=== PATIENT | female | born 1955 | race Caucasian/White ===

== ENCOUNTER → 2025-07-13 05:00 | Outpatient (REF) | payer MEDICARE, SELFPAY ==
--- OUTSIDE RECORDS SUMMARY | 2025-07-13 04:02 | XMS RPT_ITS | CCD ---
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 Primary Care Provider Christy Leach MD Primary Care Provider Christy Mendez Jr. Primary Care Provider Christy Leach MD Primary Care Provider PROVIDER, UNKNOWN Primary Care Unavailable PROVIDER, UNKNOWN Referring Unavailable Antonis, Ino Attending Unavailable PROVIDER, UNKNOWN Referring Unavailable PROVIDER, UNKNOWN Primary Care Unavailable AntonisIno Attending Unavailable Jerome Perdomo Attending Unavailable PROVIDER, UNKNOWN Referring Unavailable PROVIDER, UNKNOWN Primary Care Unavailable Christy Leach MD Primary Care Provider Renuka 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, Jaqueline Unavailable [phone] Christy Leach MD Primary Care Provider Renuka 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, Jaqueline Unavailable Vanessa Carbajal MD, Christy Gill Primary Care Prov ider Renuka 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, Jaqueline Unavailable Frandy 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, Anjana Unavailable Enoc ANAYA, Cuauhtemoc Be Unavailable [phone] Vanessa Carbajal MD, Christy Gill Primary Care Prov ider KIT JACKSON Attending Unavailable MANUEL, KIT Referring Unavailable Irvin LEACH Primary Care Unavailable KIT JACKSON Attending Unavailable MANUEL, KIT Referring Unavailable Irvin LEACH Primary Care Unavailable MANUEL, KIT Attending Unavailable KARNANI, KIT Referring Unavailable DOM DERA, R BRIDGET Primary Care Unavailable KARNANI, KIT Attending Unavailable KARNANI, KIT Referring Unavailable CASE GORDONA, R BRIDGET Primary Care Unavailable KARNANI, KIT Attending Unavailable KARNANI, KIT Referring Unavailable DOM DERA, R BRIDGET Primary Care Unavailable KARNANI, KIT Referring Unavailable KARNANI, KIT Attending Unavailable CASE GORDONA R BRIDGET Primary Care Unavailable KARNANI, KIT Referring Unavailable KARNANI, KIT Attending Unavailable CASE GORDONA, R BRIDGET Primary Care Unavailable KARNANI, KIT Referring Unavailable KARNANI, KIT Attending Unavailable CASE DERA, R BRIDGET Primary Care Unavailable KARNANI, KIT Referring Unavailable KARNANI, KIT Attending Unavailable CASE GORDONA, R BRIDGET Primary Care Unavailable KARNANI, KIT Referring Unavailable KARNANI, KIT Attending Unavailable CASE GORDONA R BRIDGET Primary Care Unavailable CASE GORDONA, R BRIDGET Primary Care Unavailable CASE GORDONA, R BRIDGET Referring Unavailable KARNANI, KIT Attending Unavailable Irvin LEACH Primary Care Unavailable CASE GORDONA, Irvin GILL Referring Unavailable KARNANI, KIT Attending Unavailable CASE GORDONA, R BRIDGET Primary Care Unavailable CASE DERA, R BRIDGET Referring Unavailable KARNANI, KIT Attending Unavailable KARNANI, KIT Attending Unavailable KARNANI, KIT Referring Unavailable CASE GORDONA, R BRIDGET Primary Care Unavailable KARNANI, KIT Attending Unavailable KARNANI, KIT Referring Unavailable CASE GORDONA, R BRIDGET Primary Care Unavailable MOSES ACEVEDO Attending Unavailable CHRISTY MENDEZ JR Primary Care UnaMASON Cintron Attending Unavailable CHRISTY MENDEZ JR Primary Care UnaMOSES Cortez Attending Unavailable CHRISTY MENDEZ JR Primary Care UnavaCUAUHTEMOC Winston Referring Unavailable CUAUHTEMOC STUBBS Attending Unavailable CHRISTY LEACH Primary Care Unavailable CHRISTY LEACH Referring Unavailable CUAUHTEMOC STUBBS Attending Unavailable CHRISTY LEACH Primary Care Unavailable CHRISTY LEACH Referring Unavailable CHRISTY LEACH Attending Unavailable CHRISTY LEACH Primary Care Unavailable CHRISTY LEACH Referring Unavailable CHRISTY LEACH Attending Unavailable CHRISTY LEACH Primary Care Unavailable CUAUHTEMOC STUBBS Referring Unavailable CUAUHTEMOC STUBBS Attending Unavailable CHRISTY LEACH Primary Care Unavailable WILNER KINGSTON Admitting Unavailable LEANNA CORREIA Attending Unavailable CHRISTY LEACH Primary Care Unavailable CUAUHTEMOC MACHADO Attending Unavailable JENNIFER TAYLOR Admitting Unavailable CHRISTY LEACH Primary Care Unavailable Case Rizzo MD, Christy Gill Primary Care Provider Renuka 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, Jaqueline Unavailable Frandy 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, Anjana Unavailable Cuauhtemoc Stubbs MD Unavailable Allergies Allergy Classification Reported Allergen(s) Allergy Type Date of Onset Reaction(s) Facility bimatoprost (2 sources) bimatoprost Drug Allergy 8 Other [facility] Doxycycline (20 sources) Doxycycline Drug Allergy 7 Rash, Hives [facility] Macrolides (antibiotic) (20 sources) Erythromycin Drug Allergy 5 Hives [facility] Mold Extract (20 sources) Mold Extract Drug Allergy 5 Itching [facility] Nitrofurantoin (20 sources) Nitrofurantoin Drug Allergy 5 Itching, Hives [facility] Penicillins (antibiotic) (20 sources) Penicillins Drug Allergy 5 Rash, Hives [facility] Quinolones (antibiotic) (20 sources) levoFLOXacin Drug Allergy 5 Sw[facility], [facility] Doxycycline; Translations: [DOXYCYCLINE] Drug Allergy 7 Rash, Hives [place] (20 sources) Erythromycin; Translations: [ERYTHROMYCIN] Drug Allergy 3 Hives [place] (20 sources) levoFLOXacin Drug Allergy 5 Swelling [place] (20 sources) Mold Extract Drug Allergy 5 Itching [place] (20 sources) Nitrofurantoin; Translations: [NITROFURANTOIN MONOHYD MACRO] Drug Allergy 5 Itching [place] (20 sources) Penicillins; Translations: [PENICILLINS] Propensity to adverse reactions to drug 4 Rash [place] (20 sources) Quinolones (Antibiotic) Propensity to adverse reactions to drug 5 Swelling [place] (20 sources) Macrolides And Ketolides Propensity to adverse reactions to drug 5 [place], [place] (20 sources) Other; Translations: [OTHER] Propensity to adverse reactions 3 Itching [place] (16 sources) bimatoprost; Translations: [BIMATOPROST] Drug Allergy [address] [facility] Work Phone: (16 sources) Doxycycline; Translations: [DOXYCYCLINE HYCLATE] Drug Allergy 7 [facility], [facility] ([facility] sources) levoFLOXacin; Translations: [LEVOFLOXACIN] Drug Allergy 3 Other: See Comments, Angioedema, [facility] (20 sources) Macrolides (Antibiotic); Translations: [MACROLIDE ANTIBIOTICS] Drug Allergy 4 [facility] (16 sources) NITROFURANTOIN, MACROCRYSTALS / Nitrofurantoin, Monohydrate; Translations: [NITROFURANTOIN MONOHYD/M-CRYST] Drug Allergy [address] [facility] (10 sources) Penicillins Propensity to adverse reactions [address] [facility] Work Phone: (16 sources) Mold Spores; Translations: [MOLD SPORES] [facility] Mac[facility] Allergy 4 [facility] (5 sources) Penicillins Propensity to adverse reactions 4 [facility] Work Phone: (20 sources) bimatoprost Drug Allergy 8 Other [facility] (20 sources) Nitrofurantoin Drug Allergy 2 [facility] (20 sources) Penicillins Propensity to adverse reactions to drug 2 [facility] Medications Current Medications Medication Drug Class(es) Dates Sig (Normalized) Sig (Original) acetaminophen 325 mg oral tablet (20 sources) Start: 05-19-2025 End: 05-29-2025 take 650 mg by mouth every six hours as needed for pain and fever Start: 05-11-2025 End: 05-11-2025 Start: 11-04-2024 End: 11-05-2024 take 1 tablet by mouth every six hours as needed for pain 650 mg, Oral, Every 6 hours PRN, mild pain (1-3), Starting on Sun11/04/24 at 1631, Maximum dose of acetaminophen is 4000 mg from all sources in 24 hours. Start: 10-01-2020 take 2 tablets by mo ut every six hours as needed for pain acetaminophen (APAP EXTRA STRENGTH) 500 MG tablet Take 2 tablets by mouth every 6 hours as needed for Pain 120 tablet 0 10/01/2020 Active Start: 09-30-2020 take 650 mg by mouth every four hours as needed for pain, then take 4000 mg by mouth every twenty-four hours as needed for pain 650 mg, Oral, EVERY 4 HOURS PRN, Pain Mild (1-3), Fever, Fever >100.5 F (38 C), Starting Sabina 09/30/20 at 1547 Maximum dose of acetaminophen is 4000 mg from all sources in 24 hours. Post-op Start: 09-30-2020 acetaminophen (TYLENOL) tablet 1,000 mg benoxinate hydrochloride 4 mg/ml / fluorescein sodium 3 mg/ml ophthalmic solution (10 sources) Diagnostic Dye Start: 05-02-2024 End: 05-03-2024 fluorescein-benoxinate 0.3-0.4 % 1 Drop (FLURESS) Start: 05-02-2024 End: 05-03-2024 1 Drop, BOTH EYES, DIRECT ED, Starting on 05/02/24 at 1500, Until 05/03/24 at 0259, Administer for applanation tonometry. In the event of a Fluress shortage, administer 1 drop of Flushing-Fluor into both eyes as directed for applanation tonometry., OPHT CLINIC MED ORDERS Start: 10-26-2023 End: 10-27-2023 fluorescein-benoxinate 0.3-0 .4 % 1 Drop (FLURESS) Start: 04-10-2023 End: 04-11-2023 fluorescein-benoxinate 0.25- 0.4 % 1 Drop (FLURESS) Start: 04-06-2022 End: 04-07-2022 fluorescein-benoxinate 0.25- 0.4 % 1 Drop (FLURESS) Start: 01-06-2022 End: 01-07-2022 fluorescein-benoxinate 0.25- 0.4 % 1 Drop (FLURESS) Start: 12-13-2021 End: 12-13-2021 fluorescein-benoxinate 0.25- 0.4 % 1 Drop (FLURESS) Start: 12-07-2021 End: 12-07-2021 fluorescein-benoxinate 0.25- 0.4 % 1 Drop (FLURESS) Start: 11-30-2021 End: 11-30-2021 fluorescein-benoxinate 0.25- 0.4 % 1 Drop (FLURESS) Start: 11-23-2021 End: 11-23-2021 fluorescein-benoxinate 0.25- 0.4 % 1 Drop (FLURESS) bisacodyl 5 mg delayed release oral tablet (1 source) Stimulant Laxative Start: 09-30-2020 take 5 mg by mouth once daily 5 mg, Oral, DAILY, First dose on Sabina 09/30/20 at 1615 Do not crush or break. Post-op Calcium Citrate / Vitamin D (20 sources) Start: 09-03-2018 take 500 mg by mouth three times daily Calcium Citrate-Vitamin D (CALCIUM CITRATE +D PO) Indications: supplement Take 500 mg by mouth 3 times daily 0 09/03/2018 Active carvedilol 12.5 mg oral tablet (20 sources) alpha-Adrenergic Catrachita, beta-Adrenergic Catrachita Start: 09-30-2020 carvedilol (COREG) tablet 6.25 mg Start: 06-28-2018 carvedilol (CO REG) 6.25 mg tablet Take by mouth q 12 HR. 06/28/2018 Active Start: 06-28-2018 End: 11-01-2023 take 2 tablets by mouth every twelve hours carvedilol (Coreg) 6.25 MG tablet Take 12.5 mg by mouth in the morning and 12.5 mg in the evening. 0 06/28/2018 11/01/2023 Discontinued (Dose adjustment) Start: 06-28-2018 take 1 tablet by cindy th twice daily carvedilol (COREG) 6.25 MG tablet Take 1 tablet by mouth 2 times daily 30 tablet 5 06/28/2018 Active End: 11-05-2024 take 1 tablet by mouth twice daily at mealtime carvedilol (Coreg) 12.5 MG tablet Take 12.5 mg by mouth 2 times daily (with meals). 11/05/2024 Discontinued (Stop taking at discharge) Comment on above: Take by mouth q 12 H R. Continuous Glucose Sensor (FreeStyle Satya 3 Sensor) misc (20 sources) Start: 11-06-2023 Continuous Glucose Sensor (FreeStyle Satya 3 Sensor) misc 1 Device every 14 (fourteen) days. 7 each 3 11/06/2023 Active Start: 11-06-2023 End: 11-06-2023 Continuous Glucose Sensor (F reeStyle Satya 3 Sensor) misc 1 Device every 14 (fourteen) days. 7 each 3 11/06/2023 11/06/2023 Discontinued (Reorder) CPAP (15 sources) CPAP daily at be dtime. Active CPAP daily at be dtime. 0 Active Comment on above: daily at bedtime. CPAP Machine MISC (20 sources) CPAP Machine MIS C Indications: Settings: 10cm H2O RADHA by Does not apply route 0 Active [id number] 0.3 ml EPINEPHrine 1 mg/ml auto-injector (15 sources) alpha-Adrenergic Agonist, beta-Adrenergic Agonist, Catecholamine Start: 05-03-2017 EPINEPHrine (EPIPEN) 0.3 mg/0.3 mL auto-injector Inject 0.3 mg intramuscularly as needed. 05/03/2017 Active Comment on above: Inject 0.3 mg intram uscularly as needed. EPINEPHrine HCl, Anaphylaxis, (EPIPEN IM) (20 sources) EPINEPHrine HCl, Anaphylaxis, (EPIPEN IM) Inject into the muscle as needed 0 Active EPINEPHRINE HCL, ANAPHYLAXIS, IM (20 sources) EPINEPHRINE HCL, ANAPHYLAXIS, IM Inject into the shoulder, thigh, or buttocks. Active EPINEPHRINE HCL, ANAPHYLAXIS, IM Inject into the shoulder, thigh, or buttocks. 0 Active glucose monitoring kit (FREESTYLE) monitoring kit (20 sources) Start: 10-01-2020 glucose monito ring kit (FREESTYLE) monitoring kit USE TO TEST BLOOD GLUCOSE 3 TIMES DAILY 1 kit 0 10/01/2020 Active Start: 10-01-2020 End: 10-01-2020 glucose monitoring kit (FREE STYLE) monitoring kit 1 kit by Does not apply route daily 1 kit 0 10/01/2020 10/01/2020 Discontinued (REORDER) 1 ml hydrALAZINE hydrochloride 20 mg/ml injection (1 source) Arteriolar Vasodilator Start: 09-30-2020 hydrALAZINE (APRESOLINE) injection 10 mg hydroCHLOROthiazide 25 mg oral tablet (20 sources) Thiazide Diuretic Start: 06-22-2017 take 1 tablet by mouth once daily hydroCHLOROthiazide (HYDRODIURIL, ESIDRIX) 25 mg tablet Take 25 mg by mouth once daily. 06/22/2017 Active Comment on above: Take 25 mg by mouth once daily. ibuprofen 600 mg oral tablet (20 sources) Nonsteroidal Anti-inflammator y Drug Start: 10-01-2020 take 1 tablet by mouth four times daily as needed for pain ibuprofen (ADVIL;MOTRIN) 600 MG tablet Take 1 tablet by mouth 4 times daily as needed for Pain 60 tablet 0 10/01/2020 Active Start: 09-30-2020 take 600 mg by mouth every six hours 600 mg, Oral, EVERY 6 HOURS, First dose on Sabina 09/30/20 at 1615 Do not crush or chew. insulin regular human (CONCENTRATED 500 UNIT/ML) (15 sources) inject 7 [IU] by subcutaneous injection once daily insulin regular human (CONCENTRATED 500 UNIT/ML) Inject 7 Units subcutaneously once daily. Active inject 7 [IU] by sub cutaneous injection once daily insulin regular human (CONCENTRATED 500 UNIT/ML) Inject 7 Units subcutaneously once daily. 0 Active inject 20 [IU] by beaulieu bcutaneous injection twice daily insulin regular human (CONCENTRATED 500 UNIT/ML) Inject 20 Units subcutaneously twice daily. 0 Active Comment on above: Inject 20 Units subc utaneously twice daily. Inject 7 Units subcu taneously once daily. loperamide hydrochloride 2 m g oral capsule (20 sources) Opioid Agonist Start: 05-13-2025 End: 05-29-2025 End: 11-05-2024 loperamide (Imodium) 2 MG ca psule Take 2 mg by mouth as needed for diarrhea. 11/05/2024 Discontinued (Stop taking at discharge) losartan potassium 50 mg ora l tablet (20 sources) Angiotensin 2 Receptor Catrachita Start: 05-14-2025 End: 05-20-2026 End: 06-28-2018 take 1 tablet by mouth once daily losartan (COZAAR) 100 MG tablet Indications: Blood Pressure Take 100 mg by mouth daily 0 06/28/2018 Discontinued (REORDER) Multiple Vitamin (multivitamin) tablet (20 sources) take 1 tablet by cindy th once daily Multiple Vitamin (multivitamin) tablet Take 1 tablet by mouth daily. Active MULTIVITAMIN ORAL (15 sources) take 2 tablets by mouth once daily MULTIVITAMIN ORAL Take 2 tablets by mouth once daily. Flintstones-not gummies Active take 2 tablets by mouth once neo ly MULTIVITAMIN ORAL Take 2 tablets by mouth once daily. Flintstones-not gummies 0 Active MULTIVITAMIN ORA L Take by mouth. Flintstones-not gummies 0 Active Comment on above: Take by mouth. [place] stones-not gummies Take 2 tablets by mo uth once daily. Flintstones-not gummies mupirocin 0.02 mg/mg topical ointment (5 sources) RNA Synthetase Inhibitor Antibacterial Start: 04-09-20 End: 04-19-20 mupirocin (Bactroban) 2 % ointment Apply topically 3 times daily for 10 days. 22 g 0 04/09/2023 04/19/2023 Active omeprazole 20 mg delayed release oral capsule (2 sources) Proton Pump Inhibitor Start: 03-20-20 17 take 1 capsule by mouth once daily omeprazole (PRILOSEC) 20 MG delayed release capsule Take 1 capsule by mouth daily 30 capsule 3 03/20/2017 Active oxyCODONE hydrochloride 5 mg oral tablet (2 sources) Opioid Agonist Start: 10-02-19 21 End: 10-06-19 21 take 1 tablet by mouth every six hours as needed for pain oxyCODONE (ROXICODONE) 5 MG immediate release tablet Indications: Post-operative state Take 1 tablet by mouth every 6 hours as needed for Pain for up to 12 doses. Intended supply: 3 days. Take lowest dose possible to manage pain 12 tablet 0 10/01/2020 10/05/2020 Active Start: 09-30-2020 oxyCODONE (MICHEL ICODONE) immediate release tablet 5 mg Pedi Multivit No.7-Folic Aci d 100 mcg chew (5 sources) Pedi Multivit No .7-Folic Acid 100 mcg chew Take 1 tablet by mouth. Active Pedi Multivit No .7-Folic Acid 100 mcg chew Take 1 tablet by mouth. 0 Active Comment on above: Take 1 tablet by cindy th. Pediatric Multivitamins-Iron (CHILDRENS MULTIVITAMIN/IRON PO) (20 sources) Start: 02-08-20 take 2 tablets by mouth once daily Pediatric Multivitamins-Iron (CHILDRENS MULTIVITAMIN/IRON PO) Indications: Supplement Take 2 tablets by mouth daily 0 02/07/2018 Active phenylephrine hydrochloride 25 mg/ml ophthalmic solution (5 sources) alpha-1 Adrenergic Agonist Start: 05-02-20 End: 05-03-20 PHENYLephrine 2.5 % 1 Drop (AK-DILATE, ROSLYN-SYNEPHRINE) Start: 05-02-2024 End: 05-03-2024 1 Drop, BOTH EYES, DIRECT ED, Starting on Sun05/02/24 at 1500, Until 05/03/24 at 0259, Administer for dilation PROTECT FROM LIGHT, OPHT CLINIC MED ORDERS Start: 11-13-2023 End: 11-14-2023 PHENYLephrine 2.5 % 1 Drop ( AK-DILATE, ROSLYN-SYNEPHRINE) Start: 04-10-2023 End: 04-11-2023 PHENYLephrine 2.5 % 1 Drop ( AK-DILATE, ROSLYN-SYNEPHRINE) Start: 04-06-2022 End: 04-07-2022 PHENYLephrine 2.5 % 1 Drop ( AK-DILATE, ROSLYN-SYNEPHRINE) Polyethyl Glycol-Propyl Glycol (SYSTANE OP) (20 sources) Polyethyl Glycol -Propyl Glycol (SYSTANE OP) Apply to eye as needed 0 Active Promethazine (1 source) Phenothiazine Start: 09-30-2020 promethazine (PHENERGAN) tablet 12.5 mg proparacaine hydrochloride 5 mg/ml ophthalmic solution (4 sources) Local Anesthetic Start: 05-02-2024 End: 05-03-2024 proparacaine 0.5 % 1 Drop (ALCAINE) Start: 11-13-2023 End: 11-14-2023 proparacaine 0.5 % 1 Drop (A LCAINE) Start: 04-10-2023 End: 04-11-2023 proparacaine 0.5 % 1 Drop (A LCAINE) Start: 04-06-2022 End: 04-07-2022 proparacaine 0.5 % 1 Drop (A LCAINE) sulfamethoxazole 800 mg / trimethoprim 160 mg oral tablet (20 sources) Dihydrofolate Reductase Inhibitor Antibacterial, Sulfonamide Antimicrobial Start: 04-09-2023 End: 04-16-2023 take 1 tablet by mouth twice daily sulfamethoxazole-trimethoprim (Bactrim DS) 800-160 MG tablet Take 1 tablet by mouth 2 times daily for 7 days. 14 tablet 0 04/09/2023 04/16/2023 Active End: 11-05-2024 take 1 tablet by mouth every twelve hours sulfamethoxazole-trimethoprim (Bactrim D S) 800-160 MG tablet Take 1 tablet by mouth in the morning and 1 tablet in the evening. 11/05/2024 Discontinued (Stop taking at discharge) End: 12-19-2016 take 1 tablet by mouth twice daily sulfamethoxazole-trimethoprim (BACTRIM;SEPTRA) 400-80 MG per tablet Take 1 tablet by mouth 2 times daily 0 12/19/2016 Discontinued (Therapy completed) triamcinolone acetonide 1 mg/ml topical cream (20 sources) Corticosteroid Start: 03-12-2024 triamcinolone acetonide (KENALOG) 0.1 % cream APPLY TOPICALLY TO THE AFFECTED AREA 1 TO 2 TIMES DAILY NEEDED. AVOID FACE AND GROIN 03/12/2024 Active Start: 11-07-2023 End: 05-01-2024 triamcinolone (Kenalog) 0.1 % cream Apply to affected area 1-2 times daily as needed. Avoid face and groin. 30 g 2 2024 05/01/2024 Active Start: 01-17-2023 End: 09-20-2023 triamcinolone (Kenalog) 0.1 % cream Apply to affected area 1-2 times daily as needed. Avoid face and groin. 30 g 2 05/23/2023 09/20/2023 Active Start: 08-02-2022 End: 09-01-2022 triamcinolone (Kenalog) 0.1 % cream Apply topically 2 times daily. 80 g 2 08/02/2022 09/01/2022 Active Start: 07-05-2022 End: 11-05-2024 triamcinolone (Kenalog) 0.1 % cream tropicamide 10 mg/ml ophthalmic solution (5 sources) Anticholinergic Start: 05-02-2024 End: 05-03-2024 tropicamide 1 % 1 Drop (MYDRIACYL) Start: 05-02-2024 End: 05-03-2024 1 Drop, BOTH EYES, DIRECT ED, Starting on Sun05/02/24 at 1500, Until 05/03/24 at 0259, Administer for dilation, OPHT CLINIC MED ORDERS Start: 11-13-2023 End: 11-14-2023 tropicamide 1 % 1 Drop (MYDR IACYL) Start: 04-10-2023 End: 04-11-2023 tropicamide 1 % 1 Drop (MYDR IACYL) Start: 04-06-2022 End: 04-07-2022 tropicamide 1 % 1 Drop (MYDR IACYL) vitamin b12 1 mg sublingual tablet (20 sources) Vitamin B12 Start: 02-07-2018 Cyanocobalamin (VITAMIN B-12) 1000 MCG SUBL Indications: Supplement Place 1,000 mcg under the tongue once a week 0 02/07/2018 Active End: 11-06-2024 take 1 tablet by mouth every week cyanocobalamin (Vitamin B-12) 1000 MCG tablet Take 1,000 mcg by mouth 1 (one) time per week. 11/06/2024 Discontinued (Therapy completed) Comment on above: Take 1,000 mcg by mo uth one time a week. VITAMIN D, CHOLECALCIFEROL, PO (20 sources) Start: 09-03-2018 VITAMIN D, CHOLECALCIFEROL, PO Indications: supplement Take 8,000 Int'l Units by mouth daily Indications: supplement 0 09/03/2018 Active Start: 09-03-2018 VITAMIN D, CHO LECALCIFEROL, PO Indications: supplement Take 4,000 Int'l Units by mouth daily 0 09/03/2018 Active Zinc (20 sources) Start: 06-21-2018 take 1 tablet by cindy once daily Zinc 50 MG TABS Indications: Zinc Deficiency Take 50 mg by mouth daily 0 06/21/2018 Active (2 sources) Start: 01-19-2023 (2 sources) Start: 11-06-2023 (2 sources) Start: 11-06-2023 (2 sources) (6 sources) Start: 05-19-2025 Start: 05-13-2025 End: 05-19-2025 Start: 05-13-2025 End: 05-19-2025 Completed/Discontinued Medications Medication Drug Class(es) Dates Sig (Normalized) Sig (Original) [id number] 200 actuat albuterol 0.09 mg/actuat metered dose inhaler (20 sources) beta2-Adrenergic Agonist Start: 11-16-2015 End: 05-19-2025 Start: 11-16-2015 take 2 puff(s) by in halation every six hours as needed albuterol 108 (90 Base) MCG/ACT inhaler Inhale 2 puffs every 6 hours as needed. 11/16/2015 Active Start: 11-16-2015 albuterol 108 (90 Base) MCG/ACT inhaler Inhale 2 puffs. 0 11/16/2015 Active Start: 04-07-2004 take 2 puff(s) by in halation every six hours as needed ALBUTEROL 90MCG INHALER inhale 2 puffs q6h prn 0 04/07/2004 Active take 2 puff(s) by in halation twice daily as needed for wheezing albuterol (PROVENTIL HFA;VENTOLIN HFA) 108 (90 BASE) MCG/ACT inhaler Indications: asthma Inhale 2 puffs into the lungs 2 times daily as needed for Wheezing 0 Active take 2 puff(s) by in halation twice daily as needed for wheezing albuterol (PROVENTIL HFA;VENTOLIN HFA) 108 (90 BASE) MCG/ACT inhaler Indications: asthma Inhale 2 puffs into the lungs 2 times daily as needed for Wheezing 0 Active Comment on above: inhale 2 puffs q6h p rn ALPRAZolam 0.25 mg disintegrating oral tablet (1 source) Benzodiazepine Start: 10-01-19 End: 10-01-19 21 ALPRAZolam (NIRAVAM) dissolvable tablet 0.25 mg apixaban 5 mg oral tablet (20 sources) Factor Xa Inhibitor Start: 11-03-19 25 End: 05-19-20 atorvastatin 40 mg oral tablet (20 sources) HMG-CoA Reductase Inhibitor Start: 11-03-19 18 take 1 tablet by mouth once daily atorvastatin (LIPITOR) 80 MG tablet Take 1 tablet by mouth daily 90 tablet 3 11/02/2017 Active Start: 03-10-2013 End: 05-19-2025 Comment on above: Take 40 mg by mouth once daily. augmented betamethasone 0.5 mg/ml topical cream (20 sources) Corticosteroid End: 01-12-20 17 augmented betamethasone dipropionate (DIPROLENE AF) 0.05 % cream Apply topically 2 times daily Apply topically 2 times daily. 0 01/11/2017 Discontinued onabotulinumtoxina 100 unt injection (20 sources) Acetylcholine Release Inhibitor Start: 05-13-20 End: 10-02-19 21 onabotulinumtoxin A (BOTOX) injection 200 Units brimonidine tartrate 2 mg/ml ophthalmic solution (20 sources) alpha-Adrenergic Agonist Start: 05-11-20 End: 05-19-20 Start: 11-02-2024 End: 11-05-2024 1 drop, Both Eyes, 3 times d aily, First dose on 11/02/24 at 0900, Substituted for brimonidine (Alphagan P) 0.1% or 0.15%. Start: 10-26-2023 Start: 10-26-2023 brimonidine (A lphaGAN P) 0.1 % ophthalmic solution Administer 1 drop into both eyes in the morning and 1 drop at noon and 1 drop in the evening. 10/26/2023 Active Start: 10-05-2022 End: 10-26-2023 take 0.1 drop(s) into the eye(s) three times daily brimonidine (ALPHAGAN P) 0.1 % drop Indications: Primary open angle glaucoma of both eyes, mild stage , Cortical cataract of both eyes Use 1 Drop in both eyes three times a day. 90 day supply 30 mL 3 10/26/2023 Active Start: 10-05-2022 End: 11-01-2023 brimonidine (Alphagan P) 0.1 % ophthalmic solution 1 drop in the morning and 1 drop at noon and 1 drop in the evening. 0 10/05/2022 11/01/2023 Discontinued (Dose adjustment) Start: 08-02-2021 End: 01-05-2023 brimonidine (Alphagan P) 0.1 % ophthalmic solution every 8 hours. 0 08/02/2021 01/05/2023 Discontinued (Duplicate order) Start: 08-02-2021 take 0.1 drop(s) int o the eye(s) three times daily brimonidine (ALPHAGAN P) 0.1 % drop Indications: Primary open angle glaucoma of both eyes, mild stage , Cortical cataract of both eyes Use 1 Drop in both eyes three times daily. 30 mL 3 08/02/2021 Active take 1 drop(s) into the eye(s) three times daily brimonidine (ALPHAGAN P) 0.1 % SOLN Indications: Glaucoma 1 drop 3 times daily 1 drop into each eye 0 Active Comment on above: Use 1 Drop in both e yes three times daily. Use 1 Drop in both e yes three times daily. 90 day supply Use 1 Drop in both e yes three times a day. 90 day supply calcium chloride 0.0014 meq/ml / potassium chloride 0.004 meq/ml / sodium chloride 0.103 meq/ml / sodium lactate 0.028 meq/ml injectable solution (1 source) Start: 09-30-2020 End: 09-30-2020 lactated ringers infusion calcium citrate 950 mg oral tablet (5 sources) End: 10-01-2020 take 1 tablet by mouth once daily calcium citrate (CALCITRATE) 950 MG tablet Take 1 tablet by mouth daily 0 10/01/2020 Discontinued (Stop Taking at Discharge) CALCIUM CITRATE-VITAMIN D PO (20 sources) End: 12-19-2016 take 600 mg by mouth once CALCIUM CITRATE-VITAMIN D PO Take 600 mg by mouth 0 12/19/2016 Discontinued (DISCONTINUED BY ANOTHER CLINICIAN) ceFAZolin (ANCEF) 3,000 mg in dextrose 5 % 100 mL IVPB (1 source) Start: 09-30-2020 End: 09-30-2020 ceFAZolin (ANCEF) 3,000 mg in dextrose 5 % 100 mL IVPB cefTRIAXone (Rocephin) 1,000 mg in sodium chloride 0.9 % 50 mL IVPB Mini-Bag Plus (4 sources) Start: 11-02-2024 End: 11-04-2024 1,000 mg, IntraVENous, at 100 mL/hr, Administer over 30 Minutes, Every 24 hours, First dose on 11/02/24 at 2100, Mini-Bag Plus bag, Suspected Indication (Select all that apply): Urinary Tract Infection Start: 11-01-2024 End: 11-01-2024 1,000 mg, IntraVENous, at 10 0 mL/hr, Administer over 30 Minutes, Once, On 4/12/25 at 1940, For 1 dose, Mini-Bag Plus bag, Suspected Indication (Select all that apply): Urinary Tract Infection cephalexin 500 mg oral capsule (6 sources) Cephalosporin Antibacterial Start: 11-04-2024 End: 11-06-2024 take 1 capsule by mouth twice daily cephalexin (Keflex) 500 MG capsule Take 1 capsule (500 mg) by mouth 2 times daily for 1 dose. 1 capsule 11/05/2024 11/06/2024 Discontinued (Therapy completed) cholecalciferol 0.05 mg oral tablet (20 sources) Vitamin D Start: 05-12-2025 End: 05-19-2025 End: 11-06-2024 take 1 tablet by mouth once daily cholecalciferol (Vitamin D-3) 50 MCG (2000 UT) tablet Take 2,000 Units by mouth daily. 11/06/2024 Discontinued (Therapy completed) take 1 tablet by cindy th in the morning cholecalciferol (Vitamin D-3) 50 MCG (2000 UT) tablet Take 2,000 Units by mouth in the morning. Active Comment on above: Take 2,000 Units by mouth once daily. Take 4 tablets daily cholecalciferol 9.52 unt/ml / glucose 357 mg/ml oral gel (4 sources) Vitamin D Start: 05-11-2025 End: 05-19-2025 Start: 11-01-2024 End: 11-05-2024 15 g, Oral, As needed, low b lood sugar, Starting on 11/01/24 at 2330, If blood glucose less than 50 mg/dL and patient ALERT and NOT NPO, give 2 tubes glucose gel. If blood glucose less than 70 mg/dL and patient ALERT and NOT NPO, give 1 tube glucose gel. Repeat blood glucose in 15 minutes. If blood glucose is less than 70 mg/dL, repeat treatment and recheck blood glucose in 15 minutes x2 and notify provider. citalopram 20 mg oral tablet (20 sources) Serotonin Reuptake Inhibitor Start: 10-01-2020 End: 05-19-2025 citalopram (Marjorie XA) 20 MG tablet Take by mouth Every 24 hours. Active End: 06-22-2017 citalopram (CELEXA) 40 MG ta blet Indications: depression Take 20 mg by mouth daily Indications: depression 0 06/22/2017 Discontinued (DOSE ADJUSTMENT) Comment on above: Take 20 mg by mouth. Take 20 mg by mouth once daily. Continuous Blood Gluc Sensor (FreeStyle Satya 2 Sensor) misc (20 sources) Start: 07-07-2022 End: 11-06-2023 Continuous Blood Gluc Sensor (FreeStyle Satya 2 Sensor) misc 1 Device every 14 (fourteen) days. 9 each 3 07/07/2022 11/06/2023 Discontinued (Med list cleanup) Start: 07-07-2022 Continuous Blo od Gluc Sensor (FreeStyle Satya 2 Sensor) misc 1 Device every 14 (fourteen) days. 9 each 3 07/07/2022 Active Drug or medicament (substanc e) (6 sources) Start: 05-12-2025 End: 05-19-2025 Start: 05-12-2025 End: 05-19-2025 End: 05-19-2025 0.5 ml dulaglutide 1.5 mg/ml auto-injector (15 sources) GLP-1 Receptor Agonist Start: 07-19-2022 End: 07-19-2023 inject 0.75 mg by subcutaneous injection every week dulaglutide (Trulicity) 0.75 MG/0.5ML solution pen-injector Inject 0.75 mg under the skin 1 (one) time per week. 12 each 3 07/19/2022 10/06/2022 Discontinued (Med list cleanup) Start: 04-08-2021 Dulaglutide (T RULICITY) 0.75 MG/0.5ML SOPN Inject 0.75 mg into the skin once a week 12 pen 3 04/08/2021 Active F18 FDG radio-isotope injection 11.682 millicurie (2 sources) Start: 2025 End: 2025 11.682 millicurie, IntraVENous, Once, On Sun01/02/25 at 1100, For 1 dose famotidine 20 mg oral tablet (1 source) Histamine-2 Receptor Antagonist Start: 09-30-2020 End: 09-30-2020 famotidine (PEPCID) tablet 20 mg 2 ml fentaNYL 0.05 mg/ml injection (3 sources) Opioid Agonist Start: 12-22-2024 End: 12-22-2024 IntraVENous, As needed, Starting on Sun12/22/24 at 1018, Intraprocedure Start: 09-30-2020 End: 09-30-2020 fentaNYL (SUBLIMAZE) injecti on 25 mcg fluconazole 150 mg oral tablet (20 sources) Azole Antifungal Start: 09-21-2022 End: 11-02-2023 take 1 tablet by mouth once fluconazole (Diflucan) 150 MG tablet TAKE 1 TABLET BY MOUTH 1 TIME FOR 1 DAY 0 09/21/2022 11/02/2023 Discontinued (Therapy completed) Start: 05-17-2022 End: 11-05-2024 take 1 tablet by mouth once daily as needed fluconazole (Diflucan) 200 MG tablet Take 1 tablet by mouth daily. PRN yeast infections 05/17/2022 11/05/2024 Discontinued (Stop taking at discharge) Start: 08-03-2020 fluconazole (D IFLUCAN) 200 mg tablet Take 150 mg by mouth once daily. As needed 08/03/2020 Active Start: 08-03-2020 take 1 tablet by cindy th once daily as needed fluconazole (DIFLUCAN) 200 mg tablet Take 200 mg by mouth once daily. As needed 0 08/03/2020 Active Comment on above: Take 200 mg by mouth once daily. As needed Take 150 mg by mouth once daily. As needed fluticasone propionate 0.05 mg/actuat metered dose nasal spray (5 sources) Corticosteroid Start: 04-12-20 End: 10-02-19 fluticasone (FLONASE) 50 MCG/ACT nasal spray 1 spray by Nasal route daily 1 Bottle 3 04/12/2017 10/01/2020 Discontinued (Stop Taking at Discharge) furosemide 40 mg oral tablet (20 sources) Loop Diuretic End: 01-23-20 take 1 tablet by mouth once daily furosemide (LASIX) 40 MG tablet Indications: HTN, edema, pt states she does not take due to incontinence Take 40 mg by mouth daily 0 01/22/2018 Discontinued (Patient Choice) gabapentin 100 mg oral capsule (1 source) Anti-epileptic Agent Start: 10-01-19 End: 10-01-19 gabapentin (NEURONTIN) capsule 100 mg glucagon (rdna) 1 mg injection (5 sources) Antihypoglycemic Agent Start: 05-11-20 End: 05-19-20 Start: 11-01-2024 End: 11-05-2024 1 mg, IntraMUSCular, PRN, lo w blood sugar, Blood glucose less than 70 mg/dL and patient NOT ALERT or NPO and does not have IV access., Starting on 11/01/24 at 2330, After administration, attempt intravenous access and start D5W at 100 mL/hr. Repeat blood glucose in 15 minutes x2 and notify provider. Start: 09-30-2020 glucagon (rDNA ) injection 1 mg 50 ml glucose 50 mg/ml injec tion (20 sources) Start: 05-11-2025 End: 05-19-2025 Start: 05-11-2025 End: 05-19-2025 Start: 11-02-2024 End: 11-05-2024 Start: 11-01-2024 End: 11-05-2024 100 mL/hr, IntraVENous, PRN, Blood sugar less than 70mg/dL, Starting on 11/01/24 at 2330, Start infusion following administration of dextrose 50% or glucagon. Start: 11-01-2024 End: 11-05-2024 12.5 g, IntraVENous, PRN, lo w blood sugar, Blood glucose less than 70 mg/dL and patient NOT ALERT or NPO., Starting on 11/01/24 at 2330, If patient does not respond within 5 minutes, repeat dose x1. Start D5W at 100 mL/hour until ordering provider can be reached. Repeat blood glucose in 15 minutes. If blood glucose is less than 70 mg/dL, repeat treatment and recheck blood glucose in 15 minutes x2. If using Glucostabilizer, dose as instructed per system. Start: 09-30-2020 dextrose 5 % s olution Start: 09-30-2020 glucose (GLUTO SE) 40 % oral gel 15 g Start: 09-30-2020 dextrose 50 % IV solution glucose 4 g chew able tablet Chew 16 g if needed for low blood sugar. Active glucose 4 g chew able tablet Chew 16 g if needed for low blood sugar. 0 Active 250 ml glucose 50 mg/ml / sodium chloride 4.5 mg/ml injection (2 sources) Start: 11-01-2024 End: 11-05-2024 take 250 mg intravenously every hour as needed 250 mL/hr, IntraVENous, Continuous PRN, blood glucose LESS than or EQUAL to 250 mg/dL, Starting on 11/01/24 at 1908, When blood glucose equals 250 mg/dL or below, DISCONTINUE saline IV Fluid using Per Protocol order mode and start using this dextrose containing IV fluid order. DO NOT restart saline infusion if subsequent blood glucose returns above 250 mg/dL. 250 ml heparin sodium, porcine 100 unt/ml injection (4 sources) Unfractionated Heparin, Anti-coagulant Start: 11-02-2024 End: 11-02-2024 4,000 Units, IntraVENous, Once, On 11/02/24 at 0250, For 1 dose, Initial one time bolus Start: 11-02-2024 End: 11-02-2024 5-30 Units/kg/hr 107 kg (5.3 5-32.1 mL/hr, rounded to 5.4-32.1 mL/hr), IntraVENous, Continuous, Starting on 11/02/24 at 0250, LOW Dose Heparin Weight Based Dosing (CAD/STEMI/NSTEMI/AFIB/ECMO) >>>>Initial dose: 9 units/kg/hr 95.9 Hold heparin for 60 min Decrease infusion by 2 units/kg/hr - notify prescriber; Check aPTT: 6 hours after initiation and 6 hours after every dose change - every 12 hrs x 1 day after 2 consecutive therapeutic aPTT - daily after every 12 hrs x 1 day is complete. Contact provider for further directions if: a) The patient has reached maximum dose and has not achieved the goal of therapy or b) If this medication is held outside of ordered parameters hydrocortisone valerate 2 mg/ml topical cream (20 sources) Corticosteroid End: 11-05-2024 hydrocortisone (West-Dmitri) 0.2 % cream Apply topically every 12 hours. 11/05/2024 Discontinued (Stop taking at discharge) hydrocortisone v alerate (WESTCORT) 0.2 % cream Apply to affected area twice daily. Active hydrocortisone 0 .5 % cream Indications: Skin Rash Apply topically 2 times daily as needed Apply topically 2 times daily. 0 Active Comment on above: Apply to affected ar ea twice daily. 1 ml HYDROmorphone hydrochloride 1 mg/ml cartridge (1 source) Opioid Agonist Start: 09-30-2020 End: 09-30-2020 HYDROmorphone (DILAUDID) injection 0.5 mg insulin glargine 100 unt/ml injectable solution (20 sources) Insulin Analog Start: 05-11-2025 End: 05-19-2025 Start: 11-02-2024 End: 05-19-2026 Start: 11-12-2023 LANTUS SOLOSTA R U-100 INSULIN 100 unit/mL (3 mL) 11/12/2023 Active Start: 05-09-2023 End: 11-05-2024 insulin glargine (Lantus SoloStar) 100 UNIT/ML pen Inject 16 Units under the skin Nightly. 15 mL 3 11/06/2023 11/05/2024 Discontinued (Stop taking at discharge) Start: 07-07-2022 End: 10-06-2023 inject 25 [IU] by subcutaneous injection once daily insulin glargine (Lantus) 100 UNIT/ML injection Inject 25 Units under the skin Nightly. 30 mL 3 10/06/2022 10/06/2023 Active Start: 03-07-2022 End: 10-06-2022 Lantus SoloStar 100 UNIT/ML pen Inject 25 Units under the skin Nightly. 0 03/07/2022 10/06/2022 Discontinued Start: 04-18-2021 insulin glargi ne (BASAGLAR KWIKPEN) 100 UNIT/ML injection pen Inject 25 Units into the skin nightly 8 pen 3 04/18/2021 Active insulin lispro 100 unt/ml in jectable solution (20 sources) Insulin Analog Start: 11-02-2024 End: 11-05-2025 Start: 05-09-2023 End: 11-05-2024 inject 16 [IU] by subcutaneous injection once daily insulin lispro (HumaLOG) 100 UNIT/ML pen injection Inject 16 Units under the skin daily with supper. 14.4 mL 3 11/06/2023 11/05/2024 Discontinued (Stop taking at discharge) Start: 09-30-2020 insulin lispro (HUMALOG) injection vial 0-18 Units Insulin Lispro (Humalog) injection 0-18 Units (2 sources) Start: 11-02-2024 End: 11-05-2024 Insulin Lispro (Humalog) injection 0-18 Units insulin isophane, human 100 unt/ml injectable suspension (3 sources) Start: 11-01-2024 End: 11-02-2024 inject 1 dose by subcutaneous injection every twelve hours 16 Units (rounded from 16.05 Units = 0.15 Units/kg 107 kg), SubCUTAneous, Every 12 hours, First dose on 11/01/24 at 1930, Give at onset and every 12 hours. If BGT is Start: 09-30-2020 End: 09-30-2020 insulin NPH (HUMULIN N;NOVOL IN N) injection vial 25 Units iopamidol (Isovue-370) 76 % injection 75 mL (4 sources) Start: 11-11-2024 End: 11-11-2024 take 75 mL intravenously once as needed 75 mL, IntraVENous, IMG once PRN, contrast, Starting on Sun11/11/24 at 0913, For 1 dose Start: 12-04-2023 End: 12-04-2023 iopamidol (Isovue-370) 76 % injection 75 mL ketorolac tromethamine 5 mg/ml ophthalmic solution (20 sources) Nonsteroidal Anti-inflammatory Drug, Cyclooxygenase Inhibitor Start: 08-05-2021 End: 11-13-2023 keTORolac (ACULAR) 0.5 % ophthalmic solution Use 1 Drop in the left eye four times daily. Start 2 days before surgery, then continue afterwards. 5 mL 2 08/05/2021 11/13/2023 Discontinued (Course of therapy completed) Start: 08-05-2021 keTORolac (ACU LAR) 0.5 % ophthalmic solution Use 1 Drop in the left eye four times daily. Start 2 days before surgery, then continue afterwards. 5 mL 2 08/05/2021 Active Comment on above: Use 1 Drop in the le ft eye four times daily. Start 2 days before surgery, then continue afterwards. Use 1 Drop in the ri ght eye four times daily. Start 2 days before surgery, then continue afterwards. levothyroxine (20 sources) l-Thyroxine Start: 05-12-2025 End: 05-19-2025 Start: 11-02-2024 End: 11-05-2024 take 175 ug by mouth once daily before breakfast 175 mcg, Oral, Daily before breakfast, First dose on 11/02/24 at 0600, Tube feeding (TF) interaction, obtain physician order to manage, recommend holding TF for 30 minutes before and after dose. Start: 10-01-2020 take 175 ug by mouth once dre y 175 mcg, Oral, DAILY, First dose on Sun10/01/20 at 0700 Tube feeding (TF) interaction, obtain physician order to manage, recommend holding TF for 30 minutes before and after dose. Start: 06-06-2016 End: 11-06-2023 levothyroxine (S ynthroid, Levoxyl) 137 MCG tablet Take 175 mcg by mouth in the morning. 0 Active Comment on above: Take 175 mcg by mout h once daily. 10 ml lidocaine hydrochloride 10 mg/ml injection (2 sources) Antiarrhythmic, Amide Local Anesthetic Start: 12-23-19 End: 12-23-19 As needed, Starting on Sun12/22/24 at 1020, Intraprocedure 50 ml magnesium sulfate 40 mg/ml injection (2 sources) Start: 05-11-20 End: 05-12-20 melatonin 5 mg oral tablet (16 sources) End: 05-19-20 metFORMIN hydrochloride 500 mg oral tablet (20 sources) Biguanide Start: 10-07-19 End: 01-20-20 take 1 tablet by mouth in the morning metFORMIN (Glucophage) 500 MG tablet Take 1 tablet (500 mg) by mouth in the morning and 1 tablet (500 mg) in the evening. Take with meals. 360 tablet 3 10/06/2022 01/19/2023 Discontinued (Therapy completed) Start: 04-08-2021 take 1 tablet by cindy th twice daily at mealtime metFORMIN (GLUCOPHAGE-XR) 500 MG extended release tablet Take 1 tablet by mouth 2 times daily (with meals) 180 tablet 0 04/08/2021 Active Start: 10-01-2020 take 1 tablet by cindy th twice daily at mealtime metFORMIN (GLUCOPHAGE-XR) 500 MG extended release tablet Take 1 tablet by mouth 2 times daily (with meals) 180 tablet 0 10/01/2020 Active End: 05-19-2025 take 1 tablet by cindy th in the morning metFORMIN (Glucophage) 500 MG tablet Take 500 mg by mouth in the morning and 500 mg in the evening. 0 Active Comment on above: Take 500 mg by mouth twice daily. 5 ml metoprolol tartrate 1 m g/ml injection (20 sources) beta-Adrenergic Catrachita Start: 05-13-2025 End: 05-19-2025 Start: 05-11-2025 End: 05-19-2026 Start: 11-03-2024 End: 11-05-2025 Start: 11-03-2024 take 25 mg by mouth once 25 mg , Oral, Once, On 11/03/24 at 1215, For 1 dose Start: 11-02-2024 End: 11-03-2024 take 25 mg by mouth twice daily 25 mg, Oral, 2 times d aily, First dose on 11/02/24 at 0250 miconazole nitrate 0.02 mg/mg topical powder (6 sources) Azole Antifungal Start: 05-12-2025 End: 05-19-2025 2 ml midazolam 1 mg/ml injection (2 sources) Benzodiazepine Start: 12-22-2024 End: 12-22-2024 IntraVENous, As needed, Starting on Sun12/22/24 at 1018, Intraprocedure 24 hr mirabegron 50 mg extended release oral tablet (20 sources) beta3-Adrenergic Agonist End: 11-05-2024 mirabegron ER (Myrbetriq) 50 MG 24 hr tablet Every 24 hours. PRN 11/05/2024 Discontinued (Stop taking at discharge) take 50 mg by mouth once daily M IRABEGRON ORAL Take 50 mg by mouth once daily. Active Comment on above: Take 50 mg by mouth. Take 50 mg by mouth once daily. Multiple Vitamin (MULTIVITAMINS PO) (20 sources) End: 03-07-2018 take 1 mg by mouth once daily Multiple Vitamin (MULTIVITAMINS PO) Indications: supplement Take 1 mg by mouth daily Indications: supplement 0 03/07/2018 Discontinued (ERROR) multivitamin, Pediatric, (Flintstones Gummies) chewable tablet (20 sources) End: 11-06-2024 multivitamin, Pediatric, (Flintstones Gummies) chewable tablet Chew 2 tablets. With iron 11/06/2024 Discontinued (Therapy completed) multivitamin, Pe diatric, (Flintstones Gummies) chewable tablet Chew 2 tablets. With iron Active multivitamin, Pe diatric, (Flintstones Gummies) chewable tablet Chew 2 tablets. With iron 0 Active multivitamin, Pe diatric, (Flintstones Gummies) chewable tablet Chew 1 tablet. 0 Active 1 ml naloxone hydrochloride 0.4 mg/ml injection (2 sources) Opioid Antagonist Start: 05-11-2025 End: 05-19-2025 nitroglycerin 0.4 mg sublingual tablet (2 sources) Nitrate Vasodilator Start: 11-02-2024 End: 11-05-2024 0.4 mg, SubLINGual, Every 5 min PRN, chest pain, Starting on 11/02/24 at 0131, May administer up to 3 doses per episode. olmesartan medoxomil 40 mg oral tablet (20 sources) Angiotensin 2 Receptor Catrachita Start: 12-02-2018 End: 11-05-2024 take 1 tablet by mouth once daily olmesartan (BENIcar) 40 MG tablet Indications: Primary hypertension Take 1 tablet (40 mg) by mouth daily. 90 tablet 3 05/09/2023 11/05/2024 Discontinued (Stop taking at discharge) Comment on above: 1 tab(s) once daily. 2 ml ondansetron 2 mg/ml injection (1 source) Serotonin-3 Receptor Antagonist Start: 09-30-2020 End: 09-30-2020 ondansetron (ZOFRAN) injection 4 mg Pedi Multivit No.7-Folic Acid (FLINTSTONES MULTI-VIT GUMMIES) 100 mcg chew (10 sources) Pedi Multivit No.7-Folic Acid (FLINTSTONES MULTI-VIT GUMMIES) 100 mcg chew Take 1 tablet by mouth. 0 Active Comment on above: Take 1 tablet by cindy th. perflutren protein A microsphere (Optison) 3 mL in sodium chloride (PF) 0.9 % 10 mL IV (2 sources) Start: 11-02-2024 End: 11-05-2024 0-10 mL, IntraVENous, IMG once PRN, other, Suboptimal echo image, Starting on 11/02/24 at 1306, For 1 dose, CV Procedural Medications, Administer via slow IVP for suboptimal echocardiogram enhancement. May administer as divided doses to reach optimal image enhancement polyethylene glycol 3350 [id number] mg powder for oral solution (4 sources) Osmotic Laxative Start: 05-11-2025 End: 05-19-2025 take 17 g by mouth every twenty-four hours as needed for constipation Start: 11-02-2024 End: 11-05-2024 take 17 g by mouth every twenty-four gt rs as needed for constipation potassium chloride 20 meq po wder for oral solution (20 sources) Start: 05-14-2025 End: 05-14-2025 Start: 03-01-2015 End: 01-22-2018 potassium chloride (MICRO-K) 10 MEQ CR capsule Indications: doesn't take Take 10 mEq by mouth daily 0 03/01/2015 01/22/2018 Discontinued (Patient Choice) prednisoLONE acetate 10 mg/ml ophthalmic suspension (20 sources) Corticosteroid Start: 08-05-2021 End: 11-13-2023 prednisoLONE acetate (PRED FORTE, ECONOPRED PLUS) 1 % ophthalmic suspension Use 1 Drop in the left eye four times daily. Start day of surgery. 15 mL 2 08/05/2021 11/13/2023 Discontinued (Course of therapy completed) Start: 08-05-2021 prednisoLONE a cetate (PRED FORTE, ECONOPRED PLUS) 1 % ophthalmic suspension Use 1 Drop in the left eye four times daily. Start day of surgery. 15 mL 2 08/05/2021 Active Comment on above: Use 1 Drop in the le ft eye four times daily. Start day of surgery. Use 1 Drop in the ri ght eye four times daily. Start the day of surgery Probiotic Product (ACIDOPHILUS PROBIOTIC BLEND PO) (20 sources) End: 06-21-2018 Probiotic Product (ACIDOPHILUS PROBIOTIC BLEND PO) Indications: Supplement Take 2 capsules by mouth as needed 0 06/21/2018 Discontinued (ERROR) Proteins (20 sources) End: 11-05-2024 PROTEIN PO Take by mouth. 11/05/2024 Discontinued (Stop taking at discharge) PROTEIN PO Take by mouth. Active PROTEIN PO Take by mouth. 0 Active PROTEIN PO Take by mouth daily 0 Active insulin, regular, human 100 unt/ml injectable solution (20 sources) Insulin Start: 05-11-2025 End: 05-11-2025 Start: 11-01-2024 End: 11-02-2024 1-50 Units/hr (1-50 mL/hr), IntraVENous, Continuous, Starting on 11/01/24 at 1915, As guided by calculator flowsheet Low target: 150 High target: 200 *Do NOT stop, pause, or decrease insulin drip outside of calculator without an order from ATTENDING physician ONLY *If anion gap (AG) is not able to be calculated due to CO2 250 mg/dL: If BGT increases increase infusion by 2 units/hr. If BGT decreases look at anion gap - For anion gap LESS than or EQUAL to 12 do not change insulin. - For anion gap GREATER than 12 increase insulin drip by 2 units/hr. Administer maintenance IV fluid per order For BGT 201-250 mg/dL: If BGT increases increase infusion by 2 units/hr. If BGT decreases look at anion gap - For anion gap LESS than or EQUAL to 12 do not change insulin. - For anion gap GREATER than 12 increase insulin drip by 2 units/hr. Discontinue saline IV fluid per protocol and start D5/.45NS @ 250ml/hr (w/ or w/o KCL, depending on order) For BGT 151-200 mg/dL: For first BGT result between 151 and 200: - For anion gap LESS than or EQUAL to 12 decrease insulin drip by 25% and start/continue D5/.45NS @ 250ml/hr (w/ or w/o KCL, depending on order) - For anion gap GREATER than 12 do not change insulin and notify provider For subsequent BGT results between 151 and 200: Do not change insulin drip rate or D5/.45NS fluid rate. Call provider if BGT rebounds to > 200. For BGT 101-150 mg/dL: For first BGT result between 101 and 150: - For anion gap LESS than or EQUAL to 12 decrease insulin drip by 25% and discontinue D5/.45NS and start D10 at 200ml/hr. - For anion gap GREATER than 12 do not change insulin and notify provider For subsequent BGT results between 101 and 150: Do not change insulin drip rate or D10 rate. For BGT 70-100 mg/dL: For first BGT between 70 and 100: - For anion gap LESS than or EQUAL to 12 decrease insulin drip by 50% and start/continue D10 at 200ml/hr. Call provider. - For anion gap GREATER than 12 do not change insulin and notify provider Repeat BGT every 30 minutes until BGT is >= 100 or until 2 consecutive BGTs remain >= 70. For subsequent BGTs between 70 and 100: Do not change insulin drip rate. For ALL BGT = 70. BUD: 30 days at room temperature Start: 01-19-2023 End: 05-09-2023 HumuLIN R 500 UNIT/ML CONCEN TRATED injection 8 units with breakfast 5 units with dinner per orange tip insulin syringe 60 mL 3 01/19/2023 05/09/2023 Discontinued Start: 10-19-2022 End: 01-19-2023 HumuLIN R 500 UNIT/ML CONCEN TRATED injection 8 units with breakfast 5 units with dinner 0 10/19/2022 01/19/2023 Discontinued (Reorder) Start: 10-01-2020 insulin regula r human (humuLIN R U-500 KWIKPEN) 500 UNIT/ML concentrated injection pen 50 Units Start: 09-30-2020 insulin regula r (HUMULIN R;NOVOLIN R) injection 10 Units Start: 01-25-2018 insulin regula r human (HUMULIN R) 500 UNIT/ML concentrated injection vial Indications: AM and after dinner, pt is currently taking less due to Opti fast Draw up to 22 units before breakfast and dinner 1 vial 8 01/25/2018 Active Start: 12-01-2015 End: 03-27-2017 insulin regular human (HUMUL IN R) 500 UNIT/ML injection 18 units in am and 20 units pm 4 vial 3 12/01/2015 03/27/2017 Discontinued (REORDER) End: 11-06-2023 inject 7 [IU] by subcutaneous injection at mealtime insulin regular (HumuLIN R) 500 UNIT/ML CONCENTRATED injection Inject 7 Units under the skin. When she eats first meals 0 11/06/2023 Discontinued (Med list cleanup) End: 10-06-2022 inject 7 [IU] by subcutaneous injection once daily insulin regular (HumuLIN R) 500 UNIT/ML CONCENTRATED injection Inject 7 Units under the skin daily. 0 10/06/2022 Discontinued (Therapy completed) End: 10-01-2020 insulin regular human (HUMUL IN R U-500) 500 UNIT/ML concentrated injection vial Inject 10 Units into the skin once Daily with breakfast 0 10/01/2020 Discontinued (Stop Taking at Discharge) insulin regular human (HUMULIN R U-500) 500 UNIT/ML concentrated injection vial Inject 10 Units into the skin 2 times daily (with meals) 0 Active Semaglutide,0.25 or 0.5MG/DO S, 2 MG/3ML solution pen-injector (20 sources) Start: 10-06-2022 End: 01-19-2023 Semaglutide,0.25 or 0.5MG/DO S, 2 MG/3ML solution pen-injector Inject 0.25-0.5 mg under the skin 1 (one) time per week. 0.25 mg weeklyx 4 weeks then 0.5 mg weekly 9 mL 3 10/06/2022 01/19/2023 Discontinued (Therapy completed) Start: 10-06-2022 Semaglutide,0. 25 or 0.5MG/DOS, 2 MG/3ML solution pen-injector Inject 0.25-0.5 mg under the skin 1 (one) time per week. 0.25 mg weeklyx 4 weeks then 0.5 mg weekly 9 mL 3 10/06/2022 Active 50 ml sodium chloride 9 mg/m l injection (20 sources) Start: 05-11-2025 End: 05-19-2025 Start: 05-11-2025 End: 05-19-2025 Start: 12-22-2024 End: 12-23-2024 take 50 mL intravenously every hour 50 mL/hr, IntraVENous, Continuous, Starting on 12/22/24 at 0815, Preprocedure Start: 11-02-2024 End: 11-03-2024 take 75 mL intravenously every hour 75 mL/hr, IntraVENous, Continuous, Starting on 11/02/24 at 0245 Start: 11-01-2024 End: 11-01-2024 take 250 mg intravenously every hour 250 mL/hr, IntraVENous, Continuous, Starting on 11/01/24 at 1915, When blood glucose equals 250 mg/dL or below, DISCONTINUE saline IV fluid using Per Protocol order mode and start using the dextrose containing IV fluid order previously placed as CONTINUOUS PRN. DO NOT restart saline infusion if subsequent blood glucose returns above 250 mg/dL. Start: 11-01-2024 End: 11-01-2024 1,000 mL, IntraVENous, at 1, 000 mL/hr, Administer over 1 Hours, Once, On 11/01/24 at 1735, For 1 dose Start: 09-30-2020 10 mL, Intrave nous, EVERY 12 HOURS SCHEDULED (2 times per day), First dose on Sabina 09/30/20 at 2100, Post-op Start: 09-30-2020 take 10 mL intravenous route o nce 10 mL, Intravenous, PRN, Line Care, Starting Sabina 09/30/20 at 1547 After every IV line use Post-op therapeutic multivitamin-minerals (Theragran-M) tablet (2 sources) Start: 05-12-2025 End: 05-19-2025 12 hr timolol 5 mg/ml ophthalmic solution (20 sources) beta-Adrenerg ic Catrachita Start: 10-26-2023 take 1 drop(s) into the eye(s) in the morning timolol (Timoptic) 0.5 % ophthalmic solution Administer 1 drop into both eyes in the morning and 1 drop in the evening. 10/26/2023 Active Start: 10-05-2022 End: 05-19-2025 Start: 10-05-2022 End: 11-01-2023 take 1 drop(s) into the eye(s) in the morning timolol (Timoptic) 0.5 % ophthalmic solution 1 drop in the morning and 1 drop in the evening. 0 10/05/2022 11/01/2023 Discontinued (Dose adjustment) Start: 08-02-2021 timolol maleat e (TIMOPTIC) 0.5 % ophthalmic solution Use 1 Drop in both eyes twice daily. 15 mL 3 08/02/2021 Active Comment on above: Use 1 Drop in both e yes twice daily. Use 1 Drop in both e yes twice daily. 90 day supply Use 1 Drop in both e yes two times a day. 90 day supply tobramycin 3 mg/ml ophthalmic solution (20 sources) Aminoglycoside Antibacterial Start: End: take 1 drop(s) into the eye(s) four times daily tobramycin (TOBREX) 0.3 % ophthalmic solution Use 1 Drop in the right eye four times daily. Start 2 days before surgery. 5 mL 2 08/05/2021 11/13/2023 Discontinued (Course of therapy completed) Start: 08-05-2021 take 1 drop(s) into the eye(s) four times daily tobramycin (TOBREX) 0.3 % ophthalmic solution Use 1 Drop in the right eye four times daily. Start 2 days before surgery. 5 mL 2 08/05/2021 Active Comment on above: Use 1 Drop in the ri ght eye four times daily. Start 2 days before surgery. Use 1 Drop in the le ft eye four times daily. Start 2 days before surgery. UNABLE TO FIND (1 source) End: 10-06-2022 UNABLE TO FIND valsartan 320 mg oral tablet (20 sources) Angiotensin 2 Receptor Catrachita Start: 11-08-2021 End: 01-19-2023 valsartan (Diovan) 320 MG tablet Comment on above: Take 320 mg by mouth once daily. (2 sources) End: 05-19-2025 (2 sources) Start: 11-06-2023 End: 05-19-2025 (4 sources) Start: 05-12-2025 End: 05-12-2025 Start: 05-11-2025 End: 05-12-2025 (14 sources) Start: 05-12-2025 End: 05-13-2025 take 2000 mg intravenously every eight hours Start: 05-12-2025 End: 05-19-2025 [Order 1 Start] Name: Insuli n Lispro (Humalog) injection 0-12 Units Signed Summary: 0-12 Units, SubCUTAneous, 3 times daily with meals, First dose on Sun05/12/25 at 0800, Medium Dose Correction Algorithm Glucose: Dose: LESS than 150 No Insulin 150-199 2 Units 200-249 4 Units 250-299 6 Units 300-349 8 Units 350-400 10 Units Above 400 12 Units [Order 1 End] [Order 2 Start] Name: Insulin Lispro (Humalog) injection 0-12 Units Signed Summary: 0-12 Units, SubCUTAneous, Nightly, First dose on Sun05/11/25 at 2245, If eating or bolus tube feeding: Medium Dose Correction Algorithm Glucose: Dose: LESS than 150 No Insulin 150-199 2 Units 200-249 4 Units 250-299 6 Units 300-349 8 Units 350-400 10 Units Above 400 12 Units [Order 2 End] Start: 05-12-2025 End: 05-12-2025 Start: 05-11-2025 End: 05-19-2025 take 2.5 mg by mouth every four hours as needed for pain [Order 1 Start] Name: oxyCODONE (Roxicodone) immediate release tablet 2.5 mg Signed Summary: 2.5 mg, Oral, Every 4 hours PRN, moderate pain (4-6), Starting on Sun05/11/25 at 2248 [Order 1 End] [Order 2 Start] Name: oxyCODONE (Roxicodone) immediate release tablet 5 mg Signed Summary: 5 mg, Oral, Every 4 hours PRN, severe pain (7-10), Starting on Sun05/11/25 at 2248 [Order 2 End] Start: 05-11-2025 End: 05-19-2025 take 10 mg by mouth every six hours as needed for nausea and vomiting [Order 1 Start] Name: prochlorperazine (Compazine) tablet 10 mg Signed Summary: 10 mg, Oral, Every 6 hours PRN, nausea, vomiting, Starting on Sun05/11/25 at 2248, 1st Line. If inadequate response within 60 minutes, proceed to next-line agent or contact provider if no further options ordered. [Order 1 End] [Order 2 Start] Name: prochlorperazine (Compazine) injection 10 mg Signed Summary: 10 mg, IntraVENous, Every 6 hours PRN, nausea, vomiting, Starting on Sun05/11/25 at 2248, 1st Line. Give IV if patient is unable to take orally. Give IM if patient is unable to take orally and does not have IV access. If inadequate response within 60 minutes, proceed to next-line agent or contact provider if no further options ordered. [Order 2 End] [Order 3 Start] Name: prochlorperazine (Compazine) suppository 25 mg Signed Summary: 25 mg, Rectal, Every 12 hours PRN, nausea, vomiting, Starting on Sun05/11/25 at 2248, 1st Line. Give OR if patient is unable to take orally or receive by injection. If inadequate response within 60 minutes, proceed to next-line agent or contact provider if no further options ordered. [Order 3 End] Start: 05-11-2025 End: 05-19-2025 take 650 mg by mouth every six hours as needed for pain and fever [Order 1 Start] Name: acetaminophen (Tylenol) tablet 650 mg Signed Summary: 650 mg, Oral, Every 6 hours PRN, mild pain (1-3), fever, For temp greater than 100.4 F (38 C), Starting on 05/11/25 at 2246, Maximum dose of acetaminophen is 4000 mg from all sources in 24 hours. [Order 1 End] [Order 2 Start] Name: acetaminophen (Tylenol) suppository 650 mg Signed Summary: 650 mg, Rectal, Every 6 hours PRN, fever, For temp greater than 100.4 F (38 C), Starting on 05/11/25 at 2246, Administer if oral route cannot be used. Maximum dose of acetaminophen is 4000 mg from all sources in 24 hours. [Order 2 End] Start: 05-11-2025 End: 05-11-2025 (2 sources) Start: 05-12-2025 End: 05-12-2025 Problems Active Problems Problem Classification Problem Date Documented Date Episodic/Chronic Asthma (20 sources) Asthma without status asthmaticus; Translations: [Unspecified asthma, uncomplicated] Onset: 07-05-2022 Resolved: 11-06-2024 07-05-2022 Chronic Cancer of uterus (20 sources) Malignant neoplasm of endometrium of corpus uteri ; Translations: [Malignant neoplasm of endometrium] Onset: 09-30-2020 09-30-2020 Chronic Cardiac dysrhythmias (20 sources) Persistent atrial fibrillation; Translations: [Other persistent atrial fibrillation] Onset: 11-06-2024 11-02-2024 Chronic Cataract (20 sources) Cortical cataract; Translations: [Unspecified cataract] Onset: 05-05-2015 Resolved: 12-06-2021 08-05-2018 Chronic Chronic ulcer of skin (20 sources) Non-pressure chronic ulcer of unspecified part of left lower leg limited to breakdown of skin; Translations: [Ulcer of lower limb, unspecified] Onset: 04-09-2023 Resolved: 11-08-2024 04-09-2023 Chronic Congestive heart failure; nonhypertensive (20 sources) Diastolic heart failure; Translations: [Unspecified diastolic (congestive) heart failure] Onset: 11-01-2023 Resolved: 11-08-2024 11-01-2023 Chronic Diabetes mellitus with complications (20 sources) Type II diabetes mellitus uncontrolled; Translations: [Mixed hyperlipidemia due to type 2 diabetes mellitus] Onset: 05-05-2015 Resolved: 11-10-2024 01-31-2018 Chronic Disorders of lipid metabolism (20 sources) Mixed hyperlipidemia; Translations: [Mixed hyperlipidemia] Onset: 04-20-2015 Resolved: 11-06-2024 01-29-2018 Chronic Esophageal disorders (20 sources) Gastroesophageal reflux disease without esophagitis; Translations: [Gastro-esophageal reflux disease without esophagitis] Onset: 04-07-2004 03-20-2017 Chronic Essential hypertension (20 sources) Benign essential hypertension; Translations: [Essential (primary) hypertension] Onset: 04-20-2015 Resolved: 11-06-2024 01-29-2018 Chronic Genitourinary symptoms and ill-defined conditions (20 sources) Urinary incontinence; Translations: [Unspecified urinary incontinence] Onset: 11-01-2023 11-01-2023 Chronic Glaucoma (20 sources) Primary open angle glaucoma; Translations: [Primary open-angle glaucoma, bilateral, mild stage] Onset: 05-05-2015 Resolved: 11-06-2024 11-13-2016 Chronic Heart valve disorders (20 sources) Nonrheumatic aortic (valve) stenosis; Translations: [Aortic valve disorders] Onset: 11-06-2024 11-06-2024 Chronic Heart valve disorders (4 sources) Heart murmur; Translations: [Cardiac murmur, unspecified] 03-14-2024 Episodic Menopausal disorders (20 sources) Postmenopausal bleeding; Translations: [Postmenopausal bleeding] Onset: 09-03-2020 09-03-2020 Chronic Mood disorders (20 sources) Recurrent major depressive episodes, moderate ; Translations: [Major depressive disorder, recurrent, moderate] Onset: 07-05-2022 07-05-2022 Chronic Nutritional deficiencies (20 sources) Vitamin D deficiency; Translations: [Vitamin D deficiency, unspecified] Onset: 05-10-2017 12-27-2017 Chronic Other circulatory disease (2 sources) Arterial insufficiency; Translations: [Stricture of artery] Chronic Other congenital anomalies (20 sources) Thyroglossal duct cyst; 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] Onset: 07-05-2022 07-05-2022 Chronic Other diseases of bladder and urethra (8 sources) Bladder muscle dysfunction - overactive; Translations: [OAB (overactive bladder)] Onset: 03-24-2015 03-24-2015 Chronic Other diseases of bladder and urethra (20 sources) Overactive bladder; Translations: [Overactive bladder] Onset: 03-24-2015 03-24-2015 Chronic Other diseases of veins and lymphatics (20 sources) Lymphedema of bilateral lower limbs; Translations: [Lymphedema, not elsewhere classified] Onset: 11-01-2023 11-01-2023 Chronic Other endocrine disorders (20 sources) Polycystic ovary syndrome; Translations: [Polycystic ovarian syndrome] Onset: 11-01-2023 11-01-2023 Chronic Other eye disorders (2 sources) Excess skin of eyelid; Translations: [Dermatochalasis of right upper eyelid] 04-10-2023 Episodic Other female genital disorders (1 source) Vaginal discharge; Translations: [Other specified noninflammatory disorders of vagina] 03-04-2024 Episodic Other liver diseases (20 sources) Steatosis of liver; Translations: [Fatty (change of) liver, not elsewhere classified] Onset: 01-29-2018 01-29-2018 Chronic Other lower respiratory disease (18 sources) Multiple nodules of lung; Translations: [Other nonspecific abnormal finding of lung field] 12-08-2024 Episodic Other nutritional; endocrine; and metabolic disorders (20 sources) Morbid obesity; Translations: [Morbid (severe) obesity due to excess calories] Onset: 01-31-2018 01-31-2018 Chronic Other nutritional; endocrine; and metabolic disorders (15 sources) Body mass index 40+ - severely obese; Translations: [Morbid (severe) obesity due to excess calories] Onset: 09-03-2020 09-03-2020 Chronic Other nutritional; endocrine; and metabolic disorders (3 sources) Severe obesity; Translations: [Morbid (severe) obesity due to excess calories] 01-19-2023 Chronic Other nutritional; endocrine; and metabolic disorders (3 sources) Insulin resistance; Translations: [Metabolic syndrome] 01-19-2023 Chronic Other nutritional; endocrine; and metabolic disorders (2 sources) Weight decreased; Translations: [Abnormal weight loss] 11-03-2024 Episodic Other upper respiratory disease (20 sources) Chronic rhinitis; Translations: [Chronic rhinitis] Onset: 11-01-2023 11-01-2023 Chronic Other upper respiratory infections (20 sources) Chronic sinusitis; Translations: [Chronic sinusitis, unspecified] Onset: 03-12-2013 07-05-2022 Chronic Residual codes; unclassified (20 sources) Obstructive sleep apnea syndrome; Translations: [Obstructive sleep apnea (adult) (pediatric)] Onset: 12-26-2016 Resolved: 11-06-2024 12-26-2016 Chronic Residual codes; unclassified (2 sources) Obstructive sleep apnea (adult) (pediatric); Translations: [Obstructive sleep apnea (adult) (pediatric)] Onset: 11-01-2023 Chronic Residual codes; unclassified (7 sources) Edema, generalized; Translations: [Generalized edema] Episodic Residual codes; unclassified (15 sources) Amnesia; Translations: [Other amnesia] 11-05-2024 Episodic Residual codes; unclassified (2 sources) Delirium; Translations: [Disorientation, unspecified] 11-03-2024 Episodic Residual codes; unclassified (2 sources) Other general symptoms and signs; Translations: [Other general symptoms] 01-01-2025 Episodic Retinal detachments; defects; vascular occlusion; and retinopathy (1 source) Hypertensive retinopathy; Translations: [Hypertensive retinopathy, bilateral] 11-13-2023 Chronic Thyroid disorders (20 sources) Hypothyroidism; Translations: [Hypothyroidism, unspecified] Onset: 04-20-2015 04-22-2015 Chronic Unclassified (3 sources) OAB (overactive bladder) Onset: 03-24-2015 03-24-2015 Unclassified (1 source) Non-pressure chronic ulcer of abdomen limited to breakdown of skin; Translations: [Non-pressure chronic ulcer of abdomen limited to breakdown of skin] Onset: 05-11-2025 Unclassified (2 sources) Other persistent atrial fibrillation; Translations: [Other persistent atrial fibrillation (HCC)] Onset: 11-01-2024 Past or Other Problems Problem Classification Problem Date Documented Da te Episodic/Chronic Biliary tract disease (20 sources) Calculus of gallbladder with cholecystitis; Translations: [Chronic cholecystitis with calculus] Onset: 8 01-29-2018 Episodic Blindness and vision defects (20 sources) Disorder of refraction; Translations: [Unspecified disorder of refraction] Onset: 5 Resolved: 5 05-05-2015 Episodic Diabetes mellitus without complication (3 sources) Type 2 diabetes mellitus; Translations: [Insulin treated type 2 diabetes mellitus] Onset: 7 Resolved: 9 05-12-2019 Chronic Diabetes mellitus without complication (20 sources) Hyperglycemia; Translations: [Hyperglycemia, unspecified] Onset: 5 Resolved: 5 11-02-2024 Episodic Gastritis and duodenitis (20 sources) Gastritis; Translations: [Gastritis, unspecified, without bleeding] Onset: 7 Resolved: 5 03-20-2017 Episodic Malaise and fatigue (20 sources) Fatigue; Translations: [Other fatigue] Onset: 8 06-20-2018 Episodic Mycoses (20 sources) Candidal vulvovaginitis; Translations: [Candidal vulvovaginitis] Onset: 2 Resolved: 5 07-05-2022 Episodic Nutritional deficiencies (20 sources) Zinc deficiency; Translations: [Vitamin deficiency] Onset: 8 Resolved: 5 06-21-2018 Episodic Other aftercare (1 source) [facility] (current) use of insulin; Translations: [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 macular edema, with long-term current use of insulin (HCC)] Onset: 4 Episodic Other and ill-defined heart disease (20 sources) Cardiomegaly; Translations: [Cardiomegaly] Onset: 2 Resolved: 5 07-05-2022 Chronic Other and ill-defined heart disease (20 sources) Diastolic dysfunction; Translations: [Other ill-defined heart diseases] Onset: 2 Resolved: 5 07-05-2022 Chronic Other diseases of veins and lymphatics (20 sources) Lymphedema; Translations: [Lymphedema, not elsewhere classified] Onset: 8 Resolved: 5 12-27-2017 Chronic Other endocrine disorders (20 sources) Polycystic ovary; Translations: [Polycystic ovarian syndrome] Onset: 2 Resolved: 5 07-05-2022 Chronic Other eye disorders (20 sources) Disorder of lacrimal gland; Translations: [Dry eye syndrome of bilateral lacrimal glands] Onset: 9 11-04-2018 Episodic Other eye disorders (20 sources) Epithelial basement membrane dystrophy; 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] Onset: 3 Episodic Other gastrointestinal disorders (20 sources) Intestinal malabsorption; Translations: [Intestinal malabsorption, unspecified] Onset: 8 Resolved: 5 02-06-2018 Chronic Other gastrointestinal disorders (15 sources) History of bypass of stomach; Translations: [Bariatric surgery status] Onset: 1 09-03-2020 Episodic Other lower respiratory disease (20 sources) Dyspnea on exertion; Translations: [Shortness of breath] Onset: 7 Resolved: 5 12-26-2016 Episodic Other lower respiratory disease (2 sources) Other nonspecific abnormal finding of lung field; Translations: [Other nonspecific abnormal finding of lung field] Onset: 5 Episodic Other nervous system disorders (20 sources) Impaired cognition; Translations: [Other symptoms and signs involving cognitive functions and awareness] Onset: 5 11-06-2024 Episodic Other nutritional; endocrine; and metabolic disorders (20 sources) Body mass index 30+ - obesity; Translations: [Obesity, unspecified] Onset: 1 Resolved: 5 10-01-2020 Chronic Other nutritional; endocrine; and metabolic disorders (12 sources) Abnormal weight loss; Translations: [Abnormal weight loss] Onset: 5 11-11-2024 Episodic Other nutritional; endocrine; and metabolic disorders (19 sources) Weight increased; Translations: [Abnormal weight gain] Onset: 5 11-21-2024 Episodic Other nutritional; endocrine; and metabolic disorders (1 source) Abnormal weight loss; Translations: [Abnormal weight loss] Onset: 5 Episodic Other upper respiratory infections (20 sources) Posterior rhinorrhea; Translations: [Postnasal drip] Onset: 7 Resolved: 5 04-12-2017 Episodic Residual codes; unclassified (20 sources) Postoperative state; Translations: [Other specified postprocedural states] Onset: 1 Resolved: 1 10-30-2020 Episodic Residual codes; unclassified (20 sources) Inadequate sleep hygiene; Translations: [Inadequate sleep hygiene] Onset: 5 11-10-2024 Episodic Residual codes; unclassified (2 sources) Other amnesia; Translations: [Other amnesia] Onset: 5 Episodic Residual codes; unclassified (2 sources) Disorientation, unspecified; Translations: [Disorientation, unspecified] Onset: 5 Episodic Residual codes; unclassified (5 sources) Postoperative state; Translations: [Post-operative state] Onset: 1 Resolved: 1 09-30-2020 Skin and subcutaneous tissue infections (19 sources) Cellulitis of lower limb; Translations: [Cellulitis of unspecified part of limb] Onset: 5 11-21-2024 Episodic Unclassified (1 source) Non-pressure chronic ulcer of abdomen limited to breakdown of skin; Translations: [Non-pressure chronic ulcer of abdomen limited to breakdown of skin] Onset: 5 Urinary tract infections (4 sources) Acute cystitis; Translations: [Acute cystitis with hematuria] Onset: 5 11-02-2024 Episodic Results Test Name Value Interpretation Reference Range [facility] [id number] 05-20-2025 [id number] Patient Choice Patient Name: DAMEON POTTER Date of : 1955 [facility] [id number] 05-19-2025 [id number] [facility] [id number] [address] Patient/Family Choice [facility] [id number] [facility] [id number] [facility] [id number] [facility]. [facility] BASIC METABOLIC PANELon - Anion gap [Moles/Vol] 7 mmol/L Normal - [facility] Comment on above: Performed By: #### L [id number] ####Numerical Control Drill Press Operator: NIEVES RUIZ ([id number])[facility] ([address] Calcium [Mass/Vol] 8.2 mg/dL Low 8.8-10.0 [facility] Comment on above: Performed By: #### L [id number] ####Numerical Control Drill Press Operator: NIEVES RUIZ ([id number])[facility])[address] [place] [address] Chloride [Moles/Vol] 107 mmol/L Normal 98-107 [facility] Comment on above: Performed By: #### L AB15 ####Numerical Control Drill Press Operator: NIEVES RUIZ ([id number])[facility] ([facility])[address] [place] [address] CO2 [Moles/Vol] 22 mmol/L Low 23-31 [facility] Comment on above: Performed By: #### L AB15 ####Numerical Control Drill Press Operator: NIEVES RUIZ ([id number])[facility])[address] [place] [address] Creatinine [Mass/Vol] 0.59 mg/dL Normal 0.58-1.12 [facility] Comment on above: Performed By: #### L [id number] ####Numerical Control Drill Press Operator: NIEVES RUIZ ([id number])[facility] ([facility])[address] [place] [address] GLOMERULAR FILTRATION RATE ML/MIN/1.73 SQ M.PREDICTED >90.0 Normal >60.0 [facility] Comment on above: Result Comment: Calc ulation based on the Chronic Kidney Disease Epidemiology Collaboration (CKD-EPI) equation refit without adjustment for race Performed By: #### L AB15 ####Numerical Control Drill Press Operator: NIEVES RUIZ ([id number])[facility] ([facility])[address] [place] [address] Glucose [Mass/Vol] 116 mg/dL High 82-115 [facility] Comment on above: Performed By: #### L AB15 ####Numerical Control Drill Press Operator: NIEVES RUIZ ([id number])[facility])[address] [place] [address] Potassium [Moles/Vol] 4.3 mmol/L Normal 3.5-5.1 [facility] Comment on above: Result Comment: Plas ma potassium values may be up to 0.5 mmol/L lower than serum values. Performed By: #### L AB15 ####Numerical Control Drill Press Operator: NIEVES RUIZ ([id number])[facility])[address] [place] [address] Sodium [Moles/Vol] 136 mmol/L Normal 136-145 [facility] Comment on above: Performed By: #### L AB15 ####Numerical Control Drill Press Operator: NIEVES RUIZ ([id number])[facility] ([facility])[address] [place] [address] Urea nitrogen [Mass/Vol] 18 mg/dL Normal 9-23 [facility] Comment on above: Performed By: #### L AB15 ####Numerical Control Drill Press Operator: NIEVES RUIZ ([id number])[facility])[address] [place] [address] Basic metabolic 1998 panelon 05-19-2025 Anion gap [Moles/Vol] 7 mmol/L 3 - 13 mmol/L [facility] Calcium [Mass/Vol] 8.2 mg/dL Low 8.8 - 10. 0 mg/dL [facility] Chloride [Moles/Vol] 107 mmol/L 98 - 10 7 mmol/L [facility] CO2 [Moles/Vol] 22 mmol/L Low 23 - 31 mmol/L [facility] Creatinine [Mass/Vol] 0.59 mg/dL 0.58 - 1.12 mg/dL [facility] GFR/1.73 sq M.predicted (S/P/Bld) [Vol rate/Area] - PINF [facility] Glucose [Mass/Vol] 116 mg/dL High 82 - 115 mg/dL [facility] Interpretation and review of laboratory results Abnormal [facility] Potassium [Moles/Vol] 4.3 mmol/L 3.5 - 5.1 mmol/L [facility] Sodium [Moles/Vol] 136 mmol/L 136 - 145 mmol/L [facility] Urea nitrogen [Mass/Vol] 18 mg/dL 9 - 23 mg/dL [facility] CBC W Auto Differential pane l (Bld)on 05-19-2025 Basophils (Bld) [#/Vol] 0.1 10*3/uL 0.0 - 0.2 10*3/uL [facility] Basophils/100 WBC (Bld) 0.9 % 0.0 - 2.0 % [facility] Eosinophils (Bld) [#/Vol] 0.2 10*3/uL 0. 0 - 0.5 10*3/uL [facility] Eosinophils/100 WBC (Bld) 2.1 % 0.0 - 6.0 % [facility] Erythrocyte distribution width (RBC) [Ratio] 13.3 % 11.5 - 15.0 % [facility] Hematocrit (Bld) [Volume fraction] 31.3 % Low 35.0 - 47.0 % [facility] Hemoglobin (Bld) [Mass/Vol] 10 g/dL Low 11.7 - 16.0 g/dL [facility] Immature granulocytes (Bld) [#/Vol] 0.1 10*3/uL High NINF - 0.1 10*3/uL [facility] Immature granulocytes/100 WBC (Bld) 1.6 % 0.0 - 2.0 % [facility] Interpretation and review of laboratory results Abnormal [facility] th Lymphocytes (Bld) [#/Vol] 0.8 10*3/uL Low 1. 0 - 4.3 10*3/uL [facility] Lymphocytes/100 WBC (Bld) 10.8 % Low 15 .0 - 45.0 % [facility] MCH (RBC) [Entitic mass] 29.7 pg 26. 0 - 34.0 pg [facility] MCHC (RBC) [Mass/Vol] 31.9 % 30.5 - 36.0 % [facility] MCV (RBC) [Entitic vol] 92.9 fL 77.0 - 99.0 fL [facility] Monocytes (Bld) [#/Vol] 0.7 10*3/uL 0.0 - 0.9 10*3/uL [facility] Monocytes/100 WBC (Bld) 8.6 % 5.0 - 13.0 % [facility] Neutrophils (Bld) [#/Vol] 5.8 10*3/uL 1. 8 - 7.5 10*3/uL [facility] Neutrophils/100 WBC (Bld) 76 % 38 .0 - 82.0 % [facility] Nucleated RBC/100 WBC (Bld) [Ratio] 0 % [facility] Platelet mean volume (Bld) [Entitic vol] 11.3 fL 9.0 - 12.7 fL [facility] Platelets (Bld) [#/Vol] 291 10*3/uL 140 - 440 10*3/uL [facility] RBC (Bld) [#/Vol] 3.37 10*6/uL Low 3.80 - 5.2 0 10*6/uL [facility] WBC (Bld) [#/Vol] 7.6 10*3/uL 3.6 - 10.7 10*3/uL [facility] CBC WITH AUTO DIFFERENTIALon 05-19-2025 Basophils (Bld) [#/Vol] 0.1 10*3/uL Normal 0.0-0.2 [facility] Comment on above: Performed By: #### L [id number] ####[employer] Operator: NIEVES RUIZ ([phone])[facility] ([facility])[address] [place] [address] Basophils/100 WBC (Bld) 0.9 % Normal 0.0-2.0 [facility] Comment on above: Performed By: #### L [id number] ####[employer] Operator: NIEVES RUIZ ([id number])[facility] ([facility])[address] [place] [address] Eosinophils (Bld) [#/Vol] 0.2 10*3/uL Normal 0.0-0.5 [facility] Comment on above: Performed By: #### L [id number] ####[employer] Operator: NIEVES RUIZ ([phone])[facility] ([facility])[address] [place] [address] Eosinophils/100 WBC (Bld) 2.1 % Normal 0.0-6.0 [facility] Comment on above: Performed By: #### L [id number] ####[employer] Operator: NIEVES RUIZ ([phone])[facility])[address] [place] [address] Erythrocyte distribution width (RBC) [Ratio] 13.3 % Normal 11.5-15.0 [facility] Comment on above: Performed By: #### L [id number] ####[employer] Operator: NIEVES RUIZ ([phone])[facility])[address] [place] [address] Hematocrit (Bld) [Volume fraction] 31.3 % Low 35.0-47.0 [facility] Comment on above: Performed By: #### L [id number] ####[employer] Operator: NIEVES RUIZ ([phone])[facility])[address] [place] [address] Hemoglobin (Bld) [Mass/Vol] 10.0 g/dL Low 11.7-16.0 [facility] Comment on above: Performed By: #### L [id number] ####[employer] Operator: NIEVES RUIZ ([phone])[facility])[address] [place] [address] IMMATURE GRANS % 1.6 % Normal 0.0-2.0 [facility] Comment on above: Performed By: #### L [id number] ####[employer] Operator: NIEVES RUIZ ([phone])[facility])[address] [place] [address] IMMATURE GRANS ABSOLUTE 0.1 10*3/uL High <0.1 [facility] Comment on above: Performed By: #### L [id number] ####[employer] Operator: NIEVES RUIZ ([phone])[facility])[address] [place] [address] Lymphocytes (Bld) [#/Vol] 0.8 10*3/uL Low 1.0-4.3 [facility] Comment on above: Performed By: #### L [id number] ####[employer] Operator: NIEVES RUIZ ([phone])[facility])[address] [place] [address] [place] Lymphocytes/100 WBC (Bld) 10.8 % Low 15.0-45.0 [facility] Comment on above: Performed By: #### L [id number] ####[employer] Operator: NIEVES RUIZ ([phone])[facility])[address] [place] [address] MCH (RBC) [Entitic mass] 29.7 pg Normal 26.0-34.0 [facility] Comment on above: Performed By: #### L [id number] ####[employer] Operator: NIEVES RUIZ ([phone])[facility])[address] [place] [address] MCHC 31.9 % Normal 30.5-36.0 [facility] Comment on above: Performed By: #### L [id number] ####[employer] Operator: NIEVES RUIZ ([phone])[facility] ([facility])[address] [place] [address] MCV (RBC) [Entitic vol] 92.9 fL Normal 77.0-99.0 [facility] Comment on above: Performed By: #### L [id number] ####[employer] Operator: NIEVES RUIZ ([id number])[facility] ([facility])[address] [place] [address] Monocytes (Bld) [#/Vol] 0.7 10*3/uL Normal 0.0-0.9 [facility] Comment on above: Performed By: #### L [id number] ####[employer] Operator: NIEVES RUIZ ([phone])[facility])[address] [place] [address] Monocytes/100 WBC (Bld) 8.6 % Normal 5.0-13.0 [facility] Comment on above: Performed By: #### L [id number] ####[employer] Operator: NIEVES RUIZ ([phone])[facility])[address] [place] [address] NEUTROPHILS ABSOLUTE 5.8 10*3/uL Normal 1.8-7.5 [facility] Comment on above: Performed By: #### L [id number] ####[employer] Operator: NIEVES RUIZ ([phone])[facility])[address] [place] [address] Neutrophils/100 WBC (Bld) 76.0 % Normal 38.0-82.0 [facility] Comment on above: Performed By: #### L [id number] ####[employer] Operator: NIEVES RUIZ ([id number])[facility] ([facility])[address] [place] [address] NRBC 0.0 /100 WBCs Normal 0.0-2.0 [facility] Comment on above: Performed By: #### L [id number] ####[employer] Operator: NIEVES RUIZ ([phone])[facility] ([facility])[address] [place] [address] Platelet mean volume (Bld) [Entitic vol] 11.3 fL Normal 9.0-12.7 [facility] Comment on above: Performed By: #### L [id number] ####[employer] Operator: NIEVES RUIZ ([phone])[facility] ([facility])[address] [place] [address] Platelets (Bld) [#/Vol] 291 10*3/uL Normal 140-440 [facility] Comment on above: Performed By: #### L [id number] ####[employer] Operator: NIEVES RUIZ ([phone])[facility] ([facility])[address] [place] [address] RBC (Bld) [#/Vol] 3.37 10*6/uL Low 3.80-5.20 [facility] Comment on above: Performed By: #### L [id number] ####[employer] Operator: NIEVES RUIZ ([id number])[facility] ([facility])[address] [place] [address] WBC (Bld) [#/Vol] 7.6 10*3/uL Normal 3.6-10.7 [facility] Comment on above: Performed By: #### L [id number] ####[employer] Operator: NIEVES RUIZ ([phone])[facility])[address] [place] [address] Laboratory - Chemistry and C hemistry - challengeon 05-19-2025 Glucose [Mass/Vol] 256 mg/dL High 70 - 100 mg/dL [facility] Glucose [Mass/Vol] 152 mg/dL High 70 - 100 mg/dL [facility] Glucose [Mass/Vol] 151 mg/dL High 70 - 100 mg/dL [facility] No Panel Informationon 05-19 Interpretation and review of laboratory results Abnormal [facility] Interpretation and review of laboratory results Abnormal [facility] Interpretation and review of laboratory results Abnormal [facility] Nursing Noteon 05-19-2025 Nursing Note Normal [facility] Progress Noteon 05-19-2025 Progress Note Physician Response Please review the following and provide your response below. Please clarify which of the following accurately describes the patient's condition: Sepsis 2/2 UTI This documentation will become part of the patient's medical record. Normal [facility] Progress Note Normal [facility] Progress Note Normal [facility] Progress Note Normal [facility] [id number] 05-18-2025 [id number] Normal [facility] [id number] Normal [facility] BASIC METABOLIC PANELon 04-23 Anion gap [Moles/Vol] 6 mmol/L Normal 3-13 [facility] Comment on above: Performed By: #### L [id number] ####[employer] Operator: NIEVES RUIZ ([phone])[facility])[address] [place] [address] Calcium [Mass/Vol] 8.3 mg/dL Low 8.8-10.0 [facility] Comment on above: Performed By: #### L [id number] ####[employer] Operator: NIEVES RUIZ ([id number])[facility] ([facility])[address] [place] [address] [place] Chloride [Moles/Vol] 108 mmol/L High 98-107 [facility] Comment on above: Performed By: #### L [id number] ####[employer] Operator: NIEVES RUIZ ([id number])[facility] ([facility])[address] [place] [address] [place] CO2 [Moles/Vol] 21 mmol/L Low 23-31 [facility] Comment on above: Performed By: #### L [id number] ####[employer] Operator: NIEVES RUIZ ([phone])[facility] ([facility])[address] [place] [address] Creatinine [Mass/Vol] 0.65 mg/dL Normal 0.58-1.12 [facility] Comment on above: Performed By: #### L [id number] ####[employer] Operator: NIEVES RUIZ ([phone])[facility])[address] [place] [address] GLOMERULAR FILTRATION RATE ML/MIN/1.73 SQ M.PREDICTED >90.0 Normal >60.0 [facility] Comment on above: Result Comment: Calc ulation based on the Chronic Kidney Disease Epidemiology Collaboration (CKD-EPI) equation refit without adjustment for race Performed By: #### L [id number] ####[employer] Operator: NIEVES RUIZ ([phone])[facility] ([facility])[address] [place] [address] [place] Glucose [Mass/Vol] 136 mg/dL High 82-115 [facility] Comment on above: Performed By: #### L [id number] ####[employer] Operator: NIEVES RUIZ ([phone])[facility])[address] [place] [address] Potassium [Moles/Vol] 4.3 mmol/L Normal 3.5-5.1 [facility] Comment on above: Result Comment: [facility] potassium values may be up to 0.5 mmol/L lower than serum values. Performed By: #### L [id number] ####[employer] Operator: NIEVES RUIZ ([phone])[facility] ([facility])[address] [place] [address] [place] Sodium [Moles/Vol] 135 mmol/L Low 136-145 [facility] Comment on above: Performed By: #### L [id number] ####[employer] Operator: NIEVES RUIZ ([id number])[facility] ([facility])[address] [place] [address] Urea nitrogen [Mass/Vol] 20 mg/dL Normal 9-23 [facility] Comment on above: Performed By: #### L [id number] ####[employer] Operator: NIEVES RUIZ ([phone])[facility] ([address] Basic metabolic 1998 panelon 05-18-2025 Anion gap [Moles/Vol] 6 mmol/L 3 - 13 mmol/L [facility] Calcium [Mass/Vol] 8.3 mg/dL Low 8.8 - 10. 0 mg/dL [facility] Chloride [Moles/Vol] 108 mmol/L High 98 - 10 7 mmol/L [facility] CO2 [Moles/Vol] 21 mmol/L Low 23 - 31 mmol/L [facility] Creatinine [Mass/Vol] 0.65 mg/dL 0.58 - 1.12 mg/dL [facility] GFR/1.73 sq M.predicted (S/P/Bld) [Vol rate/Area] - PINF [facility] Glucose [Mass/Vol] 136 mg/dL High 82 - 115 mg/dL [facility] Interpretation and review of laboratory results Abnormal [facility] Potassium [Moles/Vol] 4.3 mmol/L 3.5 - 5.1 mmol/L [facility] Sodium [Moles/Vol] 135 mmol/L Low 136 - 145 mmol/L [facility] Urea nitrogen [Mass/Vol] 20 mg/dL 9 - 23 mg/dL [facility] CBC W Auto Differential pane l (Bld)on 05-18-2025 Basophils (Bld) [#/Vol] 0.1 10*3/uL 0.0 - 0.2 10*3/uL [facility] Basophils/100 WBC (Bld) 0.8 % 0.0 - 2.0 % [facility] Eosinophils (Bld) [#/Vol] 0.2 10*3/uL 0. 0 - 0.5 10*3/uL [facility] Eosinophils/100 WBC (Bld) 2.1 % 0.0 - 6.0 % [facility] Erythrocyte distribution width (RBC) [Ratio] 13.3 % 11.5 - 15.0 % [facility] Hematocrit (Bld) [Volume fraction] 32.8 % Low 35.0 - 47.0 % [facility] Hemoglobin (Bld) [Mass/Vol] 10.4 g/dL Low 11.7 - 16.0 g/dL [facility] Immature granulocytes (Bld) [#/Vol] 0.1 10*3/uL High NINF - 0.1 10*3/uL [facility] Immature granulocytes/100 WBC (Bld) 1.5 % 0.0 - 2.0 % [facility] Interpretation and review of laboratory results Abnormal [facility] th Lymphocytes (Bld) [#/Vol] 0.7 10*3/uL Low 1. 0 - 4.3 10*3/uL [facility] Lymphocytes/100 WBC (Bld) 8.6 % Low 15 .0 - 45.0 % [facility] MCH (RBC) [Entitic mass] 29.6 pg 26. 0 - 34.0 pg [facility] MCHC (RBC) [Mass/Vol] 31.7 % 30.5 - 36.0 % [facility] MCV (RBC) [Entitic vol] 93.4 fL 77.0 - 99.0 fL [facility] Monocytes (Bld) [#/Vol] 0.5 10*3/uL 0.0 - 0.9 10*3/uL [facility] Monocytes/100 WBC (Bld) 6.9 % 5.0 - 13.0 % [facility] Neutrophils (Bld) [#/Vol] 6.2 10*3/uL 1. 8 - 7.5 10*3/uL [facility] Neutrophils/100 WBC (Bld) 80.1 % 38 .0 - 82.0 % [facility] Nucleated RBC/100 WBC (Bld) [Ratio] 0 % [facility] Platelet mean volume (Bld) [Entitic vol] 11.5 fL 9.0 - 12.7 fL [facility] Platelets (Bld) [#/Vol] 282 10*3/uL 140 - 440 10*3/uL [facility] RBC (Bld) [#/Vol] 3.51 10*6/uL Low 3.80 - 5.2 0 10*6/uL [facility] WBC (Bld) [#/Vol] 7.8 10*3/uL 3.6 - 10.7 10*3/uL [facility] CBC WITH AUTO DIFFERENTIALon 05-18-2025 Basophils (Bld) [#/Vol] 0.1 10*3/uL Normal 0.0-0.2 [facility] Comment on above: Performed By: #### L [id number] ####[employer] Operator: NIEVES RUIZ ([phone])[facility])[address] [place] [address] Basophils/100 WBC (Bld) 0.8 % Normal 0.0-2.0 S [facility] Comment on above: Performed By: #### L [id number] ####[employer] Operator: NIEVES RUIZ ([phone])[facility])[address] [place] [address] Eosinophils (Bld) [#/Vol] 0.2 10*3/uL Normal 0.0-0.5 [facility] Comment on above: Performed By: #### L [id number] ####[employer] Operator: NIEVES RUIZ ([phone])[facility])[address] [place] [address] Eosinophils/100 WBC (Bld) 2.1 % Normal 0.0-6.0 [facility] Comment on above: Performed By: #### L [id number] ####[employer] Operator: NIEVES RUIZ ([phone])[facility])[address] [place] [address] Erythrocyte distribution width (RBC) [Ratio] 13.3 % Normal 11.5-15.0 [facility] Comment on above: Performed By: #### L [id number] ####[employer] Operator: NIEVES RUIZ ([phone])[facility])[address] [place] [address] Hematocrit (Bld) [Volume fraction] 32.8 % Low 35.0-47.0 [facility] Comment on above: Performed By: #### L [id number] ####[employer] Operator: NIEVES RUIZ ([phone])[facility])[address] [place] [address] Hemoglobin (Bld) [Mass/Vol] 10.4 g/dL Low 11.7-16.0 [facility] Comment on above: Performed By: #### L [id number] ####[employer] Operator: NIEVES RUIZ ([phone])[facility] ([facility])[address] [place] [address] IMMATURE GRANS % 1.5 % Normal 0.0-2.0 [facility] Comment on above: Performed By: #### L [id number] ####[employer] Operator: NIEVES RUIZ ([phone])[facility])[address] [place] [address] IMMATURE GRANS ABSOLUTE 0.1 10*3/uL High <0.1 [facility] Comment on above: Performed By: #### L [id number] ####[employer] Operator: NIEVES RUIZ ([phone])[facility])[address] [place] [address] Lymphocytes (Bld) [#/Vol] 0.7 10*3/uL Low 1.0-4.3 [facility] Comment on above: Performed By: #### L [id number] ####[employer] Operator: NIEVES RUIZ ([phone])[facility])[address] [place] [address] Lymphocytes/100 WBC (Bld) 8.6 % Low 15.0-45.0 [facility] Comment on above: Performed By: #### L [id number] ####[employer] Operator: NIEVES RUIZ ([phone])[facility])[address] [place] [address] MCH (RBC) [Entitic mass] 29.6 pg Normal 26.0-34.0 [facility] Comment on above: Performed By: #### L [id number] ####[employer] Operator: NIEVES RUIZ ([phone])[facility])[address] [place] [address] MCHC 31.7 % Normal 30.5-36.0 [facility] Comment on above: Performed By: #### L [id number] ####[employer] Operator: NIEVES RUIZ ([phone])[facility])[address] [place] [address] MCV (RBC) [Entitic vol] 93.4 fL Normal 77.0-99.0 [facility] Comment on above: Performed By: #### L [id number] ####[employer] Operator: NIEVES RUIZ ([phone])[facility] ([facility])[address] [place] [address] Monocytes (Bld) [#/Vol] 0.5 10*3/uL Normal 0.0-0.9 [facility] Comment on above: Performed By: #### L [id number] ####[employer] Operator: NIEVES RUIZ ([phone])[facility] ([facility])[address] [place] [address] Monocytes/100 WBC (Bld) 6.9 % Normal 5.0-13.0 [facility] Comment on above: Performed By: #### L [id number] ####[employer] Operator: NIEVES RUIZ ([phone])[facility] ([facility])[address] [place] [address] NEUTROPHILS ABSOLUTE 6.2 10*3/uL Normal 1.8-7.5 [facility] Comment on above: Performed By: #### L [id number] ####[employer] Operator: NIEVES RUIZ ([phone])[facility] ([facility])[address] [place] [address] Neutrophils/100 WBC (Bld) 80.1 % Normal 38.0-82.0 [facility] Comment on above: Performed By: #### L [id number] ####[employer] Operator: NIEVES RUIZ ([phone])[facility] ([facility])[address] [place] [address] NRBC 0.0 /100 WBCs Normal 0.0-2.0 [facility] Comment on above: Performed By: #### L [id number] ####[employer] Operator: NIEVES RUIZ ([id number])[facility] ([facility])[address] [place] [address] Platelet mean volume (Bld) [Entitic vol] 11.5 fL Normal 9.0-12.7 [facility] Comment on above: Performed By: #### L [id number] ####[employer] Operator: NIEVES RUIZ ([phone])[facility] ([facility])[address] [place] [address] Platelets (Bld) [#/Vol] 282 10*3/uL Normal 140-440 [facility] Comment on above: Performed By: #### L [id number] ####[employer] Operator: NIEVES RUIZ ([phone])[facility] ([facility])[address] [place] [address] RBC (Bld) [#/Vol] 3.51 10*6/uL Low 3.80-5.20 [facility] Comment on above: Performed By: #### L [id number] ####[employer] Operator: NIEVES RUIZ ([phone])[facility] ([facility])[address] [place] [address] WBC (Bld) [#/Vol] 7.8 10*3/uL Normal 3.6-10.7 [facility] Comment on above: Performed By: #### L [id number] ####[employer] Operator: NIEVES RUIZ ([phone])[facility] ([facility])[address] [place] [address] Laboratory - Chemistry and C hemistry - challengeon 05-18-2025 Glucose [Mass/Vol] 213 mg/dL High 70 - 100 mg/dL [facility] Glucose [Mass/Vol] 122 mg/dL High 70 - 100 mg/dL [facility] Glucose [Mass/Vol] 155 mg/dL High 70 - 100 mg/dL [facility] Glucose [Mass/Vol] 157 mg/dL High 70 - 100 mg/dL [facility] No Panel Informationon 05-18 Interpretation and review of laboratory results Abnormal [facility] Interpretation and review of laboratory results Abnormal [facility] Interpretation and review of laboratory results Abnormal [facility] Interpretation and review of laboratory results Abnormal [facility] Progress Noteon 05-18-2025 Progress Note Normal [facility] BASIC METABOLIC PANELon 10-2 Anion gap [Moles/Vol] 6 mmol/L Normal 3-13 [facility] Comment on above: Performed By: #### L [id number] ####[employer] Operator: NIEVES RUIZ ([phone])[facility] ([facility])[address] [place] [address] Calcium [Mass/Vol] 7.9 mg/dL Low 8.8-10.0 [facility] Comment on above: Performed By: #### L [id number] ####[employer] Operator: NIEVES RUIZ ([phone])[facility] ([facility])[address] [place] [address] Chloride [Moles/Vol] 109 mmol/L High 98-107 [facility] Comment on above: Performed By: #### L [id number] ####[employer] Operator: NIEVES RUIZ ([phone])[facility] ([facility]IC[facility])[address] [place] [address] CO2 [Moles/Vol] 20 mmol/L Low 23-31 [facility] Comment on above: Performed By: #### L [id number] ####Numerical Control Drill Press Operator: NIEVES RUIZ ([phone])[facility] ([facility])[address] [place] [address] Creatinine [Mass/Vol] 0.64 mg/dL Normal 0.58-1.12 [facility] Comment on above: Performed By: #### L [id number] ####Numerical Control Drill Press Operator: NIEVES RUIZ ([phone])[facility] ([facility])[address] [place] [address] GLOMERULAR FILTRATION RATE ML/MIN/1.73 SQ M.PREDICTED >90.0 Normal >60.0 [facility] Comment on above: Result Comment: Calc ulation based on the Chronic Kidney Disease Epidemiology Collaboration (CKD-EPI) equation refit without adjustment for race Performed By: #### L [id number] ####Numerical Control Drill Press Operator: NIEVES RUIZ ([phone])[facility] ([facility])[address] [place] [address] [place] Glucose [Mass/Vol] 127 mg/dL High 82-115 [facility] Comment on above: Performed By: #### L [id number] ####Numerical Control Drill Press Operator: NIEVES RUIZ ([phone])[facility])[address] [place] [address] Potassium [Moles/Vol] 4.3 mmol/L Normal 3.5-5.1 [facility] Comment on above: Result Comment: [facility] potassium values may be up to 0.5 mmol/L lower than serum values. Performed By: #### L [id number] ####Numerical Control Drill Press Operator: NIEVES RUIZ ([phone])[facility] ([facility])[address] [place] [address] Sodium [Moles/Vol] 135 mmol/L Low 136-145 [facility] Comment on above: Performed By: #### L [id number] ####Numerical Control Drill Press Operator: NIEVES RUIZ ([phone])[facility] ([facility])[address] [place] [address] Urea nitrogen [Mass/Vol] 21 mg/dL Normal 9-23 [facility] Comment on above: Performed By: #### L [id number] ####Numerical Control Drill Press Operator: NIEVES RUIZ ([phone])[facility])[address] [place] [address] Basic metabolic 1998 panelon 05-17-2025 Anion gap [Moles/Vol] 6 mmol/L 3 - 13 mmol/L [facility] Calcium [Mass/Vol] 7.9 mg/dL Low 8.8 - 10. 0 mg/dL [facility] Chloride [Moles/Vol] 109 mmol/L High 98 - 10 7 mmol/L [facility] CO2 [Moles/Vol] 20 mmol/L Low 23 - 31 mmol/L [facility] Creatinine [Mass/Vol] 0.64 mg/dL 0.58 - 1.12 mg/dL [facility] GFR/1.73 sq M.predicted (S/P/Bld) [Vol rate/Area] - PINF [facility] Glucose [Mass/Vol] 127 mg/dL High 82 - 115 mg/dL [facility] Interpretation and review of laboratory results Abnormal [facility] Potassium [Moles/Vol] 4.3 mmol/L 3.5 - 5.1 mmol/L [facility] Sodium [Moles/Vol] 135 mmol/L Low 136 - 145 mmol/L [facility] Urea nitrogen [Mass/Vol] 21 mg/dL 9 - 23 mg/dL [facility] CBC W Auto Differential pane l (Bld)on 05-17-2025 Basophils (Bld) [#/Vol] 0 10*3/uL 0.0 - 0.2 10*3/uL [facility] Basophils/100 WBC (Bld) 0.5 % 0.0 - 2.0 % [facility] Eosinophils (Bld) [#/Vol] 0.2 10*3/uL 0. 0 - 0.5 10*3/uL [facility] Eosinophils/100 WBC (Bld) 2.2 % 0.0 - 6.0 % [facility] Erythrocyte distribution width (RBC) [Ratio] 13.3 % 11.5 - 15.0 % [facility] Hematocrit (Bld) [Volume fraction] 31.7 % Low 35.0 - 47.0 % [facility] Hemoglobin (Bld) [Mass/Vol] 10.3 g/dL Low 11.7 - 16.0 g/dL [facility] Immature granulocytes (Bld) [#/Vol] 0.1 10*3/uL High NINF - 0.1 10*3/uL [facility] Immature granulocytes/100 WBC (Bld) 1.2 % 0.0 - 2.0 % [facility] Interpretation and review of laboratory results Abnormal [facility] th Lymphocytes (Bld) [#/Vol] 0.9 10*3/uL Low 1. 0 - 4.3 10*3/uL [facility] Lymphocytes/100 WBC (Bld) 10.9 % Low 15 .0 - 45.0 % [facility] MCH (RBC) [Entitic mass] 30 pg 26. 0 - 34.0 pg [facility] MCHC (RBC) [Mass/Vol] 32.5 % 30.5 - 36.0 % [facility] MCV (RBC) [Entitic vol] 92.4 fL 77.0 - 99.0 fL [facility] Monocytes (Bld) [#/Vol] 0.7 10*3/uL 0.0 - 0.9 10*3/uL [facility] Monocytes/100 WBC (Bld) 8.1 % 5.0 - 13.0 % [facility] Neutrophils (Bld) [#/Vol] 6.4 10*3/uL 1. 8 - 7.5 10*3/uL [facility] Neutrophils/100 WBC (Bld) 77.1 % 38 .0 - 82.0 % [facility] Nucleated RBC/100 WBC (Bld) [Ratio] 0 % [facility] Platelet mean volume (Bld) [Entitic vol] 11.1 fL 9.0 - 12.7 fL [facility] Platelets (Bld) [#/Vol] 293 10*3/uL 140 - 440 10*3/uL [facility] RBC (Bld) [#/Vol] 3.43 10*6/uL Low 3.80 - 5.2 0 10*6/uL [facility] WBC (Bld) [#/Vol] 8.3 10*3/uL 3.6 - 10.7 10*3/uL [facility] CBC WITH AUTO DIFFERENTIALon 05-17-2025 Basophils (Bld) [#/Vol] 0.0 10*3/uL Normal 0.0-0.2 [facility] Comment on above: Performed By: #### L [id number] ####Numerical Control Drill Press Operator: NIEVES RUIZ ([phone])[facility])[address] [place] [address] Basophils/100 WBC (Bld) 0.5 % Normal 0.0-2.0 [facility] Comment on above: Performed By: #### L [id number] ####Numerical Control Drill Press Operator: NIEVES RUIZ ([phone])[facility] ([facility])[address] [place] [address] [place] Eosinophils (Bld) [#/Vol] 0.2 10*3/uL Normal 0.0-0.5 [facility] Comment on above: Performed By: #### L [id number] ####Numerical Control [employer] Press Operator: NIEVES RUIZ ([phone])[facility])[address] [place] [address] [place] Eosinophils/100 WBC (Bld) 2.2 % Normal 0.0-6.0 [facility] Comment on above: Performed By: #### L [id number] ####Numer[employer] Control [employer] Operator: NIEVES RUIZ ([phone])[address] Erythrocyte distribution width (RBC) [Ratio] 13.3 % Normal 11.5-15.0 [facility] Comment on above: Performed By: #### L [id number] ####Numer[employer] Control [employer] Press Operator: NIEVES RUIZ ([phone])[address] Hematocrit (Bld) [Volume fraction] 31.7 % Low 35.0-47.0 [facility] Comment on above: Performed By: #### L [id number] ####[employer] Operator: NIEVES RUIZ ([phone])[address] Hemoglobin (Bld) [Mass/Vol] 10.3 g/dL Low 11.7-16.0 [facility] Comment on above: Performed By: #### L [id number] ####Numer[employer] Control [employer] Operator: NIEVES RUIZ ([phone])[address] IMMATURE GRANS % 1.2 % Normal 0.0-2.0 [facility] Comment on above: Performed By: #### L [id number] ####Numerical Control Drill Press Operator: NIEVES RUIZ ([phone])[address] IMMATURE GRANS ABSOLUTE 0.1 10*3/uL High <0.1 [facility] Comment on above: Performed By: #### L [id number] ####Numer[employer] Control [employer] Operator: NIEVES RUIZ ([phone])[address] Lymphocytes (Bld) [#/Vol] 0.9 10*3/uL Low 1.0-4.3 [facility] Comment on above: Performed By: #### L [id number] ####Numerical Control Drill Press Operator: NIEVES RUIZ ([phone])[facility])[address] [place] [address] Lymphocytes/100 WBC (Bld) 10.9 % Low 15.0-45.0 [facility] Comment on above: Performed By: #### L [id number] ####Numerical Control [employer] Press Operator: NIEVES RUIZ ([phone])[facility])[address] [place] [address] MCH (RBC) [Entitic mass] 30.0 pg Normal 26.0-34.0 [facility] Comment on above: Performed By: #### L [id number] ####Numerical Control Drill Press Operator: NIEVES RUIZ ([phone])[facility])[address] [place] [address] MCHC 32.5 % Normal 30.5-36.0 [facility] Comment on above: Performed By: #### L [id number] ####Numerical Control Dr[employer] Press Operator: NIEVES RUIZ ([phone])[facility] ([facility])[address] [place] [address] MCV (RBC) [Entitic vol] 92.4 fL Normal 77.0-99.0 [facility] Comment on above: Performed By: #### L [id number] ####Numerical Control Drill Press Operator: NIEVES RUIZ ([phone])[facility])[address] [place] [address] Monocytes (Bld) [#/Vol] 0.7 10*3/uL Normal 0.0-0.9 [facility] Comment on above: Performed By: #### L [id number] ####Numerical Control Drill Press Operator: NIEVES RUIZ ([phone])[facility])[address] [place] [address] Monocytes/100 WBC (Bld) 8.1 % Normal 5.0-13.0 [facility] Comment on above: Performed By: #### L [id number] ####Numerical Control Drill Press Operator: NIEVES RUIZ ([phone])[facility])[address] [place] [address] NEUTROPHILS ABSOLUTE 6.4 10*3/uL Normal 1.8-7.5 [facility] Comment on above: Performed By: #### L [id number] ####Numerical Control Drill Press Operator: NIEVES RUIZ ([phone])[facility] ([facility])[address] [place] [address] Neutrophils/100 WBC (Bld) 77.1 % Normal 38.0-82.0 [facility] Comment on above: Performed By: #### L [id number] ####Numerical Control Drill Press Operator: NIEVES RUIZ ([phone])[facility] ([facility])[address] [place] [address] NRBC 0.0 /100 WBCs Normal 0.0-2.0 [facility] Comment on above: Performed By: #### L [id number] ####Numerical Control Drill Press Operator: NIEVES RUIZ ([phone])[facility] ([facility])[address] [place] [address] Platelet mean volume (Bld) [Entitic vol] 11.1 fL Normal 9.0-12.7 [facility] Comment on above: Performed By: #### L [id number] ####Numerical Control Dr[employer] Press Operator: NIEVES RUIZ ([phone])[facility] ([facility])[address] [place] [address] Platelets (Bld) [#/Vol] 293 10*3/uL Normal 140-440 [facility] Comment on above: Performed By: #### L [id number] ####Numerical Control Drill Press Operator: NIEVES RUIZ ([phone])[facility] ([facility])[address] [place] [address] [place] RBC (Bld) [#/Vol] 3.43 10*6/uL Low 3.80-5.20 [facility] Comment on above: Performed By: #### L [id number] ####Numerical Control [employer] Press Operator: NIEVES RUIZ ([phone])[facility] ([facility])[address] [place] [address] [place] WBC (Bld) [#/Vol] 8.3 10*3/uL Normal 3.6-10.7 [facility] Comment on above: Performed By: #### L [id number] ####Numerical Control Drill Press Operator: NIEVES RUIZ ([phone])[facility])[address] [place] [address] Laboratory - Chemistry and C hemistry - challengeon 05-17-2025 Glucose [Mass/Vol] 184 mg/dL High 70 - 100 mg/dL [facility] Glucose [Mass/Vol] 203 mg/dL High 70 - 100 mg/dL [facility] Glucose [Mass/Vol] 169 mg/dL High 70 - 100 mg/dL [facility] Glucose [Mass/Vol] 126 mg/dL High 70 - 100 mg/dL [facility] No Panel Informationon 05-17 Interpretation and review of laboratory results Abnormal [facility] Interpretation and review of laboratory results Abnormal [facility] Interpretation and review of laboratory results Abnormal [facility] Interpretation and review of laboratory results Abnormal [facility] Progress Noteon 05-17-2025 Progress Note Normal [facility] Progress Note Normal [facility] Progress Note Normal [facility] BASIC METABOLIC PANELon 04-23 Anion gap [Moles/Vol] 6 mmol/L Normal 3-13 [facility] Comment on above: Performed By: #### L [id number] ####Numerical Control Drill Press Operator: NIEVES RUIZ ([phone])[facility] ([facility])[address] [place] [address] Calcium [Mass/Vol] 8.2 mg/dL Low 8.8-10.0 [facility] Comment on above: Performed By: #### L [id number] ####Numerical Control Drill Press Operator: NIEVES RUIZ ([phone])[facility])[address] [place] [address] Chloride [Moles/Vol] 110 mmol/L High 98-107 [facility] Comment on above: Performed By: #### L [id number] ####Numerical Control Drill Press Operator: NIEVES RUIZ ([phone])[facility])[address] [place] [address] CO2 [Moles/Vol] 21 mmol/L Low 23-31 [facility] Comment on above: Performed By: #### L [id number] ####Numerical Control Drill Press Operator: NIEVES RUIZ ([phone])[facility] ([facility])[address] [place] [address] Creatinine [Mass/Vol] 0.70 mg/dL Normal 0.58-1.12 [facility] Comment on above: Performed By: #### L [id number] ####Numerical Control Dr[employer] Press Operator: NIEVES RUIZ ([phone])[facility] ([facility])[address] [place] [address] GLOMERULAR FILTRATION RATE ML/MIN/1.73 SQ M.PREDICTED >90.0 Normal >60.0 [facility] Comment on above: Result Comment: Calc ulation based on the Chronic Kidney Disease Epidemiology Collaboration (CKD-EPI) equation refit without adjustment for race Performed By: #### L [id number] ####Numerical Control Drill Press Operator: NIEVES RUIZ ([phone])[facility] ([facility])[address] [place] [address] Glucose [Mass/Vol] 98 mg/dL Normal 82-115 [facility] Comment on above: Performed By: #### L [id number] ####Numerical Control Dr[employer] Press Operator: NIEVES RUIZ ([phone])[facility] ([facility])[address] [place] [address] Potassium [Moles/Vol] 3.8 mmol/L Normal 3.5-5.1 [facility] Comment on above: Result Comment: [facility] potassium values may be up to 0.5 mmol/L lower than serum values. Performed By: #### L [id number] ####Numerical Control Drill Press Operator: NIEVES RUIZ ([phone])[facility] ([facility])[address] [place] [address] [place] Sodium [Moles/Vol] 137 mmol/L Normal 136-145 [facility] Comment on above: Performed By: #### L [id number] ####Numerical Control Drill Press Operator: NIEVES RUIZ ([phone])[facility] ([facility])[address] Urea nitrogen [Mass/Vol] 17 mg/dL Normal - [facility] [employer] [facility] Comment on above: Performed By: #### L [id number] ####Numerical Control Drill Press Operator: NIEVES RUIZ ([phone])[facility] ([facility])[address] [place] [address] Bacteria identified Cx Nom ( Bld)on 05-16-2025 Interpretation and review of laboratory results Normal [facility] Basic metabolic 1998 panelon 05-16-2025 Anion gap [Moles/Vol] 6 mmol/L 3 - 13 mmol/L [facility] Calcium [Mass/Vol] 8.2 mg/dL Low 8.8 - 10. 0 mg/dL [facility] Chloride [Moles/Vol] 110 mmol/L High 98 - 10 7 mmol/L [facility] CO2 [Moles/Vol] 21 mmol/L Low 23 - 31 mmol/L [facility] Creatinine [Mass/Vol] 0.7 mg/dL 0.58 - 1.12 mg/dL [facility] GFR/1.73 sq M.predicted (S/P/Bld) [Vol rate/Area] - PINF [facility] Glucose [Mass/Vol] 98 mg/dL 82 - 115 mg/dL [facility] Interpretation and review of laboratory results Abnormal [facility] Potassium [Moles/Vol] 3.8 mmol/L 3.5 - 5.1 mmol/L [facility] Sodium [Moles/Vol] 137 mmol/L 136 - 145 mmol/L [facility] Urea nitrogen [Mass/Vol] 17 mg/dL 9 - 23 mg/dL [facility] CBC W Auto Differential pane l (Bld)on 05-16-2025 Basophils (Bld) [#/Vol] 0.1 10*3/uL 0.0 - 0.2 10*3/uL [facility] Basophils/100 WBC (Bld) 0.6 % 0.0 - 2.0 % [facility] Eosinophils (Bld) [#/Vol] 0.2 10*3/uL 0. 0 - 0.5 10*3/uL [facility] Eosinophils/100 WBC (Bld) 2.5 % 0.0 - 6.0 % [facility] Erythrocyte distribution width (RBC) [Ratio] 13.2 % 11.5 - 15.0 % [facility] Hematocrit (Bld) [Volume fraction] 33.5 % Low 35.0 - 47.0 % [facility] Hemoglobin (Bld) [Mass/Vol] 10.6 g/dL Low 11.7 - 16.0 g/dL [facility] Immature granulocytes (Bld) [#/Vol] 0.1 10*3/uL High NINF - 0.1 10*3/uL [facility] Immature granulocytes/100 WBC (Bld) 1.6 % 0.0 - 2.0 % [facility] Interpretation and review of laboratory results Abnormal [facility] th Lymphocytes (Bld) [#/Vol] 0.9 10*3/uL Low 1. 0 - 4.3 10*3/uL [facility] Lymphocytes/100 WBC (Bld) 10.6 % Low 15 .0 - 45.0 % [facility] MCH (RBC) [Entitic mass] 29.5 pg 26. 0 - 34.0 pg [facility] MCHC (RBC) [Mass/Vol] 31.6 % 30.5 - 36.0 % [facility] MCV (RBC) [Entitic vol] 93.3 fL 77.0 - 99.0 fL [facility] Monocytes (Bld) [#/Vol] 0.5 10*3/uL 0.0 - 0.9 10*3/uL [facility] Monocytes/100 WBC (Bld) 6 % 5.0 - 13.0 % [facility] Neutrophils (Bld) [#/Vol] 6.6 10*3/uL 1. 8 - 7.5 10*3/uL [facility] Neutrophils/100 WBC (Bld) 78.7 % 38 .0 - 82.0 % [facility] Nucleated RBC/100 WBC (Bld) [Ratio] 0 % [facility] Platelet mean volume (Bld) [Entitic vol] 11.1 fL 9.0 - 12.7 fL [facility] Platelets (Bld) [#/Vol] 305 10*3/uL 140 - 440 10*3/uL [facility] RBC (Bld) [#/Vol] 3.59 10*6/uL Low 3.80 - 5.2 0 10*6/uL [facility] WBC (Bld) [#/Vol] 8.4 10*3/uL 3.6 - 10.7 10*3/uL [facility] CBC WITH AUTO DIFFERENTIALon 05-16-2025 Basophils (Bld) [#/Vol] 0.1 10*3/uL Normal 0.0-0.2 [facility] Comment on above: Performed By: #### L [id number] ####Numer[employer] Operator: NIEVES RUIZ ([phone])[facility])[address] [place] [address] Basophils/100 WBC (Bld) 0.6 % Normal 0.0-2.0 [facility] Comment on above: Performed By: #### L [id number] ####Numer[employer] Operator: NIEVES RUIZ ([phone])[facility])[address] [place] [address] Eosinophils (Bld) [#/Vol] 0.2 10*3/uL Normal 0.0-0.5 [facility] Comment on above: Performed By: #### L [id number] ####[employer] Operator: NIEVES RUIZ ([phone])[facility])[address] [place] [address] Eosinophils/100 WBC (Bld) 2.5 % Normal 0.0-6.0 [facility] Comment on above: Performed By: #### L [id number] ####[employer] Operator: NIEVES RUIZ ([phone])[facility])[address] [place] [address] Erythrocyte distribution width (RBC) [Ratio] 13.2 % Normal 11.5-15.0 [facility] Comment on above: Performed By: #### L [id number] ####[employer] Operator: NIEVES RUIZ ([phone])[facility])[address] [place] [address] Hematocrit (Bld) [Volume fraction] 33.5 % Low 35.0-47.0 [facility] Comment on above: Performed By: #### L [id number] ####[employer] Operator: NIEVES [phone])[facility])[address] [place] [address] Hemoglobin (Bld) [Mass/Vol] 10.6 g/dL Low 11.7-16.0 [facility] Comment on above: Performed By: #### L [id number] ####[employer] Operator: NIEVES RUIZ ([phone])[facility])[address] [place] [address] IMMATURE GRANS % 1.6 % Normal 0.0-2.0 [facility] Comment on above: Performed By: #### L [id number] ####[employer] Operator: NIEVES RUIZ ([phone])[facility])[address] [place] [address] IMMATURE GRANS ABSOLUTE 0.1 10*3/uL High <0.1 [facility] Comment on above: Performed By: #### L [id number] ####[employer] Operator: NIEVES RUIZ ([phone])[facility])[address] [place] [address] Lymphocytes (Bld) [#/Vol] 0.9 10*3/uL Low 1.0-4.3 [facility] Comment on above: Performed By: #### L [id number] ####[employer] Operator: NIEVES RUIZ ([phone])[facility])[address] [place] [address] Lymphocytes/100 WBC (Bld) 10.6 % Low 15.0-45.0 [facility] Comment on above: Performed By: #### L [id number] ####[employer] Operator: NIEVES RUIZ ([phone])[facility])[address] [place] [address] MCH (RBC) [Entitic mass] 29.5 pg Normal 26.0-34.0 [facility] Comment on above: Performed By: #### L [id number] ####[employer] Operator: NIEVES RUIZ ([phone])[facility])[address] [place] [address] MCHC 31.6 % Normal 30.5-36.0 [facility] Comment on above: Performed By: #### L [id number] ####[employer] Operator: NIEVES RUIZ ([phone])[facility])[address] [place] [address] MCV (RBC) [Entitic vol] 93.3 fL Normal 77.0-99.0 [facility] Comment on above: Performed By: #### L [id number] ####Numer[employer] Control [employer] Operator: NIEVES RUIZ ([phone])[facility] ([facility])[address] [place] [address] Monocytes (Bld) [#/Vol] 0.5 10*3/uL Normal 0.0-0.9 [facility] Comment on above: Performed By: #### L [id number] ####[employer] Operator: NIEVES RUIZ ([phone])[facility])[address] [place] [address] Monocytes/100 WBC (Bld) 6.0 % Normal 5.0-13.0 [facility] Comment on above: Performed By: #### L [id number] ####[employer] Operator: NIEVES RUIZ ([phone])[facility])[address] [place] [address] NEUTROPHILS ABSOLUTE 6.6 10*3/uL Normal 1.8-7.5 [facility] Comment on above: Performed By: #### L [id number] ####[employer] Operator: NIEVES RUIZ ([phone])[facility])[address] [place] [address] Neutrophils/100 WBC (Bld) 78.7 % Normal 38.0-82.0 [facility] Comment on above: Performed By: #### L [id number] ####[employer] Operator: NIEVES RUIZ ([phone])[facility])[address] [place] [address] NRBC 0.0 /100 WBCs Normal 0.0-2.0 [facility] Comment on above: Performed By: #### L [id number] ####Numerical Control Drill Press Operator: NIEVES RUIZ ([phone])[facility] ([facility])[address] [place] [address] Platelet mean volume (Bld) [Entitic vol] 11.1 fL Normal 9.0-12.7 [facility] Comment on above: Performed By: #### L [id number] ####Numerical Control Drill Press Operator: NIEVES RUIZ ([phone])[facility] ([facility])[address] [place] [address] Platelets (Bld) [#/Vol] 305 10*3/uL Normal 140-440 [facility] Comment on above: Performed By: #### L [id number] ####Numerical Control [employer] Operator: NIEVES RUIZ ([phone])[facility] ([facility])[address] [place] [address] RBC (Bld) [#/Vol] 3.59 10*6/uL Low 3.80-5.20 [facility] Comment on above: Performed By: #### L [id number] ####Numerical Control [employer] Operator: NIEVES RUIZ ([id number])[facility] ([facility])[address] [place] [address] WBC (Bld) [#/Vol] 8.4 10*3/uL Normal 3.6-10.7 [facility] Comment on above: Performed By: #### L [id number] ####Numerical Control Drill Press Operator: NIEVES RUIZ ([phone])[facility] ([facility])[address] [place] [address] Consulton 05-16-2025 Consult Normal [facility] - Chemistry and C hemistry - challengeon 05-16-2025 Glucose [Mass/Vol] 190 mg/dL High 70 - 100 mg/dL [facility] Glucose [Mass/Vol] 209 mg/dL High 70 - 100 mg/dL [facility] Glucose [Mass/Vol] 173 mg/dL High 70 - 100 mg/dL [facility] Glucose [Mass/Vol] 123 mg/dL High 70 - 100 mg/dL [facility] - Microbiology an d Antimicrobial susceptibilityon 05-16-2025 Bacteria identified Cx Nom (Bld) No growth at 5 days [facility] No Panel Informationon 05-16 Interpretation and review of laboratory results Abnormal [facility] Interpretation and review of laboratory results Abnormal [facility] Interpretation and review of laboratory results Abnormal [facility] Interpretation and review of laboratory results Abnormal [facility] Progress Noteon 05-16-2025 Progress Note Normal [facility] [id number] 05-15-2025 [id number] Normal [facility] BASIC METABOLIC PANELon 04-23 Anion gap [Moles/Vol] 4 mmol/L Normal 3-13 [facility] Comment on above: Performed By: #### L [id number] ####Numerical [employer] Press Operator: NIEVES RUIZ ([phone])[facility] ([facility])[address] [place] [address] Calcium [Mass/Vol] 8.3 mg/dL Low 8.8-10.0 [facility] Comment on above: Performed By: #### L AB15 ####[employer] Operator: NIEVES RUIZ ([phone])[facility] ([facility])[address] [place] [address] Chloride [Moles/Vol] 111 mmol/L High 98-107 [facility] Comment on above: Performed By: #### L AB15 ####[employer] Operator: NIEVES RUIZ ([phone])[facility] ([facility])[address] [place] [address] [place] CO2 [Moles/Vol] 22 mmol/L Low 23-31 [facility] Comment on above: Performed By: #### L AB15 ####Numer[employer] Operator: NIEVES RUIZ ([phone])[facility] ([facility])[address] [place] [address] Creatinine [Mass/Vol] 0.66 mg/dL Normal 0.58-1.12 [facility] Comment on above: Performed By: #### L AB15 ####[employer] Press Operator: NIEVES [phone])[facility])[address] [place] [address] GLOMERULAR FILTRATION RATE ML/MIN/1.73 SQ M.PREDICTED >90.0 Normal >60.0 [facility] Comment on above: Result Comment: Calc ulation based on the Chronic Kidney Disease Epidemiology Collaboration (CKD-EPI) equation refit without adjustment for race Performed By: #### L AB15 ####Numer[employer] Control Dr[employer] Press Operator: NIEVES RUIZ ([phone])[facility])[address] [place] [address] Glucose [Mass/Vol] 74 mg/dL Low 82-115 [facility] Comment on above: Performed By: #### L AB15 ####[employer] Operator: NIEVES RUIZ ([phone])[address] Potassium [Moles/Vol] 3.6 mmol/L Normal 3.5-5.1 [facility] Comment on above: Result Comment: [facility] potassium values may be up to 0.5 mmol/L lower than serum values. Performed By: #### L AB15 ####Numer[employer] Control [employer] Press Operator: NIEVES RUIZ ([phone])[facility])[address] [place] [address] Sodium [Moles/Vol] 137 mmol/L Normal 136-145 [facility] Comment on above: Performed By: #### L AB15 ####[employer] Press Operator: NIEVES RUIZ ([phone])[address] Urea nitrogen [Mass/Vol] 19 mg/dL Normal 9-23 [facility] Comment on above: Performed By: #### L AB15 ####[employer] Operator: NIEVES RUIZ ([phone])[address] Basic metabolic 1998 panelon 05-15-2025 Anion gap [Moles/Vol] 4 mmol/L 3 - 13 mmol/L [facility] Calcium [Mass/Vol] 8.3 mg/dL Low 8.8 - 10. 0 mg/dL [facility] Chloride [Moles/Vol] 111 mmol/L High 98 - 10 7 mmol/L [facility] CO2 [Moles/Vol] 22 mmol/L Low 23 - 31 mmol/L [facility] Creatinine [Mass/Vol] 0.66 mg/dL 0.58 - 1.12 mg/dL [facility] GFR/1.73 sq M.predicted (S/P/Bld) [Vol rate/Area] - PINF [facility] Glucose [Mass/Vol] 74 mg/dL Low 82 - 115 mg/dL [facility] Interpretation and review of laboratory results Abnormal [facility] Potassium [Moles/Vol] 3.6 mmol/L 3.5 - 5.1 mmol/L [facility] Sodium [Moles/Vol] 137 mmol/L 136 - 145 mmol/L [facility] Urea nitrogen [Mass/Vol] 19 mg/dL 9 - 23 mg/dL [facility] CBC W Auto Differential pane l (Bld)on 05-15-2025 Basophils (Bld) [#/Vol] 0 10*3/uL 0.0 - 0.2 10*3/uL [facility] Basophils/100 WBC (Bld) 0.5 % 0.0 - 2.0 % [facility] Eosinophils (Bld) [#/Vol] 0.2 10*3/uL 0. 0 - 0.5 10*3/uL [facility] Eosinophils/100 WBC (Bld) 2.4 % 0.0 - 6.0 % [facility] Erythrocyte distribution width (RBC) [Ratio] 13.1 % 11.5 - 15.0 % [facility] Hematocrit (Bld) [Volume fraction] 33.2 % Low 35.0 - 47.0 % [facility] Hemoglobin (Bld) [Mass/Vol] 10.6 g/dL Low 11.7 - 16.0 g/dL [facility] Immature granulocytes (Bld) [#/Vol] 0.1 10*3/uL High NINF - 0.1 10*3/uL [facility] Immature granulocytes/100 WBC (Bld) 1 % 0.0 - 2.0 % [facility] Interpretation and review of laboratory results Abnormal [facility] th Lymphocytes (Bld) [#/Vol] 0.8 10*3/uL Low 1. 0 - 4.3 10*3/uL [facility] Lymphocytes/100 WBC (Bld) 9.3 % Low 15 .0 - 45.0 % [facility] MCH (RBC) [Entitic mass] 29.8 pg 26. 0 - 34.0 pg [facility] MCHC (RBC) [Mass/Vol] 31.9 % 30.5 - 36.0 % [facility] MCV (RBC) [Entitic vol] 93.3 fL 77.0 - 99.0 fL [facility] Monocytes (Bld) [#/Vol] 0.5 10*3/uL 0.0 - 0.9 10*3/uL [facility] Monocytes/100 WBC (Bld) 6 % 5.0 - 13.0 % [facility] Neutrophils (Bld) [#/Vol] 6.6 10*3/uL 1. 8 - 7.5 10*3/uL [facility] Neutrophils/100 WBC (Bld) 80.8 % 38 .0 - 82.0 % [facility] Nucleated RBC/100 WBC (Bld) [Ratio] 0 % [facility] Platelet mean volume (Bld) [Entitic vol] 11.6 fL 9.0 - 12.7 fL [facility] Platelets (Bld) [#/Vol] 323 10*3/uL 140 - 440 10*3/uL [facility] RBC (Bld) [#/Vol] 3.56 10*6/uL Low 3.80 - 5.2 0 10*6/uL [facility] WBC (Bld) [#/Vol] 8.2 10*3/uL 3.6 - 10.7 10*3/uL [facility] CBC WITH AUTO DIFFERENTIALon 05-15-2025 Basophils (Bld) [#/Vol] 0.0 10*3/uL Normal 0.0-0.2 [facility] Comment on above: Performed By: #### L [id number] ####[employer] Operator: NIEVES RUIZ ([phone])[facility] ([address] Basophils/100 WBC (Bld) 0.5 % Normal 0.0-2.0 [facility] Comment on above: Performed By: #### L [id number] ####Numer[employer] Operator: NIEVES RUIZ ([phone])[facility])[address] [place] [address] Eosinophils (Bld) [#/Vol] 0.2 10*3/uL Normal 0.0-0.5 [facility] Comment on above: Performed By: #### L [id number] ####[employer] Operator: NIEVES RUIZ ([phone])[facility])[address] [place] [address] Eosinophils/100 WBC (Bld) 2.4 % Normal 0.0-6.0 [facility] Comment on above: Performed By: #### L [id number] ####[employer] Operator: NIEVES RUIZ ([phone])[address] Erythrocyte distribution width (RBC) [Ratio] 13.1 % Normal 11.5-15.0 [facility] Comment on above: Performed By: #### L [id number] ####[employer] Operator: NIEVES RUIZ ([phone])[facility])[address] [place] [address] Hematocrit (Bld) [Volume fraction] 33.2 % Low 35.0-47.0 [facility] Comment on above: Performed By: #### L [id number] ####[employer] Operator: NIEVES RUIZ ([phone])[address] Hemoglobin (Bld) [Mass/Vol] 10.6 g/dL Low 11.7-16.0 [facility] Comment on above: Performed By: #### L [id number] ####[employer] Operator: NIEVES RUIZ ([phone])[facility])[address] [place] [address] IMMATURE GRANS % 1.0 % Normal 0.0-2.0 [facility] Comment on above: Performed By: #### L [id number] ####[employer] Operator: NIEVES RUIZ ([phone])[address] IMMATURE GRANS ABSOLUTE 0.1 10*3/uL High <0.1 [facility] Comment on above: Performed By: #### L [id number] ####[employer] Operator: NIEVES RUIZ ([phone])[facility])[address] [place] [address] Lymphocytes (Bld) [#/Vol] 0.8 10*3/uL Low 1.0-4.3 [facility] Comment on above: Performed By: #### L [id number] ####[employer] Operator: NIEVES RUIZ ([phone])[facility])[address] [place] [address] Lymphocytes/100 WBC (Bld) 9.3 % Low 15.0-45.0 [facility] Comment on above: Performed By: #### L [id number] ####[employer] Operator: NIEVES RUIZ ([phone])[facility])[address] [place] [address] MCH (RBC) [Entitic mass] 29.8 pg Normal 26.0-34.0 [facility] Comment on above: Performed By: #### L [id number] ####[employer] Operator: NIEVES RUIZ ([phone])[facility])[address] [place] [address] MCHC 31.9 % Normal 30.5-36.0 [facility] Comment on above: Performed By: #### L [id number] ####Numer[employer] Operator: NIEVES RUIZ ([phone])[facility])[address] [place] [address] MCV (RBC) [Entitic vol] 93.3 fL Normal 77.0-99.0 [facility] Comment on above: Performed By: #### L [id number] ####Numer[employer] Operator: NIEVES RUIZ ([phone])[facility])[address] [place] [address] Monocytes (Bld) [#/Vol] 0.5 10*3/uL Normal 0.0-0.9 [facility] Comment on above: Performed By: #### L [id number] ####[employer] Operator: NIEVES RUIZ ([phone])[facility] ([facility])[address] [place] [address] Monocytes/100 WBC (Bld) 6.0 % Normal 5.0-13.0 [facility] Comment on above: Performed By: #### L [id number] ####[employer] Operator: NIEVES RUIZ ([phone])[facility] ([facility])[address] [place] [address] NEUTROPHILS ABSOLUTE 6.6 10*3/uL Normal 1.8-7.5 [facility] Comment on above: Performed By: #### L [id number] ####Numer[employer] Operator: NIEVES RUIZ ([phone])[facility] ([facility])[address] [place] [address] Neutrophils/100 WBC (Bld) 80.8 % Normal 38.0-82.0 [facility] Comment on above: Performed By: #### L [id number] ####[employer] Operator: NIEVES RUIZ ([phone])[facility] ([facility])[address] [place] [address] NRBC 0.0 /100 WBCs Normal 0.0-2.0 [facility] Comment on above: Performed By: #### L [id number] ####Numer[employer] Operator: NIEVES RUIZ ([phone])[facility] ([facility])[address] [place] [address] Platelet mean volume (Bld) [Entitic vol] 11.6 fL Normal 9.0-12.7 [facility] Comment on above: Performed By: #### L [id number] ####[employer] Operator: NIEVES RUIZ ([phone])[facility] ([facility])[address] [place] [address] [place] Platelets (Bld) [#/Vol] 323 10*3/uL Normal 140-440 [facility] Comment on above: Performed By: #### L [id number] ####Numer[employer] Operator: NIEVES RUIZ ([phone])[facility] ([facility])[address] [place] [address] RBC (Bld) [#/Vol] 3.56 10*6/uL Low 3.80-5.20 [facility] Comment on above: Performed By: #### L [id number] ####[employer] Operator: NIEVES RUIZ ([phone])[facility])[address] [place] [address] WBC (Bld) [#/Vol] 8.2 10*3/uL Normal 3.6-10.7 [facility] Comment on above: Performed By: #### L [id number] ####[employer] Operator: NIEVES RUIZ ([phone])[facility])[address] [place] [address] Laboratory - Chemistry and C hemistry - challengeon 05-15-2025 Glucose [Mass/Vol] 155 mg/dL High 70 - 100 mg/dL [facility] Glucose [Mass/Vol] 178 mg/dL High 70 - 100 mg/dL [facility] Glucose [Mass/Vol] 192 mg/dL High 70 - 100 mg/dL [facility] Glucose [Mass/Vol] 77 mg/dL 70 - 100 mg/dL [facility] No Panel Informationon 05-15 Interpretation and review of laboratory results Abnormal [facility] Interpretation and review of laboratory results Abnormal [facility] Interpretation and review of laboratory results Abnormal [facility] Interpretation and review of laboratory results Normal [facility] Progress Noteon 05-15-2025 Progress Note Normal [facility] Progress Note Normal [facility] Progress Note Normal [facility] Progress Note Normal [facility] BASIC METABOLIC PANELon 04-23 Anion gap [Moles/Vol] 7 mmol/L Normal 3-13 [facility] Comment on above: Performed By: #### L [id number], LAB15, [id number] ####[employer] Operator: NIEVES RUIZ ([phone])[facility] ([facility])[address] [place] [address] Calcium [Mass/Vol] 8.0 mg/dL Low 8.8-10.0 [facility] Comment on above: Performed By: #### Wayne HERNANDEZ21, LAB15, [id number] ####[employer] Operator: NIEVES RUIZ ([phone])[facility] ([facility])[address] [place] [address] Chloride [Moles/Vol] 113 mmol/L High 98-107 [facility] Comment on above: Performed By: #### Wayne HERNANDEZ21, LAB15, [id number] ####[employer] Operator: NIEVES RUIZ ([phone])[facility] ([facility])[address] [place] [address] CO2 [Moles/Vol] 20 mmol/L Low 23-31 [facility] Comment on above: Performed By: #### Wayne CAICEDO, LAB15, [id number] ####[employer] Operator: NIEVES RUIZ ([phone])[facility] ([facility])[address] [place] [address] Creatinine [Mass/Vol] 0.70 mg/dL Normal 0.58-1.12 [facility] Comment on above: Performed By: #### Wayne CAICEDO, LAB15, [id number] ####[employer] Operator: NIEVES RUIZ ([phone])[facility] ([facility])[address] [place] [address] GLOMERULAR FILTRATION RATE ML/MIN/1.73 SQ M.PREDICTED >90.0 Normal >60.0 [facility] Comment on above: Result Comment: Calc ulation based on the Chronic Kidney Disease Epidemiology Collaboration (CKD-EPI) equation refit without adjustment for race Performed By: #### Wayne HERNANDEZ21, LAB15, [id number] ####[employer] Operator: NIEVES RUIZ ([phone])[facility])[address] [place] [address] Glucose [Mass/Vol] 115 mg/dL Normal 82-115 [facility] Comment on above: Performed By: #### Wayne CAICEDO, LAB15, [id number] ####[employer] Operator: NIEVES [id number])[facility] ([facility])[address] [place] [address] Potassium [Moles/Vol] 3.4 mmol/L Low 3.5-5.1 [facility] Comment on above: Result Comment: [facility] potassium values may be up to 0.5 mmol/L lower than serum values. Performed By: #### L [id number], LAB15, [id number] ####Numer[employer] Control [employer] Operator: NIEVES RUIZ ([phone])[facility] ([facility])[address] [place] [address] Sodium [Moles/Vol] 140 mmol/L Normal 136-145 [facility] Comment on above: Performed By: #### L [id number], LAB15, [id number] ####Numer[employer] Operator: NIEVES RUIZ ([phone])[facility] ([facility])[address] [place] [address] Urea nitrogen [Mass/Vol] 16 mg/dL Normal 9-23 [facility] Comment on above: Performed By: #### L [id number], LAB15, [id number] ####[employer] Operator: NIEVES RUIZ ([phone])[facility] ([facility])[address] [place] [address] Basic metabolic 1998 panelon 05-14-2025 Anion gap [Moles/Vol] 7 mmol/L 3 - 13 mmol/L [facility] Calcium [Mass/Vol] 8 mg/dL Low 8.8 - 10. 0 mg/dL [facility] Chloride [Moles/Vol] 113 mmol/L High 98 - 10 7 mmol/L [facility] CO2 [Moles/Vol] 20 mmol/L Low 23 - 31 mmol/L [facility] Creatinine [Mass/Vol] 0.7 mg/dL 0.58 - 1.12 mg/dL [facility] GFR/1.73 sq M.predicted (S/P/Bld) [Vol rate/Area] - PINF [facility] Glucose [Mass/Vol] 115 mg/dL 82 - 115 mg/dL [facility] Interpretation and review of laboratory results Abnormal [facility] Potassium [Moles/Vol] 3.4 mmol/L Low 3.5 - 5.1 mmol/L [facility] Sodium [Moles/Vol] 140 mmol/L 136 - 145 mmol/L [facility] Urea nitrogen [Mass/Vol] 16 mg/dL 9 - 23 mg/dL [facility] CBC W Auto Differential pane l (Bld)on 05-14-2025 Basophils (Bld) [#/Vol] 0 10*3/uL 0.0 - 0.2 10*3/uL [facility] Basophils/100 WBC (Bld) 0.5 % 0.0 - 2.0 % [facility] Eosinophils (Bld) [#/Vol] 0.2 10*3/uL 0. 0 - 0.5 10*3/uL [facility] Eosinophils/100 WBC (Bld) 2.2 % 0.0 - 6.0 % [facility] Erythrocyte distribution width (RBC) [Ratio] 13.2 % 11.5 - 15.0 % [facility] Hematocrit (Bld) [Volume fraction] 30 % Low 35.0 - 47.0 % [facility] Hemoglobin (Bld) [Mass/Vol] 9.6 g/dL Low 11.7 - 16.0 g/dL [facility] Immature granulocytes (Bld) [#/Vol] 0.1 10*3/uL High NINF - 0.1 10*3/uL [facility] Immature granulocytes/100 WBC (Bld) 0.7 % 0.0 - 2.0 % [facility] Interpretation and review of laboratory results Abnormal [facility] th Lymphocytes (Bld) [#/Vol] 0.7 10*3/uL Low 1. 0 - 4.3 10*3/uL [facility] Lymphocytes/100 WBC (Bld) 8.4 % Low 15 .0 - 45.0 % [facility] MCH (RBC) [Entitic mass] 29.9 pg 26. 0 - 34.0 pg [facility] MCHC (RBC) [Mass/Vol] 32 % 30.5 - 36.0 % [facility] MCV (RBC) [Entitic vol] 93.5 fL 77.0 - 99.0 fL [facility] Monocytes (Bld) [#/Vol] 0.5 10*3/uL 0.0 - 0.9 10*3/uL [facility] Monocytes/100 WBC (Bld) 5.7 % 5.0 - 13.0 % [facility] Neutrophils (Bld) [#/Vol] 7.2 10*3/uL 1. 8 - 7.5 10*3/uL [facility] Neutrophils/100 WBC (Bld) 82.5 % High 38 .0 - 82.0 % [facility] Nucleated RBC/100 WBC (Bld) [Ratio] 0 % [facility] Platelet mean volume (Bld) [Entitic vol] 10.9 fL 9.0 - 12.7 fL [facility] Platelets (Bld) [#/Vol] 264 10*3/uL 140 - 440 10*3/uL [facility] RBC (Bld) [#/Vol] 3.21 10*6/uL Low 3.80 - 5.2 0 10*6/uL [facility] WBC (Bld) [#/Vol] 8.7 10*3/uL 3.6 - 10.7 10*3/uL [facility] CBC WITH AUTO DIFFERENTIALon 05-14-2025 Basophils (Bld) [#/Vol] 0.0 10*3/uL Normal 0.0-0.2 [facility] Comment on above: Performed By: #### L [id number] ####[employer] Operator: NIEVES RUIZ ([phone])[facility])[address] [place] [address] Basophils/100 WBC (Bld) 0.5 % Normal 0.0-2.0 [facility] Comment on above: Performed By: #### L [id number] ####[employer] Operator: NIEVES RUIZ ([phone])[facility])[address] [place] [address] Eosinophils (Bld) [#/Vol] 0.2 10*3/uL Normal 0.0-0.5 [facility] Comment on above: Performed By: #### L [id number] ####[employer] Operator: NIEVES RUIZ ([phone])[facility])[address] [place] [address] [place] Eosinophils/100 WBC (Bld) 2.2 % Normal 0.0-6.0 [facility] Comment on above: Performed By: #### L [id number] ####[employer] Operator: NIEVES RUIZ ([phone])[facility] ([facility])[address] [place] [address] Erythrocyte distribution width (RBC) [Ratio] 13.2 % Normal 11.5-15.0 [facility] Comment on above: Performed By: #### L [id number] ####[employer] Operator: NIEVES RUIZ ([phone])[facility])[address] [place] [address] Hematocrit (Bld) [Volume fraction] 30.0 % Low 35.0-47.0 [facility] Comment on above: Performed By: #### L [id number] ####[employer] Operator: NIEVES RUIZ ([phone])[facility])[address] [place] [address] Hemoglobin (Bld) [Mass/Vol] 9.6 g/dL Low 11.7-16.0 [facility] Comment on above: Performed By: #### L [id number] ####[employer] Operator: NIEVES RUIZ ([phone])[facility] ([facility])[address] [place] [address] IMMATURE GRANS % 0.7 % Normal 0.0-2.0 [facility] Comment on above: Performed By: #### L [id number] ####[employer] Operator: NIEVES RUIZ ([phone])[facility])[address] [place] [address] IMMATURE GRANS ABSOLUTE 0.1 10*3/uL High <0.1 [facility] Comment on above: Performed By: #### L [id number] ####[employer] Operator: NIEVES RUIZ ([phone])[facility])[address] [place] [address] Lymphocytes (Bld) [#/Vol] 0.7 10*3/uL Low 1.0-4.3 [facility] Comment on above: Performed By: #### L [id number] ####[employer] Operator: NIEVES RUIZ ([phone])[facility])[address] [place] [address] Lymphocytes/100 WBC (Bld) 8.4 % Low 15.0-45.0 [facility] Comment on above: Performed By: #### L [id number] ####[employer] Operator: NIEVES RUIZ ([phone])[facility])[address] [place] [address] MCH (RBC) [Entitic mass] 29.9 pg Normal 26.0-34.0 [facility] Comment on above: Performed By: #### L [id number] ####[employer] Operator: NIEVES RUIZ ([phone])[facility])[address] [place] [address] MCHC 32.0 % Normal 30.5-36.0 [facility] Comment on above: Performed By: #### L [id number] ####[employer] Operator: NIEVES RUIZ ([phone])[facility])[address] [place] [address] MCV (RBC) [Entitic vol] 93.5 fL Normal 77.0-99.0 [facility] Comment on above: Performed By: #### L [id number] ####[employer] Operator: NIEVES RUIZ ([phone])[facility])[address] [place] [address] Monocytes (Bld) [#/Vol] 0.5 10*3/uL Normal 0.0-0.9 [facility] Comment on above: Performed By: #### L [id number] ####[employer] Operator: NIEVES RUIZ ([id number])[facility])[address] [place] [address] Monocytes/100 WBC (Bld) 5.7 % Normal 5.0-13.0 [facility] Comment on above: Performed By: #### L [id number] ####[employer] Operator: NIEVES RUIZ ([id number])[facility])[address] [place] [address] NEUTROPHILS ABSOLUTE 7.2 10*3/uL Normal 1.8-7.5 [facility] Comment on above: Performed By: #### L [id number] ####[employer] Operator: NIEVES RUIZ ([phone])[facility] ([facility])[address] [place] [address] Neutrophils/100 WBC (Bld) 82.5 % High 38.0-82.0 [facility] Comment on above: Performed By: #### L [id number] ####[employer] Operator: NIEVES RUIZ ([phone])[facility] ([facility])[address] [place] [address] NRBC 0.0 /100 WBCs Normal 0.0-2.0 [facility] Comment on above: Performed By: #### L [id number] ####Numerical Control Drill Press Operator: NIEVES RUIZ ([phone])[facility] ([facility])[address] [place] [address] Platelet mean volume (Bld) [Entitic vol] 10.9 fL Normal 9.0-12.7 [facility] Comment on above: Performed By: #### L [id number] ####Numerical Control Drill Press Operator: NIEVES RUIZ ([phone])[facility] ([facility])[address] [place] [address] Platelets (Bld) [#/Vol] 264 10*3/uL Normal 140-440 [facility] Comment on above: Performed By: #### L [id number] ####Numerical Control Drill Press Operator: NIEVES RUIZ ([phone])[facility] ([facility])[address] [place] [address] RBC (Bld) [#/Vol] 3.21 10*6/uL Low 3.80-5.20 [facility] Comment on above: Performed By: #### L [id number] ####Numerical Control Drill Press Operator: NIEVES RUIZ ([phone])[facility] ([facility])[address] [place] [address] WBC (Bld) [#/Vol] 8.7 10*3/uL Normal 3.6-10.7 [facility] Comment on above: Performed By: #### L [id number] ####Numerical Control Drill Press Operator: NIEVES RUIZ ([phone])[facility] ([facility])[address] [place] [address] Laboratory - Chemistry and C hemistry - challengeon 05-14-2025 Glucose [Mass/Vol] 165 mg/dL High 70 - 100 mg/dL [facility] Glucose [Mass/Vol] 141 mg/dL High 70 - 100 mg/dL [facility] Glucose [Mass/Vol] 141 mg/dL High 70 - 100 mg/dL [facility] Glucose [Mass/Vol] 130 mg/dL High 70 - 100 mg/dL [facility] Procalcitonin [Mass/Vol] 0.25 ng/mL High ISAEL F - 0.07 ng/mL [facility] Magnesium [Mass/Vol] 1.8 mg/dL 1.6 - 2 .6 mg/dL [facility] MAGNESIUMon 05-14-2025 Magnesium [Mass/Vol] 1.8 mg/dL Normal 1.6-2.6 [facility] Comment on above: Result Comment: SUNG R COMMENTS:Higher values can be expected in females during menses. Performed By: #### L [id number], [id number], [id number] ####Numerical Control Drill Press Operator: NIEVES RUIZ ([phone])[facility])[address] [place] [address] Magnesium [Mass/Vol]on 05-14 Interpretation and review of laboratory results Normal [facility] No Panel Informationon 05-14 Interpretation and review of laboratory results Abnormal [facility] Interpretation and review of laboratory results Abnormal [facility] Interpretation and review of laboratory results Abnormal [facility] Interpretation and review of laboratory results Abnormal [facility] PROCALCITONIN TESTon 025 PROCALCITONIN 0.25 ng/mL High <0.07 [facility] [employer] Comment on above: Result Comment: ORDE R COMMENTS:PCT <0.50 = Low risk of severe sepsis and/or septic shock.PCT >2.00 = High risk of severe sepsis and/or septic shock. Performed By: #### L [id number], [id number], [id number] ####Numerical Control Drill Press Operator: NIEVES RUIZ ([id number])[facility] ([facility])[address] [place] [address] Procalcitonin [Mass/Vol]on Interpretation and review of laboratory results Abnormal [facility] Progress Noteon 05-14-2025 Progress Note Normal [facility] Progress Note Normal [facility] Progress Note Normal [facility] Bacteria identified Cx Nom ( U)Ordered By: Berta Dorman on 05-13-2025 Interpretation and review of laboratory results Normal [facility] C. DIFFICILE BY PCR WITH REF RONAN TO EIAon 05-13-2025 C. DIFFICILE BY PCR WITH REFLEX TO EIA C. DIFFICILE TOXIN PCR Reference Not Detected Not Detected ORDER COMMENTS: C. difficile infection is unlikely to be present. Methodology: Real-time PCR Normal [facility] Comment on above: Performed By: #### L [id number] ####Numerical Control Drill Press Operator: NIEVES RUIZ ([id number])[facility] ([facility])[address] [place] [address] C. difficile toxin genes JEANNIE +probe Ql (Stl)on 05-13-2025 C. difficile toxin B tcdB gene JEANNIE+probe Ql (Stl) Not detected Not Detected [facility] Interpretation and review of laboratory results Normal [facility] CBC W Auto Differential pane l (Bld)on 05-13-2025 Basophils (Bld) [#/Vol] 0.1 10*3/uL 0.0 - 0.2 10*3/uL [facility] Basophils/100 WBC (Bld) 0.6 % 0.0 - 2.0 % [facility] Eosinophils (Bld) [#/Vol] 0.2 10*3/uL 0. 0 - 0.5 10*3/uL [facility] Eosinophils/100 WBC (Bld) 1.9 % 0.0 - 6.0 % [facility] Erythrocyte distribution width (RBC) [Ratio] 13.3 % 11.5 - 15.0 % [facility] Hematocrit (Bld) [Volume fraction] 32.9 % Low 35.0 - 47.0 % [facility] Hemoglobin (Bld) [Mass/Vol] 10.4 g/dL Low 11.7 - 16.0 g/dL [facility] Immature granulocytes (Bld) [#/Vol] 0.1 10*3/uL High NINF - 0.1 10*3/uL [facility] Immature granulocytes/100 WBC (Bld) 0.7 % 0.0 - 2.0 % [facility] Interpretation and review of laboratory results Abnormal [facility] th Lymphocytes (Bld) [#/Vol] 0.8 10*3/uL Low 1. 0 - 4.3 10*3/uL [facility] Lymphocytes/100 WBC (Bld) 7.7 % Low 15 .0 - 45.0 % [facility] MCH (RBC) [Entitic mass] 29.8 pg 26. 0 - 34.0 pg [facility] MCHC (RBC) [Mass/Vol] 31.6 % 30.5 - 36.0 % [facility] MCV (RBC) [Entitic vol] 94.3 fL 77.0 - 99.0 fL [facility] Monocytes (Bld) [#/Vol] 0.6 10*3/uL 0.0 - 0.9 10*3/uL [facility] Monocytes/100 WBC (Bld) 5.3 % 5.0 - 13.0 % [facility] Neutrophils (Bld) [#/Vol] 8.7 10*3/uL High 1. 8 - 7.5 10*3/uL [facility] Neutrophils/100 WBC (Bld) 83.8 % High 38 .0 - 82.0 % [facility] Nucleated RBC/100 WBC (Bld) [Ratio] 0 % [facility] Platelet mean volume (Bld) [Entitic vol] 11 fL 9.0 - 12.7 fL [facility] Platelets (Bld) [#/Vol] 303 10*3/uL 140 - 440 10*3/uL [facility] RBC (Bld) [#/Vol] 3.49 10*6/uL Low 3.80 - 5.2 0 10*6/uL [facility] WBC (Bld) [#/Vol] 10.4 10*3/uL 3.6 - 10.7 10*3/uL [facility] CBC WITH AUTO DIFFERENTIALon 05-13-2025 Basophils (Bld) [#/Vol] 0.1 10*3/uL Normal 0.0-0.2 [facility] Comment on above: Performed By: #### L [id number] ####Numerical Control Drill Press Operator: NIEVES RUIZ ([phone])[facility])[address] [place] [address] Basophils/100 WBC (Bld) 0.6 % Normal 0.0-2.0 [facility] Comment on above: Performed By: #### L [id number] ####Numerical Control Drill Press Operator: NIEVES RUIZ ([id number])[facility])[address] [place] [address] Eosinophils (Bld) [#/Vol] 0.2 10*3/uL Normal 0.0-0.5 [facility] Comment on above: Performed By: #### L [id number] ####Numerical Control Drill Press Operator: NIEVES RUIZ ([phone])[facility])[address] [place] [address] Eosinophils/100 WBC (Bld) 1.9 % Normal 0.0-6.0 [facility] Comment on above: Performed By: #### L [id number] ####Numerical Control Drill Press Operator: NIEVES RUIZ ([phone])[facility])[address] [place] [address] Erythrocyte distribution width (RBC) [Ratio] 13.3 % Normal 11.5-15.0 [facility] Comment on above: Performed By: #### L [id number] ####Numerical Control Drill Press Operator: NIEVES RUIZ ([id number])[facility])[address] [place] [address] Hematocrit (Bld) [Volume fraction] 32.9 % Low 35.0-47.0 [facility] Comment on above: Performed By: #### L [id number] ####Numerical Control Drill Press Operator: NIEVES RUIZ ([phone])[facility])[address] [place] [address] Hemoglobin (Bld) [Mass/Vol] 10.4 g/dL Low 11.7-16.0 [facility] Comment on above: Performed By: #### L [id number] ####Numerical Control Drill Press Operator: NIEVES RUIZ ([phone])[facility])[address] [place] [address] IMMATURE GRANS % 0.7 % Normal 0.0-2.0 [facility] Comment on above: Performed By: #### L [id number] ####Numerical Control Drill Press Operator: NIEVES RUIZ ([phone])[facility])[address] [place] [address] IMMATURE GRANS ABSOLUTE 0.1 10*3/uL High <0.1 [facility] Comment on above: Performed By: #### L [id number] ####Numerical Control Drill Press Operator: NIEVES RUIZ ([id number])[address] Lymphocytes (Bld) [#/Vol] 0.8 10*3/uL Low 1.0-4.3 [facility] Comment on above: Performed By: #### L [id number] ####Numerical Control Drill Press Operator: NIEVES RUIZ ([id number])[address] Lymphocytes/100 WBC (Bld) 7.7 % Low 15.0-45.0 [facility] Comment on above: Performed By: #### L [id number] ####Numerical Control Drill Press Operator: NIEVES RUIZ ([id number])[address] MCH (RBC) [Entitic mass] 29.8 pg Normal 26.0-34.0 [facility] Comment on above: Performed By: #### L [id number] ####Numerical Control Drill Press Operator: NIEVES RUIZ ([phone])[address] MCHC 31.6 % Normal 30.5-36.0 [facility] Comment on above: Performed By: #### L [id number] ####Numerical Control Drill Press Operator: NIEVES RUIZ ([phone])[facility] ([facility])[address] [place] [address] MCV (RBC) [Entitic vol] 94.3 fL Normal 77.0-99.0 S [facility] Comment on above: Performed By: #### L [id number] ####Numerical Control Drill Press Operator: NIEVES RUIZ ([phone])[facility] ([facility])[address] [place] [address] Monocytes (Bld) [#/Vol] 0.6 10*3/uL Normal 0.0-0.9 [facility] Comment on above: Performed By: #### L [id number] ####Numerical Control [employer]ill Press Operator: NIEVES RUIZ ([phone])[facility] ([facility])[address] [place] [address] Monocytes/100 WBC (Bld) 5.3 % Normal 5.0-13.0 [facility] Comment on above: Performed By: #### L [id number] ####Numerical Control Drill Press Operator: NIEVES RUIZ ([id number])[facility] ([facility])[address] [place] [address] NEUTROPHILS ABSOLUTE 8.7 10*3/uL High 1.8-7.5 [facility] Comment on above: Performed By: #### L [id number] ####Numerical Control Drill Press Operator: NIEVES RUIZ ([id number])[facility] ([facility])[address] [place] [address] Neutrophils/100 WBC (Bld) 83.8 % High 38.0-82.0 [facility] Comment on above: Performed By: #### L [id number] ####Numerical Control Drill Press Operator: NIEVES RUIZ ([id number])[facility] ([facility])[address] [place] [address] NRBC 0.0 /100 WBCs Normal 0.0-2.0 [facility] Comment on above: Performed By: #### L [id number] ####Numerical Control Drill Press Operator: NIEVES RUIZ ([id number])[facility] ([facility])[address] [place] [address] Platelet mean volume (Bld) [Entitic vol] 11.0 fL Normal 9.0-12.7 [facility] Comment on above: Performed By: #### L [id number] ####Numerical Control Drill Press Operator: NIEVES RUIZ ([phone])[facility] ([facility])[address] [place] [address] Platelets (Bld) [#/Vol] 303 10*3/uL Normal 140-440 [facility] Comment on above: Performed By: #### L [id number] ####Numerical Control Drill Press Operator: NIEVES RUIZ ([phone])[facility] ([facility])[address] [place] [address] RBC (Bld) [#/Vol] 3.49 10*6/uL Low 3.80-5.20 [facility] Comment on above: Performed By: #### L [id number] ####Numerical Control Drill Press Operator: NIEVES RUIZ ([phone])[facility] ([facility])[address] [place] [address] WBC (Bld) [#/Vol] 10.4 10*3/uL Normal 3.6-10.7 [facility] Comment on above: Performed By: #### L [id number] ####Numerical Control Drill Press Operator: NIEVES RUIZ ([id number])[facility] ([facility])[address] [place] [address] ECG 12-LEADon 05-13-2025 ECG 12-LEAD IMPRESSION: Sinus bradycardia Left ventricular hypertrophy Left anterior fascicular block Electronically Signed On 05-13-2025 17:55:20 EDT by Elva Gamboa Normal [facility] Laboratory - Chemistry and C hemistry - challengeon 05-13-2025 Glucose [Mass/Vol] 178 mg/dL High 70 - 100 mg/dL [facility] Glucose [Mass/Vol] 117 mg/dL High 70 - 100 mg/dL [facility] Glucose [Mass/Vol] 149 mg/dL High 70 - 100 mg/dL [facility] Glucose [Mass/Vol] 130 mg/dL High 70 - 100 mg/dL [facility] Laboratory - Microbiology an d Antimicrobial susceptibilityOrdered By: Berta Dorman on 05-13-2025 Bacteria identified Cx Nom (U) Multiple species present; probable contamination; repeat suggested [facility] No Panel Informationon 05-13 Interpretation and review of laboratory results Abnormal [facility] CV EPIPHANY [facility] Interpretation and review of laboratory results Abnormal [facility] Interpretation and review of laboratory results Abnormal [facility] Interpretation and review of laboratory results Abnormal [facility] No Panel InformationOrdered By: Elva Gamboa on 05-13-2025 P [place] 0 degrees [facility] Work Phone: OR Interval 70 ms [facility] Work Phone: QRS [place] -33 degrees [facility] Work Phone: QRSD Interval 110 ms [facility] Work Phone: QT Interval 460 ms [facility] Work Phone: QTC Interval 432 ms [facility] [employer] Work Phone: T Wave [place] -67 degrees [facility] Work Phone: [employer] Work Phone: Progress Noteon 05-13-2025 Progress Note Normal [facility] [place] [facility] [employer] Progress Note Normal [facility] [employer] Vital signsOrdered By: Elva Gamboa on 05-13-2025 Heart rate 53 /min bpm [facility] Work Phone: [phone] 05-12-2025 [id number] Normal [facility] CBC W Auto Differential pane l (Bld)Ordered By: Toshia Rowland on 05-12-2025 Basophils (Bld) [#/Vol] 0 10*3/uL 0.0 - 0.2 10*3/uL [facility] Basophils/100 WBC (Bld) 0.2 % 0.0 - 2.0 % [facility] Eosinophils (Bld) [#/Vol] 0 10*3/uL 0. 0 - 0.5 10*3/uL [facility] Eosinophils/100 WBC (Bld) 0.3 % 0.0 - 6.0 % [facility] Erythrocyte distribution width (RBC) [Ratio] 13 % 11.5 - 15.0 % [facility] Hematocrit (Bld) [Volume fraction] 33.1 % Low 35.0 - 47.0 % [facility] Hemoglobin (Bld) [Mass/Vol] 11.1 g/dL Low 11.7 - 16.0 g/dL [facility] Immature granulocytes (Bld) [#/Vol] 0.1 10*3/uL High NINF - 0.1 10*3/uL [facility] Immature granulocytes/100 WBC (Bld) 0.7 % 0.0 - 2.0 % [facility] Interpretation and review of laboratory results Abnormal [facility] th Lymphocytes (Bld) [#/Vol] 0.7 10*3/uL Low 1. 0 - 4.3 10*3/uL [facility] Lymphocytes/100 WBC (Bld) 5.8 % Low 15 .0 - 45.0 % [facility] MCH (RBC) [Entitic mass] 30.5 pg 26. 0 - 34.0 pg [facility] MCHC (RBC) [Mass/Vol] 33.5 % 30.5 - 36.0 % [facility] MCV (RBC) [Entitic vol] 90.9 fL 77.0 - 99.0 fL [facility] Monocytes (Bld) [#/Vol] 0.8 10*3/uL 0.0 - 0.9 10*3/uL [facility] Monocytes/100 WBC (Bld) 6.3 % 5.0 - 13.0 % [facility] Neutrophils (Bld) [#/Vol] 11 10*3/uL High 1. 8 - 7.5 10*3/uL [facility] Neutrophils/100 WBC (Bld) 86.7 % High 38 .0 - 82.0 % [facility] Nucleated RBC/100 WBC (Bld) [Ratio] 0 % [facility] Platelet mean volume (Bld) [Entitic vol] 11.3 fL 9.0 - 12.7 fL [facility] Platelets (Bld) [#/Vol] 325 10*3/uL 140 - 440 10*3/uL [facility] RBC (Bld) [#/Vol] 3.64 10*6/uL Low 3.80 - 5.2 0 10*6/uL [facility] WBC (Bld) [#/Vol] 12.7 10*3/uL High 3.6 - 10.7 10*3/uL [facility] Comprehensive metabolic 1998 panelon 05-12-2025 Albumin [Mass/Vol] 2.1 g/dL Low 3.4 - 4.8 g/dL [facility] ALP [Catalytic activity/Vol] 68 U/L 40 - 150 U/L [facility] ALT [Catalytic activity/Vol] U/L NINF - 30 U/L [facility] Anion gap [Moles/Vol] 9 mmol/L 3 - 13 mmol/L [facility] AST [Catalytic activity/Vol] 15 U/L NINF - 34 U/L [facility] Bilirubin [Mass/Vol] 1 mg/dL NINF - 1.2 mg/dL [facility] Calcium [Mass/Vol] 8.6 mg/dL Low 8.8 - 10. 0 mg/dL [facility] Chloride [Moles/Vol] 108 mmol/L High 98 - 10 7 mmol/L [facility] CO2 [Moles/Vol] 21 mmol/L Low 23 - 31 mmol/L [facility] Creatinine [Mass/Vol] 0.92 mg/dL 0.57 - 1.11 mg/dL [facility] GFR/1.73 sq M.predicted (S/P/Bld) [Vol rate/Area] 67.1 mL/min - PINF [facility] Glucose [Mass/Vol] 176 mg/dL High 82 - 115 mg/dL [facility] Interpretation and review of laboratory results Abnormal [facility] th Potassium [Moles/Vol] 3 mmol/L Low 3.5 - 5.1 mmol/L [facility] Protein [Mass/Vol] 6.5 g/dL 6.4 - 8.3 g/dL [facility] Sodium [Moles/Vol] 138 mmol/L 136 - 145 mmol/L [facility] Urea nitrogen [Mass/Vol] 20 mg/dL 9 - 23 mg/dL [facility] Consulton 05-12-2025 Consult Normal [facility] Consult Normal [facility] LACTIC ACID WITH REFLEXon Lactate [Moles/Vol] 1.1 mmol/L Normal 0.5-2.2 [facility] Comment on above: Performed By: #### L [id number] ####[employer] Operator: NIEVES RUIZ ([phone])[facility] ([facility])[address] [place] [address] Laboratory - Chemistry and C hemistry - challengeon 05-12-2025 Glucose [Mass/Vol] 207 mg/dL High 70 - 100 mg/dL [facility] Glucose [Mass/Vol] 243 mg/dL High 70 - 100 mg/dL [facility] Glucose [Mass/Vol] 133 mg/dL High 70 - 100 mg/dL [facility] Glucose [Mass/Vol] 146 mg/dL High 70 - 100 mg/dL [facility] Lactate [Moles/Vol] 1.1 mmol/L 0.5 - 2. 2 mmol/L [facility] Average glucose Estimated from glycated hemoglobin (Bld) [Mass/Vol] 163 mg/dL [facility] Procalcitonin [Mass/Vol] 0.49 ng/mL High ISAEL F - 0.07 ng/mL [facility] Magnesium [Mass/Vol] 2 mg/dL 1.6 - 2 .6 mg/dL [facility] Lactate [Moles/Vol] 2.1 mmol/L 0.5 - 2. 2 mmol/L [facility] Laboratory - Hematology and Cell countson 05-12-2025 HbA1c (Bld) [Mass fraction] 7.3 % High [facility] Magnesium [Mass/Vol]on 05-12 Interpretation and review of laboratory results Normal [facility] No Panel Informationon 05-12 Interpretation and review of laboratory results Abnormal [facility] Interpretation and review of laboratory results Abnormal [facility] Interpretation and review of laboratory results Abnormal [facility] Interpretation and review of laboratory results Abnormal [facility] Interpretation and review of laboratory results Normal [facility] Interpretation and review of laboratory results Abnormal [facility] Interpretation and review of laboratory results Normal [facility] Nursing Noteon 05-12-2025 Nursing Note Normal [facility] Procalcitonin [Mass/Vol]on 1 Interpretation and review of laboratory results Abnormal [facility] Progress Noteon 05-12-2025 Progress Note Vancomycin therapy has been discontinued by Dr. Gil on 05/12/25. Thank you for the consult. Pharmacy signing off for vancomycin dosing. Emili Lara PharmD Date: 05/12/25 Time: 1:50 PM Normal [facility] Progress Note Normal [facility] BETA HYDROXYBUTYRATEon 05-11 BETA HYDROXYBUTYRATE 9.6 mg/dL High <=2.8 [facility] Comment on above: Performed By: #### L [id number], LAB62, [id number], [id number], LAB17 ####[employer] Operator: NIEVES RUIZ ([phone])[address] BLOOD CULTUREon 05-11-2025 Bacteria identified Cx Nom (Bld) Normal [facility] Comment on above: Performed By: #### L [id number] ####[employer] Operator: NIEVES RUIZ ([phone])[facility])[address] [place] [address] Bacteria identified Cx Nom (Bld) Normal [facility] Comment on above: Performed By: #### L [id number] ####[employer] Operator: NIEVES RUIZ ([phone])[address] BLOOD GAS, VENOUSon 05-11-20 AMOUNT OF OXYGEN Normal [facility] Comment on above: Result Comment: SUNG Bryan COMMENTS:Assessment of oxygenation is best done with an arterial blood gas determination. Reference ranges for pO2, bicarbonate, and base excess are for mixed venous blood. Specimens drawn from a peripheral vein will often have higher values. Performed By: #### L [id number] ####[employer] Operator: NIEVES RUIZ ([id number])[address] Base excess Calc (BldV) [Moles/Vol] -0.9000 mmol/L Normal -3.0-3.0 [facility] Comment on above: Performed By: #### L [id number] ####[employer] Operator: NIEVES [id number])[facility] [place] [address] [place] CO2 [Moles/Vol] 23.0 mmol/L Low 24.0-28.0 [facility] Comment on above: Performed By: #### L [id number] ####[employer] Operator: NIEVES RUIZ ([phone])[facility] ([facility])[address] [place] [address] HCO3 (Bld) [Moles/Vol] 22.0 mmol/L Low 23.0-27.0 S [facility] Comment on above: Performed By: #### L [id number] ####[employer] Operator: NIEVES RUIZ ([phone])[facility])[address] [place] [address] Hemoglobin (Bld) [Mass/Vol] 11.5 g/dL Normal Screen only [facility] Comment on above: Performed By: #### L [id number] ####[employer] Operator: NIEVES RUIZ ([phone])[facility] ([facility])[address] [place] [address] OXYGEN (MM HG) IN VENOUS BLOOD 47.3 mm Hg Normal [facility] Comment on above: Performed By: #### L AB79 ####[employer] Operator: NIEVES RUIZ ([phone])[facility])[address] [place] [address] OXYGEN SATURATION (%) IN VENOUS BLOOD 83.1 % Normal [facility] Comment on above: Performed By: #### L AB79 ####[employer] Operator: NIEVES RUIZ ([phone])[facility])[address] [place] [address] [place] PCO2, WAQAR 31.0 mm Hg Low 40.0-55.0 [facility] Comment on above: Performed By: #### L AB79 ####[employer] Operator: NIEVES RUIZ ([phone])[facility] ([facility])[address] [place] [address] [place] PH VENOUS 7.469 High 7.330-7.430 [facility] Comment on above: Performed By: #### L AB79 ####[employer] Operator: NIEVES RUIZ ([phone])[facility] ([facility])[address] [place] [address] SOURCE OF OXYGEN None (Room Air) [facility] Comment on above: Performed By: #### L AB79 ####[employer] Operator: NIEVES RUIZ ([id number])[facility] ([facility])[address] [place] [address] CBC W Auto Differential pane l (Bld)Ordered By: Sharon Bustos on 05-11-2025 Basophils (Bld) [#/Vol] 0 10*3/uL 0.0 - 0.2 10*3/uL [facility] Basophils/100 WBC (Bld) 0.2 % 0.0 - 2.0 % [facility] Eosinophils (Bld) [#/Vol] 0 10*3/uL 0. 0 - 0.5 10*3/uL [facility] Eosinophils/100 WBC (Bld) 0 % 0.0 - 6.0 % [facility] Erythrocyte distribution width (RBC) [Ratio] 13.2 % 11.5 - 15.0 % [facility] Hematocrit (Bld) [Volume fraction] 35.2 % 35.0 - 47.0 % [facility] Hemoglobin (Bld) [Mass/Vol] 11.6 g/dL Low 11.7 - 16.0 g/dL [facility] Immature granulocytes (Bld) [#/Vol] 0.1 10*3/uL High NINF - 0.1 10*3/uL [facility] Immature granulocytes/100 WBC (Bld) 0.5 % 0.0 - 2.0 % [facility] Interpretation and review of laboratory results Abnormal [facility] Lymphocytes (Bld) [#/Vol] 0.4 10*3/uL Low 1. 0 - 4.3 10*3/uL [facility] Lymphocytes/100 WBC (Bld) 2.2 % Low 15 .0 - 45.0 % [facility] MCH (RBC) [Entitic mass] 30 pg 26. 0 - 34.0 pg [facility] MCHC (RBC) [Mass/Vol] 33 % 30.5 - 36.0 % [facility] MCV (RBC) [Entitic vol] 91 fL 77.0 - 99.0 fL [facility] Monocytes (Bld) [#/Vol] 0.7 10*3/uL 0.0 - 0.9 10*3/uL [facility] Monocytes/100 WBC (Bld) 4.4 % Low 5.0 - 13.0 % [facility] Neutrophils (Bld) [#/Vol] 15.7 10*3/uL High 1. 8 - 7.5 10*3/uL [facility] Neutrophils/100 WBC (Bld) 92.7 % High 38 .0 - 82.0 % [facility] Nucleated RBC/100 WBC (Bld) [Ratio] 0 % [facility] Platelet mean volume (Bld) [Entitic vol] 10.8 fL 9.0 - 12.7 fL [facility] Platelets (Bld) [#/Vol] 336 10*3/uL 140 - 440 10*3/uL [facility] RBC (Bld) [#/Vol] 3.87 10*6/uL 3.80 - 5.2 0 10*6/uL [facility] WBC (Bld) [#/Vol] 16.9 10*3/uL High 3.6 - 10.7 10*3/uL [facility] CBC WITH AUTO DIFFERENTIALon 05-11-2025 Basophils (Bld) [#/Vol] 0.0 10*3/uL Normal 0.0-0.2 [facility] Comment on above: Performed By: #### L [id number] ####[employer] Operator: NIEVES [id number])[facility] ([facility])[address] [place] [address] Basophils/100 WBC (Bld) 0.2 % Normal 0.0-2.0 S [facility] Comment on above: Performed By: #### L [id number] ####[employer] Operator: NIEVES [id number])[facility] ([facility])[address] [place] [address] Eosinophils (Bld) [#/Vol] 0.0 10*3/uL Normal 0.0-0.5 [facility] Comment on above: Performed By: #### L [id number] ####[employer] Operator: NIEVES [id number])[facility])[address] [place] [address] Eosinophils/100 WBC (Bld) 0.3 % Normal 0.0-6.0 [facility] Comment on above: Performed By: #### L [id number] ####[employer] Operator: NIEVES RUIZ ([phone])[facility])[address] [place] [address] Erythrocyte distribution width (RBC) [Ratio] 13.0 % Normal 11.5-15.0 [facility] Comment on above: Performed By: #### L [id number] ####[employer] Operator: NIEVES RUIZ ([phone])[facility])[address] [place] [address] Hematocrit (Bld) [Volume fraction] 33.1 % Low 35.0-47.0 [facility] Comment on above: Performed By: #### L [id number] ####[employer] Operator: NIEVES RUIZ ([phone])[facility])[address] [place] [address] Hemoglobin (Bld) [Mass/Vol] 11.1 g/dL Low 11.7-16.0 [facility] Comment on above: Performed By: #### L [id number] ####[employer] Operator: NIEVES RUIZ ([phone])[facility])[address] [place] [address] IMMATURE GRANS % 0.7 % Normal 0.0-2.0 [facility] Comment on above: Performed By: #### L [id number] ####[employer] Operator: NIEVES RUIZ ([phone])[facility])[address] [place] [address] IMMATURE GRANS ABSOLUTE 0.1 10*3/uL High <0.1 [facility] Comment on above: Performed By: #### L [id number] ####[employer] Operator: NIEVES RUIZ ([phone])[facility])[address] [place] [address] Lymphocytes (Bld) [#/Vol] 0.7 10*3/uL Low 1.0-4.3 [facility] Comment on above: Performed By: #### L [id number] ####[employer] Operator: NIEVES RUIZ ([phone])[facility])[address] [place] [address] Lymphocytes/100 WBC (Bld) 5.8 % Low 15.0-45.0 [facility] Comment on above: Performed By: #### L [id number] ####[employer] Operator: NIEVES RUIZ ([phone])[facility])[address] [place] [address] MCH (RBC) [Entitic mass] 30.5 pg Normal 26.0-34.0 [facility] Comment on above: Performed By: #### L [id number] ####[employer] Operator: NIEVES RUIZ ([phone])[facility])[address] [place] [address] MCHC 33.5 % Normal 30.5-36.0 [facility] Comment on above: Performed By: #### L [id number] ####[employer] Operator: NIEVES RUIZ ([phone])[facility])[address] [place] [address] MCV (RBC) [Entitic vol] 90.9 fL Normal 77.0-99.0 [facility] Comment on above: Performed By: #### L [id number] ####[employer] Operator: NIEVES RUIZ ([phone])[facility])[address] [place] [address] Monocytes (Bld) [#/Vol] 0.8 10*3/uL Normal 0.0-0.9 [facility] Comment on above: Performed By: #### L [id number] ####[employer] Operator: NIEVES RUIZ ([phone])[facility])[address] [place] [address] Monocytes/100 WBC (Bld) 6.3 % Normal 5.0-13.0 [facility] Comment on above: Performed By: #### L [id number] ####[employer] Operator: NIEVES RUIZ ([phone])[facility] ([facility])[address] [place] [address] NEUTROPHILS ABSOLUTE 11.0 10*3/uL High 1.8-7.5 [facility] Comment on above: Performed By: #### L [id number] ####[employer] Operator: NIEVES RUIZ ([phone])[facility])[address] [place] [address] Neutrophils/100 WBC (Bld) 86.7 % High 38.0-82.0 [facility] Comment on above: Performed By: #### L [id number] ####[employer] Operator: NIEVES RUIZ ([phone])[facility])[address] [place] [address] NRBC 0.0 /100 WBCs Normal 0.0-2.0 [facility] Comment on above: Performed By: #### L [id number] ####[employer] Operator: NIEVES RUZI ([phone])[facility] ([facility])[address] [place] [address] Platelet mean volume (Bld) [Entitic vol] 11.3 fL Normal 9.0-12.7 [facility] Comment on above: Performed By: #### L [id number] ####[employer] Operator: NIEVES RUIZ ([phone])[facility])[address] [place] [address] [place] Platelets (Bld) [#/Vol] 325 10*3/uL Normal 140-440 [facility] Comment on above: Performed By: #### L [id number] ####[employer] Operator: NIEVES RUIZ ([phone])[facility])[address] [place] [address] RBC (Bld) [#/Vol] 3.64 10*6/uL Low 3.80-5.20 [facility] Comment on above: Performed By: #### L [id number] ####[employer] Operator: NIEVES RUIZ ([phone])[facility])[address] [place] [address] WBC (Bld) [#/Vol] 12.7 10*3/uL High 3.6-10.7 [facility] Comment on above: Performed By: #### L [id number] ####[employer] Operator: NIEVES RUIZ ([phone])[facility])[address] [place] [address] Basophils (Bld) [#/Vol] 0.0 10*3/uL Normal 0.0-0.2 [facility] Comment on above: Performed By: #### L [id number] ####[employer] Operator: NIEVES RUIZ ([phone])[facility])[address] [place] [address] Basophils/100 WBC (Bld) 0.2 % Normal 0.0-2.0 [facility] Comment on above: Performed By: #### L [id number] ####[employer] Operator: NIEVES RUIZ ([phone])[facility] ([facility])[address] [place] [address] Eosinophils (Bld) [#/Vol] 0.0 10*3/uL Normal 0.0-0.5 [facility] Comment on above: Performed By: #### L [id number] ####[employer] Operator: NIEVES RUIZ ([phone])[facility])[address] [place] [address] Eosinophils/100 WBC (Bld) 0.0 % Normal 0.0-6.0 [facility] Comment on above: Performed By: #### L [id number] ####[employer] Operator: NIEVES RUIZ ([phone])[facility])[address] [place] [address] Erythrocyte distribution width (RBC) [Ratio] 13.2 % Normal 11.5-15.0 [facility] Comment on above: Performed By: #### L [id number] ####[employer] Operator: NIEVES RUIZ ([phone])[facility] [address] Hematocrit (Bld) [Volume fraction] 35.2 % Normal 35.0-47.0 [facility] Comment on above: Performed By: #### L [id number] ####[employer] Operator: NIEVES RUIZ ([phone])[facility])[address] [place] [address] Hemoglobin (Bld) [Mass/Vol] 11.6 g/dL Low 11.7-16.0 [facility] Comment on above: Performed By: #### L [id number] ####[employer] Operator: NIEVES RUIZ ([phone])[facility])[address] [place] [address] IMMATURE GRANS % 0.5 % Normal 0.0-2.0 [facility] Comment on above: Performed By: #### L [id number] ####[employer] Operator: NIEVES RUIZ ([phone])[facility])[address] [place] [address] IMMATURE GRANS ABSOLUTE 0.1 10*3/uL High <0.1 [facility] Comment on above: Performed By: #### L [id number] ####[employer] Operator: NIEVES RUIZ ([phone])[facility])[address] [place] [address] Lymphocytes (Bld) [#/Vol] 0.4 10*3/uL Low 1.0-4.3 [facility] Comment on above: Performed By: #### L [id number] ####[employer] Operator: NIEVES RUIZ ([phone])[facility])[address] [place] [address] Lymphocytes/100 WBC (Bld) 2.2 % Low 15.0-45.0 [facility] Comment on above: Performed By: #### L [id number] ####[employer] Operator: NIEVES RUIZ ([phone])[facility])[address] [place] [address] MCH (RBC) [Entitic mass] 30.0 pg Normal 26.0-34.0 [facility] Comment on above: Performed By: #### L [id number] ####[employer] Operator: NIEVES RUIZ ([phone])[facility])[address] [place] [address] MCHC 33.0 % Normal 30.5-36.0 [facility] Comment on above: Performed By: #### L [id number] ####[employer] Operator: NIEVES RUIZ ([phone])[facility])[address] [place] [address] MCV (RBC) [Entitic vol] 91.0 fL Normal 77.0-99.0 [facility] Comment on above: Performed By: #### L [id number] ####[employer] Operator: NIEVES RUIZ ([phone])[facility])[address] [place] [address] Monocytes (Bld) [#/Vol] 0.7 10*3/uL Normal 0.0-0.9 [facility] Comment on above: Performed By: #### L [id number] ####[employer] Operator: NIEVES RUIZ ([phone])[facility])[address] [place] [address] Monocytes/100 WBC (Bld) 4.4 % Low 5.0-13.0 [facility] Comment on above: Performed By: #### L [id number] ####[employer] Operator: NIEVES RUIZ ([phone])[facility])[address] [place] [address] NEUTROPHILS ABSOLUTE 15.7 10*3/uL High 1.8-7.5 [facility] Comment on above: Performed By: #### L [id number] ####[employer] Operator: NIEVES RUIZ ([phone])[facility])[address] [place] [address] Neutrophils/100 WBC (Bld) 92.7 % High 38.0-82.0 [facility] Comment on above: Performed By: #### L [id number] ####[employer] Operator: NIEVES [id number])[facility] ([facility])[address] [place] [address] NRBC 0.0 /100 WBCs Normal 0.0-2.0 [facility] Comment on above: Performed By: #### L [id number] ####Numer[employer] Control [employer] Operator: NIEVES RUIZ ([phone])[facility] ([facility])[address] [place] [address] Platelet mean volume (Bld) [Entitic vol] 10.8 fL Normal 9.0-12.7 [facility] Comment on above: Performed By: #### L [id number] ####[employer] Operator: NIEVES RUIZ ([phone])[facility] ([facility])[address] [place] [address] Platelets (Bld) [#/Vol] 336 10*3/uL Normal 140-440 [facility] Comment on above: Performed By: #### L [id number] ####[employer] Operator: NIEVES RUIZ ([phone])[facility] ([facility])[address] [place] [address] RBC (Bld) [#/Vol] 3.87 10*6/uL Normal 3.80-5.20 [facility] Comment on above: Performed By: #### L [id number] ####[employer] Operator: NIEVES RUIZ ([phone])[facility])[address] [place] [address] WBC (Bld) [#/Vol] 16.9 10*3/uL High 3.6-10.7 [facility] Comment on above: Performed By: #### L [id number] ####[employer] Operator: NIEVES RUIZ ([phone])[facility])[address] [place] [address] CKon 05-11-2025 CK [Catalytic activity/Vol] 47 U/L Normal 30-185 [facility] Comment on above: Performed By: #### L [id number], LAB62, [id number], [id number], LAB17 ####[employer] Operator: NIEVES RUIZ ([phone])[facility] ([facility])[address] [place] [address] CK [Catalytic activity/Vol]o n 05-11-2025 Interpretation and review of laboratory results Normal [facility] COMPLETE URINALYSIS WITH REF RONAN TO CULTUREon 05-11-2025 BACTERIA (#/HPF) IN URINE Many Abnormal Negative [facility] Comment on above: Performed By: #### L [id number] ####[employer] Operator: NIEVES RUIZ ([phone])[facility] ([facility])[address] [place] [address] BILIRUBIN, TOTAL PRESENCE IN URINE Negative Normal Negative [facility] Comment on above: Performed By: #### L [id number] ####[employer] Operator: NIEVES RUIZ ([phone])[facility] ([facility])[address] [place] [address] Clarity (U) Extra Turbid Abnormal [facility] Comment on above: Performed By: #### L [id number] ####[employer] Operator: NIEVES RUIZ ([phone])[facility] ([facility])[address] [place] [address] Color (U) Yellow Normal Lt. Yellow [facility] Comment on above: Performed By: #### L [id number] ####[employer] Operator: NIEVES RUIZ ([phone])[facility] ([facility])[address] [place] [address] Glucose (U) [Mass/Vol] 500 mg/dL Abnormal Nallely l (<70) [facility] Comment on above: Performed By: #### L [id number] ####[employer] Operator: NIEVES RUIZ ([phone])[facility] ([facility])[address] [place] [address] HEMOGLOBIN PRESENCE IN URINE Negative Normal Negative [facility] Comment on above: Performed By: #### L [id number] ####[employer] Operator: NIEVES RUIZ ([phone])[facility] ([facility])[address] [place] [address] [place] HYALINE CASTS (#/LPF) IN URINE SEDIMENT BY MICROSCOPY Negative Normal Negative [facility] Comment on above: Performed By: #### L [id number] ####[employer] Operator: NIEVES RUIZ ([phone])[facility])[address] [place] [address] Ketones Ql (U) 10 mg/dL Abnormal Negative [facility] Comment on above: Performed By: #### L [id number] ####[employer] Operator: NIEVES RUIZ ([phone])[facility] ([facility])[address] [place] [address] LEUKOCYTE ESTERASE PRESENCE IN URINE BY TEST STRIP 500 Rad/uL Abnormal Negative [facility] Comment on above: Performed By: #### L [id number] ####[employer] Operator: NIEVES RUIZ ([phone])[facility] ([facility])[address] [place] [address] [place] MUCUS (#/LPF) IN URINE SEDIMENT Few Normal Negative [facility] Comment on above: Performed By: #### L [id number] ####[employer] Operator: NIEVES RUIZ ([phone])[facility] ([facility])[address] [place] [address] NITRITE PRESENCE IN URINE Negative Normal Negative [facility] Comment on above: Performed By: #### L [id number] ####[employer] Operator: NIEVES RUIZ ([phone])[facility] ([facility])[address] [place] [address] pH (U) 8.0 [pH] Normal 5.0-8.0 [facility] Comment on above: Performed By: #### L [id number] ####[employer] Operator: NIEVES RUIZ ([phone])[facility] ([facility])[address] [place] [address] [place] Protein (U) [Mass/Vol] 300 mg/dL Abnormal Negative [facility] Comment on above: Performed By: #### L [id number] ####[employer] Operator: NIEVES RUIZ ([phone])[facility])[address] RBC (#/HPF) IN URINE SEDIMENT 26-50 Abnormal 0-2 [facility] Comment on above: Performed By: #### L [id number] ####[employer] Operator: NIEVES RUIZ ([phone])[facility])[address] [place] [address] Specific gravity (U) [Rel density] 1.020 Normal 1.005-1.030 [facility] Comment on above: Result Comment: SUNG Bryan COMMENTS:This specimen has been reflexed to urine culture. Performed By: #### L [id number] ####[employer] Operator: NIEVES RUIZ ([phone])[facility])[address] [place] [address] SQUAMOUS EPITHELIAL CELLS (#/HPF) IN URINE SEDIMENT 0-2 Normal 3-5 [facility] Comment on above: Performed By: #### L [id number] ####[employer] Operator: NIEVES RUIZ ([phone])[facility])[address] [place] [address] UROBILINOGEN (MG/DL) IN URINE 3 mg/dL Abnormal Normal (0-1) [facility] Comment on above: Performed By: #### L [id number] ####[employer] Operator: NIEVES RUIZ ([phone])[facility])[address] [place] [address] WBC (LEUKOCYTE) (#/HPF) IN URINE SEDIMENT >100 Abnormal 0-5 [facility] Comment on above: Performed By: #### L [id number] ####[employer] Operator: NIEVES RUIZ ([phone])[facility])[address] [place] [address] COMPREHENSIVE METABOLIC PANE Derek 05-11-2025 Albumin [Mass/Vol] 2.1 g/dL Low 3.4-4.8 [facility] Comment on above: Performed By: #### L [id number], LAB17, [id number] ####[employer] Operator: NIEVES RUIZ ([id number])[facility])[address] [place] [address] ALP [Catalytic activity/Vol] 68 U/L Normal 40-150 [facility] Comment on above: Performed By: #### Wayne CAICEDO, LAB17, [id number] ####[employer] Operator: NIEVES RUIZ ([phone])[facility] ([facility])[address] [place] [address] ALT [Catalytic activity/Vol] U/L Normal <30 [facility] Comment on above: Performed By: #### Wayne CAICEDO, LAB17, [id number] ####[employer] Operator: NIEVES RUIZ ([phone])[facility] ([facility])[address] [place] [address] Anion gap [Moles/Vol] 9 mmol/L Normal 3-13 [facility] Comment on above: Performed By: #### Wayne CAICEDO, LAB17, [id number] ####[employer] Operator: NIEVES RUIZ ([phone])[facility] ([facility])[address] [place] [address] AST [Catalytic activity/Vol] 15 U/L Normal <34 [facility] Comment on above: Performed By: #### Wayne CAICEDO, LAB17, [id number] ####[employer] Operator: NIEVES RUIZ ([phone])[facility] ([facility])[address] [place] [address] Bilirubin [Mass/Vol] 1.0 mg/dL Normal <1.2 [facility] Comment on above: Performed By: #### Wayne CAICEDO, LAB17, [id number] ####[employer] Operator: NIEVES RUIZ ([id number])[facility] ([facility])[address] [place] [address] Calcium [Mass/Vol] 8.6 mg/dL Low 8.8-10.0 [facility] Comment on above: Performed By: #### Wayne HERNANDEZ21, LAB17, [id number] ####[employer] Operator: NIEVES RUIZ ([phone])[facility] ([facility])[address] [place] [address] Chloride [Moles/Vol] 108 mmol/L High 98-107 [facility] Comment on above: Performed By: #### L [id number], LAB17, [id number] ####Numerical Control [employer] Press Operator: NIEVES RUIZ ([phone])[facility])[address] [place] [address] CO2 [Moles/Vol] 21 mmol/L Low 23-31 [facility] Comment on above: Performed By: #### L [id number], LAB17, [id number] ####Numer[employer] Operator: NIEVES RUIZ ([phone])[facility])[address] [place] [address] Creatinine [Mass/Vol] 0.92 mg/dL Normal 0.57-1.11 [facility] Comment on above: Performed By: #### Wayne HERNANDEZ21, LAB17, [id number] ####Numer[employer] Operator: NIEVES RUIZ ([phone])[facility])[address] [place] [address] GLOMERULAR FILTRATION RATE ML/MIN/1.73 SQ M.PREDICTED 67.1 mL/min/1.73m*2 Normal >60.0 [facility] Comment on above: Result Comment: Calc ulation based on the Chronic Kidney Disease Epidemiology Collaboration (CKD-EPI) equation refit without adjustment for race Performed By: #### L [id number], LAB17, [id number] ####Numer[employer] Operator: NIEVES RUIZ ([phone])[facility])[address] [place] [address] Glucose [Mass/Vol] 176 mg/dL High 82-115 [facility] Comment on above: Performed By: #### L [id number], LAB17, [id number] ####Numerical Control [employer] Operator: NIEVES RUIZ ([phone])[facility])[address] [place] [address] Potassium [Moles/Vol] 3.0 mmol/L Low 3.5-5.1 [facility] Comment on above: Result Comment: [facility] potassium values may be up to 0.5 mmol/L lower than serum values. Performed By: #### L [id number], LAB17, [id number] ####Numerical Control Drill Press Operator: NIEVSE RUIZ ([phone])[facility] ([facility])[address] [place] [address] Protein [Mass/Vol] 6.5 g/dL Normal 6.4-8.3 [facility] Comment on above: Performed By: #### L [id number], LAB17, [id number] ####[employer] Operator: NIEVES RUIZ ([phone])[facility] ([facility])[address] [place] [address] Sodium [Moles/Vol] 138 mmol/L Normal 136-145 [facility] Comment on above: Performed By: #### L [id number], LAB17, [id number] ####Numer[employer] Control Drill Press Operator: NIEVES RUIZ ([phone])[facility])[address] [place] [address] Urea nitrogen [Mass/Vol] 20 mg/dL Normal 9-23 [facility] Comment on above: Performed By: #### L [id number], LAB17, CID150 ####Numer[employer] Operator: NIEVES RUIZ ([phone])[facility] ([facility])[address] [place] [address] Albumin [Mass/Vol] 2.2 g/dL Low 3.4-4.8 [facility] Comment on above: Performed By: #### L [id number], LAB62, IJJ619, GVH912, LAB17 ####[employer] Operator: NIEVES RUIZ ([phone])[facility] ([facility])[address] [place] [address] ALP [Catalytic activity/Vol] 77 U/L Normal 40-150 [facility] Comment on above: Performed By: #### L [id number], LAB62, MAO495, BIJ369, LAB17 ####[employer] Operator: NIEVES RUIZ ([phone])[facility])[address] [place] [address] ALT [Catalytic activity/Vol] U/L Normal <30 [facility] Comment on above: Performed By: #### L [id number], LAB62, ZRG598, SWW058, LAB17 ####Numer[employer] Control [employer] Operator: NIEVES RUIZ ([phone])[facility] ([facility])[address] [place] [address] Anion gap [Moles/Vol] 14 mmol/L High 3-13 [facility] Comment on above: Performed By: #### L [id number], LAB62, GXR336, OEV566, LAB17 ####Numerical [employer] Operator: NIEVES RUIZ ([phone])[facility] ([facility])[address] [place] [address] AST [Catalytic activity/Vol] 16 U/L Normal <34 [facility] Comment on above: Performed By: #### L [id number], LAB62, GVD779, YCY745, LAB17 ####Numer[employer] Operator: NIEVES RUIZ ([phone])[facility] ([facility])[address] [place] [address] Bilirubin [Mass/Vol] 1.3 mg/dL High <1.2 [facility] Comment on above: Performed By: #### L [id number], LAB62, TDO016, XBQ012, LAB17 ####Numer[employer] Control [employer] Operator: NIEVES RUIZ ([phone])[facility] ([facility])[address] [place] [address] Calcium [Mass/Vol] 8.5 mg/dL Low 8.8-10.0 [facility] Comment on above: Performed By: #### L [id number], LAB62, GJC889, AWB339, LAB17 ####Numer[employer] Operator: NIEVES RUIZ ([phone])[facility] ([facility])[address] [place] [address] [place] Chloride [Moles/Vol] 103 mmol/L Normal 98-107 [facility] Comment on above: Performed By: #### L [id number], LAB62, EBS037, IZY093, LAB17 ####Numer[employer] Operator: NIEVES RUIZ ([phone])[facility] ([facility])[address] [place] [address] [place] CO2 [Moles/Vol] 18 mmol/L Low 23-31 [facility] Comment on above: Performed By: #### L [id number], LAB62, HAK953, QDI245, LAB17 ####Numer[employer] Control [employer] Operator: NIEVES RUIZ ([phone])[facility])[address] [place] [address] Creatinine [Mass/Vol] 1.16 mg/dL High 0.57-1.11 [facility] Comment on above: Performed By: #### L [id number], LAB62, NBF642, YLR796, LAB17 ####Numer[employer] Operator: NIEVES RUIZ ([phone])[facility])[address] [place] [address] GLOMERULAR FILTRATION RATE ML/MIN/1.73 SQ M.PREDICTED 50.8 mL/min/1.73m*2 Low >60.0 [facility] Comment on above: Result Comment: Calc ulation based on the Chronic Kidney Disease Epidemiology Collaboration (CKD-EPI) equation refit without adjustment for race Performed By: #### L [id number], LAB62, NCG958, NSJ406, LAB17 ####Numer[employer] Control Drill Press Operator: NIEVES RUIZ ([phone])[facility])[address] [place] [address] Glucose [Mass/Vol] 399 mg/dL High 82-115 [facility] Comment on above: Performed By: #### L [id number], LAB62, TLB839, EWE419, LAB17 ####Numer[employer] Operator: NIEVES RUIZ ([phone])[facility])[address] [place] [address] Potassium [Moles/Vol] 3.4 mmol/L Low 3.5-5.1 [facility] Comment on above: Result Comment: [facility] potassium values may be up to 0.5 mmol/L lower than serum values. Performed By: #### L [id number], LAB62, PGM821, ZLL475, LAB17 ####Numerical Control [employer] Operator: NIEVES RUIZ ([phone])[facility])[address] [place] [address] Protein [Mass/Vol] 6.8 g/dL Normal 6.4-8.3 [facility] Comment on above: Performed By: #### L [id number], LAB62, JYL255, PQN788, LAB17 ####Numer[employer] Operator: NIEVES RUIZ ([phone])[facility] ([facility])[address] [place] [address] Sodium [Moles/Vol] 135 mmol/L Low 136-145 [facility] Comment on above: Performed By: #### L [id number], LAB62, SOR411, DOX626, LAB17 ####Numer[employer] Operator: NIEVES RUIZ ([phone])[facility] ([facility])[address] [place] [address] Urea nitrogen [Mass/Vol] 21 mg/dL Normal 9-23 [facility] Comment on above: Performed By: #### L [id number], LAB62, CPE372, IDN143, LAB17 ####Numer[employer] Operator: NIEVES RUIZ ([phone])[facility] ([facility])[address] [place] [address] Comprehensive metabolic 1998 panelon 05-11-2025 Albumin [Mass/Vol] 2.2 g/dL Low 3.4 - 4.8 g/dL [facility] ALP [Catalytic activity/Vol] 77 U/L 40 - 150 U/L [facility] ALT [Catalytic activity/Vol] U/L NINF - 30 U/L [facility] Anion gap [Moles/Vol] 14 mmol/L High 3 - 13 mmol/L [facility] AST [Catalytic activity/Vol] 16 U/L NINF - 34 U/L [facility] Bilirubin [Mass/Vol] 1.3 mg/dL High NINF - 1.2 mg/dL [facility] Calcium [Mass/Vol] 8.5 mg/dL Low 8.8 - 10. 0 mg/dL [facility] Chloride [Moles/Vol] 103 mmol/L 98 - 10 7 mmol/L [facility] CO2 [Moles/Vol] 18 mmol/L Low 23 - 31 mmol/L [facility] Creatinine [Mass/Vol] 1.16 mg/dL High 0.57 - 1.11 mg/dL [facility] GFR/1.73 sq M.predicted (S/P/Bld) [Vol rate/Area] 50.8 mL/min Low - PINF [facility] Glucose [Mass/Vol] 399 mg/dL High 82 - 115 mg/dL [facility] Interpretation and review of laboratory results Abnormal [facility] Potassium [Moles/Vol] 3.4 mmol/L Low 3.5 - 5.1 mmol/L [facility] Protein [Mass/Vol] 6.8 g/dL 6.4 - 8.3 g/dL [facility] Sodium [Moles/Vol] 135 mmol/L Low 136 - 145 mmol/L [facility] Urea nitrogen [Mass/Vol] 21 mg/dL 9 - 23 mg/dL [facility] ED Provider Noteon ED Provider Note Normal [facility] HEMOGLOBIN A1Con 05-11-2025 Glucose [Mass/Vol] 163 mg/dL Normal [facility] Comment on above: Result Comment: SUNG Bryan COMMENTS:If not done within the last 3 oflOdA4o values of 5.7-6.4 percent indicate an increased risk for developing diabetes mellitus. HbA1c values greater than or equal to 6.5 percent are diagnostic of diabetes mellitus. For diagnosis of diabetes in individuals without unequivocal hyperglycemia, results should be confirmed by repeat testing. Performed By: #### L AB90 ####[employer] Operator: NIEVES RUIZ ([phone])[address] HEMOGLOBIN A1C 7.3 %HbA1C High <5.7 [facility] Comment on above: Result Comment: Norm al less than 5.7%Prediabetes 5.7% to 6.4%Diabetes 6.5% or higher--HgbA1C levels may not be accurate in patients who have renal disease, received recent blood transfusions, are anemic, or who have dyshemoglobinemia. Performed By: #### L AB90 ####Numer[employer] Operator: NIEVES RUIZ ([phone])[facility])[address] [place] [address] LACTIC ACID WITH REFLEXon Lactate [Moles/Vol] 2.1 mmol/L Normal 0.5-2.2 [facility] Comment on above: Performed By: #### L [id number] ####Numer[employer] Operator: NIEVES RUIZ ([phone])[facility] ([facility])[address] [place] [address] Lactate [Moles/Vol] 3.1 mmol/L High 0.5-2.2 [facility] [employer] Comment on above: Performed By: #### L [id number] ####Numer[employer] Operator: NIEVES RUIZ ([phone])[facility] ([facility])[address] [place] [address] Laboratory - Chemistry and C hemistry - challengeon 05-11-2025 Glucose [Mass/Vol] 176 mg/dL High 70 - 100 mg/dL [facility] CK [Catalytic activity/Vol] 47 U/L 30 - 185 U/L [facility] Glucose [Mass/Vol] 273 mg/dL High 70 - 100 mg/dL [facility] Magnesium [Mass/Vol] 1.4 mg/dL Low 1.6 - 2 .6 mg/dL [facility] Beta hydroxybutyrate [Mass/Vol] 9.6 mg/dL High NINF - 2.8 mg/dL [facility] Lactate [Moles/Vol] 3.1 mmol/L High 0.5 - 2. 2 mmol/L [facility] Laboratory - Chemistry and C hemistry - challengeOrdered By: Ebony Thompson on 05-11-2025 Base excess Calc (BldV) [Moles/Vol] -0.9000 mmol/L -3.0 - 3.0 mmol/L [facility] CO2 (BldV) [Partial pressure] 31 mm[Hg] Low [facility] CO2 [Moles/Vol] 23 mmol/L Low 24.0 - 28.0 mmol/L [facility] HCO3 (Bld) [Moles/Vol] 22 mmol/L Low 23.0 - 27.0 mmol/L [facility] Oxygen (BldV) [Partial pressure] 47.3 mm[Hg] mm Hg [facility] pH (BldV) 7.469 [pH] High 7.330 - 7.430 [facility] Laboratory - Hematology and Cell countsOrdered By: Ebony Thompson on 05-11-2025 Hemoglobin (Bld) [Mass/Vol] 11.5 g/dL 7.0 g/dl [facility] MAGNESIUMon 05-11-2025 Magnesium [Mass/Vol] 2.0 mg/dL Normal 1.6-2.6 [facility] Comment on above: Result Comment: SUNG R COMMENTS:Higher values can be expected in females during menses. Performed By: #### L [id number], LAB17, PNN114 ####Numer[employer] Control [employer] Operator: NIEVES RUIZ ([phone])[facility])[address] [place] [address] Magnesium [Mass/Vol] 1.4 mg/dL Low 1.6-2.6 [facility] Comment on above: Result Comment: ESEE R COMMENTS:Higher values can be expected in females during menses. Performed By: #### L [id number], LAB62, BVL454, HZD545, LAB17 ####Numer[employer] Operator: NIEVES RUIZ ([phone])[facility])[address] [place] [address] Magnesium [Mass/Vol]on 05-11 Interpretation and review of laboratory results Abnormal [facility] No Panel Informationon 05-11 Interpretation and review of laboratory results Abnormal [facility] Extra Tube Hold for add-ons. [facility] Interpretation and review of laboratory results Abnormal [facility] Interpretation and review of laboratory results Abnormal [facility] Interpretation and review of laboratory results Abnormal [facility] No Panel InformationOrdered By: Ebony Thompson on 05-11-[address] [facility] Interpretation and review of laboratory results Abnormal [facility] Source Of Oxygen None (Room Air) [facility] PHOSPHORUSon 05-11-2025 Phosphate [Mass/Vol] 2.1 mg/dL Low 2.3-4.7 [facility] Comment on above: Performed By: #### L [id number], LAB62, UIF805, ZIV673, LAB17 ####Numer[employer] Operator: NIEVES RUIZ ([phone])[facility])[address] [place] [address] PROCALCITONIN TESTon 025 PROCALCITONIN 0.49 ng/mL High <0.07 [facility] [employer] Comment on above: Result Comment: SUNG R COMMENTS:PCT <0.50 = Low risk of severe sepsis and/or septic shock.PCT >2.00 = High risk of severe sepsis and/or septic shock. Performed By: #### L [id number], LAB17, FOC199 ####Numer[employer] Control [employer] Operator: NIEVES RUIZ ([phone])[facility])[address] [place] [address] Phosphate [Moles/Vol]on 04-23 Interpretation and review of laboratory results Abnormal [facility] Phosphate [Mass/Vol] 2.1 mg/dL Low 2.3 - 4 .7 mg/dL [facility] URINE CULTUREon 05-11-2025 Bacteria identified Cx Nom (U) Normal [facility] Comment on above: Performed By: #### L [id number] ####Numerical Control Drill Press Operator: NIEVES RUIZ ([phone])[facility] ([facility])[address] [place] [address] Urinalysis complete panel (U )Ordered By: Carol Ann Gore on 05-11-2025 Bacteria LM.HPF (Urine sed) [#/Area] Many Abnormal Negative /HPF [facility] Bilirubin Ql (U) Negative Negative mg/dL [facility] Clarity (U) Extra Turbid Abnormal Clear [facility] Color (U) Yellow Lt. Yellow [facility] Epithelial cells.squamous LM.HPF (Urine sed) [#/Area] 0-2 [facility] Glucose Ql (U) 500 mg/dL Abnormal Normal (<70) [facility] Hemoglobin Ql (U) Negative Negative mg/dL [facility] Hyaline casts Auto (Urine sed) [#/Area] Negative Negative /LPF [facility] Interpretation and review of laboratory results Abnormal [facility] Ketones (U) [Mass/Vol] 10 mg/dL Abnormal [facility] Leukocyte esterase Test strip Ql (U) 500 Abnormal Negative Rad/uL [facility] Mucus LM.HPF (Urine sed) [#/Area] Few Negative /LPF [facility] Nitrite Ql (U) Negative Negative [facility] pH (U) 8.0 [pH] 5.0 - 8.0 pH [facility] Protein (U) [Mass/Vol] 300 mg/dL Abnormal [facility] RBC LM.HPF (Urine sed) [#/Area] 26-50 Abnormal [facility] Specific gravity (U) [Rel density] 1.02 1.005 - 1.030 [facility] Urobilinogen (U) [Mass/Vol] 3 mg/dL Abnormal Normal (0-1) [facility] WBC LM.HPF (Urine sed) [#/Area] /[HPF] Abnormal [facility] Vital signsOrdered By: Ebony Thompson on 05-11-2025 Oxygen saturation in Venous blood 83.1 % [address] 01-20-2025 36 Faxed to PCP office. Normal [facility] 36on 01-19-2025 36 Cancelled appointments. Normal [facility] [address] 01-14-2025 36 Request for refill received from pharmacy Last appointment: 11/25/2024 Next appointment: 01/26/2025 Pharmacy confirmed: [x] Yes [] No Normal [place] [address]on 01-03-2025 36 Patient called with negative PET scan. With this and negative biopsy unlikely recurrent endometrial cancer. Will send to her primary care physician, possible pulmonary consult. Normal [facility] PET+CT Bone from skull base to mid-thigh W 18F-NaF Brittany 2025 No convincing FDG avid malignancy. Comment: Please note this report has been produced using speech recognition software and may contain errors related to that system including errors in grammar, punctuation, and spelling as well as words and phrases that may be inappropriate. If there are any questions or concerns please feel free to contact the dictating provider for clarification Report Dictated on Electronically Signed By: Jorge Alberto Mathews MD Electronically Signed Date/Time: 2025 4:43 PM [facility] [employer] Patient Name: DAMEON POTTER : 1955 Exam Date/Time: 2025 10:38 Procedure: PET/CT SKULL BASE TO MID THIGH Ordering Provider: STUBBS STEPHEN Reason For Exam: Uterine/cervical cancer, monitor; abnormal CT scan, lung nodules and jazmin disease History: Endometrial cancer monitoring. Abnormal CT. Following the intravenous administration of 11.7 mCi of FDGtracer a PET scan of the [place] was acquired per protocol. Contemporaneously, noncontrast axial CT images were obtained using low dose technique. The images were reconstructed in three orthogonal planes and digitally coregistered. 3-D imaging created and reviewed on independent 3-D workstation. The CT data was used for attenuation correction as well. Dose reduction was employed with automated exposure control. Comparisons available: CT 11/11/2024 Quality: There is some limitation related to motion. Brain: Poorly evaluated limited sections with this technique. NECK AND CHEST: No convincing significant hypermetabolic lung nodules or lymph nodes. Note made of coronary calcifications, cardiac enlargement. ABDOMEN AND PELVIS: No convincing significant hypermetabolic lymph nodes or masses. No convincing significant increased activity associated with retroperitoneal mass which was recently biopsied. Suspected peristalsis related bowel activity. MUSCULOSKELETAL: No convincing malignant appearing increased activity within bone. [facility] Jorge Alberto Mathews MD - 2025 Patient Name: DAMEON POTTER : 1955 Exam Date/Time: 2025 10:38 Procedure: PET/CT SKULL BASE TO MID THIGH Ordering Provider: STUBBS STEPHEN Reason For Exam: Uterine/cervical cancer, monitor; abnormal CT scan, lung nodules and jazmin disease History: Endometrial cancer monitoring. Abnormal CT. Following the intravenous administration of 11.7 mCi of FDGtracer a PET scan of the [place] was acquired per protocol. Contemporaneously, noncontrast axial CT images were obtained using low dose technique. The images were reconstructed in three orthogonal planes and digitally coregistered. 3-D imaging created and reviewed on independent 3-D workstation. The CT data was used for attenuation correction as well. Dose reduction was employed with automated exposure control. Comparisons available: CT 11/11/2024 Quality: There is some limitation related to motion. Brain: Poorly evaluated limited sections with this technique. NECK AND CHEST: No convincing significant hypermetabolic lung nodules or lymph nodes. Note made of coronary calcifications, cardiac enlargement. ABDOMEN AND PELVIS: No convincing significant hypermetabolic lymph nodes or masses. No convincing significant increased activity associated with retroperitoneal mass which was recently biopsied. Suspected peristalsis related bowel activity. MUSCULOSKELETAL: No convincing malignant appearing increased activity within bone. IMPRESSION: No convincing FDG avid malignancy. Comment: Please note this report has been produced using speech recognition software and may contain errors related to that system including errors in grammar, punctuation, and spelling as well as words and phrases that may be inappropriate. If there are any questions or concerns please feel free to contact the dictating provider for clarification Report Dictated on Electronically Signed By: Jorge Alberto Mathews MD Electronically Signed Date/Time: 2025 4:43 PM EDT [facility] Radiology Study observation (narrative) [facility] PET+CT Bone from skull base to mid-thigh W 18F-NaF IVOrdered By: Jorge Alberto Mathews on 2025 [facility] [employer] Work Phone: 36on 01-01-2025 36 Normal [facility] 36on 12-23-2024 36 Normal [facility] [address] bx[address] will scheudle PET Normal [facility] CBC (HEMOGRAM)on 12-22-2024 Erythrocyte distribution width (RBC) [Ratio] 15.1 % High 11.5-15.0 [facility] Comment on above: Performed By: #### L [id number] ####[employer] Operator: NIEVES RUIZ ([phone])[address] Hematocrit (Bld) [Volume fraction] 33.4 % Low 35.0-47.0 [facility] Comment on above: Performed By: #### L AB294 ####[employer] Operator: NIEVES [id number])[address] Hemoglobin (Bld) [Mass/Vol] 11.1 g/dL Low 11.7-16.0 [facility] Comment on above: Performed By: #### L AB294 ####[employer] Operator: NIEVES [id number])[facility] ([facility])[address] [place] [address] MCH (RBC) [Entitic mass] 29.4 pg Normal 26.0-34.0 [facility] Comment on above: Performed By: #### L AB294 ####[employer] Operator: NEIVES RUIZ ([phone])[facility] ([facility])[address] [place] [address] MCHC 33.2 % Normal 30.5-36.0 [facility] Comment on above: Performed By: #### L AB294 ####[employer] Operator: NIEVES RUIZ ([phone])[facility] ([facility])[address] [place] [address] MCV (RBC) [Entitic vol] 88.6 fL Normal 77.0-99.0 S [facility] Comment on above: Performed By: #### L AB294 ####Numer[employer] Operator: NIEVES RUIZ ([phone])[facility] ([facility])[address] [place] [address] Platelet mean volume (Bld) [Entitic vol] 12.2 fL Normal 9.0-12.7 [facility] Comment on above: Performed By: #### L AB294 ####[employer] Operator: NIEVES RUIZ ([phone])[facility] ([facility])[address] [place] [address] Platelets (Bld) [#/Vol] 219 10*3/uL Normal 140-440 [facility] Comment on above: Performed By: #### L AB294 ####[employer] Operator: NIEVES RUIZ ([phone])[facility] ([facility])[address] [place] [address] RBC (Bld) [#/Vol] 3.77 10*6/uL Low 3.80-5.20 [facility] Comment on above: Performed By: #### L AB294 ####[employer] Operator: NIEVES RUIZ ([phone])[facility] ([facility])[address] [place] [address] WBC (Bld) [#/Vol] 6.0 10*3/uL Normal 3.6-10.7 [facility] Comment on above: Performed By: #### L AB294 ####[employer] Operator: NIEVES RUIZ ([phone])[facility] ([facility] CBC panel Auto (Bld)on 12-22 Erythrocyte distribution width (RBC) [Ratio] 15.1 % High 11.5 - 15.0 % [facility] Hematocrit (Bld) [Volume fraction] 33.4 % Low 35.0 - 47.0 % [facility] Hemoglobin (Bld) [Mass/Vol] 11.1 g/dL Low 11.7 - 16.0 g/dL [facility] Interpretation and review of laboratory results Abnormal [facility] MCH (RBC) [Entitic mass] 29.4 pg 26. 0 - 34.0 pg [facility] MCHC (RBC) [Mass/Vol] 33.2 % 30.5 - 36.0 % [facility] MCV (RBC) [Entitic vol] 88.6 fL 77.0 - 99.0 fL [facility] Platelet mean volume (Bld) [Entitic vol] 12.2 fL 9.0 - 12.7 fL [facility] Platelets (Bld) [#/Vol] 219 10*3/uL 140 - 440 10*3/uL [facility] RBC (Bld) [#/Vol] 3.77 10*6/uL Low 3.80 - 5.2 0 10*6/uL [facility] WBC (Bld) [#/Vol] 6 10*3/uL 3.6 - 10.7 10*3/uL [facility] CT GUIDED BIOPSY ABDOMEN OR RETROPERITONEUMon 12-22-2024 CT GUIDED BIOPSY ABDOMEN OR RETROPERITONEUM Normal [facility] CT Guidance for biopsy of Re troperitoneumon 12-22-[address] guided biopsy of enlarged lower right retroperitoneal lymph node as discussed. Report Dictated on Electronically Signed By: Tha Hamm MD Electronically Signed Date/Time: 12/22/2024 11:15 AM [facility] Patient Name: DAMEON POTTER : 1955 Exam Date/Time: 12/22/2024 09:54 Procedure: CT GUIDED BIOPSY ABDOMEN OR RETROPERITONEUM Ordering Provider: STUBBS STEPHEN Reason For Exam: right para-aortic jazmin mass, hx uterine cancer Reasons for examination: Enlarged right-sided lymph node (anterior to psoas lateral to iliac vessels). After review of prior studies, patient interview and examination, the risks, benefits, and alternatives of the biopsy procedure and conscious sedation were discussed, and informed consent was obtained. Procedure was performed under local anesthesia and mild i.v. conscious sedation. An independent trained observer (nurse) monitored the patient during the procedure. The interservice time was [address] scans were obtained. Dose reduction was employed with automatic exposure control. The lymph node mass was localized. Following sterile preparation, draping, and local anesthetic administration, a guide needle was placed, through which biopsy was performed with 8 passes using an 18-gauge biopsy gun needle. Specimens were reviewed by cytology --- despite multiple passes, the tissue yielded scant. Post procedure CT scan demonstrated no evidence of significant intraperitoneal or subcapsular hemorrhage. The patient tolerated the procedure and there were no immediate complications. [facility] Tha Hamm MD - 12/22/2024 Patient Name: DAMEON POTTER : 1955 Exam Date/Time: 12/22/2024 09:54 Procedure: CT GUIDED BIOPSY ABDOMEN OR RETROPERITONEUM Ordering Provider: STUBBS STEPHEN Reason For Exam: right para-aortic jazmin mass, hx uterine cancer Reasons for examination: Enlarged right-sided lymph node (anterior to psoas lateral to iliac vessels). After review of prior studies, patient interview and examination, the risks, benefits, and alternatives of the biopsy procedure and conscious sedation were discussed, and informed consent was obtained. Procedure was performed under local anesthesia and mild i.v. conscious sedation. An independent trained observer (nurse) monitored the patient during the procedure. The interservice time was [address] scans were obtained. Dose reduction was employed with automatic exposure control. The lymph node mass was localized. Following sterile preparation, draping, and local anesthetic administration, a guide needle was placed, through which biopsy was performed with 8 passes using an 18-gauge biopsy gun needle. Specimens were reviewed by cytology --- despite multiple passes, the tissue yielded scant. Post procedure CT scan demonstrated no evidence of significant intraperitoneal or subcapsular hemorrhage. The patient tolerated the procedure and there were no immediate complications. IMPRESSION: 1. CT guided biopsy of enlarged lower right retroperitoneal lymph node as discussed. Report Dictated on Electronically Signed By: Tha Hamm MD Electronically Signed Date/Time: 12/22/2024 11:15 AM EDT [facility] Radiology Study observation (narrative) [facility] CT Guidance for biopsy of Re troperitoneumOrdered By: Tha Hamm on 12-22-2024 [facility] Work Phone: Laboratory - Coagulationon 0 12-22-2024 PT Coag (Bld) [Time] 10.9 s 9.0 - 1 2.0 s [facility] Nursing Noteon 12-22-2024 Nursing Note Discharge instructions given patient verbalizes understanding. IV discontinued, Bx. Site intact no complications. Patient wheeled out via wheelchair Normal [facility] Nursing Note Pt c/o nausea. Ginge r rick and crackers provided. Normal [facility] PROTHROMBIN TIMEon INR Coag (PPP) [Relative time] 1.0 {INR} Normal 0.9-1.1 [facility] Comment on above: Result Comment: Regan mmended Anticoagulant Therapy: SEE BELOW----- INR of 2.0 - 3.0 : - Prophylaxis of Venous Thrombosis (high-risk surgery) - Treatment of Venous Thrombosis - Treatment of Pulmonary Embolism (Includes tissue heart valves, Acute Myocardial Infarction to prevent systemic embolism, Valvular Heart Disease, and Atrial Fibrillation)----- INR of 2.5 - 3.5 : - Mechanical Prosthetic Valves (high risk) - If oral anticoagulant therapy is used to prevent Myocardial Infarction Performed By: #### L [id number] ####Numerical Control Drill Press Operator: NIEVES RUIZ ([phone])[facility] ([address] PT Coag (PPP) [Time] 10.9 s Normal 9.0-12.0 [facility] Comment on above: Performed By: #### L AB320 ####Numerical Control Drill Press Operator: NIEVES RUIZ ([phone])[facility] ([address] PT Coag (Bld) [Time]on 12-22 INR Coag (PPP) [Relative time] 1 {INR} 0.9 - 1.1 [facility] Comment on above: Recommended Anticoag ulant Therapy: SEE BELOW ----- INR of 2.0 - 3.0 : - Prophylaxis of Venous Thrombosis (high-risk surgery) - Treatment of Venous Thrombosis - Treatment of Pulmonary Embolism (Includes tissue heart valves, Acute Myocardial Infarction to prevent systemic embolism, Valvular Heart Disease, and Atrial Fibrillation) ----- INR of 2.5 - 3.5 : - Mechanical Prosthetic Valves (high risk) - If oral anticoagulant therapy is used to prevent Myocardial Infarction Interpretation and review of laboratory results [facility] [id number] 12-11-2024 [id number] [facility] 36on 12-11-2024 36 [facility] Progress Noteon 12-08-2024 Progress Note Normal [facility] Progress Note Child Caregiver Private Home was hong mims to the patient for exam. Patient accepted, medical driver in room during exam [facility] 36on 12-04-2024 36 [facility] Progress Noteon 11-25-2024 Progress Note Normal [facility] Progress Note Normal [facility] Progress Note Normal [facility] Progress Noteon 11-21-2024 Progress Note -Continue atorvastatin Normal [facility] Progress Note - stable - continue Celexa 20 units daily [facility] Progress Note -Continue brimonidine, timolol Normal [facility] Progress Note -11/02 TSH 3.03 -Continue levothyroxine Normal [facility] Progress Note -BGTs have improved, average 150 -11/02 A1C 12.9 -Continue Lispro to 15U with meals -Continue Lantus 28 units, and metformin ER 500mg daily -Accuchecks monitor trends -Hypoglycemia protocol in place [facility] Progress Note -11/10 Vitamin D: 26, patient likely not taking supplementation regularly -Continue daily supplement for now- 2000 units daily Normal [facility] Progress Note -BLE wrapped at time of exam -Unna boot treatments applied 11/17 -10 lbs weight gained since admission likely 2/2 lymphedema and improved oral intake -In-house wound care following patient while admitted Normal [facility] Progress Note - lost to follow up with gyne - will need follow up - reviewed with patient today Normal [facility] Progress Note Normal [facility] Progress Note -Overall controlled currently -Prior to admission on olmesartan, and carvedilol discontinued for now -Continue metoprolol -Has follow-up with [facility] Cardiology on 12/02 as above Normal [facility] Progress Note Normal [facility] Progress Note - has PRN albuterol - hasn't used it since admission Normal [facility] Progress Note -continue melatonin 5mg nightly Normal [facility] Progress Note Normal [facility] Progress Note -BIMS 05/06 - continuing to make improvements with Speech Therapy in area of cognition - Recommend outpatient follow up at the [facility] ([place] [facility]) for formal congitive testing Normal [facility] Progress Note Normal [facility] Progress Note - wound team started Bactrim 11/17-11/24 for bilateral LE cellulitis - both legs were very swollen and weeping per report Normal [facility] Progress Note Normal [facility] 36on 11-19-2024 36 Letter mailed to patient Normal [facility] Progress Noteon 11-18-2024 Progress Note Normal [facility] Progress Note Normal [facility] Progress Note Normal [facility] 36on 11-13-2024 36 Second attempt to reach patient no answer/unable to leave voicemail. Normal [facility] 36on 11-12-2024 36 Attempted to reach patient no answer/unable to leave voicemail. Normal [facility] CT Abdomen and Pelvis WO and W contrast Brittany 11-12-2024 There are multiple new irregular nodules within the lungs bilaterally measuring up to 13 mm in diameter within the left upper lobe. These are highly suspicious for pulmonary metastatic disease. PET/CT may be helpful for additional characterization. No lymphadenopathy seen within the chest. ABDOMEN AND PELVIS: The liver, gallbladder, spleen, pancreas, and adrenal glands appear within normal limits. There are a couple of tiny subcentimeter bilateral renal cysts. The abdominal aorta is normal in caliber. Scattered vascular calcification is noted. There is an enlarged lower retroperitoneal lymph node to the right of the aortic bifurcation measuring 2.3 cm in short axis, new when compared to the CT of the abdomen and pelvis from 12/04/2023. The urinary bladder appears grossly normal. The uterus has been removed. Postoperative changes consistent with gastric bypass are noted. No abnormal bowel wall thickening or dilatation is seen. There is no free air or free fluid within the abdomen or the pelvis. No lytic or blastic lesions are seen on the bone windows. IMPRESSION: There is an enlarged right lower retroperitoneal lymph node measuring 2.3 cm in short axis, new when compared to the study from 12/04/2023. The appearance is highly suspicious for recurrent malignancy given the patient's history of endometrial cancer. This node would probably be amenable to percutaneous biopsy under CT guidance if clinically desired. PET/CT may also be helpful for additional evaluation. Report Dictated on Electronically Signed By: Melo Luis MD Electronically Signed Date/Time: 11/12/2024 5:47 PM [facility] Patient Name: DAMEON POTTER : 1955 [id number] Exam Date/Time: 11/11/2024 08:29 Procedure: CT CHEST ABDOMEN PELVIS W CONTRAST Ordering Provider: LEACH RICHARD Reason For Exam: weight loss CT CHEST, ABDOMEN, AND PELVIS WITH CONTRAST CLINICAL INDICATION: Weight loss, history of endometrial cancer Serial, axial CT images were obtained through the chest, abdomen, and pelvis after intravenous contrast. Dose reduction was employed with automated exposure control. 75 milliliters of Isovue 370 contrast was given intravenously. Oral contrast was not given for this examination. Coronal and sagittal reformatted images were also made available for interpretation. COMPARISON: CT chest abdomen and pelvis dated 10/27/2020, CT abdomen and pelvis dated 12/04/2023 CHEST: No focal consolidation is seen within the lungs. There is no pleural effusion or pneumothorax. There are several somewhat irregular noncalcified nodules within the lungs bilaterally, the largest of which measures 13 mm in diameter within the anterior left upper lobe on image 126 of 376. These are new when compared to the study from 10/27/2020. There is no hilar, mediastinal, or axillary lymphadenopathy. The heart size is within normal limits. There is no pericardial effusion. The thoracic aorta appears normal in caliber. No lytic or blastic lesions are seen on the bone windows. [facility] Melo Luis MD - 11/12/2024 Patient Name: DAMEON POTTER : 1955 Exam Date/Time: 11/11/2024 08:29 Procedure: CT CHEST ABDOMEN PELVIS W CONTRAST Ordering Provider: LEACH RICHARD Reason For Exam: weight loss CT CHEST, ABDOMEN, AND PELVIS WITH CONTRAST CLINICAL INDICATION: Weight loss, history of endometrial cancer Serial, axial CT images were obtained through the chest, abdomen, and pelvis after intravenous contrast. Dose reduction was employed with automated exposure control. 75 milliliters of Isovue 370 contrast was given intravenously. Oral contrast was not given for this examination. Coronal and sagittal reformatted images were also made available for interpretation. COMPARISON: CT chest abdomen and pelvis dated 10/27/2020, CT abdomen and pelvis dated 12/04/2023 CHEST: No focal consolidation is seen within the lungs. There is no pleural effusion or pneumothorax. There are several somewhat irregular noncalcified nodules within the lungs bilaterally, the largest of which measures 13 mm in diameter within the anterior left upper lobe on image 126 of 376. These are new when compared to the study from 10/27/2020. There is no hilar, mediastinal, or axillary lymphadenopathy. The heart size is within normal limits. There is no pericardial effusion. The thoracic aorta appears normal in caliber. No lytic or blastic lesions are seen on the bone windows. IMPRESSION: There are multiple new irregular nodules within the lungs bilaterally measuring up to 13 mm in diameter within the left upper lobe. These are highly suspicious for pulmonary metastatic disease. PET/CT may be helpful for additional characterization. No lymphadenopathy seen within the chest. ABDOMEN AND PELVIS: The liver, gallbladder, spleen, pancreas, and adrenal glands appear within normal limits. There are a couple of tiny subcentimeter bilateral renal cysts. The abdominal aorta is normal in caliber. Scattered vascular calcification is noted. There is an enlarged lower retroperitoneal lymph node to the right of the aortic bifurcation measuring 2.3 cm in short axis, new when compared to the CT of the abdomen and pelvis from 12/04/2023. The urinary bladder appears grossly normal. The uterus has been removed. Postoperative changes consistent with gastric bypass are noted. No abnormal bowel wall thickening or dilatation is seen. There is no free air or free fluid within the abdomen or the pelvis. No lytic or blastic lesions are seen on the bone windows. IMPRESSION: There is an enlarged right lower retroperitoneal lymph node measuring 2.3 cm in short axis, new when compared to the study from 12/04/2023. The appearance is highly suspicious for recurrent malignancy given the patient's history of endometrial cancer. This node would probably be amenable to percutaneous biopsy under CT guidance if clinically desired. PET/CT may also be helpful for additional evaluation. Report Dictated on Electronically Signed By: Melo Luis MD Electronically Signed Date/Time: 11/12/2024 5:47 PM EDT [facility] CT Abdomen and Pelvis WO and W contrast IVOrdered By: Melo Luis on 11-12-[address] [facility] [address] CHEST ABDOMEN PELVIS W CO NTRASTon 11-12-2024 CT CHEST ABDOMEN PELVIS W CONTRAST Normal [facility] CT HEAD W AND WO IV CONTRAST on 11-12-2024 CT HEAD W AND WO IV CONTRAST Normal [facility] CT Head WO and W contrast IV on 11-12-2024 No acute intracrania l abnormality. No enhancing lesions. Report Dictated on Electronically Signed By: Curt Monsalve MD Electronically Signed Date/Time: 11/12/2024 3:42 PM EDT [facility] Patient Name: DAMEON POTTER : 1955 Exam Date/Time: 11/11/2024 08:31 Procedure: CT HEAD W AND WO IV CONTRAST Ordering Provider: LEACH RICHARD Reason For Exam: weight loss EXAMINATION: CT HEAD W AND WO IV CONTRAST CLINICAL HISTORY: Weight loss. Malignant neoplasm. Concern for metastatic disease. COMPARISON: None TECHNIQUE: Thin axial imaging of the head was performed with and without intravenous contrast. Dose reduction was employed with automated exposure control. FINDINGS: No mass or acute hemorrhage. No evidence of acute infarct. No abnormal parenchymal or leptomeningeal enhancement. Mild generalized brain parenchymal volume loss with normal caliber ventricles. Scattered patchy foci of white matter hypoattenuation, most likely mild chronic microvascular angiopathy. The skull, included paranasal sinuses and orbits are within normal limits. [facility] Curt Monsalve M D - 11/12/2024 Patient Name: DAMEON POTTER : 1955 Exam Date/Time: 11/11/2024 08:31 Procedure: CT HEAD W AND WO IV CONTRAST Ordering Provider: LEACH RICHARD Reason For Exam: weight loss EXAMINATION: CT HEAD W AND WO IV CONTRAST CLINICAL HISTORY: Weight loss. Malignant neoplasm. Concern for metastatic disease. COMPARISON: None TECHNIQUE: Thin axial imaging of the head was performed with and without intravenous contrast. Dose reduction was employed with automated exposure control. FINDINGS: No mass or acute hemorrhage. No evidence of acute infarct. No abnormal parenchymal or leptomeningeal enhancement. Mild generalized brain parenchymal volume loss with normal caliber ventricles. Scattered patchy foci of white matter hypoattenuation, most likely mild chronic microvascular angiopathy. The skull, included paranasal sinuses and orbits are within normal limits. IMPRESSION: No acute intracranial abnormality. No enhancing lesions. Report Dictated on Electronically Signed By: Curt Monsalve MD Electronically Signed Date/Time: 11/12/2024 3:42 PM EDT [facility] CT Head WO and W contrast IV Ordered By: Curt Monsalve on 11-12-2024 [facility] Work Phone: Progress Noteon 11-12-2024 Progress Note Normal [facility] Progress Note -Swelling noticeable today on exam, especially to LLE. Seen today by wound care AVIONICS SYSTEMS ENGINEER, awaiting orders from wound MARKETING ENGINEER per documentation -BLE follows with wound care center per patient -In-house wound care following patient while admitted Normal [facility] Progress Note Normal [facility] CT Abdomen and Pelvis WO and W contrast Brittany 11-11-2024 Radiology Study observation (narrative) Nikole Polanco alth CT Head WO and W contrast IV on 11-11-2024 Radiology Study observation (narrative) Nikole Polanco alth [id number] 11-10-2024 [id number] Patient Choice Patient Name: DAMEON POTTER Date of : 1955 Normal [facility] Progress Noteon 11-10-2024 Progress Note -Schedule melatonin 5mg nightly Normal [facility] Progress Note Normal [facility] Progress Note -BGTs remain elevate d -11/02 A1C 12.9 -Increase Lispro to 10U with meals -Continue Lantus 28 units -Could consider addition of metformin as could help with insulin resistance 2/2 to PCOS -Accuchecks monitor trends -Hypoglycemia protocol in place Normal [facility] Progress Note Normal [facility] Progress Noteon 11-08-2024 Progress Note Normal [facility] Progress Note - Continue Physical Therapy/ Occupational Therapy with goal to improve function Normal [facility] Progress Note -Continue atorvastatin Normal [facility] Progress Note - patient very upset about being in intermediate - will continue to work with her and family to determine best discharge - continue Celexa 20 units daily Normal [facility] Progress Note -11/02 TSH 3.03 -Continue levothyroxine Normal [facility] Progress Note -BGTs elevated since arrival to [facility] -11/02 A1C 12.9 -Continue Lispro 8U with meals, and increase Lantus from 24 to 28 units -Accuchecks monitor trends -Hypoglycemia protocol in place Normal [facility] Progress Note -Check Vitamin D level 11/10 -Continue daily supplement for now Normal [facility] Progress Note - long standing per chart Normal [facility] Progress Note - lost to follow up with gyne - disposition from [facility] not clear yet - will need follow up Normal [facility] Progress Note -Continue brimonidine, timolol Normal [facility] Progress Note Normal [facility] Progress Note -Overall controlled currently -Prior to admission on olmesartan, and carvedilol discontinued for now -Continue metoprolol -Has follow-up with [facility] Cardiology on 12/02 as above [facility] Progress Note Normal [facility] 36on 11-07-2024 36 Normal [facility] Progress Noteon 11-07-2024 Progress Note Normal [facility] Progress Noteon 11-06-2024 Progress Note -BGTs elevated since arrival to [facility] -11/02 A1C 12.9 -Will add low dose SSI today, likely will need increase in prandial insulin next week -Continue Lispro 8U with meals, and 24U Lantus -Accuchecks monitor trends -Hypoglycemia protocol in place Normal [facility] Progress Note -Check Vitamin D level 11/07 -Continue daily supplement for now Normal [facility] Progress Note -11/02 TSH 3.03 -Continue levothyroxine Normal [facility] Progress Note -Continue brimonidine, timolol Normal [facility] Progress Note -Continue atorvastatin Normal [facility] Progress Note -Overall controlled currently -Prior to admission on olmesartan, and carvedilol discontinued for now -Continue metoprolol -Has follow-up with [facility] Cardiology on 12/02 as above [facility] Progress Note Normal [facility] Progress Note Normal [facility] Progress Note Normal [facility] Progress Note -Current status: assist x1 -Contributing factors: hospitalization, acute illness, new onset afib -Continue PT/OT during SNF stay -SW to follow for discharge planning Normal [facility] Progress Note Normal [facility] 30on 11-05-2024 30 Normal [facility] 30 Normal [facility] [id number] 11-05-2024 [id number] Normal [facility] [id number] [facility] [id number] Discharge med list transmitted to [facility] [employer] [facility] request. [id number] completed in [facility] per [facility] request. Facility notified via [employer]. [facility] [phone] [facility] tasked to send discharge order, MAR and 7000 to [employer]. Normal [facility] [id number] VM discontinued yesterday at 1pm. [employer] updated an asked if they would have a bed. Geriatrics/ cards following. Normal [facility] 36on 11-05-2024 36 Admitted to [facility]. Orders reviewed. Will see on Sunday. Normal [facility] BASIC METABOLIC PANELon 10-21 Anion gap [Moles/Vol] 11 mmol/L Normal 3-13 [facility] Comment on above: Performed By: #### L AB15 ####Numerical Control Drill Press Operator: NIEVES RUIZ ([phone])[facility] ([facility])[address] [place] [address] Calcium [Mass/Vol] 8.0 mg/dL Low 8.8-10.0 [facility] Comment on above: Performed By: #### L AB15 ####Numerical Control Drill Press Operator: NIEVES RUIZ ([phone])[facility] ([facility])[address] [place] [address] [place] Chloride [Moles/Vol] 107 mmol/L Normal 98-107 [facility] Comment on above: Performed By: #### L AB15 ####Numerical Control Drill Press Operator: NIEVES RUIZ ([phone])[facility] ([facility])[address] [place] [address] [place] CO2 [Moles/Vol] 19 mmol/L Low 23-31 [facility] Comment on above: Performed By: #### L AB15 ####Numerical Control Drill Press Operator: NIEVES RUIZ ([phone])[facility] ([facility])[address] [place] [address] Creatinine [Mass/Vol] 0.85 mg/dL Normal 0.57-1.11 [facility] Comment on above: Performed By: #### L AB15 ####[employer] Operator: NIEVES RUIZ ([phone])[facility] ([facility])[address] [place] [address] [place] GLOMERULAR FILTRATION RATE ML/MIN/1.73 SQ M.PREDICTED 74.3 mL/min/1.73m*2 Normal >60.0 [facility] Comment on above: Result Comment: Calc ulation based on the Chronic Kidney Disease Epidemiology Collaboration (CKD-EPI) equation refit without adjustment for race Performed By: #### L AB15 ####[employer] Operator: NIEVES RUIZ ([phone])[facility])[address] [place] [address] Glucose [Mass/Vol] 138 mg/dL High 82-115 [facility] Comment on above: Performed By: #### L AB15 ####[employer] Operator: NIEVES RUIZ ([phone])[facility])[address] [place] [address] Potassium [Moles/Vol] 3.5 mmol/L Normal 3.5-5.1 [facility] Comment on above: Result Comment: [facility] potassium values may be up to 0.5 mmol/L lower than serum values. Performed By: #### L AB15 ####[employer] Operator: NIEVES RUIZ ([phone])[facility])[address] [place] [address] Sodium [Moles/Vol] 137 mmol/L Normal 136-145 [facility] Comment on above: Performed By: #### L AB15 ####[employer] Operator: NIEVES RUIZ ([phone])[address] Urea nitrogen [Mass/Vol] 27 mg/dL High 9-23 [facility] Comment on above: Performed By: #### L AB15 ####[employer] Operator: NIEVES RUIZ ([phone])[address] Basic metabolic 1998 panelon 11-05-2024 Anion gap [Moles/Vol] 11 mmol/L 3 - 13 mmol/L [facility] Calcium [Mass/Vol] 8 mg/dL Low 8.8 - 10. 0 mg/dL [facility] Chloride [Moles/Vol] 107 mmol/L 98 - 10 7 mmol/L [facility] CO2 [Moles/Vol] 19 mmol/L Low 23 - 31 mmol/L [facility] Creatinine [Mass/Vol] 0.85 mg/dL 0.57 - 1.11 mg/dL [facility] GFR/1.73 sq M.predicted (S/P/Bld) [Vol rate/Area] 74.3 mL/min - PINF [facility] Comment on above: Calculation based on the Chronic Kidney Disease Epidemiology Collaboration (CKD-EPI) equation refit without adjustment for race Glucose [Mass/Vol] 138 mg/dL High 82 - 115 mg/dL [facility] Interpretation and review of laboratory results Abnormal [facility] Potassium [Moles/Vol] 3.5 mmol/L 3.5 - 5.1 mmol/L [facility] Comment on above: Plasma potassium syed ues may be up to 0.5 mmol/L lower than serum values. Sodium [Moles/Vol] 137 mmol/L 136 - 145 mmol/L [facility] Urea nitrogen [Mass/Vol] 27 mg/dL High 9 - 23 mg/dL [facility] Laboratory - Chemistry and C hemistry - challengeon 11-05-2024 Glucose [Mass/Vol] 192 mg/dL High 70 - 100 mg/dL [facility] No Panel Informationon 11-05 Interpretation and review of laboratory results Abnormal [facility] Performed by: [facility], [address] [place] [address] CLIA ID: [id number] [facility] Nursing Noteon 11-05-2024 Nursing Note Gave report to [employer] [facility] [employer]. Normal [facility] Progress Noteon 11-05-2024 Progress Note Normal [facility] Progress Note Normal [facility] [id number] 11-04-2024 [id number] [employer] able to accept pt. Ramila cao talked with pt. She will need to be 24hr free of VM. Provider and nurse notified. Normal [facility] [id number] Normal [facility] [id number] Normal [facility] Bacteria identified Cx Nom ( U)Ordered By: Alida Carrington on 11-04-2024 Interpretation and review of laboratory results Abnormal [facility] CBC (HEMOGRAM)on 11-04-2024 Erythrocyte distribution width (RBC) [Ratio] 13.6 % Normal 11.5-15.0 [facility] Comment on above: Performed By: #### L AB294 ####[employer] Operator: NIEVES RUIZ ([phone])[facility])[address] [place] [address] Hematocrit (Bld) [Volume fraction] 35.5 % Normal 35.0-47.0 [facility] Comment on above: Performed By: #### L AB294 ####[employer] Operator: NIEVES RUIZ ([phone])[facility])[address] [place] [address] Hemoglobin (Bld) [Mass/Vol] 11.8 g/dL Normal 11.7-16.0 [facility] Comment on above: Performed By: #### L AB294 ####[employer] Operator: NIEVES RUIZ ([phone])[facility])[address] [place] [address] [place] IPF 8 Normal [facility] Comment on above: Performed By: #### L AB294 ####[employer] Operator: NIEVES RUIZ ([phone])[facility])[address] [place] [address] MCH (RBC) [Entitic mass] 29.0 pg Normal 26.0-34.0 [facility] Comment on above: Performed By: #### L AB294 ####[employer] Operator: NIEVES RUIZ ([phone])[facility])[address] [place] [address] MCHC 33.2 % Normal 30.5-36.0 [facility] Comment on above: Performed By: #### L AB294 ####[employer] Operator: NIEVES RUIZ ([phone])[facility])[address] [place] [address] MCV (RBC) [Entitic vol] 87.2 fL Normal 77.0-99.0 S [facility] Comment on above: Performed By: #### L AB294 ####[employer] Operator: NIEVES RUIZ ([id number])[facility] ([facility])[address] [place] [address] Platelet mean volume (Bld) [Entitic vol] 13.1 fL High 9.0-12.7 [facility] Comment on above: Performed By: #### L AB294 ####[employer] Operator: NIEVES RUIZ ([phone])[facility] ([facility])[address] [place] [address] Platelets (Bld) [#/Vol] 103 10*3/uL Low 140-440 [facility] Comment on above: Performed By: #### L AB294 ####[employer] Operator: NIEVES RUIZ ([id number])[facility] ([facility])[address] [place] [address] RBC (Bld) [#/Vol] 4.07 10*6/uL Normal 3.80-5.20 [facility] Comment on above: Performed By: #### L AB294 ####[employer] Operator: NIEVES RUIZ ([phone])[facility] ([facility])[address] [place] [address] WBC (Bld) [#/Vol] 8.1 10*3/uL Normal 3.6-10.7 [facility] Comment on above: Performed By: #### L AB294 ####[employer] Operator: NIEVES RUIZ ([id number])[facility] ([facility])[address] [place] [address] CBC panel Auto (Bld)Ordered By: Cornelio Mathew on 11-04-2024 Erythrocyte distribution width (RBC) [Ratio] 13.6 % 11.5 - 15.0 % [facility] Hematocrit (Bld) [Volume fraction] 35.5 % 35.0 - 47.0 % [facility] Hemoglobin (Bld) [Mass/Vol] 11.8 g/dL 11.7 - 16.0 g/dL [facility] Interpretation and review of laboratory results Abnormal [facility] th IPF 8 [facility] MCH (RBC) [Entitic mass] 29 pg 26. 0 - 34.0 pg [facility] MCHC (RBC) [Mass/Vol] 33.2 % 30.5 - 36.0 % [facility] MCV (RBC) [Entitic vol] 87.2 fL 77.0 - 99.0 fL [facility] Platelet mean volume (Bld) [Entitic vol] 13.1 fL High 9.0 - 12.7 fL [facility] Platelets (Bld) [#/Vol] 103 10*3/uL Low 140 - 440 10*3/uL [facility] RBC (Bld) [#/Vol] 4.07 10*6/uL 3.80 - 5.2 0 10*6/uL [facility] WBC (Bld) [#/Vol] 8.1 10*3/uL 3.6 - 10.7 10*3/uL [facility] Consulton 11-04-2024 Consult Normal [facility] Laboratory - Chemistry and C hemistry - challengeon 11-04-2024 Glucose [Mass/Vol] 230 mg/dL High 70 - 100 mg/dL [facility] Glucose [Mass/Vol] 220 mg/dL High 70 - 100 mg/dL [facility] Glucose [Mass/Vol] 186 mg/dL High 70 - 100 mg/dL [facility] Glucose [Mass/Vol] 195 mg/dL High 70 - 100 mg/dL [facility] Laboratory - Microbiology an d Antimicrobial susceptibilityOrdered By: Alida Carrington on 11-04-2024 Bacteria identified Cx Nom (U) Normal urogenital miah present [facility] Bacteria identified Cx Nom (U) >100,000 CFU/mL Escherichia coli Abnormal [facility] No Panel Informationon 11-04 Interpretation and review of laboratory results Abnormal [facility] th [facility]: [facility], [address] [place] [address] CLIA ID: [id number] [facility] Interpretation and review of laboratory results Abnormal [facility] th Performed by: [facility], [address] [place] [address] CLIA ID: [id number] [facility] Interpretation and review of laboratory results Abnormal [facility] Performed by: [facility], [address] [place] [address] CLIA ID: [id number] [facility] Interpretation and review of laboratory results Abnormal [facility] th Performed by: [facility], [address] [place] [address] CLIA ID: [id number] [facility] Nursing Noteon 11-04-2024 Nursing Note Visual monitor removed from room. Pt has been free of any events today that would require a monitor Normal [facility] Progress Noteon 11-04-2024 Progress Note [facility] [id number] 11-03-2024 [id number] Normal [facility] APTTon 11-03-2024 aPTT Coag (Bld) [Time] 26.5 s Normal 20.0-30.5 [facility] Comment on above: Result Comment: SUNG Bryan COMMENTS:NOTE: The therapeutic time for Heparin anticoagulation, based on Xa activity inhibition, is an APTT of 46-80 seconds. Performed By: #### L AB325 ####[employer] Operator: NIEVES RUIZ ([phone])[facility] ([facility])[address] [place] [address] BASIC METABOLIC PANELon 10-21 Anion gap [Moles/Vol] 13 mmol/L Normal 3-13 [facility] Comment on above: Performed By: #### L AB15, LAB67 ####[employer] Operator: NIEVES RUIZ ([phone])[facility] ([facility])[address] [place] [address] Calcium [Mass/Vol] 8.8 mg/dL Normal 8.8-10.0 [facility] Comment on above: Performed By: #### L AB15, LAB67 ####[employer] Operator: NIEVES RUIZ ([phone])[facility] ([facility])[address] [place] [address] Chloride [Moles/Vol] 105 mmol/L Normal 98-107 [facility] Comment on above: Performed By: #### L AB15, LAB67 ####[employer] Operator: NIEVES RUIZ ([id number])[facility] ([facility])[address] [place] [address] CO2 [Moles/Vol] 19 mmol/L Low 23-31 [facility] Comment on above: Performed By: #### L AB15, LAB67 ####[employer] Operator: NIEVES RUIZ ([phone])[facility])[address] [place] [address] Creatinine [Mass/Vol] 1.03 mg/dL Normal 0.57-1.11 [facility] Comment on above: Performed By: #### L AB15, LAB67 ####[employer] Operator: NIEVES RUIZ ([phone])[facility])[address] [place] [address] GLOMERULAR FILTRATION RATE ML/MIN/1.73 SQ M.PREDICTED 59.0 mL/min/1.73m*2 Low >60.0 [facility] Comment on above: Result Comment: Calc ulation based on the Chronic Kidney Disease Epidemiology Collaboration (CKD-EPI) equation refit without adjustment for race Performed By: #### L AB15, LAB67 ####[employer] Operator: NIEVES RUIZ ([phone])[facility])[address] [place] [address] Glucose [Mass/Vol] 238 mg/dL High 82-115 [facility] Comment on above: Performed By: #### L AB15, LAB67 ####[employer] Operator: NIEVES RUIZ ([phone])[facility])[address] [place] [address] Potassium [Moles/Vol] 3.6 mmol/L Normal 3.5-5.1 [facility] Comment on above: Result Comment: [facility] potassium values may be up to 0.5 mmol/L lower than serum values. Performed By: #### L AB15, LAB67 ####[employer] Operator: NIEVES RUIZ ([phone])[facility])[address] [place] [address] [place] Sodium [Moles/Vol] 137 mmol/L Normal 136-145 [facility] Comment on above: Performed By: #### L AB15, LAB67 ####[employer] Operator: NIEVES RUIZ ([phone])[facility])[address] [place] [address] Urea nitrogen [Mass/Vol] 31 mg/dL High 9-23 [facility] Comment on above: Performed By: #### L AB15, LAB67 ####[employer] Operator: NIEVES RUIZ ([phone])[facility] ([facility])[address] [place] [address] Basic metabolic 1998 panelon 11-03-2024 Anion gap [Moles/Vol] 13 mmol/L 3 - 13 mmol/L [facility] Calcium [Mass/Vol] 8.8 mg/dL 8.8 - 10. 0 mg/dL [facility] Chloride [Moles/Vol] 105 mmol/L 98 - 10 7 mmol/L [facility] CO2 [Moles/Vol] 19 mmol/L Low 23 - 31 mmol/L [facility] Creatinine [Mass/Vol] 1.03 mg/dL 0.57 - 1.11 mg/dL [facility] GFR/1.73 sq M.predicted (S/P/Bld) [Vol rate/Area] 59 mL/min Low - PINF [facility] Comment on above: Calculation based on the Chronic Kidney Disease Epidemiology Collaboration (CKD-EPI) equation refit without adjustment for race Glucose [Mass/Vol] 238 mg/dL High 82 - 115 mg/dL [facility] Interpretation and review of laboratory results Abnormal [facility] th Potassium [Moles/Vol] 3.6 mmol/L 3.5 - 5.1 mmol/L [facility] Comment on above: Plasma potassium syed ues may be up to 0.5 mmol/L lower than serum values. Sodium [Moles/Vol] 137 mmol/L 136 - 145 mmol/L [facility] Urea nitrogen [Mass/Vol] 31 mg/dL High 9 - 23 mg/dL [facility] CBC (HEMOGRAM)on 11-03-2024 Erythrocyte distribution width (RBC) [Ratio] 13.6 % Normal 11.5-15.0 [facility] Comment on above: Performed By: #### L AB294 ####[employer] Operator: NIEVES RUIZ ([phone])[facility])[address] [place] [address] Hematocrit (Bld) [Volume fraction] 37.8 % Normal 35.0-47.0 [facility] Comment on above: Performed By: #### L AB294 ####[employer] Operator: NIEVES RUIZ ([phone])[facility])[address] [place] [address] Hemoglobin (Bld) [Mass/Vol] 12.8 g/dL Normal 11.7-16.0 [facility] Comment on above: Performed By: #### L AB294 ####[employer] Operator: NIEVES RUIZ ([phone])[facility])[address] [place] [address] MCH (RBC) [Entitic mass] 28.9 pg Normal 26.0-34.0 [facility] Comment on above: Performed By: #### L AB294 ####[employer] Operator: NIEVES RUIZ ([phone])[facility] ([facility])[address] [place] [address] MCHC 33.9 % Normal 30.5-36.0 [facility] Comment on above: Performed By: #### L AB294 ####[employer] Operator: NIEVES RUIZ ([phone])[facility])[address] [place] [address] MCV (RBC) [Entitic vol] 85.3 fL Normal 77.0-99.0 S [facility] Comment on above: Performed By: #### L AB294 ####[employer] Operator: NIEVES RUIZ ([phone])[facility])[address] [place] [address] Platelet mean volume (Bld) [Entitic vol] 13.0 fL High 9.0-12.7 [facility] Comment on above: Performed By: #### L AB294 ####[employer] Operator: NIEVES RUIZ ([phone])[facility] [place] [address] Platelets (Bld) [#/Vol] 200 10*3/uL Normal 140-440 [facility] Comment on above: Performed By: #### L AB294 ####[employer] Operator: NIEVES RUIZ ([id number])[address] RBC (Bld) [#/Vol] 4.43 10*6/uL Normal 3.80-5.20 [facility] Comment on above: Performed By: #### L AB294 ####[employer] Operator: NIEVES RUIZ ([id number])[address] WBC (Bld) [#/Vol] 8.8 10*3/uL Normal 3.6-10.7 [facility] Comment on above: Performed By: #### L AB294 ####[employer] Operator: NIEVES RUIZ ([phone])[address] CBC panel Auto (Bld)on 11-03 Erythrocyte distribution width (RBC) [Ratio] 13.6 % 11.5 - 15.0 % [facility] Hematocrit (Bld) [Volume fraction] 37.8 % 35.0 - 47.0 % [facility] Hemoglobin (Bld) [Mass/Vol] 12.8 g/dL 11.7 - 16.0 g/dL [facility] Interpretation and review of laboratory results Abnormal [facility] MCH (RBC) [Entitic mass] 28.9 pg 26. 0 - 34.0 pg [facility] MCHC (RBC) [Mass/Vol] 33.9 % 30.5 - 36.0 % [facility] MCV (RBC) [Entitic vol] 85.3 fL 77.0 - 99.0 fL [facility] Platelet mean volume (Bld) [Entitic vol] 13 fL High 9.0 - 12.7 fL [facility] Platelets (Bld) [#/Vol] 200 10*3/uL 140 - 440 10*3/uL [facility] RBC (Bld) [#/Vol] 4.43 10*6/uL 3.80 - 5.2 0 10*6/uL [facility] WBC (Bld) [#/Vol] 8.8 10*3/uL 3.6 - 10.7 10*3/uL [facility] Cobalamin (Vitamin B12) [Mas s/Vol]on 11-03-2024 Interpretation and review of laboratory results Abnormal [facility] Consulton 11-03-2024 Consult Normal [facility] Consult Normal [facility] Laboratory - Chemistry and C hemistry - challengeon 11-03-2024 Glucose [Mass/Vol] 246 mg/dL High 70 - 100 mg/dL [facility] Glucose [Mass/Vol] 227 mg/dL High 70 - 100 mg/dL [facility] Cobalamin (Vitamin B12) [Mass/Vol] 1369 pg/mL High 213 - 816 pg/mL [facility] Comment on above: TC Significant interference from hemolysis. Result integrity compromised. Interpret with caution. Glucose [Mass/Vol] 264 mg/dL High 70 - 100 mg/dL [facility] Glucose [Mass/Vol] 257 mg/dL High 70 - 100 mg/dL [facility] No Panel Informationon 11-03 Interpretation and review of laboratory results Abnormal [facility] Performed by: [facility], [address] [place] [address] CLIA ID: [id number] [facility] Interpretation and review of laboratory results Abnormal [facility] Performed by: [facility], [address] [place] [address] CLIA ID: [id number] [facility] Interpretation and review of laboratory results Abnormal [facility] Performed by: [facility], [address] [place] [address] CLIA ID: [id number] [facility] Interpretation and review of laboratory results Abnormal [facility] Performed by: [facility], [address] [place] [address] CLIA ID: [id number] [facility] Progress Noteon 11-03-2024 Progress Note Normal [facility] Progress [facility] Normal [facility] Progress Note Normal [facility] Progress Note Normal [facility] Progress Note OCCUPATIONAL THERAPY [facility] Name/MRN: Dameon Potter ([id number]) Date: 11/03/2024 OT eval and treat order received. Patient chart reviewed. Patient currently starting bedside ECHO. Will continue to follow. Laura Combs, OT Normal [facility] US Heart TransthoracicOrdere d By: Jorden Greenberg on 11-03-2024 Ao Root Index 1.8 cm/m2 [facility] Work Phone: Aortic Root 3.7 cm [facility] Work Phone: Aortic Sinus Valsalva 3.7 cm [facility] Work Phone: Aortic Sinus Valsalva Index 1.8 cm/m2 [facility] Work Phone: Aortic valve Mean systole pressure gradient by US.doppler derived full Bernoulli 18 mmHg [facility] Work Phone: Aortic valve Orifice area by US 2.8 cm2 [facility] Work Phone: Aortic valve Peak systolic flow by US.doppler 2 m/s [facility] Work Phone: [facility]ending [facility]: Ascending Aorta Index 1.65 cm/m2 [facility] Work Phone: AV Area by Peak Velocity 1.2 cm2 [facility] Work Phone: AV Area by VTI 1.3 cm2 [facility] Work Phone: AV AT 74.22 ms [facility] Work Phone: AV Peak Gradient 28 mmHg [facility] Work Phone: AV Peak Velocity 2.7 m/s [facility] Work Phone: AV Velocity Ratio 0.41 [facility] Work Phone: AV VTI 40.4 cm [facility] Work Phone: PEÑA/BSA Peak Velocity 0.6 cm2/m2 [facility] Work Phone: PEÑA/BSA VTI 0.6 cm2/m2 [facility] Work Phone: Est. RA Pressure 15 mmHg [facility] Work Phone: Interpretation and review of laboratory results Abnormal [facility] Work Phone: IVC Diameter 2.3 cm [facility] Work Phone: LA Volume 2C 61 mL Abnormal 22 - 52 mL [facility] Work Phone: LA Volume 4C 66 mL Abnormal 22 - 52 mL [facility] Work Phone: LA Volume A/L 66 mL [facility] Work Phone: LA Volume BP 63 mL Abnormal 22 - 52 mL [facility] Work Phone: LA Volume Index 2C 30 mL/m2 16 - 34 mL/m2 [facility] Work Phone: [phone] LA Volume Index 4C 32 mL/m2 16 - 34 mL/m2 [facility] Work Phone: LA Volume Index A/L 32 mL/m2 16 - 34 mL/m2 [facility] Work Phone: [phone] LA Volume Index BP 31 ml/m2 16 - 34 ml/m2 [facility] Work Phone: Left ventricular Ejection fraction by US.2D+Calculated by biplane method of disks 61 % 55 - 100 % [facility] Work Phone: LV EDV A2C 75 mL [facility] Work Phone: LV EDV A4C 70 mL [facility] Work Phone: LV EDV BP 74 mL 56 - 104 mL [facility] Work Phone: LV EDV Index A2C 36 mL/m2 [facility] Work Phone: LV EDV Index A4C 34 mL/m2 [facility] Work Phone: LV EDV Index BP 36 mL/m2 [facility] Work Phone: LV Ejection Fraction A2C 58 % [facility] Work Phone: LV Ejection Fraction A4C 66 % [facility] Work Phone: LV ESV A2C 32 mL [facility] Work Phone: [phone] LV ESV A4C 24 mL [facility] Work Phone: LV ESV BP 29 mL 19 - 49 mL [facility] Work Phone: LV ESV Index A2C 16 mL/m2 [facility] Work Phone: [phone] LV ESV Index A4C 12 mL/m2 [facility] Work Phone: LV ESV Index BP 14 mL/m2 [facility] Work Phone: LVOT Cardiac Output 7.3 liter/mi nut e [facility] Work Phone: LVOT Diameter 1.9 cm [facility] Work Phone: LVOT Mean Gradient 3 mmHg [facility] Work Phone: [phone] LVOT Peak Gradient 5 mmHg [facility] Work Phone: [phone] LVOT Peak Velocity 1.1 m/s [facility] Work Phone: [phone] LVOT Stroke Volume Index 25.3 mL/m2 [facility] Work Phone: LVOT SV 52.1 ml [facility] Work Phone: LVOT VTI 18.4 cm [facility] Work Phone: LVOT:AV VTI Index 0.46 [facility] Work Phone: [phone] RA Area 4C 39.1 mL [facility] Work Phone: [phone] RA Area 4C 38.4 mL [facility] Work Phone: [phone] RV Basal Dimension 3.9 cm [facility] Work Phone: [phone] RV Free Wall Peak S' 15 cm/s [facility] Work Phone: [phone] RV Longitudinal Dimension 6.6 cm [facility] Work Phone: [phone] RV Mid Dimension 3 cm [facility] Work Phone: Sinotubular Junction 2.8 cm [facility] Work Phone: TAPSE 2.1 cm 1.7 cm [facility] Work Phone: [facility] Work Phone: [facility] Transthoracicon Left Ventricle: Left ventricle is smaller than normal. Increased wall thickness. Hyperdynamic left ventricular systolic function. The EF by visual approximation is >75%. Normal wall motion. Right Ventricle: Right ventricle size is normal. Normal systolic function. Aortic Valve: Moderate stenosis of the aortic valve. AV mean gradient is 18 mmHg. AV area by continuity VTI is 1.3 cm2. AV Peak Velocity is 2.7 m/s. In comparison to the echo from 02/2024, the patient is in atrial fibrillation in the current study and was previously in a normal rhythm. The measured aortic valve peak velocity and mean gradient are decreased in the current study compared with the prior; this may be due to decreased stroke volume secondary to atrial fibrillatoin. Left Ventricle Left ventricle is smaller than normal. Increased wall thickness. Hyperdynamic left ventricular systolic function. The EF by visual approximation is >75%. Normal wall motion. Indeterminate diastolic function due to atrial fibrillation. Right Ventricle Right ventricle size is normal. Normal systolic function. Left Atrium Left atrium size is normal. Right Atrium Right atrium size is normal. IVC/SVC IVC diameter is dilated and decreases greater than 50% during inspiration; therefore the estimated right atrial pressure is intermediate (~8 mmHg). Mitral Valve Annular calcification. Trace regurgitation. No stenosis noted. Tricuspid Valve Valve structure is normal. Trace regurgitation. Unable to assess RVSP. Aortic Valve Not well visualized. Thickened cusps. Calcified cusps. No regurgitation. Moderate stenosis of the aortic valve. AV mean gradient is 18 mmHg. AV area by continuity VTI is 1.3 cm2. AV Peak Velocity is 2.7 m/s. Pulmonic Valve Valve structure is normal. Trace regurgitation. Ascending Aorta Normal sized sinuses of Valsalva and ascending aorta. Pericardium Not well visualized. Evidence of prominent epicardial fat. No pericardial effusion. Septum No interatrial shunt visualized on color Doppler. Pulmonary Artery Pulmonary artery was not assessed due to poor image quality. Study Details Image quality: fair. Blood pressure: 141/93 mmHg. The underlying ECG rhythm was atrial fibrillation. No contrast was given. Comparison Study There is a prior study available for comparison. Prior study date: 03/14/2024. CV CPACS VITAMIN B12on 11-03-2024 Cobalamin (Vitamin B12) [Mass/Vol] 1369 pg/mL High 213-816 [facility] Comment on above: Result Comment: TCSi gnificant interference from hemolysis. Result integrity compromised. Interpret with caution. Performed By: #### L AB15, LAB67 ####Numerical Control Drill Press Operator: NIEVES RUIZ ([phone])[facility])[address] [place] [address] aPTT Coag (Bld) [Time]on aPTT Coag (PPP) [Time] 26.5 s 20.0 - 30.5 s [facility] Interpretation and review of laboratory results Normal [facility] NOTE: The therapeuti c time for Heparin anticoagulation, based on Xa activity inhibition, is an APTT of 46-80 seconds. [facility] 30on 11-02-2024 30 Normal [facility] AMMONIAon 11-02-2024 Ammonia (P) [Moles/Vol] 31 umol/L Normal 18-72 [facility] Comment on above: Result Comment: TCHe molyzed samples should not be used. Performed By: #### L AB47 ####Numer[employer] Press Operator: NIEVES RUIZ ([phone])[address] APTTon 11-02-2024 aPTT Coag (Bld) [Time] 21.1 s Normal 20.0-30.5 [place] Comment on above: Result Comment: ORDE R COMMENTS:NOTE: The therapeutic time for Heparin anticoagulation, based on Xa activity inhibition, is an APTT of 46-80 seconds. Performed By: #### L AB325 ####Numer[employer] Control [employer] Press Operator: NIEVES RUIZ ([phone])[facility])[address] [place] [address] BASIC METABOLIC PANELon - Anion gap [Moles/Vol] 12 mmol/L Normal -13 [facility] Comment on above: Performed By: #### L AB15 ####Numerical Control [employer] Press Operator: NIEVES RUIZ ([id number])[facility] ([facility])[address] [place] [address] Calcium [Mass/Vol] 8.9 mg/dL Normal 8.8-10.0 [facility] Comment on above: Performed By: #### L AB15 ####Numerical Control [employer] Press Operator: NIEVES RUIZ ([id number])[facility] ([facility])[address] [place] [address] [place] Chloride [Moles/Vol] 102 mmol/L Normal 98-107 [facility] Comment on above: Performed By: #### L AB15 ####Numer[employer] Control [employer] Press Operator: NIEVES RUIZ ([id number])[facility] ([facility])[address] [place] [address] CO2 [Moles/Vol] 19 mmol/L Low 23-31 [facility] Comment on above: Performed By: #### L AB15 ####Numerical Control Dr[employer] Press Operator: NIEVES RUIZ ([phone])[facility] ([facility])[address] [place] [address] Creatinine [Mass/Vol] 1.26 mg/dL High 0.57-1.11 [facility] Comment on above: Performed By: #### L AB15 ####Numer[employer] Control [employer] Press Operator: NIEVES RUIZ ([phone])[facility] ([facility])[address] [place] [address] [place] GLOMERULAR FILTRATION RATE ML/MIN/1.73 SQ M.PREDICTED 46.3 mL/min/1.73m*2 Low >60.0 [facility] Comment on above: Result Comment: Calc ulation based on the Chronic Kidney Disease Epidemiology Collaboration (CKD-EPI) equation refit without adjustment for race Performed By: #### L AB15 ####Numerical Control [employer] Press Operator: NIEVES RUIZ ([phone])[facility] ([facility])[address] [place] [address] [place] Glucose [Mass/Vol] 278 mg/dL High 82-115 [facility] Comment on above: Performed By: #### L AB15 ####Numerical Control [employer] Press Operator: NIEVES RUIZ ([phone])[facility] ([facility])[address] [place] [address] Potassium [Moles/Vol] 4.5 mmol/L Normal 3.5-5.1 [facility] Comment on above: Result Comment: TCPo tential interference from hemolysis Performed By: #### L AB15 ####Numerical Control [employer] Press Operator: NIEVES RUIZ ([phone])[facility] ([facility])[address] [place] [address] Sodium [Moles/Vol] 133 mmol/L Low 136-145 [facility] Comment on above: Performed By: #### L AB15 ####Numerical Control [employer] Press Operator: NIEVES RUIZ ([phone])[facility])[address] [place] [address] Urea nitrogen [Mass/Vol] 31 mg/dL High 9-23 [facility] Comment on above: Performed By: #### L AB15 ####Numer[employer] Control [employer] Press Operator: NIEVES RUIZ ([phone])[facility] ([facility])[address] [place] [address] Anion gap [Moles/Vol] 13 mmol/L Normal 3-13 [facility] Comment on above: Performed By: #### L [id number], [id number], HOH785, LAB15, HPT039 ####Numer[employer] Control [employer] Operator: NIEVES RUIZ ([phone])[facility] ([facility])[address] [place] [address] Calcium [Mass/Vol] 8.9 mg/dL Normal 8.8-10.0 [facility] Comment on above: Performed By: #### L [id number], UZY258, LZX852, LAB15, WNF130 ####Numerical Control [employer] Operator: NIEVES RUIZ ([phone])[facility] ([facility])[address] [place] [address] [place] Chloride [Moles/Vol] 100 mmol/L Normal 98-107 [facility] Comment on above: Performed By: #### L [id number], YAB073, TKK394, LAB15, IXY673 ####Numer[employer] Press Operator: NIEVES RUIZ ([phone])[facility])[address] [place] [address] CO2 [Moles/Vol] 20 mmol/L Low 23-31 [facility] Comment on above: Performed By: #### L GP6700, WMI462, RTP906, LAB15, GHU757 ####Numerical Control [employer] Press Operator: NIEVES RUIZ ([phone])[facility])[address] [place] [address] Creatinine [Mass/Vol] 1.38 mg/dL High 0.57-1.11 [facility] Comment on above: Performed By: #### L GL1603, HFC895, PGQ238, LAB15, LCO652 ####Numerical Control [employer] Operator: NIEVES RUIZ ([phone])[facility])[address] [place] [address] GLOMERULAR FILTRATION RATE ML/MIN/1.73 SQ M.PREDICTED 41.5 mL/min/1.73m*2 Low >60.0 [facility] Comment on above: Result Comment: Calc ulation based on the Chronic Kidney Disease Epidemiology Collaboration (CKD-EPI) equation refit without adjustment for race Performed By: #### L UP8886, ZSS858, JQC933, LAB15, TWT144 ####Numer[employer] Operator: NIEVES RUIZ ([id number])[facility])[address] [place] [address] Glucose [Mass/Vol] 255 mg/dL High 82-115 [facility] Comment on above: Performed By: #### L AE9551, IHL424, CWW254, LAB15, PQZ843 ####Numerical Control [employer] Operator: NIEVES RUIZ ([id number])[facility])[address] [place] [address] Potassium [Moles/Vol] 4.1 mmol/L Normal 3.5-5.1 [facility] Comment on above: Result Comment: TCPo tential interference from hemolysis Performed By: #### L AE7966, FZJ878, ZVP634, LAB15, KPC871 ####Numerical Control [employer] Press Operator: NIEVES RUIZ ([phone])[facility])[address] [place] [address] Sodium [Moles/Vol] 133 mmol/L Low 136-145 [facility] Comment on above: Performed By: #### L OS3141, BKX959, YUS353, LAB15, ICR521 ####Numer[employer] Control [employer] Operator: NIEVES RUIZ ([phone])[facility] ([facility])[address] [place] [address] Urea nitrogen [Mass/Vol] 31 mg/dL High 9-23 [facility] Comment on above: Performed By: #### L XB8269, VIO296, RHO438, LAB15, JXQ502 ####Numer[employer] Control [employer] Operator: NIEVES RUIZ ([phone])[facility] ([facility])[address] [place] [address] BETA HYDROXYBUTYRATEon 11-02 BETA HYDROXYBUTYRATE 24.9 mg/dL High <=2.8 [facility] Comment on above: Performed By: #### L UO3306, VGG003, YPY400, LAB15, FGH746 ####Numerical Control [employer] Press Operator: NIEVES RUIZ ([id number])[facility] ([facility])[address] [place] [address] Basic metabolic 1998 panelon 11-02-2024 Anion gap [Moles/Vol] 12 mmol/L 3 - 13 mmol/L [facility] Calcium [Mass/Vol] 8.9 mg/dL 8.8 - 10. 0 mg/dL [facility] Chloride [Moles/Vol] 102 mmol/L 98 - 10 7 mmol/L [facility] CO2 [Moles/Vol] 19 mmol/L Low 23 - 31 mmol/L [facility] Creatinine [Mass/Vol] 1.26 mg/dL High 0.57 - 1.11 mg/dL [facility] GFR/1.73 sq M.predicted (S/P/Bld) [Vol rate/Area] 46.3 mL/min Low - PINF [facility] Comment on above: Calculation based on the Chronic Kidney Disease Epidemiology Collaboration (CKD-EPI) equation refit without adjustment for race Glucose [Mass/Vol] 278 mg/dL High 82 - 115 mg/dL [facility] Interpretation and review of laboratory results Abnormal [facility] Potassium [Moles/Vol] 4.5 mmol/L 3.5 - 5.1 mmol/L [facility] Comment on above: TC Potential interference from hemolysis Sodium [Moles/Vol] 133 mmol/L Low 136 - 145 mmol/L [facility] Urea nitrogen [Mass/Vol] 31 mg/dL High 9 - 23 mg/dL [facility] Anion gap [Moles/Vol] 13 mmol/L 3 - 13 mmol/L [facility] Calcium [Mass/Vol] 8.9 mg/dL 8.8 - 10. 0 mg/dL [facility] Chloride [Moles/Vol] 100 mmol/L 98 - 10 7 mmol/L [facility] CO2 [Moles/Vol] 20 mmol/L Low 23 - 31 mmol/L [facility] Creatinine [Mass/Vol] 1.38 mg/dL High 0.57 - 1.11 mg/dL [facility] GFR/1.73 sq M.predicted (S/P/Bld) [Vol rate/Area] 41.5 mL/min Low - PINF [facility] Comment on above: Calculation based on the Chronic Kidney Disease Epidemiology Collaboration (CKD-EPI) equation refit without adjustment for race Glucose [Mass/Vol] 255 mg/dL High 82 - 115 mg/dL [facility] Potassium [Moles/Vol] 4.1 mmol/L 3.5 - 5.1 mmol/L [facility] Comment on above: TC Potential interference from hemolysis Sodium [Moles/Vol] 133 mmol/L Low 136 - 145 mmol/L [facility] Urea nitrogen [Mass/Vol] 31 mg/dL High 9 - 23 mg/dL [facility] CBC W Auto Differential pane l (Bld)Ordered By: Susanna Veronica on 11-02-2024 Erythrocyte distribution width (RBC) [Ratio] 13.4 % 11.5 - 15.0 % [facility] Hematocrit (Bld) [Volume fraction] 36.2 % 35.0 - 47.0 % [facility] Hemoglobin (Bld) [Mass/Vol] 12.5 g/dL 11.7 - 16.0 g/dL [facility] Interpretation and review of laboratory results Normal [facility] MCH (RBC) [Entitic mass] 28.9 pg 26. 0 - 34.0 pg [facility] MCHC (RBC) [Mass/Vol] 34.5 % 30.5 - 36.0 % [facility] MCV (RBC) [Entitic vol] 83.6 fL 77.0 - 99.0 fL [facility] Platelet mean volume (Bld) [Entitic vol] 12.4 fL 9.0 - 12.7 fL [facility] Platelets (Bld) [#/Vol] 169 10*3/uL 140 - 440 10*3/uL [facility] RBC (Bld) [#/Vol] 4.33 10*6/uL 3.80 - 5.2 0 10*6/uL [facility] WBC (Bld) [#/Vol] 9.5 10*3/uL 3.6 - 10.7 10*3/uL [facility] CBC WITH AUTO DIFFERENTIALon 11-02-2024 Erythrocyte distribution width (RBC) [Ratio] 13.4 % Normal 11.5-15.0 [facility] Comment on above: Performed By: #### L [id number], [id number] ####[employer] Operator: NIEVES RUIZ ([id number])[address] Hematocrit (Bld) [Volume fraction] 36.2 % Normal 35.0-47.0 [facility] Comment on above: Performed By: #### L IK7646, [id number] ####Numer[employer] Control [employer] Press Operator: NIEVES [id number])[address] Hemoglobin (Bld) [Mass/Vol] 12.5 g/dL Normal 11.7-16.0 [facility] Comment on above: Performed By: #### L [id number], [id number] ####Numerical Control [employer] Press Operator: NIEVES RUIZ ([id number])[facility])[address] [place] [address] MCH (RBC) [Entitic mass] 28.9 pg Normal 26.0-34.0 [facility] Comment on above: Performed By: #### L [id number], [id number] ####Numer[employer] Control [employer] Operator: NIEVES [id number])[address] MCHC 34.5 % Normal 30.5-36.0 [facility] Comment on above: Performed By: #### L YK4379, [id number] ####Numerical Control [employer] Press Operator: NIEVES RUIZ ([id number])[facility] ([facility])[address] [place] [address] MCV (RBC) [Entitic vol] 83.6 fL Normal 77.0-99.0 [facility] Comment on above: Performed By: #### L [id number], [id number] ####Numerical Control [employer] Operator: NIEVES RUIZ ([id number])[facility] ([facility])[address] [place] [address] Platelet mean volume (Bld) [Entitic vol] 12.4 fL Normal 9.0-12.7 [facility] Comment on above: Performed By: #### L [id number], [id number] ####Numerical Control [employer] Operator: NIEVES RUIZ ([id number])[facility] ([facility])[address] [place] [address] Platelets (Bld) [#/Vol] 169 10*3/uL Normal 140-440 [facility] Comment on above: Performed By: #### L [id number], [id number] ####Numer[employer] Control [employer] Operator: NIEVES RUIZ ([id number])[facility] ([facility])[address] [place] [address] RBC (Bld) [#/Vol] 4.33 10*6/uL Normal 3.80-5.20 [facility] Comment on above: Performed By: #### L [id number], [id number] ####Numerical Control [employer] Operator: NIEVES RUIZ ([id number])[facility])[address] [place] [address] WBC (Bld) [#/Vol] 9.5 10*3/uL Normal 3.6-10.7 [facility] Comment on above: Performed By: #### L [id number], [id number] ####Numerical Control Drill Press Operator: NIEVES RUIZ ([phone])[facility])[address] [place] [address] Consulton 11-02-2024 Consult Normal [facility] ECG 12-LEADon 11-02-2024 ECG 12-LEAD IMPRESSION: Atrial fibrillation Left anterior fascicular block LVH with secondary repolarization abnormality Anterior Q waves, possibly due to LVH Electronically Signed On 11-02-2024 08:32:22 EDT by Jose Martin Faustin [facility] ECG 12-LEAD IMPRESSION: Atrial fibrillation Left anterior fascicular block LVH with secondary repolarization abnormality Anterior Q waves, possibly due to LVH Electronically Signed On 11-02-2024 08:29:48 EDT by Jose Martin Faustin [facility] ECG 12-LEAD IMPRESSION: Atrial fibrillation Left anterior fascicular block LVH with secondary repolarization abnormality Anterior Q waves, possibly due to LVH Electronically Signed On 11-02-2024 07:24:05 EDT by Cameron Rodriguez Normal [facility] ED Nursing Noteon 11-02-2024 ED Nursing Note Patient awake and alert, IV site intact in the right arm infusing heparin at 9.6units/kg/hr and NS at 75ml/hr. Patient's IV in the LAC removed no longer flushing. Normal [facility] ED Nursing Note Pt to ultrasound Normal [facility] ED Nursing Note Next APTT to be draw n at 1013am. Normal [facility] ED Nursing Note All meds still being verified by pharmacy Normal [facility] ED Nursing Note Dr. Darby has been notified of pt's HR of 130s then will drop to >100 after few seconds via secure chat [facility] HEMOGLOBIN A1Con 11-02-2024 Glucose [Mass/Vol] 324 mg/dL Normal [facility] Comment on above: Result Comment: ORDE R COMMENTS:HbA1c values of 5.7-6.4 percent indicate an increased risk for developing diabetes mellitus. HbA1c values greater than or equal to 6.5 percent are diagnostic of diabetes mellitus. For diagnosis of diabetes in individuals without unequivocal hyperglycemia, results should be confirmed by repeat testing. Performed By: #### L AB90 ####Numerical Control Drill Press Operator: NIEVES RUIZ ([phone])[facility] ([facility])[address] HEMOGLOBIN A1C 12.9 %HbA1C High <5.7 [facility] Comment on above: Result Comment: Norm al less than 5.7%Prediabetes 5.7% to 6.4%Diabetes 6.5% or higher--HgbA1C levels may not be accurate in patients who have renal disease, received recent blood transfusions, are anemic, or who have dyshemoglobinemia. Performed By: #### L AB90 ####Numerical Control [employer]ill Press Operator: NIEVES RUIZ ([id number])[facility] ([facility])[address] Laboratory - Chemistry and C hemistry - challengeon 11-02-2024 Glucose [Mass/Vol] 231 mg/dL High 70 - 100 mg/dL [facility] Glucose [Mass/Vol] 239 mg/dL High 70 - 100 mg/dL [facility] Glucose [Mass/Vol] 298 mg/dL High 70 - 100 mg/dL [facility] Glucose [Mass/Vol] 212 mg/dL High 70 - 100 mg/dL [facility] Average glucose Estimated from glycated hemoglobin (Bld) [Mass/Vol] 324 mg/dL [facility] Glucose [Mass/Vol] 319 mg/dL High 70 - 100 mg/dL [facility] Ammonia (P) [Moles/Vol] 31 umol/L 18 - 72 umol/L [facility] Comment on above: TC Hemolyzed samples should not be used. TSH Qn 3.03 m[IU]/L [facility] Beta hydroxybutyrate [Mass/Vol] 24.9 mg/dL High NINF - 2.8 mg/dL [facility] Magnesium [Mass/Vol] 1.8 mg/dL 1.6 - 2 .6 mg/dL [facility] Laboratory - Drug toxicology on 11-02-2024 Amphetamines Screen method >1000 ng/mL Ql (U) Negative [facility] Barbiturates Screen method >200 ng/mL Ql (U) Negative [facility] Benzodiazepines Ql (U) Negative [facility] Methadone Screen Ql (U) Negative [facility] Opiates Screen Ql (U) Negative [facility] oxyCODONE Ql (U) Negative [facility] Phencyclidine Ql (U) Negative [facility] Laboratory - Hematology and Cell countson 11-02-2024 HbA1c (Bld) [Mass fraction] 12.9 % High [facility] Comment on above: Normal less than 5.7 % Prediabetes 5.7% to 6.4% Diabetes 6.5% or higher --HgbA1C levels may not be accurate in patients who have renal disease, received recent blood transfusions, are anemic, or who have dyshemoglobinemia. Band form neutrophils (Bld) [#/Vol] 0.7 10*3/uL High NINF - 0.0 10*3/uL [facility] Band form neutrophils/100 WBC (Bld) 7 % High NINF - 0 % [facility] Eosinophils (Bld) [#/Vol] 0.1 10*3/uL 0. 0 - 0.5 10*3/uL [facility] Eosinophils/100 WBC (Bld) 1 % 0 - 6 % [facility] Lymphocytes (Bld) [#/Vol] 0.8 10*3/uL Low 1. 0 - 4.3 10*3/uL [facility] Lymphocytes/100 WBC (Bld) 8 % Low 15 - 45 % [facility] Metamyelocytes (Bld) [#/Vol] 0.1 10*3/uL High NINF - 0.0 10*3/uL [facility] Metamyelocytes/100 WBC (Bld) 1 % High [facility] - 0 % [facility] Monocytes (Bld) [#/Vol] 0.4 10*3/uL 0.0 - 0.9 10*3/uL [facility] Monocytes/100 WBC (Bld) 4 % Low 5 - 13 % [facility] Neutrophils (Bld) [#/Vol] 8.2 10*3/uL High 1. 8 - 7.5 10*3/uL [facility] Polychromasia LM Ql (Bld) Slight Abnormal (none) [facility] RBC morphology finding Nom (Bld) abnormal [facility] Segmented neutrophils/100 WBC (Bld) 79 % 38 - 82 % [facility] MAGNESIUMon 11-02-2024 Magnesium [Mass/Vol] 1.8 mg/dL Normal 1.6-2.6 [facility] Comment on above: Result Comment: SUNG Bryan COMMENTS:Higher values can be expected in females during menses. Performed By: #### L [id number], DAB515, JIO152, LAB15, [id number] ####[employer] Press Operator: NIEVES RUIZ ([phone])[facility] ([facility])[address] [place] [address] MANUAL DIFFERENTIAL (CELLAVI AILYN)on 11-02-2024 BAND NEUTROPHILS TOTAL PER COUNTED LEUKOCYTES BY MANUAL COUNT 7 Normal [facility] Comment on above: Performed By: #### L [id number], [id number] ####[employer] Operator: NIEVES RUIZ ([phone])[facility] ([facility])[address] [place] [address] BANDS (10*3/UL) IN BLOOD-CELLAVISION 0.7 10*3/uL High <=0.0 [facility] Comment on above: Performed By: #### L [id number], [id number] ####[employer] Operator: NIEVES RUIZ ([phone])[facility] ([facility])[address] [place] [address] [place] BASOPHILS TOTAL PER COUNTED LEUKOCYTES BY MANUAL COUNT Normal [facility] Comment on above: Performed By: #### L [id number], [id number] ####[employer] Operator: NIEVES RUIZ ([id number])[facility])[address] [place] [address] BLASTS TOTAL PER COUNTED LEUKOCYTES BY MANUAL COUNT Normal [facility] Comment on above: Performed By: #### L [id number], [id number] ####[employer] Operator: NIEVES RUIZ ([phone])[facility])[address] [place] [address] EOSINOPHILS (10*3/UL) IN BLOOD-CELLAVISION 0.1 10*3/uL Normal 0.0-0.5 [facility] Comment on above: Performed By: #### L [id number], [id number] ####Numerical Control Drill Press Operator: NIEVES RUIZ ([phone])[facility])[address] [place] [address] [place] EOSINOPHILS TOTAL PER COUNTED LEUKOCYTES BY MANUAL COUNT 1 Normal 0-1 [facility] Comment on above: Performed By: #### L [id number], [id number] ####Numerical Control Drill Press Operator: NIEVES RUIZ ([phone])[facility] ([facility])[address] [place] [address] [place] EOSINOPHILS/100 LEUKOCYTES IN BLOOD-CELLAVISION 1 % Normal 0-6 [facility] Comment on above: Performed By: #### L [id number], [id number] ####Numerical Control Drill Press Operator: NIEVES RUIZ ([phone])[facility] ([facility])[address] [place] [address] [place] LYMPHOCYTES (10*3/UL) IN BLOOD-CELLAVISION 0.8 10*3/uL Low 1.0-4.3 [facility] Comment on above: Performed By: #### L [id number], [id number] ####Numerical Control Drill Press Operator: NIEVES RUIZ ([phone])[facility] ([facility])[address] [place] [address] [place] LYMPHOCYTES TOTAL PER COUNTED LEUKOCYTES BY MANUAL COUNT 8 Normal [facility] Comment on above: Performed By: #### L [id number], [id number] ####Numerical Control Drill Press Operator: NIEVES RUIZ ([phone])[facility] ([facility])[address] [place] [address] [place] LYMPHOCYTES/100 LEUKOCYTES IN BLOOD-CELLAVISION 8 % Low 15-45 [facility] Comment on above: Performed By: #### L [id number], [id number] ####Numerical Control Drill Press Operator: NIEVES RUIZ ([phone])[facility] ([facility])[address] [place] [address] [place] METAMYELOCYTES (10*3/UL) IN BLOOD-CELLAVISION 0.1 10*3/uL High <=0.0 [facility] Comment on above: Performed By: #### L [id number], [id number] ####Numerical Control Drill Press Operator: NIEVES RUIZ ([phone])[facility] ([facility])[address] [place] [address] [place] METAMYELOCYTES TOTAL PER COUNTED LEUKOCYTES BY MANUAL COUNT 1 Normal [facility] Comment on above: Performed By: #### L [id number], [id number] ####Numerical Control Drill Press Operator: NIEVES RUIZ ([phone])[facility])[address] [place] [address] [place] METAMYELOCYTES/100 LEUKOCYTES IN BLOOD-CELLAVISION 1 % High <=0 [facility] Comment on above: Performed By: #### L [id number], [id number] ####Numerical Control Drill Press Operator: NIEVES RUIZ ([phone])[facility])[address] [place] [address] MONOCYTES (10*3/UL) IN BLOOD-CELLAVISION 0.4 10*3/uL Normal 0.0-0.9 [facility] Comment on above: Performed By: #### L [id number], [id number] ####Numerical Control Drill Press Operator: NIEVES RUIZ ([phone])[facility])[address] [place] [address] MONOCYTES TOTAL PER COUNTED LEUKOCYTES BY MANUAL COUNT 4 Normal [facility] Comment on above: Performed By: #### L [id number], [id number] ####Numerical Control Drill Press Operator: NIEVES RUIZ ([phone])[facility])[address] [place] [address] [place] MONOCYTES/100 LEUKOCYTES IN BLOOD-DANY 4 % Low 5-13 [facility] Comment on above: Performed By: #### L [id number], [id number] ####Numerical Control Drill Press Operator: NIEVES RUIZ ([phone])[facility])[address] [place] [address] MYELOCYTES COUNTED BY MANUAL COUNT Normal [facility] Comment on above: Performed By: #### L [id number], [id number] ####Numerical Control Drill Press Operator: NIEVES RUIZ ([phone])[facility])[address] [place] [address] NEUTROPHILS BAND FORM/100 LEUKOCYTES IN BLOOD-CELLAVISI 7 % High <=0 [facility] Comment on above: Performed By: #### L [id number], [id number] ####Numerical Control Drill Press Operator: NIEVES [id number])[facility] ([facility])[address] [place] [address] [place] NEUTROPHILS TOTAL PER COUNTED LEUKOCYTES BY MANUAL COUNT 80 Normal [facility] Comment on above: Performed By: #### L [id number], [id number] ####Numerical Control Drill Press Operator: NIEVES RUIZ ([phone])[facility] ([facility])[address] [place] [address] POLYCHROMASIA IN BLOOD BY LIGHT MICROSCOPY Slight Abnormal (none) [facility] Comment on above: Performed By: #### L [id number], [id number] ####Numerical Control Drill Press Operator: NIEVES RUIZ ([phone])[facility] ([facility])[address] [place] [address] [place] PROMYELOCYTES TOTAL PER COUNTED LEUKOCYTES BY MANUAL COUNT Normal [facility] Comment on above: Performed By: #### L [id number], [id number] ####Numerical Control Drill Press Operator: NIEVES RUIZ ([phone])[facility] ([facility])[address] [place] [address] RBC MORPHOLOGY IN BLOOD abnormal Normal S [facility] Comment on above: Performed By: #### L [id number], [id number] ####Numerical Control Drill Press Operator: NIEVES RUIZ ([phone])[facility] ([facility])[address] [place] [address] [place] SEGMENTED NEUTROPHILS (10*3/UL) IN BLOOD-CELLAVISION 8.2 10*3/uL High 1.8-7.5 [facility] Comment on above: Performed By: #### L [id number], [id number] ####Numerical Control Drill Press Operator: NIEVES RUIZ ([phone])[facility] ([facility])[address] [place] [address] [place] SEGMENTED NEUTROPHILS/100 LEUKOCYTES-CE 79 % Normal 38-82 [facility] Comment on above: Performed By: #### L [id number], [id number] ####Numerical Control Drill Press Operator: NIEVES RUIZ ([id number])[facility] ([facility])[address] [place] [address] [place] UNCLASSIFIED CELLS TOTAL PER COUNTED LEUKOCYTES BY MANUAL COUNT [facility] Comment on above: Performed By: #### L [id number], [id number] ####Numerical Control Drill Press Operator: NIEVES RUIZ ([phone])[facility] ([facility])[address] [place] [address] VARIANT LYMPHOCYTES TOTAL PER COUNTED LEUKOCYTES BY MANUAL COUNT Normal [facility] Comment on above: Performed By: #### L [id number], [id number] ####Numerical Control Drill Press Operator: NIEVES RUIZ ([phone])[facility] ([facility])[address] [place] [address] Magnesium [Mass/Vol]on 11-02 Higher values can be expected in females during menses. [facility] No Panel Informationon 11-02 Interpretation and review of laboratory results Abnormal [facility] Performed by: [facility], [address] [place] [address] CLIA ID: [id number] [facility] Interpretation and review of laboratory results Abnormal [facility] Performed by: [facility], [address] [place] [address] CLIA ID: [id number] [facility] Interpretation and review of laboratory results Abnormal [facility] Performed by: [facility], [address] [place] [address] CLIA ID: [id number] [facility] Interpretation and review of laboratory results Abnormal [facility] Performed by: [facility], [address] [place] [address] CLIA ID: [id number] [facility] Interpretation and review of laboratory results Abnormal [facility] HbA1c values of 5.7-6.4 percent indicate an increased risk for developing diabetes mellitus. HbA1c values greater than or equal to 6.5 percent are diagnostic of diabetes mellitus. For diagnosis of diabetes in individuals without unequivocal hyperglycemia, results should be confirmed by repeat testing. [facility] P [place] 0 degrees [facility] OR Interval 0 ms [facility] QRS [place] -49 degrees [facility] QRSD Interval 110 ms [facility] QT Interval 365 ms [facility] QTC Interval 463 ms [facility] T Wave [place] 98 degrees [facility] Atrial fibrillation Left anterior fascicular block LVH with secondary repolarization abnormality Anterior Q waves, possibly due to LVH Electronically Signed On 11-02-2024 08:32:22 EDT by Jose Martin Faustin Jose Martin Perez MD - 11/02/2024 IMPRESSION: Atrial fibrillation Left anterior fascicular block LVH with secondary repolarization abnormality Anterior Q waves, possibly due to LVH Electronically Signed On 11-02-2024 08:32:22 EDT by Jose Martin Faustin [facility] Atrial fibrillation Left anterior fascicular block LVH with secondary repolarization abnormality Anterior Q waves, possibly due to LVH Electronically Signed On 11-02-2024 08:29:48 EDT by Jose Martin Faustin Jose Martin Perez MD - 11/02/2024 IMPRESSION: Atrial fibrillation Left anterior fascicular block LVH with secondary repolarization abnormality Anterior Q waves, possibly due to LVH Electronically Signed On 11-02-2024 08:29:48 EDT by Jose Martin Francoisowell [facility] Interpretation and review of laboratory results Abnormal [facility] Performed by: [facility], [address] [place] [address] CLIA ID: [id number] [facility] Atrial fibrillation Left anterior fascicular block LVH with secondary repolarization abnormality Anterior Q waves, possibly due to LVH Electronically Signed On 11-02-2024 07:24:05 EDT by Cameron Rey MD - 11/02/2024 IMPRESSION: Atrial fibrillation Left anterior fascicular block LVH with secondary repolarization abnormality Anterior Q waves, possibly due to LVH Electronically Signed On 11-02-2024 07:24:05 EDT by Cameron Doradohta [facility] Interpretation and review of laboratory results Normal [facility] Atypical Lymphocytes Manual [facility] Health Bands Manual 7 [facility] Health Basophils Manual [facility] Blasts Manual [facility] Eosinophils Manual 1 0 - 1 [facility] Interpretation and review of laboratory results Abnormal [facility] th Lymphocytes Manual 8 [facility] Metamyelocytes Manual 1 [facility] Monocytes Manual 4 [facility] He alth Myelocytes Manual [facility] ealth Neutrophils Manual 80 [facility] Promyelocytes Manual [facility] Unclassified Cells, Manual [facility] COCAINE METAB. SCREEN Negative Sum [facility] FENTANYL SCREEN, UR QUAL Negative [facility] The expected value for all of the drugs listed above is Negative. The following drugs or drug groups have been screened for by Immunoassay at the following thresholds: Amphetamine class (1000 ng/mL) Barbiturates (200 ng/mL) Benzodiazepines (200 ng/mL) Cocaine (300 ng/mL) Methadone (300 ng/mL) Opiates (300 ng/mL) Oxycodone (100 ng/mL) PCP (25 ng/mL) Fentanyl (1.0 ng/ml) NOTE: These results are for medical treatment only. Analysis performed using non-forensic procedures. POSITIVE results are NOT confirmed by a more specific alternative method unless requested. If confirmation is needed, request confirmation under separate order. [facility] Interpretation and review of laboratory results Normal [facility] Interpretation and review of laboratory results Abnormal [facility] 4h Troponin HS (Serial 3rd Troponin) 128 ng/L High NINF - 14 ng/L [facility] Comment on above: Rising or falling tr oponin delta below 2 ng/L as compared to 2h troponin value suggests that acute cardiac injury is unlikely. Interpretation and review of laboratory results Abnormal [facility] No Panel InformationOrdered By: Jose Martin Faustin on 11-02-2024 P [place] 0 degrees [facility] [employer] Work Phone: OR Interval 0 ms [facility] [employer] Work Phone: QRS [place] -49 degrees [facility] [employer] Work Phone: QRSD Interval [address] [facility] h Work Phone: QT Interval 331 ms [facility] [employer] Work Phone: QTC Interval 460 ms [facility] [employer] Work Phone: T Wave [place] 113 degrees [facility] [employer] Work Phone: [facility] [employer] Work Phone: No Panel InformationOrdered By: Cameron Rodriguez on 11-02-2024 P [place] 0 degrees [facility] [employer] Work Phone: OR Interval 0 ms [facility] Work Phone: QRS [place] -50 degrees [facility] [employer] Work Phone: QRSD Interval 94 ms [facility] Work Phone: QT Interval 297 ms [facility] Work Phone: QTC Interval 453 ms [facility] Work Phone: T Wave [place] 88 degrees [facility] [employer] Work Phone: [facility] [employer] Work Phone: Nursing Noteon 11-02-2024 Nursing Note Normal [facility] PHOSPHORUSon 11-02-2024 Phosphate [Mass/Vol] 2.8 mg/dL Normal 2.3-4.7 [facility] Comment on above: Performed By: #### L [id number], [id number], [id number], LAB15, [id number] ####Numerical Control Drill Press Operator: NIEVES RUIZ ([phone])[facility] ([facility])[address] [place] [address] [place] Phosphate [Moles/Vol]on 10-21 Phosphate [Mass/Vol] 2.8 mg/dL 2.3 - 4 .7 mg/dL [facility] Progress Noteon 11-02-2024 Progress Note Normal [facility] Progress Note Normal [facility] THYROID STIMULATING HORMONEo n 11-02-2024 THYROID STIMULATING HORMONE 3.03 uIU/mL Normal 0.35-4.94 [facility] Comment on above: Performed By: #### L [id number], [id number], [id number], LAB15, [id number] ####Numerical Control Drill Press Operator: NIEVES RUIZ ([phone])[facility] ([facility])[address] [place] [address] [place] TSH Qnon 11-02-2024 Interpretation and review of laboratory results Normal [facility] US Kidneyon 11-02-2024 Impression: 1. Mildly increased bilateral renal echotexture; correlate with chronic medical renal disease. 2. Tiny, nonspecific amount of bilateral perinephric free fluid. Report Dictated on Electronically Signed By: Ricky Barfield MD Electronically Signed Date/Time: 11/02/2024 7:57 AM EDT [facility] Patient Name: DAMEON POTTER : 1955 Exam Date/Time: 11/02/2024 07:26 Procedure: US RENAL COMPLETE Ordering Provider: KINGSTON OSAMA Reason For Exam: ACUTE KIDNEY INJURY Examination: Renal ultrasound Clinical Indication: Acute Kidney Injury Comparison: Correlation with CT December 04, 2023 and ultrasound June 20, 2017 Findings: Multiplanar grayscale sonographic images were obtained through the kidneys and bladder. The right kidney measures 12.0 x 5.3 x 5.4 cm. Multiple renal cysts are present measuring, including a 1.4 cm superior pole cyst. No solid renal parenchymal lesion, hydronephrosis, or shadowing renal calculus. Mildly increased renal echotexture. The left kidney measures 11.9 x 5.6 x 6.3 cm. No renal cysts. No solid renal parenchymal lesion, hydronephrosis, or shadowing renal calculus. Mildly increased renal echotexture. Tiny, nonspecific amount of perinephric free fluid. Ultrasound images through the bladder demonstrate no gross evidence of bladder wall thickening. [facility] Ricky Barfield MD - 11/02/2024 Patient Name: DAMEON POTTER : 1955 Exam Date/Time: 11/02/2024 07:26 Procedure: US RENAL COMPLETE Ordering Provider: KINGSTON OSAMA Reason For Exam: ACUTE KIDNEY INJURY Examination: Renal ultrasound Clinical Indication: Acute Kidney Injury Comparison: Correlation with CT December 04, 2023 and ultrasound June 20, 2017 Findings: Multiplanar grayscale sonographic images were obtained through the kidneys and bladder. The right kidney measures 12.0 x 5.3 x 5.4 cm. Multiple renal cysts are present measuring, including a 1.4 cm superior pole cyst. No solid renal parenchymal lesion, hydronephrosis, or shadowing renal calculus. Mildly increased renal echotexture. The left kidney measures 11.9 x 5.6 x 6.3 cm. No renal cysts. No solid renal parenchymal lesion, hydronephrosis, or shadowing renal calculus. Mildly increased renal echotexture. Tiny, nonspecific amount of perinephric free fluid. Ultrasound images through the bladder demonstrate no gross evidence of bladder wall thickening. IMPRESSION: Impression: 1. Mildly increased bilateral renal echotexture; correlate with chronic medical renal disease. 2. Tiny, nonspecific amount of bilateral perinephric free fluid. Report Dictated on Electronically Signed By: Ricky Barfield MD Electronically Signed Date/Time: 11/02/2024 7:57 AM EDT [facility] [employer] Radiology Study observation (narrative) [facility] US KidneyOrdered By: Ricky perry on 11-02-2024 [employer] Work Phone: US RENAL COMPLETEon 11-03-19 25 US RENAL COMPLETE Normal [facility] [employer] [facility] Vital signson 11-02-2024 Heart rate 97 /min bpm [facility] [employer] Vital signsOrdered By: Jose Martin Faustin on 11-02-2024 Heart rate 116 /min bpm [employer] Phone: Vital signsOrdered By: Concepcion Rodriguez on 11-02-2024 Heart rate 139 /min bpm [employer] Phone: aPTT Coag (Bld) [Time]on aPTT Coag (PPP) [Time] 21.1 s 20.0 - 30.5 s [facility] Interpretation and review of laboratory results Normal [facility] NOTE: The therapeuti c time for Heparin anticoagulation, based on Xa activity inhibition, is an APTT of 46-80 seconds. [facility] 36on 11-01-2024 36 Normal [facility] BASIC METABOLIC PANELon 10-21 Anion gap [Moles/Vol] 15 mmol/L High 3-13 [facility] Comment on above: Performed By: #### L [id number], [id number], LAB15 ####Numerical Control Drill Press Operator: NIEVES RUIZ ([phone])[facility] ([address] Calcium [Mass/Vol] 8.9 mg/dL Normal 8.8-10.0 [facility] Comment on above: Result Comment: TCPo tential interference from lipemia Performed By: #### L [id number], [id number], LAB15 ####Numerical Control Drill Press Operator: NIEVES RUIZ ([phone])[facility] ([facility])[address] [place] [address] [place] Chloride [Moles/Vol] 102 mmol/L Normal 98-107 [facility] Comment on above: Performed By: #### L [id number], [id number], LAB15 ####Numerical Control Drill Press Operator: NIEVES RUIZ ([phone])[facility] ([facility])[address] [place] [address] CO2 [Moles/Vol] 17 mmol/L Low 23-31 [facility] Comment on above: Performed By: #### Wayne RAY6, [id number], LAB15 ####Numerical Control Dr[employer] Press Operator: NIEVES RUIZ ([phone])[facility] ([facility])[address] [place] [address] Creatinine [Mass/Vol] 1.43 mg/dL High 0.57-1.11 [facility] Comment on above: Result Comment: TCPo tential interference from lipemia Performed By: #### Wayne RAY6, [id number], LAB15 ####Numerical Control Dr[employer] Press Operator: NIEVES RUIZ ([phone])[facility] ([facility])[address] [place] [address] [place] GLOMERULAR FILTRATION RATE ML/MIN/1.73 SQ M.PREDICTED 39.8 mL/min/1.73m*2 Low >60.0 [facility] Comment on above: Result Comment: Calc ulation based on the Chronic Kidney Disease Epidemiology Collaboration (CKD-EPI) equation refit without adjustment for race Performed By: #### L [id number], [id number], LAB15 ####Numerical Control Dr[employer] Press Operator: NIEVES RUIZ ([phone])[facility] ([facility])[address] [place] [address] [place] Glucose [Mass/Vol] 276 mg/dL High 82-115 [facility] Comment on above: Performed By: #### L [id number], [id number], LAB15 ####Numerical Control Drill Press Operator: NIEVES RUIZ ([phone])[facility])[address] [place] [address] Potassium [Moles/Vol] 3.7 mmol/L Normal 3.5-5.1 [facility] Comment on above: Performed By: #### L [id number], [id number], LAB15 ####Numerical Control Drill Press Operator: NIEVES RUIZ ([phone])[facility] ([facility])[address] [place] [address] Sodium [Moles/Vol] 134 mmol/L Low 136-145 [facility] Comment on above: Performed By: #### L [id number], [id number], LAB15 ####Numerical Control Dr[employer] Press Operator: NIEVES RUIZ ([phone])[facility])[address] [place] [address] Urea nitrogen [Mass/Vol] 31 mg/dL High 9-23 [facility] Comment on above: Performed By: #### L [id number], [id number], LAB15 ####Numerical Control Dr[employer] Press Operator: NIEVES RUIZ ([phone])[facility])[address] [place] [address] BETA HYDROXYBUTYRATEon 11-01 BETA HYDROXYBUTYRATE 21.0 mg/dL High <=2.8 [facility] Comment on above: Performed By: #### L [id number], [id number], LAB15 ####Numerical Control Drill Press Operator: NIEVES RUIZ ([phone])[facility])[address] [place] [address] BETA HYDROXYBUTYRATE 50.7 mg/dL High <=2.8 [facility] Comment on above: Performed By: #### L AB113, [id number], LAB99, [id number], FNF809, [id number], LAB17, [id number] ####Numer[employer] Operator: NIEVES RUIZ ([phone])[facility])[address] [place] [address] BLOOD GAS, VENOUSon 11-02-19 25 AMOUNT OF OXYGEN Normal [facility] Comment on above: Result Comment: SUNG Bryan COMMENTS:Assessment of oxygenation is best done with an arterial blood gas determination. Reference ranges for pO2, bicarbonate, and base excess are for mixed venous blood. Specimens drawn from a peripheral vein will often have higher values. Performed By: #### L AB79 ####[employer] Operator: NIEVES RUIZ ([phone])[facility])[address] [place] [address] Base excess Calc (BldV) [Moles/Vol] -6.1000 mmol/L Low -3.0-3.0 [facility] Comment on above: Performed By: #### L AB79 ####Numer[employer] Control [employer] Press Operator: NIEVES RUIZ ([phone])[facility])[address] [place] [address] CO2 [Moles/Vol] 18.0 mmol/L Low 24.0-28.0 [facility] Comment on above: Performed By: #### L AB79 ####Numerical Control Drill Press Operator: NIEVES RUIZ ([phone])[facility])[address] [place] [address] HCO3 (Bld) [Moles/Vol] 17.2 mmol/L Low 23.0-27.0 [facility] Comment on above: Performed By: #### L AB79 ####Numerical Control [employer] Press Operator: NIEVES RUIZ ([phone])[facility])[address] [place] [address] Hemoglobin (Bld) [Mass/Vol] 14.2 g/dL Normal Screen only [facility] Comment on above: Performed By: #### L AB79 ####[employer] Operator: NIEVES RUIZ ([phone])[facility])[address] [place] [address] OXYGEN (MM HG) IN VENOUS BLOOD 42.3 mm Hg Normal [facility] Comment on above: Performed By: #### L AB79 ####Numer[employer] Operator: NIEVES RUIZ ([phone])[facility])[address] [place] [address] OXYGEN SATURATION (%) IN VENOUS BLOOD 75.8 % Normal [facility] Comment on above: Performed By: #### L AB79 ####[employer] Press Operator: NIEVES RUIZ ([phone])[facility] ([facility])[address] [place] [address] PCO2, WAQAR 28.2 mm Hg Low 40.0-55.0 [facility] Comment on above: Performed By: #### L AB79 ####[employer] Operator: NIEVES RUIZ ([phone])[facility] ([facility])[address] [place] [address] PH VENOUS 7.402 Normal 7.330-7.430 [facility] Comment on above: Performed By: #### L AB79 ####[employer] Operator: NIEVES RUIZ ([phone])[facility] ([facility])[address] [place] [address] SOURCE OF OXYGEN None (Room Air) Normal [facility] Comment on above: Performed By: #### L AB79 ####[employer] Operator: NIEVES RUIZ ([phone])[facility] ([facility])[address] [place] [address] Basic metabolic 1998 panelOr dered By: Shi Fowler on 11-01-2024 Anion gap [Moles/Vol] 15 mmol/L High 3 - 13 mmol/L [facility] Calcium [Mass/Vol] 8.9 mg/dL 8.8 - 10. 0 mg/dL [facility] Comment on above: TC Potential interference from lipemia Chloride [Moles/Vol] 102 mmol/L 98 - 10 7 mmol/L [facility] CO2 [Moles/Vol] 17 mmol/L Low 23 - 31 mmol/L [facility] Creatinine [Mass/Vol] 1.43 mg/dL High 0.57 - 1.11 mg/dL [facility] Comment on above: TC Potential interference from lipemia GFR/1.73 sq M.predicted (S/P/Bld) [Vol rate/Area] 39.8 mL/min Low - PINF [facility] Comment on above: Calculation based on the Chronic Kidney Disease Epidemiology Collaboration (CKD-EPI) equation refit without adjustment for race Glucose [Mass/Vol] 276 mg/dL High 82 - 115 mg/dL [facility] Interpretation and review of laboratory results Abnormal [facility] Potassium [Moles/Vol] 3.7 mmol/L 3.5 - 5.1 mmol/L [facility] Sodium [Moles/Vol] 134 mmol/L Low 136 - 145 mmol/L [facility] Urea nitrogen [Mass/Vol] 31 mg/dL High 9 - 23 mg/dL [facility] CBC W Auto Differential pane l (Bld)Ordered By: Ebony Thompson on 11-01-2024 Basophils (Bld) [#/Vol] 0 10*3/uL 0.0 - 0.2 10*3/uL [facility] Basophils/100 WBC (Bld) 0.3 % 0.0 - 2.0 % [facility] Eosinophils (Bld) [#/Vol] 0 10*3/uL 0. 0 - 0.5 10*3/uL [facility] Eosinophils/100 WBC (Bld) 0.1 % 0.0 - 6.0 % [facility] Erythrocyte distribution width (RBC) [Ratio] 13.4 % 11.5 - 15.0 % [facility] Hematocrit (Bld) [Volume fraction] 39.5 % 35.0 - 47.0 % [facility] Hemoglobin (Bld) [Mass/Vol] 13.6 g/dL 11.7 - 16.0 g/dL [facility] Immature granulocytes (Bld) [#/Vol] 0.1 10*3/uL High NINF - 0.1 10*3/uL [facility] Immature granulocytes/100 WBC (Bld) 0.5 % 0.0 - 2.0 % [facility] Interpretation and review of laboratory results Abnormal [facility] Lymphocytes (Bld) [#/Vol] 0.4 10*3/uL Low 1. 0 - 4.3 10*3/uL [facility] Lymphocytes/100 WBC (Bld) 4.1 % Low 15 .0 - 45.0 % [facility] MCH (RBC) [Entitic mass] 29 pg 26. 0 - 34.0 pg [facility] MCHC (RBC) [Mass/Vol] 34.4 % 30.5 - 36.0 % [facility] MCV (RBC) [Entitic vol] 84.2 fL 77.0 - 99.0 fL [facility] Monocytes (Bld) [#/Vol] 0.7 10*3/uL 0.0 - 0.9 10*3/uL [facility] Monocytes/100 WBC (Bld) 6.7 % 5.0 - 13.0 % [facility] Neutrophils (Bld) [#/Vol] 8.9 10*3/uL High 1. 8 - 7.5 10*3/uL [facility] Neutrophils/100 WBC (Bld) 88.3 % High 38 .0 - 82.0 % [facility] Nucleated RBC/100 WBC (Bld) [Ratio] 0 % [facility] Platelet mean volume (Bld) [Entitic vol] 12.6 fL 9.0 - 12.7 fL [facility] Platelets (Bld) [#/Vol] 191 10*3/uL 140 - 440 10*3/uL [facility] RBC (Bld) [#/Vol] 4.69 10*6/uL 3.80 - 5.2 0 10*6/uL [facility] WBC (Bld) [#/Vol] 10.1 10*3/uL 3.6 - 10.7 10*3/uL [facility] CBC WITH AUTO DIFFERENTIALon 11-01-2024 Basophils (Bld) [#/Vol] 0.0 10*3/uL Normal 0.0-0.2 [facility] Comment on above: Performed By: #### L [id number] ####[employer] Operator: NIEVES [phone])[facility])[address] [place] [address] Basophils/100 WBC (Bld) 0.3 % Normal 0.0-2.0 [facility] Comment on above: Performed By: #### L [id number] ####[employer] Operator: NIEVES [id number])[facility] ([facility])[address] [place] [address] Eosinophils (Bld) [#/Vol] 0.0 10*3/uL Normal 0.0-0.5 [facility] Comment on above: Performed By: #### L [id number] ####[employer] Operator: NIEVES [phone])[facility])[address] [place] [address] Eosinophils/100 WBC (Bld) 0.1 % Normal 0.0-6.0 [facility] Comment on above: Performed By: #### L [id number] ####[employer] Operator: NIEVES RUIZ ([phone])[facility])[address] [place] [address] Erythrocyte distribution width (RBC) [Ratio] 13.4 % Normal 11.5-15.0 [facility] Comment on above: Performed By: #### L [id number] ####[employer] Operator: NIEVES RUIZ ([phone])[facility])[address] [place] [address] Hematocrit (Bld) [Volume fraction] 39.5 % Normal 35.0-47.0 [facility] Comment on above: Performed By: #### L [id number] ####[employer] Operator: NIEVES RUIZ ([phone])[facility])[address] [place] [address] Hemoglobin (Bld) [Mass/Vol] 13.6 g/dL Normal 11.7-16.0 [facility] Comment on above: Performed By: #### L [id number] ####[employer] Operator: NIEVES RUIZ ([phone])[facility])[address] [place] [address] IMMATURE GRANS % 0.5 % Normal 0.0-2.0 [facility] Comment on above: Performed By: #### L [id number] ####[employer] Operator: NIEVES RUIZ ([phone])[facility])[address] [place] [address] IMMATURE GRANS ABSOLUTE 0.1 10*3/uL High <0.1 [facility] Comment on above: Performed By: #### L [id number] ####[employer] Operator: NIEVES RUIZ ([phone])[facility])[address] [place] [address] Lymphocytes (Bld) [#/Vol] 0.4 10*3/uL Low 1.0-4.3 [facility] Comment on above: Performed By: #### L [id number] ####[employer] Operator: NIEVES RUIZ ([phone])[facility])[address] [place] [address] Lymphocytes/100 WBC (Bld) 4.1 % Low 15.0-45.0 [facility] Comment on above: Performed By: #### L [id number] ####[employer] Operator: NIEVES RUIZ ([phone])[facility])[address] [place] [address] MCH (RBC) [Entitic mass] 29.0 pg Normal 26.0-34.0 [facility] Comment on above: Performed By: #### L [id number] ####[employer] Operator: NIEVES RUIZ ([phone])[facility])[address] [place] [address] MCHC 34.4 % Normal 30.5-36.0 [facility] Comment on above: Performed By: #### L [id number] ####[employer] Operator: NIEVES RUIZ ([phone])[facility])[address] [place] [address] MCV (RBC) [Entitic vol] 84.2 fL Normal 77.0-99.0 [facility] Comment on above: Performed By: #### L [id number] ####[employer] Operator: NIEVES RUIZ ([phone])[facility])[address] [place] [address] Monocytes (Bld) [#/Vol] 0.7 10*3/uL Normal 0.0-0.9 [facility] Comment on above: Performed By: #### L [id number] ####[employer] Operator: NIEVES RUIZ ([phone])[facility])[address] [place] [address] Monocytes/100 WBC (Bld) 6.7 % Normal 5.0-13.0 [facility] Comment on above: Performed By: #### L [id number] ####[employer] Operator: NIEVES RUIZ ([phone])[facility] ([facility])[address] [place] [address] NEUTROPHILS ABSOLUTE 8.9 10*3/uL High 1.8-7.5 [facility] Comment on above: Performed By: #### L [id number] ####[employer] Operator: NIEVES RUIZ ([phone])[facility] ([facility])[address] [place] [address] Neutrophils/100 WBC (Bld) 88.3 % High 38.0-82.0 [facility] Comment on above: Performed By: #### L [id number] ####[employer] Operator: NIEVES RUIZ ([phone])[facility] ([facility])[address] [place] [address] NRBC 0.0 /100 WBCs Normal 0.0-2.0 [facility] Comment on above: Performed By: #### L [id number] ####[employer] Operator: NIEVES RUIZ ([phone])[facility] ([facility])[address] [place] [address] Platelet mean volume (Bld) [Entitic vol] 12.6 fL Normal 9.0-12.7 [facility] Comment on above: Performed By: #### L [id number] ####[employer] Operator: NIEVES RUIZ ([phone])[facility] ([facility])[address] [place] [address] [place] Platelets (Bld) [#/Vol] 191 10*3/uL Normal 140-440 [facility] Comment on above: Performed By: #### L [id number] ####[employer] Operator: NIEVES RUIZ ([phone])[facility] ([facility])[address] [place] [address] RBC (Bld) [#/Vol] 4.69 10*6/uL Normal 3.80-5.20 [facility] Comment on above: Performed By: #### L [id number] ####[employer] Operator: NIEVES RUIZ ([phone])[facility])[address] [place] [address] WBC (Bld) [#/Vol] 10.1 10*3/uL Normal 3.6-10.7 [facility] Comment on above: Performed By: #### L [id number] ####[employer] Operator: NIEVES RUIZ ([phone])[facility])[address] [place] [address] COMPLETE URINALYSISon 2024 BACTERIA (#/HPF) IN URINE Moderate Abnormal Negative [facility] Comment on above: Performed By: #### L [id number], [id number] ####[employer] Operator: NIEVES RUIZ ([phone])[facility])[address] [place] [address] BILIRUBIN, TOTAL PRESENCE IN URINE Negative Normal Negative [facility] Comment on above: Performed By: #### L AB347, [id number] ####[employer] Operator: NIEVES RUIZ ([phone])[facility] ([facility])[address] [place] [address] Clarity (U) Turbid Abnormal Clear [facility] Comment on above: Performed By: #### L AB347, RGP235 ####[employer] Operator: NIEVES RUIZ ([phone])[facility])[address] [place] [address] Color (U) Yellow Normal Lt. Yellow [facility] Comment on above: Performed By: #### L AB347, [id number] ####[employer] Operator: NIEVES RUIZ ([phone])[facility] ([facility])[address] [place] [address] GLUCOSE (MG/DL) IN URINE >1,000 Abnormal Nor mal (<70) [facility] Comment on above: Performed By: #### L AB347, [id number] ####[employer] Operator: NIEVES RUIZ ([phone])[facility] ([facility])[address] [place] [address] HEMOGLOBIN PRESENCE IN URINE 0.2 mg/dL Abnormal Negative [facility] Comment on above: Performed By: #### L AB347, IHV042 ####[employer] Operator: NIEVES RUIZ ([phone])[facility] ([facility])[address] [place] [address] [place] HYALINE CASTS (#/LPF) IN URINE SEDIMENT BY MICROSCOPY 3-5 Abnormal Negative [facility] Comment on above: Performed By: #### L AB347, [id number] ####[employer] Operator: NIEVES RUIZ ([phone])[facility] ([facility])[address] [place] [address] Ketones Ql (U) 20 mg/dL Abnormal Negative [facility] Comment on above: Performed By: #### L AB347, [id number] ####[employer] Operator: NIEVES RUIZ ([phone])[facility] ([facility])[address] [place] [address] LEUKOCYTE ESTERASE PRESENCE IN URINE BY TEST STRIP 500 Rad/uL Abnormal Negative [facility] Comment on above: Performed By: #### L AB347, [id number] ####[employer] Operator: NIEVES RUIZ ([phone])[facility] ([facility])[address] [place] [address] [place] MUCUS (#/LPF) IN URINE SEDIMENT Few Normal Negative [facility] Comment on above: Performed By: #### L AB347, [id number] ####[employer] Operator: NIEVES RUIZ ([phone])[facility] ([facility])[address] [place] [address] NITRITE PRESENCE IN URINE Negative Normal Negative [facility] Comment on above: Performed By: #### L AB347, [id number] ####[employer] Operator: NIEVES RUIZ ([phone])[facility] ([facility])[address] [place] [address] pH (U) 5.5 [pH] Normal 5.0-8.0 [facility] Comment on above: Performed By: #### L AB347, WCL794 ####[employer] Operator: NIEVES RIUZ ([phone])[facility] ([facility])[address] [place] [address] [place] Protein (U) [Mass/Vol] 100 mg/dL Abnormal Negative [facility] Comment on above: Performed By: #### L AB347, [id number] ####[employer] Operator: NIEVES RUIZ ([phone])[facility] ([facility])[address] [place] [address] [place] RBC (#/HPF) IN URINE SEDIMENT 6-10 Abnormal 0-2 [facility] Comment on above: Performed By: #### L AB347, PSL102 ####[employer] Operator: NIEVES RUIZ ([phone])[facility] ([facility])[address] [place] [address] Specific gravity (U) [Rel density] 1.023 Normal 1.005-1.030 [facility] Comment on above: Performed By: #### L AB347, UHH121 ####[employer] Operator: NIEVES RUIZ ([phone])[facility] ([facility])[address] [place] [address] [place] SQUAMOUS EPITHELIAL CELLS (#/HPF) IN URINE SEDIMENT 3-5 Normal 3-5 [facility] Comment on above: Performed By: #### L AB347, KUX350 ####[employer] Operator: NIEVES RUIZ ([phone])[facility] ([facility])[address] [place] [address] [place] UROBILINOGEN (MG/DL) IN URINE Normal Normal Normal (0-1) [facility] Comment on above: Performed By: #### L AB347, [id number] ####[employer] Operator: NIEVES RUIZ ([phone])[facility] ([facility])[address] [place] [address] [place] WBC (LEUKOCYTE) (#/HPF) IN URINE SEDIMENT >100 Abnormal 0-5 [facility] Comment on above: Performed By: #### L AB347, ESU244 ####[employer] Operator: NIEVES RUIZ ([phone])[facility] ([facility])[address] [place] [address] [place] WBC (LEUKOCYTE) CLUMPS (#/HPF) IN URINE SEDIMENT Rare Abnormal Negative [facility] Comment on above: Performed By: #### L AB347, [id number] ####[employer] Operator: NIEVES RUIZ ([phone])[facility] ([facility])[address] [place] [address] YEAST (#/HPF) IN URINE Few Abnormal Negative [facility] Comment on above: Performed By: #### L AB347, OCK355 ####[employer] Operator: NIEVES RUIZ ([phone])[facility])[address] [place] [address] COMPREHENSIVE METABOLIC PANE Derek 11-01-2024 Albumin [Mass/Vol] 2.5 g/dL Low 3.4-4.8 [facility] Comment on above: Performed By: #### L AB113, [id number], LAB99, YKN179, TYJ634, UYL842, LAB17, [id number] ####[employer] Operator: NIEVES RUIZ ([phone])[facility] ([facility])[address] [place] [address] ALP [Catalytic activity/Vol] 99 U/L Normal 40-150 [facility] Comment on above: Performed By: #### L AB113, [id number], LAB99, PFX238, RJR562, YGN869, LAB17, [id number] ####[employer] Operator: NIEVES RUIZ ([phone])[facility] ([facility])[address] [place] [address] ALT [Catalytic activity/Vol] 9 U/L Normal <30 [facility] Comment on above: Performed By: #### L AB113, [id number], LAB99, LDN067, VFL523, YKW869, LAB17, [id number] ####[employer] Operator: NIEVES RUIZ ([phone])[facility])[address] [place] [address] Anion gap [Moles/Vol] 22 mmol/L High 3-13 [facility] Comment on above: Performed By: #### L AB113, [id number], LAB99, VZV157, WBY459, ZGW765, LAB17, [id number] ####[employer] Operator: NIEVES RUIZ ([phone])[facility] ([facility])[address] [place] [address] AST [Catalytic activity/Vol] 20 U/L Normal <34 [facility] Comment on above: Performed By: #### L AB113, [id number], LAB99, HDC081, LIY834, MWK186, LAB17, [id number] ####[employer] Operator: NIEVES RUIZ ([phone])[facility] ([facility])[address] [place] [address] Bilirubin [Mass/Vol] 1.3 mg/dL High <1.2 [facility] Comment on above: Performed By: #### L AB113, WUH5163, LAB99, TIZ425, GIV638, DOU567, LAB17, [id number] ####[employer] Operator: NIEVES RUIZ ([phone])[facility])[address] [place] [address] Calcium [Mass/Vol] 9.5 mg/dL Normal 8.8-10.0 [facility] Comment on above: Performed By: #### L AB113, [id number], LAB99, OYK324, OGH141, KUS550, LAB17, [id number] ####[employer] Operator: NIEVES RUIZ ([phone])[facility] ([facility])[address] [place] [address] Chloride [Moles/Vol] 95 mmol/L Low 98-107 [facility] Comment on above: Performed By: #### L AB113, FPH0113, LAB99, AQB964, THJ216, XXF061, LAB17, [id number] ####[employer] Operator: NIEVES RUIZ ([phone])[facility] ([facility])[address] [place] [address] [place] CO2 [Moles/Vol] 11 mmol/L Low 23-31 [facility] Comment on above: Performed By: #### L AB113, [id number], LAB99, GCM502, FUE228, VXY849, LAB17, [id number] ####[employer] Operator: NIEVES RUIZ ([phone])[facility] ([address] Creatinine [Mass/Vol] 1.62 mg/dL High 0.57-1.11 [facility] Comment on above: Performed By: #### L AB113, DAL7466, LAB99, KZR411, FAO083, RIM649, LAB17, [id number] ####[employer] Operator: NIEVES RUIZ ([phone])[facility])[address] [place] [address] GLOMERULAR FILTRATION RATE ML/MIN/1.73 SQ M.PREDICTED 34.3 mL/min/1.73m*2 Low >60.0 [facility] Comment on above: Result Comment: Calc ulation based on the Chronic Kidney Disease Epidemiology Collaboration (CKD-EPI) equation refit without adjustment for race Performed By: #### L AB113, [id number], LAB99, GAY932, DLL773, KEH238, LAB17, [id number] ####[employer] Operator: NIEVES RUIZ ([phone])[facility])[address] [place] [address] Glucose [Mass/Vol] 617 mg/dL Critically high 82-115 [facility] Comment on above: Performed By: #### L AB113, [id number], LAB99, YQM703, KKL615, BPO113, LAB17, [id number] ####[employer] Operator: NIEVES RUIZ ([phone])[facility] ([facility])[address] [place] [address] Potassium [Moles/Vol] 4.8 mmol/L Normal 3.5-5.1 [facility] Comment on above: Result Comment: [facility] potassium values may be up to 0.5 mmol/L lower than serum values. Performed By: #### L AB113, [id number], LAB99, VDU095, YHR754, KNP171, LAB17, [id number] ####[employer] Operator: NIEVES RUIZ ([phone])[facility] ([facility])[address] [place] [address] Protein [Mass/Vol] 7.3 g/dL Normal 6.4-8.3 [facility] Comment on above: Performed By: #### L AB113, ONU1850, LAB99, AZH247, ZIT047, DRV562, LAB17, [id number] ####[employer] Operator: NIEVES RUIZ ([phone])[facility])[address] [place] [address] Sodium [Moles/Vol] 128 mmol/L Low 136-145 [facility] Comment on above: Performed By: #### L AB113, XOK1946, LAB99, DKF281, NWY217, UHJ891, LAB17, [id number] ####[employer] Operator: NIEVES RUIZ ([phone])[address] Urea nitrogen [Mass/Vol] 30 mg/dL High 9-23 [facility] Comment on above: Performed By: #### L AB113, CVG4631, LAB99, IUB226, SCM677, SRX050, LAB17, [id number] ####[employer] Operator: NIEVES RUIZ ([phone])[facility])[address] [place] [address] CT HEAD WO IV CONTRASTon CT HEAD WO IV CONTRAST Normal [facility] CT Head WO contraston 2024 No acute intracrania l abnormality. Diffuse cortical volume loss and chronic small vessel ischemic changes. Report Dictated on Electronically Signed By: Anastasia Spencer MD Electronically Signed Date/Time: 11/01/2024 7:51 PM [facility] Patient Name: [facility]TER : 1955 [id number] Exam Date/Time: 11/01/2024 19:32 Procedure: CT HEAD WO IV CONTRAST Ordering Provider: VU DAKOTA Reason For Exam: Mental status change, unknown cause EXAM: CT Head Without Intravenous Contrast CLINICAL INDICATION: Mental status change, unknown cause TECHNIQUE: Axial computed tomography images of the head/brain without intravenous contrast. This CT exam was performed using one or more of the following dose reduction techniques: automated exposure control, adjustment of the mA and/or kV according to patient size, and/or use of iterative reconstruction technique. COMPARISON: No relevant prior studies available. FINDINGS: BRAIN AND EXTRA-AXIAL SPACES: Moderate diffuse cortical volume loss. Chronic small vessel ischemic changes in the bilateral periventricular white matter. No acute intracranial hemorrhage. No midline shift. BONES/JOINTS: Unremarkable. No acute fracture. SOFT TISSUES: Unremarkable. SINUSES: Unremarkable as visualized. No acute sinusitis. MASTOID AIR CELLS: Unremarkable as visualized. No mastoid effusion. [facility] Anastasia Spencer M D - 11/01/2024 Patient Name: DAMEON POTTER : 1955 Exam Date/Time: 11/01/2024 19:32 Procedure: CT HEAD WO IV CONTRAST Ordering Provider: VU DAKOTA Reason For Exam: Mental status change, unknown cause EXAM: CT Head Without Intravenous Contrast CLINICAL INDICATION: Mental status change, unknown cause TECHNIQUE: Axial computed tomography images of the head/brain without intravenous contrast. This CT exam was performed using one or more of the following dose reduction techniques: automated exposure control, adjustment of the mA and/or kV according to patient size, and/or use of iterative reconstruction technique. COMPARISON: No relevant prior studies available. FINDINGS: BRAIN AND EXTRA-AXIAL SPACES: Moderate diffuse cortical volume loss. Chronic small vessel ischemic changes in the bilateral periventricular white matter. No acute intracranial hemorrhage. No midline shift. BONES/JOINTS: Unremarkable. No acute fracture. SOFT TISSUES: Unremarkable. SINUSES: Unremarkable as visualized. No acute sinusitis. MASTOID AIR CELLS: Unremarkable as visualized. No mastoid effusion. IMPRESSION: No acute intracranial abnormality. Diffuse cortical volume loss and chronic small vessel ischemic changes. Report Dictated on Electronically Signed By: Anastasia Spencer MD Electronically Signed Date/Time: 11/01/2024 7:51 PM EDT [facility] Radiology Study observation (narrative) [facility] alth CT Head WO contrastOrdered B y: Anastasia Spencer on 11-01-2024 [facility] [employer] Work Phone: Comprehensive metabolic 1998 panelOrdered By: Noemi Mcqueen on 11-01-2024 Albumin [Mass/Vol] 2.5 g/dL Low 3.4 - 4.8 g/dL [facility] ALP [Catalytic activity/Vol] 99 U/L 40 - 150 U/L [facility] ALT [Catalytic activity/Vol] 9 U/L NINF - 30 U/L [facility] Anion gap [Moles/Vol] 22 mmol/L High 3 - 13 mmol/L [facility] AST [Catalytic activity/Vol] 20 U/L NINF - 34 U/L [facility] Bilirubin [Mass/Vol] 1.3 mg/dL High NINF - 1.2 mg/dL [facility] Calcium [Mass/Vol] 9.5 mg/dL 8.8 - 10. 0 mg/dL [facility] Chloride [Moles/Vol] 95 mmol/L Low 98 - 10 7 mmol/L [facility] CO2 [Moles/Vol] 11 mmol/L Low 23 - 31 mmol/L [facility] Creatinine [Mass/Vol] 1.62 mg/dL High 0.57 - 1.11 mg/dL [facility] GFR/1.73 sq M.predicted (S/P/Bld) [Vol rate/Area] 34.3 mL/min Low - PINF [facility] Comment on above: Calculation based on the Chronic Kidney Disease Epidemiology Collaboration (CKD-EPI) equation refit without adjustment for race Glucose [Mass/Vol] 617 mg/dL Critically high 82 - 1 15 mg/dL [facility] Interpretation and review of laboratory results Abnormal [facility] Potassium [Moles/Vol] 4.8 mmol/L 3.5 - 5.1 mmol/L [facility] Comment on above: Plasma potassium syed ues may be up to 0.5 mmol/L lower than serum values. Protein [Mass/Vol] 7.3 g/dL 6.4 - 8.3 g/dL [facility] Sodium [Moles/Vol] 128 mmol/L Low 136 - 145 mmol/L [facility] Urea nitrogen [Mass/Vol] 30 mg/dL High 9 - 23 mg/dL [facility] DRUGS OF ABUSEon 11-01-2024 AMPHETAMINE SCREEN Negative Normal [facility] Comment on above: Performed By: #### L [id number] ####Numerical Control Drill Press Operator: NIEVES RUIZ ([id number])[facility] ([facility])[address] BARBITURATES SCREEN Negative Normal [facility] Comment on above: Performed By: #### L [id number] ####Numerical Control Drill Press Operator: NIEVES RUIZ ([id number])[facility] ([facility])[address] [place] [address] BENZODIAZEPINE SCREEN Negative Normal [facility] Comment on above: Performed By: #### L [id number] ####Numerical Control Drill Press Operator: NIEVES RUIZ ([phone])[facility] ([facility])[address] [place] [address] COCAINE METAB. SCREEN Negative Normal [facility] Comment on above: Performed By: #### L [id number] ####Numerical Control Drill Press Operator: NIEVES RUIZ ([phone])[facility] ([facility])[address] [place] [address] FENTANYL SCREEN, UR QUAL Negative Normal [facility] Comment on above: Result Comment: SUNG Bryan COMMENTS:The expected value for all of the drugs listed above is Negative.The following drugs or drug groups have been screened for by Immunoassay at the following thresholds:Amphetamine class (1000 ng/mL)Barbiturates (200 ng/mL)Benzodiazepines (200 ng/mL)Cocaine (300 ng/mL)Methadone (300 ng/mL)Opiates (300 ng/mL)Oxycodone (100 ng/mL)PCP (25 ng/mL)Fentanyl (1.0 ng/ml)NOTE: These results are for medical treatment only. Analysis performed using non-forensic procedures. POSITIVE results are NOT confirmed by a more specificalternative method unless requested. If confirmation is needed, request confirmation under separate order. Performed By: #### L [id number] ####Numerical Control Drill Press Operator: NIEVES RUIZ ([phone])[facility] ([facility])[address] [place] [address] METHADONE SCREEN Negative Normal [facility] Comment on above: Performed By: #### L [id number] ####Numerical Control Drill Press Operator: NIEVES RUIZ ([phone])[facility] ([facility])[address] [place] [address] OPIATES SCREEN Negative Normal [facility] Comment on above: Performed By: #### L [id number] ####Numerical Control Drill Press Operator: NIEVES RUIZ ([id number])[facility] ([facility])[address] [place] [address] OXYCODONE SCREEN Negative Normal [facility] Comment on above: Performed By: #### L [id number] ####Numerical Control Drill Press Operator: NIEVES RUIZ ([phone])[facility] ([facility])[address] [place] [address] PHENCYCLIDINE SCREEN Negative Normal [facility] Comment on above: Performed By: #### L [id number] ####Numerical Control Drill Press Operator: NIEVES RUIZ ([id number])[facility] ([facility])[address] [place] [address] ED Nursing Noteon 11-01-2024 ED Nursing Note Insulin drip and 0.45% sodium chloride infusions stopped per verbal order from . Awaiting BMP results for further orders from . Normal [facility] ED Nursing Note Provider notified that blood sugar dropped over 100, per order. Awaiting orders to continue protocol or not. Normal [facility] ED Nursing Note POCT blood sugar 503 Normal [facility] ED Nursing Note Pt assisted to toile t with wheelchair, stood well on own. Urine sample obtained. RN noted 2 small pressure injuries to buttock with redness surrounded. Pt states she is incontinent and wears briefs at home. Normal [facility] ED Nursing Note Lab called with sarah mims glucose 617, same reported to Dr. Vu and Dr. Dove via secure chat Normal [facility] ED Nursing Note Pt arrived for hyperglycemia, confusion and lightheadedness for past couple of days. Normal [facility] ED Provider Noteon ED Provider Note Normal [facility] HIGH SENSITIVITY TROPONIN, S ERIAL BASELINEon 11-01-2024 TROPONIN HS SERIAL BASELINE 122 ng/L High <=14 [facility] Comment on above: Result Comment: In i ndividuals presenting with symptoms > 2h, a baseline troponin <= 5 ng/L suggests acutecardiac injury is unlikely and further serial testing is generally not indicated. Performed By: #### L [id number], [id number], LAB99, [id number], [id number], [id number], LAB17, [id number] ####Numerical Control Drill Press Operator: NIEVES RUIZ ([phone])[facility])[address] [place] [address] HIGH SENSITIVITY TROPONIN, S ERIAL, SECOND TESTon 11-01-2024 2H TROPONIN HS (SERIAL 2ND TROPONIN) 127 ng/L High <=14 [facility] Comment on above: Result Comment: Risi ng or falling troponin delta between 2 ??? 15 ng/L as compared to baseline value requires a 3rd serial troponin Performed By: #### L [id number] ####Numerical Control Drill Press Operator: NIEVES RUIZ ([id number])[facility])[address] [place] [address] HIGH SENSITIVITY TROPONIN, S ERIAL, THIRD TESTon 11-01-2024 4H TROPONIN HS (SERIAL 3RD TROPONIN) 128 ng/L High <=14 [facility] Comment on above: Result Comment: Risi ng or falling troponin delta below 2 ng/L as compared to 2h troponin value suggeststhat acute cardiac injury is unlikely. Performed By: #### L [id number], [id number], [id number] ####Numerical Control Drill Press Operator: NIEVES RUIZ ([phone])[facility])[address] [place] [address] LACTIC ACID WITH REFLEXon Lactate [Moles/Vol] 1.6 mmol/L Normal 0.5-2.2 [facility] Comment on above: Performed By: #### L [id number] ####Numerical Control Drill Press Operator: NIEVES RUIZ ([phone])[facility])[address] [place] [address] LIPASEon 11-01-2024 Lipase [Catalytic activity/Vol] 9 U/L Normal <55 [facility] Comment on above: Performed By: #### L [id number], [id number], LAB99, [id number], [id number], [id number], LAB17, [id number] ####Numerical Control Drill Press Operator: NIEVES RUIZ ([phone])[facility])[address] [place] [address] Laboratory - Chemistry and C hemistry - challengeon 11-01-2024 Beta hydroxybutyrate [Mass/Vol] 21 mg/dL High NINF - 2.8 mg/dL [facility] Glucose [Mass/Vol] 274 mg/dL High 70 - 100 mg/dL [facility] Glucose [Mass/Vol] 408 mg/dL High 70 - 100 mg/dL [facility] Glucose [Mass/Vol] mg/dL High 70 - 100 mg/dL [facility] Comment on above: Result Not Confirmed ; Magnesium [Mass/Vol] 1.8 mg/dL 1.6 - 2 .6 mg/dL [facility] TSH Qn 4.5 m[IU]/L [facility] Beta hydroxybutyrate [Mass/Vol] 50.7 mg/dL High NINF - 2.8 mg/dL [facility] Lipase [Catalytic activity/Vol] 9 U/L NINF - 55 U/L [facility] Lactate [Moles/Vol] 1.6 mmol/L 0.5 - 2. 2 mmol/L [facility] Base excess Calc (BldV) [Moles/Vol] -6.1000 mmol/L Low -3.0 - 3.0 mmol/L [facility] CO2 (BldV) [Partial pressure] 28.2 mm[Hg] Low [facility] CO2 [Moles/Vol] 18 mmol/L Low 24.0 - 28.0 mmol/L [facility] HCO3 (Bld) [Moles/Vol] 17.2 mmol/L Low 23.0 - 27.0 mmol/L [facility] Oxygen (BldV) [Partial pressure] 42.3 mm[Hg] mm Hg [facility] pH (BldV) 7.402 [pH] 7.330 - 7.430 [facility] Glucose [Mass/Vol] mg/dL High 70 - 100 mg/dL [facility] Comment on above: Confirmation Drawn; Laboratory - Hematology and Cell countson 11-01-2024 Hemoglobin (Bld) [Mass/Vol] 14.2 g/dL Screen only [facility] Lipase [Catalytic activity/V ol]on 11-01-2024 Interpretation and review of laboratory results Normal [facility] th MAGNESIUMon 11-01-2024 Magnesium [Mass/Vol] 1.8 mg/dL Normal 1.6-2.6 [facility] Comment on above: Result Comment: ORDE R COMMENTS:Higher values can be expected in females during menses. Performed By: #### L [id number], [id number], LAB99, NNS095, [id number], [id number], LAB17, [id number] ####Numerical Control Drill Press Operator: NIEVES RUIZ ([id number])[facility] ([facility])[address] [place] [address] Magnesium [Mass/Vol]on 11-01 Interpretation and review of laboratory results Normal [facility] Higher values can be expected in females during menses. [facility] NT PRO BNPon 11-01-2024 Natriuretic peptide B (Bld) [Mass/Vol] 6801 pg/mL High <125 [facility] Comment on above: Performed By: #### L AB113, [id number], LAB99, [id number], [id number], MIY688, LAB17, [id number] ####Numerical Control Drill Press Operator: NIEVES RUIZ ([id number])[facility] ([facility])[address] [place] [address] Natriuretic peptide B [Mass/ Vol]on 11-01-2024 Interpretation and review of laboratory results Abnormal [facility] Natriuretic peptide B (Bld) [Mass/Vol] 6801 pg/mL High NINF - 125 pg/mL [facility] No Panel Informationon 11-01 Interpretation and review of laboratory results Abnormal [facility] Interpretation and review of laboratory results Abnormal [facility] Performed by: [facility], [address] [place] [id number] CLIA ID: [id number] [facility] Interpretation and review of laboratory results Abnormal [facility] Performed by: [facility], [address] [place] [id number] CLIA ID: [id number] [facility] 2h Troponin HS (Serial 2nd Troponin) 127 ng/L High NINF - 14 ng/L [facility] Comment on above: Rising or falling tr oponin delta between 2 15 ng/L as compared to baseline value requires a 3rd serial troponin Interpretation and review of laboratory results Abnormal [facility] Interpretation and review of laboratory results Abnormal [facility] Performed by: [facility], [address] [place] [id number] CLIA ID: [id number] [facility] Interpretation and review of laboratory results Abnormal [facility] Troponin HS Serial Baseline 122 ng/L High NINF - 14 ng/L [facility] Comment on above: In individuals prese nting with symptoms > 2h, a baseline troponin <= 5 ng/L suggests acute cardiac injury is unlikely and further serial testing is generally not indicated. [facility] Interpretation and review of laboratory results Abnormal [facility] Interpretation and review of laboratory results Normal [facility] Amount Of Oxygen [facility] Interpretation and review of laboratory results Abnormal [facility] Source Of Oxygen None (Room Air) [facility] Assessment of oxygenation is best done with an arterial blood gas determination. Reference ranges for pO2, bicarbonate, and base excess are for mixed venous blood. Specimens drawn from a peripheral vein will often have higher values. [facility] Interpretation and review of laboratory results Abnormal [facility] Performed by: [facility], [address] [place] [id number] CLIA ID: [id number] [facility] PHOSPHORUSon 11-01-2024 Phosphate [Mass/Vol] 3.5 mg/dL Normal 2.3-4.7 [facility] Comment on above: Performed By: #### L [id number], [id number], LAB99, [id number], [id number], [id number], LAB17, [id number] ####Numerical Control Drill Press Operator: NIEVES RUIZ ([id number])[facility] ([facility])[address] [place] [address] Phosphate [Moles/Vol]on 10-21 Interpretation and review of laboratory results Normal [facility] Phosphate [Mass/Vol] 3.5 mg/dL 2.3 - 4 .7 mg/dL [facility] THYROID STIMULATING HORMONEo n 11-01-2024 THYROID STIMULATING HORMONE 4.50 uIU/mL Normal 0.35-4.94 [facility] Comment on above: Performed By: #### L AB113, [id number], LAB99, [id number], RCP536, GOG069, LAB17, [id number] ####Numerical Control Drill Press Operator: NIEVES RUIZ ([phone])[facility] ([facility])[address] [place] [address] [place] TSH Qnon 11-01-2024 Interpretation and review of laboratory results Normal [facility] URINE CULTUREon 11-01-2024 Bacteria identified Cx Nom (U) Normal [facility] Comment on above: Performed By: #### L [id number], [id number] ####Numerical Control Drill Press Operator: NIEVES RUIZ ([phone])[facility] ([facility])[address] [place] [address] Urinalysis complete panel (U )on 11-01-2024 Bacteria LM.HPF (Urine sed) [#/Area] Moderate Abnormal Negative /HPF [facility] Bilirubin Ql (U) Negative Negative mg/dL [facility] Clarity (U) Turbid Abnormal Clear [facility] Color (U) Yellow Lt. Yellow [facility] Epithelial cells.squamous LM.HPF (Urine sed) [#/Area] 3-5 [facility] Glucose Ql (U) >1,000 Abnormal Normal (<70) mg/dL [facility] Hemoglobin Ql (U) 0.2 mg/dL Abnormal Negative [facility] Hyaline casts Auto (Urine sed) [#/Area] 3-5 Abnormal Negative /LPF [facility] Interpretation and review of laboratory results Abnormal [facility] Ketones (U) [Mass/Vol] 20 mg/dL Abnormal [facility] Leukocyte clumps LM.HPF (Urine sed) [#/Area] Rare Abnormal Negative /HPF [facility] Leukocyte esterase Test strip Ql (U) 500 Abnormal Negative Rad/uL [facility] Mucus LM.HPF (Urine sed) [#/Area] Few Negative /LPF [facility] Nitrite Ql (U) Negative Negative [facility] pH (U) 5.5 [pH] 5.0 - 8.0 pH [facility] Protein (U) [Mass/Vol] 100 mg/dL Abnormal Negative [facility] RBC LM.HPF (Urine sed) [#/Area] 6-10 Abnormal [facility] Specific gravity (U) [Rel density] 1.023 1.005 - 1.030 [facility] Urobilinogen (U) [Mass/Vol] Normal Normal (0-1) mg/dL [facility] WBC LM.HPF (Urine sed) [#/Area] /[HPF] Abnormal [facility] Yeast.budding LM.HPF (Urine sed) [#/Area] Few Abnormal Negative /HPF [facility] Vital signson 11-01-2024 Oxygen saturation in Venous blood 75.8 % [facility] XR Chest Single viewon 11-01 No radiographic acute cardiopulmonary process. Report Dictated on Electronically Signed By: Claudette Nunez MD Electronically Signed Date/Time: 11/01/2024 6:25 PM EDT [facility] Patient Name: DAMEON POTTER : 1955 Exam Date/Time: 11/01/2024 18:17 Procedure: XR CHEST 1 VIEW Ordering Provider: VARGAS BLAKE Reason For Exam: weakness, tachy, rule out pneumonia INDICATION: Weakness. History of cervical cancer with vaginal brachytherapy (2020). VIEWS: Chest AP-one image COMPARISON: 12/27/2017 FINDINGS: The trachea is midline. The heart is not enlarged. The costophrenic angles are sharp. There is no confluent consolidation. [facility] Claudette Nunez MD - 11/01/2024 Patient Name: DAMEON POTTER : 1955 Exam Date/Time: 11/01/2024 18:17 Procedure: XR CHEST 1 VIEW Ordering Provider: VARGAS BLAKE Reason For Exam: weakness, tachy, rule out pneumonia INDICATION: Weakness. History of cervical cancer with vaginal brachytherapy (2020). VIEWS: Chest AP-one image COMPARISON: 12/27/2017 FINDINGS: The trachea is midline. The heart is not enlarged. The costophrenic angles are sharp. There is no confluent consolidation. IMPRESSION: No radiographic acute cardiopulmonary process. Report Dictated on Electronically Signed By: Claudette Nunez MD Electronically Signed Date/Time: 11/01/2024 6:25 PM EDT [facility] Radiology Study observation (narrative) [facility] X[facility] Chest Single viewOrdered By: Claudette Nunez on 11-01-2024 [facility] [employer] Work Phone: CNCOon 09-23-2024 CNCO Letter Text Normal [facility] CNCOon 09-11-2024 CNCO Letter Text Normal [facility] 36on 08-18-2024 36 Noted, thank you! Normal [facility] 36 Name of Caller: Dameon Contact Reason for Appointment: Pt states she injured her foot and cannoot walk. She will call back to reschedule Office Name: Endocrinology Normal [facility] 36on 05-23-2024 36 Spoke with patient t o make follow up appointment. Patient states she is unsure when she will be able to make it in and will call wound center when she has a better idea of her schedule. Normal [facility] OCT MACULA CIRRUS OU (BOTH E YES)on 05-02-2024 [facility] Radiology [facility]ative[facility] OCT OPTIC NERVE CIRRUS OU (B OTH EYES)on 05-02-2024 [facility] Radiology Study [facility] (narrative) [facility] US Heart TransthoracicOrdere d By: Jose Martin Garcia on 03-14-2024 Ao Root Index 1.53 cm/m2 [facility] h Work Phone: Aortic Root 3.4 cm [facility] [employer] Work Phone: Aortic Sinus Valsalva 3.4 cm [facility] [employer] Work Phone: Aortic Sinus Valsalva Index 1.53 cm/m2 [facility] Work Phone: Ascending Aorta 3.7 [facility] Work Phone: Ascending Aorta Index 1.67 cm/m2 [facility] Work Phone: AV Area by Peak Velocity 1.1 cm2 [facility] Work Phone: AV Area by VTI 1.0 cm2 [facility] Work Phone: AV Area by VTI 1 cm2 [facility] Work Phone: AV AT 133.21 ms [facility] Work Phone: AV Mean Gradient 25 mmHg [facility] Work Phone: AV Mean Velocity 2.4 m/s [facility] Work Phone: AV Peak Gradient 56 mmHg [facility] Work Phone: AV Peak Velocity 3.7 m/s [facility] Work Phone: AV Velocity Ratio 0.38 [facility] Work Phone: AV VTI 93.1 cm [facility] Work Phone: PEÑA/BSA Peak Velocity 0.5 cm2/m2 [facility] Work Phone: PEÑA/BSA VTI 0.5 cm2/m2 [facility] Work Phone: E/E' Lateral 21.50 [facility] Work Phone: E/E' Lateral 21.5 [facility] Work Phone: E/E' Ratio (Averaged) 19.35 [facility] Work Phone: E/E' Septal 17.20 [facility] Work Phone: E/E' Septal 17.2 [facility] Work Phone: EF BP 68 % 55 - 100 % [facility] Work Phone: Est. RA Pressure 3 mmHg [facility] Work Phone: Global Longitudinal Strain -17.1 % [facility] Work Phone: Interpretation and review of laboratory results Abnormal [facility] Work Phone: IVC Diameter 1.8 cm [facility] Work Phone: LA Diameter 4.3 cm [facility] Work Phone: [phone] LA Size Index 1.94 cm/m2 [facility] Work Phone: [phone] LA Volume 2C 76 mL Abnormal 22 - 52 mL [facility] Work Phone: [phone] LA Volume 4C 64 mL Abnormal 22 - 52 mL [facility] Work Phone: LA Volume A/L 73 mL [facility] Work Phone: LA Volume BP 70 mL Abnormal 22 - 52 mL [facility] Work Phone: LA Volume Index 2C 34 mL/m2 16 - 34 mL/m2 [facility] Work Phone: LA Volume Index 4C 29 mL/m2 16 - 34 mL/m2 [facility] Work Phone: LA Volume Index A/L 33 mL/m2 16 - 34 mL/m2 [facility] Work Phone: LA Volume Index BP 32 ml/m2 16 - 34 ml/m2 [facility] Work Phone: LA/AO Root Ratio 1.26 [facility] Work Phone: LV E' Lateral Velocity 4 cm/s [facility] Work Phone: LV E' Septal Velocity 5 cm/s [facility] Work Phone: LV EDV A2C 79 mL [facility] Work Phone: LV EDV A4C 96 mL [facility] Work Phone: LV EDV BP 88 mL 56 - 104 mL [facility] Work Phone: LV EDV Index A2C 36 mL/m2 [facility] Work Phone: LV EDV Index A4C 43 mL/m2 [facility] Work Phone: LV EDV Index BP 40 mL/m2 [facility] Work Phone: LV Ejection Fraction A2C 65 % [facility] Work Phone: LV Ejection Fraction A4C 71 % [facility] Work Phone: LV ESV A2C 28 mL [facility] Work Phone: LV ESV A4C 28 mL [facility] Work Phone: LV ESV BP 29 mL 19 - 49 mL [facility] Work Phone: LV ESV Index A2C 13 mL/m2 [facility] Work Phone: LV ESV Index A4C 13 mL/m2 [facility] Work Phone: [phone] LV ESV Index BP 13 mL/m2 [facility] lt Work Phone: LVOT Area 3.1 cm2 [facility] Work Phone: LVOT Cardiac Output 5.6 liter/mi nut e [facility] Work Phone: LVOT Diameter 2.0 cm [facility] Work Phone: LVOT Diameter 2 cm [facility] Work Phone: LVOT Mean Gradient 4 mmHg [facility] Work Phone: LVOT Peak Gradient 7 mmHg [facility] [employer] Work Phone: [phone] LVOT Peak Velocity 1.4 m/s [facility] [employer] Work Phone: LVOT Stroke Volume Index 43.6 mL/m2 [facility] [employer] Work Phone: LVOT SV 96.7 ml [facility] [employer] Work Phone: LVOT VTI 30.8 cm [facility] [employer] Work Phone: LVOT:AV VTI Index 0.33 [facility] Work Phone: MV A Velocity 1.07 m/s [facility]: MV E Velocity 0.86 m/s [facility] Work Phone: MV E Wave Deceleration Time 434.6 ms [facility] Work Phone: MV E/A 0.80 [facility] Work Phone: MV E/A 0.8 [facility] Work Phone: RA Area 4C 47.4 mL [facility] Work Phone: RA Area 4C 46.4 mL [facility] Work Phone: RV Basal Dimension 3.3 cm [facility] Work Phone: RV Free Wall Peak S' 14 cm/s [facility] a Health Work Phone: RV Longitudinal Dimension 5.4 cm [facility] Health Work Phone: [phone] RV Mid Dimension 1.7 cm [facility] alth Work Phone: Sinotubular Junction 2.9 cm [facility] a Health Work Phone: [phone] TAPSE 2.2 cm 1.7 cm [facility] Health Work Phone: [phone] [facility] Work Phone: [phone] Heart Transthoracicon Left Ventricle: Left ventricle is smaller than normal. Moderately increased wall thickness. Normal left ventricular systolic function. EF by 2D Simpsons Biplane is 68%. Global longitudinal strain is -17.1%. Normal wall motion. Right Ventricle: Right ventricle size is normal. Normal systolic function. Aortic Valve: Not well visualized. Trileaflet. Moderately thickened cusps. Moderately calcified cusps. Moderate stenosis of the aortic valve. AV mean gradient is 25 mmHg. AV peak gradient is 56 mmHg. LVOT:AV VTI Index is 0.33. AV area by continuity VTI is 1.0 cm2. Aorta: Normal sized sinuses of Valsalva. Mildly dilated ascending aorta. Ao ascending diameter is 3.7 cm. Left Ventricle Left ventricle is smaller than normal. Moderately increased wall thickness. Normal left ventricular systolic function. EF by 2D Simpsons Biplane is 68%. Global longitudinal strain is -17.1%. Normal wall motion. Right Ventricle Right ventricle size is normal. Normal systolic function. Left Atrium Left atrium is mildly dilated. Right Atrium Right atrium size is normal. IVC/SVC IVC size is normal. IVC diameter is normal and decreases greater than 50% during inspiration; therefore the estimated right atrial pressure is normal (~3 mmHg). Mitral Valve Valve structure is normal. Calcified leaflets. Annular calcification. Mild (1+) regurgitation. No stenosis noted. Tricuspid Valve Valve structure is normal. Trace regurgitation. Aortic Valve Not well visualized. Trileaflet. Moderately thickened cusps. Moderately calcified cusps. Trace regurgitation. Moderate stenosis of the aortic valve. AV mean gradient is 25 mmHg. AV peak gradient is 56 mmHg. LVOT:AV VTI Index is 0.33. AV area by continuity VTI is 1.0 cm2. Pulmonic Valve The pulmonic valve was not well visualized. Valve structure is normal. Trace regurgitation. Ascending Aorta Normal sized sinuses of Valsalva. Mildly dilated ascending aorta. Ao ascending diameter is 3.7 cm. Pericardium The pericardium is normal. No pericardial effusion. Septum No interatrial shunt visualized on color Doppler. Study Details Image quality: fair. Additional technique includes myocardial strain. Blood pressure: 171/96 mmHg. Technical qualifiers: Technically difficult study due to patient's body habitus. No contrast was given. CV [facility] CT Abdomen and Pelvis W cont rast Brittany 12-04-2023 1. No evidence of abdominal or pelvic mass lesion or adenopathy or other significant abnormality with chronic changes as detailed above. Report Dictated on Electronically Signed By: Tha Hamm MD Electronically Signed Date/Time: 12/04/2023 12:33 PM [facility] Patient Name: DAMEON POTTER : 1955 Exam Date/Time: 12/04/2023 10:43 Procedure: CT ABDOMEN PELVIS W CONTRAST Ordering Provider: MEADOWS JAIMEE Reason For Exam: history of endometrial cancer, right lower quadrant lump. CT scan of the abdomen and pelvis with contrast. Reasons for examination: History of endometrial cancer, right lower quadrant lump. CT scans of the abdomen and pelvis were performed following oral and intravenous contrast administration, with images from the lung bases through the pubic symphysis. Dose reduction was employed with automated exposure control. Comparison study 2020. The lung bases are clear. There are no pericardial or pleural effusions. Subcutaneous edema is present in both flanks. The liver is normal in size, shape, and fatty in attenuation. There are no focal liver masses. There has been a prior cholecystectomy. The intrahepatic and extrahepatic biliary tree are normal for the post-cholecystectomy state. The pancreas and spleen are normal. The stomach, duodenum are unremarkable with prior gastric bypass procedure. There is no evidence of bowel obstruction, and the small bowel, large bowel, and mesentery are unremarkable. Protuberant abdomen with anterior abdominal wall fat-containing ventral hernias. There is no free air. The kidneys and adrenal glands are normal. There are no mass lesions nor evidence of obstruction. No calculi are seen. Scans through the pelvis demonstrate the sigmoid colon and rectum to be unremarkable. The bladder is unremarkable. There are no masses nor adenopathy. There is no free fluid. The remainder of the pelvic contents are unremarkable with prior hysterectomy. Degenerative disc and facet changes are seen in the lower lumbar spine. [facility] Tha Hamm MD - 12/04/2023 Patient Name: DAMEON POTTER : 1955 [id number] Exam Date/Time: 12/04/2023 10:43 Procedure: CT ABDOMEN PELVIS W CONTRAST Ordering Provider: MEADOWS JAIMEE Reason For Exam: history of endometrial cancer, right lower quadrant lump. CT scan of the abdomen and pelvis with contrast. Reasons for examination: History of endometrial cancer, right lower quadrant lump. CT scans of the abdomen and pelvis were performed following oral and intravenous contrast administration, with images from the lung bases through the pubic symphysis. Dose reduction was employed with automated exposure control. Comparison study 2020. The lung bases are clear. There are no pericardial or pleural effusions. Subcutaneous edema is present in both flanks. The liver is normal in size, shape, and fatty in attenuation. There are no focal liver masses. There has been a prior cholecystectomy. The intrahepatic and extrahepatic biliary tree are normal for the post-cholecystectomy state. The pancreas and spleen are normal. The stomach, duodenum are unremarkable with prior gastric bypass procedure. There is no evidence of bowel obstruction, and the small bowel, large bowel, and mesentery are unremarkable. Protuberant abdomen with anterior abdominal wall fat-containing ventral hernias. There is no free air. The kidneys and adrenal glands are normal. There are no mass lesions nor evidence of obstruction. No calculi are seen. Scans through the pelvis demonstrate the sigmoid colon and rectum to be unremarkable. The bladder is unremarkable. There are no masses nor adenopathy. There is no free fluid. The remainder of the pelvic contents are unremarkable with prior hysterectomy. Degenerative disc and facet changes are seen in the lower lumbar spine. IMPRESSION: 1. No evidence of abdominal or pelvic mass lesion or adenopathy or other significant abnormality with chronic changes as detailed above. Report Dictated on Electronically Signed By: Tha Hamm MD Electronically Signed Date/Time: 12/04/2023 12:33 PM EDT [facility] Radiology Study observation (narrative) Nikole Polanco alth CT Abdomen and Pelvis W cont rast IVOrdered By: Tha Hamm on 12-04-2023 [facility] Work Phone: FUNDUS PHOTOS OU (BOTH EYES) on 11-13-2023 [facility] Radiology Study observation (narrative) [facility] OCT MACULA CIRRUS OU (BOTH E YES)on 11-13-2023 [facility] Radiology Study observation (narrative) [facility] AMB POC HEMOGLOBIN A1Con HbA1c (Bld) [Mass fraction] 10.8 % Abnormal - 5.7 % [facility] HbA1c (Bld) [Mass fraction]o n 11-02-2023 Interpretation and review of laboratory results Abnormal [facility] Radiology Study observation (narrative) Nikole Polanco alth AMB POC HEMOGLOBIN A1Con HbA1c (Bld) [Mass fraction] 10.2 % Abnormal - 5.7 % [facility] HbA1c (Bld) [Mass fraction]o n 05-09-2023 Interpretation and review of laboratory results Abnormal [facility] AMB POC HEMOGLOBIN A1Con HbA1c (Bld) [Mass fraction] 10.2 % Abnormal - 5.6 % [facility] HbA1c (Bld) [Mass fraction]o n 01-19-2023 Interpretation and review of laboratory results Abnormal [facility] Radiation Onc F/U Noteon Radiation Onc F/U Note [facility] Radiation Oncology RADIATION ONCOLOGY FOLLOW UP PATIENT: Dameon Potter DATE OF SERVICE: 03/01/2022 [facility] : 1955 AGE: 67 PRIMARY SITE: Uterus, 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 MMR proteins intact. STAGE: pT2 NX M0, II HISTORY OF PRESENT ILLNESS: Ms. Potter is a 67-year-old female who presented to her screening representative with postmenopausal bleeding. A D T C was performed on 09/03/2020 which identified grade 2 endometrial cancer, p53 wild-type. She was seen by Dr. Stubbs and on 09/30/2020 underwent a robotic hysterectomy with BSO. Per operative note, due to body habitus, sentinel node removal could not be performed. Pathology was noted to show involvement of the ectocervical/vaginal cuff margin. Patient was referred for radiation therapy. INTERVAL SINCE RADIATION: 1 year 11/29/20 - 01/03/21: 45.00/45.00 Gy to the Pelvis in 25 fractions of 1.80 Gy using the VMAT/Daily IGRT technique with 10 MV over 35 days. 01/14/21 - 01/28/21: 30.00/30.00 Gy to the Vaginal Brachy in 5 fractions of 6.00 Gy using the Brachytherapy technique with HDR: Ir192 over 14 days. INTERVAL HISTORY: Patient presents for follow-up today. She notes that she continues to have periodic yeast infections. She continues to have the intermittent diarrhea with incontinence and uses Imodium as needed. Bladder issues. Both of these are as prior to the diagnosis. Appetite and energy level are fair. She continues to follow with the nurse practitioner at the [facility] office. She was last seen in October and is scheduled to be seen again in April. She continues to follow with her other physicians. She notes she recently had cataract surgery bilaterally. No respiratory or cardiac complaints. PAST MEDICAL HISTORY: Anxiety, depression. Asthma. Dry eye syndrome. Gastritis. GE reflux disease. Glaucoma. Hyperlipidemia. Hypertension. Hypothyroidism. Urinary incontinence with overactive bladder. Intestinal malabsorption. Chronic lower extremity lymphedema with venous hypertension. This started following a skin infection of the lower extremities around 2013. Morbid obesity. Obstructive sleep apnea for which a CPAP is utilized. Polycystic ovarian syndrome. Psoriasis. Diabetes. Vitamin D deficiency. Zinc deficiency. Ms. Potter follows at the [facility] for the lower extremity issue. Primary open angle glaucoma. Cataracts. PAST SURGICAL HISTORY: Robotic hysterectomy with BSO 09/30/2020. D T C 09/03/2020. Gastric bypass surgery with laparoscopic gallbladder removal and umbilical hernia repair 01/29/2018. Gum surgery for wisdom teeth in . Thyroglossal duct excision 2000. Partial thyroidectomy for a cyst. Upper endoscopy 03/20/2017. [place] teeth extraction 2012. Bilateral cataract surgery ALLERGIES: erythromycin (bulk); levofloxacin; nitrofurantoin ([id number]%); macrolides T ketolides; molds T smuts; Quinolones; doxycycline hyclate; Penicillin MEDICATIONS: 1. Alphagan P - 1 Drops Ophthalmic Three times a day 2. atorvastatin - 1 Tablet Oral Daily 3. Benicar - 1 Tablet Oral Daily 4. Calcium With Vitamin D3 - 1 Capsule Oral Three times a day 5. Celexa - 1 Tablet Oral Daily 6. Coreg - 1 Tablet Oral Twice a Day 7. EpiPen - As needed 8. fluconazole - 1 Tablet Oral Daily 9. HumuLIN R Regular U-100 Insuln - Injection Twice a Day 10. hydrochlorothiazide - 1 Tablet Oral Daily 11. hydrocortisone - Topical Twice a Day 12. ibuprofen - 1 Tablet Oral Q6H 13. metformin - 1 Tablet Oral Twice a Day 14. Multiple Vitamin - 1 Tablet Oral Daily 15. Myrbetriq - 1 Tablet Oral Daily 16. Proventil (Refill) - 2 Puff(s) Inhalation As needed 17. Synthroid - 1 Tablet Oral Daily 18. Systane Gel - Ophthalmic As needed 19. Timoptic - 1 Drops Ophthalmic Twice a Day 20. Tylenol Extra Strength - 2 Tablet Oral Q6H 21. Vitamin B 12 - weekly 22. zinc - 1 Capsule Oral Daily Medications Last Reconciled by Shirley Zarco RN on 03/01/2022 SUMMARY OF SIGNIFICIANT X-RAY/LABORATORY FINDINGS: CT for radiation planning on 01/10/2021 identified diverticular disease in the sigmoid without diverticulitis. Post-surgery changes noted. REVIEW OF SYSTEMS: Pain: 0. - No pain As above. KPS: 70 - Cares for self; unable to carry on normal activity or to do active work PHYSICAL EXAMINATION: VITALS: Temperature 97.5 F (03/01/22), Pulse 76 (03/01/22), Respirations 20 (03/01/22), Blood Pressure 181/85 (03/01/22) Weight 281 pounds 03/01/22 Nurses present for full visit. GENERAL: Awake, alert, oriented x3, no anxiety, dressed appropriately, appears of stated age. Ambulates with wheeled walker. Speech pattern fluent. LUNGS: Clear to auscultation. No rales or rhonchi. HEART: Regular rate and rhythm, S1-S2 noted no murmur. NECK: Symmetric. NODES: No neck, supraclavicular, infraclavicular adenopathy. ABDOMEN: Soft, nonte (more content not included)... [facility] ANES POSTPROC EVALon 022 ANES POSTPROC EVAL HNO ID: [id number] Author: Aman Dai MD Service: Anesthesiology Author Type: Anesthesiologist Type: Anesthesia Postprocedure Evaluation Filed: 12/06/2021 8:12 AM Note Text: POST ANESTHESIA EVALUATION NOTE : 1955 Procedure Summary Date: 12/06/21 Room / Location: [place] [address] / [facility] Anesthesia Start: 737 Anesthesia Stop: 808 Procedures: PHACOEMULSIFICATION CATARACT IMPLANT INTRAOCULAR LENS W/O ENDOSCOPIC CYCLOPHOTOCOAGULATION (Right Eye) OPHTHALMIC BIOMETRY BY PARTIAL COHERENCE INTERFEROMETRY W/INTRAOCULAR LENS POWER CALCULATION (Right Eye) Diagnosis: Combined forms of age-related cataract of right eye (Combined forms of age-related cataract of right eye [H25.811]) Surgeons: Moses Acevedo MD Responsible Provider: Aman Dai MD Anesthesia Type: MAC ASA Status: 3 Anesthesia Type: MAC Last Vitals Vitals Value Taken Time BP 157/77 12/06/21 0811 Temp 36.7 12/06/21 0811 Pulse 64 12/06/21 0811 Resp 18 12/06/21 0811 SpO2 98 12/06/21 0811 Post Anesthesia Patient Status Patient Evaluation: bedside. Anticipated Disposition: phase 2 then home. Neurological Status: aware and responsive. Pulmonary Status: breathing comfortably on room air Airway Control: returned to baseline unsupported. Cardiovascular Status: stable. Pain Management: clinically adequate Postoperative Hydration: acceptable. Intraoperative Events: no significant anesthesia events Post Operative Nausea/Vomiting Status: no significant post operative nausea or vomiting Anesthetic Observations: Recommendation: continue current plan of care. Anesthesia Observations No Documentation SIGNATURE: Aman Dai MD PATIENT NAME: Dameon Potter DATE: December 06, 2021 TIME: 8:11 AM CSN: [id number] [facility] ANES PRE-OPon 12-06-2021 ANES PRE-OP HNO ID: [id number] Author: Aman Dai MD Service: Anesthesiology Author Type: Anesthesiologist Type: Anesthesia Preprocedure Evaluation Filed: 12/06/2021 7:34 AM Note Text: ANESTHESIOLOGY DAY OF SURGERY NOTE : 1955 Procedure Information Date/Time: 12/06/21799 Procedures: PHACOEMULSIFICATION CATARACT IMPLANT INTRAOCULAR LENS W/O ENDOSCOPIC CYCLOPHOTOCOAGULATION (Right Eye) OPHTHALMIC BIOMETRY BY PARTIAL COHERENCE INTERFEROMETRY W/INTRAOCULAR LENS POWER CALCULATION (Right Eye) Location: [facility] / [facility] Surgeons: Moses Acevedo MD Estimated body mass index is 45.87 kg/m? as calculated from the following: Height as of this encounter: 167.6 cm (5' 6). Weight as of this encounter: 128.9 kg (284 lb 3.2 oz). Most recent hematocrit and potassium results: Hematocrit 40.2 09/01/2020 Potassium 4.4 09/01/2020 Relevant Problems ENDO (+) Type 2 diabetes mellitus with mild nonproliferative diabetic retinopathy without macular edema (HCC) GI (+) Esophageal reflux I - PHYSICAL EVALUATION AIRWAY Patient intubated: No. Tracheostomy tube not present Mallampati: I. TM distance: >3 FB. Neck ROM: full ROM without neurological symptoms. Mouth opening: adequate. Short neck: no. Thick neck: no DENTAL Dental findings: teeth intact, poor dentition and missing tooth/teeth. Additional exam findings: no II - ANESTHESIA PLAN ASA Score: 3 Anesthetic Plan: MAC The patient is not a current smoker. NPO Status: adequate Monitoring plan: standard ASA. Postoperative analgesic plan: parenteral or oral opioids and multimodal analgesia. Patient / Surrogate agrees to blood products: blood products not planned DNR status not reviewed with patient and/or family prior to surgery. Significant changes in the patient condition since the History and Physical, not otherwise documented in primary service progress note: no. Potential Anesthesia issues that may suggest increased risk of complications or contraindication to planned procedure: none. Vitals Value Taken Time BP 169/81 12/06/21 0712 Pulse 75 12/06/21 0707 Resp 24 12/06/21 0707 Temp 36.4 ?C (97.6 ?F) 12/06/21 0707 SpO2 98 % 12/06/21 07 Facility-Administered Medications as of 12/06/2021 Medication Dose Route Frequency - sodium chloride 0.9 % (flush) 2-10 mL (BD POSIFLUSH) 2-10 mL INTRAVENOUS q 12 H - [COMPLETED] cyclopentolate 1%-tropicamide 1%-PHENYLephrine 2.5% ophthalmic drops 1 Drop RIGHT EYE q 3 min - [COMPLETED] cyclopentolate 1%-tropicamide 1%-PHENYLephrine 2.5% ophthalmic drops 1 Drop LEFT EYE q 3 min - [COMPLETED] PHENYLephrine syringe 1.5% (15 mg/mL) (ROSLYN-SYNEPHRINE) 2 mL LEFT EYE ONCE Outpatient Medications as of 12/06/2021 Medication Sig - valsartan (DIOVAN) 320 mg tablet Take 320 mg by mouth once daily. - cholecalciferol (VITAMIN D-3) 50 mcg (2,000 unit) tablet Take 2,000 Units by mouth once daily. Take 4 tablets daily - cyanocobalamin (VITAMIN B-12) 1,000 mcg tab Take 1,000 mcg by mouth one time a week. - metFORMIN (GLUCOPHAGE) 500 mg tablet Take 500 mg by mouth twice daily. - timolol maleate (TIMOPTIC) 0.5 % ophthalmic solution Use 1 Drop in both eyes twice daily. - brimonidine (ALPHAGAN P) 0.1 % drop Use 1 Drop in both eyes three times daily. - MULTIVITAMIN ORAL Take 2 tablets by mouth once daily. Flintstones-not gummies - insulin regular human (CONCENTRATED 500 UNIT/ML) Inject 7 Units subcutaneously once daily. - carvedilol (COREG) 6.25 mg tablet Take by mouth q 12 HR. - Pedi Multivit No.7-Folic Acid (FLINTSTONES MULTI-VIT GUMMIES) 100 mcg chew Take 1 tablet by mouth. - atorvastatin (LIPITOR) 40 mg tablet Take 40 mg by mouth once daily. - hydroCHLOROthiazide (HYDRODIURIL, ESIDRIX) 25 mg tablet Take 25 mg by mouth once daily. - levothyroxine (SYNTHROID) 175 mcg tablet Take 175 mcg by mouth once daily. - MIRABEGRON ORAL Take 50 mg by mouth once daily. - CITALOPRAM HYDROBROMIDE (CITALOPRAM ORAL) Take 20 mg by mouth once daily. - fluconazole (DIFLUCAN) 200 mg tablet Take 150 mg by mouth once daily. As needed - hydrocortisone valerate (WESTCORT) 0.2 % cream Apply to affected area twice daily. - olmesartan (BENICAR) 40 mg tablet once daily. - CPAP daily at bedtime. - EPINEPHrine (EPIPEN) 0.3 mg/0.3 mL auto-injector Inject 0.3 mg intramuscularly as needed. - ALBUTEROL 90MCG INHALER inhale 2 puffs q6h prn I have interviewed and examined the patient. I have reviewed the medical record and/or the pre-anesthesia evaluation, pertinent labs, and test results. This contains updated information obtained within 48 hours of Surgery/Procedure. SIGNATURE: Aman Dai MD PATIENT NAME: Dameon Potter DATE: December 06, 2021 TIME: 7:33 AM CSN: [id number] [facility] HISTORY PHYSICALon HISTORY PHYSICAL HNO ID: [id number] Author: Moses Acevedo MD Service: Abstract Author Type: Physician Type: HANDP Filed: 12/06/2021 7:48 AM Note Text: UPDATED HISTORY AND PHYSICAL EXAMINATION SERVICE DATE: 12/06/2021 SERVICE TIME: 7:46 AM PHYSICAL EXAM MUST BE COMPLETED ON ADMISSION The History and Physical (completed in the past 30 days) has been reviewed and the patient has been examined. The contents accurately reflect the patient's condition with the following additions or revisions since the HANDP was completed. Examination indicates no changes. This HANDP can be found in the paper record dated 11/08/2021. SIGNATURE: Moses Acevedo MD PATIENT NAME: Dameon Potter DATE: December 06, 2021 TIME: 7:46 AM [facility] OPERATIVE NOon 12-06-2021 OPERATIVE NO HNO ID: [id number] Author: Moses Acevedo MD Service: Abstract Author Type: Physician Type: Operative Report Filed: 12/06/2021 8:09 AM Note Text: OPERATIVE/PROCEDURE REPORT Patient Name: Dameon Potter LOG ID: [id number] Surgery/Procedure Date: 12/06/2021 Incision/Procedure Start Time: 7:53 AM Incision Close/Procedure End Time: 8:07 AM Surgeon(s)/Procedural ist(s) and Carpenter Mold(s): Surgeon(s) and Role: * Moses Acevedo MD - Primary Procedure(s): Phacoemulsification with posterior chamber intraocular implant right eye. Preoperative Diagnosis: Senile Combined Cataract right eye Postoperative Diagnosis: Senile Combined Cataract right eye Operative Indications: Patient has a history of decreased visual acuity due to cataract. The patient complained of gradual decreased vision in the right eye. Slit lamp exam revealed a mature cataract of the right eye. Ophthalmoscopy showed no macular disease. The risks and benefits were discussed with the patient and the patient was found to be in stable condition by their PCP to undergo cataract surgery. Treatment and exams are expected in the post-operative period. Anesthesia: Monitored Anesthesia Care Procedure Details: The correct eye was identified and marked by me in the preop area. The patient was taken back to the operating room and prepped and draped in the usual sterile fashion for a right eye procedure. Topical tetracaine was applied to the right eye and a lid speculum was placed in the operative eye. The operating microscope was brought into proper position. A paracentesis was placed with a 15 degree blade at the 11 o'clock position and preservative free lidocaine on a 3cc syringe was instilled on a cannula into the anterior chamber. The anterior chamber was then filled with viscoelastic. A clear corneal incision was then placed from the 9 o'clock position. A continuous capsulorrhexis was then created using a cystotome and utrata forceps. [place]-dissection and hydro-delineation were then performed. Phacoemulsification was then undertaken successfully with removal of the entire lens. Any remaining cortex was then aspirated from the eye. The capsular bag was filled with viscoelastic and the lens implant was successfully introduced to the posterior chamber capsule. Any remaining viscoelastic was removed utilizing irrigation and aspiration. BSS on a cannula was used to hydrate the wounds, which was found to be self-sealing. The lid speculum was removed and the anterior chamber remained formed. Vigamox and Prednisolone Acetate drops were instilled into the operative eye and a clear eye shield was placed over the eye for protection.The patient was taken back to the post-operative area in good condition. The post-operative instructions were reviewed with the patient and an instruction sheet was sent home. The patient is to follow up the next day as directed. The patient should call before then if they have any increase in pain or any other concerns. No qualified resident/fellow was available. Estimated Blood Loss: minimal Specimens: * No specimens in log * Implantable Devices: Implant Name Type Inv. Item Serial No. Sewer Pipe Sorter Lot No. LRB Model Num No. Used LENS ACRYSOF ULTRASERT +16.5 DIOPTER ACRYLIC IOL 1 PIECE FOLDABLE UV BLUE - [id number] Intraocular Lens LENS ACRYSOF ULTRASERT +16.5 DIOPTER ACRYLIC IOL 1 PIECE FOLDABLE UV BLUE [id number] [facility] Right [id number] 1 Drains: None Complications: None Moses Acevedo MD December 06, 2021 8:09 AM [facility] ANES POSTPROC EVALon 022 ANES POSTPROC EVAL HNO ID: [id number] Author: Aman Dai MD Service: Anesthesiology Author Type: Anesthesiologist Type: Anesthesia Postprocedure Evaluation Filed: 11/22/2021 8:17 AM Note Text: POST ANESTHESIA EVALUATION NOTE : 1955 Procedure Summary Date: 11/22/21 Room / Location: [place] [address] / [facility] [place] Anesthesia Start: 734 Anesthesia Stop: 808 Procedures: PHACOEMULSIFICATION CATARACT IMPLANT INTRAOCULAR LENS W/O ENDOSCOPIC CYCLOPHOTOCOAGULATION (Left Eye) OPHTHALMIC BIOMETRY BY PARTIAL COHERENCE INTERFEROMETRY W/INTRAOCULAR LENS POWER CALCULATION (Left Eye) Diagnosis: Combined forms of age-related cataract of left eye (Combined forms of age-related cataract of left eye [H25.812]) Surgeons: Moses Acevedo MD Responsible Provider: Aman Dai MD Anesthesia Type: MAC ASA Status: 3 Anesthesia Type: MAC Last Vitals Vitals Value Taken Time BP 165/71 11/22/21 0811 Temp 36.9 ?C (98.4 ?F) 11/22/21 0811 Pulse 61 11/22/21 0811 Resp 18 11/22/21 0816 SpO2 95 % 11/22/21 0811 Post Anesthesia Patient Status Patient Evaluation: bedside. Anticipated Disposition: phase 2 then home. Neurological Status: aware and responsive. Pulmonary Status: breathing comfortably on room air Airway Control: returned to baseline unsupported. Cardiovascular Status: stable. Pain Management: clinically adequate Postoperative Hydration: acceptable. Intraoperative Events: no significant anesthesia events Post Operative Nausea/Vomiting Status: no significant post operative nausea or vomiting Anesthetic Observations: Recommendation: continue current plan of care. Anesthesia Observations No Documentation SIGNATURE: Aman Dai MD PATIENT NAME: Dameon Potter DATE: November 22, 2021 TIME: 8:16 AM CSN: [id number] [facility] ANES PRE-OPon 11-22-2021 ANES PRE-OP HNO ID: [id number] Author: Aman Dai MD Service: Anesthesiology Author Type: Anesthesiologist Type: Anesthesia Preprocedure Evaluation Filed: 11/22/2021 7:16 AM Note Text: ANESTHESIOLOGY DAY OF SURGERY NOTE : 1955 Procedure Information Date/Time: 11/22/21729 Procedures: PHACOEMULSIFICATION CATARACT IMPLANT INTRAOCULAR LENS W/O ENDOSCOPIC CYCLOPHOTOCOAGULATION (Left Eye) OPHTHALMIC BIOMETRY BY PARTIAL COHERENCE INTERFEROMETRY W/INTRAOCULAR LENS POWER CALCULATION (Left Eye) Location: [facility] OR / [facility] Surgeons: Moses Acevedo MD Estimated body mass index is 45.84 kg/m? as calculated from the following: Height as of this encounter: 167.6 cm (5' 6). Weight as of this encounter: 128.8 kg (284 lb). Most recent hematocrit and potassium results: Hematocrit 40.2 09/01/2020 Potassium 4.4 09/01/2020 Relevant Problems ENDO (+) Type 2 diabetes mellitus with mild nonproliferative diabetic retinopathy without macular edema (HCC) GI (+) Esophageal reflux I - PHYSICAL EVALUATION AIRWAY Patient intubated: No. Tracheostomy tube not present Mallampati: I. TM distance: >3 FB. Neck ROM: full ROM without neurological symptoms. Mouth opening: adequate. Short neck: no. Thick neck: no DENTAL Dental findings: missing tooth/teeth, chipped, poor dentition and broken tooth. Additional exam findings: no II - ANESTHESIA PLAN ASA Score: 3 Anesthetic Plan: MAC The patient is not a current smoker. NPO Status: adequate Monitoring plan: standard ASA. Anesthetic plan additional comments: : no echo, pt denies CP, SOB, SERRA, dizziness, syncope. Postoperative analgesic plan: parenteral or oral opioids and multimodal analgesia. Patient / Surrogate agrees to blood products: blood products not planned DNR status not reviewed with patient and/or family prior to surgery. Significant changes in the patient condition since the History and Physical, not otherwise documented in primary service progress note: no. Potential Anesthesia issues that may suggest increased risk of complications or contraindication to planned procedure: none. Vitals Value Taken Time BP 178/64 11/22/21 0706 Pulse 68 11/22/21 0706 Resp 18 11/22/21 0706 Temp 36.3 ?C (97.3 ?F) 11/22/21 0706 SpO2 98 % 11/22/21 0711 Facility-Administered Medications as of 11/22/2021 Medication Dose Route Frequency - sodium chloride 0.9 % (flush) 2-10 mL (BD POSIFLUSH) 2-10 mL INTRAVENOUS q 12 H - [COMPLETED] cyclopentolate 1%-tropicamide 1%-PHENYLephrine 2.5% ophthalmic drops 1 Drop LEFT EYE q 3 min - PHENYLephrine syringe 1.5% (15 mg/mL) (ROSLYN-SYNEPHRINE) 2 mL LEFT EYE ONCE Outpatient Medications as of 11/22/2021 Medication Sig - cholecalciferol (VITAMIN D-3) 50 mcg (2,000 unit) tablet Take 2,000 Units by mouth once daily. Take 4 tablets daily - cyanocobalamin (VITAMIN B-12) 1,000 mcg tab Take 1,000 mcg by mouth one time a week. - metFORMIN (GLUCOPHAGE) 500 mg tablet Take 500 mg by mouth twice daily. - timolol maleate (TIMOPTIC) 0.5 % ophthalmic solution Use 1 Drop in both eyes twice daily. - brimonidine (ALPHAGAN P) 0.1 % drop Use 1 Drop in both eyes three times daily. - MULTIVITAMIN ORAL Take 2 tablets by mouth once daily. Flintstones-not gummies - olmesartan (BENICAR) 40 mg tablet once daily. - carvedilol (COREG) 6.25 mg tablet Take by mouth q 12 HR. - Pedi Multivit No.7-Folic Acid (FLINTSTONES MULTI-VIT GUMMIES) 100 mcg chew Take 1 tablet by mouth. - atorvastatin (LIPITOR) 40 mg tablet Take 40 mg by mouth once daily. - hydroCHLOROthiazide (HYDRODIURIL, ESIDRIX) 25 mg tablet Take 25 mg by mouth once daily. - levothyroxine (SYNTHROID) 175 mcg tablet Take 175 mcg by mouth once daily. - MIRABEGRON ORAL Take 50 mg by mouth once daily. - CITALOPRAM HYDROBROMIDE (CITALOPRAM ORAL) Take 20 mg by mouth once daily. - fluconazole (DIFLUCAN) 200 mg tablet Take 150 mg by mouth once daily. As needed - insulin regular human (CONCENTRATED 500 UNIT/ML) Inject 7 Units subcutaneously once daily. - hydrocortisone valerate (WESTCORT) 0.2 % cream Apply to affected area twice daily. - CPAP daily at bedtime. - EPINEPHrine (EPIPEN) 0.3 mg/0.3 mL auto-injector Inject 0.3 mg intramuscularly as needed. - ALBUTEROL 90MCG INHALER inhale 2 puffs q6h prn I have interviewed and examined the patient. I have reviewed the medical record and/or the pre-anesthesia evaluation, pertinent labs, and test results. This contains updated information obtained within 48 hours of Surgery/Procedure. SIGNATURE: Aman Dai MD PATIENT NAME: Dameon Potter DATE: November 22, 2021 TIME: 7:14 AM CSN: [id number] [facility] HISTORY PHYSICALon HISTORY PHYSICAL HNO ID: [id number] Author: Moses Acevedo MD Service: Abstract Author Type: Physician Type: HANDP Filed: 11/22/2021 7:41 AM Note Text: UPDATED HISTORY AND PHYSICAL EXAMINATION SERVICE DATE: 11/22/2021 SERVICE TIME: 7:41 AM PHYSICAL EXAM MUST BE COMPLETED ON ADMISSION The History and Physical (completed in the past 30 days) has been reviewed and the patient has been examined. The contents accurately reflect the patient's condition with the following additions or revisions since the HANDP was completed. Examination indicates no changes. This HANDP can be found in the paper record dated 11/08/2021. SIGNATURE: Moses cAevedo MD PATIENT NAME: Dameon Potter DATE: November 22, 2021 TIME: 7:41 AM [facility] OPERATIVE NOon 11-22-2021 OPERATIVE NO HNO ID: [id number] Author: Moses Acevedo MD Service: Abstract Author Type: Physician Type: Operative Report Filed: 11/22/2021 8:09 AM Note Text: OPERATIVE/PROCEDURE REPORT Patient Name: Dameon Potter LOG ID: [id number] Surgery/Procedure Date: 11/22/2021 Incision/Procedure Start Time: 7:52 AM Incision Close/Procedure End Time: 8:07 AM Surgeon(s)/Procedural ist(s) and Carpenter Mold(s): Surgeon(s) and Role: * Moses Acevedo MD - Primary Procedure(s): Phacoemulsification with posterior chamber intraocular implant left eye. Preoperative Diagnosis: Senile Combined Cataract left eye Postoperative Diagnosis: Senile Combined Cataract left eye Operative Indications: Patient has a history of decreased visual acuity due to cataract. The patient complained of gradual decreased vision in the left eye. Slit lamp exam revealed a mature cataract of the left eye. Ophthalmoscopy showed no macular disease. The risks and benefits were discussed with the patient and the patient was found to be in stable condition by their PCP to undergo cataract surgery. Treatment and exams are expected in the post-operative period. Anesthesia: Monitored Anesthesia Care Procedure Details: The correct eye was identified and marked by me in the preop area. The patient was taken back to the operating room and prepped and draped in the usual sterile fashion for a left eye procedure. Topical tetracaine was applied to the left eye and a lid speculum was placed in the operative eye. The operating microscope was brought into proper position. A paracentesis was placed with a 15 degree blade at the 4 o'clock position and preservative free lidocaine on a 3cc syringe was instilled on a cannula into the anterior chamber. The anterior chamber was then filled with viscoelastic. A clear corneal incision was then placed from the 2 o'clock position. A continuous capsulorrhexis was then created using a cystotome and utrata forceps. [place]-dissection and hydro-delineation were then performed. Phacoemulsification was then undertaken successfully with removal of the entire lens. Any remaining cortex was then aspirated from the eye. The capsular bag was filled with viscoelastic and the lens implant was successfully introduced to the posterior chamber capsule. Any remaining viscoelastic was removed utilizing irrigation and aspiration. BSS on a cannula was used to hydrate the wounds, which was found to be self-sealing. The lid speculum was removed and the anterior chamber remained formed. Vigamox and Prednisolone Acetate drops were instilled into the operative eye and a clear eye shield was placed over the eye for protection. The patient was taken back to the post-operative area in good condition. The post-operative instructions were reviewed with the patient and an instruction sheet was sent home. The patient is to follow up the next day as directed. The patient should call before then if they have any increase in pain or any other concerns. No qualified resident/fellow was available. Estimated Blood Loss: minimal Specimens: * No specimens in log * Implantable Devices: Implant Name Type Inv. Item Serial No. Sewer Pipe Sorter Lot No. LRB Model Num No. Used LENS ACRYSOF ULTRASERT +15.5 DIOPTER ACRYLIC IOL 1 PIECE FOLDABLE UV BLUE - [id number] Intraocular Lens LENS ACRYSOF ULTRASERT +15.5 DIOPTER ACRYLIC IOL 1 PIECE FOLDABLE UV BLUE [id number] [facility] Left ACU0T0.155 1 Drains: None Complications: None Moses Acevedo MD November 22, 2021 8:09 AM [facility] Radiation Onc F/U Noteon Radiation Onc F/U Note [facility] Radiation Oncology RADIATION ONCOLOGY FOLLOW UP PATIENT: Dameon Potter DATE OF SERVICE: 09/01/2021 [facility] : 1955 AGE: 66 PRIMARY SITE: Uterus, 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 MMR proteins intact. STAGE: pT2 NX M0, II HISTORY OF PRESENT ILLNESS: Ms. Potter is a 66-year-old female who presented to her screening representative with postmenopausal bleeding. A D T C was performed on 09/03/2020 which identified grade 2 endometrial cancer, p53 wild-type. She was seen by Dr. Stubbs and on 09/30/2020 underwent a robotic hysterectomy with BSO. Per operative note, due to body habitus, sentinel node removal could not be performed. Pathology was noted to show involvement of the ectocervical/vaginal cuff margin. Patient was referred for radiation therapy. INTERVAL SINCE RADIATION: 7 months 11/29/20 - 01/03/21: 45.00/45.00 Gy to the Pelvis in 25 fractions of 1.80 Gy using the VMAT/Daily IGRT technique with 10 MV over 35 days. 01/14/21 - 01/28/21: 30.00/30.00 Gy to the Vaginal Brachy in 5 fractions of 6.00 Gy using the Brachytherapy technique with HDR: [id number] over 14 days. INTERVAL HISTORY: Patient presents for follow-up. She is scheduled to see her family doctor in the next week or so. There have been no new health issues from that standpoint. She continues to have the intermittent diarrhea with incontinence. She will use her Imodium as needed. She continues to have the bladder issues. Both of these occurred prior to the cancer diagnosis. At this point she feels she has a vaginal yeast infection. She takes Diflucan for this and is asking for a prescription. She notes that this occurs couple times a year. She tries to keep the skin is clean as possible in the pelvic region. She continues to use the wheeled walker. Appetite stable. Energy level stable. She is scheduled to see [facility] in October. She is following with endocrine for diabetes. PAST MEDICAL HISTORY: Anxiety, depression. Asthma. Dry eye syndrome. Gastritis. GE reflux disease. Glaucoma. Hyperlipidemia. Hypertension. Hypothyroidism. Urinary incontinence with overactive bladder. Intestinal malabsorption. Chronic lower extremity lymphedema with venous hypertension. This started following a skin infection of the lower extremities around 2013. Morbid obesity. Obstructive sleep apnea for which a CPAP is utilized. Polycystic ovarian syndrome. Psoriasis. Diabetes. Vitamin D deficiency. Zinc deficiency. Ms. Potter follows at the [facility] for the lower extremity issue. Primary open angle glaucoma. Cataracts. PAST SURGICAL HISTORY: Robotic hysterectomy with BSO 09/30/2020. D T C 09/03/2020. Gastric bypass surgery with laparoscopic gallbladder removal with LRYGB and umbilical hernia repair 01/29/2018. Gum surgery for wisdom teeth in . Thyroglossal duct excision 2000. Partial thyroidectomy for a cyst. Upper endoscopy 03/20/2017. [place] teeth extraction 2012. ALLERGIES: erythromycin (bulk); levofloxacin; nitrofurantoin ([id number]%); macrolides T ketolides; molds T smuts; Quinolones; doxycycline hyclate; Penicillin MEDICATIONS: 1. Alphagan P - 1 Drops Ophthalmic Three times a day 2. atorvastatin - 1 Tablet Oral Daily 3. Benicar - 1 Tablet Oral Daily 4. Calcium With Vitamin D3 - 1 Capsule Oral Three times a day 5. Celexa - 1 Tablet Oral Daily 6. Coreg - 1 Tablet Oral Twice a Day 7. EpiPen - As needed 8. HumuLIN R Regular U-100 Insuln - Injection Twice a Day 9. hydrochlorothiazide - 1 Tablet Oral Daily 10. hydrocortisone - Topical Twice a Day 11. ibuprofen - 1 Tablet Oral Q6H 12. metformin - 1 Tablet Oral Twice a Day 13. Multiple Vitamin - 1 Tablet Oral Daily 14. Myrbetriq - 1 Tablet Oral Daily 15. Proventil (Refill) - 2 Puff(s) Inhalation As needed 16. Synthroid - 1 Tablet Oral Daily 17. Systane Gel - Ophthalmic As needed 18. Timoptic - 1 Drops Ophthalmic Twice a Day 19. Tylenol Extra Strength - 2 Tablet Oral Q6H 20. Vitamin B 12 - weekly 21. zinc - 1 Capsule Oral Daily Medications Last Reconciled by Claudette Salvador MD on 09/01/2021 SUMMARY OF SIGNIFICIANT X-RAY/LABORATORY FINDINGS: CT for radiation planning on 01/10/2021 identified diverticular disease in the sigmoid without diverticulitis. Post-surgery changes noted. REVIEW OF SYSTEMS: Pain: 2. - Mild pain As above. KPS: 70 - Cares for self; unable to carry on normal activity or to do active work PHYSICAL EXAMINATION: VITALS: Temperature 96.6 F (09/01/21), Pulse 63 (09/01/21), Respirations 20 (09/01/21), Blood Pressure 163/86 (09/01/21) Weight 281.4 pounds 09/01/21 Nurse present for full visit. GENERAL: Awake, alert, oriented x3, no anxiety, dressed appropriately, appears of stated age. Ambulates with wheeled walker. Speech pattern fluent. LUNGS: Clear to auscultation. No rales or rhonchi. HEART: Regular rate and (more content not included)... Normal [facility] CT Guidance Radiology Therap yOrdered By: Ino He on 01-11-2021 [id number] Computed Tomography ACCESSION EXAM DATE/TIME PROCEDURE ORDERING PROVIDER [id number] 01/10/2021 10:[address] Nonbill Guide Sandeep HE M.D., INO E Therapy Reason For Exam (CT Nonbill Guide Rad Therapy) TPCT - VAGINAL CYLINDER BRACHYTHERAPY Report CLINICAL INFORMATION: Cervical cancer. Radiation-therapy planning CT. 3 mm axial cuts are obtained through the pelvis without IV or oral contrast. The examination is compared to a previous study dated 11/11/2020. FINDINGS: The vaginal probe is in place. No pelvic masses are identified. Small inguinal nodes are noted bilaterally. There is no evidence of significant pelvic lymphadenopathy. The bladder wall is normal. Numerous sigmoid diverticula are apparent. There are no inflammatory changes in the surrounding mesenteric fat to suggest active diverticulitis. The osseous structures are unremarkable. IMPRESSION: 1. Radiation-therapy planning CT (cervical cancer). 2. Sigmoid diverticular disease without evidence of diverticulitis. Report Dictated on Workstation: [id number] --- Final --- Dictated: 01/11/2021 8:25 am Dictating Physician: MD SIMENTAL JEFFREY Signed Date and Time: 01/11/2021 8:27 am Signed by: MD SIMENTAL JEFFREY Transcribed Date and Time: 01/11/2021 8:25 [facility] Work Phone: [facility], [facility] Incoming Radiology Results From [facility] - 01/11/2021 8:28 AM EDT Patient Name: DAMEON POTTER Computed Tomography ACCESSION EXAM DATE/TIME PROCEDURE ORDERING PROVIDER [id number] 01/10/2021 10:[address] Nonbill Guide Sandeep HE M.D., INO E Therapy Reason For Exam (CT Nonbill Guide Rad Therapy) TPCT - VAGINAL CYLINDER BRACHYTHERAPY Report CLINICAL INFORMATION: Cervical cancer. Radiation-therapy planning CT. 3 mm axial cuts are obtained through the pelvis without IV or oral contrast. The examination is compared to a previous study dated 11/11/2020. FINDINGS: The vaginal probe is in place. No pelvic masses are identified. Small inguinal nodes are noted bilaterally. There is no evidence of significant pelvic lymphadenopathy. The bladder wall is normal. Numerous sigmoid diverticula are apparent. There are no inflammatory changes in the surrounding mesenteric fat to suggest active diverticulitis. The osseous structures are unremarkable. IMPRESSION: 1. Radiation-therapy planning CT (cervical cancer). 2. Sigmoid diverticular disease without evidence of diverticulitis. Report Dictated on Workstation: [id number] --- Final --- Dictated: 01/11/2021 8:25 am Dictating Physician: MD SIMENTAL JEFFREY Signed Date and Time: 01/11/2021 8:27 am Signed by: MD SIMENTAL JEFFREY Transcribed Date and Time: 01/11/2021 8:25 [facility] Work Phone: [facility] Work Phone: CT Nonbill Guide Rad Therapy on 01-10-2021 CT Nonbill Guide Rad Therapy Patient Name: DAMEON POTTER Computed Tomography ACCESSION EXAM DATE/TIME PROCEDURE ORDERING PROVIDER [id number] 01/10/2021 10:[address] Nonbill Guide Sandeep HE M.D., [facility] E Therapy Reason For Exam (CT Nonbill Guide Rad Therapy) TPCT - VAGINAL CYLINDER BRACHYTHERAPY Report CLINICAL INFORMATION: Cervical cancer. Radiation-therapy planning CT. 3 mm axial cuts are obtained through the pelvis without IV or oral contrast. The examination is compared to a previous study dated 11/11/2020. FINDINGS: The vaginal probe is in place. No pelvic masses are identified. Small inguinal nodes are noted bilaterally. There is no evidence of significant pelvic lymphadenopathy. The bladder wall is normal. Numerous sigmoid diverticula are apparent. There are no inflammatory changes in the surrounding mesenteric fat to suggest active diverticulitis. The osseous structures are unremarkable. IMPRESSION: 1. Radiation-therapy planning CT (cervical cancer). 2. Sigmoid diverticular disease without evidence of diverticulitis. Report Dictated on Workstation: [email or web address] Final Dictated: 01/11/2021 8:25 am Dictating Physician: MD SIMENTAL JEFFREY Signed Date and Time: 01/11/2021 8:27 am Signed by: MD SIMENTAL JEFFREY Transcribed Date and Time: 01/11/2021 8:25 Normal [facility] Hemogramon 12-27-2020 Erythrocyte distribution width (RBC) [Ratio] 14.2 % Normal 11.5-14.5 [facility] Comment on above: Performed By: #### H [facility] #### [address] Hematocrit (Bld) [Volume fraction] 38.4 % Normal 35.0-47.0 [facility] Comment on above: Performed By: #### H EMOG #### [facility] [address] [place], [place] Hemoglobin (Bld) [Mass/Vol] 12.7 g/dL Normal 11.7-16.0 [facility] Comment on above: Performed By: #### H EMOG #### [facility] [address] [place], [place] MCH (RBC) [Entitic mass] 29.5 pg Normal 26.0-34.0 [facility] Comment on above: Performed By: #### H EMOG #### [place] [address] [address] [place], [place] MCHC 33.1 % Normal 32.0-36.0 [facility] Comment on above: Performed By: #### H EMOG #### [place] [address] [address] [place], [place] MCV (RBC) [Entitic vol] 89.1 fL Normal 79.0-98.0 S [facility] Comment on above: Performed By: #### H EMOG #### [place] [address] [address], [place] Platelet mean volume (Bld) [Entitic vol] 11.3 fL High 7.4-10.4 [facility] Comment on above: Performed By: #### H EMOG #### [place] [address] [address] [place], [place] Platelets (Bld) [#/Vol] 147 10*3/uL Normal 140-440 [facility] Comment on above: Performed By: #### H EMOG #### [place] [address] [address] [place], [place] RBC (Bld) [#/Vol] 4.31 10*6/uL Normal 3.80-5.20 [facility] Comment on above: Performed By: #### H EMOG #### [place] [address] [address] [place], [place] WBC (Bld) [#/Vol] 5.6 10*3/uL Normal 3.6-10.7 [facility] Comment on above: Performed By: #### H [facility] #### [facility] [address] [place] [address] Laboratory - Chemistry and C hemistry - challengeOrdered By: Ino He on 12-27-2020 Hemoglobin.gastrointestin al spec 1 Ql (Stl) 12.7 g/dL 11.7 - 16.0 g/dL [facility] Work Phone: [phone] Laboratory - Hematology and Cell countsOrdered By: Ino He on 12-27-2020 Hematocrit (Bld) [Volume fraction] 38.4 % 35.0 - 47.0 % [facility] Work Phone: MCH (RBC) [Entitic mass] 29.5 pg 26. 0 - 34.0 pg [facility] Work Phone: MCHC (RBC) [Mass/Vol] 33.1 % 32.0 - 36.0 % [facility] Phone: MCV (RBC) [Entitic vol] 89.1 fL 79.0 - 98.0 fL [facility] Work Phone: [phone] Platelet distribution width (Bld) [Ratio] 14.2 % 11.5 - 14.5 % [employer] Phone: Platelet mean volume (Bld) [Entitic vol] 11.3 fL High 7.4 - 10.4 fL [employer] Phone: Platelets (Bld) [#/Vol] 147 10*3/uL 140 - 440 10*3/uL [facility] Work Phone: RBC (Bld) [#/Vol] 4.31 10*6/uL 3.80 - 5.2 0 10*6/uL [facility] Work Phone: WBC (Bld) [#/Vol] 5.6 10*3/uL 3.6 - 10.7 10*3/uL [facility] Work Phone: No Panel InformationOrdered By: Ino He on 12-27-2020 Interpretation and review of laboratory results Abnormal [facility] Work Phone: [phone] Test Performed by [facility], [address] [place] [id number] [facility] Work Phone: [facility] Work Phone: Hemogramon 12-13-2020 Erythrocyte distribution width (RBC) [Ratio] 13.7 % Normal 11.5-14.5 [facility] Comment on above: Performed By: #### B [facility] #### [address] Hematocrit (Bld) [Volume fraction] 38.2 % Normal 35.0-47.0 [facility] Comment on above: Performed By: #### B [facility] #### [address] Hemoglobin (Bld) [Mass/Vol] 12.6 g/dL Normal 11.7-16.0 [facility] Comment on above: Performed By: #### B [facility] #### [address] MCH (RBC) [Entitic mass] 29.3 pg Normal 26.0-34.0 [facility] Comment on above: Performed By: #### B [facility] #### [address] MCHC 32.9 % Normal 32.0-36.0 [facility] [facility] Comment on above: Performed By: #### B GLU #### [address] MCV (RBC) [Entitic vol] 89.1 fL Normal 79.0-98.0 S [facility] Comment on above: Performed By: #### B GLU #### [address] Platelet mean volume (Bld) [Entitic vol] 11.0 fL High 7.4-10.4 [facility] Comment on above: Performed By: #### B GLU #### [address] Platelets (Bld) [#/Vol] 125 10*3/uL Low 140-440 [facility] [employer] Comment on above: Performed By: #### B GLU #### [facility] [employer] [address] [place], [place] RBC (Bld) [#/Vol] 4.29 10*6/uL Normal 3.80-5.20 [facility] [employer] Comment on above: Performed By: #### B GLU #### [facility] [employer] [facility] [address] [place], [place] WBC (Bld) [#/Vol] 4.3 10*3/uL Normal 3.6-10.7 [facility] [employer] Comment on above: Performed By: #### B GLU #### [facility] [employer] [facility] [address] [place], [place] Laboratory - Chemistry and C hemistry - challengeOrdered By: Ino He on 12-13-2020 Hemoglobin.gastrointestin al spec 1 Ql (Stl) 12.6 g/dL 11.7 - 16.0 g/dL [employer] Work Phone: [phone] Laboratory - Hematology and Cell countsOrdered By: Ino He on 12-13-2020 Hematocrit (Bld) [Volume fraction] 38.2 % 35.0 - 47.0 % [employer] Work Phone: [phone] MCH (RBC) [Entitic mass] 29.3 pg 26. 0 - 34.0 pg [employer] Work Phone: [phone] MCHC (RBC) [Mass/Vol] 32.9 % 32.0 - 36.0 % [employer] Work Phone: [phone] MCV (RBC) [Entitic vol] 89.1 fL 79.0 - 98.0 fL [employer] Work Phone: [phone] Platelet distribution width (Bld) [Ratio] 13.7 % 11.5 - 14.5 % [employer] Work Phone: [phone] Platelet mean volume (Bld) [Entitic vol] 11.0 fL High 7.4 - 10.4 fL [employer] Work Phone: [phone] Platelets (Bld) [#/Vol] 125 10*3/uL Low 140 - 440 10*3/uL [employer] Work Phone: [phone] RBC (Bld) [#/Vol] 4.29 10*6/uL 3.80 - 5.2 0 10*6/uL [employer] Work Phone: [phone] WBC (Bld) [#/Vol] 4.3 10*3/uL 3.6 - 10.7 10*3/uL [employer] Work Phone: [phone] Panel InformationOrdered By: Ino He on 12-13-2020 Interpretation and review of laboratory results Abnormal [employer] Work Phone: [phone] Test Performed by [facility] [address] [employer] Work Phone: [phone] [employer] Work Phone: [phone] CT [facility] Therap yOrdered By: Ino He on 11-11-2020 Patient Name: DAMEON POTTER Computed Tomography ACCESSION EXAM DATE/TIME PROCEDURE ORDERING PROVIDER [id number] 11/11/2020 09:[address] Nonbill Guide Sandeep HE M.D., INO Darnell Therapy Reason For Exam (CT Nonbill Guide Rad Therapy) TPCT for Endometrial ca Report CLINICAL INFORMATION: Endometrial cancer. Radiation-therapy planning CT. 3 mm axial cuts are obtained through the pelvis without IV or oral contrast. The examination is compared to a previous study dated 10/27/2020. FINDINGS: Air and stool are noted in nondistended loops of colon to the level of the rectum. The small bowel is not dilated. There is no hydronephrosis or hydroureter. Postsurgical changes are noted consistent with prior hysterectomy. No free fluid is seen within the pelvis. A small amount of air is noted in the nondependent bladder. The visualized osseous structures are grossly normal. IMPRESSION: 1. Radiation-therapy planning CT. 2. Postoperative changes (hysterectomy). 3. Small amount of air is noted in the bladder lumen. This is most consistent with recent instrumentation. Report Dictated on --- Final --- Dictated: 11/11/2020 4:16 pm Dictating Physician: MD SIMENTAL JEFFREY Signed Date and Time: 11/11/2020 4:17 pm Signed by: MD SIMENTAL JEFFREY Transcribed Date and Time: 11/11/2020 4:16 [facility] Work Phone: [facility], [facility] Incoming Radiology Results From [facility] - 11/11/2020 4:19 PM EDT Patient Name: DAMEON POTTER Computed Tomography ACCESSION EXAM DATE/TIME PROCEDURE ORDERING PROVIDER [id number] 11/11/2020 09:[address] Nonbill Guide Sandeep HE M.D., INO E Therapy Reason For Exam (CT Nonbill Guide Rad Therapy) TPCT for Endometrial ca Report CLINICAL INFORMATION: Endometrial cancer. Radiation-therapy planning CT. 3 mm axial cuts are obtained through the pelvis without IV or oral contrast. The examination is compared to a previous study dated 10/27/2020. FINDINGS: Air and stool are noted in nondistended loops of colon to the level of the rectum. The small bowel is not dilated. There is no hydronephrosis or hydroureter. Postsurgical changes are noted consistent with prior hysterectomy. No free fluid is seen within the pelvis. A small amount of air is noted in the nondependent bladder. The visualized osseous structures are grossly normal. IMPRESSION: 1. Radiation-therapy planning CT. 2. Postoperative changes (hysterectomy). 3. Small amount of air is noted in the bladder lumen. This is most consistent with recent instrumentation. Report Dictated on --- Final --- Dictated: 11/11/2020 4:16 pm Dictating Physician: MD SIMENTAL JEFFREY Signed Date and Time: 11/11/2020 4:17 pm Signed by: MD SIMENTAL JEFFREY Transcribed Date and Time: 11/11/2020 4:16 [facility] Work Phone: [facility] Work Phone: CT Nonbill Guide Rad Therapy on 11-11-2020 CT Nonbill Guide Rad Therapy Patient Name: DAMEON POTTER Computed Tomography ACCESSION EXAM DATE/TIME PROCEDURE ORDERING PROVIDER [id number] 11/11/2020 09:[address] Nonbill Guide Sandeep HE M.D., INO E Therapy Reason For Exam (CT Nonbill Guide Rad Therapy) TPCT for Endometrial ca Report CLINICAL INFORMATION: Endometrial cancer. Radiation-therapy planning CT. 3 mm axial cuts are obtained through the pelvis without IV or oral contrast. The examination is compared to a previous study dated 10/27/2020. FINDINGS: Air and stool are noted in nondistended loops of colon to the level of the rectum. The small bowel is not dilated. There is no hydronephrosis or hydroureter. Postsurgical changes are noted consistent with prior hysterectomy. No free fluid is seen within the pelvis. A small amount of air is noted in the nondependent bladder. The visualized osseous structures are grossly normal. IMPRESSION: 1. Radiation-therapy planning CT. 2. Postoperative changes (hysterectomy). 3. Small amount of air is noted in the bladder lumen. This is most consistent with recent instrumentation. Report Dictated on Final Dictated: 11/11/2020 4:16 pm Dictating Physician: MD ISMENTAL JEFFREY Signed Date and Time: 11/11/2020 4:17 pm Signed by: MD SIMENTAL JEFFREY Transcribed Date and Time: 11/11/2020 4:16 Normal [facility] CT Chest/Abdomen/Pelvis (PO, IV)on 10-27-2020 CT Chest/Abdomen/Pelvis (PO,IV) Patient Name: DAMEON POTTER Computed Tomography ACCESSION EXAM DATE/TIME PROCEDURE ORDERING PROVIDER [id number] 10/27/2020 14:[address] Chest/Abdomen/Pelvis Lamine HE, INO E (PO,IV) CPT code 15565 10367 [id number] Reason For Exam (CT Chest/Abdomen/Pelvis (PO,IV)) staging s/p hysterectomy, BSO Report CT CHEST, ABDOMEN, AND PELVIS WITH CONTRAST CLINICAL INDICATION: Endometrial cancer follow-up. Status post hysterectomy. Serial, axial CT images were obtained through the chest, abdomen, and pelvis after intravenous contrast. 75 milliliters of Isovue 370 contrast was given intravenously. Oral contrast was given for this examination. Coronal and sagittal reformatted images were also made available for interpretation. COMPARISON: Abdominal ultrasound dated 06/20/2017 CHEST: No focal consolidation is seen within the lungs. There is no pleural effusion or pneumothorax. No pulmonary nodules are identified. There is no hilar, mediastinal, or axillary lymphadenopathy. The heart size is within normal limits. There is no pericardial effusion. The thoracic aorta appears normal in caliber. No lytic or blastic lesions are seen on the bone windows. IMPRESSION: No suspicious pulmonary nodules are identified. No lymphadenopathy or mass is identified within the chest. ABDOMEN AND PELVIS: The gallbladder has been removed. There is a small cyst arising from the lateral cortex of the left kidney measuring approximately 1 cm. The liver, spleen, pancreas, adrenal glands and right kidney appear within normal limits. The abdominal aorta is normal in caliber. There is no retroperitoneal, pelvic, or inguinal lymphadenopathy. The urinary bladder is empty, limiting evaluation. The uterus has been removed. Computed Tomography Report Diverticulosis of the distal colon is noted. Postoperative changes consistent with gastric bypass are noted. The large and small bowel otherwise appears within normal limits without evidence of wall thickening or dilatation. There is no free fluid within the abdomen or pelvis. There is no free air under the diaphragm. No lytic or blastic lesions are seen on the bone windows. IMPRESSION: No lymphadenopathy or suspicious mass is identified within the abdomen or pelvis. Status post hysterectomy. Postoperative changes consistent with gastric bypass are also noted. Small left renal cyst. Report Dictated on Final Dictated: 10/28/2020 8:06 am Dictating Physician: MD LUIS JONATHAN R Signed Date and Time: 10/28/2020 8:57 am Signed by: MD LUIS JONATHAN R Transcribed Date and Time: 10/28/2020 8:06 Normal [facility] Glucose,Bedsideon 10-01-2020 Glucose [Mass/Vol] 263 mg/dL High 70-100 [facility] Comment on above: Result Comment: Test performed by glucose meter. Results may be 10%-15% lower than serum/plasma values. (CLIA ID [id number]) Performed By: #### B GLU #### [facility] [employer] [facility] [address] [place] [address] Glucose [Mass/Vol] 321 mg/dL High 70-100 [facility] Comment on above: Result Comment: Test performed by glucose meter. Results may be 10%-15% lower than serum/plasma values. (CLIA ID [id number]) Performed By: #### B GLU #### [facility] [address] [place] [address] Glucose [Mass/Vol] 341 mg/dL High 70-100 [facility] Comment on above: Result Comment: Test performed by glucose meter. Results may be 10%-15% lower than serum/plasma values. (CLIA ID [id number]) Performed By: #### B GLU #### [facility] [address] [place] [address] POCT Glucoseon 10-01-2020 Glucose [Mass/Vol] 263 mg/dL High 70 - 100 mg/dL [facility] Work Phone: Comment on above: Test performed by gl ucose meter. Results may be 10%-15% lower than serum/plasma values. (CLIA ID [id number]) Interpretation and review of laboratory results Abnormal [facility] Work Phone: Test Performed by [facility], [address] [place] [id number] [facility] Work Phone: Glucose [Mass/Vol] 321 mg/dL High 70 - 100 mg/dL [facility] Work Phone: Comment on above: Test performed by gl ucose meter. Results may be 10%-15% lower than serum/plasma values. (CLIA ID [id number]) Interpretation and review of laboratory results Abnormal [employer] Work Phone: Test Performed by [facility], [address] [place] [address] [facility] Work Phone: Glucose [Mass/Vol] 341 mg/dL High 70 - 100 mg/dL [facility] Work Phone: Comment on above: Test performed by gl ucose meter. Results may be 10%-15% lower than serum/plasma values. (CLIA ID [id number]) Interpretation and review of laboratory results Abnormal [facility] Work Phone: Test Performed by [facility], [address] [place] [address] [facility] Work Phone: Surgical Pathologyon 021 Sodium [Moles/Vol] SEE BELOW [facility] Work Phone: [phone] [facility] 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, NOS Histologic Type Comments: Partial microcystic, elongated, and fragmented (MELF) growth pattern Histologic Grade: FIGO grade 1 Myometrial Invasion: Present Depth of Myometrial Invasion (Millimeters): 13 mm Myometrial Thickness (Millimeters): 23 mm Percentage of Myometrial Invasion: 55% Adenomyosis: Present, involved by carcinoma Uterine Serosa Involvement: Not identified Cervical Stromal Involvement: Present Other Tissue / Organ Involvement: Not identified Lymphovascular Invasion: Present MARGINS: Ectocervical / Vaginal Cuff Margin: Involved by carcinoma LYMPH NODES Regional Lymph Nodes: No lymph nodes submitted or found PATHOLOGIC STAGE CLASSIFICATION (pTNM, AJCC 8th Edition) Note: Reporting of pT, pN, and (when applicable) pM categories is based on information available to the pathologist at the time the report is issued. As per the AJCC (Chapter 1, 8th Ed.) it is the managing physician's responsibility to establish the final pathologic stage based upon all pertinent information, including but potentially not limited to this pathology report. Primary Tumor (pT): pT2 Regional Lymph Nodes (pN): pNX FIGO STAGE FIGO Stage: II Comment(s): Pending MMR IHC SKEET OPERATOR TUMOR BLOCK(S): A5 JAW/JAW Intradepartmental Consultation: HERNAN BARR M.D.; (select slides) Signature> MANISH NOBLES M.D. CLINICAL INFORMATION: Grade 1 endometrial cancer SPECIMEN: UTERUS (RFN), WITH/WITHOUT TUBES AND OVARIES GROSS DESCRIPTION: Received in formalin labeled uterus, cervix, bilateral fallopian tubes and ovaries is a previously opened uterus with bilateral fallopian tubes and ovaries. The uterus measures 6 x 8 x 5 cm and weighs 126 g. The left fallopian tube measures 5 cm in length with an average diameter of 0.6 cm. The right fallopian tube measures 6 cm in length with an average diameter of 0.5 cm. Both fallopian tubes have fimbriated ends. The left ovary measures 2.5 x 1.5 x 1 cm. The right ovary measures 2.5 x 2 x 1 cm. The serosal surface of the uterus is pink-carrasco, glistening and unremarkable. The cervix is approximately 3 cm in diameter and has a cervical os measuring 0.8 cm in diameter. The endocervical canal measures 3 cm in length and the endometrial cavity measures 3.5 x 4.5 cm. There is a surgical cut in the posterior endometrium in an area where there is a lesion measuring 3 x 3 cm. Sectioning through the endomyometrium reveals this lesion reaches a depth of approximately 1 cm and is involving the myometrium to approximately 20% of the myometrium. The left and right fallopian tubes have unremarkable pinpoint lumens and the left and right ovaries have unremarkable ahn yellow cut surfaces consistent with ovarian tissue. No cysts or lesions are identified in the ovaries. Data Mining Analyst sections of the specimen are submitted as follows: Cassette Summary: A1) Anterior cervix. A2-A4) Anterior endomyometrium. A5) Posterior cervix. A6-A10) Data Mining Analyst sections of tumor with areas of greatest depth of involvement. A11) Left ovary. A12) Left fallopian tube and fimbriae. A13) Right fallopian tube and fimbriae. A14) Right ovary. YRS/KMS1 Disclaimer: The following statement applies to all immunohistochemistry, in situ hybridization, molecular studies, and immunofluorescence testing. The use of one or more reagents in the above tests is regulated as an analyte specific reagent (ASR). These tests were developed and their performance characteristics determined by the clinical laboratories of [facility]. They have not been cleared by the US Food and Drug Administration (FDA). The FDA has determined that such clearance or approval is not necessary. All the above immunostains were performed on paraffin embedded tissue. Appropriate positive and negative controls (where applicable) were run in parallel with the patient's specimen; these controls showed expected staining pattern, with acceptable intensity of staining. Immunohistochemical assays have not been validated on decalcified tissues. Results should be interpreted with caution given the raised possibility of false negativity on decalcified specimens. Professional Performing Location: [address] [address]. DEPARTMENT OF PATHOLOGY AND LABORATORY MEDICINE [place], [place] [address] [facility] Work Phone: TSH without Reflexon 021 TSH Qn 1.005 u[IU]/mL 0.465 - 4.680 u[IU]/mL [facility] Work Phone: Test Performed by [facility], [facility] [place], [place] [address] [place] [address] Work Phone: Thyroid Stim. Hormoneon 09-20 Thyroid Stim. Hormone 1.005 u[IU]/mL Normal 0.465-4.68 0 [facility] Comment on above: Performed By: #### B GLU #### [facility] [address] [place] [address] Glucose,Bedsideon 09-30-2020 Glucose [Mass/Vol] 355 mg/dL High 70-100 [facility] Comment on above: Result Comment: Test performed by glucose meter. Results may be 10%-15% lower than serum/plasma values. (CLIA ID [id number]) Performed By: #### B GLU #### [facility] [place] [address] Glucose [Mass/Vol] 388 mg/dL High 70-100 [facility] Comment on above: Result Comment: Test performed by glucose meter. Results may be 10%-15% lower than serum/plasma values. (CLIA ID [id number]) Performed By: #### B GLU #### [facility] [place] [address] Glucose [Mass/Vol] 366 mg/dL High 70-100 [facility] Comment on above: Result Comment: Test performed by glucose meter. Results may be 10%-15% lower than serum/plasma values. (CLIA ID [id number]) Performed By: #### B GLU #### [facility] [address] [place] [address] Glucose [Mass/Vol] 288 mg/dL High 70-100 [facility] Comment on above: Result Comment: Test performed by glucose meter. Results may be 10%-15% lower than serum/plasma values. (CLIA ID [id number]) Performed By: #### B GLU #### [facility] [address] [place] [address] Glucose [Mass/Vol] 308 mg/dL High 70-100 [facility] Comment on above: Result Comment: Test performed by glucose meter. Results may be 10%-15% lower than serum/plasma values. (CLIA ID [id number]) Performed By: #### B GLU #### [facility] [address] [place] [address] Glucose [Mass/Vol] 379 mg/dL High 70-100 [facility] Comment on above: Result Comment: Test performed by glucose meter. Results may be 10%-15% lower than serum/plasma values. (CLIA ID [id number]) Performed By: #### B GLU #### [facility] [address] [place] [address] Glucose [Mass/Vol] 317 mg/dL High 70-100 [facility] Comment on above: Result Comment: Test performed by glucose meter. Results may be 10%-15% lower than serum/plasma values. (CLIA ID [id number]) Performed By: #### B GLU #### [facility] [employer] [facility] [address] [place] [address] Glucose [Mass/Vol] 343 mg/dL High 70-100 [facility] Comment on above: Result Comment: Test performed by glucose meter. Results may be 10%-15% lower than serum/plasma values. (CLIA ID [id number]) Performed By: #### B GLU #### [facility] [address] [place] [address] Glucose [Mass/Vol] 330 mg/dL High 70-100 [facility] Comment on above: Result Comment: Test performed by glucose meter. Results may be 10%-15% lower than serum/plasma values. (CLIA ID [id number]) Performed By: #### B GLU #### [facility] [address] [place] [address] POCT Glucoseon 09-30-2020 Glucose [Mass/Vol] 355 mg/dL High 70 - 100 mg/dL [facility] Work Phone: Comment on above: Test performed by gl ucose meter. Results may be 10%-15% lower than serum/plasma values. (CLIA ID [id number]) Interpretation and review of laboratory results Abnormal [facility] Work Phone: 1 Test Performed by [facility], [place] [address] [facility] Work Phone: 1 Glucose [Mass/Vol] 388 mg/dL High 70 - 100 mg/dL [facility] Work Phone: 1 Comment on above: Test performed by gl ucose meter. Results may be 10%-15% lower than serum/plasma values. (CLIA ID [id number]) Interpretation and review of laboratory results Abnormal [facility] Work Phone: 1 Test Performed by [facility], [place] [address] [facility] Work Phone: 1 Glucose [Mass/Vol] 366 mg/dL High 70 - 100 mg/dL [facility] Work Phone: 1 Comment on above: Test performed by gl ucose meter. Results may be 10%-15% lower than serum/plasma values. (CLIA ID [id number]) Interpretation and review of laboratory results Abnormal [facility] Work Phone: 1 Test Performed by [facility], [place] [address] [employer] Work Phone: 1 Glucose [Mass/Vol] 288 mg/dL High 70 - 100 mg/dL [facility] Work Phone: 1 Comment on above: Test performed by gl ucose meter. Results may be 10%-15% lower than serum/plasma values. (CLIA ID [id number]) Interpretation and review of laboratory results Abnormal [facility] Work Phone: 1 22 Test Performed by [facility], [place] [address] [employer] Work Phone: 1 Glucose [Mass/Vol] 308 mg/dL High 70 - 100 mg/dL [facility] Work Phone: 1 Comment on above: Test performed by gl ucose meter. Results may be 10%-15% lower than serum/plasma values. (CLIA ID [id number]) Interpretation and review of laboratory results Abnormal [facility] Work Phone: 1 22 Test Performed by [facility], [place] [address] [employer] Work Phone: 1 22 Glucose [Mass/Vol] 379 mg/dL High 70 - 100 mg/dL [employer] Work Phone: 1 Comment on above: Test performed by gl ucose meter. Results may be 10%-15% lower than serum/plasma values. (CLIA ID [id number]) Interpretation and review of laboratory results Abnormal [facility] Work Phone: 1 22 Test Performed by [facility], [facility] [place] [address] [employer] Work Phone: 1 22 Glucose [Mass/Vol] 317 mg/dL High 70 - 100 mg/dL [employer] Work Phone: 1 Comment on above: Test performed by gl ucose meter. Results may be 10%-15% lower than serum/plasma values. (CLIA ID [id number]) Interpretation and review of laboratory results Abnormal [facility] Work Phone: 1 22 Test Performed by [facility], [facility] [place] [address] [employer] Work Phone: 1 22 Glucose [Mass/Vol] 343 mg/dL High 70 - 100 mg/dL [facility] Work Phone: 1 Comment on above: Test performed by gl ucose meter. Results may be 10%-15% lower than serum/plasma values. (CLIA ID [id number]) Interpretation and review of laboratory results Abnormal [facility] Work Phone: 1 22 Test Performed by [facility], [place] [address] [employer] Work Phone: 1 22 Glucose [Mass/Vol] 330 mg/dL High 70 - 100 mg/dL [facility] Work Phone: 1 Comment on above: Test performed by gl ucose meter. Results may be 10%-15% lower than serum/plasma values. (CLIA ID [id number]) Interpretation and review of laboratory results Abnormal [facility] Work Phone: Test Performed by [facility], [address] [place] [address] [facility] Work Phone: Surgical Pathologyon 021 Surgical Pathology [id number] [facility] 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 Type: Endometrioid carcinoma, NOS Histologic Type Comments: Partial microcystic, elongated, and fragmented (MELF) growth pattern Histologic Grade: FIGO grade 1 Myometrial Invasion: Present Depth of Myometrial Invasion (Millimeters): 13 mm Myometrial Thickness (Millimeters): 23 mm Percentage of Myometrial Invasion: 55% Adenomyosis: Present, involved by carcinoma Uterine Serosa Involvement: Not identified Cervical Stromal Involvement: Present Other Tissue / Organ Involvement: Not identified Lymphovascular Invasion: Present MARGINS: Ectocervical / Vaginal Cuff Margin: Involved by carcinoma LYMPH NODES Regional Lymph Nodes: No lymph nodes submitted or found PATHOLOGIC STAGE CLASSIFICATION (pTNM, AJCC 8th Edition) Note: Reporting of pT, pN, and (when applicable) pM categories is based on information available to the pathologist at the time the report is issued. As per the AJCC (Chapter 1, 8th Ed.) it is the managing physician's responsibility to establish the final pathologic stage based upon all pertinent information, including but potentially not limited to this pathology report. Primary Tumor (pT): pT2 Regional Lymph Nodes (pN): pNX FIGO STAGE FIGO Stage: II Comment(s): Pending MMR IHC SKEET OPERATOR TUMOR BLOCK(S): A5 JAW/JAW Intradepartmental Consultation: HERNAN BARR M.D.; (select slides) Signature> MANISH NOBLES M.D. CLINICAL INFORMATION: Grade 1 endometrial cancer SPECIMEN: UTERUS (RFN), WITH/WITHOUT TUBES AND OVARIES GROSS DESCRIPTION: Received in formalin labeled uterus, cervix, bilateral fallopian tubes and ovaries is a previously opened uterus with bilateral fallopian tubes and ovaries. The uterus measures 6 x 8 x 5 cm and weighs 126 g. The left fallopian tube measures 5 cm in length with an average diameter of 0.6 cm. The right fallopian tube measures 6 cm in length with an average diameter of 0.5 cm. Both fallopian tubes have fimbriated ends. The left ovary measures 2.5 x 1.5 x 1 cm. The right ovary measures 2.5 x 2 x 1 cm. The serosal surface of the uterus is pink-carrasco, glistening and unremarkable. The cervix is approximately 3 cm in diameter and has a cervical os measuring 0.8 cm in diameter. The endocervical canal measures 3 cm in length and the endometrial cavity measures 3.5 x 4.5 cm. There is a surgical cut in the posterior endometrium in an area where there is a lesion measuring 3 x 3 cm. Sectioning through the endomyometrium reveals this lesion reaches a depth of approximately 1 cm and is involving the myometrium to approximately 20% of the myometrium. The left and right fallopian tubes have unremarkable pinpoint lumens and the left and right ovaries have unremarkable ahn yellow cut surfaces consistent with ovarian tissue. No cysts or lesions are identified in the ovaries. Data Mining Analyst sections of the specimen are submitted as follows: Cassette Summary: A1) Anterior cervix. A2-A4) Anterior endomyometrium. A5) Posterior cervix. A6-A10) Data Mining Analyst sections of tumor with areas of greatest depth of involvement. A11) Left ovary. A12) Left fallopian tube and fimbriae. A13) Right fallopian tube and fimbriae. A14) Right ovary. YRS/KMS1 Disclaimer: The following statement applies to all immunohistochemistry, in situ hybridization, molecular studies, and immunofluorescence testing. The use of one or more reagents in the above tests is regulated as an analyte specific reagent (ASR). These tests were developed and their performance characteristics determined by the clinical laboratories of [facility]. They have not been cleared by the US Food and Drug Administration (FDA). The FDA has determined that such clearance or approval is not necessary. All the above immunostains were performed on paraffin embedded tissue. Appropriate positive and negative controls (where applicable) were run in parall (more content not included)... Normal [facility] Basic Metabolic Panelon 03-0 Anion gap [Moles/Vol] 8 mmol/L Normal 3-13 [facility] Comment on above: Performed By: #### B GLU #### [facility] [address] [place] [address] Calcium [Mass/Vol] 8.8 mg/dL Normal 8.4-10.4 [facility] Comment on above: Performed By: #### B GLU #### [facility] [address] [place] [address] CO2 [Moles/Vol] 24 mmol/L Normal 22-30 [facility] Comment on above: Performed By: #### B GLU #### [facility] [address] [place], [place] Creatinine [Mass/Vol] 0.56 mg/dL Normal 0.52-1.25 [facility] Comment on above: Performed By: #### B GLU #### [facility] [address] [place], [place] eGFR OTHER > 90.0 Normal >60 [facility] Comment on above: Result Comment: KDIG O guidelines provide the following GFR categories: Stage GFR(ml/min/1.73 m2) Terms G1 >=90 Normal or high G2 60-89 Mildly decreased* G3a 45-59 Mildly to moderately decreased G3b 30-44 Moderately to severely decreased G4 15-29 Severely decreased G5 <15 Kidney failure *Relative to young adult level. In the absence of evidence of kidney damage, neither GFR category G1 nor G2 fulfill the criteria for CKD. The CKD-EPI equation is validated in individuals 18 years of age and older. Currently the best equation for estimating glomerular filtration rate (GFR) from serum creatinine in children is the Bedside Jin equation. It is less accurate in patients with extremes of muscle mass, restriction of dietary protein, ingestion of creatine, extra-renal metabolism of creatinine, or treatment with medications that affect renal tubular creatinine secretion. Performed By: #### B GLU #### [address] [address] [place], [place] GFR/1.73 sq M.predicted among blacks MDRD (S/P/Bld) [Vol rate/Area] mL/min/{1.73_m2} Normal >60 [facility] Comment on above: Performed By: #### B GLU #### [address] [address] [address] [place], [place] Glucose [Mass/Vol] 334 mg/dL High 70-100 [facility] Comment on above: Performed By: #### B GLU #### [address] Urea nitrogen [Mass/Vol] 14 mg/dL Normal 7-20 [facility] Comment on above: Performed By: #### B GLU #### [address] [address] [place], [place] Chloride [Moles/Vol] 105 mmol/L Normal 98-107 [facility] Comment on above: Performed By: #### B GLU #### [facility] [address] [place], [place] Potassium [Moles/Vol] 4.3 mmol/L Normal 3.5-5.1 [facility] Comment on above: Performed By: #### B GLU #### [facility] [address] [place], [place] Sodium [Moles/Vol] 136 mmol/L Normal 135-145 [facility] Comment on above: Performed By: #### B GLU #### [facility] [address] [place], [place] Anion gap [Moles/Vol] 8 mmol/L 3 - 13 mmol/L [facility] Work Phone: Calcium [Mass/Vol] 8.8 mg/dL 8.4 - 10. 4 mg/dL [facility] Work Phone: Chloride [Moles/Vol] 105 mmol/L 98 - 10 7 mmol/L [facility] Work Phone: CO2 [Moles/Vol] 24 mmol/L 22 - 30 mmol/L [facility] Work Phone: Creatinine [Mass/Vol] 0.56 mg/dL 0.52 - 1.25 mg/dL [facility] Work Phone: EGFR IF NonAfrican Serbian >90.0 >60 mL/min [facility] Work Phone: Comment on above: KDIGO guidelines pro vide the following GFR categories: Stage GFR(ml/min/1.73 m2) Terms G1 >=90 Normal or high G2 60-89 Mildly decreased* G3a 45-59 Mildly to moderately decreased G3b 30-44 Moderately to severely decreased G4 15-29 Severely decreased G5 <15 Kidney failure *Relative to young adult level. In the absence of evidence of kidney damage, neither GFR category G1 nor G2 fulfill the criteria for CKD. The CKD-EPI equation is validated in individuals 18 years of age and older. Currently the best equation for estimating glomerular filtration rate (GFR) from serum creatinine in children is the Bedside Jin equation. It is less accurate in patients with extremes of muscle mass, restriction of dietary protein, ingestion of creatine, extra-renal metabolism of creatinine, or treatment with medications that affect renal tubular creatinine secretion. GFR/1.73 sq M predicted among blacks MDRD (S/P/Bld) [Vol rate/Area] mL/min/{1.73_m2} >60 mL/min [employer] Work Phone: 1 Glucose [Mass/Vol] 334 mg/dL High 70 - 100 mg/dL [facility] Work Phone: Interpretation and review of laboratory results Abnormal [facility] Work Phone: Potassium [Moles/Vol] 4.3 mmol/L 3.5 - 5.1 mmol/L [facility] Work Phone: Sodium [Moles/Vol] 136 mmol/L 135 - 145 mmol/L [facility] Work Phone: Urea nitrogen [Mass/Vol] 14 mg/dL 7 - 20 mg/dL [facility] Work Phone: Test Performed by [facility], [address] [place] [id number] [place], [place] [address] Work Phone: [phone] Hemoglobin AND Hematocriton 09-23-2020 Hematocrit (Bld) [Volume fraction] 38.0 % Normal 35.0-47.0 [facility] [employer] [facility] Comment on above: Performed By: #### B GLU #### [facility] [address] [place] [phone] Hemoglobin (Bld) [Mass/Vol] 12.7 g/dL Normal 11.7-16.0 [facility] [employer] Comment on above: Performed By: #### B GLU #### [facility] [address] [place] [phone] Hemoglobin and Hematocrit, B loodon 09-23-2020 Hematocrit (Bld) [Volume fraction] 38.0 % 35 - 47 % [facility] Work Phone: [phone] Hemoglobin (Bld) [Mass/Vol] 12.7 g/dL 11.7 - 16 g/dL [employer] Work Phone: [phone] Test Performed by [facility], [address] [place] [address] [employer] Work Phone: TS GELon 09-23-2020 TS GEL ABO Group: A Rh, Gel: POS Antibody Screen Gel: NEG Normal [facility] Comment on above: Performed By: #### B GLU #### [facility] [address] [place] [phone] TYPE AND SCREENon 09-23-2020 Sodium [Moles/Vol] A [employer] Work Phone: Sodium [Moles/Vol] Negative [facility] Work Phone: Sodium [Moles/Vol] Positive [employer] Work Phone: Test Performed by [facility], [address] [place] [address] [employer] Work Phone: ANES POSTPROC EVALon 021 ANES POSTPROC EVAL HNO ID: [id number] Author: Toshia Castillo Service: Anesthesiology Author Type: Physician Type: Anesthesia Postprocedure Evaluation Filed: 09/03/2020 9:43 AM Note Text: POST ANESTHESIA EVALUATION NOTE : 1955 Procedure Summary Date: 09/03/20 Room / Location: [address] Anesthesia Start: 8 Anesthesia Stop: 844 Procedure: HYSTEROSCOPY, DANDC WITH TRUCLEAR (N/A ) Diagnosis: Post-menopausal bleeding Atypical squamous cell changes cervix of undetermined significance favor dysplasia (Post-menopausal bleeding [N95.0]) (Atypical squamous cell changes cervix of undetermined significance favor dysplasia [R87.610]) Surgeons: Eric Butt Responsible Provider: Toshia Castillo Anesthesia Type: general ASA Status: 3 Anesthesia Type: general Last vitals Vitals Value Taken Time BP 157/72 09/03/20 0913 Temp 37 ?C (98.6 ?F) 09/03/20 0843 Pulse 65 09/03/20 0913 Resp 16 09/03/20 0913 SpO2 93 % 09/03/20912 Vitals shown include unvalidated device data. Post Anesthesia Patient Status Patient Evaluation: PACU. Anticipated Disposition: phase 2 then home. Neurological Status: aware and responsive. Pulmonary Status: breathing comfortably on room air Airway Control: returned to baseline unsupported. Cardiovascular Status: stable. Pain Management: clinically adequate Postoperative Hydration: acceptable. Intraoperative Events: no significant anesthesia events Post Operative Nausea/Vomiting Status: no significant post operative nausea or vomiting Anesthetic Observations: Recommendation: continue current plan of care. SIGNATURE: Toshia Castillo MD PATIENT NAME: Dameon Potter DATE: September 03, 2020 TIME: 9:43 AM CSN: [id number] [facility] ANES PRE-OPon 09-03-2020 ANES PRE-OP HNO ID: [id number] Author: Toshia Castillo Service: Anesthesiology Author Type: Physician Type: Anesthesia Preprocedure Evaluation Filed: 09/03/2020 7:55 AM Note Text: ANESTHESIOLOGY DAY OF SURGERY NOTE : 1955 Procedure(s) (LRB): HYSTEROSCOPY, DANDC WITH TRUCLEAR (N/A) Surgeon(s): Eric Butt Estimated body mass index is 45.19 kg/m? as calculated from the following: Height as of this encounter: 167.6 cm (5' 6). Weight as of this encounter: 127 kg (280 lb). 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 Mallampati: II. TM distance: >3 FB. Neck ROM: full ROM without neurological symptoms. Mouth opening: adequate. DENTAL Dental findings: missing tooth/teeth, poor dentition, broken tooth and chipped. II - ANESTHESIA PLAN ASA Score: 3 Anesthetic Plan: general Airway type: ETT The patient is not a current smoker. NPO Status: adequate Monitoring plan: standard ASA. Postoperative analgesic plan: parenteral or oral opioids. Anesthetic Risks, Benefits, Alternatives, Personnel Discussed. Consent obtained from: guardian / power of document review attorney.Patient / Surrogate agrees to blood products: blood products not planned Significant changes in the patient condition since the History and Physical, not otherwise documented in primary service progress note: no. Potential Anesthesia issues that may suggest increased risk of complications or contraindication to planned procedure: none. Vitals Value Taken Time BP 155/68 09/03/20731 Pulse 63 09/03/20731 Resp 20 09/03/20731 Temp 37.1 ?C (98.8 ?F) 09/03/20731 SpO2 97 % 09/03/20731 Facility-Administered Medications as of 09/03/2020 Medication Dose Route Frequency - lidocaine 10 mg/mL (1 %) 1-2 mg injection (XYLOCAINE) 0.1-0.2 mL INTRADERMAL PRN - lactated ringers infusion 5-30 mL/hr INTRAVENOUS CONTINUOUS Outpatient Medications as of 09/03/2020 Medication Sig - olmesartan (BENICAR) 40 mg tablet 1 tab(s) - carvedilol (COREG) 6.25 mg tablet Take by mouth q 12 HR. - brimonidine (ALPHAGAN P) 0.1 % drop Use 1 Drop in both eyes three times daily. - timolol maleate (TIMOPTIC) 0.5 % ophthalmic solution Use 1 Drop in both eyes twice daily. - Pedi Multivit No.7-Folic Acid (FLINTSTONES MULTI-VIT GUMMIES) 100 mcg chew Take 1 tablet by mouth. - atorvastatin (LIPITOR) 40 mg tablet Take 40 mg by mouth once daily. - CPAP daily at bedtime. - hydroCHLOROthiazide (HYDRODIURIL, ESIDRIX) 25 mg tablet Take 25 mg by mouth once daily. - levothyroxine (SYNTHROID) 175 mcg tablet Take 175 mcg by mouth once daily. - MIRABEGRON ORAL Take 50 mg by mouth. - CITALOPRAM HYDROBROMIDE (CITALOPRAM ORAL) Take 20 mg by mouth. - ALBUTEROL 90MCG INHALER inhale 2 puffs q6h prn - EPINEPHrine (EPIPEN) 0.3 mg/0.3 mL auto-injector Inject 0.3 mg intramuscularly as needed. - potassium chloride SR (MICRO-K) 10 mEq CR capsule I have interviewed and examined the patient. I have reviewed the medical record and/or the pre-anesthesia evaluation, pertinent labs, and test results. This contains updated information obtained within 48 hours of Surgery/Procedure. SIGNATURE: Toshia Castillo MD PATIENT NAME: Dameon Potter DATE: September 03, 2020 TIME: 7:14 AM CSN: [id number] [facility] NURSING PROGon 09-03-2020 NURSING PROG HNO ID: [id number] Author: Radha (Rn) VALENTÍN Brownlee Service: ? Author Type: Registered Nurse Type: Nursing Progress Note Filed: 09/03/2020 11:10 AM Note Text: RIDE ARRIVED. VOIDED IN BR. SMALL AMOUNT VAG BLOOD NOTED PATIENT DISCHARGED TO HOME IN CARE OF FAMILY IN STABLE CONDITION Patient Vitals for the past 24 hrs: BP Temp Temp src Pulse Resp SpO2 Height Weight 09/03/20 0910 157/72 ? ? 67 18 94 % ? ? 09/03/20 0900 162/61 ? ? 68 17 93 % ? ? 09/03/20 0850 163/85 ? ? 66 19 98 % ? ? 09/03/20 0843 ? 37 ?C (98.6 ?F) ? 68 19 97 % ? ? 09/03/20 0842 ? ? ? 69 17 97 % ? ? 09/03/20 0841 164/80 37 ?C (98.6 ?F) ? ? 18 ? ? ? 09/03/20 0732 155/68 37.1 ?C (98.8 ?F) Temporal 63 20 97 % 167.6 cm (5' 6) 127 kg (280 lb) Normal [facility] OPERATIVE NOon 09-03-2020 OPERATIVE NO HNO ID: [id number] Author: Eric Butt Service: Gynecology Author Type: Physician Type: Operative Report Filed: 09/03/2020 8:54 AM Note Text: KNITTER HAND OPERATIVE/PROCEDURE REPORT LOG ID: [id number] Surgery/Procedure Date: 09/03/2020 Incision/Procedure Start Time: 0813 Incision Close/Procedure End Time: 0838 Surgeon(s)/Procedural ist(s) and Carpenter Mold(s): Surgeon(s) and Role: * Eric Butt - Primary Informed Consent: Informed Consent obtained and on the chart Procedure: Hysteroscopy with DANDC Pre-Op/Pre-Procedure Diagnosis: Postmenopausal bleeding, Thickened endometrial stripe and Morbid obesity Post-Op/Post-Procedur e Diagnosis: Same as pre-op diagnosis Antibiotic: None Procedure Details: Patient was taken to the operating room where the sign-in and time out were completed. General anesthesia was induced and found to be adequate. She was placed in dorsal lithotomy position with her feet in Yellowfin stirrups with careful attention not to hyperflex or hyperextend the knees or hips. SCDs were placed and turned on for DVT prophylaxis. Examination under anesthesia was performed to ascertain the position of the uterus which noted to be midposition. Patient was prepped and draped in the usual fashion. An open-sided speculum was placed in the patient's vagina with clear visualization of the cervix. The anterior lip of the cervix was grasped with a single tooth tenaculum. Cervix was injected with marcaine. Cervix was dilated to 8 mm with Hegar dilator. A Truclear hysteroscope was introduced under direct visualization, and the uterus was distended with normal saline. The hysteroscope was then used for initial survey revealing below findings. The uterine cavity was well visualized. The fallopian tube ostia were visualized bilaterally. Findings: Endometrium: Normal endometrium and Thickened endometrium Endometrial cavity: Abnormal: posterior wall mass Polyps: No polyps Fibroids: No fibroids Other: None Additional techniques Include: TRUCLEAR MORCELLATOR: The Truclear morcellator was then placed into the uterine cavity and under direct visualization, the posterior wall mass was morcellated and sent to Pathology. The cavity was noted to be empty and good hemostasis was noted. DANDC: A curette was introduced into the uterus without difficulty. A sharp curettage was performed gently. The endometrium curettings were collected on a telfa dressing. All instruments were removed from vagina and uterine cavity. Sign-out was completed. Distention Media: Normal saline IV Fluids: 600 mL Urine Output: 100 mL Estimated Blood Loss: < 10 mL Specimens: Endometrial curettings and uterine mass Implantable Devices: None Drains: None Complications: None A digital sweep of the vaginal canal was performed by Eric Butt MD and it was ascertained that no instruments or other foreign bodies are retained within the cavity. Sponge, lap, and needle counts were correct times two and the patient was taken to the recovery room with stable vital signs after tolerating the procedure well. No qualified resident/fellow was available. SIGNATURE: Eric Butt MD PATIENT NAME: Dameon Potter DATE: September 03, 2020 TIME: 8:50 AM PAGER/CONTACT #: [facility] SURGICAL PATHOLOGYon 021 CASE REPORT Normal [facility] Comment on above: Order Comment: Speci men Type: TISSUE SPECIMEN Result Comment: Surg ical Pathology Report Case: [id number] Authorizing Provider: Eric Butt Collected: 09/03/2020 08:30 AM Ordering Location: [facility] Received: 09/06/2020 09:29 AM Pathologist: Rose Urena MD Specimen: ENDOMETRIUM CURETTINGS, UTERINE MASS AND EMC Performed By: #### S #### [facility] CLIA [id number] [address] [place] [address] CLINICAL HISTORY POST-MENOPAUSAL BLEEDING. ATYPICAL SQUAMOUS CELL CHANGES CERVIX OF UNDETERMINED SIGNIFICANCE FAVOR DYSPLASIA. Normal [facility] Comment on above: Order Comment: Speci men Type: TISSUE SPECIMEN Performed By: #### S #### [facility] CLIA [id number] [address] [place] [address] DIAGNOSIS COMMENT Normal [facility] Comment on above: Order Comment: Speci men Type: TISSUE SPECIMEN Result Comment: A p5 3 immunostain shows wild-type staining. MSI testing will be performed and separately reported. This case was reviewed at the [facility] Gynecologic Pathology Consensus Conference on 09/09/2020 and the above diagnosis reflects the consensus opinion of those present. Laboratory Developed Test (LDT) Disclaimer: Performance characteristics of immunohistochemical, immunofluorescent and chromogenic in-situ hybridization tests have been determined by the performing laboratory within [facility]???s [facility] ([facility], [facility], or [facility]) in a manner consistent with CLIA requirements. One or more of these tests have not been cleared or approved by the FDA. [facility] is regulated under CLIA as qualified to perform high-complexity testing. These tests are used for clinical purposes. They should not be regarded as investigational or for research. Positive and negative controls stain appropriately. Performed By: #### S #### [facility] CLIA [id number] [address] [place] [address] FINAL DIAGNOSIS Normal [facility] Comment on above: Order Comment: Speci men Type: TISSUE SPECIMEN Result Comment: A. E ndometrium, curettage Endometrial adenocarcinoma, endometrioid type FIGO grade 2. -The tumor, in part, involves an adenomyoma. See comment. Performed By: #### S #### [facility] CLIA [id number] [address] [place] [address] FINAL PERFORMING LAB Normal [facility] Comment on above: Order Comment: Speci men Type: TISSUE SPECIMEN Result Comment: Diag nostic interpretation performed at [facility], [address] [place] [address] CLIA# [id number] Engineering Lab Technician: Stanford Peña M.D. Performed By: #### S #### [facility] CLIA [id number] [address] [place] [address] GROSS DESCRIPTION Normal [facility] Comment on above: Order Comment: Speci men Type: TISSUE SPECIMEN Result Comment: A. E NDOMETRIUM CURETTINGS. Received in formalin labeled uterine mass and EMC are multiple white fragments of tissue admixed with red-brown hemorrhagic material aggregating to 5.1 x 4.1 x 1.2 cm. The specimens are totally submitted in formalin in five cassettes. KVB/kls Gross examination performed at [facility], [address] [place] [address] CLIA# [id number] Performed By: #### S #### [facility] CLIA [id number] [address] [place] [address] PROGRESSon 09-02-2020 PROGRESS HNO ID: [id number] Author: Laura Brown) Anh Service: Anesthesiology Author Type: Nurse Practitioner Type: Progress Notes Filed: 09/02/2020 10:16 AM Note Text: Spoke with Dr. Salas about the patient. Mild , echo from care everywhere 2017 EF 70%, poorly controlled DM. He reviewed the chart. Patient did have bariatric surgery with general anesthesia 2 years ago and did well. Ok to proceed with planned procedure on 09/03/20. Normal [facility] Bas Metab 2000 Pnl SerPlon 0 09-01-2020 Anion gap [Moles/Vol] 9 mmol/L Normal 9-18 [facility] Comment on above: Order Comment: Speci men Type: BLOOD SPECIMEN Performed By: #### 2 4321-2 ####[facility] [id number] [place] [address] Calcium [Mass/Vol] 9.0 mg/dL Normal 8.5-10.2 [facility] Comment on above: Order Comment: Speci men Type: BLOOD SPECIMEN Performed By: #### 2 4321-2 ####[facility] LABORATORYCLIA [id number] [place] [address] Chloride [Moles/Vol] 106 mmol/L High 97-105 [facility] Comment on above: Order Comment: Speci men Type: BLOOD SPECIMEN Performed By: #### 2 4321-2 ####[facility] LABORATORYCLIA [id number] [place] [address] CO2 [Moles/Vol] 23 mmol/L Normal 22-30 [facility] Comment on above: Order Comment: Speci men Type: BLOOD SPECIMEN Performed By: #### 2 4321-2 ####[facility] LABORATORYCLIA [id number] [place] [address] Creatinine [Mass/Vol] 0.70 mg/dL Normal 0.58-0.96 [facility] Comment on above: Order Comment: Speci men Type: BLOOD SPECIMEN Performed By: #### 2 4321-2 ####[facility] LABORATORYCLIA [id number] [place] [address] GFR/1.73 sq M.predicted MDRD (S/P/Bld) [Vol rate/Area] mL/min/{1.73_m2} Normal [facility] Comment on above: Order Comment: Speci men Type: BLOOD SPECIMEN Result Comment: >60 eGFR (Estimated GFR) Units of measure: mL/min/1.73 meters squared eGFR is derived from the reexpressed MDRD Study equation using the following parameters: serum creatinine, age, gender and race. The creatinine assay has been calibrated to be traceable to IDMS. An eGFR <60 mL/min/1.73m2 for >3 months is consistent with chronic kidney disease. Refer to KDOQI guidelines for clinical interpretation. In patients with unstable renal function, e.g. those with acute kidney injury, the eGFR may not accurately reflect actual GFR. Performed By: #### 2 4321-2 ####[facility] LABORATORYCLIA [id number] [place] [address] Glucose [Mass/Vol] 328 mg/dL High 74-99 [facility] Comment on above: Order Comment: Speci men Type: BLOOD SPECIMEN Result Comment: The [place] Diabetes Association (ADA) provides guidance for cutoff values for fasting glucose and random glucose. The ADA defines fasting as no caloric intake for at least 8 hours. Fasting plasma glucose results between 100 to 125 mg/dL indicate increased risk for diabetes (prediabetes). Fasting plasma glucose results greater than or equal to 126 mg/dL meet the criteria for diagnosis of diabetes. In the absence of unequivocal hyperglycemia, results should be confirmed by repeat testing. In a patient with classic symptoms of hyperglycemia or hyperglycemic crisis, random plasma glucose results greater than or equal to 200 mg/dL meet the criteria for diagnosis of diabetes. Reference: Standards of Medical Care in Diabetes 2016, [place] Diabetes Association. Diabetes Care. 2016.39(Suppl 1). Performed By: #### 2 4321-2 ####[facility] LABORATORYCLIA [id number] [place] [address] Potassium [Moles/Vol] 4.4 mmol/L Normal 3.7-5.1 [facility] Comment on above: Order Comment: Speci men Type: BLOOD SPECIMEN Performed By: #### 2 4321-2 ####[facility] LABORATORYCLIA [id number] [place] [address] Sodium [Moles/Vol] 138 mmol/L Normal 136-144 [facility] Comment on above: Order Comment: Speci men Type: BLOOD SPECIMEN Performed By: #### 2 4321-2 ####[facility] LABORATORYCLIA [id number] [place] [address] Urea nitrogen [Mass/Vol] 13 mg/dL Normal 7-21 [facility] Comment on above: Order Comment: Speci men Type: BLOOD SPECIMEN Performed By: #### 2 4321-2 ####[facility] LABORATORYCLIA [id number] [place] [address] CBC Pnl Bld Autoon Erythrocyte distribution width (RBC) [Ratio] 12.8 % Normal 11.5-15.0 [facility] Comment on above: Order Comment: Speci men Type: BLOOD SPECIMEN Performed By: #### 5 8410-2 ####[facility] LABORATORYCLIA [id number] [place] [address] Hematocrit (Bld) [Volume fraction] 40.2 % Normal 36.0-46.0 [facility] Comment on above: Order Comment: Speci men Type: BLOOD SPECIMEN Performed By: #### 5 8410-2 ####[facility] LABORATORYCLIA [id number] [place] [address] Hemoglobin (Bld) [Mass/Vol] 13.2 g/dL Normal 11.5-15.5 [facility] Comment on above: Order Comment: Speci men Type: BLOOD SPECIMEN Performed By: #### 5 8410-2 ####[facility] LABORATORYCLIA [id number] [place] [address] MCH (RBC) [Entitic mass] 29.7 pg Normal 26.0-34.0 [facility] Comment on above: Order Comment: Speci men Type: BLOOD SPECIMEN Performed By: #### 5 8410-2 ####[facility] LABORATORYCLIA [id number] [place] [address] MCHC (RBC) [Mass/Vol] 32.8 g/dL Normal 30.5-36.0 [facility] Comment on above: Order Comment: Speci men Type: BLOOD SPECIMEN Performed By: #### 5 8410-2 ####[facility] LABORATORYCLIA [id number] [place] [address] MCV (RBC) [Entitic vol] 90.3 fL Normal 80.0-100.0 [facility] Comment on above: Order Comment: Speci men Type: BLOOD SPECIMEN Performed By: #### 5 8410-2 ####[facility] LABORATORYCLIA [id number] [place] [address] Nucleated RBC (Bld) [#/Vol] 10*3/uL Normal <0.01 [facility] Comment on above: Order Comment: Speci men Type: BLOOD SPECIMEN Performed By: #### 5 8410-2 ####[facility] LABORATORYCLIA [id number] [place] [address] Platelet mean volume (Bld) [Entitic vol] 13.3 fL High 9.0-12.7 [facility] Comment on above: Order Comment: Speci men Type: BLOOD SPECIMEN Performed By: #### 5 8410-2 ####[facility] LABORATORYCLIA [id number] [place] [address] Platelets (Bld) [#/Vol] 194 10*3/uL Normal 150-400 [facility] Comment on above: Order Comment: Speci men Type: BLOOD SPECIMEN Performed By: #### 5 8410-2 ####[facility] LABORATORYCLIA [id number] [place] [address] RBC (Bld) [#/Vol] 4.45 10*6/uL Normal 3.90-5.20 [facility] Comment on above: Order Comment: Speci men Type: BLOOD SPECIMEN Performed By: #### 5 8410-2 ####[facility] LABORATORYCLIA [id number] [place] [address] WBC (Bld) [#/Vol] 8.33 10*3/uL Normal 3.70-11.00 [facility] Comment on above: Order Comment: Speci men Type: BLOOD SPECIMEN Performed By: #### 5 8410-2 ####[facility] LABORATORYCLIA [id number] [place] [address] HGB A1Con 09-01-2020 Average glucose Estimated from glycated hemoglobin mass conc (Bld) 246 mg/dL Normal [facility] Comment on above: Order Comment: Speci men Type: BLOOD SPECIMEN Result Comment: eAG: (Estimated average glucose) is a calculated value from HgbA1c and is contracts representative of the average blood glucose level in the last 2-3 month period. Performed By: #### H BA1C #### [facility] CLIA [id number] [address] [place] [address] HbA1c (Bld) [Mass fraction] 10.2 % High 4.3-5.6 [facility] Comment on above: Order Comment: Speci men Type: BLOOD SPECIMEN Result Comment: [place] Diabetes Association guidelines indicate that patients with HgbA1c in the range 5.7-6.4% are at increased risk for development of diabetes, and intervention by lifestyle modification may be beneficial. HgbA1c greater or equal to 6.5% is considered diagnostic of diabetes. Performed By: #### H BA1C #### [facility] CLIA [id number] [address] [place] [id number] HISTORY PHYSICALon 1 HISTORY PHYSICAL HNO ID: [id number] Author: Laura Kamara Service: ? Author Type: Nurse Practitioner Type: HANDP Filed: 09/01/2020 2:29 PM Note Text: HISTORY AND PHYSICAL EXAMINATION SERVICE DATE: 09/01/2020 SERVICE TIME: 8:58 AM PRIMARY CARE PHYSICIAN: Irvin Rizzo MD REASON FOR VISIT: Dameon Potter is a 65 year old female who is scheduled for Procedure(s): HYSTEROSCOPY, DANDC WITH TRUCLEAR (N/A) at the request of Dr. 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 States just after [place] in 2019 she had a week of vaginal bleeding- states it was like a period. She went through menopause at age 51. She does have some vaginal burning. She recently completed antibiotic for a UTI and 2 weeks of diflucan for possible yeast infection. She continues to have the burning and has used OTC monistat. 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 She had a pelvic US and was told there is still bleeding and was recommended to have a hysteroscopy. After discussion with the surgeon, the patient agrees to surgical intervention. REVIEW OF SYSTEMS: General: No weight loss, malaise or fevers. Neurological: No history of TIA's, stroke, SITE RELIABILITY ENGINEER tumor, impaired sensorium, hemiplegia, paraplegia or quadraplegia. No neurological symptoms or problems. Respiratory: +sleep apnea, uses CPAP Positive for: asthma. Cardiovascular: Positive for: hypertension and murmur/valvular heart disease Negative for: AICD/PPM, atrial fibrillation, CAD, CHF and DVT/PE GI: +intermittent diarrhea Positive for: GERD Negative for: nausea, pancreatitis and vomiting : Positive for: urinary incontinence Endocrine: Positive for: diabetes mellitus and hypothyroidism Hematology: No history of bleeding or clotting disorder. Pt is not taking anti-coagulation or platelet medications. No history of hematological symptoms or problems. Oncology: No history of CA metastasis, chemo within 30 days, or radiotherapy within 90 days. No history of oncological symptoms or problems. Psych: No history of psychiatric symptoms or problems. Musculoskeletal: Chronic lower extremity lymphedema Negative for: back pain Skin: Negative for lesions, rash and itching. PAST MEDICAL HISTORY Diagnosis Date - Asthma - Cataract - Diabetes (HCC) - GERD (gastroesophageal reflux disease) - High blood pressure - Hypothyroidism - Lymphedema - POAG (primary open-angle glaucoma) - Sleep apnea PAST SURGICAL HISTORY Procedure Laterality Date - GASTRIC BYPASS HX 01/29/2018 - PAST SURGICAL HISTORY OF 2000 Throidglossal duct cyst removed FAMILY HISTORY Problem Relation Age of Onset - Diabetes Father - Hypertension Father - Cataract Mother - Glaucoma Mother - Diabetes Mother - Hypertension Mother Social History Tobacco Use - Smoking status: Never Smoker - Smokeless tobacco: Never Used Substance Use Topics - Alcohol use: No - Drug use: No Prior to Admission medications as of 09/01/20 0849 Medication Sig Last Dose Taking insulin regular human (CONCENTRATED 500 UNIT/ML) Inject 20 Units subcutaneously twice daily. Taking Yes hydrocortisone valerate (WESTCORT) 0.2 % cream Apply to affected area twice daily. Taking Yes olmesartan (BENICAR) 40 mg tablet 1 tab(s) Taking Yes carvedilol (COREG) 6.25 mg tablet Take by mouth q 12 HR. Taking Yes brimonidine (ALPHAGAN P) 0.1 % drop Use 1 Drop in both eyes three times daily. Taking Yes timolol maleate (TIMOPTIC) 0.5 % ophthalmic solution Use 1 Drop in both eyes twice daily. Taking Yes Pedi Multivit No.7-Folic Acid (FLINTSTONES MULTI-VIT GUMMIES) 100 mcg chew Take 1 tablet by mouth. Taking Yes calcium carbonate (TUMS) 500 mg chew Take by mouth. Taking Yes atorvastatin (LIPITOR) 40 mg tablet Take 40 mg by mouth once daily. Taking Yes CPAP daily at bedtime. Taking Yes EPINEPHrine (EPIPEN) 0.3 mg/0.3 mL auto-injector Inject 0.3 mg intramuscularly as needed. Taking Yes hydroCHLOROthiazide (HYDRODIURIL, ESIDRIX) 25 mg tablet Take 25 mg by mouth once daily. Taking Yes levothyroxine (SYNTHROID) 175 mcg tablet Take 175 mcg by mouth once daily. Taking Yes MIRABEGRON ORAL Take 50 mg by mouth. Taking Yes CITALOPRAM HYDROBROMIDE (CITALOPRAM ORAL) Take 20 mg by mouth. Taking Yes ALBUTEROL 90MCG INHALER inhale 2 puffs q6h prn Taking Yes Lactobacillus acidophilus (PROBIOTIC ACIDOPHILUS ORAL) Take 1 capsule by mouth as needed. potassium chloride SR (MICRO-K) 10 mEq CR capsule Medication Comments documented by Linda MtzCoaVíctor Linn on 02/16/2020 at 1528. 02/16/20 The medications are managed by this patient by: PATIENT CARO WONG [employer]ERGIES Allergen Reactions - Lumigan [Bimatopros* Intolerance Blurred vision - Doxycycline Hyclate Rash, Hives, Itching - Erthromycin [Erythr* Hives - Levaquin [Levofloxa* Other: See Comments - Macrobid [Nitrofura* Itching - Macrolide Antibioti* Hives 1980 - Mold Spores Itching Mold allergy - Penicillins Rash childhood Objective PHYSICAL EXAM: General: alert and oriented and obese. Pertinent negatives noted - not distressed. Skin: normal color, no rash or lesions. HEENT: EOM intact and pupils equal round. Cardiovascular: Positive for murmur. Findings of a 4/6 grade systolic heart murmur, with a quality, and a location of: LRSB. Respiratory: normal breath sounds, no wheezes or crackles. Abdomen: bowel sounds present and soft. Pertinent negatives noted - not tender. Extremities: Positive for edema (chronic lymphedema). Neurological: normal cognition and motor skills. Gait normal. No weakness or sensory deficit. PAIN ASSESSMENT: VITALS: BP 180/92 Pulse 64 Temp 98.2 Resp 18 Ht 5' 6 (1.68m) Wt 280 lb (127.0kg) SpO2 96% BMI 45.21 kg/(m2). Diagnostic tests reviewed for today's visit: Lab Value Units Date High Low HB No results within date range. HCT No results within date range. WBC No results within date range. PLT No results within date range. NA No results within date range. K No results within date range. GLUC No results within date range. BUN No results within date range. CREAT No results within date range. PTSEC No results within date range. INR No results within date range. APTT No results within date range. ALT No results within date range. AST No results within date range. TBILI No results within date range. TSH No results within date range. Lab Value Units Date High Low HCGQT No results within date range. UHCG No results within date range. HCG, BODY* No results within date range. Lab Value Units Date High Low ABORHD No results within date range. ABSCREEN No results within date range. No results found for: HBA1C No results found for this or any previous visit (from the past 4464 hour(s)).No results found for this or any previous visit (from the past 4464 hour(s)). Assessment No problem-specific Assessment AND Plan notes found for this encounter. METS: Walk a block or two on level ground (2.75 METs) DASI Score: 2.75 Patient denies any chest pain or undue shortness of breath with the above physical activity uses walker or cane ASA Class: ANESTHESIA FINDINGS: Intubation History: No history of difficult intubation Significant Anesthesia Considerations: none Airway History: No history of difficult airway I - PHYSICAL EVALUATION AIRWAY Patient intubated: No. DENTAL Dental findings: broken tooth. Additional comments: crowns. II - ANESTHESIA PLAN Anesthetic Plan: general Prepared for Surgery: . No consults pending CONSULTS: Patient does not require consults for optimization at this time The Following Tests/Procedures Have Been Initiated: Orders Placed This Encounter CBC Standing Status: Future Number of Occurrences: 1 Standing Expiration Date: 09/01/2021 BASIC METABOLIC PNL Standing Status: Future Number of Occurrences: 1 Standing Expiration Date: 09/01/2021 HGB A1C Standing Status: Future Number of Occurrences: 1 Standing Expiration Date: 09/01/2021 insulin regular human (CONCENTRATED 500 UNIT/ML) Sig: Inject 20 Units subcutaneously twice daily. hydrocortisone valerate (WESTCORT) 0.2 % cream Sig: Apply to affected area twice daily. ECG COMPLETE W INTERPRETATION Standing Status: Future Number of Occurrences: 1 Standing Expiration Date: 09/01/2021 Planned Anesthetic: general Implantable Devices: None Patient has the following medical conditions which may affect susan-operative course Asthma - Medication(s) reviewed and discussed the importance of compliance. Advised to continue same medication. Diabetes - Uncontrolled. States she sees endocrinology. She is on regular insulin twice daily but states her glucose fluctuates from 100-400. States her recent hgbA1C was 10 by her PCP. HTN - states it always reads high at the doctor's office Heart murmur- found on exam, patient states this was noted a few years ago and she had testing done at [facility]- she states she had an Echo 2 years ago and was found to have aortic stenosis. Denies CP or SOB RED DOT: Patient becomes short of breath with activity- mets 2.75, history of aortic stenosis (I do not see echo in epic), says she saw cardiology with [facility] about 2 years ago, uncontrolled DM with hgbA1C 10.2. May want to review with anesthesia Assessment/Plan PLAN Planned Procedure: Procedure(s): HYSTEROSCOPY, DANDC WITH TRUCLEAR (N/A) The Following Tests/Procedures Have Been Initiated: CBC, BMP, HgbA1C ordered by EMPLOYMENT SPECIALIST Instructions Given to Patient: Instructions located in the after visit summary. Patient given verbal and written preop instructions and voices comprehension and compliance. SIGNATURE: Laura Kamara, MOTORCYCLE REPAIRER.SAMUEL PATIENT NAME: Dameon Potter DATE: September 01, 2020 TIME: 8:20 AM PAGER/CONTACT #: Joe [facility] PROGRESSon 09-01-2020 PROGRESS HNO ID: [id number] Author: Laura Kamara Service: Anesthesiology Author Type: Nurse Practitioner Type: Progress Notes Filed: 09/01/2020 2:26 PM Note Text: RED DOT: Patient becomes short of breath with activity- mets 2.75, history of aortic stenosis (I do not see echo in epic), says she saw cardiology with [facility] about 2 years ago, uncontrolled DM with hgbA1C 10.2. 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 Butt I have ordered a pre op covid test for your patient. Please review results and discuss with patient. Thank you, Beverly Hernandez APRN.CNP Allergies As of Date: 08/27/2020 Noted Allergy Reaction LUMIGAN (BIMATOPROST) 05/06/2018 5 - Intolerance Comments: Blurred vision DOXYCYCLINE HYCLATE 11/13/2016 2 - Rash 4 - Hives 9 - Itching ERTHROMYCIN (ERYTHROMYCIN) 05/05/2015 4 - Hives LEVAQUIN (LEVOFLOXACIN) 05/05/2015 14 - Other: See Comments MACROBID (NITROFURANTOIN MONOHYD/*05/05/2015 9 - Itching MACROLIDE ANTIBIOTICS 02/27/2004 4 - Hives Comments: 1980 MOLD SPORES 03/24/2015 9 - Itching Comments: Mold allergy PENICILLINS 02/27/2004 2 - Rash Comments: childhood Date Reviewed: 02/16/2020 Reviewed by: Bridget Lizarraga Jr. - Fully Assessed Reason for Visit: pre op covid [Other] Primary Visit Diagnosis:Post-menopa usal bleeding [N95.0] Order(s):PRE-PROCEDUR E AND PRE-OPERATIVE COVID [SQPOCOVD] Order #: [id number] FUTURE Prescriptions as of 08/27/2020 Sig: OLMESARTAN 40 MG TABLET 1 tab(s) CARVEDILOL 6.25 MG TABLET Take by mouth q 12 HR. BRIMONIDINE 0.1 % EYE DROPS Use 1 Drop in both eyes three* TIMOLOL MALEATE 0.5 % EYE JORDI* Use 1 Drop in both eyes twice* PEDIATRIC MULTIVITAMIN NO.7-F* Take 1 tablet by mouth. CALCIUM CARBONATE 200 MG CALC* Take by mouth. ATORVASTATIN 40 MG TABLET Take 40 mg by mouth once dre* CPAP daily at bedtime. EPINEPHRINE 0.3 MG/0.3 ML INJ* Inject 0.3 mg intramuscularly* FLUTICASONE PROPIONATE 50 MCG* Use 1 Ovando in the nose as ne* HYDROCHLOROTHIAZIDE 25 MG TAB* Take 25 mg by mouth once dre* OMEPRAZOLE 20 MG CAPSULE,JAX* Take 20 mg by mouth once dre* PROBIOTIC ACIDOPHILUS ORAL Take 1 capsule by mouth as ne* LEVOTHYROXINE 175 MCG TABLET Take 175 mcg by mouth once da* HYDROCORTISONE 1 % TOPICAL GEL Apply to affected area. POTASSIUM CHLORIDE ER 10 MEQ * COZAAR ORAL Take by mouth. FUROSEMIDE ORAL Take by mouth. HUMULIN R INJECTION by INJECTION(UNSPECIFIED PARE* MIRABEGRON ORAL Take by mouth. CITALOPRAM ORAL Take by mouth. ALBUTEROL 90 MCG/ACTUATION AE* inhale 2 puffs q6h prn Problem List As Of Date 08/27/2020 Noted Resolved ESOPHAGEAL REFLUX [K21.9] 04/07/2004 Open-angle glaucoma, moderate stage [H40.10X2] 05/05/2015 05/12/2019 Type 2 diabetes mellitus with mild nonprolifera*05/05/20 15 NS (nuclear sclerosis) [H25.10] 05/05/2015 05/24/2017 Cortical cataract of both eyes [H26.9] 05/05/2015 PSC (posterior subcapsular cataract), bilateral*05/05/2015 05/22/2017 Refractive error [H52.7] 05/05/2015 Primary open angle glaucoma of both eyes, mild *11/13/2016 Diabetes mellitus type 2, insulin dependent (HC*11/13/2016 05/12/2019 NS (nuclear sclerosis), unspecified laterality *05/21/2017 11/05/2018 Posterior subcapsular age-related cataract of l*05/22/2017 Nuclear sclerotic cataract, bilateral [H25.13] 05/24/2017 Dry eye syndrome of bilateral lacrimal glands [*11/04/2018 Encounter Status:Closed by BEVERLY HERNANDEZ CNP on 08/27/20 [facility] HOSPon 08-27-2020 HOSP Patient:Dameon Potter MRN: Height:5' 6(1.676 m) Weight:280 lb (127.007 kg) Outpatient Medications as of 09/03/20: insulin regular human (CONCENTRATED 500 UNIT/ML) hydrocortisone valerate (WESTCORT) 0.2 % cream olmesartan (BENICAR) 40 mg tablet carvedilol (COREG) 6.25 mg tablet brimonidine (ALPHAGAN P) 0.1 % drop timolol maleate (TIMOPTIC) 0.5 % ophthalmic solution Pedi Multivit No.7-Folic Acid (FLINTSTONES MULTI-VIT GUMMIES) 100 mcg chew atorvastatin (LIPITOR) 40 mg tablet CPAP EPINEPHrine (EPIPEN) 0.3 mg/0.3 mL auto-injector hydroCHLOROthiazide (HYDRODIURIL, ESIDRIX) 25 mg tablet levothyroxine (SYNTHROID) 175 mcg tablet potassium chloride SR (MICRO-K) 10 mEq CR capsule MIRABEGRON ORAL CITALOPRAM HYDROBROMIDE (CITALOPRAM ORAL) ALBUTEROL 90MCG INHALER Admission/Clinic Administered Medications as of 09/03/20: lidocaine 10 mg/mL (1 %) 1-2 mg injection (XYLOCAINE) lactated ringers infusion Problem List: Esophageal reflux [K21.9] Type 2 diabetes mellitus with mild nonproliferative diabetic retinopathy without macular edema (HCC) [E11.3299] Cortical cataract of both eyes [H26.9] Refractive error [H52.7] Primary open angle glaucoma of both eyes, mild stage [H40.1131] Posterior subcapsular age-related cataract of left eye [H25.042] Nuclear sclerotic cataract, bilateral [H25.13] Dry eye syndrome of bilateral lacrimal glands [H04.123] H/O gastric bypass [Z98.84] Obesity, Class III, BMI >= 40 [E66.01] PMB (postmenopausal bleeding) [N95.0] Allergies: Lumigan [Bimatoprost] Doxycycline Hyclate Erthromycin [Erythromycin] Levaquin [Levofloxacin] Macrobid [Nitrofurantoin Monohyd/M-Cryst] Macrolide Antibiotics Mold Spores Penicillins Date Verified: 09/03/20 Lab Values Lab Value Units Date High Low POTA* 4.4 mmol/L 09/01/2020 5.1 3.7 ROWAN* 40.2 % 09/01/2020 46.0 36.0 Progress Notes (AK PROVIDER ADULT): Beverly Hernandez APRN.CNP 08/27/2020 2:[address] Butt I have ordered a pre op covid test for your patient. Please review results and discuss with patient. Thank you, Beverly Hernandez APRN.CNP Progress Notes (): Laura Kamara APRN.CNP 09/01/2020 2:29 PM Signed HISTORY AND PHYSICAL EXAMINATION SERVICE DATE: 09/01/2020 SERVICE TIME: 8:58 AM PRIMARY CARE PHYSICIAN: Irvin Rizzo MD REASON FOR VISIT: Dameon Potter is a 65 year old female who is scheduled for Procedure(s): HYSTEROSCOPY, DANDC WITH TRUCLEAR (N/A) at the request of Dr. 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 States just after [place] in 2019 she had a week of vaginal bleeding- states it was like a period. She went through menopause at age 51. She does have some vaginal burning. She recently completed antibiotic for a UTI and 2 weeks of diflucan for possible yeast infection. She continues to have the burning and has used OTC monistat. 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 She had a pelvic US and was told there is still bleeding and was recommended to have a hysteroscopy. After discussion with the surgeon, the patient agrees to surgical intervention. REVIEW OF SYSTEMS: General: No weight loss, malaise or fevers. Neurological: No history of TIA's, stroke, SITE RELIABILITY ENGINEER tumor, impaired sensorium, hemiplegia, paraplegia or quadraplegia. No neurological symptoms or problems. Respiratory: +sleep apnea, uses CPAP Positive for: asthma. Cardiovascular: Positive for: hypertension and murmur/valvular heart disease Negative for: AICD/PPM, atrial fibrillation, CAD, CHF and DVT/PE GI: +intermittent diarrhea Positive for: GERD Negative for: nausea, pancreatitis and vomiting : Positive for: urinary incontinence Endocrine: Positive for: diabetes mellitus and hypothyroidism Hematology: No history of bleeding or clotting disorder. Pt is not taking anti-coagulation or platelet medications. No history of hematological symptoms or problems. Oncology: No history of CA metastasis, chemo within 30 days, or radiotherapy within 90 days. No history of oncological symptoms or problems. Psych: No history of psychiatric symptoms or problems. Musculoskeletal: Chronic lower extremity lymphedema Negative for: back pain Skin: Negative for lesions, rash and itching. PAST MEDICAL HISTORY Diagnosis Date - Asthma - Cataract - Diabetes (HCC) - GERD (gastroesophageal reflux disease) - High blood pressure - Hypothyroidism - Lymphedema - POAG (primary open-angle glaucoma) - Sleep apnea PAST SURGICAL HISTORY Procedure Laterality Date - GASTRIC BYPASS HX 01/29/2018 - PAST SURGICAL HISTORY OF 2000 Throidglossal duct cyst removed FAMILY HISTORY Problem Relation Age of Onset - Diabetes Father - Hypertension Father - Cataract Mother - Glaucoma Mother - Diabetes Mother - Hypertension Mother Social History Tobacco Use - Smoking status: Never Smoker - Smokeless tobacco: Never Used Substance Use Topics - Alcohol use: No - Drug use: No Prior to Admission medications as of 09/01/20 0849 Medication Sig Last Dose Taking insulin regular human (CONCENTRATED 500 UNIT/ML) Inject 20 Units subcutaneously twice daily. Taking Yes hydrocortisone valerate (WESTCORT) 0.2 % cream Apply to affected area twice daily. Taking Yes olmesartan (BENICAR) 40 mg tablet 1 tab(s) Taking Yes carvedilol (COREG) 6.25 mg tablet Take by mouth q 12 HR. Taking Yes brimonidine (ALPHAGAN P) 0.1 % drop Use 1 Drop in both eyes three times daily. Taking Yes timolol maleate (TIMOPTIC) 0.5 % ophthalmic solution Use 1 Drop in both eyes twice daily. Taking Yes Pedi Multivit No.7-Folic Acid (FLINTSTONES MULTI-VIT GUMMIES) 100 mcg chew Take 1 tablet by mouth. Taking Yes calcium carbonate (TUMS) 500 mg chew Take by mouth. Taking Yes atorvastatin (LIPITOR) 40 mg tablet Take 40 mg by mouth once daily. Taking Yes CPAP daily at bedtime. Taking Yes EPINEPHrine (EPIPEN) 0.3 mg/0.3 mL auto-injector Inject 0.3 mg intramuscularly as needed. Taking Yes hydroCHLOROthiazide (HYDRODIURIL, ESIDRIX) 25 mg tablet Take 25 mg by mouth once daily. Taking Yes levothyroxine (SYNTHROID) 175 mcg tablet Take 175 mcg by mouth once daily. Taking Yes MIRABEGRON ORAL Take 50 mg by mouth. Taking Yes CITALOPRAM HYDROBROMIDE (CITALOPRAM ORAL) Take 20 mg by mouth. Taking Yes ALBUTEROL 90MCG INHALER inhale 2 puffs q6h prn Taking Yes Lactobacillus acidophilus (PROBIOTIC ACIDOPHILUS ORAL) Take 1 capsule by mouth as needed. potassium chloride SR (MICRO-K) 10 mEq CR capsule Medication Comments documented by Linda MtzCoaVíctor Linn on 02/16/2020 at 1528. 02/16/20 The medications are managed by this patient by: PATIENT CARO WONG ALLERGIES Allergen Reactions - Lumigan [Bimatopros* Intolerance Blurred vision - Doxycycline Hyclate Rash, Hives, Itching - Erthromycin [Erythr* Hives - Levaquin [Levofloxa* Other: See Comments - Macrobid [Nitrofura* Itching - Macrolide Antibioti* Hives 1980 - Mold Spores Itching Mold allergy - Penicillins Rash childhood Objective PHYSICAL EXAM: General: alert and oriented and obese. Pertinent negatives noted - not distressed. Skin: normal color, no rash or lesions. HEENT: EOM intact and pupils equal round. Cardiovascular: Positive for murmur. Findings of a 4/6 grade systolic heart murmur, with a quality, and a location of: LRSB. Respiratory: normal breath sounds, no wheezes or crackles. Abdomen: bowel sounds present and soft. Pertinent negatives noted - not tender. Extremities: Positive for edema (chronic lymphedema). Neurological: normal cognition and motor skills. Gait normal. No weakness or sensory deficit. PAIN ASSESSMENT: VITALS: BP 180/92 Pulse 64 Temp 98.2 Resp 18 Ht 5' 6 (1.68m) Wt 280 lb (127.0kg) SpO2 96% BMI 45.21 kg/(m2). Diagnostic tests reviewed for today's visit: Lab Value Units Date High Low HB No results within date range. HCT No results within date range. WBC No results within date range. PLT No results within date range. NA No results within date range. K No results within date range. GLUC No results within date range. BUN No results within date range. CREAT No results within date range. PTSEC No results within date range. INR No results within date range. APTT No results within date range. ALT No results within date range. AST No results within date range. TBILI No results within date range. TSH No results within date range. Lab Value Units Date High Low HCGQT No results within date range. UHCG No results within date range. HCG, BODY* No results within date range. Lab Value Units Date High Low ABORHD No results within date range. ABSCREEN No results within date range. No results found for: HBA1C No results found for this or any previous visit (from the past 4464 hour(s)).No results found for this or any previous visit (from the past 4464 hour(s)). Assessment No problem-specific Assessment AND Plan notes found for this encounter. METS: Walk a block or two on level ground (2.75 METs) DASI Score: 2.75 Patient denies any chest pain or undue shortness of breath with the above physical activity uses walker or cane ASA Class: ANESTHESIA FINDINGS: Intubation History: No history of difficult intubation Significant Anesthesia Considerations: none Airway History: No history of difficult airway I - PHYSICAL EVALUATION AIRWAY Patient intubated: No. DENTAL Dental findings: broken tooth. Additional comments: crowns. II - ANESTHESIA PLAN Anesthetic Plan: general Prepared for Surgery: . No consults pending CONSULTS: Patient does not require consults for optimization at this time The Following Tests/Procedures Have Been Initiated: Orders Placed This Encounter CBC Standing Status: Future Number of Occurrences: 1 Standing Expiration Date: 09/01/2021 BASIC METABOLIC PNL Standing Status: Future Number of Occurrences: 1 Standing Expiration Date: 09/01/2021 HGB A1C Standing Status: Future Number of Occurrences: 1 Standing Expiration Date: 09/01/2021 insulin regular human (CONCENTRATED 500 UNIT/ML) Sig: Inject 20 Units subcutaneously twice daily. hydrocortisone valerate (WESTCORT) 0.2 % cream Sig: Apply to affected area twice daily. ECG COMPLETE W INTERPRETATION Standing Status: Future Number of Occurrences: 1 Standing Expiration Date: 09/01/2021 Planned Anesthetic: general Implantable Devices: None Patient has the following medical conditions which may affect susan-operative course Asthma - Medication(s) reviewed and discussed the importance of compliance. Advised to continue same medication. Diabetes - Uncontrolled. States she sees endocrinology. She is on regular insulin twice daily but states her glucose fluctuates from 100-400. States her recent hgbA1C was 10 by her PCP. HTN - states it always reads high at the doctor's office Heart murmur- found on exam, patient states this was noted a few years ago and she had testing done at [facility]- she states she had an Echo 2 years ago and was found to have aortic stenosis. Denies CP or SOB RED DOT: Patient becomes short of breath with activity- mets 2.75, history of aortic stenosis (I do not see echo in [facility]), says she saw cardiology with [facility] about 2 years ago, uncontrolled DM with hgbA1C 10.2. May want to review with anesthesia Assessment/Plan PLAN Planned Procedure: Procedure(s): HYSTEROSCOPY, DANDC WITH TRUCLEAR (N/A) The Following Tests/Procedures Have Been Initiated: CBC, BMP, HgbA1C ordered by EMPLOYMENT SPECIALIST Instructions Given to Patient: Instructions located in the after visit summary. Patient given verbal and written preop instructions and voices comprehension and compliance. SIGNATURE: Laura Kamara APRN.CNP PATIENT NAME: Dameon Potter DATE: September 01, 2020 TIME: 8:20 AM PAGER/CONTACT #: Laura Kamara APRN.CNP 09/01/2020 2:26 PM Signed RED DOT: Patient becomes short of breath with activity- mets 2.75, history of aortic stenosis (I do not see echo in [facility]), says she saw cardiology with [facility] about 2 years ago, uncontrolled DM with hgbA1C 10.2. May want to review with anesthesia Laura Kamara APRN.CNP 09/02/2020 10:16 AM Signed Spoke with Dr. Salas about the patient. Mild , [facility] 2017 EF 70%, poorly controlled DM. He reviewed the chart. Patient did have bariatric surgery with general anesthesia 2 years ago and did well. Ok to proceed with planned procedure on 09/03/20. Eric Butt MD 09/03/2020 7:56 AM Signed Reviewed differential diagnosis, us findings, pap. Reviewed surgery, risks, recovery. Questions answered. Consent from office. Eric Butt MD September 03, 2020 7:56 AM Normal [facility] EKG 12 [place] 12-28-2017 [place], [facility] Incoming Cardiology Results From [facility] - 12/28/2017 2:19 PM EDT [facility] Test Date: 2017-12-27 Pat Name: Dameon Potter Department: 04 Room: Gender: F Nitroglycerin Separator Operator: DAYAMIKristen WHITEB: 1955 Requested By: PAKO POOLE Order Number: [id number] Reading MD: Michael Martinez Measurements Intervals [place] Rate: 74 P: 19 OR: 168 QRS: -27 QRSD: 102 T: 71 QT: 392 QTc: 435 Interpretive Statements SINUS RHYTHM Probable LEFT VENTRICULAR HYPERTROPHY Electronically Signed On 12-28-2017 14:18:17 EDT by Michael Martinez [employer] Work Phone: EKG 12 LeadOrdered By: Bridget Golden on 12-28-2017 [place], [facility]coming [facility] 12/28/2017 2:19 PM EDT [facility] Test Date: 2017-12-27 Pat Name: Dameon Potter Department: 04 Room: Gender: F Nitroglycerin Separator Operator: SARAH : 1955 Requested By: PAKO POOLE Order Number: [id number] Reading MD: Michael Martinez Measurements Intervals [place] Rate: 74 P: 19 OR: 168 QRS: -27 QRSD: 102 T: 71 QT: 392 QTc: 435 Interpretive Statements SINUS RHYTHM Probable LEFT VENTRICULAR HYPERTROPHY Electronically Signed On 12-28-2017 14:18:17 EDT by Michael XAVIER Work Phone: [facility] Results From [facility] - 12/28/2017 2:19 PM EDT [facility] Test Date: 2017-12-27 Pat Name: Dameon Potter Department: 04 Room: Gender: F Nitroglycerin Separator Operator: SARAH WHITEB: 1955 Requested By: PAKO POOLE Order Number: [id number] Reading MD: Michael Martinez Measurements Intervals [place] Rate: 74 P: 19 OR: 168 QRS: -27 QRSD: 102 T: 71 QT: 392 QTc: 435 Interpretive Statements SINUS RHYTHM Probable LEFT VENTRICULAR HYPERTROPHY Electronically Signed On 12-28-2017 14:18:17 EDT by Michael Martinez [employer] Work Phone: No Panel InformationOrdered By: Bridget Golden on 12-28-2017 [facility] Test Date: 2017-12-27 Pat Name: Dameon Potter Department: 04 Room: Gender: F Nitroglycerin Separator Operator: SARAH WHITEB: 1955 Requested By: PAKO POOLE Order Number: [id number] Reading MD: Michael Martinez Measurements Intervals [place] Rate: 74 P: 19 OR: 168 QRS: -27 QRSD: 102 T: 71 QT: 392 QTc: 435 Interpretive Statements SINUS RHYTHM Probable LEFT VENTRICULAR HYPERTROPHY Electronically Signed On 12-28-2017 14:18:17 EDT by Michael Martinez [employer] Work Phone: [employer] Phone: No Panel Informationon 12-28 Result, Unknown Provider - 12/28/2017 [facility] Test Date: 2017-12-27 Pat Name: Dameon Potter Department: 04 Room: Gender: F Nitroglycerin Separator Operator: SARAH WHITEB: 1955 Requested By: PAKO POOLE Order Number: [id number] Reading MD: Michael Martinez Measurements Intervals [place] Rate: 74 P: 19 OR: 168 QRS: -27 QRSD: 102 T: 71 QT: 392 QTc: 435 Interpretive Statements SINUS RHYTHM Probable LEFT VENTRICULAR HYPERTROPHY Electronically Signed On 12-28-2017 14:18:17 EDT by Michael Martinez [employer] Work Phone: Otheron 12-28-2017 [facility] Test Date: 2017-12-27 Pat Name: Dameon Potter Department: 04 Room: Gender: F Nitroglycerin Separator Operator: SARAH WHITEB: 1955 Requested By: PAKO POOLE Order Number: [id number] Reading MD: Michael Martinez Measurements Intervals [place] Rate: 74 P: 19 OR: 168 QRS: -27 QRSD: 102 T: 71 QT: 392 QTc: 435 Interpretive Statements SINUS RHYTHM Probable LEFT VENTRICULAR HYPERTROPHY Electronically Signed On 12-28-2017 14:18:17 EDT by [facility] Incoming Cardiology Results From [facility] - 12/28/2017 2:19 PM EDT [facility] Test Date: 2017-12-27 Pat Name: Dameon Potter Department: 04 Room: Gender: F Nitroglycerin Separator Operator: SARAH WHITEB: 1955 Requested By: PAKO POOLE Order Number: [id number] Reading MD: Michael Martinez Measurements Intervals [place] Rate: 74 P: 19 OR: 168 QRS: -27 QRSD: 102 T: 71 QT: 392 QTc: 435 Interpretive Statements SINUS RHYTHM Probable LEFT VENTRICULAR HYPERTROPHY Electronically Signed On 12-28-2017 14:18:17 EDT by [facility] Test Date: 2017-12-27 Pat Name: Dameon Potter Department: 04 Room: Gender: F Nitroglycerin Separator Operator: SARAH WHITEB: 1955 Requested By: PAKO POOLE Order Number: [id number] Reading MD: Michael Martinez Measurements Intervals [place] Rate: 74 P: 19 OR: 168 QRS: -27 QRSD: 102 T: 71 QT: 392 QTc: 435 Interpretive Statements SINUS RHYTHM Probable LEFT VENTRICULAR HYPERTROPHY Electronically Signed On 12-28-2017 14:18:17 EDT by [facility] No Panel Information [facility] Vital Signs Date Time Vital Sign Value Performing Clinician Facility 05-19-2025 [id number] Body temperature 98.1 [degF] Nettie Rhodes DO Work Phone: [facility] 05-19-2025 08:31-0400 Diastolic blood pressure 84 mm[Hg] Nettie Meagan DO Work Phone: [facility] 05-19-2025 08:31-0400 Heart rate 63 /min Nettie Meagan DO Work Phone: [facility] 05-19-2025 08:31-0400 Respiratory rate 16 /min Nettie Meagan DO Work Phone: [facility] 05-19-2025 08:31-0400 SaO2% (BldA) [Mass fraction] 97 % Nettiejose david Rhodes DO Work Phone: [facility] 05-19-2025 08:31-0400 Systolic blood pressure 161 mm[Hg] Nettie Meagan DO Work Phone: [facility] 05-14-2025 01:20-0400 Body mass index (BMI) [Ratio] 33.27 kg/m2 Nettie Meagan DO Work Phone: [facility] 05-14-2025 01:20-0400 Body weight 93.5 kg Nettie Meagan DO Work Phone: [facility] 05-13-2025 13:19-0400 Body height 167.6 cm Nettie Meagan DO Work Phone: [facility] 12-22-2024 12:30-0400 Diastolic blood pressure 109 mm[Hg] Cuauhtemoc Stubbs MD Work Phone: [facility] 12-22-2024 12:30-0400 Heart rate 53 /min Cuauhtemoc Stubbs MD Work Phone: [facility] 12-22-2024 12:30-0400 SaO2% (BldA) [Mass fraction] 98 % Cuauhtemoc Stubbs MD Work Phone: [facility] 12-22-2024 12:30-0400 Systolic blood pressure 146 mm[Hg] Cuauhtemoc Stubbs MD Work Phone: [facility] 12-22-2024 11:45-0400 Respiratory rate 16 /min Cuauhtemoc Stubbs MD Work Phone: [facility] 12-22-2024 08:19-0400 Body height 167.6 cm Cuauhtemoc Stubbs MD Work Phone: [facility] 12-22-2024 08:19-0400 Body mass index (BMI) [Ratio] 34.86 kg/m2 Cuauhtemoc Stubbs MD Work Phone: [facility] 12-22-2024 08:19-0400 Body temperature 98.01 [degF] Cuauhtemoc Stubbs MD Work Phone: [facility] 12-22-2024 08:19-0400 Body weight 97.98 kg Cuauhtemoc Stubbs MD Work Phone: [facility] 12-08-2024 13:30-0400 Diastolic blood pressure 96 mm[Hg] Cuauhtemoc Stubbs MD Work Phone: [facility] 12-08-2024 13:30-0400 Systolic blood pressure 172 mm[Hg] Cuauhtemoc Stubbs MD Work Phone: [facility] 12-08-2024 12:50-0400 Body height 167.6 cm Cuauhtemoc Stubbs MD Work Phone: [facility] 12-08-2024 12:50-0400 Body mass index (BMI) [Ratio] 35.69 kg/m2 Cuauhtemoc Stubbs MD Work Phone: [facility] 12-08-2024 12:50-0400 Body weight 100.25 kg Cuauhtemoc Stubbs MD Work Phone: [facility] 12-08-2024 12:50-0400 Heart rate 72 /min Cuauhtemoc Stubbs MD Work Phone: [facility] 12-08-2024 12:50-0400 SaO2% (BldA) [Mass fraction] 98 % Cuauhtemoc Stubbs MD Work Phone: [facility] 11-25-2024 10:44-0400 Body mass index (BMI) [Ratio] 35.83 kg/m2 Araseli Butts CNP Work Phone: [facility] 11-25-2024 10:44-0400 Body temperature 97.81 [degF] Araseli Can 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 Work Phone: [facility] 11-25-2024 10:44-0400 Body weight 100.7 kg Araseli Can 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 Work Phone: [facility] 11-25-2024 10:44-0400 Diastolic blood pressure 73 mm[Hg] Araseli Can 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 Work Phone: [facility] 11-25-2024 10:44-0400 Heart rate 49 /min Araseli Can 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 Work Phone: [facility] 11-25-2024 10:44-0400 Respiratory rate 16 /min Araseli Can 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 Work Phone: [facility] 11-25-2024 10:44-0400 SaO2% (BldA) [Mass fraction] 98 % Araseli Can 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 Work Phone: [facility] 11-25-2024 10:44-0400 Systolic blood pressure 144 mm[Hg] Araseli Cna 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 Work Phone: [facility] 11-18-2024 09:37-0400 Body mass index (BMI) [Ratio] 35.35 kg/m2 Araseli Can 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 Work Phone: [facility] 11-18-2024 09:37-0400 Body temperature 97.2 [degF] Araseli Can 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 Work Phone: [facility] 11-18-2024 09:37-0400 Body weight 99.34 kg Araseli Can 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 Work Phone: [facility] 11-18-2024 09:37-0400 Diastolic blood pressure 68 mm[Hg] Araseli Can 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 Work Phone: [facility] 11-18-2024 09:37-0400 Heart rate 72 /min Araseli Can 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 Work Phone: [facility] 11-18-2024 09:37-0400 Respiratory rate 18 /min Araseli Can 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 Work Phone: [facility] 11-18-2024 09:37-0400 SaO2% (BldA) [Mass fraction] 96 % Araseli Can 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 Work Phone: [facility] 11-18-2024 09:37-0400 Systolic blood pressure 130 mm[Hg] Araseli Can 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 Work Phone: [facility] 11-12-2024 08:48-0400 Body mass index (BMI) [Ratio] 33.93 kg/m2 Araseli Can 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 Work Phone: [facility] 11-12-2024 08:48-0400 Body temperature 98.01 [degF] Araseli Can 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 Work Phone: [facility] 11-12-2024 08:48-0400 Body weight 95.35 kg Araseli Can 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 Work Phone: [facility] 11-12-2024 08:48-0400 Diastolic blood pressure 64 mm[Hg] Araseli Can 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 Work Phone: [facility] 11-12-2024 08:48-0400 Heart rate 64 /min Araseli Can 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 Work Phone: [facility] 11-12-2024 08:48-0400 Respiratory rate 16 /min Araseli Can 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 Work Phone: [facility] 11-12-2024 08:48-0400 SaO2% (BldA) [Mass fraction] 97 % Araseli Can 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 Work Phone: [facility] 11-12-2024 08:48-0400 Systolic blood pressure 128 mm[Hg] Araseli Can 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 Work Phone: [facility] 11-10-2024 13:00-0400 Body mass index (BMI) [Ratio] 33.93 kg/m2 Araseli Can 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 Work Phone: [facility] 11-10-2024 13:00-0400 Body temperature 98.4 [degF] Araseli Can 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 Work Phone: [facility] 11-10-2024 13:00-0400 Body weight 95.35 kg Araseli Can 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 Work Phone: [facility] 11-10-2024 13:00-0400 Diastolic blood pressure 72 mm[Hg] Araseli Can 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 Work Phone: [facility] 11-10-2024 13:00-0400 Heart rate 61 /min Araseli Can 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 Work Phone: [facility] 11-10-2024 13:00-0400 Respiratory rate 15 /min Araseli Can 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 Work Phone: [facility] 11-10-2024 13:00-0400 SaO2% (BldA) [Mass fraction] 99 % Araseli Can 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 Work Phone: [facility] 11-10-2024 13:00-0400 Systolic blood pressure 134 mm[Hg] Araseli Can 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 Work Phone: [facility] 11-06-2024 10:10-0400 Body mass index (BMI) [Ratio] 34.38 kg/m2 Araseli Can 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 Work Phone: [facility] 11-06-2024 10:10-0400 Body temperature 98.2 [degF] Araseli Can 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 Work Phone: [facility] 11-06-2024 10:10-0400 Body weight 96.62 kg Araseli Can 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 Work Phone: [facility] 11-06-2024 10:10-0400 Diastolic blood pressure 92 mm[Hg] Araseli Can 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 Work Phone: [facility] 11-06-2024 10:10-0400 Heart rate 93 /min Araseli Can 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 Work Phone: [facility] 11-06-2024 10:10-0400 Respiratory rate 15 /min Araseli Can 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 Work Phone: [facility] 11-06-2024 10:10-0400 SaO2% (BldA) [Mass fraction] 99 % Araseli Can 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 Work Phone: [facility] 11-06-2024 10:10-0400 Systolic blood pressure 131 mm[Hg] Araseli Can 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 Work Phone: [facility] 11-05-2024 11:31-0400 Body temperature 97.5 [degF] Damon Vu MD Work Phone: [facility] 11-05-2024 11:31-0400 Diastolic blood pressure 71 mm[Hg] Damon Vu MD Work Phone: [facility] 11-05-2024 11:31-0400 Heart rate 82 /min Damon Vu MD Work Phone: [facility] 11-05-2024 11:31-0400 Respiratory rate 16 /min Damon Vu MD Work Phone: [facility] 11-05-2024 11:31-0400 SaO2% (BldA) [Mass fraction] 100 % Damon Vu MD Work Phone: [facility] [facility] 11-05-2024 11:31-0400 Systolic blood pressure 111 mm[Hg] Damon Vu MD Work Phone: [facility] 11-05-2024 05:39-0400 Body mass index (BMI) [Ratio] 35.19 kg/m2 Damon Vu MD Work Phone: [facility] 11-05-2024 05:39-0400 Body weight 98.88 kg Damon Vu MD Work Phone: [facility] 11-03-2024 10:33-0400 Body height 167.6 cm Damon Vu MD Work Phone: [facility] 05-07-2024 13:41-0400 Body temperature 97.9 [degF] Jerome Perdomo MD Work Phone: [facility] 05-07-2024 13:41-0400 Diastolic blood pressure 111 mm[Hg] Jerome Perdomo MD Work Phone: [facility] 05-07-2024 13:41-0400 Heart rate 73 /min Jerome Perdomo MD Work Phone: [facility] 05-07-2024 13:41-0400 Respiratory rate 16 /min Jerome Perdomo MD Work Phone: [facility] 05-07-2024 13:41-0400 Systolic blood pressure 183 mm[Hg] Jerome Perdomo MD Work Phone: [facility] 04-23-2024 11:30-0400 Body temperature 98.4 [degF] Jerome Perdomo MD Work Phone: [facility] 04-23-2024 11:30-0400 Diastolic blood pressure 77 mm[Hg] Jerome Perdomo MD Work Phone: [facility] 04-23-2024 11:30-0400 Heart rate 64 /min Jerome Perdomo MD Work Phone: [facility] 04-23-2024 11:30-0400 Respiratory rate 18 /min Jerome Perdomo MD Work Phone: [employer] 04-23-2024 11:30-0400 Systolic blood pressure 181 mm[Hg] Jerome Perdomo MD Work Phone: [facility] 04-09-2024 13:49-0400 Body temperature 97.9 [degF] Jerome Perdomo MD Work Phone: [employer] 04-09-2024 13:49-0400 Diastolic blood pressure 90 mm[Hg] Jerome Perdomo MD Work Phone: [facility] 04-09-2024 13:49-0400 Heart rate 69 /min Jerome Perdomo MD Work Phone: [facility] 04-09-2024 13:49-0400 Respiratory rate 18 /min Jerome Perdomo MD Work Phone: [facility] 04-09-2024 13:49-0400 Systolic blood pressure 168 mm[Hg] Jerome Perdomo MD Work Phone: [facility] 03-26-2024 15:03-0400 Body height 167.6 cm Lyric Cruz 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 Work Phone: [facility] 03-26-2024 15:03-0400 Body mass index (BMI) [Ratio] 41.21 kg/m2 Lyric Cruz 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 Work Phone: [facility] 03-26-2024 15:03-0400 Body weight 115.8 kg Lyric Cruz 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 Work Phone: [facility] 03-26-2024 15:03-0400 Diastolic blood pressure 84 mm[Hg] Lyric Cruz 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 Work Phone: [facility] 03-26-2024 15:03-0400 Heart rate 66 /min Lyric Cruz 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 Work Phone: [facility] 03-26-2024 15:03-0400 Systolic blood pressure 132 mm[Hg] Lyric Cruz 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 Work Phone: [facility] 03-26-2024 11:10-0400 Body temperature 98.01 [degF] Jerome Perdomo MD Work Phone: [facility] 03-26-2024 11:10-0400 Diastolic blood pressure 87 mm[Hg] Jerome Perdomo MD Work Phone: [facility] 03-26-2024 11:10-0400 Heart rate 61 /min Jerome Perdomo MD Work Phone: [facility] 03-26-2024 11:10-0400 Respiratory rate 16 /min Jerome Perdomo MD Work Phone: [facility] 03-26-2024 11:10-0400 Systolic blood pressure 164 mm[Hg] Jerome Perdomo MD Work Phone: [facility] 03-14-2024 15:05-0400 Body height 167.6 cm Christy Rizzo MD Work Phone: [facility] 03-14-2024 15:05-0400 Body mass index (BMI) [Ratio] 41.16 kg/m2 Christy Rizzo MD Work Phone: [facility] 03-14-2024 15:05-0400 Body weight 115.67 kg Christy Rizzo MD Work Phone: [facility] 03-12-2024 14:10-0400 Body temperature 97.81 [degF] Jerome Perdomo MD Work Phone: [facility] 03-12-2024 14:10-0400 Diastolic blood pressure 76 mm[Hg] Jerome Perdomo MD Work Phone: [facility] 03-12-2024 14:10-0400 Heart rate 80 /min Jerome Perdomo MD Work Phone: [facility] 03-12-2024 14:10-0400 Systolic blood pressure 135 mm[Hg] Jerome Perdomo MD Work Phone: [facility] 03-04-2024 15:15-0400 Body height 167.6 cm Anjana Meadows 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 Work Phone: [facility] 03-04-2024 15:15-0400 Body mass index (BMI) [Ratio] 41.19 kg/m2 Anjana Frandy 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 Work Phone: [facility] 03-04-2024 15:15-0400 Body weight 115.76 kg Anjana Frandy 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 Work Phone: [facility] 03-04-2024 15:15-0400 Diastolic blood pressure 96 mm[Hg] Anjana Meadows 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 Work Phone: [facility] 03-04-2024 15:15-0400 Heart rate 73 /min Anjana Meadows 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 Work Phone: [facility] 03-04-2024 15:15-0400 Systolic blood pressure 200 mm[Hg] Anjana Meadows 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 Work Phone: [facility] 02-27-2024 11:44-0400 Body temperature 97.5 [degF] Jerome Perdomo MD Work Phone: [facility] 02-27-2024 11:44-0400 Diastolic blood pressure 95 mm[Hg] Jerome Perdomo MD Work Phone: [facility] 02-27-2024 11:44-0400 Heart rate 80 /min Jreome Perdomo MD Work Phone: [facility] 02-27-2024 11:44-0400 Respiratory rate 18 /min Jerome Perdomo MD Work Phone: [facility] 02-27-2024 11:44-0400 Systolic blood pressure 202 mm[Hg] Jerome Perdomo MD Work Phone: [facility] 02-13-2024 13:43-0400 Body temperature 97.81 [degF] Jerome Perdomo MD Work Phone: [facility] 02-13-2024 13:43-0400 Diastolic blood pressure 96 mm[Hg] Jerome Perdomo MD Work Phone: [facility] 02-13-2024 13:43-0400 Heart rate 70 /min Jerome Perdomo MD Work Phone: [facility] 02-13-2024 13:43-0400 Respiratory rate 16 /min Jerome Perdomo MD Work Phone: [facility] 02-13-2024 13:43-0400 Systolic blood pressure 185 mm[Hg] Jerome Perdomo MD Work Phone: [facility] 01-30-2024 11:45-0400 Body temperature 98.4 [degF] Jerome Perdomo MD Work Phone: [facility] 01-30-2024 11:45-0400 Diastolic blood pressure 97 mm[Hg] Jerome Perdomo MD Work Phone: [facility] 01-30-2024 11:45-0400 Heart rate 74 /min Jerome Perdomo MD Work Phone: [facility] 01-30-2024 11:45-0400 Respiratory rate 18 /min Jerome Perdomo MD Work Phone: [facility] 01-30-2024 11:45-0400 Systolic blood pressure 180 mm[Hg] Jerome Perdomo MD Work Phone: [facility] 01-16-2024 15:47-0400 Body temperature 97.9 [degF] Jerome Perdomo MD Work Phone: [facility] 01-16-2024 15:47-0400 Diastolic blood pressure 82 mm[Hg] Jerome Perdomo MD Work Phone: [facility] 01-16-2024 15:47-0400 Heart rate 70 /min Jerome Perdomo MD Work Phone: [facility] 01-16-2024 15:47-0400 Respiratory rate 20 /min Jerome Perdomo MD Work Phone: [facility] 01-16-2024 15:47-0400 Systolic blood pressure 162 mm[Hg] Jerome Perdomo MD Work Phone: [facility] 2024 11:52-0400 Body temperature 97.59 [degF] Jerome Perdomo MD Work Phone: [facility] 2024 11:52-0400 Diastolic blood pressure 74 mm[Hg] Jerome Perdomo MD Work Phone: [facility] 2024 11:52-0400 Heart rate 74 /min Jerome Perdomo MD Work Phone: [facility] 2024 11:52-0400 Respiratory rate 18 /min Jerome Perdomo MD Work Phone: [facility] 2024 11:52-0400 Systolic blood pressure 155 mm[Hg] Jerome Perdomo MD Work Phone: [facility] 12-20-2023 16:27-0400 Body temperature 97.59 [degF] Jerome Perdomo MD Work Phone: [facility] 12-20-2023 16:27-0400 Diastolic blood pressure 84 mm[Hg] Jerome Perdomo MD Work Phone: [facility] 12-20-2023 16:27-0400 Heart rate 74 /min Jerome Perdomo MD Work Phone: [facility] 12-20-2023 16:27-0400 Respiratory rate 18 /min Jerome Perdomo MD Work Phone: [facility] 12-20-2023 16:27-0400 Systolic blood pressure 142 mm[Hg] Jerome Perdomo MD Work Phone: [facility] 12-05-2023 11:27-0400 Diastolic blood pressure 74 mm[Hg] Jerome Perdomo MD Work Phone: [facility] 12-05-2023 11:27-0400 Heart rate 64 /min Jerome Perdomo MD Work Phone: [facility] 12-05-2023 11:27-0400 Respiratory rate 18 /min Jerome Perdomo MD Work Phone: [facility] 12-05-2023 11:27-0400 Systolic blood pressure 175 mm[Hg] Jerome Perdomo MD Work Phone: [facility] 11-07-2023 11:48-0400 Body temperature 98.1 [degF] Jerome Perdomo MD Work Phone: [facility] 11-07-2023 11:48-0400 Respiratory rate 18 /min Jerome Perdomo MD Work Phone: [facility] 11-02-2023 15:29-0400 Body height 167.6 cm Lyric Cruz 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 Work Phone: [facility] 11-02-2023 15:29-0400 Body mass index (BMI) [Ratio] 43.48 kg/m2 Lyric Cruz 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 Work Phone: [facility] 11-02-2023 15:29-0400 Body weight 122.2 kg Lyric Cruz 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 Work Phone: [facility] 11-02-2023 15:29-0400 Diastolic blood pressure 80 mm[Hg] Lyric Cruz 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 Work Phone: [facility] 11-02-2023 15:29-0400 Heart rate 74 /min Lyric Cruz 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 Work Phone: [facility] 11-02-2023 15:29-0400 Systolic blood pressure 110 mm[Hg] Lyric Cruz 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 Work Phone: [facility] 11-01-2023 15:26-0400 Body mass index (BMI) [Ratio] 43.26 kg/m2 Anjana Kingod 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 Work Phone: [facility] 11-01-2023 15:26-0400 Body weight 121.56 kg Anjana Kingod 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 Work Phone: [facility] 11-01-2023 15:26-0400 Diastolic blood pressure 89 mm[Hg] Anjana Frandy 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 Work Phone: [facility] 11-01-2023 15:26-0400 Heart rate 80 /min Anjana Frandy 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 Work Phone: [facility] 11-01-2023 15:26-0400 Systolic blood pressure 138 mm[Hg] Anjana Frandy 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 Work Phone: [facility] 10-24-2023 11:40-0400 Body temperature 98.1 [degF] Jerome Perdomo MD Work Phone: [facility] 10-24-2023 11:40-0400 Diastolic blood pressure 73 mm[Hg] Jerome Perdomo MD Work Phone: [facility] 10-24-2023 11:40-0400 Heart rate 59 /min Jerome Perdomo MD Work Phone: [facility] 10-24-2023 11:40-0400 Respiratory rate 20 /min Jerome Perdomo MD Work Phone: [facility] 10-24-2023 11:40-0400 Systolic blood pressure 170 mm[Hg] Jerome Perdomo MD Work Phone: [facility] 10-10-2023 13:34-0400 Body temperature 97.59 [degF] Jerome Perdomo MD Work Phone: [facility] 10-10-2023 13:34-0400 Diastolic blood pressure 85 mm[Hg] Jerome Perdomo MD Work Phone: [facility] 10-10-2023 13:34-0400 Heart rate 65 /min Jerome Perdomo MD Work Phone: [facility] 10-10-2023 13:34-0400 Respiratory rate 16 /min Jerome Perdomo MD Work Phone: [facility] 10-10-2023 13:34-0400 Systolic blood pressure 162 mm[Hg] Jerome Perdomo MD Work Phone: [facility] 09-26-2023 11:22-0500 Body temperature 98.1 [degF] Jerome Perdomo MD Work Phone: [facility] 09-26-2023 11:22-0500 Diastolic blood pressure 92 mm[Hg] Jerome Perdomo MD Work Phone: [facility] 09-26-2023 11:22-0500 Heart rate 66 /min Jerome Perdomo MD Work Phone: [employer] 09-26-2023 11:22-0500 Respiratory rate 20 /min Jerome Perdomo MD Work Phone: [facility] 09-26-2023 11:22-0500 Systolic blood pressure 158 mm[Hg] Jerome Perdomo MD Work Phone: [facility] 09-13-2023 15:34-0500 Body temperature 98.1 [degF] Jerome Perdomo MD Work Phone: [employer] 09-13-2023 15:34-0500 Diastolic blood pressure 92 mm[Hg] Jerome Perdomo MD Work Phone: [employer] [facility] Comment on above: Seeing family doctor on Sunday09-13-2023 15:34-0500 Heart rate 66 /min Jerome Perdomo MD Work Phone: [facility] 09-13-2023 15:34-0500 Respiratory rate 20 /min Jerome Perdomo MD Work Phone: [employer] [facility] 09-13-2023 15:34-0500 Systolic blood pressure 158 mm[Hg] Jerome Perdomo MD Work Phone: [employer] Comment on above: Seeing family doctor on Sunday09-11-2023 14:34-0500 Body height 167.6 cm Ino He MD Work Phone: [facility] 09-11-2023 14:34-0500 Body mass index (BMI) [Ratio] 42.09 kg/m2 Ino He MD Work Phone: [facility] 09-11-2023 14:34-0500 Body temperature 98.2 [degF] Ino He MD Work Phone: [facility] 09-11-2023 14:34-0500 Body weight 118.3 kg Ino He MD Work Phone: [facility] 09-11-2023 14:34-0500 Diastolic blood pressure 86 mm[Hg] Ino He MD Work Phone: [facility] 09-11-2023 14:34-0500 Heart rate 79 /min Ino He MD Work Phone: [facility] 09-11-2023 14:34-0500 Respiratory rate 18 /min Ino He MD Work Phone: [facility] 09-11-2023 14:34-0500 SaO2% (BldA) [Mass fraction] 97 % Ino He MD Work Phone: [facility] 09-11-2023 14:34-0500 Systolic blood pressure 180 mm[Hg] Ino He MD Work Phone: [facility] 08-29-2023 11:22-0500 Body temperature 98.1 [degF] Jerome Perdomo MD Work Phone: [facility] 08-29-2023 11:22-0500 Diastolic blood pressure 76 mm[Hg] Jerome Perdomo MD Work Phone: [facility] 08-29-2023 11:22-0500 Heart rate 61 /min Jerome Perdomo MD Work Phone: [facility] 08-29-2023 11:22-0500 Respiratory rate 20 /min Jerome Perdomo MD Work Phone: [facility] 08-29-2023 11:22-0500 Systolic blood pressure 175 mm[Hg] Jerome Perdomo MD Work Phone: [facility] 08-15-2023 15:59-0500 Body temperature 98.71 [degF] Jerome Perdomo MD Work Phone: [facility] 08-15-2023 15:59-0500 Diastolic blood pressure 96 mm[Hg] Jerome Perdomo MD Work Phone: [facility] 08-15-2023 15:59-0500 Heart rate 60 /min Jerome Perdomo MD Work Phone: [facility] 08-15-2023 15:59-0500 Respiratory rate 16 /min Jerome Perdomo MD Work Phone: [facility] 08-15-2023 15:59-0500 Systolic blood pressure 184 mm[Hg] Jerome Perdomo MD Work Phone: [facility] 08-01-2023 11:44-0500 Body temperature 97.7 [degF] Jerome Perdomo MD Work Phone: [facility] 08-01-2023 11:44-0500 Diastolic blood pressure 84 mm[Hg] Jerome Perdomo MD Work Phone: [facility] 08-01-2023 11:44-0500 Heart rate 74 /min Jerome Perdomo MD Work Phone: [facility] 08-01-2023 11:44-0500 Respiratory rate 18 /min Jerome Perdomo MD Work Phone: [facility] 08-01-2023 11:44-0500 Systolic blood pressure 196 mm[Hg] Jerome Perdomo MD Work Phone: [facility] 07-18-2023 11:39-0500 Body temperature 98.2 [degF] Jerome Perdomo MD Work Phone: [facility] 07-18-2023 11:39-0500 Diastolic blood pressure 72 mm[Hg] Jerome Perdomo MD Work Phone: [facility] 07-18-2023 11:39-0500 Heart rate 83 /min Jerome Perdomo MD Work Phone: [facility] 07-18-2023 11:39-0500 Respiratory rate 16 /min Jerome Perdomo MD Work Phone: [facility] 07-18-2023 11:39-0500 Systolic blood pressure 197 mm[Hg] Jerome Perdomo MD Work Phone: [facility] 07-04-2023 16:04-0500 Body temperature 98.1 [degF] Jerome Perdomo MD Work Phone: [facility] 07-04-2023 16:04-0500 Diastolic blood pressure 84 mm[Hg] Jerome Perdomo MD Work Phone: [facility] 07-04-2023 16:04-0500 Heart rate 74 /min Jerome Perdomo MD Work Phone: [facility] 07-04-2023 16:04-0500 Respiratory rate 18 /min Jerome Perdomo MD Work Phone: [facility] 07-04-2023 16:04-0500 Systolic blood pressure 145 mm[Hg] Jerome Perdomo MD Work Phone: [facility] 06-06-2023 16:08-0500 Body temperature 97.59 [degF] Jerome Perdomo MD Work Phone: [facility] 06-06-2023 16:08-0500 Diastolic blood pressure 74 mm[Hg] Jerome Perdomo MD Work Phone: [facility] 06-06-2023 16:08-0500 Heart rate 76 /min Jerome Perdomo MD Work Phone: [facility] 06-06-2023 16:08-0500 Respiratory rate 18 /min Jerome Perdomo MD Work Phone: [facility] 06-06-2023 16:08-0500 Systolic blood pressure 146 mm[Hg] Jerome Perdomo MD Work Phone: [facility] 05-23-2023 12:12-0400 Body temperature 98.91 [degF] Jerome Perdomo MD Work Phone: [facility] 05-23-2023 12:12-0400 Diastolic blood pressure 82 mm[Hg] Jerome Perdomo MD Work Phone: [facility] 05-23-2023 12:12-0400 Heart rate 69 /min Jerome Perdomo MD Work Phone: [facility] 05-23-2023 12:12-0400 Respiratory rate 18 /min Jerome Perdomo MD Work Phone: [facility] 05-23-2023 12:12-0400 Systolic blood pressure 160 mm[Hg] Jerome Perdomo MD Work Phone: [facility] 05-09-2023 15:30-0400 Body height 167.6 cm Bridget Alcantara MD Work Phone: [facility] 05-09-2023 15:30-0400 Body mass index (BMI) [Ratio] 44.22 kg/m2 Bridget Alcantara MD Work Phone: [facility] 05-09-2023 15:30-0400 Body weight 124.29 kg Bridget Alcantara MD Work Phone: [facility] 05-09-2023 15:30-0400 Diastolic blood pressure 80 mm[Hg] Bridget Alcantara MD Work Phone: [facility] 05-09-2023 15:30-0400 Systolic blood pressure 158 mm[Hg] Bridget Alcantara MD Work Phone: [facility] 05-08-2023 11:52-0400 Body temperature 97.81 [degF] Jerome Perdomo MD Work Phone: [facility] 05-08-2023 11:52-0400 Diastolic blood pressure 77 mm[Hg] Jerome Perdomo MD Work Phone: [facility] 05-08-2023 11:52-0400 Heart rate 93 /min Jerome Perdomo MD Work Phone: [facility] 05-08-2023 11:52-0400 Respiratory rate 18 /min Jerome Perdomo MD Work Phone: [facility] 05-08-2023 11:52-0400 Systolic blood pressure 181 mm[Hg] Jerome Perdomo MD Work Phone: [facility] 04-25-2023 12:11-0400 Body temperature 96.8 [degF] Jerome Perdomo MD Work Phone: [facility] 04-25-2023 12:11-0400 Diastolic blood pressure 81 mm[Hg] Jerome Perdomo MD Work Phone: [facility] 04-25-2023 12:11-0400 Heart rate 64 /min Jerome Perdomo MD Work Phone: [facility] 04-25-2023 12:11-0400 Respiratory rate 20 /min Jerome Perdomo MD Work Phone: [facility] 04-25-2023 12:11-0400 Systolic blood pressure 144 mm[Hg] Jerome Perdomo MD Work Phone: [facility] 04-17-2023 11:37-0400 Body temperature 98.4 [degF] Jerome Perdomo MD Work Phone: [facility] 04-17-2023 11:37-0400 Diastolic blood pressure 84 mm[Hg] Jerome Perdomo MD Work Phone: [facility] 04-17-2023 11:37-0400 Heart rate 58 /min Jerome Perdomo MD Work Phone: [facility] 04-17-2023 11:37-0400 Respiratory rate 20 /min Jerome Perdomo MD Work Phone: [facility] 04-17-2023 11:37-0400 Systolic blood pressure 194 mm[Hg] Jerome Perdomo MD Work Phone: [facility] 04-11-2023 11:24-0400 Body temperature 97.9 [degF] Jerome Perdomo MD Work Phone: [facility] 04-11-2023 11:24-0400 Diastolic blood pressure 79 mm[Hg] Jerome Perdomo MD Work Phone: [facility] 04-11-2023 11:24-0400 Heart rate 68 /min Jerome Perdomo MD Work Phone: [facility] 04-11-2023 11:24-0400 Respiratory rate 16 /min Jerome Perdomo MD Work Phone: [facility] 04-11-2023 11:24-0400 Systolic blood pressure 190 mm[Hg] Jerome Perdomo MD Work Phone: [facility] 04-09-2023 13:08-0400 Body temperature 98.4 [degF] Jerome Perdomo MD Work Phone: [facility] 04-09-2023 13:08-0400 Diastolic blood pressure 73 mm[Hg] Jerome Perdomo MD Work Phone: [facility] 04-09-2023 13:08-0400 Heart rate 69 /min Jerome Perdomo MD Work Phone: [facility] 04-09-2023 13:08-0400 Respiratory rate 16 /min Jerome Perdomo MD Work Phone: [facility] 04-09-2023 13:08-0400 Systolic blood pressure 184 mm[Hg] Jerome Perdomo MD Work Phone: [facility] 03-28-2023 11:50-0400 Diastolic blood pressure 83 mm[Hg] Jerome Perdomo MD Work Phone: [facility] 03-28-2023 11:50-0400 Heart rate 61 /min Jerome Perdomo MD Work Phone: [facility] 03-28-2023 11:50-0400 Respiratory rate 20 /min Jerome Perdomo MD Work Phone: [facility] 03-28-2023 11:50-0400 Systolic blood pressure 147 mm[Hg] Jerome Perdomo MD Work Phone: [facility] 03-14-2023 11:49-0400 Body temperature 97.5 [degF] Jerome Perdomo MD Work Phone: [facility] 03-14-2023 11:49-0400 Diastolic blood pressure 88 mm[Hg] Jerome Perdomo MD Work Phone: [facility] 03-14-2023 11:49-0400 Heart rate 63 /min Jerome Perdomo MD Work Phone: [facility] 03-14-2023 11:49-0400 Respiratory rate 20 /min Jerome Perdomo MD Work Phone: [facility] 03-14-2023 11:49-0400 Systolic blood pressure 191 mm[Hg] Jerome Perdomo MD Work Phone: [facility] 03-02-2023 14:07-0400 Body height 167.6 cm Ino He MD Work Phone: [facility] 03-02-2023 14:07-0400 Body mass index (BMI) [Ratio] 45.35 kg/m2 Ino He MD Work Phone: [facility] 03-02-2023 14:07-0400 Body temperature 96.91 [degF] Ino He MD Work Phone: [facility] 03-02-2023 14:07-0400 Body weight 127.46 kg Ino He MD Work Phone: [facility] 03-02-2023 14:07-0400 Diastolic blood pressure 79 mm[Hg] Ino He MD Work Phone: [facility] 03-02-2023 14:07-0400 Respiratory rate 18 /min Ino He MD Work Phone: [facility] 03-02-2023 14:07-0400 SaO2% (BldA) [Mass fraction] 97 % Ino He MD Work Phone: [facility] 03-02-2023 14:07-0400 Systolic blood pressure 193 mm[Hg] Ino He MD Work Phone: [facility] 02-14-2023 11:35-0400 Body temperature 98.1 [degF] Jerome Perdomo MD Work Phone: [facility] 02-14-2023 11:35-0400 Diastolic blood pressure 86 mm[Hg] Jerome Perdomo MD Work Phone: [facility] 02-14-2023 11:35-0400 Heart rate 66 /min Jerome Perdomo MD Work Phone: [employer] 02-14-2023 11:35-0400 Respiratory rate 20 /min Jerome Perdomo MD Work Phone: [facility] 02-14-2023 11:35-0400 Systolic blood pressure 181 mm[Hg] Jerome Perdomo MD Work Phone: [facility] 01-31-2023 11:42-0400 Body temperature 98.2 [degF] Jerome Perdomo MD Work Phone: [facility] 01-31-2023 11:42-0400 Diastolic blood pressure 83 mm[Hg] Jerome Perdomo MD Work Phone: [facility] 01-31-2023 11:42-0400 Heart rate 61 /min Jerome Perdomo MD Work Phone: [facility] 01-31-2023 11:42-0400 Respiratory rate 20 /min Jerome Perdomo MD Work Phone: [facility] 01-31-2023 11:42-0400 Systolic blood pressure 191 mm[Hg] Jerome Perdomo MD Work Phone: [facility] 01-19-2023 15:30-0400 Body height 167.6 cm Lyric Cruz 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 Work Phone: [facility] 01-19-2023 15:30-0400 Body mass index (BMI) [Ratio] 45.89 kg/m2 Lyric Cruz 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 Work Phone: [facility] 01-19-2023 15:30-0400 Body weight 128.96 kg Lyric Cruz 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 Work Phone: [facility] 01-19-2023 15:30-0400 Diastolic blood pressure 88 mm[Hg] Lyric Cruz 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 Work Phone: [facility] 01-19-2023 15:30-0400 Heart rate 64 /min Lyric Cruz 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 Work Phone: [facility] 01-19-2023 15:30-0400 Systolic blood pressure 128 mm[Hg] Lyric Cruz APRN - 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 Work Phone: [facility] 01-17-2023 11:37-0400 Body temperature 97 [degF] Jerome Perdomo MD Work Phone: [facility] 01-17-2023 11:37-0400 Diastolic blood pressure 76 mm[Hg] Jerome Perdomo MD Work Phone: [facility] 01-17-2023 11:37-0400 Heart rate 76 /min Jerome Perdomo MD Work Phone: [facility] 01-17-2023 11:37-0400 Systolic blood pressure 152 mm[Hg] Jerome Perdomo MD Work Phone: [facility] 01-03-2023 16:13-0400 Body temperature 97.39 [degF] Jerome Perdomo MD Work Phone: [facility] 01-03-2023 16:13-0400 Diastolic blood pressure 90 mm[Hg] Jerome Perdomo MD Work Phone: [facility] 01-03-2023 16:13-0400 Heart rate 90 /min Jerome Perdomo MD Work Phone: [facility] 01-03-2023 16:13-0400 Respiratory rate 20 /min Jerome Perdomo MD Work Phone: [facility] 01-03-2023 16:13-0400 Systolic blood pressure 187 mm[Hg] Jerome Perdomo MD Work Phone: [facility] 01-03-2023 11:55-0400 Body temperature 97.39 [degF] Jerome Perdomo MD Work Phone: [facility] 01-03-2023 11:55-0400 Diastolic blood pressure 90 mm[Hg] Jerome Perdomo MD Work Phone: [facility] 01-03-2023 11:55-0400 Respiratory rate 20 /min Jerome Perdomo MD Work Phone: [facility] 01-03-2023 11:55-0400 Systolic blood pressure 187 mm[Hg] Jerome Perdomo MD Work Phone: [facility] 12-20-2022 12:58-0400 Body temperature 97.9 [degF] Jerome Perdomo MD Work Phone: [facility] 12-20-2022 12:58-0400 Diastolic blood pressure 91 mm[Hg] Jerome Perdomo MD Work Phone: [facility] 12-20-2022 12:58-0400 Heart rate 90 /min Jerome Perdomo MD Work Phone: [facility] 12-20-2022 12:58-0400 Respiratory rate 20 /min Jerome Perdomo MD Work Phone: [facility] 12-20-2022 12:58-0400 Systolic blood pressure 178 mm[Hg] Jerome Perdomo MD Work Phone: [facility] 11-24-2022 16:16-0400 Body temperature 97.11 [degF] Jerome Perdomo MD Work Phone: [facility] 11-24-2022 16:16-0400 Diastolic blood pressure 78 mm[Hg] Jerome Perdomo MD Work Phone: [facility] 11-24-2022 16:16-0400 Heart rate 68 /min Jerome Perdomo MD Work Phone: [facility] 11-24-2022 16:16-0400 Respiratory rate 18 /min Jerome Perdomo MD Work Phone: [facility] 11-24-2022 16:16-0400 Systolic blood pressure 155 mm[Hg] Jerome Perdomo MD Work Phone: [employer] [facility] 11-22-2022 11:36-0400 Body temperature 98.6 [degF] Jerome Perdomo MD Work Phone: [facility] 11-22-2022 11:36-0400 Diastolic blood pressure 90 mm[Hg] Jerome Perdomo MD Work Phone: [facility] 11-22-2022 11:36-0400 Heart rate 64 /min Jerome Perdomo MD Work Phone: [facility] 11-22-2022 11:36-0400 Respiratory rate 20 /min Jerome Perdomo MD Work Phone: [facility] 11-22-2022 11:36-0400 Systolic blood pressure 166 mm[Hg] Jerome Perdomo MD Work Phone: [facility] 11-08-2022 11:08-0400 Body temperature 98.49 [degF] Jerome Perdomo MD Work Phone: [facility] 11-08-2022 11:08-0400 Diastolic blood pressure 93 mm[Hg] Jerome Perdomo MD Work Phone: [facility] 11-08-2022 11:08-0400 Heart rate 69 /min Jerome Perdomo MD Work Phone: [facility] 11-08-2022 11:08-0400 Respiratory rate 20 /min Jerome Perdomo MD Work Phone: [facility] 11-08-2022 11:08-0400 Systolic blood pressure 163 mm[Hg] Jerome Perdomo MD Work Phone: [facility] 11-03-2022 13:37-0400 Body height 167.6 cm Jaqueline Renuka 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 Work Phone: [facility] 11-03-2022 13:37-0400 Body mass index (BMI) [Ratio] 45.68 kg/m2 Jaqueline Renuka 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 Work Phone: [facility] 11-03-2022 13:37-0400 Body weight 128.37 kg Jaqueline Renuka 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 Work Phone: [facility] 11-03-2022 13:37-0400 Diastolic blood pressure 91 mm[Hg] Jaqueline Renuka 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 Work Phone: [facility] 11-03-2022 13:37-0400 Heart rate 73 /min Jaqueline Renuka 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 Work Phone: [facility] 11-03-2022 13:37-0400 Systolic blood pressure 188 mm[Hg] Jaqueline Grayson AMAURY Butts 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 Work Phone: [facility] 10-25-2022 11:40-0400 Body temperature 97.81 [degF] Jerome Perdomo MD Work Phone: [facility] 10-25-2022 11:40-0400 Diastolic blood pressure 82 mm[Hg] Jerome Perdomo MD Work Phone: [facility] 10-25-2022 11:40-0400 Heart rate 60 /min Jerome Perdomo MD Work Phone: [facility] 10-25-2022 11:40-0400 Respiratory rate 16 /min Jerome Perdomo MD Work Phone: [facility] 10-25-2022 11:40-0400 Systolic blood pressure 169 mm[Hg] Jerome Perdomo MD Work Phone: [facility] 10-11-2022 13:13-0400 Body temperature 98.2 [degF] Jerome Perdomo MD Work Phone: [facility] 10-11-2022 13:13-0400 Diastolic blood pressure 80 mm[Hg] Jerome Perdomo MD Work Phone: [facility] 10-11-2022 13:13-0400 Heart rate 77 /min Jerome Perdomo MD Work Phone: [facility] 10-11-2022 13:13-0400 Respiratory rate 18 /min Jerome Perdomo MD Work Phone: [facility] 10-11-2022 13:13-0400 Systolic blood pressure 165 mm[Hg] Jerome Perdomo MD Work Phone: [facility] 09-27-2022 11:31-0500 Body temperature 98.29 [degF] Jerome Perdomo MD Work Phone: [facility] 09-27-2022 11:31-0500 Diastolic blood pressure 77 mm[Hg] Jerome Perdomo MD Work Phone: [facility] 09-27-2022 11:31-0500 Heart rate 65 /min Jerome Perdomo MD Work Phone: [facility] 09-27-2022 11:31-0500 Respiratory rate 20 /min Jerome Perdomo MD Work Phone: [facility] 09-27-2022 11:31-0500 Systolic blood pressure 185 mm[Hg] Jerome Perdoom MD Work Phone: [facility] 09-13-2022 15:28-0500 Body height 167.6 cm Ino He MD Work Phone: [facility] 09-13-2022 15:28-0500 Body mass index (BMI) [Ratio] 45.35 kg/m2 Ino He MD Work Phone: [facility] 09-13-2022 15:28-0500 Body temperature 97.81 [degF] Ino He MD Work Phone: [facility] 09-13-2022 15:28-0500 Body weight 127.46 kg Ino He MD Work Phone: [facility] 09-13-2022 15:28-0500 Diastolic blood pressure 73 mm[Hg] Ino He MD Work Phone: [facility] 09-13-2022 15:28-0500 Heart rate 74 /min Ino He MD Work Phone: [facility] 09-13-2022 15:28-0500 Respiratory rate 18 /min Ino He MD Work Phone: [facility] 09-13-2022 15:28-0500 Systolic blood pressure 148 mm[Hg] Ino He MD Work Phone: [facility] 09-13-2022 12:07-0500 Body temperature 98.1 [degF] Jerome Perdomo MD Work Phone: [facility] 09-13-2022 12:07-0500 Diastolic blood pressure 86 mm[Hg] Jerome Perdomo MD Work Phone: [facility] 09-13-2022 12:07-0500 Heart rate 82 /min Jerome Perdomo MD Work Phone: [facility] 09-13-2022 12:07-0500 Respiratory rate 18 /min Jerome Perdomo MD Work Phone: [facility] 09-13-2022 12:07-0500 Systolic blood pressure 156 mm[Hg] Jerome Perdomo MD Work Phone: [facility] 10-01-2020 13:21-0500 Body Temperature 98.1 [degF] [employer] [employer] Work Phone: 10-01-2020 13:21-0500 BP Diastolic 61 mm[Hg] [employer] Work Phone: 10-01-2020 13:21-0500 BP Systolic 129 mm[Hg] [employer] [employer] Work Phone: 10-01-2020 13:21-0500 Pulse (Heart Rate) 75 /min [employer] Work Phone: 10-01-2020 13:21-0500 Pulse Oximetry 100 % [employer] [employer] Work Phone: 10-01-2020 13:21-0500 Respiratory Rate 18 /min [employer] Work Phone: 09-30-2020 05:48-0500 BMI (Body Mass Index) 46.97 kg/m2 [employer] [employer] Work Phone: 09-30-2020 05:48-0500 Body weight 132 kg [employer] [employer] Work Phone: 09-30-2020 05:48-0500 Height 167.6 cm [employer]oc [employer] Work Phone: 09-23-2020 16:49-0500 BP Diastolic 84 mm[Hg] [employer] Work Phone: 09-23-2020 16:49-0500 BP Systolic 158 mm[Hg] [employer] Work Phone: 09-23-2020 16:49-0500 Pulse (Heart Rate) 73 /min [employer] Work Phone: 09-23-2020 16:26-0500 BMI (Body Mass Index) 46.97 kg/m2 [employer] Work Phone: 09-23-2020 16:26-0500 Body Temperature 97.7 [degF] [employer] Work Phone: 09-23-2020 16:26-0500 Body weight 132 kg [employer] Work Phone: 09-23-2020 16:26-0500 Height 167.6 cm [employer] Work Phone: 09-23-2020 16:26-0500 Pulse Oximetry 97 % [employer] Work Phone: 09-23-2020 16:26-0500 Respiratory Rate 20 /min [employer] Work Phone: Encounters Encounter Date Encounter Type Care Provider Facility Start: 05-11-2025 End: 05-19-2025 Evaluation and management of inpatient CUAUHTEMOC MACHADO [facility] Start: 01-03-2025 End: 01-03-2025 Follow-up encounter Cuauhtemoc Stubbs MD Work Phone: [facility] [place] Comment on above: PET/CT skull base to mid thigh Start: 2025 End: 2025 Subsequent hospital visit by physician Cuauhtemoc Stubbs MD Work Phone: [facility] PET Comment on above: Multiple lung nodule s; Endometrial cancer (CMS/HCC) (HCC) Start: 2025 End: 2025 ambulatory [place] ENOC [facility] Start: 01-01-2025 End: 01-01-2025 Telephone encounter Christy Rizzo MD Work Phone: [facility] Clinical Communication Start: 12-23-2024 End: 12-23-2024 ambulatory Scotty Hernandez RN [facility] Communication Start: 12-23-2024 End: 12-23-2024 Follow-up encounter Cuauhtemoc Stubbs MD Work Phone: [facility] Comment on above: Tissue exam Start: 12-23-2024 End: 12-23-2024 Patient encounter procedure Scotty Hernandez RN [facility] Communication Start: 12-22-2024 End: 12-22-2024 Subsequent hospital visit by physician Cuauhtemoc Stubbs MD Work Phone: [facility] Imaging Comment on above: Endometrial cancer ( CMS/HCC) (HCC); Multiple lung nodules Start: 12-22-2024 End: 12-22-2024 ambulatory CUAUHTEMOC STUBBS [facility] Start: 12-10-2024 End: 12-10-2024 Orders Only Cuauhtemoc Stubbs MD Work Phone: [facility] Comment on above: Endometrial cancer ( CMS/HCC) (HCC) (Primary Dx); Multiple lung nodules Start: 12-08-2024 End: 12-08-2024 Office outpatient visit 15 minutes Cuauhtemoc Stubbs MD Work Phone: [facility] Comment on above: Endometrial cancer ( CMS/HCC) (HCC) (Primary Dx); Multiple lung nodules Start: 12-08-2024 End: 12-08-2024 ambulatory CHRISTY RIZZO [facility] Start: 12-04-2024 End: 12-04-2024 ambulatory Seble Mckinley RN [facility] Communication Start: 12-04-2024 End: 12-04-2024 Patient encounter procedure Seble Mckinley RN [facility] Communication Start: 11-25-2024 End: 11-25-2024 ambulatory Araseli Can 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 Work Phone: [facility] Comment on above: Persistent atrial fi brillation (HCC) (Primary Dx); Type 2 diabetes mellitus with hyperglycemia, with long-term current use of insulin (HCC) Start: 11-21-2024 End: 11-21-2024 ambulatory Marianne Tang MD Work Phone: [facility] Comment on above: Debility (Primary Dx ); Essential hypertension, benign; Persistent atrial fibrillation (HCC); Type 2 diabetes mellitus with hyperglycemia, with long-term current use of insulin (HCC); Cognitive decline; Cellulitis of lower extremity, unspecified laterality; Weight gain; Poor sleep hygiene; Mild intermittent asthma without complication; Moderate aortic stenosis; Endometrial cancer (CMS/HCC) (HCC); Lymphedema of both lower extremities; Vitamin D deficiency; Acquired hypothyroidism; Primary open angle glaucoma of both eyes, mild stage; Moderate recurrent major depression (HCC); Mixed hyperlipidemia Start: 11-18-2024 End: 11-18-2024 ambulatory Araseli Can 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 Work Phone: [facility] Comment on above: Type 2 diabetes devon itus with hyperglycemia, with long-term current use of insulin (HCC) (Primary Dx); Lymphedema of both lower extremities Start: 11-12-2024 End: 11-12-2024 ambulatory Araseli Can 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 Work Phone: [facility] Comment on above: Lymphedema of both l ower extremities (Primary Dx); Type 2 diabetes mellitus with hyperglycemia, with long-term current use of insulin (HCC); Vitamin D deficiency Start: 11-11-2024 End: 11-11-2024 ambulatory CHRISTY RIZZO [facility] Start: 11-11-2024 End: 11-11-2024 Subsequent hospital visit by physician Christy Rizzo MD Work Phone: [facility] Comment on above: Abnormal weight loss ; Other malaise; Malignant neoplasm of endometrium (HCC); Other amnesia Start: 11-10-2024 End: 11-10-2024 ambulatory Araseli Can 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 Work Phone: [facility] Comment on above: Type 2 diabetes devon itus with hyperglycemia, with long-term current use of insulin (HCC) (Primary Dx); Debility; Poor sleep hygiene Start: 11-07-2024 End: 11-08-2024 ambulatory Marianne Tang MD Work Phone: [facility] Comment on above: Debility (Primary Dx ); Type 2 diabetes mellitus with hyperglycemia, with long-term current use of insulin (HCC); Cognitive decline; Vitamin D deficiency; Moderate aortic stenosis; Essential hypertension, benign; Persistent atrial fibrillation (HCC); Primary open angle glaucoma of both eyes, mild stage; Endometrial cancer (CMS/HCC) (HCC); Lymphedema of both lower extremities; Morbid obesity (HCC); Acquired hypothyroidism; Moderate recurrent major depression (HCC); Mixed hyperlipidemia Start: 11-06-2024 End: 11-06-2024 ambulatory Araseli Butts 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 Work Phone: [facility] Comment on above: Persistent atrial fi brillation (HCC) (Primary Dx); Type 2 diabetes mellitus with hyperglycemia, with long-term current use of insulin (HCC); Cognitive decline; Debility; Essential hypertension, benign; Moderate aortic stenosis; Mixed hyperlipidemia; Primary open angle glaucoma of both eyes, mild stage; Acquired hypothyroidism; Vitamin D deficiency Start: 11-05-2024 End: 11-06-2024 Telephone encounter Marianne Tang MD Work Phone: [facility] Start: 11-01-2024 End: 11-05-2024 Evaluation and management of inpatient Damon Vu MD Work Phone: [facility] Cardiac Post Inter[facility] Progressive [facility] PCU 4W Comment on above: Persistent atrial fi brillation (HCC) (Primary Dx); Hyperglycemia; Acute cystitis with hematuria; RADHA (obstructive sleep apnea); Acute on chronic diastolic heart failure (HCC); Delirium; Debility; Memory loss; Declining functional status; Weight loss Start: 11-01-2024 End: 01-30-2025 ambulatory Tsering Tian RN [facility] Clinical Communication Start: 11-01-2024 End: 01-30-2025 Patient encounter procedure Tsering Tian RN [facility] Communication Start: 10-27-2024 End: 01-26-2025 Transcribe Orders Christy Rizzo MD Work Phone: [facility] Scheduling Comment on above: Abnormal weight loss (Primary Dx); Other malaise; Malignant neoplasm of endometrium (HCC); Other amnesia; Heart failure, unspecified (HCC); Nonrheumatic aortic (valve) stenosis; Other general symptoms and signs Start: 05-07-2024 End: 05-07-2024 ambulatory [place] Start: 05-07-2024 End: 05-07-2024 Subsequent hospital visit by physician Jerome Perdomo MD Work Phone: [facility] [place] Comment on above: Lymphedema Start: 05-02-2024 End: 05-02-2024 ambulatory MOSES ACEVEDO Facility:[facility] Start: 05-02-2024 End: 05-02-2024 Patient encounter procedure Moses Acevedo MD Work Phone: [facility] Comment on above: Primary open angle g laucoma of both eyes, mild stage (Primary Dx); 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 macular edema, with long-term current use of insulin ([facility]); 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; Dry eye syndrome of bilateral lacrimal glands; Refractive error; Dermatochalasis of upper and lower eyelids of both eyes Start: 04-23-2024 ambulatory Irvin BRIDGET ARREDONDO [facility] Start: 04-23-2024 End: 04-23-2024 Office outpatient visit 15 minutes Jerome Perdomo MD Work Phone: [facility] [place] Comment on above: Lymphedema (Primary Dx) Start: 04-09-2024 End: 04-09-2024 ambulatory BRIDGET ARREDONDO [facility] Start: 04-09-2024 End: 04-09-2024 Subsequent hospital visit by physician Jerome Perdomo MD Work Phone: [facility] [place] Comment on above: Lymphedema of both l ower extremities Start: 03-26-2024 End: 03-26-2024 Office outpatient visit 25 minutes Lyric Cruz 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 Work Phone: [facility] End[facility]ology Comment on above: Type 2 diabetes devon itus with hyperglycemia, with long-term current use of insulin (HCC) (Primary Dx); Primary hypertension; Hyperlipidemia associated with type 2 diabetes mellitus (HCC) (HCC); Class 3 severe obesity due to excess calories with serious comorbidity and body mass index (BMI) of 40.0 to 44.9 in adult (HCC); Acquired hypothyroidism; Insulin resistance Start: 03-26-2024 End: 03-26-2024 Office outpatient visit 15 minutes Jerome Perdomo MD Work Phone: [facility] Comment on above: Lymphedema of both l ower extremities (Primary Dx) Start: 03-17-2024 End: 03-18-2024 Telephone encounter Lyric Cruz MOTORCYCLE REPAIRER - [employer] Work Phone: [facility] Comment on above: Appointment Request Start: 03-14-2024 End: 03-14-2024 Subsequent hospital visit by physician Christy Rizzo MD Work Phone: [facility] [place] [facility] Comment on above: Essential (primary) hypertension; Cardiac murmur, unspecified Start: 03-12-2024 ambulatory [facility] Start: 03-12-2024 End: 03-12-2024 Subsequent hospital visit by physician Jerome Perdomo MD Work Phone: [facility] Comment on above: Lymphedema Start: 03-04-2024 End: 03-04-2024 Office outpatient visit 15 minutes Anjana Meadows MOTORCYCLE REPAIRER [employer] Work Phone: [facility] Comment on above: Vaginal discharge (P rimary Dx); Endometrial cancer (CMS/HCC) (HCC); Obesity with body mass index greater than 30; Lymphedema; Malignant neoplasm of body of uterus, unspecified site (HCC) Start: 02-28-2024 End: 05-29-2024 Transcribe Orders Christy Rizzo MD Work Phone: [facility] Comment on above: Essential (primary) hypertension (Primary Dx); Cardiac murmur, unspecified Start: 02-27-2024 End: 02-27-2024 Office outpatient visit 15 minutes Jerome Perdomo MD Work Phone: [facility] Comment on above: Lymphedema (Primary Dx) Start: 02-13-2024 ambulatory [facility] Start: 02-13-2024 End: 02-13-2024 Subsequent hospital visit by physician Jerome Perdomo MD Work Phone: [facility] Comment on above: Lymphedema of both l ower extremities Start: 01-30-2024 End: 01-30-2024 Office outpatient visit 15 minutes Jerome Perdomo MD Work Phone: [facility] Comment on above: Lymphedema of both l ower extremities (Primary Dx) Start: 01-17-2024 End: 01-17-2024 Telephone encounter Christy Rizzo MD Work Phone: [facility] Clinical Communication Start: 01-16-2024 End: 01-16-2024 Subsequent hospital visit by physician Jerome Perdomo MD Work Phone: [facility] Comment on above: Lymphedema Start: 01-16-2024 ambulatory [facility] Start: 2024 End: 2024 Office outpatient visit 15 minutes Jerome Perdomo MD Work Phone: [facility] Comment on above: Lymphedema (Primary Dx) Start: 12-31-2023 Telephone encounter Anjana Butts CNP Work Phone: [facility] Start: 12-20-2023 End: 12-20-2023 Subsequent hospital visit by physician Jerome Perdomo MD Work Phone: [facility] Comment on above: Lymphedema Start: 12-19-2023 Telephone encounter Jaqueline Velasquez ashu 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 Work Phone: [facility] Start: 12-19-2023 ambulatory [facility] Start: 12-05-2023 End: 12-05-2023 Office outpatient visit 15 minutes Jerome Perdomo MD Work Phone: [facility] Comment on above: Lymphedema (Primary Dx) Start: 12-04-2023 End: 12-04-2023 Subsequent hospital visit by physician Anjana Meadows 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 Work Phone: [facility] Comment on above: Endometrial cancer ( CMS/HCC) (HCC) Start: 11-21-2023 End: 11-21-2023 Subsequent hospital visit by physician Jerome Perdomo MD Work Phone: [facility] Comment on above: Lymphedema of both l ower extremities Start: 11-21-2023 ambulatory [facility] Start: 11-15-2023 Telephone encounter Cuauhtemoc Stubbs MD Work Phone: [facility] Start: 11-13-2023 End: 11-13-2023 ambulatory MASON FAULKNER Facility:[facility] Start: 11-13-2023 End: 11-13-2023 Patient encounter procedure Mason Faulkner MD Work Phone: [facility] Comment on above: Hypertensive retinop athy, bilateral (Primary Dx); 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 macular edema, with long-term current use of insulin ([facility]) Start: 11-07-2023 End: 11-07-2023 Office outpatient visit 15 minutes Jerome Perdomo MD Work Phone: [facility] Comment on above: Lymphedema (Primary Dx) Start: 11-05-2023 Telephone encounter Cuauhtemoc Stubbs MD Work Phone: [facility] Start: 11-02-2023 End: 11-02-2023 Office outpatient visit 25 minutes Lyric Wayne Cruz 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 Work Phone: [facility] Comment on above: Type 2 diabetes devon itus with hyperglycemia, with long-term current use of insulin (HCC) (Primary Dx); Primary hypertension; Hyperlipidemia associated with type 2 diabetes mellitus (HCC) (HCC); Class 3 severe obesity due to excess calories with serious comorbidity and body mass index (BMI) of 45.0 to 49.9 in adult (HCC); Acquired hypothyroidism; Insulin resistance; 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 and macular edema, with long-term current use of insulin (HCC) Start: 11-01-2023 End: 11-01-2023 Office outpatient visit 15 minutes Anjana Meadows 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 Work Phone: [facility] Comment on above: Endometrial cancer ( CMS/HCC) (HCC) (Primary Dx); Malignant neoplasm of body of uterus, unspecified site (HCC) Start: 10-26-2023 End: 10-26-2023 ambulatory MOSES ACEVEDO Facility:[facility] Start: 10-26-2023 End: 10-26-2023 Patient encounter procedure Moses Acevedo MD Work Phone: [facility] Comment on above: Primary open angle g laucoma of both eyes, mild stage (Primary Dx); 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; Dry eye syndrome of bilateral lacrimal glands; Cortical cataract of both eyes Start: 10-24-2023 ambulatory KIT [facility] Start: 10-24-2023 End: 10-24-2023 Subsequent hospital visit by physician Jerome Perdomo MD Work Phone: [facility] Comment on above: Arrived Start: 10-10-2023 End: 10-10-2023 Subsequent hospital visit by physician Jerome Perdomo MD Work Phone: [facility] Comment on above: Lymphedema (Primary Dx); Generalized edema Start: 09-30-2023 Refill Bridget Alcantara MD Work Phone: [facility] Start: 09-26-2023 ambulatory [facility] Start: 09-26-2023 End: 09-26-2023 Office outpatient visit 15 minutes Jerome Perdomo MD Work Phone: [facility] Comment on above: Lymphedema (Primary Dx) Start: 09-13-2023 End: 09-13-2023 Subsequent hospital visit by physician Jerome Perdomo MD Work Phone: [facility] Comment on above: Lymphedema Start: 09-12-2023 ambulatory [facility] Start: 09-11-2023 End: 09-11-2023 Office outpatient visit 15 minutes Ino He MD Work Phone: [facility] Comment on above: Endometrial cancer ( CMS/HCC) (HCC) (Primary Dx) Start: 08-29-2023 ambulatory [facility] Start: 08-29-2023 End: 08-29-2023 Office outpatient visit 15 minutes Jerome Perdomo MD Work Phone: [facility] Comment on above: Lymphedema (Primary Dx) Start: 08-27-2023 Telephone encounter Germania Smith 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 Work Phone: [facility] Start: 08-15-2023 End: 08-15-2023 Subsequent hospital visit by physician Jerome Perdomo MD Work Phone: [facility] Comment on above: Lymphedema Start: 08-01-2023 ambulatory [facility] Start: 08-01-2023 End: 08-01-2023 Office outpatient visit 15 minutes Jerome Perdomo MD Work Phone: [facility] Comment on above: Lymphedema (Primary Dx) Start: 07-18-2023 End: 07-18-2023 Subsequent hospital visit by physician Jerome Perdomo MD Work Phone: [facility] Comment on above: Lymphedema Start: 07-04-2023 End: 07-04-2023 Subsequent hospital visit by physician Jerome Perdomo MD Work Phone: [facility] Comment on above: Lymphedema Start: 07-04-2023 ambulatory [facility] Start: 06-20-2023 End: 06-20-2023 Office outpatient visit 15 minutes Jerome Perdomo MD Work Phone: [facility] Comment on above: Lymphedema (Primary Dx) Start: 06-06-2023 End: 06-06-2023 Subsequent hospital visit by physician Jerome Perdomo MD Work Phone: [facility] Comment on above: Lymphedema Start: 06-04-2023 ambulatory [facility] Start: 05-23-2023 End: 05-23-2023 Office outpatient visit 15 minutes Jerome Perdomo MD Work Phone: [facility] Comment on above: Lymphedema (Primary Dx) Start: 05-09-2023 End: 05-09-2023 Office outpatient visit 25 minutes Bridget Alcantara MD Work Phone: [facility] Comment on above: 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); Type 2 diabetes mellitus with hyperglycemia, with long-term current use of insulin (HCC); Mixed hyperlipidemia; Primary hypertension Start: 05-09-2023 Telephone encounter Bridget rangel MD Work Phone: [facility] Comment on above: OTHER Start: 05-08-2023 End: 05-08-2023 Subsequent hospital visit by physician Jerome Perdomo MD Work Phone: [facility] Comment on above: Lymphedema (Primary Dx) Start: 04-25-2023 End: 04-25-2023 Office outpatient visit 15 minutes Jerome Perdomo MD Work Phone: [facility] Comment on above: Lymphedema (Primary Dx) Start: 04-17-2023 End: 04-17-2023 Subsequent hospital visit by physician Jerome Perdomo MD Work Phone: [facility] Comment on above: Lymphedema Start: 04-11-2023 End: 04-11-2023 Office outpatient visit 15 minutes Jerome Perdomo MD Work Phone: [facility] Comment on above: Non-pressure chronic ulcer left lower leg, 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) (Primary Dx) Start: 04-10-2023 End: 04-10-2023 Patient encounter procedure Moses Acevedo MD Work Phone: [facility] Comment on above: Primary open angle g laucoma of both eyes, mild stage (Primary Dx); 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 and macular edema, without long-term current use of insulin (HCC); 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; Dry eye syndrome of bilateral lacrimal glands; Refractive error; Dermatochalasis of upper and lower eyelids of both eyes Start: 04-09-2023 End: 04-09-2023 Subsequent hospital visit by physician Jerome Perdomo MD Work Phone: [facility] Comment on above: Non-pressure chronic ulcer left lower leg, 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) (Primary Dx) Non-pressure chronic ulcer left lower leg, 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) (Primary Dx); Lymphedema Start: 03-28-2023 End: 03-28-2023 Subsequent hospital visit by physician Jerome Perdomo MD Work Phone: [facility] Comment on above: Lymphedema Start: 03-23-2023 End: 03-23-2023 Clinical Support [facility] Endo Patient Accounts Specialist [facility]ocr[facility] Comment on above: Uncontrolled type 2 diabetes mellitus with hyperglycemia, with long-term current use of insulin (HCC) Start: 03-14-2023 End: 03-14-2023 Office outpatient visit 15 minutes Jerome Perdomo MD Work Phone: [facility] Comment on above: Lymphedema (Primary Dx) Start: 03-02-2023 End: 03-02-2023 Office outpatient visit 15 minutes Ino He MD Work Phone: [facility] Comment on above: Endometrial cancer ( CMS/HCC) (HCC) (Primary Dx) Start: 02-28-2023 End: 02-28-2023 Subsequent hospital visit by physician Jerome Perdomo MD Work Phone: [facility] Comment on above: Arrived Start: 02-14-2023 End: 02-14-2023 Office outpatient visit 15 minutes Jerome Perdomo MD Work Phone: [facility] Comment on above: Lymphedema (Primary Dx) Start: 01-31-2023 End: 01-31-2023 Subsequent hospital visit by physician Jerome Perdomo MD Work Phone: [facility] Comment on above: Lymphedema; Generalized edema Start: 01-19-2023 End: 01-19-2023 Office outpatient visit 25 minutes Lyric Cruz APRN - [facility] Work Phone: [facility] Comment on above: Type 2 diabetes devon itus with hyperglycemia, with long-term current use of insulin (CMS/HCC) (HCC) (Primary Dx); 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 without macular edema, with long-term current use of insulin (HCC); Primary hypertension; Hyperlipidemia associated with type 2 diabetes mellitus (HCC); Class 3 severe obesity due to excess calories with serious comorbidity and body mass index (BMI) of 45.0 to 49.9 in adult ([facility]); Acquired hypothyroidism; Insulin resistance Start: 01-17-2023 End: 01-17-2023 Office outpatient visit 15 minutes Jerome Perdomo MD Work Phone: [facility] Comment on above: Lymphedema (Primary Dx) Start: 01-03-2023 End: 01-03-2023 Subsequent hospital visit by physician Jerome Perdomo MD Work Phone: [facility] Comment on above: Lymphedema Start: 01-03-2023 End: 01-03-2023 Subsequent hospital visit by physician Jerome Perdomo MD Work Phone: [facility] Comment on above: Lymphedema Start: 12-20-2022 End: 12-20-2022 Office outpatient visit 15 minutes Jerome Perdomo MD Work Phone: [facility] Comment on above: Lymphedema (Primary Dx) Start: 11-24-2022 End: 11-24-2022 Subsequent hospital visit by physician Jerome Perdomo MD Work Phone: [facility] Comment on above: Lymphedema Start: 11-22-2022 End: 11-22-2022 Office outpatient visit 25 minutes Jerome Perdomo MD Work Phone: [facility] Comment on above: Lymphedema (Primary Dx); Generalized edema Start: 11-08-2022 End: 11-08-2022 Subsequent hospital visit by physician Jerome Perdomo MD Work Phone: [facility] Comment on above: Lymphedema Start: 11-03-2022 End: 11-03-2022 Office outpatient visit 15 minutes Jaqueline Butts CNP Work Phone: [facility] Comment on above: Endometrial cancer ( CMS/HCC) (HCC) (Primary Dx); Malignant neoplasm of body of uterus, unspecified site (HCC) Start: 10-25-2022 End: 10-25-2022 Office outpatient visit 15 minutes Jerome Perdomo MD Work Phone: [facility] Comment on above: Lymphedema (Primary Dx) Start: 10-11-2022 End: 10-11-2022 Subsequent hospital visit by physician Jerome Perdomo MD Work Phone: [facility] Comment on above: 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) Start: 10-06-2022 Telephone encounter Lyric Martinez 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 Work Phone: [facility] Comment on above: Results (Recent lab results from pcp) Start: 09-27-2022 End: 09-27-2022 Office outpatient visit 15 minutes Jerome Perdoom MD Work Phone: [facility] Comment on above: Lymphedema (Primary Dx) Start: 09-13-2022 End: 09-13-2022 Office outpatient visit 15 minutes Ino He MD Work Phone: [facility] Comment on above: Endometrial cancer ( CMS/HCC) (HCC) (Primary Dx) Start: 09-13-2022 End: 09-13-2022 Subsequent hospital visit by physician Jerome Perdomo MD Work Phone: [facility] Comment on above: Lymphedema [I89.0 (I [id number]-CM)] Start: 08-30-2022 End: 08-30-2022 Office outpatient visit 15 minutes Jerome Perdomo MD Work Phone: [facility] Comment on above: Lymphedema (Primary Dx) Start: 08-02-2022 End: 08-02-2022 Subsequent hospital visit by physician Jerome Perdomo MD Work Phone: [facility] Comment on above: Lymphedema (Primary Dx) Start: 07-31-2022 Telephone encounter Lyric Martinez 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 Work Phone: [facility] [place] Comment on above: Forms/questionnaires Start: 05-10-2022 ambulatory Jeromeniurka Perdomo [facility] Start: 05-10-2022 End: 05-10-2022 Subsequent hospital visit by physician Haile Golden MD Work Phone: [facility] Start: 04-26-2022 End: 04-26-2022 Subsequent hospital visit by physician [facility] Start: 04-12-2022 End: 04-12-2022 Subsequent hospital visit by physician Haile Golden MD [facility] Start: 04-06-2022 End: 04-06-2022 Patient encounter procedure Moses Acevedo MD Work Phone: [facility] Comment on above: Type 2 diabetes devon itus with both eyes affected by mild nonproliferative retinopathy without macular edema, with long-term current use of insulin (HCC) (Primary Dx); Primary open angle glaucoma of both eyes, mild stage; 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 Start: 03-01-2022 ambulatory UNKNOWN PROVIDER [facility] Start: 03-01-2022 End: 03-01-2022 Subsequent hospital visit by physician Ino He MD Work Phone: [facility] Start: 03-01-2022 End: 03-01-2022 Subsequent hospital visit by physician Haile Golden Work Phone: [facility] Start: 02-22-2022 End: 02-22-2022 Subsequent hospital visit by physician Haile Golden Work Phone: [facility] Start: 02-08-2022 End: 02-08-2022 Subsequent hospital visit by physician Haile Golden Work Phone: [facility] Start: 01-25-2022 End: 01-25-2022 Subsequent hospital visit by physician Haile Golden Work Phone: [facility] Start: 01-11-2022 End: 01-11-2022 Subsequent hospital visit by physician Haile Golden Work Phone: 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 Start: 12-14-2021 End: 12-14-2021 Subsequent hospital visit by physician Haile Golden Work Phone: 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 Start: 12-02-2021 Telephone encounter Moses Acevedo MD Work Phone: [facility] Comment on above: Appointment (sx) Preparations For Lisa kareem (iol od) Start: 11-30-2021 End: 11-30-2021 Patient encounter procedure Moses Acevedo MD Work Phone: [facility] Comment on above: Pseudophakia of left eye (Primary Dx); Combined forms of age-related cataract of both eyes Start: 11-28-2021 End: 11-28-2021 Subsequent hospital visit by physician Haile Golden Work Phone: 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 Start: 10-26-2021 End: 10-26-2021 Subsequent hospital visit by physician Haile Golden Work Phone: [facility] Start: 10-21-2021 Telephone encounter Moses Acevedo MD Work Phone: [facility] Comment on above: Appointment (a-scan reminder call) Start: 10-12-2021 End: 10-12-2021 Subsequent hospital visit by physician Haile Golden Work Phone: [facility] Start: 09-28-2021 End: 09-28-2021 Subsequent hospital visit by physician Haile Golden Work Phone: [facility] [place] [facility] Start: 09-01-2021 ambulatory UNKNOWN PROVIDER [facility] Start: 08-31-2021 End: 08-31-2021 Subsequent hospital visit by physician Haile Golden Work Phone: [facility] [place] [facility] Start: 06-29-2021 End: 06-29-2021 Subsequent hospital visit by physician Haile Golden Work Phone: [facility] [place] [facility] Start: 06-22-2021 End: 06-22-2021 Subsequent hospital visit by physician Haile Godlen Work Phone: [facility] [place] [facility] Start: 06-15-2021 End: 06-15-2021 Subsequent hospital visit by physician Haile Golden Work Phone: [facility] [place] [facility] Start: 06-08-2021 End: 06-08-2021 Subsequent hospital visit by physician Haile Golden Work Phone: [facility] [place] [facility] Start: 06-01-2021 End: 06-01-2021 Subsequent hospital visit by physician Haile Golden Work Phone: [facility] [place] [facility] Start: 05-25-2021 End: 05-25-2021 Subsequent hospital visit by physician Haile Golden Work Phone: [facility] [place] [facility] Start: 05-18-2021 End: 05-18-2021 Subsequent hospital visit by physician Haile Golden Work Phone: [facility] [place] [facility] Start: 05-04-2021 End: 05-04-2021 Subsequent hospital visit by physician Haile Golden Work Phone: [facility] [place] [facility] Start: 04-27-2021 End: 04-27-2021 Subsequent hospital visit by physician Haile Golden Work Phone: [facility] [place] [facility] Start: 04-13-2021 End: 04-13-2021 Subsequent hospital visit [facility] Start: 03-30-2021 End: 03-30-2021 Subsequent hospital visit by physician Haile Golden Work Phone: [facility] Start: 03-23-2021 End: 03-23-2021 Subsequent hospital visit by physician Haile Golden Work Phone: [facility] Start: 03-09-2021 End: 03-09-2021 Subsequent hospital visit by physician Haile Golden Work Phone: [facility] Start: 03-02-2021 End: 03-02-2021 Subsequent hospital visit by physician Haile Golden Work Phone: [facility] Start: 02-23-2021 End: 02-23-2021 Subsequent hospital visit by physician Haile Golden [facility] Start: 02-16-2021 End: 02-16-2021 Subsequent hospital visit by physician Haile Golden Work Phone: [facility] Start: 02-02-2021 End: 02-02-2021 Subsequent hospital visit by physician Haile Golden Work Phone: [facility] Start: 01-28-2021 End: 01-28-2021 Subsequent hospital visit by physician Ino He MD Work Phone: [facility] Start: 01-26-2021 End: 01-26-2021 Subsequent hospital visit by physician Haile Golden Work Phone: [facility] Start: 01-25-2021 End: 01-25-2021 Subsequent hospital visit by physician Ino He MD Work Phone: [facility] Start: 01-21-2021 End: 01-21-2021 Subsequent hospital visit by physician Ino He MD Work Phone: [facility] Start: 01-19-2021 End: 01-19-2021 Subsequent hospital visit by physician Haile Golden Work Phone: [facility] Start: 01-18-2021 End: 01-18-2021 Subsequent hospital visit by physician Ino He MD Work Phone: [facility] Start: 01-10-2021 End: 01-10-2021 Subsequent hospital visit by physician Ino He MD Work Phone: [facility] Start: 01-05-2021 End: 01-05-2021 Subsequent hospital visit by physician Haile Golden Work Phone: [facility] Start: 12-31-2020 End: 12-31-2020 Subsequent hospital visit by physician Ino He MD Work Phone: [facility] Start: 12-30-2020 End: 12-31-2020 Subsequent hospital visit by physician Ino He MD Work Phone: [facility] Start: 12-29-2020 End: 12-29-2020 Subsequent hospital visit by physician Ino He MD Work Phone: [facility] Start: 12-29-2020 End: 12-29-2020 Subsequent hospital visit by physician Haile Golden Work Phone: [facility] Start: 12-27-2020 End: 12-27-2020 Subsequent hospital visit by physician Ino He MD Work Phone: [facility] Start: 12-24-2020 End: 12-24-2020 Subsequent hospital visit by physician Ino He MD Work Phone: [facility] Start: 12-23-2020 End: 12-23-2020 Subsequent hospital visit by physician Ino He MD Work Phone: [facility] Start: 12-22-2020 End: 12-22-2020 Subsequent hospital visit by physician Ino He MD Work Phone: [facility] Start: 12-22-2020 End: 12-22-2020 Subsequent hospital visit by physician Haile Golden Work Phone: [facility] Start: 12-15-2020 End: 12-15-2020 Subsequent hospital visit by physician Haile Golden Work Phone: [facility] Start: 12-14-2020 End: 12-14-2020 Subsequent hospital visit by physician Ino He MD Work Phone: [facility] Start: 12-10-2020 End: 12-10-2020 Subsequent hospital visit by physician Ino He MD Work Phone: [facility] Start: 12-09-2020 End: 12-09-2020 Subsequent hospital visit by physician Ino He MD Work Phone: [facility] Start: 12-08-2020 End: 12-08-2020 Subsequent hospital visit by physician Haile Golden Work Phone: [facility] Start: 12-03-2020 End: 12-03-2020 Subsequent hospital visit by physician Ino He MD Work Phone: [facility] Start: 12-02-2020 End: 12-03-2020 Subsequent hospital visit by physician Ino He MD Work Phone: [facility] Start: 12-01-2020 End: 12-01-2020 Subsequent hospital visit by physician Haile Golden Work Phone: [facility] Start: 11-30-2020 End: 11-30-2020 Subsequent hospital visit by physician Ino He MD Work Phone: [facility] Start: 11-29-2020 End: 11-29-2020 Subsequent hospital visit by physician Ino He MD Work Phone: [facility] Start: 11-24-2020 End: 11-24-2020 Subsequent hospital visit by physician Haile Golden [facility] Start: 11-23-2020 End: 11-23-2020 Subsequent hospital visit by physician Ino He MD Work Phone: [facility] Start: 11-17-2020 End: 11-17-2020 Subsequent hospital visit by physician Haile Golden Work Phone: [facility] Start: 11-10-2020 End: 11-10-2020 Subsequent hospital visit by physician Haile Golden Work Phone: [facility] Start: 11-03-2020 End: 11-03-2020 Subsequent hospital visit by physician Haile Golden Work Phone: [facility] Start: 10-27-2020 End: 10-27-2020 Subsequent hospital visit by physician Ino He Work Phone: [address] Comment on above: Malignant neoplasm o f endometrium (HCC) Start: 10-22-2020 End: 10-22-2020 Subsequent hospital visit by physician Ino He Work Phone: [facility] Start: 09-30-2020 End: 10-01-2020 Subsequent hospital visit by physician Cuauhtemoc Stubbs Work Phone: [facility] Comment on above: Post-operative state (Primary Dx); Type 2 diabetes mellitus with hyperosmolarity without coma, 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); 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) Start: 09-23-2020 End: 09-23-2020 Subsequent hospital visit by physician Cuauhtemoc Stubbs Work Phone: [facility] Pre-Admit Testing Comment on above: Arrived Start: 09-22-2020 End: 09-22-2020 Subsequent hospital visit by physician Haile Golden Work Phone: [facility] Start: 09-15-2020 End: 09-15-2020 Subsequent hospital visit by physician Haile Golden Work Phone: [facility] Start: 09-08-2020 End: 09-08-2020 Subsequent hospital visit by physician Haile Golden Work Phone: [facility] Start: 09-01-2020 End: 09-01-2020 Subsequent hospital visit by physician Haile Golden Work Phone: [facility] Start: 08-25-2020 End: 08-25-2020 Subsequent hospital visit by physician Haile Golden Work Phone: [facility] Start: 08-04-2020 End: 08-04-2020 Subsequent hospital visit by physician Haile Golden Work Phone: [facility] Start: 07-21-2020 End: 07-21-2020 Subsequent hospital visit by physician Haile Golden Work Phone: [facility] Start: 07-14-2020 End: 07-14-2020 Subsequent hospital visit by physician Haile Golden Work Phone: [facility] Start: 07-07-2020 End: 07-07-2020 Subsequent hospital visit by physician Haile Golden Work Phone: [facility] Start: 06-30-2020 End: 06-30-2020 Subsequent hospital visit by physician Haile Golden Work Phone: [facility] Start: 06-23-2020 End: 06-23-2020 Subsequent hospital visit by physician Haile Golden Work Phone: [facility] Start: 06-16-2020 End: 06-16-2020 Subsequent hospital visit by physician Haile Golden Work Phone: [facility] Start: 06-09-2020 End: 06-09-2020 Subsequent hospital visit by physician Haiel Golden Work Phone: [facility] Start: 06-02-2020 End: 06-02-2020 Subsequent hospital visit by physician Haile Golden Work Phone: [facility] Start: 05-31-2020 End: 05-31-2020 Subsequent hospital visit by physician Haile Golden Work Phone: [facility] Start: 05-26-2020 End: 05-26-2020 Subsequent hospital visit by physician Haile Golden Work Phone: [facility] Start: 05-19-2020 End: 05-19-2020 Subsequent hospital visit by physician Haile Golden Work Phone: [facility] Start: 05-12-2020 End: 05-12-2020 Subsequent hospital visit by physician Haile Golden Work Phone: [facility] Start: 05-05-2020 End: 05-05-2020 Subsequent hospital visit by physician Haile Golden Work Phone: [facility] Start: 04-28-2020 End: 04-28-2020 Subsequent hospital visit by physician Haile Golden Work Phone: [facility] Start: 04-21-2020 End: 04-21-2020 Subsequent hospital visit by physician Haile Golden Work Phone: [facility] Start: 04-14-2020 End: 04-14-2020 Subsequent hospital visit by physician Haile Golden Work Phone: [facility] Start: 04-07-2020 End: 04-07-2020 Subsequent hospital visit by physician Haile Golden Work Phone: [facility] Start: 04-01-2020 End: 04-01-2020 Subsequent hospital visit by physician Clare Bui Work Phone: [facility] Start: 03-24-2020 End: 03-24-2020 Subsequent hospital visit by physician Haile Golden Work Phone: [facility] Start: 03-17-2020 End: 03-17-2020 Subsequent hospital visit by physician Haile Golden Work Phone: [facility] Start: 03-10-2020 End: 03-10-2020 Subsequent hospital visit by physician Haile Golden Work Phone: [facility] Start: 03-03-2020 End: 03-03-2020 Subsequent hospital visit by physician Haile Golden Work Phone: [facility] Start: 02-25-2020 End: 02-25-2020 Subsequent hospital visit by physician Haile Golden Work Phone: [facility] Start: 02-18-2020 End: 02-18-2020 Subsequent hospital visit by physician Haile Golden Work Phone: [facility] Start: 02-11-2020 End: 02-11-2020 Subsequent hospital visit by physician Haile Golden Work Phone: [facility] Start: 02-04-2020 End: 02-04-2020 Subsequent hospital visit by physician Haile Golden Work Phone: [facility] Start: 01-28-2020 End: 01-28-2020 Subsequent hospital visit by physician Haile Golden Work Phone: [facility] Start: 01-21-2020 End: 01-21-2020 Subsequent hospital visit by physician Haile Golden Work Phone: [facility] Start: 01-07-2020 End: 01-07-2020 Subsequent hospital visit by physician Haile Golden Work Phone: [facility] Start: 12-30-2019 End: 12-30-2019 Subsequent hospital visit by physician Haile Golden Work Phone: [facility] Start: 12-24-2019 End: 12-24-2019 Subsequent hospital visit by physician Haile Golden Work Phone: [facility] Start: 12-10-2019 End: 12-10-2019 Subsequent hospital visit by physician Haile Golden Work Phone: [facility] Start: 12-03-2019 End: 12-03-2019 Subsequent hospital visit by physician Haile Golden Work Phone: [facility] Start: 11-26-2019 End: 11-26-2019 Subsequent hospital visit by physician Haile Golden Work Phone: [facility] Start: 11-12-2019 End: 11-12-2019 Subsequent hospital visit by physician Haile Golden Work Phone: [facility] Start: 11-05-2019 End: 11-05-2019 Subsequent hospital visit by physician Haile Golden Work Phone: [facility] Start: 10-29-2019 End: 10-29-2019 Subsequent hospital visit by physician Haile Golden Work Phone: [facility] Start: 10-22-2019 End: 10-22-2019 Subsequent hospital visit by physician Haile Golden Work Phone: [facility] Start: 10-08-2019 End: 10-08-2019 Subsequent hospital visit by physician Haile Golden Work Phone: [facility] Start: 10-01-2019 End: 10-01-2019 Subsequent hospital visit by physician Haile Golden Work Phone: [facility] Start: 09-24-2019 End: 09-24-2019 Subsequent hospital visit by physician Haile Golden Work Phone: [facility] Start: 09-19-2019 End: 09-19-2019 Subsequent hospital visit by physician Haile Golden Work Phone: [facility] Start: 09-10-2019 End: 09-10-2019 Subsequent hospital visit by physician Haiel Golden Work Phone: [facility] Start: 09-09-2019 End: 09-09-2019 Subsequent hospital visit by physician Clare Bui Work Phone: [facility] Start: 09-03-2019 End: 09-03-2019 Subsequent hospital visit by physician Haile Golden Work Phone: [facility] Start: 08-27-2019 End: 08-27-2019 Subsequent hospital visit by physician Haile Golden Work Phone: [facility] Start: 08-13-2019 End: 08-13-2019 Subsequent hospital visit by physician Haile Golden Work Phone: [facility] Start: 08-06-2019 End: 08-06-2019 Subsequent hospital visit by physician Haile Golden Work Phone: [facility] Start: 07-30-2019 End: 07-30-2019 Subsequent hospital visit by physician Haile Golden Work Phone: [facility] Start: 07-21-2019 End: 07-21-2019 Subsequent hospital visit by physician Haile Golden Work Phone: [facility] Start: 07-14-2019 End: 07-14-2019 Subsequent hospital visit by physician Haile Golden Work Phone: [facility] Start: 06-25-2019 End: 06-25-2019 Subsequent hospital visit by physician Haile Golden Work Phone: [facility] Start: 06-18-2019 End: 06-18-2019 Subsequent hospital visit by physician Haile Golden Work Phone: [facility] Start: 06-04-2019 End: 06-04-2019 Subsequent hospital visit by physician Haile Golden Work Phone: [facility] Start: 05-28-2019 End: 05-28-2019 Subsequent hospital visit by physician Haile Golden Work Phone: [facility] Start: 05-16-2019 End: 05-16-2019 Subsequent hospital visit by physician Haile Golden Work Phone: [facility] Start: 05-09-2019 End: 05-09-2019 Subsequent hospital visit by physician Haile Golden Work Phone: [facility] Start: 05-02-2019 End: 05-02-2019 Subsequent hospital visit by physician Haile Golden Work Phone: [facility] Start: 04-25-2019 End: 04-25-2019 Subsequent hospital visit by physician Haile Golden Work Phone: [facility] Start: 04-11-2019 End: 04-11-2019 Subsequent hospital visit by physician Haile Golden Work Phone: [facility] Start: 04-04-2019 End: 04-04-2019 Subsequent hospital visit by physician Haile Golden Work Phone: [facility] Start: 04-03-2019 End: 04-03-2019 Subsequent hospital visit by physician Jorge Alberto Palumbo Work Phone: [facility] Start: 03-28-2019 End: 03-28-2019 Subsequent hospital visit by physician Haile Golden Work Phone: [facility] Start: 03-14-2019 End: 03-14-2019 Subsequent hospital visit by physician Haile Golden Work Phone: [facility] Start: 03-07-2019 End: 03-07-2019 Subsequent hospital visit by physician Haile Golden Work Phone: [facility] Start: 02-28-2019 End: 02-28-2019 Subsequent hospital visit by physician Haile Golden Work Phone: [facility] Procedures Date Procedure Procedure Detail Performing Clinician Start: 05-19-2025 Glucose quantitative blood xcpt reagent strip Cuauhtemoc C Sylvester DO Work Phone: Start: 05-19-2025 Glucose quantitative blood xcpt reagent strip Cuauhtemoc C Sylvester DO Work Phone: Start: 05-19-2025 Glucose quantitative blood xcpt reagent strip Cuauhtemoc C Sylvester DO Work Phone: Start: 05-19-2025 Basic metabolic pane l calcium total Alber Jeffery DO Work Phone: Start: 05-18-2025 Glucose quantitative blood xcpt reagent strip Alber Jeffery DO Work Phone: Start: 05-18-2025 Glucose quantitative blood xcpt reagent strip Alber Jeffery DO Work Phone: Start: 05-18-2025 Glucose quantitative blood xcpt reagent strip Alber Jeffery DO Work Phone: Start: 05-18-2025 Glucose quantitative blood xcpt reagent strip Alber Jeffery DO Work Phone: Start: 05-18-2025 Basic metabolic pane l calcium total Alber Jeffery DO Work Phone: Start: 05-17-2025 Glucose quantitative blood xcpt reagent strip Alber Jeffery DO Work Phone: Start: 05-17-2025 Glucose quantitative blood xcpt reagent strip Alber Jeffery DO Work Phone: Start: 05-17-2025 Glucose quantitative blood xcpt reagent strip Alber Jeffery DO Work Phone: Start: 05-17-2025 Glucose quantitative blood xcpt reagent strip Alber Jeffery DO Work Phone: Start: 05-17-2025 Blood count complete auto&auto difrntl wbc Alber Jeffery DO Work Phone: Start: 05-17-2025 Basic metabolic pane l calcium total Alber Jeffery DO Work Phone: Start: 05-16-2025 Glucose quantitative blood xcpt reagent strip Alber Jeffery DO Work Phone: Start: 05-16-2025 Glucose quantitative blood xcpt reagent strip Alber Jeffery DO Work Phone: Start: 05-16-2025 Glucose quantitative blood xcpt reagent strip Alber Jeffery DO Work Phone: Start: 05-16-2025 Glucose quantitative blood xcpt reagent strip Alber Jeffery DO Work Phone: Start: 05-16-2025 Basic metabolic pane l calcium total Alber Jeffery DO Work Phone: Start: 05-15-2025 Glucose quantitative blood xcpt reagent strip Alber Jeffery DO Work Phone: Start: 05-15-2025 Glucose quantitative blood xcpt reagent strip Alber Jeffery DO Work Phone: Start: 05-15-2025 Glucose quantitative blood xcpt reagent strip Alber Jeffery DO Work Phone: Start: 05-15-2025 Glucose quantitative blood xcpt reagent strip Alber Jeffery DO Work Phone: Start: 05-15-2025 Basic metabolic pane l calcium total Alber Jeffery DO Work Phone: Start: 05-14-2025 Glucose quantitative blood xcpt reagent strip Laber Jeffery DO Work Phone: Start: 05-14-2025 Glucose quantitative blood xcpt reagent strip Alber Jeffery DO Work Phone: Start: 05-14-2025 Glucose quantitative blood xcpt reagent strip Alber Jeffery DO Work Phone: Start: 05-14-2025 Glucose quantitative blood xcpt reagent strip Alber Jeffery DO Work Phone: Start: 05-14-2025 Basic metabolic pane l calcium total Alber Jeffery DO Work Phone: Start: 05-13-2025 Glucose quantitative blood xcpt reagent strip Alber Jeffery DO Work Phone: Start: 05-13-2025 Glucose quantitative blood xcpt reagent strip Alber Jeffery DO Work Phone: Start: 05-13-2025 Ecg routine ecg w/le ast 12 lds trcg only w/o i&r Alber Jeffery DO Work Phone: Start: 05-13-2025 Blood count complete auto&auto difrntl wbc Alber Jeffery DO Work Phone: Start: 05-13-2025 Glucose quantitative blood xcpt reagent strip Alber Jeffery DO Work Phone: Start: 05-13-2025 Glucose quantitative blood xcpt reagent strip Alber Jeffery DO Work Phone: Start: 05-13-2025 Inf agent det nuclei c acid clostridium amp probe Grant Meza MD Work Phone: Start: 05-12-2025 Glucose quantitative blood xcpt reagent strip Alber Jeffery DO Work Phone: Start: 05-12-2025 Glucose quantitative blood xcpt reagent strip Alber Jeffery DO Work Phone: Start: 05-12-2025 Glucose quantitative blood xcpt reagent strip Alber Jeffery DO Work Phone: Start: 05-12-2025 Glucose quantitative blood xcpt reagent strip Alber Jeffery DO Work Phone: Start: 05-12-2025 Assay of lactate Jennifer Taylor DO Work Phone: Start: 05-11-2025 End: 05-11-2025 Comprehensive metabolic panel Jennifer Taylor DO Work Phone: Start: 05-11-2025 Culture bacterial quanttative colony count urine Nettie Meagan DO Work Phone: Start: 05-11-2025 URINE HOLD CUP Nettie Dayne Flores DO Work Phone: Start: 05-11-2025 Glucose quantitative blood xcpt reagent strip Nettie Rhodes DO Work Phone: Start: 05-11-2025 Blood gases any comb ination ph pco2 po2 co2 hco3 Manish Light MD Work Phone: Start: 05-11-2025 End: 05-11-2025 Bacteria identified in Blood by Culture Nettie Rhodes DO Work Phone: Start: 05-11-2025 Comprehensive metabo lic panel Nettie Rhodes DO Work Phone: Start: [address] atten uation skull base mid-thigh Cuauhtemoc Stubbs MD Work Phone: Start: 12-22-2024 Ct guidance needle placement Cuauhtemoc Stubbs MD Work Phone: Start: 12-22-2024 Blood count complete automated Tha Hamm MD Other Phone: Start: 12-08-2024 Follow-up visit CUAUHTEMOC STUBBS Start: 11-05-2024 Glucose quantitative blood xcpt reagent strip Leanna Correia MD Work Phone: Start: 11-05-2024 Basic metabolic pane l calcium total Leanna Correia MD Work Phone: Start: 11-04-2024 Glucose quantitative blood xcpt reagent strip Leanna Correia MD Work Phone: Start: 11-04-2024 Glucose quantitative blood xcpt reagent strip Leanna Correia MD Work Phone: Start: 11-04-2024 Glucose quantitative blood xcpt reagent strip Leanna Correia MD Work Phone: Start: 11-04-2024 Glucose quantitative blood xcpt reagent strip Leanna Correia MD Work Phone: Start: 11-04-2024 Blood count complete automated Jeremiah Coffman NP Work Phone: Start: 11-03-2024 Glucose quantitative blood xcpt reagent strip Rock Guzmán MD Work Phone: Start: 11-03-2024 Glucose quantitative blood xcpt reagent strip Rock Guzmán MD Work Phone: Start: 11-03-2024 Glucose quantitative blood xcpt reagent strip Rock Guzmán MD Work Phone: Start: 11-03-2024 Echo tthrc r-t 2d w/ wom-mode compl spec&colr d Dominga Martinez MD Work Phone: Start: 11-03-2024 Glucose quantitative blood xcpt reagent strip Rock Guzmán MD Work Phone: Start: 11-03-2024 Basic metabolic pane l calcium total Rock Guzmán MD Work Phone: Start: 11-02-2024 Glucose quantitative blood xcpt reagent strip Rock Guzmán MD Work Phone: Start: 11-02-2024 Glucose quantitative blood xcpt reagent strip Rock Guzmán MD Work Phone: Start: 11-02-2024 Glucose quantitative blood xcpt reagent strip Wilner Kingston MD Work Phone: Start: 11-02-2024 Glucose quantitative blood xcpt reagent strip Wilner Kingston MD Work Phone: Start: 11-02-2024 Ecg routine ecg w/le ast 12 lds trcg only w/o i&r Jeremiah Coffman MARKETING ENGINEER Work Phone: Start: 11-02-2024 Glucose quantitative blood xcpt reagent strip Damon Vu MD Work Phone: Start: 11-02-2024 Us retroperitoneal r eal time w/image complete Wilner Kingston MD Work Phone: Start: 11-02-2024 Assay of ammonia Wilner Kingston MD Work Phone: Start: 11-02-2024 Basic metabolic pane l calcium total Jeremiah Coffman MARKETING ENGINEER Work Phone: Start: 11-02-2024 Manual Differential panel - Blood Jeremiah Coffman MARKETING ENGINEER Work Phone: Start: 11-02-2024 Thyrotropin [Units/v olume] in Serum or Plasma Damno Vu MD Work Phone: Start: 11-02-2024 Ecg routine ecg w/le ast 12 lds trcg only w/o i&r Jeremiah Coffman MARKETING ENGINEER Work Phone: Start: 11-02-2024 Basic metabolic pane l calcium total Damon Vu MD Work Phone: Start: 11-01-2024 End: 11-01-2024 Basic metabolic panel calcium total Damon Vu MD Work Phone: Start: 11-01-2024 End: 11-01-2024 Assay of troponin quantitative Oscar Lucio PA-C Work Phone: Start: 11-01-2024 POCT GLUCOSE METER UNSOLICITED RESULTS Damon Vu MD Work Phone: Start: 11-01-2024 Ct head/brain w/o co ntrast material Jarrett Dove MD Work Phone: Start: 11-01-2024 Culture bacterial quanttative colony count urine Oscar Lucio PA-C Work Phone: Start: 11-01-2024 Drug tst prsmv instr mnt chem analyzers pr date Wilner Kingston MD Work Phone: Start: 11-01-2024 Urinalysis complete panel - Urine Oscar Lucio PA-C Work Phone: Start: 11-01-2024 Radiologic exam ches t single view Oscar Lucio PA-C Work Phone: Start: 11-01-2024 Blood gases any comb ination ph pco2 po2 co2 hco3 Oscar Lucio PA-C Work Phone: Start: 11-01-2024 Comprehensive metabo lic panel Oscar Lucio PA-C Work Phone: Start: 11-01-2024 Ecg routine ecg w/le ast 12 lds trcg only w/o i&r Oscar Vargas PA-C Work Phone: Start: 11-01-2024 POCT GLUCOSE METER UNSOLICITED RESULTS Damon Vu MD Work Phone: Start: 05-02-2024 End: 05-02-2024 Computerized ophthalmic imaging retina Moses Acevedo MD Work Phone: Start: 04-29-2024 Lipid 1996 panel - S akilah or Plasma Christy Rizzo MD Work Phone: Start: 04-29-2024 Thyrotropin [Units/v olume] in Serum or Plasma Christy Rizzo MD Work Phone: Start: 03-14-2024 Echo tthrc r-t 2d w/ wom-mode compl spec&colr d Christy Rizzo MD Work Phone: Start: 02-18-2024 Lipid 1996 panel - S akilah or Plasma Jerome Perdomo MD Work Phone: Start: 02-18-2024 Thyrotropin [Units/v olume] in Serum or Plasma Jerome Perdomo MD Work Phone: Start: 12-04-2023 Ct abdomen & pelvis w/contrast material Anjana Meadows 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 Work Phone: Start: 11-13-2023 End: 11-13-2023 Computerized ophthalmic imaging retina Mason Faulkner MD Work Phone: Start: 11-02-2023 Hemoglobin glycosylated a1c Lyric Cruz 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 Work Phone: Start: 10-26-2023 Visual field xm uni/ bi w/interp extended exam Moses Acevedo MD Work Phone: Start: 05-09-2023 Hemoglobin glycosylated a1c Bridget Alcantara MD Work Phone: Start: 04-10-2023 Computerized ophthal cheli imaging optic nerve Moses Acevedo MD Work Phone: Start: 01-19-2023 Hemoglobin glycosylated a1c Lyric Walkerney 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 Work Phone: Start: 10-06-2022 Lipid 1996 panel - S akilah or Plasma Jerome Perdomo MD Work Phone: Start: 10-06-2022 Thyrotropin [Units/v olume] in Serum or Plasma Jerome Perdomo MD Work Phone: Start: 05-15-2022 Thyrotropin [Units/v olume] in Serum or Plasma Lyric Anthony 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 Work Phone: Start: 04-06-2022 Computerized ophthal cheli imaging optic nerve Moses Acevedo MD Work Phone: Start: 02-13-2022 Thyrotropin [Units/v olume] in Serum or Plasma Jerome Perdomo MD Work Phone: Start: 06-22-2021 Lipid 1996 panel - S akilah or Plasma Jerome Perdomo MD Work Phone: Start: 01-10-2021 CT GUIDANCE RADIOLOG Y THERAPY Ino He MD Work Phone: Start: 12-27-2020 Blood count complete automated Ino He MD Work Phone: Start: 12-13-2020 Blood count complete automated Ino He MD Work Phone: Start: 11-11-2020 CT GUIDANCE RADIOLOG Y THERAPY Ino He MD Work Phone: Start: 10-01-2020 Assay of thyroid sti mulating hormone tsh Jael Vasil Work Phone: Start: 10-01-2020 Gluc bld gluc mntr d ev cleared fda spec home use Cuauhtemoc Be Stubbs Work Phone: Start: 10-01-2020 Gluc bld gluc mntr d ev cleared fda spec home use Cuauhtemoc Stubbs Work Phone: Start: 10-01-2020 Gluc bld gluc mntr d ev cleared fda spec home use Cuauhtemoc Be Stubbs Work Phone: Start: 09-30-2020 Gluc bld gluc mntr d ev cleared fda spec home use Cuauhtemoc Stubbs Work Phone: Start: 09-30-2020 Gluc bld gluc mntr d ev cleared fda spec home use Cuauhtemoc Stubbs Work Phone: Start: 09-30-2020 Gluc bld gluc mntr d ev cleared fda spec home use Cuauhtemoc Stubbs Work Phone: Start: 09-30-2020 OPERATIVE REPORT 3m Sca nning Start: 09-30-2020 Gluc bld gluc mntr d ev cleared fda spec home use Cuauhtemoc Stubbs Work Phone: Start: 09-30-2020 Gluc bld gluc mntr d ev cleared fda spec home use Cuauhtemoc Stubbs Work Phone: Start: 09-30-2020 Level iv surg pathol ogy gross&microscopic exam Cuauhtemoc Stubbs Work Phone: Start: 09-30-2020 End: 09-30-2020 Gluc bld gluc mntr dev cleared fda spec home use Cuauhtemoc Stubbs Work Phone: Start: 09-30-2020 End: 09-30-2020 Gluc bld gluc mntr dev cleared fda spec home use Cuauhtemoc Stubbs Work Phone: Start: 09-23-2020 Ecg routine ecg w/le ast 12 lds w/i&r Jailene Spear Work Phone: Start: 09-23-2020 Basic metabolic pane l calcium total Jailene Spear Work Phone: Start: 09-23-2020 Blood count hemoglobin Jailene Spear Work Phone: Start: 09-23-2020 Blood typing serologic abo Jailene Spear Work Phone: Start: 12-27-2017 Ecg routine ecg w/le ast 12 lds w/i&r Haile Golden Work Phone: Plan of Treatment Date Care Activity Detail Author Start: 06-28-2033 DTaP/Tdap/Td Vaccines (2 - Td or Tdap) DTaP/Tdap/Td Vaccines (2 - Td or Tdap) [facility] Start: 06-28-2033 Urine microalbumin profile DTaP,Tdap,Td Vaccine (2 - Td or Tdap) [facility] Start: 06-28-2033 [facility] Start: 05-19-2026 Creatinine measurement [facility] Start: 05-19-2026 Potassium measurement [facility] Start: 05-11-2026 Hemoglobin A1c measurement [facility] Start: 11-05-2025 Creatinine measurement Creatinine Level [facility] Start: 11-05-2025 Diabetes: Estimated Glomerular Filtration Rate for [facility]ney Health Diabetes: Estimated Glomerular Filtration Rate for Kid[facility] Health [facility] Start: 11-05-2025 Potassium measurement Potassium Level [facility] Start: 11-03-2025 Echocardiography Echocardiogram [facility] Start: 11-03-2025 [facility] Start: 11-02-2025 Hemoglobin A1c measurement Diabetes: Hemoglobin A1C [facility] Start: 11-02-2025 Thyroid stimulating hormone measurement [facility] Start: 07-22-2025 Glaucoma screening [facility] Start: 05-02-2025 Glaucoma screening Dilated Retinal Exam [facility] Start: 04-29-2025 Glaucoma screening Diabetes: Retinopathy Screening [facility] Start: 04-29-2025 Hemoglobin A1c measurement Diabetes: Hemoglobin A1C [facility] Start: 04-29-2025 Lipid panel [facility] Start: 04-29-2025 Thyroid stimulating hormone measurement TSH Level [facility] Start: 03-23-2025 Influenza vaccination Influenza Vaccine (#1) [facility] [facility] Start: 03-23-2025 [facility] Start: 03-19-2025 Medicare Annual Wellness (AWV) Medicare Annual Wellness (AWV) [facility] Start: 03-19-2025 [facility] Start: 02-23-2025 End: 02-23-2025 Patient encounter procedure 02/23/2025 3:00 PM EDT Office Visit [facility] [place] [address] [facility] [address] [address] Seema Hernandez, 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 [address] [facility] [address] [address] [facility] Start: 02-17-2025 Hemoglobin A1c measurement Diabetes: Hemoglobin A1C [facility] Start: 02-17-2025 Lipid panel Lipid Panel [facility] Start: 02-17-2025 Thyroid stimulating hormone measurement TSH Level [facility] Start: 01-26-2025 End: 01-26-2025 Patient encounter procedure 01/26/2025 2:00 PM EDT Office Visit [facility] [address] [place] [phone] Seema Hernandez 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 [address] [place] [place] [address] [facility] Start: 2025 End: 2025 Patient encounter procedure 2025 11:00 AM EDT Appointment [facility] [address] [place] [phone] Cuauhtemoc Stubsb MD [address] [facility] [address] [place] [address] [facility] Start: 12-23-2024 End: 12-23-2025 PET+CT Bone from skull base to mid-thigh W 18F-NaF IV PET/CT skull base to mid thigh Imaging Routine Multiple lung nodules Endometrial cancer (CMS/HCC) (HCC) Expected: 12/23/2024, Expires: 12/23/2025 [facility] Work Phone: Comment on above: Expected: 12/23/2024, Expires: Start: 12-22-2024 End: 12-22-2024 Patient encounter procedure [facility] Start: 12-12-2024 End: 12-12-2024 Patient encounter procedure 12/12/2024 3:30 PM EDT Office Visit [facility] [place] [address] [place] [phone] Carli Aldrich 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 [address] [place] [address] [facility] [place] Start: 12-10-2024 End: 12-10-2025 CT Guidance for biopsy of Retroperitoneum CT guided biopsy abdomen or retroperitoneum Imaging Routine Endometrial cancer (CMS/HCC) (HCC) Multiple lung nodules Expected: 12/10/2024, Expires: 12/10/2025 [facility] Work Phone: Comment on above: Expected: 12/10/2024, Expires: Start: 12-08-2024 End: 12-08-2025 CT Guidance for biopsy of Lung CT guided percutaneous lung Imaging Routine Endometrial cancer (CMS/HCC) (HCC) Multiple lung nodules Expected: 12/08/2024, Expires: 12/08/2025 [facility] Work Phone: Comment on above: Expected: 12/08/2024, Expires: Start: 12-03-2024 End: 12-03-2024 Patient encounter procedure 12/03/2024 9:15 AM EDT Appointment [facility] [place] [address] [place] [phone] Jerome Perdomo MD [address] [place] [address] [facility] [place] Start: 12-02-2024 End: 12-02-2024 Patient encounter procedure 12/02/2024 10:00 AM EDT Office Visit [facility] [place] [address] [place] [phone] Carli Aldrich, 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 [address] [place] [address] [facility] [place] Start: 11-27-2024 End: 05-06-2025 Camera fundoscopy FUNDUS PHOTOS OU (BOTH EYES) [facility] Imaging Routine 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 macular edema, with long-term current use of insulin (HCC) Expected: 11/27/2024, Expires: 05/06/2025 [facility] Comment on above: Expected: 11/27/2024, Expires: Start: 11-27-2024 End: 05-06-2025 OCT MACULA CIRRUS OU (BOTH EYES) OCT MACULA CIRRUS OU (BOTH EYES) [facility] Imaging Routine 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 macular edema, with long-term current use of insulin (HCC) Expected: 11/27/2024, Expires: 05/06/2025 [facility] Work Phone: Comment on above: Expected: 11/27/2024, Expires: Start: 11-12-2024 Glaucoma screening Dilated Retinal Exam [facility] Start: 11-11-2024 Subsequent hospital visit by physician 11/11/2024 8:30 AM EDT Hospital Encounter [facility] [address] [place] [phone] Christy Leach MD [address] [address] [facility] 1 [facility] Start: 11-11-2024 End: 11-11-2024 Patient encounter procedure [facility] 1 [facility] Start: 11-01-2024 Hemoglobin A1c measurement Diabetes: Hemoglobin A1C [facility] Start: 10-31-2024 End: 10-31-2024 Patient encounter procedure 10/31/2024 3:00 PM EDT Office Visit [facility] St[facility] [address] [place] [address] Moses Acevedo MD [address] [place] [address] Return in about 6 months (around 10/31/2024) for IOP check and HVF 24-2 OU . Stu Lee Comment on above: Return in about 6 months (around 11/01/19 25) for IOP check and HVF 24-2 OU . Start: 10-27-2024 End: 10-27-2026 Heart Transthoracic Transthoracic echocardiogram (TTE) complete with contrast, bubble, strain, and 3D PRN CV Echocardiography Routine Heart failure, unspecified (HCC) Nonrheumatic aortic (valve) stenosis Other general symptoms and signs Expected: 10/27/2024 (Approximate), Expires: 10/27/2026 [facility] Work Phone: Comment on above: Expected: 10/27/2024 (Approximate), Expi res: 10/27/2026 Start: 09-17-2024 Diabetes: Urine Albumin-Creatinine Ratio for [facility] Diabetes: Urine Albumin-Creatinine Ratio for [facility] Start: 09-12-2024 End: 09-12-2024 Patient encounter procedure [facility] Start: 09-01-2024 End: 09-01-2024 Patient encounter procedure 09/01/2024 3:00 PM EST Office Visit [facility] [place] [address] [place] [address] Azra Buck APRN - 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 [address] [place] [address] [facility] [place] Start: 08-19-2024 End: 08-19-2024 Patient encounter procedure [facility] Start: 06-24-2024 End: 06-24-2024 Patient encounter procedure 06/24/2024 10:30 AM EST Office Visit [facility] Stu Lee [address] [place] [address] Mason Faulkner MD [address] [place], [place] [phone] Return in about 6 months (around 05/14/2024). pt requested later appt [facility] Comment on above: Return in about 6 months (around 024). pt requested later appt Start: 05-21-2024 End: 05-21-2024 Patient encounter procedure [facility] [place] Start: 05-20-2024 Hemoglobin A1c measurement HbA1C [facility] Start: 05-15-2024 Glaucoma screening Dilated Retinal Exam [facility] Start: 05-13-2024 End: 05-13-2024 Patient encounter procedure 05/13/2024 2:30 PM EDT Office Visit [facility] Stu Lee [address] [place] [address] Mason Faulkner MD [address] [place], [place] [phone] Return in about 6 months (around 05/14/2024). Stu [facility] Comment on above: Return in about 6 months (around 024). Start: 05-09-2024 Hemoglobin A1c measurement Diabetes: Hemoglobin A1C [facility] Start: 05-07-2024 End: 05-07-2024 Patient encounter procedure 05/07/2024 1:00 PM EDT Appointment [facility] [place] [address] [place] [address] Jerome Perdomo MD [address] [place] [phone] [facility] [place] Start: 05-02-2024 End: 05-02-2024 Patient encounter procedure 05/02/2024 3:00 PM EDT Office Visit [facility] Stu Lee 1 [place] [address] Moses Acevedo MD [address] [place], [place] [phone] Return in about 6 months (around 04/26/2024) for Complete eye exam with OCT nerve OU . Stu Lee Comment on above: Return in about 6 months (around 04/26/20 24) for Complete eye exam with OCT nerve OU . Start: 04-23-2024 End: 04-23-2024 Patient encounter procedure [facility] Start: 04-10-2024 Hepatitis C antibody, confirmatory test Dilated Retinal Exam [facility] Start: 04-09-2024 End: 04-09-2024 Patient encounter procedure 04/09/2024 1:00 PM EDT Appointment [facility] [address] [place] [address] Jerome Perdomo MD [address] [facility] [place] [phone] [facility] Start: 03-26-2024 End: 03-26-2024 Patient encounter procedure [facility] Start: 03-23-2024 COVID-19 Vaccine ( season) COVID-19 Vaccine () [facility] Start: 03-23-2024 COVID-19 Vaccine ( season) COVID-19 Vaccine ( season) [facility] Start: 03-23-2024 Covid-19 Vaccine () Covid-19 Vaccine () [facility] Start: 03-23-2024 Influenza vaccination [facility] Start: 03-19-2024 End: 03-19-2024 Patient encounter procedure 03/19/2024 3:30 PM EDT Office Visit [facility] [address] [facility] [address] [place] [phone] Lyric Cruz, 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 [address] [place], [place] [address] [facility] Start: 03-14-2024 End: 03-14-2024 Patient encounter procedure 03/14/2024 3:00 PM EDT Appointment [facility] 1 [facility] Stress [address] [facility] [address] [place] [phone] Christy Leach MD [address] [facility] [address] [place] [phone] [facility] 1 [facility] Start: 03-12-2024 End: 03-12-2024 Patient encounter procedure 03/12/2024 1:00 PM EDT Appointment [facility] [address] [place] [address] Jerome Perdomo MD [address] [place] [address] [facility] Start: 03-04-2024 End: 03-04-2024 Patient encounter procedure 03/04/2024 3:30 PM EDT Office Visit [facility] Oncology [address] [facility] 295 [place] [phone] Anjana Meadows APRN [facility] [address] [facility] [address] [place], [place] [phone] [facility] Start: 02-27-2024 End: 02-27-2024 Patient encounter procedure 02/27/2024 10:45 AM EDT Appointment [facility] [address] [place] [address] Jerome Perdomo MD [address] [place] [address] [facility] Start: 02-14-2024 Glaucoma screening Diabetes: Retinopathy Screening [facility] Start: 02-13-2024 End: 02-13-2024 Patient encounter procedure 02/13/2024 1:00 PM EDT Appointment [facility] [address] [place] [address] Jerome Perdomo MD [address] [place] [address] [facility] Start: 02-01-2024 Hemoglobin A1c measurement HbA1C [facility] Start: 01-30-2024 End: 01-30-2024 Patient encounter procedure 01/30/2024 11:00 AM EDT Appointment [facility] [address] [place] [address] Jerome Perdomo MD [address] [place] [address] [facility] Start: 01-20-2024 Hemoglobin A1c measurement Diabetes: Hemoglobin A1C [facility] Start: 01-16-2024 End: 01-16-2024 Patient encounter procedure 01/16/2024 3:15 PM EDT Appointment [facility] [address] [place] [address] Jerome Perdomo MD [address] [place] [address] [facility] Start: 2024 End: 2024 Patient encounter procedure 2024 11:00 AM EDT Appointment [facility] [address] [place] [address] Jerome Perdomo MD [address] [place] [address] [facility] Start: 12-20-2023 End: 12-20-2023 Patient encounter procedure 12/20/2023 3:15 PM EDT Appointment [facility] [address] [place] [address] Jerome Perdomo MD [address] [place] [address] [facility] Start: 12-05-2023 End: 12-05-2023 Patient encounter procedure 12/05/2023 11:00 AM EDT Appointment [facility] [address] [place] [address] Jerome Perdomo MD [address] [place] [phone] [facility] Start: 12-04-2023 End: 12-04-2023 Patient encounter procedure 12/04/2023 10:30 AM EDT Appointment [facility] 1 [facility] 1 [place] [phone] [facility] 1 [facility] Start: 11-21-2023 End: 11-21-2023 Patient encounter procedure 11/21/2023 3:15 PM EDT Appointment [facility] [address] [place] [address] Jerome Perdomo MD [address] [place] [address] [facility] Start: 11-07-2023 End: 11-07-2023 Patient encounter procedure 11/07/2023 11:15 AM EDT Appointment [facility] [address] [place] [address] Jerome Perdomo MD [address] [place] [address] [facility] Start: 11-02-2023 End: 11-02-2023 Patient encounter procedure 11/02/2023 3:30 PM EDT Office Visit [facility] Endocrinology [address] [facility] [address] [place] [phone] Lyric Cruz, 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 [address] [place] [address] [facility] Start: 11-01-2023 End: 11-01-2023 Patient encounter procedure 11/01/2023 3:30 PM EDT Office Visit [facility] Gynecologic Oncology [address] [facility] [address] [place] [phone] Jaqueline Grayson, 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 [address] [place] [address] [facility] Start: 11-01-2023 End: 10-31-2024 Creatinine [Mass/volume] in Serum or Plasma Creatinine, Serum Lab Routine Endometrial cancer (CMS/HCC) (HCC) Expected: 11/01/2023 (Approximate), Expires: 10/31/2024 [facility] Comment on above: Expected: 11/01/2023 (Approximate), Expi res: 10/31/2024 Start: 11-01-2023 End: 10-31-2024 CT Abdomen and Pelvis W contrast IV CT abdomen pelvis w contrast Imaging Routine Endometrial cancer (CMS/HCC) (HCC) Expected: 11/01/2023, Expires: 10/31/2024 [facility] Work Phone: Comment on above: Expected: 11/01/2023, Expires: Start: 10-24-2023 End: 10-24-2023 Patient encounter procedure [facility] Start: 10-10-2023 End: 10-10-2023 Patient encounter procedure [facility] Start: 10-07-2023 Diabetes: Estimated Glomerular Filtration Rate for Kidney Health Diabetes: Estimated Glomerular Filtration Rate for [facility]ney Health [facility] Start: 10-07-2023 Diabetes: Urine Albumin-Creatinine Ratio for [facility] Health Diabetes: Urine Albumin-Creatinine Ratio for [facility] Health [facility] Start: 10-07-2023 Hepatitis B screening Urine Albumin:Creatinine Ratio [facility] Start: 10-07-2023 Hepatitis B surface antibody level LDL Cholesterol [facility] Start: 10-07-2023 Lipid panel Lipid Panel [facility] Start: 10-07-2023 Thyroid stimulating hormone measurement TSH Level [facility] Start: 10-07-2023 Urine screening for protein Diabetes: Urine Protein Screening [facility] Start: 09-26-2023 Glaucoma screening Diabetes: Retinopathy Screening [facility] Start: 09-26-2023 End: 09-26-2023 Patient encounter procedure 09/26/2023 11:00 AM EST Appointment [facility] [address] [place] [address] Jerome Perdomo MD [address] [place] [address] [facility] Start: 09-13-2023 End: 09-13-2023 Patient encounter procedure 09/13/2023 3:15 PM EST Appointment [facility] [address] [place] [address] Jerome Perdomo MD [address] [place] [address] [facility] Start: 09-12-2023 End: 09-12-2023 Patient encounter procedure 09/12/2023 3:30 PM EST Office Visit [facility] Endocrinology [address] [facility] [address] [place] [address] Lyric Cruz, 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 [address] [place] [address] [facility] Start: 09-11-2023 End: 09-11-2023 Patient encounter procedure 09/11/2023 2:30 PM EST Appointment [facility] [address] [place] [address] Ino He MD [address] [phone] [facility] Start: 08-29-2023 End: 08-29-2023 Patient encounter procedure 08/29/2023 11:00 AM EST Appointment [facility] [address] [place] [address] Jerome Perdomo MD [address] [place] [address] [facility] Start: 08-15-2023 End: 08-15-2023 Patient encounter procedure 08/15/2023 3:15 PM EST Appointment [facility] [address] [place] [address] Jerome Perdomo MD [address] [place] [address], [address] [place], [place] [phone] [facility] Start: 08-09-2023 End: 05-09-2024 Comprehensive metabolic 1998 panel - Serum or Plasma Comprehensive metabolic panel Lab Routine Type 2 diabetes mellitus with hyperglycemia, with long-term current use of insulin (CMS/HCC) (HCC) Expected: 08/09/2023 (Approximate), Expires: 05/09/2024 [facility] Work Phone: Comment on above: Expected: 08/09/2023 (Approximate), Expi res: 05/09/2024 Start: 08-09-2023 End: 05-09-2024 Hemoglobin A1c measurement [facility] Comment on above: Expected: 08/09/2023 (Approximate), Expi res: 05/09/2024 Start: 08-09-2023 End: 05-09-2024 Lipid 1996 panel - Serum or Plasma Lipid panel Lab Routine Mixed hyperlipidemia Expected: 08/09/2023 (Approximate), Expires: 05/09/2024 [facility] Comment on above: Expected: 08/09/2023 (Approximate), Expi res: 05/09/2024 Start: 08-09-2023 End: 05-09-2024 Thyrotropin [Units/volume] in Serum or Plasma TSH Lab Routine 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 Expected: 08/09/2023 (Approximate), Expires: 05/09/2024 [facility] Comment on above: Expected: 08/09/2023 (Approximate), Expi res: 05/09/2024 Start: 08-09-2023 End: 05-09-2024 Thyroxine (T4) free [Mass/volume] in Serum or Plasma T4, free Lab Routine 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 Start: 07-23-2023 Behavioral Health Screening Behavioral Health Screening [facility] Start: 07-18-2023 End: 07-18-2023 Patient encounter procedure 07/18/2023 11:00 AM EST Appointment [facility] [address] [place] [address] Jerome Perdomo MD [address] [place], [place] [phone] [facility] Start: 07-04-2023 End: 07-04-2023 Patient encounter procedure 07/04/2023 3:15 PM EST Appointment [facility] [address] [place] [phone] Jerome Perdomo MD [address] [place], [place] [phone] [facility] Start: 06-20-2023 End: 06-20-2023 Patient encounter procedure 06/20/2023 11:00 AM EST Appointment [facility] [address] [place] [phone] Jerome Perdomo MD [address] [place] [address] [facility] Start: 06-06-2023 End: 06-06-2023 Patient encounter procedure 06/06/2023 3:15 PM EST Appointment [facility] [address] [place] [address] Jerome Perdomo MD [address] [place] [address] [facility] Start: 05-23-2023 End: 05-23-2023 Patient encounter procedure 05/23/2023 11:00 AM EDT Appointment [facility] [address] [place] [address] Jerome Perdomo MD [address] [place] [address] [facility] Start: 05-15-2023 Thyroid stimulating hormone measurement TSH Level [facility] Start: 05-11-2023 End: 05-11-2023 Clinical Support 05/11/2023 11:00 AM EDT Clinical Support [facility] [address] [place] [phone] [facility] Start: 05-09-2023 End: 05-09-2023 Patient encounter procedure [facility] Start: 05-08-2023 End: 05-08-2023 Patient encounter procedure 05/08/2023 11:00 AM EDT Appointment [facility] [address] [place] [address] Jerome Perdomo MD [address] [place] [address] [facility] Start: 04-30-2023 End: 04-30-2023 Patient encounter procedure [facility] Start: 04-25-2023 End: 04-25-2023 Patient encounter procedure 04/25/2023 11:00 AM EDT Appointment [facility] [address] [place] [address] Jerome Perdomo MD [address] [place], [place] [phone] [facility] Start: 04-21-2023 Hemoglobin A1c/Hemoglobin.total in Blood HbA1C [facility] Start: 04-17-2023 End: 04-17-2023 Patient encounter procedure 04/17/2023 11:00 AM EDT Appointment [facility] [address] [place] [address] Jerome Perdomo MD [address] [place] [address], [address] [place] [address] [facility] Start: 04-11-2023 End: 04-11-2023 Patient encounter procedure 04/11/2023 11:00 AM EDT Appointment [facility] [address] [place] [address] Jerome Perdomo MD [address] [place] [address], [address] [place] [address] [facility] Start: 04-06-2023 Diabetic retinal exam Diabetic retinal exam [facility] Start: 04-06-2023 Hepatitis C antibody, confirmatory test DILATED RETINAL EXAM [facility] Start: 03-28-2023 End: 03-28-2023 Patient encounter procedure 03/28/2023 11:00 AM EDT Appointment [facility] [address] [place] [address] Jerome Perdomo MD [address] [place] [address], [address] [place] [address] [facility] Start: 03-23-2023 COVID-19 Vaccine ( season) COVID-19 Vaccine ( season) [facility] Start: 03-23-2023 Influenza vaccination Influenza Vaccine (#1) [facility] Start: 03-23-2023 End: 03-23-2023 Clinical Support 03/23/2023 10:00 AM EDT Clinical Support [facility] End[facility]ology [address] [place] [phone] [facility] Start: 03-15-2023 Medicare Annual Wellness (AWV) Medicare Annual Wellness (AWV) [facility] Start: 03-14-2023 End: 03-14-2023 Patient encounter procedure 03/14/2023 11:00 AM EDT Appointment [facility] [address] [place] [address] Jerome Perdomo MD [address] [place] [address] [facility] Start: 03-02-2023 End: 03-02-2023 Patient encounter procedure 03/02/2023 2:00 PM EDT Appointment [facility] [address] [place] [phone] Ino He MD [address] [id number] [facility] Start: 02-28-2023 End: 02-28-2023 Patient encounter procedure 02/28/2023 11:00 AM EDT Appointment [facility] [address] [place] [address] Jerome Perdomo MD [address] [place] [address] [facility] Start: 02-17-2023 Urine screening for protein Diabetes: Urine Protein Screening [facility] Start: 02-14-2023 End: 02-14-2023 Patient encounter procedure 02/14/2023 11:00 AM EDT Appointment [facility] [address] [place] [address] Jerome Perdomo MD [address] [facility] [address] [facility] Start: 02-13-2023 Diabetic retinal exam Diabetic retinal exam [facility] Start: 02-13-2023 Glaucoma screening Diabetes: Retinopathy Screening [facility] Start: 02-13-2023 Lipid panel Lipids [facility] Start: 02-13-2023 Thyroid stimulating hormone measurement TSH Level [facility] Start: 01-31-2023 End: 01-31-2023 Patient encounter procedure 01/31/2023 11:00 AM EDT Appointment [facility] [address] [place] [address] Jerome Perdomo MD [address] [place], [place] [phone] [facility] Start: 01-19-2023 End: 01-19-2023 Patient encounter procedure [facility] Start: 01-17-2023 End: 01-17-2023 Patient encounter procedure [facility] Start: 01-06-2023 Hemoglobin A1c measurement Diabetes: Hemoglobin A1C [facility] Start: 01-03-2023 End: 01-03-2023 Patient encounter procedure 01/03/2023 Appointment Wound Care [facility] Start: 12-20-2022 End: 12-20-2022 Patient encounter procedure 12/20/2022 Appointment Wound Care Jerome Perdomo MD [address] [place], [place] [phone] [facility] Start: 12-06-2022 End: 12-06-2022 Patient encounter procedure 12/06/2022 Appointment Wound Care [facility] Start: 11-22-2022 End: 11-22-2022 Patient encounter procedure 11/22/2022 Appointment Wound Care Jerome Perdomo MD [address] [place], [place] [id number] [facility] Start: 11-08-2022 End: 11-08-2022 Patient encounter procedure 11/08/2022 Appointment Wound Care [facility] Start: 11-03-2022 End: 11-03-2022 Patient encounter procedure 11/03/2022 Office Visit Gynecologic Oncology Jaqueline Grayson, 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 [address] [address] [facility] Gynecologic Oncology Start: 10-25-2022 End: 10-25-2022 Patient encounter procedure 10/25/2022 Appointment Wound Care Jerome Perdomo MD [address] [place], [place] [id number] [facility] Start: 10-11-2022 End: 10-11-2022 Patient encounter procedure 10/11/2022 Appointment Wound Care [facility] Start: 10-06-2022 End: 10-06-2022 Patient encounter procedure 10/06/2022 Office Visit Endocrinology Lyric Cruz, 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 [address] [place] [address] Endocr[facility]ology [place] Start: 10-05-2022 Hemoglobin A1c measurement Diabetes: Hemoglobin A1C [facility] Start: 09-27-2022 End: 09-27-2022 Patient encounter procedure 09/27/2022 Appointment Wound Care Jerome Perdomo MD [address] [place], [place] [id number] [facility] Start: 09-15-2022 End: 09-15-2022 Patient encounter procedure 09/15/2022 Appointment Radiation Oncology Ino He MD [address] [facility] [address] [place] [address] [facility] Start: 09-13-2022 Pneumococcal 65+ years Vaccine (2 - PCV) Pneumococcal 65+ years Vaccine (2 - PCV) [facility] Start: 09-13-2022 End: 09-13-2022 Patient encounter procedure [facility] Start: 08-30-2022 End: 08-30-2022 Patient encounter procedure 08/30/2022 Appointment Wound Care Jerome Perdomo MD [address] [place], [place] [id number] [facility] Start: 08-17-2022 COVID-19 Vaccine (5 - Pfizer series) COVID-19 Vaccine (5 - Pfizer series) [facility] Start: 08-16-2022 End: 08-16-2022 Patient encounter procedure 08/16/2022 Appointment Wound Care [facility] Start: 08-05-2022 Hepatitis C antibody, confirmatory test DILATED RETINAL EXAM [facility] Start: 07-23-2022 Advance Directive Discussion Advance Directive Discussion [facility] Start: 07-23-2022 [address] Depression Assessment [facility] Start: 07-07-2022 End: 07-07-2022 Patient encounter procedure 07/07/2022 Office Visit Endocrinology Lyric Cruz, 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 [address] [place] [address] Endocrinology [place] Start: 06-22-2022 Lipid panel Lipid Panel [facility] Start: 06-13-2022 [facility]id panel [facility] Start: 06-03-2022 Hemoglobin A1c measurement A1C test (Diabetic or Prediabetic) [facility] Start: 05-05-2022 End: 05-05-2022 Patient encounter procedure [facility] [place] [facility] Start: 04-12-2022 Diabetic retinal exam Diabetic retinal exam [facility] Start: 04-06-2022 Creatinine measurement [facility] Start: 04-06-2022 Diabetic microalbuminuria test Diabetic microalbuminuria test [facility] Start: 04-06-2022 Hemoglobin A1c measurement A1C test (Diabetic or Prediabetic) [facility] Start: 04-06-2022 Hepatitis B screening URINE ALBUMIN:CREATININE RATIO [facility] Start: 04-06-2022 Lipid panel Lipid screen [facility] Start: 04-06-2022 Potassium [Moles/volume] in Serum or Plasma Potassium [facility] Start: 04-06-2022 Potassium monitoring Potassium monitoring [facility] Start: 04-06-2022 Thyroid stimulating hormone measurement [facility] Start: 04-06-2022 Urine screening for protein Diabetic microalbuminuria test [facility] Start: 03-23-2022 Influenza vaccination [facility] Start: 03-17-2022 COVID-19 Vaccine (5 - Booster for Pfizer series) COVID-19 Vaccine (5 - Booster for Pfizer series) [facility] Start: 03-03-2022 End: 03-03-2022 Patient encounter procedure 03/03/2022 Office Visit Endocrinology Claudette Baker 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 [address] [place] [address] Endocrinology [place] Start: 02-20-2022 Influenza vaccination Flu vaccine (#1) [facility] Start: 01-08-2022 COLOGUARD (FIT-DNA) COLOGUARD (FIT-DNA) [facility] Start: 01-08-2022 COLORECTAL CANCER SCREENING COLORECTAL CANCER SCREENING [facility] Start: 01-08-2022 Screening for malignant neoplasm of colon [facility] Start: 11-11-2021 End: 11-11-2021 Patient encounter procedure 11/11/2021 Office Visit Endocrinology Lester Hanks DO [address] [place] [address] [phone] [facility] [place] Start: 11-04-2021 End: 11-04-2021 Patient encounter procedure 11/04/2021 Office Visit Gynecologic Oncology Anjana Meadows APRN - 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 [address] [facility] [place] [address] [facility] Start: 10-21-2021 End: 10-21-2021 [facility] Start: 10-14-2021 COVID-19 Vaccine (4 - Booster for Pfizer series) COVID-19 Vaccine (4 - Booster for Pfizer series) [facility] Start: 10-01-2021 Thyroid stimulating hormone measurement TSH testing [facility] Work Phone: Start: 10-01-2021 TSH Qn TSH testing [facility] Work Phone: Start: 09-23-2021 Creatinine measurement Creatinine monitoring [facility] Work Phone: Start: 09-23-2021 Potassium monitoring Potassium monitoring [facility] Work Phone: Start: 09-16-2021 COVID-19 VACCINE (4 - Booster for Pfizer series) COVID-19 VACCINE (4 - Booster for Pfizer series) [facility] Start: 08-16-2021 COVID-19 Vaccine (4 - Booster for Pfizer series) COVID-19 Vaccine (4 - Booster for Pfizer series) [facility] Start: 08-12-2021 End: 08-12-2021 Patient encounter procedure 08/12/2021 Office Visit Endocrinology Lyric Cruz 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 [address] [place] [address] [phone] [facility] [place] Start: 08-08-2021 COVID-19 Vaccine (4 - Booster for Pfizer series) COVID-19 Vaccine (4 - Booster for Pfizer series) [facility] Start: 07-23-2021 ADVANCE DIRECTIVE DISCUSSION ADVANCE DIRECTIVE DISCUSSION [facility] Start: 07-06-2021 Hemoglobin A1c/Hemoglobin.total in Blood HBA1C [facility] Start: 04-21-2021 End: 04-21-2021 Office Visit [facility] [place] [facility] Start: 04-06-2021 End: 04-06-2021 Patient encounter procedure 04/06/2021 Office Visit Endocrinology Lyric Cruz 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 [address] [place] [address] [phone] [facility] [place] Start: 03-23-2021 Influenza vaccination Flu vaccine (#1) [facility] Start: 03-04-2021 Creatinine measurement Creatinine monitoring [facility] [place] Start: 03-04-2021 Lipid panel Lipid screen [facility], [place] Start: 03-04-2021 Potassium monitoring Potassium monitoring [facility] [place] Start: 12-09-2020 COVID-19 Vaccine (3 - Pfizer risk 3-dose series) COVID-19 Vaccine (3 - Pfizer risk 3-dose series) [facility] Work Phone: Start: 12-09-2020 COVID-19 Vaccine (3 - Pfizer risk 4-dose series) COVID-19 Vaccine (3 - Pfizer risk 4-dose series) [facility] Start: 10-27-2020 End: 10-27-2020 Appointment 10/27/2020 Appointment Radiology Ino He MD [address] [facility] [address] [place] [address] [phone] [facility] Start: 10-18-2020 End: 10-18-2020 Office Visit 10/18/2020 Office Visit Gynecologic Oncology Cuauhtemoc Stubbs MD [address] [place] [address] [phone] [facility] [place] [facility] Start: 09-30-2020 End: 09-30-2020 Appointment 09/30/2020 Appointment General Surgery Cuauhtemoc Stubbs MD [address], [address] [place] [address] [phone] [facility] Start: 09-23-2020 End: 09-23-2020 Appointment 09/23/2020 Appointment Pre-Admission Testing Cuauhtemoc Stubbs MD [address], [address] [place] [address] [phone] [facility]-Admit Testing Start: 09-17-2020 Annual Wellness Visit (AWV) Annual Wellness Visit (AWV) [facility] Start: 09-17-2020 End: 09-17-2020 Office Visit 09/17/2020 Office Visit Gynecologic Oncology Cuauhtemoc Stubbs MD [address] [place] [address] [phone] Endometrial cancer (HCC) (Primary Dx) [facility] Comment on above: Endometrial cancer (HCC) (Primary Dx) Start: 09-03-2020 End: 09-03-2020 Office Visit 09/03/2020 Office Visit Weight Management Clare Bui MD [address] [place] [address] [phone] [facility] Start: 07-31-2020 Creatinine measurement [facility] [place] Start: 07-31-2020 Creatinine monitoring Creatinine monitoring [facility] Work Phone: Start: 07-31-2020 Lipid panel Lipid screen [facility] [place] Start: 07-31-2020 Lipid screen Lipid screen [facility] Work Phone: Start: 07-31-2020 Potassium monitoring Potassium monitoring [facility] Work Phone: Start: 07-30-2020 End: 07-30-2020 Office Visit [facility] Start: 06-24-2020 HbA1c (Bld) [Mass fraction] A1C test (Diabetic or Prediabetic) [place], [place] Start: 06-24-2020 Hemoglobin A1c measurement A1C test (Diabetic or Prediabetic) [facility] Work Phone: Start: 06-24-2020 Lipid screen Lipid screen [facility] Work Phone: Start: 05-06-2020 End: 05-06-2020 Office Visit 05/06/2020 Office Visit Bariatrics Clare Bui MD [address] [place] [address] [phone] [facility] Start: 04-01-2020 End: 04-01-2020 Office Visit 04/01/2020 Office Visit Clare Goodson MD [address] [place] [address] [phone] [facility] Start: 03-27-2020 Creatinine monitoring Creatinine monitoring [facility] [place] Start: 03-27-2020 [facility] screen [facility] Start: 03-27-2020 Potassium monitoring Potassium monitoring [facility] Start: 03-23-2020 Influenza vaccination [facility] Start: 03-08-2020 End: 03-08-2020 Office Visit 03/08/2020 Office Visit Bariatrics Clare Bui MD [address] [facility] [place] [address] [phone] [facility] Start: 01-03-[address] [facility] Start: 01-03-2020 Bone Density Screening Bone Density Screening [facility] Start: 01-03-2020 Pneumococcal 65+ years Vaccine (1 of 1 - PPSV23) Pneumococcal 65+ years Vaccine (1 of 1 - PPSV23) [facility] Start: 01-03-2020 Pneumococcal 65+ years Vaccine (2 of 2 - PPSV23) Pneumococcal 65+ years Vaccine (2 of 2 - PPSV23) [facility] Work Phone: Start: 01-03-2020 PNEUMOVAX AGE 65 AND OVER WITH 5YR LOOKBACK (#1) PNEUMOVAX AGE 65 AND OVER WITH 5YR LOOKBACK (#1) [facility] Start: 01-03-2020 Screening for osteoporosis Bone Density Screening [facility] Start: 09-23-2019 A1C test (Diabetic or Prediabetic) A1C test (Diabetic or Prediabetic) [facility] Work Phone: Start: 09-23-2019 HbA1c (Bld) [Mass fraction] A1C test (Diabetic or Prediabetic) [facility] [place] Start: 08-27-2019 Creatinine monitoring Creatinine monitoring [facility] [place] Start: 08-27-2019 Lipid screen Lipid screen [facility] [place] Start: 08-27-2019 Potassium monitoring Potassium monitoring [facility] [place] Start: 04-03-2019 End: 04-03-2019 Office Visit 04/03/2019 Office Visit Bariatrics Jorge Alberto Palumbo MD [address] [facility], [address] [place] [address] [phone] [facility] Start: 03-23-2019 Influenza vaccination Flu vaccine (#1) [facility] [place] Start: 03-12-2019 A1C test (Diabetic or Prediabetic) A1C test (Diabetic or Prediabetic) [facility] [place] Start: 03-12-2019 TSH Qn TSH testing [place] Start: 03-12-2019 TSH testing T[place] testing [place] Start: 02-22-2019 [object Object] Diabetic foot exam [place] Start: 02-22-2019 Diabetic foot examination Diabetic foot exam [facility] Start: 06-12-2018 A1C test (Diabetic or Prediabetic) A1C test (Diabetic or Prediabetic) [place] Start: 05-21-2018 Diabetic retinal exam Diabetic retinal exam [facility] Start: 06-28-2015 Shingles vaccine (1 of 2) Shingles vaccine (1 of 2) [facility] Start: 06-28-2015 Shingles Vaccine (2 of 3) Shingles Vaccine (2 of 3) [facility] Start: 06-28-2015 SHINGRIX VACCINE (2 of 3) SHINGRIX VACCINE (2 of 3) [facility] Start: 06-28-2015 Zoster Vaccines (2 of 3) Zoster Vaccines (2 of 3) [facility] Start: 06-28-2015 [facility] Start: 2015 Hepatitis B Vaccine (1 of 3 - Risk 3-dose series) Hepatitis B Vaccine (1 of 3 - Risk 3-dose series) [facility] Start: 2015 Hepatitis B Vaccines (1 of 3 - Risk 3-dose series) Hepatitis B Vaccines (1 of 3 - Risk 3-dose series) [facility] Start: 2015 RSV Immunization aged 60 or older (1 - 1-dose 60+ series) RSV Immunization aged 60 or older (1 - 1-dose 60+ series) [facility] Start: 2015 RSV Immunization for Adults (1 - Risk 60-74 years 1-dose series) RSV Immunization for Adults (1 - Risk 60-74 years 1-dose series) [facility] Start: 2015 [facility] Start: 03-28-2010 Screening for malignant neoplasm of colon [facility] Start: 2010 Screening for osteoporosis DEXA (modify frequency per FRAX score) [facility] Start: 03-28-2008 Screening for malignant neoplasm of colon FIT/FOBT: Average risk [facility] Start: 2005 Breast cancer screen Breast cancer screen [place], [place] Start: 2005 Colon cancer screen colonoscopy Colon cancer screen colonoscopy [place] Start: 2005 Screening for malignant neoplasm of breast Breast cancer screen [facility] Start: 2005 Screening for malignant neoplasm of colon Colon cancer screen colonoscopy [place], [place] Start: 2005 Shingles Vaccine (1 of 2) Shingles Vaccine (1 of 2) [place] Start: 01-03-[address] [facility] Start: 01-03-[address] [facility] Start: 01-03-2000 FECAL OCCULT BLOOD FECAL OCCULT BLOOD [facility] Start: 01-03-2000 Screening for malignant neoplasm of colon [facility] Start: 01-03-[address] [facility] Start: [address] [facility] Start: 1995 Screening for malignant neoplasm of breast [facility] Start: 01-03-1976 Cervical cancer screen Cervical cancer screen [place] Start: 01-03-1976 Screening for malignant neoplasm of cervix Cervical cancer screen [place] Start: 1974 DTaP/Tdap/Td vaccine (1 - Tdap) DTaP/Tdap/Td vaccine (1 - Tdap) [facility] Start: 1974 DTaP/Tdap/Td Vaccines (1 - Tdap) DTaP/Tdap/Td Vaccines (1 - Tdap) [facility] Start: 1974 Hepatitis A Vaccines (1 of 2 - Risk 2-dose series) Hepatitis A Vaccines (1 of 2 - Risk 2-dose series) [facility] Start: 1974 Hepatitis B vaccine (1 of 3 - Risk 3-dose series) Hepatitis B vaccine (1 of 3 - Risk 3-dose series) [facility] Work Phone: Start: [address] [facility] Start: 1973 ANNUAL PCP TEAM CHRONIC DISEASE VISIT ANNUAL PCP TEAM CHRONIC DISEASE VISIT [facility] Start: 1973 Anxiety Screening Anxiety Screening [facility] Start: 1973 Depression Screening Depression Screening [facility] Start: 1973 Diabetic microalbuminuria test Diabetic microalbuminuria test [place] Start: 1973 Hepatitis B surface antibody level LDL CHOLESTEROL [facility] Start: 1973 HEPATITIS C SCREENING HEPATITIS C SCREENING [facility] Start: 1973 Hepatitis C screening [facility] Start: 1971 COVID-19 Vaccine (1 of 2) COVID-19 Vaccine (1 of 2) [facility] Work Phone: Start: 1971 COVID-19 Vaccine (1) COVID-19 Vaccine (1) [facility] Work Phone: Start: 1970 HIV screen HIV screen [place], [place] Start: 1970 HIV screening HIV screen [place] Start: 1967 Adult depression screening assessment DEPRESSION SCREENING [facility] Start: 1967 COVID-19 Vaccine (1) COVID-19 Vaccine (1) [facility] Work Phone: Start: 1967 Depression Monitoring Depression Monitoring [facility] Start: 1967 Depression Screen Depression Screen [facility] Start: 1967 Depresssion Monitoring Depresssion Monitoring [facility] Start: 1967 [facility] Start: 1966 DTaP/Tdap/Td vaccine (1 - Tdap) DTaP/Tdap/Td vaccine (1 - Tdap) [place] Start: 1965 3 comp foot exam completed DIABETIC FOOT EXAM [facility] Start: 1965 Diabetic foot examination [facility] Start: 1965 Preventive dental service [facility] Start: 1961 Pneumococcal 0-64 years Vaccine (1 of 1 - PPSV23) Pneumococcal 0-64 years Vaccine (1 of 1 - PPSV23) [place] Start: 1961 Pneumococcal Vaccine: 65+ (1 - PCV) Pneumococcal Vaccine: 65+ (1 - PCV) [facility] Start: 1961 PNEUMOCOCCAL: 65+ (1 - PCV) PNEUMOCOCCAL: 65+ (1 - PCV) [facility] Start: 01-03-1956 Hepatitis A Vaccines (1 of 2 - Risk 2-dose series) Hepatitis A Vaccines (1 of 2 - Risk 2-dose series) [facility] Start: 1955 Annual Wellness Visit (AWV) Annual Wellness Visit (AWV) [facility] Start: 1955 Hepatitis C screen Hepatitis C screen [place] Start: 1955 Hepatitis C screening Hepatitis C screen [facility] Start: 1955 Medicare Annual Wellness (AWV) Medicare Annual Wellness (AWV) [facility] Start: 1955 Screening for malignant neoplasm of colon [facility] Start: 1955 Screening for osteoporosis [facility] Start: 1955 Statin Therapy Statin Therapy [place], [place] End: 11-02-2024 Bacteria identified in Urine by Culture [facility] Work Phone: Comment on above: Once (Lab) for 1 Occurrences starting until 11/02/2024 Once for 1 Occurrenc es starting 11/02/2024 until 11/02/2024 End: 11-11-2024 CT Abdomen and Pelvis WO and W contrast IV [facility] Work Phone: Comment on above: Once for 1 Occurrences starting 11/12/19 until 11/11/2024 End: 10-27-2020 CT CHEST/ABDOMEN/PELVIS (PO,IV) CT CHEST/ABDOMEN/PELVIS (PO,IV) Imaging Routine Malignant neoplasm of endometrium (HCC) 1 Occurrences starting 10/27/2020 until 10/27/2020 [facility] Work Phone: Comment on above: 1 Occurrences starting 10/27/2020 until 10/27/2020 CT CHEST/ABDOMEN/PEL VIS (PO,IV) CT CHEST/ABDOMEN/PELVIS (PO,IV) Imaging Routine Malignant neoplasm of endometrium (HCC) 10/27/2020 2:36 PM EDT [facility] Work Phone: End: 01-10-2021 CT [facility] Imaging Routine Once for 1 Occurrences starting 01/10/2021 until 01/10/2021 [facility] Work Phone: Comment on above: Once for 1 Occurrences starting 01/11/20 until 01/10/2021 CT [facility] Imaging Routine 01/10/2021 10:53 AM EDT [facility] Work Phone: End: 11-11-2024 CT Head WO and W contrast IV [facility] Work Phone: Comment on above: Once for 1 Occurrences starting 11/12/19 until 11/11/2024 Dressing Order: (Triamcinolone); Weekly; Unna boot, Multilayer compression wrap 4 layers, Single layer tubigrip Dressing Order: (Triamcinolone); Weekly; Unna boot, Multilayer compression wrap 4 layers, Single layer tubigrip Wound Ostomy Routine Ordered: 08/02/2022 [facility] Work Phone: Comment on above: Ordered: 08/02/2022 Dressing Order: Keep dressing dry & clean; Weekly; ABDs; Kerlex, Silk tape; Unna boot, Multilayer compression wrap 4 layers; Trimacinolone Dressing Order: Keep dressing dry & clean; Weekly; ABDs; Kerlex, Silk tape; Unna boot, Multilayer compression wrap 4 layers; Trimacinolone Wound Ostomy Routine Ordered: 03/26/2024 [facility] Work Phone: Comment on above: Ordered: 03/26/2024 Dressing Order: Keep dressing dry & clean; Weekly; ABDs; Kerlex, Silk tape; Unna boot, Multilayer compression wrap 4 layers; Trimacinolone Dressing Order: Keep dressing dry & clean; Weekly; ABDs; Kerlex, Silk tape; Unna boot, Multilayer compression wrap 4 layers; Trimacinolone Wound Ostomy Routine Ordered: 04/23/2024 [facility] Work Phone: Comment on above: Ordered: 04/23/2024 Dressing Order: Unna boot, Multilayer compression wrap 4 layers; Trimacinolone Dressing Order: Unna boot, Multilayer compression wrap 4 layers; Trimacinolone Wound Ostomy Routine Ordered: 08/01/2023 [facility] Work Phone: Comment on above: Ordered: 08/01/2023 Dressing Order: Week ly; ABDs (as needed); Unna boot, Multilayer compression wrap 4 layers Dressing Order: Weekly; ABDs (as needed); Unna boot, Multilayer compression wrap 4 layers Wound Ostomy Routine Ordered: 08/30/2022 [facility] Work Phone: Comment on above: Ordered: 08/30/2022 Dressing Order: Week ly; ABDs; Kerlex, Silk tape; Unna boot, Multilayer compression wrap 4 layers Dressing Order: Weekly; ABDs; Kerlex, Silk tape; Unna boot, Multilayer compression wrap 4 layers Wound Ostomy Routine Ordered: 09/27/2022 [facility] Work Phone: Comment on above: Ordered: 09/27/2022 Dressing Order: Week ly; ABDs; Kerlex, Silk tape; Unna boot, Multilayer compression wrap 4 layers; Trimacinolone Dressing Order: Weekly; ABDs; Kerlex, Silk tape; Unna boot, Multilayer compression wrap 4 layers; Trimacinolone Wound Ostomy Routine Ordered: 01/30/2024 [facility] Work Phone: Comment on above: Ordered: 01/30/2024 Dressing Order: Week ly; Kerlex, Silk tape; Unna boot, Multilayer compression wrap 4 layers Dressing Order: Weekly; Kerlex, Silk tape; Unna boot, Multilayer compression wrap 4 layers Wound Ostomy Routine [facility]: [facility]22[facility]2022 [facility] Work Phone: Comment on above: Ordered: 11/22/2022 Dressing Order: Week ly; Multilayer compression wrap 4 layers, Unna boot Dressing Order: Weekly; Multilayer compression wrap 4 layers, Unna boot Wound Ostomy Routine Ordered: 10/25/2022 [facility] Work Phone: Comment on above: Ordered: 10/25/2022 Dressing Order: Week ly; Unna boot, Multilayer compression wrap 4 layers, Single layer tubigrip Dressing Order: Weekly; Unna boot, Multilayer compression wrap 4 layers, Single layer tubigrip Wound Ostomy Routine Ordered: 02/14/2023 [facility] Work Phone: Comment on above: Ordered: 02/14/2023 Dressing Order: Xeroform; ABDs; Kerlex, Silk tape; Multilayer compression wrap 4 layers, Unna boot; Antibiotic ointment Dressing Order: Xeroform; ABDs; Kerlex, Silk tape; Multilayer compression wrap 4 layers, Unna boot; Antibiotic ointment Wound Ostomy Routine Ordered: 04/09/2023 [facility] Work Phone: Comment on above: Ordered: 04/09/2023 Dressing Order: Xeroform; ABDs; Kerlex, Silk tape; Unna boot, Multilayer compression wrap 4 layers, Single layer tubigrip; Trimacinolone Dressing Order: Xeroform; ABDs; Kerlex, Silk tape; Unna boot, Multilayer compression wrap 4 layers, Single layer tubigrip; Trimacinolone Wound Ostomy Routine Ordered: 12/05/2023 [facility] Work Phone: Comment on above: Ordered: 12/05/2023 Dressing Order: Xeroform; ABDs; Kerlex, Silk tape; Unna boot, Multilayer compression wrap 4 layers; Trimacinolone Dressing Order: Xeroform; ABDs; Kerlex, Silk tape; Unna boot, Multilayer compression wrap 4 layers; Trimacinolone Wound Ostomy Routine Ordered: 09/26/2023 [facility] Work Phone: Comment on above: Ordered: 09/26/2023 Dressing Order: Xeroform; ABDs; Kerlex, Silk tape; Unna boot, Multilayer compression wrap 4 layers; Trimacinolone Dressing Order: Xeroform; ABDs; Kerlex, Silk tape; Unna boot, Multilayer compression wrap 4 layers; Trimacinolone Wound Ostomy Routine Ordered: 11/07/2023 [facility] Work Phone: Comment on above: Ordered: 11/07/2023 Dressing Order: Xeroform; Weekly; 4x4 gauze; Kerlex, Silk tape; Multilayer compression wrap 4 layers, Unna boot; Trimacinolone Dressing Order: Xeroform; Weekly; 4x4 gauze; Kerlex, Silk tape; Multilayer compression wrap 4 layers, Unna boot; Trimacinolone Wound Ostomy Routine Ordered: 01/17/2023 [employer] Work Phone: Comment on above: Ordered: 01/17/2023 Dressing Order: Xeroform; Weekly; ABDs; Kerlex, Silk tape; Unna boot, Multilayer compression wrap 4 layers; Trimacinolone Dressing Order: Xeroform; Weekly; ABDs; Kerlex, Silk tape; Unna boot, Multilayer compression wrap 4 layers; Trimacinolone Wound Ostomy Routine Ordered: 02/27/2024 [employer] Work Phone: Comment on above: Ordered: 02/27/2024 Dressing Order: Xeroform; Weekly; Kerlex, Silk tape; Unna boot, Multilayer compression wrap 4 layers; Trimacinolone Dressing Order: Xeroform; Weekly; Kerlex, Silk tape; Unna boot, Multilayer compression wrap 4 layers; Trimacinolone Wound Ostomy Routine Ordered: 05/23/2023 [employer] Work Phone: Comment on above: Ordered: 05/23/2023 EKG 12 Lead EKG 12 Lead ECG Routine 09/23/2020 5:36 PM EST [employer] Work Phone: Home BIPAP or CPAP Home BIPAP or CPAP Respiratory Care Routine Daily until discontinued starting 09/30/2020 [employer] Phone: Comment on above: Daily until discontinued starting 2020 End: 05-11-2025 Lactic acid with reflex [employer] Work Phone: Oxygen therapy [[facility] Data Set] Initiate Oxygen Therapy Protocol Respiratory Care Routine Daily until discontinued starting 09/30/2020 [employer] Work Phone: Comment on above: Daily until discontinued starting 2020 POCT Glucose [employer] Work Phone: Comment on above: As Needed until discontinued starting 4X Daily (AC & HS) u ntil discontinued starting 10/01/2020 Spirometry panel Incentive leon metry Respiratory Care Routine Every 2hr while awake until discontinued starting 09/30/2020 [employer] Phone: Comment on above: Every 2hr while awake until discontinued starting 09/30/2020 SureSwab(R) Adv Bacterial Vaginosis (BV), TMA ([facility]) SureSwab(R) Adv Bacterial Vaginosis (BV), TMA ([facility]) Microbiology Routine Vaginal discharge Ordered: 03/04/2024 [facility] Comment on above: Ordered: 03/04/2024 SURESWAB(R) ADV CAND ROSALINE VAGINITIS (CV), TMA ([facility]) Sureswab(R) Adv Migdalia Vaginitis (CV), TMA ([facility]) Lab Routine Vaginal discharge Ordered: 03/04/2024 [facility] System Work Phone: Comment on above: Ordered: 03/04/2024 Tissue exam [facility] Sy stem Work Phone: Comment on above: Release Upon Ordering for 1 Occurrences starting 12/22/2024 End: 11-02-2024 Urine Hold Cup Urine Hold Cup Lab Timed Once for 1 Occurrences starting 11/02/2024 until 11/02/2024 [facility] Comment on above: Once for 1 Occurrences starting 11/03/19 until 11/02/2024 [facility] Immunizations Immunization Date Immunization Notes [facility] Provider [facility]2024 influenza virus vacc ine, unspecified formulation Christy Rizzo MD Work Phone: [facility] 04-17-2022 Covid-19, Pfizer Bivalent Booster, (Age 12y+), Im, 30 Mcg/0e Jerome Perdomo MD Work Phone: [facility] 04-17-2022 Influenza, High-dose Seasonal, Quadrivalent, Preservative Free Jerome Perdomo MD Work Phone: [facility] 04-17-2022 influenza virus vacc ine, unspecified formulation Jerome Perdomo MD Work Phone: [facility] 11-15-2021 Covid-19, Pfizer Gra y Top, Do Not Dilute, (Age 12 Y+), Im, L Jerome Perdomo MD Work Phone: [facility] 09-13-2021 pneumococcal polysaccharide vaccine, 23 valent Jerome Perdomo MD Work Phone: [facility] 05-16-2021 Pfizer SARS-CoV-2 Vaccination Jerome Perdomo MD Work Phone: [facility] 04-22-2021 influenza, injectabl e, quadrivalent, contains preservative Jerome Perdomo MD Work Phone: [facility] 11-11-2020 COVID-19 vaccine, ag e 12+ yr (PFIZER-BIONTECH - PURPLE TOP) Moses Acevedo MD Work Phone: [facility] Work Phone: 10-19-2020 COVID-19 vaccine, ag e 12+ yr (PFIZER-BIONTECH - PURPLE TOP) Moses Acevedo MD Work Phone: [facility] Work Phone: 04-27-2020 influenza, seasonal, injectable Jerome Perdomo MD Work Phone: [facility] 04-22-2020 influenza, injectabl e, quadrivalent, contains preservative Moses Acevedo MD Work Phone: [facility] Work Phone: 01-05-2020 pneumococcal conjuga te vaccine, 13 valent Jerome Perdomo MD Work Phone: [facility] 04-16-2019 influenza, seasonal, injectable Jerome Perdomo MD Work Phone: [facility] 04-05-2018 influenza, seasonal, injectable Jerome Perdomo MD Work Phone: [facility] 04-12-2017 influenza, seasonal, injectable Jerome Perdomo MD Work Phone: [facility] 04-28-2016 influenza, seasonal, injectable Jerome Perdomo MD Work Phone: [facility] 05-03-2015 zoster vaccine, live Neri Acevedo MD Work Phone: [facility] Work Phone: 03-30-2015 influenza, seasonal, injectable Jerome Perdomo MD Work Phone: [facility] 05-01-2014 influenza, seasonal, injectable Jerome Perdomo MD Work Phone: [facility] 05-03-2013 influenza, seasonal, injectable Jerome Perdomo MD Work Phone: [facility] 04-02-2012 influenza, seasonal, injectable Jerome Perdomo MD Work Phone: [facility] 05-02-2011 influenza, seasonal, injectable Jerome Perdomo MD Work Phone: [facility] 06-07-2010 influenza, seasonal, injectable, preservative free Jerome Perdomo MD Work Phone: [facility] 06-07-2010 pneumococcal polysaccharide vaccine, 23 valent Jerome Perdomo MD Work Phone: [facility] 06-07-2010 Nettiesole mejia DO Work Phone: [facility] 06-10-2009 novel influenza-H1N1 -09, preservative-free, injectable Moses Acevedo MD Work Phone: [facility] Work Phone: 05-26-2009 influenza, seasonal, injectable, preservative free Jerome Perdomo MD Work Phone: [facility] 05-26-2009 Nettie mejia DO Work Phone: [facility] 05-06-2007 influenza, seasonal, injectable Jerome Perdomo MD Work Phone: [facility] 07-02-2001 influenza, seasonal, injectable Moses Acevedo MD Work Phone: [facility] Work Phone: 05-12-1999 influenza, seasonal, injectable Moses Acevedo MD Work Phone: [facility] Work Phone: 05-06-1998 influenza, seasonal, injectable Moses Acevedo MD Work Phone: [facility] Work Phone: Payers Date Payer Category Payer Medicare supplementa l policy (as second payer) [id number] 2021 Unknown 2020 Private Health Insurance [facility] AARP SUPPLEMENT [id number] 2020-Present [phone] [address] [place] [address] Indemnity [id number] 2020 Private Health Insurance [facility] AARP SUPPLEMENT [id number] 2020-Present [phone] [address] [place] [address] Indemnity [id number] 2020 Private Health Insurance [facility] [id number] 2019 Medicare MEDICARE MEDICAR E A AND B [id number] 2019-Present [phone] [place] [address] Medicare [id number] 2019 Medicare [id number] 2019 Private Health Insurance [employer]NA [id number] 2019-Present [phone] [address] [place] [address] [id number] 2019 Medicare [id number] 2015 Unknown MEDICAL M[employer]UAL M EDICAL MUTUAL [address] xxxxxxx 2015-Present [phone] [address] [place] [address] xxxxxxx [id number] [id number] 1955 Unknown [id number] 2.16.840.1.996823.3.579. 2.66 1955 Unknown [id number] 2.16.840.1.465721.3.579. 266 1955 Unknown [id number] 2.16.840.1.240256.3.579. 2 1955 Unknown [id number] 2.16.840.1.411736.3.579. 247 1955 Unknown [id number] 2.16.840.1.092021.3.579. 2 1955 Unknown [id number] 2.16.840.1.980935.3.579. 2 1955 Unknown [id number] 2.16.840.1.804031.3.579. 2 1955 Unknown [id number] 2.16.840.1.168566.3.579. 2 1955 Unknown [id number] 2.16.840.1.459103.3.579. 2 1955 Unknown [id number] 2.16.840.1.916565.3.579. 247 1955 Unknown [id number] 2.16.840.1.589885.3.579. 2 1955 Unknown [id number] 2.16.840.1.647301.3.579. 247 1955 Unknown [id number] 2.16.840.1.484561.3.579. 2.479 1955 Unknown [id number] 2.16.840.1.417507.3.579. 2.479 1955 Unknown [id number] 2.16.840.1.557914.3.579. 2.479 1955 Unknown [id number] 2.16.840.1.649804.3.579. 2.479 1955 Unknown [id number] 2.16.840.1.277651.3.579. 2.479 1955 Unknown [id number] 2.16.840.1.155252.3.579. 2.479 Social History Date Type Detail Facility Start: 09-03-2018 End: 04-06-2022 Tobacco smoking status MNIS Never smoker [facility] Start: 09-03-2018 End: 05-17-2025 Alcohol intake No [facility] Start: 1955 Sex Assigned At Not on file M [place], [place] Start: 04-03-2019 End: 12-22-2024 Alcohol intake Current non-drinker of alcohol (finding) [place], [place] Start: 04-03-2019 End: 04-06-2022 Tobacco use and exposure Never used [place], [place] Start: 08-31-2020 End: 04-11-2023 Exposure to SARS-CoV-2 (event) Not sure [facility] Work Phone: Start: 12-20-2022 End: 05-17-2025 History of Social function [facility] National Score (1-10 0), lower number is lower risk 20 [facility] Start: 02-20-2022 Sex Female (finding) [facility] Within the last year , have you been afraid of your partner or ex-partner? No [facility] How often to you hav e a drink containing alcohol? Never [facility] Start: 1955 Sex assigned at Female S [facility] Start: 11-01-2024 Gender identity Identifies as female gender (finding) [facility] (I/We) worried wheth er (my/our) food would run out before (I/we) got money to buy more. Never true [facility] In the past 12 month s, was there a time when you were not able to pay the mortgage or rent on time? Yes [employer] Medical Equipment Procedure Code Equipment Code Equipment Origin al Text Equipment Identifier Dates 1 each by In Vit ro route 2 times daily As needed. [id number] Start: 12-01-2015 End: 03-27-2017 1 each by Does n ot apply route daily [id number] Start: 12-01-2015 End: 03-27-2017 1 each by In Vit ro route 2 times daily As needed. [id number] Start: 02-22-2018 End: 10-01-2020 1 each by Does n ot apply route daily [id number] Start: 03-27-2017 TEST 3 TIMES DAILY [id number] Start: 10-01-2020 USE TO TEST BLOO D GLUCOSE 3 TIMES DAILY [id number] Start: 10-01-2020 Test 2-3 times a day & as needed for symptoms of irregular blood glucose. Dispense sufficient amount for indicated testing frequency plus additional to accommodate PRN testing needs. [id number] Start: 10-01-2020 End: 10-01-2020 1 each by Does n ot apply route 3 times daily [id number] Start: 10-01-2020 End: 10-01-2020 Lens Acrysof Ultrasert +15.5 Diopter Acrylic Iol 1 Piece Foldable Uv Blue - [id number] Start: 11-22-2021 Lens Acrysof Ultrasert +16.5 Diopter Acrylic Iol 1 Piece Foldable Uv Blue - [id number] Start: 12-06-2021 TEST 4 TIMES NEO LY and prn [id number] Start: 04-29-2021 USE TO TEST BLOO D GLUCOSE 3 TIMES DAILY [id number] Start: 04-08-2021 BD Insulin Syrin ge U/F 30G X 1/2 0.5 ML misc [id number] Start: 03-08-2022 End: 01-19-2023 USE DIRECTED FOUR TIMES DAILY [id number] Start: 06-22-2022 End: 11-06-2023 Use as instructed [id number] Start: 07-07-2022 End: 07-07-2023 2 times daily wi th insulin [id number] Start: 01-19-2023 Use as instructe d 2 times daily [id number] Start: 05-09-2023 End: 11-06-2023 1 each by Other route 4 times daily. As directed [id number] Start: 11-06-2023 Use as instructe d 2 times daily [id number] Start: 11-06-2023 Functional Status Date Assessment Result Facility [facility] Clinical Notes 05-21-2017 to 05-19-2025 Cuauhtemoc Machado DO - 05/19/2025 3:06 PM EDTDischarge InstructionsDischarge Instr - [facility] Coord[facility] - Acacia Ocampo RN - 05/19/2025 1:[address] - 05/19/2025 1:45 PM EDT Note Date & Type Note Facility 05-19-2025 Note [facility] Hospital course Narrative Hospitalist Discharge Summary Dameon Potter : 1955 Admit date: 05/11/2025 Discharge date: 05/19/2025 Admitting Physician: Jennifer Taylor DO Primary Care Physician: Christy Rizzo MD Visit Status: Inpatient Code Status: DNR-CCA BRIEF HOSPITAL COURSE: 70-yo F, PMHx for stage II grade 1 endometrial cancer who was treated with robotic hysterectomy, lymph node sampling and adjunctive radiotherapy, atrial fibrillation with RVR, difficult to control diabetes, moderate aortic stenosis, hypertension, dyslipidemia, hypothyroidism, chronic lymphedema, she also has a tendency for malabsorption due to history of gastric bypass RADHA, GERD, asthma, & diastolic heart failure admitted on 05/11/2025 after multiple falls and functional decline. Workup revealed no infectious source; C. difficile and blood/urine cultures were negative, and antibiotics (vancomycin, Zosyn) were discontinued. Cardiology evaluated for A-fib and rheumatic murmur--no acute intervention needed; patient to continue metoprolol and Eliquis with outpatient echocardiographic follow-up. Patient clinically improved and was discharged to [facility] with close outpatient follow-up. Acute, acute on chronic, unstable/uncontrolled chronic problems/discharge diagnoses: # Sepsis secondary to urinary tract infection/cellulitis: Cx still with no growth; will deescalate Abx as appropriate - d'art Vancomycin 05/12 and Cefepime 05/13 - Off ABX # Gluteal and Groin wounds - Goel present and to maintain to avoid wound contamination - Should attempt voiding trial while at [facility] # Hypokalemia: Resolved # Mild DKA: Resolving, LA normal at 1.1 # SAÚL: Resolved # Hypomagnesemia: Resolved # Hypoalbuminemia Stable chronic problems affecting care, new non-acute discharge diagnoses: stage II grade 1 endometrial cancer Monitor for recurrence atrial fibrillation with RVR Metoprolol/Eliquis for rate control and anticoagulation moderate aortic stenosis Recommend outpatient echocardiogram Hypertension Cont Losartan 50 mg daily, started 05/14 Dyslipidemia Cont statin Hypothyroidism Levothyroxine ordered chronic lymphedema Wound care following, apprec recs elevate legs Medical History[1] Procedures: NA Hospital Course: See discharge diagnoses list above and medication adjustments below in med rec.The patient is discharged in improved and stable condition. Consults: INPATIENT CONSULT TO WOUND CARE PROVIDERS IP CONSULT TO WOUND PREVENTION IP CONSULT TO CARDIOLOGY Discharge Instructions: Diet: Dietary Orders (From admission, onward) Start Ordered 05/13/25 1408 Adult diet Regular; 4 carb choices (60 gm/meal) Diet effective now Question Answer Comment Diet type Regular Carbohydrate restriction: 4 carb choices (60 gm/meal) 05/13/25 1407 05/13/25 1408 Supplement:HS Snack; Ensure Max Protein Until discontinued Question Answer Comment Frequency HS Snack Select supplement: Ensure Max Protein 05/13/25 1407 Activity: as tolerated Recommended Outpatient Tests: Disposition: Patient discharged in stable condition to acute rehab. Greater than 31 minutes spent discharging the patient and coming up with patient discharge plan. Vitals: BP (!) 161/84 Pulse 63 Temp 36.7 C (98.1 F) (Temporal) Resp 16 Ht 5' 6 (1.676 m) Wt 206 lb 2.1 oz (93.5 kg) SpO2 97% BMI 33.27 kg/m Pulse Ox: SpO2 Av % Min: 97 % Max: 97 % Supplemental O2: Physical Exam GENERAL: Elderly white female appearing chronically sick and older than stated age HEENT: normocephalic, non-traumatic NECK: trachea midline HEART: RRR, normal S1 and S2 LUNGS: non labored, no wheeze ABD: non distended, soft, non tender MSK: Mild edema in lower extremity SKIN: warm, dry, no rash NEURO: appropriate affect / AXO3 LABS: Recent Labs 05/17/25 0348 05/18/25 0559 05/19/25 003 NA 135* 135* 136 K 4.3 4.3 4.3 CL 109* 108* 107 CO2 20* 21* 22* BUN 21 20 18 CREATININE 0.64 0.65 0.59 GLUCOSE 127* 136* 116* CALCIUM 7.9* 8.3* 8.2* Recent Labs 05/17/25 0557 05/18/25 0559 05/19/2536 WBC 8.3 7.8 7.6 RBC 3.43* 3.51* 3.37* HGB 10.3* 10.4* 10.0* HCT 31.7* 32.8* 31.3* MCV 92.4 93.4 92.9 MCH 30.0 29.6 29.7 MCHC 32.5 31.7 31.9 RDW 13.3 13.3 13.3 PLT 293 282 291 MPV 11.1 11.5 11.3 Discharge Medications: Medication List START taking these medications acetaminophen 325 MG tablet Commonly known as: Tylenol Take 2 tablets (650 mg) by mouth every 6 hours as needed for mild pain (1-3) or fever (For temp greater than 100.4 F (38 C)) for up to 10 days. chlorhexidine 4 % external solution Commonly known as: Hibiclens Apply topically 2 times daily. loperamide 2 MG capsule Commonly known as: Imodium Take 1 capsule (2 mg) by mouth 4 times daily as needed for diarrhea for up to 10 days. losartan 50 MG tablet Commonly known as: Cozaar Take 1 tablet (50 mg) by mouth daily. Start taking on: May 20, 2025 miconazole 2 % powder Commonly known as: Micotin Apply topically 2 times daily. CHANGE how you take these medications insulin glargine 100 UNIT/ML injection Commonly known as: Lantus Inject 16 Units under the skin Nightly. What changed: how much to take metoprolol tartrate 25 MG tablet Commonly known as: Lopressor Take 1 tablet (25 mg) by mouth 2 times daily. What changed: medication strength how much to take CONTINUE taking these medications apixaban 5 MG tablet Commonly known as: Eliquis Take 1 tablet (5 mg) by mouth 2 times daily. atorvastatin 40 MG tablet Commonly known as: Lipitor BD Insulin Syringe U/F 30G X 1/2 0.5 ML misc Generic drug: insulin syringe-needle U-100 2 times daily with insulin brimonidine 0.1 % ophthalmic solution Commonly known as: AlphaGAN P cholecalciferol 25 MCG (1000 UT) capsule Commonly known as: Vitamin D-3 citalopram 20 MG tablet Commonly known as: CeleXA FreeStyle Satya 3 Sensor misc 1 Device every 14 (fourteen) days. Insulin Lispro 100 UNIT/ML solution injection Commonly known as: Humalog Inject 8 Units under the skin 3 times daily (with meals). insulin pen needle 32G X 4 MM misc Use as instructed 2 times daily levothyroxine 175 MCG tablet Commonly known as: Synthroid, Levoxyl Take 1 tablet (175 mcg) by mouth every morning (before breakfast). multivitamin tablet timolol 0.5 % ophthalmic solution Commonly known as: Timoptic STOP taking these medications albuterol 108 (90 Base) MCG/ACT inhaler EPINEPHRINE HCL (ANAPHYLAXIS) IM FREESTYLE LITE test strip Generic drug: glucose blood glucose 4 g chewable tablet melatonin 5 MG tablet metFORMIN (OSM) 500 MG 24 hr tablet Commonly known as: Fortamet Where to Get Your Medications Information about where to get these medications is not yet available Ask your nurse or doctor about these medications acetaminophen 325 MG tablet chlorhexidine 4 % external solution insulin glargine 100 UNIT/ML injection loperamide 2 MG capsule losartan 50 MG tablet metoprolol tartrate 25 MG tablet miconazole 2 % powder Recommended Follow-up: No follow-up provider specified. Complexity of Follow up: [] Moderate Complexity: follow up within 7-14 calendar days (22391) [x] Severe Complexity: follow up within 7 calendar days (86392) Follow up Testing, Pending results or Referrals at Transitional Care Visit: [x] yes [] no Instructions to MA: Please call patient on day after discharge (must document patient contacted within 2 business days of discharge). Follow up questions for MA: 1. Did you get medications filled and taking them as instructed from discharge? 2. Are you following your discharge instructions from your hospital stay? 3. Please confirm patient is scheduled for a follow up appointment within the above time frame. Signed: Cuauhtemoc Machado DO Division of Hospitalist Medicine [facility] 05/19/2025, 3:06 PM [1] Past Medical History: Diagnosis Date Anxiety Asthma (HHS/HCC) Atrial fibrillation (HCC) Deficiency of nutrient elements Depression Dry eye Endometrial cancer (HCC) 09/30/2020 Fatigue Gastritis GERD (gastroesophageal reflux disease) Glaucoma Hyperlipidemia Hypertension Hypothyroidism Incontinence Intestinal malabsorption (HHS/HCC) Lymph edema Morbid obesity (CMS/HCC) Obstructive sleep apnea PMB (postmenopausal bleeding) Polycystic ovarian syndrome Psoriasis SOB (shortness of breath) on exertion Thyroglossal duct cyst Type 2 diabetes mellitus without complication (HCC) Urinary tract infection Uterine cancer (HCC) Vitamin D deficiency 05/10/2017 Zinc deficiency 06/21/2018 documented in this encounter [facility] 05-19-2025 Hospital Discharge instructions Cuauhtemoc Machado DO - 05/19/2025 2:11 PM EDT Please obtain an ECHO as outpatient. Kat Jiménez RN - 05/19/2025 11:53 AM EDT Images from the original note were not included. Continuity of Care Form Patient Name: Dameon Potter : 1955 Admit date: 05/11/2025 Discharge date: 05/19/2025 Code Status Order: DNR-CCA Advance Directives: Y Admitting Physician: Jennifer Taylor DO PCP: Christy Rizzo MD Discharging Nurse: Kat LAURA Discharging Hospital Unit/Room#: N4-458/N4-458 A Discharging Unit Phone Number: [phone] Emergency Contact: Extended Emergency Contact Information Primary Emergency Contact: Roe Melendrez Mobile Relation: Niece Secondary Emergency Contact: Jose Potter Mobile Relation: Sibling Past Surgical History: Past Surgical History: Procedure Laterality Date CATARACT EXTRACTION Bilateral CHOLECYSTECTOMY 01/29/2018 w/ LRYGB and Umbilical Hernia repair - [facility] DILATION AND CURETTAGE OF UTERUS 09/03/2020 with hysteroscopy GASTRIC BYPASS 01/29/2018 LRYGB w/ Lap Aggie and Umbilical Hernia repair, [facility] GASTRIC BYPASS HYSTERECTOMY 09/30/2020 [facility]; Dr. Cuauhtemoc Stubbs MOUTH SURGERY gum removal to expose wisdom teeth THYROGLOSSAL DUCT EXCISION 2000 [facility]- Dr. Vin Keating THYROIDECTOMY thyroid cyst UMBILICAL HERNIA REPAIR 01/29/2018 w/ LRYGB and Lap Aggie - [facility] UPPER GASTROINTESTINAL ENDOSCOPY 03/20/2017 pre op, [facility] WISDOM TOOTH EXTRACTION 2013 [facility] Immunization History: Immunization History Administered Date(s) Administered Covid-19, Pfizer Bivalent Booster, (Age 12y+), Im, 30 Mcg/0e 04/17/2022 Covid-19, Pfizer Mo Top, Do Not Dilute, (Age 12 Y+), Im, L 11/15/2021 Influenza, High-dose Seasonal, Quadrivalent, Preservative Free 04/17/2022 Influenza, injectable, quadrivalent 04/22/2020, 04/22/2021 Influenza, seasonal, injectable 05/06/1998, 05/12/1999, 07/02/2001, 05/06/2007, 05/02/2011, 04/02/2012, 05/03/2013, 05/01/2014, 03/30/2015, 04/28/2016, 04/12/2017, 04/05/2018, 04/16/2019, 04/27/2020 Influenza, seasonal, injectable, preservative free 05/26/2009, 06/07/2010 Novel [id number], preservative-free 06/10/2009 Pfizer SARS-CoV-2 Vaccination 10/19/2020, 11/11/2020, 05/16/2021 Pneumococcal Conjugate PCV 13 01/05/2020 Pneumococcal Polysaccharide PPSV23 06/07/2010, 09/13/2021 Zoster, live 05/03/2015 Active Problems: Medical Problems Problem List * (Principal) Pressure injury of right buttock, stage 2 (CMS/HCC) Cortical cataract of both eyes Diabetic retinopathy associated with type 2 diabetes mellitus (HCC) Dry eye syndrome of bilateral lacrimal glands Malignant neoplasm of uterus (HCC) Malnutrition of mild degree (Bianchi: 75% to less than 90% of standard weight) (HCC) Moderate recurrent major depression (CMS/HCC) Nuclear sclerotic cataract, bilateral Posterior subcapsular age-related cataract of left eye Postmenopausal bleeding Primary open angle glaucoma of both eyes, mild stage Chronic sinusitis Overview Signed 07/05/2022 7:23 AM by Carly Yates MA This term is a replacement for an inactive term Thyroglossal duct cyst Type 2 diabetes mellitus with hyperglycemia (HCC) Corneal epithelial basement membrane dystrophy Lymphedema of both lower extremities MDD (major depressive disorder) Urinary incontinence Asthma (HHS/HCC) Chronic rhinitis RADHA (obstructive sleep apnea) Polycystic ovarian syndrome Severe malnutrition (CMS/HCC) (HCC) (Chronic) Cognitive decline Atrial fibrillation (HCC) Moderate aortic stenosis Poor sleep hygiene Cellulitis of lower extremity Weight gain Endometrial cancer (HCC) OAB (overactive bladder) Overview Signed 05/04/2022 11:13 PM by Interface, Incoming Problems- [facility] Conversion Plan repeat injection mid-april with 150 units of Botox. Hepatic steatosis Calculus of gallbladder with chronic cholecystitis without obstruction Vitamin D deficiency Morbid obesity (CMS/HCC) Hypothyroidism Essential hypertension, benign Mixed hyperlipidemia Debility Gastroesophageal reflux disease without esophagitis Isolation/Infection: No active isolations No active infections Nurse Assessment: Last Vital Signs: BP (!) 161/84 Pulse 63 Temp 36.7 C (98.1 F) (Temporal) Resp 16 Ht 1.676 m (5' 6) Wt 93.5 kg (206 lb 2.1 oz) SpO2 97% BMI 33.27 kg/m Last documented pain score (0-10 scale): Last Weight: Wt Readings from Last 1 Encounters: 05/14/25 93.5 kg (206 lb 2.1 oz) Mental Status: CHARLEY Patient Mental Status: oriented and alert IV Access: CHARLEY IV Access: None Nursing Mobility/ADLs: Walking Total assistance Transfer Total assistance Bathing Minimal assistance Dressing Minimal assistance Toileting Minimal assistance Feeding Minimal assistance Clinical Cytogeneticist Minimal assistance Med Delivery no Wound Care Documentation and Therapy: Wound/Incision 11/02/24 Calf Anterior;Right (Active) Number of days: 197 Wound/Incision 05/12/25 Pressure Injury Sacrum (Active) Site Assessment Dry;Fragile;Bleeding 05/19/25 0800 Susan-Wound Assessment Bleeding;Dry;Excoriated 05/19/25 0800 Drainage Description Serosanguineous 05/15/25 0408 Odor None 05/16/25 2100 Drainage Amount Scant 05/19/25 0800 Treatments Cleansed;Site care;Pharmaceutical agent 05/19/25 08 Primary Dressing Open to air 05/19/25 0800 Number of days: 7 Elimination: Continence: Bowel: no Bladder: yes Urinary Catheter: Insertion date: 05/12/2025 Colostomy/Ileostomy/Ileal Conduit: None Date of Last BM: 05/18/2025 Intake/Output Summary (Last 24 hours) at 05/19/2025 1152 Last data filed at 05/18/2025 2130 Gross per 24 hour Intake -- Output 2950 ml Net -2950 ml I/O last 3 completed shifts: In: - (0 mL/kg) Out: 2950 (31.6 mL/kg) [Urine:2950 (0.9 mL/kg/hr)] Weight: 93.5 kg Safety Concerns: at risk for falls Impairments/Disabilities: none Nutrition Therapy: Current Nutrition Therapy: Oral diet: carb control 4 carbs/meal (1800kcals/day) Routes of Feeding: oral Liquids: no restrictions Daily Fluid Restriction: no Last Modified Barium Swallow with Video (Video Swallowing Test): not done Treatments at the Time of Hospital Discharge: Respiratory Treatments: none Oxygen Therapy: is not on home oxygen therapy. Ventilator: No ventilator support Rehab Therapies: physical therapy and occupational therapy Weight Bearing Status/Restrictions: no restriction Other Medical Equipment (for information only, NOT a DME order): walker Other Treatments: none Patient's personal belongings (please select all that are sent with patient): glasses RN SIGNATURE: MANAGEMENT/SOCIAL WORK SECTION Inpatient Status Date: 05/11/2025 Discharging to Facility/ Agency [facility] [address] [place] [address] Domestic Laundry Worker/Domestic Violence Advocate signature: ICIAN SECTION Name: Dameon Potter Prognosis: good Condition at Discharge: stable Rehab Potential (if transferring to Rehab): good Recommended Labs or Other Treatments After Discharge: Please obtain CBC/CMP in 3-5 days The individual is being admitted to a nursing facility directly from an [facility] or a unit of a [facility] that is not operated by or licensed by [facility] under section 5119.14 or 5160-3-15.1 5 The individual requires the level of services provided by a nursing facility for the condition for which he or she was treated in the hospital and, Physician Certification: I certify the above information and transfer of Dameon Potter is necessary for the continuing treatment of the diagnosis listed and that she requires acute rehab for less than 30 days. Update Admission H&P: No change in H&P PHYSICIAN SIGNATURE: documented in this encounter [facility] 05-19-2025 Miscellaneous Notes Care Management Progress Note Short Medical why still here: Pt accepted to [facility]. Bed availability today. Patient, medical team updated. [facility] clinical science liaison updated. Patient and team updated. Tasked INTERNET PROJECT MANAGER to send updated med rec and MAR. Updated pt's JENNIFER Nieves. Planned Discharge Disposition: Inpatient Rehab Facility [facility] Barriers/Today we still Wait: Physician discharge work flow. Length of Stay (Days): 8 GMLOS: No GMLOS Documented TCC to follow for discharge needs. Patient Choice Patient Name: DAMEON POTTER Date of : 1955 All Providers Sent Referral Name: [facility] Phone: [phone] Address: [address] [id number] Name: [facility] Address: [address] [place] [address] Confirmed pickup time of 6:00pm on 05/19/25 by [employer] at phone number [phone]. Location of facility drop off is [facility]. [facility], TCC notified on secure chat. Discharge med list transmitted to [facility] via [facility] per TCC request. Referral placed to [facility] per TCC request. Await review and response regarding ability to accept. TCC notified. [facility] unable to accept. Referral placed to [facility]. Referral placed to [facility] via [facility] per TCC request. Await review and response regarding ability to accept. TCC notified. Care Management Progress Note Short Medical why still here: placement Planned Discharge Disposition: (SNF vs IPR if appropriate) Met with pt to discuss disch plan. PT rec SNF, pt has Medicare and meets admission criteria for acute rehab per [facility] business liaison officer. Pt prefers [facility] as it is closer to family. If they are unable to accept she is agreeable to [facility]. Referral created to [facility]. Barriers/Today we still Wait: Patient/caregiver facility choice Length of Stay (Days): 7 GMLOS: No GMLOS Documented SDOH received for housing. Sw spoke with pt who reports she lives alone and it is hard for her to drive due to a lymphedema. Pt is interested in moving to a facility. She is not sure if [place] is appropriate and not exactly sure of what she is looking for. She is open to going to snf and if she needs to transition to ECF would be willing. SW explained that this information can be provided to the snf she dc to, that way she can be assessed after receiving therapy. Pt does have support in friends who assist in going to the store and completing task around the home and going to the store. Message sent to commercial development manager to provide update and request for snf list in [place]. Pt agreeable to referral in case she would be able to return home after snf stay. Referral made. Met with patient at bedside, patient is agreeable to SNF placement. [facility]ained Medicare [facility]. All questions answered. Patient had poor experience at [facility] in the past, would not like to return here. Patient asked to review the list over the weekend. CM to follow up for choices on Sunday. Confirmed with patient at the bedside that she lives alone, is able to drive, however recently she has been having a Friend drive her, has a wheelchair, walker and rollator and that her Niece is POA and her PCP is Dr. Case Rizzo. Discharge plan home. documented in this encounter [facility] 05-19-2025 History of Present illness Narrative Nutrition Assessment Type and Reason for Visit: Reassess Nutrition Recommendations/Plan: Continue Adult diet Regular; 4 carb choices (60 gm/meal) Supplement(s): continue chocolate ensure max protein HS snack (provides 150 kcals, 30 grams protein, 11 oz per serving) Will continue to monitor labs, meds, oral and/or alternate route of nutrition tolerance, skin integrity, fluid status, wt trends, and overall nutrition status - RD to follow weekly. Malnutrition Assessment: Malnutrition Status: Insufficient data Context: Acute Illness Nutrition Assessment: LOS# 8. 70F w/ PMHx: Afib w/ RVR, difficult to control diabetes (she admits that she does not take her Lantus as prescribed as she feels that it is too much normally), moderate , HTN, dyslipidemia, hypothyroidism, chronic lymphedema, RADHA, GERD, asthma, diastolic heart failure, stage II grade 1 endometrial cancer s/p robotic hysterectomy, lymph node sampling and adjunctive radiotherapy, more recently she was found to have some lung nodules; She also has a tendency for malabsorption due to history of gastric bypass who presented to the hospital on 05/11 d/t multiple falls and inability to care for self, perform ADLs. Lives alone and has been trying to have friends help care for her wounds but this has become more difficult. Endorses intermittent stool incontinence at night (2-3 episodes) as well as increased urinary frequency. She was admitted for sepsis 2/2 UTI/cellulitis and wounds. Mild DKA, SAÚL and hypomagnesemia resolved. Wounds are hard to keep clean d/t incontinence and location of wounds - Goel ordered and placed 05/12. Po intakes or regular diet 76-100%. CBW 201# - some wt loss is noted, however not clinically significant at this time. A1c improved since October 12.9% -> 7.3%. Pt unavailable for RD discussion x 2 attempts on admission eval. Workup revealed no infectious source (C. difficile and blood/urine cultures were negative - ATB stopped). Cardiology eval for A-fib and rheumatic murmur--no acute intervention needed. Continue metoprolol and Eliquis with OP ECHO follow-up. Remains HDS. Mild stools managed conservatively. Awaiting placement. Continues CHO controlled diet w/ HS snack ensure max for wounds. RD attempted to see pt at bedside this afternoon, however she was working with PT. She is observed on envella bed. Now with D/C orders for IP rehab facility and signed D/C summary. Nutrition Related Findings: Wound Type: Multiple (per wound care: 1.) Abdominal Fold/Groin: Fungal Dermatitis; 2.) Bilateral medial thighs: Fungal Dermatitis; 3.) Sacrum extending to bilateral buttocks: Unstageable pressure injury with MASD (bodily fluids)/fungal dermatitis); Can Scale Score: 14 Isolation Status: No active isolations Food Allergies: NKFA Teeth: Missing teeth Swallow: Able to swallow solids and liquids without difficulty Feeding: Independent Room Service: Selective Edema: Generalized Edema: Mild pitting, slight indentation, BLE Edema: Mild pitting, slight indentation Abdomen Inspection: Soft, Rounded Last BM Date: 05/18/25 Lives with: Alone Level of Consciousness: Alert; Orientation Level: Oriented X4 Code Status, Vital Signs, Oxygen Needs, I/Os: Code Status: DNR-CCA Vital Signs: Temp: 36.7 C (98.1 F); Heart Rate: 63; Resp: 16; BP: (!) 161/84; Temp: 36.7 C (98.1 F); MAP (mmHg): 110 Oxygen Therapy: None (Room air); SpO2: 97 % Net IO Since Admission: -4,251.75 mL [05/19/25 1509] Intake/Output Summary (Last 24 hours) at 05/19/2025 1509 Last data filed at 05/19/2025 1418 Gross per 24 hour Intake -- Output 3350 ml Net -3350 ml Labs/Meds Reviewed: Scheduled Meds[1] Continuous Meds[2] BMP: Recent Labs 05/17/25 0348 05/18/25 0559 05/19/25 0037 NA 135* 135* 136 K 4.3 4.3 4.3 CL 109* 108* 107 CO2 20* 21* 22* BUN 21 20 18 CREATININE 0.64 0.65 0.59 GLUCOSE 127* 136* 116* CALCIUM 7.9* 8.3* 8.2* CBC: Recent Labs 05/17/25 0557 05/18/25 0559 05/19/25 0037 WBC 8.3 7.8 7.6 HGB 10.3* 10.4* 10.0* HCT 31.7* 32.8* 31.3* MCV 92.4 93.4 92.9 PLT 293 282 291 Lab Results Component Value Date HGBA1C 7.3 (H) 05/11/2025 HGBA1C 12.9 (H) 11/02/2024 HGBA1C 12.4 04/29/2024 Recent Labs 05/17/25 1659 05/17/25 1940 05/18/25 0746 05/18/25 1154 05/18/25 1703 05/18/25 1943 05/19/25 0823 05/19/25 1132 POCGLU 203* 184* 157* 155* 122* 213* 151* 152* Current Nutrition Therapies: Adult diet Regular; 4 carb choices (60 gm/meal) Current Oral Intake Average Meal Intake: 76-100% (limited documentation) Average Supplements Intake: Unable to assess Anthropometric Measures: Height: 167.6 cm (5' 6) Current Body Weight: 93.4 kg (206 lb) Baring Body Weight (lbs) (Calculated): 130 lbs Baring Body Weight (Kg) (Calculated): 59 kg % Baring Body Weight (Calculated): 154.6 % BMI (kg/m2) (Calculated): 33.3 Weight Adjustment For: No Adjustment BMI (Calculated): 33.29 Weight: 93.5 kg (206 lb 2.1 oz) Weight Method: Bed scale Weight History: Wt Readings from Last 10 Encounters: 05/14/25 93.5 kg (206 lb 2.1 oz) 12/22/24 98 kg (216 lb) 12/08/24 100 kg (221 lb) 11/25/24 101 kg (222 lb) 11/18/24 99.3 kg (219 lb) 11/12/24 95.3 kg (210 lb 3.2 oz) 11/10/24 95.3 kg (210 lb 3.2 oz) 11/06/24 96.6 kg (213 lb) 11/05/24 98.9 kg (218 lb) 03/26/24 116 kg (255 lb 4.8 oz) Nutrition Interventions: Food and/or Nutrient Delivery: Continue Current Diet and Continue Oral Nutrition Supplement Nutrition Education/Counseling: No recommendation at this time Coordination of Nutrition Care: Continue to monitor while inpatient Goals: Previous Goal Met: Progressing toward Goal(s) Goals: Meet at least 75% of estimated needs Nutrition Monitoring and Evaluation: Behavioral-Environmental Outcomes: None Identified Food/Nutrient Intake Outcomes: Food and Nutrient Intake, Supplement Intake Physical Signs/Symptoms Outcomes: Biochemical Data, Weight, Skin Discharge Planning: Continue current diet, Continue Oral Nutrition Supplement Sharon Aceves MS, RD, LD Contact: or [employer] Chat (dial *[phone] from hospital phone) [1] apixaban, 5 mg, Oral, BID atorvastatin, 40 mg, Oral, Daily brimonidine, 1 drop, Both Eyes, BID chlorhexidine, , Topical, BID cholecalciferol, 50 mcg, Oral, Daily citalopram, 20 mg, Oral, Daily insulin glargine, 16 Units, SubCUTAneous, Nightly insulin lispro, 0-12 Units, SubCUTAneous, TID WC And insulin lispro, 0-12 Units, SubCUTAneous, Nightly Insulin Lispro, 4 Units, SubCUTAneous, TID WC levothyroxine, 175 mcg, Oral, qAM AC losartan, 50 mg, Oral, Daily metoprolol tartrate, 25 mg, Oral, BID miconazole, , Topical, BID sodium chloride 0.9%, 10 mL, IntraVENous, 2 times per day stomahesive in petrolatum, , Topical, BID therapeutic multivitamin-minerals, 1 tablet, Oral, Daily timolol, 1 drop, Both Eyes, BID [2] Images from the original note were not included. PHYSICAL THERAPY [facility] Treatment Note Name/MRN: Dameon Potter ([id number]) Date of : 1955 Age: 70 y.o. Room/Bed: N4-458/N4-458 A Discharge Recommendation: Half-Way Facility Prior Level of Function Prior Level of ADL Function: Required Assist Prior Level of Mobility: Independent; Device: Front wheeled walker Prior Level of Transfers: Independent Assessment Pt requires mod assist for bed mobility, min assist to CGA for sitting balance. No PT goals met this session. Recommend SNF at discharge. Subjective Pt is supine in the bed, agrees to PT. Pain: Pt denies any current pain. Medical Precautions: No active isolations Proper PPE donned/doffed in accordance with facility standards. Fall Risk: Mcleod Fall Risk Score: 50 (Low Risk) Mcleod Fall Risk Score: 50 (High Risk) Precautions/Restrictions: Fall Precautions Overall Cognitive Status: WFL Overall Orientation Status: Oriented to Place and Oriented to Person Family/Caregiver Present: none Objective Bed Mobility Supine to sit: Mod Assist Sit to supine: Mod Assist Rolling to right: Mod Assist Rolling to left: Mod Assist Scooting: Max Assist, x2 Person Assist Balance During Session: Pt sat at EOB with min assist to CGA Exercises Exercises Quad Sets: x 10 Heelslides: x 8 Gluteal Sets: x 10 Hip Abduction: x 10 Knee Long Arc Quad: x 5 Ankle Pumps: x 10 Plan Continue acute PT per plan of care. Safety/Education Safety Safety Devices in place: All fall risk precautions in place, call light within reach, left in bed, patient at risk for falls, and no alarms engaged upon entry Restraints: No Education Education Given To: patient Education Provided: PT Role, PT Goals, Plan of Care, and Discharge Recommendations Education Method: Verbal Barriers to Learning: None Education Outcome: Continued Education Needed Outcome Measures AM-[facility] Scale: Sat at edge of bed Goals Patient Stated Goal: to get better overall Encounter Problems Encounter Problems (Active) Mobility Patient will ambulate 75 feet with modified independence and least restrictive device in order to improve safety and independence with mobility. (Not Addressed) Start: 05/14/25 Expected End: 05/29/25 Transfers Patient will perform bed mobility with independence in order to improve independence and prepare for out of bed mobility. (Progressing) Start: 05/14/25 Expected End: 05/29/25 Patient will complete functional transfer with least restrictive device with modified independence in order to prepare for ambulation. (Not Addressed) Start: 05/14/25 Expected End: 05/29/25 Therapy Time Individual Co-treatment Time In 1108 Time Out 1134 Minutes 26 Timed Code Treatment Minutes: (FA, TP) Margie Espinosa PTA Cosigned by Jarrett Alcantara PT at 05/19/2025 2:11 PM EDT Hospitalist Progress Note 05/18/2025 Subjective: Admit Date: 05/11/2025 PCP: Christy Rizzo MD Room#: N4-458/N4-458 A BRIEF HOSPITAL COURSE: 70-yo F, PMHx for stage II grade 1 endometrial cancer who was treated with robotic hysterectomy, lymph node sampling and adjunctive radiotherapy, more recently she was found to have some lung nodules. Her other medical history includes atrial fibrillation with RVR, difficult to control diabetes (she admits that she does not take her Lantus as prescribed as she feels that it is too much normally), moderate aortic stenosis, hypertension, dyslipidemia, hypothyroidism, chronic lymphedema, she also has a tendency for malabsorption due to history of gastric bypass RADHA, GERD, asthma, & diastolic heart failure. Admitted to the hospital on 05/11/2025 due to multiple falls and inability to care for herself/bathe/perform ADLs, endorsed intermittent stool incontinence at night (2-3 episodes) as well as increased urinary frequency, C. difficile negative on admission, initially on Vanco and Zosyn but discontinued following negative blood and urine cultures. Cardiology followed for history of A-fib with RVR, rheumatic heart fever history with murmur with and recommended no intervention at this time but will follow-up outpatient for further recommendations. Patient has been stable and is awaiting placement. Blood Cxs prelim results with no growth, final results pending.Urine negative Interval History: 05/17 ON: No acute overnight events This AM: Patient laying in bed in no obvious distress, no CP, SOB, or Dizziness. -Cardiology recommendations appreciated: cont metoprolol and Eliquis, will get serial ECHO as an OP for further recommendations. 05/17 ON: No acute events This AM: Laying in bed in no obvious distress, denies any CP, SOB, Dizziness or lightheadedness h/v endorsed some loose stool -Paged earlier on by her RN for increased BM X3 in the last 24 hrs, initial stool culture -ve for C diff. Ok to give imodium and monitor as ordered on 05/13 -Awaiting placement Case and plan discussed with patient and bedside nurse. All questions answered. Adult diet Regular; 4 carb choices (60 gm/meal) 24HR INTAKE/OUTPUT: No intake or output data in the 24 hours ending 05/18/25 0551 Past Medical History: Medical History[1] LABS: CBC: Recent Labs 05/16/25 0503 05/17/25 0557 WBC 8.4 8.3 RBC 3.59* 3.43* HGB 10.6* 10.3* HCT 33.5* 31.7* MCV 93.3 92.4 RDW 13.2 13.3 PLT 305 293 BMP: Recent Labs 05/16/25 0503 05/17/25 0348 NA 137 135* K 3.8 4.3 CL 110* 109* CO2 21* 20* BUN 17 21 CREATININE 0.70 0.64 GLUCOSE 98 127* CALCIUM 8.2* 7.9* ANIONGAP 6 6 LIVER PROFILE: No results for input(s): AST, ALT, BILITOT, ALKPHOS, PROT in the last 72 hours. No lab exists for component: LABALBU PT/INR: No results for input(s): PROTIME, INR in the last 72 hours. CARDIAC ENZYMES: No results for input(s): TROPONINI in the last 72 hours. Procalcitonin: No results found for: PROCAL COVID-19 PCR: No results for input(s): COVID19 in the last 72 hours. Objective: Vitals: BP 128/95 (BP Location: Right arm, Patient Position: Sitting) Pulse 62 Temp 36.5 C (97.7 F) (Temporal) Resp 16 Ht 5' 6 (1.676 m) Wt 206 lb 2.1 oz (93.5 kg) SpO2 96% BMI 33.27 kg/m Pulse Ox: SpO2 Av % Min: 96 % Max: 96 % Supplemental O2: Physical Exam Vitals and nursing note reviewed. Constitutional: Appearance: Normal appearance. HENT: Head: Normocephalic and atraumatic. Right Ear: External ear normal. Left Ear: External ear normal. Mouth/Throat: Mouth: Mucous membranes are moist. Eyes: Conjunctiva/sclera: Conjunctivae normal. Cardiovascular: Rate and Rhythm: Normal rate. Pulmonary: Effort: Pulmonary effort is normal. No respiratory distress. Abdominal: Tenderness: There is no abdominal tenderness. Musculoskeletal: Cervical back: Neck supple. Comments: See media for wound pictures Neurological: Mental Status: She is alert and oriented to person, place, and time. Psychiatric: Behavior: Behavior normal. Medications: Scheduled PRN Scheduled Meds[2] PRN Meds[3] Continuous Continuous Meds[4] Assessment Acute, acute on chronic, unstable/uncontrolled chronic problems/diagnoses: Sepsis secondary to urinary tract infection/cellulitis: Cx still with no growth; will deescalate Abx as appropriate -d'art Vancomycin 05/12 and Cefepime 05/13 Gluteal and Groin wounds -goel drinage to avoid wound contamination. Hypokalemia: Resolved Mild DKA: Resolving, LA normal at 1.1 SAÚL: Resolved Hypomagnesemia: Resolved Hypoalbuminemia Stable chronic problems affecting care, new non-acute diagnoses: stage II grade 1 endometrial cancer Monitor for recurrence atrial fibrillation with RVR Metoprolol/Eliquis for rate control and anticoagulation moderate aortic stenosis Recommend outpatient echocardiogram Hypertension Cont Losartan 50 mg daily, started 05/14 Dyslipidemia Cont statin Hypothyroidism Levothyroxine ordered chronic lymphedema Wound care following, apprec recs elevate legs Plan As a result of the above findings & factors, the following mgmt was pursued: - Restart Home meds as appropriate - am labs, replace lytes prn - PT/OT/CM/SW - delirium precautions: increase activity and limit nighttime disturbances - DVT prophylaxis: encourage ambulation and already anticoagulated Advance Directive: DNR-CCA Anticipated Discharge - Date - TBD - Location - Home - Pending the following - Clinical improvement Total time spent (which include face to face and non face to face encounters) : 45 minutes Toxic drug monitoring/narrow therapeutic index drug monitoring : # Drug name : none # Route administered :na # Method of monitoring : na Extended Emergency Contact Information Primary Emergency Contact: Roe Melendrez Mobile Relation: Niece Secondary Emergency Contact: Jose Potter Mobile Relation: Sibling Alber Gil DO [facility] [1] Past Medical History: Diagnosis Date Anxiety Asthma (HHS/HCC) Atrial fibrillation (HCC) Deficiency of nutrient elements Depression Dry eye Endometrial cancer (HCC) 09/30/2020 Fatigue Gastritis GERD (gastroesophageal reflux disease) Glaucoma Hyperlipidemia Hypertension Hypothyroidism Incontinence Intestinal malabsorption (HHS/HCC) Lymph edema Morbid obesity (CMS/HCC) Obstructive sleep apnea PMB (postmenopausal bleeding) Polycystic ovarian syndrome Psoriasis SOB (shortness of breath) on exertion Thyroglossal duct cyst Type 2 diabetes mellitus without complication (HCC) Urinary tract infection Uterine cancer (HCC) Vitamin D deficiency 05/10/2017 Zinc deficiency 06/21/2018 [2] apixaban, 5 mg, Oral, BID atorvastatin, 40 mg, Oral, Daily brimonidine, 1 drop, Both Eyes, BID chlorhexidine, , Topical, BID cholecalciferol, 50 mcg, Oral, Daily citalopram, 20 mg, Oral, Daily insulin glargine, 16 Units, SubCUTAneous, Nightly insulin lispro, 0-12 Units, SubCUTAneous, TID WC And insulin lispro, 0-12 Units, SubCUTAneous, Nightly Insulin Lispro, 4 Units, SubCUTAneous, TID WC levothyroxine, 175 mcg, Oral, qAM AC losartan, 50 mg, Oral, Daily metoprolol tartrate, 25 mg, Oral, BID miconazole, , Topical, BID sodium chloride 0.9%, 10 mL, IntraVENous, 2 times per day stomahesive in petrolatum, , Topical, BID therapeutic multivitamin-minerals, 1 tablet, Oral, Daily timolol, 1 drop, Both Eyes, BID [3] PRN medications: acetaminophen OR acetaminophen, chlorhexidine, dextrose, dextrose, glucagon (rDNA), glucose, loperamide, metoprolol, miconazole, naloxone, oxyCODONE OR oxyCODONE, polyethylene glycol (PEG) 3350, prochlorperazine OR prochlorperazine OR prochlorperazine, sodium chloride, sodium chloride 0.9%, stomahesive in petrolatum [4] Images from the original note were not included. PHYSICAL THERAPY [facility] Treatment Note Name/MRN: Dameon Potter ([id number]) Date of : 1955 Age: 70 y.o. Room/Bed: N4-458/N4-458 A Discharge Recommendation: Half-Way Facility Prior Level of Function Prior Level of ADL Function: Required Assist Prior Level of Mobility: Independent; Device: Front wheeled walker Prior Level of Transfers: Independent Assessment No progress made towards goals. Difficult bed mobility this session secondary to sacral wound pain. Unable to fully scoot to edge of bed enough to attempt transfer due to pain with scooting. Sat with legs dangling off edge of bed for sitting balance work to prepare for standing balance necessary for higher level weightbearing activities. Though we did not achieve a successful transfer this session, patient verbalizes having been to and from the recliner today and that the nurse had to hold her like a baby to get her back in bed. Recommend care home facility upon discharge. Subjective Patient in bed and agreeable to therapy. Pain: Pain in sacrum with movement Medical Precautions: No active isolations Proper PPE donned/doffed in accordance with facility standards. Fall Risk: Mcleod Fall Risk Score: 50 (Low Risk) Mcleod Fall Risk Score: 50 (High Risk) Precautions/Restrictions: Fall Precautions Overall Cognitive Status: WNL Overall Orientation Status: Oriented x4 Family/Caregiver Present: none Objective Bed Mobility Supine to sit: Mod Assist Sit to supine: Mod Assist Rolling to right: Mod Assist Scooting: Max Assist HOB Elevated Use of bed rail(s) Balance During Session: Posture: fair Sitting - Static: SBA Sitting - Dynamic: Contact Guard Plan Continue acute PT per plan of care. Safety/Education Safety Safety Devices in place: call light within reach, left in bed, patient at risk for falls, and no alarms engaged upon entry Restraints: No Education Education Given To: patient Education Provided: Discharge Recommendations Education Method: Verbal Outcome Measures AM-PAC AM-PAC Inpatient Mobility Raw Score (No Stairs) : 10 JH-HLM JH-HLM Scale: Sat at edge of bed Goals Patient Stated Goal: to get better overall and go to a facility to get stronger Encounter Problems Encounter Problems (Active) Mobility Patient will ambulate 75 feet with modified independence and least restrictive device in order to improve safety and independence with mobility. (Not Addressed) Start: 05/14/25 Expected End: 05/29/25 Transfers Patient will perform bed mobility with independence in order to improve independence and prepare for out of bed mobility. (Progressing) Start: 05/14/25 Expected End: 05/29/25 Patient will complete functional transfer with least restrictive device with modified independence in order to prepare for ambulation. (Not Addressed) Start: 05/14/25 Expected End: 05/29/25 Therapy Time Individual Co-treatment Time In 1437 Time Out 1454 Minutes 17 Timed Code Treatment Minutes: 17 Minutes (FA) Sharon Sifuentes PTA Cosigned by Lizette Pineda PT at 05/17/2025 4:31 PM EDT Images from the original note were not included. OCCUPATIONAL THERAPY [facility] Treatment Note Name/MRN: Dameon Potter ([id number]) Date of : 1955 Age: 70 y.o. Room/Bed: N4-458/N4-458 A Discharge Recommendation: Half-Way Facility Prior Level of Function Prior Level of ADL Function: Required Assist Prior Level of Mobility: Independent; Device: Front wheeled walker Prior Level of Transfers: Independent Assessment Pt currently needs assist for bed mobility, ADL. Suggest SNF level therapies to promote highest level of function. Subjective Pt in bed, agrees to OT. Pain: Pt denies any current pain. Medical Precautions: No active isolations Proper PPE donned/doffed in accordance with facility standards. Fall Risk: Mcleod Fall Risk Score: 50 (Low Risk) Mcleod Fall Risk Score: 50 (High Risk) Precautions/Restrictions: Fall Precautions Family/Caregiver Present: none Objective ADLs LE Dressing: Max Assist, don socks while seated EOB Grooming: Supervision, seated EOB Bed Mobility Supine to sit: Mod Assist Sit to supine: Mod Assist Scooting: Max Assist, x2 Person Assist, scoot to HOB in supine Transfers/Mobility Sitting balance: initially min assist due to bed surface, progresses to supv after brief period. Exercise Comment: Encouraged BLE exer as precursor to ADL, mobility, transfers, Pt provides return demo. BUE ROM, 2 set x 5 reps x 4 exer. Suggest completion of same 2-3x/day. Pt appears with good understanding of all. Plan Continue acute OT per plan of care. Safety/Education Safety Safety Devices in place: call light within reach, left in bed, and no alarms engaged upon entry Restraints: No Education Exer, balance Will need ongoing education. AM-PAC AM-PAC Inpatient Daily Activity Raw Score: 17 ADL Inpatient CMS G-Code Modifier: CK Goals Patient Stated Goal: get stronger Encounter Problems Encounter Problems (Active) Balance Patient will maintain static standing balance for 3 minutes with supervision in order to demonstrate decreased risk of falling. (Not Addressed) Start: 05/15/25 Expected End: 06/12/25 Dressings Lower Extremities Patient will dress lower body with supervision (Progressing) Start: 05/15/25 Expected End: 06/12/25 Toileting Patient will complete toileting tasks at bedside commode with supervision. (Not Addressed) Start: 05/15/25 Expected End: 06/12/25 Transfers Patient will perform bed mobility with supervision in order to improve independence and prepare for out of bed mobility. (Progressing) Start: 05/15/25 Expected End: 06/12/25 Therapy Time Individual Co-treatment Time In 0751 Time Out 0802 Minutes 11 Timed Code Treatment Minutes: (Funct--1) CORRIE Soto Cosigned by Laura Taylor OT at 05/17/2025 10:49 AM EDT Hospitalist Progress Note 05/17/2025 Subjective: Admit Date: 05/11/2025 PCP: Christy Rizzo MD Room#: N4-458/N4-458 A BRIEF HOSPITAL COURSE: 70-yo F, PMHx for stage II grade 1 endometrial cancer who was treated with robotic hysterectomy, lymph node sampling and adjunctive radiotherapy, more recently she was found to have some lung nodules. Her other medical history includes atrial fibrillation with RVR, difficult to control diabetes (she admits that she does not take her Lantus as prescribed as she feels that it is too much normally), moderate aortic stenosis, hypertension, dyslipidemia, hypothyroidism, chronic lymphedema, she also has a tendency for malabsorption due to history of gastric bypass RADHA, GERD, asthma, diastolic heart failure, who presented to the hospital on 05/11/2025 due to multiple falls and inability to care for herself/bathe/perform ADLs. She has been trying to have her friends help her with her wounds but has been becoming more difficult. She endorses intermittent stool incontinence at night (2-3 episodes) as well as increased urinary frequency. In the emergency department, patient's blood pressure was elevated and she was tachycardic. Venous blood gas showed pH of 7.46, CO2 of 31, HCO3 of 22. BMP showed low sodium 135, hypokalemia 3.4, CO2 of 18, anion gap of 14, creatinine of 1.16, glucose of 399, magnesium 1.4, albumin 2.2 and a bilirubin of 1.3. Lactic acid was elevated at 3.1. CBC showed a leukocytosis 16.9 with left shift. Beta hydroxybutyrate was elevated at 9.6. UA showed 500 leukocyte esterase, greater than 100 WBC, many bacteria. Blood Cxs prelim results with no growth, final results pending.Urine negative Interval History: 05/16 ON: No acute events This AM: Patient sitting up in her room chair in no obvious distress having breakfast, denies any CP,SOB or Dizziness. -Still has Cardiac Murmur s/p Rh Fever: Cardiology consulted 05/17 ON: No acute overnight events This AM: Patient laying in bed in no obvious distress, no CP, SOB, or Dizziness. -Cardiology recommendations appreciated: cont metoprolol and Eliquis, will get serial ECHO as an OP for further recommendations. -Awaiting placement Case and plan discussed with patient and bedside nurse. All questions answered. Adult diet Regular; 4 carb choices (60 gm/meal) 24HR INTAKE/OUTPUT: Intake/Output Summary (Last 24 hours) at 05/17/2025 0602 Last data filed at 05/17/2025 0300 Gross per 24 hour Intake -- Output 2658 ml Net -2658 ml Past Medical History: Medical History[1] LABS: CBC: Recent Labs 05/15/25 0515 05/16/25 0503 WBC 8.2 8.4 RBC 3.56* 3.59* HGB 10.6* 10.6* HCT 33.2* 33.5* MCV 93.3 93.3 RDW 13.1 13.2 PLT 323 305 BMP: Recent Labs 05/15/25 0515 05/16/25 0503 05/17/25 0348 NA 137 137 135* K 3.6 3.8 4.3 CL 111* 110* 109* CO2 22* 21* 20* BUN 19 17 21 CREATININE 0.66 0.70 0.64 GLUCOSE 74* 98 127* CALCIUM 8.3* 8.2* 7.9* ANIONGAP 4 6 6 LIVER PROFILE: No results for input(s): AST, ALT, BILITOT, ALKPHOS, PROT in the last 72 hours. No lab exists for component: LABALBU PT/INR: No results for input(s): PROTIME, INR in the last 72 hours. CARDIAC ENZYMES: No results for input(s): TROPONINI in the last 72 hours. Procalcitonin: No results found for: PROCAL COVID-19 PCR: No results for input(s): COVID19 in the last 72 hours. Objective: Vitals: BP 139/68 (BP Location: Right arm, Patient Position: Sitting) Pulse 58 Temp 36.8 C (98.3 F) (Temporal) Resp 16 Ht 5' 6 (1.676 m) Wt 206 lb 2.1 oz (93.5 kg) SpO2 98% BMI 33.27 kg/m Pulse Ox: SpO2 Av % Min: 98 % Max: 98 % Supplemental O2: Physical Exam Vitals and nursing note reviewed. Constitutional: Appearance: Normal appearance. HENT: Head: Normocephalic and atraumatic. Right Ear: External ear normal. Left Ear: External ear normal. Mouth/Throat: Mouth: Mucous membranes are moist. Eyes: Conjunctiva/sclera: Conjunctivae normal. Cardiovascular: Rate and Rhythm: Normal rate. Pulmonary: Effort: Pulmonary effort is normal. No respiratory distress. Abdominal: Tenderness: There is no abdominal tenderness. Musculoskeletal: Cervical back: Neck supple. Comments: See media for wound pictures Neurological: Mental Status: She is alert and oriented to person, place, and time. Psychiatric: Behavior: Behavior normal. Medications: Scheduled PRN Scheduled Meds[2] PRN Meds[3] Continuous Continuous Meds[4] Assessment Acute, acute on chronic, unstable/uncontrolled chronic problems/diagnoses: Sepsis secondary to urinary tract infection/cellulitis: Cx still with no growth; will deescalate Abx as appropriate -d'art Vancomycin 05/12 and Cefepime 05/13 Gluteal and Groin wounds -cont Cefepime -goel drinage to avoid wound contamination. Hypokalemia: Resolved Mild DKA: Resolving, LA normal at 1.1 SAÚL: Resolved Hypomagnesemia: Resolved Hypoalbuminemia Stable chronic problems affecting care, new non-acute diagnoses: stage II grade 1 endometrial cancer Monitor for recurrence atrial fibrillation with RVR Metoprolol/Eliquis for rate control and anticoagulation moderate aortic stenosis Recommend outpatient echocardiogram Hypertension Cont Losartan 50 mg daily, started 05/14 Dyslipidemia Cont statin Hypothyroidism Levothyroxine ordered chronic lymphedema Wound care following, apprec recs elevate legs Plan As a result of the above findings & factors, the following mgmt was pursued: - Restart Home meds as appropriate - am labs, replace lytes prn - PT/OT/CM/SW - delirium precautions: increase activity and limit nighttime disturbances - DVT prophylaxis: encourage ambulation and already anticoagulated Advance Directive: DNR-CCA Anticipated Discharge - Date - TBD - Location - Home - Pending the following - Clinical improvement Total time spent (which include face to face and non face to face encounters) : 45 minutes Toxic drug monitoring/narrow therapeutic index drug monitoring : # Drug name : none # Route administered :na # Method of monitoring : na Extended Emergency Contact Information Primary Emergency Contact: Roe Melendrez Mobile Relation: Niece Secondary Emergency Contact: Jose Potter Mobile Relation: Huma Campo DO [place] Division of Hospitalist Medicine [facility] [1] Past Medical History: Diagnosis Date Anxiety Asthma (HHS/HCC) Atrial fibrillation (HCC) Deficiency of nutrient elements Depression Dry eye Endometrial cancer (HCC) 09/30/2020 Fatigue Gastritis GERD (gastroesophageal reflux disease) Glaucoma Hyperlipidemia Hypertension Hypothyroidism Incontinence Intestinal malabsorption (HHS/HCC) Lymph edema Morbid obesity (CMS/HCC) Obstructive sleep apnea PMB (postmenopausal bleeding) Polycystic ovarian syndrome Psoriasis SOB (shortness of breath) on exertion Thyroglossal duct cyst Type 2 diabetes mellitus without complication (HCC) Urinary tract infection Uterine cancer (HCC) Vitamin D deficiency 05/10/2017 Zinc deficiency 06/21/2018 [2] apixaban, 5 mg, Oral, BID atorvastatin, 40 mg, Oral, Daily brimonidine, 1 drop, Both Eyes, BID chlorhexidine, , Topical, BID cholecalciferol, 50 mcg, Oral, Daily citalopram, 20 mg, Oral, Daily insulin glargine, 16 Units, SubCUTAneous, Nightly insulin lispro, 0-12 Units, SubCUTAneous, TID WC And insulin lispro, 0-12 Units, SubCUTAneous, Nightly Insulin Lispro, 4 Units, SubCUTAneous, TID WC levothyroxine, 175 mcg, Oral, qAM AC losartan, 50 mg, Oral, Daily metoprolol tartrate, 25 mg, Oral, BID miconazole, , Topical, BID sodium chloride 0.9%, 10 mL, IntraVENous, 2 times per day stomahesive in petrolatum, , Topical, BID therapeutic multivitamin-minerals, 1 tablet, Oral, Daily timolol, 1 drop, Both Eyes, BID [3] PRN medications: acetaminophen OR acetaminophen, chlorhexidine, dextrose, dextrose, glucagon (rDNA), glucose, loperamide, metoprolol, miconazole, naloxone, oxyCODONE OR oxyCODONE, polyethylene glycol (PEG) 3350, prochlorperazine OR prochlorperazine OR prochlorperazine, sodium chloride, sodium chloride 0.9%, stomahesive in petrolatum [4] Hospitalist Progress Note 05/16/2025 Subjective: Admit Date: 05/11/2025 PCP: Christy Rizzo MD Room#: N4-458/N4-458 A BRIEF HOSPITAL COURSE: 70-yo F, PMHx for stage II grade 1 endometrial cancer who was treated with robotic hysterectomy, lymph node sampling and adjunctive radiotherapy, more recently she was found to have some lung nodules. Her other medical history includes atrial fibrillation with RVR, difficult to control diabetes (she admits that she does not take her Lantus as prescribed as she feels that it is too much normally), moderate aortic stenosis, hypertension, dyslipidemia, hypothyroidism, chronic lymphedema, she also has a tendency for malabsorption due to history of gastric bypass RADHA, GERD, asthma, diastolic heart failure, who presented to the hospital on 05/11/2025 due to multiple falls and inability to care for herself/bathe/perform ADLs. She has been trying to have her friends help her with her wounds but has been becoming more difficult. She endorses intermittent stool incontinence at night (2-3 episodes) as well as increased urinary frequency. In the emergency department, patient's blood pressure was elevated and she was tachycardic. Venous blood gas showed pH of 7.46, CO2 of 31, HCO3 of 22. BMP showed low sodium 135, hypokalemia 3.4, CO2 of 18, anion gap of 14, creatinine of 1.16, glucose of 399, magnesium 1.4, albumin 2.2 and a bilirubin of 1.3. Lactic acid was elevated at 3.1. CBC showed a leukocytosis 16.9 with left shift. Beta hydroxybutyrate was elevated at 9.6. UA showed 500 leukocyte esterase, greater than 100 WBC, many bacteria. Blood Cxs prelim results with no growth, final results pending.Urine negative Interval History: 05/15 ON: No acute overnight events This AM: Met patient sitting in her room chair endorsing feeling much better from her generalized fatigue and weakness standpoint, diarrhea is reducing and she is feels less pain from her buttocks and perineal wound. Called and updated family(Tariq Snow,Nieves-Jennifer) on 05/14 including discussion of imaging findings/PET scan of 01/14 that showed no evidence of hypermetabolic nodes or masses suggestive of malignancy. -K: Normalized at 3.6 05/16 ON: No acute events This AM: Patient sitting up in her room chair in no obvious distress having breakfast, denies any CP,SOB or Dizziness. -Still has Cardiac Murmur s/p Rh Fever: Cardiology consulted -Awaiting placement Case and plan discussed with patient and bedside nurse. All questions answered. Adult diet Regular; 4 carb choices (60 gm/meal) 24HR INTAKE/OUTPUT: Intake/Output Summary (Last 24 hours) at 05/16/2025 0701 Last data filed at 05/15/2025 1110 Gross per 24 hour Intake -- Output 375 ml Net -375 ml Past Medical History: Medical History[1] LABS: CBC: Recent Labs 05/14/25 0108 05/15/25 0515 05/16/25 0503 WBC 8.7 8.2 8.4 RBC 3.21* 3.56* 3.59* HGB 9.6* 10.6* 10.6* HCT 30.0* 33.2* 33.5* MCV 93.5 93.3 93.3 RDW 13.2 13.1 13.2 PLT 264 323 305 BMP: Recent Labs 05/14/25 0108 05/15/25 0515 05/16/25 0503 NA 140 137 137 K 3.4* 3.6 3.8 CL 113* 111* 110* CO2 20* 22* 21* BUN 16 19 17 CREATININE 0.70 0.66 0.70 GLUCOSE 115 74* 98 CALCIUM 8.0* 8.3* 8.2* ANIONGAP 7 4 6 LIVER PROFILE: No results for input(s): AST, ALT, BILITOT, ALKPHOS, PROT in the last 72 hours. No lab exists for component: LABALBU PT/INR: No results for input(s): PROTIME, INR in the last 72 hours. CARDIAC ENZYMES: No results for input(s): TROPONINI in the last 72 hours. Procalcitonin: Lab Results Component Value Date PROCAL 0.25 (H) 05/14/2025 COVID-19 PCR: No results for input(s): COVID19 in the last 72 hours. Objective: Vitals: BP 150/77 Pulse 60 Temp 36.9 C (98.5 F) (Temporal) Resp 16 Ht 5' 6 (1.676 m) Wt 206 lb 2.1 oz (93.5 kg) SpO2 99% BMI 33.27 kg/m Pulse Ox: SpO2 Av.5 % Min: 98 % Max: 99 % Supplemental O2: Physical Exam Vitals and nursing note reviewed. Constitutional: Appearance: Normal appearance. HENT: Head: Normocephalic and atraumatic. Right Ear: External ear normal. Left Ear: External ear normal. Mouth/Throat: Mouth: Mucous membranes are moist. Eyes: Conjunctiva/sclera: Conjunctivae normal. Cardiovascular: Rate and Rhythm: Normal rate. Pulmonary: Effort: Pulmonary effort is normal. No respiratory distress. Musculoskeletal: Cervical back: Neck supple. Comments: See media for wound pictures Neurological: Mental Status: She is alert and oriented to person, place, and time. Psychiatric: Behavior: Behavior normal. Medications: Scheduled PRN Scheduled Meds[2] PRN Meds[3] Continuous Continuous Meds[4] Assessment Acute, acute on chronic, unstable/uncontrolled chronic problems/diagnoses: Sepsis secondary to urinary tract infection/cellulitis: Cx still with no growth; will deescalate Abx as appropriate -d'art Vancomycin 05/12 and Cefepime 05/13 Gluteal and Groin wounds -cont Cefepime -goel drinage to avoid wound contamination. Hypokalemia: Resolved Mild DKA: Resolving, LA normal at 1.1 SAÚL: Resolved Hypomagnesemia: Resolved Hypoalbuminemia Stable chronic problems affecting care, new non-acute diagnoses: stage II grade 1 endometrial cancer Monitor for recurrence atrial fibrillation with RVR Metoprolol/Eliquis for rate control and anticoagulation moderate aortic stenosis Recommend outpatient echocardiogram Hypertension Cont Losartan 50 mg daily, started 05/14 Dyslipidemia Cont statin Hypothyroidism Levothyroxine ordered chronic lymphedema Wound care following, apprec recs elevate legs Plan As a result of the above findings & factors, the following mgmt was pursued: - Restart Home meds as appropriate - am labs, replace lytes prn - PT/OT/CM/SW - delirium precautions: increase activity and limit nighttime disturbances - DVT prophylaxis: encourage ambulation and already anticoagulated Advance Directive: DNR-CCA Anticipated Discharge - Date - TBD - Location - Home - Pending the following - Clinical improvement Total time spent (which include face to face and non face to face encounters) : 45 minutes Toxic drug monitoring/narrow therapeutic index drug monitoring : # Drug name : none # Route administered :na # Method of monitoring : na Extended Emergency Contact Information Primary Emergency Contact: Rossbi KamaramanRoe Mobile Relation: Niece Secondary Emergency Contact: Jose Potter Mobile Relation: Sibling Alber Gil DO Division of Hospitalist Medicine [facility] [1] Past Medical History: Diagnosis Date Anxiety Asthma (HHS/HCC) Atrial fibrillation (HCC) Deficiency of nutrient elements Depression Dry eye Endometrial cancer (HCC) 09/30/2020 Fatigue Gastritis GERD (gastroesophageal reflux disease) Glaucoma Hyperlipidemia Hypertension Hypothyroidism Incontinence Intestinal malabsorption (HHS/HCC) Lymph edema Morbid obesity (CMS/HCC) Obstructive sleep apnea PMB (postmenopausal bleeding) Polycystic ovarian syndrome Psoriasis SOB (shortness of breath) on exertion Thyroglossal duct cyst Type 2 diabetes mellitus without complication (HCC) Urinary tract infection Uterine cancer (HCC) Vitamin D deficiency 05/10/2017 Zinc deficiency 06/21/2018 [2] apixaban, 5 mg, Oral, BID atorvastatin, 40 mg, Oral, Daily brimonidine, 1 drop, Both Eyes, BID chlorhexidine, , Topical, BID cholecalciferol, 50 mcg, Oral, Daily citalopram, 20 mg, Oral, Daily insulin glargine, 16 Units, SubCUTAneous, Nightly insulin lispro, 0-12 Units, SubCUTAneous, TID WC And insulin lispro, 0-12 Units, SubCUTAneous, Nightly Insulin Lispro, 4 Units, SubCUTAneous, TID WC levothyroxine, 175 mcg, Oral, qAM AC losartan, 50 mg, Oral, Daily metoprolol tartrate, 25 mg, Oral, BID miconazole, , Topical, BID sodium chloride 0.9%, 10 mL, IntraVENous, 2 times per day stomahesive in petrolatum, , Topical, BID therapeutic multivitamin-minerals, 1 tablet, Oral, Daily timolol, 1 drop, Both Eyes, BID [3] PRN medications: acetaminophen OR acetaminophen, chlorhexidine, dextrose, dextrose, glucagon (rDNA), glucose, loperamide, metoprolol, miconazole, naloxone, oxyCODONE OR oxyCODONE, polyethylene glycol (PEG) 3350, prochlorperazine OR prochlorperazine OR prochlorperazine, sodium chloride, sodium chloride 0.9%, stomahesive in petrolatum [4] Images from the original note were not included. OCCUPATIONAL THERAPY [facility] Initial Evaluation Name/MRN: Dameon Potter ([id number]) Evaluation Date: 05/15/2025 Date of : 1955 Admission Date: 05/11/2025 5:34 PM Age: 70 y.o. Room/Bed: N4458/N4458 A Discharge Recommendation: Half-Way Facility Assessment IMPRESSION: Pt presented with sacral wound and FTT. Pt reports she was struggling to mobilize and complete ADLs. Pt currently requires mod assist for ADLs and mod assist for transfers. OT recommending SNF. Admitting Diagnosis: see above Performance Deficits /Impairments: Increased Pain, Decreased Functional Mobility, Decreased ADL status, Decreased Strength, Decreased Safety Awareness, Decreased Endurance, Decreased Balance, Decreased ROM, and Decreased High Level IADLs Prognosis: Fair Decision Making: Low Complexity Subjective Pt seated in recliner, agreeable to OT eval. Pain: [place] Pain Ratin = Hurts even more Pain Location: bottom Past Medical History: Medical History[1] Past Surgical History: Surgical History[2] Admission Diagnosis: Patient Active Problem List Diagnosis Date Noted Pressure injury of right buttock, stage 2 (CMS/HCC) 05/11/2025 Cellulitis of lower extremity 11/21/2024 Weight gain 11/21/2024 Poor sleep hygiene 11/10/2024 Cognitive decline 11/06/2024 Atrial fibrillation (HCC) 11/06/2024 Moderate aortic stenosis 11/06/2024 Severe malnutrition (CMS/HCC) (HCC) 11/03/2024 Lymphedema of both lower extremities 11/01/2023 MDD (major depressive disorder) 11/01/2023 Urinary incontinence 11/01/2023 Asthma (HHS/HCC) 11/01/2023 Chronic rhinitis 11/01/2023 RADHA (obstructive sleep apnea) 11/01/2023 Polycystic ovarian syndrome 11/01/2023 Corneal epithelial basement membrane dystrophy 10/03/2022 Diabetic retinopathy associated with type 2 diabetes mellitus (HCC) 07/05/2022 Malignant neoplasm of uterus (HCC) 07/05/2022 Malnutrition of mild degree (Bianchi: 75% to less than 90% of standard weight) (HCC) 07/05/2022 Moderate recurrent major depression (CMS/HCC) 07/05/2022 Thyroglossal duct cyst 07/05/2022 Type 2 diabetes mellitus with hyperglycemia ([facility]) 07/05/2022 Postmenopausal bleeding 09/03/2020 Dry eye syndrome of bilateral lacrimal glands 11/04/2018 Nuclear sclerotic cataract, bilateral 05/24/2017 Posterior subcapsular age-related cataract of left eye 05/22/2017 Primary open angle glaucoma of both eyes, mild stage 11/13/2016 Cortical cataract of both eyes 05/05/2015 Chronic sinusitis 03/12/2013 Endometrial cancer ([facility]) 09/30/2020 Debility 06/20/2018 Morbid obesity ([facility]) 01/31/2018 Hepatic steatosis 01/29/2018 Calculus of gallbladder with chronic cholecystitis without obstruction 01/29/2018 Essential hypertension, benign 01/29/2018 Mixed hyperlipidemia 01/29/2018 Vitamin D deficiency 12/27/2017 Gastroesophageal reflux disease without esophagitis 03/20/2017 Hypothyroidism 04/22/2015 OAB (overactive bladder) 03/24/2015 Medical Precautions: No active isolations Proper PPE donned/doffed in accordance with facility standards. Fall Risk: Mcleod Fall Risk Score: 85 (Low Risk) Mcleod Fall Risk Score: 85 (High Risk) Precautions/Restrictions: Fall Precautions Family/Caregiver Present: none Overall Cognitive Status: WFL Overall Orientation Status: Oriented x4 Social/Functional History Patient admitted from home. Lives With: Alone Type of Home: single family home Home Layout: Split Level Home Home Access: Bathroom Shower/Tub: Washes at sink/bed Toilet: Standard Home Equipment: front wheeled walker Homemaking Responsibilities: Needs Assist Receives Help From: Friend(s) Active Degreasing Solution Reclaimer: Prior Level of Function Prior Level of ADL Function: Required Assist Prior Level of Mobility: Independent; Device: Front wheeled walker Prior Level of Transfers: Independent Objective ADLs LE Dressing: able to reach B socks but required assist to actually adjust B socks Upper Extremity Assessment AROM: WFL PROM: Not assessed this session Strength: Exceptions: generalized weakness Transfers/Mobility Sit to stand: Mod Assist Stand to sit: Mod Assist Mod assist to elevate, stood for ~ 30 seconds then returned to sitting. Device(s) used: held onto therapist AM-PAC AM-PAC Inpatient Daily Activity Raw Score: 17 ADL Inpatient CMS G-Code Modifier: CK Plan Pt would benefit from skilled acute OT services to address Strengthening, ROM, Gait Training, Balance Training, Self-Care/ADL Training, Functional Mobility Training, Endurance Training, Safety Education and Training, Pain Management, Home Management Training, and Patient/Caregiver Training. Frequency: 3x/weekfor 4 weeks Barriers: Pain, Impaired balance, Lower extremity weakness, Limited safety awareness, Decreased endurance, Upper extremity weakness, and Limited family support Safety/Education Safety Safety Devices in place: All fall risk precautions in place, call light within reach, left in chair, and no alarms engaged upon entry Restraints: No Education Education Given To: patient Education Provided: OT Role, Plan of Care, and Discharge Recommendations Education Method: Verbal Barriers to Learning: Education Outcome: Goals Patient Stated Goal: rehab Encounter Problems Encounter Problems (Active) Balance Patient will maintain static standing balance for 3 minutes with supervision in order to demonstrate decreased risk of falling. Start: 05/15/25 Expected End: 06/12/25 Dressings Lower Extremities Patient will dress lower body with supervision Start: 05/15/25 Expected End: 06/12/25 Toileting Patient will complete toileting tasks at bedside commode with supervision. Start: 05/15/25 Expected End: 06/12/25 Transfers Patient will perform bed mobility with supervision in order to improve independence and prepare for out of bed mobility. Start: 05/15/25 Expected End: 06/12/25 Therapy Time Individual Co-Treatment Co-Evaluation Time In 1338 Time Out 1348 Minutes 10 Maritza Hebert OT Patient's Occupational Therapy Plan of Care supervision is transferred to a [facility] Therapy Services Occupational Therapist. Goals and/or treatment plan was established in collaboration with patient/family/other representatives. [1] Past Medical History: Diagnosis Date Anxiety Asthma (HHS/HCC) Atrial fibrillation (HCC) Deficiency of nutrient elements Depression Dry eye Endometrial cancer (HCC) 09/30/2020 Fatigue Gastritis GERD (gastroesophageal reflux disease) Glaucoma Hyperlipidemia Hypertension Hypothyroidism Incontinence Intestinal malabsorption (HHS/HCC) Lymph edema Morbid obesity (CMS/HCC) Obstructive sleep apnea PMB (postmenopausal bleeding) Polycystic ovarian syndrome Psoriasis SOB (shortness of breath) on exertion Thyroglossal duct cyst Type 2 diabetes mellitus without complication (HCC) Urinary tract infection Uterine cancer (HCC) Vitamin D deficiency 05/10/2017 Zinc deficiency 06/21/2018 [2] Past Surgical History: Procedure Laterality Date CATARACT EXTRACTION Bilateral CHOLECYSTECTOMY 01/29/2018 w/ LRYGB and Umbilical Hernia repair - [facility] DILATION AND CURETTAGE OF UTERUS 09/03/2020 with hysteroscopy GASTRIC BYPASS 01/29/2018 LRYGB w/ Lap Aggie and Umbilical Hernia repair, [facility] GASTRIC BYPASS HYSTERECTOMY 09/30/2020 [facility]/BSO; Dr. Cuauhtemoc Stubbs MOUTH SURGERY 1979' gum removal to expose wisdom teeth THYROGLOSSAL DUCT EXCISION 2000 [facility]- Dr. Vin Keating THYROIDECTOMY thyroid cyst UMBILICAL HERNIA REPAIR 01/29/2018 w/ LRYGB and Lap Aggie - [facility] UPPER GASTROINTESTINAL ENDOSCOPY 03/20/2017 pre op, [facility] WISDOM TOOTH EXTRACTION 2013 [facility] Images from the original note were not included. PHYSICAL THERAPY [facility] Treatment Note Name/MRN: Dameon Potter ([id number]) Date of : 1955 Age: 70 y.o. Room/Bed: N4-458/N4-458 A Discharge Recommendation: Half-Way Facility Prior Level of Function Prior Level of ADL Function: Required Assist Prior Level of Mobility: Independent; Device: Front wheeled walker Prior Level of Transfers: Independent Assessment Pt is making progress on bed mobility goal and ambulation goal. Pt still requires mod assist x1 for transfers. Pt shown HEP to improve strength. Pt is not safe to go home. Recommend SNF. Subjective Pt agreeable for therapy. Pt reports no pain today. Pt in good spirits and happy to see therapist Medical Precautions: No active isolations Proper PPE donned/doffed in accordance with facility standards. Fall Risk: Mcleod Fall Risk Score: 85 (Low Risk) Mcleod Fall Risk Score: 85 (High Risk) Precautions/Restrictions: N/A Overall Cognitive Status: WFL Overall Orientation Status: Oriented x4 Family/Caregiver Present: none Objective Bed Mobility Supine to sit: Mod Assist Pt cued on scooting forward. Encouraged push off with BUE to help alleviate pressure from gluteal region. Transfers/Mobility Sit to stand: Mod Assist Stand to sit: Mod Assist Performed 3 sit to stand and stand to sit transfers 1x with stand from envella bed. Pt required BUE support. 2x from bedside chair. Cued on pushing up with BUE. Excessive forward lean to achieve push off Device(s) used: Front wheeled walker Ambulation Ambulation 1 Assistive device(s) used: Front wheeled walker Assist level: Min Assist Distance (ft): 6 feet x1 Quality of gait: uneven step length, wide ASHLEY Ambulation 2 Assistive device(s) used: Front wheeled walker Assist level: Min Assist Distance (ft): 18 feet x1 Quality of gait: uneven step length, wide ASHLEY, Cued on steering FWW Exercises 2 sets of 10 reps of gluteal set, LAQ, ankle pumps 1 set of 10 reps of heel slides, SLR, SAQ, hip flexion seated Plan Continue acute PT per plan of care. Safety/Education Safety Safety Devices in place: All fall risk precautions in place, call light within reach, left in chair, gait belt, patient at risk for falls, no alarms engaged upon entry, and pt instructed on asking for help to get up. Restraints: N/A Education Educated on gait training, transfer training, reducing pressure sores on BLE. Outcome Measures AM-PAC AM-PAC Inpatient Mobility Raw Score (No Stairs) : 12 JH-HLM JH-HLM Scale: Walked 10 steps or more (i.e. walked to restroom) Goals Patient Stated Goal: to get better overall Encounter Problems Encounter Problems (Active) Mobility Patient will ambulate 75 feet with modified independence and least restrictive device in order to improve safety and independence with mobility. (Progressing) Start: 05/14/25 Expected End: 05/29/25 Transfers Patient will perform bed mobility with independence in order to improve independence and prepare for out of bed mobility. (Progressing) Start: 05/14/25 Expected End: 05/29/25 Patient will complete functional transfer with least restrictive device with modified independence in order to prepare for ambulation. (Not Progressing) Start: 05/14/25 Expected End: 05/29/25 Therapy Time Individual Co-treatment Time In 1002 Time Out 1041 Minutes 39 Timed Code Treatment Minutes: 39 Minutes (1 unit of GT, 1 unit of TP, 1 unit of FA) Williams Savage PT Images from the original note were not included. [facility] Wound Care Progress Note Dameon Potter AGE: 70 y.o. GENDER: female : 1955 Subjective: HISTORY of PRESENT ILLNESS HPI Dameon Potter is a 70 y.o. female who presents for a wound care follow up. HPI: Per chart review, 70-year-old female with past medical history of stage II grade 1 endometrial cancer who was treated with robotic hysterectomy, lymph node sampling and adjunctive radiotherapy, more recently she was found to have some lung nodules. Her other medical history includes atrial fibrillation with RVR, difficult to control diabetes (she admits that she does not take her Lantus as prescribed as she feels that it is too much normally), moderate aortic stenosis, hypertension, dyslipidemia, hypothyroidism, chronic lymphedema, she also has a tendency for malabsorption due to history of gastric bypass RADHA, GERD, asthma, diastolic heart failure, who presented to the hospital on 05/11/2025 due to multiple falls and inability to care for herself/bathe/perform ADLs. She has been trying to have her friends help her with her wounds but has been becoming more difficult. She endorses intermittent stool incontinence at night (2-3 episodes) as well as increased urinary frequency. Wound Care consulted for Pressure Injury; Sacrum. Patient resting in envella bed. Treatment noted at bedside. PAST MEDICAL HISTORY Medical History[1] PAST SURGICAL HISTORY Surgical History[2] FAMILY HISTORY Family History[3] SOCIAL HISTORY Social History[4] ALLERGIES Allergies[5] MEDICATIONS Medications Ordered Prior to Encounter[6] REVIEW OF SYSTEMS Pertinent items are noted in HPI. Objective: BP 149/68 (BP Location: Right arm, Patient Position: Lying) Pulse 54 Temp 36.6 C (97.8 F) (Temporal) Resp 18 Ht 1.676 m (5' 6) Wt 93.5 kg (206 lb 2.1 oz) SpO2 98% BMI 33.27 kg/m PHYSICAL EXAM General appearance: in no apparent distress, well developed and well nourished, non-toxic, in no respiratory distress and acyanotic, and alert Skin: warm and dry Pulmonary: Normal effort, no respiratory distress, no cyanosis Abdominal fold/Groin: Scattered superficial wounds noted. [place]/red tissue. Moisture/excoriation noted. Erythema present. 05/12/25 Bilateral medial thighs: Erythema present. Excoriation noted. Tenderness on palpation. Edema noted. 05/12/25 Sacrum extending to Bilateral Buttock: Full thickness wounds noted to be scattered with intact skin bridges. Purple non-blanchable tissue, slough, and pink tissue to wound bed. Areas of scabbing noted. Small amount of serosang drainage present. Susan-wound intact and fragile. Odor noted on exam. 05/12/25 LABS CBC: Lab Results Component Value Date WBC 8.2 05/15/2025 HGB 10.6 (L) 05/15/2025 HCT 33.2 (L) 05/15/2025 MCV 93.3 05/15/2025 PLT 323 05/15/2025 BMP: Lab Results Component Value Date NA 137 05/15/2025 K 3.6 05/15/2025 CL 111 (H) 05/15/2025 CO2 22 (L) 05/15/2025 BUN 19 05/15/2025 CREATININE 0.66 05/15/2025 PT/INR: No results found for: PROTIME, INR Prealbumin: No results found for: PREALBUMIN Albumin:No components found for: LABALBU Sed Rate:No results found for: SEDRATE Micro: No components found for: BC Assessment/Plan: Nursing staff to perform dressing change: Abdominal Fold/Groin: Fungal Dermatitis -Cleanse with Hibiclens soap and water. Apply miconazole powder. Leave JAVA DEVELOPMENT MANAGER. Apply BID and PRN Bilateral medial thighs: Fungal Dermatitis -Cleanse with Hibiclens soap and water. Apply miconazole powder. Leave JAVA DEVELOPMENT MANAGER. 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 Apply miconazole powder to wound bed, followed by ET mix. Leave GEREMIAS. Apply BID and PRN -waffle chair cushion -Q2hr/PRN turns -glide sheets for T&R -continence checks Q1-2 Hrs/PRN -Envella bed with pillow offloading - Currently resting on Nutritional support Wound Care to follow Recommend to follow up at [facility] Outpatient wound care center after hospital discharge. Any questions or concerns please secure chat [facility] wound/ostomy. Thank you for the consult! I personally obtained the barragan and critical portions of the history and physical exam. I reviewed the labs, imaging studies, and electronic medical record. I reviewed the chart documentation and discussed the patient with treatment team members. I have edited the note to reflect my clinical findings and my assessment and plan. Please note, the time of this note does not reflect the time I saw this patient today, but the time of this documentaton. Portions of this note including HPI, ROS, impression/plan, and examination may have been copied forward from admission to today as to provide important historical information essential in contributing to medical decision making. Documentation has been reviewed and edited as necessary to support clinical decision making for today's visit and to reflect my own independent evaluation of this patient. Decision making for today's visit and to reflect my own independent evaluation of this patient. [1] Past Medical History: Diagnosis Date Anxiety Asthma (HHS/HCC) Atrial fibrillation (HCC) Deficiency of nutrient elements Depression Dry eye Endometrial cancer (HCC) 09/30/2020 Fatigue Gastritis GERD (gastroesophageal reflux disease) Glaucoma Hyperlipidemia Hypertension Hypothyroidism Incontinence Intestinal malabsorption (HHS/HCC) Lymph edema Morbid obesity (CMS/HCC) Obstructive sleep apnea PMB (postmenopausal bleeding) Polycystic ovarian syndrome Psoriasis SOB (shortness of breath) on exertion Thyroglossal duct cyst Type 2 diabetes mellitus without complication (HCC) Urinary tract infection Uterine cancer (HCC) Vitamin D deficiency 05/10/2017 Zinc deficiency 06/21/2018 [2] Past Surgical History: Procedure Laterality Date CATARACT EXTRACTION Bilateral CHOLECYSTECTOMY 01/29/2018 w/ LRYGB and Umbilical Hernia repair - [facility] DILATION AND CURETTAGE OF UTERUS 09/03/2020 with hysteroscopy GASTRIC BYPASS 01/29/2018 LRYGB w/ Lap Aggie and Umbilical Hernia repair, [facility] GASTRIC BYPASS HYSTERECTOMY 09/30/2020 [facility]/BSO; Dr. Cuauhtemoc Stubbs MOUTH SURGERY gum removal to expose wisdom teeth THYROGLOSSAL DUCT EXCISION 2000 [facility]- Dr. Vni Keating THYROIDECTOMY thyroid cyst UMBILICAL HERNIA REPAIR 01/29/2018 w/ LRYGB and Lap Aggie - [facility] UPPER GASTROINTESTINAL ENDOSCOPY 03/20/2017 pre op, [facility] WISDOM TOOTH EXTRACTION 2012 [facility] [3] Family History Problem Relation Name Age of Onset Obesity Mother dementia Diabetes Mother dementia High Blood Pressure Mother dementia Heart disease Mother dementia Stroke Father High Blood Pressure Father Diabetes Father Bladder Cancer Father Obesity Father High Blood Pressure Brother Heart attack Paternal Grandmother Stroke Paternal Grandfather Diabetes Paternal Grandfather Colon cancer Neg Hx [4] Social History Tobacco Use Smoking status: Never Smokeless tobacco: Never Substance Use Topics Alcohol use: No Drug use: No [5] Allergies Allergen Reactions Bimatoprost Other Blurred vision Doxycycline Hives Erythromycin Hives Levaquin [Levofloxacin] Hives Macrobid [Nitrofurantoin] Hives Penicillins Hives Levofloxacin In D5w Swelling oral Macrolides And Ketolides Hives 1980 Molds & Smuts Itching Mold allergy Nitrofurantoin Monohyd Macro Itching Other Itching [6] No current facility-administered medications on file prior to encounter. Current Outpatient Medications on File Prior to Encounter Medication Sig Dispense Refill albuterol 108 (90 Base) MCG/ACT inhaler Inhale 2 puffs every 6 hours as needed. (Patient not taking: Reported on 12/22/2024) apixaban (Eliquis) 5 MG tablet Take 1 tablet (5 mg) by mouth 2 times daily. 60 tablet 0 atorvastatin (Lipitor) 40 MG tablet Take by mouth daily. BD Insulin Syringe U/F 30G X 1/2 0.5 ML misc 2 times daily with insulin 200 each 3 brimonidine (AlphaGAN P) 0.1 % ophthalmic solution Administer 1 drop into both eyes 3 times a day. cholecalciferol (Vitamin D-3) 25 MCG (1000 UT) capsule Take 50 mcg by mouth daily. citalopram (CeleXA) 20 MG tablet Take 20 mg by mouth daily. Continuous Glucose Sensor (FreeStyle Satya 3 Sensor) misc 1 Device every 14 (fourteen) days. 7 each 3 EPINEPHRINE HCL, ANAPHYLAXIS, IM Inject into the shoulder, thigh, or buttocks. (Patient not taking: Reported on 12/22/2024) FREESTYLE LITE test strip 1 each by Other route 4 times daily. As directed (Patient not taking: Reported on 12/22/2024) 400 each 3 glucose 4 g chewable tablet Chew 16 g if needed for low blood sugar. (Patient not taking: Reported on 12/22/2024) insulin glargine (Lantus) 100 UNIT/ML injection Inject 24 Units under the skin Nightly. (Patient not taking: Reported on 12/22/2024) 10 mL 12 Insulin Lispro (Humalog) 100 UNIT/ML solution injection Inject 8 Units under the skin 3 times daily (with meals). 10 mL 12 insulin pen needle 32G x 4 mm misc Use as instructed 2 times daily 200 each 3 levothyroxine (Synthroid, Levoxyl) 175 MCG tablet Take 1 tablet (175 mcg) by mouth every morning (before breakfast). 90 tablet 3 melatonin 5 MG tablet Take 5 mg by mouth Nightly. (Patient not taking: Reported on 12/22/2024) metFORMIN, OSM, (Fortamet) 500 MG 24 hr tablet Take 500 mg by mouth daily. Do not crush, chew, or split. (Patient not taking: Reported on 12/22/2024) metoprolol tartrate (Lopressor) 50 MG tablet Take 1 tablet (50 mg) by mouth 2 times daily. (Patient taking differently: Take 25 mg by mouth 2 times daily.) 60 tablet 11 Multiple Vitamin (multivitamin) tablet Take 1 tablet by mouth daily. timolol (Timoptic) 0.5 % ophthalmic solution Administer 1 drop into both eyes in the morning and 1 drop in the evening. Hospitalist Progress Note 05/15/2025 Subjective: Admit Date: 05/11/2025 PCP: Christy Rizzo MD Room#: N4-458/N4-458 A BRIEF HOSPITAL COURSE: 70-yo F, PMHx for stage II grade 1 endometrial cancer who was treated with robotic hysterectomy, lymph node sampling and adjunctive radiotherapy, more recently she was found to have some lung nodules. Her other medical history includes atrial fibrillation with RVR, difficult to control diabetes (she admits that she does not take her Lantus as prescribed as she feels that it is too much normally), moderate aortic stenosis, hypertension, dyslipidemia, hypothyroidism, chronic lymphedema, she also has a tendency for malabsorption due to history of gastric bypass RADHA, GERD, asthma, diastolic heart failure, who presented to the hospital on 05/11/2025 due to multiple falls and inability to care for herself/bathe/perform ADLs. She has been trying to have her friends help her with her wounds but has been becoming more difficult. She endorses intermittent stool incontinence at night (2-3 episodes) as well as increased urinary frequency. In the emergency department, patient's blood pressure was elevated and she was tachycardic. Venous blood gas showed pH of 7.46, CO2 of 31, HCO3 of 22. BMP showed low sodium 135, hypokalemia 3.4, CO2 of 18, anion gap of 14, creatinine of 1.16, glucose of 399, magnesium 1.4, albumin 2.2 and a bilirubin of 1.3. Lactic acid was elevated at 3.1. CBC showed a leukocytosis 16.9 with left shift. Beta hydroxybutyrate was elevated at 9.6. UA showed 500 leukocyte esterase, greater than 100 WBC, many bacteria. Blood Cxs prelim results with no growth, final results pending.Urine negative Interval History: 05/14 ON: No acute events This AM: Patient heart rate noted to be in the 50s, metoprolol held, patient not having any symptoms - Patient endorsing some improvement in terms of her diarrhea/loose bowel movements. K: 3.4, will replace 05/15 ON: No acute overnight events This AM: Met patient sitting in her room chair endorsing feeling much better from her generalized fatigue and weakness standpoint, diarrhea is reducing and she is feels less pain from her buttocks and perineal wound. Called and updated family(Roe Melendrez) on 05/14 including discussion of imaging findings/PET scan of 01/14 that showed no evidence of hypermetabolic nodes or masses suggestive of malignancy. -K: Normalized at 3.6 Case and plan discussed with patient and bedside nurse. All questions answered. Adult diet Regular; 4 carb choices (60 gm/meal) 24HR INTAKE/OUTPUT: Intake/Output Summary (Last 24 hours) at 05/15/2025 0811 Last data filed at 05/15/2025 0300 Gross per 24 hour Intake 720 ml Output 1525 ml Net -805 ml Past Medical History: Medical History[1] LABS: CBC: Recent Labs 05/13/25 1350 05/14/25 0108 05/15/25 0515 WBC 10.4 8.7 8.2 RBC 3.49* 3.21* 3.56* HGB 10.4* 9.6* 10.6* HCT 32.9* 30.0* 33.2* MCV 94.3 93.5 93.3 RDW 13.3 13.2 13.1 PLT 303 264 323 BMP: Recent Labs 05/14/25 0108 05/15/25 0515 NA 140 137 K 3.4* 3.6 CL 113* 111* CO2 20* 22* BUN 16 19 CREATININE 0.70 0.66 GLUCOSE 115 74* CALCIUM 8.0* 8.3* ANIONGAP 7 4 LIVER PROFILE: No results for input(s): AST, ALT, BILITOT, ALKPHOS, PROT in the last 72 hours. No lab exists for component: LABALBU PT/INR: No results for input(s): PROTIME, INR in the last 72 hours. CARDIAC ENZYMES: No results for input(s): TROPONINI in the last 72 hours. Procalcitonin: Lab Results Component Value Date PROCAL 0.25 (H) 05/14/2025 COVID-19 PCR: No results for input(s): COVID19 in the last 72 hours. Objective: Vitals: BP 146/71 (BP Location: Left arm, Patient Position: Sitting) Pulse 57 Temp 36 C (96.8 F) (Temporal) Resp 18 Ht 5' 6 (1.676 m) Wt 206 lb 2.1 oz (93.5 kg) SpO2 97% BMI 33.27 kg/m Pulse Ox: SpO2 Av.5 % Min: 96 % Max: 97 % Supplemental O2: Physical Exam Vitals and nursing note reviewed. Constitutional: Appearance: Normal appearance. HENT: Head: Normocephalic and atraumatic. Right Ear: External ear normal. Left Ear: External ear normal. Mouth/Throat: Mouth: Mucous membranes are moist. Eyes: Conjunctiva/sclera: Conjunctivae normal. Cardiovascular: Rate and Rhythm: Normal rate. Pulmonary: Effort: Pulmonary effort is normal. No respiratory distress. Musculoskeletal: Cervical back: Neck supple. Comments: See media for wound pictures Neurological: Mental Status: She is alert and oriented to person, place, and time. Psychiatric: Behavior: Behavior normal. Medications: Scheduled PRN Scheduled Meds[2] PRN Meds[3] Continuous Continuous Meds[4] Assessment Acute, acute on chronic, unstable/uncontrolled chronic problems/diagnoses: Sepsis secondary to urinary tract infection/cellulitis: Cx still with no growth; will deescalate Abx as appropriate -d'art Vancomycin 05/12 and Cefepime 05/13 Gluteal and Groin wounds -cont Cefepime -goel drinage to avoid wound contamination. Hypokalemia: Resolved Mild DKA: Resolving, LA normal at 1.1 SAÚL: Resolved Hypomagnesemia: Resolved Hypoalbuminemia Stable chronic problems affecting care, new non-acute diagnoses: stage II grade 1 endometrial cancer Monitor for recurrence atrial fibrillation with RVR Metoprolol/Eliquis for rate control and anticoagulation moderate aortic stenosis Recommend outpatient echocardiogram Hypertension Cont Losartan 50 mg daily, started 05/14 Dyslipidemia Cont statin Hypothyroidism Levothyroxine ordered chronic lymphedema Wound care following, apprec recs elevate legs Plan As a result of the above findings & factors, the following mgmt was pursued: - Restart Home meds as appropriate - am labs, replace lytes prn - PT/OT/CM/SW - delirium precautions: increase activity and limit nighttime disturbances - DVT prophylaxis: encourage ambulation and already anticoagulated Advance Directive: DNR-CCA Anticipated Discharge - Date - TBD - Location - Home - Pending the following - Clinical improvement Total time spent (which include face to face and non face to face encounters) : 45 minutes Toxic drug monitoring/narrow therapeutic index drug monitoring : # Drug name : none # Route administered :na # Method of monitoring : na Extended Emergency Contact Information Primary Emergency Contact: Roe Melendrez Mobile Relation: Niece Secondary Emergency Contact: Jose Potter Mobile Relation: Sibling Alber Gil DO Division of Hospitalist Medicine [facility] [1] Past Medical History: Diagnosis Date Anxiety Asthma (HHS/HCC) Atrial fibrillation (HCC) Deficiency of nutrient elements Depression Dry eye Endometrial cancer (HCC) 09/30/2020 Fatigue Gastritis GERD (gastroesophageal reflux disease) Glaucoma Hyperlipidemia Hypertension Hypothyroidism Incontinence Intestinal malabsorption (HHS/HCC) Lymph edema Morbid obesity (CMS/HCC) Obstructive sleep apnea PMB (postmenopausal bleeding) Polycystic ovarian syndrome Psoriasis SOB (shortness of breath) on exertion Thyroglossal duct cyst Type 2 diabetes mellitus without complication (HCC) Urinary tract infection Uterine cancer (HCC) Vitamin D deficiency 05/10/2017 Zinc deficiency 06/21/2018 [2] apixaban, 5 mg, Oral, BID atorvastatin, 40 mg, Oral, Daily brimonidine, 1 drop, Both Eyes, BID chlorhexidine, , Topical, BID cholecalciferol, 50 mcg, Oral, Daily citalopram, 20 mg, Oral, Daily insulin glargine, 16 Units, SubCUTAneous, Nightly insulin lispro, 0-12 Units, SubCUTAneous, TID WC And insulin lispro, 0-12 Units, SubCUTAneous, Nightly Insulin Lispro, 4 Units, SubCUTAneous, TID WC levothyroxine, 175 mcg, Oral, qAM AC losartan, 50 mg, Oral, Daily metoprolol tartrate, 25 mg, Oral, BID miconazole, , Topical, BID sodium chloride 0.9%, 10 mL, IntraVENous, 2 times per day stomahesive in petrolatum, , Topical, BID therapeutic multivitamin-minerals, 1 tablet, Oral, Daily timolol, 1 drop, Both Eyes, BID [3] PRN medications: acetaminophen OR acetaminophen, chlorhexidine, dextrose, dextrose, glucagon (rDNA), glucose, loperamide, metoprolol, miconazole, naloxone, oxyCODONE OR oxyCODONE, polyethylene glycol (PEG) 3350, prochlorperazine OR prochlorperazine OR prochlorperazine, sodium chloride, sodium chloride 0.9%, stomahesive in petrolatum [4] Images from the original note were not included. PHYSICAL THERAPY [facility] Initial Evaluation Name/MRN: Dameon Potter ([id number]) Evaluation Date: 05/14/2025 Date of : 1955 Admission Date: 05/11/2025 5:34 PM Age: 70 y.o. Room/Bed: N4-458/N4-458 A Discharge Recommendation: Half-Way Facility Assessment IMPRESSION: Pt admitted for below. 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 Pt requires mod assist x1 to stand up this date on 3 attempts. Pt struggles secondary to weakness. Pt is noted to have wounds on buttock region with standing. Pt is unsteady throughout session and limited by fatigue. Pt needs skilled PT to improve balance, endurance and to improve strength to avoid further pressure injuries. Pt would benefit from SNF. Admitting Diagnosis: Hyperglycemia [R73.9] Ulcer of abdomen wall, limited to breakdown of skin [L98.431] Diabetic ketoacidosis without coma associated with diabetes mellitus due to underlying condition (HCC) [E08.10] Pressure injury of right buttock, stage 2 (CMS/HCC) [L89.312] Pressure injury of sacral region, stage 1 [L89.151] Prognosis: good Performance Deficits /Impairments: Increased Pain, Decreased Functional Mobility, Decreased ADL status, Decreased Strength, Decreased Safety Awareness, Decreased Endurance, and Decreased Balance Decision Making: Medium Complexity Subjective Pt agreeable for therapy. Pt is pleasant and cooperative. Pt reports no pain today but states her lymphedema on her legs always makes her weak. Pt reports struggling at home and realizes she is not safe to be there. Past Medical History: Medical History[1] Past Surgical History: Surgical History[2] Admission Diagnosis: Patient Active Problem List Diagnosis Date Noted Pressure injury of right buttock, stage 2 (CMS/HCC) 05/11/2025 Cellulitis of lower extremity 11/21/2024 Weight gain 11/21/2024 Poor sleep hygiene 11/10/2024 Cognitive decline 11/06/2024 Atrial fibrillation (HCC) 11/06/2024 Moderate aortic stenosis 11/06/2024 Severe malnutrition (CMS/HCC) (HCC) 11/03/2024 Lymphedema of both lower extremities 11/01/2023 MDD (major depressive disorder) 11/01/2023 Urinary incontinence 11/01/2023 Asthma (HHS/HCC) 11/01/2023 Chronic rhinitis 11/01/2023 RADHA (obstructive sleep apnea) 11/01/2023 Polycystic ovarian syndrome 11/01/2023 Corneal epithelial basement membrane dystrophy 10/03/2022 Diabetic retinopathy associated with type 2 diabetes mellitus (HCC) 07/05/2022 Malignant neoplasm of uterus (HCC) 07/05/2022 Malnutrition of mild degree (Bianchi: 75% to less than 90% of standard weight) (HCC) 07/05/2022 Moderate recurrent major depression (CMS/HCC) 07/05/2022 Thyroglossal duct cyst 07/05/2022 Type 2 diabetes mellitus with hyperglycemia (HCC) 07/05/2022 Postmenopausal bleeding 09/03/2020 Dry eye syndrome of bilateral lacrimal glands 11/04/2018 Nuclear sclerotic cataract, bilateral 05/24/2017 Posterior subcapsular age-related cataract of left eye 05/22/2017 Primary open angle glaucoma of both eyes, mild stage 11/13/2016 Cortical cataract of both eyes 05/05/2015 Chronic sinusitis 03/12/2013 Endometrial cancer ([facility]) 09/30/2020 Debility 06/20/2018 Morbid obesity (CMS/HCC) 01/31/2018 Hepatic steatosis 01/29/2018 Calculus of gallbladder with chronic cholecystitis without obstruction 01/29/2018 Essential hypertension, benign 01/29/2018 Mixed hyperlipidemia 01/29/2018 Vitamin D deficiency 12/27/2017 Gastroesophageal reflux disease without esophagitis 03/20/2017 Hypothyroidism 04/22/2015 OAB (overactive bladder) 03/24/2015 Medical Precautions: No active isolations Proper PPE donned/doffed in accordance with facility standards. Fall Risk: Mcleod Fall Risk Score: 85 (Low Risk) Mcleod Fall Risk Score: 85 (High Risk) Precautions/Restrictions: N/A Family/Caregiver Present: none Overall Cognitive Status: WFL Overall Orientation Status: Oriented x4 Vision: wears glasses at all times and and are being used during the eval Hearing: normal Social/Functional History Pt lives alone, split level home, sponge baths with friends help, unable to perform stairs and has been sleeping on recliner. Has bedside commode. Prior Level of Function Prior Level of ADL Function: Required Assist Prior Level of Mobility: Independent; Device: Front wheeled walker Prior Level of Transfers: Independent Objective Lower Extremity Assessment AROM: Exceptions: right hip flexion from seated position is grossly 10 degrees, LAQ is WFL; ankle is WFL; LLE is WFL Strength: Exceptions: right hip flexion is 3-/5; left hip flexion is 3+/5; LAQ is 4-/5 bilaterally; ankle pumps is 4-/5. Sensation: WFL Observation: edema on BLE; buttock wounds Balance: Balance During Session: Posture: fair Sitting - Static: SBA Sitting - Dynamic: SBA Standing - Static: Mod Assist Standing - Dynamic: Mod Assist Pt requires mod assist x1 with FWW. Cued on standing balance. Pt able to stand for ~3 minutes with FWW with mod assist x1. Bed Mobility: Pt up in chair upon arrival Transfers Sit to stand: Mod Assist Stand to sit: Mod Assist Patient mod assist x1 on 3 attempts. Difficulty with rocking forward. Inability to push up. Ambulation Ambulation 1 Assistive device(s) used: Front wheeled walker Assist level: Mod Assist Distance (ft): 12 feet x1, 4 feet x1 Quality of gait: uneven step length, heavy reliance on FWW Exercises 1) gluteal set, LAQ, hip flexion, hip march, and ankle pump for 10 reps. Encouraged 2-3x per day Wrote exercises down for patient When sitting back in chair, pt had waffle cushion and dry pad underneath Outcome Measures AM-PAC How much HELP from another person do you currently need Turning from your back to your side while in a flat bed without using bedrails?: A Lot Moving from lying on your back to sitting on the side of a flat bed without using bedrails?: A Lot Moving to and from a bed to a chair (including a wheelchair)?: A Lot Standing up from a chair using your arms (wheelchair or bedside chair)?: A Little Walking in a hospital room?: A Little Stair climbing assessed?: No AM-PAC Inpatient Mobility Raw Score (No Stairs) : 12 JH-HLM JH-HLM Scale: Walked 10 steps or more (i.e. walked to restroom) Plan Pt would benefit from skilled acute PT services to address Strengthening, ROM, Gait Training, Balance Training, Functional Mobility Training, Endurance Training, Safety Education and Training, Stair Training, Pain Management, Equipment Evaluation/Education, Neuromuscular Re-Education Training, and Positioning. Frequency: 3x/weekfor 2 weeks Barriers: Impaired balance, Lower extremity weakness, and Decreased endurance Safety/Education Safety Safety Devices in place: All fall risk precautions in place, call light within reach, left in chair, chair alarm in place, gait belt, patient at risk for falls, and no alarms engaged upon entry Restraints: N/A Education Education Given To: patient Education Provided: PT Role, PT Goals, Plan of Care, Transfer Training, Discharge Recommendations, and Benefits of Increasing Activity Education Method: Verbal and Demonstration Barriers to Learning: None Education Outcome: Verbalized Understanding Goals Patient Stated Goal: to get better overall Encounter Problems Encounter Problems (Active) Mobility Patient will ambulate 75 feet with modified independence and least restrictive device in order to improve safety and independence with mobility. Start: 05/14/25 Expected End: 05/29/25 Transfers Patient will perform bed mobility with independence in order to improve independence and prepare for out of bed mobility. Start: 05/14/25 Expected End: 05/29/25 Patient will complete functional transfer with least restrictive device with modified independence in order to prepare for ambulation. Start: 05/14/25 Expected End: 05/29/25 Therapy Time Individual Co-Treatment Co-Evaluation Time In 1413 Time Out 1440 Minutes 27 Timed Code Treatment Minutes: 11 Minutes (1 unit of TP) Williams Savage, PT Patient's Physical Therapy Plan of Care supervision is transferred to a [facility] Therapy Services Physical Therapist. Goals and/or treatment plan was established in collaboration with patient/family/other representatives. [1] Past Medical History: Diagnosis Date Anxiety Asthma (HHS/HCC) Atrial fibrillation (HCC) Deficiency of nutrient elements Depression Dry eye Endometrial cancer (HCC) 09/30/2020 Fatigue Gastritis GERD (gastroesophageal reflux disease) Glaucoma Hyperlipidemia Hypertension Hypothyroidism Incontinence Intestinal malabsorption (HHS/HCC) Lymph edema Morbid obesity (CMS/HCC) Obstructive sleep apnea PMB (postmenopausal bleeding) Polycystic ovarian syndrome Psoriasis SOB (shortness of breath) on exertion Thyroglossal duct cyst Type 2 diabetes mellitus without complication (HCC) Urinary tract infection Uterine cancer (HCC) Vitamin D deficiency 05/10/2017 Zinc deficiency 06/21/2018 [2] Past Surgical History: Procedure Laterality Date CATARACT EXTRACTION Bilateral CHOLECYSTECTOMY 01/29/2018 w/ LRYGB and Umbilical Hernia repair - [facility] DILATION AND CURETTAGE OF UTERUS 09/03/2020 with hysteroscopy GASTRIC BYPASS 01/29/2018 LRYGB w/ Lap Aggie and Umbilical Hernia repair, [facility] GASTRIC BYPASS HYSTERECTOMY 09/30/2020 [facility]; Dr. Cuauhtemoc Stubbs MOUTH SURGERY 1979' gum removal to expose wisdom teeth THYROGLOSSAL DUCT EXCISION 2000 [facility]- Dr. Vin Keating THYROIDECTOMY thyroid cyst UMBILICAL HERNIA REPAIR 01/29/2018 w/ LRYGB and Lap Aggie - [facility] UPPER GASTROINTESTINAL ENDOSCOPY 03/20/2017 pre op, [facility] WISDOM TOOTH EXTRACTION 2012 [facility] Images from the original note were not included. [facility] Wound Care Progress Note Dameon Potter AGE: 70 y.o. GENDER: female : 1955 Subjective: HISTORY of PRESENT ILLNESS HPI Dameon Potter is a 70 y.o. female who presents for a wound care follow up. HPI: Per chart review, 70-year-old female with past medical history of stage II grade 1 endometrial cancer who was treated with robotic hysterectomy, lymph node sampling and adjunctive radiotherapy, more recently she was found to have some lung nodules. Her other medical history includes atrial fibrillation with RVR, difficult to control diabetes (she admits that she does not take her Lantus as prescribed as she feels that it is too much normally), moderate aortic stenosis, hypertension, dyslipidemia, hypothyroidism, chronic lymphedema, she also has a tendency for malabsorption due to history of gastric bypass RADHA, GERD, asthma, diastolic heart failure, who presented to the hospital on 05/11/2025 due to multiple falls and inability to care for herself/bathe/perform ADLs. She has been trying to have her friends help her with her wounds but has been becoming more difficult. She endorses intermittent stool incontinence at night (2-3 episodes) as well as increased urinary frequency. Wound Care consulted for Pressure Injury; Sacrum. Patient resting in envella bed. Treatment noted at bedside. PAST MEDICAL HISTORY Medical History[1] PAST SURGICAL HISTORY Surgical History[2] FAMILY HISTORY Family History[3] SOCIAL HISTORY Social History[4] ALLERGIES Allergies[5] MEDICATIONS Medications Ordered Prior to Encounter[6] REVIEW OF SYSTEMS Pertinent items are noted in HPI. Objective: BP (!) 176/80 (BP Location: Left arm, Patient Position: Lying) Pulse 53 Temp 36.4 C (97.5 F) (Temporal) Resp 12 Ht 5' 6 (1.676 m) Wt 206 lb 2.1 oz (93.5 kg) SpO2 96% BMI 33.27 kg/m PHYSICAL EXAM General appearance: in no apparent distress, well developed and well nourished, non-toxic, in no respiratory distress and acyanotic, and alert Skin: warm and dry Pulmonary: Normal effort, no respiratory distress, no cyanosis Abdominal fold/Groin: Scattered superficial wounds noted. [place]/red tissue. Moisture/excoriation noted. Erythema present. 05/12/25 Bilateral medial thighs: Erythema present. Excoriation noted. Tenderness on palpation. Edema noted. 05/12/25 Sacrum extending to Bilateral Buttock: Full thickness wounds noted to be scattered with intact skin bridges. Purple non-blanchable tissue, slough, and pink tissue to wound bed. Areas of scabbing noted. Small amount of serosang drainage present. Susan-wound intact and fragile. Odor noted on exam. 05/12/25 LABS CBC: Lab Results Component Value Date WBC 8.7 05/14/2025 HGB 9.6 (L) 05/14/2025 HGB 11.5 05/11/2025 HCT 30.0 (L) 05/14/2025 MCV 93.5 05/14/2025 PLT 264 05/14/2025 BMP: Lab Results Component Value Date NA 140 05/14/2025 K 3.4 (L) 05/14/2025 CL 113 (H) 05/14/2025 CO2 20 (L) 05/14/2025 PHOS 2.1 (L) 05/11/2025 BUN 16 05/14/2025 CREATININE 0.70 05/14/2025 PT/INR: No results found for: PROTIME, INR Prealbumin: No results found for: PREALBUMIN Albumin:No components found for: LABALBU Sed Rate:No results found for: SEDRATE Micro: No components found for: BC Assessment/Plan: Nursing staff to perform dressing change: Abdominal Fold/Groin: Fungal Dermatitis -Cleanse with Hibiclens soap and water. Apply miconazole powder. Leave GEREMIAS. Apply BID and PRN Bilateral medial thighs: Fungal Dermatitis -Cleanse with Hibiclens soap and water. Apply miconazole powder. Leave GEREMIAS. 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 Apply miconazole powder to wound bed, followed by ET mix. Leave [employer]GER. Apply BID and PRN -waffle chair cushion -Q2hr/PRN turns -glide sheets for T&R -continence checks Q1-2 Hrs/PRN - Envella bed with pillow offloading - Currently resting on Nutritional support Wound Care to follow Recommend to follow up at [facility] Outpatient wound care center after hospital discharge. Any questions or concerns please secure chat [facility] wound/ostomy. Thank you for the consult! I personally obtained the barragan and critical portions of the history and physical exam. I reviewed the labs, imaging studies, and electronic medical record. I reviewed the chart documentation and discussed the patient with treatment team members. I have edited the note to reflect my clinical findings and my assessment and plan. Please note, the time of this note does not reflect the time I saw this patient today, but the time of this documentaton. Portions of this note including HPI, ROS, impression/plan, and examination may have been copied forward from admission to today as to provide important historical information essential in contributing to medical decision making. Documentation has been reviewed and edited as necessary to support clinical decision making for today's visit and to reflect my own independent evaluation of this patient. Decision making for today's visit and to reflect my own independent evaluation of this patient. [1] Past Medical History: Diagnosis Date Anxiety Asthma (HHS/HCC) Atrial fibrillation (HCC) Deficiency of nutrient elements Depression Dry eye Endometrial cancer (HCC) 09/30/2020 Fatigue Gastritis GERD (gastroesophageal reflux disease) Glaucoma Hyperlipidemia Hypertension Hypothyroidism Incontinence Intestinal malabsorption (HHS/HCC) Lymph edema Morbid obesity (CMS/HCC) Obstructive sleep apnea PMB (postmenopausal bleeding) Polycystic ovarian syndrome Psoriasis SOB (shortness of breath) on exertion Thyroglossal duct cyst Type 2 diabetes mellitus without complication (HCC) Urinary tract infection Uterine cancer (HCC) Vitamin D deficiency 05/10/2017 Zinc deficiency 06/21/2018 [2] Past Surgical History: Procedure Laterality Date CATARACT EXTRACTION Bilateral CHOLECYSTECTOMY 01/29/2018 w/ LRYGB and Umbilical Hernia repair - [facility] DILATION AND CURETTAGE OF UTERUS 09/03/2020 with hysteroscopy GASTRIC BYPASS 01/29/2018 LRYGB w/ Lap Aggie and Umbilical Hernia repair, [facility] GASTRIC BYPASS HYSTERECTOMY 09/30/2020 [facility]; Dr. Cuauhtemoc Stubbs MOUTH SURGERY gum removal to expose wisdom teeth THYROGLOSSAL DUCT EXCISION 2000 [facility]- Dr. Vin Keating THYROIDECTOMY thyroid cyst UMBILICAL HERNIA REPAIR 01/29/2018 w/ LRYGB and Lap Aggie - [facility] UPPER GASTROINTESTINAL ENDOSCOPY 03/20/2017 pre op, [facility] WISDOM TOOTH EXTRACTION 2012 [facility] [3] Family History Problem Relation Name Age of Onset Obesity Mother dementia Diabetes Mother dementia High Blood Pressure Mother dementia Heart disease Mother dementia Stroke Father High Blood Pressure Father Diabetes Father Bladder Cancer Father Obesity Father High Blood Pressure Brother Heart attack Paternal Grandmother Stroke Paternal Grandfather Diabetes Paternal Grandfather Colon cancer Neg Hx [4] Social History Tobacco Use Smoking status: Never Smokeless tobacco: Never Substance Use Topics Alcohol use: No Drug use: No [5] Allergies Allergen Reactions Bimatoprost Other Blurred vision Doxycycline Hives Erythromycin Hives Levaquin [Levofloxacin] Hives Macrobid [Nitrofurantoin] Hives Penicillins Hives Levofloxacin In D5w Swelling oral Macrolides And Ketolides Hives 1980 Molds & Smuts Itching Mold allergy Nitrofurantoin Monohyd Macro Itching Other Itching [6] No current facility-administered medications on file prior to encounter. Current Outpatient Medications on File Prior to Encounter Medication Sig Dispense Refill albuterol 108 (90 Base) MCG/ACT inhaler Inhale 2 puffs every 6 hours as needed. (Patient not taking: Reported on 12/22/2024) apixaban (Eliquis) 5 MG tablet Take 1 tablet (5 mg) by mouth 2 times daily. 60 tablet 0 atorvastatin (Lipitor) 40 MG tablet Take by mouth daily. BD Insulin Syringe U/F 30G X 1/2 0.5 ML misc 2 times daily with insulin 200 each 3 brimonidine (AlphaGAN P) 0.1 % ophthalmic solution Administer 1 drop into both eyes 3 times a day. cholecalciferol (Vitamin D-3) 25 MCG (1000 UT) capsule Take 50 mcg by mouth daily. citalopram (CeleXA) 20 MG tablet Take 20 mg by mouth daily. Continuous Glucose Sensor (FreeStyle Satya 3 Sensor) misc 1 Device every 14 (fourteen) days. 7 each 3 EPINEPHRINE HCL, ANAPHYLAXIS, IM Inject into the shoulder, thigh, or buttocks. (Patient not taking: Reported on 12/22/2024) FREESTYLE LITE test strip 1 each by Other route 4 times daily. As directed (Patient not taking: Reported on 12/22/2024) 400 each 3 glucose 4 g chewable tablet Chew 16 g if needed for low blood sugar. (Patient not taking: Reported on 12/22/2024) insulin glargine (Lantus) 100 UNIT/ML injection Inject 24 Units under the skin Nightly. (Patient not taking: Reported on 12/22/2024) 10 mL 12 Insulin Lispro (Humalog) 100 UNIT/ML solution injection Inject 8 Units under the skin 3 times daily (with meals). 10 mL 12 insulin pen needle 32G x 4 mm misc Use as instructed 2 times daily 200 each 3 levothyroxine (Synthroid, Levoxyl) 175 MCG tablet Take 1 tablet (175 mcg) by mouth every morning (before breakfast). 90 tablet 3 melatonin 5 MG tablet Take 5 mg by mouth Nightly. (Patient not taking: Reported on 12/22/2024) metFORMIN, OSM, (Fortamet) 500 MG 24 hr tablet Take 500 mg by mouth daily. Do not crush, chew, or split. (Patient not taking: Reported on 12/22/2024) metoprolol tartrate (Lopressor) 50 MG tablet Take 1 tablet (50 mg) by mouth 2 times daily. (Patient taking differently: Take 25 mg by mouth 2 times daily.) 60 tablet 11 Multiple Vitamin (multivitamin) tablet Take 1 tablet by mouth daily. timolol (Timoptic) 0.5 % ophthalmic solution Administer 1 drop into both eyes in the morning and 1 drop in the evening. Cosigned by Carlitos Montano DO at 05/18/2025 12:55 PM EDT Hospitalist Progress Note 05/14/2025 Subjective: Admit Date: 05/11/2025 PCP: Christy Rizzo MD Room#: N4-458/N4-458 A BRIEF HOSPITAL COURSE: 70-yo F, PMHx for stage II grade 1 endometrial cancer who was treated with robotic hysterectomy, lymph node sampling and adjunctive radiotherapy, more recently she was found to have some lung nodules. Her other medical history includes atrial fibrillation with RVR, difficult to control diabetes (she admits that she does not take her Lantus as prescribed as she feels that it is too much normally), moderate aortic stenosis, hypertension, dyslipidemia, hypothyroidism, chronic lymphedema, she also has a tendency for malabsorption due to history of gastric bypass RADHA, GERD, asthma, diastolic heart failure, who presented to the hospital on 05/11/2025 due to multiple falls and inability to care for herself/bathe/perform ADLs. She has been trying to have her friends help her with her wounds but has been becoming more difficult. She endorses intermittent stool incontinence at night (2-3 episodes) as well as increased urinary frequency. In the emergency department, patient's blood pressure was elevated and she was tachycardic. Venous blood gas showed pH of 7.46, CO2 of 31, HCO3 of 22. BMP showed low sodium 135, hypokalemia 3.4, CO2 of 18, anion gap of 14, creatinine of 1.16, glucose of 399, magnesium 1.4, albumin 2.2 and a bilirubin of 1.3. Lactic acid was elevated at 3.1. CBC showed a leukocytosis 16.9 with left shift. Beta hydroxybutyrate was elevated at 9.6. UA showed 500 leukocyte esterase, greater than 100 WBC, many bacteria. Blood Cxs prelim results with no growth, final results pending.Urine negative Interval History: 05/12 ON: No overnight issues. This AM: Bob in bed in no obvious distress, endorsing feeling better from the generalized weakness standpoint though still not able to ambulate freely 05/13 ON: No acute events This AM: Laying in bed in no obvious distress and endorsing feeling better from her generalized weakness and pain at her groin and buttocks. Denies any CP, SOB or Dizziness -Cx with no growth: will d'c antibiotics and monitor 05/14 ON: No acute events This AM: Patient heart rate noted to be in the 50s, metoprolol held, patient not having any symptoms - Patient endorsing some improvement in terms of her diarrhea/loose bowel movements. K: 3.4, will replace Case and plan discussed with patient and bedside nurse. All questions answered. Adult diet Regular; 4 carb choices (60 gm/meal) 24HR INTAKE/OUTPUT: Intake/Output Summary (Last 24 hours) at 05/14/2025 0715 Last data filed at 05/13/2025 2244 Gross per 24 hour Intake 350 ml Output 700 ml Net -350 ml Past Medical History: Medical History[1] LABS: CBC: Recent Labs 05/11/25235205/13/25 1350 05/14/25 0108 WBC 12.7* 10.4 8.7 RBC 3.64* 3.49* 3.21* HGB 11.1* 10.4* 9.6* HCT 33.1* 32.9* 30.0* MCV 90.9 94.3 93.5 RDW 13.0 13.3 13.2 PLT 325 303 264 BMP: Recent Labs 05/11/25181005/11/25 2353 05/14/25 0108 NA 135* 138 140 K 3.4* 3.0* 3.4* CL 103 108* 113* CO2 18* 21* 20* BUN 21 20 16 CREATININE 1.16* 0.92 0.70 GLUCOSE 399* 176* 115 CALCIUM 8.5* 8.6* 8.0* ANIONGAP 14* 9 7 LIVER PROFILE: Recent Labs 05/11/25181005/11/252352 AST 16 15 ALT <6 <6 BILITOT 1.3* 1.0 ALKPHOS 77 68 PROT 6.8 6.5 PT/INR: No results for input(s): PROTIME, INR in the last 72 hours. CARDIAC ENZYMES: No results for input(s): TROPONINI in the last 72 hours. Procalcitonin: Lab Results Component Value Date PROCAL 0.25 (H) 05/14/2025 COVID-19 PCR: No results for input(s): COVID19 in the last 72 hours. Objective: Vitals: BP 122/65 (BP Location: Left arm, Patient Position: Lying) Pulse 52 Temp 36.3 C (97.3 F) (Temporal) Resp 16 Ht 5' 6 (1.676 m) Wt 206 lb 2.1 oz (93.5 kg) SpO2 99% BMI 33.27 kg/m Pulse Ox: SpO2 Av.3 % Min: 97 % Max: 99 % Supplemental O2: Physical Exam Vitals and nursing note reviewed. Constitutional: Appearance: Normal appearance. HENT: Head: Normocephalic and atraumatic. Right Ear: External ear normal. Left Ear: External ear normal. Mouth/Throat: Mouth: Mucous membranes are moist. Eyes: Conjunctiva/sclera: Conjunctivae normal. Cardiovascular: Rate and Rhythm: Normal rate. Pulmonary: Effort: Pulmonary effort is normal. No respiratory distress. Musculoskeletal: Cervical back: Neck supple. Comments: See media for wound pictures Neurological: Mental Status: She is alert and oriented to person, place, and time. Psychiatric: Behavior: Behavior normal. Medications: Scheduled PRN Scheduled Meds[2] PRN Meds[3] Continuous Continuous Meds[4] Assessment Acute, acute on chronic, unstable/uncontrolled chronic problems/diagnoses: Sepsis secondary to urinary tract infection/cellulitis: Cx still with no growth; will deescalate Abx as appropriate -d'art Vancomycin 05/12 and Cefepime 05/13 Gluteal and Groin wounds -cont Cefepime -goel drinage to avoid wound contamination. Hypokalemia: will trend and replace as needed Mild DKA: Resolving, LA normal at 1.1 SAÚL: Resolved Hypomagnesemia: Resolved Hypoalbuminemia Stable chronic problems affecting care, new non-acute diagnoses: stage II grade 1 endometrial cancer Monitor for recurrence atrial fibrillation with RVR Metoprolol/Eliquis for rate control and anticoagulation moderate aortic stenosis Recommend outpatient echocardiogram Hypertension Cont Losartan 50 mg daily, started 05/14 Dyslipidemia Cont statin Hypothyroidism Levothyroxine ordered chronic lymphedema Wound care following, apprec recs elevate legs Plan As a result of the above findings & factors, the following mgmt was pursued: - Restart Home meds as appropriate - am labs, replace lytes prn - PT/OT/CM/SW - delirium precautions: increase activity and limit nighttime disturbances - DVT prophylaxis: encourage ambulation and already anticoagulated Advance Directive: DNR-CCA Anticipated Discharge - Date - TBD - Location - Home - Pending the following - Clinical improvement Total time spent (which include face to face and non face to face encounters) : 45 minutes Toxic drug monitoring/narrow therapeutic index drug monitoring : # Drug name : none # Route administered :na # Method of monitoring : na Extended Emergency Contact Information Primary Emergency Contact: Tariq SnowNievesBenedictalberto Mobile Relation: Niece Secondary Emergency Contact: Jose Potter Mobile Relation: Huma Campo Mba, Division of Hospitalist Medicine [facility] [1] Past Medical History: Diagnosis Date Anxiety Asthma (HHS/HCC) Atrial fibrillation (HCC) Deficiency of nutrient elements Depression Dry eye Endometrial cancer (HCC) 09/30/2020 Fatigue Gastritis GERD (gastroesophageal reflux disease) Glaucoma Hyperlipidemia Hypertension Hypothyroidism Incontinence Intestinal malabsorption (HHS/HCC) Lymph edema Morbid obesity (CMS/HCC) Obstructive sleep apnea PMB (postmenopausal bleeding) Polycystic ovarian syndrome Psoriasis SOB (shortness of breath) on exertion Thyroglossal duct cyst Type 2 diabetes mellitus without complication (HCC) Urinary tract infection Uterine cancer (HCC) Vitamin D deficiency 05/10/2017 Zinc deficiency 06/21/2018 [2] apixaban, 5 mg, Oral, BID atorvastatin, 40 mg, Oral, Daily brimonidine, 1 drop, Both Eyes, BID chlorhexidine, , Topical, BID cholecalciferol, 50 mcg, Oral, Daily citalopram, 20 mg, Oral, Daily insulin glargine, 16 Units, SubCUTAneous, Nightly insulin lispro, 0-12 Units, SubCUTAneous, TID WC And insulin lispro, 0-12 Units, SubCUTAneous, Nightly Insulin Lispro, 4 Units, SubCUTAneous, TID WC levothyroxine, 175 mcg, Oral, qAM AC metoprolol tartrate, 25 mg, Oral, BID miconazole, , Topical, BID sodium chloride 0.9%, 10 mL, IntraVENous, 2 times per day stomahesive in petrolatum, , Topical, BID therapeutic multivitamin-minerals, 1 tablet, Oral, Daily timolol, 1 drop, Both Eyes, BID [3] PRN medications: acetaminophen OR acetaminophen, chlorhexidine, dextrose, dextrose, glucagon (rDNA), glucose, loperamide, metoprolol, miconazole, naloxone, oxyCODONE OR oxyCODONE, polyethylene glycol (PEG) 3350, prochlorperazine OR prochlorperazine OR prochlorperazine, sodium chloride, sodium chloride 0.9%, stomahesive in petrolatum [4] Nutrition Assessment Type and Reason for Visit: Positive Nutrition Screen, Initial, Wound Nutrition Recommendations/Plan: Per MNT protocol will modify Adult diet Regular to include 60 g CHO controlled diet Supplement(s): added chocolate ensure max protein HS snack (provides 150 kcals, 30 grams protein, 11 oz per serving) per MNT protocol Will continue to monitor labs, meds, po intakes and/or enteral nutrition tolerance, skin integrity, wt trends, and overall nutrition status - RD to follow weekly Malnutrition Assessment: Malnutrition Status: Insufficient data Context: Acute Illness Chief Complaint Patient presents with Weakness, Gen Pt arrives from home by ems stating she has felt weak for multiple days and thinks she might have a UTI. Past Medical and Surgical History: Medical History[1] Surgical History[2] Interval History: 05/12 ON: No overnight issues. This AM: Bob in bed in no obvious distress, endorsing feeling better from the generalized weakness standpoint though still not able to ambulate freely, Nutrition Assessment: LOS# 2. 70F w/ PMHx: Afib w/ RVR, difficult to control diabetes (she admits that she does not take her Lantus as prescribed as she feels that it is too much normally), moderate , HTN, dyslipidemia, hypothyroidism, chronic lymphedema, RADHA, GERD, asthma, diastolic heart failure, stage II grade 1 endometrial cancer s/p robotic hysterectomy, lymph node sampling and adjunctive radiotherapy, more recently she was found to have some lung nodules; She also has a tendency for malabsorption due to history of gastric bypass who presented to the hospital on 05/11 d.t multiple falls and inability to care for self, perform ADLs. Lives alone and has been trying to have friends help care for her wounds but this has become more difficult. Endorses intermittent stool incontinence at night (2-3 episodes) as well as increased urinary frequency. She was admitted for sepsis 2/2 UTI/cellulitis and wounds. Mild DKA resolving, SAÚL and hypomagnesemia resolved. Wounds are hard to keep clean d/t incontinence and location of wounds - Goel ordered and placed 05/12. Po intakes or regular diet 99272% this morning. CBW 201# - some wt loss is noted, however not clinically significant at this time. A1c improved since October 12.9% -> 7.3%. Pt unavailable for RD discussion x 2 attempts. Estimated Daily Nutrient Needs: Energy Requirements Based On: Kcal/kg Weight Used for Energy Requirements: Baring Weight for Energy Calculation (kg): 59 kg Total Energy Requirements (kcals/day): 4547-9825 (25-30 kcals/kg) Weight Used for Protein Requirements: Baring Weight in Kg Used for Protein Requirements: 59 kg Estimated Total Protein (g/day): 71-89 (1.2-1.5 g/kg) Estimated Daily Total Fluid (ml/day): 1 ml/kcal or per MD Nutrition Related Findings: Wound Type: Multiple (per wound care: 1.) Abdominal Fold/Groin: Fungal Dermatitis; 2.) Bilateral medial thighs: Fungal Dermatitis; 3.) Sacrum extending to bilateral buttocks: Unstageable pressure injury with MASD (bodily fluids)/fungal dermatitis); Can Scale Score: 13 Isolation Status: No active isolations Food Allergies: NKFA Teeth: Missing teeth Swallow: Able to swallow solids and liquids without difficulty Feeding: Independent Room Service: Selective Edema: BLE Edema: Non-pitting Gastrointestinal (WDL): Within Defined Limits Last BM Date: 05/13/25 Lives with: Alone Level of Consciousness: Alert; Orientation Level: Oriented X4 Code Status, Vital Signs, Oxygen Needs, I/Os: Code Status: DNR-CCA Vital Signs: Temp: 36.2 C (97.2 F); Heart Rate: 56; Resp: 16; BP: (!) 165/81; Temp: 36.2 C (97.2 F); MAP (mmHg): 109 Oxygen Therapy: None (Room air); SpO2: 97 % Net IO Since Admission: 3,536.25 mL [05/13/25 1407] Intake/Output Summary (Last 24 hours) at 05/13/2025 140 Last data filed at 05/13/2025 0952 Gross per 24 hour Intake 1547.5 ml Output 310 ml Net 1237.5 ml Labs/Meds Reviewed: Scheduled Meds[3] Continuous Meds[4] BMP: Recent Labs 05/11/25181005/11/252352 NA 135* 138 K 3.4* 3.0* CL 103 108* CO2 18* 21* BUN 21 20 CREATININE 1.16* 0.92 GLUCOSE 399* 176* CALCIUM 8.5* 8.6* MG 1.4* 2.0 PHOS 2.1* -- HEPATIC: Recent Labs 05/11/25181005/11/25 2353 AST 16 15 ALT <6 <6 BILITOT 1.3* 1.0 ALKPHOS 77 68 CBC: Recent Labs 05/11/25181005/11/25 1937 05/11/253 05/13/25 1350 WBC 16.9* -- 12.7* 10.4 HGB 11.6* 11.5 11.1* 10.4* HCT 35.2 -- 33.1* 32.9* MCV 91.0 -- 90.9 94.3 PLT 336 -- 325 303 Lab Results Component Value Date EFBP 61 11/03/2024 Lab Results Component Value Date LDLCALC 71 04/29/2024 HDL 44 04/29/2024 CHOL 142 04/29/2024 TRIG 137 04/29/2024 Lab Results Component Value Date TSH 3.03 11/02/2024 VITD25 22 (L) 04/06/2021 [id number] 1,369 (H) 11/03/2024 FOLATE 16.6 03/04/2020 ZINC 74.5 03/04/2020 FERRITIN 77 03/04/2020 Lab Results Component Value Date HGBA1C 7.3 (H) 05/11/2025 HGBA1C 12.9 (H) 11/02/2024 HGBA1C 12.4 04/29/2024 Recent Labs 05/11/25202205/11/25 2326 05/12/25 0741 05/12/25 1115 05/12/25 1638 05/12/25 1935 05/13/25 0810 05/13/25 1222 POCGLU 273* 176* 146* 133* 243* 207* 130* 149* Current Nutrition Therapies: Adult diet Regular Current Oral Intake Average Meal Intake: 76-100% Average Supplements Intake: None Ordered Anthropometric Measures: Height: 167.6 cm (5' 6) Current Body Weight: 91.2 kg (201 lb) Baring Body Weight (lbs) (Calculated): 130 lbs Baring Body Weight (Kg) (Calculated): 59 kg % Baring Body Weight (Calculated): 154.6 % BMI (kg/m2) (Calculated): 32.5 Weight Adjustment For: No Adjustment BMI (Calculated): 32.5 Weight: 91.3 kg (201 lb 4.5 oz) Weight Method: Bed scale Weight History: Wt Readings from Last 10 Encounters: 05/13/25 91.3 kg (201 lb 4.5 oz) 12/22/24 98 kg (216 lb) 12/08/24 100 kg (221 lb) 11/25/24 101 kg (222 lb) 11/18/24 99.3 kg (219 lb) 11/12/24 95.3 kg (210 lb 3.2 oz) 11/10/24 95.3 kg (210 lb 3.2 oz) 11/06/24 96.6 kg (213 lb) 11/05/24 98.9 kg (218 lb) 03/26/24 116 kg (255 lb 4.8 oz) Nutrition Diagnosis: Increased nutrient needs related to increase demand for energy/nutrients as evidenced by wounds Nutrition Interventions: Food and/or Nutrient Delivery: Modify Current Diet and Start Oral Nutrition Supplement Nutrition Education/Counseling: No recommendation at this time Coordination of Nutrition Care: Continue to monitor while inpatient Goals: Goals: Meet at least 75% of estimated needs Nutrition Monitoring and Evaluation: Behavioral-Environmental Outcomes: None Identified Food/Nutrient Intake Outcomes: Food and Nutrient Intake, Supplement Intake Physical Signs/Symptoms Outcomes: Biochemical Data, Weight, Skin Discharge Planning: Too soon to determine Sharon Aceves MS, RD, LD Contact: or [employer] Chat (dial *[phone] from hospital phone) [1] Past Medical History: Diagnosis Date Anxiety Asthma (HHS/HCC) Atrial fibrillation (HCC) Deficiency of nutrient elements Depression Dry eye Endometrial cancer (HCC) 09/30/2020 Fatigue Gastritis GERD (gastroesophageal reflux disease) Glaucoma Hyperlipidemia Hypertension Hypothyroidism Incontinence Intestinal malabsorption (HHS/HCC) Lymph edema Morbid obesity (CMS/HCC) Obstructive sleep apnea PMB (postmenopausal bleeding) Polycystic ovarian syndrome Psoriasis SOB (shortness of breath) on exertion Thyroglossal duct cyst Type 2 diabetes mellitus without complication (HCC) Urinary tract infection Uterine cancer (HCC) Vitamin D deficiency 05/10/2017 Zinc deficiency 06/21/2018 [2] Past Surgical History: Procedure Laterality Date CATARACT EXTRACTION Bilateral CHOLECYSTECTOMY 01/29/2018 w/ LRYGB and Umbilical Hernia repair - [facility] DILATION AND CURETTAGE OF UTERUS 09/03/2020 with hysteroscopy GASTRIC BYPASS 01/29/2018 LRYGB w/ Lap Aggie and Umbilical Hernia repair, [facility] GASTRIC BYPASS HYSTERECTOMY 09/30/2020 [facility]/BSO; Dr. Cuauhtemoc Stubbs MOUTH SURGERY 1979' gum removal to expose wisdom teeth THYROGLOSSAL DUCT EXCISION [facility]- Dr. Vin Keating THYROIDECTOMY thyroid cyst UMBILICAL HERNIA REPAIR 01/29/2018 w/ LRYGB and Lap Aggie - [facility] UPPER GASTROINTESTINAL ENDOSCOPY 03/20/2017 pre op, [facility] WISDOM TOOTH EXTRACTION 2012 [facility] [3] apixaban, 5 mg, Oral, BID atorvastatin, 40 mg, Oral, Daily brimonidine, 1 drop, Both Eyes, BID chlorhexidine, , Topical, BID cholecalciferol, 50 mcg, Oral, Daily citalopram, 20 mg, Oral, Daily insulin glargine, 16 Units, SubCUTAneous, Nightly insulin lispro, 0-12 Units, SubCUTAneous, TID WC And insulin lispro, 0-12 Units, SubCUTAneous, Nightly Insulin Lispro, 4 Units, SubCUTAneous, TID WC levothyroxine, 175 mcg, Oral, qAM AC metoprolol tartrate, 25 mg, Oral, BID miconazole, , Topical, BID sodium chloride 0.9%, 10 mL, IntraVENous, 2 times per day stomahesive in petrolatum, , Topical, BID therapeutic multivitamin-minerals, 1 tablet, Oral, Daily timolol, 1 drop, Both Eyes, BID [4] Hospitalist Progress Note 05/13/2025 Subjective: Admit Date: 05/11/2025 PCP: Christy Rizzo MD Room#: [id number] A BRIEF HOSPITAL COURSE: 70-yo F, PMHx for stage II grade 1 endometrial cancer who was treated with robotic hysterectomy, lymph node sampling and adjunctive radiotherapy, more recently she was found to have some lung nodules. Her other medical history includes atrial fibrillation with RVR, difficult to control diabetes (she admits that she does not take her Lantus as prescribed as she feels that it is too much normally), moderate aortic stenosis, hypertension, dyslipidemia, hypothyroidism, chronic lymphedema, she also has a tendency for malabsorption due to history of gastric bypass RADHA, GERD, asthma, diastolic heart failure, who presented to the hospital on 05/11/2025 due to multiple falls and inability to care for herself/bathe/perform ADLs. She has been trying to have her friends help her with her wounds but has been becoming more difficult. She endorses intermittent stool incontinence at night (2-3 episodes) as well as increased urinary frequency. In the emergency department, patient's blood pressure was elevated and she was tachycardic. Venous blood gas showed pH of 7.46, CO2 of 31, HCO3 of 22. BMP showed low sodium 135, hypokalemia 3.4, CO2 of 18, anion gap of 14, creatinine of 1.16, glucose of 399, magnesium 1.4, albumin 2.2 and a bilirubin of 1.3. Lactic acid was elevated at 3.1. CBC showed a leukocytosis 16.9 with left shift. Beta hydroxybutyrate was elevated at 9.6. UA showed 500 leukocyte esterase, greater than 100 WBC, many bacteria. Urine and Blood Cxs prelim results with no growth, final results pending. Interval History: 05/12 ON: No overnight issues. This AM: Bob in bed in no obvious distress, endorsing feeling better from the generalized weakness standpoint though still not able to ambulate freely 05/13 ON: No acute events This AM: Laying in bed in no obvious distress and endorsing feeling better from her generalized weakness and pain at her groin and buttocks. Denies any CP, SOB or Dizziness -Cx with no growth: will d'c antibiotics and monitor Case and plan discussed with patient and bedside nurse. All questions answered. Adult diet Regular 24HR INTAKE/OUTPUT: Intake/Output Summary (Last 24 hours) at 05/13/2025 1145 Last data filed at 05/13/2025 0952 Gross per 24 hour Intake 1547.5 ml Output 310 ml Net 1237.5 ml Past Medical History: Medical History[1] LABS: CBC: Recent Labs 05/11/25181005/11/25193605/11/253 WBC 16.9* -- 12.7* RBC 3.87 -- 3.64* HGB 11.6* 11.5 11.1* HCT 35.2 -- 33.1* MCV 91.0 -- 90.9 RDW 13.2 -- 13.0 PLT 336 -- 325 BMP: Recent Labs 05/11/25181005/11/25 2353 NA 135* 138 K 3.4* 3.0* CL 103 108* CO2 18* 21* BUN 21 20 CREATININE 1.16* 0.92 GLUCOSE 399* 176* CALCIUM 8.5* 8.6* ANIONGAP 14* 9 LIVER PROFILE: Recent Labs 05/11/25181005/11/25 2353 AST 16 15 ALT <6 <6 BILITOT 1.3* 1.0 ALKPHOS 77 68 PROT 6.8 6.5 PT/INR: No results for input(s): PROTIME, INR in the last 72 hours. CARDIAC ENZYMES: No results for input(s): TROPONINI in the last 72 hours. Procalcitonin: Lab Results Component Value Date PROCAL 0.49 (H) 05/11/2025 COVID-19 PCR: No results for input(s): COVID19 in the last 72 hours. Objective: Vitals: BP (!) 165/81 (BP Location: Right arm, Patient Position: Lying) Pulse 56 Temp 36.2 C (97.2 F) (Temporal) Resp 16 Ht 5' 6 (1.676 m) Wt 201 lb 4.5 oz (91.3 kg) SpO2 97% BMI 32.49 kg/m Pulse Ox: SpO2 Av.5 % Min: 97 % Max: 98 % Supplemental O2: Physical Exam Vitals and nursing note reviewed. Constitutional: Appearance: Normal appearance. HENT: Head: Normocephalic and atraumatic. Right Ear: External ear normal. Left Ear: External ear normal. Mouth/Throat: Mouth: Mucous membranes are moist. Eyes: Conjunctiva/sclera: Conjunctivae normal. Cardiovascular: Rate and Rhythm: Normal rate. Pulmonary: Effort: Pulmonary effort is normal. No respiratory distress. Musculoskeletal: Cervical back: Neck supple. Comments: See media for wound pictures Neurological: Mental Status: She is alert and oriented to person, place, and time. Psychiatric: Behavior: Behavior normal. Medications: Scheduled PRN Scheduled Meds[2] PRN Meds[3] Continuous Continuous Meds[4] Assessment Acute, acute on chronic, unstable/uncontrolled chronic problems/diagnoses: Sepsis secondary to urinary tract infection/cellulitis: Cx still with no growth; will deescalate Abx as appropriate -d'art Vancomycin 05/12 and Cefepime 05/13 Gluteal and Groin wounds -cont Cefepime -goel drinage to avoid wound contamination. Hypokalemia: will trend and replace as needed Mild DKA: Resolving, LA normal at 1.1 SAÚL: Resolved Hypomagnesemia: Resolved Hypoalbuminemia Stable chronic problems affecting care, new non-acute diagnoses: stage II grade 1 endometrial cancer Monitor for recurrence atrial fibrillation with RVR Metoprolol/Eliquis for rate control and anticoagulation moderate aortic stenosis Recommend outpatient echocardiogram Hypertension Continue metoprolol Dyslipidemia Can consider statin once patient's renal function improves Hypothyroidism Levothyroxine ordered chronic lymphedema Wound care following, apprec recs elevate legs Plan As a result of the above findings & factors, the following mgmt was pursued: - Restart Home meds as appropriate - am labs, replace lytes prn - PT/OT/CM/SW - delirium precautions: increase activity and limit nighttime disturbances - DVT prophylaxis: encourage ambulation and already anticoagulated Advance Directive: DNR-CCA Anticipated Discharge - Date - TBD - Location - Home - Pending the following - Clinical improvement Total time spent (which include face to face and non face to face encounters) : 45 minutes Toxic drug monitoring/narrow therapeutic index drug monitoring : # Drug name : none # Route administered :na # Method of monitoring : na Extended Emergency Contact Information Primary Emergency Contact: Roe Melendrez Mobile Relation: Niece Secondary Emergency Contact: Jose Potter Mobile Relation: Sibling Alber Gil DO Division of Hospitalist Medicine [facility] [1] Past Medical History: Diagnosis Date Anxiety Asthma (HHS/HCC) Atrial fibrillation (HCC) Deficiency of nutrient elements Depression Dry eye Endometrial cancer (HCC) 09/30/2020 Fatigue Gastritis GERD (gastroesophageal reflux disease) Glaucoma Hyperlipidemia Hypertension Hypothyroidism Incontinence Intestinal malabsorption (HHS/HCC) Lymph edema Morbid obesity (CMS/HCC) Obstructive sleep apnea PMB (postmenopausal bleeding) Polycystic ovarian syndrome Psoriasis SOB (shortness of breath) on exertion Thyroglossal duct cyst Type 2 diabetes mellitus without complication (HCC) Urinary tract infection Uterine cancer (HCC) Vitamin D deficiency 05/10/2017 Zinc deficiency 06/21/2018 [2] apixaban, 5 mg, Oral, BID atorvastatin, 40 mg, Oral, Daily brimonidine, 1 drop, Both Eyes, BID chlorhexidine, , Topical, BID cholecalciferol, 50 mcg, Oral, Daily citalopram, 20 mg, Oral, Daily insulin glargine, 16 Units, SubCUTAneous, Nightly insulin lispro, 0-12 Units, SubCUTAneous, TID WC And insulin lispro, 0-12 Units, SubCUTAneous, Nightly Insulin Lispro, 4 Units, SubCUTAneous, TID WC levothyroxine, 175 mcg, Oral, qAM AC metoprolol tartrate, 25 mg, Oral, BID miconazole, , Topical, BID sodium chloride 0.9%, 10 mL, IntraVENous, 2 times per day stomahesive in petrolatum, , Topical, BID therapeutic multivitamin-minerals, 1 tablet, Oral, Daily timolol, 1 drop, Both Eyes, BID [3] PRN medications: acetaminophen OR acetaminophen, chlorhexidine, dextrose, dextrose, glucagon (rDNA), glucose, loperamide, miconazole, naloxone, oxyCODONE OR oxyCODONE, polyethylene glycol (PEG) 3350, prochlorperazine OR prochlorperazine OR prochlorperazine, sodium chloride, sodium chloride 0.9%, stomahesive in petrolatum [4] Vancomycin therapy has been discontinued by Dr. Gil on 05/12/25. Thank you for the consult. Pharmacy signing off for vancomycin dosing. Emili Lara PharmD Date: 05/12/25 Time: 1:50 PM Hospitalist Progress Note 05/12/2025 Subjective: Admit Date: 05/11/2025 PCP: Christy Rizzo MD Room#: N41[facility] A BRIEF HOSPITAL COURSE: 70-yo F, PMHx for stage II grade 1 endometrial cancer who was treated with robotic hysterectomy, lymph node sampling and adjunctive radiotherapy, more recently she was found to have some lung nodules. Her other medical history includes atrial fibrillation with RVR, difficult to control diabetes (she admits that she does not take her Lantus as prescribed as she feels that it is too much normally), moderate aortic stenosis, hypertension, dyslipidemia, hypothyroidism, chronic lymphedema, she also has a tendency for malabsorption due to history of gastric bypass RADHA, GERD, asthma, diastolic heart failure, who presented to the hospital on 05/11/2025 due to multiple falls and inability to care for herself/bathe/perform ADLs. She has been trying to have her friends help her with her wounds but has been becoming more difficult. She endorses intermittent stool incontinence at night (2-3 episodes) as well as increased urinary frequency. In the emergency department, patient's blood pressure was elevated and she was tachycardic. Venous blood gas showed pH of 7.46, CO2 of 31, HCO3 of 22. BMP showed low sodium 135, hypokalemia 3.4, CO2 of 18, anion gap of 14, creatinine of 1.16, glucose of 399, magnesium 1.4, albumin 2.2 and a bilirubin of 1.3. Lactic acid was elevated at 3.1. CBC showed a leukocytosis 16.9 with left shift. Beta hydroxybutyrate was elevated at 9.6. UA showed 500 leukocyte esterase, greater than 100 WBC, many bacteria. Urine and Blood Cxs prelim results with no growth, final results pending. Interval History: 05/12 ON: No overnight issues. This AM: Bob in bed in no obvious distress, endorsing feeling better from the generalized weakness standpoint though still not able to ambulate freely, Case and plan discussed with patient and bedside nurse. All questions answered. Adult diet Regular 24HR INTAKE/OUTPUT: Intake/Output Summary (Last 24 hours) at 05/12/2025 0728 Last data filed at 05/12/2025 0647 Gross per 24 hour Intake 2298.75 ml Output -- Net 2298.75 ml Past Medical History: Medical History[1] LABS: CBC: Recent Labs 05/11/25181005/11/25 1937 05/11/25 2353 WBC 16.9* -- 12.7* RBC 3.87 -- 3.64* HGB 11.6* 11.5 11.1* HCT 35.2 -- 33.1* MCV 91.0 -- 90.9 RDW 13.2 -- 13.0 PLT 336 -- 325 BMP: Recent Labs 05/11/25181005/11/25 2353 NA 135* 138 K 3.4* 3.0* CL 103 108* CO2 18* 21* BUN 21 20 CREATININE 1.16* 0.92 GLUCOSE 399* 176* CALCIUM 8.5* 8.6* ANIONGAP 14* 9 LIVER PROFILE: Recent Labs 05/11/25181005/11/25 2353 AST 16 15 ALT <6 <6 BILITOT 1.3* 1.0 ALKPHOS 77 68 PROT 6.8 6.5 PT/INR: No results for input(s): PROTIME, INR in the last 72 hours. CARDIAC ENZYMES: No results for input(s): TROPONINI in the last 72 hours. Procalcitonin: Lab Results Component Value Date PROCAL 0.49 (H) 05/11/2025 COVID-19 PCR: No results for input(s): COVID19 in the last 72 hours. Objective: Vitals: BP 145/76 (BP Location: Left arm, Patient Position: Lying) Pulse 71 Temp 36.2 C (97.2 F) (Temporal) Resp 16 Ht 5' 6 (1.676 m) Wt 216 lb (98 kg) SpO2 99% BMI 34.86 kg/m Pulse Ox: SpO2 Av % Min: 98 % Max: 100 % Supplemental O2: Physical Exam Vitals and nursing note reviewed. Constitutional: Appearance: Normal appearance. HENT: Head: Normocephalic and atraumatic. Right Ear: External ear normal. Left Ear: External ear normal. Mouth/Throat: Mouth: Mucous membranes are moist. Eyes: Conjunctiva/sclera: Conjunctivae normal. Cardiovascular: Rate and Rhythm: Normal rate. Pulmonary: Effort: Pulmonary effort is normal. No respiratory distress. Musculoskeletal: Cervical back: Neck supple. Comments: See media for wound pictures Neurological: Mental Status: She is alert and oriented to person, place, and time. Psychiatric: Behavior: Behavior normal. Medications: Scheduled PRN Scheduled Meds[2] PRN Meds[3] Continuous Continuous Meds[4] Assessment Acute, acute on chronic, unstable/uncontrolled chronic problems/diagnoses: Sepsis secondary to urinary tract infection/cellulitis: Cx still with no growth; will deescalate Abx as appropriate -d'art Vancomycin 05/12 Gluteal and Groin wounds -cont Cefepime -goel drinage to avoid wound contamination. Hypokalemia: will trend and replace as needed Mild DKA: Resolving, LA normal at 1.1 SAÚL: Resolved Hypomagnesemia: Resolved Hypoalbuminemia Stable chronic problems affecting care, new non-acute diagnoses: stage II grade 1 endometrial cancer Monitor for recurrence atrial fibrillation with RVR Metoprolol/Eliquis for rate control and anticoagulation moderate aortic stenosis Recommend outpatient echocardiogram Hypertension Continue metoprolol Dyslipidemia Can consider statin once patient's renal function improves Hypothyroidism Levothyroxine ordered chronic lymphedema Wound care consulted, elevate legs Plan As a result of the above findings & factors, the following mgmt was pursued: - Restart Home meds as appropriate - am labs, replace lytes prn - PT/OT/CM/SW - delirium precautions: increase activity and limit nighttime disturbances - DVT prophylaxis: encourage ambulation and already anticoagulated Advance Directive: DNR-CCA Anticipated Discharge - Date - TBD - Location - Home - Pending the following - Clinical improvement Total time spent (which include face to face and non face to face encounters) : 45 minutes Toxic drug monitoring/narrow therapeutic index drug monitoring : # Drug name : Vanco/Cefepime # Route administered : IV # Method of monitoring : CBC, BMP Extended Emergency Contact Information Primary Emergency Contact: Roe Melendrez Mobile Relation: Niece Secondary Emergency Contact: Jose Potter Mobile Relation: Sibling Alber DO [facility] Division of Hospitalist Medicine [facility] [1] Past Medical History: Diagnosis Date Anxiety Asthma (HHS/HCC) Atrial fibrillation (HCC) Deficiency of nutrient elements Depression Dry eye Endometrial cancer (HCC) 09/30/2020 Fatigue Gastritis GERD (gastroesophageal reflux disease) Glaucoma Hyperlipidemia Hypertension Hypothyroidism Incontinence Intestinal malabsorption (HHS/HCC) Lymph edema Morbid obesity (CMS/HCC) Obstructive sleep apnea PMB (postmenopausal bleeding) Polycystic ovarian syndrome Psoriasis SOB (shortness of breath) on exertion Thyroglossal duct cyst Type 2 diabetes mellitus without complication (HCC) Urinary tract infection Uterine cancer (HCC) Vitamin D deficiency 05/10/2017 Zinc deficiency 06/21/2018 [2] apixaban, 5 mg, Oral, BID atorvastatin, 40 mg, Oral, Daily brimonidine, 1 drop, Both Eyes, BID cefepime, 2,000 mg, IntraVENous, q8h cholecalciferol, 50 mcg, Oral, Daily citalopram, 20 mg, Oral, Daily insulin glargine, 16 Units, SubCUTAneous, Nightly insulin lispro, 0-12 Units, SubCUTAneous, TID WC And insulin lispro, 0-12 Units, SubCUTAneous, Nightly Insulin Lispro, 8 Units, SubCUTAneous, TID WC levothyroxine, 175 mcg, Oral, qAM AC metoprolol tartrate, 25 mg, Oral, BID potassium chloride, 40 mEq, IntraVENous, Once sodium chloride 0.9%, 10 mL, IntraVENous, 2 times per day therapeutic multivitamin-minerals, 1 tablet, Oral, Daily timolol, 1 drop, Both Eyes, BID vancomycin, 1,500 mg, IntraVENous, q24h [3] PRN medications: acetaminophen OR acetaminophen, dextrose, dextrose, dextrose, dextrose, glucagon (rDNA), glucagon (rDNA), glucose, glucose, naloxone, oxyCODONE OR oxyCODONE, polyethylene glycol (PEG) 3350, prochlorperazine OR prochlorperazine OR prochlorperazine, sodium chloride, sodium chloride 0.9%, stomahesive in petrolatum [4] dextrose 5 % and sodium chloride 0.45 %, 75 mL/hr sodium chloride, 75 mL/hr, Last Rate: 75 mL/hr (05/12/25 0637) documented in this encounter [facility] 05-19-2025 Nurse Note Wound Care consulted for Pressure Injury Prevention. Pt's Can score= 14 on 05/18 Pt in bed for assessment, turned for posterior assessment with minimal assistance. Pt able to BUE and LLE off bed independently. RLE weak. Pt's pressure points assessed: Pt's Heels, Back, Elbows, Occiput, and Ears are all blanching and intact. Pt denies pain to areas indicated above. Pt with Goel Catheter in place and securement device to left thigh. For Abdominal fold/Groin, Bilateral medial thighs, Sacrum extending to Bilateral Buttock wound assessments and treatment plan, please see Wound/Ostomy MARKETING ENGINEER progress notes and treatment plans. Prevention Measures in place, including: Envella Bed, Orting sheet with pillows/wedges, (pt turned to right side with wedge pillow), Bilateral foam heel protectors (pt declined at this time but agreeable to leave at bedside for future use), Heels elevated off bed on pillows, Bilateral Elbows (off loaded on pillow), Sacral foam ( please follow Wound Ostomy/MARKETING ENGINEER treatment plan), ET mix and Zinc/Moisture Barrier ointment, Moisture absorbant pad, Waffle chair cushion to be obtained if pt is out of bed and in the chair, Bed Alarm On. Instructed pt on pressure injury prevention and importance of turning/postioning every 2 hrs while in bed and every 15 min while sitting in chair. Pt verbalized understanding, however recommend reinforcement and assistance from nursing staff. Skin Care precaution order set in place. Dietitian consult in place. PT/OT consult in place. D/W nursing staff skin assessment, preventions, and interventions implemented. Will continue to follow pt. Please Voicera for any questions or concerns. JAVIER Humphries, RN Pt having discomfort/pain in her perineum area and buttocks from her excoriated wounds. She is incontinent of bowel and bladder with very limited mobility. Her wounds are hard to keep clean due to her incontinence and location of wounds. Dr. Gil notified and Goel order placed. documented in this encounter [facility] 05-18-2025 Note [facility] via [facility] per TCC request. Await review and response regarding ability to accept. TCC notified. [facility] 05-18-2025 Note Madan Lopes unable to accept. Referral placed to [facility]. [facility] 05-18-2025 Note Ref[facility] Madan Lopes via [facility] per TCC request. Await review and response regarding ability to accept. TCC notified. [facility] 05-16-2025 Consult note Associated Order (s): IP CONSULT TO CARDIOLOGY [facility] Electrophysiology Consult Note Reason for Consult/Chief Complaint: Heart murmur History of Present Illness: Dameon Potter is a 70 y.o. female presents to the hospital with issues of wound care and activities of daily living. She has a past history of atrial fibrillation now in sinus rhythm. The arrhythmia was thought to be new onset in October of this year she was started on apixaban and metoprolol. Reviewing those notes and asking her today she really was not aware of the atrial fibrillation in terms of palpitation lightheadedness presyncope or syncope. She presents in sinus rhythm to the hospital for this admission. Echocardiography reviewed from last admission in October demonstrated normal LV function with moderate aortic stenosis. Past Medical History: Medical History[1] Past Surgical History: Surgical History[2] Family History: Family History[3] Social History: Social History[4] Medications: Scheduled Meds[5] Allergies: Bimatoprost, Doxycycline, Erythromycin, Levaquin [levofloxacin], Macrobid [nitrofurantoin], Penicillins, Levofloxacin in d5w, Macrolides and ketolides, Molds & smuts, Nitrofurantoin monohyd macro, and Other Reviewed Review of Systems: Review of Systems Physical Examination: Vitals: Blood pressure 154/73, pulse 55, temperature 36.8 C (98.3 F), temperature source Temporal, resp. rate 16, height 5' 6 (1.676 m), weight 206 lb 2.1 oz (93.5 kg), SpO2 98%. @[email or web address]@ @[id number]@ Physical Exam Vitals reviewed. Constitutional: Appearance: Normal appearance. HENT: Head: Normocephalic. Right Ear: External ear normal. Left Ear: External ear normal. Nose: Nose normal. Mouth/Throat: Mouth: Mucous membranes are moist. Eyes: Pupils: Pupils are equal, round, and reactive to light. Cardiovascular: Rate and Rhythm: Normal rate. Heart sounds: Murmur heard. Pulmonary: Effort: No respiratory distress. Musculoskeletal: Right lower leg: Edema present. Left lower leg: Edema present. Skin: General: Skin is warm and dry. Coloration: Skin is not jaundiced. Neurological: General: No focal deficit present. Mental Status: She is alert. Motor: No weakness. Psychiatric: Mood and Affect: Mood normal. Behavior: Behavior normal. Thought Content: Thought content normal. Judgment: Judgment normal. Laboratory Tests: @[id number](WBC:5,HGB:5,HCT:5,M CV:5,PLT:5)@ Lab Results Component Value Date GLUCOSE 98 05/16/2025 CALCIUM 8.2 (L) 05/16/2025 NA 137 05/16/2025 K 3.8 05/16/2025 CO2 21 (L) 05/16/2025 CL 110 (H) 05/16/2025 BUN 17 05/16/2025 CREATININE 0.70 05/16/2025 Lab Results Component Value Date HGBA1C 7.3 (H) 05/11/2025 Lab Results Component Value Date TSH 3.03 11/02/2024 Lab Results Component Value Date CHOL 142 04/29/2024 CHOL 151 02/18/2024 CHOL 149 04/06/2021 Lab Results Component Value Date HDL 44 04/29/2024 HDL 49 02/18/2024 HDL 50 06/22/2021 HDL 50 06/22/2021 Lab Results Component Value Date LDLCALC 71 04/29/2024 LDLCALC 76 02/18/2024 LDLCALC 77 06/22/2021 Lab Results Component Value Date TRIG 137 04/29/2024 TRIG 129 02/18/2024 TRIG 414 06/22/2021 No results found for: CHOLHDL No components found for: NTPROBNP Lab Results Component Value Date CKTOTAL 47 05/11/2025 No components found for: LVEF, LVEFMODE Radiology: CXR: personally reviewed: Cardiac Tests: Sinus bradycardia seen on telemetry. ECG demonstrates sinus bradycardia as well Assessment/Plan Atrial fibrillation: Spontaneously back to sinus rhythm and sinus bradycardia. Would maintain metoprolol tartrate 25 mg twice daily and apixaban 5 mg twice daily. Would not recommend antiarrhythmic drug. Hypertension: Maintains losartan 50 mg daily. Aortic stenosis: Moderate, normal LV function, asymptomatic with this, will need serial echocardiography over the years as an outpatient. Ricky Jaimes MD DATE of SERVICE: 05/16/2025 [1] Past Medical History: Diagnosis Date Anxiety Asthma (HHS/HCC) Atrial fibrillation (HCC) Deficiency of nutrient elements Depression Dry eye Endometrial cancer (HCC) 09/30/2020 Fatigue Gastritis GERD (gastroesophageal reflux disease) Glaucoma Hyperlipidemia Hypertension Hypothyroidism Incontinence Intestinal malabsorption (HHS/HCC) Lymph edema Morbid obesity (CMS/HCC) Obstructive sleep apnea PMB (postmenopausal bleeding) Polycystic ovarian syndrome Psoriasis SOB (shortness of breath) on exertion Thyroglossal duct cyst Type 2 diabetes mellitus without complication (HCC) Urinary tract infection Uterine cancer (HCC) Vitamin D deficiency 05/10/2017 Zinc deficiency 06/21/2018 [2] Past Surgical History: Procedure Laterality Date CATARACT EXTRACTION Bilateral CHOLECYSTECTOMY 01/29/2018 w/ LRYGB and Umbilical Hernia repair - [facility] DILATION AND CURETTAGE OF UTERUS 09/03/2020 with hysteroscopy GASTRIC BYPASS 01/29/2018 LRYGB w/ Lap Aggie and Umbilical Hernia repair, [facility]akis GASTRIC BYPASS HYSTERECTOMY 09/30/2020 [facility]/BSO; Dr. Cuauhtemoc Stubbs MOUTH SURGERY gum removal to expose wisdom teeth THYROGLOSSAL DUCT EXCISION 2000 [facility]- Dr. Vin Keating THYROIDECTOMY thyroid cyst UMBILICAL HERNIA REPAIR 01/29/2018 w/ LRYGB and Lap Aggie - [facility]ografakis UPPER GASTROINTESTINAL ENDOSCOPY 03/20/2017 pre op, [facility] WISDOM TOOTH EXTRACTION 2012 [facility] [3] Family History Problem Relation Name Age of Onset Obesity Mother dementia Diabetes Mother dementia High Blood Pressure Mother dementia Heart disease Mother dementia Stroke Father High Blood Pressure Father Diabetes Father Bladder Cancer Father Obesity Father High Blood Pressure Brother Heart attack Paternal Grandmother Stroke Paternal Grandfather Diabetes Paternal Grandfather Colon cancer Neg Hx [4] Social History Tobacco Use Smoking status: Never Smokeless tobacco: Never Substance Use Topics Alcohol use: No Drug use: No [5] apixaban, 5 mg, Oral, BID atorvastatin, 40 mg, Oral, Daily brimonidine, 1 drop, Both Eyes, BID chlorhexidine, , Topical, BID cholecalciferol, 50 mcg, Oral, Daily citalopram, 20 mg, Oral, Daily insulin glargine, 16 Units, SubCUTAneous, Nightly insulin lispro, 0-12 Units, SubCUTAneous, TID WC And insulin lispro, 0-12 Units, SubCUTAneous, Nightly Insulin Lispro, 4 Units, SubCUTAneous, TID WC levothyroxine, 175 mcg, Oral, qAM AC losartan, 50 mg, Oral, Daily metoprolol tartrate, 25 mg, Oral, BID miconazole, , Topical, BID sodium chloride 0.9%, 10 mL, IntraVENous, 2 times per day stomahesive in petrolatum, , Topical, BID therapeutic multivitamin-minerals, 1 tablet, Oral, Daily timolol, 1 drop, Both Eyes, BID Associated Order(s): INPATIENT CONSULT TO WOUND CARE PROVIDERS Images from the original note were not included. [facility] CONSULT Note Dameon Potter AGE: 70 y.o. GENDER: female : 1955 Subjective: HISTORY of PRESENT ILLNESS HPI Dameon Potter is a 70 y.o. female who presents for a wound consult. HPI: Per chart review, 70-year-old female with past medical history of stage II grade 1 endometrial cancer who was treated with robotic hysterectomy, lymph node sampling and adjunctive radiotherapy, more recently she was found to have some lung nodules. Her other medical history includes atrial fibrillation with RVR, difficult to control diabetes (she admits that she does not take her Lantus as prescribed as she feels that it is too much normally), moderate aortic stenosis, hypertension, dyslipidemia, hypothyroidism, chronic lymphedema, she also has a tendency for malabsorption due to history of gastric bypass RADHA, GERD, asthma, diastolic heart failure, who presented to the hospital on 05/11/2025 due to multiple falls and inability to care for herself/bathe/perform ADLs. She has been trying to have her friends help her with her wounds but has been becoming more difficult. She endorses intermittent stool incontinence at night (2-3 episodes) as well as increased urinary frequency. Wound Care consulted for Pressure Injury; Sacrum. Patient resting in bed at time of visit. Patient updated on plan of care. Patient denies needs. Patient incontinent of stool and urine. PAST MEDICAL HISTORY Medical History[1] PAST SURGICAL HISTORY Surgical History[2] FAMILY HISTORY Family History[3] SOCIAL HISTORY Social History[4] ALLERGIES Allergies[5] MEDICATIONS Medications Ordered Prior to Encounter[6] REVIEW OF SYSTEMS Pertinent items are noted in HPI. Objective: BP 145/71 (BP Location: Left arm, Patient Position: Lying) Pulse 61 Temp 36.4 C (97.5 F) (Temporal) Resp 16 Ht 5' 6 (1.676 m) Wt 216 lb (98 kg) SpO2 98% BMI 34.86 kg/m PHYSICAL EXAM General appearance: in no apparent distress, well developed and well nourished, non-toxic, in no respiratory distress and acyanotic, and alert Skin: warm and dry Pulmonary: Normal effort, no respiratory distress, no cyanosis Abdominal fold/Groin: Scattered superficial wounds noted. [place]/red tissue. Moisture/excoriation noted. Erythema present. 05/12/25 Bilateral medial thighs: Erythema present. Excoriation noted. Tenderness on palpation. Edema noted. 05/12/25 Sacrum extending to Bilateral Buttock: Full thickness wounds noted to be scattered with intact skin bridges. Purple non-blanchable tissue, slough, and pink tissue to wound bed. Areas of scabbing noted. Small amount of serosang drainage present. Susan-wound intact and fragile. Odor noted on exam. 05/12/25 LABS CBC: Lab Results Component Value Date WBC 12.7 (H) 05/11/2025 HGB 11.1 (L) 05/11/2025 HGB 11.5 05/11/2025 HCT 33.1 (L) 05/11/2025 MCV 90.9 05/11/2025 PLT 325 05/11/2025 BMP: Lab Results Component Value Date NA 138 05/11/2025 K 3.0 (L) 05/11/2025 CL 108 (H) 05/11/2025 CO2 21 (L) 05/11/2025 PHOS 2.1 (L) 05/11/2025 BUN 20 05/11/2025 CREATININE 0.92 05/11/2025 PT/INR: No results found for: PROTIME, INR Prealbumin: No results found for: PREALBUMIN Albumin:No components found for: LABALBU Sed Rate:No results found for: SEDRATE Micro: No components found for: BC Assessment/Plan: Nursing staff to perform dressing change: Abdominal Fold/Groin: Fungal Dermatitis -Cleanse with Hibiclens soap and water. Apply miconazole powder. Leave JAVA DEVELOPMENT MANAGER. Apply BID and PRN Bilateral medial thighs: Fungal Dermatitis -Cleanse with Hibiclens soap and water. Apply miconazole powder. Leave JAVA DEVELOPMENT MANAGER. 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 Apply miconazole powder to wound bed, followed by ET mix. Leave JAVA DEVELOPMENT MANAGER. Apply BID and PRN -waffle chair cushion -Q2hr/PRN turns -glide sheets for T&R -continence checks Q1-2 Hrs/PRN - Envella bed with pillow offloading Nutritional support Wound Care to follow Recommend to follow up at [facility] after hospital discharge. Any questions or concerns please secure chat [facility] wound/ostomy. Thank you for the consult! I personally obtained the barragan and critical portions of the history and physical exam. I reviewed the labs, imaging studies, and electronic medical record. I reviewed the chart documentation and discussed the patient with treatment team members. I have edited the note to reflect my clinical findings and my assessment and plan. Please note, the time of this note does not reflect the time I saw this patient today, but the time of this documentaton. Portions of this note including HPI, ROS, impression/plan, and examination may have been copied forward from admission to today as to provide important historical information essential in contributing to medical decision making. Documentation has been reviewed and edited as necessary to support clinical decision making for today's visit and to reflect my own independent evaluation of this patient. Decision making for today's visit and to reflect my own independent evaluation of this patient. [1] Past Medical History: Diagnosis Date Anxiety Asthma (HHS/HCC) Atrial fibrillation (HCC) Deficiency of nutrient elements Depression Dry eye Endometrial cancer (HCC) 09/30/2020 Fatigue Gastritis GERD (gastroesophageal reflux disease) Glaucoma Hyperlipidemia Hypertension Hypothyroidism Incontinence Intestinal malabsorption (HHS/HCC) Lymph edema Morbid obesity (CMS/HCC) Obstructive sleep apnea PMB (postmenopausal bleeding) Polycystic ovarian syndrome Psoriasis SOB (shortness of breath) on exertion Thyroglossal duct cyst Type 2 diabetes mellitus without complication (HCC) Urinary tract infection Uterine cancer (HCC) Vitamin D deficiency 05/10/2017 Zinc deficiency 06/21/2018 [2] Past Surgical History: Procedure Laterality Date CATARACT EXTRACTION Bilateral CHOLECYSTECTOMY 01/29/2018 w/ LRYGB and Umbilical Hernia repair - [facility] DILATION AND CURETTAGE OF UTERUS 09/03/2020 with hysteroscopy GASTRIC BYPASS 01/29/2018 LRYGB w/ Lap Aggie and Umbilical Hernia repair, [facility] GASTRIC BYPASS HYSTERECTOMY 09/30/2020 [facility]/BSO; Dr. Cuauhtemoc Stubbs MOUTH SURGERY 1979' gum removal to expose wisdom teeth THYROGLOSSAL DUCT EXCISION 2000 [facility]- Dr. Vin Keating THYROIDECTOMY thyroid cyst UMBILICAL HERNIA REPAIR 01/29/2018 w/ LRYGB and Lap Aggie - [facility] UPPER GASTROINTESTINAL ENDOSCOPY 03/20/2017 pre op, [facility] WISDOM TOOTH EXTRACTION 2013 [facility] [3] Family History Problem Relation Name Age of Onset Obesity Mother dementia Diabetes Mother dementia High Blood Pressure Mother dementia Heart disease Mother dementia Stroke Father High Blood Pressure Father Diabetes Father Bladder Cancer Father Obesity Father High Blood Pressure Brother Heart attack Paternal Grandmother Stroke Paternal Grandfather Diabetes Paternal Grandfather Colon cancer Neg Hx [4] Social History Tobacco Use Smoking status: Never Smokeless tobacco: Never Substance Use Topics Alcohol use: No Drug use: No [5] Allergies Allergen Reactions Bimatoprost Other Blurred vision Doxycycline Hives Erythromycin Hives Levaquin [Levofloxacin] Hives Macrobid [Nitrofurantoin] Hives Penicillins Hives Levofloxacin In D5w Swelling oral Macrolides And Ketolides Hives 1980 Molds & Smuts Itching Mold allergy Nitrofurantoin Monohyd Macro Itching Other Itching [6] No current facility-administered medications on file prior to encounter. Current Outpatient Medications on File Prior to Encounter Medication Sig Dispense Refill albuterol 108 (90 Base) MCG/ACT inhaler Inhale 2 puffs every 6 hours as needed. (Patient not taking: Reported on 12/22/2024) apixaban (Eliquis) 5 MG tablet Take 1 tablet (5 mg) by mouth 2 times daily. 60 tablet 0 atorvastatin (Lipitor) 40 MG tablet Take by mouth daily. BD Insulin Syringe U/F 30G X 1/2 0.5 ML misc 2 times daily with insulin 200 each 3 brimonidine (AlphaGAN P) 0.1 % ophthalmic solution Administer 1 drop into both eyes 3 times a day. cholecalciferol (Vitamin D-3) 25 MCG (1000 UT) capsule Take 50 mcg by mouth daily. citalopram (CeleXA) 20 MG tablet Take 20 mg by mouth daily. Continuous Glucose Sensor (FreeStyle Satya 3 Sensor) misc 1 Device every 14 (fourteen) days. 7 each 3 EPINEPHRINE HCL, ANAPHYLAXIS, IM Inject into the shoulder, thigh, or buttocks. (Patient not taking: Reported on 12/22/2024) FREESTYLE LITE test strip 1 each by Other route 4 times daily. As directed (Patient not taking: Reported on 12/22/2024) 400 each 3 glucose 4 g chewable tablet Chew 16 g if needed for low blood sugar. (Patient not taking: Reported on 12/22/2024) insulin glargine (Lantus) 100 UNIT/ML injection Inject 24 Units under the skin Nightly. (Patient not taking: Reported on 12/22/2024) 10 mL 12 Insulin Lispro (Humalog) 100 UNIT/ML solution injection Inject 8 Units under the skin 3 times daily (with meals). 10 mL 12 insulin pen needle 32G x 4 mm misc Use as instructed 2 times daily 200 each 3 levothyroxine (Synthroid, Levoxyl) 175 MCG tablet Take 1 tablet (175 mcg) by mouth every morning (before breakfast). 90 tablet 3 melatonin 5 MG tablet Take 5 mg by mouth Nightly. (Patient not taking: Reported on 12/22/2024) metFORMIN, OSM, (Fortamet) 500 MG 24 hr tablet Take 500 mg by mouth daily. Do not crush, chew, or split. (Patient not taking: Reported on 12/22/2024) metoprolol tartrate (Lopressor) 50 MG tablet Take 1 tablet (50 mg) by mouth 2 times daily. (Patient taking differently: Take 25 mg by mouth 2 times daily.) 60 tablet 11 Multiple Vitamin (multivitamin) tablet Take 1 tablet by mouth daily. timolol (Timoptic) 0.5 % ophthalmic solution Administer 1 drop into both eyes in the morning and 1 drop in the evening. Cosigned by Carlitos Montano DO at 05/18/2025 12:55 PM EDT Images from the original note were not included. Pharmacy Managed Vancomycin Dosing Service Consult Note Consult Date: 05/12/25 Patient Name: Dameon Potter Allergies: Bimatoprost, Doxycycline, Erythromycin, Levaquin [levofloxacin], Macrobid [nitrofurantoin], Penicillins, Levofloxacin in d5w, Macrolides and ketolides, Molds & smuts, Nitrofurantoin monohyd macro, and Other Age: 70 y.o. Sex: female Estimated body mass index is 34.86 kg/m as calculated from the following: Height as of this encounter: 1.676 m (5' 6). Weight as of this encounter: 98 kg (216 lb). DW: 98 kg Lab Results Component Value Date CREATININE 1.16 (H) 05/11/2025 CREATININE 0.85 11/05/2024 BUN 21 05/11/2025 BUN 27 (H) 11/05/2024 WBC 16.9 (H) 05/11/2025 WBC 6.0 12/22/2024 Calculated CrCl: 69 mL/min (Cockcroft-Gault) Consulted By: Jennifer Taylor Infectious Diagnosis: SSTI / UTI (AUC Goal 400-600 mg/L*hr) Random Vancomycin Level Due: 05/13/25 Antimicrobials: Patient recently received an antibiotic (last 12 hours) Date/Time Action Medication Dose Rate 05/11/251936 New Bag cefTRIAXone (Rocephin) 1,000 mg in sodium chloride 0.9 % 50 mL IVPB Mini-Bag Plus 1,000 mg 100 mL/hr Assessment/Plan: Doses, serum creatinine, and vancomycin levels interfaced automatically to [employer] and data has been analyzed and interpreted. Start Vancomycin 1,500 mg every 24 hours based on patient age, weight, renal function, and infectious diagnosis (15.3 mg/kg). Predicted AUC = 565 mg/L*hr (goal 400-600 mg/L*hr) PAUC = 87% (probability that AUC is >400 mg/L*hr) Pconc = 14% (probability that Ctrough is above 20 mcg/mL (toxicity)) Will assess random level on 05/13/25 and adjust as appropriate. Trend serum creatinine. Orders placed. Thank you for this consult. Please secure text or call with questions. DATE: 05/12/25 TIME: 12:10 AM Nakul Anglin RPh Clinical Pharmacist Available via Secure Chat documented in this encounter [facility] 05-11-2025 Note [facility] 05-11-2025 History and physical note Images from the original note were not included. Attending History and Physical Admit Date: 05/11/2025 PCP: Christy Rizzo MD CHIEF COMPLAINT: Failure to thrive Reason for Admission: Sepsis History Obtained From: patient HISTORY OF PRESENT ILLNESS: Patient is a 70-year-old female with past medical history of stage II grade 1 endometrial cancer who was treated with robotic hysterectomy, lymph node sampling and adjunctive radiotherapy, more recently she was found to have some lung nodules. Her other medical history includes atrial fibrillation with RVR, difficult to control diabetes (she admits that she does not take her Lantus as prescribed as she feels that it is too much normally), moderate aortic stenosis, hypertension, dyslipidemia, hypothyroidism, chronic lymphedema, she also has a tendency for malabsorption due to history of gastric bypass RADHA, GERD, asthma, diastolic heart failure, who presented to the hospital on 05/11/2025 due to multiple falls and inability to care for herself/bathe/perform ADLs. She has been trying to have her friends help her with her wounds but has been becoming more difficult. She endorses intermittent stool incontinence at night (2-3 episodes) as well as increased urinary frequency. In the emergency department, patient's blood pressure was elevated and she was tachycardic. Venous blood gas showed pH of 7.46, CO2 of 31, HCO3 of 22. BMP showed low sodium 135, hypokalemia 3.4, CO2 of 18, anion gap of 14, creatinine of 1.16, glucose of 399, magnesium 1.4, albumin 2.2 and a bilirubin of 1.3. Lactic acid was elevated at 3.1. CBC showed a leukocytosis 16.9 with left shift. Beta hydroxybutyrate was elevated at 9.6. UA showed 500 leukocyte esterase, greater than 100 WBC, many bacteria. Patient will be admitted for mild DKA, sepsis (tachycardia, leukocytosis, source) secondary to urinary tract infection and cellulitis. SEP-1 CORE MEASURE DATA SIRS Criteria Sepsis Criteria Severe Sepsis Criteria Septic Shock Criteria Must meet 2: [] Temperature > 100.4 F (38 C) or < 96.8 F (36 C) [x] HR > 90 [] RR > 20 [x] WBC > 12 or < 4 or 10% bands Must be confirmed or suspected to move forward with diagnosis of sepsis. Must select at least one: [x] Bacterial Infection Confirmed or Suspected. [] Viral Infection Confirmed or Suspected. [] Fungal Infection Confirmed or Suspected. [] No infection present. Patient does not meet criteria for Sepsis. Must meet 1: [x] Lactate > 2 or [] Signs of Organ Dysfunction: - SBP < 90 or MAP < 65 - Altered mental status - Creatinine > 2 or increased from baseline - Urine Output < 0.5 ml/kg/hr - Bilirubin > 2 - INR > 1.5 - Platelets < 100,000 - Acute Respiratory Failure as evidenced by new need for NIPPV or mechanical ventilation [] No criteria met for Severe Sepsis. Must meet 1: [] Lactate = or > 4 or [] SBP < 90 or MAP < 65 for at least two readings in the first hour after fluid bolus administration [x] No criteria met for Septic Shock. No data found. Recent Labs 05/11/25 1811 WBC 16.9* LACTATE 3.1* CREATININE 1.16* BILITOT 1.3* PLT 336 Sepsis Identified at 1811 hours. Fluid Resuscitation Rational: Due to heart failure, ordered less than 30cc/kg actual body weight. Actual fluid amount given: 1000 mL Infection Source: Urinary System + skin and soft tissue Reassessment Exam: Not applicable. Patient does not have Septic Shock. Jennifer Taylor, Past Medical History: Medical History[1] Past Surgical History: Surgical History[2] Social History: Social History Socioeconomic History Marital status: Single Spouse name: Not on file Number of children: Not on file Years of education: Not on file Highest education level: Not on file Occupational History Not on file Tobacco Use Smoking status: Never Smokeless tobacco: Never Substance and Sexual Activity Alcohol use: No Drug use: No Sexual activity: Not on file Other Topics Concern Not on file Social History Narrative Not on file Social Drivers of Health Financial Resource Strain: Not on file Food Insecurity: Not on file Transportation Needs: Unmet Transportation Needs (11/02/2024) PRAPARE - Transportation Lack of Transportation (Medical): Yes Lack of Transportation (Non-Medical): Yes Physical Activity: Not on file Stress: Not on file Social Connections: Not on file Intimate Partner Violence: Not At Risk (11/02/2024) Humiliation, Afraid, Rape, and Kick questionnaire Fear of Current or Ex-Partner: No Emotionally Abused: No Physically Abused: No Sexually Abused: No Housing Stability: Low Risk (11/05/2024) Housing Stability Vital Sign Unable to Pay for Housing in the Last Year: No Number of Times Moved in the Last Year: 0 Homeless in the Last Year: No Recent Concern: Housing Stability - High Risk (11/02/2024) Housing Stability Vital Sign Unable to Pay for Housing in the Last Year: Yes Number of Times Moved in the Last Year: Not on file Homeless in the Last Year: Yes Family History: Family History[3] Medications Prior to Admission: Current Medications[4] Medications Reconciliation: Medications were reviewed in chart but unable to verify accurate with patient Allergies: Allergies[5] REVIEW OF SYSTEMS: 10 point ROS obtained, as per HPI, otherwise NEG Vitals: BP (!) 143/74 (BP Location: Left arm, Patient Position: Lying) Pulse 74 Temp 36.5 C (97.7 F) (Temporal) Resp 17 Ht 5' 6 (1.676 m) Wt 216 lb (98 kg) SpO2 98% BMI 34.86 kg/m BMI Classification: Obese (BMI 30.0-39.9) Pulse Ox: SpO2 Av % Min: 98 % Max: 100 % Supplemental O2: PHYSICAL EXAM: Physical Exam Constitutional: Appearance: She is obese. HENT: Head: Normocephalic and atraumatic. Eyes: Extraocular Movements: Extraocular movements intact. Pupils: Pupils are equal, round, and reactive to light. Cardiovascular: Rate and Rhythm: Normal rate and regular rhythm. Heart sounds: Murmur heard. Pulmonary: Effort: Pulmonary effort is normal. No respiratory distress. Breath sounds: Normal breath sounds. No wheezing. Abdominal: General: Bowel sounds are normal. There is distension. Tenderness: There is no abdominal tenderness. Comments: Hernia present, reducible Musculoskeletal: General: Swelling present. No deformity. Skin: Comments: See images Neurological: General: No focal deficit present. Mental Status: She is alert and oriented to person, place, and time. Psychiatric: Behavior: Behavior normal. DATA: CBC: Recent Labs 05/11/25181005/11/251936 WBC 16.9* -- RBC 3.87 -- HGB 11.6* 11.5 HCT 35.2 -- MCV 91.0 -- RDW 13.2 -- PLT 336 -- BMP: Recent Labs 10/20/25 1811 NA 135* K 3.4* CL 103 CO2 18* BUN 21 CREATININE 1.16* GLUCOSE 399* CALCIUM 8.5* ANIONGAP 14* LIVER PROFILE: Recent Labs 05/11/25 1811 AST 16 ALT <6 BILITOT 1.3* ALKPHOS 77 PROT 6.8 PT/INR: No results for input(s): PROTIME, INR in the last 72 hours. CARDIAC ENZYMES: No results for input(s): TROPONINI in the last 72 hours. Procalcitonin: No results found for: PROCAL Urine Culture: Results for orders placed or performed during the hospital encounter of 11/01/24 Urine culture Collection Time: 11/01/24 6:59 PM Specimen: Urine, Clean Catch Result Value Ref Range Urine Culture Normal urogenital miah present Urine Culture >100,000 CFU/mL Escherichia coli (A) Susceptibility Escherichia coli - BROTH MICRODILUTION Amoxicillin / Clavulanate <=2 Susceptible ug/ml Ampicillin <=2 Susceptible ug/ml Ampicillin / Sulbactam <=2 Susceptible ug/ml Aztreonam <=1 Susceptible ug/ml Cefazolin <=1 Susceptible ug/ml Cefepime <=0.12 Susceptible ug/ml Ceftriaxone <=0.25 Susceptible ug/ml Ciprofloxacin <=0.06 Susceptible ug/ml Ertapenem <=0.12 Susceptible ug/ml Gentamicin <=1 Susceptible ug/ml Levofloxacin <=0.12 Susceptible ug/ml Meropenem <=0.25 Susceptible ug/ml Nitrofurantoin <=16 Susceptible ug/ml Piperacillin / Tazobactam <=4 Susceptible ug/ml Trimethoprim / Sulfamethoxazole <=20 Susceptible ug/ml COVID-19 PCR: No results for input(s): COVID19 in the last 72 hours. I reviewed: [x] laboratory results [x] radiographic results At the time of today's encounter. Pt was advised of the results. Data: (CAT1) Reviewed 3 or more notes from different specialty or health system (each=1). (CAT1) Reviewed 3 or more labs/studies ordered by another provider not previously counted (each=1, panels count as 1). (CAT1) Ordered 3 or more new labs and/or studies (each=1, panels count as 1). (CAT3) Discussed with ED provider, Dr. Manish Light, regarding patient's eval & mgmt thus far, and agree with the plan for hospitalization. (LOW: 2x CAT1 or independent historian MOD: 3x CAT1 or 1x CAT3 EXTENSIVE: 3x CAT1 and 1x CAT3) Assessment Discussed management with the ED provider and agree with hospitalization. Acute, acute on chronic, unstable/uncontrolled chronic problems/diagnoses: Sepsis secondary to urinary tract infection/cellulitis Hypokalemia Mild DKA SAÚL Hypomagnesemia Hypoalbuminemia Stable chronic problems affecting care, new non-acute diagnoses: stage II grade 1 endometrial cancer Monitor for recurrence atrial fibrillation with RVR Metoprolol/Eliquis for rate control and anticoagulation moderate aortic stenosis Recommend outpatient echocardiogram Hypertension Continue metoprolol Dyslipidemia Can consider statin once patient's renal function improves Hypothyroidism Levothyroxine ordered chronic lymphedema Wound care consulted, elevate legs Plan As a result of the above findings & factors, the following mgmt was pursued: - Gentle fluids. Was given 10 units of insulin in the emergency department. Given extra 16 units of Lantus as well as mealtime insulin plus sliding scale. Continue insulin regardless of glucose levels. If glucose levels drop, transition to dextrose containing fluids to prevent worsening of DKA. Continue to monitor replace electrolytes closely. Broad-spectrum antibiotics with cefepime/vancomycin. Monitor culture results. Wound team consulted. - am labs, replace lytes prn - PT/OT/CM/SW - delirium precautions: increase activity and limit nighttime disturbances - DVT prophylaxis: encourage ambulation and already anticoagulated Complexity: Acute illness or injury posing a threat to life or body function (HIGH). Risk: Admission to hospital-level care was considered or occurred (HIGH). Advance Directive: Full Code Anticipated Discharge - Date -05/15/2025 - Location - Skilled Facility - Pending the following -see above Total time spent (which include face to face and non face to face encounters) : 82 minutes. Toxic drug monitoring/narrow therapeutic index drug monitoring : # Drug name : Vanco/cefepime # Route administered : IV # Method of monitoring : Monitor CBC and BMP for renal injury/cytopenia Extended Emergency Contact Information Primary Emergency Contact: Roe Melendrez Mobile Relation: Niece Secondary Emergency Contact: Jose Potter Mobile Relation: Sibling [employer] Dameon Potter : 1955 Primary Care Physician: Christy Rizzo MD The patient and/or family/surrogate voluntarily agreed to participate in ACP services. Patient s cognitive capacity: Alert and oriented Code Status: [_] [FULL CODE - Continue all advanced life support: CPR,intubation,invasive procedures] [X] [DNR-CCA - DO NOT do CPR, intubation] [_] [DNR-FREEZER UNLOADER - Comfort care only] [_] DNR form [was/was not] signed Summary of discussion: The patient health care POA/ surrogate is the following: Mela Pickett. The patient reports that if her heart stops, she does not want resuscitated. She feels she has a better chance of her illnesses secondary to lung problems only. Therefore she is okay with intubation. Patient is a DNR okay to intubate. I answered all the patient/family questions that I could within the range and scope of the current medical situation. We discussed the medical conditions, risks, benefits, outcomes, and goals of care at this time for the patient's medical issues at hand in the face of the patient's chronic issues and current presentation. Total time spent: 4 minutes were spent discussing the patient's resuscitation status, advance care planning, and end of life care, with patient and/or family/surrogate. Jennifer aTylor DO Division of Hospitalist Medicine [facility] [1] Past Medical History: Diagnosis Date Anxiety Asthma (HHS/HCC) Atrial fibrillation (HCC) Deficiency of nutrient elements Depression Dry eye Endometrial cancer (HCC) 09/30/2020 Fatigue Gastritis GERD (gastroesophageal reflux disease) Glaucoma Hyperlipidemia Hypertension Hypothyroidism Incontinence Intestinal malabsorption (HHS/HCC) Lymph edema Morbid obesity (CMS/HCC) Obstructive sleep apnea PMB (postmenopausal bleeding) Polycystic ovarian syndrome Psoriasis SOB (shortness of breath) on exertion Thyroglossal duct cyst Type 2 diabetes mellitus without complication (HCC) Urinary tract infection Uterine cancer (HCC) Vitamin D deficiency 05/10/2017 Zinc deficiency 06/21/2018 [2] Past Surgical History: Procedure Laterality Date CATARACT EXTRACTION Bilateral CHOLECYSTECTOMY 01/29/2018 w/ LRYGB and Umbilical Hernia repair - [facility] DILATION AND CURETTAGE OF UTERUS 09/03/2020 with hysteroscopy GASTRIC BYPASS 01/29/2018 LRYGB w/ Lap Aggie and Umbilical Hernia repair, [facility] GASTRIC BYPASS HYSTERECTOMY 09/30/2020 [facility]; Dr. Cuauhtemoc Stubbs MOUTH SURGERY gum removal to expose wisdom teeth THYROGLOSSAL DUCT EXCISION [facility]- Dr. Vin Keating THYROIDECTOMY thyroid cyst UMBILICAL HERNIA REPAIR 01/29/2018 w/ LRYGB and Lap Aggie - [facility] UPPER GASTROINTESTINAL ENDOSCOPY 03/20/2017 pre op, [facility] WISDOM TOOTH EXTRACTION 2012 [facility] [3] Family History Problem Relation Name Age of Onset Obesity Mother dementia Diabetes Mother dementia High Blood Pressure Mother dementia Heart disease Mother dementia Stroke Father High Blood Pressure Father Diabetes Father Bladder Cancer Father Obesity Father High Blood Pressure Brother Heart attack Paternal Grandmother Stroke Paternal Grandfather Diabetes Paternal Grandfather Colon cancer Neg Hx [4] Current Facility-Administered Medications: dextrose 5 % infusion, 100 mL/hr, IntraVENous, PRN, Manish Light MD dextrose 50 % solution 12.5 g, 12.5 g, IntraVENous, PRN, Manish Light MD glucagon (human recombinant) injection 1 mg, 1 mg, IntraMUSCular, PRN, Manish Light MD glucose oral gel 15 g, 15 g, Oral, PRN, Manish Light MD magnesium sulfate IVPB premix 2,000 mg, 2,000 mg, IntraVENous, Once, Manish Light MD, Last Rate: 25 mL/hr at 05/11/252029, 2,000 mg at 05/11/252029 potassium chloride 40 mEq in NS 500 mL IVPB (premix), 40 mEq, IntraVENous, Once, Manish Light MD Current Outpatient Medications: albuterol 108 (90 Base) MCG/ACT inhaler, Inhale 2 puffs every 6 hours as needed. (Patient not taking: Reported on 12/22/2024), Disp: , Rfl: apixaban (Eliquis) 5 MG tablet, Take 1 tablet (5 mg) by mouth 2 times daily., Disp: 60 tablet, Rfl: 0 atorvastatin (Lipitor) 40 MG tablet, Take by mouth daily., Disp: , Rfl: BD Insulin Syringe U/F 30G X 1/2 0.5 ML misc, 2 times daily with insulin, Disp: 200 each, Rfl: 3 brimonidine (AlphaGAN P) 0.1 % ophthalmic solution, Administer 1 drop into both eyes 3 times a day., Disp: , Rfl: cholecalciferol (Vitamin D-3) 25 MCG (1000 UT) capsule, Take 50 mcg by mouth daily., Disp: , Rfl: citalopram (CeleXA) 20 MG tablet, Take 20 mg by mouth daily., Disp: , Rfl: Continuous Glucose Sensor (FreeStyle Satya 3 Sensor) [facility], 1 Device every 14 (fourteen) days., Disp: 7 each, Rfl: 3 EPINEPHRINE HCL, ANAPHYLAXIS, IM, Inject into the shoulder, thigh, or buttocks. (Patient not taking: Reported on 12/22/2024), Disp: , Rfl: FREESTYLE LITE test strip, 1 each by Other route 4 times daily. As directed (Patient not taking: Reported on 12/22/2024), Disp: 400 each, Rfl: 3 glucose 4 g chewable tablet, Chew 16 g if needed for low blood sugar. (Patient not taking: Reported on 12/22/2024), Disp: , Rfl: insulin glargine (Lantus) 100 UNIT/ML injection, Inject 24 Units under the skin Nightly. (Patient not taking: Reported on 12/22/2024), Disp: 10 mL, Rfl: 12 Insulin Lispro (Humalog) 100 UNIT/ML solution injection, Inject 8 Units under the skin 3 times daily (with meals)., Disp: 10 mL, Rfl: 12 insulin pen needle 32G x 4 mm misc, Use as instructed 2 times daily, Disp: 200 each, Rfl: 3 levothyroxine (Synthroid, Levoxyl) 175 MCG tablet, Take 1 tablet (175 mcg) by mouth every morning (before breakfast)., Disp: 90 tablet, Rfl: 3 melatonin 5 MG tablet, Take 5 mg by mouth Nightly. (Patient not taking: Reported on 12/22/2024), Disp: , Rfl: metFORMIN, OSM, (Fortamet) 500 MG 24 hr tablet, Take 500 mg by mouth daily. Do not crush, chew, or split. (Patient not taking: Reported on 12/22/2024), Disp: , Rfl: metoprolol tartrate (Lopressor) 50 MG tablet, Take 1 tablet (50 mg) by mouth 2 times daily. (Patient taking differently: Take 25 mg by mouth 2 times daily.), Disp: 60 tablet, Rfl: 11 Multiple Vitamin (multivitamin) tablet, Take 1 tablet by mouth daily., Disp: , Rfl: timolol (Timoptic) 0.5 % ophthalmic solution, Administer 1 drop into both eyes in the morning and 1 drop in the evening., Disp: , Rfl: [5] Allergies Allergen Reactions Bimatoprost Other Blurred vision Doxycycline Hives Erythromycin Hives Levaquin [Levofloxacin] Hives Macrobid [Nitrofurantoin] Hives Penicillins Hives Levofloxacin In D5w Swelling oral Macrolides And Ketolides Hives 1980 Molds & Smuts Itching Mold allergy Nitrofurantoin Monohyd Macro Itching Other Itching documented in this encounter [facility] 05-11-2025 Emergency department Note Emergency Department Encounter [facility] EMERGENCY DEPT Patient: Dameon Potter : 1955 Date of Evaluation: 05/11/2025 ED Supervising Physician: Nettie Rhodes DO I personally evaluated Dameon Potter and made/approved the management plan and take responsibility for the patient management. This will serve as my Supervisory note and shared attestation. I did perform a substantive portion of the visit including all aspects of the Medical Decision Making. I wore appropriate PPE for the entirety of this encounter. ED Course as of 05/11/25 6098 Mon May 11, 2025 [id number] 70-year-old presents emergency department today with generalized weakness. She has been experiencing urinary frequency for the last week and is concerned she may have a UTI. Had a fall about a week ago but was not evaluated at the time. Denies any pain currently from the fall. On exam heart irregularly irregular and tachycardic, lungs good auscultation does have stage II sacral ulcer. Bilateral lymphedema lower extremities with legs wrapped. Will check CBC, CMP, urinalysis, urine culture, lactic acid. Will consult wound care for sacral wound. Patient will require admission for placement. [BM] 5 CBC auto differential(!) Significant for elevated white count and normocytic anemia. [JM] 185 Lactic acid with reflex(!) Significant for hyperlactatemia likely secondary to infectious etiology. [JM] 185 Comprehensive metabolic panel(!) Significant for mild hypokalemia, decreased bicarbonate and elevated anion gap, consistent with hyperlipidemia due to infectious etiology. It was also noted the patient was hyperglycemic and her creatinine was mildly elevated but at baseline. Bilirubin was also mildly elevated. [JM] 1906 Given patient presents with a decreased bicarbonate, elevated anion gap and is hyperglycemic, will order a beta hydroxybutyrate and VBG for DKA workup. [JM] 1920 BETA HYDROXYBUTYRATE(!): 9.6 [BM] ED Course User Index [BM] Nettie Rhodes DO [JM] Manish Light MD Diagnoses as of 05/11/252253 Pressure injury of right buttock, stage 2 (CMS/HCC) Pressure injury of sacral region, stage 1 Ulcer of abdomen wall, limited to breakdown of skin Hyperglycemia Diabetic ketoacidosis without coma associated with diabetes mellitus due to underlying condition (HCC) VBG not found to be elevated low concern for DKA. Was given IV potassium replacement as well as magnesium replacement and subcutaneous insulin for hyperglycemia. Diagnostics interpreted by me: none All diagnostic, treatment, and disposition decisions were made by myself in conjunction with the Resident. I also supervised barragan portions of any procedures performed by the Resident. For all further details of the patient's emergency department visit, please see their documentation. (Comment: Please note this report has been produced using speech recognition software and may contain errors related to that system including errors in grammar, punctuation, and spelling, as well as words and phrases that may be inappropriate. If there are any questions or concerns please feel free to contact the dictating provider for clarification.) Nettie Rhodes DO [employer] Nettie Rhodes DO 05/11/252255 Images from the original note were not included. EMERGENCY DEPARTMENT ENCOUNTER Pt Name: Dameon Potter Birthdate 1955 Date of evaluation: 05/11/2025 ED Provider: Manish Light MD CHIEF COMPLAINT No chief complaint on file. HISTORY OF PRESENT ILLNESS (Location/Symptom, Timing/Onset, Context/Setting, Quality, Duration, Modifying Factors, Severity) Note limiting factors. I wore appropriate PPE for the entirety of this encounter. HPI Dameon Potter is a 70 y.o. female who presents to the emergency department with concerns of weakness. Patient reported that she has been having problems taking care of herself, to the point in which she has had multiple falls the last 1 being 2 weeks ago. She stated that her weakness has made her unable to bathe by herself or cook for herself. She also expressed to have had lymphedema which a friend of hers is helping her with her wounds. Patient also expressed to have increased urinary frequency but when she tries to void she is unable to. She denies fevers, chills, chest pain, palpitations, shortness of breath, abdominal pain, nausea, vomiting, although she did express to have diarrhea which she attributed to her gastric bypass surgery. No other concerns were expressed by the patient at the time of her encounter. Nursing Notes were reviewed. Limitations to history: None Outside historians: None REVIEW OF SYSTEMS Review of Systems as above PAST MEDICAL HISTORY Medical History[1] SURGICAL HISTORY Surgical History[2] CURRENT MEDICATIONS Previous Medications ALBUTEROL 108 (90 BASE) MCG/ACT INHALER Inhale 2 puffs every 6 hours as needed. APIXABAN (ELIQUIS) 5 MG TABLET Take 1 tablet (5 mg) by mouth 2 times daily. ATORVASTATIN (LIPITOR) 40 MG TABLET Take by mouth daily. BD INSULIN SYRINGE U/F 30G X 1/2 0.5 ML MISC 2 times daily with insulin BRIMONIDINE (ALPHAGAN P) 0.1 % OPHTHALMIC SOLUTION Administer 1 drop into both eyes 3 times a day. CHOLECALCIFEROL (VITAMIN D-3) 25 MCG (1000 UT) CAPSULE Take 50 mcg by mouth daily. CITALOPRAM (CELEXA) 20 MG TABLET Take 20 mg by mouth daily. CONTINUOUS GLUCOSE SENSOR (FREESTYLE SATYA 3 SENSOR) MISC 1 Device every 14 (fourteen) days. EPINEPHRINE HCL, ANAPHYLAXIS, IM Inject into the shoulder, thigh, or buttocks. FREESTYLE LITE TEST STRIP 1 each by Other route 4 times daily. As directed GLUCOSE 4 G CHEWABLE TABLET Chew 16 g if needed for low blood sugar. INSULIN GLARGINE (LANTUS) 100 UNIT/ML INJECTION Inject 24 Units under the skin Nightly. INSULIN LISPRO (HUMALOG) 100 UNIT/ML SOLUTION INJECTION Inject 8 Units under the skin 3 times daily (with meals). INSULIN PEN NEEDLE 32G X 4 MM MISC Use as instructed 2 times daily LEVOTHYROXINE (SYNTHROID, LEVOXYL) 175 MCG TABLET Take 1 tablet (175 mcg) by mouth every morning (before breakfast). MELATONIN 5 MG TABLET Take 5 mg by mouth Nightly. METFORMIN, OSM, (FORTAMET) 500 MG 24 HR TABLET Take 500 mg by mouth daily. Do not crush, chew, or split. METOPROLOL TARTRATE (LOPRESSOR) 50 MG TABLET Take 1 tablet (50 mg) by mouth 2 times daily. MULTIPLE VITAMIN (MULTIVITAMIN) TABLET Take 1 tablet by mouth daily. TIMOLOL (TIMOPTIC) 0.5 % OPHTHALMIC SOLUTION Administer 1 drop into both eyes in the morning and 1 drop in the evening. ALLERGIES Bimatoprost, Doxycycline, Erythromycin, Levaquin [levofloxacin], Macrobid [nitrofurantoin], Penicillins, Levofloxacin in d5w, Macrolides and ketolides, Molds & smuts, Nitrofurantoin monohyd macro, and Other FAMILY HISTORY Family History[3] SOCIAL HISTORY Social History[4] SCREENINGS PHYSICAL EXAM ED Triage Vitals Temp Pulse Resp BP -- -- -- -- SpO2 Temp src Heart Rate Source Patient Position -- -- -- -- BP Location FiO2 (%) -- -- Physical Exam Constitutional: General: She is not in acute distress. Appearance: Normal appearance. She is not ill-appearing, toxic-appearing or diaphoretic. HENT: Head: Normocephalic and atraumatic. Eyes: General: No scleral icterus. Right eye: No discharge. Left eye: No discharge. Conjunctiva/sclera: Conjunctivae normal. Cardiovascular: Rate and Rhythm: Normal rate and regular rhythm. Pulses: Normal pulses. Heart sounds: Murmur (Systolic murmur heard in the second intercostal space on the R side, with radiation to the carotids.) heard. No friction rub. No gallop. Pulmonary: Effort: Pulmonary effort is normal. No respiratory distress. Breath sounds: Normal breath sounds. No stridor. No wheezing, rhonchi or rales. Abdominal: General: Abdomen is flat. Bowel sounds are normal. There is no distension. Palpations: Abdomen is soft. There is no mass. Tenderness: There is no abdominal tenderness. There is no guarding or rebound. Hernia: No hernia is present. Musculoskeletal: General: Normal range of motion. Right lower leg: Edema present. Left lower leg: Edema present. Skin: General: Skin is warm. Findings: Erythema (Erythema of the medial thighs bilaterally.) and wound (There is a stage 1 sacral decubitus wound.) present. No abrasion, abscess, acne, bruising, burn, ecchymosis, signs of injury or rash. Comments: Stage II ulcer located by the right buttocks medially. There is also presence of a stage II ulcer at the mons pubis as well as stage I wounds in the lower abdomen. Neurological: General: No focal deficit present. Mental Status: She is alert and oriented to person, place, and time. Cranial Nerves: No cranial nerve deficit. Sensory: No sensory deficit. Motor: Weakness present. Psychiatric: Mood and Affect: Mood normal. Behavior: Behavior normal. DIAGNOSTIC RESULTS RADIOLOGY (Per Emergency Physician): Interpretation per the Radiologist below, if available at the time of this note: No orders to display LABS: Labs Reviewed CBC WITH AUTO DIFFERENTIAL - Abnormal Result Value Auto WBC 16.9 (*) RBC 3.87 Hemoglobin 11.6 (*) Hematocrit 35.2 MCV 91.0 MCH 30.0 MCHC 33.0 RDW 13.2 Platelets 336 MPV 10.8 nRBC 0.0 Neutrophils Relative 92.7 (*) Lymphocytes Relative 2.2 (*) Monocytes Relative 4.4 (*) Eosinophils Relative 0.0 Basophils Relative 0.2 Immature Grans % 0.5 Neutrophils Absolute 15.7 (*) Lymphocytes Absolute 0.4 (*) Monocytes Absolute 0.7 Eosinophils Absolute 0.0 Basophils Absolute 0.0 Immature Grans Absolute 0.1 (*) COMPREHENSIVE METABOLIC PANEL - Abnormal SODIUM 135 (*) POTASSIUM 3.4 (*) CHLORIDE 103 CARBON DIOXIDE 18 (*) ANION GAP 14 (*) UREA NITROGEN 21 CREATININE 1.16 (*) GLUCOSE 399 (*) CALCIUM 8.5 (*) AST (SGOT) 16 ALT <6 ALKALINE PHOSPHATASE 77 ALBUMIN 2.2 (*) BILIRUBIN, TOTAL 1.3 (*) TOTAL PROTEIN 6.8 eGFR 50.8 (*) LACTIC ACID WITH REFLEX - Abnormal LACTIC ACID 3.1 (*) BETA HYDROXYBUTYRATE - Abnormal BETA HYDROXYBUTYRATE 9.6 (*) BLOOD GAS, VENOUS - Abnormal pH, Venous 7.469 (*) pCO2, Venous 31.0 (*) pO2, Venous 47.3 HCO3, Venous 22.0 (*) O2 Sat, Venous 83.1 Base Excess, Venous -0.9 Hgb, blood gas 11.5 TCO2, Venous 23.0 (*) Source Of Oxygen None (Room Air) Amount Of Oxygen na Narrative: Assessment of oxygenation is best done with an arterial blood gas determination. Reference ranges for pO2, bicarbonate, and base excess are for mixed venous blood. Specimens drawn from a peripheral vein will often have higher values. MAGNESIUM - Abnormal MAGNESIUM 1.4 (*) Narrative: Higher values can be expected in females during menses. POCT GLUCOSE METER UNSOLICITED RESULTS - Abnormal Glucose 273 (*) Narrative: Performed by: [facility], [address] [place] [address] CLIA ID: [id number] BLOOD CULTURE - Normal Blood Culture Blood culture incubation started Narrative: Blood Collection Site: Right Wrist BLOOD CULTURE - Normal Blood Culture Blood culture incubation started Narrative: Blood Collection Site: Left Arm URINE CULTURE, ORDERABLE Narrative: The following orders were created for panel order Urine culture. Procedure Abnormality Status --------- ------ Urine culture[[id number]] Urine Hold Cup[[id number]] Please view results for these tests on the individual orders. URINE CULTURE COMPLETE URINALYSIS WITH REFLEX TO CULTURE URINE HOLD CUP LACTIC ACID WITH REFLEX All other labs were within normal range or not returned as of this dictation. EMERGENCY DEPARTMENT COURSE and DIFFERENTIAL DIAGNOSIS/MDM: Vitals: Vitals: 05/11/25 1737 05/11/252022 BP: (!) 141/57 (!) 166/106 BP Location: Left arm Patient Position: Lying Pulse: (!) 116 77 Resp: 17 12 SpO2: 99% 100% Weight: 98 kg (216 lb) Height: 1.676 m (5' 6) The patient presented with a chief complaint of generalized weakness. The differential diagnosis associated with this patient's presentation includes UTI, sepsis, deconditioning. Our workup consisted of ordering/reviewing CBC, CMP, lactic acid, urinalysis, urine culture, blood cultures Patient presented to the ED with concerns of generalized weakness. Upon assessment, patient appeared to be hypertensive and tachycardic. Upon inspection of her lower back it was noticed that the patient has a stage I sacral decubitus ulcer. Lab work so far is consistent with infectious etiology, showing elevated white count and elevated lactic acid. Ceftriaxone 1 g IV x 1 started. Patient was reassessed with along with nursing staff. Upon further inspection of the Botox it was found that she has a stage II ulcer involving her right buttock measuring about 2 cm, as well as a stage II ulcer located in her mons pubis measuring about a centimeter. Inspection of the lower abdomen showed a stage I wound. Beta-hydroxybutyrate was elevated for which patient was started on 10 units of insulin, potassium chloride 40 mEq IV x 1. Case was discussed with Dr. Taylor for admission due to severe sepsis and DKA. Patient was accepted to the general medical floor. ED Course as of 05/11/252027 Mon May 11, 2025 175 70-year-old presents emergency department today with generalized weakness. She has been experiencing urinary frequency for the last week and is concerned she may have a UTI. Had a fall about a week ago but was not evaluated at the time. Denies any pain currently from the fall. On exam heart irregularly irregular and tachycardic, lungs good auscultation does have stage II sacral ulcer. Bilateral lymphedema lower extremities with legs wrapped. Will check CBC, CMP, urinalysis, urine culture, lactic acid. Will consult wound care for sacral wound. Patient will require admission for placement. [BM] 1855 CBC auto differential(!) Significant for elevated white count and normocytic anemia. [JM] 1856 Lactic acid with reflex(!) Significant for hyperlactatemia likely secondary to infectious etiology. [JM] 1857 Comprehensive metabolic panel(!) Significant for mild hypokalemia, decreased bicarbonate and elevated anion gap, consistent with hyperlipidemia due to infectious etiology. It was also noted the patient was hyperglycemic and her creatinine was mildly elevated but at baseline. Bilirubin was also mildly elevated. [JM] 1906 Given patient presents with a decreased bicarbonate, elevated anion gap and is hyperglycemic, will order a beta hydroxybutyrate and VBG for DKA workup. [JM] 1919 BETA HYDROXYBUTYRATE(!): 9.6 [BM] ED Course User Index [BM] Nettie Rhodes DO [JM] Manish Light MD Diagnoses as of 05/11/252027 Pressure injury of right buttock, stage 2 (CMS/HCC) Pressure injury of sacral region, stage 1 Ulcer of abdomen wall, limited to breakdown of skin Hyperglycemia Diabetic ketoacidosis without coma associated with diabetes mellitus due to underlying condition (HCC) ED Medications managed: Medications sodium chloride 0.9 % bolus 1,000 mL (1,000 mL IntraVENous New Bag 05/11/251941) acetaminophen (Tylenol) tablet 650 mg (has no administration in time range) insulin regular (HumuLIN R,NovoLIN R) injection 10 Units (has no administration in time range) potassium chloride 40 mEq in NS 500 mL IVPB (premix) (has no administration in time range) magnesium sulfate IVPB premix 2,000 mg (has no administration in time range) glucose oral gel 15 g (has no administration in time range) dextrose 50 % solution 12.5 g (has no administration in time range) glucagon (human recombinant) injection 1 mg (has no administration in time range) dextrose 5 % infusion (has no administration in time range) cefTRIAXone (Rocephin) 1,000 mg in sodium chloride 0.9 % 50 mL IVPB Mini-Bag Plus (0 mg IntraVENous Stopped 05/11/252006) PROCEDURES: Unless otherwise noted below, none FINAL IMPRESSION 1. Pressure injury of right buttock, stage 2 (CMS/HCC) 2. Pressure injury of sacral region, stage 1 3. Ulcer of abdomen wall, limited to breakdown of skin 4. Hyperglycemia 5. Diabetic ketoacidosis without coma associated with diabetes mellitus due to underlying condition (HCC) DISPOSITION Admit 05/11/2025 08:20:33 PM PATIENT REFERRED TO: No follow-up provider specified. DISCHARGE MEDICATIONS: New Prescriptions No medications on file (Comment: Please note this report has been produced using speech recognition software and may contain errors related to that system including errors in grammar, punctuation, and spelling, as well as words and phrases that may be inappropriate. If there are any questions or concerns please feel free to contact the dictating provider for clarification.) Modify plan per attending, Dr. Min Light MD (electronically signed) Emergency Medicine Provider [1] Past Medical History: Diagnosis Date Anxiety Asthma (HHS/HCC) Atrial fibrillation (HCC) Deficiency of nutrient elements Depression Dry eye Endometrial cancer (HCC) 09/30/2020 Fatigue Gastritis GERD (gastroesophageal reflux disease) Glaucoma Hyperlipidemia Hypertension Hypothyroidism Incontinence Intestinal malabsorption (HHS/HCC) Lymph edema Morbid obesity (CMS/HCC) Obstructive sleep apnea PMB (postmenopausal bleeding) Polycystic ovarian syndrome Psoriasis SOB (shortness of breath) on exertion Thyroglossal duct cyst Type 2 diabetes mellitus without complication (HCC) Urinary tract infection Uterine cancer (HCC) Vitamin D deficiency 05/10/2017 Zinc deficiency 06/21/2018 [2] Past Surgical History: Procedure Laterality Date CATARACT EXTRACTION Bilateral CHOLECYSTECTOMY 01/29/2018 w/ LRYGB and Umbilical Hernia repair - [facility] DILATION AND CURETTAGE OF UTERUS 09/03/2020 with hysteroscopy GASTRIC BYPASS 01/29/2018 LRYGB w/ Lap Aggie and Umbilical Hernia repair, [facility] GASTRIC BYPASS HYSTERECTOMY 09/30/2020 [facility]O; Dr. Cuauhtemoc Stubbs MOUTH SURGERY 1979' gum removal to expose wisdom teeth THYROGLOSSAL DUCT EXCISION [facility]- Dr. Vin Keating THYROIDECTOMY thyroid cyst UMBILICAL HERNIA REPAIR 01/29/2018 w/ LRYGB and Lap Aggie - [facility] UPPER GASTROINTESTINAL ENDOSCOPY 03/20/2017 pre op, [facility] WISDOM TOOTH EXTRACTION 2012 [facility] [3] Family History Problem Relation Name Age of Onset Obesity Mother dementia Diabetes Mother dementia High Blood Pressure Mother dementia Heart disease Mother dementia Stroke Father High Blood Pressure Father Diabetes Father Bladder Cancer Father Obesity Father High Blood Pressure Brother Heart attack Paternal Grandmother Stroke Paternal Grandfather Diabetes Paternal Grandfather Colon cancer Neg Hx [4] Social History Socioeconomic History Marital status: Single Tobacco Use Smoking status: Never Smokeless tobacco: Never Substance and Sexual Activity Alcohol use: No Drug use: No Social Drivers of Health Transportation Needs: Unmet Transportation Needs (11/02/2024) PRAPARE - Transportation Lack of Transportation (Medical): Yes Lack of Transportation (Non-Medical): Yes Intimate Partner Violence: Not At Risk (11/02/2024) Humiliation, Afraid, Rape, and Kick questionnaire Fear of Current or Ex-Partner: No Emotionally Abused: No Physically Abused: No Sexually Abused: No Housing Stability: Low Risk (11/05/2024) Housing Stability Vital Sign Unable to Pay for Housing in the Last Year: No Number of Times Moved in the Last Year: 0 Homeless in the Last Year: No Recent Concern: Housing Stability - High Risk (11/02/2024) Housing Stability Vital Sign Unable to Pay for Housing in the Last Year: Yes Homeless in the Last Year: Yes Manish Light MD Resident 05/11/252027 Cosigned by Nettie Rhodes DO at 05/11/2025 11:42 PM EDT documented in this encounter [facility] 01-03-2025 Telephone encounter Note Patient called with negative PET scan. With this and negative biopsy unlikely recurrent endometrial cancer. Will send to her primary care physician, possible pulmonary consult. [facility] 01-03-2025 Miscellaneous Notes Patient called with negative PET scan. With this and negative biopsy unlikely recurrent endometrial cancer. Will send to her primary care physician, possible pulmonary consult. documented in this encounter [facility] 01-01-2025 Telephone encounter Note We have been unable to reach your patient to schedule their testing. Test Name: Transthoracic echocardiogram (TTE) complete with contrast, bubble, strain, and 3D PRN 1st Attempt: per chart this was completed and resulted 11/03/24. TE to office. 01/01/25 LR [facility] 01-01-2025 Miscellaneous Notes We have been unable to reach your patient to schedule their testing. Test Name: Transthoracic echocardiogram (TTE) complete with contrast, bubble, strain, and 3D PRN 1st Attempt: per chart this was completed and resulted 11/03/24. TE to office. 01/01/25 LR documented in this encounter [facility] 12-23-2024 Telephone encounter Note S: Patient and her home care nurse[facility]aqueline with [facility] with [facility] nurse regarding high blood pressure B: Onset of symptoms/concern today A: Nurse called to report patient's blood pressure today was 184/92 after taking her prescribed medications. She has mild bilateral lower extremity edema but has CHRISTY boots on so unable to determine extent of edema. Does not weigh herself daily. Denies headache, dizziness, blurry vision, shortness of breath. R: Attempted to schedule patient for an office visit but she does not have transportation at this time. Care advice provided. Patient understands care advice. No further needs at this time. Patient instructed to call back with new or worsening symptoms. Reason for Disposition Systolic BP >= 180 OR Diastolic >= 110 Protocols used: Blood Pressure - [facility] 12-23-2024 Miscellaneous Notes S: Patient and her home care nurseJaqueline with [facility] spoke with [facility] nurse regarding high blood pressure B: Onset of symptoms/concern today A: Nurse called to report patient's blood pressure today was 184/92 after taking her prescribed medications. She has mild bilateral lower extremity edema but has CHRISTY boots on so unable to determine extent of edema. Does not weigh herself daily. Denies headache, dizziness, blurry vision, shortness of breath. R: Attempted to schedule patient for an office visit but she does not have transportation at this time. Care advice provided. Patient understands care advice. No further needs at this time. Patient instructed to call back with new or worsening symptoms. Reason for Disposition Systolic BP >= 180 OR Diastolic >= 110 Protocols used: Blood Pressure - [facility] documented in this encounter [facility] 12-23-2024 Telephone encounter Note Called with Ct bx., will scheudle PET [facility] 12-23-2024 Miscellaneous Notes Called with Ct bx., will scheudle PET documented in this encounter [facility] 12-22-2024 Nurse Note Discharge instructions given patient verbalizes understanding. IV discontinued, Bx. Site intact no complications. Patient wheeled out via wheelchair [facility] 12-22-2024 Miscellaneous Notes Discharge instructions given patient verbalizes understanding. IV discontinued, Bx. Site intact no complications. Patient wheeled out via wheelchair Pt c/o nausea. Leelee rick and crackers provided. Pt received from CT biopsy to IR post procedure #5. Pt A/O X 3. Pt denies pain . Bandaid right low back dry and intact. Pt repositioned for comfort. Pt declined food and drink at present. B/P elevated, will continue to assess. documented in this encounter [facility] 12-22-2024 Nurse Note Pt c/o nausea. Leelee rick and crackers provided. [facility] 12-22-2024 Note Pt received from CT biopsy to IR post procedure #5. Pt A/O X 3. Pt denies pain . Bandaid right low back dry and intact. Pt repositioned for comfort. Pt declined food and drink at present. B/P elevated, will continue to assess. [facility] 12-22-2024 Nurse Note Pt received from CT biopsy to IR post procedure #5. Pt A/O X 3. Pt denies pain . Bandaid right low back dry and intact. Pt repositioned for comfort. Pt declined food and drink at present. B/P elevated, will continue to assess. [facility] 12-22-2024 Hospital Discharge instructions Yue Patton RN - 12/22/2024 9:49 AM EDT Biopsy Discharge Instructions Your Recovery A biopsy is a procedure that is performed to obtain a small piece of tissue from an organ, bone, growth, or tumor. This tissue is sent to the lab where a pathologist can examine it to look for cancer or to diagnose other health problems. The area where the biopsy was taken may be sore for a couple days following the procedure. You may develop a bruise. This care sheet gives you a general idea about how long it will take for you to recover. However, each person recovers at a different pace. How can you care for yourself at home? Activity - Avoid heavy lifting or strenuous activities for 24-48 hours following your procedure Diet - You may resume your normal diet. If your stomach is upset, try bland, low-fat food like plain rice, broiled chicken, toast and yogurt. - Drink plenty of fluids. Medications - You may resume your home medications the day after the procedure unless otherwise instructed by your doctor. Care of Biopsy Site - Keep a bandage over the biopsy site for 24 hours. It is important to keep the site clean and dry during this time. - After 24 hours you may remove the bandage and clean the area with a mild soap. - You may apply heat or ice to the procedure site to help with any soreness. Alternate 20 minutes with heat or ice, and 20 minutes without. Be sure to use a barrier such as a towel between the ice or heat and your skin. - Monitor the site for signs of infection including redness, discharge or swelling. If you are concerned with the site, please contact us. When should you call for help? - For emergent concerns following your procedure please call 911 or go to the nearest emergency room. - For any non-emergent post-procedure questions or concerns, please give us a call between 8am and 5pm. - [facility] - [phone] - [facility] - [phone] - For questions after hours, please call [phone] and ask for the on-call Angiography Radiologist. When can I expect to get my test results? - It typically takes 1-2 weeks to get your biopsy results. - All biopsy results will be sent to your doctor that ordered the procedure. For any questions regarding test results, please contact your doctor s office. This handout is intended to provide general educational material to assist you in making informed decisions regarding your medical care. Specific questions about your unique medical conditions should be referred to your primary care physician. The following attachments cannot be sent through Care Everywhere.Moderate Sedation in Adults Discharge Instructions (Senegalese)documented in this encounter [facility] 12-22-2024 Note [facility] 12-08-2024 History of Present illness Narrative HPI: Dameon Potter is a pleasant 69 y.o. female who presents in consultation from Dr. Case Rizzo for further evaluation and management of abnormal imaging studies. She initiallypresented with history of a stage II grade 1 endometrial cancer, intact MMR diagnosed in September 2020. Patient initially referred by Dr. Butt patient was treated with robotic hysterectomy BSO lymph node sampling followed by adjuvant radiotherapy. 11/29/20 - 01/03/21: 45.00/45.00 Gy to the Pelvis in 25 fractions of 1.80 Gy using the VMAT/Daily IGRT technique with 10 MV over 35 days. 01/14/21 - 01/28/21: 30.00/30.00 Gy to the Vaginal Brachy in 5 fractions of 6.00 Gy using the Brachytherapy technique with HDR: Ir192 over 14 days. Last seen in office 04/2022 Was seen by her doctor and was noted to have weight loss. Patient feels she is lost maybe 40 pounds over the last couple of months. This is due to lack of appetite not due to pain. Patient recently underwent imaging studies. CT of the chest shows new pulmonary nodules, CT of the abdomen shows a right retroperitoneal node. There are multiple new irregular nodules within the lungs bilaterally measuring up to 13 mm in diameter within the left upper lobe. These are highly suspicious for pulmonary metastatic disease. PET/CT may be helpful for additional characterization. No lymphadenopathy seen within the chest. ABDOMEN AND PELVIS: The liver, gallbladder, spleen, pancreas, and adrenal glands appear within normal limits. There are a couple of tiny subcentimeter bilateral renal cysts. The abdominal aorta is normal in caliber. Scattered vascular calcification is noted. There is an enlarged lower retroperitoneal lymph node to the right of the aortic bifurcation measuring 2.3 cm in short axis, new when compared to the CT of the abdomen and pelvis from 12/04/2023. Patient denies any vaginal bleeding, abdominal pain or discomfort. Denies any other nodularity. Currently lives by herself but does not drive. Has a lot of issue with chronic cellulitis of her lower extremities, and poorly controlled diabetes. She recently got out of a rehab hospital. Is unable to drive on her own. Denies any history of PE DVT or breast cancer. Medical History[1] Surgical History[2] Family History[3] Social History[4] Current Medications[5] Allergies as of 12/08/2024 - Reviewed 12/05/2024 Allergen Reaction Noted Bimatoprost Other 05/06/2018 Doxycycline Hives 05/24/2022 Erythromycin Hives 05/24/2022 Levaquin [levofloxacin] Hives 05/24/2022 Macrobid [nitrofurantoin] Hives 05/24/2022 Penicillins Hives 05/24/2022 Levofloxacin in d5w Swelling 03/01/2015 Macrolides and ketolides Hives 02/27/2004 Molds & smuts Itching 03/24/2015 Nitrofurantoin monohyd macro Itching 12/22/2014 Other Itching 02/11/2013 Review of Systems: Review of Systems Constitutional: Positive for appetite change and unexpected weight change. Gastrointestinal: Negative for abdominal distention and abdominal pain. Genitourinary: Negative for pelvic pain and vaginal bleeding. Hematological: Negative for adenopathy. BP (!) 162/94 Pulse 72 Ht 1.676 m (5' 5.98) Wt 100 kg (221 lb) SpO2 98% BMI 35.69 kg/m Physical Exam: Physical Exam Vitals and nursing note reviewed. Exam conducted with a sql dba present. Constitutional: Appearance: She is obese. She is ill-appearing. Abdominal: General: Abdomen is flat. There is no distension. Palpations: Abdomen is soft. There is no mass. Comments: Well-healed robotic incisions without nodularity Genitourinary: General: Normal vulva. Comments: Uterus/tubes/ovaries are absent Vagina: well healed cuff. No masses BME: no masses Bladder: no masses Urethra: midline and mobile Lymphadenopathy: Upper Body: Right upper body: No supraclavicular adenopathy. Left upper body: No supraclavicular adenopathy. Lower Body: No right inguinal adenopathy. No left inguinal adenopathy. Neurological: Mental Status: She is alert. Psychiatric: Mood and Affect: Mood normal. Labs: No components found for: CBC No components found for: CMP Pathology: : Radiology review; CT scan of the abdomen pelvis and chest have been reviewed. It does show new pulmonary nodules as well as an enlarged right periaortic lymph nodes suspicious for metastatic disease. ASSESSMENT/PLAN: Diagnosis Plan 1. Endometrial cancer (CMS/HCC) (HCC) Ambulatory referral to Interventional Radiology 2. Multiple lung nodules Ambulatory referral to Interventional Radiology Recommend CT-guided biopsy of one of the lung nodules. Order has been placed. Will send for estrogen as well as progesterone receptors. Discussed that if positive for recurrent endometrial cancer options would include hormonal therapy based upon progesterone receptor versus cytotoxic chemotherapy. All the patient's questions were answered to the best my ability and total time spent in review of EMR review of radiology imaging discussion of plan with patient as well as coordination of CT-guided biopsy ordering was 35 minutes [1] Past Medical History: Diagnosis Date Anxiety Asthma Atrial fibrillation (HCC) Deficiency of nutrient elements Depression Dry eye Endometrial cancer (CMS/HCC) (HCC) 09/30/2020 Fatigue Gastritis GERD (gastroesophageal reflux disease) Glaucoma Hyperlipidemia Hypertension Hypothyroidism Incontinence Intestinal malabsorption Lymph edema Morbid obesity (HCC) Obstructive sleep apnea PMB (postmenopausal bleeding) Polycystic ovarian syndrome Psoriasis SOB (shortness of breath) on exertion Thyroglossal duct cyst Type 2 diabetes mellitus without complication (HCC) Urinary tract infection Uterine cancer (CMS/HCC) (HCC) Vitamin D deficiency 05/10/2017 Zinc deficiency 06/21/2018 [2] Past Surgical History: Procedure Laterality Date CATARACT EXTRACTION Bilateral CHOLECYSTECTOMY 01/29/2018 w/ LRYGB and Umbilical Hernia repair - [facility] DILATION AND CURETTAGE OF UTERUS 09/03/2020 with hysteroscopy GASTRIC BYPASS 01/29/2018 LRYGB w/ Lap Aggie and Umbilical Hernia repair, [facility] GASTRIC BYPASS HYSTERECTOMY 09/30/2020 [facility]; Dr. Cuauhtemoc Stubbs MOUTH SURGERY gum removal to expose wisdom teeth THYROGLOSSAL DUCT EXCISION [facility]- Dr. Vin Keating THYROIDECTOMY thyroid cyst UMBILICAL HERNIA REPAIR 01/29/2018 w/ LRYGB and Lap Aggie - [facility] UPPER GASTROINTESTINAL ENDOSCOPY 03/20/2017 pre op, [facility] WISDOM TOOTH EXTRACTION 2012 [facility] [3] Family History Problem Relation Name Age of Onset Obesity Mother dementia Diabetes Mother dementia High Blood Pressure Mother dementia Heart disease Mother dementia Stroke Father High Blood Pressure Father Diabetes Father Bladder Cancer Father Obesity Father High Blood Pressure Brother Heart attack Paternal Grandmother Stroke Paternal Grandfather Diabetes Paternal Grandfather Colon cancer Neg Hx [4] Social History Socioeconomic History Marital status: Single Tobacco Use Smoking status: Never Smokeless tobacco: Never Substance and Sexual Activity Alcohol use: No Drug use: No Social Drivers of Health Transportation Needs: Unmet Transportation Needs (11/02/2024) PRAPARE - Transportation Lack of Transportation (Medical): Yes Lack of Transportation (Non-Medical): Yes Intimate Partner Violence: Not At Risk (11/02/2024) Humiliation, Afraid, Rape, and Kick questionnaire Fear of Current or Ex-Partner: No Emotionally Abused: No Physically Abused: No Sexually Abused: No Housing Stability: Low Risk (11/05/2024) Housing Stability Vital Sign Unable to Pay for Housing in the Last Year: No Number of Times Moved in the Last Year: 0 Homeless in the Last Year: No Recent Concern: Housing Stability - High Risk (11/02/2024) Housing Stability Vital Sign Unable to Pay for Housing in the Last Year: Yes Homeless in the Last Year: Yes [5] Current Outpatient Medications Medication Sig Dispense Refill albuterol 108 (90 Base) MCG/ACT inhaler Inhale 2 puffs every 6 hours as needed. apixaban (Eliquis) 5 MG tablet Take 1 tablet (5 mg) by mouth 2 times daily. 60 tablet 0 atorvastatin (Lipitor) 40 MG tablet Take by mouth daily. brimonidine (AlphaGAN P) 0.1 % ophthalmic solution Administer 1 drop into both eyes 3 times a day. citalopram (CeleXA) 20 MG tablet Take 20 mg by mouth daily. insulin glargine (Lantus) 100 UNIT/ML injection Inject 24 Units under the skin Nightly. 10 mL 12 Insulin Lispro (Humalog) 100 UNIT/ML solution injection Inject 8 Units under the skin 3 times daily (with meals). 10 mL 12 levothyroxine (Synthroid, Levoxyl) 175 MCG tablet Take 1 tablet (175 mcg) by mouth every morning (before breakfast). 90 tablet 3 metFORMIN, OSM, (Fortamet) 500 MG 24 hr tablet Take 500 mg by mouth daily. Do not crush, chew, or split. metoprolol tartrate (Lopressor) 50 MG tablet Take 1 tablet (50 mg) by mouth 2 times daily. (Patient taking differently: Take 25 mg by mouth 2 times daily.) 60 tablet 11 timolol (Timoptic) 0.5 % ophthalmic solution Administer 1 drop into both eyes in the morning and 1 drop in the evening. BD Insulin Syringe U/F 30G X 1/2 0.5 ML misc 2 times daily with insulin 200 each 3 cholecalciferol (Vitamin D-3) 25 MCG (1000 UT) capsule Take 50 mcg by mouth daily. Continuous Glucose Sensor (FreeStyle Satya 3 Sensor) misc 1 Device every 14 (fourteen) days. 7 each 3 EPINEPHRINE HCL, ANAPHYLAXIS, IM Inject into the shoulder, thigh, or buttocks. FREESTYLE LITE test strip 1 each by Other route 4 times daily. As directed 400 each 3 glucose 4 g chewable tablet Chew 16 g if needed for low blood sugar. insulin pen needle 32G x 4 mm misc Use as instructed 2 times daily 200 each 3 melatonin 5 MG tablet Take 5 mg by mouth Nightly. Multiple Vitamin (multivitamin) tablet Take 1 tablet by mouth daily. No current facility-administered medications for this visit. [facility] Careg[facility] was offered to the patient for exam. Patient accepted, medical driver in room during exam documented in this encounter [facility] 12-04-2024 Telephone encounter Note S: DMITRIY Parsons with [facility] at Home spoke with [facility] nurse regarding high Bp. B: Onset of symptoms/concern today. A: Current Bp 178/90. She reports that patient said that this is not high Bp for her. She states that patient is asymptomatic. She reports that patient states that she did not begin her new Bp medication that she picked up over the weekend. Jaqueline states that medications are in a tote, tub and barrel. She states that patient told her that she does not have anyone that can help her with her medications. There are concerns for hoarding. States that patient has to walk crooked to get through walkways d/t hoarding. Reports a strong smell of urine in the home also. R: Jaqueline states that she will send an email to her liaison to reach out to certified social workers in health care regarding patient's situation. CAC Rn advised Jaqueline that a message would be sent to the office, she verbalized understanding. No further needs at this time. Reason for Disposition Systolic BP >= 160 OR Diastolic >= 100 Protocols used: Blood Pressure - [id number] [facility] 12-04-2024 Miscellaneous Notes S: [facility] spoke with [facility] nurse regarding high Bp. B: Onset of symptoms/concern today. A: Current Bp 178/90. She reports that patient said that this is not high Bp for her. She states that patient is asymptomatic. She reports that patient states that she did not begin her new Bp medication that she picked up over the weekend. Jaqueline states that medications are in a tote, tub and barrel. She states that patient told her that she does not have anyone that can help her with her medications. There are concerns for hoarding. States that patient has to walk crooked to get through walkways d/t hoarding. Reports a strong smell of urine in the home also. R: Jaqueline states that she will send an email to her liaison to reach out to certified social workers in health care regarding patient's situation. CAC Rn advised Jaqueline that a message would be sent to the office, she verbalized understanding. No further needs at this time. Reason for Disposition Systolic BP >= 160 OR Diastolic >= 100 Protocols used: Blood Pressure - [id number] documented in this encounter [facility] 11-25-2024 Evaluation + Plan note Associated Problem(s): Type 2 diabetes mellitus with hyperglycemia (HCC) -BGTs have improved, has had a few readings on the lower side frequently in sander portable machine, concern for hypoglycemia home-going -11/02 A1C 12.9 -Decrease Lispro to 12U with meals, and Lantus 25 units -Continue metformin ER 500mg daily, patient tolerating well, could consider up- titration in the future -Accuchecks monitor trends -Hypoglycemia protocol in place -Patient to follow-up with Endocrinology [facility] 11-25-2024 Miscellaneous Notes Associated Problem(s): Type 2 diabetes mellitus with hyperglycemia (HCC) -BGTs have improved, has had a few readings on the lower side frequently in sander portable machine, concern for hypoglycemia home-going -11/02 A1C 12.9 -Decrease Lispro to 12U with meals, and Lantus 25 units -Continue metformin ER 500mg daily, patient tolerating well, could consider up- titration in the future -Accuchecks monitor trends -Hypoglycemia protocol in place -Patient to follow-up with Endocrinology Associated Problem(s): Atrial fibrillation (HCC) -Newly diagnosed while inpatient -Hrs have been high 50s, low 60s over the last few days, today with VS HR 49 -4/16 TTE shows hyperdynamic LVEF >75% with increased LV wall thickness. -Will decrease metoprolol to 25mg BID, discussed with patient -Continue apixaban 5mg BID -Has hospital follow-up scheduled with [facility] Cardiology on 12/02/2024 with Carli CELAYA at 1000AM, informed of recent medication change. [facility] to follow until cardiology follow-up documented in this encounter [facility] 11-25-2024 Evaluation + Plan note Associated Problem(s): Atrial fibrillation (HCC) -Newly diagnosed while inpatient -Hrs have been high 50s, low 60s over the last few days, today with VS HR 49 -4/16 TTE shows hyperdynamic LVEF >75% with increased LV wall thickness. -Will decrease metoprolol to 25mg BID, discussed with patient -Continue apixaban 5mg BID -Has hospital follow-up scheduled with [facility] Cardiology on 12/02/2024 with Carli CELAYA at 1000AM, informed of recent medication change. [facility] to follow until cardiology follow-up [facility] 11-25-2024 History of Present illness Narrative Images from the original note were not included. [facility] Follow-up Visit [facility] Dameon Potter : 1955 Visit Date: 11/25/2024 Facility: [facility] CC: Follow-up Note for bradycardia, DMII Assessment and Plan: 1. Persistent atrial fibrillation (HCC) Assessment & Plan: -Newly diagnosed while inpatient -Hrs have been high 50s, low 60s over the last few days, today with VS HR 49 -4/16 TTE shows hyperdynamic LVEF >75% with increased LV wall thickness. -Will decrease metoprolol to 25mg BID, discussed with patient -Continue apixaban 5mg BID -Has hospital follow-up scheduled with [facility] Cardiology on 12/02/2024 with Carli Aldrich APRN-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 at 1000AM, informed of recent medication change. [facility] to follow until cardiology follow-up 2. Type 2 diabetes mellitus with hyperglycemia, with long-term current use of insulin ([facility]) Assessment & Plan: -BGTs have improved, has had a few readings on the lower side frequently in sander portable machine, concern for hypoglycemia home-going -11/02 A1C 12.9 -Decrease Lispro to 12U with meals, and Lantus 25 units -Continue metformin ER 500mg daily, patient tolerating well, could consider up- titration in the future -Accuchecks monitor trends -Hypoglycemia protocol in place -Patient to follow-up with Endocrinology Follow up: with PCP HPI: The patient is known to me. Admitted to [facility] on 11/05 following hospitalization for hyperglycemia On exam the patient is seen sitting upright in recliner watching television in no acute distress. She tells me that she has had a few episodes of near hypoglycemia, over the last few days where she felt shaky and tells me that the nurses had to give her goldfish and a Coke. I discussed decreasing her fast acting mealtime insulin and the longer acting bedtime insulin. She is agreeable to this. I also discussed with patient that her heart rate has been trending on the lower side, and I have concerns for bradycardia while she is at home. She denies feelings of dizziness or lightheadedness when getting up and walking around, however she has noticed the lower number when nursing staff takes her vital signs. She is agreeable to the lower dose of metoprolol. I educated her the importance of rate control with new diagnosis of atrial fibrillation, and she voiced understanding. I assured her that I would make her occupational health coordinator and special forces senior sergeant aware of the changes being made today. She is thankful for the information and care throughout her stay at SNF. Spoke with bedside AVIONICS SYSTEMS ENGINEER regarding medication changes. She states she has not yet called in patient's medications to the pharmacy, but will make sure she will call in the updated dosages. Will send progress note as FYI of medication changes to PCP, cardiology, and endocrinology. I called and spoke to [facility] Home liaison regarding medication changes as well to ensure nursing will have updated list and can provide teaching when they open services tomorrow. HistoryReviewed: Past Medical History: Diagnosis Date Anxiety Asthma Atrial fibrillation ([facility]) Deficiency of nutrient elements Depression Dry eye Endometrial cancer ([facility]) ([facility]) 09/30/2020 Fatigue Gastritis GERD (gastroesophageal reflux disease) Glaucoma Glaucoma Hyperlipidemia Hypertension Hypothyroid Hypothyroidism Incontinence Intestinal malabsorption Lymph edema Morbid obesity ([facility]) Obstructive sleep apnea PMB (postmenopausal bleeding) Polycystic ovarian syndrome Psoriasis SOB (shortness of breath) on exertion Thyroglossal duct cyst Type 2 diabetes mellitus without complication ([facility]) Urinary tract infection Uterine cancer ([facility]) ([facility]) Vitamin D deficiency 05/10/2017 Zinc deficiency 06/21/2018 Allergies: Allergies Allergen Reactions Bimatoprost Other Blurred vision Doxycycline Hives Erythromycin Hives Levaquin [Levofloxacin] Hives Macrobid [Nitrofurantoin] Hives Penicillins Hives Levofloxacin In D5w Swelling oral Macrolides And Ketolides Hives 1980 Molds & Smuts Itching Mold allergy Nitrofurantoin Monohyd Macro Itching Other Itching Current Outpatient Medications Medication Sig Dispense Refill albuterol 108 (90 Base) MCG/ACT inhaler Inhale 2 puffs every 6 hours as needed. apixaban (Eliquis) 5 MG tablet Take 1 tablet (5 mg) by mouth 2 times daily. 60 tablet 0 atorvastatin (Lipitor) 40 MG tablet Take by mouth daily. BD Insulin Syringe U/F 30G X 1/2 0.5 ML misc 2 times daily with insulin 200 each 3 brimonidine (AlphaGAN P) 0.1 % ophthalmic solution Administer 1 drop into both eyes 3 times a day. cholecalciferol (Vitamin D-3) 25 MCG (1000 UT) capsule Take 50 mcg by mouth daily. citalopram (CeleXA) 20 MG tablet Take 20 mg by mouth daily. Continuous Glucose Sensor (FreeStyle Satya 3 Sensor) misc 1 Device every 14 (fourteen) days. 7 each 3 EPINEPHRINE HCL, ANAPHYLAXIS, IM Inject into the shoulder, thigh, or buttocks. FREESTYLE LITE test strip 1 each by Other route 4 times daily. As directed 400 each 3 glucose 4 g chewable tablet Chew 16 g if needed for low blood sugar. insulin glargine (Lantus) 100 UNIT/ML injection Inject 24 Units under the skin Nightly. (Patient taking differently: Inject 28 Units under the skin Nightly.) 10 mL 12 Insulin Lispro (Humalog) 100 UNIT/ML solution injection Inject 8 Units under the skin 3 times daily (with meals). (Patient taking differently: Inject 12 Units under the skin 3 times daily (with meals).) 10 mL 12 insulin pen needle 32G x 4 mm misc Use as instructed 2 times daily 200 each 3 levothyroxine (Synthroid, Levoxyl) 175 MCG tablet Take 1 tablet (175 mcg) by mouth every morning (before breakfast). 90 tablet 3 melatonin 5 MG tablet Take 5 mg by mouth Nightly. metFORMIN, OSM, (Fortamet) 500 MG 24 hr tablet Take 500 mg by mouth daily. Do not crush, chew, or split. metoprolol tartrate (Lopressor) 50 MG tablet Take 1 tablet (50 mg) by mouth 2 times daily. (Patient taking differently: Take 0.5 tablets by mouth 2 times daily.) 60 tablet 11 Multiple Vitamin (multivitamin) tablet Take 1 tablet by mouth daily. timolol (Timoptic) 0.5 % ophthalmic solution Administer 1 drop into both eyes in the morning and 1 drop in the evening. No current facility-administered medications for this visit. Review of Systems Constitutional: Negative for chills, fatigue and fever. HENT: Negative for congestion. Respiratory: Positive for shortness of breath. Negative for cough. Cardiovascular: Positive for leg swelling. Negative for chest pain and palpitations. Gastrointestinal: Negative for abdominal distention, constipation, diarrhea, nausea and vomiting. Genitourinary: Negative for dysuria, frequency, hematuria and vaginal pain. Musculoskeletal: Negative for arthralgias. Neurological: Positive for weakness (generalized). Psychiatric/Behavioral: Negative for confusion. Vitals: BP (!) 144/73 Pulse (!) 49 Temp 36.6 C (97.8 F) Resp 16 Wt 222 lb (101 kg) SpO2 98% BMI 35.83 kg/m Physical Exam HENT: Head: Normocephalic and atraumatic. Mouth/Throat: Mouth: Mucous membranes are moist. Pharynx: Oropharynx is clear. Eyes: Comments: Wears glasses Cardiovascular: Rate and Rhythm: Normal rate. Heart sounds: Murmur heard. Pulmonary: Effort: Pulmonary effort is normal. Breath sounds: Normal breath sounds. Comments: On RA Abdominal: General: Abdomen is flat. Bowel sounds are normal. There is no distension. Palpations: Abdomen is soft. Tenderness: There is no abdominal tenderness. There is no guarding. Comments: LBM 5 Musculoskeletal: Right lower leg: Edema present. Left lower leg: Edema present. Skin: General: Skin is warm and dry. Comments: Unna boots applied Neurological: Mental Status: She is alert and oriented to person, place, and time. Psychiatric: Mood and Affect: Mood normal. Behavior: Behavior normal. Thought Content: Thought content normal. Judgment: Judgment normal. Recent Labs: 11/10 CMP: Glucose 172, BUN 30, GFR 55, Ca 8.2, albumin 2.8 11/10 CBC: RBC 3.77, Hgb 11.4, Hct 33.2 11/10 Vitamin D: 26 I spent total time of 48 minutes face to face with the patient and/or family discussing the diagnosis and importance of compliance with the treatment plan as well as documenting on the day of the visit. In addition, that total time includes the following: -Reviewing previous notes, -Obtaining and/or reviewing separately obtained history, -Ordering prescription medications, tests and procedures, -Communicating results to the patient/family/caregiver, -Counseling/educating the patient/family/caregiver, -Documenting clinical information in the patients electronic record, -Coordination of care for the patient, and -Performing a medically appropriate exam and/or evaluation (Please note: Portions of this note were completed with a voice recognition program. Efforts were made to edit the dictations but occasionally words and phrases are mis-transcribed.) documented in this encounter [facility] 11-21-2024 Evaluation + Plan note Associated Problem(s): Mixed hyperlipidemia -Continue atorvastatin [facility] 11-21-2024 Miscellaneous Notes Associated Problem(s): Mixed hyperlipidemia -Continue atorvastatin Associated Problem(s): Moderate recurrent major depression (HCC) - stable - continue Celexa 20 units daily Associated Problem(s): Primary open angle glaucoma of both eyes, mild stage -Continue brimonidine, timolol Associated Problem(s): Hypothyroidism -11/02 TSH 3.03 -Continue levothyroxine Associated Problem(s): Type 2 diabetes mellitus with hyperglycemia (HCC) -BGTs have improved, average 150 -11/02 A1C 12.9 -Continue Lispro to 15U with meals -Continue Lantus 28 units, and metformin ER 500mg daily -Accuchecks monitor trends -Hypoglycemia protocol in place Associated Problem(s): Vitamin D deficiency -11/10 Vitamin D: 26, patient likely not taking supplementation regularly -Continue daily supplement for now- 2000 units daily Associated Problem(s): Lymphedema of both lower extremities -BLE wrapped at time of exam -Unna boot treatments applied 11/17 -10 lbs weight gained since admission likely 2/2 lymphedema and improved oral intake -In-house wound care following patient while admitted Associated Problem(s): Endometrial cancer (CMS/HCC) (HCC) - lost to follow up with gyne - will need follow up - reviewed with patient today Associated Problem(s): Atrial fibrillation (HCC) -Newly diagnosed while inpatient -Currently rate controlled -11/05 TTE shows hyperdynamic LVEF >75% with increased LV wall thickness. -Started on metoprolol 50mg BID, and apixaban 5mg BID -Has hospital follow-up scheduled with [facility] Cardiology on 12/02/2024 with Carli Aldrich APRN-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 at 1000AM Associated Problem(s): Essential hypertension, benign -Overall controlled currently -Prior to admission on olmesartan, and carvedilol discontinued for now -Continue metoprolol -Has follow-up with [facility] Cardiology on 12/02 as above Associated Problem(s): Moderate aortic stenosis -Volume status difficult to assess with body habitus but denies any shortness of breath and patient reports her edema is at baseline. Murmur present on exam -11/05 TTE shows moderate aortic stenosis. Measured aortic valve peak velocity and mean gradient are decreased in the current study compared with prior study, likely from decreased stroke volume secondary to atrial fibrillation. IVC is dilated with RAP ~8 mmhg. -11/01 NT pro BNP 6800. -Monitor volume status closely - follow up with cardiology 12/02/24 Associated Problem(s): Asthma - has PRN albuterol - hasn't used it since admission Associated Problem(s): Poor sleep hygiene -continue melatonin 5mg nightly Associated Problem(s): Debility -Current status: Gait training 120 ft intervals, fww, and CGA to SBA for safety. Pt given cues for upright posture, continuous stepping, and increase step height to improve foot clearance and quality of gait for decreased fall risk with recommended fww use. -Contributing factors: hospitalization, acute illness, new onset afib -Continue PT/OT during SNF stay -Plan for discharge home alone on 11/25/24 Associated Problem(s): Cognitive decline -BIMS 05/06 - continuing to make improvements with Speech Therapy in area of cognition - Recommend outpatient follow up at the [facility] ([facility]) for formal congitive testing Associated Problem(s): Weight gain - patient has gained 10 lbs since admission - prior to admission PCP notes say she had been losing weight- they were concerned about her high blood sugars and memory loss as contributors - suspect weight gain due to improved PO intake here and lymphedema - will need close follow up at [facility] for memory loss since she's returning home alone and meal prep will continue to be a concern Associated Problem(s): Cellulitis of lower extremity - wound team started Bactrim 11/17-11/24 for bilateral LE cellulitis - both legs were very swollen and weeping per report documented in this encounter [facility] 11-21-2024 Evaluation + Plan note Associated Problem(s): Moderate recurrent major depression (HCC) - stable - continue Celexa 20 units daily [facility] 11-21-2024 Evaluation + Plan note Associated Problem(s): Primary open angle glaucoma of both eyes, mild stage -Continue brimonidine, timolol [facility] 11-21-2024 Evaluation + Plan note Associated Problem(s): Hypothyroidism -11/02 TSH 3.03 -Continue levothyroxine T [facility] 11-21-2024 Evaluation + Plan note Associated Problem(s): Type 2 diabetes mellitus with hyperglycemia (HCC) -BGTs have improved, average 150 -11/02 A1C 12.9 -Continue Lispro to 15U with meals -Continue Lantus 28 units, and metformin ER 500mg daily -Accuchecks monitor trends -Hypoglycemia protocol in place T [facility] 11-21-2024 Evaluation + Plan note Associated Problem(s): Vitamin D deficiency -11/10 Vitamin D: 26, patient likely not taking supplementation regularly -Continue daily supplement for now- 2000 units daily T [facility] 11-21-2024 Evaluation + Plan note Associated Problem(s): Lymphedema of both lower extremities -BLE wrapped at time of exam -Unna boot treatments applied 11/17 -10 lbs weight gained since admission likely 2/2 lymphedema and improved oral intake -In-house wound care following patient while admitted [facility] 11-21-2024 Evaluation + Plan note Associated Problem(s): Endometrial cancer (CMS/HCC) (HCC) - lost to follow up with gyne - will need follow up - reviewed with patient today [facility] 11-21-2024 Evaluation + Plan note Associated Problem(s): Atrial fibrillation (HCC) -Newly diagnosed while inpatient -Currently rate controlled -11/05 TTE shows hyperdynamic LVEF >75% with increased LV wall thickness. -Started on metoprolol 50mg BID, and apixaban 5mg BID -Has hospital follow-up scheduled with [facility] Cardiology on 12/02/2024 with Carli Aldrich APRN-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 at 1000AM [facility] 11-21-2024 Evaluation + Plan note Associated Problem(s): Essential hypertension, benign -Overall controlled currently -Prior to admission on olmesartan, and carvedilol discontinued for now -Continue metoprolol -Has follow-up with [facility] Cardiology on 12/02 as above T [facility] 11-21-2024 Evaluation + Plan note Associated Problem(s): Moderate aortic stenosis -Volume status difficult to assess with body habitus but denies any shortness of breath and patient reports her edema is at baseline. Murmur present on exam -11/05 TTE shows moderate aortic stenosis. Measured aortic valve peak velocity and mean gradient are decreased in the current study compared with prior study, likely from decreased stroke volume secondary to atrial fibrillation. IVC is dilated with RAP ~8 mmhg. -11/01 NT pro BNP 6800. -Monitor volume status closely - follow up with cardiology 12/02/24 [facility] 11-21-2024 Evaluation + Plan note Associated Problem(s): Asthma - has PRN albuterol - hasn't used it since admission [facility] 11-21-2024 Evaluation + Plan note Associated Problem(s): Poor sleep hygiene -continue melatonin 5mg nightly [facility] 11-21-2024 Evaluation + Plan note Associated Problem(s): Debility -Current status: Gait training 120 ft intervals, fww, and CGA to SBA for safety. Pt given cues for upright posture, continuous stepping, and increase step height to improve foot clearance and quality of gait for decreased fall risk with recommended fww use. -Contributing factors: hospitalization, acute illness, new onset afib -Continue PT/OT during SNF stay -Plan for discharge home alone on 11/25/24 [facility] 11-21-2024 Evaluation + Plan note Associated Problem(s): Cognitive decline -BIMS 05/06 - continuing to make improvements with Speech Therapy in area of cognition - Recommend outpatient follow up at the [facility] [facility]) for formal congitive testing [facility] 11-21-2024 Evaluation + Plan note Associated Problem(s): Weight gain - patient has gained 10 lbs since admission - prior to admission PCP notes say she had been losing weight- they were concerned about her high blood sugars and memory loss as contributors - suspect weight gain due to improved PO intake here and lymphedema - will need close follow up at [facility] for memory loss since she's returning home alone and meal prep will continue to be a concern [facility] 11-21-2024 Evaluation + Plan note Associated Problem(s): Cellulitis of lower extremity - wound team started Bactrim 11/17-11/24 for bilateral LE cellulitis - both legs were very swollen and weeping per report [facility] 11-21-2024 History of Present illness Narrative Images from the original note were not included. [facility] ([facility]) Discharge Summary [facility] Dameon Potter : 1955 PCP: Christy Rizzo MD Rehab Physician: Marianne Tang M.D. Rehab MARKETING ENGINEER: Araseli Can CNP Visit Date: 11/21/2024 Facility: [facility] CODE STATUS: Full Code CC: Skilled Rehabilitation Discharge Summary S/P Hospitalization for hyperglycemia, new onset afib, UTI Medication Reconciliation Follow up for hyperglycemia, cellulitis Assessment and Plan: 1. Debility Assessment & Plan: -Current status: Gait training 120 ft intervals, fww, and CGA to SBA for safety. Pt given cues for upright posture, continuous stepping, and increase step height to improve foot clearance and quality of gait for decreased fall risk with recommended fww use. -Contributing factors: hospitalization, acute illness, new onset afib -Continue PT/OT during SNF stay -Plan for discharge home alone on 11/25/24 2. Essential hypertension, benign Assessment & Plan: -Overall controlled currently -Prior to admission on olmesartan, and carvedilol discontinued for now -Continue metoprolol -Has follow-up with [facility] Cardiology on 12/02 as above 3. Persistent atrial fibrillation (HCC) Assessment & Plan: -Newly diagnosed while inpatient -Currently rate controlled -11/05 TTE shows hyperdynamic LVEF >75% with increased LV wall thickness. -Started on metoprolol 50mg BID, and apixaban 5mg BID -Has hospital follow-up scheduled with [facility] Cardiology on 12/02/2024 with Carli Aldrich APRN-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 at 1000AM 4. Type 2 diabetes mellitus with hyperglycemia, with long-term current use of insulin ([facility]) Assessment & Plan: -BGTs have improved, average 150 -11/02 A1C 12.9 -Continue Lispro to 15U with meals -Continue Lantus 28 units, and metformin ER 500mg daily -Accuchecks monitor trends -Hypoglycemia protocol in place 5. Cognitive decline Assessment & Plan: -BIMS 05/06 - continuing to make improvements with Speech Therapy in area of cognition - Recommend outpatient follow up at the [facility] ([facility] for formal congitive testing 6. Cellulitis of lower extremity, unspecified laterality Assessment & Plan: - wound team started Bactrim 11/17-11/24 for bilateral LE cellulitis - both legs were very swollen and weeping per report 7. Weight gain Assessment & Plan: - patient has gained 10 lbs since admission - prior to admission PCP notes say she had been losing weight- they were concerned about her high blood sugars and memory loss as contributors - suspect weight gain due to improved PO intake here and lymphedema - will need close follow up at [facility] for memory loss since she's returning home alone and meal prep will continue to be a concern 8. Poor sleep hygiene Assessment & Plan: -continue melatonin 5mg nightly 9. Mild intermittent asthma without complication Assessment & Plan: - has PRN albuterol - hasn't used it since admission 10. Moderate aortic stenosis Assessment & Plan: -Volume status difficult to assess with body habitus but denies any shortness of breath and patient reports her edema is at baseline. Murmur present on exam -11/05 TTE shows moderate aortic stenosis. Measured aortic valve peak velocity and mean gradient are decreased in the current study compared with prior study, likely from decreased stroke volume secondary to atrial fibrillation. IVC is dilated with RAP ~8 mmhg. -11/01 NT pro BNP 6800. -Monitor volume status closely - follow up with cardiology 12/02/24 11. Endometrial cancer (CMS/HCC) ([facility]) Assessment & Plan: - lost to follow up with gyne - will need follow up - reviewed with patient today 12. Lymphedema of both lower extremities Assessment & Plan: -BLE wrapped at time of exam -Unna boot treatments applied 11/17 -10 lbs weight gained since admission likely 2/2 lymphedema and improved oral intake -In-house wound care following patient while admitted 13. Vitamin D deficiency Assessment & Plan: -11/10 Vitamin D: 26, patient likely not taking supplementation regularly -Continue daily supplement for now- 2000 units daily 14. Acquired hypothyroidism Assessment & Plan: -11/02 TSH 3.03 -Continue levothyroxine 15. Primary open angle glaucoma of both eyes, mild stage Assessment & Plan: -Continue brimonidine, timolol 16. Moderate recurrent major depression (HCC) Assessment & Plan: - stable - continue Celexa 20 units daily 17. Mixed hyperlipidemia Assessment & Plan: -Continue atorvastatin Discontinued Medications No medications on file F/u PCP in 1-2 weeks HPI: Hospital Course: Dameon Potter is a 69 y.o. female admitted for hyperglycemia and new onset A-fib. PMHx of DMII, HTN, hypothyroidism, HLD, depression admitted to [facility] on 11/01/2024 for hyperglycemia. Patient also found to have new onset atrial fibrillation, metoprolol and apixaban started inpatient. Her urine culture was positive for E.coli was treated with IV ceftriaxone, switched to PO keflex on discharge for 1 more administration to finish a 5 day course. PT/OT recommended SNF on discharge. The patient was then transferred to [facility] for skilled rehab on 11/05/2024. Rehabilitation Course: Dameon Potter will be discharged from skilled care on 11/25/24. There have been no hospital admissions or ED visits during the skilled stay. Dameon Potter was treated for diabetes mellitus type 2, cognitive decline, debility, insomnia, lymphedema, BLE cellulitis during the skilled rehab stay. The patient will be discharged to their home with the following services [facility] Therapy/Occupational Therapy/Speech Therapy/ Home Health Aide/Domestic Violence Advocate and [facility]- Direction Home referral made. Patient and family have been educated by facility staff on home going medications and discharge instructions. Nursing has called in 4 week supply of medications to patient's pharmacy with refills to be completed by PCP. Patient to follow up with PCP in 1-2 weeks.> 30 minutes spent on discharge planning. Interval History: diabetes mellitus type 2- blood sugars in range of 80-201, average= 150, no episodes of hypoglycemia. Compliant with diet. Having some diarrhea since start of metformin. Cellulitis- legs feel ok. Tolerating antibiotic. Lymphedema-- legs have been wrapped since 11/17. No problems Past Medical History: Diagnosis Date Anxiety Asthma Atrial fibrillation ([facility]) Deficiency of nutrient elements Depression Dry eye Endometrial cancer ([facility]) ([facility]) 09/30/2020 Fatigue Gastritis GERD (gastroesophageal reflux disease) Glaucoma Glaucoma Hyperlipidemia Hypertension Hypothyroid Hypothyroidism Incontinence Intestinal malabsorption Lymph edema Morbid obesity ([facility]) Obstructive sleep apnea PMB (postmenopausal bleeding) Polycystic ovarian syndrome Psoriasis SOB (shortness of breath) on exertion Thyroglossal duct cyst Type 2 diabetes mellitus without complication ([facility]) Urinary tract infection Uterine cancer ([facility]) ([facility]) Vitamin D deficiency 05/10/2017 Zinc deficiency 06/21/2018 Allergies: Allergies Allergen Reactions Bimatoprost Other Blurred vision Doxycycline Hives Erythromycin Hives Levaquin [Levofloxacin] Hives Macrobid [Nitrofurantoin] Hives Penicillins Hives Levofloxacin In D5w Swelling oral Macrolides And Ketolides Hives 1980 Molds & Smuts Itching Mold allergy Nitrofurantoin Monohyd Macro Itching Other Itching Current Outpatient Medications Medication Sig Dispense Refill albuterol 108 (90 Base) MCG/ACT inhaler Inhale 2 puffs every 6 hours as needed. apixaban (Eliquis) 5 MG tablet Take 1 tablet (5 mg) by mouth 2 times daily. 60 tablet 0 atorvastatin (Lipitor) 40 MG tablet Take by mouth daily. brimonidine (AlphaGAN P) 0.1 % ophthalmic solution Administer 1 drop into both eyes 3 times a day. cholecalciferol (Vitamin D-3) 25 MCG (1000 UT) capsule Take 50 mcg by mouth daily. citalopram (CeleXA) 20 MG tablet Take 20 mg by mouth daily. insulin glargine (Lantus) 100 UNIT/ML injection Inject 24 Units under the skin Nightly. (Patient taking differently: Inject 28 Units under the skin Nightly.) 10 mL 12 Insulin Lispro (Humalog) 100 UNIT/ML solution injection Inject 8 Units under the skin 3 times daily (with meals). (Patient taking differently: Inject 15 Units under the skin 3 times daily (with meals).) 10 mL 12 levothyroxine (Synthroid, Levoxyl) 175 MCG tablet Take 1 tablet (175 mcg) by mouth every morning (before breakfast). 90 tablet 3 melatonin 5 MG tablet Take 5 mg by mouth Nightly. metFORMIN, OSM, (Fortamet) 500 MG 24 hr tablet Take 500 mg by mouth daily. Do not crush, chew, or split. metoprolol tartrate (Lopressor) 50 MG tablet Take 1 tablet (50 mg) by mouth 2 times daily. 60 tablet 11 Multiple Vitamin (multivitamin) tablet Take 1 tablet by mouth daily. timolol (Timoptic) 0.5 % ophthalmic solution Administer 1 drop into both eyes in the morning and 1 drop in the evening. BD Insulin Syringe U/F 30G X 1/2 0.5 ML misc 2 times daily with insulin 200 each 3 Continuous Glucose Sensor (FreeStyle Satya 3 Sensor) misc 1 Device every 14 (fourteen) days. 7 each 3 EPINEPHRINE HCL, ANAPHYLAXIS, IM Inject into the shoulder, thigh, or buttocks. FREESTYLE LITE test strip 1 each by Other route 4 times daily. As directed 400 each 3 glucose 4 g chewable tablet Chew 16 g if needed for low blood sugar. insulin pen needle 32G x 4 mm misc Use as instructed 2 times daily 200 each 3 No current facility-administered medications for this visit. Past Surgical History: Procedure Laterality Date CATARACT EXTRACTION Bilateral CHOLECYSTECTOMY 01/29/2018 w/ LRYGB and Umbilical Hernia repair - [facility] DILATION AND CURETTAGE OF UTERUS 09/03/2020 with hysteroscopy GASTRIC BYPASS 01/29/2018 LRYGB w/ Lap Aggie and Umbilical Hernia repair, [facility] GASTRIC BYPASS HYSTERECTOMY 09/30/2020 [facility]; Dr. Cuauhtemoc Stubbs MOUTH SURGERY gum removal to expose wisdom teeth THYROGLOSSAL DUCT EXCISION [facility]- Dr. Vin Keating THYROIDECTOMY UMBILICAL HERNIA REPAIR 01/29/2018 w/ LRYGB and Lap Aggie - [facility] UPPER GASTROINTESTINAL ENDOSCOPY 03/20/2017 pre op, [facility] WISDOM TOOTH EXTRACTION 2013 [facility] Social History Socioeconomic History Marital status: Single Tobacco Use Smoking status: Never Smokeless tobacco: Never Substance and Sexual Activity Alcohol use: No Drug use: No Social Drivers of Health Transportation Needs: Unmet Transportation Needs (11/02/2024) PRAPARE - Transportation Lack of Transportation (Medical): Yes Lack of Transportation (Non-Medical): Yes Intimate Partner Violence: Not At Risk (11/02/2024) Humiliation, Afraid, Rape, and Kick questionnaire Fear of Current or Ex-Partner: No Emotionally Abused: No Physically Abused: No Sexually Abused: No Housing Stability: Low Risk (11/05/2024) Housing Stability Vital Sign Unable to Pay for Housing in the Last Year: No Number of Times Moved in the Last Year: 0 Homeless in the Last Year: No Recent Concern: Housing Stability - High Risk (11/02/2024) Housing Stability Vital Sign Unable to Pay for Housing in the Last Year: Yes Homeless in the Last Year: Yes Family History Problem Relation Name Age of Onset Stroke Father Obesity Mother dementia Diabetes Mother dementia High Blood Pressure Mother dementia Heart disease Mother dementia Stroke Paternal Grandfather High Blood Pressure Father Diabetes Father Diabetes Paternal Grandfather Heart attack Paternal Grandmother Colon cancer Neg Hx High Blood Pressure Brother Cancer Father bladder Obesity Father Family Status Relation Name Status Father (Not Specified) Mother dementia Alive PGF (Not Specified) PGM Neg Hx (Not Specified) Brother (Not Specified) No partnership data on file Review of Systems Constitutional: Negative for activity change and appetite change. Respiratory: Negative for shortness of breath. Cardiovascular: Negative for leg swelling. Gastrointestinal: Positive for diarrhea. Negative for constipation. Genitourinary: Negative for difficulty urinating. Musculoskeletal: Negative for arthralgias, gait problem and myalgias. Neurological: Negative for weakness. Psychiatric/Behavioral: Negative for confusion and sleep disturbance. The patient is not nervous/anxious. Vitals: 145/78, 61, 98.1 degrees, 15, 98%, 221.8 pounds Wt Readings from Last 3 Encounters: 11/18/24 219 lb (99.3 kg) 11/12/24 210 lb 3.2 oz (95.3 kg) 11/10/24 210 lb 3.2 oz (95.3 kg) BIMS: 05/06 PHQ-9: 09/18 Physical Exam Constitutional: Appearance: She is obese. She is not ill-appearing. HENT: Mouth/Throat: Mouth: Mucous membranes are moist. Pharynx: Oropharynx is clear. Eyes: Extraocular Movements: Extraocular movements intact. Pupils: Pupils are equal, round, and reactive to light. Comments: Wears glasses Cardiovascular: Rate and Rhythm: Normal rate. Rhythm irregular. Heart sounds: Murmur heard. Pulmonary: Effort: Pulmonary effort is normal. Breath sounds: Normal breath sounds. Comments: On RA Abdominal: General: Abdomen is flat. Palpations: Abdomen is soft. Hernia: A hernia is present. Comments: LBM 5/2 Musculoskeletal: Right lower leg: Edema present. Left lower leg: Edema present. Skin: Comments: Unna boots in place Neurological: Mental Status: She is alert. Psychiatric: Mood and Affect: Mood normal. Affect is flat. Behavior: Behavior normal. Cognition and Memory: Memory is impaired. Recent labs: 11/10 CMP: Glucose 172, BUN 30, GFR 55, Ca 8.2, albumin 2.8 11/10 CBC: RBC 3.77, Hgb 11.4, Hct 33.2 11/10 Vitamin D: 26 Home Care Certification Documentation [id number] CERTIFICATION OF HOMEBOUND STATUS: Ms. Potter is homebound due to the following reasons: Require significant assistance of another person to leave home due to weakness caused by debilitation for that reason, any absence from the home requires of her considerable and taxing effort. Primary reason patient needs Home Care: Debility Home Care Services: she needs following home services: [facility], PT, OT, Home Health Aide, Gallery Director, and Speech Therapy Reason for Referral to Home Health by Service: -Vital signs monitoring. Notify provider if SBP more than 160 or less than 90, heart rate more than 100 or less than 50, Temp at least 100.3F and above, O2 sat less than 92%, RR more than 20, -Consult physical therapy for evaluation and treatment, -Consult Occupational Therapy for evaluation and treatment, -Consult speech-language pathology forcognitive impairment, -Consult medical csr fortransportation needs, -Consult home health aide for assistance with ADLs, -Wound care as follows:1. Left Lower Leg: Cleanse with soap and water, pat dry, apply unna boot, wrap with kerlix, and wrap with coban weekly and PRN DO NOT REMOVE; WOUND- Right Lower Leg Front: Cleanse with hibiclens, pat dry, apply unna boot, wrap with kerlix, and wrap with coban weekly and PRN. DO NOT REMOVE; WOUND- Right Buttock Upper/Lower: Cleanse with NS, pat dry, and apply Triad every shift and PRN, and -Disease process education Clinical findings that led to the referral for home health: cannot walk further than 125 feet, Debility Encounter Date when physician or allowed non physician practitioner saw patient: 11/21/24 Marianne Tang MD 11/21/24 2:22 PM (Please note: Portions of this note were completed with a voice recognition program. Efforts were made to edit the dictations but occasionally words and phrases are mis-transcribed.) ____ COMPLEXITY OF FOLLOW UP: Severe complexity: Follow-up within 7 calendar days (26625) FOLLOW UP TESTING, PENDING RESULTS OR REFERRALS AT TRANSITIONAL CARE VISIT: Yes, describe: Needs follow-up appointments with [facility], endocrinology and Gyne-Onc Follow up with Christy Rizzo MD To be scheduled by patient Notification (telephone encounter) to PCP initiated: No INSTRUCTIONS TO MA/SW: Please call patient on day after discharge (must document patient contacted within 2 business days of discharge). FOLLOW UP QUESTIONS FOR MA/SW: 1. Did you get medications filled and taking them as instructed from discharge? 2. Are you following your discharge instructions from your hospital stay? 3. Please confirm patient is scheduled for a follow upappointment within the above time frame. documented in this encounter [facility] 11-19-2024 Telephone encounter Note Letter mailed to patient [facility] 11-19-2024 Miscellaneous Notes Letter mailed to patient Second attempt to reach patient no answer/unable to leave voicemail. Attempted to reach patient no answer/unable to leave voicemail. At this time it is better for the skilled team to care for her glucose levels She will need a follow apt for an extended visit as soon as she can be scheduled - I know it will be months so we should make apt now She can send in logs with what medications she is taking once discharged from [facility] S: pt calling [facility] with BG problem B: today A: pt has not been seen in office since 03/26/24. Fell in April and has not been taking insulin or checking BG since then, does not remember when the last time was. Pt states she feels out of it and not much energy. Does live alone but has a friend to come check on her. Pt states she is on palliative care, they come to see her once per month. Does not know their name. Call back to pt at 1340 after pt was going to get a home glucometer with friend. BG check was 475 and 563, just a few minutes ago. Does have Lantus at home, does not believe she has Humalog. Does feel slightly weak, slightly confused. Denies vomiting/diarrhea. Denies recent illness/fever. R: RN spoke with Dr. Robison who advised for pt to be evaluated in ER. RN relayed this information to pt and states their friend that is with them with take them to [facility] ER. Reason for Disposition Blood glucose > 500 mg/dL (27.8 mmol/L) Protocols used: Diabetes - High Blood [id number] documented in this encounter [facility] 11-18-2024 Evaluation + Plan note Associated Problem(s): Lymphedema of both lower extremities -BLE wrapped at time of exam -Unna boot treatments applied yesterday, to remain in place x1 week -6lbs weight gained since admission likely 2/2 lymphedema, will follow trends -Bactrim 800-160 BID x7 day for cellulitis -In-house wound care following patient while admitted [facility] 11-18-2024 Miscellaneous Notes Associated Problem(s): Lymphedema of both lower extremities -BLE wrapped at time of exam -Unna boot treatments applied yesterday, to remain in place x1 week -6lbs weight gained since admission likely 2/2 lymphedema, will follow trends -Bactrim 800-160 BID x7 day for cellulitis -In-house wound care following patient while admitted Associated Problem(s): Type 2 diabetes mellitus with hyperglycemia (HCC) -BGTs have improved, but still elevated. -11/02 A1C 12.9 -Increase Lispro to 15U with meals -Continue Lantus 28 units, and metformin ER 500mg daily -Accuchecks monitor trends -Hypoglycemia protocol in place -Could consider increase in Lantus if BGT remain elevated documented in this encounter [facility] 11-18-2024 Evaluation + Plan note Associated Problem(s): Type 2 diabetes mellitus with hyperglycemia (HCC) -BGTs have improved, but still elevated. -11/02 A1C 12.9 -Increase Lispro to 15U with meals -Continue Lantus 28 units, and metformin ER 500mg daily -Accuchecks monitor trends -Hypoglycemia protocol in place -Could consider increase in Lantus if BGT remain elevated [facility] 11-18-2024 History of Present illness Narrative Images from the original note were not included. [facility] ([facility]) Follow-up Visit [facility] Dameon Xavier Rossbi : 1955 Visit Date: 11/18/2024 Facility: [facility] CC: Follow-up Note for lymphedema, weight gain, DM2 Assessment and Plan: 1. Type 2 diabetes mellitus with hyperglycemia, with long-term current use of insulin (HCC) Assessment & Plan: -BGTs have improved, but still elevated. -11/02 A1C 12.9 -Increase Lispro to 15U with meals -Continue Lantus 28 units, and metformin ER 500mg daily -Accuchecks monitor trends -Hypoglycemia protocol in place 2. Lymphedema of both lower extremities Assessment & Plan: -BLE wrapped at time of exam -Unna boot treatments applied yesterday, to remain in place x1 week -6lbs weight gained since admission likely 2/2 lymphedema, will follow trends -Bactrim 800-160 BID x7 day for cellulitis -In-house wound care following patient while admitted Follow up: 3-7 days, sooner if problem arises HPI: The patient is known to me. Admitted to [facility] on 11/05 following hospitalization for hyperglycemia On exam patient is seen sitting upright in wheelchair watching television upon entry to the room. Bilateral lower extremities dressed with Unna boots date of application is 11/17. Patient states that her legs feel so much better since application yesterday. She also reports that she is being treated for cellulitis. I explained to patient that her blood sugars still remain elevated and I have increased her mealtime insulin to 15 units. I educated patient that blood sugar control is important in setting of infection, patient voices understanding. She tells me that her therapy is going well, and feels she is making progress. She denies other questions or concerns on this date. HistoryReviewed: Past Medical History: Diagnosis Date Anxiety Asthma Atrial fibrillation ([facility]) Deficiency of nutrient elements Depression Dry eye Endometrial cancer (CMS/HCC) ([facility]) 09/30/2020 Fatigue Gastritis GERD (gastroesophageal reflux disease) Glaucoma Glaucoma Hyperlipidemia Hypertension Hypothyroid Hypothyroidism Incontinence Intestinal malabsorption Lymph edema Morbid obesity ([facility]) Obstructive sleep apnea PMB (postmenopausal bleeding) Polycystic ovarian syndrome Psoriasis SOB (shortness of breath) on exertion Thyroglossal duct cyst Type 2 diabetes mellitus without complication ([facility]) Urinary tract infection Uterine cancer ([facility]) ([facility]) Vitamin D deficiency 05/10/2017 Zinc deficiency 06/21/2018 Allergies: Allergies Allergen Reactions Bimatoprost Other Blurred vision Doxycycline Hives Erythromycin Hives Levaquin [Levofloxacin] Hives Macrobid [Nitrofurantoin] Hives Penicillins Hives Levofloxacin In D5w Swelling oral Macrolides And Ketolides Hives 1980 Molds & Smuts Itching Mold allergy Nitrofurantoin Monohyd Macro Itching Other Itching Current Outpatient Medications Medication Sig Dispense Refill albuterol 108 (90 Base) MCG/ACT inhaler Inhale 2 puffs every 6 hours as needed. apixaban (Eliquis) 5 MG tablet Take 1 tablet (5 mg) by mouth 2 times daily. 60 tablet 0 atorvastatin (Lipitor) 40 MG tablet Take by mouth daily. BD Insulin Syringe U/F 30G X 1/2 0.5 ML misc 2 times daily with insulin 200 each 3 brimonidine (AlphaGAN P) 0.1 % ophthalmic solution Administer 1 drop into both eyes 3 times a day. cholecalciferol (Vitamin D-3) 25 MCG (1000 UT) capsule Take 50 mcg by mouth daily. citalopram (CeleXA) 20 MG tablet Take 20 mg by mouth daily. Continuous Glucose Sensor (FreeStyle Satya 3 Sensor) misc 1 Device every 14 (fourteen) days. 7 each 3 EPINEPHRINE HCL, ANAPHYLAXIS, IM Inject into the shoulder, thigh, or buttocks. FREESTYLE LITE test strip 1 each by Other route 4 times daily. As directed 400 each 3 glucose 4 g chewable tablet Chew 16 g if needed for low blood sugar. insulin glargine (Lantus) 100 UNIT/ML injection Inject 24 Units under the skin Nightly. 10 mL 12 Insulin Lispro (Humalog) 100 UNIT/ML solution injection Inject 8 Units under the skin 3 times daily (with meals). 10 mL 12 insulin pen needle 32G x 4 mm misc Use as instructed 2 times daily 200 each 3 levothyroxine (Synthroid, Levoxyl) 175 MCG tablet Take 1 tablet (175 mcg) by mouth every morning (before breakfast). 90 tablet 3 metoprolol tartrate (Lopressor) 50 MG tablet Take 1 tablet (50 mg) by mouth 2 times daily. 60 tablet 11 Multiple Vitamin (multivitamin) tablet Take 1 tablet by mouth daily. timolol (Timoptic) 0.5 % ophthalmic solution Administer 1 drop into both eyes in the morning and 1 drop in the evening. No current facility-administered medications for this visit. Review of Systems Constitutional: Positive for fatigue. Negative for chills and fever. HENT: Negative for congestion and rhinorrhea. Respiratory: Negative for cough and shortness of breath. Cardiovascular: Positive for leg swelling. Negative for chest pain and palpitations. Gastrointestinal: Positive for diarrhea. Negative for abdominal distention, constipation, nausea and vomiting. Genitourinary: Negative for dysuria and urgency. Musculoskeletal: Negative for arthralgias and back pain. Neurological: Positive for weakness (generalized, improving). Psychiatric/Behavioral: Positive for confusion. Negative for agitation. Vitals: BP 130/68 Pulse 72 Temp 36.2 C (97.2 F) Resp 18 Wt 219 lb (99.3 kg) SpO2 96% BMI 35.35 kg/m Physical Exam Constitutional: Appearance: She is obese. She is ill-appearing. HENT: Mouth/Throat: Mouth: Mucous membranes are moist. Pharynx: Oropharynx is clear. Eyes: Extraocular Movements: Extraocular movements intact. Pupils: Pupils are equal, round, and reactive to light. Comments: Wears glasses Cardiovascular: Rate and Rhythm: Normal rate. Rhythm irregular. Heart sounds: Murmur heard. Pulmonary: Effort: Pulmonary effort is normal. Breath sounds: Normal breath sounds. Comments: On RA Abdominal: General: Abdomen is flat. Palpations: Abdomen is soft. Hernia: A hernia is present. Comments: LBM 11/18 Musculoskeletal: Right lower leg: Edema present. Left lower leg: Edema present. Skin: Comments: Unna boots in place Neurological: Mental Status: She is alert. Psychiatric: Mood and Affect: Affect is flat. Cognition and Memory: Memory is impaired. Recent Labs: 11/10 CMP: Glucose 172, BUN 30, GFR 55, Ca 8.2, albumin 2.8 11/10 CBC: RBC 3.77, Hgb 11.4, Hct 33.2 11/10 Vitamin D: 26 I spent total time of 35 minutes face to face with the patient and/or family discussing the diagnosis and importance of compliance with the treatment plan as well as documenting on the day of the visit. In addition, that total time includes the following: -Reviewing previous notes, -Reviewing labs, -Obtaining and/or reviewing separately obtained history, -Ordering prescription medications, tests and procedures, -Communicating results to the patient/family/caregiver, -Counseling/educating the patient/family/caregiver, -Documenting clinical information in the patients electronic record, -Coordination of care for the patient, and -Performing a medically appropriate exam and/or evaluation (Please note: Portions of this note were completed with a voice recognition program. Efforts were made to edit the dictations but occasionally words and phrases are mis-transcribed.) documented in this encounter [facility] 11-13-2024 Telephone encounter Note Second attempt to reach patient no answer/unable to leave voicemail. [facility] 11-12-2024 Evaluation + Plan note Associated Problem(s): Vitamin D deficiency -11/10 Vitamin D: 26, patient likely not taking supplementation regularly -Continue daily supplement for now -Will need extensive education on medications prior to discharge [facility] 11-12-2024 Note -11/10 Vitamin D: 26, patient likely not taking supplementation regularly -Continue daily supplement for now -Will need extensive education on medications prior to discharge [facility] 11-12-2024 Miscellaneous Notes Associated Problem(s): Vitamin D deficiency -11/10 Vitamin D: 26, patient likely not taking supplementation regularly -Continue daily supplement for now -Will need extensive education on medications prior to discharge Associated Problem(s): Type 2 diabetes mellitus with hyperglycemia (HCC) -BGTs remain elevated despite increase to prandial insulin -11/02 A1C 12.9 -Will add metformin ER 500mg daily, if patient tolerates could increase to 1000mg daily -Increase Lispro to 12U with meals -Continue Lantus 28 units -Accuchecks monitor trends -Hypoglycemia protocol in place Associated Problem(s): Lymphedema of both lower extremities -Swelling noticeable today on exam, especially to LLE. Seen today by wound care AVIONICS SYSTEMS ENGINEER, awaiting orders from wound MARKETING ENGINEER per documentation -BLE follows with wound care center per patient -In-house wound care following patient while admitted documented in this encounter [facility] 11-12-2024 Evaluation + Plan note Associated Problem(s): Type 2 diabetes mellitus with hyperglycemia (HCC) -BGTs remain elevated despite increase to prandial insulin -11/02 A1C 12.9 -Will add metformin ER 500mg daily, if patient tolerates could increase to 1000mg daily -Increase Lispro to 12U with meals -Continue Lantus 28 units -Accuchecks monitor trends -Hypoglycemia protocol in place [facility] 11-12-2024 Evaluation + Plan note Associated Problem(s): Lymphedema of both lower extremities -Swelling noticeable today on exam, especially to LLE. Seen today by wound care AVIONICS SYSTEMS ENGINEER, awaiting orders from wound MARKETING ENGINEER per documentation -BLE follows with wound care center per patient -In-house wound care following patient while admitted [facility] 11-12-2024 History of Present illness Narrative Images from the original note were not included. [facility] ([facility]) Follow-up Visit [facility] Dameon Potter : 1955 Visit Date: 11/12/2024 Facility: [employer] CC: Follow-up Note for DM2, lymphedema Assessment and Plan: 1. Lymphedema of both lower extremities Assessment & Plan: -Swelling noticeable today on exam, especially to LLE. Seen today by wound care AVIONICS SYSTEMS ENGINEER, awaiting orders from wound MARKETING ENGINEER per documentation -BLE follows with wound care center per patient -In-house wound care following patient while admitted 2. Type 2 diabetes mellitus with hyperglycemia, with long-term current use of insulin (HCC) Assessment & Plan: -BGTs remain elevated despite increase to prandial insulin -11/02 A1C 12.9 -Will add metformin ER 500mg daily, if patient tolerates could increase to 1000mg daily -Increase Lispro to 12U with meals -Continue Lantus 28 units -Accuchecks monitor trends -Hypoglycemia protocol in place 3. Vitamin D deficiency Assessment & Plan: -11/10 Vitamin D: 26, patient likely not taking supplementation regularly -Continue daily supplement for now -Will need extensive education on medications prior to discharge Follow up: 3-7 days, sooner if problem arises HPI: The patient is known to me. Admitted to [facility] on 11/05 following hospitalization for hyperglycemia Informed by nursing that mela Pickett, called into facility stating the patient had voiced concerns to her regarding her lymphedema, elevated BGTs and pressure wound to coccyx. On exam patient is sitting in recliner, watching television in no acute distress. She recently finished working with [employer]. Discussed with patient that I have been monitoring BGTs closely and plan to increase her meal time insulin to 12U. She states, I am not sure that insulin will even do anything, I may as well not take it. Educated patient that she was not administering insulin as prescribed at home which led to hospitalization, her BGT was 617 on admission. She was surprised to hear this. Discussed further recommendation to begin metformin as this can assist with BGT control due to her history of DM2 and PCOS . She is agreeable to this. Advised case management to discuss concerns regarding wound care with wound care AVIONICS SYSTEMS ENGINEER as in-house wound team is managing her wounds. Per facility EMR wound care AVIONICS SYSTEMS ENGINEER is awaiting orders from MARKETING ENGINEER. Call placed to mela Pickett, introduced self and role, provided medical update. All questions answered at time of call. Call duration 15 min. HistoryReviewed: Past Medical History: Diagnosis Date Anxiety Asthma Atrial fibrillation ([facility]) Deficiency of nutrient elements Depression Dry eye Endometrial cancer ([facility]) ([facility]) 09/30/2020 Fatigue Gastritis GERD (gastroesophageal reflux disease) Glaucoma Glaucoma Hyperlipidemia Hypertension Hypothyroid Hypothyroidism Incontinence Intestinal malabsorption Lymph edema Morbid obesity ([facility]) Obstructive sleep apnea PMB (postmenopausal bleeding) Polycystic ovarian syndrome Psoriasis SOB (shortness of breath) on exertion Thyroglossal duct cyst Type 2 diabetes mellitus without complication ([facility]) Urinary tract infection Uterine cancer ([facility]) ([facility]) Vitamin D deficiency 05/10/2017 Zinc deficiency 06/21/2018 Allergies: Allergies Allergen Reactions Bimatoprost Other Blurred vision Doxycycline Hives Erythromycin Hives Levaquin [Levofloxacin] Hives Macrobid [Nitrofurantoin] Hives Penicillins Hives Levofloxacin In D5w Swelling oral Macrolides And Ketolides Hives 1980 Molds & Smuts Itching Mold allergy Nitrofurantoin Monohyd Macro Itching Other Itching Current Outpatient Medications Medication Sig Dispense Refill albuterol 108 (90 Base) MCG/ACT inhaler Inhale 2 puffs every 6 hours as needed. apixaban (Eliquis) 5 MG tablet Take 1 tablet (5 mg) by mouth 2 times daily. 60 tablet 0 atorvastatin (Lipitor) 40 MG tablet Take by mouth daily. BD Insulin Syringe U/F 30G X 1/2 0.5 ML misc 2 times daily with insulin 200 each 3 brimonidine (AlphaGAN P) 0.1 % ophthalmic solution Administer 1 drop into both eyes 3 times a day. cholecalciferol (Vitamin D-3) 25 MCG (1000 UT) capsule Take 50 mcg by mouth daily. citalopram (CeleXA) 20 MG tablet Take 20 mg by mouth daily. Continuous Glucose Sensor (FreeStyle Satya 3 Sensor) misc 1 Device every 14 (fourteen) days. 7 each 3 EPINEPHRINE HCL, ANAPHYLAXIS, IM Inject into the shoulder, thigh, or buttocks. FREESTYLE LITE test strip 1 each by Other route 4 times daily. As directed 400 each 3 glucose 4 g chewable tablet Chew 16 g if needed for low blood sugar. insulin glargine (Lantus) 100 UNIT/ML injection Inject 24 Units under the skin Nightly. 10 mL 12 Insulin Lispro (Humalog) 100 UNIT/ML solution injection Inject 8 Units under the skin 3 times daily (with meals). 10 mL 12 insulin pen needle 32G x 4 mm misc Use as instructed 2 times daily 200 each 3 levothyroxine (Synthroid, Levoxyl) 175 MCG tablet Take 1 tablet (175 mcg) by mouth every morning (before breakfast). 90 tablet 3 metoprolol tartrate (Lopressor) 50 MG tablet Take 1 tablet (50 mg) by mouth 2 times daily. 60 tablet 11 Multiple Vitamin (multivitamin) tablet Take 1 tablet by mouth daily. timolol (Timoptic) 0.5 % ophthalmic solution Administer 1 drop into both eyes in the morning and 1 drop in the evening. No current facility-administered medications for this visit. Review of Systems Constitutional: Negative for chills, fatigue and fever. HENT: Negative for congestion and rhinorrhea. Respiratory: Negative for cough and shortness of breath. Cardiovascular: Positive for leg swelling. Negative for chest pain and palpitations. Gastrointestinal: Negative for constipation, diarrhea, nausea and vomiting. Genitourinary: Negative for dysuria, hematuria and urgency. Musculoskeletal: Negative for arthralgias. Skin: Positive for wound (pressure wound to buttocks). Neurological: Positive for weakness (generalized, improving). Psychiatric/Behavioral: Positive for confusion. Negative for agitation. Vitals: BP 128/64 Pulse 64 Temp 36.7 C (98 F) Resp 16 Wt 210 lb 3.2 oz (95.3 kg) SpO2 97% BMI 33.93 kg/m Physical Exam Constitutional: Appearance: She is obese. She is ill-appearing. Eyes: Comments: Wears glasses Cardiovascular: Rate and Rhythm: Normal rate. Rhythm irregular. Heart sounds: Murmur heard. Abdominal: General: Bowel sounds are normal. Hernia: A hernia is present. Neurological: Mental Status: She is alert. Recent Labs: 11/10 CMP: Glucose 172, BUN 30, GFR 55, Ca 8.2, albumin 2.8 11/10 CBC: RBC 3.77, Hgb 11.4, Hct 33.2 11/10 Vitamin D: 26 I spent total time of 50 minutes face to face with the patient and/or family discussing the diagnosis and importance of compliance with the treatment plan as well as documenting on the day of the visit. In addition, that total time includes the following: -Reviewing previous notes, -Reviewing labs, -Obtaining and/or reviewing separately obtained history, -Ordering prescription medications, tests and procedures, -Communicating results to the patient/family/caregiver, -Counseling/educating the patient/family/caregiver, -Documenting clinical information in the patients electronic record, and -Coordination of care for the patient (Please note: Portions of this note were completed with a voice recognition program. Efforts were made to edit the dictations but occasionally words and phrases are mis-transcribed.) documented in this encounter [facility] 11-12-2024 Telephone encounter Note Attempted to reach patient no answer/unable to leave voicemail. [facility] 11-10-2024 Evaluation + Plan note Associated Problem(s): Poor sleep hygiene -Schedule melatonin 5mg nightly [facility] 11-10-2024 Evaluation + Plan note Associated Problem(s): Debility -Current status: Gait training 125 ft intervals, fww, and cga for safety. FWW recommended at this time secondary to improved distance and tolerance to task. Pt given cues for reciprocal pattenr for continuous stepping with pt able to demo carryover after initially starting with step to step pattern. Stairs: pt completing 3 steps B rial and cga for safety -Contributing factors: hospitalization, acute illness, new onset afib -Continue PT/OT during SNF stay -SW to follow for discharge planning [facility] 11-10-2024 Miscellaneous Notes Associated Problem(s): Poor sleep hygiene -Schedule melatonin 5mg nightly Associated Problem(s): Debility -Current status: Gait training 125 ft intervals, fww, and cga for safety. FWW recommended at this time secondary to improved distance and tolerance to task. Pt given cues for reciprocal pattenr for continuous stepping with pt able to demo carryover after initially starting with step to step pattern. Stairs: pt completing 3 steps B rial and cga for safety -Contributing factors: hospitalization, acute illness, new onset afib -Continue PT/OT during SNF stay -SW to follow for discharge planning Associated Problem(s): Type 2 diabetes mellitus with hyperglycemia (HCC) -BGTs remain elevated -11/02 A1C 12.9 -Increase Lispro to 10U with meals -Continue Lantus 28 units -Could consider addition of metformin as could help with insulin resistance 2/2 to PCOS -Accuchecks monitor trends -Hypoglycemia protocol in place documented in this encounter [facility] 11-10-2024 Evaluation + Plan note Associated Problem(s): Type 2 diabetes mellitus with hyperglycemia (HCC) -BGTs remain elevated -11/02 A1C 12.9 -Increase Lispro to 10U with meals -Continue Lantus 28 units -Could consider addition of metformin as could help with insulin resistance 2/2 to PCOS -Accuchecks monitor trends -Hypoglycemia protocol in place [facility] 11-10-2024 History of Present illness Narrative Images from the original note were not included. [facility] (SNF) Follow-up Visit [facility] Dameon Potter : 1955 Visit Date: 11/10/2024 Facility: [facility] CC: Follow-up Note for DMII Assessment and Plan: 1. Type 2 diabetes mellitus with hyperglycemia, with long-term current use of insulin (HCC) Assessment & Plan: -BGTs remain elevated -11/02 A1C 12.9 -Increase Lispro to 10U with meals -Continue Lantus 28 units -Could consider addition of metformin as could help with insulin resistance 2/2 to PCOS -Accuchecks monitor trends -Hypoglycemia protocol in place 2. Debility Assessment & Plan: -Current status: Gait training 125 ft intervals, fww, and cga for safety. FWW recommended at this time secondary to improved distance and tolerance to task. Pt given cues for reciprocal pattenr for continuous stepping with pt able to demo carryover after initially starting with step to step pattern. Stairs: pt completing 3 steps B rial and cga for safety -Contributing factors: hospitalization, acute illness, new onset afib -Continue PT/OT during SNF stay -SW to follow for discharge planning 3. Poor sleep hygiene Assessment & Plan: -Schedule melatonin 5mg nightly Follow up: 3-7 days, sooner if problem arises HPI: The patient is known to me. Admitted to [facility] on 11/05 following hospitalization for hyperglycemia On exam patient is seen sitting eating lunch, in no acute distress. She reports that she is feel well today, and thought that her therapy session went okay. Encouragement given to continue with therapy, and even 1% improvement is better than no improvement. She tells me she is worried about falling, especially because of her new medications. She was unable to recall Eliquis. Did educate that Eliquis does put her at risk for bleeding, and safety awareness is important but to not allow fear to get in the way of her progress. I also informed the patient that despite increase to insulin regimen BGT remains elevated and mealtime insulin will be increased today. She voiced understanding. She endorses difficulty sleeping as well. HistoryReviewed: Past Medical History: Diagnosis Date Anxiety Asthma Atrial fibrillation ([facility]) Deficiency of nutrient elements Depression Dry eye Endometrial cancer ([facility]) ([facility]) 09/30/2020 Fatigue Gastritis GERD (gastroesophageal reflux disease) Glaucoma Glaucoma Hyperlipidemia Hypertension Hypothyroid Hypothyroidism Incontinence Intestinal malabsorption Lymph edema Morbid obesity ([facility]) Obstructive sleep apnea PMB (postmenopausal bleeding) Polycystic ovarian syndrome Psoriasis SOB (shortness of breath) on exertion Thyroglossal duct cyst Type 2 diabetes mellitus without complication ([facility]) Urinary tract infection Uterine cancer ([facility]) ([facility]) Vitamin D deficiency 05/10/2017 Zinc deficiency 06/21/2018 Allergies: Allergies Allergen Reactions Bimatoprost Other Blurred vision Doxycycline Hives Erythromycin Hives Levaquin [Levofloxacin] Hives Macrobid [Nitrofurantoin] Hives Penicillins Hives Levofloxacin In D5w Swelling oral Macrolides And Ketolides Hives 1980 Molds & Smuts Itching Mold allergy Nitrofurantoin Monohyd Macro Itching Other Itching Current Outpatient Medications Medication Sig Dispense Refill albuterol 108 (90 Base) MCG/ACT inhaler Inhale 2 puffs every 6 hours as needed. apixaban (Eliquis) 5 MG tablet Take 1 tablet (5 mg) by mouth 2 times daily. 60 tablet 0 atorvastatin (Lipitor) 40 MG tablet Take by mouth daily. BD Insulin Syringe U/F 30G X 1/2 0.5 ML misc 2 times daily with insulin 200 each 3 brimonidine (AlphaGAN P) 0.1 % ophthalmic solution Administer 1 drop into both eyes 3 times a day. cholecalciferol (Vitamin D-3) 25 MCG (1000 UT) capsule Take 50 mcg by mouth daily. citalopram (CeleXA) 20 MG tablet Take 20 mg by mouth daily. Continuous Glucose Sensor (FreeStyle Satya 3 Sensor) misc 1 Device every 14 (fourteen) days. 7 each 3 EPINEPHRINE HCL, ANAPHYLAXIS, IM Inject into the shoulder, thigh, or buttocks. FREESTYLE LITE test strip 1 each by Other route 4 times daily. As directed 400 each 3 glucose 4 g chewable tablet Chew 16 g if needed for low blood sugar. insulin glargine (Lantus) 100 UNIT/ML injection Inject 24 Units under the skin Nightly. 10 mL 12 Insulin Lispro (Humalog) 100 UNIT/ML solution injection Inject 8 Units under the skin 3 times daily (with meals). 10 mL 12 insulin pen needle 32G x 4 mm misc Use as instructed 2 times daily 200 each 3 levothyroxine (Synthroid, Levoxyl) 175 MCG tablet Take 1 tablet (175 mcg) by mouth every morning (before breakfast). 90 tablet 3 metoprolol tartrate (Lopressor) 50 MG tablet Take 1 tablet (50 mg) by mouth 2 times daily. 60 tablet 11 Multiple Vitamin (multivitamin) tablet Take 1 tablet by mouth daily. timolol (Timoptic) 0.5 % ophthalmic solution Administer 1 drop into both eyes in the morning and 1 drop in the evening. No current facility-administered medications for this visit. Review of Systems Constitutional: Positive for fatigue. Negative for chills and fever. HENT: Negative for congestion and rhinorrhea. Respiratory: Negative for cough and shortness of breath. Cardiovascular: Positive for leg swelling. Negative for chest pain and palpitations. Gastrointestinal: Negative for constipation, diarrhea, nausea and vomiting. Genitourinary: Negative for dysuria and hematuria. Neurological: Positive for weakness (generalized). Psychiatric/Behavioral: Positive for confusion. Negative for agitation. Vitals: BP 134/72 Pulse 61 Temp 36.9 C (98.4 F) Resp 15 Wt 210 lb 3.2 oz (95.3 kg) SpO2 99% BMI 33.93 kg/m Physical Exam Eyes: Pupils: Pupils are equal, round, and reactive to light. Comments: Wears glasses Cardiovascular: Rate and Rhythm: Normal rate and regular rhythm. Heart sounds: Murmur heard. Pulmonary: Effort: Pulmonary effort is normal. Breath sounds: Normal breath sounds. Comments: On RA Abdominal: General: Abdomen is flat. Palpations: Abdomen is soft. Musculoskeletal: Right lower leg: Edema (lymphedema) present. Left lower leg: Edema (lymphedema) present. Skin: General: Skin is warm and dry. Psychiatric: Attention and Perception: She is inattentive. Mood and Affect: Affect is flat. Cognition and Memory: Memory is impaired. Recent Labs: 11/10 CMP: Glucose 172, BUN 30, GFR 55, Ca 8.2, albumin 2.8 11/10 CBC: RBC 3.77, Hgb 11.4, Hct 33.2 11/10 Vitamin D: pending I spent total time of 39 minutes face to face with the patient and/or family discussing the diagnosis and importance of compliance with the treatment plan as well as documenting on the day of the visit. In addition, that total time includes the following: -Reviewing previous notes, -Reviewing labs, -Obtaining and/or reviewing separately obtained history, -Ordering prescription medications, tests and procedures, -Communicating results to the patient/family/caregiver, -Counseling/educating the patient/family/caregiver, -Documenting clinical information in the patients electronic record, -Coordination of care for the patient, and -Performing a medically appropriate exam and/or evaluation (Please note: Portions of this note were completed with a voice recognition program. Efforts were made to edit the dictations but occasionally words and phrases are mis-transcribed.) documented in this encounter [facility] 11-08-2024 Evaluation + Plan note Associated Problem(s): Cognitive decline -Patient is tangential throughout the interview and at times has difficulty with finding the correct words. -Has expressed concern about her memory to her niece. Appears to demonstrate confusion around her home medication regimen- likely needs increased oversight with this moving forward -Cognitive decline likely acute on chronic with acute component being secondary to her hyperglycemia and urinary tract infection. - Recommend outpatient follow up at the [facility] ([place] [facility]) for formal congitive testing when in typical state of health [facility] 11-08-2024 Evaluation + Plan note Associated Problem(s): Debility - Continue Physical Therapy/ Occupational Therapy with goal to improve function [facility] 11-08-2024 Miscellaneous Notes Associated Problem(s): Cognitive decline -Patient is tangential throughout the interview and at times has difficulty with finding the correct words. -Has expressed concern about her memory to her niece. Appears to demonstrate confusion around her home medication regimen- likely needs increased oversight with this moving forward -Cognitive decline likely acute on chronic with acute component being secondary to her hyperglycemia and urinary tract infection. - Recommend outpatient follow up at the [facility] ([place] [facility]) for formal congitive testing when in typical state of health Associated Problem(s): Debility - Continue Physical Therapy/ Occupational Therapy with goal to improve function Associated Problem(s): Mixed hyperlipidemia -Continue atorvastatin Associated Problem(s): Moderate recurrent major depression (HCC) - patient very upset about being in intermediate - will continue to work with her and family to determine best discharge - continue Celexa 20 units daily Associated Problem(s): Hypothyroidism -11/02 TSH 3.03 -Continue levothyroxine Associated Problem(s): Type 2 diabetes mellitus with hyperglycemia (HCC) -BGTs elevated since arrival to [facility] -11/02 A1C 12.9 -Continue Lispro 8U with meals, and increase Lantus from 24 to 28 units -Accuchecks monitor trends -Hypoglycemia protocol in place Associated Problem(s): Vitamin D deficiency -Check Vitamin D level 11/10 -Continue daily supplement for now Associated Problem(s): Lymphedema of both lower extremities - long standing per chart Associated Problem(s): Endometrial cancer (CMS/HCC) (HCC) - lost to follow up with gyne - disposition from [facility] not clear yet - will need follow up Associated Problem(s): Primary open angle glaucoma of both eyes, mild stage -Continue brimonidine, timolol Associated Problem(s): Atrial fibrillation (HCC) -Newly diagnosed while inpatient -Currently rate controlled -11/05 TTE shows hyperdynamic LVEF >75% with increased LV wall thickness. -Started on metoprolol 50mg BID, and apixaban 5mg BID -Has hospital follow-up scheduled with [facility] on 12/02/2024 with Carli Aldrich APRN-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 at 1000AM Associated Problem(s): Essential hypertension, benign -Overall controlled currently -Prior to admission on olmesartan, and carvedilol discontinued for now -Continue metoprolol -Has follow-up with [facility] on 12/02 as above Associated Problem(s): Moderate aortic stenosis -Volume status difficult to assess with body habitus but denies any shortness of breath and patient reports her edema is at baseline. Murmur present on exam -11/05 TTE shows moderate aortic stenosis. Measured aortic valve peak velocity and mean gradient are decreased in the current study compared with prior study, likely from decreased stroke volume secondary to atrial fibrillation. IVC is dilated with RAP ~8 mmhg. -11/01 NT pro BNP 6800. -Monitor volume status closely - follow up with cardiology 12/02/24 documented in this encounter [facility] 11-08-2024 Evaluation + Plan note Associated Problem(s): Mixed hyperlipidemia -Continue atorvastatin T [facility] 11-08-2024 Evaluation + Plan note Associated Problem(s): Moderate recurrent major depression (HCC) - patient very upset about being in intermediate - will continue to work with her and family to determine best discharge - continue Celexa 20 units daily T [facility] 11-08-2024 Evaluation + Plan note Associated Problem(s): Hypothyroidism -11/02 TSH 3.03 -Continue levothyroxine T [facility] 11-08-2024 Evaluation + Plan note Associated Problem(s): Type 2 diabetes mellitus with hyperglycemia (HCC) -BGTs elevated since arrival to [facility] -11/02 A1C 12.9 -Continue Lispro 8U with meals, and increase Lantus from 24 to 28 units -Accuchecks monitor trends -Hypoglycemia protocol in place [facility] 11-08-2024 Evaluation + Plan note Associated Problem(s): Vitamin D deficiency -Check Vitamin D level 11/10 -Continue daily supplement for now [facility] 11-08-2024 Evaluation + Plan note Associated Problem(s): Lymphedema of both lower extremities - long standing per chart T [facility] 11-08-2024 Evaluation + Plan note Associated Problem(s): Endometrial cancer (CMS/HCC) (HCC) - lost to follow up with gyne - disposition from [facility] not clear yet - will need follow up T [facility] 11-08-2024 Evaluation + Plan note Associated Problem(s): Primary open angle glaucoma of both eyes, mild stage -Continue brimonidine, timolol T [facility] 11-08-2024 Evaluation + Plan note Associated Problem(s): Atrial fibrillation (HCC) -Newly diagnosed while inpatient -Currently rate controlled -11/05 TTE shows hyperdynamic LVEF >75% with increased LV wall thickness. -Started on metoprolol 50mg BID, and apixaban 5mg BID -Has hospital follow-up scheduled with [facility] Cardiology on 12/02/2024 with Carli Aldrich APRN-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 at 1000AM T [facility] 11-08-2024 Evaluation + Plan note Associated Problem(s): Essential hypertension, benign -Overall controlled currently -Prior to admission on olmesartan, and carvedilol discontinued for now -Continue metoprolol -Has follow-up with [facility] Cardiology on 12/02 as above [facility] 11-08-2024 Evaluation + Plan note Associated Problem(s): Moderate aortic stenosis -Volume status difficult to assess with body habitus but denies any shortness of breath and patient reports her edema is at baseline. Murmur present on exam -11/05 TTE shows moderate aortic stenosis. Measured aortic valve peak velocity and mean gradient are decreased in the current study compared with prior study, likely from decreased stroke volume secondary to atrial fibrillation. IVC is dilated with RAP ~8 mmhg. -11/01 NT pro BNP 6800. -Monitor volume status closely - follow up with cardiology 12/02/24 [facility] 11-07-2024 Telephone encounter Note At this time it is better for the skilled team to care for her glucose levels She will need a follow apt for an extended visit as soon as she can be scheduled - I know it will be months so we should make apt now She can send in logs with what medications she is taking once discharged from [facility] 11-07-2024 History of Present illness Narrative Images from the original note were not included. [facility] ([facility]) Admission History and Physical [facility] - Geriatric Medicine Dameon Potter : 1955 Visit Date: 11/07/24 Facility: [facility] CC: Admission History and Physical for afib, hyperglycemia Assessment and Plan: 1. Debility Assessment & Plan: - Continue Physical Therapy/ Occupational Therapy with goal to improve function 2. Type 2 diabetes mellitus with hyperglycemia, with long-term current use of insulin (HCC) Assessment & Plan: -BGTs elevated since arrival to SNF -11/02 A1C 12.9 -Continue Lispro 8U with meals, and increase Lantus from 24 to 28 units -Accuchecks monitor trends -Hypoglycemia protocol in place 3. Cognitive decline Assessment & Plan: -Patient is tangential throughout the interview and at times has difficulty with finding the correct words. -Has expressed concern about her memory to her niece. Appears to demonstrate confusion around her home medication regimen- likely needs increased oversight with this moving forward -Cognitive decline likely acute on chronic with acute component being secondary to her hyperglycemia and urinary tract infection. - Recommend outpatient follow up at the [facility] ([place] [facility]) for formal congitive testing when in typical state of health 4. Vitamin D deficiency Assessment & Plan: -Check Vitamin D level 11/10 -Continue daily supplement for now 5. Moderate aortic stenosis Assessment & Plan: -Volume status difficult to assess with body habitus but denies any shortness of breath and patient reports her edema is at baseline. Murmur present on exam -11/05 TTE shows moderate aortic stenosis. Measured aortic valve peak velocity and mean gradient are decreased in the current study compared with prior study, likely from decreased stroke volume secondary to atrial fibrillation. IVC is dilated with RAP ~8 mmhg. -11/01 NT pro BNP 6800. -Monitor volume status closely - follow up with cardiology 12/02/24 6. Essential hypertension, benign Assessment & Plan: -Overall controlled currently -Prior to admission on olmesartan, and carvedilol discontinued for now -Continue metoprolol -Has follow-up with [facility] Cardiology on 12/02 as above 7. Persistent atrial fibrillation (HCC) Assessment & Plan: -Newly diagnosed while inpatient -Currently rate controlled -11/05 TTE shows hyperdynamic LVEF >75% with increased LV wall thickness. -Started on metoprolol 50mg BID, and apixaban 5mg BID -Has hospital follow-up scheduled with [facility] Cardiology on 12/02/2024 with Carli Aldrich APRN-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 at 1000AM 8. Primary open angle glaucoma of both eyes, mild stage Assessment & Plan: -Continue brimonidine, timolol 9. Endometrial cancer (CMS/HCC) (HCC) Assessment & Plan: - lost to follow up with gyne - disposition from SNF not clear yet - will need follow up 10. Lymphedema of both lower extremities Assessment & Plan: - long standing per chart 11. Morbid obesity (HCC) 12. Acquired hypothyroidism Assessment & Plan: -11/02 TSH 3.03 -Continue levothyroxine 13. Moderate recurrent major depression (HCC) Assessment & Plan: - patient very upset about being in intermediate - will continue to work with her and family to determine best discharge - continue Celexa 20 units daily 14. Mixed hyperlipidemia Assessment & Plan: -Continue atorvastatin Follow up: 3-7 days, sooner if problem arises HPI: The patient is new to me but seen by SNF team. Hospital Course: Transferring Hospital: [facility] Admit Date: 11/01/2024 Discharge Date: 11/05/2024 Dameon Potter is a 69 y.o. female admitted for hyperglycemia and new onset A-fib. PMHx of DMII, HTN, hypothyroidism, HLD, depression admitted to [facility] on 11/01/2024 for hyperglycemia. Patient also found to have new onset atrial fibrillation, metoprolol and apixaban started inpatient. Her urine culture was positive for E.coli was treated with IV ceftriaxone, switched to PO keflex on discharge for 1 more administration to finish a 5 day course. PT/OT recommended SNF on discharge. The patient was then transferred to [facility] for skilled rehab on 11/05/2024. Interval History: Dameon was very upset when I saw her. Feels like she has been kidnapped and trafficked. Does not understand how she could get admitted here. She is not sure where she is but knows it is in intermediate. Says she had to drag that out of them. Very tangential. She knew it was Sunday and the week of the . Says she resents being kidnapped. 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 Says she has started therapy and feels she is able to move on her own. Longstanding history of lymphedema. Used to go to [facility] for leg wraps. Started to receive palliative care in the home. Says that she has some long-term care insurance. Is upset with her niece in [place] who decided to send her here. Hospital Labs: Lab Results Component Value Date WBC 8.1 11/04/2024 HGB 11.8 11/04/2024 HCT 35.5 11/04/2024 MCV 87.2 11/04/2024 PLT 103 (L) 11/04/2024 LYMPHOPCT 8 (L) 11/02/2024 RBC 4.07 11/04/2024 MCH 29.0 11/04/2024 MCHC 33.2 11/04/2024 RDW 13.6 11/04/2024 Lab Results Component Value Date NA 137 11/05/2024 K 3.5 11/05/2024 CL 107 11/05/2024 CO2 19 (L) 11/05/2024 BUN 27 (H) 11/05/2024 CREATININE 0.85 11/05/2024 GLUCOSE 138 (H) 11/05/2024 CALCIUM 8.0 (L) 11/05/2024 PROT 7.3 11/01/2024 BILITOT 1.3 (H) 11/01/2024 ALKPHOS 99 11/01/2024 AST 20 11/01/2024 ALT 9 11/01/2024 Lab Results Component Value Date VITD25 22 (L) 04/06/2021 TSH 3.03 11/02/2024 Lab Results Component Value Date XXLRAVNT18 1,369 (H) 11/03/2024 Lab Results Component Value Date HGBA1C 12.9 (H) 11/02/2024 No results found for: INR, PROTIME Imagin11/02/2024 US renal: Mildly increased bilateral renal echotexture; correlate with chronic medical renal disease. Tiny, nonspecific amount of bilateral perinephric free fluid. 11/01/2024 CT head: No acute intracranial abnormality. Diffuse cortical volume loss and chronic small vessel ischemic changes. 11/01/2024 CXR: No radiographic acute cardiopulmonary process. Past Medical History: Diagnosis Date Anxiety Asthma Atrial fibrillation (HCC) Deficiency of nutrient elements Depression Dry eye Endometrial cancer (CMS/HCC) (HCC) 09/30/2020 Fatigue Gastritis GERD (gastroesophageal reflux disease) Glaucoma Glaucoma Hyperlipidemia Hypertension Hypothyroid Hypothyroidism Incontinence Intestinal malabsorption Lymph edema Morbid obesity (HCC) Obstructive sleep apnea PMB (postmenopausal bleeding) Polycystic ovarian syndrome Psoriasis SOB (shortness of breath) on exertion Thyroglossal duct cyst Type 2 diabetes mellitus without complication (HCC) Urinary tract infection Uterine cancer (CMS/HCC) (HCC) Vitamin D deficiency 05/10/2017 Zinc deficiency 06/21/2018 Allergies: Bimatoprost, Doxycycline, Erythromycin, Levaquin [levofloxacin], Macrobid [nitrofurantoin], Penicillins, Levofloxacin in d5w, Macrolides and ketolides, Molds & smuts, Nitrofurantoin monohyd macro, and Other Current Outpatient Medications Medication Sig Dispense Refill albuterol 108 (90 Base) MCG/ACT inhaler Inhale 2 puffs every 6 hours as needed. apixaban (Eliquis) 5 MG tablet Take 1 tablet (5 mg) by mouth 2 times daily. 60 tablet 0 atorvastatin (Lipitor) 40 MG tablet Take by mouth daily. BD Insulin Syringe U/F 30G X 1/2 0.5 ML misc 2 times daily with insulin 200 each 3 brimonidine (AlphaGAN P) 0.1 % ophthalmic solution Administer 1 drop into both eyes 3 times a day. cholecalciferol (Vitamin D-3) 25 MCG (1000 UT) capsule Take 50 mcg by mouth daily. citalopram (CeleXA) 20 MG tablet Take 20 mg by mouth daily. Continuous Glucose Sensor (FreeStyle Satya 3 Sensor) misc 1 Device every 14 (fourteen) days. 7 each 3 EPINEPHRINE HCL, ANAPHYLAXIS, IM Inject into the shoulder, thigh, or buttocks. FREESTYLE LITE test strip 1 each by Other route 4 times daily. As directed 400 each 3 glucose 4 g chewable tablet Chew 16 g if needed for low blood sugar. insulin glargine (Lantus) 100 UNIT/ML injection Inject 24 Units under the skin Nightly. 10 mL 12 Insulin Lispro (Humalog) 100 UNIT/ML solution injection Inject 8 Units under the skin 3 times daily (with meals). 10 mL 12 insulin pen needle 32G x 4 mm misc Use as instructed 2 times daily 200 each 3 levothyroxine (Synthroid, Levoxyl) 175 MCG tablet Take 1 tablet (175 mcg) by mouth every morning (before breakfast). 90 tablet 3 metoprolol tartrate (Lopressor) 50 MG tablet Take 1 tablet (50 mg) by mouth 2 times daily. 60 tablet 11 Multiple Vitamin (multivitamin) tablet Take 1 tablet by mouth daily. timolol (Timoptic) 0.5 % ophthalmic solution Administer 1 drop into both eyes in the morning and 1 drop in the evening. No current facility-administered medications for this visit. Past Surgical History: Procedure Laterality Date CATARACT EXTRACTION Bilateral CHOLECYSTECTOMY 01/29/2018 w/ LRYGB and Umbilical Hernia repair - [facility] DILATION AND CURETTAGE OF UTERUS 09/03/2020 with hysteroscopy GASTRIC BYPASS 01/29/2018 LRYGB w/ Lap Aggie and Umbilical Hernia repair, [facility] GASTRIC BYPASS HYSTERECTOMY 09/30/2020 [facility]; Dr. Cuauhtemoc Stubbs MOUTH SURGERY gum removal to expose wisdom teeth THYROGLOSSAL DUCT EXCISION 2000 [facility]- Dr. Vin Keating THYROIDECTOMY UMBILICAL HERNIA REPAIR 01/29/2018 w/ LRYGB and Lap Aggie - [facility] UPPER GASTROINTESTINAL ENDOSCOPY 03/20/2017 pre op, [facility] WISDOM TOOTH EXTRACTION 2013 [facility] Social History Socioeconomic History Marital status: Single Tobacco Use Smoking status: Never Smokeless tobacco: Never Substance and Sexual Activity Alcohol use: No Drug use: No Social Drivers of Health Transportation Needs: Unmet Transportation Needs (11/02/2024) PRAPARE - Transportation Lack of Transportation (Medical): Yes Lack of Transportation (Non-Medical): Yes Intimate Partner Violence: Not At Risk (11/02/2024) Humiliation, Afraid, Rape, and Kick questionnaire Fear of Current or Ex-Partner: No Emotionally Abused: No Physically Abused: No Sexually Abused: No Housing Stability: Low Risk (11/05/2024) Housing Stability Vital Sign Unable to Pay for Housing in the Last Year: No Number of Times Moved in the Last Year: 0 Homeless in the Last Year: No Recent Concern: Housing Stability - High Risk (11/02/2024) Housing Stability Vital Sign Unable to Pay for Housing in the Last Year: Yes Homeless in the Last Year: Yes Family History Problem Relation Name Age of Onset Stroke Father Obesity Mother dementia Diabetes Mother dementia High Blood Pressure Mother dementia Heart disease Mother dementia Stroke Paternal Grandfather High Blood Pressure Father Diabetes Father Diabetes Paternal Grandfather Heart attack Paternal Grandmother Colon cancer Neg Hx High Blood Pressure Brother Cancer Father bladder Obesity Father Family Status Relation Name Status Father (Not Specified) Mother dementia Alive PGF (Not Specified) PGM Neg Hx (Not Specified) Brother (Not Specified) No partnership data on file Review of Systems Constitutional: Negative for activity change, appetite change and fever. HENT: Negative for dental problem and hearing loss. Eyes: Negative for visual disturbance. Respiratory: Negative for cough and shortness of breath. Cardiovascular: Negative for leg swelling. Gastrointestinal: Negative for constipation and diarrhea. Genitourinary: Negative for difficulty urinating and dysuria. Musculoskeletal: Positive for gait problem. Negative for arthralgias. Skin: Negative for wound. Neurological: Negative for weakness. Psychiatric/Behavioral: Positive for dysphoric mood and sleep disturbance. Negative for confusion. The patient is not nervous/anxious. Vitals: 128/79, 81, 97.9, 18, 97%, 210.2 pounds Physical Exam Constitutional: Appearance: She is obese. She is not ill-appearing. Eyes: Extraocular Movements: Extraocular movements intact. Conjunctiva/sclera: Conjunctivae normal. Pupils: Pupils are equal, round, and reactive to light. Comments: Wears glasses Cardiovascular: Rate and Rhythm: Normal rate. Rhythm irregular. Heart sounds: Murmur heard. Pulmonary: Effort: Pulmonary effort is normal. Breath sounds: Normal breath sounds. Comments: On room air Abdominal: General: Bowel sounds are normal. Palpations: Abdomen is soft. Hernia: A hernia is present. Musculoskeletal: Right lower leg: Edema present. Left lower leg: Edema present. Skin: General: Skin is dry. Neurological: Mental Status: She is alert. Psychiatric: Attention and Perception: She is inattentive. Mood and Affect: Mood normal. Speech: Speech is tangential. Cognition and Memory: Cognition is impaired. Memory is impaired. I spent total time of 70 minutes face to face with the patient and/or family discussing the diagnosis and importance of compliance with the treatment plan as well as documenting on the day of the visit. In addition, that total time includes the following: -Reviewing previous notes, -Reviewing labs, -Ordering prescription medications, tests and procedures, -Counseling/educating the patient/family/caregiver, -Documenting clinical information in the patients electronic record, and -Performing a medically appropriate exam and/or evaluation (Please note: Portions of this note were completed with a voice recognition program. Efforts were made to edit the dictations but occasionally words and phrases are mis-transcribed.) documented in this encounter [facility] 11-06-2024 Evaluation + Plan note Associated Problem(s): Type 2 diabetes mellitus with hyperglycemia (HCC) -BGTs elevated since arrival to [facility] -11/02 A1C 12.9 -Will add low dose SSI today, likely will need increase in prandial insulin next week -Continue Lispro 8U with meals, and 24U Lantus -Accuchecks monitor trends -Hypoglycemia protocol in place [facility] 11-06-2024 Miscellaneous Notes Associated Problem(s): Type 2 diabetes mellitus with hyperglycemia (HCC) -BGTs elevated since arrival to [facility] -11/02 A1C 12.9 -Will add low dose SSI today, likely will need increase in prandial insulin next week -Continue Lispro 8U with meals, and 24U Lantus -Accuchecks monitor trends -Hypoglycemia protocol in place Associated Problem(s): Vitamin D deficiency -Check Vitamin D level 11/07 -Continue daily supplement for now Associated Problem(s): Hypothyroidism -11/02 TSH 3.03 -Continue levothyroxine Associated Problem(s): Primary open angle glaucoma of both eyes, mild stage -Continue brimonidine, timolol Associated Problem(s): Mixed hyperlipidemia -Continue atorvastatin Associated Problem(s): Essential hypertension, benign -Overall controlled currently -Prior to admission on mesartan, and carvedilol discontinued for now -Continue metoprolol -Has follow-up with [facility]iology on 12/02 as above Associated Problem(s): Moderate aortic stenosis -Volume status difficult to assess with body habitus but denies any shortness of breath and patient reports her edema is at baseline. Murmur present on exam -11/05 TTE shows moderate aortic stenosis. Measured aortic valve peak velocity and mean gradient are decreased in the current study compared with prior study, likely from decreased stroke volume secondary to atrial fibrillation. IVC is dilated with RAP ~8 mmhg. -11/01 NT pro BNP 6800. -Monitor volume status closely Associated Problem(s): Atrial fibrillation (HCC) -Newly diagnosed while inpatient -Currently rate controlled high end of normal, HR remains irregular, patient denies shortness of breath or palpitations -11/05 TTE shows hyperdynamic LVEF >75% with increased LV wall thickness. -Started on metoprolol 50mg BID, and apixaban 5mg BID -Has hospital follow-up scheduled with [facility] Cardiology on 12/02/2024 with Carli CELAYA at 1000AM Associated Problem(s): Cognitive decline -Patient is tangential throughout the interview and at times has difficulty with finding the correct words. -Has expressed concern about her memory to her niece. Appears to demonstrate confusion around her home medication regimen- likely needs increased oversight with this moving forward -Cognitive decline likely acute on chronic with acute component being secondary to her hyperglycemia and urinary tract infection. - Recommend outpatient follow up at the [facility] ([place] [facility]) for formal congitive testing when in typical state of health Associated Problem(s): Debility -Current status: assist x1 -Contributing factors: hospitalization, acute illness, new onset afib -Continue PT/OT during SNF stay -SW to follow for discharge planning documented in this encounter [facility] 11-06-2024 Evaluation + Plan note Associated Problem(s): Vitamin D deficiency -Check Vitamin D level 11/07 -Continue daily supplement for now [facility] 11-06-2024 Evaluation + Plan note Associated Problem(s): Hypothyroidism -4 TSH 3.03 -Continue levothyroxine [facility] 11-06-2024 Evaluation + Plan note Associated Problem(s): Primary open angle glaucoma of both eyes, mild stage -Continue brimonidine, timolol [facility] 11-06-2024 Evaluation + Plan note Associated Problem(s): Mixed hyperlipidemia -Continue atorvastatin [facility] 11-06-2024 Evaluation + Plan note Associated Problem(s): Essential hypertension, benign -Overall controlled currently -Prior to admission on olmesartan, and carvedilol discontinued for now -Continue metoprolol -Has follow-up with [facility] Cardiology on 12/02 as above [facility] 11-06-2024 Evaluation + Plan note Associated Problem(s): Moderate aortic stenosis -Volume status difficult to assess with body habitus but denies any shortness of breath and patient reports her edema is at baseline. Murmur present on exam -11/05 TTE shows moderate aortic stenosis. Measured aortic valve peak velocity and mean gradient are decreased in the current study compared with prior study, likely from decreased stroke volume secondary to atrial fibrillation. IVC is dilated with RAP ~8 mmhg. -11/01 NT pro BNP 6800. -Monitor volume status closely [facility] 11-06-2024 Evaluation + Plan note Associated Problem(s): Atrial fibrillation (HCC) -Newly diagnosed while inpatient -Currently rate controlled high end of normal, HR remains irregular, patient denies shortness of breath or palpitations -11/05 TTE shows hyperdynamic LVEF >75% with increased LV wall thickness. -Started on metoprolol 50mg BID, and apixaban 5mg BID -Has hospital follow-up scheduled with [facility] Cardiology on 12/02/2024 with Carli CELAYA at 1000AM [facility] 11-06-2024 Evaluation + Plan note Associated Problem(s): Cognitive decline -Patient is tangential throughout the interview and at times has difficulty with finding the correct words. -Has expressed concern about her memory to her niece. Appears to demonstrate confusion around her home medication regimen- likely needs increased oversight with this moving forward -Cognitive decline likely acute on chronic with acute component being secondary to her hyperglycemia and urinary tract infection. - Recommend outpatient follow up at the [facility] ([place] [facility]) for formal congitive testing when in typical state of health [facility] 11-06-2024 Evaluation + Plan note Associated Problem(s): Debility -Current status: assist x1 -Contributing factors: hospitalization, acute illness, new onset afib -Continue PT/OT during SNF stay -SW to follow for discharge planning [facility] 11-06-2024 History of Present illness Narrative Images from the original note were not included. [facility]) Initial MARKETING ENGINEER visit [facility] - Geriatric Medicine Dameon Potter : 1955 Visit Date: 11/06/2024 Facility: [facility] CC: Initial [facility]U MARKETING ENGINEER visit S/P Hospitalization for Hyperglycemia Medication Reconciliation Nursing request MARKETING ENGINEER to see patient for debility, hyperglycemia Assessment and Plan: 1. Persistent atrial fibrillation (HCC) Assessment & Plan: -Newly diagnosed while inpatient -Currently rate controlled high end of normal, HR remains irregular, patient denies shortness of breath or palpitations -11/05 TTE shows hyperdynamic LVEF >75% with increased LV wall thickness. -Started on metoprolol 50mg BID, and apixaban 5mg BID -Has hospital follow-up scheduled with [facility] Cardiology on 12/02/2024 with Carli CELAYA at 1000AM 2. Type 2 diabetes mellitus with hyperglycemia, with long-term current use of insulin (HCC) Assessment & Plan: -BGTs elevated since arrival to SNF -11/02 A1C 12.9 -Will add low dose SSI today, likely will need increase in prandial insulin next week -Continue Lispro 8U with meals, and 24U Lantus -Accuchecks monitor trends -Hypoglycemia protocol in place 3. Cognitive decline Assessment & Plan: -Patient is tangential throughout the interview and at times has difficulty with finding the correct words. -Has expressed concern about her memory to her niece. Appears to demonstrate confusion around her home medication regimen- likely needs increased oversight with this moving forward -Cognitive decline likely acute on chronic with acute component being secondary to her hyperglycemia and urinary tract infection. - Recommend outpatient follow up at the [facility] ([place] [facility]) for formal congitive testing when in typical state of health 4. Debility Assessment & Plan: -Current status: assist x1 -Contributing factors: hospitalization, acute illness, new onset afib -Continue PT/OT during SNF stay -SW to follow for discharge planning 5. Essential hypertension, benign Assessment & Plan: -Overall controlled currently -Prior to admission on olmesartan, and carvedilol discontinued for now -Continue metoprolol -Has follow-up with [facility] Cardiology on 12/02 as above 6. Moderate aortic stenosis Assessment & Plan: -Volume status difficult to assess with body habitus but denies any shortness of breath and patient reports her edema is at baseline. Murmur present on exam -11/05 TTE shows moderate aortic stenosis. Measured aortic valve peak velocity and mean gradient are decreased in the current study compared with prior study, likely from decreased stroke volume secondary to atrial fibrillation. IVC is dilated with RAP ~8 mmhg. -11/01 NT pro BNP 6800. -Monitor volume status closely 7. Mixed hyperlipidemia Assessment & Plan: -Continue atorvastatin 8. Primary open angle glaucoma of both eyes, mild stage Assessment & Plan: -Continue brimonidine, timolol 9. Acquired hypothyroidism Assessment & Plan: -11/02 TSH 3.03 -Continue levothyroxine 10. Vitamin D deficiency Assessment & Plan: -Check Vitamin D level 11/07 -Continue daily supplement for now Follow up: 3-7 days, sooner if problem arises HPI: The patient is new to me but seen by the Geriatric Inpatient Consult team. Hospital Course: Per hospital record review, Dameon Potter is 69 y.o. female with PMHx of DMII, HTN, hypothyroidism, HLD, depression admitted to [facility] on 11/01/2024 for hyperglycemia. Patient also found to have new onset atrial fibrillation, metoprolol and apixaban started inpatient. Her urine culture was positive for E.coli was treated with IV ceftriaxone, switched to PO keflex on discharge for 1 more administration to finish a 5 day course. PT/OT recommended SNF on discharge. The patient was then transferred to [facility] for skilled rehab on 11/05. Interval History: On exam patient is seen sitting on the edge of the bed watching television, in no acute distress. She she tells me that she is feeling well however she is fatigued. She denies orthopnea, shortness of breath, and palpitations. She states everyone asks me that and my answer is always now. I explained to patient's that because of her recent diagnosis of atrial fibrillation is important for us to assess these things. She voices understanding. I further discussed with patient the importance of adhering to her new medication regimen including metoprolol and apixaban 2 times a day. She tells me that she currently receives her medications delivered in bottles from a mail order pharmacy. She is interested in setting up delivery medications with with all of her daily medications in 1 pocket that she can pop out and dispense in the morning and at night. When discussing her medication regimen she shares that she has many financial stressors which make it difficult for her to afford her medications. I assured the patient that I would talk with the certified social workers in health care to assist her with this during her stay at [facility]. Hospital Labs: Lab Results Component Value Date WBC 8.1 11/04/2024 HGB 11.8 11/04/2024 HCT 35.5 11/04/2024 MCV 87.2 11/04/2024 PLT 103 (L) 11/04/2024 LYMPHOPCT 8 (L) 11/02/2024 RBC 4.07 11/04/2024 MCH 29.0 11/04/2024 MCHC 33.2 11/04/2024 RDW 13.6 11/04/2024 Lab Results Component Value Date NA 137 11/05/2024 K 3.5 11/05/2024 CL 107 11/05/2024 CO2 19 (L) 11/05/2024 BUN 27 (H) 11/05/2024 CREATININE 0.85 11/05/2024 GLUCOSE 138 (H) 11/05/2024 CALCIUM 8.0 (L) 11/05/2024 PROT 7.3 11/01/2024 BILITOT 1.3 (H) 11/01/2024 ALKPHOS 99 11/01/2024 AST 20 11/01/2024 ALT 9 11/01/2024 Lab Results Component Value Date VITD25 22 (L) 04/06/2021 TSH 3.03 11/02/2024 Lab Results Component Value Date HGBA1C 12.9 (H) 11/02/2024 No results found for: INR, PROTIME Imagin11/02/2024 US renal: Mildly increased bilateral renal echotexture; correlate with chronic medical renal disease. Tiny, nonspecific amount of bilateral perinephric free fluid. 11/01/2024 CT head: No acute intracranial abnormality. Diffuse cortical volume loss and chronic small vessel ischemic changes. 11/01/2024 CXR: No radiographic acute cardiopulmonary process. Past Medical History: Diagnosis Date Anxiety Asthma Atrial fibrillation (HCC) Deficiency of nutrient elements Depression Dry eye Fatigue Gastritis GERD (gastroesophageal reflux disease) Glaucoma Glaucoma Hyperlipidemia Hypertension Hypothyroid Hypothyroidism Incontinence Intestinal malabsorption Lymph edema Morbid obesity (HCC) Obstructive sleep apnea PMB (postmenopausal bleeding) Polycystic ovarian syndrome Psoriasis SOB (shortness of breath) on exertion Thyroglossal duct cyst Type 2 diabetes mellitus without complication (HCC) Urinary tract infection Uterine cancer (CMS/HCC) (HCC) Vitamin D deficiency 05/10/2017 Zinc deficiency 06/21/2018 Allergies: Bimatoprost, Doxycycline, Erythromycin, Levaquin [levofloxacin], Macrobid [nitrofurantoin], Penicillins, Levofloxacin in d5w, Macrolides and ketolides, Molds & smuts, Nitrofurantoin monohyd macro, and Other Current Outpatient Medications Medication Sig Dispense Refill albuterol 108 (90 Base) MCG/ACT inhaler Inhale 2 puffs every 6 hours as needed. apixaban (Eliquis) 5 MG tablet Take 1 tablet (5 mg) by mouth 2 times daily. 60 tablet 0 atorvastatin (Lipitor) 40 MG tablet Take by mouth daily. BD Insulin Syringe U/F 30G X 1/2 0.5 ML misc 2 times daily with insulin 200 each 3 brimonidine (AlphaGAN P) 0.1 % ophthalmic solution Administer 1 drop into both eyes 3 times a day. cholecalciferol (Vitamin D-3) 25 MCG (1000 UT) capsule Take 50 mcg by mouth daily. citalopram (CeleXA) 20 MG tablet Take 20 mg by mouth daily. Continuous Glucose Sensor (FreeStyle Satya 3 Sensor) misc 1 Device every 14 (fourteen) days. 7 each 3 EPINEPHRINE HCL, ANAPHYLAXIS, IM Inject into the shoulder, thigh, or buttocks. FREESTYLE LITE test strip 1 each by Other route 4 times daily. As directed 400 each 3 glucose 4 g chewable tablet Chew 16 g if needed for low blood sugar. insulin glargine (Lantus) 100 UNIT/ML injection Inject 24 Units under the skin Nightly. 10 mL 12 Insulin Lispro (Humalog) 100 UNIT/ML solution injection Inject 8 Units under the skin 3 times daily (with meals). 10 mL 12 insulin pen needle 32G x 4 mm misc Use as instructed 2 times daily 200 each 3 levothyroxine (Synthroid, Levoxyl) 175 MCG tablet Take 1 tablet (175 mcg) by mouth every morning (before breakfast). 90 tablet 3 metoprolol tartrate (Lopressor) 50 MG tablet Take 1 tablet (50 mg) by mouth 2 times daily. 60 tablet 11 Multiple Vitamin (multivitamin) tablet Take 1 tablet by mouth daily. timolol (Timoptic) 0.5 % ophthalmic solution Administer 1 drop into both eyes in the morning and 1 drop in the evening. No current facility-administered medications for this visit. Past Surgical History: Procedure Laterality Date CATARACT EXTRACTION Bilateral CHOLECYSTECTOMY 01/29/2018 w/ LRYGB and Umbilical Hernia repair - [facility] DILATION AND CURETTAGE OF UTERUS 09/03/2020 with hysteroscopy GASTRIC BYPASS 01/29/2018 LRYGB w/ Lap Aggie and Umbilical Hernia repair, [facility] GASTRIC BYPASS HYSTERECTOMY 09/30/2020 [facility]/BSO; Dr. Cuauhtemoc Stubbs MOUTH SURGERY 1979' gum removal to expose wisdom teeth THYROGLOSSAL DUCT EXCISION 2000 [facility]- Dr. Vin Keating THYROIDECTOMY UMBILICAL HERNIA REPAIR 01/29/2018 w/ LRYGB and Lap Aggie - [facility] UPPER GASTROINTESTINAL ENDOSCOPY 03/20/2017 pre op, [facility] WISDOM TOOTH EXTRACTION 2013 [facility] Family History Problem Relation Name Age of Onset Stroke Father Obesity Mother dementia Diabetes Mother dementia High Blood Pressure Mother dementia Heart disease Mother dementia Stroke Paternal Grandfather High Blood Pressure Father Diabetes Father Diabetes Paternal Grandfather Heart attack Paternal Grandmother Colon cancer Neg Hx High Blood Pressure Brother Cancer Father bladder Obesity Father Family Status Relation Name Status Father (Not Specified) Mother dementia Alive PGF (Not Specified) PGM Neg Hx (Not Specified) Brother (Not Specified) No partnership data on file Social History Socioeconomic History Marital status: Single Tobacco Use Smoking status: Never Smokeless tobacco: Never Substance and Sexual Activity Alcohol use: No Drug use: No Social Drivers of Health Transportation Needs: Unmet Transportation Needs (11/02/2024) PRAPARE - Transportation Lack of Transportation (Medical): Yes Lack of Transportation (Non-Medical): Yes Intimate Partner Violence: Not At Risk (11/02/2024) Humiliation, Afraid, Rape, and Kick questionnaire Fear of Current or Ex-Partner: No Emotionally Abused: No Physically Abused: No Sexually Abused: No Housing Stability: Low Risk (11/05/2024) Housing Stability Vital Sign Unable to Pay for Housing in the Last Year: No Number of Times Moved in the Last Year: 0 Homeless in the Last Year: No Recent Concern: Housing Stability - High Risk (11/02/2024) Housing Stability Vital Sign Unable to Pay for Housing in the Last Year: Yes Homeless in the Last Year: Yes Review of Systems Constitutional: Positive for fatigue. Negative for chills and fever. HENT: Positive for rhinorrhea. Negative for congestion. Respiratory: Negative for cough and shortness of breath. Cardiovascular: Positive for leg swelling (baseline 2/2 lymphedema). Negative for chest pain and palpitations. Gastrointestinal: Negative for constipation, diarrhea, nausea and vomiting. Genitourinary: Negative for dysuria and urgency. Musculoskeletal: Negative for arthralgias and back pain. Neurological: Positive for weakness (generalized). Psychiatric/Behavioral: Positive for confusion. Vitals: BP (!) 131/92 Pulse 93 Temp 36.8 C (98.2 F) Resp 15 Wt 213 lb (96.6 kg) SpO2 99% BMI 34.38 kg/m Physical Exam Constitutional: Appearance: She is ill-appearing. Eyes: Comments: Wears glasses Cardiovascular: Rate and Rhythm: Normal rate. Rhythm irregular. Heart sounds: Murmur heard. Pulmonary: Effort: Pulmonary effort is normal. Breath sounds: Normal breath sounds. Comments: On room air Abdominal: General: Bowel sounds are normal. Palpations: Abdomen is soft. Hernia: A hernia is present. Musculoskeletal: Right lower leg: Edema present. Left lower leg: Edema present. Skin: General: Skin is dry. Psychiatric: Attention and Perception: She is inattentive. Mood and Affect: Mood normal. Speech: Speech is tangential. Cognition and Memory: Cognition is impaired. Memory is impaired. I spent total time of 100 minutes face to face with the patient and/or family discussing the diagnosis and importance of compliance with the treatment plan as well as documenting on the day of the visit. In addition, that total time includes the following: -Reviewing previous notes, -Reviewing labs, -Obtaining and/or reviewing separately obtained history, -Ordering prescription medications, tests and procedures, -Communicating results to the patient/family/caregiver, -Counseling/educating the patient/family/caregiver, -Documenting clinical information in the patients electronic record, and -Coordination of care for the patient (Please note: Portions of this note were completed with a voice recognition program. Efforts were made to edit the dictations but occasionally words and phrases are mis-transcribed.) documented in this encounter [facility] 11-05-2024 Telephone encounter Note Admitted to [facility]. Orders reviewed. Will see on Sunday. [facility] 11-05-2024 Miscellaneous Notes Admitted to [facility]. Orders reviewed. Will see on Sunday. documented in this encounter [facility] 11-05-2024 Note [facility] 11-05-2024 Nurse Note Gave report to Day at [facility]. [facility] 11-05-2024 Nurse Note Gave report to Day at [facility]. Visual monitor removed from room. Pt has been free of any events today that would require a monitor Jennifer Pickett updated on patients current condition and current clinical status. Nieves made aware patient exhibits signs of confusion but is clinically stable with no current signs of any life threatening of critical symptoms to appreciate at this time. Direct advancement paper work were discussed and patient is a DNI. Patients brother also updated and he made nursing staff aware that he feels that she's not safe to live home alone. Patient exhibits poor hygiene and stated My leg wraps haven't been changed in months so that means I haven't showered in months because I can't get them wet. Physician made aware of all pertinent clinical information. documented in this encounter [facility] 11-05-2024 Plan of care note Problem: Knowledge Deficit Goal: Patient/family/caregiver demonstrates understanding of disease process, treatment plan, medications, and discharge instructions Outcome: Adequate for Discharge Problem: Potential for Compromised Skin Integrity Goal: Skin Integrity is Maintained or Improved Outcome: Adequate for Discharge Goal: Nutritional status is improving Outcome: Adequate for Discharge Problem: Urinary Incontinence Goal: Perineal skin integrity is maintained or improved Outcome: Adequate for Discharge Problem: Potential for Falls Goal: I will remain free of falls Outcome: Adequate for Discharge Problem: Discharge Barriers Goal: My discharge needs are met Outcome: Adequate for Discharge Problem: Problem Interventions Goal: Assess Nutritional Intake Outcome: Adequate for Discharge [facility] 11-05-2024 Miscellaneous Notes Problem: Knowledge Deficit Goal: Patient/family/caregiver demonstrates understanding of disease process, treatment plan, medications, and discharge instructions Outcome: Adequate for Discharge Problem: Potential for Compromised Skin Integrity Goal: Skin Integrity is Maintained or Improved Outcome: Adequate for Discharge Goal: Nutritional status is improving Outcome: Adequate for Discharge Problem: Urinary Incontinence Goal: Perineal skin integrity is maintained or improved Outcome: Adequate for Discharge Problem: Potential for Falls Goal: I will remain free of falls Outcome: Adequate for Discharge Problem: Discharge Barriers Goal: My discharge needs are met Outcome: Adequate for Discharge Problem: Problem Interventions Goal: Assess Nutritional Intake Outcome: Adequate for Discharge Patient Choice Patient Name: DAMEON POTTER Date of : 1955 All Providers Sent Referral Name: [facility] [place] [facility] Phone: [phone] Address: [address] [place] [address] Name: [facility] Phone: [phone] Address: [address] [place] [address] Name: [facility] Phone: [phone] Address: [address] [place] [address] Name: [facility] Phone: [phone] Address: [address] [place] [address] Social work follow up on SDOH: housing and transport. Social work met with the patient on this day. Patient denies any issues with housing- her house is paid off. Patient does confirm issues with transport for appts- she reports she doesn't feel safe now to drive. Social work review of metro [facility] with the patient- she is interested in registering. Patient does not have an insurance that pays for transport for appts. Social work also reviewed direction home and making [facility]SPORT or aging in place referral if patient does not qualify for medicaid. Patient interested in referral. Social work inquired if I could follow up with her niece to give her this information so she can assist the patient in both programs. Patient states yes. Social work placed call to Nieves- mela. Reviewed barbara mcgarry- she took phone number and will assist the patient in registering. Social work review of direction home referral- Nieves feels patient would benefit from this program- referral made and Nieves made the interpersonal communications professor. [employer] updated on referral being made. Patient is set to discharge to [facility]. Transport arranged in roundtrip via [facility] for 3 pm pickers material handlers with Jose Maria Lainez. Social work did update patient on transport time and possible copay/expense for transport. Social work updated patients niece Nieves via phone on discharge/transport time. Social work also [facility], [facility] bedside RN and unit. Discharge med list transmitted to SNF - [facility] per [facility] request. 7000 completed in [facility] per [facility] request. Facility notified via [facility]. INTERNET PROJECT MANAGER tasked to send discharge order, MAR and 7000 to [facility]. VM discontinued yesterday at 1pm. [facility] updated an asked if they would have a bed. Geriatrics/ cards following. Problem: Knowledge Deficit Goal: Patient/family/caregiver demonstrates understanding of disease process, treatment plan, medications, and discharge instructions Outcome: Progressing Problem: Potential for Compromised Skin Integrity Goal: Skin Integrity is Maintained or Improved Outcome: Progressing Goal: Nutritional status is improving Outcome: Progressing Problem: Urinary Incontinence Goal: Perineal skin integrity is maintained or improved Outcome: Progressing Problem: Potential for Falls Goal: I will remain free of falls Outcome: Progressing Problem: Discharge Barriers Goal: My discharge needs are met Outcome: Progressing Problem: Problem Interventions Goal: Assess Nutritional Intake Outcome: Progressing [facility] able to accept pt. Ramila kiley talked with pt. She will need to be 24hr free of VM. Provider and nurse notified. Referral placed to SNF 1. [facility] 2. [facility] 3. [facility] 4. [facility] per [facility] request. Await review and response regarding ability to accept. TCC notified. IV rocephin continued for UTI. BC pending. VM in room. Stefanie/ cards following. Spoke with pt and asked if she was able to look over the list of facilities. Pt states she does not know where the list went. Pt states she does not care what facility. I told her I would send referrals to the places closest in this area and let her know who would be able to accept. Pt agreeable. INTERNET PROJECT MANAGER tasked to send referrals to [facility], [facility], [facility] and [facility]. Problem: Potential for Compromised Skin Integrity Goal: Nutritional status is improving Outcome: Progressing Problem: Urinary Incontinence Goal: Perineal skin integrity is maintained or improved Outcome: Progressing Pt adm for tx/ eval of hyperglycemia. Echo/ renal US/ CT head/ XR chest completed. IV rocephin started- UTI. BC pending. On arrival needed to be placed on insulin gtt- has been discontinued. Stefanie/ cards following. Therapy recommending snf. Spoke with nikong Pickett, introduced self and roll, discussed discharge plan. She thinks the pt should go to a facility short term prior to going home d/t increased weakness. Spoke with pt, introduced self and roll. Discussed conversation with Nieves and she was agreeable. Gave her a list of facilities and told her I would be back to get choices. Problem: Knowledge Deficit Goal: Patient/family/caregiver demonstrates understanding of disease process, treatment plan, medications, and discharge instructions Outcome: Progressing Problem: Potential for Compromised Skin Integrity Goal: Skin Integrity is Maintained or Improved Outcome: Progressing Goal: Nutritional status is improving Outcome: Progressing Problem: Urinary Incontinence Goal: Perineal skin integrity is maintained or improved Outcome: Progressing Problem: Potential for Falls Goal: I will remain free of falls Outcome: Progressing Problem: Potential for Falls Goal: I will remain free of falls Outcome: Progressing Problem: Discharge Barriers Goal: My discharge needs are met Outcome: Progressing documented in this encounter [facility] 11-05-2024 History of Present illness Narrative Images from the original note were not included. [facility] Geriatric Medicine Inpatient Consult Service Admission Date: 11/01/2024 Assessment Principal Problem: Hyperglycemia Active Problems: Severe malnutrition (CMS/HCC) (HCC) Plan Acute metabolic encephalopathy - improving - likely secondary to hyperglycemia, infection - continue to treat underlying infectious processes - Delirium protocol - If agitated, assess for and consider treating for pain - Monitor for constipation/urinary retention - last BM documented on 11/04 - Encourage PO intake, time up in chair, family visits, supervised ambulation, and sleep hygiene Debility Declining functional status -Acute on chronic- likely worsened in setting of acute illness/hospitalization - Even preceding her acute illness she had been looking into additional services to help at home - it appears that she was starting to need more help with things like ADLs. - Continue PT/OT as able- PT currently recommending SNF- patient is agreeable, plan for discharge later today Memory loss - Has expressed concern about her memory to her niece. - Cognitive decline likely acute on chronic with acute component being secondary to her hyperglycemia and urinary tract infection. - Also, appears to demonstrate confusion around her home medication regimen- likely needs increased oversight with this moving forward - Recommend outpatient follow up at the [facility] [facility] added to discharge follow up instructions Follow up: Plan for discharge later today, geriatrics will sign off at this time, please page for questions Subjective: Chief complaint: AMS, hyperglycemia Geriatrics consulted for Failure to thrive, confusion HPI- patient is known to me 69 y.o. year-old female presented from home for hyperglycemia and altered mental status. Per review of history and physical she reported feeling poorly over the last few days. She endorsed increased weakness and increased urinary frequency. She independently took herself off of insulin in June because she felt that she could control her diabetes with diet and exercise. On arrival to the hospital her blood sugar was elevated to 617. She was started on an insulin drip and transition to subcutaneous insulin. Albumin was 2.5. BNP was 6801. High-sensitivity troponin was elevated. Urine culture grew E. coli. Hemoglobin A1c was 12.9. TSH was 3.03. Renal ultrasound showed mildly increased bilateral renal echotexture. Cardiology consulted for new onset atrial fibrillation. Interval history: remains on 4W No documented overnight events Patient reports she is doing OK today, she reports she feels like she is still having some confusion that is lingering, isn't sure what she is supposed to do but she is aware that the plan is for rehab at this time and remains agreeable to this plan. Therapy recommendations: Seen by PT today- Min assist with FWW, 20ft, 45ft- recommending SNF Review of Systems Constitutional: Negative for decreased appetite and malaise/fatigue. Cardiovascular: Negative for chest pain. Respiratory: Negative for cough and shortness of breath. Musculoskeletal: Positive for arthritis. Gastrointestinal: Negative for nausea and vomiting. Neurological: Negative for dizziness. Psychiatric/Behavioral: Positive for altered mental status (improving). The patient does not have insomnia. Objective: BP 111/71 (BP Location: Left arm, Patient Position: Sitting) Pulse 82 Temp 36.4 C (97.5 F) (Temporal) Resp 16 Ht 5' 6 (1.676 m) Wt 218 lb (98.9 kg) SpO2 100% BMI 35.19 kg/m Current Facility-Administered Medications: acetaminophen (Tylenol) tablet 650 mg, 650 mg, Oral, q6h PRN, Leanna Correia MD albuterol 108 (90 Base) MCG/ACT inhaler 2 puff, 2 puff, Inhalation, q6h PRN, Jeremiah Coffman NP apixaban (Eliquis) tablet 5 mg, 5 mg, Oral, BID, Dominga Martinez MD, 5 mg at 11/05/24 09 atorvastatin (Lipitor) tablet 40 mg, 40 mg, Oral, Daily, Jeremiah Coffman NP, 40 mg at 11/05/24 09 brimonidine (AlphaGAN) 0.2 % ophthalmic solution 1 drop, 1 drop, Both Eyes, TID, Jeremiah Coffman NP, 1 drop at 11/05/24922 cephalexin (Keflex) capsule 500 mg, 500 mg, Oral, BID, Leanna Correia MD, 500 mg at 11/05/24 0923 dextrose 10 % infusion, 200 mL/hr, IntraVENous, Continuous PRN, Jeremiah Coffman NP dextrose 5 % and sodium chloride 0.45 % infusion, 250 mL/hr, IntraVENous, Continuous PRN, Jeremiah Coffman NP dextrose 5 % infusion, 100 mL/hr, IntraVENous, PRN, Jeremiah Coffman NP dextrose 50 % solution 12.5 g, 12.5 g, IntraVENous, PRN, Jeremiah Coffman NP glucagon (human recombinant) injection 1 mg, 1 mg, IntraMUSCular, PRN, Jeremiah Coffman NP glucose oral gel 15 g, 15 g, Oral, PRN, Jeremiah Coffman NP insulin glargine (Lantus) injection 24 Units, 24 Units, SubCUTAneous, Nightly, Rock Esqueda MD, 24 Units at 11/04/242155 Insulin Lispro (Humalog) injection 0-18 Units, 0-18 Units, SubCUTAneous, TID WC, 3 Units at 11/05/24 09 AND Insulin Lispro (Humalog) injection 0-18 Units, 0-18 Units, SubCUTAneous, Nightly, Jeremiah Coffman NP, 6 Units at 11/04/242156 Insulin Lispro (Humalog) injection 8 Units, 8 Units, SubCUTAneous, TID WC, Rock Esqueda MD, 8 Units at 11/05/24 09 levothyroxine (Synthroid, Levoxyl) tablet 175 mcg, 175 mcg, Oral, qAM AC, Jeremiah Coffman NP, 175 mcg at 11/05/24 0538 metoprolol tartrate (Lopressor) tablet 50 mg, 50 mg, Oral, BID, Carli Aldrich, 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, 50 mg at 11/05/24 0923 nitroglycerin (Nitrostat) SL tablet 0.4 mg, 0.4 mg, SubLINGual, q5 min PRN, Jeremiah Coffman NP perflutren protein A microsphere (Optison) 3 mL in sodium chloride (PF) 0.9 % 10 mL IV, 0-10 mL, IntraVENous, Once PRN, Dominga Martinez MD polyethylene glycol (PEG) 3350 (Miralax) packet 17 g, 17 g, Oral, Daily PRN, Jeremiah Coffman NP timolol (Timoptic) 0.5 % ophthalmic solution 1 drop, 1 drop, Both Eyes, BID, Jeremiah Coffman NP, 1 drop at 11/05/24 0923 Physical Exam Constitutional: General: She is not in acute distress. Comments: Sitting up in bedside chair, alert and cooperative with exam HENT: Right Ear: External ear normal. Left Ear: External ear normal. Mouth/Throat: Mouth: Mucous membranes are moist. Pharynx: Oropharynx is clear. Eyes: General: Right eye: No discharge. Left eye: No discharge. Conjunctiva/sclera: Conjunctivae normal. Comments: glasses Cardiovascular: Rate and Rhythm: Normal rate. Heart sounds: Murmur heard. Pulmonary: Effort: Pulmonary effort is normal. No respiratory distress. Breath sounds: No wheezing or rales. Musculoskeletal: Right lower leg: No edema. Left lower leg: No edema. Neurological: Mental Status: She is alert and oriented to person, place, and time. She is confused. Comments: Follows commands Psychiatric: Attention and Perception: Attention normal. Mood and Affect: Mood normal. Behavior: Behavior normal. Behavior is not agitated. Behavior is cooperative. Cognition and Memory: Cognition is impaired. Labs and Imaging: Lab Results Component Value Date WBC 8.1 11/04/2024 HGB 11.8 11/04/2024 HCT 35.5 11/04/2024 MCV 87.2 11/04/2024 PLT 103 (L) 11/04/2024 Lab Results Component Value Date NA 137 11/05/2024 K 3.5 11/05/2024 CL 107 11/05/2024 CO2 19 (L) 11/05/2024 BUN 27 (H) 11/05/2024 CREATININE 0.85 11/05/2024 GLUCOSE 138 (H) 11/05/2024 CALCIUM 8.0 (L) 11/05/2024 PROT 7.3 11/01/2024 BILITOT 1.3 (H) 11/01/2024 ALKPHOS 99 11/01/2024 AST 20 11/01/2024 ALT 9 11/01/2024 Lab Results Component Value Date VITD25 22 (L) 04/06/2021 TSH 3.03 11/02/2024 UA: No results found for: APPEARANCE, COLORU, LABSPEC, LABPH, URINE, GLUCOSEU, UROBILINOGEN, BILIRUBINUR, OCBU === 11/01/24 === CT HEAD WO IV CONTRAST - Impression - No acute intracranial abnormality. Diffuse cortical volume loss and chronic small vessel ischemic changes. Report Dictated on Electronically Signed By: Anastasia Spencer MD Electronically Signed Date/Time: 11/01/2024 7:51 PM EDT No results found for this or any previous visit from the past 365 days. === 11/01/24 === XR CHEST 1 VIEW - Impression - No radiographic acute cardiopulmonary process. Report Dictated on Electronically Signed By: Claudette Nunez MD Electronically Signed Date/Time: 11/01/2024 6:25 PM EDT Reviewed: current medication list, allergies, recent labs, several last encounter notes Images from the original note were not included. PHYSICAL THERAPY [facility] Treatment Note Name/MRN: Dameon Potter ([id number]) Date of : 1955 Age: 69 y.o. Room[facility]Bed: [facility] A Discharge Recommendation: Half-Way Facility Equipment Needed: No Prior Level of Function Prior Level of ADL Function: Independent Prior Level of Mobility: Independent; Device: Front wheeled walker and Quad cane Prior Level of Transfers: Independent Assessment Patient progressing well towards goals. Able to perform bed mobility and transfers with min assist. Trailed quad cane vs. FWW with gait, patient demo's improved stability and balance with FWW. General instability noted with decreased carry over of cues. Patient remains below baseline and at risk for falls, recommend SNF level therapies at discharge. Subjective Supine upon arrival, pleasant and agreeable to PT. Pain: Pt denies any current pain. Medical Precautions: No active isolations Proper PPE donned/doffed in accordance with facility standards. Fall Risk: Mcleod Fall Risk Score: 45 (High Risk) Precautions/Restrictions: Lines/Drains/Airways: PIV Overall Cognitive Status: WFL Overall Orientation Status: Oriented to Person Family/Caregiver Present: none Objective Bed Mobility Supine to sit: Min Assist Rolling to left: Min Assist Scooting: Min Assist HOB elevated, use of bed rail, assistance for trunk elevation Transfers/Mobility Sit to stand: Min Assist Stand to sit: Min Assist Cues for UE placement and for anterior weight shifting Device(s) used: Front wheeled walker and Quad cane Ambulation Ambulation 1 Assistive device(s) used: Quad cane Assist level: Min Assist Distance (ft): 20ft Quality of gait: shuffling, uneven step length, wide ASHLEY, slow david, postural sway, instability through all phases. Patient requires frequent cues for proper use of device, some carry over noted. General instability and decreased balance noted. Ambulation 2 Assistive device(s) used: Front wheeled walker Assist level: Min Assist Distance (ft): 20ft, 45ft Quality of gait: reciprocal stepping, shuffling, slow david. Cues for proximity to device. Overall improved stability than with quad cane. Balance During Session: Posture: fair Sitting - Static: SBA Sitting - Dynamic: Contact Guard Standing - Static: Contact Guard Standing - Dynamic: Min Assist Exercises Exercises Knee Long Arc Quad: x10 reps seated Ankle Pumps: x10 reps seated Heart Failure on Admission Dyspnea: No Heart failure diagnosis: Yes Plan Continue acute PT per plan of care. Safety/Education Safety Safety Devices in place: All fall risk precautions in place, call light within reach, left in chair, chair alarm in place, gait belt, and nurse notified Restraints: No Education Transfers, gait, exercises, balance Outcome Measures AM-PAC AM-PAC Inpatient Mobility Raw Score (No Stairs) : 15 JH-HLM -HLM Score: Walked 25 ft or more (i.e. walked outside of room) Goals Patient Stated Goal: Get stronger. Go home. Encounter Problems Encounter Problems (Active) Mobility Patient will ambulate 60 x 2 feet with modified independence and rolling walker or quad cane in order to improve safety and independence with mobility. (Progressing) Start: 11/03/24 Expected End: 12/01/24 Transfers Patient will perform bed mobility with modified independence in order to improve independence and prepare for out of bed mobility. (Progressing) Start: 11/03/24 Expected End: 12/01/24 Patient will complete functional transfer with rolling walker or quad cane with modified independence in order to prepare for ambulation. (Progressing) Start: 11/03/24 Expected End: 12/01/24 Therapy Time Individual Co-treatment Time In 848 Time Out 0916 Minutes 27 Timed Code Treatment Minutes: 27 Minutes (Gait, FA) Mona Petty PTA Cosigned by Ashly Peraza PT at 11/05/2024 11:04 AM EDT Hospitalist Progress Note 11/04/2024 Subjective: Admit Date: 11/01/2024 PCP: Christy Rizzo MD [facility] Interval History: Patient is 69-year-old with history of diabetes mellitus, hypertension, dyslipidemia, hypothyroidism comes in the hospital not feeling well for the past few days. Patient was seen in the ER and noted to have hyperglycemia with blood sugar greater than 600. Initially placed on insulin drip. Also noted to have new onset A-fib and admitted to hospital for further evaluation. UA was abnormal. Consultation placed to cardiology. Started on Eliquis and metoprolol dose increased. 11/03: Patient alert, chart reviewed, overnight became confused but mental status improved today. Ambulating with physical therapy. Recommending SNF upon discharge. Blood sugars better controlled today. 11/04- pt denies any complaints except mild dysiuria, improved from before. no acute issues overnt. Objective: Vitals: BP 136/89 Pulse 87 Temp 36.2 C (97.1 F) (Temporal) Resp 15 Ht 5' 6 (1.676 m) Wt 218 lb 0.6 oz (98.9 kg) SpO2 97% BMI 35.19 kg/m Pulse Ox: SpO2 Av.4 % Min: 95 % Max: 97 % Supplemental O2: Pertinent physical exam: Physical Exam Cardiovascular: Rate and Rhythm: Tachycardia present. Rhythm irregular. Pulmonary: Effort: Pulmonary effort is normal. Breath sounds: Normal breath sounds. Abdominal: Palpations: Abdomen is soft. Neurological: General: No focal deficit present. Mental Status: She is oriented to person, place, and time. Assessment Acute, acute on chronic, unstable/uncontrolled chronic problems: New onset A-fib with intermittent RVR Diabetes mellitus with hyperglycemia SAÚL UTI Moderate aortic stenosis AMS Stable chronic problems affecting care, new non-acute diagnoses: Lymphedema Hypothyroidism Hypertension Hyperlipidemia Depression MDM/Plan Continue metoprolol, Eliquis, echocardiogram reviewed, follow-up with cardiology Continue with current dose of Lantus and preprandial insulin, continue sliding scale coverage Renal function slowly improved, discontinue IV fluids Will switch to keflex for uti, UC pos for E.coli Follow-up with geriatrics, monitor mental status closely Continue PT and OT - DVT prophylaxis: encourage ambulation and already anticoagulated Total time spent (which include face to face and non face to face encounters) : minutes Toxic drug monitoring/narrow therapeutic index drug monitoring : # Drug name : # Route administered : # Method of monitoring : Advance Directive: Full Code Anticipated Discharge - Date -TBD - Pending the following -placement - Location -[facility] Adult diet Regular; No Added Salt (3-4 gm); 3 carb choices (45 gm/meal) 24HR INTAKE/OUTPUT: Intake/Output Summary (Last 24 hours) at 11/04/2024 2240 Last data filed at 11/04/2024 2203 Gross per 24 hour Intake 120 ml Output 1550 ml Net -1430 ml LABS: CBC: Recent Labs 11/02/24 0406 11/03/24 0556 11/04/24 0427 WBC 9.5 8.8 8.1 RBC 4.33 4.43 4.07 HGB 12.5 12.8 11.8 HCT 36.2 37.8 35.5 MCV 83.6 85.3 87.2 RDW 13.4 13.6 13.6 PLT 169 200 103* BMP: Recent Labs 11/02/24 0045 11/02/24 0406 11/03/24 0556 NA 133* 133* 137 K 4.1 4.5 3.6 CL 100 102 105 CO2 20* 19* 19* BUN 31* 31* 31* CREATININE 1.38* 1.26* 1.03 GLUCOSE 255* 278* 238* CALCIUM 8.9 8.9 8.8 ANIONGAP 13 12 13 LIVER PROFILE: No results for input(s): AST, ALT, BILITOT, ALKPHOS, PROT in the last 72 hours. No lab exists for component: LABALBU PT/INR: No results for input(s): PROTIME, INR in the last 72 hours. CARDIAC ENZYMES: No results for input(s): TROPONINI in the last 72 hours. Procalcitonin: No results found for: PROCAL Medications: Scheduled apixaban, 5 mg, Oral, BID atorvastatin, 40 mg, Oral, Daily brimonidine, 1 drop, Both Eyes, TID cephalexin, 500 mg, Oral, BID insulin glargine, 24 Units, SubCUTAneous, Nightly insulin lispro, 0-18 Units, SubCUTAneous, TID WC And insulin lispro, 0-18 Units, SubCUTAneous, Nightly insulin lispro, 8 Units, SubCUTAneous, TID WC levothyroxine, 175 mcg, Oral, qAM AC metoprolol tartrate, 50 mg, Oral, BID timolol, 1 drop, Both Eyes, BID PRN PRN medications: acetaminophen, albuterol, dextrose, dextrose 5 % and sodium chloride 0.45 %, dextrose, dextrose, glucagon (rDNA), glucose, nitroglycerin, perflutren protein A microsphere (Optison) 3 mL in sodium chloride (PF) 0.9 % 10 mL IV, polyethylene glycol (PEG) 3350 Extended Emergency Contact Information Primary Emergency Contact: Roe Melendrez Mobile Relation: Niece Secondary Emergency Contact: Jose Potter Mobile Relation: Sibling Leanna Correia MD Division of Hospitalist Medicine [facility] Images from the original note were not included. [facility] Geriatric Medicine Inpatient Consult Service Admission Date: 11/01/2024 Assessment Principal Problem: Hyperglycemia Active Problems: Severe malnutrition (CMS/HCC) (HCC) Plan Acute metabolic encephalopathy - mentation improving - likely secondary to hyperglycemia, infection - continue to treat underlying infectious processes - Delirium protocol - If agitated, assess for and consider treating for pain - QTc= 463 - Monitor for constipation/urinary retention - last BM documented on 11/03 - Encourage PO intake, time up in chair, family visits, supervised ambulation, and sleep hygiene Debility Declining functional status -Acute on chronic- likely worsened in setting of acute illness/hospitalization - Even preceding her acute illness she had been looking into additional services to help at home - it appears that she was starting to need more help with things like ADLs. - Continue PT/OT as able- PT currently recommending SNF - Agree that she will benefit from skilled rehab at discharge Memory loss - Has expressed concern about her memory to her niece. - Cognitive decline likely acute on chronic with acute component being secondary to her hyperglycemia and urinary tract infection. - Also, appears to demonstrate confusion around her home medication regimen- likely needs increased oversight with this moving forward - Recommend outpatient follow up at the [facility] ([place] [facility]) Follow up: 1-2 days as needed Subjective: Chief complaint: AMS, hyperglycemia Geriatrics consulted for Failure to thrive, confusion HPI- patient is new to me, previously seen by inpatient geriatric consult service 69 y.o. year-old female presented from home for hyperglycemia and altered mental status on 11/01/2024 . Per review of history and physical she reported feeling poorly over the last few days. She endorsed increased weakness and increased urinary frequency. She independently took herself off of insulin in June because she felt that she could control her diabetes with diet and exercise. On arrival to the hospital her blood sugar was elevated to 617. She was started on an insulin drip and transition to subcutaneous insulin. Albumin was 2.5. BNP was 6801. High-sensitivity troponin was elevated. Urine culture grew E. coli. Hemoglobin A1c was 12.9. TSH was 3.03. Renal ultrasound showed mildly increased bilateral renal echotexture. Cardiology consulted for new onset atrial fibrillation. Interval history: remains on 4W VM currently in place Labs reviewed: sodium WNL at 137, Creat improved at 1.03 No documented overnight events- per cardiology note today- continue metoprolol tartrate to 50 mg BID, Patient reports that she is doing better today, she reports that she feels like her confusion has improved, she knows she is currently in the hospital for issues with her blood sugars- admits that she took herself off of insulin, reports some confusion about which medications she is supposed to take at home. Therapy recommendations: Pt recommending SNF Review of Systems Constitutional: Negative for decreased appetite and malaise/fatigue. Cardiovascular: Negative for chest pain. Respiratory: Negative for cough and shortness of breath. Musculoskeletal: Positive for arthritis. Gastrointestinal: Negative for nausea and vomiting. Neurological: Negative for dizziness. Psychiatric/Behavioral: Positive for altered mental status (improving). The patient does not have insomnia. Objective: BP 146/97 (BP Location: Right arm, Patient Position: Lying) Pulse 100 Temp 36.3 C (97.3 F) (Temporal) Resp 16 Ht 5' 6 (1.676 m) Wt 218 lb 0.6 oz (98.9 kg) SpO2 97% BMI 35.19 kg/m Current Facility-Administered Medications: albuterol 108 (90 Base) MCG/ACT inhaler 2 puff, 2 puff, Inhalation, q6h PRN, Jeremiah Coffman NP apixaban (Eliquis) tablet 5 mg, 5 mg, Oral, BID, Dominga Martinez MD, 5 mg at 11/04/24814 atorvastatin (Lipitor) tablet 40 mg, 40 mg, Oral, Daily, Jeremiah Coffman NP, 40 mg at 11/04/24814 brimonidine (AlphaGAN) 0.2 % ophthalmic solution 1 drop, 1 drop, Both Eyes, TID, Jeremiah Coffman NP, 1 drop at 11/04/24815 cephalexin (Keflex) capsule 500 mg, 500 mg, Oral, BID, Leanna Correia MD dextrose 10 % infusion, 200 mL/hr, IntraVENous, Continuous PRN, Jeremiah Coffman NP dextrose 5 % and sodium chloride 0.45 % infusion, 250 mL/hr, IntraVENous, Continuous PRN, Jeremiah Coffman NP dextrose 5 % infusion, 100 mL/hr, IntraVENous, PRN, Jeremiah Coffman NP dextrose 50 % solution 12.5 g, 12.5 g, IntraVENous, PRN, Jeremiah Coffman NP glucagon (human recombinant) injection 1 mg, 1 mg, IntraMUSCular, PRN, Jeremiah Coffman NP glucose oral gel 15 g, 15 g, Oral, PRN, Jeremiah Coffman NP insulin glargine (Lantus) injection 24 Units, 24 Units, SubCUTAneous, Nightly, Rock Esqueda MD, 24 Units at 11/03/242141 Insulin Lispro (Humalog) injection 0-18 Units, 0-18 Units, SubCUTAneous, TID WC, 3 Units at 11/04/24 1228 AND Insulin Lispro (Humalog) injection 0-18 Units, 0-18 Units, SubCUTAneous, Nightly, Jeremiah Coffman NP, 6 Units at 11/03/242141 Insulin Lispro (Humalog) injection 8 Units, 8 Units, SubCUTAneous, TID WC, Rock Esqueda MD, 8 Units at 11/04/24 1228 levothyroxine (Synthroid, Levoxyl) tablet 175 mcg, 175 mcg, Oral, qAM AC, Jeremiah Coffman NP, 175 mcg at 11/04/24 0557 metoprolol tartrate (Lopressor) tablet 50 mg, 50 mg, Oral, BID, Carli Aldrich APRN - 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, 50 mg at 11/04/24 0815 nitroglycerin (Nitrostat) SL tablet 0.4 mg, 0.4 mg, SubLINGual, q5 min PRN, Jeremiah Coffman NP perflutren protein A microsphere (Optison) 3 mL in sodium chloride (PF) 0.9 % 10 mL IV, 0-10 mL, IntraVENous, Once PRN, Dominga Martinez MD polyethylene glycol (PEG) 3350 (Miralax) packet 17 g, 17 g, Oral, Daily PRN, Jeremiah Coffman NP timolol (Timoptic) 0.5 % ophthalmic solution 1 drop, 1 drop, Both Eyes, BID, Jeremiah Coffman NP, 1 drop at 11/04/24 0817 Physical Exam Constitutional: Comments: Lying in bed, alert and cooperative with exam Eyes: Comments: glasses Cardiovascular: Rate and Rhythm: Normal rate. Heart sounds: Murmur heard. Pulmonary: Effort: Pulmonary effort is normal. No respiratory distress. Abdominal: General: Bowel sounds are normal. Palpations: Abdomen is soft. Tenderness: There is no abdominal tenderness. Musculoskeletal: Right lower leg: No edema. Left lower leg: No edema. Neurological: Mental Status: She is alert. She is confused. Comments: Alert and oriented to self, place- looks to white board for date Follows commands Psychiatric: Attention and Perception: Attention normal. Behavior: Behavior is not agitated. Behavior is cooperative. Cognition and Memory: Cognition is impaired. Labs and Imaging: Lab Results Component Value Date WBC 8.1 11/04/2024 HGB 11.8 11/04/2024 HCT 35.5 11/04/2024 MCV 87.2 11/04/2024 PLT 103 (L) 11/04/2024 Lab Results Component Value Date NA 137 11/03/2024 K 3.6 11/03/2024 CL 105 11/03/2024 CO2 19 (L) 11/03/2024 BUN 31 (H) 11/03/2024 CREATININE 1.03 11/03/2024 GLUCOSE 238 (H) 11/03/2024 CALCIUM 8.8 11/03/2024 PROT 7.3 11/01/2024 BILITOT 1.3 (H) 11/01/2024 ALKPHOS 99 11/01/2024 AST 20 11/01/2024 ALT 9 11/01/2024 Lab Results Component Value Date VITD25 22 (L) 04/06/2021 TSH 3.03 11/02/2024 UA: Lab Results Component Value Date COLORU Yellow 11/01/2024 GLUCOSEU >1,000 (A) 11/01/2024 UROBILINOGEN Normal 11/01/2024 === 11/01/24 === CT HEAD WO IV CONTRAST - Impression - No acute intracranial abnormality. Diffuse cortical volume loss and chronic small vessel ischemic changes. Report Dictated on Electronically Signed By: Anastasia Spencer MD Electronically Signed Date/Time: 11/01/2024 7:51 PM EDT No results found for this or any previous visit from the past 365 days. === 11/01/24 === XR CHEST 1 VIEW - Impression - No radiographic acute cardiopulmonary process. Report Dictated on Electronically Signed By: Claudette Nunez MD Electronically Signed Date/Time: 11/01/2024 6:25 PM EDT Reviewed: current medication list, allergies, recent labs, several last encounter notes [facility] Cardiology /Electrophysiology Progress Note Primary occupational health coordinator: N/A HPI / Interval History: Dameon Potter is a 69 y.o. female with history of aortic stenosis, asthma, GERD, HLD, HTN, hypothyroidism, RADHA, morbid obesity s/p LRYGB in 2018, and uncontrolled DMII. Echo 02/2024-LVEF 68% with moderate LVH and moderate aortic stenosis with mean gradient 25 mmhg. She was admitted to [facility] 11/02 with 3-4 week history of not feeling well with reports with fatigue and generalized weakness. Initial MBS 614. She reported not taking insulin as prescribed. EKG revealed newly diagnosed atrial fibrillation with RVR (VR 139 bpm). Telemetry showed improved VR 70-90 bpm. She was evaluated by cardiology yesterday for AFib management and was continued on metoprolol tartrate and started on Eliquis. She stated an echo was ordered at recent PCP visit due to murmur but she missed that appt last week. Today, she is resting in bed. She is unaware of her AFib. She has generalized weakness and fatigue. She is somewhat debilitated. Appetite is good. Glucose slowly improving.She denies CP, SOB, PND, orthopnea, bloating, lightheadedness, or palpitations. She has chronic severe BLLE lymphedema which is at baseline. Assessment/Plan New persistent atrial fibrillation -Weakness/fatigue may be symptoms of her atrial fibrillation though she has multiple other medical issues which may be contributing, including uncontrolled DM. -Continue eliquis 5 mg BID for cardioembolic protection. -Pursing rate control for now in setting of UTI. VR mostly 80s and controlled. BP stable. -Continue metoprolol tartrate to 50 mg BID. -TTE today shows hyperdynamic LVEF >75% with increased LV wall thickness. -TSH normal. Electrolytes stable yesterday, await [facility] today. Hx of moderate aortic stenosis by echo 03/14/24 -TTE shows moderate aortic stenosis. Measured aortic valve peak velocity and mean gradient are decreased in the current study compared with prior study, likely from decreased stroke volume secondary to atrial fibrillation. -NT pro BNP 6800. CXR clear. IVC is dilated with RAP ~8 mmhg. IV fluids stopped 11/03. -Monitor volume status closely and give IV lasix PRN volume retention. Volume status difficult to assess with body habitus but denies any SOB and her edema is at baseline. HTN -Overall improved and controlled. -Continue metoprolol as ordered -HOLD olmesartan with adjusting metoprolol as above. -No coreg at discharge. E.coli UTI -On cephalexin. Uncontrolled DMII -HA1c 12.9% -On insulin -Mgt per primary. Chronic BLLE lymphedema (severe) -At baseline per pt report. No pitting edema. Social issues -Lives alone. Unable to care for self. Received [facility]. Plans [place] Goals of care -Pt follows with palliative care OP for unclear reasons. Her mobility is limited. -Remains full code. Updated Dr. Garcia. Continue above plan. She may be best served with visiting physician services at the house once released from SNF if mobility remains an issue. Cardiology Discharge/Sign-off Recommendations Cardiology medications to continue: [x] All cardiac medications as ordered currently [] Admission cardiac medications [] Please start the following medications on discharge: [] Please stop the following medications on discharge: Followup testing recommended as an outpatient: [] To be arranged by Inpatient provider/PCP [] Will be arranged by Cardiology Cardiology followup: [] Not needed [] Recommend primary service arrange f/u with patient's outpatient occupational health coordinator 1-2 wks. [] Recommended; unable to arrange at this time, will arrange post-discharge [x] Arranged as follows: Carli Aldrich, 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 12/02/24 at 10 AM If there are any questions/concerns, please contact the covering provider. If no answer by Secure Chat, please call the cardiology office to obtain appropriate covering EMPLOYMENT SPECIALIST/physician. Current Medications: apixaban, 5 mg, Oral, BID atorvastatin, 40 mg, Oral, Daily brimonidine, 1 drop, Both Eyes, TID cephalexin, 500 mg, Oral, BID insulin glargine, 24 Units, SubCUTAneous, Nightly insulin lispro, 0-18 Units, SubCUTAneous, TID WC And insulin lispro, 0-18 Units, SubCUTAneous, Nightly insulin lispro, 8 Units, SubCUTAneous, TID WC levothyroxine, 175 mcg, Oral, qAM AC metoprolol tartrate, 50 mg, Oral, BID timolol, 1 drop, Both Eyes, BID Current Infusion Medications: dextrose, 200 mL/hr dextrose 5 % and sodium chloride 0.45 %, 250 mL/hr Home medications: Current Outpatient Medications Medication Instructions albuterol 108 (90 Base) MCG/ACT inhaler 2 puffs, Inhalation, Every 6 hours PRN atorvastatin (Lipitor) 40 MG tablet Daily BD Insulin Syringe U/F 30G X 1/2 0.5 ML misc 2 times daily with insulin brimonidine (AlphaGAN P) 0.1 % ophthalmic solution 1 drop, Both Eyes, 3 times daily carvedilol (COREG) 12.5 mg, Oral, 2 times daily with meals cholecalciferol (VITAMIN D-3) 2,000 Units, Oral, Daily citalopram (CeleXA) 20 MG tablet Oral, Every 24 hours Continuous Glucose Sensor (FreeStyle Satya 3 Sensor) misc 1 Device, Does not apply, Every 14 days cyanocobalamin (VITAMIN B-12) 1,000 mcg, Oral, Weekly EPINEPHRINE HCL, ANAPHYLAXIS, IM IntraMUSCular fluconazole (Diflucan) 200 MG tablet 1 tablet, Oral, Daily, PRN yeast infections FREESTYLE LITE test strip 1 each, Other, 4 times daily, As directed glucose 16 g, Oral, As needed hydrocortisone (West-Dmitri) 0.2 % cream Topical, Every 12 hours insulin lispro (HUMALOG) 16 Units, SubCUTAneous, Daily With Dinner insulin pen needle 32G x 4 mm mis Use as instructed 2 times daily Lantus SoloStar 16 Units, SubCUTAneous, Nightly levothyroxine (SYNTHROID, LEVOXYL) 175 mcg, Oral, Daily before breakfast loperamide (IMODIUM) 2 mg, Oral, PRN mirabegron ER (Myrbetriq) 50 MG 24 hr tablet Every 24 hours, PRN multivitamin, Pediatric, (Flintstones Gummies) chewable tablet 2 tablets, Oral, With iron olmesartan (BENICAR) 40 mg, Oral, Daily PROTEIN PO Oral sulfamethoxazole-trimethoprim (Bactrim DS) 800-160 MG tablet 1 tablet, Oral, Every 12 hours timolol (Timoptic) 0.5 % ophthalmic solution 1 drop, Both Eyes, 2 times daily Physical Examination: Vitals: 11/03/24 2315 11/04/24 0330 11/04/24 0555 11/04/24 0807 BP: 131/86 142/87 137/85 BP Location: Patient Position: Pulse: 78 100 93 Resp: 17 17 15 Temp: 36.3 C (97.3 F) 36.5 C (97.7 F) 36.9 C (98.5 F) TempSrc: Temporal Temporal Temporal SpO2: 97% 96% 95% Weight: 218 lb 0.6 oz (98.9 kg) Height: Intake/Output Summary (Last 24 hours) at 11/04/2024 1055 Last data filed at 11/04/2024 0555 Gross per 24 hour Intake 120 ml Output 750 ml Net -630 ml Wt Readings from Last 3 Encounters: 11/04/24 218 lb 0.6 oz (98.9 kg) 03/26/24 255 lb 4.8 oz (116 kg) 03/14/24 255 lb (116 kg) Physical Exam Vitals and nursing note reviewed. Constitutional: General: She is not in acute distress. Appearance: Normal appearance. She is not ill-appearing, toxic-appearing or diaphoretic. HENT: Head: Normocephalic and atraumatic. Nose: Nose normal. Neck: Vascular: No JVD. Cardiovascular: Rate and Rhythm: Normal rate. Rhythm irregular. Pulses: Carotid pulses are 2+ on the right side and 2+ on the left side. Radial pulses are 2+ on the right side and 2+ on the left side. Popliteal pulses are 2+ on the right side and 2+ on the left side. Dorsalis pedis pulses are 2+ on the right side and 2+ on the left side. Heart sounds: Murmur (right 2nd ICS) heard. No friction rub. No gallop. Pulmonary: Effort: Pulmonary effort is normal. No respiratory distress. Breath sounds: Normal breath sounds. No wheezing, rhonchi or rales. Chest: Chest wall: No tenderness. Abdominal: General: Bowel sounds are normal. There is no distension. Palpations: Abdomen is soft. There is no mass. Tenderness: There is no abdominal tenderness. Musculoskeletal: General: No swelling or deformity. Cervical back: Normal range of motion and neck supple. Right lower leg: Edema present. Left lower leg: Edema present. Comments: Lymphedema to BLLE noted. Thighs are more swollen. Area of indentation noted below the knee. Pt states she was wearing compression stockings for a while. Skin on legs dry/flaky. Skin: General: Skin is warm and dry. Capillary Refill: Capillary refill takes less than 2 seconds. Findings: No rash. Neurological: General: No focal deficit present. Mental Status: She is alert and oriented to person, place, and time. Mental status is at baseline. Motor: No weakness. Gait: Gait normal. Psychiatric: Mood and Affect: Mood normal. Behavior: Behavior normal. Thought Content: Thought content normal. Judgment: Judgment normal. Laboratory Tests: TROPONIN I, CONVENTIONAL SENSITIVITY No results found for: CKTOTAL, CKMB, CKMBINDEX, TROPONINI TROPONIN I, HIGH SENSITIVITY Troponin HS Serial Baseline Date Value Ref Range Status 11/01/2024 122 (H) <=14 ng/L Final Comment: In individuals presenting with symptoms > 2h, a baseline troponin <= 5 ng/L suggests acute cardiac injury is unlikely and further serial testing is generally not indicated. 2h Troponin HS (Serial 2nd Troponin) Date Value Ref Range Status 11/01/2024 127 (H) <=14 ng/L Final Comment: Rising or falling troponin delta between 2 - 15 ng/L as compared to baseline value requires a 3rd serial troponin No results found for: TROPDELTBASE 4h Troponin HS (Serial 3rd Troponin) Date Value Ref Range Status 11/01/2024 128 (H) <=14 ng/L Final Comment: Rising or falling troponin delta below 2 ng/L as compared to 2h troponin value suggests that acute cardiac injury is unlikely. No results found for: TROPDELTSEC Recent Labs 11/01/24 1809 11/01/24 2208 11/02/24 0045 11/02/24 0406 11/03/24 0556 NA 128* 134* 133* 133* 137 K 4.8 3.7 4.1 4.5 3.6 CL 95* 102 100 102 105 CO2 11* 17* 20* 19* 19* BUN 30* 31* 31* 31* 31* CREATININE 1.62* 1.43* 1.38* 1.26* 1.03 Recent Labs 11/01/24 1809 11/02/24 0406 11/03/24 0556 11/04/24 0427 WBC 10.1 9.5 8.8 8.1 HGB 14.2 13.6 12.5 12.8 11.8 HCT 39.5 36.2 37.8 35.5 MCV 84.2 83.6 85.3 87.2 PLT 191 169 200 103* Recent Labs 11/01/241808 BNP 6,801* No results for input(s): TRIG, HDL, LDLCALC, CHOL in the last 72 hours. Lab Results Component Value Date LDLCHOLESTER 72 10/06/2022 Lab Results Component Value Date TSH 3.03 11/02/2024 EF BP Date Value Ref Range Status 11/03/2024 61 55 - 100 % Final 11/01/24 TRANSTHORACIC ECHOCARDIOGRAM (TTE) COMPLETE (CONTRAST/BUBBLE/3D PRN) 11/03/2024 12:48 PM (Final) Interpretation Summary Left Ventricle: Left ventricle is smaller than normal. Increased wall thickness. Hyperdynamic left ventricular systolic function. The EF by visual approximation is >75%. Normal wall motion. Right Ventricle: Right ventricle size is normal. Normal systolic function. Aortic Valve: Moderate stenosis of the aortic valve. AV mean gradient is 18 mmHg. AV area by continuity VTI is 1.3 cm2. AV Peak Velocity is 2.7 m/s. In comparison to the echo from 02/2024, the patient is in atrial fibrillation in the current study and was previously in a normal rhythm. The measured aortic valve peak velocity and mean gradient are decreased in the current study compared with the prior; this may be due to decreased stroke volume secondary to atrial fibrillatoin. Signed by: Jorden Greenberg MD on 11/03/2024 12:48 PM Cardiac Tests: Last EC11/02/24 Atrial fibrillation Left anterior fascicular block LVH with secondary repolarization abnormality Anterior Q waves, possibly due to LVH Last echocardiogram: 11/01/24 TRANSTHORACIC ECHOCARDIOGRAM (TTE) COMPLETE (CONTRAST/BUBBLE/3D PRN) 11/03/2024 12:48 PM (Final) Interpretation Summary Left Ventricle: Left ventricle is smaller than normal. Increased wall thickness. Hyperdynamic left ventricular systolic function. The EF by visual approximation is >75%. Normal wall motion. Right Ventricle: Right ventricle size is normal. Normal systolic function. Aortic Valve: Moderate stenosis of the aortic valve. AV mean gradient is 18 mmHg. AV area by continuity VTI is 1.3 cm2. AV Peak Velocity is 2.7 m/s. In comparison to the echo from 02/2024, the patient is in atrial fibrillation in the current study and was previously in a normal rhythm. The measured aortic valve peak velocity and mean gradient are decreased in the current study compared with the prior; this may be due to decreased stroke volume secondary to atrial fibrillatoin. Signed by: Jorden Greenberg MD on 11/03/2024 12:48 PM Telemetry findings reviewed: atrial fibrillation, VR 80s AMAURY Polk CNP Date Of Service 11/04/2024 Hospitalist Progress Note 11/03/2024 Subjective: Admit Date: 11/01/2024 PCP: Christy Rizzo MD [id number] Interval History: Patient is 69-year-old with history of diabetes mellitus, hypertension, dyslipidemia, hypothyroidism comes in the hospital not feeling well for the past few days. Patient was seen in the ER and noted to have hyperglycemia with blood sugar greater than 600. Initially placed on insulin drip. Also noted to have new onset A-fib and admitted to hospital for further evaluation. UA was abnormal. Consultation placed to cardiology. Started on Eliquis and metoprolol dose increased. 11/03: Patient alert, chart reviewed, overnight became confused but mental status improved today. Ambulating with physical therapy. Recommending SNF upon discharge. Blood sugars better controlled today. Objective: Vitals: BP 119/71 (BP Location: Left arm, Patient Position: Sitting) Pulse 78 Temp 36 C (96.8 F) (Temporal) Resp 20 Ht 5' 6 (1.676 m) Wt 214 lb 15.2 oz (97.5 kg) SpO2 99% BMI 34.69 kg/m Pulse Ox: SpO2 Av % Min: 92 % Max: 99 % Supplemental O2: Pertinent physical exam: Physical Exam Cardiovascular: Rate and Rhythm: Tachycardia present. Rhythm irregular. Pulmonary: Effort: Pulmonary effort is normal. Breath sounds: Normal breath sounds. Abdominal: Palpations: Abdomen is soft. Neurological: General: No focal deficit present. Mental Status: She is oriented to person, place, and time. Assessment Acute, acute on chronic, unstable/uncontrolled chronic problems: New onset A-fib with intermittent RVR Diabetes mellitus with hyperglycemia SAÚL Questionable UTI Moderate aortic stenosis AMS Stable chronic problems affecting care, new non-acute diagnoses: Lymphedema Hypothyroidism Hypertension Hyperlipidemia Depression MDM/Plan Continue metoprolol, Eliquis, echocardiogram reviewed, follow-up with cardiology Continue with current dose of Lantus and preprandial insulin, continue sliding scale coverage Renal function slowly improved, discontinue IV fluids Continue empiric antibiotics for now, follow cultures. Follow-up with geriatrics, monitor mental status closely Continue PT and OT - DVT prophylaxis: encourage ambulation and already anticoagulated Total time spent (which include face to face and non face to face encounters) : minutes Toxic drug monitoring/narrow therapeutic index drug monitoring : # Drug name : # Route administered : # Method of monitoring : Advance Directive: Full Code Anticipated Discharge - Date -TBD - Pending the following -clinical progress - Location -[facility] Adult diet Regular; No Added Salt (3-4 gm); 3 carb choices (45 gm/meal) 24HR INTAKE/OUTPUT: Intake/Output Summary (Last 24 hours) at 11/03/2024 1336 Last data filed at 11/03/2024 0600 Gross per 24 hour Intake 1126.25 ml Output -- Net 1126.25 ml LABS: CBC: Recent Labs 11/01/24 1809 11/02/24 0406 11/03/24 0556 WBC 10.1 9.5 8.8 RBC 4.69 4.33 4.43 HGB 14.2 13.6 12.5 12.8 HCT 39.5 36.2 37.8 MCV 84.2 83.6 85.3 RDW 13.4 13.4 13.6 PLT 191 169 200 BMP: Recent Labs 11/02/24 0045 11/02/24 0406 11/03/24 0556 NA 133* 133* 137 K 4.1 4.5 3.6 CL 100 102 105 CO2 20* 19* 19* BUN 31* 31* 31* CREATININE 1.38* 1.26* 1.03 GLUCOSE 255* 278* 238* CALCIUM 8.9 8.9 8.8 ANIONGAP 13 12 13 LIVER PROFILE: Recent Labs 11/01/24 1809 AST 20 ALT 9 BILITOT 1.3* ALKPHOS 99 PROT 7.3 PT/INR: No results for input(s): PROTIME, INR in the last 72 hours. CARDIAC ENZYMES: No results for input(s): TROPONINI in the last 72 hours. Procalcitonin: No results found for: PROCAL Medications: Scheduled apixaban, 5 mg, Oral, BID atorvastatin, 40 mg, Oral, Daily brimonidine, 1 drop, Both Eyes, TID cefTRIAXone, 1,000 mg, IntraVENous, q24h insulin glargine, 24 Units, SubCUTAneous, Nightly insulin lispro, 0-18 Units, SubCUTAneous, TID WC And insulin lispro, 0-18 Units, SubCUTAneous, Nightly insulin lispro, 8 Units, SubCUTAneous, TID WC levothyroxine, 175 mcg, Oral, qAM AC metoprolol tartrate, 50 mg, Oral, BID timolol, 1 drop, Both Eyes, BID PRN PRN medications: albuterol, dextrose, dextrose, dextrose 5 % and sodium chloride 0.45 %, dextrose, dextrose, dextrose, glucagon (rDNA), glucose, nitroglycerin, perflutren protein A microsphere (Optison) 3 mL in sodium chloride (PF) 0.9 % 10 mL IV, polyethylene glycol (PEG) 3350 Extended Emergency Contact Information Primary Emergency Contact: Tariq SnowRoe Mobile Relation: Niece Secondary Emergency Contact: Jose Potter Mobile Relation: [place] Guzmán MD Division of Hospitalist Medicine [facility] Images from the original note were not included. PHYSICAL THERAPY [facility] Initial Evaluation Name/MRN: Dameon Potter ([id number]) Evaluation Date: 11/03/2024 Date of : 1955 Admission Date: 11/01/2024 4:42 PM Age: 69 y.o. Room[facility]Bed: [facility] A Discharge Recommendation: Half-Way Facility Equipment Needed: No Assessment IMPRESSION: Patient with weakness limiting mobility. Pt reports independent mobility with use of a quad cane or wheeled walker prior to admit. Currently requiring min assist for transfers and ambulation with a wheeled walker. Recommend SNF at discharge. Admitting Diagnosis: hyperglycemia, acute cystitis Prognosis: good Performance Deficits /Impairments: Decreased Functional Mobility, Decreased Strength, and Decreased Balance Decision Making: Low Complexity Subjective Patient in chair. Agreeable to PT. Pain: Pt denies any current pain. Past Medical History: Past Medical History: Diagnosis Date Anxiety Asthma Deficiency of nutrient elements Depression Dry eye Fatigue Gastritis GERD (gastroesophageal reflux disease) Glaucoma Glaucoma Hyperlipidemia Hypertension Hypothyroid Hypothyroidism Incontinence Intestinal malabsorption Lymph edema Morbid obesity (HCC) Obstructive sleep apnea PMB (postmenopausal bleeding) Polycystic ovarian syndrome Psoriasis SOB (shortness of breath) on exertion Thyroglossal duct cyst Type 2 diabetes mellitus without complication (HCC) Urinary tract infection Uterine cancer (CMS/HCC) (HCC) Vitamin D deficiency 05/10/2017 Zinc deficiency 06/21/2018 Past Surgical History: Past Surgical History: Procedure Laterality Date CATARACT EXTRACTION Bilateral CHOLECYSTECTOMY 01/29/2018 w/ LRYGB and Umbilical Hernia repair - [facility] DILATION AND CURETTAGE OF UTERUS 09/03/2020 with hysteroscopy GASTRIC BYPASS 01/29/2018 LRYGB w/ Lap Aggie and Umbilical Hernia repair, [facility]akis GASTRIC BYPASS HYSTERECTOMY 09/30/2020 [facility]/BSO; Dr. Cuauhtemoc Stubbs MOUTH SURGERY gum removal to expose wisdom teeth THYROGLOSSAL DUCT EXCISION 2000 [facility]- Dr. Vin Keating THYROIDECTOMY UMBILICAL HERNIA REPAIR 01/29/2018 w/ LRYGB and Lap Aggie - [facility]akis UPPER GASTROINTESTINAL ENDOSCOPY 03/20/2017 pre op, [facility]ografakis WISDOM TOOTH EXTRACTION 2013 [facility] Admission Diagnosis: Patient Active Problem List Diagnosis Date Noted Hyperglycemia 11/02/2024 Hypertension 11/01/2023 Lymphedema of both lower extremities 11/01/2023 MDD (major depressive disorder) 11/01/2023 Urinary incontinence 11/01/2023 Asthma 11/01/2023 Vaginal candidiasis 11/01/2023 Chronic rhinitis 11/01/2023 DM retinopathy (HCC) 11/01/2023 Diastolic heart failure (HCC) 11/01/2023 HLD (hyperlipidemia) 11/01/2023 RADHA (obstructive sleep apnea) 11/01/2023 Polycystic ovarian syndrome 11/01/2023 Open-angle glaucoma 11/01/2023 Non-pressure chronic ulcer left lower leg, 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) 04/09/2023 Corneal epithelial basement membrane dystrophy 10/03/2022 Asthma without status asthmaticus 07/05/2022 Candidal vulvovaginitis 07/05/2022 Cardiomegaly 07/05/2022 Diabetic retinopathy associated with type 2 diabetes mellitus (HCC) 07/05/2022 Diastolic dysfunction 07/05/2022 Malignant neoplasm of uterus (HCC) 07/05/2022 Malnutrition of mild degree (Bianchi: 75% to less than 90% of standard weight) ([facility]) 07/05/2022 Moderate recurrent major depression ([facility]) 07/05/2022 Polycystic ovaries 07/05/2022 Thyroglossal duct cyst 07/05/2022 Type 2 diabetes mellitus with hyperglycemia ([facility]) 07/05/2022 Postmenopausal bleeding 09/03/2020 Dry eye syndrome of bilateral lacrimal glands 11/04/2018 Nuclear sclerotic cataract, bilateral 05/24/2017 Posterior subcapsular age-related cataract of left eye 05/22/2017 Primary open angle glaucoma of both eyes, mild stage 11/13/2016 Cortical cataract of both eyes 05/05/2015 Refractive error 05/05/2015 Uncontrolled type 2 diabetes mellitus 05/05/2015 Chronic sinusitis 03/12/2013 Obesity with body mass index greater than 30 10/01/2020 Endometrial cancer ([facility]) ([facility]) 09/30/2020 Zinc deficiency 06/21/2018 Fatigue 06/20/2018 Deficiency of nutrient elements 02/06/2018 Intestinal malabsorption 02/06/2018 Uncontrolled type 2 diabetes mellitus with hyperglycemia, with long-term current use of insulin ([facility]) 01/31/2018 Morbid obesity ([facility]) 01/31/2018 Hepatic steatosis 01/29/2018 Calculus of gallbladder with chronic cholecystitis without obstruction 01/29/2018 Essential hypertension, benign 01/29/2018 Mixed hyperlipidemia 01/29/2018 Lymphedema 12/27/2017 Vitamin D deficiency 12/27/2017 PND (post-nasal drip) 04/12/2017 Gastritis without bleeding 03/20/2017 Gastroesophageal reflux disease without esophagitis 03/20/2017 Obstructive sleep apnea 12/26/2016 SOB (shortness of breath) on exertion 12/26/2016 Hypothyroidism 04/22/2015 OAB (overactive bladder) 03/24/2015 Medical Precautions: No active isolations Proper PPE donned/doffed in accordance with facility standards. Fall Risk: [facility] Risk Score: 85 (High Risk) Precautions/Restrictions: Lines/Drains/Airways: PIV Family/Caregiver Present: none Overall Cognitive Status: WFL Overall Orientation Status: Oriented x4 Vision: Not Assessed Hearing: normal Social/Functional History Prior Level of Function Prior Level of ADL Function: Independent Prior Level of Mobility: Independent; Device: Front wheeled walker and Quad cane Prior Level of Transfers: Independent Objective Lower Extremity Assessment AROM: WFL with respect to soft tissue restrictions PROM: Not assessed this session Strength: Exceptions: Grossly 4- to 4/5 Sensation: WFL Balance: Balance During Session: Posture: poor Sitting - Static: Modified Independent Sitting - Dynamic: Supervision Standing - Static: Contact Guard Standing - Dynamic: Min Assist Bed Mobility: Pt up in chair upon arrival Transfers Sit to stand: Min Assist Stand to sit: Contact Guard Ambulation Ambulation 1 Assistive device(s) used: Front wheeled walker Assist level: Min Assist Distance (ft): 40 Quality of gait: slow david, instability through all phases, flexed posture - cues to correct; cueing to stay in base of support of walker Exercises QS GS Seated hip flexion LAQ Ankle pumps All ex completed x 10 reps, bilateral LE. Heart Failure on Admission Dyspnea: No Heart failure diagnosis: Yes Outcome Measures AM-PAC How much HELP from another person do you currently need Turning from your back to your side while in a flat bed without using bedrails?: A Little Moving from lying on your back to sitting on the side of a flat bed without using bedrails?: A Little Moving to and from a bed to a chair (including a wheelchair)?: A Little Standing up from a chair using your arms (wheelchair or bedside chair)?: A Little Walking in a hospital room?: A Little Stair climbing assessed?: No AM-PAC Inpatient Mobility Raw Score (No Stairs) : 15 [facility] Score: Walked 25 ft or more (i.e. walked outside of room) Plan Pt would benefit from skilled acute PT services to address Strengthening, ROM, Gait Training, Balance Training, Functional Mobility Training, Safety Education and Training, Equipment Evaluation/Education, and Patient/Caregiver Training. Frequency: 2x/week for 4 weeks Barriers: None Safety/Education Safety Safety Devices in place: call light within reach, left in chair, chair alarm in place, gait belt, and video monitor Restraints: No Education Education Given To: patient Education Provided: Plan of Care and Discharge Recommendations Education Method: Verbal Barriers to Learning: None Education Outcome: Verbalized Understanding Goals Patient Stated Goal: Get stronger. Go home. Encounter Problems Encounter Problems (Active) Mobility Patient will ambulate 60 x 2 feet with modified independence and rolling walker or quad cane in order to improve safety and independence with mobility. Start: 11/03/24 Expected End: 12/01/24 Transfers Patient will perform bed mobility with modified independence in order to improve independence and prepare for out of bed mobility. Start: 11/03/24 Expected End: 12/01/24 Patient will complete functional transfer with rolling walker or quad cane with modified independence in order to prepare for ambulation. Start: 11/03/24 Expected End: 12/01/24 Therapy Time Individual Co-Treatment Co-Evaluation Time In 1038 Time Out 1104 Minutes 26 Timed Code Treatment Minutes: 9 Minutes (TP) Mahsa Epstein PT Patient's Physical Therapy Plan of Care supervision is transferred to a [facility] Therapy Services Physical Therapist. Goals and/or treatment plan was established in collaboration with patient/family/other representatives. [facility] Cardiology /Electrophysiology Progress Note HPI / Interval History: Dameon Potter is a 69 y.o. female with history of aortic stenosis, asthma, GERD, HLD, HTN, hypothyroidism, RADHA, morbid obesity s/p LRYGB in 2018, and uncontrolled DMII. Echo 02/2024-LVEF 68% with moderate LVH and moderate aortic stenosis with mean gradient 25 mmhg. She was admitted to [facility] 11/02 with 3-4 week history of not feeling well with reports with fatigue and generalized weakness. Initial MBS 614. She reported not taking insulin as prescribed. EKG revealed newly diagnosed atrial fibrillation with RVR (VR 139 bpm). Telemetry showed improved VR 70-90 bpm. She was evaluated by cardiology yesterday for AFib management and was continued on metoprolol tartrate and started on Eliquis. She stated an echo was ordered at recent PCP visit due to murmur but she missed that appt last week. Today, pt is sitting in the chair. Reports some mild fatigue and generalized weakness. She denies CP, SOB, PND, orthopnea, bloating, lightheadedness, or palpitations. She has chronic severe BLLE lymphedema which is at baseline. Assessment/Plan New persistent atrial fibrillation -Weakness/fatigue may be symptoms of her atrial fibrillation though she has multiple other medical issues which may be contributing, including uncontrolled DM. -Continue eliquis 5 mg BID for cardioembolic protection. -Pursing rate control for now in setting of UTI. HR uncontrolled (100-110s with multiple RVR events 130-150s). Increase metoprolol tartrate to 50 mg BID. -TTE today shows hyperdynamic LVEF >75% with increased LV wall thickness. -TSH normal. Electrolytes stable. Hx of moderate aortic stenosis by echo 03/14/24 -TTE shows moderate aortic stenosis. Measured aortic valve peak velocity and mean gradient are decreased in the current study compared with prior study, likely from decreased stroke volume secondary to atrial fibrillation. -NT pro BNP 6800. CXR clear. IVC is dilated with RAP ~8 mmhg. Recommend stopping IV fluids. -Monitor volume status closely and give IV lasix PRN volume retention. Volume status difficult to assess with body habitus. HTN -BP labile with some soft and high readings. -Continue metoprolol as ordered -HOLD olmesartan with adjusting metoprolol as above. -DC home coreg with metoprolol use. E.coli UTI -on ceftriaxone Uncontrolled DMII -HA1c 12.9% -On insulin -Mgt per primary. Chronic BLLE lymphedema (severe) -At baseline per pt report. No pitting edema. Social issues -Lives alone. Unable to care for self. Advise PT/OT eval. May need placement or assisted living. Will d/w Dr. Garcia Current Medications: apixaban, 5 mg, Oral, BID atorvastatin, 40 mg, Oral, Daily brimonidine, 1 drop, Both Eyes, TID cefTRIAXone, 1,000 mg, IntraVENous, q24h insulin glargine, 24 Units, SubCUTAneous, Nightly insulin lispro, 0-18 Units, SubCUTAneous, TID And insulin lispro, 0-18 Units, SubCUTAneous, Nightly insulin lispro, 8 Units, SubCUTAneous, TID WC levothyroxine, 175 mcg, Oral, qAM AC metoprolol tartrate, 25 mg, Oral, BID timolol, 1 drop, Both Eyes, BID Current Infusion Medications: dextrose, 200 mL/hr dextrose, 200 mL/hr dextrose 5 % and sodium chloride 0.45 %, 250 mL/hr sodium chloride, 75 mL/hr, Last Rate: 75 mL/hr (11/02/242028) Home medications: Current Outpatient Medications Medication Instructions albuterol 108 (90 Base) MCG/ACT inhaler 2 puffs, Inhalation, Every 6 hours PRN atorvastatin (Lipitor) 40 MG tablet Daily BD Insulin Syringe U/F 30G X 1/2 0.5 ML misc 2 times daily with insulin brimonidine (AlphaGAN P) 0.1 % ophthalmic solution 1 drop, Both Eyes, 3 times daily carvedilol (COREG) 12.5 mg, Oral, 2 times daily with meals cholecalciferol (VITAMIN D-3) 2,000 Units, Oral, Daily citalopram (CeleXA) 20 MG tablet Oral, Every 24 hours Continuous Glucose Sensor (FreeStyle Satya 3 Sensor) misc 1 Device, Does not apply, Every 14 days cyanocobalamin (VITAMIN B-12) 1,000 mcg, Oral, Weekly EPINEPHRINE HCL, ANAPHYLAXIS, IM IntraMUSCular fluconazole (Diflucan) 200 MG tablet 1 tablet, Oral, Daily, PRN yeast infections FREESTYLE LITE test strip 1 each, Other, 4 times daily, As directed glucose 16 g, Oral, As needed hydrocortisone (West-Dmitri) 0.2 % cream Topical, Every 12 hours insulin lispro (HUMALOG) 16 Units, SubCUTAneous, Daily With Dinner insulin pen needle 32G x 4 mm misc Use as instructed 2 times daily Lantus SoloStar 16 Units, SubCUTAneous, Nightly levothyroxine (SYNTHROID, LEVOXYL) 175 mcg, Oral, Daily before breakfast loperamide (IMODIUM) 2 mg, Oral, PRN mirabegron ER (Myrbetriq) 50 MG 24 hr tablet Every 24 hours, PRN multivitamin, Pediatric, (Flintstones Gummies) chewable tablet 2 tablets, Oral, With iron olmesartan (BENICAR) 40 mg, Oral, Daily PROTEIN PO Oral sulfamethoxazole-trimethoprim (Bactrim DS) 800-160 MG tablet 1 tablet, Oral, Every 12 hours timolol (Timoptic) 0.5 % ophthalmic solution 1 drop, Both Eyes, 2 times daily Physical Examination: Vitals: 11/03/24 0521 11/03/24 0600 11/03/24 0608 11/03/24 0802 BP: (!) 179/98 151/90 141/93 BP Location: Left arm Patient Position: Lying Pulse: 101 90 81 Resp: 16 16 Temp: 36.5 C (97.7 F) 36.7 C (98 F) TempSrc: Temporal Temporal SpO2: 97% 92% 95% Weight: 214 lb 15.2 oz (97.5 kg) Height: Intake/Output Summary (Last 24 hours) at 11/03/2024 1002 Last data filed at 11/03/2024 0600 Gross per 24 hour Intake 1126.25 ml Output -- Net 1126.25 ml Wt Readings from Last 3 Encounters: 11/03/24 214 lb 15.2 oz (97.5 kg) 03/26/24 255 lb 4.8 oz (116 kg) 03/14/24 255 lb (116 kg) Physical Exam Vitals and nursing note reviewed. Constitutional: General: She is not in acute distress. Appearance: Normal appearance. She is not ill-appearing, toxic-appearing or diaphoretic. HENT: Head: Normocephalic and atraumatic. Nose: Nose normal. Neck: Vascular: No JVD. Cardiovascular: Rate and Rhythm: Tachycardia present. Rhythm irregular. Pulses: Carotid pulses are 2+ on the right side and 2+ on the left side. Radial pulses are 2+ on the right side and 2+ on the left side. Popliteal pulses are 2+ on the right side and 2+ on the left side. Dorsalis pedis pulses are 2+ on the right side and 2+ on the left side. Heart sounds: Murmur (best heard at right 2nd ICS) heard. Systolic murmur is present with a grade of 2/6. No friction rub. No gallop. Pulmonary: Effort: Pulmonary effort is normal. No respiratory distress. Breath sounds: Normal breath sounds. No wheezing, rhonchi or rales. Chest: Chest wall: No tenderness. Abdominal: General: Bowel sounds are normal. There is no distension. Palpations: Abdomen is soft. There is no mass. Tenderness: There is no abdominal tenderness. Musculoskeletal: General: No swelling or deformity. Cervical back: Normal range of motion and neck supple. Right lower leg: Edema present. Left lower leg: Edema present. Comments: Lymphedema to BLLE noted. Thighs are more swollen. Area of indentation noted below the knee. Pt states she was wearing compression stockings for a while. Skin: General: Skin is warm and dry. Capillary Refill: Capillary refill takes less than 2 seconds. Findings: No rash. Neurological: General: No focal deficit present. Mental Status: She is alert and oriented to person, place, and time. Mental status is at baseline. Motor: No weakness. Gait: Gait normal. Psychiatric: Mood and Affect: Mood normal. Behavior: Behavior normal. Thought Content: Thought content normal. Judgment: Judgment normal. Laboratory Tests: TROPONIN I, CONVENTIONAL SENSITIVITY No results found for: CKTOTAL, CKMB, CKMBINDEX, TROPONINI TROPONIN I, HIGH SENSITIVITY Troponin HS Serial Baseline Date Value Ref Range Status 11/01/2024 122 (H) <=14 ng/L Final Comment: In individuals presenting with symptoms > 2h, a baseline troponin <= 5 ng/L suggests acute cardiac injury is unlikely and further serial testing is generally not indicated. 2h Troponin HS (Serial 2nd Troponin) Date Value Ref Range Status 11/01/2024 127 (H) <=14 ng/L Final Comment: Rising or falling troponin delta between 2 - 15 ng/L as compared to baseline value requires a 3rd serial troponin No results found for: TROPDELTBASE 4h Troponin HS (Serial 3rd Troponin) Date Value Ref Range Status 11/01/2024 128 (H) <=14 ng/L Final Comment: Rising or falling troponin delta below 2 ng/L as compared to 2h troponin value suggests that acute cardiac injury is unlikely. No results found for: TROPDELTSEC Recent Labs 11/01/24 1809 11/01/248 11/02/24 0045 11/02/24 0406 11/03/24 0556 NA 128* 134* 133* 133* 137 K 4.8 3.7 4.1 4.5 3.6 CL 95* 102 100 102 105 CO2 11* 17* 20* 19* 19* BUN 30* 31* 31* 31* 31* CREATININE 1.62* 1.43* 1.38* 1.26* 1.03 Recent Labs 11/01/24 1809 11/02/24 0406 11/03/24 0556 WBC 10.1 9.5 8.8 HGB 14.2 13.6 12.5 12.8 HCT 39.5 36.2 37.8 MCV 84.2 83.6 85.3 PLT 191 169 200 Recent Labs 11/01/24 180 BNP 6,801* No results for input(s): TRIG, HDL, LDLCALC, CHOL in the last 72 hours. Lab Results Component Value Date LDLCHOLESTER 72 10/06/2022 Lab Results Component Value Date TSH 3.03 11/02/2024 EF BP Date Value Ref Range Status 03/14/2024 68 55 - 100 % Final 03/14/24 TRANSTHORACIC ECHOCARDIOGRAM (TTE) COMPLETE (CONTRAST/BUBBLE/3D PRN) 03/14/2024 4:26 PM (Final) Interpretation Summary Left Ventricle: Left ventricle is smaller than normal. Moderately increased wall thickness. Normal left ventricular systolic function. EF by 2D Simpsons Biplane is 68%. Global longitudinal strain is -17.1%. Normal wall motion. Right Ventricle: Right ventricle size is normal. Normal systolic function. Aortic Valve: Not well visualized. Trileaflet. Moderately thickened cusps. Moderately calcified cusps. Moderate stenosis of the aortic valve. AV mean gradient is 25 mmHg. AV peak gradient is 56 mmHg. LVOT:AV VTI Index is 0.33. AV area by continuity VTI is 1.0 cm2. Aorta: Normal sized sinuses of Valsalva. Mildly dilated ascending aorta. Ao ascending diameter is 3.7 cm. Signed by: Jose Martin Garcia MD on 03/14/2024 4:26 PM Cardiac Tests: Last EC11/02/24 Atrial fibrillation Left anterior fascicular block LVH with secondary repolarization abnormality Anterior Q waves, possibly due to LVH Last echocardiogram: 03/14/24 TRANSTHORACIC ECHOCARDIOGRAM (TTE) COMPLETE (CONTRAST/BUBBLE/3D PRN) 03/14/2024 4:26 PM (Final) Interpretation Summary Left Ventricle: Left ventricle is smaller than normal. Moderately increased wall thickness. Normal left ventricular systolic function. EF by 2D Simpsons Biplane is 68%. Global longitudinal strain is -17.1%. Normal wall motion. Right Ventricle: Right ventricle size is normal. Normal systolic function. Aortic Valve: Not well visualized. Trileaflet. Moderately thickened cusps. Moderately calcified cusps. Moderate stenosis of the aortic valve. AV mean gradient is 25 mmHg. AV peak gradient is 56 mmHg. LVOT:AV VTI Index is 0.33. AV area by continuity VTI is 1.0 cm2. Aorta: Normal sized sinuses of Valsalva. Mildly dilated ascending aorta. Ao ascending diameter is 3.7 cm. Signed by: Jose Martin Garcia MD on 03/14/2024 4:26 PM Telemetry findings reviewed: AFib, HR 100-110s with multiple RVR events 130-150s AMAURY Polk CNP Date Of Service 11/03/2024 Images from the original note were not included. OCCUPATIONAL THERAPY [facility] Initial Evaluation Name/MRN: Dameon Potter ([id number]) Evaluation Date: 11/03/2024 Date of : 1955 Admission Date: 11/01/2024 4:42 PM Age: 69 y.o. Room[facility]Bed: [facility] A Discharge Recommendation: Half-Way Facility Other: continue to assess Assessment IMPRESSION: Patient is a 69-year-old female hospitalized s/p confusion, lightheadedness, and hyperglycemia with new onset a-fib. Patient is functionally independent with self-care tasks and functional mobility at baseline. Patient is limited by the deficits listed below. Patient is Contact Guard for UB ADLs, Min Assist, Max Assist LB ADLs and Min Assist toileting. Patient is Contact Guard bed mobility and Min Assist for transfers/functional mobility. Recommending SNF upon discharge. Admitting Diagnosis: hyperglycemia Performance Deficits /Impairments: Increased Pain, Decreased Functional Mobility, Decreased ADL status, Decreased Strength, Decreased Safety Awareness, Decreased Endurance, and Decreased Balance Prognosis: Fair Decision Making: Medium Complexity Subjective Patient is supine in bed; patient agreeable to therapy evaluation. Pain: Pt denies any current pain. Past Medical History: Past Medical History: Diagnosis Date Anxiety Asthma Deficiency of nutrient elements Depression Dry eye Fatigue Gastritis GERD (gastroesophageal reflux disease) Glaucoma Glaucoma Hyperlipidemia Hypertension Hypothyroid Hypothyroidism Incontinence Intestinal malabsorption Lymph edema Morbid obesity (HCC) Obstructive sleep apnea PMB (postmenopausal bleeding) Polycystic ovarian syndrome Psoriasis SOB (shortness of breath) on exertion Thyroglossal duct cyst Type 2 diabetes mellitus without complication (HCC) Urinary tract infection Uterine cancer (CMS/HCC) (HCC) Vitamin D deficiency 05/10/2017 Zinc deficiency 06/21/2018 Past Surgical History: Past Surgical History: Procedure Laterality Date CATARACT EXTRACTION Bilateral CHOLECYSTECTOMY 01/29/2018 w/ LRYGB and Umbilical Hernia repair - [facility] DILATION AND CURETTAGE OF UTERUS 09/03/2020 with hysteroscopy GASTRIC BYPASS 01/29/2018 LRYGB w/ Lap Aggie and Umbilical Hernia repair, [facility]ografakis GASTRIC BYPASS HYSTERECTOMY 09/30/2020 [facility]/BSO; Dr. Cuauhtemoc Stubbs MOUTH SURGERY gum removal to expose wisdom teeth THYROGLOSSAL DUCT EXCISION 2000 [facility]- Dr. Vin Keating THYROIDECTOMY UMBILICAL HERNIA REPAIR 01/29/2018 w/ LRYGB and Lap Aggie - Zografakis UPPER GASTROINTESTINAL ENDOSCOPY 03/20/2017 pre op, [facility]ografakis WISDOM TOOTH EXTRACTION [facility] Admission Diagnosis: Patient Active Problem List Diagnosis Date Noted Hyperglycemia 11/02/2024 Hypertension 11/01/2023 Lymphedema of both lower extremities 11/01/2023 MDD (major depressive disorder) 11/01/2023 Urinary incontinence 11/01/2023 Asthma 11/01/2023 Vaginal candidiasis 11/01/2023 Chronic rhinitis 11/01/2023 DM retinopathy (HCC) 11/01/2023 Diastolic heart failure (HCC) 11/01/2023 HLD (hyperlipidemia) 11/01/2023 RADHA (obstructive sleep apnea) 11/01/2023 Polycystic ovarian syndrome 11/01/2023 Open-angle glaucoma 11/01/2023 Non-pressure chronic ulcer left lower leg, 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) 04/09/2023 Corneal epithelial basement membrane dystrophy 10/03/2022 Asthma without status asthmaticus 07/05/2022 Candidal vulvovaginitis 07/05/2022 Cardiomegaly 07/05/2022 Diabetic retinopathy associated with type 2 diabetes mellitus (HCC) 07/05/2022 Diastolic dysfunction 07/05/2022 Malignant neoplasm of uterus (HCC) 07/05/2022 Malnutrition of mild degree (Bianchi: 75% to less than 90% of standard weight) (HCC) 07/05/2022 Moderate recurrent major depression (HCC) 07/05/2022 Polycystic ovaries 07/05/2022 Thyroglossal duct cyst 07/05/2022 Type 2 diabetes mellitus with hyperglycemia (HCC) 07/05/2022 Postmenopausal bleeding 09/03/2020 Dry eye syndrome of bilateral lacrimal glands 11/04/2018 Nuclear sclerotic cataract, bilateral 05/24/2017 Posterior subcapsular age-related cataract of left eye 05/22/2017 Primary open angle glaucoma of both eyes, mild stage 11/13/2016 Cortical cataract of both eyes 05/05/2015 Refractive error 05/05/2015 Uncontrolled type 2 diabetes mellitus 05/05/2015 Chronic sinusitis 03/12/2013 Obesity with body mass index greater than 30 10/01/2020 Endometrial cancer (CMS/HCC) (HCC) 09/30/2020 Zinc deficiency 06/21/2018 Fatigue 06/20/2018 Deficiency of nutrient elements 02/06/2018 Intestinal malabsorption 02/06/2018 Uncontrolled type 2 diabetes mellitus with hyperglycemia, with long-term current use of insulin (HCC) 01/31/2018 Morbid obesity (HCC) 01/31/2018 Hepatic steatosis 01/29/2018 Calculus of gallbladder with chronic cholecystitis without obstruction 01/29/2018 Essential hypertension, benign 01/29/2018 Mixed hyperlipidemia 01/29/2018 Lymphedema 12/27/2017 Vitamin D deficiency 12/27/2017 PND (post-nasal drip) 04/12/2017 Gastritis without bleeding 03/20/2017 Gastroesophageal reflux disease without esophagitis 03/20/2017 Obstructive sleep apnea 12/26/2016 SOB (shortness of breath) on exertion 12/26/2016 Hypothyroidism 04/22/2015 OAB (overactive bladder) 03/24/2015 Medical Precautions: No active isolations Proper PPE donned/doffed in accordance with facility standards. Fall Risk: Mcleod Fall Risk Score: 85 (High Risk) Precautions/Restrictions: Lines/Drains/Airways: PIV Fall Precautions Family/Caregiver Present: none Overall Cognitive Status: WNL Overall Orientation Status: Oriented x4 Social/Functional History Patient admitted from home. Lives With: Alone Type of Home: single family home Home Layout: Split Level Home- 4 steps down to bathroom; patient sleeps in recliner in living with a BSC Home Access: Stairs to Enter with Rails (# of stairs: 1) Bathroom Shower/Tub: Shower Chair with Back and Walk in Shower- does not really shower due to lymphedema and needing legs wrapped. Patient uses wet wipes to clean up. Toilet: Bedside Commode Home Equipment: front wheeled walker and quad cane Homemaking Responsibilities: Needs Assist Receives Help From: Friend(s) Active Degreasing Solution Reclaimer: No Prior Level of Function Prior Level of ADL Function: Independent Prior Level of Mobility: Independent; Device: Quad cane Prior Level of Transfers: Independent Objective ADLs LE Dressing: Min Assist, Max Assist- Patient is max A for donning socks. Patient CGA for threading BLE into brief and min A for donning over hips. Upper Extremity Assessment AROM: WFL PROM: Not assessed this session Strength: Exceptions: BUE strength: 3/5 Bed Mobility Supine to sit: Contact Guard Scooting: Contact Guard HOB elevated; use of bed rail. Patient with FAIR sitting balance. Patient requiring increased time for task completion. Transfers/Mobility Sit to stand: Min Assist Stand to sit: Min Assist Standing balance: Min Assist Functional mobility: Min Assist Patient min A to stand from EOB. Patient educated to push up from EOB and not pull from walker but patient continues to pull up from walker. Patient CGA/min A for steps over to recliner; patient states that she feels weak. Patient min A for standing from recliner. Patient requiring min A for maintaining standing balance during LOB dressing. Device(s) used: Front wheeled walker Heart Failure on Admission Dyspnea: No Heart failure diagnosis: Yes AM-PAC AM-PAC Inpatient Daily Activity Raw Score: 17 ADL Inpatient [facility] G-Code Modifier: CK Plan Pt would benefit from skilled acute OT services to address Strengthening, ROM, Gait Training, Balance Training, Self-Care/ADL Training, Functional Mobility Training, Endurance Training, Safety Education and Training, Pain Management, Neuromuscular Re-Education Training, and Patient/Caregiver Training. Frequency: 3x/week for 4 weeks Barriers: Pain, Impaired balance, Lower extremity weakness, Decreased endurance, and Limited safety awareness Safety/Education Safety Safety Devices in place: All fall risk precautions in place, call light within reach, left in chair, chair alarm in place, gait belt, nurse notified, and video monitor Restraints: No Education Education Given To: patient Education Provided: OT Role, Plan of Care, Precautions, and Discharge Recommendations Education Method: Verbal Barriers to Learning: None Education Outcome: Continued Education Needed Goals Patient Stated Goal: to get better Encounter Problems Encounter Problems (Active) Balance Patient will maintain dynamic standing balance for 3-5 minutes with modified independence in order to demonstrate decreased risk of falling. Start: 11/03/24 Expected End: 12/01/24 Bathing Patient will utilize adaptive techniques to bathe body NM. Start: 11/03/24 Expected End: 12/01/24 Dressing Upper Extremities Patient will complete upper body dressing NM. Start: 11/03/24 Expected End: 12/01/24 Dressings Lower Extremities Patient will dress lower body NM. Start: 11/03/24 Expected End: 12/01/24 Toileting Patient will complete toileting tasks at standard toilet with modified independence. Start: 11/03/24 Expected End: 12/01/24 Therapy Time Individual Co-Treatment Co-Evaluation Time In 0946 Time Out 1012 Minutes 26 Timed Code Treatment Minutes: 10 Minutes (self care- 1) Laura Combs OT Patient's Occupational Therapy Plan of Care supervision is transferred to a [facility] Services Occupational Therapist. Goals and/or treatment plan was established in collaboration with patient/family/other representatives. Images from the original note were not included. OCCUPATIONAL THERAPY [facility] Name/MRN: Dameon Potter ([id number]) Date: 11/03/2024 OT eval and treat order received. Patient chart reviewed. Patient currently starting bedside ECHO. Will continue to follow. Laura Combs OT Images from the original note were not included. [facility] Geriatric Medicine Inpatient Consult Service Admission Date: 11/01/2024 Consult Date: 11/02/24 Consult reason: failure to thrive, confusion Geriatric consult acknowledged. Please contact covering physician via Secure Chat with urgent questions or concerns. Consult will be completed on next business day. Jarrett Gresham MD 11/02/2024 5:23 PM Hospitalist Progress Note 11/02/2024 Subjective: Admit Date: 11/01/2024 PCP: Christy Rizzo MD Room#: Interval History: Patient is 69-year-old with history of diabetes mellitus, hypertension, dyslipidemia, hypothyroidism comes in the hospital not feeling well for the past few days. Patient was seen in the ER and noted to have hyperglycemia with blood sugar greater than 600. Initially placed on insulin drip. Also noted to have new onset A-fib and admitted to hospital for further evaluation. UA was abnormal. Consultation placed to cardiology. 11/02: Patient alert, chart reviewed, denies any headache or dizziness today. Afebrile patient by cardiology and plan is for echocardiogram. Started on Eliquis. Blood sugars remain elevated. Objective: Vitals: BP 129/84 Pulse 95 Temp 36.1 C (97 F) (Temporal) Resp 14 Ht 5' 6 (1.676 m) Wt 236 lb (107 kg) SpO2 100% BMI 38.09 kg/m Pulse Ox: SpO2 Av.6 % Min: 96 % Max: 100 % Supplemental O2: Pertinent physical exam: Physical Exam Cardiovascular: Rate and Rhythm: Tachycardia present. Rhythm irregular. Pulmonary: Effort: Pulmonary effort is normal. Breath sounds: Normal breath sounds. Abdominal: Palpations: Abdomen is soft. Neurological: General: No focal deficit present. Mental Status: She is oriented to person, place, and time. Assessment Acute, acute on chronic, unstable/uncontrolled chronic problems: New onset A-fib with intermittent RVR Diabetes mellitus with hyperglycemia SAÚL Questionable UTI Stable chronic problems affecting care, new non-acute diagnoses: Lymphedema Hypothyroidism Hypertension Hyperlipidemia Depression MDM/Plan Continue metoprolol, Eliquis, echocardiogram ordered, follow-up with cardiology Will increase dose of Lantus to 25 units nightly and also add Humalog before meals, monitor blood sugars closely Renal function slowly improving, monitor Continue empiric antibiotics for now, follow cultures. Check labs in a.m. - DVT prophylaxis: encourage ambulation and already anticoagulated Total time spent (which include face to face and non face to face encounters) : minutes Toxic drug monitoring/narrow therapeutic index drug monitoring : # Drug name : # Route administered : # Method of monitoring : Advance Directive: Full Code Anticipated Discharge - Date - hopefully by 11/04 - Pending the following -clinical progress - Location - Home Adult diet Regular; 3 carb choices (45 gm/meal) 24HR INTAKE/OUTPUT: Intake/Output Summary (Last 24 hours) at 11/02/2024 1209 Last data filed at 11/01/2024 2117 Gross per 24 hour Intake 50 ml Output -- Net 50 ml LABS: CBC: Recent Labs 11/01/24 1809 11/02/24 0406 WBC 10.1 9.5 RBC 4.69 4.33 HGB 14.2 13.6 12.5 HCT 39.5 36.2 MCV 84.2 83.6 RDW 13.4 13.4 PLT 191 169 BMP: Recent Labs 11/01/24 2208 11/02/24 0045 11/02/24 0406 NA 134* 133* 133* K 3.7 4.1 4.5 CL 102 100 102 CO2 17* 20* 19* BUN 31* 31* 31* CREATININE 1.43* 1.38* 1.26* GLUCOSE 276* 255* 278* CALCIUM 8.9 8.9 8.9 ANIONGAP 15* 13 12 LIVER PROFILE: Recent Labs 11/01/24 180 AST 20 ALT 9 BILITOT 1.3* ALKPHOS 99 PROT 7.3 PT/INR: No results for input(s): PROTIME, INR in the last 72 hours. CARDIAC ENZYMES: No results for input(s): TROPONINI in the last 72 hours. Procalcitonin: No results found for: PROCAL Medications: Scheduled apixaban, 5 mg, Oral, BID atorvastatin, 40 mg, Oral, Daily brimonidine, 1 drop, Both Eyes, TID cefTRIAXone, 1,000 mg, IntraVENous, q24h insulin glargine, 24 Units, SubCUTAneous, Nightly insulin lispro, 0-18 Units, SubCUTAneous, TID WC And insulin lispro, 0-18 Units, SubCUTAneous, Nightly insulin lispro, 8 Units, SubCUTAneous, TID WC levothyroxine, 175 mcg, Oral, qAM AC metoprolol tartrate, 25 mg, Oral, BID timolol, 1 drop, Both Eyes, BID triamcinolone, , Topical, Once PRN PRN medications: albuterol, dextrose, dextrose, dextrose 5 % and sodium chloride 0.45 %, dextrose, dextrose, dextrose, glucagon (rDNA), glucose, nitroglycerin, polyethylene glycol (PEG) 3350 Extended Emergency Contact Information Primary Emergency Contact: Roe Melendrez Mobile Relation: Niece Secondary Emergency Contact: Jose Potter Mobile Relation: [place]ib[place] Guzmán MD Division of Hospitalist Medicine [facility] documented in this encounter [facility] 11-05-2024 Note Formatting of this n ote might be different from the original. Patient Choice Patient Name: DAMEON POTTER Date of : 1955 All Providers Sent Referral Name: [facility] Phone: [phone] Address: [address] [place] [address] Name: [facility] Phone: [phone] Address: [address] [place] [address] Name: [facility] Phone: [phone] Address: [address] [place] [address] Name: [facility] Phone: [phone] Address: [address] [place] [address] [facility] 11-05-2024 Note Formatting of this n ote might be different from the original. Patient Choice Patient Name: DAMEON POTTER Date of : 1955 All Providers Sent Referral Name: [facility] Phone: [phone] Address: [address] [place] [address] Name: [facility] Phone: [phone] Address: [address] [place] [address] Name: [facility] Phone: [phone] Address: [address] [place] [address] Name: [facility] Phone: [phone] Address: [address] [place] [address] [facility] 11-05-2024 Note Formatting of this n ote might be different from the original. Social work follow up on SDOH: housing and transport. Social work met with the patient on this day. Patient denies any issues with housing- her house is paid off. Patient does confirm issues with transport for appts- she reports she doesn't feel safe now to drive. Social work review of metro scat with the patient- she is interested in registering. Patient does not have an insurance that pays for transport for appts. Social work also reviewed direction home and making PASSPORT or aging in place referral if patient does not qualify for medicaid. Patient interested in referral. Social work inquired if I could follow up with her niece to give her this information so she can assist the patient in both programs. Patient states yes. Social work placed call to Nieves- niece. Reviewed metro scat- she took phone number and will assist the patient in registering. Social work review of direction home referral- Nieves feels patient would benefit from this program- referral made and Nieves made the interpersonal communications professor. [employer] updated on referral being made. Patient is set to discharge to [employer]. Transport arranged in roundtrip via COT for 3 pm pickers material handlers with Jose Maria Lainez. Social work did update patient on transport time and possible copay/expense for transport. Social work updated patients niece Nieves via phone on discharge/transport time. Social work also updated [facility], patients bedside RN and unit. [facility] 11-05-2024 Note Formatting of this n ote might be different from the original. Social work follow up on SDOH: housing and transport. Social work met with the patient on this day. Patient denies any issues with housing- her house is paid off. Patient does confirm issues with transport for appts- she reports she doesn't feel safe now to drive. Social work review of metro scat with the patient- she is interested in registering. Patient does not have an insurance that pays for transport for appts. Social work also reviewed direction home and making PASSPORT or aging in place referral if patient does not qualify for medicaid. Patient interested in referral. Social work inquired if I could follow up with her niece to give her this information so she can assist the patient in both programs. Patient states yes. Social work placed call to Nieves- niece. Reviewed metro scat- she took phone number and will assist the patient in registering. Social work review of direction home referral- Nieves feels patient would benefit from this program- referral made and Nieves made the interpersonal communications professor. [employer] updated on referral being made. Patient is set to discharge to [facility]. Transport arranged in roundtrip via COT for 3 pm pickers material handlers with Jose Maria Lainez. Social work did update patient on transport time and possible copay/expense for transport. Social work updated patients niece Nieves via phone on discharge/transport time. Social work also updated [facility], patients bedside RN and unit. [facility] 11-05-2024 Note Formatting of this n ote might be different from the original. Discharge med [facility] 7000 completed in [facility] per TCC request. Facility notified via [employer]. [facility] 11-05-2024 Note Formatting of this n ote might be different from the original. Discharge med list [facility]. 7000 completed in [facility] per TCC request. Facility notified via [employer]. T [facility] 11-05-2024 Note Formatting of this n ote might be different from the original. [facility] tasked to send discharge order, MAR and 7000 to [employer]. [facility] 11-05-2024 Note Formatting of this n ote might be different from the original. [facility] tasked to send discharge order, MAR and 7000 to [employer]. [facility] 11-05-2024 Hospital Discharge instructions Rayne Kerr RN - 11/05/2024 10:45 AM EDT Images from the original note were not included. Continuity of Care Form Patient Name: Dameon Potter : 1955 Admit date: 11/01/2024 Discharge date: 11/05/2024 Code Status Order: Full Code Advance Directives: N Admitting Physician: Wilner Kingston MD PCP: Christy Rizzo MD Discharging Nurse: Rayne LAURA Discharging Hospital Unit/Room#: W4-423/[id number] A Discharging Unit Emergency Contact: Extended Emergency Contact Information Primary Emergency Contact: Roe Melendrez Mobile Relation: Niece Secondary Emergency Contact: RossJose pat [place] Mobile Relation: Sibling Past Surgical History: Past Surgical History: Procedure Laterality Date CATARACT EXTRACTION Bilateral CHOLECYSTECTOMY 01/29/2018 w/ LRYGB and Umbilical Hernia repair - [facility] DILATION AND CURETTAGE OF UTERUS 09/03/2020 with hysteroscopy GASTRIC BYPASS 01/29/2018 LRYGB w/ Lap Aggie and Umbilical Hernia repair, [facility] GASTRIC BYPASS HYSTERECTOMY 09/30/2020 [facility]/BSO; Dr. Cuauhtemoc Stubbs MOUTH SURGERY 1979' gum removal to expose wisdom teeth [facility] Ke[facility] THYROIDECTOMY UMBILICAL HERNIA REPAIR 01/29/2018 w/ LRYGB and Lap Aggie - Deepali UPPER GASTROINTESTINAL ENDOSCOPY 03/20/2017 pre op, Deepali WISDOM TOOTH EXTRACTION 2012 [facility] Immunization History: Immunization History Administered Date(s) Administered Covid-19, Pfizer Bivalent Booster, (Age 12y+), Im, 30 Mcg/0e 04/17/2022 Covid-19, Pfizer Mo Top, Do Not Dilute, (Age 12 Y+), Im, L 11/15/2021 Influenza, High-dose Seasonal, Quadrivalent, Preservative Free 04/17/2022 Influenza, injectable, quadrivalent 04/22/2020, 04/22/2021 Influenza, seasonal, injectable 05/06/1998, 05/12/1999, 07/02/2001, 05/06/2007, 05/02/2011, 04/02/2012, 05/03/2013, 05/01/2014, 03/30/2015, 04/28/2016, 04/12/2017, 04/05/2018, 04/16/2019, 04/27/2020 Influenza, seasonal, injectable, preservative free 05/26/2009, 06/07/2010 Novel [id number], preservative-free 06/10/2009 Pfizer SARS-CoV-2 Vaccination 10/19/2020, 11/11/2020, 05/16/2021 Pneumococcal Conjugate PCV 13 01/05/2020 Pneumococcal Polysaccharide PPSV23 06/07/2010, 09/13/2021 Zoster, live 05/03/2015 Active Problems: Medical Problems Problem List * (Principal) Hyperglycemia Asthma without status asthmaticus Candidal vulvovaginitis Cardiomegaly Cortical cataract of both eyes Diabetic retinopathy associated with type 2 diabetes mellitus (HCC) Diastolic dysfunction Dry eye syndrome of bilateral lacrimal glands Malignant neoplasm of uterus (HCC) Malnutrition of mild degree (Bianchi: 75% to less than 90% of standard weight) (HCC) Moderate recurrent major depression (HCC) Nuclear sclerotic cataract, bilateral Polycystic ovaries Posterior subcapsular age-related cataract of left eye Postmenopausal bleeding Primary open angle glaucoma of both eyes, mild stage Refractive error Chronic sinusitis Overview Signed 07/05/2022 7:23 AM by Carly Yates MA This term is a replacement for an inactive term Thyroglossal duct cyst Type 2 diabetes mellitus with hyperglycemia (HCC) Corneal epithelial basement membrane dystrophy Uncontrolled type 2 diabetes mellitus Non-pressure chronic ulcer left lower leg, 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) Hypertension Lymphedema of both lower extremities MDD (major depressive disorder) Urinary incontinence Asthma Vaginal candidiasis Chronic rhinitis DM retinopathy (HCC) Diastolic heart failure (HCC) HLD (hyperlipidemia) RADHA (obstructive sleep apnea) Polycystic ovarian syndrome Open-angle glaucoma Severe malnutrition (CMS/HCC) (HCC) (Chronic) Endometrial cancer (CMS/HCC) (HCC) Obesity with body mass index greater than 30 OAB (overactive bladder) Overview Signed 05/04/2022 11:13 PM by Interface, Incoming Problems- [employer] Conversion Plan repeat injection mid-april with 150 units of Botox. Uncontrolled type 2 diabetes mellitus with hyperglycemia, with long-term current use of insulin (HCC) Deficiency of nutrient elements Zinc deficiency Lymphedema Overview Signed 05/04/2022 11:13 PM by Interface, Incoming Problems- [facility] Conversion [facility] Hepatic steatosis Calculus of gallbladder with chronic cholecystitis without obstruction Vitamin D deficiency Intestinal malabsorption Morbid obesity (HCC) Hypothyroidism Essential hypertension, benign Mixed hyperlipidemia Fatigue Obstructive sleep apnea SOB (shortness of breath) on exertion Gastritis without bleeding PND (post-nasal drip) Gastroesophageal reflux disease without esophagitis Isolation/Infection: No active isolations No active infections Nurse Assessment: Last Vital Signs: BP 121/89 Pulse 82 Temp 36.9 C (98.5 F) (Temporal) Resp 14 Ht 5' 6 (1.676 m) Wt 218 lb (98.9 kg) SpO2 99% BMI 35.19 kg/m Last documented pain score (0-10 scale): Last Weight: Wt Readings from Last 1 Encounters: 11/05/24 218 lb (98.9 kg) Mental Status: CHARLEY Patient Mental Status: oriented and alert IV Access: CHARELY IV Access: None Nursing Mobility/ADLs: Walking Minimal assistance Transfer Minimal assistance Bathing Minimal assistance Dressing Minimal assistance Toileting Minimal assistance Feeding Minimal assistance Clinical Cytogeneticist Total assistance Med Delivery no Wound Care Documentation and Therapy: Wound/Incision 11/02/24 Calf Anterior;Right (Active) Number of days: 2 Wound/Incision 11/02/24 Pressure Injury Buttock Left;Upper (Active) Site Assessment Red;Yellow;Maceration 11/04/24 0440 Susan-Wound Assessment Blanchable erythema 11/04/24 0440 Odor None 11/05/24 0249 Treatments Site care 11/04/24 0440 Primary Dressing Open to air 11/05/24 0249 Number of days: 2 Wound/Incision 11/02/24 Pressure Injury Buttock Right;Upper (Active) Site Assessment Red;Yellow;Maceration 11/04/24 0440 Susan-Wound Assessment Blanchable erythema 11/04/24 0440 Odor None 11/05/24 0249 Treatments Site care 11/04/24 044 Primary Dressing Open to air 11/05/24 0249 Number of days: 2 Wound/Incision 11/02/24 Pressure Injury Buttock Right (Active) Site Assessment Red;Yellow;Maceration 11/04/24 0440 Susan-Wound Assessment Blanchable erythema 11/04/24 0440 Odor None 11/05/24 0249 Treatments Site care 11/04/24 0440 Primary Dressing Open to air 11/05/24 0249 Number of days: 2 Elimination: Continence: Bowel: no Bladder: no Urinary Catheter: None Colostomy/Ileostomy/Ileal Conduit: None Date of Last BM: 11/04/2024 Intake/Output Summary (Last 24 hours) at 11/05/2024 1045 Last data filed at 11/04/2024 2203 Gross per 24 hour Intake -- Output 800 ml Net -800 ml I/O last 3 completed shifts: In: 120 (1.2 mL/kg) [P.O.:120] Out: 1550 (15.7 mL/kg) [Urine:1550 (0.4 mL/kg/hr)] Weight: 98.9 kg Safety Concerns: history of falls (last 30 days) and at risk for falls Impairments/Disabilities: none Nutrition Therapy: Current Nutrition Therapy: Oral diet: carb control 3 carbs/meal (1500kcals/day) and low sodium (3-4gm) Routes of Feeding: oral Liquids: thin liquids Daily Fluid Restriction: no Last Modified Barium Swallow with Video (Video Swallowing Test): not done Treatments at the Time of Hospital Discharge: Respiratory Treatments: n/a Oxygen Therapy: is not on home oxygen therapy. Ventilator: No ventilator support Rehab Therapies: physical therapy, occupational therapy, nursing, and aide Weight Bearing Status/Restrictions: no restriction Other Medical Equipment (for information only, NOT a DME order): bedside commode and wheeled walker Other Treatments: Patient's personal belongings (please select all that are sent with patient): none RN SIGNATURE: MANAGEMENT/SOCIAL WORK SECTION Inpatient Status Date: 11/02/24 Discharging to Facility/ Agency [facility] [address], [place] [address] Domestic Laundry Worker/Domestic Violence Advocate signature: ICIAN SECTION Name: Dameon Potter Prognosis: fair Condition at Discharge: stable Rehab Potential (if transferring to Rehab): fair Recommended Labs or Other Treatments After Discharge: follow up with senior health living at discharge, cbc and bmp in 3 days, follow up with cardiology as scheduled The individual is being admitted to a nursing facility directly from an [facility] or a unit of a [facility] that is not operated by or licensed by [facility] under section 5119.14 or 5160-3-15.1 5 The individual requires the level of services provided by a nursing facility for the condition for which he or she was treated in the hospital and, Physician Certification: I certify the above information and transfer of Dameon Potter is necessary for the continuing treatment of the diagnosis listed and that she requires care home facility for less than 30 days. Update Admission H&P: No change in H&P PHYSICIAN SIGNATURE: The following attachments cannot be sent through Care Everywhere.Carb Counting for Adults With Diabetes (Sen[place]e)Diabetes and Diet ([place]e)documented in this encounter [facility] 11-05-2024 Note Formatting of this n ote might be different from the original. VM discontinued yesterday at 1pm. [facility] updated an asked if they would have a bed. Geriatrics/ cards following. T [facility] 11-05-2024 Note Formatting of this n ote might be different from the original. VM discontinued yesterday at 1pm. [facility] updated an asked if they would have a bed. Geriatrics/ cards following. [facility] 11-05-2024 Plan of care note Problem: Knowledge Deficit Goal: Patient/family/caregiver demonstrates understanding of disease process, treatment plan, medications, and discharge instructions Outcome: Progressing Problem: Potential for Compromised Skin Integrity Goal: Skin Integrity is Maintained or Improved Outcome: Progressing Goal: Nutritional status is improving Outcome: Progressing Problem: Urinary Incontinence Goal: Perineal skin integrity is maintained or improved Outcome: Progressing Problem: Potential for Falls Goal: I will remain free of falls Outcome: Progressing Problem: Discharge Barriers Goal: My discharge needs are met Outcome: Progressing Problem: Problem Interventions Goal: Assess Nutritional Intake Outcome: Progressing T [facility] 11-04-2024 Nurse Note Visual monitor removed from room. Pt has been free of any events today that would require a monitor [facility] 11-04-2024 Note Formatting of this n ote might be different from the original. [facility] able to accept pt. Ramila cao talked with pt. She will need to be 24hr free of VM. Provider and nurse notified. [facility] 11-04-2024 Note Formatting of this n ote might be different from the original. [facility] able to accept pt. Ramila kiley talked with pt. She will need to be 24hr free of VM. Provider and nurse notified. [facility] 11-04-2024 Note Formatting of this n ote might be different from the original. Referral placed to SNF 1. [facility] 2. [facility] 3. [facility] 4. [facility] per [facility] request. Await review and response regarding ability to accept. [facility] notified. [facility] 11-04-2024 Note Formatting of this n ote might be different from the original. Referral placed to SNF 1. [facility] 2. [facility] 3. [facility] 4. [facility] per [facility] request. Await review and response regarding ability to accept. [facility]CC notified. [facility] 11-04-2024 Note Formatting of this n ote might be different from the original. IV rocephin continued for UTI. BC pending. VM in room. Stefanie/ cards following. Spoke with pt and asked if she was able to look over the list of facilities. Pt states she does not know where the list went. Pt states she does not care what facility. I told her I would send referrals to the places closest in this area and let her know who would be able to accept. Pt agreeable. INTERNET PROJECT MANAGER tasked to send referrals to [facility], [facility] and [facility]. [facility] 11-04-2024 Note Formatting of this n ote might be different from the original. IV rocephin continued for UTI. BC pending. VM in room. Stefanie/ cards following. Spoke with pt and asked if she was able to look over the list of facilities. Pt states she does not know where the list went. Pt states she does not care what facility. I told her I would send referrals to the places closest in this area and let her know who would be able to accept. Pt agreeable. INTERNET PROJECT MANAGER tasked to send referrals to [facility], [facility], [employer] and [facility]. [facility] 11-03-2024 Note Problem: Potential f or Compromised Skin Integrity Goal: Nutritional status is improving Outcome: Progressing Problem: Urinary Incontinence Goal: Perineal skin integrity is maintained or improved Outcome: Progressing [facility] 11-03-2024 Plan of care note Problem: Potential for Compromised Skin Integrity Goal: Nutritional status is improving Outcome: Progressing Problem: Urinary Incontinence Goal: Perineal skin integrity is maintained or improved Outcome: Progressing [facility] 11-03-2024 Note Formatting of this n ote might be different from the original. Pt adm for tx/ eval of hyperglycemia. Echo/ renal US/ CT head/ XR chest completed. IV rocephin started- UTI. BC pending. On arrival needed to be placed on insulin gtt- has been discontinued. Stefanie/ cards following. Therapy recommending snf. Spoke with mela Pickett, introduced self and roll, discussed discharge plan. She thinks the pt should go to a facility short term prior to going home d/t increased weakness. Spoke with pt, introduced self and roll. Discussed conversation with Nieves and she was agreeable. Gave her a list of facilities and told her I would be back to get choices. [facility] 11-03-2024 Note Formatting of this n ote might be different from the original. Pt adm for tx/ eval of hyperglycemia. Echo/ renal US/ CT head/ XR chest completed. IV rocephin started- UTI. BC pending. On arrival needed to be placed on insulin gtt- has been discontinued. Stefanie/ cards following. Therapy recommending snf. Spoke with niece Nieves, introduced self and roll, discussed discharge plan. She thinks the pt should go to a facility short term prior to going home d/t increased weakness. Spoke with pt, introduced self and roll. Discussed conversation with Nieves and she was agreeable. Gave her a list of facilities and told her I would be back to get choices. T [facility] 11-03-2024 Consult note Associated Order (s): IP CONSULT TO DIETITIAN Nutrition Assessment Type and Reason for Visit: Initial, Consult (Can subscore) Nutrition Recommendations/Plan: 45 gm CHO Control diet ordered which is appropriate to aide in BG control while meeting pt's estimated nutrition needs, per MNT protocol will also add No Added Salt restriction, may be appropriate to further restrict to 2gm Sodium, so far pt has tolerated PO here, already seems to be eating more than she would at home, RD does suspect that part of reason pt not eating enough at home (multifactorial, likely partly because pt wants to avoid use of insulin, experiences diarrhea at times , references being gone from home at appointments and early satiety) may partially be d/t living alone and may not have ability/capability to prepare meals for herself. RD did not offer pt this however per MNT protocol will also trial Ensure Max once daily (^ protein to promote BG control and wound healing/skin integrity). RD to monitor weight, labs, fluid, diet education needs (attached CHO Counting/DM Diet handouts to discharge paperwork) and follow-up weekly. Malnutrition Assessment: Malnutrition Status: Severe malnutrition (malnutrition overall suspected to be multifactorial, would like to confirm pt's CBW, will trial ONS to promote wound healing and monitor acute PO intakes) Context: Chronic Illness (given lack of insulin use since June; ? environmental impact also) Findings of the 6 clinical characteristics of malnutrition: Energy Intake: 75% or less estimated energy requirements for 1 month or longer (based on diet recall, will take prepared foods meal from [employer] and it will last for 3 meals, doesn't really cook, misses meals certain days, also may be avoiding eating to then warrant avoiding insulin?) Weight Loss: Greater than 10% over 6 months (? weights here, 214# vs 208#, if most recent weight is most accurate (214#) and pt weighed 255# in Sept w/ same lymphedema then pt has possibly had loss of 16% in 7 months, likely at least in part d/t inadequate intake and uncontrolled BS) Body Fat Loss: Unable to assess Muscle Mass Loss: Unable to assess Fluid Accumulation: Mild Extremities (hx severe lymphedema) Electrical Tech Strength: Not Performed Nutrition Assessment: Pt with PMH including HTN, HLD, DM, Uterine cancer and Gastric bypass in 2017 presented with feeling 'crummy' for a few days, feeling like she has been weaker than normal and has increased frequency of urination; of note, pt has T2DM and had taken herself off of insulin in June because she felt like she could treat it with diet and exercise. Upon arrival to the ED pt's blood glucose was elevated to 617, pt was breifly placed on an insulin drip with an improvement in blood sugar to 274 on insulin drip, this was then stopped and pt transitioned to subcutaneous insulin; also noted pt's BUN elevated at 30 and 31, Creatinine elevated to 1.62 and 1.43, troponins have been elevated at 122, 127, and 128, proBNP elevated at 6801, urine showing moderate bacteria and 500 leukocyte esterase; Cardiology was consulted for new dx atrial fibrillation, noting a few weeks ago when pt saw her PCP that afib was not noted at that time, ECHO was ordered because of a murmur that was heard, this appt was scheduled for last week however pt missed it, pt denied SOB, orthopnea, CP, noted to have chronic severe bilateral LE lympedema which she does not feel has changed from baseline, EKG s howeed afib with a VR of 139 bpm, prior ECHO in 2023 showed LVEEF 68% and moderate LVH, moderate aortic stenosis noted, pt started on eliquis, metoprolol being continued, repeat ECHO ordered and to be completed this admission, hemoglobin a1c 12.9%; Geriatrics service also consulted, per chart pt's brother noting that he feels pt is not safe to live home alone, noting pt exhibits poor hygiene (not showering often). 45 gm CHO Control diet ordered. RD visited pt's room this morning, VM was in room, breakfast tray was 100% consumed (oatmeal, egg, tang, fruit, milk and coffee), pt states at home she was not really eating well, mostly attributes to schedule and being gone from her home in the morning (at appointments) and not getting home until ~3-4PM, this happens a few times a week, pt does not eat before leaving the house so on those days may only eat once/day, RD asked on average how many meals/day she has been eating recently and she stated twice/day, states she does not cook and mostly lives on prepared meals from [employer] (meals that have meat, veggie, etc and just require to be heated), states she only eats ~1/3 of those meals at a time, for beverages pt used to drink Vitamin Water but states the brand had changed at [employer] to something that she tried to drink but 'it tasted like draino' and she swore to only drink water but feels she is drinking so much that she is 'water logged'; pt confirms not taking insulin since June, referenced time in April when she fell and if she had eaten she would have (d/t not being able to take insulin and laying on the floor for 2 days), states [employer] frequently check on her/call her home?; RD spent time reviewing hospital menu as well as CHO allotment, walked pt through what she could order for lunch ([employer] also came in and obtained future meal orders), pt states 'I'm shocked how much food and what types I can get', RD encouraged pt to eat at least 3 meals/day here and after discharge, noting importance of relationship between CHO intake and insulin administration and discouraged pt skipping meals/eating only once or even twice/day, attached handouts to discharge paperwork as pt states this would be helpful for her, states 'I've been a bad puppy' and laughs, but states she seriously intends to change behaviors and knows she 'messed up'; does confirm getting full quickly s/p gastric bypass, when asked CBW pt estimates ~236# however she is generally a poor historian with weight/time frame, stating weight prior to bypass was '100-something' but then corrects herself, states 'they wanted me to lose 100#' and stated she gained weight?, RD suspects since June w/ uncontrolled DM pt likely lost weight for this reason; lunch meal arrived, call light pressed to obtain blood sugar. Estimated Daily Nutrient Needs: Energy Requirements Based On: Kcal/kg Weight Used for Energy Requirements: Baring Weight for Energy Calculation (kg): 59 kg Total Energy Requirements (kcals/day): 4866-2713 kcal/day (25-30 kcal/kg) Weight Used for Protein Requirements: Baring Weight in Kg Used for Protein Requirements: 59 kg Estimated Total Protein (g/day): 71-77 gm protein/day (1.2-1.3 gm protein/kg) Estimated Daily Total Fluid (ml/day): per MD Nutrition Related Findings: Abd WDL, last BM 11/01; mild BUE, +1 BLE edema; medications reviewed; labs: BG on arrival (617), Hemoglobin a1c (12.9%), BNP ^ Wound Type: Multiple, Pressure Injury, Stage III, Wound Consult Pending (R & L buttock PI, R calf wound, severe lymphedema, she stated to RD that swelling is essentially at baseline, reported having 'wounds' on backside; Can 16) Current Nutrition Therapies: Adult diet Regular; 3 carb choices (45 gm/meal) Current Oral Intake Average Meal Intake: 76-100% Average Supplements Intake: None Ordered Anthropometric Measures: Height: 167.6 cm (5' 6) Current Body Weight: 97.5 kg (214 lb 15.2 oz) (11/03 weight per chart; pt in chair at time of RD visit) Admission Body Weight: (varying weights documented so far, initially 236# stated, then 94# (suspect was meant to be kg), then 208#) Usual Body Weight: (last year weights were 255-269#, in Mar 255# was documented) Baring Body Weight (lbs) (Calculated): 130 lbs Baring Body Weight (Kg) (Calculated): 59 kg % Baring Body Weight (Calculated): 165.3 % BMI (kg/m2) (Calculated): 34.7 Weight Adjustment For: No Adjustment BMI Categories: Obese Class 1 (BMI 30.0-34.9) (using most recent weight) Nutrition Diagnosis: Severe malnutrition, In context of chronic illness related to inadequate protein-energy intake, endocrine dysfuntion (lack of insulin use) as evidenced by lab values, poor intake prior to admission, weight loss greater than or equal to 10% in 6 months Nutrition Interventions: Nutrition Education/Counseling: Education initiated (Needs reinforcement, attached handouts to d/c paperwork) Coordination of Nutrition Care: Continue to monitor while inpatient Plan of Care discussed with: pt Goals: Goals: PO intake 75% or greater, by next RD assessment, other (specify) Specify Other Goals: labs controlled Nutrition Monitoring and Evaluation: Behavioral-Environmental Outcomes: None Identified Food/Nutrient Intake Outcomes: Food and Nutrient Intake, Supplement Intake Physical Signs/Symptoms Outcomes: Biochemical Data, Fluid Status or Edema, Meal Time Behavior, Nutrition Focused Physical Findings, Skin, Weight Discharge Planning: Too soon to determine Wanda Beckman RD Contact: Secure chat or *[phone] [facility] 11-03-2024 Consult note Associated Order (s): IP CONSULT TO DIETITIAN Nutrition Assessment Type and Reason for Visit: Initial, Consult (Can subscore) Nutrition Recommendations/Plan: 45 gm CHO Control diet ordered which is appropriate to aide in BG control while meeting pt's estimated nutrition needs, per MNT protocol will also add No Added Salt restriction, may be appropriate to further restrict to 2gm Sodium, so far pt has tolerated PO here, already seems to be eating more than she would at home, RD does suspect that part of reason pt not eating enough at home (multifactorial, likely partly because pt wants to avoid use of insulin, experiences diarrhea at times <but not always associated w/ eating>, references being gone from home at appointments and early satiety) may partially be d/t living alone and may not have ability/capability to prepare meals for herself. RD did not offer pt this however per MNT protocol will also trial Ensure Max once daily (^ protein to promote BG control and wound healing/skin integrity). RD to monitor weight, labs, fluid, diet education needs (attached CHO Counting/DM Diet handouts to discharge paperwork) and follow-up weekly. Malnutrition Assessment: Malnutrition Status: Severe malnutrition (malnutrition overall suspected to be multifactorial, would like to confirm pt's CBW, will trial ONS to promote wound healing and monitor acute PO intakes) Context: Chronic Illness (given lack of insulin use since June; ? environmental impact also) Findings of the 6 clinical characteristics of malnutrition: Energy Intake: 75% or less estimated energy requirements for 1 month or longer (based on diet recall, will take prepared foods meal from [employer] and it will last for 3 meals, doesn't really cook, misses meals certain days, also may be avoiding eating to then warrant avoiding insulin?) Weight Loss: Greater than 10% over 6 months (? weights here, 214# vs 208#, if most recent weight is most accurate (214#) and pt weighed 255# in Sept w/ same lymphedema then pt has possibly had loss of 16% in 7 months, likely at least in part d/t inadequate intake and uncontrolled BS) Body Fat Loss: Unable to assess Muscle Mass Loss: Unable to assess Fluid Accumulation: Mild Extremities (hx severe lymphedema) Electrical Tech Strength: Not Performed Nutrition Assessment: Pt with PMH including HTN, HLD, DM, Uterine cancer and Gastric bypass in 2018 presented with feeling 'crummy' for a few days, feeling like she has been weaker than normal and has increased frequency of urination; of note, pt has T2DM and had taken herself off of insulin in June because she felt like she could treat it with diet and exercise. Upon arrival to the ED pt's blood glucose was elevated to 617, pt was breifly placed on an insulin drip with an improvement in blood sugar to 274 on insulin drip, this was then stopped and pt transitioned to subcutaneous insulin; also noted pt's BUN elevated at 30 and 31, Creatinine elevated to 1.62 and 1.43, troponins have been elevated at 122, 127, and 128, proBNP elevated at 6801, urine showing moderate bacteria and 500 leukocyte esterase; Cardiology was consulted for new dx atrial fibrillation, noting a few weeks ago when pt saw her PCP that afib was not noted at that time, ECHO was ordered because of a murmur that was heard, this appt was scheduled for last week however pt missed it, pt denied SOB, orthopnea, CP, noted to have chronic severe bilateral LE lympedema which she does not feel has changed from baseline, EKG s howeed afib with a VR of 139 bpm, prior ECHO in 2023 showed LVEEF 68% and moderate LVH, moderate aortic stenosis noted, pt started on eliquis, metoprolol being continued, repeat ECHO ordered and to be completed this admission, hemoglobin a1c 12.9%; Geriatrics service also consulted, per chart pt's brother noting that he feels pt is not safe to live home alone, noting pt exhibits poor hygiene (not showering often). 45 gm CHO Control diet ordered. RD visited pt's room this morning, VM was in room, breakfast tray was 100% consumed (oatmeal, egg, tang, fruit, milk and coffee), pt states at home she was not really eating well, mostly attributes to schedule and being gone from her home in the morning (at appointments) and not getting home until ~3-4PM, this happens a few times a week, pt does not eat before leaving the house so on those days may only eat once/day, RD asked on average how many meals/day she has been eating recently and she stated twice/day, states she does not cook and mostly lives on prepared meals from [employer] (meals that have meat, veggie, etc and just require to be heated), states she only eats ~1/3 of those meals at a time, for beverages pt used to drink Vitamin Water but states the brand had changed at [employer] to something that she tried to drink but 'it tasted like draino' and she swore to only drink water but feels she is drinking so much that she is 'water logged'; pt confirms not taking insulin since June, referenced time in April when she fell and if she had eaten she would have (d/t not being able to take insulin and laying on the floor for 2 days), states [employer] frequently check on her/call her home?; RD spent time reviewing hospital menu as well as CHO allotment, walked pt through what she could order for lunch ([employer] also came in and obtained future meal orders), pt states 'I'm shocked how much food and what types I can get', RD encouraged pt to eat at least 3 meals/day here and after discharge, noting importance of relationship between CHO intake and insulin administration and discouraged pt skipping meals/eating only once or even twice/day, attached handouts to discharge paperwork as pt states this would be helpful for her, states 'I've been a bad puppy' and laughs, but states she seriously intends to change behaviors and knows she 'messed up'; does confirm getting full quickly s/p gastric bypass, when asked CBW pt estimates ~236# however she is generally a poor historian with weight/time frame, stating weight prior to bypass was '100-something' but then corrects herself, states 'they wanted me to lose 100#' and stated she gained weight?, RD suspects since June w/ uncontrolled DM pt likely lost weight for this reason; lunch meal arrived, call light pressed to obtain blood sugar. Estimated Daily Nutrient Needs: Energy Requirements Based On: Kcal/kg Weight Used for Energy Requirements: Baring Weight for Energy Calculation (kg): 59 kg Total Energy Requirements (kcals/day): 8961-7276 kcal/day (25-30 kcal/kg) Weight Used for Protein Requirements: Baring Weight in Kg Used for Protein Requirements: 59 kg Estimated Total Protein (g/day): 71-77 gm protein/day (1.2-1.3 gm protein/kg) Estimated Daily Total Fluid (ml/day): per MD Nutrition Related Findings: Abd WDL, last BM 11/01; mild BUE, +1 BLE edema; medications reviewed; labs: BG on arrival (617), Hemoglobin a1c (12.9%), BNP ^ Wound Type: Multiple, Pressure Injury, Stage III, Wound Consult Pending (R & L buttock PI, R calf wound, severe lymphedema, she stated to RD that swelling is essentially at baseline, reported having 'wounds' on backside; Can 16) Current Nutrition Therapies: Adult diet Regular; 3 carb choices (45 gm/meal) Current Oral Intake Average Meal Intake: 76-100% Average Supplements Intake: None Ordered Anthropometric Measures: Height: 167.6 cm (5' 6) Current Body Weight: 97.5 kg (214 lb 15.2 oz) (11/03 weight per chart; pt in chair at time of RD visit) Admission Body Weight: (varying weights documented so far, initially 236# stated, then 94# (suspect was meant to be kg), then 208#) Usual Body Weight: (last year weights were 255-269#, in Mar 255# was documented) Baring Body Weight (lbs) (Calculated): 130 lbs Baring Body Weight (Kg) (Calculated): 59 kg % Baring Body Weight (Calculated): 165.3 % BMI (kg/m2) (Calculated): 34.7 Weight Adjustment For: No Adjustment BMI Categories: Obese Class 1 (BMI 30.0-34.9) (using most recent weight) Nutrition Diagnosis: Severe malnutrition, In context of chronic illness related to inadequate protein-energy intake, endocrine dysfuntion (lack of insulin use) as evidenced by lab values, poor intake prior to admission, weight loss greater than or equal to 10% in 6 months Nutrition Interventions: Nutrition Education/Counseling: Education initiated (Needs reinforcement, attached handouts to d/c paperwork) Coordination of Nutrition Care: Continue to monitor while inpatient Plan of Care discussed with: pt Goals: Goals: PO intake 75% or greater, by next RD assessment, other (specify) Specify Other Goals: labs controlled Nutrition Monitoring and Evaluation: Behavioral-Environmental Outcomes: None Identified Food/Nutrient Intake Outcomes: Food and Nutrient Intake, Supplement Intake Physical Signs/Symptoms Outcomes: Biochemical Data, Fluid Status or Edema, Meal Time Behavior, Nutrition Focused Physical Findings, Skin, Weight Discharge Planning: Too soon to determine Wanda Beckman RD Contact: Secure chat or *[phone] Associated Order(s): IP CONSULT TO GERIATRICS Images from the original note were not included. [facility] Geriatric Medicine Inpatient Consult Service Admission Date: 11/01/2024 Admission Status: INPATIENT Reason for Appointment Chief Complaint Patient presents with Altered Mental Status Hyperglycemia Pt arrived for hyperglycemia, confusion and lightheadedness for past couple of days. Geriatrics consulted for Failure to thrive, confusion Assessment Principal Problem: Hyperglycemia Plan During this encounter, I spent 75 minutes -Reviewing previous notes, -Reviewing labs, -Obtaining and/or reviewing separately obtained history, -Ordering prescription medications, tests and procedures, -Documenting clinical information in the patients electronic record, -Coordination of care for the patient, and -Performing a medically appropriate exam and/or evaluation. Delirium -Nursing Delirium Screen (Nu-Desc): Nursing Delirium Symptom Checklist Total Score: 1 Predisposing factors for this patient include: Precipitating factors for this patient include:infection, hyperglycemia -Delirium protocol - Continue evidence-based nonpharmacologic interventions for prevention and treatment of delirium: - redirect/reorient/reassure frequently - avoid restraints and instead utilize sitter as needed for safety - early mobilization as medically appropriate, OOB for meals as able - have patient use glasses and hearing aides - use familiar objects (family photos and items from home) - sleep hygiene, limit nighttime care to promote sleep/wake cycle - hydrate and encourage PO intake when medically appropriate - minimize/camouflage lines and tethers as able - minimize narcotics as long as pain is adequately controlled - avoid benzos and anticholinergic medications -Avoid antipsychotics unless patient is a danger to themselves or others. -Encourage PO intake, time up in chair, family visits, supervised ambulation, and sleep hygiene -If agitated, assess for and consider treating for pain -QTc= 463 -Monitor for constipation/urinary retention - last BM unknown Debility Declining functional status -Acute on chronic. -Agree with PT/OT referral. - Even preceding her acute illness she had been looking into additional services to help at home as, per conversation with her niece, it appears that she was starting to need more help with things like ADLs. -Agree that she will benefit from skilled rehab at discharge. Memory loss -Family history of Alzheimer's dementia in her mother. - Has expressed concern about her memory to her niece. - Cognitive decline likely acute on chronic with acute component being secondary to her hyperglycemia and urinary tract infection. - No cognitive testing performed inpatient as she is encephalopathic and any cognitive testing performed in this condition would not be an accurate reflection of her true cognitive baseline. - She should follow-up with [facility] as an outpatient. -Appointment information for [facility] included in discharge paperwork. Weight loss -History of gastric bypass in 2018. -Told her niece that she has been losing a lot of weight recently. Her brother confirms this when he last saw her. Her niece is unsure how much weight she lost specifically over what period of time. -She told her niece that she had not been taking her insulin because she was afraid that she would bottom out given her weight loss. - She has a history of endometrial cancer for which she had a hysterectomy and radiation treatment per her niece's recollection. - She shared her weight loss concerns with her PCP who did order an outpatient CT chest, abdomen, and pelvis with contrast. - Weight loss could be due to uncontrolled diabetes, given her cancer history, it is reasonable to rule out malignancy. Subjective: HPI 69 y.o. year-old female presented from home for hyperglycemia and altered mental status on 11/01/2024 . Per review of history and physical she reported feeling poorly over the last few days. She endorsed increased weakness and increased urinary frequency. She independently took herself off of insulin in June because she felt that she could control her diabetes with diet and exercise. On arrival to the hospital her blood sugar was elevated to 617. She was started on an insulin drip and transition to subcutaneous insulin. Albumin was 2.5. BNP was 6801. High-sensitivity troponin was elevated. Lactic acid was within normal limits. White blood cell count was within normal limits. Urinalysis showed 3-5 squamous epithelials and pyuria. Talk screen negative. Urine culture ordered. Urine culture grew E. coli. CT head showed no acute intracranial abnormality and diffuse cortical volume loss and chronic small vessel ischemic changes. X-ray chest showed no acute process. Creatinine on admission was 1.62. This is trended down to 1.26. Hemoglobin A1c was 12.9. TSH was 3.03. Renal ultrasound showed mildly increased bilateral renal echotexture. She is currently on ceftriaxone. Cardiology consulted for new onset atrial fibrillation. Per cardiology some of her new onset weakness could be related to a hip heart. Echo ordered. Family expressed concern about her ability to live alone safely. She endorsed that her leg wraps had not been changed in months so she had not showered in months because she cannot get them wet. OT recommending SNF at discharge. PT recommending SNF at discharge. Per case management note, Mrs. Potter is agreeable to going to SNF for rehab at discharge. Collateral history obtained from Niece . Mrs Potter is unable to tell me why she is in the hospital. Her speech is rambling and vague. Seems frustrated about something that has happened in the hospital but can only tell me that she has no idea what is going on and she did not know who was in charge of managing whatever. She substitutes many words with what ever [place] makes it very difficult to understand what she is referencing as she is talking. She also perseverates on some frustration that seems to be centered around her brother but again she uses the word whatever for any specific words that might lend context and it is impossible to tell what she is referencing. She is more clear when asked direct questions. When I ask her if she is in the hospital she responds in the affirmative. She is able to confirm that she is having some dysuria. Confirms that she lives alone. States that she stopped driving about a week ago when I asked her if she was still driving. Unable to tell me who her primary care doctor is but when I ask her if it is Dr. Beatty she again responds in the affirmative. She also was able to tell me that her power of document review attorney is her niece, Nieves. States that she has a friend who comes to check on her several times a week. Nieves-30 min She has been very confused since coming into the hospital. Nieves has talked to her a few times. Initially knew why she was going to the ED. Her friends checks on her a few times and week and noticed that she was off. In the ED, she was pleasantly confused but off. Yesterday she said the boss is here.Nieves states that she knew something was off even before she went into the hospital. Told Nieves that she was losing weight. Admitted to Nieves that she was not taking her insulin like she should because she didn't want to bottom out as she was losing weight. Also didn't feel comfortable driving and mentioned it to Nieves. She was planning to reach out to Dr. Case Rizzo'ly to get more services at home. Had plan for outpatient echo, CT head and CT hip. Her mother had Alzheimer's dementia. She was worried about her memory due to her family history. Three years ago she was diagnosed with uterine cancer and had a complete hysterectomy. She had radiation for 6 months. At the point where she knows that she needs more help with ADLs but doesn't want her rights taken away from her and is scared to go to a facility. Was looking into [facility] for transportation. Has been using whatever when she can't find the word that she wants to say. Nieves has noticed some mild memory changes over the past year. She always writes things down so she doesn't forget. She has done this for a long time. She has had some cognitive decline over the past few weeks and admitted that she was forgetting things. [place] that she was losing a lot of weight. Geriatric Risk Tool The following questions were answered by:: Patient Do you (or your loved one) have problems with your memory that affect your (their) day to day activities or that you or your family notice most days?: No Do you (or loved one) live alone AND/OR Do you (they) need more help at home then you (they) have now or currently available?: No Have you (or loved one) been in the hospital in the last 3 months?: No Do you (or loved one) have trouble with your walking or balance? Or Have you (they) fallen recently?: Yes Do you (or loved one) take more than 5 medications or vitamins every day?: Yes When compared to others your (their) own age, are you (or loved one) in worse health?: No Total Score: 2 Physician Notified?: No Quick Cognitive Screen (QCS): Nursing Delirium Screen (Nu-Desc): Nursing Delirium Symptom Checklist Total Score: 1 Known to the [facility]? No Allergies Allergen Reactions Bimatoprost Other Blurred vision Doxycycline Hives Erythromycin Hives Levaquin [Levofloxacin] Hives Macrobid [Nitrofurantoin] Hives Penicillins Hives Levofloxacin In D5w Swelling oral Macrolides And Ketolides Hives 1980 Molds & Smuts Itching Mold allergy Nitrofurantoin Monohyd Macro Itching Other Itching Medications reviewed in hospital records. Past Medical History: Diagnosis Date Anxiety Asthma Deficiency of nutrient elements Depression Dry eye Fatigue Gastritis GERD (gastroesophageal reflux disease) Glaucoma Glaucoma Hyperlipidemia Hypertension Hypothyroid Hypothyroidism Incontinence Intestinal malabsorption Lymph edema Morbid obesity (HCC) Obstructive sleep apnea PMB (postmenopausal bleeding) Polycystic ovarian syndrome Psoriasis SOB (shortness of breath) on exertion Thyroglossal duct cyst Type 2 diabetes mellitus without complication (HCC) Urinary tract infection Uterine cancer (CMS/HCC) (HCC) Vitamin D deficiency 05/10/2017 Zinc deficiency 06/21/2018 Past Surgical History: Procedure Laterality Date CATARACT EXTRACTION Bilateral CHOLECYSTECTOMY 01/29/2018 w/ LRYGB and Umbilical Hernia repair - [facility] DILATION AND CURETTAGE OF UTERUS 09/03/2020 with hysteroscopy GASTRIC BYPASS 01/29/2018 LRYGB w/ Lap Aggie and Umbilical Hernia repair, [facility] GASTRIC BYPASS HYSTERECTOMY 09/30/2020 [facility]/BSO; Dr. Cuauhtemoc Stubbs MOUTH SURGERY gum removal to expose wisdom teeth THYROGLOSSAL DUCT EXCISION [address] [facility]- [address] Vin Keating THYROIDECTOMY UMBILICAL HERNIA REPAIR 01/29/2018 w/ LRYGB and Lap Aggie - [facility] UPPER GASTROINTESTINAL ENDOSCOPY 03/20/2017 pre op, [facility] WISDOM TOOTH EXTRACTION 2013 [facility] Social History Tobacco Use Smoking status: Never Smokeless tobacco: Never Substance Use Topics Alcohol use: No Present at visit: patient Marital status: single Children: no children Living arrangement: Alone in her parents old home. Household safety problems: Weakness, confusion Driving safety concerns: had cut back on driving. Elder abuse: Community resources: .looking some additional services. Healthcare Power of Hairspring I Inspector: Yes. Nieves has copies but the originals are in her house. 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 Living Will: Yes. Originals are in her house. Code Status: Full Code Family History Family History Problem Relation Name Age of Onset Stroke Father Obesity Mother dementia Diabetes Mother dementia High Blood Pressure Mother dementia Heart disease Mother dementia Stroke Paternal Grandfather High Blood Pressure Father Diabetes Father Diabetes Paternal Grandfather Heart attack Paternal Grandmother Colon cancer Neg Hx High Blood Pressure Brother Cancer Father bladder Obesity Father Family Status Relation Name Status Father (Not Specified) Mother dementia Alive PGF (Not Specified) PGM Neg Hx (Not Specified) Brother (Not Specified) No partnership data on file Review of Systems Unable to perform ROS: Mental status change Respiratory: Negative for shortness of breath. Genitourinary: Positive for dysuria. Neurological: Negative for dizziness. Functional Status Prior to Admission (I: Independent, A: Assisted, D: Dependent) ADLs I A D Notes Bathing [x] [] [] Dressing [x] [] [] Toileting [x] [] [] Transfers [x] [] [] Feeding [x] [] [] Ambulation [] [] [] Assistive devices: quad cane IADLs I A D Telephone [x] [] [] Transportation [x] [] [] Shopping [x] [] [] Meal prep [x] [] [] Housework [x] [] [] Medications [x] [] [] Finances [x] [] [] Objective: BP 141/93 Pulse 81 Temp 36.7 C (98 F) (Temporal) Resp 16 Ht 5' 6 (1.676 m) Wt 214 lb 15.2 oz (97.5 kg) SpO2 95% BMI 34.69 kg/m Physical Exam HENT: Mouth/Throat: Dentition: Abnormal dentition (missing some bottom teeth.). Cardiovascular: Rate and Rhythm: Rhythm irregular. Heart sounds: Murmur heard. Pulmonary: Effort: Pulmonary effort is normal. No respiratory distress. Abdominal: General: Bowel sounds are normal. Palpations: Abdomen is soft. Tenderness: There is no abdominal tenderness. Musculoskeletal: Right lower leg: Edema present. Left lower leg: Edema present. Skin: General: Skin is warm and dry. Neurological: Mental Status: She is alert. She is disoriented and confused. Psychiatric: Behavior: Behavior is not agitated. Behavior is cooperative. Thought Content: Thought content is paranoid. Cognition and Memory: Cognition is impaired. Comments: Speech is rambling but uninformative. 3 item recall/short term memory: Not assessed as she is still confused. Clock Drawing Test: Not assessed as she is still confused. Labs and Imaging: Lab Results Component Value Date WBC 8.8 11/03/2024 HGB 12.8 11/03/2024 HCT 37.8 11/03/2024 MCV 85.3 11/03/2024 PLT 200 11/03/2024 Lab Results Component Value Date NA 137 11/03/2024 K 3.6 11/03/2024 CL 105 11/03/2024 CO2 19 (L) 11/03/2024 BUN 31 (H) 11/03/2024 CREATININE 1.03 11/03/2024 GLUCOSE 238 (H) 11/03/2024 CALCIUM 8.8 11/03/2024 PROT 7.3 11/01/2024 BILITOT 1.3 (H) 11/01/2024 ALKPHOS 99 11/01/2024 AST 20 11/01/2024 ALT 9 11/01/2024 Lab Results Component Value Date VITD25 22 (L) 04/06/2021 TSH 3.03 11/02/2024 UA: Lab Results Component Value Date COLORU Yellow 11/01/2024 GLUCOSEU >1,000 (A) 11/01/2024 UROBILINOGEN Normal 11/01/2024 No results found for the last 90 days. Pain Management Panel 11/01/2024 Pain Management Panel AMPHETAMINE SCREEN Negative COCAINE METAB. SCREEN Negative METHADONE SCREEN Negative Details === 11/01/24 === CT HEAD WO IV CONTRAST - Impression - No acute intracranial abnormality. Diffuse cortical volume loss and chronic small vessel ischemic changes. Report Dictated on Electronically Signed By: Anastasia Spencer MD Electronically Signed Date/Time: 11/01/2024 7:51 PM EDT No results found for this or any previous visit from the past 365 days. === 11/01/24 === XR CHEST 1 VIEW - Impression - No radiographic acute cardiopulmonary process. Report Dictated on Electronically Signed By: Claudette Nunez MD Electronically Signed Date/Time: 11/01/2024 6:25 PM EDT Comment: Please note that portions of this report were produced using speech recognition software and may contain errors related to that system including errors in grammar, punctuation, and spelling, as well as words and phrases that may be inappropriate. If there are any questions or concerns please feel free to contact the dictating provider for clarification. Associated Order(s): IP CONSULT TO CARDIOLOGY [facility] Cardiology/Electrophysiology New Patient Consult Note Reason for Consult/Chief Complaint: New onset atrial fibrillation Consulting MD: Dr. Kingston History of Present Illness: Dameon Potter is a 69 y.o. female admitted to [facility] after presenting to the ED with 3 to 4 weeks of not feeling well. In the ED she was found to have a blood sugar of 614 and to be in newly diagnosed atrial fibrillation. She reports that she has not been taking her insulin as prescribed. She saw her PCP a couple weeks ago. She was not told she was in A-fib at that point, though she does not recall getting an EKG. An echo was ordered because a murmur was heard (she has aortic stenosis by an echo in Feb 2024). She missed that appointment last week. She denies shortness of breath, PND, orthopnea, palpitation, or chest pain. She has chronic severe bilateral lower extremity lymphedema, and she does not feel this has changed from the past. Showed EKG showed atrial fibrillation with a VR of 139 bpm. Telemetry has shown atrial fibrillation with a controlled ventricular response now mostly in the 70 to 90 bpm range. An echo from Feb 2024 showed an LVEF of 68% and moderate LVH. She has moderate aortic stenosis with a mean gradient of 25 mmHg Assessment and Plan: 1. New persistent atrial fibrillation: It is possible that some of her weakness/fatigue is related to her atrial fibrillation, though she has multiple other medical reasons for paul including uncontrolled diabetes. Her hemoglobin A1c is 12.9. DC heparin. Start Eliquis 5 mg twice daily. Continue metoprolol 25 mg twice daily for now. She may need a higher dose. She was supposed to be on Coreg at home but I am not sure that she was taking it. Her BNP is 6800. Hopefully this is only related to her A-fib and diastolic dysfunction. I will repeat an echo. 2. Hypertension: This appears fairly well-controlled. We will adjust the medications as needed 3. Uncontrolled diabetes: Management per primary team. 4. Lymphedema: Severe, but by her account at baseline. She does have some cellulitic changes. Past Medical History: Past Medical History: Diagnosis Date Anxiety Asthma Deficiency of nutrient elements Depression Dry eye Fatigue Gastritis GERD (gastroesophageal reflux disease) Glaucoma Glaucoma Hyperlipidemia Hypertension Hypothyroid Hypothyroidism Incontinence Intestinal malabsorption Lymph edema Morbid obesity (HCC) Obstructive sleep apnea PMB (postmenopausal bleeding) Polycystic ovarian syndrome Psoriasis SOB (shortness of breath) on exertion Thyroglossal duct cyst Type 2 diabetes mellitus without complication (HCC) Urinary tract infection Uterine cancer (CMS/HCC) (HCC) Vitamin D deficiency 05/10/2017 Zinc deficiency 06/21/2018 Past Surgical History Past Surgical History: Procedure Laterality Date CATARACT EXTRACTION Bilateral CHOLECYSTECTOMY 01/29/2018 w/ LRYGB and Umbilical Hernia repair - [facility] DILATION AND CURETTAGE OF UTERUS 09/03/2020 with hysteroscopy GASTRIC BYPASS 01/29/2018 LRYGB w/ Lap Aggie and Umbilical Hernia repair, [facility] GASTRIC BYPASS HYSTERECTOMY 09/30/2020 [facility]/BSO; Dr. Cuauhtemoc Stubbs MOUTH SURGERY gum removal to expose wisdom teeth THYROGLOSSAL DUCT EXCISION 2000 [facility]- Dr. Vin Keating THYROIDECTOMY UMBILICAL HERNIA REPAIR 01/29/2018 w/ LRYGB and Lap Aggie - [facility] UPPER GASTROINTESTINAL ENDOSCOPY 03/20/2017 pre op, [facility] WISDOM TOOTH EXTRACTION [facility] Family History Family History Problem Relation Name Age of Onset Stroke Father Obesity Mother dementia Diabetes Mother dementia High Blood Pressure Mother dementia Heart disease Mother dementia Stroke Paternal Grandfather High Blood Pressure Father Diabetes Father Diabetes Paternal Grandfather Heart attack Paternal Grandmother Colon cancer Neg Hx High Blood Pressure Brother Cancer Father bladder Obesity Father Social History Social History Tobacco Use Smoking status: Never Smokeless tobacco: Never Substance Use Topics Alcohol use: No Drug use: No Medications: apixaban, 5 mg, Oral, BID atorvastatin, 40 mg, Oral, Daily brimonidine, 1 drop, Both Eyes, TID cefTRIAXone, 1,000 mg, IntraVENous, q24h insulin glargine, 24 Units, SubCUTAneous, Nightly insulin lispro, 0-18 Units, SubCUTAneous, TID WC And insulin lispro, 0-18 Units, SubCUTAneous, Nightly insulin lispro, 8 Units, SubCUTAneous, TID WC levothyroxine, 175 mcg, Oral, qAM AC metoprolol tartrate, 25 mg, Oral, BID timolol, 1 drop, Both Eyes, BID triamcinolone, , Topical, Once Infusion Medications: dextrose, 200 mL/hr dextrose, 200 mL/hr dextrose 5 % and sodium chloride 0.45 %, 250 mL/hr sodium chloride, 75 mL/hr, Last Rate: 75 mL/hr (11/02/24 0648) Allergies: Reviewed Physical Examination: Vitals: 11/02/24 0525 11/02/24 0751 11/02/24 0800 11/02/24 0849 BP: 129/80 (!) 134/92 (!) 139/100 101/75 BP Location: Left arm Patient Position: Sitting Pulse: 97 99 108 93 Resp: 16 14 14 Temp: TempSrc: SpO2: 99% 98% 98% Weight: Height: Intake/Output Summary (Last 24 hours) at 11/02/2024 1014 Last data filed at 11/01/2024 2117 Gross per 24 hour Intake 50 ml Output -- Net 50 ml Wt Readings from Last 3 Encounters: 11/01/24 236 lb (107 kg) 03/26/24 255 lb 4.8 oz (116 kg) 03/14/24 255 lb (116 kg) Constitutional: Appears poorly kept/disheveled and looks stated age; in NAD Psychiatric: A &O x3 Mood is pleasant; Affect is appropriate Musculoskeletal: Normocephalic; no joint swelling; gait not tested; 5/5 muscle strength bilaterally in upper and lower extremities; no clubbing or cyanosis HEENT: Pupils are equal and round; Conjunctiva are not injected; Sclera are non-icteric; Airway and Nares are patent; Ears without external abnormalities. Mucosa is pink; Dentition is poor Neck: Supple; No JVD or Bruits; No thyromegaly; No lymphadenopathy Respiratory: Lungs are clear with no rales or wheezes. Respiratory effort is normal and symmetrical bilaterally; Good air movement bilaterally Heart: IRRR; Nl S1 and diminished S2 2/6 aortic stenosis murmur. No crg Abdomen: NABS soft, non-tender, non-distended; no organomegaly; no obvious masses Extremities/Skin: 2-3+ LE edema; Skin warm to touch and well perfused; skin discoloration is present Neuro: sensation and motor function are grossly normal. Cranial Nerves are grossly intact Laboratory Tests: Recent Labs 11/01/24 1809 11/01/24 2208 11/02/24 0045 11/02/24 0406 NA 128* 134* 133* 133* K 4.8 3.7 4.1 4.5 CL 95* 102 100 102 CO2 11* 17* 20* 19* BUN 30* 31* 31* 31* CREATININE 1.62* 1.43* 1.38* 1.26* EGFR 34.3* 39.8* 41.5* 46.3* No results for input(s): CKTOTAL, CKMB, CKMBINDEX, TROPONINI in the last 72 hours. Recent Labs 11/01/24 1809 BNP 6,801* Recent Labs 11/01/24 1809 11/02/24 0406 WBC 10.1 9.5 HGB 14.2 13.6 12.5 HCT 39.5 36.2 MCV 84.2 83.6 PLT 191 169 Lab Results Component Value Date HGBA1C 12.9 (H) 11/02/2024 Lab Results Component Value Date TSH 3.03 11/02/2024 Lab Results Component Value Date CHOL 142 04/29/2024 CHOL 151 02/18/2024 CHOL 149 04/06/2021 Lab Results Component Value Date HDL 44 04/29/2024 HDL 49 02/18/2024 HDL 50 06/22/2021 HDL 50 06/22/2021 Lab Results Component Value Date LDLCALC 71 04/29/2024 LDLCALC 76 02/18/2024 LDLCALC 77 06/22/2021 Lab Results Component Value Date TRIG 137 04/29/2024 TRIG 129 02/18/2024 TRIG 414 06/22/2021 Lab Results Component Value Date FERRITIN 77 03/04/2020 Reports reviewed: Last Echo 03/14/24 TRANSTHORACIC ECHOCARDIOGRAM (TTE) COMPLETE (CONTRAST/BUBBLE/3D PRN) 03/14/2024 4:26 PM (Final) Interpretation Summary Left Ventricle: Left ventricle is smaller than normal. Moderately increased wall thickness. Normal left ventricular systolic function. EF by 2D Simpsons Biplane is 68%. Global longitudinal strain is -17.1%. Normal wall motion. Right Ventricle: Right ventricle size is normal. Normal systolic function. Aortic Valve: Not well visualized. Trileaflet. Moderately thickened cusps. Moderately calcified cusps. Moderate stenosis of the aortic valve. AV mean gradient is 25 mmHg. AV peak gradient is 56 mmHg. LVOT:AV VTI Index is 0.33. AV area by continuity VTI is 1.0 cm2. Aorta: Normal sized sinuses of Valsalva. Mildly dilated ascending aorta. Ao ascending diameter is 3.7 cm. Signed by: Jose Martin Garcia MD on 03/14/2024 4:26 PM Dominga Martinez MD DATE of SERVICE: 11/02/2024 documented in this encounter [facility] 11-03-2024 Consult note Associated Order (s): IP CONSULT TO GERIATRICS Images from the original note were not included. [facility] Geriatric Medicine Inpatient Consult Service Admission Date: 11/01/2024 Admission Status: INPATIENT Reason for Appointment Chief Complaint Patient presents with Altered Mental Status Hyperglycemia Pt arrived for hyperglycemia, confusion and lightheadedness for past couple of days. Geriatrics consulted for Failure to thrive, confusion Assessment Principal Problem: Hyperglycemia Plan During this encounter, I spent 75 minutes -Reviewing previous notes, -Reviewing labs, -Obtaining and/or reviewing separately obtained history, -Ordering prescription medications, tests and procedures, -Documenting clinical information in the patients electronic record, -Coordination of care for the patient, and -Performing a medically appropriate exam and/or evaluation. Delirium -Nursing Delirium Screen (Nu-Desc): Nursing Delirium Symptom Checklist Total Score: 1 Predisposing factors for this patient include: Precipitating factors for this patient include:infection, hyperglycemia -Delirium protocol - Continue evidence-based nonpharmacologic interventions for prevention and treatment of delirium: - redirect/reorient/reassure frequently - avoid restraints and instead utilize sitter as needed for safety - early mobilization as medically appropriate, OOB for meals as able - have patient use glasses and hearing aides - use familiar objects (family photos and items from home) - sleep hygiene, limit nighttime care to promote sleep/wake cycle - hydrate and encourage PO intake when medically appropriate - minimize/camouflage lines and tethers as able - minimize narcotics as long as pain is adequately controlled - avoid benzos and anticholinergic medications -Avoid antipsychotics unless patient is a danger to themselves or others. -Encourage PO intake, time up in chair, family visits, supervised ambulation, and sleep hygiene -If agitated, assess for and consider treating for pain -QTc= 463 -Monitor for constipation/urinary retention - last BM unknown Debility Declining functional status -Acute on chronic. -Agree with PT/OT referral. - Even preceding her acute illness she had been looking into additional services to help at home as, per conversation with her niece, it appears that she was starting to need more help with things like ADLs. -Agree that she will benefit from skilled rehab at discharge. Memory loss -Family history of Alzheimer's dementia in her mother. - Has expressed concern about her memory to her niece. - Cognitive decline likely acute on chronic with acute component being secondary to her hyperglycemia and urinary tract infection. - No cognitive testing performed inpatient as she is encephalopathic and any cognitive testing performed in this condition would not be an accurate reflection of her true cognitive baseline. - She should follow-up with [facility] as an outpatient. -Appointment information for [facility] included in discharge paperwork. Weight loss -History of gastric bypass in 2018. -Told her niece that she has been losing a lot of weight recently. Her brother confirms this when he last saw her. Her niece is unsure how much weight she lost specifically over what period of time. -She told her niece that she had not been taking her insulin because she was afraid that she would bottom out given her weight loss. - She has a history of endometrial cancer for which she had a hysterectomy and radiation treatment per her niece's recollection. - She shared her weight loss concerns with her PCP who did order an outpatient CT chest, abdomen, and pelvis with contrast. - Weight loss could be due to uncontrolled diabetes, given her cancer history, it is reasonable to rule out malignancy. Subjective: HPI 69 y.o. year-old female presented from home for hyperglycemia and altered mental status on 11/01/2024 . Per review of history and physical she reported feeling poorly over the last few days. She endorsed increased weakness and increased urinary frequency. She independently took herself off of insulin in June because she felt that she could control her diabetes with diet and exercise. On arrival to the hospital her blood sugar was elevated to 617. She was started on an insulin drip and transition to subcutaneous insulin. Albumin was 2.5. BNP was 6801. High-sensitivity troponin was elevated. Lactic acid was within normal limits. White blood cell count was within normal limits. Urinalysis showed 3-5 squamous epithelials and pyuria. Talk screen negative. Urine culture ordered. Urine culture grew E. coli. CT head showed no acute intracranial abnormality and diffuse cortical volume loss and chronic small vessel ischemic changes. X-ray chest showed no acute process. Creatinine on admission was 1.62. This is trended down to 1.26. Hemoglobin A1c was 12.9. TSH was 3.03. Renal ultrasound showed mildly increased bilateral renal echotexture. She is currently on ceftriaxone. Cardiology consulted for new onset atrial fibrillation. Per cardiology some of her new onset weakness could be related to a hip heart. Echo ordered. Family expressed concern about her ability to live alone safely. She endorsed that her leg wraps had not been changed in months so she had not showered in months because she cannot get them wet. OT recommending SNF at discharge. PT recommending SNF at discharge. Per case management note, Mrs. Potter is agreeable to going to SNF for rehab at discharge. Collateral history obtained from Niece . Mrs Potter is unable to tell me why she is in the hospital. Her speech is rambling and vague. Seems frustrated about something that has happened in the hospital but can only tell me that she has no idea what is going on and she did not know who was in charge of managing whatever. She substitutes many words with what ever [place] makes it very difficult to understand what she is referencing as she is talking. She also perseverates on some frustration that seems to be centered around her brother but again she uses the word whatever for any specific words that might lend context and it is impossible to tell what she is referencing. She is more clear when asked direct questions. When I ask her if she is in the hospital she responds in the affirmative. She is able to confirm that she is having some dysuria. Confirms that she lives alone. States that she stopped driving about a week ago when I asked her if she was still driving. Unable to tell me who her primary care doctor is but when I ask her if it is Dr. Beatty she again responds in the affirmative. She also was able to tell me that her power of document review attorney is her niece, Nieves. States that she has a friend who comes to check on her several times a week. Nieves-30 min She has been very confused since coming into the hospital. Nieves has talked to her a few times. Initially knew why she was going to the ED. Her friends checks on her a few times and week and noticed that she was off. In the ED, she was pleasantly confused but off. Yesterday she said the boss is here.Nieves states that she knew something was off even before she went into the hospital. Told Nieves that she was losing weight. Admitted to Nieves that she was not taking her insulin like she should because she didn't want to bottom out as she was losing weight. Also didn't feel comfortable driving and mentioned it to Nieves. She was planning to reach out to Dr. Case Rizzo'ly to get more services at home. Had plan for outpatient echo, CT head and CT hip. Her mother had Alzheimer's dementia. She was worried about her memory due to her family history. Three years ago she was diagnosed with uterine cancer and had a complete hysterectomy. She had radiation for 6 months. At the point where she knows that she needs more help with ADLs but doesn't want her rights taken away from her and is scared to go to a facility. Was looking into [employer] for transportation. Has been using whatever when she can't find the word that she wants to say. Nieves has noticed some mild memory changes over the past year. She always writes things down so she doesn't forget. She has done this for a long time. She has had some cognitive decline over the past few weeks and admitted that she was forgetting things. [place] that she was losing a lot of weight. Geriatric Risk Tool The following questions were answered by:: Patient Do you (or your loved one) have problems with your memory that affect your (their) day to day activities or that you or your family notice most days?: No Do you (or loved one) live alone AND/OR Do you (they) need more help at home then you (they) have now or currently available?: No Have you (or loved one) been in the hospital in the last 3 months?: No Do you (or loved one) have trouble with your walking or balance? Or Have you (they) fallen recently?: Yes Do you (or loved one) take more than 5 medications or vitamins every day?: Yes When compared to others your (their) own age, are you (or loved one) in worse health?: No Total Score: 2 Physician Notified?: No Quick Cognitive Screen (QCS): Nursing Delirium Screen (Nu-Desc): Nursing Delirium Symptom Checklist Total Score: 1 Known to the [facility]? No Allergies Allergen Reactions Bimatoprost Other Blurred vision Doxycycline Hives Erythromycin Hives Levaquin [Levofloxacin] Hives Macrobid [Nitrofurantoin] Hives Penicillins Hives Levofloxacin In D5w Swelling oral Macrolides And Ketolides Hives 1980 Molds & Smuts Itching Mold allergy Nitrofurantoin Monohyd Macro Itching Other Itching Medications reviewed in hospital records. Past Medical History: Diagnosis Date Anxiety Asthma Deficiency of nutrient elements Depression Dry eye Fatigue Gastritis GERD (gastroesophageal reflux disease) Glaucoma Glaucoma Hyperlipidemia Hypertension Hypothyroid Hypothyroidism Incontinence Intestinal malabsorption Lymph edema Morbid obesity (HCC) Obstructive sleep apnea PMB (postmenopausal bleeding) Polycystic ovarian syndrome Psoriasis SOB (shortness of breath) on exertion Thyroglossal duct cyst Type 2 diabetes mellitus without complication (HCC) Urinary tract infection Uterine cancer (CMS/HCC) (HCC) Vitamin D deficiency 05/10/2017 Zinc deficiency 06/21/2018 Past Surgical History: Procedure Laterality Date CATARACT EXTRACTION Bilateral CHOLECYSTECTOMY 01/29/2018 w/ LRYGB and Umbilical Hernia repair - [facility] DILATION AND CURETTAGE OF UTERUS 09/03/2020 with hysteroscopy GASTRIC BYPASS 01/29/2018 LRYGB w/ Lap Aggie and Umbilical Hernia repair, [facility] GASTRIC BYPASS HYSTERECTOMY 09/30/2020 [facility]/BSO; Dr. Cuauhtemoc Stubbs MOUTH SURGERY gum removal to expose wisdom teeth THYROGLOSSAL DUCT EXCISION 2000 [facility]- Dr. Vin Keating THYROIDECTOMY UMBILICAL HERNIA REPAIR 01/29/2018 w/ LRYGB and Lap Aggie - [facility] UPPER GASTROINTESTINAL ENDOSCOPY 03/20/2017 pre op, [facility] WISDOM TOOTH EXTRACTION 2013 [facility] Social History Tobacco Use Smoking status: Never Smokeless tobacco: Never Substance Use Topics Alcohol use: No Present at visit: patient Marital status: single Children: no children Living arrangement: Alone in her parents old home. Household safety problems: Weakness, confusion Driving safety concerns: had cut back on driving. Elder abuse: Community resources: .looking some additional services. Healthcare Power of Hairspring I Inspector: Yes. Nieves has copies but the originals are in her house. 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 Living Will: Yes. Originals are in her house. Code Status: Full Code Family History Family History Problem Relation Name Age of Onset Stroke Father Obesity Mother dementia Diabetes Mother dementia High Blood Pressure Mother dementia Heart disease Mother dementia Stroke Paternal Grandfather High Blood Pressure Father Diabetes Father Diabetes Paternal Grandfather Heart attack Paternal Grandmother Colon cancer Neg Hx High Blood Pressure Brother Cancer Father bladder Obesity Father Family Status Relation Name Status Father (Not Specified) Mother dementia Alive PGF (Not Specified) PGM Neg Hx (Not Specified) Brother (Not Specified) No partnership data on file Review of Systems Unable to perform ROS: Mental status change Respiratory: Negative for shortness of breath. Genitourinary: Positive for dysuria. Neurological: Negative for dizziness. Functional Status Prior to Admission (I: Independent, A: Assisted, D: Dependent) ADLs I A D Notes Bathing [x] [] [] Dressing [x] [] [] Toileting [x] [] [] Transfers [x] [] [] Feeding [x] [] [] Ambulation [] [] [] Assistive devices: quad cane IADLs I A D Telephone [x] [] [] Transportation [x] [] [] Shopping [x] [] [] Meal prep [x] [] [] Housework [x] [] [] Medications [x] [] [] Finances [x] [] [] Objective: BP 141/93 Pulse 81 Temp 36.7 C (98 F) (Temporal) Resp 16 Ht 5' 6 (1.676 m) Wt 214 lb 15.2 oz (97.5 kg) SpO2 95% BMI 34.69 kg/m Physical Exam HENT: Mouth/Throat: Dentition: Abnormal dentition (missing some bottom teeth.). Cardiovascular: Rate and Rhythm: Rhythm irregular. Heart sounds: Murmur heard. Pulmonary: Effort: Pulmonary effort is normal. No respiratory distress. Abdominal: General: Bowel sounds are normal. Palpations: Abdomen is soft. Tenderness: There is no abdominal tenderness. Musculoskeletal: Right lower leg: Edema present. Left lower leg: Edema present. Skin: General: Skin is warm and dry. Neurological: Mental Status: She is alert. She is disoriented and confused. Psychiatric: Behavior: Behavior is not agitated. Behavior is cooperative. Thought Content: Thought content is paranoid. Cognition and Memory: Cognition is impaired. Comments: Speech is rambling but uninformative. 3 item recall/short term memory: Not assessed as she is still confused. Clock Drawing Test: Not assessed as she is still confused. Labs and Imaging: Lab Results Component Value Date WBC 8.8 11/03/2024 HGB 12.8 11/03/2024 HCT 37.8 11/03/2024 MCV 85.3 11/03/2024 PLT 200 11/03/2024 Lab Results Component Value Date NA 137 11/03/2024 K 3.6 11/03/2024 CL 105 11/03/2024 CO2 19 (L) 11/03/2024 BUN 31 (H) 11/03/2024 CREATININE 1.03 11/03/2024 GLUCOSE 238 (H) 11/03/2024 CALCIUM 8.8 11/03/2024 PROT 7.3 11/01/2024 BILITOT 1.3 (H) 11/01/2024 ALKPHOS 99 11/01/2024 AST 20 11/01/2024 ALT 9 11/01/2024 Lab Results Component Value Date VITD25 22 (L) 04/06/2021 TSH 3.03 11/02/2024 UA: Lab Results Component Value Date COLORU Yellow 11/01/2024 GLUCOSEU >1,000 (A) 11/01/2024 UROBILINOGEN Normal 11/01/2024 No results found for the last 90 days. Pain Management Panel 11/01/2024 Pain Management Panel AMPHETAMINE SCREEN Negative COCAINE METAB. SCREEN Negative METHADONE SCREEN Negative Details === 11/01/24 === CT HEAD WO IV CONTRAST - Impression - No acute intracranial abnormality. Diffuse cortical volume loss and chronic small vessel ischemic changes. Report Dictated on Electronically Signed By: Anastasia Spencer MD Electronically Signed Date/Time: 11/01/2024 7:51 PM EDT No results found for this or any previous visit from the past 365 days. === 11/01/24 === XR CHEST 1 VIEW - Impression - No radiographic acute cardiopulmonary process. Report Dictated on Electronically Signed By: Claudette Nunez MD Electronically Signed Date/Time: 11/01/2024 6:25 PM EDT Comment: Please note that portions of this report were produced using speech recognition software and may contain errors related to that system including errors in grammar, punctuation, and spelling, as well as words and phrases that may be inappropriate. If there are any questions or concerns please feel free to contact the dictating provider for clarification. [facility] 11-02-2024 Nurse Note Jennifer Pickett updated on patients current condition and current clinical status. Nieves made aware patient exhibits signs of confusion but is clinically stable with no current signs of any life threatening of critical symptoms to appreciate at this time. Direct advancement paper work were discussed and patient is a DNI. Patients brother also updated and he made nursing staff aware that he feels that she's not safe to live home alone. Patient exhibits poor hygiene and stated My leg wraps haven't been changed in months so that means I haven't showered in months because I can't get them wet. Physician made aware of all pertinent clinical information. [facility] 11-02-2024 Plan of care note Problem: Knowledge Deficit Goal: Patient/family/caregiver demonstrates understanding of disease process, treatment plan, medications, and discharge instructions Outcome: Progressing Problem: Potential for Compromised Skin Integrity Goal: Skin Integrity is Maintained or Improved Outcome: Progressing Goal: Nutritional status is improving Outcome: Progressing Problem: Urinary Incontinence Goal: Perineal skin integrity is maintained or improved Outcome: Progressing Problem: Potential for Falls Goal: I will remain free of falls Outcome: Progressing Problem: Potential for Falls Goal: I will remain free of falls Outcome: Progressing Problem: Discharge Barriers Goal: My discharge needs are met Outcome: Progressing [facility] 11-02-2024 Consult note Associated Order (s): IP CONSULT TO CARDIOLOGY [facility] Cardiology/Electrophysiology New Patient Consult Note Reason for Consult/Chief Complaint: New onset atrial fibrillation Consulting MD: Dr. Kingston History of Present Illness: Dameon Potter is a 69 y.o. female admitted to [facility] after presenting to the ED with 3 to 4 weeks of not feeling well. In the ED she was found to have a blood sugar of 614 and to be in newly diagnosed atrial fibrillation. She reports that she has not been taking her insulin as prescribed. She saw her PCP a couple weeks ago. She was not told she was in A-fib at that point, though she does not recall getting an EKG. An echo was ordered because a murmur was heard (she has aortic stenosis by an echo in Feb 2024). She missed that appointment last week. She denies shortness of breath, PND, orthopnea, palpitation, or chest pain. She has chronic severe bilateral lower extremity lymphedema, and she does not feel this has changed from the past. Showed EKG showed atrial fibrillation with a VR of 139 bpm. Telemetry has shown atrial fibrillation with a controlled ventricular response now mostly in the 70 to 90 bpm range. An echo from Feb 2024 showed an LVEF of 68% and moderate LVH. She has moderate aortic stenosis with a mean gradient of 25 mmHg Assessment and Plan: 1. New persistent atrial fibrillation: It is possible that some of her weakness/fatigue is related to her atrial fibrillation, though she has multiple other medical reasons for paul including uncontrolled diabetes. Her hemoglobin A1c is 12.9. DC heparin. Start Eliquis 5 mg twice daily. Continue metoprolol 25 mg twice daily for now. She may need a higher dose. She was supposed to be on Coreg at home but I am not sure that she was taking it. Her BNP is 6800. Hopefully this is only related to her A-fib and diastolic dysfunction. I will repeat an echo. 2. Hypertension: This appears fairly well-controlled. We will adjust the medications as needed 3. Uncontrolled diabetes: Management per primary team. 4. Lymphedema: Severe, but by her account at baseline. She does have some cellulitic changes. Past Medical History: Past Medical History: Diagnosis Date Anxiety Asthma Deficiency of nutrient elements Depression Dry eye Fatigue Gastritis GERD (gastroesophageal reflux disease) Glaucoma Glaucoma Hyperlipidemia Hypertension Hypothyroid Hypothyroidism Incontinence Intestinal malabsorption Lymph edema Morbid obesity (HCC) Obstructive sleep apnea PMB (postmenopausal bleeding) Polycystic ovarian syndrome Psoriasis SOB (shortness of breath) on exertion Thyroglossal duct cyst Type 2 diabetes mellitus without complication (HCC) Urinary tract infection Uterine cancer (CMS/HCC) (HCC) Vitamin D deficiency 05/10/2017 Zinc deficiency 06/21/2018 Past Surgical History Past Surgical History: Procedure Laterality Date CATARACT EXTRACTION Bilateral CHOLECYSTECTOMY 01/29/2018 w/ LRYGB and Umbilical Hernia repair - [facility] DILATION AND CURETTAGE OF UTERUS 09/03/2020 with hysteroscopy GASTRIC BYPASS 01/29/2018 LRYGB w/ Lap Aggie and Umbilical Hernia repair, [facility] GASTRIC BYPASS HYSTERECTOMY 09/30/2020 [facility]/BSO; Dr. Cuauhtemoc Stubbs MOUTH SURGERY gum removal to expose wisdom teeth THYROGLOSSAL DUCT EXCISION [facility]- Dr. Vin Keating THYROIDECTOMY UMBILICAL HERNIA REPAIR 01/29/2018 w/ LRYGB and Lap Aggie - [facility] UPPER GASTROINTESTINAL ENDOSCOPY 03/20/2017 pre op, [facility] WISDOM TOOTH EXTRACTION [facility] Family History Family History Problem Relation Name Age of Onset Stroke Father Obesity Mother dementia Diabetes Mother dementia High Blood Pressure Mother dementia Heart disease Mother dementia Stroke Paternal Grandfather High Blood Pressure Father Diabetes Father Diabetes Paternal Grandfather Heart attack Paternal Grandmother Colon cancer Neg Hx High Blood Pressure Brother Cancer Father bladder Obesity Father Social History Social History Tobacco Use Smoking status: Never Smokeless tobacco: Never Substance Use Topics Alcohol use: No Drug use: No Medications: apixaban, 5 mg, Oral, BID atorvastatin, 40 mg, Oral, Daily brimonidine, 1 drop, Both Eyes, TID cefTRIAXone, 1,000 mg, IntraVENous, q24h insulin glargine, 24 Units, SubCUTAneous, Nightly insulin lispro, 0-18 Units, SubCUTAneous, TID WC And insulin lispro, 0-18 Units, SubCUTAneous, Nightly insulin lispro, 8 Units, SubCUTAneous, TID WC levothyroxine, 175 mcg, Oral, qAM AC metoprolol tartrate, 25 mg, Oral, BID timolol, 1 drop, Both Eyes, BID triamcinolone, , Topical, Once Infusion Medications: dextrose, 200 mL/hr dextrose, 200 mL/hr dextrose 5 % and sodium chloride 0.45 %, 250 mL/hr sodium chloride, 75 mL/hr, Last Rate: 75 mL/hr (11/02/24 0648) Allergies: Reviewed Physical Examination: Vitals: 11/02/24 0525 11/02/24 0751 11/02/24 0800 11/02/24 0849 BP: 129/80 (!) 134/92 (!) 139/100 101/75 BP Location: Left arm Patient Position: Sitting Pulse: 97 99 108 93 Resp: 16 14 14 Temp: TempSrc: SpO2: 99% 98% 98% Weight: Height: Intake/Output Summary (Last 24 hours) at 11/02/2024 1014 Last data filed at 11/01/20247 Gross per 24 hour Intake 50 ml Output -- Net 50 ml Wt Readings from Last 3 Encounters: 11/01/24 236 lb (107 kg) 03/26/24 255 lb 4.8 oz (116 kg) 03/14/24 255 lb (116 kg) Constitutional: Appears poorly kept/disheveled and looks stated age; in NAD Psychiatric: A &O x3 Mood is pleasant; Affect is appropriate Musculoskeletal: Normocephalic; no joint swelling; gait not tested; 5/5 muscle strength bilaterally in upper and lower extremities; no clubbing or cyanosis HEENT: Pupils are equal and round; Conjunctiva are not injected; Sclera are non-icteric; Airway and Nares are patent; Ears without external abnormalities. Mucosa is pink; Dentition is poor Neck: Supple; No JVD or Bruits; No thyromegaly; No lymphadenopathy Respiratory: Lungs are clear with no rales or wheezes. Respiratory effort is normal and symmetrical bilaterally; Good air movement bilaterally Heart: IRRR; Nl S1 and diminished S2 2/6 aortic stenosis murmur. No crg Abdomen: NABS soft, non-tender, non-distended; no organomegaly; no obvious masses Extremities/Skin: 2-3+ LE edema; Skin warm to touch and well perfused; skin discoloration is present Neuro: sensation and motor function are grossly normal. Cranial Nerves are grossly intact Laboratory Tests: Recent Labs 11/01/24180811/01/248 11/02/24 0045 11/02/24 0406 NA 128* 134* 133* 133* K 4.8 3.7 4.1 4.5 CL 95* 102 100 102 CO2 11* 17* 20* 19* BUN 30* 31* 31* 31* CREATININE 1.62* 1.43* 1.38* 1.26* EGFR 34.3* 39.8* 41.5* 46.3* No results for input(s): CKTOTAL, CKMB, CKMBINDEX, TROPONINI in the last 72 hours. Recent Labs 11/01/241808 BNP 6,801* Recent Labs 11/01/24 18011/02/24 0406 WBC 10.1 9.5 HGB 14.2 13.6 12.5 HCT 39.5 36.2 MCV 84.2 83.6 PLT 191 169 Lab Results Component Value Date HGBA1C 12.9 (H) 11/02/2024 Lab Results Component Value Date TSH 3.03 11/02/2024 Lab Results Component Value Date CHOL 142 04/29/2024 CHOL 151 02/18/2024 CHOL 149 04/06/2021 Lab Results Component Value Date HDL 44 04/29/2024 HDL 49 02/18/2024 HDL 50 06/22/2021 HDL 50 06/22/2021 Lab Results Component Value Date LDLCALC 71 04/29/2024 LDLCALC 76 02/18/2024 LDLCALC 77 06/22/2021 Lab Results Component Value Date TRIG 137 04/29/2024 TRIG 129 02/18/2024 TRIG 414 06/22/2021 Lab Results Component Value Date FERRITIN 77 03/04/2020 Reports reviewed: Last Echo 03/14/24 TRANSTHORACIC ECHOCARDIOGRAM (TTE) COMPLETE (CONTRAST/BUBBLE/3D PRN) 03/14/2024 4:26 PM (Final) Interpretation Summary Left Ventricle: Left ventricle is smaller than normal. Moderately increased wall thickness. Normal left ventricular systolic function. EF by 2D Simpsons Biplane is 68%. Global longitudinal strain is -17.1%. Normal wall motion. Right Ventricle: Right ventricle size is normal. Normal systolic function. Aortic Valve: Not well visualized. Trileaflet. Moderately thickened cusps. Moderately calcified cusps. Moderate stenosis of the aortic valve. AV mean gradient is 25 mmHg. AV peak gradient is 56 mmHg. LVOT:AV VTI Index is 0.33. AV area by continuity VTI is 1.0 cm2. Aorta: Normal sized sinuses of Valsalva. Mildly dilated ascending aorta. Ao ascending diameter is 3.7 cm. Signed by: Jose Martin Garcia MD on 03/14/2024 4:26 PM Dominga Martinez MD DATE of SERVICE: 11/02/2024 T [facility] 11-02-2024 Emergency department Note Patient awake and alert, IV site intact in the right arm infusing heparin at 9.6units/kg/hr and NS at 75ml/hr. Patient's IV in the LAC removed no longer flushing. [facility] 11-02-2024 Emergency department Note Patient awake and alert, IV site intact in the right arm infusing heparin at 9.6units/kg/hr and NS at 75ml/hr. Patient's IV in the LAC removed no longer flushing. Pt to ultrasound Next APTT to be drawn at 1013am. All meds still being verified by pharmacy Dr. Darby has been notified of pt's HR of 130s then will drop to >100 after few seconds via secure chat Insulin drip and 0.45% sodium chloride infusions stopped per verbal order from MD. Awaiting BMP results for further orders from . Provider notified that blood sugar dropped over 100, per order. Awaiting orders to continue protocol or not. POCT blood sugar 503 Pt assisted to toilet with wheelchair, stood well on own. Urine sample obtained. RN noted 2 small pressure injuries to buttock with redness surrounded. Pt states she is incontinent and wears briefs at home. Lab called with blood glucose 617, same reported to Dr. Vu and Dr. Dove via secure chat Emergency Department Encounter [facility] EMERGENCY DEPT Patient: Dameon Potter : 1955 Date of Evaluation: 11/01/2024 ED Provider: Oscar Vargas PA-C I saw the patient as the Clinician in Triage and performed a brief history and physical exam, established acuity, and ordered appropriate tests to develop basic plan of care. I wore appropriate PPE for the entirety of this encounter. Brief HPI: In brief, Dameon Potter is a 69 y.o. with a history of type 2 diabetes, lymphedema, hypothyroidism, hypertension, that presents for multiple complaints. According the patient, she has not taken her insulin since June and when questioned why, she states she felt she can modify her diet and did not need it. She has had some progressive weakness over the last several weeks to month or so and worsening leg swelling bilaterally but primarily to the right leg. She says she has a history of lymphedema and has been more weak in the right leg because of the heaviness and has been difficult for her to get around because of it and she will have to lift her right leg up with her hand to take a step. She states she is going the bathroom more frequently but no dysuria. No headache, neck pain or stiffness, cough or congestion. She is not having any chest pain or shortness of breath. Focused Physical exam: General: Patient does have a large body habitus and is sitting comfortably in chair no acute distress. Cardiac: Tachycardic with no murmurs gallops or rubs. Patient does have very large lower extremities bilaterally. Respiratory: Does have some crackles to the lower lobe bases but no sign respiratory distress Abdomen: Soft and nondistended. No tenderness Plan/MDM: Patient is nontoxic appearing on my exam she is awake alert and oriented and not confused. No will obtain infectious workup along with DKA as oimym-sy-jaae glucose was over 450. Please see subsequent provider note for further details and disposition (Comment: Please note this report has been produced using speech recognition software and may contain errors related to that system including errors in grammar, punctuation, and spelling as well as words and phrases that may be inappropriate. If there are any questions or concerns please feel free to contact the dictating provider for clarification) Oscar Vargas PA-C Acute Care [facility] Oscar Vargas PA-C 11/01/24 1736 Pt arrived for hyperglycemia, confusion and lightheadedness for past couple of days. documented in this encounter [facility] 11-02-2024 Emergency department Note Pt to ultrasound [facility] 11-02-2024 Emergency department Note Next APTT to be drawn at 1013am. [facility] 11-02-2024 Emergency department Note All meds still being verified by pharmacy [facility] 11-02-[address] Darby has been notified of pt's HR of 130s then will drop to >100 after few seconds via secure chat [facility] 11-02-2024 History and physical note Attending History and Physical Admit Date: 11/01/2024 PCP: Christy Rizzo MD CHIEF COMPLAINT: weakness Reason for Admission: SAÚL, Hyperglycemia, UTI History Obtained From: patient HISTORY OF PRESENT ILLNESS: Dameon is a 69 y.o. female with past medical history below who presents with chief complaint listed above. Patient states that over the last few days she has been feeling crummy Patient states she feels like she has been weaker than normal the past few days and has increased frequency of urination. Patient is a type 2 diabetic and took herself off her insulin in June of 2024 because she felt she could treat it with diet and exercise. Upon arrival to the ED patient's blood glucose was elevated to 617. Patient was breifly placed on an insulin drip with an improvement in blood sugar to 274 on insulin drip. Insulin drip was then stopped and patient transitioned to subcutaneous insulin. Also of note patient's BUN elevated at 30 and 31, Creatinine elevated to 1.62 and 1.43. Troponins have been elevated at 122, 127, and 128. Probnp elevated at 6801. Urine shows moderate bacteria and 500 leukocyte esterase. Patient currently denies any chest tightness, nausea, abdominal pain, vomiting, diarrhea, lightheadedness, or confusion. Patient's current complaints consist of weakness, increased frequency of urination, leg edema, and elevated stress. Will admit for further evaluation and management. Past Medical History: Past Medical History: Diagnosis Date Anxiety Asthma Deficiency of nutrient elements Depression Dry eye Fatigue Gastritis GERD (gastroesophageal reflux disease) Glaucoma Glaucoma Hyperlipidemia Hypertension Hypothyroid Hypothyroidism Incontinence Intestinal malabsorption Lymph edema Morbid obesity (HCC) Obstructive sleep apnea PMB (postmenopausal bleeding) Polycystic ovarian syndrome Psoriasis SOB (shortness of breath) on exertion Thyroglossal duct cyst Type 2 diabetes mellitus without complication (CMS/HCC) (HCC) Urinary tract infection Uterine cancer (CMS/HCC) ([facility]) Vitamin D deficiency 05/10/2017 Zinc deficiency 06/21/2018 Past Surgical History: Past Surgical History: Procedure Laterality Date CATARACT EXTRACTION Bilateral CHOLECYSTECTOMY 01/29/2018 w/ LRYGB and Umbilical Hernia repair - [facility] DILATION AND CURETTAGE OF UTERUS 09/03/2020 with hysteroscopy GASTRIC BYPASS 01/29/2018 LRYGB w/ Lap Aggie and Umbilical Hernia repair, [facility]akis GASTRIC BYPASS HYSTERECTOMY 09/30/2020 [facility]/BSO; Dr. Cuauhtemoc Stubbs MOUTH SURGERY gum removal to expose wisdom teeth THYROGLOSSAL DUCT EXCISION 2000 [facility]- Dr. Vin Keating THYROIDECTOMY UMBILICAL HERNIA REPAIR 01/29/2018 w/ LRYGB and Lap Aggie - [facility]akis UPPER GASTROINTESTINAL ENDOSCOPY 03/20/2017 pre op, Deepali WISDOM TOOTH EXTRACTION 2013 [facility] Social History: Social History Socioeconomic History Marital status: Single Spouse name: Not on file Number of children: Not on file Years of education: Not on file Highest education level: Not on file Occupational History Not on file Tobacco Use Smoking status: Never Smokeless tobacco: Never Substance and Sexual Activity Alcohol use: No Drug use: No Sexual activity: Not on file Other Topics Concern Not on file Social History Narrative Not on file Social Drivers of Health Financial Resource Strain: Not on file Food Insecurity: Not on file Transportation Needs: Not on file Physical Activity: Not on file Stress: Not on file Social Connections: Not on file Intimate Partner Violence: Not on file Housing Stability: Not on file Family History: Family History Problem Relation Name Age of Onset Stroke Father Obesity Mother dementia Diabetes Mother dementia High Blood Pressure Mother dementia Heart disease Mother dementia Stroke Paternal Grandfather High Blood Pressure Father Diabetes Father Diabetes Paternal Grandfather Heart attack Paternal Grandmother Colon cancer Neg Hx High Blood Pressure Brother Cancer Father bladder Obesity Father Medications Prior to Admission: Current Facility-Administered Medications: dextrose 10 % infusion, 200 mL/hr, IntraVENous, Continuous PRN, Jarrett Dove MD dextrose 5 % and sodium chloride 0.45 % infusion, 250 mL/hr, IntraVENous, Continuous PRN, Jarrett Dove MD lactated Ringer's infusion, 500 mL/hr, IntraVENous, Continuous, Last Rate: 500 mL/hr at 11/02/24 0145, 500 mL/hr at 11/02/24 0145 AND dextrose 5 % and sodium chloride 0.45 % infusion, 150 mL/hr, IntraVENous, Continuous PRN AND dextrose 5 % and sodium chloride 0.45 % infusion, 250 mL/hr, IntraVENous, Continuous PRN, Jarrett Dove MD dextrose 5 % infusion, 100 mL/hr, IntraVENous, PRN, Jarrett Dove MD dextrose 50 % solution 12.5 g, 12.5 g, IntraVENous, PRN, Jarrett Dove MD dextrose 50 % solution 12.5 g, 12.5 g, IntraVENous, PRN, Jarrett Dove MD glucagon (human recombinant) injection 1 mg, 1 mg, IntraMUSCular, PRN, Jarrett Dove MD glucose oral gel 15 g, 15 g, Oral, PRN, Jarrett Dove MD insulin NPH (Isophane) (HumuLIN N,NovoLIN N) injection 16 Units, 0.15 Units/kg, SubCUTAneous, q12h, Jarrett Dove MD, 16 Units at 11/01/242005 insulin regular 100 units in 100 mL NS (Myxredlin) infusion (premix), 1-50 Units/hr, IntraVENous, Continuous, Jarrett Dove MD, Stopped at 11/01/242222 nitroglycerin (Nitrostat) SL tablet 0.4 mg, 0.4 mg, SubLINGual, q5 min PRN, Jeremiah Coffman NP triamcinolone (Kenalog) 0.1 % cream, , Topical, Once, Jerome Perdomo MD Current Outpatient Medications: albuterol 108 (90 Base) MCG/ACT inhaler, Inhale 2 puffs every 6 hours as needed., Disp: , Rfl: atorvastatin (Lipitor) 40 MG tablet, Take by mouth daily., Disp: , Rfl: BD Insulin Syringe U/F 30G X 1/2 0.5 ML misc, 2 times daily with insulin, Disp: 200 each, Rfl: 3 brimonidine (AlphaGAN P) 0.1 % ophthalmic solution, Administer 1 drop into both eyes in the morning and 1 drop at noon and 1 drop in the evening., Disp: , Rfl: carvedilol (Coreg) 12.5 MG tablet, Take 12.5 mg by mouth in the morning and 12.5 mg in the evening. Take with meals., Disp: , Rfl: cholecalciferol (Vitamin D-3) 50 MCG (2000 UT) tablet, Take 2,000 Units by mouth in the morning., Disp: , Rfl: citalopram (CeleXA) 20 MG tablet, Take by mouth Every 24 hours., Disp: , Rfl: Continuous Glucose Sensor (FreeStyle Satya 3 Sensor) [facility], 1 Device every 14 (fourteen) days. (Patient not taking: Reported on 03/26/2024), Disp: 7 each, Rfl: 3 cyanocobalamin (Vitamin B-12) 1000 MCG tablet, Take 1,000 mcg by mouth 1 (one) time per week., Disp: , Rfl: EPINEPHRINE HCL, ANAPHYLAXIS, IM, Inject into the shoulder, thigh, or buttocks., Disp: , Rfl: fluconazole (Diflucan) 200 MG tablet, Take 1 tablet by mouth daily. PRN yeast infections, Disp: , Rfl: FREESTYLE LITE test strip, 1 each by Other route 4 times daily. As directed, Disp: 400 each, Rfl: 3 glucose 4 g chewable tablet, Chew 16 g if needed for low blood sugar., Disp: , Rfl: hydrocortisone (West-Dmitri) 0.2 % cream, Apply topically every 12 hours., Disp: , Rfl: insulin glargine (Lantus SoloStar) 100 UNIT/ML pen, Inject 16 Units under the skin Nightly., Disp: 15 mL, Rfl: 3 insulin lispro (HumaLOG) 100 UNIT/ML pen injection, Inject 16 Units under the skin daily with supper., Disp: 14.4 mL, Rfl: 3 insulin pen needle 32G x 4 mm misc, Use as instructed 2 times daily, Disp: 200 each, Rfl: 3 levothyroxine (Synthroid, Levoxyl) 175 MCG tablet, Take 1 tablet (175 mcg) by mouth every morning (before breakfast)., Disp: 90 tablet, Rfl: 3 loperamide (Imodium) 2 MG capsule, Take 2 mg by mouth as needed for diarrhea., Disp: , Rfl: mirabegron ER (Myrbetriq) 50 MG 24 hr tablet, Every 24 hours. PRN, Disp: , Rfl: multivitamin, Pediatric, (Flintstones Gummies) chewable tablet, Chew 2 tablets. With iron, Disp: , Rfl: olmesartan (BENIcar) 40 MG tablet, Take 1 tablet (40 mg) by mouth daily., Disp: 90 tablet, Rfl: 3 PROTEIN PO, Take by mouth., Disp: , Rfl: sulfamethoxazole-trimethoprim (Bactrim DS) 800-160 MG tablet, Take 1 tablet by mouth in the morning and 1 tablet in the evening., Disp: , Rfl: timolol (Timoptic) 0.5 % ophthalmic solution, Administer 1 drop into both eyes in the morning and 1 drop in the evening., Disp: , Rfl: Allergies: Allergies Allergen Reactions Bimatoprost Other Blurred vision Doxycycline Hives Erythromycin Hives Levaquin [Levofloxacin] Hives Macrobid [Nitrofurantoin] Hives Penicillins Hives Levofloxacin In D5w Swelling oral Macrolides And Ketolides Hives 1980 Molds & Smuts Itching Mold allergy Nitrofurantoin Monohyd Macro Itching Other Itching REVIEW OF SYSTEMS: A focused review of systems was performed and is negative except as stated in above HPI. Vitals: BP 116/81 (BP Location: Left arm, Patient Position: Sitting) Pulse (!) 120 Temp 36.1 C (97 F) (Temporal) Resp 23 Ht 5' 6 (1.676 m) Wt 236 lb (107 kg) SpO2 99% BMI 38.09 kg/m BMI Classification: Obese (BMI 30.0-39.9) Pulse Ox: SpO2 Av.6 % Min: 96 % Max: 100 % Supplemental O2: PHYSICAL EXAM: Physical Exam Constitutional: General: She is not in acute distress. Appearance: She is obese. She is not ill-appearing, toxic-appearing or diaphoretic. HENT: Head: Normocephalic and atraumatic. Nose: Nose normal. No congestion or rhinorrhea. Mouth/Throat: Pharynx: No oropharyngeal exudate or posterior oropharyngeal erythema. Eyes: General: Right eye: No discharge. Left eye: No discharge. Cardiovascular: Rate and Rhythm: Tachycardia present. Rhythm irregular. Heart sounds: No friction rub. Pulmonary: Effort: Pulmonary effort is normal. Breath sounds: Normal breath sounds. Abdominal: General: Abdomen is flat. Bowel sounds are normal. Palpations: Abdomen is soft. Musculoskeletal: General: Swelling present. Normal range of motion. Cervical back: Normal range of motion. No rigidity or tenderness. Right lower leg: Edema present. Left lower leg: Edema present. Skin: General: Skin is warm and dry. Neurological: General: No focal deficit present. Mental Status: She is alert and oriented to person, place, and time. Mental status is at baseline. Psychiatric: Mood and Affect: Mood normal. Behavior: Behavior normal. Thought Content: Thought content normal. Judgment: Judgment normal. DATA: CBC: Recent Labs 11/01/24 1809 WBC 10.1 RBC 4.69 HGB 14.2 13.6 HCT 39.5 MCV 84.2 RDW 13.4 PLT 191 BMP: Recent Labs 11/01/24 1809 11/01/24 2208 11/02/24 0045 NA 128* 134* 133* K 4.8 3.7 4.1 CL 95* 102 100 CO2 11* 17* 20* BUN 30* 31* 31* CREATININE 1.62* 1.43* 1.38* GLUCOSE 617* 276* 255* CALCIUM 9.5 8.9 8.9 ANIONGAP 22* 15* 13 LIVER PROFILE: Recent Labs 11/01/24 1809 AST 20 ALT 9 BILITOT 1.3* ALKPHOS 99 PROT 7.3 PT/INR: No results for input(s): PROTIME, INR in the last 72 hours. CARDIAC ENZYMES: No results for input(s): TROPONINI in the last 72 hours. Procalcitonin: No results found for: PROCAL Urine Culture: Results for orders placed or performed in visit on 10/21/21 Urine culture Collection Time: 10/21/21 2:42 PM Specimen: Urine Result Value Ref Range Urine Culture Enterobacter cloacae complex (A) Urine Culture 50,000-90,000 CFU/ml For serious infections outside of the urinary tract, third generation cephalosporins may not be effective, even if test results indicate the organism is sensitive. Susceptibility testing performed only upon request for cultures with multiple types of microorganisms below 100,000 cfu/ml. Urine Culture Escherichia coli (A) Urine Culture 50,000-90,000 CFU/ml Susceptibility testing performed only upon request for cultures with multiple types of microorganisms below 100,000 cfu/ml. COVID-19 PCR: No results for input(s): COVID19 in the last 72 hours. I reviewed: [x] laboratory results [x] radiographic results At the time of today's encounter. Pt was advised of the results. Data: (CAT1) Reviewed 3 or more notes from different specialty or health system (each=1). (CAT1) Reviewed 3 or more labs/studies ordered by another provider not previously counted (each=1, panels count as 1). (CAT1) Ordered 3 or more new labs and/or studies (each=1, panels count as 1). (LOW: 2x CAT1 or independent historian MOD: 3x CAT1 or 1x CAT3 EXTENSIVE: 3x CAT1 and 1x CAT3) Assessment Discussed management with the ED provider and agree with hospitalization. Acute, acute on chronic, unstable/uncontrolled chronic problems/diagnoses: Hyperglycemia SAÚL UTI New onset atrial fibrillation Stable chronic problems affecting care, new non-acute diagnoses: Lymphedema Type 2 diabetes Hypothyroidism Hypertension Hyperlipidemia Depression Plan As a result of the above findings & factors, the following mgmt was pursued: - High dose correction sliding scale - Hypoglycemic protocol PRN - Blood glucose checks AC, HS, and PRN - IV rocephin for UTI - IV fluids for SAÚL - Cardiology consult - IV heparin for new onset atrial fibrillation - Repeat EKG in AM - am labs, replace lytes prn - PT/OT/CM/SW - delirium precautions: increase activity - DVT prophylaxis: enoxaparin and encourage ambulation Complexity: Chronic illness with severe exacerbation, progression, or side effect of tx (HIGH). Risk: Admission to hospital-level care was considered or occurred (HIGH). Advance Directive: No Order Anticipated Discharge - Date - 11/05/24 - Location - Home - Pending the following - pending response to treatment Total time spent (which include face to face and non face to face encounters) : 75 minutes. Extended Emergency Contact Information Primary Emergency Contact: Roe Melendrez Mobile Relation: Mela Secondary Emergency Contact: TariqJose [place] Mobile Relation: Sibling [employer] Dameon Potter : 1955 Primary Care Physician: Christy Rizzo MD The patient and/or family/surrogate voluntarily agreed to participate in ACP services. Patient s cognitive capacity: Alert and Oriented x 3 Code Status: [X] [FULL CODE - Continue all advanced life support: CPR,intubation,invasive procedures] [_] [DNR-CCA - DO NOT do CPR, intubation] [_] [DNR-FREEZER UNLOADER - Comfort care only] [_] DNR form [was/was not] signed Summary of discussion: The patient HCPOA is the following: Nieves Snow. The patient DPOA is the following: Nieves Snow. [Condition that instigated the ACP on this DOS, relevant PMH, functional status, goals of care, and whom this was discussed with including names and relationship to the patient, and any relevant advance care documentation discussion] I answered all the patient/family questions that I could within the range and scope of the current medical situation. We discussed the medical conditions, risks, benefits, outcomes, and goals of care at this time for the patient's medical issues at hand in the face of the patient's chronic issues and current presentation. Total time spent: 5 minutes were spent discussing the patient's resuscitation status, advance care planning, and end of life care, with patient and/or family/surrogate. Jeremiah Coffman NP Division of Hospitalist Medicine Cosigned by Wilner Kingston MD at 11/02/2024 3:37 AM EDT Associated attestation - Wilner Kingston MD - 11/02/2024 3:37 AM EDT I personally saw the patient and made/approved the management plan and take responsibility for the patient management. History: A 69 o F with Pmhx of HTN, DM, Obesity, hypothyroidism, RADHA who got admitted for further eval of Afib, SAÚL, UTI, and Hyperglycemia. Exam: Heart: irregular, no added sounds, VSS, in NAD. MDM: - TELE - CBC, BMP, Mg, Phos, Troponin, BNP, TSH, INR. - Utox - Serial ECGs and troponins to rule out ACS - Start heparin drip if plan on cardioversion - Metoprolol 25mg BID - NPO for CORNEL with cardioversion - Cards Consult - Ceftriaxone - Ucx - Bladder scan - Consider Nephro consult if the sCr did not improve - Insulin SS - Lantus 16units (home dose that the pt wasn't taking), will be adjusted while admitted as needed I independently interpreted the following studies: Labs CTH CXR EKG The documentation below has been reviewed and edited as needed to reflect the findings of my evaluation. A full chart review was performed. Wilner Kingston MD [facility] [employer] Work Phone: 11-02-2024 Note [facility] 11-02-2024 History and physical note Attending History and Physical Admit Date: 11/01/2024 PCP: Christy Rizzo MD CHIEF COMPLAINT: weakness Reason for Admission: SAÚL, Hyperglycemia, UTI History Obtained From: patient HISTORY OF PRESENT ILLNESS: Dameon is a 69 y.o. female with past medical history below who presents with chief complaint listed above. Patient states that over the last few days she has been feeling crummy Patient states she feels like she has been weaker than normal the past few days and has increased frequency of urination. Patient is a type 2 diabetic and took herself off her insulin in June of 2024 because she felt she could treat it with diet and exercise. Upon arrival to the ED patient's blood glucose was elevated to 617. Patient was breifly placed on an insulin drip with an improvement in blood sugar to 274 on insulin drip. Insulin drip was then stopped and patient transitioned to subcutaneous insulin. Also of note patient's BUN elevated at 30 and 31, Creatinine elevated to 1.62 and 1.43. Troponins have been elevated at 122, 127, and 128. Probnp elevated at 6801. Urine shows moderate bacteria and 500 leukocyte esterase. Patient currently denies any chest tightness, nausea, abdominal pain, vomiting, diarrhea, lightheadedness, or confusion. Patient's current complaints consist of weakness, increased frequency of urination, leg edema, and elevated stress. Will admit for further evaluation and management. Past Medical History: Past Medical History: Diagnosis Date Anxiety Asthma Deficiency of nutrient elements Depression Dry eye Fatigue Gastritis GERD (gastroesophageal reflux disease) Glaucoma Glaucoma Hyperlipidemia Hypertension Hypothyroid Hypothyroidism Incontinence Intestinal malabsorption Lymph edema Morbid obesity (HCC) Obstructive sleep apnea PMB (postmenopausal bleeding) Polycystic ovarian syndrome Psoriasis SOB (shortness of breath) on exertion Thyroglossal duct cyst Type 2 diabetes mellitus without complication (CMS/HCC) (HCC) Urinary tract infection Uterine cancer (CMS/HCC) ([facility]) Vitamin D deficiency 05/10/2017 Zinc deficiency 06/21/2018 Past Surgical History: Past Surgical History: Procedure Laterality Date CATARACT EXTRACTION Bilateral CHOLECYSTECTOMY 01/29/2018 w/ LRYGB and Umbilical Hernia repair - [facility] DILATION AND CURETTAGE OF UTERUS 09/03/2020 with hysteroscopy GASTRIC BYPASS 01/29/2018 LRYGB w/ Lap Aggie and Umbilical Hernia repair, [facility]akis GASTRIC BYPASS HYSTERECTOMY 09/30/2020 [facility]/BSO; Dr. Cuauhtemoc Stubbs MOUTH SURGERY gum removal to expose wisdom teeth THYROGL[facility]AL DU[facility]ISION [facility] Dr[facility] Vin Keating THYROIDECTOMY UMBILICAL HERNIA REPAIR 01/29/2018 w/ LRYGB and Lap Aggie - [facility]akis UPPER GASTROINTESTINAL ENDOSCOPY 03/20/2017 pre op, [facility] WISDOM TOOTH EXTRACTION 2013 [facility] Social History: Social History Socioeconomic History Marital status: Single Spouse name: Not on file Number of children: Not on file Years of education: Not on file Highest education level: Not on file Occupational History Not on file Tobacco Use Smoking status: Never Smokeless tobacco: Never Substance and Sexual Activity Alcohol use: No Drug use: No Sexual activity: Not on file Other Topics Concern Not on file Social History Narrative Not on file Social Drivers of Health Financial Resource Strain: Not on file Food Insecurity: Not on file Transportation Needs: Not on file Physical Activity: Not on file Stress: Not on file Social Connections: Not on file Intimate Partner Violence: Not on file Housing Stability: Not on file Family History: Family History Problem Relation Name Age of Onset Stroke Father Obesity Mother dementia Diabetes Mother dementia High Blood Pressure Mother dementia Heart disease Mother dementia Stroke Paternal Grandfather High Blood Pressure Father Diabetes Father Diabetes Paternal Grandfather Heart attack Paternal Grandmother Colon cancer Neg Hx High Blood Pressure Brother Cancer Father bladder Obesity Father Medications Prior to Admission: Current Facility-Administered Medications: dextrose 10 % infusion, 200 mL/hr, IntraVENous, Continuous PRN, Jarrett Dove MD dextrose 5 % and sodium chloride 0.45 % infusion, 250 mL/hr, IntraVENous, Continuous PRN, Jarrett Dove MD lactated Ringer's infusion, 500 mL/hr, IntraVENous, Continuous, Last Rate: 500 mL/hr at 11/02/24 0145, 500 mL/hr at 11/02/24 0145 AND dextrose 5 % and sodium chloride 0.45 % infusion, 150 mL/hr, IntraVENous, Continuous PRN AND dextrose 5 % and sodium chloride 0.45 % infusion, 250 mL/hr, IntraVENous, Continuous PRN, Jarrett Dove MD dextrose 5 % infusion, 100 mL/hr, IntraVENous, PRN, Jarrett Dove MD dextrose 50 % solution 12.5 g, 12.5 g, IntraVENous, PRN, Jarrett Dove MD dextrose 50 % solution 12.5 g, 12.5 g, IntraVENous, PRN, Jarrett Dove MD glucagon (human recombinant) injection 1 mg, 1 mg, IntraMUSCular, PRN, Jarrett Dove MD glucose oral gel 15 g, 15 g, Oral, PRN, Jarrett Dove MD insulin NPH (Isophane) (HumuLIN N,NovoLIN N) injection 16 Units, 0.15 Units/kg, SubCUTAneous, q12h, Jarrett Dove MD, 16 Units at 11/01/242005 insulin regular 100 units in 100 mL NS (Myxredlin) infusion (premix), 1-50 Units/hr, IntraVENous, Continuous, Jarrett Dove MD, Stopped at 11/01/242222 nitroglycerin (Nitrostat) SL tablet 0.4 mg, 0.4 mg, SubLINGual, q5 min PRN, Jeremiah Coffman, KEITH triamcinolone (Kenalog) 0.1 % cream, , Topical, Once, Jerome Perdomo MD Current Outpatient Medications: albuterol 108 (90 Base) MCG/ACT inhaler, Inhale 2 puffs every 6 hours as needed., Disp: , Rfl: atorvastatin (Lipitor) 40 MG tablet, Take by mouth daily., Disp: , Rfl: BD Insulin Syringe U/F 30G X 1/2 0.5 ML misc, 2 times daily with insulin, Disp: 200 each, Rfl: 3 brimonidine (AlphaGAN P) 0.1 % ophthalmic solution, Administer 1 drop into both eyes in the morning and 1 drop at noon and 1 drop in the evening., Disp: , Rfl: carvedilol (Coreg) 12.5 MG tablet, Take 12.5 mg by mouth in the morning and 12.5 mg in the evening. Take with meals., Disp: , Rfl: cholecalciferol (Vitamin D-3) 50 MCG (1999 UT) tablet, Take 2,000 Units by mouth in the morning., Disp: , Rfl: citalopram (CeleXA) 20 MG tablet, Take by mouth Every 24 hours., Disp: , Rfl: Continuous Glucose Sensor (FreeStyle Satya 3 Sensor) [facility], 1 Device every 14 (fourteen) days. (Patient not taking: Reported on 03/26/2024), Disp: 7 each, Rfl: 3 cyanocobalamin (Vitamin B-12) 1000 MCG tablet, Take 1,000 mcg by mouth 1 (one) time per week., Disp: , Rfl: EPINEPHRINE HCL, ANAPHYLAXIS, IM, Inject into the shoulder, thigh, or buttocks., Disp: , Rfl: fluconazole (Diflucan) 200 MG tablet, Take 1 tablet by mouth daily. PRN yeast infections, Disp: , Rfl: FREESTYLE LITE test strip, 1 each by Other route 4 times daily. As directed, Disp: 400 each, Rfl: 3 glucose 4 g chewable tablet, Chew 16 g if needed for low blood sugar., Disp: , Rfl: hydrocortisone (West-Dmitri) 0.2 % cream, Apply topically every 12 hours., Disp: , Rfl: insulin glargine (Lantus SoloStar) 100 UNIT/ML pen, Inject 16 Units under the skin Nightly., Disp: 15 mL, Rfl: 3 insulin lispro (HumaLOG) 100 UNIT/ML pen injection, Inject 16 Units under the skin daily with supper., Disp: 14.4 mL, Rfl: 3 insulin pen needle 32G x 4 mm [facility], Use as instructed 2 times daily, Disp: 200 each, Rfl: 3 levothyroxine (Synthroid, Levoxyl) 175 MCG tablet, Take 1 tablet (175 mcg) by mouth every morning (before breakfast)., Disp: 90 tablet, Rfl: 3 loperamide (Imodium) 2 MG capsule, Take 2 mg by mouth as needed for diarrhea., Disp: , Rfl: mirabegron ER (Myrbetriq) 50 MG 24 hr tablet, Every 24 hours. PRN, Disp: , Rfl: multivitamin, Pediatric, (Flintstones Gummies) chewable tablet, Chew 2 tablets. With iron, Disp: , Rfl: olmesartan (BENIcar) 40 MG tablet, Take 1 tablet (40 mg) by mouth daily., Disp: 90 tablet, Rfl: 3 PROTEIN PO, Take by mouth., Disp: , Rfl: sulfamethoxazole-trimethoprim (Bactrim DS) 800-160 MG tablet, Take 1 tablet by mouth in the morning and 1 tablet in the evening., Disp: , Rfl: timolol (Timoptic) 0.5 % ophthalmic solution, Administer 1 drop into both eyes in the morning and 1 drop in the evening., Disp: , Rfl: Allergies: Allergies Allergen Reactions Bimatoprost Other Blurred vision Doxycycline Hives Erythromycin Hives Levaquin [Levofloxacin] Hives Macrobid [Nitrofurantoin] Hives Penicillins Hives Levofloxacin In D5w Swelling oral Macrolides And Ketolides Hives 1980 Molds & Smuts Itching Mold allergy Nitrofurantoin Monohyd Macro Itching Other Itching REVIEW OF SYSTEMS: A focused review of systems was performed and is negative except as stated in above HPI. Vitals: BP 116/81 (BP Location: Left arm, Patient Position: Sitting) Pulse (!) 120 Temp 36.1 C (97 F) (Temporal) Resp 23 Ht 5' 6 (1.676 m) Wt 236 lb (107 kg) SpO2 99% BMI 38.09 kg/m BMI Classification: Obese (BMI 30.0-39.9) Pulse Ox: SpO2 Av.6 % Min: 96 % Max: 100 % Supplemental O2: PHYSICAL EXAM: Physical Exam Constitutional: General: She is not in acute distress. Appearance: She is obese. She is not ill-appearing, toxic-appearing or diaphoretic. HENT: Head: Normocephalic and atraumatic. Nose: Nose normal. No congestion or rhinorrhea. Mouth/Throat: Pharynx: No oropharyngeal exudate or posterior oropharyngeal erythema. Eyes: General: Right eye: No discharge. Left eye: No discharge. Cardiovascular: Rate and Rhythm: Tachycardia present. Rhythm irregular. Heart sounds: No friction rub. Pulmonary: Effort: Pulmonary effort is normal. Breath sounds: Normal breath sounds. Abdominal: General: Abdomen is flat. Bowel sounds are normal. Palpations: Abdomen is soft. Musculoskeletal: General: Swelling present. Normal range of motion. Cervical back: Normal range of motion. No rigidity or tenderness. Right lower leg: Edema present. Left lower leg: Edema present. Skin: General: Skin is warm and dry. Neurological: General: No focal deficit present. Mental Status: She is alert and oriented to person, place, and time. Mental status is at baseline. Psychiatric: Mood and Affect: Mood normal. Behavior: Behavior normal. Thought Content: Thought content normal. Judgment: Judgment normal. DATA: CBC: Recent Labs 11/01/241808 WBC 10.1 RBC 4.69 HGB 14.2 13.6 HCT 39.5 MCV 84.2 RDW 13.4 PLT 191 BMP: Recent Labs 11/01/24 1809 11/01/24 2208 11/02/24 0045 NA 128* 134* 133* K 4.8 3.7 4.1 CL 95* 102 100 CO2 11* 17* 20* BUN 30* 31* 31* CREATININE 1.62* 1.43* 1.38* GLUCOSE 617* 276* 255* CALCIUM 9.5 8.9 8.9 ANIONGAP 22* 15* 13 LIVER PROFILE: Recent Labs 11/01/241808 AST 20 ALT 9 BILITOT 1.3* ALKPHOS 99 PROT 7.3 PT/INR: No results for input(s): PROTIME, INR in the last 72 hours. CARDIAC ENZYMES: No results for input(s): TROPONINI in the last 72 hours. Procalcitonin: No results found for: PROCAL Urine Culture: Results for orders placed or performed in visit on 10/21/21 Urine culture Collection Time: 10/21/21 2:42 PM Specimen: Urine Result Value Ref Range Urine Culture Enterobacter cloacae complex (A) Urine Culture 50,000-90,000 CFU/ml For serious infections outside of the urinary tract, third generation cephalosporins may not be effective, even if test results indicate the organism is sensitive. Susceptibility testing performed only upon request for cultures with multiple types of microorganisms below 100,000 cfu/ml. Urine Culture Escherichia coli (A) Urine Culture 50,000-90,000 CFU/ml Susceptibility testing performed only upon request for cultures with multiple types of microorganisms below 100,000 cfu/ml. COVID-19 PCR: No results for input(s): COVID19 in the last 72 hours. I reviewed: [x] laboratory results [x] radiographic results At the time of today's encounter. Pt was advised of the results. Data: (CAT1) Reviewed 3 or more notes from different specialty or health system (each=1). (CAT1) Reviewed 3 or more labs/studies ordered by another provider not previously counted (each=1, panels count as 1). (CAT1) Ordered 3 or more new labs and/or studies (each=1, panels count as 1). (LOW: 2x CAT1 or independent historian MOD: 3x CAT1 or 1x CAT3 EXTENSIVE: 3x CAT1 and 1x CAT3) Assessment Discussed management with the ED provider and agree with hospitalization. Acute, acute on chronic, unstable/uncontrolled chronic problems/diagnoses: Hyperglycemia SAÚL UTI New onset atrial fibrillation Stable chronic problems affecting care, new non-acute diagnoses: Lymphedema Type 2 diabetes Hypothyroidism Hypertension Hyperlipidemia Depression Plan As a result of the above findings & factors, the following mgmt was pursued: - High dose correction sliding scale - Hypoglycemic protocol PRN - Blood glucose checks AC, HS, and PRN - IV rocephin for UTI - IV fluids for SAÚL - Cardiology consult - IV heparin for new onset atrial fibrillation - Repeat EKG in AM - am labs, replace lytes prn - PT/OT/CM/SW - delirium precautions: increase activity - DVT prophylaxis: enoxaparin and encourage ambulation Complexity: Chronic illness with severe exacerbation, progression, or side effect of tx (HIGH). Risk: Admission to hospital-level care was considered or occurred (HIGH). Advance Directive: No Order Anticipated Discharge - Date - 11/05/24 - Location - Home - Pending the following - pending response to treatment Total time spent (which include face to face and non face to face encounters) : 75 minutes. Extended Emergency Contact Information Primary Emergency Contact: Roe Melendrez Mobile Relation: Mela Secondary Emergency Contact: Jose Potter [place] Mobile Relation: Sibling [employer] Dameon Potter : 1955 Primary Care Physician: Christy Rizzo MD The patient and/or family/surrogate voluntarily agreed to participate in ACP services. Patient s cognitive capacity: Alert and Oriented x 3 Code Status: [X] [FULL CODE - Continue all advanced life support: CPR,intubation,invasive procedures] [_] [DNR-CCA - DO NOT do CPR, intubation] [_] [DNR-FREEZER UNLOADER - Comfort care only] [_] DNR form [was/was not] signed Summary of discussion: The patient HCPOA is the following: Nieves Snow. The patient DPOA is the following: Nieves Snow. [Condition that instigated the ACP on this DOS, relevant PMH, functional status, goals of care, and whom this was discussed with including names and relationship to the patient, and any relevant advance care documentation discussion] I answered all the patient/family questions that I could within the range and scope of the current medical situation. We discussed the medical conditions, risks, benefits, outcomes, and goals of care at this time for the patient's medical issues at hand in the face of the patient's chronic issues and current presentation. Total time spent: 5 minutes were spent discussing the patient's resuscitation status, advance care planning, and end of life care, with patient and/or family/surrogate. Jeremiah Coffman NP Division of Hospitalist Medicine Cosigned by Wilner Kingston MD at 11/02/2024 3:37 AM EDT Associated attestation - Wilner Kingston MD - 11/02/2024 3:37 AM EDT I personally saw the patient and made/approved the management plan and take responsibility for the patient management. History: A 69 o F with Pmhx of HTN, DM, Obesity, hypothyroidism, RADHA who got admitted for further eval of Afib, SAÚL, UTI, and Hyperglycemia. Exam: Heart: irregular, no added sounds, VSS, in NAD. MDM: - TELE - CBC, BMP, Mg, Phos, Troponin, BNP, TSH, INR. - Utox - Serial ECGs and troponins to rule out ACS - Start heparin drip if plan on cardioversion - Metoprolol 25mg BID - NPO for CORNEL with cardioversion - Cards Consult - Ceftriaxone - Ucx - Bladder scan - Consider Nephro consult if the sCr did not improve - Insulin SS - Lantus 16units (home dose that the pt wasn't taking), will be adjusted while admitted as needed I independently interpreted the following studies: Labs CTH CXR EKG The documentation below has been reviewed and edited as needed to reflect the findings of my evaluation. A full chart review was performed. Wilner Kingston MD documented in this encounter [facility] 11-01-2024 Emergency department Note Insulin drip and 0.45% sodium chloride infusions stopped per verbal order from . Awaiting BMP results for further orders from . [facility] 11-01-2024 Emergency department Note Provider notified that blood sugar dropped over 100, per order. Awaiting orders to continue protocol or not. [facility] 11-01-2024 Emergency department Note POCT blood sugar 503 [facility] 11-01-2024 Emergency department Note Pt assisted to toilet with wheelchair, stood well on own. Urine sample obtained. RN noted 2 small pressure injuries to buttock with redness surrounded. Pt states she is incontinent and wears briefs at home. [facility] 11-01-2024 Emergency department Note Lab called with blood glucose 617, same reported to Dr. Vu and Dr. Dove via secure chat [facility] 11-01-2024 Emergency department Triage note Pt arrived for hyperglycemia, confusion and lightheadedness for past couple of days. [facility] 11-01-2024 Physician Emergency department Note Emergency Department Encounter [facility] EMERGENCY DEPT Patient: Dameon Potter : 1955 Date of Evaluation: 11/01/2024 ED Provider: Oscar Vargas PA-C I saw the patient as the Clinician in Triage and performed a brief history and physical exam, established acuity, and ordered appropriate tests to develop basic plan of care. I wore appropriate PPE for the entirety of this encounter. Brief HPI: In brief, Dameon Potter is a 69 y.o. with a history of type 2 diabetes, lymphedema, hypothyroidism, hypertension, that presents for multiple complaints. According the patient, she has not taken her insulin since June and when questioned why, she states she felt she can modify her diet and did not need it. She has had some progressive weakness over the last several weeks to month or so and worsening leg swelling bilaterally but primarily to the right leg. She says she has a history of lymphedema and has been more weak in the right leg because of the heaviness and has been difficult for her to get around because of it and she will have to lift her right leg up with her hand to take a step. She states she is going the bathroom more frequently but no dysuria. No headache, neck pain or stiffness, cough or congestion. She is not having any chest pain or shortness of breath. Focused Physical exam: General: Patient does have a large body habitus and is sitting comfortably in chair no acute distress. Cardiac: Tachycardic with no murmurs gallops or rubs. Patient does have very large lower extremities bilaterally. Respiratory: Does have some crackles to the lower lobe bases but no sign respiratory distress Abdomen: Soft and nondistended. No tenderness Plan/MDM: Patient is nontoxic appearing on my exam she is awake alert and oriented and not confused. No will obtain infectious workup along with DKA as rleso-la-[id number] glucose was over 450. Please see subsequent provider note for further details and disposition (Comment: Please note this report has been produced using speech recognition software and may contain errors related to that system including errors in grammar, punctuation, and spelling as well as words and phrases that may be inappropriate. If there are any questions or concerns please feel free to contact the dictating provider for clarification) Oscar Vargas PA-C [employer] Oscar Vargas PA-C 11/01/24 1736 [place] Work Phone: 11-01-2024 Telephone encounter Note S: pt calling [facility] with BG problem B: today A: pt has not been seen in office since 03/26/24. Fell in April and has not been taking insulin or checking BG since then, does not remember when the last time was. Pt states she feels out of it and not much energy. Does live alone but has a friend to come check on her. Pt states she is on palliative care, they come to see her once per month. Does not know their name. Call back to pt at 1340 after pt was going to get a home glucometer with friend. BG check was 475 and 563, just a few minutes ago. Does have Lantus at home, does not believe she has Humalog. Does feel slightly weak, slightly confused. Denies vomiting/diarrhea. Denies recent illness/fever. R: RN spoke with Dr. Robison who advised for pt to be evaluated in ER. RN relayed this information to pt and states their friend that is with them with take them to [facility] ER. Reason for Disposition Blood glucose > 500 mg/dL (27.8 mmol/L) Protocols used: Diabetes - High Blood [facility]wsre-ACYUL[facility] 05-07-2024 History of Present illness Narrative [facility] Nurse Visit Note Dameon Potter AGE: 69 y.o. GENDER: female : 1955 EPISODE DATE: 05/07/24 Arrival Information: Patient Arrived: Walker Transfer Assistance: None Accompanied by: self Any changes in medical history since last visit: No Added or removed any Medications: No Any new allergies: No Any falls since last visit: No Any hospitalizations or surgeries since last visit: No Assessment: Vitals: 05/07/24 1341 BP: (!) 183/111 Pulse: 73 Resp: 16 Temp: 36.6 C (97.9 F) Treatment: Wound: no open wounds, lymphedema Patient was seen for a nurse visit to have Profores changed. Dressing was removed. Wound was cleansed with soap and water, lotion was applied periwound, no dressing were applied to wound, unna boots with 4 layer compression wrap was applied per provider's orders. To be completed if only a dressing was applied: Discharge Information: Patient was discharged in stable condition. Ambulatory Status: Walker Discharge Destination: home Transportation: Private Auto Accompanied by: patient Schedule Follow up Appointment: no No orders of the defined types were placed in this encounter. documented in this encounter [facility] 05-02-2024 Note Date of Procedure 05/02/2024. Nitroglycerin Separator Operator Information Imaging Center Manager: preston. Start time: 3:51 PM. Stop time: 3:51 PM. Quality Right Eye Borderline. Left Eye Borderline. NFL Interpretation Right Eye Superior loss, Inferior loss. Left Eye Normal. Ganglion Cell Layer Thickness Right Eye Normal. Left Eye Temporal loss. Interval Change Right Eye Stable. Left Eye Stable. [facility] 05-02-2024 Note Date of Procedure 05/02/2024. Nitroglycerin Separator Operator Information Imaging Center Manager: preston. Start time: 3:43 PM. Stop time: 3:51 PM. Interpretation Right Eye Abnormal foveal contour. Findings include Intraretinal fluid. Left Eye Abnormal foveal contour. Findings include Intraretinal fluid. Interval Change Right Eye Worse. Left Eye Stable. [facility] 05-02-2024 Note HNO ID: [id number] Author: MOSES ACEVEDO MD Service: ? Author Type: Physician Type: Progress Notes Filed: 05/02/2024 16:40 Note Text: Primary care physician visit 03/14/2024 reviewed. (H40.7817) Primary open angle glaucoma of both eyes, mild stage (primary encounter diagnosis) Comment: Discussed stable intraocular pressure both eyes. Plan: OCT nerve both eyes done today and reviewed in office. Reviewed changes both eyes = K vs. Retina. Continue Timolol 0.5% both eyes twice a day Continue Brimonidine 0.1% both eyes three times a day. Renewed @ last visit. Last visit: Pena visual field (HVF) 24-2 both eyes done today and reviewed in office. (E11.0073) 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 and macular edema, without long-term current use of insulin (HCC) Comment: Discussed retinopathy both eyes with diabetic macular edema both eyes Plan: Continue blood sugar control and monitor with primary care physician. Per Dr. Faulkner 11/13/2023: #. Severe NPDR, both eyes - extrafoveal Diabetic macular edema both eyes, stable OU #. Pseudophakia, both eyes - stable both eyes #. Primary open angle glaucoma (POAG) both eyes - 18 both eyes on drops #. 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 Plan: Recommend frequent lubrication both eyes. Limitations discussed. (H04.123) Dry eye syndrome of bilateral lacrimal glands Comment: Discussed findings on exam. Plan: Recommend continue Artificial tears both eyes four times a day and as needed. Consider preservative free Artificial tears. (H52.7) Refractive error Comment: Discussed change in Manifest refraction. Plan: Manifest refraction updated and dispensed. 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 Plan: Monitor Follow up with Dr. Faulkner as planned; 6 mos IOP check and Pena visual field (HVF) 24-2 both eyes. I have confirmed and edited as necessary the relevant ophthalmic history, ROS, and the neuro exam findings as obtained by others. I have seen and examined this patient. I have discussed the case and the management of this patient's care with the Resident/Fellow, if applicable. I also have reviewed and agree with the assessment and plan as stated above and agree with all of its relevant components. Moses Acevedo MD May 02, 2024 4:26 PM [facility] 05-02-2024 History of Present illness Narrative Primary care physician visit 03/14/2024 reviewed. (H40.4311) Primary open angle glaucoma of both eyes, mild stage (primary encounter diagnosis) Comment: Discussed stable intraocular pressure both eyes. Plan: OCT nerve both eyes done today and reviewed in office. Reviewed changes both eyes = K vs. Retina. Continue Timolol 0.5% both eyes twice a day Continue Brimonidine 0.1% both eyes three times a day. Renewed @ last visit. Last visit: Pena visual field (HVF) 24-2 both eyes done today and reviewed in office. (E11.3213) 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 and macular edema, without long-term current use of insulin (HCC) Comment: Discussed retinopathy both eyes with diabetic macular edema both eyes Plan: Continue blood sugar control and monitor with primary care physician. Per Dr. Faulkner 11/13/2023: #. Severe NPDR, both eyes - extrafoveal Diabetic macular edema both eyes, stable OU #. Pseudophakia, both eyes - stable both eyes #. Primary open angle glaucoma (POAG) both eyes - 18 both eyes on drops #. 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 Plan: Recommend frequent lubrication both eyes. Limitations discussed. (H04.123) Dry eye syndrome of bilateral lacrimal glands Comment: Discussed findings on exam. Plan: Recommend continue Artificial tears both eyes four times a day and as needed. Consider preservative free Artificial tears. (H52.7) Refractive error Comment: Discussed change in Manifest refraction. Plan: Manifest refraction updated and dispensed. 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 Plan: Monitor Follow up with Dr. Faulkner as planned; 6 mos IOP check and Pena visual field (HVF) 24-2 both eyes. I have confirmed and edited as necessary the relevant ophthalmic history, ROS, and the neuro exam findings as obtained by others. I have seen and examined this patient. I have discussed the case and the management of this patient's care with the Resident/Fellow, if applicable. I also have reviewed and agree with the assessment and plan as stated above and agree with all of its relevant components. Moses Acevedo MD May 02, 2024 4:26 PM documented in this encounter [facility] 04-23-2024 History of Present illness Narrative INITIAL VISIT - WOUND CARE Dameon Potter AGE: 69 y.o. GENDER: female : 1955 TODAY'S DATE: 04/23/2024 HISTORY OF PRESENT ILLNESS: Dameon Potter is a 69 y.o. female who presents today in F/U. Stable. Lymphedema controlled with wraps. No open areas. No new C/O's. Continuing present plan. Wound Location : left, right, and leg The patients pain is Problem list: Patient Active Problem List: Endometrial cancer (CMS/HCC) (HCC) Obesity with body mass index greater than 30 OAB (overactive bladder) Uncontrolled type 2 diabetes mellitus with hyperglycemia, with long-term current use of insulin (HCC) Deficiency of nutrient elements Zinc deficiency Lymphedema Hepatic steatosis Calculus of gallbladder with chronic cholecystitis without obstruction Vitamin D deficiency Intestinal malabsorption Morbid obesity (HCC) Hypothyroidism Essential hypertension, benign Mixed hyperlipidemia Fatigue Obstructive sleep apnea SOB (shortness of breath) on exertion Gastritis without bleeding PND (post-nasal drip) Gastroesophageal reflux disease without esophagitis Asthma without status asthmaticus Candidal vulvovaginitis Cardiomegaly Cortical cataract of both eyes Diabetic retinopathy associated with type 2 diabetes mellitus (HCC) Diastolic dysfunction Dry eye syndrome of bilateral lacrimal glands Malignant neoplasm of uterus (HCC) Malnutrition of mild degree (Bianchi: 75% to less than 90% of standard weight) (HCC) Moderate recurrent major depression (HCC) Nuclear sclerotic cataract, bilateral Polycystic ovaries Posterior subcapsular age-related cataract of left eye Postmenopausal bleeding Primary open angle glaucoma of both eyes, mild stage Refractive error Chronic sinusitis Thyroglossal duct cyst Type 2 diabetes mellitus with hyperglycemia (HCC) Corneal epithelial basement membrane dystrophy Uncontrolled type 2 diabetes mellitus Non-pressure chronic ulcer left lower leg, 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) Hypertension Lymphedema of both lower extremities MDD (major depressive disorder) Urinary incontinence Asthma Vaginal candidiasis Chronic rhinitis DM retinopathy (HCC) Diastolic heart failure (HCC) HLD (hyperlipidemia) RADHA (obstructive sleep apnea) Polycystic ovarian syndrome Open-angle glaucoma Review of Systems: General: Fever: Negative Night Sweats: Negative Eye: Blurry Vision:Negative Double Vision: Negative Ent: Headaches: Negative Sore throat: Negative Ear pain or drainage: Negative Allergy/Immunology: Hives: Negative Hematology/Lymphatic: Bleeding Problems: Negative Blood Clots: Negative Swollen Lymph Nodes: Negative Lungs: Cough: Negative SOB: Negative Cardiovascular: Chest Pain: Negative Palpitations:Negative GI: Nausea/Vomiting: Negative Abdominal Pain: Negative Change in Bowels: Negative : Dysuria: Negative Increase Urinary Frequency/Urgency: Negative Neuro: Seizures: Negative Confusion: Negative PAST MEDICAL HISTORY: Review of patient's family history indicates: Problem: Stroke Relation: Father Name: Age of Onset: (Not Specified) Problem: Obesity Relation: Mother Name: dementia Age of Onset: (Not Specified) Problem: Diabetes Relation: Mother Name: dementia Age of Onset: (Not Specified) Problem: High Blood Pressure Relation: Mother Name: dementia Age of Onset: (Not Specified) Problem: Heart disease Relation: Mother Name: dementia Age of Onset: (Not Specified) Problem: Stroke Relation: Paternal Grandfather Name: Age of Onset: (Not Specified) Problem: High Blood Pressure Relation: Father Name: Age of Onset: (Not Specified) Problem: Diabetes Relation: Father Name: Age of Onset: (Not Specified) Problem: Diabetes Relation: Paternal Grandfather Name: Age of Onset: (Not Specified) Problem: Heart attack Relation: Paternal Grandmother Name: Age of Onset: (Not Specified) Problem: Colon cancer Relation: Neg Hx Name: Age of Onset: (Not Specified) Problem: High Blood Pressure Relation: Brother Name: Age of Onset: (Not Specified) Problem: Cancer Relation: Father Name: Age of Onset: (Not Specified) Comment: bladder Problem: Obesity Relation: Father Name: Age of Onset: (Not Specified) Social History Socioeconomic History Marital status: Single Spouse name: Not on file Number of children: Not on file Years of education: Not on file Highest education level: Not on file Occupational History Not on file Tobacco Use Smoking status: Never Smokeless tobacco: Never Substance and Sexual Activity Alcohol use: No Drug use: No Sexual activity: Not on file Other Topics Concerns: Not on file Social History Narrative Not on file Social Determinants of Health Financial Resource Strain: Not on file Food Insecurity: Not on file Transportation Needs: Not on file Physical Activity: Not on file Stress: Not on file Social Connections: Not on file Intimate Partner Violence: Not on file Housing Stability: Not on file Past Surgical History: No date: CATARACT EXTRACTION; Bilateral 01/29/2018: CHOLECYSTECTOMY Comment: w/ LRYGB and Umbilical Hernia repair - [facility] 09/03/2020: DILATION AND CURETTAGE OF UTERUS Comment: with hysteroscopy 01/29/2018: GASTRIC BYPASS Comment: LRYGB w/ Lap Aggie and Umbilical Hernia repair, [facility]ografakis No date: GASTRIC BYPASS 09/30/2020: HYSTERECTOMY Comment: TLH/BSO; Dr. Cuauhtemoc Stubbs : MOUTH SURGERY Comment: gum removal to expose wisdom teeth 2000: THYROGLOSSAL DUCT EXCISION Comment: [facility]- Dr. Vin Keating No date: THYROIDECTOMY 01/29/2018: UMBILICAL HERNIA REPAIR Comment: w/ LRYGB and Lap Aggie - [facility]ografakis 03/20/2017: UPPER GASTROINTESTINAL ENDOSCOPY Comment: pre op, Deepali 2012: WISDOM TOOTH EXTRACTION Comment: [facility] Past Medical History: No date: Anxiety No date: Asthma No date: Deficiency of nutrient elements No date: Depression No date: Dry eye No date: Fatigue No date: Gastritis No date: GERD (gastroesophageal reflux disease) No date: Glaucoma No date: Glaucoma No date: Hyperlipidemia No date: Hypertension No date: Hypothyroid No date: Hypothyroidism No date: Incontinence No date: Intestinal malabsorption No date: Lymph edema No date: Morbid obesity (HCC) No date: Obstructive sleep apnea No date: PMB (postmenopausal bleeding) No date: Polycystic ovarian syndrome No date: Psoriasis No date: SOB (shortness of breath) on exertion No date: Thyroglossal duct cyst No date: Type 2 diabetes mellitus without complication ([facility]) ([facility]) No date: Urinary tract infection No date: Uterine cancer ([facility]) ([facility]) 05/10/2017: Vitamin D deficiency 06/21/2018: Zinc deficiency Current Outpatient Medications on File Prior to Encounter: albuterol 108 (90 Base) MCG/ACT inhaler, Inhale 2 puffs every 6 hours as needed., Disp: , Rfl: atorvastatin (Lipitor) 40 MG tablet, Take by mouth daily., Disp: , Rfl: BD Insulin Syringe U/F 30G X 1/2 0.5 ML misc, 2 times daily with insulin, Disp: 200 each, Rfl: 3 brimonidine (AlphaGAN P) 0.1 % ophthalmic solution, Administer 1 drop into both eyes in the morning and 1 drop at noon and 1 drop in the evening., Disp: , Rfl: carvedilol (Coreg) 12.5 MG tablet, Take 12.5 mg by mouth in the morning and 12.5 mg in the evening. Take with meals., Disp: , Rfl: cholecalciferol (Vitamin D-3) 50 MCG (2000 UT) tablet, Take 2,000 Units by mouth in the morning., Disp: , Rfl: citalopram (CeleXA) 20 MG tablet, Take by mouth Every 24 hours., Disp: , Rfl: Continuous Glucose Sensor (FreeStyle Satay 3 Sensor) [facility], 1 Device every 14 (fourteen) days. (Patient not taking: Reported on 03/26/2024), Disp: 7 each, Rfl: 3 cyanocobalamin (Vitamin B-12) 1000 MCG tablet, Take 1,000 mcg by mouth 1 (one) time per week., Disp: , Rfl: EPINEPHRINE HCL, ANAPHYLAXIS, IM, Inject into the shoulder, thigh, or buttocks., Disp: , Rfl: fluconazole (Diflucan) 200 MG tablet, Take 1 tablet by mouth daily. PRN yeast infections, Disp: , Rfl: FREESTYLE LITE test strip, 1 each by Other route 4 times daily. As directed, Disp: 400 each, Rfl: 3 glucose 4 g chewable tablet, Chew 16 g if needed for low blood sugar., Disp: , Rfl: hydrocortisone (West-Dmitri) 0.2 % cream, Apply topically every 12 hours., Disp: , Rfl: insulin glargine (Lantus SoloStar) 100 UNIT/ML pen, Inject 16 Units under the skin Nightly., Disp: 15 mL, Rfl: 3 insulin lispro (HumaLOG) 100 UNIT/ML pen injection, Inject 16 Units under the skin daily with supper., Disp: 14.4 mL, Rfl: 3 insulin pen needle 32G x 4 mm misc, Use as instructed 2 times daily, Disp: 200 each, Rfl: 3 levothyroxine (Synthroid, Levoxyl) 175 MCG tablet, Take 1 tablet (175 mcg) by mouth every morning (before breakfast)., Disp: 90 tablet, Rfl: 3 loperamide (Imodium) 2 MG capsule, Take 2 mg by mouth as needed for diarrhea., Disp: , Rfl: mirabegron ER (Myrbetriq) 50 MG 24 hr tablet, Every 24 hours. PRN, Disp: , Rfl: multivitamin, Pediatric, (Flintstones Gummies) chewable tablet, Chew 2 tablets. With iron, Disp: , Rfl: olmesartan (BENIcar) 40 MG tablet, Take 1 tablet (40 mg) by mouth daily., Disp: 90 tablet, Rfl: 3 PROTEIN PO, Take by mouth., Disp: , Rfl: sulfamethoxazole-trimethoprim (Bactrim DS) 800-160 MG tablet, Take 1 tablet by mouth in the morning and 1 tablet in the evening., Disp: , Rfl: timolol (Timoptic) 0.5 % ophthalmic solution, Administer 1 drop into both eyes in the morning and 1 drop in the evening., Disp: , Rfl: triamcinolone (Kenalog) 0.1 % cream, Apply to affected area 1-2 times daily as needed. Avoid face and groin., Disp: 30 g, Rfl: 2 Current Facility-Administered Medications on File Prior to Encounter: triamcinolone (Kenalog) 0.1 % cream, , Topical, Once, Jeromeniurka Perdomo MD Allergies as of 04/23/2024 - Reviewed 04/23/2024 -- Bimatoprost -- Other -- noted 05/06/2018 -- Doxycycline -- Hives -- noted 05/24/2022 -- Erythromycin -- Hives -- noted 05/24/2022 -- Levaquin [levofloxacin] -- Hives -- noted 05/24/2022 -- Macrobid [nitrofurantoin] -- Hives -- noted 05/24/2022 -- Penicillins -- Hives -- noted 05/24/2022 -- Levofloxacin in d5w -- Swelling -- noted 03/01/2015 -- Macrolides and ketolides -- Hives -- noted 02/27/2004 -- Molds & smuts -- Itching -- noted 03/24/2015 -- Nitrofurantoin monohyd macro -- Itching -- noted 12/22/2014 -- Other -- Itching -- noted 02/11/2013 PHYSICAL EXAM: Blood pressure (!) 181/77, pulse 64, temperature 36.9 C (98.4 F), temperature source Infrared, resp. rate 18. Gen: A and O x 3, NAD, well nourished Eyes: Sclera non icterus, PERRL Head: Normocephalic, non-tender Neck: Supple, no adenopathy, thyroid non tender and no masses,no carotid bruits Lungs: CTA, symmetrical Chest: RRR, no murmurs Abd: Soft, NT, ND, no HSM, no hernias, no bruits Ext: No edema, no cyanosis Psych: reveals appropriate mood, memory and judgment, Neuro: Reveals no gross motor or sensory deficits, Msk: 5/5 strength all 4 extremities, no joint tenderness Vascular: Pulses Fem + Pop DP/PT + Assessment: BP (!) 181/77 Pulse 64 Temp 36.9 C (98.4 F) (Infrared) Resp 18 Wound Reference Date is when first assessed. Measurements shown are from today's visit. Wound BP (!) 181/77 Pulse 64 Temp 36.9 C (98.4 F) (Infrared) Resp 18 Wound : see CAHUILLA IMPRESSION:Lymphedema (primary encounter diagnosis) Plan: Plan for wound - Treatment: see orders Discussed appropriate home care of this wound. Wound redressed. Patient instructions were given. Follow up: as per protocol documented in this encounter [facility] 04-23-2024 Hospital Discharge instructions Zayda Bradford RN - 04/23/2024 11:00 AM EDT Nurse visit in [address] Perdomo in 4 weeks Triamcinolone to areas right lateral foot ABD pads to upper legs Elevate legs to the level of the heart or above for 30 minutes daily and/or when sitting, a frequency of: as much as possible Unna Boot: Do not remove Unna Boot. Keep dry. If pain or swelling or discoloration of toes noted, elevate legs above level of heart for 1 hour. If no relief, call the center. If unable to reach center, remove boot and keep leg elevated until contact with center can be made. Multilayer Compression Therapy - 4 layers: Do not get legs with compression wrap wet. If wraps seem too tight, elevate legs above level of heart for one hour. If no relief, call the wound center. documented in this encounter [facility] 04-09-2024 History of Present illness Narrative [facility] Nurse Visit Note Dameon Potter AGE: 69 y.o. GENDER: female : 1955 EPISODE DATE: 04/09/24 Arrival Information: Patient Arrived: Walker Transfer Assistance: None Accompanied by: self Any changes in medical history since last visit: No Added or removed any Medications: No Any new allergies: No Any falls since last visit: No Any hospitalizations or surgeries since last visit: No Assessment: Vitals: 04/09/24 1349 BP: (!) 168/90 Pulse: 69 Resp: 18 Temp: 36.6 C (97.9 F) Treatment: Wound: BLE Patient was seen for a nurse visit to have BLE changed. Dressing was removed. Wound was cleansed with soap and water, triamcinolone was applied to periwound, xeroform, ABDs dressing was applied to wound, unnaboot 4-layer compression wrap was applied per provider's orders. To be completed if only a dressing was applied: Discharge Information: Patient was discharged in stable condition. Ambulatory Status: Walker Discharge Destination: home Transportation: Private Auto Accompanied by: patient Schedule Follow up Appointment: yes No orders of the defined types were placed in this encounter. documented in this encounter [facility] 03-26-2024 History of Present illness Narrative Images from the original note were not included. [facility] [address] [place] [id number] Dept: [phone] Dept Loc: [phone] Visit type: Established patient Reason for Visit: Diabetes Mellitus, Hyperglycemia, and Follow-up Assessment and Plan 1. Type 2 diabetes mellitus with hyperglycemia, with long-term current use of insulin ([facility]) 2. Primary hypertension 3. Hyperlipidemia associated with type 2 diabetes mellitus (HCC) ([facility]) 4. Class 3 severe obesity due to excess calories with serious comorbidity and body mass index (BMI) of 40.0 to 44.9 in adult ([facility]) 5. Acquired hypothyroidism 6. Insulin resistance A1C is Lab Results Component Value Date HGBA1C 11.8 02/18/2024 Type 2 diabetes mellitus with hyperglycemia, with long-term current use of insulin - not controlled Diabetes is not stable Goal A1C = 6.5-7.0. Glucose goal range: 100-150 Insulin is necessary for ongoing mgmt. PATIENT IS TO NOT TAKE U500 INSULIN Patient will make the following changes to their antihyperglycemic regimen: Cotinue lantus 16 units daily Continue humalog units with dinner Encourage to send in download in 2 weeks for cahges as may be needed aftwer her U500 is stopped Continue satya 3 through DME (total) scripts printed and sent- needs to have DME for satya teaching and assistance with set up No sglt-2- has frequent UTI and incontinence from uterine cancer and radiation No GLP-1- frequent diarrhea- as above Recommend FSBS to occur 4 times daily, be recorded, and send to office in 2 weeks for review. 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 daily Class 3 severe obesity due to excess calories with serious comorbidity and body mass index (BMI) of 45.0 to 49.9 in adult - -Pt was counseled that diet and exercise are the foundation of DM treatment. If these 2 areas are not optimized then the pt will likely require more medications or higher doses to achieve control. Pt was asked to limit CHO consumption at each meal. Pt was advised to perform regular regimented brisk aerobic activity (ie walking, biking, swimming, etc) 30 min/d, 5d/wk (total of 150min weekly). Acquired hypothyroidism Reviewed labs from 02/18/2024- TSH 2.7 TSH goal is normal range Continue levothyroxine per PCP Discussed A1C and BG goals Encouraged lifestyle modifications of diet and exercise Encouraged optimal foot care- follow with podiatry if needed Encouraged following with ophthalmology Patient counseled on the importance of taking medication as prescribed Patient counseled on the effects of uncontrolled DM on other organ systems Patient counseled on risk factors assoicated with diabetes Patient counseled on detection and treatment of hypoglycemia Patient instructed to call office if BG >250 or <70 consistently Pt counseled about these recommendations. Pt voiced understanding. These recommendations made based on interpretation of available data (which may include FSBS, A1C, venous sampling, or data from pt recall). I reviewed: laboratory results reviewed: Yes radiographic reports reviewed: No I reviewed the radiographic images personally at the time of today's visit: No Pt was advised of the results. Records from outside facility/PCP office to be requested: No Scripts sent to pharmacy of pt choice: Yes No follow-ups on file. 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 Initial [facility] office visit: 04/06/2021 Last office visit: 11/02/2023 Gastric bypass 2018 DM Onset: 2000 Type of DM: 2 Complications: Cardiovascular -- Yes htn, hlp Statin Use -- Yes LastDEE/Retina Eval: 10/26/2023 Dr Acevedo, q 6 months Retinopathy -- Yes Nephropathy -- Yes EDMAR/ARB Use -- Yes Polyneuropathy -- Yes Foot Exam: WOUND CENTER q2 WEEKS- for wraps- as long as wrapped they stay healed Obesity -- Yes Other -- No Personal history of pancreatitis-- No History of alcohol consumption--No Family history of thyroid cancer-- No Personal history of Urinary tract infections -- No Today's complaints include: Still going to wound center for wraps to her legs q2 weeks Is done with radiation Since last office visit denies new health problems, denies hospitalizations, and denies surgeries. Pt feels their blood sugars are unchanged since RAUL. Pt c/o sxs at today's visit: no Pt c/o sxs of hyperglycemia at today's visit: no Pt c/o SEs from Medications at today's visit: no Pt voices concerns about cost of medications at today's visit: no Hyperglycemia present: Yes Hypoglycemia present: No Blood sugar monitoring device used: glucometer Frequency of BGL checks 1-2 times daily Checking in the morning, see 180s If checking the 2nd time it is right after her 2nd meal it is higher Meter present:No Log present: No Reviewed w/ pt: No Scanned into Media: No Current DM Medications: Humalog 4-5 units daily Lantus 13 units daily 9 she thinks) Taking Medications w/o Missed Doses: No Following Diet for DM: No 2 meals per day - Lunch and dinner Misses breakfast Graze throughout the day Diet drinks or water viatmix Following Exercise Regimen: No WALKS WITH WALKER Previously Used DM Meds: Yes Basaglar - Never started Did not qualify for patient assistance Metformin 500 mg 1 tablet BID (Not taking GI Side effects) Trulicity - Never started Did not qualify for patient assistance U500 Review of Systems All other systems reviewed and are negative. An entire ROS was performed at the time of this encounter. Unless noted above in the HPI, the ROS is negative. Allergies Allergen Reactions Bimatoprost Other Blurred vision Doxycycline Hives Erythromycin Hives Levaquin [Levofloxacin] Hives Macrobid [Nitrofurantoin] Hives Penicillins Hives Levofloxacin In D5w Swelling oral Macrolides And Ketolides Hives 1980 Molds & Smuts Itching Mold allergy Nitrofurantoin Monohyd Macro Itching Other Itching Outpatient Medications Prior to Visit Medication Sig Dispense Refill albuterol 108 (90 Base) MCG/ACT inhaler Inhale 2 puffs every 6 hours as needed. atorvastatin (Lipitor) 40 MG tablet Take by mouth daily. BD Insulin Syringe U/F 30G X 1/2 0.5 ML misc 2 times daily with insulin 200 each 3 brimonidine (AlphaGAN P) 0.1 % ophthalmic solution Administer 1 drop into both eyes in the morning and 1 drop at noon and 1 drop in the evening. carvedilol (Coreg) 12.5 MG tablet Take 12.5 mg by mouth in the morning and 12.5 mg in the evening. Take with meals. cholecalciferol (Vitamin D-3) 50 MCG (2000 UT) tablet Take 2,000 Units by mouth in the morning. citalopram (CeleXA) 20 MG tablet Take by mouth Every 24 hours. cyanocobalamin (Vitamin B-12) 1000 MCG tablet Take 1,000 mcg by mouth 1 (one) time per week. EPINEPHRINE HCL, ANAPHYLAXIS, IM Inject into the shoulder, thigh, or buttocks. fluconazole (Diflucan) 200 MG tablet Take 1 tablet by mouth daily. PRN yeast infections FREESTYLE LITE test strip 1 each by Other route 4 times daily. As directed 400 each 3 glucose 4 g chewable tablet Chew 16 g if needed for low blood sugar. hydrocortisone (West-Dmitri) 0.2 % cream Apply topically every 12 hours. insulin glargine (Lantus SoloStar) 100 UNIT/ML pen Inject 16 Units under the skin Nightly. 15 mL 3 insulin lispro (HumaLOG) 100 UNIT/ML pen injection Inject 16 Units under the skin daily with supper. 14.4 mL 3 insulin pen needle 32G x [facility] Use as instructed 2 times daily 200 each 3 levothyroxine (Synthroid, Levoxyl) 175 MCG tablet Take 1 tablet (175 mcg) by mouth every morning (before breakfast). 90 tablet 3 loperamide (Imodium) 2 MG capsule Take 2 mg by mouth as needed for diarrhea. mirabegron ER (Myrbetriq) 50 MG 24 hr tablet Every 24 hours. PRN multivitamin, Pediatric, (Flintstones Gummies) chewable tablet Chew 2 tablets. With iron olmesartan (BENIcar) 40 MG tablet Take 1 tablet (40 mg) by mouth daily. 90 tablet 3 PROTEIN PO Take by mouth. sulfamethoxazole-trimethoprim (Bactrim DS) 800-160 MG tablet Take 1 tablet by mouth in the morning and 1 tablet in the evening. timolol (Timoptic) 0.5 % ophthalmic solution Administer 1 drop into both eyes in the morning and 1 drop in the evening. triamcinolone (Kenalog) 0.1 % cream Apply to affected area 1-2 times daily as needed. Avoid face and groin. 30 g 2 Continuous Glucose Sensor (FreeStyle Satya 3 Sensor) misc 1 Device every 14 (fourteen) days. (Patient not taking: Reported on 03/26/2024) 7 each 3 Facility-Administered Medications Prior to Visit Medication Dose Route Frequency Provider Last Rate Last Admin triamcinolone (Kenalog) 0.1 % cream Topical Once Jerome Perdomo MD Past Medical History: Diagnosis Date Anxiety Asthma Deficiency of nutrient elements Depression Dry eye Fatigue Gastritis GERD (gastroesophageal reflux disease) Glaucoma Glaucoma Hyperlipidemia Hypertension Hypothyroid Hypothyroidism Incontinence Intestinal malabsorption Lymph edema Morbid obesity (HCC) Obstructive sleep apnea PMB (postmenopausal bleeding) Polycystic ovarian syndrome Psoriasis SOB (shortness of breath) on exertion Thyroglossal duct cyst Type 2 diabetes mellitus without complication (CMS/HCC) (HCC) Urinary tract infection Uterine cancer (CMS/HCC) (HCC) Vitamin D deficiency 05/10/2017 Zinc deficiency 06/21/2018 Social History Tobacco Use Smoking status: Never Smokeless tobacco: Never Substance Use Topics Alcohol use: No Past Surgical History: Procedure Laterality Date CATARACT EXTRACTION Bilateral CHOLECYSTECTOMY 01/29/2018 w/ LRYGB and Umbilical Hernia repair - [facility]ografakis DILATION AND CURETTAGE OF UTERUS 09/03/2020 with hysteroscopy GASTRIC BYPASS 01/29/2018 LRYGB w/ Lap Aggie and Umbilical Hernia repair, Zografakis GASTRIC BYPASS HYSTERECTOMY 09/30/2020 TLH/BSO; Dr. Cuauhtemoc Stubbs MOUTH SURGERY 1979' gum removal to expose wisdom teeth THYROGLOSSAL DUCT EXCISION [facility] Dr. Vin Keating THYROIDECTOMY UMBILICAL HERNIA REPAIR 01/29/2018 w/ LRYGB and Lap Aggie - Zografakis UPPER GASTROINTESTINAL ENDOSCOPY 03/20/2017 pre op, Zografakis WISDOM TOOTH EXTRACTION 2013 [facility] Family History Problem Relation Name Age of Onset Stroke Father Obesity Mother dementia Diabetes Mother dementia High Blood Pressure Mother dementia Heart disease Mother dementia Stroke Paternal Grandfather High Blood Pressure Father Diabetes Father Diabetes Paternal Grandfather Heart attack Paternal Grandmother Colon cancer Neg Hx High Blood Pressure Brother Cancer Father bladder Obesity Father Objective BP 132/84 Pulse 66 Ht 5' 6 (1.676 m) Wt 255 lb 4.8 oz (116 kg) BMI 41.21 kg/m Physical Exam Constitutional: General: She is not in acute distress. Appearance: Normal appearance. She is obese. She is not ill-appearing, toxic-appearing or diaphoretic. HENT: Head: Normocephalic and atraumatic. Right Ear: External ear normal. Left Ear: External ear normal. Nose: Nose normal. Mouth/Throat: Mouth: Mucous membranes are moist. Eyes: Conjunctiva/sclera: Conjunctivae normal. Pulmonary: Effort: Pulmonary effort is normal. No respiratory distress. Musculoskeletal: General: No swelling. Normal range of motion. Skin: General: Skin is warm and dry. Neurological: General: No focal deficit present. Mental Status: She is alert. Psychiatric: Mood and Affect: Mood normal. Behavior: Behavior normal. Data Reviewed and Summarized Labs: No components found for: LABA1C No components found for: EAG Lab Results Component Value Date NA 135 04/06/2021 K 4.5 04/06/2021 CL 103 04/06/2021 CO2 23 10/06/2022 BUN 17 10/06/2022 CREATININE 0.78 10/06/2022 GLUCOSE 306 (H) 10/06/2022 CALCIUM 8.9 10/06/2022 Lab Results Component Value Date CHLPL 151 06/22/2021 CHLPL 151 06/22/2021 CHLPL 126 07/03/2019 CHOL 151 02/18/2024 CHOL 149 04/06/2021 CHOL 126 03/04/2020 Lab Results Component Value Date TRIG 129 02/18/2024 TRIG 414 06/22/2021 TRIG 167 (A) 04/06/2021 Lab Results Component Value Date HDL 49 02/18/2024 HDL 50 06/22/2021 HDL 50 06/22/2021 Lab Results Component Value Date LDLCALC 76 02/18/2024 LDLCALC 77 06/22/2021 LDLCALC 68 07/03/2019 Lab Results Component Value Date VLDL 26 02/18/2024 Lab Results Component Value Date CHOLHDLRATIO 3 02/18/2024 CHOLHDLRATIO 3.0 06/22/2021 CHOLHDLRATIO 4 04/06/2021 No results found for: [id number] Imaging/Testing: AMAURY Higgins CNP Portions of the information within this encounter were entered using an electronic dictation system. Best attempts were made to edit/proofread the information prior to note completion. Despite the review of information, some errors may remain. If there are questions related to the information contained within the note please contact the signing physician directly. documented in this encounter [facility] 03-26-2024 History of Present illness Narrative INITIAL VISIT - WOUND CARE Dameon Potter AGE: 69 y.o. GENDER: female : 1955 TODAY'S DATE: 03/26/24 HISTORY OF PRESENT ILLNESS: Dameon Potter is a 69 y.o. female who presents today for routine lymphedema check. Edema well-controlled with wraps. Additionally, pt. Had 2 markedly overgrown great toenails that were already from nail bed and irritating adjacent toes - these were trimmed/debrided. 03/26/24 here for follow up-seen in coverage. No open wounds noted to BLE. Continues MLCD for edema control. Wound Location : left, right, and leg The patients pain is Problem list: Patient Active Problem List: Endometrial cancer (CMS/HCC) (HCC) Obesity with body mass index greater than 30 OAB (overactive bladder) Uncontrolled type 2 diabetes mellitus with hyperglycemia, with long-term current use of insulin (HCC) Deficiency of nutrient elements Zinc deficiency Lymphedema Hepatic steatosis Calculus of gallbladder with chronic cholecystitis without obstruction Vitamin D deficiency Intestinal malabsorption Morbid obesity (HCC) Hypothyroidism Essential hypertension, benign Mixed hyperlipidemia Fatigue Obstructive sleep apnea SOB (shortness of breath) on exertion Gastritis without bleeding PND (post-nasal drip) Gastroesophageal reflux disease without esophagitis Asthma without status asthmaticus Candidal vulvovaginitis Cardiomegaly Cortical cataract of both eyes Diabetic retinopathy associated with type 2 diabetes mellitus (HCC) Diastolic dysfunction Dry eye syndrome of bilateral lacrimal glands Malignant neoplasm of uterus (HCC) Malnutrition of mild degree (Bianchi: 75% to less than 90% of standard weight) (HCC) Moderate recurrent major depression (HCC) Nuclear sclerotic cataract, bilateral Polycystic ovaries Posterior subcapsular age-related cataract of left eye Postmenopausal bleeding Primary open angle glaucoma of both eyes, mild stage Refractive error Chronic sinusitis Thyroglossal duct cyst Type 2 diabetes mellitus with hyperglycemia (HCC) Corneal epithelial basement membrane dystrophy Uncontrolled type 2 diabetes mellitus Non-pressure chronic ulcer left lower leg, 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) Hypertension Lymphedema of both lower extremities MDD (major depressive disorder) Urinary incontinence Asthma Vaginal candidiasis Chronic rhinitis DM retinopathy (HCC) Diastolic heart failure (HCC) HLD (hyperlipidemia) RADHA (obstructive sleep apnea) Polycystic ovarian syndrome Open-angle glaucoma Review of Systems: General: Fever: Negative Night Sweats: Negative Lungs: Cough: Negative SOB: Negative Cardiovascular: Chest Pain: Negative Palpitations:Negative Nausea/Vomiting: Negative Abdominal Pain: Negative Change in Bowels: Negative : Dysuria: Negative Increase Urinary Frequency/Urgency: Negative Neuro: Seizures: Negative Confusion: Negative PAST MEDICAL HISTORY: Review of patient's family history indicates: Problem: Stroke Relation: Father Name: Age of Onset: (Not Specified) Problem: Obesity Relation: Mother Name: dementia Age of Onset: (Not Specified) Problem: Diabetes Relation: Mother Name: dementia Age of Onset: (Not Specified) Problem: High Blood Pressure Relation: Mother Name: dementia Age of Onset: (Not Specified) Problem: Heart disease Relation: Mother Name: dementia Age of Onset: (Not Specified) Problem: Stroke Relation: Paternal Grandfather Name: Age of Onset: (Not Specified) Problem: High Blood Pressure Relation: Father Name: Age of Onset: (Not Specified) Problem: Diabetes Relation: Father Name: Age of Onset: (Not Specified) Problem: Diabetes Relation: Paternal Grandfather Name: Age of Onset: (Not Specified) Problem: Heart attack Relation: Paternal Grandmother Name: Age of Onset: (Not Specified) Problem: Colon cancer Relation: Neg Hx Name: Age of Onset: (Not Specified) Problem: High Blood Pressure Relation: Brother Name: Age of Onset: (Not Specified) Problem: Cancer Relation: Father Name: Age of Onset: (Not Specified) Comment: bladder Problem: Obesity Relation: Father Name: Age of Onset: (Not Specified) Social History Socioeconomic History Marital status: Single Spouse name: Not on file Number of children: Not on file Years of education: Not on file Highest education level: Not on file Occupational History Not on file Tobacco Use Smoking status: Never Smokeless tobacco: Never Substance and Sexual Activity Alcohol use: No Drug use: No Sexual activity: Not on file Other Topics Concerns: Not on file Social History Narrative Not on file Social Determinants of Health Financial Resource Strain: Not on file Food Insecurity: Not on file Transportation Needs: Not on file Physical Activity: Not on file Stress: Not on file Social Connections: Not on file Intimate Partner Violence: Not on file Housing Stability: Not on file Past Surgical History: No date: CATARACT EXTRACTION; Bilateral 01/29/2018: CHOLECYSTECTOMY Comment: w/ LRYGB and Umbilical Hernia repair - Zografakis 09/03/2020: DILATION AND CURETTAGE OF UTERUS Comment: with hysteroscopy 01/29/2018: GASTRIC BYPASS Comment: LRYGB w/ Lap Aggie and Umbilical Hernia repair, Zografakis No date: GASTRIC BYPASS 09/30/2020: HYSTERECTOMY Comment: TLH/BSO; Dr. Cuauhtemoc Stubbs : MOUTH SURGERY Comment: gum removal to expose wisdom teeth 2000: THYROGLOSSAL DUCT EXCISION Comment: [facility]- Dr. Vin Keating No date: THYROIDECTOMY 01/29/2018: UMBILICAL HERNIA REPAIR Comment: w/ LRYGB and Lap Aggie - Zografakis 03/20/2017: UPPER GASTROINTESTINAL ENDOSCOPY Comment: pre op, Deepali 2012: WISDOM TOOTH EXTRACTION Comment: [facility] Past Medical History: No date: Anxiety No date: Asthma No date: Deficiency of nutrient elements No date: Depression No date: Dry eye No date: Fatigue No date: Gastritis No date: GERD (gastroesophageal reflux disease) No date: Glaucoma No date: Glaucoma No date: Hyperlipidemia No date: Hypertension No date: Hypothyroid No date: Hypothyroidism No date: Incontinence No date: Intestinal malabsorption No date: Lymph edema No date: Morbid obesity (HCC) No date: Obstructive sleep apnea No date: PMB (postmenopausal bleeding) No date: Polycystic ovarian syndrome No date: Psoriasis No date: SOB (shortness of breath) on exertion No date: Thyroglossal duct cyst No date: Type 2 diabetes mellitus without complication ([facility]) ([facility]) No date: Urinary tract infection No date: Uterine cancer ([facility]) ([facility]) 05/10/2017: Vitamin D deficiency 06/21/2018: Zinc deficiency Current Outpatient Medications on File Prior to Encounter: albuterol 108 (90 Base) MCG/ACT inhaler, Inhale 2 puffs every 6 hours as needed., Disp: , Rfl: atorvastatin (Lipitor) 40 MG tablet, Take by mouth daily., Disp: , Rfl: BD Insulin Syringe U/F 30G X 1/2 0.5 ML misc, 2 times daily with insulin, Disp: 200 each, Rfl: 3 brimonidine (AlphaGAN P) 0.1 % ophthalmic solution, Administer 1 drop into both eyes in the morning and 1 drop at noon and 1 drop in the evening., Disp: , Rfl: carvedilol (Coreg) 12.5 MG tablet, Take 12.5 mg by mouth in the morning and 12.5 mg in the evening. Take with meals., Disp: , Rfl: cholecalciferol (Vitamin D-3) 50 MCG (2000 UT) tablet, Take 2,000 Units by mouth in the morning., Disp: , Rfl: citalopram (CeleXA) 20 MG tablet, Take by mouth Every 24 hours., Disp: , Rfl: Continuous Glucose Sensor (FreeStyle Satya 3 Sensor) [facility], 1 Device every 14 (fourteen) days., Disp: 7 each, Rfl: 3 cyanocobalamin (Vitamin B-12) 1000 MCG tablet, Take 1,000 mcg by mouth 1 (one) time per week., Disp: , Rfl: EPINEPHRINE HCL, ANAPHYLAXIS, IM, Inject into the shoulder, thigh, or buttocks., Disp: , Rfl: fluconazole (Diflucan) 200 MG tablet, Take 1 tablet by mouth daily. PRN yeast infections, Disp: , Rfl: FREESTYLE LITE test strip, 1 each by Other route 4 times daily. As directed, Disp: 400 each, Rfl: 3 glucose 4 g chewable tablet, Chew 16 g if needed for low blood sugar., Disp: , Rfl: hydrocortisone (West-Dmitri) 0.2 % cream, Apply topically every 12 hours., Disp: , Rfl: insulin glargine (Lantus SoloStar) 100 UNIT/ML pen, Inject 16 Units under the skin Nightly., Disp: 15 mL, Rfl: 3 insulin lispro (HumaLOG) 100 UNIT/ML pen injection, Inject 16 Units under the skin daily with supper., Disp: 14.4 mL, Rfl: 3 insulin pen needle 32G x 4 mm [facility], Use as instructed 2 times daily, Disp: 200 each, Rfl: 3 levothyroxine (Synthroid, Levoxyl) 175 MCG tablet, Take 1 tablet (175 mcg) by mouth every morning (before breakfast)., Disp: 90 tablet, Rfl: 3 loperamide (Imodium) 2 MG capsule, Take 2 mg by mouth as needed for diarrhea., Disp: , Rfl: mirabegron ER (Myrbetriq) 50 MG 24 hr tablet, Every 24 hours. PRN, Disp: , Rfl: multivitamin, Pediatric, (Flintstones Gummies) chewable tablet, Chew 2 tablets. With iron, Disp: , Rfl: olmesartan (BENIcar) 40 MG tablet, Take 1 tablet (40 mg) by mouth daily., Disp: 90 tablet, Rfl: 3 PROTEIN PO, Take by mouth., Disp: , Rfl: sulfamethoxazole-trimethoprim (Bactrim DS) 800-160 MG tablet, Take 1 tablet by mouth in the morning and 1 tablet in the evening., Disp: , Rfl: timolol (Timoptic) 0.5 % ophthalmic solution, Administer 1 drop into both eyes in the morning and 1 drop in the evening., Disp: , Rfl: triamcinolone (Kenalog) 0.1 % cream, Apply to affected area 1-2 times daily as needed. Avoid face and groin., Disp: 30 g, Rfl: 2 Current Facility-Administered Medications on File Prior to Encounter: triamcinolone (Kenalog) 0.1 % cream, , Topical, Once, Jerome Perdomo MD Allergies as of 02/27/2024 - Reviewed 02/27/2024 -- Bimatoprost -- Other -- noted 05/06/2018 -- Doxycycline -- Hives -- noted 05/24/2022 -- Erythromycin -- Hives -- noted 05/24/2022 -- Levaquin [levofloxacin] -- Hives -- noted 05/24/2022 -- Macrobid [nitrofurantoin] -- Hives -- noted 05/24/2022 -- Penicillins -- Hives -- noted 05/24/2022 -- Levofloxacin in d5w -- Swelling -- noted 03/01/2015 -- Macrolides and ketolides -- Hives -- noted 02/27/2004 -- Molds & smuts -- Itching -- noted 03/24/2015 -- Nitrofurantoin monohyd macro -- Itching -- noted 12/22/2014 -- Other -- Itching -- noted 02/11/2013 PHYSICAL EXAM: Blood pressure (!) 202/95, pulse 80, temperature 36.4 C (97.5 F), temperature source Infrared, resp. rate 18. Gen: A and O x 3, NAD, well nourished Head: Normocephalic, non-tender Ext: No edema, no cyanosis Psych: reveals appropriate mood, memory and judgment, Neuro: Reveals no gross motor or sensory deficits, Msk: 5/5 strength all 4 extremities, no joint tenderness Vascular: Pulses Fem + Pop DP/PT + Assessment: 03/26/2024 11:10 AM BP 164/87 Pulse 61 Resp 16 Temp 36.7 C (98 F) Temp src Infrared Pain Score 0-No pain Wound: no open wound IMPRESSION:Lymphedema (primary encounter diagnosis) Plan: Plan for wound - Treatment: see orders-MLCD as ordered -f/up 1 week (nurse visits as directed) Discussed appropriate home care of this wound. Wound redressed. Patient instructions were given. Follow up: as per protocol Electronically signed by AMAURY Bowling CNP 12:02 PM documented in this encounter [facility] 03-26-2024 Hospital Discharge instructions Zayda Bradford RN - 03/26/2024 11:00 AM EDT Nurse visit in [address] Perdomo in 4 weeks Triamcinolone to areas on legs along with Xeroform if needed ABD pads to upper legs Elevate legs to the level of the heart or above for 30 minutes daily and/or when sitting, a frequency of: as much as possible Unna Boot: Do not remove Unna Boot. Keep dry. If pain or swelling or discoloration of toes noted, elevate legs above level of heart for 1 hour. If no relief, call the center. If unable to reach center, remove boot and keep leg elevated until contact with center can be made. Multilayer Compression Therapy - 4 layers: Do not get legs with compression wrap wet. If wraps seem too tight, elevate legs above level of heart for one hour. If no relief, call the wound center. documented in this encounter [facility] 03-18-2024 Telephone encounter Note Scheduled on 03/26 at 3pm [facility] 03-18-2024 Miscellaneous Notes Scheduled on 03/26 at 3pm - [place] Name of caller: Dameon Contact phone number: [phone] Relationship to Patient: patient Provider: SAMUEL Cruz Practice: [facility] Endocrinology Chief Complaint/Reason for Call: Pt states she needs to reschedule her appointment that she had to cancel for 03/19. Pt states she prefers late afternoon appointments. Please review. Best time of day caller can be reached: any Patient advised that office/PCP has 24-48 business hours to return their call: Yes documented in this encounter [facility] 03-17-2024 Telephone encounter Note Name of caller: Dameon Contact phone number: [phone] Relationship to Patient: patient Provider: SAMUEL Cruz Practice: [facility] Endocrinology Chief Complaint/Reason for Call: Pt states she needs to reschedule her appointment that she had to cancel for 03/19. Pt states she prefers late afternoon appointments. Please review. Best time of day caller can be reached: any Patient advised that office/PCP has 24-48 business hours to return their call: Yes [facility] 03-12-2024 History of Present illness Narrative [facility] Nurse Visit Note Dameon Potter AGE: 69 y.o. GENDER: female : 1955 EPISODE DATE: 03/12/24 Arrival Information: Patient Arrived: Walker Transfer Assistance: None Accompanied by: self Any changes in medical history since last visit: No Added or removed any Medications: No Any new allergies: No Any falls since last visit: No Any hospitalizations or surgeries since last visit: No Assessment: Vitals: 03/12/24 1410 BP: 135/76 Pulse: 80 Temp: 36.6 C (97.8 F) Treatment: Wound: BLE Patient was seen for a nurse visit to have profores changed. Dressing was removed. Wound was cleansed with soap and water, triamcinolone was applied to periwound, xeroform, DSD, dressing was applied to wound, UB and profore compression wrap was applied per provider's orders. To be completed if only a dressing was applied: Discharge Information: Patient was discharged in stable condition. Ambulatory Statusathome Transportation: Private Auto Accompanied by: patient Schedule Follow up Appointment: yes No orders of the defined types were placed in this encounter. documented in this encounter [facility] 03-04-2024 History of Present illness Narrative @[email or web address] Chief Complaint Patient presents with Other HISTORY OF THE PRESENT ILLNESS: Dameon Potter is a 69 y.o. with a history of Stage II grade 1 endometrial adenocarcinoma who presents today for routine surveillance of disease. She was initially diagnosed in 09/30/2020 and managed with robotic hysterectomy bilateral salpingo-oophorectomy followed by radiation therapy. INTERVAL SINCE RADIATION: 5 weeks 11/29/20 - 01/03/21: 45.00/45.00 Gy to the Pelvis in 25 fractions of 1.80 Gy using the VMAT/Daily IGRT technique with 10 MV over 35 days. 01/14/21 - 01/28/21: 30.00/30.00 Gy to the Vaginal Brachy in 5 fractions of 6.00 Gy using the Brachytherapy technique with HDR: Ir192 over [address] of A/P done 12/04/23 shows IMPRESSION: 1. No evidence of abdominal or pelvic mass lesion or adenopathy or other significant abnormality with chronic changes as detailed above. Interval History: Since the patient's last visit, she has been doing well and is without complaints. She denies abdominal pain, abdominal distension, pelvic pain, bloating, constipation, nausea, vomiting, increased abdominal girth, early satiety, weight loss, weight gain, vaginal bleeding and vaginal discharge, SOB. Reports her abd hernia has not changed. Pt has occasional UTIs, had last UTI a month ago, she also has frequent yeast infections which her PCP is helping to manage- staying the same. 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 Currently, denies hematuria, fever, chills, dysuria. Has chronic urinary incontinence. 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 Has ongoing issues with diarrhea since radiation. Using imodium as needed. Had gastric bypass surgery in 2018 and this also makes diarrhea worse for her. Wears depends and a susan pad. Also has urinary incontinence, was following with Dr. Ngo. Not interested in a referral at this time. Patient has cellulitis on bilateral legs and follows with wound care prn. Enjoyed Easter with her family-lots of nieces and nephews. One niece is due in 2 weeks with baby, due around 10/2022, little girl. Past Medical History: Diagnosis Date Anxiety Asthma Deficiency of nutrient elements Depression Dry eye Fatigue Gastritis GERD (gastroesophageal reflux disease) Glaucoma Glaucoma Hyperlipidemia Hypertension Hypothyroid Hypothyroidism Incontinence Intestinal malabsorption Lymph edema Morbid obesity (HCC) Obstructive sleep apnea PMB (postmenopausal bleeding) Polycystic ovarian syndrome Psoriasis SOB (shortness of breath) on exertion Thyroglossal duct cyst Type 2 diabetes mellitus without complication (CMS/HCC) (HCC) Urinary tract infection Uterine cancer (CMS/HCC) ([facility]) Vitamin D deficiency 05/10/2017 Zinc deficiency 06/21/2018 Past Surgical History: Procedure Laterality Date CATARACT EXTRACTION Bilateral CHOLECYSTECTOMY 01/29/2018 w/ LRYGB and Umbilical Hernia repair - Zografakis DILATION AND CURETTAGE OF UTERUS 09/03/2020 with hysteroscopy GASTRIC BYPASS 01/29/2018 LRYGB w/ Lap Aggie and Umbilical Hernia repair, Zografakis GASTRIC BYPASS HYSTERECTOMY 09/30/2020 [facility]/BSO; Dr. Cuauhtemoc Stubbs MOUTH SURGERY 1979' gum removal to expose wisdom teeth THYROGLOSSAL DUCT EXCISION 2000 [facility]- Dr. Vin Keating THYROIDECTOMY UMBILICAL HERNIA REPAIR 01/29/2018 w/ LRYGB and Lap Aggie - Zografakis UPPER GASTROINTESTINAL ENDOSCOPY 03/20/2017 pre op, [facility]ografakis WISDOM TOOTH EXTRACTION 2013 [facility] [email or web address] Allergies as of 03/04/2024 - Reviewed 03/04/2024 Allergen Reaction Noted Bimatoprost Other 05/06/2018 Doxycycline Hives 05/24/2022 Erythromycin Hives 05/24/2022 Levaquin [levofloxacin] Hives 05/24/2022 Macrobid [nitrofurantoin] Hives 05/24/2022 Penicillins Hives 05/24/2022 Levofloxacin in d5w Swelling 03/01/2015 Macrolides and ketolides Hives 02/27/2004 Molds & smuts Itching 03/24/2015 Nitrofurantoin monohyd macro Itching 12/22/2014 Other Itching 02/11/2013 REVIEW OF SYSTEMS: As per the HPI, otherwisenegative. Vitals: 03/04/24 1515 BP: (!) 200/96 Pulse: 73 Body mass index is 41.19 kg/m . Physical Exam Constitutional: Appearance: Normal appearance. HENT: Head: Normocephalic. Pulmonary: Effort: Pulmonary effort is normal. Abdominal: Palpations: Abdomen is soft. Hernia: A hernia is present. Comments: Well-healed laparoscopic incisions, large abdominal hernia Genitourinary: Comments: .Uterus, cervix, bilateral adnexa surgically absent. No lesions or nodularity of the vaginal cuff, posterior cul-de-sac or rectovaginal vault. Radiation changes seen through the vaginal canal. No bleeding or discharge noted. Thick cottage cheese like discharge. Musculoskeletal: Right lower leg: Edema present. Left lower leg: Edema present. Skin: General: Skin is warm and dry. Neurological: Mental Status: She is alert and oriented to person, place, and time. Psychiatric: Mood and Affect: Mood normal. Behavior: Behavior normal. ASSESSMENT/PLAN: 69 y.o. with Stage II grade 1 endometrial adenocarcinoma, currently without evidence of recurrence of disease. Continue routine surveillance of disease with visit every 6 months. Follow-up in 6 months Sureab vaginal cytology done will call with results and follow-up accordingly Continue with follow ups with PCP regarding occasional UTIs and yeast infections, HTN. The patient had an opportunity to ask questions, all of which were answered to the best of my ability. She is in agreement with the above noted plan. documented in this encounter [facility] 02-27-2024 History of Present illness Narrative INITIAL VISIT - WOUND CARE Dameon Potter AGE: 69 y.o. GENDER: female : 1955 TODAY'S DATE: 02/27/2024 HISTORY OF PRESENT ILLNESS: Dameon Potter is a 69 y.o. female who presents today for routine lymphedema check. Edema well-controlled with wraps. Additionally, pt. Had 2 markedly overgrown great toenails that were already from nail bed and irritating adjacent toes - these were trimmed/debrided. Wound Location : left, right, and leg The patients pain is Problem list: Patient Active Problem List: Endometrial cancer (CMS/HCC) (HCC) Obesity with body mass index greater than 30 OAB (overactive bladder) Uncontrolled type 2 diabetes mellitus with hyperglycemia, with long-term current use of insulin (HCC) Deficiency of nutrient elements Zinc deficiency Lymphedema Hepatic steatosis Calculus of gallbladder with chronic cholecystitis without obstruction Vitamin D deficiency Intestinal malabsorption Morbid obesity (HCC) Hypothyroidism Essential hypertension, benign Mixed hyperlipidemia Fatigue Obstructive sleep apnea SOB (shortness of breath) on exertion Gastritis without bleeding PND (post-nasal drip) Gastroesophageal reflux disease without esophagitis Asthma without status asthmaticus Candidal vulvovaginitis Cardiomegaly Cortical cataract of both eyes Diabetic retinopathy associated with type 2 diabetes mellitus (HCC) Diastolic dysfunction Dry eye syndrome of bilateral lacrimal glands Malignant neoplasm of uterus (HCC) Malnutrition of mild degree (Bianchi: 75% to less than 90% of standard weight) (HCC) Moderate recurrent major depression (HCC) Nuclear sclerotic cataract, bilateral Polycystic ovaries Posterior subcapsular age-related cataract of left eye Postmenopausal bleeding Primary open angle glaucoma of both eyes, mild stage Refractive error Chronic sinusitis Thyroglossal duct cyst Type 2 diabetes mellitus with hyperglycemia (HCC) Corneal epithelial basement membrane dystrophy Uncontrolled type 2 diabetes mellitus Non-pressure chronic ulcer left lower leg, 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) Hypertension Lymphedema of both lower extremities MDD (major depressive disorder) Urinary incontinence Asthma Vaginal candidiasis Chronic rhinitis DM retinopathy (HCC) Diastolic heart failure (HCC) HLD (hyperlipidemia) RADHA (obstructive sleep apnea) Polycystic ovarian syndrome Open-angle glaucoma Review of Systems: General: Fever: Negative Night Sweats: Negative Eye: Blurry Vision:Negative Double Vision: Negative Ent: Headaches: Negative Sore throat: Negative Ear pain or drainage: Negative Allergy/Immunology: Hives: Negative Hematology/Lymphatic: Bleeding Problems: Negative Blood Clots: Negative Swollen Lymph Nodes: Negative Lungs: Cough: Negative SOB: Negative Cardiovascular: Chest Pain: Negative Palpitations:Negative GI: Nausea/Vomiting: Negative Abdominal Pain: Negative Change in Bowels: Negative : Dysuria: Negative Increase Urinary Frequency/Urgency: Negative Neuro: Seizures: Negative Confusion: Negative PAST MEDICAL HISTORY: Review of patient's family history indicates: Problem: Stroke Relation: Father Name: Age of Onset: (Not Specified) Problem: Obesity Relation: Mother Name: dementia Age of Onset: (Not Specified) Problem: Diabetes Relation: Mother Name: dementia Age of Onset: (Not Specified) Problem: High Blood Pressure Relation: Mother Name: dementia Age of Onset: (Not Specified) Problem: Heart disease Relation: Mother Name: dementia Age of Onset: (Not Specified) Problem: Stroke Relation: Paternal Grandfather Name: Age of Onset: (Not Specified) Problem: High Blood Pressure Relation: Father Name: Age of Onset: (Not Specified) Problem: Diabetes Relation: Father Name: Age of Onset: (Not Specified) Problem: Diabetes Relation: Paternal Grandfather Name: Age of Onset: (Not Specified) Problem: Heart attack Relation: Paternal Grandmother Name: Age of Onset: (Not Specified) Problem: Colon cancer Relation: Neg Hx Name: Age of Onset: (Not Specified) Problem: High Blood Pressure Relation: Brother Name: Age of Onset: (Not Specified) Problem: Cancer Relation: Father Name: Age of Onset: (Not Specified) Comment: bladder Problem: Obesity Relation: Father Name: Age of Onset: (Not Specified) Social History Socioeconomic History Marital status: Single Spouse name: Not on file Number of children: Not on file Years of education: Not on file Highest education level: Not on file Occupational History Not on file Tobacco Use Smoking status: Never Smokeless tobacco: Never Substance and Sexual Activity Alcohol use: No Drug use: No Sexual activity: Not on file Other Topics Concerns: Not on file Social History Narrative Not on file Social Determinants of Health Financial Resource Strain: Not on file Food Insecurity: Not on file Transportation Needs: Not on file Physical Activity: Not on file Stress: Not on file Social Connections: Not on file Intimate Partner Violence: Not on file Housing Stability: Not on file Past Surgical History: No date: CATARACT EXTRACTION; Bilateral 01/29/2018: CHOLECYSTECTOMY Comment: w/ LRYGB and Umbilical Hernia repair - Deepali 09/03/2020: DILATION AND CURETTAGE OF UTERUS Comment: with hysteroscopy 01/29/2018: GASTRIC BYPASS Comment: LRYGB w/ Lap Aggie and Umbilical Hernia repair, Zografakis No date: GASTRIC BYPASS 09/30/2020: HYSTERECTOMY Comment: TLH/BSO; Dr. Cuauhtemoc Stubbs 1979': MOUTH SURGERY Comment: gum removal to expose wisdom teeth 2000: THYROGLOSSAL DUCT EXCISION Comment: [facility]- Dr. Vin Keating No date: THYROIDECTOMY 01/29/2018: UMBILICAL HERNIA REPAIR Comment: w/ LRYGB and Lap Aggie - Zografakis 03/20/2017: UPPER GASTROINTESTINAL ENDOSCOPY Comment: pre op, Deepali 2012: WISDOM TOOTH EXTRACTION Comment: [facility] Past Medical History: No date: Anxiety No date: Asthma No date: Deficiency of nutrient elements No date: Depression No date: Dry eye No date: Fatigue No date: Gastritis No date: GERD (gastroesophageal reflux disease) No date: Glaucoma No date: Glaucoma No date: Hyperlipidemia No date: Hypertension No date: Hypothyroid No date: Hypothyroidism No date: Incontinence No date: Intestinal malabsorption No date: Lymph edema No date: Morbid obesity (HCC) No date: Obstructive sleep apnea No date: PMB (postmenopausal bleeding) No date: Polycystic ovarian syndrome No date: Psoriasis No date: SOB (shortness of breath) on exertion No date: Thyroglossal duct cyst No date: Type 2 diabetes mellitus without complication ([facility] ([facility]) No date: Urinary tract infection No date: Uterine cancer ([facility]) ([facility]) 05/10/2017: Vitamin D deficiency 06/21/2018: Zinc deficiency Current Outpatient Medications on File Prior to Encounter: albuterol 108 (90 Base) MCG/ACT inhaler, Inhale 2 puffs every 6 hours as needed., Disp: , Rfl: atorvastatin (Lipitor) 40 MG tablet, Take by mouth daily., Disp: , Rfl: BD Insulin Syringe U/F 30G X 1/2 0.5 ML misc, 2 times daily with insulin, Disp: 200 each, Rfl: 3 brimonidine (AlphaGAN P) 0.1 % ophthalmic solution, Administer 1 drop into both eyes in the morning and 1 drop at noon and 1 drop in the evening., Disp: , Rfl: carvedilol (Coreg) 12.5 MG tablet, Take 12.5 mg by mouth in the morning and 12.5 mg in the evening. Take with meals., Disp: , Rfl: cholecalciferol (Vitamin D-3) 50 MCG (2000 UT) tablet, Take 2,000 Units by mouth in the morning., Disp: , Rfl: citalopram (CeleXA) 20 MG tablet, Take by mouth Every 24 hours., Disp: , Rfl: Continuous Glucose Sensor (FreeStyle Satya 3 Sensor) [facility], 1 Device every 14 (fourteen) days., Disp: 7 each, Rfl: 3 cyanocobalamin (Vitamin B-12) 1000 MCG tablet, Take 1,000 mcg by mouth 1 (one) time per week., Disp: , Rfl: EPINEPHRINE HCL, ANAPHYLAXIS, IM, Inject into the shoulder, thigh, or buttocks., Disp: , Rfl: fluconazole (Diflucan) 200 MG tablet, Take 1 tablet by mouth daily. PRN yeast infections, Disp: , Rfl: FREESTYLE LITE test strip, 1 each by Other route 4 times daily. As directed, Disp: 400 each, Rfl: 3 glucose 4 g chewable tablet, Chew 16 g if needed for low blood sugar., Disp: , Rfl: hydrocortisone (West-Dmitri) 0.2 % cream, Apply topically every 12 hours., Disp: , Rfl: insulin glargine (Lantus SoloStar) 100 UNIT/ML pen, Inject 16 Units under the skin Nightly., Disp: 15 mL, Rfl: 3 insulin lispro (HumaLOG) 100 UNIT/ML pen injection, Inject 16 Units under the skin daily with supper., Disp: 14.4 mL, Rfl: 3 insulin pen needle 32G x 4 mm [facility], Use as instructed 2 times daily, Disp: 200 each, Rfl: 3 levothyroxine (Synthroid, Levoxyl) 175 MCG tablet, Take 1 tablet (175 mcg) by mouth every morning (before breakfast)., Disp: 90 tablet, Rfl: 3 loperamide (Imodium) 2 MG capsule, Take 2 mg by mouth as needed for diarrhea., Disp: , Rfl: mirabegron ER (Myrbetriq) 50 MG 24 hr tablet, Every 24 hours. PRN, Disp: , Rfl: multivitamin, Pediatric, (Flintstones Gummies) chewable tablet, Chew 2 tablets. With iron, Disp: , Rfl: olmesartan (BENIcar) 40 MG tablet, Take 1 tablet (40 mg) by mouth daily., Disp: 90 tablet, Rfl: 3 PROTEIN PO, Take by mouth., Disp: , Rfl: sulfamethoxazole-trimethoprim (Bactrim DS) 800-160 MG tablet, Take 1 tablet by mouth in the morning and 1 tablet in the evening., Disp: , Rfl: timolol (Timoptic) 0.5 % ophthalmic solution, Administer 1 drop into both eyes in the morning and 1 drop in the evening., Disp: , Rfl: triamcinolone (Kenalog) 0.1 % cream, Apply to affected area 1-2 times daily as needed. Avoid face and groin., Disp: 30 g, Rfl: 2 Current Facility-Administered Medications on File Prior to Encounter: triamcinolone (Kenalog) 0.1 % cream, , Topical, Once, Jerome Perdomo MD Allergies as of 02/27/2024 - Reviewed 02/27/2024 -- Bimatoprost -- Other -- noted 05/06/2018 -- Doxycycline -- Hives -- noted 05/24/2022 -- Erythromycin -- Hives -- noted 05/24/2022 -- Levaquin [levofloxacin] -- Hives -- noted 05/24/2022 -- Macrobid [nitrofurantoin] -- Hives -- noted 05/24/2022 -- Penicillins -- Hives -- noted 05/24/2022 -- Levofloxacin in d5w -- Swelling -- noted 03/01/2015 -- Macrolides and ketolides -- Hives -- noted 02/27/2004 -- Molds & smuts -- Itching -- noted 03/24/2015 -- Nitrofurantoin monohyd macro -- Itching -- noted 12/22/2014 -- Other -- Itching -- noted 02/11/2013 PHYSICAL EXAM: Blood pressure (!) 202/95, pulse 80, temperature 36.4 C (97.5 F), temperature source Infrared, resp. rate 18. Gen: A and O x 3, NAD, well nourished Eyes: Sclera non icterus, PERRL Head: Normocephalic, non-tender Neck: Supple, no adenopathy, thyroid non tender and no masses,no carotid bruits Lungs: CTA, symmetrical Chest: RRR, no murmurs Abd: Soft, NT, ND, no HSM, no hernias, no bruits Ext: No edema, no cyanosis Psych: reveals appropriate mood, memory and judgment, Neuro: Reveals no gross motor or sensory deficits, Msk: 5/5 strength all 4 extremities, no joint tenderness Vascular: Pulses Fem + Pop DP/PT + Assessment: BP (!) 202/95 (BP Location: Left arm, Patient Position: Sitting, BP Cuff Size: Adult) Pulse 80 Temp 36.4 C (97.5 F) (Infrared) Resp 18 Wound Reference Date is when first assessed. Measurements shown are from today's visit. Wound BP (!) 202/95 (BP Location: Left arm, Patient Position: Sitting, BP Cuff Size: Adult) Pulse 80 Temp 36.4 C (97.5 F) (Infrared) Resp 18 Wound : see CAHUILLA IMPRESSION:Lymphedema (primary encounter diagnosis) Plan: Plan for wound - Treatment: see orders Discussed appropriate home care of this wound. Wound redressed. Patient instructions were given. Follow up: as per protocol documented in this encounter [facility] 02-27-2024 Hospital Discharge instructions Zayda Bradford RN - 02/27/2024 10:45 AM EDT Nurse visit in [address] Perdomo in 2 weeks Triamcinolone to areas on legs along with Xeroform if needed ABD pads to upper legs Elevate legs to the level of the heart or above for 30 minutes daily and/or when sitting, a frequency of: as much as possible Unna Boot: Do not remove Unna Boot. Keep dry. If pain or swelling or discoloration of toes noted, elevate legs above level of heart for 1 hour. If no relief, call the center. If unable to reach center, remove boot and keep leg elevated until contact with center can be made. Multilayer Compression Therapy - 4 layers: Do not get legs with compression wrap wet. If wraps seem too tight, elevate legs above level of heart for one hour. If no relief, call the wound center. documented in this encounter [facility] 02-27-2024 Miscellaneous Notes Encounter addended by: Piter Valdez MA on: 02/27/2024 2:30 PM Actions taken: Follow-up modified documented in this encounter [facility] 02-27-2024 Note Encounter addended b y: Piter Valdez MA on: 02/27/2024 2:30 PM Actions taken: Follow-up modified [facility] 02-27-2024 Note Encounter addended b y: Piter Valdez MA on: 02/27/2024 2:30 PM Actions taken: Follow-up modified [facility] 02-27-2024 Note Encounter addended b y: Piter Valdez MA on: 02/27/2024 2:30 PM Actions taken: Follow-up modified [facility] 02-13-2024 History of Present illness Narrative [facility] Nurse Visit Note Dameon Potter AGE: 69 y.o. GENDER: female : 1955 EPISODE DATE: 02/13/24 Arrival Information: Patient Arrived: Walker Transfer Assistance: None Accompanied by: self Any changes in medical history since last visit: No Added or removed any Medications: No Any new allergies: No Any falls since last visit: No Any hospitalizations or surgeries since last visit: No Assessment: Vitals: 02/13/24 1343 BP: (!) 185/96 Pulse: 70 Resp: 16 Temp: 36.6 C (97.8 F) Treatment: Wound: no open wounds Patient was seen for a nurse visit to have profores changed. Dressing was removed. Legs were cleansed with soap and water, triamcinolone was applied to periwound, unna boots with 4 layer compression wrap was applied per provider's orders. To be completed if only a dressing was applied: Discharge Information: Patient was discharged in stable condition. Ambulatory Status: Walker Discharge Destination: home Transportation: Private Auto Accompanied by: patient Schedule Follow up Appointment: no No orders of the defined types were placed in this encounter. documented in this encounter [facility] 01-30-2024 History of Present illness Narrative INITIAL VISIT - WOUND CARE Dameon Potter AGE: 69 y.o. GENDER: female : 1955 TODAY'S DATE: 01/30/2024 HISTORY OF PRESENT ILLNESS: Dameon Potter is a 69 y.o. female who presents today for check up. No new issues. Mild stasis dermatitis of thigh right. Lymphedema controlled with wraps. Wound Location : left, right, and leg The patients pain is Problem list: Patient Active Problem List: Endometrial cancer (CMS/HCC) (HCC) Obesity with body mass index greater than 30 OAB (overactive bladder) Uncontrolled type 2 diabetes mellitus with hyperglycemia, with long-term current use of insulin (HCC) Deficiency of nutrient elements Zinc deficiency Lymphedema Hepatic steatosis Calculus of gallbladder with chronic cholecystitis without obstruction Vitamin D deficiency Intestinal malabsorption Morbid obesity (HCC) Hypothyroidism Essential hypertension, benign Mixed hyperlipidemia Fatigue Obstructive sleep apnea SOB (shortness of breath) on exertion Gastritis without bleeding PND (post-nasal drip) Gastroesophageal reflux disease without esophagitis Asthma without status asthmaticus Candidal vulvovaginitis Cardiomegaly Cortical cataract of both eyes Diabetic retinopathy associated with type 2 diabetes mellitus (HCC) Diastolic dysfunction Dry eye syndrome of bilateral lacrimal glands Malignant neoplasm of uterus (HCC) Malnutrition of mild degree (Bianchi: 75% to less than 90% of standard weight) (HCC) Moderate recurrent major depression (HCC) Nuclear sclerotic cataract, bilateral Polycystic ovaries Posterior subcapsular age-related cataract of left eye Postmenopausal bleeding Primary open angle glaucoma of both eyes, mild stage Refractive error Chronic sinusitis Thyroglossal duct cyst Type 2 diabetes mellitus with hyperglycemia (HCC) Corneal epithelial basement membrane dystrophy Uncontrolled type 2 diabetes mellitus Non-pressure chronic ulcer left lower leg, 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) Hypertension Lymphedema of both lower extremities MDD (major depressive disorder) Urinary incontinence Asthma Vaginal candidiasis Chronic rhinitis DM retinopathy (HCC) Diastolic heart failure (HCC) HLD (hyperlipidemia) RADHA (obstructive sleep apnea) Polycystic ovarian syndrome Open-angle glaucoma Review of Systems: General: Fever: Negative Night Sweats: Negative Eye: Blurry Vision:Negative Double Vision: Negative Ent: Headaches: Negative Sore throat: Negative Ear pain or drainage: Negative Allergy/Immunology: Hives: Negative Hematology/Lymphatic: Bleeding Problems: Negative Blood Clots: Negative Swollen Lymph Nodes: Negative Lungs: Cough: Negative SOB: Negative Cardiovascular: Chest Pain: Negative Palpitations:Negative GI: Nausea/Vomiting: Negative Abdominal Pain: Negative Change in Bowels: Negative : Dysuria: Negative Increase Urinary Frequency/Urgency: Negative Neuro: Seizures: Negative Confusion: Negative PAST MEDICAL HISTORY: Review of patient's family history indicates: Problem: Stroke Relation: Father Name: Age of Onset: (Not Specified) Problem: Obesity Relation: Mother Name: dementia Age of Onset: (Not Specified) Problem: Diabetes Relation: Mother Name: dementia Age of Onset: (Not Specified) Problem: High Blood Pressure Relation: Mother Name: dementia Age of Onset: (Not Specified) Problem: Heart disease Relation: Mother Name: dementia Age of Onset: (Not Specified) Problem: Stroke Relation: Paternal Grandfather Name: Age of Onset: (Not Specified) Problem: High Blood Pressure Relation: Father Name: Age of Onset: (Not Specified) Problem: Diabetes Relation: Father Name: Age of Onset: (Not Specified) Problem: Diabetes Relation: Paternal Grandfather Name: Age of Onset: (Not Specified) Problem: Heart attack Relation: Paternal Grandmother Name: Age of Onset: (Not Specified) Problem: Colon cancer Relation: Neg Hx Name: Age of Onset: (Not Specified) Problem: High Blood Pressure Relation: Brother Name: Age of Onset: (Not Specified) Problem: Cancer Relation: Father Name: Age of Onset: (Not Specified) Comment: bladder Problem: Obesity Relation: Father Name: Age of Onset: (Not Specified) Social History Socioeconomic History Marital status: Single Spouse name: Not on file Number of children: Not on file Years of education: Not on file Highest education level: Not on file Occupational History Not on file Tobacco Use Smoking status: Never Smokeless tobacco: Never Substance and Sexual Activity Alcohol use: No Drug use: No Sexual activity: Not on file Other Topics Concerns: Not on file Social History Narrative Not on file Social Determinants of Health Financial Resource Strain: Not on file Food Insecurity: Not on file Transportation Needs: Not on file Physical Activity: Not on file Stress: Not on file Social Connections: Not on file Intimate Partner Violence: Not on file Housing Stability: Not on file Past Surgical History: No date: CATARACT EXTRACTION; Bilateral 01/29/2018: CHOLECYSTECTOMY Comment: w/ LRYGB and Umbilical Hernia repair - Zografakis 09/03/2020: DILATION AND CURETTAGE OF UTERUS Comment: with hysteroscopy 01/29/2018: GASTRIC BYPASS Comment: LRYGB w/ Lap Aggie and Umbilical Hernia repair, Zografakis No date: GASTRIC BYPASS 09/30/2020: HYSTERECTOMY Comment: TLH/BSO; Dr. Cuauhtemoc Stubbs 1979's: MOUTH SURGERY Comment: gum removal to expose wisdom teeth 2000: THYROGLOSSAL DUCT EXCISION Comment: [facility]- Dr. Vin Keating No date: THYROIDECTOMY 01/29/2018: UMBILICAL HERNIA REPAIR Comment: w/ LRYGB and Lap Aggie - Zografakis 03/20/2017: UPPER GASTROINTESTINAL ENDOSCOPY Comment: pre opDeepali 2012: WISDOM TOOTH EXTRACTION Comment: [facility] Past Medical History: No date: Anxiety No date: Asthma No date: Deficiency of nutrient elements No date: Depression No date: Dry eye No date: Fatigue No date: Gastritis No date: GERD (gastroesophageal reflux disease) No date: Glaucoma No date: Glaucoma No date: Hyperlipidemia No date: Hypertension No date: Hypothyroid No date: Hypothyroidism No date: Incontinence No date: Intestinal malabsorption No date: Lymph edema No date: Morbid obesity (HCC) No date: Obstructive sleep apnea No date: PMB (postmenopausal bleeding) No date: Polycystic ovarian syndrome No date: Psoriasis No date: SOB (shortness of breath) on exertion No date: Thyroglossal duct cyst No date: Type 2 diabetes mellitus without complication ([facility] ([facility]) No date: Urinary tract infection No date: Uterine cancer ([facility] ([facility]) 05/10/2017: Vitamin D deficiency 06/21/2018: Zinc deficiency Current Outpatient Medications on File Prior to Encounter: albuterol 108 (90 Base) MCG/ACT inhaler, Inhale 2 puffs every 6 hours as needed., Disp: , Rfl: atorvastatin (Lipitor) 40 MG tablet, Take by mouth daily., Disp: , Rfl: BD Insulin Syringe U/F 30G X 1/2 0.5 ML misc, 2 times daily with insulin, Disp: 200 each, Rfl: 3 brimonidine (AlphaGAN P) 0.1 % ophthalmic solution, Administer 1 drop into both eyes in the morning and 1 drop at noon and 1 drop in the evening., Disp: , Rfl: carvedilol (Coreg) 12.5 MG tablet, Take 12.5 mg by mouth in the morning and 12.5 mg in the evening. Take with meals., Disp: , Rfl: cholecalciferol (Vitamin D-3) 50 MCG (2000 UT) tablet, Take 2,000 Units by mouth in the morning., Disp: , Rfl: citalopram (CeleXA) 20 MG tablet, Take by mouth Every 24 hours., Disp: , Rfl: Continuous Glucose Sensor (FreeStyle Satya 3 Sensor) [facility], 1 Device every 14 (fourteen) days., Disp: 7 each, Rfl: 3 cyanocobalamin (Vitamin B-12) 1000 MCG tablet, Take 1,000 mcg by mouth 1 (one) time per week., Disp: , Rfl: EPINEPHRINE HCL, ANAPHYLAXIS, IM, Inject into the shoulder, thigh, or buttocks., Disp: , Rfl: fluconazole (Diflucan) 200 MG tablet, Take 1 tablet by mouth daily. PRN yeast infections, Disp: , Rfl: FREESTYLE LITE test strip, 1 each by Other route 4 times daily. As directed, Disp: 400 each, Rfl: 3 glucose 4 g chewable tablet, Chew 16 g if needed for low blood sugar., Disp: , Rfl: hydrocortisone (West-Dmitri) 0.2 % cream, Apply topically every 12 hours., Disp: , Rfl: insulin glargine (Lantus SoloStar) 100 UNIT/ML pen, Inject 16 Units under the skin Nightly., Disp: 15 mL, Rfl: 3 insulin lispro (HumaLOG) 100 UNIT/ML pen injection, Inject 16 Units under the skin daily with supper., Disp: 14.4 mL, Rfl: 3 insulin pen needle 32G x 4 mm misc, Use as instructed 2 times daily, Disp: 200 each, Rfl: 3 levothyroxine (Synthroid, Levoxyl) 175 MCG tablet, Take 1 tablet (175 mcg) by mouth every morning (before breakfast)., Disp: 90 tablet, Rfl: 3 loperamide (Imodium) 2 MG capsule, Take 2 mg by mouth as needed for diarrhea., Disp: , Rfl: mirabegron ER (Myrbetriq) 50 MG 24 hr tablet, Every 24 hours. PRN, Disp: , Rfl: multivitamin, Pediatric, (Flintstones Gummies) chewable tablet, Chew 2 tablets. With iron, Disp: , Rfl: olmesartan (BENIcar) 40 MG tablet, Take 1 tablet (40 mg) by mouth daily., Disp: 90 tablet, Rfl: 3 PROTEIN PO, Take by mouth., Disp: , Rfl: sulfamethoxazole-trimethoprim (Bactrim DS) 800-160 MG tablet, Take 1 tablet by mouth in the morning and 1 tablet in the evening., Disp: , Rfl: timolol (Timoptic) 0.5 % ophthalmic solution, Administer 1 drop into both eyes in the morning and 1 drop in the evening., Disp: , Rfl: triamcinolone (Kenalog) 0.1 % cream, Apply to affected area 1-2 times daily as needed. Avoid face and groin., Disp: 30 g, Rfl: 2 Current Facility-Administered Medications on File Prior to Encounter: triamcinolone (Kenalog) 0.1 % cream, , Topical, Once, Jerome Perdomo MD Allergies as of 01/30/2024 - Reviewed 01/30/2024 -- Bimatoprost -- Other -- noted 05/06/2018 -- Doxycycline -- Hives -- noted 05/24/2022 -- Erythromycin -- Hives -- noted 05/24/2022 -- Levaquin [levofloxacin] -- Hives -- noted 05/24/2022 -- Macrobid [nitrofurantoin] -- Hives -- noted 05/24/2022 -- Penicillins -- Hives -- noted 05/24/2022 -- Levofloxacin in d5w -- Swelling -- noted 03/01/2015 -- Macrolides and ketolides -- Hives -- noted 02/27/2004 -- Molds & smuts -- Itching -- noted 03/24/2015 -- Nitrofurantoin monohyd macro -- Itching -- noted 12/22/2014 -- Other -- Itching -- noted 02/11/2013 PHYSICAL EXAM: Blood pressure (!) 180/97, pulse 74, temperature 36.9 C (98.4 F), resp. rate 18. Gen: A and O x 3, NAD, well nourished Eyes: Sclera non icterus, PERRL Head: Normocephalic, non-tender Neck: Supple, no adenopathy, thyroid non tender and no masses,no carotid bruits Lungs: CTA, symmetrical Chest: RRR, no murmurs Abd: Soft, NT, ND, no HSM, no hernias, no bruits Ext: No edema, no cyanosis Psych: reveals appropriate mood, memory and judgment, Neuro: Reveals no gross motor or sensory deficits, Msk: 5/5 strength all 4 extremities, no joint tenderness Vascular: Pulses Fem + Pop DP/PT Assessment: BP (!) 180/97 Pulse 74 Temp 36.9 C (98.4 F) Resp 18 Wound Reference Date is when first assessed. Measurements shown are from today's visit. Wound BP (!) 180/97 Pulse 74 Temp 36.9 C (98.4 F) Resp 18 Wound See CAHUILLA IMPRESSION:Lymphedema of both lower extremities (primary encounter diagnosis) Plan: Plan for wound - Treatment: see orders Discussed appropriate home care of this wound. Wound redressed. Patient instructions were given. Follow up: per protocol documented in this encounter [facility] 01-30-2024 Hospital Discharge instructions Zayda Bradford RN - 01/30/2024 11:00 AM EDT Nurse visit in [address] Perdomo in 2 weeks Triamcinolone to areas on legs along with Xeroform if needed ABD pads to upper legs Elevate legs to the level of the heart or above for 30 minutes daily and/or when sitting, a frequency of: as much as possible Unna Boot: Do not remove Unna Boot. Keep dry. If pain or swelling or discoloration of toes noted, elevate legs above level of heart for 1 hour. If no relief, call the center. If unable to reach center, remove boot and keep leg elevated until contact with center can be made. Multilayer Compression Therapy - 4 layers: Do not get legs with compression wrap wet. If wraps seem too tight, elevate legs above level of heart for one hour. If no relief, call the wound center. documented in this encounter [facility] 01-17-2024 Telephone encounter Note Pt home nurse called. She states patient needs an urgent referral for behavioral health or counseling. The patient is under a lot of stress with recent thoughts of self harm/suicide. She was fine today, she is not concerned at the moment. The patient is open to a referral. Jasvir spoke with the patient about medication management for depression or anxiety and the patient refused at this time. She currently has no active plans of suicide or self harm, but has has in the last few weeks. Patient nurse advised she will be faxing over a report by end of day. If you have any questions or concerns she can be reached [phone]. [facility] 01-17-2024 Miscellaneous Notes Pt home nurse called. She states patient needs an urgent referral for behavioral health or counseling. The patient is under a lot of stress with recent thoughts of self harm/suicide. She was fine today, she is not concerned at the moment. The patient is open to a referral. Jasvir spoke with the patient about medication management for depression or anxiety and the patient refused at this time. She currently has no active plans of suicide or self harm, but has has in the last few weeks. Patient nurse advised she will be faxing over a report by end of day. If you have any questions or concerns she can be reached [phone]. documented in this encounter [facility] 01-16-2024 History of Present illness Narrative [facility] W[facility] Nurse Visit Note Dameon Potter AGE: 69 y.o. GENDER: female : 1955 EPISODE DATE: 01/16/24 Arrival Information: Patient Arrived: Walker Transfer Assistance: None Accompanied by: self Any changes in medical history since last visit: No Added or removed any Medications: No Any new allergies: No Any falls since last visit: No Any hospitalizations or surgeries since last visit: No Assessment: Vitals: 01/16/24 1547 BP: (!) 162/82 Pulse: 70 Resp: 20 Temp: 36.6 C (97.9 F) Treatment: Wound: BLE Patient was seen for a nurse visit to have BLE compression changed. Dressing was removed. Wound was cleansed with soap and water, triamcinolone was applied to periwound, xeroform, kerlex dressing was applied to wound, unna boot 4-layer compression wrap was applied per provider's orders. Discharge Information: Patient was discharged in stable condition. Ambulatory Status: Walker Discharge Destination: home Transportation: Private Auto Accompanied by: patient Schedule Follow up Appointment: yes No orders of the defined types were placed in this encounter. documented in this encounter [facility] 01-16-2024 History of Present illness Narrative [facility] Nurse Visit Note Dameon Potter AGE: 69 y.o. GENDER: female : 1955 EPISODE DATE: 01/16/24 Arrival Information: Patient Arrived: Walker Transfer Assistance: None Accompanied by: self Any changes in medical history since last visit: No Added or removed any Medications: No Any new allergies: No Any falls since last visit: No Any hospitalizations or surgeries since last visit: No Assessment: Vitals: 01/16/24 1547 BP: (!) 162/82 Pulse: 70 Resp: 20 Temp: 36.6 C (97.9 F) Treatment: Wound: BLE Patient was seen for a nurse visit to have BLE compression changed. Dressing was removed. Wound was cleansed with soap and water, triamcinolone was applied to periwound, xeroform, kerlex dressing was applied to wound, unna boot 4-layer compression wrap was applied per provider's orders. Discharge Information: Patient was discharged in stable condition. Ambulatory Status: Walker Discharge Destination: home Transportation: Private Auto Accompanied by: patient Schedule Follow up Appointment: yes No orders of the defined types were placed in this encounter. documented in this encounter [facility] 01-16-2024 Miscellaneous Notes Encounter addended by: Mackenzie Avitia RN on: 01/18/2024 2:53 PM Actions taken: Episode edited, Charge Capture section accepted documented in this encounter [facility] 01-16-2024 Note Encounter addended b y: Mackenzie Avitia RN on: 01/18/2024 2:53 PM Actions taken: Episode edited, Charge Capture section accepted [facility] 2024 History of Present illness Narrative INITIAL VISIT - WOUND CARE Dameon Potter AGE: 68 y.o. GENDER: female : 1955 TODAY'S DATE: 2024 HISTORY OF PRESENT ILLNESS: Dameon Potter is a 68 y.o. female who presents today for checkup. Lymphedema controlled. Has mild dermatitis, likely heat related. Will treat. No other major c/o's or open area. Wound Location : left, right, and leg The patients pain is Problem list: Patient Active Problem List: Endometrial cancer (CMS/HCC) (HCC) Obesity with body mass index greater than 30 OAB (overactive bladder) Uncontrolled type 2 diabetes mellitus with hyperglycemia, with long-term current use of insulin (HCC) Deficiency of nutrient elements Zinc deficiency Lymphedema Hepatic steatosis Calculus of gallbladder with chronic cholecystitis without obstruction Vitamin D deficiency Intestinal malabsorption Morbid obesity (HCC) Hypothyroidism Essential hypertension, benign Mixed hyperlipidemia Fatigue Obstructive sleep apnea SOB (shortness of breath) on exertion Gastritis without bleeding PND (post-nasal drip) Gastroesophageal reflux disease without esophagitis Asthma without status asthmaticus Candidal vulvovaginitis Cardiomegaly Cortical cataract of both eyes Diabetic retinopathy associated with type 2 diabetes mellitus (HCC) Diastolic dysfunction Dry eye syndrome of bilateral lacrimal glands Malignant neoplasm of uterus (HCC) Malnutrition of mild degree (Bianchi: 75% to less than 90% of standard weight) (HCC) Moderate recurrent major depression (HCC) Nuclear sclerotic cataract, bilateral Polycystic ovaries Posterior subcapsular age-related cataract of left eye Postmenopausal bleeding Primary open angle glaucoma of both eyes, mild stage Refractive error Chronic sinusitis Thyroglossal duct cyst Type 2 diabetes mellitus with hyperglycemia (HCC) Corneal epithelial basement membrane dystrophy Uncontrolled type 2 diabetes mellitus Non-pressure chronic ulcer left lower leg, 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) Hypertension Lymphedema of both lower extremities MDD (major depressive disorder) Urinary incontinence Asthma Vaginal candidiasis Chronic rhinitis DM retinopathy (HCC) Diastolic heart failure (HCC) HLD (hyperlipidemia) RADHA (obstructive sleep apnea) Polycystic ovarian syndrome Open-angle glaucoma Review of Systems: General: Fever: Negative Night Sweats: Negative Eye: Blurry Vision:Negative Double Vision: Negative Ent: Headaches: Negative Sore throat: Negative Ear pain or drainage: Negative Allergy/Immunology: Hives: Negative Hematology/Lymphatic: Bleeding Problems: Negative Blood Clots: Negative Swollen Lymph Nodes: Negative Lungs: Cough: Negative SOB: Negative Cardiovascular: Chest Pain: Negative Palpitations:Negative GI: Nausea/Vomiting: Negative Abdominal Pain: Negative Change in Bowels: Negative : Dysuria: Negative Increase Urinary Frequency/Urgency: Negative Neuro: Seizures: Negative Confusion: Negative PAST MEDICAL HISTORY: Review of patient's family history indicates: Problem: Stroke Relation: Father Name: Age of Onset: (Not Specified) Problem: Obesity Relation: Mother Name: dementia Age of Onset: (Not Specified) Problem: Diabetes Relation: Mother Name: dementia Age of Onset: (Not Specified) Problem: High Blood Pressure Relation: Mother Name: dementia Age of Onset: (Not Specified) Problem: Heart disease Relation: Mother Name: dementia Age of Onset: (Not Specified) Problem: Stroke Relation: Paternal Grandfather Name: Age of Onset: (Not Specified) Problem: High Blood Pressure Relation: Father Name: Age of Onset: (Not Specified) Problem: Diabetes Relation: Father Name: Age of Onset: (Not Specified) Problem: Diabetes Relation: Paternal Grandfather Name: Age of Onset: (Not Specified) Problem: Heart attack Relation: Paternal Grandmother Name: Age of Onset: (Not Specified) Problem: Colon cancer Relation: Neg Hx Name: Age of Onset: (Not Specified) Problem: High Blood Pressure Relation: Brother Name: Age of Onset: (Not Specified) Problem: Cancer Relation: Father Name: Age of Onset: (Not Specified) Comment: bladder Problem: Obesity Relation: Father Name: Age of Onset: (Not Specified) Social History Socioeconomic History Marital status: Single Spouse name: Not on file Number of children: Not on file Years of education: Not on file Highest education level: Not on file Occupational History Not on file Tobacco Use Smoking status: Never Smokeless tobacco: Never Substance and Sexual Activity Alcohol use: No Drug use: No Sexual activity: Not on file Other Topics Concerns: Not on file Social History Narrative Not on file Social Determinants of Health Financial Resource Strain: Not on file Food Insecurity: Not on file Transportation Needs: Not on file Physical Activity: Not on file Stress: Not on file Social Connections: Not on file Intimate Partner Violence: Not on file Housing Stability: Not on file Past Surgical History: No date: CATARACT EXTRACTION; Bilateral 01/29/2018: CHOLECYSTECTOMY Comment: w/ LRYGB and Umbilical Hernia repair - [facility] 09/03/2020: DILATION AND CURETTAGE OF UTERUS Comment: with hysteroscopy 01/29/2018: GASTRIC BYPASS Comment: LRYGB w/ Lap Aggie and [facility] No date: GASTRIC BYPASS 09/30/2020: HYSTERECTOMY Comment: TLH/BSO; Dr. Cuauhtemoc Stubbs : MOUTH SURGERY Comment: gum removal to expose wisdom teeth 2000: THYROGLOSSAL DUCT EXCISION Comment: [facility]- Dr. Vin Keating No date: THYROIDECTOMY 01/29/2018: UMBILICAL HERNIA REPAIR Comment: w/ LRYGB and Lap Aggie - [facility] 03/20/2017: UPPER GASTROINTESTINAL ENDOSCOPY Comment: pre op, Deepali 2012: WISDOM TOOTH EXTRACTION Comment: [facility] Past Medical History: No date: Anxiety No date: Asthma No date: Deficiency of nutrient elements No date: Depression No date: Dry eye No date: Fatigue No date: Gastritis No date: GERD (gastroesophageal reflux disease) No date: Glaucoma No date: Glaucoma No date: Hyperlipidemia No date: Hypertension No date: Hypothyroid No date: Hypothyroidism No date: Incontinence No date: Intestinal malabsorption No date: Lymph edema No date: Morbid obesity (HCC) No date: Obstructive sleep apnea No date: PMB (postmenopausal bleeding) No date: Polycystic ovarian syndrome No date: Psoriasis No date: SOB (shortness of breath) on exertion No date: Thyroglossal duct cyst No date: Type 2 diabetes mellitus without complication ([facility]) ([facility]) No date: Urinary tract infection No date: Uterine cancer ([facility]) ([facility]) 05/10/2017: Vitamin D deficiency 06/21/2018: Zinc deficiency Current Outpatient Medications on File Prior to Encounter: albuterol 108 (90 Base) MCG/ACT inhaler, Inhale 2 puffs every 6 hours as needed., Disp: , Rfl: atorvastatin (Lipitor) 40 MG tablet, Take by mouth daily., Disp: , Rfl: BD Insulin Syringe U/F 30G X 1/2 0.5 ML misc, 2 times daily with insulin, Disp: 200 each, Rfl: 3 brimonidine (AlphaGAN P) 0.1 % ophthalmic solution, Administer 1 drop into both eyes in the morning and 1 drop at noon and 1 drop in the evening., Disp: , Rfl: carvedilol (Coreg) 12.5 MG tablet, Take 12.5 mg by mouth in the morning and 12.5 mg in the evening. Take with meals., Disp: , Rfl: cholecalciferol (Vitamin D-3) 50 MCG (1999 UT) tablet, Take 2,000 Units by mouth in the morning., Disp: , Rfl: citalopram (CeleXA) 20 MG tablet, Take by mouth Every 24 hours., Disp: , Rfl: Continuous Glucose Sensor (FreeStyle Satya 3 Sensor) [facility], 1 Device every 14 (fourteen) days., Disp: 7 each, Rfl: 3 cyanocobalamin (Vitamin B-12) 1000 MCG tablet, Take 1,000 mcg by mouth 1 (one) time per week., Disp: , Rfl: EPINEPHRINE HCL, ANAPHYLAXIS, IM, Inject into the shoulder, thigh, or buttocks., Disp: , Rfl: fluconazole (Diflucan) 200 MG tablet, Take 1 tablet by mouth daily. PRN yeast infections, Disp: , Rfl: FREESTYLE LITE test strip, 1 each by Other route 4 times daily. As directed, Disp: 400 each, Rfl: 3 glucose 4 g chewable tablet, Chew 16 g if needed for low blood sugar., Disp: , Rfl: hydrocortisone (West-Dmitri) 0.2 % cream, Apply topically every 12 hours., Disp: , Rfl: insulin glargine (Lantus SoloStar) 100 UNIT/ML pen, Inject 16 Units under the skin Nightly., Disp: 15 mL, Rfl: 3 insulin lispro (HumaLOG) 100 UNIT/ML pen injection, Inject 16 Units under the skin daily with supper., Disp: 14.4 mL, Rfl: 3 insulin pen needle 32G x 4 mm [facility], Use as instructed 2 times daily, Disp: 200 each, Rfl: 3 levothyroxine (Synthroid, Levoxyl) 175 MCG tablet, Take 1 tablet (175 mcg) by mouth every morning (before breakfast)., Disp: 90 tablet, Rfl: 3 loperamide (Imodium) 2 MG capsule, Take 2 mg by mouth as needed for diarrhea., Disp: , Rfl: mirabegron ER (Myrbetriq) 50 MG 24 hr tablet, Every 24 hours. PRN, Disp: , Rfl: multivitamin, Pediatric, (Flintstones Gummies) chewable tablet, Chew 2 tablets. With iron, Disp: , Rfl: olmesartan (BENIcar) 40 MG tablet, Take 1 tablet (40 mg) by mouth daily., Disp: 90 tablet, Rfl: 3 PROTEIN PO, Take by mouth., Disp: , Rfl: sulfamethoxazole-trimethoprim (Bactrim DS) 800-160 MG tablet, Take 1 tablet by mouth in the morning and 1 tablet in the evening., Disp: , Rfl: timolol (Timoptic) 0.5 % ophthalmic solution, Administer 1 drop into both eyes in the morning and 1 drop in the evening., Disp: , Rfl: [DISCONTINUED] triamcinolone (Kenalog) 0.1 % cream, Apply to affected area 1-2 times daily as needed. Avoid face and groin., Disp: 30 g, Rfl: 2 Current Facility-Administered Medications on File Prior to Encounter: triamcinolone (Kenalog) 0.1 % cream, , Topical, Once, Jeromeniurka Perdomo MD Allergies as of 2024 - Reviewed 2024 -- Bimatoprost -- Other -- noted 05/06/2018 -- Doxycycline -- Hives -- noted 05/24/2022 -- Erythromycin -- Hives -- noted 05/24/2022 -- Levaquin [levofloxacin] -- Hives -- noted 05/24/2022 -- Macrobid [nitrofurantoin] -- Hives -- noted 05/24/2022 -- Penicillins -- Hives -- noted 05/24/2022 -- Levofloxacin in d5w -- Swelling -- noted 03/01/2015 -- Macrolides and ketolides -- Hives -- noted 02/27/2004 -- Molds & smuts -- Itching -- noted 03/24/2015 -- Nitrofurantoin monohyd macro -- Itching -- noted 12/22/2014 -- Other -- Itching -- noted 02/11/2013 PHYSICAL EXAM: Blood pressure (!) 155/74, pulse 74, temperature 36.4 C (97.6 F), temperature source Infrared, resp. rate 18. Gen: A and O x 3, NAD, well nourished Eyes: Sclera non icterus, PERRL Head: Normocephalic, non-tender Neck: Supple, no adenopathy, thyroid non tender and no masses,no carotid bruits Lungs: CTA, symmetrical Chest: RRR, no murmurs Abd: Soft, NT, ND, no HSM, no hernias, no bruits Ext: No edema, no cyanosis Psych: reveals appropriate mood, memory and judgment, Neuro: Reveals no gross motor or sensory deficits, Msk: 5/5 strength all 4 extremities, no joint tenderness Vascular: Pulses Fem + Pop DP/PT + Assessment: BP (!) 155/74 (BP Location: Right arm, Patient Position: Sitting, BP Cuff Size: Adult long) Pulse 74 Temp 36.4 C (97.6 F) (Infrared) Resp 18 Wound Reference Date is when first assessed. Measurements shown are from today's visit. Wound BP (!) 155/74 (BP Location: Right arm, Patient Position: Sitting, BP Cuff Size: Adult long) Pulse 74 Temp 36.4 C (97.6 F) (Infrared) Resp 18 Wound : see CAHUILLA IMPRESSION:Lymphedema (primary encounter diagnosis) Plan: Plan for wound - Treatment: see orders Discussed appropriate home care of this wound. Wound redressed. Patient instructions were given. Follow up: per protocol documented in this encounter [facility] 2024 Hospital Discharge instructions Zayda Bradford RN - 2024 11:00 AM EDT Nurse visit in [address] Perdomo in 2 weeks Triamcinolone to areas on legs along with Xeroform if needed ABD pads to upper legs Elevate legs to the level of the heart or above for 30 minutes daily and/or when sitting, a frequency of: as much as possible Unna Boot: Do not remove Unna Boot. Keep dry. If pain or swelling or discoloration of toes noted, elevate legs above level of heart for 1 hour. If no relief, call the center. If unable to reach center, remove boot and keep leg elevated until contact with center can be made. Multilayer Compression Therapy - 4 layers: Do not get legs with compression wrap wet. If wraps seem too tight, elevate legs above level of heart for one hour. If no relief, call the wound center. [facility] Tele[facility] encounter Note Called patient niece due to being unable to get a hold of the patient. Patient's niece is her power of document review attorney. I did explain that her CT scan looks good radiology informed me that no further biopsy or treatment needs done. Verbalizes understanding. Encouraged to call back with any questions or concerns [facility] 12-31-2023 Miscellaneous Notes Called patient niece due to being unable to get a hold of the patient. Patient's niece is her power of document review attorney. I did explain that her CT scan looks good radiology informed me that no further biopsy or treatment needs done. Verbalizes understanding. Encouraged to call back with any questions or concerns documented in this encounter [facility] 12-31-2023 Telephone encounter Note Called patient and attempted to leave a message but her memory box was full. I did speak with radiologist and he did not recommend doing a biopsy on the and inguinal node. I will try and call back. [facility] 12-31-2023 Miscellaneous Notes Called patient and attempted to leave a message but her memory box was full. I did speak with radiologist and he did not recommend doing a biopsy on the and inguinal node. I will try and call back. documented in this encounter [facility] 12-20-2023 History of Present illness Narrative [facility] Nurse Visit Note Dameon Potter AGE: 68 y.o. GENDER: female : 1955 EPISODE DATE: 12/20/23 Arrival Information: Patient Arrived: Walker Transfer Assistance: None Accompanied by: self Any changes in medical history since last visit: No Added or removed any Medications: No Any new allergies: No Any falls since last visit: No Any hospitalizations or surgeries since last visit: No Assessment: Vitals: 12/20/23 1627 BP: (!) 142/84 Pulse: 74 Resp: 18 Temp: 36.4 C (97.6 F) Treatment: Wound: N/A Patient was seen for a nurse visit to have dressings changed. Dressing was removed. Wound was cleansed with soap and water, moisterizer was applied to periwound, N/A dressing was applied to wound, unnaboot and profore compression wraps were applied per provider's orders. Discharge Information: Patient was discharged in stable condition. Ambulatory Status: Walker Discharge Destination: home Transportation: Private Auto Accompanied by: patient Schedule Follow up Appointment: no No orders of the defined types were placed in this encounter. documented in this encounter [facility] 12-19-2023 Telephone encounter Note Pt aware of CT results, aware we are waiting on radiologist to compare both sides of inguinal region to see if she may need US to further assess. Pt verbalized understanding, no further questions. [facility] 12-19-2023 Telephone encounter Note ----- Message from AMAURY Cheng CNP sent at 12/13/2023 3:51 PM EDT ----- Tanvir Hamm, Dr. Franks wanted to know if you think the scattered adenopathy in the R inguinal area warrants US or biopsy. She thinks it looks similar to L side and less likely disease but she wanted to see what you thought. Thank you, Jaqueline Grayson APRN [facility] 12-19-2023 Miscellaneous Notes Pt aware of CT results, aware we are waiting on radiologist to compare both sides of inguinal region to see if she may need US to further assess. Pt verbalized understanding, no further questions. ----- Message from AMAURY Cheng CNP sent at 12/13/2023 3:51 PM EDT ----- Tanvir Hamm, Dr. Franks wanted to know if you think the scattered adenopathy in the R inguinal area warrants US or biopsy. She thinks it looks similar to L side and less likely disease but she wanted to see what you thought. Thank you, Jaqueline Grayson APRN documented in this encounter [facility] 12-05-2023 History of Present illness Narrative INITIAL VISIT - WOUND CARE Dameon Potter AGE: 68 y.o. GENDER: female : 1955 TODAY'S DATE: 12/05/2023 HISTORY OF PRESENT ILLNESS: Dameon Potter is a 68 y.o. female who presents today for checkup. No open areas. Lymphedema controlled with wraps. Has some erythematous streaks from irritation from dressings - will address. No open areas, no sx infection. Wound Location : left, right, and leg The patients pain is Problem list: Patient Active Problem List: Endometrial cancer (CMS/HCC) (HCC) Obesity with body mass index greater than 30 OAB (overactive bladder) Uncontrolled type 2 diabetes mellitus with hyperglycemia, with long-term current use of insulin (HCC) Deficiency of nutrient elements Zinc deficiency Lymphedema Hepatic steatosis Calculus of gallbladder with chronic cholecystitis without obstruction Vitamin D deficiency Intestinal malabsorption Morbid obesity (HCC) Hypothyroidism Essential hypertension, benign Mixed hyperlipidemia Fatigue Obstructive sleep apnea SOB (shortness of breath) on exertion Gastritis without bleeding PND (post-nasal drip) Gastroesophageal reflux disease without esophagitis Asthma without status asthmaticus Candidal vulvovaginitis Cardiomegaly Cortical cataract of both eyes Diabetic retinopathy associated with type 2 diabetes mellitus (HCC) Diastolic dysfunction Dry eye syndrome of bilateral lacrimal glands Malignant neoplasm of uterus (HCC) Malnutrition of mild degree (Bianchi: 75% to less than 90% of standard weight) (HCC) Moderate recurrent major depression (HCC) Nuclear sclerotic cataract, bilateral Polycystic ovaries Posterior subcapsular age-related cataract of left eye Postmenopausal bleeding Primary open angle glaucoma of both eyes, mild stage Refractive error Chronic sinusitis Thyroglossal duct cyst Type 2 diabetes mellitus with hyperglycemia (HCC) Corneal epithelial basement membrane dystrophy Uncontrolled type 2 diabetes mellitus Non-pressure chronic ulcer left lower leg, 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) Hypertension Lymphedema of both lower extremities MDD (major depressive disorder) Urinary incontinence Asthma Vaginal candidiasis Chronic rhinitis DM retinopathy (HCC) Diastolic heart failure (HCC) HLD (hyperlipidemia) RADHA (obstructive sleep apnea) Polycystic ovarian syndrome Open-angle glaucoma Review of Systems: General: Fever: Negative Night Sweats: Negative Eye: Blurry Vision:Negative Double Vision: Negative Ent: Headaches: Negative Sore throat: Negative Ear pain or drainage: Negative Allergy/Immunology: Hives: Negative Hematology/Lymphatic: Bleeding Problems: Negative Blood Clots: Negative Swollen Lymph Nodes: Negative Lungs: Cough: Negative SOB: Negative Cardiovascular: Chest Pain: Negative Palpitations:Negative GI: Nausea/Vomiting: Negative Abdominal Pain: Negative Change in Bowels: Negative : Dysuria: Negative Increase Urinary Frequency/Urgency: Negative Neuro: Seizures: Negative Confusion: Negative PAST MEDICAL HISTORY: Review of patient's family history indicates: Problem: Stroke Relation: Father Name: Age of Onset: (Not Specified) Problem: Obesity Relation: Mother Name: dementia Age of Onset: (Not Specified) Problem: Diabetes Relation: Mother Name: dementia Age of Onset: (Not Specified) Problem: High Blood Pressure Relation: Mother Name: dementia Age of Onset: (Not Specified) Problem: Heart disease Relation: Mother Name: dementia Age of Onset: (Not Specified) Problem: Stroke Relation: Paternal Grandfather Name: Age of Onset: (Not Specified) Problem: High Blood Pressure Relation: Father Name: Age of Onset: (Not Specified) Problem: Diabetes Relation: Father Name: Age of Onset: (Not Specified) Problem: Diabetes Relation: Paternal Grandfather Name: Age of Onset: (Not Specified) Problem: Heart attack Relation: Paternal Grandmother Name: Age of Onset: (Not Specified) Problem: Colon cancer Relation: Neg Hx Name: Age of Onset: (Not Specified) Problem: High Blood Pressure Relation: Brother Name: Age of Onset: (Not Specified) Problem: Cancer Relation: Father Name: Age of Onset: (Not Specified) Comment: bladder Problem: Obesity Relation: Father Name: Age of Onset: (Not Specified) Social History Socioeconomic History Marital status: Single Spouse name: Not on file Number of children: Not on file Years of education: Not on file Highest education level: Not on file Occupational History Not on file Tobacco Use Smoking status: Never Smokeless tobacco: Never Substance and Sexual Activity Alcohol use: No Drug use: No Sexual activity: Not on file Other Topics Concerns: Not on file Social History Narrative Not on file Social Determinants of Health Financial Resource Strain: Not on file Food Insecurity: Not on file Transportation Needs: Not on file Physical Activity: Not on file Stress: Not on file Social Connections: Not on file Intimate Partner Violence: Not on file Housing Stability: Not on file Past Surgical History: No date: CATARACT EXTRACTION; Bilateral 01/29/2018: CHOLECYSTECTOMY Comment: w/ LRYGB and Umbilical Hernia repair - [facility] 09/03/2020: DILATION AND CURETTAGE OF UTERUS Comment: with hysteroscopy 01/29/2018: GASTRIC BYPASS Comment: LRYGB w/ Lap Aggie and Umbilical Hernia repair, [facility] No date: GASTRIC BYPASS 09/30/2020: HYSTERECTOMY Comment: TLH/BSO; Dr. Cuauhtemoc Stubbs : MOUTH SURGERY Comment: gum removal to expose wisdom teeth 2000: THYROGLOSSAL DUCT EXCISION Comment: [facility]- Dr. Vin Keating No date: THYROIDECTOMY 01/29/2018: UMBILICAL HERNIA REPAIR Comment: w/ LRYGB and Lap Aggie - [facility] 03/20/2017: UPPER GASTROINTESTINAL ENDOSCOPY Comment: pre opDeepali 2012: WISDOM TOOTH EXTRACTION Comment: [facility] Past Medical History: No date: Anxiety No date: Asthma No date: Deficiency of nutrient elements No date: Depression No date: Dry eye No date: Fatigue No date: Gastritis No date: GERD (gastroesophageal reflux disease) No date: Glaucoma No date: Glaucoma No date: Hyperlipidemia No date: Hypertension No date: Hypothyroid No date: Hypothyroidism No date: Incontinence No date: Intestinal malabsorption No date: Lymph edema No date: Morbid obesity (HCC) No date: Obstructive sleep apnea No date: PMB (postmenopausal bleeding) No date: Polycystic ovarian syndrome No date: Psoriasis No date: SOB (shortness of breath) on exertion No date: Thyroglossal duct cyst No date: Type 2 diabetes mellitus without complication ([facility]) ([facility]) No date: Urinary tract infection No date: Uterine cancer ([facility]) ([facility]) 05/10/2017: Vitamin D deficiency 06/21/2018: Zinc deficiency Current Outpatient Medications on File Prior to Encounter: albuterol 108 (90 Base) MCG/ACT inhaler, Inhale 2 puffs every 6 hours as needed., Disp: , Rfl: atorvastatin (Lipitor) 40 MG tablet, Take by mouth daily., Disp: , Rfl: BD Insulin Syringe U/F 30G X 1/2 0.5 ML misc, 2 times daily with insulin, Disp: 200 each, Rfl: 3 brimonidine (AlphaGAN P) 0.1 % ophthalmic solution, Administer 1 drop into both eyes in the morning and 1 drop at noon and 1 drop in the evening., Disp: , Rfl: carvedilol (Coreg) 12.5 MG tablet, Take 12.5 mg by mouth in the morning and 12.5 mg in the evening. Take with meals., Disp: , Rfl: cholecalciferol (Vitamin D-3) 50 MCG (2000 UT) tablet, Take 2,000 Units by mouth in the morning., Disp: , Rfl: citalopram (CeleXA) 20 MG tablet, Take by mouth Every 24 hours., Disp: , Rfl: Continuous Glucose Sensor (FreeStyle Satya 3 Sensor) mis, 1 Device every 14 (fourteen) days., Disp: 7 each, Rfl: 3 cyanocobalamin (Vitamin B-12) 1000 MCG tablet, Take 1,000 mcg by mouth 1 (one) time per week., Disp: , Rfl: EPINEPHRINE HCL, ANAPHYLAXIS, IM, Inject into the shoulder, thigh, or buttocks., Disp: , Rfl: fluconazole (Diflucan) 200 MG tablet, Take 1 tablet by mouth daily. PRN yeast infections, Disp: , Rfl: FREESTYLE LITE test strip, 1 each by Other route 4 times daily. As directed, Disp: 400 each, Rfl: 3 glucose 4 g chewable tablet, Chew 16 g if needed for low blood sugar., Disp: , Rfl: hydrocortisone (West-Dmitri) 0.2 % cream, Apply topically every 12 hours., Disp: , Rfl: insulin glargine (Lantus SoloStar) 100 UNIT/ML pen, Inject 16 Units under the skin Nightly., Disp: 15 mL, Rfl: 3 insulin lispro (HumaLOG) 100 UNIT/ML pen injection, Inject 16 Units under the skin daily with supper., Disp: 14.4 mL, Rfl: 3 insulin pen needle 32G x 4 mm misc, Use as instructed 2 times daily, Disp: 200 each, Rfl: 3 levothyroxine (Synthroid, Levoxyl) 175 MCG tablet, Take 1 tablet (175 mcg) by mouth every morning (before breakfast)., Disp: 90 tablet, Rfl: 3 loperamide (Imodium) 2 MG capsule, Take 2 mg by mouth as needed for diarrhea., Disp: , Rfl: mirabegron ER (Myrbetriq) 50 MG 24 hr tablet, Every 24 hours. PRN, Disp: , Rfl: multivitamin, Pediatric, (Flintstones Gummies) chewable tablet, Chew 2 tablets. With iron, Disp: , Rfl: olmesartan (BENIcar) 40 MG tablet, Take 1 tablet (40 mg) by mouth daily., Disp: 90 tablet, Rfl: 3 PROTEIN PO, Take by mouth., Disp: , Rfl: sulfamethoxazole-trimethoprim (Bactrim DS) 800-160 MG tablet, Take 1 tablet by mouth in the morning and 1 tablet in the evening., Disp: , Rfl: timolol (Timoptic) 0.5 % ophthalmic solution, Administer 1 drop into both eyes in the morning and 1 drop in the evening., Disp: , Rfl: triamcinolone (Kenalog) 0.1 % cream, Apply to affected area 1-2 times daily as needed. Avoid face and groin., Disp: 30 g, Rfl: 2 Current Facility-Administered Medications on File Prior to Encounter: triamcinolone (Kenalog) 0.1 % cream, , Topical, Once, Jerome Perdomo MD Allergies as of 12/05/2023 - Reviewed 12/05/2023 -- Bimatoprost -- Other -- noted 05/06/2018 -- Doxycycline -- Hives -- noted 05/24/2022 -- Erythromycin -- Hives -- noted 05/24/2022 -- Levaquin [levofloxacin] -- Hives -- noted 05/24/2022 -- Macrobid [nitrofurantoin] -- Hives -- noted 05/24/2022 -- Penicillins -- Hives -- noted 05/24/2022 -- Levofloxacin in d5w -- Swelling -- noted 03/01/2015 -- Macrolides and ketolides -- Hives -- noted 02/27/2004 -- Molds & smuts -- Itching -- noted 03/24/2015 -- Nitrofurantoin monohyd macro -- Itching -- noted 12/22/2014 -- Other -- Itching -- noted 02/11/2013 PHYSICAL EXAM: Blood pressure (!) 175/74, pulse 64, resp. rate 18. Gen: A and O x 3, NAD, well nourished Eyes: Sclera non icterus, PERRL Head: Normocephalic, non-tender Neck: Supple, no adenopathy, thyroid non tender and no masses,no carotid bruits Lungs: CTA, symmetrical Chest: RRR, no murmurs Abd: Soft, NT, ND, no HSM, no hernias, no bruits Ext: No edema, no cyanosis Psych: reveals appropriate mood, memory and judgment, Neuro: Reveals no gross motor or sensory deficits, Msk: 5/5 strength all 4 extremities, no joint tenderness Vascular: Pulses Fem + Pop DP/PT + Assessment: BP (!) 175/74 Pulse 64 Resp 18 Wound Reference Date is when first assessed. Measurements shown are from today's visit. Wound BP (!) 175/74 Pulse 64 Resp 18 Wound See CAHUILLA IMPRESSION:Lymphedema (primary encounter diagnosis) Plan: Plan for wound - Treatment: see orders Discussed appropriate home care of this wound. Wound redressed. Patient instructions were given. Follow up: as per protocol documented in this encounter [facility] 12-05-2023 Hospital Discharge instructions Zayda Bradford RN - 12/05/2023 11:00 AM EDT Nurse visit in [address] Perdomo in 2 weeks Triamcinolone to areas on legs along with Xeroform if needed ABD pads to upper legs Elevate legs to the level of the heart or above for 30 minutes daily and/or when sitting, a frequency of: as much as possible Unna Boot: Do not remove Unna Boot. Keep dry. If pain or swelling or discoloration of toes noted, elevate legs above level of heart for 1 hour. If no relief, call the center. If unable to reach center, remove boot and keep leg elevated until contact with center can be made. Multilayer Compression Therapy - 4 layers: Do not get legs with compression wrap wet. If wraps seem too tight, elevate legs above level of heart for one hour. If no relief, call the wound center. documented in this encounter [facility] 11-21-2023 History of Present illness Narrative [facility] Nurse Visit Note Dameon Potter AGE: 68 y.o. GENDER: female : 1955 EPISODE DATE: 11/21/23 Arrival Information: Patient Arrived: Walker Transfer Assistance: None Accompanied by: self Any changes in medical history since last visit: No Added or removed any Medications: No Any new allergies: No Any falls since last visit: No Any hospitalizations or surgeries since last visit: No Assessment: There were no vitals filed for this visit. Treatment: Wound: none Patient was seen for a nurse visit to have profores changed. Dressing was removed. Wound was cleansed with soap and water, Triamcinalone cream was applied to periwound, Xeroform dressing was applied to wound, Unna Boot, Profore compression wrap was applied per provider's orders. Discharge Information: Patient was discharged in stable condition. Ambulatory Status: Ambulatory Discharge Destination: home Transportation: Private Auto Accompanied by: patient Schedule Follow up Appointment: yes No orders of the defined types were placed in this encounter. documented in this encounter [facility] 11-21-2023 Hospital Discharge instructions Mosesjoya Oliviera - 11/21/2023 3:15 PM EDT Nurse visit in [address] Perdomo in 2 weeks Triamcinolone to areas on legs along with Xeroform if needed ABD pads to upper legs Elevate legs to the level of the heart or above for 30 minutes daily and/or when sitting, a frequency of: as much as possible Unna Boot: Do not remove Unna Boot. Keep dry. If pain or swelling or discoloration of toes noted, elevate legs above level of heart for 1 hour. If no relief, call the center. If unable to reach center, remove boot and keep leg elevated until contact with center can be made. Multilayer Compression Therapy - 4 layers: Do not get legs with compression wrap wet. If wraps seem too tight, elevate legs above level of heart for one hour. If no relief, call the wound center. documented in this encounter [facility] 11-15-2023 Telephone encounter Note Tried to call patient to let her know about imaging appointment. Unable to leave message, Mailbox is full. [facility] 11-15-2023 Miscellaneous Notes Tried to call patient to let her know about imaging appointment. Unable to leave message, Mailbox is full. documented in this encounter [facility] 11-13-2023 Note Date of Procedure 11/13/2023. Nitroglycerin Separator Operator Information Imaging Center Manager: Clementine. Start time: 1:43 PM. Stop time: 1:43 PM. Notes Obtained for future comparison [facility] 11-13-2023 Note Date of Procedure 11/13/2023. Nitroglycerin Separator Operator Information Imaging Center Manager: KAM. Start time: 1:12 PM. Stop time: 1:16 PM. Interpretation Right Eye Findings include Intraretinal fluid; Comments: (Extrafoveal IRF). Left Eye Findings include Intraretinal fluid; Comments: (Extrafoveal IRF). Interval Change Right Eye Stable. Left Eye Stable. [facility] 11-13-2023 Note HNO ID: [id number] Author: MASON FAULKNER MD Service: ? Author Type: Physician Type: Progress Notes Filed: 11/13/2023 14:19 Note Text: HPI: At last visit in Apr 2023 Discussed blood pressure and blood pressure control Observation recommended Vision stable OU Impression: 68 year old female PAST MEDICAL HISTORY Diagnosis Date Asthma Cataract Cervical cancer (HCC) Diabetes (HCC) GERD (gastroesophageal reflux disease) High blood pressure Hypothyroidism Lymphedema Nonrheumatic aortic valve stenosis POAG (primary open-angle glaucoma) Pseudophakia, left eye 11/22/2021 Pseudophakia, right eye 12/06/2021 Sleep apnea #. Severe NPDR, both eyes - extrafoveal Diabetic macular edema both eyes, stable OU #. Pseudophakia, both eyes - stable both eyes #. Primary open angle glaucoma (POAG) both eyes - 18 both eyes on drops #. Hypertensive retinopathy both eyes - stable OU PLAN: Discussed the above findings with the patient Observation recommended Discussed blood glucose and blood pressure control Return to clinic ~ 6 months NEXT: DILATE both eyes, OCT both eyes, FUNDUS PHOTOS OU I have confirmed and edited as necessary the relevant ophthalmic history, ROS, and the neuro exam findings as obtained by others. I have seen and examined this patient. I have discussed the case and the management of this patient's care with the Resident and/or fellow if applicable. I also have reviewed and agree with the assessment and plan as stated above and agree with all of its relevant components. Mason Faulkner MD, PhD Vitreoretinal Surgery AND Ocular Inflammatory Diseases [facility] 11-13-2023 History of Present illness Narrative HPI: At last visit in Apr 2023 Discussed blood pressure and blood pressure control Observation recommended Vision stable OU Impression: 68 year old female PAST MEDICAL HISTORY Diagnosis Date Asthma Cataract Cervical cancer (HCC) Diabetes (HCC) GERD (gastroesophageal reflux disease) High blood pressure Hypothyroidism Lymphedema Nonrheumatic aortic valve stenosis POAG (primary open-angle glaucoma) Pseudophakia, left eye 11/22/2021 Pseudophakia, right eye 12/06/2021 Sleep apnea #. Severe NPDR, both eyes - extrafoveal Diabetic macular edema both eyes, stable OU #. Pseudophakia, both eyes - stable both eyes #. Primary open angle glaucoma (POAG) both eyes - 18 both eyes on drops #. Hypertensive retinopathy both eyes - stable OU PLAN: Discussed the above findings with the patient Observation recommended Discussed blood glucose and blood pressure control Return to clinic ~ 6 months NEXT: DILATE both eyes, OCT both eyes, FUNDUS PHOTOS OU I have confirmed and edited as necessary the relevant ophthalmic history, ROS, and the neuro exam findings as obtained by others. I have seen and examined this patient. I have discussed the case and the management of this patient's care with the Resident and/or fellow if applicable. I also have reviewed and agree with the assessment and plan as stated above and agree with all of its relevant components. Mason Faulkner MD, PhD Vitreoretinal Surgery & Ocular Inflammatory Diseases [facility] documented in this encounter [facility] 11-07-2023 History of Present illness Narrative INITIAL VISIT - WOUND CARE Dameon Potter AGE: 68 y.o. GENDER: female : 1955 TODAY'S DATE: 11/07/2023 HISTORY OF PRESENT ILLNESS: Dameon Potter is a 68 y.o. female who presents today in F/U for lymphedema. No open areas. Minimal irritation from wraps. Lymphedema controlled with compression. Wound Location : left, right, and leg The patients pain is Problem list: Patient Active Problem List: Endometrial cancer (CMS/HCC) (HCC) Obesity with body mass index greater than 30 OAB (overactive bladder) Uncontrolled type 2 diabetes mellitus with hyperglycemia, with long-term current use of insulin (HCC) Deficiency of nutrient elements Zinc deficiency Lymphedema Hepatic steatosis Calculus of gallbladder with chronic cholecystitis without obstruction Vitamin D deficiency Intestinal malabsorption Morbid obesity (HCC) Hypothyroidism Essential hypertension, benign Mixed hyperlipidemia Fatigue Obstructive sleep apnea SOB (shortness of breath) on exertion Gastritis without bleeding PND (post-nasal drip) Gastroesophageal reflux disease without esophagitis Asthma without status asthmaticus Candidal vulvovaginitis Cardiomegaly Cortical cataract of both eyes Diabetic retinopathy associated with type 2 diabetes mellitus (HCC) Diastolic dysfunction Dry eye syndrome of bilateral lacrimal glands Malignant neoplasm of uterus (HCC) Malnutrition of mild degree (Bianchi: 75% to less than 90% of standard weight) (HCC) Moderate recurrent major depression ([facility]) Nuclear sclerotic cataract, bilateral Polycystic ovaries Posterior subcapsular age-related cataract of left eye Postmenopausal bleeding Primary open angle glaucoma of both eyes, mild stage Refractive error Chronic sinusitis Thyroglossal duct cyst Type 2 diabetes mellitus with hyperglycemia (HCC) Corneal epithelial basement membrane dystrophy Uncontrolled type 2 diabetes mellitus Non-pressure chronic ulcer left lower leg, 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) Hypertension Lymphedema of both lower extremities MDD (major depressive disorder) Urinary incontinence Asthma Vaginal candidiasis Chronic rhinitis DM retinopathy (HCC) Diastolic heart failure (HCC) HLD (hyperlipidemia) RADHA (obstructive sleep apnea) Polycystic ovarian syndrome Open-angle glaucoma Review of Systems: General: Fever: Negative Night Sweats: Negative Eye: Blurry Vision:Negative Double Vision: Negative Ent: Headaches: Negative Sore throat: Negative Ear pain or drainage: Negative Allergy/Immunology: Hives: Negative Hematology/Lymphatic: Bleeding Problems: Negative Blood Clots: Negative Swollen Lymph Nodes: Negative Lungs: Cough: Negative SOB: Negative Cardiovascular: Chest Pain: Negative Palpitations:Negative GI: Nausea/Vomiting: Negative Abdominal Pain: Negative Change in Bowels: Negative : Dysuria: Negative Increase Urinary Frequency/Urgency: Negative Neuro: Seizures: Negative Confusion: Negative PAST MEDICAL HISTORY: Review of patient's family history indicates: Problem: Stroke Relation: Father Name: Age of Onset: (Not Specified) Problem: Obesity Relation: Mother Name: dementia Age of Onset: (Not Specified) Problem: Diabetes Relation: Mother Name: dementia Age of Onset: (Not Specified) Problem: High Blood Pressure Relation: Mother Name: dementia Age of Onset: (Not Specified) Problem: Heart disease Relation: Mother Name: dementia Age of Onset: (Not Specified) Problem: Stroke Relation: Paternal Grandfather Name: Age of Onset: (Not Specified) Problem: High Blood Pressure Relation: Father Name: Age of Onset: (Not Specified) Problem: Diabetes Relation: Father Name: Age of Onset: (Not Specified) Problem: Diabetes Relation: Paternal Grandfather Name: Age of Onset: (Not Specified) Problem: Heart attack Relation: Paternal Grandmother Name: Age of Onset: (Not Specified) Problem: Colon cancer Relation: Neg Hx Name: Age of Onset: (Not Specified) Problem: High Blood Pressure Relation: Brother Name: Age of Onset: (Not Specified) Problem: Cancer Relation: Father Name: Age of Onset: (Not Specified) Comment: bladder Problem: Obesity Relation: Father Name: Age of Onset: (Not Specified) Social History Socioeconomic History Marital status: Single Spouse name: Not on file Number of children: Not on file Years of education: Not on file Highest education level: Not on file Occupational History Not on file Tobacco Use Smoking status: Never Smokeless tobacco: Never Substance and Sexual Activity Alcohol use: No Drug use: No Sexual activity: Not on file Other Topics Concerns: Not on file Social History Narrative Not on file Social Determinants of Health Financial Resource Strain: Not on file Food Insecurity: Not on file Transportation Needs: Not on file Physical Activity: Not on file Stress: Not on file Social Connections: Not on file Intimate Partner Violence: Not on file Housing Stability: Not on file Past Surgical History: No date: CATARACT EXTRACTION; Bilateral 01/29/2018: CHOLECYSTECTOMY Comment: w/ LRYGB and Umbilical Hernia repair - [facility] 09/03/2020: DILATION AND CURETTAGE OF UTERUS Comment: with hysteroscopy 01/29/2018: GASTRIC BYPASS Comment: LRYGB w/ Lap Aggie and Umbilical Hernia repair, [facility] No date: GASTRIC BYPASS 09/30/2020: HYSTERECTOMY Comment: TLH/BSO; Dr. Cuauhtemoc Stubbs : MOUTH SURGERY Comment: gum removal to expose wisdom teeth 2000: THYROGLOSSAL DUCT EXCISION Comment: [facility]- Dr. Vin Keating No date: THYROIDECTOMY 01/29/2018: UMBILICAL HERNIA REPAIR Comment: w/ LRYGB and Lap Aggie - [facility] 03/20/2017: UPPER GASTROINTESTINAL ENDOSCOPY Comment: pre opDeepali 2012: WISDOM TOOTH EXTRACTION Comment: [facility] Past Medical History: No date: Anxiety No date: Asthma No date: Deficiency of nutrient elements No date: Depression No date: Dry eye No date: Fatigue No date: Gastritis No date: GERD (gastroesophageal reflux disease) No date: Glaucoma No date: Glaucoma No date: Hyperlipidemia No date: Hypertension No date: Hypothyroid No date: Hypothyroidism No date: Incontinence No date: Intestinal malabsorption No date: Lymph edema No date: Morbid obesity (HCC) No date: Obstructive sleep apnea No date: PMB (postmenopausal bleeding) No date: Polycystic ovarian syndrome No date: Psoriasis No date: SOB (shortness of breath) on exertion No date: Thyroglossal duct cyst No date: Type 2 diabetes mellitus without complication ([facility]) ([facility]) No date: Urinary tract infection No date: Uterine cancer ([facility]) ([facility]) 05/10/2017: Vitamin D deficiency 06/21/2018: Zinc deficiency Current Outpatient Medications on File Prior to Encounter: albuterol 108 (90 Base) MCG/ACT inhaler, Inhale 2 puffs every 6 hours as needed., Disp: , Rfl: atorvastatin (Lipitor) 40 MG tablet, Take by mouth daily., Disp: , Rfl: BD Insulin Syringe U/F 30G X 1/2 0.5 ML misc, 2 times daily with insulin, Disp: 200 each, Rfl: 3 brimonidine (AlphaGAN P) 0.1 % ophthalmic solution, Administer 1 drop into both eyes in the morning and 1 drop at noon and 1 drop in the evening., Disp: , Rfl: carvedilol (Coreg) 12.5 MG tablet, Take 12.5 mg by mouth in the morning and 12.5 mg in the evening. Take with meals., Disp: , Rfl: cholecalciferol (Vitamin D-3) 50 MCG (2000 UT) tablet, Take 2,000 Units by mouth in the morning., Disp: , Rfl: citalopram (CeleXA) 20 MG tablet, Take by mouth Every 24 hours., Disp: , Rfl: Continuous Glucose Sensor (FreeStyle Satya 3 Sensor) [facility], 1 Device every 14 (fourteen) days., Disp: 7 each, Rfl: 3 cyanocobalamin (Vitamin B-12) 1000 MCG tablet, Take 1,000 mcg by mouth 1 (one) time per week., Disp: , Rfl: EPINEPHRINE HCL, ANAPHYLAXIS, IM, Inject into the shoulder, thigh, or buttocks., Disp: , Rfl: fluconazole (Diflucan) 200 MG tablet, Take 1 tablet by mouth daily. PRN yeast infections, Disp: , Rfl: FREESTYLE LITE test strip, 1 each by Other route 4 times daily. As directed, Disp: 400 each, Rfl: 3 glucose 4 g chewable tablet, Chew 16 g if needed for low blood sugar., Disp: , Rfl: hydrocortisone (West-Dmitri) 0.2 % cream, Apply topically every 12 hours., Disp: , Rfl: insulin glargine (Lantus SoloStar) 100 UNIT/ML pen, Inject 16 Units under the skin Nightly., Disp: 15 mL, Rfl: 3 insulin lispro (HumaLOG) 100 UNIT/ML pen injection, Inject 16 Units under the skin daily with supper., Disp: 14.4 mL, Rfl: 3 insulin pen needle 32G x 4 mm misc, Use as instructed 2 times daily, Disp: 200 each, Rfl: 3 levothyroxine (Synthroid, Levoxyl) 175 MCG tablet, Take 1 tablet (175 mcg) by mouth every morning (before breakfast)., Disp: 90 tablet, Rfl: 3 loperamide (Imodium) 2 MG capsule, Take 2 mg by mouth as needed for diarrhea., Disp: , Rfl: mirabegron ER (Myrbetriq) 50 MG 24 hr tablet, Every 24 hours. PRN, Disp: , Rfl: multivitamin, Pediatric, (Flintstones Gummies) chewable tablet, Chew 2 tablets. With iron, Disp: , Rfl: olmesartan (BENIcar) 40 MG tablet, Take 1 tablet (40 mg) by mouth daily., Disp: 90 tablet, Rfl: 3 PROTEIN PO, Take by mouth., Disp: , Rfl: sulfamethoxazole-trimethoprim (Bactrim DS) 800-160 MG tablet, Take 1 tablet by mouth in the morning and 1 tablet in the evening., Disp: , Rfl: timolol (Timoptic) 0.5 % ophthalmic solution, Administer 1 drop into both eyes in the morning and 1 drop in the evening., Disp: , Rfl: [DISCONTINUED] brimonidine (Alphagan P) 0.1 % ophthalmic solution, 1 drop in the morning and 1 drop at noon and 1 drop in the evening., Disp: , Rfl: [DISCONTINUED] carvedilol (Coreg) 6.25 MG tablet, Take 12.5 mg by mouth in the morning and 12.5 mg in the evening., Disp: , Rfl: [DISCONTINUED] Continuous Blood Gluc Sensor (FreeStyle Satya 2 Sensor) misc, 1 Device every 14 (fourteen) days., Disp: 9 each, Rfl: 3 [DISCONTINUED] Continuous Glucose Sensor (FreeStyle Satya 3 Sensor) misc, 1 Device every 14 (fourteen) days., Disp: 7 each, Rfl: 3 [DISCONTINUED] fluconazole (Diflucan) 150 MG tablet, TAKE 1 TABLET BY MOUTH 1 TIME FOR 1 DAY, Disp: , Rfl: [DISCONTINUED] FREESTYLE LITE test strip, USE DIRECTED FOUR TIMES DAILY, Disp: , Rfl: [DISCONTINUED] insulin lispro (HumaLOG) 100 UNIT/ML pen injection, Inject 16 Units under the skin daily with supper., Disp: 14.4 mL, Rfl: 3 [DISCONTINUED] insulin pen needle 32G x 4 mm misc, Use as instructed 2 times daily, Disp: 200 each, Rfl: 3 [DISCONTINUED] insulin regular (HumuLIN R) 500 UNIT/ML CONCENTRATED injection, Inject 7 Units under the skin. When she eats first meals, Disp: , Rfl: [DISCONTINUED] Lantus SoloStar 100 UNIT/ML pen, INJECT 16 UNITS SUBCUTANEOUSLY EVERY MORNING (Patient not taking: Reported on 11/02/2023), Disp: 15 mL, Rfl: 3 [DISCONTINUED] levothyroxine (Synthroid, Levoxyl) 175 MCG tablet, Take 1 tablet (175 mcg) by mouth every morning (before breakfast)., Disp: 90 tablet, Rfl: 3 [DISCONTINUED] timolol (Timoptic) 0.5 % ophthalmic solution, 1 drop in the morning and 1 drop in the evening., Disp: , Rfl: Current Facility-Administered Medications on File Prior to Encounter: triamcinolone (Kenalog) 0.1 % cream, , Topical, Once, Jerome Perdomo MD Allergies as of 11/07/2023 - Reviewed 11/07/2023 -- Bimatoprost -- Other -- noted 05/06/2018 -- Doxycycline -- Hives -- noted 05/24/2022 -- Erythromycin -- Hives -- noted 05/24/2022 -- Levaquin [levofloxacin] -- Hives -- noted 05/24/2022 -- Macrobid [nitrofurantoin] -- Hives -- noted 05/24/2022 -- Penicillins -- Hives -- noted 05/24/2022 -- Levofloxacin in d5w -- Swelling -- noted 03/01/2015 -- Macrolides and ketolides -- Hives -- noted 02/27/2004 -- Molds & smuts -- Itching -- noted 03/24/2015 -- Nitrofurantoin monohyd macro -- Itching -- noted 12/22/2014 -- Other -- Itching -- noted 02/11/2013 PHYSICAL EXAM: Temperature 36.7 C (98.1 F), temperature source Infrared, resp. rate 18. Gen: A and O x 3, NAD, well nourished Eyes: Sclera non icterus, PERRL Head: Normocephalic, non-tender Neck: Supple, no adenopathy, thyroid non tender and no masses,no carotid bruits Lungs: CTA, symmetrical Chest: RRR, no murmurs Abd: Soft, NT, ND, no HSM, no hernias, no bruits Ext: No edema, no cyanosis Psych: reveals appropriate mood, memory and judgment, Neuro: Reveals no gross motor or sensory deficits, Msk: 5/5 strength all 4 extremities, no joint tenderness Vascular: Pulses Fem + Pop DP/PT + Assessment: Temp 36.7 C (98.1 F) (Infrared) Resp 18 Wound Reference Date is when first assessed. Measurements shown are from today's visit. Wound Temp 36.7 C (98.1 F) (Infrared) Resp 18 Wound : see CAHUILLA IMPRESSION:Lymphedema (primary encounter diagnosis) Plan: Plan for wound - Treatment: see orders Discussed appropriate home care of this wound. Wound redressed. Patient instructions were given. Follow up: as per protocol. documented in this encounter [facility] 11-07-2023 Hospital Discharge instructions Zayda Bradford RN - 11/07/2023 11:15 AM EDT Nurse visit in [address] Perdomo in 2 weeks Triamcinolone to areas on legs along with Xeroform if needed ABD pads to upper legs Elevate legs to the level of the heart or above for 30 minutes daily and/or when sitting, a frequency of: as much as possible Unna Boot: Do not remove Unna Boot. Keep dry. If pain or swelling or discoloration of toes noted, elevate legs above level of heart for 1 hour. If no relief, call the center. If unable to reach center, remove boot and keep leg elevated until contact with center can be made. Multilayer Compression Therapy - 4 layers: Do not get legs with compression wrap wet. If wraps seem too tight, elevate legs above level of heart for one hour. If no relief, call the wound center. documented in this encounter [facility] 11-05-2023 Telephone encounter Note Tried to call patient to inform her of ct appointment (12/04/23 @ 1030) at location. Unable to leave message. Mailbox is full. [facility] 11-05-2023 Miscellaneous Notes Tried to call patient to inform her of ct appointment (12/04/23 @ 1030) at [facility] location. Unable to leave message. Mailbox is full. documented in this encounter [facility] 11-02-2023 History of Present illness Narrative Images from the original note were not included. [facility] [address] [place] [id number] Dept: [phone] Dept Loc: [phone] Visit type: Established patient Reason for Visit: Diabetes Mellitus, Hyperglycemia, and Follow-up Assessment and Plan 1. Type 2 diabetes mellitus with hyperglycemia, with long-term current use of insulin ([facility]) - AMB POC HEMOGLOBIN A1C 2. Primary hypertension 3. Hyperlipidemia associated with type 2 diabetes mellitus (HCC) ([facility]) 4. Class 3 severe obesity due to excess calories with serious comorbidity and body mass index (BMI) of 45.0 to 49.9 in adult ([facility]) 5. Acquired hypothyroidism 6. Insulin resistance 7. 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 and macular edema, with long-term current use of insulin (HCC) A1C is Lab Results Component Value Date HGBA1C 10.8 (A) 11/02/2023 PATIENT IS TO NOT TAKE U500 INSULIN Patient will make the following changes to their antihyperglycemic regimen: Discontinue U500 insulin Cotinue lantus 16 units daily Continue humalog 16 units with dinner Encourage to send in download in 2 weeks for cahges as may be needed aftwer her U500 is stopped Continue satya 3 through DME (total) scripts printed and sent- needs to have DME for satya teaching and assistance with set up No sglt-2- has frequent UTI and incontinence from uterine cancer and radiation No GLP-1- frequent diarrhea- as above Type 2 diabetes mellitus with hyperglycemia, with long-term current use of insulin - not controlled Diabetes is not stable Goal A1C = 6.5-7.0. Glucose goal range: 100-150 Insulin is necessary for ongoing mgmt. Recommend FSBS to occur 4 times daily, be recorded, and send to office in 2 weeks for review. 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 daily Class 3 severe obesity due to excess calories with serious comorbidity and body mass index (BMI) of 45.0 to 49.9 in adult - -Pt was counseled that diet and exercise are the foundation of DM treatment. If these 2 areas are not optimized then the pt will likely require more medications or higher doses to achieve control. Pt was asked to limit CHO consumption at each meal. Pt was advised to perform regular regimented brisk aerobic activity (ie walking, biking, swimming, etc) 30 min/d, 5d/wk (total of 150min weekly). Acquired hypothyroidism TSH T4, free AMB POC HEMOGLOBIN A1C TSH within normal limits as of 03/2021. Continue LT4 175 mcg daily and recheck labs today as she did not obtain as ordered Insulin resistance- continue U500 Discussed A1C and BG goals Encouraged lifestyle modifications of diet and exercise Encouraged optimal foot care- follow with podiatry if needed Encouraged following with ophthalmology Patient counseled on the importance of taking medication as prescribed Patient counseled on the effects of uncontrolled DM on other organ systems Patient counseled on risk factors assoicated with diabetes Patient counseled on detection and treatment of hypoglycemia Patient instructed to call office if BG >250 or <70 consistently Pt counseled about these recommendations. Pt voiced understanding. These recommendations made based on interpretation of available data (which may include FSBS, A1C, venous sampling, or data from pt recall). I reviewed: laboratory results reviewed: Yes radiographic reports reviewed: No I reviewed the radiographic images personally at the time of today's visit: No Pt was advised of the results. Records from outside facility/PCP office to be requested: No Scripts sent to pharmacy of pt choice: Yes No follow-ups on file. 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 Alcantara Initial [facility] office visit: 04/06/2021 Last office visit: 07/07/2022 Gastric bypass 2018 DM Onset: 2000 Type of DM: 2 Complications: Cardiovascular -- Yes htn, hlp Statin Use -- Yes LastDEE/Retina Eval: 10/26/2023 Dr Acveedo, q 6 months Retinopathy -- Yes Nephropathy -- Yes EDMAR/ARB Use -- Yes Polyneuropathy -- Yes Foot Exam: [facility] q2 WEEKS- for wraps- as long as wrapped they stay healed Obesity -- Yes Other -- No Personal history of pancreatitis-- No History of alcohol consumption--No Family history of thyroid cancer-- No Personal history of Urinary tract infections -- No Today's complaints include: Humulin U-500 - she is still taking from what she has had on hand trying to use the medication up- Has not started the lantus and/or the humalog She does not eat until late in the day she has many doctors appointment s during the day and has diarrhea from uterine cancer radiation when she eats - does not eat or take insulin until she klnows that she is at home for the day Radiation to lower abdomen and Vaginal Brachy in 2020 Has frequent UTI s with bladder incontinence at times Since last office visit denies new health problems, denies hospitalizations, and denies surgeries. Pt feels their blood sugars are unchanged since RAUL. Pt c/o sxs at today's visit: no Pt c/o sxs of hyperglycemia at today's visit: no Pt c/o SEs from Medications at today's visit: no Pt voices concerns about cost of medications at today's visit: no Hyperglycemia present: Yes Hypoglycemia present: No Blood sugar monitoring device used: glucometer Frequency of BGL checks 1-2 times daily Checking in the morning, see 180s If checking the 2nd time it is right after her 2nd meal it is higher Meter present:No Log present: No Reviewed w/ pt: No Scanned into Media: No Current DM Medications: Humulin u-500 - 7 units daily Taking Medications w/o Missed Doses: No Following Diet for DM: No 2 meals per day - Lunch and dinner Misses breakfast Graze throughout the day Diet drinks or water Following Exercise Regimen: No WALKS WITH WALKER Previously Used DM Meds: Yes Basaglar - Never started Did not qualify for patient assistance Metformin 500 mg 1 tablet BID (Not taking GI Side effects) Trulicity - Never started Did not qualify for patient assistance Review of Systems All other systems reviewed and are negative. An entire ROS was performed at the time of this encounter. Unless noted above in the HPI, the ROS is negative. Allergies Allergen Reactions Bimatoprost Other Blurred vision Doxycycline Hives Erythromycin Hives Levaquin [Levofloxacin] Hives Macrobid [Nitrofurantoin] Hives Penicillins Hives Levofloxacin In D5w Swelling oral Macrolides And Ketolides Hives 1980 Molds & Smuts Itching Mold allergy Nitrofurantoin Monohyd Macro Itching Other Itching Outpatient Medications Prior to Visit Medication Sig Dispense Refill albuterol 108 (90 Base) MCG/ACT inhaler Inhale 2 puffs every 6 hours as needed. atorvastatin (Lipitor) 40 MG tablet Take by mouth daily. BD Insulin Syringe U/F 30G X 1/2 0.5 ML misc 2 times daily with insulin 200 each 3 brimonidine (AlphaGAN P) 0.1 % ophthalmic solution Administer 1 drop into both eyes in the morning and 1 drop at noon and 1 drop in the evening. carvedilol (Coreg) 12.5 MG tablet Take 12.5 mg by mouth in the morning and 12.5 mg in the evening. Take with meals. cholecalciferol (Vitamin D-3) 50 MCG (2000 UT) tablet Take 2,000 Units by mouth in the morning. citalopram (CeleXA) 20 MG tablet Take by mouth Every 24 hours. Continuous Blood Gluc Sensor (FreeStyle Satya 2 Sensor) mis 1 Device every 14 (fourteen) days. 9 each 3 cyanocobalamin (Vitamin B-12) 1000 MCG tablet Take 1,000 mcg by mouth 1 (one) time per week. EPINEPHRINE HCL, ANAPHYLAXIS, IM Inject into the shoulder, thigh, or buttocks. fluconazole (Diflucan) 200 MG tablet Take 1 tablet by mouth daily. PRN yeast infections FREESTYLE LITE test strip USE DIRECTED FOUR TIMES DAILY glucose 4 g chewable tablet Chew 16 g if needed for low blood sugar. hydrocortisone (West-Dmitri) 0.2 % cream Apply topically every 12 hours. insulin pen needle 32G x 4 mm [facility] Use as instructed 2 times daily 200 each 3 insulin regular (HumuLIN R) 500 UNIT/ML CONCENTRATED injection Inject 7 Units under the skin. When she eats first meals levothyroxine (Synthroid, Levoxyl) 175 MCG tablet Take 1 tablet (175 mcg) by mouth every morning (before breakfast). 90 tablet 3 loperamide (Imodium) 2 MG capsule Take 2 mg by mouth as needed for diarrhea. mirabegron ER (Myrbetriq) 50 MG 24 hr tablet Every 24 hours. PRN multivitamin, Pediatric, (Flintstones Gummies) chewable tablet Chew 2 tablets. With iron olmesartan (BENIcar) 40 MG tablet Take 1 tablet (40 mg) by mouth daily. 90 tablet 3 PROTEIN PO Take by mouth. sulfamethoxazole-trimethoprim (Bactrim DS) 800-160 MG tablet Take 1 tablet by mouth in the morning and 1 tablet in the evening. timolol (Timoptic) 0.5 % ophthalmic solution Administer 1 drop into both eyes in the morning and 1 drop in the evening. insulin lispro (HumaLOG) 100 UNIT/ML pen injection Inject 16 Units under the skin daily with supper. 14.4 mL 3 Lantus SoloStar 100 UNIT/ML pen INJECT 16 UNITS SUBCUTANEOUSLY EVERY MORNING (Patient not taking: Reported on 11/02/2023) 15 mL 3 brimonidine (Alphagan P) 0.1 % ophthalmic solution 1 drop in the morning and 1 drop at noon and 1 drop in the evening. carvedilol (Coreg) 6.25 MG tablet Take 12.5 mg by mouth in the morning and 12.5 mg in the evening. fluconazole (Diflucan) 150 MG tablet TAKE 1 TABLET BY MOUTH 1 TIME FOR 1 DAY timolol (Timoptic) 0.5 % ophthalmic solution 1 drop in the morning and 1 drop in the evening. Facility-Administered Medications Prior to Visit Medication Dose Route Frequency Provider Last Rate Last Admin triamcinolone (Kenalog) 0.1 % cream Topical Once Jerome Perdomo MD Past Medical History: Diagnosis Date Anxiety Asthma Deficiency of nutrient elements Depression Dry eye Fatigue Gastritis GERD (gastroesophageal reflux disease) Glaucoma Glaucoma Hyperlipidemia Hypertension Hypothyroid Hypothyroidism Incontinence Intestinal malabsorption Lymph edema Morbid obesity (HCC) Obstructive sleep apnea PMB (postmenopausal bleeding) Polycystic ovarian syndrome Psoriasis SOB (shortness of breath) on exertion Thyroglossal duct cyst Type 2 diabetes mellitus without complication (CMS/HCC) (HCC) Urinary tract infection Uterine cancer (CMS/HCC) (HCC) Vitamin D deficiency 05/10/2017 Zinc deficiency 06/21/2018 Social History Tobacco Use Smoking status: Never Smokeless tobacco: Never Substance Use Topics Alcohol use: No Past Surgical History: Procedure Laterality Date CATARACT EXTRACTION Bilateral CHOLECYSTECTOMY 01/29/2018 w/ LRYGB and Umbilical Hernia repair - [facility] DILATION AND CURETTAGE OF UTERUS 09/03/2020 with hysteroscopy GASTRIC BYPASS 01/29/2018 LRYGB w/ Lap Aggie and Umbilical Hernia repair, [facility] GASTRIC BYPASS HYSTERECTOMY 09/30/2020 [facility]/BSO; Dr. Cuauhtemoc Stubbs MOUTH SURGERY gum removal to expose wisdom teeth THYROGLOSSAL DUCT EXCISION 2000 [facility]- Dr. Vin Keating THYROIDECTOMY UMBILICAL HERNIA REPAIR 01/29/2018 w/ LRYGB and Lap Aggie - [facility] UPPER GASTROINTESTINAL ENDOSCOPY 03/20/2017 pre op, [facility] WISDOM TOOTH EXTRACTION 2013 [facility] Family History Problem Relation Name Age of Onset Stroke Father Obesity Mother dementia Diabetes Mother dementia High Blood Pressure Mother dementia Heart disease Mother dementia Stroke Paternal Grandfather High Blood Pressure Father Diabetes Father Diabetes Paternal Grandfather Heart attack Paternal Grandmother Colon cancer Neg Hx High Blood Pressure Brother Cancer Father bladder Obesity Father Objective BP 110/80 (BP Location: Left arm, Patient Position: Sitting, BP Cuff Size: Adult) Pulse 74 Ht 5' 6 (1.676 m) Wt 269 lb 6.4 oz (122 kg) BMI 43.48 kg/m Physical Exam Constitutional: General: She is not in acute distress. Appearance: Normal appearance. She is obese. She is not ill-appearing, toxic-appearing or diaphoretic. HENT: Head: Normocephalic and atraumatic. Right Ear: External ear normal. Left Ear: External ear normal. Nose: Nose normal. Mouth/Throat: Mouth: Mucous membranes are moist. Eyes: Conjunctiva/sclera: Conjunctivae normal. Pulmonary: Effort: Pulmonary effort is normal. No respiratory distress. Musculoskeletal: General: No swelling. Normal range of motion. Skin: General: Skin is warm and dry. Neurological: General: No focal deficit present. Mental Status: She is alert. Psychiatric: Mood and Affect: Mood normal. Behavior: Behavior normal. Data Reviewed and Summarized Labs: No components found for: LABA1C No components found for: EAG Lab Results Component Value Date NA 135 04/06/2021 K 4.5 04/06/2021 CL 103 04/06/2021 CO2 23 10/06/2022 BUN 17 10/06/2022 CREATININE 0.78 10/06/2022 GLUCOSE 306 (H) 10/06/2022 CALCIUM 8.9 10/06/2022 Lab Results Component Value Date CHLPL 151 06/22/2021 CHLPL 151 06/22/2021 CHLPL 126 07/03/2019 CHOL 149 04/06/2021 CHOL 126 03/04/2020 CHOL 143 07/31/2019 Lab Results Component Value Date TRIG 414 06/22/2021 TRIG 167 (A) 04/06/2021 TRIG 111 03/04/2020 Lab Results Component Value Date HDL 50 06/22/2021 HDL 50 06/22/2021 HDL 42 04/06/2021 Lab Results Component Value Date LDLCALC 77 06/22/2021 LDLCALC 68 07/03/2019 No results found for: VLDL Lab Results Component Value Date CHOLHDLRATIO 3.0 06/22/2021 CHOLHDLRATIO 4 04/06/2021 CHOLHDLRATIO 3 03/04/2020 No results found for: [id number] Imaging/Testing: Lyric L Cruz, 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 Portions of the information within this encounter were entered using an electronic dictation system. Best attempts were made to edit/proofread the information prior to note completion. Despite the review of information, some errors may remain. If there are questions related to the information contained within the note please contact the signing physician directly. 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 @LOGOIMAGE@ No chief complaint on file. HISTORY OF THE PRESENT ILLNESS: Dameon Potter is a 68 y.o. with a history of Stage II grade 1 endometrial adenocarcinoma who presents today for routine surveillance of disease. She was initially diagnosed in 09/30/2020 and managed with robotic hysterectomy bilateral salpingo-oophorectomy followed by radiation therapy. INTERVAL SINCE RADIATION: 5 weeks 11/29/20 - 01/03/21: 45.00/45.00 Gy to the Pelvis in 25 fractions of 1.80 Gy using the VMAT/Daily IGRT technique with 10 MV over 35 days. 01/14/21 - 01/28/21: 30.00/30.00 Gy to the Vaginal Brachy in 5 fractions of 6.00 Gy using the Brachytherapy technique with HDR: Ir192 over 14 days. Interval History: Since the patient's last visit, she has been doing well and is without complaints. She denies abdominal pain, abdominal distension, pelvic pain, bloating, constipation, nausea, vomiting, increased abdominal girth, early satiety, weight loss, weight gain, vaginal bleeding and vaginal discharge, SOB. Reports her abd hernia has not changed. Pt has occasional UTIs and yeast infections which her PCP is helping to manage- staying the same. 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 Currently, denies hematuria, fever, chills, dysuria. Has chronic urinary incontinence. 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 Has ongoing issues with diarrhea since radiation. Using imodium as needed. Had gastric bypass surgery in 2018 and this also makes diarrhea worse for her. Wears depends and a susan pad. Also has urinary incontinence, was following with Dr. Ngo. Not interested in a referral at this time. Patient has cellulitis on bilateral legs and follows with wound care prn. Enjoyed Easter with her family-lots of nieces and nephews. One niece is due in 2 weeks with baby, due around 10/2022, little girl. Past Medical History: Diagnosis Date Anxiety Asthma Deficiency of nutrient elements Depression Dry eye Fatigue Gastritis GERD (gastroesophageal reflux disease) Glaucoma Glaucoma Hyperlipidemia Hypertension Hypothyroid Hypothyroidism Incontinence Intestinal malabsorption Lymph edema Morbid obesity (HCC) Obstructive sleep apnea PMB (postmenopausal bleeding) Polycystic ovarian syndrome Psoriasis SOB (shortness of breath) on exertion Thyroglossal duct cyst Type 2 diabetes mellitus without complication (CMS/HCC) (HCC) Urinary tract infection Uterine cancer (CMS/HCC) (HCC) Vitamin D deficiency 05/10/2017 Zinc deficiency 06/21/2018 Past Surgical History: Procedure Laterality Date CATARACT EXTRACTION Bilateral CHOLECYSTECTOMY 01/29/2018 w/ LRYGB and Umbilical Hernia repair - [facility] DILATION AND CURETTAGE OF UTERUS 09/03/2020 with hysteroscopy GASTRIC BYPASS 01/29/2018 LRYGB w/ Lap Aggie and Umbilical Hernia repair, [facility] GASTRIC BYPASS HYSTERECTOMY 09/30/2020 [facility]/BSO; Dr. Cuauhtemoc Stubbs MOUTH SURGERY 1979' gum removal to expose wisdom teeth THYROGLOSSAL DUCT EXCISION 2000 [facility]- Dr. Vin Keating THYROIDECTOMY UMBILICAL HERNIA REPAIR 01/29/2018 w/ LRYGB and Lap Aggie - [facility] UPPER GASTROINTESTINAL ENDOSCOPY 03/20/2017 pre op, [facility] WISDOM TOOTH EXTRACTION 2013 [facility] [email or web address]@ Allergies as of 11/01/2023 - Reviewed 10/24/2023 Allergen Reaction Noted Bimatoprost Other 05/06/2018 Doxycycline Hives 05/24/2022 Erythromycin Hives 05/24/2022 Levaquin [levofloxacin] Hives 05/24/2022 Macrobid [nitrofurantoin] Hives 05/24/2022 Penicillins Hives 05/24/2022 Levofloxacin in d5w Swelling 03/01/2015 Macrolides and ketolides Hives 02/27/2004 Molds & smuts Itching 03/24/2015 Nitrofurantoin monohyd macro Itching 12/22/2014 Other Itching 02/11/2013 REVIEW OF SYSTEMS: As per the HPI, otherwisenegative. There were no vitals filed for this visit. There is no height or weight on file to calculate BMI. Physical Exam Constitutional: Appearance: Normal appearance. HENT: Head: Normocephalic. Pulmonary: Effort: Pulmonary effort is normal. Abdominal: Palpations: Abdomen is soft. Hernia: A hernia is present. Comments: Well-healed laparoscopic incisions, large abdominal hernia Patient has a approximately 1 cm x 1 cm hardened lump on right lower quadrant under panus. Genitourinary: Comments: .Uterus, cervix, bilateral adnexa surgically absent. No lesions or nodularity of the vaginal cuff, posterior cul-de-sac or rectovaginal vault. Radiation changes seen through the vaginal canal. No bleeding or discharge noted. Musculoskeletal: Right lower leg: Edema present. Left lower leg: Edema present. Skin: General: Skin is warm and dry. Neurological: Mental Status: She is alert and oriented to person, place, and time. Psychiatric: Mood and Affect: Mood normal. Behavior: Behavior normal. ASSESSMENT/PLAN: 68 y.o. with Stage II grade 1 endometrial adenocarcinoma, currently without evidence of recurrence of disease. Continue routine surveillance of disease with visit every 6 months. Follow-up in [address] scan of abdomen and pelvis ordered for lump in right lower quadrant. Will call with results and follow-up accordingly. Continue with follow ups with PCP regarding occasional UTIs and yeast infections, HTN. The patient had an opportunity to ask questions, all of which were answered to the best of my ability. She is in agreement with the above noted plan. documented in this encounter [facility] 10-26-2023 Note HNO ID: [id number] Author: MOSES ACEVEDO MD Service: ? Author Type: Physician Type: Progress Notes Filed: 10/26/2023 15:12 Note Text: (V76.3064) Primary open angle glaucoma of both eyes, mild stage (primary encounter diagnosis) Comment: Discussed stable intraocular pressure both eyes. Plan: Pena visual field (HVF) 24-2 both eyes done today and reviewed in office. Reviewed changes both eyes = K vs. Retina. Continue Timolol 0.5% both eyes twice a day Continue Brimonidine 0.1% both eyes three times a day. Renewed today. Last visit: OCT nerve both eyes done today and reviewed in office. 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 Plan: Recommend frequent lubrication both eyes. Limitations discussed. (H04.123) Dry eye syndrome of bilateral lacrimal glands Comment: Discussed findings on exam. Plan: Recommend continue Artificial tears both eyes four times a day and as needed. Consider preservative free Artificial tears. Previous History: (E11.7655) 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 and macular edema, without long-term current use of insulin (HCC) Comment: Discussed retinopathy both eyes with diabetic macular edema both eyes, not clinically significant left eye. Plan: Continue blood sugar control and monitor with primary care physician. Recommend baseline Retina consult. Per Dr. Faulkner 05/15/2023: #. Severe NPDR, both eyes - extrafoveal Diabetic macular edema both eyes, stable OU #. Pseudophakia, both eyes - stable both eyes #. Primary open angle glaucoma (POAG) both eyes - 18 both eyes on drops (H52.7) Refractive error Comment: Discussed change in Manifest refraction. Plan: Manifest refraction updated and dispensed. 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 Plan: Monitor Follow up for 6 mos complete eye exam and OCT nerve both eyes. I have confirmed and edited as necessary the relevant ophthalmic history, ROS, and the neuro exam findings as obtained by others. I have seen and examined this patient. I have discussed the case and the management of this patient's care with the Resident/Fellow, if applicable. I also have reviewed and agree with the assessment and plan as stated above and agree with all of its relevant components. Moses Acevedo MD October 26, 2023 3:03 PM [facility] 10-26-2023 History of Present illness Narrative (H40.0351) Primary open angle glaucoma of both eyes, mild stage (primary encounter diagnosis) Comment: Discussed stable intraocular pressure both eyes. Plan: Pena visual field (HVF) 24-2 both eyes done today and reviewed in office. Reviewed changes both eyes = K vs. Retina. Continue Timolol 0.5% both eyes twice a day Continue Brimonidine 0.1% both eyes three times a day. Renewed today. Last visit: OCT nerve both eyes done today and reviewed in office. 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 Plan: Recommend frequent lubrication both eyes. Limitations discussed. (H04.123) Dry eye syndrome of bilateral lacrimal glands Comment: Discussed findings on exam. Plan: Recommend continue Artificial tears both eyes four times a day and as needed. Consider preservative free Artificial tears. Previous History: (E11.4903) 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 and macular edema, without long-term current use of insulin (HCC) Comment: Discussed retinopathy both eyes with diabetic macular edema both eyes, not clinically significant left eye. Plan: Continue blood sugar control and monitor with primary care physician. Recommend baseline Retina consult. Per Dr. Faulkner 05/15/2023: #. Severe NPDR, both eyes - extrafoveal Diabetic macular edema both eyes, stable OU #. Pseudophakia, both eyes - stable both eyes #. Primary open angle glaucoma (POAG) both eyes - 18 both eyes on drops (H52.7) Refractive error Comment: Discussed change in Manifest refraction. Plan: Manifest refraction updated and dispensed. 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 Plan: Monitor Follow up for 6 mos complete eye exam and OCT nerve both eyes. I have confirmed and edited as necessary the relevant ophthalmic history, ROS, and the neuro exam findings as obtained by others. I have seen and examined this patient. I have discussed the case and the management of this patient's care with the Resident/Fellow, if applicable. I also have reviewed and agree with the assessment and plan as stated above and agree with all of its relevant components. Moses Acevedo MD October 26, 2023 3:03 PM documented in this encounter [facility] 10-24-2023 Hospital Discharge instructions Moses Oliveira - 10/24/2023 11:00 AM EDT Nurse visit in [address] Perdomo in 2 weeks Triamcinolone to areas on legs along with Xeroform if needed ABD pads to upper legs Elevate legs to the level of the heart or above for 30 minutes daily and/or when sitting, a frequency of: as much as possible Unna Boot: Do not remove Unna Boot. Keep dry. If pain or swelling or discoloration of toes noted, elevate legs above level of heart for 1 hour. If no relief, call the center. If unable to reach center, remove boot and keep leg elevated until contact with center can be made. Multilayer Compression Therapy - 4 layers: Do not get legs with compression wrap wet. If wraps seem too tight, elevate legs above level of heart for one hour. If no relief, call the wound center. documented in this encounter [facility] 10-10-2023 History of Present illness Narrative [facility] Nurse Visit Note Dameon Potter AGE: 68 y.o. GENDER: female : 1955 EPISODE DATE: 10/10/23 Arrival Information: Patient Arrived: Walker Transfer Assistance: None Accompanied by: Self Any changes in medical history since last visit: No Added or removed any Medications: No Any new allergies: No Any falls since last visit: No Any hospitalizations or surgeries since last visit: No Assessment: Vitals: 10/10/23 1334 BP: (!) 162/85 Pulse: 65 Resp: 16 Temp: 36.4 C (97.6 F) Treatment: Wound: Bilateral lower leg Profore with Unna Boot Patient was seen for a nurse visit to have bilateral lower leg Profore with Unna Boot changed. Dressing was removed. Legs were cleansed with warm water and soap. Lotion was applied to lower legs. Xeroform, ABD pads, Profore with Unna boot compression wraps were applied bilaterally per provider's orders. Discharge Information: Patient was discharged in stable condition. Ambulatory Status: Walker Discharge Destination: home Transportation: Private Auto Accompanied by: patient Schedule Follow up Appointment: yes No orders of the defined types were placed in this encounter. documented in this encounter [facility] 10-01-2023 Telephone encounter Note RX REFILL REQUEST NAME OF MEDICATION AND DOSE ON MED LIST: Requested Prescriptions Pending Prescriptions Disp Refills Lantus SoloStar 100 UNIT/ML pen [Pharmacy Med Name: Lantus SoloStar 100 UNIT/ML Subcutaneous Solution Pen-injector] 15 mL 3 Sig: INJECT 16 UNITS SUBCUTANEOUSLY EVERY MORNING LAST OFFICE VISIT DATE:05/09/23-- NEXT OFFICE VISIT DATE: 11/02/23--Luz LAST LABS DONE: 05/19/23--A1C DATE OF LAST REFILL: 05/09/23 PHARMACY REQUESTED: [facility] 10-01-2023 Miscellaneous Notes RX REFILL REQUEST NAME OF MEDICATION AND DOSE ON MED LIST: Requested Prescriptions Pending Prescriptions Disp Refills Lantus SoloStar 100 UNIT/ML pen [Pharmacy Med Name: Lantus SoloStar 100 UNIT/ML Subcutaneous Solution Pen-injector] 15 mL 3 Sig: INJECT 16 UNITS SUBCUTANEOUSLY EVERY MORNING LAST OFFICE VISIT DATE:05/09/23-- NEXT OFFICE VISIT DATE: 11/02/23--Luz LAST LABS DONE: 05/19/23--A1C DATE OF LAST REFILL: 05/09/23 PHARMACY REQUESTED: [facility] documented in this encounter [facility] 09-26-2023 History of Present illness Narrative INITIAL VISIT - WOUND CARE Dameon Potter AGE: 68 y.o. GENDER: female : 1955 TODAY'S DATE: 09/26/2023 HISTORY OF PRESENT ILLNESS: Dameon Potter is a 68 y.o. female who presents today in F/U. No c/o's. No open areas. Lymphedema controlled with wraps. Wound Location : left, right, and leg The patients pain is Problem list: Patient Active Problem List: Endometrial cancer (CMS/HCC) (HCC) Obesity with body mass index greater than 30 OAB (overactive bladder) Uncontrolled type 2 diabetes mellitus with hyperglycemia, with long-term current use of insulin (HCC) Deficiency of nutrient elements Zinc deficiency Lymphedema Hepatic steatosis Calculus of gallbladder with chronic cholecystitis without obstruction Vitamin D deficiency Intestinal malabsorption Morbid obesity (HCC) Hypothyroidism Essential hypertension, benign Mixed hyperlipidemia Fatigue Obstructive sleep apnea SOB (shortness of breath) on exertion Gastritis without bleeding PND (post-nasal drip) Gastroesophageal reflux disease without esophagitis Asthma without status asthmaticus Candidal vulvovaginitis Cardiomegaly Cortical cataract of both eyes Diabetic retinopathy associated with type 2 diabetes mellitus (HCC) Diastolic dysfunction Dry eye syndrome of bilateral lacrimal glands Malignant neoplasm of uterus (HCC) Malnutrition of mild degree (Bianchi: 75% to less than 90% of standard weight) (HCC) Moderate recurrent major depression (HCC) Nuclear sclerotic cataract, bilateral Polycystic ovaries Posterior subcapsular age-related cataract of left eye Postmenopausal bleeding Primary open angle glaucoma of both eyes, mild stage Refractive error Chronic sinusitis Thyroglossal duct cyst Type 2 diabetes mellitus with hyperglycemia (HCC) Corneal epithelial basement membrane dystrophy Uncontrolled type 2 diabetes mellitus Non-pressure chronic ulcer left lower leg, 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) Review of Systems: General: Fever: Negative Night Sweats: Negative Eye: Blurry Vision:Negative Double Vision: Negative Ent: Headaches: Negative Sore throat: Negative Ear pain or drainage: Negative Allergy/Immunology: Hives: Negative Hematology/Lymphatic: Bleeding Problems: Negative Blood Clots: Negative Swollen Lymph Nodes: Negative Lungs: Cough: Negative SOB: Negative Cardiovascular: Chest Pain: Negative Palpitations:Negative GI: Nausea/Vomiting: Negative Abdominal Pain: Negative Change in Bowels: Negative : Dysuria: Negative Increase Urinary Frequency/Urgency: Negative Neuro: Seizures: Negative Confusion: Negative PAST MEDICAL HISTORY: Review of patient's family history indicates: Problem: Stroke Relation: Father Name: Age of Onset: (Not Specified) Problem: Obesity Relation: Mother Name: dementia Age of Onset: (Not Specified) Problem: Diabetes Relation: Mother Name: dementia Age of Onset: (Not Specified) Problem: High Blood Pressure Relation: Mother Name: dementia Age of Onset: (Not Specified) Problem: Heart disease Relation: Mother Name: dementia Age of Onset: (Not Specified) Problem: Stroke Relation: Paternal Grandfather Name: Age of Onset: (Not Specified) Problem: High Blood Pressure Relation: Father Name: Age of Onset: (Not Specified) Problem: Diabetes Relation: Father Name: Age of Onset: (Not Specified) Problem: Diabetes Relation: Paternal Grandfather Name: Age of Onset: (Not Specified) Problem: Heart attack Relation: Paternal Grandmother Name: Age of Onset: (Not Specified) Problem: Colon cancer Relation: Neg Hx Name: Age of Onset: (Not Specified) Problem: High Blood Pressure Relation: Brother Name: Age of Onset: (Not Specified) Problem: Cancer Relation: Father Name: Age of Onset: (Not Specified) Comment: bladder Problem: Obesity Relation: Father Name: Age of Onset: (Not Specified) Social History Socioeconomic History Marital status: Single Spouse name: Not on file Number of children: Not on file Years of education: Not on file Highest education level: Not on file Occupational History Not on file Tobacco Use Smoking status: Never Smokeless tobacco: Never Substance and Sexual Activity Alcohol use: No Drug use: No Sexual activity: Not on file Other Topics Concerns: Not on file Social History Narrative Not on file Social Determinants of Health Financial Resource Strain: Not on file Food Insecurity: Not on file Transportation Needs: Not on file Physical Activity: Not on file Stress: Not on file Social Connections: Not on file Intimate Partner Violence: Not on file Housing Stability: Not on file Past Surgical History: No date: CATARACT EXTRACTION; Bilateral 01/29/2018: CHOLECYSTECTOMY Comment: w/ LRYGB and Umbilical Hernia repair - [facility] 09/03/2020: DILATION AND CURETTAGE OF UTERUS Comment: with hysteroscopy 01/29/2018: GASTRIC BYPASS Comment: LRYGB w/ Lap Aggie and Umbilical Hernia repair, [facility] No date: GASTRIC BYPASS 09/30/2020: HYSTERECTOMY Comment: TLH/BSO; Dr. Cuauhtemoc Stubbs : MOUTH SURGERY Comment: gum removal to expose wisdom teeth 2000: THYROGLOSSAL DUCT EXCISION Comment: Nikole- Dr. Vin Keating No date: THYROIDECTOMY 01/29/2018: UMBILICAL HERNIA REPAIR Comment: w/ LRYGB and Lap Aggie - Zografakis 03/20/2017: UPPER GASTROINTESTINAL ENDOSCOPY Comment: pre op, Deepali 2012: WISDOM TOOTH EXTRACTION Comment: [facility] Past Medical History: No date: Anxiety No date: Asthma No date: Deficiency of nutrient elements No date: Depression No date: Dry eye No date: Fatigue No date: Gastritis No date: GERD (gastroesophageal reflux disease) No date: Glaucoma No date: Glaucoma No date: Hyperlipidemia No date: Hypertension No date: Hypothyroid No date: Hypothyroidism No date: Incontinence No date: Intestinal malabsorption No date: Lymph edema No date: Morbid obesity (HCC) No date: Obstructive sleep apnea No date: PMB (postmenopausal bleeding) No date: Polycystic ovarian syndrome No date: Psoriasis No date: SOB (shortness of breath) on exertion No date: Thyroglossal duct cyst No date: Type 2 diabetes mellitus without complication ([facility]) ([facility]) No date: Urinary tract infection No date: Uterine cancer ([facility]) ([facility]) 05/10/2017: Vitamin D deficiency 06/21/2018: Zinc deficiency Current Outpatient Medications on File Prior to Encounter: albuterol 108 (90 Base) MCG/ACT inhaler, Inhale 2 puffs every 6 hours as needed., Disp: , Rfl: atorvastatin (Lipitor) 40 MG tablet, Take by mouth daily., Disp: , Rfl: BD Insulin Syringe U/F 30G X 1/2 0.5 ML misc, 2 times daily with insulin, Disp: 200 each, Rfl: 3 brimonidine (Alphagan P) 0.1 % ophthalmic solution, 1 drop in the morning and 1 drop at noon and 1 drop in the evening., Disp: , Rfl: carvedilol (Coreg) 6.25 MG tablet, Take 12.5 mg by mouth in the morning and 12.5 mg in the evening., Disp: , Rfl: cholecalciferol (Vitamin D-3) 50 MCG (2000 UT) tablet, Take 2,000 Units by mouth in the morning., Disp: , Rfl: citalopram (CeleXA) 20 MG tablet, Take by mouth Every 24 hours., Disp: , Rfl: Continuous Blood Gluc Sensor (FreeStyle Satya 2 Sensor) [facility], 1 Device every 14 (fourteen) days., Disp: 9 each, Rfl: 3 cyanocobalamin (Vitamin B-12) 1000 MCG tablet, Take 1,000 mcg by mouth 1 (one) time per week., Disp: , Rfl: EPINEPHRINE HCL, ANAPHYLAXIS, IM, Inject into the shoulder, thigh, or buttocks., Disp: , Rfl: fluconazole (Diflucan) 150 MG tablet, TAKE 1 TABLET BY MOUTH 1 TIME FOR 1 DAY, Disp: , Rfl: fluconazole (Diflucan) 200 MG tablet, Take 1 tablet by mouth daily. PRN yeast infections, Disp: , Rfl: FREESTYLE LITE test strip, USE DIRECTED FOUR TIMES DAILY, Disp: , Rfl: glucose 4 g chewable tablet, Chew 16 g if needed for low blood sugar., Disp: , Rfl: hydrocortisone (West-Dmitri) 0.2 % cream, Apply topically every 12 hours., Disp: , Rfl: insulin glargine (Lantus) 100 UNIT/ML pen, Inject 16 Units under the skin every morning., Disp: 3 mL, Rfl: 12 insulin lispro (HumaLOG) 100 UNIT/ML pen injection, Inject 16 Units under the skin daily with supper., Disp: 14.4 mL, Rfl: 3 insulin pen needle 32G x 4 mm [facility], Use as instructed 2 times daily, Disp: 200 each, Rfl: 3 levothyroxine (Synthroid, Levoxyl) 175 MCG tablet, Take 1 tablet (175 mcg) by mouth every morning (before breakfast)., Disp: 90 tablet, Rfl: 3 loperamide (Imodium) 2 MG capsule, Take 2 mg by mouth as needed for diarrhea., Disp: , Rfl: mirabegron ER (Myrbetriq) 50 MG 24 hr tablet, Every 24 hours. PRN, Disp: , Rfl: multivitamin, Pediatric, (Flintstones Gummies) chewable tablet, Chew 2 tablets. With iron, Disp: , Rfl: olmesartan (BENIcar) 40 MG tablet, Take 1 tablet (40 mg) by mouth daily., Disp: 90 tablet, Rfl: 3 PROTEIN PO, Take by mouth., Disp: , Rfl: timolol (Timoptic) 0.5 % ophthalmic solution, 1 drop in the morning and 1 drop in the evening., Disp: , Rfl: [] triamcinolone (Kenalog) 0.1 % cream, Apply to affected area 1-2 times daily as needed. Avoid face and groin., Disp: 30 g, Rfl: 2 Current Facility-Administered Medications on File Prior to Encounter: triamcinolone (Kenalog) 0.1 % cream, , Topical, Once, Jeromeniurka Perdomo MD Allergies as of 09/26/2023 - Reviewed 09/26/2023 -- Bimatoprost -- Other -- noted 05/06/2018 -- Doxycycline -- Hives -- noted 05/24/2022 -- Erythromycin -- Hives -- noted 05/24/2022 -- Levaquin [levofloxacin] -- Hives -- noted 05/24/2022 -- Macrobid [nitrofurantoin] -- Hives -- noted 05/24/2022 -- Penicillins -- Hives -- noted 05/24/2022 -- Levofloxacin in d5w -- Swelling -- noted 03/01/2015 -- Macrolides and ketolides -- Hives -- noted 02/27/2004 -- Molds & smuts -- Itching -- noted 03/24/2015 -- Nitrofurantoin monohyd macro -- Itching -- noted 12/22/2014 -- Other -- Itching -- noted 02/11/2013 PHYSICAL EXAM: Blood pressure (!) 158/92, pulse 66, temperature 36.7 C (98.1 F), temperature source Infrared, resp. rate 20. Gen: A and O x 3, NAD, well nourished Eyes: Sclera non icterus, PERRL Head: Normocephalic, non-tender Neck: Supple, no adenopathy, thyroid non tender and no masses,no carotid bruits Lungs: CTA, symmetrical Chest: RRR, no murmurs Abd: Soft, NT, ND, no HSM, no hernias, no bruits Ext: No edema, no cyanosis Psych: reveals appropriate mood, memory and judgment, Neuro: Reveals no gross motor or sensory deficits, Msk: 5/5 strength all 4 extremities, no joint tenderness Vascular: Pulses Fem + Pop DP/PT + Assessment: BP (!) 158/92 (BP Location: Right arm, Patient Position: Sitting) Pulse 66 Temp 36.7 C (98.1 F) (Infrared) Resp 20 Wound Reference Date is when first assessed. Measurements shown are from today's visit. Wound BP (!) 158/92 (BP Location: Right arm, Patient Position: Sitting) Pulse 66 Temp 36.7 C (98.1 F) (Infrared) Resp 20 Wound : lymphedema controlled with wraps. Minimal chronic stasis dermatitis of thigh and leg right IMPRESSION:Lymphedema (primary encounter diagnosis) Plan: Plan for wound - Treatment: see orders Discussed appropriate home care of this wound. Wound redressed. Patient instructions were given. Follow up: as per protocol documented in this encounter [facility] 09-26-2023 Hospital Discharge instructions Zayda Bradford RN - 09/26/2023 11:00 AM EST Nurse visit in [address] Perdomo in 4 weeks Triamcinolone to areas on legs along with Xeroform if needed ABD pads to upper legs Elevate legs to the level of the heart or above for 30 minutes daily and/or when sitting, a frequency of: as much as possible Unna Boot: Do not remove Unna Boot. Keep dry. If pain or swelling or discoloration of toes noted, elevate legs above level of heart for 1 hour. If no relief, call the center. If unable to reach center, remove boot and keep leg elevated until contact with center can be made. Multilayer Compression Therapy - 4 layers: Do not get legs with compression wrap wet. If wraps seem too tight, elevate legs above level of heart for one hour. If no relief, call the wound center. documented in this encounter [facility] 09-13-2023 History of Present illness Narrative [facility] Nurse Visit Note Dameon Potter AGE: 68 y.o. GENDER: female : 1955 EPISODE DATE: 09/13/23 Arrival Information: Patient Arrived: Walker Transfer Assistance: None Accompanied by: self Any changes in medical history since last visit: No Added or removed any Medications: No Any new allergies: No Any falls since last visit: No Any hospitalizations or surgeries since last visit: No Assessment: Vitals: 09/13/23 1534 BP: (!) 158/92 Pulse: 66 Resp: 20 Temp: 36.7 C (98.1 F) Treatment: Wound: no open wounds Patient was seen for a nurse visit to have profores changed. Dressing was removed. 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 Ambulatory Status: Walker Discharge Destination: home Transportation: Private Auto Accompanied by: patient Schedule Follow up Appointment: no No orders of the defined types were placed in this encounter. documented in this encounter [facility] 09-11-2023 History of Present illness Narrative RADIATION ONCOLOGY FOLLOW UP PATIENT: Dameon Potter DATE OF SERVICE: 09/11/2023 : 1955 AGE: 68 y.o. 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 MMR proteins intact. STAGE: pT2 NX M0, II HISTORY OF PRESENT ILLNESS: Ms. Potter is a 68-year-old female who presented to her screening representative with postmenopausal bleeding. A D&C was performed on 09/03/2020 which identified grade 2 endometrial cancer, p53 wild-type. She was seen by Dr. Stubbs and on 09/30/2020 underwent a robotic hysterectomy with BSO. Per operative note, due to body habitus, sentinel node removal could not be performed. Pathology was noted to show involvement of the ectocervical/vaginal cuff margin. Patient was referred for radiation therapy. INTERVAL SINCE RADIATION: 2 years 7 months 11/29/20 - 01/03/21: 45.00/45.00 Gy to the Pelvis in 25 fractions of 1.80 Gy using the VMAT/Daily IGRT technique with 10 MV over 35 days. 01/14/21 - 01/28/21: 30.00/30.00 Gy to the Vaginal Brachy in 5 fractions of 6.00 Gy using the Brachytherapy technique with HDR: Ir192 over 14 days. INTERVAL HISTORY: The patient returns for follow-up today. She is doing well. Appetite and energy level are stable. She continues to follow with her multiple physicians. She continues to note the occasional diarrhea that she has had since her bypass surgery. She takes Imodium as required. She continues to have a urinary incontinence with the frequency and urgency. No vaginal discharge or bleeding. She continues to follow with wound care for the lymphedema management. No respiratory or cardiac complaints. She continues to follow with [facility] every 6 months. PAST MEDICAL HISTORY: Past Medical History: Diagnosis Date Anxiety Asthma Deficiency of nutrient elements Depression Dry eye Fatigue Gastritis GERD (gastroesophageal reflux disease) Glaucoma Glaucoma Hyperlipidemia Hypertension Hypothyroid Hypothyroidism Incontinence Intestinal malabsorption Lymph edema Morbid obesity (HCC) Obstructive sleep apnea PMB (postmenopausal bleeding) Polycystic ovarian syndrome Psoriasis SOB (shortness of breath) on exertion Thyroglossal duct cyst Type 2 diabetes mellitus without complication (CMS/HCC) (HCC) Urinary tract infection Uterine cancer (CMS/HCC) (HCC) Vitamin D deficiency 05/10/2017 Zinc deficiency 06/21/2018 PAST SURGICAL HISTORY: Past Surgical History: Procedure Laterality Date CATARACT EXTRACTION Bilateral CHOLECYSTECTOMY 01/29/2018 w/ LRYGB and Umbilical Hernia repair - [facility] DILATION AND CURETTAGE OF UTERUS 09/03/2020 with hysteroscopy GASTRIC BYPASS 01/29/2018 LRYGB w/ Lap Aggie and Umbilical Hernia repair, [facility] GASTRIC BYPASS HYSTERECTOMY 09/30/2020 TLH/BSO; Dr. Cuauhtemoc Stubbs MOUTH SURGERY 1979' gum removal to expose wisdom teeth THYROGLOSSAL DUCT EXCISION 2000 [facility]- Dr. Vin Keating THYROIDECTOMY UMBILICAL HERNIA REPAIR 01/29/2018 w/ LRYGB and Lap Aggie - [facility] UPPER GASTROINTESTINAL ENDOSCOPY 03/20/2017 pre op, Deepali WISDOM TOOTH EXTRACTION 2013 [facility] ALLERGIES: Allergies as of 09/11/2023 - Reviewed 09/11/2023 Allergen Reaction Noted Bimatoprost Other 05/06/2018 Doxycycline Hives 05/24/2022 Erythromycin Hives 05/24/2022 Levaquin [levofloxacin] Hives 05/24/2022 Macrobid [nitrofurantoin] Hives 05/24/2022 Penicillins Hives 05/24/2022 Levofloxacin in d5w Swelling 03/01/2015 Macrolides and ketolides Hives 02/27/2004 Molds & smuts Itching 03/24/2015 Nitrofurantoin monohyd macro Itching 12/22/2014 Other Itching 02/11/2013 MEDICATIONS: Current Outpatient Medications Medication Sig Dispense Refill albuterol 108 (90 Base) MCG/ACT inhaler Inhale 2 puffs every 6 hours as needed. atorvastatin (Lipitor) 40 MG tablet Take by mouth daily. BD Insulin Syringe U/F 30G X 1/2 0.5 ML misc 2 times daily with insulin 200 each 3 brimonidine (Alphagan P) 0.1 % ophthalmic solution 1 drop in the morning and 1 drop at noon and 1 drop in the evening. carvedilol (Coreg) 6.25 MG tablet Take 12.5 mg by mouth in the morning and 12.5 mg in the evening. cholecalciferol (Vitamin D-3) 50 MCG (2000 UT) tablet Take 2,000 Units by mouth in the morning. citalopram (CeleXA) 20 MG tablet Take by mouth Every 24 hours. Continuous Blood Gluc Sensor (FreeStyle Satya 2 Sensor) misc 1 Device every 14 (fourteen) days. 9 each 3 cyanocobalamin (Vitamin B-12) 1000 MCG tablet Take 1,000 mcg by mouth 1 (one) time per week. EPINEPHRINE HCL, ANAPHYLAXIS, IM Inject into the shoulder, thigh, or buttocks. fluconazole (Diflucan) 150 MG tablet TAKE 1 TABLET BY MOUTH 1 TIME FOR 1 DAY fluconazole (Diflucan) 200 MG tablet Take 1 tablet by mouth daily. PRN yeast infections FREESTYLE LITE test strip USE DIRECTED FOUR TIMES DAILY glucose 4 g chewable tablet Chew 16 g if needed for low blood sugar. hydrocortisone (West-Dmitri) 0.2 % cream Apply topically every 12 hours. insulin glargine (Lantus) 100 UNIT/ML pen Inject 16 Units under the skin every morning. 3 mL 12 insulin lispro (HumaLOG) 100 UNIT/ML pen injection Inject 16 Units under the skin daily with supper. 14.4 mL 3 insulin pen needle 32G x 4 mm misc Use as instructed 2 times daily 200 each 3 levothyroxine (Synthroid, Levoxyl) 175 MCG tablet Take 1 tablet (175 mcg) by mouth every morning (before breakfast). 90 tablet 3 loperamide (Imodium) 2 MG capsule Take 2 mg by mouth as needed for diarrhea. mirabegron ER (Myrbetriq) 50 MG 24 hr tablet Every 24 hours. PRN multivitamin, Pediatric, (Flintstones Gummies) chewable tablet Chew 2 tablets. With iron olmesartan (BENIcar) 40 MG tablet Take 1 tablet (40 mg) by mouth daily. 90 tablet 3 PROTEIN PO Take by mouth. timolol (Timoptic) 0.5 % ophthalmic solution 1 drop in the morning and 1 drop in the evening. triamcinolone (Kenalog) 0.1 % cream Apply to affected area 1-2 times daily as needed. Avoid face and groin. 30 g 2 Current Facility-Administered Medications Medication Dose Route Frequency Provider Last Rate Last Admin triamcinolone (Kenalog) 0.1 % cream Topical Once Jerome Perdomo MD REVIEW OF SYSTEMS: As above. Has dropped approximately 20 pounds since last visit. Pain score 0. KPS: 70-80 SUMMARY OF SIGNIFICIANT X-RAY/LABORATORY FINDINGS: CT for radiation planning on 01/10/2021 identified diverticular disease in the sigmoid without diverticulitis. Post-surgery changes noted. Hemoglobin A1c level of 10.2% on 05/09/2023. PHYSICAL EXAM: Nurse present for full visit. BP (!) 180/86 Pulse 79 Temp 98.2 F (36.8 C) Resp 18 Ht 5' 6 (1.676 m) Wt 260 lb 12.8 oz (118 kg) SpO2 97% BMI 42.09 kg/m /Pain Score: 0 - No pain /Fatigue Assessment: Able to perform daily activities GENERAL: Awake, alert, oriented x3, no anxiety, dressed appropriately, appears of stated age. Ambulates with wheeled walker. Speech pattern fluent. LUNGS: Clear to auscultation. No rales or rhonchi. HEART: Regular rate and rhythm, S1-S2 noted no murmur. NECK: Symmetric. NODES: No neck, supraclavicular, infraclavicular adenopathy. ABDOMEN: Soft, nontender, nondistended. No hepatosplenomegaly, no suspicious mass. KNITTER HAND: Normal external genitalia. Vaginal vault without mass or ulcerations. Mild erythema noted apically as prior with scattered telangiectasias. Mild erythema of the perineal region secondary to the urinary incontinence as prior. MUSCULOSKELETAL: Chronic lower extremity lymphedema identified. Legs are wrapped. SKIN: Under pannus and and groins is intact. IMPRESSION: Dameon Potter is a 68 y.o. female with history of uterine cancer. Clinically there is no sign of recurrence. She continues to follow with her other physicians. PLAN: Return to office in 1 year. Ino He MD [facility] Department of Radiation Oncology is an Accredited Facility of the [employer] ([employer]). Total time: 25 minutes in chart review, lab/radiology evaluation/interpretation, patient exam, patient counseling and care coordination. This document was completed utilizing speech recognition software. Grammatical errors, random word insertions, pronoun errors, and incomplete sentences are an occasional consequence of this system due to software limitations, ambient noise, and hardware issues. Any formal questions or concerns about the content, text or information contained within the body of this dictation should be directly addressed to the provider for clarification. documented in this encounter [facility] 09-11-2023 Nurse Note Pt here alone today for follow up with Dr. He. Pt denies any pain at this time. Appetite and energy are good. Pt states BP is always high at the doctor's offices. Pt reports occasional diarrhea- takes Imodium PRN. Pt reports frequency and urgency with urination. Pt states she is incontinent of urine. Pt denies any dysuria or hematuria. Pt also denies any vaginal bleeding or discharge. Pt states she is not utilizing vaginal dilators. 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 Medications and allergies reviewed. Pt set up for pelvic exam. [facility] 09-11-[address] He with pelvic exam. Pt tolerated well. [facility] 09-11-2023 Nurse Note Pt here alone today for follow up with Dr. He. Pt denies any pain at this time. Appetite and energy are good. Pt states BP is always high at the doctor's offices. Pt reports occasional diarrhea- takes Imodium PRN. Pt reports frequency and urgency with urination. Pt states she is incontinent of urine. Pt denies any dysuria or hematuria. Pt also denies any vaginal bleeding or discharge. Pt states she is not utilizing vaginal dilators. 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 Medications and allergies reviewed. Pt set up for pelvic exam. Assisted Dr. He with pelvic exam. Pt tolerated well. documented in this encounter [facility] 08-29-2023 History of Present illness Narrative INITIAL VISIT - WOUND CARE Dameon Potter AGE: 68 y.o. GENDER: female : 1955 TODAY'S DATE: 08/29/2023 HISTORY OF PRESENT ILLNESS: Dameon Potter is a 68 y.o. female who presents today in F/U. Lymphedema well-controlled. Has mild stasis dermatitis right thigh - will Rx. Wound Location : left, right, and leg The patients pain is Problem list: Patient Active Problem List: Endometrial cancer (CMS/HCC) (HCC) Obesity with body mass index greater than 30 OAB (overactive bladder) Uncontrolled type 2 diabetes mellitus with hyperglycemia, with long-term current use of insulin (HCC) Deficiency of nutrient elements Zinc deficiency Lymphedema Hepatic steatosis Calculus of gallbladder with chronic cholecystitis without obstruction Vitamin D deficiency Intestinal malabsorption Morbid obesity (HCC) Hypothyroidism Essential hypertension, benign Mixed hyperlipidemia Fatigue Obstructive sleep apnea SOB (shortness of breath) on exertion Gastritis without bleeding PND (post-nasal drip) Gastroesophageal reflux disease without esophagitis Asthma without status asthmaticus Candidal vulvovaginitis Cardiomegaly Cortical cataract of both eyes Diabetic retinopathy associated with type 2 diabetes mellitus ([facility]) Diastolic dysfunction Dry eye syndrome of bilateral lacrimal glands Malignant neoplasm of uterus ([facility]) Malnutrition of mild degree (Bianchi: 75% to less than 90% of standard weight) ([facility]) Moderate recurrent major depression ([facility]) Nuclear sclerotic cataract, bilateral Polycystic ovaries Posterior subcapsular age-related cataract of left eye Postmenopausal bleeding Primary open angle glaucoma of both eyes, mild stage Refractive error Chronic sinusitis Thyroglossal duct cyst Type 2 diabetes mellitus with hyperglycemia ([facility]) Corneal epithelial basement membrane dystrophy Uncontrolled type 2 diabetes mellitus Non-pressure chronic ulcer left lower leg, limited to breakdown skin ([facility]) Review of Systems: General: Fever: Negative Night Sweats: Negative Eye: Blurry Vision:Negative Double Vision: Negative Ent: Headaches: Negative Sore throat: Negative Ear pain or drainage: Negative Allergy/Immunology: Hives: Negative Hematology/Lymphatic: Bleeding Problems: Negative Blood Clots: Negative Swollen Lymph Nodes: Negative Lungs: Cough: Negative SOB: Negative Cardiovascular: Chest Pain: Negative Palpitations:Negative GI: Nausea/Vomiting: Negative Abdominal Pain: Negative Change in Bowels: Negative : Dysuria: Negative Increase Urinary Frequency/Urgency: Negative Neuro: Seizures: Negative Confusion: Negative PAST MEDICAL HISTORY: Review of patient's family history indicates: Problem: Stroke Relation: Father Name: Age of Onset: (Not Specified) Problem: Obesity Relation: Mother Name: dementia Age of Onset: (Not Specified) Problem: Diabetes Relation: Mother Name: dementia Age of Onset: (Not Specified) Problem: High Blood Pressure Relation: Mother Name: dementia Age of Onset: (Not Specified) Problem: Heart disease Relation: Mother Name: dementia Age of Onset: (Not Specified) Problem: Stroke Relation: Paternal Grandfather Name: Age of Onset: (Not Specified) Problem: High Blood Pressure Relation: Father Name: Age of Onset: (Not Specified) Problem: Diabetes Relation: Father Name: Age of Onset: (Not Specified) Problem: Diabetes Relation: Paternal Grandfather Name: Age of Onset: (Not Specified) Problem: Heart attack Relation: Paternal Grandmother Name: Age of Onset: (Not Specified) Problem: Colon cancer Relation: Neg Hx Name: Age of Onset: (Not Specified) Problem: High Blood Pressure Relation: Brother Name: Age of Onset: (Not Specified) Problem: Cancer Relation: Father Name: Age of Onset: (Not Specified) Comment: bladder Problem: Obesity Relation: Father Name: Age of Onset: (Not Specified) Social History Socioeconomic History Marital status: Single Spouse name: Not on file Number of children: Not on file Years of education: Not on file Highest education level: Not on file Occupational History Not on file Tobacco Use Smoking status: Never Smokeless tobacco: Never Substance and Sexual Activity Alcohol use: No Drug use: No Sexual activity: Not on file Other Topics Concerns: Not on file Social History Narrative Not on file Social Determinants of Health Financial Resource Strain: Not on file Food Insecurity: Not on file Transportation Needs: Not on file Physical Activity: Not on file Stress: Not on file Social Connections: Not on file Intimate Partner Violence: Not on file Housing Stability: Not on file Past Surgical History: No date: CATARACT EXTRACTION; Bilateral 01/29/2018: CHOLECYSTECTOMY Comment: w/ LRYGB and Umbilical Hernia repair - [facility] 09/03/2020: DILATION AND CURETTAGE OF UTERUS Comment: with hysteroscopy 01/29/2018: GASTRIC BYPASS Comment: LRYGB w/ Lap Aggie and Umbilical Hernia repair, Deepali No date: GASTRIC BYPASS 09/30/2020: HYSTERECTOMY Comment: TLH/BSO; Dr. Cuauhtemoc Stubbs : MOUTH SURGERY Comment: gum removal to expose wisdom teeth 2000: THYROGLOSSAL DUCT EXCISION Comment: [facility]- Dr. Vin Keating No date: THYROIDECTOMY 01/29/2018: UMBILICAL HERNIA REPAIR Comment: w/ LRYGB and Lap Aggie - [facility] 03/20/2017: UPPER GASTROINTESTINAL ENDOSCOPY Comment: pre opDeepali 2012: WISDOM TOOTH EXTRACTION Comment: [facility] Past Medical History: No date: Anxiety No date: Asthma No date: Deficiency of nutrient elements No date: Depression No date: Dry eye No date: Fatigue No date: Gastritis No date: GERD (gastroesophageal reflux disease) No date: Glaucoma No date: Glaucoma No date: Hyperlipidemia No date: Hypertension No date: Hypothyroid No date: Hypothyroidism No date: Incontinence No date: Intestinal malabsorption No date: Lymph edema No date: Morbid obesity (HCC) No date: Obstructive sleep apnea No date: PMB (postmenopausal bleeding) No date: Polycystic ovarian syndrome No date: Psoriasis No date: SOB (shortness of breath) on exertion No date: Thyroglossal duct cyst No date: Type 2 diabetes mellitus without complication ([facility]) ([facility]) No date: Urinary tract infection No date: Uterine cancer ([facility]) ([facility]) 05/10/2017: Vitamin D deficiency 06/21/2018: Zinc deficiency Current Outpatient Medications on File Prior to Encounter: albuterol 108 (90 Base) MCG/ACT inhaler, Inhale 2 puffs every 6 hours as needed., Disp: , Rfl: atorvastatin (Lipitor) 40 MG tablet, Take by mouth daily., Disp: , Rfl: BD Insulin Syringe U/F 30G X 1/2 0.5 ML misc, 2 times daily with insulin, Disp: 200 each, Rfl: 3 brimonidine (Alphagan P) 0.1 % ophthalmic solution, 1 drop in the morning and 1 drop at noon and 1 drop in the evening., Disp: , Rfl: carvedilol (Coreg) 6.25 MG tablet, Take 12.5 mg by mouth in the morning and 12.5 mg in the evening., Disp: , Rfl: cholecalciferol (Vitamin D-3) 50 MCG (2000 UT) tablet, Take 2,000 Units by mouth in the morning., Disp: , Rfl: citalopram (CeleXA) 20 MG tablet, Take by mouth Every 24 hours., Disp: , Rfl: Continuous Blood Gluc Sensor (FreeStyle Satya 2 Sensor) [facility], 1 Device every 14 (fourteen) days., Disp: 9 each, Rfl: 3 cyanocobalamin (Vitamin B-12) 1000 MCG tablet, Take 1,000 mcg by mouth 1 (one) time per week., Disp: , Rfl: EPINEPHRINE HCL, ANAPHYLAXIS, IM, Inject into the shoulder, thigh, or buttocks., Disp: , Rfl: fluconazole (Diflucan) 150 MG tablet, TAKE 1 TABLET BY MOUTH 1 TIME FOR 1 DAY, Disp: , Rfl: fluconazole (Diflucan) 200 MG tablet, Take 1 tablet by mouth daily. PRN yeast infections, Disp: , Rfl: FREESTYLE LITE test strip, USE DIRECTED FOUR TIMES DAILY, Disp: , Rfl: glucose 4 g chewable tablet, Chew 16 g if needed for low blood sugar., Disp: , Rfl: hydrocortisone (West-Dmitri) 0.2 % cream, Apply topically every 12 hours., Disp: , Rfl: insulin glargine (Lantus) 100 UNIT/ML pen, Inject 16 Units under the skin every morning., Disp: 3 mL, Rfl: 12 insulin lispro (HumaLOG) 100 UNIT/ML pen injection, Inject 16 Units under the skin daily with supper., Disp: 14.4 mL, Rfl: 3 insulin pen needle 32G x 4 mm misc, Use as instructed 2 times daily, Disp: 200 each, Rfl: 3 levothyroxine (Synthroid, Levoxyl) 175 MCG tablet, Take 1 tablet (175 mcg) by mouth every morning (before breakfast)., Disp: 90 tablet, Rfl: 3 mirabegron ER (Myrbetriq) 50 MG 24 hr tablet, Every 24 hours. PRN, Disp: , Rfl: multivitamin, Pediatric, (Flintstones Gummies) chewable tablet, Chew 2 tablets. With iron, Disp: , Rfl: olmesartan (BENIcar) 40 MG tablet, Take 1 tablet (40 mg) by mouth daily., Disp: 90 tablet, Rfl: 3 PROTEIN PO, Take by mouth., Disp: , Rfl: timolol (Timoptic) 0.5 % ophthalmic solution, 1 drop in the morning and 1 drop in the evening., Disp: , Rfl: triamcinolone (Kenalog) 0.1 % cream, Apply to affected area 1-2 times daily as needed. Avoid face and groin., Disp: 30 g, Rfl: 2 Current Facility-Administered Medications on File Prior to Encounter: triamcinolone (Kenalog) 0.1 % cream, , Topical, Once, Jerome Perdomo MD Allergies as of 08/29/2023 - Reviewed 08/29/2023 -- Bimatoprost -- Other -- noted 05/06/2018 -- Doxycycline -- Hives -- noted 05/24/2022 -- Erythromycin -- Hives -- noted 05/24/2022 -- Levaquin [levofloxacin] -- Hives -- noted 05/24/2022 -- Macrobid [nitrofurantoin] -- Hives -- noted 05/24/2022 -- Penicillins -- Hives -- noted 05/24/2022 -- Levofloxacin in d5w -- Swelling -- noted 03/01/2015 -- Macrolides and ketolides -- Hives -- noted 02/27/2004 -- Molds & smuts -- Itching -- noted 03/24/2015 -- Nitrofurantoin monohyd macro -- Itching -- noted 12/22/2014 -- Other -- Itching -- noted 02/11/2013 PHYSICAL EXAM: Blood pressure (!) 175/76, pulse 61, temperature 36.7 C (98.1 F), temperature source Infrared, resp. rate 20. Gen: A and O x 3, NAD, well nourished Eyes: Sclera non icterus, PERRL Head: Normocephalic, non-tender Neck: Supple, no adenopathy, thyroid non tender and no masses,no carotid bruits Lungs: CTA, symmetrical Chest: RRR, no murmurs Abd: Soft, NT, ND, no HSM, no hernias, no bruits Ext: No edema, no cyanosis Psych: reveals appropriate mood, memory and judgment, Neuro: Reveals no gross motor or sensory deficits, Msk: 5/5 strength all 4 extremities, no joint tenderness Vascular: Pulses Fem + Pop DP/PT + Assessment: BP (!) 175/76 (BP Location: Right arm, Patient Position: Sitting) Pulse 61 Temp 36.7 C (98.1 F) (Infrared) Resp 20 Wound Reference Date is when first assessed. Measurements shown are from today's visit. Wound BP (!) 175/76 (BP Location: Right arm, Patient Position: Sitting) Pulse 61 Temp 36.7 C (98.1 F) (Infrared) Resp 20 Wound : see CAHUILLA IMPRESSION:Lymphedema (primary encounter diagnosis) Plan: Plan for wound - Treatment: see orders Discussed appropriate home care of this wound. Wound redressed. Patient instructions were given. Follow up: as per protocol documented in this encounter [facility] 08-29-2023 Hospital Discharge instructions Zayda Bradford RN - 08/29/2023 11:00 AM EST Nurse visit in [address] Perdomo in 4 weeks Triamcinolone to areas on thighs along with Xeroform if needed Elevate legs to the level of the heart or above for 30 minutes daily and/or when sitting, a frequency of: as much as possible Unna Boot: Do not remove Unna Boot. Keep dry. If pain or swelling or discoloration of toes noted, elevate legs above level of heart for 1 hour. If no relief, call the center. If unable to reach center, remove boot and keep leg elevated until contact with center can be made. Multilayer Compression Therapy - 4 layers: Do not get legs with compression wrap wet. If wraps seem too tight, elevate legs above level of heart for one hour. If no relief, call the wound center. documented in this encounter [facility] 08-27-2023 Telephone encounter Note Scotty Paez. This patient is part of my research study. 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 Thanks AMARUY Aguilera CNP [facility] 08-27-2023 Miscellaneous Notes Scotty Paez. This patient is part of my research study. 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 Thanks AMAURY Aguilera CNP documented in this encounter [facility] 08-15-2023 History of Present illness Narrative [facility] Nurse Visit Note Dameon Potter AGE: 68 y.o. GENDER: female : 1955 EPISODE DATE: 08/15/23 Arrival Information: Patient Arrived: Walker Transfer Assistance: Manual Accompanied by: self Any changes in medical history since last visit: No Added or removed any Medications: No Any new allergies: No Any falls since last visit: No Any hospitalizations or surgeries since last visit: No Assessment: Vitals: 08/15/23 1559 BP: (!) 184/96 Pulse: 60 Resp: 16 Temp: 37.1 C (98.7 F) Treatment: Wound: bilateral lower leg lymphedema Patient was seen for a nurse visit to have bilateral profores changed. Dressing was removed. Wound was cleansed with soap and water, triamcinolone was applied to periwound, unna boot and profore compression wrap was applied per provider's orders. Discharge Information: Patient was discharged in stable condition. Ambulatory Status: Walker Discharge Destination: home Transportation: Private Auto Accompanied by: patient Schedule Follow up Appointment: yes No orders of the defined types were placed in this encounter. documented in this encounter [facility] 08-01-2023 History of Present illness Narrative INITIAL VISIT - WOUND CARE Dameon Potter AGE: 68 y.o. GENDER: female : 1955 TODAY'S DATE: 08/01/2023 HISTORY OF PRESENT ILLNESS: Dameon Potter is a 68 y.o. female who presents today for wound check. No open areas. Has chronic lymphedema, mild stasis dermatitis of right inner thigh. Lymphedema otherwise controlled with wraps. Wound Location : left, right, and leg The patients pain is Problem list: Patient Active Problem List: Endometrial cancer (CMS/HCC) (HCC) Obesity with body mass index greater than 30 OAB (overactive bladder) Uncontrolled type 2 diabetes mellitus with hyperglycemia, with long-term current use of insulin (HCC) Deficiency of nutrient elements Zinc deficiency Lymphedema Hepatic steatosis Calculus of gallbladder with chronic cholecystitis without obstruction Vitamin D deficiency Intestinal malabsorption Morbid obesity (HCC) Hypothyroidism Essential hypertension, benign Mixed hyperlipidemia Fatigue Obstructive sleep apnea SOB (shortness of breath) on exertion Gastritis without bleeding PND (post-nasal drip) Gastroesophageal reflux disease without esophagitis Asthma without status asthmaticus Candidal vulvovaginitis Cardiomegaly Cortical cataract of both eyes Diabetic retinopathy associated with type 2 diabetes mellitus ([facility]) Diastolic dysfunction Dry eye syndrome of bilateral lacrimal glands Malignant neoplasm of uterus ([facility]) Malnutrition of mild degree (Bianchi: 75% to less than 90% of standard weight) ([facility]) Moderate recurrent major depression ([facility]) Nuclear sclerotic cataract, bilateral Polycystic ovaries Posterior subcapsular age-related cataract of left eye Postmenopausal bleeding Primary open angle glaucoma of both eyes, mild stage Refractive error Chronic sinusitis Thyroglossal duct cyst Type 2 diabetes mellitus with hyperglycemia ([facility]) Corneal epithelial basement membrane dystrophy Uncontrolled type 2 diabetes mellitus Non-pressure chronic ulcer left lower leg, limited to breakdown skin ([facility]) Review of Systems: General: Fever: Negative Night Sweats: Negative Eye: Blurry Vision:Negative Double Vision: Negative Ent: Headaches: Negative Sore throat: Negative Ear pain or drainage: Negative Allergy/Immunology: Hives: Negative Hematology/Lymphatic: Bleeding Problems: Negative Blood Clots: Negative Swollen Lymph Nodes: Negative Lungs: Cough: Negative SOB: Negative Cardiovascular: Chest Pain: Negative Palpitations:Negative GI: Nausea/Vomiting: Negative Abdominal Pain: Negative Change in Bowels: Negative : Dysuria: Negative Increase Urinary Frequency/Urgency: Negative Neuro: Seizures: Negative Confusion: Negative PAST MEDICAL HISTORY: Review of patient's family history indicates: Problem: Stroke Relation: Father Name: Age of Onset: (Not Specified) Problem: Obesity Relation: Mother Name: dementia Age of Onset: (Not Specified) Problem: Diabetes Relation: Mother Name: dementia Age of Onset: (Not Specified) Problem: High Blood Pressure Relation: Mother Name: dementia Age of Onset: (Not Specified) Problem: Heart disease Relation: Mother Name: dementia Age of Onset: (Not Specified) Problem: Stroke Relation: Paternal Grandfather Name: Age of Onset: (Not Specified) Problem: High Blood Pressure Relation: Father Name: Age of Onset: (Not Specified) Problem: Diabetes Relation: Father Name: Age of Onset: (Not Specified) Problem: Diabetes Relation: Paternal Grandfather Name: Age of Onset: (Not Specified) Problem: Heart attack Relation: Paternal Grandmother Name: Age of Onset: (Not Specified) Problem: Colon cancer Relation: Neg Hx Name: Age of Onset: (Not Specified) Problem: High Blood Pressure Relation: Brother Name: Age of Onset: (Not Specified) Problem: Cancer Relation: Father Name: Age of Onset: (Not Specified) Comment: bladder Problem: Obesity Relation: Father Name: Age of Onset: (Not Specified) Social History Socioeconomic History Marital status: Single Spouse name: Not on file Number of children: Not on file Years of education: Not on file Highest education level: Not on file Occupational History Not on file Tobacco Use Smoking status: Never Smokeless tobacco: Never Substance and Sexual Activity Alcohol use: No Drug use: No Sexual activity: Not on file Other Topics Concerns: Not on file Social History Narrative Not on file Social Determinants of Health Financial Resource Strain: Not on file Food Insecurity: Not on file Transportation Needs: Not on file Physical Activity: Not on file Stress: Not on file Social Connections: Not on file Intimate Partner Violence: Not on file Housing Stability: Not on file Past Surgical History: No date: CATARACT EXTRACTION; Bilateral 01/29/2018: CHOLECYSTECTOMY Comment: w/ LRYGB and Umbilical Hernia repair - Zografakis 09/03/2020: DILATION AND CURETTAGE OF UTERUS Comment: with hysteroscopy 01/29/2018: GASTRIC BYPASS Comment: LRYGB w/ Lap Aggie and Umbilical Hernia repair, Deepali No date: GASTRIC BYPASS 09/30/2020: HYSTERECTOMY Comment: TLH/BSO; Dr. Cuauhtemoc Stubbs s: MOUTH SURGERY Comment: gum removal to expose wisdom teeth 2000: THYROGLOSSAL DUCT EXCISION Comment: Nikole- Dr. Vin Keating No date: THYROIDECTOMY 01/29/2018: UMBILICAL HERNIA REPAIR Comment: w/ LRYGB and Lap Aggie - Zografakis 03/20/2017: UPPER GASTROINTESTINAL ENDOSCOPY Comment: pre opDeepali 2012: WISDOM TOOTH EXTRACTION Comment: [facility] Past Medical History: No date: Anxiety No date: Asthma No date: Deficiency of nutrient elements No date: Depression No date: Dry eye No date: Fatigue No date: Gastritis No date: GERD (gastroesophageal reflux disease) No date: Glaucoma No date: Glaucoma No date: Hyperlipidemia No date: Hypertension No date: Hypothyroid No date: Hypothyroidism No date: Incontinence No date: Intestinal malabsorption No date: Lymph edema No date: Morbid obesity (HCC) No date: Obstructive sleep apnea No date: PMB (postmenopausal bleeding) No date: Polycystic ovarian syndrome No date: Psoriasis No date: SOB (shortness of breath) on exertion No date: Thyroglossal duct cyst No date: Type 2 diabetes mellitus without complication ([facility]) ([facility]) No date: Urinary tract infection No date: Uterine cancer ([facility]) ([facility]) 05/10/2017: Vitamin D deficiency 06/21/2018: Zinc deficiency Current Outpatient Medications on File Prior to Encounter: albuterol 108 (90 Base) MCG/ACT inhaler, Inhale 2 puffs every 6 hours as needed., Disp: , Rfl: atorvastatin (Lipitor) 40 MG tablet, Take by mouth daily., Disp: , Rfl: BD Insulin Syringe U/F 30G X 1/2 0.5 ML misc, 2 times daily with insulin, Disp: 200 each, Rfl: 3 brimonidine (Alphagan P) 0.1 % ophthalmic solution, 1 drop in the morning and 1 drop at noon and 1 drop in the evening., Disp: , Rfl: carvedilol (Coreg) 6.25 MG tablet, Take 12.5 mg by mouth in the morning and 12.5 mg in the evening., Disp: , Rfl: cholecalciferol (Vitamin D-3) 50 MCG (2000 UT) tablet, Take 2,000 Units by mouth in the morning., Disp: , Rfl: citalopram (CeleXA) 20 MG tablet, Take by mouth Every 24 hours., Disp: , Rfl: Continuous Blood Gluc Sensor (FreeStyle Satya 2 Sensor) [facility], 1 Device every 14 (fourteen) days., Disp: 9 each, Rfl: 3 cyanocobalamin (Vitamin B-12) 1000 MCG tablet, Take 1,000 mcg by mouth 1 (one) time per week., Disp: , Rfl: EPINEPHRINE HCL, ANAPHYLAXIS, IM, Inject into the shoulder, thigh, or buttocks., Disp: , Rfl: fluconazole (Diflucan) 150 MG tablet, TAKE 1 TABLET BY MOUTH 1 TIME FOR 1 DAY, Disp: , Rfl: fluconazole (Diflucan) 200 MG tablet, Take 1 tablet by mouth daily. PRN yeast infections, Disp: , Rfl: FREESTYLE LITE test strip, USE DIRECTED FOUR TIMES DAILY, Disp: , Rfl: glucose 4 g chewable tablet, Chew 16 g if needed for low blood sugar., Disp: , Rfl: hydrocortisone (West-Dmitri) 0.2 % cream, Apply topically every 12 hours., Disp: , Rfl: insulin glargine (Lantus) 100 UNIT/ML pen, Inject 16 Units under the skin every morning., Disp: 3 mL, Rfl: 12 insulin lispro (HumaLOG) 100 UNIT/ML pen injection, Inject 16 Units under the skin daily with supper., Disp: 14.4 mL, Rfl: 3 insulin pen needle 32G x 4 mm misc, Use as instructed 2 times daily, Disp: 200 each, Rfl: 3 levothyroxine (Synthroid, Levoxyl) 175 MCG tablet, Take 1 tablet (175 mcg) by mouth every morning (before breakfast)., Disp: 90 tablet, Rfl: 3 mirabegron ER (Myrbetriq) 50 MG 24 hr tablet, Every 24 hours. PRN, Disp: , Rfl: multivitamin, Pediatric, (Flintstones Gummies) chewable tablet, Chew 2 tablets. With iron, Disp: , Rfl: olmesartan (BENIcar) 40 MG tablet, Take 1 tablet (40 mg) by mouth daily., Disp: 90 tablet, Rfl: 3 PROTEIN PO, Take by mouth., Disp: , Rfl: timolol (Timoptic) 0.5 % ophthalmic solution, 1 drop in the morning and 1 drop in the evening., Disp: , Rfl: triamcinolone (Kenalog) 0.1 % cream, Apply to affected area 1-2 times daily as needed. Avoid face and groin., Disp: 30 g, Rfl: 2 Current Facility-Administered Medications on File Prior to Encounter: triamcinolone (Kenalog) 0.1 % cream, , Topical, Once, Jerome Perdomo MD Allergies as of 08/01/2023 - Reviewed 08/01/2023 -- Bimatoprost -- Other -- noted 05/06/2018 -- Doxycycline -- Hives -- noted 05/24/2022 -- Erythromycin -- Hives -- noted 05/24/2022 -- Levaquin [levofloxacin] -- Hives -- noted 05/24/2022 -- Macrobid [nitrofurantoin] -- Hives -- noted 05/24/2022 -- Penicillins -- Hives -- noted 05/24/2022 -- Levofloxacin in d5w -- Swelling -- noted 03/01/2015 -- Macrolides and ketolides -- Hives -- noted 02/27/2004 -- Molds & smuts -- Itching -- noted 03/24/2015 -- Nitrofurantoin monohyd macro -- Itching -- noted 12/22/2014 -- Other -- Itching -- noted 02/11/2013 PHYSICAL EXAM: Blood pressure (!) 196/84, pulse 74, temperature 36.5 C (97.7 F), temperature source Infrared, resp. rate 18. Gen: A and O x 3, NAD, well nourished Eyes: Sclera non icterus, PERRL Head: Normocephalic, non-tender Neck: Supple, no adenopathy, thyroid non tender and no masses,no carotid bruits Lungs: CTA, symmetrical Chest: RRR, no murmurs Abd: Soft, NT, ND, no HSM, no hernias, no bruits Ext: No edema, no cyanosis Psych: reveals appropriate mood, memory and judgment, Neuro: Reveals no gross motor or sensory deficits, Msk: 5/5 strength all 4 extremities, no joint tenderness Vascular: Pulses Fem + Pop + DP/PT + Assessment: BP (!) 196/84 (BP Location: Left arm, Patient Position: Sitting, BP Cuff Size: Adult) Pulse 74 Temp 36.5 C (97.7 F) (Infrared) Resp 18 Wound Reference Date is when first assessed. Measurements shown are from today's visit. Wound BP (!) 196/84 (BP Location: Left arm, Patient Position: Sitting, BP Cuff Size: Adult) Pulse 74 Temp 36.5 C (97.7 F) (Infrared) Resp 18 Wound : see CAHUILLA IMPRESSION:Lymphedema (primary encounter diagnosis) Plan: Plan for wound - Treatment: see orders. Discussed appropriate home care of this wound. Wound redressed. Patient instructions were given. Follow up: as per plan documented in this encounter [facility] 08-01-2023 Hospital Discharge instructions Zayda Bradford RN - 08/01/2023 11:00 AM EST Nurse visit in [address] Perdomo in 4 weeks Triamcinolone to red areas on both legs Elevate legs to the level of the heart or above for 30 minutes daily and/or when sitting, a frequency of: as much as possible Unna Boot: Do not remove Unna Boot. Keep dry. If pain or swelling or discoloration of toes noted, elevate legs above level of heart for 1 hour. If no relief, call the center. If unable to reach center, remove boot and keep leg elevated until contact with center can be made. Multilayer Compression Therapy - 4 layers: Do not get legs with compression wrap wet. If wraps seem too tight, elevate legs above level of heart for one hour. If no relief, call the wound center. documented in this encounter [facility] 07-18-2023 History of Present illness Narrative [facility] Nurse Visit Note Dameon Potter AGE: 68 y.o. GENDER: female : 1955 EPISODE DATE: 07/18/23 Arrival Information: Patient Arrived: Walker Transfer Assistance: Manual Accompanied by: self Any changes in medical history since last visit: No Added or removed any Medications: No Any new allergies: No Any falls since last visit: No Any hospitalizations or surgeries since last visit: No Assessment: There were no vitals filed for this visit. Treatment: Wound: bilateral lower leg Patient was seen for a nurse visit to have unaboot and profores changed. Dressing was removed. Wound was cleansed with soap and water, moisturizing lotion was applied to periwound, heel cup ABD applied to heels, bilateral unaboot and profore compression wrap was applied per provider's orders. Discharge Information: Patient was discharged in stable condition. Ambulatory Status: Walker Discharge Destination: home Transportation: Private Auto Accompanied by: patient Schedule Follow up Appointment: yes No orders of the defined types were placed in this encounter. documented in this encounter [facility] 07-04-2023 History of Present illness Narrative [facility] Nurse Visit Note Dameon Potter AGE: 68 y.o. GENDER: female : 1955 EPISODE DATE: 07/04/23 Arrival Information: Patient Arrived: Walker Transfer Assistance: None Accompanied by: self Any changes in medical history since last visit: No Added or removed any Medications: No Any new allergies: No Any falls since last visit: No Any hospitalizations or surgeries since last visit: No Assessment: Vitals: 07/04/23 1604 BP: (!) 145/84 Pulse: 74 Resp: 18 Temp: 36.7 C (98.1 F) Treatment: Wound: No open wounds Patient was seen for a nurse visit to have bilat. profores changed. Dressing was removed. Wound was cleansed with N/A. Moisterizer was applied to bilat legs. Bilat. Unnaboot and profores compression wraps were applied per provider's orders. Discharge Information: Patient was discharged in stable condition. Ambulatory Status: Walker Discharge Destination: home Transportation: Private Auto Accompanied by: patient Schedule Follow up Appointment: yes No orders of the defined types were placed in this encounter. documented in this encounter [facility] 06-20-2023 History of Present illness Narrative INITIAL VISIT - WOUND CARE Dameon Potter AGE: 68 y.o. GENDER: female : 1955 TODAY'S DATE: 06/20/2023 HISTORY OF PRESENT ILLNESS: Dameon Potter is a 68 y.o. female who presents today inF/U. No open areas or irritation. Lymphedema controlled with wraps. Wound Location : left, right, and leg The patients pain is Problem list: Patient Active Problem List: Endometrial cancer (CMS/HCC) (HCC) Obesity with body mass index greater than 30 OAB (overactive bladder) Uncontrolled type 2 diabetes mellitus with hyperglycemia, with long-term current use of insulin (HCC) Deficiency of nutrient elements Zinc deficiency Lymphedema Hepatic steatosis Calculus of gallbladder with chronic cholecystitis without obstruction Vitamin D deficiency Intestinal malabsorption Morbid obesity (HCC) Hypothyroidism Essential hypertension, benign Mixed hyperlipidemia Fatigue Obstructive sleep apnea SOB (shortness of breath) on exertion Gastritis without bleeding PND (post-nasal drip) Gastroesophageal reflux disease without esophagitis Asthma without status asthmaticus Candidal vulvovaginitis Cardiomegaly Cortical cataract of both eyes Diabetic retinopathy associated with type 2 diabetes mellitus (HCC) Diastolic dysfunction Dry eye syndrome of bilateral lacrimal glands Malignant neoplasm of uterus ([facility]) Malnutrition of mild degree (Bianchi: 75% to less than 90% of standard weight) ([facility]) Moderate recurrent major depression ([facility]) Nuclear sclerotic cataract, bilateral Polycystic ovaries Posterior subcapsular age-related cataract of left eye Postmenopausal bleeding Primary open angle glaucoma of both eyes, mild stage Refractive error Chronic sinusitis Thyroglossal duct cyst Type 2 diabetes mellitus with hyperglycemia ([facility]) Corneal epithelial basement membrane dystrophy Uncontrolled type 2 diabetes mellitus Non-pressure chronic ulcer left lower leg, limited to breakdown skin ([facility]) Review of Systems: General: Fever: Negative Night Sweats: Negative Eye: Blurry Vision:Negative Double Vision: Negative Ent: Headaches: Negative Sore throat: Negative Ear pain or drainage: Negative Allergy/Immunology: Hives: Negative Hematology/Lymphatic: Bleeding Problems: Negative Blood Clots: Negative Swollen Lymph Nodes: Negative Lungs: Cough: Negative SOB: Negative Cardiovascular: Chest Pain: Negative Palpitations:Negative GI: Nausea/Vomiting: Negative Abdominal Pain: Negative Change in Bowels: Negative : Dysuria: Negative Increase Urinary Frequency/Urgency: Negative Neuro: Seizures: Negative Confusion: Negative PAST MEDICAL HISTORY: Review of patient's family history indicates: Problem: Stroke Relation: Father Name: Age of Onset: (Not Specified) Problem: Obesity Relation: Mother Name: dementia Age of Onset: (Not Specified) Problem: Diabetes Relation: Mother Name: dementia Age of Onset: (Not Specified) Problem: High Blood Pressure Relation: Mother Name: dementia Age of Onset: (Not Specified) Problem: Heart disease Relation: Mother Name: dementia Age of Onset: (Not Specified) Problem: Stroke Relation: Paternal Grandfather Name: Age of Onset: (Not Specified) Problem: High Blood Pressure Relation: Father Name: Age of Onset: (Not Specified) Problem: Diabetes Relation: Father Name: Age of Onset: (Not Specified) Problem: Diabetes Relation: Paternal Grandfather Name: Age of Onset: (Not Specified) Problem: Heart attack Relation: Paternal Grandmother Name: Age of Onset: (Not Specified) Problem: Colon cancer Relation: Neg Hx Name: Age of Onset: (Not Specified) Problem: High Blood Pressure Relation: Brother Name: Age of Onset: (Not Specified) Problem: Cancer Relation: Father Name: Age of Onset: (Not Specified) Comment: bladder Problem: Obesity Relation: Father Name: Age of Onset: (Not Specified) Social History Socioeconomic History Marital status: Single Spouse name: Not on file Number of children: Not on file Years of education: Not on file Highest education level: Not on file Occupational History Not on file Tobacco Use Smoking status: Never Smokeless tobacco: Never Substance and Sexual Activity Alcohol use: No Drug use: No Sexual activity: Not on file Other Topics Concerns: Not on file Social History Narrative Not on file Social Determinants of Health Financial Resource Strain: Not on file Food Insecurity: Not on file Transportation Needs: Not on file Physical Activity: Not on file Stress: Not on file Social Connections: Not on file Intimate Partner Violence: Not on file Housing Stability: Not on file Past Surgical History: No date: CATARACT EXTRACTION; Bilateral 01/29/2018: CHOLECYSTECTOMY Comment: w/ LRYGB and Umbilical Hernia repair - Tiffanygrafakis 09/03/2020: DILATION AND CURETTAGE OF UTERUS Comment: with hysteroscopy 01/29/2018: GASTRIC BYPASS Comment: LRYGB w/ Lap Aggie [facility] No date: GASTRIC BYPASS 09/30/2020: HYSTERECTOMY Comment: TLH/BSO; Dr. Cuauhtemoc Stubbs 1979': MOUTH SURGERY Comment: gum removal to expose wisdom teeth 2000: THYROGLOSSAL DUCT EXCISION Comment: [place]- Dr. Vin Keating No date: THYROIDECTOMY 01/29/2018: UMBILICAL HERNIA REPAIR Comment: w/ LRYGB and Lap Aggie - Zografakis 03/20/2017: UPPER GASTROINTESTINAL ENDOSCOPY Comment: pre opDeepali 2012: WISDOM TOOTH EXTRACTION Comment: Dental Works Past Medical History: No date: Anxiety No date: Asthma No date: Deficiency of nutrient elements No date: Depression No date: Dry eye No date: Fatigue No date: Gastritis No date: GERD (gastroesophageal reflux disease) No date: Glaucoma No date: Glaucoma No date: Hyperlipidemia No date: Hypertension No date: Hypothyroid No date: Hypothyroidism No date: Incontinence No date: Intestinal malabsorption No date: Lymph edema No date: Morbid obesity ([facility]) No date: Obstructive sleep apnea No date: PMB (postmenopausal bleeding) No date: Polycystic ovarian syndrome No date: Psoriasis No date: SOB (shortness of breath) on exertion No date: Thyroglossal duct cyst No date: Type 2 diabetes mellitus without complication ([facility]) ([facility]) No date: Urinary tract infection No date: Uterine cancer ([facility]) ([facility]) 05/10/2017: Vitamin D deficiency 06/21/2018: Zinc deficiency Current Outpatient Medications on File Prior to Encounter: albuterol 108 (90 Base) MCG/ACT inhaler, Inhale 2 puffs every 6 hours as needed., Disp: , Rfl: atorvastatin (Lipitor) 40 MG tablet, Take by mouth daily., Disp: , Rfl: BD Insulin Syringe U/F 30G X 1/2 0.5 ML misc, 2 times daily with insulin, Disp: 200 each, Rfl: 3 brimonidine (Alphagan P) 0.1 % ophthalmic solution, 1 drop in the morning and 1 drop at noon and 1 drop in the evening., Disp: , Rfl: carvedilol (Coreg) 6.25 MG tablet, Take 12.5 mg by mouth in the morning and 12.5 mg in the evening., Disp: , Rfl: cholecalciferol (Vitamin D-3) 50 MCG (2000 UT) tablet, Take 2,000 Units by mouth in the morning., Disp: , Rfl: citalopram (CeleXA) 20 MG tablet, Take by mouth Every 24 hours., Disp: , Rfl: Continuous Blood Gluc Sensor (FreeStyle Satya 2 Sensor) misc, 1 Device every 14 (fourteen) days., Disp: 9 each, Rfl: 3 cyanocobalamin (Vitamin B-12) 1000 MCG tablet, Take 1,000 mcg by mouth 1 (one) time per week., Disp: , Rfl: EPINEPHRINE HCL, ANAPHYLAXIS, IM, Inject into the shoulder, thigh, or buttocks., Disp: , Rfl: fluconazole (Diflucan) 150 MG tablet, TAKE 1 TABLET BY MOUTH 1 TIME FOR 1 DAY, Disp: , Rfl: fluconazole (Diflucan) 200 MG tablet, Take 1 tablet by mouth daily. PRN yeast infections, Disp: , Rfl: FREESTYLE LITE test strip, USE DIRECTED FOUR TIMES DAILY, Disp: , Rfl: glucose 4 g chewable tablet, Chew 16 g if needed for low blood sugar., Disp: , Rfl: hydrocortisone (West-Dmitri) 0.2 % cream, Apply topically every 12 hours., Disp: , Rfl: insulin glargine (Lantus) 100 UNIT/ML pen, Inject 16 Units under the skin every morning., Disp: 3 mL, Rfl: 12 insulin lispro (HumaLOG) 100 UNIT/ML pen injection, Inject 16 Units under the skin daily with supper., Disp: 14.4 mL, Rfl: 3 insulin pen needle 32G x 4 mm misc, Use as instructed 2 times daily, Disp: 200 each, Rfl: 3 levothyroxine (Synthroid, Levoxyl) 175 MCG tablet, Take 1 tablet (175 mcg) by mouth every morning (before breakfast)., Disp: 90 tablet, Rfl: 3 mirabegron ER (Myrbetriq) 50 MG 24 hr tablet, Every 24 hours. PRN, Disp: , Rfl: multivitamin, Pediatric, (Flintstones Gummies) chewable tablet, Chew 2 tablets. With iron, Disp: , Rfl: olmesartan (BENIcar) 40 MG tablet, Take 1 tablet (40 mg) by mouth daily., Disp: 90 tablet, Rfl: 3 PROTEIN PO, Take by mouth., Disp: , Rfl: timolol (Timoptic) 0.5 % ophthalmic solution, 1 drop in the morning and 1 drop in the evening., Disp: , Rfl: triamcinolone (Kenalog) 0.1 % cream, Apply to affected area 1-2 times daily as needed. Avoid face and groin., Disp: 30 g, Rfl: 2 Current Facility-Administered Medications on File Prior to Encounter: triamcinolone (Kenalog) 0.1 % cream, , Topical, Once, Jerome Perdomo MD Allergies as of 06/20/2023 - Reviewed 06/20/2023 -- Bimatoprost -- Other -- noted 05/06/2018 -- Doxycycline -- Hives -- noted 05/24/2022 -- Erythromycin -- Hives -- noted 05/24/2022 -- Levaquin [levofloxacin] -- Hives -- noted 05/24/2022 -- Macrobid [nitrofurantoin] -- Hives -- noted 05/24/2022 -- Penicillins -- Hives -- noted 05/24/2022 -- Levofloxacin in d5w -- Swelling -- noted 03/01/2015 -- Macrolides and ketolides -- Hives -- noted 02/27/2004 -- Molds & smuts -- Itching -- noted 03/24/2015 -- Nitrofurantoin monohyd macro -- Itching -- noted 12/22/2014 -- Other -- Itching -- noted 02/11/2013 PHYSICAL EXAM: There were no vitals taken for this visit. Gen: A and O x 3, NAD, well nourished Eyes: Sclera non icterus, PERRL Head: Normocephalic, non-tender Neck: Supple, no adenopathy, thyroid non tender and no masses,no carotid bruits Lungs: CTA, symmetrical Chest: RRR, no murmurs Abd: Soft, NT, ND, no HSM, no hernias, no bruits Ext: No edema, no cyanosis Psych: reveals appropriate mood, memory and judgment, Neuro: Reveals no gross motor or sensory deficits, Msk: 5/5 strength all 4 extremities, no joint tenderness Vascular: Pulses Fem + Pop DP/PT Assessment: There were no vitals taken for this visit. Wound Reference Date is when first assessed. Measurements shown are from today's visit. Wound There were no vitals taken for this visit. Wound : see above IMPRESSION:Lymphedema (primary encounter diagnosis) Plan: Plan for wound - Treatment: see orders Discussed appropriate home care of this wound. Wound redressed. Patient instructions were given. Follow up: as per protocol documented in this encounter [facility] 06-20-2023 Hospital Discharge instructions Zayda Bradford RN - 06/20/2023 11:00 AM EST Nurse visit in [address] Perdomo in 4 weeks Triamcinolone to red areas on both legs Elevate legs to the level of the heart or above for 30 minutes daily and/or when sitting, a frequency of: as much as possible Unna Boot: Do not remove Unna Boot. Keep dry. If pain or swelling or discoloration of toes noted, elevate legs above level of heart for 1 hour. If no relief, call the center. If unable to reach center, remove boot and keep leg elevated until contact with center can be made. Multilayer Compression Therapy - 4 layers: Do not get legs with compression wrap wet. If wraps seem too tight, elevate legs above level of heart for one hour. If no relief, call the wound center. documented in this encounter [facility] 06-06-2023 History of Present illness Narrative Images from the original note were not included. [facility] Nurse Visit Note Dameon Potter AGE: 68 y.o. GENDER: female : 1955 EPISODE DATE: 06/06/23 Arrival Information: Patient Arrived: Walker Transfer Assistance: None Accompanied by: self Any changes in medical history since last visit: No Added or removed any Medications: No Any new allergies: No Any falls since last visit: No Any hospitalizations or surgeries since last visit: No Assessment: Vitals: 06/06/23 1608 BP: (!) 146/74 Pulse: 76 Resp: 18 Temp: 36.4 C (97.6 F) Wound/Incision 04/09/23 Lymphedema Knee Anterior;Left (Active) Wound Image 04/17/23 1149 Site Assessment Eschar 04/17/23 1149 Susan-Wound Assessment Dry;Intact 04/17/23 1149 Wound Length (cm) 6.5 cm 04/17/23 1149 Wound Width (cm) 12.5 cm 04/17/23 1149 Wound Surface Area (cm^2) 81.25 cm^2 04/17/23 1149 Wound Depth (cm) 0.1 cm 04/17/23 1149 Wound Volume (cm^3) 8.125 cm^3 04/17/23 1149 Wound Healing % 27 04/17/23 1149 Drainage Description Carrasco 04/17/23 1149 Odor None 04/17/23 1149 Drainage Amount Scant 04/17/23 1149 Treatments Cleansed;Moisturizing cream 04/17/23 1149 Primary Dressing Xeroform 04/11/23 1129 Secondary Dressing 4x4 gauze 04/11/23 1129 Secured with Kerlex;Silk tape 04/11/23 1129 Compression Multilayer compression wrap - 4 layers;Unna boot 04/09/23 1322 Topical Antibiotic ointment 04/11/23 1129 Dressing Status New dressing applied 04/25/23 1319 Treatment: Wound: No open wounds Patient was seen for a nurse visit to have Bilat unnaboots and profores changed. Dressing was removed. Legs were cleansed with soap and water, Moisteriser was applied to bilat. Legs, Unnaboots and profores. were applied per provider's orders. Discharge Information: Patient was discharged in stable condition. Ambulatory Status: Ambulatory Discharge Destination: home Transportation: Private Auto Accompanied by: patient Schedule Follow up Appointment: yes No orders of the defined types were placed in this encounter. documented in this encounter [facility] 05-23-2023 History of Present illness Narrative INITIAL VISIT - WOUND CARE Dameon Potter AGE: 68 y.o. GENDER: female : 1955 TODAY'S DATE: 05/23/2023 HISTORY OF PRESENT ILLNESS: Dameon Potter is a 68 y.o. female who presents today for lymphedema check. Well-controlled with wraps. Minimal dermatitis righ t lower calf, likely from chafing. Wound Location : left, right, and leg The patients pain is Problem list: Patient Active Problem List: Endometrial cancer (CMS/HCC) (HCC) Obesity with body mass index greater than 30 OAB (overactive bladder) Uncontrolled type 2 diabetes mellitus with hyperglycemia, with long-term current use of insulin (HCC) Deficiency of nutrient elements Zinc deficiency Lymphedema Hepatic steatosis Calculus of gallbladder with chronic cholecystitis without obstruction Vitamin D deficiency Intestinal malabsorption Morbid obesity (HCC) Hypothyroidism Essential hypertension, benign Mixed hyperlipidemia Fatigue Obstructive sleep apnea SOB (shortness of breath) on exertion Gastritis without bleeding PND (post-nasal drip) Gastroesophageal reflux disease without esophagitis Asthma without status asthmaticus Candidal vulvovaginitis Cardiomegaly Cortical cataract of both eyes Diabetic retinopathy associated with type 2 diabetes mellitus ([facility]) Diastolic dysfunction Dry eye syndrome of bilateral lacrimal glands Malignant neoplasm of uterus (HCC) Malnutrition of mild degree (Bianchi: 75% to less than 90% of standard weight) ([facility]) Moderate recurrent major depression ([facility]) Nuclear sclerotic cataract, bilateral Polycystic ovaries Posterior subcapsular age-related cataract of left eye Postmenopausal bleeding Primary open angle glaucoma of both eyes, mild stage Refractive error Chronic sinusitis Thyroglossal duct cyst Type 2 diabetes mellitus with hyperglycemia ([facility]) Corneal epithelial basement membrane dystrophy Uncontrolled type 2 diabetes mellitus Non-pressure chronic ulcer left lower leg, limited to breakdown skin ([facility]) Review of Systems: General: Fever: Negative Night Sweats: Negative Eye: Blurry Vision:Negative Double Vision: Negative Ent: Headaches: Negative Sore throat: Negative Ear pain or drainage: Negative Allergy/Immunology: Hives: Negative Hematology/Lymphatic: Bleeding Problems: Negative Blood Clots: Negative Swollen Lymph Nodes: Negative Lungs: Cough: Negative SOB: Negative Cardiovascular: Chest Pain: Negative Palpitations:Negative GI: Nausea/Vomiting: Negative Abdominal Pain: Negative Change in Bowels: Negative : Dysuria: Negative Increase Urinary Frequency/Urgency: Negative Neuro: Seizures: Negative Confusion: Negative PAST MEDICAL HISTORY: Review of patient's family history indicates: Problem: Stroke Relation: Father Name: Age of Onset: (Not Specified) Problem: Obesity Relation: Mother Name: dementia Age of Onset: (Not Specified) Problem: Diabetes Relation: Mother Name: dementia Age of Onset: (Not Specified) Problem: High Blood Pressure Relation: Mother Name: dementia Age of Onset: (Not Specified) Problem: Heart disease Relation: Mother Name: dementia Age of Onset: (Not Specified) Problem: Stroke Relation: Paternal Grandfather Name: Age of Onset: (Not Specified) Problem: High Blood Pressure Relation: Father Name: Age of Onset: (Not Specified) Problem: Diabetes Relation: Father Name: Age of Onset: (Not Specified) Problem: Diabetes Relation: Paternal Grandfather Name: Age of Onset: (Not Specified) Problem: Heart attack Relation: Paternal Grandmother Name: Age of Onset: (Not Specified) Problem: Colon cancer Relation: Neg Hx Name: Age of Onset: (Not Specified) Problem: High Blood Pressure Relation: Brother Name: Age of Onset: (Not Specified) Problem: Cancer Relation: Father Name: Age of Onset: (Not Specified) Comment: bladder Problem: Obesity Relation: Father Name: Age of Onset: (Not Specified) Social History Socioeconomic History Marital status: Single Spouse name: Not on file Number of children: Not on file Years of education: Not on file Highest education level: Not on file Occupational History Not on file Tobacco Use Smoking status: Never Smokeless tobacco: Never Substance and Sexual Activity Alcohol use: No Drug use: No Sexual activity: Not on file Other Topics Concerns: Not on file Social History Narrative Not on file Social Determinants of Health Financial Resource Strain: Not on file Food Insecurity: Not on file Transportation Needs: Not on file Physical Activity: Not on file Stress: Not on file Social Connections: Not on file Intimate Partner Violence: Not on file Housing Stability: Not on file Past Surgical History: No date: CATARACT EXTRACTION; Bilateral 01/29/2018: CHOLECYSTECTOMY Comment: w/ LRYGB and Umbilical Hernia repair - Tiffanygrafakis 09/03/2020: DILATION AND CURETTAGE OF UTERUS Comment: with hysteroscopy 01/29/2018: GASTRIC BYPASS Comment: LRYGB w/ Lap Aggie and Umbilical Hernia repairDeepali No date: GASTRIC BYPASS 09/30/2020: HYSTERECTOMY Comment: TLH/BSO; Dr. Cuauhtemoc Stubbs 1979': MOUTH SURGERY Comment: gum removal to expose wisdom teeth 2000: THYROGLOSSAL DUCT EXCISION Comment: [facility]- Dr. Vin Keating No date: THYROIDECTOMY 01/29/2018: UMBILICAL HERNIA REPAIR Comment: w/ LRYGB and Lap Aggie - Zografakis 03/20/2017: UPPER GASTROINTESTINAL ENDOSCOPY Comment: pre opDeepali 2012: WISDOM TOOTH EXTRACTION Comment: [facility] Past Medical History: No date: Anxiety No date: Asthma No date: Deficiency of nutrient elements No date: Depression No date: Dry eye No date: Fatigue No date: Gastritis No date: GERD (gastroesophageal reflux disease) No date: Glaucoma No date: Glaucoma No date: Hyperlipidemia No date: Hypertension No date: Hypothyroid No date: Hypothyroidism No date: Incontinence No date: Intestinal malabsorption No date: Lymph edema No date: Morbid obesity ([facility]) No date: Obstructive sleep apnea No date: PMB (postmenopausal bleeding) No date: Polycystic ovarian syndrome No date: Psoriasis No date: SOB (shortness of breath) on exertion No date: Thyroglossal duct cyst No date: Type 2 diabetes mellitus without complication ([facility]) ([facility]) No date: Urinary tract infection No date: Uterine cancer ([facility]) ([facility]) 05/10/2017: Vitamin D deficiency 06/21/2018: Zinc deficiency Current Outpatient Medications on File Prior to Encounter: albuterol 108 (90 Base) MCG/ACT inhaler, Inhale 2 puffs every 6 hours as needed., Disp: , Rfl: atorvastatin (Lipitor) 40 MG tablet, Take by mouth daily., Disp: , Rfl: BD Insulin Syringe U/F 30G X 1/2 0.5 ML misc, 2 times daily with insulin, Disp: 200 each, Rfl: 3 brimonidine (Alphagan P) 0.1 % ophthalmic solution, 1 drop in the morning and 1 drop at noon and 1 drop in the evening., Disp: , Rfl: carvedilol (Coreg) 6.25 MG tablet, Take 12.5 mg by mouth in the morning and 12.5 mg in the evening., Disp: , Rfl: cholecalciferol (Vitamin D-3) 50 MCG (2000 UT) tablet, Take 2,000 Units by mouth in the morning., Disp: , Rfl: citalopram (CeleXA) 20 MG tablet, Take by mouth Every 24 hours., Disp: , Rfl: Continuous Blood Gluc Sensor (FreeStyle Satya 2 Sensor) misc, 1 Device every 14 (fourteen) days., Disp: 9 each, Rfl: 3 cyanocobalamin (Vitamin B-12) 1000 MCG tablet, Take 1,000 mcg by mouth 1 (one) time per week., Disp: , Rfl: EPINEPHRINE HCL, ANAPHYLAXIS, IM, Inject into the shoulder, thigh, or buttocks., Disp: , Rfl: fluconazole (Diflucan) 150 MG tablet, TAKE 1 TABLET BY MOUTH 1 TIME FOR 1 DAY, Disp: , Rfl: fluconazole (Diflucan) 200 MG tablet, Take 1 tablet by mouth daily. PRN yeast infections, Disp: , Rfl: FREESTYLE LITE test strip, USE DIRECTED FOUR TIMES DAILY, Disp: , Rfl: glucose 4 g chewable tablet, Chew 16 g if needed for low blood sugar., Disp: , Rfl: hydrocortisone (West-Dmitri) 0.2 % cream, Apply topically every 12 hours., Disp: , Rfl: insulin glargine (Lantus) 100 UNIT/ML pen, Inject 16 Units under the skin every morning., Disp: 3 mL, Rfl: 12 insulin lispro (HumaLOG) 100 UNIT/ML pen injection, Inject 16 Units under the skin daily with supper., Disp: 14.4 mL, Rfl: 3 insulin pen needle 32G x 4 mm misc, Use as instructed 2 times daily, Disp: 200 each, Rfl: 3 levothyroxine (Synthroid, Levoxyl) 175 MCG tablet, Take 1 tablet (175 mcg) by mouth every morning (before breakfast)., Disp: 90 tablet, Rfl: 3 mirabegron ER (Myrbetriq) 50 MG 24 hr tablet, Every 24 hours. PRN, Disp: , Rfl: multivitamin, Pediatric, (Flintstones Gummies) chewable tablet, Chew 2 tablets. With iron, Disp: , Rfl: olmesartan (BENIcar) 40 MG tablet, Take 1 tablet (40 mg) by mouth daily., Disp: 90 tablet, Rfl: 3 PROTEIN PO, Take by mouth., Disp: , Rfl: timolol (Timoptic) 0.5 % ophthalmic solution, 1 drop in the morning and 1 drop in the evening., Disp: , Rfl: triamcinolone (Kenalog) 0.1 % cream, Apply to affected area 1-2 times daily as needed. Avoid face and groin., Disp: 30 g, Rfl: 2 Current Facility-Administered Medications on File Prior to Encounter: triamcinolone (Kenalog) 0.1 % cream, , Topical, Once, Jerome Perdomo MD Allergies as of 05/23/2023 - Reviewed 05/09/2023 -- Bimatoprost -- Other -- noted 05/06/2018 -- Doxycycline -- Hives -- noted 05/24/2022 -- Erythromycin -- Hives -- noted 05/24/2022 -- Levaquin [levofloxacin] -- Hives -- noted 05/24/2022 -- Macrobid [nitrofurantoin] -- Hives -- noted 05/24/2022 -- Penicillins -- Hives -- noted 05/24/2022 -- Levofloxacin in d5w -- Swelling -- noted 03/01/2015 -- Macrolides and ketolides -- Hives -- noted 02/27/2004 -- Molds & smuts -- Itching -- noted 03/24/2015 -- Nitrofurantoin monohyd macro -- Itching -- noted 12/22/2014 -- Other -- Itching -- noted 02/11/2013 PHYSICAL EXAM: Blood pressure (!) 160/82, pulse 69, temperature 37.2 C (98.9 F), resp. rate 18. Gen: A and O x 3, NAD, well nourished Eyes: Sclera non icterus, PERRL Head: Normocephalic, non-tender Neck: Supple, no adenopathy, thyroid non tender and no masses,no carotid bruits Lungs: CTA, symmetrical Chest: RRR, no murmurs Abd: Soft, NT, ND, no HSM, no hernias, no bruits Ext: No edema, no cyanosis Psych: reveals appropriate mood, memory and judgment, Neuro: Reveals no gross motor or sensory deficits, Msk: 5/5 strength all 4 extremities, no joint tenderness; chronic arthritic changes Vascular: Pulses Fem + Pop DP/PT + Assessment: BP (!) 160/82 Pulse 69 Temp 37.2 C (98.9 F) Resp 18 Wound Reference Date is when first assessed. Measurements shown are from today's visit. Wound BP (!) 160/82 Pulse 69 Temp 37.2 C (98.9 F) Resp 18 Wound : see CAHUILLA IMPRESSION:Lymphedema (primary encounter diagnosis) Plan: Plan for wound - Treatment: see orders Discussed appropriate home care of this wound. Wound redressed. Patient instructions were given. Follow up: as per protocol documented in this encounter [facility] 05-23-2023 Hospital Discharge instructions Zayda Bradford RN - 05/23/2023 11:00 AM EDT Nurse visit in [address] Perdomo in 4 weeks Triamcinolone and Xeroform to red areas on both legs Elevate legs to the level of the heart or above for 30 minutes daily and/or when sitting, a frequency of: as much as possible Unna Boot: Do not remove Unna Boot. Keep dry. If pain or swelling or discoloration of toes noted, elevate legs above level of heart for 1 hour. If no relief, call the center. If unable to reach center, remove boot and keep leg elevated until contact with center can be made. Multilayer Compression Therapy - 4 layers: Do not get legs with compression wrap wet. If wraps seem too tight, elevate legs above level of heart for one hour. If no relief, call the wound center. documented in this encounter [facility] 05-11-2023 Telephone encounter Note I'll forward to gordon from [employer] to see if we can get an order placed for satya 2 reader/sensors. Thank you! Once she receives these items, we can assist with getting her scheduled for a nurse visit. [facility] 05-11-2023 Miscellaneous Notes I'll forward to gordon from [employer] to see if we can get an order placed for satya 2 reader/sensors. Thank you! Once she receives these items, we can assist with getting her scheduled for a nurse visit. Had cgm prescribed before but did not learn to use and then was told from [facility] that it may be defective -please see if can get it re-prescribed, covered and taught documented in this encounter [facility] 05-09-2023 Telephone encounter Note Had cgm prescribed before but did not learn to use and then was told from sg that it may be defective -please see if can get it re-prescribed, covered and taught [facility] 05-09-2023 Miscellaneous Notes Had cgm prescribed before but did not learn to use and then was told from sg that it may be defective -please see if can get it re-prescribed, covered and taught documented in this encounter [facility] 05-09-2023 History of Present illness Narrative . ENDOCRINOLOGY [address] [place] [id number] Dept: [phone] Dept Visit type: Established patient Reason for Visit: Follow-up (DM2) Assessment and Plan 1. 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 Type 2 diabetes mellitus with hyperglycemia, with long-term current use of insulin (HCC) - AMB POC HEMOGLOBIN A1C - Comprehensive metabolic panel - Hemoglobin A1c 3. Mixed hyperlipidemia - Lipid panel 4. Primary hypertension - olmesartan (BENIcar) 40 MG tablet; Take 1 tablet (40 mg) by mouth daily., Starting 05/09/2023, Normal No follow-ups on file. Discussed with patient Diabetes is unstable Regimen is not physiologic- would stop u500 insulin and add lantus insulin Had cgm prescribed before but did not learn to use and then was told from rai that it may be defective -will see if can get re-prescribed, covered and taught Start lantus 16 units once daily, and hlog 16 units dinner With severe gi issues would hold ozempic at this point Discussed with patient detection, monitoring, management, and prevention of hypoglycemia Discussed with patient diabetes foot care Subjective HPI Follow-up appointment for dm/thyroid Diet usually 1 meal daily, has to limit intake to avoid severe diarrhea post radiation for endometrial cancer, s/p gastric bypass surgery Exercise adls Hgm checks after meal 15 minutes in 100 range, uses to try to help with diet and dosinglin Hypoglycemia rare Meds for dm u500 from vial takes 7 with meal, was prescribed ozempic but not taking it, states could not get it Eye care caught up in the last 12 mos A1c goal 7 Onset dm 2000 Hlp taking lipitor 40 daily stable tolerates well Htn takes carvediol and benicar tolerates well stable Hypothyroidism Lt4 taking 175 mcg daily Hx thyroglossal duct cyst but hypothyroidism cw hashimotos Am fasting no calcium, iron or soy or biotin Review of Systems Constitutional: Negative for activity change and fatigue. HENT: Negative for hearing loss, trouble swallowing and voice change. Respiratory: Negative for cough, shortness of breath and wheezing. Cardiovascular: Negative for palpitations. Gastrointestinal: Negative for nausea and vomiting. Endocrine: Negative for cold intolerance and heat intolerance. Genitourinary: Negative for dysuria and hematuria. Skin: Negative for rash. Neurological: Negative for tremors and headaches. Psychiatric/Behavioral: Negative for sleep disturbance. Allergies Allergen Reactions Bimatoprost Other Blurred vision Doxycycline Hives Erythromycin Hives Levaquin [Levofloxacin] Hives Macrobid [Nitrofurantoin] Hives Penicillins Hives Levofloxacin In D5w Swelling oral Macrolides And Ketolides Hives 1980 Molds & Smuts Itching Mold allergy Nitrofurantoin Monohyd Macro Itching Other Itching Outpatient Medications Prior to Visit Medication Sig Dispense Refill albuterol 108 (90 Base) MCG/ACT inhaler Inhale 2 puffs every 6 hours as needed. atorvastatin (Lipitor) 40 MG tablet Take by mouth daily. BD Insulin Syringe U/F 30G X 1/2 0.5 ML misc 2 times daily with insulin 200 each 3 brimonidine (Alphagan P) 0.1 % ophthalmic solution 1 drop in the morning and 1 drop at noon and 1 drop in the evening. carvedilol (Coreg) 6.25 MG tablet Take 12.5 mg by mouth in the morning and 12.5 mg in the evening. cholecalciferol (Vitamin D-3) 50 MCG (2000 UT) tablet Take 2,000 Units by mouth in the morning. citalopram (CeleXA) 20 MG tablet Take by mouth Every 24 hours. Continuous Blood Gluc Sensor (FreeStyle Satya 2 Sensor) misc 1 Device every 14 (fourteen) days. 9 each 3 cyanocobalamin (Vitamin B-12) 1000 MCG tablet Take 1,000 mcg by mouth 1 (one) time per week. EPINEPHRINE HCL, ANAPHYLAXIS, IM Inject into the shoulder, thigh, or buttocks. fluconazole (Diflucan) 150 MG tablet TAKE 1 TABLET BY MOUTH 1 TIME FOR 1 DAY fluconazole (Diflucan) 200 MG tablet Take 1 tablet by mouth daily. PRN yeast infections FREESTYLE LITE test strip USE DIRECTED FOUR TIMES DAILY glucose 4 g chewable tablet Chew 16 g if needed for low blood sugar. hydrocortisone (West-Dmitri) 0.2 % cream Apply topically every 12 hours. levothyroxine (Synthroid, Levoxyl) 175 MCG tablet Take 1 tablet (175 mcg) by mouth every morning (before breakfast). 90 tablet 3 mirabegron ER (Myrbetriq) 50 MG 24 hr tablet Every 24 hours. PRN multivitamin, Pediatric, (Flintstones Gummies) chewable tablet Chew 2 tablets. With iron PROTEIN PO Take by mouth. timolol (Timoptic) 0.5 % ophthalmic solution 1 drop in the morning and 1 drop in the evening. triamcinolone (Kenalog) 0.1 % cream Apply to affected area 1-2 times daily as needed. Avoid face and groin. 30 g 2 HumuLIN R 500 UNIT/ML CONCENTRATED injection 8 units with breakfast 5 units with dinner per orange tip insulin syringe 60 mL 3 olmesartan (BENIcar) 40 MG tablet Take 40 mg by mouth. Facility-Administered Medications Prior to Visit Medication Dose Route Frequency Provider Last Rate Last Admin triamcinolone (Kenalog) 0.1 % cream Topical Once Jerome Perdomo MD Past Medical History: Diagnosis Date Anxiety Asthma Deficiency of nutrient elements Depression Dry eye Fatigue Gastritis GERD (gastroesophageal reflux disease) Glaucoma Glaucoma Hyperlipidemia Hypertension Hypothyroid Hypothyroidism Incontinence Intestinal malabsorption Lymph edema Morbid obesity (HCC) Obstructive sleep apnea PMB (postmenopausal bleeding) Polycystic ovarian syndrome Psoriasis SOB (shortness of breath) on exertion Thyroglossal duct cyst Type 2 diabetes mellitus without complication (CMS/HCC) (HCC) Urinary tract infection Uterine cancer (CMS/HCC) (HCC) Vitamin D deficiency 05/10/2017 Zinc deficiency 06/21/2018 Social History Tobacco Use Smoking status: Never Smokeless tobacco: Never Substance Use Topics Alcohol use: No Past Surgical History: Procedure Laterality Date CATARACT EXTRACTION Bilateral CHOLECYSTECTOMY 01/29/2018 w/ LRYGB and Umbilical Hernia repair - Zografakis DILATION AND CURETTAGE OF UTERUS 09/03/2020 with hysteroscopy GASTRIC BYPASS 01/29/2018 LRYGB w/ Lap Aggie and Umbilical Hernia repair, Zografakis GASTRIC BYPASS HYSTERECTOMY 09/30/2020 TLH/BSO; Dr. Cuauhtemoc Stubbs MOUTH SURGERY gum removal to expose wisdom teeth [facility] Vin Ke[facility] THYROIDECTOMY UMBILICAL HERNIA REPAIR 01/29/2018 w/ LRYGB and Lap Aggie - Zografakis UPPER GASTROINTESTINAL ENDOSCOPY 03/20/2017 pre op, Zografakis WISDOM TOOTH EXTRACTION 2013 [facility] Family History Problem Relation Name Age of Onset Stroke Father Obesity Mother dementia Diabetes Mother dementia High Blood Pressure Mother dementia Heart disease Mother dementia Stroke Paternal Grandfather High Blood Pressure Father Diabetes Father Diabetes Paternal Grandfather Heart attack Paternal Grandmother Colon cancer Neg Hx High Blood Pressure Brother Cancer Father bladder Obesity Father Objective BP (!) 158/80 (BP Location: Right arm, Patient Position: Sitting, BP Cuff Size: Large adult) Ht 5' 6 (1.676 m) Wt 274 lb (124 kg) BMI 44.22 kg/m Physical Exam Vitals reviewed. Constitutional: General: She is not in acute distress. Appearance: Normal appearance. She is not ill-appearing. Eyes: General: No scleral icterus. Right eye: No discharge. Left eye: No discharge. Cardiovascular: Rate and Rhythm: Normal rate and regular rhythm. Pulses: Normal pulses. Heart sounds: Normal heart sounds. No murmur heard. No friction rub. Pulmonary: Effort: Pulmonary effort is normal. No respiratory distress. Breath sounds: Normal breath sounds. No stridor. No wheezing or rhonchi. Musculoskeletal: Cervical back: Normal range of motion and neck supple. No rigidity or tenderness. Skin: General: Skin is warm and dry. Coloration: Skin is not jaundiced or pale. Comments: Feet 4/4 no lesions Neurological: General: No focal deficit present. Mental Status: She is alert and oriented to person, place, and time. Cranial Nerves: No cranial nerve deficit. Sensory: No sensory deficit. Psychiatric: Mood and Affect: Mood normal. Behavior: Behavior normal. Data Reviewed and Summarized Labs: THYROID STIMULATING HORMONE Date Value Ref Range Status 10/06/2022 2.14 0.40 - 4.50 mIU/L Final Auto WBC Date Value Ref Range Status 12/27/2020 5.6 3.6 - 10.7 10*3/uL Final Hemoglobin Date Value Ref Range Status 12/27/2020 12.7 11.7 - 16.0 g/dL Final 12/13/2020 12.6 11.7 - 16.0 g/dL Final 09/23/2020 12.7 11.7 - 16.0 g/dL Final 03/04/2020 13.2 11.7 - 16.0 g/dL Final 07/31/2019 13.9 11.7 - 16.0 g/dL Final [facility] CORPUSCULAR VOLUME Date Value Ref Range Status 12/27/2020 89.1 79.0 - 98.0 fL Final SODIUM Date Value Ref Range Status 04/06/2021 135 135 - 145 mmol/L Final POTASSIUM Date Value Ref Range Status 04/06/2021 4.5 3.5 - 5.1 mmol/L Final CHLORIDE Date Value Ref Range Status 04/06/2021 103 98 - 107 mmol/L Final Carbon Dioxide (CO2) Date Value Ref Range Status 10/06/2022 23 20 - 32 mmol/L Final Urea Nitrogen (BUN) Date Value Ref Range Status 10/06/2022 17 7 - 25 mg/dL Final Creatinine Date Value Ref Range Status 10/06/2022 0.78 0.50 - 1.05 mg/dL Final CREATININE Date Value Ref Range Status 04/06/2021 0.63 0.52 - 1.25 mg/dL Final 09/23/2020 0.56 0.52 - 1.25 mg/dL Final 03/04/2020 0.48 (L) 0.52 - 1.25 mg/dL Final 07/31/2019 0.60 0.52 - 1.25 mg/dL Final GLUCOSE Date Value Ref Range Status 10/06/2022 306 (H) 65 - 99 mg/dL Final Comment: Fasting reference interval For someone without known diabetes, a glucose value >125 mg/dL indicates that they may have diabetes and this should be confirmed with a follow-up test. CALCIUM Date Value Ref Range Status 10/06/2022 8.9 8.6 - 10.4 mg/dL Final MAGNESIUM Date Value Ref Range Status 03/04/2020 1.7 1.6 - 2.3 mg/dL Final AST - [facility] Date Value Ref Range Status 10/06/2022 24 10 - 35 U/L Final ALT - [facility] Date Value Ref Range Status 10/06/2022 23 6 - 29 U/L Final PROTEIN, TOTAL - [facility] Date Value Ref Range Status 10/06/2022 6.8 6.1 - 8.1 g/dL Final BILIRUBIN, TOTAL - [facility] Date Value Ref Range Status 10/06/2022 1.1 0.2 - 1.2 mg/dL Final ALKALINE PHOSPHATASE Date Value Ref Range Status 10/06/2022 93 37 - 153 U/L Final CHOLESTEROL Date Value Ref Range Status 04/06/2021 149 <200 mg/dL Final TRIGLYCERIDE Date Value Ref Range Status 06/22/2021 414 mg/dL Final HDL CHOLESTEROL Date Value Ref Range Status 06/22/2021 50 35 - 70 mg/dL Final 06/22/2021 50 35 - 70 mg/dL Final [facility] VITAMIN D 25-HYDROXY Date Value Ref Range Status 04/06/2021 22 (L) 30 - 100 ng/mL Final Comment: Therapy is based on measurement of Total 25-OHD with the following classification levels: Less than 20 ng/mL: Indicative of Vit D deficiency 20-30 ng/mL: Suggests Vit D insufficiency Optimal: Greater than or equal to 30 ng/mL Test performed by [employer] Competitive Immunoassay, measuring Total Vitamin D, not individual fractions. HEMOGLOBIN A1C Date Value Ref Range Status 03/03/2022 11.2 % Final Hemoglobin A1C Date Value Ref Range Status 05/09/2023 10.2 (A) 5.7 % Final Imaging/Testing: Bridget Alcantara MD documented in this encounter [facility] 05-08-2023 History of Present illness Narrative Images from the original note were not included. [facility] Nurse Visit Note Dameon Potter AGE: 68 y.o. GENDER: female : 1955 EPISODE DATE: 05/08/23 Arrival Information: Patient Arrived: Walker Transfer Assistance: None Accompanied by: Self Any changes in medical history since last visit: No Added or removed any Medications: No Any new allergies: No Any falls since last visit: No Any hospitalizations or surgeries since last visit: No Assessment: Vitals: 05/08/23 1152 BP: (!) 181/77 Pulse: 93 Resp: 18 Temp: 36.6 C (97.8 F) Wound/Incision 04/09/23 Lymphedema Knee Anterior;Left (Active) Wound Image 04/17/23 1149 Site Assessment Eschar 04/17/23 1149 Susan-Wound Assessment Dry;Intact 04/17/23 1149 Wound Length (cm) 6.5 cm 04/17/23 1149 Wound Width (cm) 12.5 cm 04/17/23 1149 Wound Surface Area (cm^2) 81.25 cm^2 04/17/23 1149 Wound Depth (cm) 0.1 cm 04/17/23 1149 Wound Volume (cm^3) 8.125 cm^3 04/17/23 1149 Wound Healing % 27 04/17/23 1149 Drainage Description Carrasco 04/17/23 1149 Odor None 04/17/23 1149 Drainage Amount Scant 04/17/23 1149 Treatments Cleansed;Moisturizing cream 04/17/23 1149 Primary Dressing Xeroform 04/11/23 1129 Secondary Dressing 4x4 gauze 04/11/23 1129 Secured with Kerlex;Silk tape 04/11/23 1129 Compression Multilayer compression wrap - 4 layers;Unna boot 04/09/23 1322 Topical Antibiotic ointment 04/11/23 1129 Dressing Status New dressing applied 04/25/23 1319 Treatment: Wound: Bilateral Lower Leg Unna Boot with Profore Patient was seen for a nurse visit to have bilateral lower leg wraps changed. Dressing was removed. Legs were cleansed with warm water and soap. Unna boots with Profore compression wrap applied bilaterally per provider's orders. Discharge Information: Patient was discharged in stable condition. Ambulatory Status: Walker Discharge Destination: home Transportation: Private Auto Accompanied by: patient Schedule Follow up Appointment: yes No orders of the defined types were placed in this encounter. documented in this encounter [facility] 04-25-2023 History of Present illness Narrative INITIAL VISIT - WOUND CARE Dameon Potter AGE: 68 y.o. GENDER: female : 1955 TODAY'S DATE: 04/25/2023 HISTORY OF PRESENT ILLNESS: Dameon Potter is a 68 y.o. female who presents today in F/U. Area od ulceration has healed. Lymphedema controlled with wraps. Wound Location : left, right, and leg The patients pain is Problem list: Patient Active Problem List: Endometrial cancer (CMS/HCC) (HCC) Obesity with body mass index greater than 30 OAB (overactive bladder) Uncontrolled type 2 diabetes mellitus with hyperglycemia, with long-term current use of insulin (HCC) Deficiency of nutrient elements Zinc deficiency Lymphedema Hepatic steatosis Calculus of gallbladder with chronic cholecystitis without obstruction Vitamin D deficiency Intestinal malabsorption Morbid obesity (HCC) Hypothyroidism Essential hypertension, benign Mixed hyperlipidemia Fatigue Obstructive sleep apnea SOB (shortness of breath) on exertion Gastritis without bleeding PND (post-nasal drip) Gastroesophageal reflux disease without esophagitis Asthma without status asthmaticus Candidal vulvovaginitis Cardiomegaly Cortical cataract of both eyes Diabetic retinopathy associated with type 2 diabetes mellitus (HCC) Diastolic dysfunction Dry eye syndrome of bilateral lacrimal glands Malignant neoplasm of uterus (HCC) Malnutrition of mild degree (Bianchi: 75% to less than 90% of standard weight) (HCC) Moderate recurrent major depression (HCC) Nuclear sclerotic cataract, bilateral Polycystic ovaries Posterior subcapsular age-related cataract of left eye Postmenopausal bleeding Primary open angle glaucoma of both eyes, mild stage Refractive error Chronic sinusitis Thyroglossal duct cyst Type 2 diabetes mellitus with hyperglycemia (HCC) Corneal epithelial basement membrane dystrophy Uncontrolled type 2 diabetes mellitus Non-pressure chronic ulcer left lower leg, 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) Review of Systems: General: Fever: Negative Night Sweats: Negative Eye: Blurry Vision:Negative Double Vision: Negative Ent: Headaches: Negative Sore throat: Negative Ear pain or drainage: Negative Allergy/Immunology: Hives: Negative Hematology/Lymphatic: Bleeding Problems: Negative Blood Clots: Negative Swollen Lymph Nodes: Negative Lungs: Cough: Negative SOB: Negative Cardiovascular: Chest Pain: Negative Palpitations:Negative GI: Nausea/Vomiting: Negative Abdominal Pain: Negative Change in Bowels: Negative : Dysuria: Negative Increase Urinary Frequency/Urgency: Negative Neuro: Seizures: Negative Confusion: Negative PAST MEDICAL HISTORY: Review of patient's family history indicates: Problem: Stroke Relation: Father Name: Age of Onset: (Not Specified) Problem: Obesity Relation: Mother Name: dementia Age of Onset: (Not Specified) Problem: Diabetes Relation: Mother Name: dementia Age of Onset: (Not Specified) Problem: High Blood Pressure Relation: Mother Name: dementia Age of Onset: (Not Specified) Problem: Heart disease Relation: Mother Name: dementia Age of Onset: (Not Specified) Problem: Stroke Relation: Paternal Grandfather Name: Age of Onset: (Not Specified) Problem: High Blood Pressure Relation: Father Name: Age of Onset: (Not Specified) Problem: Diabetes Relation: Father Name: Age of Onset: (Not Specified) Problem: Diabetes Relation: Paternal Grandfather Name: Age of Onset: (Not Specified) Problem: Heart attack Relation: Paternal Grandmother Name: Age of Onset: (Not Specified) Problem: Colon cancer Relation: Neg Hx Name: Age of Onset: (Not Specified) Problem: High Blood Pressure Relation: Brother Name: Age of Onset: (Not Specified) Problem: Cancer Relation: Father Name: Age of Onset: (Not Specified) Comment: bladder Problem: Obesity Relation: Father Name: Age of Onset: (Not Specified) Social History Socioeconomic History Marital status: Single Spouse name: Not on file Number of children: Not on file Years of education: Not on file Highest education level: Not on file Occupational History Not on file Tobacco Use Smoking status: Never Smokeless tobacco: Never Substance and Sexual Activity Alcohol use: No Drug use: No Sexual activity: Not on file Other Topics Concerns: Not on file Social History Narrative Not on file Social Determinants of Health Financial Resource Strain: Not on file Food Insecurity: Not on file Transportation Needs: Not on file Physical Activity: Not on file Stress: Not on file Social Connections: Not on file Intimate Partner Violence: Not on file Housing Stability: Not on file Past Surgical History: No date: CATARACT EXTRACTION; Bilateral 01/29/2018: CHOLECYSTECTOMY Comment: w/ LRYGB and Umbilical Hernia repair - Deepali 09/03/2020: DILATION AND CURETTAGE OF UTERUS Comment: with hysteroscopy 01/29/2018: GASTRIC BYPASS Comment: LRYGB w/ Lap Aggie and Umbilical Hernia repair, Deepali No date: GASTRIC BYPASS 09/30/2020: HYSTERECTOMY Comment: TLH/BSO; Dr. Cuauhtemoc Stubbs : MOUTH SURGERY Comment: gum removal to expose wisdom teeth 2000: THYROGLOSSAL DUCT EXCISION Comment: Nikole- Dr. Vin Keating No date: THYROIDECTOMY 01/29/2018: UMBILICAL HERNIA REPAIR Comment: w/ LRYGB and Lap Aggie - Zografakis 03/20/2017: UPPER GASTROINTESTINAL ENDOSCOPY Comment: pre op, Deepali 2012: WISDOM TOOTH EXTRACTION Comment: [facility] Past Medical History: No date: Anxiety No date: Asthma No date: Deficiency of nutrient elements No date: Depression No date: Dry eye No date: Fatigue No date: Gastritis No date: GERD (gastroesophageal reflux disease) No date: Glaucoma No date: Glaucoma No date: Hyperlipidemia No date: Hypertension No date: Hypothyroid No date: Hypothyroidism No date: Incontinence No date: Intestinal malabsorption No date: Lymph edema No date: Morbid obesity ([facility]) No date: Obstructive sleep apnea No date: PMB (postmenopausal bleeding) No date: Polycystic ovarian syndrome No date: Psoriasis No date: SOB (shortness of breath) on exertion No date: Thyroglossal duct cyst No date: Type 2 diabetes mellitus without complication ([facility]) ([facility]) No date: Urinary tract infection No date: Uterine cancer ([facility]) ([facility]) 05/10/2017: Vitamin D deficiency 06/21/2018: Zinc deficiency Current Outpatient Medications on File Prior to Encounter: albuterol 108 (90 Base) MCG/ACT inhaler, Inhale 2 puffs every 6 hours as needed., Disp: , Rfl: atorvastatin (Lipitor) 40 MG tablet, Take by mouth daily., Disp: , Rfl: BD Insulin Syringe U/F 30G X 1/2 0.5 ML misc, 2 times daily with insulin, Disp: 200 each, Rfl: 3 brimonidine (Alphagan P) 0.1 % ophthalmic solution, 1 drop in the morning and 1 drop at noon and 1 drop in the evening., Disp: , Rfl: carvedilol (Coreg) 6.25 MG tablet, Take 12.5 mg by mouth in the morning and 12.5 mg in the evening., Disp: , Rfl: cholecalciferol (Vitamin D-3) 50 MCG (2000 UT) tablet, Take 2,000 Units by mouth in the morning., Disp: , Rfl: citalopram (CeleXA) 20 MG tablet, Take by mouth Every 24 hours., Disp: , Rfl: Continuous Blood Gluc Sensor (FreeStyle Satya 2 Sensor) [facility], 1 Device every 14 (fourteen) days., Disp: 9 each, Rfl: 3 EPINEPHRINE HCL, ANAPHYLAXIS, IM, Inject into the shoulder, thigh, or buttocks., Disp: , Rfl: fluconazole (Diflucan) 150 MG tablet, TAKE 1 TABLET BY MOUTH 1 TIME FOR 1 DAY, Disp: , Rfl: fluconazole (Diflucan) 200 MG tablet, Take 1 tablet by mouth daily. PRN yeast infections, Disp: , Rfl: FREESTYLE LITE test strip, USE DIRECTED FOUR TIMES DAILY, Disp: , Rfl: glucose 4 g chewable tablet, Chew 16 g if needed for low blood sugar., Disp: , Rfl: HumuLIN R 500 UNIT/ML CONCENTRATED injection, 8 units with breakfast 5 units with dinner per orange tip insulin syringe, Disp: 60 mL, Rfl: 3 hydrocortisone (West-Dmitri) 0.2 % cream, Apply topically every 12 hours., Disp: , Rfl: levothyroxine (Synthroid, Levoxyl) 175 MCG tablet, Take 1 tablet (175 mcg) by mouth every morning (before breakfast)., Disp: 90 tablet, Rfl: 3 mirabegron ER (Myrbetriq) 50 MG 24 hr tablet, Every 24 hours. PRN, Disp: , Rfl: multivitamin, Pediatric, (Flintstones Gummies) chewable tablet, Chew 1 tablet., Disp: , Rfl: [] mupirocin (Bactroban) 2 % ointment, Apply topically 3 times daily for 10 days., Disp: 22 g, Rfl: 0 olmesartan (BENIcar) 40 MG tablet, Take 40 mg by mouth., Disp: , Rfl: PROTEIN PO, Take by mouth., Disp: , Rfl: timolol (Timoptic) 0.5 % ophthalmic solution, 1 drop in the morning and 1 drop in the evening., Disp: , Rfl: triamcinolone (Kenalog) 0.1 % cream, Apply to affected area 1-2 times daily as needed. Avoid face and groin., Disp: 30 g, Rfl: 2 Current Facility-Administered Medications on File Prior to Encounter: triamcinolone (Kenalog) 0.1 % cream, , Topical, Once, Jeromeniurka Perdomo MD Allergies as of 04/25/2023 - Reviewed 04/25/2023 -- Bimatoprost -- Other -- noted 05/06/2018 -- Doxycycline -- Hives -- noted 05/24/2022 -- Erythromycin -- Hives -- noted 05/24/2022 -- Levaquin [levofloxacin] -- Hives -- noted 05/24/2022 -- Macrobid [nitrofurantoin] -- Hives -- noted 05/24/2022 -- Penicillins -- Hives -- noted 05/24/2022 -- Levofloxacin in d5w -- Swelling -- noted 03/01/2015 -- Macrolides and ketolides -- Hives -- noted 02/27/2004 -- Molds & smuts -- Itching -- noted 03/24/2015 -- Nitrofurantoin monohyd macro -- Itching -- noted 12/22/2014 -- Other -- Itching -- noted 02/11/2013 PHYSICAL EXAM: Blood pressure (!) 144/81, pulse 64, temperature 36 C (96.8 F), resp. rate 20. Gen: A and O x 3, NAD, well nourished Eyes: Sclera non icterus, PERRL Head: Normocephalic, non-tender Neck: Supple, no adenopathy, thyroid non tender and no masses,no carotid bruits Lungs: CTA, symmetrical Chest: RRR, no murmurs Abd: Soft, NT, ND, no HSM, no hernias, no bruits Ext: No edema, no cyanosis Psych: reveals appropriate mood, memory and judgment, Neuro: Reveals no gross motor or sensory deficits, Msk: 5/5 strength all 4 extremities, no joint tenderness Vascular: Pulses Fem + Pop DP/PT + Assessment: BP (!) 144/81 (BP Location: Left arm) Pulse 64 Temp 36 C (96.8 F) Resp 20 Wound Reference Date is when first assessed. Measurements shown are from today's visit. Wound BP (!) 144/81 (BP Location: Left arm) Pulse 64 Temp 36 C (96.8 F) Resp 20 Wound : see CAHUILLA IMPRESSION:Lymphedema (primary encounter diagnosis) Plan: Plan for wound - Treatment: see orders Discussed appropriate home care of this wound. Wound redressed. Patient instructions were given. Follow up: as per protocol documented in this encounter [facility] 04-25-2023 Hospital Discharge instructions Zayda Bradford RN - 04/25/2023 11:00 AM EDT Nurse visit in [address] Perdomo in 4 weeks Elevate legs to the level of the heart or above for 30 minutes daily and/or when sitting, a frequency of: as much as possible Unna Boot: Do not remove Unna Boot. Keep dry. If pain or swelling or discoloration of toes noted, elevate legs above level of heart for 1 hour. If no relief, call the center. If unable to reach center, remove boot and keep leg elevated until contact with center can be made. Multilayer Compression Therapy - 4 layers: Do not get legs with compression wrap wet. If wraps seem too tight, elevate legs above level of heart for one hour. If no relief, call the wound center. documented in this encounter [facility] 04-17-2023 History of Present illness Narrative Images from the original note were not included. [facility] Nurse Visit Note Dameon Potter AGE: 68 y.o. GENDER: female : 1955 EPISODE DATE: 04/17/23 Arrival Information: Patient Arrived: Walker Transfer Assistance: None Accompanied by: self Any changes in medical history since last visit: No Added or removed any Medications: No Any new allergies: No Any falls since last visit: No Any hospitalizations or surgeries since last visit: No Assessment: Vitals: 04/17/23 1137 BP: (!) 194/84 Pulse: 58 Resp: 20 Temp: 36.9 C (98.4 F) Wound/Incision 04/09/23 Lymphedema Knee Anterior;Left (Active) Wound Image 04/17/23 1149 Site Assessment Eschar 04/17/23 1149 Susan-Wound Assessment Dry;Intact 04/17/23 1149 Wound Length (cm) 6.5 cm 04/17/23 1149 Wound Width (cm) 12.5 cm 04/17/23 1149 Wound Surface Area (cm^2) 81.25 cm^2 04/17/23 1149 Wound Depth (cm) 0.1 cm 04/17/23 1149 Wound Volume (cm^3) 8.125 cm^3 04/17/23 1149 Wound Healing % 27 04/17/23 1149 Drainage Description Carrasco 04/17/23 1149 Odor None 04/17/23 1149 Drainage Amount Scant 04/17/23 1149 Treatments Cleansed;Moisturizing cream 04/17/23 1149 Primary Dressing Xeroform 04/11/23 1129 Secondary Dressing 4x4 gauze 04/11/23 1129 Secured with Kerlex;Silk tape 04/11/23 1129 Compression Multilayer compression wrap - 4 layers;Unna boot 04/09/23 1322 Topical Antibiotic ointment 04/11/23 1129 Treatment: Wound: Left knee area Patient was seen for a nurse visit to have profore changed. Dressing was removed. Wound was cleansed with soap and water, lotion was applied to periwound, xerform and bactroban dressing was applied to wound, unna boot and 4 layer compression wrap was applied per provider's orders with SLTG over the top Discharge Information: Patient was discharged in stable condition. Ambulatory Status: Walker Discharge Destination: home Transportation: Private Auto Accompanied by: patient Schedule Follow up Appointment: no No orders of the defined types were placed in this encounter. documented in this encounter [facility] 04-11-2023 History of Present illness Narrative INITIAL VISIT - WOUND CARE Dameon Potter AGE: 68 y.o. GENDER: female : 1955 TODAY'S DATE: 04/11/2023 HISTORY OF PRESENT ILLNESS: Dameon Potter is a 68 y.o. female who presents today in F/U. Area is better with less erythema and edema. New scarring from healing ulcers. Continuing present Rx. Wound Location : left and leg The patients pain is Problem list: Patient Active Problem List: Endometrial cancer (CMS/HCC) (HCC) Obesity with body mass index greater than 30 OAB (overactive bladder) Uncontrolled type 2 diabetes mellitus with hyperglycemia, with long-term current use of insulin (HCC) Deficiency of nutrient elements Zinc deficiency Lymphedema Hepatic steatosis Calculus of gallbladder with chronic cholecystitis without obstruction Vitamin D deficiency Intestinal malabsorption Morbid obesity (HCC) Hypothyroidism Essential hypertension, benign Mixed hyperlipidemia Fatigue Obstructive sleep apnea SOB (shortness of breath) on exertion Gastritis without bleeding PND (post-nasal drip) Gastroesophageal reflux disease without esophagitis Asthma without status asthmaticus Candidal vulvovaginitis Cardiomegaly Cortical cataract of both eyes Diabetic retinopathy associated with type 2 diabetes mellitus ([facility]) Diastolic dysfunction Dry eye syndrome of bilateral lacrimal glands Malignant neoplasm of uterus (HCC) Malnutrition of mild degree (Bianchi: 75% to less than 90% of standard weight) ([facility]) Moderate recurrent major depression ([facility]) Nuclear sclerotic cataract, bilateral Polycystic ovaries Posterior subcapsular age-related cataract of left eye Postmenopausal bleeding Primary open angle glaucoma of both eyes, mild stage Refractive error Chronic sinusitis Thyroglossal duct cyst Type 2 diabetes mellitus with hyperglycemia (CMS/HCC) ([facility]) Corneal epithelial basement membrane dystrophy Uncontrolled type 2 diabetes mellitus Non-pressure chronic ulcer left lower leg, limited to breakdown skin ([facility]) Review of Systems: General: Fever: Negative Night Sweats: Negative Eye: Blurry Vision:Negative Double Vision: Negative Ent: Headaches: Negative Sore throat: Negative Ear pain or drainage: Negative Allergy/Immunology: Hives: Negative Hematology/Lymphatic: Bleeding Problems: Negative Blood Clots: Negative Swollen Lymph Nodes: Negative Lungs: Cough: Negative SOB: Negative Cardiovascular: Chest Pain: Negative Palpitations:Negative GI: Nausea/Vomiting: Negative Abdominal Pain: Negative Change in Bowels: Negative : Dysuria: Negative Increase Urinary Frequency/Urgency: Negative Neuro: Seizures: Negative Confusion: Negative PAST MEDICAL HISTORY: Review of patient's family history indicates: Problem: Stroke Relation: Father Name: Age of Onset: (Not Specified) Problem: Obesity Relation: Mother Name: dementia Age of Onset: (Not Specified) Problem: Diabetes Relation: Mother Name: dementia Age of Onset: (Not Specified) Problem: High Blood Pressure Relation: Mother Name: dementia Age of Onset: (Not Specified) Problem: Heart disease Relation: Mother Name: dementia Age of Onset: (Not Specified) Problem: Stroke Relation: Paternal Grandfather Name: Age of Onset: (Not Specified) Problem: High Blood Pressure Relation: Father Name: Age of Onset: (Not Specified) Problem: Diabetes Relation: Father Name: Age of Onset: (Not Specified) Problem: Diabetes Relation: Paternal Grandfather Name: Age of Onset: (Not Specified) Problem: Heart attack Relation: Paternal Grandmother Name: Age of Onset: (Not Specified) Problem: Colon cancer Relation: Neg Hx Name: Age of Onset: (Not Specified) Problem: High Blood Pressure Relation: Brother Name: Age of Onset: (Not Specified) Problem: Cancer Relation: Father Name: Age of Onset: (Not Specified) Comment: bladder Problem: Obesity Relation: Father Name: Age of Onset: (Not Specified) Social History Socioeconomic History Marital status: Single Spouse name: Not on file Number of children: Not on file Years of education: Not on file Highest education level: Not on file Occupational History Not on file Tobacco Use Smoking status: Never Smokeless tobacco: Never Substance and Sexual Activity Alcohol use: No Drug use: No Sexual activity: Not on file Other Topics Concerns: Not on file Social History Narrative Not on file Social Determinants of Health Financial Resource Strain: Not on file Food Insecurity: Not on file Transportation Needs: Not on file Physical Activity: Not on file Stress: Not on file Social Connections: Not on file Intimate Partner Violence: Not on file Housing Stability: Not on file Past Surgical History: No date: CATARACT EXTRACTION; Bilateral 01/29/2018: CHOLECYSTECTOMY Comment: w/ LRYGB and Umbilical Hernia repair - Zografakis 09/03/2020: DILATION AND CURETTAGE OF UTERUS Comment: with hysteroscopy 01/29/2018: GASTRIC BYPASS Comment: LRYGB w/ Lap Aggie and Umbilical Hernia repair, Tiffanygrafrony No date: GASTRIC BYPASS 09/30/2020: HYSTERECTOMY Comment: TLH/BSO; Dr. Cuauhtemoc Stubbs 1980': MOUTH SURGERY Comment: gum removal to expose wisdom teeth 2000: THYROGLOSSAL DUCT EXCISION Comment: Nikole- Dr. Vin Keating No date: THYROIDECTOMY 01/29/2018: UMBILICAL HERNIA REPAIR Comment: w/ LRYGB and Lap Aggie - Zografakis 03/20/2017: UPPER GASTROINTESTINAL ENDOSCOPY Comment: pre op, Deepali 2012: WISDOM TOOTH EXTRACTION Comment: Dental Works Past Medical History: No date: Anxiety No date: Asthma No date: Deficiency of nutrient elements No date: Depression No date: Dry eye No date: Fatigue No date: Gastritis No date: GERD (gastroesophageal reflux disease) No date: Glaucoma No date: Glaucoma No date: Hyperlipidemia No date: Hypertension No date: Hypothyroid No date: Hypothyroidism No date: Incontinence No date: Intestinal malabsorption No date: Lymph edema No date: Morbid obesity ([facility]) No date: Obstructive sleep apnea No date: PMB (postmenopausal bleeding) No date: Polycystic ovarian syndrome No date: Psoriasis No date: SOB (shortness of breath) on exertion No date: Thyroglossal duct cyst No date: Type 2 diabetes mellitus without complication ([facility]) ([facility]) No date: Urinary tract infection No date: Uterine cancer ([facility]) ([facility]) 05/10/2017: Vitamin D deficiency 06/21/2018: Zinc deficiency Current Outpatient Medications on File Prior to Encounter: albuterol 108 (90 Base) MCG/ACT inhaler, Inhale 2 puffs every 6 hours as needed., Disp: , Rfl: atorvastatin (Lipitor) 40 MG tablet, Take by mouth daily., Disp: , Rfl: BD Insulin Syringe U/F 30G X 1/2 0.5 ML misc, 2 times daily with insulin, Disp: 200 each, Rfl: 3 brimonidine (Alphagan P) 0.1 % ophthalmic solution, 1 drop in the morning and 1 drop at noon and 1 drop in the evening., Disp: , Rfl: carvedilol (Coreg) 6.25 MG tablet, Take 12.5 mg by mouth in the morning and 12.5 mg in the evening., Disp: , Rfl: cholecalciferol (Vitamin D-3) 50 MCG (2000 UT) tablet, Take 2,000 Units by mouth in the morning., Disp: , Rfl: citalopram (CeleXA) 20 MG tablet, Take by mouth Every 24 hours., Disp: , Rfl: Continuous Blood Gluc Sensor (FreeStyle Satya 2 Sensor) [facility], 1 Device every 14 (fourteen) days., Disp: 9 each, Rfl: 3 EPINEPHRINE HCL, ANAPHYLAXIS, IM, Inject into the shoulder, thigh, or buttocks., Disp: , Rfl: fluconazole (Diflucan) 150 MG tablet, TAKE 1 TABLET BY MOUTH 1 TIME FOR 1 DAY, Disp: , Rfl: fluconazole (Diflucan) 200 MG tablet, Take 1 tablet by mouth daily. PRN yeast infections, Disp: , Rfl: FREESTYLE LITE test strip, USE DIRECTED FOUR TIMES DAILY, Disp: , Rfl: glucose 4 g chewable tablet, Chew 16 g if needed for low blood sugar., Disp: , Rfl: HumuLIN R 500 UNIT/ML CONCENTRATED injection, 8 units with breakfast 5 units with dinner per orange tip insulin syringe, Disp: 60 mL, Rfl: 3 hydrocortisone (West-Dmitri) 0.2 % cream, Apply topically every 12 hours., Disp: , Rfl: levothyroxine (Synthroid, Levoxyl) 175 MCG tablet, Take 1 tablet (175 mcg) by mouth every morning (before breakfast)., Disp: 90 tablet, Rfl: 3 mirabegron ER (Myrbetriq) 50 MG 24 hr tablet, Every 24 hours. PRN, Disp: , Rfl: multivitamin, Pediatric, (Flintstones Gummies) chewable tablet, Chew 1 tablet., Disp: , Rfl: mupirocin (Bactroban) 2 % ointment, Apply topically 3 times daily for 10 days., Disp: 22 g, Rfl: 0 olmesartan (BENIcar) 40 MG tablet, Take 40 mg by mouth., Disp: , Rfl: PROTEIN PO, Take by mouth., Disp: , Rfl: sulfamethoxazole-trimethoprim (Bactrim DS) 800-160 MG tablet, Take 1 tablet by mouth 2 times daily for 7 days., Disp: 14 tablet, Rfl: 0 timolol (Timoptic) 0.5 % ophthalmic solution, 1 drop in the morning and 1 drop in the evening., Disp: , Rfl: triamcinolone (Kenalog) 0.1 % cream, Apply to affected area 1-2 times daily as needed. Avoid face and groin., Disp: 30 g, Rfl: 2 Current Facility-Administered Medications on File Prior to Encounter: triamcinolone (Kenalog) 0.1 % cream, , Topical, Once, Jeorme Haile Perdomo MD Allergies as of 04/11/2023 - Reviewed 04/11/2023 -- Bimatoprost -- Other -- noted 05/06/2018 -- Doxycycline -- Hives -- noted 05/24/2022 -- Erythromycin -- Hives -- noted 05/24/2022 -- Levaquin [levofloxacin] -- Hives -- noted 05/24/2022 -- Macrobid [nitrofurantoin] -- Hives -- noted 05/24/2022 -- Penicillins -- Hives -- noted 05/24/2022 -- Levofloxacin in d5w -- Swelling -- noted 03/01/2015 -- Macrolides and ketolides -- Hives -- noted 02/27/2004 -- Molds & smuts -- Itching -- noted 03/24/2015 -- Nitrofurantoin monohyd macro -- Itching -- noted 12/22/2014 -- Other -- Itching -- noted 02/11/2013 PHYSICAL EXAM: Blood pressure (!) 190/79, pulse 68, temperature 36.6 C (97.9 F), temperature source Temporal, resp. rate 16. Gen: A and O x 3, NAD, well nourished Eyes: Sclera non icterus, PERRL Head: Normocephalic, non-tender Neck: Supple, no adenopathy, thyroid non tender and no masses,no carotid bruits Lungs: CTA, symmetrical Chest: RRR, no murmurs Abd: Soft, NT, ND, no HSM, no hernias, no bruits Ext: No edema, no cyanosis Psych: reveals appropriate mood, memory and judgment, Neuro: Reveals no gross motor or sensory deficits, Msk: 5/5 strength all 4 extremities, no joint tenderness + lymphedema bilat. Vascular: Pulses Fem + Pop + DP/PT + Assessment: BP (!) 190/79 (BP Location: Left arm, Patient Position: Sitting, BP Cuff Size: Adult) Pulse 68 Temp 36.6 C (97.9 F) (Temporal) Resp 16 Wound Reference Date is when first assessed. Measurements shown are from today's visit. Wound BP (!) 190/79 (BP Location: Left arm, Patient Position: Sitting, BP Cuff Size: Adult) Pulse 68 Temp 36.6 C (97.9 F) (Temporal) Resp 16 Wound : see CAHUILLA IMPRESSION:Non-pressure chronic ulcer left lower leg, 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) (primary encounter diagnosis) Plan: Plan for wound - Treatment: see orders Discussed appropriate home care of this wound. Wound redressed. Patient instructions were given. Follow up: 1 wk documented in this encounter [facility] 04-11-2023 Hospital Discharge instructions Zayda Bradford RN - 04/11/2023 11:00 AM EDT Follow up on Sunday Take antibiotics as ordered Cleanse area with antibacterial soap Apply Mupuricin to open area on left leg wound. Cover with Xeroform and gauze. Change dressing daily Bilateral Unna boots and profores for compression Elevate legs as much as possible Okay to use ABD pads at the top of the profore for padding. documented in this encounter [facility] 04-10-2023 History of Present illness Narrative (H40.7511) Primary open angle glaucoma of both eyes, mild stage (primary encounter diagnosis) Comment: Discussed stable intraocular pressure both eyes. Plan: OCT nerve both eyes done today and reviewed in office. Reviewed stable both eyes. Continue Timolol 0.5% both eyes twice a day Continue Brimonidine 0.1% both eyes three times a day. Last visit: Pena visual field (HVF) 24-2 both eyes done today and reviewed in office. Rx for both sent for 90 day supply with 3 Refills. Previous visit: OCT nerve both eyes done today and reviewed. (E11.6528) 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 and macular edema, without long-term current use of insulin (HCC) Comment: Discussed retinopathy both eyes with diabetic macular edema both eyes, not clinically significant left eye. Plan: Continue blood sugar control and monitor with primary care physician. Recommend baseline Retina consult. 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 Plan: Recommend frequent lubrication both eyes. Limitations discussed. (H04.123) Dry eye syndrome of bilateral lacrimal glands Comment: Discussed findings on exam. Plan: Recommend Artificial tears both eyes four times a day and as needed. Consider preservative free Artificial tears. (H52.7) Refractive error Comment: Discussed change in Manifest refraction. Plan: Manifest refraction updated and dispensed. 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 Plan: Monitor Follow up for I Retina consult 1-2 mos. IOP check and visual field 24-2 both eyes in 6 mos. I have confirmed and edited as necessary the relevant ophthalmic history, ROS, and the neuro exam findings as obtained by others. I have seen and examined this patient. I have discussed the case and the management of this patient's care with the Resident/Fellow, if applicable. I also have reviewed and agree with the assessment and plan as stated above and agree with all of its relevant components. Moses Acevedo MD April 10, 2023 4:48 PM documented in this encounter [facility] 04-09-2023 History of Present illness Narrative Pt. Has suffered skin vesicles/blebs, weeping serous fluid with partial thickness breakdown and small areas of full thickness. No streaking. ? Due to heat/sheer. Will Rx with topical care and ATB's. Debridement:Excisional Debridement Using scissors and forceps the wound(s)/ulcer(s) was/were sharply debrided down through and including the removal of epidermis, dermis, and subcutaneous tissue. Devitalized Tissue Debrided: fibrin, necrotic/eschar, and exudate Pre Debridement Measurements: Are located in the Wound/Ulcer Documentation Flow Sheet Diagnosis: 1. Non-pressure chronic ulcer left lower leg, 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) Post Debridement Measurements: Wound/Ulcer Descriptions are listed under Physical Exam above. Wound/Ulcer Descriptions are Pre Debridement except measurements Percent of Wound/Ulcer Debrided: 50% Total Surface Area Debrided: 40 sq cm Bleeding: None Hemostasis Achieved: not needed Procedural Pain: 0 / 10 Post Procedural Pain: 0 / 10 Response to treatment: tolerated well documented in this encounter [facility] 04-09-2023 History of Present illness Narrative Pt. Has suffered skin vesicles/blebs, weeping serous fluid with partial thickness breakdown and small areas of full thickness. No streaking. ? Due to heat/sheer. Will Rx with topical care and ATB's. Debridement:Excisional Debridement Using scissors and forceps the wound(s)/ulcer(s) was/were sharply debrided down through and including the removal of epidermis, dermis, and subcutaneous tissue. Devitalized Tissue Debrided: fibrin, necrotic/eschar, and exudate Pre Debridement Measurements: Are located in the Wound/Ulcer Documentation Flow Sheet Diagnosis: 1. Non-pressure chronic ulcer left lower leg, 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) Post Debridement Measurements: Wound/Ulcer Descriptions are listed under Physical Exam above. Wound/Ulcer Descriptions are Pre Debridement except measurements Percent of Wound/Ulcer Debrided: 50% Total Surface Area Debrided: 40 sq cm Bleeding: None Hemostasis Achieved: not needed Procedural Pain: 0 / 10 Post Procedural Pain: 0 / 10 Response to treatment: tolerated well documented in this encounter [facility] 04-09-2023 Hospital Discharge instructions Zayda Bradford RN - 04/09/2023 1:00 PM EDT Follow up on Sunday Take antibiotics as ordered Cleanse area with antibacterial soap Apply Neosporin to open area on left leg wound. Cover with Xeroform and gauze. Change dressing daily Bilateral Unna boots and profores for compression Elevate legs as much as possible Okay to use ABD pads at the top of the profore for padding. documented in this encounter [facility] 04-09-2023 Hospital Discharge instructions Zayda Bradford RN - 04/09/2023 1:00 PM EDT Follow up on Sunday Take antibiotics as ordered Cleanse area with antibacterial soap Apply Neosporin to open area on left leg wound. Cover with Xeroform and gauze. Change dressing daily Bilateral Unna boots and profores for compression Elevate legs as much as possible Okay to use ABD pads at the top of the profore for padding. documented in this encounter [facility] 04-09-2023 Miscellaneous Notes Encounter addended by: Mackenzie Avitia RN on: 04/12/2023 10:07 AM Actions taken: Visit diagnoses modified documented in this encounter [facility] 04-09-2023 Note Encounter addended b y: Mackenzie Avitia RN on: 04/12/2023 10:07 AM Actions taken: Visit diagnoses modified [facility] 03-28-2023 History of Present illness Narrative [facility] Nurse Visit Note Dameon Potter AGE: 68 y.o. GENDER: female : 1955 EPISODE DATE: 03/28/23 Arrival Information: Patient Arrived: Walker Transfer Assistance: None Accompanied by: self Any changes in medical history since last visit: No Added or removed any Medications: No Any new allergies: No Any falls since last visit: No Any hospitalizations or surgeries since last visit: No Assessment: Vitals: 03/28/23 1150 BP: (!) 147/83 Pulse: 61 Resp: 20 Treatment: Wound: none Patient was seen for a nurse visit to have profores changed. Dressing was removed. Wound was cleansed with soap and water, lotion was applied to periwound, ABD pads to heel dressing was applied to wound, Unna boot, profore wraps with single layer tubigrip compression wrap was applied per provider's orders. Discharge Information: Patient was discharged in stable condition. Ambulatory Status: Walker Discharge Destination: home Transportation: Private Auto Accompanied by: patient Schedule Follow up Appointment: yes No orders of the defined types were placed in this encounter. documented in this encounter [facility] 03-28-2023 Hospital Discharge instructions Moses Oliveira - 03/28/2023 11:00 AM EDT Nurse visit in [address] Perdomo in 4 weeks Elevate legs to the level of the heart or above for 30 minutes daily and/or when sitting, a frequency of: as much as possible Unna Boot: Do not remove Unna Boot. Keep dry. If pain or swelling or discoloration of toes noted, elevate legs above level of heart for 1 hour. If no relief, call the center. If unable to reach center, remove boot and keep leg elevated until contact with center can be made. Multilayer Compression Therapy - 4 layers: Do not get legs with compression wrap wet. If wraps seem too tight, elevate legs above level of heart for one hour. If no relief, call the wound center. documented in this encounter [facility] 03-23-2023 History of Present illness Narrative [facility] [address] [place] [address] Dept: [phone] Dept Visit Date: 03/23/2023 Individual DSME Appointment Dameon Potter,1955, 68 y.o., Patient here for diabetes education. Diabetes Education Assessment SUBJECTIVE Member desires education about diabetes mellitus OBJECTIVE No clinical evaluation done in session ASSESSMENT Deficient knowledge for self-management of diabetes. PLAN The purpose of this session is to provide fundamental education to patients with diabetes mellitus . Diabetes education provided today: Diabetes basic anatomy and physiology. Checking BG, frequency, Result interpretation, Glycemic goals, identifying trends, availability of phone applications, CGM (Continuous Glucose Monitoring) and in the need to communicate results to physician (ordering), regularly The most recent recorded HgbA1C result 10.2; its interpretation, ADA/ AACE goal and the inter-relationship between physical activity, food intake and oral med(s), insulin(s) and stress. Managing high and low glucose readings, Recommended to have source of glucose on person at all times to treat hypoglycemia. Insulin type, method of action, method of administration Rotation of sites for subcutaneous medication injection Nutrition as a mainstream of diabetes therapy. Carbs: importance of carb counting, incorporation of protein with each meal to reduce Glycemic index, importance of portions Fats: Saturated, Polyunsaturated, Monounsaturated, meal planning and supplements. Physical activity: Its role in increasing insulin sensitivity. Continuous Glucose monitor. How it works and checks blood glucose, frequently. Potential and prevention of complications Educational Materials given to patient: Hypoglycemia Hyperglycemia Sick Day Management Living with Diabetes PLAN: --Patient to come back with reader (had sensors) for placement --Patient to begin reading labels and counting carbs --Patient to eat with consistent carbohydrate and protein --continue current medication regimen Lifestyle/Healthy Coping Do you work? [x] No [] Yes, Type of work and work hours: Language: english___ List cultural or caodaism beliefs that may impact your care: __none __ Last grade completed? Can you read/write Senegalese? [x] Yes [] No Learning Barriers: [] Visual [] Auditory [] Literacy [] Language [] Other: How do you learn best? [x] Written materials [x] Verbal Discussion [x] Video [] Other Diabetes and Support How would you rate your overall health? [] Excellent [] Good [x] Fair [] Poor List anything about Diabetes that causes you Stress or Distress? How do you deal with this stress/distress? Primary Support Person: Being Active/Physical Activity What physical activity do you do regularly? How often: Do you have any barriers to physical activity? Clinical History [x]See EMR for complete data Educator Completes This Section Yes Diabetes Pathophysiology and Treatment [] Eye Problems: Diabetes type: Year diagnosed? [] Nerve Problems: [] Kidney Problems: [] Stomach or Bowel Problems: [] Foot: If previous diabetes education when/where: [] Impotence: [] Frequent Infections: What are your goals for the education session? [] Heart Problems: [] Lung Breathing Problems: Monitoring Glucose and Health Literacy* [] High/Low Blood Pressure: Blood Glucose Checks? [] Stroke: [] Arthritis: CGM type: Chronic Complications: Preventing Detecting Treatment [] Last PCP visit date? What are bg targets? [] Did MD exam feet? If using CGM, what is your TIR target? [] Do you exam your feet daily? What is your A1C target? [] Do you see a [employer]? Last visit date: Taking Medications and Health Literacy [] Do you see a dentist? Last visit date: DM oral medications/can it cause low bgs? [] Do you see an eye doctor? Last visit date: [] Did you get the flu vaccine? Last date: Insulin/DM Injectables: Type/when/dose/sliding scale/sites/storage/can it cause low bgs? [] Did you get the shingles vaccines? [] Did you get the COVID 19 vaccine? [] Are you ? If so, when are you due? [] Are you planning to get ? Healthy Eating and Health Literacy List any complications: Diet: Knows which foods raise bg? Do you read food labels? [] Yes [] No Food allergies/ GI Issues Who shops/cooks: [] Beverages [] Fast Food restaurants Acute Complications: Preventing Detecting Treatment [] Recent high blood glucose (350 or more)? How often: Symptoms: How do you treat High Blood Glucose (Hyperglycemia)? Meals eaten: [] Have you ever had DKA?___ When?____ [] Breakfast [] Do you ever test for ketones? [] Lunch What would you do if you have ketones? [] Dinner [] Do you have low blood glucose? (Less than 70) How often? Treatment? [] Snacks Food [] Can you tell when you have hypoglycemia? [] Needs referral to RD for MNT How do you manage your diabetes when you are sick? _ Educators Signature/Date Other Medications: List or attach Educator completes this section: [x] Completion of assessment deferred to future visit encounters, due to lack of time and/or patient request How are you prepared with diabetes medications and supplies in case you had to leave your home with little notice and uncertainty of how long? Time spent with patient 60 minutes for diabetes education. I have reviewed previous records and previous workup. documented in this encounter [facility] 03-14-2023 History of Present illness Narrative INITIAL VISIT - WOUND CARE Dameon Potter AGE: 68 y.o. GENDER: female : 1955 TODAY'S DATE: 03/14/2023 HISTORY OF PRESENT ILLNESS: Dameon Potter is a 68 y.o. female who presents today in F/U. No open areas. Lymphedema well-controlled in LE's. Some mild lymphatic stasis right thigh. Wound Location : left, right, and leg The patients pain is Problem list: Patient Active Problem List: Endometrial cancer (CMS/HCC) (HCC) Obesity with body mass index greater than 30 OAB (overactive bladder) Uncontrolled type 2 diabetes mellitus with hyperglycemia, with long-term current use of insulin (HCC) Deficiency of nutrient elements Zinc deficiency Lymphedema Hepatic steatosis Calculus of gallbladder with chronic cholecystitis without obstruction Vitamin D deficiency Intestinal malabsorption Morbid obesity (HCC) Hypothyroidism Essential hypertension, benign Mixed hyperlipidemia Fatigue Obstructive sleep apnea SOB (shortness of breath) on exertion Gastritis without bleeding PND (post-nasal drip) Gastroesophageal reflux disease without esophagitis Asthma without status asthmaticus Candidal vulvovaginitis Cardiomegaly Cortical cataract of both eyes Diabetic retinopathy associated with type 2 diabetes mellitus (HCC) Diastolic dysfunction Dry eye syndrome of bilateral lacrimal glands Malignant neoplasm of uterus (HCC) Malnutrition of mild degree (Bianchi: 75% to less than 90% of standard weight) (HCC) Moderate recurrent major depression (HCC) Nuclear sclerotic cataract, bilateral Polycystic ovaries Posterior subcapsular age-related cataract of left eye Postmenopausal bleeding Primary open angle glaucoma of both eyes, mild stage Refractive error Chronic sinusitis Thyroglossal duct cyst Type 2 diabetes mellitus with hyperglycemia (CMS/HCC) (HCC) Corneal epithelial basement membrane dystrophy Uncontrolled type 2 diabetes mellitus Review of Systems: General: Fever: Negative Night Sweats: Negative Eye: Blurry Vision:Negative Double Vision: Negative Ent: Headaches: Negative Sore throat: Negative Ear pain or drainage: Negative Allergy/Immunology: Hives: Negative Hematology/Lymphatic: Bleeding Problems: Negative Blood Clots: Negative Swollen Lymph Nodes: Negative Lungs: Cough: Negative SOB: Negative Cardiovascular: Chest Pain: Negative Palpitations:Negative GI: Nausea/Vomiting: Negative Abdominal Pain: Negative Change in Bowels: Negative : Dysuria: Negative Increase Urinary Frequency/Urgency: Negative Neuro: Seizures: Negative Confusion: Negative PAST MEDICAL HISTORY: Review of patient's family history indicates: Problem: Stroke Relation: Father Name: Age of Onset: (Not Specified) Problem: Obesity Relation: Mother Name: dementia Age of Onset: (Not Specified) Problem: Diabetes Relation: Mother Name: dementia Age of Onset: (Not Specified) Problem: High Blood Pressure Relation: Mother Name: dementia Age of Onset: (Not Specified) Problem: Heart disease Relation: Mother Name: dementia Age of Onset: (Not Specified) Problem: Stroke Relation: Paternal Grandfather Name: Age of Onset: (Not Specified) Problem: High Blood Pressure Relation: Father Name: Age of Onset: (Not Specified) Problem: Diabetes Relation: Father Name: Age of Onset: (Not Specified) Problem: Diabetes Relation: Paternal Grandfather Name: Age of Onset: (Not Specified) Problem: Heart attack Relation: Paternal Grandmother Name: Age of Onset: (Not Specified) Problem: Colon cancer Relation: Neg Hx Name: Age of Onset: (Not Specified) Problem: High Blood Pressure Relation: Brother Name: Age of Onset: (Not Specified) Problem: Cancer Relation: Father Name: Age of Onset: (Not Specified) Comment: bladder Problem: Obesity Relation: Father Name: Age of Onset: (Not Specified) Social History Socioeconomic History Marital status: Single Spouse name: Not on file Number of children: Not on file Years of education: Not on file Highest education level: Not on file Occupational History Not on file Tobacco Use Smoking status: Never Smokeless tobacco: Never Substance and Sexual Activity Alcohol use: No Drug use: No Sexual activity: Not on file Other Topics Concerns: Not on file Social History Narrative Not on file Social Determinants of Health Financial Resource Strain: Not on file Food Insecurity: Not on file Transportation Needs: Not on file Physical Activity: Not on file Stress: Not on file Social Connections: Not on file Intimate Partner Violence: Not on file Housing Stability: Not on file Past Surgical History: No date: CATARACT EXTRACTION; Bilateral 01/29/2018: CHOLECYSTECTOMY Comment: w/ LRYGB and Umbilical Hernia repair - [facility] 09/03/2020: DILATION AND CURETTAGE OF UTERUS Comment: with hysteroscopy 01/29/2018: GASTRIC BYPASS Comment: LRYGB w/ Lap Aggie and Umbilical Hernia repair, Deepali No date: GASTRIC BYPASS 09/30/2020: HYSTERECTOMY Comment: TLH/BSO; Dr. Cuauhtemoc Stubbs : MOUTH SURGERY Comment: gum removal to expose wisdom teeth 2000: THYROGLOSSAL DUCT EXCISION Comment: [facility]- Dr. Vin Keating No date: THYROIDECTOMY 01/29/2018: UMBILICAL HERNIA REPAIR Comment: w/ LRYGB and Lap Aggie - Zografakis 03/20/2017: UPPER GASTROINTESTINAL ENDOSCOPY Comment: pre opDeepali 2012: WISDOM TOOTH EXTRACTION Comment: [facility] Past Medical History: No date: Anxiety No date: Asthma No date: Deficiency of nutrient elements No date: Depression No date: Dry eye No date: Fatigue No date: Gastritis No date: GERD (gastroesophageal reflux disease) No date: Glaucoma No date: Glaucoma No date: Hyperlipidemia No date: Hypertension No date: Hypothyroid No date: Hypothyroidism No date: Incontinence No date: Intestinal malabsorption No date: Lymph edema No date: Morbid obesity (HCC) No date: Obstructive sleep apnea No date: PMB (postmenopausal bleeding) No date: Polycystic ovarian syndrome No date: Psoriasis No date: SOB (shortness of breath) on exertion No date: Thyroglossal duct cyst No date: Type 2 diabetes mellitus without complication ([facility]) ([facility]) No date: Urinary tract infection No date: Uterine cancer ([facility]) ([facility]) 05/10/2017: Vitamin D deficiency 06/21/2018: Zinc deficiency Current Outpatient Medications on File Prior to Encounter: albuterol 108 (90 Base) MCG/ACT inhaler, Inhale 2 puffs every 6 hours as needed., Disp: , Rfl: atorvastatin (Lipitor) 40 MG tablet, Take by mouth daily., Disp: , Rfl: BD Insulin Syringe U/F 30G X 1/2 0.5 ML misc, 2 times daily with insulin, Disp: 200 each, Rfl: 3 brimonidine (Alphagan P) 0.1 % ophthalmic solution, 1 drop in the morning and 1 drop at noon and 1 drop in the evening., Disp: , Rfl: carvedilol (Coreg) 6.25 MG tablet, Take 12.5 mg by mouth in the morning and 12.5 mg in the evening., Disp: , Rfl: cholecalciferol (Vitamin D-3) 50 MCG (2000 UT) tablet, Take 2,000 Units by mouth in the morning., Disp: , Rfl: citalopram (CeleXA) 20 MG tablet, Take by mouth Every 24 hours., Disp: , Rfl: Continuous Blood Gluc Sensor (FreeStyle Satya 2 Sensor) mis, 1 Device every 14 (fourteen) days., Disp: 9 each, Rfl: 3 EPINEPHRINE HCL, ANAPHYLAXIS, IM, Inject into the shoulder, thigh, or buttocks., Disp: , Rfl: fluconazole (Diflucan) 150 MG tablet, TAKE 1 TABLET BY MOUTH 1 TIME FOR 1 DAY, Disp: , Rfl: fluconazole (Diflucan) 200 MG tablet, Take 1 tablet by mouth daily. PRN yeast infections, Disp: , Rfl: FREESTYLE LITE test strip, USE DIRECTED FOUR TIMES DAILY, Disp: , Rfl: glucose 4 g chewable tablet, Chew 16 g if needed for low blood sugar., Disp: , Rfl: HumuLIN R 500 UNIT/ML CONCENTRATED injection, 8 units with breakfast 5 units with dinner per orange tip insulin syringe, Disp: 60 mL, Rfl: 3 hydrocortisone (West-Dmitri) 0.2 % cream, Apply topically every 12 hours., Disp: , Rfl: levothyroxine (Synthroid, Levoxyl) 175 MCG tablet, Take 1 tablet (175 mcg) by mouth every morning (before breakfast)., Disp: 90 tablet, Rfl: 3 mirabegron ER (Myrbetriq) 50 MG 24 hr tablet, Every 24 hours. PRN, Disp: , Rfl: multivitamin, Pediatric, (Flintstones Gummies) chewable tablet, Chew 1 tablet., Disp: , Rfl: olmesartan (BENIcar) 40 MG tablet, Take 40 mg by mouth., Disp: , Rfl: PROTEIN PO, Take by mouth., Disp: , Rfl: timolol (Timoptic) 0.5 % ophthalmic solution, 1 drop in the morning and 1 drop in the evening., Disp: , Rfl: triamcinolone (Kenalog) 0.1 % cream, Apply to affected area 1-2 times daily as needed. Avoid face and groin., Disp: 30 g, Rfl: 2 Current Facility-Administered Medications on File Prior to Encounter: triamcinolone (Kenalog) 0.1 % cream, , Topical, Once, Jeromeniurka Perdomo MD Allergies as of 03/14/2023 - Reviewed 03/14/2023 -- Bimatoprost -- Other -- noted 05/06/2018 -- Doxycycline -- Hives -- noted 05/24/2022 -- Erythromycin -- Hives -- noted 05/24/2022 -- Levaquin [levofloxacin] -- Hives -- noted 05/24/2022 -- Macrobid [nitrofurantoin] -- Hives -- noted 05/24/2022 -- Penicillins -- Hives -- noted 05/24/2022 -- Levofloxacin in d5w -- Swelling -- noted 03/01/2015 -- Macrolides and ketolides -- Hives -- noted 02/27/2004 -- Molds & smuts -- Itching -- noted 03/24/2015 -- Nitrofurantoin monohyd macro -- Itching -- noted 12/22/2014 -- Other -- Itching -- noted 02/11/2013 PHYSICAL EXAM: Temperature 36.4 C (97.5 F), temperature source Infrared, resp. rate 20. Gen: A and O x 3, NAD, well nourished Eyes: Sclera non icterus, PERRL Head: Normocephalic, non-tender Neck: Supple, no adenopathy, thyroid non tender and no masses,no carotid bruits Lungs: CTA, symmetrical Chest: RRR, no murmurs Abd: Soft, NT, ND, no HSM, no hernias, no bruits Ext: No edema, no cyanosis Psych: reveals appropriate mood, memory and judgment, Neuro: Reveals no gross motor or sensory deficits, Msk: 5/5 strength all 4 extremities, no joint tenderness: + lymphedema as noted above. Vascular: Pulses Fem + Pop DP/PT + Assessment: Temp 36.4 C (97.5 F) (Infrared) Resp 20 Wound Reference Date is when first assessed. Measurements shown are from today's visit. Wound Temp 36.4 C (97.5 F) (Infrared) Resp 20 Wound : see CAHUILLA IMPRESSION:Lymphedema (primary encounter diagnosis) Plan: Plan for wound - Treatment: see orders Discussed appropriate home care of this wound. Wound redressed. Patient instructions were given. Follow up: as planned documented in this encounter [facility] 03-14-2023 Hospital Discharge instructions Zayda Bradford RN - 03/14/2023 11:00 AM EDT Nurse visit in [address] Perdomo in 4 weeks Elevate legs to the level of the heart or above for 30 minutes daily and/or when sitting, a frequency of: as much as possible Unna Boot: Do not remove Unna Boot. Keep dry. If pain or swelling or discoloration of toes noted, elevate legs above level of heart for 1 hour. If no relief, call the center. If unable to reach center, remove boot and keep leg elevated until contact with center can be made. Multilayer Compression Therapy - 4 layers: Do not get legs with compression wrap wet. If wraps seem too tight, elevate legs above level of heart for one hour. If no relief, call the wound center. documented in this encounter [facility] 03-02-2023 History of Present illness Narrative RADIATION ONCOLOGY FOLLOW UP PATIENT: Dameon Potter DATE OF SERVICE: 03/02/2023 : 1955 AGE: 68 y.o. 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 MMR proteins intact. STAGE: pT2 NX M0, II HISTORY OF PRESENT ILLNESS: Ms. Potter is a 68-year-old female who presented to her screening representative with postmenopausal bleeding. A D&C was performed on 09/03/2020 which identified grade 2 endometrial cancer, p53 wild-type. She was seen by Dr. Stubbs and on 09/30/2020 underwent a robotic hysterectomy with BSO. Per operative note, due to body habitus, sentinel node removal could not be performed. Pathology was noted to show involvement of the ectocervical/vaginal cuff margin. Patient was referred for radiation therapy. INTERVAL SINCE RADIATION: 2 years 11/29/20 - 01/03/21: 45.00/45.00 Gy to the Pelvis in 25 fractions of 1.80 Gy using the VMAT/Daily IGRT technique with 10 MV over 35 days. 01/14/21 - 01/28/21: 30.00/30.00 Gy to the Vaginal Brachy in 5 fractions of 6.00 Gy using the Brachytherapy technique with HDR: Ir192 over 14 days. INTERVAL HISTORY: The patient returns for follow-up today. She denies any new health issues. She continues to follow with [facility] every 6 months and is scheduled to see them again in April. Appetite and energy level are stable. She utilizes a wheeled walker for ambulation. She continues to follow with wound care for the lymphedema of the lower extremities. She continues to follow with endocrinology for the diabetes. She utilizes Imodium as needed for diarrhea. Intermittent urinary incontinence. PAST MEDICAL HISTORY: Past Medical History: Diagnosis Date Anxiety Asthma Deficiency of nutrient elements Depression Dry eye Fatigue Gastritis GERD (gastroesophageal reflux disease) Glaucoma Glaucoma Hyperlipidemia Hypertension Hypothyroid Hypothyroidism Incontinence Intestinal malabsorption Lymph edema Morbid obesity (HCC) Obstructive sleep apnea PMB (postmenopausal bleeding) Polycystic ovarian syndrome Psoriasis SOB (shortness of breath) on exertion Thyroglossal duct cyst Type 2 diabetes mellitus without complication (CMS/HCC) (HCC) Urinary tract infection Uterine cancer (CMS/HCC) (HCC) Vitamin D deficiency 05/10/2017 Zinc deficiency 06/21/2018 PAST SURGICAL HISTORY: Past Surgical History: Procedure Laterality Date CATARACT EXTRACTION Bilateral CHOLECYSTECTOMY 01/29/2018 w/ LRYGB and Umbilical Hernia repair - [facility] DILATION AND CURETTAGE OF UTERUS 09/03/2020 with hysteroscopy GASTRIC BYPASS 01/29/2018 LRYGB w/ Lap Aggie and Umbilical Hernia repair, [facility] GASTRIC BYPASS HYSTERECTOMY 09/30/2020 [facility]/BSO; Dr. Cuauhtemoc Stubbs MOUTH SURGERY gum removal to expose wisdom teeth THYROGLOSSAL DUCT EXCISION 2000 [facility]- Dr. Vin Keating THYROIDECTOMY UMBILICAL HERNIA REPAIR 01/29/2018 w/ LRYGB and Lap Aggie - [facility] UPPER GASTROINTESTINAL ENDOSCOPY 03/20/2017 pre op, [facility] WISDOM TOOTH EXTRACTION 2012 [facility] ALLERGIES: Allergies as of 03/02/2023 - Reviewed 03/02/2023 Allergen Reaction Noted Bimatoprost Other 05/06/2018 Doxycycline Hives 05/24/2022 Erythromycin Hives 05/24/2022 Levaquin [levofloxacin] Hives 05/24/2022 Macrobid [nitrofurantoin] Hives 05/24/2022 Penicillins Hives 05/24/2022 Levofloxacin in d5w Swelling 03/01/2015 Macrolides and ketolides Hives 02/27/2004 Molds & smuts Itching 03/24/2015 Nitrofurantoin monohyd macro Itching 12/22/2014 Other Itching 02/11/2013 MEDICATIONS: Current Outpatient Medications Medication Sig Dispense Refill albuterol 108 (90 Base) MCG/ACT inhaler Inhale 2 puffs every 6 hours as needed. atorvastatin (Lipitor) 40 MG tablet Take by mouth daily. BD Insulin Syringe U/F 30G X 1/2 0.5 ML misc 2 times daily with insulin 200 each 3 brimonidine (Alphagan P) 0.1 % ophthalmic solution 1 drop in the morning and 1 drop at noon and 1 drop in the evening. carvedilol (Coreg) 6.25 MG tablet Take 12.5 mg by mouth in the morning and 12.5 mg in the evening. cholecalciferol (Vitamin D-3) 50 MCG (2000 UT) tablet Take 2,000 Units by mouth in the morning. citalopram (CeleXA) 20 MG tablet Take by mouth Every 24 hours. Continuous Blood Gluc Sensor (FreeStyle Satya 2 Sensor) misc 1 Device every 14 (fourteen) days. 9 each 3 EPINEPHRINE HCL, ANAPHYLAXIS, IM Inject into the shoulder, thigh, or buttocks. fluconazole (Diflucan) 150 MG tablet TAKE 1 TABLET BY MOUTH 1 TIME FOR 1 DAY fluconazole (Diflucan) 200 MG tablet Take 1 tablet by mouth daily. PRN yeast infections FREESTYLE LITE test strip USE DIRECTED FOUR TIMES DAILY glucose 4 g chewable tablet Chew 16 g if needed for low blood sugar. HumuLIN R 500 UNIT/ML CONCENTRATED injection 8 units with breakfast 5 units with dinner per orange tip insulin syringe 60 mL 3 hydrocortisone (West-Dmitri) 0.2 % cream Apply topically every 12 hours. levothyroxine (Synthroid, Levoxyl) 175 MCG tablet Take 1 tablet (175 mcg) by mouth every morning (before breakfast). 90 tablet 3 mirabegron ER (Myrbetriq) 50 MG 24 hr tablet Every 24 hours. PRN multivitamin, Pediatric, (Flintstones Gummies) chewable tablet Chew 1 tablet. olmesartan (BENIcar) 40 MG tablet Take 40 mg by mouth. PROTEIN PO Take by mouth. timolol (Timoptic) 0.5 % ophthalmic solution 1 drop in the morning and 1 drop in the evening. triamcinolone (Kenalog) 0.1 % cream Apply to affected area 1-2 times daily as needed. Avoid face and groin. 30 g 2 Current Facility-Administered Medications Medication Dose Route Frequency Provider Last Rate Last Admin triamcinolone (Kenalog) 0.1 % cream Topical Once Jerome Perdomo MD REVIEW OF SYSTEMS: As above. Pain score 0. KPS: 70 SUMMARY OF SIGNIFICIANT X-RAY/LABORATORY FINDINGS: CT for radiation planning on 01/10/2021 identified diverticular disease in the sigmoid without diverticulitis. Post-surgery changes noted. Hemoglobin A1c level on 01/19/2023 was 10.2%. CMP on 10/06/2022 was within normal limits except for glucose level of 306. PHYSICAL EXAM: Nurse present for full visit. BP (!) 193/79 Temp 96.9 F (36.1 C) Resp 18 Ht 5' 6 (1.676 m) Wt 281 lb (127 kg) SpO2 97% BMI 45.35 kg/m /Pain Score: 0 - No pain GENERAL: Awake, alert, oriented x3, no anxiety, dressed appropriately, appears of stated age. Ambulates with wheeled walker. Speech pattern fluent. LUNGS: Clear to auscultation. No rales or rhonchi. HEART: Regular rate and rhythm, S1-S2 noted no murmur. NECK: Symmetric. NODES: No neck, supraclavicular, infraclavicular adenopathy. ABDOMEN: Soft, nontender, nondistended. No hepatosplenomegaly, no suspicious mass. [facility]: Normal external genitalia. Vaginal vault without mass or ulcerations. Mild erythema noted apically as prior. Mild erythema of the perineal region secondary to the urinary incontinence as prior. No inguinal adenopathy. MUSCULOSKELETAL: Chronic lower extremity lymphedema identified. Legs are wrapped. SKIN: Under pannus and and groins is intact. IMPRESSION: Dameon Potter is a 68 y.o. female with history of uterine cancer. Clinically there is no sign of recurrence. She continues to follow with her multiple physicians. Scheduled to see [facility] in April. PLAN: Return in 6 months. Ino He MD [facility] Department of Radiation Oncology is an Accredited Facility of the [employer] ([employer]). Total time: 25 minutes in chart review, lab/radiology evaluation/interpretation, patient exam, patient counseling and care coordination. This document was completed utilizing speech recognition software. Grammatical errors, random word insertions, pronoun errors, and incomplete sentences are an occasional consequence of this system due to software limitations, ambient noise, and hardware issues. Any formal questions or concerns about the content, text or information contained within the body of this dictation should be directly addressed to the provider for clarification. documented in this encounter [facility] 03-02-2023 Nurse Note Here alone for follow up with Dr. He. Reports good appetite and energy; uses wheeled walker for ambulation. Denies any vaginal discharge/bleeding, urinary or bowel issues but does have occasional diarrhea. Medications reviewed. [facility] 03-02-2023 Nurse Note Pt prepped for pelvic exam. This nurse assisted Dr. He with exam. [facility] 03-02-2023 Nurse Note Here alone for follow up with Dr. He. Reports good appetite and energy; uses wheeled walker for ambulation. Denies any vaginal discharge/bleeding, urinary or bowel issues but does have occasional diarrhea. Medications reviewed. Pt prepped for pelvic exam. This nurse assisted Dr. He with exam. documented in this encounter [facility] 02-28-2023 History of Present illness Narrative [facility] Nurse Visit Note Dameon Potter AGE: 68 y.o. GENDER: female : 1955 EPISODE DATE: 02/28/23 Arrival Information: Patient Arrived: Walker Transfer Assistance: None Accompanied by: self Any changes in medical history since last visit: No Added or removed any Medications: No Any new allergies: No Any falls since last visit: No Any hospitalizations or surgeries since last visit: No Assessment: Treatment: Wound: no open wounds Patient was seen for a nurse visit to have profores changed. Dressing was removed. Bilateral 4 layer Profores with UB and SLTG compression wrap was applied per provider's orders. Discharge Information: Patient was discharged in stable condition. Ambulatory Status: Walker Discharge Destination: home Transportation: Private Auto Accompanied by: patient Schedule Follow up Appointment: no No orders of the defined types were placed in this encounter. documented in this encounter [facility] 02-14-2023 History of Present illness Narrative INITIAL VISIT - WOUND CARE Dameon Potter AGE: 68 y.o. GENDER: female : 1955 TODAY'S DATE: 02/14/2023 HISTORY OF PRESENT ILLNESS: Dameon Potter is a 68 y.o. female who presents today with lymphedema, well-controlled with wraps. Only new complaint ismild dermatitis, likely heat rash, at upper edge of wrap, right, just below knee. Wound Location : left, right, and leg The patients pain is Problem list: Patient Active Problem List: Endometrial cancer (CMS/HCC) (HCC) Obesity with body mass index greater than 30 OAB (overactive bladder) Uncontrolled type 2 diabetes mellitus with hyperglycemia, with long-term current use of insulin (HCC) Deficiency of nutrient elements Zinc deficiency Lymphedema Hepatic steatosis Calculus of gallbladder with chronic cholecystitis without obstruction Vitamin D deficiency Intestinal malabsorption Morbid obesity (HCC) Hypothyroidism Essential hypertension, benign Mixed hyperlipidemia Fatigue Obstructive sleep apnea SOB (shortness of breath) on exertion Gastritis without bleeding PND (post-nasal drip) Gastroesophageal reflux disease without esophagitis Asthma without status asthmaticus Candidal vulvovaginitis Cardiomegaly Cortical cataract of both eyes Diabetic retinopathy associated with type 2 diabetes mellitus (HCC) Diastolic dysfunction Dry eye syndrome of bilateral lacrimal glands Malignant neoplasm of uterus (HCC) Malnutrition of mild degree (Bianchi: 75% to less than 90% of standard weight) (HCC) Moderate recurrent major depression (HCC) Nuclear sclerotic cataract, bilateral Polycystic ovaries Posterior subcapsular age-related cataract of left eye Postmenopausal bleeding Primary open angle glaucoma of both eyes, mild stage Refractive error Chronic sinusitis Thyroglossal duct cyst Type 2 diabetes mellitus with hyperglycemia (CMS/HCC) (HCC) Corneal epithelial basement membrane dystrophy Uncontrolled type 2 diabetes mellitus Review of Systems: General: Fever: Negative Night Sweats: Negative Eye: Blurry Vision:Negative Double Vision: Negative Ent: Headaches: Negative Sore throat: Negative Ear pain or drainage: Negative Allergy/Immunology: Hives: Negative Hematology/Lymphatic: Bleeding Problems: Negative Blood Clots: Negative Swollen Lymph Nodes: Negative Lungs: Cough: Negative SOB: Negative Cardiovascular: Chest Pain: Negative Palpitations:Negative GI: Nausea/Vomiting: Negative Abdominal Pain: Negative Change in Bowels: Negative : Dysuria: Negative Increase Urinary Frequency/Urgency: Negative Neuro: Seizures: Negative Confusion: Negative PAST MEDICAL HISTORY: Review of patient's family history indicates: Problem: Stroke Relation: Father Name: Age of Onset: (Not Specified) Problem: Obesity Relation: Mother Name: dementia Age of Onset: (Not Specified) Problem: Diabetes Relation: Mother Name: dementia Age of Onset: (Not Specified) Problem: High Blood Pressure Relation: Mother Name: dementia Age of Onset: (Not Specified) Problem: Heart disease Relation: Mother Name: dementia Age of Onset: (Not Specified) Problem: Stroke Relation: Paternal Grandfather Name: Age of Onset: (Not Specified) Problem: High Blood Pressure Relation: Father Name: Age of Onset: (Not Specified) Problem: Diabetes Relation: Father Name: Age of Onset: (Not Specified) Problem: Diabetes Relation: Paternal Grandfather Name: Age of Onset: (Not Specified) Problem: Heart attack Relation: Paternal Grandmother Name: Age of Onset: (Not Specified) Problem: Colon cancer Relation: Neg Hx Name: Age of Onset: (Not Specified) Problem: High Blood Pressure Relation: Brother Name: Age of Onset: (Not Specified) Problem: Cancer Relation: Father Name: Age of Onset: (Not Specified) Comment: bladder Problem: Obesity Relation: Father Name: Age of Onset: (Not Specified) Social History Socioeconomic History Marital status: Single Spouse name: Not on file Number of children: Not on file Years of education: Not on file Highest education level: Not on file Occupational History Not on file Tobacco Use Smoking status: Never Smokeless tobacco: Never Substance and Sexual Activity Alcohol use: No Drug use: No Sexual activity: Not on file Other Topics Concerns: Not on file Social History Narrative Not on file Social Determinants of Health Financial Resource Strain: Not on file Food Insecurity: Not on file Transportation Needs: Not on file Physical Activity: Not on file Stress: Not on file Social Connections: Not on file Intimate Partner Violence: Not on file Housing Stability: Not on file Past Surgical History: No date: CATARACT EXTRACTION; Bilateral 01/29/2018: CHOLECYSTECTOMY Comment: w/ LRYGB and Umbilical Hernia repair - [facility] 09/03/2020: DILATION AND CURETTAGE OF UTERUS Comment: with hysteroscopy 01/29/2018: GASTRIC BYPASS Comment: LRYGB w/ Lap Aggie and Umbilical Hernia repair, [facility] No date: GASTRIC BYPASS 09/30/2020: HYSTERECTOMY Comment: TLH/BSO; Dr. Cuauhtemoc Stubbs : MOUTH SURGERY Comment: gum removal to expose wisdom teeth 2000: THYROGLOSSAL DUCT EXCISION Comment: [facility]- Dr. Vin Keating No date: THYROIDECTOMY 01/29/2018: UMBILICAL HERNIA REPAIR Comment: w/ LRYGB and Lap Aggie - [facility] 03/20/2017: UPPER GASTROINTESTINAL ENDOSCOPY Comment: pre op, [facility] 2012: WISDOM TOOTH EXTRACTION Comment: [facility] Past Medical History: No date: Anxiety No date: Asthma No date: Deficiency of nutrient elements No date: Depression No date: Dry eye No date: Fatigue No date: Gastritis No date: GERD (gastroesophageal reflux disease) No date: Glaucoma No date: Glaucoma No date: Hyperlipidemia No date: Hypertension No date: Hypothyroid No date: Hypothyroidism No date: Incontinence No date: Intestinal malabsorption No date: Lymph edema No date: Morbid obesity (HCC) No date: Obstructive sleep apnea No date: PMB (postmenopausal bleeding) No date: Polycystic ovarian syndrome No date: Psoriasis No date: SOB (shortness of breath) on exertion No date: Thyroglossal duct cyst No date: Type 2 diabetes mellitus without complication ([facility]) ([facility]) No date: Urinary tract infection No date: Uterine cancer ([facility]) ([facility]) 05/10/2017: Vitamin D deficiency 06/21/2018: Zinc deficiency Current Outpatient Medications on File Prior to Encounter: albuterol 108 (90 Base) MCG/ACT inhaler, Inhale 2 puffs every 6 hours as needed., Disp: , Rfl: atorvastatin (Lipitor) 40 MG tablet, Take by mouth daily., Disp: , Rfl: BD Insulin Syringe U/F 30G X 1/2 0.5 ML misc, 2 times daily with insulin, Disp: 200 each, Rfl: 3 brimonidine (Alphagan P) 0.1 % ophthalmic solution, 1 drop in the morning and 1 drop at noon and 1 drop in the evening., Disp: , Rfl: carvedilol (Coreg) 6.25 MG tablet, Take 12.5 mg by mouth in the morning and 12.5 mg in the evening., Disp: , Rfl: cholecalciferol (Vitamin D-3) 50 MCG (2000 UT) tablet, Take 2,000 Units by mouth in the morning., Disp: , Rfl: citalopram (CeleXA) 20 MG tablet, Take by mouth Every 24 hours., Disp: , Rfl: Continuous Blood Gluc Sensor (FreeStyle Satya 2 Sensor) [facility], 1 Device every 14 (fourteen) days., Disp: 9 each, Rfl: 3 EPINEPHRINE HCL, ANAPHYLAXIS, IM, Inject into the shoulder, thigh, or buttocks., Disp: , Rfl: fluconazole (Diflucan) 150 MG tablet, TAKE 1 TABLET BY MOUTH 1 TIME FOR 1 DAY, Disp: , Rfl: fluconazole (Diflucan) 200 MG tablet, Take 1 tablet by mouth daily. PRN yeast infections, Disp: , Rfl: FREESTYLE LITE test strip, USE DIRECTED FOUR TIMES DAILY, Disp: , Rfl: glucose 4 g chewable tablet, Chew 16 g if needed for low blood sugar., Disp: , Rfl: HumuLIN R 500 UNIT/ML CONCENTRATED injection, 8 units with breakfast 5 units with dinner per orange tip insulin syringe, Disp: 60 mL, Rfl: 3 hydrocortisone (West-Dmitri) 0.2 % cream, Apply topically every 12 hours., Disp: , Rfl: levothyroxine (Synthroid, Levoxyl) 175 MCG tablet, Take 1 tablet (175 mcg) by mouth every morning (before breakfast)., Disp: 90 tablet, Rfl: 3 mirabegron ER (Myrbetriq) 50 MG 24 hr tablet, Every 24 hours. PRN, Disp: , Rfl: multivitamin, Pediatric, (Flintstones Gummies) chewable tablet, Chew 1 tablet., Disp: , Rfl: olmesartan (BENIcar) 40 MG tablet, Take 40 mg by mouth., Disp: , Rfl: PROTEIN PO, Take by mouth., Disp: , Rfl: timolol (Timoptic) 0.5 % ophthalmic solution, 1 drop in the morning and 1 drop in the evening., Disp: , Rfl: triamcinolone (Kenalog) 0.1 % cream, Apply to affected area 1-2 times daily as needed. Avoid face and groin., Disp: 30 g, Rfl: 0 Current Facility-Administered Medications on File Prior to Encounter: triamcinolone (Kenalog) 0.1 % cream, , Topical, Once, Jeromeniurka Perdomo MD Allergies as of 02/14/2023 - Reviewed 02/14/2023 -- Bimatoprost -- Other -- noted 05/06/2018 -- Doxycycline -- Hives -- noted 05/24/2022 -- Erythromycin -- Hives -- noted 05/24/2022 -- Levaquin [levofloxacin] -- Hives -- noted 05/24/2022 -- Macrobid [nitrofurantoin] -- Hives -- noted 05/24/2022 -- Penicillins -- Hives -- noted 05/24/2022 -- Levofloxacin in d5w -- Swelling -- noted 03/01/2015 -- Macrolides and ketolides -- Hives -- noted 02/27/2004 -- Molds & smuts -- Itching -- noted 03/24/2015 -- Nitrofurantoin monohyd macro -- Itching -- noted 12/22/2014 -- Other -- Itching -- noted 02/11/2013 PHYSICAL EXAM: Blood pressure (!) 181/86, pulse 66, temperature 36.7 C (98.1 F), resp. rate 20. Gen: A and O x 3, NAD, well nourished Eyes: Sclera non icterus, PERRL Head: Normocephalic, non-tender Neck: Supple, no adenopathy, thyroid non tender and no masses,no carotid bruits Lungs: CTA, symmetrical Chest: RRR, no murmurs Abd: Soft, NT, ND, no HSM, no hernias, no bruits Ext: No edema, no cyanosis Psych: reveals appropriate mood, memory and judgment, Neuro: Reveals no gross motor or sensory deficits, Msk: 5/5 strength all 4 extremities, no joint tenderness Vascular: Pulses Fem + Pop DP/PT Assessment: BP (!) 181/86 (BP Location: Right arm) Pulse 66 Temp 36.7 C (98.1 F) Resp 20 Wound Reference Date is when first assessed. Measurements shown are from today's visit. Wound BP (!) 181/86 (BP Location: Right arm) Pulse 66 Temp 36.7 C (98.1 F) Resp 20 Wound : lymphedema controlled. No ulcers. Mild erythema/induration c/w dermatitis from heat at upper edge of wrap, R>L. IMPRESSION:Lymphedema (primary encounter diagnosis) Plan: Plan for wound - Treatment: see orders Discussed appropriate home care of this wound. Wound redressed. Patient instructions were given. Follow up: as planned documented in this encounter [facility] 02-14-2023 Hospital Discharge instructions Moses Oliveira - 02/14/2023 11:00 AM EDT Nurse visit in [address] Perdomo in 4 weeks Elevate legs to the level of the heart or above for 30 minutes daily and/or when sitting, a frequency of: as much as possible Unna Boot: Do not remove Unna Boot. Keep dry. If pain or swelling or discoloration of toes noted, elevate legs above level of heart for 1 hour. If no relief, call the center. If unable to reach center, remove boot and keep leg elevated until contact with center can be made. Multilayer Compression Therapy - 4 layers: Do not get legs with compression wrap wet. If wraps seem too tight, elevate legs above level of heart for one hour. If no relief, call the wound center. documented in this encounter [facility] 01-31-2023 History of Present illness Narrative [facility] Nurse Visit Note Dameon Potter AGE: 68 y.o. GENDER: female : 1955 EPISODE DATE: 01/31/23 Arrival Information: Patient Arrived: Wheelchair Transfer Assistance: None Accompanied by: self Any changes in medical history since last visit: No Added or removed any Medications: No Any new allergies: No Any falls since last visit: No Any hospitalizations or surgeries since last visit: No Assessment: There were no vitals filed for this visit. Treatment: Wound: Bilateral Profore wrap change Patient was seen for a nurse visit to have Profore changed. Dressing was removed. Wound was cleansed with soap and water, Bactroban and gauze was applied to 2nd toe. Unna Boot and Profore compression wrap was applied bilaterally per provider's orders. Discharge Information: Patient was discharged in stable condition. Ambulatory Status: Walker Discharge Destination: home Transportation: Private Auto Accompanied by: patient Schedule Follow up Appointment: yes No orders of the defined types were placed in this encounter. documented in this encounter [facility] 01-31-2023 Miscellaneous Notes Encounter addended by: Mackenzie Avitia RN on: 01/31/2023 4:10 PM Actions taken: Episode edited documented in this encounter [facility] 01-31-2023 Note Encounter addended b y: Mackenzie Avitia RN on: 01/31/2023 4:10 PM Actions taken: Episode edited [facility] 01-31-2023 Note Encounter addended b y: Mackenzie Avitia RN on: 01/31/2023 4:10 PM Actions taken: Episode edited [facility] 01-31-2023 Note Encounter addended b y: Mackenzie Avitia RN on: 01/31/2023 4:10 PM Actions taken: Episode edited [facility] 01-19-2023 History of Present illness Narrative Images from the original note were not included. [facility] [address] [facility] [address] Dept: [phone] Dept Loc: [phone] Visit type: Established patient Reason for Visit: Diabetes, Follow-up, and Hyperglycemia Assessment and Plan 1. Type 2 diabetes mellitus with hyperglycemia, with long-term current use of insulin ([facility]) ([facility]) - AMB POC HEMOGLOBIN A1C 2. 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 without macular edema, with long-term current use of insulin ([facility]) 3. Primary hypertension 4. Hyperlipidemia associated with type 2 diabetes mellitus ([facility]) 5. Class 3 severe obesity due to excess calories with serious comorbidity and body mass index (BMI) of 45.0 to 49.9 in adult ([facility]) 6. Acquired hypothyroidism 7. Insulin resistance Diabetes is not stable A1C is Lab Results Component Value Date HGBA1C 10.2 (A) 01/19/2023 Goal A1C = 6.5-7.0. Glucose goal range: 100-150 Insulin is necessary for ongoing mgmt. Patient will make the following changes to their antihyperglycemic regimen: U500 INSULIN - with orange cap syrings pulling up to 8 with 1st meal and 5 with second meal Initiate satya through DME (total) scripts printed and sent- needs to have DME for satya teaching and assistance with set up Recommend FSBS to occur 4 times daily, be recorded, and send to office in 2 weeks for review. Type 2 diabetes mellitus with hyperglycemia, with long-term current use of insulin - not controlled See above 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 without macular edema, with long-term current use of insulin -controlled- continue to follow [facility] hospital Dr Acevedo Continue to work on blood sugar control Primary hypertension controlled Blood sugar 128/68 at today's visit, Continue Coreg at new dose 12.5 for primary care just a day or 2 ago Continue Benicar 40 mg daily We will recheck BMP and urine microalbumin creatinine level soon Hyperlipidemia associated with type 2 diabetes mellitus-controlled Reviewed labs from 10/06/2022- T Chol 141, HDL 46, trig 150, LDL 72 Continue Lipitor 40 mg p.o. daily Class 3 severe obesity due to excess calories with serious comorbidity and body mass index (BMI) of 45.0 to 49.9 in adult - -Pt was counseled that diet and exercise are the foundation of DM treatment. If these 2 areas are not optimized then the pt will likely require more medications or higher doses to achieve control. Pt was asked to limit CHO consumption at each meal. Pt was advised to perform regular regimented brisk aerobic activity (ie walking, biking, swimming, etc) 30 min/d, 5d/wk (total of 150min weekly). Acquired hypothyroidism TSH T4, free AMB POC HEMOGLOBIN A1C TSH within normal limits as of 03/2021. Continue LT4 175 mcg daily and recheck labs today as she did not obtain as ordered Insulin resistance- continue U500 Discussed A1C and BG goals Encouraged lifestyle modifications of diet and exercise Encouraged optimal foot care- follow with podiatry if needed Encouraged following with ophthalmology Patient counseled on the importance of taking medication as prescribed Patient counseled on the effects of uncontrolled DM on other organ systems Patient counseled on risk factors assoicated with diabetes Patient counseled on detection and treatment of hypoglycemia Patient instructed to call office if BG >250 or <70 consistently Pt counseled about these recommendations. Pt voiced understanding. These recommendations made based on interpretation of available data (which may include FSBS, A1C, venous sampling, or data from pt recall). I reviewed: laboratory results reviewed: Yes radiographic reports reviewed: No I reviewed the radiographic images personally at the time of today's visit: No Pt was advised of the results. Records from outside facility/PCP office to be requested: No Scripts sent to pharmacy of pt choice: Yes No follow-ups on file. 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 Alcantara [facility]: 04/06/2021 Last office visit: 07/07/2022 Gastric bypass 2018 DM Onset: 2000 Type of DM: 2 Complications: Cardiovascular -- Yes htn, hlp Statin Use -- Yes LastDEE/Retina Eval: October 2022 Dr Clay, has follow up in March Retinopathy -- Yes Nephropathy -- Yes EDMAR/ARB Use -- Yes Polyneuropathy -- Yes Foot Exam: [facility] q2 WEEKS- for wraps- as long as wrapped they stay healed Obesity -- Yes Other -- No Personal history of pancreatitis-- No History of alcohol consumption--No Family history of thyroid cancer-- No Personal history of Urinary tract infections -- No Today's complaints include: Has not started the lantus and tsering Has been taking u500 8 units with breakfast 5 units with breakfast per orang cap syringe Insurance states that tsering is not covered 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 Pt c/o sxs at today's visit: no Pt c/o sxs of hyperglycemia at today's visit: no Pt c/o SEs from Medications at today's visit: no Pt voices concerns about cost of medications at today's visit: no Hyperglycemia present: Yes Hypoglycemia present: No Blood sugar monitoring device used: glucometer Frequency of BGL checks 1-2 times daily Checking in the morning, see 180s If checking the 2nd time it is right after her 2nd meal it is higher Meter present:No Log present: No Reviewed w/ pt: No Scanned into Media: No Current DM Medications: Humulin u-500 - 7 units daily Taking Medications w/o Missed Doses: No Following Diet for DM: No 2 meals per day - Lunch and dinner Misses breakfast Graze throughout the day Diet drinks or water Following Exercise Regimen: No WALKS WITH WALKER Previously Used DM Meds: Yes Basaglar - Never started Did not qualify for patient assistance Metformin 500 mg 1 tablet BID (Not taking GI Side effects) Trulicity - Never started Did not qualify for patient assistance Review of Systems All other systems reviewed and are negative. An entire ROS was performed at the time of this encounter. Unless noted above in the HPI, the ROS is negative. Allergies Allergen Reactions Bimatoprost Other Blurred vision Doxycycline Hives Erythromycin Hives Levaquin [Levofloxacin] Hives Macrobid [Nitrofurantoin] Hives Penicillins Hives Levofloxacin In D5w Swelling oral Macrolides And Ketolides Hives 1980 Molds & Smuts Itching Mold allergy Nitrofurantoin Monohyd Macro Itching Other Itching Outpatient Medications Prior to Visit Medication Sig Dispense Refill albuterol 108 (90 Base) MCG/ACT inhaler Inhale 2 puffs every 6 hours as needed. atorvastatin (Lipitor) 40 MG tablet Take by mouth daily. BD Insulin Syringe U/F 30G X 1/2 0.5 ML misc brimonidine (Alphagan P) 0.1 % ophthalmic solution 1 drop in the morning and 1 drop at noon and 1 drop in the evening. carvedilol (Coreg) 6.25 MG tablet Take 12.5 mg by mouth in the morning and 12.5 mg in the evening. cholecalciferol (Vitamin D-3) 50 MCG (2000 UT) tablet Take 2,000 Units by mouth in the morning. citalopram (CeleXA) 20 MG tablet Take by mouth Every 24 hours. Continuous Blood Gluc Sensor (FreeStyle Satya 2 Sensor) misc 1 Device every 14 (fourteen) days. 9 each 3 EPINEPHRINE HCL, ANAPHYLAXIS, IM Inject into the shoulder, thigh, or buttocks. fluconazole (Diflucan) 150 MG tablet TAKE 1 TABLET BY MOUTH 1 TIME FOR 1 DAY fluconazole (Diflucan) 200 MG tablet Take 1 tablet by mouth daily. PRN yeast infections FREESTYLE LITE test strip USE DIRECTED FOUR TIMES DAILY glucose 4 g chewable tablet Chew 16 g if needed for low blood sugar. HumuLIN R 500 UNIT/ML CONCENTRATED injection 8 units with breakfast 5 units with dinner hydrocortisone (West-Dmitri) 0.2 % cream Apply topically every 12 hours. levothyroxine (Synthroid, Levoxyl) 175 MCG tablet Take 1 tablet (175 mcg) by mouth every morning (before breakfast). 90 tablet 3 mirabegron ER (Myrbetriq) 50 MG 24 hr tablet Every 24 hours. PRN multivitamin, Pediatric, (Flintstones Gummies) chewable tablet Chew 1 tablet. olmesartan (BENIcar) 40 MG tablet Take 40 mg by mouth. PROTEIN PO Take by mouth. timolol (Timoptic) 0.5 % ophthalmic solution 1 drop in the morning and 1 drop in the evening. triamcinolone (Kenalog) 0.1 % cream Apply to affected area 1-2 times daily as needed. Avoid face and groin. 30 g 0 pen needle 31G x 6 mm [facility] Use as instructed 100 each 12 brimonidine (Alphagan P) 0.1 % ophthalmic solution every 8 hours. insulin glargine (Lantus) 100 UNIT/ML injection Inject 25 Units under the skin Nightly. (Patient not taking: Reported on 01/19/2023) 30 mL 3 metFORMIN (Glucophage) 500 MG tablet Take 1 tablet (500 mg) by mouth in the morning and 1 tablet (500 mg) in the evening. Take with meals. 360 tablet 3 Semaglutide,0.25 or 0.5MG/DOS, 2 MG/3ML solution pen-injector Inject 0.25-0.5 mg under the skin 1 (one) time per week. 0.25 mg weeklyx 4 weeks then 0.5 mg weekly (Patient not taking: Reported on 01/19/2023) 9 mL 3 valsartan (Diovan) 320 MG tablet Facility-Administered Medications Prior to Visit Medication Dose Route Frequency Provider Last Rate Last Admin triamcinolone (Kenalog) 0.1 % cream Topical Once Jerome Perdomo MD Past Medical History: Diagnosis Date Anxiety Asthma Deficiency of nutrient elements Depression Dry eye Fatigue Gastritis GERD (gastroesophageal reflux disease) Glaucoma Glaucoma Hyperlipidemia Hypertension Hypothyroid Hypothyroidism Incontinence Intestinal malabsorption Lymph edema Morbid obesity (HCC) Obstructive sleep apnea PMB (postmenopausal bleeding) Polycystic ovarian syndrome Psoriasis SOB (shortness of breath) on exertion Thyroglossal duct cyst Type 2 diabetes mellitus without complication (CMS/HCC) (HCC) Urinary tract infection Uterine cancer (CMS/HCC) (HCC) Vitamin D deficiency 05/10/2017 Zinc deficiency 06/21/2018 Social History Tobacco Use Smoking status: Never Smokeless tobacco: Never Substance Use Topics Alcohol use: No Past Surgical History: Procedure Laterality Date CATARACT EXTRACTION Bilateral CHOLECYSTECTOMY 01/29/2018 w/ LRYGB and Umbilical Hernia repair - [facility] DILATION AND CURETTAGE OF UTERUS 09/03/2020 with hysteroscopy GASTRIC BYPASS 01/29/2018 LRYGB w/ Lap Aggie and Umbilical Hernia repair, [facility] GASTRIC BYPASS HYSTERECTOMY 09/30/2020 [facility]/BSO; Dr. Cuauhtemoc Stubbs MOUTH SURGERY gum removal to expose wisdom teeth THYROGLOSSAL DUCT EXCISION 2000 [facility]- Dr. Vin Keating THYROIDECTOMY UMBILICAL HERNIA REPAIR 01/29/2018 w/ LRYGB and Lap Aggie - [facility] UPPER GASTROINTESTINAL ENDOSCOPY 03/20/2017 pre op, [facility] WISDOM TOOTH EXTRACTION 2013 [facility] Family History Problem Relation Name Age of Onset Stroke Father Obesity Mother dementia Diabetes Mother dementia High Blood Pressure Mother dementia Heart disease Mother dementia Stroke Paternal Grandfather High Blood Pressure Father Diabetes Father Diabetes Paternal Grandfather Heart attack Paternal Grandmother Colon cancer Neg Hx High Blood Pressure Brother Cancer Father bladder Obesity Father Objective BP 128/88 (BP Location: Right arm, Patient Position: Sitting, BP Cuff Size: Large adult) Pulse 64 Ht 5' 6 (1.676 m) Wt 284 lb 4.8 oz (129 kg) BMI 45.89 kg/m Physical Exam Constitutional: General: She is not in acute distress. Appearance: Normal appearance. She is obese. She is not ill-appearing, toxic-appearing or diaphoretic. HENT: Head: Normocephalic and atraumatic. Right Ear: External ear normal. Left Ear: External ear normal. Nose: Nose normal. Mouth/Throat: Mouth: Mucous membranes are moist. Eyes: Conjunctiva/sclera: Conjunctivae normal. Pulmonary: Effort: Pulmonary effort is normal. No respiratory distress. Musculoskeletal: General: No swelling. Normal range of motion. Skin: General: Skin is warm and dry. Neurological: General: No focal deficit present. Mental Status: She is alert. Psychiatric: Mood and Affect: Mood normal. Behavior: Behavior normal. Data Reviewed and Summarized Labs: No components found for: LABA1C No components found for: EAG Lab Results Component Value Date NA 135 04/06/2021 K 4.5 04/06/2021 CL 103 04/06/2021 CO2 23 10/06/2022 BUN 17 10/06/2022 CREATININE 0.78 10/06/2022 GLUCOSE 306 (H) 10/06/2022 CALCIUM 8.9 10/06/2022 Lab Results Component Value Date CHLPL 151 06/22/2021 CHLPL 151 06/22/2021 CHLPL 126 07/03/2019 CHOL 149 04/06/2021 CHOL 126 03/04/2020 CHOL 143 07/31/2019 Lab Results Component Value Date TRIG 414 06/22/2021 TRIG 167 (A) 04/06/2021 TRIG 111 03/04/2020 Lab Results Component Value Date HDL 50 06/22/2021 HDL 50 06/22/2021 HDL 42 04/06/2021 Lab Results Component Value Date LDLCALC 77 06/22/2021 LDLCALC 68 07/03/2019 No results found for: VLDL Lab Results Component Value Date CHOLHDLRATIO 3.0 06/22/2021 CHOLHDLRATIO 4 04/06/2021 CHOLHDLRATIO 3 03/04/2020 No results found for: [id number] Imaging/Testing: AMAURY Knight CNP Portions of the information within this encounter were entered using an electronic dictation system. Best attempts were made to edit/proofread the information prior to note completion. Despite the review of information, some errors may remain. If there are questions related to the information contained within the note please contact the signing physician directly. documented in this encounter [facility] 01-17-2023 History of Present illness Narrative INITIAL VISIT - WOUND CARE Dameon Potter AGE: 68 y.o. GENDER: female : 1955 TODAY'S DATE: 01/17/2023 HISTORY OF PRESENT ILLNESS: Dameon Potter is a 68 y.o. female who presents today in F/U. Lymphedema well-controlled with wraps. Still does not want pump. Wound Location : right and left leg The patients pain is Problem list: Patient Active Problem List: Endometrial cancer (CMS/HCC) (HCC) Obesity with body mass index greater than 30 OAB (overactive bladder) Uncontrolled type 2 diabetes mellitus with hyperglycemia, with long-term current use of insulin (HCC) Deficiency of nutrient elements Zinc deficiency Lymphedema Hepatic steatosis Calculus of gallbladder with chronic cholecystitis without obstruction Vitamin D deficiency Intestinal malabsorption Morbid obesity (HCC) Hypothyroidism Essential hypertension, benign Mixed hyperlipidemia Fatigue Obstructive sleep apnea SOB (shortness of breath) on exertion Gastritis without bleeding PND (post-nasal drip) Gastroesophageal reflux disease without esophagitis Asthma without status asthmaticus Candidal vulvovaginitis Cardiomegaly Cortical cataract of both eyes Diabetic retinopathy associated with type 2 diabetes mellitus (HCC) Diastolic dysfunction Dry eye syndrome of bilateral lacrimal glands Malignant neoplasm of uterus (HCC) Malnutrition of mild degree (Bianchi: 75% to less than 90% of standard weight) (HCC) Moderate recurrent major depression (HCC) Nuclear sclerotic cataract, bilateral Polycystic ovaries Posterior subcapsular age-related cataract of left eye Postmenopausal bleeding Primary open angle glaucoma of both eyes, mild stage Refractive error Chronic sinusitis Thyroglossal duct cyst Type 2 diabetes mellitus with hyperglycemia (CMS/HCC) (HCC) Corneal epithelial basement membrane dystrophy Uncontrolled type 2 diabetes mellitus Review of Systems: General: Fever: Negative Night Sweats: Negative Eye: Blurry Vision:Negative Double Vision: Negative Ent: Headaches: Negative Sore throat: Negative Ear pain or drainage: Negative Allergy/Immunology: Hives: Negative Hematology/Lymphatic: Bleeding Problems: Negative Blood Clots: Negative Swollen Lymph Nodes: Negative Lungs: Cough: Negative SOB: Negative Cardiovascular: Chest Pain: Negative Palpitations:Negative GI: Nausea/Vomiting: Negative Abdominal Pain: Negative Change in Bowels: Negative : Dysuria: Negative Increase Urinary Frequency/Urgency: Negative Neuro: Seizures: Negative Confusion: Negative PAST MEDICAL HISTORY: Review of patient's family history indicates: Problem: Stroke Relation: Father Name: Age of Onset: (Not Specified) Problem: Obesity Relation: Mother Name: dementia Age of Onset: (Not Specified) Problem: Diabetes Relation: Mother Name: dementia Age of Onset: (Not Specified) Problem: High Blood Pressure Relation: Mother Name: dementia Age of Onset: (Not Specified) Problem: Heart disease Relation: Mother Name: dementia Age of Onset: (Not Specified) Problem: Stroke Relation: Paternal Grandfather Name: Age of Onset: (Not Specified) Problem: High Blood Pressure Relation: Father Name: Age of Onset: (Not Specified) Problem: Diabetes Relation: Father Name: Age of Onset: (Not Specified) Problem: Diabetes Relation: Paternal Grandfather Name: Age of Onset: (Not Specified) Problem: Heart attack Relation: Paternal Grandmother Name: Age of Onset: (Not Specified) Problem: Colon cancer Relation: Neg Hx Name: Age of Onset: (Not Specified) Problem: High Blood Pressure Relation: Brother Name: Age of Onset: (Not Specified) Problem: Cancer Relation: Father Name: Age of Onset: (Not Specified) Comment: bladder Problem: Obesity Relation: Father Name: Age of Onset: (Not Specified) Social History Socioeconomic History Marital status: Single Spouse name: Not on file Number of children: Not on file Years of education: Not on file Highest education level: Not on file Occupational History Not on file Tobacco Use Smoking status: Never Smokeless tobacco: Never Substance and Sexual Activity Alcohol use: No Drug use: No Sexual activity: Not on file Other Topics Concerns: Not on file Social History Narrative Not on file Social Determinants of Health Financial Resource Strain: Not on file Food Insecurity: Not on file Transportation Needs: Not on file Physical Activity: Not on file Stress: Not on file Social Connections: Not on file Intimate Partner Violence: Not on file Housing Stability: Not on file Past Surgical History: No date: CATARACT EXTRACTION; Bilateral 01/29/2018: CHOLECYSTECTOMY Comment: w/ LRYGB and Umbilical Hernia repair - [facility] 09/03/2020: DILATION AND CURETTAGE OF UTERUS Comment: with hysteroscopy 01/29/2018: GASTRIC BYPASS Comment: LRYGB w/ Lap Aggie and Umbilical Hernia repair, [facility] No date: GASTRIC BYPASS 09/30/2020: HYSTERECTOMY Comment: [facility]/BSO; Dr. Cuauhtemoc Stubbs s: MOUTH SURGERY Comment: gum removal to expose wisdom teeth 2000: THYROGLOSSAL DUCT EXCISION Comment: [facility]- Dr. Vin Keating No date: THYROIDECTOMY 01/29/2018: UMBILICAL HERNIA REPAIR Comment: w/ LRYGB and Lap Aggie - [facility] 03/20/2017: UPPER GASTROINTESTINAL ENDOSCOPY Comment: pre op, Deepali 2012: WISDOM TOOTH EXTRACTION Comment: [facility] Past Medical History: No date: Anxiety No date: Asthma No date: Deficiency of nutrient elements No date: Depression No date: Dry eye No date: Fatigue No date: Gastritis No date: GERD (gastroesophageal reflux disease) No date: Glaucoma No date: Glaucoma No date: Hyperlipidemia No date: Hypertension No date: Hypothyroid No date: Hypothyroidism No date: Incontinence No date: Intestinal malabsorption No date: Lymph edema No date: Morbid obesity (HCC) No date: Obstructive sleep apnea No date: PMB (postmenopausal bleeding) No date: Polycystic ovarian syndrome No date: Psoriasis No date: SOB (shortness of breath) on exertion No date: Thyroglossal duct cyst No date: Type 2 diabetes mellitus without complication ([facility]) ([facility]) No date: Urinary tract infection No date: Uterine cancer ([facility]) ([facility]) 05/10/2017: Vitamin D deficiency 06/21/2018: Zinc deficiency Current Outpatient Medications on File Prior to Encounter: albuterol 108 (90 Base) MCG/ACT inhaler, Inhale 2 puffs every 6 hours as needed., Disp: , Rfl: atorvastatin (Lipitor) 40 MG tablet, Take by mouth daily., Disp: , Rfl: BD Insulin Syringe U/F 30G X 1/2 0.5 ML misc, , Disp: , Rfl: carvedilol (Coreg) 6.25 MG tablet, Take 12.5 mg by mouth in the morning and 12.5 mg in the evening., Disp: , Rfl: cholecalciferol (Vitamin D-3) 50 MCG (2000 UT) tablet, Take 2,000 Units by mouth in the morning., Disp: , Rfl: citalopram (CeleXA) 20 MG tablet, Take by mouth Every 24 hours., Disp: , Rfl: Continuous Blood Gluc Sensor (FreeStyle Satya 2 Sensor) misc, 1 Device every 14 (fourteen) days., Disp: 9 each, Rfl: 3 EPINEPHRINE HCL, ANAPHYLAXIS, IM, Inject into the shoulder, thigh, or buttocks., Disp: , Rfl: fluconazole (Diflucan) 150 MG tablet, TAKE 1 TABLET BY MOUTH 1 TIME FOR 1 DAY, Disp: , Rfl: fluconazole (Diflucan) 200 MG tablet, Take 1 tablet by mouth daily. PRN yeast infections, Disp: , Rfl: FREESTYLE LITE test strip, USE DIRECTED FOUR TIMES DAILY, Disp: , Rfl: glucose 4 g chewable tablet, Chew 16 g if needed for low blood sugar., Disp: , Rfl: hydrocortisone (West-Dmitri) 0.2 % cream, Apply topically every 12 hours., Disp: , Rfl: insulin glargine (Lantus) 100 UNIT/ML injection, Inject 25 Units under the skin Nightly., Disp: 30 mL, Rfl: 3 levothyroxine (Synthroid, Levoxyl) 175 MCG tablet, Take 1 tablet (175 mcg) by mouth every morning (before breakfast)., Disp: 90 tablet, Rfl: 3 metFORMIN (Glucophage) 500 MG tablet, Take 1 tablet (500 mg) by mouth in the morning and 1 tablet (500 mg) in the evening. Take with meals., Disp: 360 tablet, Rfl: 3 mirabegron ER (Myrbetriq) 50 MG 24 hr tablet, Every 24 hours. PRN, Disp: , Rfl: multivitamin, Pediatric, (Flintstones Gummies) chewable tablet, Chew 1 tablet., Disp: , Rfl: olmesartan (BENIcar) 40 MG tablet, Take 40 mg by mouth., Disp: , Rfl: pen needle 31G x 6 mm misc, Use as instructed, Disp: 100 each, Rfl: 12 PROTEIN PO, Take by mouth., Disp: , Rfl: Semaglutide,0.25 or 0.5MG/DOS, 2 MG/3ML solution pen-injector, Inject 0.25-0.5 mg under the skin 1 (one) time per week. 0.25 mg weeklyx 4 weeks then 0.5 mg weekly, Disp: 9 mL, Rfl: 3 valsartan (Diovan) 320 MG tablet, , Disp: , Rfl: Current Facility-Administered Medications on File Prior to Encounter: triamcinolone (Kenalog) 0.1 % cream, , Topical, Once, Jeromeniurka Perdomo MD Allergies as of 01/17/2023 - Reviewed 01/17/2023 -- Bimatoprost -- Other -- noted 05/06/2018 -- Doxycycline -- Hives -- noted 05/24/2022 -- Erythromycin -- Hives -- noted 05/24/2022 -- Levaquin [levofloxacin] -- Hives -- noted 05/24/2022 -- Macrobid [nitrofurantoin] -- Hives -- noted 05/24/2022 -- Penicillins -- Hives -- noted 05/24/2022 -- Levofloxacin in d5w -- Swelling -- noted 03/01/2015 -- Macrolides and ketolides -- Hives -- noted 02/27/2004 -- Molds & smuts -- Itching -- noted 03/24/2015 -- Nitrofurantoin monohyd macro -- Itching -- noted 12/22/2014 -- Other -- Itching -- noted 02/11/2013 PHYSICAL EXAM: Blood pressure (!) 152/76, pulse 76, temperature 36.1 C (97 F). Gen: A and O x 3, NAD, well nourished Eyes: Sclera non icterus, PERRL Head: Normocephalic, non-tender Neck: Supple, no adenopathy, thyroid non tender and no masses,no carotid bruits Lungs: CTA, symmetrical Chest: RRR, no murmurs Abd: Soft, NT, ND, no HSM, no hernias, no bruits Ext: No edema, no cyanosis Psych: reveals appropriate mood, memory and judgment, Neuro: Reveals no gross motor or sensory deficits, Msk: 5/5 strength all 4 extremities, no joint tenderness; mild lymphedema Vascular: Pulses Fem + Pop DP/PT + Assessment: BP (!) 152/76 Pulse 76 Temp 36.1 C (97 F) Wound Reference Date is when first assessed. Measurements shown are from today's visit. Wound BP (!) 152/76 Pulse 76 Temp 36.1 C (97 F) Wound : see CAHUILLA IMPRESSION:Lymphedema (primary encounter diagnosis) Plan: Plan for wound - Treatment: see orders Discussed appropriate home care of this wound. Wound redressed. Patient instructions were given. Follow up: as per plan documented in this encounter [facility] 01-17-2023 Hospital Discharge instructions Zayda Bradford RN - 01/17/2023 11:00 AM EDT Nurse visit in [address] Perdomo in 4 weeks Elevate legs to the level of the heart or above for 30 minutes daily and/or when sitting, a frequency of: as much as possible Unna Boot: Do not remove Unna Boot. Keep dry. If pain or swelling or discoloration of toes noted, elevate legs above level of heart for 1 hour. If no relief, call the center. If unable to reach center, remove boot and keep leg elevated until contact with center can be made. Multilayer Compression Therapy - 4 layers: Do not get legs with compression wrap wet. If wraps seem too tight, elevate legs above level of heart for one hour. If no relief, call the wound center. documented in this encounter [facility] 01-03-2023 History of Present illness Narrative [facility] Nurse Visit Note Dameon Potter AGE: 68 y.o. GENDER: female : 1955 EPISODE DATE: 01/03/23 Arrival Information: Patient Arrived: Walker Transfer Assistance: None Accompanied by: self Any changes in medical history since last visit: No Added or removed any Medications: No Any new allergies: No Any falls since last visit: No Any hospitalizations or surgeries since last visit: No Assessment: Vitals: 01/03/23 1613 BP: (!) 187/90 Pulse: 90 Resp: 20 Temp: 36.3 C (97.4 F) Treatment: Wound: no open wounds Patient was seen for a nurse visit to have compression dressings changed. Dressing was removed. Legs cleansed with soap and water, 4 laye compression wrap was applied per provider's orders. Discharge Information: Patient was discharged in stable condition. Ambulatory Status: Walker Discharge Destination: home Transportation: Private Auto Accompanied by: patient Schedule Follow up Appointment: no No orders of the defined types were placed in this encounter. documented in this encounter [facility] 01-03-2023 History of Present illness Narrative [facility] Nurse Visit Note Dameon Potter AGE: 68 y.o. GENDER: female : 1955 EPISODE DATE: 01/03/23 Arrival Information: Patient Arrived: Walker Transfer Assistance: None Accompanied by: self Any changes in medical history since last visit: No Added or removed any Medications: No Any new allergies: No Any falls since last visit: No Any hospitalizations or surgeries since last visit: No Assessment: Vitals: 01/03/23 1155 BP: (!) 187/90 Resp: 20 Temp: 36.3 C (97.4 F) Treatment: Wound: no open wounds, lymphedema management Patient was seen for a nurse visit to have compression wraps changed. Dressing was removed. Legs were cleansed with soap, lotion applied, compression wrap was applied per provider's orders. Discharge Information: Patient was discharged in stable condition. Ambulatory Status: Walker Discharge Destination: home Transportation: Private Auto Accompanied by: patient Schedule Follow up Appointment: no No orders of the defined types were placed in this encounter. documented in this encounter [facility] 12-20-2022 History of Present illness Narrative INITIAL VISIT - WOUND CARE Dameon Potter AGE: 67 y.o. GENDER: female : 1955 TODAY'S DATE: 12/20/2022 HISTORY OF PRESENT ILLNESS: Dameon Potter is a 67 y.o. female who presents today in F/U. No acute issues. Lymhedema controlled with wraps. Wound Location : left, right, and leg The patients pain is Problem list: Patient Active Problem List: Endometrial cancer (CMS/HCC) (HCC) Obesity with body mass index greater than 30 OAB (overactive bladder) Uncontrolled type 2 diabetes mellitus with hyperglycemia, with long-term current use of insulin (HCC) Deficiency of nutrient elements Zinc deficiency Lymphedema Hepatic steatosis Calculus of gallbladder with chronic cholecystitis without obstruction Vitamin D deficiency Intestinal malabsorption Morbid obesity (HCC) Hypothyroidism Essential hypertension, benign Mixed hyperlipidemia Fatigue Obstructive sleep apnea SOB (shortness of breath) on exertion Gastritis without bleeding PND (post-nasal drip) Gastroesophageal reflux disease without esophagitis Asthma without status asthmaticus Candidal vulvovaginitis Cardiomegaly Cortical cataract of both eyes Diabetic retinopathy associated with type 2 diabetes mellitus (HCC) Diastolic dysfunction Dry eye syndrome of bilateral lacrimal glands Malignant neoplasm of uterus (HCC) Malnutrition of mild degree (Bianchi: 75% to less than 90% of standard weight) (HCC) Moderate recurrent major depression (HCC) Nuclear sclerotic cataract, bilateral Polycystic ovaries Posterior subcapsular age-related cataract of left eye Postmenopausal bleeding Primary open angle glaucoma of both eyes, mild stage Refractive error Chronic sinusitis Thyroglossal duct cyst Type 2 diabetes mellitus with hyperglycemia (CMS/HCC) (HCC) Corneal epithelial basement membrane dystrophy Uncontrolled type 2 diabetes mellitus Review of Systems: General: Fever: Negative Night Sweats: Negative Eye: Blurry Vision:Negative Double Vision: Negative Ent: Headaches: Negative Sore throat: Negative Ear pain or drainage: Negative Allergy/Immunology: Hives: Negative Hematology/Lymphatic: Bleeding Problems: Negative Blood Clots: Negative Swollen Lymph Nodes: Negative Lungs: Cough: Negative SOB: Negative Cardiovascular: Chest Pain: Negative Palpitations:Negative GI: Nausea/Vomiting: Negative Abdominal Pain: Negative Change in Bowels: Negative : Dysuria: Negative Increase Urinary Frequency/Urgency: Negative Neuro: Seizures: Negative Confusion: Negative PAST MEDICAL HISTORY: Review of patient's family history indicates: Social History Socioeconomic History Marital status: Single Spouse name: Not on file Number of children: Not on file Years of education: Not on file Highest education level: Not on file Occupational History Not on file Tobacco Use Smoking status: Never Smokeless tobacco: Never Substance and Sexual Activity Alcohol use: No Drug use: No Sexual activity: Not on file Other Topics Concerns: Not on file Social History Narrative Not on file Social Determinants of Health Financial Resource Strain: Not on file Food Insecurity: Not on file Transportation Needs: Not on file Physical Activity: Not on file Stress: Not on file Social Connections: Not on file Intimate Partner Violence: Not on file Housing Stability: Not on file Past Surgical History: No date: CATARACT EXTRACTION; Bilateral 01/29/2018: CHOLECYSTECTOMY Comment: w/ LRYGB and Umbilical Hernia repair - Zografakis 09/03/2020: DILATION AND CURETTAGE OF UTERUS Comment: with hysteroscopy 01/29/2018: GASTRIC BYPASS Comment: LRYGB w/ Lap Aggie and Umbilical Hernia repair, Zografakis No date: GASTRIC BYPASS 09/30/2020: HYSTERECTOMY Comment: TLH/BSO; Dr. Cuauhtemoc Stubbs : MOUTH SURGERY Comment: gum removal to expose wisdom teeth 2000: THYROGLOSSAL DUCT EXCISION Comment: [employer]- Dr. Vin Keating No date: THYROIDECTOMY 01/29/2018: UMBILICAL HERNIA REPAIR Comment: w/ LRYGB and Lap Aggie - Zografakis 03/20/2017: UPPER GASTROINTESTINAL ENDOSCOPY Comment: pre opDeepali 2012: WISDOM TOOTH EXTRACTION Comment: [facility] Past Medical History: No date: Anxiety No date: Asthma No date: Deficiency of nutrient elements No date: Depression No date: Dry eye No date: Fatigue No date: Gastritis No date: GERD (gastroesophageal reflux disease) No date: Glaucoma No date: Glaucoma No date: Hyperlipidemia No date: Hypertension No date: Hypothyroid No date: Hypothyroidism No date: Incontinence No date: Intestinal malabsorption No date: Lymph edema No date: Morbid obesity (HCC) No date: Obstructive sleep apnea No date: PMB (postmenopausal bleeding) No date: Polycystic ovarian syndrome No date: Psoriasis No date: SOB (shortness of breath) on exertion No date: Thyroglossal duct cyst No date: Type 2 diabetes mellitus without complication ([facility]) ([facility]) No date: Urinary tract infection No date: Uterine cancer ([facility]) ([facility]) 05/10/2017: Vitamin D deficiency 06/21/2018: Zinc deficiency Current Outpatient Medications on File Prior to Encounter: albuterol 108 (90 Base) MCG/ACT inhaler, Inhale 2 puffs every 6 hours as needed., Disp: , Rfl: atorvastatin (Lipitor) 40 MG tablet, Take by mouth daily., Disp: , Rfl: BD Insulin Syringe U/F 30G X 1/2 0.5 ML misc, , Disp: , Rfl: brimonidine (Alphagan P) 0.1 % ophthalmic solution, every 8 hours., Disp: , Rfl: carvedilol (Coreg) 6.25 MG tablet, Take 12.5 mg by mouth in the morning and 12.5 mg in the evening., Disp: , Rfl: cholecalciferol (Vitamin D-3) 50 MCG (2000 UT) tablet, Take 2,000 Units by mouth in the morning., Disp: , Rfl: citalopram (CeleXA) 20 MG tablet, Take by mouth Every 24 hours., Disp: , Rfl: Continuous Blood Gluc Sensor (FreeStyle Satya 2 Sensor) [facility], 1 Device every 14 (fourteen) days., Disp: 9 each, Rfl: 3 EPINEPHRINE HCL, ANAPHYLAXIS, IM, Inject into the shoulder, thigh, or buttocks., Disp: , Rfl: fluconazole (Diflucan) 150 MG tablet, TAKE 1 TABLET BY MOUTH 1 TIME FOR 1 DAY, Disp: , Rfl: fluconazole (Diflucan) 200 MG tablet, Take 1 tablet by mouth daily. PRN yeast infections, Disp: , Rfl: FREESTYLE LITE test strip, USE DIRECTED FOUR TIMES DAILY, Disp: , Rfl: glucose 4 g chewable tablet, Chew 16 g if needed for low blood sugar., Disp: , Rfl: hydrocortisone (West-Dmitri) 0.2 % cream, Apply topically every 12 hours., Disp: , Rfl: insulin glargine (Lantus) 100 UNIT/ML injection, Inject 25 Units under the skin Nightly., Disp: 30 mL, Rfl: 3 levothyroxine (Synthroid, Levoxyl) 175 MCG tablet, Take 1 tablet (175 mcg) by mouth every morning (before breakfast)., Disp: 90 tablet, Rfl: 3 metFORMIN (Glucophage) 500 MG tablet, Take 1 tablet (500 mg) by mouth in the morning and 1 tablet (500 mg) in the evening. Take with meals., Disp: 360 tablet, Rfl: 3 mirabegron ER (Myrbetriq) 50 MG 24 hr tablet, Every 24 hours. PRN, Disp: , Rfl: multivitamin, Pediatric, (Flintstones Gummies) chewable tablet, Chew 1 tablet., Disp: , Rfl: olmesartan (BENIcar) 40 MG tablet, Take 40 mg by mouth., Disp: , Rfl: pen needle 31G x 6 mm misc, Use as instructed, Disp: 100 each, Rfl: 12 PROTEIN PO, Take by mouth., Disp: , Rfl: Semaglutide,0.25 or 0.5MG/DOS, 2 MG/3ML solution pen-injector, Inject 0.25-0.5 mg under the skin 1 (one) time per week. 0.25 mg weeklyx 4 weeks then 0.5 mg weekly, Disp: 9 mL, Rfl: 3 valsartan (Diovan) 320 MG tablet, , Disp: , Rfl: Current Facility-Administered Medications on File Prior to Encounter: triamcinolone (Kenalog) 0.1 % cream, , Topical, Once, Jerome Perdomo MD Allergies as of 12/20/2022 - Reviewed 12/06/2022 -- Bimatoprost -- Other -- noted 05/06/2018 -- Doxycycline -- Hives -- noted 05/24/2022 -- Erythromycin -- Hives -- noted 05/24/2022 -- Levaquin [levofloxacin] -- Hives -- noted 05/24/2022 -- Macrobid [nitrofurantoin] -- Hives -- noted 05/24/2022 -- Penicillins -- Hives -- noted 05/24/2022 -- Levofloxacin in d5w -- Swelling -- noted 03/01/2015 -- Macrolides and ketolides -- Hives -- noted 02/27/2004 -- Molds & smuts -- Itching -- noted 03/24/2015 -- Nitrofurantoin monohyd macro -- Itching -- noted 12/22/2014 -- Other -- Itching -- noted 02/11/2013 PHYSICAL EXAM: There were no vitals taken for this visit. Gen: A and O x 3, NAD, well nourished Eyes: Sclera non icterus, PERRL Head: Normocephalic, non-tender Neck: Supple, no adenopathy, thyroid non tender and no masses,no carotid bruits Lungs: CTA, symmetrical Chest: RRR, no murmurs Abd: Soft, NT, ND, no HSM, no hernias, no bruits Ext: No edema, no cyanosis Psych: reveals appropriate mood, memory and judgment, Neuro: Reveals no gross motor or sensory deficits, Msk: 5/5 strength all 4 extremities, no joint tenderness; minimal lymphedema LE's Vascular: Pulses Fem + Pop + DP/PT + Assessment: There were no vitals taken for this visit. Wound Reference Date is when first assessed. Measurements shown are from today's visit. Wound There were no vitals taken for this visit. Wound : see above IMPRESSION:Lymphedema (primary encounter diagnosis) Plan: Plan for wound - Treatment: see orders Discussed appropriate home care of this wound. Wound redressed. Patient instructions were given. Follow up: as planned documented in this encounter [facility] 12-20-2022 Hospital Discharge instructions Moses WeinsteinDesirae Molino - 12/20/2022 11:00 AM EDT Nurse visit in [address] Perdomo in 4 weeks Elevate legs to the level of the heart or above for 30 minutes daily and/or when sitting, a frequency of: as much as possible Unna Boot: Do not remove Unna Boot. Keep dry. If pain or swelling or discoloration of toes noted, elevate legs above level of heart for 1 hour. If no relief, call the center. If unable to reach center, remove boot and keep leg elevated until contact with center can be made. Multilayer Compression Therapy - 4 layers: Do not get legs with compression wrap wet. If wraps seem too tight, elevate legs above level of heart for one hour. If no relief, call the wound center. documented in this encounter [facility] 11-24-2022 History of Present illness Narrative [facility] Nurse Visit Note Dameon Potter AGE: 67 y.o. GENDER: female : 1955 EPISODE DATE: 11/24/22 Arrival Information: Patient Arrived: Walker Transfer Assistance: None Accompanied by: self Any changes in medical history since last visit: No Added or removed any Medications: No Any new allergies: No Any falls since last visit: No Any hospitalizations or surgeries since last visit: No Assessment: There were no vitals filed for this visit. Treatment: Wound: none Patient was seen for a nurse visit to have profores changed. Dressing was removed. Wound was cleansed with soap, lotion was applied to periwound, NA dressing was applied to wound, unnaoot/profore compression wrap was applied per provider's orders. Discharge Information: Patient was discharged in stable condition. Ambulatory Status: Walker Discharge Destination: home Transportation: Private Auto Accompanied by: patient Schedule Follow up Appointment: no No orders of the defined types were placed in this encounter. documented in this encounter [facility] 11-22-2022 History of Present illness Narrative INITIAL VISIT - WOUND CARE Dameon Potter AGE: 67 y.o. GENDER: female : 1955 TODAY'S DATE: 10/25/2022 HISTORY OF PRESENT ILLNESS: Dameon Potter is a 67 y.o. female who presents today for F/U eval. +lymphedema. No new issues. Seems controlled with wraps. Wound Location : left, right, and leg The patients pain is Problem list: Patient Active Problem List: Endometrial cancer (CMS/HCC) (HCC) Obesity with body mass index greater than 30 OAB (overactive bladder) Uncontrolled type 2 diabetes mellitus with hyperglycemia, with long-term current use of insulin (HCC) Deficiency of nutrient elements Zinc deficiency Lymphedema Hepatic steatosis Calculus of gallbladder with chronic cholecystitis without obstruction Vitamin D deficiency Intestinal malabsorption Morbid obesity (HCC) Hypothyroidism Essential hypertension, benign Mixed hyperlipidemia Fatigue Obstructive sleep apnea SOB (shortness of breath) on exertion Gastritis without bleeding PND (post-nasal drip) Gastroesophageal reflux disease without esophagitis Asthma without status asthmaticus Candidal vulvovaginitis Cardiomegaly Cortical cataract of both eyes Diabetic retinopathy associated with type 2 diabetes mellitus (HCC) Diastolic dysfunction Dry eye syndrome of bilateral lacrimal glands Malignant neoplasm of uterus (HCC) Malnutrition of mild degree (Bianchi: 75% to less than 90% of standard weight) ([facility]) Moderate recurrent major depression ([facility]) Nuclear sclerotic cataract, bilateral Polycystic ovaries Posterior subcapsular age-related cataract of left eye Postmenopausal bleeding Primary open angle glaucoma of both eyes, mild stage Refractive error Chronic sinusitis Thyroglossal duct cyst Type 2 diabetes mellitus with hyperglycemia (CMS/HCC) ([facility]) Corneal epithelial basement membrane dystrophy Uncontrolled type 2 diabetes mellitus Review of Systems: General: Fever: Negative Night Sweats: Negative Lungs: Cough: Negative SOB: Negative Cardiovascular: Chest Pain: Negative Palpitations:Negative Nausea/Vomiting: Negative Abdominal Pain: Negative Change in Bowels: Negative Neuro: Seizures: Negative Confusion: Negative PAST MEDICAL HISTORY: Review of patient's family history indicates: Social History Socioeconomic History Marital status: Single Spouse name: Not on file Number of children: Not on file Years of education: Not on file Highest education level: Not on file Occupational History Not on file Tobacco Use Smoking status: Never Smokeless tobacco: Never Substance and Sexual Activity Alcohol use: No Drug use: No Sexual activity: Not on file Other Topics Concerns: Not on file Social History Narrative Not on file Social Determinants of Health Financial Resource Strain: Not on file Food Insecurity: Not on file Transportation Needs: Not on file Physical Activity: Not on file Stress: Not on file Social Connections: Not on file Intimate Partner Violence: Not on file Housing Stability: Not on file Past Surgical History: 01/29/2018: ATRIAL ABLATION SURGERY Comment: w/ LRYGB and Umbilical Hernia repair - Deepali No date: CATARACT EXTRACTION; Bilateral 09/03/2020: DILATION AND CURETTAGE OF UTERUS Comment: with hysteroscopy 01/29/2018: GASTRIC BYPASS Comment: LRYGB w/ Lap Gagie and Umbilical Hernia repair, Deepali No date: GASTRIC BYPASS 09/30/2020: HYSTERECTOMY Comment: TLH/BSO; Dr. Cuauhtemoc Stubbs : MOUTH SURGERY Comment: gum removal to expose wisdom teeth 2000: THYROGLOSSAL DUCT EXCISION Comment: [employer]- Dr. Vin Keating No date: THYROIDECTOMY 01/29/2018: UMBILICAL HERNIA REPAIR Comment: w/ LRYGB and Lap Aggie - Zografakis 03/20/2017: UPPER GASTROINTESTINAL ENDOSCOPY Comment: pre op, Deepali 2012: WISDOM TOOTH EXTRACTION Comment: [facility] Past Medical History: No date: Anxiety No date: Asthma No date: Deficiency of nutrient elements No date: Depression No date: Dry eye No date: Fatigue No date: Gastritis No date: GERD (gastroesophageal reflux disease) No date: Glaucoma No date: Glaucoma No date: Hyperlipidemia No date: Hypertension No date: Hypothyroid No date: Hypothyroidism No date: Incontinence No date: Intestinal malabsorption No date: Lymph edema No date: Morbid obesity ([facility]) ([facility]) No date: Obstructive sleep apnea No date: PMB (postmenopausal bleeding) No date: Polycystic ovarian syndrome No date: Psoriasis No date: SOB (shortness of breath) on exertion No date: Thyroglossal duct cyst No date: Type 2 diabetes mellitus without complication ([facility]) ([facility]) No date: Urinary tract infection No date: Uterine cancer ([facility]) ([facility]) 05/10/2017: Vitamin D deficiency 06/21/2018: Zinc deficiency Current Outpatient Medications on File Prior to Encounter: albuterol 108 (90 Base) MCG/ACT inhaler, Inhale 2 puffs every 6 hours as needed., Disp: , Rfl: atorvastatin (Lipitor) 40 MG tablet, Take by mouth daily., Disp: , Rfl: BD Insulin Syringe U/F 30G X 1/2 0.5 ML misc, , Disp: , Rfl: brimonidine (Alphagan P) 0.1 % ophthalmic solution, every 8 hours., Disp: , Rfl: carvedilol (Coreg) 6.25 MG tablet, Take 12.5 mg by mouth in the morning and 12.5 mg in the evening., Disp: , Rfl: cholecalciferol (Vitamin D-3) 50 MCG (2000 UT) tablet, Take 2,000 Units by mouth in the morning., Disp: , Rfl: citalopram (CeleXA) 20 MG tablet, Take by mouth Every 24 hours., Disp: , Rfl: Continuous Blood Gluc Sensor (FreeStyle Satya 2 Sensor) [facility], 1 Device every 14 (fourteen) days., Disp: 9 each, Rfl: 3 EPINEPHRINE HCL, ANAPHYLAXIS, IM, Inject into the shoulder, thigh, or buttocks., Disp: , Rfl: fluconazole (Diflucan) 150 MG tablet, TAKE 1 TABLET BY MOUTH 1 TIME FOR 1 DAY, Disp: , Rfl: fluconazole (Diflucan) 200 MG tablet, Take 1 tablet by mouth daily. PRN yeast infections, Disp: , Rfl: FREESTYLE LITE test strip, USE DIRECTED FOUR TIMES DAILY, Disp: , Rfl: glucose 4 g chewable tablet, Chew 16 g if needed for low blood sugar., Disp: , Rfl: hydrocortisone (West-Dmitri) 0.2 % cream, Apply topically every 12 hours., Disp: , Rfl: insulin glargine (Lantus) 100 UNIT/ML injection, Inject 25 Units under the skin Nightly., Disp: 30 mL, Rfl: 3 levothyroxine (Synthroid, Levoxyl) 175 MCG tablet, Take 1 tablet (175 mcg) by mouth every morning (before breakfast)., Disp: 90 tablet, Rfl: 3 metFORMIN (Glucophage) 500 MG tablet, Take 1 tablet (500 mg) by mouth in the morning and 1 tablet (500 mg) in the evening. Take with meals., Disp: 360 tablet, Rfl: 3 mirabegron ER (Myrbetriq) 50 MG 24 hr tablet, Every 24 hours. PRN, Disp: , Rfl: multivitamin, Pediatric, (Flintstones Gummies) chewable tablet, Chew 1 tablet., Disp: , Rfl: olmesartan (BENIcar) 40 MG tablet, Take 40 mg by mouth., Disp: , Rfl: [facility], Use as instructed, Disp: 100 each, Rfl: 12 PROTEIN PO, Take by mouth., Disp: , Rfl: Semaglutide,0.25 or 0.5MG/DOS, 2 MG/3ML solution pen-injector, Inject 0.25-0.5 mg under the skin 1 (one) time per week. 0.25 mg weeklyx 4 weeks then 0.5 mg weekly, Disp: 9 mL, Rfl: 3 valsartan (Diovan) 320 MG tablet, , Disp: , Rfl: Current Facility-Administered Medications on File Prior to Encounter: triamcinolone (Kenalog) 0.1 % cream, , Topical, Once, Jeromeniurka Perdomo MD Allergies as of 10/25/2022 - Reviewed 10/25/2022 -- Bimatoprost -- Other -- noted 05/06/2018 -- Doxycycline -- Hives -- noted 05/24/2022 -- Erythromycin -- Hives -- noted 05/24/2022 -- Levaquin [levofloxacin] -- Hives -- noted 05/24/2022 -- Macrobid [nitrofurantoin] -- Hives -- noted 05/24/2022 -- Penicillins -- Hives -- noted 05/24/2022 -- Levofloxacin in d5w -- Swelling -- noted 03/01/2015 -- Macrolides and ketolides -- Hives -- noted 02/27/2004 -- Molds & smuts -- Itching -- noted 03/24/2015 -- Nitrofurantoin monohyd macro -- Itching -- noted 12/22/2014 -- Other -- Itching -- noted 02/11/2013 PHYSICAL EXAM: Blood pressure (!) 166/90, pulse 64, temperature 37 C (97.8 F), temperature source Temporal, resp. rate 20. Gen: A and O x 3, NAD, well nourished Eyes: Sclera non icterus, PERRL Head: Normocephalic, non-tender Neck: Supple, no adenopathy, thyroid non tender and no masses,no carotid bruits Lungs: CTA, symmetrical Chest: RRR, no murmurs Abd: Soft, NT, ND, no HSM, no hernias, no bruits Ext: No edema, no cyanosis Psych: reveals appropriate mood, memory and judgment, Neuro: Reveals no gross motor or sensory deficits, Msk: 5/5 strength all 4 extremities, no joint tenderness Vascular: Pulses Fem + Pop DP/PT Assessment: Wound Reference Date is when first assessed. Measurements shown are from today's visit. Wound Wound Lymphedema, mild, both LE's. No ulcers or inflammation. IMPRESSION:Lymphedema (primary encounter diagnosis) Plan: Plan for wound - Treatment: see orders Discussed appropriate home care of this wound. Patient instructions were given. Follow up: per plan Electronically signed by AMAURY Escobar CNP 11/22/22 documented in this encounter [facility] 11-03-2022 History of Present illness Narrative [email or web address] Chief Complaint Patient presents with Follow-up Pt has no concerns. HISTORY OF THE PRESENT ILLNESS: Dameon Potter is a 67 y.o. with a history of Stage II grade 1 endometrial adenocarcinoma who presents today for routine surveillance of disease. She was initially diagnosed in 09/30/2020 and managed with robotic hysterectomy bilateral salpingo-oophorectomy followed by radiation therapy. INTERVAL SINCE RADIATION: 5 weeks 11/29/20 - 01/03/21: 45.00/45.00 Gy to the Pelvis in 25 fractions of 1.80 Gy using the VMAT/Daily IGRT technique with 10 MV over 35 days. 01/14/21 - 01/28/21: 30.00/30.00 Gy to the Vaginal Brachy in 5 fractions of 6.00 Gy using the Brachytherapy technique with HDR: Ir192 over 14 days. Interval History: Since the patient's last visit, she has been doing well and is without complaints. She denies abdominal pain, abdominal distension, pelvic pain, bloating, constipation, nausea, vomiting, increased abdominal girth, early satiety, weight loss, weight gain, vaginal bleeding and vaginal discharge, SOB. Reports her abd hernia has not changed. Pt has occasional UTIs and yeast infections which her PCP is helping to manage. 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 Had UA checked last month which was normal per pt. Currently, denies hematuria, fever, chills. At the end of her urine stream she experiences burning at times. Has ongoing issues with diarrhea since radiation. Using imodium as needed. Had gastric bypass surgery in 2018 and this also makes diarrhea worse for her. Wears depends and a susan pad. Also has urinary incontinence, was following with Dr. Ngo. Not interested in a referral at this time. Patient blood pressure is increased, took blood pressure medication this AM. PCP is helping to manage. Denies chest pain or shortness of breath, ARREOLA. Pt reports her blood pressure improves when she gets home and she has white coat syndrome. Has not used vaginal dilator. Patient has cellulitis on bilateral legs and follows with wound care. Enjoyed Easter with her family-lots of nieces and nephews. One niece is due in 2 weeks with baby, due around 11/2022. Past Medical History: Diagnosis Date Anxiety Asthma Deficiency of nutrient elements Depression Dry eye Fatigue Gastritis GERD (gastroesophageal reflux disease) Glaucoma Glaucoma Hyperlipidemia Hypertension Hypothyroid Hypothyroidism Incontinence Intestinal malabsorption Lymph edema Morbid obesity (CMS/HCC) (HCC) Obstructive sleep apnea PMB (postmenopausal bleeding) Polycystic ovarian syndrome Psoriasis SOB (shortness of breath) on exertion Thyroglossal duct cyst Type 2 diabetes mellitus without complication (CMS/HCC) (HCC) Urinary tract infection Uterine cancer (CMS/HCC) (HCC) Vitamin D deficiency 05/10/2017 Zinc deficiency 06/21/2018 Past Surgical History: Procedure Laterality Date ATRIAL ABLATION SURGERY 01/29/2018 w/ LRYGB and Umbilical Hernia repair - [facility] CATARACT EXTRACTION Bilateral DILATION AND CURETTAGE OF UTERUS 09/03/2020 with hysteroscopy GASTRIC BYPASS 01/29/2018 LRYGB w/ Lap Aggie and Umbilical Hernia repair, [facility] GASTRIC BYPASS HYSTERECTOMY 09/30/2020 TLH/BSO; Dr. Cuauhtemoc Stubbs MOUTH SURGERY 1979' gum removal to expose wisdom teeth THYROGLOSSAL DUCT EXCISION 2000 [facility]- Dr. Vin Keating THYROIDECTOMY UMBILICAL HERNIA REPAIR 01/29/2018 w/ LRYGB and Lap Aggie - [facility] UPPER GASTROINTESTINAL ENDOSCOPY 03/20/2017 pre op, [facility] WISDOM TOOTH EXTRACTION 2013 [email or web address] Allergies as of 11/03/2022 - Reviewed 11/03/2022 Allergen Reaction Noted Bimatoprost Other 05/06/2018 Doxycycline Hives 05/24/2022 Erythromycin Hives 05/24/2022 Levaquin [levofloxacin] Hives 05/24/2022 Macrobid [nitrofurantoin] Hives 05/24/2022 Penicillins Hives 05/24/2022 Levofloxacin in d5w Swelling 03/01/2015 Macrolides and ketolides Hives 02/27/2004 Molds & smuts Itching 03/24/2015 Nitrofurantoin monohyd macro Itching 12/22/2014 Other Itching 02/11/2013 REVIEW OF SYSTEMS: As per the HPI, otherwisenegative. There were no vitals filed for this visit. Body mass index is 45.68 kg/m . Physical Exam Constitutional: Appearance: Normal appearance. HENT: Head: Normocephalic. Pulmonary: Effort: Pulmonary effort is normal. Abdominal: Palpations: Abdomen is soft. Hernia: A hernia is present. Comments: Well-healed laparoscopic incisions Genitourinary: Comments: .Uterus, cervix, bilateral adnexa surgically absent. No lesions or nodularity of the vaginal cuff, posterior cul-de-sac or rectovaginal vault. Radiation changes seen through the vaginal canal. No bleeding or discharge noted. Musculoskeletal: Right lower leg: Edema present. Left lower leg: Edema present. Skin: General: Skin is warm and dry. Neurological: Mental Status: She is alert and oriented to person, place, and time. Psychiatric: Mood and Affect: Mood normal. Behavior: Behavior normal. ASSESSMENT/PLAN: 67 y.o. with Stage II grade 1 endometrial adenocarcinoma, currently without evidence of recurrence of disease. Continue routine surveillance of disease with visit every 6 months. Follow-up in 6 months. Continue with follow ups with PCP regarding occasional UTIs and yeast infections, HTN. The patient had an opportunity to ask questions, all of which were answered to the best of my ability. She is in agreement with the above noted plan. >51% of the visit was spent in direct face to face counseling and coordination of care. documented in this encounter [facility] 10-25-2022 History of Present illness Narrative INITIAL VISIT - WOUND CARE Dameon Potter AGE: 67 y.o. GENDER: female : 1955 TODAY'S DATE: 10/25/2022 HISTORY OF PRESENT ILLNESS: Dameon Potter is a 67 y.o. female who presents today for F/U eval. Of lymphedema. No new issues. Seems controlled with wraps. Wound Location : left, right, and leg The patients pain is Problem list: Patient Active Problem List: Endometrial cancer (CMS/HCC) (HCC) Obesity with body mass index greater than 30 OAB (overactive bladder) Uncontrolled type 2 diabetes mellitus with hyperglycemia, with long-term current use of insulin (HCC) Deficiency of nutrient elements Zinc deficiency Lymphedema Hepatic steatosis Calculus of gallbladder with chronic cholecystitis without obstruction Vitamin D deficiency Intestinal malabsorption Morbid obesity (HCC) Hypothyroidism Essential hypertension, benign Mixed hyperlipidemia Fatigue Obstructive sleep apnea SOB (shortness of breath) on exertion Gastritis without bleeding PND (post-nasal drip) Gastroesophageal reflux disease without esophagitis Asthma without status asthmaticus Candidal vulvovaginitis Cardiomegaly Cortical cataract of both eyes Diabetic retinopathy associated with type 2 diabetes mellitus ([facility]) Diastolic dysfunction Dry eye syndrome of bilateral lacrimal glands Malignant neoplasm of uterus ([facility]) Malnutrition of mild degree (Bianchi: 75% to less than 90% of standard weight) ([facility]) Moderate recurrent major depression ([facility]) Nuclear sclerotic cataract, bilateral Polycystic ovaries Posterior subcapsular age-related cataract of left eye Postmenopausal bleeding Primary open angle glaucoma of both eyes, mild stage Refractive error Chronic sinusitis Thyroglossal duct cyst Type 2 diabetes mellitus with hyperglycemia (CMS/HCC) ([facility]) Corneal epithelial basement membrane dystrophy Uncontrolled type 2 diabetes mellitus Review of Systems: General: Fever: Negative Night Sweats: Negative Eye: Blurry Vision:Negative Double Vision: Negative Ent: Headaches: Negative Sore throat: Negative Ear pain or drainage: Negative Allergy/Immunology: Hives: Negative Hematology/Lymphatic: Bleeding Problems: Negative Blood Clots: Negative Swollen Lymph Nodes: Negative Lungs: Cough: Negative SOB: Negative Cardiovascular: Chest Pain: Negative Palpitations:Negative GI: Nausea/Vomiting: Negative Abdominal Pain: Negative Change in Bowels: Negative : Dysuria: Negative Increase Urinary Frequency/Urgency: Negative Neuro: Seizures: Negative Confusion: Negative PAST MEDICAL HISTORY: Review of patient's family history indicates: Social History Socioeconomic History Marital status: Single Spouse name: Not on file Number of children: Not on file Years of education: Not on file Highest education level: Not on file Occupational History Not on file Tobacco Use Smoking status: Never Smokeless tobacco: Never Substance and Sexual Activity Alcohol use: No Drug use: No Sexual activity: Not on file Other Topics Concerns: Not on file Social History Narrative Not on file Social Determinants of Health Financial Resource Strain: Not on file Food Insecurity: Not on file Transportation Needs: Not on file Physical Activity: Not on file Stress: Not on file Social Connections: Not on file Intimate Partner Violence: Not on file Housing Stability: Not on file Past Surgical History: 01/29/2018: ATRIAL ABLATION SURGERY Comment: w/ LRYGB and Umbilical Hernia repair - [facility] No date: CATARACT EXTRACTION; Bilateral 09/03/2020: DILATION AND CURETTAGE OF UTERUS Comment: with hysteroscopy 01/29/2018: GASTRIC BYPASS Comment: LRYGB w/ Lap Aggie and Umbilical Hernia repair, [facility] No date: GASTRIC BYPASS 09/30/2020: HYSTERECTOMY Comment: TLH/BSO; Dr. Cuauhtemoc Stubbs : MOUTH SURGERY Comment: gum removal to expose wisdom teeth 2000: THYROGLOSSAL DUCT EXCISION Comment: [facility]- Dr. Vin Keating No date: THYROIDECTOMY 01/29/2018: UMBILICAL HERNIA REPAIR Comment: w/ LRYGB and Lap Aggie - [facility] 03/20/2017: UPPER GASTROINTESTINAL ENDOSCOPY Comment: pre op, Deepali 2012: WISDOM TOOTH EXTRACTION Comment: [facility] Past Medical History: No date: Anxiety No date: Asthma No date: Deficiency of nutrient elements No date: Depression No date: Dry eye No date: Fatigue No date: Gastritis No date: GERD (gastroesophageal reflux disease) No date: Glaucoma No date: Glaucoma No date: Hyperlipidemia No date: Hypertension No date: Hypothyroid No date: Hypothyroidism No date: Incontinence No date: Intestinal malabsorption No date: Lymph edema No date: Morbid obesity ([facility]) ([facility]) No date: Obstructive sleep apnea No date: PMB (postmenopausal bleeding) No date: Polycystic ovarian syndrome No date: Psoriasis No date: SOB (shortness of breath) on exertion No date: Thyroglossal duct cyst No date: Type 2 diabetes mellitus without complication ([facility]) ([facility]) No date: Urinary tract infection No date: Uterine cancer ([facility]) ([facility]) 05/10/2017: Vitamin D deficiency 06/21/2018: Zinc deficiency Current Outpatient Medications on File Prior to Encounter: albuterol 108 (90 Base) MCG/ACT inhaler, Inhale 2 puffs every 6 hours as needed., Disp: , Rfl: atorvastatin (Lipitor) 40 MG tablet, Take by mouth daily., Disp: , Rfl: BD Insulin Syringe U/F 30G X 1/2 0.5 ML [facility], , Disp: , Rfl: brimonidine (Alphagan P) 0.1 % ophthalmic solution, every 8 hours., Disp: , Rfl: carvedilol (Coreg) 6.25 MG tablet, Take 12.5 mg by mouth in the morning and 12.5 mg in the evening., Disp: , Rfl: cholecalciferol (Vitamin D-3) 50 MCG (2000 UT) tablet, Take 2,000 Units by mouth in the morning., Disp: , Rfl: citalopram (CeleXA) 20 MG tablet, Take by mouth Every 24 hours., Disp: , Rfl: Continuous Blood Gluc Sensor (FreeStyle Satya 2 Sensor) [facility], 1 Device every 14 (fourteen) days., Disp: 9 each, Rfl: 3 EPINEPHRINE HCL, ANAPHYLAXIS, IM, Inject into the shoulder, thigh, or buttocks., Disp: , Rfl: fluconazole (Diflucan) 150 MG tablet, TAKE 1 TABLET BY MOUTH 1 TIME FOR 1 DAY, Disp: , Rfl: fluconazole (Diflucan) 200 MG tablet, Take 1 tablet by mouth daily. PRN yeast infections, Disp: , Rfl: FREESTYLE LITE test strip, USE DIRECTED FOUR TIMES DAILY, Disp: , Rfl: glucose 4 g chewable tablet, Chew 16 g if needed for low blood sugar., Disp: , Rfl: hydrocortisone (West-Dmitri) 0.2 % cream, Apply topically every 12 hours., Disp: , Rfl: insulin glargine (Lantus) 100 UNIT/ML injection, Inject 25 Units under the skin Nightly., Disp: 30 mL, Rfl: 3 levothyroxine (Synthroid, Levoxyl) 175 MCG tablet, Take 1 tablet (175 mcg) by mouth every morning (before breakfast)., Disp: 90 tablet, Rfl: 3 metFORMIN (Glucophage) 500 MG tablet, Take 1 tablet (500 mg) by mouth in the morning and 1 tablet (500 mg) in the evening. Take with meals., Disp: 360 tablet, Rfl: 3 mirabegron ER (Myrbetriq) 50 MG 24 hr tablet, Every 24 hours. PRN, Disp: , Rfl: multivitamin, Pediatric, (Flintstones Gummies) chewable tablet, Chew 1 tablet., Disp: , Rfl: olmesartan (BENIcar) 40 MG tablet, Take 40 mg by mouth., Disp: , Rfl: pen needle 31G x 6 mm misc, Use as instructed, Disp: 100 each, Rfl: 12 PROTEIN PO, Take by mouth., Disp: , Rfl: Semaglutide,0.25 or 0.5MG/DOS, 2 MG/3ML solution pen-injector, Inject 0.25-0.5 mg under the skin 1 (one) time per week. 0.25 mg weeklyx 4 weeks then 0.5 mg weekly, Disp: 9 mL, Rfl: 3 valsartan (Diovan) 320 MG tablet, , Disp: , Rfl: Current Facility-Administered Medications on File Prior to Encounter: triamcinolone (Kenalog) 0.1 % cream, , Topical, Once, Jerome Perdomo MD Allergies as of 10/25/2022 - Reviewed 10/25/2022 -- Bimatoprost -- Other -- noted 05/06/2018 -- Doxycycline -- Hives -- noted 05/24/2022 -- Erythromycin -- Hives -- noted 05/24/2022 -- Levaquin [levofloxacin] -- Hives -- noted 05/24/2022 -- Macrobid [nitrofurantoin] -- Hives -- noted 05/24/2022 -- Penicillins -- Hives -- noted 05/24/2022 -- Levofloxacin in d5w -- Swelling -- noted 03/01/2015 -- Macrolides and ketolides -- Hives -- noted 02/27/2004 -- Molds & smuts -- Itching -- noted 03/24/2015 -- Nitrofurantoin monohyd macro -- Itching -- noted 12/22/2014 -- Other -- Itching -- noted 02/11/2013 PHYSICAL EXAM: Blood pressure (!) 169/82, pulse 60, temperature 36.6 C (97.8 F), temperature source Temporal, resp. rate 16. Gen: A and O x 3, NAD, well nourished Eyes: Sclera non icterus, PERRL Head: Normocephalic, non-tender Neck: Supple, no adenopathy, thyroid non tender and no masses,no carotid bruits Lungs: CTA, symmetrical Chest: RRR, no murmurs Abd: Soft, NT, ND, no HSM, no hernias, no bruits Ext: No edema, no cyanosis Psych: reveals appropriate mood, memory and judgment, Neuro: Reveals no gross motor or sensory deficits, Msk: 5/5 strength all 4 extremities, no joint tenderness Vascular: Pulses Fem + Pop DP/PT Assessment: BP (!) 169/82 (BP Location: Right arm, Patient Position: Sitting) Pulse 60 Temp 36.6 C (97.8 F) (Temporal) Resp 16 Wound Reference Date is when first assessed. Measurements shown are from today's visit. Wound BP (!) 169/82 (BP Location: Right arm, Patient Position: Sitting) Pulse 60 Temp 36.6 C (97.8 F) (Temporal) Resp 16 Wound Lymphedema, mild, both LE's. No ulcers or inflammation. IMPRESSION:Lymphedema (primary encounter diagnosis) Plan: Plan for wound - Treatment: see orders Discussed appropriate home care of this wound. Wound redressed. Patient instructions were given. Follow up: per plan documented in this encounter [facility] 10-25-2022 Hospital Discharge instructions Nieves Norris RN - 10/25/2022 11:00 AM EDT Nurse visit in [address] Perdomo in 4 weeks Elevate legs to the level of the heart or above for 30 minutes daily and/or when sitting, a frequency of: as much as possible Unna Boot: Do not remove Unna Boot. Keep dry. If pain or swelling or discoloration of toes noted, elevate legs above level of heart for 1 hour. If no relief, call the center. If unable to reach center, remove boot and keep leg elevated until contact with center can be made. Multilayer Compression Therapy - 4 layers: Do not get legs with compression wrap wet. If wraps seem too tight, elevate legs above level of heart for one hour. If no relief, call the wound center. documented in this encounter [facility] 10-06-2022 Telephone encounter Note Please see if patient qualifies for assistance for ozempic he is will to fill scripts with [facility] 10-06-2022 Miscellaneous Notes Please see if patient qualifies for assistance for ozempic he is will to fill scripts with [facility] Faxed request for lab results to [phone] Kristal, can you please call patient's pcp, Dr Mendez office ([phone]) on Sunday and have her lab results from couple weeks ago faxed to Lisa? I called office, they are closed. Lisa is requesting results. Thank you! documented in this encounter [facility] 10-06-2022 Telephone encounter Note Faxed request for lab results to [phone] [facility] 10-06-2022 Telephone encounter Note Kristal, can you please call patient's pcp, Dr Mendez office ([phone]) on Sunday and have her lab results from couple weeks ago faxed to Lisa? I called office, they are closed. Lisa is requesting results. Thank you! [facility] 09-27-2022 History of Present illness Narrative INITIAL VISIT - WOUND CARE Dameon Potter AGE: 67 y.o. GENDER: female : 1955 TODAY'S DATE: 09/27/2022 HISTORY OF PRESENT ILLNESS: Dameon Potter is a 67 y.o. female who presents today for lymphedema check-up. Problem is stable and well-controlled with wraps. No ulcers or weeping. Wound Location : left, right, and leg The patients pain is Problem list: Patient Active Problem List: Endometrial cancer (CMS/HCC) (HCC) Obesity with body mass index greater than 30 OAB (overactive bladder) Uncontrolled type 2 diabetes mellitus with hyperglycemia, with long-term current use of insulin ([facility]) Deficiency of nutrient elements Zinc deficiency Lymphedema Hepatic steatosis Calculus of gallbladder with chronic cholecystitis without obstruction Vitamin D deficiency Intestinal malabsorption Morbid obesity (CMS/HCC) ([facility]) Hypothyroidism Essential hypertension, benign Mixed hyperlipidemia Fatigue Obstructive sleep apnea SOB (shortness of breath) on exertion Gastritis without bleeding PND (post-nasal drip) Gastroesophageal reflux disease without esophagitis Asthma without status asthmaticus Candidal vulvovaginitis Cardiomegaly Cortical cataract of both eyes Diabetic retinopathy associated with type 2 diabetes mellitus (CMS/HCC) ([facility]) Diastolic dysfunction Dry eye syndrome of bilateral lacrimal glands Malignant neoplasm of uterus ([facility]) Malnutrition of mild degree (Bianchi: 75% to less than 90% of standard weight) ([facility]) Moderate recurrent major depression ([facility]) Nuclear sclerotic cataract, bilateral Polycystic ovaries Posterior subcapsular age-related cataract of left eye Postmenopausal bleeding Primary open angle glaucoma of both eyes, mild stage Refractive error Chronic sinusitis Thyroglossal duct cyst Type 2 diabetes mellitus with hyperglycemia (CMS/HCC) ([facility]) Review of Systems: General: Fever: Negative Night Sweats: Negative Eye: Blurry Vision:Negative Double Vision: Negative Ent: Headaches: Negative Sore throat: Negative Ear pain or drainage: Negative Allergy/Immunology: Hives: Negative Hematology/Lymphatic: Bleeding Problems: Negative Blood Clots: Negative Swollen Lymph Nodes: Negative Lungs: Cough: Negative SOB: Negative Cardiovascular: Chest Pain: Negative Palpitations:Negative GI: Nausea/Vomiting: Negative Abdominal Pain: Negative Change in Bowels: Negative : Dysuria: Negative Increase Urinary Frequency/Urgency: Negative Neuro: Seizures: Negative Confusion: Negative PAST MEDICAL HISTORY: Review of patient's family history indicates: Social History Socioeconomic History Marital status: Single Spouse name: Not on file Number of children: Not on file Years of education: Not on file Highest education level: Not on file Occupational History Not on file Tobacco Use Smoking status: Never Smokeless tobacco: Never Substance and Sexual Activity Alcohol use: No Drug use: No Sexual activity: Not on file Other Topics Concerns: Not on file Social History Narrative Not on file Social Determinants of Health Financial Resource Strain: Not on file Food Insecurity: Not on file Transportation Needs: Not on file Physical Activity: Not on file Stress: Not on file Social Connections: Not on file Intimate Partner Violence: Not on file Housing Stability: Not on file Past Surgical History: 01/29/2018: ATRIAL ABLATION SURGERY Comment: w/ LRYGB and Umbilical Hernia repair - [facility] No date: CATARACT EXTRACTION; Bilateral 09/03/2020: DILATION AND CURETTAGE OF UTERUS Comment: with hysteroscopy 01/29/2018: GASTRIC BYPASS Comment: LRYGB w/ Lap Aggie and Umbilical Hernia repair, [facility] No date: GASTRIC BYPASS 09/30/2020: HYSTERECTOMY Comment: TLH/BSO; Dr. Cuauhtemoc Stubbs 1979's: MOUTH SURGERY Comment: gum removal to expose wisdom teeth 2000: THYROGLOSSAL DUCT EXCISION Comment: [facility]- Dr. Vin Keating No date: THYROIDECTOMY 01/29/2018: UMBILICAL HERNIA REPAIR Comment: w/ LRYGB and Lap Aggie - [facility] 03/20/2017: UPPER GASTROINTESTINAL ENDOSCOPY Comment: pre opDeepali 2012: WISDOM TOOTH EXTRACTION Comment: [facility] Past Medical History: No date: Anxiety No date: Asthma No date: Deficiency of nutrient elements No date: Depression No date: Dry eye No date: Fatigue No date: Gastritis No date: GERD (gastroesophageal reflux disease) No date: Glaucoma No date: Glaucoma No date: Hyperlipidemia No date: Hypertension No date: Hypothyroid No date: Hypothyroidism No date: Incontinence No date: Intestinal malabsorption No date: Lymph edema No date: Morbid obesity (CMS/HCC) ([facility]) No date: Obstructive sleep apnea No date: PMB (postmenopausal bleeding) No date: Polycystic ovarian syndrome No date: Psoriasis No date: SOB (shortness of breath) on exertion No date: Thyroglossal duct cyst No date: Type 2 diabetes mellitus without complication (CMS/HCC) ([facility]) No date: Urinary tract infection No date: Uterine cancer (CMS/HCC) (HCC) 05/10/2017: Vitamin D deficiency 06/21/2018: Zinc deficiency Current Outpatient Medications on File Prior to Encounter: albuterol 108 (90 Base) MCG/ACT inhaler, Inhale 2 puffs every 6 hours as needed., Disp: , Rfl: atorvastatin (Lipitor) 40 MG tablet, Take by mouth daily., Disp: , Rfl: brimonidine (Alphagan P) 0.1 % ophthalmic solution, every 8 hours., Disp: , Rfl: carvedilol (Coreg) 6.25 MG tablet, Take by mouth every 12 hours., Disp: , Rfl: citalopram (CeleXA) 20 MG tablet, Take by mouth Every 24 hours., Disp: , Rfl: Continuous Blood Gluc Sensor (FreeStyle Satya 2 Sensor) [facility], 1 Device every 14 (fourteen) days., Disp: 9 each, Rfl: 3 dulaglutide (Trulicity) 0.75 MG/0.5ML solution pen-injector, Inject 0.75 mg under the skin 1 (one) time per week. (Patient not taking: Reported on 09/13/2022), Disp: 12 each, Rfl: 3 fluconazole (Diflucan) 200 MG tablet, Take 1 tablet by mouth daily. PRN yeast infections, Disp: , Rfl: FREESTYLE LITE test strip, USE DIRECTED FOUR TIMES DAILY, Disp: , Rfl: glucose 4 g chewable tablet, Chew 16 g if needed for low blood sugar., Disp: , Rfl: insulin glargine (Lantus) 100 UNIT/ML injection, Inject 25 Units under the skin Nightly. (Patient not taking: Reported on 09/13/2022), Disp: 30 mL, Rfl: 3 insulin regular (HumuLIN R) 500 UNIT/ML CONCENTRATED injection, Inject 7 Units under the skin daily., Disp: , Rfl: Lantus SoloStar 100 UNIT/ML pen, Inject 25 Units under the skin Nightly., Disp: , Rfl: levothyroxine (Synthroid, Levoxyl) 137 MCG tablet, Take 175 mcg by mouth in the morning., Disp: , Rfl: metFORMIN (Glucophage) 500 MG tablet, Take 500 mg by mouth in the morning and 500 mg in the evening., Disp: , Rfl: mirabegron ER (Myrbetriq) 50 MG 24 hr tablet, Every 24 hours. PRN, Disp: , Rfl: pen needle 31G x 6 mm misc, Use as instructed, Disp: 100 each, Rfl: 12 valsartan (Diovan) 320 MG tablet, , Disp: , Rfl: Current Facility-Administered Medications on File Prior to Encounter: triamcinolone (Kenalog) 0.1 % cream, , Topical, Once, Jerome Haile Perdomo MD Allergies as of 09/27/2022 - Reviewed 09/27/2022 -- Bimatoprost -- Other -- noted 05/06/2018 -- Doxycycline -- Hives -- noted 05/24/2022 -- Erythromycin -- Hives -- noted 05/24/2022 -- Levaquin [levofloxacin] -- Hives -- noted 05/24/2022 -- Macrobid [nitrofurantoin] -- Hives -- noted 05/24/2022 -- Penicillins -- Hives -- noted 05/24/2022 -- Macrolides and ketolides -- Hives -- noted 02/27/2004 -- Molds & smuts -- Itching -- noted 03/24/2015 -- Nitrofurantoin monohyd macro -- Itching -- noted 12/22/2014 PHYSICAL EXAM: Blood pressure (!) 185/77, pulse 65, temperature 36.8 C (98.3 F), temperature source Temporal, resp. rate 20. Gen: A and O x 3, NAD, well nourished Eyes: Sclera non icterus, PERRL Head: Normocephalic, non-tender Neck: Supple, no adenopathy, thyroid non tender and no masses,no carotid bruits Lungs: CTA, symmetrical Chest: RRR, no murmurs Abd: Soft, NT, ND, no HSM, no hernias, no bruits Ext: No edema, no cyanosis Psych: reveals appropriate mood, memory and judgment, Neuro: Reveals no gross motor or sensory deficits, Msk: 5/5 strength all 4 extremities, no joint tenderness Vascular: Pulses Fem + Pop DP/PT + Assessment: BP (!) 185/77 (BP Location: Left arm, Patient Position: Sitting, BP Cuff Size: Large adult long) Pulse 65 Temp 36.8 C (98.3 F) (Temporal) Resp 20 Wound Reference Date is when first assessed. Measurements shown are from today's visit. Wound BP (!) 185/77 (BP Location: Left arm, Patient Position: Sitting, BP Cuff Size: Large adult long) Pulse 65 Temp 36.8 C (98.3 F) (Temporal) Resp 20 Wound :Stable lymphedema LE's, no sx ulcers or inf. IMPRESSION:Lymphedema (primary encounter diagnosis) Plan: Plan for wound - Treatment: see orders Discussed appropriate home care of this wound. Wound redressed. Patient instructions were given. Follow up: every few wks documented in this encounter [facility] 09-27-2022 Hospital Discharge instructions Zayda Bradford RN - 09/27/2022 11:00 AM EST Elevate legs to the level of the heart or above for 30 minutes daily and/or when sitting, a frequency of: as much as possible Unna Boot: Do not remove Unna Boot. Keep dry. If pain or swelling or discoloration of toes noted, elevate legs above level of heart for 1 hour. If no relief, call the center. If unable to reach center, remove boot and keep leg elevated until contact with center can be made. Multilayer Compression Therapy - 4 layers: Do not get legs with compression wrap wet. If wraps seem too tight, elevate legs above level of heart for one hour. If no relief, call the wound center. documented in this encounter [facility] 09-13-2022 History of Present illness Narrative RADIATION ONCOLOGY FOLLOW UP PATIENT: Dameon Potter DATE OF SERVICE: 09/13/2022 : 1955 AGE: 67 y.o. 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 MMR proteins intact. STAGE: pT2 NX M0, II HISTORY OF PRESENT ILLNESS: Ms. Potter is a 67-year-old female who presented to her screening representative with postmenopausal bleeding. A D&C was performed on 09/03/2020 which identified grade 2 endometrial cancer, p53 wild-type. She was seen by Dr. Stubbs and on 09/30/2020 underwent a robotic hysterectomy with BSO. Per operative note, due to body habitus, sentinel node removal could not be performed. Pathology was noted to show involvement of the ectocervical/vaginal cuff margin. Patient was referred for radiation therapy. INTERVAL SINCE RADIATION: 1 1/2 year ? 11/29/20 - 01/03/21: 45.00/45.00 Gy to the Pelvis in 25 fractions of 1.80 Gy using the VMAT/Daily IGRT technique with 10 MV over 35 days. ? 01/14/21 - 01/28/21: 30.00/30.00 Gy to the Vaginal Brachy in 5 fractions of 6.00 Gy using the Brachytherapy technique with HDR: Ir192 over 14 days. INTERVAL HISTORY: Patient here for follow-up. 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 She continues to do the leg wraps. She still has a periodic yeast infections. She has intermittent diarrhea and urinary incontinence. She uses Imodium as needed. She was recently treated for a yeast infection after noticing some pinkish vaginal drainage. No further drainage. She is scheduled to see [facility] again in October. No new respiratory cardiac complaints. No arm swelling. No open skin areas. PAST MEDICAL HISTORY: Past Medical History: Diagnosis Date Anxiety Asthma Deficiency of nutrient elements Depression Dry eye Fatigue Gastritis GERD (gastroesophageal reflux disease) Glaucoma Glaucoma Hyperlipidemia Hypertension Hypothyroid Hypothyroidism Incontinence Intestinal malabsorption Lymph edema Morbid obesity (CMS/HCC) (HCC) Obstructive sleep apnea PMB (postmenopausal bleeding) Polycystic ovarian syndrome Psoriasis SOB (shortness of breath) on exertion Thyroglossal duct cyst Type 2 diabetes mellitus without complication (CMS/HCC) (HCC) Urinary tract infection Uterine cancer (CMS/HCC) (HCC) Vitamin D deficiency 05/10/2017 Zinc deficiency 06/21/2018 PAST SURGICAL HISTORY: Past Surgical History: Procedure Laterality Date ATRIAL ABLATION SURGERY 01/29/2018 w/ LRYGB and Umbilical Hernia repair - [facility] CATARACT EXTRACTION Bilateral DILATION AND CURETTAGE OF UTERUS 09/03/2020 with hysteroscopy GASTRIC BYPASS 01/29/2018 LRYGB w/ Lap Aggie and Umbilical Hernia repair, [facility] GASTRIC BYPASS HYSTERECTOMY 09/30/2020 [facility]/BSO; Dr. Cuauhtemoc Stubbs MOUTH SURGERY gum removal to expose wisdom teeth THYROGLOSSAL DUCT EXCISION [address] [employer]- [address]. Vin Keating THYROIDECTOMY UMBILICAL HERNIA REPAIR 01/29/2018 w/ LRYGB and Lap Aggie - [facility] UPPER GASTROINTESTINAL ENDOSCOPY 03/20/2017 pre op, [facility] WISDOM TOOTH EXTRACTION [facility] [employer] ALLERGIES: Allergies as of 09/13/2022 - Reviewed 09/13/2022 Allergen Reaction Noted Bimatoprost Other 05/06/2018 Doxycycline Hives 05/24/2022 Erythromycin Hives 05/24/2022 Levaquin [levofloxacin] Hives 05/24/2022 Macrobid [nitrofurantoin] Hives 05/24/2022 Penicillins Hives 05/24/2022 Macrolides and ketolides Hives 02/27/2004 Molds & smuts Itching 03/24/2015 Nitrofurantoin monohyd macro Itching 12/22/2014 MEDICATIONS: Current Outpatient Medications Medication Sig Dispense Refill albuterol 108 (90 Base) MCG/ACT inhaler Inhale 2 puffs every 6 hours as needed. atorvastatin (Lipitor) 40 MG tablet Take by mouth daily. brimonidine (Alphagan P) 0.1 % ophthalmic solution every 8 hours. carvedilol (Coreg) 6.25 MG tablet Take by mouth every 12 hours. citalopram (CeleXA) 20 MG tablet Take by mouth Every 24 hours. Continuous Blood Gluc Sensor (FreeStyle Satya 2 Sensor) misc 1 Device every 14 (fourteen) days. 9 each 3 fluconazole (Diflucan) 200 MG tablet Take 1 tablet by mouth daily. PRN yeast infections FREESTYLE LITE test strip USE DIRECTED FOUR TIMES DAILY glucose 4 g chewable tablet Chew 16 g if needed for low blood sugar. insulin regular (HumuLIN R) 500 UNIT/ML CONCENTRATED injection Inject 7 Units under the skin daily. levothyroxine (Synthroid, Levoxyl) 137 MCG tablet Take 175 mcg by mouth in the morning. mirabegron ER (Myrbetriq) 50 MG 24 hr tablet Every 24 hours. PRN pen needle 31G x [facility] Use as instructed 100 each 12 valsartan (Diovan) 320 MG tablet dulaglutide (Trulicity) 0.75 MG/0.5ML solution pen-injector Inject 0.75 mg under the skin 1 (one) time per week. (Patient not taking: Reported on 09/13/2022) 12 each 3 insulin glargine (Lantus) 100 UNIT/ML injection Inject 25 Units under the skin Nightly. (Patient not taking: Reported on 09/13/2022) 30 mL 3 Lantus SoloStar 100 UNIT/ML pen Inject 25 Units under the skin Nightly. metFORMIN (Glucophage) 500 MG tablet Take 500 mg by mouth in the morning and 500 mg in the evening. Current Facility-Administered Medications Medication Dose Route Frequency Provider Last Rate Last Admin triamcinolone (Kenalog) 0.1 % cream Topical Once Jerome Perdomo MD REVIEW OF SYSTEMS: As above. Pain score 0. KPS: 70 SUMMARY OF SIGNIFICIANT X-RAY/LABORATORY FINDINGS: CT for radiation planning on 01/10/2021 identified diverticular disease in the sigmoid without diverticulitis. Post-surgery changes noted. Hemoglobin A1c level on 07/07/2022 was 10.3. PHYSICAL EXAM: Nurse present for full visit. BP (!) 148/73 Pulse 74 Temp 97.8 F (36.6 C) Resp 18 Ht 5' 6 (1.676 m) Wt 281 lb (127 kg) BMI 45.35 kg/m /Pain Score: 0 - No pain GENERAL: Awake, alert, oriented x3, no anxiety, dressed appropriately, appears of stated age. Ambulates with wheeled walker. Speech pattern fluent. LUNGS: Clear to auscultation. No rales or rhonchi. HEART: Regular rate and rhythm, S1-S2 noted no murmur. NECK: Symmetric. NODES: No neck, supraclavicular, infraclavicular adenopathy. ABDOMEN: Soft, nontender, nondistended. No hepatosplenomegaly, no suspicious mass. [facility]: Normal external genitalia. Vaginal vault without mass or ulcerations. Mild erythema noted apically as prior. Mild erythema of the perineal region secondary to the urinary incontinence as prior. No inguinal adenopathy. MUSCULOSKELETAL: Chronic lower extremity lymphedema identified. Legs are wrapped. SKIN: Under pannus and and groins is intact. IMPRESSION: Dameon Potter is a 67 y.o. female with history of uterine cancer treated with surgery and postoperative external radiation along with vaginal brachytherapy boost. The patient continues to work with her special forces senior sergeant for management of the diabetes. She knows that if this is under control that the yeast infections will probably decrease. She is trying to eat healthy and stay hydrated. Clinically there is no sign of recurrence. PLAN: Return to office in 6 months. Ino He MD [facility] Department of Radiation Oncology is an Accredited Facility of the [employer] ([employer]). Total time: 25 minutes in chart review, lab/radiology evaluation/interpretation, patient exam, patient counseling and care coordination. This document was completed utilizing speech recognition software. Grammatical errors, random word insertions, pronoun errors, and incomplete sentences are an occasional consequence of this system due to software limitations, ambient noise, and hardware issues. Any formal questions or concerns about the content, text or information contained within the body of this dictation should be directly addressed to the provider for clarification. documented in this encounter [facility] 09-13-2022 Nurse Note Pt here alone today for follow up with Dr. He. Pt denies any pain at this time. Appetite is WNL. Energy level is fair- sleeping ok. Pt reports occasional ongoing diarrhea. Takes Imodium as needed. Pt also reports urinary incontinence- which is not new. Pt states she still has frequent yeast infections. She did notice some pink tinged vaginal drainage last week. Pt states she took some Dliflucan for an infection and has not noticed any drainage since. Continues to follow up with Dr. Stubbs. Medications, allergies, and history reviewed. VALENTÍN Dee assisted Dr. He with pelvic exam. Pt tolerated well. [facility] 09-13-2022 Nurse Note Pt here alone today for follow up with Dr. He. Pt denies any pain at this time. Appetite is WNL. Energy level is fair- sleeping ok. Pt reports occasional ongoing diarrhea. Takes Imodium as needed. Pt also reports urinary incontinence- which is not new. Pt states she still has frequent yeast infections. She did notice some pink tinged vaginal drainage last week. Pt states she took some Dliflucan for an infection and has not noticed any drainage since. Continues to follow up with Dr. Stubbs. Medications, allergies, and history reviewed. VALENTÍN Dee assisted Dr. He with pelvic exam. Pt tolerated well. documented in this encounter [facility] 08-30-2022 History of Present illness Narrative INITIAL VISIT - WOUND CARE Dameon Potter AGE: 67 y.o. GENDER: female : 1955 TODAY'S DATE: 08/30/2022 HISTORY OF PRESENT ILLNESS: Dameon Potter is a 67 y.o. female who presents today for evaluation and wrapping of lymphedema. No acute issues. Wound Location : left, right, and leg The patients pain is Problem list: Patient Active Problem List Diagnosis Endometrial cancer (CMS/HCC) (HCC) Obesity with body mass index greater than 30 OAB (overactive bladder) Uncontrolled type 2 diabetes mellitus with hyperglycemia, with long-term current use of insulin (HCC) Deficiency of nutrient elements Zinc deficiency Lymphedema Hepatic steatosis Calculus of gallbladder with chronic cholecystitis without obstruction Vitamin D deficiency Intestinal malabsorption Morbid obesity (CMS/HCC) (HCC) Hypothyroidism Essential hypertension, benign Mixed hyperlipidemia Fatigue Obstructive sleep apnea SOB (shortness of breath) on exertion Gastritis without bleeding PND (post-nasal drip) Gastroesophageal reflux disease without esophagitis Asthma without status asthmaticus Candidal vulvovaginitis Cardiomegaly Cortical cataract of both eyes Diabetic retinopathy associated with type 2 diabetes mellitus (CMS/HCC) (HCC) Diastolic dysfunction Dry eye syndrome of bilateral lacrimal glands Malignant neoplasm of uterus (HCC) Malnutrition of mild degree (Bianchi: 75% to less than 90% of standard weight) ([facility]) Moderate recurrent major depression (HCC) Nuclear sclerotic cataract, bilateral Polycystic ovaries Posterior subcapsular age-related cataract of left eye Postmenopausal bleeding Primary open angle glaucoma of both eyes, mild stage Refractive error Chronic sinusitis Thyroglossal duct cyst Type 2 diabetes mellitus with hyperglycemia (CMS/HCC) ([facility]) Review of Systems: General: Fever: Negative Night Sweats: Negative Eye: Blurry Vision:Negative Double Vision: Negative Ent: Headaches: Negative Sore throat: Negative Ear pain or drainage: neg 1. Lymphedema Allergy/Immunology: Hives: Negative Hematology/Lymphatic: Bleeding Problems: Negative Blood Clots: Negative Swollen Lymph Nodes: Negative Lungs: Cough: Negative SOB: Negative Cardiovascular: Chest Pain: Negative Palpitations:Negative GI: Nausea/Vomiting: Negative Abdominal Pain: Negative Change in Bowels:neg : Dysuria: Negative Increase Urinary Frequency/Urgency: Negative Neuro: Seizures: Negative Confusion: Negative PAST MEDICAL HISTORY: Family History Problem Relation Name Age of Onset Stroke Father Obesity Mother dementia Diabetes Mother dementia High Blood Pressure Mother dementia Heart disease Mother dementia Stroke Paternal Grandfather High Blood Pressure Father Diabetes Father Diabetes Paternal Grandfather Heart attack Paternal Grandmother Colon cancer Neg Hx High Blood Pressure Brother Cancer Father bladder Obesity Father Social History Socioeconomic History Marital status: Single Spouse name: Not on file Number of children: Not on file Years of education: Not on file Highest education level: Not on file Occupational History Not on file Tobacco Use Smoking status: Never Smokeless tobacco: Never Substance and Sexual Activity Alcohol use: No Drug use: No Sexual activity: Not on file Other Topics Concern Not on file Social History Narrative Not on file Social Determinants of Health Financial Resource Strain: Not on file Food Insecurity: Not on file Transportation Needs: Not on file Physical Activity: Not on file Stress: Not on file Social Connections: Not on file Intimate Partner Violence: Not on file Housing Stability: Not on file Past Surgical History: Procedure Laterality Date ATRIAL ABLATION SURGERY 01/29/2018 w/ LRYGB and Umbilical Hernia repair - [facility] CATARACT EXTRACTION Bilateral DILATION AND CURETTAGE OF UTERUS 09/03/2020 with hysteroscopy GASTRIC BYPASS 01/29/2018 LRYGB w/ Lap Aggie and Umbilical Hernia repair, [facility] GASTRIC BYPASS HYSTERECTOMY 09/30/2020 [facility]/BSO; Dr. Cuauhtemoc Stubbs MOUTH SURGERY gum removal to expose wisdom teeth THYROGLOSSAL DUCT EXCISION 2000 [facility]- Dr. Vin Keating THYROIDECTOMY UMBILICAL HERNIA REPAIR 01/29/2018 w/ LRYGB and Lap Aggie - [facility] UPPER GASTROINTESTINAL ENDOSCOPY 03/20/2017 pre op, [facility] WISDOM TOOTH EXTRACTION [facility] Past Medical History: Diagnosis Date Anxiety Asthma Deficiency of nutrient elements Depression Dry eye Fatigue Gastritis GERD (gastroesophageal reflux disease) Glaucoma Glaucoma Hyperlipidemia Hypertension Hypothyroid Hypothyroidism Incontinence Intestinal malabsorption Lymph edema Morbid obesity (CMS/HCC) (HCC) Obstructive sleep apnea PMB (postmenopausal bleeding) Polycystic ovarian syndrome Psoriasis SOB (shortness of breath) on exertion Thyroglossal duct cyst Type 2 diabetes mellitus without complication (CMS/HCC) (HCC) Urinary tract infection Uterine cancer (CMS/HCC) ([facility]) Vitamin D deficiency 05/10/2017 Zinc deficiency 06/21/2018 Current Outpatient Medications on File Prior to Encounter Medication Sig Dispense Refill albuterol 108 (90 Base) MCG/ACT inhaler Inhale 2 puffs. atorvastatin (Lipitor) 40 MG tablet 1 tab(s) brimonidine (Alphagan P) 0.1 % ophthalmic solution every 8 hours. carvedilol (Coreg) 6.25 MG tablet every 12 hours. citalopram (CeleXA) 20 MG tablet Every 24 hours. Continuous Blood Gluc Sensor (FreeStyle Satya 2 Sensor) [facility] 1 Device every 14 (fourteen) days. 9 each 3 dulaglutide (Trulicity) 0.75 MG/0.5ML solution pen-injector Inject 0.75 mg under the skin 1 (one) time per week. 12 each 3 fluconazole (Diflucan) 200 MG tablet Take 1 tablet by mouth in the morning. FREESTYLE LITE test strip USE DIRECTED FOUR TIMES DAILY glucose 4 g chewable tablet Chew 16 g if needed for low blood sugar. insulin glargine (Lantus) 100 UNIT/ML injection Inject 25 Units under the skin Nightly. 30 mL 3 insulin regular (HumuLIN R) 500 UNIT/ML CONCENTRATED injection Inject 7 Units under the skin daily. Lantus SoloStar 100 UNIT/ML pen Inject 25 Units under the skin Nightly. levothyroxine (Synthroid, Levoxyl) 137 MCG tablet Take 175 mcg by mouth in the morning. metFORMIN (Glucophage) 500 MG tablet Take 500 mg by mouth in the morning and 500 mg in the evening. mirabegron ER (Myrbetriq) 50 MG 24 hr tablet Every 24 hours. pen needle 31G x 6 mm misc Use as instructed 100 each 12 triamcinolone (Kenalog) 0.1 % cream Apply topically 2 times daily. 80 g 2 valsartan (Diovan) 320 MG tablet Current Facility-Administered Medications on File Prior to Encounter Medication Dose Route Frequency Provider Last Rate Last Admin triamcinolone (Kenalog) 0.1 % cream Topical Once Jerome Perdomo MD Allergies as of 08/30/2022 - Reviewed 07/19/2022 Allergen Reaction Noted Bimatoprost Other 05/06/2018 Doxycycline Hives 05/24/2022 Erythromycin Hives 05/24/2022 Levaquin [levofloxacin] Hives 05/24/2022 Macrobid [nitrofurantoin] Hives 05/24/2022 Penicillins Hives 05/24/2022 Macrolides and ketolides Hives 02/27/2004 Molds & smuts Itching 03/24/2015 Nitrofurantoin monohyd macro Itching 12/22/2014 PHYSICAL EXAM: There were no vitals taken for this visit. Gen: A and O x 3, NAD, well nourished Eyes: Sclera non icterus, PERRL Head: Normocephalic, non-tender Neck: Supple, no adenopathy, thyroid non tender and no masses,no carotid bruits Lungs: CTA, symmetrical Chest: RRR, no murmurs Abd: Soft, NT, ND, no HSM, no hernias, no bruits Ext: No edema, no cyanosis Psych: reveals appropriate mood, memory and judgment, Neuro: Reveals no gross motor or sensory deficits, Msk: 5/5 strength all 4 extremities, no joint tenderness Vascular: Pulses Fem + Pop DP/PT Assessment: There were no vitals taken for this visit. Wound Reference Date is when first assessed. Measurements shown are from today's visit. Wound There were no vitals taken for this visit. Wound Lymphedema controlled. IMPRESSION: 1. Lymphedema Plan: Plan for wound - Treatment: see orders Discussed appropriate home care of this wound. Wound redressed. Patient instructions were given. Follow up: 1 week. documented in this encounter [facility] 02-08-2023 Hospital Discharge instructions Zayda Bradford RN - 08/30/2022 11:00 AM EST Elevate legs to the level of the heart or above for 30 minutes daily and/or when sitting, a frequency of: as much as possible Unna Boot: Do not remove Unna Boot. Keep dry. If pain or swelling or discoloration of toes noted, elevate legs above level of heart for 1 hour. If no relief, call the center. If unable to reach center, remove boot and keep leg elevated until contact with center can be made. Multilayer Compression Therapy - 4 layers: Do not get legs with compression wrap wet. If wraps seem too tight, elevate legs above level of heart for one hour. If no relief, call the wound center. Apply Triamcinolone cream to both legs documented in this encounter [facility] 08-02-2022 History of Present illness Narrative INITIAL VISIT - WOUND CARE Dameon Potter AGE: 67 y.o. GENDER: female : 1955 TODAY'S DATE: 08/02/2022 HISTORY OF PRESENT ILLNESS: Dameon Potter is a 67 y.o. female who presents today with F/U for lymphedema Rx. Doing fairly well. Edema controlled with wraps. Wound Location : left, right, and leg The patients pain is Problem list: Patient Active Problem List Diagnosis Endometrial cancer (CMS/HCC) ([facility]) Obesity with body mass index greater than 30 OAB (overactive bladder) Uncontrolled type 2 diabetes mellitus with hyperglycemia, with long-term current use of insulin ([facility]) Deficiency of nutrient elements Zinc deficiency Lymphedema Hepatic steatosis Calculus of gallbladder with chronic cholecystitis without obstruction Vitamin D deficiency Intestinal malabsorption Morbid obesity (CMS/HCC) ([facility]) Hypothyroidism Essential hypertension, benign Mixed hyperlipidemia Fatigue Obstructive sleep apnea SOB (shortness of breath) on exertion Gastritis without bleeding PND (post-nasal drip) Gastroesophageal reflux disease without esophagitis Asthma without status asthmaticus Candidal vulvovaginitis Cardiomegaly Cortical cataract of both eyes Diabetic retinopathy associated with type 2 diabetes mellitus (CMS/HCC) ([facility]) Diastolic dysfunction Dry eye syndrome of bilateral lacrimal glands Malignant neoplasm of uterus (HCC) Malnutrition of mild degree (Bianchi: 75% to less than 90% of standard weight) (HCC) Moderate recurrent major depression (HCC) Nuclear sclerotic cataract, bilateral Polycystic ovaries Posterior subcapsular age-related cataract of left eye Postmenopausal bleeding Primary open angle glaucoma of both eyes, mild stage Refractive error Chronic sinusitis Thyroglossal duct cyst Type 2 diabetes mellitus with hyperglycemia (CMS/HCC) (HCC) Review of Systems: General: Fever: Negative Night Sweats: Negative Eye: Blurry Vision:Negative Double Vision: Negative Ent: Headaches: Negative Sore throat: Negative Allergy/Immunology: Hives: Negative Hematology/Lymphatic: Bleeding Problems: Negative Blood Clots: Negative Swollen Lymph Nodes: Negative Lungs: Cough: Negative SOB: Negative Cardiovascular: Chest Pain: Negative Palpitations:Negative GI: Nausea/Vomiting: Negative Abdominal Pain: Negative Change in Bowels:{Pos/neg for:11260) : Dysuria: Negative Increase Urinary Frequency/Urgency: Negative Neuro: Seizures: Negative Confusion: Negative PAST MEDICAL HISTORY: Family History Problem Relation Name Age of Onset Stroke Father Obesity Mother dementia Diabetes Mother dementia High Blood Pressure Mother dementia Heart disease Mother dementia Stroke Paternal Grandfather High Blood Pressure Father Diabetes Father Diabetes Paternal Grandfather Heart attack Paternal Grandmother Colon cancer Neg Hx High Blood Pressure Brother Cancer Father bladder Obesity Father Social History Socioeconomic History Marital status: Single Spouse name: Not on file Number of children: Not on file Years of education: Not on file Highest education level: Not on file Occupational History Not on file Tobacco Use Smoking status: Never Smokeless tobacco: Never Substance and Sexual Activity Alcohol use: No Drug use: No Sexual activity: Not on file Other Topics Concern Not on file Social History Narrative Not on file Social Determinants of Health Financial Resource Strain: Not on file Food Insecurity: Not on file Transportation Needs: Not on file Physical Activity: Not on file Stress: Not on file Social Connections: Not on file Intimate Partner Violence: Not on file Housing Stability: Not on file Past Surgical History: Procedure Laterality Date ATRIAL ABLATION SURGERY 01/29/2018 w/ LRYGB and Umbilical Hernia repair - [facility] CATARACT EXTRACTION Bilateral DILATION AND CURETTAGE OF UTERUS 09/03/2020 with hysteroscopy GASTRIC BYPASS 01/29/2018 LRYGB w/ Lap Aggie and Umbilical Hernia repair, [facility] GASTRIC BYPASS HYSTERECTOMY 09/30/2020 [facility]; Dr. Cuauhtemoc Stubbs MOUTH SURGERY 1979' gum removal to expose wisdom teeth THYROGLOSSAL DUCT EXCISION 2000 [facility]- Dr. Vin Keating THYROIDECTOMY UMBILICAL HERNIA REPAIR 01/29/2018 w/ LRYGB and Lap Aggie - Deepali UPPER GASTROINTESTINAL ENDOSCOPY 03/20/2017 pre op, Deepali WISDOM TOOTH EXTRACTION 2013 [facility] Past Medical History: Diagnosis Date Anxiety Asthma Deficiency of nutrient elements Depression Dry eye Fatigue Gastritis GERD (gastroesophageal reflux disease) Glaucoma Glaucoma Hyperlipidemia Hypertension Hypothyroid Hypothyroidism Incontinence Intestinal malabsorption Lymph edema Morbid obesity (CMS/HCC) (HCC) Obstructive sleep apnea PMB (postmenopausal bleeding) Polycystic ovarian syndrome Psoriasis SOB (shortness of breath) on exertion Thyroglossal duct cyst Type 2 diabetes mellitus without complication (CMS/HCC) (HCC) Urinary tract infection Uterine cancer (CMS/HCC) ([facility]) Vitamin D deficiency 05/10/2017 Zinc deficiency 06/21/2018 Current Outpatient Medications on File Prior to Encounter Medication Sig Dispense Refill albuterol 108 (90 Base) MCG/ACT inhaler Inhale 2 puffs. atorvastatin (Lipitor) 40 MG tablet 1 tab(s) brimonidine (Alphagan P) 0.1 % ophthalmic solution every 8 hours. carvedilol (Coreg) 6.25 MG tablet every 12 hours. citalopram (CeleXA) 20 MG tablet Every 24 hours. Continuous Blood Gluc Sensor (FreeStyle Satya 2 Sensor) misc 1 Device every 14 (fourteen) days. 9 each 3 dulaglutide (Trulicity) 0.75 MG/0.5ML solution pen-injector Inject 0.75 mg under the skin 1 (one) time per week. 12 each 3 fluconazole (Diflucan) 200 MG tablet Take 1 tablet by mouth in the morning. FREESTYLE LITE test strip USE DIRECTED FOUR TIMES DAILY insulin glargine (Lantus) 100 UNIT/ML injection Inject 25 Units under the skin Nightly. 30 mL 3 insulin regular (HumuLIN R) 500 UNIT/ML CONCENTRATED injection Inject 7 Units under the skin daily. Lantus SoloStar 100 UNIT/ML pen Inject 25 Units under the skin Nightly. levothyroxine (Synthroid, Levoxyl) 137 MCG tablet Take 175 mcg by mouth in the morning. metFORMIN (Glucophage) 500 MG tablet Take 500 mg by mouth in the morning and 500 mg in the evening. mirabegron ER (Myrbetriq) 50 MG 24 hr tablet Every 24 hours. pen needle 31G x 6 mm misc Use as instructed 100 each 12 valsartan (Diovan) 320 MG tablet Current Facility-Administered Medications on File Prior to Encounter Medication Dose Route Frequency Provider Last Rate Last Admin triamcinolone (Kenalog) 0.1 % cream Topical Once Jerome Perdomo MD Allergies as of 08/02/2022 - Reviewed 07/19/2022 Allergen Reaction Noted Bimatoprost Other 05/06/2018 Doxycycline Hives 05/24/2022 Erythromycin Hives 05/24/2022 Levaquin [levofloxacin] Hives 05/24/2022 Macrobid [nitrofurantoin] Hives 05/24/2022 Penicillins Hives 05/24/2022 Macrolides and ketolides Hives 02/27/2004 Molds & smuts Itching 03/24/2015 Nitrofurantoin monohyd macro Itching 12/22/2014 PHYSICAL EXAM: There were no vitals taken for this visit. Gen: A and O x 3, NAD, well nourished Eyes: Sclera non icterus, PERRL Head: Normocephalic, non-tender Neck: Supple, no adenopathy, thyroid non tender and no masses,no carotid bruits Lungs: CTA, symmetrical Chest: RRR, no murmurs Abd: Soft, NT, ND, no HSM, no hernias, no bruits Ext: No edema, no cyanosis Psych: reveals appropriate mood, memory and judgment, Neuro: Reveals no gross motor or sensory deficits, Msk: 5/5 strength all 4 extremities, no joint tenderness Vascular: Pulses Fem + Pop DP/PT Assessment: There were no vitals taken for this visit. Wound Reference Date is when first assessed. Measurements shown are from today's visit. Wound There were no vitals taken for this visit. Wound 1-2+ lymphedema both LE's. No ulcers. IMPRESSION: 1. Lymphedema Plan: Plan for wound - Treatment: see orders Discussed appropriate home care of this wound. Wound redressed. Patient instructions were given. Follow up: 1 week. documented in this encounter [facility] 08-02-2022 Hospital Discharge instructions Zayda Bradford RN - 08/02/2022 11:00 AM EST Elevate legs to the level of the heart or above for 30 minutes daily and/or when sitting, a frequency of: as much as possible Unna Boot: Do not remove Unna Boot. Keep dry. If pain or swelling or discoloration of toes noted, elevate legs above level of heart for 1 hour. If no relief, call the center. If unable to reach center, remove boot and keep leg elevated until contact with center can be made. Multilayer Compression Therapy - 4 layers: Do not get legs with compression wrap wet. If wraps seem too tight, elevate legs above level of heart for one hour. If no relief, call the wound center. Apply Triamcinolone cream to both legs documented in this encounter [facility] 08-01-2022 Telephone encounter Note I just checked the notes are sighed I just printed them in the MA room for you [facility] 08-01-2022 Miscellaneous Notes I just checked the notes are sighed I just printed them in the MA room for you Name of caller: Gordon Contact phone number: [phone] Relationship to Patient: [employer] Provider: Anthony Practice: [facility] Complaint/Reason for Call: Carly has sent over office notes for a CGM, however these notes were not electrically signed, and that's what are needed to proceed. Please advise Best time of day caller can be reached: Patient advised that office/PCP has 24-48 business hours to return their call: documented in this encounter [facility] 07-31-2022 Telephone encounter Note Name of caller: Gordon Contact phone number: [phone] Relationship to Patient: [employer] Provider: Anthony Practice: [facility] Chief Complaint/Reason for Call: States Carroll has sent over office notes for a CGM, however these notes were not electrically signed, and that's what are needed to proceed. Please advise Best time of day caller can be reached: Patient advised that office/PCP has 24-48 business hours to return their call: [facility] 04-06-2022 History of Present illness Narrative (E11.3293, Z79.4) 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 without macular edema, with long-term current use of insulin ([facility]) (primary encounter diagnosis) Comment: Discussed stable retinopathy both eyes. Plan: Continue blood sugar control and monitor with primary care physician. (H40.1131) Primary open angle glaucoma of both eyes, mild stage Comment: Discussed stable intraocular pressure both eyes. Plan: OCT nerve both eyes done today and reviewed. Continue Timolol 0.5% both eyes twice a day. Continue Brimonidine 0.2% both eyes three times a day. Patient has refills. 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 Plan: Recommend frequent lubrication both eyes. Limitations discussed. (H04.123) Dry eye syndrome of bilateral lacrimal glands Comment: Discussed findings on exam. Plan: Recommend Artificial tears both eyes four times a day and as needed. Consider preservative free Artificial tears. Last visit: (H52.7) Refractive error Comment: Discussed change in Manifest refraction. 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 Plan: Reviewed possible worsening after Cataract extraction/IOL both eyes. Follow up for intraocular pressure both eyes in 6 mos and visual field 24-2 both eyes. I have confirmed and edited as necessary the relevant ophthalmic history, ROS, and the neuro exam findings as obtained by others. I have seen and examined this patient. I have discussed the case and the management of this patient's care with the Resident/Fellow, if applicable. I also have reviewed and agree with the assessment and plan as stated above and agree with all of its relevant components. Moses Acevedo MD April 06, 2022 1:47 PM documented in this encounter [facility] 01-06-2022 History of Present illness Narrative (Z96.1) Pseudophakia, both eyes (primary encounter diagnosis) (H25.813) Combined forms of age-related cataract of both eyes Comment: Discussed doing well one month post op s/p Cataract extraction/IOL right eye and six weeks s/p Cataract extraction/IOL left eye. Plan: Monitor off gtts. (H40.1131) Primary open angle glaucoma of both eyes, mild stage Comment: Discussed stable intraocular pressure both eyes. Plan: Continue Timolol 0.5% both eyes twice a day. Continue Brimonidine 0.2% both eyes three times a day. Patient has refills. 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 Plan: Recommend frequent lubrication both eyes. Limitations discussed. (H04.123) Dry eye syndrome of bilateral lacrimal glands Comment: Discussed findings on exam. Plan: Recommend Artificial tears both eyes four times a day and as needed. Consider preservative free Artificial tears. (H52.7) Refractive error Comment: Discussed change in Manifest refraction. Plan: Manifest refraction updated and dispensed. Previous History: (E11.3293, Z79.4) 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 without macular edema, with long-term current use of insulin ([facility]) Comment: Discussed stable retinopathy both eyes. Plan: Continue blood sugar control and monitor with primary care physician. 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 Plan: Reviewed possible worsening after Cataract extraction/IOL both eyes. Follow up for dilated fundus exam both eyes in 3-4 mos with [facility]. I have confirmed and edited as necessary the relevant ophthalmic history, ROS, and the neuro exam findings as obtained by others. I have seen and examined this patient. I have discussed the case and the management of this patient's care with the Resident/Fellow, if applicable. I also have reviewed and agree with the assessment and plan as stated above and agree with all of its relevant components. Moses Acevedo MD January 06, 2022 1:49 PM documented in this encounter [facility] 12-13-2021 Instructions Moses Acevedo MD - 12/13/2021 9:06 AM EDT LEFT EYE: Continue Prednisone acetate 1% left eye twice a day x one week then discontinue. Continue Ketorolac left eye twice a day x one week then discontinue . RIGHT EYE: Discontinue Vigamox drop. Continue Prednisone acetate 1% right eye four times a day x one week then decrease to twice a day x two weeks then discontinue. Continue Ketorolac right eye four times a day x one week then twice a day x two weeks then discontinue . Discontinue Shield right eye. Call if redness, pain, or change in vision occurs. documented in this encounter [facility] 12-13-2021 History of Present illness Narrative (Z96.1) Pseudophakia, both eyes (primary encounter diagnosis) (H25.813) Combined forms of age-related cataract of both eyes Comment: Discussed doing well one week post op s/p Cataract extraction/IOL right eye and three weeks s/p Cataract extraction/IOL left eye. Plan: LEFT EYE: Continue Prednisone acetate 1% left eye twice a day x one week then discontinue. Continue Ketorolac left eye twice a day x one week then discontinue . RIGHT EYE: Discontinue Vigamox drop. Continue Prednisone acetate 1% right eye four times a day x one week then decrease to twice a day x two weeks then discontinue. Continue Ketorolac right eye four times a day x one week then twice a day x two weeks then discontinue . Discontinue Shield right eye. Signs and symptoms of infection discussed with patient. (H40.1131) Primary open angle glaucoma of both eyes, mild stage Comment: Discussed stable intraocular pressure both eyes. Plan: Continue Timolol 0.5% both eyes twice a day. Continue Brimonidine 0.2% both eyes three times a day. Patient has refills. 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 Plan: Recommend frequent lubrication both eyes. Limitations discussed. (H04.123) Dry eye syndrome of bilateral lacrimal glands Comment: Discussed findings on exam. Plan: Recommend Artificial tears both eyes four times a day and as needed. Consider preservative free Artificial tears. Previous History: (E11.3293, Z79.4) 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 without macular edema, with long-term current use of insulin ([facility]) Comment: Discussed stable retinopathy both eyes. Plan: Continue blood sugar control and monitor with primary care physician. (H52.7) Refractive error Comment: Discussed change in Manifest refraction. 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 Plan: Reviewed possible worsening after Cataract extraction/IOL both eyes. Follow up for one month op s/p Cataract extraction/IOL both eyes; Manifest refraction both eyes. Dilated fundus exam both eyes in 4 mos with [facility]. I have confirmed and edited as necessary the relevant ophthalmic history, ROS, and the neuro exam findings as obtained by others. I have seen and examined this patient. I have discussed the case and the management of this patient's care with the Resident/Fellow, if applicable. I also have reviewed and agree with the assessment and plan as stated above and agree with all of its relevant components. Moses Acevedo MD December 13, 2021 8:59 AM documented in this encounter [facility] 12-07-2021 Instructions Moses Acevedo MD - 12/07/2021 9:25 AM EDT LEFT EYE: Continue Prednisone acetate 1% left eye twice a day x two weeks then discontinue. Continue Ketorolac left eye twice a day x two weeks then discontinue . RIGHT EYE: Continue Vigamox right eye four times a day. Pred acetate1% right eye four times a day. Ketorolac right eye four times a day. Shield right eye at bedtime. Call if redness, pain or change in vision occurs. documented in this encounter [facility] 12-07-2021 History of Present illness Narrative (Z96.1) Pseudophakia, both eyes (primary encounter diagnosis) (H25.813) Combined forms of age-related cataract of both eyes Comment: Discussed doing well one day post op s/p Cataract extraction/IOL right eye and two weeks s/p Cataract extraction/IOL left eye. Plan: LEFT EYE: Continue Prednisone acetate 1% left eye twice a day x two weeks then discontinue. Continue Ketorolac left eye twice a day x two weeks then discontinue . RIGHT EYE: Continue Vigamox right eye four times a day. Pred acetate1% right eye four times a day. Ketorolac right eye four times a day. Shield right eye at bedtime. Call if redness, pain or change in vision occurs. (H40.1131) Primary open angle glaucoma of both eyes, mild stage Comment: Discussed stable intraocular pressure both eyes. Plan: ContinueTimolol 0.5% both eyes twice a day. Continue Brimonidine 0.2% both eyes three times a day. Patient has refills. 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 Plan: Recommend frequent lubrication both eyes. Limitations discussed. (H04.123) Dry eye syndrome of bilateral lacrimal glands Comment: Discussed findings on exam. Plan: Recommend Artificial tears both eyes four times a day and as needed. Consider preservative free Artificial tears. Previous History: (E11.8123, Z79.4) 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 without macular edema, with long-term current use of insulin (HCC) Comment: Discussed stable retinopathy both eyes. Plan: Continue blood sugar control and monitor with primary care physician. (H52.7) Refractive error Comment: Discussed change in Manifest refraction. 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 Plan: Reviewed possible worsening after Cataract extraction/IOL both eyes. Follow up for one week post op s/p Cataract extraction/IOL right eye. I have confirmed and edited as necessary the relevant ophthalmic history, ROS, and the neuro exam findings as obtained by others. I have seen and examined this patient. I have discussed the case and the management of this patient's care with the Resident/Fellow, if applicable. I also have reviewed and agree with the assessment and plan as stated above and agree with all of its relevant components. Moses Acevedo MD December 07, 2021 9:22 AM documented in this encounter [facility] 12-06-2021 History of Past i llness Narrative Problem Noted Date Resolved Date Combined forms of age-related cataract of right eye 12/06/2021 12/06/2021 Combined forms of age-related cataract of left e ye 11/22/2021 11/22/2021 NS (nuclear sclerosis), unspecified laterality 1 11/05/2018 Diabetes mellitus type 2, insulin dependent 10/2205/12/2019 Open-angle glaucoma, moderate stage 05/05/2015 05/12/2019 NS (nuclear sclerosis) 05/05/2015 7 PSC (posterior subcapsular cataract), bilateral 05/05/2015 05/22/2017 documented as of this encounter (statuses as of 12/07/2021) [facility] History of Past illness Narrative* Problem Noted Date Resolved Date Combined forms of age-related cataract of right eye 12/06/2021 12/06/2021 Combined forms of age-related cataract of left e ye 11/22/2021 11/22/2021 NS (nuclear sclerosis), unspecified laterality 1 11/05/2018 Diabetes mellitus type 2, insulin dependent 10/2205/12/2019 Open-angle glaucoma, moderate stage 05/05/2015 05/12/2019 NS (nuclear sclerosis) 05/05/2015 7 PSC (posterior subcapsular cataract), bilateral 05/05/2015 05/22/2017 documented as of this encounter (statuses as of 12/13/2021) [facility] History of Past illness Narrative* Problem Noted Date Resolved Date Combined forms of age-related cataract of right eye 12/06/2021 12/06/2021 Combined forms of age-related cataract of left e ye 11/22/2021 11/22/2021 NS (nuclear sclerosis), unspecified laterality 1 11/05/2018 Diabetes mellitus type 2, insulin dependent 10/2205/12/2019 Open-angle glaucoma, moderate stage 05/05/2015 05/12/2019 NS (nuclear sclerosis) 05/05/2015 7 PSC (posterior subcapsular cataract), bilateral 05/05/2015 05/22/2017 documented as of this encounter (statuses as of 01/06/2022) [facility] History of Past illness Narrative* Problem Noted Date Resolved Date Combined forms of age-related cataract of right eye 12/06/2021 12/06/2021 Combined forms of age-related cataract of left e ye 11/22/2021 11/22/2021 NS (nuclear sclerosis), unspecified laterality 1 11/05/2018 Diabetes mellitus type 2, insulin dependent 10/2205/12/2019 Open-angle glaucoma, moderate stage 05/05/2015 05/12/2019 NS (nuclear sclerosis) 05/05/2015 7 PSC (posterior subcapsular cataract), bilateral 05/05/2015 05/22/2017 documented as of this encounter (statuses as of 04/06/2022) [facility] History of Past illness Narrative* Problem Noted Date Diagnosed Date Resolved Date Combined forms of age-relate d cataract of right eye 12/06/2021 12/06/2021 Combined forms of age-relate d cataract of left eye 11/22/2021 11/22/2021 NS (nuclear sclerosis), unsp ecified laterality 05/21/2017 11/05/2018 Diabetes mellitus type 2, insulin dependent 11/13/2016 05/12/2019 Open-angle glaucoma, moderate stage 05/05/2015 05/12/2019 NS (nuclear sclerosis) 05/05/201505/24 PSC (posterior subcapsular c ataract), bilateral 05/05/2015 05/22/2017 documented as of this encounter (statuses as of 04/11/2023) [facility] History of Past illness Narrative* Problem Noted Date Diagnosed Date Resolved Date Combined forms of age-relate d cataract of right eye 12/06/2021 12/06/2021 Combined forms of age-relate d cataract of left eye 11/22/2021 11/22/2021 NS (nuclear sclerosis), unsp ecified laterality 05/21/2017 11/05/2018 Diabetes mellitus type 2, insulin dependent 11/13/2016 05/12/2019 Open-angle glaucoma, moderate stage 05/05/2015 05/12/2019 NS (nuclear sclerosis) 05/05/201505/24 PSC (posterior subcapsular c ataract), bilateral 05/05/2015 05/22/2017 documented as of this encounter (statuses as of 10/26/2023) [facility] Miscellaneous Notes* Telephone Encounter - Gretchen Mario - 12/02/2021 11:13 AM EDT INTRAOCULAR LENS ORDER ATTN: [facility] PATIENTS NAME: Dameon Potter SURGERY DATE: 12/06/2021 EYE: OD SURGEON: Moses Acevedo MD LENS: [employer] [address] FREIGHT: Lei MODEL: [id number] POWER: + 16.5 ADDITIONAL NOTES: NO MOXIFLOXACIN OR CEFUROXIME due to allergies diabetes sleep apnea documented in this encounter[address]13-2022 Miscellaneous Notes* Telephone Encounter - Gretchen Mario - 12/02/2021 10:44 AM EDT Called and informed patient to arrive at [address] [place] [address] at 6:55 am for 12/06/21 surgery with Moses Acevedo MD. Also reminded patient to refrain from eating or drinking for 8 hours prior to arrival for surgery, and to begin eyedrops in the right eye on 12/04/21. Patient states understanding and is agreeable. documented in this [facility]05-11-2022 Instructions* Patient Instructions* Moses Acevedo MD - 11/30/2021 9:25 AM EDT Discontinue Vigamox drop. Continue Prednisone acetate 1% left eye four times a day x one week then decrease to twice a day x two weeks then discontinue. Continue Ketorolac left eye four times a day x one week then twice a day x two weeks then discontinue . Discontinue Shield left eye. Call if redness, pain, or change in vision occurs. documented in this [facility]05-11-2022 History of Present illness Narrative* Moses Acevedo MD - 11/30/2021 9:22 AM EDT (Z96.1) Pseudophakia of left eye (primary encounter diagnosis) (H25.813) Combined forms of age-related cataract of both eyes Comment: Discussed doing well one day post op s/p Cataract extraction/IOL left eye. Plan: LEFT EYE: Discontinue Vigamox drop. Continue Prednisone acetate 1% left eye four times a day x one week then decrease to twice a day x two weeks then discontinue. Continue Ketorolac left eye four times a day x one week then twice a day x two weeks then discontinue . Discontinue Shield left eye. Signs and symptoms of infection discussed with patient. RIGHT EYE: Cataract Presurgical Documentation Cataract: Right eye (OD) Patient reported symptoms: Associated symptoms Positive for: Blurred Vision, decreased vision, flashes Negative for: Eye Redness, foreign body sensation, itching, floaters, difficulty with reading, tearing, dryness, glare, burning Current Visual Acuity: Right Eye Distance CC 20/40 Left Eye Distance SC 20/20 Best Corrected Vision Left Eye 20/20 Glare Testing: Right Eye Off 20/50 Right Eye Low 20/80 Right Eye Medium 20/200 Right Eye High 20/500 Visual Function: Dameon Potter states that the decline in vision from the cataract impedes the ability to drive as well as other activities of daily living. Dameon Potter has confirmed that she is no longer able to function adequately on a day-to-day basis because of her current visual condition. Further, it is my medical opinion that the cataract is the primary cause, or at least a significantly contributory cause of her visual dysfunction. With uncomplicated cataract surgery and lens implantation, it is my expectation that her visual function and quality of life will improve, significantly. The risks, benefits, alternatives, personnel and complications of cataract surgery with lens implantation were discussed with Dameon Potter in detail. she appeared to understand and asked that I proceed with plans for surgery. (H40.1131) Primary open angle glaucoma of both eyes, mild stage Comment: Discussed increased intraocular pressure left eye as did not use Timolol or Alphagan this AM. Plan: Recommend resume Timolol 0.5% both eyes twice a day. Recommend resume Brimonidine 0.2% both eyes three times a day. Patient has refills. 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 Plan: Recommend frequent lubrication both eyes. (H04.123) Dry eye syndrome of bilateral lacrimal glands Comment: Discussed findings on exam. Plan: Recommend Artificial tears both eyes four times a day and as needed. Consider preservative free Artificial tears. Previous History: (E11.3293, Z79.4) 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 without macular edema, with long-term current use of insulin (HCC) Comment: Discussed stable retinopathy both eyes. Plan: Continue blood sugar control and monitor with primary care physician. (H52.7) Refractive error Comment: Discussed change in Manifest refraction. 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 Plan: Reviewed possible worsening after Cataract extraction/IOL both eyes. Follow up for Cataract extraction/IOL right eye Target -1.25 sphere Possible trypan blue. Possible [place]uygin ring. I have confirmed and edited as necessary the relevant ophthalmic history, ROS, and the neuro exam findings as obtained by others. I have seen and examined this patient. I have discussed the case and the management of this patient's care with the Resident/Fellow, if applicable. I also have reviewed and agree with the assessment and plan as stated above and agree withall of its relevant components. Moses Acevedo MD November 30, 2021 9:30 AM documented in this encounterSt[facility] Instructions* Patient Instructions* Moses Acevedo MD - 11/23/2021 8:50 AM EDT Use Vigamox left eye four times a day. Use Pred acetate 1% left eye four times a day. Use Ketorolac left eye four times a day. Wear Shield left eye at bedtime. Call if redness, pain, or change in vision occurs. Resume Timolol 0.5% both eyes twice a day. Resume Brimonidine 0.2% both eyes three times a day. documented in this encounterSt. [facility] History of Present illness Narrative* Moses Acevedo MD - 11/23/2021 8:44 AM EDT (Z96.1) Pseudophakia of left eye (primary encounter diagnosis) (H25.813) Combined forms of age-related cataract of both eyes Comment: Discussed doing well one day post op s/p Cataract extraction/IOL left eye. Plan: Use Vigamox left eye four times a day. Use Pred acetate 1% left eye four times a day. Use Ketorolac left eye four times a day. Patient to wear Shield left eye at bedtime. Patient to call if redness pain or change in vision occurs. (H40.1131) Primary open angle glaucoma of both eyes, mild stage Comment: Discussed increased intraocular pressure left eye as did not use Timolol or Alphagan this AM. Plan: Recommend resume Timolol 0.5% both eyes twice a day. Recommend resume Brimonidine 0.2% both eyes three times a day. Patient has refills. 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 Plan: Recommend frequent lubrication both eyes. (H04.123) Dry eye syndrome of bilateral lacrimal glands Comment: Discussed findings on exam. Plan: Recommend Artificial tears both eyes four times a day and as needed. Consider preservative free Artificial tears. Previous History: (E11.3293, Z79.4) 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 without macular edema, with long-term current use of insulin ([facility]) Comment: Discussed stable retinopathy both eyes. Plan: Continue blood sugar control and monitor with primary care physician. (H52.7) Refractive error Comment: Discussed change in Manifest refraction. 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 Plan: Reviewed possible worsening after Cataract extraction/IOL both eyes. Follow up for one week post op with Manifest refraction left eye. I have confirmed and edited as necessary the relevant ophthalmic history, ROS, and the neuro exam findings as obtained by others. I have seen and examined this patient. I have discussed the case and the management of this patient's care with the Resident/Fellow, if applicable. I also have reviewed and agree with the assessment and plan as stated above and agree withall of its relevant components. Moses Acevedo MD November 23, 2021 8:45 AM documented in this encounterSt. [facility] History of Past illness Narrative* Problem Noted Date Resolved Date Combined forms of age-related cataract of left e ye 11/22/2021 11/22/2021 NS (nuclear sclerosis), unspecified laterality 1 11/05/2018 Diabetes mellitus type 2, insulin dependent 10/2205/12/2019 Open-angle glaucoma, moderate stage 05/05/2015 05/12/2019 NS (nuclear sclerosis) 05/05/2015 7 PSC (posterior subcapsular cataract), bilateral 05/05/2015 05/22/2017 documented as of this encounter (statuses as of 11/23/2021) [facility] of Past illness Narrative* Problem Noted Date Resolved Date Combined forms of age-related cataract of left fang almeida 11/22/2021 11/22/2021 NS (nuclear sclerosis), unspecified laterality 1 11/05/2018 Diabetes mellitus type 2, insulin dependent 10/2205/12/2019 Open-angle glaucoma, moderate stage 05/05/2015 05/12/2019 NS (nuclear sclerosis) 05/05/2015 7 PSC (posterior subcapsular cataract), bilateral 05/05/2015 05/22/2017 documented as of this encounter (statuses as of 11/30/2021) [facility] of Past illness Narrative* Problem Noted Date Resolved Date Combined forms of age-related cataract of left fang almeida 11/22/2021 11/22/2021 NS (nuclear sclerosis), unspecified laterality 1 11/05/2018 Diabetes mellitus type 2, insulin dependent 10/2205/12/2019 Open-angle glaucoma, moderate stage 05/05/2015 05/12/2019 NS (nuclear sclerosis) 05/05/2015 7 PSC (posterior subcapsular cataract), bilateral 05/05/2015 05/22/2017 documented as of this encounter (statuses as of 12/02/2021) [facility] Miscellaneous Notes* Telephone Encounter - Gretchen Fabiano - 11/18/2021 8:09 AM EDT INTRAOCULAR LENS ORDER ATTN: ASTRID / DLEFINO [facility] PATIENTS NAME: Dameon Potter SURGERY DATE: 11/22/2021 EYE: OS SURGEON: Moses Acevedo MD LENS: [employer] [address] FREIGHT: Lei MODEL: [id number] POWER: + 15.5 ADDITIONAL NOTES: NO MOXIFLOXACIN OR CEFUROXIME due to allergies diabetes sleep apnea documented in this encounterSt. [facility]04-28-2022 Miscellaneous Notes* Telephone Encounter - Gretchen Mario - 11/17/2021 2:38 PM EDT Attempted to contact patient to inform to arrive at [address] [place] [address], [address] at 6:45 am for 11/22/21 surgery with Moses Acevedo MD, to refrain from eating or drinking for 8 hours prior to arrival for surgery, and to begin the eyedrops in the left eye on 11/20/21. Do not use prednisolone acetate until after surgery. Left message on machine to call with any questions or concerns. documented in this encounterSt. [facility]04-[facility]-2022 Miscellaneous Notes* Telephone Encounter - Sarah Haddad - 10/21/2021 2:57 PM EDT Left voicemail to remind patient she has an appointment in our [place] office at [address], [address], on Sunday10/24/21 at 8:00 am and to call our office at [phone] if any questions or if unable to keep the appointment. documented in this encounterSt. [facility]10-30-2017 History of Past illness Narrative* Problem Noted Date Resolved Date NS (nuclear sclerosis), unspecified laterality 1 11/05/2018 Diabetes mellitus type 2, insulin dependent 10/2205/12/2019 Open-angle glaucoma, moderate stage 05/05/2015 05/12/2019 NS (nuclear sclerosis) 05/05/2015 7 PSC (posterior subcapsular cataract), bilateral 05/05/2015 05/22/2017 documented as of this encounter (statuses as of 10/21/2021) [facility] of Past illness Narrative* Problem Noted Date Resolved Date NS (nuclear sclerosis), unspecified laterality 1 11/05/2018 Diabetes mellitus type 2, insulin dependent 10/2205/12/2019 Open-angle glaucoma, moderate stage 05/05/2015 05/12/2019 NS (nuclear sclerosis) 05/05/2015 7 PSC (posterior subcapsular cataract), bilateral 05/05/2015 05/22/2017 documented as of this encounter (statuses as of 11/17/2021) [facility] of Past illness Narrative* Problem Noted Date Resolved Date NS (nuclear sclerosis), unspecified laterality 1 11/05/2018 Diabetes mellitus type 2, insulin dependent 10/2205/12/2019 Open-angle glaucoma, moderate stage 05/05/2015 05/12/2019 NS (nuclear sclerosis) 05/05/2015 7 PSC (posterior subcapsular cataract), bilateral 05/05/2015 05/22/2017 documented as of this encounter (statuses as of 11/18/2021) 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* Diagnosis Pseudophakia of left eye- Primary Lens replaced by other means Combined forms of age-related cataract of both eyes Other and combined forms of senile cataract Combined forms of age-related cataract of both eyes Other and combined forms of senile cataract 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 Tear film insufficiency, unspecified [facility]* Diagnosis Pseudophakia, both eyes- Primary Lens replaced by other means Combined forms of age-related cataract of both eyes Other and combined forms of senile cataract Primary open angle glaucoma of both eyes, mild stage 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 Tear film insufficiency, unspecified [facility]* Diagnosis Pseudophakia, both eyes- Primary Lens replaced by other means Combined forms of age-related cataract of both eyes Other and combined forms of senile cataract Primary open angle glaucoma of both eyes, mild stage 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 Tear film insufficiency, unspecified Refractive error Unspecified disorder of refraction and accommodation documented in this encounter [facility]* Diagnosis 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 without macular edema, with long-term current use of insulin (HCC)- Primary Primary open angle glaucoma of both eyes, mild stage 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 Tear film insufficiency, unspecified [facility]* Diagnosis 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) [facility] Diagnosis Lymphedema- Primary Other noninfectious lymphedema [facility]* Diagnosis Endometrial cancer (CMS/HCC) (HCC)- Primary Malignant neoplasm of corpus uteri, except isthmus Malignant neoplasm of body of uterus, unspecified site ([facility]) [facility]* Diagnosis Lymphedema Other noninfectious lymphedema [facility]* Diagnosis Lymphedema- Primary Other noninfectious lymphedema Generalized edema Edema documented [facility]* Diagnosis Lymphedema Other noninfectious lymphedema [facility]* Diagnosis Lymphedema Other noninfectious lymphedema [facility]* Diagnosis Lymphedema- Primary Other noninfectious lymphedema documented in this encounter [facility]* Diagnosis Type 2 diabetes mellitus with hyperglycemia, with long-term current use of insulin (CMS/HCC) (HCC)- Primary 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 without macular edema, with long-term current use of insulin ([facility]) Primary hypertension Unspecified essential hypertension Hyperlipidemia associated with type 2 diabetes mellitus ([facility]) Class 3 severe obesity due to excess calories with serious comorbidity and body mass index (BMI) of 45.0 to 49.9 in adult ([facility]) Acquired hypothyroidism Unspecified hypothyroidism Insulin resistance Other abnormal glucose [facility]* Diagnosis Lymphedema Other noninfectious lymphedema Generalized edema Edema [facility]* Diagnosis Lymphedema- Primary Other noninfectious lymphedema [facility] Diagnosis Lymphedema- Primary Other noninfectious lymphedema [facility]* Diagnosis Endometrial cancer ([facility]/HCC) ([facility])- Primary Malignant neoplasm of corpus uteri, except isthmus [facility]* Diagnosis Lymphedema- Primary Other noninfectious lymphedema [facility]* Diagnosis Lymphedema Other noninfectious lymphedema documented in this encounter [facility]* Diagnosis Uncontrolled type 2 diabetes mellitus with hyperglycemia, with long-term current use of insulin ([facility]) [facility]* Diagnosis Non-pressure chronic ulcer left lower leg, limited to breakdown skin ([facility])- Primary [facility]* Diagnosis Primary open angle glaucoma of both eyes, mild stage- Primary 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 and macular edema, without long-term current use of insulin ([facility]) 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 Tear film insufficiency, unspecified Refractive error Unspecified disorder of refraction and accommodation Dermatochalasis of upper and lower eyelids of both eyes [facility]* Diagnosis Non-pressure chronic ulcer left lower leg, 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)- Primary [facility]* Diagnosis Non-pressure chronic ulcer left lower leg, 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)- Primary Lymphedema Other noninfectious lymphedema [facility]* Diagnosis Lymphedema Other noninfectious lymphedema [facility]* Diagnosis Lymphedema- Primary Other noninfectious lymphedema documented in this encounter [facility]* Diagnosis 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 Type 2 diabetes mellitus with hyperglycemia, with long-term current use of insulin ([facility]) Mixed hyperlipidemia Primary hypertension Unspecified essential hypertension documented in this encounter [facility] note* Diagnosis Lymphedema- Primary Other noninfectious lymphedema documented in this encounter [facility] note* Diagnosis Lymphedema Other noninfectious lymphedema documented in this encounter [facility] note* Diagnosis Lymphedema- Primary Other noninfectious lymphedema documented in this encounter [facility] note* Diagnosis Lymphedema Other noninfectious lymphedema [facility]* Diagnosis Lymphedema Other noninfectious lymphedema documented in this encounter [facility] note* Diagnosis Lymphedema Other noninfectious lymphedema documented in this encounter [facility] note* Diagnosis Endometrial cancer (CMS/HCC) (HCC)- Primary Malignant neoplasm of corpus uteri, except isthmus documented in this encounter [facility] note* Diagnosis Lymphedema Other noninfectious lymphedema documented in this encounter [facility] note* Diagnosis Lymphedema- Primary Other noninfectious lymphedema documented in this encounter [facility] note* Diagnosis Lymphedema- Primary Other noninfectious lymphedema Generalized edema Edema documented in this encounter [facility] note* Diagnosis Primary open angle glaucoma of both eyes, mild stage- Primary 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 Tear film insufficiency, unspecified Cortical cataract of both eyes Unspecified cataract [facility]* Diagnosis Endometrial cancer (CMS/HCC) (HCC)- Primary Malignant neoplasm of corpus uteri, except isthmus Malignant neoplasm of body of uterus, unspecified site ([facility]) documented in this encounter [facility] note* Diagnosis Type 2 diabetes mellitus with hyperglycemia, with long-term current use of insulin (HCC)- Primary Primary hypertension Unspecified essential hypertension Hyperlipidemia associated with type 2 diabetes mellitus (HCC) (HCC) Class 3 severe obesity due to excess calories with serious comorbidity and body mass index (BMI) of 45.0 to 49.9 in adult (HCC) Acquired hypothyroidism Unspecified hypothyroidism Insulin resistance Other abnormal glucose 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 and macular edema, with long-term current use of insulin ([facility]) [facility]* Diagnosis Lymphedema- Primary Other noninfectious lymphedema [facility]* Diagnosis Hypertensive retinopathy, bilateral- Primary 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 macular edema, with long-term current use of insulin ([facility]) documented [facility] encounter [facility]* Diagnosis Lymphedema of both lower extremities documented in this encounter [facility] note* Diagnosis Endometrial cancer (CMS/HCC) (HCC) Malignant neoplasm of corpus uteri, except isthmus [facility]* Diagnosis Lymphedema- Primary Other noninfectious lymphedema [facility]* Diagnosis Lymphedema Other noninfectious lymphedema [facility]* Diagnosis Lymphedema- Primary Other noninfectious lymphedema [facility]* Diagnosis Lymphedema Other noninfectious lymphedema documented in this encounter [facility] note* Diagnosis Lymphedema of both lower extremities- Primary [facility]* Diagnosis Lymphedema of both lower extremities [facility]* Diagnosis Vaginal discharge- Primary Leukorrhea, not specified as infective Endometrial cancer (CMS/HCC) (HCC) Malignant neoplasm of corpus uteri, except isthmus Obesity with body mass index greater than 30 Lymphedema Other noninfectious lymphedema Malignant neoplasm of body of uterus, unspecified site ([facility]) [facility]* Diagnosis Essential (primary) hypertension Unspecified essential hypertension Cardiac murmur, unspecified [facility]* Diagnosis Lymphedema of both lower extremities- Primary [facility]* Diagnosis Type 2 diabetes mellitus with hyperglycemia, with long-term current use of insulin (HCC)- Primary Primary hypertension Unspecified essential hypertension Hyperlipidemia associated with type 2 diabetes mellitus (HCC) (HCC) Class 3 severe obesity due to excess calories with serious comorbidity and body mass index (BMI) of 40.0 to 44.9 in adult (HCC) Acquired hypothyroidism Unspecified hypothyroidism Insulin resistance Other abnormal glucose [facility]* Diagnosis Lymphedema of both lower extremities [facility]* Diagnosis Primary open angle glaucoma of both eyes, mild stage- Primary 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 macular edema, with long-term current use of insulin ([facility]) 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 Tear film insufficiency, unspecified Refractive error Unspecified disorder of refraction and accommodation Dermatochalasis of upper and lower eyelids of both eyes [facility]* Diagnosis Lymphedema Other noninfectious lymphedema [facility] Diagnosis Essential (primary) hypertension- Primary Unspecified essential hypertension Cardiac murmur, unspecified Essential (primary) hypertension Unspecified essential hypertension Cardiac murmur, unspecified [facility] Diagnosis Lymphedema- Primary Other noninfectious lymphedema documented [facility] Diagnosis Endometrial cancer ([facility]) ([facility])- Primary Malignant neoplasm of corpus uteri, except isthmus [facility]* Diagnosis Lymphedema- Primary Other noninfectious lymphedema documented [facility] Diagnosis Lymphedema [I89.0 (ICD-10-CM)] Other noninfectious lymphedema documented [facility]* Diagnosis Hyperglycemia- Primary Other abnormal glucose Hyperglycemia Other abnormal glucose Acute cystitis with hematuria RADHA (obstructive sleep apnea) Obstructive sleep apnea (adult) (pediatric) Acute on chronic diastolic heart failure (HCC) Acute on chronic diastolic heart failure Persistent atrial fibrillation (HCC) Atrial fibrillation Delirium Other alteration of consciousness Debility Unspecified debility Memory loss Declining functional status Weight loss Loss of weight Severe malnutrition ([facility]) (HCC) Nutritional marasmus documented [facility]* Diagnosis Persistent atrial fibrillation (HCC)- Primary Atrial fibrillation Type 2 diabetes mellitus with hyperglycemia, with long-term current use of insulin (HCC) Cognitive decline Debility Unspecified debility Essential hypertension, benign Moderate aortic stenosis Aortic valve disorders Mixed hyperlipidemia Primary open angle glaucoma of both eyes, mild stage Acquired hypothyroidism Unspecified hypothyroidism Vitamin D deficiency [facility] Diagnosis Persistent atrial fibrillation (HCC)- Primary Atrial fibrillation Type 2 diabetes mellitus with hyperglycemia, with long-term current use of insulin (HCC) Cognitive decline Debility Unspecified debility Essential hypertension, benign Moderate aortic stenosis Aortic valve disorders Mixed hyperlipidemia Primary open angle glaucoma of both eyes, mild stage Acquired hypothyroidism Unspecified hypothyroidism Vitamin D deficiency Debility- Primary Unspecified debility Type 2 diabetes mellitus with hyperglycemia, with long-term current use of insulin (HCC) Cognitive decline Vitamin D deficiency Moderate aortic stenosis Aortic valve disorders Essential hypertension, benign Persistent atrial fibrillation (HCC) Atrial fibrillation Primary open angle glaucoma of both eyes, mild stage Endometrial cancer (CMS/HCC) (HCC) Malignant neoplasm of corpus uteri, except isthmus Lymphedema of both lower extremities Morbid obesity (HCC) Morbid obesity Acquired hypothyroidism Unspecified hypothyroidism Moderate recurrent major depression (HCC) Major depressive disorder, recurrent episode, moderate Mixed hyperlipidemia [facility] Diagnosis Persistent atrial fibrillation (HCC)- Primary Atrial fibrillation Type 2 diabetes mellitus with hyperglycemia, with long-term current use of insulin (HCC) Cognitive decline Debility Unspecified debility Essential hypertension, benign Moderate aortic stenosis Aortic valve disorders Mixed hyperlipidemia Primary open angle glaucoma of both eyes, mild stage Acquired hypothyroidism Unspecified hypothyroidism Vitamin D deficiency Debility- Primary Unspecified debility Type 2 diabetes mellitus with hyperglycemia, with long-term current use of insulin (HCC) Cognitive decline Vitamin D deficiency Moderate aortic stenosis Aortic valve disorders Essential hypertension, benign Persistent atrial fibrillation (HCC) Atrial fibrillation Primary open angle glaucoma of both eyes, mild stage Endometrial cancer (CMS/HCC) (HCC) Malignant neoplasm of corpus uteri, except isthmus Lymphedema of both lower extremities Morbid obesity (HCC) Morbid obesity Acquired hypothyroidism Unspecified hypothyroidism Moderate recurrent major depression (HCC) Major depressive disorder, recurrent episode, moderate Mixed hyperlipidemia Type 2 diabetes mellitus with hyperglycemia, with long-term current use of insulin (HCC)- Primary Debility Unspecified debility Poor sleep hygiene Other specific disorder of sleep of nonorganic origin [facility] Diagnosis Persistent atrial fibrillation (HCC)- Primary Atrial fibrillation Type 2 diabetes mellitus with hyperglycemia, with long-term current use of insulin (HCC) Cognitive decline Debility Unspecified debility Essential hypertension, benign Moderate aortic stenosis Aortic valve disorders Mixed hyperlipidemia Primary open angle glaucoma of both eyes, mild stage Acquired hypothyroidism Unspecified hypothyroidism Vitamin D deficiency Debility- Primary Unspecified debility Type 2 diabetes mellitus with hyperglycemia, with long-term current use of insulin (HCC) Cognitive decline Vitamin D deficiency Moderate aortic stenosis Aortic valve disorders Essential hypertension, benign Persistent atrial fibrillation (HCC) Atrial fibrillation Primary open angle glaucoma of both eyes, mild stage Endometrial cancer (CMS/HCC) (HCC) Malignant neoplasm of corpus uteri, except isthmus Lymphedema of both lower extremities Morbid obesity (HCC) Morbid obesity Acquired hypothyroidism Unspecified hypothyroidism Moderate recurrent major depression (HCC) Major depressive disorder, recurrent episode, moderate Mixed hyperlipidemia Type 2 diabetes mellitus with hyperglycemia, with long-term current use of insulin (HCC)- Primary Debility Unspecified debility Poor sleep hygiene Other specific disorder of sleep of nonorganic origin Abnormal weight loss Loss of weight Other malaise Malignant neoplasm of endometrium (HCC) Malignant neoplasm of corpus uteri, except isthmus Other amnesia [facility] Diagnosis Persistent atrial fibrillation (HCC)- Primary Atrial fibrillation Type 2 diabetes mellitus with hyperglycemia, with long-term current use of insulin (HCC) Cognitive decline Debility Unspecified debility Essential hypertension, benign Moderate aortic stenosis Aortic valve disorders Mixed hyperlipidemia Primary open angle glaucoma of both eyes, mild stage Acquired hypothyroidism Unspecified hypothyroidism Vitamin D deficiency Debility- Primary Unspecified debility Type 2 diabetes mellitus with hyperglycemia, with long-term current use of insulin (HCC) Cognitive decline Vitamin D deficiency Moderate aortic stenosis Aortic valve disorders Essential hypertension, benign Persistent atrial fibrillation (HCC) Atrial fibrillation Primary open angle glaucoma of both eyes, mild stage Endometrial cancer (CMS/HCC) (HCC) Malignant neoplasm of corpus uteri, except isthmus Lymphedema of both lower extremities Morbid obesity (HCC) Morbid obesity Acquired hypothyroidism Unspecified hypothyroidism Moderate recurrent major depression (HCC) Major depressive disorder, recurrent episode, moderate Mixed hyperlipidemia Type 2 diabetes mellitus with hyperglycemia, with long-term current use of insulin (HCC)- Primary Debility Unspecified debility Poor sleep hygiene Other specific disorder of sleep of nonorganic origin Lymphedema of both lower extremities- Primary Type 2 diabetes mellitus with hyperglycemia, with long-term current use of insulin (HCC) Vitamin D deficiency [facility] Diagnosis Persistent atrial fibrillation (HCC)- Primary Atrial fibrillation Type 2 diabetes mellitus with hyperglycemia, with long-term current use of insulin (HCC) Cognitive decline Debility Unspecified debility Essential hypertension, benign Moderate aortic stenosis Aortic valve disorders Mixed hyperlipidemia Primary open angle glaucoma of both eyes, mild stage Acquired hypothyroidism Unspecified hypothyroidism Vitamin D deficiency Debility- Primary Unspecified debility Type 2 diabetes mellitus with hyperglycemia, with long-term current use of insulin (HCC) Cognitive decline Vitamin D deficiency Moderate aortic stenosis Aortic valve disorders Essential hypertension, benign Persistent atrial fibrillation (HCC) Atrial fibrillation Primary open angle glaucoma of both eyes, mild stage Endometrial cancer (CMS/HCC) (HCC) Malignant neoplasm of corpus uteri, except isthmus Lymphedema of both lower extremities Morbid obesity (HCC) Morbid obesity Acquired hypothyroidism Unspecified hypothyroidism Moderate recurrent major depression (HCC) Major depressive disorder, recurrent episode, moderate Mixed hyperlipidemia Type 2 diabetes mellitus with hyperglycemia, with long-term current use of insulin (HCC)- Primary Debility Unspecified debility Poor sleep hygiene Other specific disorder of sleep of nonorganic origin Lymphedema of both lower extremities- Primary Type 2 diabetes mellitus with hyperglycemia, with long-term current use of insulin (HCC) Vitamin D deficiency Type 2 diabetes mellitus with hyperglycemia, with long-term current use of insulin (HCC)- Primary Lymphedema of both lower extremities documented in this encounter [facility]* Diagnosis Persistent atrial fibrillation (HCC)- Primary Atrial fibrillation Type 2 diabetes mellitus with hyperglycemia, with long-term current use of insulin (HCC) Cognitive decline Debility Unspecified debility Essential hypertension, benign Moderate aortic stenosis Aortic valve disorders Mixed hyperlipidemia Primary open angle glaucoma of both eyes, mild stage Acquired hypothyroidism Unspecified hypothyroidism Vitamin D deficiency Debility- Primary Unspecified debility Type 2 diabetes mellitus with hyperglycemia, with long-term current use of insulin (HCC) Cognitive decline Vitamin D deficiency Moderate aortic stenosis Aortic valve disorders Essential hypertension, benign Persistent atrial fibrillation (HCC) Atrial fibrillation Primary open angle glaucoma of both eyes, mild stage Endometrial cancer (CMS/HCC) (HCC) Malignant neoplasm of corpus uteri, except isthmus Lymphedema of both lower extremities Morbid obesity (HCC) Morbid obesity Acquired hypothyroidism Unspecified hypothyroidism Moderate recurrent major depression (HCC) Major depressive disorder, recurrent episode, moderate Mixed hyperlipidemia Type 2 diabetes mellitus with hyperglycemia, with long-term current use of insulin (HCC)- Primary Debility Unspecified debility Poor sleep hygiene Other specific disorder of sleep of nonorganic origin Lymphedema of both lower extremities- Primary Type 2 diabetes mellitus with hyperglycemia, with long-term current use of insulin (HCC) Vitamin D deficiency Type 2 diabetes mellitus with hyperglycemia, with long-term current use of insulin (HCC)- Primary Lymphedema of both lower extremities Debility- Primary Unspecified debility Essential hypertension, benign Persistent atrial fibrillation (HCC) Atrial fibrillation Type 2 diabetes mellitus with hyperglycemia, with long-term current use of insulin (HCC) Cognitive decline Cellulitis of lower extremity, unspecified laterality Weight gain Other symptoms concerning nutrition, metabolism, and development Poor sleep hygiene Other specific disorder of sleep of nonorganic origin Mild intermittent asthma without complication Moderate aortic stenosis Aortic valve disorders Endometrial cancer (CMS/HCC) (HCC) Malignant neoplasm of corpus uteri, except isthmus Lymphedema of both lower extremities Vitamin D deficiency Acquired hypothyroidism Unspecified hypothyroidism Primary open angle glaucoma of both eyes, mild stage Moderate recurrent major depression (HCC) Major depressive disorder, recurrent episode, moderate Mixed hyperlipidemia documented in this encounter [facility]* Diagnosis Persistent atrial fibrillation (HCC)- Primary Atrial fibrillation Type 2 diabetes mellitus with hyperglycemia, with long-term current use of insulin (HCC) Cognitive decline Debility Unspecified debility Essential hypertension, benign Moderate aortic stenosis Aortic valve disorders Mixed hyperlipidemia Primary open angle glaucoma of both eyes, mild stage Acquired hypothyroidism Unspecified hypothyroidism Vitamin D deficiency Debility- Primary Unspecified debility Type 2 diabetes mellitus with hyperglycemia, with long-term current use of insulin (HCC) Cognitive decline Vitamin D deficiency Moderate aortic stenosis Aortic valve disorders Essential hypertension, benign Persistent atrial fibrillation (HCC) Atrial fibrillation Primary open angle glaucoma of both eyes, mild stage Endometrial cancer (CMS/HCC) (HCC) Malignant neoplasm of corpus uteri, except isthmus Lymphedema of both lower extremities Morbid obesity (HCC) Morbid obesity Acquired hypothyroidism Unspecified hypothyroidism Moderate recurrent major depression (HCC) Major depressive disorder, recurrent episode, moderate Mixed hyperlipidemia Type 2 diabetes mellitus with hyperglycemia, with long-term current use of insulin (HCC)- Primary Debility Unspecified debility Poor sleep hygiene Other specific disorder of sleep of nonorganic origin Lymphedema of both lower extremities- Primary Type 2 diabetes mellitus with hyperglycemia, with long-term current use of insulin (HCC) Vitamin D deficiency Type 2 diabetes mellitus with hyperglycemia, with long-term current use of insulin (HCC)- Primary Lymphedema of both lower extremities Debility- Primary Unspecified debility Essential hypertension, benign Persistent atrial fibrillation (HCC) Atrial fibrillation Type 2 diabetes mellitus with hyperglycemia, with long-term current use of insulin (HCC) Cognitive decline Cellulitis of lower extremity, unspecified laterality Weight gain Other symptoms concerning nutrition, metabolism, and development Poor sleep hygiene Other specific disorder of sleep of nonorganic origin Mild intermittent asthma without complication Moderate aortic stenosis Aortic valve disorders Endometrial cancer (CMS/HCC) (HCC) Malignant neoplasm of corpus uteri, except isthmus Lymphedema of both lower extremities Vitamin D deficiency Acquired hypothyroidism Unspecified hypothyroidism Primary open angle glaucoma of both eyes, mild stage Moderate recurrent major depression (HCC) Major depressive disorder, recurrent episode, moderate Mixed hyperlipidemia Persistent atrial fibrillation (HCC)- Primary Atrial fibrillation Type 2 diabetes mellitus with hyperglycemia, with long-term current use of insulin (HCC) documented in this encounter [facility] Diagnosis Persistent atrial fibrillation (HCC)- Primary Atrial fibrillation Type 2 diabetes mellitus with hyperglycemia, with long-term current use of insulin (HCC) Cognitive decline Debility Unspecified debility Essential hypertension, benign Moderate aortic stenosis Aortic valve disorders Mixed hyperlipidemia Primary open angle glaucoma of both eyes, mild stage Acquired hypothyroidism Unspecified hypothyroidism Vitamin D deficiency Debility- Primary Unspecified debility Type 2 diabetes mellitus with hyperglycemia, with long-term current use of insulin (HCC) Cognitive decline Vitamin D deficiency Moderate aortic stenosis Aortic valve disorders Essential hypertension, benign Persistent atrial fibrillation (HCC) Atrial fibrillation Primary open angle glaucoma of both eyes, mild stage Endometrial cancer (CMS/HCC) (HCC) Malignant neoplasm of corpus uteri, except isthmus Lymphedema of both lower extremities Morbid obesity (HCC) Morbid obesity Acquired hypothyroidism Unspecified hypothyroidism Moderate recurrent major depression (HCC) Major depressive disorder, recurrent episode, moderate Mixed hyperlipidemia Type 2 diabetes mellitus with hyperglycemia, with long-term current use of insulin (HCC)- Primary Debility Unspecified debility Poor sleep hygiene Other specific disorder of sleep of nonorganic origin Lymphedema of both lower extremities- Primary Type 2 diabetes mellitus with hyperglycemia, with long-term current use of insulin (HCC) Vitamin D deficiency Type 2 diabetes mellitus with hyperglycemia, with long-term current use of insulin (HCC)- Primary Lymphedema of both lower extremities Debility- Primary Unspecified debility Essential hypertension, benign Persistent atrial fibrillation (HCC) Atrial fibrillation Type 2 diabetes mellitus with hyperglycemia, with long-term current use of insulin (HCC) Cognitive decline Cellulitis of lower extremity, unspecified laterality Weight gain Other symptoms concerning nutrition, metabolism, and development Poor sleep hygiene Other specific disorder of sleep of nonorganic origin Mild intermittent asthma without complication Moderate aortic stenosis Aortic valve disorders Endometrial cancer (CMS/HCC) (HCC) Malignant neoplasm of corpus uteri, except isthmus Lymphedema of both lower extremities Vitamin D deficiency Acquired hypothyroidism Unspecified hypothyroidism Primary open angle glaucoma of both eyes, mild stage Moderate recurrent major depression (HCC) Major depressive disorder, recurrent episode, moderate Mixed hyperlipidemia Persistent atrial fibrillation (HCC)- Primary Atrial fibrillation Type 2 diabetes mellitus with hyperglycemia, with long-term current use of insulin (HCC) Endometrial cancer (CMS/HCC) (HCC)- Primary Malignant neoplasm of corpus uteri, except isthmus Multiple lung nodules Other diseases of lung, not elsewhere classified [facility] Diagnosis Persistent atrial fibrillation (HCC)- Primary Atrial fibrillation Type 2 diabetes mellitus with hyperglycemia, with long-term current use of insulin (HCC) Cognitive decline Debility Unspecified debility Essential hypertension, benign Moderate aortic stenosis Aortic valve disorders Mixed hyperlipidemia Primary open angle glaucoma of both eyes, mild stage Acquired hypothyroidism Unspecified hypothyroidism Vitamin D deficiency Debility- Primary Unspecified debility Type 2 diabetes mellitus with hyperglycemia, with long-term current use of insulin (HCC) Cognitive decline Vitamin D deficiency Moderate aortic stenosis Aortic valve disorders Essential hypertension, benign Persistent atrial fibrillation (HCC) Atrial fibrillation Primary open angle glaucoma of both eyes, mild stage Endometrial cancer (CMS/HCC) (HCC) Malignant neoplasm of corpus uteri, except isthmus Lymphedema of both lower extremities Morbid obesity (HCC) Morbid obesity Acquired hypothyroidism Unspecified hypothyroidism Moderate recurrent major depression (HCC) Major depressive disorder, recurrent episode, moderate Mixed hyperlipidemia Type 2 diabetes mellitus with hyperglycemia, with long-term current use of insulin (HCC)- Primary Debility Unspecified debility Poor sleep hygiene Other specific disorder of sleep of nonorganic origin Lymphedema of both lower extremities- Primary Type 2 diabetes mellitus with hyperglycemia, with long-term current use of insulin (HCC) Vitamin D deficiency Type 2 diabetes mellitus with hyperglycemia, with long-term current use of insulin (HCC)- Primary Lymphedema of both lower extremities Debility- Primary Unspecified debility Essential hypertension, benign Persistent atrial fibrillation (HCC) Atrial fibrillation Type 2 diabetes mellitus with hyperglycemia, with long-term current use of insulin (HCC) Cognitive decline Cellulitis of lower extremity, unspecified laterality Weight gain Other symptoms concerning nutrition, metabolism, and development Poor sleep hygiene Other specific disorder of sleep of nonorganic origin Mild intermittent asthma without complication Moderate aortic stenosis Aortic valve disorders Endometrial cancer (CMS/HCC) (HCC) Malignant neoplasm of corpus uteri, except isthmus Lymphedema of both lower extremities Vitamin D deficiency Acquired hypothyroidism Unspecified hypothyroidism Primary open angle glaucoma of both eyes, mild stage Moderate recurrent major depression (HCC) Major depressive disorder, recurrent episode, moderate Mixed hyperlipidemia Persistent atrial fibrillation (HCC)- Primary Atrial fibrillation Type 2 diabetes mellitus with hyperglycemia, with long-term current use of insulin (HCC) Endometrial cancer (CMS/HCC) (HCC)- Primary Malignant neoplasm of corpus uteri, except isthmus Multiple lung nodules Other diseases of lung, not elsewhere classified documented in this encounter [facility]* Diagnosis Persistent atrial fibrillation (HCC)- Primary Atrial fibrillation Type 2 diabetes mellitus with hyperglycemia, with long-term current use of insulin (HCC) Cognitive decline Debility Unspecified debility Essential hypertension, benign Moderate aortic stenosis Aortic valve disorders Mixed hyperlipidemia Primary open angle glaucoma of both eyes, mild stage Acquired hypothyroidism Unspecified hypothyroidism Vitamin D deficiency Debility- Primary Unspecified debility Type 2 diabetes mellitus with hyperglycemia, with long-term current use of insulin (HCC) Cognitive decline Vitamin D deficiency Moderate aortic stenosis Aortic valve disorders Essential hypertension, benign Persistent atrial fibrillation (HCC) Atrial fibrillation Primary open angle glaucoma of both eyes, mild stage Endometrial cancer (CMS/HCC) (HCC) Malignant neoplasm of corpus uteri, except isthmus Lymphedema of both lower extremities Morbid obesity (HCC) Morbid obesity Acquired hypothyroidism Unspecified hypothyroidism Moderate recurrent major depression (HCC) Major depressive disorder, recurrent episode, moderate Mixed hyperlipidemia Type 2 diabetes mellitus with hyperglycemia, with long-term current use of insulin (HCC)- Primary Debility Unspecified debility Poor sleep hygiene Other specific disorder of sleep of nonorganic origin Lymphedema of both lower extremities- Primary Type 2 diabetes mellitus with hyperglycemia, with long-term current use of insulin (HCC) Vitamin D deficiency Type 2 diabetes mellitus with hyperglycemia, with long-term current use of insulin (HCC)- Primary Lymphedema of both lower extremities Debility- Primary Unspecified debility Essential hypertension, benign Persistent atrial fibrillation (HCC) Atrial fibrillation Type 2 diabetes mellitus with hyperglycemia, with long-term current use of insulin (HCC) Cognitive decline Cellulitis of lower extremity, unspecified laterality Weight gain Other symptoms concerning nutrition, metabolism, and development Poor sleep hygiene Other specific disorder of sleep of nonorganic origin Mild intermittent asthma without complication Moderate aortic stenosis Aortic valve disorders Endometrial cancer (CMS/HCC) (HCC) Malignant neoplasm of corpus uteri, except isthmus Lymphedema of both lower extremities Vitamin D deficiency Acquired hypothyroidism Unspecified hypothyroidism Primary open angle glaucoma of both eyes, mild stage Moderate recurrent major depression (HCC) Major depressive disorder, recurrent episode, moderate Mixed hyperlipidemia Persistent atrial fibrillation (HCC)- Primary Atrial fibrillation Type 2 diabetes mellitus with hyperglycemia, with long-term current use of insulin (HCC) Endometrial cancer (CMS/HCC) (HCC) Malignant neoplasm of corpus uteri, except isthmus Multiple lung nodules Other diseases of lung, not elsewhere classified documented in this encounter [facility]* Diagnosis Persistent atrial fibrillation (HCC)- Primary Atrial fibrillation Type 2 diabetes mellitus with hyperglycemia, with long-term current use of insulin (HCC) Cognitive decline Debility Unspecified debility Essential hypertension, benign Moderate aortic stenosis Aortic valve disorders Mixed hyperlipidemia Primary open angle glaucoma of both eyes, mild stage Acquired hypothyroidism Unspecified hypothyroidism Vitamin D deficiency Debility- Primary Unspecified debility Type 2 diabetes mellitus with hyperglycemia, with long-term current use of insulin (HCC) Cognitive decline Vitamin D deficiency Moderate aortic stenosis Aortic valve disorders Essential hypertension, benign Persistent atrial fibrillation (HCC) Atrial fibrillation Primary open angle glaucoma of both eyes, mild stage Endometrial cancer (CMS/HCC) (HCC) Malignant neoplasm of corpus uteri, except isthmus Lymphedema of both lower extremities Morbid obesity (HCC) Morbid obesity Acquired hypothyroidism Unspecified hypothyroidism Moderate recurrent major depression (HCC) Major depressive disorder, recurrent episode, moderate Mixed hyperlipidemia Type 2 diabetes mellitus with hyperglycemia, with long-term current use of insulin (HCC)- Primary Debility Unspecified debility Poor sleep hygiene Other specific disorder of sleep of nonorganic origin Lymphedema of both lower extremities- Primary Type 2 diabetes mellitus with hyperglycemia, with long-term current use of insulin (HCC) Vitamin D deficiency Type 2 diabetes mellitus with hyperglycemia, with long-term current use of insulin (HCC)- Primary Lymphedema of both lower extremities Debility- Primary Unspecified debility Essential hypertension, benign Persistent atrial fibrillation (HCC) Atrial fibrillation Type 2 diabetes mellitus with hyperglycemia, with long-term current use of insulin (HCC) Cognitive decline Cellulitis of lower extremity, unspecified laterality Weight gain Other symptoms concerning nutrition, metabolism, and development Poor sleep hygiene Other specific disorder of sleep of nonorganic origin Mild intermittent asthma without complication Moderate aortic stenosis Aortic valve disorders Endometrial cancer (CMS/HCC) (HCC) Malignant neoplasm of corpus uteri, except isthmus Lymphedema of both lower extremities Vitamin D deficiency Acquired hypothyroidism Unspecified hypothyroidism Primary open angle glaucoma of both eyes, mild stage Moderate recurrent major depression (HCC) Major depressive disorder, recurrent episode, moderate Mixed hyperlipidemia Persistent atrial fibrillation (HCC)- Primary Atrial fibrillation Type 2 diabetes mellitus with hyperglycemia, with long-term current use of insulin (HCC) Multiple lung nodules Other diseases of lung, not elsewhere classified Endometrial cancer (CMS/HCC) (HCC) Malignant neoplasm of corpus uteri, except isthmus [facility]* Diagnosis Persistent atrial fibrillation (HCC)- Primary Atrial fibrillation Type 2 diabetes mellitus with hyperglycemia, with long-term current use of insulin (HCC) Cognitive decline Debility Unspecified debility Essential hypertension, benign Moderate aortic stenosis Aortic valve disorders Mixed hyperlipidemia Primary open angle glaucoma of both eyes, mild stage Acquired hypothyroidism Unspecified hypothyroidism Vitamin D deficiency Debility- Primary Unspecified debility Type 2 diabetes mellitus with hyperglycemia, with long-term current use of insulin (HCC) Cognitive decline Vitamin D deficiency Moderate aortic stenosis Aortic valve disorders Essential hypertension, benign Persistent atrial fibrillation (HCC) Atrial fibrillation Primary open angle glaucoma of both eyes, mild stage Endometrial cancer (CMS/HCC) (HCC) Malignant neoplasm of corpus uteri, except isthmus Lymphedema of both lower extremities Morbid obesity (HCC) Morbid obesity Acquired hypothyroidism Unspecified hypothyroidism Moderate recurrent major depression (HCC) Major depressive disorder, recurrent episode, moderate Mixed hyperlipidemia Type 2 diabetes mellitus with hyperglycemia, with long-term current use of insulin (HCC)- Primary Debility Unspecified debility Poor sleep hygiene Other specific disorder of sleep of nonorganic origin Lymphedema of both lower extremities- Primary Type 2 diabetes mellitus with hyperglycemia, with long-term current use of insulin (HCC) Vitamin D deficiency Type 2 diabetes mellitus with hyperglycemia, with long-term current use of insulin (HCC)- Primary Lymphedema of both lower extremities Debility- Primary Unspecified debility Essential hypertension, benign Persistent atrial fibrillation (HCC) Atrial fibrillation Type 2 diabetes mellitus with hyperglycemia, with long-term current use of insulin (HCC) Cognitive decline Cellulitis of lower extremity, unspecified laterality Weight gain Other symptoms concerning nutrition, metabolism, and development Poor sleep hygiene Other specific disorder of sleep of nonorganic origin Mild intermittent asthma without complication Moderate aortic stenosis Aortic valve disorders Endometrial cancer (CMS/HCC) (HCC) Malignant neoplasm of corpus uteri, except isthmus Lymphedema of both lower extremities Vitamin D deficiency Acquired hypothyroidism Unspecified hypothyroidism Primary open angle glaucoma of both eyes, mild stage Moderate recurrent major depression (HCC) Major depressive disorder, recurrent episode, moderate Mixed hyperlipidemia Persistent atrial fibrillation (HCC)- Primary Atrial fibrillation Type 2 diabetes mellitus with hyperglycemia, with long-term current use of insulin (HCC) Multiple lung nodules- Primary Other diseases of lung, not elsewhere classified Endometrial cancer (CMS/HCC) (HCC) Malignant neoplasm of corpus uteri, except isthmus documented in this encounter [facility]* Diagnosis Abnormal weight loss- Primary Loss of weight Other malaise Malignant neoplasm of endometrium (HCC) Malignant neoplasm of corpus uteri, except isthmus Other amnesia Heart failure, unspecified (HCC) Heart failure, unspecified Nonrheumatic aortic (valve) stenosis Other general symptoms and signs Persistent atrial fibrillation (HCC)- Primary Atrial fibrillation Type 2 diabetes mellitus with hyperglycemia, with long-term current use of insulin (HCC) Cognitive decline Debility Unspecified debility Essential hypertension, benign Moderate aortic stenosis Aortic valve disorders Mixed hyperlipidemia Primary open angle glaucoma of both eyes, mild stage Acquired hypothyroidism Unspecified hypothyroidism Vitamin D deficiency Debility- Primary Unspecified debility Type 2 diabetes mellitus with hyperglycemia, with long-term current use of insulin (HCC) Cognitive decline Vitamin D deficiency Moderate aortic stenosis Aortic valve disorders Essential hypertension, benign Persistent atrial fibrillation (HCC) Atrial fibrillation Primary open angle glaucoma of both eyes, mild stage Endometrial cancer (CMS/HCC) (HCC) Malignant neoplasm of corpus uteri, except isthmus Lymphedema of both lower extremities Morbid obesity (HCC) Morbid obesity Acquired hypothyroidism Unspecified hypothyroidism Moderate recurrent major depression (HCC) Major depressive disorder, recurrent episode, moderate Mixed hyperlipidemia Type 2 diabetes mellitus with hyperglycemia, with long-term current use of insulin (HCC)- Primary Debility Unspecified debility Poor sleep hygiene Other specific disorder of sleep of nonorganic origin Abnormal weight loss Loss of weight Other malaise Malignant neoplasm of endometrium (HCC) Malignant neoplasm of corpus uteri, except isthmus Other amnesia Abnormal weight loss Loss of weight Other malaise Malignant neoplasm of endometrium (HCC) Malignant neoplasm of corpus uteri, except isthmus Other amnesia Lymphedema of both lower extremities- Primary Type 2 diabetes mellitus with hyperglycemia, with long-term current use of insulin (HCC) Vitamin D deficiency Type 2 diabetes mellitus with hyperglycemia, with long-term current use of insulin (HCC)- Primary Lymphedema of both lower extremities Debility- Primary Unspecified debility Essential hypertension, benign Persistent atrial fibrillation (HCC) Atrial fibrillation Type 2 diabetes mellitus with hyperglycemia, with long-term current use of insulin (HCC) Cognitive decline Cellulitis of lower extremity, unspecified laterality Weight gain Other symptoms concerning nutrition, metabolism, and development Poor sleep hygiene Other specific disorder of sleep of nonorganic origin Mild intermittent asthma without complication Moderate aortic stenosis Aortic valve disorders Endometrial cancer (CMS/HCC) (HCC) Malignant neoplasm of corpus uteri, except isthmus Lymphedema of both lower extremities Vitamin D deficiency Acquired hypothyroidism Unspecified hypothyroidism Primary open angle glaucoma of both eyes, mild stage Moderate recurrent major depression (HCC) Major depressive disorder, recurrent episode, moderate Mixed hyperlipidemia Persistent atrial fibrillation (HCC)- Primary Atrial fibrillation Type 2 diabetes mellitus with hyperglycemia, with long-term current use of insulin (HCC) documented in this encounter [facility]* Diagnosis Persistent atrial fibrillation (HCC)- Primary Atrial fibrillation Type 2 diabetes mellitus with hyperglycemia, with long-term current use of insulin (HCC) Cognitive decline Debility Unspecified debility Essential hypertension, benign Moderate aortic stenosis Aortic valve disorders Mixed hyperlipidemia Primary open angle glaucoma of both eyes, mild stage Acquired hypothyroidism Unspecified hypothyroidism Vitamin D deficiency Debility- Primary Unspecified debility Type 2 diabetes mellitus with hyperglycemia, with long-term current use of insulin (HCC) Cognitive decline Vitamin D deficiency Moderate aortic stenosis Aortic valve disorders Essential hypertension, benign Persistent atrial fibrillation (HCC) Atrial fibrillation Primary open angle glaucoma of both eyes, mild stage Endometrial cancer (HCC) Malignant neoplasm of corpus uteri, except isthmus Lymphedema of both lower extremities Morbid obesity (CMS/HCC) Morbid obesity Acquired hypothyroidism Unspecified hypothyroidism Moderate recurrent major depression (CMS/HCC) Major depressive disorder, recurrent episode, moderate Mixed hyperlipidemia Type 2 diabetes mellitus with hyperglycemia, with long-term current use of insulin (HCC)- Primary Debility Unspecified debility Poor sleep hygiene Other specific disorder of sleep of nonorganic origin Lymphedema of both lower extremities- Primary Type 2 diabetes mellitus with hyperglycemia, with long-term current use of insulin (HCC) Vitamin D deficiency Type 2 diabetes mellitus with hyperglycemia, with long-term current use of insulin (HCC)- Primary Lymphedema of both lower extremities Debility- Primary Unspecified debility Essential hypertension, benign Persistent atrial fibrillation (HCC) Atrial fibrillation Type 2 diabetes mellitus with hyperglycemia, with long-term current use of insulin (HCC) Cognitive decline Cellulitis of lower extremity, unspecified laterality Weight gain Other symptoms concerning nutrition, metabolism, and development Poor sleep hygiene Other specific disorder of sleep of nonorganic origin Mild intermittent asthma without complication Moderate aortic stenosis Aortic valve disorders Endometrial cancer (HCC) Malignant neoplasm of corpus uteri, except isthmus Lymphedema of both lower extremities Vitamin D deficiency Acquired hypothyroidism Unspecified hypothyroidism Primary open angle glaucoma of both eyes, mild stage Moderate recurrent major depression (CMS/HCC) Major depressive disorder, recurrent episode, moderate Mixed hyperlipidemia Persistent atrial fibrillation (HCC)- Primary Atrial fibrillation Type 2 diabetes mellitus with hyperglycemia, with long-term current use of insulin (HCC) Pressure injury of right buttock, stage 2 (CMS/HCC)- Primary Pressure injury of right buttock, stage 2 (CMS/HCC) Pressure injury of sacral region, stage 1 Ulcer of abdomen wall, limited to breakdown of skin Hyperglycemia Other abnormal glucose Diabetic ketoacidosis without coma associated with diabetes mellitus due to underlying condition (HCC) documented in this encounter [facility] for visit Narrative* Imaging (Routine) - Closed Specialty Diagnoses / Procedures [facility] Referred To Contact Radiology Diagnoses Abnormal weight loss Other malaise Malignant neoplasm of endometrium (HCC) Other amnesia Procedures CT head w and wo IV contrast Christy Leach MD [address] [facility] [address] [place] [address] Phone: tel: fax: Referral ID Status Reason Start Date Expiration Date Visits Re quested Visits Authorized [id number] Closed 10/27/2024 10/27/2025 1 1 [facility] for visit Narrative* Imaging (Routine) - Closed Specialty Diagnoses / Procedures Referred By [facility] t Referred To Contact Radiology Diagnoses Abnormal weight loss Other malaise Malignant neoplasm of endometrium (HCC) Other amnesia Procedures CT chest abdomen pelvis with contrast Christy Leach MD [address] [facility] [address] [place] [address] Phone: tel: fax: Referral ID Status Reason Start Date Expiration Date Visits Re quested Visits Authorized [id number] Closed 10/27/2024 10/27/2025 1 1 [facility] for visit Narrative* Imaging (Routine) - Closed Specialty Diagnoses / Procedures Referred By [facility] t Referred To Contact Radiology Diagnoses Endometrial cancer (CMS/HCC) (HCC) Multiple lung nodules Procedures CT guided biopsy abdomen or retroperitoneum Cuauhtemoc Stubbs MD [address] [facility] [place] [address] [place] [address] Phone: tel: fax: Referral ID Status Reason Start Date Expiration Date Visits Re quested Visits Authorized [id number] Closed 12/10/2024 12/10/2025 1 [facility] (Routine) - Closed Specialty Diagnoses / Procedures Referred By Contac t Referred To Contact Radiology Diagnoses Multiple lung nodules Endometrial cancer (CMS/HCC) (HCC) Procedures PET/CT skull base to mid thigh Cuauhtemoc Stubbs MD [address] [facility] [place] [address] [place] [address] Phone: tel: fax: [facility] [address] [facility] [place] [address] Phone: tel: Referral ID Status Reason Start Date Expiration Date Visits Re quested Visits Authorized [id number] Closed 12/23/2024 12/23/2025 1 1 [employer] Advance Directives Documents on File Type Date Recorded Patient Data Mining Analyst Expl anation ACP-Advance Directive 02/05/2018 9:43 AM Latest Code Status on File Code Status Date Activated Date Inactivated Comments Full Code 09/30/2020 3:48 PM 10/01/2020 8:11 PM Full Code 09/30/2020 5:36 AM 09/30/2020 3:24 PM Full Code 01/30/2018 9:44 AM 02/01/2018 8:47 PM Full Code 01/29/2018 9:19 PM 01/30/2018 9:44 AM Full Code 01/29/2018 9:51 AM 01/29/2018 8:58 PM Documents on File Type Date Recorded Patient Data Mining Analyst Expl anation Advance Directives and Livin g Will Advance Directives and Livin g Will 02/05/2018 9:43 AM Power of Hairspring I Inspector Latest Code Status on File Code Status Date Activated Date Inactivated Comments Full Code 01/30/2018 9:44 AM 02/01/2018 8:47 PM Full Code 03/20/2017 10:43 AM 03/20/2017 3:27 PM Documents on File Type Date Recorded Patient Data Mining Analyst Expl anation ACP-Advance Directive ACP-Advance Directive 02/05/2018 9:43 AM ACP-Power of Hairspring I Inspector Latest Code Status on File Code Status Date Activated Date Inactivated Comments Full Code 09/30/2020 3:48 PM Documents on File Type Date Recorded Patient Data Mining Analyst Expl anation ACP-Advance Directive ACP-Advance Directive 02/05/2018 9:43 AM ACP-Power of Hairspring I Inspector Latest Code Status on File Code Status Date Activated Date Inactivated Comments Full Code 09/30/2020 3:48 PM 10/01/2020 8:11 PM Full Code 09/30/2020 5:36 AM 09/30/2020 3:24 PM Full Code 01/30/2018 9:44 AM 02/01/2018 8:47 PM Full Code 01/29/2018 9:19 PM 01/30/2018 9:44 AM Full Code 01/29/2018 9:51 AM 01/29/2018 8:58 PM Documents on File Type Date Recorded Patient Data Mining Analyst Expl anation ACP-Advance Directive ACP-Power of Hairspring I Inspector ACP-Advance Directive 02/05/2018 9:43 AM Documents on File Type Date Recorded Patient Data Mining Analyst Expl anation Advance Directive(s) 09/03/2020 6:43 AM Advance Directive(s) 09/03/2020 6:45 AM Documents on File Type Date Recorded Patient Data Mining Analyst Expl anation Advance Directive(s) 11/22/2021 6:39 AM Advance Directive(s) 09/03/2020 6:43 AM Advance Directive(s) 09/03/2020 6:45 AM Documents on File Type Date Recorded Patient Data Mining Analyst Expl anation Advance Directive(s) 12/06/2021 6:45 AM Advance Directive(s) 11/22/2021 6:39 AM Advance Directive(s) 09/03/2020 6:43 AM Advance Directive(s) 09/03/2020 6:45 AM Date Activated Date Inactivated Comments 11/02/2024 1:48 AM 11/05/2024 8:30 PM Date Activated Date Inactivated Comments 11/02/2024 1:48 AM 11/05/2024 8:30 PM Date Activated Date Inactivated Comments 11/21/2024 9:04 AM Date Activated Date Inactivated Comments 11/02/2024 1:48 AM 11/05/2024 8:30 PM Date Activated Date Inactivated Comments 11/21/2024 9:04 AM Date Activated Date Inactivated Comments 11/02/2024 1:48 AM 11/05/2024 8:30 PM Documents on File Type Date Recorded Patient Data Mining Analyst Expl anation Power of Hairspring I Inspector 05/11/2025 6:50 PM Advance Directives and Victor Manuel ramírez Will 05/11/2025 6:50 PM DNR (Do Not Resuscitate) 05/19/2025 2:11 PM Alexander DNR Form Date Activated Date Inactivated Comments 05/11/2025 10:52 PM 05/19/2025 8:37 PM Question Answer Comments ICU transfer: Yes Intubation: Yes Date Activated Date Inactivated Comments 11/21/2024 9:04 AM 05/11/2025 10:52 PM Date Activated Date Inactivated Comments 11/02/2024 1:48 AM 11/05/2024 8:30 PM Summary Purpose Family History No Family History Records FoundNo Family History Records FoundNo Family History Records FoundNo Family History Records FoundNo Family History Records FoundNo Family History Records FoundNo Family History Records Found Procedure Findings Note HNO ID: [id number] Author: Haile Wong (Aprn Crna) Service: Anesthesiology Author Type: Nurse Computer Artist Type: Anesthesia Procedure Notes Filed: 09/03/2020 8:29 AM Note Text: ANESTHESIOLOGY PROCEDURE NOTE Airway General Information Procedure Start Time/Medication Administration: 09/03/2020 8:05 AM Patient location during procedure: OR Timeout Performed Pre-procedure: timeout performed Consent Obtained: Yes Patient identity confirmed: arm band Staffing AUTOMATION QA TESTER: Alejandra Wong (Aprn Crna) Performed by: AUTOMATION QA TESTER Indications and Patient Condition Preoxygenated: yes Patient position: ramp Difficult Mask: No Indications for airway management: anesthesia anesthesia circuit Method: sleep Final Airway Details Final airway type: endotracheal airway Final Endotracheal Airway: ETT Cuffed: yes Successful intubation technique: direct laryngoscopy Blade: Olegario Blade size: #3 ETT size (mm): 7.0 Measured from: lips Measurement (cm): 22 Placement verified by: capnometry Cormack-Lehane Classification: grade (more content not included)... Discharge Instructions * Instructions* Bianca Coleman RN - 09/23/2020 Please bring your [facility] Surgical Information folder on the day of surgery. Please jose martin the last dose taken (date and time ) on your Daily Medications List provided in your After Visit Summary. Please bring a photo ID and insurance information Do NOT take the following medications on the morning of surgery: HYDROCHLOROTHIAZIDE, OLMESARTAN, PROTEIN, VITAMIN, MIRABEGRON TAKE the following medications the morning of your surgery: INHALER, CITALOPRAM, FLONASE, LEVOTHYROXINE U500 Insulin: The physician managing your U500 insulin should give specific recommendations before your surgery. Please call the managing physician's office if you do not already have instructions inregards to your insulin. You may take Tylenol (Acetaminophen) if needed for pain. No Motrin, Ibuprofen, or Advil 24 hours prior to surgery, or longer if instructed by your surgeon. No Aleve or Naprosyn 3 days prior to surgery, or longer if instructed by your surgeon. If you are on ASPIRIN: NO ASPIRIN FOR FIVE DAYS PRIOR TO SURGERY Additional instructions: CHG shower kit and instructions given to patient. Please remember to use half the bottle the night before surgery and half the bottle the day of surgery. Clean sheets and clothes should be used after each use. If you have specific questions, please call your surgeon. * Attachments The following attachments cannot be sent through Care Everywhere. * Laparoscopic Hysterectomy: Pre-op (Senegalese) * Laparoscopic Hysterectomy: Post-op (Senegalese) documented in this encounter* Instructions* Gloria Giraldo MD - 10/01/2020 Please see discharge instructions provided in the office. * Attachments The following attachments cannot be sent through Care Everywhere. * Hysterectomy: Abdominal: Post-op (Senegalese) * Hysterectomy: General Info (Sen[place]alese) * ibuprofen ([place]e) * oxycodone ([place]e) * Diabetes: Type 2: Metformin: General Info (Senegalese) documented in this encounter Hospital Course * Cuauhtemoc Stubbs MD - 10/01/2020 7:16 AM EST Images from the original note were not included. Diagnostic Technologist Discharge Summary Patient Name: Dameon Potter Patient : 1955 Primary Care Physician: Christy Rizzo MD Admit Date: 09/30/2020 Attending Provider: Cuauhtemoc Stubbs MD Principal Diagnosis: endometrial cancer Other Diagnosis: Post-operative state [Z98.890] Patient Active Problem List Diagnosis OAB (overactive bladder) Mixed hyperlipidemia Essential hypertension, benign Hypothyroidism SOB (shortness of breath) on exertion Obstructive sleep apnea Fatigue Morbid obesity (HCC) Gastroesophageal reflux disease without esophagitis Gastritis without bleeding PND (post-nasal drip) Vitamin D deficiency Lymphedema Hepatic steatosis Calculus of gallbladder with chronic cholecystitis without obstruction Uncontrolled type 2 diabetes mellitus with hyperglycemia, with long-term current use of insulin (HCC) Deficiency of nutrient elements Intestinal malabsorption Zinc deficiency Post-operative state Endometrial cancer (HCC) Morbid obesity Surgical Operations & Procedures: RTLH-BSO Consultations: endocrinology Pertinent Findings & Procedures: Dameon Potter is a 65 y.o. female admitted postoperatively following a RTLH-BSO. She was admitted overnight as she had no one at home to help take care of her immediately postop. She was discharged home on POD#1 in stable condition. Follow up on 10/18/[address] Stubbs. Discharge instructions reviewed and questions answered. Course of patient: BGTs elevated, endocrinology consulted for insulin orders Discharge to: Home Wound Care: keep wound clean and dry Recommendations on Discharge: Medications: Dameon Potter Home Medication Instructions BATOOL:[id number] Printed on:10/01/20 4799 Medication Information acetaminophen (APAP EXTRA STRENGTH) 500 MG tablet Take 2 tablets by mouth every 6 hours as needed for Pain albuterol (PROVENTIL HFA;VENTOLIN HFA) 108 (90 BASE) MCG/ACT inhaler Inhale 2 puffs into the lungs 2 times daily as needed for Wheezing atorvastatin (LIPITOR) 80 MG tablet Take 1 tablet by mouth daily blood glucose test strips (FREESTYLE LITE) strip 1 each by In Vitro route 2 times daily As needed. brimonidine (ALPHAGAN P) 0.1 % SOLN 1 drop 3 times daily 1 drop into each eye Calcium Citrate-Vitamin D (CALCIUM CITRATE +D PO) Take 500 mg by mouth 3 times daily carvedilol (COREG) 6.25 MG tablet Take 1 tablet by mouth 2 times daily citalopram (CELEXA) 20 MG tablet Take 20 mg by mouth daily CPAP Machine MISC by Does not apply route Cyanocobalamin (VITAMIN B-12) [address] 1,000 mcg under the tongue once a week EPINEPHrine HCl, Anaphylaxis, (EPIPEN IM) Inject into the muscle as needed hydrochlorothiazide (HYDRODIURIL) 25 MG tablet Take 1 tablet by mouth daily hydrocortisone 0.5 % cream Apply topically 2 times daily as needed Apply topically 2 times daily. ibuprofen (ADVIL;MOTRIN) 600 MG tablet Take 1 tablet by mouth 4 times daily as needed for Pain insulin regular human (HUMULIN R) 500 UNIT/ML concentrated injection vial Draw up to 22 units before breakfast and dinner Insulin Syringe-Needle U-100 (B-D INS SYRINGE 0.5CC/30GX1/2) 30G X 1/2 0.5 ML MISC 1 each by Does not apply route daily levothyroxine (SYNTHROID) 175 MCG tablet Take 1 tablet by mouth Daily Mirabegron ER (MYRBETRIQ) 50 MG TB24 Take 50 mg by mouth daily olmesartan (BENICAR) 40 MG tablet Take 40 mg by mouth daily Indications: HYPERTENSION oxyCODONE (ROXICODONE) 5 MG immediate release tablet Take 1 tablet by mouth every 6 hours as needed for Pain for up to 12 doses. Intended supply: 3 days. Take lowest dose possible to manage pain Pediatric Multivitamins-Iron (CHILDRENS MULTIVITAMIN/IRON PO) Take 2 tablets by mouth daily Polyethyl Glycol-Propyl Glycol (SYSTANE OP) Apply to eye as needed PROTEIN PO Take by mouth daily timolol (TIMOPTIC) 0.5 % ophthalmic solution Place 1 drop into both eyes 2 times daily VITAMIN D, CHOLECALCIFEROL, PO Take 8,000 Int'l Units by mouth daily Indications: supplement Zinc 50 MG TABS Take 50 mg by mouth daily Activity: no driving while on analgesics, no strenuous activity for 6 weeks Diet: diabetic diet Follow up: 10/[address] Stubbs Condition on discharge: good and stable Discharge Date: 10/01/20 Comments: Home care, Follow-up care, restrictions reviewed. Gloria Giraldo MD 10/01/2020, 7:17 AM documented in this encounter History of Present Illness * Alida Gates RN - 10/01/2020 5:18 PM EST VOICED UNDERSTANDING OF DISCHARGE INSTRUCTIONS, MEDS, FOLLOWUP, S/S INFECTION, LAP SITE CARE, AND WHEN TO CALL DR * Gloria Giraldo MD - 10/01/2020 6:03 AM EST Images from the original note were not included. KNITTER HAND Progress Note Date: 10/01/2020 Time: 6:03 AM Dameon Potter 65 y.o. female POD # 1 s/p RTLH-BSO Patient seen and examined. She has no complaints. Pain is controlled. Patient is tolerating oral intake. She is urinating. She reports minimal vaginal spotting. She is ambulating without difficulty. She is not passing flatus. She denies Fever/Chills, Chest Pain, SOB, N/V. Vitals: Vitals: 09/30/20 1721 09/30/20 2128 10/01/20 0120 10/01/20 0534 BP: (!) 178/97 (!) 149/58 139/71 (!) 164/78 Pulse: 66 77 73 64 Resp: 18 18 18 18 Temp: 99.9 F (37.7 C) 97.8 F (36.6 C) 97.6 F (36.4 C) 98.4 F (36.9 C) TempSrc: Temporal Temporal Temporal Temporal SpO2: 93% 95% 97% 96% Weight: Height: Intake/Output: Last Shift: @[id number]@ Current Shift: I/O this shift: In: - Out: 600 [Urine:600] Physical Exam: Gen: NAD, alert and cooperative HEENT: Normocephalic, atraumatic, EOMI, MMM Resp: CTABL, no WRR Card: RRR, no murmur Abd: soft, NT/ND, no rebound, no guarding. Present BS Incisions: C/D/I Ext: No LE edema, no calf tenderness or swelling Medications: Current Facility-Administered Medications Medication Dose Route Frequency Provider Last Rate Last Admin levothyroxine (SYNTHROID) tablet 175 mcg 175 mcg Oral Daily Rashaad Crawley, DO 175 mcg at hydroCHLOROthiazide (HYDRODIURIL) tablet 25 mg 25 mg Oral Daily Rashaad Crawley, DO citalopram (CELEXA) tablet 20 mg 20 mg Oral Daily Rashaad Crawley, DO sodium chloride flush 0.9 % injection 10 mL 10 mL Intravenous 2 times per day [facility], DO sodium chloride flush 0.9 % injection 10 mL 10 mL Intravenous PRN [facility], DO acetaminophen (TYLENOL) tablet 650 mg 650 mg Oral Q4H PRN [facility], DO oxyCODONE (ROXICODONE) immediate release tablet 5 mg 5 mg Oral Q4H PRN [facility], DO Or oxyCODONE (ROXICODONE) immediate release tablet 10 mg 10 mg Oral Q4H PRN [facility], DO promethazine (PHENERGAN) tablet 12.5 mg 12.5 mg Oral Q6H PRN [facility], DO Or ondansetron (ZOFRAN) injection 4 mg 4 mg Intravenous Q6H PRN [facility], DO ibuprofen (ADVIL;MOTRIN) tablet 600 mg 600 mg Oral Q6H [facility], DO 600 mg at 10/01/20 0517 bisacodyl (DULCOLAX) EC tablet 5 mg 5 mg Oral Daily [facility], DO insulin lispro (HUMALOG) injection vial 0-18 Units 0-18 Units Subcutaneous 4x Daily [facility], DO 15 Units at 09/30/20 190 glucose (GLUTOSE) 40 % oral gel 15 g 15 g Oral PRN [facility], DO dextrose 50 % IV solution 12.5 g Intravenous PRN [facility], DO glucagon (rDNA) injection 1 mg 1 mg Intramuscular PRN [facility], DO dextrose 5 % solution 100 mL/hr Intravenous PRN [facility], DO hydrALAZINE (APRESOLINE) injection 10 mg 10 mg Intravenous Q4H PRN [facility], DO 10 mg at 09/30/20 180 carvedilol (COREG) tablet 6.25 mg 6.25 mg Oral BID [facility], DO 6.25 mg at 09/30/20 180 insulin regular human (humuLIN R U-500 KWIKPEN) 500 UNIT/ML concentrated injection pen 50 Units 50 Units Subcutaneous QAM AC Tiffani Robison MD Diagnostics: No results found. Labs: Admission on 09/30/2020 Component Date Value Ref Range Status POC Glucose 09/30/2020 330* 70 - 100 mg/dL Final Comment: Test performed by glucose meter. Results may be 10%-15% lower than serum/plasma values. (CLIA ID [id number]) POC Glucose 09/30/2020 343* 70 - 100 mg/dL Final Comment: Test performed by glucose meter. Results may be 10%-15% lower than serum/plasma values. (CLIA ID [id number]) POC Glucose 09/30/2020 317* 70 - 100 mg/dL Final Comment: Test performed by glucose meter. Results may be 10%-15% lower than serum/plasma values. (CLIA ID [id number]) POC Glucose 09/30/2020 379* 70 - 100 mg/dL Final Comment: Test performed by glucose meter. Results may be 10%-15% lower than serum/plasma values. (CLIA ID [id number]) POC Glucose 09/30/2020 308* 70 - 100 mg/dL Final Comment: Test performed by glucose meter. Results may be 10%-15% lower than serum/plasma values. (CLIA ID [id number]) POC Glucose 09/30/2020 288* 70 - 100 mg/dL Final Comment: Test performed by glucose meter. Results may be 10%-15% lower than serum/plasma values. (CLIA ID [id number]) POC Glucose 09/30/2020 366* 70 - 100 mg/dL Final Comment: Test performed by glucose meter. Results may be 10%-15% lower than serum/plasma values. (CLIA ID [id number]) POC Glucose 09/30/2020 388* 70 - 100 mg/dL Final Comment: Test performed by glucose meter. Results may be 10%-15% lower than serum/plasma values. (CLIA ID [id number]) POC Glucose 09/30/2020 355* 70 - 100 mg/dL Final Comment: Test performed by glucose meter. Results may be 10%-15% lower than serum/plasma values. (CLIA ID [id number]) POC Glucose 10/01/2020 341* 70 - 100 mg/dL Final Comment: Test performed by glucose meter. Results may be 10%-15% lower than serum/plasma values. (CLIA ID [id number]) ] Assessment/Plan: Dameon Potter 65 y.o. female POD#1 s/p RTLH-BSO - Doing well - Hypertensive overnight, due to resume home antihypertensives this AM - Encourage ambulation and use of incentive spirometer - Pain controlled: yes - Labs/Imaging: BGTs - DVT Proph:SCDs while in bed - Abx:not indicated - Diet: carb control - Disposition: anticipate discharge today T2DM - Endocrinology consulted overnight due to postop BGTs in the jennifer 300s, appreciate recs - Continue insulin U500 10u qAM and high Dose SSI Active Problems: Post-operative state Endometrial cancer (HCC) Resolved Problems: * No resolved hospital problems. * Gloria Giraldo MD 10/01/2020, 6:03 AM Associated attestation - Cuauhtemoc Stubbs MD - 10/01/2020 11:15 AM EST Patient rounded with the residents. Doing well. Discussed surgical findings and technically difficult surgery. Okay to discharge to home. * Alida Gates RN - 09/30/2020 6:52 PM EST PERFECT SERVED PRIMARY FOR SSI ORDERS, FNY=[id number] * lCaudette Christianson RN - 09/30/2020 10:30 AM EST Notified [employer] QA TESTER of OTBS 308. Orders given to recheck in 1 hour * Lyric Mario RN - 09/30/2020 6:57 AM EST Repeat blood sugar 343 anesthesia at bedside states will monitor in OR and treat if necessary * Lyric Mario RN - 09/30/2020 6:48 AM EST Received orders insulin given will recheck blood sugar at 0700 * Lyric Mario RN - 09/30/2020 6:[address] Bello paged for blood sugar results waiting on orders * Lyric Mario RN - 09/30/2020 6:[address] Coleman pagefelicita for blood sugar 330, waiting for return call documented in this encounter Assessments Diagnosis Post-operative state- Primary Other postprocedural status Type 2 diabetes mellitus with hyperosmolarity without coma, 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) 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) Type II or unspecified type diabetes mellitus with other specified manifestations, not stated as uncontrolled Endometrial cancer (HCC) Malignant neoplasm of corpus uteri, except isthmus Obesity with body mass index greater than 30 Diagnosis Malignant neoplasm of endometrium (HCC) Malignant neoplasm of corpus uteri, except isthmus Reason for Referral Status Reason Specialty Diagnoses / Procedures Referre d By Contact Referred To Contact Open Radiology Diagnoses Malignant neoplasm of endometrium (HCC) Procedures CT CHEST/ABDOMEN/PELVIS (PO,IV) Ino He MD [address] [facility] [address] [place] [address] Specialty Diagnoses / Procedures Referred By Contac t Referred To Contact Radiology Diagnoses Endometrial cancer (CMS/HCC) (HCC) Procedures CT abdomen pelvis w contrast Anjana Meadows APRN - SAMUEL [address] [facility] [address] [place] [address] Referral ID Status Reason Start Date Expiration Date V isits Requested Visits Authorized [id number] Pending Review 11/01/2023 10/31/2024 1 1 Specialty Diagnoses / Procedures Referred By Contac t Referred To Contact Radiology Diagnoses Endometrial cancer (CMS/HCC) (HCC) Procedures CT abdomen pelvis w contrast Anjana Meadows, 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 [address] [place] [address] [facility] [address] [place] [address] Referral ID Status Reason Start Date Expiration Date Visits Re quested Visits Authorized [id number] Closed 11/01/2023 10/31/2024 1 1 Specialty Diagnoses / Procedures Referred By Contac t Referred To Contact Cardiology Diagnoses Essential (primary) hypertension Cardiac murmur, unspecified Procedures Transthoracic echocardiogram (TTE) complete with contrast, bubble, strain, and 3D PRN OR ECHO TTHRC R-T 2D W/WOM-MODE COMPL SPEC&COLR D OR TTE W OR WO FOL WCON,DOPPLER Dom Jovon, Christy Gill MD [address] [facility] [address] [place] [address] [facility] Non-Invasive Cardiology [address] [facility] [address] [place] [address] Referral ID Status Reason Start Date Expiration Date Visits Re quested Visits Authorized [id number] Closed 02/28/2024 02/27/2025 1 1 Medications Administered Section Active Administered Medications - up to 3 most recent administrations Medication Order MAR Action Action Date Dose Rate Site fluorescein-benoxinate 0.25-0.4 % 1 Drop (FLURESS) 1 Drop, BOTH EYES, DIRECTED, Starting on Sun11/30/21 at 0830, Until Sun11/30/21 at 2028, Administer for applanation tonometry. In the event of a Fluress shortage, administer Flushing-Fluor 1 drop into both eyes as directed for applanation tonometry, [facility] MED ORDERS Given 11/30/2021 8:57 AM EDT 1 Drop Active Administered Medications - up to 3 most recent administrations Medication Order MAR Action Action Date Dose Rate Site fluorescein-benoxinate 0.25-0.4 % 1 Drop (FLURESS) 1 Drop, BOTH EYES, DIRECTED, Starting on Sun12/07/21 at 0830, Until Sun12/07/21 at 2029, Administer for applanation tonometry. In the event of a Fluress shortage, administer Yolanda-Fluor 1 drop into both eyes as directed for applanation tonometry, [facility]IC MED ORDERS Given 12/07/2021 8:30 AM EDT 1 Drop Active Administered Medications - up to 3 most recent administrations Medication Order MAR Action Action Date Dose Rate Site fluorescein-benoxinate 0.25-0.4 % 1 Drop (FLURESS) 1 Drop, BOTH EYES, DIRECTED, Starting on Sun12/13/21 at 0900, Until Sun12/13/21 at 2059, Administer for applanation tonometry. In the event of a Fluress shortage, administer Flushing-Fluor 1 drop into both eyes as directed for applanation tonometry, [facility] MED ORDERS Given 12/13/2021 8:31 AM EDT 1 Drop Active Administered Medications - up to 3 most recent administrations Medication Order MAR Action Action Date Dose Rate Site fluorescein-benoxinate 0.25-0.4 % 1 Drop (FLURESS) 1 Drop, BOTH EYES, DIRECTED, Starting on Sun01/06/22 at 1230, Until Sun01/07/22 at 0029, Administer for applanation tonometry. In the event of a Fluress shortage, administer Flushing-Fluor 1 drop into both eyes as directed for applanation tonometry, [facility] MED ORDERS Given 01/06/2022 12:30 PM EDT 1 Drop Active Administered Medications - up to 3 most recent administrations Medication Order MAR Action Action Date Dose Rate Site fluorescein-benoxinate 0.25-0.4 % 1 Drop (FLURESS) 1 Drop, BOTH EYES, DIRECTED, Starting on Sun04/06/22 at 1308, Until Sun04/07/22 at 0107, Administer for applanation tonometry. In the event of a Fluress shortage, administer Yolanda-Fluor 1 drop into both eyes as directed for applanation tonometry, [facility] MED ORDERS Given 04/06/2022 1:10 PM EDT 1 Drop PHENYLephrine 2.5 % 1 Drop (AK-DILATE, ROSLYN-SYNEPHRINE) 1 Drop, BOTH EYES, DIRECTED, Starting on Sun04/06/22 at 1308, Until Sun04/07/22 at 0107, Administer for dilation PROTECT FROM LIGHT, [facility] MED ORDERS Given 04/06/2022 1:10 PM EDT 1 Drop tropicamide 1 % 1 Drop (MYDRIACYL) 1 Drop, BOTH EYES, DIRECTED, Starting on Sabian 04/06/22 at 1308, Until Sun04/07/22 at 0107, Administer for dilation, [facility] MED ORDERS Given 04/06/2022 1:10 PM EDT 1 Drop Active Administered Medications - up to 3 most recent administrations Medication Order MAR Action Action Date Dose Rate Site fluorescein-benoxinate 0.25-0.4 % 1 Drop (FLURESS) 1 Drop, BOTH EYES, DIRECTED, Starting on Sun04/10/23 at 1600, Until Sun04/11/23 at 0359, Administer for applanation tonometry. In the event of a Fluress shortage, administer 1 drop of Flushing-Fluor into both eyes as directed for applanation tonometry., [facility] CLINIC MED ORDERS Given 04/10/2023 4:00 PM EDT 1 Drop PHENYLephrine 2.5 % 1 Drop (AK-DILATE, ROSLYN-SYNEPHRINE) 1 Drop, BOTH EYES, DIRECTED, Starting on Sun04/10/23 at 1600, Until Sun04/11/23 at 0359, Administer for dilation PROTECT FROM LIGHT, [facility]IC MED ORDERS Given 04/10/2023 4:00 PM EDT 1 Drop tropicamide 1 % 1 Drop (MYDRIACYL) 1 Drop, BOTH EYES, DIRECTED, Starting on Sun04/10/23 at 1600, Until Sun04/11/23 at 0359, Administer for dilation, [facility]INIC MED ORDERS Given 04/10/2023 4:00 PM EDT 1 Drop Additional Source Comments INFORMATION SOURCE (unrecogn ized section and content) DATE CREATED AUTHOR 09/11/2020 [facility] DATE CREATED AUTHOR AUTHOR'S ORGANIZ ATION 01/12/2021 [facility] DATE CREATED AUTHOR AUTHOR'S ORGANIZ ATION 12/09/2021 [facility] DATE CREATED AUTHOR AUTHOR'S ORGANIZ ATION 05/15/2022 [facility] DATE CREATED AUTHOR AUTHOR'S ORGANIZ ATION 05/10/2024 [facility] DATE CREATED AUTHOR AUTHOR'S ORGANIZ ATION 09/25/2024 [facility] DATE CREATED AUTHOR AUTHOR'S ORGANIZ ATION 05/21/2025 [facility] Ordered Prescriptions (unrec ognized section and content) Prescription Sig Dispensed Refills Start Date End Da te Lancets MISC USE TO TEST BLOOD GLUCOSE 3 TIMES DAILY 200 each 1 10/01/2020 glucose monitoring kit (FREESTYLE) monitoring kit USE TO TEST BLOOD GLUCOSE 3 TIMES DAILY 1 kit 0 10/01/2020 blood glucose test strips (FREESTYLE LITE) stripIndications: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) TEST 3 TIMES DAILY 200 each 3 10/01/2020 metFORMIN (GLUCOPHAGE-XR) 500 MG extended release tablet Take 1 tablet by mouth 2 times daily (with meals) 180 tablet 0 10/01/2020 acetaminophen (APAP EXTRA STRENGTH) 500 MG tablet Take 2 tablets by mouth every 6 hours as needed for Pain 120 tablet 0 10/01/2020 ibuprofen (ADVIL;MOTRIN) 600 MG tablet Take 1 tablet by mouth 4 times daily as needed for Pain 60 tablet 0 10/01/2020 oxyCODONE (ROXICODONE) 5 MG immediate release tabletIndications:Post- operative state Take 1 tablet by mouth every 6 hours as needed for Pain for up to 12 doses. Intended supply: 3 days. Take lowest dose possible to manage pain 12 tablet 0 10/01/2020 10/05/2020 Lancets MISC 1 each by Does not apply route 3 times daily 200 each 1 10/01/2020 10/01/2020 blood glucose monitor strips Test 2-3 times a day & as needed for symptoms of irregular blood glucose. Dispense sufficient amount for indicated testing frequency plus additional to accommodate PRN testing needs. 200 strip 2 10/01/2020 10/01/2020 glucose monitoring kit (FREESTYLE) monitoring kit 1 kit by Does not apply route daily 1 kit 0 10/01/2020 10/01/2020 Care Teams (unrecognized sec tion and content) Pipeline Superintendent Division Relationship Specialty Start Date End Date Christy Leach MD [address] [place] [address], [address] [place] [phone] PCP - General 01/01/15 Pipeline Superintendent Division Relationship Specialty [place] [address] [place] [address], [address] [place] [address] PCP - General 01/01/15 Pipeline Superintendent Division Relationship Specialty [place] [address] [place] [address], [address] [place] [address] PCP - General 01/01/15 Pipeline Superintendent Division Relationship Specialty Start Date End Date Christy Mendze Jr. [address] [facility] [address] [place] [address] PCP - General Family Practice 09/16/21 Pipeline Superintendent Division Relationship Specialty Start Date End Date Christy Leach MD [address] [facility], [address] [place] [phone] PCP - General 01/01/15 Pipeline Superintendent Division Relationship Specialty Start Date End Date Christy Mendez Jr. [address] [facility] [address] [place] [phone] PCP - General Family Practice 09/16/21 Pipeline Superintendent Division Relationship Specialty Start Date End Date Christy Mendez Jr. [address] [facility] [address] [place] [phone] PCP - General Family Practice 09/16/21 Pipeline Superintendent Division Relationship Specialty Start Date End Date Christy Mendez Jr. [address] [facility] [address] [place] [phone] PCP - General Family Practice 09/16/21 Pipeline Superintendent Division Relationship Specialty Start Date End Date Christy Mendez Jr. [address] [facility] [address] [place] [phone] PCP - General Family Practice 09/16/21 Pipeline Superintendent Division Relationship Specialty Start Date End Date Christy Leach MD [address] [facility], [address] [place] [address] PCP - General 01/01/15 Pipeline Superintendent Division Relationship Specialty Start Date End Date PabloalbertoChristy [address] [facility] [address] [place] [phone] PCP - General Family Practice 09/16/21 Pipeline Superintendent Division Relationship Specialty Start Date End Date PabloalbertoChristy [address] [facility] [address] [place] [phone] PCP - General Family Practice 09/16/21 Pipeline Superintendent Division Relationship Specialty Start Date End Date Christy Leach MD [address] [facility], [address] [place] [address] PCP - General 01/01/15 Pipeline Superintendent Division Relationship Specialty Start Date End Date Christy Leach MD [address] [facility] [place] [address] PCP - General 01/01/15 Pipeline Superintendent Division Relationship Specialty Start Date End Date Christy Leach MD [address] [place] [phone] PCP - General 01/01/15 Pipeline Superintendent Division Relationship Specialty Start Date End Date Christy Leach MD [address] [facility] [address] [place] [phone] PCP - General 01/01/15 Pipeline Superintendent Division Relationship Specialty Start Date End Date Christy Leach MD [address] [facility] [address] [place] [phone] PCP - General 01/01/15 Pipeline Superintendent Division Relationship Specialty Start Date End Date Christy Leach MD [address] [place] [phone] PCP - General 01/01/15 Jaqueline Grayson, 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 [address] [address] Nurse Practitioner Certified Nurse Practitioner 11/03/22 Pipeline Superintendent Division Relationship Specialty Start Date End Date Christy Leach MD [address] [facility] [address] [place] [phone] PCP - General 01/01/15 Jaqueline Grayson, 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 [address] [address] Nurse Practitioner Certified Nurse Practitioner 11/03/22 Pipeline Superintendent Division Relationship Specialty Start Date End Date Christy Leach MD [address] [facility] [address] [place] [phone] PCP - General 01/01/15 Jaqueline Grayson, 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 [address] [address] Nurse Practitioner Certified Nurse Practitioner 11/03/22 Pipeline Superintendent Division Relationship Specialty Start Date End Date Christy Leach MD [address] [facility] [address] [place] [phone] PCP - General 01/01/15 Jaqueline Grayson, 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 [address] [address] Nurse Practitioner Certified Nurse Practitioner 11/03/22 Pipeline Superintendent Division Relationship Specialty Start Date End Date Christy Leach MD [address] [facility] [address] [place] [phone] PCP - General 01/01/15 Jaqueline Grayson, 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 [address] [place] [phone] Nurse Practitioner Certified Nurse Practitioner 11/03/22 Pipeline Superintendent Division Relationship Specialty Start Date End Date Christy Leach MD [address] [facility] [address] [place] [phone] PCP - General 01/01/15 Jaqueline Grayson, 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 [address] [place] [address] [phone] Nurse Practitioner Certified Nurse Practitioner 11/03/22 Pipeline Superintendent Division Relationship Specialty Start Date End Date Christy Leach MD [address] [facility] [address] [place] [phone] PCP - General 01/01/15 Jaqueline Grayson, 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 [address] [place] [phone] Nurse Practitioner Certified Nurse Practitioner 11/03/22 Pipeline Superintendent Division Relationship Specialty Start Date End Date Christy Leach MD [address] [facility] [address] [place] [phone] PCP - General 01/01/15 Jaqueline Grayson, 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 [address] [place] [address] [phone] Nurse Practitioner Certified Nurse Practitioner 11/03/22 Pipeline Superintendent Division Relationship Specialty Start Date End Date Christy Leach MD [address] [facility] [address] [place] [phone] PCP - General 01/01/15 Jaqueline Grayson APRN - 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 [address] [address] Nurse Practitioner Certified Nurse Practitioner 11/03/22 Pipeline Superintendent Division Relationship Specialty Start Date End Date Christy Leach MD [address] [place] [phone] PCP - General 01/01/15 Jaqueline Grayson 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 [address] [place] [phone] Nurse Practitioner Certified Nurse Practitioner 11/03/22 Pipeline Superintendent Division Relationship Specialty Start Date End Date Christy Leach MD [address] [facility] [address] [place] [phone] PCP - General 01/01/15 Jaqueline Grayson APRN - 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 [address] [place] [phone] Nurse Practitioner Certified Nurse Practitioner 11/03/22 Pipeline Superintendent Division Relationship Specialty Start Date End Date Christy Mendez Jr., MD [address] [facility] [address] [place] [phone] PCP - General Family Medicine 09/16/21 Pipeline Superintendent Division Relationship Specialty Start Date End Date Christy Leach MD [address] [facility] [address] [place] [phone] PCP - General 01/01/15 Jaqueline Grayson 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 [address] [place] [phone] Nurse Practitioner Certified Nurse Practitioner 11/03/22 Pipeline Superintendent Division Relationship Specialty Start Date End Date Christy Leach MD [address] [facility] [address] [place] [phone] PCP - General 01/01/15 Jaqueline Grayson 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 [address] [facility] [address] [place] [place] [address] Nurse Practitioner Certified Nurse Practitioner 11/03/22 Pipeline Superintendent Division Relationship Specialty Start Date End Date Christy Leach MD 3009 [facility] 200 [place] [phone] PCP - General 01/01/15 Jaqueline Grayson 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 161 [facility] 295 [place] [address] Nurse Practitioner Certified Nurse Practitioner 11/03/22 Pipeline Superintendent Division Relationship Specialty Start Date End Date Christy Leach MD 3009 [facility] [address] [place] [phone] PCP - General 01/01/15 Jaqueline Grayson, 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 [address] [address] Nurse Practitioner Certified Nurse Practitioner 11/03/22 Pipeline Superintendent Division Relationship Specialty Start Date End Date Christy Leach MD 3009 [facility] [address] [place] [phone] PCP - General 01/01/15 Jaqueline Grayson 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 [address] [place] [address] Nurse Practitioner Certified Nurse Practitioner 11/03/22 Pipeline Superintendent Division Relationship Specialty Start Date End Date Christy Leach MD [address] [place] [phone] PCP - General 01/01/15 Jaqueline Grayson, 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 [address] [place] [address] Nurse Practitioner Certified Nurse Practitioner 11/03/22 Pipeline Superintendent Division Relationship Specialty Start Date End Date Christy Leach MD 3009 [facility] [address] [place] [phone] PCP - General 01/01/15 Jaqueline Grayson, 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 [address] [place] [address] Nurse Practitioner Certified Nurse Practitioner 11/03/22 Pipeline Superintendent Division Relationship Specialty Start Date End Date Christy Leach MD 3009 [facility] [address] [place] [phone] PCP - General 01/01/15 Jaqueline Grayson, 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 [address] [place] [address] Nurse Practitioner Certified Nurse Practitioner 11/03/22 Pipeline Superintendent Division Relationship Specialty Start Date End Date Christy Leach MD 300[address] [facility] [address] [place] [phone] PCP - General 01/01/15 Jaqueline Grayson, 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 [address] [place] [address] Nurse Practitioner Certified Nurse Practitioner 11/03/22 Pipeline Superintendent Division Relationship Specialty Start Date End Date Christy Leach MD [address] [facility] [address] [place] [phone] PCP - General 01/01/15 Jaqueline Grayson, 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 [address] [place], [place] [id number] Nurse Practitioner Certified Nurse Practitioner 11/03/22 Pipeline Superintendent Division Relationship Specialty Start Date End Date Christy Leach MD 3009 [facility] [address] [place] [phone] PCP - General 01/01/15 Jaqueline Grayson, 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 [address] [place], [place] [address] Nurse Practitioner Certified Nurse Practitioner 11/03/22 Pipeline Superintendent Division Relationship Specialty Start Date End Date Christy Leach MD 3009 [facility] [address] [place] [phone] PCP - General 01/01/15 Jaqueline Grayson, 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 [address] [place] [address] Nurse Practitioner Certified Nurse Practitioner 11/03/22 Pipeline Superintendent Division Relationship Specialty Start Date End Date Christy Mendez Jr., MD [address] [facility] [address] [place] [phone] PCP - General Family Medicine 09/16/21 Pipeline Superintendent Division Relationship Specialty Start Date End Date Christy Leach MD [address] [facility] [address] [place] [phone] PCP - General 01/01/15 Jaqueline Grayson, 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 [address] [facility] [address] [place] [address] Nurse Practitioner Certified Nurse Practitioner 11/03/22 Anjana Meadows APRN - 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 [address] [facility] [address] [place] [address] Nurse Practitioner Nurse Practitioner 11/01/23 Pipeline Superintendent Division Relationship Specialty Start Date End Date Christy Leach MD [address] [facility] [address] [place] [phone] PCP - General 01/01/15 Jaqueline Grayson, 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 161 [address] [facility] [address] [place] [address] Nurse Practitioner Certified Nurse Practitioner 11/03/22 Anjana Meadows APRN - 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 [address] [facility] [place] [address] Nurse Practitioner Nurse Practitioner 11/01/23 Cuauhtemoc Stubbs MD [address] [facility] [address] [place] [address] Consulting Physician Gynecologic Oncology 11/05/23 Pipeline Superintendent Division Relationship Specialty Start Date End Date Christy Leach MD 3009 [facility] [address] [place] [phone] PCP - General 01/01/15 Jaqueline Grayson APRN - 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 161 [facility] [address] [place] [address] Nurse Practitioner Certified Nurse Practitioner 11/03/22 Anjana Meadows APRN - [facility] 161 [facility] [address] [place] [address] Nurse Practitioner Nurse Practitioner 11/01/23 Pipeline Superintendent Division Relationship Specialty Start Date End Date Christy Leach MD [address] [place] [address] [place] [phone] PCP - General 01/01/15 Jaqueline Grayson APRN - 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 161 [facility] [address] [place] [address] Nurse Practitioner Certified Nurse Practitioner 11/03/22 Anjana Meadows APRN - [facility] 161 [facility] [address] [place] [address] Nurse Practitioner Nurse Practitioner 11/01/23 Cuauhtemoc Stubbs MD 161 [facility] [address] [place] [address] Consulting Physician Gynecologic Oncology 11/05/23 Pipeline Superintendent Division Relationship Specialty Start Date End Date Christy Mendez Jr., MD [address] [place] [phone] PCP - General Family Medicine 09/16/21 Pipeline Superintendent Division Relationship Specialty Start Date End Date Christy Leach MD [address] [place] [address] [place] [phone] PCP - General 01/01/15 Jaqueline Grayson APRN - 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 161 [facility] [address] [place] [address] Nurse Practitioner Certified Nurse Practitioner 11/03/22 Anjana Meadows APRN - 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 161 [facility] [address] [place] [address] Nurse Practitioner Nurse Practitioner 11/01/23 Cuauhtemoc Stubbs MD 161 [facility] [address] [place] [address] Consulting Physician Gynecologic Oncology 11/05/23 Pipeline Superintendent Division Relationship Specialty Start Date End Date Christy Leach MD [address] [place] [phone] PCP - General 01/01/15 Jaqueline Grayson APRN - 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 161 [facility] [address] [place] [address] Nurse Practitioner Certified Nurse Practitioner 11/03/22 Anjana Meadows APRN - 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 161 [facility] [address] [place] [address] Nurse Practitioner Nurse Practitioner 11/01/23 Cuauhtemoc Stubbs MD 161 [facility] [address] [place], [place] [address] Consulting Physician Gynecologic Oncology 11/05/23 Pipeline Superintendent Division Relationship Specialty Start Date End Date Christy Leach MD [address] [place] [address] [place] [phone] PCP - General 01/01/15 Jaqueline Grayson APRN - 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 [address] [place], [place] [address] Nurse Practitioner Certified Nurse Practitioner 11/03/22 Anjana Meadows APRN - 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 [address] [facility] [place], [place] [phone] Nurse Practitioner Nurse Practitioner 11/01/23 Cuauhtemoc Stubbs MD [address] [facility] [address] [place] [address] Consulting Physician Gynecologic Oncology 11/05/23 Pipeline Superintendent Division Relationship Specialty Start Date End Date Christy Leach MD [address] [place] [phone] PCP - General 01/01/15 Jaqueline Grayson APRN - 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 [address] [facility] [address] [place], [place] [address] Nurse Practitioner Certified Nurse Practitioner 11/03/22 Anjana Meadows APRN - 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 [address] [facility] [place] [address] Nurse Practitioner Nurse Practitioner 11/01/23 Cuauhtemoc Stubbs MD [address] [facility] [address] [place], [place] [address] Consulting Physician Gynecologic Oncology 11/05/23 Pipeline Superintendent Division Relationship Specialty Start Date End Date Christy Leach MD [address] [place] [phone] PCP - General 01/01/15 Jaqueline Grayson 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 [address] [place], [place] [phone] Nurse Practitioner Certified Nurse Practitioner 11/03/22 Anjana Meadows APRN - 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 [address] [facility] [place] [address] Nurse Practitioner Nurse Practitioner 11/01/23 Cuauhtemoc Stubbs MD [address] [place] [address] Consulting Physician Gynecologic Oncology 11/05/23 Pipeline Superintendent Division Relationship Specialty Start Date End Date Christy Leach MD [address] [place] [phone] PCP - General 01/01/15 Jaqueline Grayson 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 [address] [facility] [address] [place] [address] Nurse Practitioner Certified Nurse Practitioner 11/03/22 Anjana Meadows 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 [address] [facility] [place] [address] Nurse Practitioner Nurse Practitioner 11/01/23 Cuauhtemoc Stubbs MD [address] [facility] [address] [place] [address] Consulting Physician Gynecologic Oncology 11/05/23 Pipeline Superintendent Division Relationship Specialty Start Date End Date Christy Leach MD [address] [place] [phone] PCP - General 01/01/15 Jaqueline Grayson 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 [address] [place] [address] Nurse Practitioner Certified Nurse Practitioner 11/03/22 Anjana Meadows APRN - 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 [address] [place] [address] Nurse Practitioner Nurse Practitioner 11/01/23 Cuauhtemoc Stubbs MD [address] [place] [address] Consulting Physician Gynecologic Oncology 11/05/23 Pipeline Superintendent Division Relationship Specialty Start Date End Date Christy Leach MD [address] [place] [phone] PCP - General 01/01/15 Jaqueline Grayson 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 [address] [place] [address] Nurse Practitioner Certified Nurse Practitioner 11/03/22 Anjana Meadows APRN - 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 [address] [facility] [place] [address] Nurse Practitioner Nurse Practitioner 11/01/23 Cuauhtemoc Stubbs MD [address] [place] [address] Consulting Physician Gynecologic Oncology 11/05/23 Pipeline Superintendent Division Relationship Specialty Start Date End Date Christy Mendez Jr., MD [address] [place] [phone] PCP - General Family Medicine 09/16/21 Pipeline Superintendent Division Relationship Specialty Start Date End Date Christy Leach MD 3009 [facility] [address] [place] [phone] PCP - General 01/01/15 Pipeline Superintendent Division Relationship Specialty Start Date End Date Christy Leach MD 300[address] [facility] [address] [place] [address] PCP - General 01/01/15 Pipeline Superintendent Division Relationship Specialty Start Date End Date Christy Leach MD 300[address] [facility] [address] [place] [phone] PCP - General 01/01/15 Pipeline Superintendent Division Relationship Specialty Start Date End Date Christy Leach MD 300[address] [facility] [address] [place] [phone] PCP - General 01/01/15 Pipeline Superintendent Division Relationship Specialty Start Date End Date Christy Leach MD 300[address] [facility] [address] [place] [phone] PCP - General 01/01/15 Pipeline Superintendent Division Relationship Specialty Start Date End Date Christy Leach MD [address] [facility] [address] [place] [phone] PCP - General 01/01/15 Jaqueline Grayson, 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 [address] [place] [address] Nurse Practitioner Certified Nurse Practitioner 11/03/22 Anjana Meadows APRN - 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 [address] [place] [address] Nurse Practitioner Nurse Practitioner 11/01/23 Cuauhtemoc Stubbs MD [address] [place] [address] Consulting Physician Gynecologic Oncology 11/05/23 Pipeline Superintendent Division Relationship Specialty Start Date End Date Christy Leach MD 3009 [facility] [address] [place] [phone] PCP - General 01/01/15 Jaqueline Grayson 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 [address] [place] [address] Nurse Practitioner Certified Nurse Practitioner 11/03/22 Anjana Meadows APRN - 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 [address] [place] [address] Nurse Practitioner Nurse Practitioner 11/01/23 Cuauhtemoc Stubbs MD [address] [facility] [address] [place] [address] Consulting Physician Gynecologic Oncology 11/05/23 Pipeline Superintendent Division Relationship Specialty Start Date End Date Christy Leach MD 3009 [facility] [address] [place] [phone] PCP - General 01/01/15 Jaqueline Grayson 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 [address] [place] [address] Nurse Practitioner Certified Nurse Practitioner 11/03/22 Anjana Meadows APRN - 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 [address] [facility] [place] [address] Nurse Practitioner Nurse Practitioner 11/01/23 Cuauhtemoc Stubbs MD [address] [place] [address] Consulting Physician Gynecologic Oncology 11/05/23 Pipeline Superintendent Division Relationship Specialty Start Date End Date Christy Leach MD 3009 [facility] [address] [place] [phone] PCP - General 01/01/15 Jaqueline Grayson 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 [address] [place] [address] Nurse Practitioner Certified Nurse Practitioner 11/03/22 Anjana Meadows APRN - 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 [address] [place] [address] Nurse Practitioner Nurse Practitioner 11/01/23 Cuauhtemoc Stubbs MD [address] [place] [address] Consulting Physician Gynecologic Oncology 11/05/23 Pipeline Superintendent Division Relationship Specialty Start Date End Date Christy Leach MD 300[address] [facility] [address] [place] [phone] PCP - General 01/01/15 Jaqueline Grayson 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 [address] [place] [address] Nurse Practitioner Certified Nurse Practitioner 11/03/22 Anjana Meadows APRN - 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 [address] [place] [address] Nurse Practitioner Nurse Practitioner 11/01/23 Cuauhtemoc Stubbs MD [address] [facility] [place] [address] Consulting Physician Gynecologic Oncology 11/05/23 Pipeline Superintendent Division Relationship Specialty Start Date End Date Christy Leach MD 3009 [facility] [address] [place] [phone] PCP - General 01/01/15 Jaqueline Grayson APRN - 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 [address] [place] [address] Nurse Practitioner Certified Nurse Practitioner 11/03/22 Anjana Meadows APRN - 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 [address] [place] [address] Nurse Practitioner Nurse Practitioner 11/01/23 Cuauhtemoc Stubbs MD [address] [facility] [address] [place] [address] Consulting Physician Gynecologic Oncology 11/05/23 Pipeline Superintendent Division Relationship Specialty Start Date End Date Christy Leach MD 3009 [facility] [address] [place] [phone] PCP - General 01/01/15 Jaqueline Grayson APRN - 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 [address] [place] [address] Nurse Practitioner Certified Nurse Practitioner 11/03/22 Anjana Meadows APRN - 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 [address] [place] [address] Nurse Practitioner Nurse Practitioner 11/01/23 Cuauhtemoc Stubbs MD [address] [place] [address] Consulting Physician Gynecologic Oncology 11/05/23 Pipeline Superintendent Division Relationship Specialty Start Date End Date Christy Leach MD [address] [place] [phone] PCP - General 01/01/15 Jaqueline Grayson APRN - 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 [address] [place] [address] Nurse Practitioner Certified Nurse Practitioner 11/03/22 Anjana Meadows APRN - 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 [address] [place] [address] Nurse Practitioner Nurse Practitioner 11/01/23 Cuauhtemoc Stubbs MD [address] [place] [address] Consulting Physician Gynecologic Oncology 11/05/23 Pipeline Superintendent Division Relationship Specialty Start Date End Date Christy Leach MD [address] [place] [phone] PCP - General 01/01/15 Jaqueline Grayson APRN - 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 [address] [place] [address] Nurse Practitioner Certified Nurse Practitioner 11/03/22 Anjana Meadows APRN - 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 [address] [place] [address] Nurse Practitioner Nurse Practitioner 11/01/23 Cuauhtemoc Stubbs MD [address] [place] [address] Consulting Physician Gynecologic Oncology 11/05/23 Pipeline Superintendent Division Relationship Specialty Start Date End Date Christy Leach MD [address] [facility] [address] [place] [phone] PCP - General 01/01/15 Jaqueline Grayson 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 [address] [place] [address] Nurse Practitioner Certified Nurse Practitioner 11/03/22 Anjana Meadows APRN - 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 [address] [place] [address] Nurse Practitioner Nurse Practitioner 11/01/23 Cuauhtemoc Stubbs MD [address] [place] [address] Consulting Physician Gynecologic Oncology 11/05/23 Pipeline Superintendent Division Relationship Specialty Start Date End Date Christy Leach MD 3009 [facility] [address] [place] [phone] PCP - General 01/01/15 Jaqueline Grayson 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 [address] [place] [address] Nurse Practitioner Certified Nurse Practitioner 11/03/22 Anjana Meadows 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 [address] [place] [address] Nurse Practitioner Nurse Practitioner 11/01/23 Cuauhtemoc Stubbs MD [address] [place] [address] Consulting Physician Gynecologic Oncology 11/05/23 Pipeline Superintendent Division Relationship Specialty Start Date End Date Christy Leach MD [address] [place] [phone] PCP - General 01/01/15 Jaqueline Grayson 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 [address] [place] [address] Nurse Practitioner Certified Nurse Practitioner 11/03/22 Anjana Meadows 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 [address] [place] [address] Nurse Practitioner Nurse Practitioner 11/01/23 Cuauhtemoc Stubbs MD [address] [place] [address] Consulting Physician Gynecologic Oncology 11/05/23 Pipeline Superintendent Division Relationship Specialty Start Date End Date Christy Leach MD [address] [place] [phone] PCP - General 01/01/15 Jaqueline Grayson 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 [address] [place] [address] Nurse Practitioner Certified Nurse Practitioner 11/03/22 Anjana Meadows, 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 [address] [place] [address] Nurse Practitioner Nurse Practitioner 11/01/23 Cuauhtemoc Stubbs MD [address] [place] [address] Consulting Physician Gynecologic Oncology 11/05/23 Pipeline Superintendent Division Relationship Specialty Start Date End Date Christy Leach MD 3009 [facility] [address] [place] [phone] PCP - General 01/01/15 Jaqueline Grayson, 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 [address] [place] [address] Nurse Practitioner Certified Nurse Practitioner 11/03/22 Anjana Meadows 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 [address] [place] [address] Nurse Practitioner Nurse Practitioner 11/01/23 Cuauhtemoc Stubbs MD [address] [place] [address] Consulting Physician Gynecologic Oncology 11/05/23 Pipeline Superintendent Division Relationship Specialty Start Date End Date Christy Leach MD [address] [facility] [address] [place] [phone] PCP - General 01/01/15 Jaqueline Grayson, 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 [address] [place] [address] Nurse Practitioner Certified Nurse Practitioner 11/03/22 Anjana Meadows, 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 [address] [place] [address] Nurse Practitioner Nurse Practitioner 11/01/23 Cuauhtemoc Stubbs MD [address] [place] [address] Consulting Physician Gynecologic Oncology 11/05/23 Pipeline Superintendent Division Relationship Specialty Start Date End Date Christy Leach MD [address] [place] [phone] PCP - General 01/01/15 Jaqueline Grayson, MOTORCYCLE REPAIRER - [facility] [address] [place] [address] Nurse Practitioner Certified Nurse Practitioner 11/03/22 Anjana Meadows MOTORCYCLE REPAIRER - [facility] [address] [facility] [place] [address] Nurse Practitioner Nurse Practitioner 11/01/23 Cuauhtemoc Stubbs MD [address] [facility] [address] [place] [address] Consulting Physician Gynecologic Oncology 11/05/23 Pipeline Superintendent Division Relationship Specialty Start Date End Date Christy Leach MD [address] [place] [phone] PCP - General 01/01/15 Jaqueline Grayson, MOTORCYCLE REPAIRER - [facility] [address] [facility] [address] [place] [address] Nurse Practitioner Certified Nurse Practitioner 11/03/22 Anjana Meadows, MOTORCYCLE REPAIRER - [facility] [address] [facility] [place] [address] Nurse Practitioner Nurse Practitioner 11/01/23 Cuauhtemoc Stubbs MD [address] [facility] [address] [place] [address] Consulting Physician Gynecologic Oncology 11/05/23 Pipeline Superintendent Division Relationship Specialty Start Date End Date Christy Leach MD [address] [place] [phone] PCP - General 01/01/15 Jaqueline Grayson APRN - CASTING PLUG ASSEMBLER [address] [facility] [facility] [address] [place] [address] Nurse Practitioner Certified Nurse Practitioner 11/03/22 Anjana Meadows APRN - CASTING PLUG ASSEMBLER [address] [facility]. [address] [place] [address] Nurse Practitioner Nurse Practitioner 11/01/23 Cuauhtemoc Stubbs MD [address] [facility] [address] [place] [address] Consulting Physician Gynecologic Oncology 11/05/23 Pipeline Superintendent Division Relationship Specialty Start Date End Date Christy Leach MD [address] [facility] [address] [place] [phone] PCP - General 01/01/15 Jaqueline Grayson 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 [address] [facility] [address] [place] [address] Nurse Practitioner Certified Nurse Practitioner 11/03/22 Anjana Meadows 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 [address] [facility]. [address] [place] [address] Nurse Practitioner Nurse Practitioner 11/01/23 Cuauhtemoc Stubbs MD [address] [facility] [address] [place] [address] Consulting Physician Gynecologic Oncology 11/05/23 Pipeline Superintendent Division Relationship Specialty Start Date End Date Christy Leach MD [address] [facility] [address] [place] [phone] PCP - General 01/01/15 Jaqueline Grayson 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 [address] [facility] [address] [place] [address] Nurse Practitioner Certified Nurse Practitioner 11/03/22 Anjana Meadows 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 161 [facility] [address] [place] [address] Nurse Practitioner Nurse Practitioner 11/01/23 Cuauhtemoc Stubbs MD [address] [facility] [address] [place] [address] Consulting Physician Gynecologic Oncology 11/05/23 Pipeline Superintendent Division Relationship Specialty Start Date End Date Christy Leach MD [address] [place] [phone] PCP - General 01/01/15 Jaqueline Grayson 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 161 [facility] [address] [place] [address] Nurse Practitioner Certified Nurse Practitioner 11/03/22 Anjana Meadows 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 [address] [facility] [address] [place] [address] Nurse Practitioner Nurse Practitioner 11/01/23 Cuauhtemoc Stubbs MD [address] [facility] [address] [place] [address] Consulting Physician Gynecologic Oncology 11/05/23 Pipeline Superintendent Division Relationship Specialty Start Date End Date Christy Leach MD [address] [place] [phone] PCP - General 01/01/15 Jaqueline Grayson APRN - CNP [address] [facility] [address] [place] [address] Nurse Practitioner Certified Nurse Practitioner 11/03/22 Anjana Meadows APRN - CNP [address] [facility] [place] [address] Nurse Practitioner Nurse Practitioner 11/01/23 Cuauhtemoc Stubbs MD [address] [facility] [address] [place], [place] [id number] Consulting Physician Gynecologic Oncology 11/05/23 Source Comments (unrecognize d section and content) In the event this informatio n is protected by the Federal Confidentiality of Alcohol and Drug Abuse Patient Records regulations: The Federal rules restrict any use of the information to criminally investigate or prosecute any alcohol or drug abuse patient.[facility] the event this information is protected by the Federal Confidentiality of Alcohol and Drug Abuse Patient Records regulations: The Federal rules restrict any use of the information to criminally investigate or prosecute any alcohol or drug abuse patient.[facility] the event this information is protected by the Federal Confidentiality of Alcohol and Drug Abuse Patient Records regulations: The Federal rules restrict any use of the information to criminally investigate or prosecute any alcohol or drug abuse patient.[facility] the event this information is protected by the Federal Confidentiality of Alcohol and Drug Abuse Patient Records regulations: The Federal rules restrict any use of the information to criminally investigate or prosecute any alcohol or drug abuse patient.[facility] Hospital[facility] the event this information is protected by the Federal Confidentiality of Alcohol and Drug Abuse Patient Records regulations: The Federal rules restrict any use of the information to criminally investigate or prosecute any alcohol or drug abuse patient.[facility] Hospital[facility] the event this information is protected by the Federal Confidentiality of Alcohol and Drug Abuse Patient Records regulations: The Federal rules restrict any use of the information to criminally investigate or prosecute any alcohol or drug abuse patient.[facility] Hospital[facility] the event this information is protected by the Federal Confidentiality of Alcohol and Drug Abuse Patient Records regulations: The Federal rules restrict any use of the information to criminally investigate or prosecute any alcohol or drug abuse patient.[facility] Hospital[facility] the event this information is protected by the Federal Confidentiality of Alcohol and Drug Abuse Patient Records regulations: The Federal rules restrict any use of the information to criminally investigate or prosecute any alcohol or drug abuse patient.[facility] Hospital[facility] the event this information is protected by the Federal Confidentiality of Alcohol and Drug Abuse Patient Records regulations: The Federal rules restrict any use of the information to criminally investigate or prosecute any alcohol or drug abuse patient.[facility] Hospital[facility] the event this information is protected by the Federal Confidentiality of Alcohol and Drug Abuse Patient Records regulations: The Federal rules restrict any use of the information to criminally investigate or prosecute any alcohol or drug abuse patient.[facility] Hospital[facility] the event this information is protected by the Federal Confidentiality of Alcohol and Drug Abuse Patient Records regulations: The Federal rules restrict any use of the information to criminally investigate or prosecute any alcohol or drug abuse patient.[facility] HospitalIn the event this information is protected by the Federal Confidentiality of Alcohol and Drug Abuse Patient Records regulations: The Federal rules restrict any use of the information to criminally investigate or prosecute any alcohol or drug abuse patient.[facility] HospitalIn the event this information is protected by the Federal Confidentiality of Alcohol and Drug Abuse Patient Records regulations: The Federal rules restrict any use of the information to criminally investigate or prosecute any alcohol or drug abuse patient.[facility] HospitalIn the event this information is protected by the Federal Confidentiality of Alcohol and Drug Abuse Patient Records regulations: The Federal rules restrict any use of the information to criminally investigate or prosecute any alcohol or drug abuse patient.[facility] HospitalIn the event this information is protected by the Federal Confidentiality of Alcohol and Drug Abuse Patient Records regulations: The Federal rules restrict any use of the information to criminally investigate or prosecute any alcohol or drug abuse patient.[facility] Reason for Visit (unrecogniz ed section and content) Reason Comments Appointment a-scan reminder call Reason Comments Appointment sx Reason Comments Preparations For Surgery iol os Reason Comments Post-op (Ophthalmology) Left Eye Reason Comments Post-op Cataract OS 1 week Reason Comments Preparations For Surgery iol od Reason Comments Post-op (Ophthalmology) Right Eye 1 day Reason Comments Post-op Cataract OD 1 week Reason Comments Post-op (Ophthalmology) Both Eyes OS: ; OD: 12/06/2021 Reason Comments Primary Open Angle Glaucoma Follow Up Reason Comments Wound Care Reason Comments Follow-up Pt has no concerns. Reason Comments Wound Check Reason Comments Wound Care Nurse visit Reason Comments Diabetes Follow-up Hyperglycemia Reason Comments Dressing Change Reason Comments Follow-up Here for follow up w ith Dr. He Reason Comments Diabetes DSME Reason Comments Wound Care N/V Reason Comments Follow-up DM2 Reason Onset Date Comments OTHER 05/09/2023 Reason Comments Follow-up Reason Comments Med Refill Reason Comments Dressing Change Nurse visit / wrap c hange Reason Comments Follow-up 6 month follow up. N o concerns Reason Comments Diabetes Mellitus Hyperglycemia Follow-up Reason Comments Nonproliferative Diabetic Retinopathy Fo llow Up X 6 Months Reason Comments Dressing Change Nurse visit for prof ore changes. Specialty Diagnoses / Procedures Referred By Elias t Referred To Contact Radiology Diagnoses Endometrial cancer (CMS/HCC) (HCC) Procedures CT abdomen pelvis w contrast Anjana Meadows, 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 [address] [facility] [place] [address] [facility] [address] [facility] [address] [place] [address] Referral ID Status Reason Start Date Expiration Date Visits Re quested Visits Authorized [id number] Closed 11/01/2023 10/31/2024 1 1 Reason Comments Wound Care Nurse Visit/Bilat. P rofore change Reason Comments Other Specialty Diagnoses / Procedures Referred By Contac t Referred To Contact Cardiology Diagnoses Essential (primary) hypertension Cardiac murmur, unspecified Procedures Transthoracic echocardiogram (TTE) complete with contrast, bubble, strain, and 3D PRN OR ECHO TTHRC R-T 2D W/WOM-MODE COMPL SPEC&COLR D OR TTE W OR WO FOL WCON,DOPPLER Christy Leach MD [address] [phone] [facility]-Invasive Cardiology [address] [facility] [address] [place] [address] Referral ID Status Reason Start Date Expiration Date Visits Re quested Visits Authorized [id number] Closed 02/28/2024 02/27/2025 1 1 Reason Onset Date Comments Appointment Request 03/17/[address] Reason [address] Visit Reason Comments Comprehensive Health Assessment Reason Onset Date Comments Forms/questionnaires 07/31/2022 Reason Onset Date Comments Results 10/06/2022 Recent lab resul ts from pcp Reason Comments Altered Mental Status Hyperglycemia Pt arrived for hyper glycemia, confusion and lightheadedness for past couple of days. Specialty Diagnoses / Procedures Referred By Contdaphne t Referred To Contact Diagnoses Hyperglycemia Procedures . Wilner Kingston MD [address] [place] [address] Phone: tel: fax: [facility] [address] [place] [phone] Phone: tel: Referral ID Status Reason Start Date Expiration Date Visits Re quested Visits Authorized [id number] 1 1 Reason Onset Date Comments Hypertension 12/04/2024 Reason Comments Endometrial Cancer Specialty Diagnoses / Procedures Referred By Contac t Referred To Contact Gynecologic Oncology Diagnoses Malignant neoplasm of corpus uteri, unspecified (HCC) Procedures OUTPATIENT SERVICES-GENERAL Christy Leach MD [address] [facility] [address] [place] [address] Phone: tel: fax: Cuauhtemoc Stubbs MD [address] [facility] [address] [place] [address] Phone: tel: fax: Referral ID Status Reason Start Date Expiration Date V isits Requested Visits Authorized [id number] Pending Review 12/05/2024 12/05/2025 1 1 Reason Onset Date Comments Hypertension 12/23/2024 Reason Onset Date Comments Blood Sugar Problem 11/01/2024 Reason Comments Weakness, Gen Pt arrives from home by ems stating she has felt weak for multiple days and thinks she might have a UTI. Specialty Diagnoses / Procedures Referred By Contdaphne t Referred To Contact Diagnoses Hyperglycemia Ulcer of abdomen wall, limited to breakdown of skin Diabetic ketoacidosis without coma associated with diabetes mellitus due to underlying condition (HCC) Pressure injury of right buttock, stage 2 (CMS/HCC) Pressure injury of sacral region, stage 1 Procedures . Jennifer Taylor DO [address] [place] [address] Phone: tel: fax: [facility] [address] [place] [phone] Phone: tel: Referral ID Status Reason Start Date Expiration Date Visits Re quested Visits Authorized [id number] 1 1 Scheduled Active and Recently Administ ered Medications (unrecognized section and content) Medication Order 11/03/2024 11/04/2024 11/05/2024 apixaban (Eliquis) tablet 5 mg 5 mg, Oral, 2 times daily, First dose on 11/02/24 at 0920, Anticoagulant 0804 (Given - Provider: Rayne Kerr RN)2141 (Given - Provider: Deepika Pantoja RN) 08 (Given - Provider: Brooks Sawyer RN)2155 (Given - Provider: Gisel Sam RN) 09 (Given - Provider: Rayne N. Klauka, RN) atorvastatin (Lipitor) tablet 40 mg 40 mg, Oral, Daily, First dose on Sun11/02/24 at 0900 0804 (Given - Provider: Rayne Kerr RN) 0815 (Given - Provider: Brooks Sawyer RN) 0923 (Given - Provider: Rayne Kerr RN) brimonidine (AlphaGAN) 0.2 % ophthalmic solution 1 drop 1 drop, Both Eyes, 3 times daily, First dose on Sun11/02/24 at 0900, Substituted for brimonidine (Alphagan P) 0.1% or 0.15%. 0900 (Not Given - Provider: Rayne Kerr RN - Reason: Patient/family refused)1400 (Not Given - Provider: Rayne Kerr RN - Reason: Patient/family refused)2142 (Given - Provider: Deepika Pantoja RN) 0816 (Given - Provider: Brooks Sawyer RN)1320 (Given - Provider: Brooks Sawyer RN)2200 (Given - Provider: Gisel Sam RN) 0923 (Given - Provider: Rayne Kerr RN)1400 (Not Given - Provider: Rayne Kerr RN - Reason: Patient/family refused) cefTRIAXone (Rocephin) 1,000 mg in sodium chloride 0.9 % 50 mL IVPB Mini-Bag Plus (CANCELED) 1,000 mg, IntraVENous, at 100 mL/hr, Administer over 30 Minutes, Every 24 hours, First dose on Sun11/02/24 at 2100, Mini-Bag Plus bag, Suspected Indication (Select all that apply): Urinary Tract Infection 2348 (New Bag - Provider: Deepika Pantoja RN - Comment: loss of iv access) 0018 (Stopped - Provider: Deepika Pantoja, VALENTÍN) cephalexin (Keflex) capsule 500 mg 500 mg, Oral, 2 times daily, First dose on Sun11/04/24 at 1000, For 4 doses, Suspected Indication (Select all that apply): Urinary Tract Infection 1322 (Given - Provider: Brooks Sawyer RN)2156 (Given - Provider: Gisel Sam RN) 0923 (Given - Provider: Rayne N. Klauka, RN) insulin glargine (Lantus) injection 24 Units 24 Units, SubCUTAneous, Nightly, First dose (after last modification) on 11/02/24 at 2100 2141 (Given - Provider: Deepika Pantoja, VALENTÍN) 2155 (Given - Provider: Gisel Sam, RN) Insulin Lispro (Humalog) injection 0-18 Units(Linked Group 1) 0-18 Units, SubCUTAneous, 3 times daily with meals, First dose on 11/02/24 at 0800, High Dose Correction Algorithm Glucose: Dose: LESS than 150 No Insulin 150-199 3 Units 200-249 6 Units 250-299 9 Units 300-349 12 Units 350-400 15 Units Above 400 18 Units 0803 (Given - Provider: Rayne Kerr RN)1213 (Given - Provider: Rayne Kerr RN)1712 (Given - Provider: Rayne Kerr RN) 0815 (Given - Provider: Brooks Sawyer RN)1228 (Given - Provider: Jeannette Damian RN - Comment: BGT 186)1839 (Given - Provider: Brooks Sawyer RN) 0922 (Given - Provider: Rayne Kerr, VALENTÍN)1200 (Not Given - Provider: Rayne Kerr RN - Reason: Patient/family refused)1700 (Canceled Entry - Provider: Automatic Discharge Provider - Comment: Automatically canceled at discontinue of medication order) Insulin Lispro (Humalog) injection 0-18 Units(Linked Group 1) 0-18 Units, SubCUTAneous, Nightly, First dose on 11/02/24 at 2100, If eating or bolus tube feeding: High Dose Correction Algorithm Glucose: Dose: LESS than 150 No Insulin 150-199 3 Units 200-249 6 Units 250-299 9 Units 300-349 12 Units 350-400 15 Units Above 400 18 Units 2141 (Given - Provider: Deepika Pantoja RN) 2156 (Given - Provider: Gisel Sam, VALENTÍN) Insulin Lispro (Humalog) injection 8 Units 8 Units, SubCUTAneous, 3 times daily with meals, First dose on 11/02/24 at 1200 0804 (Given - Provider: Rayne Kerr RN)1213 (Given - Provider: Rayne Kerr RN)1713 (Given - Provider: Rayne Kerr RN) 0816 (Given - Provider: Brooks Sawyer, VALENTÍN)1228 (Given - Provider: Jeannette Damian RN)1839 (Given - Provider: Brooks Sawyer RN) 0922 (Given - Provider: Rayne Kerr RN)1200 (Not Given - Provider: Rayne Kerr RN - Reason: Patient/family refused)1700 (Canceled Entry - Provider: Automatic Discharge Provider - Comment: Automatically canceled at discontinue of medication order) levothyroxine (Synthroid, Levoxyl) tablet 175 mcg 175 mcg, Oral, Daily before breakfast, First dose on Sun11/02/24 at 0600, Tube feeding (TF) interaction, obtain physician order to manage, recommend holding TF for 30 minutes before and after dose. 0557 (Given - Provider: Deepika Pantoja RN) 0557 (Given - Provider: Deepika Pantoja RN) 0538 (Given - Provider: Gisel Sam RN) metoprolol tartrate (Lopressor) tablet 25 mg (CANCELED) 25 mg, Oral, 2 times daily, First dose on Sun11/02/24 at 0250 0804 (Given - Provider: Rayne Kerr RN) metoprolol tartrate (Lopressor) tablet 25 mg (COMPLETED) 25 mg, Oral, Once, On Sun11/03/24 at 1215, For 1 dose 1213 (Given - Provider: Rayne Kerr RN) metoprolol tartrate (Lopressor) tablet 50 mg 50 mg, Oral, 2 times daily, First dose (after last modification) on Sun11/03/24 at 2100 2142 (Given - Provider: Deepika Pantoja RN) 0815 (Given - Provider: Brooks Sawyer RN)2156 (Given - Provider: iGsel Sam RN) 0923 (Given - Provider: Rayne Kerr RN) timolol (Timoptic) 0.5 % ophthalmic solution 1 drop 1 drop, Both Eyes, 2 times daily, First dose on Sun11/02/24 at 0245 0900 (Not Given - Provider: Rayne Kerr RN - Reason: Patient/family refused)2141 (Given - Provider: Deepika Pantoja, RN) 08 (Given - Provider: Brooks Sawyer, VALENTÍN)215 (Given - Provider: Gisel Sam, VALENTÍN) 09 (Given - Provider: Rayne Kerr RN) Continuous Medication Order 11/03/2024 11/04/2024 11/05/2024 sodium chloride 0.9 % infusion (CANCELED) 75 mL/hr, IntraVENous, Continuous, Starting on 11/02/24 at 0245 1212 (New Bag - Provider: Rayne Kerr RN)1500 (Stopped - Provider: Rayne Kerr RN) PRN Medication Order 11/03/2024 11/04/2024 11/05/2024 acetaminophen (Tylenol) tablet 650 mg 650 mg, Oral, Every 6 hours PRN, mild pain (1-3), Starting on 11/04/24 at 1631, Maximum dose of acetaminophen is 4000 mg from all sources in 24 hours. albuterol 108 (90 Base) MCG/ACT inhaler 2 puff 2 puff, Inhalation, Every 6 hours PRN, wheezing, Starting on 11/02/24 at 0243 dextrose 10 % infusion 200 mL/hr, IntraVENous, Continuous PRN, blood glucose LESS than or EQUAL to 150 mg/dL, Starting on 11/02/24 at 0243, When blood glucose equals 150 mg/dL or below, DISCONTINUE dextrose 5 % and 0.45 % sodium chloride IV Fluid using Per Protocol order mode and start using this dextrose 10% IV fluid order. DO NOT restart saline or dextrose 5 % and 0.45 % sodium chloride infusion if subsequent blood glucose returns above 150 mg/dL. dextrose 5 % and sodium chloride 0.45 % infusion 250 mL/hr, IntraVENous, Continuous PRN, blood glucose LESS than or EQUAL to 250 mg/dL, Starting on 11/01/24 at 1908, When blood glucose equals 250 mg/dL or below, DISCONTINUE saline IV Fluid using Per Protocol order mode and start using this dextrose containing IV fluid order. DO NOT restart saline infusion if subsequent blood glucose returns above 250 mg/dL. dextrose 5 % infusion 100 mL/hr, IntraVENous, PRN, Blood sugar less than 70mg/dL, Starting on 11/01/24 at 2330, Start infusion following administration of dextrose 50% or glucagon. dextrose 50 % solution 12.5 g 12.5 g, IntraVENous, PRN, low blood sugar, Blood glucose less than 70 mg/dL and patient NOT ALERT or NPO., Starting on 11/01/24 at 2330, If patient does not respond within 5 minutes, repeat dose x1. Start D5W at 100 mL/hour until ordering provider can be reached. Repeat blood glucose in 15 minutes. If blood glucose is less than 70 mg/dL, repeat treatment and recheck blood glucose in 15 minutes x2. If using Glucostabilizer, dose as instructed per system. glucagon (human recombinant) injection 1 mg 1 mg, IntraMUSCular, PRN, low blood sugar, Blood glucose less than 70 mg/dL and patient NOT ALERT or NPO and does not have IV access., Starting on 11/01/24 at 2330, After administration, attempt intravenous access and start D5W at 100 mL/hr. Repeat blood glucose in 15 minutes x2 and notify provider. glucose oral gel 15 g 15 g, Oral, As needed, low blood sugar, Starting on 11/01/24 at 2330, If blood glucose less than 50 mg/dL and patient ALERT and NOT NPO, give 2 tubes glucose gel. If blood glucose less than 70 mg/dL and patient ALERT and NOT NPO, give 1 tube glucose gel. Repeat blood glucose in 15 minutes. If blood glucose is less than 70 mg/dL, repeat treatment and recheck blood glucose in 15 minutes x2 and notify provider. nitroglycerin (Nitrostat) SL tablet 0.4 mg 0.4 mg, SubLINGual, Every 5 min PRN, chest pain, Starting on [place] 11/02/24 at 0131, May administer up to 3 doses per episode. perflutren protein A microsphere (Optison) 3 mL in sodium chloride (PF) 0.9 % 10 mL IV 0-10 mL, IntraVENous, IMG once PRN, other, Suboptimal echo image, Starting on [place] 11/02/24 at 1306, For 1 dose, CV Procedural Medications, Administer via slow IVP for suboptimal echocardiogram enhancement. May administer as divided doses to reach optimal image enhancement polyethylene glycol (PEG) 3350 (Miralax) packet 17 g 17 g, Oral, Daily PRN, constipation, Starting on Sun11/02/24 at 0243, 1st line for treatment of constipation - give scheduled if no bowel movement in past 24 hours. Linked Groups Order Group 1: Insulin Lispro (Humalog) injection 0-18 UnitsJump to med 0-18 Units, SubCUTAneous, 3 times daily with meals, First dose on Sun11/02/24 at 0800, High Dose Correction Algorithm Glucose: Dose: LESS than 150 No Insulin 150-199 3 Units 200-249 6 Units 250-299 9 Units 300-349 12 Units 350-400 15 Units Above 400 18 Units And Insulin Lispro (Humalog) injection 0-18 UnitsJump to med 0-18 Units, SubCUTAneous, Nightly, First dose on 11/02/24 at 2100, If eating or bolus tube feeding: High Dose Correction Algorithm Glucose: Dose: LESS than 150 No Insulin 150-199 3 Units 200-249 6 Units 250-299 9 Units 300-349 12 Units 350-400 15 Units Above 400 18 Units Scheduled Medication Order 05/17/2025 05/18/2025 05/19/2025 apixaban (Eliquis) tablet 5 mg 5 mg, Oral, 2 times daily, First dose on Sun05/11/25 at 2245, Anticoagulant 0938 (Given - Provider: Maureen Garcia RN)211 (Given - Provider: Nichole Sharma RN) 0818 (Given - Provider: Kat Jiménez, VALENTÍN)2012 (Given - Provider: Nichole Sharma, VALENTÍN) 0833 (Given - Provider: Kat Jiménez, VALENTÍN) atorvastatin (Lipitor) tablet 40 mg 40 mg, Oral, Daily, First dose on Sun05/12/25 at 0900 0846 (Given - Provider: Maureen Garcia RN) 0818 (Given - Provider: Kat Jiménez, VALENTÍN) 0833 (Given - Provider: Kat Jiménez, VALENTÍN) brimonidine (AlphaGAN) 0.2 % ophthalmic solution 1 drop 1 drop, Both Eyes, 2 times daily, First dose on Sun05/11/25 at 2315, Substituted for brimonidine (Alphagan P) 0.1% or 0.15%. 0846 (Given - Provider: Maureen Garcia RN)2329 (Not Given - Provider: Nichole Sharma RN - Reason: Medication not available) 0828 (Given - Provider: Kat Jiménez, VALENTÍN)2012 (Given - Provider: Nichole Sharma RN) 0833 (Given - Provider: Kat Jiménez, VALENTÍN) chlorhexidine (Hibiclens) 4 % solution Topical, 2 times daily, First dose on Sun05/13/25 at 0900, Nursing staff to perform dressing change: Abdominal Fold/Groin: Fungal Dermatitis -Cleanse with Hibiclens soap and water. Apply miconazole powder. Leave GEREMIAS. Apply BID and PRN Bilateral medial thighs: Fungal Dermatitis -Cleanse with Hibiclens soap and water. Apply miconazole powder. Leave GEREMIAS. 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 Apply miconazole powder to wound bed, followed by ET mix. Leave GEREMIAS. Apply BID and PRN 0846 (Given - Provider: Maureen Garcia RN)2113 (Given - Provider: Nichole Sharma RN) 0818 (Given - Provider: Kat Jiménez, VALENTÍN)2012 (Given - Provider: Nichole Sharma RN) 0834 (Given - Provider: Kat Jiménez, VALENTÍN) cholecalciferol (Vitamin D-3) tablet 50 mcg 50 mcg, Oral, Daily, First dose on Sun05/12/25 at 0900 0846 (Given - Provider: Maureen Garcia RN) 0818 (Given - Provider: Kat Jiménez RN) 0833 (Given - Provider: Kat Jiménez, RN) citalopram (CeleXA) tablet 20 mg 20 mg, Oral, Daily, First dose on Sun05/12/25 at 0900 0845 (Given - Provider: Maureen Garcia RN) 0818 (Given - Provider: Kat Jiménez, VALENTÍN) 0833 (Given - Provider: Kat Jiménez, RN) insulin glargine (Lantus) injection 16 Units 16 Units, SubCUTAneous, Nightly, First dose on Sun05/11/25 at 2245 2114 (Given - Provider: Nichole Sharma RN) 2011 (Given - Provider: Nichole Sharma RN) Insulin Lispro (Humalog) injection 0-12 Units(Linked Group 1) 0-12 Units, SubCUTAneous, 3 times daily with meals, First dose on Sun05/12/25 at 0800, Medium Dose Correction Algorithm Glucose: Dose: LESS than 150 No Insulin 150-199 2 Units 200-249 4 Units 250-299 6 Units 300-349 8 Units 350-400 10 Units Above 400 12 Units 0845 (Not Given - Provider: Maureen Garcia RN - Reason: Order parameters not met)1352 (Given - Provider: Maureen Garcia RN)1717 (Given - Provider: Maureen Garcia RN) 0818 (Given - Provider: Kat Jiménez RN)1232 (Given - Provider: Kat Jiménez RN)1703 (Not Given - Provider: Reyes Golden RN - Reason: Order parameters not met) 0833 (Given - Provider: Kat Jiménez RN)1220 (Given - Provider: Kat Jiménez RN)1739 (Not Given - Provider: Kat Jiménez RN - Reason: Patient/family refused) Insulin Lispro (Humalog) injection 0-12 Units(Linked Group 1) 0-12 Units, SubCUTAneous, Nightly, First dose on Sun05/11/25 at 2245, If eating or bolus tube feeding: Medium Dose Correction Algorithm Glucose: Dose: LESS than 150 No Insulin 150-199 2 Units 200-249 4 Units 250-299 6 Units 300-349 8 Units 350-400 10 Units Above 400 12 Units 2114 (Given - Provider: Nichole Sharma, VALENTÍN) 2011 (Given - Provider: Nichole Sharma RN) Insulin Lispro (Humalog) injection 4 Units 4 Units, SubCUTAneous, 3 times daily with meals, First dose (after last modification) on Sun05/12/25 at 1200 0845 (Given - Provider: Maureen Garcia RN)1353 (Given - Provider: Maureen Garcia RN)1717 (Given - Provider: Maureen Garcia RN) 0818 (Given - Provider: Kat Jiménez RN)1232 (Given - Provider: Kat Jiménez RN)1708 (Given - Provider: Reyes Golden RN) 0834 (Given - Provider: Kat Jiménez RN)1220 (Given - Provider: Kat Jiménez RN)1739 (Not Given - Provider: Kat Jiménez RN - Reason: Patient/family refused) levothyroxine (Synthroid, Levoxyl) tablet 175 mcg 175 mcg, Oral, Daily before breakfast, First dose on Sun05/12/25 at 0600, Tube feeding (TF) interaction, obtain physician order to manage, recommend holding TF for 30 minutes before and after dose. 0550 (Given - Provider: Padmini Schwab RN) 0552 (Given - Provider: Nichole Sharma RN) 0559 (Given - Provider: Nichole Sharma RN) losartan (Cozaar) tablet 50 mg 50 mg, Oral, Daily, First dose on Sun05/14/25 at 1415 0846 (Given - Provider: Maureen Garcia RN) 0818 (Given - Provider: Kat Jiménez RN) 0833 (Given - Provider: Kat Jiménez RN) metoprolol tartrate (Lopressor) tablet 25 mg 25 mg, Oral, 2 times daily, First dose on Sun05/11/25 at 2245, Hold for HR<60 BPM 0846 (Given - Provider: Maureen Garcia RN)2114 (Given - Provider: Nichole Sharma RN) 0818 (Given - Provider: Kat Jiménez RN)2013 (Given - Provider: Nichole Sharma RN) 0833 (Given - Provider: Kat Jiménez, VALENTÍN) miconazole (Micotin) 2 % powder Topical, 2 times daily, First dose on Sun05/12/25 at 1230, Nursing staff to perform dressing change: Abdominal Fold/Groin: Fungal Dermatitis -Cleanse with Hibiclens soap and water. Apply miconazole powder. Leave JAVA DEVELOPMENT MANAGER. Apply BID and PRN Bilateral medial thighs: Fungal Dermatitis -Cleanse with Hibiclens soap and water. Apply miconazole powder. Leave JAVA DEVELOPMENT MANAGER. 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 Apply miconazole powder to wound bed, followed by ET mix. Leave GEREMIAS. Apply BID and PRN 0846 (Given - Provider: Maureen Garcia RN)2114 (Given - Provider: Nichole Sharma, VALENTÍN) 817 (Given - Provider: Kat Jiménez, RN)2012 (Given - Provider: Nichole Sharma RN) 0834 (Given - Provider: Kat Jiménez, RN) sodium chloride 0.9% (NS) flush 10 mL 10 mL, IntraVENous, Every 12 hours scheduled (2 times per day), First dose on Sun05/11/25 at 2255 0847 (Given - Provider: Maureen aGrcia RN)2112 (Given - Provider: Nichole Sharma RN) 817 (Given - Provider: Kat Jiménez, RN)2011 (Given - Provider: Nichole Sharma, VALENTÍN) 0839 (Given - Provider: Kat Jiménez, VALENTÍN) stomahesive in petrolatum (ET Mix) Topical, 2 times daily, First dose on Sun05/12/25 at 1230, Nursing staff to perform dressing change: Sacrum extending to bilateral buttocks: Unstageable pressure injury with MASD (bodily fluids)/fungal dermatitis -Cleanse with Hibiclens soap and water. Apply miconazole powder to wound bed, followed by ET mix. Leave GEREMIAS. Apply BID and PRN 0846 (Given - Provider: Maureen Garcia RN)2114 (Given - Provider: Nichole Sharma RN) 817 (Given - Provider: Kat Jiménez, RN)2012 (Given - Provider: Nichole Sharma, VALENTÍN) 0834 (Given - Provider: Kat Jiménez, RN) therapeutic multivitamin-minerals (Theragran-M) tablet 1 tablet, Oral, Daily, First dose on Sun05/12/25 at 0900 0846 (Given - Provider: Maureen Garcia RN) 0818 (Given - Provider: Kat Jiménez, VALENTÍN) 0833 (Given - Provider: Kat Jiménez, VALENTÍN) timolol (Timoptic) 0.5 % ophthalmic solution 1 drop 1 drop, Both Eyes, 2 times daily, First dose on Sun05/11/25 at 2315 0846 (Given - Provider: Maureen Garcia RN)2330 (Not Given - Provider: Nichole Sharma RN - Reason: Medication not available) 0828 (Given - Provider: Kat Jiménez RN)2012 (Given - Provider: Nichole Sharma RN) 0833 (Given - Provider: Kat Jiménez RN) PRN Medication Order 05/17/2025 05/18/2025 05/19/2025 acetaminophen (Tylenol) suppository 650 mg(Linked Group 2) 650 mg, Rectal, Every 6 hours PRN, fever, For temp greater than 100.4 F (38 C), Starting on Sun05/11/25 at 2246, Administer if oral route cannot be used. Maximum dose of acetaminophen is 4000 mg from all sources in 24 hours. 1401 (See Alternativ e - Provider: Kat Jiménez RN) acetaminophen (Tylenol) tablet 650 mg(Linked Group 2) 650 mg, Oral, Every 6 hours PRN, mild pain (1-3), fever, For temp greater than 100.4 F (38 C), Starting on Sun05/11/25 at 2246, Maximum dose of acetaminophen is 4000 mg from all sources in 24 hours. 1401 (Given - Provid er: Kat Jiménez RN) chlorhexidine (Hibiclens) 4 % solution Topical, As needed, wound care, Starting on Sun05/13/25 at 0000, Nursing staff to perform dressing change: Abdominal Fold/Groin: Fungal Dermatitis -Cleanse with Hibiclens soap and water. Apply miconazole powder. Leave JAVA DEVELOPMENT MANAGER. Apply BID and PRN Bilateral medial thighs: Fungal Dermatitis -Cleanse with Hibiclens soap and water. Apply miconazole powder. Leave JAVA DEVELOPMENT MANAGER. 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 Apply miconazole powder to wound bed, followed by ET mix. Leave JAVA DEVELOPMENT MANAGER. Apply BID and PRN dextrose 5 % infusion 100 mL/hr, IntraVENous, PRN, Blood sugar less than 70mg/dL, Starting on Sun05/11/25 at 2244, Start infusion following administration of dextrose 50% or glucagon. dextrose 50 % solution 12.5 g 12.5 g, IntraVENous, PRN, low blood sugar, Blood glucose less than 70 mg/dL and patient NOT ALERT or NPO., Starting on Sun05/11/25 at 2244, If patient does not respond within 5 minutes, repeat dose x1. Start D5W at 100 mL/hour until ordering provider can be reached. Repeat blood glucose in 15 minutes. If blood glucose is less than 70 mg/dL, repeat treatment and recheck blood glucose in 15 minutes x2. If using Glucostabilizer, dose as instructed per system. glucagon (human recombinant) injection 1 mg 1 mg, IntraMUSCular, PRN, low blood sugar, Blood glucose less than 70 mg/dL and patient NOT ALERT or NPO and does not have IV access., Starting on Sun05/11/25 at 2244, After administration, attempt intravenous access and start D5W at 100 mL/hr. Repeat blood glucose in 15 minutes x2 and notify provider. glucose oral gel 15 g 15 g, Oral, As needed, low blood sugar, Starting on Sun05/11/25 at 2243, If blood glucose less than 50 mg/dL and patient ALERT and NOT NPO, give 2 tubes glucose gel. If blood glucose less than 70 mg/dL and patient ALERT and NOT NPO, give 1 tube glucose gel. Repeat blood glucose in 15 minutes. If blood glucose is less than 70 mg/dL, repeat treatment and recheck blood glucose in 15 minutes x2 and notify provider. loperamide (Imodium) capsule 2 mg 2 mg, Oral, 4 times daily PRN, diarrhea, Starting on Sun05/13/25 at 0239, After each loose stool metoprolol tartrate (Lopressor) injection 5 mg 5 mg, IntraVENous, Every 5 min PRN, tachycardia, Starting on Sun05/13/25 at 1705, For 3 doses, For persiting HR >160 miconazole (Micotin) 2 % powder Topical, PRN, itching, Starting on Sun05/12/25 at 1132, Nursing staff to perform dressing change: Abdominal Fold/Groin: Fungal Dermatitis -Cleanse with Hibiclens soap and water. Apply miconazole powder. Leave JAVA DEVELOPMENT MANAGER. Apply BID and PRN Bilateral medial thighs: Fungal Dermatitis -Cleanse with Hibiclens soap and water. Apply miconazole powder. Leave GEREMIAS. 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 Apply miconazole powder to wound bed, followed by ET mix. Leave JAVA DEVELOPMENT MANAGER. Apply BID and PRN naloxone (Narcan) injection 0.4 mg 0.4 mg, IntraVENous, Every 5 min PRN, opioid reversal, respiratory depression, Starting on Sun05/11/25 at 2357, +++ For RR <10, pinpoint pupils, over sedation for opioid reversal - MUST notify contract mail carrier provider immediately after first dose, may give IM or SQ if no IV access +++ oxyCODONE (Roxicodone) immediate release tablet 2.5 mg(Linked Group 3) 2.5 mg, Oral, Every 4 hours PRN, moderate pain (4-6), Starting on Sun05/11/25 at 2248 oxyCODONE (Roxicodone) immediate release tablet 5 mg(Linked Group 3) 5 mg, Oral, Every 4 hours PRN, severe pain (7-10), Starting on Sun05/11/25 at 2248 polyethylene glycol (PEG) 3350 (Miralax) packet 17 g 17 g, Oral, Daily PRN, constipation, Starting on Sun05/11/25 at 2246, 1st line for treatment of constipation - give scheduled if no bowel movement in past 24 hours. prochlorperazine (Compazine) injection 10 mg(Linked Group 4) 10 mg, IntraVENous, Every 6 hours PRN, nausea, vomiting, Starting on Sun05/11/25 at 2248, 1st Line. Give IV if patient is unable to take orally. Give IM if patient is unable to take orally and does not have IV access. If inadequate response within 60 minutes, proceed to next-line agent or contact provider if no further options ordered. prochlorperazine (Compazine) suppository 25 mg(Linked Group 4) 25 mg, Rectal, Every 12 hours PRN, nausea, vomiting, Starting on Sun05/11/25 at 2248, 1st Line. Give OR if patient is unable to take orally or receive by injection. If inadequate response within 60 minutes, proceed to next-line agent or contact provider if no further options ordered. prochlorperazine (Compazine) tablet 10 mg(Linked Group 4) 10 mg, Oral, Every 6 hours PRN, nausea, vomiting, Starting on Sun05/11/25 at 2248, 1st Line. If inadequate response within 60 minutes, proceed to next-line agent or contact provider if no further options ordered. sodium chloride 0.9 % infusion 5-250 mL/hr, IntraVENous, PRN, if patient receiving piggyback infusions and maintenance fluids are not ordered OR KVO fluids to protect IV site / prevent frequent line interruptions/ long duration, Starting on Sun05/11/25 at 2246, For piggyback infusion, administer at same rate as piggyback for a total of 25 mL. Enter 25 mL into dose field and piggyback rate into rate field of order. If piggyback is infusing at a rate less than 100 mL/hr, enter 25 mL into dose field and 100 mL/hr into rate field of order. For KVO fluids, enter rate of 20 mL/hr or less into rate field of order. sodium chloride 0.9% (NS) flush 10 mL 10 mL, IntraVENous, PRN, line care, Starting on Sun05/11/25 at 2246, After every IV line use stomahesive in petrolatum (ET Mix) Topical, 3 times daily PRN, dry skin, Starting on Sun05/12/25 at 0224 Linked Groups Order Group 1: Insulin Lispro (Humalog) injection 0-12 UnitsJump to med 0-12 Units, SubCUTAneous, 3 times daily with meals, First dose on Sun05/12/25 at 0800, Medium Dose Correction Algorithm Glucose: Dose: LESS than 150 No Insulin 150-199 2 Units 200-249 4 Units 250-299 6 Units 300-349 8 Units 350-400 10 Units Above 400 12 Units And Insulin Lispro (Humalog) injection 0-12 UnitsJump to med 0-12 Units, SubCUTAneous, Nightly, First dose on Sun05/11/25 at 2245, If eating or bolus tube feeding: Medium Dose Correction Algorithm Glucose: Dose: LESS than 150 No Insulin 150-199 2 Units 200-249 4 Units 250-299 6 Units 300-349 8 Units 350- 400 10 Units Above 400 12 Units Group 2: acetaminophen (Tylenol) tablet 650 mgJump to med 650 mg, Oral, Every 6 hours PRN, mild pain (1-3), fever, For temp greater than 100.4 F (38 C), Starting on Sun05/11/25 at 2246, Maximum dose of acetaminophen is 4000 mg from all sources in 24 hours. Or acetaminophen (Tylenol) suppository 650 mgJump to med 650 mg, Rectal, Every 6 hours PRN, fever, For temp greater than 100.4 F (38 C), Starting on Sun05/11/25 at 2246, Administer if oral route cannot be used. Maximum dose of acetaminophen is 4000 mg from all sources in 24 hours. Group 3: oxyCODONE (Roxicodone) immediate release tablet 2.5 mgJump to med 2.5 mg, Oral, Every 4 hours PRN, moderate pain (4-6), Starting on Sun05/11/25 at 2248 Or oxyCODONE (Roxicodone) immediate release tablet 5 mgJump to med 5 mg, Oral, Every 4 hours PRN, severe pain (7-10), Starting on Sun05/11/25 at 2248 Group 4: prochlorperazine (Compazine) tablet 10 mgJump to med 10 mg, Oral, Every 6 hours PRN, nausea, vomiting, Starting on Sun05/11/25 at 2248, 1st Line. If inadequate response within 60 minutes, proceed to next-line agent or contact provider if no further options ordered. Or prochlorperazine (Compazine) injection 10 mgJump to med 10 mg, IntraVENous, Every 6 hours PRN, nausea, vomiting, Starting on Sun05/11/25 at 2248, 1st Line. Give IV if patient is unable to take orally. Give IM if patient is unable to take orally and does not have IV access. If inadequate response within 60 minutes, proceed to next-line agent or contact provider if no further options ordered. Or prochlorperazine (Compazine) suppository 25 mgJump to med 25 mg, Rectal, Every 12 hours PRN, nausea, vomiting, Starting on Sun05/11/25 at 2248, 1st Line. Give OR if patient is unable to take orally or receive by injection. If inadequate response within 60 minutes, proceed to next-line agent or contact provider if no further options ordered. FOR RECORDS PERTAINING TO PATIENTS WHO ARE OR HAVE BEEN ENROLLED IN A CHEMICAL DEPENDENCY/SUBSTANCEABUSE PROGRAM, SOME INFORMATION MAY BE OMITTED. This clinical summary was aggregated from multiple sources. Caution should be exercised in using it in the provision of clinical care. This summary normalizes information from multiple sources, and as a consequence, information in this document may materially change the coding, format and clinical context of patient data. In addition, data may be omitted in some cases. CLINICAL DECISIONS SHOULD BE BASED ON THE PRIMARY CLINICAL RECORDS. [facility] [facility]. provides no warranty or guarantee of the accuracy or completeness of information in this document.
[2025-07-13 07:57] LABS: INR Fingerstick 2.0
== END ==
LOC: OLS.SANC 05:00
PROVIDERS: Visit Provider Internal Medicine
DX: Z79.01 Long term (current) use of anticoagulants (principal)
CPT/HCPCS: 36416; 85610

== ENCOUNTER → 2025-07-15 04:00 | Outpatient (REF) | payer MEDICARE, OTHER, SELFPAY ==
--- OUTSIDE RECORDS SUMMARY | 2025-07-15 04:22 | XMS RPT_ITS | CCD ---
Author Organization [facility] CliniSymd Care Team Providers Care Control Operator Name Role Phone Christy Leach Primary Care Provider [phone] Christy Mendez Jr. Primary Care Provider Christy [...] Christy Leach MD Primary Care Provider Renuka CLINICAL PROGRAMMER - CRISIS COUNSELOR, Jaqueline Unavailable Christy Leach MD Primary Care Provider Renuka CLINICAL PROGRAMMER - CRISIS COUNSELOR, Jaqueline Unavailable [phone] Vanessa Carbajal MD, Christy Gill Primary Care Prov ider Renuka CLINICAL PROGRAMMER - CRISIS COUNSELOR, Jaqueline Unavailable Frandy CLINICAL PROGRAMMER - CRISIS COUNSELOR, Anjana Unavailable Enoc ANAYA, Cuauhtemoc Be Unavailable [phone] Vanessa Carbajal MD, Christy Gill Primary Care Prov ider KIT JACKSON Attending Unavailable MANUEL, KIT Referring Unavailable Irvin LEACH Primary Care Unavailable IKT JACKSON Attending Unavailable MANUEL, KIT Referring Unavailable [...] Care Unavailable CUAUHTEMOC MACHADO Attending Unavailable JENNIFER LEÓN Admitting Unavailable CHRISTY LEACH Primary Care Unavailable Case Rizzo MD, Christy Gill Primary Care Provider Renuka CLINICAL PROGRAMMER - CRISIS COUNSELOR, Jaqueline Unavailable [phone] Frandy CLINICAL PROGRAMMER - CRISIS COUNSELOR, Anjana Unavailable Cuauhtemoc Stubbs MD Unavailable Allergies Allergy Classification Reported Allergen(s) Allergy Type Date of Onset Reaction(s) Facility bimatoprost (2 sources) bimatoprost Drug Allergy 8 Other [facility] Doxycycline (20 sources) Doxycycline Drug Allergy 7 Rash, Hives [facility] Macrolides (antibiotic) (20 sources) Erythromycin Drug Allergy 5 Hives [facility] Mold Extract (20 sources) Mold Extract Drug Allergy 5 Itching [facility] Nitrofurantoin (20 sources) Nitrofurantoin Drug Allergy 5 Itching, Hives [facility] Penicillins (antibiotic) (20 sources) Penicillins Drug Allergy 5 Rash, Hives [facility] Quinolones (antibiotic) (20 sources) levoFLOXacin Drug Allergy 5 [facility] Doxycycline; Translations: [DOXYCYCLINE] Drug Allergy 7 Rash, Hives [place] (20 sources) Erythromycin; Translations: [ERYTHROMYCIN] Drug Allergy 3 Hives [place] (20 sources) levoFLOXacin Drug Allergy 5 Swelling [place] (20 sources) Mold Extract Drug Allergy 5 Itching [place] (20 sources) Nitrofurantoin; Translations: [NITROFURANTOIN MONOHYD MACRO] Drug Allergy 5 Itching [place] (20 sources) Penicillins; Translations: [PENICILLINS] Propensity to adverse reactions to drug 4 Rash [place] (20 sources) Quinolones (Antibiotic) Propensity to adverse reactions to drug 5 Swelling [place] (20 sources) Macrolides And Ketolides Propensity to adverse reactions to drug 5 [place] (20 sources) Other; Translations: [OTHER] Propensity to adverse reactions 3 Itching [place] (16 sources) bimatoprost; Translations: [BIMATOPROST] Drug Allergy 8 Intolerance [facility] Work Phone: (16 sources) Doxycycline; Translations: [DOXYCYCLINE HYCLATE] Drug Allergy 7 [facility], [facility], [facility] (20 sources) levoFLOXacin; Translations: [LEVOFLOXACIN] Drug Allergy 3 Other: See Comments, Angioedema, [facility] (20 sources) Macrolides (Antibiotic); Translations: [MACROLIDE ANTIBIOTICS] Drug Allergy 4 [facility] (16 sources) NITROFURANTOIN, MACROCRYSTALS / Nitrofurantoin, Monohydrate; Translations: [NITROFURANTOIN MONOHYD/M-CRYST] Drug Allergy 5 Itching [facility] (10 sources) Penicillins Propensity to adverse reactions 4 Rash [facility] Work Phone: (16 sources) Mold Spores; Translations: [MOLD SPORES] [facility] Macrolides Drug Allergy 4 [facility] (5 sources) Penicillins Propensity to adverse reactions 4 [facility] Work Phone: (20 sources) bimatoprost Drug Allergy 8 Other [facility] (20 sources) Nitrofurantoin Drug Allergy 2 [facility] (20 sources) Penicillins Propensity to adverse reactions to drug 2 [facility] Medications Current Medications Medication Drug Class(es) Dates [...] a Fluress shortage, administer 1 drop of [place]-Fluor into both eyes as directed for applanation [...] by Does not apply route 0 Active [id number] 0.3 ml EPINEPHrine 1 mg/ml auto-injector (15 [...] Active Comment on above: Take by mouth. [place] stones-not gummies Take 2 tablets by mo [...] Drug Class(es) Dates Sig (Normalized) Sig (Original) [id number] 200 actuat albuterol 0.09 mg/actuat metered dose [...] Discontinued (Therapy completed) take 1 tablet by cnidy th in the morning cholecalciferol (Vitamin D-3) [...] reach optimal image enhancement polyethylene glycol 3350 60502 mg powder for oral solution (4 sources) [...] on Sun05/11/25 at 2248, 1st Line. Give RI if patient is unable to take orally [...] 5 06-21-2018 Episodic Other aftercare (1 source) correction (current) use of insulin; Translations: [Type 2 [...] Results Test Name Value Interpretation Reference Range Rust [id number] 05-20-2025 [id number] Patient Choice Patient Name: DAMEON POTTER Date of : 1955 [facility] [id number] 05-19-[id number] [facility] [id number] [address] Patient/Family Choice [facility] [id number] [facility] [id number] [facility] [id number] Discharge med list [facility] per TCC request. [facility] BASIC METABOLIC PANELon - Anion gap [Moles/Vol] 7 mmol/L Normal - [facility] Comment on above: Performed By: #### L [id number] ####Environment Friendly Landscape Designer: NIEVES RUIZ ([id number])[facility] ([address] Calcium [Mass/Vol] 8.2 mg/dL Low 8.8-10.0 [facility] Comment on above: Performed By: #### L [id number] ####Environment Friendly Landscape Designer: NIEVES RUIZ ([phone])[facility])[address] [place] [address] Chloride [Moles/Vol] 107 mmol/L Normal 98-107 [facility] Comment on above: Performed By: #### L [id number] ####Environment Friendly Landscape Designer: NIEVES RUIZ ([phone])[facility] ([facility])[address] [place] [address] CO2 [Moles/Vol] 22 mmol/L Low 23-31 [facility] Comment on above: Performed By: #### L [id number] ####Environment Friendly Landscape Designer: NIEVES RUIZ ([id number])[facility])[address] [place] [address] Creatinine [Mass/Vol] 0.59 mg/dL Normal 0.58-1.12 [facility] Comment on above: Performed By: #### L [id number] ####Environment Friendly Landscape Designer: NIEVES RUIZ ([phone])[facility] ([facility])[address] [place] [address] GLOMERULAR FILTRATION RATE ML/MIN/1.73 SQ M.PREDICTED >90.0 Normal >60.0 [facility] Comment on above: Result Comment: Calc ulation based on the Chronic Kidney Disease Epidemiology Collaboration (CKD-EPI) equation refit without adjustment for race Performed By: #### L [id number] ####Environment Friendly Landscape Designer: NIEVES RUIZ ([phone])[facility] ([facility])[address] [place] [address] Glucose [Mass/Vol] 116 mg/dL High 82-115 [facility] Comment on above: Performed By: #### L [id number] ####Environment Friendly Landscape Designer: NIEVES RUIZ ([phone])[facility])[address] [place] [address] Potassium [Moles/Vol] 4.3 mmol/L Normal 3.5-5.1 [facility] Comment on above: Result Comment: [facility] potassium values may be up to 0.5 mmol/L lower than serum values. Performed By: #### L [id number] ####Environment Friendly Landscape Designer: NIEVES RUIZ ([phone])[facility])[address] [place] [address] Sodium [Moles/Vol] 136 mmol/L Normal 136-145 [facility] Comment on above: Performed By: #### L [id number] ####Environment Friendly Landscape Designer: NIEVES RUIZ ([phone])[facility] ([facility])[address] [place] [address] Urea nitrogen [Mass/Vol] 18 mg/dL Normal 9-23 [facility] Comment on above: Performed By: #### L [id number] ####Environment Friendly Landscape Designer: NIEVES RUIZ ([phone])[facility])[address] [place] [address] Basic metabolic 1998 panelon 05-19-2025 Anion gap [Moles/Vol] 7 mmol/L 3 - 13 mmol/L [facility] Calcium [Mass/Vol] 8.2 mg/dL Low 8.8 - 10. 0 mg/dL [facility] Chloride [Moles/Vol] 107 mmol/L 98 - 10 7 mmol/L [facility] CO2 [Moles/Vol] 22 mmol/L Low 23 - 31 mmol/L [facility] Creatinine [Mass/Vol] 0.59 mg/dL 0.58 - 1.12 mg/dL [facility] GFR/1.73 sq M.predicted (S/P/Bld) [Vol rate/Area] - PINF [facility] Glucose [Mass/Vol] 116 mg/dL High 82 - 115 mg/dL [facility] Interpretation and review of laboratory results Abnormal [facility] Potassium [Moles/Vol] 4.3 mmol/L 3.5 - 5.1 mmol/L [facility] Sodium [Moles/Vol] 136 mmol/L 136 - 145 mmol/L [facility] Urea nitrogen [Mass/Vol] 18 mg/dL 9 - 23 mg/dL [facility] CBC W Auto Differential pane l (Bld)on 05-19-2025 Basophils (Bld) [#/Vol] 0.1 10*3/uL 0.0 - 0.2 10*3/uL [facility] Basophils/100 WBC (Bld) 0.9 % 0.0 - 2.0 % [facility] Eosinophils (Bld) [#/Vol] 0.2 10*3/uL 0. 0 - 0.5 10*3/uL [facility] Eosinophils/100 WBC (Bld) 2.1 % 0.0 - 6.0 % [facility] Erythrocyte distribution width (RBC) [Ratio] 13.3 % 11.5 - 15.0 % [facility] Hematocrit (Bld) [Volume fraction] 31.3 % Low 35.0 - 47.0 % [facility] Hemoglobin (Bld) [Mass/Vol] 10 g/dL Low 11.7 - 16.0 g/dL [facility] Immature granulocytes (Bld) [#/Vol] 0.1 10*3/uL High NINF - 0.1 10*3/uL [facility] Immature granulocytes/100 WBC (Bld) 1.6 % 0.0 - 2.0 % [facility] Interpretation and review of laboratory results Abnormal [facility] th Lymphocytes (Bld) [#/Vol] 0.8 10*3/uL Low 1. 0 - 4.3 10*3/uL [facility] Lymphocytes/100 WBC (Bld) 10.8 % Low 15 .0 - 45.0 % [facility] MCH (RBC) [Entitic mass] 29.7 pg 26. 0 - 34.0 pg [facility] MCHC (RBC) [Mass/Vol] 31.9 % 30.5 - 36.0 % [facility] MCV (RBC) [Entitic vol] 92.9 fL 77.0 - 99.0 fL [facility] Monocytes (Bld) [#/Vol] 0.7 10*3/uL 0.0 - 0.9 10*3/uL [facility] Monocytes/100 WBC (Bld) 8.6 % 5.0 - 13.0 % [facility] Neutrophils (Bld) [#/Vol] 5.8 10*3/uL 1. 8 - 7.5 10*3/uL [facility] Neutrophils/100 WBC (Bld) 76 % 38 .0 - 82.0 % [facility] Nucleated RBC/100 WBC (Bld) [Ratio] 0 % [facility] Platelet mean volume (Bld) [Entitic vol] 11.3 fL 9.0 - 12.7 fL [facility] Platelets (Bld) [#/Vol] 291 10*3/uL 140 - 440 10*3/uL [facility] RBC (Bld) [#/Vol] 3.37 10*6/uL Low 3.80 - 5.2 0 10*6/uL [facility] WBC (Bld) [#/Vol] 7.6 10*3/uL 3.6 - 10.7 10*3/uL [facility] CBC WITH AUTO DIFFERENTIALon 05-19-2025 Basophils (Bld) [#/Vol] 0.1 10*3/uL Normal 0.0-0.[address] [facility] Comment on above: Performed By: #### L [id number] ####Environment Friendly Landscape Designer: NIEVES RUIZ ([phone])[facility] ([facility])[address] [place] [address] Basophils/100 WBC (Bld) 0.9 % Normal 0.0-2.0 [facility] Comment on above: Performed By: #### L [id number] ####Environment Friendly Landscape Designer: NIEVES RUIZ ([id number])[facility] ([facility])[address] [place] [address] Eosinophils (Bld) [#/Vol] 0.2 10*3/uL Normal 0.0-0.[address] [facility] Comment on above: Performed By: #### L [id number] ####Environment Friendly Landscape Designer: NIEVES RUIZ ([id number])[facility] ([facility])[address] [place] [address] Eosinophils/100 WBC (Bld) 2.1 % Normal 0.0-6.[address] [facility] Comment on above: Performed By: #### L [id number] ####Environment Friendly Landscape Designer: NIEVES RUIZ ([phone])[facility])[address] [place] [address] Erythrocyte distribution width (RBC) [Ratio] 13.3 % Normal 11.5-15.[address] [facility] Comment on above: Performed By: #### L [id number] ####Environment Friendly Landscape Designer: NIEVES RUIZ ([phone])[facility])[address] [place] [address] Hematocrit (Bld) [Volume fraction] 31.3 % Low 35.0-47.[address] [facility] Comment on above: Performed By: #### L [id number] ####Environment Friendly Landscape Designer: NIEVES RUIZ ([id number])[facility])[address] [place] [address] Hemoglobin (Bld) [Mass/Vol] 10.0 g/dL Low 11.7-16.[address] [facility] Comment on above: Performed By: #### L [id number] ####Environment Friendly Landscape Designer: NIEVES RUIZ ([phone])[facility])[address] [place] [address] IMMATURE GRANS % 1.6 % Normal 0.0-2.0 [facility] Comment on above: Performed By: #### L [id number] ####Environment Friendly Landscape Designer: NIEVES RUIZ ([id number])[facility])[address] [place] [address] IMMATURE GRANS ABSOLUTE 0.1 10*3/uL High <0.[address] [facility] Comment on above: Performed By: #### L [id number] ####Environment Friendly Landscape Designer: NIEVES RUIZ ([id number])[facility])[address] [place] [address] Lymphocytes (Bld) [#/Vol] 0.8 10*3/uL Low 1.0-4.[address] [facility] Comment on above: Performed By: #### L [id number] ####Environment Friendly Landscape Designer: NIEVES RUIZ ([phone])[facility])[address] [place] [address] [place] Lymphocytes/100 WBC (Bld) 10.8 % Low 15.0-45.[address] [facility] Comment on above: Performed By: #### L [id number] ####Environment Friendly Landscape Designer: NIEVES RUIZ ([id number])[facility])[address] [place] [address] MCH (RBC) [Entitic mass] 29.7 pg Normal 26.0-34.[address] [facility] Comment on above: Performed By: #### L [id number] ####Environment Friendly Landscape Designer: NIEVES RUIZ ([id number])[facility])[address] [place] [address] MCHC 31.9 % Normal 30.5-36.[address] [facility] Comment on above: Performed By: #### L [id number] ####Environment Friendly Landscape Designer: NIEVES RUIZ ([id number])[facility] ([facility])[address] [place] [address] MCV (RBC) [Entitic vol] 92.9 fL Normal 77.0-99.0 [facility] Comment on above: Performed By: #### L [id number] ####Environment Friendly Landscape Designer: NIEVES RUIZ ([id number])[facility] ([facility])[address] [place] [address] Monocytes (Bld) [#/Vol] 0.7 10*3/uL Normal 0.0-0.[address] [facility] Comment on above: Performed By: #### L [id number] ####Environment Friendly Landscape Designer: NIEVES RUIZ ([phone])[facility])[address] [place] [address] Monocytes/100 WBC (Bld) 8.6 % Normal 5.0-13.0 [facility] Comment on above: Performed By: #### L [id number] ####Environment Friendly Landscape Designer: NIEVES RUIZ ([phone])[facility])[address] [place] [address] NEUTROPHILS ABSOLUTE 5.8 10*3/uL Normal 1.8-7.5 [facility] Comment on above: Performed By: #### L [id number] ####Environment Friendly Landscape Designer: NIEVES RUIZ ([id number])[facility])[address] [place] [address] Neutrophils/100 WBC (Bld) 76.0 % Normal 38.0-82.[address] [facility] Comment on above: Performed By: #### L [id number] ####Environment Friendly Landscape Designer: NIEVES RUIZ ([id number])[facility] ([facility])[address] [place] [address] NRBC 0.0 /100 WBCs Normal 0.0-2.0 [facility] Comment on above: Performed By: #### L [id number] ####Environment Friendly Landscape Designer: NIEVES RUIZ ([id number])[facility] ([facility])[address] [place] [address] Platelet mean volume (Bld) [Entitic vol] 11.3 fL Normal 9.0-12.[address] [facility] Comment on above: Performed By: #### L [id number] ####Environment Friendly Landscape Designer: NIEVES RUIZ ([phone])[facility] ([facility])[address] [place] [address] Platelets (Bld) [#/Vol] 291 10*3/uL Normal 140-[address] [facility] Comment on above: Performed By: #### L [id number] ####Environment Friendly Landscape Designer: NIEVES RUIZ ([id number])[facility] ([facility])[address] [place] [address] RBC (Bld) [#/Vol] 3.37 10*6/uL Low 3.80-5.[address] [facility] Comment on above: Performed By: #### L [id number] ####Environment Friendly Landscape Designer: NIEVES RUIZ ([id number])[facility] ([facility])[address] [place] [address] WBC (Bld) [#/Vol] 7.6 10*3/uL Normal 3.6-10.[address] [facility] Comment on above: Performed By: #### L [id number] ####Environment Friendly Landscape Designer: NIEVES RUIZ ([phone])[facility])[address] [place] [address] Laboratory - Chemistry and C hemistry - challengeon 05-19-2025 Glucose [Mass/Vol] 256 mg/dL High 70 - 100 mg/dL [facility] Glucose [Mass/Vol] 152 mg/dL High 70 - 100 mg/dL [facility] Glucose [Mass/Vol] 151 mg/dL High 70 - 100 mg/dL [facility] No Panel Informationon 05-19 Interpretation and review of laboratory results Abnormal [facility] Interpretation and review of laboratory results Abnormal [facility] Interpretation and review of laboratory results Abnormal [facility] Nursing Noteon 05-19-2025 Nursing Note Normal [facility] Progress Noteon 05-19-2025 Progress Note Physician Response Please review the following and provide your response below. Please clarify which of the following accurately describes the patient's condition: Sepsis 2/2 UTI This documentation will become part of the patient's medical record. Normal [facility] Progress Note Normal [facility] Progress Note Normal [facility] Progress Note Normal [facility] [id number] 05-18-2025 [id number] Normal [facility] [id number] Normal [facility] BASIC METABOLIC PANELon 04-23 Anion gap [Moles/Vol] 6 mmol/L Normal 3-13 [facility] Comment on above: Performed By: #### L [id number] ####Environment Friendly Landscape Designer: NIEVES RUIZ ([id number])[facility])[address] [place] [address] Calcium [Mass/Vol] 8.3 mg/dL Low 8.8-10.0 [facility] Comment on above: Performed By: #### L [id number] ####Environment Friendly Landscape Designer: NIEVES RUIZ ([phone])[facility] ([facility])[address] [place] [address] [place] Chloride [Moles/Vol] 108 mmol/L High 98-107 [facility] Comment on above: Performed By: #### L [id number] ####Environment Friendly Landscape Designer: NIEVES RUIZ ([id number])[facility] ([facility])[address] [place] [address] [place] CO2 [Moles/Vol] 21 mmol/L Low 23-31 [facility] Comment on above: Performed By: #### L [id number] ####Environment Friendly Landscape Designer: NIEVES RUIZ ([id number])[facility] ([facility])[address] [place] [address] Creatinine [Mass/Vol] 0.65 mg/dL Normal 0.58-1.12 [facility] Comment on above: Performed By: #### L [id number] ####Environment Friendly Landscape Designer: NIEVES RUIZ ([phone])[facility])[address] [place] [address] GLOMERULAR FILTRATION RATE ML/MIN/1.73 SQ M.PREDICTED >90.0 Normal >60.0 [facility] Comment on above: Result Comment: Calc ulation based on the Chronic Kidney Disease Epidemiology Collaboration (CKD-EPI) equation refit without adjustment for race Performed By: #### L [id number] ####Environment Friendly Landscape Designer: NIEVES RUIZ ([phone])[facility] ([facility])[address] [place] [address] [place] Glucose [Mass/Vol] 136 mg/dL High 82-115 [facility] Comment on above: Performed By: #### L [id number] ####Environment Friendly Landscape Designer: NIEVES RUIZ ([id number])[facility])[address] [place] [address] Potassium [Moles/Vol] 4.3 mmol/L Normal 3.5-5.1 [facility] Comment on above: Result Comment: [facility] potassium values may be up to 0.5 mmol/L lower than serum values. Performed By: #### L [id number] ####Environment Friendly Landscape Designer: NIEVES RUIZ ([id number])[facility] [place] [address] [place] Sodium [Moles/Vol] 135 mmol/L Low 136-145 [facility] Comment on above: Performed By: #### L [id number] ####Environment Friendly Landscape Designer: NIEVES RUIZ ([id number])[facility] ([facility])[address] [place] [address] Urea nitrogen [Mass/Vol] 20 mg/dL Normal 9-23 [facility] Comment on above: Performed By: #### L [id number] ####Environment Friendly Landscape Designer: NIEVES RUIZ ([id number])[facility] ([address] Basic metabolic 1998 panelon 05-18-2025 Anion gap [Moles/Vol] 6 mmol/L 3 - 13 mmol/L [facility] Calcium [Mass/Vol] 8.3 mg/dL Low 8.8 - 10. 0 mg/dL [facility] Chloride [Moles/Vol] 108 mmol/L High 98 - 10 7 mmol/L [facility] CO2 [Moles/Vol] 21 mmol/L Low 23 - 31 mmol/L [facility] Creatinine [Mass/Vol] 0.65 mg/dL 0.58 - 1.12 mg/dL [facility] GFR/1.73 sq M.predicted (S/P/Bld) [Vol rate/Area] - PINF [facility] Glucose [Mass/Vol] 136 mg/dL High 82 - 115 mg/dL [facility] Interpretation and review of laboratory results Abnormal [facility] Potassium [Moles/Vol] 4.3 mmol/L 3.5 - 5.1 mmol/L [facility] Sodium [Moles/Vol] 135 mmol/L Low 136 - 145 mmol/L [facility] Urea nitrogen [Mass/Vol] 20 mg/dL 9 - 23 mg/dL [facility] CBC W Auto Differential pane l (Bld)on 05-18-2025 Basophils (Bld) [#/Vol] 0.1 10*3/uL 0.0 - 0.2 10*3/uL [facility] Basophils/100 WBC (Bld) 0.8 % 0.0 - 2.0 % [facility] Eosinophils (Bld) [#/Vol] 0.2 10*3/uL 0. 0 - 0.5 10*3/uL [facility] Eosinophils/100 WBC (Bld) 2.1 % 0.0 - 6.0 % [facility] Erythrocyte distribution width (RBC) [Ratio] 13.3 % 11.5 - 15.0 % [facility] Hematocrit (Bld) [Volume fraction] 32.8 % Low 35.0 - 47.0 % [facility] Hemoglobin (Bld) [Mass/Vol] 10.4 g/dL Low 11.7 - 16.0 g/dL [facility] Immature granulocytes (Bld) [#/Vol] 0.1 10*3/uL High NINF - 0.1 10*3/uL [facility] Immature granulocytes/100 WBC (Bld) 1.5 % 0.0 - 2.0 % [facility] Interpretation and review of laboratory results Abnormal [facility] th Lymphocytes (Bld) [#/Vol] 0.7 10*3/uL Low 1. 0 - 4.3 10*3/uL [facility] Lymphocytes/100 WBC (Bld) 8.6 % Low 15 .0 - 45.0 % [facility] MCH (RBC) [Entitic mass] 29.6 pg 26. 0 - 34.0 pg [facility] MCHC (RBC) [Mass/Vol] 31.7 % 30.5 - 36.0 % [facility] MCV (RBC) [Entitic vol] 93.4 fL 77.0 - 99.0 fL [facility] Monocytes (Bld) [#/Vol] 0.5 10*3/uL 0.0 - 0.9 10*3/uL [facility] Monocytes/100 WBC (Bld) 6.9 % 5.0 - 13.0 % [facility] Neutrophils (Bld) [#/Vol] 6.2 10*3/uL 1. 8 - 7.5 10*3/uL [facility] Neutrophils/100 WBC (Bld) 80.1 % 38 .0 - 82.0 % [facility] Nucleated RBC/100 WBC (Bld) [Ratio] 0 % [facility] Platelet mean volume (Bld) [Entitic vol] 11.5 fL 9.0 - 12.7 fL [facility] Platelets (Bld) [#/Vol] 282 10*3/uL 140 - 440 10*3/uL [facility] RBC (Bld) [#/Vol] 3.51 10*6/uL Low 3.80 - 5.2 0 10*6/uL [facility] WBC (Bld) [#/Vol] 7.8 10*3/uL 3.6 - 10.7 10*3/uL [facility] CBC WITH AUTO DIFFERENTIALon 05-18-2025 Basophils (Bld) [#/Vol] 0.1 10*3/uL Normal 0.0-0.[address] [facility] Comment on above: Performed By: #### L [id number] ####Environment Friendly Landscape Designer: NIEVES RUIZ ([phone])[facility])[address] [place] [address] Basophils/100 WBC (Bld) 0.8 % Normal 0.0-2.0 [facility] Comment on above: Performed By: #### L [id number] ####Environment Friendly Landscape Designer: NIEVES RUIZ ([phone])[facility])[address] [place] [address] Eosinophils (Bld) [#/Vol] 0.2 10*3/uL Normal 0.0-0.[address] [facility] Comment on above: Performed By: #### L [id number] ####Environment Friendly Landscape Designer: NIEVES RUIZ ([phone])[facility])[address] [place] [address] Eosinophils/100 WBC (Bld) 2.1 % Normal 0.0-6.0 [facility] Comment on above: Performed By: #### L [id number] ####Environment Friendly Landscape Designer: NIEVES RUIZ ([phone])[facility])[address] [place] [address] Erythrocyte distribution width (RBC) [Ratio] 13.3 % Normal 11.5-15.0 [facility] Comment on above: Performed By: #### L [id number] ####Environment Friendly Landscape Designer: NIEVES RUIZ ([phone])[facility])[address] [place] [address] Hematocrit (Bld) [Volume fraction] 32.8 % Low 35.0-47.[address] [facility] Comment on above: Performed By: #### L [id number] ####Environment Friendly Landscape Designer: NIEVES RUIZ ([phone])[facility])[address] [place] [address] Hemoglobin (Bld) [Mass/Vol] 10.4 g/dL Low 11.7-16.[address] [facility] Comment on above: Performed By: #### L [id number] ####Environment Friendly Landscape Designer: NIEVES RUIZ ([phone])[facility] ([facility])[address] [place] [address] IMMATURE GRANS % 1.5 % Normal 0.0-2.0 [facility] Comment on above: Performed By: #### L [id number] ####Environment Friendly Landscape Designer: NIEVES RUIZ ([phone])[facility])[address] [place] [address] IMMATURE GRANS ABSOLUTE 0.1 10*3/uL High <0.[address] [facility] Comment on above: Performed By: #### L [id number] ####Environment Friendly Landscape Designer: NIEVES RUIZ ([phone])[facility])[address] [place] [address] Lymphocytes (Bld) [#/Vol] 0.7 10*3/uL Low 1.0-4.[address] [facility] Comment on above: Performed By: #### L [id number] ####Environment Friendly Landscape Designer: NIEVES RUIZ ([phone])[facility])[address] [place] [address] Lymphocytes/100 WBC (Bld) 8.6 % Low 15.0-45.[address] [facility] Comment on above: Performed By: #### L [id number] ####Environment Friendly Landscape Designer: NIEVES RUIZ ([phone])[facility])[address] [place] [address] MCH (RBC) [Entitic mass] 29.6 pg Normal 26.0-34.[address] [facility] Comment on above: Performed By: #### L [id number] ####Environment Friendly Landscape Designer: NIEVES RUIZ ([phone])[facility])[address] [place] [address] MCHC 31.7 % Normal 30.5-36.[address] [facility] Comment on above: Performed By: #### L [id number] ####Environment Friendly Landscape Designer: NIEVES RUIZ ([phone])[facility])[address] [place] [address] MCV (RBC) [Entitic vol] 93.4 fL Normal 77.0-99.0 [facility] Comment on above: Performed By: #### L [id number] ####Environment Friendly Landscape Designer: NIEVES RUIZ ([phone])[facility] ([facility])[address] [place] [address] Monocytes (Bld) [#/Vol] 0.5 10*3/uL Normal 0.0-0.9 [facility] Comment on above: Performed By: #### L [id number] ####Environment Friendly Landscape Designer: NIEVES RUIZ ([phone])[facility] ([facility])[address] [place] [address] Monocytes/100 WBC (Bld) 6.9 % Normal 5.0-13.0 [facility] Comment on above: Performed By: #### L [id number] ####Environment Friendly Landscape Designer: NIEVES RUIZ ([phone])[facility] ([facility])[address] [place] [address] NEUTROPHILS ABSOLUTE 6.2 10*3/uL Normal 1.8-7.5 [facility] Comment on above: Performed By: #### L [id number] ####Environment Friendly Landscape Designer: NIEVES RUIZ ([phone])[facility] ([facility])[address] [place] [address] Neutrophils/100 WBC (Bld) 80.1 % Normal 38.0-82.0 [facility] Comment on above: Performed By: #### L [id number] ####Environment Friendly Landscape Designer: NIEVES RUIZ ([phone])[facility] ([facility])[address] [place] [address] NRBC 0.0 /100 WBCs Normal 0.0-2.0 [facility] Comment on above: Performed By: #### L [id number] ####Environment Friendly Landscape Designer: NIEVES RUIZ ([phone])[facility] ([facility])[address] [place] [address] Platelet mean volume (Bld) [Entitic vol] 11.5 fL Normal 9.0-12.7 [facility] Comment on above: Performed By: #### L [id number] ####Environment Friendly Landscape Designer: NIEVES RUIZ ([phone])[facility] ([facility])[address] [place] [address] Platelets (Bld) [#/Vol] 282 10*3/uL Normal 140-440 [facility] Comment on above: Performed By: #### L [id number] ####Environment Friendly Landscape Designer: NIEVES RUIZ ([phone])[facility])[address] [place] [address] RBC (Bld) [#/Vol] 3.51 10*6/uL Low 3.80-5.20 [facility] Comment on above: Performed By: #### L [id number] ####Environment Friendly Landscape Designer: NIEVES RUIZ ([phone])[facility] ([facility])[address] [place] [address] WBC (Bld) [#/Vol] 7.8 10*3/uL Normal 3.6-10.7 [facility] Comment on above: Performed By: #### L [id number] ####Environment Friendly Landscape Designer: NIEVES RUIZ ([phone])[facility] ([facility])[address] [place] [address] Laboratory - Chemistry and C hemistry - challengeon 05-18-2025 Glucose [Mass/Vol] 213 mg/dL High 70 - 100 mg/dL [facility] Glucose [Mass/Vol] 122 mg/dL High 70 - 100 mg/dL [facility] Glucose [Mass/Vol] 155 mg/dL High 70 - 100 mg/dL [facility] Glucose [Mass/Vol] 157 mg/dL High 70 - 100 mg/dL [facility] No Panel Informationon 05-18 Interpretation and review of laboratory results Abnormal [facility] Interpretation and review of laboratory results Abnormal [facility] Interpretation and review of laboratory results Abnormal [facility] Interpretation and review of laboratory results Abnormal [facility] Progress Noteon 05-18-2025 Progress Note Normal [facility] BASIC METABOLIC PANELon 10-2 Anion gap [Moles/Vol] 6 mmol/L Normal 3-13 [facility] Comment on above: Performed By: #### L [id number] ####Environment Friendly Landscape Designer: NIEVES RUIZ ([phone])[facility])[address] [place] [address] Calcium [Mass/Vol] 7.9 mg/dL Low 8.8-10.0 [facility] Comment on above: Performed By: #### L [id number] ####Environment Friendly Landscape Designer: NIEVES RUIZ ([phone])[facility])[address] [place] [address] Chloride [Moles/Vol] 109 mmol/L High 98-107 [facility] Comment on above: Performed By: #### L [id number] ####Environment Friendly Landscape Designer: NIEVES RUIZ ([phone])[facility])[address] [place] [address] CO2 [Moles/Vol] 20 mmol/L Low 23-31 [facility] Comment on above: Performed By: #### L [id number] ####Environment Friendly Landscape Designer: NIEVES RUIZ ([phone])[facility] ([facility])[address] [place] [address] Creatinine [Mass/Vol] 0.64 mg/dL Normal 0.58-1.12 [facility] Comment on above: Performed By: #### L [id number] ####Environment Friendly Landscape Designer: NIEVES RUIZ ([phone])[facility] ([facility])[address] [place] [address] GLOMERULAR FILTRATION RATE ML/MIN/1.73 SQ M.PREDICTED >90.0 Normal >60.0 [facility] Comment on above: Result Comment: Calc ulation based on the Chronic Kidney Disease Epidemiology Collaboration (CKD-EPI) equation refit without adjustment for race Performed By: #### L [id number] ####Environment Friendly Landscape Designer: NIEVES RUIZ ([phone])[facility] [place] [address] [place] Glucose [Mass/Vol] 127 mg/dL High 82-115 [facility] Comment on above: Performed By: #### L [id number] ####Environment Friendly Landscape Designer: NIEVES RUIZ ([phone])[facility])[address] [place] [address] Potassium [Moles/Vol] 4.3 mmol/L Normal 3.5-5.1 [facility] Comment on above: Result Comment: [facility] potassium values may be up to 0.5 mmol/L lower than serum values. Performed By: #### L [id number] ####Environment Friendly Landscape Designer: NIEVES RUIZ ([phone])[facility] ([facility])[address] [place] [address] Sodium [Moles/Vol] 135 mmol/L Low 136-145 [facility] Comment on above: Performed By: #### L [id number] ####Environment Friendly Landscape Designer: NIEVES RUIZ ([phone])[facility] ([facility])[address] [place] [address] Urea nitrogen [Mass/Vol] 21 mg/dL Normal 9-23 [facility] Comment on above: Performed By: #### L [id number] ####Environment Friendly Landscape Designer: NIEVES RUIZ ([phone])[facility])[address] [place] [address] Basic metabolic 1998 panelon 05-17-2025 Anion gap [Moles/Vol] 6 mmol/L 3 - 13 mmol/L [facility] Calcium [Mass/Vol] 7.9 mg/dL Low 8.8 - 10. 0 mg/dL [facility] Chloride [Moles/Vol] 109 mmol/L High 98 - 10 7 mmol/L [facility] CO2 [Moles/Vol] 20 mmol/L Low 23 - 31 mmol/L [facility] Creatinine [Mass/Vol] 0.64 mg/dL 0.58 - 1.12 mg/dL [facility] GFR/1.73 sq M.predicted (S/P/Bld) [Vol rate/Area] - PINF [facility] Glucose [Mass/Vol] 127 mg/dL High 82 - 115 mg/dL [facility] Interpretation and review of laboratory results Abnormal [facility] Potassium [Moles/Vol] 4.3 mmol/L 3.5 - 5.1 mmol/L [facility] Sodium [Moles/Vol] 135 mmol/L Low 136 - 145 mmol/L [facility] Urea nitrogen [Mass/Vol] 21 mg/dL 9 - 23 mg/dL [facility] CBC W Auto Differential pane l (Bld)on 05-17-2025 Basophils (Bld) [#/Vol] 0 10*3/uL 0.0 - 0.2 10*3/uL [facility] Basophils/100 WBC (Bld) 0.5 % 0.0 - 2.0 % [facility] Eosinophils (Bld) [#/Vol] 0.2 10*3/uL 0. 0 - 0.5 10*3/uL [facility] Eosinophils/100 WBC (Bld) 2.2 % 0.0 - 6.0 % [facility] Erythrocyte distribution width (RBC) [Ratio] 13.3 % 11.5 - 15.0 % [facility] Hematocrit (Bld) [Volume fraction] 31.7 % Low 35.0 - 47.0 % [facility] Hemoglobin (Bld) [Mass/Vol] 10.3 g/dL Low 11.7 - 16.0 g/dL [facility] Immature granulocytes (Bld) [#/Vol] 0.1 10*3/uL High NINF - 0.1 10*3/uL [facility] Immature granulocytes/100 WBC (Bld) 1.2 % 0.0 - 2.0 % [facility] Interpretation and review of laboratory results Abnormal [facility] th Lymphocytes (Bld) [#/Vol] 0.9 10*3/uL Low 1. 0 - 4.3 10*3/uL [facility] Lymphocytes/100 WBC (Bld) 10.9 % Low 15 .0 - 45.0 % [facility] MCH (RBC) [Entitic mass] 30 pg 26. 0 - 34.0 pg [facility] MCHC (RBC) [Mass/Vol] 32.5 % 30.5 - 36.0 % [facility] MCV (RBC) [Entitic vol] 92.4 fL 77.0 - 99.0 fL [facility] Monocytes (Bld) [#/Vol] 0.7 10*3/uL 0.0 - 0.9 10*3/uL [facility] Monocytes/100 WBC (Bld) 8.1 % 5.0 - 13.0 % [facility] Neutrophils (Bld) [#/Vol] 6.4 10*3/uL 1. 8 - 7.5 10*3/uL [facility] Neutrophils/100 WBC (Bld) 77.1 % 38 .0 - 82.0 % [facility] Nucleated RBC/100 WBC (Bld) [Ratio] 0 % [facility] Platelet mean volume (Bld) [Entitic vol] 11.1 fL 9.0 - 12.7 fL [facility] Platelets (Bld) [#/Vol] 293 10*3/uL 140 - 440 10*3/uL [facility] RBC (Bld) [#/Vol] 3.43 10*6/uL Low 3.80 - 5.2 0 10*6/uL [facility] WBC (Bld) [#/Vol] 8.3 10*3/uL 3.6 - 10.7 10*3/uL [facility] CBC WITH AUTO DIFFERENTIALon 05-17-2025 Basophils (Bld) [#/Vol] 0.0 10*3/uL Normal 0.0-0.[address] [facility] Comment on above: Performed By: #### L [id number] ####Environment Friendly Landscape Designer: NEIVES RUIZ ([phone])[facility])[address] [place] [address] Basophils/100 WBC (Bld) 0.5 % Normal 0.0-2.0 [facility] Comment on above: Performed By: #### L [id number] ####Environment Friendly Landscape Designer: NIEVES RUIZ ([phone])[facility] ([facility])[address] [place] [address] [place] Eosinophils (Bld) [#/Vol] 0.2 10*3/uL Normal 0.0-0.[address] [facility] Comment on above: Performed By: #### L [id number] ####Environment Friendly Landscape Designer: NIEVES RUIZ ([phone])[facility])[address] [place] [address] [place] Eosinophils/100 WBC (Bld) 2.2 % Normal 0.0-6.[address] [facility] Comment on above: Performed By: #### L [id number] ####Environment Friendly Landscape Designer: NIEVES RUIZ ([phone])[address] Erythrocyte distribution width (RBC) [Ratio] 13.3 % Normal 11.5-15.[address] [facility] Comment on above: Performed By: #### L [id number] ####Environment Friendly Landscape Designer: NIEVES RUIZ ([phone])[address] Hematocrit (Bld) [Volume fraction] 31.7 % Low 35.0-47.[address] [facility] Comment on above: Performed By: #### L [id number] ####Environment Friendly Landscape Designer: NIEVES RUIZ ([phone])[address] Hemoglobin (Bld) [Mass/Vol] 10.3 g/dL Low 11.7-16.[address] [facility] Comment on above: Performed By: #### L [id number] ####Environment Friendly Landscape Designer: NIEVES RUIZ ([phone])[address] IMMATURE GRANS % 1.2 % Normal 0.0-2.0 [facility] Comment on above: Performed By: #### L [id number] ####Environment Friendly Landscape Designer: NIEVES RUIZ ([id number])[address] IMMATURE GRANS ABSOLUTE 0.1 10*3/uL High <0.[address] [facility] Comment on above: Performed By: #### L [id number] ####Environment Friendly Landscape Designer: NIEVES RUIZ ([phone])[address] Lymphocytes (Bld) [#/Vol] 0.9 10*3/uL Low 1.0-4.[address] [facility] Comment on above: Performed By: #### L [id number] ####Environment Friendly Landscape Designer: NIEVES RUIZ ([phone])[facility])[address] [place] [address] Lymphocytes/100 WBC (Bld) 10.9 % Low 15.0-45.[address] [facility] Comment on above: Performed By: #### L [id number] ####Environment Friendly Landscape Designer: NIEVES RUIZ ([phone])[facility])[address] [place] [address] MCH (RBC) [Entitic mass] 30.0 pg Normal 26.0-34.[address] [facility] Comment on above: Performed By: #### L [id number] ####Environment Friendly Landscape Designer: NIEVES RUIZ ([phone])[facility])[address] [place] [address] MCHC 32.5 % Normal 30.5-36.[address] [facility] Comment on above: Performed By: #### L [id number] ####Environment Friendly Landscape Designer: NIEVES RUIZ ([phone])[facility] ([facility])[address] [place] [address] MCV (RBC) [Entitic vol] 92.4 fL Normal 77.0-99.0 [facility] Comment on above: Performed By: #### L [id number] ####Environment Friendly Landscape Designer: NIEVES RUIZ ([phone])[facility])[address] [place] [address] Monocytes (Bld) [#/Vol] 0.7 10*3/uL Normal 0.0-0.[address] [facility] Comment on above: Performed By: #### L [id number] ####Environment Friendly Landscape Designer: NIEVES RUIZ ([phone])[facility])[address] [place] [address] Monocytes/100 WBC (Bld) 8.1 % Normal 5.0-13.0 [facility] Comment on above: Performed By: #### L [id number] ####Environment Friendly Landscape Designer: NIEVES RUIZ ([phone])[facility])[address] [place] [address] NEUTROPHILS ABSOLUTE 6.4 10*3/uL Normal 1.8-7.5 [facility] Comment on above: Performed By: #### L [id number] ####Environment Friendly Landscape Designer: NIEVES RUIZ ([phone])[facility] ([facility])[address] [place] [address] Neutrophils/100 WBC (Bld) 77.1 % Normal 38.0-82.0 [facility] Comment on above: Performed By: #### L [id number] ####Environment Friendly Landscape Designer: NIEVES RUIZ ([phone])[facility] ([facility])[address] [place] [address] NRBC 0.0 /100 WBCs Normal 0.0-2.0 [facility] Comment on above: Performed By: #### L [id number] ####Environment Friendly Landscape Designer: NIEVES RUIZ ([phone])[facility] ([facility])[address] [place] [address] Platelet mean volume (Bld) [Entitic vol] 11.1 fL Normal 9.0-12.7 [facility] Comment on above: Performed By: #### L [id number] ####Environment Friendly Landscape Designer: NIEVES RUIZ ([phone])[facility] ([facility])[address] [place] [address] Platelets (Bld) [#/Vol] 293 10*3/uL Normal 140-440 [facility] Comment on above: Performed By: #### L [id number] ####Environment Friendly Landscape Designer: NIEVES RUIZ ([phone])[facility] ([facility])[address] [place] [address] [place] RBC (Bld) [#/Vol] 3.43 10*6/uL Low 3.80-5.[address] [facility] Comment on above: Performed By: #### L [id number] ####Environment Friendly Landscape Designer: NIEVES RUIZ ([id number])[facility] ([facility])[address] [place] [address] [place] WBC (Bld) [#/Vol] 8.3 10*3/uL Normal 3.6-10.[address] [facility] Comment on above: Performed By: #### L [id number] ####Environment Friendly Landscape Designer: NIEVES RUIZ ([phone])[facility])[address] [place] [address] Laboratory - Chemistry and C hemistry - challengeon 05-17-2025 Glucose [Mass/Vol] 184 mg/dL High 70 - 100 mg/dL [facility] Glucose [Mass/Vol] 203 mg/dL High 70 - 100 mg/dL [facility] Glucose [Mass/Vol] 169 mg/dL High 70 - 100 mg/dL [facility] Glucose [Mass/Vol] 126 mg/dL High 70 - 100 mg/dL [facility] No Panel Informationon 05-17 Interpretation and review of laboratory results Abnormal [facility] Interpretation and review of laboratory results Abnormal [facility] Interpretation and review of laboratory results Abnormal [facility] Interpretation and review of laboratory results Abnormal [facility] Progress Noteon 05-17-2025 Progress Note Normal [facility] Progress Note Normal [facility] Progress Note Normal [facility] BASIC METABOLIC PANELon 04-23 Anion gap [Moles/Vol] 6 mmol/L Normal 3-13 [facility] Comment on above: Performed By: #### L [id number] ####Environment Friendly Landscape Designer: NIVEES RUIZ ([phone])[facility] ([facility])[address] [place] [address] Calcium [Mass/Vol] 8.2 mg/dL Low 8.8-10.[address] [facility] Comment on above: Performed By: #### L [id number] ####Environment Friendly Landscape Designer: NIEVES RUIZ ([phone])[facility])[address] [place] [address] Chloride [Moles/Vol] 110 mmol/L High 98-107 [facility] Comment on above: Performed By: #### L [id number] ####Environment Friendly Landscape Designer: NIEVES RUIZ ([phone])[facility])[address] [place] [address] CO2 [Moles/Vol] 21 mmol/L Low 23-31 [facility] Comment on above: Performed By: #### L AB15 ####Environment Friendly Landscape Designer: NIEVES RUIZ ([phone])[facility])[address] [place] [address] Creatinine [Mass/Vol] 0.70 mg/dL Normal 0.58-1.12 [facility] Comment on above: Performed By: #### L AB15 ####Environment Friendly Landscape Designer: NIEVES RUIZ ([phone])[facility] ([facility])[address] [place] [address] GLOMERULAR FILTRATION RATE ML/MIN/1.73 SQ M.PREDICTED >90.0 Normal >60.0 [facility] Comment on above: Result Comment: Calc ulation based on the Chronic Kidney Disease Epidemiology Collaboration (CKD-EPI) equation refit without adjustment for race Performed By: #### L [id number] ####Environment Friendly Landscape Designer: NIEVES RUIZ ([phone])[facility] [place] [address] Glucose [Mass/Vol] 98 mg/dL Normal 82-115 [facility] Comment on above: Performed By: #### L [id number] ####Environment Friendly Landscape Designer: NIEVES RUIZ ([phone])[facility] ([facility])[address] [place] [address] Potassium [Moles/Vol] 3.8 mmol/L Normal 3.5-5.1 [facility] Comment on above: Result Comment: [facility] potassium values may be up to 0.5 mmol/L lower than serum values. Performed By: #### L [id number] ####Environment Friendly Landscape Designer: NIEVES RUIZ ([phone])[facility] ([facility])[address] [place] [address] [place] Sodium [Moles/Vol] 137 mmol/L Normal 136-145 [facility] Comment on above: Performed By: #### L [id number] ####Environment Friendly Landscape Designer: NIEVES RUIZ ([phone])[facility] ([facility])[address] Urea nitrogen [Mass/Vol] 17 mg/dL Normal - [facility] Comment on above: Performed By: #### L [id number] ####Environment Friendly Landscape Designer: NIEVES RUIZ ([phone])[facility] ([facility])[address] [place] [address] Bacteria identified Cx Nom ( Bld)on 05-16-2025 Interpretation and review of laboratory results Normal [facility] Basic metabolic 1998 panelon 05-16-2025 Anion gap [Moles/Vol] 6 mmol/L 3 - 13 mmol/L [facility] Calcium [Mass/Vol] 8.2 mg/dL Low 8.8 - 10. 0 mg/dL [facility] Chloride [Moles/Vol] 110 mmol/L High 98 - 10 7 mmol/L [facility] CO2 [Moles/Vol] 21 mmol/L Low 23 - 31 mmol/L [facility] Creatinine [Mass/Vol] 0.7 mg/dL 0.58 - 1.12 mg/dL [facility] GFR/1.73 sq M.predicted (S/P/Bld) [Vol rate/Area] - PINF [facility] Glucose [Mass/Vol] 98 mg/dL 82 - 115 mg/dL [facility] Interpretation and review of laboratory results Abnormal [facility] Potassium [Moles/Vol] 3.8 mmol/L 3.5 - 5.1 mmol/L [facility] Sodium [Moles/Vol] 137 mmol/L 136 - 145 mmol/L [facility] Urea nitrogen [Mass/Vol] 17 mg/dL 9 - 23 mg/dL [facility] CBC W Auto Differential pane l (Bld)on 05-16-2025 Basophils (Bld) [#/Vol] 0.1 10*3/uL 0.0 - 0.2 10*3/uL [facility] Basophils/100 WBC (Bld) 0.6 % 0.0 - 2.0 % [facility] Eosinophils (Bld) [#/Vol] 0.2 10*3/uL 0. 0 - 0.5 10*3/uL [facility] Eosinophils/100 WBC (Bld) 2.5 % 0.0 - 6.0 % [facility] Erythrocyte distribution width (RBC) [Ratio] 13.2 % 11.5 - 15.0 % [facility] Hematocrit (Bld) [Volume fraction] 33.5 % Low 35.0 - 47.0 % [facility] Hemoglobin (Bld) [Mass/Vol] 10.6 g/dL Low 11.7 - 16.0 g/dL [facility] Immature granulocytes (Bld) [#/Vol] 0.1 10*3/uL High NINF - 0.1 10*3/uL [facility] Immature granulocytes/100 WBC (Bld) 1.6 % 0.0 - 2.0 % [facility] Interpretation and review of laboratory results Abnormal [facility] th Lymphocytes (Bld) [#/Vol] 0.9 10*3/uL Low 1. 0 - 4.3 10*3/uL [facility] Lymphocytes/100 WBC (Bld) 10.6 % Low 15 .0 - 45.0 % [facility] MCH (RBC) [Entitic mass] 29.5 pg 26. 0 - 34.0 pg [facility] MCHC (RBC) [Mass/Vol] 31.6 % 30.5 - 36.0 % [facility] MCV (RBC) [Entitic vol] 93.3 fL 77.0 - 99.0 fL [facility] Monocytes (Bld) [#/Vol] 0.5 10*3/uL 0.0 - 0.9 10*3/uL [facility] Monocytes/100 WBC (Bld) 6 % 5.0 - 13.0 % [facility] Neutrophils (Bld) [#/Vol] 6.6 10*3/uL 1. 8 - 7.5 10*3/uL [facility] Neutrophils/100 WBC (Bld) 78.7 % 38 .0 - 82.0 % [facility] Nucleated RBC/100 WBC (Bld) [Ratio] 0 % [facility] Platelet mean volume (Bld) [Entitic vol] 11.1 fL 9.0 - 12.7 fL [facility] Platelets (Bld) [#/Vol] 305 10*3/uL 140 - 440 10*3/uL [facility] RBC (Bld) [#/Vol] 3.59 10*6/uL Low 3.80 - 5.2 0 10*6/uL [facility] WBC (Bld) [#/Vol] 8.4 10*3/uL 3.6 - 10.7 10*3/uL [facility] CBC WITH AUTO DIFFERENTIALon 05-16-2025 Basophils (Bld) [#/Vol] 0.1 10*3/uL Normal 0.0-0.[address] [facility] Comment on above: Performed By: #### L [id number] ####Environment Friendly Landscape Designer: NIEVES RUIZ ([phone])[facility])[address] [place] [address] Basophils/100 WBC (Bld) 0.6 % Normal 0.0-2.0 [facility] Comment on above: Performed By: #### L [id number] ####Environment Friendly Landscape Designer: NIEVES RUIZ ([phone])[facility])[address] [place] [address] Eosinophils (Bld) [#/Vol] 0.2 10*3/uL Normal 0.0-0.[address] [facility] Comment on above: Performed By: #### L [id number] ####Environment Friendly Landscape Designer: NIEVES RUIZ ([phone])[facility])[address] [place] [address] Eosinophils/100 WBC (Bld) 2.5 % Normal 0.0-6.[address] [facility] Comment on above: Performed By: #### L [id number] ####Environment Friendly Landscape Designer: NIEVES RUIZ ([phone])[facility])[address] [place] [address] Erythrocyte distribution width (RBC) [Ratio] 13.2 % Normal 11.5-15.[address] [facility] Comment on above: Performed By: #### L [id number] ####Environment Friendly Landscape Designer: NIEVES RUIZ ([phone])[facility])[address] [place] [address] Hematocrit (Bld) [Volume fraction] 33.5 % Low 35.0-47.[address] [facility] Comment on above: Performed By: #### L [id number] ####Environment Friendly Landscape Designer: NIEVES [id number])[facility])[address] [place] [address] Hemoglobin (Bld) [Mass/Vol] 10.6 g/dL Low 11.7-16.[address] [facility] Comment on above: Performed By: #### L [id number] ####Environment Friendly Landscape Designer: NIEVES RUIZ ([phone])[facility])[address] [place] [address] IMMATURE GRANS % 1.6 % Normal 0.0-2.0 [facility] Comment on above: Performed By: #### L [id number] ####Environment Friendly Landscape Designer: NIEVES RUIZ ([phone])[facility])[address] [place] [address] IMMATURE GRANS ABSOLUTE 0.1 10*3/uL High <0.[address] [facility] Comment on above: Performed By: #### L [id number] ####Environment Friendly Landscape Designer: NIEVES RUIZ ([phone])[facility])[address] [place] [address] Lymphocytes (Bld) [#/Vol] 0.9 10*3/uL Low 1.0-4.[address] [facility] Comment on above: Performed By: #### L [id number] ####Environment Friendly Landscape Designer: NIEVES RUIZ ([phone])[facility])[address] [place] [address] Lymphocytes/100 WBC (Bld) 10.6 % Low 15.0-45.[address] [facility] Comment on above: Performed By: #### L [id number] ####Environment Friendly Landscape Designer: NIEVES RUIZ ([phone])[facility])[address] [place] [address] MCH (RBC) [Entitic mass] 29.5 pg Normal 26.0-34.[address] [facility] Comment on above: Performed By: #### L [id number] ####Environment Friendly Landscape Designer: NIEVES RUIZ ([phone])[facility])[address] [place] [address] MCHC 31.6 % Normal 30.5-36.[address] [facility] Comment on above: Performed By: #### L [id number] ####Environment Friendly Landscape Designer: NIEVES RUIZ ([id number])[facility])[address] [place] [address] MCV (RBC) [Entitic vol] 93.3 fL Normal 77.0-99.0 [facility] Comment on above: Performed By: #### L [id number] ####Environment Friendly Landscape Designer: NIEVES RUIZ ([phone])[facility] ([facility])[address] [place] [address] Monocytes (Bld) [#/Vol] 0.5 10*3/uL Normal 0.0-0.[address] [facility] Comment on above: Performed By: #### L [id number] ####Environment Friendly Landscape Designer: NIEVES RUIZ ([phone])[facility])[address] [place] [address] Monocytes/100 WBC (Bld) 6.0 % Normal 5.0-13.0 [facility] Comment on above: Performed By: #### L [id number] ####Environment Friendly Landscape Designer: NIEVES RUIZ ([phone])[facility])[address] [place] [address] NEUTROPHILS ABSOLUTE 6.6 10*3/uL Normal 1.8-7.5 [facility] Comment on above: Performed By: #### L [id number] ####Environment Friendly Landscape Designer: NIEVES RUIZ ([phone])[facility])[address] [place] [address] Neutrophils/100 WBC (Bld) 78.7 % Normal 38.0-82.[address] [facility] Comment on above: Performed By: #### L [id number] ####Environment Friendly Landscape Designer: NIEVES RUIZ ([phone])[facility])[address] [place] [address] NRBC 0.0 /100 WBCs Normal 0.0-2.0 [facility] Comment on above: Performed By: #### L [id number] ####Environment Friendly Landscape Designer: NIEVES RUIZ ([phone])[facility] ([facility])[address] [place] [address] Platelet mean volume (Bld) [Entitic vol] 11.1 fL Normal 9.0-12.7 [facility] Comment on above: Performed By: #### L [id number] ####Environment Friendly Landscape Designer: NIEVES RUIZ ([phone])[facility] ([facility])[address] [place] [address] Platelets (Bld) [#/Vol] 305 10*3/uL Normal 140-440 [facility] Comment on above: Performed By: #### L [id number] ####Environment Friendly Landscape Designer: NIEVES RUIZ ([phone])[facility] ([facility])[address] [place] [address] RBC (Bld) [#/Vol] 3.59 10*6/uL Low 3.80-5.20 [facility] Comment on above: Performed By: #### L [id number] ####Environment Friendly Landscape Designer: NIEVES RUIZ ([phone])[facility] ([facility])[address] [place] [address] WBC (Bld) [#/Vol] 8.4 10*3/uL Normal 3.6-10.7 [facility] Comment on above: Performed By: #### L [id number] ####Environment Friendly Landscape Designer: NIEVES RUIZ ([phone])[facility] ([facility])[address] [place] [address] Consulton 05-16-2025 Consult Normal [facility] Laboratory - Chemistry and C hemistry - challengeon 05-16-2025 Glucose [Mass/Vol] 190 mg/dL High 70 - 100 mg/dL [facility] Glucose [Mass/Vol] 209 mg/dL High 70 - 100 mg/dL [facility] Glucose [Mass/Vol] 173 mg/dL High 70 - 100 mg/dL [facility] Glucose [Mass/Vol] 123 mg/dL High 70 - 100 mg/dL [facility] Laboratory - Microbiology an d Antimicrobial susceptibilityon 05-16-2025 Bacteria identified Cx Nom (Bld) No growth at 5 days [facility] No Panel Informationon 05-16 Interpretation and review of laboratory results Abnormal [facility] Interpretation and review of laboratory results Abnormal [facility] Interpretation and review of laboratory results Abnormal [facility] Interpretation and review of laboratory results Abnormal [facility] Progress Noteon 05-16-2025 Progress Note Normal [facility] [id number] 05-15-2025 [id number] Normal [facility] BASIC METABOLIC PANELon 04-23 Anion gap [Moles/Vol] 4 mmol/L Normal 3-13 [facility] Comment on above: Performed By: #### L [id number] ####Environment Friendly Landscape Designer: NIEVES RUIZ ([phone])[facility] ([facility])[address] [place] [address] Calcium [Mass/Vol] 8.3 mg/dL Low 8.8-10.0 [facility] Comment on above: Performed By: #### L [id number] ####Environment Friendly Landscape Designer: NIEVES RUIZ ([phone])[facility] ([facility])[address] [place] [address] Chloride [Moles/Vol] 111 mmol/L High 98-107 [facility] Comment on above: Performed By: #### L [id number] ####Environment Friendly Landscape Designer: NIEVES RUIZ ([phone])[facility] ([facility])[address] [place] [address] [place] CO2 [Moles/Vol] 22 mmol/L Low 23-31 [facility] Comment on above: Performed By: #### L [id number] ####Environment Friendly Landscape Designer: NIEVES RUIZ ([phone])[facility] ([facility])[address] [place] [address] Creatinine [Mass/Vol] 0.66 mg/dL Normal 0.58-1.12 [facility] Comment on above: Performed By: #### L [id number] ####Environment Friendly Landscape Designer: NIEVES [id number])[facility])[address] [place] [address] GLOMERULAR FILTRATION RATE ML/MIN/1.73 SQ M.PREDICTED >90.0 Normal >60.0 [facility] Comment on above: Result Comment: Calc ulation based on the Chronic Kidney Disease Epidemiology Collaboration (CKD-EPI) equation refit without adjustment for race Performed By: #### L [id number] ####Environment Friendly Landscape Designer: NIEVES RUIZ ([phone])[facility])[address] [place] [address] Glucose [Mass/Vol] 74 mg/dL Low 82-115 [facility] Comment on above: Performed By: #### L [id number] ####Environment Friendly Landscape Designer: NIEVES RUIZ ([phone])[address] Potassium [Moles/Vol] 3.6 mmol/L Normal 3.5-5.1 [facility] Comment on above: Result Comment: [facility] potassium values may be up to 0.5 mmol/L lower than serum values. Performed By: #### L [id number] ####Environment Friendly Landscape Designer: NIEVES RUIZ ([phone])[facility])[address] [place] [address] Sodium [Moles/Vol] 137 mmol/L Normal 136-145 [facility] Comment on above: Performed By: #### L [id number] ####Environment Friendly Landscape Designer: NIEVES RUIZ ([phone])[address] Urea nitrogen [Mass/Vol] 19 mg/dL Normal 9-23 [facility] Comment on above: Performed By: #### L [id number] ####Environment Friendly Landscape Designer: NIEVES RUIZ ([phone])[address] Basic metabolic 1998 panelon 05-15-2025 Anion gap [Moles/Vol] 4 mmol/L 3 - 13 mmol/L [facility] Calcium [Mass/Vol] 8.3 mg/dL Low 8.8 - 10. 0 mg/dL [facility] Chloride [Moles/Vol] 111 mmol/L High 98 - 10 7 mmol/L [facility] CO2 [Moles/Vol] 22 mmol/L Low 23 - 31 mmol/L [facility] Creatinine [Mass/Vol] 0.66 mg/dL 0.58 - 1.12 mg/dL [facility] GFR/1.73 sq M.predicted (S/P/Bld) [Vol rate/Area] - PINF [facility] Glucose [Mass/Vol] 74 mg/dL Low 82 - 115 mg/dL [facility] Interpretation and review of laboratory results Abnormal [facility] Potassium [Moles/Vol] 3.6 mmol/L 3.5 - 5.1 mmol/L [facility] Sodium [Moles/Vol] 137 mmol/L 136 - 145 mmol/L [facility] Urea nitrogen [Mass/Vol] 19 mg/dL 9 - 23 mg/dL [facility] CBC W Auto Differential pane l (Bld)on 05-15-2025 Basophils (Bld) [#/Vol] 0 10*3/uL 0.0 - 0.2 10*3/uL [facility] Basophils/100 WBC (Bld) 0.5 % 0.0 - 2.0 % [facility] Eosinophils (Bld) [#/Vol] 0.2 10*3/uL 0. 0 - 0.5 10*3/uL [facility] Eosinophils/100 WBC (Bld) 2.4 % 0.0 - 6.0 % [facility] Erythrocyte distribution width (RBC) [Ratio] 13.1 % 11.5 - 15.0 % [facility] Hematocrit (Bld) [Volume fraction] 33.2 % Low 35.0 - 47.0 % [facility] Hemoglobin (Bld) [Mass/Vol] 10.6 g/dL Low 11.7 - 16.0 g/dL [facility] Immature granulocytes (Bld) [#/Vol] 0.1 10*3/uL High NINF - 0.1 10*3/uL [facility] Immature granulocytes/100 WBC (Bld) 1 % 0.0 - 2.0 % [facility] Interpretation and review of laboratory results Abnormal [facility] th Lymphocytes (Bld) [#/Vol] 0.8 10*3/uL Low 1. 0 - 4.3 10*3/uL [facility] Lymphocytes/100 WBC (Bld) 9.3 % Low 15 .0 - 45.0 % [facility] MCH (RBC) [Entitic mass] 29.8 pg 26. 0 - 34.0 pg [facility] MCHC (RBC) [Mass/Vol] 31.9 % 30.5 - 36.0 % [facility] MCV (RBC) [Entitic vol] 93.3 fL 77.0 - 99.0 fL [facility] Monocytes (Bld) [#/Vol] 0.5 10*3/uL 0.0 - 0.9 10*3/uL [facility] Monocytes/100 WBC (Bld) 6 % 5.0 - 13.0 % [facility] Neutrophils (Bld) [#/Vol] 6.6 10*3/uL 1. 8 - 7.5 10*3/uL [facility] Neutrophils/100 WBC (Bld) 80.8 % 38 .0 - 82.0 % [facility] Nucleated RBC/100 WBC (Bld) [Ratio] 0 % [facility] Platelet mean volume (Bld) [Entitic vol] 11.6 fL 9.0 - 12.7 fL [facility] Platelets (Bld) [#/Vol] 323 10*3/uL 140 - 440 10*3/uL [facility] RBC (Bld) [#/Vol] 3.56 10*6/uL Low 3.80 - 5.2 0 10*6/uL [facility] WBC (Bld) [#/Vol] 8.2 10*3/uL 3.6 - 10.7 10*3/uL [facility] CBC WITH AUTO DIFFERENTIALon 05-15-2025 Basophils (Bld) [#/Vol] 0.0 10*3/uL Normal 0.0-0.[address] [facility] Comment on above: Performed By: #### L [id number] ####Environment Friendly Landscape Designer: NIEVES RUIZ ([phone])[facility] ([address] Basophils/100 WBC (Bld) 0.5 % Normal 0.0-2.0 [facility] Comment on above: Performed By: #### L [id number] ####Environment Friendly Landscape Designer: NIEVES RUIZ ([phone])[facility])[address] [place] [address] Eosinophils (Bld) [#/Vol] 0.2 10*3/uL Normal 0.0-0.[address] [facility] Comment on above: Performed By: #### L [id number] ####Environment Friendly Landscape Designer: NIEVES RUIZ ([phone])[facility])[address] [place] [address] Eosinophils/100 WBC (Bld) 2.4 % Normal 0.0-6.[address] [facility] Comment on above: Performed By: #### L [id number] ####Environment Friendly Landscape Designer: NIEVES RUIZ ([phone])[address] Erythrocyte distribution width (RBC) [Ratio] 13.1 % Normal 11.5-15.[address] [facility] Comment on above: Performed By: #### L [id number] ####Environment Friendly Landscape Designer: NIEVES RUIZ ([phone])[facility])[address] [place] [address] Hematocrit (Bld) [Volume fraction] 33.2 % Low 35.0-47.[address] [facility] Comment on above: Performed By: #### L [id number] ####Environment Friendly Landscape Designer: NIEVES RUIZ ([phone])[address] Hemoglobin (Bld) [Mass/Vol] 10.6 g/dL Low 11.7-16.[address] [facility] Comment on above: Performed By: #### L [id number] ####Environment Friendly Landscape Designer: NIEVES RUIZ ([phone])[facility])[address] [place] [address] IMMATURE GRANS % 1.0 % Normal 0.0-2.0 [facility] Comment on above: Performed By: #### L [id number] ####Environment Friendly Landscape Designer: NIEVES RUIZ ([phone])[address] IMMATURE GRANS ABSOLUTE 0.1 10*3/uL High <0.[address] [facility] Comment on above: Performed By: #### L [id number] ####Environment Friendly Landscape Designer: NIEVES RUIZ ([phone])[facility])[address] [place] [address] Lymphocytes (Bld) [#/Vol] 0.8 10*3/uL Low 1.0-4.[address] [facility] Comment on above: Performed By: #### L [id number] ####Environment Friendly Landscape Designer: NIEVES RUIZ ([phone])[facility])[address] [place] [address] Lymphocytes/100 WBC (Bld) 9.3 % Low 15.0-45.[address] [facility] Comment on above: Performed By: #### L [id number] ####Environment Friendly Landscape Designer: NIEVES RUIZ ([id number])[facility])[address] [place] [address] MCH (RBC) [Entitic mass] 29.8 pg Normal 26.0-34.[address] [facility] Comment on above: Performed By: #### L [id number] ####Environment Friendly Landscape Designer: NIEVES RUIZ ([phone])[facility])[address] [place] [address] MCHC 31.9 % Normal 30.5-36.[address] [facility] Comment on above: Performed By: #### L [id number] ####Environment Friendly Landscape Designer: NIEVES RUIZ ([phone])[facility])[address] [place] [address] MCV (RBC) [Entitic vol] 93.3 fL Normal 77.0-99.0 [facility] Comment on above: Performed By: #### L [id number] ####Environment Friendly Landscape Designer: NIEVES RUIZ ([phone])[facility])[address] [place] [address] Monocytes (Bld) [#/Vol] 0.5 10*3/uL Normal 0.0-0.[address] [facility] Comment on above: Performed By: #### L [id number] ####Environment Friendly Landscape Designer: NIEVES RUIZ ([phone])[facility] ([facility])[address] [place] [address] Monocytes/100 WBC (Bld) 6.0 % Normal 5.0-13.0 [facility] Comment on above: Performed By: #### L [id number] ####Environment Friendly Landscape Designer: NIEVES RUIZ ([phone])[facility] ([facility])[address] [place] [address] NEUTROPHILS ABSOLUTE 6.6 10*3/uL Normal 1.8-7.5 [facility] Comment on above: Performed By: #### L [id number] ####Environment Friendly Landscape Designer: NIEVES RUIZ ([phone])[facility] ([facility])[address] [place] [address] Neutrophils/100 WBC (Bld) 80.8 % Normal 38.0-82.[address] [facility] Comment on above: Performed By: #### L [id number] ####Environment Friendly Landscape Designer: NIEVES RUIZ ([id number])[facility] ([facility])[address] [place] [address] NRBC 0.0 /100 WBCs Normal 0.0-2.0 [facility] Comment on above: Performed By: #### L [id number] ####Environment Friendly Landscape Designer: NIEVES RUIZ ([phone])[facility] ([facility])[address] [place] [address] Platelet mean volume (Bld) [Entitic vol] 11.6 fL Normal 9.0-12.[address] [facility] Comment on above: Performed By: #### L [id number] ####Environment Friendly Landscape Designer: NIEVES RUIZ ([phone])[facility] ([facility])[address] [place] [address] [place] Platelets (Bld) [#/Vol] 323 10*3/uL Normal 140-[address] [facility] Comment on above: Performed By: #### L [id number] ####Environment Friendly Landscape Designer: NIEVES RUIZ ([id number])[facility] ([facility])[address] [place] [address] RBC (Bld) [#/Vol] 3.56 10*6/uL Low 3.80-5.[address] [facility] Comment on above: Performed By: #### L [id number] ####Environment Friendly Landscape Designer: NIEVES RUIZ ([phone])[facility])[address] [place] [address] WBC (Bld) [#/Vol] 8.2 10*3/uL Normal 3.6-10.[address] [facility] [facility] [facility] Comment on above: Performed By: #### L [id number] ####Environment Friendly Landscape Designer: NIEVES RUIZ ([phone])[facility])[address] [place] [address] Laboratory - Chemistry and C hemistry - challengeon 05-15-2025 Glucose [Mass/Vol] 155 mg/dL High 70 - 100 mg/dL [facility] Glucose [Mass/Vol] 178 mg/dL High 70 - 100 mg/dL [facility] Glucose [Mass/Vol] 192 mg/dL High 70 - 100 mg/dL [facility] Glucose [Mass/Vol] 77 mg/dL 70 - 100 mg/dL [facility] No Panel Informationon 05-15 Interpretation and review of laboratory results Abnormal [facility] Interpretation and review of laboratory results Abnormal [facility] Interpretation and review of laboratory results Abnormal [facility] Interpretation and review of laboratory results Normal [facility] Progress Noteon 05-15-2025 Progress Note Normal [facility] Progress Note Normal [facility] Progress Note Normal [facility] Progress Note Normal [facility] BASIC METABOLIC PANELon 04-23 Anion gap [Moles/Vol] 7 mmol/L Normal 3-13 [facility] Comment on above: Performed By: #### L [id number], LAB15, [id number] ####Environment Friendly Landscape Designer: NIEVES RUIZ ([phone])[facility] ([facility])[address] [place] [address] Calcium [Mass/Vol] 8.0 mg/dL Low 8.8-10.0 [facility] Comment on above: Performed By: #### Wayne HERNANDEZ21, LAB15, [id number] ####Environment Friendly Landscape Designer: NIEVES RUIZ ([phone])[facility] [place] [address] Chloride [Moles/Vol] 113 mmol/L High 98-107 [facility] Comment on above: Performed By: #### Wayne HERNANDEZ21, LAB15, [id number] ####Environment Friendly Landscape Designer: NIEVES RUIZ ([phone])[facility] ([facility])[address] [place] [address] CO2 [Moles/Vol] 20 mmol/L Low 23-31 [facility] Comment on above: Performed By: #### Wayne CAICEDO, LAB15, [id number] ####Environment Friendly Landscape Designer: NIEVES RUIZ ([phone])[facility] ([facility])[address] [place] [address] Creatinine [Mass/Vol] 0.70 mg/dL Normal 0.58-1.12 [facility] Comment on above: Performed By: #### Wayne CAICEDO, LAB15, [id number] ####Environment Friendly Landscape Designer: NIEVES RUIZ ([phone])[facility] ([facility])[address] [place] [address] GLOMERULAR FILTRATION RATE ML/MIN/1.73 SQ M.PREDICTED >90.0 Normal >60.0 [facility] Comment on above: Result Comment: Calc ulation based on the Chronic Kidney Disease Epidemiology Collaboration (CKD-EPI) equation refit without adjustment for race Performed By: #### Wayne HERNANDEZ21, LAB15, [id number] ####Environment Friendly Landscape Designer: NIEVES RUIZ ([phone])[facility])[address] [place] [address] Glucose [Mass/Vol] 115 mg/dL Normal 82-115 [facility] Comment on above: Performed By: #### Wayne CAICEDO, LAB15, [id number] ####Environment Friendly Landscape Designer: NIEVES [phone])[facility] ([facility])[address] [place] [address] Potassium [Moles/Vol] 3.4 mmol/L Low 3.5-5.1 [facility] Comment on above: Result Comment: [facility] potassium values may be up to 0.5 mmol/L lower than serum values. Performed By: #### L [id number], LAB15, [id number] ####Environment Friendly Landscape Designer: NIEVES RUIZ ([phone])[facility] ([facility])[address] [place] [address] Sodium [Moles/Vol] 140 mmol/L Normal 136-145 [facility] Comment on above: Performed By: #### L [id number], LAB15, [id number] ####Environment Friendly Landscape Designer: NIEVES RUIZ ([phone])[facility] ([facility])[address] [place] [address] Urea nitrogen [Mass/Vol] 16 mg/dL Normal 9-23 [facility] Comment on above: Performed By: #### L [id number], LAB15, [id number] ####Environment Friendly Landscape Designer: NIEVES RUIZ ([phone])[facility] ([facility])[address] [place] [address] Basic metabolic 1998 panelon 05-14-2025 Anion gap [Moles/Vol] 7 mmol/L 3 - 13 mmol/L [facility] Calcium [Mass/Vol] 8 mg/dL Low 8.8 - 10. 0 mg/dL [facility] Chloride [Moles/Vol] 113 mmol/L High 98 - 10 7 mmol/L [facility] CO2 [Moles/Vol] 20 mmol/L Low 23 - 31 mmol/L [facility] Creatinine [Mass/Vol] 0.7 mg/dL 0.58 - 1.12 mg/dL [facility] GFR/1.73 sq M.predicted (S/P/Bld) [Vol rate/Area] - PINF [facility] Glucose [Mass/Vol] 115 mg/dL 82 - 115 mg/dL [facility] Interpretation and review of laboratory results Abnormal [facility] Potassium [Moles/Vol] 3.4 mmol/L Low 3.5 - 5.1 mmol/L [facility] Sodium [Moles/Vol] 140 mmol/L 136 - 145 mmol/L [facility] Urea nitrogen [Mass/Vol] 16 mg/dL 9 - 23 mg/dL [facility] CBC W Auto Differential pane l (Bld)on 05-14-2025 Basophils (Bld) [#/Vol] 0 10*3/uL 0.0 - 0.2 10*3/uL [facility] Basophils/100 WBC (Bld) 0.5 % 0.0 - 2.0 % [facility] Eosinophils (Bld) [#/Vol] 0.2 10*3/uL 0. 0 - 0.5 10*3/uL [facility] Eosinophils/100 WBC (Bld) 2.2 % 0.0 - 6.0 % [facility] Erythrocyte distribution width (RBC) [Ratio] 13.2 % 11.5 - 15.0 % [facility] Hematocrit (Bld) [Volume fraction] 30 % Low 35.0 - 47.0 % [facility] Hemoglobin (Bld) [Mass/Vol] 9.6 g/dL Low 11.7 - 16.0 g/dL [facility] Immature granulocytes (Bld) [#/Vol] 0.1 10*3/uL High NINF - 0.1 10*3/uL [facility] Immature granulocytes/100 WBC (Bld) 0.7 % 0.0 - 2.0 % [facility] Interpretation and review of laboratory results Abnormal [facility] th Lymphocytes (Bld) [#/Vol] 0.7 10*3/uL Low 1. 0 - 4.3 10*3/uL [facility] Lymphocytes/100 WBC (Bld) 8.4 % Low 15 .0 - 45.0 % [facility] MCH (RBC) [Entitic mass] 29.9 pg 26. 0 - 34.0 pg [facility] MCHC (RBC) [Mass/Vol] 32 % 30.5 - 36.0 % [facility] MCV (RBC) [Entitic vol] 93.5 fL 77.0 - 99.0 fL [facility] Monocytes (Bld) [#/Vol] 0.5 10*3/uL 0.0 - 0.9 10*3/uL [facility] Monocytes/100 WBC (Bld) 5.7 % 5.0 - 13.0 % [facility] Neutrophils (Bld) [#/Vol] 7.2 10*3/uL 1. 8 - 7.5 10*3/uL [facility] Neutrophils/100 WBC (Bld) 82.5 % High 38 .0 - 82.0 % [facility] Nucleated RBC/100 WBC (Bld) [Ratio] 0 % [facility] Platelet mean volume (Bld) [Entitic vol] 10.9 fL 9.0 - 12.7 fL [facility] Platelets (Bld) [#/Vol] 264 10*3/uL 140 - 440 10*3/uL [facility] RBC (Bld) [#/Vol] 3.21 10*6/uL Low 3.80 - 5.2 0 10*6/uL [facility] WBC (Bld) [#/Vol] 8.7 10*3/uL 3.6 - 10.7 10*3/uL [facility] CBC WITH AUTO DIFFERENTIALon 05-14-2025 Basophils (Bld) [#/Vol] 0.0 10*3/uL Normal 0.0-0.[address] [facility] Comment on above: Performed By: #### L [id number] ####Environment Friendly Landscape Designer: NIEVES RUIZ ([phone])[facility])[address] [place] [address] Basophils/100 WBC (Bld) 0.5 % Normal 0.0-2.0 [facility] Comment on above: Performed By: #### L [id number] ####Environment Friendly Landscape Designer: NIEVES RUIZ ([phone])[facility])[address] [place] [address] Eosinophils (Bld) [#/Vol] 0.2 10*3/uL Normal 0.0-0.[address] [facility] Comment on above: Performed By: #### L [id number] ####Environment Friendly Landscape Designer: NIEVES RUIZ ([phone])[facility])[address] [place] [address] [place] Eosinophils/100 WBC (Bld) 2.2 % Normal 0.0-6.[address] [facility] Comment on above: Performed By: #### L [id number] ####Environment Friendly Landscape Designer: NIEVES RUIZ ([phone])[facility] ([facility])[address] [place] [address] Erythrocyte distribution width (RBC) [Ratio] 13.2 % Normal 11.5-15.[address] [facility] Comment on above: Performed By: #### L [id number] ####Environment Friendly Landscape Designer: NIEVES RUIZ ([phone])[facility])[address] [place] [address] Hematocrit (Bld) [Volume fraction] 30.0 % Low 35.0-47.[address] [facility] Comment on above: Performed By: #### L [id number] ####Environment Friendly Landscape Designer: NIEVES RUIZ ([phone])[facility])[address] [place] [address] Hemoglobin (Bld) [Mass/Vol] 9.6 g/dL Low 11.7-16.[address] [facility] Comment on above: Performed By: #### L [id number] ####Environment Friendly Landscape Designer: NIEVES RUIZ ([phone])[facility] ([facility])[address] [place] [address] IMMATURE GRANS % 0.7 % Normal 0.0-2.0 [facility] Comment on above: Performed By: #### L [id number] ####Environment Friendly Landscape Designer: NIEVES RUIZ ([phone])[facility])[address] [place] [address] IMMATURE GRANS ABSOLUTE 0.1 10*3/uL High <0.[address] [facility] Comment on above: Performed By: #### L [id number] ####Environment Friendly Landscape Designer: NIEVES RUIZ ([phone])[facility])[address] [place] [address] Lymphocytes (Bld) [#/Vol] 0.7 10*3/uL Low 1.0-4.[address] [facility] Comment on above: Performed By: #### L [id number] ####Environment Friendly Landscape Designer: NIEVES RUIZ ([phone])[facility])[address] [place] [address] Lymphocytes/100 WBC (Bld) 8.4 % Low 15.0-45.[address] [facility] Comment on above: Performed By: #### L [id number] ####Environment Friendly Landscape Designer: NIEVES RUIZ ([phone])[facility])[address] [place] [address] MCH (RBC) [Entitic mass] 29.9 pg Normal 26.0-34.[address] [facility] Comment on above: Performed By: #### L [id number] ####Environment Friendly Landscape Designer: NIEVES RUIZ ([phone])[facility])[address] [place] [address] MCHC 32.0 % Normal 30.5-36.[address] [facility] Comment on above: Performed By: #### L [id number] ####Environment Friendly Landscape Designer: NIEVES RUIZ ([phone])[facility])[address] [place] [address] MCV (RBC) [Entitic vol] 93.5 fL Normal 77.0-99.0 [facility] Comment on above: Performed By: #### L [id number] ####Environment Friendly Landscape Designer: NIEVES RUIZ ([phone])[facility])[address] [place] [address] Monocytes (Bld) [#/Vol] 0.5 10*3/uL Normal 0.0-0.[address] [facility] Comment on above: Performed By: #### L [id number] ####Environment Friendly Landscape Designer: NIEVES RUIZ ([phone])[facility])[address] [place] [address] Monocytes/100 WBC (Bld) 5.7 % Normal 5.0-13.0 [facility] Comment on above: Performed By: #### L [id number] ####Environment Friendly Landscape Designer: NIEVES RUIZ ([phone])[facility])[address] [place] [address] NEUTROPHILS ABSOLUTE 7.2 10*3/uL Normal 1.8-7.5 [facility] Comment on above: Performed By: #### L [id number] ####Environment Friendly Landscape Designer: NIEVES RUIZ ([phone])[facility] ([facility])[address] [place] [address] Neutrophils/100 WBC (Bld) 82.5 % High 38.0-82.[address] [facility] Comment on above: Performed By: #### L [id number] ####Environment Friendly Landscape Designer: NIEVES RUIZ ([phone])[facility] ([facility])[address] [place] [address] NRBC 0.0 /100 WBCs Normal 0.0-2.0 [facility] Comment on above: Performed By: #### L [id number] ####Environment Friendly Landscape Designer: NIEVES RUIZ ([phone])[facility] ([facility])[address] [place] [address] Platelet mean volume (Bld) [Entitic vol] 10.9 fL Normal 9.0-12.[address] [facility] Comment on above: Performed By: #### L [id number] ####Environment Friendly Landscape Designer: NIEVES RUIZ ([phone])[facility] ([facility])[address] [place] [address] Platelets (Bld) [#/Vol] 264 10*3/uL Normal 140-[address] [facility] Comment on above: Performed By: #### L [id number] ####Environment Friendly Landscape Designer: NIEVES RUIZ ([phone])[facility] ([facility])[address] [place] [address] RBC (Bld) [#/Vol] 3.21 10*6/uL Low 3.80-5.[address] [facility] Comment on above: Performed By: #### L [id number] ####Environment Friendly Landscape Designer: NIEVES RUIZ ([phone])[facility] ([facility])[address] [place] [address] WBC (Bld) [#/Vol] 8.7 10*3/uL Normal 3.6-10.[address] [facility] Comment on above: Performed By: #### L [id number] ####Environment Friendly Landscape Designer: NIEVES RUIZ ([id number])[facility] ([facility])[address] [place] [address] Laboratory - Chemistry and C hemistry - challengeon 05-14-2025 Glucose [Mass/Vol] 165 mg/dL High 70 - 100 mg/dL [facility] Glucose [Mass/Vol] 141 mg/dL High 70 - 100 mg/dL [facility] Glucose [Mass/Vol] 141 mg/dL High 70 - 100 mg/dL [facility] Glucose [Mass/Vol] 130 mg/dL High 70 - 100 mg/dL [facility] Procalcitonin [Mass/Vol] 0.25 ng/mL High ISAEL F - 0.07 ng/mL [facility] Magnesium [Mass/Vol] 1.8 mg/dL 1.6 - 2 .6 mg/dL [facility] MAGNESIUMon 05-14-2025 Magnesium [Mass/Vol] 1.8 mg/dL Normal 1.6-2.6 [facility] Comment on above: Result Comment: SUNG R COMMENTS:Higher values can be expected in females during menses. Performed By: #### L [id number], LAB15, [id number] ####Environment Friendly Landscape Designer: NIEVES RUIZ ([phone])[facility])[address] [place] [address] Magnesium [Mass/Vol]on 05-14 Interpretation and review of laboratory results Normal [facility] No Panel Informationon 05-14 Interpretation and review of laboratory results Abnormal [facility] Interpretation and review of laboratory results Abnormal [facility] Interpretation and review of laboratory results Abnormal [facility] Interpretation and review of laboratory results Abnormal [facility] PROCALCITONIN TESTon 025 PROCALCITONIN 0.25 ng/mL High <0.07 [facility] Comment on above: Result Comment: ORDE R COMMENTS:PCT <0.50 = Low risk of severe sepsis and/or septic shock.PCT >2.00 = High risk of severe sepsis and/or septic shock. Performed By: #### L [id number], LAB15, [id number] ####Environment Friendly Landscape Designer: NIEVES RUIZ ([phone])[facility] ([facility])[address] [place] [address] Procalcitonin [Mass/Vol]on Interpretation and review of laboratory results Abnormal [facility] Progress Noteon 05-14-2025 Progress Note Normal [facility] Progress Note Normal [facility] Progress Note Normal [facility] Bacteria identified Cx Nom ( U)Ordered By: Berta Dorman on 05-13-2025 Interpretation and review of laboratory results Normal [facility] C. DIFFICILE BY PCR WITH REF RONAN TO EIAon 05-13-2025 C. DIFFICILE BY PCR WITH REFLEX TO EIA C. DIFFICILE TOXIN PCR Reference Not Detected Not Detected ORDER COMMENTS: C. difficile infection is unlikely to be present. Methodology: Real-time PCR Normal [facility] Comment on above: Performed By: #### L [id number] ####Environment Friendly Landscape Designer: NIEVES RUIZ ([phone])[facility])[address] [place] [address] C. difficile toxin genes JEANNIE +probe Ql (Stl)on 05-13-2025 C. difficile toxin B tcdB gene JEANNIE+probe Ql (Stl) Not detected Not Detected [facility] Interpretation and review of laboratory results Normal [facility] CBC W Auto Differential pane l (Bld)on 05-13-2025 Basophils (Bld) [#/Vol] 0.1 10*3/uL 0.0 - 0.2 10*3/uL [facility] Basophils/100 WBC (Bld) 0.6 % 0.0 - 2.0 % [facility] Eosinophils (Bld) [#/Vol] 0.2 10*3/uL 0. 0 - 0.5 10*3/uL [facility] Eosinophils/100 WBC (Bld) 1.9 % 0.0 - 6.0 % [facility] Erythrocyte distribution width (RBC) [Ratio] 13.3 % 11.5 - 15.0 % [facility] Hematocrit (Bld) [Volume fraction] 32.9 % Low 35.0 - 47.0 % [facility] Hemoglobin (Bld) [Mass/Vol] 10.4 g/dL Low 11.7 - 16.0 g/dL [facility] Immature granulocytes (Bld) [#/Vol] 0.1 10*3/uL High NINF - 0.1 10*3/uL [facility] Immature granulocytes/100 WBC (Bld) 0.7 % 0.0 - 2.0 % [facility] Interpretation and review of laboratory results Abnormal [facility] th Lymphocytes (Bld) [#/Vol] 0.8 10*3/uL Low 1. 0 - 4.3 10*3/uL [facility] Lymphocytes/100 WBC (Bld) 7.7 % Low 15 .0 - 45.0 % [facility] MCH (RBC) [Entitic mass] 29.8 pg 26. 0 - 34.0 pg [facility] MCHC (RBC) [Mass/Vol] 31.6 % 30.5 - 36.0 % [facility] MCV (RBC) [Entitic vol] 94.3 fL 77.0 - 99.0 fL [facility] Monocytes (Bld) [#/Vol] 0.6 10*3/uL 0.0 - 0.9 10*3/uL [facility] Monocytes/100 WBC (Bld) 5.3 % 5.0 - 13.0 % [facility] Neutrophils (Bld) [#/Vol] 8.7 10*3/uL High 1. 8 - 7.5 10*3/uL [facility] Neutrophils/100 WBC (Bld) 83.8 % High 38 .0 - 82.0 % [facility] Nucleated RBC/100 WBC (Bld) [Ratio] 0 % [facility] Platelet mean volume (Bld) [Entitic vol] 11 fL 9.0 - 12.7 fL [facility] Platelets (Bld) [#/Vol] 303 10*3/uL 140 - 440 10*3/uL [facility] RBC (Bld) [#/Vol] 3.49 10*6/uL Low 3.80 - 5.2 0 10*6/uL [facility] WBC (Bld) [#/Vol] 10.4 10*3/uL 3.6 - 10.7 10*3/uL [facility] CBC WITH AUTO DIFFERENTIALon 05-13-2025 Basophils (Bld) [#/Vol] 0.1 10*3/uL Normal 0.0-0.2 [facility] Comment on above: Performed By: #### L [id number] ####Environment Friendly Landscape Designer: NIEVES RUIZ ([phone])[facility])[address] [place] [address] Basophils/100 WBC (Bld) 0.6 % Normal 0.0-2.0 [facility] Comment on above: Performed By: #### L [id number] ####Environment Friendly Landscape Designer: NIEVES RUIZ ([phone])[facility])[address] [place] [address] Eosinophils (Bld) [#/Vol] 0.2 10*3/uL Normal 0.0-0.5 [facility] Comment on above: Performed By: #### L [id number] ####Environment Friendly Landscape Designer: NIEVES RUIZ ([phone])[facility])[address] [place] [address] Eosinophils/100 WBC (Bld) 1.9 % Normal 0.0-6.0 [facility] Comment on above: Performed By: #### L [id number] ####Environment Friendly Landscape Designer: NIEVES RUIZ ([phone])[facility])[address] [place] [address] Erythrocyte distribution width (RBC) [Ratio] 13.3 % Normal 11.5-15.0 [facility] Comment on above: Performed By: #### L [id number] ####Environment Friendly Landscape Designer: NIEVES RUIZ ([phone])[facility])[address] [place] [address] Hematocrit (Bld) [Volume fraction] 32.9 % Low 35.0-47.[address] [facility] Comment on above: Performed By: #### L [id number] ####Environment Friendly Landscape Designer: NIEVES RUIZ ([phone])[facility])[address] [place] [address] Hemoglobin (Bld) [Mass/Vol] 10.4 g/dL Low 11.7-16.[address] [facility] Comment on above: Performed By: #### L [id number] ####Environment Friendly Landscape Designer: NIEVES RUIZ ([phone])[facility])[address] [place] [address] IMMATURE GRANS % 0.7 % Normal 0.0-2.0 [facility] Comment on above: Performed By: #### L [id number] ####Environment Friendly Landscape Designer: NIEVES RUIZ ([phone])[facility])[address] [place] [address] IMMATURE GRANS ABSOLUTE 0.1 10*3/uL High <0.[address] [facility] Comment on above: Performed By: #### L [id number] ####Environment Friendly Landscape Designer: NIEVES RUIZ ([phone])[address] Lymphocytes (Bld) [#/Vol] 0.8 10*3/uL Low 1.0-4.[address] [facility] Comment on above: Performed By: #### L [id number] ####Environment Friendly Landscape Designer: NIEVES RUIZ ([phone])[address] Lymphocytes/100 WBC (Bld) 7.7 % Low 15.0-45.[address] [facility] Comment on above: Performed By: #### L [id number] ####Environment Friendly Landscape Designer: NIEVES RUIZ ([phone])[address] MCH (RBC) [Entitic mass] 29.8 pg Normal 26.0-34.[address] [facility] Comment on above: Performed By: #### L [id number] ####Environment Friendly Landscape Designer: NIEVES RUIZ ([phone])[address] MCHC 31.6 % Normal 30.5-36.[address] [facility] Comment on above: Performed By: #### L [id number] ####Environment Friendly Landscape Designer: NIEVES RUIZ ([phone])[facility] [place] [address] MCV (RBC) [Entitic vol] 94.3 fL Normal 77.0-99.0 [facility] Comment on above: Performed By: #### L [id number] ####Environment Friendly Landscape Designer: NIEVES RUIZ ([phone])[facility] ([facility])[address] [place] [address] Monocytes (Bld) [#/Vol] 0.6 10*3/uL Normal 0.0-0.[address] [facility] Comment on above: Performed By: #### L [id number] ####Environment Friendly Landscape Designer: NIEVES RUIZ ([phone])[facility] ([facility])[address] [place] [address] Monocytes/100 WBC (Bld) 5.3 % Normal 5.0-13.0 [facility] Comment on above: Performed By: #### L [id number] ####Environment Friendly Landscape Designer: NIEVES RUIZ ([phone])[facility] ([facility])[address] [place] [address] NEUTROPHILS ABSOLUTE 8.7 10*3/uL High 1.8-7.5 [facility] Comment on above: Performed By: #### L [id number] ####Environment Friendly Landscape Designer: NIEVES RUIZ ([phone])[facility] [facility])[address] [place] [address] Neutrophils/100 WBC (Bld) 83.8 % High 38.0-82.[address] [facility] Comment on above: Performed By: #### L [id number] ####Environment Friendly Landscape Designer: NIEVES RUIZ ([phone])[facility] ([facility])[address] [place] [address] NRBC 0.0 /100 WBCs Normal 0.0-2.0 [facility] Comment on above: Performed By: #### L [id number] ####Environment Friendly Landscape Designer: NIEVES RUIZ ([phone])[facility] ([facility])[address] [place] [address] Platelet mean volume (Bld) [Entitic vol] 11.0 fL Normal 9.0-12.7 [facility] Comment on above: Performed By: #### L [id number] ####Environment Friendly Landscape Designer: NIEVES RUIZ ([phone])[facility] ([facility])[address] [place] [address] Platelets (Bld) [#/Vol] 303 10*3/uL Normal 140-440 [facility] Comment on above: Performed By: #### L [id number] ####Environment Friendly Landscape Designer: NIEVES RUIZ ([phone])[facility] ([facility])[address] [place] [address] RBC (Bld) [#/Vol] 3.49 10*6/uL Low 3.80-5.20 [facility] Comment on above: Performed By: #### L [id number] ####Environment Friendly Landscape Designer: NIEVES RUIZ ([phone])[facility] ([facility])[address] [place] [address] WBC (Bld) [#/Vol] 10.4 10*3/uL Normal 3.6-10.7 [facility] Comment on above: Performed By: #### L [id number] ####Environment Friendly Landscape Designer: NIEVES RUIZ ([id number])[facility] ([facility])[address] [place] [address] ECG 12-LEADon 05-13-2025 ECG 12-LEAD IMPRESSION: Sinus bradycardia Left ventricular hypertrophy Left anterior fascicular block Electronically Signed On 05-13-2025 17:55:20 EDT by Elva Gamboa Normal [facility] Laboratory - Chemistry and C hemistry - challengeon 05-13-2025 Glucose [Mass/Vol] 178 mg/dL High 70 - 100 mg/dL [facility] Glucose [Mass/Vol] 117 mg/dL High 70 - 100 mg/dL [facility] Glucose [Mass/Vol] 149 mg/dL High 70 - 100 mg/dL [facility] Glucose [Mass/Vol] 130 mg/dL High 70 - 100 mg/dL [facility] Laboratory - Microbiology an d Antimicrobial susceptibilityOrdered By: Berta Dorman on 05-13-2025 Bacteria identified Cx Nom (U) Multiple species present; probable contamination; repeat suggested [facility] No Panel Informationon 05-13 Interpretation and review of laboratory results Abnormal [facility] CV EPIPHANY [facility] Interpretation and review of laboratory results Abnormal [facility] Interpretation and review of laboratory results Abnormal [facility] Interpretation and review of laboratory results Abnormal [facility] No Panel InformationOrdered By: Elva Gamboa on 05-13-2025 P [place] 0 degrees [facility] Work Phone: RI Interval 70 ms [facility] Work Phone: QRS [place] -33 degrees [facility] Work Phone: QRSD Interval 110 ms [facility] Work Phone: QT Interval 460 ms [facility] Work Phone: QTC Interval 432 ms [facility] Work Phone: T Wave [place] -67 degrees [facility] Work Phone: [employer] Work Phone: Progress Noteon 05-13-2025 Progress Note Normal [facility] Progress Note Normal [facility] Vital signsOrdered By: Elva Gamboa on 05-13-2025 Heart rate 53 /min bpm [facility] Work Phone: [phone] 05-12-2025 [id number] Normal [facility] CBC W Auto Differential pane l (Bld)Ordered By: Toshia Rowland on 05-12-2025 Basophils (Bld) [#/Vol] 0 10*3/uL 0.0 - 0.2 10*3/uL [facility] Basophils/100 WBC (Bld) 0.2 % 0.0 - 2.0 % [facility] Eosinophils (Bld) [#/Vol] 0 10*3/uL 0. 0 - 0.5 10*3/uL [facility] Eosinophils/100 WBC (Bld) 0.3 % 0.0 - 6.0 % [facility] Erythrocyte distribution width (RBC) [Ratio] 13 % 11.5 - 15.0 % [facility] Hematocrit (Bld) [Volume fraction] 33.1 % Low 35.0 - 47.0 % [facility] Hemoglobin (Bld) [Mass/Vol] 11.1 g/dL Low 11.7 - 16.0 g/dL [facility] Immature granulocytes (Bld) [#/Vol] 0.1 10*3/uL High NINF - 0.1 10*3/uL [facility] Immature granulocytes/100 WBC (Bld) 0.7 % 0.0 - 2.0 % [facility] Interpretation and review of laboratory results Abnormal [facility] th Lymphocytes (Bld) [#/Vol] 0.7 10*3/uL Low 1. 0 - 4.3 10*3/uL [facility] Lymphocytes/100 WBC (Bld) 5.8 % Low 15 .0 - 45.0 % [facility] MCH (RBC) [Entitic mass] 30.5 pg 26. 0 - 34.0 pg [facility] MCHC (RBC) [Mass/Vol] 33.5 % 30.5 - 36.0 % [facility] MCV (RBC) [Entitic vol] 90.9 fL 77.0 - 99.0 fL [facility] Monocytes (Bld) [#/Vol] 0.8 10*3/uL 0.0 - 0.9 10*3/uL [facility] Monocytes/100 WBC (Bld) 6.3 % 5.0 - 13.0 % [facility] Neutrophils (Bld) [#/Vol] 11 10*3/uL High 1. 8 - 7.5 10*3/uL [facility] Neutrophils/100 WBC (Bld) 86.7 % High 38 .0 - 82.0 % [facility] Nucleated RBC/100 WBC (Bld) [Ratio] 0 % [facility] Platelet mean volume (Bld) [Entitic vol] 11.3 fL 9.0 - 12.7 fL [facility] Platelets (Bld) [#/Vol] 325 10*3/uL 140 - 440 10*3/uL [facility] RBC (Bld) [#/Vol] 3.64 10*6/uL Low 3.80 - 5.2 0 10*6/uL [facility] WBC (Bld) [#/Vol] 12.7 10*3/uL High 3.6 - 10.7 10*3/uL [facility] Comprehensive metabolic 1998 panelon 05-12-2025 Albumin [Mass/Vol] 2.1 g/dL Low 3.4 - 4.8 g/dL [facility] ALP [Catalytic activity/Vol] 68 U/L 40 - 150 U/L [facility] ALT [Catalytic activity/Vol] U/L NINF - 30 U/L [facility] Anion gap [Moles/Vol] 9 mmol/L 3 - 13 mmol/L [facility] AST [Catalytic activity/Vol] 15 U/L NINF - 34 U/L [facility] Bilirubin [Mass/Vol] 1 mg/dL NINF - 1.2 mg/dL [facility] Calcium [Mass/Vol] 8.6 mg/dL Low 8.8 - 10. 0 mg/dL [facility] Chloride [Moles/Vol] 108 mmol/L High 98 - 10 7 mmol/L [facility] CO2 [Moles/Vol] 21 mmol/L Low 23 - 31 mmol/L [facility] Creatinine [Mass/Vol] 0.92 mg/dL 0.57 - 1.11 mg/dL [facility] GFR/1.73 sq M.predicted (S/P/Bld) [Vol rate/Area] 67.1 mL/min - PINF [facility] Glucose [Mass/Vol] 176 mg/dL High 82 - 115 mg/dL [facility] Interpretation and review of laboratory results Abnormal [facility] th Potassium [Moles/Vol] 3 mmol/L Low 3.5 - 5.1 mmol/L [facility] Protein [Mass/Vol] 6.5 g/dL 6.4 - 8.3 g/dL [facility] Sodium [Moles/Vol] 138 mmol/L 136 - 145 mmol/L [facility] Urea nitrogen [Mass/Vol] 20 mg/dL 9 - 23 mg/dL [facility] Consulton 05-12-[address] [facility] Consult Normal [facility] LACTIC ACID WITH REFLEXon Lactate [Moles/Vol] 1.1 mmol/L Normal 0.5-2.2 [facility] Comment on above: Performed By: #### L [id number] ####Environment Friendly Landscape Designer: NIEVES RUIZ ([id number])[facility] ([facility])[address] [place] [address] Laboratory - Chemistry and C hemistry - challengeon 05-12-2025 Glucose [Mass/Vol] 207 mg/dL High 70 - 100 mg/dL [facility] Glucose [Mass/Vol] 243 mg/dL High 70 - 100 mg/dL [facility] Glucose [Mass/Vol] 133 mg/dL High 70 - 100 mg/dL [facility] Glucose [Mass/Vol] 146 mg/dL High 70 - 100 mg/dL [facility] Lactate [Moles/Vol] 1.1 mmol/L 0.5 - 2. 2 mmol/L [facility] Average glucose Estimated from glycated hemoglobin (Bld) [Mass/Vol] 163 mg/dL [facility] Procalcitonin [Mass/Vol] 0.49 ng/mL High ISAEL F - 0.07 ng/mL [facility] Magnesium [Mass/Vol] 2 mg/dL 1.6 - 2 .6 mg/dL [facility] Lactate [Moles/Vol] 2.1 mmol/L 0.5 - 2. 2 mmol/L [facility] Laboratory - Hematology and Cell countson 05-12-2025 HbA1c (Bld) [Mass fraction] 7.3 % [facility] Magnesium [Mass/Vol]on 05-12 Interpretation and review of laboratory results Normal [facility] No Panel Informationon 05-12 Interpretation and review of laboratory results Abnormal [facility] Interpretation and review of laboratory results Abnormal [facility] Interpretation and review of laboratory results Abnormal [facility] Interpretation and review of laboratory results Abnormal [facility] Interpretation and review of laboratory results Normal [facility] Interpretation and review of laboratory results [facility] Interpretation and review of laboratory results Normal [facility] Nursing Noteon 05-12-2025 Nursing Note Normal [facility] Procalcitonin [Mass/Vol]on 1 Interpretation and review of laboratory results Abnormal [facility] Progress Noteon 05-12-2025 Progress Note Vancomycin therapy has been discontinued by Dr. Gil on 05/12/25. Thank you for the consult. Pharmacy signing off for vancomycin dosing. Emili Lara PharmD Date: 05/12/25 Time: 1:50 PM Normal [facility] Progress Note Normal [facility] BETA HYDROXYBUTYRATEon 05-11 BETA HYDROXYBUTYRATE 9.6 mg/dL High <=2.8 [facility] Comment on above: Performed By: #### L [id number], [id number], [id number], [id number], [id number] ####Environment Friendly Landscape Designer: NIEVES RUIZ ([phone])[address] BLOOD CULTUREon 05-11-2025 Bacteria identified Cx Nom (Bld) Normal [facility] Comment on above: Performed By: #### L [id number] ####Environment Friendly Landscape Designer: NIEVES RUIZ ([phone])[facility])[address] [place] [address] Bacteria identified Cx Nom (Bld) Normal [facility] Comment on above: Performed By: #### L [id number] ####Environment Friendly Landscape Designer: NIEVES RUIZ ([phone])[address] BLOOD GAS, VENOUSon 05-11-20 AMOUNT OF OXYGEN Normal [facility] Comment on above: Result Comment: SUNG Bryan COMMENTS:Assessment of oxygenation is best done with an arterial blood gas determination. Reference ranges for pO2, bicarbonate, and base excess are for mixed venous blood. Specimens drawn from a peripheral vein will often have higher values. Performed By: #### L [id number] ####Environment Friendly Landscape Designer: NIEVES RUIZ ([phone])[address] Base excess Calc (BldV) [Moles/Vol] -0.9000 mmol/L Normal -3.0-3.0 [facility] Comment on above: Performed By: #### L [id number] ####Environment Friendly Landscape Designer: NIEVES [id number])[facility] [place] [address] [place] CO2 [Moles/Vol] 23.0 mmol/L Low 24.0-28.0 [facility] Comment on above: Performed By: #### L [id number] ####Environment Friendly Landscape Designer: NIEVES RUIZ ([phone])[facility] ([facility])[address] [place] [address] HCO3 (Bld) [Moles/Vol] 22.0 mmol/L Low 23.0-27.0 [facility] Comment on above: Performed By: #### L [id number] ####Environment Friendly Landscape Designer: NIEVES RUIZ ([phone])[facility])[address] [place] [address] Hemoglobin (Bld) [Mass/Vol] 11.5 g/dL Normal Screen only [facility] Comment on above: Performed By: #### L [id number] ####Environment Friendly Landscape Designer: NIEVES RUIZ ([phone])[facility] ([facility])[address] [place] [address] OXYGEN (MM HG) IN VENOUS BLOOD 47.3 mm Hg Normal [facility] Comment on above: Performed By: #### L [id number] ####Environment Friendly Landscape Designer: NIEVES RUIZ ([phone])[facility])[address] [place] [address] OXYGEN SATURATION (%) IN VENOUS BLOOD 83.1 % Normal [facility] Comment on above: Performed By: #### L [id number] ####Environment Friendly Landscape Designer: NIEVES RUIZ ([phone])[facility])[address] [place] [address] [place] PCO2, WAQAR 31.0 mm Hg Low 40.0-55.[address] [facility] Comment on above: Performed By: #### L [id number] ####Environment Friendly Landscape Designer: NIEVES RUIZ ([phone])[facility] ([facility])[address] [place] [address] [place] PH VENOUS 7.469 High 7.330-7.[address] [facility] Comment on above: Performed By: #### L [id number] ####Environment Friendly Landscape Designer: NIEVES RUIZ ([phone])[facility] ([facility])[address] [place] [address] SOURCE OF OXYGEN None (Room Air) [facility] Comment on above: Performed By: #### L [id number] ####Environment Friendly Landscape Designer: NIEVES RUIZ ([id number])[facility] ([facility])[address] [place] [address] CBC W Auto Differential pane l (Bld)Ordered By: Sharon Bustos on 05-11-2025 Basophils (Bld) [#/Vol] 0 10*3/uL 0.0 - 0.2 10*3/uL [facility] Basophils/100 WBC (Bld) 0.2 % 0.0 - 2.0 % [facility] Eosinophils (Bld) [#/Vol] 0 10*3/uL 0. 0 - 0.5 10*3/uL [facility] Eosinophils/100 WBC (Bld) 0 % 0.0 - 6.0 % [facility] Erythrocyte distribution width (RBC) [Ratio] 13.2 % 11.5 - 15.0 % [facility] Hematocrit (Bld) [Volume fraction] 35.2 % 35.0 - 47.0 % [facility] Hemoglobin (Bld) [Mass/Vol] 11.6 g/dL Low 11.7 - 16.0 g/dL [facility] Immature granulocytes (Bld) [#/Vol] 0.1 10*3/uL High NINF - 0.1 10*3/uL [facility] Immature granulocytes/100 WBC (Bld) 0.5 % 0.0 - 2.0 % [facility] Interpretation and review of laboratory results Abnormal [facility] Lymphocytes (Bld) [#/Vol] 0.4 10*3/uL Low 1. 0 - 4.3 10*3/uL [facility] Lymphocytes/100 WBC (Bld) 2.2 % Low 15 .0 - 45.0 % [facility] MCH (RBC) [Entitic mass] 30 pg 26. 0 - 34.0 pg [facility] MCHC (RBC) [Mass/Vol] 33 % 30.5 - 36.0 % [facility] MCV (RBC) [Entitic vol] 91 fL 77.0 - 99.0 fL [facility] Monocytes (Bld) [#/Vol] 0.7 10*3/uL 0.0 - 0.9 10*3/uL [facility] Monocytes/100 WBC (Bld) 4.4 % Low 5.0 - 13.0 % [facility] Neutrophils (Bld) [#/Vol] 15.7 10*3/uL High 1. 8 - 7.5 10*3/uL [facility] Neutrophils/100 WBC (Bld) 92.7 % High 38 .0 - 82.0 % [facility] Nucleated RBC/100 WBC (Bld) [Ratio] 0 % [facility] Platelet mean volume (Bld) [Entitic vol] 10.8 fL 9.0 - 12.7 fL [facility] Platelets (Bld) [#/Vol] 336 10*3/uL 140 - 440 10*3/uL [facility] RBC (Bld) [#/Vol] 3.87 10*6/uL 3.80 - 5.2 0 10*6/uL [facility] WBC (Bld) [#/Vol] 16.9 10*3/uL High 3.6 - 10.7 10*3/uL [facility] CBC WITH AUTO DIFFERENTIALon 05-11-2025 Basophils (Bld) [#/Vol] 0.0 10*3/uL Normal 0.0-0.[address] [facility] Comment on above: Performed By: #### L [id number] ####Environment Friendly Landscape Designer: NIEVES [id number])[facility] ([facility])[address] [place] [address] Basophils/100 WBC (Bld) 0.2 % Normal 0.0-2.0 [facility] Comment on above: Performed By: #### L [id number] ####Environment Friendly Landscape Designer: NIEVES [id number])[facility] ([facility])[address] [place] [address] Eosinophils (Bld) [#/Vol] 0.0 10*3/uL Normal 0.0-0.[address] [facility] Comment on above: Performed By: #### L [id number] ####Environment Friendly Landscape Designer: NIEVES [id number])[facility])[address] [place] [address] Eosinophils/100 WBC (Bld) 0.3 % Normal 0.0-6.[address] [facility] Comment on above: Performed By: #### L [id number] ####Environment Friendly Landscape Designer: NIEVES RUIZ ([phone])[facility])[address] [place] [address] Erythrocyte distribution width (RBC) [Ratio] 13.0 % Normal 11.5-15.[address] [facility] Comment on above: Performed By: #### L [id number] ####Environment Friendly Landscape Designer: NIEVES RUIZ ([phone])[facility])[address] [place] [address] Hematocrit (Bld) [Volume fraction] 33.1 % Low 35.0-47.[address] [facility] Comment on above: Performed By: #### L [id number] ####Environment Friendly Landscape Designer: NIEVES RUIZ ([id number])[facility])[address] [place] [address] Hemoglobin (Bld) [Mass/Vol] 11.1 g/dL Low 11.7-16.[address] [facility] Comment on above: Performed By: #### L [id number] ####Environment Friendly Landscape Designer: NIEVES RUIZ ([phone])[facility])[address] [place] [address] IMMATURE GRANS % 0.7 % Normal 0.0-2.0 [facility] Comment on above: Performed By: #### L [id number] ####Environment Friendly Landscape Designer: NIEVES RUIZ ([id number])[facility])[address] [place] [address] IMMATURE GRANS ABSOLUTE 0.1 10*3/uL High <0.[address] [facility] Comment on above: Performed By: #### L [id number] ####Environment Friendly Landscape Designer: NIEVES RUIZ ([phone])[facility])[address] [place] [address] Lymphocytes (Bld) [#/Vol] 0.7 10*3/uL Low 1.0-4.[address] [facility] Comment on above: Performed By: #### L [id number] ####Environment Friendly Landscape Designer: NIEVES RUIZ ([phone])[facility])[address] [place] [address] Lymphocytes/100 WBC (Bld) 5.8 % Low 15.0-45.[address] [facility] Comment on above: Performed By: #### L [id number] ####Environment Friendly Landscape Designer: NIEVES RUIZ ([phone])[facility])[address] [place] [address] MCH (RBC) [Entitic mass] 30.5 pg Normal 26.0-34.[address] [facility] Comment on above: Performed By: #### L [id number] ####Environment Friendly Landscape Designer: NIEVES RUIZ ([phone])[facility])[address] [place] [address] MCHC 33.5 % Normal 30.5-36.[address] [facility] Comment on above: Performed By: #### L [id number] ####Environment Friendly Landscape Designer: NIEVES RUIZ ([phone])[facility])[address] [place] [address] MCV (RBC) [Entitic vol] 90.9 fL Normal 77.0-99.0 [facility] Comment on above: Performed By: #### L [id number] ####Environment Friendly Landscape Designer: NIEVES RUIZ ([id number])[facility])[address] [place] [address] Monocytes (Bld) [#/Vol] 0.8 10*3/uL Normal 0.0-0.[address] [facility] Comment on above: Performed By: #### L [id number] ####Environment Friendly Landscape Designer: NIEVES RUIZ ([phone])[facility])[address] [place] [address] Monocytes/100 WBC (Bld) 6.3 % Normal 5.0-13.0 [facility] Comment on above: Performed By: #### L [id number] ####Environment Friendly Landscape Designer: NIEVES RUIZ ([phone])[facility] ([facility])[address] [place] [address] NEUTROPHILS ABSOLUTE 11.0 10*3/uL High 1.8-7.5 [facility] Comment on above: Performed By: #### L [id number] ####Environment Friendly Landscape Designer: NIEVES RUIZ ([phone])[facility])[address] [place] [address] Neutrophils/100 WBC (Bld) 86.7 % High 38.0-82.[address] [facility] Comment on above: Performed By: #### L [id number] ####Environment Friendly Landscape Designer: NIEVES RUIZ ([id number])[facility])[address] [place] [address] NRBC 0.0 /100 WBCs Normal 0.0-2.0 [facility] Comment on above: Performed By: #### L [id number] ####Environment Friendly Landscape Designer: NIEVES RUIZ ([phone])[facility] ([facility])[address] [place] [address] Platelet mean volume (Bld) [Entitic vol] 11.3 fL Normal 9.0-12.[address] [facility] Comment on above: Performed By: #### L [id number] ####Environment Friendly Landscape Designer: NIEVES RUIZ ([phone])[facility])[address] [place] [address] [place] Platelets (Bld) [#/Vol] 325 10*3/uL Normal 140-[address] [facility] Comment on above: Performed By: #### L [id number] ####Environment Friendly Landscape Designer: NIEVES RUIZ ([phone])[facility])[address] [place] [address] RBC (Bld) [#/Vol] 3.64 10*6/uL Low 3.80-5.[address] [facility] Comment on above: Performed By: #### L [id number] ####Environment Friendly Landscape Designer: NIEVES RUIZ ([id number])[facility])[address] [place] [address] WBC (Bld) [#/Vol] 12.7 10*3/uL High 3.6-10.[address] [facility] Comment on above: Performed By: #### L [id number] ####Environment Friendly Landscape Designer: NIEVES RUIZ ([phone])[facility])[address] [place] [address] Basophils (Bld) [#/Vol] 0.0 10*3/uL Normal 0.0-0.[address] [facility] Comment on above: Performed By: #### L [id number] ####Environment Friendly Landscape Designer: NIEVES RUIZ ([phone])[facility])[address] [place] [address] Basophils/100 WBC (Bld) 0.2 % Normal 0.0-2.0 [facility] Comment on above: Performed By: #### L [id number] ####Environment Friendly Landscape Designer: NIEVES RUIZ ([id number])[facility] ([facility])[address] [place] [address] Eosinophils (Bld) [#/Vol] 0.0 10*3/uL Normal 0.0-0.[address] [facility] Comment on above: Performed By: #### L [id number] ####Environment Friendly Landscape Designer: NIEVES RUIZ ([phone])[facility])[address] [place] [address] Eosinophils/100 WBC (Bld) 0.0 % Normal 0.0-6.[address] [facility] Comment on above: Performed By: #### L [id number] ####Environment Friendly Landscape Designer: NIEVES RUIZ ([id number])[facility])[address] [place] [address] Erythrocyte distribution width (RBC) [Ratio] 13.2 % Normal 11.5-15.[address] [facility] Comment on above: Performed By: #### L [id number] ####Environment Friendly Landscape Designer: NIEVES RUIZ ([phone])[facility] [address] Hematocrit (Bld) [Volume fraction] 35.2 % Normal 35.0-47.[address] [facility] Comment on above: Performed By: #### L [id number] ####Environment Friendly Landscape Designer: NIEVES RUIZ ([phone])[facility])[address] [place] [address] Hemoglobin (Bld) [Mass/Vol] 11.6 g/dL Low 11.7-16.[address] [facility] Comment on above: Performed By: #### L [id number] ####Environment Friendly Landscape Designer: NIEVES RUIZ ([phone])[facility])[address] [place] [address] IMMATURE GRANS % 0.5 % Normal 0.0-2.0 [facility] Comment on above: Performed By: #### L [id number] ####Environment Friendly Landscape Designer: NIEVES RUIZ ([phone])[facility])[address] [place] [address] IMMATURE GRANS ABSOLUTE 0.1 10*3/uL High <0.[address] [facility] Comment on above: Performed By: #### L [id number] ####Environment Friendly Landscape Designer: NIEVES RUIZ ([phone])[facility])[address] [place] [address] Lymphocytes (Bld) [#/Vol] 0.4 10*3/uL Low 1.0-4.[address] [facility] Comment on above: Performed By: #### L [id number] ####Environment Friendly Landscape Designer: NIEVES RUIZ ([phone])[facility])[address] [place] [address] Lymphocytes/100 WBC (Bld) 2.2 % Low 15.0-45.[address] [facility] Comment on above: Performed By: #### L [id number] ####Environment Friendly Landscape Designer: NIEVES RUIZ ([phone])[facility])[address] [place] [address] MCH (RBC) [Entitic mass] 30.0 pg Normal 26.0-34.[address] [facility] Comment on above: Performed By: #### L [id number] ####Environment Friendly Landscape Designer: NIEVES RUIZ ([phone])[facility])[address] [place] [address] MCHC 33.0 % Normal 30.5-36.[address] [facility] Comment on above: Performed By: #### L [id number] ####Environment Friendly Landscape Designer: NEIVES RUIZ ([phone])[facility])[address] [place] [address] MCV (RBC) [Entitic vol] 91.0 fL Normal 77.0-99.0 [facility] Comment on above: Performed By: #### L [id number] ####Environment Friendly Landscape Designer: NIEVES RUIZ ([phone])[facility])[address] [place] [address] Monocytes (Bld) [#/Vol] 0.7 10*3/uL Normal 0.0-0.[address] [facility] Comment on above: Performed By: #### L [id number] ####Environment Friendly Landscape Designer: NIEVES RUIZ ([phone])[facility])[address] [place] [address] Monocytes/100 WBC (Bld) 4.4 % Low 5.0-13.0 [facility] Comment on above: Performed By: #### L [id number] ####Environment Friendly Landscape Designer: NIEVES RUIZ ([phone])[facility])[address] [place] [address] NEUTROPHILS ABSOLUTE 15.7 10*3/uL High 1.8-7.5 [facility] Comment on above: Performed By: #### L [id number] ####Environment Friendly Landscape Designer: NIEVES RUIZ ([phone])[facility])[address] [place] [address] Neutrophils/100 WBC (Bld) 92.7 % High 38.0-82.[address] [facility] Comment on above: Performed By: #### L [id number] ####Environment Friendly Landscape Designer: NIEVES [phone])[facility] ([facility])[address] [place] [address] NRBC 0.0 /100 WBCs Normal 0.0-2.0 [facility] Comment on above: Performed By: #### L [id number] ####Environment Friendly Landscape Designer: NIEVES RUIZ ([phone])[facility] ([facility])[address] [place] [address] Platelet mean volume (Bld) [Entitic vol] 10.8 fL Normal 9.0-12.[address] [facility] Comment on above: Performed By: #### L [id number] ####Environment Friendly Landscape Designer: NIEVES RUIZ ([phone])[facility] ([facility])[address] [place] [address] Platelets (Bld) [#/Vol] 336 10*3/uL Normal 140-[address] [facility] Comment on above: Performed By: #### L [id number] ####Environment Friendly Landscape Designer: NIEVES RUIZ ([phone])[facility] ([facility])[address] [place] [address] RBC (Bld) [#/Vol] 3.87 10*6/uL Normal 3.80-5.[address] [facility] Comment on above: Performed By: #### L [id number] ####Environment Friendly Landscape Designer: NIEVES RUIZ ([phone])[facility])[address] [place] [address] WBC (Bld) [#/Vol] 16.9 10*3/uL High 3.6-10.[address] [facility] Comment on above: Performed By: #### L [id number] ####Environment Friendly Landscape Designer: NIEVES RUIZ ([phone])[facility])[address] [place] [address] CKon 05-11-2025 CK [Catalytic activity/Vol] 47 U/L Normal 30-[address] [facility] Comment on above: Performed By: #### L [id number], LAB62, [id number], [id number], LAB17 ####Environment Friendly Landscape Designer: NIEVES RUIZ ([phone])[facility] ([facility])[address] [place] [address] CK [Catalytic activity/Vol]o n 05-11-2025 Interpretation and review of laboratory results Normal [facility] COMPLETE URINALYSIS WITH REF RONAN TO CULTUREon 05-11-2025 BACTERIA (#/HPF) IN URINE Many Abnormal Negative [facility] Comment on above: Performed By: #### L [id number] ####Environment Friendly Landscape Designer: NIEVES RUIZ ([phone])[facility] ([facility])[address] [place] [address] BILIRUBIN, TOTAL PRESENCE IN URINE Negative Normal Negative [facility] Comment on above: Performed By: #### L [id number] ####Environment Friendly Landscape Designer: NIEVES RUIZ ([phone])[facility] ([facility])[address] [place] [address] Clarity (U) Extra Turbid Abnormal Clear [facility] Comment on above: Performed By: #### L [id number] ####Environment Friendly Landscape Designer: NIEVES RUIZ ([phone])[facility] ([facility])[address] [place] [address] Color (U) Yellow Normal Lt. Yellow [facility] Comment on above: Performed By: #### L [id number] ####Environment Friendly Landscape Designer: NIEVES RUIZ ([id number])[facility] ([facility])[address] [place] [address] Glucose (U) [Mass/Vol] 500 mg/dL Abnormal Nallely l (<70) [facility] Comment on above: Performed By: #### L [id number] ####Environment Friendly Landscape Designer: NIEVES RUIZ ([phone])[facility] ([facility])[address] [place] [address] HEMOGLOBIN PRESENCE IN URINE Negative Normal Negative [facility] Comment on above: Performed By: #### L [id number] ####Environment Friendly Landscape Designer: NIEVES RUIZ ([phone])[facility] ([facility])[address] [place] [address] [place] HYALINE CASTS (#/LPF) IN URINE SEDIMENT BY MICROSCOPY Negative Normal Negative [facility] Comment on above: Performed By: #### L [id number] ####Environment Friendly Landscape Designer: NIEVES RUIZ ([phone])[facility])[address] [place] [address] Ketones Ql (U) 10 mg/dL Abnormal Negative [facility] Comment on above: Performed By: #### L [id number] ####Environment Friendly Landscape Designer: NIEVES RUIZ ([phone])[facility] ([facility])[address] [place] [address] LEUKOCYTE ESTERASE PRESENCE IN URINE BY TEST STRIP 500 Rad/uL Abnormal Negative [facility] Comment on above: Performed By: #### L [id number] ####Environment Friendly Landscape Designer: NIEVES RUIZ ([phone])[facility] ([facility])[address] [place] [address] [place] MUCUS (#/LPF) IN URINE SEDIMENT Few Normal Negative [facility] Comment on above: Performed By: #### L [id number] ####Environment Friendly Landscape Designer: NIEVES RUIZ ([phone])[facility] ([facility])[address] [place] [address] NITRITE PRESENCE IN URINE Negative Normal Negative [facility] Comment on above: Performed By: #### L [id number] ####Environment Friendly Landscape Designer: NIEVES RUIZ ([phone])[facility] ([facility])[address] [place] [address] pH (U) 8.0 [pH] Normal 5.0-8.[address] [facility] Comment on above: Performed By: #### L [id number] ####Environment Friendly Landscape Designer: NIEVES RUIZ ([phone])[facility] ([facility])[address] [place] [address] [place] Protein (U) [Mass/Vol] 300 mg/dL Abnormal Negative [facility] Comment on above: Performed By: #### L [id number] ####Environment Friendly Landscape Designer: NIEVES RUIZ ([phone])[facility])[address] RBC (#/HPF) IN URINE SEDIMENT 26-50 Abnormal 0-[address] [facility] Comment on above: Performed By: #### L [id number] ####Environment Friendly Landscape Designer: NIEVES RUIZ ([phone])[facility])[address] [place] [address] Specific gravity (U) [Rel density] 1.020 Normal 1.005-1.[address] [facility] Comment on above: Result Comment: SUNG Bryan COMMENTS:This specimen has been reflexed to urine culture. Performed By: #### L [id number] ####Environment Friendly Landscape Designer: NIEVES RUIZ ([phone])[facility])[address] [place] [address] SQUAMOUS EPITHELIAL CELLS (#/HPF) IN URINE SEDIMENT 0-2 Normal 3-[address] [facility] Comment on above: Performed By: #### L [id number] ####Environment Friendly Landscape Designer: NIEVES RUIZ ([phone])[facility])[address] [place] [address] UROBILINOGEN (MG/DL) IN URINE 3 mg/dL Abnormal Normal (0-1) [facility] Comment on above: Performed By: #### L [id number] ####Environment Friendly Landscape Designer: NIEVES RUIZ ([phone])[facility])[address] [place] [address] WBC (LEUKOCYTE) (#/HPF) IN URINE SEDIMENT >100 Abnormal 0-[address] [facility] Comment on above: Performed By: #### L [id number] ####Environment Friendly Landscape Designer: NIEVES RUIZ ([id number])[facility])[address] [place] [address] COMPREHENSIVE METABOLIC PANE Derek 05-11-2025 Albumin [Mass/Vol] 2.1 g/dL Low 3.4-4.[address] [facility] Comment on above: Performed By: #### L [id number], LAB17, [id number] ####Environment Friendly Landscape Designer: NIEVES RUIZ ([phone])[facility])[address] [place] [address] ALP [Catalytic activity/Vol] 68 U/L Normal 40-[address] [facility] Comment on above: Performed By: #### Wayne CAICEDO, LAB17, [id number] ####Environment Friendly Landscape Designer: NIEVES RUIZ ([phone])[facility] ([facility])[address] [place] [address] ALT [Catalytic activity/Vol] U/L Normal <[address] [facility] Comment on above: Performed By: #### Wayne CAICEDO, LAB17, [id number] ####Environment Friendly Landscape Designer: NIEVES RUIZ ([phone])[facility] ([facility])[address] [place] [address] Anion gap [Moles/Vol] 9 mmol/L Normal 3-13 [facility] Comment on above: Performed By: #### Wayne CAICEDO, LAB17, [id number] ####Environment Friendly Landscape Designer: NIEVES RUIZ ([phone])[facility] ([facility])[address] [place] [address] AST [Catalytic activity/Vol] 15 U/L Normal <[address] [facility] Comment on above: Performed By: #### Wayne CAICEDO, LAB17, [id number] ####Environment Friendly Landscape Designer: NIEVES RUIZ ([phone])[facility] ([facility])[address] [place] [address] Bilirubin [Mass/Vol] 1.0 mg/dL Normal <1.2 [facility] Comment on above: Performed By: #### Wayne CAICEDO, LAB17, [id number] ####Environment Friendly Landscape Designer: NIEVES RUIZ ([phone])[facility])[address] [place] [address] Calcium [Mass/Vol] 8.6 mg/dL Low 8.8-10.[address] [facility] Comment on above: Performed By: #### Wayne HERNANDEZ21, LAB17, [id number] ####Environment Friendly Landscape Designer: NIEVES RUIZ ([phone])[facility] ([facility])[address] [place] [address] Chloride [Moles/Vol] 108 mmol/L High 98-107 [facility] Comment on above: Performed By: #### L [id number], LAB17, [id number] ####Environment Friendly Landscape Designer: NIEVES RUIZ ([phone])[facility])[address] [place] [address] CO2 [Moles/Vol] 21 mmol/L Low 23-31 [facility] Comment on above: Performed By: #### L [id number], LAB17, [id number] ####Environment Friendly Landscape Designer: NIEVES RUIZ ([phone])[facility])[address] [place] [address] Creatinine [Mass/Vol] 0.92 mg/dL Normal 0.57-1.11 [facility] Comment on above: Performed By: #### Wayne HERNANDEZ21, LAB17, [id number] ####Environment Friendly Landscape Designer: NIEVES RUIZ ([phone])[facility])[address] [place] [address] GLOMERULAR FILTRATION RATE ML/MIN/1.73 SQ M.PREDICTED 67.1 mL/min/1.73m*2 Normal >60.0 [facility] Comment on above: Result Comment: Calc ulation based on the Chronic Kidney Disease Epidemiology Collaboration (CKD-EPI) equation refit without adjustment for race Performed By: #### L [id number], LAB17, [id number] ####Environment Friendly Landscape Designer: NIEVES RUIZ ([phone])[facility])[address] [place] [address] Glucose [Mass/Vol] 176 mg/dL High 82-115 [facility] Comment on above: Performed By: #### L [id number], LAB17, [id number] ####Environment Friendly Landscape Designer: NIEVES RUIZ ([phone])[facility])[address] [place] [address] Potassium [Moles/Vol] 3.0 mmol/L Low 3.5-5.1 [facility] Comment on above: Result Comment: [facility] potassium values may be up to 0.5 mmol/L lower than serum values. Performed By: #### L [id number], LAB17, [id number] ####Environment Friendly Landscape Designer: NIEVES RUIZ ([phone])[facility] ([facility])[address] [place] [address] Protein [Mass/Vol] 6.5 g/dL Normal 6.4-8.[address] [facility] Comment on above: Performed By: #### L [id number], LAB17, [id number] ####Environment Friendly Landscape Designer: NIEVES RUIZ ([phone])[facility] ([facility])[address] [place] [address] Sodium [Moles/Vol] 138 mmol/L Normal 136-[address] [facility] Comment on above: Performed By: #### L [id number], LAB17, [id number] ####Environment Friendly Landscape Designer: NIEVES RUIZ ([phone])[facility])[address] [place] [address] Urea nitrogen [Mass/Vol] 20 mg/dL Normal 9-[address] [facility] Comment on above: Performed By: #### L [id number], LAB17, [id number] ####Environment Friendly Landscape Designer: NIEVES RUIZ ([phone])[facility] ([facility])[address] [place] [address] Albumin [Mass/Vol] 2.2 g/dL Low 3.4-4.[address] [facility] Comment on above: Performed By: #### L [id number], LAB62, ZWO765, QBQ712, LAB17 ####Environment Friendly Landscape Designer: NIEVES RUIZ ([phone])[facility] ([facility])[address] [place] [address] ALP [Catalytic activity/Vol] 77 U/L Normal 40-[address] [facility] Comment on above: Performed By: #### L [id number], LAB62, KHW410, KOY988, LAB17 ####Environment Friendly Landscape Designer: NIEVES RUIZ ([phone])[facility])[address] [place] [address] ALT [Catalytic activity/Vol] U/L Normal <[address] [facility] Comment on above: Performed By: #### L [id number], LAB62, FCB732, PBY280, LAB17 ####Environment Friendly Landscape Designer: NIEVES RUIZ ([phone])[facility] ([facility])[address] [place] [address] Anion gap [Moles/Vol] 14 mmol/L High 3-13 [facility] Comment on above: Performed By: #### L [id number], LAB62, CRV921, OPQ118, LAB17 ####Environment Friendly Landscape Designer: NIEVES RUIZ ([phone])[facility] ([facility])[address] [place] [address] AST [Catalytic activity/Vol] 16 U/L Normal <[address] [facility] Comment on above: Performed By: #### L [id number], LAB62, MFQ736, LWW477, LAB17 ####Environment Friendly Landscape Designer: NIEVES RUIZ ([phone])[facility] ([facility])[address] [place] [address] Bilirubin [Mass/Vol] 1.3 mg/dL High <1.2 [facility] Comment on above: Performed By: #### L [id number], LAB62, LMT521, OMJ481, LAB17 ####Environment Friendly Landscape Designer: NIEVES RUIZ ([phone])[facility] ([facility])[address] [place] [address] Calcium [Mass/Vol] 8.5 mg/dL Low 8.8-10.[address] [facility] Comment on above: Performed By: #### L [id number], LAB62, HDU299, EFH282, LAB17 ####Environment Friendly Landscape Designer: NIEVES RUIZ ([phone])[facility] ([facility])[address] [place] [address] [place] Chloride [Moles/Vol] 103 mmol/L Normal 98-107 [facility] Comment on above: Performed By: #### L [id number], LAB62, IFC587, GYV008, LAB17 ####Environment Friendly Landscape Designer: NIEVES RUIZ ([phone])[facility] ([facility])[address] [place] [address] [place] CO2 [Moles/Vol] 18 mmol/L Low 23-31 [facility] Comment on above: Performed By: #### L [id number], LAB62, ILX784, LKO977, LAB17 ####Environment Friendly Landscape Designer: NIEVES RUIZ ([phone])[facility])[address] [place] [address] Creatinine [Mass/Vol] 1.16 mg/dL High 0.57-1.11 [facility] Comment on above: Performed By: #### L [id number], LAB62, LXI629, JNT346, LAB17 ####Environment Friendly Landscape Designer: NIEVES RUIZ ([phone])[facility])[address] [place] [address] GLOMERULAR FILTRATION RATE ML/MIN/1.73 SQ M.PREDICTED 50.8 mL/min/1.73m*2 Low >60.0 [facility] Comment on above: Result Comment: Calc ulation based on the Chronic Kidney Disease Epidemiology Collaboration (CKD-EPI) equation refit without adjustment for race Performed By: #### L [id number], LAB62, OVT359, BIX815, LAB17 ####Environment Friendly Landscape Designer: NIEVES RUIZ ([phone])[facility])[address] [place] [address] Glucose [Mass/Vol] 399 mg/dL High 82-115 [facility] Comment on above: Performed By: #### L [id number], LAB62, SXQ724, EHH701, LAB17 ####Environment Friendly Landscape Designer: NIEVES RUIZ ([phone])[facility])[address] [place] [address] Potassium [Moles/Vol] 3.4 mmol/L Low 3.5-5.1 [facility] Comment on above: Result Comment: [facility] potassium values may be up to 0.5 mmol/L lower than serum values. Performed By: #### L [id number], LAB62, GDS111, JWQ958, LAB17 ####Environment Friendly Landscape Designer: NIEVES RUIZ ([phone])[facility])[address] [place] [address] Protein [Mass/Vol] 6.8 g/dL Normal 6.4-8.3 [facility] Comment on above: Performed By: #### L [id number], LAB62, NMF218, MPR970, LAB17 ####Environment Friendly Landscape Designer: NIEVES RUIZ ([phone])[facility] ([facility])[address] [place] [address] Sodium [Moles/Vol] 135 mmol/L Low 136-145 [facility] Comment on above: Performed By: #### L [id number], LAB62, XGB716, KSE301, LAB17 ####Environment Friendly Landscape Designer: NIEVES RUIZ ([phone])[facility] ([facility])[address] [place] [address] Urea nitrogen [Mass/Vol] 21 mg/dL Normal 9-23 [facility] Comment on above: Performed By: #### L [id number], LAB62, KDW753, VGX869, LAB17 ####Environment Friendly Landscape Designer: NIEVES RUIZ ([phone])[facility] ([facility])[address] [place] [address] Comprehensive metabolic 1998 panelon 05-11-2025 Albumin [Mass/Vol] 2.2 g/dL Low 3.4 - 4.8 g/dL [facility] ALP [Catalytic activity/Vol] 77 U/L 40 - 150 U/L [facility] ALT [Catalytic activity/Vol] U/L NINF - 30 U/L [facility] Anion gap [Moles/Vol] 14 mmol/L High 3 - 13 mmol/L [facility] AST [Catalytic activity/Vol] 16 U/L NINF - 34 U/L [facility] Bilirubin [Mass/Vol] 1.3 mg/dL High NINF - 1.2 mg/dL [facility] Calcium [Mass/Vol] 8.5 mg/dL Low 8.8 - 10. 0 mg/dL [facility] Chloride [Moles/Vol] 103 mmol/L 98 - 10 7 mmol/L [facility] CO2 [Moles/Vol] 18 mmol/L Low 23 - 31 mmol/L [facility] Creatinine [Mass/Vol] 1.16 mg/dL High 0.57 - 1.11 mg/dL [facility] GFR/1.73 sq M.predicted (S/P/Bld) [Vol rate/Area] 50.8 mL/min Low - PINF [facility] Glucose [Mass/Vol] 399 mg/dL High 82 - 115 mg/dL [facility] Interpretation and review of laboratory results Abnormal [facility] Potassium [Moles/Vol] 3.4 mmol/L Low 3.5 - 5.1 mmol/L [facility] Protein [Mass/Vol] 6.8 g/dL 6.4 - 8.3 g/dL [facility] Sodium [Moles/Vol] 135 mmol/L Low 136 - 145 mmol/L [facility] Urea nitrogen [Mass/Vol] 21 mg/dL 9 - 23 mg/dL [facility] ED Provider Noteon ED Provider Note Normal [facility] HEMOGLOBIN A1Con 05-11-2025 Glucose [Mass/Vol] 163 mg/dL Normal [facility] Comment on above: Result Comment: SUNG Bryan COMMENTS:If not done within the last 3 dnoKtA3s values of 5.7-6.4 percent indicate an increased risk for developing diabetes mellitus. HbA1c values greater than or equal to 6.5 percent are diagnostic of diabetes mellitus. For diagnosis of diabetes in individuals without unequivocal hyperglycemia, results should be confirmed by repeat testing. Performed By: #### L AB90 ####[employer] Landscape Designer: NIEVES RUIZ ([phone])[address] HEMOGLOBIN A1C 7.3 %HbA1C High <5.7 [facility] Comment on above: Result Comment: Norm al less than 5.7%Prediabetes 5.7% to 6.4%Diabetes 6.5% or higher--HgbA1C levels may not be accurate in patients who have renal disease, received recent blood transfusions, are anemic, or who have dyshemoglobinemia. Performed By: #### L AB90 ####Environment Friendly Landscape Designer: NIEVES RUIZ ([phone])[facility])[address] [place] [address] LACTIC ACID WITH REFLEXon Lactate [Moles/Vol] 2.1 mmol/L Normal 0.5-2.2 [facility] Comment on above: Performed By: #### L [id number] ####Environment Friendly Landscape Designer: NIEVES RUIZ ([phone])[facility] ([facility])[address] [place] [address] Lactate [Moles/Vol] 3.1 mmol/L High 0.5-2.2 [facility] Comment on above: Performed By: #### L [id number] ####Environment Friendly Landscape Designer: NIEVES RUIZ ([phone])[facility] ([facility])[address] [place] [address] Laboratory - Chemistry and C hemistry - challengeon 05-11-2025 Glucose [Mass/Vol] 176 mg/dL High 70 - 100 mg/dL [facility] CK [Catalytic activity/Vol] 47 U/L 30 - 185 U/L [facility] Glucose [Mass/Vol] 273 mg/dL High 70 - 100 mg/dL [facility] Magnesium [Mass/Vol] 1.4 mg/dL Low 1.6 - 2 .6 mg/dL [facility] Beta hydroxybutyrate [Mass/Vol] 9.6 mg/dL High NINF - 2.8 mg/dL [facility] Lactate [Moles/Vol] 3.1 mmol/L High 0.5 - 2. 2 mmol/L [facility] Laboratory - Chemistry and C hemistry - challengeOrdered By: Ebony Thompson on 05-11-2025 Base excess Calc (BldV) [Moles/Vol] -0.9000 mmol/L -3.0 - 3.0 mmol/L [facility] CO2 (BldV) [Partial pressure] 31 mm[Hg] Low [facility] CO2 [Moles/Vol] 23 mmol/L Low 24.0 - 28.0 mmol/L [facility] HCO3 (Bld) [Moles/Vol] 22 mmol/L Low 23.0 - 27.0 mmol/L [facility] Oxygen (BldV) [Partial pressure] 47.3 mm[Hg] mm Hg [facility] pH (BldV) 7.469 [pH] High 7.330 - 7.430 [facility] Laboratory - Hematology and Cell countsOrdered By: Ebony Thompson on 05-11-2025 Hemoglobin (Bld) [Mass/Vol] 11.5 g/dL 7.0 g/dl [facility] MAGNESIUMon 05-11-2025 Magnesium [Mass/Vol] 2.0 mg/dL Normal 1.6-2.6 [facility] Comment on above: Result Comment: SUNG R COMMENTS:Higher values can be expected in females during menses. Performed By: #### L [id number], [id number], [id number] ####Environment Friendly Landscape Designer: NIEVES RUIZ ([phone])[facility])[address] [place] [address] Magnesium [Mass/Vol] 1.4 mg/dL Low 1.6-2.6 [facility] Comment on above: Result Comment: ESEE R COMMENTS:Higher values can be expected in females during menses. Performed By: #### L [id number], LAB62, [id number], [id number], LAB17 ####Environment Friendly Landscape Designer: NIEVES RUIZ ([phone])[facility])[address] [place] [address] Magnesium [Mass/Vol]on 05-11 Interpretation and review of laboratory results Abnormal [facility] No Panel Informationon 05-11 Interpretation and review of laboratory results Abnormal [facility] Extra Tube Hold for add-ons. [facility] Interpretation and review of laboratory results Abnormal [facility] Interpretation and review of laboratory results Abnormal [facility] Interpretation and review of laboratory results Abnormal [facility] No Panel InformationOrdered By: Ebony Thompson on 05-11-2025 Amount Of Oxygen [facility] Interpretation and review of laboratory results Abnormal [facility] Source Of Oxygen None (Room Air) [facility] PHOSPHORUSon 05-11-2025 Phosphate [Mass/Vol] 2.1 mg/dL Low 2.3-4.7 [facility] Comment on above: Performed By: #### L [id number], LAB62, [id number], [id number], LAB17 ####Environment Friendly Landscape Designer: NIEVES RUIZ ([phone])[facility])[address] [place] [address] PROCALCITONIN TESTon 025 PROCALCITONIN 0.49 ng/mL High <0.07 [facility] Comment on above: Result Comment: SUNG R COMMENTS:PCT <0.50 = Low risk of severe sepsis and/or septic shock.PCT >2.00 = High risk of severe sepsis and/or septic shock. Performed By: #### L [id number], [id number], [id number] ####Environment Friendly Landscape Designer: NIEVES RUIZ ([phone])[facility])[address] [place] [address] Phosphate [Moles/Vol]on 04-23 Interpretation and review of laboratory results Abnormal [facility] Phosphate [Mass/Vol] 2.1 mg/dL Low 2.3 - 4 .7 mg/dL [facility] URINE CULTUREon 05-11-2025 Bacteria identified Cx Nom (U) Normal [facility] Comment on above: Performed By: #### L [id number] ####Environment Friendly Landscape Designer: NIEVES RUIZ ([phone])[facility] ([facility])[address] [place] [address] Urinalysis complete panel (U )Ordered By: Carol Ann Gore on 05-11-2025 Bacteria LM.HPF (Urine sed) [#/Area] Many Abnormal Negative /HPF [facility] Bilirubin Ql (U) Negative Negative mg/dL [facility] Clarity (U) Extra Turbid Abnormal Clear [facility] Color (U) Yellow Lt. Yellow [facility] Epithelial cells.squamous LM.HPF (Urine sed) [#/Area] 0-2 [facility] Glucose Ql (U) 500 mg/dL Abnormal Normal (<70) [facility] Hemoglobin Ql (U) Negative Negative mg/dL [facility] Hyaline casts Auto (Urine sed) [#/Area] Negative Negative /LPF [facility] Interpretation and review of laboratory results Abnormal [facility] Ketones (U) [Mass/Vol] 10 mg/dL Abnormal Negative [facility] Leukocyte esterase Test strip Ql (U) 500 Abnormal Negative Rad/uL [facility] Mucus LM.HPF (Urine sed) [#/Area] Few Negative /LPF [facility] Nitrite Ql (U) Negative Negative [facility] pH (U) 8.0 [pH] 5.0 - 8.0 pH [facility] Protein (U) [Mass/Vol] 300 mg/dL Abnormal Negative [facility] RBC LM.HPF (Urine sed) [#/Area] 26-50 Abnormal [facility] Specific gravity (U) [Rel density] 1.02 1.005 - 1.030 [facility] Urobilinogen (U) [Mass/Vol] 3 mg/dL Abnormal Normal (0-1) [facility] WBC LM.HPF (Urine sed) [#/Area] /[HPF] Abnormal [facility] Vital signsOrdered By: Ebony Thompson on 05-11-2025 Oxygen saturation in Venous blood 83.1 % [address] 01-20-2025 36 Faxed to PCP office. Normal [facility] 36on 01-19-2025 36 Cancelled appointments. Normal [facility] [address] 01-14-2025 36 Request for refill received from pharmacy Last appointment: 11/25/2024 Next appointment: 01/26/2025 Pharmacy confirmed: [x] Yes [] No Normal [place] [address] 01-03-2025 36 Patient called with negative PET scan. With this and negative biopsy unlikely recurrent endometrial cancer. Will send to her primary care physician, possible pulmonary consult. Normal [facility] PET+CT Bone from skull base to mid-thigh [...] Signed Date/Time: 2025 4:43 PM [facility] [employer] [facility] Patient Name: DAMEON POTTER : 1955 [...] convincing malignant appearing increased activity within bone. [facility] Jorge Alberto Mathews MD - [...] Electronically Signed Date/Time: 2025 4:43 PM EDT [facility] Radiology Study observation (narrative) [facility] PET+CT Bone from skull base to mid-thigh W [id number]-[id number] IVOrdered By: Jorge Alberto Mathews on 2025 [facility] Work Phone: 36on 01-01-2025 36 Normal [facility] 36on 12-23-2024 36 Normal [facility] [address] bx., will scheudle PET Normal [facility] CBC (HEMOGRAM)on 12-22-2024 Erythrocyte distribution width (RBC) [Ratio] 15.1 % High 11.5-15.0 [facility] Comment on above: Performed By: #### L [id number] ####Environment Friendly Landscape Designer: NIEVES RUIZ ([phone])[address] Hematocrit (Bld) [Volume fraction] 33.4 % Low 35.0-47.0 [facility] Comment on above: Performed By: #### L [id number] ####Environment Friendly Landscape Designer: NIEVES [id number])[address] Hemoglobin (Bld) [Mass/Vol] 11.1 g/dL Low 11.7-16.0 [facility] Comment on above: Performed By: #### L [id number] ####Environment Friendly Landscape Designer: NIEVES [id number])[facility] ([facility])[address] [place] [address] MCH (RBC) [Entitic mass] 29.4 pg Normal 26.0-34.[address] [facility] Comment on above: Performed By: #### L [id number] ####Environment Friendly Landscape Designer: NIEVES RUIZ ([id number])[facility] ([facility])[address] [place] [address] MCHC 33.2 % Normal 30.5-36.[address] [facility] Comment on above: Performed By: #### L [id number] ####Environment Friendly Landscape Designer: NIEVES RUIZ ([id number])[facility] ([facility])[address] [place] [address] MCV (RBC) [Entitic vol] 88.6 fL Normal 77.0-99.0 [facility] Comment on above: Performed By: #### L [id number] ####Environment Friendly Landscape Designer: NIEVES RUIZ ([phone])[facility] ([facility])[address] [place] [address] Platelet mean volume (Bld) [Entitic vol] 12.2 fL Normal 9.0-12.[address] [facility] Comment on above: Performed By: #### L [id number] ####Environment Friendly Landscape Designer: NIEVES RUIZ ([phone])[facility] ([facility])[address] [place] [address] Platelets (Bld) [#/Vol] 219 10*3/uL Normal 140-[address] [facility] Comment on above: Performed By: #### L [id number] ####Environment Friendly Landscape Designer: NIEVES RUIZ ([id number])[facility] ([facility])[address] [place] [address] RBC (Bld) [#/Vol] 3.77 10*6/uL Low 3.80-5.[address] [facility] Comment on above: Performed By: #### L [id number] ####Environment Friendly Landscape Designer: NIEVES RUIZ ([id number])[facility] ([facility])[address] [place] [address] WBC (Bld) [#/Vol] 6.0 10*3/uL Normal 3.6-10.7 [facility] Comment on above: Performed By: #### L [id number] ####Environment Friendly Landscape Designer: INEVES RUIZ ([id number])[facility] ([facility] CBC panel Auto (Bld)on 12-22 Erythrocyte distribution width (RBC) [Ratio] 15.1 % High 11.5 - 15.0 % [facility] Hematocrit (Bld) [Volume fraction] 33.4 % Low 35.0 - 47.0 % [facility] Hemoglobin (Bld) [Mass/Vol] 11.1 g/dL Low 11.7 - 16.0 g/dL [facility] Interpretation and review of laboratory results Abnormal [facility] MCH (RBC) [Entitic mass] 29.4 pg 26. 0 - 34.0 pg [facility] MCHC (RBC) [Mass/Vol] 33.2 % 30.5 - 36.0 % [facility] MCV (RBC) [Entitic vol] 88.6 fL 77.0 - 99.0 fL [facility] Platelet mean volume (Bld) [Entitic vol] 12.2 fL 9.0 - 12.7 fL [facility] Platelets (Bld) [#/Vol] 219 10*3/uL 140 - 440 10*3/uL [facility] RBC (Bld) [#/Vol] 3.77 10*6/uL Low 3.80 - 5.2 0 10*6/uL [facility] WBC (Bld) [#/Vol] 6 10*3/uL 3.6 - 10.7 10*3/uL [facility] CT GUIDED BIOPSY ABDOMEN OR RETROPERITONEUMon 12-22-2024 CT GUIDED BIOPSY ABDOMEN OR RETROPERITONEUM Normal [facility] CT Guidance for biopsy of Re troperitoneumon [...] procedure. The interservice time was [address] scans were obtained. Dose reduction was [...] procedure and there were no immediate complications. [facility] Tha Hamm MD - 12/22/2024 [...] procedure. The interservice time was 30 [address] scans were obtained. Dose reduction was [...] Electronically Signed Date/Time: 12/22/2024 11:15 AM EDT [facility] Radiology Study observation (narrative) [facility] CT Guidance for biopsy of Re troperitoneumOrdered By: Tha Hamm on 12-22-2024 [facility] Work Phone: Laboratory - Coagulationon 0 12-22-2024 PT Coag (Bld) [Time] 10.9 s 9.0 - 1 2.0 s [facility] Nursing Noteon 12-22-2024 Nursing Note Discharge instructions given patient verbalizes understanding. IV discontinued, Bx. Site intact no complications. Patient wheeled out via wheelchair Normal [facility] Nursing Note Pt c/o nausea. Ginge r rick and crackers provided. Normal [facility] PROTHROMBIN TIMEon INR Coag (PPP) [Relative time] 1.0 {INR} Normal 0.9-1.1 [facility] Comment on above: Result Comment: Regan mmended [...] Myocardial Infarction Performed By: #### L [id number] ####Environment Friendly Landscape Designer: NIEVES RUIZ ([id number])[facility] ([address] PT Coag (PPP) [Time] 10.9 s Normal 9.0-12.0 [facility] Comment on above: Performed By: #### L [id number] ####Environment Friendly Landscape Designer: NIEVES RUIZ ([id number])[facility] ([facility] PT Coag (Bld) [Time]on 12-22 INR Coag (PPP) [Relative time] 1 {INR} 0.9 - 1.1 [facility] Comment on above: Recommended Anticoag ulant Therapy: [...] Infarction Interpretation and review of laboratory results [facility] [id number] 12-11-[id number] [facility] 36on 12-11-[address] [facility] Progress Noteon 12-08-2024 Progress Note Normal [facility] Progress Note Maintenance Of Way Supervisor was hong mims to the patient for exam. Patient accepted, biomedical field service engineer in room during exam [facility] 36on 12-04-[address] [facility] Progress Noteon 11-25-2024 Progress Note Normal [facility] Progress Note Normal [facility] Progress Note Normal [facility] Progress Noteon 11-21-2024 Progress Note -Continue atorvastatin Normal [facility] Progress Note - stable - continue Celexa [address] [facility] Progress Note -Continue brimonidine, timolol Normal [facility] Progress Note -11/02 TSH 3.03 -Continue levothyroxine Normal [facility] Progress Note -BGTs have improved, average 150 -11/02 A1C 12.9 -Continue Lispro to 15U with meals -Continue Lantus 28 units, and metformin ER 500mg daily -Accuchecks monitor trends -Hypoglycemia protocol in place [facility] Progress Note -11/10 Vitamin D: 26, patient likely not taking supplementation regularly -Continue daily supplement for now- 2000 units daily Normal [facility] Progress Note -BLE wrapped at time of exam -Unna boot treatments applied 11/17 -10 lbs weight gained since admission likely 2/2 lymphedema and improved oral intake -In-house wound care following patient while admitted Normal [facility] Progress Note - lost to follow up with gyne - will need follow up - reviewed with patient today Normal [facility] Progress Note Normal [facility] Progress Note -Overall controlled currently -Prior to admission on olmesartan, and carvedilol discontinued for now -Continue metoprolol -Has follow-up with [facility] Cardiology on 12/02 as above Normal [facility] Progress Note Normal [facility] Progress Note - has PRN albuterol - hasn't used it since admission Normal [facility] Progress Note -continue melatonin 5mg nightly Normal [facility] Progress Note Normal [facility] Progress Note -BIMS 05/06 - continuing to make improvements with Speech Therapy in area of cognition - Recommend outpatient follow up at the [facility] ([place]) for formal congitive testing Normal [facility] Progress Note Normal [facility] Progress Note - wound team started Bactrim 11/17-11/24 for bilateral LE cellulitis - both legs were very swollen and weeping per report Normal [facility] Progress Note Normal [facility] 36on 11-19-2024 36 Letter mailed to patient Normal [facility] Progress Noteon 11-18-2024 Progress Note Normal [facility] Progress Note Normal [facility] Progress Note Normal [facility] 36on 11-13-2024 36 Second attempt to reach patient no answer/unable to leave voicemail. Normal [facility] 36on 11-12-2024 36 Attempted to reach patient no answer/unable to leave voicemail. Normal [facility] CT Abdomen and Pelvis WO and W [...] SYSTEM [facility] Name[facility] DAME[facility] 1955 [id number] Exam Date/Time: 11/11/2024 08:29 Procedure: CT CHEST [...] lesions are seen on the bone windows. [facility] Melo Luis MD - 11/12/2024 [...] Electronically Signed Date/Time: 11/12/2024 5:47 PM EDT [facility] CT Abdomen and Pelvis WO and W contrast IVOrdered By: Melo Luis on 11-12-[address] [facility] [address] CHEST ABDOMEN PELVIS W CO NTRASTon 11-12-2024 CT CHEST ABDOMEN PELVIS W CONTRAST Normal [facility] CT HEAD W AND WO IV CONTRAST on 11-12-2024 CT HEAD W AND WO IV CONTRAST Normal [facility] CT Head WO and W contrast IV on 11-12-2024 No acute intracrania l abnormality. No enhancing lesions. Report Dictated on Electronically Signed By: Curt Monsalve MD Electronically Signed Date/Time: 11/12/2024 3:42 PM EDT [facility] Patient Name: DAMEON POTTER : [...] sinuses and orbits are within normal limits. [facility] Curt Monsalve M D - 11/12/2024 [...] Electronically Signed Date/Time: 11/12/2024 3:42 PM EDT [facility] CT Head WO and W contrast IV Ordered By: Curt Monsalve on 11-12-2024 [employer] Work Phone: Progress Noteon 11-12-2024 Progress Note Normal [facility] Progress Note -Swelling noticeable today on exam, especially to LLE. Seen today by wound care RESOURCE CONSERVATION MANAGER, awaiting orders from wound CLINICAL DERMATOLOGIST per documentation -BLE follows with wound care center per patient -In-house wound care following patient while admitted Normal [facility] Progress Note Normal [facility] CT Abdomen and Pelvis WO and W contrast Brittany 11-11-2024 Radiology Study observation (narrative) Nikole Polanco alth CT Head WO and W contrast IV on 11-11-2024 Radiology Study observation (narrative) Nikole Polanco alth [id number] 11-10-2024 [id number] Patient Choice Patient Name: DAMEON POTTER Date of : 1955 Normal [facility] Progress Noteon 11-10-2024 Progress Note -Schedule melatonin 5mg nightly Normal [facility] Progress Note Normal [facility] Progress Note -BGTs remain elevate d -11/02 A1C 12.9 -Increase Lispro to 10U with meals -Continue Lantus 28 units -Could consider addition of metformin as could help with insulin resistance 2/2 to PCOS -Accuchecks monitor trends -Hypoglycemia protocol in place Normal [facility] Progress Note Normal [facility] Progress Noteon 11-08-2024 Progress Note Normal [facility] Progress Note - Continue Physical Therapy/ Occupational Therapy with goal to improve function Normal [facility] Progress Note -Continue atorvastatin Normal [facility] Progress Note - patient very upset about being in group home - will continue to work with her and family to determine best discharge - continue Celexa 20 units daily Normal [facility] Progress Note -11/02 TSH 3.03 -Continue levothyroxine Normal [facility] Progress Note -BGTs elevated since arrival to [facility] -11/02 A1C 12.9 -Continue Lispro 8U with meals, and increase Lantus from 24 to 28 units -Accuchecks monitor trends -Hypoglycemia protocol in place Normal [facility] Progress Note -Check Vitamin D level 11/10 -Continue daily supplement for now Normal [facility] Progress Note - long standing per chart Normal [facility] Progress Note - lost to follow up with gyne - disposition from [facility] not clear yet - will need follow up Normal [facility] Progress Note -Continue brimonidine, timolol Normal [facility] Progress Note Normal [facility] Progress Note -Overall controlled currently -Prior to admission on olmesartan, and carvedilol discontinued for now -Continue metoprolol -Has follow-up with [facility] Cardiology on 12/[address] [facility] Progress Note Normal [facility] 36on 11-07-2024 36 Normal [facility] Progress Noteon 11-07-2024 Progress Note Normal [facility] Progress Noteon 11-06-2024 Progress Note -BGTs elevated since arrival to [facility] -11/02 A1C 12.9 -Will add low dose SSI today, likely will need increase in prandial insulin next week -Continue Lispro 8U with meals, and 24U Lantus -Accuchecks monitor trends -Hypoglycemia protocol in place Normal [facility] Progress Note -Check Vitamin D level 11/07 -Continue daily supplement for now Normal [facility] Progress Note -11/02 TSH 3.03 -Continue levothyroxine Normal [facility] Progress Note -Continue brimonidine, timolol Normal [facility] Progress Note -Continue atorvastatin Normal [facility] Progress Note -Overall controlled currently -Prior to admission on olmesartan, and carvedilol discontinued for now -Continue metoprolol -Has follow-up with [facility] Cardiology on 12/[address] [facility] Progress Note Normal [facility] Progress Note Normal [facility] Progress Note Normal [facility] Progress Note -Current status: assist x1 -Contributing factors: hospitalization, acute illness, new onset afib -Continue PT/OT during SNF stay -SW to follow for discharge planning Normal [facility] Progress Note Normal [facility] 30on 11-05-2024 30 Normal [facility] 30 Normal [facility] [id number] 11-05-2024 [id number] Normal [facility] [id number] [facility] [id number] Discharge med list transmitted to [facility] per [facility] request. [id number] completed in [facility] per [facility] request. Facility notified via [facility]. [facility] [phone] [facility] tasked to send discharge order, MAR and 7000 to [place]. Normal [facility] [phone] VM discontinued yesterday at 1pm. [place] updated an asked if they would have a bed. Geriatrics/ cards following. Normal [facility] 36on 11-05-2024 36 Admitted to [facility] Hospital. Orders reviewed. Will see on Sunday. Normal [facility] BASIC METABOLIC PANELon 10-21 Anion gap [Moles/Vol] 11 mmol/L Normal 3-13 [facility] Comment on above: Performed By: #### L AB15 ####Environment Friendly Landscape Designer: NIEVES RUIZ ([phone])[facility] ([facility])[address] [place] [address] Calcium [Mass/Vol] 8.0 mg/dL Low 8.8-10.0 [facility] Comment on above: Performed By: #### L AB15 ####Environment Friendly Landscape Designer: NIEVES RUIZ ([phone])[facility] ([facility])[address] [place] [address] [place] Chloride [Moles/Vol] 107 mmol/L Normal 98-107 [facility] Comment on above: Performed By: #### L AB15 ####Environment Friendly Landscape Designer: NIEVES RUIZ ([phone])[facility] ([facility])[address] [place] [address] [place] CO2 [Moles/Vol] 19 mmol/L Low 23-31 [facility] Comment on above: Performed By: #### L AB15 ####Environment Friendly Landscape Designer: NIEVES RUIZ ([phone])[facility] ([facility])[address] [place] [address] Creatinine [Mass/Vol] 0.85 mg/dL Normal 0.57-1.11 [facility] Comment on above: Performed By: #### L AB15 ####Environment Friendly Landscape Designer: NIEVES RUIZ ([phone])[facility] ([facility])[address] [place] [address] [place] GLOMERULAR FILTRATION RATE ML/MIN/1.73 SQ M.PREDICTED 74.3 mL/min/1.73m*2 Normal >60.0 [facility] Comment on above: Result Comment: Calc ulation based on the Chronic Kidney Disease Epidemiology Collaboration (CKD-EPI) equation refit without adjustment for race Performed By: #### L AB15 ####Environment Friendly Landscape Designer: NIEVES RUIZ ([phone])[facility])[address] [place] [address] Glucose [Mass/Vol] 138 mg/dL High 82-115 [facility] Comment on above: Performed By: #### L AB15 ####Environment Friendly Landscape Designer: NIEVES RUIZ ([phone])[facility])[address] [place] [address] Potassium [Moles/Vol] 3.5 mmol/L Normal 3.5-5.1 [facility] Comment on above: Result Comment: [facility] potassium values may be up to 0.5 mmol/L lower than serum values. Performed By: #### L AB15 ####Environment Friendly Landscape Designer: NIEVES RUIZ ([phone])[facility])[address] [place] [address] Sodium [Moles/Vol] 137 mmol/L Normal 136-145 [facility] Comment on above: Performed By: #### L AB15 ####Environment Friendly Landscape Designer: NIEVES RUIZ ([phone])[address] Urea nitrogen [Mass/Vol] 27 mg/dL High 9-23 [facility] Comment on above: Performed By: #### L AB15 ####Environment Friendly Landscape Designer: NIEVES RUIZ ([phone])[address] Basic metabolic 1998 panelon 11-05-2024 Anion gap [Moles/Vol] 11 mmol/L 3 - 13 mmol/L [facility] Calcium [Mass/Vol] 8 mg/dL Low 8.8 - 10. 0 mg/dL [facility] Chloride [Moles/Vol] 107 mmol/L 98 - 10 7 mmol/L [facility] CO2 [Moles/Vol] 19 mmol/L Low 23 - 31 mmol/L [facility] Creatinine [Mass/Vol] 0.85 mg/dL 0.57 - 1.11 mg/dL [facility] GFR/1.73 sq M.predicted (S/P/Bld) [Vol rate/Area] 74.3 mL/min - PINF [facility] Comment on above: Calculation based on the Chronic Kidney Disease Epidemiology Collaboration (CKD-EPI) equation refit without adjustment for race Glucose [Mass/Vol] 138 mg/dL High 82 - 115 mg/dL [facility] Interpretation and review of laboratory results Abnormal [facility] Potassium [Moles/Vol] 3.5 mmol/L 3.5 - 5.1 mmol/L [facility] Comment on above: Plasma potassium syed ues may be up to 0.5 mmol/L lower than serum values. Sodium [Moles/Vol] 137 mmol/L 136 - 145 mmol/L [facility] Urea nitrogen [Mass/Vol] 27 mg/dL High 9 - 23 mg/dL [facility] Laboratory - Chemistry and C hemistry - challengeon 11-05-2024 Glucose [Mass/Vol] 192 mg/dL High 70 - 100 mg/dL [facility] No Panel Informationon 11-05 Interpretation and review of laboratory results Abnormal [facility] Performed by: [facility], [address] [place] [address] CLIA ID: [id number] [facility] Nursing Noteon 11-05-2024 Nursing Note Gave report to [facility] [place]. Normal [facility] Progress Noteon 11-05-2024 Progress Note Normal [facility] Progress Note Normal [facility] [id number] 11-04-2024 [id number] [place] able to accept pt. Ramila cao talked with pt. She will need to be 24hr free of VM. Provider and nurse notified. Normal [facility] [id number] Normal [facility] [id number] Normal [facility] Bacteria identified Cx Nom ( U)Ordered By: Alida Carrington on 11-04-2024 Interpretation and review of laboratory results Abnormal [facility] CBC (HEMOGRAM)on 11-04-2024 Erythrocyte distribution width (RBC) [Ratio] 13.6 % Normal 11.5-15.0 [facility] Comment on above: Performed By: #### L [id number] ####Environment Friendly Landscape Designer: NIEVES RUIZ ([phone])[facility])[address] [place] [address] Hematocrit (Bld) [Volume fraction] 35.5 % Normal 35.0-47.0 [facility] Comment on above: Performed By: #### L AB294 ####Environment Friendly Landscape Designer: NIEVES RUIZ ([id number])[facility])[address] [place] [address] Hemoglobin (Bld) [Mass/Vol] 11.8 g/dL Normal 11.7-16.0 [facility] Comment on above: Performed By: #### L [id number] ####Environment Friendly Landscape Designer: NIEVES RUIZ ([phone])[facility])[address] [place] [address] [place] IPF [address] [facility] Comment on above: Performed By: #### L [id number] ####Environment Friendly Landscape Designer: NIEVES RUIZ ([phone])[facility])[address] [place] [address] MCH (RBC) [Entitic mass] 29.0 pg Normal 26.0-34.[address] [facility] Comment on above: Performed By: #### L AB294 ####Environment Friendly Landscape Designer: NIEVES RUIZ ([phone])[facility])[address] [place] [address] MCHC 33.2 % Normal 30.5-36.[address] [facility] Comment on above: Performed By: #### L AB294 ####Environment Friendly Landscape Designer: NIEVES RUIZ ([phone])[facility])[address] [place] [address] MCV (RBC) [Entitic vol] 87.2 fL Normal 77.0-99.0 [facility] Comment on above: Performed By: #### L AB294 ####Environment Friendly Landscape Designer: NIEVES RUIZ ([id number])[facility] ([facility])[address] [place] [address] Platelet mean volume (Bld) [Entitic vol] 13.1 fL High 9.0-12.7 [facility] Comment on above: Performed By: #### L AB294 ####Environment Friendly Landscape Designer: NIEVES RUIZ ([id number])[facility] ([facility])[address] [place] [address] Platelets (Bld) [#/Vol] 103 10*3/uL Low 140-440 [facility] Comment on above: Performed By: #### L [id number] ####Environment Friendly Landscape Designer: NIEVES RUIZ ([phone])[facility] ([facility])[address] [place] [address] RBC (Bld) [#/Vol] 4.07 10*6/uL Normal 3.80-5.20 [facility] Comment on above: Performed By: #### L [id number] ####Environment Friendly Landscape Designer: NIEVES RUIZ ([id number])[facility] ([facility])[address] [place] [address] WBC (Bld) [#/Vol] 8.1 10*3/uL Normal 3.6-10.7 [facility] Comment on above: Performed By: #### L [id number] ####Environment Friendly Landscape Designer: NIEVES RUIZ ([phone])[facility] ([facility])[address] [place] [address] CBC panel Auto (Bld)Ordered By: Cornelio Mathew on 11-04-2024 Erythrocyte distribution width (RBC) [Ratio] 13.6 % 11.5 - 15.0 % [facility] Hematocrit (Bld) [Volume fraction] 35.5 % 35.0 - 47.0 % [facility] Hemoglobin (Bld) [Mass/Vol] 11.8 g/dL 11.7 - 16.0 g/dL [facility] Interpretation and review of laboratory results Abnormal [facility] th IPF 8 [facility] MCH (RBC) [Entitic mass] 29 pg 26. 0 - 34.0 pg [facility] MCHC (RBC) [Mass/Vol] 33.2 % 30.5 - 36.0 % [facility] MCV (RBC) [Entitic vol] 87.2 fL 77.0 - 99.0 fL [facility] Platelet mean volume (Bld) [Entitic vol] 13.1 fL High 9.0 - 12.7 fL [facility] Platelets (Bld) [#/Vol] 103 10*3/uL Low 140 - 440 10*3/uL [facility] RBC (Bld) [#/Vol] 4.07 10*6/uL 3.80 - 5.2 0 10*6/uL [facility] WBC (Bld) [#/Vol] 8.1 10*3/uL 3.6 - 10.7 10*3/uL [facility] Consulton 11-04-2024 Consult Normal [facility] Laboratory - Chemistry and C hemistry - challengeon 11-04-2024 Glucose [Mass/Vol] 230 mg/dL High 70 - 100 mg/dL [facility] Glucose [Mass/Vol] 220 mg/dL High 70 - 100 mg/dL [facility] Glucose [Mass/Vol] 186 mg/dL High 70 - 100 mg/dL [facility] Glucose [Mass/Vol] 195 mg/dL High 70 - 100 mg/dL [facility] Laboratory - Microbiology an d Antimicrobial susceptibilityOrdered By: Alida Carrington on 11-04-2024 Bacteria identified Cx Nom (U) Normal urogenital miah present [facility] Bacteria identified Cx Nom (U) >100,000 CFU/mL Escherichia coli Abnormal [facility] No Panel Informationon 11-04 Interpretation and review of laboratory results Abnormal [facility] th Performed by: [facility], [address] [place] [address] CLIA ID: [id number] [facility] Interpretation and review of laboratory results Abnormal [facility] th Performed by: [facility], [address] [place] [address] CLIA ID: [id number] [facility] Interpretation and review of laboratory results Abnormal [facility] Performed by: [facility], [address] [place] [address] CLIA ID: [id number] [facility] Interpretation and review of laboratory results Abnormal [facility] th Performed by: [facility], [address] [place] [address] CLIA ID: [id number] [facility] Nursing Noteon 11-04-2024 Nursing Note Visual monitor removed from room. Pt has been free of any events today that would require a monitor Normal [facility] Progress Noteon 11-04-2024 Progress Note [facility] [id number] 11-03-2024 [id number] Normal [facility] APTTon 11-03-2024 aPTT Coag (Bld) [Time] 26.5 s Normal 20.0-30.5 [facility] Comment on above: Result Comment: SUNG Bryan COMMENTS:NOTE: The therapeutic time for Heparin anticoagulation, based on Xa activity inhibition, is an APTT of 46-80 seconds. Performed By: #### L AB325 ####Environment Friendly Landscape Designer: NIEVES RUIZ ([phone])[facility] ([facility])[address] [place] [address] BASIC METABOLIC PANELon 10-21 Anion gap [Moles/Vol] 13 mmol/L Normal 3-13 [facility] Comment on above: Performed By: #### L AB15, LAB67 ####Environment Friendly Landscape Designer: NIEVES RUIZ ([phone])[facility] [place] [address] Calcium [Mass/Vol] 8.8 mg/dL Normal 8.8-10.0 [facility] Comment on above: Performed By: #### L AB15, LAB67 ####Environment Friendly Landscape Designer: NIEVES RUIZ ([phone])[facility] [place] [address] Chloride [Moles/Vol] 105 mmol/L Normal 98-107 [facility] Comment on above: Performed By: #### L AB15, LAB67 ####Environment Friendly Landscape Designer: NIEVES RUIZ ([id number])[facility] ([facility])[address] [place] [address] CO2 [Moles/Vol] 19 mmol/L Low 23-31 [facility] Comment on above: Performed By: #### L AB15, LAB67 ####Environment Friendly Landscape Designer: NIEVES RUIZ ([phone])[facility])[address] [place] [address] Creatinine [Mass/Vol] 1.03 mg/dL Normal 0.57-1.11 [facility] Comment on above: Performed By: #### L AB15, LAB67 ####Environment Friendly Landscape Designer: NIEVES RUIZ ([phone])[facility])[address] [place] [address] GLOMERULAR FILTRATION RATE ML/MIN/1.73 SQ M.PREDICTED 59.0 mL/min/1.73m*2 Low >60.0 [facility] Comment on above: Result Comment: Calc ulation based on the Chronic Kidney Disease Epidemiology Collaboration (CKD-EPI) equation refit without adjustment for race Performed By: #### L AB15, LAB67 ####Environment Friendly Landscape Designer: NIEVES RUIZ ([phone])[facility])[address] [place] [address] Glucose [Mass/Vol] 238 mg/dL High 82-115 [facility] Comment on above: Performed By: #### L AB15, LAB67 ####Environment Friendly Landscape Designer: NIEVES RUIZ ([phone])[facility])[address] [place] [address] Potassium [Moles/Vol] 3.6 mmol/L Normal 3.5-5.1 [facility] Comment on above: Result Comment: [facility] potassium values may be up to 0.5 mmol/L lower than serum values. Performed By: #### L AB15, LAB67 ####Environment Friendly Landscape Designer: NIEVES RUIZ ([phone])[facility])[address] [place] [address] [place] Sodium [Moles/Vol] 137 mmol/L Normal 136-145 [facility] Comment on above: Performed By: #### L AB15, LAB67 ####Environment Friendly Landscape Designer: NIEVES RUIZ ([phone])[facility])[address] [place] [address] Urea nitrogen [Mass/Vol] 31 mg/dL High 9-23 [facility] Comment on above: Performed By: #### L AB15, LAB67 ####Environment Friendly Landscape Designer: NIEVES RUIZ ([phone])[facility] ([facility])[address] [place] [address] Basic metabolic 1998 panelon 11-03-2024 Anion gap [Moles/Vol] 13 mmol/L 3 - 13 mmol/L [facility] Calcium [Mass/Vol] 8.8 mg/dL 8.8 - 10. 0 mg/dL [facility] Chloride [Moles/Vol] 105 mmol/L 98 - 10 7 mmol/L [facility] CO2 [Moles/Vol] 19 mmol/L Low 23 - 31 mmol/L [facility] Creatinine [Mass/Vol] 1.03 mg/dL 0.57 - 1.11 mg/dL [facility] GFR/1.73 sq M.predicted (S/P/Bld) [Vol rate/Area] 59 mL/min Low - PINF [facility] Comment on above: Calculation based on the Chronic Kidney Disease Epidemiology Collaboration (CKD-EPI) equation refit without adjustment for race Glucose [Mass/Vol] 238 mg/dL High 82 - 115 mg/dL [facility] Interpretation and review of laboratory results Abnormal [facility] th Potassium [Moles/Vol] 3.6 mmol/L 3.5 - 5.1 mmol/L [facility] Comment on above: Plasma potassium syde ues may be up to 0.5 mmol/L lower than serum values. Sodium [Moles/Vol] 137 mmol/L 136 - 145 mmol/L [facility] Urea nitrogen [Mass/Vol] 31 mg/dL High 9 - 23 mg/dL [facility] CBC (HEMOGRAM)on 11-03-2024 Erythrocyte distribution width (RBC) [Ratio] 13.6 % Normal 11.5-15.0 [facility] Comment on above: Performed By: #### L [id number] ####Environment Friendly Landscape Designer: NIEVES RUIZ ([phone])[facility])[address] [place] [address] Hematocrit (Bld) [Volume fraction] 37.8 % Normal 35.0-47.[address] [facility] Comment on above: Performed By: #### L AB294 ####Environment Friendly Landscape Designer: NIEVES RUIZ ([phone])[facility])[address] [place] [address] Hemoglobin (Bld) [Mass/Vol] 12.8 g/dL Normal 11.7-16.[address] [facility] Comment on above: Performed By: #### L AB294 ####Environment Friendly Landscape Designer: NIEVES RUIZ ([phone])[facility])[address] [place] [address] MCH (RBC) [Entitic mass] 28.9 pg Normal 26.0-34.[address] [facility] Comment on above: Performed By: #### L AB294 ####Environment Friendly Landscape Designer: NIEVES RUIZ ([phone])[facility] ([facility])[address] [place] [address] MCHC 33.9 % Normal 30.5-36.[address] [facility] Comment on above: Performed By: #### L AB294 ####Environment Friendly Landscape Designer: NIEVES RUIZ ([id number])[facility])[address] [place] [address] MCV (RBC) [Entitic vol] 85.3 fL Normal 77.0-99.0 [facility] Comment on above: Performed By: #### L AB294 ####Environment Friendly Landscape Designer: NIEVES RUIZ ([phone])[facility])[address] [place] [address] Platelet mean volume (Bld) [Entitic vol] 13.0 fL High 9.0-12.[address] [facility] Comment on above: Performed By: #### L AB294 ####Environment Friendly Landscape Designer: NIEVES RUIZ ([id number])[facility] [place] [address] Platelets (Bld) [#/Vol] 200 10*3/uL Normal 140-440 [facility] Comment on above: Performed By: #### L AB294 ####Environment Friendly Landscape Designer: NIEVES RUIZ ([phone])[address] RBC (Bld) [#/Vol] 4.43 10*6/uL Normal 3.80-5.20 [facility] Comment on above: Performed By: #### L AB294 ####Environment Friendly Landscape Designer: NIEVES RUIZ ([id number])[address] WBC (Bld) [#/Vol] 8.8 10*3/uL Normal 3.6-10.7 [facility] Comment on above: Performed By: #### L [id number] ####Environment Friendly Landscape Designer: NIEVES RUIZ ([phone])[address] CBC panel Auto (Bld)on 11-03 Erythrocyte distribution width (RBC) [Ratio] 13.6 % 11.5 - 15.0 % [facility] Hematocrit (Bld) [Volume fraction] 37.8 % 35.0 - 47.0 % [facility] Hemoglobin (Bld) [Mass/Vol] 12.8 g/dL 11.7 - 16.0 g/dL [facility] Interpretation and review of laboratory results Abnormal [facility] MCH (RBC) [Entitic mass] 28.9 pg 26. 0 - 34.0 pg [facility] MCHC (RBC) [Mass/Vol] 33.9 % 30.5 - 36.0 % [facility] MCV (RBC) [Entitic vol] 85.3 fL 77.0 - 99.0 fL [facility] Platelet mean volume (Bld) [Entitic vol] 13 fL High 9.0 - 12.7 fL [facility] Platelets (Bld) [#/Vol] 200 10*3/uL 140 - 440 10*3/uL [facility] RBC (Bld) [#/Vol] 4.43 10*6/uL 3.80 - 5.2 0 10*6/uL [facility] WBC (Bld) [#/Vol] 8.8 10*3/uL 3.6 - 10.7 10*3/uL [facility] Cobalamin (Vitamin B12) [Mas s/Vol]on 11-03-2024 Interpretation and review of laboratory results Abnormal [facility] Consulton 11-03-[address] [facility] Consult Normal [facility] Laboratory - Chemistry and C hemistry - challengeon 11-03-2024 Glucose [Mass/Vol] 246 mg/dL High 70 - 100 mg/dL [facility] Glucose [Mass/Vol] 227 mg/dL High 70 - 100 mg/dL [facility] Cobalamin (Vitamin B12) [Mass/Vol] 1369 pg/mL High 213 - 816 pg/mL [facility] Comment on above: TC Significant interference from hemolysis. Result integrity compromised. Interpret with caution. Glucose [Mass/Vol] 264 mg/dL High 70 - 100 mg/dL [facility] Glucose [Mass/Vol] 257 mg/dL High 70 - 100 mg/dL [facility] No Panel Informationon 11-03 Interpretation and review of laboratory results Abnormal [facility] Performed by: [facility], [address] [place] [id number] CLIA ID: [id number] [facility] Interpretation and review of laboratory results Abnormal [facility] Performed by: [facility], [address] [place] [address] CLIA ID: [id number] [facility] Interpretation and review of laboratory results Abnormal [facility] Performed by: [facility], [address] [place] [address] CLIA ID: [id number] [facility] Interpretation and review of laboratory results Abnormal [facility] Performed by: [facility], [address] [place] [address] CLIA ID: [id number] [facility] Progress Noteon 11-03-2024 Progress Note Normal [facility] Progress Note Normal [facility] Progress Note Normal [facility] Progress Note Normal [facility] Progress Note OCCUPATIONAL THERAPY [facility] Name/MRN: Dameon Potter ([id number]) Date: 11/03/2024 OT eval and treat order received. Patient chart reviewed. Patient currently starting bedside ECHO. Will continue to follow. Laura Combs, OT Normal [facility] US Heart TransthoracicOrdere d By: Jorden Greenberg on 11-03-2024 Ao Root Index 1.8 cm/m2 [facility] Work Phone: Aortic Root 3.7 cm [facility] Work Phone: Aortic Sinus Valsalva 3.7 cm [facility] Work Phone: Aortic Sinus Valsalva Index 1.8 cm/m2 [facility] Work Phone: Aortic valve Mean systole pressure gradient by US.doppler derived full Bernoulli 18 mmHg [facility] Work Phone: Aortic valve Orifice area by US 2.8 cm2 [facility] Work Phone: Aortic valve Peak systolic flow by US.doppler 2 m/s [facility] Work Phone: Ascending [facility] Work Phone: Ascending Aorta Index 1.65 cm/m2 [facility] Work Phone: AV Area by Peak Velocity 1.2 cm2 [facility] Work Phone: AV Area by VTI 1.3 cm2 [facility] Work Phone: AV AT 74.22 ms [facility] Work Phone: AV Peak Gradient 28 mmHg [facility] Work Phone: AV Peak Velocity 2.7 m/s [facility] Work Phone: AV Velocity Ratio 0.41 [facility] Work Phone: AV VTI 40.4 cm [facility] Work Phone: PEÑA/BSA Peak Velocity 0.6 cm2/m2 [facility] Work Phone: PEÑA/BSA VTI 0.6 cm2/m2 [facility] Work Phone: Est. RA Pressure 15 mmHg [facility] alth Work Phone: Interpretation and review of laboratory results Abnormal [facility] Work Phone: IVC Diameter 2.3 cm [facility] Work Phone: LA Volume 2C 61 mL Abnormal 22 - 52 mL [facility] Work Phone: LA Volume 4C 66 mL Abnormal 22 - 52 mL [facility] Work Phone: LA Volume A/L 66 mL [facility] Work Phone: LA Volume BP 63 mL Abnormal 22 - 52 mL [facility] Work Phone: LA Volume Index 2C 30 mL/m2 16 - 34 mL/m2 [facility] Work Phone: [phone] LA Volume Index 4C 32 mL/m2 16 - 34 mL/m2 [facility] Work Phone: LA Volume Index A/L 32 mL/m2 16 - 34 mL/m2 [facility] Work Phone: [phone] LA Volume Index BP 31 ml/m2 16 - 34 ml/m2 [facility] Work Phone: Left ventricular Ejection fraction by US.2D+Calculated by biplane method of disks 61 % 55 - 100 % [facility] Work Phone: LV EDV A2C 75 mL [facility] Work Phone: LV EDV A4C 70 mL [facility] Work Phone: LV EDV BP 74 mL 56 - 104 mL [facility] Work Phone: LV EDV Index A2C 36 mL/m2 [facility] Work Phone: LV EDV Index A4C 34 mL/m2 [facility] Work Phone: LV EDV Index BP 36 mL/m2 [facility] Work Phone: LV Ejection Fraction A2C 58 % [facility] Work Phone: LV Ejection Fraction A4C [...] Phone: LV ESV Index BP 14 mL/m2 [facility] Work Phone: LVOT Cardiac Output 7.3 liter/mi nut e [facility] Work Phone: LVOT Diameter 1.9 cm [facility] Work Phone: LVOT Mean Gradient 3 mmHg [facility] Work Phone: [phone] LVOT Peak Gradient 5 mmHg [facility] Work Phone: [phone] LVOT Peak Velocity 1.1 m/s [facility] Work Phone: [phone] LVOT Stroke Volume Index 25.3 mL/m2 [facility] Work Phone: LVOT SV 52.1 ml [facility] Work Phone: LVOT VTI 18.4 cm [facility] Work Phone: LVOT:AV VTI Index 0.46 [facility] Work Phone: [phone] RA Area 4C 39.1 mL [facility] Work Phone: [phone] RA Area 4C 38.4 mL [facility] Work Phone: [phone] RV Basal Dimension 3.9 cm [facility] Work Phone: [phone] RV Free Wall Peak S' 15 cm/s [facility] Work Phone: [phone] RV Longitudinal Dimension 6.6 cm [facility] Work Phone: [phone] RV Mid Dimension 3 cm [facility] al[facility] Work Phone: Sinotubular Junction 2.8 cm [facility] Work Phone: TAPSE 2.1 cm 1.7 cm [facility] Work Phone: [facility] Work Phone: [facility] Transthoracicon Left Ventricle: Left ventricle [...] (Vitamin B12) [Mass/Vol] 1369 pg/mL High 213-816 [facility] Comment on above: Result Comment: TCSi gnificant interference from hemolysis. Result integrity compromised. Interpret with caution. Performed By: #### L AB15, LAB67 ####Environment Friendly Landscape Designer: NIEVES RUIZ ([phone])[facility])[address] [place] [address] aPTT Coag (Bld) [Time]on aPTT Coag (PPP) [Time] 26.5 s 20.0 - 30.5 s [facility] Interpretation and review of laboratory results Normal [facility] NOTE: The therapeuti c time for Heparin anticoagulation, based on Xa activity inhibition, is an APTT of 46-80 seconds. [facility] 30on 11-02-2024 30 Normal [facility] AMMONIAon 11-02-2024 Ammonia (P) [Moles/Vol] 31 umol/L Normal 18-72 [facility] Comment on above: Result Comment: TCHe molyzed samples should not be used. Performed By: #### L AB47 ####Environment Friendly Landscape Designer: NIEVES RUIZ ([phone])[address] APTTon 11-02-2024 aPTT Coag (Bld) [Time] 21.1 s Normal 20.0-30.5 [facility] Comment on above: Result Comment: ORDE R COMMENTS:NOTE: The therapeutic time for Heparin anticoagulation, based on Xa activity inhibition, is an APTT of 46-80 seconds. Performed By: #### L [id number] ####Environment Friendly Landscape Designer: NIEVES RUIZ ([phone])[facility])[address] [place] [address] BASIC METABOLIC PANELon - Anion gap [Moles/Vol] 12 mmol/L Normal -13 [facility] Comment on above: Performed By: #### L AB15 ####Environment Friendly Landscape Designer: NIEVES RUIZ ([phone])[facility] ([facility])[address] [place] [address] Calcium [Mass/Vol] 8.9 mg/dL Normal 8.8-10.0 [facility] Comment on above: Performed By: #### L AB15 ####Environment Friendly Landscape Designer: NIEVES RUIZ ([phone])[facility] ([facility])[address] [place] [address] [place] Chloride [Moles/Vol] 102 mmol/L Normal 98-107 [facility] Comment on above: Performed By: #### L AB15 ####Environment Friendly Landscape Designer: NIEVES RUIZ ([id number])[facility] ([facility])[address] [place] [address] CO2 [Moles/Vol] 19 mmol/L Low 23-31 [facility] Comment on above: Performed By: #### L AB15 ####Environment Friendly Landscape Designer: NIEVES RUIZ ([phone])[facility] ([facility])[address] [place] [address] Creatinine [Mass/Vol] 1.26 mg/dL High 0.57-1.11 [facility] Comment on above: Performed By: #### L AB15 ####Environment Friendly Landscape Designer: NIEVES RUIZ ([phone])[facility] ([facility])[address] [place] [address] [place] GLOMERULAR FILTRATION RATE ML/MIN/1.73 SQ M.PREDICTED 46.3 mL/min/1.73m*2 Low >60.0 [facility] Comment on above: Result Comment: Calc ulation based on the Chronic Kidney Disease Epidemiology Collaboration (CKD-EPI) equation refit without adjustment for race Performed By: #### L AB15 ####Environment Friendly Landscape Designer: NIEVES RUIZ ([phone])[facility] ([facility])[address] [place] [address] [place] Glucose [Mass/Vol] 278 mg/dL High 82-115 [facility] Comment on above: Performed By: #### L AB15 ####Environment Friendly Landscape Designer: NIEVES RUIZ ([phone])[facility])[address] [place] [address] Potassium [Moles/Vol] 4.5 mmol/L Normal 3.5-5.1 [facility] Comment on above: Result Comment: TCPo tential interference from hemolysis Performed By: #### L AB15 ####Environment Friendly Landscape Designer: NIEVES RUIZ ([id number])[facility] ([facility])[address] [place] [address] Sodium [Moles/Vol] 133 mmol/L Low 136-145 [facility] Comment on above: Performed By: #### L AB15 ####Environment Friendly Landscape Designer: NIEVES RUIZ ([phone])[facility])[address] [place] [address] Urea nitrogen [Mass/Vol] 31 mg/dL High 9-23 [facility] Comment on above: Performed By: #### L AB15 ####Environment Friendly Landscape Designer: NIEVES RUIZ ([phone])[facility] ([facility])[address] [place] [address] Anion gap [Moles/Vol] 13 mmol/L Normal 3-13 [facility] Comment on above: Performed By: #### L [id number], [id number], VXR176, LAB15, DBK331 ####Environment Friendly Landscape Designer: NIEVES RUIZ ([phone])[facility] ([facility])[address] [place] [address] Calcium [Mass/Vol] 8.9 mg/dL Normal 8.8-10.0 [facility] Comment on above: Performed By: #### L [id number], [id number], TMP254, LAB15, UWT198 ####Environment Friendly Landscape Designer: NIEVES RUIZ ([phone])[facility] ([facility])[address] [place] [address] [place] Chloride [Moles/Vol] 100 mmol/L Normal 98-107 [facility] Comment on above: Performed By: #### L [id number], WOT046, SDI615, LAB15, GKH549 ####Environment Friendly Landscape Designer: NIEVES RUIZ ([phone])[facility])[address] [place] [address] CO2 [Moles/Vol] 20 mmol/L Low 23-31 [facility] Comment on above: Performed By: #### L [id number], FUF524, RIT797, LAB15, AOD962 ####Environment Friendly Landscape Designer: NIEVES RUIZ ([phone])[facility])[address] [place] [address] Creatinine [Mass/Vol] 1.38 mg/dL High 0.57-1.11 [facility] Comment on above: Performed By: #### L [id number], PYG339, ESV911, LAB15, MSN520 ####Environment Friendly Landscape Designer: NIEVES RUIZ ([phone])[facility])[address] [place] [address] GLOMERULAR FILTRATION RATE ML/MIN/1.73 SQ M.PREDICTED 41.5 mL/min/1.73m*2 Low >60.0 [facility] Comment on above: Result Comment: Calc ulation based on the Chronic Kidney Disease Epidemiology Collaboration (CKD-EPI) equation refit without adjustment for race Performed By: #### L [id number], DSM257, ASU642, LAB15, XGM082 ####Environment Friendly Landscape Designer: NIEVES RUIZ ([phone])[facility])[address] [place] [address] Glucose [Mass/Vol] 255 mg/dL High 82-115 [facility] Comment on above: Performed By: #### L UV0036, FUM624, BWC382, LAB15, WKU629 ####Environment Friendly Landscape Designer: NIEVES RUIZ ([id number])[facility])[address] [place] [address] Potassium [Moles/Vol] 4.1 mmol/L Normal 3.5-5.1 [facility] Comment on above: Result Comment: TCPo tential interference from hemolysis Performed By: #### L [id number], SVW418, EGF528, LAB15, DLM818 ####Environment Friendly Landscape Designer: NIEVES RUIZ ([phone])[facility])[address] [place] [address] Sodium [Moles/Vol] 133 mmol/L Low 136-145 [facility] Comment on above: Performed By: #### L IA1989, OTU667, PMO948, LAB15, NKA828 ####Environment Friendly Landscape Designer: NIEVES RUIZ ([phone])[facility] ([facility])[address] [place] [address] Urea nitrogen [Mass/Vol] 31 mg/dL High 9-23 [facility] Comment on above: Performed By: #### L XB2186, LGY378, KJZ861, LAB15, VNZ960 ####Environment Friendly Landscape Designer: NIEVES RUIZ ([phone])[facility] ([facility])[address] [place] [address] BETA HYDROXYBUTYRATEon 11-02 BETA HYDROXYBUTYRATE 24.9 mg/dL High <=2.8 [facility] Comment on above: Performed By: #### L [id number], SRM271, NMV464, LAB15, KVJ845 ####Environment Friendly Landscape Designer: NIEVES RUIZ ([id number])[facility] ([facility])[address] [place] [address] Basic metabolic 1998 panelon 11-02-2024 Anion gap [Moles/Vol] 12 mmol/L 3 - 13 mmol/L [facility] Calcium [Mass/Vol] 8.9 mg/dL 8.8 - 10. 0 mg/dL [facility] Chloride [Moles/Vol] 102 mmol/L 98 - 10 7 mmol/L [facility] CO2 [Moles/Vol] 19 mmol/L Low 23 - 31 mmol/L [facility] Creatinine [Mass/Vol] 1.26 mg/dL High 0.57 - 1.11 mg/dL [facility] GFR/1.73 sq M.predicted (S/P/Bld) [Vol rate/Area] 46.3 mL/min Low - PINF [facility] Comment on above: Calculation based on the Chronic Kidney Disease Epidemiology Collaboration (CKD-EPI) equation refit without adjustment for race Glucose [Mass/Vol] 278 mg/dL High 82 - 115 mg/dL [facility] Interpretation and review of laboratory results Abnormal [facility] Potassium [Moles/Vol] 4.5 mmol/L 3.5 - 5.1 mmol/L [facility] Comment on above: TC Potential interference from hemolysis Sodium [Moles/Vol] 133 mmol/L Low 136 - 145 mmol/L [facility] Urea nitrogen [Mass/Vol] 31 mg/dL High 9 - 23 mg/dL [facility] Anion gap [Moles/Vol] 13 mmol/L 3 - 13 mmol/L [facility] Calcium [Mass/Vol] 8.9 mg/dL 8.8 - 10. 0 mg/dL [facility] Chloride [Moles/Vol] 100 mmol/L 98 - 10 7 mmol/L [facility] CO2 [Moles/Vol] 20 mmol/L Low 23 - 31 mmol/L [facility] Creatinine [Mass/Vol] 1.38 mg/dL High 0.57 - 1.11 mg/dL [facility] GFR/1.73 sq M.predicted (S/P/Bld) [Vol rate/Area] 41.5 mL/min Low - PINF [facility] Comment on above: Calculation based on the Chronic Kidney Disease Epidemiology Collaboration (CKD-EPI) equation refit without adjustment for race Glucose [Mass/Vol] 255 mg/dL High 82 - 115 mg/dL [facility] Potassium [Moles/Vol] 4.1 mmol/L 3.5 - 5.1 mmol/L [facility] Comment on above: TC Potential interference from hemolysis Sodium [Moles/Vol] 133 mmol/L Low 136 - 145 mmol/L [facility] Urea nitrogen [Mass/Vol] 31 mg/dL High 9 - 23 mg/dL [facility] CBC W Auto Differential pane l (Bld)Ordered By: Susanna Veronica on 11-02-2024 Erythrocyte distribution width (RBC) [Ratio] 13.4 % 11.5 - 15.0 % [facility] Hematocrit (Bld) [Volume fraction] 36.2 % 35.0 - 47.0 % [facility] Hemoglobin (Bld) [Mass/Vol] 12.5 g/dL 11.7 - 16.0 g/dL [facility] Interpretation and review of laboratory results Normal [facility] MCH (RBC) [Entitic mass] 28.9 pg 26. 0 - 34.0 pg [facility] MCHC (RBC) [Mass/Vol] 34.5 % 30.5 - 36.0 % [facility] MCV (RBC) [Entitic vol] 83.6 fL 77.0 - 99.0 fL [facility] Platelet mean volume (Bld) [Entitic vol] 12.4 fL 9.0 - 12.7 fL [facility] Platelets (Bld) [#/Vol] 169 10*3/uL 140 - 440 10*3/uL [facility] RBC (Bld) [#/Vol] 4.33 10*6/uL 3.80 - 5.2 0 10*6/uL [facility] WBC (Bld) [#/Vol] 9.5 10*3/uL 3.6 - 10.7 10*3/uL [facility] CBC WITH AUTO DIFFERENTIALon 11-02-2024 Erythrocyte distribution width (RBC) [Ratio] 13.4 % Normal 11.5-15.0 [facility] Comment on above: Performed By: #### L [id number], [id number] ####Environment Friendly Landscape Designer: NIEVES RUIZ ([id number])[address] Hematocrit (Bld) [Volume fraction] 36.2 % Normal 35.0-47.[address] [facility] Comment on above: Performed By: #### L [id number], [id number] ####Environment Friendly Landscape Designer: NIEVES [id number])[address] Hemoglobin (Bld) [Mass/Vol] 12.5 g/dL Normal 11.7-16.[address] [facility] Comment on above: Performed By: #### L [id number], [id number] ####Environment Friendly Landscape Designer: NIEVES RUIZ ([id number])[facility])[address] [place] [address] MCH (RBC) [Entitic mass] 28.9 pg Normal 26.0-34.[address] [facility] Comment on above: Performed By: #### L [id number], [id number] ####Environment Friendly Landscape Designer: NIEVES [id number])[address] MCHC 34.5 % Normal 30.5-36.0 [facility] Comment on above: Performed By: #### L [id number], [id number] ####Environment Friendly Landscape Designer: NIEVES RUIZ ([id number])[facility] ([facility])[address] [place] [address] MCV (RBC) [Entitic vol] 83.6 fL Normal 77.0-99.0 [facility] Comment on above: Performed By: #### L [id number], [id number] ####Environment Friendly Landscape Designer: NIEVES RUIZ ([phone])[facility] ([facility])[address] [place] [address] Platelet mean volume (Bld) [Entitic vol] 12.4 fL Normal 9.0-12.7 [facility] Comment on above: Performed By: #### L [id number], [id number] ####Environment Friendly Landscape Designer: NIEVES RUIZ ([id number])[facility] ([facility])[address] [place] [address] Platelets (Bld) [#/Vol] 169 10*3/uL Normal 140-440 [facility] Comment on above: Performed By: #### L [id number], [id number] ####Environment Friendly Landscape Designer: NIEVES RUIZ ([id number])[facility] ([facility])[address] [place] [address] RBC (Bld) [#/Vol] 4.33 10*6/uL Normal 3.80-5.[address] [facility] Comment on above: Performed By: #### L [id number], [id number] ####Environment Friendly Landscape Designer: NIEVES RUIZ ([phone])[facility])[address] [place] [address] WBC (Bld) [#/Vol] 9.5 10*3/uL Normal 3.6-10.[address] [facility] Comment on above: Performed By: #### L [id number], [id number] ####Environment Friendly Landscape Designer: NIEVES RUIZ ([phone])[facility])[address] [place] [address] Consulton 11-02-2024 Consult Normal [facility] ECG 12-LEADon 11-02-2024 ECG 12-LEAD IMPRESSION: Atrial fibrillation Left anterior fascicular block LVH with secondary repolarization abnormality Anterior Q waves, possibly due to LVH Electronically Signed On 11-02-2024 08:32:22 EDT by Jose Martin Faustin [facility] ECG 12-LEAD IMPRESSION: Atrial fibrillation Left anterior fascicular block LVH with secondary repolarization abnormality Anterior Q waves, possibly due to LVH Electronically Signed On 11-02-2024 08:29:48 EDT by Jose Martin Faustin [facility] ECG 12-LEAD IMPRESSION: Atrial fibrillation Left anterior fascicular block LVH with secondary repolarization abnormality Anterior Q waves, possibly due to LVH Electronically Signed On 11-02-2024 07:24:05 EDT by Cameron Rodriguez Normal [facility] ED Nursing Noteon 11-02-2024 ED Nursing Note Patient awake and alert, IV site intact in the right arm infusing heparin at 9.6units/kg/hr and NS at 75ml/hr. Patient's IV in the LAC removed no longer flushing. Normal [facility] ED Nursing Note Pt to ultrasound Normal [facility] ED Nursing Note Next APTT to be draw n at 1013am. Normal [facility] ED Nursing Note All meds still being verified by pharmacy Normal [facility] ED Nursing Note Dr. Darby has been notified of pt's HR of 130s then will drop to >100 after few seconds via secure chat [facility] HEMOGLOBIN A1Con 11-02-2024 Glucose [Mass/Vol] 324 mg/dL Normal [facility] Comment on above: Result Comment: ORDE R COMMENTS:HbA1c values of 5.7-6.4 percent indicate an increased risk for developing diabetes mellitus. HbA1c values greater than or equal to 6.5 percent are diagnostic of diabetes mellitus. For diagnosis of diabetes in individuals without unequivocal hyperglycemia, results should be confirmed by repeat testing. Performed By: #### L AB90 ####Environment Friendly Landscape Designer: NIEVES RUIZ ([phone])[facility] ([facility])[address] HEMOGLOBIN A1C 12.9 %HbA1C High <5.7 [facility] Comment on above: Result Comment: Norm al less than 5.7%Prediabetes 5.7% to 6.4%Diabetes 6.5% or higher--HgbA1C levels may not be accurate in patients who have renal disease, received recent blood transfusions, are anemic, or who have dyshemoglobinemia. Performed By: #### L AB90 ####Environment Friendly Landscape Designer: NIEVES RUIZ ([phone])[facility] ([facility])[address] Laboratory - Chemistry and C hemistry - challengeon 11-02-2024 Glucose [Mass/Vol] 231 mg/dL High 70 - 100 mg/dL [facility] Glucose [Mass/Vol] 239 mg/dL High 70 - 100 mg/dL [facility] Glucose [Mass/Vol] 298 mg/dL High 70 - 100 mg/dL [facility] Glucose [Mass/Vol] 212 mg/dL High 70 - 100 mg/dL [facility] Average glucose Estimated from glycated hemoglobin (Bld) [Mass/Vol] 324 mg/dL [facility] Glucose [Mass/Vol] 319 mg/dL High 70 - 100 mg/dL [facility] Ammonia (P) [Moles/Vol] 31 umol/L 18 - 72 umol/L [facility] Comment on above: TC Hemolyzed samples should not be used. TSH Qn 3.03 m[IU]/L [facility] Beta hydroxybutyrate [Mass/Vol] 24.9 mg/dL High NINF - 2.8 mg/dL [facility] Magnesium [Mass/Vol] 1.8 mg/dL 1.6 - 2 .6 mg/dL [facility] Laboratory - Drug toxicology on 11-02-2024 Amphetamines Screen method >1000 ng/mL Ql (U) Negative [facility] Barbiturates Screen method >200 ng/mL Ql (U) Negative [facility] Benzodiazepines Ql (U) Negative [facility] Methadone Screen Ql (U) Negative [facility] Opiates Screen Ql (U) Negative [facility] oxyCODONE Ql (U) Negative [facility] Phencyclidine Ql (U) Negative [facility] Laboratory - Hematology and Cell countson 11-02-2024 HbA1c (Bld) [Mass fraction] 12.9 % [facility] Comment on above: Normal less than 5.7 % Prediabetes 5.7% to 6.4% Diabetes 6.5% or higher --HgbA1C levels may not be accurate in patients who have renal disease, received recent blood transfusions, are anemic, or who have dyshemoglobinemia. Band form neutrophils (Bld) [#/Vol] 0.7 10*3/uL High NINF - 0.0 10*3/uL [facility] Band form neutrophils/100 WBC (Bld) 7 % High NINF - 0 % [facility] Eosinophils (Bld) [#/Vol] 0.1 10*3/uL 0. 0 - 0.5 10*3/uL [facility] Eosinophils/100 WBC (Bld) 1 % 0 - 6 % [facility] Lymphocytes (Bld) [#/Vol] 0.8 10*3/uL Low 1. 0 - 4.3 10*3/uL [facility] Lymphocytes/100 WBC (Bld) 8 % Low 15 - 45 % [facility] Metamyelocytes (Bld) [#/Vol] 0.1 10*3/uL High NINF - 0.0 10*3/uL [facility] Metamyelocytes/100 WBC (Bld) 1 % High [facility] Monocytes (Bld) [#/Vol] 0.4 10*3/uL 0.0 - 0.9 10*3/uL [facility] Monocytes/100 WBC (Bld) 4 % Low 5 - 13 % [facility] Neutrophils (Bld) [#/Vol] 8.2 10*3/uL High 1. 8 - 7.5 10*3/uL [facility] Polychromasia LM Ql (Bld) Slight Abnormal (none) [facility] RBC morphology finding Nom (Bld) abnormal [facility] Segmented neutrophils/100 WBC (Bld) 79 % 38 - 82 % [facility] MAGNESIUMon 11-02-2024 Magnesium [Mass/Vol] 1.8 mg/dL Normal 1.6-2.6 [facility] Comment on above: Result Comment: SUNG Bryan COMMENTS:Higher values can be expected in females during menses. Performed By: #### L [id number], [id number], WMS393, LAB15, [id number] ####Environment Friendly Landscape Designer: NIEVES RUIZ ([phone])[facility] [facility] ([facility])[address] [place] [address] MANUAL DIFFERENTIAL (CELLAVI AILYN)on 11-02-2024 BAND NEUTROPHILS TOTAL PER COUNTED LEUKOCYTES BY MANUAL COUNT [address] [facility] Comment on above: Performed By: #### L [id number], [id number] ####Environment Friendly Landscape Designer: NIEVES RUIZ ([phone])[facility] ([facility])[address] [place] [address] BANDS (10*3/UL) IN BLOOD-CELLAVISION 0.7 10*3/uL High <=0.[address] [facility] Comment on above: Performed By: #### L [id number], [id number] ####Environment Friendly Landscape Designer: NIEVES RUIZ ([phone])[facility] ([facility])[address] [place] [address] [place] BASOPHILS TOTAL PER COUNTED LEUKOCYTES BY MANUAL COUNT Normal [facility] Comment on above: Performed By: #### L [id number], [id number] ####Environment Friendly Landscape Designer: NIEVES RUIZ ([phone])[facility])[address] [place] [address] BLASTS TOTAL PER COUNTED LEUKOCYTES BY MANUAL COUNT Normal [facility] Comment on above: Performed By: #### L [id number], [id number] ####Environment Friendly Landscape Designer: NIEVES RUIZ ([phone])[facility])[address] [place] [address] EOSINOPHILS (10*3/UL) IN BLOOD-CELLAVISION 0.1 10*3/uL Normal 0.0-0.[address] [facility] Comment on above: Performed By: #### L [id number], [id number] ####Environment Friendly Landscape Designer: NIEVES RUIZ ([phone])[facility])[address] [place] [address] [place] EOSINOPHILS TOTAL PER COUNTED LEUKOCYTES BY MANUAL COUNT 1 Normal 0-[address] [facility] Comment on above: Performed By: #### L [id number], [id number] ####Environment Friendly Landscape Designer: NIEVES RUIZ ([phone])[facility] [place] [address] [place] EOSINOPHILS/100 LEUKOCYTES IN BLOOD-CELLAVISION 1 % Normal 0-[address] [facility] Comment on above: Performed By: #### L [id number], [id number] ####Environment Friendly Landscape Designer: NIEVES RUIZ ([phone])[facility] ([facility])[address] [place] [address] [place] LYMPHOCYTES (10*3/UL) IN BLOOD-CELLAVISION 0.8 10*3/uL Low 1.0-4.[address] [facility] Comment on above: Performed By: #### L [id number], [id number] ####Environment Friendly Landscape Designer: NIEVES RUIZ ([phone])[facility] ([facility])[address] [place] [address] [place] LYMPHOCYTES TOTAL PER COUNTED LEUKOCYTES BY MANUAL COUNT [address] [facility] Comment on above: Performed By: #### L [id number], [id number] ####Environment Friendly Landscape Designer: NIEVES RUIZ ([phone])[facility] ([facility])[address] [place] [address] [place] LYMPHOCYTES/100 LEUKOCYTES IN BLOOD-CELLAVISION 8 % Low 15-[address] [facility] Comment on above: Performed By: #### L [id number], [id number] ####Environment Friendly Landscape Designer: NIEVES RUIZ ([phone])[facility] ([facility])[address] [place] [address] [place] METAMYELOCYTES (10*3/UL) IN BLOOD-CELLAVISION 0.1 10*3/uL High <=0.0 [facility] Comment on above: Performed By: #### L [id number], [id number] ####Environment Friendly Landscape Designer: NIEVES RUIZ ([phone])[facility] ([facility])[address] [place] [address] [place] METAMYELOCYTES TOTAL PER COUNTED LEUKOCYTES BY MANUAL COUNT [address] [facility] Comment on above: Performed By: #### L [id number], [id number] ####Environment Friendly Landscape Designer: NIEVES RUIZ ([phone])[facility])[address] [place] [address] [place] METAMYELOCYTES/100 LEUKOCYTES IN BLOOD-CELLAVISION 1 % High <=[address] [facility] Comment on above: Performed By: #### L [id number], [id number] ####Environment Friendly Landscape Designer: NIEVES RUIZ ([phone])[facility])[address] [place] [address] MONOCYTES (10*3/UL) IN BLOOD-CELLAVISION 0.4 10*3/uL Normal 0.0-0.[address] [facility] Comment on above: Performed By: #### L [id number], [id number] ####Environment Friendly Landscape Designer: NIEVES RUIZ ([phone])[facility])[address] [place] [address] MONOCYTES TOTAL PER COUNTED LEUKOCYTES BY MANUAL COUNT [address] [facility] Comment on above: Performed By: #### L [id number], [id number] ####Environment Friendly Landscape Designer: NIEVES RUIZ ([phone])[facility])[address] [place] [address] [place] MONOCYTES/100 LEUKOCYTES IN BLOOD-DANY 4 % Low 5-[address] [facility] Comment on above: Performed By: #### L [id number], [id number] ####Environment Friendly Landscape Designer: NIEVES RUIZ ([phone])[facility])[address] [place] [address] MYELOCYTES COUNTED BY MANUAL COUNT Normal [facility] Comment on above: Performed By: #### L [id number], [id number] ####Environment Friendly Landscape Designer: NIEVES RUIZ ([phone])[facility])[address] [place] [address] NEUTROPHILS BAND FORM/100 LEUKOCYTES IN BLOOD-CELLAVISI 7 % High <=[address] [facility] Comment on above: Performed By: #### L [id number], [id number] ####Environment Friendly Landscape Designer: NIEVES [phone])[facility] ([facility])[address] [place] [address] [place] NEUTROPHILS TOTAL PER COUNTED LEUKOCYTES BY MANUAL COUNT [address] [facility] Comment on above: Performed By: #### L [id number], [id number] ####Environment Friendly Landscape Designer: NIEVES RUIZ ([phone])[facility] ([facility])[address] [place] [address] POLYCHROMASIA IN BLOOD BY LIGHT MICROSCOPY Slight Abnormal (none) [facility] Comment on above: Performed By: #### L [id number], [id number] ####Environment Friendly Landscape Designer: NIEVES RUIZ ([phone])[facility] [place] [address] [place] PROMYELOCYTES TOTAL PER COUNTED LEUKOCYTES BY MANUAL COUNT Normal [facility] Comment on above: Performed By: #### L [id number], [id number] ####Environment Friendly Landscape Designer: NIEVES RUIZ ([phone])[facility])[address] [place] [address] RBC MORPHOLOGY IN BLOOD abnormal Normal [facility] Comment on above: Performed By: #### L [id number], [id number] ####Environment Friendly Landscape Designer: NIEVES RUIZ ([phone])[facility] [place] [address] [place] SEGMENTED NEUTROPHILS (10*3/UL) IN BLOOD-CELLAVISION 8.2 10*3/uL High 1.8-7.5 [facility] Comment on above: Performed By: #### L [id number], [id number] ####Environment Friendly Landscape Designer: NIEVES RUIZ ([phone])[facility] [place] [address] [place] SEGMENTED NEUTROPHILS/100 LEUKOCYTES-CE 79 % Normal 38-82 [facility] Comment on above: Performed By: #### L [id number], [id number] ####Environment Friendly Landscape Designer: NIEVES RUIZ ([phone])[facility] [place] [address] [place] UNCLASSIFIED CELLS TOTAL PER COUNTED LEUKOCYTES BY MANUAL COUNT [facility] Comment on above: Performed By: #### L [id number], [id number] ####Environment Friendly Landscape Designer: NIEVES RUIZ ([phone])[facility] [place] [address] VARIANT LYMPHOCYTES TOTAL PER COUNTED LEUKOCYTES BY MANUAL COUNT Normal [facility] Comment on above: Performed By: #### L [id number], [id number] ####Environment Friendly Landscape Designer: NIEVES RUIZ ([phone])[facility])[address] [place] [address] Magnesium [Mass/Vol]on 11-02 Higher values can be expected in females during menses. [facility] No Panel Informationon 11-02 Interpretation and review of laboratory results Abnormal [facility] Performed by: [facility], [address] [place] [address] CLIA ID: [id number] [facility] Interpretation and review of laboratory results Abnormal [facility] Performed by: [facility], [address] [place] [address] CLIA ID: [id number] [facility] Interpretation and review of laboratory results Abnormal [facility] Performed by: [facility], [address] [place] [address] CLIA ID: [id number] [facility] Interpretation and review of laboratory results Abnormal [facility] Performed by: [facility], [address] [place] [address] CLIA ID: [id number] [facility] Interpretation and review of laboratory results Abnormal [facility] HbA1c values of 5.7-6.4 percent indicate an increased risk for developing diabetes mellitus. HbA1c values greater than or equal to 6.5 percent are diagnostic of diabetes mellitus. For diagnosis of diabetes in individuals without unequivocal hyperglycemia, results should be confirmed by repeat testing. [facility] P [place] 0 degrees [facility] RI Interval 0 ms [facility] QRS [place] -49 degrees [facility] QRSD Interval 110 ms [facility]val 365 ms [facility] QTC Interval 463 ms [facility] T Wave [place] 98 degrees [facility] Atrial fibrillation Left anterior fascicular block LVH with secondary repolarization abnormality Anterior Q waves, possibly due to LVH Electronically Signed On 11-02-2024 08:32:22 EDT by Jose Martin Faustin Jose Martin Perez MD - 11/02/2024 IMPRESSION: Atrial fibrillation Left anterior fascicular block LVH with secondary repolarization abnormality Anterior Q waves, possibly due to LVH Electronically Signed On 11-02-2024 08:32:22 EDT by Jose Martin Faustin [facility] Atrial fibrillation Left anterior fascicular block LVH with secondary repolarization abnormality Anterior Q waves, possibly due to LVH Electronically Signed On 11-02-2024 08:29:48 EDT by Jose Martin Faustin Jose Martin Perez MD - 11/02/2024 IMPRESSION: Atrial fibrillation Left anterior fascicular block LVH with secondary repolarization abnormality Anterior Q waves, possibly due to LVH Electronically Signed On 11-02-2024 08:29:48 EDT by Jose Martin Francoisowell [facility] Interpretation and review of laboratory results Abnormal [facility] Performed by: [facility], [address] [place] [address] CLIA ID: [id number] [facility] Atrial fibrillation Left anterior fascicular block LVH with secondary repolarization abnormality Anterior Q waves, possibly due to LVH Electronically Signed On 11-02-2024 07:24:05 EDT by Cameron Rey MD - 11/02/2024 IMPRESSION: Atrial fibrillation Left anterior fascicular block LVH with secondary repolarization abnormality Anterior Q waves, possibly due to LVH Electronically Signed On 11-02-2024 07:24:05 EDT by Cameron Doradohta [facility] Interpretation and review of laboratory results Normal [facility] Atypical Lymphocytes Manual [facility] Bands Manual 7 [facility] Basophils Manual [facility] Blasts [facility] Eosinophils Manual 1 0 - 1 [facility] Interpretation and review of laboratory results Abnormal [facility] Heal th Lymphocytes Manual 8 [facility] Metamyelocytes Manual 1 [facility] Monocytes Manual 4 [facility] He alth Myelocytes Manual [facility] ealth Neutrophils Manual 80 [facility] Promyelocytes Manual [facility] Unclassified Cells, Manual [facility] COCAINE METAB. SCREEN Negative [facility] FENTANYL SCREEN, UR QUAL Negative [facility] The expected value for all of the [...] is needed, request confirmation under separate order. [facility] Interpretation and review of laboratory results Normal [facility] Interpretation and review of laboratory results Abnormal [facility] 4h Troponin HS (Serial 3rd Troponin) 128 ng/L High NINF - 14 ng/L [facility] Comment on above: Rising or falling tr oponin delta below 2 ng/L as compared to 2h troponin value suggests that acute cardiac injury is unlikely. Interpretation and review of laboratory results Abnormal [facility] No Panel InformationOrdered By: Jose Martin Faustin on 11-02-2024 P [place] 0 degrees [facility] Work Phone: RI Interval 0 ms [facility] Work Phone: QRS [place] -49 degrees [facility] Work Phone: QRSD Interval 102 ms [facility] h Work Phone: QT Interval 331 ms [facility] Work Phone: QTC Interval 460 ms [facility] Work Phone: T Wave [place] 113 degrees [facility] Work Phone: [facility] Work Phone: No Panel InformationOrdered By: Cameron Rodriguez on 11-02-2024 P [place] 0 degrees [facility] Work Phone: RI Interval 0 ms [facility] Work Phone: QRS [place] -50 degrees [facility] Work Phone: QRSD Interval 94 ms [facility] Work Phone: QT Interval 297 ms [facility] Health Work Phone: QTC Interval 453 ms [facility] Health Work Phone: T Wave [place] 88 degrees [facility] Work Phone: [facility] Work Phone: Nursing Noteon 11-02-2024 Nursing Note Normal [facility] PHOSPHORUSon 11-02-2024 Phosphate [Mass/Vol] 2.8 mg/dL Normal 2.3-4.7 [facility] Comment on above: Performed By: #### L [id number], [id number], [id number], LAB15, [id number] ####Environment Friendly Landscape Designer: NIEVES RUIZ ([phone])[facility] ([facility])[address] [place] [address] [place] Phosphate [Moles/Vol]on 10-21 Phosphate [Mass/Vol] 2.8 mg/dL 2.3 - 4 .7 mg/dL [facility] Progress Noteon 11-02-2024 Progress Note Normal [facility] Progress Note Normal [facility] THYROID STIMULATING HORMONEo n 11-02-2024 THYROID STIMULATING HORMONE 3.03 uIU/mL Normal 0.35-4.[address] [facility] Comment on above: Performed By: #### L [id number], [id number], [id number], LAB15, [id number] ####Environment Friendly Landscape Designer: NIEVES RUIZ ([phone])[facility])[address] [place] [address] [place] TSH Qnon 11-02-2024 Interpretation and review of laboratory results Normal [facility] US Kidneyon 11-02-2024 Impression: 1. Mildly increased bilateral renal echotexture; correlate with chronic medical renal disease. 2. Tiny, nonspecific amount of bilateral perinephric free fluid. Report Dictated on Electronically Signed By: Ricky Barfield MD Electronically Signed Date/Time: 11/02/2024 7:57 AM EDT [facility] Patient Name: DAMEON POTTER : 1955 [...] no gross evidence of bladder wall thickening. [facility] Ricky Barfield MD - 11/02/2024 Patient Name: [...] Electronically Signed Date/Time: 11/02/2024 7:57 AM EDT [facility] Radiology Study observation (narrative) [facility] US KidneyOrdered By: Ricky perry on 11-02-2024 [employer] Work Phone: US RENAL COMPLETEon 11-03-19 25 US RENAL COMPLETE Normal [facility] Vital signson 11-02-2024 Heart rate 97 /min bpm [facility] Vital signsOrdered By: Jose Martin Faustin on 11-02-2024 Heart rate 116 /min bpm [facility] Phone: Vital signsOrdered By: Concepcion Rodriguez on 11-02-2024 Heart rate 139 /min bpm [facility] Phone: aPTT Coag (Bld) [Time]on aPTT Coag (PPP) [Time] 21.1 s 20.0 - 30.5 s [facility] Interpretation and review of laboratory results Normal [facility] NOTE: The therapeuti c time for Heparin anticoagulation, based on Xa activity inhibition, is an APTT of 46-80 seconds. [facility] 36on 11-01-2024 36 Normal [facility] BASIC METABOLIC PANELon 10-21 Anion gap [Moles/Vol] 15 mmol/L High 3-13 [facility] Comment on above: Performed By: #### L [id number], [id number], LAB15 ####Environment Friendly Landscape Designer: NIEVES RUIZ ([phone])[facility] ([address] Calcium [Mass/Vol] 8.9 mg/dL Normal 8.8-10.0 [facility] Comment on above: Result Comment: TCPo tential interference from lipemia Performed By: #### L [id number], [id number], LAB15 ####Environment Friendly Landscape Designer: NIEVES RUIZ ([phone])[facility] ([facility])[address] [place] [address] [place] Chloride [Moles/Vol] 102 mmol/L Normal 98-107 [facility] Comment on above: Performed By: #### L [id number], [id number], LAB15 ####Environment Friendly Landscape Designer: NIEVSE RUIZ ([phone])[facility] ([facility])[address] [place] [address] CO2 [Moles/Vol] 17 mmol/L Low 23-31 [facility] Comment on above: Performed By: #### Wayne RAY6, [id number], LAB15 ####Environment Friendly Landscape Designer: NIEVES RUIZ ([phone])[facility] ([facility])[address] [place] [address] Creatinine [Mass/Vol] 1.43 mg/dL High 0.57-1.11 [facility] Comment on above: Result Comment: TCPo tential interference from lipemia Performed By: #### Wayne RAY6, [id number], LAB15 ####Environment Friendly Landscape Designer: NIEVES RUIZ ([phone])[facility] ([facility])[address] [place] [address] [place] GLOMERULAR FILTRATION RATE ML/MIN/1.73 SQ M.PREDICTED 39.8 mL/min/1.73m*2 Low >60.0 [facility] Comment on above: Result Comment: Calc ulation based on the Chronic Kidney Disease Epidemiology Collaboration (CKD-EPI) equation refit without adjustment for race Performed By: #### L [id number], [id number], LAB15 ####Environment Friendly Landscape Designer: NIEVES RUIZ ([phone])[facility] ([facility])[address] [place] [address] [place] Glucose [Mass/Vol] 276 mg/dL High 82-115 [facility] Comment on above: Performed By: #### L [id number], [id number], LAB15 ####Environment Friendly Landscape Designer: NIEVES RUIZ ([phone])[facility])[address] [place] [address] Potassium [Moles/Vol] 3.7 mmol/L Normal 3.5-5.1 [facility] Comment on above: Performed By: #### L [id number], [id number], LAB15 ####Environment Friendly Landscape Designer: NIEVES RUIZ ([phone])[facility] ([facility])[address] [place] [address] Sodium [Moles/Vol] 134 mmol/L Low 136-145 [facility] Comment on above: Performed By: #### L [id number], [id number], LAB15 ####Environment Friendly Landscape Designer: NIEVES RUIZ ([phone])[facility])[address] [place] [address] Urea nitrogen [Mass/Vol] 31 mg/dL High 9-23 [facility] Comment on above: Performed By: #### L [id number], [id number], LAB15 ####Environment Friendly Landscape Designer: NIEVES RUIZ ([phone])[facility])[address] [place] [address] BETA HYDROXYBUTYRATEon 11-01 BETA HYDROXYBUTYRATE 21.0 mg/dL High <=2.8 [facility] Comment on above: Performed By: #### L [id number], [id number], LAB15 ####Environment Friendly Landscape Designer: NIEVES RUIZ ([phone])[facility])[address] [place] [address] BETA HYDROXYBUTYRATE 50.7 mg/dL High <=2.8 [facility] Comment on above: Performed By: #### L AB113, [id number], LAB99, KTE462, KLT171, RJP327, LAB17, [id number] ####Environment Friendly Landscape Designer: NIEVES RUIZ ([phone])[facility])[address] [place] [address] BLOOD GAS, VENOUSon 11-02-19 25 AMOUNT OF OXYGEN Normal [facility] Comment on above: Result Comment: SUNG Bryan COMMENTS:Assessment of oxygenation is best done with an arterial blood gas determination. Reference ranges for pO2, bicarbonate, and base excess are for mixed venous blood. Specimens drawn from a peripheral vein will often have higher values. Performed By: #### L AB79 ####Environment Friendly Landscape Designer: NIEVES RUIZ ([phone])[facility])[address] [place] [address] Base excess Calc (BldV) [Moles/Vol] -6.1000 mmol/L Low -3.0-3.0 [facility] Comment on above: Performed By: #### L AB79 ####Environment Friendly Landscape Designer: NIEVES RUIZ ([phone])[facility])[address] [place] [address] CO2 [Moles/Vol] 18.0 mmol/L Low 24.0-28.0 [facility] Comment on above: Performed By: #### L AB79 ####Environment Friendly Landscape Designer: NIEVES RUIZ ([phone])[facility])[address] [place] [address] HCO3 (Bld) [Moles/Vol] 17.2 mmol/L Low 23.0-27.0 [facility] Comment on above: Performed By: #### L AB79 ####Environment Friendly Landscape Designer: NIEVES RUIZ ([phone])[facility])[address] [place] [address] Hemoglobin (Bld) [Mass/Vol] 14.2 g/dL Normal Screen only [facility] Comment on above: Performed By: #### L AB79 ####Environment Friendly Landscape Designer: NIEVES RUIZ ([phone])[facility])[address] [place] [address] OXYGEN (MM HG) IN VENOUS BLOOD 42.3 mm Hg Normal [facility] Comment on above: Performed By: #### L AB79 ####Environment Friendly Landscape Designer: NIEVES RUIZ ([phone])[facility])[address] [place] [address] OXYGEN SATURATION (%) IN VENOUS BLOOD 75.8 % Normal [facility] Comment on above: Performed By: #### L AB79 ####Environment Friendly Landscape Designer: NIEVES RUIZ ([phone])[facility] ([facility])[address] [place] [address] PCO2, WAQAR 28.2 mm Hg Low 40.0-55.0 [facility] Comment on above: Performed By: #### L AB79 ####Environment Friendly Landscape Designer: NIEVES RUIZ ([phone])[facility] ([facility])[address] [place] [address] PH VENOUS 7.402 Normal 7.330-7.430 [facility] Comment on above: Performed By: #### L [id number] ####Environment Friendly Landscape Designer: NIEVES RUIZ ([phone])[facility] ([facility])[address] [place] [address] SOURCE OF OXYGEN None (Room Air) Normal [facility] Comment on above: Performed By: #### L AB79 ####Environment Friendly Landscape Designer: NIEVES RUIZ ([phone])[facility] ([facility])[address] [place] [address] Basic metabolic 1998 panelOr dered By: Shi Fowler on 11-01-2024 Anion gap [Moles/Vol] 15 mmol/L High 3 - 13 mmol/L [facility] Calcium [Mass/Vol] 8.9 mg/dL 8.8 - 10. 0 mg/dL [facility] Comment on above: TC Potential interference from lipemia Chloride [Moles/Vol] 102 mmol/L 98 - 10 7 mmol/L [facility] CO2 [Moles/Vol] 17 mmol/L Low 23 - 31 mmol/L [facility] Creatinine [Mass/Vol] 1.43 mg/dL High 0.57 - 1.11 mg/dL [facility] Comment on above: TC Potential interference from lipemia GFR/1.73 sq M.predicted (S/P/Bld) [Vol rate/Area] 39.8 mL/min Low - PINF [facility] Comment on above: Calculation based on the Chronic Kidney Disease Epidemiology Collaboration (CKD-EPI) equation refit without adjustment for race Glucose [Mass/Vol] 276 mg/dL High 82 - 115 mg/dL [facility] Interpretation and review of laboratory results Abnormal [facility] Potassium [Moles/Vol] 3.7 mmol/L 3.5 - 5.1 mmol/L [facility] Sodium [Moles/Vol] 134 mmol/L Low 136 - 145 mmol/L [facility] Urea nitrogen [Mass/Vol] 31 mg/dL High 9 - 23 mg/dL [facility] CBC W Auto Differential pane l (Bld)Ordered By: Ebony Thompson on 11-01-2024 Basophils (Bld) [#/Vol] 0 10*3/uL 0.0 - 0.2 10*3/uL [facility] Basophils/100 WBC (Bld) 0.3 % 0.0 - 2.0 % [facility] Eosinophils (Bld) [#/Vol] 0 10*3/uL 0. 0 - 0.5 10*3/uL [facility] Eosinophils/100 WBC (Bld) 0.1 % 0.0 - 6.0 % [facility] Erythrocyte distribution width (RBC) [Ratio] 13.4 % 11.5 - 15.0 % [facility] Hematocrit (Bld) [Volume fraction] 39.5 % 35.0 - 47.0 % [facility] Hemoglobin (Bld) [Mass/Vol] 13.6 g/dL 11.7 - 16.0 g/dL [facility] Immature granulocytes (Bld) [#/Vol] 0.1 10*3/uL High NINF - 0.1 10*3/uL [facility] Immature granulocytes/100 WBC (Bld) 0.5 % 0.0 - 2.0 % [facility] Interpretation and review of laboratory results Abnormal [facility] Lymphocytes (Bld) [#/Vol] 0.4 10*3/uL Low 1. 0 - 4.3 10*3/uL [facility] Lymphocytes/100 WBC (Bld) 4.1 % Low 15 .0 - 45.0 % [facility] MCH (RBC) [Entitic mass] 29 pg 26. 0 - 34.0 pg [facility] MCHC (RBC) [Mass/Vol] 34.4 % 30.5 - 36.0 % [facility] MCV (RBC) [Entitic vol] 84.2 fL 77.0 - 99.0 fL [facility] Monocytes (Bld) [#/Vol] 0.7 10*3/uL 0.0 - 0.9 10*3/uL [facility] Monocytes/100 WBC (Bld) 6.7 % 5.0 - 13.0 % [facility] Neutrophils (Bld) [#/Vol] 8.9 10*3/uL High 1. 8 - 7.5 10*3/uL [facility] Neutrophils/100 WBC (Bld) 88.3 % High 38 .0 - 82.0 % [facility] Nucleated RBC/100 WBC (Bld) [Ratio] 0 % [facility] Platelet mean volume (Bld) [Entitic vol] 12.6 fL 9.0 - 12.7 fL [facility] Platelets (Bld) [#/Vol] 191 10*3/uL 140 - 440 10*3/uL [facility] RBC (Bld) [#/Vol] 4.69 10*6/uL 3.80 - 5.2 0 10*6/uL [facility] WBC (Bld) [#/Vol] 10.1 10*3/uL 3.6 - 10.7 10*3/uL [facility] CBC WITH AUTO DIFFERENTIALon 11-01-2024 Basophils (Bld) [#/Vol] 0.0 10*3/uL Normal 0.0-0.[address] [facility] Comment on above: Performed By: #### L [id number] ####Environment Friendly Landscape Designer: NIEVES [id number])[facility])[address] [place] [address] Basophils/100 WBC (Bld) 0.3 % Normal 0.0-2.0 [facility] Comment on above: Performed By: #### L [id number] ####Environment Friendly Landscape Designer: NIEVES [id number])[facility] ([facility])[address] [place] [address] Eosinophils (Bld) [#/Vol] 0.0 10*3/uL Normal 0.0-0.[address] [facility] Comment on above: Performed By: #### L [id number] ####Environment Friendly Landscape Designer: NIEVES [id number])[facility])[address] [place] [address] Eosinophils/100 WBC (Bld) 0.1 % Normal 0.0-6.[address] [facility] Comment on above: Performed By: #### L [id number] ####Environment Friendly Landscape Designer: NIEVES RUIZ ([phone])[facility])[address] [place] [address] Erythrocyte distribution width (RBC) [Ratio] 13.4 % Normal 11.5-15.[address] [facility] Comment on above: Performed By: #### L [id number] ####Environment Friendly Landscape Designer: NIEVES RUIZ ([phone])[facility])[address] [place] [address] Hematocrit (Bld) [Volume fraction] 39.5 % Normal 35.0-47.[address] [facility] Comment on above: Performed By: #### L [id number] ####Environment Friendly Landscape Designer: NIEVES RUIZ ([phone])[facility])[address] [place] [address] Hemoglobin (Bld) [Mass/Vol] 13.6 g/dL Normal 11.7-16.[address] [facility] Comment on above: Performed By: #### L [id number] ####Environment Friendly Landscape Designer: NIEVES RUIZ ([phone])[facility])[address] [place] [address] IMMATURE GRANS % 0.5 % Normal 0.0-2.0 [facility] Comment on above: Performed By: #### L [id number] ####Environment Friendly Landscape Designer: NIEVES RUIZ ([phone])[facility])[address] [place] [address] IMMATURE GRANS ABSOLUTE 0.1 10*3/uL High <0.[address] [facility] Comment on above: Performed By: #### L [id number] ####Environment Friendly Landscape Designer: NIEVES RUIZ ([phone])[facility])[address] [place] [address] Lymphocytes (Bld) [#/Vol] 0.4 10*3/uL Low 1.0-4.[address] [facility] Comment on above: Performed By: #### L [id number] ####Environment Friendly Landscape Designer: NIEVES RUIZ ([phone])[facility])[address] [place] [address] Lymphocytes/100 WBC (Bld) 4.1 % Low 15.0-45.[address] [facility] Comment on above: Performed By: #### L [id number] ####Environment Friendly Landscape Designer: NIEVES RUIZ ([phone])[facility])[address] [place] [address] MCH (RBC) [Entitic mass] 29.0 pg Normal 26.0-34.[address] [facility] Comment on above: Performed By: #### L [id number] ####Environment Friendly Landscape Designer: NIEVES RUIZ ([phone])[facility])[address] [place] [address] MCHC 34.4 % Normal 30.5-36.[address] [facility] Comment on above: Performed By: #### L [id number] ####Environment Friendly Landscape Designer: NIEVES RUIZ ([phone])[facility])[address] [place] [address] MCV (RBC) [Entitic vol] 84.2 fL Normal 77.0-99.0 [facility] Comment on above: Performed By: #### L [id number] ####Environment Friendly Landscape Designer: NIEVES RUIZ ([phone])[facility])[address] [place] [address] Monocytes (Bld) [#/Vol] 0.7 10*3/uL Normal 0.0-0.[address] [facility] Comment on above: Performed By: #### L [id number] ####Environment Friendly Landscape Designer: NIEVES RUIZ ([phone])[facility])[address] [place] [address] Monocytes/100 WBC (Bld) 6.7 % Normal 5.0-13.0 [facility] Comment on above: Performed By: #### L [id number] ####Environment Friendly Landscape Designer: NIEVES RUIZ ([phone])[facility] ([facility])[address] [place] [address] NEUTROPHILS ABSOLUTE 8.9 10*3/uL High 1.8-7.5 [facility] Comment on above: Performed By: #### L [id number] ####Environment Friendly Landscape Designer: NIEVES RUIZ ([phone])[facility] ([facility])[address] [place] [address] Neutrophils/100 WBC (Bld) 88.3 % High 38.0-82.0 [facility] Comment on above: Performed By: #### L [id number] ####Environment Friendly Landscape Designer: NIEVES RUIZ ([phone])[facility] ([facility])[address] [place] [address] NRBC 0.0 /100 WBCs Normal 0.0-2.0 [facility] Comment on above: Performed By: #### L [id number] ####Environment Friendly Landscape Designer: NIEVES RUIZ ([phone])[facility] ([facility])[address] [place] [address] Platelet mean volume (Bld) [Entitic vol] 12.6 fL Normal 9.0-12.7 [facility] Comment on above: Performed By: #### L [id number] ####Environment Friendly Landscape Designer: NIEVES RUIZ ([phone])[facility] ([facility])[address] [place] [address] [place] Platelets (Bld) [#/Vol] 191 10*3/uL Normal 140-[address] [facility] Comment on above: Performed By: #### L [id number] ####Environment Friendly Landscape Designer: NIEVES RUIZ ([phone])[facility] ([facility])[address] [place] [address] RBC (Bld) [#/Vol] 4.69 10*6/uL Normal 3.80-5.20 [facility] Comment on above: Performed By: #### L [id number] ####Environment Friendly Landscape Designer: NIEVES RUIZ ([phone])[facility])[address] [place] [address] WBC (Bld) [#/Vol] 10.1 10*3/uL Normal 3.6-10.[address] [facility] Comment on above: Performed By: #### L [id number] ####Environment Friendly Landscape Designer: NIEVES RUIZ ([phone])[facility])[address] [place] [address] COMPLETE URINALYSISon 2024 BACTERIA (#/HPF) IN URINE Moderate Abnormal Negative [facility] Comment on above: Performed By: #### L [id number], [id number] ####Environment Friendly Landscape Designer: NIEVES RUIZ ([phone])[facility])[address] [place] [address] BILIRUBIN, TOTAL PRESENCE IN URINE Negative Normal Negative [facility] Comment on above: Performed By: #### L [id number], [id number] ####Environment Friendly Landscape Designer: NIEVES RUIZ ([phone])[facility] ([facility])[address] [place] [address] Clarity (U) Turbid Abnormal Clear [facility] Comment on above: Performed By: #### L [id number], [id number] ####Environment Friendly Landscape Designer: NIEVES RUIZ ([phone])[facility])[address] [place] [address] Color (U) Yellow Normal Lt. Yellow [facility] Comment on above: Performed By: #### L [id number], [id number] ####Environment Friendly Landscape Designer: NIEVES RUIZ ([phone])[facility] ([facility])[address] [place] [address] GLUCOSE (MG/DL) IN URINE >1,000 Abnormal Nor mal (<70) [facility] Comment on above: Performed By: #### L [id number], [id number] ####Environment Friendly Landscape Designer: NIEVES RUIZ ([phone])[facility] ([facility])[address] [place] [address] HEMOGLOBIN PRESENCE IN URINE 0.2 mg/dL Abnormal Negative [facility] Comment on above: Performed By: #### L [id number], [id number] ####Environment Friendly Landscape Designer: NIEVES RUIZ ([phone])[facility] [place] [address] [place] HYALINE CASTS (#/LPF) IN URINE SEDIMENT BY MICROSCOPY 3-[address] [facility] Comment on above: Performed By: #### L [id number], [id number] ####Environment Friendly Landscape Designer: NIEVES RUIZ ([phone])[facility] [place] [address] Ketones Ql (U) 20 mg/dL Abnormal Negative [facility] Comment on above: Performed By: #### L AB347, [id number] ####Environment Friendly Landscape Designer: NIEVES RUIZ ([phone])[facility] ([facility])[address] [place] [address] LEUKOCYTE ESTERASE PRESENCE IN URINE BY TEST STRIP 500 Rad/uL Abnormal Negative [facility] Comment on above: Performed By: #### L AB347, [id number] ####Environment Friendly Landscape Designer: NIEVES RUIZ ([phone])[facility] [place] [address] [place] MUCUS (#/LPF) IN URINE SEDIMENT Few Normal Negative [facility] Comment on above: Performed By: #### L [id number], [id number] ####Environment Friendly Landscape Designer: NIEVES RUIZ ([phone])[facility] ([facility])[address] [place] [address] NITRITE PRESENCE IN URINE Negative Normal Negative [facility] Comment on above: Performed By: #### L AB347, [id number] ####Environment Friendly Landscape Designer: NIEVES RUIZ ([phone])[facility] ([facility])[address] [place] [address] pH (U) 5.5 [pH] Normal 5.0-8.[address] [facility] Comment on above: Performed By: #### L AB347, ZQG539 ####Environment Friendly Landscape Designer: NIEVES RUIZ ([phone])[facility] ([facility])[address] [place] [address] [place] Protein (U) [Mass/Vol] 100 mg/dL Abnormal Negative [facility] Comment on above: Performed By: #### L AB347, [id number] ####Environment Friendly Landscape Designer: NIEVES RUIZ ([phone])[facility] ([facility])[address] [place] [address] [place] RBC (#/HPF) IN URINE SEDIMENT 6-10 Abnormal 0-[address] [facility] Comment on above: Performed By: #### L AB347, [id number] ####Environment Friendly Landscape Designer: NIEVES RUIZ ([phone])[facility] ([facility])[address] [place] [address] Specific gravity (U) [Rel density] 1.023 Normal 1.005-1.[address] [facility] Comment on above: Performed By: #### L AB347, [id number] ####Environment Friendly Landscape Designer: NIEVES RUIZ ([phone])[facility] ([facility])[address] [place] [address] [place] SQUAMOUS EPITHELIAL CELLS (#/HPF) IN URINE SEDIMENT 3-5 Normal 3-[address] [facility] Comment on above: Performed By: #### L AB347, [id number] ####Environment Friendly Landscape Designer: NIEVES RUIZ ([phone])[facility] ([facility])[address] [place] [address] [place] UROBILINOGEN (MG/DL) IN URINE Normal Normal Normal (0-1) [facility] Comment on above: Performed By: #### L AB347, [id number] ####Environment Friendly Landscape Designer: NIEVES RUIZ ([phone])[facility] ([facility])[address] [place] [address] [place] WBC (LEUKOCYTE) (#/HPF) IN URINE SEDIMENT >100 Abnormal 0-[address] [facility] Comment on above: Performed By: #### L AB347, URH345 ####Environment Friendly Landscape Designer: NIEVES RUIZ ([phone])[facility] ([facility])[address] [place] [address] [place] WBC (LEUKOCYTE) CLUMPS (#/HPF) IN URINE SEDIMENT Rare Abnormal Negative [facility] Comment on above: Performed By: #### L AB347, [id number] ####Environment Friendly Landscape Designer: NIEVES RUIZ ([phone])[facility] ([facility])[address] [place] [address] YEAST (#/HPF) IN URINE Few Abnormal Negative [facility] Comment on above: Performed By: #### L AB347, [id number] ####Environment Friendly Landscape Designer: NIEVES RUIZ ([phone])[facility])[address] [place] [address] COMPREHENSIVE METABOLIC PANE Derek 11-01-2024 Albumin [Mass/Vol] 2.5 g/dL Low 3.4-4.[address] [facility] Comment on above: Performed By: #### L AB113, [id number], LAB99, MKK368, XDL329, LQR064, LAB17, [id number] ####Environment Friendly Landscape Designer: NIEVES RUIZ ([phone])[facility] ([facility])[address] [place] [address] ALP [Catalytic activity/Vol] 99 U/L Normal 40-[address] [facility] Comment on above: Performed By: #### L AB113, [id number], LAB99, RQB298, TXQ915, EWY248, LAB17, [id number] ####Environment Friendly Landscape Designer: NIEVES RUIZ ([phone])[facility] ([facility])[address] [place] [address] ALT [Catalytic activity/Vol] 9 U/L Normal <[address] [facility] Comment on above: Performed By: #### L AB113, [id number], LAB99, ZEI169, FNM976, EDG584, LAB17, [id number] ####Environment Friendly Landscape Designer: NIEVES RUIZ ([phone])[facility])[address] [place] [address] Anion gap [Moles/Vol] 22 mmol/L High 3-13 [facility] Comment on above: Performed By: #### L AB113, [id number], LAB99, HMH710, QEI428, MOQ003, LAB17, [id number] ####Environment Friendly Landscape Designer: NIEVES RUIZ ([phone])[facility] ([facility])[address] [place] [address] AST [Catalytic activity/Vol] 20 U/L Normal <[address] [facility] Comment on above: Performed By: #### L AB113, [id number], LAB99, OHE834, QQC742, GBB485, LAB17, [id number] ####Environment Friendly Landscape Designer: NIEVES RUIZ ([phone])[facility] ([facility])[address] [place] [address] Bilirubin [Mass/Vol] 1.3 mg/dL High <1.2 [facility] Comment on above: Performed By: #### L AB113, AFQ4587, LAB99, WEF626, ORY770, IPC113, LAB17, [id number] ####Environment Friendly Landscape Designer: NIEVES RUIZ ([phone])[facility])[address] [place] [address] Calcium [Mass/Vol] 9.5 mg/dL Normal 8.8-10.[address] [facility] Comment on above: Performed By: #### L AB113, [id number], LAB99, RUL623, BYE290, AAZ040, LAB17, [id number] ####Environment Friendly Landscape Designer: NIEVES RUIZ ([phone])[facility] ([facility])[address] [place] [address] Chloride [Moles/Vol] 95 mmol/L Low 98-107 [facility] Comment on above: Performed By: #### L AB113, [id number], LAB99, JKN197, NCC663, YSB918, LAB17, [id number] ####Environment Friendly Landscape Designer: NIEVES RUIZ ([phone])[facility] ([facility])[address] [place] [address] [place] CO2 [Moles/Vol] 11 mmol/L Low 23-31 [facility] Comment on above: Performed By: #### L AB113, [id number], LAB99, ANH074, TEF856, TEV696, LAB17, [id number] ####Environment Friendly Landscape Designer: NIEVES RUIZ ([phone])[facility] ([address] Creatinine [Mass/Vol] 1.62 mg/dL High 0.57-1.11 [facility] Comment on above: Performed By: #### L AB113, [id number], LAB99, QMO489, ZUO708, IJC110, LAB17, [id number] ####Environment Friendly Landscape Designer: NIEVES RUIZ ([phone])[facility])[address] [place] [address] GLOMERULAR FILTRATION RATE ML/MIN/1.73 SQ M.PREDICTED 34.3 mL/min/1.73m*2 Low >60.0 [facility] Comment on above: Result Comment: Calc ulation based on the Chronic Kidney Disease Epidemiology Collaboration (CKD-EPI) equation refit without adjustment for race Performed By: #### L AB113, [id number], LAB99, YCB891, HSE795, YWY723, LAB17, [id number] ####Environment Friendly Landscape Designer: NIEVES RUIZ ([phone])[facility])[address] [place] [address] Glucose [Mass/Vol] 617 mg/dL Critically high 82-115 [facility] Comment on above: Performed By: #### L AB113, DWS1137, LAB99, SEO565, EZS278, FZV804, LAB17, [id number] ####Environment Friendly Landscape Designer: NIEVES RUIZ ([phone])[facility] ([facility])[address] [place] [address] Potassium [Moles/Vol] 4.8 mmol/L Normal 3.5-5.1 [facility] Comment on above: Result Comment: [facility] potassium values may be up to 0.5 mmol/L lower than serum values. Performed By: #### L AB113, [id number], LAB99, JVW622, XCZ318, EQR575, LAB17, [id number] ####Environment Friendly Landscape Designer: NIEVES RUIZ ([phone])[facility] ([facility])[address] [place] [address] Protein [Mass/Vol] 7.3 g/dL Normal 6.4-8.3 [facility] Comment on above: Performed By: #### L AB113, [id number], LAB99, VNZ210, BKU421, UQL053, LAB17, [id number] ####Environment Friendly Landscape Designer: NIEVES RUIZ ([phone])[facility])[address] [place] [address] Sodium [Moles/Vol] 128 mmol/L Low 136-145 [facility] Comment on above: Performed By: #### L AB113, VIW1844, LAB99, AMT634, TIM871, DOM959, LAB17, [id number] ####Environment Friendly Landscape Designer: NIEVES RUIZ ([phone])[address] Urea nitrogen [Mass/Vol] 30 mg/dL High 9-23 [facility] Comment on above: Performed By: #### L AB113, [id number], LAB99, ZYD727, TVN758, NYJ435, LAB17, [id number] ####Environment Friendly Landscape Designer: NIEVES RUIZ ([phone])[facility])[address] [place] [address] CT HEAD WO IV CONTRASTon CT HEAD WO IV CONTRAST Normal [facility] CT Head WO contraston 2024 No acute intracrania l abnormality. Diffuse cortical volume loss and chronic small vessel ischemic changes. Report Dictated on Electronically Signed By: Anastasia Spencer MD Electronically Signed Date/Time: 11/01/2024 7:51 PM [facility] 1955 [id number] Exam Date/Time: 11/01/2024 19:32 Procedure: CT HEAD [...] CELLS: Unremarkable as visualized. No mastoid effusion. [facility] Anastasia Spencer M D - [...] Electronically Signed Date/Time: 11/01/2024 7:51 PM EDT [facility] Radiology Study observation (narrative) [facility] alth CT Head WO contrastOrdered B y: Anastasia Spencer on 11-01-2024 [facility] Work Phone: Comprehensive metabolic 1998 panelOrdered By: Noemi Mcqueen on 11-01-2024 Albumin [Mass/Vol] 2.5 g/dL Low 3.4 - 4.8 g/dL [facility] ALP [Catalytic activity/Vol] 99 U/L 40 - 150 U/L [facility] ALT [Catalytic activity/Vol] 9 U/L NINF - 30 U/L [facility] Anion gap [Moles/Vol] 22 mmol/L High 3 - 13 mmol/L [facility] AST [Catalytic activity/Vol] 20 U/L NINF - 34 U/L [facility] Bilirubin [Mass/Vol] 1.3 mg/dL High NINF - 1.2 mg/dL [facility] Calcium [Mass/Vol] 9.5 mg/dL 8.8 - 10. 0 mg/dL [facility] Chloride [Moles/Vol] 95 mmol/L Low 98 - 10 7 mmol/L [facility] CO2 [Moles/Vol] 11 mmol/L Low 23 - 31 mmol/L [facility] [facility] Creatinine [Mass/Vol] 1.62 mg/dL High 0.57 - 1.11 mg/dL [facility] GFR/1.73 sq M.predicted (S/P/Bld) [Vol rate/Area] 34.3 mL/min Low - PINF [facility] Comment on above: Calculation based on the Chronic Kidney Disease Epidemiology Collaboration (CKD-EPI) equation refit without adjustment for race Glucose [Mass/Vol] 617 mg/dL Critically high 82 - 1 15 mg/dL [facility] Interpretation and review of laboratory results Abnormal [facility] Potassium [Moles/Vol] 4.8 mmol/L 3.5 - 5.1 mmol/L [facility] Comment on above: Plasma potassium syed ues may be up to 0.5 mmol/L lower than serum values. Protein [Mass/Vol] 7.3 g/dL 6.4 - 8.3 g/dL [facility] Sodium [Moles/Vol] 128 mmol/L Low 136 - 145 mmol/L [facility] Urea nitrogen [Mass/Vol] 30 mg/dL High 9 - 23 mg/dL [facility] DRUGS OF ABUSEon 11-01-2024 AMPHETAMINE SCREEN Negative Normal [facility] Comment on above: Performed By: #### L [id number] ####Environment Friendly Landscape Designer: NIEVES RUIZ ([id number])[facility] ([facility])[address] BARBITURATES SCREEN Negative Normal [facility] Comment on above: Performed By: #### L [id number] ####Environment Friendly Landscape Designer: NIEVES RUIZ ([phone])[facility] ([facility])[address] [place] [address] BENZODIAZEPINE SCREEN Negative Normal [facility] Comment on above: Performed By: #### L [id number] ####Environment Friendly Landscape Designer: NIEVES RUIZ ([phone])[facility] ([facility])[address] [place] [address] COCAINE METAB. SCREEN Negative Normal [facility] Comment on above: Performed By: #### L [id number] ####Environment Friendly Landscape Designer: NIEVES RUIZ ([phone])[facility] ([facility])[address] [place] [address] FENTANYL SCREEN, UR QUAL Negative Normal [facility] Comment on above: Result Comment: SUNG [...] under separate order. Performed By: #### L [id number] ####Environment Friendly Landscape Designer: NIEVES RUIZ ([phone])[facility] [place] [address] METHADONE SCREEN Negative Normal [facility] Comment on above: Performed By: #### L [id number] ####Environment Friendly Landscape Designer: NIEVES RUIZ ([phone])[facility] [place] [address] OPIATES SCREEN Negative Normal [facility] Comment on above: Performed By: #### L [id number] ####Environment Friendly Landscape Designer: NIEVES RUIZ ([phone])[facility] ([facility])[address] [place] [address] OXYCODONE SCREEN Negative Normal [facility] Comment on above: Performed By: #### L [id number] ####Environment Friendly Landscape Designer: NIEVES RUIZ ([phone])[facility] ([facility])[address] [place] [address] PHENCYCLIDINE SCREEN Negative Normal [facility] Comment on above: Performed By: #### L [id number] ####Environment Friendly Landscape Designer: NIEVES RUIZ ([phone])[facility] ([facility])[address] [place] [address] ED Nursing Noteon 11-01-2024 ED Nursing Note Insulin drip and 0.45% sodium chloride infusions stopped per verbal order from . Awaiting BMP results for further orders from . Normal [facility] ED Nursing Note Provider notified that blood sugar dropped over 100, per order. Awaiting orders to continue protocol or not. Normal [facility] ED Nursing Note POCT blood sugar 503 Normal [facility] ED Nursing Note Pt assisted to toile t with wheelchair, stood well on own. Urine sample obtained. RN noted 2 small pressure injuries to buttock with redness surrounded. Pt states she is incontinent and wears briefs at home. Normal [facility] ED Nursing Note Lab called with sarah mims glucose 617, same reported to Dr. Vu and Dr. Dove via secure chat Normal [facility] ED Nursing Note Pt arrived for hyperglycemia, confusion and lightheadedness for past couple of days. Normal [facility] ED Provider Noteon ED Provider Note Normal [facility] HIGH SENSITIVITY TROPONIN, S ERIAL BASELINEon 11-01-2024 TROPONIN HS SERIAL BASELINE 122 ng/L High <=14 [facility] Comment on above: Result Comment: In i ndividuals presenting with symptoms > 2h, a baseline troponin <= 5 ng/L suggests acutecardiac injury is unlikely and further serial testing is generally not indicated. Performed By: #### L [id number], [id number], LAB99, [id number], [id number], [id number], LAB17, [id number] ####Environment Friendly Landscape Designer: NIEVES RUIZ ([phone])[facility])[address] [place] [address] HIGH SENSITIVITY TROPONIN, S ERIAL, SECOND TESTon 11-01-2024 2H TROPONIN HS (SERIAL 2ND TROPONIN) 127 ng/L High <=[address] [facility] Comment on above: Result Comment: Risi ng or falling troponin delta between 2 ??? 15 ng/L as compared to baseline value requires a 3rd serial troponin Performed By: #### L [id number] ####Environment Friendly Landscape Designer: NIEVES RUIZ ([phone])[facility])[address] [place] [address] HIGH SENSITIVITY TROPONIN, S ERIAL, THIRD TESTon 11-01-2024 4H TROPONIN HS (SERIAL 3RD TROPONIN) 128 ng/L High <=14 [facility] Comment on above: Result Comment: Risi ng or falling troponin delta below 2 ng/L as compared to 2h troponin value suggeststhat acute cardiac injury is unlikely. Performed By: #### L [id number], [id number], [id number] ####Environment Friendly Landscape Designer: NIEVES RUIZ ([phone])[facility])[address] [place] [address] LACTIC ACID WITH REFLEXon Lactate [Moles/Vol] 1.6 mmol/L Normal 0.5-2.2 [facility] Comment on above: Performed By: #### L [id number] ####Environment Friendly Landscape Designer: NIEVES RUIZ ([phone])[facility])[address] [place] [address] LIPASEon 11-01-2024 Lipase [Catalytic activity/Vol] 9 U/L Normal <55 [facility] Comment on above: Performed By: #### L [id number], [id number], LAB99, [id number], [id number], [id number], LAB17, [id number] ####Environment Friendly Landscape Designer: NIEVES RUIZ ([phone])[facility])[address] [place] [address] Laboratory - Chemistry and C hemistry - challengeon 11-01-2024 Beta hydroxybutyrate [Mass/Vol] 21 mg/dL High NINF - 2.8 mg/dL [facility] Glucose [Mass/Vol] 274 mg/dL High 70 - 100 mg/dL [facility] Glucose [Mass/Vol] 408 mg/dL High 70 - 100 mg/dL [facility] Glucose [Mass/Vol] mg/dL High 70 - 100 mg/dL [facility] Comment on above: Result Not Confirmed ; Magnesium [Mass/Vol] 1.8 mg/dL 1.6 - 2 .6 mg/dL [facility] TSH Qn 4.5 m[IU]/L [facility] Beta hydroxybutyrate [Mass/Vol] 50.7 mg/dL High NINF - 2.8 mg/dL [facility] Lipase [Catalytic activity/Vol] 9 U/L NINF - 55 U/L [facility] Lactate [Moles/Vol] 1.6 mmol/L 0.5 - 2. 2 mmol/L [facility] Base excess Calc (BldV) [Moles/Vol] -6.1000 mmol/L Low -3.0 - 3.0 mmol/L [facility] CO2 (BldV) [Partial pressure] 28.2 mm[Hg] Low [facility] CO2 [Moles/Vol] 18 mmol/L Low 24.0 - 28.0 mmol/L [facility] HCO3 (Bld) [Moles/Vol] 17.2 mmol/L Low 23.0 - 27.0 mmol/L [facility] Oxygen (BldV) [Partial pressure] 42.3 mm[Hg] mm Hg [facility] pH (BldV) 7.402 [pH] 7.330 - 7.430 [facility] Glucose [Mass/Vol] mg/dL High 70 - 100 mg/dL [facility] Comment on above: Confirmation Drawn; Laboratory - Hematology and Cell countson 11-01-2024 Hemoglobin (Bld) [Mass/Vol] 14.2 g/dL Screen only [facility] Lipase [Catalytic activity/V ol]on 11-01-2024 Interpretation and review of laboratory results Normal [facility] th MAGNESIUMon 11-01-2024 Magnesium [Mass/Vol] 1.8 mg/dL Normal 1.6-2.6 [facility] Comment on above: Result Comment: ORDE R COMMENTS:Higher values can be expected in females during menses. Performed By: #### L [id number], [id number], LAB99, [id number], [id number], [id number], LAB17, [id number] ####Environment Friendly Landscape Designer: NIEVES RUIZ ([phone])[facility] ([facility])[address] [place] [address] Magnesium [Mass/Vol]on 11-01 Interpretation and review of laboratory results Normal [facility] Higher values can be expected in females during menses. [facility] NT PRO BNPon 11-01-2024 Natriuretic peptide B (Bld) [Mass/Vol] 6801 pg/mL High <125 [facility] Comment on above: Performed By: #### L [id number], [id number], LAB99, [id number], [id number], FRY199, LAB17, [id number] ####Environment Friendly Landscape Designer: NIEVES RUIZ ([phone])[facility] ([facility])[address] [place] [address] Natriuretic peptide B [Mass/ Vol]on 11-01-2024 Interpretation and review of laboratory results Abnormal [facility] Natriuretic peptide B (Bld) [Mass/Vol] 6801 pg/mL High NINF - 125 pg/mL [facility] No Panel Informationon 11-01 Interpretation and review of laboratory results Abnormal [facility] Interpretation and review of laboratory results Abnormal [facility] Performed by: [facility], [address] [place] [address] CLIA ID: [id number] [facility] Interpretation and review of laboratory results Abnormal [facility] Performed by: [facility], [address] [place] [id number] CLIA ID: [id number] [facility] 2h Troponin HS (Serial 2nd Troponin) 127 ng/L High NINF - 14 ng/L [facility] Comment on above: Rising or falling tr oponin delta between 2 15 ng/L as compared to baseline value requires a 3rd serial troponin Interpretation and review of laboratory results Abnormal [facility] Interpretation and review of laboratory results Abnormal [facility] Performed by: [facility], [address] [place] [address] CLIA ID: [id number] [facility] Interpretation and review of laboratory results Abnormal [facility] Troponin HS Serial Baseline 122 ng/L High NINF - 14 ng/L [facility] Comment on above: In individuals prese nting with symptoms > 2h, a baseline troponin <= 5 ng/L suggests acute cardiac injury is unlikely and further serial testing is generally not indicated. [facility] Interpretation and review of laboratory results Abnormal [facility] Interpretation and review of laboratory results Normal [facility] Amount Of Oxygen [facility] Interpretation and review of laboratory results Abnormal [facility] Source Of Oxygen None (Room Air) [facility] Assessment of oxygenation is best done with an arterial blood gas determination. Reference ranges for pO2, bicarbonate, and base excess are for mixed venous blood. Specimens drawn from a peripheral vein will often have higher values. [facility] Interpretation and review of laboratory results Abnormal [facility] Performed by: [facility], [address] [place] [address] CLIA ID: [id number] [facility] PHOSPHORUSon 11-01-2024 Phosphate [Mass/Vol] 3.5 mg/dL Normal 2.3-4.7 [facility] Comment on above: Performed By: #### L [id number], [id number], LAB99, [id number], [id number], [id number], LAB17, [id number] ####Environment Friendly Landscape Designer: NIEVES RUIZ ([phone])[facility] ([facility])[address] [place] [address] Phosphate [Moles/Vol]on 10-21 Interpretation and review of laboratory results Normal [facility] Phosphate [Mass/Vol] 3.5 mg/dL 2.3 - 4 .7 mg/dL [facility] THYROID STIMULATING HORMONEo n 11-01-2024 THYROID STIMULATING HORMONE 4.50 uIU/mL Normal 0.35-4.94 [facility] Comment on above: Performed By: #### L AB113, [id number], LAB99, [id number], [id number], [id number], LAB17, [id number] ####Environment Friendly Landscape Designer: NIEVES RUIZ ([id number])[facility] ([facility] [place] [address] [place] TSH Qnon 11-01-2024 Interpretation and review of laboratory results Normal [facility] URINE CULTUREon 11-01-2024 Bacteria identified Cx Nom (U) Normal [facility] Comment on above: Performed By: #### L [id number], [id number] ####Environment Friendly Landscape Designer: NIEVES RUIZ ([id number])[facility] [place] [address] Urinalysis complete panel (U )on 11-01-2024 Bacteria LM.HPF (Urine sed) [#/Area] Moderate Abnormal Negative /HPF [facility] Bilirubin Ql (U) Negative Negative mg/dL [facility] Clarity (U) Turbid Abnormal Clear [facility] Color (U) Yellow Lt. Yellow [facility] Epithelial cells.squamous LM.HPF (Urine sed) [#/Area] 3-5 [facility] Glucose Ql (U) >1,000 Abnormal Normal (<70) mg/dL [facility] Hemoglobin Ql (U) 0.2 mg/dL Abnormal Negative [facility] Hyaline casts Auto (Urine sed) [#/Area] 3-5 Abnormal Negative /LPF [facility] Interpretation and review of laboratory results Abnormal [facility] Ketones (U) [Mass/Vol] 20 mg/dL Abnormal Negative [facility] Leukocyte clumps LM.HPF (Urine sed) [#/Area] Rare Abnormal Negative /HPF [facility] Leukocyte esterase Test strip Ql (U) 500 Abnormal Negative Rad/uL [facility] Mucus LM.HPF (Urine sed) [#/Area] Few Negative /LPF [facility] Nitrite Ql (U) Negative Negative [facility] pH (U) 5.5 [pH] 5.0 - 8.0 pH [facility] Protein (U) [Mass/Vol] 100 mg/dL Abnormal Negative [facility] RBC LM.HPF (Urine sed) [#/Area] 6-10 Abnormal [facility] Specific gravity (U) [Rel density] 1.023 1.005 - 1.030 [facility] Urobilinogen (U) [Mass/Vol] Normal Normal (0-1) mg/dL [facility] WBC LM.HPF (Urine sed) [#/Area] /[HPF] Abnormal [facility] Yeast.budding LM.HPF (Urine sed) [#/Area] Few Abnormal Negative /HPF [facility] Vital signson 11-01-2024 Oxygen saturation in Venous blood 75.8 % [facility] XR Chest Single viewon 11-01 No radiographic acute cardiopulmonary process. Report Dictated on Electronically Signed By: Claudette Nunez MD Electronically Signed Date/Time: 11/01/2024 6:25 PM EDT [facility] Patient Name: DAMEON POTTER : 1955 Exam Date/Time: 11/01/2024 18:17 Procedure: XR CHEST 1 VIEW Ordering Provider: VALDES BLAKE Reason For Exam: weakness, tachy, rule out pneumonia INDICATION: Weakness. History of cervical cancer with vaginal brachytherapy (2020). VIEWS: Chest AP-one image COMPARISON: 12/27/2017 FINDINGS: The trachea is midline. The heart is not enlarged. The costophrenic angles are sharp. There is no confluent consolidation. [facility] Claudette Nunez MD - 11/01/2024 Patient Name: DAMEON POTTER : 1955 Exam Date/Time: 11/01/2024 18:17 Procedure: XR CHEST 1 VIEW Ordering Provider: VALDES BLAKE Reason For Exam: weakness, tachy, rule [...] Electronically Signed Date/Time: 11/01/2024 6:25 PM EDT [facility] Radiology Study observation (narrative) [facility] XR Chest Single viewOrdered By: Claudette Nunez on 11-01-2024 [facility] Work Phone: CNCOon 09-23-2024 [facility] Letter Text Normal [facility] CNCOon 09-11-2024 [facility] Letter Text Normal [facility] 36on 08-18-2024 36 Noted, thank you! Normal [facility] 36 Name of Caller: Dameon Contact Reason for Appointment: Pt states she injured her foot and cannoot walk. She will call back to reschedule Office Name: Endocrinology Normal [facility] 36on 05-23-2024 36 Spoke with patient t o make follow up appointment. Patient states she is unsure when she will be able to make it in and will call wound center when she has a better idea of her schedule. Normal [facility] OCT MACULA CIRRUS OU (BOTH E YES)on 05-02-2024 [facility] Radiology Study observation (narrative[facility] OCT OPTIC NERVE CIRRUS OU (B OTH EYES)on 05-02-2024 [facility] Radiology Study observation (narrative) [facility] US Heart TransthoracicOrdere d By: Jose Martin Garcia on 03-14-2024 Ao Root Index 1.53 cm/m2 [facility] h Work Phone: Aortic Root 3.4 cm [facility] Work Phone: Aortic Sinus Valsalva 3.4 cm [facility] Work Phone: Aortic Sinus Valsalva Index 1.53 cm/m2 [facility] Work Phone: Ascending Aorta 3.7 cm [facility] Work Phone: Ascending Aorta Index 1.67 cm/m2 [facility] Work Phone: AV Area by Peak Velocity 1.1 cm2 [facility] Work Phone: AV Area by VTI 1.0 cm2 [facility] Work Phone: AV Area by VTI 1 cm2 [facility] Work Phone: AV AT 133.21 ms [facility] Work Phone: AV Mean Gradient 25 mmHg [facility] Work Phone: AV Mean Velocity 2.4 m/s [facility] Work Phone: AV Peak Gradient 56 mmHg [facility] Work Phone: AV Peak Velocity 3.7 m/s [facility] Work Phone: AV Velocity Ratio 0.38 [facility] Work Phone: AV VTI 93.1 cm [facility] Work Phone: PEÑA/BSA Peak Velocity 0.5 cm2/m2 [facility] Work Phone: PEÑA/BSA VTI 0.5 cm2/m2 [facility] Work Phone: E/E' Lateral 21.50 [facility] Work Phone: E/E' Lateral 21.5 [facility] Work Phone: E/E' Ratio (Averaged) 19.35 [facility] Work Phone: E/E' Septal 17.20 [facility] Work Phone: E/E' Septal 17.2 [facility] Work Phone: EF BP 68 % 55 - 100 % [facility] Work Phone: Est. RA Pressure 3 mmHg [facility] Work Phone: Global Longitudinal Strain -17.1 % [facility] Work Phone: Interpretation and review of laboratory results Abnormal [facility] Work Phone: IVC Diameter 1.8 cm [facility] Work Phone: LA Diameter 4.3 cm [facility] Work Phone: [phone] LA Size Index 1.94 cm/m2 [facility] Work Phone: [phone] LA Volume 2C 76 mL Abnormal 22 - 52 mL [facility] Work Phone: [phone] LA Volume 4C 64 mL Abnormal 22 - 52 mL [facility] Work Phone: LA Volume A/L 73 mL [facility] Work Phone: LA Volume BP 70 mL Abnormal 22 - 52 mL [facility] Work Phone: LA Volume Index 2C 34 mL/m2 16 - 34 mL/m2 [facility] Work Phone: LA Volume Index 4C 29 mL/m2 16 - 34 mL/m2 [facility] Work Phone: LA Volume Index A/L 33 mL/m2 16 - 34 mL/m2 [facility] Work Phone: LA Volume Index BP 32 ml/m2 16 - 34 ml/m2 [facility] Work Phone: LA/AO Root Ratio 1.26 [facility] al[facility] Work Phone: LV E' Lateral Velocity 4 cm/s [facility] Work Phone: LV E' Septal Velocity 5 cm/s [facility] Work Phone: LV EDV A2C 79 mL [facility] Work Phone: LV EDV A4C 96 mL [facility] Work Phone: LV EDV BP 88 mL 56 - 104 mL [facility] Work Phone: LV EDV Index A2C 36 mL/m2 [facility] Work Phone: LV EDV Index A4C 43 mL/m2 [facility] Work Phone: LV EDV Index BP 40 mL/m2 [facility] Work Phone: LV Ejection Fraction A2C 65 % [facility] Work Phone: LV Ejection Fraction A4C 71 % [facility] Work Phone: LV ESV A2C 28 mL [facility] Work Phone: LV ESV A4C 28 mL [facility] Work Phone: LV ESV BP 29 mL 19 - 49 mL [facility] Work Phone: LV ESV Index A2C 13 mL/m2 [facility] alth Work Phone: LV ESV Index A4C 13 mL/m2 [facility] Work Phone: [phone] LV ESV Index BP 13 mL/m2 [facility] Work Phone: LVOT Area 3.1 cm2 [facility] Work Phone: LVOT Cardiac Output 5.6 liter/mi nut e [facility] Work Phone: LVOT Diameter 2.0 cm [facility] Work Phone: LVOT Diameter 2 cm [facility] Work Phone: LVOT Mean Gradient 4 mmHg [facility] Work Phone: LVOT Peak Gradient 7 mmHg [facility] Work Phone: [phone] LVOT Peak Velocity 1.4 m/s [facility] Work Phone: LVOT Stroke Volume Index 43.6 mL/m2 [facility] Work Phone: LVOT SV 96.7 ml [facility] Work Phone: LVOT VTI 30.8 cm [facility] Work Phone: LVOT:AV VTI Index 0.33 [facility] Work Phone: MV A Velocity 1.07 m[facility]s [facility]: MV E Velocity 0.86 m/s [facility] Work Phone: MV E Wave Deceleration Time 434.6 ms [facility] Work Phone: MV E/A 0.80 [facility] Work Phone: MV E/A 0.8 [facility] Work Phone: RA Area 4C 47.4 mL [facility] Work Phone: RA Area 4C 46.4 mL [facility] Work Phone: RV Basal Dimension 3.3 cm [facility] Work Phone: RV Free Wall Peak S' 14 cm/s [facility] Work Phone: RV Longitudinal Dimension 5.4 cm [facility] [facility] Work Phone: [phone] RV Mid Dimension 1.7 cm [facility] alth Work Phone: Sinotubular Junction 2.9 cm [facility] a Health Work Phone: [phone] TAPSE 2.2 cm 1.7 cm [facility] Work Phone: [phone] [facility] Work Phone: [phone] Heart Transthoracicon Left Ventricle: Left ventricle [...] body habitus. No contrast was given. CV [facility] CT Abdomen and Pelvis W cont rast [...] are seen in the lower lumbar spine. [facility] RADIOLOGY SYSTEM Tha Hamm MD - 12/04/2023 [facility] Name: DAME[facility] 1955 [id number] Exam Date/Time: 12/04/2023 10:43 Procedure: CT ABDOMEN [...] Electronically Signed Date/Time: 12/04/2023 12:33 PM EDT [facility] Radiology Study observation (narrative) Nikole Polanco alth CT Abdomen and Pelvis W cont rast IVOrdered By: Tha Hamm on 12-04-2023 [facility] Work Phone: FUNDUS PHOTOS OU (BOTH EYES) on 11-13-2023 [facility] Radiology Study observation (narrative) [facility] OCT MACULA CIRRUS OU (BOTH E YES)on 11-13-2023 [facility] Radiology Study observation (narrative) [facility] AMB POC HEMOGLOBIN A1Con HbA1c (Bld) [Mass fraction] 10.8 % Abnormal - 5.7 % [facility] HbA1c (Bld) [Mass fraction]o n 11-02-2023 Interpretation and review of laboratory results Abnormal [facility] Radiology Study observation (narrative) Nikole Polanco alth AMB POC HEMOGLOBIN A1Con HbA1c (Bld) [Mass fraction] 10.2 % Abnormal - 5.7 % [facility] HbA1c (Bld) [Mass fraction]o n 05-09-2023 Interpretation and review of laboratory results Abnormal [facility] AMB POC HEMOGLOBIN A1Con HbA1c (Bld) [Mass fraction] 10.2 % Abnormal - 5.6 % [facility] HbA1c (Bld) [Mass fraction]o n 01-19-2023 Interpretation and review of laboratory results Abnormal [facility] Radiation Onc F/U Noteon Radiation Onc F/U Note [facility] SYST EM [facility] Radiation Oncology RADIATION ONCOLOGY FOLLOW UP PATIENT: Dameon Potter DATE OF SERVICE: 03/01/2022 [facility] : 1955 AGE: 67 PRIMARY SITE: Uterus, 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 MMR proteins intact. STAGE: pT2 NX M0, II HISTORY OF PRESENT ILLNESS: Ms. 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 A D T C [...] follow with the nurse practitioner at the [employer] oncologist office. She was last seen in [...] Zinc deficiency. Ms. Potter follows at the [place] for the lower extremity issue. Primary open angle glaucoma. Cataracts. PAST SURGICAL HISTORY: Robotic hysterectomy with BSO 09/30/2020. D T C 09/03/2020. Gastric bypass surgery with laparoscopic gallbladder removal and umbilical hernia repair 01/29/2018. Gum surgery for wisdom teeth in . Thyroglossal duct excision 2000. Partial thyroidectomy for a cyst. Upper endoscopy 03/20/2017. Hitchcock teeth extraction 2012. Bilateral cataract surgery ALLERGIES: erythromycin (bulk); levofloxacin; nitrofurantoin ([id number]%); macrolides T ketolides; molds T smuts; Quinolones; [...] ABDOMEN: Soft, nonte (more content not included)... [facility] ANES POSTPROC EVALon 022 ANES POSTPROC EVAL HNO ID: [id number] Author: Aman Dai MD Service: Anesthesiology Author Type: Anesthesiologist Type: Anesthesia Postprocedure Evaluation Filed: 12/06/2021 8:12 AM Note Text: POST ANESTHESIA EVALUATION NOTE : 1955 Procedure Summary Date: 12/06/21 [place] / [place] [address] [place] [facility] [place]esthesia Start: 737 Anesthesia Stop: 808 Procedures: [...] December 06, 2021 TIME: 8:11 AM CSN: [id number] [facility] ANES PRE-OPon 12-06-2021 ANES PRE-OP HNO ID: [id number] Author: Aman Dai MD Service: Anesthesiology Author Type: Anesthesiologist Type: Anesthesia Preprocedure Evaluation Filed: 12/06/2021 7:34 AM Note Text: ANESTHESIOLOGY DAY OF SURGERY NOTE : 1955 Procedure Information Date/Time: 12/06/21799 Procedures: PHACOEMULSIFICATION CATARACT IMPLANT INTRAOCULAR LENS W/O ENDOSCOPIC CYCLOPHOTOCOAGULATION (Right Eye) OPHTHALMIC BIOMETRY BY PARTIAL COHERENCE INTERFEROMETRY W/INTRAOCULAR LENS POWER CALCULATION (Right Eye) Location: [facility] [place] Surgeons: Moses Acevedo MD Estimated body mass index is 45.87 kg/m? as calculated from the following: Height as of this encounter: 167.6 cm (5' 6"). Weight as of this encounter: 128.9 kg [...] December 06, 2021 TIME: 7:33 AM CSN: [id number] [facility] HISTORY PHYSICALon HISTORY PHYSICAL HNO ID: [id number] Author: Moses Acevedo MD Service: Abstract Author [...] DATE: December 06, 2021 TIME: 7:46 AM [facility] OPERATIVE NOon 12-06-2021 OPERATIVE NO HNO ID: [id number] Author: Moses Acevedo MD Service: Abstract Author Type: Physician Type: Operative Report Filed: 12/06/2021 8:09 AM Note Text: OPERATIVE/PROCEDURE REPORT Patient Name: Dameon Potter LOG ID: [id number] Surgery/Procedure Date: 12/06/2021 Incision/Procedure Start Time: 7:53 AM Incision Close/Procedure End Time: 8:07 AM Surgeon(s)/Procedural ist(s) and Arabic Translator(s): Surgeon(s) and Role: * Moses Acevedo MD [...] created using a cystotome and utrata forceps. [place]-dissection and hydro-delineation were then performed. Phacoemulsification was [...] Implant Name Type Inv. Item Serial No. Solar Process Engineer Lot No. LRB Model Num No. Used LENS ACRYSOF ULTRASERT +16.5 DIOPTER ACRYLIC IOL 1 PIECE FOLDABLE UV BLUE - [id number] Intraocular Lens LENS ACRYSOF ULTRASERT +16.5 DIOPTER ACRYLIC IOL 1 PIECE FOLDABLE UV BLUE [id number] [facility] Right [id number] 1 Drains: None Complications: None Moses Acevedo MD December 06, 2021 8:09 AM [facility] ANES POSTPROC EVALon 022 ANES POSTPROC EVAL HNO ID: [id number] Author: Aman Dai MD Service: Anesthesiology Author Type: Anesthesiologist Type: Anesthesia Postprocedure Evaluation Filed: 11/22/2021 8:17 AM Note Text: POST ANESTHESIA EVALUATION NOTE : 1955 Procedure Summary Date: 11/22/21 Room / Location: [place] [address] / [facility] [place] Anesthesia Start: 734 Anesthesia Stop: 808 Procedures: [...] November 22, 2021 TIME: 8:16 AM CSN: [id number] [facility] ANES PRE-OPon 11-22-2021 ANES PRE-OP HNO ID: [id number] Author: Aman Dai MD Service: Anesthesiology Author Type: Anesthesiologist Type: Anesthesia Preprocedure Evaluation Filed: 11/22/2021 7:16 AM Note Text: ANESTHESIOLOGY DAY OF SURGERY NOTE : 1955 Procedure Information Date/Time: 11/22/21729 Procedures: PHACOEMULSIFICATION CATARACT IMPLANT INTRAOCULAR LENS W/O ENDOSCOPIC CYCLOPHOTOCOAGULATION (Left Eye) OPHTHALMIC BIOMETRY BY PARTIAL COHERENCE INTERFEROMETRY W/INTRAOCULAR LENS POWER CALCULATION (Left Eye) Location: [facility] [place] [facility] [place]geons: Moses Acevedo MD Estimated body mass index is 45.84 kg/m? as calculated from the following: Height as of this encounter: 167.6 cm (5' 6"). Weight as of this encounter: 128.8 kg [...] November 22, 2021 TIME: 7:14 AM CSN: [id number] [facility] HISTORY PHYSICALon HISTORY PHYSICAL HNO ID: [id number] Author: Moses Acevedo MD Service: Abstract Author [...] Acevedo MD PATIENT NAME: Dameon Potter DATE: November 22, 2021 TIME: 7:41 AM [facility] OPERATIVE NOon 11-22-2021 OPERATIVE NO HNO ID: [id number] Author: Moses Acevedo MD Service: Abstract Author Type: Physician Type: Operative Report Filed: 11/22/2021 8:09 AM Note Text: OPERATIVE/PROCEDURE REPORT Patient Name: Dameon Potter LOG ID: [id number] Surgery/Procedure Date: 11/22/2021 Incision/Procedure Start Time: 7:52 AM Incision Close/Procedure End Time: 8:07 AM Surgeon(s)/Procedural ist(s) and Arabic Translator(s): Surgeon(s) and Role: * Moses Acevedo MD [...] created using a cystotome and utrata forceps. [place]-dissection and hydro-delineation were then performed. Phacoemulsification was [...] Implant Name Type Inv. Item Serial No. Solar Process Engineer Lot No. LRB Model Num No. Used LENS ACRYSOF ULTRASERT +15.5 DIOPTER ACRYLIC IOL 1 PIECE FOLDABLE UV BLUE - [id number] Intraocular Lens LENS ACRYSOF ULTRASERT +15.5 DIOPTER ACRYLIC IOL 1 PIECE FOLDABLE UV BLUE [id number] [facility] Left ACU0T0.155 1 Drains: None Complications: None Moses Acevedo MD November 22, 2021 8:09 AM [facility] Radiation Onc F/U Noteon Radiation Onc F/U Note [facility] Radiation Oncology RADIATION ONCOLOGY FOLLOW UP PATIENT: Dameon Potter DATE OF SERVICE: 09/01/2021 [facility] : 1955 AGE: 66 PRIMARY SITE: Uterus, 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 MMR proteins intact. STAGE: pT2 NX M0, II HISTORY OF PRESENT ILLNESS: Ms. 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 A D T C [...] level stable. She is scheduled to see [employer] oncology in October. She is following with [...] Zinc deficiency. Ms. Potter follows at the [place] for the lower extremity issue. Primary open angle glaucoma. Cataracts. PAST SURGICAL HISTORY: Robotic hysterectomy with BSO 09/30/2020. D T C 09/03/2020. Gastric bypass surgery with laparoscopic gallbladder removal with LRYGB and umbilical hernia repair 01/29/2018. Gum surgery for wisdom teeth in . Thyroglossal duct excision 2000. Partial thyroidectomy for a cyst. Upper endoscopy 03/20/2017. Hitchcock teeth extraction 2012. ALLERGIES: erythromycin (bulk); levofloxacin; nitrofurantoin ([id number]%); macrolides T ketolides; molds T smuts; Quinolones; [...] rate and (more content not included)... Normal [facility] CT Guidance Radiology Therap yOrdered By: Ino He on 01-11-2021 Patient Name: DAMEON POTTER Computed Tomography ACCESSION EXAM DATE/TIME PROCEDURE ORDERING PROVIDER [id number] 01/10/2021 10:[address] Nonbill Guide Devon HE M.D., INO Darnell Therapy Reason For [...] evidence of diverticulitis. Report Dictated on Workstation: [id number] --- Final --- Dictated: 01/11/2021 8:25 am Dictating Physician: MD SIMENTAL JEFFREY Signed Date and Time: 01/11/2021 8:27 am Signed by: MD SIMENTAL JEFFREY Transcribed Date and Time: 01/11/2021 8:25 [facility] Work Phone: [facility], [facility] Incoming Radiology Results From [employer] - 01/11/2021 8:28 AM EDT Patient Name: DAMEON POTTER Computed Tomography ACCESSION EXAM DATE/TIME PROCEDURE ORDERING PROVIDER [id number] 01/10/2021 10:[address] Nonbill Guide Devon HE M.D., INO E Therapy Reason For [...] JEFFREY Transcribed Date and Time: 01/11/2021 8:25 [facility] Work Phone: [facility] Work Phone: CT Nonbill Guide Rad Therapy on 01-10-2021 CT Nonbill Guide Rad Therapy Patient Name: DAMEON POTTER Computed Tomography ACCESSION EXAM DATE/TIME PROCEDURE ORDERING PROVIDER [id number] 01/10/2021 10:[address] Nonbill Guide Devon HE M.D., INO E Therapy Reason For [...] evidence of diverticulitis. Report Dictated on Workstation: [employer] Bedding[employer]TESTDS Final Dictated: 01/11/2021 8:25 am Dictating Physician: MD SIMENTAL JEFFREY Signed Date and Time: 01/11/2021 8:27 am Signed by: MD SIMENTAL JEFFREY Transcribed Date and Time: 01/11/2021 8:[address] [facility] Hemogramon 12-27-2020 Erythrocyte distribution width (RBC) [Ratio] 14.2 % Normal 11.5-14.[address] [facility] Comment on above: Performed By: #### H [facility] #### [place] [phone] Hematocrit (Bld) [Volume fraction] 38.4 % Normal 35.0-47.[address] [facility] Comment on above: Performed By: #### H EMOG #### [facility] [address] [place], [place] Hemoglobin (Bld) [Mass/Vol] 12.7 g/dL Normal 11.7-16.[address] [facility] Comment on above: Performed By: #### H EMOG #### [place] [address] [address] [place], [place] MCH (RBC) [Entitic mass] 29.5 pg Normal 26.0-34.[address] [facility] Comment on above: Performed By: #### H EMOG #### [place] [address] [address] [place], [place] MCHC 33.1 % Normal 32.0-36.[address] [facility] Comment on above: Performed By: #### H EMOG #### [place] [address] [address] [place], [place] MCV (RBC) [Entitic vol] 89.1 fL Normal 79.0-98.0 [facility] Comment on above: Performed By: #### H EMOG #### [place] [address] [address] [place], [place] Platelet mean volume (Bld) [Entitic vol] 11.3 fL High 7.4-10.[address] [facility] Comment on above: Performed By: #### H EMOG #### [place] [address] [address] [place], [place] Platelets (Bld) [#/Vol] 147 10*3/uL Normal 140-[address] [facility] Comment on above: Performed By: #### H EMOG #### [address] [place], [place] RBC (Bld) [#/Vol] 4.31 10*6/uL Normal 3.80-5.[address] [facility] Comment on above: Performed By: #### H EMOG #### [place] [address] [address] [place], [place] WBC (Bld) [#/Vol] 5.6 10*3/uL Normal 3.6-10.7 [employer] Comment on above: Performed By: #### H [facility] #### [employer] [address] [place] [facility] [place] [address] Laboratory - Chemistry and C hemistry - challengeOrdered By: Ino He on 12-27-2020 Hemoglobin.gastrointestin al spec 1 Ql (Stl) 12.7 g/dL 11.7 - 16.0 g/dL [employer] Work Phone: Laboratory - Hematology and Cell countsOrdered By: Ino He on 12-27-2020 Hematocrit (Bld) [Volume fraction] 38.4 % 35.0 - 47.0 % [employer] Work Phone: MCH (RBC) [Entitic mass] 29.5 pg 26. 0 - 34.0 pg [employer] Phone: MCHC (RBC) [Mass/Vol] 33.1 % 32.0 - 36.0 % [employer] Phone: MCV (RBC) [Entitic vol] 89.1 fL 79.0 - 98.0 fL [employer] Work Phone: Platelet distribution width (Bld) [Ratio] 14.2 % 11.5 - 14.5 % [employer] Phone: Platelet mean volume (Bld) [Entitic vol] 11.3 fL High 7.4 - 10.4 fL [employer] Phone: Platelets (Bld) [#/Vol] 147 10*3/uL 140 - 440 10*3/uL [employer] Work Phone: RBC (Bld) [#/Vol] 4.31 10*6/uL 3.80 - 5.2 0 10*6/uL [employer] Work Phone: WBC (Bld) [#/Vol] 5.6 10*3/uL 3.6 - 10.7 10*3/uL [employer] Work Phone: No Panel InformationOrdered By: Ino He on 12-27-2020 Interpretation and review of laboratory results Abnormal [facility] Work Phone: [phone] Test Performed by [facility], [address] [place] [address] [facility] Work Phone: [facility] Work Phone: [phone] Hemogramon 12-13-2020 Erythrocyte distribution width (RBC) [Ratio] 13.7 % Normal 11.5-14.[address] [facility] Comment on above: Performed By: #### B GLU #### [facility] [place] [address] [place], [place] Hematocrit (Bld) [Volume fraction] 38.2 % Normal 35.0-47.[address] [facility] Comment on above: Performed By: #### B GLU #### [address] Hemoglobin (Bld) [Mass/Vol] 12.6 g/dL Normal 11.7-16.[address] [facility] Comment on above: Performed By: #### B GLU #### [facility] [address] MCH (RBC) [Entitic mass] 29.3 pg Normal 26.0-34.[address] [facility] Comment on above: Performed By: #### B GLU #### [address] MCHC 32.9 % Normal 32.0-36.[address] [facility] Comment on above: Performed By: #### B GLU #### [address] MCV (RBC) [Entitic vol] 89.1 fL Normal 79.0-98.0 [facility] Comment on above: Performed By: #### B GLU #### [address] Platelet mean volume (Bld) [Entitic vol] 11.0 fL High 7.4-10.[address] [facility] Comment on above: Performed By: #### B GLU #### [address] Platelets (Bld) [#/Vol] 125 10*3/uL Low 140-440 [facility] [employer] Comment on above: Performed By: #### B GLU #### [facility] [address] [place], [place] RBC (Bld) [#/Vol] 4.29 10*6/uL Normal 3.80-5.20 [facility] [employer] Comment on above: Performed By: #### B GLU #### [facility] [address] [place], [place] WBC (Bld) [#/Vol] 4.3 10*3/uL Normal 3.6-10.7 [facility] [employer] Comment on above: Performed By: #### B GLU #### [facility] [address] [place], [place] Laboratory - Chemistry and C hemistry - challengeOrdered By: Ino He on 12-13-2020 Hemoglobin.gastrointestin al spec 1 Ql (Stl) 12.6 g/dL 11.7 - 16.0 g/dL [facility] Work Phone: [phone] Laboratory - Hematology and Cell countsOrdered By: Ino He on 12-13-2020 Hematocrit (Bld) [Volume fraction] 38.2 % 35.0 - 47.0 % [employer] Work Phone: [phone] MCH (RBC) [Entitic mass] 29.3 pg 26. 0 - 34.0 pg [employer] Work Phone: [phone] MCHC (RBC) [Mass/Vol] 32.9 % 32.0 - 36.0 % [employer] Work Phone: [phone] MCV (RBC) [Entitic vol] 89.1 fL 79.0 - 98.0 fL [employer] Work Phone: [phone] Platelet distribution width (Bld) [Ratio] 13.7 % 11.5 - 14.5 % [employer] Work Phone: [phone] Platelet mean volume (Bld) [Entitic vol] 11.0 fL High 7.4 - 10.4 fL [employer] Work Phone: [phone] Platelets (Bld) [#/Vol] 125 10*3/uL Low 140 - 440 10*3/uL [employer] Work Phone: [phone] RBC (Bld) [#/Vol] 4.29 10*6/uL 3.80 - 5.2 0 10*6/uL [employer] Work Phone: [phone] WBC (Bld) [#/Vol] 4.3 10*3/uL 3.6 - 10.7 10*3/uL [employer] Work Phone: [phone] Panel InformationOrdered By: Ino He on 12-13-2020 Interpretation and review of laboratory results Abnormal [employer] Work Phone: [phone] Test Performed by [employer] [facility] [address] [employer] Work Phone: [phone] [employer] Work Phone: [phone] CT Guidance Radiology Therap yOrdered By: Ino He on 11-11-2020 Patient Name: DAMEON POTTER Computed Tomography ACCESSION EXAM DATE/TIME PROCEDURE ORDERING PROVIDER [id number] 11/11/2020 09:[address] Nonbill Guide Devon HE M.D., INO Carie Therapy Reason For Exam (CT Nonbill Guide [...] Tomography ACCESSION EXAM DATE/TIME PROCEDURE ORDERING PROVIDER [id number] 11/11/2020 09:[address] Nonbill Guide Devon HE M.D., INO E Therapy Reason For [...] Tomography ACCESSION EXAM DATE/TIME PROCEDURE ORDERING PROVIDER [id number] 11/11/2020 09:[address] Nonbill Guide Devon HE M.D., INO E Therapy Reason For [...] Transcribed Date and Time: 11/11/2020 4:[address] [facility] CT Chest/Abdomen/Pelvis (PO, IV)on 10-27-2020 CT Chest/Abdomen/Pelvis (PO,IV) Patient Name: DAMEON POTTER Computed Tomography ACCESSION EXAM DATE/TIME PROCEDURE ORDERING PROVIDER [id number] 10/27/2020 14:[address] Chest/Abdomen/Pelvis Lamine HE, INO E (PO,IV) CPT code 32140 82427 Q9967 Reason For Exam (CT Chest/Abdomen/Pelvis (PO,IV)) [...] Transcribed Date and Time: 10/28/2020 8:[address] [facility] Glucose,Bedsideon 10-01-2020 Glucose [Mass/Vol] 263 mg/dL High 70-[address] [facility] Comment on above: Result Comment: Test performed by glucose meter. Results may be 10%-15% lower than serum/plasma values. (CLIA ID [id number]) Performed By: #### B GLU #### [facility] [address] [place] [address] Glucose [Mass/Vol] 321 mg/dL High 70-[address] [facility] Comment on above: Result Comment: Test performed by glucose meter. Results may be 10%-15% lower than serum/plasma values. (CLIA ID [id number]) Performed By: #### B GLU #### [facility] [address] [place] [address] Glucose [Mass/Vol] 341 mg/dL High 70-[address] [facility] Comment on above: Result Comment: Test performed by glucose meter. Results may be 10%-15% lower than serum/plasma values. (CLIA ID [id number]) Performed By: #### B GLU #### [facility] [address] [place] [address] POCT Glucoseon 10-01-2020 Glucose [Mass/Vol] 263 mg/dL High 70 - 100 mg/dL [facility] Work Phone: Comment on above: Test performed by gl ucose meter. Results may be 10%-15% lower than serum/plasma values. (CLIA ID [id number]) Interpretation and review of laboratory results Abnormal [employer] Work Phone: Test Performed by [employer], [address] [place] [address] [facility] Work Phone: Glucose [Mass/Vol] 321 mg/dL High 70 - 100 mg/dL [facility] Work Phone: Comment on above: Test performed by gl ucose meter. Results may be 10%-15% lower than serum/plasma values. (CLIA ID [id number]) Interpretation and review of laboratory results Abnormal [employer] Work Phone: Test Performed by [employer], [address] [place] [address] [facility] Work Phone: Glucose [Mass/Vol] 341 mg/dL High 70 - 100 mg/dL [facility] Work Phone: Comment on above: Test performed by gl ucose meter. Results may be 10%-15% lower than serum/plasma values. (CLIA ID [id number]) Interpretation and review of laboratory results Abnormal [employer] Work Phone: Test Performed by [employer], [address] [place] [address] [facility] Work Phone: Surgical Pathologyon 021 Sodium [Moles/Vol] SEE BELOW [employer] Work Phone: [phone] [facility] PATHOLOGY AND LABORATORY MEDICINE [address] [place] [address] FINAL SURGICAL PATHOLOGY REPORT NAME: DAMEON POTTER : 1955 65 Y F BILLING NO.: [id number] LOCATION: [place] [address] 01 PROCEDURE 09/30/2020 DATE: SURGEON: CUAUHTEMOC STUBBS [...] FIGO Stage: II Comment(s): Pending MMR IHC FACTORY ENGINEER TUMOR BLOCK(S): A5 JAW/JAW Intradepartmental Consultation: HERNAN BARR M.D.; (select slides) Signature> MANISH NOBLES M.D. CLINICAL INFORMATION: Grade 1 endometrial cancer SPECIMEN: UTERUS (RFN), WITH/WITHOUT TUBES AND OVARIES GROSS DESCRIPTION: Received in formalin labeled uterus, cervix, bilateral fallopian tubes and ovaries" is a previously opened uterus with bilateral [...] The serosal surface of the uterus is pink-gonzales, glistening and unremarkable. The cervix is approximately [...] or lesions are identified in the ovaries. Whale Fisherman sections of the specimen are submitted as follows: Cassette Summary: A1) Anterior cervix. A2-A4) Anterior endomyometrium. A5) Posterior cervix. A6-A10) Whale Fisherman sections of tumor with areas of greatest [...] characteristics determined by the clinical laboratories of [facility]. They have not been cleared by the [...] negativity on decalcified specimens. Professional Performing Location: [address] [address]. DEPARTMENT OF PATHOLOGY AND LABORATORY MEDICINE [place], [place] [address] [facility] Work Phone: TSH without Reflexon 021 TSH Qn 1.005 u[IU]/mL 0.465 - 4.680 u[IU]/mL [facility] Work Phone: Test Performed by [employer], [place] [address] [facility] Work Phone: Thyroid Stim. Hormoneon 09-20 Thyroid Stim. Hormone 1.005 u[IU]/mL Normal 0.465-4.[address] [facility] Comment on above: Performed By: #### B GLU #### [employer] [facility] [address] [place] [address] Glucose,Bedsideon 09-30-2020 Glucose [Mass/Vol] 355 mg/dL High 70-[address] [facility] Comment on above: Result Comment: Test performed by glucose meter. Results may be 10%-15% lower than serum/plasma values. (CLIA ID [id number]) Performed By: #### B GLU #### [employer] [place] [address] [place] [address] Glucose [Mass/Vol] 388 mg/dL High 70-[address] [facility] Comment on above: Result Comment: Test performed by glucose meter. Results may be 10%-15% lower than serum/plasma values. (CLIA ID [id number]) Performed By: #### B GLU #### [employer] [facility] [address] [place] [address] Glucose [Mass/Vol] 366 mg/dL High 70-[address] [facility] Comment on above: Result Comment: Test performed by glucose meter. Results may be 10%-15% lower than serum/plasma values. (CLIA ID [id number]) Performed By: #### B GLU #### [facility] [address] [place] [address] Glucose [Mass/Vol] 288 mg/dL High 70-[address] [facility] Comment on above: Result Comment: Test performed by glucose meter. Results may be 10%-15% lower than serum/plasma values. (CLIA ID [id number]) Performed By: #### B GLU #### [employer] [address] [place] [address] Glucose [Mass/Vol] 308 mg/dL High 70-[address] [facility] Comment on above: Result Comment: Test performed by glucose meter. Results may be 10%-15% lower than serum/plasma values. (CLIA ID [id number]) Performed By: #### B GLU #### [facility] [address] [place] [address] Glucose [Mass/Vol] 379 mg/dL High 70-[address] [facility] Comment on above: Result Comment: Test performed by glucose meter. Results may be 10%-15% lower than serum/plasma values. (CLIA ID [id number]) Performed By: #### B GLU #### [facility] [address] [place] [address] Glucose [Mass/Vol] 317 mg/dL High 70-[address] [facility] Comment on above: Result Comment: Test performed by glucose meter. Results may be 10%-15% lower than serum/plasma values. (CLIA ID [id number]) Performed By: #### B GLU #### [facility] [address] [place] [address] Glucose [Mass/Vol] 343 mg/dL High 70-[address] [facility] Comment on above: Result Comment: Test performed by glucose meter. Results may be 10%-15% lower than serum/plasma values. (CLIA ID [id number]) Performed By: #### B GLU #### [facility] [address] [place] [address] Glucose [Mass/Vol] 330 mg/dL High 70-[address] [facility] Comment on above: Result Comment: Test performed by glucose meter. Results may be 10%-15% lower than serum/plasma values. (CLIA ID [id number]) Performed By: #### B GLU #### [facility] [address] [place] [place] [address] POCT Glucoseon 09-30-2020 Glucose [Mass/Vol] 355 mg/dL High 70 - 100 mg/dL [facility] Work Phone: Comment on above: Test performed by gl ucose meter. Results may be 10%-15% lower than serum/plasma values. (CLIA ID [id number]) Interpretation and review of laboratory results Abnormal [employer] Work Phone: 1 22 Test Performed by [place] [address] [facility] Work Phone: 1 Glucose [Mass/Vol] 388 mg/dL High 70 - 100 mg/dL [facility] Work Phone: 1 Comment on above: Test performed by gl ucose meter. Results may be 10%-15% lower than serum/plasma values. (CLIA ID [id number]) Interpretation and review of laboratory results Abnormal [employer] Work Phone: 1 Test Performed by [employer], [place] [address] [employer] Work Phone: 1 Glucose [Mass/Vol] 366 mg/dL High 70 - 100 mg/dL [facility] Work Phone: 1 Comment on above: Test performed by gl ucose meter. Results may be 10%-15% lower than serum/plasma values. (CLIA ID [id number]) Interpretation and review of laboratory results Abnormal [employer] Work Phone: 1 Test Performed by [employer], [place] [address] [employer] Work Phone: 1 Glucose [Mass/Vol] 288 mg/dL High 70 - 100 mg/dL [employer] Work Phone: 1 Comment on above: Test performed by gl ucose meter. Results may be 10%-15% lower than serum/plasma values. (CLIA ID [id number]) Interpretation and review of laboratory results Abnormal [employer] Work Phone: 1 22 Test [place] [address] [employer] Work Phone: 1 [phone] Glucose [Mass/Vol] 308 mg/dL High 70 - 100 mg/dL [facility] Work Phone: 1 Comment on above: Test performed by gl ucose meter. Results may be 10%-15% lower than serum/plasma values. (CLIA ID [id number]) Interpretation and review of laboratory results Abnormal [employer] Work Phone: [phone] Test Performed by [employer], [place] [address] [employer] Work Phone: [phone] Glucose [Mass/Vol] 379 mg/dL High 70 - 100 mg/dL [employer] Work Phone: 1 [phone] Comment on above: Test performed by gl ucose meter. Results may be 10%-15% lower than serum/plasma values. (CLIA ID [id number]) Interpretation and review of laboratory results Abnormal [employer] Work Phone: [phone] Test Performed by [employer], [facility] [place] [address] [employer] Work Phone: 1 [phone] Glucose [Mass/Vol] 317 mg/dL High 70 - 100 mg/dL [employer] Work Phone: 1 Comment on above: Test performed by gl ucose meter. Results may be 10%-15% lower than serum/plasma values. (CLIA ID [id number]) Interpretation and review of laboratory results Abnormal [employer] Work Phone: 1 22 Test Performed by [employer], [place] [address] [employer] Work Phone: 1 22 Glucose [Mass/Vol] 343 mg/dL High 70 - 100 mg/dL [employer] Work Phone: 1 Comment on above: Test performed by gl ucose meter. Results may be 10%-15% lower than serum/plasma values. (CLIA ID [id number]) Interpretation and review of laboratory results Abnormal [employer] Work Phone: [phone] Test Performed by [employer], [place] [address] [employer] Work Phone: [phone] Glucose [Mass/Vol] 330 mg/dL High 70 - 100 mg/dL [facility] Work Phone: [phone] Comment on above: Test performed by gl ucose meter. Results may be 10%-15% lower than serum/plasma values. (CLIA ID [id number]) Interpretation and review of laboratory results Abnormal [employer] Work Phone: Test Performed by [employer], [address] [place] [address] [facility] Work Phone: Surgical Pathologyon 021 Surgical Pathology [phone] [facility] PATHOLOGY AND LABORATORY MEDICINE [address] [place] [address] [phone] FINAL SURGICAL PATHOLOGY REPORT NAME: DAMEON POTTER : 1955 65 Y F BILLING NO.: [id number] LOCATION: [place] [address] PROCEDURE 09/30/2020 DATE: SURGEON: CUAUHTEMOC STUBBS MD [...] FIGO Stage: II Comment(s): Pending MMR IHC FACTORY ENGINEER TUMOR BLOCK(S): A5 JAW/JAW Intradepartmental Consultation: HERNAN BARR M.D.; (select slides) Signature> MANISH NOBLES M.D. CLINICAL INFORMATION: Grade 1 endometrial cancer SPECIMEN: UTERUS (RFN), WITH/WITHOUT TUBES AND OVARIES GROSS DESCRIPTION: Received in formalin labeled "uterus, cervix, bilateral fallopian tubes and ovaries" is a previously opened uterus with bilateral [...] The serosal surface of the uterus is pink-gonzales, glistening and unremarkable. The cervix is approximately [...] or lesions are identified in the ovaries. Whale Fisherman sections of the specimen are submitted as follows: Cassette Summary: A1) Anterior cervix. A2-A4) Anterior endomyometrium. A5) Posterior cervix. A6-A10) Whale Fisherman sections of tumor with areas of greatest [...] characteristics determined by the clinical laboratories of [facility]. They have not been cleared by the US Food and Drug Administration (FDA). The FDA has determined that such clearance or approval is not necessary. All the above immunostains were performed on paraffin embedded tissue. Appropriate positive and negative controls (where applicable) were run in parall (more content not included)... Normal [facility] Basic Metabolic Panelon 03-0 Anion gap [Moles/Vol] 8 mmol/L Normal 3-13 [facility] Comment on above: Performed By: #### B GLU #### [facility] [address] [place] [address] Calcium [Mass/Vol] 8.8 mg/dL Normal 8.4-10.[address] [facility] Comment on above: Performed By: #### B GLU #### [facility] [address] [place] [address] CO2 [Moles/Vol] 24 mmol/L Normal 22-30 [facility] Comment on above: Performed By: #### B GLU #### [facility] [address], [place] Creatinine [Mass/Vol] 0.56 mg/dL Normal 0.52-1.25 [facility] Comment on above: Performed By: #### B GLU #### [facility] [address], [place] eGFR OTHER > 90.0 Normal >[address] [facility] Comment on above: Result Comment: KDIG O [...] secretion. Performed By: #### B GLU #### [facility] [address], [place] GFR/1.73 sq M.predicted among blacks MDRD (S/P/Bld) [Vol rate/Area] mL/min/{1.73_m2} Normal >[address] [facility] Comment on above: Performed By: #### B GLU #### [facility] [address], [place] Glucose [Mass/Vol] 334 mg/dL High 70-[address] [facility] Comment on above: Performed By: #### B GLU #### [place] [address] [address], [place] Urea nitrogen [Mass/Vol] 14 mg/dL Normal 7-[address] [facility] Comment on above: Performed By: #### B GLU #### [place] [address], [place] Chloride [Moles/Vol] 105 mmol/L Normal 98-107 [facility] Comment on above: Performed By: #### B GLU #### [facility] [address], [place] Potassium [Moles/Vol] 4.3 mmol/L Normal 3.5-5.1 [facility] Comment on above: Performed By: #### B GLU #### [facility] [address], [place] Sodium [Moles/Vol] 136 mmol/L Normal 135-[address] [facility] Comment on above: Performed By: #### B GLU #### [facility] [address], [place] Anion gap [Moles/Vol] 8 mmol/L 3 - 13 mmol/L [facility] Work Phone: Calcium [Mass/Vol] 8.8 mg/dL 8.4 - 10. 4 mg/dL [facility] Work Phone: Chloride [Moles/Vol] 105 mmol/L 98 - 10 7 mmol/L [facility] Work Phone: CO2 [Moles/Vol] 24 mmol/L 22 - 30 mmol/L [facility] Work Phone: Creatinine [Mass/Vol] 0.56 mg/dL 0.52 - 1.25 mg/dL [facility] Work Phone: EGFR IF NonAfrican Moroccan >90.0 >60 mL/min [facility] Work Phone: Comment on above: KDIGO guidelines [...] MDRD (S/P/Bld) [Vol rate/Area] mL/min/{1.73_m2} >60 mL/min [facility] Work Phone: [phone] Glucose [Mass/Vol] 334 mg/dL High 70 - 100 mg/dL [facility] Work Phone: Interpretation and review of laboratory results Abnormal [facility] Work Phone: Potassium [Moles/Vol] 4.3 mmol/L 3.5 - 5.1 mmol/L [facility] Work Phone: Sodium [Moles/Vol] 136 mmol/L 135 - 145 mmol/L [facility] Work Phone: 1 Urea nitrogen [Mass/Vol] 14 mg/dL 7 - 20 mg/dL [facility] Work Phone: [phone] Test Performed by [employer], [address] [place] [id number] [place], [place] [address] Work Phone: [phone] Hemoglobin AND Hematocriton 09-23-2020 Hematocrit (Bld) [Volume fraction] 38.0 % Normal 35.0-47.[address] [facility] Comment on above: Performed By: #### B GLU #### [facility] [address] [place] [address] Hemoglobin (Bld) [Mass/Vol] 12.7 g/dL Normal 11.7-16.[address] [facility] Comment on above: Performed By: #### B GLU #### [employer] [address] [place] [address] Hemoglobin and Hematocrit, B loodon 09-23-2020 Hematocrit (Bld) [Volume fraction] 38.0 % 35 - 47 % [facility] Work Phone: [phone] Hemoglobin (Bld) [Mass/Vol] 12.7 g/dL 11.7 - 16 g/dL [facility] Work Phone: [phone] Test Performed by [employer], [address] [place] [id number] [place], [place] [address]A Work Phone: TS GELon 09-23-2020 TS GEL ABO Group: A Rh, Gel: POS Antibody Screen Gel: NEG Normal [employer] Comment on above: Performed By: #### B GLU #### [employer] [address] [place] [address] TYPE AND SCREENon 09-23-2020 Sodium [Moles/Vol] A [employer] Work Phone: Sodium [Moles/Vol] Negative [employer] Work Phone: Sodium [Moles/Vol] Positive [employer] Work Phone: Test Performed by [employer], [address] [place] [address] [employer] Work Phone: ANES POSTPROC EVALon 021 ANES POSTPROC EVAL HNO ID: [id number] Author: Toshia Castillo Service: Anesthesiology Author Type: Physician Type: Anesthesia Postprocedure Evaluation Filed: 09/03/2020 9:43 AM Note Text: POST ANESTHESIA EVALUATION NOTE : 1955 Procedure Summary Date: 09/03/20 Room / Location: [address] Anesthesia Start: 8 Anesthesia Stop: 844 [...] September 03, 2020 TIME: 9:43 AM CSN: [id number] Normal [facility] ANES PRE-OPon 09-03-2020 ANES PRE-OP HNO ID: [id number] Author: Toshia Castillo Service: Anesthesiology Author Type: Physician Type: Anesthesia Preprocedure Evaluation Filed: 09/03/2020 7:55 AM Note Text: ANESTHESIOLOGY DAY OF SURGERY NOTE : 1955 Procedure(s) (LRB): HYSTEROSCOPY, DANDC WITH TRUCLEAR (N/A) Surgeon(s): Eric Butt Estimated body mass index is 45.19 kg/m? as calculated from the following: Height as of this encounter: 167.6 cm (5' 6"). Weight as of this encounter: 127 kg [...] Consent obtained from: guardian / power of employee benefits attorney.Patient / Surrogate agrees to blood products: [...] September 03, 2020 TIME: 7:14 AM CSN: [id number] [facility] NURSING PROGon 09-03-2020 NURSING PROG HNO ID: [id number] Author: Radha MtzRn) VALENTÍN Brownlee Service: ? 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 LOG ID: [id number] Surgery/Procedure Date: 09/03/2020 Incision/Procedure Start Time: 812 Incision Close/Procedure End Time: 08 Surgeon(s)/Procedural ist(s) and Arabic Translator(s): Surgeon(s) and Role: * Eric Butt - [...] None Drains: None Complications: None A digital "sweep" of the vaginal canal was performed by [...] 03, 2020 TIME: 8:50 AM PAGER/CONTACT #: [facility] SURGICAL PATHOLOGYon 021 CASE REPORT [facility] Comment on above: Order Comment: Speci men Type: TISSUE SPECIMEN Result Comment: Surg ical Pathology Report Case: [id number] Authorizing Provider: Eric Butt Collected: 09/03/2020 08:30 AM Ordering Location: [facility] Received: 09/06/2020 09:29 AM Pathologist: Rose Urena MD Specimen: ENDOMETRIUM CURETTINGS, UTERINE MASS AND EMC Performed By: #### S #### [facility] CLIA [id number] [address] [place] [address] CLINICAL HISTORY POST-MENOPAUSAL BLEEDING. ATYPICAL SQUAMOUS CELL CHANGES CERVIX OF UNDETERMINED SIGNIFICANCE FAVOR DYSPLASIA. [facility] Comment on above: Order Comment: Speci men Type: TISSUE SPECIMEN Performed By: #### S #### [facility] CLIA [id number] [address] [place] [address] DIAGNOSIS COMMENT [facility] Comment on above: Order Comment: Speci men Type: TISSUE SPECIMEN Result Comment: A p5 3 immunostain shows wild-type staining. MSI testing will be performed and separately reported. This case was reviewed at the [facility] Gynecologic Pathology Consensus Conference on 09/09/2020 and the above diagnosis reflects the consensus opinion of those present. Laboratory Developed Test (LDT) Disclaimer: Performance characteristics of immunohistochemical, immunofluorescent and chromogenic in-situ hybridization tests have been determined by the performing laboratory within [facility]???s [facility] [place] ([facility], [facility], or [facility]) in a manner consistent with CLIA requirements. One or more of these tests have not been cleared or approved by the FDA. [facility] is regulated under CLIA as qualified to perform high-complexity testing. These tests are used for clinical purposes. They should not be regarded as investigational or for research. Positive and negative controls stain appropriately. Performed By: #### S #### [facility] CLIA [id number] [address] [place] [address] FINAL DIAGNOSIS [facility] Comment on above: Order Comment: Speci men Type: TISSUE SPECIMEN Result Comment: A. E ndometrium, curettage Endometrial adenocarcinoma, endometrioid type FIGO grade 2. -The tumor, in part, involves an adenomyoma. See comment. Performed By: #### S #### [facility] CLIA [id number] [address] [place] [address] FINAL PERFORMING LAB Normal [facility] Comment on above: Order Comment: Speci men Type: TISSUE SPECIMEN Result Comment: Diag nostic interpretation performed at [facility], [address] [place] [address] CLIA# [id number] Spaghetti Machine Operator: Stanford Peña M.D. Performed By: #### S #### [facility] CLIA [id number] [address] [place] [address] GROSS DESCRIPTION Normal [facility] Comment [...] five cassettes. KVB/kls Gross examination performed at [facility], [address] [place] [address] CLIA# [id number] Performed By: #### S #### [facility] CLIA [id number] [address] [place] [address] PROGRESSon 09-02-2020 PROGRESS HNO ID: [id number] Author: Laura Brown) Anh Service: Anesthesiology Author [...] Anion gap [Moles/Vol] 9 mmol/L Normal 9-18 [facility] Comment on above: Order Comment: Speci men Type: BLOOD SPECIMEN Performed By: #### 2 4321-2 ####[facility] [id number] [place] [address] Calcium [Mass/Vol] 9.0 mg/dL Normal 8.5-10.2 [facility] Comment on above: Order Comment: Speci men Type: BLOOD SPECIMEN Performed By: #### 2 4321-2 ####[facility] [id number] [place] [address] Chloride [Moles/Vol] 106 mmol/L High 97-105 [facility] Comment on above: Order Comment: Speci men Type: BLOOD SPECIMEN Performed By: #### 2 4321-2 ####[facility] [id number] [place] [address] CO2 [Moles/Vol] 23 mmol/L Normal 22-30 [facility] Comment on above: Order Comment: Speci men Type: BLOOD SPECIMEN Performed By: #### 2 4321-2 ####[facility] [id number] [place] [address] Creatinine [Mass/Vol] 0.70 mg/dL Normal 0.58-0.96 [facility] Comment on above: Order Comment: Speci men Type: BLOOD SPECIMEN Performed By: #### 2 4321-2 ####[facility] [id number] [place] [address] GFR/1.73 sq M.predicted MDRD (S/P/Bld) [Vol rate/Area] [...] actual GFR. Performed By: #### 2 4321-2 ####[facility] [id number] [place] [address] Glucose [Mass/Vol] 328 mg/dL High 74-99 [facility] Comment on above: Order Comment: Speci men Type: BLOOD SPECIMEN Result Comment: The [place] Diabetes Association (ADA) provides guidance for cutoff [...] Standards of Medical Care in Diabetes 2016, [place] Diabetes Association. Diabetes Care. 2016.39(Suppl 1). Performed By: #### 2 4321-2 ####[facility] [id number] [place] [address] Potassium [Moles/Vol] 4.4 mmol/L Normal 3.7-5.1 [facility] Comment on above: Order Comment: Speci men Type: BLOOD SPECIMEN Performed By: #### 2 4321-2 ####[facility]IA [id number] [place] [address] Sodium [Moles/Vol] 138 mmol/L Normal 136-144 [facility] Comment on above: Order Comment: Speci men Type: BLOOD SPECIMEN Performed By: #### 2 4321-2 ####[facility] [id number] [place] [address] Urea nitrogen [Mass/Vol] 13 mg/dL Normal 7-21 [facility] Comment on above: Order Comment: Speci men Type: BLOOD SPECIMEN Performed By: #### 2 4321-2 ####[facility]ORY[facility]IA [id number] [place] [address] CBC Pnl Bld Autoon Erythrocyte distribution width (RBC) [Ratio] 12.8 % Normal 11.5-15.0 [facility] Comment on above: Order Comment: Speci men Type: BLOOD SPECIMEN Performed By: #### 5 8410-2 ####[facility]IA [id number] [place] [address] Hematocrit (Bld) [Volume fraction] 40.2 % Normal 36.0-46.0 [facility] Comment on above: Order Comment: Speci men Type: BLOOD SPECIMEN Performed By: #### 5 8410-2 ####[facility] [id number] [place] [address] Hemoglobin (Bld) [Mass/Vol] 13.2 g/dL Normal 11.5-15.5 [facility] Comment on above: Order Comment: Speci men Type: BLOOD SPECIMEN Performed By: #### 5 8410-2 ####[facility]IA [id number] [place] [address] MCH (RBC) [Entitic mass] 29.7 pg Normal 26.0-34.0 [facility] Comment on above: Order Comment: Speci men Type: BLOOD SPECIMEN Performed By: #### 5 8410-2 ####[facility] [id number] [place] [address] MCHC (RBC) [Mass/Vol] 32.8 g/dL Normal 30.5-36.0 [facility] Comment on above: Order Comment: Speci men Type: BLOOD SPECIMEN Performed By: #### 5 8410-2 ####[facility] [id number] [place] [address] MCV (RBC) [Entitic vol] 90.3 fL Normal 80.0-100.0 [place] Comment on above: Order Comment: Speci men Type: BLOOD SPECIMEN Performed By: #### 5 8410-2 ####[facility]ORY[facility]IA [id number] [place] [address] Nucleated RBC (Bld) [#/Vol] 10*3/uL Normal <0.01 [facility] Comment on above: Order Comment: Speci men Type: BLOOD SPECIMEN Performed By: #### 5 8410-2 ####[facility]IA [id number] [place] [address] Platelet mean volume (Bld) [Entitic vol] 13.3 fL High 9.0-12.7 [facility] Comment on above: Order Comment: Speci men Type: BLOOD SPECIMEN Performed By: #### 5 8410-2 ####[facility]ORY[facility]IA [id number] [place] [address] Platelets (Bld) [#/Vol] 194 10*3/uL Normal 150-400 [facility] Comment on above: Order Comment: Speci men Type: BLOOD SPECIMEN Performed By: #### 5 8410-2 ####[facility] [id number] [place] [address] RBC (Bld) [#/Vol] 4.45 10*6/uL Normal 3.90-5.20 [facility] Comment on above: Order Comment: Speci men Type: BLOOD SPECIMEN Performed By: #### 5 8410-2 ####[facility] [id number] [place] [address] WBC (Bld) [#/Vol] 8.33 10*3/uL Normal 3.70-11.00 [facility] Comment on above: Order Comment: Speci men Type: BLOOD SPECIMEN Performed By: #### 5 8410-2 ####[facility]ORY[facility]IA [id number] [place] [address] HGB A1Con 09-01-2020 Average glucose Estimated from glycated hemoglobin mass conc (Bld) 246 mg/dL Normal [facility] Comment on above: Order Comment: Speci men Type: BLOOD SPECIMEN Result Comment: eAG: (Estimated average glucose) is a calculated value from HgbA1c and is hotel services sales representative of the average blood glucose level in the last 2-3 month period. Performed By: #### H BA1C #### [facility] CLIA [id number] [address] [place] [address] HbA1c (Bld) [Mass fraction] 10.2 % High [...] diabetes. Performed By: #### H BA1C #### [facility] CLIA [id number] [address] [place] [id number] HISTORY PHYSICALon HISTORY PHYSICAL HNO ID: [id number] Author: Laura Brown) Anh Service: ? Author Type: Nurse Practitioner Type: [...] presenting for postmenopausal bleeding. States just after Zach in 2019 she had a week of [...] fevers. Neurological: No history of TIA's, stroke, BOILER BLOWER tumor, impaired sensorium, hemiplegia, paraplegia or quadraplegia. [...] mEq CR capsule Medication Comments documented by Lincoln Lambert (Coa) on 02/16/2020 at 1528. 02/16/20 The medications are managed by this patient by: PATIENT LINCOLN LAMBERT, CARO ALLERGIES Allergen Reactions - Lumigan [Bimatopros* Intolerance [...] 64 Temp 98.2 Resp 18 Ht 5' 6" (1.68m) Wt 280 lb (127.0kg) SpO2 96% [...] ago and she had testing done at [facility]- she states she had an Echo 2 years ago and was found to have aortic stenosis. Denies CP or SOB RED DOT: Patient becomes short of breath with activity- mets 2.75, history of aortic stenosis (I do not see echo in [place] [place]), says she saw cardiology with [facility] about 2 years ago, uncontrolled DM with hgbA1C 10.2. May want to review with anesthesia Assessment/Plan PLAN Planned Procedure: Procedure(s): HYSTEROSCOPY, DANDC WITH TRUCLEAR (N/A) The Following Tests/Procedures Have Been Initiated: CBC, BMP, HgbA1C ordered by TRANSPORTATION JOB TITLES Instructions Given to Patient: Instructions located in the after visit summary. Patient given verbal and written preop instructions and voices comprehension and compliance. SIGNATURE: Laura Kamara, CLINICAL PROGRAMMER.SAMUEL PATIENT NAME: Dameon Potter DATE: September 01, 2020 TIME: 8:20 AM PAGER/CONTACT #: [facility] PROGRESSon 09-01-2020 PROGRESS HNO ID: [id number] Author: Laura Kamara Service: Anesthesiology Author Type: [...] Maria Del Carmen 08-27-2020 RAMIN Telephone (AKPRAD) DAMEON POTTER ([id number]) 1955 F Date Time Provider Department 08/27/20 BEVERLY SNELL (CLINICAL PROGRAMMER, SAMUEL) BLUE During your visit today, we recorded the following information about you: Beverly Snell APRN.CNP 08/27/2020 2:[address] Butt I have ordered a pre op covid test for your patient. Please review results and discuss with patient. Thank you, Beverly Snell APRN.CNP Allergies As of Date: 08/27/2020 Noted [...] E AND PRE-OPERATIVE COVID [SQPOCOVD] Order #: [id number] FUTURE Prescriptions as of 08/27/2020 Sig: OLMESARTAN [...] intramuscularly* FLUTICASONE PROPIONATE 50 MCG* Use 1 [place] in the nose as ne* HYDROCHLOROTHIAZIDE 25 [...] lacrimal glands [*11/04/2018 Encounter Status:Closed by BEVERLY SNELL CNP on 08/27/20 [facility] HOSPon 08-27-2020 HOSP Patient:Dameon Potter MRN: Height:5' 6"(1.676 m) Weight:280 lb (127.007 kg) Outpatient Medications [...] 36.0 Progress Notes (AK PROVIDER ADULT): Beverly Snell APRN.CNP 08/27/2020 2:[address] Butt I have ordered a pre op covid test for your patient. Please review results and discuss with patient. Thank you, Beverly Snell APRN.CNP Progress Notes (): Laura Kamara APRN.CNP [...] presenting for postmenopausal bleeding. States just after [place] in 2019 she had a week of [...] fevers. Neurological: No history of TIA's, stroke, BOILER BLOWER tumor, impaired sensorium, hemiplegia, paraplegia or quadraplegia. [...] mEq CR capsule Medication Comments documented by Lincoln Lambert (Coa) on 02/16/2020 at 1528. 02/16/20 The medications [...] 64 Temp 98.2 Resp 18 Ht 5' 6" (1.68m) Wt 280 lb (127.0kg) SpO2 96% [...] ago and she had testing done at [facility]- she states she had an Echo 2 years ago and was found to have aortic stenosis. Denies CP or SOB RED DOT: Patient becomes short of breath with activity- mets 2.75, history of aortic stenosis (I do not see echo in [place]), says she saw cardiology with [facility] about 2 years ago, uncontrolled DM with hgbA1C 10.2. May want to review with anesthesia Assessment/Plan PLAN Planned Procedure: Procedure(s): HYSTEROSCOPY, DANDC WITH TRUCLEAR (N/A) The Following Tests/Procedures Have Been Initiated: CBC, BMP, HgbA1C ordered by TRANSPORTATION JOB TITLES Instructions Given to Patient: Instructions located in [...] in epic), says she saw cardiology with [facility] about 2 years ago, uncontrolled DM with [...] risks, recovery. Questions answered. Consent from office. Erci Butt MD September 03, 2020 7:56 AM Normal [facility] EKG 12 [place] 12-28-2017 Sreedhar, [facility] Incoming Cardiology Results From [facility] - 12/28/2017 2:[address] [facility] Test Date: 2017-12-27 Pat Name: Dameon Potter Department: 04 Room: Gender: F Attendant Honor Bar: DAYAMIKristen WHITEB: 1955 Requested By: PAKO POOLE Order Number: [id number] Reading MD: Michael Martinez Measurements Intervals [place] Rate: 74 P: 19 RI: 168 QRS: -27 QRSD: 102 T: 71 QT: 392 QTc: 435 Interpretive Statements SINUS RHYTHM Probable LEFT VENTRICULAR HYPERTROPHY Electronically Signed On 12-28-2017 14:18:17 EDT by Michael XAVIER Work Phone: EKG 12 LeadOrdered By: Bridget Golden on 12-28-2017 Sreedhar, [facility] Incoming Cardiology Results From [facility] - 12/28/2017 2:[address] [facility] Test Date: 2017-12-27 Pat Name: Dameon Potter Department: 04 Room: Gender: F Attendant Honor Bar: SARAH : 1955 Requested By: PAKO POOLE Order Number: [id number] Reading : Michael Martinez Measurements Intervals [place] Rate: 74 P: 19 RI: 168 QRS: -27 QRSD: 102 T: 71 QT: 392 QTc: 435 Interpretive Statements SINUS RHYTHM Probable LEFT VENTRICULAR HYPERTROPHY Electronically Signed On 12-28-2017 14:18:17 EDT by Michael XAVIER Work Phone: Sreedhar, [facility] Incoming Cardiology Results From [facility] - 12/28/2017 2:19 PM EDT [facility] Test Date: 2017-12-27 Pat Name: Dameon Potter Department: 04 Room: Gender: F Attendant Honor Bar: SARAH WHITEB: 1955 Requested By: PAKO POOLE Order Number: [id number] Reading MD: Michael Martinez Measurements Intervals [place] Rate: 74 P: 19 RI: 168 QRS: -27 QRSD: 102 T: 71 QT: 392 QTc: 435 Interpretive Statements SINUS RHYTHM Probable LEFT VENTRICULAR HYPERTROPHY Electronically Signed On 12-28-2017 14:18:17 EDT by Michael Martinez [employer] Work Phone: No Panel InformationOrdered By: Bridget Golden on 12-28-2017 [employer] Test Date: 2017-12-27 Pat Name: Dameon Potter Department: 04 Room: Gender: F Attendant Honor Bar: SARAH WHITEB: 1955 Requested By: PAKO POOLE Order Number: [id number] Reading MD: Michael Martinez Measurements Intervals [place] Rate: 74 P: 19 RI: 168 QRS: -27 QRSD: 102 T: 71 QT: 392 QTc: 435 Interpretive Statements SINUS RHYTHM Probable LEFT VENTRICULAR HYPERTROPHY Electronically Signed On 12-28-2017 14:18:17 EDT by Michael Martinez [employer] Work Phone: [employer] Work Phone: No Panel Informationon 12-28 Result, Unknown Provider - 12/28/2017 [employer] Test Date: 2017-12-27 Pat Name: Dameon Potter Department: 04 Room: Gender: F Attendant Honor Bar: SARAH : 1955 Requested By: PAKO POOLE Order Number: [id number] Reading MD: Michael Martinez Measurements Intervals [place] Rate: 74 P: 19 RI: 168 QRS: -27 QRSD: 102 T: 71 QT: 392 QTc: 435 Interpretive Statements SINUS RHYTHM Probable LEFT VENTRICULAR HYPERTROPHY Electronically Signed On 12-28-2017 14:18:17 EDT by Michael Martinez [employer] Work Phone: Otheron 12-28-[address] [facility] Test Date: 2017-12-27 Pat Name: Dameon Potter Department: 04 Room: Gender: F Attendant Honor Bar: SARAH WHITEB: 1955 Requested By: PAKO POOLE Order Number: [id number] Reading MD: Mihcael Martinez Measurements Intervals [place] Rate: 74 P: 19 RI: 168 QRS: -27 QRSD: 102 T: 71 QT: 392 QTc: 435 Interpretive Statements SINUS RHYTHM Probable LEFT VENTRICULAR HYPERTROPHY Electronically Signed On 12-28-2017 14:18:17 EDT by [place], [place] Sreedhar, [facility] Incoming Cardiology Results From [facility] - 12/28/2017 2:[address] [facility] Test Date: 2017-12-27 Pat Name: Dameon Potter Department: 04 Room: Gender: F Attendant Honor Bar: SARAH WHITEB: 1955 Requested By: PAKO POOLE Order Number: [id number] Reading MD: Michael Martinez Measurements Intervals [place] Rate: 74 P: 19 RI: 168 QRS: -27 QRSD: 102 T: 71 QT: 392 QTc: 435 Interpretive Statements SINUS RHYTHM Probable LEFT VENTRICULAR HYPERTROPHY Electronically Signed On 12-28-2017 14:18:17 EDT by Michael [facility] Test Date: 2017-12-27 Pat Name: Dameon Potter Department: 04 Room: Gender: F Attendant Honor Bar: SARAH WHITEB: 1955 Requested By: PAKO POOLE Order Number: [id number] Reading MD: Michael Martinez Measurements Intervals [place] Rate: 74 P: 19 RI: 168 QRS: -27 QRSD: 102 T: 71 QT: 392 QTc: 435 Interpretive Statements SINUS RHYTHM Probable LEFT VENTRICULAR HYPERTROPHY Electronically Signed On 12-28-2017 14:18:17 EDT by [facility], [place] No Panel Information [facility] Vital Signs Date Time Vital Sign Value Performing Clinician Facility 05-19-2025 08:31-0400 Body temperature 98.1 [degF] Nettie Rhodes DO Work Phone: [facility] 05-19-2025 08:31-0400 Diastolic blood pressure 84 mm[Hg] Nettie Meagan DO Work Phone: [facility] 05-19-2025 08:31-0400 Heart rate 63 /min Nettie Meagan DO Work Phone: [facility] 05-19-2025 08:31-0400 Respiratory rate 16 /min Nettie Meagan DO Work Phone: [facility] 05-19-2025 08:31-0400 SaO2% (BldA) [Mass fraction] 97 % Nettie Meagan DO Work Phone: [facility] 05-19-2025 08:31-0400 Systolic blood pressure 161 mm[Hg] Nettie eMagan DO Work Phone: [facility] 05-14-2025 01:20-0400 Body mass index (BMI) [Ratio] 33.27 kg/m2 Nettie Meagan DO Work Phone: [facility] 05-14-2025 01:20-0400 Body weight 93.5 kg Nettie Meagan DO Work Phone: [facility] 05-13-2025 13:19-0400 Body height 167.6 cm Nettie Meagan DO Work Phone: [facility] 12-22-2024 12:30-0400 Diastolic blood pressure 109 mm[Hg] Cuauhtemoc Stubbs MD Work Phone: [facility] 12-22-2024 12:30-0400 Heart rate 53 /min Cuauhtemoc Stubbs MD Work Phone: [facility] 12-22-2024 12:30-0400 SaO2% (BldA) [Mass fraction] 98 % Cuauhtemoc Stubbs MD Work Phone: [facility] 12-22-2024 12:30-0400 Systolic blood pressure 146 mm[Hg] Cuauhtemoc Stubbs MD Work Phone: [facility] 12-22-2024 11:45-0400 Respiratory rate 16 /min Cuauhtemoc Stubbs MD Work Phone: [facility] 12-22-2024 08:19-0400 Body height 167.6 cm Cuauhtemoc Stubbs MD Work Phone: [facility] 12-22-2024 08:19-0400 Body mass index (BMI) [Ratio] 34.86 kg/m2 Cuauhtemoc Stubbs MD Work Phone: [facility] 12-22-2024 08:19-0400 Body temperature 98.01 [degF] Cuauhtemoc Stubbs MD Work Phone: [facility] 12-22-2024 08:19-0400 Body weight 97.98 kg Cuauhtemoc Stubbs MD Work Phone: [facility] 12-08-2024 13:30-0400 Diastolic blood pressure 96 mm[Hg] Cuauhtemoc Stubbs MD Work Phone: [facility] 12-08-2024 13:30-0400 Systolic blood pressure 172 mm[Hg] Cuauhtemoc Stubbs MD Work Phone: [facility] 12-08-2024 12:50-0400 Body height 167.6 cm Cuauhtemoc Stubbs MD Work Phone: [facility] 12-08-2024 12:50-0400 Body mass index (BMI) [Ratio] 35.69 kg/m2 Cuauhtemoc Stubbs MD Work Phone: [facility] 12-08-2024 12:50-0400 Body weight 100.25 kg Cuauhtemoc Stubbs MD Work Phone: [facility] 12-08-2024 12:50-0400 Heart rate 72 /min Cuauhtemoc Stubbs MD Work Phone: [facility] 12-08-2024 12:50-0400 SaO2% (BldA) [Mass fraction] 98 % Cuauhtemoc Stubbs MD Work Phone: [facility] 11-25-2024 10:44-0400 Body mass index (BMI) [Ratio] 35.83 kg/m2 Araseli Can CLINICAL PROGRAMMER - CRISIS COUNSELOR Work Phone: [facility] 11-25-2024 10:44-0400 Body temperature 97.81 [degF] Araseli Can CLINICAL PROGRAMMER - CRISIS COUNSELOR Work Phone: [facility] 11-25-2024 10:44-0400 Body weight 100.7 kg Araseli Can CLINICAL PROGRAMMER - CRISIS COUNSELOR Work Phone: [facility] 11-25-2024 10:44-0400 Diastolic blood pressure 73 mm[Hg] Araseli Can CLINICAL PROGRAMMER - CRISIS COUNSELOR Work Phone: [facility] 11-25-2024 10:44-0400 Heart rate 49 /min Araseli Can CLINICAL PROGRAMMER - CRISIS COUNSELOR Work Phone: [facility] 11-25-2024 10:44-0400 Respiratory rate 16 /min Araseli Can CLINICAL PROGRAMMER - CRISIS COUNSELOR Work Phone: [facility] 11-25-2024 10:44-0400 SaO2% (BldA) [Mass fraction] 98 % Araseli Can CLINICAL PROGRAMMER - CRISIS COUNSELOR Work Phone: [facility] 11-25-2024 10:44-0400 Systolic blood pressure 144 mm[Hg] Araseli Can CLINICAL PROGRAMMER - CRISIS COUNSELOR Work Phone: [facility] 11-18-2024 09:37-0400 Body mass index (BMI) [Ratio] 35.35 kg/m2 Araseli Can CLINICAL PROGRAMMER - CRISIS COUNSELOR Work Phone: [facility] 11-18-2024 09:37-0400 Body temperature 97.2 [degF] Araseli Can CLINICAL PROGRAMMER - CRISIS COUNSELOR Work Phone: [facility] 11-18-2024 09:37-0400 Body weight 99.34 kg Araseli Can CLINICAL PROGRAMMER - CRISIS COUNSELOR Work Phone: [facility] 11-18-2024 09:37-0400 Diastolic blood pressure 68 mm[Hg] Araseli Can CLINICAL PROGRAMMER - CRISIS COUNSELOR Work Phone: [facility] 11-18-2024 09:37-0400 Heart rate 72 /min Araseli Can CLINICAL PROGRAMMER - CRISIS COUNSELOR Work Phone: [facility] 11-18-2024 09:37-0400 Respiratory rate 18 /min Araseli Can CLINICAL PROGRAMMER - CRISIS COUNSELOR Work Phone: [facility] 11-18-2024 09:37-0400 SaO2% (BldA) [Mass fraction] 96 % Araseli Can CLINICAL PROGRAMMER - CRISIS COUNSELOR Work Phone: [facility] 11-18-2024 09:37-0400 Systolic blood pressure 130 mm[Hg] Araseli Can CLINICAL PROGRAMMER - CRISIS COUNSELOR Work Phone: [facility] 11-12-2024 08:48-0400 Body mass index (BMI) [Ratio] 33.93 kg/m2 Araseli Can CLINICAL PROGRAMMER - CRISIS COUNSELOR Work Phone: [facility] 11-12-2024 08:48-0400 Body temperature 98.01 [degF] Araseli Can CLINICAL PROGRAMMER - CRISIS COUNSELOR Work Phone: [facility] 11-12-2024 08:48-0400 Body weight 95.35 kg Araseli Can CLINICAL PROGRAMMER - CRISIS COUNSELOR Work Phone: [facility] 11-12-2024 08:48-0400 Diastolic blood pressure 64 mm[Hg] Araseli Can CLINICAL PROGRAMMER - CRISIS COUNSELOR Work Phone: [facility] 11-12-2024 08:48-0400 Heart rate 64 /min Araseli Can CLINICAL PROGRAMMER - CRISIS COUNSELOR Work Phone: [facility] 11-12-2024 08:48-0400 Respiratory rate 16 /min Araseli Can CLINICAL PROGRAMMER - CRISIS COUNSELOR Work Phone: [facility] 11-12-2024 08:48-0400 SaO2% (BldA) [Mass fraction] 97 % Araseli Can CLINICAL PROGRAMMER - CRISIS COUNSELOR Work Phone: [facility] 11-12-2024 08:48-0400 Systolic blood pressure 128 mm[Hg] Araseli Can CLINICAL PROGRAMMER - CRISIS COUNSELOR Work Phone: [facility] 11-10-2024 13:00-0400 Body mass index (BMI) [Ratio] 33.93 kg/m2 Araseli Can CLINICAL PROGRAMMER - CRISIS COUNSELOR Work Phone: [facility] 11-10-2024 13:00-0400 Body temperature 98.4 [degF] Araseli Can CLINICAL PROGRAMMER - CRISIS COUNSELOR Work Phone: [facility] 11-10-2024 13:00-0400 Body weight 95.35 kg Araseli Can CLINICAL PROGRAMMER - CRISIS COUNSELOR Work Phone: [facility] 11-10-2024 13:00-0400 Diastolic blood pressure 72 mm[Hg] Araseli Can CLINICAL PROGRAMMER - CRISIS COUNSELOR Work Phone: [facility] 11-10-2024 13:00-0400 Heart rate 61 /min Araseli Can CLINICAL PROGRAMMER - CRISIS COUNSELOR Work Phone: [facility] 11-10-2024 13:00-0400 Respiratory rate 15 /min Araseli Can CLINICAL PROGRAMMER - CRISIS COUNSELOR Work Phone: [facility] 11-10-2024 13:00-0400 SaO2% (BldA) [Mass fraction] 99 % Araseli Can CLINICAL PROGRAMMER - CRISIS COUNSELOR Work Phone: [facility] 11-10-2024 13:00-0400 Systolic blood pressure 134 mm[Hg] Araseli Can CLINICAL PROGRAMMER - CRISIS COUNSELOR Work Phone: [facility] 11-06-2024 10:10-0400 Body mass index (BMI) [Ratio] 34.38 kg/m2 Araseli Can CLINICAL PROGRAMMER - CRISIS COUNSELOR Work Phone: [facility] 11-06-2024 10:10-0400 Body temperature 98.2 [degF] Araseli Can CLINICAL PROGRAMMER - CRISIS COUNSELOR Work Phone: [facility] 11-06-2024 10:10-0400 Body weight 96.62 kg Araseli Can CLINICAL PROGRAMMER - CRISIS COUNSELOR Work Phone: [facility] 11-06-2024 10:10-0400 Diastolic blood pressure 92 mm[Hg] Araseli Can CLINICAL PROGRAMMER - CRISIS COUNSELOR Work Phone: [facility] 11-06-2024 10:10-0400 Heart rate 93 /min Araseli Can CLINICAL PROGRAMMER - CRISIS COUNSELOR Work Phone: [facility] 11-06-2024 10:10-0400 Respiratory rate 15 /min Araseli Can CLINICAL PROGRAMMER - CRISIS COUNSELOR Work Phone: [facility] 11-06-2024 10:10-0400 SaO2% (BldA) [Mass fraction] 99 % Araseli Can CLINICAL PROGRAMMER - CRISIS COUNSELOR Work Phone: [facility] 11-06-2024 10:10-0400 Systolic blood pressure 131 mm[Hg] Araseli Can CLINICAL PROGRAMMER - CRISIS COUNSELOR Work Phone: [facility] 11-05-2024 11:31-0400 Body temperature 97.5 [degF] Damon Vu MD Work Phone: [facility] 11-05-2024 11:31-0400 Diastolic blood pressure 71 mm[Hg] Damon Vu MD Work Phone: [facility] 11-05-2024 11:31-0400 Heart rate 82 /min Damon Vu MD Work Phone: [facility] 11-05-2024 11:31-0400 Respiratory rate 16 /min Damon Vu MD Work Phone: [facility] 11-05-2024 11:31-0400 SaO2% (BldA) [Mass fraction] 100 % Damon Vu MD Work Phone: [facility] 11-05-2024 11:31-0400 Systolic blood pressure 111 mm[Hg] Damon Vu MD Work Phone: [facility] 11-05-2024 05:39-0400 Body mass index (BMI) [Ratio] 35.19 kg/m2 Damon Vu MD Work Phone: [facility] 11-05-2024 05:39-0400 Body weight 98.88 kg Damon Vu MD Work Phone: [facility] 11-03-2024 10:33-0400 Body height 167.6 cm Damon Vu MD Work Phone: [facility] 05-07-2024 13:41-0400 Body temperature 97.9 [degF] Jerome Perdomo MD Work Phone: [facility] 05-07-2024 13:41-0400 Diastolic blood pressure 111 mm[Hg] Jerome Perdomo MD Work Phone: [facility] 05-07-2024 13:41-0400 Heart rate 73 /min Jerome Perdomo MD Work Phone: [facility] 05-07-2024 13:41-0400 Respiratory rate 16 /min Jerome Perdomo MD Work Phone: [facility] 05-07-2024 13:41-0400 Systolic blood pressure 183 mm[Hg] Jerome Perdomo MD Work Phone: [facility] 04-23-2024 11:30-0400 Body temperature 98.4 [degF] Jerome Perdomo MD Work Phone: [facility] 04-23-2024 11:30-0400 Diastolic blood pressure 77 mm[Hg] Jerome Perdomo MD Work Phone: [facility] 04-23-2024 11:30-0400 Heart rate 64 /min Jerome Perdomo MD Work Phone: [facility] 04-23-2024 11:30-0400 Respiratory rate 18 /min Jerome Perdomo MD Work Phone: [facility] 04-23-2024 11:30-0400 Systolic blood pressure 181 mm[Hg] Jerome Perdomo MD Work Phone: [facility] 04-09-2024 13:49-0400 Body temperature 97.9 [degF] Jerome Perdomo MD Work Phone: [facility] 04-09-2024 13:49-0400 Diastolic blood pressure 90 mm[Hg] Jerome Perdomo MD Work Phone: [facility] 04-09-2024 13:49-0400 Heart rate 69 /min Jerome Perdomo MD Work Phone: [facility] 04-09-2024 13:49-0400 Respiratory rate 18 /min Jerome Perdomo MD Work Phone: [facility] 04-09-2024 13:49-0400 Systolic blood pressure 168 mm[Hg] Jerome Perdomo MD Work Phone: [facility] 03-26-2024 15:03-0400 Body height 167.6 cm Lyric Walkerney CLINICAL PROGRAMMER - CRISIS COUNSELOR Work Phone: [facility] 03-26-2024 15:03-0400 Body mass index (BMI) [Ratio] 41.21 kg/m2 Lyric Walkerney CLINICAL PROGRAMMER - CRISIS COUNSELOR Work Phone: [facility] 03-26-2024 15:03-0400 Body weight 115.8 kg Lyric Cruz CLINICAL PROGRAMMER - CRISIS COUNSELOR Work Phone: [facility] 03-26-2024 15:03-0400 Diastolic blood pressure 84 mm[Hg] Lyric BurtKinney CLINICAL PROGRAMMER - CRISIS COUNSELOR Work Phone: [facility] 03-26-2024 15:03-0400 Heart rate 66 /min Lyric BurtKinney CLINICAL PROGRAMMER - CRISIS COUNSELOR Work Phone: [facility] 03-26-2024 15:03-0400 Systolic blood pressure 132 mm[Hg] Lyric Cruz CLINICAL PROGRAMMER - CRISIS COUNSELOR Work Phone: [facility] 03-26-2024 11:10-0400 Body temperature 98.01 [degF] Jerome Perdomo MD Work Phone: [facility] 03-26-2024 11:10-0400 Diastolic blood pressure 87 mm[Hg] Jerome Perdomo MD Work Phone: [facility] 03-26-2024 11:10-0400 Heart rate 61 /min Jerome Perdomo MD Work Phone: [facility] 03-26-2024 11:10-0400 Respiratory rate 16 /min Jerome Perdomo MD Work Phone: [facility] 03-26-2024 11:10-0400 Systolic blood pressure 164 mm[Hg] Jerome Perdomo MD Work Phone: [facility] 03-14-2024 15:05-0400 Body height 167.6 cm Christy Rizzo MD Work Phone: [facility] 03-14-2024 15:05-0400 Body mass index (BMI) [Ratio] 41.16 kg/m2 Christy Rizzo MD Work Phone: [facility] 03-14-2024 15:05-0400 Body weight 115.67 kg Christy Rizzo MD Work Phone: [facility] 03-12-2024 14:10-0400 Body temperature 97.81 [degF] Jerome Perdomo MD Work Phone: [facility] 03-12-2024 14:10-0400 Diastolic blood pressure 76 mm[Hg] Jerome Perdomo MD Work Phone: [facility] 03-12-2024 14:10-0400 Heart rate 80 /min Jerome Perdomo MD Work Phone: [facility] 03-12-2024 14:10-0400 Systolic blood pressure 135 mm[Hg] Jerome Perdomo MD Work Phone: [facility] 03-04-2024 15:15-0400 Body height 167.6 cm Anjana Frandy CLINICAL PROGRAMMER - CRISIS COUNSELOR Work Phone: [facility] 03-04-2024 15:15-0400 Body mass index (BMI) [Ratio] 41.19 kg/m2 Anjana Frandy CLINICAL PROGRAMMER - CRISIS COUNSELOR Work Phone: [facility] 03-04-2024 15:15-0400 Body weight 115.76 kg Anjana Frandy CLINICAL PROGRAMMER - CRISIS COUNSELOR Work Phone: [facility] 03-04-2024 15:15-0400 Diastolic blood pressure 96 mm[Hg] Anjana Kingod CLINICAL PROGRAMMER - CRISIS COUNSELOR Work Phone: [facility] 03-04-2024 15:15-0400 Heart rate 73 /min Anjana Frandy CLINICAL PROGRAMMER - CRISIS COUNSELOR Work Phone: [facility] 03-04-2024 15:15-0400 Systolic blood pressure 200 mm[Hg] Anjana Kingod CLINICAL PROGRAMMER - CRISIS COUNSELOR Work Phone: [facility] 02-27-2024 11:44-0400 Body temperature 97.5 [degF] Jerome Perdomo MD Work Phone: [facility] 02-27-2024 11:44-0400 Diastolic blood pressure 95 mm[Hg] Jerome Perdomo MD Work Phone: [facility] 02-27-2024 11:44-0400 Heart rate 80 /min Jerome Perdomo MD Work Phone: [facility] 02-27-2024 11:44-0400 Respiratory rate 18 /min Jerome Perdomo MD Work Phone: [facility] 02-27-2024 11:44-0400 Systolic blood pressure 202 mm[Hg] Jerome Perdomo MD Work Phone: [facility] 02-13-2024 13:43-0400 Body temperature 97.81 [degF] Jerome Perdomo MD Work Phone: [facility] 02-13-2024 13:43-0400 Diastolic blood pressure 96 mm[Hg] Jerome Perdomo MD Work Phone: [facility] 02-13-2024 13:43-0400 Heart rate 70 /min Jerome Perdomo MD Work Phone: [facility] 02-13-2024 13:43-0400 Respiratory rate 16 /min Jerome Perdomo MD Work Phone: [facility] 02-13-2024 13:43-0400 Systolic blood pressure 185 mm[Hg] Jerome Perdomo MD Work Phone: [facility] 01-30-2024 11:45-0400 Body temperature 98.4 [degF] Jerome Perdomo MD Work Phone: [facility] 01-30-2024 11:45-0400 Diastolic blood pressure 97 mm[Hg] Jerome Perdomo MD Work Phone: [facility] 01-30-2024 11:45-0400 Heart rate 74 /min Jerome Perdomo MD Work Phone: [facility] 01-30-2024 11:45-0400 Respiratory rate 18 /min Jerome Perdomo MD Work Phone: [facility] 01-30-2024 11:45-0400 Systolic blood pressure 180 mm[Hg] Jerome Perdomo MD Work Phone: [facility] 01-16-2024 15:47-0400 Body temperature 97.9 [degF] Jerome Perdomo MD Work Phone: [facility] 01-16-2024 15:47-0400 Diastolic blood pressure 82 mm[Hg] Jerome Perdomo MD Work Phone: [facility] 01-16-2024 15:47-0400 Heart rate 70 /min Jerome Perdomo MD Work Phone: [facility] 01-16-2024 15:47-0400 Respiratory rate 20 /min Jerome Perdomo MD Work Phone: [facility] 01-16-2024 15:47-0400 Systolic blood pressure 162 mm[Hg] Jerome Perdomo MD Work Phone: [facility] 2024 11:52-0400 Body temperature 97.59 [degF] Jerome Perdomo MD Work Phone: [facility] 2024 11:52-0400 Diastolic blood pressure 74 mm[Hg] Jerome Perdomo MD Work Phone: [facility] 2024 11:52-0400 Heart rate 74 /min Jerome Perdomo MD Work Phone: [facility] 2024 11:52-0400 Respiratory rate 18 /min Jerome Perdomo MD Work Phone: [facility] 2024 11:52-0400 Systolic blood pressure 155 mm[Hg] Jerome Perdomo MD Work Phone: [facility] 12-20-2023 16:27-0400 Body temperature 97.59 [degF] Jerome Perdomo MD Work Phone: [facility] 12-20-2023 16:27-0400 Diastolic blood pressure 84 mm[Hg] Jerome Perdomo MD Work Phone: [facility] 12-20-2023 16:27-0400 Heart rate 74 /min Jerome Perdomo MD Work Phone: [facility] 12-20-2023 16:27-0400 Respiratory rate 18 /min Jerome Perdomo MD Work Phone: [facility] 12-20-2023 16:27-0400 Systolic blood pressure 142 mm[Hg] Jerome Perdomo MD Work Phone: [facility] 12-05-2023 11:27-0400 Diastolic blood pressure 74 mm[Hg] Jerome Perdomo MD Work Phone: [facility] 12-05-2023 11:27-0400 Heart rate 64 /min Jerome Perdomo MD Work Phone: [facility] 12-05-2023 11:27-0400 Respiratory rate 18 /min Jerome Perdomo MD Work Phone: [facility] 12-05-2023 11:27-0400 Systolic blood pressure 175 mm[Hg] Jerome Perdomo MD Work Phone: [facility] 11-07-2023 11:48-0400 Body temperature 98.1 [degF] Jerome Perdomo MD Work Phone: [facility] 11-07-2023 11:48-0400 Respiratory rate 18 /min Jerome Perdomo MD Work Phone: [facility] 11-02-2023 15:29-0400 Body height 167.6 cm Lyric Cruz CLINICAL PROGRAMMER - CRISIS COUNSELOR Work Phone: [facility] 11-02-2023 15:29-0400 Body mass index (BMI) [Ratio] 43.48 kg/m2 Lyric Cruz CLINICAL PROGRAMMER - CRISIS COUNSELOR Work Phone: [facility] 11-02-2023 15:29-0400 Body weight 122.2 kg Lyric Cruz CLINICAL PROGRAMMER - CRISIS COUNSELOR Work Phone: [facility] 11-02-2023 15:29-0400 Diastolic blood pressure 80 mm[Hg] Lyric Cruz CLINICAL PROGRAMMER - CRISIS COUNSELOR Work Phone: [facility] 11-02-2023 15:29-0400 Heart rate 74 /min Lyric Cruz CLINICAL PROGRAMMER - CRISIS COUNSELOR Work Phone: [facility] 11-02-2023 15:29-0400 Systolic blood pressure 110 mm[Hg] Lyric Cruz CLINICAL PROGRAMMER - CRISIS COUNSELOR Work Phone: [facility] 11-01-2023 15:26-0400 Body mass index (BMI) [Ratio] 43.26 kg/m2 Anjana Frandy CLINICAL PROGRAMMER - CRISIS COUNSELOR Work Phone: [facility] 11-01-2023 15:26-0400 Body weight 121.56 kg Anjana Frandy CLINICAL PROGRAMMER - CRISIS COUNSELOR Work Phone: [facility] 11-01-2023 15:26-0400 Diastolic blood pressure 89 mm[Hg] Anjana Frandy CLINICAL PROGRAMMER - CRISIS COUNSELOR Work Phone: [facility] 11-01-2023 15:26-0400 Heart rate 80 /min Anjana Frandy CLINICAL PROGRAMMER - CRISIS COUNSELOR Work Phone: [facility] 11-01-2023 15:26-0400 Systolic blood pressure 138 mm[Hg] Anjana Frandy CLINICAL PROGRAMMER - CRISIS COUNSELOR Work Phone: [facility] 10-24-2023 11:40-0400 Body temperature 98.1 [degF] Jerome Perdomo MD Work Phone: [facility] 10-24-2023 11:40-0400 Diastolic blood pressure 73 mm[Hg] Jerome Perdomo MD Work Phone: [facility] 10-24-2023 11:40-0400 Heart rate 59 /min Jerome Perdomo MD Work Phone: [facility] 10-24-2023 11:40-0400 Respiratory rate 20 /min Jerome Perdomo MD Work Phone: [facility] 10-24-2023 11:40-0400 Systolic blood pressure 170 mm[Hg] Jerome Perdomo MD Work Phone: [facility] 10-10-2023 13:34-0400 Body temperature 97.59 [degF] Jerome Perdomo MD Work Phone: [facility] 10-10-2023 13:34-0400 Diastolic blood pressure 85 mm[Hg] Jerome Perdomo MD Work Phone: [facility] 10-10-2023 13:34-0400 Heart rate 65 /min Jerome Perdomo MD Work Phone: [facility] 10-10-2023 13:34-0400 Respiratory rate 16 /min Jerome Perdomo MD Work Phone: [facility] 10-10-2023 13:34-0400 Systolic blood pressure 162 mm[Hg] Jerome Perdomo MD Work Phone: [facility] 09-26-2023 11:22-0500 Body temperature 98.1 [degF] Jerome Perdomo MD Work Phone: [facility] 09-26-2023 11:22-0500 Diastolic blood pressure 92 mm[Hg] Jerome Perdomo MD Work Phone: [facility] 09-26-2023 11:22-0500 Heart rate 66 /min Jerome Perdomo MD Work Phone: [facility] 09-26-2023 11:22-0500 Respiratory rate 20 /min Jerome Perdomo MD Work Phone: [facility] 09-26-2023 11:22-0500 Systolic blood pressure 158 mm[Hg] Jerome Perdomo MD Work Phone: [facility] 09-13-2023 15:34-0500 Body temperature 98.1 [degF] Jerome Perdomo MD Work Phone: [facility] 09-13-2023 15:34-0500 Diastolic blood pressure 92 mm[Hg] Jerome Perdomo MD Work Phone: [facility] Comment on above: Seeing family doctor on Sunday09-13-2023 15:34-0500 Heart rate 66 /min Jerome Perdomo MD Work Phone: [facility] 09-13-2023 15:34-0500 Respiratory rate 20 /min Jerome Perdomo MD Work Phone: [facility] 09-13-2023 15:34-0500 Systolic blood pressure 158 mm[Hg] Jerome Pedromo MD Work Phone: [facility] Comment on above: Seeing family doctor on Sunday09-11-2023 14:34-0500 Body height 167.6 cm Ino He MD Work Phone: [facility] 09-11-2023 14:34-0500 Body mass index (BMI) [Ratio] 42.09 kg/m2 Ino He MD Work Phone: [facility] 09-11-2023 14:34-0500 Body temperature 98.2 [degF] Ino He MD Work Phone: [facility] 09-11-2023 14:34-0500 Body weight 118.3 kg Ino He MD Work Phone: [facility] 09-11-2023 14:34-0500 Diastolic blood pressure 86 mm[Hg] Ino He MD Work Phone: [facility] 09-11-2023 14:34-0500 Heart rate 79 /min Ino He MD Work Phone: [facility] 09-11-2023 14:34-0500 Respiratory rate 18 /min Ino He MD Work Phone: [facility] 09-11-2023 14:34-0500 SaO2% (BldA) [Mass fraction] 97 % Ino He MD Work Phone: [facility] 09-11-2023 14:34-0500 Systolic blood pressure 180 mm[Hg] Ino He MD Work Phone: [facility] 08-29-2023 11:22-0500 Body temperature 98.1 [degF] Jerome Perdomo MD Work Phone: [facility] 08-29-2023 11:22-0500 Diastolic blood pressure 76 mm[Hg] Jerome Perdomo MD Work Phone: [facility] 08-29-2023 11:22-0500 Heart rate 61 /min Jerome Perdomo MD Work Phone: [facility] 08-29-2023 11:22-0500 Respiratory rate 20 /min Jerome Perdomo MD Work Phone: [facility] 08-29-2023 11:22-0500 Systolic blood pressure 175 mm[Hg] Jerome Perdomo MD Work Phone: [facility] 08-15-2023 15:59-0500 Body temperature 98.71 [degF] Jerome Perdomo MD Work Phone: [facility] 08-15-2023 15:59-0500 Diastolic blood pressure 96 mm[Hg] Jerome Perdomo MD Work Phone: [facility] 08-15-2023 15:59-0500 Heart rate 60 /min Jerome Perdomo MD Work Phone: [facility] 08-15-2023 15:59-0500 Respiratory rate 16 /min Jerome Perdomo MD Work Phone: [facility] 08-15-2023 15:59-0500 Systolic blood pressure 184 mm[Hg] Jerome Perdomo MD Work Phone: [facility] 08-01-2023 11:44-0500 Body temperature 97.7 [degF] Jerome Perdomo MD Work Phone: [facility] 08-01-2023 11:44-0500 Diastolic blood pressure 84 mm[Hg] Jerome Perdomo MD Work Phone: [facility] 08-01-2023 11:44-0500 Heart rate 74 /min Jerome Perdomo MD Work Phone: [facility] 08-01-2023 11:44-0500 Respiratory rate 18 /min Jerome Perdomo MD Work Phone: [facility] 08-01-2023 11:44-0500 Systolic blood pressure 196 mm[Hg] Jerome Perdomo MD Work Phone: [facility] 07-18-2023 11:39-0500 Body temperature 98.2 [degF] Jerome Perdomo MD Work Phone: [facility] 07-18-2023 11:39-0500 Diastolic blood pressure 72 mm[Hg] Jerome Perdomo MD Work Phone: [facility] 07-18-2023 11:39-0500 Heart rate 83 /min Jerome Perdomo MD Work Phone: [facility] 07-18-2023 11:39-0500 Respiratory rate 16 /min Jerome Perdomo MD Work Phone: [facility] 07-18-2023 11:39-0500 Systolic blood pressure 197 mm[Hg] Jerome Perdomo MD Work Phone: [facility] 07-04-2023 16:04-0500 Body temperature 98.1 [degF] Jerome Perdomo MD Work Phone: [facility] 07-04-2023 16:04-0500 Diastolic blood pressure 84 mm[Hg] Jerome Perdomo MD Work Phone: [facility] 07-04-2023 16:04-0500 Heart rate 74 /min Jerome Perdomo MD Work Phone: [facility] 07-04-2023 16:04-0500 Respiratory rate 18 /min Jerome Perdomo MD Work Phone: [facility] 07-04-2023 16:04-0500 Systolic blood pressure 145 mm[Hg] Jerome Perdomo MD Work Phone: [facility] 06-06-2023 16:08-0500 Body temperature 97.59 [degF] Jerome Perdomo MD Work Phone: [facility] 06-06-2023 16:08-0500 Diastolic blood pressure 74 mm[Hg] Jerome Perdomo MD Work Phone: [facility] 06-06-2023 16:08-0500 Heart rate 76 /min Jerome Perdomo MD Work Phone: [facility] 06-06-2023 16:08-0500 Respiratory rate 18 /min Jerome Perdomo MD Work Phone: [facility] 06-06-2023 16:08-0500 Systolic blood pressure 146 mm[Hg] Jerome Perdomo MD Work Phone: [facility] 05-23-2023 12:12-0400 Body temperature 98.91 [degF] Jerome Perdomo MD Work Phone: [facility] 05-23-2023 12:12-0400 Diastolic blood pressure 82 mm[Hg] Jerome Perdomo MD Work Phone: [facility] 05-23-2023 12:12-0400 Heart rate 69 /min Jerome Perdomo MD Work Phone: [facility] 05-23-2023 12:12-0400 Respiratory rate 18 /min Jerome Perdomo MD Work Phone: [facility] 05-23-2023 12:12-0400 Systolic blood pressure 160 mm[Hg] Jerome Perdomo MD Work Phone: [facility] 05-09-2023 15:30-0400 Body height 167.6 cm Bridget Alcantara MD Work Phone: [facility] 05-09-2023 15:30-0400 Body mass index (BMI) [Ratio] 44.22 kg/m2 Bridget Alcantara MD Work Phone: [facility] 05-09-2023 15:30-0400 Body weight 124.29 kg Bridget Alcantara MD Work Phone: [facility] 05-09-2023 15:30-0400 Diastolic blood pressure 80 mm[Hg] Bridget Alcantara MD Work Phone: [facility] 05-09-2023 15:30-0400 Systolic blood pressure 158 mm[Hg] Bridget Alcantara MD Work Phone: [facility] 05-08-2023 11:52-0400 Body temperature 97.81 [degF] Jerome Perdomo MD Work Phone: [facility] 05-08-2023 11:52-0400 Diastolic blood pressure 77 mm[Hg] Jerome Perdomo MD Work Phone: [facility] 05-08-2023 11:52-0400 Heart rate 93 /min Jerome Perdomo MD Work Phone: [facility] 05-08-2023 11:52-0400 Respiratory rate 18 /min Jerome Perdomo MD Work Phone: [facility] 05-08-2023 11:52-0400 Systolic blood pressure 181 mm[Hg] Jerome Perdomo MD Work Phone: [facility] 04-25-2023 12:11-0400 Body temperature 96.8 [degF] Jerome Perdomo MD Work Phone: [facility] 04-25-2023 12:11-0400 Diastolic blood pressure 81 mm[Hg] Jerome Perdomo MD Work Phone: [facility] 04-25-2023 12:11-0400 Heart rate 64 /min Jerome Perdomo MD Work Phone: [facility] 04-25-2023 12:11-0400 Respiratory rate 20 /min Jerome Perdomo MD Work Phone: [facility] 04-25-2023 12:11-0400 Systolic blood pressure 144 mm[Hg] Jerome Perdomo MD Work Phone: [facility] 04-17-2023 11:37-0400 Body temperature 98.4 [degF] Jerome Perdomo MD Work Phone: [facility] 04-17-2023 11:37-0400 Diastolic blood pressure 84 mm[Hg] Jerome Perdomo MD Work Phone: [facility] 04-17-2023 11:37-0400 Heart rate 58 /min Jerome Perdomo MD Work Phone: [facility] 04-17-2023 11:37-0400 Respiratory rate 20 /min Jerome Perdomo MD Work Phone: [facility] 04-17-2023 11:37-0400 Systolic blood pressure 194 mm[Hg] Jerome Perdomo MD Work Phone: [facility] 04-11-2023 11:24-0400 Body temperature 97.9 [degF] Jerome Perdomo MD Work Phone: [facility] 04-11-2023 11:24-0400 Diastolic blood pressure 79 mm[Hg] Jerome Perdomo MD Work Phone: [facility] 04-11-2023 11:24-0400 Heart rate 68 /min Jerome Perdomo MD Work Phone: [facility] 04-11-2023 11:24-0400 Respiratory rate 16 /min Jerome Perdomo MD Work Phone: [facility] 04-11-2023 11:24-0400 Systolic blood pressure 190 mm[Hg] Jerome Perdomo MD Work Phone: [facility] 04-09-2023 13:08-0400 Body temperature 98.4 [degF] Jerome Perdomo MD Work Phone: [facility] 04-09-2023 13:08-0400 Diastolic blood pressure 73 mm[Hg] Jerome Perdomo MD Work Phone: [facility] 04-09-2023 13:08-0400 Heart rate 69 /min Jerome Perdomo MD Work Phone: [facility] 04-09-2023 13:08-0400 Respiratory rate 16 /min Jerome Perdomo MD Work Phone: [facility] 04-09-2023 13:08-0400 Systolic blood pressure 184 mm[Hg] Jerome Perdomo MD Work Phone: [facility] 03-28-2023 11:50-0400 Diastolic blood pressure 83 mm[Hg] Jerome Perdomo MD Work Phone: [facility] 03-28-2023 11:50-0400 Heart rate 61 /min Jerome Perdomo MD Work Phone: [facility] 03-28-2023 11:50-0400 Respiratory rate 20 /min Jerome Perdomo MD Work Phone: [facility] 03-28-2023 11:50-0400 Systolic blood pressure 147 mm[Hg] Jerome Perdomo MD Work Phone: [facility] 03-14-2023 11:49-0400 Body temperature 97.5 [degF] Jerome Perdomo MD Work Phone: [facility] 03-14-2023 11:49-0400 Diastolic blood pressure 88 mm[Hg] Jerome Perdomo MD Work Phone: [facility] 03-14-2023 11:49-0400 Heart rate 63 /min Jerome Perdomo MD Work Phone: [facility] 03-14-2023 11:49-0400 Respiratory rate 20 /min Jerome Perdomo MD Work Phone: [facility] 03-14-2023 11:49-0400 Systolic blood pressure 191 mm[Hg] Jerome Perdomo MD Work Phone: [facility] 03-02-2023 14:07-0400 Body height 167.6 cm Ino He MD Work Phone: [facility] 03-02-2023 14:07-0400 Body mass index (BMI) [Ratio] 45.35 kg/m2 Ino He MD Work Phone: [facility] 03-02-2023 14:07-0400 Body temperature 96.91 [degF] Ino He MD Work Phone: [facility] 03-02-2023 14:07-0400 Body weight 127.46 kg Ino He MD Work Phone: [facility] 03-02-2023 14:07-0400 Diastolic blood pressure 79 mm[Hg] Ino He MD Work Phone: [facility] 03-02-2023 14:07-0400 Respiratory rate 18 /min Ino eH MD Work Phone: [facility] 03-02-2023 14:07-0400 SaO2% (BldA) [Mass fraction] 97 % Ino He MD Work Phone: [facility] 03-02-2023 14:07-0400 Systolic blood pressure 193 mm[Hg] Ino He MD Work Phone: [facility] 02-14-2023 11:35-0400 Body temperature 98.1 [degF] Jerome Perdomo MD Work Phone: [facility] 02-14-2023 11:35-0400 Diastolic blood pressure 86 mm[Hg] Jerome Perdomo MD Work Phone: [facility] 02-14-2023 11:35-0400 Heart rate 66 /min Jerome Perdomo MD Work Phone: [facility] 02-14-2023 11:35-0400 Respiratory rate 20 /min Jerome Perdomo MD Work Phone: [facility] 02-14-2023 11:35-0400 Systolic blood pressure 181 mm[Hg] Jerome Perdomo MD Work Phone: [facility] 01-31-2023 11:42-0400 Body temperature 98.2 [degF] Jerome Perdomo MD Work Phone: [facility] 01-31-2023 11:42-0400 Diastolic blood pressure 83 mm[Hg] Jerome Perdomo MD Work Phone: [facility] 01-31-2023 11:42-0400 Heart rate 61 /min Jerome Perdomo MD Work Phone: [facility] 01-31-2023 11:42-0400 Respiratory rate 20 /min Jerome Perdomo MD Work Phone: [facility] 01-31-2023 11:42-0400 Systolic blood pressure 191 mm[Hg] Jerome Perdomo MD Work Phone: [facility] 01-19-2023 15:30-0400 Body height 167.6 cm Lyric Cruz APRN - CRISIS COUNSELOR Work Phone: [facility] 01-19-2023 15:30-0400 Body mass index (BMI) [Ratio] 45.89 kg/m2 Lyric Cruz CLINICAL PROGRAMMER - CRISIS COUNSELOR Work Phone: [facility] 01-19-2023 15:30-0400 Body weight 128.96 kg Lyric Cruz APRN - CRISIS COUNSELOR Work Phone: [facility] 01-19-2023 15:30-0400 Diastolic blood pressure 88 mm[Hg] Lyric Cruz APRN - CRISIS COUNSELOR Work Phone: [facility] 01-19-2023 15:30-0400 Heart rate 64 /min Lyric Cruz CLINICAL PROGRAMMER - CRISIS COUNSELOR Work Phone: [facility] 01-19-2023 15:30-0400 Systolic blood pressure 128 mm[Hg] Lyric Cruz CLINICAL PROGRAMMER - CRISIS COUNSELOR Work Phone: [facility] 01-17-2023 11:37-0400 Body temperature 97 [degF] Jerome Perdomo MD Work Phone: [facility] 01-17-2023 11:37-0400 Diastolic blood pressure 76 mm[Hg] Jerome Perdomo MD Work Phone: [facility] 01-17-2023 11:37-0400 Heart rate 76 /min Jerome Perdomo MD Work Phone: [facility] 01-17-2023 11:37-0400 Systolic blood pressure 152 mm[Hg] Jerome Perdomo MD Work Phone: [facility] 01-03-2023 16:13-0400 Body temperature 97.39 [degF] Jerome Perdomo MD Work Phone: [facility] 01-03-2023 16:13-0400 Diastolic blood pressure 90 mm[Hg] Jerome Perdomo MD Work Phone: [facility] 01-03-2023 16:13-0400 Heart rate 90 /min Jerome Perdomo MD Work Phone: [facility] 01-03-2023 16:13-0400 Respiratory rate 20 /min Jerome Perdomo MD Work Phone: [facility] 01-03-2023 16:13-0400 Systolic blood pressure 187 mm[Hg] Jerome Perdomo MD Work Phone: [facility] 01-03-2023 11:55-0400 Body temperature 97.39 [degF] Jerome Perdomo MD Work Phone: [facility] 01-03-2023 11:55-0400 Diastolic blood pressure 90 mm[Hg] Jerome Perdomo MD Work Phone: [facility] 01-03-2023 11:55-0400 Respiratory rate 20 /min Jerome Perdomo MD Work Phone: [facility] [facility] 01-03-2023 11:55-0400 Systolic blood pressure 187 mm[Hg] Jerome Perdomo MD Work Phone: [facility] 12-20-2022 12:58-0400 Body temperature 97.9 [degF] Jerome Perdomo MD Work Phone: [facility] 12-20-2022 12:58-0400 Diastolic blood pressure 91 mm[Hg] Jerome Perdomo MD Work Phone: [facility] 12-20-2022 12:58-0400 Heart rate 90 /min Jerome Perdomo MD Work Phone: [facility] 12-20-2022 12:58-0400 Respiratory rate 20 /min Jerome Perdomo MD Work Phone: [facility] 12-20-2022 12:58-0400 Systolic blood pressure 178 mm[Hg] Jerome Perdomo MD Work Phone: [facility] 11-24-2022 16:16-0400 Body temperature 97.11 [degF] Jerome Perdomo MD Work Phone: [facility] 11-24-2022 16:16-0400 Diastolic blood pressure 78 mm[Hg] Jerome Perdomo MD Work Phone: [facility] 11-24-2022 16:16-0400 Heart rate 68 /min Jerome Perdomo MD Work Phone: [facility] 11-24-2022 16:16-0400 Respiratory rate 18 /min Jerome Perdomo MD Work Phone: [facility] 11-24-2022 16:16-0400 Systolic blood pressure 155 mm[Hg] Jerome Perdomo MD Work Phone: [facility] 11-22-2022 11:36-0400 Body temperature 98.6 [degF] Jerome Perdoom MD Work Phone: [facility] 11-22-2022 11:36-0400 Diastolic blood pressure 90 mm[Hg] Jerome Perdomo MD Work Phone: [facility] 11-22-2022 11:36-0400 Heart rate 64 /min Jerome Perdomo MD Work Phone: [facility] 11-22-2022 11:36-0400 Respiratory rate 20 /min Jerome Perdomo MD Work Phone: [facility] 11-22-2022 11:36-0400 Systolic blood pressure 166 mm[Hg] Jerome Perdomo MD Work Phone: [facility] 11-08-2022 11:08-0400 Body temperature 98.49 [degF] Jerome Perdomo MD Work Phone: [facility] 11-08-2022 11:08-0400 Diastolic blood pressure 93 mm[Hg] Jerome Perdomo MD Work Phone: [facility] 11-08-2022 11:08-0400 Heart rate 69 /min Jerome Perdomo MD Work Phone: [facility] 11-08-2022 11:08-0400 Respiratory rate 20 /min Jerome Perdomo MD Work Phone: [facility] 11-08-2022 11:08-0400 Systolic blood pressure 163 mm[Hg] Jerome Perdomo MD Work Phone: [facility] 11-03-2022 13:37-0400 Body height 167.6 cm Jaqueline Grayson APRN - CRISIS COUNSELOR Work Phone: [facility] 11-03-2022 13:37-0400 Body mass index (BMI) [Ratio] 45.68 kg/m2 Jaqueline Grayson CLINICAL PROGRAMMER - CRISIS COUNSELOR Work Phone: [facility] 11-03-2022 13:37-0400 Body weight 128.37 kg Jaqueline Grayson APRN - CRISIS COUNSELOR Work Phone: [facility] 11-03-2022 13:37-0400 Diastolic blood pressure 91 mm[Hg] Jaqueline Grayson CLINICAL PROGRAMMER - CRISIS COUNSELOR Work Phone: [facility] 11-03-2022 13:37-0400 Heart rate 73 /min Jaqueline Grayson CLINICAL PROGRAMMER - CRISIS COUNSELOR Work Phone: [facility] 11-03-2022 13:37-0400 Systolic blood pressure 188 mm[Hg] Jaqueline Grayson CLINICAL PROGRAMMER - CRISIS COUNSELOR Work Phone: [facility] 10-25-2022 11:40-0400 Body temperature 97.81 [degF] Jerome Perdomo MD Work Phone: [facility] 10-25-2022 11:40-0400 Diastolic blood pressure 82 mm[Hg] Jerome Perdomo MD Work Phone: [facility] 10-25-2022 11:40-0400 Heart rate 60 /min Jerome Perdomo MD Work Phone: [facility] 10-25-2022 11:40-0400 Respiratory rate 16 /min Jerome Perdomo MD Work Phone: [facility] 10-25-2022 11:40-0400 Systolic blood pressure 169 mm[Hg] Jerome Perdmoo MD Work Phone: [facility] 10-11-2022 13:13-0400 Body temperature 98.2 [degF] Jerome Perdomo MD Work Phone: [facility] 10-11-2022 13:13-0400 Diastolic blood pressure 80 mm[Hg] Jerome Perdomo MD Work Phone: [facility] 10-11-2022 13:13-0400 Heart rate 77 /min Jerome Perdomo MD Work Phone: [facility] 10-11-2022 13:13-0400 Respiratory rate 18 /min Jerome Perdomo MD Work Phone: [facility] 10-11-2022 13:13-0400 Systolic blood pressure 165 mm[Hg] Jerome Perdomo MD Work Phone: [facility] 09-27-2022 11:31-0500 Body temperature 98.29 [degF] Jerome Perdomo MD Work Phone: [facility] 09-27-2022 11:31-0500 Diastolic blood pressure 77 mm[Hg] Jerome Perdomo MD Work Phone: [facility] 09-27-2022 11:31-0500 Heart rate 65 /min Jerome Perdomo MD Work Phone: [facility] 09-27-2022 11:31-0500 Respiratory rate 20 /min Jerome Perdomo MD Work Phone: [facility] 09-27-2022 11:31-0500 Systolic blood pressure 185 mm[Hg] Jerome Perdomo MD Work Phone: [facility] 09-13-2022 15:28-0500 Body height 167.6 cm Ino He MD Work Phone: [facility] 09-13-2022 15:28-0500 Body mass index (BMI) [Ratio] 45.35 kg/m2 Ino He MD Work Phone: [facility] 09-13-2022 15:28-0500 Body temperature 97.81 [degF] Ino He MD Work Phone: [facility] 09-13-2022 15:28-0500 Body weight 127.46 kg Ino He MD Work Phone: [facility] 09-13-2022 15:28-0500 Diastolic blood pressure 73 mm[Hg] Ino He MD Work Phone: [facility] 09-13-2022 15:28-0500 Heart rate 74 /min Ino He MD Work Phone: [facility] 09-13-2022 15:28-0500 Respiratory rate 18 /min Ino He MD Work Phone: [facility] 09-13-2022 15:28-0500 Systolic blood pressure 148 mm[Hg] Ino He MD Work Phone: [facility] 09-13-2022 12:07-0500 Body temperature 98.1 [degF] Jerome Perdomo MD Work Phone: [facility] 09-13-2022 12:07-0500 Diastolic blood pressure 86 mm[Hg] Jerome Perdomo MD Work Phone: [facility] 09-13-2022 12:07-0500 Heart rate 82 /min Jerome Perdomo MD Work Phone: [facility] 09-13-2022 12:07-0500 Respiratory rate 18 /min Jerome Perdomo MD Work Phone: [facility] 09-13-2022 12:07-0500 Systolic blood pressure 156 mm[Hg] Jerome Perdomo MD Work Phone: [facility] 10-01-2020 13:21-0500 Body Temperature 98.1 [degF] Cuauhtemoc [...] Evaluation and management of inpatient CUAUHTEMOC MACHADO [facility] Start: 01-03-2025 End: 01-03-2025 Follow-up encounter Cuauhtemoc Stubbs MD Work Phone: [facility] Gynecologic Oncology - [place] Comment on above: PET/CT skull base to mid thigh Start: 2025 End: 2025 Subsequent hospital visit by physician Cuauhtemoc Stubbs MD Work Phone: [facility] PET Comment on above: Multiple lung nodule s; Endometrial cancer (CMS/HCC) (HCC) Start: 2025 End: 2025 ambulatory CUAUHTEMOCBETTINA STUBBS [facility] Start: 01-01-2025 End: 01-01-2025 Telephone encounter Christy Rizzo MD Work Phone: [facility] Communication Start: 12-23-2024 End: 12-23-2024 ambulatory Scotty Hernandez RN [facility] Start: 12-23-2024 End: 12-23-2024 Follow-up encounter Cuauhtemoc Stubbs MD Work Phone: [facility] Comment on above: Tissue exam Start: 12-23-2024 End: 12-23-2024 Patient encounter procedure Scotty Hernandez RN [facility] Start: 12-22-2024 End: 12-22-2024 Subsequent hospital visit by physician Cuauhtemoc Stubbs MD Work Phone: [facility] Imaging Comment on above: Endometrial cancer ( CMS/HCC) (HCC); Multiple lung nodules Start: 12-22-2024 End: 12-22-2024 ambulatory CUAUHTEMOCBETTINA STUBBS [facility] Start: 12-10-2024 End: 12-10-2024 Orders Only Cuauhtemoc Stubbs MD Work Phone: [facility] Comment on above: Endometrial cancer ( CMS/HCC) (HCC) (Primary Dx); Multiple lung nodules Start: 12-08-2024 End: 12-08-2024 Office outpatient visit 15 minutes Cuauhtemoc Stubbs MD Work Phone: [facility] Comment on above: Endometrial cancer ( CMS/HCC) (HCC) (Primary Dx); Multiple lung nodules Start: 12-08-2024 End: 12-08-2024 ambulatory CHRISTY RIZZO [facility] Start: 12-04-2024 End: 12-04-2024 ambulatory Seble Mckinley RN [facility] Start: 12-04-2024 End: 12-04-2024 Patient encounter procedure Seble Mckinley RN [facility] Start: 11-25-2024 End: 11-25-2024 ambulatory Araseli Can CLINICAL PROGRAMMER - CRISIS COUNSELOR Work Phone: [facility] Geriatrics Comment on above: Persistent atrial fi brillation (HCC) (Primary Dx); Type 2 diabetes mellitus with hyperglycemia, with long-term current use of insulin (HCC) Start: 11-21-2024 End: 11-21-2024 ambulatory Marianne Tang MD Work Phone: [facility] Comment on above: Debility (Primary Dx [...] Start: 11-18-2024 End: 11-18-2024 ambulatory Araseli Can CLINICAL PROGRAMMER - CRISIS COUNSELOR Work Phone: [facility] Comment on above: Type 2 diabetes devon itus with hyperglycemia, with long-term current use of insulin (HCC) (Primary Dx); Lymphedema of both lower extremities Start: 11-12-2024 End: 11-12-2024 ambulatory Araseli Can CLINICAL PROGRAMMER - CRISIS COUNSELOR Work Phone: [facility] Comment on above: Lymphedema of both l ower extremities (Primary Dx); Type 2 diabetes mellitus with hyperglycemia, with long-term current use of insulin ([facility]); Vitamin D deficiency Start: 11-11-2024 End: 11-11-2024 ambulatory CHRISTY RIZZO [facility] Start: 11-11-2024 End: 11-11-2024 Subsequent hospital visit by physician Christy Rizzo MD Work Phone: [address] Comment on above: Abnormal weight loss ; Other malaise; Malignant neoplasm of endometrium (HCC); Other amnesia Start: 11-10-2024 End: 11-10-2024 ambulatory Araseli Can CLINICAL PROGRAMMER - CRISIS COUNSELOR Work Phone: [facility] Comment on above: Type 2 diabetes devon itus with hyperglycemia, with long-term current use of insulin (HCC) (Primary Dx); Debility; Poor sleep hygiene Start: 11-07-2024 End: 11-08-2024 ambulatory Marianne Tang MD Work Phone: [facility] Comment on above: Debility (Primary Dx [...] Start: 11-06-2024 End: 11-06-2024 ambulatory Araseli Butts CRISIS COUNSELOR Work Phone: [facility] Comment on above: Persistent atrial fi brillation (HCC) (Primary Dx); Type 2 diabetes mellitus with hyperglycemia, with long-term current use of insulin (HCC); Cognitive decline; Debility; Essential hypertension, benign; Moderate aortic stenosis; Mixed hyperlipidemia; Primary open angle glaucoma of both eyes, mild stage; Acquired hypothyroidism; Vitamin D deficiency Start: 11-05-2024 End: 11-06-2024 Telephone encounter Marianne Tang MD Work Phone: [facility] Start: 11-01-2024 End: 11-05-2024 Evaluation and management of inpatient Damon Vu MD Work Phone: [facility] Cardiac Post Intervention Progressive Care Unit [facility] PCU 4W Comment on above: Persistent atrial fi brillation (HCC) (Primary Dx); Hyperglycemia; Acute cystitis with hematuria; RADHA (obstructive sleep apnea); Acute on chronic diastolic heart failure (HCC); Delirium; Debility; Memory loss; Declining functional status; Weight loss Start: 11-01-2024 End: 01-30-2025 ambulatory Tsering Tian RN [facility] Start: 11-01-2024 End: 01-30-2025 Patient encounter procedure Tsering Tian RN [facility] Communication Start: 10-27-2024 End: 01-26-2025 Transcribe Orders Christy Rizzo MD Work Phone: [facility] Central Scheduling Comment on above: Abnormal weight loss (Primary Dx); Other malaise; Malignant neoplasm of endometrium (HCC); Other amnesia; Heart failure, unspecified (HCC); Nonrheumatic aortic (valve) stenosis; Other general symptoms and signs Start: 05-07-2024 End: 05-07-2024 ambulatory Irvin BRIDGET ARREDONDO [facility] Start: 05-07-2024 End: 05-07-2024 Subsequent hospital visit by physician Jerome Perdomo MD Work Phone: [facility] Wound Care & Hyper[facility] O[facility] - [place] Comment on above: Lymphedema Start: 05-02-2024 End: 05-02-2024 ambulatory MOSES ACEVEDO Facility:[facility] Start: 05-02-2024 End: 05-02-2024 Patient encounter procedure Moses Acevedo MD Work Phone: [facility] [place] Comment on above: Primary open angle g laucoma of both eyes, mild stage (Primary Dx); 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 macular edema, with long-term current use of insulin (HCC); 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; Dry eye syndrome of bilateral lacrimal glands; Refractive error; Dermatochalasis of upper and lower eyelids of both eyes Start: 04-23-2024 ambulatory Irvin ARREDONDO [facility] Start: 04-23-2024 End: 04-23-2024 Office outpatient visit 15 minutes Jerome Perdomo MD Work Phone: [facility] Hyperbaric Oxygen Therapy - [place] Comment on above: Lymphedema (Primary Dx) Start: 04-09-2024 End: 04-09-2024 ambulatory Irvin BRIDGET ARREDONDO [facility] Start: 04-09-2024 End: 04-09-2024 Subsequent hospital visit by physician Jerome Perdomo MD Work Phone: [facility] Hyperbaric Oxygen Therapy - [place] Comment on above: Lymphedema of both l ower extremities Start: 03-26-2024 End: 03-26-2024 Office outpatient visit 25 minutes Lyric Cruz CLINICAL PROGRAMMER navabi Work Phone: [facility] Comment on above: Type 2 diabetes [...] 15 minutes Jerome Perdomo MD Work Phone: [facility] Comment on above: Lymphedema of both l ower extremities (Primary Dx) Start: 03-17-2024 End: 03-18-2024 Telephone encounter Lyric Cruz CLINICAL PROGRAMMER navabi Work Phone: [facility] Comment on above: Appointment Request Start: 03-14-2024 End: 03-14-2024 Subsequent hospital visit by physician Christy Rizzo MD Work Phone: [facility] Comment on above: Essential (primary) hypertension; Cardiac murmur, unspecified Start: 03-12-2024 ambulatory [facility] Start: 03-12-2024 End: 03-12-2024 Subsequent hospital visit by physician Jerome Perdomo MD Work Phone: [facility] Comment on above: Lymphedema Start: 03-04-2024 End: 03-04-2024 Office outpatient visit 15 minutes Anjana Meadows CLINICAL PROGRAMMER navabi Work Phone: [facility] Gynecologic Oncology Comment on above: Vaginal discharge (P rimary Dx); Endometrial cancer (CMS/HCC) (HCC); Obesity with body mass index greater than 30; Lymphedema; Malignant neoplasm of body of uterus, unspecified site (HCC) Start: 02-28-2024 End: 05-29-2024 Transcribe Orders Christy Rizzo MD Work Phone: [facility]uling Comment on above: Essential (primary) hypertension (Primary Dx); Cardiac murmur, unspecified Start: 02-27-2024 End: 02-27-2024 Office outpatient visit 15 minutes Jerome Perdomo MD Work Phone: [facility] Comment on above: Lymphedema (Primary Dx) Start: 02-13-2024 ambulatory [facility] Start: 02-13-2024 End: 02-13-2024 Subsequent hospital visit [...] Telephone encounter Christy Rizzo MD Work Phone: [facility] Clinical Communication Start: 01-16-2024 End: 01-16-2024 Subsequent hospital visit by physician Jerome Perdomo MD Work Phone: [facility] Comment on above: Lymphedema Start: 01-16-2024 ambulatory [facility] Start: 2024 End: 2024 Office outpatient visit 15 minutes Jerome Perdomo MD Work Phone: [facility] Comment on above: Lymphedema (Primary Dx) Start: 12-31-2023 Telephone encounter Anjana Butts CNP Work Phone: [facility]necologic [facility] Start: 12-20-2023 End: 12-20-2023 Subsequent hospital visit by physician Jerome Perdomo MD Work Phone: [facility] Comment on above: Lymphedema Start: 12-19-2023 Telephone encounter Jaqueline Velasquez ashu CLINICAL PROGRAMMER - CRISIS COUNSELOR Work Phone: [facility] Start: 12-19-2023 ambulatory [facility] Start: 12-05-2023 End: 12-05-2023 Office outpatient visit 15 minutes Jerome Perdomo MD Work Phone: [facility] Comment on above: Lymphedema (Primary Dx) Start: 12-04-2023 End: 12-04-2023 Subsequent hospital visit by physician Anjana Meadows CLINICAL PROGRAMMER - CRISIS COUNSELOR Work Phone: [facility] Comment on above: Endometrial cancer ( CMS/HCC) (HCC) Start: 11-21-2023 End: 11-21-2023 Subsequent hospital visit by physician Jerome Perdomo MD Work Phone: [facility] Comment on above: Lymphedema of both l ower extremities Start: 11-21-2023 ambulatory [facility] Start: 11-15-2023 Telephone encounter Cuauhtemoc Stubbs MD Work Phone: [facility] Start: 11-13-2023 End: 11-13-2023 ambulatory MASON JOHNSTON Facility:[facility] Start: 11-13-2023 End: 11-13-2023 Patient encounter procedure Mason Johnston MD Work Phone: [facility] [place] Comment on above: Hypertensive retinop athy, bilateral (Primary Dx); 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 macular edema, with long-term current use of insulin (HCC) Start: 11-07-2023 End: 11-07-2023 Office outpatient visit 15 minutes Jerome Perdomo MD Work Phone: [facility] Comment on above: Lymphedema (Primary Dx) Start: 11-05-2023 Telephone encounter Cuauhtemoc Stubbs MD Work Phone: [facility] Start: 11-02-2023 End: 11-02-2023 Office outpatient visit 25 minutes Lyric Cruz CLINICAL PROGRAMMER - CRISIS COUNSELOR Work Phone: [facility] Comment on above: Type 2 diabetes [...] 11-01-2023 Office outpatient visit 15 minutes Anjana Frandy CLINICAL PROGRAMMER - CRISIS COUNSELOR Work Phone: [facility] Comment on above: Endometrial cancer ( CMS/HCC) (HCC) (Primary Dx); Malignant neoplasm of body of uterus, unspecified site (HCC) Start: 10-26-2023 End: 10-26-2023 ambulatory MOSES ACEVEDO Facility:[facility] Start: 10-26-2023 End: 10-26-2023 Patient encounter procedure Moses Acevedo MD Work Phone: [place] [facility] Comment on above: Primary open angle g laucoma of both eyes, mild stage (Primary Dx); 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; Dry eye syndrome of bilateral lacrimal glands; Cortical cataract of both eyes Start: 10-24-2023 ambulatory KIT Lee [facility] Start: 10-24-2023 End: 10-24-2023 Subsequent hospital visit by physician Jerome Perdomo MD Work Phone: [facility] Comment on above: Arrived Start: 10-10-2023 End: 10-10-2023 Subsequent hospital visit by physician Jerome Perdomo MD Work Phone: [facility] Comment on above: Lymphedema (Primary Dx); Generalized edema Start: 09-30-2023 Everette Alcantara MD Work Phone: [facility] Start: 09-26-2023 ambulatory [facility] Start: 09-26-2023 End: 09-26-2023 Office outpatient visit 15 minutes Jerome Perdomo MD Work Phone: [facility] Comment on above: Lymphedema (Primary Dx) Start: 09-13-2023 End: 09-13-2023 Subsequent hospital visit by physician Jerome Perdomo MD Work Phone: [facility] Comment on above: Lymphedema Start: 09-12-2023 [facility] Start: 09-11-2023 End: 09-11-2023 Office outpatient visit 15 minutes Ino He MD Work Phone: [facility] Comment on above: Endometrial cancer ( CMS/HCC) (HCC) (Primary Dx) Start: 08-29-2023 ambulatory [facility] Start: 08-29-2023 End: 08-29-2023 Office outpatient visit 15 minutes Jerome Perdomo MD Work Phone: [facility] Comment on above: Lymphedema (Primary Dx) Start: 08-27-2023 Telephone encounter Germania Darnell Samuelfranklin CLINICAL PROGRAMMER - CRISIS COUNSELOR Work Phone: [facility] Start: 08-15-2023 End: 08-15-2023 Subsequent hospital visit by physician Jerome Perdomo MD Work Phone: [facility] Comment on above: Lymphedema Start: 08-01-2023 ambulatory [facility] Start: 08-01-2023 End: 08-01-2023 Office outpatient visit [...] Comment on above: Lymphedema Start: 07-04-2023 ambulatory [facility] Start: 06-20-2023 End: 06-20-2023 Office outpatient visit 15 minutes Jerome Perdomo MD Work Phone: [facility] Comment on above: Lymphedema (Primary Dx) Start: 06-06-2023 End: 06-06-2023 Subsequent hospital visit by physician Jerome Perdomo MD Work Phone: [facility] Comment on above: Lymphedema Start: 06-04-2023 ambulatory [facility] Start: 05-23-2023 End: 05-23-2023 Office outpatient visit 15 minutes Jerome Perdomo MD Work Phone: [facility] Comment on above: Lymphedema (Primary Dx) Start: 05-09-2023 End: 05-09-2023 Office outpatient visit 25 minutes Bridget Alcantara MD Work Phone: [facility] Comment on above: 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); Type 2 diabetes mellitus with hyperglycemia, with long-term current use of insulin (HCC); Mixed hyperlipidemia; Primary hypertension Start: 05-09-2023 Telephone encounter Bridget rangel MD Work Phone: [facility] Comment on above: OTHER Start: 05-08-2023 End: 05-08-2023 Subsequent hospital visit by physician Jerome Perdomo MD Work Phone: [facility] Comment on above: Lymphedema (Primary Dx) Start: 04-25-2023 End: 04-25-2023 Office outpatient visit 15 minutes Jerome Perdomo MD Work Phone: [facility] Comment on above: Lymphedema (Primary Dx) Start: 04-17-2023 End: 04-17-2023 Subsequent hospital visit by physician Jerome Perdomo MD Work Phone: [facility] Comment on above: Lymphedema Start: 04-11-2023 End: 04-11-2023 Office outpatient visit 15 minutes Jerome Perdomo MD Work Phone: [facility] Comment on above: Non-pressure chronic ulcer left lower leg, 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) (Primary Dx) Start: 04-10-2023 End: 04-10-2023 Patient encounter procedure Moses Acevedo MD Work Phone: [facility] [place] Comment on above: Primary open angle g [...] physician Jerome Perdomo MD Work Phone: [facility] Comment on above: Non-pressure chronic ulcer left lower leg, 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) (Primary Dx) Non-pressure chronic ulcer left lower leg, 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) (Primary Dx); Lymphedema Start: 03-28-2023 End: 03-28-2023 Subsequent hospital visit by physician Jerome Perdomo MD Work Phone: [facility] Comment on above: Lymphedema Start: 03-23-2023 End: 03-23-2023 Clinical Support [facility] Automatic Gluing Machine Operator [facility] Comment on above: Uncontrolled type 2 diabetes mellitus with hyperglycemia, with long-term current use of insulin (HCC) Start: 03-14-2023 End: 03-14-2023 Office outpatient visit 15 minutes Jerome Perdomo MD Work Phone: [facility] Comment on above: Lymphedema (Primary Dx) Start: 03-02-2023 End: 03-02-2023 Office outpatient visit 15 minutes Ino He MD Work Phone: [facility] Comment on above: Endometrial cancer ( CMS/HCC) (HCC) (Primary Dx) Start: 02-28-2023 End: 02-28-2023 Subsequent hospital visit by physician Jerome Perdomo MD Work Phone: [facility] Comment on above: Arrived Start: 02-14-2023 End: 02-14-2023 Office outpatient visit 15 minutes Jerome Perdomo MD Work Phone: [facility] Comment on above: Lymphedema (Primary Dx) Start: 01-31-2023 End: 01-31-2023 Subsequent hospital visit by physician Jerome Perdomo MD Work Phone: [facility] Comment on above: Lymphedema; Generalized edema Start: 01-19-2023 End: 01-19-2023 Office outpatient visit 25 minutes Lyric Cruz APRN - CRISIS COUNSELOR Work Phone: [facility] Comment on above: Type 2 diabetes [...] 49.9 in adult (HCC); Acquired hypothyroidism; Insulin resistance Start: 01-17-2023 End: 01-17-2023 Office outpatient visit 15 minutes Jerome Perdomo MD Work Phone: [facility] Comment on above: Lymphedema [...] 15 minutes Jaqueline Butts CNP Work Phone: [facility] Comment on above: Endometrial cancer ( CMS/HCC) (HCC) (Primary Dx); Malignant neoplasm of body of uterus, unspecified site (HCC) Start: 10-25-2022 End: 10-25-2022 Office outpatient visit 15 minutes Jerome Perdomo MD Work Phone: [facility] Comment on above: Lymphedema (Primary Dx) Start: 10-11-2022 End: 10-11-2022 Subsequent hospital visit by physician Jerome Perdomo MD Work Phone: [facility] Comment on above: 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) Start: 10-06-2022 Telephone encounter Lyric Martinez CLINICAL PROGRAMMER - CRISIS COUNSELOR Work Phone: [facility] Comment on above: Results (Recent lab results from pcp) Start: 09-27-2022 End: 09-27-2022 Office outpatient visit 15 minutes Jerome Perdomo MD Work Phone: [facility] Comment on above: Lymphedema (Primary Dx) Start: 09-13-2022 End: 09-13-2022 Office outpatient visit 15 minutes Ino He MD Work Phone: [facility] Comment on above: Endometrial cancer ( CMS/HCC) (HCC) (Primary Dx) Start: 09-13-2022 End: 09-13-2022 Subsequent hospital visit by physician Jerome Perdomo MD Work Phone: [facility] Comment on above: Lymphedema [I89.0 (I CD-10-CM)] Start: 08-30-2022 End: 08-30-2022 Office outpatient visit 15 minutes Jerome Perdomo MD Work Phone: [facility] Comment on above: Lymphedema (Primary Dx) Start: 08-02-2022 End: 08-02-2022 Subsequent hospital visit by physician Jerome Perdomo MD Work Phone: [facility] Comment on above: Lymphedema (Primary Dx) Start: 07-31-2022 Telephone encounter Lyric Martinez CLINICAL PROGRAMMER - CRISIS COUNSELOR Work Phone: [facility] [place] Comment on above: Forms/questionnaires Start: 05-10-2022 ambulatory Jeromeniurka Perdomo [facility] Start: 05-10-2022 End: 05-10-2022 Subsequent hospital visit by physician Haile Golden MD Work Phone: [facility] Start: 04-26-2022 End: 04-26-2022 Subsequent hospital visit by physician Haile Golden MD Work Phone: [facility] Start: 04-12-2022 End: 04-12-2022 Subsequent hospital visit by physician Haile Golden MD Work Phone: [facility] Start: 04-06-2022 End: 04-06-2022 Patient encounter procedure Moses Acevedo MD Work Phone: [facility] Comment on above: Type 2 diabetes [...] by physician Haile Golden MD Work Phone: [facility] Start: 03-15-2022 End: 03-15-2022 Subsequent hospital visit by physician Haile Golden Work Phone: [facility] Start: 03-01-2022 ambulatory UNKNOWN PROVIDER [facility] Start: 03-01-2022 End: 03-01-2022 Subsequent hospital visit by physician Ino He MD Work Phone: [facility] Start: 03-01-2022 End: 03-01-2022 Subsequent hospital visit by physician Haile Golden Work Phone: [facility] Start: 02-22-2022 End: 02-22-2022 Subsequent hospital visit by physician Haile Golden Work Phone: [facility] Start: 02-08-2022 End: 02-08-2022 Subsequent hospital visit by physician Haile Golden Work Phone: [facility] Start: 01-25-2022 End: 01-25-2022 Subsequent hospital visit by physician Haile Golden Work Phone: [facility] Start: 01-11-2022 End: 01-11-2022 Subsequent hospital visit by physician Haile Golden Work Phone: [facility] Start: 01-06-2022 End: 01-06-2022 Patient encounter procedure Moses Acevedo MD Work Phone: [facility] Comment on above: Pseudophakia, both e yes (Primary Dx); Combined forms of age-related cataract of both eyes; Primary open angle glaucoma of both eyes, mild stage; 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; Dry eye syndrome of bilateral lacrimal glands; Refractive error Start: 12-28-2021 End: 12-28-2021 Subsequent hospital visit by physician Haile Golden Work Phone: [facility] Start: 12-14-2021 End: 12-14-2021 Subsequent hospital visit by physician Haile Golden Work Phone: [facility] Start: 12-13-2021 End: 12-13-2021 Patient encounter procedure Moses Acevedo MD Work Phone: [facility] Comment on above: Pseudophakia, both e yes (Primary Dx); Combined forms of age-related cataract of both eyes; Primary open angle glaucoma of both eyes, mild stage; 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; Dry eye syndrome of bilateral lacrimal glands Start: 12-07-2021 End: 12-07-2021 Patient encounter procedure Moses Acevedo MD Work Phone: [facility] Comment on above: Pseudophakia, both e yes (Primary Dx); Combined forms of age-related cataract of both eyes; Primary open angle glaucoma of both eyes, mild stage; 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; Dry eye syndrome of bilateral lacrimal glands Start: 12-05-2021 End: 12-05-2021 Subsequent hospital visit by physician Haile Golden Work Phone: [facility] Start: 12-02-2021 Telephone encounter Moses Acevedo MD Work Phone: [facility] Comment on above: Appointment (sx) Preparations For Lisa kareem (iol od) Start: 11-30-2021 End: 11-30-2021 Patient encounter procedure Moses Acevedo MD Work Phone: [facility] Comment on above: Pseudophakia of left eye (Primary Dx); Combined forms of age-related cataract of both eyes Start: 11-28-2021 End: 11-28-2021 Subsequent hospital visit by physician Haile Golden Work Phone: [facility] Start: 11-23-2021 End: 11-23-2021 Patient encounter procedure Moses Acevedo MD Work Phone: [facility] Comment on above: Pseudophakia of left eye (Primary Dx); Combined forms of age-related cataract of both eyes; Primary open angle glaucoma of both eyes, mild stage; 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; Dry eye syndrome of bilateral lacrimal glands Start: 11-18-2021 Telephone encounter Moses Acevedo MD Work Phone: [facility] Comment on above: Preparations For Lisa kareem (iol os) Start: 11-17-2021 Telephone encounter Moses Acevedo MD Work Phone: [facility] Comment on above: Appointment (sx) Start: 11-16-2021 End: 11-16-2021 Subsequent hospital visit by physician Haile Golden Work Phone: [facility] Start: 10-26-2021 End: 10-26-2021 Subsequent hospital visit by physician Haile Golden Work Phone: [facility] Start: 10-21-2021 Telephone encounter Moses Acevedo MD Work Phone: [facility] Comment on above: Appointment (a-scan reminder call) Start: 10-12-2021 End: 10-12-2021 Subsequent hospital visit by physician Haile Golden Work Phone: [facility] [place] Start: 09-28-2021 End: 09-28-2021 Subsequent hospital visit by physician Haile Golden Work Phone: [facility] [place] [facility] Start: 09-01-2021 ambulatory UNKNOWN [facility] Start: 08-31-2021 End: 08-31-2021 Subsequent hospital visit by physician Haile Golden Work Phone: [facility] [place] [facility] Start: 06-29-2021 End: 06-29-2021 Subsequent hospital visit by physician Haile Golden Work Phone: [facility] [place] [facility] Start: 06-22-2021 End: 06-22-2021 Subsequent hospital visit by physician Haile Golden Work Phone: [facility] [place] [facility] Start: 06-15-2021 End: 06-15-2021 Subsequent hospital visit by physician Haile Golden Work Phone: [facility] [place] [facility] Start: 06-08-2021 End: 06-08-2021 Subsequent hospital visit by physician Haile Golden Work Phone: [facility] [place] [facility] Start: 06-01-2021 End: 06-01-2021 Subsequent hospital visit by physician Haile Golden Work Phone: [facility] [place] [facility] Start: 05-25-2021 End: 05-25-2021 Subsequent hospital visit by physician Haile Golden Work Phone: [facility] [place] [facility] Start: 05-18-2021 End: 05-18-2021 Subsequent hospital visit by physician Haile Golden Work Phone: [facility] [place] [facility] Start: 05-04-2021 End: 05-04-2021 Subsequent hospital visit by physician Haile Golden Work Phone: [facility] [place] [facility] Start: 04-27-2021 End: 04-27-2021 Subsequent hospital visit by physician [facility] Start: 04-13-2021 End: 04-13-2021 Subsequent hospital visit by physician Haile Golden Work Phone: [facility] [place] [facility] Start: 03-30-2021 End: 03-30-2021 Subsequent hospital visit by physician Haile Golden [facility] Start: 03-23-2021 End: 03-23-2021 Subsequent hospital visit by physician Haile Golden [facility] Phone[facility] Start: 03-09-2021 End: 03-09-2021 Subsequent hospital visit by physician Haile Golden [facility] Phone[facility] Start: 03-02-2021 End: 03-02-2021 Subsequent hospital visit by physician Haile Golden [facility] Start: 02-23-2021 End: 02-23-2021 Subsequent hospital visit by physician Haile Golden Work Phone: [facility] Start: 02-16-2021 End: 02-16-2021 Subsequent hospital visit by physician Haile Golden Work Phone: [facility] Start: 02-02-2021 End: 02-02-2021 Subsequent hospital visit by physician Haile Golden Work Phone: [facility] Start: 01-28-2021 End: 01-28-2021 Subsequent hospital visit by physician Ino He MD Work Phone: [facility] Start: 01-26-2021 End: 01-26-2021 Subsequent hospital visit by physician Haile Golden Work Phone: [facility] [place] [facility] Start: 01-25-2021 End: 01-25-2021 Subsequent hospital visit by physician Ino He MD Work Phone: [facility] Start: 01-21-2021 End: 01-21-2021 Subsequent hospital visit by physician Ino He MD Work Phone: [facility] Start: 01-19-2021 End: 01-19-2021 Subsequent hospital visit by physician Haile Golden Work Phone: [facility] Start: 01-18-2021 End: 01-18-2021 Subsequent hospital visit by physician Ino He MD Work Phone: [facility] Start: 01-10-2021 End: 01-10-2021 Subsequent hospital visit by physician Ino He MD Work Phone: [facility] Start: 01-05-2021 End: 01-05-2021 Subsequent hospital visit by physician Haile Golden Work Phone: [facility] Start: 12-31-2020 End: 12-31-2020 Subsequent hospital visit by physician Ino He MD Work Phone: [facility] Start: 12-30-2020 End: 12-31-2020 Subsequent hospital visit by physician Ino He MD Work Phone: [facility] Start: 12-29-2020 End: 12-29-2020 Subsequent hospital visit by physician Ino He MD Work Phone: [facility] Start: 12-29-2020 End: 12-29-2020 Subsequent hospital visit by physician Haile Golden Work Phone: [facility] Start: 12-27-2020 End: 12-27-2020 Subsequent hospital visit by physician Ino He MD Work Phone: [facility] Start: 12-24-2020 End: 12-24-2020 Subsequent hospital visit by physician Ino He MD Work Phone: [facility] Start: 12-23-2020 End: 12-23-2020 Subsequent hospital visit by physician Ino He MD Work Phone: [facility] Start: 12-22-2020 End: 12-22-2020 Subsequent hospital visit by physician Ino He MD Work Phone: [facility] Start: 12-22-2020 End: 12-22-2020 Subsequent hospital visit by physician Haile Golden Work Phone: [facility] Start: 12-15-2020 End: 12-15-2020 Subsequent hospital visit by physician Haile Golden Work Phone: [facility] Start: 12-14-2020 End: 12-14-2020 Subsequent hospital visit by physician Ino He MD Work Phone: [facility] Start: 12-10-2020 End: 12-10-2020 Subsequent hospital visit by physician Ino He MD Work Phone: [facility] Start: 12-09-2020 End: 12-09-2020 Subsequent hospital visit by physician Ino He MD Work Phone: [facility] Start: 12-08-2020 End: 12-08-2020 Subsequent hospital visit by physician Haile Golden Work Phone: [facility] Start: 12-03-2020 End: 12-03-2020 Subsequent hospital visit by physician Ino He MD Work Phone: [facility] Start: 12-02-2020 End: 12-03-2020 Subsequent hospital visit by physician Ino He MD Work Phone: [facility] Start: 12-01-2020 End: 12-01-2020 Subsequent hospital visit by physician Haile Golden Work Phone: [facility] Start: 11-30-2020 End: 11-30-2020 Subsequent hospital visit by physician Ino He MD Work Phone: [facility] Start: 11-29-2020 End: 11-29-2020 Subsequent hospital visit by physician Ino He MD Work Phone: [facility] Start: 11-24-2020 End: 11-24-2020 Subsequent hospital visit by physician Haile Golden [facility] Phone: [facility] Start: 11-23-2020 End: 11-23-2020 Subsequent hospital visit by physician Ino He MD Work Phone: [facility] Start: 11-17-2020 End: 11-17-2020 Subsequent hospital visit by physician Haile Golden Work Phone: [facility] Start: 11-10-2020 End: 11-10-2020 Subsequent hospital visit by physician Haile Golden Work Phone: [facility] Start: 11-03-2020 End: 11-03-2020 Subsequent hospital visit by physician Haile Golden Work Phone: [facility] Start: 10-27-2020 End: 10-27-2020 Subsequent hospital visit by physician Ino He Work Phone: [address] Comment on above: Malignant neoplasm o f endometrium (HCC) Start: 10-22-2020 End: 10-22-2020 Subsequent hospital visit by physician Ino He Work Phone: [facility] Start: 09-30-2020 End: 10-01-2020 Subsequent hospital visit by physician Cuauhtemoc Stubbs Work Phone: [facility] Comment on above: Post-operative state (Primary Dx); Type 2 diabetes mellitus with hyperosmolarity without coma, 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); 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) Start: 09-23-2020 End: 09-23-2020 Subsequent hospital visit by physician Cuauhtemoc Stubbs Work Phone: [facility] Comment on above: Arrived Start: 09-22-2020 End: 09-22-2020 Subsequent hospital visit by physician Haile Golden Work Phone: [facility] Start: 09-15-2020 End: 09-15-2020 Subsequent hospital visit by physician Haile Golden Work Phone: [facility] Start: 09-08-2020 End: 09-08-2020 Subsequent hospital visit by physician Haile Golden Work Phone: [facility] Start: 09-01-2020 End: 09-01-2020 Subsequent hospital visit by physician Haile Golden Work Phone: [facility] Start: 08-25-2020 End: 08-25-2020 Subsequent hospital visit by physician Haile Golden Work Phone: [facility] Start: 08-04-2020 End: 08-04-2020 Subsequent hospital visit by physician Haile Golden Work Phone: [facility] Start: 07-21-2020 End: 07-21-2020 Subsequent hospital visit by physician Haile Golden Work Phone: [facility] Start: 07-14-2020 End: 07-14-2020 Subsequent hospital visit by physician Haile Golden Work Phone: [facility] Start: 07-07-2020 End: 07-07-2020 Subsequent hospital visit by physician Haile Golden Work Phone: [facility] Start: 06-30-2020 End: 06-30-2020 Subsequent hospital visit by physician Haile Golden Work Phone: [facility] Start: 06-23-2020 End: 06-23-2020 Subsequent hospital visit by physician Haile Golden Work Phone: [facility] Start: 06-16-2020 End: 06-16-2020 Subsequent hospital visit by physician Haile Golden Work Phone: [facility] [place] [facility] Start: 06-09-2020 End: 06-09-2020 Subsequent hospital visit by physician Haile Golden Work Phone: [facility] [place] Start: 06-02-2020 End: 06-02-2020 Subsequent hospital visit by physician Haile Golden Work Phone: [facility] [place] [facility] Start: 05-31-2020 End: 05-31-2020 Subsequent hospital visit by physician Haile Golden Work Phone: [facility] [place] [facility] Start: 05-26-2020 End: 05-26-2020 Subsequent hospital visit by physician Haile Golden Work Phone: [facility] [place] Start: 05-19-2020 End: 05-19-2020 Subsequent hospital visit by physician Haile Golden Work Phone: [facility] Start: 05-12-2020 End: 05-12-2020 Subsequent hospital visit by physician Haile Golden [facility] Phone: [facility] Start: 05-05-2020 End: 05-05-2020 Subsequent hospital visit by physician Haile Golden Work Phone: [facility] [place] [facility] Start: 04-28-2020 End: 04-28-2020 Subsequent hospital visit by physician Haile Golden Work Phone: [facility] [place] [facility] Start: 04-21-2020 End: 04-21-2020 Subsequent hospital visit by physician Haile Golden Work Phone: [facility] [place] Start: 04-14-2020 End: 04-14-2020 Subsequent hospital visit by physician Haile Golden Work Phone: [facility] [place] Start: 04-07-2020 End: 04-07-2020 Subsequent hospital visit by physician Haile Golden Work Phone: [facility] [place] Start: 04-01-2020 End: 04-01-2020 Subsequent hospital visit by physician Clare Bui Work Phone: [facility] Start: 03-24-2020 End: 03-24-2020 Subsequent hospital visit by physician Haile Golden Work Phone: [facility] Start: 03-17-2020 End: 03-17-2020 Subsequent hospital visit by physician Haile Golden Work Phone: [facility] Start: 03-10-2020 End: 03-10-2020 Subsequent hospital visit by physician Haile Golden Work Phone: [facility] Start: 03-03-2020 End: 03-03-2020 Subsequent hospital visit by physician Haile Golden Work Phone: [facility] Start: 02-25-2020 End: 02-25-2020 Subsequent hospital visit by physician Haile Golden Work Phone: [facility] Start: 02-18-2020 End: 02-18-2020 Subsequent hospital visit by physician Haile Golden Work Phone: [facility] Start: 02-11-2020 End: 02-11-2020 Subsequent hospital visit by physician Haile Golden Work Phone: [facility] Start: 02-04-2020 End: 02-04-2020 Subsequent hospital visit by physician Haile Golden Work Phone: [facility] Start: 01-28-2020 End: 01-28-2020 Subsequent hospital visit by physician Haile Golden Work Phone: [facility] Start: 01-21-2020 End: 01-21-2020 Subsequent hospital visit by physician Haile Golden Work Phone: [facility] Start: 01-07-2020 End: 01-07-2020 Subsequent hospital visit by physician Haile Golden Work Phone: [facility] Start: 12-30-2019 End: 12-30-2019 Subsequent hospital visit by physician Haile Golden Work Phone: [facility] Start: 12-24-2019 End: 12-24-2019 Subsequent hospital visit by physician Haile Golden Work Phone: [facility] Start: 12-10-2019 End: 12-10-2019 Subsequent hospital visit by physician Haile Golden Work Phone: [facility] Start: 12-03-2019 End: 12-03-2019 Subsequent hospital visit by physician Haile Golden Work Phone: [facility] Start: 11-26-2019 End: 11-26-2019 Subsequent hospital visit by physician Haile Golden Work Phone: [facility] Start: 11-12-2019 End: 11-12-2019 Subsequent hospital visit by physician Haile Golden Work Phone: [facility] Start: 11-05-2019 End: 11-05-2019 Subsequent hospital visit by physician Haile Golden Work Phone: [facility] Start: 10-29-2019 End: 10-29-2019 Subsequent hospital visit by physician Haile Golden Work Phone: [facility] Start: 10-22-2019 End: 10-22-2019 Subsequent hospital visit by physician Haile Golden Work Phone: [facility] Start: 10-08-2019 End: 10-08-2019 Subsequent hospital visit by physician Haile Golden Work Phone: [facility] Start: 10-01-2019 End: 10-01-2019 Subsequent hospital visit by physician Haile Golden Work Phone: [facility] Start: 09-24-2019 End: 09-24-2019 Subsequent hospital visit by physician Haile oGlden Work Phone: [facility] Start: 09-19-2019 End: 09-19-2019 Subsequent hospital visit by physician Haile Golden Work Phone: [facility] [place] [facility] Start: 09-10-2019 End: 09-10-2019 Subsequent hospital visit by physician Haile Golden Work Phone: [facility] [place] [facility] Start: 09-09-2019 End: 09-09-2019 Subsequent hospital visit by physician Clare Bui Work Phone: [facility] [place] [facility] Start: 09-03-2019 End: 09-03-2019 Subsequent hospital visit by physician Haile Golden Work Phone: [facility] [place] [facility] Start: 08-27-2019 End: 08-27-2019 Subsequent hospital visit by physician Haile Golden Work Phone: [facility] [place] [facility] Start: 08-13-2019 End: 08-13-2019 Subsequent hospital visit by physician Haile Golden Work Phone: [facility] [place] [facility] Start: 08-06-2019 End: 08-06-2019 Subsequent hospital visit by physician Haile Golden Work Phone: [facility] [place] [facility] Start: 07-30-2019 End: 07-30-2019 Subsequent hospital visit by physician Haile Golden Work Phone: [facility] [place] [facility] Start: 07-21-2019 End: 07-21-2019 Subsequent hospital visit by physician Haile Golden Work Phone: [facility] [place] [facility] Start: 07-14-2019 End: 07-14-2019 Subsequent hospital visit by physician Haile Golden Work Phone: [facility] [place] [facility] Start: 06-25-2019 End: 06-25-2019 Subsequent hospital visit by physician Haile Golden Work Phone: [facility] [place] [facility] Start: 06-18-2019 End: 06-18-2019 Subsequent hospital visit by physician Haile Golden Work Phone: [facility] [place] [facility] Start: 06-04-2019 End: 06-04-2019 Subsequent hospital visit by physician Haile Golden Work Phone: [facility] Start: 05-28-2019 End: 05-28-2019 Subsequent hospital visit by physician Haile Golden Work Phone: [facility] Start: 05-16-2019 End: 05-16-2019 Subsequent hospital visit by physician Haile Golden Work Phone: [facility] Start: 05-09-2019 End: 05-09-2019 Subsequent hospital visit by physician Haile Golden Work Phone: [facility] Start: 05-02-2019 End: 05-02-2019 Subsequent hospital visit by physician Haile Golden Work Phone: [facility] Start: 04-25-2019 End: 04-25-2019 Subsequent hospital visit by physician Haile Golden Work Phone: [facility] Start: 04-11-2019 End: 04-11-2019 Subsequent hospital visit by physician Haile Golden Work Phone: [facility] Start: 04-04-2019 End: 04-04-2019 Subsequent hospital visit by physician Haile Golden Work Phone: [facility] Start: 04-03-2019 End: 04-03-2019 Subsequent hospital visit by physician Jorge Alberto Palumbo Work Phone: [facility] Start: 03-28-2019 End: 03-28-2019 Subsequent hospital visit by physician Haile Golden Work Phone: [facility] Start: 03-14-2019 End: 03-14-2019 Subsequent hospital visit by physician Haile Golden Work Phone: [facility] Start: 03-07-2019 End: 03-07-2019 Subsequent hospital visit by physician Haile Golden Work Phone: [facility] Start: 02-28-2019 End: 02-28-2019 Subsequent hospital visit by physician Haile Golden Work Phone: [facility] Procedures Date Procedure Procedure Detail Performing [...] Phone: Start: 05-12-2025 Assay of lactate Jennifer León DO Work Phone: Start: 05-11-2025 End: 05-11-2025 Comprehensive metabolic panel Jennifer León DO Work Phone: Start: 05-11-2025 Culture bacterial [...] lds trcg only w/o i&r Jeremiah Coffman CLINICAL DERMATOLOGIST Work Phone: Start: 11-02-2024 Glucose quantitative blood xcpt reagent strip Damon Vu MD Work Phone: Start: 11-02-2024 Us retroperitoneal r eal time w/image complete Wilner Kingston MD Work Phone: Start: 11-02-2024 Assay of ammonia Wilner Kingston MD Work Phone: Start: 11-02-2024 Basic metabolic pane l calcium total Jeremiah Coffman CLINICAL DERMATOLOGIST Work Phone: Start: 11-02-2024 Manual Differential panel - Blood Jeremiah Coffman CLINICAL DERMATOLOGIST Work Phone: Start: 11-02-2024 Thyrotropin [Units/v olume] in Serum or Plasma Damon Vu MD Work Phone: Start: 11-02-2024 Ecg routine ecg w/le ast 12 lds trcg only w/o i&r Jeremiah Coffman CLINICAL DERMATOLOGIST Work Phone: Start: 11-02-2024 Basic metabolic pane [...] 12 lds trcg only w/o i&r Oscar Valdes PABeckieC Work Phone: Start: 11-01-2024 POCT GLUCOSE METER [...] abdomen & pelvis w/contrast material Anjana Meadows CLINICAL PROGRAMMER - CRISIS COUNSELOR Work Phone: Start: 11-13-2023 End: 11-13-2023 Computerized ophthalmic imaging retina Msaon Johnston MD Work Phone: Start: 11-02-2023 Hemoglobin glycosylated a1c Lyric Cruz CLINICAL PROGRAMMER - CRISIS COUNSELOR Work Phone: Start: 10-26-2023 Visual field xm uni/ bi w/interp extended exam Moses Acevedo MD Work Phone: Start: 05-09-2023 Hemoglobin glycosylated a1c Bridget Alcantara MD Work Phone: Start: 04-10-2023 Computerized ophthal cheli imaging optic nerve Moses Acevedo MD Work Phone: Start: 01-19-2023 Hemoglobin glycosylated a1c Lyric Black Anthony CLINICAL PROGRAMMER - CRISIS COUNSELOR Work Phone: Start: 10-06-2022 Lipid 1996 panel - S akilah or Plasma Jerome Perdomo MD Work Phone: Start: 10-06-2022 Thyrotropin [Units/v olume] in Serum or Plasma Jerome Perdomo MD Work Phone: Start: 05-15-2022 Thyrotropin [Units/v olume] in Serum or Plasma Lyric Cruz CLINICAL PROGRAMMER - CRISIS COUNSELOR Work Phone: Start: 04-06-2022 Computerized ophthal cheli imaging optic nerve Moses Acevedo MD Work Phone: Start: 02-13-2022 Thyrotropin [Units/v olume] in Serum or Plasma Jerome Perdomo MD Work Phone: Start: 06-22-2021 Lipid 1996 panel - S akilah or Plasma Jerome Perdomo MD Work Phone: Start: 01-10-2021 CT GUIDANCE RADIOLOG Y THERAPY Ino He MD Work Phone: Start: 12-27-2020 Blood count complete automated Ino eH MD Work Phone: Start: 12-13-2020 Blood count [...] ecg w/le ast 12 lds w/i&r Jailene Separ Work Phone: Start: 09-23-2020 Basic metabolic pane [...] DTaP/Tdap/Td Vaccines (2 - Td or Tdap) [facility] Start: 06-28-2033 Urine microalbumin profile DTaP,Tdap,Td Vaccine (2 - Td or Tdap) [facility] Start: 06-28-2033 [facility] Start: 05-19-2026 Creatinine measurement [facility] Start: 05-19-2026 Potassium measurement [facility] Start: 05-11-2026 Hemoglobin A1c measurement [facility] Start: 11-05-2025 Creatinine measurement Creatinine Level [facility] Start: 11-05-2025 Diabetes: Estimated Glomerular Filtration Rate for Kidney Health Diabetes: Estimated Glomerular Filtration Rate for Kidney Health [facility] Start: 11-05-2025 Potassium measurement Potassium Level [facility] Start: 11-03-2025 Echocardiography Echocardiogram [facility] Start: 11-03-2025 [facility] Start: 11-02-2025 Hemoglobin A1c measurement Diabetes: Hemoglobin A1C [facility] Start: 11-02-2025 Thyroid stimulating hormone measurement [facility] Start: 07-22-2025 Glaucoma screening [facility] Start: 05-02-2025 Glaucoma screening Dilated Retinal Exam [facility] Start: 04-29-2025 Glaucoma screening Diabetes: Retinopathy Screening [facility] Start: 04-29-2025 Hemoglobin A1c measurement Diabetes: Hemoglobin A1C [facility] Start: 04-29-2025 Lipid panel [facility] Start: 04-29-2025 Thyroid stimulating hormone measurement TSH Level [facility] Start: 03-23-2025 Influenza vaccination Influenza Vaccine (#1) [facility] Start: 03-23-2025 [facility] Start: 03-19-2025 Medicare Annual Wellness (AWV) Medicare Annual Wellness (AWV) [facility] Start: 03-19-2025 [facility] Start: 02-23-2025 End: 02-23-2025 Patient encounter procedure 02/23/2025 3:00 PM EDT Office Visit [facility] [place] [address] [facility] [address] [phone] Seema Hernandez, CLINICAL PROGRAMMER - CRISIS COUNSELOR [address] [facility] [address] [place], [place] [address] [facility] Start: 02-17-2025 Hemoglobin A1c measurement Diabetes: Hemoglobin A1C [facility] Start: 02-17-2025 Lipid panel Lipid Panel [facility] Start: 02-17-2025 Thyroid stimulating hormone measurement TSH Level [facility] Start: 01-26-2025 End: 01-26-2025 Patient encounter procedure 01/26/2025 2:00 PM EDT Office Visit [facility] [address] [place] [phone] Seema Hernandez CLINICAL PROGRAMMER - CRISIS COUNSELOR [address] [place] [address] [facility] Start: 2025 End: 2025 Patient encounter procedure 2025 11:00 AM EDT Appointment [facility] [address] [place] [phone] Cuauhtemoc Stubbs MD [address] [facility] [address] [place] [address] [facility] Start: 12-23-2024 End: 12-23-2025 PET+CT Bone from skull base to mid-thigh W 18F-NaF IV PET/CT skull base to mid thigh Imaging Routine Multiple lung nodules Endometrial cancer (CMS/HCC) (HCC) Expected: 12/23/2024, Expires: 12/23/[address] [facility] Work Phone: Comment on above: Expected: 12/23/2024, Expires: Start: 12-22-2024 End: 12-22-2024 Patient encounter procedure [facility] Start: 12-12-2024 End: 12-12-2024 Patient encounter procedure 12/12/2024 3:30 PM EDT Office Visit [facility] [place] [address] [place] [phone] Carli Aldrich, CLINICAL PROGRAMMER - CRISIS COUNSELOR [address] [place], [place] [phone] [facility] [place] Start: 12-10-2024 End: 12-10-2025 CT Guidance for biopsy of Retroperitoneum CT guided biopsy abdomen or retroperitoneum Imaging Routine Endometrial cancer (CMS/HCC) (HCC) Multiple lung nodules Expected: 12/10/2024, Expires: 12/10/2025 [employer] Work Phone: Comment on above: Expected: 12/10/2024, Expires: Start: 12-08-2024 End: 12-08-2025 CT Guidance for biopsy of Lung CT guided percutaneous lung Imaging Routine Endometrial cancer (CMS/HCC) (HCC) Multiple lung nodules Expected: 12/08/2024, Expires: 12/08/2025 [employer] Work Phone: Comment on above: Expected: 12/08/2024, Expires: Start: 12-03-2024 End: 12-03-2024 Patient encounter procedure 12/03/2024 9:15 AM EDT Appointment [facility] [place] [address] [place] [phone] Jerome Perdomo MD [address] [place] [phone] [facility] [place] Start: 12-02-2024 End: 12-02-2024 Patient encounter procedure 12/02/2024 10:00 AM EDT Office Visit [facility] [place] [address] [place] [phone] Carli Aldrich, AMAURY - CRISIS COUNSELOR [address] [place] [address] [facility] [place] Start: 11-27-2024 End: 05-06-2025 Camera fundoscopy FUNDUS PHOTOS OU (BOTH EYES) [facility] Imaging Routine 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 macular edema, with long-term current use of insulin (HCC) Expected: 11/27/2024, Expires: 05/06/2025 [facility] Comment on above: Expected: 11/27/2024, Expires: Start: 11-27-2024 End: 05-06-2025 OCT MACULA CIRRUS OU (BOTH EYES) OCT MACULA CIRRUS OU (BOTH EYES) [facility] Imaging Routine 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 macular edema, with long-term current use of insulin (HCC) Expected: 11/27/2024, Expires: 05/06/2025 [facility] Work Phone: Comment on above: Expected: 11/27/2024, Expires: Start: 11-12-2024 Glaucoma screening Dilated Retinal Exam [facility] Start: 11-11-2024 Subsequent hospital visit by physician 11/11/2024 8:30 AM EDT Hospital Encounter [facility] [address] [place] [address] Christy Leach MD [address] [facility] [address] [place] [phone] [facility] 1 [facility] Start: 11-11-2024 End: 11-11-2024 Patient encounter procedure [facility] 1 [facility] Start: 11-01-2024 Hemoglobin A1c measurement Diabetes: Hemoglobin A1C [facility] Start: 10-31-2024 End: 10-31-2024 Patient encounter procedure 10/31/2024 3:00 PM EDT Office Visit [facility] [place] [facility] [place] [address] Moses Acevedo MD [address] [place] [address] Return in about 6 months (around 10/31/2024) for IOP check and HVF 24-2 OU . [facility] [place] Comment on above: Return in about 6 months (around 11/01/19 25) for IOP check and HVF 24-2 OU . Start: 10-27-2024 End: 10-27-2026 US Heart Transthoracic Transthoracic echocardiogram (TTE) complete with contrast, bubble, strain, and 3D PRN CV Echocardiography Routine Heart failure, unspecified (HCC) Nonrheumatic aortic (valve) stenosis Other general symptoms and signs Expected: 10/27/2024 (Approximate), Expires: 10/27/2026 [facility] Work Phone: Comment on above: Expected: 10/27/2024 (Approximate), Expi res: 10/27/2026 Start: 09-17-2024 Diabetes: Urine Albumin-Creatinine Ratio for Kidney Health Diabetes: Urine Albumin-Creatinine Ratio for Kidney Health [facility] Start: 09-12-2024 End: 09-12-2024 Patient encounter procedure [facility] Start: 09-01-2024 End: 09-01-2024 Patient encounter procedure 09/01/2024 3:00 PM EST Office Visit [facility] [place] [address] [place] [address] Azra Buck, AMAURY - CRISIS COUNSELOR [address] [place] [address] [facility] [place] Start: 08-19-2024 End: 08-19-2024 Patient encounter procedure [facility] Start: 06-24-2024 End: 06-24-2024 Patient encounter procedure 06/24/2024 10:30 AM EST Office Visit [facility] [address] [place] [address] Mason Johnston MD [address] [place], [place] [phone] Return in about 6 months (around 05/14/2024). pt requested later appt [facility] Comment on above: Return in about 6 months (around 024). pt requested later appt Start: 05-21-2024 End: 05-21-2024 Patient encounter procedure [facility] [place] Start: 05-20-2024 Hemoglobin A1c measurement HbA1C [facility] Start: 05-15-2024 Glaucoma screening Dilated Retinal Exam [facility] Start: 05-13-2024 End: 05-13-2024 Patient encounter procedure 05/13/2024 2:30 PM EDT Office Visit [facility] [address] [place] [address] Mason Johnston MD [address] [place], [place] [phone] Return in about 6 months (around 05/14/2024). [facility] Comment on above: Return in about 6 months (around 024). Start: 05-09-2024 Hemoglobin A1c measurement Diabetes: Hemoglobin A1C [facility] Start: 05-07-2024 End: 05-07-2024 Patient encounter procedure 05/07/2024 1:00 PM EDT Appointment [facility] [place] [phone] Jerome Perdomo MD [address] [place] [phone] [facility] [place] Start: 05-02-2024 End: 05-02-2024 Patient encounter procedure 05/02/2024 3:00 PM EDT Office Visit [facility] [address] [place], [place] [address] Moses Acevedo MD [address] [place] [address] Return in about 6 months (around 04/26/2024) for Complete eye exam with OCT nerve OU . [facility] Comment on above: Return in about 6 months (around 04/26/20 24) for Complete eye exam with OCT nerve OU . Start: 04-23-2024 End: 04-23-2024 Patient encounter procedure [facility] Start: 04-10-2024 Hepatitis C antibody, confirmatory test Dilated Retinal Exam [facility] Start: 04-09-2024 End: 04-09-2024 Patient encounter procedure 04/09/2024 1:00 PM EDT Appointment [facility] [address] [place] [address] Jerome Perdomo MD [address] [place] [address] [facility] Start: 03-26-2024 End: 03-26-2024 Patient encounter procedure [facility] Start: 03-23-2024 COVID-19 Vaccine ( season) COVID-19 Vaccine ( season) [facility] Start: 03-23-2024 COVID-19 Vaccine ( season) COVID-19 Vaccine ( season) [facility] Start: 03-23-2024 Covid-19 Vaccine () Covid-19 Vaccine () [facility] Start: 03-23-2024 Influenza vaccination [facility] Start: 03-19-2024 End: 03-19-2024 Patient encounter procedure 03/19/2024 3:30 PM EDT Office Visit [facility] [address] [facility] [address] [place] [phone] Lyric Cruz, CLINICAL PROGRAMMER - CRISIS COUNSELOR [address] [place], [place] [phone] [facility] Start: 03-14-2024 End: 03-14-2024 Patient encounter procedure 03/14/2024 3:00 PM EDT Appointment [facility] [address] [facility] [address] [place] [phone] Christy Leach MD [address] [facility] [address] [place] [phone] [facility] Start: 03-12-2024 End: 03-12-2024 Patient encounter procedure 03/12/2024 1:00 PM EDT Appointment [facility] [address] [place] [address] Jerome Perdomo MD [address] [place] [address] [facility] Start: 03-04-2024 End: 03-04-2024 Patient encounter procedure 03/04/2024 3:30 PM EDT Office Visit [facility] [address] [facility] [address] [place] [phone] Anjana Meadows [facility] [address] [facility] [address] [place] [address] [facility] Start: 02-27-2024 End: 02-27-2024 Patient encounter procedure 02/27/2024 10:45 AM EDT Appointment [facility] [address] [place] [address] Jerome Perdomo MD [address] [place] [address] [facility] Start: 02-14-2024 Glaucoma screening Diabetes: Retinopathy Screening [facility] Start: 02-13-2024 End: 02-13-2024 Patient encounter procedure 02/13/2024 1:00 PM EDT Appointment [facility] [address] [place] [address] Jerome Perdomo MD [address] [place] [address] [facility] Start: 02-01-2024 Hemoglobin A1c measurement HbA1C [facility] Start: 01-30-2024 End: 01-30-2024 Patient encounter procedure 01/30/2024 11:00 AM EDT Appointment [facility] [address] [place] [address] Jerome Perdomo MD [address] [place] [address] [facility] Start: 01-20-2024 Hemoglobin A1c measurement Diabetes: Hemoglobin A1C [facility] Start: 01-16-2024 End: 01-16-2024 Patient encounter procedure 01/16/2024 3:15 PM EDT Appointment [facility] [address] [place] [address] Jerome Perdomo MD [address] [place] [address] [facility] Start: 2024 End: 2024 Patient encounter procedure 2024 11:00 AM EDT Appointment [facility] [address] [place] [address] Jerome Perdomo MD [address] [place] [address] [facility] Start: 12-20-2023 End: 12-20-2023 Patient encounter procedure 12/20/2023 3:15 PM EDT Appointment [facility] [address] [place] [address] Jerome Perdomo MD [address] [place] [address] [facility] Start: 12-05-2023 End: 12-05-2023 Patient encounter procedure 12/05/2023 11:00 AM EDT Appointment [facility] [address] [place] [address] Jerome Perdomo MD [address] [place] [address] [facility] Start: 12-04-2023 End: 12-04-2023 Patient encounter procedure 12/04/2023 10:30 AM EDT Appointment [facility] 1 [facility] 1 [place] [phone] [address] [place] [address] Start: 11-21-2023 End: 11-21-2023 Patient encounter procedure 11/21/2023 3:15 PM EDT Appointment [facility] [address] [place] [address] Jerome Perdomo MD [address] [place] [address] [facility] Start: 11-07-2023 End: 11-07-2023 Patient encounter procedure 11/07/2023 11:15 AM EDT Appointment [facility] [address] [place] [address] Jerome Perdomo MD [address] [place] [address] [facility] Start: 11-02-2023 End: 11-02-2023 Patient encounter procedure 11/02/2023 3:30 PM EDT Office Visit [facility] 1 [facility] [address] [place] [phone] Lyric Cruz, CLINICAL PROGRAMMER - CRISIS COUNSELOR [address] [place], [place] [phone] [facility] Start: 11-01-2023 End: 11-01-2023 Patient encounter procedure 11/01/2023 3:30 PM EDT Office Visit [facility] [address] [facility] [address] [place] [phone] Jaqueline Grayson, CLINICAL PROGRAMMER - CRISIS COUNSELOR [address] [facility] [address] [place] [address] [facility] Start: 11-01-2023 End: 10-31-2024 Creatinine [Mass/volume] in Serum or Plasma Creatinine, Serum Lab Routine Endometrial cancer (CMS/HCC) (HCC) Expected: 11/01/2023 (Approximate), Expires: 10/31/2024 [facility] Comment on above: Expected: 11/01/2023 (Approximate), Expi res: 10/31/2024 Start: 11-01-2023 End: 10-31-2024 CT Abdomen and Pelvis W contrast IV CT abdomen pelvis w contrast Imaging Routine Endometrial cancer (CMS/HCC) (HCC) Expected: 11/01/2023, Expires: 10/31/2024 [facility] Work Phone: Comment on above: Expected: 11/01/2023, Expires: Start: 10-24-2023 End: 10-24-2023 Patient encounter procedure [facility] Start: 10-10-2023 End: 10-10-2023 Patient encounter procedure [facility] Start: 10-07-2023 Diabetes: Estimated Glomerular Filtration Rate for Kidney Health Diabetes: Estimated Glomerular Filtration Rate for Kidney Health [facility] Start: 10-07-2023 Diabetes: Urine Albumin-Creatinine Ratio for Kidney Health Diabetes: Urine Albumin-Creatinine Ratio for Kidney Health [facility] Start: 10-07-2023 Hepatitis B screening Urine Albumin:Creatinine Ratio [facility] Start: 10-07-2023 Hepatitis B surface antibody level LDL Cholesterol [facility] Start: 10-07-2023 Lipid panel Lipid Panel [facility] Start: 10-07-2023 Thyroid stimulating hormone measurement TSH Level [facility] Start: 10-07-2023 Urine screening for protein Diabetes: Urine Protein Screening [facility] Start: 09-26-2023 Glaucoma screening Diabetes: Retinopathy Screening [facility] Start: 09-26-2023 End: 09-26-2023 Patient encounter procedure 09/26/2023 11:00 AM EST Appointment [facility] [address] [place] [address] Jerome Perdomo MD [address] [place] [address] [facility] Start: 09-13-2023 End: 09-13-2023 Patient encounter procedure 09/13/2023 3:15 PM EST Appointment [facility] [address] [place] [address] Jerome Perdomo MD [address] [place] [address] [facility] Start: 09-12-2023 End: 09-12-2023 Patient encounter procedure 09/12/2023 3:30 PM EST Office Visit [facility] [address] [phone] Lyric Cruz, CLINICAL PROGRAMMER - CRISIS COUNSELOR [address] [place], [place] [phone] [facility] Start: 09-11-2023 End: 09-11-2023 Patient encounter procedure 09/11/2023 2:30 PM EST Appointment [facility] [address] [place] [address] Ino He MD [address] [id number] [facility] Start: 08-29-2023 End: 08-29-2023 Patient encounter procedure 08/29/2023 11:00 AM EST Appointment [facility] [address] [place] [address] Jerome Perdomo MD [address], [address] [place] [address] [facility] Start: 08-15-2023 End: 08-15-2023 Patient encounter procedure 08/15/2023 3:15 PM EST Appointment [facility] [address] [place] [phone] Jerome Perdomo MD [address], [place], [address] [place] [address] [facility] Start: 08-09-2023 End: 05-09-2024 Comprehensive metabolic 1998 panel - Serum or Plasma Comprehensive metabolic panel Lab Routine Type 2 diabetes mellitus with hyperglycemia, with long-term current use of insulin (CMS/HCC) (HCC) Expected: 08/09/2023 (Approximate), Expires: 05/09/2024 [facility] Work Phone: Comment on above: Expected: 08/09/2023 (Approximate), Expi res: 05/09/2024 Start: 08-09-2023 End: 05-09-2024 Hemoglobin A1c measurement [facility] Comment on above: Expected: 08/09/2023 (Approximate), Expi res: 05/09/2024 Start: 08-09-2023 End: 05-09-2024 Lipid 1996 panel - Serum or Plasma Lipid panel Lab Routine Mixed hyperlipidemia Expected: 08/09/2023 (Approximate), Expires: 05/09/2024 [facility] Comment on above: Expected: 08/09/2023 (Approximate), Expi res: 05/09/2024 Start: 08-09-2023 End: 05-09-2024 Thyrotropin [Units/volume] in Serum or Plasma TSH Lab Routine 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 Expected: 08/09/2023 (Approximate), Expires: 05/09/2024 [facility] Comment on above: Expected: 08/09/2023 (Approximate), Expi res: 05/09/2024 Start: 08-09-2023 End: 05-09-2024 Thyroxine (T4) free [Mass/volume] in Serum or Plasma T4, free Lab Routine 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 Expected: 08/09/2023 (Approximate), Expires: 05/09/2024 [facility] Comment on above: Expected: 08/09/2023 (Approximate), Expi res: 05/09/2024 Start: 08-01-2023 End: 08-01-2023 Patient encounter procedure 08/01/2023 11:00 AM EST Appointment [facility] [address] [place] [address] Jerome Perdomo MD [address] [place] [address] [facility] Start: 07-23-2023 Advance Directive Discussion Advance Directive Discussion [facility] Start: 07-23-2023 Behavioral Health Screening Behavioral Health Screening [facility] Start: 07-18-2023 End: 07-18-2023 Patient encounter procedure 07/18/2023 11:00 AM EST Appointment [facility] [address] [place] [address] Jerome Perdomo MD [address] [place] [address], [address] [place] [address] [facility] Start: 07-04-2023 End: 07-04-2023 Patient encounter procedure 07/04/2023 3:15 PM EST Appointment [facility] [address] [place] [address] Jerome Perdomo MD [address] [place] [address], [address] [place] [address] [facility] Start: 06-20-2023 End: 06-20-2023 Patient encounter procedure 06/20/2023 11:00 AM EST Appointment [facility] [address] [place] [address] Jerome Perdomo MD [address] [place] [address], [address] [place] [address] [facility] Start: 06-06-2023 End: 06-06-2023 Patient encounter procedure 06/06/2023 3:15 PM EST Appointment [facility] [address] [place] [address] Jerome Perdomo MD [address] [place] [address] [facility] Start: 05-23-2023 End: 05-23-2023 Patient encounter procedure 05/23/2023 11:00 AM EDT Appointment [facility] [address] [place] [address] Jerome Perdomo MD [address] [place] [address] [facility] Start: 05-15-2023 Thyroid stimulating hormone measurement TSH Level [facility] Start: 05-11-2023 End: 05-11-2023 Clinical Support 05/11/2023 11:00 AM EDT Clinical Support [facility] [address] [place] [id number] [facility] Start: 05-09-2023 End: 05-09-2023 Patient encounter procedure [facility] Start: 05-08-2023 End: 05-08-2023 Patient encounter procedure 05/08/2023 11:00 AM EDT Appointment [facility] [address] [place] [address] Jerome Perdomo MD [address] [place] [address] [facility] Start: 04-30-2023 End: 04-30-2023 Patient encounter procedure [facility] Start: 04-25-2023 End: 04-25-2023 Patient encounter procedure 04/25/2023 11:00 AM EDT Appointment [facility] [address] [place] [address] Jerome Perdomo MD [address] [place] [address], [address] [place] [address] [facility] Start: 04-21-2023 Hemoglobin A1c/Hemoglobin.total in Blood HbA1C [facility] Start: 04-17-2023 End: 04-17-2023 Patient encounter procedure 04/17/2023 11:00 AM EDT Appointment [facility] [address] [place] [address] Jerome Perdomo MD [address] [place] [address], [address] [place] [address] [facility] Start: 04-11-2023 End: 04-11-2023 Patient encounter procedure 04/11/2023 11:00 AM EDT Appointment [facility] [address] [place] [address] Jerome Perdomo MD [address] [place] [address], [address] [place] [address] [facility] Start: 04-06-2023 Diabetic retinal exam Diabetic retinal exam [facility] Start: 04-06-2023 Hepatitis C antibody, confirmatory test DILATED RETINAL EXAM [facility] Start: 03-28-2023 End: 03-28-2023 Patient encounter procedure 03/28/2023 11:00 AM EDT Appointment [facility] [address] [place] [address] Jerome Perdomo MD [address] [place] [address], [address] [place] [address] [facility] Start: 03-23-2023 COVID-19 Vaccine ( season) COVID-19 Vaccine () [facility] Start: 03-23-2023 Influenza vaccination Influenza Vaccine (#1) [facility] Start: 03-23-2023 End: 03-23-2023 Clinical Support 03/23/2023 10:00 AM EDT Clinical Support [facility] [address] [place] [phone] [facility] Start: 03-15-2023 Medicare Annual Wellness (AWV) Medicare Annual Wellness (AWV) [facility] Start: 03-14-2023 End: 03-14-2023 Patient encounter procedure 03/14/2023 11:00 AM EDT Appointment [facility] [address] [place] [address] Jerome Perdomo MD [address] [place] [address] [facility] Start: 03-02-2023 End: 03-02-2023 Patient encounter procedure 03/02/2023 2:00 PM EDT Appointment [facility] [address] [place] [address] Ino He MD [address] [facility] [address] [id number] [facility] Start: 02-28-2023 End: 02-28-2023 Patient encounter procedure 02/28/2023 11:00 AM EDT Appointment [facility] [address] [place] [address] Jerome Perdomo MD [address] [place] [address] [facility] Start: 02-17-2023 Urine screening for protein Diabetes: Urine Protein Screening [facility] Start: 02-14-2023 End: 02-14-2023 Patient encounter procedure 02/14/2023 11:00 AM EDT Appointment [facility] [address] [place] [address] Jerome Perdomo MD [address] [place], [place] [id number] [facility] Start: 02-13-2023 Diabetic retinal exam Diabetic retinal exam [facility] Start: 02-13-2023 Glaucoma screening Diabetes: Retinopathy Screening [facility] Start: 02-13-2023 Lipid panel Lipids [facility] Start: 02-13-2023 Thyroid stimulating hormone measurement TSH Level [facility] Start: 01-31-2023 End: 01-31-2023 Patient encounter procedure 01/31/2023 11:00 AM EDT Appointment [facility] [address] [place] [address] Jerome Perdomo MD [address] [place], [place] [id number] [facility] Start: 01-19-2023 End: 01-19-2023 Patient encounter procedure [facility] Start: 01-17-2023 End: 01-17-2023 Patient encounter procedure [facility] Start: 01-06-2023 Hemoglobin A1c measurement Diabetes: Hemoglobin A1C [facility] Start: 01-03-2023 End: 01-03-2023 Patient encounter procedure 01/03/2023 Appointment Wound Care [facility] Start: 12-20-2022 End: 12-20-2022 Patient encounter procedure 12/20/2022 Appointment Wound Care Jerome Perdomo MD [address] [place] [address] [facility] Start: 12-06-2022 End: 12-06-2022 Patient encounter procedure 12/06/2022 Appointment Wound Care [facility] Start: 11-22-2022 End: 11-22-2022 Patient encounter procedure 11/22/2022 Appointment Wound Care Jerome Perdomo MD [address] [place], [place] [id number] [facility] Start: 11-08-2022 End: 11-08-2022 Patient encounter procedure 11/08/2022 Appointment Wound Care [facility] Start: 11-03-2022 End: 11-03-2022 Patient encounter procedure 11/03/2022 Office Visit Gynecologic Oncology Jaqueline Grayson, CLINICAL PROGRAMMER - CRISIS COUNSELOR [address] [address] [facility] Start: 10-25-2022 End: 10-25-2022 Patient encounter procedure 10/25/2022 Appointment Wound Care Jerome Perdomo MD [address] [place], [place] [id number] [facility] Start: 10-11-2022 End: 10-11-2022 Patient encounter procedure 10/11/2022 Appointment Wound Care [facility] Start: 10-06-2022 End: 10-06-2022 Patient encounter procedure 10/06/2022 Office Visit Endocrinology Lyric Cruz, CLINICAL PROGRAMMER - CRISIS COUNSELOR [address] [place] [address] Endocrinology [facility] [facility] Start: 10-05-2022 Hemoglobin A1c measurement Diabetes: Hemoglobin A1C [facility] Start: 09-27-2022 End: 09-27-2022 Patient encounter procedure 09/27/2022 Appointment Wound Care Jerome Perdomo MD [address] [place] [address] [facility] Start: 09-15-2022 End: 09-15-2022 Patient encounter procedure 09/15/2022 Appointment Radiation Oncology Ino He MD [address] [facility] [address] [place] [address] [facility] Start: 09-13-2022 Pneumococcal 65+ years Vaccine (2 - PCV) Pneumococcal 65+ years Vaccine (2 - PCV) [facility] Start: 09-13-2022 End: 09-13-2022 Patient encounter procedure [facility] Start: 08-30-2022 End: 08-30-2022 Patient encounter procedure 08/30/2022 Appointment Wound Care Jerome Perdomo MD [address] [place], [place] [phone] [facility] Start: 08-17-2022 COVID-19 Vaccine (5 - Pfizer series) COVID-19 Vaccine (5 - Pfizer series) [facility] Start: 08-16-2022 End: 08-16-2022 Patient encounter procedure 08/16/2022 Appointment Wound Care [facility] Start: 08-05-2022 Hepatitis C antibody, confirmatory test DILATED RETINAL EXAM [facility] Start: 07-23-2022 Advance Directive Discussion Advance Directive Discussion [facility] Start: 07-23-2022 Depression Assessment Depression Assessment [facility] Start: 07-07-2022 End: 07-07-2022 Patient encounter procedure 07/07/2022 Office Visit Endocrinology Lyric Cruz, CLINICAL PROGRAMMER - CRISIS COUNSELOR [address] [place] [address] [facility]inology [facility] Start: 06-22-2022 Lipid panel Lipid Panel [facility] Start: 06-13-2022 Lipid panel [facility] Start: 06-03-2022 Hemoglobin A1c measurement A1C test (Diabetic or Prediabetic) [facility] Start: 05-05-2022 End: 05-05-2022 Patient encounter procedure [facility] [place] 7TH GRADE TEACHER Oncology Start: 04-12-2022 Diabetic retinal exam Diabetic retinal exam [facility] Start: 04-06-2022 Creatinine measurement [facility] Start: 04-06-2022 Diabetic microalbuminuria test Diabetic microalbuminuria test [facility] Start: 04-06-2022 Hemoglobin A1c measurement A1C test (Diabetic or Prediabetic) [facility] Start: 04-06-2022 Hepatitis B screening URINE ALBUMIN:CREATININE RATIO [facility] Start: 04-06-2022 Lipid panel Lipid screen [...] procedure 03/03/2022 Office Visit Endocrinology Claudette Baker CLINICAL PROGRAMMER - CRISIS COUNSELOR [address] [place] [address] Endocrinology [place] [facility] Start: 02-20-2022 Influenza vaccination Flu vaccine (#1) [facility] Start: 01-08-2022 COLOGUARD (FIT-DNA) COLOGUARD (FIT-DNA) [facility] Start: 01-08-2022 COLORECTAL CANCER SCREENING COLORECTAL CANCER SCREENING [facility] Start: 01-08-2022 Screening for malignant neoplasm of colon [facility] Start: 11-11-2021 End: 11-11-2021 Patient encounter procedure 11/11/2021 Office Visit Endocrinology Lester Hanks DO [address] [place] [address] [phone] [facility]ology [place] [facility] Start: 11-04-2021 End: 11-04-2021 Patient encounter procedure 11/04/2021 Office Visit Gynecologic Oncology Anjana Meadows APRN - CRISIS COUNSELOR [address] [facility] [place] [address] [facility] [place] 7[employer] GR[employer] TEACHER Oncology Start: 10-21-2021 End: 10-21-2021 Patient encounter procedure [facility] [place] 7[employer] TEACHER Oncology Start: 10-14-2021 COVID-19 Vaccine (4 - Booster for Pfizer series) COVID-19 Vaccine (4 - Booster for Pfizer series) [facility] Start: 10-01-2021 Thyroid stimulating hormone measurement TSH testing [facility] Work Phone: Start: 10-01-2021 TSH Qn TSH testing [facility] Work Phone: Start: 09-23-2021 Creatinine measurement Creatinine monitoring [facility] Work Phone: Start: 09-23-2021 Potassium monitoring Potassium monitoring [facility] Work Phone: Start: 09-16-2021 COVID-19 VACCINE (4 - Booster for Pfizer series) COVID-19 VACCINE (4 - Booster for Pfizer series) [facility] Start: 08-16-2021 COVID-19 Vaccine (4 - Booster for Pfizer series) COVID-19 Vaccine (4 - Booster for Pfizer series) [facility] Start: 08-12-2021 End: 08-12-2021 Patient encounter procedure 08/12/2021 Office Visit Endocrinology Lyric Cruz, CLINICAL PROGRAMMER - CRISIS COUNSELOR [address] [place] [address] [phone] Endocrinology [place] [facility] Start: 08-08-2021 COVID-19 Vaccine (4 - Booster for Pfizer series) COVID-19 Vaccine (4 - Booster for Pfizer series) [facility] Start: 07-23-2021 ADVANCE DIRECTIVE DISCUSSION ADVANCE DIRECTIVE DISCUSSION [facility] Start: 07-06-2021 Hemoglobin A1c/Hemoglobin.total in Blood HBA1C [facility] Start: 04-21-2021 End: 04-21-2021 Office Visit [facility] [place] 7[employer] TEACHER Oncology Start: 04-06-2021 End: 04-06-2021 Patient encounter procedure 04/06/2021 Office Visit Endocrinology Lyric Cruz, CLINICAL PROGRAMMER - CRISIS COUNSELOR [address] [place] [address] [phone] Endocrinology [place] [facility] Start: 03-23-2021 Influenza vaccination Flu vaccine (#1) [facility] Start: 03-04-2021 Creatinine measurement Creatinine monitoring [facility] [place] Start: 03-04-2021 Lipid panel Lipid screen [facility], [place] Start: 03-04-2021 Potassium monitoring Potassium monitoring [facility] [place] Start: 12-09-2020 COVID-19 Vaccine (3 - Pfizer risk 3-dose series) COVID-19 Vaccine (3 - Pfizer risk 3-dose series) [facility] Work Phone: Start: 12-09-2020 COVID-19 Vaccine (3 - Pfizer risk 4-dose series) COVID-19 Vaccine (3 - Pfizer risk 4-dose series) [facility] Start: 10-27-2020 End: 10-27-2020 Appointment 10/27/2020 Appointment Radiology Ino He MD [address] [facility] [address] [place], [place] [phone] [facility] Start: 10-18-2020 End: 10-18-2020 Office Visit 10/18/2020 Office Visit Gynecologic Oncology Cuauhtemoc Stubbs MD [address] [place] [address] [phone] [facility] [place] 7[employer] GRADE TEACHER Oncology Start: 09-30-2020 End: 09-30-2020 Appointment 09/30/2020 Appointment General Surgery Cuauhtemoc Stubbs MD [address] [place] [address] [phone] [facility] General Surgery Start: 09-23-2020 End: 09-23-2020 Appointment 09/23/2020 Appointment Pre-Admission Testing Cuauhtemoc Stubbs MD [address] [place] [address] [phone] [facility]-Admit [facility] Start: 09-17-2020 Annual Wellness Visit (AWV) Annual Wellness Visit (AWV) [facility] Start: 09-17-2020 End: 09-17-2020 Office Visit 09/17/2020 Office Visit Gynecologic Oncology Cuauhtemoc Stubbs MD [address], [address] [place] [address] [phone] Endometrial cancer (HCC) (Primary Dx) [facility] 7TH GRADE TEACHER Oncology Comment on above: Endometrial cancer (HCC) (Primary Dx) Start: 09-03-2020 End: 09-03-2020 Office Visit 09/03/2020 Office Visit Weight Management Clare Bui MD [address] [place] [address] [phone] [facility] Start: 07-31-2020 Creatinine measurement Creatinine monitoring [place], [place] Start: 07-31-2020 Creatinine monitoring Creatinine monitoring [facility] Work Phone: Start: 07-31-2020 Lipid panel Lipid screen [place], [place] Start: 07-31-2020 Lipid screen Lipid screen [facility] Work Phone: Start: 07-31-2020 Potassium monitoring Potassium monitoring [facility] Work Phone: Start: 07-30-2020 End: 07-30-2020 Office Visit [facility] Start: 06-24-2020 HbA1c (Bld) [Mass fraction] A1C test (Diabetic or Prediabetic) [place], [place] Start: 06-24-2020 Hemoglobin A1c measurement A1C test (Diabetic or Prediabetic) [facility] Work Phone: Start: 06-24-2020 Lipid screen Lipid screen [facility] Work Phone: Start: 05-06-2020 End: 05-06-2020 Office Visit 05/06/2020 Office Visit Bariatrics Clare Bui MD [address] [place] [address] [phone] [facility] Start: 04-01-2020 End: 04-01-2020 Office Visit 04/01/2020 Office Visit Bariatrics Clare Bui MD [address] [place] [address] [phone] [facility] Start: 03-27-2020 Creatinine monitoring Creatinine monitoring [place], [place] Start: 03-27-2020 Lipid screen Lipid screen [facility] [place] Start: 03-27-2020 Potassium monitoring Potassium monitoring [facility] [place] Start: 03-23-2020 Influenza vaccination [facility] [place] Start: 03-08-2020 End: 03-08-2020 Office Visit 03/08/2020 Office Visit Bariatrics Clare Bui MD [address] [facility] [place] [address] [phone] [facility] Start: 01-03-2020 BONE DENSITY BONE DENSITY [facility] Start: 01-03-2020 Bone Density Screening Bone Density Screening [facility] Start: 01-03-2020 Pneumococcal 65+ years Vaccine (1 of 1 - PPSV23) Pneumococcal 65+ years Vaccine (1 of 1 - PPSV23) [facility] Start: 01-03-2020 Pneumococcal 65+ years Vaccine (2 of 2 - PPSV23) Pneumococcal 65+ years Vaccine (2 of 2 - PPSV23) [facility] Work Phone: Start: 01-03-2020 PNEUMOVAX AGE 65 AND OVER WITH 5YR LOOKBACK (#1) PNEUMOVAX AGE 65 AND OVER WITH 5YR LOOKBACK (#1) [facility] Start: 01-03-2020 Screening for osteoporosis Bone Density Screening [facility] Start: 09-23-2019 A1C test (Diabetic or Prediabetic) A1C test (Diabetic or Prediabetic) [facility] Work Phone: Start: 09-23-2019 HbA1c (Bld) [Mass fraction] A1C test (Diabetic or Prediabetic) [facility] Start: 08-27-2019 Creatinine monitoring Creatinine monitoring [facility] [place] Start: 08-27-2019 Lipid screen [facility] Start: 08-27-2019 Potassium monitoring [facility] Start: 04-03-2019 End: 04-03-2019 Office Visit 04/03/2019 Office Visit Bariatrics Jorge Alberto Palumbo MD [address] [facility], [address] [place] [address] [phone] [facility] Start: 03-23-2019 Influenza vaccination Flu vaccine (#1) [place] Start: 03-12-2019 A1C test (Diabetic or Prediabetic) A1C test (Diabetic or Prediabetic) [facility] [place] Start: 03-12-2019 TSH Qn TSH testing [facility] [place] Start: 03-12-2019 TSH testing TSH testing [place], [place] Start: 02-22-2019 [object Object] Diabetic foot exam [place] Start: 02-22-2019 Diabetic foot examination Diabetic foot exam [facility] Start: 06-12-2018 A1C test (Diabetic or Prediabetic) A1C test (Diabetic or Prediabetic) [place] Start: 05-21-2018 Diabetic retinal exam Diabetic retinal exam [facility] Start: 06-28-2015 Shingles vaccine (1 of 2) Shingles vaccine (1 of 2) [facility] Start: 06-28-2015 Shingles Vaccine (2 of 3) Shingles Vaccine (2 of 3) [facility] Start: 06-28-2015 SHINGRIX VACCINE (2 of 3) SHINGRIX VACCINE (2 of 3) [facility] Start: 06-28-2015 Zoster Vaccines (2 of 3) Zoster Vaccines (2 of 3) [facility] Start: 06-28-2015 [facility] Start: 2015 Hepatitis B Vaccine (1 of 3 - Risk 3-dose series) Hepatitis B Vaccine (1 of 3 - Risk 3-dose series) [facility] Start: 2015 Hepatitis B Vaccines (1 of 3 - Risk 3-dose series) Hepatitis B Vaccines (1 of 3 - Risk 3-dose series) [facility] Start: 2015 RSV Immunization aged 60 or older (1 - 1-dose 60+ series) RSV Immunization aged 60 or older (1 - 1-dose 60+ series) [facility] Start: 2015 RSV Immunization for Adults (1 - Risk 60-74 years 1-dose series) RSV Immunization for Adults (1 - Risk 60-74 years 1-dose series) [facility] Start: 2015 [facility] Start: 03-28-2010 Screening for malignant neoplasm of colon [facility] Start: 2010 Screening for osteoporosis DEXA (modify frequency per FRAX score) [facility] Start: 03-28-2008 Screening for malignant neoplasm of colon FIT/FOBT: Average risk [facility] Start: 2005 Breast cancer screen Breast cancer screen [place], [place] Start: 2005 Colon cancer screen colonoscopy Colon cancer screen colonoscopy [place] Start: 2005 Screening for malignant neoplasm of breast Breast cancer screen [facility] Start: 2005 Screening for malignant neoplasm of colon Colon cancer screen colonoscopy [place], [place] Start: 2005 Shingles Vaccine (1 of 2) Shingles Vaccine (1 of 2) [place] Start: 01-03-2000 Colonoscopy COLONOSCOPY [facility] Start: 01-03-[address] COLONOGRAPHY [facility] Start: 01-03-2000 FECAL OCCULT BLOOD FECAL OCCULT BLOOD [facility] Start: 01-03-2000 Screening for malignant neoplasm of colon [facility] Start: 01-03-2000 SIGMOIDOSCOPY SIGMOIDOSCOPY [facility] Start: 1995 Mammography [facility] Start: 1995 Screening for malignant neoplasm of breast [facility] Start: 01-03-1976 Cervical cancer screen Cervical cancer screen [place], [place] Start: 01-03-1976 Screening for malignant neoplasm of cervix Cervical cancer screen [place], [place] Start: 1974 DTaP/Tdap/Td vaccine (1 - Tdap) DTaP/Tdap/Td vaccine (1 - Tdap) [facility] Start: 1974 DTaP/Tdap/Td Vaccines (1 - Tdap) DTaP/Tdap/Td Vaccines (1 - Tdap) [facility] Start: 1974 Hepatitis A Vaccines (1 of 2 - Risk 2-dose series) Hepatitis A Vaccines (1 of 2 - Risk 2-dose series) [facility] Start: 1974 Hepatitis B vaccine (1 of 3 - Risk 3-dose series) Hepatitis B vaccine (1 of 3 - Risk 3-dose series) [facility] Work Phone: Start: 1974 Urine microalbumin profile [facility] Start: 1973 ANNUAL PCP TEAM CHRONIC DISEASE VISIT ANNUAL PCP TEAM CHRONIC DISEASE VISIT [facility] Start: 1973 Anxiety Screening Anxiety Screening [facility] Start: 1973 Depression Screening Depression Screening [facility] Start: 1973 Diabetic microalbuminuria test Diabetic microalbuminuria test [place], [place] Start: 1973 Hepatitis B surface antibody level LDL CHOLESTEROL [facility] Start: 1973 HEPATITIS C SCREENING HEPATITIS C SCREENING [facility] Start: 1973 Hepatitis C screening [facility] Start: 1971 COVID-19 Vaccine (1 of 2) COVID-19 Vaccine (1 of 2) [facility] Work Phone: Start: 1971 COVID-19 Vaccine (1) COVID-19 Vaccine (1) [facility] Work Phone: Start: 1970 HIV screen HIV screen [place], [place] Start: 1970 HIV screening HIV screen [place] Start: 1967 Adult depression screening assessment DEPRESSION SCREENING [facility] Start: 1967 COVID-19 Vaccine (1) COVID-19 Vaccine (1) [facility] Work Phone: Start: 1967 Depression Monitoring Depression Monitoring [facility] Start: 1967 Depression Screen Depression Screen [facility] Start: 1967 Depresssion Monitoring Depresssion Monitoring [facility] Start: 1967 [facility] Start: 1966 DTaP/Tdap/Td vaccine (1 - Tdap) DTaP/Tdap/Td vaccine (1 - Tdap) [place] Start: 1965 3 comp foot exam completed DIABETIC FOOT EXAM [facility] Start: 1965 Diabetic foot examination [facility] Start: 1965 Preventive dental service [facility] Start: 1961 Pneumococcal 0-64 years Vaccine (1 of 1 - PPSV23) Pneumococcal 0-64 years Vaccine (1 of 1 - PPSV23) [place] Start: 1961 Pneumococcal Vaccine: 65+ (1 - PCV) Pneumococcal Vaccine: 65+ (1 - PCV) [facility] Start: 1961 PNEUMOCOCCAL: 65+ (1 - PCV) PNEUMOCOCCAL: 65+ (1 - PCV) [facility] Start: 01-03-1956 Hepatitis A Vaccines (1 of 2 - Risk 2-dose series) Hepatitis A Vaccines (1 of 2 - Risk 2-dose series) [facility] Start: 1955 Annual Wellness Visit (AWV) Annual Wellness Visit (AWV) [facility] Start: 1955 Hepatitis C screen Hepatitis C screen [place], [place] Start: 1955 Hepatitis C screening Hepatitis C screen [facility] Start: 1955 Medicare Annual Wellness (AWV) Medicare Annual Wellness (AWV) [facility] Start: 1955 Screening for malignant neoplasm of colon [facility] Start: 1955 Screening for osteoporosis [facility] Start: 1955 Statin Therapy Statin Therapy [place], [place] End: 11-02-2024 Bacteria identified in Urine by Culture [employer] Work Phone: Comment on above: Once (Lab) for 1 Occurrences starting until 11/02/2024 Once for 1 Occurrenc es starting 11/02/2024 until 11/02/2024 End: 11-11-2024 CT Abdomen and Pelvis WO and W contrast IV [employer] Work Phone: Comment on above: Once for 1 Occurrences starting 11/12/19 until 11/11/2024 End: 10-27-2020 CT CHEST/ABDOMEN/PELVIS (PO,IV) CT CHEST/ABDOMEN/PELVIS (PO,IV) Imaging Routine Malignant neoplasm of endometrium (HCC) 1 Occurrences starting 10/27/2020 until 10/27/2020 [employer] Work Phone: Comment on above: 1 Occurrences starting 10/27/2020 until 10/27/2020 CT CHEST/ABDOMEN/PEL VIS (PO,IV) CT CHEST/ABDOMEN/PELVIS (PO,IV) Imaging Routine Malignant neoplasm of endometrium (HCC) 10/27/2020 2:36 PM EDT [employer] Work Phone: End: 01-10-2021 CT [facility] Imaging Routine Once for 1 Occurrences starting 01/10/2021 until 01/10/2021 [employer] Work Phone: Comment on above: Once for 1 Occurrences starting 01/11/20 until 01/10/2021 [facility] Imaging Routine 01/10/2021 10:53 AM EDT [employer] Work Phone: End: 11-11-2024 CT Head WO and W contrast IV [employer] Work Phone: Comment on above: Once for 1 Occurrences starting 11/12/19 until 11/11/2024 Dressing Order: (Triamcinolone); Weekly; Unna boot, Multilayer compression wrap 4 layers, Single layer tubigrip Dressing Order: (Triamcinolone); Weekly; Unna boot, Multilayer compression wrap 4 layers, Single layer tubigrip Wound Ostomy Routine Ordered: 08/02/2022 [employer] Work Phone: Comment on above: Ordered: 08/02/2022 Dressing Order: Keep dressing dry & clean; Weekly; ABDs; Kerlex, Silk tape; Unna boot, Multilayer compression wrap 4 layers; Trimacinolone Dressing Order: Keep dressing dry & clean; Weekly; ABDs; Kerlex, Silk tape; Unna boot, Multilayer compression wrap 4 layers; Trimacinolone Wound Ostomy Routine Ordered: 03/26/2024 [employer] Work Phone: Comment on above: Ordered: 03/26/2024 Dressing Order: Keep dressing dry & clean; Weekly; ABDs; Kerlex, Silk tape; Unna boot, Multilayer compression wrap 4 layers; Trimacinolone Dressing Order: Keep dressing dry & clean; Weekly; ABDs; Kerlex, Silk tape; Unna boot, Multilayer compression wrap 4 layers; Trimacinolone Wound Ostomy Routine Ordered: 04/23/2024 [employer] Work Phone: Comment on above: Ordered: 04/23/2024 Dressing Order: Unna boot, Multilayer compression wrap 4 layers; Trimacinolone Dressing Order: Unna boot, Multilayer compression wrap 4 layers; Trimacinolone Wound Ostomy Routine Ordered: 08/01/2023 [employer] Work Phone: Comment on above: Ordered: 08/01/2023 Dressing Order: Week ly; ABDs (as needed); Unna boot, Multilayer compression wrap 4 layers Dressing Order: Weekly; ABDs (as needed); Unna boot, Multilayer compression wrap 4 layers Wound Ostomy Routine Ordered: 08/30/2022 [employer] Work Phone: Comment on above: Ordered: 08/30/2022 Dressing Order: Week ly; ABDs; Kerlex, Silk tape; Unna boot, Multilayer compression wrap 4 layers Dressing Order: Weekly; ABDs; Kerlex, Silk tape; Unna boot, Multilayer compression wrap 4 layers Wound Ostomy Routine Ordered: 09/27/2022 [employer] Work Phone: Comment on above: Ordered: 09/27/2022 Dressing Order: Week ly; ABDs; Kerlex, Silk tape; Unna boot, Multilayer compression wrap 4 layers; Trimacinolone Dressing Order: Weekly; ABDs; Kerlex, Silk tape; Unna boot, Multilayer compression wrap 4 layers; Trimacinolone Wound Ostomy Routine Ordered: 01/30/2024 [employer] Work Phone: Comment on above: Ordered: 01/30/2024 Dressing Order: Week ly; Kerlex, Silk tape; Unna boot, Multilayer compression wrap 4 layers Dressing Order: Weekly; Kerlex, Silk tape; Unna boot, Multilayer compression wrap 4 layers Wound Ostomy Routine Ordered: 11/22/2022 [facility] Work Phone: Comment on above: Ordered: 11/22/2022 Dressing Order: Week ly; Multilayer compression wrap 4 layers, Unna boot Dressing Order: Weekly; Multilayer compression wrap 4 layers, Unna boot Wound Ostomy Routine Ordered: 10/25/2022 [facility] Work Phone: Comment on above: Ordered: 10/25/2022 Dressing Order: Week ly; Unna boot, Multilayer compression wrap 4 layers, Single layer tubigrip Dressing Order: Weekly; Unna boot, Multilayer compression wrap 4 layers, Single layer tubigrip Wound Ostomy Routine Ordered: 02/14/2023 [facility] Work Phone: Comment on above: Ordered: 02/14/2023 Dressing Order: Xeroform; ABDs; Kerlex, Silk tape; Multilayer compression wrap 4 layers, Unna boot; Antibiotic ointment Dressing Order: Xeroform; ABDs; Kerlex, Silk tape; Multilayer compression wrap 4 layers, Unna boot; Antibiotic ointment Wound Ostomy Routine Ordered: 04/09/2023 [employer] Work Phone: Comment on above: Ordered: 04/09/2023 Dressing Order: Xeroform; ABDs; Kerlex, Silk tape; Unna boot, Multilayer compression wrap 4 layers, Single layer tubigrip; Trimacinolone Dressing Order: Xeroform; ABDs; Kerlex, Silk tape; Unna boot, Multilayer compression wrap 4 layers, Single layer tubigrip; Trimacinolone Wound Ostomy Routine Ordered: 12/05/2023 [employer] Work Phone: Comment on above: Ordered: 12/05/2023 Dressing Order: Xeroform; ABDs; Kerlex, Silk tape; Unna boot, Multilayer compression wrap 4 layers; Trimacinolone Dressing Order: Xeroform; ABDs; Kerlex, Silk tape; Unna boot, Multilayer compression wrap 4 layers; Trimacinolone Wound Ostomy Routine Ordered: 09/26/2023 [employer] Work Phone: Comment on above: Ordered: 09/26/2023 Dressing Order: Xeroform; ABDs; Kerlex, Silk tape; Unna boot, Multilayer compression wrap 4 layers; Trimacinolone Dressing Order: Xeroform; ABDs; Kerlex, Silk tape; Unna boot, Multilayer compression wrap 4 layers; Trimacinolone Wound Ostomy Routine Ordered: 11/07/2023 [employer] Work Phone: Comment on above: Ordered: 11/07/2023 Dressing Order: Xeroform; Weekly; 4x4 gauze; Kerlex, Silk tape; Multilayer compression wrap 4 layers, Unna boot; Trimacinolone Dressing Order: Xeroform; Weekly; 4x4 gauze; Kerlex, Silk tape; Multilayer compression wrap 4 layers, Unna boot; Trimacinolone Wound Ostomy Routine Ordered: 01/17/2023 [employer] Work Phone: Comment on above: Ordered: 01/17/2023 Dressing Order: Xeroform; Weekly; ABDs; Kerlex, Silk tape; Unna boot, Multilayer compression wrap 4 layers; Trimacinolone Dressing Order: Xeroform; Weekly; ABDs; Kerlex, Silk tape; Unna boot, Multilayer compression wrap 4 layers; Trimacinolone Wound Ostomy Routine Ordered: 02/27/2024 [employer] Work Phone: Comment on above: Ordered: 02/27/2024 Dressing Order: Xeroform; Weekly; Kerlex, Silk tape; Unna boot, Multilayer compression wrap 4 layers; Trimacinolone Dressing Order: Xeroform; Weekly; Kerlex, Silk tape; Unna boot, Multilayer compression wrap 4 layers; Trimacinolone Wound Ostomy Routine Ordered: 05/23/2023 [employer] Work Phone: Comment on above: Ordered: 05/23/2023 EKG 12 Lead EKG 12 Lead ECG Routine 09/23/2020 5:36 PM EST [employer] Work Phone: Home BIPAP or CPAP Home BIPAP or CPAP Respiratory Care Routine Daily until discontinued starting 09/30/2020 [employer] Phone: Comment on above: Daily until discontinued starting 2020 End: 05-11-2025 Lactic acid with reflex [employer] Work Phone: Oxygen therapy [[employer] [place] Data Set] Initiate Oxygen Therapy Protocol Respiratory Care Routine Daily until discontinued starting 09/30/2020 [employer] Phone: Comment on above: Daily until discontinued starting 2020 POCT Glucose [employer] Phone: Comment on above: As Needed until discontinued starting 4X Daily (AC & HS) u ntil discontinued starting 10/01/2020 Spirometry panel Incentive leon metry Respiratory Care Routine Every 2hr while awake until discontinued starting 09/30/2020 [employer] Phone: Comment on above: Every 2hr while awake until discontinued starting 09/30/2020 SureSwab(R) Adv Bacterial Vaginosis (BV), [facility] ([facility]) SureSwab(R) Adv Bacterial Vaginosis (BV), [facility] ([facility]) Microbiology Routine Vaginal discharge Ordered: 03/04/2024 [facility] Comment on above: Ordered: 03/04/2024 SURESWAB(R) ADV CAND ROSALINE VAGINITIS (CV), [facility] ([facility]) Sureswab(R) Adv Migdalia Vaginitis (CV), [facility] ([facility]) Lab Routine Vaginal discharge Ordered: 03/04/2024 [facility] Work Phone: Comment on above: Ordered: 03/04/2024 Tissue exam [facility] Work Phone: Comment on above: Release Upon Ordering for 1 Occurrences starting 12/22/2024 End: 11-02-2024 Urine Hold Cup Urine Hold Cup Lab Timed Once for 1 Occurrences starting 11/02/2024 until 11/02/2024 [facility] Comment on above: Once for 1 Occurrences starting 11/03/19 until 11/02/2024 [facility] Immunizations Immunization Date Immunization Notes Care Provider [facility] 04-29-2024 influenza virus vacc ine, unspecified formulation Christy Rizzo MD Work Phone: [facility] 04-17-2022 Covid-19, Pfizer Bivalent Booster, (Age 12y+), Im, 30 Mcg/0e Jerome Perdomo MD Work Phone: [facility] 04-17-2022 Influenza, High-dose Seasonal, Quadrivalent, Preservative Free Jerome Perdomo MD Work Phone: [facility] 04-17-2022 influenza virus vacc ine, unspecified formulation Jerome Perdomo MD Work Phone: [facility] 11-15-2021 Covid-19, Pfizer Gra y Top, Do Not Dilute, (Age 12 Y+), Im, L Jerome Perdomo MD Work Phone: [facility] 02-22-2022 pneumococcal polysaccharide vaccine, 23 valent Jerome Perdomo MD Work Phone: [facility] 05-16-2021 Pfizer SARS-CoV-2 Vaccination Jerome Perdomo MD Work Phone: [facility] 04-22-2021 influenza, injectabl e, quadrivalent, contains preservative Jerome Perdomo MD Work Phone: [facility] 11-11-2020 COVID-19 vaccine, ag e 12+ yr (PFIZER-BIONTECH - PURPLE TOP) Moses Acevedo MD Work Phone: [facility] Work Phone: 10-19-2020 COVID-19 vaccine, ag e 12+ yr (PFIZER-BIONTECH - PURPLE TOP) Moses Acevedo MD Work Phone: [facility] Work Phone: 04-27-2020 influenza, seasonal, injectable Jerome Perdomo MD Work Phone: [facility] 04-22-2020 influenza, injectabl e, quadrivalent, contains preservative Moses Acevedo MD Work Phone: [facility] Work Phone: 01-05-2020 pneumococcal conjuga te vaccine, 13 valent Jerome Perdomo MD Work Phone: [facility] 04-16-2019 influenza, seasonal, injectable Jerome Perdomo MD Work Phone: [facility] 04-05-2018 influenza, seasonal, injectable Jerome Perdomo MD Work Phone: [facility] 04-12-2017 influenza, seasonal, injectable Jerome Perdomo MD Work Phone: [facility] 04-28-2016 influenza, seasonal, injectable Jerome Perdomo MD Work Phone: [facility] 05-03-2015 zoster vaccine, live Neri Acevedo MD Work Phone: [facility] Work Phone: 03-30-2015 influenza, seasonal, injectable Jerome Perdomo MD Work Phone: [facility] 05-01-2014 influenza, seasonal, injectable Jerome Pedromo MD Work Phone: [facility] 05-03-2013 influenza, seasonal, injectable Jerome Perdomo MD Work Phone: [facility] 04-02-2012 influenza, seasonal, injectable Jerome Perdomo MD Work Phone: [facility] 05-02-2011 influenza, seasonal, injectable Jerome Perdomo MD Work Phone: [facility] 06-07-2010 influenza, seasonal, injectable, preservative free Jerome Perdomo MD Work Phone: [facility] 06-07-2010 pneumococcal polysaccharide vaccine, 23 valent Jerome Perdomo MD Work Phone: [facility] 06-07-2010 Nettiesole bajwa DO Work Phone: [facility] 06-10-2009 novel influenza-H1N1 -09, preservative-free, injectable Moses Acevedo MD Work Phone: [facility] Work Phone: 05-26-2009 influenza, seasonal, injectable, preservative free Jerome Perdomo MD Work Phone: [facility] 05-26-2009 Nettie bajwa DO Work Phone: [facility] 05-06-2007 influenza, seasonal, injectable Jerome Perdomo MD Work Phone: [facility] 07-02-2001 influenza, seasonal, injectable Moses Acevedo MD Work Phone: [facility] Work Phone: 05-12-1999 influenza, seasonal, injectable Moses Acevedo MD Work Phone: [facility] Work Phone: 05-06-1998 influenza, seasonal, injectable Moses Acevedo MD Work Phone: [facility] Work Phone: Payers Date Payer Category Payer Medicare supplementa l policy (as second payer) [id number] 2021 Unknown 2020 Private Health Insurance [employer] SUPPLEMENT [id number] 2020-Present [phone] [address] [place] [address] Indemnity [id number] 2020 Private Health Insurance [employer] SU[employer] [id number] 2020-Present [phone] [address] [place] [address] Indemnity [id number] 2020 Private Health Insurance [facility] [id number] 2019 Medicare MEDICARE MEDICAR E A AND B [id number] 2019-Present [phone] [place] [address] Medicare [id number] 2019 Medicare [id number] 2019 Private Health Insurance [employer] Alberto MURPHY [id number] 2019-Present [phone] [address] [place] [address] [id number] 2019 Medicare [id number] 2015 Unknown MEDICAL MUTUAL M EDICAL MUTUAL [address] xxxxxxx 2015-Present [phone] [address] [place] [address] xxxxxxx [id number] 1955 Unknown [id number] [id number]. 2.668 1955 Unknown [id number] 2.16840.1.220769.3.579. 2.66 1955 Unknown [id number] 2.16840.1.396347.3.579. 2 1955 Unknown [id number] 2.840.1.733225.3.579. 247 1955 Unknown [id number] 2.16840.1.170684.3.579. 247 1955 Unknown [id number] 2.16840.1.962654.3.579. 2 1955 Unknown [id number] 2.16840.1.892305.3.579. 247 1955 Unknown [id number] 2.840.1.681714.3.579. 247 1955 Unknown [id number] 2.16840.1.938837.3.579. 247 1955 Unknown [id number] 2.16840.1.683594.3.579. 247 1955 Unknown [id number] 2.16840.1.816352.3.579. 247 1955 Unknown [id number] 2.16840.1.476620.3.579. 247 1955 Unknown [id number] 2.16.840.1.632512.3.579. 2.479 1955 Unknown [id number] 2.16.840.1.733070.3.579. 2.479 1955 Unknown [id number] 2.16.840.1.225437.3.579. 2.479 1955 Unknown [id number] 2.16.840.1.869016.3.579. 2.479 1955 Unknown [id number] 2.16.840.1.151138.3.579. 2.479 1955 Unknown [id number] [id number]. 2.479 Social History Date Type Detail Facility Start: 09-03-2018 End: 04-06-2022 Tobacco smoking status ILIS Never smoker [facility] Start: 09-03-2018 End: 05-17-2025 Alcohol intake No [facility] Start: 1955 Sex Assigned At Not on file M [place], [place] Start: 04-03-2019 End: 12-22-2024 Alcohol intake Current non-drinker of alcohol (finding) [place], [place] Start: 04-03-2019 End: 04-06-2022 Tobacco use and exposure Never used [place] Start: 08-31-2020 End: 04-11-2023 Exposure to SARS-CoV-2 (event) Not sure [employer] Work Phone: Start: 12-20-2022 End: 05-17-2025 History of Social function [facility] National Score (1-10 0), lower number is lower risk 20 [facility] Start: 02-20-2022 Sex Female (finding) [facility] Within the last year , have you been afraid of your partner or ex-partner? No [facility] How often to you hav e a drink containing alcohol? Never [facility] Start: 1955 Sex assigned at Female S [facility] Start: 11-01-2024 Gender identity Identifies as female gender (finding) [facility] (I/We) worried wheth er (my/our) food would run out before (I/we) got money to buy more. Never true [employer] In the past 12 month s, was there a time when you were not able to pay the mortgage or rent on time? Yes [facility] Medical Equipment Procedure Code Equipment Code Equipment Origin al Text Equipment Identifier Dates 1 each by In Vit ro route 2 times daily As needed. [id number] Start: 12-01-2015 End: 03-27-2017 1 each by Does n ot apply route daily [id number] Start: 12-01-2015 End: 03-27-2017 1 each by In Vit ro route 2 times daily As needed. [id number] Start: 02-22-2018 End: 10-01-2020 1 each by Does n ot apply route daily [id number] Start: 03-27-2017 TEST 3 TIMES DAILY [id number] Start: 10-01-2020 USE TO TEST BLOO D GLUCOSE 3 TIMES DAILY [id number] Start: 10-01-2020 Test 2-3 times a day & as needed for symptoms of irregular blood glucose. Dispense sufficient amount for indicated testing frequency plus additional to accommodate PRN testing needs. [id number] Start: 10-01-2020 End: 10-01-2020 1 each by Does n ot apply route 3 times daily [id number] Start: 10-01-2020 End: 10-01-2020 Lens Acrysof Ultrasert +15.5 Diopter Acrylic Iol 1 Piece Foldable Uv Blue - [id number] Start: 11-22-2021 Lens Acrysof Ultrasert +16.5 Diopter Acrylic Iol 1 Piece Foldable Uv Blue - [id number] Start: 12-06-2021 TEST 4 TIMES NEO LY and prn [id number] Start: 04-29-2021 USE TO TEST BLOO D GLUCOSE 3 TIMES DAILY [id number] Start: 04-08-2021 BD Insulin Syrin ge U/F 30G X 1/2" 0.5 ML misc [id number] Start: 03-08-2022 End: 01-19-2023 USE DIRECTED FOUR TIMES DAILY [id number] Start: 06-22-2022 End: 11-06-2023 Use as instructed [id number] Start: 07-07-2022 End: 07-07-2023 2 times daily wi th insulin [id number] Start: 01-19-2023 Use as instructe d 2 times daily [id number] Start: 05-09-2023 End: 11-06-2023 1 each by Other route 4 times daily. As directed [id number] Start: 11-06-2023 Use as instructe d 2 times daily [id number] Start: 11-06-2023 Functional Status Date Assessment Result Facility [facility] Clinical Notes 05-21-2017 to 05-19-2025 Cuauhtemoc Machado, - 05/19/2025 3:06 PM EDTDischarge InstructionsDischarge Instr - [facility] Coordination - Acacia Ocampo RN - 05/19/2025 1:54 PM EDTSoleg Aceves, DARLIN - 05/19/2025 1:45 PM EDT Note Date & Type Note Facility 05-19-2025 Note [facility] 05-19-2025 Hospital course Narrative Hospitalist Discharge Summary Dameon Potter : 1955 Admit date: 05/11/2025 Discharge date: 05/19/2025 Admitting Physician: Jennifer León DO Primary Care Physician: Christy Rizzo MD [...] Patient clinically improved and was discharged to [facility] with close outpatient follow-up. Acute, acute on chronic, unstable/uncontrolled chronic problems/discharge diagnoses: # Sepsis secondary to urinary tract infection/cellulitis: Cx still with no growth; will deescalate Abx as appropriate - d'art Vancomycin 05/12 and Cefepime 05/13 - Off ABX # Gluteal and Groin wounds - Ospina present and to maintain to avoid wound contamination - Should attempt voiding trial while at [facility] re[facility] # Hypokalemia: Resolved # Mild DKA: [...] (98.1 F) (Temporal) Resp 16 Ht 5' 6" (1.676 m) Wt 206 lb 2.1 oz [...] Lipitor BD Insulin Syringe U/F 30G X 1/2" 0.5 ML misc Generic drug: insulin syringe-needle [...] Complexity: follow up within 7-14 calendar days (31280) [x] Severe Complexity: follow up within 7 calendar days (26495) Follow up Testing, Pending results or Referrals [...] Cuauhtemoc Machado DO Division of Hospitalist Medicine [facility] 05/19/2025, 3:06 PM [1] Past Medical History: [...] Zinc deficiency 06/21/2018 documented in this encounter [facility] 05-19-2025 Hospital Discharge instructions Cuauhtemoc Machado DO - 05/19/2025 2:11 PM EDT Please obtain an ECHO as outpatient. Kat Jiménez RN - 05/19/2025 11:53 AM EDT Images from the original note were not included. Continuity of Care Form Patient Name: Dameon Potter : 1955 Admit date: 05/11/2025 Discharge date: 05/19/2025 Code Status Order: DNR-CCA Advance Directives: Y Admitting Physician: Jennifer León DO PCP: Christy Rizzo MD Discharging Nurse: Kat LAURA Discharging Hospital Unit/Room#: N4-458/[id number] A Discharging Unit Phone Number: [phone] Emergency Contact: Extended Emergency Contact Information Primary [...] expose wisdom teeth THYROGLOSSAL DUCT EXCISION 2000 [facility]- Dr. Vin Keating THYROIDECTOMY thyroid cyst UMBILICAL [...] seasonal, injectable, preservative free 05/26/2009, 06/07/2010 Novel [id number], preservative-free 06/10/2009 Pfizer SARS-CoV-2 Vaccination 10/19/2020, 11/11/2020, [...] (Temporal) Resp 16 Ht 1.676 m (5' 6") Wt 93.5 kg (206 lb 2.1 oz) [...] Toileting Minimal assistance Feeding Minimal assistance Clinical Rn Manager Minimal assistance Med Delivery no Wound Care [...] select all that are sent with patient): colette LAURA SIGNATURE: MANAGEMENT/SOCIAL WORK SECTION Inpatient Status Date: 05/11/2025 Discharging to Facility/ Agency [facility] [address] [place] [address] Cow Tender/Bus Matron signature: ICIAN SECTION Name: Dameon Potter Prognosis: good Condition at Discharge: stable Rehab Potential (if transferring to Rehab): good Recommended Labs or Other Treatments After Discharge: Please obtain CBC/CMP in 3-5 days The individual is being admitted to a nursing facility directly from an [facility] or a unit of a [facility] that is not operated by or licensed by [facility] under section 5119.14 or 5160-3-15.1 5 [...] H&P PHYSICIAN SIGNATURE: documented in this encounter [facility] 05-19-2025 Miscellaneous Notes Care Management Progress Note Short Medical why still here: Pt accepted to [facility] Re[facility]. Bed availability today. Patient, medical team updated. [facility] rehabilitation medicine physician updated. Patient and team updated. Tasked FOCUSER to send updated med rec and MAR. Updated pt's JENNIFER Nieves. Planned Discharge Disposition: Inpatient Rehab Facility [facility] Barriers/Today we still Wait: Physician discharge work flow. Length of Stay (Days): 8 GMLOS: No GMLOS Documented TCC to follow for discharge needs. Patient Choice Patient Name: DAMEON POTTER Date of : 1955 All Providers Sent Referral Name: [facility] Phone: [phone] Address: [address] [address] Name: [facility] Address: [address] [place] [address] Confirmed pickup time of 6:00pm on 05/19/25 by transport [a]list games at phone number [phone]. Location of facility drop off is [facility]. [facility], TCC notified on secure chat. Discharge med list transmitted to [facility] per TCC request. Referral placed to [facility]CC request. Await review and response regarding ability to accept. TCC notified. [facility] unable to accept. Referral placed to [facility]. Referral placed to [facility]hab- [facility] via [facility] per TCC request. Await review and response regarding ability to accept. TCC notified. Care Management Progress Note Short Medical why still here: placement Planned Discharge Disposition: (SNF vs IPR if appropriate) Met with pt to discuss disch plan. PT rec SNF, pt has Medicare and meets admission criteria for acute rehab per [facility] application development liaison. Pt prefers [facility] as it is closer to family. If they are unable to accept she is agreeable to [facility]. Referral created to [facility]. [...] to transition to ECF would be willing. VANCE explained that this information can be provided to the snf she dc to, that way she can be assessed after receiving therapy. Pt does have support in friends who assist in going to the store and completing task around the home and going to the store. Message sent to security sales manager to provide update and request for snf list in [place]. Pt agreeable to referral in case she would be able to return home after snf stay. Referral made. Met with patient at bedside, patient is agreeable to SNF placement. Explained Medicare stars and [facility]. All questions answered. Patient had poor experience at [facility] in the past, would not like to [...] Discharge plan home. documented in this encounter [facility] 05-19-2025 History of Present illness Narrative Nutrition [...] d/t incontinence and location of wounds - Ospina ordered and placed 05/12. Po intakes or [...] working with PT. She is observed on envsmallpox hospital bed. Now with D/C orders for IP [...] assess Anthropometric Measures: Height: 167.6 cm (5' 6") Current Body Weight: 93.4 kg (206 lb) [place] Body Weight (lbs) (Calculated): 130 lbs [place] Body Weight (Kg) (Calculated): 59 kg % [place] Body Weight (Calculated): 154.6 % BMI (kg/m2) [...] Sharon Aceves MS, RD, LD Contact: or Mindmancer Chat (dial *[phone] from hospital phone) [1] apixaban, 5 mg, [...] original note were not included. PHYSICAL THERAPY [facility] Treatment Note Name/MRN: Dameon Potter ([id number]) Date of : 1955 Age: 70 y.o. Room/Bed: N4-458/N4-458 A Discharge Recommendation: Group Home Facility Prior Level of Function Prior Level [...] Outcome: Continued Education Needed Outcome Measures AM-PAC JH-HLM JH-HLM Scale: Sat at edge of [...] 6 LIVER PROFILE: No results for input(s): "AST", "ALT", "BILITOT", "ALKPHOS", "PROT" in the last 72 hours. No lab exists for component: LABALBU PT/INR: No results for input(s): "PROTIME", "INR" in the last 72 hours. CARDIAC ENZYMES: No results for input(s): "TROPONINI" in the last 72 hours. Procalcitonin: No results found for: "PROCAL" COVID-19 PCR: No results for input(s): "COVID19" in the last 72 hours. Objective: Vitals: BP 128/95 (BP Location: Right arm, Patient Position: Sitting) Pulse 62 Temp 36.5 C (97.7 F) (Temporal) Resp 16 Ht 5' 6" (1.676 m) Wt 206 lb 2.1 oz [...] and Cefepime 05/13 Gluteal and Groin wounds -ospina drinage to avoid wound contamination. Hypokalemia: Resolved [...] Melendrez Mobile Relation: Niece Secondary Emergency Contact: TariqJose Mobile Relation: Huma Alber Gil DO [facility] [1] Past Medical History: Diagnosis Date Anxiety [...] original note were not included. PHYSICAL THERAPY [facility] Treatment Note Name/MRN: Dameon Potter ([id number]) Date of : 1955 Age: 70 y.o. Room/Bed: N4-458/N4-458 A Discharge Recommendation: Group Home Facility Prior Level of Function Prior Level of ADL Function: Required Assist Prior Level of Mobility: Independent; Device: Front wheeled walker Prior Level of Transfers: Independent Assessment No progress made towards goals. Difficult bed mobility this session secondary to sacral wound pain. Unable to fully "scoot" to edge of bed enough to attempt transfer due to pain with scooting. Sat with legs dangling off edge of bed for sitting balance work to prepare for standing balance necessary for higher level weightbearing activities. Though we did not achieve a successful transfer this session, patient verbalizes having been to and from the recliner today and that the nurse had to "hold her like a baby" to get her back in bed. Recommend long term facility upon discharge. Subjective Patient in bed [...] original note were not included. OCCUPATIONAL THERAPY [facility] Treatment Note Name/MRN: Dameon Potter ([id number]) Date of : 1955 Age: 70 y.o. Room/Bed: N4-458/N4-458 A Discharge Recommendation: Group Home Facility Prior Level of Function Prior Level [...] 6 LIVER PROFILE: No results for input(s): "AST", "ALT", "BILITOT", "ALKPHOS", "PROT" in the last 72 hours. No lab exists for component: LABALBU PT/INR: No results for input(s): "PROTIME", "INR" in the last 72 hours. CARDIAC ENZYMES: No results for input(s): "TROPONINI" in the last 72 hours. Procalcitonin: No results found for: "PROCAL" COVID-19 PCR: No results for input(s): "COVID19" in the last 72 hours. Objective: Vitals: BP 139/68 (BP Location: Right arm, Patient Position: Sitting) Pulse 58 Temp 36.8 C (98.3 F) (Temporal) Resp 16 Ht 5' 6" (1.676 m) Wt 206 lb 2.1 oz [...] 05/13 Gluteal and Groin wounds -cont Cefepime -ospina drinage to avoid wound contamination. Hypokalemia: Resolved [...] Emergency Contact Information Primary Emergency Contact: Rossbi SnowNievesBeckieJennifer Mobile Relation: Niece Secondary Emergency Contact: Jose Potter Mobile Relation: Sibling Alber DO Jeffery [facility] [1] Past Medical History: Diagnosis Date Anxiety [...] and perineal wound. Called and updated family(Tariq Snow,Roe) on 05/14 including discussion of imaging findings/PET [...] 6 LIVER PROFILE: No results for input(s): "AST", "ALT", "BILITOT", "ALKPHOS", "PROT" in the last 72 hours. No lab exists for component: LABALBU PT/INR: No results for input(s): "PROTIME", "INR" in the last 72 hours. CARDIAC ENZYMES: No results for input(s): "TROPONINI" in the last 72 hours. Procalcitonin: Lab Results Component Value Date PROCAL 0.25 (H) 05/14/2025 COVID-19 PCR: No results for input(s): "COVID19" in the last 72 hours. Objective: Vitals: BP 150/77 Pulse 60 Temp 36.9 C (98.5 F) (Temporal) Resp 16 Ht 5' 6" (1.676 m) Wt 206 lb 2.1 oz [...] 05/13 Gluteal and Groin wounds -cont Cefepime -ospina drinage to avoid wound contamination. Hypokalemia: Resolved [...] Emergency Contact: Jose Potter Mobile Relation: Huma Alber Jeffery, Division of Hospitalist Medicine [facility] [1] Past Medical History: Diagnosis Date Anxiety [...] original note were not included. OCCUPATIONAL THERAPY [facility] Initial Evaluation Name/MRN: Dameon Potter ([id number]) Evaluation Date: 05/15/2025 Date of : 1955 Admission Date: 05/11/2025 5:34 PM Age: 70 y.o. 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 Diabetic retinopathy associated with type 2 diabetes mellitus ([facility]) 07/05/2022 Malignant neoplasm of uterus (HCC) 07/05/2022 Malnutrition of mild degree (Bianchi: 75% to less than 90% of standard weight) ([facility]) 07/05/2022 Moderate recurrent major depression (CMS/HCC) 07/05/2022 Thyroglossal duct cyst 07/05/2022 Type 2 diabetes mellitus with hyperglycemia ([facility]) 07/05/2022 Postmenopausal bleeding 09/03/2020 Dry eye syndrome of bilateral lacrimal glands 11/04/2018 Nuclear sclerotic cataract, bilateral 05/24/2017 Posterior subcapsular age-related cataract of left eye 05/22/2017 Primary open angle glaucoma of both eyes, mild stage 11/13/2016 Cortical cataract of both eyes 05/05/2015 Chronic sinusitis 03/12/2013 Endometrial cancer ([facility]) 09/30/2020 Debility 06/20/2018 Morbid obesity (CMS/HCC) 01/31/2018 [...] Needs Assist Receives Help From: Friend(s) 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 Goals and/or treatment [...] expose wisdom teeth THYROGLOSSAL DUCT EXCISION 2000 [facility]- Dr. Vin Keating THYROIDECTOMY thyroid cyst UMBILICAL HERNIA REPAIR 01/29/2018 w/ LRYGB and Lap Aggie - [facility] UPPER GASTROINTESTINAL ENDOSCOPY 03/20/2017 pre op, [facility] WISDOM TOOTH EXTRACTION 2013 [facility] Images from the original note were not included. PHYSICAL THERAPY [facility] Treatment Note Name/MRN: Dameon Potter ([id number]) Date of : 1955 Age: 70 y.o. Room/Bed: N4-458/N4-458 A Discharge Recommendation: Group Home Facility Prior Level of Function Prior Level [...] from the original note were not included. [facility] Progress Note Dameon Potter AGE: [...] increased urinary frequency. Wound Care consulted for " Pressure Injury; Sacrum". Patient resting in envella bed. Treatment noted [...] (Temporal) Resp 18 Ht 1.676 m (5' 6") Wt 93.5 kg (206 lb 2.1 oz) SpO2 98% BMI 33.27 kg/m PHYSICAL EXAM General appearance: in no apparent distress, well developed and well nourished, non-toxic, in no respiratory distress and acyanotic, and alert Skin: warm and dry Pulmonary: Normal effort, no respiratory distress, no cyanosis Abdominal fold/Groin: Scattered superficial wounds noted. Baskin/red tissue. Moisture/excoriation noted. Erythema present. 05/12/25 Bilateral [...] 0.66 05/15/2025 PT/INR: No results found for: "PROTIME", "INR" Prealbumin: No results found for: PREALBUMIN Albumin:No components found for: LABALBU Sed Rate:No results found for: SEDRATE Micro: No components found for: BC Assessment/Plan: Nursing staff to perform dressing change: Abdominal Fold/Groin: Fungal Dermatitis -Cleanse with Hibiclens soap and water. Apply miconazole powder. Leave ROUSTABOUT HEAD. Apply BID and PRN Bilateral medial thighs: Fungal Dermatitis -Cleanse with Hibiclens soap and water. Apply miconazole powder. Leave ROUSTABOUT HEAD. 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 Apply miconazole powder to wound bed, followed by ET mix. Leave ROUSTABOUT HEAD. Apply BID and PRN -waffle chair cushion -Q2hr/PRN turns -glide sheets for T&R -continence checks Q1-2 Hrs/PRN -Envella bed with pillow offloading - Currently resting on Nutritional support Wound Care to follow Recommend to follow up at [facility] Outpatient wound care center after hospital discharge. Any questions or concerns please secure chat "ACH wound/ostomy". Thank you for the consult! I personally [...] expose wisdom teeth THYROGLOSSAL DUCT EXCISION 2000 [facility]- Dr. Vin Keating THYROIDECTOMY thyroid cyst UMBILICAL [...] daily. BD Insulin Syringe U/F 30G X 1/2" 0.5 ML misc 2 times daily with [...] pen needle 32G x 4 mm [facility] Use as instructed 2 times daily 200 [...] 4 LIVER PROFILE: No results for input(s): "AST", "ALT", "BILITOT", "ALKPHOS", "PROT" in the last 72 hours. No lab exists for component: LABALBU PT/INR: No results for input(s): "PROTIME", "INR" in the last 72 hours. CARDIAC ENZYMES: No results for input(s): "TROPONINI" in the last 72 hours. Procalcitonin: Lab Results Component Value Date PROCAL 0.25 (H) 05/14/2025 COVID-19 PCR: No results for input(s): "COVID19" in the last 72 hours. Objective: Vitals: BP 146/71 (BP Location: Left arm, Patient Position: Sitting) Pulse 57 Temp 36 C (96.8 F) (Temporal) Resp 18 Ht 5' 6" (1.676 m) Wt 206 lb 2.1 oz [...] 05/13 Gluteal and Groin wounds -cont Cefepime -ospina drinage to avoid wound contamination. Hypokalemia: Resolved [...] Huma Campo Mba, Division of Hospitalist Medicine [facility] [1] Past Medical History: Diagnosis Date Anxiety [...] original note were not included. PHYSICAL THERAPY [facility] Initial Evaluation Name/MRN: Dameon Potter ([id number]) Evaluation Date: 05/14/2025 Date of : 1955 Admission Date: 05/11/2025 5:34 PM Age: 70 y.o. Room/Bed: [facility] A Discharge Recommendation: Group Home Facility Assessment IMPRESSION: Pt admitted for below. 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 [...] Pressure injury of right buttock, stage 2 ([facility]/HCC) 05/11/2025 Cellulitis of lower extremity 11/21/2024 Weight gain 11/21/2024 Poor sleep hygiene 11/10/2024 Cognitive decline 11/06/2024 Atrial fibrillation (HCC) 11/06/2024 Moderate aortic stenosis 11/06/2024 Severe malnutrition (CMS/HCC) (HCC) 11/03/2024 Lymphedema of both lower extremities 11/01/2023 MDD (major depressive disorder) 11/01/2023 Urinary incontinence 11/01/2023 Asthma ([facility]/HCC) 11/01/2023 Chronic rhinitis 11/01/2023 RADHA (obstructive sleep apnea) 11/01/2023 Polycystic ovarian syndrome 11/01/2023 Corneal epithelial basement membrane dystrophy 10/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 Diabetic retinopathy associated with type 2 diabetes mellitus ([facility]) 07/05/2022 Malignant neoplasm of uterus ([facility]) 07/05/2022 Malnutrition of mild degree (Bianchi: 75% to less than 90% of standard weight) ([facility]) 07/05/2022 Moderate recurrent major depression ([facility]/HCC) 07/05/2022 Thyroglossal duct cyst 07/05/2022 Type 2 diabetes mellitus with hyperglycemia ([facility]) 07/05/2022 Postmenopausal bleeding 09/03/2020 Dry eye syndrome of bilateral lacrimal glands 11/04/2018 Nuclear sclerotic cataract, bilateral 05/24/2017 Posterior subcapsular age-related cataract of left eye 05/22/2017 Primary open angle glaucoma of both eyes, mild stage 11/13/2016 Cortical cataract of both eyes 05/05/2015 Chronic sinusitis 03/12/2013 Endometrial cancer (HCC) 09/30/2020 Debility 06/20/2018 Morbid obesity ([facility]/HCC) 01/31/2018 Hepatic steatosis 01/29/2018 Calculus of gallbladder [...] of Care supervision is transferred to a [facility] Therapy Services Physical Therapist. Goals and/or treatment [...] expose wisdom teeth THYROGLOSSAL DUCT EXCISION 2000 [facility]- Dr. Vin Keating THYROIDECTOMY thyroid cyst UMBILICAL HERNIA REPAIR 01/29/2018 w/ LRYGB and Lap Aggie - [facility] UPPER GASTROINTESTINAL ENDOSCOPY 03/20/2017 pre op, [facility]ografakis WISDOM TOOTH EXTRACTION 2013 [facility] Images from the original note were not included. [facility] Progress Note Dameon Potter AGE: [...] increased urinary frequency. Wound Care consulted for " Pressure Injury; Sacrum". Patient resting in envella bed. Treatment noted [...] (97.5 F) (Temporal) Resp 12 Ht 5' 6" (1.676 m) Wt 206 lb 2.1 oz (93.5 kg) SpO2 96% BMI 33.27 kg/m PHYSICAL EXAM General appearance: in no apparent distress, well developed and well nourished, non-toxic, in no respiratory distress and acyanotic, and alert Skin: warm and dry Pulmonary: Normal effort, no respiratory distress, no cyanosis Abdominal fold/Groin: Scattered superficial wounds noted. Baskin/red tissue. Moisture/excoriation noted. Erythema present. 05/12/25 Bilateral [...] 0.70 05/14/2025 PT/INR: No results found for: "PROTIME", "INR" Prealbumin: No results found for: PREALBUMIN Albumin:No components found for: LABALBU Sed Rate:No results found for: SEDRATE Micro: No components found for: BC Assessment/Plan: Nursing staff to perform dressing change: Abdominal Fold/Groin: Fungal Dermatitis -Cleanse with Hibiclens soap and water. Apply miconazole powder. Leave ROUSTABOUT HEAD. Apply BID and PRN Bilateral medial thighs: Fungal Dermatitis -Cleanse with Hibiclens soap and water. Apply miconazole powder. Leave ROUSTABOUT HEAD. Apply BID and PRN Sacrum extending to [...] to follow Recommend to follow up at [facility] Outpatient wound care center after hospital discharge. Any questions or concerns please secure chat "ACH wound/ostomy". Thank you for the consult! I personally [...] expose wisdom teeth THYROGLOSSAL DUCT EXCISION 2000 [facility]- Dr. Vin Keating THYROIDECTOMY thyroid cyst UMBILICAL [...] daily. BD Insulin Syringe U/F 30G X 1/2" 0.5 ML misc 2 times daily with [...] History: Medical History[1] LABS: CBC: Recent Labs 05/11/25 2353 05/13/25 1350 05/14/25 0108 WBC 12.7* 10.4 8.7 RBC 3.64* 3.49* 3.21* HGB 11.1* 10.4* 9.6* HCT 33.1* 32.9* 30.0* MCV 90.9 94.3 93.5 RDW 13.0 13.3 13.2 PLT 325 303 264 BMP: Recent Labs 05/11/25 1811 05/11/25 2353 05/14/25 0108 NA 135* 138 140 K 3.4* 3.0* 3.4* CL 103 108* 113* CO2 18* 21* 20* BUN 16 CREATININE 1.16* 0.92 0.70 GLUCOSE 399* 176* 115 CALCIUM 8.5* 8.6* 8.0* ANIONGAP 14* 9 7 LIVER PROFILE: Recent Labs 05/11/25 1811 05/11/25 2353 AST 16 15 ALT <6 <6 BILITOT 1.3* 1.0 ALKPHOS 77 68 PROT 6.8 6.5 PT/INR: No results for input(s): "PROTIME", "INR" in the last 72 hours. CARDIAC ENZYMES: No results for input(s): "TROPONINI" in the last 72 hours. Procalcitonin: Lab Results Component Value Date PROCAL 0.25 (H) 05/14/2025 COVID-19 PCR: No results for input(s): "COVID19" in the last 72 hours. Objective: Vitals: BP 122/65 (BP Location: Left arm, Patient Position: Lying) Pulse 52 Temp 36.3 C (97.3 F) (Temporal) Resp 16 Ht 5' 6" (1.676 m) Wt 206 lb 2.1 oz [...] 05/13 Gluteal and Groin wounds -cont Cefepime -ospina drinage to avoid wound contamination. Hypokalemia: will [...] Relation: Niece Secondary Emergency Contact: Jose Potter Laura Mobile Relation: Huma Campo Jeffery, Division of Hospitalist Medicine [facility] [1] Past Medical History: Diagnosis Date Anxiety [...] d/t incontinence and location of wounds - Ospina ordered and placed 05/12. Po intakes or regular diet 18245% this morning. CBW 201# - some wt loss is noted, however not clinically significant at this time. A1c improved since October 12.9% -> 7.3%. Pt unavailable for RD discussion x 2 attempts. Estimated Daily Nutrient Needs: Energy Requirements Based On: Kcal/kg Weight Used for Energy Requirements: [place] Weight for Energy Calculation (kg): 59 kg Total Energy Requirements (kcals/day): 8769-7985 (25-30 kcals/kg) Weight Used for Protein Requirements: [place] Weight in Kg Used for Protein Requirements: [...] Intake/Output Summary (Last 24 hours) at 05/13/2025 1407 Last data filed at 05/13/2025 0952 Gross per 24 hour Intake 1547.5 ml Output 310 ml Net 1237.5 ml Labs/Meds Reviewed: Scheduled Meds[3] Continuous Meds[4] BMP: Recent Labs 05/11/25181005/11/252352 NA 135* 138 K 3.4* 3.0* CL 103 108* CO2 18* 21* BUN 21 20 CREATININE 1.16* 0.92 GLUCOSE 399* 176* CALCIUM 8.5* 8.6* MG 1.4* 2.0 PHOS 2.1* -- HEPATIC: Recent Labs 05/11/25181005/11/253 AST 16 15 ALT <6 <6 BILITOT 1.3* 1.0 ALKPHOS 77 68 CBC: Recent Labs 05/11/25181005/11/25 1937 05/11/25235205/13/25 1350 WBC 16.9* -- 12.7* 10.4 HGB 11.6* 11.5 11.1* 10.4* HCT 35.2 -- 33.1* 32.9* MCV 91.0 -- 90.9 94.3 PLT 336 -- 325 303 Lab Results Component Value Date EFBP 61 11/03/2024 Lab Results Component Value Date LDLCALC 71 04/29/2024 HDL 44 04/29/2024 CHOL 142 04/29/2024 TRIG 137 04/29/2024 Lab Results Component Value Date TSH 3.03 11/02/2024 VITD25 22 (L) 04/06/2021 EIOFONDZ41 1,369 (H) 11/03/2024 FOLATE 16.6 03/04/2020 ZINC 74.5 03/04/2020 FERRITIN 77 03/04/2020 Lab Results Component Value Date HGBA1C 7.3 (H) 05/11/2025 HGBA1C 12.9 (H) 11/02/2024 HGBA1C 12.4 04/29/2024 Recent Labs 05/11/25 20205/11/25 2326 05/12/25 0741 05/12/25 1115 05/12/25 1638 05/12/25 1935 05/13/25 0810 05/13/25 1222 POCGLU 273* 176* 146* 133* 243* 207* 130* 149* Current Nutrition Therapies: Adult diet Regular Current Oral Intake Average Meal Intake: 76-100% Average Supplements Intake: None Ordered Anthropometric Measures: Height: 167.6 cm (5' 6") Current Body Weight: 91.2 kg (201 lb) [place] Body Weight (lbs) (Calculated): 130 lbs [place] Body Weight (Kg) (Calculated): 59 kg % [place] Body Weight (Calculated): 154.6 % BMI (kg/m2) [...] Discharge Planning: Too soon to determine Sharon Guevaradavin MS, RD, LD Contact: or Mindmancer Chat (dial *[phone] from hospital phone) [1] Past Medical History: [...] WISDOM TOOTH EXTRACTION 2013 [facility] [3] apixaban, 5 mg, Oral, [...] Medical History[1] LABS: CBC: Recent Labs 05/11/25181005/11/25 19305/11/25 2353 WBC 16.9* -- 12.7* RBC 3.87 [...] 6.8 6.5 PT/INR: No results for input(s): "PROTIME", "INR" in the last 72 hours. CARDIAC ENZYMES: No results for input(s): "TROPONINI" in the last 72 hours. Procalcitonin: Lab Results Component Value Date PROCAL 0.49 (H) 05/11/2025 COVID-19 PCR: No results for input(s): "COVID19" in the last 72 hours. Objective: Vitals: BP (!) 165/81 (BP Location: Right arm, Patient Position: Lying) Pulse 56 Temp 36.2 C (97.2 F) (Temporal) Resp 16 Ht 5' 6" (1.676 m) Wt 201 lb 4.5 oz [...] 05/13 Gluteal and Groin wounds -cont Cefepime -ospina drinage to avoid wound contamination. Hypokalemia: will [...] Relation: Niece Secondary Emergency Contact: Jose Potter Laura Mobile Relation: Huma Campo Mba, DO Division of Hospitalist Medicine [facility] (formerly [facility]) [1] Past Medical History: Diagnosis Date Anxiety [...] complication (HCC) Urinary tract infection Uterine cancer ([facility]) Vitamin D deficiency 05/10/2017 Zinc deficiency 06/21/2018 [...] Date: 05/11/2025 PCP: Christy Rizzo MD Room#: N4-751/N4-510 A BRIEF HOSPITAL COURSE: 70-yo F, PMHx [...] History[1] LABS: CBC: Recent Labs 05/11/25181005/11/25 1937 05/11/253 WBC 16.9* -- 12.7* RBC 3.87 -- 3.64* HGB 11.6* 11.5 11.1* HCT 35.2 -- 33.1* MCV 91.0 -- 90.9 RDW 13.2 -- 13.0 PLT 336 -- 325 BMP: Recent Labs 05/11/25181005/11/253 NA 135* 138 K 3.4* 3.0* CL 103 108* CO2 18* 21* BUN 21 20 CREATININE 1.16* 0.92 GLUCOSE 399* 176* CALCIUM 8.5* 8.6* ANIONGAP 14* 9 LIVER PROFILE: Recent Labs 05/11/25181005/11/25 2353 AST 16 15 ALT <6 <6 BILITOT 1.3* 1.0 ALKPHOS 77 68 PROT 6.8 6.5 PT/INR: No results for input(s): "PROTIME", "INR" in the last 72 hours. CARDIAC ENZYMES: No results for input(s): "TROPONINI" in the last 72 hours. Procalcitonin: Lab Results Component Value Date PROCAL 0.49 (H) 05/11/2025 COVID-19 PCR: No results for input(s): "COVID19" in the last 72 hours. Objective: Vitals: BP 145/76 (BP Location: Left arm, Patient Position: Lying) Pulse 71 Temp 36.2 C (97.2 F) (Temporal) Resp 16 Ht 5' 6" (1.676 m) Wt 216 lb (98 kg) [...] 05/12 Gluteal and Groin wounds -cont Cefepime -ospina drinage to avoid wound contamination. Hypokalemia: will [...] Contact: Jose Potter Mobile Relation: Sibling Alber Jeffery, Division of Hospitalist Medicine [facility] ([facility] [1] Past Medical History: Diagnosis Date Anxiety [...] mL/hr (05/12/25 0637) documented in this encounter [facility] 05-19-2025 Nurse Note Wound Care consulted for [...] pain to areas indicated above. Pt with Ospina Catheter in place and securement device to left thigh. For Abdominal fold/Groin, Bilateral medial thighs, Sacrum extending to Bilateral Buttock wound assessments and treatment plan, please see Wound/Ostomy CLINICAL DERMATOLOGIST progress notes and treatment plans. Prevention Measures in place, including: Envella Bed, E[place]oy sheet with pillows/wedges, (pt turned to right side with wedge pillow), Bilateral foam heel protectors (pt declined at this time but agreeable to leave at bedside for future use), Heels elevated off bed on pillows, Bilateral Elbows (off loaded on pillow), Sacral foam ( please follow Wound Ostomy/CLINICAL DERMATOLOGIST treatment plan), ET mix and Zinc/Moisture Barrier [...] location of wounds. Dr. Gil notified and Ospina order placed. documented in this encounter [facility] 05-18-2025 Note Referral placed to [facility]- [facility] via [facility] per TCC request. Await review and response regarding ability to accept. TCC notified. [facility] 05-18-2025 Note Madan Lopes unable to accept. Referral placed to [facility]. [facility] 05-18-2025 Note Referral placed to R ehab- Madan Lopes via [facility] per TCC request. Await review and response regarding ability to accept. TCC notified. [facility] 05-16-2025 Consult note Associated Order (s): IP CONSULT TO CARDIOLOGY [facility] Electrophysiology Consult Note Reason for Consult/Chief Complaint: [...] source Temporal, resp. rate 16, height 5' 6" (1.676 m), weight 206 lb 2.1 oz (93.5 kg), SpO2 98%. @IODETAILS@ @[id number]@ Physical Exam Vitals reviewed. Constitutional: Appearance: Normal [...] content normal. Judgment: Judgment normal. Laboratory Tests: @[id number](WBC:5,HGB:5,HCT:5,M CV:5,PLT:5)@ Lab Results Component Value Date GLUCOSE [...] TRIG 414 06/22/2021 No results found for: "CHOLHDL" No components found for: NTPROBNP Lab Results Component Value Date CKTOTAL 47 05/11/2025 No components found for: "LVEF", LVEFMODE Radiology: CXR: personally reviewed: Cardiac Tests: [...] over the years as an outpatient. Ricky Clark MD DATE of SERVICE: 05/16/2025 [1] Past [...] expose wisdom teeth THYROGLOSSAL DUCT EXCISION 2000 [facility]- Dr. Vin Keating THYROIDECTOMY thyroid cyst UMBILICAL [...] from the original note were not included. [facility] CONSULT Note Dameon Potter AGE: [...] increased urinary frequency. Wound Care consulted for " Pressure Injury; Sacrum". Patient resting in bed at time of [...] (97.5 F) (Temporal) Resp 16 Ht 5' 6" (1.676 m) Wt 216 lb (98 kg) SpO2 98% BMI 34.86 kg/m PHYSICAL EXAM General appearance: in no apparent distress, well developed and well nourished, non-toxic, in no respiratory distress and acyanotic, and alert Skin: warm and dry Pulmonary: Normal effort, no respiratory distress, no cyanosis Abdominal fold/Groin: Scattered superficial wounds noted. Baskin/red tissue. Moisture/excoriation noted. Erythema present. 05/12/25 Bilateral [...] 0.92 05/11/2025 PT/INR: No results found for: "PROTIME", "INR" Prealbumin: No results found for: PREALBUMIN Albumin:No components found for: LABALBU Sed Rate:No results found for: SEDRATE Micro: No components found for: BC Assessment/Plan: Nursing staff to perform dressing change: Abdominal Fold/Groin: Fungal Dermatitis -Cleanse with Hibiclens soap and water. Apply miconazole powder. Leave ROUSTABOUT HEAD. Apply BID and PRN Bilateral medial thighs: Fungal Dermatitis -Cleanse with Hibiclens soap and water. Apply miconazole powder. Leave ROUSTABOUT HEAD. Apply BID and PRN Sacrum extending to [...] to follow Recommend to follow up at [facility] Outpatient wound care center after hospital discharge. Any questions or concerns please secure chat "ACH wound/ostomy". Thank you for the consult! I personally [...] expose wisdom teeth THYROGLOSSAL DUCT EXCISION 2000 [facility]- Dr. Vin Keating THYROIDECTOMY thyroid cyst UMBILICAL [...] daily. BD Insulin Syringe U/F 30G X 1/2" 0.5 ML misc 2 times daily with [...] pen needle 32G x 4 mm [facility] Use as instructed 2 times daily 200 [...] as of this encounter: 1.676 m (5' 6"). Weight as of this encounter: 98 kg (216 lb). DW: 98 kg Lab Results Component Value Date CREATININE 1.16 (H) 05/11/2025 CREATININE 0.85 11/05/2024 BUN 21 05/11/2025 BUN 27 (H) 11/05/2024 WBC 16.9 (H) 05/11/2025 WBC 6.0 12/22/2024 Calculated CrCl: 69 mL/min (Cockcroft-Gault) Consulted By: Jennifer León Infectious Diagnosis: SSTI / UTI (AUC Goal 400-600 mg/L*hr) Random Vancomycin Level Due: 05/13/25 Antimicrobials: Patient recently received an antibiotic (last 12 hours) Date/Time Action Medication Dose Rate 05/11/25 193 New Bag cefTRIAXone (Rocephin) 1,000 mg in sodium chloride 0.9 % 50 mL IVPB Mini-Bag Plus 1,000 mg 100 mL/hr Assessment/Plan: Doses, serum creatinine, and vancomycin levels interfaced automatically to [employer] and data has been analyzed and interpreted. [...] via Secure Chat documented in this encounter [facility] 05-11-2025 Note [facility] History and physical note Images from [...] Patient does not have Septic Shock. Jennifer León, Past Medical History: Medical History[1] Past Surgical [...] (97.7 F) (Temporal) Resp 17 Ht 5' 6" (1.676 m) Wt 216 lb (98 kg) [...] -- PLT 336 -- BMP: Recent Labs 05/11/251810 NA 135* K 3.4* CL 103 CO2 18* BUN 21 CREATININE 1.16* GLUCOSE 399* CALCIUM 8.5* ANIONGAP 14* LIVER PROFILE: Recent Labs 05/11/251810 AST 16 ALT <6 BILITOT 1.3* ALKPHOS 77 PROT 6.8 PT/INR: No results for input(s): "PROTIME", "INR" in the last 72 hours. CARDIAC ENZYMES: No results for input(s): "TROPONINI" in the last 72 hours. Procalcitonin: No results found for: "PROCAL" Urine Culture: Results for orders placed or [...] ug/ml COVID-19 PCR: No results for input(s): "COVID19" in the last 72 hours. I reviewed: [...] Extended Emergency Contact Information Primary Emergency Contact: Nieves MelendrezJennifer Mobile Relation: Mela Secondary Emergency Contact: Jose Potter Laura Mobile Relation: Sibling [employer] Dameon Potter : 1955 Primary Care Physician: Christy Rizzo MD The patient and/or family/surrogate voluntarily agreed to participate in ACP services. Patient s cognitive capacity: Alert and oriented Code Status: [_] [FULL CODE - Continue all advanced life support: CPR,intubation,invasive procedures] [X] [DNR-CCA - DO NOT do CPR, intubation] [_] [DNR-LOGGING EQUIPMENT OPERATOR - Comfort care only] [_] DNR form [...] life care, with patient and/or family/surrogate. Jennifer León DO Division of Hospitalist Medicine [employer] [1] Past Medical History: Diagnosis Date Anxiety [...] expose wisdom teeth THYROGLOSSAL DUCT EXCISION 2000 [facility]- Dr. Vin Keating THYROIDECTOMY thyroid cyst UMBILICAL [...] Rfl: BD Insulin Syringe U/F 30G X 1/2" 0.5 ML misc, 2 times daily with [...] Itching Other Itching documented in this encounter [facility] 05-11-2025 Emergency department Note Emergency Department Encounter [facility] Patient: Dameon Potter : 1955 [...] of this encounter. ED Course as of 05/11/252253 Mon May 11, [id number] 70-year-old presents emergency department today with generalized [...] Patient will require admission for placement. [BM] 1854 CBC auto differential(!) Significant for elevated white [...] hydroxybutyrate and VBG for DKA workup. [JM] 192 BETA HYDROXYBUTYRATE(!): 9.6 [BM] ED Course User [...] DO [employer] Nettie Rhodes DO 05/11/25 2260 Images from the original note were not [...] daily. BD INSULIN SYRINGE U/F 30G X 1/2" 0.5 ML MISC 2 times daily with [...] Abnormal Glucose 273 (*) Narrative: Performed by: [facility], [address] [place], [place] [id number] IA ID: [id number] BLOOD CULTURE - Normal Blood Culture Blood culture incubation started Narrative: Blood Collection Site: Right Wrist BLOOD CULTURE - Normal Blood Culture Blood culture incubation started Narrative: Blood Collection Site: Left Arm URINE CULTURE, ORDERABLE Narrative: The following orders were created for panel order Urine culture. Procedure Abnormality Status --------- ------ Urine culture[[id number]] Urine Hold Cup[[id number]] Please view results for these tests on [...] kg (216 lb) Height: 1.676 m (5' 6") The patient presented with a chief complaint [...] x 1. Case was discussed with Dr. León for admission due to severe sepsis and DKA. Patient was accepted to the general medical floor. ED Course as of 05/11/252027May 11, [id number] 70-year-old presents emergency department today with generalized [...] Patient will require admission for placement. [BM] 1854 CBC auto differential(!) Significant for elevated white [...] hydroxybutyrate and VBG for DKA workup. [JM] 192 BETA HYDROXYBUTYRATE(!): 9.6 [BM] ED Course User [...] Deepali WISDOM TOOTH EXTRACTION [employer] [3] [...] 11:42 PM EDT documented in this encounter [facility] 01-03-2025 Telephone encounter Note Patient called with negative PET scan. With this and negative biopsy unlikely recurrent endometrial cancer. Will send to her primary care physician, possible pulmonary consult. [facility] 01-03-2025 Miscellaneous Notes Patient called with negative PET scan. With this and negative biopsy unlikely recurrent endometrial cancer. Will send to her primary care physician, possible pulmonary consult. documented in this encounter [facility] 01-01-2025 Telephone encounter Note We have been unable to reach your patient to schedule their testing. Test Name: Transthoracic echocardiogram (TTE) complete with contrast, bubble, strain, and 3D PRN 1st Attempt: per chart this was completed and resulted 11/03/24. TE to office. 01/01/25 LR [facility] 01-01-2025 Miscellaneous Notes We have been unable to reach your patient to schedule their testing. Test Name: Transthoracic echocardiogram (TTE) complete with contrast, bubble, strain, and 3D PRN 1st Attempt: per chart this was completed and resulted 11/03/24. TE to office. 01/01/25 LR documented in this encounter [facility] 12-23-2024 Telephone encounter Note S: Patient and her home care nurse, Jaqueline with [facility] spoke with CAC nurse regarding high blood pressure B: Onset [...] >= 110 Protocols used: Blood Pressure - [id number] [facility] 12-23-2024 Miscellaneous Notes S: Patient and her home care nurse, Jaqueline with [facility] spoke with [facility] nurse regarding high blood pressure B: Onset [...] >= 110 Protocols used: Blood Pressure - [id number]-CT documented in this encounter [facility] 12-23-2024 Telephone encounter Note Called with Ct bx., will scheudle PET [facility] 12-23-2024 Miscellaneous Notes Called with Ct bx., will scheudle PET documented in this encounter [facility] 12-22-2024 Nurse Note Discharge instructions given patient verbalizes understanding. IV discontinued, Bx. Site intact no complications. Patient wheeled out via wheelchair [facility] 12-22-2024 Miscellaneous Notes Discharge instructions given patient [...] continue to assess. documented in this encounter [facility] 12-22-2024 Nurse Note Pt c/o nausea. Leelee rick and crackers provided. [facility] 12-22-2024 Note Pt received from CT biopsy to IR post procedure #5. Pt A/O X 3. Pt denies pain . Bandaid right low back dry and intact. Pt repositioned for comfort. Pt declined food and drink at present. B/P elevated, will continue to assess. [facility] 12-22-2024 Nurse Note Pt received from CT biopsy to IR post procedure #5. Pt A/O X 3. Pt denies pain . Bandaid right low back dry and intact. Pt repositioned for comfort. Pt declined food and drink at present. B/P elevated, will continue to assess. [facility] 12-22-2024 Hospital Discharge instructions Yue Patton RN [...] a call between 8am and 5pm. - [facility] Radiology - [phone] - [facility] Radiology - [phone] - For questions after hours, please call [phone] and ask for the on-call Angiography Radiologist. [...] Care Everywhere.Moderate Sedation in Adults Discharge Instructions (Macanese)documented in this encounter [facility] 12-22-2024 Note [facility] 12-08-2024 History of Present illness Narrative HPI: [...] 162/94 Pulse 72 Ht 1.676 m (5' 5.98") Wt 100 kg (221 lb) SpO2 98% BMI 35.69 kg/m Physical Exam: Physical Exam Vitals and nursing note reviewed. Exam conducted with a kennel attendant present. Constitutional: Appearance: She is obese. She [...] Mood normal. Labs: No components found for: "CBC" No components found for: "CMP" Pathology: : Radiology review; CT scan of [...] evening. BD Insulin Syringe U/F 30G X 1/2" 0.5 ML misc 2 times daily with [...] No current facility-administered medications for this visit. Maintenance Of Way Supervisor was offered to the patient for exam. Patient accepted, biomedical field service engineer in room during exam documented in this encounter [facility] 12-04-2024 Telephone encounter Note S: DMITRIY Parsons with [facility] at Home spoke with [facility] nurse regarding high Bp. B: Onset of [...] for hoarding. States that patient has to "walk crooked" to get through walkways d/t hoarding. Reports a strong smell of urine in the home also. R: Jaqueline states that she will send an email to her liaison to reach out to social worker clinical regarding patient's situation. CAC Rn advised Jaqueline that a message would be sent to the office, she verbalized understanding. No further needs at this time. Reason for Disposition Systolic BP >= 160 OR Diastolic >= 100 Protocols used: Blood Pressure - [id number] [facility] 12-04-2024 Miscellaneous Notes S: DMITRIY Parsons with [facility] spoke with CAC nurse regarding high Bp. B: Onset of [...] for hoarding. States that patient has to "walk crooked" to get through walkways d/t hoarding. Reports a strong smell of urine in the home also. R: Jaqueline states that she will send an email to her liaison to reach out to social worker clinical regarding patient's situation. CAC Rn advised Jaqueline that a message would be sent to the office, she verbalized understanding. No further needs at this time. Reason for Disposition Systolic BP >= 160 OR Diastolic >= 100 Protocols used: Blood Pressure - [id number] documented in this encounter [facility] 11-25-2024 Evaluation + Plan note Associated Problem(s): Type 2 diabetes mellitus with hyperglycemia (HCC) -BGTs have improved, has had a few readings on the lower side frequently in android ui developer, concern for hypoglycemia home-going -11/02 A1C 12.9 -Decrease Lispro to 12U with meals, and Lantus 25 units -Continue metformin ER 500mg daily, patient tolerating well, could consider up- titration in the future -Accuchecks monitor trends -Hypoglycemia protocol in place -Patient to follow-up with Endocrinology [facility] 11-25-2024 Miscellaneous Notes Associated Problem(s): Type 2 diabetes mellitus with hyperglycemia (HCC) -BGTs have improved, has had a few readings on the lower side frequently in android ui developer, concern for hypoglycemia home-going -11/02 A1C 12.9 [...] few days, today with VS HR 49 -/16 TTE shows hyperdynamic LVEF >75% with increased LV wall thickness. -Will decrease metoprolol to 25mg BID, discussed with patient -Continue apixaban 5mg BID -Has hospital follow-up scheduled with [facility] Cardiology on 12/02/2024 with Carli CELAYA at 1000AM, informed of recent medication change. [facility] to follow until cardiology follow-up documented in this encounter [facility] 11-25-2024 Evaluation + Plan note Associated Problem(s): Atrial fibrillation (HCC) -Newly diagnosed while inpatient -Hrs have been high 50s, low 60s over the last few days, today with VS HR 49 -4/16 TTE shows hyperdynamic LVEF >75% with increased LV wall thickness. -Will decrease metoprolol to 25mg BID, discussed with patient -Continue apixaban 5mg BID -Has hospital follow-up scheduled with [facility] Cardiology on 12/02/2024 with Carli CELAYA at 1000AM, informed of recent medication change. HHC to follow until cardiology follow-up [facility] 11-25-2024 History of Present illness Narrative Images from the original note were not included. Group Home Facility (SNF) Follow-up Visit [facility] Dameon Potter : 1955 Visit Date: 11/25/2024 Facility: [facility] CC: Follow-up Note for bradycardia, DMII Assessment and Plan: 1. Persistent atrial fibrillation (HCC) Assessment & Plan: -Newly diagnosed while inpatient -Hrs have been high 50s, low 60s over the last few days, today with VS HR 49 -11/05 TTE shows hyperdynamic LVEF >75% with increased LV wall thickness. -Will decrease metoprolol to 25mg BID, discussed with patient -Continue apixaban 5mg BID -Has hospital follow-up scheduled with [facility] Cardiology on 12/02/2024 with Carli CELAYA at 1000AM, informed of recent medication change. [facility] to follow until cardiology follow-up 2. Type 2 diabetes mellitus with hyperglycemia, with long-term current use of insulin (HCC) Assessment & Plan: -BGTs have improved, has had a few readings on the lower side frequently in android ui developer, concern for hypoglycemia home-going -11/02 A1C 12.9 -Decrease Lispro to 12U with meals, and Lantus 25 units -Continue metformin ER 500mg daily, patient tolerating well, could consider up- titration in the future -Accuchecks monitor trends -Hypoglycemia protocol in place -Patient to follow-up with Endocrinology Follow up: with PCP HPI: The patient is known to me. Admitted to [facility] on 11/05 following hospitalization for hyperglycemia On [...] assured her that I would make her pin drafting machine operator and manager cargo aware of the changes being made today. She is thankful for the information and care throughout her stay at SNF. Spoke with bedside RESOURCE CONSERVATION MANAGER regarding medication changes. She states she has not yet called in patient's medications to the pharmacy, but will make sure she will call in the updated dosages. Will send progress note as FYI of medication changes to PCP, cardiology, and endocrinology. I called and spoke to [facility] liaison regarding medication changes as well to ensure nursing will have updated list and can provide teaching when they open services tomorrow. HistoryReviewed: Past Medical History: Diagnosis Date Anxiety Asthma Atrial fibrillation ([facility]) Deficiency of nutrient elements Depression Dry eye Endometrial cancer ([facility] ([facility]) 09/30/2020 Fatigue Gastritis GERD (gastroesophageal reflux disease) Glaucoma Glaucoma Hyperlipidemia Hypertension Hypothyroid Hypothyroidism Incontinence Intestinal malabsorption Lymph edema Morbid obesity ([facility]) Obstructive sleep apnea PMB (postmenopausal bleeding) Polycystic ovarian syndrome Psoriasis SOB (shortness of breath) on exertion Thyroglossal duct cyst Type 2 diabetes mellitus without complication ([facility]) Urinary tract infection Uterine cancer ([facility]) ([facility]) Vitamin D deficiency 05/10/2017 Zinc deficiency 06/21/2018 [...] daily. BD Insulin Syringe U/F 30G X 1/2" 0.5 ML misc 2 times daily with [...] tenderness. There is no guarding. Comments: LBM 5/6 Musculoskeletal: Right lower leg: Edema present. Left [...] phrases are mis-transcribed.) documented in this encounter [facility] 11-21-2024 Evaluation + Plan note Associated Problem(s): Mixed hyperlipidemia -Continue atorvastatin [facility] 11-21-2024 Miscellaneous Notes Associated Problem(s): Mixed hyperlipidemia [...] 5mg BID -Has hospital follow-up scheduled with [facility] Cardiology on 12/02/2024 with Carli Aldrich APRN-CRISIS COUNSELOR at 1000AM Associated Problem(s): Essential hypertension, benign -Overall controlled currently -Prior to admission on olmesartan, and carvedilol discontinued for now -Continue metoprolol -Has follow-up with [facility] Cardiology on 12/02 as above Associated Problem(s): [...] - Recommend outpatient follow up at the [facility] for formal congitive testing Associated Problem(s): Weight gain - patient has gained 10 lbs since admission - prior to admission PCP notes say she had been losing weight- they were concerned about her high blood sugars and memory loss as contributors - suspect weight gain due to improved PO intake here and lymphedema - will need close follow up at [facility] for memory loss since she's returning home alone and meal prep will continue to be a concern Associated Problem(s): Cellulitis of lower extremity - wound team started Bactrim 11/17-11/24 for bilateral LE cellulitis - both legs were very swollen and weeping per report documented in this encounter [facility] 11-21-2024 Evaluation + Plan note Associated Problem(s): Moderate recurrent major depression (HCC) - stable - continue Celexa 20 units daily [facility] 11-21-2024 Evaluation + Plan note Associated Problem(s): Primary open angle glaucoma of both eyes, mild stage -Continue brimonidine, timolol [facility] 11-21-2024 Evaluation + Plan note Associated Problem(s): Hypothyroidism -11/02 TSH 3.03 -Continue levothyroxine [facility] 11-21-2024 Evaluation + Plan note Associated Problem(s): Type 2 diabetes mellitus with hyperglycemia (HCC) -BGTs have improved, average 150 -11/02 A1C 12.9 -Continue Lispro to 15U with meals -Continue Lantus 28 units, and metformin ER 500mg daily -Accuchecks monitor trends -Hypoglycemia protocol in place [facility] 11-21-2024 Evaluation + Plan note Associated Problem(s): Vitamin D deficiency -11/10 Vitamin D: 26, patient likely not taking supplementation regularly -Continue daily supplement for now- 2000 units daily [facility] 11-21-2024 Evaluation + Plan note Associated Problem(s): Lymphedema of both lower extremities -BLE wrapped at time of exam -Unna boot treatments applied 11/17 -10 lbs weight gained since admission likely 2/2 lymphedema and improved oral intake -In-house wound care following patient while admitted [facility] 11-21-2024 Evaluation + Plan note Associated Problem(s): Endometrial cancer (CMS/HCC) (HCC) - lost to follow up with gyne - will need follow up - reviewed with patient today T [facility] 11-21-2024 Evaluation + Plan note Associated Problem(s): Atrial fibrillation (HCC) -Newly diagnosed while inpatient -Currently rate controlled -11/05 TTE shows hyperdynamic LVEF >75% with increased LV wall thickness. -Started on metoprolol 50mg BID, and apixaban 5mg BID -Has hospital follow-up scheduled with [facility] Cardiology on 12/02/2024 with Carli Aldrich APRN-CRISIS COUNSELOR at 1000AM T [facility] 11-21-2024 Evaluation + Plan note Associated Problem(s): Essential hypertension, benign -Overall controlled currently -Prior to admission on olmesartan, and carvedilol discontinued for now -Continue metoprolol -Has follow-up with [facility] Cardiology on 5/13 as above [facility] 11-21-2024 Evaluation + Plan note Associated Problem(s): [...] closely - follow up with cardiology 12/02/24 [facility] 11-21-2024 Evaluation + Plan note Associated Problem(s): Asthma - has PRN albuterol - hasn't used it since admission [facility] 11-21-2024 Evaluation + Plan note Associated Problem(s): Poor sleep hygiene -continue melatonin 5mg nightly [facility] 11-21-2024 Evaluation + Plan note Associated Problem(s): [...] -Plan for discharge home alone on 11/25/24 [facility] 11-21-2024 Evaluation + Plan note Associated Problem(s): Cognitive decline -BIMS 05/06 - continuing to make improvements with Speech Therapy in area of cognition - Recommend outpatient follow up at the [facility] ([place]) for formal congitive testing [facility] 11-21-2024 Evaluation + Plan note Associated Problem(s): Weight gain - patient has gained 10 lbs since admission - prior to admission PCP notes say she had been losing weight- they were concerned about her high blood sugars and memory loss as contributors - suspect weight gain due to improved PO intake here and lymphedema - will need close follow up at [facility] for memory loss since she's returning home alone and meal prep will continue to be a concern [facility] 11-21-2024 Evaluation + Plan note Associated Problem(s): Cellulitis of lower extremity - wound team started Bactrim 11/17-11/24 for bilateral LE cellulitis - both legs were very swollen and weeping per report [facility] 11-21-2024 History of Present illness Narrative Images from the original note were not included. Group Home Facility (SNF) Discharge Summary [facility] - Geriatric Medicine Dameon Potter : 1955 PCP: Christy Rizzo MD Rehab Physician: Marianne Tang M.D. Rehab CLINICAL DERMATOLOGIST: Araseli Can CNP Visit Date: 11/21/2024 Facility: [place] CODE STATUS: Full Code CC: Skilled Rehabilitation [...] for now -Continue metoprolol -Has follow-up with [facility] Cardiology on 12/02 as above 3. Persistent atrial fibrillation (HCC) Assessment & Plan: -Newly diagnosed while inpatient -Currently rate controlled -11/05 TTE shows hyperdynamic LVEF >75% with increased LV wall thickness. -Started on metoprolol 50mg BID, and apixaban 5mg BID -Has hospital follow-up scheduled with [facility] Cardiology on 12/02/2024 with Carli Aldrich APRN-CRISIS COUNSELOR at 1000AM 4. Type 2 diabetes mellitus with hyperglycemia, with long-term current use of insulin ([facility]) Assessment & Plan: -BGTs have improved, average 150 -11/02 A1C 12.9 -Continue Lispro to 15U with meals -Continue Lantus 28 units, and metformin ER 500mg daily -Accuchecks monitor trends -Hypoglycemia protocol in place 5. Cognitive decline Assessment & Plan: -BIMS 05/06 - continuing to make improvements with Speech Therapy in area of cognition - Recommend outpatient follow up at the [facility] ([facility]) for formal congitive testing 6. Cellulitis of [...] - will need close follow up at [facility] for memory loss since she's returning [...] with cardiology 12/02/24 11. Endometrial cancer (CMS/HCC) (HCC) Assessment & Plan: [...] DMII, HTN, hypothyroidism, HLD, depression admitted to [facility] on 11/01/2024 for hyperglycemia. Patient also found to have new onset atrial fibrillation, metoprolol and apixaban started inpatient. Her urine culture was positive for E.coli was treated with IV ceftriaxone, switched to PO keflex on discharge for 1 more administration to finish a 5 day course. PT/OT recommended SNF on discharge. The patient was then transferred to [place] for skilled rehab on 11/05/2024. 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 Patient [...] History: Diagnosis Date Anxiety Asthma Atrial fibrillation ([facility]) Deficiency of nutrient elements Depression Dry eye Endometrial cancer ([facility]) ([facility]) 09/30/2020 Fatigue Gastritis GERD (gastroesophageal reflux disease) Glaucoma Glaucoma Hyperlipidemia Hypertension Hypothyroid Hypothyroidism Incontinence Intestinal malabsorption Lymph edema Morbid obesity ([facility]) Obstructive sleep apnea PMB (postmenopausal bleeding) Polycystic ovarian syndrome Psoriasis SOB (shortness of breath) on exertion Thyroglossal duct cyst Type 2 diabetes mellitus without complication (HCC) Urinary tract infection Uterine cancer ([facility]) ([facility]) Vitamin D deficiency 05/10/2017 Zinc deficiency 06/21/2018 [...] evening. BD Insulin Syringe U/F 30G X 1/2" 0.5 ML misc 2 times daily with [...] Vitamin D: 26 Home Care Certification Documentation [id number] CERTIFICATION OF HOMEBOUND STATUS: Ms. Potter is homebound due to the following reasons: Require significant assistance of another person to leave home due to weakness caused by debilitation for that reason, any absence from the home requires of her considerable and taxing effort. 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, endocrinology and Gyne-Onc Follow up with [...] above time frame. documented in this encounter [facility] 11-19-2024 Telephone encounter Note Letter mailed to patient [facility] 11-19-2024 Miscellaneous Notes Letter mailed to patient [...] medications she is taking once discharged from [facility] Thanks S: pt calling [facility] with BG problem B: today A: pt has not been seen in office since 03/26/24. Fell in April and has not been taking insulin or checking BG since then, does not remember when the last time was. Pt states she feels "out of it" and "not much energy". Does live alone but has a friend [...] is with them with take them to [facility] ER. Reason for Disposition Blood glucose > 500 mg/dL (27.8 mmol/L) Protocols used: Diabetes - High Blood [place]-OCUUS-HQ documented in this encounter [facility] 11-18-2024 Evaluation + Plan note Associated Problem(s): Lymphedema of both lower extremities -BLE wrapped at time of exam -Unna boot treatments applied yesterday, to remain in place x1 week -6lbs weight gained since admission likely 2/2 lymphedema, will follow trends -Bactrim 800-160 BID x7 day for cellulitis -In-house wound care following patient while admitted [facility] 11-18-2024 Miscellaneous Notes Associated Problem(s): Lymphedema of [...] BGT remain elevated documented in this encounter [facility] 11-18-2024 Evaluation + Plan note Associated Problem(s): Type 2 diabetes mellitus with hyperglycemia (HCC) -BGTs have improved, but still elevated. -11/02 A1C 12.9 -Increase Lispro to 15U with meals -Continue Lantus 28 units, and metformin ER 500mg daily -Accuchecks monitor trends -Hypoglycemia protocol in place -Could consider increase in Lantus if BGT remain elevated [facility] 11-18-2024 History of Present illness Narrative Images from the original note were not included. Group Home Facility (SNF) Follow-up Visit [facility]- Geriatric Medicine Dameon Potter : 1955 Visit Date: 11/18/2024 Facility: [facility] CC: Follow-up Note for lymphedema, weight gain, [...] patient is known to me. Admitted to [place] on 11/05 following hospitalization for hyperglycemia On [...] History: Diagnosis Date Anxiety Asthma Atrial fibrillation ([facility]) Deficiency of nutrient elements Depression Dry eye Endometrial cancer ([facility]) ([facility]) 09/30/2020 Fatigue Gastritis GERD (gastroesophageal reflux disease) Glaucoma Glaucoma Hyperlipidemia Hypertension Hypothyroid Hypothyroidism Incontinence Intestinal malabsorption Lymph edema Morbid obesity ([facility]) Obstructive sleep apnea PMB (postmenopausal bleeding) Polycystic ovarian syndrome Psoriasis SOB (shortness of breath) on exertion Thyroglossal duct cyst Type 2 diabetes mellitus without complication ([facility]) Urinary tract infection Uterine cancer ([facility]) ([facility]) Vitamin D deficiency 05/10/2017 Zinc deficiency 06/21/2018 [...] daily. BD Insulin Syringe U/F 30G X 1/2" 0.5 ML misc 2 times daily with [...] mis Use as instructed 2 times daily 200 [...] phrases are mis-transcribed.) documented in this encounter [facility] 11-13-2024 Telephone encounter Note Second attempt to reach patient no answer/unable to leave voicemail. [facility] 11-12-2024 Evaluation + Plan note Associated Problem(s): Vitamin D deficiency -11/10 Vitamin D: 26, patient likely not taking supplementation regularly -Continue daily supplement for now -Will need extensive education on medications prior to discharge [facility] 11-12-2024 Note -11/10 Vitamin D: 26, patient likely not taking supplementation regularly -Continue daily supplement for now -Will need extensive education on medications prior to discharge [facility] 11-12-2024 Miscellaneous Notes Associated Problem(s): Vitamin D [...] to LLE. Seen today by wound care RESOURCE CONSERVATION MANAGER, awaiting orders from wound CLINICAL DERMATOLOGIST per documentation -BLE follows with wound care center per patient -In-house wound care following patient while admitted documented in this encounter [facility] 11-12-2024 Evaluation + Plan note Associated Problem(s): Type 2 diabetes mellitus with hyperglycemia (HCC) -BGTs remain elevated despite increase to prandial insulin -11/02 A1C 12.9 -Will add metformin ER 500mg daily, if patient tolerates could increase to 1000mg daily -Increase Lispro to 12U with meals -Continue Lantus 28 units -Accuchecks monitor trends -Hypoglycemia protocol in place [facility] 11-12-2024 Evaluation + Plan note Associated Problem(s): Lymphedema of both lower extremities -Swelling noticeable today on exam, especially to LLE. Seen today by wound care RESOURCE CONSERVATION MANAGER, awaiting orders from wound CLINICAL DERMATOLOGIST per documentation -BLE follows with wound care center per patient -In-house wound care following patient while admitted [facility] 11-12-2024 History of Present illness Narrative Images from the original note were not included. Group Home Facility (SNF) Follow-up Visit [facility]- Geriatric Medicine Dameon Potter : 1955 Visit Date: 11/12/2024 Facility: [facility] CC: Follow-up Note for DM2, lymphedema Assessment and Plan: 1. Lymphedema of both lower extremities Assessment & Plan: -Swelling noticeable today on exam, especially to LLE. Seen today by wound care RESOURCE CONSERVATION MANAGER, awaiting orders from wound CLINICAL DERMATOLOGIST per documentation -BLE follows with wound care [...] patient is known to me. Admitted to [place] on 11/05 following hospitalization for hyperglycemia Informed by nursing that mela Pickett, called into facility stating the patient had voiced concerns to her regarding her lymphedema, elevated BGTs and pressure wound to coccyx. On exam patient is sitting in recliner, watching television in no acute distress. She recently finished working with ST. Discussed with patient that I have been monitoring BGTs closely and plan to increase her meal time insulin to 12U. She states, I am not sure that insulin will even do anything, I may as well not take it". Educated patient that she was not administering [...] concerns regarding wound care with wound care RESOURCE CONSERVATION MANAGER as in-house wound team is managing her wounds. Per facility EMR wound care RESOURCE CONSERVATION MANAGER is awaiting orders from CLINICAL DERMATOLOGIST. Call placed to mela Pickett, introduced self [...] daily. BD Insulin Syringe U/F 30G X 1/2" 0.5 ML misc 2 times daily with [...] phrases are mis-transcribed.) documented in this encounter [facility] 11-12-2024 Telephone encounter Note Attempted to reach patient no answer/unable to leave voicemail. [facility] 11-10-2024 Evaluation + Plan note Associated Problem(s): Poor sleep hygiene -Schedule melatonin 5mg nightly [facility] 11-10-2024 Evaluation + Plan note Associated Problem(s): [...] stay -SW to follow for discharge planning [facility] 11-10-2024 Miscellaneous Notes Associated Problem(s): Poor sleep [...] mellitus with hyperglycemia (HCC) -BGTs remain elevated -4/13 A1C 12.9 -Increase Lispro to 10U with meals -Continue Lantus 28 units -Could consider addition of metformin as could help with insulin resistance 2/2 to PCOS -Accuchecks monitor trends -Hypoglycemia protocol in place documented in this encounter [facility] 11-10-2024 Evaluation + Plan note Associated Problem(s): Type 2 diabetes mellitus with hyperglycemia (HCC) -BGTs remain elevated -4/13 A1C 12.9 -Increase Lispro to 10U with meals -Continue Lantus 28 units -Could consider addition of metformin as could help with insulin resistance 2/2 to PCOS -Accuchecks monitor trends -Hypoglycemia protocol in place [facility] 11-10-2024 History of Present illness Narrative Images from the original note were not included. Group Home Facility (SNF) Follow-up Visit [facility]- Geriatric Medicine Dameon Potter : 1955 Visit Date: 11/10/2024 Facility: [facility] CC: Follow-up Note for DMII Assessment and Plan: 1. Type 2 diabetes mellitus with hyperglycemia, with long-term current use of insulin (HCC) Assessment & Plan: -BGTs remain elevated -4/13 A1C 12.9 -Increase Lispro to 10U with [...] patient is known to me. Admitted to [place] on 11/05 following hospitalization for hyperglycemia On exam patient is seen sitting eating lunch, in no acute distress. She reports that she is feel well today, and thought that her therapy session went "okay". Encouragement given to continue with therapy, and even 1% improvement is better than no improvement. She tells me she is worried about falling, especially because of her "new medications". She was unable to recall Eliquis. Did [...] History: Diagnosis Date Anxiety Asthma Atrial fibrillation ([facility]) Deficiency of nutrient elements Depression Dry eye Endometrial cancer ([facility]) ([facility]) 09/30/2020 Fatigue Gastritis GERD (gastroesophageal reflux disease) Glaucoma Glaucoma Hyperlipidemia Hypertension Hypothyroid Hypothyroidism Incontinence Intestinal malabsorption Lymph edema Morbid obesity ([facility]) Obstructive sleep apnea PMB (postmenopausal bleeding) Polycystic ovarian syndrome Psoriasis SOB (shortness of breath) on exertion Thyroglossal duct cyst Type 2 diabetes mellitus without complication ([facility]) Urinary tract infection Uterine cancer ([facility]) ([facility]) Vitamin D deficiency 05/10/2017 Zinc deficiency 06/21/2018 [...] daily. BD Insulin Syringe U/F 30G X 1/2" 0.5 ML misc 2 times daily with [...] mis Use as instructed 2 times daily 200 [...] phrases are mis-transcribed.) documented in this encounter [facility] 11-08-2024 Evaluation + Plan note Associated Problem(s): [...] - Recommend outpatient follow up at the [facility] ([facility]) for formal congitive testing when in typical state of health [facility] 11-08-2024 Evaluation + Plan note Associated Problem(s): Debility - Continue Physical Therapy/ Occupational Therapy with goal to improve function [facility] 11-08-2024 Miscellaneous Notes Associated Problem(s): Cognitive decline [...] - Recommend outpatient follow up at the [facility] ([facility]) for formal congitive testing when in typical state of health Associated Problem(s): Debility - Continue Physical Therapy/ Occupational Therapy with goal to improve function Associated Problem(s): Mixed hyperlipidemia -Continue atorvastatin Associated Problem(s): Moderate recurrent major depression (HCC) - patient very upset about being in group home - will continue to work with her and family to determine best discharge - continue Celexa 20 units daily Associated Problem(s): Hypothyroidism -11/02 TSH 3.03 -Continue levothyroxine Associated Problem(s): Type 2 diabetes mellitus with hyperglycemia (HCC) -BGTs elevated since arrival to [facility] -11/02 A1C 12.9 -Continue Lispro 8U with [...] follow up with gyne - disposition from [facility] not clear yet - will need follow up Associated Problem(s): Primary open angle glaucoma of both eyes, mild stage -Continue brimonidine, timolol Associated Problem(s): Atrial fibrillation (HCC) -Newly diagnosed while inpatient -Currently rate controlled -11/05 TTE shows hyperdynamic LVEF >75% with increased LV wall thickness. -Started on metoprolol 50mg BID, and apixaban 5mg BID -Has hospital follow-up scheduled with [facility] Cardiology on 12/02/2024 with Carli Aldrich APRN-CRISIS COUNSELOR at 1000AM Associated Problem(s): Essential hypertension, benign -Overall controlled currently -Prior to admission on olmesartan, and carvedilol discontinued for now -Continue metoprolol -Has follow-up with [facility] Cardiology on 12/02 as above Associated Problem(s): [...] with cardiology 12/02/24 documented in this encounter [facility] 11-08-2024 Evaluation + Plan note Associated Problem(s): Mixed hyperlipidemia -Continue atorvastatin [facility] 11-08-2024 Evaluation + Plan note Associated Problem(s): Moderate recurrent major depression (HCC) - patient very upset about being in group home - will continue to work with her and family to determine best discharge - continue Celexa 20 units daily [facility] 11-08-2024 Evaluation + Plan note Associated Problem(s): Hypothyroidism -11/02 TSH 3.03 -Continue levothyroxine [facility] 11-08-2024 Evaluation + Plan note Associated Problem(s): Type 2 diabetes mellitus with hyperglycemia (HCC) -BGTs elevated since arrival to [facility] -11/02 A1C 12.9 -Continue Lispro 8U with meals, and increase Lantus from 24 to 28 units -Accuchecks monitor trends -Hypoglycemia protocol in place [facility] 11-08-2024 Evaluation + Plan note Associated Problem(s): Vitamin D deficiency -Check Vitamin D level 11/10 -Continue daily supplement for now T [facility] 11-08-2024 Evaluation + Plan note Associated Problem(s): Lymphedema of both lower extremities - long standing per chart T [facility] 11-08-2024 Evaluation + Plan note Associated Problem(s): Endometrial cancer (CMS/HCC) (HCC) - lost to follow up with gyne - disposition from [facility] not clear yet - will need follow up [facility] 11-08-2024 Evaluation + Plan note Associated Problem(s): Primary open angle glaucoma of both eyes, mild stage -Continue brimonidine, timolol [facility] 11-08-2024 Evaluation + Plan note Associated Problem(s): Atrial fibrillation (HCC) -Newly diagnosed while inpatient -Currently rate controlled -11/05 TTE shows hyperdynamic LVEF >75% with increased LV wall thickness. -Started on metoprolol 50mg BID, and apixaban 5mg BID -Has hospital follow-up scheduled with [facility] Cardiology on 12/02/2024 with Carli Aldrich APRN-CRISIS COUNSELOR at 1000AM [facility] 11-08-2024 Evaluation + Plan note Associated Problem(s): Essential hypertension, benign -Overall controlled currently -Prior to admission on olmesartan, and carvedilol discontinued for now -Continue metoprolol -Has follow-up with [facility] Cardiology on 12/02 as above [facility] 11-08-2024 Evaluation + Plan note Associated Problem(s): [...] closely - follow up with cardiology 12/02/24 [facility] 11-07-2024 Telephone encounter Note At this time [...] is taking once discharged from Skilled Thanks [facility] 11-07-2024 History of Present illness Narrative Images from the original note were not included. Group Home Facility (SNF) Admission History and Physical [facility] Physicians - Geriatric Medicine Dameon Potter : [...] - Recommend outpatient follow up at the [facility] ([facility]) for formal congitive testing when in [...] for now -Continue metoprolol -Has follow-up with [facility] Cardiology on 12/02 as above 7. Persistent atrial fibrillation (HCC) Assessment & Plan: -Newly diagnosed while inpatient -Currently rate controlled -11/05 TTE shows hyperdynamic LVEF >75% with increased LV wall thickness. -Started on metoprolol 50mg BID, and apixaban 5mg BID -Has hospital follow-up scheduled with [facility] Cardiology on 12/02/2024 with Carli Aldrich APRN-CRISIS COUNSELOR at 1000AM 8. Primary open angle glaucoma [...] - patient very upset about being in group home - will continue to work with her and family to determine best discharge - continue Celexa 20 units daily 14. Mixed hyperlipidemia Assessment & Plan: -Continue atorvastatin Follow up: 3-7 days, sooner if problem arises HPI: The patient is new to me but seen by SNF team. Hospital Course: Transferring Hospital: [facility] Admit Date: 11/01/2024 Discharge Date: 11/05/2024 Dameon Potter is a 69 y.o. female admitted for hyperglycemia and new onset A-fib. PMHx of DMII, HTN, hypothyroidism, HLD, depression admitted to [facility] on 11/01/2024 for hyperglycemia. Patient also found to have new onset atrial fibrillation, metoprolol and apixaban started inpatient. Her urine culture was positive for E.coli was treated with IV ceftriaxone, switched to PO keflex on discharge for 1 more administration to finish a 5 day course. PT/OT recommended SNF on discharge. The patient was then transferred to [place] for skilled rehab on 11/05/2024. Interval History: Dameon was very upset when I saw her. Feels like she has been kidnapped and trafficked. Does not understand how she could get admitted here. She is not sure where she is but knows it is in group home. Says she had to drag that out of them. Very tangential. She knew it was Sunday and the week of the . Says she resents being kidnapped. 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 Says she has started therapy and feels she is able to move on her own. Longstanding history of lymphedema. Used to go to [facility] for leg wraps. Started to receive palliative care in the home. Says that she has some long-term care insurance. Is upset with her niece in [place] who decided to send her here. Hospital [...] 3.03 11/02/2024 Lab Results Component Value Date [id number] 1,369 (H) 11/03/2024 Lab Results Component Value Date HGBA1C 12.9 (H) 11/02/2024 No results found for: "INR", PROTIME Imagin11/02/2024 US renal: Mildly increased bilateral renal echotexture; correlate with chronic medical renal disease. Tiny, nonspecific amount of bilateral perinephric free fluid. 11/01/2024 CT head: No acute intracranial abnormality. Diffuse cortical volume loss and chronic small vessel ischemic changes. 11/01/2024 CXR: No radiographic acute cardiopulmonary process. Past Medical History: Diagnosis Date Anxiety Asthma Atrial fibrillation ([facility]) Deficiency of nutrient elements Depression Dry eye Endometrial cancer (CMS/HCC) ([facility]) 09/30/2020 Fatigue Gastritis GERD (gastroesophageal reflux disease) Glaucoma Glaucoma Hyperlipidemia Hypertension Hypothyroid Hypothyroidism Incontinence Intestinal malabsorption Lymph edema Morbid obesity ([facility]) Obstructive sleep apnea PMB (postmenopausal bleeding) Polycystic ovarian syndrome Psoriasis SOB (shortness of breath) on exertion Thyroglossal duct cyst Type 2 diabetes mellitus without complication ([facility]) Urinary tract infection Uterine cancer ([facility]) ([facility]) Vitamin D deficiency 05/10/2017 Zinc deficiency 06/21/2018 [...] daily. BD Insulin Syringe U/F 30G X 1/2" 0.5 ML misc 2 times daily with [...] expose wisdom teeth THYROGLOSSAL DUCT EXCISION 2000 [facility]- Dr. Vin Keating THYROIDECTOMY UMBILICAL HERNIA REPAIR [...] phrases are mis-transcribed.) documented in this encounter [facility] 11-06-2024 Evaluation + Plan note Associated Problem(s): Type 2 diabetes mellitus with hyperglycemia (HCC) -BGTs elevated since arrival to [facility] -11/02 A1C 12.9 -Will add low dose SSI today, likely will need increase in prandial insulin next week -Continue Lispro 8U with meals, and 24U Lantus -Accuchecks monitor trends -Hypoglycemia protocol in place [facility] 11-06-2024 Miscellaneous Notes Associated Problem(s): Type 2 diabetes mellitus with hyperglycemia (HCC) -BGTs elevated since arrival to [facility] -11/02 A1C 12.9 -Will add low dose [...] for now -Continue metoprolol -Has follow-up with [facility] Cardiology on 12/02 as above Associated Problem(s): [...] 5mg BID -Has hospital follow-up scheduled with [facility] Cardiology on 12/02/2024 with Carli CELAYA at [...] - Recommend outpatient follow up at the [facility]) for formal congitive testing when in typical state of health Associated Problem(s): Debility -Current status: assist x1 -Contributing factors: hospitalization, acute illness, new onset afib -Continue PT/OT during SNF stay -SW to follow for discharge planning documented in this encounter [facility] 11-06-2024 Evaluation + Plan note Associated Problem(s): Vitamin D deficiency -Check Vitamin D level 11/07 -Continue daily supplement for now [facility] 11-06-2024 Evaluation + Plan note Associated Problem(s): Hypothyroidism -11/02 TSH 3.03 -Continue levothyroxine [facility] 11-06-2024 Evaluation + Plan note Associated Problem(s): Primary open angle glaucoma of both eyes, mild stage -Continue brimonidine, timolol [facility] 11-06-2024 Evaluation + Plan note Associated Problem(s): Mixed hyperlipidemia -Continue atorvastatin T [facility] 11-06-2024 Evaluation + Plan note Associated Problem(s): Essential hypertension, benign -Overall controlled currently -Prior to admission on olmesartan, and carvedilol discontinued for now -Continue metoprolol -Has follow-up with [facility] Cardiology on 12/02 as above T [facility] 11-06-2024 Evaluation + Plan note Associated Problem(s): [...] pro BNP 6800. -Monitor volume status closely [facility] 11-06-2024 Evaluation + Plan note Associated Problem(s): Atrial fibrillation (HCC) -Newly diagnosed while inpatient -Currently rate controlled high end of normal, HR remains irregular, patient denies shortness of breath or palpitations -11/05 TTE shows hyperdynamic LVEF >75% with increased LV wall thickness. -Started on metoprolol 50mg BID, and apixaban 5mg BID -Has hospital follow-up scheduled with [facility] Cardiology on 12/02/2024 with Carli CELAYA at 1000AM [facility] 11-06-2024 Evaluation + Plan note Associated Problem(s): [...] - Recommend outpatient follow up at the [facility] ([facility]) for formal congitive testing when in typical state of health [facility] 11-06-2024 Evaluation + Plan note Associated Problem(s): Debility -Current status: assist x1 -Contributing factors: hospitalization, acute illness, new onset afib -Continue PT/OT during SNF stay -SW to follow for discharge planning [facility] 11-06-2024 History of Present illness Narrative Images from the original note were not included. Group Home Facility (SNF) Initial CLINICAL DERMATOLOGIST visit [facility] Physicians - Geriatric Medicine Dameon Potter : 1955 Visit Date: 11/06/2024 Facility: [facility] CC: Initial GRU CLINICAL DERMATOLOGIST visit S/P Hospitalization for Hyperglycemia Medication Reconciliation Nursing request CLINICAL DERMATOLOGIST to see patient for debility, hyperglycemia Assessment and Plan: 1. Persistent atrial fibrillation (HCC) Assessment & Plan: -Newly diagnosed while inpatient -Currently rate controlled high end of normal, HR remains irregular, patient denies shortness of breath or palpitations -11/05 TTE shows hyperdynamic LVEF >75% with increased LV wall thickness. -Started on metoprolol 50mg BID, and apixaban 5mg BID -Has hospital follow-up scheduled with [facility] Cardiology on 12/02/2024 with Carli Aldrich APRN-CRISIS COUNSELOR at 1000AM 2. Type 2 diabetes mellitus [...] - Recommend outpatient follow up at the [facility] for formal congitive testing when in [...] for now -Continue metoprolol -Has follow-up with [facility] Cardiology on 12/02 as above 6. Moderate [...] DMII, HTN, hypothyroidism, HLD, depression admitted to [facility] on 11/01/2024 for hyperglycemia. Patient also found to have new onset atrial fibrillation, metoprolol and apixaban started inpatient. Her urine culture was positive for E.coli was treated with IV ceftriaxone, switched to PO keflex on discharge for 1 more administration to finish a 5 day course. PT/OT recommended SNF on discharge. The patient was then transferred to [place] for skilled rehab on 11/05. Interval History: On exam patient is seen sitting on the edge of the bed watching television, in no acute distress. She she tells me that she is feeling well however she is fatigued. She denies orthopnea, shortness of breath, and palpitations. She states "everyone asks me that and my answer is always now". I explained to patient's that because of [...] patient that I would talk with the social sciences professor to assist her with this during her stay at [place]. Hospital Labs: Lab Results Component Value Date [...] 12.9 (H) 11/02/2024 No results found for: "INR", PROTIME Imagin11/02/2024 US renal: Mildly increased bilateral [...] daily. BD Insulin Syringe U/F 30G X 1/2" 0.5 ML misc 2 times daily with [...] expose wisdom teeth THYROGLOSSAL DUCT EXCISION [facility] Dr. Vin Keating THYROIDECTOMY UMBILICAL HERNIA REPAIR [...] phrases are mis-transcribed.) documented in this encounter [facility] 11-05-2024 Telephone encounter Note Admitted to [facility]. Orders reviewed. Will see on Sunday. [facility] 11-05-2024 Miscellaneous Notes Admitted to [facility]. Orders reviewed. Will see on Sunday. documented in this encounter [facility] 11-05-2024 Note [facility] 11-05-2024 Nurse Note Gave report to Day at [place]. [facility] 11-05-2024 Nurse Note Gave report to Day at [place]. Visual monitor removed from room. Pt has [...] alone. Patient exhibits poor hygiene and stated "My leg wraps haven't been changed in months so that means I haven't showered in months because I can't get them wet". Physician made aware of all pertinent clinical information. documented in this encounter [facility] 11-05-2024 Plan of care note Problem: Knowledge [...] Assess Nutritional Intake Outcome: Adequate for Discharge [facility] 11-05-2024 Miscellaneous Notes Problem: Knowledge Deficit Goal: [...] : 1955 All Providers Sent Referral Name: [facility] Phone: [phone] Address: [address] [place] [id number] Name: [facility] Phone: [phone] Address: [address] [place] [address] Name: [facility] Phone: [phone] Address: [address] [place] [address] Name: [facility] Phone: [phone] Address: [address] [place] [address] Social work follow up on SDOH: housing [...] work placed call to Nieves- mela. Reviewed metro scat- she took phone number and will assist the patient in registering. Social work review of direction home referral- Nieves feels patient would benefit from this program- referral made and Nieves made the salesperson sewing machines. [place] updated on referral being made. Patient is set to discharge to [place]. Transport arranged in roundtrip via COT for 3 pm shredder picker with Jose Maria Lainez. Social work did update patient on transport time and possible copay/expense for transport. Social work updated patients niece Nieves via phone on discharge/transport time. Social [facility] and unit. Discharge med list transmitted to SNF - [place] via [facility] per [facility] request. 7000 completed in [facility] per [facility] request. Facility notified via careport. [facility] tasked to send discharge order, MAR and 7000 to [facility]. VM discontinued yesterday at 1pm. [facility] [...] nurse notified. Referral placed to SNF [facility]. [facility] 2. [facility] 3. [facility] 4. [facility] via [facility] per [facility] request. Await review [...] would be able to accept. Pt agreeable. [facility] tasked to send referrals to [facility], [facility], [place] and [facility]. Problem: Potential for Compromised Skin Integrity Goal: [...] met Outcome: Progressing documented in this encounter [facility] 11-05-2024 History of Present illness Narrative Images from the original note were not included. [facility] Geriatric Medicine Inpatient Consult Service Admission [...] - [facility] added to discharge follow [...] (97.5 F) (Temporal) Resp 16 Ht 5' 6" (1.676 m) Wt 218 lb (98.9 kg) SpO2 100% BMI 35.19 kg/m Current Facility-Administered Medications: acetaminophen (Tylenol) tablet 650 mg, 650 mg, Oral, q6h PRN, Leanna Correia MD albuterol 108 (90 Base) MCG/ACT inhaler 2 puff, 2 puff, Inhalation, q6h PRN, Jeremiah Coffman NP apixaban (Eliquis) tablet 5 mg, 5 mg, Oral, BID, Dominga Martinez MD, 5 mg at 11/05/24 0923 atorvastatin (Lipitor) tablet 40 mg, 40 mg, Oral, Daily, Jeremiah LopezvinsKEITH, 40 mg at 11/05/24922 brimonidine (AlphaGAN) 0.2 % ophthalmic solution 1 drop, 1 drop, Both Eyes, TID, Jeremiah CoffmanKEITH, 1 drop at 11/05/24922 cephalexin (Keflex) capsule 500 mg, 500 mg, Oral, BID, Leanna Correia MD, 500 mg at 11/05/24922 dextrose 10 % infusion, 200 mL/hr, IntraVENous, Continuous PRN, Jeremiah Coffman, CLINICAL DERMATOLOGIST dextrose 5 % and sodium chloride 0.45 % infusion, 250 mL/hr, IntraVENous, Continuous PRN, Jeremiah Coffman, CLINICAL DERMATOLOGIST dextrose 5 % infusion, 100 mL/hr, IntraVENous, PRN, Jeremiah Coffman, CLINICAL DERMATOLOGIST dextrose 50 % solution 12.5 g, 12.5 g, IntraVENous, PRN, Jeremaih Tylers, CLINICAL DERMATOLOGIST glucagon (human recombinant) injection 1 mg, 1 mg, IntraMUSCular, PRN, Jeremiah Kolb KEITH Coffman glucose oral gel 15 g, 15 g, Oral, PRN, Jeremiah Lopezvins, CLINICAL DERMATOLOGIST insulin glargine (Lantus) injection 24 Units, 24 Units, SubCUTAneous, Nightly, Rock Esqueda MD, 24 Units at 11/04/242155 Insulin Lispro (Humalog) injection 0-18 Units, 0-18 Units, SubCUTAneous, TID WC, 3 Units at 11/05/24921 AND Insulin Lispro (Humalog) injection 0-18 Units, 0-18 Units, SubCUTAneous, Nightly, Jeremiah Kolb KEITH Coffman, 6 Units at 11/04/242156 Insulin Lispro (Humalog) injection 8 Units, 8 Units, SubCUTAneous, TID WC, Rock Esqueda MD, 8 Units at 11/05/24921 levothyroxine (Synthroid, Levoxyl) tablet 175 mcg, 175 mcg, Oral, qAM AC, Jeremiah Kolb Augustus CLINICAL DERMATOLOGIST, 175 mcg at 11/05/24 05 metoprolol tartrate (Lopressor) tablet 50 mg, 50 mg, Oral, BID, Carli Aldrich, CLINICAL PROGRAMMER - CRISIS COUNSELOR, 50 mg at 11/05/24922 nitroglycerin (Nitrostat) SL tablet 0.4 mg, 0.4 mg, SubLINGual, q5 min PRN, Jeremiah Cortes KEITH Coffman perflutren protein A microsphere (Optison) 3 mL in sodium chloride (PF) 0.9 % 10 mL IV, 0-10 mL, IntraVENous, Once PRN, Dominga Martinez MD polyethylene glycol (PEG) 3350 (Miralax) packet 17 g, 17 g, Oral, Daily PRN, Jeremiah Cortes KEITH Coffman timolol (Timoptic) 0.5 % ophthalmic solution 1 drop, 1 drop, Both Eyes, BID, Jeremiah Kolb KEITH Coffman, 1 drop at 11/05/24 0923 Physical Exam [...] 3.03 11/02/2024 UA: No results found for: "APPEARANCE", "COLORU", "LABSPEC", "LABPH", "URINE", "GLUCOSEU", "UROBILINOGEN", "BILIRUBINUR", "OCBU" === 11/01/24 === CT HEAD WO IV [...] original note were not included. PHYSICAL THERAPY [facility] Treatment Note Name/MRN: Dameon Potter ([id number]) Date of : 1955 Age: 69 y.o. Room/Bed: W4-423/W4-423 A Discharge Recommendation: Group Home Facility Equipment Needed: No Prior Level of [...] Raw Score (No Stairs) : 15 JH-HLM JH-HLM Score: Walked 25 ft or more (i.e. [...] 12/01/24 Therapy Time Individual Co-treatment Time In 0849 Time Out 0916 Minutes 27 Timed Code Treatment Minutes: 27 Minutes (Gait, FA) Mona Petty PTA Cosigned by Ashly Peraza PT at 11/05/2024 11:04 AM EDT Hospitalist Progress Note 11/04/2024 Subjective: Admit Date: 11/01/2024 PCP: Christy Rizzo MD [facility] Interval History: Patient is 69-year-old with [...] (97.1 F) (Temporal) Resp 15 Ht 5' 6" (1.676 m) Wt 218 lb 0.6 oz [...] - Pending the following -placement - Location -[facility] Adult diet Regular; No Added Salt (3-4 [...] 13 LIVER PROFILE: No results for input(s): "AST", "ALT", "BILITOT", "ALKPHOS", "PROT" in the last 72 hours. No lab exists for component: LABALBU PT/INR: No results for input(s): "PROTIME", "INR" in the last 72 hours. CARDIAC ENZYMES: No results for input(s): "TROPONINI" in the last 72 hours. Procalcitonin: No results found for: "PROCAL" Medications: Scheduled apixaban, 5 mg, Oral, BID [...] Relation: Mela Secondary Emergency Contact: Jose Potter Mobile Relation: Sibling Leanna Correia MD Division of Hospitalist Medicine Acute [facility] Images from the original note were not included. [facility] Geriatric Medicine Inpatient Consult Service Admission [...] - Recommend outpatient follow up at the [facility] ([facility]) Follow up: 1-2 days as needed Subjective: [...] (97.3 F) (Temporal) Resp 16 Ht 5' 6" (1.676 m) Wt 218 lb 0.6 oz (98.9 kg) SpO2 97% BMI 35.19 kg/m Current Facility-Administered Medications: albuterol 108 (90 Base) MCG/ACT inhaler 2 puff, 2 puff, Inhalation, q6h PRN, Jeremiah Coffman NP apixaban (Eliquis) tablet 5 mg, 5 mg, Oral, BID, Dominga Martinez MD, 5 mg at 11/04/24 0815 atorvastatin (Lipitor) tablet 40 mg, 40 mg, Oral, Daily, Jeremiah Coffman NP, 40 mg at 11/04/24 0815 brimonidine (AlphaGAN) 0.2 % ophthalmic solution 1 drop, 1 drop, Both Eyes, TID, Jeremiah Coffman NP, 1 drop at 11/04/24 0816 cephalexin (Keflex) capsule 500 mg, 500 mg, Oral, BID, Leanna Correia MD dextrose 10 % infusion, 200 mL/hr, IntraVENous, Continuous PRN, Jeremiah Coffman NP dextrose 5 % and sodium chloride 0.45 % infusion, 250 mL/hr, IntraVENous, Continuous PRN, Jeremiah Coffman NP dextrose 5 % infusion, 100 mL/hr, IntraVENous, PRN, Jermeiah Coffman NP dextrose 50 % solution 12.5 [...] Units, 8 Units, SubCUTAneous, TID WC, Rock sEqueda MD, 8 Units at 11/04/24 1228 levothyroxine (Synthroid, Levoxyl) tablet 175 mcg, 175 mcg, Oral, qAM AC, Jeremiah Coffman NP, 175 mcg at 11/04/24 0557 metoprolol tartrate (Lopressor) tablet 50 mg, 50 mg, Oral, BID, Carli Aldrich, CLINICAL PROGRAMMER - CRISIS COUNSELOR, 50 mg at 11/04/24 0815 nitroglycerin (Nitrostat) [...] allergies, recent labs, several last encounter notes [facility] Cardiology /Electrophysiology Progress Note 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 female with history of aortic stenosis, asthma, GERD, HLD, HTN, hypothyroidism, RADHA, morbid obesity s/p LRYGB in 2018, and uncontrolled DMII. Echo 02/2024-LVEF 68% with moderate LVH and moderate aortic stenosis with mean gradient 25 mmhg. She was admitted to [facility] 11/02 with 3-4 week history of "not feeling well" with reports with fatigue and generalized weakness. [...] -TSH normal. Electrolytes stable yesterday, await [facility] today. Hx of moderate aortic stenosis by [...] alone. Unable to care for self. Received [facility]. Plans for SNF [place]. Goals of care -Pt follows with palliative [...] primary service arrange f/u with patient's outpatient pin drafting machine operator 1-2 wks. [] Recommended; unable to arrange at this time, will arrange post-discharge [x] Arranged as follows: Carli Aldrich, CLINICAL PROGRAMMER - CRISIS COUNSELOR 12/02/24 at 10 AM If there are any questions/concerns, please contact the covering provider. If no answer by Secure Chat, please call the cardiology office to obtain appropriate covering TRANSPORTATION JOB TITLES/physician. Current Medications: apixaban, 5 mg, Oral, BID [...] Daily BD Insulin Syringe U/F 30G X 1/2" 0.5 ML misc 2 times daily with [...] I, CONVENTIONAL SENSITIVITY No results found for: "CKTOTAL", "CKMB", "CKMBINDEX", "TROPONINI" TROPONIN I, HIGH SENSITIVITY Troponin HS Serial [...] PLT 191 169 200 103* Recent Labs 11/01/24 1809 BNP 6,801* No results for input(s): "TRIG", "HDL", "LDLCALC", "CHOL" in the last 72 hours. Lab Results [...] Date: 11/01/2024 PCP: Christy Rizzo MD Room#: W4-423/W4-423 A Interval History: Patient is 69-year-old with [...] (96.8 F) (Temporal) Resp 20 Ht 5' 6" (1.676 m) Wt 214 lb 15.2 oz [...] Pending the following -clinical progress - Location -[facility] Adult diet Regular; No Added Salt (3-4 [...] PROT 7.3 PT/INR: No results for input(s): "PROTIME", "INR" in the last 72 hours. CARDIAC ENZYMES: No results for input(s): "TROPONINI" in the last 72 hours. Procalcitonin: No results found for: "PROCAL" Medications: Scheduled apixaban, 5 mg, Oral, BID [...] Rock Guzmán MD Division of Hospitalist Medicine [facility] Images from the original note were not included. PHYSICAL THERAPY [facility] Initial Evaluation Name/MRN: Dameon Potter ([id number]) Evaluation Date: 11/03/2024 Date of : 1955 Admission Date: 11/01/2024 4:42 PM Age: 69 y.o. Room/Bed: W4-423/W4-423 A Discharge Recommendation: Group Home Facility Equipment Needed: No Assessment IMPRESSION: Patient [...] Deepali WISDOM TOOTH EXTRACTION 2013 [employer] Admission [...] left lower leg, limited to breakdown skin ([facility]) 04/09/2023 Corneal epithelial basement membrane dystrophy 10/03/2022 Asthma without status asthmaticus 07/05/2022 Candidal vulvovaginitis 07/05/2022 Cardiomegaly 07/05/2022 Diabetic retinopathy associated with type 2 diabetes mellitus ([facility]) 07/05/2022 Diastolic dysfunction 07/05/2022 Malignant neoplasm of uterus ([facility]) 07/05/2022 Malnutrition of mild degree (Bianchi: 75% to less than 90% of standard weight) ([facility]) 07/05/2022 Moderate recurrent major depression ([facility]) 07/05/2022 Polycystic ovaries 07/05/2022 Thyroglossal duct cyst 07/05/2022 Type 2 diabetes mellitus with hyperglycemia ([facility]) 07/05/2022 Postmenopausal bleeding 09/03/2020 Dry eye syndrome [...] Raw Score (No Stairs) : 15 JH-HLM JH-HLM Score: Walked 25 ft or more (i.e. [...] of Care supervision is transferred to a [facility] Therapy Services Physical Therapist. Goals and/or treatment plan was established in collaboration with patient/family/other representatives. [facility] and Vascular [facility] Cardiology /Electrophysiology Progress Note HPI / Interval History: Dameon Potter is a 69 y.o. female with history of aortic stenosis, asthma, GERD, HLD, HTN, hypothyroidism, RADHA, morbid obesity s/p LRYGB in 2018, and uncontrolled DMII. Echo 02/2024-LVEF 68% with moderate LVH and moderate aortic stenosis with mean gradient 25 mmhg. She was admitted to [facility] 11/02 with 3-4 week history of "not feeling well" with reports with fatigue and generalized weakness. [...] Daily BD Insulin Syringe U/F 30G X 1/2" 0.5 ML misc 2 times daily with [...] I, CONVENTIONAL SENSITIVITY No results found for: "CKTOTAL", "CKMB", "CKMBINDEX", "TROPONINI" TROPONIN I, HIGH SENSITIVITY Troponin HS Serial [...] 1.43* 1.38* 1.26* 1.03 Recent Labs 11/01/24 18011/02/24 0406 11/03/24 0556 WBC 10.1 9.5 8.8 HGB 14.2 13.6 12.5 12.8 HCT 39.5 36.2 37.8 MCV 84.2 83.6 85.3 PLT 191 169 200 Recent Labs 11/01/24 1809 BNP 6,801* No results for input(s): "TRIG", "HDL", "LDLCALC", "CHOL" in the last 72 hours. Lab Results [...] original note were not included. OCCUPATIONAL THERAPY [facility] Initial Evaluation Name/MRN: Dameon Potter ([id number]) Evaluation Date: 11/03/2024 Date of : 1955 Admission Date: 11/01/2024 4:42 PM Age: 69 y.o. Room/Bed: W4-423/W4-423 A Discharge Recommendation: Group Home Facility Other: continue to assess Assessment IMPRESSION: [...] candidiasis 11/01/2023 Chronic rhinitis 11/01/2023 DM retinopathy ([facility]) 11/01/2023 Diastolic heart failure ([facility]) 11/01/2023 HLD (hyperlipidemia) 11/01/2023 RADHA (obstructive sleep apnea) 11/01/2023 Polycystic ovarian syndrome 11/01/2023 Open-angle glaucoma 11/01/2023 Non-pressure chronic ulcer left lower leg, limited to breakdown skin ([facility]) 04/09/2023 Corneal epithelial basement membrane dystrophy 10/03/2022 Asthma without status asthmaticus 07/05/2022 Candidal vulvovaginitis 07/05/2022 Cardiomegaly 07/05/2022 Diabetic retinopathy associated with type 2 diabetes mellitus ([facility]) 07/05/2022 Diastolic dysfunction 07/05/2022 Malignant neoplasm of uterus ([facility]) 07/05/2022 Malnutrition of mild degree (Bianchi: 75% to less than 90% of standard weight) ([facility]) 07/05/2022 Moderate recurrent major depression ([facility]) 07/05/2022 Polycystic ovaries 07/05/2022 Thyroglossal duct cyst 07/05/2022 Type 2 diabetes mellitus with hyperglycemia ([facility]) 07/05/2022 Postmenopausal bleeding 09/03/2020 Dry eye syndrome [...] index greater than 30 10/01/2020 Endometrial cancer ([facility]) ([facility]) 09/30/2020 Zinc deficiency 06/21/2018 Fatigue 06/20/2018 Deficiency of nutrient elements 02/06/2018 Intestinal malabsorption 02/06/2018 Uncontrolled type 2 diabetes mellitus with hyperglycemia, with long-term current use of insulin ([facility]) 01/31/2018 Morbid obesity (HCC) 01/31/2018 Hepatic steatosis [...] Needs Assist Receives Help From: Friend(s) Active Web Applications Programmer: No Prior Level of Function Prior Level [...] will utilize adaptive techniques to bathe body ID. Start: 11/03/24 Expected End: 12/01/24 Dressing Upper Extremities Patient will complete upper body dressing ID. Start: 11/03/24 Expected End: 12/01/24 Dressings Lower Extremities Patient will dress lower body ID. Start: 11/03/24 Expected End: 12/01/24 Toileting Patient will complete toileting tasks at standard toilet with modified independence. Start: 11/03/24 Expected End: 12/01/24 Therapy Time Individual Co-Treatment Co-Evaluation Time In 46 Time Out 1012 Minutes 26 Timed Code Treatment Minutes: 10 Minutes (self care- 1) Laura Combs OT Patient's Occupational Therapy Plan of Care supervision is transferred to a [facility] Occupational Therapist. Goals and/or treatment plan was established in collaboration with patient/family/other representatives. Images from the original note were not included. OCCUPATIONAL THERAPY [facility] Name/MRN: Dameon Potter ([id number]) Date: 11/03/2024 OT eval and treat order received. Patient chart reviewed. Patient currently starting bedside ECHO. Will continue to follow. Laura Combs OT Images from the original note were not included. [facility] Geriatric Medicine Inpatient Consult Service Admission Date: [...] (97 F) (Temporal) Resp 14 Ht 5' 6" (1.676 m) Wt 236 lb (107 kg) [...] 13 12 LIVER PROFILE: Recent Labs 11/01/24 1809 AST 20 ALT 9 BILITOT 1.3* ALKPHOS 99 PROT 7.3 PT/INR: No results for input(s): "PROTIME", "INR" in the last 72 hours. CARDIAC ENZYMES: No results for input(s): "TROPONINI" in the last 72 hours. Procalcitonin: No results found for: "PROCAL" Medications: Scheduled apixaban, 5 mg, Oral, BID [...] Emergency Contact Information Primary Emergency Contact: Tariq SnowNievesJennifer Mobile Relation: Niece Secondary Emergency Contact: Jose Potter Laura Mobile Relation: [place]ib[place] Guzmán MD Division of Hospitalist Medicine Acute Care [facility] documented in this encounter [facility] 11-05-2024 Note Formatting of this n ote might be different from the original. Patient Choice Patient Name: DAMEON POTTER Date of : 1955 All Providers Sent Referral Name: [facility] Phone: [phone] Address: [address] [place] [address] Name: [facility] Phone: [phone] Address: [facility] [place] [address] Name: [facility] Phone: [phone] Address: [address] [place] [address] Name: [facility] Phone: [phone] Address[address] [address] [place] [address] [facility] 11-05-2024 Note Formatting of this n ote might be different from the original. Patient Choice Patient Name: DAMEON POTTER Date of : 1955 All Providers Sent Referral Name: [facility] Phone: [phone] Address: [address] [place] [address] Name: [facility] Phone: [phone] Address: [facility] [place] [address] Name: [facility] Phone: [phone] Address: [address] [place] [address] Name: [facility] Phone: [phone] Address: [address] [place] [address] [facility] 11-05-2024 Note Formatting of this n ote [...] states yes. Social work placed call to Evangelista james. Reviewed metro scat- she took phone number and will assist the patient in registering. Social work review of direction home referral- Nieves feels patient would benefit from this program- referral made and Nieves made the salesperson sewing machines. [place] updated on referral being made. Patient is set to discharge to [facility]. Transport arranged in roundtrip via COT for 3 pm shredder picker with Jose Maria Lainez. Social work did update patient on transport time and possible copay/expense for transport. Social work updated patients niece Nieves via phone on discharge/transport time. Social work also [facility] RN and unit. [facility] 11-05-2024 Note Formatting of this n ote [...] states yes. Social work placed call to Evangelista james. Reviewed metro scat- she took phone number and will assist the patient in registering. Social work review of direction home referral- Nieves feels patient would benefit from this program- referral made and Nieves made the salesperson sewing machines. [place] updated on referral being made. Patient is set to discharge to [place]. Transport arranged in roundtrip via COT for 3 pm shredder picker with Jose Maria Lainez. Social work did update patient on transport time and possible copay/expense for transport. Social work updated patients nikong [place]ett via phone on discharge/transport time. Social work also updated [facility] bedside RN and unit. [facility] 11-05-2024 Note Formatting of this n ote might be different from the original. Discharge med [facility]. 7000 completed in [place] per TCC request. [facility] 11-05-2024 Note Formatting of this n ote might be different from the original. Discharge med list transmitted [facility]. 7000 completed in [place] per TCC request. [facility] 11-05-2024 Note Formatting of this n ote might be different from the original. FOCUSER tasked to send discharge order, MAR and 7000 to [facility]. [facility] 11-05-2024 Note Formatting of this n ote might be different from the original. FOCUSER tasked to send discharge order, MAR and 7000 to [facility]. [facility] 11-05-2024 Hospital Discharge instructions Rayne Kerr RN - 11/05/2024 10:45 AM EDT Images from the original note were not included. Continuity of Care Form Patient Name: Dameon Potter DOB: 1955 Admit date: 11/01/2024 Discharge date: 11/05/2024 Code Status Order: Full Code Advance Directives: N Admitting Physician: Wilner Kingston MD PCP: Christy Rizzo MD Discharging Nurse: Rayne LAURA Discharging Hospital Unit/Room#: W423/W4423 A Discharging Unit Emergency Contact: Extended Emergency [...] expose wisdom teeth THYROGLOSSAL DUCT EXCISION 2000 [facility]- Dr. Vin Keating THYROIDECTOMY UMBILICAL HERNIA REPAIR [...] seasonal, injectable, preservative free 05/26/2009, 06/07/2010 Novel [id number], preservative-free 06/10/2009 Pfizer SARS-CoV-2 Vaccination 10/19/2020, 11/11/2020, [...] Problems- [facility] Conversion [facility] Hepatic steatosis Calculus of gallbladder with chronic [...] (98.5 F) (Temporal) Resp 14 Ht 5' 6" (1.676 m) Wt 218 lb (98.9 kg) SpO2 99% BMI 35.19 kg/m Last documented pain score (0-10 scale): Last Weight: Wt Readings from Last 1 Encounters: 11/05/24 218 lb (98.9 kg) Mental Status: CHARLEY Patient Mental Status: oriented and alert IV Access: CHARLEY IV Access: None Nursing Mobility/ADLs: Walking Minimal assistance Transfer Minimal assistance Bathing Minimal assistance Dressing Minimal assistance Toileting Minimal assistance Feeding Minimal assistance Clinical Rn Manager Total assistance Med Delivery no Wound Care [...] Status Date: 11/02/24 Discharging to Facility/ Agency [facility] [address] [facility], [place] [address] Cow Tender/Bus Matron signature: ICIAN SECTION Name: Dameon Potter Prognosis: fair Condition at Discharge: stable Rehab Potential (if transferring to Rehab): fair Recommended Labs or Other Treatments After Discharge: follow up with senior health living at discharge, cbc and bmp in 3 days, follow up with cardiology as scheduled The individual is being admitted to a nursing facility directly from an [facility] or a unit of a hospital that is not operated by or licensed by [facility] under section 5119.14 or 5160-3-15.1 5 The individual requires the level of services provided by a nursing facility for the condition for which he or she was treated in the hospital and, Physician Certification: I certify the above information and transfer of Dameon Potter is necessary for the continuing treatment of the diagnosis listed and that she requires long term facility for less than 30 days. Update Admission H&P: No change in H&P PHYSICIAN SIGNATURE: The following attachments cannot be sent through Care Everywhere.Carb Counting for Adults With Diabetes (Macanese)Diabetes and Diet (Macanese)documented in this encounter [facility] 11-05-2024 Note Formatting of this n ote might be different from the original. [facility] discontinued yesterday at 1pm. [facility] updated an asked if they would have a bed. Geriatrics/ cards following. [facility] 11-05-2024 Note Formatting of this n ote might be different from the original. [facility] discontinued yesterday at 1pm. [facility] updated an asked if they would have a bed. Geriatrics/ cards following. [facility] 11-05-2024 Plan of care note Problem: Knowledge [...] Interventions Goal: Assess Nutritional Intake Outcome: Progressing [facility] 11-04-2024 Nurse Note Visual monitor removed from room. Pt has been free of any events today that would require a monitor [facility] 11-04-2024 Note Formatting of this n ote might be different from the original. [facility] able to accept pt. Ramila liaison talked with pt. She will need to be 24hr free of VM. Provider and nurse notified. [facility] 11-04-2024 Note Formatting of this n ote might be different from the original. [facility] able to accept pt. Ramila liaison talked with pt. She will need to be 24hr free of VM. Provider and nurse notified. [facility] 11-04-2024 Note Formatting of this n ote might be different from the original. Referral placed to SNF 1. [facility] 2. [facility] 3. [facility] 4. [facility] per TCC request. Await review and response regarding ability to accept. TCC notified. [facility] 11-04-2024 Note Formatting of this n ote might be different from the original. Referral placed to SNF 1. [facility] 2. [facility] 3. [facility] 4. [facility] per TCC request. Await review and response regarding ability to accept. TCC notified. [facility] 11-04-2024 Note Formatting of this n ote [...] would be able to accept. Pt agreeable. FOCUSER tasked to send referrals to [facility], [facility] [place], [facility] and [facility]. [facility] 11-04-2024 Note Formatting of this n ote [...] would be able to accept. Pt agreeable. FOCUSER tasked to send referrals to [facility], [facility], [facility] and [facility]. [facility] 11-03-2024 Note Problem: Potential f or Compromised Skin Integrity Goal: Nutritional status is improving Outcome: Progressing Problem: Urinary Incontinence Goal: Perineal skin integrity is maintained or improved Outcome: Progressing [facility] 11-03-2024 Plan of care note Problem: Potential for Compromised Skin Integrity Goal: Nutritional status is improving Outcome: Progressing Problem: Urinary Incontinence Goal: Perineal skin integrity is maintained or improved Outcome: Progressing [facility] 11-03-2024 Note Formatting of this n ote [...] I would be back to get choices. [facility] 11-03-2024 Note Formatting of this n ote [...] I would be back to get choices. [facility] 11-03-2024 Consult note Associated Order (s): IP [...] Fluid Accumulation: Mild Extremities (hx severe lymphedema) Composing Room Supervisor Strength: Not Performed Nutrition Assessment: Pt with [...] and mostly lives on prepared meals from [employer] (meals that have meat, veggie, etc and just require to be heated), states she only eats ~1/3 of those meals at a time, for beverages pt used to drink Vitamin Water but states the brand had changed at [facility] to something that she tried to drink [...] through what she could order for lunch ([employer] also came in and obtained future meal [...] On: Kcal/kg Weight Used for Energy Requirements: [place] Weight for Energy Calculation (kg): 59 kg Total Energy Requirements (kcals/day): 6973-6642 kcal/day (25-30 kcal/kg) Weight Used for Protein Requirements: [place] Weight in Kg Used for Protein Requirements: [...] Ordered Anthropometric Measures: Height: 167.6 cm (5' 6") Current Body Weight: 97.5 kg (214 lb 15.2 oz) (11/03 weight per chart; pt in chair at time of RD visit) Admission Body Weight: (varying weights documented so far, initially 236# stated, then 94# (suspect was meant to be kg), then 208#) Usual Body Weight: (last year weights were 255-269#, in Mar 255# was documented) [place] Body Weight (lbs) (Calculated): 130 lbs [place] Body Weight (Kg) (Calculated): 59 kg % [place] Body Weight (Calculated): 165.3 % BMI (kg/m2) [...] Wanda Beckman RD Contact: Secure chat or *[phone] T [facility] 11-03-2024 Consult note Associated Order (s): IP [...] Fluid Accumulation: Mild Extremities (hx severe lymphedema) Composing Room Supervisor Strength: Not Performed Nutrition Assessment: Pt with [...] and mostly lives on prepared meals from [employer] (meals that have meat, veggie, etc and just require to be heated), states she only eats ~1/3 of those meals at a time, for beverages pt used to drink Vitamin Water but states the brand had changed at [employer] to something that she tried to drink [...] through what she could order for lunch ([employer] also came in and obtained future meal [...] On: Kcal/kg Weight Used for Energy Requirements: [place] Weight for Energy Calculation (kg): 59 kg Total Energy Requirements (kcals/day): 8213-2879 kcal/day (25-30 kcal/kg) Weight Used for Protein Requirements: [place] Weight in Kg Used for Protein Requirements: [...] Ordered Anthropometric Measures: Height: 167.6 cm (5' 6") Current Body Weight: 97.5 kg (214 lb 15.2 oz) (11/03 weight per chart; pt in chair at time of RD visit) Admission Body Weight: (varying weights documented so far, initially 236# stated, then 94# (suspect was meant to be kg), then 208#) Usual Body Weight: (last year weights were 255-269#, in Mar 255# was documented) [place] Body Weight (lbs) (Calculated): 130 lbs [place] Body Weight (Kg) (Calculated): 59 kg % [place] Body Weight (Calculated): 165.3 % BMI (kg/m2) [...] Wanda Beckman RD Contact: Secure chat or *[phone] Associated Order(s): IP CONSULT TO GERIATRICS Images from the original note were not included. [facility] Geriatric Medicine Inpatient Consult Service Admission [...] cognitive baseline. - She should follow-up with [facility] as an outpatient. -Appointment information for [facility] included in discharge paperwork. Weight loss -History [...] because she was afraid that she would "bottom out" given her weight loss. - She has [...] know who was in charge of managing "whatever". She substitutes many words with "what ever" Rayzor makes it very difficult to understand what she is referencing as she is talking. She also perseverates on some frustration that seems to be centered around her brother but again she uses the word "whatever" for any specific words that might lend [...] to tell me that her power of employee benefits attorney is her niece, Nieves. States that [...] and week and noticed that she was "off". In the ED, she was "pleasantly confused" but off. Yesterday she said "the boss is here."Nieves states that she knew something was off even before she went into the hospital. Told Nieves that she was losing weight. Admitted to Nieves that she was not taking her insulin like she should because she didn't want to "bottom out" as she was losing weight. Also didn't feel comfortable driving and mentioned it to Nieves. She was planning to reach out to Dr. Case Rizzo's to get more services at home. Had [...] go to a facility. Was looking into [facility] for transportation. Has been using "whatever" when she can't find the word that she wants to say. Nieves has noticed some mild memory changes over the past year. She always writes things down so she doesn't forget. She has done this for a long time. She has had some cognitive decline over the past few weeks and admitted that she was forgetting things. [place] that she was losing a lot of [...] Checklist Total Score: 1 Known to the [facility]? No Allergies Allergen Reactions Bimatoprost Other Blurred [...] .looking some additional services. Healthcare Power of Glove Pairer: Yes. Nieves has copies but the originals are in her house. Alternate POA is her automotive fuel systems converter. Living Will: Yes. Originals are in her [...] (98 F) (Temporal) Resp 16 Ht 5' 6" (1.676 m) Wt 214 lb 15.2 oz [...] clarification. Associated Order(s): IP CONSULT TO CARDIOLOGY [facility] Heart [facility] Vascular [facility] Cardiology/Electrophysiology New Patient Consult Note Reason for Consult/Chief Complaint: New onset atrial fibrillation Consulting MD: Dr. Kingston History of Present Illness: Dameon Potter is a 69 y.o. female admitted to [facility] after presenting to the ED with 3 to 4 weeks of "not feeling well". In the ED she was found to [...] TOOTH EXTRACTION 2013 [facility] Family History Family History Problem [...] grossly intact Laboratory Tests: Recent Labs 11/01/24 18011/01/24 2208 11/02/24 0045 11/02/24 0406 NA 128* 134* 133* 133* K 4.8 3.7 4.1 4.5 CL 95* 102 100 102 CO2 11* 17* 20* 19* BUN 30* 31* 31* 31* CREATININE 1.62* 1.43* 1.38* 1.26* EGFR 34.3* 39.8* 41.5* 46.3* No results for input(s): "CKTOTAL", "CKMB", "CKMBINDEX", "TROPONINI" in the last 72 hours. Recent Labs 11/01/241808 BNP 6,801* Recent Labs 11/01/24 1809 11/02/24 [...] of SERVICE: 11/02/2024 documented in this encounter [facility] 11-03-2024 Consult note Associated Order (s): IP CONSULT TO GERIATRICS Images from the original note were not included. [facility] Geriatric Medicine Inpatient Consult Service Admission [...] cognitive baseline. - She should follow-up with [facility] as an outpatient. -Appointment information for [facility] included in discharge paperwork. Weight loss -History [...] because she was afraid that she would "bottom out" given her weight loss. - She has [...] know who was in charge of managing "whatever". She substitutes many words with "what ever" Sanam makes it very difficult to understand what she is referencing as she is talking. She also perseverates on some frustration that seems to be centered around her brother but again she uses the word "whatever" for any specific words that might lend [...] to tell me that her power of employee benefits attorney is her niece, Nieves. States that [...] and week and noticed that she was "off". In the ED, she was "pleasantly confused" but off. Yesterday she said "the boss is here."Nieves states that she knew something was off even before she went into the hospital. Told Nieves that she was losing weight. Admitted to [facility] that she was not taking her insulin like she should because she didn't want to "bottom out" as she was losing weight. Also didn't [...] go to a facility. Was looking into [facility] for transportation. Has been using "whatever" when she can't find the word that she wants to say. [facility] has noticed some mild memory changes over the past year. She always writes things down so she doesn't forget. She has done this for a long time. She has had some cognitive decline over the past few weeks and admitted that she was forgetting things. [place] that she was losing a lot of [...] Checklist Total Score: 1 Known to the [facility]? No Allergies Allergen Reactions Bimatoprost Other Blurred [...] .looking some additional services. Healthcare Power of Glove Pairer: Yes. Nieves has copies but the originals are in her house. Alternate POA is her automotive fuel systems converter. Living Will: Yes. Originals are in her [...] (98 F) (Temporal) Resp 16 Ht 5' 6" (1.676 m) Wt 214 lb 15.2 oz [...] to contact the dictating provider for clarification. [facility] 11-02-2024 Nurse Note Jennifer Pickett updated on [...] alone. Patient exhibits poor hygiene and stated "My leg wraps haven't been changed in months so that means I haven't showered in months because I can't get them wet". Physician made aware of all pertinent clinical information. [facility] 11-02-2024 Plan of care note Problem: Knowledge [...] My discharge needs are met Outcome: Progressing [facility] 11-02-2024 Consult note Associated Order (s): IP CONSULT TO CARDIOLOGY [facility] Cardiology/Electrophysiology New Patient Consult Note Reason for Consult/Chief Complaint: New onset atrial fibrillation Consulting MD: Dr. Kingston History of Present Illness: Dameon Potter is a 69 y.o. female admitted to [facility] after presenting to the ED with 3 to 4 weeks of "not feeling well". In the ED she was found to [...] TOOTH EXTRACTION 2013 [facility] Family History Family History Problem [...] intact Laboratory Tests: Recent Labs 11/01/24 1809 11/01/248 11/02/24 0045 11/02/24 0406 NA 128* 134* 133* 133* K 4.8 3.7 4.1 4.5 CL 95* 102 100 102 CO2 11* 17* 20* 19* BUN 30* 31* 31* 31* CREATININE 1.62* 1.43* 1.38* 1.26* EGFR 34.3* 39.8* 41.5* 46.3* No results for input(s): "CKTOTAL", "CKMB", "CKMBINDEX", "TROPONINI" in the last 72 hours. Recent Labs 11/01/24 180 BNP 6,801* Recent Labs 11/01/24 1809 11/02/24 [...] Dominga Martinez MD DATE of SERVICE: 11/02/2024 [facility] 11-02-2024 Emergency department Note Patient awake and alert, IV site intact in the right arm infusing heparin at 9.6units/kg/hr and NS at 75ml/hr. Patient's IV in the LAC removed no longer flushing. [facility] 11-02-2024 Emergency department Note Patient awake and [...] Awaiting BMP results for further orders from MD. Provider notified that blood sugar dropped over [...] Dove via secure chat Emergency Department Encounter [facility] EMERGENCY DEPT Patient: Dameon Potter : 1955 Date of Evaluation: 11/01/2024 ED Provider: Oscar Valdes PA-C I saw the patient as the [...] obtain infectious workup along with DKA as dvtrr-[id number] glucose was over 450. Please see subsequent [...] contact the dictating provider for clarification) Oscar Valdes PA-C [employer] Oscar Valdes PA-C 11/01/24 1736 Pt arrived for hyperglycemia, confusion and lightheadedness for past couple of days. documented in this encounter [facility] 11-02-2024 Emergency department Note Pt to ultrasound [facility] 11-02-2024 Emergency department Note Next APTT to be drawn at 1013am. [facility] 11-02-2024 Emergency department Note All meds still being verified by pharmacy [facility] 11-02-[address] Darby has been notified of pt's HR of 130s then will drop to >100 after few seconds via secure chat [facility] 11-02-2024 History and physical note Attending History and Physical Admit Date: 11/01/2024 PCP: Christy Rizzo MD CHIEF COMPLAINT: weakness Reason for Admission: SAÚL, Hyperglycemia, UTI History Obtained From: patient HISTORY OF PRESENT ILLNESS: Dameon is a 69 y.o. female with past medical history below who presents with chief complaint listed above. Patient states that over the last few days she has been feeling "crummy" Patient states she feels like she has [...] Zografakis WISDOM TOOTH EXTRACTION 2012 [facility] Social History: Social History Socioeconomic [...] IntraVENous, Continuous, Jarrett Dove MD, Stopped at 11/01/243 nitroglycerin (Nitrostat) SL tablet 0.4 mg, 0.4 [...] Rfl: BD Insulin Syringe U/F 30G X 1/2" 0.5 ML misc, 2 times daily with [...] Continuous Glucose Sensor (FreeStyle Satya 3 Sensor) [facility], [place] Device every 14 (fourteen) days. (Patient [...] (97 F) (Temporal) Resp 23 Ht 5' 6" (1.676 m) Wt 236 lb (107 kg) [...] PROT 7.3 PT/INR: No results for input(s): "PROTIME", "INR" in the last 72 hours. CARDIAC ENZYMES: No results for input(s): "TROPONINI" in the last 72 hours. Procalcitonin: No results found for: "PROCAL" Urine Culture: Results for orders placed or [...] cfu/ml. COVID-19 PCR: No results for input(s): "COVID19" in the last 72 hours. I reviewed: [...] Primary Emergency Contact: Tariq SnowRoe Mobile Relation: Mela Secondary Emergency Contact: Jose Potter Mobile Relation: Sibling [employer] Dameon Potter : 1955 Primary Care Physician: Christy Rizzo MD The patient and/or family/surrogate voluntarily agreed to participate in ACP services. Patient s cognitive capacity: Alert and Oriented x 3 Code Status: [X] [FULL CODE - Continue all advanced life support: CPR,intubation,invasive procedures] [_] [DNR-CCA - DO NOT do CPR, intubation] [_] [DNR-LOGGING EQUIPMENT OPERATOR - Comfort care only] [_] DNR form [...] chart review was performed. Wilner Kingston MD [employer] Work Phone: 11-02-2024 Note [employer] [facility] 11-02-2024 History and physical note Attending History and Physical Admit Date: 11/01/2024 PCP: Christy Rizzo MD CHIEF COMPLAINT: weakness Reason for Admission: SAÚL, Hyperglycemia, UTI History Obtained From: patient HISTORY OF PRESENT ILLNESS: Dameon is a 69 y.o. female with past medical history below who presents with chief complaint listed above. Patient states that over the last few days she has been feeling "crummy" Patient states she feels like she has [...] Rfl: BD Insulin Syringe U/F 30G X 1/2" 0.5 ML misc, 2 times daily with [...] Continuous Glucose Sensor (FreeStyle Satya 3 Sensor) [facility] Device every 14 (fourteen) days. (Patient [...] (97 F) (Temporal) Resp 23 Ht 5' 6" (1.676 m) Wt 236 lb (107 kg) [...] PROT 7.3 PT/INR: No results for input(s): "PROTIME", "INR" in the last 72 hours. CARDIAC ENZYMES: No results for input(s): "TROPONINI" in the last 72 hours. Procalcitonin: No results found for: "PROCAL" Urine Culture: Results for orders placed or [...] cfu/ml. COVID-19 PCR: No results for input(s): "COVID19" in the last 72 hours. I reviewed: [...] Primary Emergency Contact: Roe Melendrez Mobile Relation: Nikong Secondary Emergency Contact: Jose Potter Mobile Relation: Sibling [employer] Dameon Potter : 1955 Primary Care Physician: Christy Rizzo MD The patient and/or family/surrogate voluntarily agreed to participate in ACP services. Patient s cognitive capacity: Alert and Oriented x 3 Code Status: [X] [FULL CODE - Continue all advanced life support: CPR,intubation,invasive procedures] [_] [DNR-CCA - DO NOT do CPR, intubation] [_] [DNR-LOGGING EQUIPMENT OPERATOR - Comfort care only] [_] DNR form [...] Wilner Kingston MD documented in this encounter [facility] 11-01-2024 Emergency department Note Insulin drip and 0.45% sodium chloride infusions stopped per verbal order from . Awaiting BMP results for further orders from . [facility] 11-01-2024 Emergency department Note Provider notified that blood sugar dropped over 100, per order. Awaiting orders to continue protocol or not. [facility] 11-01-2024 Emergency department Note POCT blood sugar 503 [facility] 11-01-2024 Emergency department Note Pt assisted to toilet with wheelchair, stood well on own. Urine sample obtained. RN noted 2 small pressure injuries to buttock with redness surrounded. Pt states she is incontinent and wears briefs at home. [facility] 11-01-2024 Emergency department Note Lab called with blood glucose 617, same reported to Dr. Vu and Dr. Dove via secure chat T [facility] 11-01-2024 Emergency department Triage note Pt arrived for hyperglycemia, confusion and lightheadedness for past couple of days. [facility] 11-01-2024 Physician Emergency department Note Emergency Department Encounter [facility] EMERGENCY DEPT Patient: Dameon Potter : 1955 Date of Evaluation: 11/01/2024 ED Provider: Oscar Valdes PA-C I saw the patient as the [...] obtain infectious workup along with DKA as glhqh-[id number] glucose was over 450. Please see subsequent [...] contact the dictating provider for clarification) Oscar Valdes PA-C [employer] Oscar Valdes PA-C 11/01/24 5419 HALGI Phone: 11-01-2024 Telephone encounter Note S: pt calling [facility] with BG problem B: today A: pt has not been seen in office since 03/26/24. Fell in April and has not been taking insulin or checking BG since then, does not remember when the last time was. Pt states she feels "out of it" and "not much energy". Does live alone but has a friend [...] is with them with take them to [facility] ER. Reason for Disposition Blood glucose > 500 mg/dL (27.8 mmol/L) Protocols used: Diabetes - High Blood Lrmif-WBRUI-WT [facility] 05-07-2024 History of Present illness Narrative [facility] Nurse Visit Note Dameon [...] in this encounter. documented in this encounter [facility] 05-02-2024 Note Date of Procedure 05/02/2024. Attendant Honor Bar Information Ash Kier Boiler: preston. Start time: 3:51 PM. Stop time: 3:51 PM. Quality Right Eye Borderline. Left Eye Borderline. NFL Interpretation Right Eye Superior loss, Inferior loss. Left Eye Normal. Ganglion Cell Layer Thickness Right Eye Normal. Left Eye Temporal loss. Interval Change Right Eye Stable. Left Eye Stable. [facility] 05-02-2024 Note Date of Procedure 05/02/2024. Attendant Honor Bar Information Ash Kier Boiler: preston. Start time: 3:43 PM. Stop time: 3:51 PM. Interpretation Right Eye Abnormal foveal contour. Findings include Intraretinal fluid. Left Eye Abnormal foveal contour. Findings include Intraretinal fluid. Interval Change Right Eye Worse. Left Eye Stable. [facility] 05-02-2024 Note HNO ID: [id number] Author: MOSES ACEVEDO MD Service: ? Author Type: Physician Type: Progress Notes Filed: 05/02/2024 16:40 Note Text: Primary care physician visit 03/14/2024 reviewed. (H40.6816) Primary open angle glaucoma of both eyes, [...] eyes done today and reviewed in office. (E11.9708) 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 and macular edema, without long-term current use of insulin (HCC) Comment: Discussed retinopathy both eyes with diabetic macular edema both eyes Plan: Continue blood sugar control and monitor with primary care physician. Per Dr. Johnston 11/13/2023: #. Severe NPDR, both eyes - [...] exam. Plan: Monitor Follow up with Dr. Johnston as planned; 6 mos IOP check and [...] Acevedo MD May 02, 2024 4:26 PM [facility] 05-02-2024 History of Present illness Narrative Primary care physician visit 03/14/2024 reviewed. (H40.8381) Primary open angle glaucoma of both eyes, [...] eyes done today and reviewed in office. 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 Per Dr. Johnston 11/13/2023: #. Severe NPDR, both eyes - [...] exam. Plan: Monitor Follow up with Dr. Johnston as planned; 6 mos IOP check and [...] 2024 4:26 PM documented in this encounter [facility] 04-23-2024 History of Present illness Narrative [...] date: Lymph edema No date: Morbid obesity ([facility]) No date: Obstructive sleep apnea No date: PMB (postmenopausal bleeding) No date: Polycystic ovarian syndrome No date: Psoriasis No date: SOB (shortness of breath) on exertion No date: Thyroglossal duct cyst No date: Type 2 diabetes mellitus without complication ([facility]/HCC) ([facility]) No date: Urinary tract infection No date: Uterine cancer ([facility]) ([facility]) 05/10/2017: Vitamin D deficiency 06/21/2018: Zinc deficiency Current Outpatient Medications on File Prior to Encounter: albuterol 108 (90 Base) MCG/ACT inhaler, Inhale 2 puffs every 6 hours as needed., Disp: , Rfl: atorvastatin (Lipitor) 40 MG tablet, Take by mouth daily., Disp: , Rfl: BD Insulin Syringe U/F 30G X 1/2" 0.5 ML misc, 2 times daily with [...] Continuous Glucose Sensor (FreeStyle Satya 3 Sensor) [facility] Device every 14 (fourteen) days. (Patient [...] pen needle 32G x 4 mm [facility], Use as instructed 2 times daily, Disp: [...] F) (Infrared) Resp 18 Wound : see [place] [facility] IMPRESSION:Lymphedema (primary encounter diagnosis) Plan: Plan for wound - Treatment: see orders Discussed appropriate home care of this wound. Wound redressed. Patient instructions were given. Follow up: as per protocol documented in this encounter [facility] 04-23-2024 Hospital Discharge instructions Zayda Bradford RN - 04/23/2024 11:00 AM EDT Nurse visit in [address] Predomo in 4 weeks Triamcinolone to areas right [...] the wound center. documented in this encounter [facility] 04-09-2024 History of Present illness Narrative [facility] Nurse Visit Note Dameon [...] in this encounter. documented in this encounter [facility] 03-26-2024 History of Present illness Narrative Images from the original note were not included. [facility] ENDOCRINOLOGY [address] [place] [id number] Dept: [phone] Dept Loc: [phone] Visit type: Established patient Reason for Visit: Diabetes Mellitus, Hyperglycemia, and Follow-up Assessment and Plan 1. Type 2 diabetes mellitus with hyperglycemia, with long-term current use of insulin (HCC) 2. Primary hypertension 3. Hyperlipidemia associated with type 2 diabetes mellitus (HCC) (HCC) 4. Class 3 severe obesity due to excess calories with serious comorbidity and body mass index (BMI) of 40.0 to 44.9 in adult (HCC) 5. Acquired hypothyroidism 6. Insulin resistance A1C [...] use of insulin -controlled- continue to follow [facility] Dr Ott will request most recent [...] Christy Rizzo MD Referring is PCP Previous Business Development Professional: Dr. Alcantara Initial [facility] endocrinology office visit: 04/06/2021 Last office visit: 11/02/2023 Gastric bypass 2018 DM Onset: 2001 Type of DM: 2 Complications: Cardiovascular -- [...] daily. BD Insulin Syringe U/F 30G X 1/2" 0.5 ML misc 2 times daily with [...] Continuous Glucose Sensor (FreeStyle Satya 3 Sensor) mis 1 Device every 14 (fourteen) days. (Patient [...] Objective BP 132/84 Pulse 66 Ht 5' 6" (1.676 m) Wt 255 lb 4.8 oz [...] and Summarized Labs: No components found for: "LABA1C" No components found for: "EAG" Lab Results Component Value Date NA 135 [...] CHOLHDLRATIO 4 04/06/2021 No results found for: "[id number]" Imaging/Testing: AMAURY Higgins CNP Portions of the information within this encounter were entered using an electronic dictation system. Best attempts were made to edit/proofread the information prior to note completion. Despite the review of information, some errors may remain. If there are questions related to the information contained within the note please contact the signing physician directly. documented in this encounter [facility] 03-26-2024 History of Present illness Narrative INITIAL [...] w/ Lap Aggie and Umbilical Hernia repair, Tiffanyafrony No date: GASTRIC BYPASS 09/30/2020: HYSTERECTOMY Comment: [...] date: Lymph edema No date: Morbid obesity ([facility]) No date: Obstructive sleep apnea No date: PMB (postmenopausal bleeding) No date: Polycystic ovarian syndrome No date: Psoriasis No date: SOB (shortness of breath) on exertion No date: Thyroglossal duct cyst No date: Type 2 diabetes mellitus without complication ([facility]/HCC) ([facility]) No date: Urinary tract infection No date: Uterine cancer ([facility]) ([facility]) 05/10/2017: Vitamin D deficiency 06/21/2018: Zinc deficiency Current Outpatient Medications on File Prior to Encounter: albuterol 108 (90 Base) MCG/ACT inhaler, Inhale 2 puffs every 6 hours as needed., Disp: , Rfl: atorvastatin (Lipitor) 40 MG tablet, Take by mouth daily., Disp: , Rfl: BD Insulin Syringe U/F 30G X 1/2" 0.5 ML misc, 2 times daily with [...] Continuous Glucose Sensor (FreeStyle Satya 3 Sensor) [facility], 1 Device every 14 (fourteen) days., Disp: [...] insulin pen needle 32G x [facility], Use as instructed 2 times daily, Disp: [...] Once, Jeromeniurka Perdomo MD Allergies as of 02/27/2024 - [...] CNP 12:02 PM documented in this encounter [facility] 03-26-2024 Hospital Discharge instructions Zayda Bradford RN [...] the wound center. documented in this encounter [facility] 03-18-2024 Telephone encounter Note Scheduled on 03/26 at 3pm - [place] [facility] 03-18-2024 Miscellaneous Notes Scheduled on 03/26 at 3pm - [place] Name of caller: Dameon Contact phone number: [phone] Relationship to Patient: patient Provider: SAMUEL Cruz Practice: [facility] Endocrinology Chief Complaint/Reason for Call: Pt states she needs to reschedule her appointment that she had to cancel for 03/19. Pt states she prefers late afternoon appointments. Please review. Best time of day caller can be reached: any Patient advised that office/PCP has 24-48 business hours to return their call: Yes documented in this encounter [facility] 03-17-2024 Telephone encounter Note Name of caller: Dameon Contact phone number: [phone] Relationship to Patient: patient Provider: SAMUEL Cruz Practice: [facility] Endocrinology Chief Complaint/Reason for Call: Pt states she needs to reschedule her appointment that she had to cancel for 03/19. Pt states she prefers late afternoon appointments. Please review. Best time of day caller can be reached: any Patient advised that office/PCP has 24-48 business hours to return their call: Yes [facility] 03-12-2024 History of Present illness Narrative [facility] Nurse Visit Note Dameon [...] in this encounter. documented in this encounter [facility] 03-04-2024 History of Present illness Narrative @[email or web address]@ [...] dysuria. Has chronic urinary incontinence. Declined Uro site head, will let us know in the future. [...] every 6 months. Follow-up in 6 months Sureswab vaginal cytology done will call with results and follow-up accordingly Continue with follow ups with PCP regarding occasional UTIs and yeast infections, HTN. The patient had an opportunity to ask questions, all of which were answered to the best of my ability. She is in agreement with the above noted plan. documented in this encounter [facility] 02-27-2024 History of Present illness Narrative INITIAL [...] to less than 90% of standard weight) ([facility]) Moderate recurrent major depression (HCC) Nuclear sclerotic [...] w/ Lap Aggie and Umbilical Hernia repair, Johnafrony No date: GASTRIC BYPASS 09/30/2020: HYSTERECTOMY Comment: TLH/BSO; Dr. Cuauhtemoc Stubbs : MOUTH SURGERY Comment: gum removal to expose wisdom teeth 2000: THYROGLOSSAL DUCT EXCISION Comment: Cookie Keating No date: THYROIDECTOMY 01/29/2018: UMBILICAL HERNIA REPAIR Comment: w/ LRYGB and Lap Aggie - Deepali 03/20/2017: UPPER GASTROINTESTINAL ENDOSCOPY Comment: pre op, [...] date: Lymph edema No date: Morbid obesity ([facility]) No date: Obstructive sleep apnea No date: PMB (postmenopausal bleeding) No date: Polycystic ovarian syndrome No date: Psoriasis No date: SOB (shortness of breath) on exertion No date: Thyroglossal duct cyst No date: Type 2 diabetes mellitus without complication ([facility]) ([facility]) No date: Urinary tract infection No date: Uterine cancer ([facility]) ([facility]) 05/10/2017: Vitamin D deficiency 06/21/2018: Zinc deficiency Current Outpatient Medications on File Prior to Encounter: albuterol 108 (90 Base) MCG/ACT inhaler, Inhale 2 puffs every 6 hours as needed., Disp: , Rfl: atorvastatin (Lipitor) 40 MG tablet, Take by mouth daily., Disp: , Rfl: BD Insulin Syringe U/F 30G X 1/2" 0.5 ML misc, 2 times daily with [...] Continuous Glucose Sensor (FreeStyle Satya 3 Sensor) [facility], 1 Device every 14 (fourteen) days., Disp: [...] insulin pen needle 32G x 4 mm [facility], Use as instructed 2 times daily, Disp: [...] 0.1 % cream, , Topical, Once, Jerome Perodmo MD Allergies as of 02/27/2024 - Reviewed [...] F) (Infrared) Resp 18 Wound : see [place] IMPRESSION:Lymphedema (primary encounter diagnosis) Plan: Plan for wound - Treatment: see orders Discussed appropriate home care of this wound. Wound redressed. Patient instructions were given. Follow up: as per protocol documented in this encounter [facility] 02-27-2024 Hospital Discharge instructions Zayda Bradford RN [...] the wound center. documented in this encounter [facility] 02-27-2024 Miscellaneous Notes Encounter addended by: Piter Valdez MA on: 02/27/2024 2:30 PM Actions taken: Follow-up modified documented in this encounter [facility] 02-27-2024 Note Encounter addended b y: Piter Valdez MA on: 02/27/2024 2:30 PM Actions taken: Follow-up modified [facility] 02-27-2024 Note Encounter addended b y: Piter Valdez MA on: 02/27/2024 2:30 PM Actions taken: Follow-up modified [facility] 02-27-2024 Note Encounter addended b y: Piter Valdez MA on: 02/27/2024 2:30 PM Actions taken: Follow-up modified [facility] 02-13-2024 History of Present illness Narrative [facility] Nurse Visit Note Dameon [...] in this encounter. documented in this encounter [facility] 01-30-2024 History of Present illness Narrative INITIAL [...] date: Type 2 diabetes mellitus without complication ([facility] [facility] ([facility]) No date: Urinary tract infection No date: Uterine cancer ([facility] ([facility]) 05/10/2017: Vitamin D deficiency 06/21/2018: Zinc deficiency Current Outpatient Medications on File Prior to Encounter: albuterol 108 (90 Base) MCG/ACT inhaler, Inhale 2 puffs every 6 hours as needed., Disp: , Rfl: atorvastatin (Lipitor) 40 MG tablet, Take by mouth daily., Disp: , Rfl: BD Insulin Syringe U/F 30G X 1/2" 0.5 ML misc, 2 times daily with [...] Continuous Glucose Sensor (FreeStyle Satya 3 Sensor) [facility] Device every 14 (fourteen) days., Disp: [...] Once, Jeromeniurka Perdomo MD Allergies as of 01/30/2024 - [...] C (98.4 F) Resp 18 Wound See [place] IMPRESSION:Lymphedema of both lower extremities (primary encounter diagnosis) Plan: Plan for wound - Treatment: see orders Discussed appropriate home care of this wound. Wound redressed. Patient instructions were given. Follow up: per protocol documented in this encounter [facility] 01-30-2024 Hospital Discharge instructions Zayda Bradford RN [...] the wound center. documented in this encounter [facility] 01-17-2024 Telephone encounter Note Pt home nurse [...] questions or concerns she can be reached [phone]. [facility] 01-17-2024 Miscellaneous Notes Pt home nurse called. [...] questions or concerns she can be reached [phone]. documented in this encounter [facility] 01-16-2024 History of Present illness Narrative [facility] Wound [facility] Nurse Visit Note Dameon Potter AGE: [...] in this encounter. documented in this encounter [facility] 01-16-2024 History of Present illness Narrative [facility] Wound [facility] Nurse Visit Note Dameon Potter AGE: [...] in this encounter. documented in this encounter [facility] 01-16-2024 Miscellaneous Notes Encounter addended by: Mackenzie Avitia RN on: 01/18/2024 2:53 PM Actions taken: Episode edited, Charge Capture section accepted documented in this encounter [facility] 01-16-2024 Note Encounter addended b y: Mackenzie Avitia RN on: 01/18/2024 2:53 PM Actions taken: Episode edited, Charge Capture section accepted [facility] 2024 History of Present illness Narrative INITIAL [...] w/ Lap Aggie and Umbilical Hernia repair, Tiffanykyree No date: GASTRIC BYPASS 09/30/2020: HYSTERECTOMY Comment: [...] date: Lymph edema No date: Morbid obesity ([facility]) No date: Obstructive sleep apnea No date: PMB (postmenopausal bleeding) No date: Polycystic ovarian syndrome No date: Psoriasis No date: SOB (shortness of breath) on exertion No date: Thyroglossal duct cyst No date: Type 2 diabetes mellitus without complication ([facility] ([facility]) No date: Urinary tract infection No date: Uterine cancer ([facility] ([facility]) 05/10/2017: Vitamin D deficiency 06/21/2018: Zinc deficiency Current Outpatient Medications on File Prior to Encounter: albuterol 108 (90 Base) MCG/ACT inhaler, Inhale 2 puffs every 6 hours as needed., Disp: , Rfl: atorvastatin (Lipitor) 40 MG tablet, Take by mouth daily., Disp: , Rfl: BD Insulin Syringe U/F 30G X 1/2" 0.5 ML misc, 2 times daily with [...] Continuous Glucose Sensor (FreeStyle Satya 3 Sensor) [facility] [place] Device every 14 (fourteen) days., Disp: [...] F) (Infrared) Resp 18 Wound : see [place] IMPRESSION:Lymphedema (primary encounter diagnosis) Plan: Plan for wound - Treatment: see orders Discussed appropriate home care of this wound. Wound redressed. Patient instructions were given. Follow up: per protocol documented in this encounter [facility] 2024 Hospital Discharge instructions Zayda Bradford RN [...] the wound center. documented in this encounter [facility] 12-31-2023 Telephone encounter Note Called patient niece due to being unable to get a hold of the patient. Patient's niece is her power of employee benefits attorney. I did explain that her CT scan looks good radiology informed me that no further biopsy or treatment needs done. Verbalizes understanding. Encouraged to call back with any questions or concerns [facility] 12-31-2023 Miscellaneous Notes Called patient niece due to being unable to get a hold of the patient. Patient's niece is her power of employee benefits attorney. I did explain that her CT scan looks good radiology informed me that no further biopsy or treatment needs done. Verbalizes understanding. Encouraged to call back with any questions or concerns documented in this encounter [facility] 12-31-2023 Telephone encounter Note Called patient and attempted to leave a message but her memory box was full. I did speak with radiologist and he did not recommend doing a biopsy on the and inguinal node. I will try and call back. [facility] 12-31-2023 Miscellaneous Notes Called patient and attempted to leave a message but her memory box was full. I did speak with radiologist and he did not recommend doing a biopsy on the and inguinal node. I will try and call back. documented in this encounter [facility] 12-20-2023 History of Present illness Narrative [facility] Nurse Visit Note Dameon Potter AGE: 68 [...] in this encounter. documented in this encounter [facility] 12-19-2023 Telephone encounter Note Pt aware of CT results, aware we are waiting on radiologist to compare both sides of inguinal region to see if she may need US to further assess. Pt verbalized understanding, no further questions. [facility] 12-19-2023 Telephone encounter Note ----- Message from [...] you thought. Thank you, Jaqueline Grayson APRN [facility] 12-19-2023 Miscellaneous Notes Pt aware of CT [...] Jaqueline Grayson APRN documented in this encounter [facility] 12-05-2023 History of Present illness Narrative INITIAL [...] Type 2 diabetes mellitus without complication (CMS/HCC) ([facility]) No date: Urinary tract infection No date: Uterine cancer (CMS/HCC) ([facility]) 05/10/2017: Vitamin D deficiency 06/21/2018: Zinc deficiency Current Outpatient Medications on File Prior to Encounter: albuterol 108 (90 Base) MCG/ACT inhaler, Inhale 2 puffs every 6 hours as needed., Disp: , Rfl: atorvastatin (Lipitor) 40 MG tablet, Take by mouth daily., Disp: , Rfl: BD Insulin Syringe U/F 30G X 1/2" 0.5 ML misc, 2 times daily with [...] Continuous Glucose Sensor (FreeStyle Satya 3 Sensor) [facility] [place] Device every 14 (fourteen) days., Disp: [...] 175/74 Pulse 64 Resp 18 Wound See [place] IMPRESSION:Lymphedema (primary encounter diagnosis) Plan: Plan for wound - Treatment: see orders Discussed appropriate home care of this wound. Wound redressed. Patient instructions were given. Follow up: as per protocol documented in this encounter [facility] 12-05-2023 Hospital Discharge instructions Zayda Bradford RN [...] the wound center. documented in this encounter [facility] 11-21-2023 History of Present illness Narrative [facility] Care [facility] Nurse Visit Note Dameon [...] in this encounter. documented in this encounter [facility] 11-21-2023 Hospital Discharge instructions Moses Jensentingham - 11/21/2023 3:15 PM EDT Nurse visit [...] the wound center. documented in this encounter [facility] 11-15-2023 Telephone encounter Note Tried to call patient to let her know about imaging appointment. Unable to leave message, Mailbox is full. [facility] 11-15-2023 Miscellaneous Notes Tried to call patient to let her know about imaging appointment. Unable to leave message, Mailbox is full. documented in this encounter [facility] 11-13-2023 Note Date of Procedure 11/13/2023. Attendant Honor Bar Information Ash Kier Boiler: Clementine. Start time: 1:43 PM. Stop time: 1:43 PM. Notes Obtained for future comparison [facility] 11-13-2023 Note Date of Procedure 11/13/2023. Attendant Honor Bar Information Ash Kier Boiler: KAM. Start time: 1:12 PM. Stop time: 1:16 PM. Interpretation Right Eye Findings include Intraretinal fluid; Comments: (Extrafoveal IRF). Left Eye Findings include Intraretinal fluid; Comments: (Extrafoveal IRF). Interval Change Right Eye Stable. Left Eye Stable. [facility] 11-13-2023 Note HNO ID: [id number] Author: MASON JOHNSTON MD Service: ? Author Type: Physician Type: [...] with all of its relevant components. Mason Johnston MD, PhD Vitreoretinal Surgery AND Ocular Inflammatory Diseases [facility] 11-13-2023 History of Present illness Narrative HPI: [...] with all of its relevant components. Mason Johnston MD, PhD Vitreoretinal Surgery & Ocular Inflammatory Diseases [facility] documented in this encounter [facility] 11-07-2023 History of Present illness Narrative [...] Type 2 diabetes mellitus without complication (CMS/HCC) ([facility]) No date: Urinary tract infection No date: Uterine cancer (CMS/HCC) ([facility]) 05/10/2017: Vitamin D deficiency 06/21/2018: Zinc deficiency Current Outpatient Medications on File Prior to Encounter: albuterol 108 (90 Base) MCG/ACT inhaler, Inhale 2 puffs every 6 hours as needed., Disp: , Rfl: atorvastatin (Lipitor) 40 MG tablet, Take by mouth daily., Disp: , Rfl: BD Insulin Syringe U/F 30G X 1/2" 0.5 ML misc, 2 times daily with [...] Continuous Glucose Sensor (FreeStyle Satya 3 Sensor) [facility] 1 Device every 14 (fourteen) days., Disp: [...] Once, Jeromeniurka Perdomo MD Allergies as of 11/07/2023 - [...] F) (Infrared) Resp 18 Wound : see [place] IMPRESSION:Lymphedema (primary encounter diagnosis) Plan: Plan for wound - Treatment: see orders Discussed appropriate home care of this wound. Wound redressed. Patient instructions were given. Follow up: as per protocol. documented in this encounter [facility] 11-07-2023 Hospital Discharge instructions Zayda Bradford RN [...] the wound center. documented in this encounter [facility] 11-05-2023 Telephone encounter Note Tried to call patient to inform her of ct appointment (12/04/23 @ 1030) at location. Unable to leave message. Mailbox is full. [facility] 11-05-2023 Miscellaneous Notes Tried to call patient to inform her of ct appointment (12/04/23 @ 1030) at location. Unable to leave message. Mailbox is full. documented in this encounter [facility] 11-02-2023 History of Present illness Narrative Images from the original note were not included. [facility] END[facility] [address] [place] [id number] Dept: [phone] Dept Loc: [phone] Visit type: Established patient Reason for Visit: Diabetes Mellitus, Hyperglycemia, and Follow-up Assessment and Plan 1. Type 2 diabetes mellitus with hyperglycemia, with long-term current use of insulin ([facility]) - AMB POC HEMOGLOBIN A1C 2. Primary hypertension 3. Hyperlipidemia associated with type 2 diabetes mellitus (HCC) ([facility]) 4. Class 3 severe obesity due to excess calories with serious comorbidity and body mass index (BMI) of 45.0 to 49.9 in adult ([facility]) 5. Acquired hypothyroidism 6. Insulin resistance 7. 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 and macular edema, with long-term current use of insulin ([facility]) A1C is Lab Results Component Value Date HGBA1C 10.8 (A) 11/02/2023 PATIENT IS TO NOT TAKE U500 INSULIN Patient will make the following changes to their antihyperglycemic regimen: Discontinue U500 insulin Cotinue lantus 16 units daily Continue humalog 16 units with dinner Encourage to send in download in 2 weeks for mello as may be needed aftwer her U500 [...] use of insulin -controlled- continue to follow [facility] Dr Acevedo Continue to work on [...] Christy Rizzo MD Referring is PCP Previous Business Development Professional: Dr. Alcantara [facility] office visit: 04/06/2021 Last office visit: [...] daily. BD Insulin Syringe U/F 30G X 1/2" 0.5 ML misc 2 times daily with [...] expose wisdom teeth THYROGLOSSAL DUCT EXCISION 2000 [facility]- Dr. Vin Keating THYROIDECTOMY UMBILICAL HERNIA REPAIR [...] Cuff Size: Adult) Pulse 74 Ht 5' 6" (1.676 m) Wt 269 lb 6.4 oz [...] and Summarized Labs: No components found for: "LABA1C" No components found for: "EAG" Lab Results Component Value Date NA 135 [...] LDLCALC 68 07/03/2019 No results found for: "VLDL" Lab Results Component Value Date CHOLHDLRATIO 3.0 06/22/2021 CHOLHDLRATIO 4 04/06/2021 CHOLHDLRATIO 3 03/04/2020 No results found for: "[id number]" Imaging/Testing: Lyric Cruz APRN - SAMUEL Portions of the information within this encounter were entered using an electronic dictation system. Best attempts were made to edit/proofread the information prior to note completion. Despite the review of information, some errors may remain. If there are questions related to the information contained within the note please contact the signing physician directly. documented in this encounter [facility] 11-02-2023 Instructions AMAURY Knight CNP - 11/02/2023 3:30 PM EDT Mookie serna - channel manager DO NOT USE u500 insulin documented in this encounter [facility] 11-01-2023 History of Present illness Narrative Images [...] dysuria. Has chronic urinary incontinence. Declined Uro site head, will let us know in the future. [...] above noted plan. documented in this encounter [facility] 10-26-2023 Note HNO ID: [id number] Author: MOSES ACEVEDO MD Service: ? Author Type: Physician Type: Progress Notes Filed: 10/26/2023 15:12 Note Text: (H42.8853) Primary open angle glaucoma of both eyes, [...] Consider preservative free Artificial tears. Previous History: (E11.8313) 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 and macular edema, without long-term current use of insulin (HCC) Comment: Discussed retinopathy both eyes with diabetic macular edema both eyes, not clinically significant left eye. Plan: Continue blood sugar control and monitor with primary care physician. Recommend baseline Retina consult. Per Dr. Johnston 05/15/2023: #. Severe NPDR, both eyes - [...] Acevedo MD October 26, 2023 3:03 PM [facility] 10-26-2023 History of Present illness Narrative (H40.7421) Primary open angle glaucoma of both eyes, [...] Consider preservative free Artificial tears. Previous History: (E11.4123) 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 and macular edema, without long-term current use of insulin (HCC) Comment: Discussed retinopathy both eyes with diabetic macular edema both eyes, not clinically significant left eye. Plan: Continue blood sugar control and monitor with primary care physician. Recommend baseline Retina consult. Per Dr. Johnston 05/15/2023: #. Severe NPDR, both eyes - [...] 2023 3:03 PM documented in this encounter [facility] 10-24-2023 Hospital Discharge instructions Moses Oliveira [...] the wound center. documented in this encounter [facility] 10-10-2023 History of Present illness Narrative [facility] Wound Care Center Nurse Visit Note Dameon [...] in this encounter. documented in this encounter [facility] 10-01-2023 Telephone encounter Note RX REFILL REQUEST [...] OF LAST REFILL: 05/09/23 PHARMACY REQUESTED: [facility] 10-01-2023 Miscellaneous Notes RX REFILL REQUEST NAME [...] PHARMACY REQUESTED: [facility] documented in this encounter [facility] 09-26-2023 History of Present illness Narrative INITIAL [...] left lower leg, limited to breakdown skin ([facility]) Review of Systems: General: Fever: Negative Night [...] THYROGLOSSAL DUCT EXCISION Comment: [facility]- Dr. Vin Rishabh No date: THYROIDECTOMY 01/29/2018: UMBILICAL HERNIA REPAIR [...] date: Type 2 diabetes mellitus without complication ([facility] ([facility]) No date: Urinary tract infection No date: Uterine cancer ([facility] ([facility]) 05/10/2017: Vitamin D deficiency 06/21/2018: Zinc deficiency Current Outpatient Medications on File Prior to Encounter: albuterol 108 (90 Base) MCG/ACT inhaler, Inhale 2 puffs every 6 hours as needed., Disp: , Rfl: atorvastatin (Lipitor) 40 MG tablet, Take by mouth daily., Disp: , Rfl: BD Insulin Syringe U/F 30G X 1/2" 0.5 ML misc, 2 times daily with [...] as per protocol documented in this encounter [facility] 09-26-2023 Hospital Discharge instructions Zayda Bradford RN [...] the wound center. 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 Ambulatory Status: Walker Discharge Destination: home Transportation: Private Auto Accompanied by: patient Schedule Follow up Appointment: no No orders of the defined types were placed in this encounter. documented in this encounter [facility] 09-11-2023 History of Present illness Narrative RADIATION ONCOLOGY FOLLOW UP PATIENT: Dameon Potter DATE OF SERVICE: 09/11/2023 : 1955 AGE: 68 y.o. 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 MMR proteins intact. STAGE: pT2 NX M0, II HISTORY OF PRESENT ILLNESS: Ms. 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 A D&C was performed [...] cardiac complaints. She continues to follow with [employer] TEACHER oncology every 6 months. PAST MEDICAL HISTORY: [...] Zografakis WISDOM TOOTH EXTRACTION 2013 [employer] ALLERGIES: [...] daily. BD Insulin Syringe U/F 30G X 1/2" 0.5 ML misc 2 times daily with [...] F (36.8 C) Resp 18 Ht 5' 6" (1.676 m) Wt 260 lb 12.8 oz [...] nontender, nondistended. No hepatosplenomegaly, no suspicious mass. 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 Vaginal vault without mass [...] in 1 year. Ino He MD [facility] Department of Radiation Oncology is an Accredited Facility of the [employer] ([employer]). Total time: 25 [...] provider for clarification. documented in this encounter [facility] 09-11-2023 Nurse Note Pt here alone today [...] dilators. Pt continues to follow up with site head/onc. Medications and allergies reviewed. Pt set up for pelvic exam. [facility] 09-11-[address] He with pelvic exam. Pt tolerated well. [facility] 09-11-2023 Nurse Note Pt here alone today [...] dilators. Pt continues to follow up with site head/onc. Medications and allergies reviewed. Pt set up for pelvic exam. Assisted Dr. He with pelvic exam. Pt tolerated well. documented in this encounter [facility] 08-29-2023 History of Present illness Narrative INITIAL [...] retinopathy associated with type 2 diabetes mellitus ([facility]) Diastolic dysfunction Dry eye syndrome of bilateral lacrimal glands Malignant neoplasm of uterus ([facility]) Malnutrition of mild degree ([place]: 75% to less than 90% of standard weight) ([facility]) Moderate recurrent major depression ([facility]) Nuclear sclerotic cataract, bilateral Polycystic ovaries Posterior subcapsular age-related cataract of left eye Postmenopausal bleeding Primary open angle glaucoma of both eyes, mild stage Refractive error Chronic sinusitis Thyroglossal duct cyst Type 2 diabetes mellitus with hyperglycemia ([facility]) Corneal epithelial basement membrane dystrophy Uncontrolled type 2 diabetes mellitus Non-pressure chronic ulcer left lower leg, limited to breakdown skin ([facility]) Review of Systems: General: Fever: Negative Night [...] date: Type 2 diabetes mellitus without complication ([facility] ([facility]) No date: Urinary tract infection No date: Uterine cancer ([facility] ([facility]) 05/10/2017: Vitamin D deficiency 06/21/2018: Zinc deficiency Current Outpatient Medications on File Prior to Encounter: albuterol 108 (90 Base) MCG/ACT inhaler, Inhale 2 puffs every 6 hours as needed., Disp: , Rfl: atorvastatin (Lipitor) 40 MG tablet, Take by mouth daily., Disp: , Rfl: BD Insulin Syringe U/F 30G X 1/2" 0.5 ML misc, 2 times daily with [...] Gluc Sensor (FreeStyle Satya 2 Sensor) [facility] [place] Device every 14 (fourteen) days., Disp: [...] F) (Infrared) Resp 20 Wound : see [place] IMPRESSION:Lymphedema (primary encounter diagnosis) Plan: Plan for wound - Treatment: see orders Discussed appropriate home care of this wound. Wound redressed. Patient instructions were given. Follow up: as per protocol documented in this encounter [facility] 08-29-2023 Hospital Discharge instructions Zayda Bradford RN [...] the wound center. documented in this encounter [facility] 08-27-2023 Telephone encounter Note Scotty Paez. This patient is part of my research study. 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 Thanks AMAURY Aguilera CNP [facility] 08-27-2023 Miscellaneous Notes Scotty Paez. This patient is part of my research study. 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 Thanks AMAURY Aguilera CNP documented in this encounter [facility] 08-15-2023 History of Present illness Narrative [facility] Wound Care Center Nurse Visit Note Dameon [...] in this encounter. documented in this encounter [facility] 08-01-2023 History of Present illness Narrative INITIAL [...] to less than 90% of standard weight) ([facility]) Moderate recurrent major depression ([facility]) Nuclear sclerotic cataract, bilateral Polycystic ovaries Posterior subcapsular age-related cataract of left eye Postmenopausal bleeding Primary open angle glaucoma of both eyes, mild stage Refractive error Chronic sinusitis Thyroglossal duct cyst Type 2 diabetes mellitus with hyperglycemia ([facility]) Corneal epithelial basement membrane dystrophy Uncontrolled type 2 diabetes mellitus Non-pressure chronic ulcer left lower leg, limited to breakdown skin ([facility]) Review of Systems: General: Fever: Negative Night [...] 2 diabetes mellitus without complication (CMS/HCC) (HCC) No date: Urinary tract infection No date: Uterine cancer (CMS/HCC) (HCC) 05/10/2017: Vitamin D deficiency 06/21/2018: Zinc deficiency Current Outpatient Medications on File Prior to Encounter: albuterol 108 (90 Base) MCG/ACT inhaler, Inhale 2 puffs every 6 hours as needed., Disp: , Rfl: atorvastatin (Lipitor) 40 MG tablet, Take by mouth daily., Disp: , Rfl: BD Insulin Syringe U/F 30G X 1/2" 0.5 ML misc, 2 times daily with [...] Gluc Sensor (FreeStyle Satya 2 Sensor[place] [facility] [place] Device every 14 (fourteen) days., Disp: [...] F) (Infrared) Resp 18 Wound : see [place] IMPRESSION:Lymphedema (primary encounter diagnosis) Plan: Plan for wound - Treatment: see orders. Discussed appropriate home care of this wound. Wound redressed. Patient instructions were given. Follow up: as per plan documented in this encounter [facility] 08-01-2023 Hospital Discharge instructions Zayda Bradford RN [...] the wound center. documented in this encounter [facility] 07-18-2023 History of Present illness Narrative [facility] Nurse Visit Note Dameon [...] in this encounter. documented in this encounter [facility] 07-04-2023 History of Present illness Narrative [facility] Nurse Visit Note Dameon [...] in this encounter. documented in this encounter [facility] 06-20-2023 History of Present illness Narrative INITIAL [...] retinopathy associated with type 2 diabetes mellitus ([facility]) Diastolic dysfunction Dry eye syndrome of bilateral lacrimal glands Malignant neoplasm of uterus ([facility]) Malnutrition of mild degree ([place]chi: 75% to less than 90% of standard weight) ([facility]) Moderate recurrent major depression ([facility]) Nuclear sclerotic cataract, bilateral Polycystic ovaries Posterior subcapsular age-related cataract of left eye Postmenopausal bleeding Primary open angle glaucoma of both eyes, mild stage Refractive error Chronic sinusitis Thyroglossal duct cyst Type 2 diabetes mellitus with hyperglycemia ([facility]) Corneal epithelial basement membrane dystrophy Uncontrolled type 2 diabetes mellitus Non-pressure chronic ulcer left lower leg, limited to breakdown skin ([facility]) Review of Systems: General: Fever: Negative Night [...] date: Lymph edema No date: Morbid obesity ([facility]) No date: Obstructive sleep apnea No date: PMB (postmenopausal bleeding) No date: Polycystic ovarian syndrome No date: Psoriasis No date: SOB (shortness of breath) on exertion No date: Thyroglossal duct cyst No date: Type 2 diabetes mellitus without complication ([facility]) ([facility]) No date: Urinary tract infection No date: Uterine cancer ([facility]) ([facility]) 05/10/2017: Vitamin D deficiency 06/21/2018: Zinc deficiency Current Outpatient Medications on File Prior to Encounter: albuterol 108 (90 Base) MCG/ACT inhaler, Inhale 2 puffs every 6 hours as needed., Disp: , Rfl: atorvastatin (Lipitor) 40 MG tablet, Take by mouth daily., Disp: , Rfl: BD Insulin Syringe U/F 30G X 1/2" 0.5 ML misc, 2 times daily with [...] as per protocol documented in this encounter [facility] 06-20-2023 Hospital Discharge instructions Zayda Bradford RN [...] the wound center. documented in this encounter [facility] 06-06-2023 History of Present illness Narrative Images from the original note were not included. [facility] Nurse Visit Note Dameon [...] Healing % 27 04/17/23 1149 Drainage Description Gonzales 04/17/23 1149 Odor None 04/17/23 1149 Drainage [...] in this encounter. documented in this encounter [facility] 05-23-2023 History of Present illness Narrative INITIAL [...] retinopathy associated with type 2 diabetes mellitus ([facility]) Diastolic dysfunction Dry eye syndrome of bilateral lacrimal glands Malignant neoplasm of uterus ([facility]) Malnutrition of mild degree ([place]: 75% to less than 90% of standard weight) ([facility]) Moderate recurrent major depression ([facility]) Nuclear sclerotic cataract, bilateral Polycystic ovaries Posterior subcapsular age-related cataract of left eye Postmenopausal bleeding Primary open angle glaucoma of both eyes, mild stage Refractive error Chronic sinusitis Thyroglossal duct cyst Type 2 diabetes mellitus with hyperglycemia ([facility]) Corneal epithelial basement membrane dystrophy Uncontrolled type 2 diabetes mellitus Non-pressure chronic ulcer left lower leg, limited to breakdown skin ([facility]) Review of Systems: General: Fever: Negative Night [...] w/ Lap Aggie and Umbilical Hernia repair, Tiffanygrafakis No date: GASTRIC BYPASS 09/30/2020: HYSTERECTOMY Comment: [facility]/BSO; Dr. Cuauhtemoc Stubbs : MOUTH SURGERY Comment: gum removal to expose wisdom teeth 2000: THYROGLOSSAL DUCT EXCISION Comment: [facility]- Dr. Vin Keating No date: THYROIDECTOMY 01/29/2018: [...] date: Type 2 diabetes mellitus without complication ([facility]) ([facility]) No date: Urinary tract infection No date: Uterine cancer ([facility]) ([facility]) 05/10/2017: Vitamin D deficiency 06/21/2018: Zinc deficiency Current Outpatient Medications on File Prior to Encounter: albuterol 108 (90 Base) MCG/ACT inhaler, Inhale 2 puffs every 6 hours as needed., Disp: , Rfl: atorvastatin (Lipitor) 40 MG tablet, Take by mouth daily., Disp: , Rfl: BD Insulin Syringe U/F 30G X 1/2" 0.5 ML misc, 2 times daily with [...] Gluc Sensor (FreeStyle Satya 2 Sensor) [facility] [place] Device every 14 (fourteen) days., Disp: [...] (98.9 F) Resp 18 Wound : see [place] IMPRESSION:Lymphedema (primary encounter diagnosis) Plan: Plan for wound - Treatment: see orders Discussed appropriate home care of this wound. Wound redressed. Patient instructions were given. Follow up: as per protocol documented in this encounter [facility] 05-23-2023 Hospital Discharge instructions Zayda Bradford RN [...] the wound center. documented in this encounter [facility] 05-11-2023 Telephone encounter Note I'll forward to gordon from [employer] to see if we can get an order placed for satya 2 reader/sensors. Thank you! Once she receives these items, we can assist with getting her scheduled for a nurse visit. [facility] 05-11-2023 Miscellaneous Notes I'll forward to gordon from [employer] to see if we can get an [...] covered and taught documented in this encounter [facility] 05-09-2023 Telephone encounter Note Had cgm prescribed before but did not learn to use and then was told from [facility] that it may be defective -please see if can get it re-prescribed, covered and taught [facility] 05-09-2023 Miscellaneous Notes Had cgm prescribed before but did not learn to use and then was told from sg that it may be defective -please see if can get it re-prescribed, covered and taught documented in this encounter [facility] 05-09-2023 History of Present illness Narrative . ENDOCRINOLOGY [address] COUNTS INCLUDE 234 BEDS AT THE [facility] [address] Dept: [phone] Dept Visit type: Established patient Reason for [...] daily. BD Insulin Syringe U/F 30G X 1/2" 0.5 ML misc 2 times daily with [...] expose wisdom teeth THYROGLOSSAL DUCT EXCISION 2000 [facility]- Dr. Vin Keating THYROIDECTOMY UMBILICAL HERNIA REPAIR [...] BP Cuff Size: Large adult) Ht 5' 6" (1.676 m) Wt 274 lb (124 kg) [...] 07/31/2019 13.9 11.7 - 16.0 g/dL Final [facility] CORPUSCULAR VOLUME Date Value Ref Range [...] 06/22/2021 50 35 - 70 mg/dL Final [facility] [employer] VITAMIN D 25-HYDROXY Date Value Ref Range Status 04/06/2021 22 (L) 30 - 100 ng/mL Final Comment: Therapy is based on measurement of Total 25-OHD with the following classification levels: Less than 20 ng/mL: Indicative of Vit D deficiency 20-30 ng/mL: Suggests Vit D insufficiency Optimal: Greater than or equal to 30 ng/mL Test performed by [employer] Competitive Immunoassay, measuring Total Vitamin D, not individual fractions. HEMOGLOBIN A1C Date Value Ref Range Status 03/03/2022 11.2 % Final Hemoglobin A1C Date Value Ref Range Status 05/09/2023 10.2 (A) 5.7 % Final Imaging/Testing: Bridget Alcantara MD documented in this encounter [facility] 05-08-2023 History of Present illness Narrative Images from the original note were not included. [facility] Nurse Visit Note Dameon [...] surgeries since last visit: No Assessment: Vitals: 10/17/23 1152 BP: (!) 181/77 Pulse: 93 Resp: [...] Healing % 27 04/17/23 1149 Drainage Description Gonzales 04/17/23 1149 Odor None 04/17/23 1149 Drainage [...] in this encounter. documented in this encounter [facility] 04-25-2023 History of Present illness Narrative INITIAL [...] wisdom teeth 2000: THYROGLOSSAL DUCT EXCISION Comment: Cookie Keating No date: THYROIDECTOMY 01/29/2018: UMBILICAL HERNIA REPAIR Comment: w/ LRYGB and Lap Aggie - [place] 03/20/2017: UPPER GASTROINTESTINAL ENDOSCOPY Comment: pre op, [...] date: Lymph edema No date: Morbid obesity ([facility]) No date: Obstructive sleep apnea No date: PMB (postmenopausal bleeding) No date: Polycystic ovarian syndrome No date: Psoriasis No date: SOB (shortness of breath) on exertion No date: Thyroglossal duct cyst No date: Type 2 diabetes mellitus without complication ([facility]) ([facility]) No date: Urinary tract infection No date: Uterine cancer (CMS/[facility]) ([facility]) 05/10/2017: Vitamin D deficiency 06/21/2018: Zinc deficiency Current Outpatient Medications on File Prior to Encounter: albuterol 108 (90 Base) MCG/ACT inhaler, Inhale 2 puffs every 6 hours as needed., Disp: , Rfl: atorvastatin (Lipitor) 40 MG tablet, Take by mouth daily., Disp: , Rfl: BD Insulin Syringe U/F 30G X 1/2" 0.5 ML misc, 2 times daily with [...] Gluc Sensor (FreeStyle Satya 2 Sensor) [facility] [place] Device every 14 (fourteen) days., Disp: [...] Once, Jerome Perdomo MD Allergies as of 04/25/2023 - [...] (96.8 F) Resp 20 Wound : see [place] IMPRESSION:Lymphedema (primary encounter diagnosis) Plan: Plan for wound - Treatment: see orders Discussed appropriate home care of this wound. Wound redressed. Patient instructions were given. Follow up: as per protocol documented in this encounter [facility] 04-25-2023 Hospital Discharge instructions Zayda Bradford RN [...] the wound center. documented in this encounter [facility] 04-17-2023 History of Present illness Narrative Images from the original note were not included. [facility] Nurse Visit Note Dameon [...] Healing % 27 04/17/23 1149 Drainage Description Gonzales 04/17/23 1149 Odor None 04/17/23 1149 Drainage [...] in this encounter. documented in this encounter [facility] 04-11-2023 History of Present illness Narrative INITIAL [...] retinopathy associated with type 2 diabetes mellitus ([facility]) Diastolic dysfunction Dry eye syndrome of bilateral lacrimal glands Malignant neoplasm of uterus ([facility]) Malnutrition of mild degree ([place]ianchi: 75% to less than 90% of standard weight) ([facility]) Moderate recurrent major depression ([facility]) Nuclear sclerotic cataract, bilateral Polycystic ovaries Posterior subcapsular age-related cataract of left eye Postmenopausal bleeding Primary open angle glaucoma of both eyes, mild stage Refractive error Chronic sinusitis Thyroglossal duct cyst Type 2 diabetes mellitus with hyperglycemia (CMS/HCC) ([facility]) Corneal epithelial basement membrane dystrophy Uncontrolled type 2 diabetes mellitus Non-pressure chronic ulcer left lower leg, limited to breakdown skin ([facility]) Review of Systems: General: Fever: Negative Night [...] date: Lymph edema No date: Morbid obesity ([facility]) No date: Obstructive sleep apnea No date: PMB (postmenopausal bleeding) No date: Polycystic ovarian syndrome No date: Psoriasis No date: SOB (shortness of breath) on exertion No date: Thyroglossal duct cyst No date: Type 2 diabetes mellitus without complication ([facility]/HCC) ([facility]) No date: Urinary tract infection No date: Uterine cancer ([facility]) ([facility]) 05/10/2017: Vitamin D deficiency 06/21/2018: Zinc deficiency Current Outpatient Medications on File Prior to Encounter: albuterol 108 (90 Base) MCG/ACT inhaler, Inhale 2 puffs every 6 hours as needed., Disp: , Rfl: atorvastatin (Lipitor) 40 MG tablet, Take by mouth daily., Disp: , Rfl: BD Insulin Syringe U/F 30G X 1/2" 0.5 ML misc, 2 times daily with [...] Once, Jerome Perdomo MD Allergies as of 04/11/2023 - [...] F) (Temporal) Resp 16 Wound : see [place] IMPRESSION:Non-pressure chronic ulcer left lower leg, 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) (primary encounter diagnosis) Plan: Plan for wound - Treatment: see orders Discussed appropriate home care of this wound. Wound redressed. Patient instructions were given. Follow up: 1 wk documented in this encounter [facility] 04-11-2023 Hospital Discharge instructions Zayda Bradford RN [...] profore for padding. documented in this encounter [facility] 04-10-2023 History of Present illness Narrative (H40.1031) Primary open angle glaucoma of both eyes, [...] nerve both eyes done today and reviewed. (E11.6373) 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 and macular edema, without long-term current use of insulin ([facility]) Comment: Discussed retinopathy both eyes with diabetic [...] 2023 4:48 PM documented in this encounter [facility] 04-09-2023 History of Present illness Narrative [...] treatment: tolerated well documented in this encounter [facility] 04-09-2023 History of Present illness Narrative Pt. [...] treatment: tolerated well documented in this encounter [facility] 04-09-2023 Hospital Discharge instructions Zayda Bradford RN [...] profore for padding. documented in this encounter [facility] 04-09-2023 Hospital Discharge instructions Zayda Bradford RN [...] profore for padding. documented in this encounter [facility] 04-09-2023 Miscellaneous Notes Encounter addended by: Mackenzie Avitia RN on: 04/12/2023 10:07 AM Actions taken: Visit diagnoses modified documented in this encounter [facility] 04-09-2023 Note Encounter addended b y: Mackenzie Avitia RN on: 04/12/2023 10:07 AM Actions taken: Visit diagnoses modified [facility] 03-28-2023 History of Present illness Narrative [facility] W[facility] Nurse Visit Note Dameon [...] in this encounter. documented in this encounter [facility] 03-28-2023 Hospital Discharge instructions Moses Oliveira - [...] the wound center. documented in this encounter [facility] 03-23-2023 History of Present illness Narrative [facility] ENDOCRINOLOGY [address] [place] [address] Dept: [phone] Dept Visit Date: 03/23/2023 Individual DSME Appointment [...] work hours: Language: english___ List cultural or mormonism beliefs that may impact your care: __none __ Last grade completed? Can you read/write [place]? [x] Yes [] No Learning Barriers: [] [...] A1C target? [] Do you see a Predatory Hunter? Last visit date: Taking Medications and Health [...] and previous workup. documented in this encounter [facility] 03-14-2023 History of Present illness Narrative INITIAL [...] standard weight) (HCC) Moderate recurrent major depression ([facility]) Nuclear sclerotic cataract, bilateral Polycystic ovaries Posterior subcapsular age-related cataract of left eye Postmenopausal bleeding Primary open angle glaucoma of both eyes, mild stage Refractive error Chronic sinusitis Thyroglossal duct cyst Type 2 diabetes mellitus with hyperglycemia (CMS/HCC) ([facility]) Corneal epithelial basement membrane dystrophy Uncontrolled type [...] date: Type 2 diabetes mellitus without complication ([facility]) ([facility]) No date: Urinary tract infection No date: Uterine cancer ([facility]) ([facility]) 05/10/2017: Vitamin D deficiency 06/21/2018: Zinc deficiency Current Outpatient Medications on File Prior to Encounter: albuterol 108 (90 Base) MCG/ACT inhaler, Inhale 2 puffs every 6 hours as needed., Disp: , Rfl: atorvastatin (Lipitor) 40 MG tablet, Take by mouth daily., Disp: , Rfl: BD Insulin Syringe U/F 30G X 1/2" 0.5 ML misc, 2 times daily with [...] F) (Infrared) Resp 20 Wound : see [place] IMPRESSION:Lymphedema (primary encounter diagnosis) Plan: Plan for wound - Treatment: see orders Discussed appropriate home care of this wound. Wound redressed. Patient instructions were given. Follow up: as planned documented in this encounter [facility] 03-14-2023 Hospital Discharge instructions Zayda Bradford RN [...] the wound center. documented in this encounter [facility] 03-02-2023 History of Present illness Narrative RADIATION ONCOLOGY FOLLOW UP PATIENT: Dameon Potter DATE OF SERVICE: 03/02/2023 : 1955 AGE: 68 y.o. 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 MMR proteins intact. STAGE: pT2 NX M0, II HISTORY OF PRESENT ILLNESS: Ms. 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 A D&C was performed [...] health issues. She continues to follow with [employer] oncology every 6 months and is scheduled [...] expose wisdom teeth THYROGLOSSAL DUCT EXCISION 2000 [facility]- Dr. Vin Keating THYROIDECTOMY UMBILICAL HERNIA REPAIR [...] daily. BD Insulin Syringe U/F 30G X 1/2" 0.5 ML misc 2 times daily with [...] tablet Every 24 hours. PRN multivitamin, Pediatric, ([employer]umm[employer]) chewable tablet Chew 1 tablet. olmesartan [...] F (36.1 C) Resp 18 Ht 5' 6" (1.676 m) Wt 281 lb (127 kg) [...] nontender, nondistended. No hepatosplenomegaly, no suspicious mass. 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 Vaginal vault without mass [...] with her multiple physicians. Scheduled to see [employer] oncology in April. PLAN: Return in 6 months. Ino He MD [facility] Department of Radiation Oncology is an Accredited Facility of the [employer] ([employer]). Total time: 25 [...] provider for clarification. documented in this encounter [facility] 03-02-2023 Nurse Note Here alone for follow up with Dr. He. Reports good appetite and energy; uses wheeled walker for ambulation. Denies any vaginal discharge/bleeding, urinary or bowel issues but does have occasional diarrhea. Medications reviewed. [facility] 03-02-2023 Nurse Note Pt prepped for pelvic exam. This nurse assisted Dr. He with exam. [facility] 03-02-2023 Nurse Note Here alone for follow up with Dr. He. Reports good appetite and energy; uses wheeled walker for ambulation. Denies any vaginal discharge/bleeding, urinary or bowel issues but does have occasional diarrhea. Medications reviewed. Pt prepped for pelvic exam. This nurse assisted Dr. He with exam. documented in this encounter [facility] 02-28-2023 History of Present illness Narrative [facility] W[facility] Nurse Visit Note aDmeon Potter AGE: 68 y.o. GENDER: female : [...] in this encounter. documented in this encounter [facility] 02-14-2023 History of Present illness Narrative INITIAL [...] date: Type 2 diabetes mellitus without complication ([facility]) ([facility]) No date: Urinary tract infection No date: Uterine cancer ([facility]) ([facility]) 05/10/2017: Vitamin D deficiency 06/21/2018: Zinc deficiency Current Outpatient Medications on File Prior to Encounter: albuterol 108 (90 Base) MCG/ACT inhaler, Inhale 2 puffs every 6 hours as needed., Disp: , Rfl: atorvastatin (Lipitor) 40 MG tablet, Take by mouth daily., Disp: , Rfl: BD Insulin Syringe U/F 30G X 1/2" 0.5 ML misc, 2 times daily with [...] Gluc Sensor (FreeStyle Satya 2 Sensor) [facility] [place] Device every 14 (fourteen) days., Disp: [...] Jerome Haile Perdomo MD Allergies as of 02/14/2023 - [...] up: as planned documented in this encounter [facility] 02-14-2023 Hospital Discharge instructions Moses Oliveira - [...] the wound center. documented in this encounter [facility] 01-31-2023 History of Present illness Narrative [facility] Nurse Visit Note Dameon [...] in this encounter. documented in this encounter [facility] 01-31-2023 Miscellaneous Notes Encounter addended by: Mackenzie Avitia RN on: 01/31/2023 4:10 PM Actions taken: Episode edited documented in this encounter [facility] 01-31-2023 Note Encounter addended b y: Mackenzie Avitia RN on: 01/31/2023 4:10 PM Actions taken: Episode edited [facility] 01-31-2023 Note Encounter addended b y: Mackenzie Avitia RN on: 01/31/2023 4:10 PM Actions taken: Episode edited [facility] 01-31-2023 Note Encounter addended b y: Mackenzie Avitia RN on: 01/31/2023 4:10 PM Actions taken: Episode edited [facility] 01-19-2023 History of Present illness Narrative Images from the original note were not included. [address] [place] [id number] Dept: [phone] Dept Loc: [phone] Visit type: Established patient Reason for Visit: Diabetes, Follow-up, and Hyperglycemia Assessment and Plan 1. Type 2 diabetes mellitus with hyperglycemia, with long-term current use of insulin ([facility]/HCC) ([facility]) - AMB POC HEMOGLOBIN A1C 2. 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 without macular edema, with long-term current use of insulin ([facility]) 3. Primary hypertension 4. Hyperlipidemia associated with type 2 diabetes mellitus ([facility]) 5. Class 3 severe obesity due to excess calories with serious comorbidity and body mass index (BMI) of 45.0 to 49.9 in adult ([facility]) 6. Acquired hypothyroidism 7. Insulin resistance Diabetes [...] use of insulin -controlled- continue to follow [facility] Dr Acevedo Continue to work on [...] Christy Rizzo MD Referring is PCP Previous Business Development Professional: Dr. 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 BD Insulin Syringe U/F 30G X 1/2" 0.5 ML misc brimonidine (Alphagan P) 0.1 [...] Gluc Sensor (FreeStyle Satya 2 Sensor) [facility] 1 Device every 14 (fourteen) days. 9 [...] 0 pen needle 31G x 6 mm [facility] Use as instructed 100 each 12 brimonidine [...] expose wisdom teeth THYROGLOSSAL DUCT EXCISION 2000 [facility] Vin Keating THYROIDECTOMY UMBILICAL HERNIA REPAIR [...] Size: Large adult) Pulse 64 Ht 5' 6" (1.676 m) Wt 284 lb 4.8 oz [...] CHOLHDLRATIO 3 03/04/2020 No results found for: [id number] Imaging/Testing: Lyric Cruz APRN - CRISIS COUNSELOR Portions of the information within this encounter were entered using an electronic dictation system. Best attempts were made to edit/proofread the information prior to note completion. Despite the review of information, some errors may remain. If there are questions related to the information contained within the note please contact the signing physician directly. documented in this encounter [facility] 01-17-2023 History of Present illness Narrative INITIAL [...] hyperglycemia, with long-term current use of insulin ([facility]) Deficiency of nutrient elements Zinc deficiency Lymphedema [...] to less than 90% of standard weight) ([facility]) Moderate recurrent major depression ([facility]) Nuclear sclerotic cataract, bilateral Polycystic ovaries Posterior [...] Type 2 diabetes mellitus without complication (CMS/HCC) ([facility]) No date: Urinary tract infection No date: Uterine cancer (CMS/HCC) ([facility]) 05/10/2017: Vitamin D deficiency 06/21/2018: Zinc deficiency Current Outpatient Medications on File Prior to Encounter: albuterol 108 (90 Base) MCG/ACT inhaler, Inhale 2 puffs every 6 hours as needed., Disp: , Rfl: atorvastatin (Lipitor) 40 MG tablet, Take by mouth daily., Disp: , Rfl: BD Insulin Syringe U/F 30G X 1/2" 0.5 ML misc, , Disp: , Rfl: [...] Gluc Sensor (FreeStyle Satya 2 Sensor) [facility], 1 Device every 14 (fourteen) days., Disp: [...] pen needle 31G x 6 mm [facility], Use as instructed, Disp: 100 each, Rfl: [...] Once, Jerome Perdomo MD Allergies as of 01/17/2023 - [...] 36.1 C (97 F) Wound : see [place] [facility] IMPRESSION:Lymphedema (primary encounter diagnosis) Plan: Plan for wound - Treatment: see orders Discussed appropriate home care of this wound. Wound redressed. Patient instructions were given. Follow up: as per plan documented in this encounter [facility] 01-17-2023 Hospital Discharge instructions Zayda Bradford RN [...] the wound center. documented in this encounter [facility] 01-03-2023 History of Present illness Narrative [facility] Nurse Visit Note Dameon [...] in this encounter. documented in this encounter [facility] 01-03-2023 History of Present illness Narrative [facility] Nurse Visit Note Dameon [...] in this encounter. documented in this encounter [facility] 12-20-2022 History of Present illness Narrative INITIAL [...] Type 2 diabetes mellitus without complication (CMS/HCC) ([facility]) No date: Urinary tract infection No date: Uterine cancer (CMS/HCC) ([facility]) 05/10/2017: Vitamin D deficiency 06/21/2018: Zinc deficiency Current Outpatient Medications on File Prior to Encounter: albuterol 108 (90 Base) MCG/ACT inhaler, Inhale 2 puffs every 6 hours as needed., Disp: , Rfl: atorvastatin (Lipitor) 40 MG tablet, Take by mouth daily., Disp: , Rfl: BD Insulin Syringe U/F 30G X 1/2" 0.5 ML mis, , Disp: , Rfl: brimonidine (Alphagan P) [...] Gluc Sensor (FreeStyle Satya 2 Sensor) [facility], 1 Device every 14 (fourteen) days., Disp: [...] Once, Jeromeniurka Perdomo MD Allergies as of 12/20/2022 - [...] up: as planned documented in this encounter [facility] 12-20-2022 Hospital Discharge instructions Moses Oliveira - 12/20/2022 11:00 AM EDT Nurse visit [...] the wound center. documented in this encounter [facility] 11-24-2022 History of Present illness Narrative [facility] Nurse Visit Note Dameon [...] in this encounter. documented in this encounter [facility] 11-22-2022 History of Present illness Narrative INITIAL [...] date: Lymph edema No date: Morbid obesity ([facility]) ([facility]) No date: Obstructive sleep apnea No date: PMB (postmenopausal bleeding) No date: Polycystic ovarian syndrome No date: Psoriasis No date: SOB (shortness of breath) on exertion No date: Thyroglossal duct cyst No date: Type 2 diabetes mellitus without complication ([facility]) ([facility]) No date: Urinary tract infection No date: Uterine cancer ([facility]) ([facility]) 05/10/2017: Vitamin D deficiency 06/21/2018: Zinc deficiency Current Outpatient Medications on File Prior to Encounter: albuterol 108 (90 Base) MCG/ACT inhaler, Inhale 2 puffs every 6 hours as needed., Disp: , Rfl: atorvastatin (Lipitor) 40 MG tablet, Take by mouth daily., Disp: , Rfl: BD Insulin Syringe U/F 30G X 1/2" 0.5 ML mis, , Disp: , Rfl: brimonidine (Alphagan P) [...] Gluc Sensor (FreeStyle Satya 2 Sensor) [facility], 1 Device every 14 (fourteen) days., Disp: [...] pen needle 31G x 6 mm [facility], Use as instructed, Disp: 100 each, Rfl: [...] Escobar CNP 11/22/22 documented in this encounter [facility] 11-03-2022 History of Present illness Narrative @LOGOIMAGE@ [...] (HCC) Urinary tract infection Uterine cancer (CMS/HCC) ([facility]) Vitamin D deficiency 05/10/2017 Zinc deficiency 06/21/2018 [...] expose wisdom teeth THYROGLOSSAL DUCT EXCISION 2000 [facility]- Dr. Vin Keating THYROIDECTOMY UMBILICAL HERNIA REPAIR 01/29/2018 w/ LRYGB and Lap Aggie - [facility] UPPER GASTROINTESTINAL ENDOSCOPY 03/20/2017 pre op, [facility] WISDOM TOOTH EXTRACTION 2012 [facility] [email or web address] Allergies as of 11/03/2022 [...] coordination of care. documented in this encounter [facility] 10-25-2022 History of Present illness Narrative INITIAL [...] date: Lymph edema No date: Morbid obesity ([facility]) ([facility]) No date: Obstructive sleep apnea No date: PMB (postmenopausal bleeding) No date: Polycystic ovarian syndrome No date: Psoriasis No date: SOB (shortness of breath) on exertion No date: Thyroglossal duct cyst No date: Type 2 diabetes mellitus without complication ([facility]) ([facility]) No date: Urinary tract infection No date: Uterine cancer ([facility]) ([facility]) 05/10/2017: Vitamin D deficiency 06/21/2018: Zinc deficiency Current Outpatient Medications on File Prior to Encounter: albuterol 108 (90 Base) MCG/ACT inhaler, Inhale 2 puffs every 6 hours as needed., Disp: , Rfl: atorvastatin (Lipitor) 40 MG tablet, Take by mouth daily., Disp: , Rfl: BD Insulin Syringe U/F 30G X 1/2" 0.5 ML misc, , Disp: , Rfl: [...] Gluc Sensor (FreeStyle Satya 2 Sensor) [facility], 1 Device every 14 (fourteen) days., Disp: [...] Rfl: pen needle 31G x [facility], Use as instructed, Disp: 100 each, [...] up: per plan documented in this encounter [facility] 10-25-2022 Hospital Discharge instructions Nieves Norris RN [...] the wound center. documented in this encounter [facility] 10-06-2022 Telephone encounter Note Please see if patient qualifies for assistance for ozempic he is will to fill scripts with [facility] 10-06-2022 Miscellaneous Notes Please see if patient qualifies for assistance for ozempic he is will to fill scripts with [facility] Faxed request for lab results to [phone] Kristal, can you please call patient's pcp, Dr Mendez office ([phone]) on Sunday and have her lab results from couple weeks ago faxed to Lisa? I called office, they are closed. Lisa is requesting results. Thank you! documented in this encounter [facility] 10-06-2022 Telephone encounter Note Faxed request for lab results to [phone] [facility] 10-06-2022 Telephone encounter Note Kristal, can you please call patient's pcp, Dr Mendez office ([phone]) on Sunday and have her lab results from couple weeks ago faxed to Lisa? I called office, they are closed. Lisa is requesting results. Thank you! [facility] 09-27-2022 History of Present illness Narrative INITIAL [...] Patient Active Problem List: Endometrial cancer (CMS/HCC) ([facility]) Obesity with body mass index greater than 30 OAB (overactive bladder) Uncontrolled type 2 diabetes mellitus with hyperglycemia, with long-term current use of insulin ([facility]) Deficiency of nutrient elements Zinc deficiency Lymphedema Hepatic steatosis Calculus of gallbladder with chronic cholecystitis without obstruction Vitamin D deficiency Intestinal malabsorption Morbid obesity (CMS/HCC) ([facility]) Hypothyroidism Essential hypertension, benign Mixed hyperlipidemia Fatigue Obstructive sleep apnea SOB (shortness of breath) on exertion Gastritis without bleeding PND (post-nasal drip) Gastroesophageal reflux disease without esophagitis Asthma without status asthmaticus Candidal vulvovaginitis Cardiomegaly Cortical cataract of both eyes Diabetic retinopathy associated with type 2 diabetes mellitus (CMS/HCC) ([facility]) Diastolic dysfunction Dry eye syndrome of bilateral lacrimal glands Malignant neoplasm of uterus ([facility]) Malnutrition of mild degree ([place]ianchi: 75% to less than 90% of standard weight) ([facility]) Moderate recurrent major depression ([facility]) Nuclear sclerotic cataract, bilateral Polycystic ovaries Posterior subcapsular age-related cataract of left eye Postmenopausal bleeding Primary open angle glaucoma of both eyes, mild stage Refractive error Chronic sinusitis Thyroglossal duct cyst Type 2 diabetes mellitus with hyperglycemia (CMS/HCC) ([facility]) Review of Systems: General: Fever: Negative Night [...] date: Lymph edema No date: Morbid obesity ([facility]) ([facility]) No date: Obstructive sleep apnea No date: PMB (postmenopausal bleeding) No date: Polycystic ovarian syndrome No date: Psoriasis No date: SOB (shortness of breath) on exertion No date: Thyroglossal duct cyst No date: Type 2 diabetes mellitus without complication ([facility]) ([facility]) No date: Urinary tract infection No date: Uterine cancer ([facility]) ([facility]) 05/10/2017: Vitamin D deficiency 06/21/2018: Zinc deficiency [...] Once, Jeromeniurka Perdomo MD Allergies as of 09/27/2022 - [...] every few wks documented in this encounter [facility] 09-27-2022 Hospital Discharge instructions Zayda Bradford RN [...] the wound center. documented in this encounter [facility] 09-13-2022 History of Present illness Narrative RADIATION ONCOLOGY FOLLOW UP PATIENT: Dameon Potter DATE OF SERVICE: 09/13/2022 : 1955 AGE: 67 y.o. 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 MMR proteins intact. STAGE: pT2 NX M0, II HISTORY OF PRESENT ILLNESS: Ms. 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 A D&C was performed [...] follow-up. She continues to follow with her manager cargo for the diabetes and [employer] oncology along with wound care who she saw today. She continues to do the leg wraps. She still has a periodic yeast infections. She has intermittent diarrhea and urinary incontinence. She uses Imodium as needed. She was recently treated for a yeast infection after noticing some pinkish vaginal drainage. No further drainage. She is scheduled to see [employer] oncology again in October. No new respiratory [...] expose wisdom teeth THYROGLOSSAL DUCT EXCISION 2000 [facility]- Dr. Vin Keating THYROIDECTOMY UMBILICAL HERNIA REPAIR 01/29/2018 w/ LRYGB and Lap Aggie - [facility] UPPER GASTROINTESTINAL ENDOSCOPY 03/20/2017 pre op, Tiffanyrony WISDOM TOOTH EXTRACTION 2012 [facility] ALLERGIES: [...] PRN pen needle 31G x 6 mm misc [...] F (36.6 C) Resp 18 Ht 5' 6" (1.676 m) Wt 281 lb (127 kg) [...] nontender, nondistended. No hepatosplenomegaly, no suspicious mass. 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 Vaginal vault without mass [...] The patient continues to work with her manager cargo for management of the diabetes. She knows that if this is under control that the yeast infections will probably decrease. She is trying to eat healthy and stay hydrated. Clinically there is no sign of recurrence. PLAN: Return to office in 6 months. Ino He MD [facility] Department of Radiation Oncology is an Accredited Facility of the [employer] ([employer]). Total time: 25 [...] provider for clarification. documented in this encounter [facility] 09-13-2022 Nurse Note Pt here alone today [...] He with pelvic exam. Pt tolerated well. [facility] 09-13-2022 Nurse Note Pt here alone today [...] Pt tolerated well. documented in this encounter [facility] 08-30-2022 History of Present illness Narrative INITIAL [...] to less than 90% of standard weight) ([facility]) Moderate recurrent major depression (HCC) Nuclear sclerotic [...] expose wisdom teeth THYROGLOSSAL DUCT EXCISION 2000 [facility]- Dr. Vin Keating THYROIDECTOMY UMBILICAL HERNIA REPAIR 01/29/2018 w/ LRYGB and Lap Aggie - [facility] UPPER GASTROINTESTINAL ENDOSCOPY 03/20/2017 pre op, [facility]ografakis WISDOM TOOTH EXTRACTION 2013 [facility] Past Medical History: Diagnosis Date Anxiety Asthma Deficiency of nutrient elements Depression Dry eye Fatigue Gastritis GERD (gastroesophageal reflux disease) Glaucoma Glaucoma Hyperlipidemia Hypertension Hypothyroid Hypothyroidism Incontinence Intestinal malabsorption Lymph edema Morbid obesity ([facility]) (HCC) Obstructive sleep apnea PMB (postmenopausal bleeding) Polycystic ovarian syndrome Psoriasis SOB (shortness of breath) on exertion Thyroglossal duct cyst Type 2 diabetes mellitus without complication (CMS/[facility]) (HCC) Urinary tract infection Uterine cancer ([facility]) ([facility]) Vitamin D deficiency 05/10/2017 Zinc deficiency 06/21/2018 [...] hours. pen needle 31G x 6 mm [facility] Use as instructed 100 each 12 triamcinolone [...] up: 1 week. documented in this encounter [facility] 08-30-2022 Hospital Discharge instructions Zayda Bradford RN - [...] to both legs documented in this encounter [facility] 08-02-2022 History of Present illness Narrative INITIAL [...] to less than 90% of standard weight) ([facility]) Moderate recurrent major depression (HCC) Nuclear sclerotic cataract, bilateral Polycystic ovaries Posterior subcapsular age-related cataract of left eye Postmenopausal bleeding Primary open angle glaucoma of both eyes, mild stage Refractive error Chronic sinusitis Thyroglossal duct cyst Type 2 diabetes mellitus with hyperglycemia (CMS/HCC) ([facility]) Review of Systems: General: Fever: Negative Night Sweats: Negative Eye: Blurry Vision:Negative Double Vision: Negative Ent: Headaches: Negative Sore throat: Negative Allergy/Immunology: Hives: Negative Hematology/Lymphatic: Bleeding Problems: Negative Blood Clots: Negative Swollen Lymph Nodes: Negative Lungs: Cough: Negative SOB: Negative Cardiovascular: Chest Pain: Negative Palpitations:Negative GI: Nausea/Vomiting: Negative Abdominal Pain: Negative Change in Bowels:{Pos/neg for:60209) : Dysuria: Negative Increase Urinary Frequency/Urgency: Negative [...] [facility] UPPER GASTROINTESTINAL ENDOSCOPY 03/20/2017 pre op, eDepali WISDOM TOOTH EXTRACTION 2013 [facility] Past Medical History: Diagnosis Date Anxiety Asthma Deficiency of nutrient elements Depression Dry eye Fatigue Gastritis GERD (gastroesophageal reflux disease) Glaucoma Glaucoma Hyperlipidemia Hypertension Hypothyroid Hypothyroidism Incontinence Intestinal malabsorption Lymph edema Morbid obesity (CMS/[facility]) ([facility]) Obstructive sleep apnea PMB (postmenopausal bleeding) Polycystic ovarian syndrome Psoriasis SOB (shortness of breath) on exertion Thyroglossal duct cyst Type 2 diabetes mellitus without complication (CMS/HCC) ([facility]) Urinary tract infection Uterine cancer ([facility]) ([facility]) Vitamin D deficiency 05/10/2017 Zinc deficiency 06/21/2018 [...] up: 1 week. documented in this encounter [facility] 08-02-2022 Hospital Discharge instructions Zayda Bradford RN [...] to both legs documented in this encounter [facility] 08-01-2022 Telephone encounter Note I just checked the notes are sighed I just printed them in the MA room for you [facility] 08-01-2022 Miscellaneous Notes I just checked the notes are sighed I just printed them in the MA room for you Name of caller: Gordon Contact phone number: [phone] Relationship to Patient: [employer] Provider: Anthony Practice: End[facility] Chief Complaint/Reason for Call: Carly has sent over office notes for a CGM, however these notes were not electrically signed, and that's what are needed to proceed. Please advise Best time of day caller can be reached: Patient advised that office/PCP has 24-48 business hours to return their call: documented in this encounter [facility] 07-31-2022 Telephone encounter Note Name of caller: Gordon Contact phone number: [phone] Relationship to Patient: [employer] Provider: Anthony Practice: [facility] Chief Complaint/Reason for Call: Carly has sent over office notes for a CGM, however these notes were not electrically signed, and that's what are needed to proceed. Please advise Best time of day caller can be reached: Patient advised that office/PCP has 24-48 business hours to return their call: [facility] 04-06-2022 History of Present illness Narrative (E11.3293, Z79.4) 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 without macular edema, with long-term current use of insulin (HCC) (primary encounter diagnosis) Comment: Discussed stable retinopathy [...] 2022 1:47 PM documented in this encounter [facility] 01-06-2022 History of Present illness Narrative [...] edema, with long-term current use of insulin ([facility]) Comment: Discussed stable retinopathy both eyes. Plan: Continue blood sugar control and monitor with primary care physician. 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 Plan: Reviewed possible worsening after Cataract extraction/IOL both eyes. Follow up for dilated fundus exam both eyes in 3-4 mos with [facility]. I have confirmed and edited as necessary [...] 2022 1:49 PM documented in this encounter [facility] 12-13-2021 Instructions Moses Acevedo MD - [...] in vision occurs. documented in this encounter [facility] 12-13-2021 History of Present illness Narrative [...] exam both eyes in [facility] mos with [facility]. I have confirmed and edited as [...] 2021 8:59 AM documented in this encounter [facility] 12-07-2021 Instructions Moses Acevedo MD - [...] in vision occurs. documented in this encounter [facility] 12-07-2021 History of Present illness Narrative [...] 2021 9:22 AM documented in this encounter [facility] 12-06-2021 History of Past i llness [...] of this encounter (statuses as of 12/07/2021) [facility]05-17-2022 History of Past illness Narrative* Problem [...] of this encounter (statuses as of 12/13/2021) [facility]-17[facility]2022 History of Past illness Narrative* Problem [...] of this encounter (statuses as of 01/06/2022) [facility]2022 History of Past illness Narrative* Problem [...] of this encounter (statuses as of 04/06/2022) [facility] History of Past illness Narrative* Problem [...] of this encounter (statuses as of 04/11/2023) [facility] History of Past illness Narrative* Problem [...] of this encounter (statuses as of 10/26/2023) [facility]-13-2022 Miscellaneous Notes* Telephone Encounter - Gretchen Mario - 12/02/2021 11:13 AM EDT INTRAOCULAR LENS ORDER ATTN: [facility] / [facility] PATIENTS NAME: Dameon Potter SURGERY DATE: 12/06/2021 EYE: OD SURGEON: Moses Acevedo MD LENS: [employer] IQ MOVEMENT THERAPIST: Lei MODEL: [id number] POWER: + 16.5 ADDITIONAL NOTES: NO MOXIFLOXACIN OR CEFUROXIME due to allergies diabetes sleep apnea [facility] Miscellaneous Notes* Telephone Encounter - Gretchen Mario - 12/02/2021 10:44 AM EDT Called and informed patient to arrive at [address] [place] [address], [facility] [address] at 6:55 am for 12/06/21 surgery with Moses Acevedo MD. Also reminded patient to refrain from eating or drinking for 8 hours prior to arrival for surgery, and to begin eyedrops in the right eye on 12/04/21. Patient states understanding and is agreeable. [facility] Instructions* Patient Instructions* Moses Acevedo [...] change in vision occurs. [facility] History of Present illness Narrative* [...] edema, with long-term current use of insulin ([facility]) Comment: Discussed stable retinopathy both eyes. Plan: [...] 30, 2021 9:30 AM [facility] Instructions* Patient Instructions* Msoes Acevedo MD - 11/23/2021 8:50 AM EDT [...] three times a day. [facility] History of Present illness Narrative* Moses [...] redness pain or change in vision occurs. (H40.4531) Primary open angle glaucoma of both eyes, [...] 23, 2021 8:45 AM [facility] History of Past illness Narrative* Problem Noted Date Resolved Date Combined forms of age-related cataract of left e ye 11/22/2021 11/22/2021 NS (nuclear sclerosis), unspecified laterality 1 11/05/2018 Diabetes mellitus type 2, insulin dependent 10/2205/12/2019 Open-angle glaucoma, moderate stage 05/05/2015 05/12/2019 NS (nuclear sclerosis) 05/05/2015 7 PSC (posterior subcapsular cataract), bilateral 05/05/2015 05/22/2017 documented as of this encounter (statuses as of 11/23/2021) [facility] History of Past illness Narrative* Problem Noted Date Resolved Date Combined forms of age-related cataract of left e ye 11/22/2021 11/22/2021 NS (nuclear sclerosis), unspecified laterality 1 11/05/2018 Diabetes mellitus type 2, insulin dependent 10/2205/12/2019 Open-angle glaucoma, moderate stage 05/05/2015 05/12/2019 NS (nuclear sclerosis) 05/05/2015 7 PSC (posterior subcapsular cataract), bilateral 05/05/2015 05/22/2017 documented as of this encounter (statuses as of 11/30/2021) [facility] History of Past illness Narrative* Problem Noted Date Resolved Date Combined forms of age-related cataract of left e ye 11/22/2021 11/22/2021 NS (nuclear sclerosis), unspecified laterality 1 11/05/2018 Diabetes mellitus type 2, insulin dependent 10/2205/12/2019 Open-angle glaucoma, moderate stage 05/05/2015 05/12/2019 NS (nuclear sclerosis) 05/05/2015 7 PSC (posterior subcapsular cataract), bilateral 05/05/2015 05/22/2017 documented as of this encounter (statuses as of 12/02/2021) [facility] Miscellaneous Notes* Telephone Encounter - Gretchen Fabiano - 11/18/2021 8:09 AM EDT INTRAOCULAR LENS ORDER ATTN: [facility] / [facility] PATIENTS NAME: Dameon Potter SURGERY DATE: 11/22/2021 EYE: OS SURGEON: Moses Acevedo MD LENS: [employer] IQ MOVEMENT THERAPIST: Lei MODEL: [id number] POWER: + 15.5 ADDITIONAL NOTES: NO MOXIFLOXACIN OR CEFUROXIME due to allergies diabetes sleep apnea documented [facility] encounterL[facility] Miscellaneous Notes* Telephone Encounter - Gretchen Mario - 11/17/2021 2:38 PM EDT Attempted to contact patient to inform to arrive at [address] [facility], [place] [address] at 6:45 am for 11/22/21 surgery with Moses Acevedo MD, to refrain from eating or drinking for 8 hours prior to arrival for surgery, and to begin the eyedrops in the left eye on 11/20/21. Do not use prednisolone acetate until after surgery. Left message on machine to call with any questions or concerns. [facility] encounter[facility] Miscellaneous Notes* Telephone Encounter - Sarah Haddad - 10/21/2021 2:57 PM EDT Left voicemail to remind patient she has an appointment in our [place] office at [address] [facility], [address], on Sunday10/24/21 at 8:00 am and to call our office at [phone] if any questions or if unable to keep the appointment. [facility] encounterL[facility] History of Past illness Narrative* Problem Noted Date Resolved Date NS (nuclear sclerosis), unspecified laterality 1 11/05/2018 Diabetes mellitus type 2, insulin dependent 10/2205/12/2019 Open-angle glaucoma, moderate stage 05/05/2015 05/12/2019 NS (nuclear sclerosis) 05/05/2015 7 PSC (posterior subcapsular cataract), bilateral 05/05/2015 05/22/2017 documented as of this encounter (statuses as of 10/21/2021) [facility] of [facility] illness Narrative* Problem Noted Date Resolved Date NS (nuclear sclerosis), unspecified laterality 1 11/05/2018 Diabetes mellitus type 2, insulin dependent 10/2205/12/2019 Open-angle glaucoma, moderate stage 05/05/2015 05/12/2019 NS (nuclear sclerosis) 05/05/2015 7 PSC (posterior subcapsular cataract), bilateral 05/05/2015 05/22/2017 documented as of this encounter (statuses as of 11/17/2021) [facility] of [facility] illness Narrative* Problem Noted Date Resolved Date NS (nuclear sclerosis), unspecified laterality 1 11/05/2018 Diabetes mellitus type 2, insulin dependent 10/2205/12/2019 Open-angle glaucoma, moderate stage 05/05/2015 05/12/2019 NS (nuclear sclerosis) 05/05/2015 7 PSC (posterior subcapsular cataract), bilateral 05/05/2015 05/22/2017 documented as of this encounter (statuses as of 11/18/2021) [facility] Pseudophakia of left eye- [...] of senile cataract [facility] Diagnosis Pseudophakia of left eye- Primary Lens replaced by other means Combined forms of age-related cataract of both eyes Other and combined forms of senile cataract Combined forms of age-related cataract of both eyes Other and combined forms of senile cataract [facility]* Diagnosis Pseudophakia, both eyes- Primary Lens replaced by other means Combined forms of age-related cataract of both eyes Other and combined forms of senile cataract Primary open angle glaucoma of both eyes, mild stage 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 Tear film insufficiency, unspecified [facility]* Diagnosis Pseudophakia, both eyes- Primary Lens replaced by other means Combined forms of age-related cataract of both eyes Other and combined forms of senile cataract Primary open angle glaucoma of both eyes, mild stage 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 Tear film insufficiency, unspecified [facility] Diagnosis Pseudophakia, both eyes- Primary Lens [...] refraction and accommodation documented in this encounter [facility] note* Diagnosis 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 without macular edema, with long-term current use of insulin ([facility])- Primary Primary open angle glaucoma of both eyes, mild stage 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 Tear film insufficiency, unspecified [facility]* Diagnosis Arterial insufficiency with ischemic ulcer (CMS/HCC) ([facility]) [facility] Diagnosis Lymphedema- Primary Other noninfectious lymphedema [facility]* Diagnosis Endometrial cancer (CMS/HCC) (HCC)- Primary Malignant neoplasm of corpus uteri, except isthmus Malignant neoplasm of body of uterus, unspecified site ([facility]) [facility]* Diagnosis Lymphedema Other noninfectious lymphedema documented in this encounter [facility]* Diagnosis Lymphedema- Primary Other noninfectious lymphedema Generalized edema Edema [facility]* Diagnosis Lymphedema Other noninfectious lymphedema [facility]* Diagnosis Lymphedema Other noninfectious lymphedema documented in this encounter [facility]* Diagnosis Lymphedema- Primary Other noninfectious lymphedema [facility]* Diagnosis Type 2 diabetes mellitus with hyperglycemia, with long-term current use of insulin (CMS/HCC) (HCC)- Primary 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 without macular edema, with long-term current use of insulin ([facility]) Primary hypertension Unspecified essential hypertension Hyperlipidemia associated with type 2 diabetes mellitus ([facility]) Class 3 severe obesity due to excess calories with serious comorbidity and body mass index (BMI) of 45.0 to 49.9 in adult ([facility]) Acquired hypothyroidism Unspecified hypothyroidism Insulin resistance Other abnormal glucose documented in this encounter [facility] note* Diagnosis Lymphedema Other noninfectious lymphedema Generalized edema Edema documented in this encounter [facility] note* Diagnosis Lymphedema- Primary Other noninfectious lymphedema documented in this encounter [facility] note* Diagnosis Lymphedema- Primary Other noninfectious lymphedema documented in this encounter [facility] note* Diagnosis Endometrial cancer ([facility]/HCC) ([facility])- Primary Malignant neoplasm of corpus uteri, except isthmus [facility]* Diagnosis Lymphedema- Primary Other noninfectious lymphedema documented in this encounter [facility] note* Diagnosis Lymphedema Other noninfectious lymphedema documented in this encounter [facility] note* Diagnosis Uncontrolled type 2 diabetes mellitus with hyperglycemia, with long-term current use of insulin ([facility]) documented in this encounter [facility] note* Diagnosis Non-pressure chronic ulcer left lower leg, limited to breakdown skin ([facility])- Primary documented in this encounter [facility] note* Diagnosis Primary open angle glaucoma of both eyes, mild stage- Primary 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 and macular edema, without long-term current use of insulin ([facility]) 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 Tear film insufficiency, unspecified Refractive error Unspecified disorder of refraction and accommodation Dermatochalasis of upper and lower eyelids of both eyes documented [facility]* Diagnosis Non-pressure chronic ulcer left lower leg, 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)- Primary documented in this encounter [facility] note* Diagnosis Non-pressure chronic ulcer left lower leg, 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)- Primary Lymphedema Other noninfectious lymphedema [facility]* Diagnosis Lymphedema Other noninfectious lymphedema documented in this encounter [facility] note* Diagnosis Lymphedema- Primary Other noninfectious lymphedema [facility]* Diagnosis 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 Type 2 diabetes mellitus with hyperglycemia, with long-term current use of insulin ([facility]) Mixed hyperlipidemia Primary hypertension Unspecified essential hypertension [facility]* Diagnosis Lymphedema- Primary Other noninfectious lymphedema [facility]* Diagnosis Lymphedema Other noninfectious lymphedema documented in this encounter [facility] note* Diagnosis Lymphedema- Primary Other noninfectious lymphedema documented in this encounter [facility] note* Diagnosis Lymphedema Other noninfectious lymphedema [facility]* Diagnosis Lymphedema Other noninfectious lymphedema documented in this encounter [facility] note* Diagnosis Lymphedema Other noninfectious lymphedema [facility]* Diagnosis Endometrial cancer (CMS/HCC) (HCC)- Primary Malignant neoplasm of corpus uteri, except isthmus [facility]* Diagnosis Lymphedema Other noninfectious lymphedema documented in this encounter [facility] note* Diagnosis Lymphedema- Primary Other noninfectious lymphedema documented in this encounter [facility] note* Diagnosis Lymphedema- Primary Other noninfectious lymphedema Generalized edema Edema documented in this encounter [facility] note* Diagnosis Primary open angle glaucoma of both eyes, mild stage- Primary 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 Tear film insufficiency, unspecified Cortical cataract of both eyes Unspecified cataract [facility]* Diagnosis Endometrial cancer (CMS/HCC) (HCC)- Primary Malignant neoplasm of corpus uteri, except isthmus Malignant neoplasm of body of uterus, unspecified site ([facility]) documented in this encounter [facility] note* Diagnosis Type 2 diabetes mellitus with hyperglycemia, with long-term current use of insulin (HCC)- Primary Primary hypertension Unspecified essential hypertension Hyperlipidemia associated with type 2 diabetes mellitus (HCC) (HCC) Class 3 severe obesity due to excess calories with serious comorbidity and body mass index (BMI) of 45.0 to 49.9 in adult ([facility]) Acquired hypothyroidism Unspecified hypothyroidism Insulin resistance Other abnormal glucose 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 and macular edema, with long-term current use of insulin ([facility]) [facility]* Diagnosis Lymphedema- Primary Other noninfectious lymphedema [facility]* Diagnosis Hypertensive retinopathy, bilateral- Primary 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 macular edema, with long-term current use of insulin ([facility]) [facility]* Diagnosis Lymphedema of both lower extremities documented in this encounter [facility] note* Diagnosis Endometrial cancer (CMS/HCC) (HCC) Malignant neoplasm of corpus uteri, except isthmus [facility]* Diagnosis Lymphedema- Primary Other noninfectious lymphedema documented in this encounter [facility] note* Diagnosis Lymphedema Other noninfectious lymphedema documented in this encounter [facility] note* Diagnosis Lymphedema- Primary Other noninfectious lymphedema documented in this encounter [facility] note* Diagnosis Lymphedema Other noninfectious lymphedema documented in this encounter [facility] note* Diagnosis Lymphedema of both lower extremities- Primary [facility]* Diagnosis Lymphedema of both lower extremities documented in this encounter [facility] note* Diagnosis Vaginal discharge- Primary Leukorrhea, not specified as infective Endometrial cancer (CMS/HCC) (HCC) Malignant neoplasm of corpus uteri, except isthmus Obesity with body mass index greater than 30 Lymphedema Other noninfectious lymphedema Malignant neoplasm of body of uterus, unspecified site ([facility]) documented in this encounter [facility] note* Diagnosis Essential (primary) hypertension Unspecified essential hypertension Cardiac murmur, unspecified [facility]* Diagnosis Lymphedema of both lower extremities- Primary [facility]* Diagnosis Type 2 diabetes mellitus with hyperglycemia, with long-term current use of insulin ([facility])- Primary Primary hypertension Unspecified essential hypertension Hyperlipidemia associated with type 2 diabetes mellitus (HCC) ([facility]) Class 3 severe obesity due to excess calories with serious comorbidity and body mass index (BMI) of 40.0 to 44.9 in adult ([facility]) Acquired hypothyroidism Unspecified hypothyroidism Insulin resistance Other abnormal glucose documented in this encounter [facility] note* Diagnosis Lymphedema of both lower extremities [facility]* Diagnosis Primary open angle glaucoma of both eyes, mild stage- Primary 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 macular edema, with long-term current use of insulin ([facility]) 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 Tear film insufficiency, unspecified Refractive error Unspecified disorder of refraction and accommodation Dermatochalasis of upper and lower eyelids of both eyes [facility] Diagnosis Lymphedema Other noninfectious lymphedema [facility] Diagnosis Essential (primary) hypertension- Primary Unspecified essential hypertension Cardiac murmur, unspecified Essential (primary) hypertension Unspecified essential hypertension Cardiac murmur, unspecified [facility] Diagnosis Lymphedema- Primary Other noninfectious lymphedema [facility] Diagnosis Endometrial cancer ([facility]) ([facility])- Primary Malignant neoplasm of corpus uteri, except isthmus [facility]* Diagnosis Lymphedema- Primary Other noninfectious lymphedema [facility] Diagnosis Lymphedema [I89.0 (ICD-10-CM)] Other noninfectious lymphedema [facility]* Diagnosis Hyperglycemia- Primary Other abnormal glucose Hyperglycemia Other abnormal glucose Acute cystitis with hematuria RADHA (obstructive sleep apnea) Obstructive sleep apnea (adult) (pediatric) Acute on chronic diastolic heart failure (HCC) Acute on chronic diastolic heart failure Persistent atrial fibrillation (HCC) Atrial fibrillation Delirium Other alteration of consciousness Debility Unspecified debility Memory loss Declining functional status Weight loss Loss of weight Severe malnutrition (CMS/[facility]) (HCC) Nutritional marasmus [facility] Diagnosis Persistent atrial fibrillation (HCC)- Primary Atrial fibrillation Type 2 diabetes mellitus with hyperglycemia, with long-term current use of insulin (HCC) Cognitive decline Debility Unspecified debility Essential hypertension, benign Moderate aortic stenosis Aortic valve disorders Mixed hyperlipidemia Primary open angle glaucoma of both eyes, mild stage Acquired hypothyroidism Unspecified hypothyroidism Vitamin D deficiency [facility] Diagnosis Persistent atrial fibrillation (HCC)- Primary Atrial fibrillation Type 2 diabetes mellitus with hyperglycemia, with long-term current use of insulin ([facility]) Cognitive decline Debility Unspecified debility Essential hypertension, [...] moderate Mixed hyperlipidemia documented in this encounter [facility]* Diagnosis Persistent atrial fibrillation (HCC)- [...] of nonorganic origin documented in this encounter [facility]* Diagnosis Persistent atrial fibrillation (HCC)- [...] isthmus Other amnesia documented in this encounter [facility]* Diagnosis Persistent atrial fibrillation (HCC)- [...] Vitamin D deficiency [facility]* Diagnosis Persistent atrial fibrillation (HCC)- [...] both lower extremities documented in this encounter [facility]* Diagnosis Persistent atrial fibrillation (HCC)- [...] moderate Mixed hyperlipidemia documented in this encounter [facility]* Diagnosis Persistent atrial fibrillation (HCC)- [...] of insulin (HCC) documented in this encounter [facility] note* Diagnosis Persistent atrial fibrillation (HCC)- Primary [...] not elsewhere classified documented in this encounter [facility]Evaluation note* Diagnosis Persistent atrial fibrillation (HCC)- [...] not elsewhere classified documented in this encounter [facility]Evaluation note* Diagnosis Persistent atrial fibrillation (HCC)- [...] not elsewhere classified documented in this encounter [facility] note* Diagnosis Persistent atrial fibrillation (HCC)- [...] uteri, except isthmus [facility] Diagnosis Persistent atrial fibrillation (HCC)- Primary [...] uteri, except isthmus documented in this encounter [facility] note* Diagnosis Abnormal weight loss- Primary [...] of insulin (HCC) [facility] Diagnosis Persistent atrial fibrillation (HCC)- Primary [...] underlying condition (HCC) documented in this encounter [facility] for visit Narrative* Imaging (Routine) - Closed Specialty Diagnoses / Procedures Referred By Contac t Referred To Contact Radiology Diagnoses Abnormal weight loss Other malaise Malignant neoplasm of endometrium (HCC) Other amnesia Procedures CT head w and wo IV contrast Christy Leach MD [address] [facility] [address] [place] [address] Phone: tel: fax: Referral ID Status Reason Start Date Expiration Date Visits Re quested Visits Authorized [id number] Closed 10/27/2024 10/27/2025 1 1 [facility] for visit Narrative* Imaging (Routine) - Closed Specialty Diagnoses / Procedures Referred By Contac t Referred To Contact Radiology Diagnoses Abnormal weight loss Other malaise Malignant neoplasm of endometrium (HCC) Other amnesia Procedures CT chest abdomen pelvis with contrast Christy Leach MD [address] [facility] [address] [place] [address] Phone: tel: fax: Referral ID Status Reason Start Date Expiration Date Visits Re quested Visits Authorized [id number] Closed 10/27/2024 10/27/2025 1 1 [facility] for visit Narrative* Imaging (Routine) - Closed Specialty Diagnoses / Procedures Referred By Contac t Referred To Contact Radiology Diagnoses Endometrial cancer (CMS/HCC) (HCC) Multiple lung nodules Procedures CT guided biopsy abdomen or retroperitoneum Cuauhtemoc Stubbs MD [address] [facility] [address] [place] [address] Phone: tel: fax: Referral ID Status Reason Start Date Expiration Date Visits Re quested Visits Authorized [id number] Closed 12/10/2024 12/10/2025 [facility] ([facility] - Closed Specialty Diagnoses / Procedures Referred By Elias piedra Referred To Contact Radiology Diagnoses Multiple lung nodules Endometrial cancer (CMS/HCC) (HCC) Procedures PET/CT skull base to mid thigh Cuauhtemoc Stubbs MD [address] [facility] [address] [place] [address] Phone: tel: fax: [facility] [address] [place] [address] Phone: tel: Referral ID Status Reason Start Date Expiration Date Visits Re quested Visits Authorized [id number] Closed 12/23/2024 12/23/2025 1 1 [facility] Advance Directives Documents on File Type Date Recorded Patient Whale Fisherman Expl anation ACP-Advance Directive 02/05/2018 9:43 AM [...] Documents on File Type Date Recorded Patient Whale Fisherman Expl anation Advance Directives and Livin g Will Advance Directives and Livin g Will 02/05/2018 9:43 AM Power of Glove Pairer Latest Code Status on File Code Status Date Activated Date Inactivated Comments Full Code 01/30/2018 9:44 AM 02/01/2018 8:47 PM Full Code 03/20/2017 10:43 AM 03/20/2017 3:27 PM Documents on File Type Date Recorded Patient Whale Fisherman Expl anation ACP-Advance Directive ACP-Advance Directive 02/05/2018 9:43 AM ACP-Power of Glove Pairer Latest Code Status on File Code Status Date Activated Date Inactivated Comments Full Code 09/30/2020 3:48 PM Documents on File Type Date Recorded Patient Whale Fisherman Expl anation ACP-Advance Directive ACP-Advance Directive 02/05/2018 9:43 AM ACP-Power of Glove Pairer Latest Code Status on File Code Status Date Activated Date Inactivated Comments Full Code 09/30/2020 3:48 PM 10/01/2020 8:11 PM Full Code 09/30/2020 5:36 AM 09/30/2020 3:24 PM Full Code 01/30/2018 9:44 AM 02/01/2018 8:47 PM Full Code 01/29/2018 9:19 PM 01/30/2018 9:44 AM Full Code 01/29/2018 9:51 AM 01/29/2018 8:58 PM Documents on File Type Date Recorded Patient Whale Fisherman Expl anation ACP-Advance Directive ACP-Power of Glove Pairer ACP-Advance Directive 02/05/2018 9:43 AM Documents on File Type Date Recorded Patient Whale Fisherman Expl anation Advance Directive(s) 09/03/2020 6:43 AM Advance Directive(s) 09/03/2020 6:45 AM Documents on File Type Date Recorded Patient Whale Fisherman Expl anation Advance Directive(s) 11/22/2021 6:39 AM Advance Directive(s) 09/03/2020 6:43 AM Advance Directive(s) 09/03/2020 6:45 AM Documents on File Type Date Recorded Patient Whale Fisherman Expl anation Advance Directive(s) 12/06/2021 6:45 AM [...] Documents on File Type Date Recorded Patient Whale Fisherman Expl anation Power of Glove Pairer 05/11/2025 6:50 PM Advance Directives and Livin g Will 05/11/2025 6:50 PM DNR (Do Not Resuscitate) 05/19/2025 2:11 PM [place] DNR Form Date Activated Date Inactivated Comments [...] Records Found Procedure Findings Note HNO ID: [id number] Author: Haile olmedo (Amaury Ore Crushing Dust Collector) Marvin Service: Anesthesiology Author Type: Nurse Safety Equipment Testing Specialist Type: Anesthesia Procedure Notes Filed: 09/03/2020 8:29 AM Note Text: ANESTHESIOLOGY PROCEDURE NOTE Airway General Information Procedure Start Time/Medication Administration: 09/03/2020 8:05 AM Patient location during procedure: OR Timeout Performed Pre-procedure: timeout performed Consent Obtained: Yes Patient identity confirmed: arm band Staffing ARMHOLE BASTER JUMPBASTING: Alejandra Burden Ore Crushing Dust Collector) Marvin Performed by: ARMHOLE BASTER JUMPBASTING Indications and Patient Condition Preoxygenated: yes Patient [...] Coleman RN - 09/23/2020 Please bring your [facility] Surgical Information folder on the day of [...] FIVE DAYS PRIOR TO SURGERY Additional instructions: G shower kit and instructions given to patient. Please remember to use half the bottle the night before surgery and half the bottle the day of surgery. Clean sheets and clothes should be used after each use. If you have specific questions, please call your surgeon. * Attachments The following attachments cannot be sent through Care Everywhere. * Laparoscopic Hysterectomy: Pre-op (Macanese) * Laparoscopic Hysterectomy: Post-op (Macanese) documented in this encounter* Instructions* Gloria Giraldo MD - 10/01/2020 Please see discharge instructions provided in the office. * Attachments The following attachments cannot be sent through Care Everywhere. * Hysterectomy: Abdominal: Post-op (Macanese) * Hysterectomy: General Info (Macanese) * ibuprofen (Macanese) * oxycodone (Macanese) * Diabetes: Type 2: Metformin: General Info (Macanese) documented in this encounter Hospital Course * Cuauhtemoc Stubbs MD - 10/01/2020 7:16 AM EST Images from the original note were not included. 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 Date: 10/01/2020 Time: 6:03 AM [...] 97% 96% Weight: Height: Intake/Output: Last Shift: @[id number]@ Current Shift: I/O this shift: In: - [...] 10 mL Intravenous 2 times per day Rashaad Crawley, DO sodium chloride flush 0.9 % injection 10 mL 10 mL Intravenous PRN Rashaad E Denisa, DO acetaminophen (TYLENOL) tablet 650 mg 650 mg Oral Q4H PRN [place] E Denisa, DO oxyCODONE (ROXICODONE) immediate release tablet 5 mg 5 mg Oral Q4H PRN [facility], DO Or oxyCODONE (ROXICODONE) immediate release tablet 10 mg 10 mg Oral Q4H PRN [place] E Denisa, DO promethazine (PHENERGAN) tablet 12.5 mg 12.5 mg Oral Q6H PRN [facility], DO Or ondansetron (ZOFRAN) injection 4 mg 4 mg Intravenous Q6H PRN [place] E Denisa, DO ibuprofen (ADVIL;MOTRIN) tablet 600 mg 600 mg Oral Q6H [facility], DO 600 mg at 10/01/20 0517 bisacodyl (DULCOLAX) EC tablet 5 mg 5 mg Oral Daily [facility], DO insulin lispro (HUMALOG) injection vial 0-18 Units 0-18 Units Subcutaneous 4x Daily [facility], DO 15 Units at 09/30/20 1902 glucose (GLUTOSE) 40 % oral gel 15 g 15 g Oral PRN [facility], DO dextrose 50 % IV solution 12.5 g Intravenous PRN [facility], DO glucagon (rDNA) injection 1 mg 1 mg Intramuscular PRN [facility], DO dextrose 5 % solution 100 mL/hr Intravenous PRN [facility], DO hydrALAZINE (APRESOLINE) injection 10 mg 10 mg Intravenous Q4H PRN [facility], DO 10 mg at 09/30/20 1802 carvedilol (COREG) tablet 6.25 mg 6.25 mg Oral BID [facility], DO 6.25 mg at 09/30/20 1802 insulin regular human (humuLIN R U-500 KWIKPEN) 500 UNIT/ML concentrated injection pen 50 Units 50 Units Subcutaneous QAM AC Tiffani Robison MD Diagnostics: No results found. Labs: Admission on 09/30/2020 Component Date Value Ref Range Status POC Glucose 09/30/2020 330* 70 - 100 mg/dL Final Comment: Test performed by glucose meter. Results may be 10%-15% lower than serum/plasma values. (CLIA ID [id number]) POC Glucose 09/30/2020 343* 70 - 100 mg/dL Final Comment: Test performed by glucose meter. Results may be 10%-15% lower than serum/plasma values. (CLIA ID [id number]) POC Glucose 09/30/2020 317* 70 - 100 mg/dL Final Comment: Test performed by glucose meter. Results may be 10%-15% lower than serum/plasma values. (CLIA ID [id number]) POC Glucose 09/30/2020 379* 70 - 100 mg/dL Final Comment: Test performed by glucose meter. Results may be 10%-15% lower than serum/plasma values. (CLIA ID [id number]) POC Glucose 09/30/2020 308* 70 - 100 mg/dL Final Comment: Test performed by glucose meter. Results may be 10%-15% lower than serum/plasma values. (CLIA ID [id number]) POC Glucose 09/30/2020 288* 70 - 100 mg/dL Final Comment: Test performed by glucose meter. Results may be 10%-15% lower than serum/plasma values. (CLIA ID [id number]) POC Glucose 09/30/2020 366* 70 - 100 mg/dL Final Comment: Test performed by glucose meter. Results may be 10%-15% lower than serum/plasma values. (CLIA ID [id number]) POC Glucose 09/30/2020 388* 70 - 100 mg/dL Final Comment: Test performed by glucose meter. Results may be 10%-15% lower than serum/plasma values. (CLIA ID [id number]) POC Glucose 09/30/2020 355* 70 - 100 mg/dL Final Comment: Test performed by glucose meter. Results may be 10%-15% lower than serum/plasma values. (CLIA ID [id number]) POC Glucose 10/01/2020 341* 70 - 100 mg/dL Final Comment: Test performed by glucose meter. Results may be 10%-15% lower than serum/plasma values. (CLIA ID [id number]) ] Assessment/Plan: Dameon Potter 65 y.o. female [...] Problems: * No resolved hospital problems. * lGoria Giraldo MD 10/01/2020, 6:03 AM Associated attestation - Cuauhtemoc Stubbs MD - 10/01/2020 11:15 AM EST Patient rounded with the residents. Doing well. Discussed surgical findings and technically difficult surgery. Okay to discharge to home. * Alida Gates RN - 09/30/2020 6:52 PM EST PERFECT SERVED PRIMARY FOR SSI ORDERS, SOZ=[id number] * Claudette Christianson RN - 09/30/2020 10:30 AM EST Notified ARMHOLE BASTER JUMPBASTING of OTBS 308. 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 [place] [address] Referral ID Status Reason Start Date Expiration Date V isits Requested Visits Authorized [id number] Pending Review 11/01/2023 10/31/2024 1 1 Specialty Diagnoses / Procedures Referred By Contac t Referred To Contact Radiology Diagnoses Endometrial cancer (CMS/HCC) (HCC) Procedures CT abdomen pelvis w contrast Frandy, Anjana, CLINICAL PROGRAMMER - CRISIS COUNSELOR [address] [place] [address] [facility] [address] [facility] [address] [place] [address] Referral ID Status Reason Start Date Expiration Date Visits Re quested Visits Authorized [id number] Closed 11/01/2023 10/31/2024 1 1 Specialty Diagnoses / Procedures Referred By Contac t Referred To Contact Cardiology Diagnoses Essential (primary) hypertension Cardiac murmur, unspecified Procedures Transthoracic echocardiogram (TTE) complete with contrast, bubble, strain, and 3D PRN RI ECHO TTHRC R-T 2D W/WOM-MODE COMPL SPEC&COLR D RI TTE W OR WO FOL WCON,DOPPLER Dom Jovon, Christy Gill MD [address] [facility] [address] [place] [address] [facility] Non-Invasive Cardiology [address] [facility] [address] [place] [address] Referral ID Status Reason Start Date Expiration Date Visits Re quested Visits Authorized [id number] Closed 02/28/2024 02/27/2025 1 1 Medications Administered [...] on Sun12/07/21 at 0830, Until Sun12/07/21 at 2028, Administer for applanation tonometry. In the event of a Fluress shortage, administer Petersburg-Fluor 1 drop into both eyes as directed [...] the event of a Fluress shortage, administer [place]-Fluor 1 drop into both eyes as directed [...] the event of a Fluress shortage, administer [place]-Fluor 1 drop into both eyes as directed [...] the event of a Fluress shortage, administer Petersburg-Fluor 1 drop into both eyes as directed for applanation tonometry, [facility] MED ORDERS Given 04/06/2022 1:10 PM EDT 1 Drop PHENYLephrine 2.5 % 1 Drop (AK-DILATE, ROSLYN-SYNEPHRINE) 1 Drop, BOTH EYES, DIRECTED, Starting on Sabina 04/06/22 at 1308, Until Sun04/07/22 at 0107, Administer for dilation PROTECT FROM LIGHT, [facility] CLINIC MED ORDERS Given 04/06/2022 1:10 PM EDT 1 Drop tropicamide 1 % 1 Drop (MYDRIACYL) 1 Drop, BOTH EYES, DIRECTED, Starting on Sabina 04/06/22 at 1308, Until Sun04/07/22 at 0107, [...] a Fluress shortage, administer 1 drop of Yolanda-Fluor into both eyes as directed for applanation [...] section and content) DATE CREATED AUTHOR 09/11/2020 [facility] DATE CREATED AUTHOR AUTHOR'S ORGANIZ ATION 01/12/2021 [facility] DATE CREATED AUTHOR AUTHOR'S ORGANIZ ATION 12/09/2021 [facility] DATE CREATED AUTHOR AUTHOR'S ORGANIZ ATION 05/15/2022 [facility] DATE CREATED AUTHOR AUTHOR'S ORGANIZ ATION 05/10/2024 [facility] DATE CREATED AUTHOR AUTHOR'S ORGANIZ ATION 09/25/2024 [facility] DATE CREATED AUTHOR AUTHOR'S ORGANIZ ATION 05/21/2025 [facility] Ordered Prescriptions (unrec ognized section and content) [...] Care Teams (unrecognized sec tion and content) Control Operator Relationship Specialty Start Date End Date Christy Leach MD [address] [facility], [address] [place] [address] PCP - General 01/01/15 Control Operator Relationship Specialty [place] [address] [place] [address], [address] [place] [phone] PCP - General 01/01/15 Control Operator Relationship Specialty Start Date End Date Christy Leach MD [address] [facility] [place] [address] PCP - General 01/01/15 Control Operator Relationship Specialty Start Date End Date Christy Mendez Jr. [address] [place] [address] PCP - General Family Practice 09/16/21 Control Operator Relationship Specialty Start Date End Date Christy Leach MD [address] [facility] [place] [address] PCP - General 01/01/15 Control Operator Relationship Specialty Start Date End Date Christy Mendez Jr. [address] [place] [address] PCP - General Family Practice 09/16/21 Control Operator Relationship Specialty Start Date End Date Christy Mendez Jr. [address] [place] [address] PCP - General Family Practice 09/16/21 Control Operator Relationship Specialty Start Date End Date Chrsity Mendez Jr. [address] [place] [address] PCP - General Family Practice 09/16/21 Control Operator Relationship Specialty Start Date End Date Christy Mendez Jr. [address] [place] [address] PCP - General Family Practice 09/16/21 Control Operator Relationship Specialty Start Date End Date Christy Leach MD [address] [facility], [address] [place] [address] PCP - General 01/01/15 Control Operator Relationship Specialty Start Date End Date Christy Mendez Jr. [address] [facility] [address] [place] [address] PCP - General Family Practice 09/16/21 Control Operator Relationship Specialty Start Date End Date Christy Mendez [address] [facility] [address] [place] [address] PCP - General Family Practice 09/16/21 Control Operator Relationship Specialty Start Date End Date Christy Leach MD [address] [facility], [address] [place], [place] [address] PCP - General 01/01/15 Control Operator Relationship Specialty Start Date End Date Christy Leach MD [address] [facility], [address] [place], [place] [address] PCP - General 01/01/15 Control Operator Relationship Specialty Start Date End Date Christy Leach MD [address] [facility] [address] [place] [address] PCP - General 01/01/15 Control Operator Relationship Specialty Start Date End Date Christy Leach MD [address] [facility] [address] [place] [address] PCP - General 01/01/15 Control Operator Relationship Specialty Start Date End Date Christy Leach MD [address] [facility] [address] [place] [address] PCP - General 01/01/15 Control Operator Relationship Specialty Start Date End Date Christy Leach MD [address] [facility] [address] [place] [address] PCP - General 01/01/15 Jaqueline Grayson, CLINICAL PROGRAMMER - CRISIS COUNSELOR [address] [address] Nurse Practitioner Certified Nurse Practitioner 11/03/22 Control Operator Relationship Specialty Start Date End Date Christy Leach MD [address] [facility] [address] [place] [address] PCP - General 01/01/15 Jaqueline Grayson, CLINICAL PROGRAMMER - CRISIS COUNSELOR [address] [address] Nurse Practitioner Certified Nurse Practitioner 11/03/22 Control Operator Relationship Specialty Start Date End Date Christy Leach MD [address] [facility] [address] [place] [address] PCP - General 01/01/15 Jaqueline Grayson, CLINICAL PROGRAMMER - CRISIS COUNSELOR [address] [address] Nurse Practitioner Certified Nurse Practitioner 11/03/22 Control Operator Relationship Specialty Start Date End Date Christy Leach MD [address] [facility] [address] [place] [address] PCP - General 01/01/15 Jaqueline Grayson, CLINICAL PROGRAMMER - CRISIS COUNSELOR [address] [address] Nurse Practitioner Certified Nurse Practitioner 11/03/22 Control Operator Relationship Specialty Start Date End Date Christy Leach MD [address] [facility] [address] [place] [address] PCP - General 01/01/15 Jaqueline Grayson, CLINICAL PROGRAMMER - CRISIS COUNSELOR [address] [address] Nurse Practitioner Certified Nurse Practitioner 11/03/22 Control Operator Relationship Specialty Start Date End Date Christy Leach MD [address] [facility] [address] [place] [address] PCP - General 01/01/15 Jaqueline Grayson, CLINICAL PROGRAMMER - CRISIS COUNSELOR [address] [place] [address] Nurse Practitioner Certified Nurse Practitioner 11/03/22 Control Operator Relationship Specialty Start Date End Date Christy Leach MD [address] [facility] [address] [place] [address] PCP - General 01/01/15 Jaqueline Grayson, CLINICAL PROGRAMMER - CRISIS COUNSELOR [address] [place] [address] Nurse Practitioner Certified Nurse Practitioner 11/03/22 Control Operator Relationship Specialty Start Date End Date Christy Leach MD [address] [facility] [address] [place] [address] PCP - General 01/01/15 Jaqueline Grayson, CLINICAL PROGRAMMER - CRISIS COUNSELOR [address] [place] [address] Nurse Practitioner Certified Nurse Practitioner 11/03/22 Control Operator Relationship Specialty Start Date End Date Christy Leach MD [address] [facility] [address] [place] [address] PCP - General 01/01/15 Jaqueline Grayson, CLINICAL PROGRAMMER - CRISIS COUNSELOR [address] [place] [id number] Nurse Practitioner Certified Nurse Practitioner 11/03/22 Control Operator Relationship Specialty Start Date End Date Christy Leach MD [address] [facility] [address] [place] [address] PCP - General 01/01/15 Jaqueline Grayson APRN - CRISIS COUNSELOR [address] [place] [address] Nurse Practitioner Certified Nurse Practitioner 11/03/22 Control Operator Relationship Specialty Start Date End Date Christy Leach MD [address] [facility] [address] [place] [address] PCP - General 01/01/15 Jaqueline Grayson CLINICAL PROGRAMMER - CRISIS COUNSELOR [address] [place] [address] Nurse Practitioner Certified Nurse Practitioner 11/03/22 Control Operator Relationship Specialty Start Date End Date Christy Mendez Jr., MD [address] [facility] [address] [place] [address] PCP - General Family Medicine 09/16/21 Control Operator Relationship Specialty Start Date End Date Christy Leach MD [address] [facility] [address] [place] [address] PCP - General 01/01/15 Jaqueline Grayson APRN - CRISIS COUNSELOR [address] [place] [address] Nurse Practitioner Certified Nurse Practitioner 11/03/22 Control Operator Relationship Specialty Start Date End Date Christy Leach MD [address] [place] [phone] PCP - General 01/01/15 Jaqueline Grayson, CLINICAL PROGRAMMER - CRISIS COUNSELOR [address] [place] [address] Nurse Practitioner Certified Nurse Practitioner 11/03/22 Control Operator Relationship Specialty Start Date End Date Christy Leach MD [address] [facility] [address] [place] [address] PCP - General 01/01/15 Jaqueline Grayson, CLINICAL PROGRAMMER - CRISIS COUNSELOR [address] [place] [address] Nurse Practitioner Certified Nurse Practitioner 11/03/22 Control Operator Relationship Specialty Start Date End Date Christy Leach MD [address] [facility] [address] [place] [address] PCP - General 01/01/15 Jaqueline Grayson, CLINICAL PROGRAMMER - CRISIS COUNSELOR [address] [place] [address] Nurse Practitioner Certified Nurse Practitioner 11/03/22 Control Operator Relationship Specialty Start Date End Date Christy Leach MD [address] [facility] [address] [place] [address] PCP - General 01/01/15 Jaqueline Grayson, CLINICAL PROGRAMMER - CRISIS COUNSELOR [address] [place] [address] Nurse Practitioner Certified Nurse Practitioner 11/03/22 Control Operator Relationship Specialty Start Date End Date Chirsty Leach MD [address] [facility] [address] [place] [phone] PCP - General 01/01/15 Jaqueline Grayson, CLINICAL PROGRAMMER - CRISIS COUNSELOR [address] [place] [address] Nurse Practitioner Certified Nurse Practitioner 11/03/22 Control Operator Relationship Specialty Start Date End Date Christy Leach MD [address] [facility] [address] [place] [phone] PCP - General 01/01/15 Jaqueline Grayson, CLINICAL PROGRAMMER - CRISIS COUNSELOR [address] [facility] [address] [place] [address] Nurse Practitioner Certified Nurse Practitioner 11/03/22 Control Operator Relationship Specialty Start Date End Date Christy Leach MD [address] [facility] [address] [place] [phone] PCP - General 01/01/15 Jaqueline Grayson, CLINICAL PROGRAMMER - CRISIS COUNSELOR [address] [facility] [address] [place] [address] Nurse Practitioner Certified Nurse Practitioner 11/03/22 Control Operator Relationship Specialty Start Date End Date Christy Leach MD [address] [facility] [address] [place] [phone] PCP - General 01/01/15 Jaqueline Grayson, CLINICAL PROGRAMMER - CRISIS COUNSELOR [address] [place] [address] Nurse Practitioner Certified Nurse Practitioner 11/03/22 Control Operator Relationship Specialty Start Date End Date Christy Leach MD [address] [facility] [address] [place] [phone] PCP - General 01/01/15 Jaqueline Grayson, CLINICAL PROGRAMMER - CRISIS COUNSELOR [address] [place] [address] Nurse Practitioner Certified Nurse Practitioner 11/03/22 Control Operator Relationship Specialty Start Date End Date Christy Leach MD [address] [facility] [address] [place] [phone] PCP - General 01/01/15 Jaqueline Grayson, CLINICAL PROGRAMMER - CRISIS COUNSELOR [address] [facility] [address] [address] [place] [address] Nurse Practitioner Certified Nurse Practitioner 11/03/22 Control Operator Relationship Specialty Start Date End Date Christy Leach MD [address] [facility] [address] [place] [phone] PCP - General 01/01/15 Jaqueline Grayson, CLINICAL PROGRAMMER - CRISIS COUNSELOR [address] [facility] [address] [place] [address] Nurse Practitioner Certified Nurse Practitioner 11/03/22 Control Operator Relationship Specialty Start Date End Date Christy Mendez Jr., MD [address] [facility] [address] [place] [phone] PCP - General Family Medicine 09/16/21 Control Operator Relationship Specialty Start Date End Date Christy Leach MD [address] [place] [phone] PCP - General 01/01/15 Jaqueline Grayson APRN - SAMUEL [address] [place] [address] Nurse Practitioner Certified Nurse Practitioner 11/03/22 Anjana Meadows APRN - SAMUEL [address] [place] [address] Nurse Practitioner Nurse Practitioner 11/01/23 Control Operator Relationship Specialty Start Date End Date Christy Leach MD [address] [place] [phone] PCP - General 01/01/15 Jaqueline Grayson APRN - CRISIS COUNSELOR [address] [place] [address] Nurse Practitioner Certified Nurse Practitioner 11/03/22 Anjana Meadows APRN - CRISIS COUNSELOR [address] [place] [address] Nurse Practitioner Nurse Practitioner 11/01/23 Cuauhtemoc Stubbs MD [address] [place] [address] Consulting Physician Gynecologic Oncology 11/05/23 Control Operator Relationship Specialty Start Date End Date Christy Leach MD [address] [facility] [address] [place] [phone] PCP - General 01/01/15 Jaqueline Grayson APRN - CRISIS COUNSELOR [address] [place] [address] Nurse Practitioner Certified Nurse Practitioner 11/03/22 Anjana Meadows APRN - SAMUEL [address] [facility] [address] [place] [address] Nurse Practitioner Nurse Practitioner 11/01/23 Control Operator Relationship Specialty Start Date End Date Christy Leach MD [address] [facility] [address] [place] [phone] PCP - General 01/01/15 Jaqueline Grayson APRN - CRISIS COUNSELOR [address] [facility] [address] [place] [address] Nurse Practitioner Certified Nurse Practitioner 11/03/22 Anjana Meadows APRN - CRISIS COUNSELOR [address] [facility] [address] [place] [address] Nurse Practitioner Nurse Practitioner 11/01/23 Cuauhtemoc Stubbs MD 161 [facility] [address] [place] [address] Consulting Physician Gynecologic Oncology 11/05/23 Control Operator Relationship Specialty Start Date End Date Christy Mendez Jr., MD 300[address] [facility] [address] [place] [phone] PCP - General Family Medicine 09/16/21 Control Operator Relationship Specialty Start Date End Date Christy Leach MD [address] [facility] [address] [place] [phone] PCP - General 01/01/15 Jaqueline Grayson APRN - CRISIS COUNSELOR [address] [place] [address] Nurse Practitioner Certified Nurse Practitioner 11/03/22 Anjana Meadows APRN - SAMUEL [address] [place] [address] Nurse Practitioner Nurse Practitioner 11/01/23 Cuauhtemoc Stubbs MD [address] [place] [address] Consulting Physician Gynecologic Oncology 11/05/23 Control Operator Relationship Specialty Start Date End Date Christy Leach MD [address] [place] [phone] PCP - General 01/01/15 Jaqueline Grayson APRN - CRISIS COUNSELOR [address] [place] [address] Nurse Practitioner Certified Nurse Practitioner 11/03/22 Anjana Meadows APRN - CRISIS COUNSELOR [address] [facility] [place] [address] Nurse Practitioner Nurse Practitioner 11/01/23 Cuauhtemoc Stubbs MD [address] [place] [address] Consulting Physician Gynecologic Oncology 11/05/23 Control Operator Relationship Specialty Start Date End Date Christy Leach MD [address] [place] [phone] PCP - General 01/01/15 Jaqueline Grayson APRN - CRISIS COUNSELOR [address] [place] [address] Nurse Practitioner Certified Nurse Practitioner 11/03/22 Anjana Meadows APRN - CRISIS COUNSELOR [address] [facility] [address] [place] [address] Nurse Practitioner Nurse Practitioner 11/01/23 Cuauhtemoc Stubbs MD [address] [facility] [address] [place] [address] Consulting Physician Gynecologic Oncology 11/05/23 Control Operator Relationship Specialty Start Date End Date Christy Leach MD [address] [place] [phone] PCP - General 01/01/15 Jaqueline Grayson CLINICAL PROGRAMMER - CRISIS COUNSELOR [address] [facility] [address] [place] [address] Nurse Practitioner Certified Nurse Practitioner 11/03/22 Anjana Meadows APRN - CRISIS COUNSELOR [address] [facility] [address] [place] [address] Nurse Practitioner Nurse Practitioner 11/01/23 Cuauhtemoc Stubbs MD [address] [facility] [address] [place] [address] Consulting Physician Gynecologic Oncology 11/05/23 Control Operator Relationship Specialty Start Date End Date Christy Leach MD [address] [place] [phone] PCP - General 01/01/15 Jaqueline Grayson, CLINICAL PROGRAMMER - CRISIS COUNSELOR [address] [facility] [address] [place] [address] Nurse Practitioner Certified Nurse Practitioner 11/03/22 Anjana Meadows APRN - CRISIS COUNSELOR [address] [facility] [address] [place] [address] Nurse Practitioner Nurse Practitioner 11/01/23 Cuauhtemoc Stubbs MD [address] [facility] [address] [address] [place] [address] Consulting Physician Gynecologic Oncology 11/05/23 Control Operator Relationship Specialty Start Date End Date Christy Leach MD [address] [place] [phone] PCP - General 01/01/15 Jaqueline Grayson APRN - CRISIS COUNSELOR [address] [facility] [address] [place] [address] Nurse Practitioner Certified Nurse Practitioner 11/03/22 Anjana Meadows APRN - CRISIS COUNSELOR [address] [facility] [place] [address] Nurse Practitioner Nurse Practitioner 11/01/23 Cuauhtemoc Stubbs MD [address] [facility] [address] [place] [address] Consulting Physician Gynecologic Oncology 11/05/23 Control Operator Relationship Specialty Start Date End Date Christy Leach MD [address] [place] [address] PCP - General 01/01/15 Jaqueline Grayson APRN - CRISIS COUNSELOR [address] [facility] [address] [place] [address] Nurse Practitioner Certified Nurse Practitioner 11/03/22 Anjana Meadows CLINICAL PROGRAMMER - CRISIS COUNSELOR [address] [facility] [address] [place] [address] Nurse Practitioner Nurse Practitioner 11/01/23 Cuauhtemoc Stubbs MD [address] [facility] [address] [place] [address] Consulting Physician Gynecologic Oncology 11/05/23 Control Operator Relationship Specialty Start Date End Date Christy Leach MD [address] [place] [phone] PCP - General 01/01/15 Jaqueline Grayson CLINICAL PROGRAMMER - CRISIS COUNSELOR [address] [facility] [address] [place] [address] Nurse Practitioner Certified Nurse Practitioner 11/03/22 Anjana Meadows CLINICAL PROGRAMMER - CRISIS COUNSELOR [address] [facility] [place] [address] Nurse Practitioner Nurse Practitioner 11/01/23 Cuauhtemoc Stubbs MD [address] [facility] [address] [place] [address] Consulting Physician Gynecologic Oncology 11/05/23 Control Operator Relationship Specialty Start Date End Date Christy Mendez Jr., MD [address] [place] [phone] PCP - General Family Medicine 09/16/21 Control Operator Relationship Specialty Start Date End Date Christy Leach MD [address] [place] [phone] PCP - General 01/01/15 Control Operator Relationship Specialty Start Date End Date Christy Leach MD [address] [facility] [address] [place] [phone] PCP - General 01/01/15 Control Operator Relationship Specialty Start Date End Date Christy Leach MD [address] [facility] [address] [place] [address] PCP - General 01/01/15 Control Operator Relationship Specialty Start Date End Date Christy Leach MD [address] [facility] [address] [place] [address] PCP - General 01/01/15 Control Operator Relationship Specialty Start Date End Date Christy Leach MD [address] [facility] [address] [place] [address] PCP - General 01/01/15 Control Operator Relationship Specialty Start Date End Date Christy Leach MD [address] [facility] [address] [place] [phone] PCP - General 01/01/15 Jaqueline Grayson CLINICAL PROGRAMMER - CRISIS COUNSELOR [address] [facility] [address] [place] [address] Nurse Practitioner Certified Nurse Practitioner 11/03/22 Anjana Meadows CLINICAL PROGRAMMER - CRISIS COUNSELOR [address] [facility] [place] [address] Nurse Practitioner Nurse Practitioner 11/01/23 Cuauhtemoc Stubbs MD [address] [facility] [address] [place], [place] [address] Consulting Physician Gynecologic Oncology 11/05/23 Control Operator Relationship Specialty Start Date End Date Christy Leach MD [address] [place] [phone] PCP - General 01/01/15 Jaqueline Grayson, CLINICAL PROGRAMMER - CRISIS COUNSELOR [address] [place] [address] Nurse Practitioner Certified Nurse Practitioner 11/03/22 Anjana Meadows CLINICAL PROGRAMMER - CRISIS COUNSELOR [address] [place] [address] Nurse Practitioner Nurse Practitioner 11/01/23 Cuauhtemoc Stubbs MD [address] [place] [address] Consulting Physician Gynecologic Oncology 11/05/23 Control Operator Relationship Specialty Start Date End Date Christy Leach MD [address] [place] [phone] PCP - General 01/01/15 Jaqueline Grayson CLINICAL PROGRAMMER - CRISIS COUNSELOR [address] [place] [address] Nurse Practitioner Certified Nurse Practitioner 11/03/22 Anjana Meadows CLINICAL PROGRAMMER - CRISIS COUNSELOR [address] [place] [address] Nurse Practitioner Nurse Practitioner 11/01/23 Cuauhtemoc Stubbs MD [address] [place] [address] Consulting Physician Gynecologic Oncology 11/05/23 Control Operator Relationship Specialty Start Date End Date Christy Leach MD [address] [facility] [address] [place] [phone] PCP - General 01/01/15 Jaqueline Grayson CLINICAL PROGRAMMER - CRISIS COUNSELOR [address] [place] [address] Nurse Practitioner Certified Nurse Practitioner 11/03/22 Anjana Meadows CLINICAL PROGRAMMER - CRISIS COUNSELOR [address] [place] [address] Nurse Practitioner Nurse Practitioner 11/01/23 Cuauhtemoc Stubbs MD [address] [place] [address] Consulting Physician Gynecologic Oncology 11/05/23 Control Operator Relationship Specialty Start Date End Date Christy Leach MD [address] [facility] [address] [place] [phone] PCP - General 01/01/15 Jaqueline Grayson, CLINICAL PROGRAMMER - CRISIS COUNSELOR [address] [place] [address] Nurse Practitioner Certified Nurse Practitioner 11/03/22 Anjana Meadows CLINICAL PROGRAMMER - CRISIS COUNSELOR [address] [place] [address] Nurse Practitioner Nurse Practitioner 11/01/23 Cuauhtemoc Stubbs MD [address] [place] [address] Consulting Physician Gynecologic Oncology 11/05/23 Control Operator Relationship Specialty Start Date End Date Christy Leach MD [address] [facility] [address] [place] [phone] PCP - General 01/01/15 Jaqueline Grayson, CLINICAL PROGRAMMER - CRISIS COUNSELOR [address] [place] [address] Nurse Practitioner Certified Nurse Practitioner 11/03/22 Anjana Meadows, CLINICAL PROGRAMMER - CRISIS COUNSELOR [address] [place] [address] Nurse Practitioner Nurse Practitioner 11/01/23 Cuauhtemoc Stubbs MD [address] [facility] [address] [place] [address] Consulting Physician Gynecologic Oncology 11/05/23 Control Operator Relationship Specialty Start Date End Date Christy Leach MD [address] [facility] [address] [place] [phone] PCP - General 01/01/15 Jaqueline Grayson, CLINICAL PROGRAMMER - CRISIS COUNSELOR [address] [place] [address] Nurse Practitioner Certified Nurse Practitioner 11/03/22 Anjana Meadows, CLINICAL PROGRAMMER - CRISIS COUNSELOR [address] [place] [address] Nurse Practitioner Nurse Practitioner 11/01/23 Cuauhtemoc Stubbs MD [address] [place] [address] Consulting Physician Gynecologic Oncology 11/05/23 Control Operator Relationship Specialty Start Date End Date Christy Leach MD [address] [place] [phone] PCP - General 01/01/15 Jaqueline Grayson CLINICAL PROGRAMMER - CRISIS COUNSELOR [address] [facility] [address] [place] [address] Nurse Practitioner Certified Nurse Practitioner 11/03/22 Anjana Meadows CLINICAL PROGRAMMER - CRISIS COUNSELOR [address] [facility] [address] [place] [address] Nurse Practitioner Nurse Practitioner 11/01/23 Cuauhtemoc Stubbs MD [address] [facility] [address] [place] [address] Consulting Physician Gynecologic Oncology 11/05/23 Control Operator Relationship Specialty Start Date End Date Christy Leach MD [address] [place] [phone] PCP - General 01/01/15 Jaqueline Grayson CLINICAL PROGRAMMER - CRISIS COUNSELOR [address] [facility] [address] [place] [address] Nurse Practitioner Certified Nurse Practitioner 11/03/22 Anjana Meadows CLINICAL PROGRAMMER - CRISIS COUNSELOR [address] [facility] [address] [place] [address] Nurse Practitioner Nurse Practitioner 11/01/23 Cuauhtemoc Stubbs MD [address] [facility] [address] [place] [address] Consulting Physician Gynecologic Oncology 11/05/23 Control Operator Relationship Specialty Start Date End Date Christy Leach MD [address] [place] [phone] PCP - General 01/01/15 Jaqueline Grayson CLINICAL PROGRAMMER - CRISIS COUNSELOR [address] [facility] [address] [place] [address] Nurse Practitioner Certified Nurse Practitioner 11/03/22 Anjana Meadows CLINICAL PROGRAMMER - CRISIS COUNSELOR [address] [facility] [address] [place] [address] Nurse Practitioner Nurse Practitioner 11/01/23 Cuauhtemoc Stubbs MD [address] [facility] [address] [place] [address] Consulting Physician Gynecologic Oncology 11/05/23 Control Operator Relationship Specialty Start Date End Date Christy Leach MD [address] [place] [phone] PCP - General 01/01/15 Jaqueline Grayson CLINICAL PROGRAMMER - CRISIS COUNSELOR [address] [facility] [address] [place] [address] Nurse Practitioner Certified Nurse Practitioner 11/03/22 Anjana Meadows CLINICAL PROGRAMMER - CRISIS COUNSELOR [address] [facility] [address] [place] [address] Nurse Practitioner Nurse Practitioner 11/01/23 Cuauhtemoc Stubbs MD [address] [facility] [address] [place] [address] Consulting Physician Gynecologic Oncology 11/05/23 Control Operator Relationship Specialty Start Date End Date Christy Leach MD [address] [place] [phone] PCP - General 01/01/15 Jaqueline Grayson APRN - CRISIS COUNSELOR [address] [facility] [address] [place] [address] Nurse Practitioner Certified Nurse Practitioner 11/03/22 Anjana Meadows APRN - CRISIS COUNSELOR [address] [facility] [place] [address] Nurse Practitioner Nurse Practitioner 11/01/23 Cuauhtemoc Stubbs MD [address] [facility] [address] [place] [address] Consulting Physician Gynecologic Oncology 11/05/23 Control Operator Relationship Specialty Start Date End Date Christy Leach MD [address] [place] [phone] PCP - General 01/01/15 Jaqueline Grayson APRN - CRISIS COUNSELOR [address] [facility] [address] [place] [address] Nurse Practitioner Certified Nurse Practitioner 11/03/22 Anjana Meadows APRN - CRISIS COUNSELOR [address] [facility] [address] [place] [address] Nurse Practitioner Nurse Practitioner 11/01/23 Cuauhtemoc Stubbs MD [address] [facility] [address] [place] [address] Consulting Physician Gynecologic Oncology 11/05/23 Control Operator Relationship Specialty Start Date End Date Christy Leach MD [address] [place] [phone] PCP - General 01/01/15 Jaqueline Grayson CLINICAL PROGRAMMER - CRISIS COUNSELOR [address] [place], [place] [address] Nurse Practitioner Certified Nurse Practitioner 11/03/22 Anjana Meadows CLINICAL PROGRAMMER - CRISIS COUNSELOR [address] [facility] [place] [address] Nurse Practitioner Nurse Practitioner 11/01/23 Cuauhtemoc Stubbs MD [address] [facility] [address] [place] [address] Consulting Physician Gynecologic Oncology 11/05/23 Control Operator Relationship Specialty Start Date End Date Christy Leach MD [address] [place] [phone] PCP - General 01/01/15 Jaqueline Grayson CLINICAL PROGRAMMER - CRISIS COUNSELOR [address] [facility] [address] [place], [place] [address] Nurse Practitioner Certified Nurse Practitioner 11/03/22 Anjana Meadows CLINICAL PROGRAMMER - CRISIS COUNSELOR [address] [facility] [address] [place] [address] Nurse Practitioner Nurse Practitioner 11/01/23 Cuauhtemoc Stubbs MD [address] [facility] [address] [place] [address] Consulting Physician Gynecologic Oncology 11/05/23 Control Operator Relationship Specialty Start Date End Date Christy Leach MD [address] [place] [phone] PCP - General 01/01/15 Jaqueline Grayson CLINICAL PROGRAMMER - CRISIS COUNSELOR [address] [place] [address] Nurse Practitioner Certified Nurse Practitioner 11/03/22 Anjana Meadows APRN - CRISIS COUNSELOR [address] [facility] [address] [place] [address] Nurse Practitioner Nurse Practitioner 11/01/23 Cuauhtemoc Stubbs MD [address] [place] [address] Consulting Physician Gynecologic Oncology 11/05/23 Control Operator Relationship Specialty Start Date End Date Christy Leach MD [address] [place] [phone] PCP - General 01/01/15 Jaqueline Grayson CLINICAL PROGRAMMER - CRISIS COUNSELOR [address] [facility] [address] [place] [address] Nurse Practitioner Certified Nurse Practitioner 11/03/22 Anjana Meadows APRN - CRISIS COUNSELOR [address] [facility] [address] [place] [address] Nurse Practitioner Nurse Practitioner 11/01/23 Cuauhtemoc Stubbs MD [address] [facility] [address] [place] [address] Consulting Physician Gynecologic Oncology 11/05/23 Control Operator Relationship Specialty Start Date End Date Christy Leach MD [address] [place] [phone] PCP - General 01/01/15 Jaqueline Grayson APRN - CRISIS COUNSELOR [address] [place] [address] Nurse Practitioner Certified Nurse Practitioner 11/03/22 Anjana Meadows APRN - CRISIS COUNSELOR [address] [facility] [place] [address] Nurse Practitioner Nurse Practitioner 11/01/23 Cuauhtemoc Stubbs MD [address] [place] [address] Consulting Physician Gynecologic Oncology 11/05/23 Control Operator Relationship Specialty Start Date End Date Christy Leahc MD [address] [facility] [address] [place] [phone] PCP - General 01/01/15 Jaqueline Grayson CLINICAL PROGRAMMER - CRISIS COUNSELOR [address] [place] [address] Nurse Practitioner Certified Nurse Practitioner 11/03/22 Anjana Meadows APRN - CRISIS COUNSELOR [address] [facility] [place] [address] Nurse Practitioner Nurse Practitioner 11/01/23 Cuauhtemoc Stubbs MD [address] [place] [address] Consulting Physician Gynecologic Oncology 11/05/23 Control Operator Relationship Specialty Start Date End Date Christy Leach MD [address] [place] [phone] PCP - General 01/01/15 Jaqueline Grayson CLINICAL PROGRAMMER - CRISIS COUNSELOR [address] [place] [address] Nurse Practitioner Certified Nurse Practitioner 11/03/22 Anjana Meadows APRN - CRISIS COUNSELOR [address] [place] [address] Nurse Practitioner Nurse Practitioner 11/01/23 Cuauhtemoc Stubbs MD [address] [place] [address] Consulting Physician Gynecologic Oncology 11/05/23 Control Operator Relationship Specialty Start Date End Date Christy Leach MD [address] [place] [phone] PCP - General 01/01/15 Jaqueline Grayson APRN - CRISIS COUNSELOR [address] [place] [address] Nurse Practitioner Certified Nurse Practitioner 11/03/22 Anjana Meadows APRN - CRISIS COUNSELOR [address] [place] [address] Nurse Practitioner Nurse Practitioner 11/01/23 Cuauhtemoc Stubbs MD [address] [place] [address] Consulting Physician Gynecologic Oncology 11/05/23 Control Operator Relationship Specialty Start Date End Date Christy Leach MD [address] [place] [phone] PCP - General 01/01/15 Jaqueline Grayson APRN - CRISIS COUNSELOR [address] [place] [address] Nurse Practitioner Certified Nurse Practitioner 11/03/22 Anjana Meadows APRN - CNP [address] [facility] [address] [place] [address] Nurse Practitioner Nurse Practitioner 11/01/23 Cuauhtemoc Stubbs MD [address] [facility] [address] [place] [address] Consulting Physician Gynecologic Oncology 11/05/23 Source Comments (unrecognize d section and content) In the event this informatio n is protected by the Federal Confidentiality of Alcohol and Drug Abuse Patient Records regulations: The Federal rules restrict any use of the information to criminally investigate or prosecute any alcohol or drug abuse patient.[facility] the event this information is protected by the Federal Confidentiality of Alcohol and Drug Abuse Patient Records regulations: The Federal rules restrict any use of the information to criminally investigate or prosecute any alcohol or drug abuse patient.[facility] the event this information is protected by the Federal Confidentiality of Alcohol and Drug Abuse Patient Records regulations: The Federal rules restrict any use of the information to criminally investigate or prosecute any alcohol or drug abuse patient.[facility] the event this information is protected by the Federal Confidentiality of Alcohol and Drug Abuse Patient Records regulations: The Federal rules restrict any use of the information to criminally investigate or prosecute any alcohol or drug abuse patient.[facility] HospitalIn the event this information is protected by the Federal Confidentiality of Alcohol and Drug Abuse Patient Records regulations: The Federal rules restrict any use of the information to criminally investigate or prosecute any alcohol or drug abuse patient.[facility]In the event this information is protected by the Federal Confidentiality of Alcohol and Drug Abuse Patient Records regulations: The Federal rules restrict any use of the information to criminally investigate or prosecute any alcohol or drug abuse patient.[facility] the event this information is protected by the Federal Confidentiality of Alcohol and Drug Abuse Patient Records regulations: The Federal rules restrict any use of the information to criminally investigate or prosecute any alcohol or drug abuse patient.[facility] HospitalIn the event this information is protected by the Federal Confidentiality of Alcohol and Drug Abuse Patient Records regulations: The Federal rules restrict any use of the information to criminally investigate or prosecute any alcohol or drug abuse patient.[facility]In the event this information is protected by the Federal Confidentiality of Alcohol and Drug Abuse Patient Records regulations: The Federal rules restrict any use of the information to criminally investigate or prosecute any alcohol or drug abuse patient.[facility] HospitalIn the event this information is protected by the Federal Confidentiality of Alcohol and Drug Abuse Patient Records regulations: The Federal rules restrict any use of the information to criminally investigate or prosecute any alcohol or drug abuse patient.[facility] HospitalIn the event this information is protected by the Federal Confidentiality of Alcohol and Drug Abuse Patient Records regulations: The Federal rules restrict any use of the information to criminally investigate or prosecute any alcohol or drug abuse patient.[facility] HospitalIn the event this information is protected by the Federal Confidentiality of Alcohol and Drug Abuse Patient Records regulations: The Federal rules restrict any use of the information to criminally investigate or prosecute any alcohol or drug abuse patient.[facility] HospitalIn the event this information is protected by the Federal Confidentiality of Alcohol and Drug Abuse Patient Records regulations: The Federal rules restrict any use of the information to criminally investigate or prosecute any alcohol or drug abuse patient.[facility] HospitalIn the event this information is protected by the Federal Confidentiality of Alcohol and Drug Abuse Patient Records regulations: The Federal rules restrict any use of the information to criminally investigate or prosecute any alcohol or drug abuse patient.[facility] HospitalIn the event this information is protected by the Federal Confidentiality of Alcohol and Drug Abuse Patient Records regulations: The Federal rules restrict any use of the information to criminally investigate or prosecute any alcohol or drug abuse patient.[facility] Reason for Visit (unrecogniz ed section [...] changes. Specialty Diagnoses / Procedures Referred By Contac t Referred To Contact Radiology Diagnoses Endometrial cancer (CMS/HCC) (HCC) Procedures CT abdomen pelvis w contrast Anjana Meadows, CLINICAL PROGRAMMER - CRISIS COUNSELOR [address] [place] [address] [facility] [address] [facility] [address] [place] [phone] Referral ID Status Reason Start Date Expiration Date Visits Re quested Visits Authorized [id number] Closed 11/01/2023 10/31/2024 1 1 Reason Comments Wound Care Nurse Visit/Bilat. P rofore change Reason Comments Other Specialty Diagnoses / Procedures Referred By Elias piedra Referred To Contact Cardiology Diagnoses Essential (primary) hypertension Cardiac murmur, unspecified Procedures Transthoracic echocardiogram (TTE) complete with contrast, bubble, strain, and 3D PRN RI ECHO TTHRC R-T 2D W/WOM-MODE COMPL SPEC&COLR D RI TTE W OR WO FOL WCON,DOPPLER Chritsy Leach MD [address] [place] [address] [facility] Non-Invasive Cardiology [address] [place] [address] [place] [phone] Referral ID Status Reason Start Date Expiration Date Visits Re quested Visits Authorized [id number] Closed 02/28/2024 02/27/2025 1 1 Reason Onset [...] days. Specialty Diagnoses / Procedures Referred By Elias piedra Referred To Contact Diagnoses Hyperglycemia Procedures . Wilner Kingston MD [address] [place] [address] Phone: tel: fax: [facility] [address] [place] [phone] Phone: tel: Referral ID Status Reason Start Date Expiration Date Visits Re quested Visits Authorized [id number] 1 1 Reason Onset Date Comments Hypertension 12/04/2024 Reason Comments Endometrial Cancer Specialty Diagnoses / Procedures Referred By Elias piedra Referred To Contact Gynecologic Oncology Diagnoses Malignant neoplasm of corpus uteri, unspecified (HCC) Procedures OUTPATIENT SERVICES-GENERAL Christy Leach MD [address] [place] [address] Phone: tel: fax: Cuauhtemoc Stubbs MD [address] [facility] [address] [place] [address] Phone: tel: fax: Referral ID Status Reason Start Date Expiration Date V isits Requested Visits Authorized [id number] Pending Review 12/05/2024 12/05/2025 1 1 Reason Onset Date Comments Hypertension 12/23/2024 Reason Onset Date Comments Blood Sugar Problem 11/01/2024 Reason Comments Weakness, Gen Pt arrives from home by ems stating she has felt weak for multiple days and thinks she might have a UTI. 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 Jennifer León DO [address] [place] [address] Phone: tel: fax: [facility] [address] [place] [phone] Phone: tel: Referral ID Status Reason Start Date Expiration Date Visits Re quested Visits Authorized [id number] 1 1 Scheduled Active and Recently Administ ered Medications (unrecognized section and content) Medication Order 11/03/2024 11/04/2024 11/05/2024 apixaban (Eliquis) tablet 5 mg 5 mg, Oral, 2 times daily, First dose on 11/02/24 at 0920, Anticoagulant 0804 (Given - Provider: Rayne Kerr, VALENTÍN)214 (Given - Provider: Deepika Pantoja, VALENTÍN) 08 (Given - Provider: Brooks Sawyer, VALENTÍN)215 (Given - Provider: Gisel Sam RN) 09 (Given - Provider: Rayne Kerr, VALENTÍN) atorvastatin (Lipitor) tablet 40 mg 40 mg, Oral, Daily, First dose on 11/02/24 at 0900 0804 (Given - Provider: Rayne [...] iv access) 0018 (Stopped - Provider: Deepika Pantoja RN) cephalexin (Keflex) capsule 500 mg 500 mg, Oral, 2 times daily, First dose on Sun11/04/24 at 1000, For 4 doses, Suspected Indication (Select all that apply): Urinary Tract Infection 1322 (Given - Provider: Brooks Sawyer RN)2156 (Given - Provider: Gisel Sam, VALENTÍN) 0923 (Given - Provider: Rayne Kerr RN) insulin glargine (Lantus) injection 24 Units 24 Units, SubCUTAneous, Nightly, First dose (after last modification) on Sun11/02/24 at 2100 2142 (Given - Provider: Deepika Pantoja RN) 215 (Given - Provider: Gisel Sam, RN) Insulin [...] Kerr RN) 0816 (Given - Provider: Brooks Sawyer RN)1228 (Given - Provider: Jeannette Damian RN)1839 (Given - Provider: Brooks Sawyer, VALENTÍN) 0922 (Given - Provider: Rayne Kerr, VALENTÍN)1200 [...] Pantoja RN) 0538 (Given - Provider: Gisel Sam, VALENTÍN) metoprolol tartrate (Lopressor) tablet 25 mg (CANCELED) [...] Brooks Sawyer RN)2156 (Given - Provider: Gisel Sam, VALENTÍN) 0923 (Given - Provider: Rayne Kerr, VALENTÍN) timolol (Timoptic) 0.5 % ophthalmic solution 1 drop 1 drop, Both Eyes, 2 times daily, First dose on Sun11/02/24 at 0245 0900 (Not Given - Provider: Rayne Kerr RN - Reason: Patient/family refused)2142 (Given - Provider: Deepika Pantoja RN) 0817 (Given - Provider: Brooks Sawyer RN)2159 (Given - Provider: Gisel Sam RN) 0975 (Given - Provider: Rayne Kerr, VALENTÍN) Continuous Medication Order 11/03/2024 11/04/2024 11/05/2024 sodium chloride 0.9 % infusion (CANCELED) 75 mL/hr, IntraVENous, Continuous, Starting on Sun11/02/24 at 0245 1212 (New Bag - Provider: [...] Every 6 hours PRN, wheezing, Starting on Sun11/02/24 at 0243 dextrose 10 % infusion 200 [...] g, Oral, Daily PRN, constipation, Starting on 11/02/24 at 0243, 1st line for treatment of [...] 0-18 Units, SubCUTAneous, Nightly, First dose on Sun11/02/24 at 2100, If eating or bolus tube [...] Anticoagulant 0938 (Given - Provider: Maureen Garcia RN)2113 (Given - Provider: Nichole Sharma RN) 08 (Given - Provider: Kat Jiménez, VALENTÍN)2012 (Given [...] RN)2113 (Given - Provider: Nichole Sharma RN) 08 (Given - Provider: Kat Jiménez, VALENTÍN)2012 (Given - Provider: Nichole Sharma RN) 0834 (Given - Provider: Kat Jiménez, RN) cholecalciferol (Vitamin D-3) tablet 50 mcg 50 [...] at 2245 2114 (Given - Provider: Nichole Sharma, VALENTÍN) 2011 (Given - Provider: Nichole Sharma, VALENTÍN) Insulin Lispro (Humalog) injection 0-12 Units(Linked Group [...] Kat Jiménez RN)1232 (Given - Provider: Kat Jmiénez, RN)1703 (Not Given - Provider: Reyes Golden RN - Reason: Order parameters not met) 0833 (Given - Provider: Kat Jiménez, RN)1220 (Given - Provider: Kat Jiménez, RN)1739 (Not Given - Provider: Kat Jiménez [...] Sharma, VALENTÍN) 2011 (Given - Provider: Nichole Sharma, VALENTÍN) Insulin Lispro (Humalog) injection 4 Units 4 Units, SubCUTAneous, 3 times daily with meals, First dose (after last modification) on Sun05/12/25 at 1200 0845 (Given - Provider: Maureen Garcia RN)1353 (Given - Provider: Maureen Garcia RN)1717 (Given - Provider: Maureen Garcia RN) 0818 (Given - Provider: Kat Jiménez, VALENTÍN)1232 (Given - Provider: Kat Jiménez, RN)1708 (Given - Provider: Reyes Golden RN) 0834 (Given - Provider: Kat Jiménez, RN)1220 (Given - Provider: Kat Jiménez, RN)1739 (Not Given - Provider: Kat Jiménez [...] 0833 (Given - Provider: Kat Jiménez, RN) metoprolol tartrate (Lopressor) tablet 25 mg 25 mg, Oral, 2 times daily, First dose on Sun05/11/25 at 2245, Hold for HR<60 BPM 0846 (Given - Provider: Maureen Garcia RN)2113 (Given - Provider: Nichole Sharma RN) 08 (Given - Provider: Kat Jiménez, RN)2012 (Given - Provider: Nichole Sharma RN) 0833 (Given - Provider: Kat Jiménez, VALENTÍN) miconazole (Micotin) 2 % powder Topical, 2 times daily, First dose on Sun05/12/25 at 1230, Nursing staff to perform dressing change: Abdominal Fold/Groin: Fungal Dermatitis -Cleanse with Hibiclens soap and water. Apply miconazole powder. Leave ROUSTABOUT HEAD. Apply BID and PRN Bilateral medial thighs: Fungal Dermatitis -Cleanse with Hibiclens soap and water. Apply miconazole powder. Leave ROUSTABOUT HEAD. 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 Apply miconazole powder to wound bed, followed by ET mix. Leave GEREMIAS. Apply BID and PRN 0846 (Given - Provider: Maureen Garcia RN)2114 (Given - Provider: Nichole Sharma RN) 817 (Given - Provider: Kat Jiménez RN)2012 (Given - Provider: Nichole Sharma RN) 0834 (Given - Provider: Kat Jiménez, RN) sodium chloride 0.9% (NS) flush 10 mL 10 mL, IntraVENous, Every 12 hours scheduled (2 times per day), First dose on Sun05/11/25 at 2255 0847 (Given - Provider: Maureen Garcia RN)2112 (Given - Provider: Nichole Sharma RN) 08 (Given - Provider: Kat Jiménez, VALENTÍN)2011 (Given - Provider: Nichole Sharma RN) 0839 (Given - Provider: Kat Jiménez, RN) stomahesive in petrolatum (ET Mix) Topical, 2 [...] RN)2114 (Given - Provider: Nichole Sharma RN) 08 (Given - Provider: Kat Jiménez, VALENTÍN)2012 (Given - Provider: Nichole Sharma, VALENTÍN) 0834 (Given - Provider: Kat Jiménez, RN) therapeutic multivitamin-minerals (Theragran-M) tablet 1 tablet, Oral, Daily, First dose on Sun05/12/25 at 0900 0846 (Given - Provider: Maureen Garcia RN) 0818 (Given - Provider: Kat Jiménez, VALENTÍN) 0833 (Given - Provider: Kat Jiménez, RN) timolol (Timoptic) 0.5 % ophthalmic solution 1 drop 1 drop, Both Eyes, 2 times daily, First dose on Sun05/11/25 at 2315 0846 (Given - Provider: Maureen Garcia RN)2330 (Not Given - Provider: Nichole Sharma RN - Reason: Medication not available) 0828 (Given - Provider: Kat Jiménez, VALENTÍN)2012 (Given - Provider: Nichole Sharma, VALENTÍN) 0833 (Given - Provider: Kat Jiménez RN) [...] soap and water. Apply miconazole powder. Leave ROUSTABOUT HEAD. Apply BID and PRN Bilateral medial thighs: Fungal Dermatitis -Cleanse with Hibiclens soap and water. Apply miconazole powder. Leave ROUSTABOUT HEAD. 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 Apply miconazole powder to wound bed, followed by ET mix. Leave GEREMIAS. Apply BID and PRN dextrose 5 % [...] soap and water. Apply miconazole powder. Leave ROUSTABOUT HEAD. Apply BID and PRN Bilateral medial thighs: Fungal Dermatitis -Cleanse with Hibiclens soap and water. Apply miconazole powder. Leave GEREMIAS. 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 Apply miconazole powder to wound bed, followed by ET mix. Leave ROUSTABOUT HEAD. 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 Give RI if patient is unable to take orally [...] on Sun05/11/25 at 2248, 1st Line. Give RI if patient is unable to take orally [...] BE BASED ON THE PRIMARY CLINICAL RECORDS. [facility]. provides no warranty or guarantee of the accuracy or completeness of information in this document.
[2025-07-15 08:33] LABS: Hematocrit 30.7 % (37-47); Hemoglobin 9.9 g/dL (12.0-15.0); Mean Corp Hgb Conc 32.2 g/dL (32-36); Mean Corpuscular Volume 92.5 fL (81-99); Mean Platelet Vol. 12.5 fl (6.2-12.0); Platelet Count 188 K/mm3 (150-450); RBC Distribution Width CV 14.2 % (11.6-14.6); RBC Distribution Width SD 47.0 fl (35.1-43.9); Red Blood Count 3.32 M/mm3 (4.2-5.4); White Blood Count 5.7 K/mm3 (4.4-11.0)
[2025-07-15 08:50] LABS: Anion Gap 8 (7-18); BUN 26 mg/dL (4-19); BUN/Creat Ratio 32.8 RATIO (10-20); Calcium,Total 8.7 mg/dL (7.6-11.0); Carbon Dioxide 19.4 mmol/L (20.0-29.0); Chloride 114 mmol/L (96-106); Glucose 85 mg/dL (70-99); Potassium 4.2 mmol/L (3.5-5.1)
== END ==
LOC: OLS.SANC 04:00
PROVIDERS: Referring Provider Internal Medicine; Visit Provider Internal Medicine
DX: I48.91 Unspecified atrial fibrillation (principal); I10 Essential (primary) hypertension; E78.5 Hyperlipidemia, unspecified; E03.9 Hypothyroidism, unspecified
CPT/HCPCS: 36415; 80048; 85027

== ENCOUNTER → 2025-07-20 05:00 | Outpatient (REF) | payer MEDICARE, SELFPAY ==
--- OUTSIDE RECORDS SUMMARY | 2025-07-20 03:50 | XMS RPT_ITS | CCD ---
Author Organization [facility] Care Team Providers Care Sleeve Baster Name Role Phone Christy Leach Primary Care [...] Christy Leach MD Primary Care Provider Renuka INSURANCE CLAIM AUDITOR - OPTICAL ADVISOR, Jaqueline Unavailable Christy Leach MD Primary Care Provider Renuka INSURANCE CLAIM AUDITOR - OPTICAL ADVISOR, Jaqueline Unavailable Vanessa Carbajal MD, Christy Gill Primary Care Prov ider Renuka INSURANCE CLAIM AUDITOR - OPTICAL ADVISOR, Jaqueline Unavailable Frandy INSURANCE CLAIM AUDITOR - OPTICAL ADVISOR, Anjana Unavailable Enoc ANAYA, Cuauhtemoc Be Unavailable Vanessa Carbajal MD, Christy Gill Primary [...] MD, Christy Gill Primary Care Provider Renuka INSURANCE CLAIM AUDITOR - OPTICAL ADVISOR, Jaqueline Unavailable Frandy INSURANCE CLAIM AUDITOR - OPTICAL ADVISOR, Anjana Unavailable [phone] Cuauhtemoc Stubbs MD Unavailable Allergies Allergy Classification Reported Allergen(s) Allergy Type Date of Onset Reaction(s) Facility bimatoprost (2 sources) bimatoprost Drug Allergy 8 Other [facility] Doxycycline (20 sources) Doxycycline Drug [...] sources) levoFLOXacin Drug Allergy 5 [facility] Doxycycline; Translations: [DOXYCYCLINE] Drug Allergy 7 Rash, Hives [place], [place] (20 sources) Erythromycin; Translations: [ERYTHROMYCIN] Drug Allergy 3 Hives [place] (20 sources) levoFLOXacin Drug Allergy 5 Swelling [place], [place] (20 sources) Mold Extract Drug Allergy 5 Itching [place] (20 sources) Nitrofurantoin; Translations: [NITROFURANTOIN MONOHYD MACRO] Drug Allergy 5 Itching [place] (20 sources) Penicillins; Translations: [PENICILLINS] Propensity to adverse reactions to drug 4 Rash [place] (20 sources) Quinolones (Antibiotic) Propensity to adverse reactions to drug 5 Swelling [place] (20 sources) Macrolides And Ketolides Propensity to adverse reactions to drug 5 [place] (20 sources) Other; Translations: [OTHER] Propensity to adverse reactions 3 Itching [place] (16 sources) bimatoprost; Translations: [BIMATOPROST] Drug Allergy 8 Intolerance [facility] Work Phone: (16 sources) Doxycycline; Translations: [DOXYCYCLINE HYCLATE] Drug Allergy 7 Rash, [facility], [facility] (20 sources) levoFLOXacin; Translations: [LEVOFLOXACIN] Drug Allergy 3 Other: See Comments, Angioedema, [facility] (20 sources) Macrolides (Antibiotic); Translations: [MACROLIDE ANTIBIOTICS] Drug Allergy 4 [facility] (16 sources) NITROFURANTOIN, MACROCRYSTALS / Nitrofurantoin, Monohydrate; Translations: [NITROFURANTOIN MONOHYD/M-CRYST] Drug Allergy 5 Itching [facility] (10 sources) Penicillins Propensity to adverse reactions 4 Rash [facility] Work Phone: (16 sources) Mold Spores; Translations: [MOLD SPORES] [facility] Macrolides Drug Allergy 4 [facility] (5 sources) Penicillins Propensity to adverse reactions 4 [facility] Work Phone: (20 sources) bimatoprost Drug Allergy 8 Other [facility] (20 sources) Nitrofurantoin Drug Allergy 2 [facility] (20 sources) Penicillins Propensity to adverse reactions to drug 2 [facility] Medications Current Medications Medication Drug Class(es) Dates [...] a Fluress shortage, administer 1 drop of [place]-Fluor into both eyes as directed for applanation [...] 5 mg, Oral, DAILY, First dose on [employer] 09/30/20 at 1615 Do not crush or [...] by Does not apply route 0 Active [id number] 0.3 ml EPINEPHrine 1 mg/ml auto-injector (15 [...] Active Comment on above: Take by mouth. [place] stones-not gummies Take 2 tablets by mo [...] Drug Class(es) Dates Sig (Normalized) Sig (Original) [id number] 200 actuat albuterol 0.09 mg/actuat metered dose [...] reach optimal image enhancement polyethylene glycol 3350 50285 mg powder for oral solution (4 sources) [...] on Sun05/11/25 at 2248, 1st Line. Give [place] if patient is unable to take orally [...] 5 06-21-2018 Episodic Other aftercare (1 source) [facility] (current) use of insulin; Translations: [Type 2 [...] Results Test Name Value Interpretation Reference Range [facility] [id number] 05-20-2025 [id number] Patient Choice Patient Name: DAMEON POTTER Date of : 1955 [facility] [id number] 05-19-2025 [id number] [facility] [id number] [address] Patient/Family Choice [facility] [id number] [facility] [id number] [facility] [id number] [facility] T[facility] request. [facility] BASIC METABOLIC PANELon - Anion gap [Moles/Vol] 7 mmol/L Normal - [facility] Comment on above: Performed By: #### L [id number] ####[employer] Installer: NIEVES RUIZ ([id number])[facility] ([address] Calcium [Mass/Vol] 8.2 mg/dL Low 8.8-10.0 [facility] Comment on above: Performed By: #### L [id number] ####[employer] Installer: NIEVES RUIZ ([id number])[facility])[address] [place] [address] Chloride [Moles/Vol] 107 mmol/L Normal 98-107 [facility] Comment on above: Performed By: #### L [id number] ####[employer] Installer: NIEVES RUIZ ([id number])[facility] ([facility])[address] [place] [address] CO2 [Moles/Vol] 22 mmol/L Low 23-31 [facility] Comment on above: Performed By: #### L [id number] ####[employer] Installer: NIEVES RUIZ ([id number])[facility])[address] [place] [address] Creatinine [Mass/Vol] 0.59 mg/dL Normal 0.58-1.12 [facility] Comment on above: Performed By: #### L [id number] ####[employer] Installer: NIEVES RUIZ ([id number])[facility] ([facility])[address] [place] [address] GLOMERULAR FILTRATION RATE ML/MIN/1.73 SQ M.PREDICTED >90.0 Normal >60.0 [facility] Comment on above: Result Comment: Calc ulation based on the Chronic Kidney Disease Epidemiology Collaboration (CKD-EPI) equation refit without adjustment for race Performed By: #### L [id number] ####[employer] Installer: NIEVES RUIZ ([id number])[facility] ([facility])[address] [place] [address] Glucose [Mass/Vol] 116 mg/dL High 82-115 [facility] Comment on above: Performed By: #### L [id number] ####[employer] Installer: NIEVES RUIZ ([id number])[facility])[address] [place] [address] Potassium [Moles/Vol] 4.3 mmol/L Normal 3.5-5.1 [facility] Comment on above: Result Comment: [facility] potassium values may be up to 0.5 mmol/L lower than serum values. Performed By: #### L [id number] ####[employer] Installer: NIEVES RUIZ ([id number])[facility])[address] [place] [address] Sodium [Moles/Vol] 136 mmol/L Normal 136-145 [facility] Comment on above: Performed By: #### L [id number] ####[employer] Installer: NIEVES RUIZ ([id number])[facility] ([facility])[address] [place] [address] Urea nitrogen [Mass/Vol] 18 mg/dL Normal 9-23 [facility] Comment on above: Performed By: #### L [id number] ####[employer] Installer: NIEVES RUIZ ([id number])[facility])[address] [place] [address] Basic metabolic 1998 panelon 05-19-2025 Anion gap [Moles/Vol] 7 mmol/L 3 - 13 mmol/L [facility] Calcium [Mass/Vol] 8.2 mg/dL Low 8.8 - 10. 0 mg/dL [facility] Chloride [Moles/Vol] 107 mmol/L 98 - 10 7 mmol/L [facility] CO2 [Moles/Vol] 22 mmol/L Low 23 - 31 mmol/L [facility] Creatinine [Mass/Vol] 0.59 mg/dL 0.58 - 1.12 mg/dL [facility] GFR/1.73 sq M.predicted (S/P/Bld) [Vol rate/Area] - PINF [facility] Glucose [Mass/Vol] 116 mg/dL High 82 - 115 mg/dL [facility] Interpretation and review of laboratory results Abnormal [facility] Potassium [Moles/Vol] 4.3 mmol/L 3.5 - 5.1 mmol/L [facility] Sodium [Moles/Vol] 136 mmol/L 136 - 145 mmol/L [facility] Urea nitrogen [Mass/Vol] 18 mg/dL 9 - 23 mg/dL [facility] CBC W Auto Differential pane l (Bld)on 05-19-2025 Basophils (Bld) [#/Vol] 0.1 10*3/uL 0.0 - 0.2 10*3/uL [facility] Basophils/100 WBC (Bld) 0.9 % 0.0 - 2.0 % [facility] Eosinophils (Bld) [#/Vol] 0.2 10*3/uL 0. 0 - 0.5 10*3/uL [facility] Eosinophils/100 WBC (Bld) 2.1 % 0.0 - 6.0 % [facility] Erythrocyte distribution width (RBC) [Ratio] 13.3 % 11.5 - 15.0 % [facility] Hematocrit (Bld) [Volume fraction] 31.3 % Low 35.0 - 47.0 % [facility] Hemoglobin (Bld) [Mass/Vol] 10 g/dL Low 11.7 - 16.0 g/dL [facility] Immature granulocytes (Bld) [#/Vol] 0.1 10*3/uL High NINF - 0.1 10*3/uL [facility] Immature granulocytes/100 WBC (Bld) 1.6 % 0.0 - 2.0 % [facility] Interpretation and review of laboratory results Abnormal [facility] th Lymphocytes (Bld) [#/Vol] 0.8 10*3/uL Low 1. 0 - 4.3 10*3/uL [facility] Lymphocytes/100 WBC (Bld) 10.8 % Low 15 .0 - 45.0 % [facility] MCH (RBC) [Entitic mass] 29.7 pg 26. 0 - 34.0 pg [facility] MCHC (RBC) [Mass/Vol] 31.9 % 30.5 - 36.0 % [facility] MCV (RBC) [Entitic vol] 92.9 fL 77.0 - 99.0 fL [facility] Monocytes (Bld) [#/Vol] 0.7 10*3/uL 0.0 - 0.9 10*3/uL [facility] Monocytes/100 WBC (Bld) 8.6 % 5.0 - 13.0 % [facility] Neutrophils (Bld) [#/Vol] 5.8 10*3/uL 1. 8 - 7.5 10*3/uL [facility] Neutrophils/100 WBC (Bld) 76 % 38 .0 - 82.0 % [facility] Nucleated RBC/100 WBC (Bld) [Ratio] 0 % [facility] Platelet mean volume (Bld) [Entitic vol] 11.3 fL 9.0 - 12.7 fL [facility] Platelets (Bld) [#/Vol] 291 10*3/uL 140 - 440 10*3/uL [facility] RBC (Bld) [#/Vol] 3.37 10*6/uL Low 3.80 - 5.2 0 10*6/uL [facility] WBC (Bld) [#/Vol] 7.6 10*3/uL 3.6 - 10.7 10*3/uL [facility] CBC WITH AUTO DIFFERENTIALon 05-19-2025 Basophils (Bld) [#/Vol] 0.1 10*3/uL Normal 0.0-0.2 [facility] Comment on above: Performed By: #### L [id number] ####[employer] Installer: NIEVES RUIZ ([id number])[facility] ([facility])[address] [place] [address] Basophils/100 WBC (Bld) 0.9 % Normal 0.0-2.0 [facility] Comment on above: Performed By: #### L [id number] ####[employer] Installer: NIEVES RUIZ ([id number])[facility] ([facility])[address] [place] [address] Eosinophils (Bld) [#/Vol] 0.2 10*3/uL Normal 0.0-0.5 [facility] Comment on above: Performed By: #### L [id number] ####[employer] Installer: NIEVES RUIZ ([id number])[facility] ([facility])[address] [place] [address] Eosinophils/100 WBC (Bld) 2.1 % Normal 0.0-6.0 [facility] Comment on above: Performed By: #### L [id number] ####[employer] Installer: NIEVES RUIZ ([id number])[facility])[address] [place] [address] Erythrocyte distribution width (RBC) [Ratio] 13.3 % Normal 11.5-15.0 [facility] Comment on above: Performed By: #### L [id number] ####[employer] Installer: NIEVES RUIZ ([id number])[facility])[address] [place] [address] Hematocrit (Bld) [Volume fraction] 31.3 % Low 35.0-47.0 [facility] Comment on above: Performed By: #### L [id number] ####[employer] Installer: NIEVES RUIZ ([id number])[facility])[address] [place] [address] Hemoglobin (Bld) [Mass/Vol] 10.0 g/dL Low 11.7-16.0 [facility] Comment on above: Performed By: #### L [id number] ####[employer] Installer: NIEVES RUIZ ([id number])[facility])[address] [place] [address] IMMATURE GRANS % 1.6 % Normal 0.0-2.[address] [facility] Comment on above: Performed By: #### L [id number] ####[employer] Installer: NIEVES RUIZ ([id number])[facility])[address] [place] [address] IMMATURE GRANS ABSOLUTE 0.1 10*3/uL High <0.1 [facility] Comment on above: Performed By: #### L [id number] ####[employer] Installer: NIEVES RUIZ ([id number])[facility])[address] [place] [address] Lymphocytes (Bld) [#/Vol] 0.8 10*3/uL Low 1.0-4.3 [facility] Comment on above: Performed By: #### L [id number] ####[employer] Installer: NIEVES RUIZ ([id number])[facility])[address] [place] [address] [place] Lymphocytes/100 WBC (Bld) 10.8 % Low 15.0-45.0 [facility] Comment on above: Performed By: #### L [id number] ####[employer] Installer: NIEVES RUIZ ([id number])[facility])[address] [place] [address] MCH (RBC) [Entitic mass] 29.7 pg Normal 26.0-34.0 [facility] Comment on above: Performed By: #### L [id number] ####[employer] Installer: NIEVES RUIZ ([id number])[facility])[address] [place] [address] MCHC 31.9 % Normal 30.5-36.0 [facility] Comment on above: Performed By: #### L [id number] ####[employer] Installer: NIEVES RUIZ ([id number])[facility] ([facility])[address] [place] [address] MCV (RBC) [Entitic vol] 92.9 fL Normal 77.0-99.0 [facility] Comment on above: Performed By: #### L [id number] ####[employer] Installer: NIEVES RUIZ ([id number])[facility] ([facility])[address] [place] [address] Monocytes (Bld) [#/Vol] 0.7 10*3/uL Normal 0.0-0.9 [facility] Comment on above: Performed By: #### L [id number] ####[employer] Installer: NIEVES RUIZ ([id number])[facility])[address] [place] [address] Monocytes/100 WBC (Bld) 8.6 % Normal 5.0-13.0 [facility] Comment on above: Performed By: #### L [id number] ####[employer] Installer: NIEVES RUIZ ([id number])[facility])[address] [place] [address] NEUTROPHILS ABSOLUTE 5.8 10*3/uL Normal 1.8-7.5 [facility] Comment on above: Performed By: #### L [id number] ####[employer] Installer: NIEVES RUIZ ([id number])[facility])[address] [place] [address] Neutrophils/100 WBC (Bld) 76.0 % Normal 38.0-82.0 [facility] Comment on above: Performed By: #### L [id number] ####[employer] Installer: NIEVES RUIZ ([id number])[facility] ([facility])[address] [place] [address] NRBC 0.0 /100 WBCs Normal 0.0-2.0 [facility] Comment on above: Performed By: #### L [id number] ####[employer] Installer: NIEVES RUIZ ([id number])[facility] ([facility])[address] [place] [address] Platelet mean volume (Bld) [Entitic vol] 11.3 fL Normal 9.0-12.7 [facility] Comment on above: Performed By: #### L [id number] ####[employer] Installer: NIEVES RUIZ ([id number])[facility] ([facility])[address] [place] [address] Platelets (Bld) [#/Vol] 291 10*3/uL Normal 140-440 [facility] Comment on above: Performed By: #### L [id number] ####[employer] Installer: NIEVES RUIZ ([id number])[facility] ([facility])[address] [place] [address] RBC (Bld) [#/Vol] 3.37 10*6/uL Low 3.80-5.20 [facility] Comment on above: Performed By: #### L [id number] ####[employer] Installer: NIEVES RUIZ ([id number])[facility] ([facility])[address] [place] [address] WBC (Bld) [#/Vol] 7.6 10*3/uL Normal 3.6-10.7 [facility] Comment on above: Performed By: #### L [id number] ####[employer] Installer: NIEVES RUIZ ([id number])[facility])[address] [place] [address] Laboratory - Chemistry and C hemistry - challengeon 05-19-2025 Glucose [Mass/Vol] 256 mg/dL High 70 - 100 mg/dL [facility] Glucose [Mass/Vol] 152 mg/dL High 70 - 100 mg/dL [facility] Glucose [Mass/Vol] 151 mg/dL High 70 - 100 mg/dL [facility] No Panel Informationon 05-19 Interpretation and review of laboratory results Abnormal [facility] Interpretation and review of laboratory results Abnormal [facility] Interpretation and review of laboratory results Abnormal [facility] Nursing Noteon 05-19-2025 Nursing Note Normal [facility] Progress Noteon 05-19-2025 Progress Note Physician Response Please review the following and provide your response below. Please clarify which of the following accurately describes the patient's condition: Sepsis 2/2 UTI This documentation will become part of the patient's medical record. Normal [facility] Progress Note Normal [facility] Progress Note Normal [facility] Progress Note Normal [facility] [id number] 05-18-2025 [id number] Normal [facility] [id number] Normal [facility] BASIC METABOLIC PANELon 04-23 Anion gap [Moles/Vol] 6 mmol/L Normal 3-13 [facility] Comment on above: Performed By: #### L [id number] ####[employer] Installer: NIEVES RUIZ ([id number])[facility])[address] [place] [address] Calcium [Mass/Vol] 8.3 mg/dL Low 8.8-10.0 [facility] Comment on above: Performed By: #### L [id number] ####[employer] Installer: NIEVES RUIZ ([id number])[facility] ([facility])[address] [place] [address] [place] Chloride [Moles/Vol] 108 mmol/L High 98-107 [facility] Comment on above: Performed By: #### L [id number] ####[employer] Installer: NIEVES RUIZ ([id number])[facility] ([facility])[address] [place] [address] [place] CO2 [Moles/Vol] 21 mmol/L Low 23-31 [facility] Comment on above: Performed By: #### L [id number] ####[employer] Installer: NIEVES RUIZ ([id number])[facility] ([facility])[address] [place] [address] Creatinine [Mass/Vol] 0.65 mg/dL Normal 0.58-1.12 [facility] Comment on above: Performed By: #### L [id number] ####[employer] Installer: NIEVES RUIZ ([id number])[facility])[address] [place] [address] GLOMERULAR FILTRATION RATE ML/MIN/1.73 SQ M.PREDICTED >90.0 Normal >60.0 [facility] Comment on above: Result Comment: Calc ulation based on the Chronic Kidney Disease Epidemiology Collaboration (CKD-EPI) equation refit without adjustment for race Performed By: #### L [id number] ####[employer] Installer: NIEVES RUIZ ([id number])[facility] ([facility])[address] [place] [address] [place] Glucose [Mass/Vol] 136 mg/dL High 82-115 [facility] Comment on above: Performed By: #### L [id number] ####[employer] Installer: NIEVES RUIZ ([id number])[facility])[address] [place] [address] Potassium [Moles/Vol] 4.3 mmol/L Normal 3.5-5.1 [facility] Comment on above: Result Comment: [facility] potassium values may be up to 0.5 mmol/L lower than serum values. Performed By: #### L [id number] ####[employer] Installer: NIEVES RUIZ ([id number])[facility] ([facility])[address] [place] [address] [place] Sodium [Moles/Vol] 135 mmol/L Low 136-145 [facility] Comment on above: Performed By: #### L [id number] ####[employer] Installer: NIEVES RUIZ ([id number])[facility] ([facility])[address] [place] [address] Urea nitrogen [Mass/Vol] 20 mg/dL Normal 9-23 [facility] Comment on above: Performed By: #### L [id number] ####[employer] Installer: NIEVES RUIZ ([id number])[facility] ([address] Basic metabolic 1998 panelon 05-18-2025 Anion gap [Moles/Vol] 6 mmol/L 3 - 13 mmol/L [facility] Calcium [Mass/Vol] 8.3 mg/dL Low 8.8 - 10. 0 mg/dL [facility] Chloride [Moles/Vol] 108 mmol/L High 98 - 10 7 mmol/L [facility] CO2 [Moles/Vol] 21 mmol/L Low 23 - 31 mmol/L [facility] Creatinine [Mass/Vol] 0.65 mg/dL 0.58 - 1.12 mg/dL [facility] GFR/1.73 sq M.predicted (S/P/Bld) [Vol rate/Area] - PINF [facility] Glucose [Mass/Vol] 136 mg/dL High 82 - 115 mg/dL [facility] Interpretation and review of laboratory results Abnormal [facility] Potassium [Moles/Vol] 4.3 mmol/L 3.5 - 5.1 mmol/L [facility] Sodium [Moles/Vol] 135 mmol/L Low 136 - 145 mmol/L [facility] Urea nitrogen [Mass/Vol] 20 mg/dL 9 - 23 mg/dL [facility] CBC W Auto Differential pane l (Bld)on 05-18-2025 Basophils (Bld) [#/Vol] 0.1 10*3/uL 0.0 - 0.2 10*3/uL [facility] Basophils/100 WBC (Bld) 0.8 % 0.0 - 2.0 % [facility] Eosinophils (Bld) [#/Vol] 0.2 10*3/uL 0. 0 - 0.5 10*3/uL [facility] Eosinophils/100 WBC (Bld) 2.1 % 0.0 - 6.0 % [facility] Erythrocyte distribution width (RBC) [Ratio] 13.3 % 11.5 - 15.0 % [facility] Hematocrit (Bld) [Volume fraction] 32.8 % Low 35.0 - 47.0 % [facility] Hemoglobin (Bld) [Mass/Vol] 10.4 g/dL Low 11.7 - 16.0 g/dL [facility] Immature granulocytes (Bld) [#/Vol] 0.1 10*3/uL High NINF - 0.1 10*3/uL [facility] Immature granulocytes/100 WBC (Bld) 1.5 % 0.0 - 2.0 % [facility] Interpretation and review of laboratory results Abnormal [facility] th Lymphocytes (Bld) [#/Vol] 0.7 10*3/uL Low 1. 0 - 4.3 10*3/uL [facility] Lymphocytes/100 WBC (Bld) 8.6 % Low 15 .0 - 45.0 % [facility] MCH (RBC) [Entitic mass] 29.6 pg 26. 0 - 34.0 pg [facility] MCHC (RBC) [Mass/Vol] 31.7 % 30.5 - 36.0 % [facility] MCV (RBC) [Entitic vol] 93.4 fL 77.0 - 99.0 fL [facility] Monocytes (Bld) [#/Vol] 0.5 10*3/uL 0.0 - 0.9 10*3/uL [facility] Monocytes/100 WBC (Bld) 6.9 % 5.0 - 13.0 % [facility] Neutrophils (Bld) [#/Vol] 6.2 10*3/uL 1. 8 - 7.5 10*3/uL [facility] Neutrophils/100 WBC (Bld) 80.1 % 38 .0 - 82.0 % [facility] Nucleated RBC/100 WBC (Bld) [Ratio] 0 % [facility] Platelet mean volume (Bld) [Entitic vol] 11.5 fL 9.0 - 12.7 fL [facility] Platelets (Bld) [#/Vol] 282 10*3/uL 140 - 440 10*3/uL [facility] RBC (Bld) [#/Vol] 3.51 10*6/uL Low 3.80 - 5.2 0 10*6/uL [facility] WBC (Bld) [#/Vol] 7.8 10*3/uL 3.6 - 10.7 10*3/uL [facility] CBC WITH AUTO DIFFERENTIALon 05-18-2025 Basophils (Bld) [#/Vol] 0.1 10*3/uL Normal 0.0-0.2 [facility] Comment on above: Performed By: #### L [id number] ####[employer] Installer: NIEVES RUIZ ([id number])[facility])[address] [place] [address] Basophils/100 WBC (Bld) 0.8 % Normal 0.0-2.0 S [facility] Comment on above: Performed By: #### L [id number] ####[employer] Installer: NIEVES RUIZ ([id number])[facility])[address] [place] [address] Eosinophils (Bld) [#/Vol] 0.2 10*3/uL Normal 0.0-0.5 [facility] Comment on above: Performed By: #### L [id number] ####[employer] Installer: NIEVES RUIZ ([id number])[facility])[address] [place] [address] Eosinophils/100 WBC (Bld) 2.1 % Normal 0.0-6.0 [facility] Comment on above: Performed By: #### L [id number] ####[employer] Installer: NIEVES RUIZ ([id number])[facility])[address] [place] [address] Erythrocyte distribution width (RBC) [Ratio] 13.3 % Normal 11.5-15.0 [facility] Comment on above: Performed By: #### L [id number] ####[employer] Installer: NIEVES RUIZ ([id number])[facility])[address] [place] [address] Hematocrit (Bld) [Volume fraction] 32.8 % Low 35.0-47.0 [facility] Comment on above: Performed By: #### L [id number] ####[employer] Installer: NIEVES RUIZ ([id number])[facility])[address] [place] [address] Hemoglobin (Bld) [Mass/Vol] 10.4 g/dL Low 11.7-16.0 [facility] Comment on above: Performed By: #### L [id number] ####[employer] Installer: NIEVES RUIZ ([id number])[facility] ([facility])[address] [place] [address] IMMATURE GRANS % 1.5 % Normal 0.0-2.0 [facility] Comment on above: Performed By: #### L [id number] ####[employer] Installer: NIEVES RUIZ ([id number])[facility])[address] [place] [address] IMMATURE GRANS ABSOLUTE 0.1 10*3/uL High <0.1 [facility] Comment on above: Performed By: #### L [id number] ####[employer] Installer: NIEVES RUIZ ([id number])[facility])[address] [place] [address] Lymphocytes (Bld) [#/Vol] 0.7 10*3/uL Low 1.0-4.3 [facility] Comment on above: Performed By: #### L [id number] ####[employer] Installer: NIEVES RUIZ ([id number])[facility])[address] [place] [address] Lymphocytes/100 WBC (Bld) 8.6 % Low 15.0-45.0 [facility] Comment on above: Performed By: #### L [id number] ####[employer] Installer: NIEVES RUIZ ([id number])[facility])[address] [place] [address] MCH (RBC) [Entitic mass] 29.6 pg Normal 26.0-34.0 [facility] Comment on above: Performed By: #### L [id number] ####[employer] Installer: NIEVES RUIZ ([id number])[facility])[address] [place] [address] MCHC 31.7 % Normal 30.5-36.0 [facility] Comment on above: Performed By: #### L [id number] ####[employer] Installer: NIEVES RUIZ ([id number])[facility])[address] [place] [address] MCV (RBC) [Entitic vol] 93.4 fL Normal 77.0-99.0 S [facility] Comment on above: Performed By: #### L [id number] ####[employer] Installer: NIEVES RUIZ ([id number])[facility] ([facility])[address] [place] [address] Monocytes (Bld) [#/Vol] 0.5 10*3/uL Normal 0.0-0.9 [facility] Comment on above: Performed By: #### L [id number] ####[employer] Installer: NIEVES RUIZ ([id number])[facility] ([facility])[address] [place] [address] Monocytes/100 WBC (Bld) 6.9 % Normal 5.0-13.0 [facility] Comment on above: Performed By: #### L [id number] ####[employer] Installer: NIEVES RUIZ ([id number])[facility] ([facility])[address] [place] [address] NEUTROPHILS ABSOLUTE 6.2 10*3/uL Normal 1.8-7.5 [facility] Comment on above: Performed By: #### L [id number] ####[employer] Installer: NIEVES RUIZ ([id number])[facility] ([facility])[address] [place] [address] Neutrophils/100 WBC (Bld) 80.1 % Normal 38.0-82.0 [facility] Comment on above: Performed By: #### L [id number] ####[employer] Installer: NIEVES RUIZ ([id number])[facility] ([facility])[address] [place] [address] NRBC 0.0 /100 WBCs Normal 0.0-2.0 [facility] Comment on above: Performed By: #### L [id number] ####[employer] Installer: NIEVES RUIZ ([id number])[facility] ([facility])[address] [place] [address] Platelet mean volume (Bld) [Entitic vol] 11.5 fL Normal 9.0-12.7 [facility] Comment on above: Performed By: #### L [id number] ####[employer] Installer: NIEVES RUIZ ([id number])[facility] ([facility])[address] [place] [address] Platelets (Bld) [#/Vol] 282 10*3/uL Normal 140-440 [facility] Comment on above: Performed By: #### L [id number] ####[employer] Installer: NIEVES RUIZ ([id number])[facility])[address] [place] [address] RBC (Bld) [#/Vol] 3.51 10*6/uL Low 3.80-5.20 [facility] Comment on above: Performed By: #### L [id number] ####[employer] Installer: NIEVES RUIZ ([id number])[facility] ([facility])[address] [place] [address] WBC (Bld) [#/Vol] 7.8 10*3/uL Normal 3.6-10.7 [facility] Comment on above: Performed By: #### L [id number] ####[employer] Installer: NIEVES RUIZ ([id number])[facility] ([facility])[address] [place] [address] Laboratory - Chemistry and C hemistry - challengeon 05-18-2025 Glucose [Mass/Vol] 213 mg/dL High 70 - 100 mg/dL [facility] Glucose [Mass/Vol] 122 mg/dL High 70 - 100 mg/dL [facility] Glucose [Mass/Vol] 155 mg/dL High 70 - 100 mg/dL [facility] Glucose [Mass/Vol] 157 mg/dL High 70 - 100 mg/dL [facility] No Panel Informationon 05-18 Interpretation and review of laboratory results Abnormal [facility] Interpretation and review of laboratory results Abnormal [facility] Interpretation and review of laboratory results Abnormal [facility] Interpretation and review of laboratory results Abnormal [facility] Progress Noteon 05-18-2025 Progress Note Normal [facility] BASIC METABOLIC PANELon 10-2 Anion gap [Moles/Vol] 6 mmol/L Normal 3-13 [facility] Comment on above: Performed By: #### L [id number] ####[employer] Installer: NIEVES RUIZ ([id number])[facility])[address] [place] [address] Calcium [Mass/Vol] 7.9 mg/dL Low 8.8-10.0 [facility] Comment on above: Performed By: #### L [id number] ####[employer] Installer: NIEVES RUIZ ([id number])[facility])[address] [place] [address] Chloride [Moles/Vol] 109 mmol/L High 98-107 [facility] Comment on above: Performed By: #### L [id number] ####[employer] Installer: NIEVES RUIZ ([id number])[facility] [place] [address] CO2 [Moles/Vol] 20 mmol/L Low 23-31 [facility] Comment on above: Performed By: #### L [id number] ####[employer] Installer: NIEVES RUIZ ([id number])[facility] ([facility])[address] [place] [address] Creatinine [Mass/Vol] 0.64 mg/dL Normal 0.58-1.12 [facility] Comment on above: Performed By: #### L [id number] ####[employer] Installer: NIEVES RUIZ ([id number])[facility] ([facility])[address] [place] [address] GLOMERULAR FILTRATION RATE ML/MIN/1.73 SQ M.PREDICTED >90.0 Normal >60.0 [facility] Comment on above: Result Comment: Calc ulation based on the Chronic Kidney Disease Epidemiology Collaboration (CKD-EPI) equation refit without adjustment for race Performed By: #### L [id number] ####[employer] Installer: NIEVES RUIZ ([id number])[facility])[address] [place] [address] [place] Glucose [Mass/Vol] 127 mg/dL High 82-115 [facility] Comment on above: Performed By: #### L [id number] ####[employer] Installer: NIEVES RUIZ ([id number])[facility])[address] [place] [address] Potassium [Moles/Vol] 4.3 mmol/L Normal 3.5-5.1 [facility] Comment on above: Result Comment: [facility] potassium values may be up to 0.5 mmol/L lower than serum values. Performed By: #### L [id number] ####[employer] Installer: NIEVES RUIZ ([id number])[facility] ([facility])[address] [place] [address] Sodium [Moles/Vol] 135 mmol/L Low 136-145 [facility] Comment on above: Performed By: #### L [id number] ####[employer] Installer: NIEVES RUIZ ([id number])[facility] ([facility])[address] [place] [address] Urea nitrogen [Mass/Vol] 21 mg/dL Normal 9-23 [facility] Comment on above: Performed By: #### L [id number] ####[employer] Installer: NIEVES RUIZ ([id number])[facility])[address] [place] [address] Basic metabolic 1998 panelon 05-17-2025 Anion gap [Moles/Vol] 6 mmol/L 3 - 13 mmol/L [facility] Calcium [Mass/Vol] 7.9 mg/dL Low 8.8 - 10. 0 mg/dL [facility] Chloride [Moles/Vol] 109 mmol/L High 98 - 10 7 mmol/L [facility] CO2 [Moles/Vol] 20 mmol/L Low 23 - 31 mmol/L [facility] Creatinine [Mass/Vol] 0.64 mg/dL 0.58 - 1.12 mg/dL [facility] GFR/1.73 sq M.predicted (S/P/Bld) [Vol rate/Area] - PINF [facility] Glucose [Mass/Vol] 127 mg/dL High 82 - 115 mg/dL [facility] Interpretation and review of laboratory results Abnormal [facility] Potassium [Moles/Vol] 4.3 mmol/L 3.5 - 5.1 mmol/L [facility] Sodium [Moles/Vol] 135 mmol/L Low 136 - 145 mmol/L [facility] Urea nitrogen [Mass/Vol] 21 mg/dL 9 - 23 mg/dL [facility] CBC W Auto Differential pane l (Bld)on 05-17-2025 Basophils (Bld) [#/Vol] 0 10*3/uL 0.0 - 0.2 10*3/uL [facility] Basophils/100 WBC (Bld) 0.5 % 0.0 - 2.0 % [facility] Eosinophils (Bld) [#/Vol] 0.2 10*3/uL 0. 0 - 0.5 10*3/uL [facility] Eosinophils/100 WBC (Bld) 2.2 % 0.0 - 6.0 % [facility] Erythrocyte distribution width (RBC) [Ratio] 13.3 % 11.5 - 15.0 % [facility] Hematocrit (Bld) [Volume fraction] 31.7 % Low 35.0 - 47.0 % [facility] Hemoglobin (Bld) [Mass/Vol] 10.3 g/dL Low 11.7 - 16.0 g/dL [facility] Immature granulocytes (Bld) [#/Vol] 0.1 10*3/uL High NINF - 0.1 10*3/uL [facility] Immature granulocytes/100 WBC (Bld) 1.2 % 0.0 - 2.0 % [facility] Interpretation and review of laboratory results Abnormal [facility] th Lymphocytes (Bld) [#/Vol] 0.9 10*3/uL Low 1. 0 - 4.3 10*3/uL [facility] Lymphocytes/100 WBC (Bld) 10.9 % Low 15 .0 - 45.0 % [facility] MCH (RBC) [Entitic mass] 30 pg 26. 0 - 34.0 pg [facility] MCHC (RBC) [Mass/Vol] 32.5 % 30.5 - 36.0 % [facility] MCV (RBC) [Entitic vol] 92.4 fL 77.0 - 99.0 fL [facility] Monocytes (Bld) [#/Vol] 0.7 10*3/uL 0.0 - 0.9 10*3/uL [facility] Monocytes/100 WBC (Bld) 8.1 % 5.0 - 13.0 % [facility] Neutrophils (Bld) [#/Vol] 6.4 10*3/uL 1. 8 - 7.5 10*3/uL [facility] Neutrophils/100 WBC (Bld) 77.1 % 38 .0 - 82.0 % [facility] Nucleated RBC/100 WBC (Bld) [Ratio] 0 % [facility] Platelet mean volume (Bld) [Entitic vol] 11.1 fL 9.0 - 12.7 fL [facility] Platelets (Bld) [#/Vol] 293 10*3/uL 140 - 440 10*3/uL [facility] RBC (Bld) [#/Vol] 3.43 10*6/uL Low 3.80 - 5.2 0 10*6/uL [facility] WBC (Bld) [#/Vol] 8.3 10*3/uL 3.6 - 10.7 10*3/uL [facility] CBC WITH AUTO DIFFERENTIALon 05-17-2025 Basophils (Bld) [#/Vol] 0.0 10*3/uL Normal 0.0-0.2 [facility] Comment on above: Performed By: #### L [id number] ####[employer] Installer: NIEVES RUIZ ([id number])[facility])[address] [place] [address] Basophils/100 WBC (Bld) 0.5 % Normal 0.0-2.0 S [facility] Comment on above: Performed By: #### L [id number] ####[employer] Installer: NIEVES RUIZ ([id number])[facility] ([facility])[address] [place] [address] [place] Eosinophils (Bld) [#/Vol] 0.2 10*3/uL Normal 0.0-0.5 [facility] Comment on above: Performed By: #### L [id number] ####[employer] Installer: NIEVES RUIZ ([id number])[facility])[address] [place] [address] [place] Eosinophils/100 WBC (Bld) 2.2 % Normal 0.0-6.0 [facility] Comment on above: Performed By: #### L [id number] ####[employer] Installer: NIEVES RUIZ ([id number])[address] Erythrocyte distribution width (RBC) [Ratio] 13.3 % Normal 11.5-15.0 [facility] Comment on above: Performed By: #### L [id number] ####[employer] Installer: NIEVES RUIZ ([id number])[address] Hematocrit (Bld) [Volume fraction] 31.7 % Low 35.0-47.0 [facility] Comment on above: Performed By: #### L [id number] ####[employer] Installer: NIEVES RUIZ ([id number])[address] Hemoglobin (Bld) [Mass/Vol] 10.3 g/dL Low 11.7-16.0 [facility] Comment on above: Performed By: #### L [id number] ####[employer] Installer: NIEVES RUIZ ([id number])[address] IMMATURE GRANS % 1.2 % Normal 0.0-2.[address] [facility] Comment on above: Performed By: #### L [id number] ####[employer] Installer: NIEVES RUIZ ([id number])[address] IMMATURE GRANS ABSOLUTE 0.1 10*3/uL High <0.1 [facility] Comment on above: Performed By: #### L [id number] ####[employer] Installer: NIEVES RUIZ ([id number])[address] Lymphocytes (Bld) [#/Vol] 0.9 10*3/uL Low 1.0-4.3 [facility] Comment on above: Performed By: #### L [id number] ####[employer] Installer: NIEVES RUIZ ([id number])[facility])[address] [place] [address] Lymphocytes/100 WBC (Bld) 10.9 % Low 15.0-45.0 [facility] Comment on above: Performed By: #### L [id number] ####[employer] Installer: NIEVES RUIZ ([id number])[facility])[address] [place] [address] MCH (RBC) [Entitic mass] 30.0 pg Normal 26.0-34.0 [facility] Comment on above: Performed By: #### L [id number] ####[employer] Installer: NIEVES RUIZ ([id number])[facility])[address] [place] [address] MCHC 32.5 % Normal 30.5-36.0 [facility] Comment on above: Performed By: #### L [id number] ####[employer] Installer: NIEVES RUIZ ([id number])[facility] ([facility])[address] [place] [address] MCV (RBC) [Entitic vol] 92.4 fL Normal 77.0-99.0 [facility] Comment on above: Performed By: #### L [id number] ####[employer] Installer: NIEVES RUIZ ([id number])[facility])[address] [place] [address] Monocytes (Bld) [#/Vol] 0.7 10*3/uL Normal 0.0-0.9 [facility] Comment on above: Performed By: #### L [id number] ####[employer] Installer: NIEVES RUIZ ([id number])[facility])[address] [place] [address] Monocytes/100 WBC (Bld) 8.1 % Normal 5.0-13.0 [facility] Comment on above: Performed By: #### L [id number] ####[employer] Installer: NIEVES RUIZ ([id number])[facility])[address] [place] [address] NEUTROPHILS ABSOLUTE 6.4 10*3/uL Normal 1.8-7.5 [facility] Comment on above: Performed By: #### L [id number] ####[employer] Installer: NIEVES RUIZ ([id number])[facility] ([facility])[address] [place] [address] Neutrophils/100 WBC (Bld) 77.1 % Normal 38.0-82.0 [facility] Comment on above: Performed By: #### L [id number] ####[employer] Installer: NIEVES RUIZ ([id number])[facility] ([facility])[address] [place] [address] NRBC 0.0 /100 WBCs Normal 0.0-2.0 [facility] Comment on above: Performed By: #### L [id number] ####[employer] Installer: NIEVES RUIZ ([id number])[facility] ([facility])[address] [place] [address] Platelet mean volume (Bld) [Entitic vol] 11.1 fL Normal 9.0-12.7 [facility] Comment on above: Performed By: #### L [id number] ####[employer] Installer: NIEVES RUIZ ([id number])[facility] ([facility])[address] [place] [address] Platelets (Bld) [#/Vol] 293 10*3/uL Normal 140-440 [facility] Comment on above: Performed By: #### L [id number] ####[employer] Installer: NIEVES RUIZ ([id number])[facility] ([facility])[address] [place] [address] [place] RBC (Bld) [#/Vol] 3.43 10*6/uL Low 3.80-5.20 [facility] Comment on above: Performed By: #### L [id number] ####[employer] Installer: NIEVES RUIZ ([id number])[facility] ([facility])[address] [place] [address] [place] WBC (Bld) [#/Vol] 8.3 10*3/uL Normal 3.6-10.7 [facility] Comment on above: Performed By: #### L [id number] ####[employer] Installer: NIEVES RUIZ ([id number])[facility])[address] [place] [address] Laboratory - Chemistry and C hemistry - challengeon 05-17-2025 Glucose [Mass/Vol] 184 mg/dL High 70 - 100 mg/dL [facility] Glucose [Mass/Vol] 203 mg/dL High 70 - 100 mg/dL [facility] Glucose [Mass/Vol] 169 mg/dL High 70 - 100 mg/dL [facility] Glucose [Mass/Vol] 126 mg/dL High 70 - 100 mg/dL [facility] No Panel Informationon 05-17 Interpretation and review of laboratory results Abnormal [facility] Interpretation and review of laboratory results Abnormal [facility] Interpretation and review of laboratory results Abnormal [facility] Interpretation and review of laboratory results Abnormal [facility] Progress Noteon 05-17-2025 Progress Note Normal [facility] Progress Note Normal [facility] Progress Note Normal [facility] BASIC METABOLIC PANELon 04-23 Anion gap [Moles/Vol] 6 mmol/L Normal 3-13 [facility] Comment on above: Performed By: #### L [id number] ####[employer] Installer: NIEVES RUIZ ([id number])[facility] ([facility])[address] [place] [address] Calcium [Mass/Vol] 8.2 mg/dL Low 8.8-10.0 [facility] Comment on above: Performed By: #### L AB15 ####[employer] Installer: NIEVES RUIZ ([id number])[facility])[address] [place] [address] Chloride [Moles/Vol] 110 mmol/L High 98-107 [facility] Comment on above: Performed By: #### L AB15 ####[employer] Installer: NIEVES RUIZ ([id number])[facility])[address] [place] [address] CO2 [Moles/Vol] 21 mmol/L Low 23-31 [facility] Comment on above: Performed By: #### L AB15 ####[employer] Installer: NIEVES RUIZ ([id number])[facility] [place] [address] Creatinine [Mass/Vol] 0.70 mg/dL Normal 0.58-1.12 [facility] Comment on above: Performed By: #### L [id number] ####[employer] Installer: NIEVES RUIZ ([id number])[facility] ([facility])[address] [place] [address] GLOMERULAR FILTRATION RATE ML/MIN/1.73 SQ M.PREDICTED >90.0 Normal >60.0 [facility] Comment on above: Result Comment: Calc ulation based on the Chronic Kidney Disease Epidemiology Collaboration (CKD-EPI) equation refit without adjustment for race Performed By: #### L AB15 ####[employer] Installer: NIEVES RUIZ ([id number])[facility] [place] [address] Glucose [Mass/Vol] 98 mg/dL Normal 82-115 [facility] Comment on above: Performed By: #### L AB15 ####[employer] Installer: NIEVES RUIZ ([id number])[facility] ([facility])[address] [place] [address] Potassium [Moles/Vol] 3.8 mmol/L Normal 3.5-5.1 [facility] Comment on above: Result Comment: [facility] potassium values may be up to 0.5 mmol/L lower than serum values. Performed By: #### L AB15 ####[employer] Installer: NIEVES RUIZ ([id number])[facility] ([facility])[address] [place] [address] [place] Sodium [Moles/Vol] 137 mmol/L Normal 136-145 [facility] Comment on above: Performed By: #### L [id number] ####[employer] Installer: NIEVES RUIZ ([id number])[facility] ([facility])[address] Urea nitrogen [Mass/Vol] 17 mg/dL Normal - [facility] Comment on above: Performed By: #### L [id number] ####[employer] Installer: NIEVES RUIZ ([id number])[facility] ([facility])[address] [place] [address] Bacteria identified Cx Nom ( Bld)on 05-16-2025 Interpretation and review of laboratory results Normal [facility] Basic metabolic 1998 panelon 05-16-2025 Anion gap [Moles/Vol] 6 mmol/L 3 - 13 mmol/L [facility] Calcium [Mass/Vol] 8.2 mg/dL Low 8.8 - 10. 0 mg/dL [facility] Chloride [Moles/Vol] 110 mmol/L High 98 - 10 7 mmol/L [facility] CO2 [Moles/Vol] 21 mmol/L Low 23 - 31 mmol/L [facility] Creatinine [Mass/Vol] 0.7 mg/dL 0.58 - 1.12 mg/dL [facility] GFR/1.73 sq M.predicted (S/P/Bld) [Vol rate/Area] - PINF [facility] Glucose [Mass/Vol] 98 mg/dL 82 - 115 mg/dL [facility] Interpretation and review of laboratory results Abnormal [facility] Potassium [Moles/Vol] 3.8 mmol/L 3.5 - 5.1 mmol/L [facility] Sodium [Moles/Vol] 137 mmol/L 136 - 145 mmol/L [facility] Urea nitrogen [Mass/Vol] 17 mg/dL 9 - 23 mg/dL [facility] CBC W Auto Differential pane l (Bld)on 05-16-2025 Basophils (Bld) [#/Vol] 0.1 10*3/uL 0.0 - 0.2 10*3/uL [facility] Basophils/100 WBC (Bld) 0.6 % 0.0 - 2.0 % [facility] Eosinophils (Bld) [#/Vol] 0.2 10*3/uL 0. 0 - 0.5 10*3/uL [facility] Eosinophils/100 WBC (Bld) 2.5 % 0.0 - 6.0 % [facility] Erythrocyte distribution width (RBC) [Ratio] 13.2 % 11.5 - 15.0 % [facility] Hematocrit (Bld) [Volume fraction] 33.5 % Low 35.0 - 47.0 % [facility] Hemoglobin (Bld) [Mass/Vol] 10.6 g/dL Low 11.7 - 16.0 g/dL [facility] Immature granulocytes (Bld) [#/Vol] 0.1 10*3/uL High NINF - 0.1 10*3/uL [facility] Immature granulocytes/100 WBC (Bld) 1.6 % 0.0 - 2.0 % [facility] Interpretation and review of laboratory results Abnormal [facility] th Lymphocytes (Bld) [#/Vol] 0.9 10*3/uL Low 1. 0 - 4.3 10*3/uL [facility] Lymphocytes/100 WBC (Bld) 10.6 % Low 15 .0 - 45.0 % [facility] MCH (RBC) [Entitic mass] 29.5 pg 26. 0 - 34.0 pg [facility] MCHC (RBC) [Mass/Vol] 31.6 % 30.5 - 36.0 % [facility] MCV (RBC) [Entitic vol] 93.3 fL 77.0 - 99.0 fL [facility] Monocytes (Bld) [#/Vol] 0.5 10*3/uL 0.0 - 0.9 10*3/uL [facility] Monocytes/100 WBC (Bld) 6 % 5.0 - 13.0 % [facility] Neutrophils (Bld) [#/Vol] 6.6 10*3/uL 1. 8 - 7.5 10*3/uL [facility] Neutrophils/100 WBC (Bld) 78.7 % 38 .0 - 82.0 % [facility] Nucleated RBC/100 WBC (Bld) [Ratio] 0 % [facility] Platelet mean volume (Bld) [Entitic vol] 11.1 fL 9.0 - 12.7 fL [facility] Platelets (Bld) [#/Vol] 305 10*3/uL 140 - 440 10*3/uL [facility] RBC (Bld) [#/Vol] 3.59 10*6/uL Low 3.80 - 5.2 0 10*6/uL [facility] WBC (Bld) [#/Vol] 8.4 10*3/uL 3.6 - 10.7 10*3/uL [facility] CBC WITH AUTO DIFFERENTIALon 05-16-2025 Basophils (Bld) [#/Vol] 0.1 10*3/uL Normal 0.0-0.2 [facility] Comment on above: Performed By: #### L [id number] ####[employer] Installer: NIEVES RUIZ ([id number])[facility])[address] [place] [address] Basophils/100 WBC (Bld) 0.6 % Normal 0.0-2.0 [facility] Comment on above: Performed By: #### L [id number] ####[employer] Installer: NIEVES RUIZ ([id number])[facility])[address] [place] [address] Eosinophils (Bld) [#/Vol] 0.2 10*3/uL Normal 0.0-0.5 [facility] Comment on above: Performed By: #### L [id number] ####[employer] Installer: NIEVES RUIZ ([id number])[facility])[address] [place] [address] Eosinophils/100 WBC (Bld) 2.5 % Normal 0.0-6.0 [facility] Comment on above: Performed By: #### L [id number] ####[employer] Installer: NIEVES RUIZ ([id number])[facility])[address] [place] [address] Erythrocyte distribution width (RBC) [Ratio] 13.2 % Normal 11.5-15.0 [facility] Comment on above: Performed By: #### L [id number] ####[employer] Installer: NIEVES RUIZ ([id number])[facility])[address] [place] [address] Hematocrit (Bld) [Volume fraction] 33.5 % Low 35.0-47.0 [facility] Comment on above: Performed By: #### L [id number] ####[employer] Installer: NIEVES [id number])[facility])[address] [place] [address] Hemoglobin (Bld) [Mass/Vol] 10.6 g/dL Low 11.7-16.0 [facility] Comment on above: Performed By: #### L [id number] ####[employer] Installer: NIEVES RUIZ ([id number])[facility])[address] [place] [address] IMMATURE GRANS % 1.6 % Normal 0.0-2.[address] [facility] Comment on above: Performed By: #### L [id number] ####[employer] Installer: NIEVES RUIZ ([id number])[facility])[address] [place] [address] IMMATURE GRANS ABSOLUTE 0.1 10*3/uL High <0.1 [facility] Comment on above: Performed By: #### L [id number] ####[employer] Installer: NIEVES RUIZ ([id number])[facility])[address] [place] [address] Lymphocytes (Bld) [#/Vol] 0.9 10*3/uL Low 1.0-4.3 [facility] Comment on above: Performed By: #### L [id number] ####[employer] Installer: NIEVES RUIZ ([id number])[facility])[address] [place] [address] Lymphocytes/100 WBC (Bld) 10.6 % Low 15.0-45.0 [facility] Comment on above: Performed By: #### L [id number] ####[employer] Installer: NIEVES RUIZ ([id number])[facility])[address] [place] [address] MCH (RBC) [Entitic mass] 29.5 pg Normal 26.0-34.0 [facility] Comment on above: Performed By: #### L [id number] ####[employer] Installer: NIEVES RUIZ ([id number])[facility])[address] [place] [address] MCHC 31.6 % Normal 30.5-36.0 [facility] Comment on above: Performed By: #### L [id number] ####[employer] Installer: NIEVES RUIZ ([id number])[facility])[address] [place] [address] MCV (RBC) [Entitic vol] 93.3 fL Normal 77.0-99.0 [facility] Comment on above: Performed By: #### L [id number] ####[employer] Installer: NIEVES RUIZ ([id number])[facility] ([facility])[address] [place] [address] Monocytes (Bld) [#/Vol] 0.5 10*3/uL Normal 0.0-0.9 [facility] Comment on above: Performed By: #### L [id number] ####[employer] Installer: NIEVES RUIZ ([id number])[facility])[address] [place] [address] Monocytes/100 WBC (Bld) 6.0 % Normal 5.0-13.0 [facility] Comment on above: Performed By: #### L [id number] ####[employer] Installer: NIEVES RUIZ ([id number])[facility])[address] [place] [address] NEUTROPHILS ABSOLUTE 6.6 10*3/uL Normal 1.8-7.5 [facility] Comment on above: Performed By: #### L [id number] ####[employer] Installer: NIEVES RUIZ ([id number])[facility])[address] [place] [address] Neutrophils/100 WBC (Bld) 78.7 % Normal 38.0-82.0 [facility] Comment on above: Performed By: #### L [id number] ####[employer] Installer: NIEVES RUIZ ([id number])[facility])[address] [place] [address] NRBC 0.0 /100 WBCs Normal 0.0-2.0 [facility] Comment on above: Performed By: #### L [id number] ####[employer] Installer: NIEVES RUIZ ([id number])[facility] ([facility])[address] [place] [address] Platelet mean volume (Bld) [Entitic vol] 11.1 fL Normal 9.0-12.7 [facility] Comment on above: Performed By: #### L [id number] ####[employer] Installer: NIEVES RUIZ ([id number])[facility] ([facility])[address] [place] [address] Platelets (Bld) [#/Vol] 305 10*3/uL Normal 140-440 [facility] Comment on above: Performed By: #### L [id number] ####[employer] Installer: NIEVES RUIZ ([id number])[facility] ([facility])[address] [place] [address] RBC (Bld) [#/Vol] 3.59 10*6/uL Low 3.80-5.20 [facility] Comment on above: Performed By: #### L [id number] ####[employer] Installer: NIEVES RUIZ ([id number])[facility] ([facility])[address] [place] [address] WBC (Bld) [#/Vol] 8.4 10*3/uL Normal 3.6-10.7 [facility] Comment on above: Performed By: #### L [id number] ####[employer] Installer: NIEVES RUIZ ([id number])[facility] ([facility])[address] [place] [address] Consulton 05-16-2025 Consult Normal [facility] - Chemistry and C hemistry - challengeon 05-16-2025 Glucose [Mass/Vol] 190 mg/dL High 70 - 100 mg/dL [facility] Glucose [Mass/Vol] 209 mg/dL High 70 - 100 mg/dL [facility] Glucose [Mass/Vol] 173 mg/dL High 70 - 100 mg/dL [facility] Glucose [Mass/Vol] 123 mg/dL High 70 - 100 mg/dL [facility] Laboratory - Microbiology an d Antimicrobial susceptibilityon 05-16-2025 Bacteria identified Cx Nom (Bld) No growth at 5 days [facility] No Panel Informationon 05-16 Interpretation and review of laboratory results Abnormal [facility] Interpretation and review of laboratory results Abnormal [facility] Interpretation and review of laboratory results Abnormal [facility] Interpretation and review of laboratory results Abnormal [facility] Progress Noteon 05-16-2025 Progress Note Normal [facility] [id number] 05-15-2025 [id number] Normal [facility] BASIC METABOLIC PANELon 04-23 Anion gap [Moles/Vol] 4 mmol/L Normal 3-13 [facility] Comment on above: Performed By: #### L [id number] ####[employer] Installer: NIEVES RUIZ ([id number])[facility] ([facility])[address] [place] [address] Calcium [Mass/Vol] 8.3 mg/dL Low 8.8-10.0 [facility] Comment on above: Performed By: #### L [id number] ####[employer] Installer: NIEVES RUIZ ([id number])[facility] ([facility])[address] [place] [address] Chloride [Moles/Vol] 111 mmol/L High 98-107 [facility] Comment on above: Performed By: #### L [id number] ####[employer] Installer: NIEVES RUIZ ([id number])[facility] ([facility])[address] [place] [address] [place] CO2 [Moles/Vol] 22 mmol/L Low 23-31 [facility] Comment on above: Performed By: #### L [id number] ####[employer] Installer: NIEVES RUIZ ([id number])[facility] ([facility])[address] [place] [address] Creatinine [Mass/Vol] 0.66 mg/dL Normal 0.58-1.12 [facility] Comment on above: Performed By: #### L [id number] ####[employer] Installer: NIEVES [id number])[facility])[address] [place] [address] GLOMERULAR FILTRATION RATE ML/MIN/1.73 SQ M.PREDICTED >90.0 Normal >60.0 [facility] Comment on above: Result Comment: Calc ulation based on the Chronic Kidney Disease Epidemiology Collaboration (CKD-EPI) equation refit without adjustment for race Performed By: #### L [id number] ####[employer] Installer: NIEVES RUIZ ([id number])[facility])[address] [place] [address] Glucose [Mass/Vol] 74 mg/dL Low 82-115 [facility] Comment on above: Performed By: #### L [id number] ####[employer] Installer: NIEVES RUIZ ([id number])[address] Potassium [Moles/Vol] 3.6 mmol/L Normal 3.5-5.1 [facility] Comment on above: Result Comment: [facility] potassium values may be up to 0.5 mmol/L lower than serum values. Performed By: #### L [id number] ####[employer] Installer: NIEVES RUIZ ([id number])[facility])[address] [place] [address] Sodium [Moles/Vol] 137 mmol/L Normal 136-145 [facility] Comment on above: Performed By: #### L [id number] ####[employer] Installer: NIEVES RUIZ ([id number])[address] Urea nitrogen [Mass/Vol] 19 mg/dL Normal 9-23 [facility] Comment on above: Performed By: #### L [id number] ####[employer] Installer: NIEVES RUIZ ([id number])[address] Basic metabolic 1998 panelon 05-15-2025 Anion gap [Moles/Vol] 4 mmol/L 3 - 13 mmol/L [facility] Calcium [Mass/Vol] 8.3 mg/dL Low 8.8 - 10. 0 mg/dL [facility] Chloride [Moles/Vol] 111 mmol/L High 98 - 10 7 mmol/L [facility] CO2 [Moles/Vol] 22 mmol/L Low 23 - 31 mmol/L [facility] Creatinine [Mass/Vol] 0.66 mg/dL 0.58 - 1.12 mg/dL [facility] GFR/1.73 sq M.predicted (S/P/Bld) [Vol rate/Area] - PINF [facility] Glucose [Mass/Vol] 74 mg/dL Low 82 - 115 mg/dL [facility] Interpretation and review of laboratory results Abnormal [facility] Potassium [Moles/Vol] 3.6 mmol/L 3.5 - 5.1 mmol/L [facility] Sodium [Moles/Vol] 137 mmol/L 136 - 145 mmol/L [facility] Urea nitrogen [Mass/Vol] 19 mg/dL 9 - 23 mg/dL [facility] CBC W Auto Differential pane l (Bld)on 05-15-2025 Basophils (Bld) [#/Vol] 0 10*3/uL 0.0 - 0.2 10*3/uL [facility] Basophils/100 WBC (Bld) 0.5 % 0.0 - 2.0 % [facility] Eosinophils (Bld) [#/Vol] 0.2 10*3/uL 0. 0 - 0.5 10*3/uL [facility] Eosinophils/100 WBC (Bld) 2.4 % 0.0 - 6.0 % [facility] Erythrocyte distribution width (RBC) [Ratio] 13.1 % 11.5 - 15.0 % [facility] Hematocrit (Bld) [Volume fraction] 33.2 % Low 35.0 - 47.0 % [facility] Hemoglobin (Bld) [Mass/Vol] 10.6 g/dL Low 11.7 - 16.0 g/dL [facility] Immature granulocytes (Bld) [#/Vol] 0.1 10*3/uL High NINF - 0.1 10*3/uL [facility] Immature granulocytes/100 WBC (Bld) 1 % 0.0 - 2.0 % [facility] Interpretation and review of laboratory results Abnormal [facility] th Lymphocytes (Bld) [#/Vol] 0.8 10*3/uL Low 1. 0 - 4.3 10*3/uL [facility] Lymphocytes/100 WBC (Bld) 9.3 % Low 15 .0 - 45.0 % [facility] MCH (RBC) [Entitic mass] 29.8 pg 26. 0 - 34.0 pg [facility] MCHC (RBC) [Mass/Vol] 31.9 % 30.5 - 36.0 % [facility] MCV (RBC) [Entitic vol] 93.3 fL 77.0 - 99.0 fL [facility] Monocytes (Bld) [#/Vol] 0.5 10*3/uL 0.0 - 0.9 10*3/uL [facility] Monocytes/100 WBC (Bld) 6 % 5.0 - 13.0 % [facility] Neutrophils (Bld) [#/Vol] 6.6 10*3/uL 1. 8 - 7.5 10*3/uL [facility] Neutrophils/100 WBC (Bld) 80.8 % 38 .0 - 82.0 % [facility] Nucleated RBC/100 WBC (Bld) [Ratio] 0 % [facility] Platelet mean volume (Bld) [Entitic vol] 11.6 fL 9.0 - 12.7 fL [facility] Platelets (Bld) [#/Vol] 323 10*3/uL 140 - 440 10*3/uL [facility] RBC (Bld) [#/Vol] 3.56 10*6/uL Low 3.80 - 5.2 0 10*6/uL [facility] WBC (Bld) [#/Vol] 8.2 10*3/uL 3.6 - 10.7 10*3/uL [facility] CBC WITH AUTO DIFFERENTIALon 05-15-2025 Basophils (Bld) [#/Vol] 0.0 10*3/uL Normal 0.0-0.2 [facility] Comment on above: Performed By: #### L [id number] ####[employer] Installer: NIEVES RUIZ ([id number])[facility] ([address] Basophils/100 WBC (Bld) 0.5 % Normal 0.0-2.0 [facility] Comment on above: Performed By: #### L [id number] ####[employer] Installer: NIEVES RUIZ ([id number])[facility])[address] [place] [address] Eosinophils (Bld) [#/Vol] 0.2 10*3/uL Normal 0.0-0.5 [facility] Comment on above: Performed By: #### L [id number] ####[employer] Installer: NIEVES RUIZ ([id number])[facility])[address] [place] [address] Eosinophils/100 WBC (Bld) 2.4 % Normal 0.0-6.0 [facility] Comment on above: Performed By: #### L [id number] ####[employer] Installer: NIEVES RUIZ ([id number])[address] Erythrocyte distribution width (RBC) [Ratio] 13.1 % Normal 11.5-15.0 [facility] Comment on above: Performed By: #### L [id number] ####[employer] Installer: NIEVES RUIZ ([id number])[facility])[address] [place] [address] Hematocrit (Bld) [Volume fraction] 33.2 % Low 35.0-47.0 [facility] Comment on above: Performed By: #### L [id number] ####[employer] Installer: NIEVES RUIZ ([id number])[address] Hemoglobin (Bld) [Mass/Vol] 10.6 g/dL Low 11.7-16.0 [facility] Comment on above: Performed By: #### L [id number] ####[employer] Installer: NIEVES RUIZ ([id number])[facility])[address] [place] [address] IMMATURE GRANS % 1.0 % Normal 0.0-2.[address] [facility] Comment on above: Performed By: #### L [id number] ####[employer] Installer: NIEVES RUIZ ([id number])[address] IMMATURE GRANS ABSOLUTE 0.1 10*3/uL High <0.1 [facility] Comment on above: Performed By: #### L [id number] ####[employer] Installer: NIEVES RUIZ ([id number])[facility])[address] [place] [address] Lymphocytes (Bld) [#/Vol] 0.8 10*3/uL Low 1.0-4.3 [facility] Comment on above: Performed By: #### L [id number] ####[employer] Installer: NIEVES RUIZ ([id number])[facility])[address] [place] [address] Lymphocytes/100 WBC (Bld) 9.3 % Low 15.0-45.0 [facility] Comment on above: Performed By: #### L [id number] ####[employer] Installer: NIEVES RUIZ ([id number])[facility])[address] [place] [address] MCH (RBC) [Entitic mass] 29.8 pg Normal 26.0-34.0 [facility] Comment on above: Performed By: #### L [id number] ####[employer] Installer: NIEVES RUIZ ([id number])[facility])[address] [place] [address] MCHC 31.9 % Normal 30.5-36.0 [facility] Comment on above: Performed By: #### L [id number] ####[employer] Installer: NIEVES RUIZ ([id number])[facility])[address] [place] [address] MCV (RBC) [Entitic vol] 93.3 fL Normal 77.0-99.0 [facility] Comment on above: Performed By: #### L [id number] ####[employer] Installer: NIEVES RUIZ ([id number])[facility])[address] [place] [address] Monocytes (Bld) [#/Vol] 0.5 10*3/uL Normal 0.0-0.9 [facility] Comment on above: Performed By: #### L [id number] ####[employer] Installer: NIEVES RUIZ ([id number])[facility] ([facility])[address] [place] [address] Monocytes/100 WBC (Bld) 6.0 % Normal 5.0-13.0 [facility] Comment on above: Performed By: #### L [id number] ####[employer] Installer: NIEVES RUIZ ([id number])[facility] ([facility])[address] [place] [address] NEUTROPHILS ABSOLUTE 6.6 10*3/uL Normal 1.8-7.5 [facility] Comment on above: Performed By: #### L [id number] ####[employer] Installer: NIEVES RUIZ ([id number])[facility] ([facility])[address] [place] [address] Neutrophils/100 WBC (Bld) 80.8 % Normal 38.0-82.0 [facility] Comment on above: Performed By: #### L [id number] ####[employer] Installer: NIEVES RUIZ ([id number])[facility] ([facility])[address] [place] [address] NRBC 0.0 /100 WBCs Normal 0.0-2.0 [facility] Comment on above: Performed By: #### L [id number] ####[employer] Installer: NIEVES RUIZ ([id number])[facility] ([facility])[address] [place] [address] Platelet mean volume (Bld) [Entitic vol] 11.6 fL Normal 9.0-12.7 [facility] Comment on above: Performed By: #### L [id number] ####[employer] Installer: NIEVES RUIZ ([id number])[facility] ([facility])[address] [place] [address] [place] Platelets (Bld) [#/Vol] 323 10*3/uL Normal 140-440 [facility] Comment on above: Performed By: #### L [id number] ####[employer] Installer: NIEVES RUIZ ([id number])[facility] ([facility])[address] [place] [address] RBC (Bld) [#/Vol] 3.56 10*6/uL Low 3.80-5.20 [facility] Comment on above: Performed By: #### L [id number] ####[employer] Installer: NIEVES RUIZ ([id number])[facility])[address] [place] [address] WBC (Bld) [#/Vol] 8.2 10*3/uL Normal 3.6-10.7 [facility] Comment on above: Performed By: #### L [id number] ####[employer] Installer: NIEVES RUIZ ([id number])[facility] [place])[address] [place] [address] Laboratory - Chemistry and C hemistry - challengeon 05-15-2025 Glucose [Mass/Vol] 155 mg/dL High 70 - 100 mg/dL [facility] Glucose [Mass/Vol] 178 mg/dL High 70 - 100 mg/dL [facility] Glucose [Mass/Vol] 192 mg/dL High 70 - 100 mg/dL [facility] Glucose [Mass/Vol] 77 mg/dL 70 - 100 mg/dL [facility] No Panel Informationon 05-15 Interpretation and review of laboratory results Abnormal [facility] Interpretation and review of laboratory results Abnormal [facility] Interpretation and review of laboratory results Abnormal [facility] Interpretation and review of laboratory results Normal [facility] Progress Noteon 05-15-2025 Progress Note Normal [facility] Progress Note Normal [facility] Progress Note Normal [facility] Progress Note Normal [facility] BASIC METABOLIC PANELon 04-23 Anion gap [Moles/Vol] 7 mmol/L Normal 3-13 [facility] Comment on above: Performed By: #### L [id number], LAB15, [id number] ####[employer] Installer: NIEVES RUIZ ([id number])[facility] ([facility])[address] [place] [address] Calcium [Mass/Vol] 8.0 mg/dL Low 8.8-10.0 [facility] Comment on above: Performed By: #### Wayne HERNANDEZ21, LAB15, [id number] ####[employer] Installer: NIEVES RUIZ ([id number])[facility] [place] [address] Chloride [Moles/Vol] 113 mmol/L High 98-107 [facility] Comment on above: Performed By: #### Wayne HERNANDEZ21, LAB15, [id number] ####[employer] Installer: NIEVES RUIZ ([id number])[facility] ([facility])[address] [place] [address] CO2 [Moles/Vol] 20 mmol/L Low 23-31 [facility] Comment on above: Performed By: #### Wayne CAICEDO, LAB15, [id number] ####[employer] Installer: NIEVES RUIZ ([id number])[facility] ([facility])[address] [place] [address] Creatinine [Mass/Vol] 0.70 mg/dL Normal 0.58-1.12 [facility] Comment on above: Performed By: #### Wayne CAICEDO, LAB15, [id number] ####[employer] Installer: NIEVES RUIZ ([id number])[facility] ([facility])[address] [place] [address] GLOMERULAR FILTRATION RATE ML/MIN/1.73 SQ M.PREDICTED >90.0 Normal >60.0 [facility] Comment on above: Result Comment: Calc ulation based on the Chronic Kidney Disease Epidemiology Collaboration (CKD-EPI) equation refit without adjustment for race Performed By: #### Wayne HERNANDEZ21, LAB15, [id number] ####[employer] Installer: NIEVES RUIZ ([id number])[facility])[address] [place] [address] Glucose [Mass/Vol] 115 mg/dL Normal 82-115 [facility] Comment on above: Performed By: #### Wayne CAICEDO, LAB15, [id number] ####[employer] Installer: NIEVES [id number])[facility] ([facility])[address] [place] [address] Potassium [Moles/Vol] 3.4 mmol/L Low 3.5-5.1 [facility] Comment on above: Result Comment: [facility] potassium values may be up to 0.5 mmol/L lower than serum values. Performed By: #### L [id number], LAB15, [id number] ####[employer] Installer: NIEVES RUIZ ([id number])[facility] ([facility])[address] [place] [address] Sodium [Moles/Vol] 140 mmol/L Normal 136-145 [facility] Comment on above: Performed By: #### L [id number], LAB15, [id number] ####[employer] Installer: NIEVES RUIZ ([id number])[facility] ([facility])[address] [place] [address] Urea nitrogen [Mass/Vol] 16 mg/dL Normal 9-23 [facility] Comment on above: Performed By: #### L [id number], LAB15, [id number] ####[employer] Installer: NIEVES RUIZ ([id number])[facility] ([facility])[address] [place] [address] Basic metabolic 1998 panelon 05-14-2025 Anion gap [Moles/Vol] 7 mmol/L 3 - 13 mmol/L [facility] Calcium [Mass/Vol] 8 mg/dL Low 8.8 - 10. 0 mg/dL [facility] Chloride [Moles/Vol] 113 mmol/L High 98 - 10 7 mmol/L [facility] CO2 [Moles/Vol] 20 mmol/L Low 23 - 31 mmol/L [facility] Creatinine [Mass/Vol] 0.7 mg/dL 0.58 - 1.12 mg/dL [facility] GFR/1.73 sq M.predicted (S/P/Bld) [Vol rate/Area] - PINF [facility] Glucose [Mass/Vol] 115 mg/dL 82 - 115 mg/dL [facility] Interpretation and review of laboratory results Abnormal [facility] Potassium [Moles/Vol] 3.4 mmol/L Low 3.5 - 5.1 mmol/L [facility] Sodium [Moles/Vol] 140 mmol/L 136 - 145 mmol/L [facility] Urea nitrogen [Mass/Vol] 16 mg/dL 9 - 23 mg/dL [facility] CBC W Auto Differential pane l (Bld)on 05-14-2025 Basophils (Bld) [#/Vol] 0 10*3/uL 0.0 - 0.2 10*3/uL [facility] Basophils/100 WBC (Bld) 0.5 % 0.0 - 2.0 % [facility] Eosinophils (Bld) [#/Vol] 0.2 10*3/uL 0. 0 - 0.5 10*3/uL [facility] Eosinophils/100 WBC (Bld) 2.2 % 0.0 - 6.0 % [facility] Erythrocyte distribution width (RBC) [Ratio] 13.2 % 11.5 - 15.0 % [facility] Hematocrit (Bld) [Volume fraction] 30 % Low 35.0 - 47.0 % [facility] Hemoglobin (Bld) [Mass/Vol] 9.6 g/dL Low 11.7 - 16.0 g/dL [facility] Immature granulocytes (Bld) [#/Vol] 0.1 10*3/uL High NINF - 0.1 10*3/uL [facility] Immature granulocytes/100 WBC (Bld) 0.7 % 0.0 - 2.0 % [facility] Interpretation and review of laboratory results Abnormal [facility] th Lymphocytes (Bld) [#/Vol] 0.7 10*3/uL Low 1. 0 - 4.3 10*3/uL [facility] Lymphocytes/100 WBC (Bld) 8.4 % Low 15 .0 - 45.0 % [facility] MCH (RBC) [Entitic mass] 29.9 pg 26. 0 - 34.0 pg [facility] MCHC (RBC) [Mass/Vol] 32 % 30.5 - 36.0 % [facility] MCV (RBC) [Entitic vol] 93.5 fL 77.0 - 99.0 fL [facility] Monocytes (Bld) [#/Vol] 0.5 10*3/uL 0.0 - 0.9 10*3/uL [facility] Monocytes/100 WBC (Bld) 5.7 % 5.0 - 13.0 % [facility] Neutrophils (Bld) [#/Vol] 7.2 10*3/uL 1. 8 - 7.5 10*3/uL [facility] Neutrophils/100 WBC (Bld) 82.5 % High 38 .0 - 82.0 % [facility] Nucleated RBC/100 WBC (Bld) [Ratio] 0 % [facility] Platelet mean volume (Bld) [Entitic vol] 10.9 fL 9.0 - 12.7 fL [facility] Platelets (Bld) [#/Vol] 264 10*3/uL 140 - 440 10*3/uL [facility] RBC (Bld) [#/Vol] 3.21 10*6/uL Low 3.80 - 5.2 0 10*6/uL [facility] WBC (Bld) [#/Vol] 8.7 10*3/uL 3.6 - 10.7 10*3/uL [facility] CBC WITH AUTO DIFFERENTIALon 05-14-2025 Basophils (Bld) [#/Vol] 0.0 10*3/uL Normal 0.0-0.2 [facility] Comment on above: Performed By: #### L [id number] ####[employer] Installer: NIEVES RUIZ ([id number])[facility])[address] [place] [address] Basophils/100 WBC (Bld) 0.5 % Normal 0.0-2.0 [facility] Comment on above: Performed By: #### L [id number] ####[employer] Installer: NIEVES RUIZ ([id number])[facility])[address] [place] [address] Eosinophils (Bld) [#/Vol] 0.2 10*3/uL Normal 0.0-0.5 [facility] Comment on above: Performed By: #### L [id number] ####[employer] Installer: NIEVES RUIZ ([id number])[facility])[address] [place] [address] [place] Eosinophils/100 WBC (Bld) 2.2 % Normal 0.0-6.0 [facility] Comment on above: Performed By: #### L [id number] ####[employer] Installer: NIEVES RIUZ ([id number])[facility] ([facility])[address] [place] [address] Erythrocyte distribution width (RBC) [Ratio] 13.2 % Normal 11.5-15.0 [facility] Comment on above: Performed By: #### L [id number] ####[employer] Installer: NIEVES RUIZ ([id number])[facility])[address] [place] [address] Hematocrit (Bld) [Volume fraction] 30.0 % Low 35.0-47.0 [facility] Comment on above: Performed By: #### L [id number] ####[employer] Installer: NIEVES RUIZ ([id number])[facility])[address] [place] [address] Hemoglobin (Bld) [Mass/Vol] 9.6 g/dL Low 11.7-16.0 [facility] Comment on above: Performed By: #### L [id number] ####[employer] Installer: NIEVES RUIZ ([id number])[facility] ([facility])[address] [place] [address] IMMATURE GRANS % 0.7 % Normal 0.0-2.[address] [facility] Comment on above: Performed By: #### L [id number] ####[employer] Installer: NIEVES RUIZ ([id number])[facility])[address] [place] [address] IMMATURE GRANS ABSOLUTE 0.1 10*3/uL High <0.1 [facility] Comment on above: Performed By: #### L [id number] ####[employer] Installer: NIEVES RUIZ ([id number])[facility])[address] [place] [address] Lymphocytes (Bld) [#/Vol] 0.7 10*3/uL Low 1.0-4.3 [facility] Comment on above: Performed By: #### L [id number] ####[employer] Installer: NIEVES RUIZ ([id number])[facility])[address] [place] [address] Lymphocytes/100 WBC (Bld) 8.4 % Low 15.0-45.0 [facility] Comment on above: Performed By: #### L [id number] ####[employer] Installer: NIEVES RIUZ ([id number])[facility])[address] [place] [address] MCH (RBC) [Entitic mass] 29.9 pg Normal 26.0-34.0 [facility] Comment on above: Performed By: #### L [id number] ####[employer] Installer: NIEVES RUIZ ([id number])[facility])[address] [place] [address] MCHC 32.0 % Normal 30.5-36.0 [facility] Comment on above: Performed By: #### L [id number] ####[employer] Installer: NIEVES RUIZ ([id number])[facility])[address] [place] [address] MCV (RBC) [Entitic vol] 93.5 fL Normal 77.0-99.0 [facility] Comment on above: Performed By: #### L [id number] ####[employer] Installer: NIEVES RUIZ ([id number])[facility])[address] [place] [address] Monocytes (Bld) [#/Vol] 0.5 10*3/uL Normal 0.0-0.9 [facility] Comment on above: Performed By: #### L [id number] ####[employer] Installer: NIEVES RUIZ ([id number])[facility])[address] [place] [address] Monocytes/100 WBC (Bld) 5.7 % Normal 5.0-13.0 [facility] Comment on above: Performed By: #### L [id number] ####[employer] Installer: NIEVES RUIZ ([id number])[facility])[address] [place] [address] NEUTROPHILS ABSOLUTE 7.2 10*3/uL Normal 1.8-7.5 [facility] Comment on above: Performed By: #### L [id number] ####[employer] Installer: NIEVES RUIZ ([id number])[facility] ([facility])[address] [place] [address] Neutrophils/100 WBC (Bld) 82.5 % High 38.0-82.0 [facility] Comment on above: Performed By: #### L [id number] ####[employer] Installer: NIEVES RUIZ ([id number])[facility] ([facility])[address] [place] [address] NRBC 0.0 /100 WBCs Normal 0.0-2.0 [facility] Comment on above: Performed By: #### L [id number] ####[employer] Installer: NIEVES RUIZ ([id number])[facility] ([facility])[address] [place] [address] Platelet mean volume (Bld) [Entitic vol] 10.9 fL Normal 9.0-12.7 [facility] Comment on above: Performed By: #### L [id number] ####[employer] Installer: NIEVES RUIZ ([id number])[facility] ([facility])[address] [place] [address] Platelets (Bld) [#/Vol] 264 10*3/uL Normal 140-440 [facility] Comment on above: Performed By: #### L [id number] ####[employer] Installer: NIEVES RUIZ ([id number])[facility] ([facility])[address] [place] [address] RBC (Bld) [#/Vol] 3.21 10*6/uL Low 3.80-5.20 [facility] Comment on above: Performed By: #### L [id number] ####[employer] Installer: NIEVES RUIZ ([id number])[facility] ([facility])[address] [place] [address] WBC (Bld) [#/Vol] 8.7 10*3/uL Normal 3.6-10.7 [facility] Comment on above: Performed By: #### L [id number] ####[employer] Installer: NIEVES RUIZ ([id number])[facility] ([facility])[address] [place] [address] Laboratory - Chemistry and C hemistry - challengeon 05-14-2025 Glucose [Mass/Vol] 165 mg/dL High 70 - 100 mg/dL [facility] Glucose [Mass/Vol] 141 mg/dL High 70 - 100 mg/dL [facility] Glucose [Mass/Vol] 141 mg/dL High 70 - 100 mg/dL [facility] Glucose [Mass/Vol] 130 mg/dL High 70 - 100 mg/dL [facility] Procalcitonin [Mass/Vol] 0.25 ng/mL High ISAEL F - 0.07 ng/mL [facility] Magnesium [Mass/Vol] 1.8 mg/dL 1.6 - 2 .6 mg/dL [facility] MAGNESIUMon 05-14-2025 Magnesium [Mass/Vol] 1.8 mg/dL Normal 1.6-2.6 [facility] Comment on above: Result Comment: SUNG R COMMENTS:Higher values can be expected in females during menses. Performed By: #### L [id number], LAB15, [id number] ####[employer] Installer: NIEVES RUIZ ([id number])[facility])[address] [place] [address] Magnesium [Mass/Vol]on 05-14 Interpretation and review of laboratory results Normal [facility] No Panel Informationon 05-14 Interpretation and review of laboratory results Abnormal [facility] Interpretation and review of laboratory results Abnormal [facility] Interpretation and review of laboratory results Abnormal [facility] Interpretation and review of laboratory results Abnormal [facility] PROCALCITONIN TESTon 025 PROCALCITONIN 0.25 ng/mL High <0.07 [facility] Comment on above: Result Comment: ORDE R COMMENTS:PCT <0.50 = Low risk of severe sepsis and/or septic shock.PCT >2.00 = High risk of severe sepsis and/or septic shock. Performed By: #### L [id number], LAB15, [id number] ####[employer] Installer: NIEVES RUIZ ([id number])[facility] ([facility])[address] [place] [address] Procalcitonin [Mass/Vol]on Interpretation and review of laboratory results Abnormal [facility] Progress Noteon 05-14-2025 Progress Note Normal [facility] Progress Note Normal [facility] Progress Note Normal [facility] Bacteria identified Cx Nom ( U)Ordered By: Berta Dorman on 05-13-2025 Interpretation and review of laboratory results Normal [facility] C. DIFFICILE BY PCR WITH REF RONAN TO EIAon 05-13-2025 C. DIFFICILE BY PCR WITH REFLEX TO EIA C. DIFFICILE TOXIN PCR Reference Not Detected Not Detected ORDER COMMENTS: C. difficile infection is unlikely to be present. Methodology: Real-time PCR Normal [facility] Comment on above: Performed By: #### L [id number] ####[employer] Installer: NIEVES RUIZ ([id number])[facility])[address] [place] [address] C. difficile toxin genes JEANNIE +probe Ql (Stl)on 05-13-2025 C. difficile toxin B tcdB gene JEANNIE+probe Ql (Stl) Not detected Not Detected [facility] Interpretation and review of laboratory results Normal [facility] CBC W Auto Differential pane l (Bld)on 05-13-2025 Basophils (Bld) [#/Vol] 0.1 10*3/uL 0.0 - 0.2 10*3/uL [facility] Basophils/100 WBC (Bld) 0.6 % 0.0 - 2.0 % [facility] Eosinophils (Bld) [#/Vol] 0.2 10*3/uL 0. 0 - 0.5 10*3/uL [facility] Eosinophils/100 WBC (Bld) 1.9 % 0.0 - 6.0 % [facility] Erythrocyte distribution width (RBC) [Ratio] 13.3 % 11.5 - 15.0 % [facility] Hematocrit (Bld) [Volume fraction] 32.9 % Low 35.0 - 47.0 % [facility] Hemoglobin (Bld) [Mass/Vol] 10.4 g/dL Low 11.7 - 16.0 g/dL [facility] Immature granulocytes (Bld) [#/Vol] 0.1 10*3/uL High NINF - 0.1 10*3/uL [facility] Immature granulocytes/100 WBC (Bld) 0.7 % 0.0 - 2.0 % [facility] Interpretation and review of laboratory results Abnormal [facility] th Lymphocytes (Bld) [#/Vol] 0.8 10*3/uL Low 1. 0 - 4.3 10*3/uL [facility] Lymphocytes/100 WBC (Bld) 7.7 % Low 15 .0 - 45.0 % [facility] MCH (RBC) [Entitic mass] 29.8 pg 26. 0 - 34.0 pg [facility] MCHC (RBC) [Mass/Vol] 31.6 % 30.5 - 36.0 % [facility] MCV (RBC) [Entitic vol] 94.3 fL 77.0 - 99.0 fL [facility] Monocytes (Bld) [#/Vol] 0.6 10*3/uL 0.0 - 0.9 10*3/uL [facility] Monocytes/100 WBC (Bld) 5.3 % 5.0 - 13.0 % [facility] Neutrophils (Bld) [#/Vol] 8.7 10*3/uL High 1. 8 - 7.5 10*3/uL [facility] Neutrophils/100 WBC (Bld) 83.8 % High 38 .0 - 82.0 % [facility] Nucleated RBC/100 WBC (Bld) [Ratio] 0 % [facility] Platelet mean volume (Bld) [Entitic vol] 11 fL 9.0 - 12.7 fL [facility] Platelets (Bld) [#/Vol] 303 10*3/uL 140 - 440 10*3/uL [facility] RBC (Bld) [#/Vol] 3.49 10*6/uL Low 3.80 - 5.2 0 10*6/uL [facility] WBC (Bld) [#/Vol] 10.4 10*3/uL 3.6 - 10.7 10*3/uL [facility] CBC WITH AUTO DIFFERENTIALon 05-13-2025 Basophils (Bld) [#/Vol] 0.1 10*3/uL Normal 0.0-0.2 [facility] Comment on above: Performed By: #### L [id number] ####[employer] Installer: NIEVES RUIZ ([id number])[facility])[address] [place] [address] Basophils/100 WBC (Bld) 0.6 % Normal 0.0-2.0 [facility] Comment on above: Performed By: #### L [id number] ####[employer] Installer: NIEVES RUIZ ([id number])[facility])[address] [place] [address] Eosinophils (Bld) [#/Vol] 0.2 10*3/uL Normal 0.0-0.5 [facility] Comment on above: Performed By: #### L [id number] ####[employer] Installer: NIEVES RUIZ ([id number])[facility])[address] [place] [address] Eosinophils/100 WBC (Bld) 1.9 % Normal 0.0-6.0 [facility] Comment on above: Performed By: #### L [id number] ####[employer] Installer: NIEVES RUIZ ([id number])[facility])[address] [place] [address] Erythrocyte distribution width (RBC) [Ratio] 13.3 % Normal 11.5-15.0 [facility] Comment on above: Performed By: #### L [id number] ####[employer] Installer: NIEVES RUIZ ([id number])[facility])[address] [place] [address] Hematocrit (Bld) [Volume fraction] 32.9 % Low 35.0-47.0 [facility] Comment on above: Performed By: #### L [id number] ####[employer] Installer: NIEVES RUIZ ([id number])[facility])[address] [place] [address] Hemoglobin (Bld) [Mass/Vol] 10.4 g/dL Low 11.7-16.0 [facility] Comment on above: Performed By: #### L [id number] ####[employer] Installer: NIEVES RUIZ ([id number])[facility])[address] [place] [address] IMMATURE GRANS % 0.7 % Normal 0.0-2.0 [facility] Comment on above: Performed By: #### L [id number] ####[employer] Installer: NIEVES RUIZ ([id number])[facility])[address] [place] [address] IMMATURE GRANS ABSOLUTE 0.1 10*3/uL High <0.1 [facility] Comment on above: Performed By: #### L [id number] ####[employer] Installer: NIEVES RUIZ ([id number])[address] Lymphocytes (Bld) [#/Vol] 0.8 10*3/uL Low 1.0-4.3 [facility] Comment on above: Performed By: #### L [id number] ####[employer] Installer: NIEVES RUIZ ([id number])[address] Lymphocytes/100 WBC (Bld) 7.7 % Low 15.0-45.0 [facility] Comment on above: Performed By: #### L [id number] ####[employer] Installer: NIEVES RUIZ ([id number])[address] MCH (RBC) [Entitic mass] 29.8 pg Normal 26.0-34.0 [facility] Comment on above: Performed By: #### L [id number] ####[employer] Installer: NIEVES RUIZ ([id number])[address] MCHC 31.6 % Normal 30.5-36.0 [facility] Comment on above: Performed By: #### L [id number] ####[employer] Installer: NIEVES RUIZ ([id number])[facility] [place] [address] MCV (RBC) [Entitic vol] 94.3 fL Normal 77.0-99.0 [facility] Comment on above: Performed By: #### L [id number] ####[employer] Installer: NIEVES RUIZ ([id number])[facility] ([facility])[address] [place] [address] Monocytes (Bld) [#/Vol] 0.6 10*3/uL Normal 0.0-0.9 [facility] Comment on above: Performed By: #### L [id number] ####[employer] Installer: NIEVES RUIZ ([id number])[facility] ([facility])[address] [place] [address] Monocytes/100 WBC (Bld) 5.3 % Normal 5.0-13.0 [facility] Comment on above: Performed By: #### L [id number] ####[employer] Installer: NIEVES RUIZ ([id number])[facility] ([facility])[address] [place] [address] NEUTROPHILS ABSOLUTE 8.7 10*3/uL High 1.8-7.5 [facility] Comment on above: Performed By: #### L [id number] ####[employer] Installer: NIEVES RUIZ ([id number])[facility] ([facility])[address] [place] [address] Neutrophils/100 WBC (Bld) 83.8 % High 38.0-82.0 [facility] Comment on above: Performed By: #### L [id number] ####[employer] Installer: NIEVES RUIZ ([id number])[facility] ([facility])[address] [place] [address] NRBC 0.0 /100 WBCs Normal 0.0-2.0 [facility] Comment on above: Performed By: #### L [id number] ####[employer] Installer: NIEVES RUIZ ([id number])[facility] ([facility])[address] [place] [address] Platelet mean volume (Bld) [Entitic vol] 11.0 fL Normal 9.0-12.7 [facility] Comment on above: Performed By: #### L [id number] ####[employer] Installer: NIEVES RUIZ ([id number])[facility] ([facility])[address] [place] [address] Platelets (Bld) [#/Vol] 303 10*3/uL Normal 140-440 [facility] Comment on above: Performed By: #### L [id number] ####[employer] Installer: NIEVES RUIZ ([id number])[facility] ([facility])[address] [place] [address] RBC (Bld) [#/Vol] 3.49 10*6/uL Low 3.80-5.20 [facility] Comment on above: Performed By: #### L [id number] ####[employer] Installer: NIEVES RUIZ ([id number])[facility] ([facility])[address] [place] [address] WBC (Bld) [#/Vol] 10.4 10*3/uL Normal 3.6-10.7 [facility] Comment on above: Performed By: #### L [id number] ####[employer] Installer: NIEVES RUIZ ([id number])[facility] ([facility])[address] [place] [address] ECG 12-LEADon 05-13-2025 ECG 12-LEAD IMPRESSION: Sinus bradycardia Left ventricular hypertrophy Left anterior fascicular block Electronically Signed On 05-13-2025 17:55:20 EDT by Elva Gamboa Normal [facility] Laboratory - Chemistry and C hemistry - challengeon 05-13-2025 Glucose [Mass/Vol] 178 mg/dL High 70 - 100 mg/dL [facility] Glucose [Mass/Vol] 117 mg/dL High 70 - 100 mg/dL [facility] Glucose [Mass/Vol] 149 mg/dL High 70 - 100 mg/dL [facility] Glucose [Mass/Vol] 130 mg/dL High 70 - 100 mg/dL [facility] Laboratory - Microbiology an d Antimicrobial susceptibilityOrdered By: Berta Dorman on 05-13-2025 Bacteria identified Cx Nom (U) Multiple species present; probable contamination; repeat suggested [facility] Fwd: Power No Panel Informationon 05-13 Interpretation and review of laboratory results Abnormal [facility] CV EPIPHANY [facility] Interpretation and review of laboratory results Abnormal [facility] Interpretation and review of laboratory results Abnormal [facility] Interpretation and review of laboratory results Abnormal [facility] No Panel InformationOrdered By: Elva Gamboa on 05-13-2025 P [place] 0 degrees [facility] Work Phone: WI Interval 70 ms [facility] Fwd: Power Work Phone: QRS [place] -33 degrees [facility] Work Phone: QRSD Interval 110 ms [facility] Work Phone: QT Interval 460 ms [facility] Work Phone: QTC Interval 432 ms [facility] Fwd: Power Work Phone: T Wave [place] -67 degrees [facility] Work Phone: CORD:USE [facility] Work Phone: Progress Noteon 05-13-2025 Progress Note Normal [facility] h System [facility] Progress Note Normal [facility] Vital signsOrdered By: Elva Gamboa on 05-13-2025 Heart rate 53 /min bpm [facility] Work Phone: [phone] 05-12-2025 [id number] Normal [facility] Fwd: Power [facility] CBC W Auto Differential pane l (Bld)Ordered By: Toshia Rowland on 05-12-2025 Basophils (Bld) [#/Vol] 0 10*3/uL 0.0 - 0.2 10*3/uL [facility] Fwd: Power Basophils/100 WBC (Bld) 0.2 % 0.0 - 2.0 % [facility] Eosinophils (Bld) [#/Vol] 0 10*3/uL 0. 0 - 0.5 10*3/uL [facility] Eosinophils/100 WBC (Bld) 0.3 % 0.0 - 6.0 % [facility] Erythrocyte distribution width (RBC) [Ratio] 13 % 11.5 - 15.0 % [facility] Hematocrit (Bld) [Volume fraction] 33.1 % Low 35.0 - 47.0 % [facility] Hemoglobin (Bld) [Mass/Vol] 11.1 g/dL Low 11.7 - 16.0 g/dL [facility] Immature granulocytes (Bld) [#/Vol] 0.1 10*3/uL High NINF - 0.1 10*3/uL [facility] Immature granulocytes/100 WBC (Bld) 0.7 % 0.0 - 2.0 % [facility] Interpretation and review of laboratory results Abnormal [facility] th Lymphocytes (Bld) [#/Vol] 0.7 10*3/uL Low 1. 0 - 4.3 10*3/uL [facility] Lymphocytes/100 WBC (Bld) 5.8 % Low 15 .0 - 45.0 % [facility] MCH (RBC) [Entitic mass] 30.5 pg 26. 0 - 34.0 pg [facility] MCHC (RBC) [Mass/Vol] 33.5 % 30.5 - 36.0 % [facility] MCV (RBC) [Entitic vol] 90.9 fL 77.0 - 99.0 fL [facility] Monocytes (Bld) [#/Vol] 0.8 10*3/uL 0.0 - 0.9 10*3/uL [facility] Monocytes/100 WBC (Bld) 6.3 % 5.0 - 13.0 % [facility] Neutrophils (Bld) [#/Vol] 11 10*3/uL High 1. 8 - 7.5 10*3/uL [facility] Neutrophils/100 WBC (Bld) 86.7 % High 38 .0 - 82.0 % [facility] Nucleated RBC/100 WBC (Bld) [Ratio] 0 % [facility] Platelet mean volume (Bld) [Entitic vol] 11.3 fL 9.0 - 12.7 fL [facility] Platelets (Bld) [#/Vol] 325 10*3/uL 140 - 440 10*3/uL [facility] RBC (Bld) [#/Vol] 3.64 10*6/uL Low 3.80 - 5.2 0 10*6/uL [facility] WBC (Bld) [#/Vol] 12.7 10*3/uL High 3.6 - 10.7 10*3/uL [facility] Comprehensive metabolic 1998 panelon 05-12-2025 Albumin [Mass/Vol] 2.1 g/dL Low 3.4 - 4.8 g/dL [facility] ALP [Catalytic activity/Vol] 68 U/L 40 - 150 U/L [facility] ALT [Catalytic activity/Vol] U/L NINF - 30 U/L [facility] Anion gap [Moles/Vol] 9 mmol/L 3 - 13 mmol/L [facility] AST [Catalytic activity/Vol] 15 U/L NINF - 34 U/L [facility] Bilirubin [Mass/Vol] 1 mg/dL NINF - 1.2 mg/dL [facility] Calcium [Mass/Vol] 8.6 mg/dL Low 8.8 - 10. 0 mg/dL [facility] Chloride [Moles/Vol] 108 mmol/L High 98 - 10 7 mmol/L [facility] CO2 [Moles/Vol] 21 mmol/L Low 23 - 31 mmol/L [facility] Creatinine [Mass/Vol] 0.92 mg/dL 0.57 - 1.11 mg/dL [facility] GFR/1.73 sq M.predicted (S/P/Bld) [Vol rate/Area] 67.1 mL/min - PINF [facility] Glucose [Mass/Vol] 176 mg/dL High 82 - 115 mg/dL [facility] Interpretation and review of laboratory results Abnormal [facility] th Potassium [Moles/Vol] 3 mmol/L Low 3.5 - 5.1 mmol/L [facility] Protein [Mass/Vol] 6.5 g/dL 6.4 - 8.3 g/dL [facility] Sodium [Moles/Vol] 138 mmol/L 136 - 145 mmol/L [facility] Urea nitrogen [Mass/Vol] 20 mg/dL 9 - 23 mg/dL [facility] Consulton 05-12-2025 Consult Normal [facility] Consult Normal [facility] LACTIC ACID WITH REFLEXon Lactate [Moles/Vol] 1.1 mmol/L Normal 0.5-2.2 [facility] Comment on above: Performed By: #### L [id number] ####[employer] Installer: NIEVES RUIZ ([id number])[facility] ([facility])[address] [place] [address] Laboratory - Chemistry and C hemistry - challengeon 05-12-2025 Glucose [Mass/Vol] 207 mg/dL High 70 - 100 mg/dL [facility] Glucose [Mass/Vol] 243 mg/dL High 70 - 100 mg/dL [facility] Glucose [Mass/Vol] 133 mg/dL High 70 - 100 mg/dL [facility] Glucose [Mass/Vol] 146 mg/dL High 70 - 100 mg/dL [facility] Lactate [Moles/Vol] 1.1 mmol/L 0.5 - 2. 2 mmol/L [facility] Average glucose Estimated from glycated hemoglobin (Bld) [Mass/Vol] 163 mg/dL [facility] Procalcitonin [Mass/Vol] 0.49 ng/mL High ISAEL F - 0.07 ng/mL [facility] Magnesium [Mass/Vol] 2 mg/dL 1.6 - 2 .6 mg/dL [facility] Lactate [Moles/Vol] 2.1 mmol/L 0.5 - 2. 2 mmol/L [facility] Laboratory - Hematology and Cell countson 05-12-2025 HbA1c (Bld) [Mass fraction] 7.3 % [facility] Magnesium [Mass/Vol]on 05-12 Interpretation and review of laboratory results Normal [facility] No Panel Informationon 05-12 Interpretation and review of laboratory results Abnormal [facility] Interpretation and review of laboratory results Abnormal [facility] Interpretation and review of laboratory results Abnormal [facility] Interpretation and review of laboratory results Abnormal [facility] Interpretation and review of laboratory results Normal [facility] Interpretation and review of laboratory results Abnormal [facility] Interpretation and review of laboratory results Normal [facility] Nursing Noteon 05-12-2025 Nursing Note Normal [facility] Procalcitonin [Mass/Vol]on 1 Interpretation and review of laboratory results Abnormal [facility] Progress Noteon 05-12-2025 Progress Note Vancomycin therapy has been discontinued by Dr. Gil on 05/12/25. Thank you for the consult. Pharmacy signing off for vancomycin dosing. Emili Lara PharmD Date: 05/12/25 Time: 1:50 PM Normal [facility] Progress Note Normal [facility] BETA HYDROXYBUTYRATEon 05-11 BETA HYDROXYBUTYRATE 9.6 mg/dL High <=2.8 [facility] Comment on above: Performed By: #### L [id number], [id number], [id number], [id number], [id number] ####[employer] Installer: NIEVES RUIZ ([id number])[address] BLOOD CULTUREon 05-11-2025 Bacteria identified Cx Nom (Bld) Normal [facility] Comment on above: Performed By: #### L [id number] ####[employer] Installer: NIEVES RUIZ ([id number])[facility])[address] [place] [address] Bacteria identified Cx Nom (Bld) Normal [facility] Comment on above: Performed By: #### L [id number] ####[employer] Installer: NIEVES RUIZ ([id number])[address] BLOOD GAS, VENOUSon 05-11-20 AMOUNT OF OXYGEN Normal [facility] Comment on above: Result Comment: SUNG Bryan COMMENTS:Assessment of oxygenation is best done with an arterial blood gas determination. Reference ranges for pO2, bicarbonate, and base excess are for mixed venous blood. Specimens drawn from a peripheral vein will often have higher values. Performed By: #### L [id number] ####[employer] Installer: NIEVES RUIZ ([id number])[address] Base excess Calc (BldV) [Moles/Vol] -0.9000 mmol/L Normal -3.0-3.0 [facility] Comment on above: Performed By: #### L [id number] ####[employer] Installer: NIEVES [id number])[facility] [place] [address] [place] CO2 [Moles/Vol] 23.0 mmol/L Low 24.0-28.0 [facility] Comment on above: Performed By: #### L [id number] ####[employer] Installer: NIEVES RUIZ ([id number])[facility] ([facility])[address] [place] [address] HCO3 (Bld) [Moles/Vol] 22.0 mmol/L Low 23.0-27.0 S [facility] Comment on above: Performed By: #### L [id number] ####[employer] Installer: NIEVES RUIZ ([id number])[facility])[address] [place] [address] Hemoglobin (Bld) [Mass/Vol] 11.5 g/dL Normal Screen only [facility] Comment on above: Performed By: #### L [id number] ####[employer] Installer: NIEVES RUIZ ([id number])[facility] ([facility])[address] [place] [address] OXYGEN (MM HG) IN VENOUS BLOOD 47.3 mm Hg Normal [facility] Comment on above: Performed By: #### L [id number] ####[employer] Installer: NIEVES RUIZ ([id number])[facility])[address] [place] [address] OXYGEN SATURATION (%) IN VENOUS BLOOD 83.1 % Normal [facility] Comment on above: Performed By: #### L [id number] ####[employer] Installer: NIEVES RUIZ ([id number])[facility])[address] [place] [address] [place] PCO2, WAQAR 31.0 mm Hg Low 40.0-55.0 [facility] Comment on above: Performed By: #### L [id number] ####[employer] Installer: NIEVES RUIZ ([id number])[facility] ([facility])[address] [place] [address] [place] PH VENOUS 7.469 High 7.330-7.430 [facility] Comment on above: Performed By: #### L [id number] ####[employer] Installer: NIEVES RUIZ ([id number])[facility] ([facility])[address] [place] [address] SOURCE OF OXYGEN None (Room Air) [facility] Comment on above: Performed By: #### L [id number] ####[employer] Installer: NIEVES RUIZ ([id number])[facility] ([facility])[address] [place] [address] CBC W Auto Differential pane l (Bld)Ordered By: Sharon Bustos on 05-11-2025 Basophils (Bld) [#/Vol] 0 10*3/uL 0.0 - 0.2 10*3/uL [facility] Basophils/100 WBC (Bld) 0.2 % 0.0 - 2.0 % [facility] Eosinophils (Bld) [#/Vol] 0 10*3/uL 0. 0 - 0.5 10*3/uL [facility] Eosinophils/100 WBC (Bld) 0 % 0.0 - 6.0 % [facility] Erythrocyte distribution width (RBC) [Ratio] 13.2 % 11.5 - 15.0 % [facility] Hematocrit (Bld) [Volume fraction] 35.2 % 35.0 - 47.0 % [facility] Hemoglobin (Bld) [Mass/Vol] 11.6 g/dL Low 11.7 - 16.0 g/dL [facility] Immature granulocytes (Bld) [#/Vol] 0.1 10*3/uL High NINF - 0.1 10*3/uL [facility] Immature granulocytes/100 WBC (Bld) 0.5 % 0.0 - 2.0 % [facility] Interpretation and review of laboratory results Abnormal [facility] Lymphocytes (Bld) [#/Vol] 0.4 10*3/uL Low 1. 0 - 4.3 10*3/uL [facility] Lymphocytes/100 WBC (Bld) 2.2 % Low 15 .0 - 45.0 % [facility] MCH (RBC) [Entitic mass] 30 pg 26. 0 - 34.0 pg [facility] MCHC (RBC) [Mass/Vol] 33 % 30.5 - 36.0 % [facility] MCV (RBC) [Entitic vol] 91 fL 77.0 - 99.0 fL [facility] Monocytes (Bld) [#/Vol] 0.7 10*3/uL 0.0 - 0.9 10*3/uL [facility] Monocytes/100 WBC (Bld) 4.4 % Low 5.0 - 13.0 % [facility] Neutrophils (Bld) [#/Vol] 15.7 10*3/uL High 1. 8 - 7.5 10*3/uL [facility] Neutrophils/100 WBC (Bld) 92.7 % High 38 .0 - 82.0 % [facility] Nucleated RBC/100 WBC (Bld) [Ratio] 0 % [facility] Platelet mean volume (Bld) [Entitic vol] 10.8 fL 9.0 - 12.7 fL [facility] Platelets (Bld) [#/Vol] 336 10*3/uL 140 - 440 10*3/uL [facility] RBC (Bld) [#/Vol] 3.87 10*6/uL 3.80 - 5.2 0 10*6/uL [facility] WBC (Bld) [#/Vol] 16.9 10*3/uL High 3.6 - 10.7 10*3/uL [facility] CBC WITH AUTO DIFFERENTIALon 05-11-2025 Basophils (Bld) [#/Vol] 0.0 10*3/uL Normal 0.0-0.2 [facility] Comment on above: Performed By: #### L [id number] ####[employer] Installer: NIEVES [id number])[facility] ([facility])[address] [place] [address] Basophils/100 WBC (Bld) 0.2 % Normal 0.0-2.0 S [facility] Comment on above: Performed By: #### L [id number] ####[employer] Installer: NIEVES [id number])[facility] ([facility])[address] [place] [address] Eosinophils (Bld) [#/Vol] 0.0 10*3/uL Normal 0.0-0.5 [facility] Comment on above: Performed By: #### L [id number] ####[employer] Installer: NIEVES [id number])[facility])[address] [place] [address] Eosinophils/100 WBC (Bld) 0.3 % Normal 0.0-6.0 [facility] Comment on above: Performed By: #### L [id number] ####[employer] Installer: NIEVES RUIZ ([id number])[facility])[address] [place] [address] Erythrocyte distribution width (RBC) [Ratio] 13.0 % Normal 11.5-15.0 [facility] Comment on above: Performed By: #### L [id number] ####[employer] Installer: NIEVES RUIZ ([id number])[facility])[address] [place] [address] Hematocrit (Bld) [Volume fraction] 33.1 % Low 35.0-47.0 [facility] Comment on above: Performed By: #### L [id number] ####[employer] Installer: NIEVES RUIZ ([id number])[facility])[address] [place] [address] Hemoglobin (Bld) [Mass/Vol] 11.1 g/dL Low 11.7-16.0 [facility] Comment on above: Performed By: #### L [id number] ####[employer] Installer: NIEVES RUIZ ([id number])[facility])[address] [place] [address] IMMATURE GRANS % 0.7 % Normal 0.0-2.[address] [facility] Comment on above: Performed By: #### L [id number] ####[employer] Installer: NIEVES RUIZ ([id number])[facility])[address] [place] [address] IMMATURE GRANS ABSOLUTE 0.1 10*3/uL High <0.1 [facility] Comment on above: Performed By: #### L [id number] ####[employer] Installer: NIEVES RUIZ ([id number])[facility])[address] [place] [address] Lymphocytes (Bld) [#/Vol] 0.7 10*3/uL Low 1.0-4.3 [facility] Comment on above: Performed By: #### L [id number] ####[employer] Installer: NIEVES RUIZ ([id number])[facility])[address] [place] [address] Lymphocytes/100 WBC (Bld) 5.8 % Low 15.0-45.0 [facility] Comment on above: Performed By: #### L [id number] ####[employer] Installer: NIEVES RUIZ ([id number])[facility])[address] [place] [address] MCH (RBC) [Entitic mass] 30.5 pg Normal 26.0-34.0 [facility] Comment on above: Performed By: #### L [id number] ####[employer] Installer: NIEVES RUIZ ([id number])[facility])[address] [place] [address] MCHC 33.5 % Normal 30.5-36.0 [facility] Comment on above: Performed By: #### L [id number] ####[employer] Installer: NIEVES RUIZ ([id number])[facility])[address] [place] [address] MCV (RBC) [Entitic vol] 90.9 fL Normal 77.0-99.0 [facility] Comment on above: Performed By: #### L [id number] ####[employer] Installer: NIEVES RUIZ ([id number])[facility])[address] [place] [address] Monocytes (Bld) [#/Vol] 0.8 10*3/uL Normal 0.0-0.9 [facility] Comment on above: Performed By: #### L [id number] ####[employer] Installer: NIEVES RUIZ ([id number])[facility])[address] [place] [address] Monocytes/100 WBC (Bld) 6.3 % Normal 5.0-13.0 [facility] Comment on above: Performed By: #### L [id number] ####[employer] Installer: NIEVES RUIZ ([id number])[facility] ([facility])[address] [place] [address] NEUTROPHILS ABSOLUTE 11.0 10*3/uL High 1.8-7.5 [facility] Comment on above: Performed By: #### L [id number] ####[employer] Installer: NIEVES RUIZ ([id number])[facility])[address] [place] [address] Neutrophils/100 WBC (Bld) 86.7 % High 38.0-82.0 [facility] Comment on above: Performed By: #### L [id number] ####[employer] Installer: NIEVES RUIZ ([id number])[facility])[address] [place] [address] NRBC 0.0 /100 WBCs Normal 0.0-2.0 [facility] Comment on above: Performed By: #### L [id number] ####[employer] Installer: NIEVES RUIZ ([id number])[facility] ([facility])[address] [place] [address] Platelet mean volume (Bld) [Entitic vol] 11.3 fL Normal 9.0-12.7 [facility] Comment on above: Performed By: #### L [id number] ####[employer] Installer: NIEVES RUIZ ([id number])[facility])[address] [place] [address] [place] Platelets (Bld) [#/Vol] 325 10*3/uL Normal 140-440 [facility] Comment on above: Performed By: #### L [id number] ####[employer] Installer: NIEVES RUIZ ([id number])[facility])[address] [place] [address] RBC (Bld) [#/Vol] 3.64 10*6/uL Low 3.80-5.20 [facility] Comment on above: Performed By: #### L [id number] ####[employer] Installer: NIEVES RUIZ ([id number])[facility])[address] [place] [address] WBC (Bld) [#/Vol] 12.7 10*3/uL High 3.6-10.7 [facility] Comment on above: Performed By: #### L [id number] ####[employer] Installer: NIEVES RUIZ ([id number])[facility])[address] [place] [address] Basophils (Bld) [#/Vol] 0.0 10*3/uL Normal 0.0-0.2 [facility] Comment on above: Performed By: #### L [id number] ####[employer] Installer: NIEVES RUIZ ([id number])[facility])[address] [place] [address] Basophils/100 WBC (Bld) 0.2 % Normal 0.0-2.0 [facility] Comment on above: Performed By: #### L [id number] ####[employer] Installer: NIEVES RUIZ ([id number])[facility] ([facility])[address] [place] [address] Eosinophils (Bld) [#/Vol] 0.0 10*3/uL Normal 0.0-0.5 [facility] Comment on above: Performed By: #### L [id number] ####[employer] Installer: NIEVES RUIZ ([id number])[facility])[address] [place] [address] Eosinophils/100 WBC (Bld) 0.0 % Normal 0.0-6.0 [facility] Comment on above: Performed By: #### L [id number] ####[employer] Installer: NIEVES RUIZ ([id number])[facility])[address] [place] [address] Erythrocyte distribution width (RBC) [Ratio] 13.2 % Normal 11.5-15.0 [facility] Comment on above: Performed By: #### L [id number] ####[employer] Installer: NIEVES RUIZ ([id number])[facility] [address] Hematocrit (Bld) [Volume fraction] 35.2 % Normal 35.0-47.0 [facility] Comment on above: Performed By: #### L [id number] ####[employer] Installer: NIEVES RUIZ ([id number])[facility])[address] [place] [address] Hemoglobin (Bld) [Mass/Vol] 11.6 g/dL Low 11.7-16.0 [facility] Comment on above: Performed By: #### L [id number] ####[employer] Installer: NIEVES RUIZ ([id number])[facility] [place])[address] [place] [address] IMMATURE GRANS % 0.5 % Normal 0.0-2.[address] [facility] Comment on above: Performed By: #### L [id number] ####[employer] Installer: NIEVES RUIZ ([id number])[facility] [place])[address] [place] [address] IMMATURE GRANS ABSOLUTE 0.1 10*3/uL High <0.1 [facility] Comment on above: Performed By: #### L [id number] ####[employer] Installer: NIEVES RUIZ ([id number])[facility] [place])[address] [place] [address] Lymphocytes (Bld) [#/Vol] 0.4 10*3/uL Low 1.0-4.3 [facility] Comment on above: Performed By: #### L [id number] ####[employer] Installer: NIEVES RUIZ ([id number])[facility] [place])[address] [place] [address] Lymphocytes/100 WBC (Bld) 2.2 % Low 15.0-45.0 [facility] Comment on above: Performed By: #### L [id number] ####[employer] Installer: NIEVES RUIZ ([id number])[facility] [place])[address] [place] [address] MCH (RBC) [Entitic mass] 30.0 pg Normal 26.0-34.0 [facility] Comment on above: Performed By: #### L [id number] ####[employer] Installer: NIEVES RUIZ ([id number])[facility] [place])[address] [place] [address] MCHC 33.0 % Normal 30.5-36.0 [facility] Comment on above: Performed By: #### L [id number] ####[employer] Installer: NIEVES RUIZ ([id number])[facility] [place])[address] [place] [address] MCV (RBC) [Entitic vol] 91.0 fL Normal 77.0-99.0 [facility] Comment on above: Performed By: #### L [id number] ####[employer] Installer: NIEVES RUIZ ([phone])[facility] [place])[address] [place] [address] Monocytes (Bld) [#/Vol] 0.7 10*3/uL Normal 0.0-0.9 [facility] Comment on above: Performed By: #### L [id number] ####[employer] Installer: NIEVES RUIZ ([id number])[facility] [place])[address] [place] [address] Monocytes/100 WBC (Bld) 4.4 % Low 5.0-13.0 [facility] Comment on above: Performed By: #### L [id number] ####[employer] Installer: NIEVES RUIZ ([id number])[facility] [place])[address] [place] [address] NEUTROPHILS ABSOLUTE 15.7 10*3/uL High 1.8-7.5 [facility] Comment on above: Performed By: #### L [id number] ####[employer] Installer: NIEVES RUIZ ([id number])[facility] [place])[address] [place] [address] Neutrophils/100 WBC (Bld) 92.7 % High 38.0-82.0 [facility] Comment on above: Performed By: #### L [id number] ####[employer] Installer: NIEVES [id number])[facility] ([facility])[address] [place] [address] NRBC 0.0 /100 WBCs Normal 0.0-2.0 [facility] Comment on above: Performed By: #### L [id number] ####[employer] Installer: NIEVES RUIZ ([id number])[facility] ([facility])[address] [place] [address] Platelet mean volume (Bld) [Entitic vol] 10.8 fL Normal 9.0-12.7 [facility] Comment on above: Performed By: #### L [id number] ####[employer] Installer: NIEVES RUIZ ([id number])[facility] ([facility])[address] [place] [address] Platelets (Bld) [#/Vol] 336 10*3/uL Normal 140-440 [facility] Comment on above: Performed By: #### L [id number] ####[employer] Installer: NIEVES RUIZ ([id number])[facility] ([facility])[address] [place] [address] RBC (Bld) [#/Vol] 3.87 10*6/uL Normal 3.80-5.20 [facility] Comment on above: Performed By: #### L [id number] ####[employer] Installer: NIEVES RUIZ ([id number])[facility])[address] [place] [address] WBC (Bld) [#/Vol] 16.9 10*3/uL High 3.6-10.7 [facility] Comment on above: Performed By: #### L [id number] ####[employer] Installer: NIEVES RUIZ ([id number])[facility] [place])[address] [place] [address] CKon 05-11-2025 CK [Catalytic activity/Vol] 47 U/L Normal 30-185 [facility] Comment on above: Performed By: #### L [id number], LAB62, [id number], [id number], LAB17 ####[employer] Installer: NIEVES RUIZ ([id number])[facility] ([facility])[address] [place] [address] CK [Catalytic activity/Vol]o n 05-11-2025 Interpretation and review of laboratory results Normal [facility] COMPLETE URINALYSIS WITH REF RONAN TO CULTUREon 05-11-2025 BACTERIA (#/HPF) IN URINE Many Abnormal Negative [facility] Comment on above: Performed By: #### L [id number] ####[employer] Installer: NIEVES RUIZ ([id number])[facility] ([facility])[address] [place] [address] BILIRUBIN, TOTAL PRESENCE IN URINE Negative Normal Negative [facility] Comment on above: Performed By: #### L [id number] ####[employer] Installer: NIEVES RUIZ ([id number])[facility] ([facility])[address] [place] [address] Clarity (U) Extra Turbid Abnormal Clear [facility] Comment on above: Performed By: #### L [id number] ####[employer] Installer: NIEVES RUIZ ([id number])[facility] ([facility])[address] [place] [address] Color (U) Yellow Normal Lt. Yellow [facility] Comment on above: Performed By: #### L [id number] ####[employer] Installer: NIEVES RUIZ ([id number])[facility] ([facility])[address] [place] [address] Glucose (U) [Mass/Vol] 500 mg/dL Abnormal Nallely l (<70) [facility] Comment on above: Performed By: #### L [id number] ####[employer] Installer: NIEVES RUIZ ([id number])[facility] ([facility])[address] [place] [address] HEMOGLOBIN PRESENCE IN URINE Negative Normal Negative [facility] Comment on above: Performed By: #### L [id number] ####[employer] Installer: NIEVES RUIZ ([id number])[facility] ([facility])[address] [place] [address] [place] HYALINE CASTS (#/LPF) IN URINE SEDIMENT BY MICROSCOPY Negative Normal Negative [facility] Comment on above: Performed By: #### L [id number] ####[employer] Installer: NIEVES RUIZ ([id number])[facility] [place])[address] [place] [address] Ketones Ql (U) 10 mg/dL Abnormal Negative [facility] Comment on above: Performed By: #### L [id number] ####[employer] Installer: NIEVES RUIZ ([id number])[facility] ([facility])[address] [place] [address] LEUKOCYTE ESTERASE PRESENCE IN URINE BY TEST STRIP 500 Rad/uL Abnormal Negative [facility] Comment on above: Performed By: #### L [id number] ####[employer] Installer: NIEVES RUIZ ([id number])[facility] ([facility])[address] [place] [address] [place] MUCUS (#/LPF) IN URINE SEDIMENT Few Normal Negative [facility] Comment on above: Performed By: #### L [id number] ####[employer] Installer: NIEVES RUIZ ([id number])[facility] ([facility])[address] [place] [address] NITRITE PRESENCE IN URINE Negative Normal Negative [facility] Comment on above: Performed By: #### L [id number] ####[employer] Installer: NIEVES RUIZ ([id number])[facility] ([facility])[address] [place] [address] pH (U) 8.0 [pH] Normal 5.0-8.0 [facility] Comment on above: Performed By: #### L [id number] ####[employer] Installer: NIEVES RUIZ ([id number])[facility] ([facility])[address] [place] [address] [place] Protein (U) [Mass/Vol] 300 mg/dL Abnormal Negative [facility] Comment on above: Performed By: #### L [id number] ####[employer] Installer: NIEVES RUIZ ([id number])[facility] [place])[address] RBC (#/HPF) IN URINE SEDIMENT 26-50 Abnormal 0-2 [facility] Comment on above: Performed By: #### L [id number] ####[employer] Installer: NIEVES RUIZ ([id number])[facility])[address] [place] [address] Specific gravity (U) [Rel density] 1.020 Normal 1.005-1.030 [facility] Comment on above: Result Comment: SUNG Bryan COMMENTS:This specimen has been reflexed to urine culture. Performed By: #### L [id number] ####[employer] Installer: NIEVES RUIZ ([id number])[facility] [place])[address] [place] [address] SQUAMOUS EPITHELIAL CELLS (#/HPF) IN URINE SEDIMENT 0-2 Normal 3-5 [facility] Comment on above: Performed By: #### L [id number] ####[employer] Installer: NIEVES RUIZ ([id number])[facility] [place])[address] [place] [address] UROBILINOGEN (MG/DL) IN URINE 3 mg/dL Abnormal Normal (0-1) [facility] Comment on above: Performed By: #### L [id number] ####[employer] Installer: NIEVES RUIZ ([id number])[facility] [place])[address] [place] [address] WBC (LEUKOCYTE) (#/HPF) IN URINE SEDIMENT >100 Abnormal 0-5 [facility] Comment on above: Performed By: #### L [id number] ####[employer] Installer: NIEVES RUIZ ([id number])[facility] [place])[address] [place] [address] COMPREHENSIVE METABOLIC PANE Derek 05-11-2025 Albumin [Mass/Vol] 2.1 g/dL Low 3.4-4.8 [facility] Comment on above: Performed By: #### L [id number], LAB17, [id number] ####[employer] Installer: NIEVES RUIZ ([id number])[facility])[address] [place] [address] ALP [Catalytic activity/Vol] 68 U/L Normal 40-150 [facility] Comment on above: Performed By: #### Wayne CAICEDO, LAB17, [id number] ####[employer] Installer: NIEVES RUIZ ([id number])[facility])[address] [place] [address] ALT [Catalytic activity/Vol] U/L Normal <30 [facility] Comment on above: Performed By: #### Wayne CAICEDO, LAB17, [id number] ####[employer] Installer: NIEVES RUIZ ([id number])[facility] ([facility])[address] [place] [address] Anion gap [Moles/Vol] 9 mmol/L Normal 3-13 [facility] Comment on above: Performed By: #### Wayne CAICEDO, LAB17, [id number] ####[employer] Installer: NIEVES RUIZ ([id number])[facility] ([facility])[address] [place] [address] AST [Catalytic activity/Vol] 15 U/L Normal <34 [facility] Comment on above: Performed By: #### Wayne CAICEDO, LAB17, [id number] ####[employer] Installer: NIEVES RUIZ ([id number])[facility])[address] [place] [address] Bilirubin [Mass/Vol] 1.0 mg/dL Normal <1.2 [facility] Comment on above: Performed By: #### Wayne CAICEDO, LAB17, [id number] ####[employer] Installer: NIEVES RUIZ ([id number])[facility] [place] [address] Calcium [Mass/Vol] 8.6 mg/dL Low 8.8-10.0 [facility] Comment on above: Performed By: #### Wayne HERNANDEZ21, LAB17, [id number] ####[employer] Installer: NIEVES RUIZ ([id number])[facility] ([facility])[address] [place] [address] Chloride [Moles/Vol] 108 mmol/L High 98-107 [facility] Comment on above: Performed By: #### L [id number], LAB17, [id number] ####[employer] Installer: NIEVES RUIZ ([id number])[facility])[address] [place] [address] CO2 [Moles/Vol] 21 mmol/L Low 23-31 [facility] Comment on above: Performed By: #### L [id number], LAB17, SCC320 ####[employer] Installer: NIEVES RUIZ ([id number])[facility] [place])[address] [place] [address] Creatinine [Mass/Vol] 0.92 mg/dL Normal 0.57-1.11 [facility] Comment on above: Performed By: #### Wayne HERNANDEZ21, LAB17, [id number] ####[employer] Installer: NIEVES RUIZ ([id number])[facility] [place])[address] [place] [address] GLOMERULAR FILTRATION RATE ML/MIN/1.73 SQ M.PREDICTED 67.1 mL/min/1.73m*2 Normal >60.0 [facility] Comment on above: Result Comment: Calc ulation based on the Chronic Kidney Disease Epidemiology Collaboration (CKD-EPI) equation refit without adjustment for race Performed By: #### L [id number], LAB17, [id number] ####[employer] Installer: NIEVES RUIZ ([id number])[facility])[address] [place] [address] Glucose [Mass/Vol] 176 mg/dL High 82-115 [facility] Comment on above: Performed By: #### L [id number], LAB17, [id number] ####[employer] Installer: NIEVES RUIZ ([id number])[facility] [place])[address] [place] [address] Potassium [Moles/Vol] 3.0 mmol/L Low 3.5-5.1 [facility] Comment on above: Result Comment: [facility] potassium values may be up to 0.5 mmol/L lower than serum values. Performed By: #### L [id number], LAB17, NPH215 ####[employer] Installer: NIEVES RUIZ ([id number])[facility] ([facility])[address] [place] [address] Protein [Mass/Vol] 6.5 g/dL Normal 6.4-8.3 [facility] Comment on above: Performed By: #### L [id number], LAB17, [id number] ####[employer] Installer: NIEVES RUIZ ([id number])[facility])[address] [place] [address] Sodium [Moles/Vol] 138 mmol/L Normal 136-145 [facility] Comment on above: Performed By: #### L [id number], LAB17, [id number] ####[employer] Installer: NIEVES RUIZ ([id number])[facility] [place])[address] [place] [address] Urea nitrogen [Mass/Vol] 20 mg/dL Normal 9-23 [facility] Comment on above: Performed By: #### L [id number], LAB17, YDW931 ####[employer] Installer: NIEVES RUIZ ([id number])[facility])[address] [place] [address] Albumin [Mass/Vol] 2.2 g/dL Low 3.4-4.8 [facility] Comment on above: Performed By: #### L [id number], LAB62, EDS079, HOC300, LAB17 ####[employer] Installer: NIEVES RUIZ ([id number])[facility] ([facility])[address] [place] [address] ALP [Catalytic activity/Vol] 77 U/L Normal 40-150 [facility] Comment on above: Performed By: #### L [id number], LAB62, PUJ039, GYI409, LAB17 ####[employer] Installer: NIEVES RUIZ ([id number])[facility])[address] [place] [address] ALT [Catalytic activity/Vol] U/L Normal <30 [facility] Comment on above: Performed By: #### L [id number], LAB62, ASA732, KGO836, LAB17 ####[employer] Installer: NIEVES RUIZ ([id number])[facility] ([facility])[address] [place] [address] Anion gap [Moles/Vol] 14 mmol/L High 3-13 [facility] Comment on above: Performed By: #### L [id number], LAB62, XFW126, JAE384, LAB17 ####[employer] Installer: NIEVES RUIZ ([id number])[facility])[address] [place] [address] AST [Catalytic activity/Vol] 16 U/L Normal <34 [facility] Comment on above: Performed By: #### L [id number], LAB62, ODS241, EUD656, LAB17 ####[employer] Installer: NIEVES RUIZ ([id number])[facility])[address] [place] [address] Bilirubin [Mass/Vol] 1.3 mg/dL High <1.2 [facility] Comment on above: Performed By: #### L [id number], LAB62, WPY281, WTI538, LAB17 ####[employer] Installer: NIEVES RUIZ ([id number])[facility])[address] [place] [address] Calcium [Mass/Vol] 8.5 mg/dL Low 8.8-10.0 [facility] Comment on above: Performed By: #### L [id number], LAB62, DMP310, UQR368, LAB17 ####[employer] Installer: NIEVES RUIZ ([id number])[facility] ([facility])[address] [place] [address] [place] Chloride [Moles/Vol] 103 mmol/L Normal 98-107 [facility] Comment on above: Performed By: #### L [id number], LAB62, NJP299, VNN073, LAB17 ####[employer] Installer: NIEVES RUIZ ([id number])[facility] ([facility])[address] [place] [address] [place] CO2 [Moles/Vol] 18 mmol/L Low 23-31 [facility] Comment on above: Performed By: #### L [id number], LAB62, LHX529, QZN236, LAB17 ####[employer] Installer: NIEVES RUIZ ([id number])[facility])[address] [place] [address] Creatinine [Mass/Vol] 1.16 mg/dL High 0.57-1.11 [facility] Comment on above: Performed By: #### L [id number], LAB62, UHW582, EHI350, LAB17 ####[employer] Installer: NIEVES RUIZ ([id number])[facility])[address] [place] [address] GLOMERULAR FILTRATION RATE ML/MIN/1.73 SQ M.PREDICTED 50.8 mL/min/1.73m*2 Low >60.0 [facility] Comment on above: Result Comment: Calc ulation based on the Chronic Kidney Disease Epidemiology Collaboration (CKD-EPI) equation refit without adjustment for race Performed By: #### L [id number], LAB62, PWL958, ZNL966, LAB17 ####[employer] Installer: NIEVES RUIZ ([id number])[facility])[address] [place] [address] Glucose [Mass/Vol] 399 mg/dL High 82-115 [facility] Comment on above: Performed By: #### L [id number], LAB62, OET066, QSC717, LAB17 ####[employer] Installer: NIEVES RUIZ ([id number])[facility])[address] [place] [address] Potassium [Moles/Vol] 3.4 mmol/L Low 3.5-5.1 [facility] Comment on above: Result Comment: [facility] potassium values may be up to 0.5 mmol/L lower than serum values. Performed By: #### L [id number], LAB62, GSY196, IOH155, LAB17 ####[employer] Installer: NIEVES RUIZ ([id number])[facility])[address] [place] [address] Protein [Mass/Vol] 6.8 g/dL Normal 6.4-8.3 [facility] Comment on above: Performed By: #### L [id number], LAB62, WZF882, ONA133, LAB17 ####[employer] Installer: NIEVES RUIZ ([id number])[facility] ([facility])[address] [place] [address] Sodium [Moles/Vol] 135 mmol/L Low 136-145 [facility] Comment on above: Performed By: #### L [id number], LAB62, FRR258, BMF785, LAB17 ####[employer] Installer: NIEVES RUIZ ([id number])[facility] ([facility])[address] [place] [address] Urea nitrogen [Mass/Vol] 21 mg/dL Normal 9-23 [facility] Comment on above: Performed By: #### L [id number], LAB62, FTK118, MRN804, LAB17 ####[employer] Installer: NIEVES RUIZ ([id number])[facility] ([facility])[address] [place] [address] Comprehensive metabolic 1998 panelon 05-11-2025 Albumin [Mass/Vol] 2.2 g/dL Low 3.4 - 4.8 g/dL [facility] ALP [Catalytic activity/Vol] 77 U/L 40 - 150 U/L [facility] ALT [Catalytic activity/Vol] U/L NINF - 30 U/L [facility] Anion gap [Moles/Vol] 14 mmol/L High 3 - 13 mmol/L [facility] AST [Catalytic activity/Vol] 16 U/L NINF - 34 U/L [facility] Bilirubin [Mass/Vol] 1.3 mg/dL High NINF - 1.2 mg/dL [facility] Calcium [Mass/Vol] 8.5 mg/dL Low 8.8 - 10. 0 mg/dL [facility] Chloride [Moles/Vol] 103 mmol/L 98 - 10 7 mmol/L [facility] CO2 [Moles/Vol] 18 mmol/L Low 23 - 31 mmol/L [facility] Creatinine [Mass/Vol] 1.16 mg/dL High 0.57 - 1.11 mg/dL [facility] GFR/1.73 sq M.predicted (S/P/Bld) [Vol rate/Area] 50.8 mL/min Low - PINF [facility] Glucose [Mass/Vol] 399 mg/dL High 82 - 115 mg/dL [facility] Interpretation and review of laboratory results Abnormal [facility] Potassium [Moles/Vol] 3.4 mmol/L Low 3.5 - 5.1 mmol/L [facility] Protein [Mass/Vol] 6.8 g/dL 6.4 - 8.3 g/dL [facility] Sodium [Moles/Vol] 135 mmol/L Low 136 - 145 mmol/L [facility] Urea nitrogen [Mass/Vol] 21 mg/dL 9 - 23 mg/dL [facility] ED Provider Noteon ED Provider Note Normal [facility] HEMOGLOBIN A1Con 05-11-2025 Glucose [Mass/Vol] 163 mg/dL Normal [facility] Comment on above: Result Comment: SUNG Bryan COMMENTS:If not done within the last 3 [id number] values of 5.7-6.4 percent indicate an increased risk for developing diabetes mellitus. HbA1c values greater than or equal to 6.5 percent are diagnostic of diabetes mellitus. For diagnosis of diabetes in individuals without unequivocal hyperglycemia, results should be confirmed by repeat testing. Performed By: #### L AB90 ####[employer] Installer: NIEVES RUIZ ([id number])[address] HEMOGLOBIN A1C 7.3 %HbA1C High <5.7 [facility] Comment on above: Result Comment: Norm al less than 5.7%Prediabetes 5.7% to 6.4%Diabetes 6.5% or higher--HgbA1C levels may not be accurate in patients who have renal disease, received recent blood transfusions, are anemic, or who have dyshemoglobinemia. Performed By: #### L [id number] ####[employer] Installer: NIEVES RUIZ ([id number])[facility] [place])[address] [place] [address] LACTIC ACID WITH REFLEXon Lactate [Moles/Vol] 2.1 mmol/L Normal 0.5-2.2 [facility] Comment on above: Performed By: #### L [id number] ####[employer] Installer: NIEVES RUIZ ([id number])[facility] ([facility])[address] [place] [address] Lactate [Moles/Vol] 3.1 mmol/L High 0.5-2.2 [facility] Comment on above: Performed By: #### L [id number] ####[employer] Installer: NIEVES RUIZ ([id number])[facility] ([facility])[address] [place] [address] Laboratory - Chemistry and C hemistry - challengeon 05-11-2025 Glucose [Mass/Vol] 176 mg/dL High 70 - 100 mg/dL [facility] CK [Catalytic activity/Vol] 47 U/L 30 - 185 U/L [facility] Glucose [Mass/Vol] 273 mg/dL High 70 - 100 mg/dL [facility] Magnesium [Mass/Vol] 1.4 mg/dL Low 1.6 - 2 .6 mg/dL [facility] Beta hydroxybutyrate [Mass/Vol] 9.6 mg/dL High NINF - 2.8 mg/dL [facility] Lactate [Moles/Vol] 3.1 mmol/L High 0.5 - 2. 2 mmol/L [facility] Laboratory - Chemistry and C hemistry - challengeOrdered By: Ebony Thompson on 05-11-2025 Base excess Calc (BldV) [Moles/Vol] -0.9000 mmol/L -3.0 - 3.0 mmol/L [facility] CO2 (BldV) [Partial pressure] 31 mm[Hg] Low [facility] CO2 [Moles/Vol] 23 mmol/L Low 24.0 - 28.0 mmol/L [facility] HCO3 (Bld) [Moles/Vol] 22 mmol/L Low 23.0 - 27.0 mmol/L [facility] Oxygen (BldV) [Partial pressure] 47.3 mm[Hg] mm Hg [facility] pH (BldV) 7.469 [pH] High 7.330 - 7.430 [facility] Laboratory - Hematology and Cell countsOrdered By: Ebony Thompson on 05-11-2025 Hemoglobin (Bld) [Mass/Vol] 11.5 g/dL 7.0 g/dl [facility] MAGNESIUMon 05-11-2025 Magnesium [Mass/Vol] 2.0 mg/dL Normal 1.6-2.6 [facility] Comment on above: Result Comment: SUNG R COMMENTS:Higher values can be expected in females during menses. Performed By: #### L [id number], [id number], [id number] ####Mobile [employer] Installer: NIEVES RUIZ ([id number])[facility])[address] [place] [address] Magnesium [Mass/Vol] 1.4 mg/dL Low 1.6-2.6 [facility] Comment on above: Result Comment: ESEE R COMMENTS:Higher values can be expected in females during menses. Performed By: #### L [id number], LAB62, [id number], [id number], LAB17 ####[employer] Installer: NIEVES RUIZ ([id number])[facility])[address] [place] [address] Magnesium [Mass/Vol]on 05-11 Interpretation and review of laboratory results Abnormal [facility] No Panel Informationon 05-11 Interpretation and review of laboratory results Abnormal [facility] Extra Tube Hold for add-ons. [facility] Interpretation and review of laboratory results Abnormal [facility] Interpretation and review of laboratory results Abnormal [facility] Interpretation and review of laboratory results Abnormal [facility] No Panel InformationOrdered By: Ebony Thompson on 05-11-2025 Amount Of Oxygen [facility] Interpretation and review of laboratory results Abnormal [facility] Source Of Oxygen None (Room Air) [facility] PHOSPHORUSon 05-11-2025 Phosphate [Mass/Vol] 2.1 mg/dL Low 2.3-4.7 [facility] Comment on above: Performed By: #### L [id number], LAB62, [id number], [id number], LAB17 ####[employer] Installer: NIEVES RUIZ ([id number])[facility])[address] [place] [address] PROCALCITONIN TESTon 025 PROCALCITONIN 0.49 ng/mL High <0.07 [facility] Comment on above: Result Comment: SUNG R COMMENTS:PCT <0.50 = Low risk of severe sepsis and/or septic shock.PCT >2.00 = High risk of severe sepsis and/or septic shock. Performed By: #### L [id number], LAB17, [id number] ####[employer] Installer: NIEVES RUIZ ([id number])[facility])[address] [place] [address] Phosphate [Moles/Vol]on 04-23 Interpretation and review of laboratory results Abnormal [facility] Phosphate [Mass/Vol] 2.1 mg/dL Low 2.3 - 4 .7 mg/dL [facility] URINE CULTUREon 05-11-2025 Bacteria identified Cx Nom (U) Normal [facility] Comment on above: Performed By: #### L [id number] ####Mobile Electronics Installer: NIEVES RUIZ ([id number])[facility] ([facility])[address] [place] [address] Urinalysis complete panel (U )Ordered By: Carol Ann Gore on 05-11-2025 Bacteria LM.HPF (Urine sed) [#/Area] Many Abnormal Negative /HPF [facility] Bilirubin Ql (U) Negative Negative mg/dL [facility] Clarity (U) Extra Turbid Abnormal Clear [facility] Color (U) Yellow Lt. Yellow [facility] Epithelial cells.squamous LM.HPF (Urine sed) [#/Area] 0-2 [facility] Glucose Ql (U) 500 mg/dL Abnormal Normal (<70) [facility] Hemoglobin Ql (U) Negative Negative mg/dL [facility] Hyaline casts Auto (Urine sed) [#/Area] Negative Negative /LPF [facility] Interpretation and review of laboratory results Abnormal [facility] Ketones (U) [Mass/Vol] 10 mg/dL Abnormal Negative [facility] Leukocyte esterase Test strip Ql (U) 500 Abnormal Negative Rad/uL [facility] Mucus LM.HPF (Urine sed) [#/Area] Few Negative /LPF [facility] Nitrite Ql (U) Negative Negative [facility] pH (U) 8.0 [pH] 5.0 - 8.0 pH [facility] Protein (U) [Mass/Vol] 300 mg/dL Abnormal Negative [facility] RBC LM.HPF (Urine sed) [#/Area] 26-50 Abnormal [facility] Specific gravity (U) [Rel density] 1.02 1.005 - 1.030 [facility] Urobilinogen (U) [Mass/Vol] 3 mg/dL Abnormal Normal (0-1) [facility] WBC LM.HPF (Urine sed) [#/Area] /[HPF] Abnormal [facility] Vital signsOrdered By: Ebony Thompson on 05-11-2025 Oxygen saturation in Venous blood 83.1 % [address] 01-20-2025 36 Faxed to PCP office. Normal [facility] 36on 01-19-2025 36 Cancelled appointments. Normal [facility] [address] 01-14-2025 36 Request for refill received from pharmacy Last appointment: 11/25/2024 Next appointment: 01/26/2025 Pharmacy confirmed: [x] Yes [] No Normal [place] [address] 01-03-2025 36 Patient called with negative PET scan. With this and negative biopsy unlikely recurrent endometrial cancer. Will send to her primary care physician, possible pulmonary consult. Normal [facility] PET+CT Bone from skull base to [...] MD Electronically Signed Date/Time: 2025 4:43 PM [facility] [employer] Patient Name: DAMEON POTTER : 1955 [...] convincing malignant appearing increased activity within bone. [facility] RADIOLOGY SYSTEM Jorge Alberto Mathews MD - [...] Electronically Signed Date/Time: 2025 4:43 PM EDT [facility] Radiology Study observation (narrative) [facility] PET+CT Bone from skull base to mid-thigh W [id number]-NaF IVOrdered By: Jorge Alberto Mathews on 2025 [facility] Fwd: Power Work Phone: 36on 01-01-2025 36 Normal [facility] 36on 12-23-2024 36 Normal [facility] [address] bx., will scheudle PET Normal [facility] CBC (HEMOGRAM)on 12-22-2024 Erythrocyte distribution width (RBC) [Ratio] 15.1 % High 11.5-15.0 [facility] Comment on above: Performed By: #### L [id number] ####[employer] Installer: NIEVES RUIZ ([id number])[address] Hematocrit (Bld) [Volume fraction] 33.4 % Low 35.0-47.0 [facility] Comment on above: Performed By: #### L AB294 ####[employer] Installer: NIEVES [id number])[address] Hemoglobin (Bld) [Mass/Vol] 11.1 g/dL Low 11.7-16.0 [facility] Comment on above: Performed By: #### L AB294 ####[employer] Installer: NIEVES [id number])[facility] ([facility])[address] [place] [address] MCH (RBC) [Entitic mass] 29.4 pg Normal 26.0-34.0 [facility] Comment on above: Performed By: #### L AB294 ####[employer] Installer: NIEVES RUIZ ([id number])[facility] ([facility])[address] [place] [address] MCHC 33.2 % Normal 30.5-36.0 [facility] Comment on above: Performed By: #### L AB294 ####[employer] Installer: NIEVES RUIZ ([id number])[facility] ([facility])[address] [place] [address] MCV (RBC) [Entitic vol] 88.6 fL Normal 77.0-99.0 S [facility] Comment on above: Performed By: #### L AB294 ####[employer] Installer: NIEVES RUIZ ([id number])[facility] ([facility])[address] [place] [address] Platelet mean volume (Bld) [Entitic vol] 12.2 fL Normal 9.0-12.7 [facility] Comment on above: Performed By: #### L AB294 ####[employer] Installer: NIEVES RUIZ ([id number])[facility] ([facility])[address] [place] [address] Platelets (Bld) [#/Vol] 219 10*3/uL Normal 140-440 [facility] Comment on above: Performed By: #### L AB294 ####[employer] Installer: NIEVES RUIZ ([id number])[facility] ([facility])[address] [place] [address] RBC (Bld) [#/Vol] 3.77 10*6/uL Low 3.80-5.20 [facility] Comment on above: Performed By: #### L AB294 ####[employer] Installer: NIEVES RUIZ ([id number])[facility] ([facility])[address] [place] [address] WBC (Bld) [#/Vol] 6.0 10*3/uL Normal 3.6-10.7 [facility] Comment on above: Performed By: #### L AB294 ####[employer] Installer: NIEVES RUIZ ([id number])[facility] ([facility] CBC panel Auto (Bld)on 12-22 Erythrocyte distribution width (RBC) [Ratio] 15.1 % High 11.5 - 15.0 % [facility] Hematocrit (Bld) [Volume fraction] 33.4 % Low 35.0 - 47.0 % [facility] Hemoglobin (Bld) [Mass/Vol] 11.1 g/dL Low 11.7 - 16.0 g/dL [facility] Interpretation and review of laboratory results Abnormal [facility] MCH (RBC) [Entitic mass] 29.4 pg 26. 0 - 34.0 pg [facility] MCHC (RBC) [Mass/Vol] 33.2 % 30.5 - 36.0 % [facility] MCV (RBC) [Entitic vol] 88.6 fL 77.0 - 99.0 fL [facility] Platelet mean volume (Bld) [Entitic vol] 12.2 fL 9.0 - 12.7 fL [facility] Platelets (Bld) [#/Vol] 219 10*3/uL 140 - 440 10*3/uL [facility] RBC (Bld) [#/Vol] 3.77 10*6/uL Low 3.80 - 5.2 0 10*6/uL [facility] WBC (Bld) [#/Vol] 6 10*3/uL 3.6 - 10.7 10*3/uL [facility] CT GUIDED BIOPSY ABDOMEN OR RETROPERITONEUMon 12-22-2024 CT GUIDED BIOPSY ABDOMEN OR RETROPERITONEUM Normal [facility] CT Guidance for biopsy of Re troperitoneumon 12-22-[address] guided biopsy of enlarged lower right retroperitoneal lymph node as discussed. Report Dictated on Electronically Signed By: Tha Hamm MD Electronically Signed Date/Time: 12/22/2024 11:15 AM [facility] RADIOLOGY SYSTEM Patient Name: DAMEON POTTER : [...] procedure. The interservice time was [address] scans were obtained. Dose reduction [...] procedure and there were no immediate complications. [facility] RADIOLOGY SYSTEM Tha Hamm MD - 12/22/2024 [...] procedure. The interservice time was [address] scans were obtained. Dose reduction [...] discussed. Report Dictated on Electronically Signed By: Tah Hamm MD Electronically Signed Date/Time: 12/22/2024 11:15 AM EDT [facility] Radiology Study observation (narrative) [facility] CT Guidance for biopsy of Re troperitoneumOrdered By: Tha Hamm on 12-22-2024 [facility] Work Phone: Laboratory - Coagulationon 0 12-22-2024 PT Coag (Bld) [Time] 10.9 s 9.0 - 1 2.0 s [facility] Nursing Noteon 12-22-2024 Nursing Note Discharge instructions given patient verbalizes understanding. IV discontinued, Bx. Site intact no complications. Patient wheeled out via wheelchair Normal [facility] Nursing Note Pt c/o nausea. Ginge r rick and crackers provided. Normal [facility] PROTHROMBIN TIMEon INR Coag (PPP) [Relative time] 1.0 {INR} Normal 0.9-1.1 [facility] Comment on above: Result Comment: Regan mmended [...] Myocardial Infarction Performed By: #### L [id number] ####[employer] Installer: NIEVES RUIZ ([id number])[facility] ([address] PT Coag (PPP) [Time] 10.9 s Normal 9.0-12.0 [facility] Comment on above: Performed By: #### L [id number] ####[employer] Installer: NIEVES RUIZ ([id number])[facility] ([facility] PT Coag (Bld) [Time]on 12-22 INR Coag (PPP) [Relative time] 1 {INR} 0.9 - 1.1 [facility] Comment on above: Recommended [...] Infarction Interpretation and review of laboratory results [facility] [id number] 12-11-2024 [id number] [facility] 36on 12-11-2024 36 [facility] Progress Noteon 12-08-2024 Progress Note Normal [facility] Progress Note Core Shaper Sides was hong mims to the patient for exam. Patient accepted, medical oncology physician in room during exam [facility] 36on 12-04-2024 36 [facility] Progress Noteon 11-25-2024 Progress Note Normal [facility] Progress Note Normal [facility] Progress Note Normal [facility] Progress Noteon 11-21-2024 Progress Note -Continue atorvastatin Normal [facility] Progress Note - stable - continue Celexa 20 units daily [facility] Progress Note -Continue brimonidine, timolol Normal [facility] Progress Note -11/02 TSH 3.03 -Continue levothyroxine Normal [facility] Progress Note -BGTs have improved, average 150 -11/02 A1C 12.9 -Continue Lispro to 15U with meals -Continue Lantus 28 units, and metformin ER 500mg daily -Accuchecks monitor trends -Hypoglycemia protocol in place [facility] Progress Note -11/10 Vitamin D: 26, patient likely not taking supplementation regularly -Continue daily supplement for now- 2000 units daily Normal [facility] Progress Note -BLE wrapped at time of exam -Unna boot treatments applied 11/17 -10 lbs weight gained since admission likely 2/2 lymphedema and improved oral intake -In-house wound care following patient while admitted Normal [facility] Progress Note - lost to follow up with gyne - will need follow up - reviewed with patient today Normal [facility] Progress Note Normal [facility] Progress Note -Overall controlled currently -Prior to admission on olmesartan, and carvedilol discontinued for now -Continue metoprolol -[facility] on 12/02 as above Normal [facility] Progress Note Normal [facility] Progress Note - has PRN albuterol - hasn't used it since admission Normal [facility] Progress Note -continue melatonin 5mg nightly Normal [facility] Progress Note Normal [facility] Progress Note -BIMS 05/06 - continuing to make improvements with Speech Therapy in area of cognition - Recommend outpatient follow up at the [facility] [facility]) for formal congitive testing Normal [facility] Progress Note Normal [facility] Progress Note - wound team started Bactrim 11/17-11/24 for bilateral LE cellulitis - both legs were very swollen and weeping per report Normal [facility] Progress Note Normal [facility] 36on 11-19-2024 36 Letter mailed to patient Normal [facility] Progress Noteon 11-18-2024 Progress Note Normal [facility] Progress Note Normal [facility] Progress Note Normal [facility] 36on 11-13-2024 36 Second attempt to reach patient no answer/unable to leave voicemail. Normal [facility] 36on 11-12-2024 36 Attempted to reach patient no answer/unable to leave voicemail. Normal [facility] CT Abdomen and Pelvis WO and [...] MD Electronically Signed Date/Time: 11/12/2024 5:47 PM [facility] RADIOLOGY SYSTEM Patient Name: DAMEON POTTER : 1955 [id number] Exam Date/Time: 11/11/2024 08:29 Procedure: CT CHEST [...] lesions are seen on the bone windows. [facility] RADIOLOGY SYSTEM Melo Luis MD - 11/12/2024 [...] evaluation. Report Dictated on Electronically Signed By: Mleo Luis MD Electronically Signed Date/Time: 11/12/2024 5:47 PM EDT [facility] CT Abdomen and Pelvis WO and W contrast IVOrdered By: Melo Luis on 11-12-[address] [facility] [address] CHEST ABDOMEN PELVIS W CO NTRASTon 11-12-2024 CT CHEST ABDOMEN PELVIS W CONTRAST Normal [facility] CT HEAD W AND WO IV CONTRAST on 11-12-2024 CT HEAD W AND WO IV CONTRAST Normal [facility] CT Head WO and W contrast IV on 11-12-2024 No acute intracrania l abnormality. No enhancing lesions. Report Dictated on Electronically Signed By: Curt Monsalve MD Electronically Signed Date/Time: 11/12/2024 3:42 PM EDT [facility] RADIOLOGY SYSTEM Patient Name: DAMEON POTTER : [...] sinuses and orbits are within normal limits. [facility] Curt Monsalve M D - [...] Electronically Signed Date/Time: 11/12/2024 3:42 PM EDT [facility] CT Head WO and W contrast IV Ordered By: Curt Monsalve on 11-12-2024 [facility] Work Phone: Progress Noteon 11-12-2024 Progress Note Normal [facility] Progress Note -Swelling noticeable today on exam, especially to LLE. Seen today by wound care MARKETING DESIGNER, awaiting orders from wound SHOWROOM EXECUTIVE DIRECTOR per documentation -BLE follows with wound care center per patient -In-house wound care following patient while admitted Normal [facility] Progress Note Normal [facility] CT Abdomen and Pelvis WO and W contrast Brittany 11-11-2024 Radiology Study observation (narrative) Nikole Polanco alth CT Head WO and W contrast IV on 11-11-2024 Radiology Study observation (narrative) [facility] Polanco [facility]th [id number] 11-10-2024 [id number] Patient Choice Patient Name: DAMEON POTTER Date of : 1955 Normal [facility] Progress Noteon 11-10-2024 Progress Note -Schedule melatonin 5mg nightly Normal [facility] Progress Note Normal [facility] Progress Note -BGTs remain elevate d -11/02 A1C 12.9 -Increase Lispro to 10U with meals -Continue Lantus 28 units -Could consider addition of metformin as could help with insulin resistance 2/2 to PCOS -Accuchecks monitor trends -Hypoglycemia protocol in place Normal [facility] Progress Note Normal [facility] Progress Noteon 11-08-2024 Progress Note Normal [facility] Progress Note - Continue Physical Therapy/ Occupational Therapy with goal to improve function Normal [facility] Progress Note -Continue atorvastatin Normal [facility] Progress Note - patient very upset about being in long-term - will continue to work with her and family to determine best discharge - continue Celexa 20 units daily Normal [facility] Progress Note -11/02 TSH 3.03 -Continue levothyroxine Normal [facility] Progress Note -BGTs elevated since arrival to [facility] -11/02 A1C 12.9 -Continue Lispro 8U with meals, and increase Lantus from 24 to 28 units -Accuchecks monitor trends -Hypoglycemia protocol in place Normal [facility] Progress Note -Check Vitamin D level 11/10 -Continue daily supplement for now Normal [facility] Progress Note - long standing per chart Normal [facility] Progress Note - lost to follow up with gyne - disposition from [facility] not clear yet - will need follow up Normal [facility] Progress Note -Continue brimonidine, timolol Normal [facility] Progress Note Normal [facility] Progress Note -Overall controlled currently -Prior to admission on olmesartan, and carvedilol discontinued for now -Continue metoprolol -Has [place] [facility] [place]iology on 12/02 as above [facility] Progress Note Normal [facility] 36on 11-07-2024 36 Normal [facility] Progress Noteon 11-07-2024 Progress Note Normal [facility] Progress Noteon 11-06-2024 Progress Note -BGTs elevated since arrival to [facility] -11/02 A1C 12.9 -Will add low dose SSI today, likely will need increase in prandial insulin next week -Continue Lispro 8U with meals, and 24U Lantus -Accuchecks monitor trends -Hypoglycemia protocol in place Normal [facility] Progress Note -Check Vitamin D level 11/07 -Continue daily supplement for now Normal [facility] Progress Note -11/02 TSH 3.03 -Continue levothyroxine Normal [facility] Progress Note -Continue brimonidine, timolol Normal [facility] Progress Note -Continue atorvastatin Normal [facility] Progress Note -Overall controlled currently -Prior to admission on olmesartan, and carvedilol discontinued for now -Continue metoprolol -Has follow[place] with [facility] Cardiology on 12/02 as above [facility] Progress Note Normal [facility] Progress Note Normal [facility] Progress Note Normal [facility] Progress Note -Current status: assist x1 -Contributing factors: hospitalization, acute illness, new onset afib -Continue PT/OT during SNF stay -SW to follow for discharge planning Normal [facility] Progress Note Normal [facility] 30on 11-05-2024 30 Normal [facility] 30 Normal [facility] [id number] 11-05-2024 [id number] Normal [facility] [id number] [facility] [id number] Discharge med list transmitted to [facility] [place] request. [id number] completed in [facility] per [facility] request. Facility notified via [employer]. [facility] [phone] [facility] tasked to send discharge order, MAR and 7000 to [place]. Normal [facility] [id number] VM discontinued yesterday at 1pm. [place] updated an asked if they would have a bed. Geriatrics/ cards following. Normal [facility] 36on 11-05-2024 36 Admitted to [facility]. Orders reviewed. Will see on Sunday. Normal [facility] BASIC METABOLIC PANELon 10-21 Anion gap [Moles/Vol] 11 mmol/L Normal 3-13 [facility] Comment on above: Performed By: #### L AB15 ####[employer] Installer: NIEVES RUIZ ([id number])[facility] ([facility])[address] [place] [address] Calcium [Mass/Vol] 8.0 mg/dL Low 8.8-10.0 [facility] Comment on above: Performed By: #### L AB15 ####[employer] Installer: NIEVES RUIZ ([id number])[facility] ([facility])[address] [place] [address] [place] Chloride [Moles/Vol] 107 mmol/L Normal 98-107 [facility] Comment on above: Performed By: #### L AB15 ####[employer] Installer: NIEVES RUIZ ([id number])[facility] [facility] ([facility])[address] [place] [address] [place] CO2 [Moles/Vol] 19 mmol/L Low 23-31 [facility] Comment on above: Performed By: #### L AB15 ####[employer] Installer: NIEVES RUIZ ([id number])[facility] ([facility])[address] [place] [address] Creatinine [Mass/Vol] 0.85 mg/dL Normal 0.57-1.11 [facility] Comment on above: Performed By: #### L AB15 ####[employer] Installer: NIEVES RUIZ ([id number])[facility] ([facility])[address] [place] [address] [place] GLOMERULAR FILTRATION RATE ML/MIN/1.73 SQ M.PREDICTED 74.3 mL/min/1.73m*2 Normal >60.0 [facility] Comment on above: Result Comment: Calc ulation based on the Chronic Kidney Disease Epidemiology Collaboration (CKD-EPI) equation refit without adjustment for race Performed By: #### L AB15 ####[employer] Installer: NIEVES RUIZ ([id number])[facility])[address] [place] [address] Glucose [Mass/Vol] 138 mg/dL High 82-115 [facility] Comment on above: Performed By: #### L AB15 ####[employer] Installer: NIEVES RUIZ ([id number])[facility])[address] [place] [address] Potassium [Moles/Vol] 3.5 mmol/L Normal 3.5-5.1 [facility] Comment on above: Result Comment: [facility] potassium values may be up to 0.5 mmol/L lower than serum values. Performed By: #### L AB15 ####[employer] Installer: NIEVES RUIZ ([id number])[facility])[address] [place] [address] Sodium [Moles/Vol] 137 mmol/L Normal 136-145 [facility] Comment on above: Performed By: #### L AB15 ####[employer] Installer: NIEVES RUIZ ([id number])[address] Urea nitrogen [Mass/Vol] 27 mg/dL High 9-23 [facility] Comment on above: Performed By: #### L AB15 ####[employer] Installer: NIEVES RUIZ ([id number])[address] Basic metabolic 1998 panelon 11-05-2024 Anion gap [Moles/Vol] 11 mmol/L 3 - 13 mmol/L [facility] Calcium [Mass/Vol] 8 mg/dL Low 8.8 - 10. 0 mg/dL [facility] Chloride [Moles/Vol] 107 mmol/L 98 - 10 7 mmol/L [facility] CO2 [Moles/Vol] 19 mmol/L Low 23 - 31 mmol/L [facility] Creatinine [Mass/Vol] 0.85 mg/dL 0.57 - 1.11 mg/dL [facility] GFR/1.73 sq M.predicted (S/P/Bld) [Vol rate/Area] 74.3 mL/min - PINF [facility] Comment on above: Calculation based on the Chronic Kidney Disease Epidemiology Collaboration (CKD-EPI) equation refit without adjustment for race Glucose [Mass/Vol] 138 mg/dL High 82 - 115 mg/dL [facility] Interpretation and review of laboratory results Abnormal [facility] Potassium [Moles/Vol] 3.5 mmol/L 3.5 - 5.1 mmol/L [facility] Comment on above: Plasma potassium syed ues may be up to 0.5 mmol/L lower than serum values. Sodium [Moles/Vol] 137 mmol/L 136 - 145 mmol/L [facility] Urea nitrogen [Mass/Vol] 27 mg/dL High 9 - 23 mg/dL [facility] Laboratory - Chemistry and C hemistry - challengeon 11-05-2024 Glucose [Mass/Vol] 192 mg/dL High 70 - 100 mg/dL [facility] No Panel Informationon 11-05 Interpretation and review of laboratory results Abnormal [facility] Performed by: [facility], [address] [place] [address] CLIA ID: [id number] [facility] Nursing Noteon 11-05-2024 Nursing Note Gave report to [facility] [place]. Normal [facility] Progress Noteon 11-05-2024 Progress Note Normal [facility] Progress Note Normal [facility] [id number] 11-04-2024 [id number] [place] able to accept pt. Ramila cao talked with pt. She will need to be 24hr free of VM. Provider and nurse notified. Normal [facility] [id number] Normal [facility] [id number] Normal [facility] Bacteria identified Cx Nom ( U)Ordered By: Alida Carrington on 11-04-2024 Interpretation and review of laboratory results Abnormal [facility] CBC (HEMOGRAM)on 11-04-2024 Erythrocyte distribution width (RBC) [Ratio] 13.6 % Normal 11.5-15.0 [facility] Comment on above: Performed By: #### L [id number] ####[employer] Installer: NIEVES RUIZ ([id number])[facility])[address] [place] [address] Hematocrit (Bld) [Volume fraction] 35.5 % Normal 35.0-47.0 [facility] Comment on above: Performed By: #### L AB294 ####[employer] Installer: NIEVES RUIZ ([id number])[facility])[address] [place] [address] Hemoglobin (Bld) [Mass/Vol] 11.8 g/dL Normal 11.7-16.0 [facility] Comment on above: Performed By: #### L AB294 ####[employer] Installer: NIEVES RUIZ ([id number])[facility])[address] [place] [address] [place] IPF 8 Normal [facility] Comment on above: Performed By: #### L AB294 ####[employer] Installer: NIEVES RUIZ ([id number])[facility])[address] [place] [address] MCH (RBC) [Entitic mass] 29.0 pg Normal 26.0-34.0 [facility] Comment on above: Performed By: #### L AB294 ####[employer] Installer: NIEVES RUIZ ([id number])[facility])[address] [place] [address] MCHC 33.2 % Normal 30.5-36.0 [facility] Comment on above: Performed By: #### L AB294 ####[employer] Installer: NIEVES RUIZ ([id number])[facility])[address] [place] [address] MCV (RBC) [Entitic vol] 87.2 fL Normal 77.0-99.0 [facility] Comment on above: Performed By: #### L AB294 ####[employer] Installer: NIEVES RUIZ ([id number])[facility] ([facility])[address] [place] [address] Platelet mean volume (Bld) [Entitic vol] 13.1 fL High 9.0-12.7 [facility] Comment on above: Performed By: #### L AB294 ####[employer] Installer: NIEVES RUIZ ([id number])[facility] ([facility])[address] [place] [address] Platelets (Bld) [#/Vol] 103 10*3/uL Low 140-440 [facility] Comment on above: Performed By: #### L AB294 ####[employer] Installer: NIEVES RUIZ ([id number])[facility] ([facility])[address] [place] [address] RBC (Bld) [#/Vol] 4.07 10*6/uL Normal 3.80-5.20 [facility] Comment on above: Performed By: #### L AB294 ####[employer] Installer: NIEVES RUIZ ([id number])[facility] ([facility])[address] [place] [address] WBC (Bld) [#/Vol] 8.1 10*3/uL Normal 3.6-10.7 [facility] Comment on above: Performed By: #### L AB294 ####[employer] Installer: NIEVES RUIZ ([id number])[facility] ([facility])[address] [place] [address] CBC panel Auto (Bld)Ordered By: Cornelio Mathew on 11-04-2024 Erythrocyte distribution width (RBC) [Ratio] 13.6 % 11.5 - 15.0 % [facility] Hematocrit (Bld) [Volume fraction] 35.5 % 35.0 - 47.0 % [facility] Hemoglobin (Bld) [Mass/Vol] 11.8 g/dL 11.7 - 16.0 g/dL [facility] Interpretation and review of laboratory results Abnormal [facility] th IPF 8 [facility] MCH (RBC) [Entitic mass] 29 pg 26. 0 - 34.0 pg [facility] MCHC (RBC) [Mass/Vol] 33.2 % 30.5 - 36.0 % [facility] MCV (RBC) [Entitic vol] 87.2 fL 77.0 - 99.0 fL [facility] Platelet mean volume (Bld) [Entitic vol] 13.1 fL High 9.0 - 12.7 fL [facility] Platelets (Bld) [#/Vol] 103 10*3/uL Low 140 - 440 10*3/uL [facility] RBC (Bld) [#/Vol] 4.07 10*6/uL 3.80 - 5.2 0 10*6/uL [facility] WBC (Bld) [#/Vol] 8.1 10*3/uL 3.6 - 10.7 10*3/uL [facility] Consulton 11-04-2024 Consult Normal [facility] Laboratory - Chemistry and C hemistry - challengeon 11-04-2024 Glucose [Mass/Vol] 230 mg/dL High 70 - 100 mg/dL [facility] Glucose [Mass/Vol] 220 mg/dL High 70 - 100 mg/dL [facility] Glucose [Mass/Vol] 186 mg/dL High 70 - 100 mg/dL [facility] Glucose [Mass/Vol] 195 mg/dL High 70 - 100 mg/dL [facility] Laboratory - Microbiology an d Antimicrobial susceptibilityOrdered By: Alida Carrington on 11-04-2024 Bacteria identified Cx Nom (U) Normal urogenital miah present [facility] Bacteria identified Cx Nom (U) >100,000 CFU/mL Escherichia coli Abnormal [facility] No Panel Informationon 11-04 Interpretation and review of laboratory results Abnormal [facility] th Performed by: [facility], [address] [place] [address] CLIA ID: [id number] [facility] Interpretation and review of laboratory results Abnormal [facility] th Performed by: [facility], [address] [place] [address] CLIA ID: [id number] [facility] Interpretation and review of laboratory results Abnormal [facility] Performed by: [facility], [address] [place] [address] CLIA ID: [id number] [facility] Interpretation and review of laboratory results Abnormal [facility] th Performed by: [facility], [address] [place] [address] CLIA ID: [id number] [facility] Nursing Noteon 11-04-2024 Nursing Note Visual monitor removed from room. Pt has been free of any events today that would require a monitor Normal [facility] Progress Noteon 11-04-2024 Progress Note Normal [facility] Normal [facility] Progress Note Normal [facility] [id number] 11-03-2024 [id number] Normal [facility] APTTon 11-03-2024 aPTT Coag (Bld) [Time] 26.5 s Normal 20.0-30.5 [facility] Comment on above: Result Comment: SUNG Bryan COMMENTS:NOTE: The therapeutic time for Heparin anticoagulation, based on Xa activity inhibition, is an APTT of 46-80 seconds. Performed By: #### L AB325 ####[employer] Installer: NIEVES RUIZ ([id number])[facility] ([facility])[address] [place] [address] BASIC METABOLIC PANELon 10-21 Anion gap [Moles/Vol] 13 mmol/L Normal 3-13 [facility] Comment on above: Performed By: #### L AB15, LAB67 ####[employer] Installer: NIEVES RUIZ ([id number])[facility] [place] [address] Calcium [Mass/Vol] 8.8 mg/dL Normal 8.8-10.0 [facility] Comment on above: Performed By: #### L AB15, LAB67 ####[employer] Installer: NIEVES RUIZ ([id number])[facility])[address] [place] [address] Chloride [Moles/Vol] 105 mmol/L Normal 98-107 [facility] Comment on above: Performed By: #### L AB15, LAB67 ####[employer] Installer: NIEVES RUIZ ([id number])[facility] ([facility])[address] [place] [address] CO2 [Moles/Vol] 19 mmol/L Low 23-31 [facility] Comment on above: Performed By: #### L AB15, LAB67 ####[employer] Installer: NIEVES RUIZ ([id number])[facility])[address] [place] [address] Creatinine [Mass/Vol] 1.03 mg/dL Normal 0.57-1.11 [facility] Comment on above: Performed By: #### L AB15, LAB67 ####[employer] Installer: NIEVES RUIZ ([id number])[facility])[address] [place] [address] GLOMERULAR FILTRATION RATE ML/MIN/1.73 SQ M.PREDICTED 59.0 mL/min/1.73m*2 Low >60.0 [facility] Comment on above: Result Comment: Calc ulation based on the Chronic Kidney Disease Epidemiology Collaboration (CKD-EPI) equation refit without adjustment for race Performed By: #### L AB15, LAB67 ####[employer] Installer: NIEVES RUIZ ([id number])[facility])[address] [place] [address] Glucose [Mass/Vol] 238 mg/dL High 82-115 [facility] Comment on above: Performed By: #### L AB15, LAB67 ####[employer] Installer: NIEVES RUIZ ([id number])[facility])[address] [place] [address] Potassium [Moles/Vol] 3.6 mmol/L Normal 3.5-5.1 [facility] Comment on above: Result Comment: [facility] potassium values may be up to 0.5 mmol/L lower than serum values. Performed By: #### L AB15, LAB67 ####[employer] Installer: NIEVES RUIZ ([id number])[facility])[address] [place] [address] [place] Sodium [Moles/Vol] 137 mmol/L Normal 136-145 [facility] Comment on above: Performed By: #### L AB15, LAB67 ####[employer] Installer: NIEVES RUIZ ([id number])[facility])[address] [place] [address] Urea nitrogen [Mass/Vol] 31 mg/dL High 9-23 [facility] Comment on above: Performed By: #### L AB15, LAB67 ####[employer] Installer: NIEVES RUIZ ([id number])[facility] ([facility])[address] [place] [address] Basic metabolic 1998 panelon 11-03-2024 Anion gap [Moles/Vol] 13 mmol/L 3 - 13 mmol/L [facility] Calcium [Mass/Vol] 8.8 mg/dL 8.8 - 10. 0 mg/dL [facility] Chloride [Moles/Vol] 105 mmol/L 98 - 10 7 mmol/L [facility] CO2 [Moles/Vol] 19 mmol/L Low 23 - 31 mmol/L [facility] Creatinine [Mass/Vol] 1.03 mg/dL 0.57 - 1.11 mg/dL [facility] GFR/1.73 sq M.predicted (S/P/Bld) [Vol rate/Area] 59 mL/min Low - PINF [facility] Comment on above: Calculation based on the Chronic Kidney Disease Epidemiology Collaboration (CKD-EPI) equation refit without adjustment for race Glucose [Mass/Vol] 238 mg/dL High 82 - 115 mg/dL [facility] Interpretation and review of laboratory results Abnormal [facility] th Potassium [Moles/Vol] 3.6 mmol/L 3.5 - 5.1 mmol/L [facility] Comment on above: Plasma potassium syed ues may be up to 0.5 mmol/L lower than serum values. Sodium [Moles/Vol] 137 mmol/L 136 - 145 mmol/L [facility] Urea nitrogen [Mass/Vol] 31 mg/dL High 9 - 23 mg/dL [facility] CBC (HEMOGRAM)on 11-03-2024 Erythrocyte distribution width (RBC) [Ratio] 13.6 % Normal 11.5-15.0 [facility] Comment on above: Performed By: #### L AB294 ####[employer] Installer: NIEVES RUIZ ([id number])[facility])[address] [place] [address] Hematocrit (Bld) [Volume fraction] 37.8 % Normal 35.0-47.0 [facility] Comment on above: Performed By: #### L AB294 ####[employer] Installer: NIEVES RUZI ([id number])[facility])[address] [place] [address] Hemoglobin (Bld) [Mass/Vol] 12.8 g/dL Normal 11.7-16.0 [facility] Comment on above: Performed By: #### L AB294 ####[employer] Installer: NIEVES RUIZ ([id number])[facility])[address] [place] [address] MCH (RBC) [Entitic mass] 28.9 pg Normal 26.0-34.0 [facility] Comment on above: Performed By: #### L AB294 ####[employer] Installer: NIEVES RUIZ ([id number])[facility] ([facility])[address] [place] [address] MCHC 33.9 % Normal 30.5-36.0 [facility] Comment on above: Performed By: #### L AB294 ####[employer] Installer: NIEVES RUIZ ([id number])[facility])[address] [place] [address] MCV (RBC) [Entitic vol] 85.3 fL Normal 77.0-99.0 [facility] Comment on above: Performed By: #### L AB294 ####[employer] Installer: NIEVES RUIZ ([id number])[facility])[address] [place] [address] Platelet mean volume (Bld) [Entitic vol] 13.0 fL High 9.0-12.7 [facility] Comment on above: Performed By: #### L AB294 ####[employer] Installer: NIEVES RUIZ ([id number])[facility] [place] [address] Platelets (Bld) [#/Vol] 200 10*3/uL Normal 140-440 [facility] Comment on above: Performed By: #### L AB294 ####[employer] Installer: NIEVES RUIZ ([id number])[address] RBC (Bld) [#/Vol] 4.43 10*6/uL Normal 3.80-5.20 [facility] Comment on above: Performed By: #### L AB294 ####[employer] Installer: NIEVES RUIZ ([id number])[address] WBC (Bld) [#/Vol] 8.8 10*3/uL Normal 3.6-10.7 [facility] Comment on above: Performed By: #### L AB294 ####[employer] Installer: NIEVES RUIZ ([id number])[address] CBC panel Auto (Bld)on 11-03 Erythrocyte distribution width (RBC) [Ratio] 13.6 % 11.5 - 15.0 % [facility] Hematocrit (Bld) [Volume fraction] 37.8 % 35.0 - 47.0 % [facility] Hemoglobin (Bld) [Mass/Vol] 12.8 g/dL 11.7 - 16.0 g/dL [facility] Interpretation and review of laboratory results Abnormal [facility] MCH (RBC) [Entitic mass] 28.9 pg 26. 0 - 34.0 pg [facility] MCHC (RBC) [Mass/Vol] 33.9 % 30.5 - 36.0 % [facility] MCV (RBC) [Entitic vol] 85.3 fL 77.0 - 99.0 fL [facility] Platelet mean volume (Bld) [Entitic vol] 13 fL High 9.0 - 12.7 fL [facility] Platelets (Bld) [#/Vol] 200 10*3/uL 140 - 440 10*3/uL [facility] RBC (Bld) [#/Vol] 4.43 10*6/uL 3.80 - 5.2 0 10*6/uL [facility] WBC (Bld) [#/Vol] 8.8 10*3/uL 3.6 - 10.7 10*3/uL [facility] Cobalamin (Vitamin B12) [Mas s/Vol]on 11-03-2024 Interpretation and review of laboratory results Abnormal [facility] Consulton 11-03-2024 Consult Normal [facility] Consult Normal [facility] Laboratory - Chemistry and C hemistry - challengeon 11-03-2024 Glucose [Mass/Vol] 246 mg/dL High 70 - 100 mg/dL [facility] Glucose [Mass/Vol] 227 mg/dL High 70 - 100 mg/dL [facility] Cobalamin (Vitamin B12) [Mass/Vol] 1369 pg/mL High 213 - 816 pg/mL [facility] Comment on above: TC Significant interference from hemolysis. Result integrity compromised. Interpret with caution. Glucose [Mass/Vol] 264 mg/dL High 70 - 100 mg/dL [facility] Glucose [Mass/Vol] 257 mg/dL High 70 - 100 mg/dL [facility] No Panel Informationon 11-03 Interpretation and review of laboratory results Abnormal [facility] Performed by: [facility], [address] [place] [address] CLIA ID: [id number] [facility] Interpretation and review of laboratory results Abnormal [facility] Performed by: [facility], [address] [place] [id number] CLIA ID: [id number] [facility] Interpretation and review of laboratory results Abnormal [facility] Performed by: [facility], [address] [place] [id number] CLIA ID: [id number] [facility] Interpretation and review of laboratory results Abnormal [facility] Performed by: [facility], [address] [place] [address] CLIA ID: [id number] [facility] Progress Noteon 11-03-2024 Progress Note Normal [facility] Progress Note Normal [facility] Progress Note Normal [facility] Progress Note Normal [facility] Progress Note OCCUPATIONAL THERAPY [facility] Name/MRN: Dameon Potter ([id number]) Date: 11/03/2024 OT eval and treat order received. Patient chart reviewed. Patient currently starting bedside ECHO. Will continue to follow. Laura Combs, OT [facility] Fwd: [facility] US Heart TransthoracicOrdere d By: Jorden Greenberg on 11-03-2024 Ao Root Index 1.8 cm/m2 [facility] Work Phone: Aortic Root 3.7 cm [facility] Work Phone: Aortic Sinus Valsalva 3.7 cm [facility] Work Phone: Aortic Sinus Valsalva Index 1.8 cm/m2 [facility] Work Phone: Aortic valve Mean systole pressure gradient by US.doppler derived full Bernoulli 18 mmHg [facility] Work Phone: Aortic valve Orifice area by US 2.8 cm2 [facility] Work Phone: Aortic valve Peak systolic flow by US.doppler 2 m/s [facility] Work Phone: Ascending Aorta 3.4 cm [facility] Work Phone: Ascending Aorta Index 1.65 cm/m2 [facility] Work Phone: AV Area by Peak Velocity 1.2 cm2 [facility] Work Phone: AV Area by VTI 1.3 cm2 [facility] Work Phone: AV AT 74.22 ms [facility] Work Phone: AV Peak Gradient 28 mmHg [facility] Work Phone: AV Peak Velocity 2.7 m/s [facility] Work Phone: AV Velocity Ratio 0.41 [facility] Work Phone: AV VTI 40.4 cm [facility] Work Phone: PEÑA/BSA Peak Velocity 0.6 cm2/m2 [facility] Work Phone: PEÑA/BSA VTI 0.6 cm2/m2 [facility] Work Phone: Est. RA Pressure 15 mmHg [facility] Work Phone: Interpretation and review of laboratory results Abnormal [facility] Work Phone: IVC Diameter 2.3 cm [facility] Work Phone: LA Volume 2C 61 mL Abnormal 22 - 52 mL [facility] Work Phone: LA Volume 4C 66 mL Abnormal 22 - 52 mL [facility] Work Phone: LA Volume A/L 66 mL [facility] Work Phone: LA Volume BP 63 mL Abnormal 22 - 52 mL [facility] Work Phone: LA Volume Index 2C 30 mL/m2 16 - 34 mL/m2 [facility] Work Phone: [phone] LA Volume Index 4C 32 mL/m2 16 - 34 mL/m2 [facility] Work Phone: LA Volume Index A/L 32 mL/m2 16 - 34 mL/m2 [facility] Work Phone: [phone] LA Volume Index BP 31 ml/m2 16 - 34 ml/m2 [facility] Work Phone: Left ventricular Ejection fraction by US.2D+Calculated by biplane method of disks 61 % 55 - 100 % [facility] Work Phone: LV EDV A2C 75 mL [facility] Work Phone: LV EDV A4C 70 mL [facility] Work Phone: LV EDV BP 74 mL 56 - 104 mL [facility] Work Phone: LV EDV Index A2C 36 mL/m2 [facility] Work Phone: LV EDV Index A4C 34 mL/m2 [facility] Work Phone: LV EDV Index BP 36 mL/m2 [facility] Work Phone: LV Ejection Fraction A2C 58 % [facility] Work Phone: LV Ejection Fraction [...] Phone: LV ESV Index BP 14 mL/m2 [facility] Work Phone: LVOT Cardiac Output 7.3 liter/mi nut e [facility] Work Phone: LVOT Diameter 1.9 cm [facility] Work Phone: LVOT Mean Gradient 3 mmHg [facility] Work Phone: [phone] LVOT Peak Gradient 5 mmHg [facility] Work Phone: [phone] LVOT Peak Velocity 1.1 m/s [facility] Work Phone: [phone] LVOT Stroke Volume Index 25.3 mL/m2 [facility] Work Phone: LVOT SV 52.1 ml [facility] Work Phone: LVOT VTI 18.4 cm [facility] Work Phone: LVOT:AV VTI Index 0.46 [facility] Work Phone: [phone] RA Area 4C 39.1 mL [facility] Work Phone: [phone] RA Area 4C 38.4 mL [facility] Work Phone: [phone] RV Basal Dimension 3.9 cm [facility] Work Phone: [phone] RV Free Wall Peak S' 15 cm/s [facility] Work Phone: [phone] RV Longitudinal Dimension 6.6 cm [facility] Work Phone: [phone] RV Mid Dimension 3 cm [facility] Work Phone: Sinotubular Junction 2.8 cm [facility] Work Phone: TAPSE 2.1 cm 1.7 cm [facility] Work Phone: [facility] Work Phone: [facility] Transthoracicon Left Ventricle: Left ventricle is smaller [...] (Vitamin B12) [Mass/Vol] 1369 pg/mL High 213-816 [facility] Comment on above: Result Comment: TCSi gnificant interference from hemolysis. Result integrity compromised. Interpret with caution. Performed By: #### L AB15, [id number] ####[employer] Installer: NIEVES RUIZ ([id number])[facility])[address] [place] [address] aPTT Coag (Bld) [Time]on aPTT Coag (PPP) [Time] 26.5 s 20.0 - 30.5 s [facility] Interpretation and review of laboratory results Normal [facility] NOTE: The therapeuti c time for Heparin anticoagulation, based on Xa activity inhibition, is an APTT of 46-80 seconds. [facility] 30on 11-02-2024 30 Normal [facility] AMMONIAon 11-02-2024 Ammonia (P) [Moles/Vol] 31 umol/L Normal 18-72 [facility] Comment on above: Result Comment: TCHe molyzed samples should not be used. Performed By: #### L AB47 ####[employer] Installer: NIEVES RUIZ ([id number])[address] APTTon 11-02-2024 aPTT Coag (Bld) [Time] 21.1 s Normal 20.0-30.5 [facility] Comment on above: Result Comment: ORDE R COMMENTS:NOTE: The therapeutic time for Heparin anticoagulation, based on Xa activity inhibition, is an APTT of 46-80 seconds. Performed By: #### L [id number] ####[employer] Installer: NIEVES RUIZ ([id number])[facility])[address] [place] [address] BASIC METABOLIC PANELon - Anion gap [Moles/Vol] 12 mmol/L Normal -13 [facility] Comment on above: Performed By: #### L AB15 ####[employer] Installer: NIEVES RUIZ ([id number])[facility] ([facility])[address] [place] [address] Calcium [Mass/Vol] 8.9 mg/dL Normal 8.8-10.0 [facility] Comment on above: Performed By: #### L AB15 ####[employer] Installer: NIEVES RUIZ ([id number])[facility] ([facility])[address] [place] [address] [place] Chloride [Moles/Vol] 102 mmol/L Normal 98-107 [facility] Comment on above: Performed By: #### L AB15 ####[employer] Installer: NIEVES RUIZ ([id number])[facility] ([facility])[address] [place] [address] CO2 [Moles/Vol] 19 mmol/L Low 23-31 [facility] Comment on above: Performed By: #### L AB15 ####[employer] Installer: NIEVES RUIZ ([id number])[facility] ([facility])[address] [place] [address] Creatinine [Mass/Vol] 1.26 mg/dL High 0.57-1.11 [facility] Comment on above: Performed By: #### L AB15 ####[employer] Installer: NIEVES RUIZ ([id number])[facility] ([facility])[address] [place] [address] [place] GLOMERULAR FILTRATION RATE ML/MIN/1.73 SQ M.PREDICTED 46.3 mL/min/1.73m*2 Low >60.0 [facility] Comment on above: Result Comment: Calc ulation based on the Chronic Kidney Disease Epidemiology Collaboration (CKD-EPI) equation refit without adjustment for race Performed By: #### L AB15 ####[employer] Installer: NIEVES RUIZ ([id number])[facility] ([facility])[address] [place] [address] [place] Glucose [Mass/Vol] 278 mg/dL High 82-115 [facility] Comment on above: Performed By: #### L AB15 ####[employer] Installer: NIEVES RUIZ ([id number])[facility] [place] [address] Potassium [Moles/Vol] 4.5 mmol/L Normal 3.5-5.1 [facility] Comment on above: Result Comment: TCPo tential interference from hemolysis Performed By: #### L AB15 ####[employer] Installer: NIEVES RUIZ ([id number])[facility] ([facility])[address] [place] [address] Sodium [Moles/Vol] 133 mmol/L Low 136-145 [facility] Comment on above: Performed By: #### L AB15 ####[employer] Installer: NIEVES RUIZ ([id number])[facility])[address] [place] [address] Urea nitrogen [Mass/Vol] 31 mg/dL High 9-23 [facility] Comment on above: Performed By: #### L AB15 ####[employer] Installer: NIEVES RUIZ ([id number])[facility] ([facility])[address] [place] [address] Anion gap [Moles/Vol] 13 mmol/L Normal 3-13 [facility] Comment on above: Performed By: #### L [id number], [id number], VIN952, LAB15, CAW318 ####[employer] Installer: NIEVES RUIZ ([id number])[facility] ([facility])[address] [place] [address] Calcium [Mass/Vol] 8.9 mg/dL Normal 8.8-10.0 [facility] Comment on above: Performed By: #### L [id number], BBL773, KDC620, LAB15, PFV241 ####[employer] Installer: NIEVES RUIZ ([id number])[facility] ([facility])[address] [place] [address] [place] Chloride [Moles/Vol] 100 mmol/L Normal 98-107 [facility] Comment on above: Performed By: #### L [id number], EBD699, QMH217, LAB15, PRU225 ####[employer] Installer: NIEVES RUIZ ([id number])[facility])[address] [place] [address] CO2 [Moles/Vol] 20 mmol/L Low 23-31 [facility] Comment on above: Performed By: #### L [id number], FVU735, YKN152, LAB15, GJL962 ####[employer] Installer: NIEVES RUIZ ([id number])[facility])[address] [place] [address] Creatinine [Mass/Vol] 1.38 mg/dL High 0.57-1.11 [facility] Comment on above: Performed By: #### L [id number], SIW512, QQP248, LAB15, TOD582 ####[employer] Installer: NIEVES RUIZ ([id number])[facility])[address] [place] [address] GLOMERULAR FILTRATION RATE ML/MIN/1.73 SQ M.PREDICTED 41.5 mL/min/1.73m*2 Low >60.0 [facility] Comment on above: Result Comment: Calc ulation based on the Chronic Kidney Disease Epidemiology Collaboration (CKD-EPI) equation refit without adjustment for race Performed By: #### L [id number], GEU038, YOM855, LAB15, PNF348 ####[employer] Installer: NIEVES RUIZ ([id number])[facility])[address] [place] [address] Glucose [Mass/Vol] 255 mg/dL High 82-115 [facility] Comment on above: Performed By: #### L GC2775, RKU338, RFQ729, LAB15, HEH341 ####[employer] Installer: NIEVES RUIZ ([id number])[facility])[address] [place] [address] Potassium [Moles/Vol] 4.1 mmol/L Normal 3.5-5.1 [facility] Comment on above: Result Comment: TCPo tential interference from hemolysis Performed By: #### L VI3556, KDW139, UQC657, LAB15, WOH455 ####[employer] Installer: NIEVES RUIZ ([id number])[facility])[address] [place] [address] Sodium [Moles/Vol] 133 mmol/L Low 136-145 [facility] Comment on above: Performed By: #### L [id number], RVR557, VFS058, LAB15, ZEH122 ####[employer] Installer: NIEVES RUIZ ([id number])[facility] ([facility])[address] [place] [address] Urea nitrogen [Mass/Vol] 31 mg/dL High 9-23 [facility] Comment on above: Performed By: #### L [id number], TKK403, WWD331, LAB15, DJS786 ####[employer] Installer: NIEVES RUIZ ([id number])[facility] ([facility])[address] [place] [address] BETA HYDROXYBUTYRATEon 11-02 BETA HYDROXYBUTYRATE 24.9 mg/dL High <=2.8 [facility] Comment on above: Performed By: #### L [id number], JKW965, NMH833, LAB15, TNT334 ####[employer] Installer: NIEVES RUIZ ([id number])[facility] ([facility])[address] [place] [address] Basic metabolic 1998 panelon 11-02-2024 Anion gap [Moles/Vol] 12 mmol/L 3 - 13 mmol/L [facility] Calcium [Mass/Vol] 8.9 mg/dL 8.8 - 10. 0 mg/dL [facility] Chloride [Moles/Vol] 102 mmol/L 98 - 10 7 mmol/L [facility] CO2 [Moles/Vol] 19 mmol/L Low 23 - 31 mmol/L [facility] Creatinine [Mass/Vol] 1.26 mg/dL High 0.57 - 1.11 mg/dL [facility] GFR/1.73 sq M.predicted (S/P/Bld) [Vol rate/Area] 46.3 mL/min Low - PINF [facility] Comment on above: Calculation based on the Chronic Kidney Disease Epidemiology Collaboration (CKD-EPI) equation refit without adjustment for race Glucose [Mass/Vol] 278 mg/dL High 82 - 115 mg/dL [facility] Interpretation and review of laboratory results Abnormal [facility] Potassium [Moles/Vol] 4.5 mmol/L 3.5 - 5.1 mmol/L [facility] Comment on above: TC Potential interference from hemolysis Sodium [Moles/Vol] 133 mmol/L Low 136 - 145 mmol/L [facility] Urea nitrogen [Mass/Vol] 31 mg/dL High 9 - 23 mg/dL [facility] Anion gap [Moles/Vol] 13 mmol/L 3 - 13 mmol/L [facility] Calcium [Mass/Vol] 8.9 mg/dL 8.8 - 10. 0 mg/dL [facility] Chloride [Moles/Vol] 100 mmol/L 98 - 10 7 mmol/L [facility] CO2 [Moles/Vol] 20 mmol/L Low 23 - 31 mmol/L [facility] Creatinine [Mass/Vol] 1.38 mg/dL High 0.57 - 1.11 mg/dL [facility] GFR/1.73 sq M.predicted (S/P/Bld) [Vol rate/Area] 41.5 mL/min Low - PINF [facility] Comment on above: Calculation based on the Chronic Kidney Disease Epidemiology Collaboration (CKD-EPI) equation refit without adjustment for race Glucose [Mass/Vol] 255 mg/dL High 82 - 115 mg/dL [facility] Potassium [Moles/Vol] 4.1 mmol/L 3.5 - 5.1 mmol/L [facility] Comment on above: TC Potential interference from hemolysis Sodium [Moles/Vol] 133 mmol/L Low 136 - 145 mmol/L [facility] Urea nitrogen [Mass/Vol] 31 mg/dL High 9 - 23 mg/dL [facility] CBC W Auto Differential pane l (Bld)Ordered By: Susanna Veronica on 11-02-2024 Erythrocyte distribution width (RBC) [Ratio] 13.4 % 11.5 - 15.0 % [facility] Hematocrit (Bld) [Volume fraction] 36.2 % 35.0 - 47.0 % [facility] Hemoglobin (Bld) [Mass/Vol] 12.5 g/dL 11.7 - 16.0 g/dL [facility] Interpretation and review of laboratory results Normal [facility] MCH (RBC) [Entitic mass] 28.9 pg 26. 0 - 34.0 pg [facility] MCHC (RBC) [Mass/Vol] 34.5 % 30.5 - 36.0 % [facility] MCV (RBC) [Entitic vol] 83.6 fL 77.0 - 99.0 fL [facility] Platelet mean volume (Bld) [Entitic vol] 12.4 fL 9.0 - 12.7 fL [facility] Platelets (Bld) [#/Vol] 169 10*3/uL 140 - 440 10*3/uL [facility] RBC (Bld) [#/Vol] 4.33 10*6/uL 3.80 - 5.2 0 10*6/uL [facility] WBC (Bld) [#/Vol] 9.5 10*3/uL 3.6 - 10.7 10*3/uL [facility] CBC WITH AUTO DIFFERENTIALon 11-02-2024 Erythrocyte distribution width (RBC) [Ratio] 13.4 % Normal 11.5-15.0 [facility] Comment on above: Performed By: #### L [id number], [id number] ####[employer] Installer: NIEVES RUIZ ([id number])[address] Hematocrit (Bld) [Volume fraction] 36.2 % Normal 35.0-47.0 [facility] Comment on above: Performed By: #### L [id number], [id number] ####[employer] Installer: NIEVES [id number])[address] Hemoglobin (Bld) [Mass/Vol] 12.5 g/dL Normal 11.7-16.0 [facility] Comment on above: Performed By: #### L [id number], [id number] ####[employer] Installer: NIEVES RUIZ ([id number])[facility])[address] [place] [address] MCH (RBC) [Entitic mass] 28.9 pg Normal 26.0-34.0 [facility] Comment on above: Performed By: #### L [id number], [id number] ####[employer] Installer: NIEVES [id number])[address] MCHC 34.5 % Normal 30.5-36.0 [facility] Comment on above: Performed By: #### L [id number], [id number] ####[employer] Installer: NIEVES RUIZ ([id number])[facility] ([facility])[address] [place] [address] MCV (RBC) [Entitic vol] 83.6 fL Normal 77.0-99.0 [facility] Comment on above: Performed By: #### L [id number], [id number] ####[employer] Installer: NIEVES RUIZ ([id number])[facility] ([facility])[address] [place] [address] Platelet mean volume (Bld) [Entitic vol] 12.4 fL Normal 9.0-12.7 [facility] Comment on above: Performed By: #### L [id number], [id number] ####[employer] Installer: NIEVES RUIZ ([id number])[facility] ([facility])[address] [place] [address] Platelets (Bld) [#/Vol] 169 10*3/uL Normal 140-440 [facility] Comment on above: Performed By: #### L [id number], [id number] ####[employer] Installer: NIEVES RUIZ ([id number])[facility] ([facility])[address] [place] [address] RBC (Bld) [#/Vol] 4.33 10*6/uL Normal 3.80-5.20 [facility] Comment on above: Performed By: #### L [id number], [id number] ####[employer] Installer: NIEVES RUIZ ([id number])[facility])[address] [place] [address] WBC (Bld) [#/Vol] 9.5 10*3/uL Normal 3.6-10.7 [facility] Comment on above: Performed By: #### L [id number], [id number] ####[employer] Installer: NIEVES RUIZ ([id number])[facility])[address] [place] [address] Consulton 11-02-2024 Consult Normal [facility] ECG 12-LEADon 11-02-2024 ECG 12-LEAD IMPRESSION: Atrial fibrillation Left anterior fascicular block LVH with secondary repolarization abnormality Anterior Q waves, possibly due to LVH Electronically Signed On 11-02-2024 08:32:22 EDT by Jose Martin Faustin [facility] ECG 12-LEAD IMPRESSION: Atrial fibrillation Left anterior fascicular block LVH with secondary repolarization abnormality Anterior Q waves, possibly due to LVH Electronically Signed On 11-02-2024 08:29:48 EDT by Jose Martin Faustin [facility] ECG 12-LEAD IMPRESSION: Atrial fibrillation Left anterior fascicular block LVH with secondary repolarization abnormality Anterior Q waves, possibly due to LVH Electronically Signed On 11-02-2024 07:24:05 EDT by Cameron Rodriguez Normal [facility] ED Nursing Noteon 11-02-2024 ED Nursing Note Patient awake and alert, IV site intact in the right arm infusing heparin at 9.6units/kg/hr and NS at 75ml/hr. Patient's IV in the LAC removed no longer flushing. Normal [facility] ED Nursing Note Pt to ultrasound Normal [facility] ED Nursing Note Next APTT to be draw n at 1013am. Normal [facility] ED Nursing Note All meds still being verified by pharmacy Normal [facility] ED Nursing Note Dr. Darby has been notified of pt's HR of 130s then will drop to >100 after few seconds via secure chat [facility] HEMOGLOBIN A1Con 11-02-2024 Glucose [Mass/Vol] 324 mg/dL Normal [facility] Comment on above: Result Comment: ORDE R COMMENTS:HbA1c values of 5.7-6.4 percent indicate an increased risk for developing diabetes mellitus. HbA1c values greater than or equal to 6.5 percent are diagnostic of diabetes mellitus. For diagnosis of diabetes in individuals without unequivocal hyperglycemia, results should be confirmed by repeat testing. Performed By: #### L AB90 ####[employer] Installer: NIEVES RUIZ ([id number])[facility] ([facility])[address] HEMOGLOBIN A1C 12.9 %HbA1C High <5.7 [facility] Comment on above: Result Comment: Norm al less than 5.7%Prediabetes 5.7% to 6.4%Diabetes 6.5% or higher--HgbA1C levels may not be accurate in patients who have renal disease, received recent blood transfusions, are anemic, or who have dyshemoglobinemia. Performed By: #### L AB90 ####[employer] Installer: NIEVES RUIZ ([id number])[facility] ([facility])[address] Laboratory - Chemistry and C hemistry - challengeon 11-02-2024 Glucose [Mass/Vol] 231 mg/dL High 70 - 100 mg/dL [facility] Glucose [Mass/Vol] 239 mg/dL High 70 - 100 mg/dL [facility] Glucose [Mass/Vol] 298 mg/dL High 70 - 100 mg/dL [facility] Glucose [Mass/Vol] 212 mg/dL High 70 - 100 mg/dL [facility] Average glucose Estimated from glycated hemoglobin (Bld) [Mass/Vol] 324 mg/dL [facility] Glucose [Mass/Vol] 319 mg/dL High 70 - 100 mg/dL [facility] Ammonia (P) [Moles/Vol] 31 umol/L 18 - 72 umol/L [facility] Comment on above: TC Hemolyzed samples should not be used. TSH Qn 3.03 m[IU]/L [facility] Beta hydroxybutyrate [Mass/Vol] 24.9 mg/dL High NINF - 2.8 mg/dL [facility] Magnesium [Mass/Vol] 1.8 mg/dL 1.6 - 2 .6 mg/dL [facility] Laboratory - Drug toxicology on 11-02-2024 Amphetamines Screen method >1000 ng/mL Ql (U) Negative [facility] Barbiturates Screen method >200 ng/mL Ql (U) Negative [facility] Benzodiazepines Ql (U) Negative [facility] Methadone Screen Ql (U) Negative [facility] Opiates Screen Ql (U) Negative [facility] oxyCODONE Ql (U) Negative [facility] Phencyclidine Ql (U) Negative [facility] - Hematology and Cell countson 11-02-2024 HbA1c (Bld) [Mass fraction] 12.9 % [facility] Comment on above: Normal less than 5.7 % Prediabetes 5.7% to 6.4% Diabetes 6.5% or higher --HgbA1C levels may not be accurate in patients who have renal disease, received recent blood transfusions, are anemic, or who have dyshemoglobinemia. Band form neutrophils (Bld) [#/Vol] 0.7 10*3/uL High NINF - 0.0 10*3/uL [facility] Band form neutrophils/100 WBC (Bld) 7 % High NINF - 0 % [facility] Eosinophils (Bld) [#/Vol] 0.1 10*3/uL 0. 0 - 0.5 10*3/uL [facility] Eosinophils/100 WBC (Bld) 1 % 0 - 6 % [facility] Lymphocytes (Bld) [#/Vol] 0.8 10*3/uL Low 1. 0 - 4.3 10*3/uL [facility] Lymphocytes/100 WBC (Bld) 8 % Low 15 - 45 % [facility] Metamyelocytes (Bld) [#/Vol] 0.1 10*3/uL High NINF - 0.0 10*3/uL [facility] Metamyelocytes/100 WBC (Bld) 1 % High [facility] Monocytes (Bld) [#/Vol] 0.4 10*3/uL 0.0 - 0.9 10*3/uL [facility] Monocytes/100 WBC (Bld) 4 % Low 5 - 13 % [facility] Neutrophils (Bld) [#/Vol] 8.2 10*3/uL High 1. 8 - 7.5 10*3/uL [facility] Polychromasia LM Ql (Bld) Slight Abnormal (none) [facility] RBC morphology finding Nom (Bld) abnormal [facility] Segmented neutrophils/100 WBC (Bld) 79 % 38 - 82 % [facility] MAGNESIUMon 11-02-2024 Magnesium [Mass/Vol] 1.8 mg/dL Normal 1.6-2.6 [facility] Comment on above: Result Comment: SUNG Bryan COMMENTS:Higher values can be expected in females during menses. Performed By: #### L [id number], ZAF770, ZHS247, LAB15, CAD412 ####[employer] Installer: NIEVES RUIZ ([id number])[facility] ([facility])[address] [place] [address] MANUAL DIFFERENTIAL (CELLAVI AILYN)on 11-02-2024 BAND NEUTROPHILS TOTAL PER COUNTED LEUKOCYTES BY MANUAL COUNT 7 Normal [facility] Comment on above: Performed By: #### L [id number], [id number] ####[employer] Installer: NIEVES RUIZ ([id number])[facility] ([facility])[address] [place] [address] BANDS (10*3/UL) IN BLOOD-CELLAVISION 0.7 10*3/uL High <=0.0 [facility] Comment on above: Performed By: #### L [id number], [id number] ####[employer] Installer: NIEVES RUIZ ([id number])[facility] ([facility])[address] [place] [address] [place] BASOPHILS TOTAL PER COUNTED LEUKOCYTES BY MANUAL COUNT Normal [facility] Comment on above: Performed By: #### L [id number], [id number] ####[employer] Installer: NIEVES RUIZ ([id number])[facility])[address] [place] [address] BLASTS TOTAL PER COUNTED LEUKOCYTES BY MANUAL COUNT Normal [facility] Comment on above: Performed By: #### L [id number], [id number] ####[employer] Installer: NIEVES RUIZ ([id number])[facility])[address] [place] [address] EOSINOPHILS (10*3/UL) IN BLOOD-CELLAVISION 0.1 10*3/uL Normal 0.0-0.5 [facility] Comment on above: Performed By: #### L [id number], [id number] ####[employer] Installer: NIEVES RUIZ ([id number])[facility])[address] [place] [address] [place] EOSINOPHILS TOTAL PER COUNTED LEUKOCYTES BY MANUAL COUNT 1 Normal 0-1 [facility] Comment on above: Performed By: #### L [id number], [id number] ####[employer] Installer: NIEVES RUIZ ([id number])[facility])[address] [place] [address] [place] EOSINOPHILS/100 LEUKOCYTES IN BLOOD-CELLAVISION 1 % Normal 0-6 [facility] Comment on above: Performed By: #### L [id number], [id number] ####[employer] Installer: NIEVES RUIZ ([id number])[facility] ([facility])[address] [place] [address] [place] LYMPHOCYTES (10*3/UL) IN BLOOD-CELLAVISION 0.8 10*3/uL Low 1.0-4.3 [facility] Comment on above: Performed By: #### L [id number], [id number] ####[employer] Installer: NEIVES RUIZ ([id number])[facility] ([facility])[address] [place] [address] [place] LYMPHOCYTES TOTAL PER COUNTED LEUKOCYTES BY MANUAL COUNT 8 Normal [facility] Comment on above: Performed By: #### L [id number], [id number] ####[employer] Installer: NIEVES RUIZ ([id number])[facility] ([facility])[address] [place] [address] [place] LYMPHOCYTES/100 LEUKOCYTES IN BLOOD-CELLAVISION 8 % Low 15-45 [facility] Comment on above: Performed By: #### L [id number], [id number] ####[employer] Installer: NIEVES RUZI ([id number])[facility] ([facility])[address] [place] [address] [place] METAMYELOCYTES (10*3/UL) IN BLOOD-CELLAVISION 0.1 10*3/uL High <=0.0 [facility] Comment on above: Performed By: #### L [id number], [id number] ####[employer] Installer: NIEVES RUIZ ([id number])[facility] ([facility])[address] [place] [address] [place] METAMYELOCYTES TOTAL PER COUNTED LEUKOCYTES BY MANUAL COUNT 1 Normal [facility] Comment on above: Performed By: #### L [id number], [id number] ####[employer] Installer: NIEVES RUIZ ([id number])[facility] [place])[address] [place] [address] [place] METAMYELOCYTES/100 LEUKOCYTES IN BLOOD-CELLAVISION 1 % High <=0 [facility] Comment on above: Performed By: #### L [id number], [id number] ####[employer] Installer: NIEVES RUIZ ([id number])[facility] [place])[address] [place] [address] MONOCYTES (10*3/UL) IN BLOOD-CELLAVISION 0.4 10*3/uL Normal 0.0-0.9 [facility] Comment on above: Performed By: #### L [id number], [id number] ####[employer] Installer: NIEVES RUIZ ([id number])[facility] [place])[address] [place] [address] MONOCYTES TOTAL PER COUNTED LEUKOCYTES BY MANUAL COUNT 4 Normal [facility] Comment on above: Performed By: #### L [id number], [id number] ####[employer] Installer: NIEVES RUIZ ([id number])[facility] [place])[address] [place] [address] [place] MONOCYTES/100 LEUKOCYTES IN BLOOD-DANY 4 % Low 5-13 [facility] Comment on above: Performed By: #### L [id number], [id number] ####[employer] Installer: NEIVES RUIZ ([id number])[facility])[address] [place] [address] MYELOCYTES COUNTED BY MANUAL COUNT Normal [facility] Comment on above: Performed By: #### L [id number], [id number] ####[employer] Installer: NIEVES RUIZ ([id number])[facility])[address] [place] [address] NEUTROPHILS BAND FORM/100 LEUKOCYTES IN BLOOD-CELLAVISI 7 % High <=0 [facility] Comment on above: Performed By: #### L [id number], [id number] ####[employer] Installer: NIEVES [id number])[facility] ([facility])[address] [place] [address] [place] NEUTROPHILS TOTAL PER COUNTED LEUKOCYTES BY MANUAL COUNT 80 Normal [facility] Comment on above: Performed By: #### L [id number], [id number] ####[employer] Installer: NIEVES RUIZ ([id number])[facility] ([facility])[address] [place] [address] POLYCHROMASIA IN BLOOD BY LIGHT MICROSCOPY Slight Abnormal (none) [facility] Comment on above: Performed By: #### L [id number], [id number] ####[employer] Installer: NIEVES RUIZ ([id number])[facility])[address] [place] [address] [place] PROMYELOCYTES TOTAL PER COUNTED LEUKOCYTES BY MANUAL COUNT Normal [facility] Comment on above: Performed By: #### L [id number], [id number] ####[employer] Installer: NIEVES RUIZ ([id number])[facility])[address] [place] [address] RBC MORPHOLOGY IN BLOOD abnormal Normal S [facility] Comment on above: Performed By: #### L [id number], [id number] ####[employer] Installer: NIEVES RUIZ ([id number])[facility])[address] [place] [address] [place] SEGMENTED NEUTROPHILS (10*3/UL) IN BLOOD-CELLAVISION 8.2 10*3/uL High 1.8-7.5 [facility] Comment on above: Performed By: #### L [id number], [id number] ####[employer] Installer: NIEVES RUIZ ([id number])[facility])[address] [place] [address] [place] SEGMENTED NEUTROPHILS/100 LEUKOCYTES-CE 79 % Normal 38-82 [facility] Comment on above: Performed By: #### L [id number], [id number] ####[employer] Installer: NIEVES RUIZ ([id number])[facility])[address] [place] [address] [place] UNCLASSIFIED CELLS TOTAL PER COUNTED LEUKOCYTES BY MANUAL COUNT [facility] Comment on above: Performed By: #### L [id number], [id number] ####[employer] Installer: NIEVES RUIZ ([id number])[facility])[address] [place] [address] VARIANT LYMPHOCYTES TOTAL PER COUNTED LEUKOCYTES BY MANUAL COUNT Normal [facility] Comment on above: Performed By: #### L [id number], [id number] ####[employer] Installer: NIEVES RUIZ ([id number])[facility])[address] [place] [address] Magnesium [Mass/Vol]on 11-02 Higher values can be expected in females during menses. [facility] No Panel Informationon 11-02 Interpretation and review of laboratory results Abnormal [facility] Performed by: [facility], [address] [place] [address] CLIA ID: [id number] [facility] Interpretation and review of laboratory results Abnormal [facility] Performed by: [facility], [address] [place] [address] CLIA ID: [id number] [facility] Interpretation and review of laboratory results Abnormal [facility] Performed by: [facility], [address] [place] [address] CLIA ID: [id number] [facility] Interpretation and review of laboratory results Abnormal [facility] Performed by: [facility], [address] [place] [address] CLIA ID: [id number] [facility] Interpretation and review of laboratory results Abnormal [facility] HbA1c values of 5.7-6.4 percent indicate an increased risk for developing diabetes mellitus. HbA1c values greater than or equal to 6.5 percent are diagnostic of diabetes mellitus. For diagnosis of diabetes in individuals without unequivocal hyperglycemia, results should be confirmed by repeat testing. [facility] P [place] 0 degrees [facility] [place] Interval 0 ms [facility] QRS [place] -49 degrees [facility] QRSD Interval 110 ms [facility] QT Interval 365 ms [facility] QTC Interval 463 ms [facility] T Wave [place] 98 degrees [facility] Atrial fibrillation Left anterior [...] 11-02-2024 08:32:22 EDT by Jose Martin Faustin [facility] Atrial fibrillation Left anterior fascicular block [...] 11-02-2024 08:29:48 EDT by Jose Martin Francoisowell [facility] Interpretation and review of laboratory results Abnormal [facility] Performed by: [facility], [address] [place] [address] CLIA ID: [id number] [facility] Atrial fibrillation Left anterior fascicular block LVH with secondary repolarization abnormality Anterior Q waves, possibly due to LVH Electronically Signed On 11-02-2024 07:24:05 EDT by Cameron Rey MD - 11/02/2024 IMPRESSION: Atrial fibrillation Left anterior fascicular block LVH with secondary repolarization abnormality Anterior Q waves, possibly due to LVH Electronically Signed On 11-02-2024 07:24:05 EDT by Cameron Doradohta [facility] Interpretation and review of laboratory results Normal [facility] Heal [facility] Atypical Lymphocytes Manual [facility] Bands Manual 7 [facility] Basophils Manual [facility] Blasts Manual [facility] Eosinophils Manual 1 0 - 1 [facility] Interpretation and review of laboratory results Abnormal [facility] Heal th Lymphocytes Manual 8 [facility] Metamyelocytes Manual 1 [facility] Monocytes Manual 4 [facility] He alth Myelocytes Manual [facility] ealth Neutrophils Manual 80 [facility] Promyelocytes Manual [facility] Unclassified Cells, Manual [facility] COCAINE METAB. SCREEN Negative Sum [facility] FENTANYL SCREEN, UR QUAL Negative [facility] The expected value for [...] is needed, request confirmation under separate order. [facility] Interpretation and review of laboratory results Normal [facility] Interpretation and review of laboratory results Abnormal [facility] 4h Troponin HS (Serial 3rd Troponin) 128 ng/L High NINF - 14 ng/L [facility] Comment on above: Rising or falling tr oponin delta below 2 ng/L as compared to 2h troponin value suggests that acute cardiac injury is unlikely. Interpretation and review of laboratory results Abnormal [facility] No Panel InformationOrdered By: Jose Martin Faustin on 11-02-2024 P [place] 0 degrees [facility] Fwd: Power Work Phone: [place] Interval 0 ms [facility] Fwd: Power Work Phone: QRS [place] -49 degrees [facility] Fwd: Power Work Phone: QRSD Interval 102 ms [facility] h Work Phone: QT Interval 331 ms [facility] Fwd: Power Work Phone: QTC Interval 460 ms [facility] Fwd: Power Work Phone: T Wave [place] 113 degrees [facility] Fwd: Power Work Phone: [facility] Fwd: Power Work Phone: No Panel InformationOrdered By: Cameron Rodriguez on 11-02-2024 P [place] 0 degrees [facility] Fwd: Power Work Phone: [place] Interval 0 ms [facility] Work Phone: QRS [place] -50 degrees [facility] Fwd: Power Work Phone: QRSD Interval 94 ms [facility] Work Phone: QT Interval 297 ms [facility] Health Work Phone: QTC Interval 453 ms [facility] Health Work Phone: T Wave [place] 88 degrees [facility] Fwd: Power Work Phone: [facility] Fwd: Power Work Phone: Nursing Noteon 11-02-2024 Nursing Note Normal [facility] PHOSPHORUSon 11-02-2024 Phosphate [Mass/Vol] 2.8 mg/dL Normal 2.3-4.7 [facility] Comment on above: Performed By: #### L [id number], [id number], [id number], LAB15, [id number] ####[employer] Installer: NIEVES RUIZ ([id number])[facility] ([facility])[address] [place] [address] [place] Phosphate [Moles/Vol]on 10-21 Phosphate [Mass/Vol] 2.8 mg/dL 2.3 - 4 .7 mg/dL [facility] Progress Noteon 11-02-2024 Progress Note Normal [facility] Progress Note Normal [facility] THYROID STIMULATING HORMONEo n 11-02-2024 THYROID STIMULATING HORMONE 3.03 uIU/mL Normal 0.35-4.94 [facility] Comment on above: Performed By: #### L [id number], [id number], [id number], LAB15, [id number] ####[employer] Installer: NIEVES RUIZ ([id number])[facility])[address] [place] [address] [place] TSH Qnon 11-02-2024 Interpretation and review of laboratory results Normal [facility] US Kidneyon 11-02-2024 Impression: 1. Mildly increased bilateral renal echotexture; correlate with chronic medical renal disease. 2. Tiny, nonspecific amount of bilateral perinephric free fluid. Report Dictated on Electronically Signed By: Ricky Barfield MD Electronically Signed Date/Time: 11/02/2024 7:57 AM EDT [facility] Patient Name: DAMEON POTTER [...] no gross evidence of bladder wall thickening. [facility] Ricky Barfield MD - 11/02/2024 Patient [...] Electronically Signed Date/Time: 11/02/2024 7:57 AM EDT [facility] Fwd: Power Radiology Study observation (narrative) [facility] US KidneyOrdered By: Ricky perry on 11-02-2024 CORD:USE [facility] Work Phone: US RENAL COMPLETEon 11-03-19 25 US RENAL COMPLETE Normal [facility] Vital signson 11-02-2024 Heart rate 97 /min bpm [facility] Fwd: Power Vital signsOrdered By: Jose Martin Faustin on 11-02-2024 Heart rate 116 /min bpm [employer] Player Phone: Vital signsOrdered By: Concepcion Rodriguez on 11-02-2024 Heart rate 139 /min bpm [employer] Phone: aPTT Coag (Bld) [Time]on aPTT Coag (PPP) [Time] 21.1 s 20.0 - 30.5 s [facility] Fwd: Power Interpretation and review of laboratory results Normal [facility] NOTE: The therapeuti c time for Heparin anticoagulation, based on Xa activity inhibition, is an APTT of 46-80 seconds. [facility] 36on 11-01-2024 36 Normal [facility] BASIC METABOLIC PANELon 10-21 Anion gap [Moles/Vol] 15 mmol/L High 3-13 [facility] Comment on above: Performed By: #### L [id number], [id number], LAB15 ####[employer] Installer: NIEVES RUIZ ([id number])[facility] ([address] Calcium [Mass/Vol] 8.9 mg/dL Normal 8.8-10.0 [facility] Comment on above: Result Comment: TCPo tential interference from lipemia Performed By: #### L [id number], [id number], LAB15 ####[employer] Installer: NIEVES RUIZ ([id number])[facility] ([facility])[address] [place] [address] [place] Chloride [Moles/Vol] 102 mmol/L Normal 98-107 [facility] Comment on above: Performed By: #### L [id number], [id number], LAB15 ####[employer] Installer: NIEVES RUIZ ([id number])[facility] ([facility])[address] [place] [address] CO2 [Moles/Vol] 17 mmol/L Low 23-31 [facility] Comment on above: Performed By: #### Wayne RAY6, [id number], LAB15 ####[employer] Installer: NIEVES RUIZ ([id number])[facility] ([facility])[address] [place] [address] Creatinine [Mass/Vol] 1.43 mg/dL High 0.57-1.11 [facility] Comment on above: Result Comment: TCPo tential interference from lipemia Performed By: #### Wayne RAY6, [id number], LAB15 ####[employer] Installer: NIEVES RUIZ ([id number])[facility] ([facility])[address] [place] [address] [place] GLOMERULAR FILTRATION RATE ML/MIN/1.73 SQ M.PREDICTED 39.8 mL/min/1.73m*2 Low >60.0 [facility] Comment on above: Result Comment: Calc ulation based on the Chronic Kidney Disease Epidemiology Collaboration (CKD-EPI) equation refit without adjustment for race Performed By: #### L [id number], [id number], LAB15 ####[employer] Installer: NIEVES RUIZ ([id number])[facility] ([facility])[address] [place] [address] [place] Glucose [Mass/Vol] 276 mg/dL High 82-115 [facility] Comment on above: Performed By: #### L [id number], [id number], LAB15 ####[employer] Installer: NIEVES RUIZ ([id number])[facility])[address] [place] [address] Potassium [Moles/Vol] 3.7 mmol/L Normal 3.5-5.1 [facility] Comment on above: Performed By: #### L [id number], [id number], LAB15 ####[employer] Installer: NIEVES RUIZ ([id number])[facility] ([facility])[address] [place] [address] Sodium [Moles/Vol] 134 mmol/L Low 136-145 [facility] Comment on above: Performed By: #### L [id number], [id number], LAB15 ####[employer] Installer: NIEVES RUIZ ([id number])[facility])[address] [place] [address] Urea nitrogen [Mass/Vol] 31 mg/dL High 9-23 [facility] Comment on above: Performed By: #### L [id number], [id number], LAB15 ####[employer] Installer: NIEVES RUIZ ([id number])[facility])[address] [place] [address] BETA HYDROXYBUTYRATEon 11-01 BETA HYDROXYBUTYRATE 21.0 mg/dL High <=2.8 [facility] Comment on above: Performed By: #### L [id number], [id number], LAB15 ####[employer] Installer: NIEVES RUIZ ([id number])[facility])[address] [place] [address] BETA HYDROXYBUTYRATE 50.7 mg/dL High <=2.8 [facility] Comment on above: Performed By: #### L AB113, [id number], LAB99, MEB657, TDM504, [id number], LAB17, [id number] ####[employer] Installer: NIEVES RUIZ ([id number])[facility])[address] [place] [address] BLOOD GAS, VENOUSon 11-02-19 25 AMOUNT OF OXYGEN Normal [facility] Comment on above: Result Comment: SUNG Bryan COMMENTS:Assessment of oxygenation is best done with an arterial blood gas determination. Reference ranges for pO2, bicarbonate, and base excess are for mixed venous blood. Specimens drawn from a peripheral vein will often have higher values. Performed By: #### L AB79 ####[employer] Installer: NIEVES RUIZ ([id number])[facility])[address] [place] [address] Base excess Calc (BldV) [Moles/Vol] -6.1000 mmol/L Low -3.0-3.0 [facility] Comment on above: Performed By: #### L AB79 ####[employer] Installer: NIEVES RUIZ ([id number])[facility])[address] [place] [address] CO2 [Moles/Vol] 18.0 mmol/L Low 24.0-28.0 [facility] Comment on above: Performed By: #### L AB79 ####[employer] Installer: NIEVES RUIZ ([id number])[facility])[address] [place] [address] HCO3 (Bld) [Moles/Vol] 17.2 mmol/L Low 23.0-27.0 [facility] Comment on above: Performed By: #### L AB79 ####[employer] Installer: NIEVES RUIZ ([id number])[facility])[address] [place] [address] Hemoglobin (Bld) [Mass/Vol] 14.2 g/dL Normal Screen only [facility] Comment on above: Performed By: #### L AB79 ####[employer] Installer: NIEVES RUIZ ([id number])[facility])[address] [place] [address] OXYGEN (MM HG) IN VENOUS BLOOD 42.3 mm Hg Normal [facility] Comment on above: Performed By: #### L AB79 ####[employer] Installer: NIEVES RUIZ ([id number])[facility])[address] [place] [address] OXYGEN SATURATION (%) IN VENOUS BLOOD 75.8 % Normal [facility] Comment on above: Performed By: #### L AB79 ####[employer] Installer: NIEVES RUIZ ([id number])[facility] ([facility])[address] [place] [address] PCO2, WAQAR 28.2 mm Hg Low 40.0-55.0 [facility] Comment on above: Performed By: #### L [id number] ####[employer] Installer: NIEVES RUIZ ([id number])[facility] ([facility])[address] [place] [address] PH VENOUS 7.402 Normal 7.330-7.430 [facility] Comment on above: Performed By: #### L AB79 ####[employer] Installer: NIEVES RUIZ ([id number])[facility] ([facility])[address] [place] [address] SOURCE OF OXYGEN None (Room Air) Normal [facility] Comment on above: Performed By: #### L AB79 ####[employer] Installer: NIEVES RUIZ ([id number])[facility] ([facility])[address] [place] [address] Basic metabolic 1998 panelOr dered By: Shi Fowler on 11-01-2024 Anion gap [Moles/Vol] 15 mmol/L High 3 - 13 mmol/L [facility] Calcium [Mass/Vol] 8.9 mg/dL 8.8 - 10. 0 mg/dL [facility] Comment on above: TC Potential interference from lipemia Chloride [Moles/Vol] 102 mmol/L 98 - 10 7 mmol/L [facility] CO2 [Moles/Vol] 17 mmol/L Low 23 - 31 mmol/L [facility] Creatinine [Mass/Vol] 1.43 mg/dL High 0.57 - 1.11 mg/dL [facility] Comment on above: TC Potential interference from lipemia GFR/1.73 sq M.predicted (S/P/Bld) [Vol rate/Area] 39.8 mL/min Low - PINF [facility] Comment on above: Calculation based on the Chronic Kidney Disease Epidemiology Collaboration (CKD-EPI) equation refit without adjustment for race Glucose [Mass/Vol] 276 mg/dL High 82 - 115 mg/dL [facility] Interpretation and review of laboratory results Abnormal [facility] Potassium [Moles/Vol] 3.7 mmol/L 3.5 - 5.1 mmol/L [facility] Sodium [Moles/Vol] 134 mmol/L Low 136 - 145 mmol/L [facility] Urea nitrogen [Mass/Vol] 31 mg/dL High 9 - 23 mg/dL [facility] CBC W Auto Differential pane l (Bld)Ordered By: Ebony Thompson on 11-01-2024 Basophils (Bld) [#/Vol] 0 10*3/uL 0.0 - 0.2 10*3/uL [facility] [facility] Basophils/100 WBC (Bld) 0.3 % 0.0 - 2.0 % [facility] Eosinophils (Bld) [#/Vol] 0 10*3/uL 0. 0 - 0.5 10*3/uL [facility] Eosinophils/100 WBC (Bld) 0.1 % 0.0 - 6.0 % [facility] Erythrocyte distribution width (RBC) [Ratio] 13.4 % 11.5 - 15.0 % [facility] Hematocrit (Bld) [Volume fraction] 39.5 % 35.0 - 47.0 % [facility] Hemoglobin (Bld) [Mass/Vol] 13.6 g/dL 11.7 - 16.0 g/dL [facility] Immature granulocytes (Bld) [#/Vol] 0.1 10*3/uL High NINF - 0.1 10*3/uL [facility] Immature granulocytes/100 WBC (Bld) 0.5 % 0.0 - 2.0 % [facility] Interpretation and review of laboratory results Abnormal [facility] Lymphocytes (Bld) [#/Vol] 0.4 10*3/uL Low 1. 0 - 4.3 10*3/uL [facility] Lymphocytes/100 WBC (Bld) 4.1 % Low 15 .0 - 45.0 % [facility] MCH (RBC) [Entitic mass] 29 pg 26. 0 - 34.0 pg [facility] MCHC (RBC) [Mass/Vol] 34.4 % 30.5 - 36.0 % [facility] MCV (RBC) [Entitic vol] 84.2 fL 77.0 - 99.0 fL [facility] Monocytes (Bld) [#/Vol] 0.7 10*3/uL 0.0 - 0.9 10*3/uL [facility] Monocytes/100 WBC (Bld) 6.7 % 5.0 - 13.0 % [facility] Neutrophils (Bld) [#/Vol] 8.9 10*3/uL High 1. 8 - 7.5 10*3/uL [facility] Neutrophils/100 WBC (Bld) 88.3 % High 38 .0 - 82.0 % [facility] Nucleated RBC/100 WBC (Bld) [Ratio] 0 % [facility] Platelet mean volume (Bld) [Entitic vol] 12.6 fL 9.0 - 12.7 fL [facility] Platelets (Bld) [#/Vol] 191 10*3/uL 140 - 440 10*3/uL [facility] RBC (Bld) [#/Vol] 4.69 10*6/uL 3.80 - 5.2 0 10*6/uL [facility] WBC (Bld) [#/Vol] 10.1 10*3/uL 3.6 - 10.7 10*3/uL [facility] CBC WITH AUTO DIFFERENTIALon 11-01-2024 Basophils (Bld) [#/Vol] 0.0 10*3/uL Normal 0.0-0.2 [facility] Comment on above: Performed By: #### L [id number] ####[employer] Installer: NIEVES [id number])[facility])[address] [place] [address] Basophils/100 WBC (Bld) 0.3 % Normal 0.0-2.0 [facility] Comment on above: Performed By: #### L [id number] ####[employer] Installer: NIEVES [id number])[facility] ([facility])[address] [place] [address] Eosinophils (Bld) [#/Vol] 0.0 10*3/uL Normal 0.0-0.5 [facility] Comment on above: Performed By: #### L [id number] ####[employer] Installer: NIEVES [id number])[facility])[address] [place] [address] Eosinophils/100 WBC (Bld) 0.1 % Normal 0.0-6.0 [facility] Comment on above: Performed By: #### L [id number] ####[employer] Installer: NIEVES RUIZ ([id number])[facility])[address] [place] [address] Erythrocyte distribution width (RBC) [Ratio] 13.4 % Normal 11.5-15.0 [facility] Comment on above: Performed By: #### L [id number] ####[employer] Installer: NIEVES RUIZ ([id number])[facility])[address] [place] [address] Hematocrit (Bld) [Volume fraction] 39.5 % Normal 35.0-47.0 [facility] Comment on above: Performed By: #### L [id number] ####[employer] Installer: NIEVES RUIZ ([id number])[facility])[address] [place] [address] Hemoglobin (Bld) [Mass/Vol] 13.6 g/dL Normal 11.7-16.0 [facility] Comment on above: Performed By: #### L [id number] ####[employer] Installer: NIEVES RUIZ ([id number])[facility])[address] [place] [address] IMMATURE GRANS % 0.5 % Normal 0.0-2.[address] [facility] Comment on above: Performed By: #### L [id number] ####[employer] Installer: NIEVES RUIZ ([id number])[facility])[address] [place] [address] IMMATURE GRANS ABSOLUTE 0.1 10*3/uL High <0.1 [facility] Comment on above: Performed By: #### L [id number] ####[employer] Installer: NIEVES RUIZ ([id number])[facility])[address] [place] [address] Lymphocytes (Bld) [#/Vol] 0.4 10*3/uL Low 1.0-4.3 [facility] Comment on above: Performed By: #### L [id number] ####[employer] Installer: NIEVES RUIZ ([id number])[facility])[address] [place] [address] Lymphocytes/100 WBC (Bld) 4.1 % Low 15.0-45.0 [facility] Comment on above: Performed By: #### L [id number] ####[employer] Installer: NIEVES RUIZ ([id number])[facility])[address] [place] [address] MCH (RBC) [Entitic mass] 29.0 pg Normal 26.0-34.0 [facility] Comment on above: Performed By: #### L [id number] ####[employer] Installer: NIEVES RUIZ ([id number])[facility])[address] [place] [address] MCHC 34.4 % Normal 30.5-36.0 [facility] Comment on above: Performed By: #### L [id number] ####[employer] Installer: NIEVES RUIZ ([id number])[facility])[address] [place] [address] MCV (RBC) [Entitic vol] 84.2 fL Normal 77.0-99.0 [facility] Comment on above: Performed By: #### L [id number] ####[employer] Installer: NIEVES RUIZ ([id number])[facility])[address] [place] [address] Monocytes (Bld) [#/Vol] 0.7 10*3/uL Normal 0.0-0.9 [facility] Comment on above: Performed By: #### L [id number] ####[employer] Installer: NIEVES RUIZ ([id number])[facility])[address] [place] [address] Monocytes/100 WBC (Bld) 6.7 % Normal 5.0-13.0 [facility] Comment on above: Performed By: #### L [id number] ####[employer] Installer: NIEVES RUIZ ([id number])[facility] ([facility])[address] [place] [address] NEUTROPHILS ABSOLUTE 8.9 10*3/uL High 1.8-7.5 [facility] Comment on above: Performed By: #### L [id number] ####[employer] Installer: NIEVES RUIZ ([id number])[facility] ([facility])[address] [place] [address] Neutrophils/100 WBC (Bld) 88.3 % High 38.0-82.0 [facility] Comment on above: Performed By: #### L [id number] ####[employer] Installer: NIEVES RUIZ ([id number])[facility] ([facility])[address] [place] [address] NRBC 0.0 /100 WBCs Normal 0.0-2.0 [facility] Comment on above: Performed By: #### L [id number] ####[employer] Installer: NIEVES RUIZ ([id number])[facility] ([facility])[address] [place] [address] Platelet mean volume (Bld) [Entitic vol] 12.6 fL Normal 9.0-12.7 [facility] Comment on above: Performed By: #### L [id number] ####[employer] Installer: NIEVES RUIZ ([id number])[facility] ([facility])[address] [place] [address] [place] Platelets (Bld) [#/Vol] 191 10*3/uL Normal 140-440 [facility] Comment on above: Performed By: #### L [id number] ####[employer] Installer: NIEVES RUIZ ([id number])[facility] ([facility])[address] [place] [address] RBC (Bld) [#/Vol] 4.69 10*6/uL Normal 3.80-5.20 [facility] Comment on above: Performed By: #### L [id number] ####[employer] Installer: NIEVES RUIZ ([id number])[facility])[address] [place] [address] WBC (Bld) [#/Vol] 10.1 10*3/uL Normal 3.6-10.7 [facility] Comment on above: Performed By: #### L [id number] ####[employer] Installer: NIEVES RUIZ ([id number])[facility])[address] [place] [address] COMPLETE URINALYSISon 2024 BACTERIA (#/HPF) IN URINE Moderate Abnormal Negative [facility] Comment on above: Performed By: #### L [id number], [id number] ####[employer] Installer: NIEVES RUIZ ([id number])[facility])[address] [place] [address] BILIRUBIN, TOTAL PRESENCE IN URINE Negative Normal Negative [facility] Comment on above: Performed By: #### L AB347, [id number] ####[employer] Installer: NIEVES RUIZ ([id number])[facility] ([facility])[address] [place] [address] Clarity (U) Turbid Abnormal Clear [facility] Comment on above: Performed By: #### L AB347, [id number] ####[employer] Installer: NIEVES RUIZ ([id number])[facility])[address] [place] [address] Color (U) Yellow Normal Lt. Yellow [facility] Comment on above: Performed By: #### L AB347, [id number] ####[employer] Installer: NIEVES RUIZ ([id number])[facility] ([facility])[address] [place] [address] GLUCOSE (MG/DL) IN URINE >1,000 Abnormal Nor mal (<70) [facility] Comment on above: Performed By: #### L AB347, [id number] ####[employer] Installer: NIEVES RUIZ ([id number])[facility] ([facility])[address] [place] [address] HEMOGLOBIN PRESENCE IN URINE 0.2 mg/dL Abnormal Negative [facility] Comment on above: Performed By: #### L AB347, [id number] ####[employer] Installer: NIEVES RUIZ ([id number])[facility])[address] [place] [address] [place] HYALINE CASTS (#/LPF) IN URINE SEDIMENT BY MICROSCOPY 3-5 Abnormal Negative [facility] Comment on above: Performed By: #### L AB347, [id number] ####[employer] Installer: NIEVES RUIZ ([id number])[facility])[address] [place] [address] Ketones Ql (U) 20 mg/dL Abnormal Negative [facility] Comment on above: Performed By: #### L AB347, [id number] ####[employer] Installer: NIEVES RUIZ ([id number])[facility] ([facility])[address] [place] [address] LEUKOCYTE ESTERASE PRESENCE IN URINE BY TEST STRIP 500 Rad/uL Abnormal Negative [facility] Comment on above: Performed By: #### L AB347, [id number] ####[employer] Installer: NIEVES RUIZ ([id number])[facility])[address] [place] [address] [place] MUCUS (#/LPF) IN URINE SEDIMENT Few Normal Negative [facility] Comment on above: Performed By: #### L AB347, [id number] ####[employer] Installer: NIEVES RUIZ ([id number])[facility] ([facility])[address] [place] [address] NITRITE PRESENCE IN URINE Negative Normal Negative [facility] Comment on above: Performed By: #### L AB347, [id number] ####[employer] Installer: NIEVES RUIZ ([id number])[facility] ([facility])[address] [place] [address] pH (U) 5.5 [pH] Normal 5.0-8.0 [facility] Comment on above: Performed By: #### L AB347, [id number] ####[employer] Installer: NIEVES RUIZ ([id number])[facility] ([facility])[address] [place] [address] [place] Protein (U) [Mass/Vol] 100 mg/dL Abnormal Negative [facility] Comment on above: Performed By: #### L AB347, [id number] ####[employer] Installer: NIEVES RUIZ ([id number])[facility] ([facility])[address] [place] [address] [place] RBC (#/HPF) IN URINE SEDIMENT 6-10 Abnormal 0-2 [facility] Comment on above: Performed By: #### L AB347, EEC912 ####[employer] Installer: NIEVES RUIZ ([id number])[facility] ([facility])[address] [place] [address] Specific gravity (U) [Rel density] 1.023 Normal 1.005-1.030 [facility] Comment on above: Performed By: #### L AB347, IYR830 ####[employer] Installer: NIEVES RUIZ ([id number])[facility] ([facility])[address] [place] [address] [place] SQUAMOUS EPITHELIAL CELLS (#/HPF) IN URINE SEDIMENT 3-5 Normal 3-5 [facility] Comment on above: Performed By: #### L AB347, [id number] ####[employer] Installer: NIEVES RUIZ ([id number])[facility] ([facility])[address] [place] [address] [place] UROBILINOGEN (MG/DL) IN URINE Normal Normal Normal (0-1) [facility] Comment on above: Performed By: #### L AB347, [id number] ####[employer] Installer: NIEVES RUIZ ([id number])[facility] ([facility])[address] [place] [address] [place] WBC (LEUKOCYTE) (#/HPF) IN URINE SEDIMENT >100 Abnormal 0-5 [facility] Comment on above: Performed By: #### L AB347, KIF756 ####[employer] Installer: NIEVES RUIZ ([id number])[facility] ([facility])[address] [place] [address] [place] WBC (LEUKOCYTE) CLUMPS (#/HPF) IN URINE SEDIMENT Rare Abnormal Negative [facility] Comment on above: Performed By: #### L AB347, XEI613 ####[employer] Installer: NIEVES RUIZ ([id number])[facility] ([facility])[address] [place] [address] YEAST (#/HPF) IN URINE Few Abnormal Negative [facility] Comment on above: Performed By: #### L AB347, [id number] ####[employer] Installer: NIEVES RUIZ ([id number])[facility])[address] [place] [address] COMPREHENSIVE METABOLIC PANE Derek 11-01-2024 Albumin [Mass/Vol] 2.5 g/dL Low 3.4-4.8 [facility] Comment on above: Performed By: #### L AB113, [id number], LAB99, OJF569, WCV563, VZU405, LAB17, [id number] ####[employer] Installer: NIEVES RUIZ ([id number])[facility] ([facility])[address] [place] [address] ALP [Catalytic activity/Vol] 99 U/L Normal 40-150 [facility] Comment on above: Performed By: #### L AB113, [id number], LAB99, EEI507, EMG516, LYK622, LAB17, [id number] ####[employer] Installer: NIEVES RUIZ ([id number])[facility] ([facility])[address] [place] [address] ALT [Catalytic activity/Vol] 9 U/L Normal <30 [facility] Comment on above: Performed By: #### L AB113, [id number], LAB99, EWM415, UGO972, MRB895, LAB17, [id number] ####[employer] Installer: NIEVES RUIZ ([id number])[facility])[address] [place] [address] Anion gap [Moles/Vol] 22 mmol/L High 3-13 [facility] Comment on above: Performed By: #### L AB113, [id number], LAB99, MGX756, XIB010, HRF852, LAB17, [id number] ####[employer] Installer: NIEVES RUIZ ([id number])[facility] ([facility])[address] [place] [address] AST [Catalytic activity/Vol] 20 U/L Normal <34 [facility] Comment on above: Performed By: #### L AB113, [id number], LAB99, GIY857, HQC353, YKY593, LAB17, [id number] ####[employer] Installer: NIEVES URIZ ([id number])[facility] ([facility])[address] [place] [address] Bilirubin [Mass/Vol] 1.3 mg/dL High <1.2 [facility] Comment on above: Performed By: #### L AB113, VOO7807, LAB99, BBB035, IIC586, SKE475, LAB17, [id number] ####[employer] Installer: NIEVES RUIZ ([id number])[facility])[address] [place] [address] Calcium [Mass/Vol] 9.5 mg/dL Normal 8.8-10.0 [facility] Comment on above: Performed By: #### L AB113, [id number], LAB99, UGB689, ZRN143, ISM535, LAB17, [id number] ####[employer] Installer: NIEVES RUIZ ([id number])[facility] ([facility])[address] [place] [address] Chloride [Moles/Vol] 95 mmol/L Low 98-107 [facility] Comment on above: Performed By: #### L AB113, [id number], LAB99, EZA056, XWK323, BFX226, LAB17, [id number] ####[employer] Installer: NIEVES RUIZ ([id number])[facility] ([facility])[address] [place] [address] [place] CO2 [Moles/Vol] 11 mmol/L Low 23-31 [facility] Comment on above: Performed By: #### L AB113, [id number], LAB99, ZHZ188, XUT461, XTY034, LAB17, [id number] ####[employer] Installer: NIEVES RUIZ ([id number])[facility] ([address] Creatinine [Mass/Vol] 1.62 mg/dL High 0.57-1.11 [facility] Comment on above: Performed By: #### L AB113, [id number], LAB99, VKV905, TLU564, OJJ442, LAB17, [id number] ####[employer] Installer: NIEVES RUIZ ([id number])[facility])[address] [place] [address] GLOMERULAR FILTRATION RATE ML/MIN/1.73 SQ M.PREDICTED 34.3 mL/min/1.73m*2 Low >60.0 [facility] Comment on above: Result Comment: Calc ulation based on the Chronic Kidney Disease Epidemiology Collaboration (CKD-EPI) equation refit without adjustment for race Performed By: #### L AB113, [id number], LAB99, JBK809, SYZ711, SMV755, LAB17, [id number] ####[employer] Installer: NIEVES RUIZ ([id number])[facility])[address] [place] [address] Glucose [Mass/Vol] 617 mg/dL Critically high 82-115 [facility] Comment on above: Performed By: #### L AB113, OQD6941, LAB99, YOH906, QPL766, ABD766, LAB17, [id number] ####[employer] Installer: NIEVES RUIZ ([id number])[facility] ([facility])[address] [place] [address] Potassium [Moles/Vol] 4.8 mmol/L Normal 3.5-5.1 [facility] Comment on above: Result Comment: [facility] potassium values may be up to 0.5 mmol/L lower than serum values. Performed By: #### L AB113, [id number], LAB99, VQR834, PMZ831, VJQ870, LAB17, [id number] ####[employer] Installer: NIEVES RUIZ ([id number])[facility] ([facility])[address] [place] [address] Protein [Mass/Vol] 7.3 g/dL Normal 6.4-8.3 [facility] Comment on above: Performed By: #### L AB113, [id number], LAB99, LTR458, VRC763, AON029, LAB17, [id number] ####[employer] Installer: NIEVES RUIZ ([id number])[facility])[address] [place] [address] Sodium [Moles/Vol] 128 mmol/L Low 136-145 [facility] Comment on above: Performed By: #### L AB113, [id number], LAB99, EYZ172, SNP191, QIG960, LAB17, [id number] ####[employer] Installer: NIEVES RUIZ ([id number])[address] Urea nitrogen [Mass/Vol] 30 mg/dL High 9-23 [facility] Comment on above: Performed By: #### L AB113, USO1187, LAB99, OIW137, LGY497, XQU689, LAB17, [id number] ####[employer] Installer: NIEVES RUIZ ([id number])[facility])[address] [place] [address] CT HEAD WO IV CONTRASTon CT HEAD WO IV CONTRAST Normal [facility] CT Head WO contraston 2024 No acute intracrania l abnormality. Diffuse cortical volume loss and chronic small vessel ischemic changes. Report Dictated on Electronically Signed By: Anastasia Spencer MD Electronically Signed Date/Time: 11/01/2024 7:51 PM [facility] Patient Name: DAMEON POTTER : 1955 [place] [id number] Exam Date/Time: 11/01/2024 19:32 Procedure: CT HEAD [...] CELLS: Unremarkable as visualized. No mastoid effusion. [facility] Anastasia Spencer M D - [...] Electronically Signed Date/Time: 11/01/2024 7:51 PM EDT [facility] Radiology Study observation (narrative) [facility] alth CT Head WO contrastOrdered B y: Anastasia Spencer on 11-01-2024 [facility] Fwd: Power Work Phone: Comprehensive metabolic 1998 panelOrdered By: Noemi Mcqueen on 11-01-2024 Albumin [Mass/Vol] 2.5 g/dL Low 3.4 - 4.8 g/dL [facility] ALP [Catalytic activity/Vol] 99 U/L 40 - 150 U/L [facility] ALT [Catalytic activity/Vol] 9 U/L NINF - 30 U/L [facility] Anion gap [Moles/Vol] 22 mmol/L High 3 - 13 mmol/L [facility] AST [Catalytic activity/Vol] 20 U/L NINF - 34 U/L [facility] Bilirubin [Mass/Vol] 1.3 mg/dL High NINF - 1.2 mg/dL [facility] Calcium [Mass/Vol] 9.5 mg/dL 8.8 - 10. 0 mg/dL [facility] Chloride [Moles/Vol] 95 mmol/L Low 98 - 10 7 mmol/L [facility] CO2 [Moles/Vol] 11 mmol/L Low 23 - 31 mmol/L [facility] Creatinine [Mass/Vol] 1.62 mg/dL High 0.57 - 1.11 mg/dL [facility] GFR/1.73 sq M.predicted (S/P/Bld) [Vol rate/Area] 34.3 mL/min Low - PINF [facility] Comment on above: Calculation based on the Chronic Kidney Disease Epidemiology Collaboration (CKD-EPI) equation refit without adjustment for race Glucose [Mass/Vol] 617 mg/dL Critically high 82 - 1 15 mg/dL [facility] Interpretation and review of laboratory results Abnormal [facility] Potassium [Moles/Vol] 4.8 mmol/L 3.5 - 5.1 mmol/L [facility] Comment on above: Plasma potassium syed ues may be up to 0.5 mmol/L lower than serum values. Protein [Mass/Vol] 7.3 g/dL 6.4 - 8.3 g/dL [facility] Sodium [Moles/Vol] 128 mmol/L Low 136 - 145 mmol/L [facility] Urea nitrogen [Mass/Vol] 30 mg/dL High 9 - 23 mg/dL [facility] DRUGS OF ABUSEon 11-01-2024 AMPHETAMINE SCREEN Negative Normal [facility] Comment on above: Performed By: #### L [id number] ####[employer] Installer: NIEVES RUIZ ([id number])[facility] ([facility])[address] BARBITURATES SCREEN Negative Normal [facility] Comment on above: Performed By: #### L [id number] ####[employer] Installer: NIEVES RUIZ ([id number])[facility] ([facility])[address] [place] [address] BENZODIAZEPINE SCREEN Negative Normal [facility] Comment on above: Performed By: #### L [id number] ####[employer] Installer: NIEVES RUIZ ([id number])[facility] ([facility])[address] [place] [address] COCAINE METAB. SCREEN Negative Normal [facility] Comment on above: Performed By: #### L [id number] ####[employer] Installer: NIEVES RUIZ ([id number])[facility] ([facility])[address] [place] [address] FENTANYL SCREEN, UR QUAL Negative Normal [facility] Comment on above: Result Comment: [...] under separate order. Performed By: #### L [id number] ####[employer] Installer: NIEVES RUIZ ([id number])[facility])[address] [place] [address] METHADONE SCREEN Negative Normal [facility] Comment on above: Performed By: #### L [id number] ####[employer] Installer: NIEVES RUIZ ([id number])[facility] ([facility])[address] [place] [address] OPIATES SCREEN Negative Normal [facility] Comment on above: Performed By: #### L [id number] ####[employer] Installer: NIEVES RUIZ ([id number])[facility] ([facility])[address] [place] [address] OXYCODONE SCREEN Negative Normal [facility] Comment on above: Performed By: #### L [id number] ####[employer] Installer: NIEVES RUIZ ([id number])[facility] ([facility])[address] [place] [address] PHENCYCLIDINE SCREEN Negative Normal [facility] Comment on above: Performed By: #### L [id number] ####[employer] Installer: NIEVES RUIZ ([id number])[facility] ([facility])[address] [place] [address] ED Nursing Noteon 11-01-2024 ED Nursing Note Insulin drip and 0.45% sodium chloride infusions stopped per verbal order from . Awaiting BMP results for further orders from . Normal [facility] ED Nursing Note Provider notified that blood sugar dropped over 100, per order. Awaiting orders to continue protocol or not. Normal [facility] ED Nursing Note POCT blood sugar 503 Normal [facility] ED Nursing Note Pt assisted to toile t with wheelchair, stood well on own. Urine sample obtained. RN noted 2 small pressure injuries to buttock with redness surrounded. Pt states she is incontinent and wears briefs at home. Normal [facility] ED Nursing Note Lab called with sarah mims glucose 617, same reported to Dr. Vu and Dr. Dove via secure chat Normal [facility] ED Nursing Note Pt arrived for hyperglycemia, confusion and lightheadedness for past couple of days. Normal [facility] ED Provider Noteon ED Provider Note Normal [facility] HIGH SENSITIVITY TROPONIN, S ERIAL BASELINEon 11-01-2024 TROPONIN HS SERIAL BASELINE 122 ng/L High <=14 [facility] Comment on above: Result Comment: In i ndividuals presenting with symptoms > 2h, a baseline troponin <= 5 ng/L suggests acutecardiac injury is unlikely and further serial testing is generally not indicated. Performed By: #### L [id number], [id number], LAB99, [id number], [id number], [id number], LAB17, [id number] ####[employer] Installer: NIEVES RUIZ ([id number])[facility])[address] [place] [address] HIGH SENSITIVITY TROPONIN, S ERIAL, SECOND TESTon 11-01-2024 2H TROPONIN HS (SERIAL 2ND TROPONIN) 127 ng/L High <=14 [facility] Comment on above: Result Comment: Risi ng or falling troponin delta between 2 ??? 15 ng/L as compared to baseline value requires a 3rd serial troponin Performed By: #### L [id number] ####[employer] Installer: NIEVES RUIZ ([id number])[facility])[address] [place] [address] HIGH SENSITIVITY TROPONIN, S ERIAL, THIRD TESTon 11-01-2024 4H TROPONIN HS (SERIAL 3RD TROPONIN) 128 ng/L High <=14 [facility] Comment on above: Result Comment: Risi ng or falling troponin delta below 2 ng/L as compared to 2h troponin value suggeststhat acute cardiac injury is unlikely. Performed By: #### L [id number], [id number], [id number] ####[employer] Installer: NIEVES RUIZ ([id number])[facility])[address] [place] [address] LACTIC ACID WITH REFLEXon Lactate [Moles/Vol] 1.6 mmol/L Normal 0.5-2.2 [facility] Comment on above: Performed By: #### L [id number] ####[employer] Installer: NIEVES RUIZ ([id number])[facility])[address] [place] [address] LIPASEon 11-01-2024 Lipase [Catalytic activity/Vol] 9 U/L Normal <55 [facility] Comment on above: Performed By: #### L [id number], [id number], LAB99, UWT224, XOK564, [id number], LAB17, [id number] ####[employer] Installer: NIEVES RUIZ ([id number])[facility])[address] [place] [address] Laboratory - Chemistry and C hemistry - challengeon 11-01-2024 Beta hydroxybutyrate [Mass/Vol] 21 mg/dL High NINF - 2.8 mg/dL [facility] Glucose [Mass/Vol] 274 mg/dL High 70 - 100 mg/dL [facility] Glucose [Mass/Vol] 408 mg/dL High 70 - 100 mg/dL [facility] Glucose [Mass/Vol] mg/dL High 70 - 100 mg/dL [facility] Comment on above: Result Not Confirmed ; Magnesium [Mass/Vol] 1.8 mg/dL 1.6 - 2 .6 mg/dL [facility] TSH Qn 4.5 m[IU]/L [facility] Beta hydroxybutyrate [Mass/Vol] 50.7 mg/dL High NINF - 2.8 mg/dL [facility] Lipase [Catalytic activity/Vol] 9 U/L NINF - 55 U/L [facility] Lactate [Moles/Vol] 1.6 mmol/L 0.5 - 2. 2 mmol/L [facility] Base excess Calc (BldV) [Moles/Vol] -6.1000 mmol/L Low -3.0 - 3.0 mmol/L [facility] CO2 (BldV) [Partial pressure] 28.2 mm[Hg] Low [facility] CO2 [Moles/Vol] 18 mmol/L Low 24.0 - 28.0 mmol/L [facility] HCO3 (Bld) [Moles/Vol] 17.2 mmol/L Low 23.0 - 27.0 mmol/L [facility] Oxygen (BldV) [Partial pressure] 42.3 mm[Hg] mm Hg [facility] pH (BldV) 7.402 [pH] 7.330 - 7.430 [facility] Glucose [Mass/Vol] mg/dL High 70 - 100 mg/dL [facility] Comment on above: Confirmation Drawn; Laboratory - Hematology and Cell countson 11-01-2024 Hemoglobin (Bld) [Mass/Vol] 14.2 g/dL Screen only [facility] Lipase [Catalytic activity/V ol]on 11-01-2024 Interpretation and review of laboratory results Normal [facility] th MAGNESIUMon 11-01-2024 Magnesium [Mass/Vol] 1.8 mg/dL Normal 1.6-2.6 [facility] Comment on above: Result Comment: ORDE R COMMENTS:Higher values can be expected in females during menses. Performed By: #### L AB113, [id number], LAB99, [id number], ZIN100, XVD203, LAB17, [id number] ####[employer] Installer: NIEVES RUIZ ([id number])[facility])[address] [place] [address] Magnesium [Mass/Vol]on 11-01 Interpretation and review of laboratory results Normal [facility] Higher values can be expected in females during menses. [facility] NT PRO BNPon 11-01-2024 Natriuretic peptide B (Bld) [Mass/Vol] 6801 pg/mL High <125 [facility] Comment on above: Performed By: #### L AB113, [id number], LAB99, XLH551, TXK446, VGS588, LAB17, [id number] ####[employer] Installer: NIEVES RUIZ ([id number])[facility] ([facility])[address] [place] [address] Natriuretic peptide B [Mass/ Vol]on 11-01-2024 Interpretation and review of laboratory results Abnormal [facility] Natriuretic peptide B (Bld) [Mass/Vol] 6801 pg/mL High NINF - 125 pg/mL [facility] No Panel Informationon 11-01 Interpretation and review of laboratory results Abnormal [facility] Interpretation and review of laboratory results Abnormal [facility] Performed by: [facility], [address] [place] [id number] CLIA ID: [id number] [facility] Interpretation and review of laboratory results Abnormal [facility] Performed by: [facility], [address] [place] [id number] CLIA ID: [id number] [facility] 2h Troponin HS (Serial 2nd Troponin) 127 ng/L High NINF - 14 ng/L [facility] Comment on above: Rising or falling tr oponin delta between 2 15 ng/L as compared to baseline value requires a 3rd serial troponin Interpretation and review of laboratory results Abnormal [facility] Interpretation and review of laboratory results Abnormal [facility] Performed by: [facility], [address] [place] [id number] CLIA ID: [id number] [facility] Interpretation and review of laboratory results Abnormal [facility] Troponin HS Serial Baseline 122 ng/L High NINF - 14 ng/L [facility] Comment on above: In individuals prese nting with symptoms > 2h, a baseline troponin <= 5 ng/L suggests acute cardiac injury is unlikely and further serial testing is generally not indicated. [facility] Interpretation and review of laboratory results Abnormal [facility] Interpretation and review of laboratory results Normal [facility] Amount Of Oxygen [facility] Interpretation and review of laboratory results Abnormal [facility] Source Of Oxygen None (Room Air) [facility] Assessment of oxygenation is best done with an arterial blood gas determination. Reference ranges for pO2, bicarbonate, and base excess are for mixed venous blood. Specimens drawn from a peripheral vein will often have higher values. [facility] Interpretation and review of laboratory results Abnormal [facility] Performed by: [facility], [address] [place] [address] CLIA ID: [id number] [facility] PHOSPHORUSon 11-01-2024 Phosphate [Mass/Vol] 3.5 mg/dL Normal 2.3-4.7 [facility] Comment on above: Performed By: #### L AB113, [id number], LAB99, VCO649, WTL764, ETW418, LAB17, [id number] ####[employer] Installer: NIEVES RUIZ ([id number])[facility] ([facility])[address] [place] [address] Phosphate [Moles/Vol]on 10-21 Interpretation and review of laboratory results Normal [facility] Phosphate [Mass/Vol] 3.5 mg/dL 2.3 - 4 .7 mg/dL [facility] THYROID STIMULATING HORMONEo n 11-01-2024 THYROID STIMULATING HORMONE 4.50 uIU/mL Normal 0.35-4.94 [facility] Comment on above: Performed By: #### L AB113, [id number], LAB99, [id number], JGK893, XCM011, LAB17, [id number] ####[employer] Installer: NIEVES RUIZ ([id number])[facility] ([facility])[address] [place] [address] [place] TSH Qnon 11-01-2024 Interpretation and review of laboratory results Normal [facility] URINE CULTUREon 11-01-2024 Bacteria identified Cx Nom (U) Normal [facility] Comment on above: Performed By: #### L [id number], [id number] ####[employer] Installer: NIEVES RUIZ ([id number])[facility])[address] [place] [address] Urinalysis complete panel (U )on 11-01-2024 Bacteria LM.HPF (Urine sed) [#/Area] Moderate Abnormal Negative /HPF [facility] Bilirubin Ql (U) Negative Negative mg/dL [facility] Clarity (U) Turbid Abnormal Clear [facility] Color (U) Yellow Lt. Yellow [facility] Epithelial cells.squamous LM.HPF (Urine sed) [#/Area] 3-5 [facility] Glucose Ql (U) >1,000 Abnormal Normal (<70) mg/dL [facility] Hemoglobin Ql (U) 0.2 mg/dL Abnormal Negative [facility] ealth Hyaline casts Auto (Urine sed) [#/Area] 3-5 Abnormal Negative /LPF [facility] Interpretation and review of laboratory results Abnormal [facility] Ketones (U) [Mass/Vol] 20 mg/dL Abnormal Negative [facility] Leukocyte clumps LM.HPF (Urine sed) [#/Area] Rare Abnormal Negative /HPF [facility] Leukocyte esterase Test strip Ql (U) 500 Abnormal Negative Rad/uL [facility] Mucus LM.HPF (Urine sed) [#/Area] Few Negative /LPF [facility] Nitrite Ql (U) Negative Negative [facility] pH (U) 5.5 [pH] 5.0 - 8.0 pH [facility] Protein (U) [Mass/Vol] 100 mg/dL Abnormal Negative [facility] RBC LM.HPF (Urine sed) [#/Area] 6-10 Abnormal [facility] Specific gravity (U) [Rel density] 1.023 1.005 - 1.030 [facility] Urobilinogen (U) [Mass/Vol] Normal Normal (0-1) mg/dL [facility] WBC LM.HPF (Urine sed) [#/Area] /[HPF] Abnormal [facility] Yeast.budding LM.HPF (Urine sed) [#/Area] Few Abnormal Negative /HPF [facility] Vital signson 11-01-2024 Oxygen saturation in Venous blood 75.8 % [facility] XR Chest Single viewon 11-01 No radiographic acute cardiopulmonary process. Report Dictated on Electronically Signed By: Claudette Nunez MD Electronically Signed Date/Time: 11/01/2024 6:25 PM EDT [facility] Patient Name: DAMEON POTTER [...] are sharp. There is no confluent consolidation. [facility] Claudette Nunez MD - 11/01/2024 Patient [...] Electronically Signed Date/Time: 11/01/2024 6:25 PM EDT [facility] Radiology Study observation (narrative) [facility] XR Chest Single viewOrdered By: Claudette Nunez on 11-01-2024 [facility]: Power Work Phone: CNCOon 09-23-2024 [facility] Letter Text Normal [facility] CNCOon 09-11-2024 [facility] Letter Text Normal [facility] 36on 08-18-2024 36 Noted, thank you! Normal [facility] 36 Name of Caller: Dameon Contact Reason for Appointment: Pt states she injured her foot and cannoot walk. She will call back to reschedule Office Name: Endocrinology Normal [facility] 36on 05-23-2024 36 Spoke with patient t o make follow up appointment. Patient states she is unsure when she will be able to make it in and will call wound center when she has a better idea of her schedule. Normal [facility] OCT MACULA CIRRUS OU (BOTH E YES)on 05-02-2024 [facility] Radiology Study observation (narrative) [facility] OCT OPTIC NERVE CIRRUS OU (B OTH EYES)on 05-02-2024 [facility] Radiology Study observation (narrative) [facility] US Heart TransthoracicOrdere d By: Jose Martin Garcia on 03-14-2024 Ao Root Index 1.53 cm/m2 [facility] h Work Phone: Aortic Root 3.4 cm [facility]: Power Work Phone: Aortic Sinus Valsalva 3.4 cm [facility] Fwd: Power Work Phone: Aortic Sinus Valsalva Index 1.53 cm/m2 [facility] Work Phone: Ascending Aorta 3.7 cm [facility] Work Phone: Ascending Aorta Index 1.67 cm/m2 [facility] Fwd: Power Work Phone: AV Area by Peak Velocity 1.1 cm2 [facility] Work Phone: AV Area by VTI 1.0 cm2 [facility] Work Phone: AV Area by VTI 1 cm2 [facility] Work Phone: AV AT 133.21 ms [facility] Work Phone: AV Mean Gradient 25 mmHg [facility] Work Phone: AV Mean Velocity 2.4 m/s [facility] Work Phone: AV Peak Gradient 56 mmHg [facility] Work Phone: AV Peak Velocity 3.7 m/s [facility] Work Phone: AV Velocity Ratio 0.38 [facility] e[facility] Work Phone: AV VTI 93.1 cm [facility] Work Phone: PEÑA/BSA Peak Velocity 0.5 cm2/m2 [facility] Work Phone: PEÑA/BSA VTI 0.5 cm2/m2 [facility] Work Phone: E/E' Lateral 21.50 [facility] Work Phone: E/E' Lateral 21.5 [facility] Work Phone: E/E' Ratio (Averaged) 19.35 [facility] ma Health Work Phone: E/E' Septal 17.20 [facility] Work Phone: E/E' Septal 17.2 [facility] Work Phone: EF BP 68 % 55 - 100 % [facility] Work Phone: Est. RA Pressure 3 mmHg [facility] Work Phone: Global Longitudinal Strain -17.1 % [facility] Work Phone: Interpretation and review of laboratory results Abnormal [facility] th Work Phone: IVC Diameter 1.8 cm [facility] Work Phone: LA Diameter 4.3 cm [facility] Work Phone: [phone] LA Size Index 1.94 cm/m2 [facility] Work Phone: [phone] LA Volume 2C 76 mL Abnormal 22 - 52 mL [facility] Work Phone: [phone] LA Volume 4C 64 mL Abnormal 22 - 52 mL [facility] Work Phone: LA Volume A/L 73 mL [facility] Work Phone: LA Volume BP 70 mL Abnormal 22 - 52 mL [facility] Work Phone: LA Volume Index 2C 34 mL/m2 16 - 34 mL/m2 [facility] Work Phone: LA Volume Index 4C 29 mL/m2 16 - 34 mL/m2 [facility] Work Phone: LA Volume Index A/L 33 mL/m2 16 - 34 mL/m2 [facility] Work Phone: LA Volume Index BP 32 ml/m2 16 - 34 ml/m2 [facility] Work Phone: LA/AO Root Ratio 1.26 [facility] Work Phone: LV E' Lateral Velocity 4 cm/s [facility] Health Work Phone: LV E' Septal Velocity 5 cm/s [facility] Health Work Phone: LV EDV A2C 79 mL [facility] Work Phone: LV EDV A4C 96 mL [facility] Work Phone: LV EDV BP 88 mL 56 - 104 mL [facility] Work Phone: LV EDV Index A2C 36 mL/m2 [facility] Work Phone: LV EDV Index A4C 43 mL/m2 [facility] Work Phone: LV EDV Index BP 40 mL/m2 [facility] Work Phone: LV Ejection Fraction A2C 65 % [facility] Work Phone: LV Ejection Fraction A4C 71 % [facility] Work Phone: LV ESV A2C 28 mL [facility] Work Phone: LV ESV A4C 28 mL [facility] Work Phone: LV ESV BP 29 mL 19 - 49 mL [facility] Work Phone: LV ESV Index A2C 13 mL/m2 [facility] Work Phone: LV ESV Index A4C 13 mL/m2 [facility] Work Phone: [phone] LV ESV Index BP 13 mL/m2 [facility] Work Phone: LVOT Area 3.1 cm2 [facility] Work Phone: LVOT Cardiac Output 5.6 liter/mi nut e [facility] Work Phone: LVOT Diameter 2.0 cm [facility] Work Phone: LVOT Diameter 2 cm [facility] Work Phone: LVOT Mean Gradient 4 mmHg [facility] Work Phone: LVOT Peak Gradient 7 mmHg [facility] Fwd: Power Work Phone: [phone] LVOT Peak Velocity 1.4 m/s [facility] Fwd: Power Work Phone: LVOT Stroke Volume Index 43.6 mL/m2 [facility]wd: Power Work Phone: LVOT SV 96.7 ml [facility] Fwd: Power Work Phone: LVOT VTI 30.8 cm [facility] Fwd: Power Work Phone: LVOT:AV VTI Index 0.33 [facility]alth Work Phone: MV A Velocity 1.07 m/s [facility] Work Phone: MV E Velocity 0.86 m/s [facility] Work Phone: MV E Wave Deceleration Time 434.6 ms [facility] Work Phone: MV E/A 0.80 [facility] Work Phone: MV E/A 0.8 [facility] Work Phone: RA Area 4C 47.4 mL [facility] Work Phone: RA Area 4C 46.4 mL [facility] Work Phone: RV Basal Dimension 3.3 cm [facility] Work Phone: RV Free Wall Peak S' 14 cm/s [facility] Health Work Phone: RV Longitudinal Dimension 5.4 cm [facility] Work Phone: [phone] RV Mid Dimension 1.7 cm [facility] Work Phone: Sinotubular Junction 2.9 cm [facility] Health Work Phone: [phone] TAPSE 2.2 cm 1.7 cm [facility] Work Phone: [phone] [facility] Work Phone: [phone] Heart Transthoracicon Left Ventricle: Left ventricle [...] body habitus. No contrast was given. CV [facility] CT Abdomen and Pelvis W cont rast Brittany 12-04-2023 1. No evidence of abdominal or pelvic mass lesion or adenopathy or other significant abnormality with chronic changes as detailed above. Report Dictated on Electronically Signed By: Tha Hamm MD Electronically Signed Date/Time: 12/04/2023 12:33 PM [facility] Patient Name: DAMEON POTTER : [...] are seen in the lower lumbar spine. [facility] Tha Hamm MD - 12/04/2023 Patient Name: DAMEON POTTER : 1955 [place] [id number] Exam Date/Time: 12/04/2023 10:43 Procedure: CT ABDOMEN [...] Electronically Signed Date/Time: 12/04/2023 12:33 PM EDT [facility] Radiology Study observation (narrative) [facility]ole Polanco alth CT Abdomen and Pelvis W cont rast IVOrdered By: Tha Hamm on 12-04-2023 [facility] Work Phone: FUNDUS PHOTOS OU (BOTH EYES) on 11-13-2023 [facility] Radiology Study observation (narrative) [facility] OCT MACULA CIRRUS OU (BOTH E YES)on 11-13-2023 [facility] Radiology Study observation (narrative) [facility] AMB POC HEMOGLOBIN A1Con HbA1c (Bld) [Mass fraction] 10.8 % Abnormal - 5.7 % [facility] HbA1c (Bld) [Mass fraction]o n 11-02-2023 Interpretation and review of laboratory results Abnormal [facility] Radiology Study observation (narrative) [facility] AMB POC HEMOGLOBIN A1Con HbA1c (Bld) [Mass fraction] 10.2 % Abnormal - 5.7 % [facility] HbA1c (Bld) [Mass fraction]o n 05-09-2023 Interpretation and review of laboratory results Abnormal [facility] AMB POC HEMOGLOBIN A1Con HbA1c (Bld) [Mass fraction] 10.2 % Abnormal - 5.6 % [facility] HbA1c (Bld) [Mass fraction]o n 01-19-2023 Interpretation and review of laboratory results Abnormal [facility] Radiation Onc F/U Noteon Radiation Onc F/U Note [facility] SYST EM [facility] Radiation Oncology RADIATION ONCOLOGY FOLLOW UP PATIENT: Dameon Potter DATE OF SERVICE: 03/01/2022 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 MMR proteins intact. STAGE: pT2 NX M0, II HISTORY OF PRESENT ILLNESS: Ms. 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 A D T C [...] follow with the nurse practitioner at the MANIPULATOR OPERATOR oncologist office. She was last seen in [...] Zinc deficiency. Ms. Potter follows at the [facility] for the lower extremity issue. Primary open angle glaucoma. Cataracts. PAST SURGICAL HISTORY: Robotic hysterectomy with BSO 09/30/2020. D T C 09/03/2020. Gastric bypass surgery with laparoscopic gallbladder removal and umbilical hernia repair 01/29/2018. Gum surgery for wisdom teeth in . Thyroglossal duct excision 2000. Partial thyroidectomy for a cyst. Upper endoscopy 03/20/2017. [place] teeth extraction 2012. Bilateral cataract surgery ALLERGIES: erythromycin (bulk); levofloxacin; nitrofurantoin (tjrexedfxh29%); macrolides T ketolides; molds T smuts; Quinolones; [...] ABDOMEN: Soft, nonte (more content not included)... [facility] ANES POSTPROC EVALon 022 ANES POSTPROC EVAL HNO ID: [id number] Author: Aman Dai MD Service: Anesthesiology Author Type: Anesthesiologist Type: Anesthesia Postprocedure Evaluation Filed: 12/06/2021 8:12 AM Note Text: POST ANESTHESIA EVALUATION NOTE : 1955 Procedure Summary Date: 12/06/21 Room / Location: [place] [address] / [facility] Anesthesia Start: 737 Anesthesia Stop: 808 Procedures: [...] December 06, 2021 TIME: 8:11 AM CSN: [id number] [facility] ANES PRE-OPon 12-06-2021 ANES PRE-OP HNO ID: [id number] Author: Aman Dai MD Service: Anesthesiology Author Type: Anesthesiologist Type: Anesthesia Preprocedure Evaluation Filed: 12/06/2021 7:34 AM Note Text: ANESTHESIOLOGY DAY OF SURGERY NOTE : 1955 Procedure Information Date/Time: 12/06/21799 Procedures: PHACOEMULSIFICATION CATARACT IMPLANT INTRAOCULAR LENS W/O ENDOSCOPIC CYCLOPHOTOCOAGULATION (Right Eye) OPHTHALMIC BIOMETRY BY PARTIAL COHERENCE INTERFEROMETRY W/INTRAOCULAR LENS POWER CALCULATION (Right Eye) Location: [facility] / [facility] Surgeons: Moses Acevedo MD Estimated body mass [...] December 06, 2021 TIME: 7:33 AM CSN: [id number] [facility] HISTORY PHYSICALon HISTORY PHYSICAL HNO ID: [id number] Author: Moses Acevedo MD Service: Abstract Author [...] DATE: December 06, 2021 TIME: 7:46 AM [facility] OPERATIVE NOon 12-06-2021 OPERATIVE NO HNO ID: [id number] Author: Moses Acevedo MD Service: Abstract Author Type: Physician Type: Operative Report Filed: 12/06/2021 8:09 AM Note Text: OPERATIVE/PROCEDURE REPORT Patient Name: Dameon Potter LOG ID: [id number] Surgery/Procedure Date: 12/06/2021 Incision/Procedure Start Time: 7:53 AM Incision Close/Procedure End Time: 8:07 AM Surgeon(s)/Procedural ist(s) and House Worker General(s): Surgeon(s) and Role: * Moses Acevedo MD [...] created using a cystotome and utrata forceps. [place]-dissection and hydro-delineation were then performed. Phacoemulsification was [...] Implant Name Type Inv. Item Serial No. Digital Content Manager Lot No. LRB Model Num No. Used LENS ACRYSOF ULTRASERT +16.5 DIOPTER ACRYLIC IOL 1 PIECE FOLDABLE UV BLUE - [id number] Intraocular Lens LENS ACRYSOF ULTRASERT +16.5 DIOPTER ACRYLIC IOL 1 PIECE FOLDABLE UV BLUE [id number] [facility] Right [id number] 1 Drains: None Complications: None Moses Acevedo MD December 06, 2021 8:09 AM [facility] ANES POSTPROC EVALon 022 ANES POSTPROC EVAL HNO ID: [id number] Author: Aman Dai MD Service: Anesthesiology Author Type: Anesthesiologist Type: Anesthesia Postprocedure Evaluation Filed: 11/22/2021 8:17 AM Note Text: POST ANESTHESIA EVALUATION NOTE : 1955 Procedure Summary Date: 11/22/21 Room / Location: [place] [address] / [facility] Anesthesia Start: 734 Anesthesia Stop: 808 Procedures: [...] November 22, 2021 TIME: 8:16 AM CSN: [id number] [facility] ANES PRE-OPon 11-22-2021 ANES PRE-OP HNO ID: [id number] Author: Aman Dai MD Service: Anesthesiology Author Type: Anesthesiologist Type: Anesthesia Preprocedure Evaluation Filed: 11/22/2021 7:16 AM Note Text: ANESTHESIOLOGY DAY OF SURGERY NOTE : 1955 Procedure Information Date/Time: 11/22/21729 Procedures: PHACOEMULSIFICATION CATARACT IMPLANT INTRAOCULAR LENS W/O ENDOSCOPIC CYCLOPHOTOCOAGULATION (Left Eye) OPHTHALMIC BIOMETRY BY PARTIAL COHERENCE INTERFEROMETRY W/INTRAOCULAR LENS POWER CALCULATION (Left Eye) Location: [facility] / [facility] Surgeons: Moses Acevedo MD Estimated body mass [...] November 22, 2021 TIME: 7:14 AM CSN: [id number] [facility] HISTORY PHYSICALon HISTORY PHYSICAL HNO ID: [id number] Author: Moses Acevedo MD Service: Abstract Author [...] DATE: November 22, 2021 TIME: 7:41 AM [facility] OPERATIVE NOon 11-22-2021 OPERATIVE NO HNO ID: [id number] Author: Moses Acevedo MD Service: Abstract Author Type: Physician Type: Operative Report Filed: 11/22/2021 8:09 AM Note Text: OPERATIVE/PROCEDURE REPORT Patient Name: Dameon Potter LOG ID: [id number] Surgery/Procedure Date: 11/22/2021 Incision/Procedure Start Time: 7:52 AM Incision Close/Procedure End Time: 8:07 AM Surgeon(s)/Procedural ist(s) and House Worker General(s): Surgeon(s) and Role: * Moses Acevedo MD [...] created using a cystotome and utrata forceps. [place]-dissection and hydro-delineation were then performed. Phacoemulsification was [...] Implant Name Type Inv. Item Serial No. Digital Content Manager Lot No. LRB Model Num No. Used LENS ACRYSOF ULTRASERT +15.5 DIOPTER ACRYLIC IOL 1 PIECE FOLDABLE UV BLUE - [id number] Intraocular Lens LENS ACRYSOF ULTRASERT +15.5 DIOPTER ACRYLIC IOL 1 PIECE FOLDABLE UV BLUE [id number] [facility] Left ACU0T0.155 1 Drains: None Complications: None Moses Acevedo MD November 22, 2021 8:09 AM [facility] Radiation Onc F/U Noteon Radiation Onc F/U Note [facility] Radiation Oncology RADIATION ONCOLOGY FOLLOW UP PATIENT: Dameon Potter DATE OF SERVICE: 09/01/2021 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 MMR proteins intact. STAGE: pT2 NX M0, II HISTORY OF PRESENT ILLNESS: Ms. 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 A D T C [...] level stable. She is scheduled to see MANIPULATOR OPERATOR oncology in October. She is following with [...] Zinc deficiency. Ms. Potter follows at the [facility] for the lower extremity issue. Primary open angle glaucoma. Cataracts. PAST SURGICAL HISTORY: Robotic hysterectomy with BSO 09/30/2020. D T C 09/03/2020. Gastric bypass surgery with laparoscopic gallbladder removal with LRYGB and umbilical hernia repair 01/29/2018. Gum surgery for wisdom teeth in . Thyroglossal duct excision 2000. Partial thyroidectomy for a cyst. Upper endoscopy 03/20/2017. [place] teeth extraction 2012. ALLERGIES: erythromycin (bulk); levofloxacin; nitrofurantoin (%); macrolides T ketolides; molds T smuts; Quinolones; [...] rate and (more content not included)... Normal [facility] CT Guidance Radiology Therap yOrdered By: Ino He on 01-11-2021 Patient Name: DAMEON POTTER Computed Tomography ACCESSION EXAM DATE/TIME PROCEDURE ORDERING PROVIDER [id number] 01/10/2021 10:[address] Nonbill Guide Devon [...] evidence of diverticulitis. Report Dictated on Workstation: [id number] --- Final --- Dictated: 01/11/2021 8:25 am Dictating Physician: MD SIMENTAL JEFFREY Signed Date and Time: 01/11/2021 8:27 am Signed by: MD SIMENTAL JEFFREY Transcribed Date and Time: 01/11/2021 8:25 [facility] Work Phone: [facility], [facility] Incoming Radiology Results From [employer] - 01/11/2021 8:28 AM EDT Patient Name: DAMEON POTTER Computed Tomography ACCESSION EXAM DATE/TIME PROCEDURE ORDERING PROVIDER [id number] 01/10/2021 10:[address] Nonbill Guide Devon [...] JEFFREY Transcribed Date and Time: 01/11/2021 8:25 [facility] Work Phone: [facility] Work Phone: CT Nonbill Guide Rad Therapy on 01-10-2021 CT Nonbill Guide Rad Therapy Patient Name: DAMEON POTTER Computed Tomography ACCESSION EXAM DATE/TIME PROCEDURE ORDERING PROVIDER [id number] 01/10/2021 10:[address] Nonbill Guide Devon [...] evidence of diverticulitis. Report Dictated on Workstation: [employer] Final Dictated: 01/11/2021 8:25 am Dictating Physician: MD SIMENTAL JEFFREY Signed Date and Time: 01/11/2021 8:27 am Signed by: MD SIMENTAL JEFFREY Transcribed Date and Time: 01/11/2021 8:25 Normal [facility] Hemogramon 12-27-2020 Erythrocyte distribution width (RBC) [Ratio] 14.2 % Normal 11.5-14.5 [facility] Comment on above: Performed By: #### H [facility] #### [place] [id number] Hematocrit (Bld) [Volume fraction] 38.4 % Normal 35.0-47.0 [facility] Comment on above: Performed By: #### H EMOG #### [facility] [address] [place], [place] Hemoglobin (Bld) [Mass/Vol] 12.7 g/dL Normal 11.7-16.0 [facility] Comment on above: Performed By: #### H EMOG #### [place] [address] [address] [place], [place] MCH (RBC) [Entitic mass] 29.5 pg Normal 26.0-34.0 [facility] Comment on above: Performed By: #### H EMOG #### [place] [address] [address] [place], [place] MCHC 33.1 % Normal 32.0-36.0 [facility] Comment on above: Performed By: #### H EMOG #### [place] [address] [address] [place], [place] MCV (RBC) [Entitic vol] 89.1 fL Normal 79.0-98.0 [facility] Comment on above: Performed By: #### H EMOG #### [place] [address] [address] [place], [place] Platelet mean volume (Bld) [Entitic vol] 11.3 fL High 7.4-10.4 [facility] Comment on above: Performed By: #### H EMOG #### [place] [address] [address] [place], [place] Platelets (Bld) [#/Vol] 147 10*3/uL Normal 140-440 [facility] Comment on above: Performed By: #### H EMOG #### [address] [place], [place] RBC (Bld) [#/Vol] 4.31 10*6/uL Normal 3.80-5.20 [facility] Comment on above: Performed By: #### H EMOG #### [place] [address] [address] [place], [place] WBC (Bld) [#/Vol] 5.6 10*3/uL Normal 3.6-10.7 [employer] Comment on above: Performed By: #### H [facility] #### [facility] [address] [facility] [address] Laboratory - Chemistry and C hemistry - challengeOrdered By: Ino He on 12-27-2020 Hemoglobin.gastrointestin al spec 1 Ql (Stl) 12.7 g/dL 11.7 - 16.0 g/dL [facility] Work Phone: Laboratory - Hematology and Cell countsOrdered By: Ino He on 12-27-2020 Hematocrit (Bld) [Volume fraction] 38.4 % 35.0 - 47.0 % [facility] [employer] Work Phone: MCH (RBC) [Entitic mass] 29.5 pg 26. 0 - 34.0 pg [employer] Phone: MCHC (RBC) [Mass/Vol] 33.1 % 32.0 - 36.0 % [employer] Phone: MCV (RBC) [Entitic vol] 89.1 fL 79.0 - 98.0 fL [employer] Work Phone: Platelet distribution width (Bld) [Ratio] 14.2 % 11.5 - 14.5 % [employer] Phone: Platelet mean volume (Bld) [Entitic vol] 11.3 fL High 7.4 - 10.4 fL [employer] Phone: Platelets (Bld) [#/Vol] 147 10*3/uL 140 - 440 10*3/uL [employer] Work Phone: RBC (Bld) [#/Vol] 4.31 10*6/uL 3.80 - 5.2 0 10*6/uL [employer] Work Phone: WBC (Bld) [#/Vol] 5.6 10*3/uL 3.6 - 10.7 10*3/uL [employer] Work Phone: No Panel InformationOrdered By: Ino He on 12-27-2020 Interpretation and review of laboratory results Abnormal [facility] Work Phone: [phone] Test Performed by [facility]: [facility], [address] [place] [address] [facility] Work Phone: [facility] Work Phone: [phone] Hemogramon 12-13-2020 Erythrocyte distribution width (RBC) [Ratio] 13.7 % Normal 11.5-14.5 [facility] Comment on above: Performed By: #### B GLU #### [facility]: Power [place] [address] [place], [place] Hematocrit (Bld) [Volume fraction] 38.2 % Normal 35.0-47.0 [facility] Comment on above: Performed By: #### B GLU #### [address] Hemoglobin (Bld) [Mass/Vol] 12.6 g/dL Normal 11.7-16.0 [facility] Comment on above: Performed By: #### B GLU #### [facility]: Power [address] MCH (RBC) [Entitic mass] 29.3 pg Normal 26.0-34.0 [facility] Comment on above: Performed By: #### B GLU #### [address] MCHC 32.9 % Normal 32.0-36.0 [facility] Comment on above: Performed By: #### B GLU #### [address] MCV (RBC) [Entitic vol] 89.1 fL Normal 79.0-98.0 [facility] Comment on above: Performed By: #### B GLU #### [address] Platelet mean volume (Bld) [Entitic vol] 11.0 fL High 7.4-10.4 [facility] Comment on above: Performed By: #### B GLU #### [address] Platelets (Bld) [#/Vol] 125 10*3/uL Low 140-440 [facility] Comment on above: Performed By: #### B GLU #### [facility]: [facility] [address] [place], [place] RBC (Bld) [#/Vol] 4.29 10*6/uL Normal 3.80-5.20 [facility] Comment on above: Performed By: #### B GLU #### [facility]: [facility] [address] [place], [place] WBC (Bld) [#/Vol] 4.3 10*3/uL Normal 3.6-10.7 [facility] Comment on above: Performed By: #### B GLU #### [facility] [address] [place], [place] Laboratory - Chemistry and C hemistry - challengeOrdered By: Ino He on 12-13-2020 Hemoglobin.gastrointestin al spec 1 Ql (Stl) 12.6 g/dL 11.7 - 16.0 g/dL [facility] Work Phone: [phone] Laboratory - Hematology and Cell countsOrdered By: Ino He on 12-13-2020 Hematocrit (Bld) [Volume fraction] 38.2 % 35.0 - 47.0 % [employer] Work Phone: [phone] MCH (RBC) [Entitic mass] 29.3 pg 26. 0 - 34.0 pg [employer] Work Phone: [phone] MCHC (RBC) [Mass/Vol] 32.9 % 32.0 - 36.0 % [employer] Work Phone: [phone] MCV (RBC) [Entitic vol] 89.1 fL 79.0 - 98.0 fL [employer] [employer] Work Phone: [phone] Platelet distribution width (Bld) [Ratio] 13.7 % 11.5 - 14.5 % [employer] Work Phone: [phone] Platelet mean volume (Bld) [Entitic vol] 11.0 fL High 7.4 - 10.4 fL [employer] Work Phone: [phone] Platelets (Bld) [#/Vol] 125 10*3/uL Low 140 - 440 10*3/uL [employer] Work Phone: [phone] RBC (Bld) [#/Vol] 4.29 10*6/uL 3.80 - 5.2 0 10*6/uL [facility] [employer] Work Phone: [phone] WBC (Bld) [#/Vol] 4.3 10*3/uL 3.6 - 10.7 10*3/uL [employer] Work Phone: [phone] Panel InformationOrdered By: Ino He on 12-13-2020 Interpretation and review of laboratory results Abnormal [facility] Work Phone: [phone] Test Performed by [facility] [address] [facility] Work Phone: [phone] [facility] Work Phone: [phone] CT Guidance Radiology Therap yOrdered By: Ino He on 11-11-2020 Patient Name: DAMEON POTTER Computed Tomography ACCESSION EXAM DATE/TIME PROCEDURE ORDERING PROVIDER [id number] 11/11/2020 09:[address] Nonbill Guide Devon [...] Tomography ACCESSION EXAM DATE/TIME PROCEDURE ORDERING PROVIDER [id number] 11/11/2020 09:[address] Nonbill Guide Devon [...] Tomography ACCESSION EXAM DATE/TIME PROCEDURE ORDERING PROVIDER [id number] 11/11/2020 09:[address] Nonbill Guide Devon [...] Transcribed Date and Time: 11/11/2020 4:16 Normal [facility] CT Chest/Abdomen/Pelvis (PO, IV)on 10-27-2020 CT Chest/Abdomen/Pelvis (PO,IV) Patient Name: DAMEON POTTER Computed Tomography ACCESSION EXAM DATE/TIME PROCEDURE ORDERING PROVIDER [id number] 10/27/2020 14:[address] Chest/Abdomen/Pelvis Lamine HE, INO E (PO,IV) CPT code 38791 [id number] Reason For Exam (CT Chest/Abdomen/Pelvis (PO,IV)) [...] Transcribed Date and Time: 10/28/2020 8:06 Normal [facility] Glucose,Bedsideon 10-01-2020 Glucose [Mass/Vol] 263 mg/dL High 70-100 [facility] Comment on above: Result Comment: Test performed by glucose meter. Results may be 10%-15% lower than serum/plasma values. (CLIA ID [id number]) Performed By: #### B GLU #### [facility] [address] [place] [address] Glucose [Mass/Vol] 321 mg/dL High 70-100 [facility] Comment on above: Result Comment: Test performed by glucose meter. Results may be 10%-15% lower than serum/plasma values. (CLIA ID [id number]) Performed By: #### B GLU #### [facility] [address] [place] [address] Glucose [Mass/Vol] 341 mg/dL High 70-100 [facility] Comment on above: Result Comment: Test performed by glucose meter. Results may be 10%-15% lower than serum/plasma values. (CLIA ID [id number]) Performed By: #### B GLU #### [facility]: [facility] [address] [place] [address] POCT Glucoseon 10-01-2020 Glucose [Mass/Vol] 263 mg/dL High 70 - 100 mg/dL [facility] Work Phone: Comment on above: Test performed by gl ucose meter. Results may be 10%-15% lower than serum/plasma values. (CLIA ID [id number]) Interpretation and review of laboratory results Abnormal [facility] [employer] Work Phone: Test Performed by [employer], [address] [place] [address] [facility] Work Phone: Glucose [Mass/Vol] 321 mg/dL High 70 - 100 mg/dL [facility] Work Phone: Comment on above: Test performed by gl ucose meter. Results may be 10%-15% lower than serum/plasma values. (CLIA ID [id number]) Interpretation and review of laboratory results Abnormal [facility] Work Phone: Test Performed by [employer], [address] [place] [address] [facility] Work Phone: Glucose [Mass/Vol] 341 mg/dL High 70 - 100 mg/dL [facility] Work Phone: Comment on above: Test performed by gl ucose meter. Results may be 10%-15% lower than serum/plasma values. (CLIA ID [id number]) Interpretation and review of laboratory results Abnormal [facility] [employer] Work Phone: Test Performed by [employer], [address] [place] [address] [facility] Work Phone: Surgical Pathologyon 021 Sodium [Moles/Vol] SEE BELOW [facility] Work Phone: [phone] [facility] PATHOLOGY AND LABORATORY MEDICINE [address] [place] [address] FINAL SURGICAL PATHOLOGY REPORT NAME: DAMEON POTTER : 1955 65 Y F BILLING NO.: [id number] LOCATION: [place] [address] 01 PROCEDURE 09/30/2020 DATE: SURGEON: CUAUHTEMOC STUBBS [...] FIGO Stage: II Comment(s): Pending MMR IHC PRODUCTION SUPERVISOR TRAINEE TUMOR BLOCK(S): A5 JAW/JAW Intradepartmental Consultation: HERNAN [...] or lesions are identified in the ovaries. Web Marketing Analyst sections of the specimen are submitted as follows: Cassette Summary: A1) Anterior cervix. A2-A4) Anterior endomyometrium. A5) Posterior cervix. A6-A10) Web Marketing Analyst sections of tumor with areas of [...] characteristics determined by the clinical laboratories of [facility]. They have not been cleared by [...] negativity on decalcified specimens. Professional Performing Location: [address] [address]. DEPARTMENT OF PATHOLOGY AND LABORATORY MEDICINE [place], [place] [address] [facility] Work Phone: TSH without Reflexon 021 TSH Qn 1.005 u[IU]/mL 0.465 - 4.680 u[IU]/mL [facility] Work Phone: Test Performed by [facility], [facility] [place] [address] [facility] Work Phone: Thyroid Stim. Hormoneon 09-20 Thyroid Stim. Hormone 1.005 u[IU]/mL Normal 0.465-4.68 0 [facility] Comment on above: Performed By: #### B GLU #### [facility] [address] [place] [address] Glucose,Bedsideon 09-30-2020 Glucose [Mass/Vol] 355 mg/dL High 70-100 [facility] Comment on above: Result Comment: Test performed by glucose meter. Results may be 10%-15% lower than serum/plasma values. (CLIA ID [id number]) Performed By: #### B GLU #### [facility] [place] [address] [place] [address] Glucose [Mass/Vol] 388 mg/dL High 70-100 [facility] Comment on above: Result Comment: Test performed by glucose meter. Results may be 10%-15% lower than serum/plasma values. (CLIA ID [id number]) Performed By: #### B GLU #### [facility] [address] [place] [address] Glucose [Mass/Vol] 366 mg/dL High 70-100 [facility] Comment on above: Result Comment: Test performed by glucose meter. Results may be 10%-15% lower than serum/plasma values. (CLIA ID [id number]) Performed By: #### B GLU #### [facility] [address] [place] [address] Glucose [Mass/Vol] 288 mg/dL High 70-100 [facility] Comment on above: Result Comment: Test performed by glucose meter. Results may be 10%-15% lower than serum/plasma values. (CLIA ID [id number]) Performed By: #### B GLU #### [facility] [address] [place] [address] Glucose [Mass/Vol] 308 mg/dL High 70-100 [facility] Comment on above: Result Comment: Test performed by glucose meter. Results may be 10%-15% lower than serum/plasma values. (CLIA ID [id number]) Performed By: #### B GLU #### [facility] [address] [place] [address] Glucose [Mass/Vol] 379 mg/dL High 70-100 [facility] Comment on above: Result Comment: Test performed by glucose meter. Results may be 10%-15% lower than serum/plasma values. (CLIA ID [id number]) Performed By: #### B GLU #### [facility] [address] [place] [address] Glucose [Mass/Vol] 317 mg/dL High 70-100 [facility] Comment on above: Result Comment: Test performed by glucose meter. Results may be 10%-15% lower than serum/plasma values. (CLIA ID [id number]) Performed By: #### B GLU #### [facility] [address] [place] [address] Glucose [Mass/Vol] 343 mg/dL High 70-100 [facility] Comment on above: Result Comment: Test performed by glucose meter. Results may be 10%-15% lower than serum/plasma values. (CLIA ID [id number]) Performed By: #### B GLU #### [facility] [address] [place] [address] Glucose [Mass/Vol] 330 mg/dL High 70-100 [facility] Comment on above: Result Comment: Test performed by glucose meter. Results may be 10%-15% lower than serum/plasma values. (CLIA ID [id number]) Performed By: #### B GLU #### [facility] [address] [place] [facility] [address] POCT Glucoseon 09-30-2020 Glucose [Mass/Vol] 355 mg/dL High 70 - 100 mg/dL [facility] Work Phone: Comment on above: Test performed by gl ucose meter. Results may be 10%-15% lower than serum/plasma values. (CLIA ID [id number]) Interpretation and review of laboratory results Abnormal [facility] Work Phone: 1 22 Test [place] [address] [facility] Work Phone: 1 Glucose [Mass/Vol] 388 mg/dL High 70 - 100 mg/dL [facility] Work Phone: 1 Comment on above: Test performed by gl ucose meter. Results may be 10%-15% lower than serum/plasma values. (CLIA ID [id number]) Interpretation and review of laboratory results Abnormal [facility] Work Phone: 1 Test Performed by [employer], [place] [address] [employer] [employer] Work Phone: 1 Glucose [Mass/Vol] 366 mg/dL High 70 - 100 mg/dL [facility] Work Phone: 1 Comment on above: Test performed by gl ucose meter. Results may be 10%-15% lower than serum/plasma values. (CLIA ID [id number]) Interpretation and review of laboratory results Abnormal [facility] Work Phone: 1 Test Performed by [employer], [place] [address] [employer] Work Phone: 1 Glucose [Mass/Vol] 288 mg/dL High 70 - 100 mg/dL [employer] Work Phone: 1 Comment on above: Test performed by gl ucose meter. Results may be 10%-15% lower than serum/plasma values. (CLIA ID [id number]) Interpretation and review of laboratory results Abnormal [facility] [employer] Work Phone: 1 22 Test [place] [address] [employer] Work Phone: [phone] 22 Glucose [Mass/Vol] 308 mg/dL High 70 - 100 mg/dL [facility] Work Phone: 1 Comment on above: Test performed by gl ucose meter. Results may be 10%-15% lower than serum/plasma values. (CLIA ID [id number]) Interpretation and review of laboratory results Abnormal [facility] Work Phone: [phone] Test Performed by [employer], [place] [address] [employer] Work Phone: [phone] Glucose [Mass/Vol] 379 mg/dL High 70 - 100 mg/dL [employer] Work Phone: [phone] Comment on above: Test performed by gl ucose meter. Results may be 10%-15% lower than serum/plasma values. (CLIA ID [id number]) Interpretation and review of laboratory results Abnormal [employer] Work Phone: [phone] Test Performed by [employer], [facility] [place] [address] [employer] Work Phone: [phone] Glucose [Mass/Vol] 317 mg/dL High 70 - 100 mg/dL [employer] Work Phone: 1 Comment on above: Test performed by gl ucose meter. Results may be 10%-15% lower than serum/plasma values. (CLIA ID [id number]) Interpretation and review of laboratory results Abnormal [employer] Work Phone: [phone] Test Performed by [employer], [place] [address] [employer] Work Phone: [phone] Glucose [Mass/Vol] 343 mg/dL High 70 - 100 mg/dL [employer] Work Phone: 1 Comment on above: Test performed by gl ucose meter. Results may be 10%-15% lower than serum/plasma values. (CLIA ID [id number]) Interpretation and review of laboratory results Abnormal [employer] Work Phone: [phone] Test Performed by [employer], [place] [address] [employer] Work Phone: [phone] Glucose [Mass/Vol] 330 mg/dL High 70 - 100 mg/dL [employer] Work Phone: [phone] Comment on above: Test performed by gl ucose meter. Results may be 10%-15% lower than serum/plasma values. (CLIA ID [id number]) Interpretation and review of laboratory results Abnormal [employer] Work Phone: Test Performed by [employer], [address] [place] [address] [facility] Work Phone: Surgical Pathologyon 021 Surgical Pathology [id number] [facility] PATHOLOGY AND LABORATORY MEDICINE [address] [place] [address] [phone] FINAL SURGICAL PATHOLOGY REPORT NAME: DAMEON POTTER : 1955 65 Y F BILLING NO.: [id number] LOCATION: [place] [address] PROCEDURE 09/30/2020 DATE: SURGEON: CUAUHTEMOC STUBBS MD [...] FIGO Stage: II Comment(s): Pending MMR IHC PRODUCTION SUPERVISOR TRAINEE TUMOR BLOCK(S): A5 JAW/JAW Intradepartmental Consultation: HERNAN [...] or lesions are identified in the ovaries. Web Marketing Analyst sections of the specimen are submitted as follows: Cassette Summary: A1) Anterior cervix. A2-A4) Anterior endomyometrium. A5) Posterior cervix. A6-A10) Web Marketing Analyst sections of tumor with areas of [...] characteristics determined by the clinical laboratories of [facility]. They have not been cleared by the US Food and Drug Administration (FDA). The FDA has determined that such clearance or approval is not necessary. All the above immunostains were performed on paraffin embedded tissue. Appropriate positive and negative controls (where applicable) were run in parall (more content not included)... Normal [facility] Basic Metabolic Panelon 03-0 Anion gap [Moles/Vol] 8 mmol/L Normal 3-13 [facility] Comment on above: Performed By: #### B GLU #### [facility] [address] [place] [address] Calcium [Mass/Vol] 8.8 mg/dL Normal 8.4-10.4 [facility] Comment on above: Performed By: #### B GLU #### [facility] [address] [place] [address] CO2 [Moles/Vol] 24 mmol/L Normal 22-30 [facility] Comment on above: Performed By: #### B GLU #### [facility] [address] [place], [place] Creatinine [Mass/Vol] 0.56 mg/dL Normal 0.52-1.25 [facility] Comment on above: Performed By: #### B GLU #### [facility] [address] [place], [place] eGFR OTHER > 90.0 Normal >60 [facility] Comment on above: Result Comment: KDIG [...] secretion. Performed By: #### B GLU #### [facility] [address] [place], [place] GFR/1.73 sq M.predicted among blacks MDRD (S/P/Bld) [Vol rate/Area] mL/min/{1.73_m2} Normal >60 [facility] Comment on above: Performed By: #### B GLU #### [facility] [address] [place], [place] Glucose [Mass/Vol] 334 mg/dL High 70-100 [facility] Comment on above: Performed By: #### B GLU #### [place] [address] [address] [place], [place] Urea nitrogen [Mass/Vol] 14 mg/dL Normal 7-20 [facility] Comment on above: Performed By: #### B GLU #### [place] [address] [address] [place], [place] Chloride [Moles/Vol] 105 mmol/L Normal 98-107 [facility] Comment on above: Performed By: #### B GLU #### [facility] [address] [place], [place] Potassium [Moles/Vol] 4.3 mmol/L Normal 3.5-5.1 [facility] Comment on above: Performed By: #### B GLU #### [facility] [address] [place], [place] Sodium [Moles/Vol] 136 mmol/L Normal 135-145 [facility] Comment on above: Performed By: #### B GLU #### [facility] [address] [place], [place] Anion gap [Moles/Vol] 8 mmol/L 3 - 13 mmol/L [facility] Work Phone: Calcium [Mass/Vol] 8.8 mg/dL 8.4 - 10. 4 mg/dL [facility] Work Phone: Chloride [Moles/Vol] 105 mmol/L 98 - 10 7 mmol/L [facility] Work Phone: CO2 [Moles/Vol] 24 mmol/L 22 - 30 mmol/L [facility] Work Phone: Creatinine [Mass/Vol] 0.56 mg/dL 0.52 - 1.25 mg/dL [facility] Work Phone: EGFR IF NonAfrican Colombian >90.0 >60 mL/min [facility] Work Phone: Comment on above: KDIGO guidelines [...] MDRD (S/P/Bld) [Vol rate/Area] mL/min/{1.73_m2} >60 mL/min [facility] Work Phone: [phone] Glucose [Mass/Vol] 334 mg/dL High 70 - 100 mg/dL [facility] Work Phone: Interpretation and review of laboratory results Abnormal [facility] Work Phone: Potassium [Moles/Vol] 4.3 mmol/L 3.5 - 5.1 mmol/L [facility] Work Phone: Sodium [Moles/Vol] 136 mmol/L 135 - 145 mmol/L [facility] Work Phone: 1 Urea nitrogen [Mass/Vol] 14 mg/dL 7 - 20 mg/dL [facility] Work Phone: [phone] Test Performed by [employer], [address] [place] [id number] [place], [place] [address] Work Phone: [phone] Hemoglobin AND Hematocriton 09-23-2020 Hematocrit (Bld) [Volume fraction] 38.0 % Normal 35.0-47.0 [facility] Comment on above: Performed By: #### B GLU #### [facility] [address] [place] [phone] Hemoglobin (Bld) [Mass/Vol] 12.7 g/dL Normal 11.7-16.0 [facility] Comment on above: Performed By: #### B GLU #### [employer] [address] [place] [phone] Hemoglobin and Hematocrit, B loodon 09-23-2020 Hematocrit (Bld) [Volume fraction] 38.0 % 35 - 47 % [facility] Work Phone: [phone] Hemoglobin (Bld) [Mass/Vol] 12.7 g/dL 11.7 - 16 g/dL [facility] Work Phone: [phone] Test Performed by [employer], [address] [place] [id number] [place], [place] [address] Work Phone: TS GELon 09-23-2020 TS GEL ABO Group: A Rh, Gel: POS Antibody Screen Gel: NEG Normal [employer] Comment on above: Performed By: #### B GLU #### [facility] [address] [place] [address] TYPE AND SCREENon 09-23-2020 Sodium [Moles/Vol] A [employer] Work Phone: Sodium [Moles/Vol] Negative [employer] Work Phone: Sodium [Moles/Vol] Positive [employer] Work Phone: Test Performed by [employer], [address] [place] [address] [employer] Work Phone: ANES POSTPROC EVALon 021 ANES POSTPROC EVAL HNO ID: [id number] Author: Toshia Castillo Service: Anesthesiology Author Type: Physician Type: Anesthesia Postprocedure Evaluation Filed: 09/03/2020 9:43 AM Note Text: POST ANESTHESIA EVALUATION NOTE : 1955 Procedure Summary Date: 09/03/20 Room / Location: [address] Anesthesia Start: 8 Anesthesia Stop: 844 [...] September 03, 2020 TIME: 9:43 AM CSN: [id number] Normal [facility] ANES PRE-OPon 09-03-2020 ANES PRE-OP HNO ID: [id number] Author: Toshia Castillo Service: Anesthesiology Author Type: [...] Consent obtained from: guardian / power of attorney law clerk.Patient / Surrogate agrees to blood products: blood [...] September 03, 2020 TIME: 7:14 AM CSN: [id number] [facility] NURSING PROGon 09-03-2020 NURSING PROG HNO ID: [id number] Author: Radha MtzRn) VALENTÍN Brownlee Service: ? [...] (5' 6") 127 kg (280 lb) Normal [facility] OPERATIVE NOon 09-03-2020 OPERATIVE NO HNO ID: [id number] Author: Eric Butt Service: Gynecology Author Type: Physician Type: Operative Report Filed: 09/03/2020 8:54 AM Note Text: MANIPULATOR OPERATOR OPERATIVE/PROCEDURE REPORT LOG ID: [id number] Surgery/Procedure Date: 09/03/2020 Incision/Procedure Start Time: 812 Incision Close/Procedure End Time: 08 Surgeon(s)/Procedural ist(s) and House Worker General(s): Surgeon(s) and Role: * Eric Butt - [...] 03, 2020 TIME: 8:50 AM PAGER/CONTACT #: [facility] SURGICAL PATHOLOGYon 021 CASE REPORT [facility] Comment on above: Order Comment: Speci men Type: TISSUE SPECIMEN Result Comment: Surg ical Pathology Report Case: [id number] Authorizing Provider: Eric Butt Collected: 09/03/2020 08:30 AM Ordering Location: [facility] Received: 09/06/2020 09:29 AM Pathologist: Rose Urena MD Specimen: ENDOMETRIUM CURETTINGS, UTERINE MASS AND EMC Performed By: #### S #### [facility] CLIA [id number] [address] [place] [address] CLINICAL HISTORY POST-MENOPAUSAL BLEEDING. ATYPICAL SQUAMOUS CELL CHANGES CERVIX OF UNDETERMINED SIGNIFICANCE FAVOR DYSPLASIA. [facility] Comment on above: Order Comment: Speci men Type: TISSUE SPECIMEN Performed By: #### S #### [facility] CLIA [id number] [address] [place] [address] DIAGNOSIS COMMENT [facility] Comment on above: Order Comment: Speci men Type: TISSUE SPECIMEN Result Comment: A p5 3 immunostain shows wild-type staining. MSI testing will be performed and separately reported. This case was reviewed at the [facility] Gynecologic Pathology Consensus Conference on 09/09/2020 and the above diagnosis reflects the consensus opinion of those present. Laboratory Developed Test (LDT) Disclaimer: Performance characteristics of immunohistochemical, immunofluorescent and chromogenic in-situ hybridization tests have been determined by the performing laboratory within [facility]???s [facility] [place] [facility], [facility], or [facility]) in a manner consistent with CLIA requirements. One or more of these tests have not been cleared or approved by the FDA. [facility] is regulated under CLIA as qualified to perform high-complexity testing. These tests are used for clinical purposes. They should not be regarded as investigational or for research. Positive and negative controls stain appropriately. Performed By: #### S #### [facility] CLIA [id number] [address] [place] [address] FINAL DIAGNOSIS [facility] Comment on above: Order Comment: Speci men Type: TISSUE SPECIMEN Result Comment: A. E ndometrium, curettage Endometrial adenocarcinoma, endometrioid type FIGO grade 2. -The tumor, in part, involves an adenomyoma. See comment. Performed By: #### S #### [facility] CLIA [id number] [address] [place] [address] FINAL PERFORMING LAB Normal [facility] Comment on above: Order Comment: Speci men Type: TISSUE SPECIMEN Result Comment: Diag nostic interpretation performed at [facility], [address] [place] [address] CLIA# [id number] [employer] Supervisor: Stanford Peña M.D. Performed By: #### S #### [facility] CLIA [id number] [address] [place] [address] GROSS DESCRIPTION Normal [facility] Comment on above: Order Comment: Speci men Type: TISSUE SPECIMEN Result Comment: A. E NDOMETRIUM CURETTINGS. Received in formalin labeled uterine mass and EMC are multiple white fragments of tissue admixed with red-brown hemorrhagic material aggregating to 5.1 x 4.1 x 1.2 cm. The specimens are totally submitted in formalin in five cassettes. KVB/kls Gross examination performed at [facility], [address] [place] [address] CLIA# [id number] Performed By: #### S #### [facility] CLIA [id number] [address] [place] [address] PROGRESSon 09-02-2020 PROGRESS HNO ID: [id number] Author: Laura Brown) Anh Service: Anesthesiology Author [...] proceed with planned procedure on 09/03/20. Normal [facility] Bas Metab 2000 Pnl SerPlon 0 09-01-2020 Anion gap [Moles/Vol] 9 mmol/L Normal 9-18 [facility] Comment on above: Order Comment: Speci men Type: BLOOD SPECIMEN Performed By: #### 2 4321-2 ####[facility]ORY[facility]IA [id number] [place] [address] Calcium [Mass/Vol] 9.0 mg/dL Normal 8.5-10.2 [facility] Comment on above: Order Comment: Speci men Type: BLOOD SPECIMEN Performed By: #### 2 4321-2 ####[facility]ORY[facility] [id number] [place] [address] Chloride [Moles/Vol] 106 mmol/L High 97-105 [facility] Comment on above: Order Comment: Speci men Type: BLOOD SPECIMEN Performed By: #### 2 4321-2 ####[facility]ORY[facility]IA [id number] [place] [address] CO2 [Moles/Vol] 23 mmol/L Normal 22-30 [facility] Comment on above: Order Comment: Speci men Type: BLOOD SPECIMEN Performed By: #### 2 4321-2 ####[facility]ORY[facility] [id number] [place] [address] Creatinine [Mass/Vol] 0.70 mg/dL Normal 0.58-0.96 [facility] Comment on above: Order Comment: Speci men Type: BLOOD SPECIMEN Performed By: #### 2 4321-2 ####[facility] [id number] [place] [address] GFR/1.73 sq M.predicted MDRD (S/P/Bld) [Vol rate/Area] mL/min/{1.73_m2} Normal [facility] Comment on above: [...] actual GFR. Performed By: #### 2 4321-2 ####[facility]ORY[facility] [id number] [place] [address] Glucose [Mass/Vol] 328 mg/dL High 74-99 [facility] Comment on above: Order Comment: Speci men Type: BLOOD SPECIMEN Result Comment: The [place] Diabetes Association (ADA) provides guidance for cutoff [...] Standards of Medical Care in Diabetes 2016, [place] Diabetes Association. Diabetes Care. 2016.39(Suppl 1). Performed By: #### 2 4321-2 ####[facility]ORY[facility]IA [id number] [place] [address] Potassium [Moles/Vol] 4.4 mmol/L Normal 3.7-5.1 [facility] Comment on above: Order Comment: Speci men Type: BLOOD SPECIMEN Performed By: #### 2 4321-2 ####[facility]ORY[facility]IA [id number] [place] [address] Sodium [Moles/Vol] 138 mmol/L Normal 136-144 [facility] Comment on above: Order Comment: Speci men Type: BLOOD SPECIMEN Performed By: #### 2 4321-2 ####[facility]ORY[facility]IA [id number] [place] [address] Urea nitrogen [Mass/Vol] 13 mg/dL Normal 7-21 [facility] Comment on above: Order Comment: Speci men Type: BLOOD SPECIMEN Performed By: #### 2 4321-2 ####[facility]ORY[facility]IA [id number] [place] [address] CBC Pnl Bld Autoon Erythrocyte distribution width (RBC) [Ratio] 12.8 % Normal 11.5-15.0 [facility] Comment on above: Order Comment: Speci men Type: BLOOD SPECIMEN Performed By: #### 5 8410-2 ####[facility]ORY[facility] [id number] [place] [address] Hematocrit (Bld) [Volume fraction] 40.2 % Normal 36.0-46.0 [facility] Comment on above: Order Comment: Speci men Type: BLOOD SPECIMEN Performed By: #### 5 8410-2 ####[facility]ORY[facility] [id number] [place] [address] Hemoglobin (Bld) [Mass/Vol] 13.2 g/dL Normal 11.5-15.5 [facility] Comment on above: Order Comment: Speci men Type: BLOOD SPECIMEN Performed By: #### 5 8410-2 ####[facility]ORY[facility]IA [id number] [place] [address] MCH (RBC) [Entitic mass] 29.7 pg Normal 26.0-34.0 [facility] Comment on above: Order Comment: Speci men Type: BLOOD SPECIMEN Performed By: #### 5 8410-2 ####[facility]ORY[facility] [id number] [place] [address] MCHC (RBC) [Mass/Vol] 32.8 g/dL Normal 30.5-36.0 [facility] Comment on above: Order Comment: Speci men Type: BLOOD SPECIMEN Performed By: #### 5 8410-2 ####[facility]ORY[facility]IA [id number] [place] [address] MCV (RBC) [Entitic vol] 90.3 fL Normal 80.0-100.0 [facility] Comment on above: Order Comment: Speci men Type: BLOOD SPECIMEN Performed By: #### 5 8410-2 ####[facility]ORYCLIA [id number] [place] [address] Nucleated RBC (Bld) [#/Vol] 10*3/uL Normal <0.01 [facility] Comment on above: Order Comment: Speci men Type: BLOOD SPECIMEN Performed By: #### 5 8410-2 ####[facility]ORY[facility] [id number] [place] [address] Platelet mean volume (Bld) [Entitic vol] 13.3 fL High 9.0-12.7 [facility] Comment on above: Order Comment: Speci men Type: BLOOD SPECIMEN Performed By: #### 5 8410-2 ####[facility]ORYCLIA [id number] [place] [address] Platelets (Bld) [#/Vol] 194 10*3/uL Normal 150-400 [facility] Comment on above: Order Comment: Speci men Type: BLOOD SPECIMEN Performed By: #### 5 8410-2 ####[facility]ORY[facility]IA [id number] [place] [address] RBC (Bld) [#/Vol] 4.45 10*6/uL Normal 3.90-5.20 [facility] Comment on above: Order Comment: Speci men Type: BLOOD SPECIMEN Performed By: #### 5 8410-2 ####[facility]ORYCLIA [id number] [place] [address] WBC (Bld) [#/Vol] 8.33 10*3/uL Normal 3.70-11.00 [facility] Comment on above: Order Comment: Speci men Type: BLOOD SPECIMEN Performed By: #### 5 8410-2 ####[facility]ORYCLIA [id number] [place] [address] HGB A1Con 09-01-2020 Average glucose Estimated from glycated hemoglobin mass conc (Bld) 246 mg/dL Normal [facility] Comment on above: Order Comment: Speci men Type: BLOOD SPECIMEN Result Comment: eAG: (Estimated average glucose) is a calculated value from HgbA1c and is enrollment eligibility representative of the average blood glucose level in the last 2-3 month period. Performed By: #### H BA1C #### [facility] CLIA [id number] [address] [place] [address] HbA1c (Bld) [Mass fraction] 10.2 % High 4.3-5.6 [facility] Comment on above: Order Comment: Speci men Type: BLOOD SPECIMEN Result Comment: Lindsey ican Diabetes Association guidelines indicate that patients with HgbA1c in the range 5.7-6.4% are at increased risk for development of diabetes, and intervention by lifestyle modification may be beneficial. HgbA1c greater or equal to 6.5% is considered diagnostic of diabetes. Performed By: #### H BA1C #### [facility] CLIA [id number] [address] [place] [id number] HISTORY PHYSICALon HISTORY PHYSICAL HNO ID: [id number] Author: Laura Brown) Anh Service: ? Author [...] fevers. Neurological: No history of TIA's, stroke, FARM EQUIPMENT ENGINEER tumor, impaired sensorium, hemiplegia, paraplegia or [...] ago and she had testing done at [facility]- she states she had an Echo 2 years ago and was found to have aortic stenosis. Denies CP or SOB RED DOT: Patient becomes short of breath with activity- mets 2.75, history of aortic stenosis (I do not see echo in [facility]), says she saw cardiology with [facility] about 2 years ago, uncontrolled DM with hgbA1C 10.2. May want to review with anesthesia Assessment/Plan PLAN Planned Procedure: Procedure(s): HYSTEROSCOPY, DANDC WITH TRUCLEAR (N/A) The Following Tests/Procedures Have Been Initiated: CBC, BMP, HgbA1C ordered by AMPOULE SEALER Instructions Given to Patient: Instructions located in the after visit summary. Patient given verbal and written preop instructions and voices comprehension and compliance. SIGNATURE: Laura Kamara, INSURANCE CLAIM AUDITOR.SAMUEL PATIENT NAME: Dameon Potter DATE: September 01, 2020 TIME: 8:20 AM PAGER/CONTACT #: Joe [facility] PROGRESSon 09-01-2020 PROGRESS HNO ID: [id number] Author: Laura Kamara Service: Anesthesiology Author Type: Nurse Practitioner Type: Progress Notes Filed: 09/01/2020 2:26 PM Note Text: RED DOT: Patient becomes short of breath with activity- mets 2.75, history of aortic stenosis (I do not see echo in epic), says she saw cardiology with [facility] about 2 years ago, uncontrolled DM with hgbA1C 10.2. May want to review with anesthesia Normal [facility] Maria Del Carmen 08-27-2020 RAMIN Telephone (AKPRAD) DAMEON POTTER ([id number]) 1955 F Date Time Provider Department 08/27/20 BEVERLY SNELL (INSURANCE CLAIM AUDITOR, SAMUEL) BLUE During your visit today, we [...] E AND PRE-OPERATIVE COVID [SQPOCOVD] Order #: [id number] FUTURE Prescriptions as of 08/27/2020 Sig: OLMESARTAN [...] intramuscularly* FLUTICASONE PROPIONATE 50 MCG* Use 1 [place] in the nose as ne* HYDROCHLOROTHIAZIDE [...] Status:Closed by BEVERLY SNELL CNP on 08/27/20 [facility] HOSPon 08-27-2020 HOSP Patient:Dameon Potter MRN: [...] presenting for postmenopausal bleeding. States just after [place]st in 2019 she had a week of [...] fevers. Neurological: No history of TIA's, stroke, FARM EQUIPMENT ENGINEER tumor, impaired sensorium, hemiplegia, paraplegia or [...] ago and she had testing done at [facility]- she states she had an Echo 2 years ago and was found to have aortic stenosis. Denies CP or SOB RED DOT: Patient becomes short of breath with activity- mets 2.75, history of aortic stenosis (I do not see echo in epic), says she saw cardiology with [facility] about 2 years ago, uncontrolled DM with hgbA1C 10.2. May want to review with anesthesia Assessment/Plan PLAN Planned Procedure: Procedure(s): HYSTEROSCOPY, DANDC WITH TRUCLEAR (N/A) The Following Tests/Procedures Have Been Initiated: CBC, BMP, HgbA1C ordered by AMPOULE SEALER Instructions Given to Patient: Instructions located in [...] in epic), says she saw cardiology with [facility] about 2 years ago, uncontrolled DM [...] MD September 03, 2020 7:56 AM Normal [facility] EKG 12 Leadon 12-28-2017 [facility], [facility] Incoming Cardiology Results From [facility] - 12/28/2017 2:19 PM EDT [facility] Test Date: 2017-12-27 Pat Name: Dameon Potter Department: 04 Room: Gender: F Pin Puller: DAYAMIKristen WHITEB: 1955 Requested By: PAKO POOLE Order Number: [id number] Reading MD: Michael Martinez Measurements Intervals [place] Rate: 74 P: 19 WI: 168 QRS: -27 QRSD: 102 T: 71 QT: 392 QTc: 435 Interpretive Statements SINUS RHYTHM Probable LEFT VENTRICULAR HYPERTROPHY Electronically Signed On 12-28-2017 14:18:17 EDT by Michael XAVIER Work Phone: EKG 12 LeadOrdered By: Bridget Golden on 12-28-2017 [facility], [facility] Incoming Cardiology Results From [facility] - 12/28/2017 2:19 PM EDT [facility] Test Date: 2017-12-27 Pat Name: Dameon Potter Department: 04 Room: Gender: F Pin Puller: SARAH : 1955 Requested By: PAKO POOLE Order Number: [id number] Reading : Michael Martinez Measurements Intervals [place] Rate: 74 P: 19 WI: 168 QRS: -27 QRSD: 102 T: 71 QT: 392 QTc: 435 Interpretive Statements SINUS RHYTHM Probable LEFT VENTRICULAR HYPERTROPHY Electronically Signed On 12-28-2017 14:18:17 EDT by Michael XAVIER Work Phone: [facility], [facility] Incoming Cardiology Results From [facility] - 12/28/2017 2:19 PM EDT CORD:USE Cord Blood Bank [facility] Test Date: 2017-12-27 Pat Name: Dameon Potter Department: 04 Room: Gender: F Pin Puller: SARAH WHITEB: 1955 Requested By: PAKO POOLE Order Number: [id number] Reading MD: Michael Martinez Measurements Intervals [place] Rate: 74 P: 19 WI: 168 QRS: -27 QRSD: 102 T: 71 QT: 392 QTc: 435 Interpretive Statements SINUS RHYTHM Probable LEFT VENTRICULAR HYPERTROPHY Electronically Signed On 12-28-2017 14:18:17 EDT by Michael Martinez [employer] Work Phone: No Panel InformationOrdered By: Bridget Golden on 12-28-2017 [facility] Test Date: 2017-12-27 Pat Name: Dameon Potter Department: 04 Room: Gender: F Pin Puller: SARAH WHITEB: 1955 Requested By: PAKO POOLE Order Number: [id number] Reading MD: Michael Martinez Measurements Intervals [place] Rate: 74 P: 19 WI: 168 QRS: -27 QRSD: 102 T: 71 QT: 392 QTc: 435 Interpretive Statements SINUS RHYTHM Probable LEFT VENTRICULAR HYPERTROPHY Electronically Signed On 12-28-2017 14:18:17 EDT by Michael Martinez [employer] Work Phone: [facility] Work Phone: No Panel Informationon 12-28 Result, Unknown Provider - 12/28/2017 [facility] Test Date: 2017-12-27 Pat Name: Dameon Potter Department: 04 Room: Gender: F Pin Puller: SARAH : 1955 Requested By: PAKO POOLE Order Number: [id number] Reading MD: Michael Martinez Measurements Intervals [place] Rate: 74 P: 19 WI: 168 QRS: -27 QRSD: 102 T: 71 QT: 392 QTc: 435 Interpretive Statements SINUS RHYTHM Probable LEFT VENTRICULAR HYPERTROPHY Electronically Signed On 12-28-2017 14:18:17 EDT by Michael Martinez [employer] Work Phone: Otheron 12-28-2017 [facility] Test Date: 2017-12-27 Pat Name: Dameon Potter Department: 04 Room: Gender: F Pin Puller: SARAH WHITEB: 1955 Requested By: PAKO POOLE Order Number: [id number] Reading MD: Michael Martinez Measurements Intervals [place] Rate: 74 P: 19 WI: 168 QRS: -27 QRSD: 102 T: 71 QT: 392 QTc: 435 Interpretive Statements SINUS RHYTHM Probable LEFT VENTRICULAR HYPERTROPHY Electronically Signed On 12-28-2017 14:18:17 EDT by [place], [place] [facility] Incoming Cardiology Results From [facility] - 12/28/2017 2:19 PM EDT [facility] Test Date: 2017-12-27 Pat Name: Dameon Potter Department: 04 Room: Gender: F Pin Puller: SARAH WHITEB: 1955 Requested By: PAKO POOLE Order Number: [id number] Reading MD: Michael Martniez Measurements Intervals [place] Rate: 74 P: 19 WI: 168 QRS: -27 QRSD: 102 T: 71 QT: 392 QTc: 435 Interpretive Statements SINUS RHYTHM Probable LEFT VENTRICULAR HYPERTROPHY Electronically Signed On 12-28-2017 14:18:17 EDT by Michael [facility] Test Date: 2017-12-27 Pat Name: Dameon Potter Department: 04 Room: Gender: F Pin Puller: SARAH WHITEB: 1955 Requested By: PAKO POOLE Order Number: [id number] Reading MD: Michael Martinez Measurements Intervals [place] Rate: 74 P: 19 WI: 168 QRS: -27 QRSD: 102 T: 71 QT: 392 QTc: 435 Interpretive Statements SINUS RHYTHM Probable LEFT VENTRICULAR HYPERTROPHY Electronically Signed On 12-28-2017 14:18:[address] [facility], [place] No Panel Information [facility] Vital Signs Date Time Vital Sign Value Performing Clinician Facility 05-19-2025 08:31-0400 Body temperature 98.1 [degF] Nettie Rhodes DO Work Phone: [facility] 05-19-2025 08:31-0400 Diastolic blood pressure 84 mm[Hg] Nettie Meagan DO Work Phone: [facility] 05-19-2025 08:31-0400 Heart rate 63 /min Nettie Meagan DO Work Phone: [facility] 05-19-2025 08:31-0400 Respiratory rate 16 /min Nettie Meagan DO Work Phone: [facility] 05-19-2025 08:31-0400 SaO2% (BldA) [Mass fraction] 97 % Nettie Meagan DO Work Phone: [facility] 05-19-2025 08:31-0400 Systolic blood pressure 161 mm[Hg] Nettie Meagan DO Work Phone: [facility] 05-14-2025 01:20-0400 Body mass index (BMI) [Ratio] 33.27 kg/m2 Nettie Meagan DO Work Phone: [facility] 05-14-2025 01:20-0400 Body weight 93.5 kg Nettie Meagan DO Work Phone: [facility] 05-13-2025 13:19-0400 Body height 167.6 cm Nettie Meagan DO Work Phone: [facility] 12-22-2024 12:30-0400 Diastolic blood pressure 109 mm[Hg] Cuauhtemoc Stubbs MD Work Phone: [facility] 12-22-2024 12:30-0400 Heart rate 53 /min Cuauhtemoc Stubbs MD Work Phone: [facility] 12-22-2024 12:30-0400 SaO2% (BldA) [Mass fraction] 98 % Cuauhetmoc Stubbs MD Work Phone: [facility] 12-22-2024 12:30-0400 Systolic blood pressure 146 mm[Hg] Cuauhtemoc Stubbs MD Work Phone: [facility] 12-22-2024 11:45-0400 Respiratory rate 16 /min Cuauhtemoc Stubbs MD Work Phone: [facility] 12-22-2024 08:19-0400 Body height 167.6 cm Cuauhtemoc Stubbs MD Work Phone: [facility] 12-22-2024 08:19-0400 Body mass index (BMI) [Ratio] 34.86 kg/m2 Cuauhtemoc Stubbs MD Work Phone: [facility] 12-22-2024 08:19-0400 Body temperature 98.01 [degF] Cuauhtemoc Stubbs MD Work Phone: [facility] 12-22-2024 08:19-0400 Body weight 97.98 kg Cuauhtemoc Stubbs MD Work Phone: [facility] 12-08-2024 13:30-0400 Diastolic blood pressure 96 mm[Hg] Cuauhtemoc Stubbs MD Work Phone: [facility] 12-08-2024 13:30-0400 Systolic blood pressure 172 mm[Hg] Cuauhtemoc Stubbs MD Work Phone: [facility] 12-08-2024 12:50-0400 Body height 167.6 cm Cuauhtemoc Stubbs MD Work Phone: [facility] 12-08-2024 12:50-0400 Body mass index (BMI) [Ratio] 35.69 kg/m2 Cuauhtemoc Stubbs MD Work Phone: [facility] 12-08-2024 12:50-0400 Body weight 100.25 kg Cuauhtemoc Stubbs MD Work Phone: [facility] 12-08-2024 12:50-0400 Heart rate 72 /min Cuauhtemoc Stubbs MD Work Phone: [facility] 12-08-2024 12:50-0400 SaO2% (BldA) [Mass fraction] 98 % Cuauhtemoc Stubbs MD Work Phone: [facility] 11-25-2024 10:44-0400 Body mass index (BMI) [Ratio] 35.83 kg/m2 Araseli Can INSURANCE CLAIM AUDITOR - OPTICAL ADVISOR Work Phone: [facility] 11-25-2024 10:44-0400 Body temperature 97.81 [degF] Araseli Can INSURANCE CLAIM AUDITOR - OPTICAL ADVISOR Work Phone: [facility] 11-25-2024 10:44-0400 Body weight 100.7 kg Araseli Can INSURANCE CLAIM AUDITOR - OPTICAL ADVISOR Work Phone: [facility] 11-25-2024 10:44-0400 Diastolic blood pressure 73 mm[Hg] Araseli Can INSURANCE CLAIM AUDITOR - OPTICAL ADVISOR Work Phone: [facility] 11-25-2024 10:44-0400 Heart rate 49 /min Araseli Can INSURANCE CLAIM AUDITOR - OPTICAL ADVISOR Work Phone: [facility] 11-25-2024 10:44-0400 Respiratory rate 16 /min Araseli Can INSURANCE CLAIM AUDITOR - OPTICAL ADVISOR Work Phone: [facility] 11-25-2024 10:44-0400 SaO2% (BldA) [Mass fraction] 98 % Araseli Can INSURANCE CLAIM AUDITOR - OPTICAL ADVISOR Work Phone: [facility] 11-25-2024 10:44-0400 Systolic blood pressure 144 mm[Hg] Araseli Can INSURANCE CLAIM AUDITOR - OPTICAL ADVISOR Work Phone: [facility] 11-18-2024 09:37-0400 Body mass index (BMI) [Ratio] 35.35 kg/m2 Araseli Can INSURANCE CLAIM AUDITOR - OPTICAL ADVISOR Work Phone: [facility] 11-18-2024 09:37-0400 Body temperature 97.2 [degF] Araseli Can INSURANCE CLAIM AUDITOR - OPTICAL ADVISOR Work Phone: [facility] 11-18-2024 09:37-0400 Body weight 99.34 kg Araseli Can INSURANCE CLAIM AUDITOR - OPTICAL ADVISOR Work Phone: [facility] 11-18-2024 09:37-0400 Diastolic blood pressure 68 mm[Hg] Araseli Can INSURANCE CLAIM AUDITOR - OPTICAL ADVISOR Work Phone: [facility] 11-18-2024 09:37-0400 Heart rate 72 /min Araseli Can INSURANCE CLAIM AUDITOR - OPTICAL ADVISOR Work Phone: [facility] 11-18-2024 09:37-0400 Respiratory rate 18 /min Araseli Can INSURANCE CLAIM AUDITOR - OPTICAL ADVISOR Work Phone: [facility] 11-18-2024 09:37-0400 SaO2% (BldA) [Mass fraction] 96 % Araseli Can INSURANCE CLAIM AUDITOR - OPTICAL ADVISOR Work Phone: [facility] 11-18-2024 09:37-0400 Systolic blood pressure 130 mm[Hg] Araseli Can INSURANCE CLAIM AUDITOR - OPTICAL ADVISOR Work Phone: [facility] 11-12-2024 08:48-0400 Body mass index (BMI) [Ratio] 33.93 kg/m2 Araseli Can INSURANCE CLAIM AUDITOR - OPTICAL ADVISOR Work Phone: [facility] 11-12-2024 08:48-0400 Body temperature 98.01 [degF] Araseli Can INSURANCE CLAIM AUDITOR - OPTICAL ADVISOR Work Phone: [facility] 11-12-2024 08:48-0400 Body weight 95.35 kg Araseli Can INSURANCE CLAIM AUDITOR - OPTICAL ADVISOR Work Phone: [facility] 11-12-2024 08:48-0400 Diastolic blood pressure 64 mm[Hg] Araseli Can INSURANCE CLAIM AUDITOR - OPTICAL ADVISOR Work Phone: [facility] 11-12-2024 08:48-0400 Heart rate 64 /min Araseli Can INSURANCE CLAIM AUDITOR - OPTICAL ADVISOR Work Phone: [facility] 11-12-2024 08:48-0400 Respiratory rate 16 /min Araseli Can INSURANCE CLAIM AUDITOR - OPTICAL ADVISOR Work Phone: [facility] 11-12-2024 08:48-0400 SaO2% (BldA) [Mass fraction] 97 % Araseli Can INSURANCE CLAIM AUDITOR - OPTICAL ADVISOR Work Phone: [facility] 11-12-2024 08:48-0400 Systolic blood pressure 128 mm[Hg] Araseli Can INSURANCE CLAIM AUDITOR - OPTICAL ADVISOR Work Phone: [facility] 11-10-2024 13:00-0400 Body mass index (BMI) [Ratio] 33.93 kg/m2 Araseli Can INSURANCE CLAIM AUDITOR - OPTICAL ADVISOR Work Phone: [facility] 11-10-2024 13:00-0400 Body temperature 98.4 [degF] Araseli Can INSURANCE CLAIM AUDITOR - OPTICAL ADVISOR Work Phone: [facility] 11-10-2024 13:00-0400 Body weight 95.35 kg Araseli Can INSURANCE CLAIM AUDITOR - OPTICAL ADVISOR Work Phone: [facility] 11-10-2024 13:00-0400 Diastolic blood pressure 72 mm[Hg] Araseli Can INSURANCE CLAIM AUDITOR - OPTICAL ADVISOR Work Phone: [facility] 11-10-2024 13:00-0400 Heart rate 61 /min Araseli Can INSURANCE CLAIM AUDITOR - OPTICAL ADVISOR Work Phone: [facility] 11-10-2024 13:00-0400 Respiratory rate 15 /min Araseli Can INSURANCE CLAIM AUDITOR - OPTICAL ADVISOR Work Phone: [facility] 11-10-2024 13:00-0400 SaO2% (BldA) [Mass fraction] 99 % Araseli Can INSURANCE CLAIM AUDITOR - OPTICAL ADVISOR Work Phone: [facility] 11-10-2024 13:00-0400 Systolic blood pressure 134 mm[Hg] Araseli Can INSURANCE CLAIM AUDITOR - OPTICAL ADVISOR Work Phone: [facility] 11-06-2024 10:10-0400 Body mass index (BMI) [Ratio] 34.38 kg/m2 Araseli Can INSURANCE CLAIM AUDITOR - OPTICAL ADVISOR Work Phone: [facility] 11-06-2024 10:10-0400 Body temperature 98.2 [degF] Araseli Can INSURANCE CLAIM AUDITOR - OPTICAL ADVISOR Work Phone: [facility] 11-06-2024 10:10-0400 Body weight 96.62 kg Araseli Can INSURANCE CLAIM AUDITOR - OPTICAL ADVISOR Work Phone: [facility] 11-06-2024 10:10-0400 Diastolic blood pressure 92 mm[Hg] Araseli Can INSURANCE CLAIM AUDITOR - OPTICAL ADVISOR Work Phone: [facility] 11-06-2024 10:10-0400 Heart rate 93 /min Araseli Can INSURANCE CLAIM AUDITOR - OPTICAL ADVISOR Work Phone: [facility] 11-06-2024 10:10-0400 Respiratory rate 15 /min Araseli Can INSURANCE CLAIM AUDITOR - OPTICAL ADVISOR Work Phone: [facility] 11-06-2024 10:10-0400 SaO2% (BldA) [Mass fraction] 99 % Araseli Can INSURANCE CLAIM AUDITOR - OPTICAL ADVISOR Work Phone: [facility] 11-06-2024 10:10-0400 Systolic blood pressure 131 mm[Hg] Araseli Can INSURANCE CLAIM AUDITOR - OPTICAL ADVISOR Work Phone: [facility] 11-05-2024 11:31-0400 Body temperature 97.5 [degF] Damon Vu MD Work Phone: [facility] 11-05-2024 11:31-0400 Diastolic blood pressure 71 mm[Hg] Damon Vu MD Work Phone: [facility] 11-05-2024 11:31-0400 Heart rate 82 /min Damon Vu MD Work Phone: [facility] 11-05-2024 11:31-0400 Respiratory rate 16 /min Damon Vu MD Work Phone: [facility] 11-05-2024 11:31-0400 SaO2% (BldA) [Mass fraction] 100 % Damon Vu MD Work Phone: [facility] 11-05-2024 11:31-0400 Systolic blood pressure 111 mm[Hg] Damon Vu MD Work Phone: [facility] 11-05-2024 05:39-0400 Body mass index (BMI) [Ratio] 35.19 kg/m2 Damon Vu MD Work Phone: [facility] 11-05-2024 05:39-0400 Body weight 98.88 kg Damon Vu MD Work Phone: [facility] 11-03-2024 10:33-0400 Body height 167.6 cm Damon Vu MD Work Phone: [facility] 05-07-2024 13:41-0400 Body temperature 97.9 [degF] Jerome Perdomo MD Work Phone: [facility] 05-07-2024 13:41-0400 Diastolic blood pressure 111 mm[Hg] Jerome Perdomo MD Work Phone: [facility] 05-07-2024 13:41-0400 Heart rate 73 /min Jerome Perdomo MD Work Phone: [facility] 05-07-2024 13:41-0400 Respiratory rate 16 /min Jerome Perdomo MD Work Phone: [facility] 05-07-2024 13:41-0400 Systolic blood pressure 183 mm[Hg] Jerome Perdomo MD Work Phone: [facility] 04-23-2024 11:30-0400 Body temperature 98.4 [degF] Jerome Perdomo MD Work Phone: [facility] 04-23-2024 11:30-0400 Diastolic blood pressure 77 mm[Hg] Jerome Perdomo MD Work Phone: [facility] 04-23-2024 11:30-0400 Heart rate 64 /min Jerome Perdomo MD Work Phone: [facility] 04-23-2024 11:30-0400 Respiratory rate 18 /min Jerome Perdomo MD Work Phone: [facility] 04-23-2024 11:30-0400 Systolic blood pressure 181 mm[Hg] Jerome Perdomo MD Work Phone: [facility] 04-09-2024 13:49-0400 Body temperature 97.9 [degF] Jerome Perdomo MD Work Phone: [facility] 04-09-2024 13:49-0400 Diastolic blood pressure 90 mm[Hg] Jerome Perdomo MD Work Phone: [facility] 04-09-2024 13:49-0400 Heart rate 69 /min Jerome Perdomo MD Work Phone: [facility] 04-09-2024 13:49-0400 Respiratory rate 18 /min Jerome Perdomo MD Work Phone: [facility] 04-09-2024 13:49-0400 Systolic blood pressure 168 mm[Hg] Jerome Perdomo MD Work Phone: [facility] 03-26-2024 15:03-0400 Body height 167.6 cm Lyric Walkerney INSURANCE CLAIM AUDITOR - OPTICAL ADVISOR Work Phone: [facility] 03-26-2024 15:03-0400 Body mass index (BMI) [Ratio] 41.21 kg/m2 Lyric Walkerney INSURANCE CLAIM AUDITOR - OPTICAL ADVISOR Work Phone: [facility] 03-26-2024 15:03-0400 Body weight 115.8 kg Lyric Cruz INSURANCE CLAIM AUDITOR - OPTICAL ADVISOR Work Phone: [facility] 03-26-2024 15:03-0400 Diastolic blood pressure 84 mm[Hg] Lyric BurtKinney INSURANCE CLAIM AUDITOR - OPTICAL ADVISOR Work Phone: [facility] 03-26-2024 15:03-0400 Heart rate 66 /min Lyric BurtKinney INSURANCE CLAIM AUDITOR - OPTICAL ADVISOR Work Phone: [facility] 03-26-2024 15:03-0400 Systolic blood pressure 132 mm[Hg] Lyric Cruz INSURANCE CLAIM AUDITOR - OPTICAL ADVISOR Work Phone: [facility] 03-26-2024 11:10-0400 Body temperature 98.01 [degF] Jerome Perdomo MD Work Phone: [facility] 03-26-2024 11:10-0400 Diastolic blood pressure 87 mm[Hg] Jerome Perdomo MD Work Phone: [facility] 03-26-2024 11:10-0400 Heart rate 61 /min Jerome Perdomo MD Work Phone: [facility] 03-26-2024 11:10-0400 Respiratory rate 16 /min Jerome Perdomo MD Work Phone: [facility] 03-26-2024 11:10-0400 Systolic blood pressure 164 mm[Hg] Jerome Perdomo MD Work Phone: [facility] 03-14-2024 15:05-0400 Body height 167.6 cm Christy Rizzo MD Work Phone: [facility] 03-14-2024 15:05-0400 Body mass index (BMI) [Ratio] 41.16 kg/m2 Christy Rizzo MD Work Phone: [facility] 03-14-2024 15:05-0400 Body weight 115.67 kg Christy Rizzo MD Work Phone: [facility] 03-12-2024 14:10-0400 Body temperature 97.81 [degF] Jerome Perdomo MD Work Phone: [facility] 03-12-2024 14:10-0400 Diastolic blood pressure 76 mm[Hg] Jerome Perdomo MD Work Phone: [facility] 03-12-2024 14:10-0400 Heart rate 80 /min Jerome Perdomo MD Work Phone: [facility] 03-12-2024 14:10-0400 Systolic blood pressure 135 mm[Hg] Jerome Perdomo MD Work Phone: [facility] 03-04-2024 15:15-0400 Body height 167.6 cm Anjana Frandy INSURANCE CLAIM AUDITOR - OPTICAL ADVISOR Work Phone: [facility] 03-04-2024 15:15-0400 Body mass index (BMI) [Ratio] 41.19 kg/m2 Anjana Frandy INSURANCE CLAIM AUDITOR - OPTICAL ADVISOR Work Phone: [facility] 03-04-2024 15:15-0400 Body weight 115.76 kg Anjana Frandy INSURANCE CLAIM AUDITOR - OPTICAL ADVISOR Work Phone: [facility] 03-04-2024 15:15-0400 Diastolic blood pressure 96 mm[Hg] Anjana Kingod INSURANCE CLAIM AUDITOR - OPTICAL ADVISOR Work Phone: [facility] 03-04-2024 15:15-0400 Heart rate 73 /min Anjana Frandy INSURANCE CLAIM AUDITOR - OPTICAL ADVISOR Work Phone: [facility] 03-04-2024 15:15-0400 Systolic blood pressure 200 mm[Hg] Anjana Kingod INSURANCE CLAIM AUDITOR - OPTICAL ADVISOR Work Phone: [facility] 02-27-2024 11:44-0400 Body temperature 97.5 [degF] Jerome Perdomo MD Work Phone: [facility] 02-27-2024 11:44-0400 Diastolic blood pressure 95 mm[Hg] Jerome Perdomo MD Work Phone: [facility] 02-27-2024 11:44-0400 Heart rate 80 /min Jerome Perdomo MD Work Phone: [facility] 02-27-2024 11:44-0400 Respiratory rate 18 /min Jerome Perdomo MD Work Phone: [facility] 02-27-2024 11:44-0400 Systolic blood pressure 202 mm[Hg] Jerome Perdomo MD Work Phone: [facility] 02-13-2024 13:43-0400 Body temperature 97.81 [degF] Jerome Perdomo MD Work Phone: [facility] 02-13-2024 13:43-0400 Diastolic blood pressure 96 mm[Hg] Jerome Perdomo MD Work Phone: [facility] 02-13-2024 13:43-0400 Heart rate 70 /min Jerome Perdomo MD Work Phone: [facility] 02-13-2024 13:43-0400 Respiratory rate 16 /min Jerome Perdomo MD Work Phone: [facility] 02-13-2024 13:43-0400 Systolic blood pressure 185 mm[Hg] Jerome Perdomo MD Work Phone: [facility] 01-30-2024 11:45-0400 Body temperature 98.4 [degF] Jerome Perdomo MD Work Phone: [facility] 01-30-2024 11:45-0400 Diastolic blood pressure 97 mm[Hg] Jerome Perdomo MD Work Phone: [facility] 01-30-2024 11:45-0400 Heart rate 74 /min Jerome Perdomo MD Work Phone: [facility] 01-30-2024 11:45-0400 Respiratory rate 18 /min Jerome Perdomo MD Work Phone: [facility] 01-30-2024 11:45-0400 Systolic blood pressure 180 mm[Hg] Jerome Perdomo MD Work Phone: [facility] 01-16-2024 15:47-0400 Body temperature 97.9 [degF] Jerome Perdomo MD Work Phone: [facility] 01-16-2024 15:47-0400 Diastolic blood pressure 82 mm[Hg] Jerome Perdomo MD Work Phone: [facility] 01-16-2024 15:47-0400 Heart rate 70 /min Jerome Perdomo MD Work Phone: [facility] 01-16-2024 15:47-0400 Respiratory rate 20 /min Jerome Perdomo MD Work Phone: [facility] 01-16-2024 15:47-0400 Systolic blood pressure 162 mm[Hg] Jerome Perdomo MD Work Phone: [facility] 2024 11:52-0400 Body temperature 97.59 [degF] Jerome Perdomo MD Work Phone: [facility] 2024 11:52-0400 Diastolic blood pressure 74 mm[Hg] Jerome Perdomo MD Work Phone: [facility] 2024 11:52-0400 Heart rate 74 /min Jerome Perdomo MD Work Phone: [facility] 2024 11:52-0400 Respiratory rate 18 /min Jerome Perdomo MD Work Phone: [facility] 2024 11:52-0400 Systolic blood pressure 155 mm[Hg] Jerome Perdomo MD Work Phone: [facility] 12-20-2023 16:27-0400 Body temperature 97.59 [degF] Jerome Perdomo MD Work Phone: [facility] 12-20-2023 16:27-0400 Diastolic blood pressure 84 mm[Hg] Jerome Perdomo MD Work Phone: [facility] 12-20-2023 16:27-0400 Heart rate 74 /min Jerome Perdomo MD Work Phone: [facility] 12-20-2023 16:27-0400 Respiratory rate 18 /min Jerome Perdomo MD Work Phone: [facility] 12-20-2023 16:27-0400 Systolic blood pressure 142 mm[Hg] Jerome Perdomo MD Work Phone: [facility] 12-05-2023 11:27-0400 Diastolic blood pressure 74 mm[Hg] Jerome Perdomo MD Work Phone: [facility] 12-05-2023 11:27-0400 Heart rate 64 /min Jerome Perdomo MD Work Phone: [facility] 12-05-2023 11:27-0400 Respiratory rate 18 /min Jerome Perdomo MD Work Phone: [facility] 12-05-2023 11:27-0400 Systolic blood pressure 175 mm[Hg] Jerome Perdomo MD Work Phone: [facility] 11-07-2023 11:48-0400 Body temperature 98.1 [degF] Jerome Perdomo MD Work Phone: [facility] 11-07-2023 11:48-0400 Respiratory rate 18 /min Jerome Perdomo MD Work Phone: [facility] 11-02-2023 15:29-0400 Body height 167.6 cm Lyric Cruz INSURANCE CLAIM AUDITOR - OPTICAL ADVISOR Work Phone: [facility] 11-02-2023 15:29-0400 Body mass index (BMI) [Ratio] 43.48 kg/m2 Lyric Cruz INSURANCE CLAIM AUDITOR - OPTICAL ADVISOR Work Phone: [facility] 11-02-2023 15:29-0400 Body weight 122.2 kg Lyric Cruz INSURANCE CLAIM AUDITOR - OPTICAL ADVISOR Work Phone: [facility] 11-02-2023 15:29-0400 Diastolic blood pressure 80 mm[Hg] Lyric Cruz INSURANCE CLAIM AUDITOR - OPTICAL ADVISOR Work Phone: [facility] 11-02-2023 15:29-0400 Heart rate 74 /min Lyric Cruz INSURANCE CLAIM AUDITOR - OPTICAL ADVISOR Work Phone: [facility] 11-02-2023 15:29-0400 Systolic blood pressure 110 mm[Hg] Lyric Cruz INSURANCE CLAIM AUDITOR - OPTICAL ADVISOR Work Phone: [facility] 11-01-2023 15:26-0400 Body mass index (BMI) [Ratio] 43.26 kg/m2 Anjana Frandy INSURANCE CLAIM AUDITOR - OPTICAL ADVISOR Work Phone: [facility] 11-01-2023 15:26-0400 Body weight 121.56 kg Anjana Frandy INSURANCE CLAIM AUDITOR - OPTICAL ADVISOR Work Phone: [facility] 11-01-2023 15:26-0400 Diastolic blood pressure 89 mm[Hg] Anjana Frandy INSURANCE CLAIM AUDITOR - OPTICAL ADVISOR Work Phone: [facility] 11-01-2023 15:26-0400 Heart rate 80 /min Anjana Frandy INSURANCE CLAIM AUDITOR - OPTICAL ADVISOR Work Phone: [facility] 11-01-2023 15:26-0400 Systolic blood pressure 138 mm[Hg] Anjana Frandy INSURANCE CLAIM AUDITOR - OPTICAL ADVISOR Work Phone: [facility] 10-24-2023 11:40-0400 Body temperature 98.1 [degF] Jerome Perdomo MD Work Phone: [facility] 10-24-2023 11:40-0400 Diastolic blood pressure 73 mm[Hg] Jerome Perdomo MD Work Phone: [facility] 10-24-2023 11:40-0400 Heart rate 59 /min Jerome Perdomo MD Work Phone: [facility] 10-24-2023 11:40-0400 Respiratory rate 20 /min Jerome Perdomo MD Work Phone: [facility] 10-24-2023 11:40-0400 Systolic blood pressure 170 mm[Hg] Jerome Perdomo MD Work Phone: [facility] 10-10-2023 13:34-0400 Body temperature 97.59 [degF] Jerome Perdomo MD Work Phone: [facility] 10-10-2023 13:34-0400 Diastolic blood pressure 85 mm[Hg] Jerome Perdomo MD Work Phone: [facility] 10-10-2023 13:34-0400 Heart rate 65 /min Jerome Perdomo MD Work Phone: [facility] 10-10-2023 13:34-0400 Respiratory rate 16 /min Jerome Perdomo MD Work Phone: [facility] 10-10-2023 13:34-0400 Systolic blood pressure 162 mm[Hg] Jerome Perdoom MD Work Phone: [facility] 09-26-2023 11:22-0500 Body temperature 98.1 [degF] Jerome Perdomo MD Work Phone: [facility] 09-26-2023 11:22-0500 Diastolic blood pressure 92 mm[Hg] Jerome Perdomo MD Work Phone: [facility] 09-26-2023 11:22-0500 Heart rate 66 /min Jerome Perdomo MD Work Phone: [facility] 09-26-2023 11:22-0500 Respiratory rate 20 /min Jerome Perdomo MD Work Phone: [facility] 09-26-2023 11:22-0500 Systolic blood pressure 158 mm[Hg] Jerome Perdomo MD Work Phone: [facility] 09-13-2023 15:34-0500 Body temperature 98.1 [degF] Jerome Perdomo MD Work Phone: [facility] 09-13-2023 15:34-0500 Diastolic blood pressure 92 mm[Hg] Jerome Perdomo MD Work Phone: [facility] Comment on above: Seeing family doctor on Sunday09-13-2023 15:34-0500 Heart rate 66 /min Jerome Perdomo MD Work Phone: [facility] 09-13-2023 15:34-0500 Respiratory rate 20 /min Jerome Perdomo MD Work Phone: [facility] 09-13-2023 15:34-0500 Systolic blood pressure 158 mm[Hg] Jerome Perdomo MD Work Phone: [facility] Comment on above: Seeing family doctor on Sunday09-11-2023 14:34-0500 Body height 167.6 cm Ino He MD Work Phone: [facility] 09-11-2023 14:34-0500 Body mass index (BMI) [Ratio] 42.09 kg/m2 Ino He MD Work Phone: [facility] 09-11-2023 14:34-0500 Body temperature 98.2 [degF] Ino He MD Work Phone: [facility] 09-11-2023 14:34-0500 Body weight 118.3 kg Ino He MD Work Phone: [facility] 09-11-2023 14:34-0500 Diastolic blood pressure 86 mm[Hg] Ino He MD Work Phone: [facility] 09-11-2023 14:34-0500 Heart rate 79 /min Ino He MD Work Phone: [facility] 09-11-2023 14:34-0500 Respiratory rate 18 /min Ino He MD Work Phone: [facility] 09-11-2023 14:34-0500 SaO2% (BldA) [Mass fraction] 97 % Ino He MD Work Phone: [facility] 09-11-2023 14:34-0500 Systolic blood pressure 180 mm[Hg] Ino He MD Work Phone: [facility] 08-29-2023 11:22-0500 Body temperature 98.1 [degF] Jerome Perdomo MD Work Phone: [facility] 08-29-2023 11:22-0500 Diastolic blood pressure 76 mm[Hg] Jerome Perdomo MD Work Phone: [facility] 08-29-2023 11:22-0500 Heart rate 61 /min Jerome Perdomo MD Work Phone: [facility] 08-29-2023 11:22-0500 Respiratory rate 20 /min Jerome Perdomo MD Work Phone: [facility] 08-29-2023 11:22-0500 Systolic blood pressure 175 mm[Hg] Jerome Perdomo MD Work Phone: [facility] 08-15-2023 15:59-0500 Body temperature 98.71 [degF] Jerome Perdomo MD Work Phone: [facility] 08-15-2023 15:59-0500 Diastolic blood pressure 96 mm[Hg] Jerome Perdomo MD Work Phone: [facility] 08-15-2023 15:59-0500 Heart rate 60 /min Jerome Perdomo MD Work Phone: [facility] 08-15-2023 15:59-0500 Respiratory rate 16 /min Jerome Perdomo MD Work Phone: [facility] 08-15-2023 15:59-0500 Systolic blood pressure 184 mm[Hg] Jerome Perdomo MD Work Phone: [facility] 08-01-2023 11:44-0500 Body temperature 97.7 [degF] Jerome Perdomo MD Work Phone: [facility] 08-01-2023 11:44-0500 Diastolic blood pressure 84 mm[Hg] Jerome Perdomo MD Work Phone: [facility] 08-01-2023 11:44-0500 Heart rate 74 /min Jerome Perdomo MD Work Phone: [facility] 08-01-2023 11:44-0500 Respiratory rate 18 /min Jerome Perdomo MD Work Phone: [facility] 08-01-2023 11:44-0500 Systolic blood pressure 196 mm[Hg] Jerome Perdomo MD Work Phone: [facility] 07-18-2023 11:39-0500 Body temperature 98.2 [degF] Jerome Perdomo MD Work Phone: [facility] 07-18-2023 11:39-0500 Diastolic blood pressure 72 mm[Hg] Jerome Perdomo MD Work Phone: [facility] 07-18-2023 11:39-0500 Heart rate 83 /min Jerome Perdomo MD Work Phone: [facility] 07-18-2023 11:39-0500 Respiratory rate 16 /min Jerome Perdomo MD Work Phone: [facility] 07-18-2023 11:39-0500 Systolic blood pressure 197 mm[Hg] Jerome Perdomo MD Work Phone: [facility] 07-04-2023 16:04-0500 Body temperature 98.1 [degF] Jerome Perdomo MD Work Phone: [facility] 07-04-2023 16:04-0500 Diastolic blood pressure 84 mm[Hg] Jerome Perdomo MD Work Phone: [facility] 07-04-2023 16:04-0500 Heart rate 74 /min Jerome Perdomo MD Work Phone: [facility] 07-04-2023 16:04-0500 Respiratory rate 18 /min Jerome Perdomo MD Work Phone: [facility] 07-04-2023 16:04-0500 Systolic blood pressure 145 mm[Hg] Jerome Perdomo MD Work Phone: [facility] 06-06-2023 16:08-0500 Body temperature 97.59 [degF] Jerome Perdomo MD Work Phone: [facility] 06-06-2023 16:08-0500 Diastolic blood pressure 74 mm[Hg] Jerome Perdomo MD Work Phone: [facility] 06-06-2023 16:08-0500 Heart rate 76 /min Jerome Perdomo MD Work Phone: [facility] 06-06-2023 16:08-0500 Respiratory rate 18 /min Jerome Perdomo MD Work Phone: [facility] 06-06-2023 16:08-0500 Systolic blood pressure 146 mm[Hg] Jerome Perdomo MD Work Phone: [facility] 05-23-2023 12:12-0400 Body temperature 98.91 [degF] Jerome Perdomo MD Work Phone: [facility] 05-23-2023 12:12-0400 Diastolic blood pressure 82 mm[Hg] Jerome Perdomo MD Work Phone: [facility] 05-23-2023 12:12-0400 Heart rate 69 /min Jerome Perdomo MD Work Phone: [facility] 05-23-2023 12:12-0400 Respiratory rate 18 /min Jerome Perdomo MD Work Phone: [facility] 05-23-2023 12:12-0400 Systolic blood pressure 160 mm[Hg] Jerome Perdomo MD Work Phone: [facility] 05-09-2023 15:30-0400 Body height 167.6 cm Bridget Alcantara MD Work Phone: [facility] 05-09-2023 15:30-0400 Body mass index (BMI) [Ratio] 44.22 kg/m2 Bridget Alcantara MD Work Phone: [facility] 05-09-2023 15:30-0400 Body weight 124.29 kg Bridget Alcantara MD Work Phone: [facility] 05-09-2023 15:30-0400 Diastolic blood pressure 80 mm[Hg] Bridget Alcantara MD Work Phone: [facility] 05-09-2023 15:30-0400 Systolic blood pressure 158 mm[Hg] Bridget Alcantara MD Work Phone: [facility] 05-08-2023 11:52-0400 Body temperature 97.81 [degF] Jerome Perdomo MD Work Phone: [facility] 05-08-2023 11:52-0400 Diastolic blood pressure 77 mm[Hg] Jerome Perdomo MD Work Phone: [facility] 05-08-2023 11:52-0400 Heart rate 93 /min Jerome Perdomo MD Work Phone: [facility] 05-08-2023 11:52-0400 Respiratory rate 18 /min Jerome Perdomo MD Work Phone: [facility] 05-08-2023 11:52-0400 Systolic blood pressure 181 mm[Hg] Jerome Perdomo MD Work Phone: [facility] 04-25-2023 12:11-0400 Body temperature 96.8 [degF] Jerome Perdomo MD Work Phone: [facility] 04-25-2023 12:11-0400 Diastolic blood pressure 81 mm[Hg] Jerome Perdomo MD Work Phone: [facility] 04-25-2023 12:11-0400 Heart rate 64 /min Jerome Perdomo MD Work Phone: [facility] 04-25-2023 12:11-0400 Respiratory rate 20 /min Jerome Perdomo MD Work Phone: [facility] 04-25-2023 12:11-0400 Systolic blood pressure 144 mm[Hg] Jerome Perdomo MD Work Phone: [facility] 04-17-2023 11:37-0400 Body temperature 98.4 [degF] Jerome Perdomo MD Work Phone: [facility] 04-17-2023 11:37-0400 Diastolic blood pressure 84 mm[Hg] Jerome Perdomo MD Work Phone: [facility] 04-17-2023 11:37-0400 Heart rate 58 /min Jerome Perdomo MD Work Phone: [facility] 04-17-2023 11:37-0400 Respiratory rate 20 /min Jerome Perdomo MD Work Phone: [facility] 04-17-2023 11:37-0400 Systolic blood pressure 194 mm[Hg] Jerome Perdomo MD Work Phone: [facility] 04-11-2023 11:24-0400 Body temperature 97.9 [degF] Jerome Perdomo MD Work Phone: [facility] 04-11-2023 11:24-0400 Diastolic blood pressure 79 mm[Hg] Jerome Perdomo MD Work Phone: [facility] 04-11-2023 11:24-0400 Heart rate 68 /min Jerome Perdomo MD Work Phone: [facility] 04-11-2023 11:24-0400 Respiratory rate 16 /min Jerome Perdomo MD Work Phone: [facility] 04-11-2023 11:24-0400 Systolic blood pressure 190 mm[Hg] Jerome Perdomo MD Work Phone: [facility] 04-09-2023 13:08-0400 Body temperature 98.4 [degF] Jerome Perdomo MD Work Phone: [facility] 04-09-2023 13:08-0400 Diastolic blood pressure 73 mm[Hg] Jerome Perdomo MD Work Phone: [facility] 04-09-2023 13:08-0400 Heart rate 69 /min Jerome Perdomo MD Work Phone: [facility] 04-09-2023 13:08-0400 Respiratory rate 16 /min Jerome Perdomo MD Work Phone: [facility] 04-09-2023 13:08-0400 Systolic blood pressure 184 mm[Hg] Jerome Perdomo MD Work Phone: [facility] 03-28-2023 11:50-0400 Diastolic blood pressure 83 mm[Hg] Jerome Perdomo MD Work Phone: [facility] 03-28-2023 11:50-0400 Heart rate 61 /min Jerome Perdomo MD Work Phone: [facility] 03-28-2023 11:50-0400 Respiratory rate 20 /min Jerome Perdomo MD Work Phone: [facility] 03-28-2023 11:50-0400 Systolic blood pressure 147 mm[Hg] Jerome Perdomo MD Work Phone: [facility] 03-14-2023 11:49-0400 Body temperature 97.5 [degF] Jerome Perdomo MD Work Phone: [facility] 03-14-2023 11:49-0400 Diastolic blood pressure 88 mm[Hg] Jerome Perdomo MD Work Phone: [facility] 03-14-2023 11:49-0400 Heart rate 63 /min Jerome Perdomo MD Work Phone: [facility] 03-14-2023 11:49-0400 Respiratory rate 20 /min Jerome Perdomo MD Work Phone: [facility] 03-14-2023 11:49-0400 Systolic blood pressure 191 mm[Hg] Jerome Perdomo MD Work Phone: [facility] 03-02-2023 14:07-0400 Body height 167.6 cm Ino He MD Work Phone: [facility] 03-02-2023 14:07-0400 Body mass index (BMI) [Ratio] 45.35 kg/m2 Ino He MD Work Phone: [facility] 03-02-2023 14:07-0400 Body temperature 96.91 [degF] Ino He MD Work Phone: [facility] 03-02-2023 14:07-0400 Body weight 127.46 kg Ino He MD Work Phone: [facility] 03-02-2023 14:07-0400 Diastolic blood pressure 79 mm[Hg] Ino He MD Work Phone: [facility] 03-02-2023 14:07-0400 Respiratory rate 18 /min Ino He MD Work Phone: [facility] 03-02-2023 14:07-0400 SaO2% (BldA) [Mass fraction] 97 % Ino He MD Work Phone: [facility] 03-02-2023 14:07-0400 Systolic blood pressure 193 mm[Hg] Ino He MD Work Phone: [facility] 02-14-2023 11:35-0400 Body temperature 98.1 [degF] Jerome Perdomo MD Work Phone: [facility] 02-14-2023 11:35-0400 Diastolic blood pressure 86 mm[Hg] Jerome Perdomo MD Work Phone: [facility] 02-14-2023 11:35-0400 Heart rate 66 /min Jerome Perdomo MD Work Phone: [facility] 02-14-2023 11:35-0400 Respiratory rate 20 /min Jerome Perdomo MD Work Phone: [facility] 02-14-2023 11:35-0400 Systolic blood pressure 181 mm[Hg] Jerome Perdomo MD Work Phone: [facility] 01-31-2023 11:42-0400 Body temperature 98.2 [degF] Jerome Perdomo MD Work Phone: [facility] 01-31-2023 11:42-0400 Diastolic blood pressure 83 mm[Hg] Jerome Perdomo MD Work Phone: [facility] 01-31-2023 11:42-0400 Heart rate 61 /min Jerome Perdomo MD Work Phone: [facility] 01-31-2023 11:42-0400 Respiratory rate 20 /min Jerome Perdomo MD Work Phone: [facility] 01-31-2023 11:42-0400 Systolic blood pressure 191 mm[Hg] Jerome Perdomo MD Work Phone: [facility] 01-19-2023 15:30-0400 Body height 167.6 cm Lyric Cruz APRN - OPTICAL ADVISOR Work Phone: [facility] 01-19-2023 15:30-0400 Body mass index (BMI) [Ratio] 45.89 kg/m2 Lyric Cruz INSURANCE CLAIM AUDITOR - OPTICAL ADVISOR Work Phone: [facility] 01-19-2023 15:30-0400 Body weight 128.96 kg Lyric Cruz APRN - OPTICAL ADVISOR Work Phone: [facility] 01-19-2023 15:30-0400 Diastolic blood pressure 88 mm[Hg] Lyric Cruz APRN - OPTICAL ADVISOR Work Phone: [facility] 01-19-2023 15:30-0400 Heart rate 64 /min Lyric Cruz INSURANCE CLAIM AUDITOR - OPTICAL ADVISOR Work Phone: [facility] 01-19-2023 15:30-0400 Systolic blood pressure 128 mm[Hg] Lyric Cruz INSURANCE CLAIM AUDITOR - OPTICAL ADVISOR Work Phone: [facility] 01-17-2023 11:37-0400 Body temperature 97 [degF] Jerome Perdomo MD Work Phone: [facility] 01-17-2023 11:37-0400 Diastolic blood pressure 76 mm[Hg] Jerome Perdomo MD Work Phone: [facility] 01-17-2023 11:37-0400 Heart rate 76 /min Jerome Perdomo MD Work Phone: [facility] 01-17-2023 11:37-0400 Systolic blood pressure 152 mm[Hg] Jerome Perdomo MD Work Phone: [facility] 01-03-2023 16:13-0400 Body temperature 97.39 [degF] Jerome Perdomo MD Work Phone: [facility] 01-03-2023 16:13-0400 Diastolic blood pressure 90 mm[Hg] Jerome Perdomo MD Work Phone: [facility] 01-03-2023 16:13-0400 Heart rate 90 /min Jerome Perdomo MD Work Phone: [facility] 01-03-2023 16:13-0400 Respiratory rate 20 /min Jerome Perdomo MD Work Phone: [facility] 01-03-2023 16:13-0400 Systolic blood pressure 187 mm[Hg] Jerome Perdomo MD Work Phone: [facility] 01-03-2023 11:55-0400 Body temperature 97.39 [degF] Jerome Perdomo MD Work Phone: [facility] 01-03-2023 11:55-0400 Diastolic blood pressure 90 mm[Hg] Jerome Perdomo MD Work Phone: [facility] 01-03-2023 11:55-0400 Respiratory rate 20 /min Jerome Perdomo MD Work Phone: [facility] 01-03-2023 11:55-0400 Systolic blood pressure 187 mm[Hg] Jerome Perdomo MD Work Phone: [facility] 12-20-2022 12:58-0400 Body temperature 97.9 [degF] Jerome Perdomo MD Work Phone: [facility] 12-20-2022 12:58-0400 Diastolic blood pressure 91 mm[Hg] Jerome Perdomo MD Work Phone: [facility] 12-20-2022 12:58-0400 Heart rate 90 /min Jerome Perdomo MD Work Phone: [facility] 12-20-2022 12:58-0400 Respiratory rate 20 /min Jerome Perdomo MD Work Phone: [facility] 12-20-2022 12:58-0400 Systolic blood pressure 178 mm[Hg] Jerome Perdomo MD Work Phone: [facility] 11-24-2022 16:16-0400 Body temperature 97.11 [degF] Jerome Perdomo MD Work Phone: [facility] 11-24-2022 16:16-0400 Diastolic blood pressure 78 mm[Hg] Jerome Perdomo MD Work Phone: [facility] 11-24-2022 16:16-0400 Heart rate 68 /min Jerome Perdomo MD Work Phone: [facility] 11-24-2022 16:16-0400 Respiratory rate 18 /min Jerome Perdomo MD Work Phone: [facility] 11-24-2022 16:16-0400 Systolic blood pressure 155 mm[Hg] Jerome Perdomo MD Work Phone: [facility] 11-22-2022 11:36-0400 Body temperature 98.6 [degF] Jerome Perdomo MD Work Phone: [facility] 11-22-2022 11:36-0400 Diastolic blood pressure 90 mm[Hg] Jerome Perdomo MD Work Phone: [facility] 11-22-2022 11:36-0400 Heart rate 64 /min Jerome Perdomo MD Work Phone: [facility] 11-22-2022 11:36-0400 Respiratory rate 20 /min Jerome Perdomo MD Work Phone: [facility] 11-22-2022 11:36-0400 Systolic blood pressure 166 mm[Hg] Jerome Perdomo MD Work Phone: [facility] 11-08-2022 11:08-0400 Body temperature 98.49 [degF] Jerome Perdomo MD Work Phone: [facility] 11-08-2022 11:08-0400 Diastolic blood pressure 93 mm[Hg] Jerome Perdomo MD Work Phone: [facility] 11-08-2022 11:08-0400 Heart rate 69 /min Jerome Perdomo MD Work Phone: [facility] 11-08-2022 11:08-0400 Respiratory rate 20 /min Jreome Perdomo MD Work Phone: [facility] 11-08-2022 11:08-0400 Systolic blood pressure 163 mm[Hg] Jerome Perdomo MD Work Phone: [facility] 11-03-2022 13:37-0400 Body height 167.6 cm Jaqueline Grayson APRN - OPTICAL ADVISOR Work Phone: [facility] 11-03-2022 13:37-0400 Body mass index (BMI) [Ratio] 45.68 kg/m2 Jaqueline Grayson INSURANCE CLAIM AUDITOR - OPTICAL ADVISOR Work Phone: [facility] 11-03-2022 13:37-0400 Body weight 128.37 kg Jaqueline Grayson APRN - OPTICAL ADVISOR Work Phone: [facility] 11-03-2022 13:37-0400 Diastolic blood pressure 91 mm[Hg] Jaqueline Grayson INSURANCE CLAIM AUDITOR - OPTICAL ADVISOR Work Phone: [facility] 11-03-2022 13:37-0400 Heart rate 73 /min Jaqueline Grayson INSURANCE CLAIM AUDITOR - OPTICAL ADVISOR Work Phone: [facility] 11-03-2022 13:37-0400 Systolic blood pressure 188 mm[Hg] Jaqueline Grayson INSURANCE CLAIM AUDITOR - OPTICAL ADVISOR Work Phone: [facility] 10-25-2022 11:40-0400 Body temperature 97.81 [degF] Jerome Perdomo MD Work Phone: [facility] 10-25-2022 11:40-0400 Diastolic blood pressure 82 mm[Hg] Jerome Perdomo MD Work Phone: [facility] 10-25-2022 11:40-0400 Heart rate 60 /min Jerome Perdomo MD Work Phone: [facility] 10-25-2022 11:40-0400 Respiratory rate 16 /min Jerome Perdomo MD Work Phone: [facility] 10-25-2022 11:40-0400 Systolic blood pressure 169 mm[Hg] Jerome Perdomo MD Work Phone: [facility] 10-11-2022 13:13-0400 Body temperature 98.2 [degF] Jerome Perdomo MD Work Phone: [facility] 10-11-2022 13:13-0400 Diastolic blood pressure 80 mm[Hg] Jerome Perdomo MD Work Phone: [facility] 10-11-2022 13:13-0400 Heart rate 77 /min Jerome Perdomo MD Work Phone: [facility] 10-11-2022 13:13-0400 Respiratory rate 18 /min Jerome Perdomo MD Work Phone: [facility] 10-11-2022 13:13-0400 Systolic blood pressure 165 mm[Hg] Jerome Perdomo MD Work Phone: [facility] 09-27-2022 11:31-0500 Body temperature 98.29 [degF] Jerome Perdomo MD Work Phone: [facility] 09-27-2022 11:31-0500 Diastolic blood pressure 77 mm[Hg] Jerome Perdomo MD Work Phone: [facility] 09-27-2022 11:31-0500 Heart rate 65 /min Jerome Perdomo MD Work Phone: [facility] 09-27-2022 11:31-0500 Respiratory rate 20 /min Jerome Perdomo MD Work Phone: [facility] 09-27-2022 11:31-0500 Systolic blood pressure 185 mm[Hg] Jerome Perdomo MD Work Phone: [facility] 09-13-2022 15:28-0500 Body height 167.6 cm Ino He MD Work Phone: [facility] 09-13-2022 15:28-0500 Body mass index (BMI) [Ratio] 45.35 kg/m2 Ino He MD Work Phone: [facility] 09-13-2022 15:28-0500 Body temperature 97.81 [degF] Ino He MD Work Phone: [facility] 09-13-2022 15:28-0500 Body weight 127.46 kg Ino He MD Work Phone: [facility] 09-13-2022 15:28-0500 Diastolic blood pressure 73 mm[Hg] Ino He MD Work Phone: [facility] 09-13-2022 15:28-0500 Heart rate 74 /min Ino He MD Work Phone: [facility] 09-13-2022 15:28-0500 Respiratory rate 18 /min Ino He MD Work Phone: [facility] 09-13-2022 15:28-0500 Systolic blood pressure 148 mm[Hg] Ino He MD Work Phone: [facility] 09-13-2022 12:07-0500 Body temperature 98.1 [degF] Jerome Perdomo MD Work Phone: [facility] 09-13-2022 12:07-0500 Diastolic blood pressure 86 mm[Hg] Jerome Perdomo MD Work Phone: [facility] 09-13-2022 12:07-0500 Heart rate 82 /min Jerome Perdomo MD Work Phone: [facility] 09-13-2022 12:07-0500 Respiratory rate 18 /min Jerome Perdomo MD Work Phone: [facility] 09-13-2022 12:07-0500 Systolic blood pressure 156 mm[Hg] Jerome Perdomo MD Work Phone: [facility] 10-01-2020 13:21-0500 Body Temperature 98.1 [degF] Cuauhtemoc [...] Evaluation and management of inpatient CUAUHTEMOC MACHADO [facility] Start: 01-03-2025 End: 01-03-2025 Follow-up encounter Cuauhtemoc Stubbs MD Work Phone: [facility] - [place] Comment on above: PET/CT skull base to mid thigh Start: 2025 End: 2025 Subsequent hospital visit by physician Cuauhtemoc Stubbs MD Work Phone: [facility] PET Comment on above: Multiple lung nodule s; Endometrial cancer (CMS/HCC) (HCC) Start: 2025 End: 2025 ambulatory CUAUHTEMOCBETTINA STUBBS [facility] Start: 01-01-2025 End: 01-01-2025 Telephone encounter Christy Rizzo MD Work Phone: [facility] Start: 12-23-2024 End: 12-23-2024 ambulatory Scotty Hernandez RN [facility] Start: 12-23-2024 End: 12-23-2024 Follow-up encounter Cuauhtemoc Stubbs MD Work Phone: [facility] Comment on above: Tissue exam Start: 12-23-2024 End: 12-23-2024 Patient encounter procedure Scotty Hernandez RN [facility] Start: 12-22-2024 End: 12-22-2024 Subsequent hospital visit by physician Cuauhtemoc Stubbs MD Work Phone: [facility] CT Imaging Comment on above: Endometrial cancer ( CMS/HCC) (HCC); Multiple lung nodules Start: 12-22-2024 End: 12-22-2024 ambulatory CUAUHTEMOCBETTINA STUBBS [facility] Start: 12-10-2024 End: 12-10-2024 Orders Only Cuauhtemoc Stubbs MD Work Phone: [facility] Comment on above: Endometrial cancer ( CMS/HCC) (HCC) (Primary Dx); Multiple lung nodules Start: 12-08-2024 End: 12-08-2024 Office outpatient visit 15 minutes Cuauhtemoc Stubbs MD Work Phone: [facility] Comment on above: Endometrial cancer ( CMS/HCC) (HCC) (Primary Dx); Multiple lung nodules Start: 12-08-2024 End: 12-08-2024 ambulatory CHRISTY RIZZO [facility] Start: 12-04-2024 End: 12-04-2024 ambulatory Seble Mckinley RN [facility] Start: 12-04-2024 End: 12-04-2024 Patient encounter procedure Seble Mckinley RN [facility] Start: 11-25-2024 End: 11-25-2024 ambulatory Araseli Can INSURANCE CLAIM AUDITOR - OPTICAL ADVISOR Work Phone: [facility] Comment on above: Persistent atrial fi brillation (HCC) (Primary Dx); Type 2 diabetes mellitus with hyperglycemia, with long-term current use of insulin (HCC) Start: 11-21-2024 End: 11-21-2024 ambulatory Marianne Tang MD Work Phone: [facility] Comment on above: Debility (Primary Dx [...] Start: 11-18-2024 End: 11-18-2024 ambulatory Araseli Can INSURANCE CLAIM AUDITOR - OPTICAL ADVISOR Work Phone: [facility] Comment on above: Type 2 diabetes devon itus with hyperglycemia, with long-term current use of insulin (HCC) (Primary Dx); Lymphedema of both lower extremities Start: 11-12-2024 End: 11-12-2024 ambulatory Araseli Can INSURANCE CLAIM AUDITOR - OPTICAL ADVISOR Work Phone: [facility] Comment on above: Lymphedema of both l ower extremities (Primary Dx); Type 2 diabetes mellitus with hyperglycemia, with long-term current use of insulin ([facility]); Vitamin D deficiency Start: 11-11-2024 End: 11-11-2024 ambulatory CHRISTY RIZZO [facility] Start: 11-11-2024 End: 11-11-2024 Subsequent hospital visit by physician Christy Rizzo MD Work Phone: [address] Comment on above: Abnormal weight loss ; Other malaise; Malignant neoplasm of endometrium (HCC); Other amnesia Start: 11-10-2024 End: 11-10-2024 ambulatory Araseli Can INSURANCE CLAIM AUDITOR - OPTICAL ADVISOR Work Phone: [facility] Comment on above: Type 2 diabetes devon itus with hyperglycemia, with long-term current use of insulin (HCC) (Primary Dx); Debility; Poor sleep hygiene Start: 11-07-2024 End: 11-08-2024 ambulatory Mraianne Tang MD Work Phone: [facility] Comment on above: Debility (Primary Dx [...] Start: 11-06-2024 End: 11-06-2024 ambulatory Araseli Butts OPTICAL ADVISOR Work Phone: [facility] Comment on above: Persistent atrial fi brillation (HCC) (Primary Dx); Type 2 diabetes mellitus with hyperglycemia, with long-term current use of insulin (HCC); Cognitive decline; Debility; Essential hypertension, benign; Moderate aortic stenosis; Mixed hyperlipidemia; Primary open angle glaucoma of both eyes, mild stage; Acquired hypothyroidism; Vitamin D deficiency Start: 11-05-2024 End: 11-06-2024 Telephone encounter Marianne Tang MD Work Phone: [facility] Start: 11-01-2024 End: 11-05-2024 Evaluation and management of inpatient Damon Vu MD Work Phone: [facility] Cardiac Post Intervention Progressive Care Unit CPI PCU 4W Comment on above: Persistent atrial fi brillation (HCC) (Primary Dx); Hyperglycemia; Acute cystitis with hematuria; RADHA (obstructive sleep apnea); Acute on chronic diastolic heart failure (HCC); Delirium; Debility; Memory loss; Declining functional status; Weight loss Start: 11-01-2024 End: 01-30-2025 ambulatory Tsering Tian RN [facility] Clinical Communication Start: 11-01-2024 End: 01-30-2025 Patient encounter procedure Tsering Tian RN [facility] Clinical Communication Start: 10-27-2024 End: 01-26-2025 Transcribe Orders Christy Rizzo MD Work Phone: [facility] Central Scheduling Comment on above: Abnormal weight loss (Primary Dx); Other malaise; Malignant neoplasm of endometrium (HCC); Other amnesia; Heart failure, unspecified (HCC); Nonrheumatic aortic (valve) stenosis; Other general symptoms and signs Start: 05-07-2024 End: 05-07-2024 ambulatory Irvin BRIDGET ARREDONDO [facility] Start: 05-07-2024 End: 05-07-2024 Subsequent hospital visit by physician Jerome Perdomo MD Work Phone: [facility] [place] Comment on above: Lymphedema Start: 05-02-2024 End: 05-02-2024 ambulatory MOSES ACEVEDO Facility:[facility] Start: 05-02-2024 End: 05-02-2024 Patient encounter procedure Moses Acevedo MD Work Phone: [facility] [place] Comment on above: Primary open [...] both eyes Start: 04-23-2024 ambulatory Irvin ARREDONDO [facility] Start: 04-23-2024 End: 04-23-2024 Office outpatient visit 15 minutes Jerome Perdomo MD Work Phone: [facility] [place] Comment on above: Lymphedema (Primary Dx) Start: 04-09-2024 End: 04-09-2024 ambulatory Irvin BRIDGET ARREDONDO [facility] Start: 04-09-2024 End: 04-09-2024 Subsequent hospital visit by physician Jerome Perdomo MD Work Phone: [facility] - [place] Comment on above: Lymphedema of both l ower extremities Start: 03-26-2024 End: 03-26-2024 Office outpatient visit 25 minutes Lyric Cruz INSURANCE CLAIM AUDITOR [employer] Work Phone: [facility] Comment on above: Type 2 [...] 15 minutes Jerome Perdomo MD Work Phone: [facility] Comment on above: Lymphedema of both l ower extremities (Primary Dx) Start: 03-17-2024 End: 03-18-2024 Telephone encounter Lyric Cruz INSURANCE CLAIM AUDITOR [employer] Work Phone: [facility] Comment on above: Appointment Request Start: 03-14-2024 End: 03-14-2024 Subsequent hospital visit by physician Christy Rizzo MD Work Phone: [facility] Comment on above: Essential (primary) hypertension; Cardiac murmur, unspecified Start: 03-12-2024 ambulatory [facility] Start: 03-12-2024 End: 03-12-2024 Subsequent hospital visit by physician Jerome Perdomo MD Work Phone: [facility] Comment on above: Lymphedema Start: 03-04-2024 End: 03-04-2024 Office outpatient visit 15 minutes Anjana Meadows INSURANCE CLAIM AUDITOR [employer] Work Phone: [facility] Gynecologic Oncology Comment on above: Vaginal discharge (P rimary Dx); Endometrial cancer (CMS/HCC) (HCC); Obesity with body mass index greater than 30; Lymphedema; Malignant neoplasm of body of uterus, unspecified site (HCC) Start: 02-28-2024 End: 05-29-2024 Transcribe Orders Christy Rizzo MD Work Phone: [facility]uling Comment on above: Essential [...] Telephone encounter Christy Rizzo MD Work Phone: [facility] Clinical Communication Start: 01-16-2024 End: 01-16-2024 [...] Telephone encounter Anjana Butts CNP Work Phone: [facility] Start: 12-20-2023 End: 12-20-2023 Subsequent hospital visit by physician Jerome Perdomo MD Work Phone: [facility] Comment on above: Lymphedema Start: 12-19-2023 Telephone encounter Jaqueline Velasquez ashu INSURANCE CLAIM AUDITOR - OPTICAL ADVISOR Work Phone: [facility] Start: 12-19-2023 ambulatory [facility] Start: 12-05-2023 End: 12-05-2023 Office outpatient visit 15 minutes Jerome Perdomo MD Work Phone: [facility] Comment on above: Lymphedema (Primary Dx) Start: 12-04-2023 End: 12-04-2023 Subsequent hospital visit by physician Anjana Meadows INSURANCE CLAIM AUDITOR - OPTICAL ADVISOR Work Phone: [facility] Comment on above: Endometrial cancer ( CMS/HCC) (HCC) Start: 11-21-2023 End: 11-21-2023 Subsequent hospital visit by physician Jerome Perdomo MD Work Phone: [facility] Comment on above: Lymphedema of both l ower extremities Start: 11-21-2023 ambulatory [facility] Start: 11-15-2023 Telephone encounter Cuauhtemoc Stubbs MD Work Phone: [facility] Start: 11-13-2023 End: 11-13-2023 ambulatory MASON JOHNSTON Facility:[facility] Start: 11-13-2023 End: 11-13-2023 Patient encounter procedure Mason Johnston MD Work Phone: [facility] [place] Comment on above: Hypertensive retinop [...] Telephone encounter Cuauhtemoc Stubbs MD Work Phone: [facility] Start: 11-02-2023 End: 11-02-2023 Office outpatient visit 25 minutes Lyric Cruz INSURANCE CLAIM AUDITOR - OPTICAL ADVISOR Work Phone: [facility] Comment on above: Type 2 diabetes deovn itus with hyperglycemia, with long-term current use [...] Office outpatient visit 15 minutes Anjana Frandy INSURANCE CLAIM AUDITOR - OPTICAL ADVISOR Work Phone: [facility] Comment on above: Endometrial cancer ( CMS/HCC) (HCC) (Primary Dx); Malignant neoplasm of body of uterus, unspecified site (HCC) Start: 10-26-2023 End: 10-26-2023 ambulatory MOSES ACEVEDO Facility:[facility] Start: 10-26-2023 End: 10-26-2023 Patient encounter procedure Moses Acevedo MD Work Phone: [facility] Comment on above: Primary open angle g laucoma of both eyes, mild stage (Primary Dx); 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; Dry eye syndrome of bilateral lacrimal glands; Cortical cataract of both eyes Start: 10-24-2023 ambulatory KIT Lee [facility] Start: 10-24-2023 End: 10-24-2023 Subsequent hospital visit by physician Jerome Perdomo MD Work Phone: [facility] Comment on above: Arrived Start: 10-10-2023 End: 10-10-2023 Subsequent hospital visit by physician Jerome Perdomo MD Work Phone: [facility] Comment on above: Lymphedema (Primary Dx); Generalized edema Start: 09-30-2023 Everette Alcantara MD Work Phone: [facility] Start: 09-26-2023 ambulatory [facility] Start: 09-26-2023 End: 09-26-2023 Office outpatient visit 15 minutes Jerome Perdomo MD Work Phone: [facility] Comment on above: Lymphedema (Primary Dx) Start: 09-13-2023 End: 09-13-2023 Subsequent hospital visit by physician Jerome Perdomo MD Work Phone: [facility] Comment on above: Lymphedema Start: 09-12-2023 [facility] Start: 09-11-2023 End: 09-11-2023 Office outpatient visit 15 minutes Ino He MD Work Phone: [facility] Comment on above: Endometrial cancer ( CMS/HCC) (HCC) (Primary Dx) Start: 08-29-2023 ambulatory [facility] Start: 08-29-2023 End: 08-29-2023 Office outpatient visit 15 minutes Jerome Perdomo MD Work Phone: [facility] Comment on above: Lymphedema (Primary Dx) Start: 08-27-2023 Telephone encounter Germania Darnell Samuelfranklin INSURANCE CLAIM AUDITOR - OPTICAL ADVISOR Work Phone: [facility] Start: 08-15-2023 End: 08-15-2023 Subsequent [...] 25 minutes Bridget Alcantara MD Work Phone: [facility] Comment on above: 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); Type 2 diabetes mellitus with hyperglycemia, with long-term current use of insulin (HCC); Mixed hyperlipidemia; Primary hypertension Start: 05-09-2023 Telephone encounter Bridget rangel MD Work Phone: [facility] Comment on above: OTHER Start: [...] encounter procedure Moses Acevedo MD Work Phone: [facility] [place] Comment on above: Primary open angle g [...] Lymphedema Start: 03-23-2023 End: 03-23-2023 Clinical Support [facility] General Milling Superintendent [facility] Comment on above: Uncontrolled type 2 diabetes mellitus with hyperglycemia, with long-term current use of insulin (HCC) Start: 03-14-2023 End: 03-14-2023 Office outpatient visit 15 minutes Jerome Perdomo MD Work Phone: [facility] Comment on above: Lymphedema (Primary Dx) Start: 03-02-2023 End: 03-02-2023 Office outpatient visit 15 minutes Ino He MD Work Phone: [facility] Comment on above: Endometrial cancer ( CMS/HCC) (HCC) (Primary Dx) Start: 02-28-2023 End: 02-28-2023 Subsequent hospital visit by physician Jerome Perdomo MD Work Phone: [facility] Comment on above: Arrived Start: 02-14-2023 End: 02-14-2023 Office outpatient visit 15 minutes Jerome Perdomo MD Work Phone: [facility] Comment on above: Lymphedema (Primary Dx) Start: 01-31-2023 End: 01-31-2023 Subsequent hospital visit by physician Jerome Perdomo MD Work Phone: [facility] Comment on above: Lymphedema; Generalized edema Start: 01-19-2023 End: 01-19-2023 Office outpatient visit 25 minutes Lyric Cruz APRN - OPTICAL ADVISOR Work Phone: [facility] Comment on above: Type 2 [...] 15 minutes Jerome Perdomo MD Work Phone: [facility] Comment on above: [...] 15 minutes Jaqueline Butts CNP Work Phone: [facility] Comment on above: Endometrial cancer ( CMS/HCC) (HCC) (Primary Dx); Malignant neoplasm of body of uterus, unspecified site (HCC) Start: 10-25-2022 End: 10-25-2022 Office outpatient visit 15 minutes Jerome Perdomo MD Work Phone: [facility] Comment on above: Lymphedema (Primary Dx) Start: 10-11-2022 End: 10-11-2022 Subsequent hospital visit by physician Jerome Perdomo MD Work Phone: [facility] Comment on above: 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) Start: 10-06-2022 Telephone encounter Lyric Martinez INSURANCE CLAIM AUDITOR - OPTICAL ADVISOR Work Phone: [facility] Comment on above: Results (Recent lab results from pcp) Start: 09-27-2022 End: 09-27-2022 Office outpatient visit 15 minutes Jerome Perdomo MD Work Phone: [facility] Comment on above: Lymphedema (Primary Dx) Start: 09-13-2022 End: 09-13-2022 Office outpatient visit 15 minutes Ino He MD Work Phone: [facility] Comment on above: Endometrial cancer ( CMS/HCC) (HCC) (Primary Dx) Start: 09-13-2022 End: 09-13-2022 Subsequent hospital visit by physician Jerome Perdomo MD Work Phone: [facility] Comment on above: Lymphedema [I89.0 (I CD-10-CM)] Start: 08-30-2022 End: 08-30-2022 Office outpatient visit 15 minutes Jerome Perdomo MD Work Phone: [facility] Comment on above: Lymphedema (Primary Dx) Start: 08-02-2022 End: 08-02-2022 Subsequent hospital visit by physician Jerome Perdomo MD Work Phone: [facility] Comment on above: Lymphedema (Primary Dx) Start: 07-31-2022 Telephone encounter Lyric Martinez INSURANCE CLAIM AUDITOR - OPTICAL ADVISOR Work Phone: [facility] [place] Comment on above: Forms/questionnaires Start: 05-10-2022 ambulatory Jeromeniurka Perdomo [facility] Start: 05-10-2022 End: 05-10-2022 Subsequent hospital visit by physician [facility]ile [facility] MD [facility] Start: 04-26-2022 End: 04-26-2022 Subsequent hospital visit by physician Haile Golden MD Work Phone: [facility] Start: 04-12-2022 End: 04-12-2022 Subsequent hospital visit by physician Haile Golden MD Work Phone: [facility] Start: 04-06-2022 End: 04-06-2022 Patient encounter procedure Moses Acevedo MD Work Phone: [facility] Comment on above: Type 2 diabetes [...] by physician Haile Golden MD Work Phone: [facility] Start: 03-15-2022 End: 03-15-2022 Subsequent hospital visit by physician Haile Golden Work Phone: [facility] Start: 03-01-2022 ambulatory UNKNOWN PROVIDER [facility] Start: 03-01-2022 End: 03-01-2022 Subsequent hospital visit by physician Ino He MD Work Phone: [facility] Start: 03-01-2022 End: 03-01-2022 Subsequent hospital visit by physician Haile Golden Work Phone: [facility] Start: 02-22-2022 End: 02-22-2022 Subsequent hospital visit by physician Haile Golden Work Phone: [facility] Start: 02-08-2022 End: 02-08-2022 Subsequent hospital visit by physician Haile Golden Work Phone: [facility] Start: 01-25-2022 End: 01-25-2022 Subsequent hospital visit by physician Haile Golden Work Phone: [facility] Start: 01-11-2022 End: 01-11-2022 Subsequent hospital visit by physician Haile Golden Work Phone: [facility] Start: 01-06-2022 End: 01-06-2022 Patient encounter procedure Moses Acevedo MD Work Phone: [facility] Comment on above: Pseudophakia, both e yes (Primary Dx); Combined forms of age-related cataract of both eyes; Primary open angle glaucoma of both eyes, mild stage; 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; Dry eye syndrome of bilateral lacrimal glands; Refractive error Start: 12-28-2021 End: 12-28-2021 Subsequent hospital visit by physician Haile Godlen Work Phone: [facility] Start: 12-14-2021 End: 12-14-2021 Subsequent hospital visit by physician Haile Golden Work Phone: [facility] Start: 12-13-2021 End: 12-13-2021 Patient encounter procedure Moses Acevedo MD Work Phone: [facility] Comment on above: Pseudophakia, both e yes (Primary Dx); Combined forms of age-related cataract of both eyes; Primary open angle glaucoma of both eyes, mild stage; 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; Dry eye syndrome of bilateral lacrimal glands Start: 12-07-2021 End: 12-07-2021 Patient encounter procedure Moses Acevedo MD Work Phone: [facility] Comment on above: Pseudophakia, both e yes (Primary Dx); Combined forms of age-related cataract of both eyes; Primary open angle glaucoma of both eyes, mild stage; 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; Dry eye syndrome of bilateral lacrimal glands Start: 12-05-2021 End: 12-05-2021 Subsequent hospital visit by physician Haile Golden Work Phone: [facility] Start: 12-02-2021 Telephone encounter Moses Acevedo MD Work Phone: [facility] Comment on above: Appointment (sx) Preparations For Lisa kareem (iol od) Start: 11-30-2021 End: 11-30-2021 Patient encounter procedure Moses Acevedo MD Work Phone: [facility] Comment on above: Pseudophakia of left eye (Primary Dx); Combined forms of age-related cataract of both eyes Start: 11-28-2021 End: 11-28-2021 Subsequent hospital visit by physician Haile Golden Work Phone: [facility] Start: 11-23-2021 End: 11-23-2021 Patient encounter procedure Moses Acevedo MD Work Phone: [facility] Comment on above: Pseudophakia of left eye (Primary Dx); Combined forms of age-related cataract of both eyes; Primary open angle glaucoma of both eyes, mild stage; 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; Dry eye syndrome of bilateral lacrimal glands Start: 11-18-2021 Telephone encounter Moses Acevedo MD Work Phone: [facility] Comment on above: Preparations For Lisa kareem (iol os) Start: 11-17-2021 Telephone encounter Moses Acevedo MD Work Phone: [facility] Comment on above: Appointment (sx) Start: 11-16-2021 End: 11-16-2021 Subsequent hospital visit by physician Haile Golden Work Phone: [facility] Start: 10-26-2021 End: 10-26-2021 Subsequent hospital visit by physician Haile Golden Work Phone: [facility] Start: 10-21-2021 Telephone encounter Moses Acevedo MD Work Phone: [facility] Comment on above: Appointment (a-scan reminder call) Start: 10-12-2021 End: 10-12-2021 Subsequent hospital visit by physician Haile Golden Work Phone: [facility] [place] [facility] Start: 09-28-2021 End: 09-28-2021 Subsequent hospital visit by physician Haile Golden Work Phone: [facility] [place] [facility] Start: 09-01-2021 ambulatory UNKNOWN [facility] Start: 08-31-2021 End: 08-31-2021 Subsequent hospital visit by physician Haile Golden Work Phone: [facility] [place] [facility] Start: 06-29-2021 End: 06-29-2021 Subsequent hospital visit by physician Haile Golden Work Phone: [facility] [place] [facility] Start: 06-22-2021 End: 06-22-2021 Subsequent hospital visit by physician Haile Golden Work Phone: [facility] [place] [facility] Start: 06-15-2021 End: 06-15-2021 Subsequent hospital visit by physician Haile Golden Work Phone: [facility] [place] [facility] Start: 06-08-2021 End: 06-08-2021 Subsequent hospital visit by physician Haile Golden Work Phone: [facility] [place] [facility] Start: 06-01-2021 End: 06-01-2021 Subsequent hospital visit by physician Haile Golden Work Phone: [facility] [place] [facility] Start: 05-25-2021 End: 05-25-2021 Subsequent hospital visit by physician Haile Golden Work Phone: [facility] [place] [facility] Start: 05-18-2021 End: 05-18-2021 Subsequent hospital visit by physician Haile Golden Work Phone: [facility] [place] [facility] Start: 05-04-2021 End: 05-04-2021 Subsequent hospital visit by physician Haile Golden Work Phone: [facility] [place] [facility] Start: 04-27-2021 End: 04-27-2021 Subsequent [facility] Start: 04-13-2021 End: 04-13-2021 Subsequent hospital visit by physician Haile Golden Work Phone: [facility] [place] [facility] Start: 03-30-2021 End: 03-30-2021 Subsequent hospital visit by physician Haile Golden [facility] Start: 03-23-2021 End: 03-23-2021 Subsequent hospital visit by physician Haile Gloden [facility] Start: 03-09-2021 End: 03-09-2021 Subsequent hospital visit by physician Haile Golden [facility] Start: 03-02-2021 End: 03-02-2021 Subsequent hospital visit by physician Haile Golden [facility] Start: 02-23-2021 End: 02-23-2021 Subsequent hospital visit by physician Haile Golden [facility] Start: 02-16-2021 End: 02-16-2021 Subsequent hospital visit by physician Haile Golden [facility] Start: 02-02-2021 End: 02-02-2021 Subsequent hospital visit by physician Haile Golden [facility] Start: 01-28-2021 End: 01-28-2021 Subsequent hospital visit by physician Ino He MD Work Phone: [facility] Start: 01-26-2021 End: 01-26-2021 Subsequent hospital visit by physician Haile Golden Work Phone: [facility] [place] [facility] Start: 01-25-2021 End: 01-25-2021 Subsequent hospital visit by physician Ino He MD Work Phone: [facility] Start: 01-21-2021 End: 01-21-2021 Subsequent hospital visit by physician Ino He MD Work Phone: [facility] Start: 01-19-2021 End: 01-19-2021 Subsequent hospital visit by physician Haile Golden Work Phone: [facility] Start: 01-18-2021 End: 01-18-2021 Subsequent hospital visit by physician Ino He MD Work Phone: [facility] Start: 01-10-2021 End: 01-10-2021 Subsequent hospital visit by physician Ino He MD Work Phone: [facility] Start: 01-05-2021 End: 01-05-2021 Subsequent hospital visit by physician Haile Golden Work Phone: [facility] Start: 12-31-2020 End: 12-31-2020 Subsequent hospital visit by physician Ino He MD Work Phone: [facility] Start: 12-30-2020 End: 12-31-2020 Subsequent hospital visit by physician Ino He MD Work Phone: [facility] Start: 12-29-2020 End: 12-29-2020 Subsequent hospital visit by physician Ino He MD Work Phone: [facility] Start: 12-29-2020 End: 12-29-2020 Subsequent hospital visit by physician Haile Golden Work Phone: [facility] Start: 12-27-2020 End: 12-27-2020 Subsequent hospital visit by physician Ino He MD Work Phone: [facility] Start: 12-24-2020 End: 12-24-2020 Subsequent hospital visit by physician Ino He MD Work Phone: [facility] Start: 12-23-2020 End: 12-23-2020 Subsequent hospital visit by physician Ino He MD Work Phone: [facility] Start: 12-22-2020 End: 12-22-2020 Subsequent hospital visit by physician Ino He MD Work Phone: [facility] Start: 12-22-2020 End: 12-22-2020 Subsequent hospital visit by physician Haile Golden Work Phone: [facility] Start: 12-15-2020 End: 12-15-2020 Subsequent hospital visit by physician Haile Golden Work Phone: [facility] Start: 12-14-2020 End: 12-14-2020 Subsequent hospital visit by physician Ino He MD Work Phone: [facility] Start: 12-10-2020 End: 12-10-2020 Subsequent hospital visit by physician Ino He MD Work Phone: [facility] Start: 12-09-2020 End: 12-09-2020 Subsequent hospital visit by physician Ino He MD Work Phone: [facility] Start: 12-08-2020 End: 12-08-2020 Subsequent hospital visit by physician Haile Golden Work Phone: [facility] Start: 12-03-2020 End: 12-03-2020 Subsequent hospital visit by physician Ino He MD Work Phone: [facility] Start: 12-02-2020 End: 12-03-2020 Subsequent hospital visit by physician Ino He MD Work Phone: [facility] Start: 12-01-2020 End: 12-01-2020 Subsequent hospital visit by physician Haile Golden Work Phone: [facility] Start: 11-30-2020 End: 11-30-2020 Subsequent hospital visit by physician Ino He MD Work Phone: [facility] Start: 11-29-2020 End: 11-29-2020 Subsequent hospital visit by physician Ino He MD Work Phone: [facility] Start: 11-24-2020 End: 11-24-2020 Subsequent hospital visit by physician [facility]ile [facility] Start: 11-23-2020 End: 11-23-2020 Subsequent hospital visit by physician Ino He MD Work Phone: [facility] Start: 11-17-2020 End: 11-17-2020 Subsequent hospital visit by physician Haile Golden Work Phone: [facility] Start: 11-10-2020 End: 11-10-2020 Subsequent hospital visit by physician Haile Golden Work Phone: [facility] Start: 11-03-2020 End: 11-03-2020 Subsequent hospital visit by physician Haile Golden Work Phone: [facility] Start: 10-27-2020 End: 10-27-2020 Subsequent hospital visit by physician Ino He Work Phone: [address] Comment on above: Malignant neoplasm o f endometrium (HCC) Start: 10-22-2020 End: 10-22-2020 Subsequent hospital visit by physician Ino He Work Phone: 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 Pre-Admit Testing Comment on above: Arrived Start: 09-22-2020 End: 09-22-2020 Subsequent hospital visit by physician Haile Golden Work Phone: [facility] [place] [facility] Start: 09-15-2020 End: 09-15-2020 Subsequent hospital visit by physician Haile Golden Work Phone: [facility] [place] [facility] Start: 09-08-2020 End: 09-08-2020 Subsequent hospital visit by physician Haile Golden Work Phone: [facility] [place] [facility] Start: 09-01-2020 End: 09-01-2020 Subsequent hospital visit by physician Haile Golden Work Phone: [facility] [place] [facility] Start: 08-25-2020 End: 08-25-2020 Subsequent hospital visit by physician Haile Golden Work Phone: [facility] [place] [facility] Start: 08-04-2020 End: 08-04-2020 Subsequent hospital visit by physician Haile Golden Work Phone: [facility] [place] [facility] Start: 07-21-2020 End: 07-21-2020 Subsequent hospital visit by physician Haile Golden Work Phone: [facility] [place] [facility] Start: 07-14-2020 End: 07-14-2020 Subsequent hospital visit by physician Haile Golden Work Phone: [facility] [place] [facility] Start: 07-07-2020 End: 07-07-2020 Subsequent hospital visit by physician Haile Golden Work Phone: [facility] [place] [facility] Start: 06-30-2020 End: 06-30-2020 Subsequent hospital visit by physician Haile Golden Work Phone: [facility] [place] [facility] Start: 06-23-2020 End: 06-23-2020 Subsequent hospital visit by physician Haile Golden Work Phone: [facility] [place] [facility] Start: 06-16-2020 End: 06-16-2020 Subsequent hospital visit by physician Haile Golden Work Phone: [facility] [place] [facility] Start: 06-09-2020 End: 06-09-2020 Subsequent hospital visit by physician Haile Golden Work Phone: [facility] [place] [facility] Start: 06-02-2020 End: 06-02-2020 Subsequent hospital visit by physician Haile Golden Work Phone: [facility] [place] [facility] Start: 05-31-2020 End: 05-31-2020 Subsequent hospital visit by physician Haile Golden Work Phone: [facility] [place] [facility] Start: 05-26-2020 End: 05-26-2020 Subsequent hospital visit by physician Haile Golden Work Phone: [facility] [place] [facility] Start: 05-19-2020 End: 05-19-2020 Subsequent hospital visit by physician Haile Golden Work Phone: [facility] [place] [facility] Start: 05-12-2020 End: 05-12-2020 Subsequent hospital visit by physician [facility] Start: 05-05-2020 End: 05-05-2020 Subsequent hospital visit by physician Haile Golden Work Phone: [facility] [place] [facility] Start: 04-28-2020 End: 04-28-2020 Subsequent hospital visit by physician Haile Gloden Work Phone: [facility] [place] [facility] Start: 04-21-2020 End: 04-21-2020 Subsequent hospital visit by physician Haile Golden Work Phone: [facility] [place] [facility] Start: 04-14-2020 End: 04-14-2020 Subsequent hospital visit by physician Haile Golden Work Phone: [facility] [place] [facility] Start: 04-07-2020 End: 04-07-2020 Subsequent hospital visit by physician Haile Golden Work Phone: [facility] [place] [facility] Start: 04-01-2020 End: 04-01-2020 Subsequent hospital visit by physician Clare Bui Work Phone: [facility] [place] [facility] Start: 03-24-2020 End: 03-24-2020 Subsequent hospital visit by physician Haile Golden Work Phone: [facility] [place] [facility] Start: 03-17-2020 End: 03-17-2020 Subsequent hospital visit by physician Haile Golden Work Phone: [facility] [place] [facility] Start: 03-10-2020 End: 03-10-2020 Subsequent hospital visit by physician Haile Golden Work Phone: [facility] [place] [facility] Start: 03-03-2020 End: 03-03-2020 Subsequent hospital visit by physician Haile Golden Work Phone: [facility] [place] [facility] Start: 02-25-2020 End: 02-25-2020 Subsequent hospital visit by physician Haile Golden Work Phone: [facility] [place] [facility] Start: 02-18-2020 End: 02-18-2020 Subsequent hospital visit by physician Haile Golden Work Phone: [facility] [place] [facility] Start: 02-11-2020 End: 02-11-2020 Subsequent hospital visit by physician Haile Golden Work Phone: [facility] [place] [facility] Start: 02-04-2020 End: 02-04-2020 Subsequent hospital visit by physician Haile Golden Work Phone: [facility] [place] [facility] Start: 01-28-2020 End: 01-28-2020 Subsequent hospital visit by physician Haile Golden Work Phone: [facility] [place] [facility] Start: 01-21-2020 End: 01-21-2020 Subsequent hospital visit by physician Haile Golden Work Phone: [facility] [place] [facility] Start: 01-07-2020 End: 01-07-2020 Subsequent hospital visit by physician Haile Golden Work Phone: [facility] [place] [facility] Start: 12-30-2019 End: 12-30-2019 Subsequent hospital visit by physician Haile Golden Work Phone: [facility] [place] [facility] Start: 12-24-2019 End: 12-24-2019 Subsequent hospital visit by physician Haile Golden Work Phone: [facility] [place] [facility] Start: 12-10-2019 End: 12-10-2019 Subsequent hospital visit by physician Haile Golden Work Phone: [facility] [place] [facility] Start: 12-03-2019 End: 12-03-2019 Subsequent hospital visit by physician Haile Golden Work Phone: [facility] [place] [facility] Start: 11-26-2019 End: 11-26-2019 Subsequent hospital visit by physician Haile Golden Work Phone: [facility] [place] [facility] Start: 11-12-2019 End: 11-12-2019 Subsequent hospital visit by physician Haile Golden Work Phone: [facility] [place] [facility] Start: 11-05-2019 End: 11-05-2019 Subsequent hospital visit by physician Haile Golden Work Phone: [facility] [place] [facility] Start: 10-29-2019 End: 10-29-2019 Subsequent hospital visit by physician Haile Golden Work Phone: [facility] [place] [facility] Start: 10-22-2019 End: 10-22-2019 Subsequent hospital visit by physician Haile Golden Work Phone: [facility] [place] [facility] Start: 10-08-2019 End: 10-08-2019 Subsequent hospital visit by physician Haile Golden Work Phone: [facility] [place] [facility] Start: 10-01-2019 End: 10-01-2019 Subsequent hospital visit by physician Haile Golden Work Phone: [facility] [place] [facility] Start: 09-24-2019 End: 09-24-2019 Subsequent hospital visit by physician Haile Golden Work Phone: [facility] [place] [facility] Start: 09-19-2019 End: 09-19-2019 Subsequent hospital visit by physician Haile Golden Work Phone: [facility] [place] [facility] Start: 09-10-2019 End: 09-10-2019 Subsequent hospital visit by physician Haile Golden Work Phone: [facility] [place] [facility] Start: 09-09-2019 End: 09-09-2019 Subsequent hospital visit by physician Clare Bui Work Phone: [facility] [place] [facility] Start: 09-03-2019 End: 09-03-2019 Subsequent hospital visit by physician Haile Golden Work Phone: [facility] [place] [facility] Start: 08-27-2019 End: 08-27-2019 Subsequent hospital visit by physician Haile Golden Work Phone: [facility] [place] [facility] Start: 08-13-2019 End: 08-13-2019 Subsequent hospital visit by physician Haile Golden Work Phone: [facility] [place] [facility] Start: 08-06-2019 End: 08-06-2019 Subsequent hospital visit by physician Haile Golden Work Phone: [facility] [place] [facility] Start: 07-30-2019 End: 07-30-2019 Subsequent hospital visit by physician Haile Golden Work Phone: [facility] [place] [facility] Start: 07-21-2019 End: 07-21-2019 Subsequent hospital visit by physician Haile Golden Work Phone: [facility] [place] [facility] Start: 07-14-2019 End: 07-14-2019 Subsequent hospital visit by physician Haile Golden Work Phone: [facility] [place] [facility] Start: 06-25-2019 End: 06-25-2019 Subsequent hospital visit by physician Haile Golden Work Phone: [facility] [place] [facility] Start: 06-18-2019 End: 06-18-2019 Subsequent hospital visit by physician Haile Golden Work Phone: [facility] [place] [facility] Start: 06-04-2019 End: 06-04-2019 Subsequent hospital visit by physician Haile Golden Work Phone: [facility] Start: 05-28-2019 End: 05-28-2019 Subsequent hospital visit by physician Haile Golden Work Phone: [facility] Start: 05-16-2019 End: 05-16-2019 Subsequent hospital visit by physician Haile Golden Work Phone: [facility] Start: 05-09-2019 End: 05-09-2019 Subsequent hospital visit by physician Haile Golden Work Phone: [facility] Start: 05-02-2019 End: 05-02-2019 Subsequent hospital visit by physician Haile Golden Work Phone: [facility] Start: 04-25-2019 End: 04-25-2019 Subsequent hospital visit by physician Haile Golden Work Phone: [facility] Start: 04-11-2019 End: 04-11-2019 Subsequent hospital visit by physician Haile Golden Work Phone: [facility] Start: 04-04-2019 End: 04-04-2019 Subsequent hospital visit by physician Haile Golden Work Phone: [facility] Start: 04-03-2019 End: 04-03-2019 Subsequent hospital visit by physician Jorge Alberto Palumbo Work Phone: [facility] Start: 03-28-2019 End: 03-28-2019 Subsequent hospital visit by physician Haile Golden Work Phone: [facility] Start: 03-14-2019 End: 03-14-2019 Subsequent hospital visit by physician Haile Golden Work Phone: [facility] Start: 03-07-2019 End: 03-07-2019 Subsequent hospital visit by physician Haile Golden Work Phone: [facility] Start: 02-28-2019 End: 02-28-2019 Subsequent hospital visit by physician Haile Golden Work Phone: [facility] Procedures Date Procedure Procedure Detail Performing [...] lds trcg only w/o i&r Jeremiah Coffman SHOWROOM EXECUTIVE DIRECTOR Work Phone: Start: 11-02-2024 Glucose quantitative blood xcpt reagent strip Damon Vu MD Work Phone: Start: 11-02-2024 Us retroperitoneal r eal time w/image complete Wilner Kingston MD Work Phone: Start: 11-02-2024 Assay of ammonia Wilner Kingston MD Work Phone: Start: 11-02-2024 Basic metabolic pane l calcium total Jeremiah Coffman SHOWROOM EXECUTIVE DIRECTOR Work Phone: Start: 11-02-2024 Manual Differential panel - Blood Jeremiah Coffman SHOWROOM EXECUTIVE DIRECTOR Work Phone: Start: 11-02-2024 Thyrotropin [Units/v olume] in Serum or Plasma Damon Vu MD Work Phone: Start: 11-02-2024 Ecg routine ecg w/le ast 12 lds trcg only w/o i&r Jeremiah Coffman SHOWROOM EXECUTIVE DIRECTOR Work Phone: Start: 11-02-2024 Basic metabolic pane [...] abdomen & pelvis w/contrast material Anjana Meadows INSURANCE CLAIM AUDITOR - OPTICAL ADVISOR Work Phone: Start: 11-13-2023 End: 11-13-2023 Computerized ophthalmic imaging retina Mason Johnston MD Work Phone: Start: 11-02-2023 Hemoglobin glycosylated a1c Lyric Cruz INSURANCE CLAIM AUDITOR - OPTICAL ADVISOR Work Phone: Start: 10-26-2023 Visual field xm uni/ bi w/interp extended exam Moses Acevedo MD Work Phone: Start: 05-09-2023 Hemoglobin glycosylated a1c Bridget Alcantara MD Work Phone: Start: 04-10-2023 Computerized ophthal cheli imaging optic nerve Moses Acevedo MD Work Phone: Start: 01-19-2023 Hemoglobin glycosylated a1c Lyric Black Anthony INSURANCE CLAIM AUDITOR - OPTICAL ADVISOR Work Phone: Start: 10-06-2022 Lipid 1996 panel - S akilah or Plasma Jerome Perdomo MD Work Phone: Start: 10-06-2022 Thyrotropin [Units/v olume] in Serum or Plasma Jerome Perdomo MD Work Phone: Start: 05-15-2022 Thyrotropin [Units/v olume] in Serum or Plasma Lyric Cruz INSURANCE CLAIM AUDITOR - OPTICAL ADVISOR Work Phone: Start: 04-06-2022 Computerized ophthal cheli [...] DTaP/Tdap/Td Vaccines (2 - Td or Tdap) [facility] Start: 06-28-2033 Urine microalbumin profile DTaP,Tdap,Td Vaccine (2 - Td or Tdap) [facility] Start: 06-28-2033 [facility] Start: 05-19-2026 Creatinine measurement [facility] Start: 05-19-2026 Potassium measurement [facility] Start: 05-11-2026 Hemoglobin A1c measurement [facility] Start: 11-05-2025 Creatinine measurement Creatinine Level [facility] Start: 11-05-2025 Diabetes: Estimated Glomerular Filtration Rate for Kidney Health Diabetes: Estimated Glomerular Filtration Rate for Kidney Health [facility] Start: 11-05-2025 Potassium measurement Potassium Level [facility] Start: 11-03-2025 Echocardiography Echocardiogram [facility] Start: 11-03-2025 [facility] Start: 11-02-2025 Hemoglobin A1c measurement Diabetes: Hemoglobin A1C [facility] Start: 11-02-2025 Thyroid stimulating hormone measurement [facility] Start: 07-22-2025 Glaucoma screening [facility] Start: 05-02-2025 Glaucoma screening Dilated Retinal Exam [facility] Start: 04-29-2025 Glaucoma screening Diabetes: Retinopathy Screening [facility] Start: 04-29-2025 Hemoglobin A1c measurement Diabetes: Hemoglobin A1C [facility] Start: 04-29-2025 Lipid panel [facility] Start: 04-29-2025 Thyroid stimulating hormone measurement TSH Level [facility] Start: 03-23-2025 Influenza vaccination Influenza Vaccine (#1) [facility] Start: 03-23-2025 [facility] Start: 03-19-2025 Medicare Annual Wellness (AWV) Medicare Annual Wellness (AWV) [facility] Start: 03-19-2025 [facility] Start: 02-23-2025 End: 02-23-2025 Patient encounter procedure 02/23/2025 3:00 PM EDT [facility] [place] [address] [facility] [address] [id number] Seema Hernandez, INSURANCE CLAIM AUDITOR - OPTICAL ADVISOR [address] [facility] [address] [place], [place] [address] [facility] Start: 02-17-2025 Hemoglobin A1c measurement Diabetes: Hemoglobin A1C [facility] Start: 02-17-2025 Lipid panel Lipid Panel [facility] Start: 02-17-2025 Thyroid stimulating hormone measurement TSH Level [facility] Start: 01-26-2025 End: 01-26-2025 Patient encounter procedure 01/26/2025 2:00 PM EDT Office Visit [facility] [address] [place] [phone] Seema Hernandez INSURANCE CLAIM AUDITOR - OPTICAL ADVISOR [address] [place] [address] [facility] Start: 2025 End: 2025 Patient encounter procedure 2025 11:00 AM EDT Appointment [facility] [address] [place] [phone] Cuauhtemoc Stubbs MD [address] [facility] [address] [place] [address] [facility] Start: 12-23-2024 End: 12-23-2025 PET+CT Bone from skull base to mid-thigh W [id number] IV PET/CT skull base to mid thigh Imaging Routine Multiple lung nodules Endometrial cancer (CMS/HCC) (HCC) Expected: 12/23/2024, Expires: 12/23/2025 [facility] Work Phone: Comment on above: Expected: 12/23/2024, Expires: Start: 12-22-2024 End: 12-22-2024 Patient encounter procedure [facility] Start: 12-12-2024 End: 12-12-2024 Patient encounter procedure 12/12/2024 3:30 PM EDT Office Visit [facility] [place] [address] [place] [phone] Carli Aldrich, INSURANCE CLAIM AUDITOR - OPTICAL ADVISOR [address] [place], [place] [phone] [facility] [place] Start: 12-10-2024 End: 12-10-2025 CT Guidance for biopsy of Retroperitoneum CT guided biopsy abdomen or retroperitoneum Imaging Routine Endometrial cancer (CMS/HCC) (HCC) Multiple lung nodules Expected: 12/10/2024, Expires: 12/10/2025 [employer] Work Phone: Comment on above: Expected: 12/10/2024, Expires: Start: 12-08-2024 End: 12-08-2025 CT Guidance for biopsy of Lung CT guided percutaneous lung Imaging Routine Endometrial cancer (CMS/HCC) (HCC) Multiple lung nodules Expected: 12/08/2024, Expires: 12/08/2025 [employer] Work Phone: Comment on above: Expected: 12/08/2024, Expires: Start: 12-03-2024 End: 12-03-2024 Patient encounter procedure 12/03/2024 9:15 AM EDT Appointment [facility] [place] [address] [place] [phone] Jerome Perdomo MD [address] [place] [phone] [facility] [place] Start: 12-02-2024 End: 12-02-2024 Patient encounter procedure 12/02/2024 10:00 AM EDT Office Visit [facility] [place] [address] [place] [phone] Carli Aldrich, AMAURY - OPTICAL ADVISOR [address] [place] [address] [facility] [place] Start: 11-27-2024 End: 05-06-2025 Camera fundoscopy FUNDUS PHOTOS OU (BOTH EYES) [facility] Imaging Routine 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 macular edema, with long-term current use of insulin (HCC) Expected: 11/27/2024, Expires: 05/06/2025 [facility] Comment on above: Expected: 11/27/2024, Expires: Start: 11-27-2024 End: 05-06-2025 OCT MACULA CIRRUS OU (BOTH EYES) OCT MACULA CIRRUS OU (BOTH EYES) [facility] Imaging Routine 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 macular edema, with long-term current use of insulin (HCC) Expected: 11/27/2024, Expires: 05/06/2025 [facility] Work Phone: Comment on above: Expected: 11/27/2024, Expires: Start: 11-12-2024 Glaucoma screening Dilated Retinal Exam [facility] Start: 11-11-2024 Subsequent hospital visit by physician 11/11/2024 8:30 AM EDT Hospital Encounter [facility] [address] [place] [address] Christy Leach MD [address] [facility] [address] [place] [phone] [facility] 1 [facility] Start: 11-11-2024 End: 11-11-[address] [facility] 1 [facility] Start: 11-01-2024 Hemoglobin A1c measurement Diabetes: Hemoglobin A1C [facility] Start: 10-31-2024 End: 10-31-2024 Patient encounter procedure 10/31/2024 3:00 PM EDT Office Visit [facility] [address] [place] [address] Moses Acevedo MD [address] [place] [address] Return in about 6 months (around 10/31/2024) for IOP check and HVF 24-2 OU . [facility] Comment on above: Return in about 6 months (around 11/01/19 25) for IOP check and HVF 24-2 OU . Start: 10-27-2024 End: 10-27-2026 US Heart Transthoracic Transthoracic echocardiogram (TTE) complete with contrast, bubble, strain, and 3D PRN CV Echocardiography Routine Heart failure, unspecified (HCC) Nonrheumatic aortic (valve) stenosis Other general symptoms and signs Expected: 10/27/2024 (Approximate), Expires: 10/27/2026 [facility] Work Phone: Comment on above: Expected: 10/27/2024 (Approximate), Expi res: 10/27/2026 Start: 09-17-2024 Diabetes: Urine Albumin-Creatinine Ratio for Kidney Health Diabetes: Urine Albumin-Creatinine Ratio for Kidney Health [facility] Start: 09-12-2024 End: 09-12-2024 Patient encounter procedure [facility] Start: 09-01-2024 End: 09-01-2024 Patient encounter procedure 09/01/2024 3:00 PM EST Office Visit [facility] Gynecologic [facility] [place] [address] [place] [address] Azra Buck, AMAURY - OPTICAL ADVISOR [address] [place] [address] [facility] [place] Start: 08-19-2024 End: 08-19-2024 Patient encounter procedure [facility] Start: 06-24-2024 End: 06-24-2024 Patient encounter procedure 06/24/2024 10:30 AM EST Office Visit [facility] [address] [place] [address] Mason Johnston MD [address] [place], [place] [phone] Return in about 6 months (around 05/14/2024). pt requested later appt [facility] Comment on above: Return in about 6 months (around 024). pt requested later appt Start: 05-21-2024 End: 05-21-2024 Patient encounter procedure [facility] [place] Start: 05-20-2024 Hemoglobin A1c measurement HbA1C [facility] Start: 05-15-2024 Glaucoma screening Dilated Retinal Exam [facility] Start: 05-13-2024 End: 05-13-2024 Patient encounter procedure 05/13/2024 2:30 PM EDT Office Visit [facility] [address] [place] [address] Mason Johnston MD [address] [place], [place] [phone] Return in about 6 months (around 05/14/2024). [facility] Comment on above: Return in about 6 months (around 024). Start: 05-09-2024 Hemoglobin A1c measurement Diabetes: Hemoglobin A1C [facility] Start: 05-07-2024 End: 05-07-2024 Patient encounter procedure 05/07/2024 1:00 PM EDT Appointment [facility] [place] [phone] Jerome Perdomo MD [address] [place] [phone] [facility] [place] Start: 05-02-2024 End: 05-02-2024 Patient encounter procedure 05/02/2024 3:00 PM EDT Office Visit [facility] [address] [place], [place] [address] Moses Acevedo MD [address] [place] [address] Return in about 6 months (around 04/26/2024) for Complete eye exam with OCT nerve OU . [facility] Comment on above: Return in about 6 months (around 04/26/20 24) for Complete eye exam with OCT nerve OU . Start: 04-23-2024 End: 04-23-2024 Patient encounter procedure [facility] Start: 04-10-2024 Hepatitis C antibody, confirmatory test Dilated Retinal Exam [facility] Start: 04-09-2024 End: 04-09-2024 Patient encounter procedure 04/09/2024 1:00 PM EDT Appointment [facility] [address] [place] [address] Jerome Perdomo MD [address] [place] [address] [facility] Start: 03-26-2024 End: 03-26-2024 Patient encounter procedure [facility] Start: 03-23-2024 COVID-19 Vaccine ( season) COVID-19 Vaccine ( season) [facility] Start: 03-23-2024 COVID-19 Vaccine ( season) COVID-19 Vaccine ( season) [facility] Start: 03-23-2024 Covid-19 Vaccine () Covid-19 Vaccine () [facility] Start: 03-23-2024 Influenza vaccination [facility] Start: 03-19-2024 End: 03-19-2024 Patient encounter procedure 03/19/2024 3:30 PM EDT Office Visit [facility] Endocrinology [address] [facility] [address] [place] [phone] Lyric Cruz, INSURANCE CLAIM AUDITOR - OPTICAL ADVISOR [address] [place], [place] [phone] [facility] Start: 03-14-2024 End: 03-14-2024 Patient encounter procedure 03/14/2024 3:00 PM EDT Appointment [facility] [address] [facility] [address] [place] [phone] Christy Leach MD [address] [facility] [address] [place] [phone] [facility] Start: 03-12-2024 End: 03-12-2024 Patient encounter procedure 03/12/2024 1:00 PM EDT Appointment [facility] [address] [place] [address] Jerome Perdomo MD [address] [place] [address] [facility] Start: 03-04-2024 End: 03-04-2024 Patient encounter procedure 03/04/2024 3:30 PM EDT Office Visit [facility] Gynecologic Oncology [address] [facility] [address] [place] [phone] Anjana Meadows APRN [facility] [address] [facility] [address] [place] [address] [facility] Gynecologic Oncology Start: 02-27-2024 End: 02-27-2024 Patient encounter procedure 02/27/2024 10:45 AM EDT Appointment [facility] [address] [place] [address] Jerome Perdomo MD [address] [place] [address] [facility] Start: 02-14-2024 Glaucoma screening Diabetes: Retinopathy Screening [facility] Start: 02-13-2024 End: 02-13-2024 Patient encounter procedure 02/13/2024 1:00 PM EDT Appointment [facility] [address] [place] [address] Jerome Perdomo MD [address] [place] [address] [facility] Start: 02-01-2024 Hemoglobin A1c measurement HbA1C [facility] Start: 01-30-2024 End: 01-30-2024 Patient encounter procedure 01/30/2024 11:00 AM EDT Appointment [facility] [address] [place] [address] Jerome Perdomo MD [address] [place] [address] [facility] Start: 01-20-2024 Hemoglobin A1c measurement Diabetes: Hemoglobin A1C [facility] Start: 01-16-2024 End: 01-16-2024 Patient encounter procedure 01/16/2024 3:15 PM EDT Appointment [facility] [address] [place] [address] Jerome Perdomo MD [address] [place] [address] [facility] Start: 2024 End: 2024 Patient encounter procedure 2024 11:00 AM EDT Appointment [facility] [address] [place] [address] Jerome Perdomo MD [address] [place] [address] [facility] Start: 12-20-2023 End: 12-20-2023 Patient encounter procedure 12/20/2023 3:15 PM EDT Appointment [facility] [address] [place] [address] Jerome Perdomo MD [address] [place] [address] [facility] Start: 12-05-2023 End: 12-05-2023 Patient encounter procedure 12/05/2023 11:00 AM EDT Appointment [facility] [address] [place] [address] Jerome Perdomo MD [address] [place] [address] [facility] Start: 12-04-2023 End: 12-04-2023 Patient encounter procedure 12/04/2023 10:30 AM EDT Appointment [facility] 1 [facility] 1 [place] [phone] [place] [address] Start: 11-21-2023 End: 11-21-2023 Patient encounter procedure 11/21/2023 3:15 PM EDT Appointment [facility] [address] [place] [address] Jerome Perdomo MD [address] [place] [address] [facility] Start: 11-07-2023 End: 11-07-2023 Patient encounter procedure 11/07/2023 11:15 AM EDT Appointment [facility] [address] [place] [address] Jerome Perdomo MD [address] [place] [address] [facility] Start: 11-02-2023 End: 11-02-2023 Patient encounter procedure 11/02/2023 3:30 PM EDT Office Visit [facility] Endocrinology 1 [facility] [address] [place] [phone] Lyric Cruz, INSURANCE CLAIM AUDITOR - OPTICAL ADVISOR [address] [place], [place] [phone] [facility] Endocrinology Start: 11-01-2023 End: 11-01-2023 Patient encounter procedure 11/01/2023 3:30 PM EDT Office Visit [facility] Gynecologic Oncology [address] [facility] [address] [place] [phone] Jaqueline Grayson, INSURANCE CLAIM AUDITOR - OPTICAL ADVISOR [address] [facility] [address] [place] [address] [facility] Gynecologic Oncology Start: 11-01-2023 End: 10-31-2024 Creatinine [Mass/volume] in Serum or Plasma Creatinine, Serum Lab Routine Endometrial cancer (CMS/HCC) (HCC) Expected: 11/01/2023 (Approximate), Expires: 10/31/2024 [facility] Comment on above: Expected: 11/01/2023 (Approximate), Expi res: 10/31/2024 Start: 11-01-2023 End: 10-31-2024 CT Abdomen and Pelvis W contrast IV CT abdomen pelvis w contrast Imaging Routine Endometrial cancer (CMS/HCC) (HCC) Expected: 11/01/2023, Expires: 10/31/2024 [facility] Work Phone: Comment on above: Expected: 11/01/2023, Expires: Start: 10-24-2023 End: 10-24-2023 Patient encounter procedure [facility] Start: 10-10-2023 End: 10-10-2023 Patient encounter procedure [facility] Start: 10-07-2023 Diabetes: Estimated Glomerular Filtration Rate for Kidney Health Diabetes: Estimated Glomerular Filtration Rate for Kidney Health [facility] Start: 10-07-2023 Diabetes: Urine Albumin-Creatinine Ratio for Kidney Health Diabetes: Urine Albumin-Creatinine Ratio for Kidney Health [facility] Start: 10-07-2023 Hepatitis B screening Urine Albumin:Creatinine Ratio [facility] Start: 10-07-2023 Hepatitis B surface antibody level LDL Cholesterol [facility] Start: 10-07-2023 Lipid panel Lipid Panel [facility] Start: 10-07-2023 Thyroid stimulating hormone measurement TSH Level [facility] Start: 10-07-2023 Urine screening for protein Diabetes: Urine Protein Screening [facility] Start: 09-26-2023 Glaucoma screening Diabetes: Retinopathy Screening [facility] Start: 09-26-2023 End: 09-26-2023 Patient encounter procedure 09/26/2023 11:00 AM EST Appointment [facility] [address] [place] [address] Jerome Perdomo MD [address] [place] [address] [facility] Start: 09-13-2023 End: 09-13-2023 Patient encounter procedure 09/13/2023 3:15 PM EST Appointment [facility] [address] [place] [address] Jerome Perdomo MD [address] [place] [address] [facility] Start: 09-12-2023 End: 09-12-2023 Patient encounter procedure 09/12/2023 3:30 PM EST Office Visit [facility] Endocrinology [address] [phone] Lyric Cruz, INSURANCE CLAIM AUDITOR - OPTICAL ADVISOR [address] [place], [place] [phone] [facility] Endocrin[facility] Start: 09-11-2023 End: 09-11-2023 Patient encounter procedure 09/11/2023 2:30 PM EST Appointment [facility] [address] [place] [address] Ino He MD [address] [id number] [facility] Start: 08-29-2023 End: 08-29-2023 Patient encounter procedure 08/29/2023 11:00 AM EST Appointment [facility] [address] [place] [address] Jerome Perdomo MD [address] [place] [address] [facility] Start: 08-15-2023 End: 08-15-2023 Patient encounter procedure 08/15/2023 3:15 PM EST Appointment [facility] [address] [place] [phone] Jerome Perdomo MD [address] [place], [address] [place] [address] [facility] Start: 08-09-2023 End: 05-09-2024 Comprehensive metabolic 1998 panel - Serum or Plasma Comprehensive metabolic panel Lab Routine Type 2 diabetes mellitus with hyperglycemia, with long-term current use of insulin (CMS/HCC) (HCC) Expected: 08/09/2023 (Approximate), Expires: 05/09/2024 [facility] Work Phone: Comment on above: Expected: 08/09/2023 (Approximate), Expi res: 05/09/2024 Start: 08-09-2023 End: 05-09-2024 Hemoglobin A1c measurement [facility] Comment on above: Expected: 08/09/2023 (Approximate), Expi res: 05/09/2024 Start: 08-09-2023 End: 05-09-2024 Lipid 1996 panel - Serum or Plasma Lipid panel Lab Routine Mixed hyperlipidemia Expected: 08/09/2023 (Approximate), Expires: 05/09/2024 [facility] Comment on above: Expected: 08/09/2023 (Approximate), Expi res: 05/09/2024 Start: 08-09-2023 End: 05-09-2024 Thyrotropin [Units/volume] in Serum or Plasma TSH Lab Routine 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 Expected: 08/09/2023 (Approximate), Expires: 05/09/2024 [facility] Comment on above: Expected: 08/09/2023 (Approximate), Expi res: 05/09/2024 Start: 08-09-2023 End: 05-09-2024 Thyroxine (T4) free [Mass/volume] in Serum or Plasma T4, free Lab Routine 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 Expected: 08/09/2023 (Approximate), Expires: 05/09/2024 [facility] Comment on above: Expected: 08/09/2023 (Approximate), Expi res: 05/09/2024 Start: 08-01-2023 End: 08-01-2023 Patient encounter procedure 08/01/2023 11:00 AM EST Appointment [facility] [address] [place] [address] Jerome Perdomo MD [address] [place] [address] [facility] Start: 07-23-2023 Advance Directive Discussion Advance Directive Discussion [facility] Start: 07-23-2023 Behavioral Health Screening Behavioral Health Screening [facility] Start: 07-18-2023 End: 07-18-2023 Patient encounter procedure 07/18/2023 11:00 AM EST Appointment [facility] [address] [place] [address] Jerome Perdomo MD [address] [place] [address], [address] [place] [address] [facility] Start: 07-04-2023 End: 07-04-2023 Patient encounter procedure 07/04/2023 3:15 PM EST Appointment [facility] [address] [place] [address] Jerome Perdomo MD [address] [place] [address], [address] [place] [address] [facility] Start: 06-20-2023 End: 06-20-2023 Patient encounter procedure 06/20/2023 11:00 AM EST Appointment [facility] [address] [place] [address] Jerome Perdomo MD [address] [place] [address], [address] [place] [address] [facility] Start: 06-06-2023 End: 06-06-2023 Patient encounter procedure 06/06/2023 3:15 PM EST Appointment [facility] [address] [place] [address] Jerome Perdomo MD [address] [place] [address] [facility] Start: 05-23-2023 End: 05-23-2023 Patient encounter procedure 05/23/2023 11:00 AM EDT Appointment [facility] [address] [place] [address] Jerome Perdomo MD [address] [place] [address] [facility] Start: 05-15-2023 Thyroid stimulating hormone measurement TSH Level [facility] Start: 05-11-2023 End: 05-11-2023 Clinical Support 05/11/2023 11:00 AM EDT Clinical Support [facility] Endocrinology [address] [place] [phone] [facility] Start: 05-09-2023 End: 05-09-2023 Patient encounter procedure [facility] Start: 05-08-2023 End: 05-08-2023 Patient encounter procedure 05/08/2023 11:00 AM EDT Appointment [facility] [address] [place] [address] Jerome Perdomo MD [address] [place] [address] [facility] Start: 04-30-2023 End: 04-30-2023 Patient encounter procedure [facility] Start: 04-25-2023 End: 04-25-2023 Patient encounter procedure 04/25/2023 11:00 AM EDT Appointment [facility] [address] [place] [address] Jerome Perdomo MD [address] [place] [address], [address] [place] [address] [facility] Start: 04-21-2023 Hemoglobin A1c/Hemoglobin.total in Blood HbA1C [facility] Start: 04-17-2023 End: 04-17-2023 Patient encounter procedure 04/17/2023 11:00 AM EDT Appointment [facility] [address] [place] [address] Jerome Perdomo MD [address] [place] [address], [address] [place] [address] [facility] Start: 04-11-2023 End: 04-11-2023 Patient encounter procedure 04/11/2023 11:00 AM EDT Appointment [facility] [address] [place] [address] Jerome Perdomo MD [address] [place] [address], [address] [place] [address] [facility] Start: 04-06-2023 Diabetic retinal exam Diabetic retinal exam [facility] Start: 04-06-2023 Hepatitis C antibody, confirmatory test DILATED RETINAL EXAM [facility] Start: 03-28-2023 End: 03-28-2023 Patient encounter procedure 03/28/2023 11:00 AM EDT Appointment [facility] [address] [place] [address] Jerome Perdomo MD [address] [place] [address], [address] [place] [address] [facility] Start: 03-23-2023 COVID-19 Vaccine ( season) COVID-19 Vaccine () [facility] Start: 03-23-2023 Influenza vaccination Influenza Vaccine (#1) [facility] Start: 03-23-2023 End: 03-23-2023 Clinical Support 03/23/2023 10:00 AM EDT Clinical Support [facility] Endocrinology [address] [place] [phone] [facility] Start: 03-15-2023 Medicare Annual Wellness (AWV) Medicare Annual Wellness (AWV) [facility] Start: 03-14-2023 End: 03-14-2023 Patient encounter procedure 03/14/2023 11:00 AM EDT Appointment [facility] [address] [place] [address] Jerome Perdomo MD [address] [place] [address] [facility] Start: 03-02-2023 End: 03-02-2023 Patient encounter procedure 03/02/2023 2:00 PM EDT Appointment [facility] [address] [place] [address] Ino He MD [address] [facility] [address] [id number] [facility] Start: 02-28-2023 End: 02-28-2023 Patient encounter procedure 02/28/2023 11:00 AM EDT Appointment [facility] [address] [place] [address] Jerome Perdomo MD [address] [place] [address] [facility] Start: 02-17-2023 Urine screening for protein Diabetes: Urine Protein Screening [facility] Start: 02-14-2023 End: 02-14-2023 Patient encounter procedure 02/14/2023 11:00 AM EDT Appointment [facility] [address] [place] [address] Jerome Perdomo MD [address] [place], [place] [id number] [facility] Start: 02-13-2023 Diabetic retinal exam Diabetic retinal exam [facility] Start: 02-13-2023 Glaucoma screening Diabetes: Retinopathy Screening [facility] Start: 02-13-2023 Lipid panel Lipids [facility] Start: 02-13-2023 Thyroid stimulating hormone measurement TSH Level [facility] Start: 01-31-2023 End: 01-31-2023 Patient encounter procedure 01/31/2023 11:00 AM EDT Appointment [facility] [address] [place] [address] Jerome Perdomo MD [address] [place], [place] [phone] [facility] Start: 01-19-2023 End: 01-19-2023 Patient encounter procedure [facility] Endocrin[facility] Start: 01-17-2023 End: 01-17-2023 Patient encounter procedure [facility] Start: 01-06-2023 Hemoglobin A1c measurement Diabetes: Hemoglobin A1C [facility] Start: 01-03-2023 End: 01-03-2023 Patient encounter procedure 01/03/2023 Appointment Wound Care [facility] Start: 12-20-2022 End: 12-20-2022 Patient encounter procedure 12/20/2022 Appointment Wound Care Jerome Perdomo MD [address] [place] [address] [facility] Start: 12-06-2022 End: 12-06-2022 Patient encounter procedure 12/06/2022 Appointment Wound Care [facility] Start: 11-22-2022 End: 11-22-2022 Patient encounter procedure 11/22/2022 Appointment Wound Care Jerome Perdomo MD [address] [place], [place] [id number] [facility] Start: 11-08-2022 End: 11-08-2022 Patient encounter procedure 11/08/2022 Appointment Wound Care [facility] Start: 11-03-2022 End: 11-03-2022 Patient encounter procedure 11/03/2022 Office Visit Gynecologic Oncology Jaqueline Grayson, INSURANCE CLAIM AUDITOR - OPTICAL ADVISOR [address] [address] [facility] Gynecologic On[facility] Start: 10-25-2022 End: 10-25-2022 Patient encounter procedure 10/25/2022 Appointment Wound Care Jerome Perdomo MD [address] [place], [place] [phone] [facility] Start: 10-11-2022 End: 10-11-2022 Patient encounter procedure 10/11/2022 Appointment Wound Care [facility] Start: 10-06-2022 End: 10-06-2022 Patient encounter procedure 10/06/2022 Office Visit Endocrinology Lyric Cruz, INSURANCE CLAIM AUDITOR - OPTICAL ADVISOR [address] [place] [address] [facility] [place] Start: 10-05-2022 Hemoglobin A1c measurement Diabetes: Hemoglobin A1C [facility] Start: 09-27-2022 End: 09-27-2022 Patient encounter procedure 09/27/2022 Appointment Wound Care Jerome Perdomo MD [address] [place] [address] [facility] Start: 09-15-2022 End: 09-15-2022 Patient encounter procedure 09/15/2022 Appointment Radiation Oncology Ino He MD [address] [facility] [address] [place] [address] [facility] Start: 09-13-2022 Pneumococcal 65+ years Vaccine (2 - PCV) Pneumococcal 65+ years Vaccine (2 - PCV) [facility] Start: 09-13-2022 End: 09-13-[address] [facility] Start: 08-30-2022 End: 08-30-2022 Patient encounter procedure 08/30/2022 Appointment Wound Care Jerome Perdomo MD [address] [place] [place], [place] [phone] [facility] Start: 08-17-2022 COVID-19 Vaccine (5 - Pfizer series) COVID-19 Vaccine (5 - Pfizer series) [facility] Start: 08-16-2022 End: 08-16-2022 Patient encounter procedure 08/16/2022 Appointment Wound Care [facility] Start: 08-05-2022 Hepatitis C antibody, confirmatory test DILATED RETINAL EXAM [facility] Start: 07-23-2022 Advance Directive Discussion Advance Directive Discussion [facility] Start: 07-23-2022 Depression Assessment Depression Assessment [facility] Start: 07-07-2022 End: 07-07-2022 Patient encounter procedure 07/07/2022 Office Visit Endocrinology Lyric Cruz, INSURANCE CLAIM AUDITOR - OPTICAL ADVISOR [address] [place] [address] [facility] [place] Start: 06-22-2022 Lipid panel Lipid Panel [facility] Start: 06-13-2022 Lipid panel [facility] Start: 06-03-2022 Hemoglobin A1c measurement A1C test (Diabetic or Prediabetic) [facility] Start: 05-05-2022 End: 05-05-2022 Patient encounter procedure [facility] [place] MANIPULATOR OPERATOR Oncology Start: 04-12-2022 Diabetic retinal exam Diabetic retinal exam [facility] Start: 04-06-2022 Creatinine measurement [facility] Start: 04-06-2022 Diabetic microalbuminuria test Diabetic microalbuminuria test [facility] Start: 04-06-2022 Hemoglobin A1c measurement A1C test (Diabetic or Prediabetic) [facility] Start: 04-06-2022 Hepatitis B screening URINE ALBUMIN:CREATININE RATIO [facility] Start: 04-06-2022 Lipid panel Lipid screen [facility] [...] procedure 03/03/2022 Office Visit Endocrinology Claudette Baker INSURANCE CLAIM AUDITOR - OPTICAL ADVISOR [address] [place] [address] [facility] [place] Start: 02-20-2022 Influenza vaccination Flu vaccine (#1) [facility] Start: 01-08-2022 COLOGUARD (FIT-DNA) COLOGUARD (FIT-DNA) [facility] Start: 01-08-2022 COLORECTAL CANCER SCREENING COLORECTAL CANCER SCREENING [facility] Start: 01-08-2022 Screening for malignant neoplasm of colon [facility] Start: 11-11-2021 End: 11-11-2021 Patient encounter procedure 11/11/2021 Office Visit Endocrinology Lester Hanks DO [address] [place] [address] [phone] [facility] [place] Start: 11-04-2021 End: 11-04-2021 Patient encounter procedure 11/04/2021 Office Visit Gynecologic Oncology Anjana Meadosw APRN - OPTICAL ADVISOR [address] 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 Start: 10-14-2021 COVID-19 Vaccine (4 - Booster for Pfizer series) COVID-19 Vaccine (4 - Booster for Pfizer series) [facility] Start: 10-01-2021 Thyroid stimulating hormone measurement TSH testing [facility] Work Phone: Start: 10-01-2021 TSH Qn TSH testing [facility] Work Phone: Start: 09-23-2021 Creatinine measurement Creatinine monitoring [facility] Work Phone: Start: 09-23-2021 Potassium monitoring Potassium monitoring [facility] Work Phone: Start: 09-16-2021 COVID-19 VACCINE (4 - Booster for Pfizer series) COVID-19 VACCINE (4 - Booster for Pfizer series) [facility] Start: 08-16-2021 COVID-19 Vaccine (4 - Booster for Pfizer series) COVID-19 Vaccine (4 - Booster for Pfizer series) [facility] Start: 08-12-2021 End: 08-12-2021 Patient encounter procedure 08/12/2021 Office Visit Endocrinology Lyric Cruz, INSURANCE CLAIM AUDITOR - OPTICAL ADVISOR [address] [place] [address] [phone] [facility] [place] Start: 08-08-2021 COVID-19 Vaccine (4 - Booster for Pfizer series) COVID-19 Vaccine (4 - Booster for Pfizer series) [facility] Start: 07-23-2021 ADVANCE DIRECTIVE DISCUSSION ADVANCE DIRECTIVE DISCUSSION [facility] Start: 07-06-2021 Hemoglobin A1c/Hemoglobin.total in Blood HBA1C [facility] Start: 04-21-2021 End: 04-21-2021 Office Visit [facility] [place] MANIPULATOR OPERATOR Oncology Start: 04-06-2021 End: 04-06-2021 Patient encounter procedure 04/06/2021 Office Visit Endocrinology Lyric Cruz, INSURANCE CLAIM AUDITOR - OPTICAL ADVISOR [address] [place] [address] [phone] [facility] [place] Start: 03-23-2021 Influenza vaccination Flu vaccine (#1) [facility] Start: 03-04-2021 Creatinine measurement Creatinine monitoring [facility] [place] Start: 03-04-2021 Lipid panel Lipid screen [facility], [place] Start: 03-04-2021 Potassium monitoring Potassium monitoring [facility] [place] Start: 12-09-2020 COVID-19 Vaccine (3 - Pfizer risk 3-dose series) COVID-19 Vaccine (3 - Pfizer risk 3-dose series) [facility] Work Phone: Start: 12-09-2020 COVID-19 Vaccine (3 - Pfizer risk 4-dose series) COVID-19 Vaccine (3 - Pfizer risk 4-dose series) [facility] Start: 10-27-2020 End: 10-27-2020 Appointment 10/27/2020 Appointment Radiology Ino He MD [address] [facility] [address] [place], [place] [phone] [facility] 1 [facility] Start: 10-18-2020 End: 10-18-2020 Office Visit 10/18/2020 Office Visit Gynecologic Oncology Cuauhtemoc Stubbs MD [address] [place] [address] [phone] [facility] [place] MANIPULATOR OPERATOR Oncology Start: 09-30-2020 End: 09-30-2020 Appointment 09/30/2020 Appointment General Surgery Cuauhtemoc Stubbs MD [address], [address] [place] [address] [phone] [facility] General Surgery Start: 09-23-2020 End: 09-23-2020 Appointment 09/23/2020 Appointment Pre-Admission Testing Cuauhtemoc Stubbs MD [address] [place] [address] [phone] [facility] Pre-Admit Testing Start: 09-17-2020 Annual Wellness Visit (AWV) Annual Wellness Visit (AWV) [facility] Start: 09-17-2020 End: 09-17-2020 Office Visit 09/17/2020 Office Visit Gynecologic Oncology Cuauhtemoc Stubbs MD [address], [address] [place] [address] [phone] Endometrial cancer (HCC) (Primary Dx) [facility] MANIPULATOR OPERATOR Oncology Comment on above: Endometrial cancer (HCC) (Primary Dx) Start: 09-03-2020 End: 09-03-2020 Office Visit 09/03/2020 Office Visit Weight Management Clare Bui MD [address] [place] [address] [phone] [facility] Start: 07-31-2020 Creatinine measurement Creatinine monitoring [place] Start: 07-31-2020 Creatinine monitoring Creatinine monitoring [facility] Work Phone: Start: 07-31-2020 Lipid panel Lipid screen [place], [place] Start: 07-31-2020 Lipid screen Lipid screen [facility] Work Phone: Start: 07-31-2020 Potassium monitoring Potassium monitoring [facility] Work Phone: Start: 07-30-2020 End: 07-30-2020 Office Visit [facility] Start: 06-24-2020 HbA1c (Bld) [Mass fraction] A1C test (Diabetic or Prediabetic) [place], [place] Start: 06-24-2020 Hemoglobin A1c measurement A1C test (Diabetic or Prediabetic) [facility] Work Phone: Start: 06-24-2020 Lipid screen Lipid screen [facility] Work Phone: Start: 05-06-2020 End: 05-06-2020 Office Visit 05/06/2020 Office Visit Bariatrics Clare Bui MD [address] [place] [address] [phone] [facility] Start: 04-01-2020 End: 04-01-2020 Office Visit 04/01/2020 Office Visit Bariatrics Clare Bui MD [address] [place] [address] [phone] [facility] Start: 03-27-2020 Creatinine monitoring Creatinine monitoring [place], [place] Start: 03-27-2020 Lipid screen Lipid screen [facility] [place] PAR[place] Start: 03-27-2020 Potassium monitoring Potassium monitoring [facility] [place] PAR[place] Start: 03-23-2020 Influenza vaccination [facility] [place] PAR[place] Start: 03-08-2020 End: 03-08-2020 Office Visit 03/08/2020 Office Visit Bariatrics Clare Bui MD [address] [facility] [place] [address] [phone] [facility] Start: 01-03-2020 BONE DENSITY BONE DENSITY [facility] Start: 01-03-2020 Bone Density Screening Bone Density Screening [facility] Start: 01-03-2020 Pneumococcal 65+ years Vaccine (1 of 1 - PPSV23) Pneumococcal 65+ years Vaccine (1 of 1 - PPSV23) [facility] Start: 01-03-2020 Pneumococcal 65+ years Vaccine (2 of 2 - PPSV23) Pneumococcal 65+ years Vaccine (2 of 2 - PPSV23) [facility] Work Phone: Start: 01-03-2020 PNEUMOVAX AGE 65 AND OVER WITH 5YR LOOKBACK (#1) PNEUMOVAX AGE 65 AND OVER WITH 5YR LOOKBACK (#1) [facility] Start: 01-03-2020 Screening for osteoporosis Bone Density Screening [facility] Start: 09-23-2019 A1C test (Diabetic or Prediabetic) A1C test (Diabetic or Prediabetic) [facility] Work Phone: Start: 09-23-2019 HbA1c (Bld) [Mass fraction] [facility]Di[facility] Start: 08-27-2019 Creatinine monitoring Creatinine monitoring [facility] [place] Start: 08-27-2019 [facility] Start: 08-27-2019 [facility] Start: 04-03-2019 End: 04-03-2019 Office Visit 04/03/2019 Office Visit Bariatrics Jorge Alberto Palumbo MD [address] [place] [address] [phone] [facility] Start: 03-23-2019 Influenza vaccination Flu vaccine (#1) [place], [place] Start: 03-12-2019 A1C test (Diabetic or Prediabetic) A1C test (Diabetic or Prediabetic) [facility] [place] Start: 03-12-2019 TSH Qn TSH testing [facility] [place] Start: 03-12-2019 TSH testing TSH testing [place], [place] Start: 02-22-2019 [object Object] Diabetic foot exam [place] Start: 02-22-2019 Diabetic foot examination Diabetic foot exam [facility] Start: 06-12-2018 A1C test (Diabetic or Prediabetic) A1C test (Diabetic or Prediabetic) [place] Start: 05-21-2018 Diabetic retinal exam Diabetic retinal exam [facility] Start: 06-28-2015 Shingles vaccine (1 of 2) Shingles vaccine (1 of 2) [facility] Start: 06-28-2015 Shingles Vaccine (2 of 3) Shingles Vaccine (2 of 3) [facility] Start: 06-28-2015 SHINGRIX VACCINE (2 of 3) SHINGRIX VACCINE (2 of 3) [facility] Start: 06-28-2015 Zoster Vaccines (2 of 3) Zoster Vaccines (2 of 3) [facility] Start: 06-28-2015 [facility] Start: 2015 Hepatitis B Vaccine (1 of 3 - Risk 3-dose series) Hepatitis B Vaccine (1 of 3 - Risk 3-dose series) [facility] Start: 2015 Hepatitis B Vaccines (1 of 3 - Risk 3-dose series) Hepatitis B Vaccines (1 of 3 - Risk 3-dose series) [facility] Start: 2015 RSV Immunization aged 60 or older (1 - 1-dose 60+ series) RSV Immunization aged 60 or older (1 - 1-dose 60+ series) [facility] Start: 2015 RSV Immunization for Adults (1 - Risk 60-74 years 1-dose series) RSV Immunization for Adults (1 - Risk 60-74 years 1-dose series) [facility] Start: 2015 [facility] Start: 03-28-2010 Screening for malignant neoplasm of colon [facility] Start: 2010 Screening for osteoporosis DEXA (modify frequency per FRAX score) [facility] Start: 03-28-2008 Screening for malignant neoplasm of colon FIT/FOBT: Average risk [facility] Start: 2005 Breast cancer screen Breast cancer screen [place], [place] Start: 2005 Colon cancer screen colonoscopy Colon cancer screen colonoscopy [place], [place] Start: 2005 Screening for malignant neoplasm of breast Breast cancer screen [facility] Start: 2005 Screening for malignant neoplasm of colon Colon cancer screen colonoscopy [place], [place] Start: 2005 Shingles Vaccine (1 of 2) Shingles Vaccine (1 of 2) [place] Start: 01-03-2000 Colonoscopy COLONOSCOPY [facility] Start: 01-03-[address] COLONOGRAPHY [facility] Start: 01-03-2000 FECAL OCCULT BLOOD FECAL OCCULT BLOOD [facility] Start: 01-03-2000 Screening for malignant neoplasm of colon [facility] Start: 01-03-2000 SIGMOIDOSCOPY SIGMOIDOSCOPY [facility] Start: 1995 Mammography [facility] Start: 1995 Screening for malignant neoplasm of breast [facility] Start: 01-03-1976 Cervical cancer screen Cervical cancer screen [place], [place] Start: 01-03-1976 Screening for malignant neoplasm of cervix Cervical cancer screen [place], [place] Start: 1974 DTaP/Tdap/Td vaccine (1 - Tdap) DTaP/Tdap/Td vaccine (1 - Tdap) [facility] Start: 1974 DTaP/Tdap/Td Vaccines (1 - Tdap) DTaP/Tdap/Td Vaccines (1 - Tdap) [facility] Start: 1974 Hepatitis A Vaccines (1 of 2 - Risk 2-dose series) Hepatitis A Vaccines (1 of 2 - Risk 2-dose series) [facility] Start: 1974 Hepatitis B vaccine (1 of 3 - Risk 3-dose series) Hepatitis B vaccine (1 of 3 - Risk 3-dose series) [facility] Work Phone: Start: 1974 Urine microalbumin profile [facility] Start: 1973 ANNUAL PCP TEAM CHRONIC DISEASE VISIT ANNUAL PCP TEAM CHRONIC DISEASE VISIT [facility] Start: 1973 Anxiety Screening Anxiety Screening [facility] Start: 1973 Depression Screening Depression Screening [facility] Start: 1973 Diabetic microalbuminuria test Diabetic microalbuminuria test [place], [place] Start: 1973 Hepatitis B surface antibody level LDL CHOLESTEROL [facility] Start: 1973 HEPATITIS C SCREENING HEPATITIS C SCREENING [facility] Start: 1973 Hepatitis C screening [facility] Start: 1971 COVID-19 Vaccine (1 of 2) COVID-19 Vaccine (1 of 2) [facility] Work Phone: Start: 1971 COVID-19 Vaccine (1) COVID-19 Vaccine (1) [facility] Work Phone: Start: 1970 HIV screen HIV screen [place], [place] Start: 1970 HIV screening HIV screen [place] Start: 1967 Adult depression screening assessment DEPRESSION SCREENING [facility] Start: 1967 COVID-19 Vaccine (1) COVID-19 Vaccine (1) [facility] Work Phone: Start: 1967 Depression Monitoring Depression Monitoring [facility] Start: 1967 Depression Screen Depression Screen [facility] Start: 1967 Depresssion Monitoring Depresssion Monitoring [facility] Start: 1967 [facility] Start: 1966 DTaP/Tdap/Td vaccine (1 - Tdap) DTaP/Tdap/Td vaccine (1 - Tdap) [place], [place] Start: 1965 3 comp foot exam completed DIABETIC FOOT EXAM [facility] Start: 1965 Diabetic foot examination [facility] Start: 1965 Preventive dental service [facility] Start: 1961 Pneumococcal 0-64 years Vaccine (1 of 1 - PPSV23) Pneumococcal 0-64 years Vaccine (1 of 1 - PPSV23) [place], [place] Start: 1961 Pneumococcal Vaccine: 65+ (1 - PCV) Pneumococcal Vaccine: 65+ (1 - PCV) [facility] Start: 1961 PNEUMOCOCCAL: 65+ (1 - PCV) PNEUMOCOCCAL: 65+ (1 - PCV) [facility] Start: 01-03-1956 Hepatitis A Vaccines (1 of 2 - Risk 2-dose series) Hepatitis A Vaccines (1 of 2 - Risk 2-dose series) [facility] Start: 1955 Annual Wellness Visit (AWV) Annual Wellness Visit (AWV) [facility] Start: 1955 Hepatitis C screen Hepatitis C screen [place], [place] Start: 1955 Hepatitis C screening Hepatitis C screen [facility] Start: 1955 Medicare Annual Wellness (AWV) Medicare Annual Wellness (AWV) [facility] Start: 1955 Screening for malignant neoplasm of colon [facility] Start: 1955 Screening for osteoporosis [facility] Start: 1955 Statin Therapy Statin Therapy [place], [place] End: 11-02-2024 Bacteria identified in Urine by Culture [employer] Work Phone: Comment on above: Once (Lab) for 1 Occurrences starting until 11/02/2024 Once for 1 Occurrenc es starting 11/02/2024 until 11/02/2024 End: 11-11-2024 CT Abdomen and Pelvis WO and W contrast IV [employer] Work Phone: Comment on above: Once for 1 Occurrences starting 11/12/19 until 11/11/2024 End: 10-27-2020 CT CHEST/ABDOMEN/PELVIS (PO,IV) CT CHEST/ABDOMEN/PELVIS (PO,IV) Imaging Routine Malignant neoplasm of endometrium (HCC) 1 Occurrences starting 10/27/2020 until 10/27/2020 [employer] Work Phone: Comment on above: 1 Occurrences starting 10/27/2020 until 10/27/2020 CT CHEST/ABDOMEN/PEL VIS (PO,IV) CT CHEST/ABDOMEN/PELVIS (PO,IV) Imaging Routine Malignant neoplasm of endometrium (HCC) 10/27/2020 2:36 PM EDT [employer] Work Phone: End: 01-10-2021 CT [facility] Therapy [facility] Imaging Routine Once for 1 Occurrences starting 01/10/2021 until 01/10/2021 [employer] Work Phone: Comment on above: Once for 1 Occurrences starting 01/11/20 until 01/10/2021 CT [facility] Radi[facility] Therapy [facility] Imaging Routine 01/10/2021 10:53 AM EDT [employer] Work Phone: End: 11-11-2024 CT Head WO and W contrast IV [employer] Work Phone: Comment on above: Once for 1 Occurrences starting 11/12/19 until 11/11/2024 Dressing Order: (Triamcinolone); Weekly; Unna boot, Multilayer compression wrap 4 layers, Single layer tubigrip Dressing Order: (Triamcinolone); Weekly; Unna boot, Multilayer compression wrap 4 layers, Single layer tubigrip Wound Ostomy Routine Ordered: 08/02/2022 [employer] Work Phone: Comment on above: Ordered: 08/02/2022 Dressing Order: Keep dressing dry & clean; Weekly; ABDs; Kerlex, Silk tape; Unna boot, Multilayer compression wrap 4 layers; Trimacinolone Dressing Order: Keep dressing dry & clean; Weekly; ABDs; Kerlex, Silk tape; Unna boot, Multilayer compression wrap 4 layers; Trimacinolone Wound Ostomy Routine Ordered: 03/26/2024 [employer] Work Phone: Comment on above: Ordered: 03/26/2024 Dressing Order: Keep dressing dry & clean; Weekly; ABDs; Kerlex, Silk tape; Unna boot, Multilayer compression wrap 4 layers; Trimacinolone Dressing Order: Keep dressing dry & clean; Weekly; ABDs; Kerlex, Silk tape; Unna boot, Multilayer compression wrap 4 layers; Trimacinolone Wound Ostomy Routine Ordered: 04/23/2024 [employer] Work Phone: Comment on above: Ordered: 04/23/2024 Dressing Order: Unna boot, Multilayer compression wrap 4 layers; Trimacinolone Dressing Order: Unna boot, Multilayer compression wrap 4 layers; Trimacinolone Wound Ostomy Routine Ordered: 08/01/2023 [employer] Work Phone: Comment on above: Ordered: 08/01/2023 Dressing Order: Week ly; ABDs (as needed); Unna boot, Multilayer compression wrap 4 layers Dressing Order: Weekly; ABDs (as needed); Unna boot, Multilayer compression wrap 4 layers Wound Ostomy Routine Ordered: 08/30/2022 [employer] Work Phone: Comment on above: Ordered: 08/30/2022 Dressing Order: Week ly; ABDs; Kerlex, Silk tape; Unna boot, Multilayer compression wrap 4 layers Dressing Order: Weekly; ABDs; Kerlex, Silk tape; Unna boot, Multilayer compression wrap 4 layers Wound Ostomy Routine Ordered: 09/27/2022 [employer] Work Phone: Comment on above: Ordered: 09/27/2022 Dressing Order: Week ly; ABDs; Kerlex, Silk tape; Unna boot, Multilayer compression wrap 4 layers; Trimacinolone Dressing Order: Weekly; ABDs; Kerlex, Silk tape; Unna boot, Multilayer compression wrap 4 layers; Trimacinolone Wound Ostomy Routine Ordered: 01/30/2024 [employer] Work Phone: Comment on above: Ordered: 01/30/2024 Dressing Order: Week ly; Kerlex, Silk tape; Unna boot, Multilayer compression wrap 4 layers Dressing Order: Weekly; Kerlex, Silk tape; Unna boot, Multilayer compression wrap 4 layers Wound Ostomy Routine Ordered: 11/22/2022 [facility] Work Phone: Comment on above: Ordered: 11/22/2022 Dressing Order: Week ly; Multilayer compression wrap 4 layers, Unna boot Dressing Order: Weekly; Multilayer compression wrap 4 layers, Unna boot Wound Ostomy Routine Ordered: 10/25/2022 [facility] Work Phone: Comment on above: Ordered: 10/25/2022 Dressing Order: Week ly; Unna boot, Multilayer compression wrap 4 layers, Single layer tubigrip Dressing Order: Weekly; Unna boot, Multilayer compression wrap 4 layers, Single layer tubigrip Wound Ostomy Routine Ordered: 02/14/2023 [facility] Work Phone: Comment on above: Ordered: 02/14/2023 Dressing Order: Xeroform; ABDs; Kerlex, Silk tape; Multilayer compression wrap 4 layers, Unna boot; Antibiotic ointment Dressing Order: Xeroform; ABDs; Kerlex, Silk tape; Multilayer compression wrap 4 layers, Unna boot; Antibiotic ointment Wound Ostomy Routine Ordered: 04/09/2023 [employer] Work Phone: Comment on above: Ordered: 04/09/2023 Dressing Order: Xeroform; ABDs; Kerlex, Silk tape; Unna boot, Multilayer compression wrap 4 layers, Single layer tubigrip; Trimacinolone Dressing Order: Xeroform; ABDs; Kerlex, Silk tape; Unna boot, Multilayer compression wrap 4 layers, Single layer tubigrip; Trimacinolone Wound Ostomy Routine Ordered: 12/05/2023 [employer] Work Phone: Comment on above: Ordered: 12/05/2023 Dressing Order: Xeroform; ABDs; Kerlex, Silk tape; Unna boot, Multilayer compression wrap 4 layers; Trimacinolone Dressing Order: Xeroform; ABDs; Kerlex, Silk tape; Unna boot, Multilayer compression wrap 4 layers; Trimacinolone Wound Ostomy Routine Ordered: 09/26/2023 [employer] Work Phone: Comment on above: Ordered: 09/26/2023 Dressing Order: Xeroform; ABDs; Kerlex, Silk tape; Unna boot, Multilayer compression wrap 4 layers; Trimacinolone Dressing Order: Xeroform; ABDs; Kerlex, Silk tape; Unna boot, Multilayer compression wrap 4 layers; Trimacinolone Wound Ostomy Routine Ordered: 11/07/2023 [employer] Work Phone: Comment on above: Ordered: 11/07/2023 Dressing Order: Xeroform; Weekly; 4x4 gauze; Kerlex, Silk tape; Multilayer compression wrap 4 layers, Unna boot; Trimacinolone Dressing Order: Xeroform; Weekly; 4x4 gauze; Kerlex, Silk tape; Multilayer compression wrap 4 layers, Unna boot; Trimacinolone Wound Ostomy Routine Ordered: 01/17/2023 [employer] Work Phone: Comment on above: Ordered: 01/17/2023 Dressing Order: Xeroform; Weekly; ABDs; Kerlex, Silk tape; Unna boot, Multilayer compression wrap 4 layers; Trimacinolone Dressing Order: Xeroform; Weekly; ABDs; Kerlex, Silk tape; Unna boot, Multilayer compression wrap 4 layers; Trimacinolone Wound Ostomy Routine Ordered: 02/27/2024 [employer] Work Phone: Comment on above: Ordered: 02/27/2024 Dressing Order: Xeroform; Weekly; Kerlex, Silk tape; Unna boot, Multilayer compression wrap 4 layers; Trimacinolone Dressing Order: Xeroform; Weekly; Kerlex, Silk tape; Unna boot, Multilayer compression wrap 4 layers; Trimacinolone Wound Ostomy Routine Ordered: 05/23/2023 [employer] Work Phone: Comment on above: Ordered: 05/23/2023 EKG 12 Lead EKG 12 Lead ECG Routine 09/23/2020 5:36 PM EST [employer] Work Phone: Home BIPAP or CPAP Home BIPAP or CPAP Respiratory Care Routine Daily until discontinued starting 09/30/2020 [employer] Phone: Comment on above: Daily until discontinued starting 2020 End: 05-11-2025 Lactic acid with reflex CORD:USE [facility] [employer] Work Phone: Oxygen therapy [[facility] Data Set] Initiate Oxygen Therapy Protocol Respiratory Care Routine Daily until discontinued starting 09/30/2020 [employer] Phone: Comment on above: Daily until discontinued starting 2020 POCT Glucose [employer] Phone: Comment on above: As Needed until discontinued starting 4X Daily (AC & HS) u ntil discontinued starting 10/01/2020 Spirometry panel Incentive leon metry Respiratory Care Routine Every 2hr while awake until discontinued starting 09/30/2020 [employer] Phone: Comment on above: Every 2hr while awake until discontinued starting 09/30/2020 SureSwab(R) Adv Bacterial Vaginosis (BV), [facility] ([facility]) SureSwab(R) Adv Bacterial Vaginosis (BV), [facility] ([facility]) Microbiology Routine Vaginal discharge Ordered: 03/04/2024 [facility] Comment on above: Ordered: 03/04/2024 SURESWAB(R) ADV CAND ROSALINE VAGINITIS (CV), [facility] ([facility]) Sureswab(R) Adv Migdalia Vaginitis (CV), [facility] ([facility]) Lab Routine Vaginal discharge Ordered: 03/04/2024 [facility] [employer] Work Phone: Comment on above: Ordered: 03/04/2024 Tissue exam [facility] Work Phone: Comment on above: Release Upon Ordering for 1 Occurrences starting 12/22/2024 End: 11-02-2024 Urine Hold Cup Urine Hold Cup Lab Timed Once for 1 Occurrences starting 11/02/2024 until 11/02/2024 [facility] Comment on above: Once for 1 Occurrences starting 11/03/19 until 11/02/2024 [facility] Immunizations Immunization Date Immunization Notes Care Provider [facility] 04-29-2024 influenza virus vacc ine, unspecified formulation Christy Rizzo MD Work Phone: [facility] 04-17-2022 Covid-19, Pfizer Bivalent Booster, (Age 12y+), Im, 30 Mcg/0e Jerome Perdomo MD Work Phone: [facility] 04-17-2022 Influenza, High-dose Seasonal, Quadrivalent, Preservative Free Jerome Perdomo MD Work Phone: [facility] 04-17-2022 influenza virus vacc ine, unspecified formulation Jerome Perdomo MD Work Phone: [facility] 11-15-2021 Covid-19, Pfizer Gra y Top, Do Not Dilute, (Age 12 Y+), Im, L Jerome Perdomo MD Work Phone: [facility] 02-22-2022 pneumococcal polysaccharide vaccine, 23 valent Jerome Perdomo MD Work Phone: [facility] 05-16-2021 Pfizer SARS-CoV-2 Vaccination Jerome Perdomo MD Work Phone: [facility] 04-22-2021 influenza, injectabl e, quadrivalent, contains preservative Jerome Perdomo MD Work Phone: [facility] 11-11-2020 COVID-19 vaccine, ag e 12+ yr (PFIZER-BIONTECH - PURPLE TOP) Moses Acevedo MD Work Phone: [facility] Work Phone: 10-19-2020 COVID-19 vaccine, ag e 12+ yr (PFIZER-BIONTECH - PURPLE TOP) Moses Acevedo MD Work Phone: [facility] Work Phone: 04-27-2020 influenza, seasonal, injectable Jreome Perdomo MD Work Phone: [facility] 04-22-2020 influenza, injectabl e, quadrivalent, contains preservative Moses Acevedo MD Work Phone: [facility] Work Phone: 01-05-2020 pneumococcal conjuga te vaccine, 13 valent Jerome Perdomo MD Work Phone: [facility] 04-16-2019 influenza, seasonal, injectable Jerome Perdomo MD Work Phone: [facility] 04-05-2018 influenza, seasonal, injectable Jerome Perdomo MD Work Phone: [facility] 04-12-2017 influenza, seasonal, injectable Jerome Perdomo MD Work Phone: [facility] 04-28-2016 influenza, seasonal, injectable Jerome Perdomo MD Work Phone: [facility] 05-03-2015 zoster vaccine, live Neri Acevedo MD Work Phone: [facility] Work Phone: 03-30-2015 influenza, seasonal, injectable Jerome Perdomo MD Work Phone: [facility] 05-01-2014 influenza, seasonal, injectable Jerome Perdomo MD Work Phone: [facility] 05-03-2013 influenza, seasonal, injectable Jerome Perdomo MD Work Phone: [facility] 04-02-2012 influenza, seasonal, injectable Jerome Perdomo MD Work Phone: [facility] 05-02-2011 influenza, seasonal, injectable Jerome Perdomo MD Work Phone: [facility] 06-07-2010 influenza, seasonal, injectable, preservative free Jerome Perdomo MD Work Phone: [facility] 06-07-2010 pneumococcal polysaccharide vaccine, 23 valent Jerome Perdomo MD Work Phone: [facility] 06-07-2010 Nettiesole bajwa DO Work Phone: [facility] 06-10-2009 novel influenza-H1N1 -09, preservative-free, injectable Moses Acevedo MD Work Phone: [facility] Work Phone: 05-26-2009 influenza, seasonal, injectable, preservative free Jerome Perdomo MD Work Phone: [facility] 05-26-2009 Nettie bajwa DO Work Phone: [facility] 05-06-2007 influenza, seasonal, injectable Jerome Perdomo MD Work Phone: [facility] 07-02-2001 influenza, seasonal, injectable Moses Acevedo MD Work Phone: [facility] Work Phone: 05-12-1999 influenza, seasonal, injectable Moses Acevedo MD Work Phone: [facility] Work Phone: 05-06-1998 influenza, seasonal, injectable Moses Acevedo MD Work Phone: [facility] Work Phone: Payers Date Payer Category Payer Medicare supplementa l policy (as second payer) [id number] 2021 Unknown 2020 Private Health Insurance [facility] [employer] SUPPLEMENT [id number] 2020-Present [phone] [address] [place] [address] Indemnity [id number] 2020 Private Health Insurance [facility] [employer] SUPPLEMENT [id number] 2020-Present [phone] [address] [place] [address] Indemnity [id number] 2020 Private Health Insurance [facility] [id number] 2019 Medicare MEDICARE MEDICAR E A AND B [id number] 2019-Present [phone] [place] [address] Medicare [id number] 2019 Medicare [id number] 2019 Private Health Insurance [employer] Alberto MURPHY [id number] 2019-Present [phone] [address] [place] [address] [id number] 2019 Medicare [id number] 2015 Unknown [employer] M [employer] [address] xxxxxxx 2015-Present [phone] [address] [place] [address] xxxxxxx [id number] 1955 Unknown [id number] 1955 Unknown [id number] 1955 Unknown [id number] 1955 Unknown [id number] 1955 Unknown [id number] 1955 Unknown [id number] [id number]. 2 1955 Unknown [id number] 2.16840.1.481955.3.579. 247 1955 Unknown [id number] 2.840.1.434311.3.579. 247 1955 Unknown [id number] 2.16840.1.015929.3.579. 247 1955 Unknown [id number] 2.16840.1.487417.3.579. 247 1955 Unknown [id number] 2.16840.1.989040.3.579. 247 1955 Unknown [id number] 2.16840.1.593026.3.579. 247 1955 Unknown [id number] 2.16.840.1.819741.3.579. 2.479 1955 Unknown [id number] 2.16.840.1.964529.3.579. 2.479 1955 Unknown [id number] 2.16.840.1.149195.3.579. 2.479 1955 Unknown [id number] 2.16.840.1.626369.3.579. 2.479 1955 Unknown [id number] 2.16.840.1.769179.3.579. 2.479 1955 Unknown [id number] 2.16.840.1.150531.3.579. 2.479 Social History Date Type Detail Facility Start: 09-03-2018 End: 04-06-2022 Tobacco smoking status OKIS Never smoker [facility] Start: 09-03-2018 End: 05-17-2025 Alcohol intake No [facility] Start: 1955 Sex Assigned At Not on file M [place], [place] Start: 04-03-2019 End: 12-22-2024 Alcohol intake Current non-drinker of alcohol (finding) [place], [place] Start: 04-03-2019 End: 04-06-2022 Tobacco use and exposure Never used [place], [place] Start: 08-31-2020 End: 04-11-2023 Exposure to SARS-CoV-2 (event) Not sure [employer] Work Phone: Start: 12-20-2022 End: 05-17-2025 History of Social function [facility]: Power National Score (1-10 0), lower number is lower risk 20 [facility] Start: 02-20-2022 Sex Female (finding) [facility]: [facility] Within the last year , have you been afraid of your partner or ex-partner? No [facility]: Power How often to you hav e a drink containing alcohol? Never [facility]: Power Start: 1955 Sex assigned at Female [facility] Start: 11-01-2024 Gender identity Identifies as female gender (finding) [facility] (I/We) worried wheth er (my/our) food would run out before (I/we) got money to buy more. Never true CORD:USE [facility] In the past 12 month s, was there a time when you were not able to pay the mortgage or rent on time? Yes [facility]: Power Medical Equipment Procedure Code Equipment Code Equipment Origin al Text Equipment Identifier Dates 1 each by In Vit ro route 2 times daily As needed. [id number] Start: 12-01-2015 End: 03-27-2017 1 each by Does n ot apply route daily [id number] Start: 12-01-2015 End: 03-27-2017 1 each by In Vit ro route 2 times daily As needed. [id number] Start: 02-22-2018 End: 10-01-2020 1 each by Does n ot apply route daily [id number] Start: 03-27-2017 TEST 3 TIMES DAILY [id number] Start: 10-01-2020 USE TO TEST BLOO D GLUCOSE 3 TIMES DAILY [id number] Start: 10-01-2020 Test 2-3 times a day & as needed for symptoms of irregular blood glucose. Dispense sufficient amount for indicated testing frequency plus additional to accommodate PRN testing needs. [id number] Start: 10-01-2020 End: 10-01-2020 1 each by Does n ot apply route 3 times daily [id number] Start: 10-01-2020 End: 10-01-2020 Lens Acrysof Ultrasert +15.5 Diopter Acrylic Iol 1 Piece Foldable Uv Blue - [id number] Start: 11-22-2021 Lens Acrysof Ultrasert +16.5 Diopter Acrylic Iol 1 Piece Foldable Uv Blue - [id number] Start: 12-06-2021 TEST 4 TIMES NEO LY and prn [id number] Start: 04-29-2021 USE TO TEST BLOO D GLUCOSE 3 TIMES DAILY [id number] Start: 04-08-2021 BD Insulin Syrin ge U/F 30G X 1/2" 0.5 ML misc [id number] Start: 03-08-2022 End: 01-19-2023 USE DIRECTED FOUR TIMES DAILY [id number] Start: 06-22-2022 End: 11-06-2023 Use as instructed [id number] Start: 07-07-2022 End: 07-07-2023 2 times daily wi th insulin [id number] Start: 01-19-2023 Use as instructe d 2 times daily [id number] Start: 05-09-2023 End: 11-06-2023 1 each by Other route 4 times daily. As directed [id number] Start: 11-06-2023 Use as instructe d 2 times daily [id number] Start: 11-06-2023 Functional Status Date Assessment Result Facility [facility] Clinical Notes 05-21-2017 to 05-19-2025 Cuauhtemoc Machado, - 05/19/2025 3:06 PM EDTDischarge InstructionsDischarge Instr - [facility] Coordination - Acacia Ocampo RN - 05/19/2025 1:54 PM EDTSoleg Aceves, DARLIN - 05/19/2025 1:45 PM EDT Note Date & Type Note Facility 05-19-2025 Note [facility] 05-19-2025 Hospital course Narrative Hospitalist Discharge Summary Dameon Potter : 1955 Admit date: 05/11/2025 Discharge date: 05/19/2025 Admitting Physician: Jennifer León DO Primary Care Physician: Chrisyt Rizzo MD Visit Status: Inpatient Code Status: [...] - Should attempt voiding trial while at [facility] re[facility] # Hypokalemia: Resolved # [...] Complexity: follow up within 7-14 calendar days (56178) [x] Severe Complexity: follow up within 7 calendar days (04930) Follow up Testing, Pending results or Referrals [...] Cuauhtemoc Machado DO Division of Hospitalist Medicine [facility] 05/19/2025, 3:06 PM [1] Past Medical History: [...] Zinc deficiency 06/21/2018 documented in this encounter [facility] 05-19-2025 Hospital Discharge instructions [...] Unit/Room#: N4-458/N4-458 A Discharging Unit Phone Number: [phone] Emergency Contact: Extended Emergency Contact Information Primary [...] expose wisdom teeth THYROGLOSSAL DUCT EXCISION [address] [facility] [address] Vin Keating THYROIDECTOMY thyroid cyst [...] seasonal, injectable, preservative free 05/26/2009, 06/07/2010 Novel [id number], preservative-free 06/10/2009 Pfizer SARS-CoV-2 Vaccination 10/19/2020, 11/11/2020, [...] assistance Toileting Minimal assistance Feeding Minimal assistance Risk Tech Minimal assistance Med Delivery no Wound Care [...] to Facility/ Agency [facility] [address] [place] [address] Disaster Recovery Specialist/Packing Supervisor signature: ICIAN SECTION Name: Dameon Potter Prognosis: good Condition at Discharge: stable Rehab Potential (if transferring to Rehab): good Recommended Labs or Other Treatments After Discharge: Please obtain CBC/CMP in 3-5 days The individual is being admitted to a nursing facility directly from an [facility] or a unit of a [facility] that is not operated by or licensed by [facility] under section 5119.14 or 5160-3-15.1 5 [...] H&P PHYSICIAN SIGNATURE: documented in this encounter [facility] 05-19-2025 Miscellaneous Notes Care Management Progress Note Short Medical why still here: Pt accepted to [facility]. Bed availability today. Patient, medical team updated. [facility] aide/scheduler updated. Patient and team updated. Tasked [employer] TECHNICIAN to send updated med rec and MAR. Updated pt's JENNIFER Nieves. Planned Discharge Disposition: Inpatient Rehab Facility [facility] Barriers/Today we still Wait: Physician discharge work flow. Length of Stay (Days): 8 GMLOS: No GMLOS Documented TCC to follow for discharge needs. Patient Choice Patient Name: DAMEON POTTER Date of : 1955 All Providers Sent Referral Name: [facility] Phone: [phone] Address: [address] [id number] Name: [facility] Address: [address] [place] [address] Confirmed pickup time of 6:00pm on 05/19/25 by transport [employer] at phone number [phone]. Location of facility drop off [facility]. [facility], TCC notified on secure chat. Discharge med list transmitted to [facility] per TCC request. Referral placed to [facility] request. Await review and response regarding ability to accept. TCC notified. [facility] unable to accept. Referral placed to [facility]. Referral placed to Rehab- [facility] via [facility] per TCC request. Await review and response regarding ability to accept. TCC notified. Care Management Progress Note Short Medical why still here: placement Planned Discharge Disposition: (SNF vs IPR if appropriate) Met with pt to discuss disch plan. PT rec SNF, pt has Medicare and meets admission criteria for acute rehab per [facility] liaison inspection laboratory assistant. Pt [facility] as it is closer to family. If they are unable to accept she is agreeable to [facility]. Referral created to [facility] [...] going to the store. Message sent to manager voice to provide update and request for snf list in [place]. Pt agreeable to referral in case she would be able to return home after snf stay. Referral made. Met with patient at bedside, patient is agreeable to SNF placement. Explained Medicare stars and [facility]. All questions answered. Patient had poor experience at [facility] in the past, would not like to [...] Discharge plan home. documented in this encounter [facility] 05-19-2025 History of Present [...] working with PT. [facility] Now with D/C orders for IP [...] Current Body Weight: 93.4 kg (206 lb) [place] Body Weight (lbs) (Calculated): 130 lbs [place] Body Weight (Kg) (Calculated): 59 kg % [place] Body Weight (Calculated): 154.6 % BMI (kg/m2) [...] Sharon Aceves MS, RD, LD Contact: or Sykio Chat (dial *[phone] from hospital phone) [1] apixaban, 5 mg, [...] original note were not included. PHYSICAL THERAPY [facility] Treatment Note Name/MRN: Dameon Potter ([id number]) Date of : 1955 Age: 70 y.o. Room/Bed: N4-458/N4-458 A Discharge Recommendation: Fpc Facility Prior Level of Function Prior Level [...] Relation: Huma Alber Gil DO [facility] [1] Past Medical History: Diagnosis Date Anxiety [...] original note were not included. PHYSICAL THERAPY [facility] Treatment Note Name/MRN: Dameon Potter ([id number]) Date of : 1955 Age: 70 y.o. Room/Bed: N4-458/N4-458 A Discharge Recommendation: Fpc Facility Prior Level of Function Prior Level [...] to get her back in bed. Recommend correction facility upon discharge. Subjective Patient in bed [...] original note were not included. OCCUPATIONAL THERAPY [facility] Treatment Note Name/MRN: Dameon Potter ([id number]) Date of : 1955 Age: 70 y.o. Room/Bed: N4-458/N4-458 A Discharge Recommendation: Fpc Facility Prior Level of Function Prior Level [...] Relation: Sibling Alber DO Jeffery Division [facility] [1] Past Medical History: Diagnosis Date Anxiety [...] no growth; will deescalate Abx as appropriate -d'rat Vancomycin 05/12 and Cefepime 05/13 Gluteal and [...] Huma Alber Jeffery, Division of Hospitalist Medicine [facility] [1] Past Medical History: Diagnosis Date Anxiety [...] original note were not included. OCCUPATIONAL THERAPY [facility] Initial Evaluation Name/MRN: Dameon Potter ([id number]) Evaluation Date: 05/15/2025 Date of : 1955 Admission Date: 05/11/2025 5:34 PM Age: 70 y.o. 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 Diabetic retinopathy associated with type 2 diabetes mellitus ([facility]) 07/05/2022 Malignant neoplasm of uterus (HCC) 07/05/2022 Malnutrition of mild degree (Bianchi: 75% to less than 90% of standard weight) ([facility]) 07/05/2022 Moderate recurrent major depression (CMS/HCC) 07/05/2022 Thyroglossal duct cyst 07/05/2022 Type 2 diabetes mellitus with hyperglycemia ([facility]) 07/05/2022 Postmenopausal bleeding 09/03/2020 Dry eye syndrome of bilateral lacrimal glands 11/04/2018 Nuclear sclerotic cataract, bilateral 05/24/2017 Posterior subcapsular age-related cataract of left eye 05/22/2017 Primary open angle glaucoma of both eyes, mild stage 11/13/2016 Cortical cataract of both eyes 05/05/2015 Chronic sinusitis 03/12/2013 Endometrial cancer ([facility]) 09/30/2020 Debility 06/20/2018 Morbid obesity (CMS/HCC) 01/31/2018 [...] Needs Assist Receives Help From: Friend(s) Active Epic Ambulatory Specialists: Prior Level of Function Prior Level of [...] of Care supervision is transferred to a [facility] Therapy Services Occupational Therapist. Goals and/or [...] expose wisdom teeth THYROGLOSSAL DUCT EXCISION [address] [facility] [address]. Vin Keating THYROIDECTOMY thyroid cyst UMBILICAL HERNIA REPAIR 01/29/2018 w/ LRYGB and Lap Aggie - [facility] UPPER GASTROINTESTINAL ENDOSCOPY 03/20/2017 pre op, [facility] WISDOM TOOTH EXTRACTION 2013 [facility] [employer] Images from the original note were not included. PHYSICAL THERAPY [facility] Treatment Note Name/MRN: Dameon Potter ([id number]) Date of : 1955 Age: 70 y.o. Room/Bed: N4-458/N4-458 A Discharge Recommendation: Fpc Facility Prior Level of Function Prior Level [...] the original note were not included. [facility] Wound Care Progress Note Dameon Potter AGE: [...] cyanosis Abdominal fold/Groin: Scattered superficial wounds noted. [place]/red tissue. Moisture/excoriation noted. Erythema present. 05/12/25 Bilateral [...] soap and water. Apply miconazole powder. Leave HEALTH EDUCATION ASSISTANT. Apply BID and PRN Bilateral medial thighs: Fungal Dermatitis -Cleanse with Hibiclens soap and water. Apply miconazole powder. Leave HEALTH EDUCATION ASSISTANT. 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 Apply miconazole powder to wound bed, followed by ET mix. Leave HEALTH EDUCATION ASSISTANT. Apply BID and PRN -waffle chair cushion -Q2hr/PRN turns -glide sheets for T&R -continence checks Q1-2 Hrs/PRN -Envella bed with pillow offloading - Currently resting on Nutritional support Wound Care to follow Recommend to follow up at [facility] after hospital [...] expose wisdom teeth THYROGLOSSAL DUCT EXCISION [address] [facility]- Dr. Vin Keating THYROIDECTOMY thyroid cyst [...] insulin pen needle 32G x 4 mm [facility] Use as instructed 2 times daily 200 [...] Huma Campo Mba, Division of Hospitalist Medicine [facility] [1] Past Medical History: Diagnosis Date Anxiety [...] original note were not included. PHYSICAL THERAPY [facility] Initial Evaluation Name/MRN: Dameon Potter ([id number]) Evaluation Date: 05/14/2025 Date of : 1955 Admission Date: 05/11/2025 5:34 PM Age: 70 y.o. Room[facility]Bed: [facility] A Discharge Recommendation: Fpc Facility Assessment IMPRESSION: Pt admitted for below. Pt CARTON FILLER was living alone and struggling to perform [...] Pressure injury of right buttock, stage 2 ([facility]/HCC) 05/11/2025 Cellulitis of lower extremity 11/21/2024 Weight gain 11/21/2024 Poor sleep hygiene 11/10/2024 Cognitive decline 11/06/2024 Atrial fibrillation (HCC) 11/06/2024 Moderate aortic stenosis 11/06/2024 Severe malnutrition (CMS/HCC) (HCC) 11/03/2024 Lymphedema of both lower extremities 11/01/2023 MDD (major depressive disorder) 11/01/2023 Urinary incontinence 11/01/2023 Asthma ([facility]/HCC) 11/01/2023 Chronic rhinitis 11/01/2023 RADHA (obstructive sleep apnea) 11/01/2023 Polycystic ovarian syndrome 11/01/2023 Corneal epithelial basement membrane dystrophy 10/03/2022 Diabetic retinopathy associated with type 2 diabetes mellitus ([facility]) 07/05/2022 Malignant neoplasm of uterus ([facility]) 07/05/2022 Malnutrition of mild degree (Bianchi: 75% to less than 90% of standard weight) ([facility]) 07/05/2022 Moderate recurrent major depression ([facility]/HCC) 07/05/2022 Thyroglossal duct cyst 07/05/2022 Type 2 diabetes mellitus with hyperglycemia ([facility]) 07/05/2022 Postmenopausal bleeding 09/03/2020 Dry eye syndrome of bilateral lacrimal glands 11/04/2018 Nuclear sclerotic cataract, bilateral 05/24/2017 Posterior subcapsular age-related cataract of left eye 05/22/2017 Primary open angle glaucoma of both eyes, mild stage 11/13/2016 Cortical cataract of both eyes 05/05/2015 Chronic sinusitis 03/12/2013 Endometrial cancer (HCC) 09/30/2020 Debility 06/20/2018 Morbid obesity ([facility]/HCC) 01/31/2018 Hepatic steatosis 01/29/2018 Calculus of gallbladder [...] of Care supervision is transferred to a [facility] Therapy Services Physical Therapist. Goals and/or [...] expose wisdom teeth THYROGLOSSAL DUCT EXCISION [address] [facility] Dr. Vin Keating THYROIDECTOMY thyroid cyst UMBILICAL HERNIA REPAIR 01/29/2018 w/ LRYGB and Lap Aggie - [facility] UPPER GASTROINTESTINAL ENDOSCOPY 03/20/2017 pre op, [facility] WISDOM TOOTH EXTRACTION 2013 [facility] [employer] Images from the original note were not included. [facility] Wound Care Progress Note Dameon Potter AGE: [...] cyanosis Abdominal fold/Groin: Scattered superficial wounds noted. [place]/red tissue. Moisture/excoriation noted. Erythema present. 05/12/25 Bilateral [...] soap and water. Apply miconazole powder. Leave HEALTH EDUCATION ASSISTANT. Apply BID and PRN Bilateral medial thighs: Fungal Dermatitis -Cleanse with Hibiclens soap and water. Apply miconazole powder. Leave HEALTH EDUCATION ASSISTANT. Apply BID and PRN Sacrum extending to [...] to follow Recommend to follow up at [facility] after hospital [...] expose wisdom teeth THYROGLOSSAL DUCT EXCISION [address] [facility]- Dr. Vin Keating THYROIDECTOMY thyroid cyst [...] Relation: Niece Secondary Emergency Contact: Jose Potter [place] Relation: Huma Campo Jeffery, Division of Hospitalist Medicine [facility] [1] Past Medical History: Diagnosis Date Anxiety [...] placed 05/12. Po intakes or regular diet 19582% this morning. CBW 201# - some wt loss is noted, however not clinically significant at this time. A1c improved since October 12.9% -> 7.3%. Pt unavailable for RD discussion x 2 attempts. Estimated Daily Nutrient Needs: Energy Requirements Based On: Kcal/kg Weight Used for Energy Requirements: [place] Weight for Energy Calculation (kg): 59 kg Total Energy Requirements (kcals/day): 6948-0969 (25-30 kcals/kg) Weight Used for Protein Requirements: [place] Weight in Kg Used for Protein Requirements: [...] TSH 3.03 11/02/2024 VITD25 22 (L) 04/06/2021 [id number] 1,369 (H) 11/03/2024 FOLATE 16.6 03/04/2020 ZINC [...] Current Body Weight: 91.2 kg (201 lb) [place] Body Weight (lbs) (Calculated): 130 lbs [place] Body Weight (Kg) (Calculated): 59 kg % [place] Body Weight (Calculated): 154.6 % BMI (kg/m2) [...] Sharon Guevaradavin MS, RD, LD Contact: or Sykio Chat (dial *[phone] from hospital phone) [1] Past Medical History: [...] Relation: Niece Secondary Emergency Contact: Jose Potter [place] Mobile Relation: Huma Campo Mba, DO Division of Hospitalist Medicine [facility] [1] Past Medical History: Diagnosis Date Anxiety [...] complication (HCC) Urinary tract infection Uterine cancer ([facility]) Vitamin D deficiency 05/10/2017 Zinc deficiency 06/21/2018 [...] Date: 05/11/2025 PCP: Christy Rizzo MD Room#: N4-791/N4-562 A BRIEF HOSPITAL COURSE: 70-yo F, PMHx [...] Sibling Alber Jeffery, Division of Hospitalist Medicine [facility] [1] Past Medical History: Diagnosis Date Anxiety [...] mL/hr (05/12/25 0637) documented in this encounter [facility] 05-19-2025 Nurse Note Wound [...] assessments and treatment plan, please see Wound/Ostomy SHOWROOM EXECUTIVE DIRECTOR progress notes and treatment plans. Prevention Measures in place, including: Envella Bed, [place] sheet with pillows/wedges, (pt turned to right side with wedge pillow), Bilateral foam heel protectors (pt declined at this time but agreeable to leave at bedside for future use), Heels elevated off bed on pillows, Bilateral Elbows (off loaded on pillow), Sacral foam ( please follow Wound Ostomy/SHOWROOM EXECUTIVE DIRECTOR treatment plan), ET mix and Zinc/Moisture Barrier [...] Ospina order placed. documented in this encounter [facility] 05-18-2025 Note Referral placed to [facility] via [facility] per TCC request. Await review and response regarding ability to accept. TCC notified. [facility] 05-18-2025 Note [facility] unable to accept. Referral placed to [facility]. [facility] 05-18-2025 Note Referral placed to [facility] via [facility] per TCC request. Await review and response regarding ability to accept. TCC notified. [facility] 05-16-2025 Consult note Associated Order (s): IP CONSULT TO CARDIOLOGY [facility] [place] Electrophysiology Consult Note Reason for Consult/Chief Complaint: [...] 2.1 oz (93.5 kg), SpO2 98%. @IODETAILS@ @[id number]@ Physical Exam Vitals reviewed. Constitutional: Appearance: Normal [...] content normal. Judgment: Judgment normal. Laboratory Tests: @[id number](WBC:5,HGB:5,HCT:5,M CV:5,PLT:5)@ Lab Results Component Value Date GLUCOSE [...] expose wisdom teeth THYROGLOSSAL DUCT EXCISION [address] [facility]- [facility] Vin Keating THYROIDECTOMY thyroid cyst [...] the original note were not included. [facility] Wound Care CONSULT Note Dameon Potter AGE: [...] cyanosis Abdominal fold/Groin: Scattered superficial wounds noted. [place]/red tissue. Moisture/excoriation noted. Erythema present. 05/12/25 Bilateral [...] soap and water. Apply miconazole powder. Leave HEALTH EDUCATION ASSISTANT. Apply BID and PRN Bilateral medial thighs: Fungal Dermatitis -Cleanse with Hibiclens soap and water. Apply miconazole powder. Leave HEALTH EDUCATION ASSISTANT. Apply BID and PRN Sacrum extending to [...] to follow Recommend to follow up at [facility] after hospital [...] expose wisdom teeth THYROGLOSSAL DUCT EXCISION [facility]- Dr. Vin Keating THYROIDECTOMY thyroid cyst [...] insulin pen needle 32G x 4 mm [facility] Use as instructed 2 times daily 200 [...] creatinine, and vancomycin levels interfaced automatically to [employer] and data has been analyzed and interpreted. [...] via Secure Chat documented in this encounter [facility] 05-11-2025 Note [facility] History and physical note Images [...] Relation: Mela Secondary Emergency Contact: Jose Potter [place] [employer] Relation: Sibling [employer] Dameon Potter : 1955 Primary Care Physician: Christy Rizzo MD The patient and/or family/surrogate voluntarily agreed to participate in ACP services. Patient s cognitive capacity: Alert and oriented Code Status: [_] [FULL CODE - Continue all advanced life support: CPR,intubation,invasive procedures] [X] [DNR-CCA - DO NOT do CPR, intubation] [_] [DNR-HRIS SPECIALIST - Comfort care only] [_] DNR form [...] expose wisdom teeth THYROGLOSSAL DUCT EXCISION [address] [facility] Vin Keating THYROIDECTOMY thyroid cyst [...] Itching Other Itching documented in this encounter [facility] 05-11-2025 Emergency department Note Emergency Department Encounter [facility] EMERGENCY DEPT Patient: Dameon Potter : [...] [employer] Nettie Rhodes DO 05/11/25 1975 Images from the original note were not [...] Abnormal Glucose 273 (*) Narrative: Performed by: [facility] [place], [address] [place], [place] [id number] [place] ID: [id number] BLOOD CULTURE - Normal Blood Culture Blood culture incubation started Narrative: Blood Collection Site: Right Wrist BLOOD CULTURE - Normal Blood Culture Blood culture incubation started Narrative: Blood Collection Site: Left Arm URINE CULTURE, ORDERABLE Narrative: The following orders were created for panel order Urine culture. Procedure Abnormality Status --------- ------ Urine culture[[id number]] Urine Hold Cup[[id number]] Please view results for these tests on [...] 11:42 PM EDT documented in this encounter [facility] 01-03-2025 Telephone encounter Note Patient called with negative PET scan. With this and negative biopsy unlikely recurrent endometrial cancer. Will send to her primary care physician, possible pulmonary consult. [facility] 01-03-2025 Miscellaneous Notes Patient called with negative PET scan. With this and negative biopsy unlikely recurrent endometrial cancer. Will send to her primary care physician, possible pulmonary consult. documented in this encounter [facility] 01-01-2025 Telephone encounter Note We have been unable to reach your patient to schedule their testing. Test Name: Transthoracic echocardiogram (TTE) complete with contrast, bubble, strain, and 3D PRN 1st Attempt: per chart this was completed and resulted 11/03/24. TE to office. 01/01/25 LR [facility] 01-01-2025 Miscellaneous Notes We have been unable to reach your patient to schedule their testing. Test Name: Transthoracic echocardiogram (TTE) complete with contrast, bubble, strain, and 3D PRN 1st Attempt: per chart this was completed and resulted 11/03/24. TE to office. 01/01/25 LR documented in this encounter [facility] 12-23-2024 Telephone encounter Note S: Patient and her home care nurse, Jaqueline with [facility] spoke with [...] >= 110 Protocols used: Blood Pressure - [id number] [facility] 12-23-2024 Miscellaneous Notes S: Patient and her home care nurse, Jaqueline with [facility] spoke with [facility] nurse regarding high blood pressure B: Onset [...] >= 110 Protocols used: Blood Pressure - [id number] documented in this encounter [facility] 12-23-2024 Telephone encounter Note Called with Ct bx., will scheudle PET [facility] 12-23-2024 Miscellaneous Notes Called with Ct bx., will scheudle PET documented in this encounter [facility] 12-22-2024 Nurse Note Discharge instructions given patient verbalizes understanding. IV discontinued, Bx. Site intact no complications. Patient wheeled out via wheelchair [facility] 12-22-2024 Miscellaneous Notes Discharge [...] continue to assess. documented in this encounter [facility] 12-22-2024 Nurse Note Pt c/o nausea. Leelee rick and crackers provided. [facility] 12-22-2024 Note Pt received from CT biopsy to IR post procedure #5. Pt A/O X 3. Pt denies pain . Bandaid right low back dry and intact. Pt repositioned for comfort. Pt declined food and drink at present. B/P elevated, will continue to assess. [facility] 12-22-2024 Nurse Note Pt received from CT biopsy to IR post procedure #5. Pt A/O X 3. Pt denies pain . Bandaid right low back dry and intact. Pt repositioned for comfort. Pt declined food and drink at present. B/P elevated, will continue to assess. [facility] 12-22-2024 Hospital Discharge instructions [...] a call between 8am and 5pm. - [facility] Radiology - [phone] - [facility] Radiology - [phone] - For questions after hours, please call [phone] and ask for the on-call Angiography Radiologist. [...] Care Everywhere.Moderate Sedation in Adults Discharge Instructions ([place] Citizen)documented in this encounter [facility] 12-22-2024 Note [facility] 12-08-2024 History of Present illness Narrative [...] nursing note reviewed. Exam conducted with a rating officer present. Constitutional: Appearance: She is obese. She [...] No current facility-administered medications for this visit. Core Shaper Sides was offered to the patient for exam. Patient accepted, medical oncology physician in room during exam documented in this encounter [facility]: [facility] 12-04-2024 Telephone encounter Note S: DMITRIY Parsons with [facility] spoke with [facility] nurse regarding high Bp. B: Onset of [...] to her liaison to reach out to older adult social work specialist regarding patient's situation. CAC Rn advised Jaqueline that a message would be sent to the office, she verbalized understanding. No further needs at this time. Reason for Disposition Systolic BP >= 160 OR Diastolic >= 100 Protocols used: Blood Pressure - [id number] [facility] 12-04-2024 Miscellaneous Notes S: DMITRIY Parsons with [facility] spoke with [facility] nurse regarding [...] to her liaison to reach out to older adult social work specialist regarding patient's situation. CAC Rn advised Jaqueline that a message would be sent to the office, she verbalized understanding. No further needs at this time. Reason for Disposition Systolic BP >= 160 OR Diastolic >= 100 Protocols used: Blood Pressure - [id number] documented in this encounter [facility] 11-25-2024 Evaluation + Plan note Associated Problem(s): Type 2 diabetes mellitus with hyperglycemia (HCC) -BGTs have improved, has had a few readings on the lower side frequently in director of database marketing, concern for hypoglycemia home-going -11/02 A1C 12.9 -Decrease Lispro to 12U with meals, and Lantus 25 units -Continue metformin ER 500mg daily, patient tolerating well, could consider up- titration in the future -Accuchecks monitor trends -Hypoglycemia protocol in place -Patient to follow-up with Endocrinology [facility] 11-25-2024 Miscellaneous Notes Associated Problem(s): Type 2 diabetes mellitus with hyperglycemia (HCC) -BGTs have improved, has had a few readings on the lower side frequently in director of database marketing, concern for hypoglycemia home-going -11/02 A1C 12.9 [...] 5mg BID -Has hospital follow-up scheduled with [facility] on 12/02/2024 with Carli CELAYA at 1000AM, informed of recent medication change. [facility] to follow until cardiology follow-up documented in this encounter [facility] 11-25-2024 Evaluation + Plan note Associated Problem(s): Atrial fibrillation (HCC) -Newly diagnosed while inpatient -Hrs have been high 50s, low 60s over the last few days, today with VS HR 49 -4/16 TTE shows hyperdynamic LVEF >75% with increased LV wall thickness. -Will decrease metoprolol to 25mg BID, discussed with patient -Continue apixaban 5mg BID -Has hospital follow-up scheduled with [facility] on 12/02/2024 with Carli CELAYA at 1000AM, informed of recent medication change. [facility] to follow until cardiology follow-up [facility] 11-25-2024 History of Present illness Narrative Images from the original note were not included. [facility] ([facility]) Follow-up Visit [facility]- Geriatric Medicine Dameon Potter : 1955 Visit Date: 11/25/2024 Facility: [facility] CC: Follow-up Note for bradycardia, DMII Assessment [...] 5mg BID -Has hospital follow-up scheduled with [facility] on 12/02/2024 with Carli CELAYA at 1000AM, informed of recent medication change. [facility] to follow until cardiology follow-up 2. Type 2 diabetes mellitus with hyperglycemia, with long-term current use of insulin (HCC) Assessment & Plan: -BGTs have improved, has had a few readings on the lower side frequently in director of database marketing, concern for hypoglycemia home-going -11/02 A1C 12.9 -Decrease Lispro to 12U with meals, and Lantus 25 units -Continue metformin ER 500mg daily, patient tolerating well, could consider up- titration in the future -Accuchecks monitor trends -Hypoglycemia protocol in place -Patient to follow-up with Endocrinology Follow up: with PCP HPI: The patient is known to me. Admitted to [facility] on 11/05 following hospitalization for hyperglycemia On [...] assured her that I would make her barrel coater and hardware sales assistant aware of the changes being made today. She is thankful for the information and care throughout her stay at SNF. Spoke with bedside MARKETING DESIGNER regarding medication changes. She states she has not yet called in patient's medications to the pharmacy, but will make sure she will call in the updated dosages. Will send progress note as FYI of medication changes to PCP, cardiology, and endocrinology. I called and spoke to [facility] liaison regarding medication changes as well to ensure nursing will have updated list and can provide teaching when they open services tomorrow. HistoryReviewed: Past Medical History: Diagnosis Date Anxiety Asthma Atrial fibrillation ([facility]) Deficiency of nutrient elements Depression Dry eye Endometrial cancer ([facility]) ([facility]) 09/30/2020 Fatigue Gastritis GERD (gastroesophageal reflux disease) Glaucoma Glaucoma Hyperlipidemia Hypertension Hypothyroid Hypothyroidism Incontinence Intestinal malabsorption Lymph edema Morbid obesity ([facility]) Obstructive sleep apnea PMB (postmenopausal bleeding) Polycystic ovarian syndrome Psoriasis SOB (shortness of breath) on exertion Thyroglossal duct cyst Type 2 diabetes mellitus without complication ([facility]) Urinary tract infection Uterine cancer ([facility]) ([facility]) Vitamin D deficiency 05/10/2017 Zinc deficiency 06/21/2018 [...] phrases are mis-transcribed.) documented in this encounter [facility] 11-21-2024 Evaluation + Plan note Associated Problem(s): Mixed hyperlipidemia -Continue atorvastatin [facility] 11-21-2024 Miscellaneous Notes Associated [...] 5mg BID -Has hospital follow-up scheduled with [facility] on 12/02/2024 with Carli Aldrich APRN-OPTICAL ADVISOR at 1000AM Associated Problem(s): Essential hypertension, benign -Overall controlled currently -Prior to admission on olmesartan, and carvedilol discontinued for now -Continue metoprolol -Has follow-up with [facility] on 12/02 as above Associated Problem(s): [...] - Recommend outpatient follow up at the [facility] ([place] [facility]) for formal congitive testing Associated Problem(s): Weight gain - patient has gained 10 lbs since admission - prior to admission PCP notes say she had been losing weight- they were concerned about her high blood sugars and memory loss as contributors - suspect weight gain due to improved PO intake here and lymphedema - will need close follow up at [place] for memory loss since she's returning home alone and meal prep will continue to be a concern Associated Problem(s): Cellulitis of lower extremity - wound team started Bactrim 11/17-11/24 for bilateral LE cellulitis - both legs were very swollen and weeping per report documented in this encounter [facility] 11-21-2024 Evaluation + Plan note Associated Problem(s): Moderate recurrent major depression (HCC) - stable - continue Celexa 20 units daily [facility] 11-21-2024 Evaluation + Plan note Associated Problem(s): Primary open angle glaucoma of both eyes, mild stage -Continue brimonidine, timolol [facility] 11-21-2024 Evaluation + Plan note Associated Problem(s): Hypothyroidism -11/02 TSH 3.03 -Continue levothyroxine [facility] 11-21-2024 Evaluation + Plan note Associated Problem(s): Type 2 diabetes mellitus with hyperglycemia (HCC) -BGTs have improved, average 150 -11/02 A1C 12.9 -Continue Lispro to 15U with meals -Continue Lantus 28 units, and metformin ER 500mg daily -Accuchecks monitor trends -Hypoglycemia protocol in place [facility] 11-21-2024 Evaluation + Plan note Associated Problem(s): Vitamin D deficiency -11/10 Vitamin D: 26, patient likely not taking supplementation regularly -Continue daily supplement for now- 2000 units daily [facility] 11-21-2024 Evaluation + Plan note Associated Problem(s): Lymphedema of both lower extremities -BLE wrapped at time of exam -Unna boot treatments applied 11/17 -10 lbs weight gained since admission likely 2/2 lymphedema and improved oral intake -In-house wound care following patient while admitted [facility] 11-21-2024 Evaluation + Plan note Associated Problem(s): Endometrial cancer (CMS/HCC) (HCC) - lost to follow up with gyne - will need follow up - reviewed with patient today T [facility] 11-21-2024 Evaluation + Plan note Associated Problem(s): Atrial fibrillation (HCC) -Newly diagnosed while inpatient -Currently rate controlled -11/05 TTE shows hyperdynamic LVEF >75% with increased LV wall thickness. -Started on metoprolol 50mg BID, and apixaban 5mg BID -Has hospital follow-up scheduled with [facility] on 12/02/2024 with Carli Aldrich APRN-OPTICAL ADVISOR at 1000AM T [facility] 11-21-2024 Evaluation + Plan note Associated Problem(s): Essential hypertension, benign -Overall controlled currently -Prior to admission on olmesartan, and carvedilol discontinued for now -Continue metoprolol -Has follow-up with [facility] on 5/13 as above [facility] 11-21-2024 Evaluation + Plan [...] closely - follow up with cardiology 12/02/24 [facility] 11-21-2024 Evaluation + Plan note Associated Problem(s): Asthma - has PRN albuterol - hasn't used it since admission [facility] 11-21-2024 Evaluation + Plan note Associated Problem(s): Poor sleep hygiene -continue melatonin 5mg nightly [facility] 11-21-2024 Evaluation + Plan [...] -Plan for discharge home alone on 11/25/24 [facility] 11-21-2024 Evaluation + Plan note Associated Problem(s): Cognitive decline -BIMS 05/06 - continuing to make improvements with Speech Therapy in area of cognition - Recommend outpatient follow up at the [facility] ([place] [facility]) for formal congitive testing [facility] 11-21-2024 Evaluation + Plan [...] - will need close follow up at [facility] for memory loss since she's returning home alone and meal prep will continue to be a concern [facility] 11-21-2024 Evaluation + Plan note Associated Problem(s): Cellulitis of lower extremity - wound team started Bactrim 11/17-11/24 for bilateral LE cellulitis - both legs were very swollen and weeping per report [facility] 11-21-2024 History of Present illness Narrative Images from the original note were not included. [facility] ([facility]) Discharge Summary [facility] - [facility] Dameon Potter : 1955 PCP: Christy Rizzo MD Rehab Physician: Marianne Tang M.D. Rehab SHOWROOM EXECUTIVE DIRECTOR: Araseli Can CNP Visit Date: 11/21/2024 Facility: [facility] CODE STATUS: Full Code CC: Skilled Rehabilitation [...] for now -Continue metoprolol -Has follow-up with [facility] on 12/02 as above 3. Persistent atrial fibrillation (HCC) Assessment & Plan: -Newly diagnosed while inpatient -Currently rate controlled -11/05 TTE shows hyperdynamic LVEF >75% with increased LV wall thickness. -Started on metoprolol 50mg BID, and apixaban 5mg BID -Has hospital follow-up scheduled with [facility] on 12/02/2024 with Carli Aldrich APRN-OPTICAL ADVISOR at 1000AM 4. Type 2 diabetes mellitus with hyperglycemia, with long-term current use of insulin ([facility]) Assessment & Plan: -BGTs have improved, average 150 -11/02 A1C 12.9 -Continue Lispro to 15U with meals -Continue Lantus 28 units, and metformin ER 500mg daily -Accuchecks monitor trends -Hypoglycemia protocol in place 5. Cognitive decline Assessment & Plan: -BIMS 05/06 - continuing to make improvements with Speech Therapy in area of cognition - Recommend outpatient follow up at the [facility] ([facility]) for formal congitive testing 6. Cellulitis of [...] - will need close follow up at [facility] for memory loss since she's returning home [...] DMII, HTN, hypothyroidism, HLD, depression admitted to [facility] on 11/01/2024 for hyperglycemia. Patient also found to have new onset atrial fibrillation, metoprolol and apixaban started inpatient. Her urine culture was positive for E.coli was treated with IV ceftriaxone, switched to PO keflex on discharge for 1 more administration to finish a 5 day course. PT/OT recommended SNF on discharge. The patient was then transferred to [facility] for skilled rehab on 11/05/2024. Rehabilitation Course: [...] [facility]/Occupational Therapy/Speech Therapy/ Home Health Aide/Packing Supervisor and Passport- Direction Home referral made. Patient [...] History: Diagnosis Date Anxiety Asthma Atrial fibrillation ([facility]) Deficiency of nutrient elements Depression Dry eye Endometrial cancer ([facility]) ([facility]) 09/30/2020 Fatigue Gastritis GERD (gastroesophageal reflux disease) Glaucoma Glaucoma Hyperlipidemia Hypertension Hypothyroid Hypothyroidism Incontinence Intestinal malabsorption Lymph edema Morbid obesity ([facility]) Obstructive sleep apnea PMB (postmenopausal bleeding) Polycystic ovarian syndrome Psoriasis SOB (shortness of breath) on exertion Thyroglossal duct cyst Type 2 diabetes mellitus without complication (HCC) Urinary tract infection Uterine cancer ([facility]) ([facility]) Vitamin D deficiency 05/10/2017 Zinc deficiency 06/21/2018 [...] Vitamin D: 26 Home Care Certification Documentation [id number] CERTIFICATION OF HOMEBOUND STATUS: Ms. Potter is homebound due to the following reasons: Require significant assistance of another person to leave home due to weakness caused by debilitation for that reason, any absence from the home requires of her considerable and taxing effort. Primary reason patient needs Home Care: Debility Home Care Services: she needs following home services: [facility], PT, OT, Home Health Aide, Automotive Electrician Helper, and Speech Therapy Reason for Referral to [...] -Consult speech-language pathology forcognitive impairment, -Consult medical office worker fortransportation needs, -Consult home health aide for [...] Severe complexity: Follow-up within 7 calendar days (12007) FOLLOW UP TESTING, PENDING RESULTS OR REFERRALS AT TRANSITIONAL CARE VISIT: Yes, describe: Needs follow-up appointments with [facility], endocrinology and Gyne-Onc Follow up with Christy [...] above time frame. documented in this encounter [facility] 11-19-2024 Telephone encounter Note Letter mailed to patient [facility] 11-19-2024 Miscellaneous Notes Letter [...] medications she is taking once discharged from [facility] Thanks S: pt calling [facility] with BG problem B: today A: pt [...] is with them with take them to [facility] ER. Reason for Disposition Blood glucose > 500 mg/dL (27.8 mmol/L) Protocols used: Diabetes - High Blood [id number] documented in this encounter [facility] 11-18-2024 Evaluation + Plan note Associated Problem(s): Lymphedema of both lower extremities -BLE wrapped at time of exam -Unna boot treatments applied yesterday, to remain in place x1 week -6lbs weight gained since admission likely 2/2 lymphedema, will follow trends -Bactrim 800-160 BID x7 day for cellulitis -In-house wound care following patient while admitted [facility] 11-18-2024 Miscellaneous Notes Associated [...] BGT remain elevated documented in this encounter [facility] 11-18-2024 Evaluation + Plan note Associated Problem(s): Type 2 diabetes mellitus with hyperglycemia (HCC) -BGTs have improved, but still elevated. -11/02 A1C 12.9 -Increase Lispro to 15U with meals -Continue Lantus 28 units, and metformin ER 500mg daily -Accuchecks monitor trends -Hypoglycemia protocol in place -Could consider increase in Lantus if BGT remain elevated [facility] 11-18-2024 History of Present illness Narrative Images from the original note were not included. [facility] ([facility]) Follow-up Visit [facility] Medicine Dameon Potter : 1955 [...] patient is known to me. Admitted to [facility] on 11/05 following hospitalization for hyperglycemia On [...] History: Diagnosis Date Anxiety Asthma Atrial fibrillation ([facility]) Deficiency of nutrient elements Depression Dry eye Endometrial cancer ([facility]) ([facility]) 09/30/2020 Fatigue Gastritis GERD (gastroesophageal reflux disease) Glaucoma Glaucoma Hyperlipidemia Hypertension Hypothyroid Hypothyroidism Incontinence Intestinal malabsorption Lymph edema Morbid obesity ([facility]) Obstructive sleep apnea PMB (postmenopausal bleeding) Polycystic ovarian syndrome Psoriasis SOB (shortness of breath) on exertion Thyroglossal duct cyst Type 2 diabetes mellitus without complication ([facility]) Urinary tract infection Uterine cancer ([facility]) ([facility]) Vitamin D deficiency 05/10/2017 Zinc deficiency 06/21/2018 [...] phrases are mis-transcribed.) documented in this encounter [facility] 11-13-2024 Telephone encounter Note Second attempt to reach patient no answer/unable to leave voicemail. [facility] 11-12-2024 Evaluation + Plan note Associated Problem(s): Vitamin D deficiency -11/10 Vitamin D: 26, patient likely not taking supplementation regularly -Continue daily supplement for now -Will need extensive education on medications prior to discharge [facility] 11-12-2024 Note -11/10 Vitamin D: 26, patient likely not taking supplementation regularly -Continue daily supplement for now -Will need extensive education on medications prior to discharge [facility] 11-12-2024 Miscellaneous Notes Associated Problem(s): Vitamin D [...] to LLE. Seen today by wound care MARKETING DESIGNER, awaiting orders from wound SHOWROOM EXECUTIVE DIRECTOR per documentation -BLE follows with wound care center per patient -In-house wound care following patient while admitted documented in this encounter [facility] 11-12-2024 Evaluation + Plan note Associated Problem(s): Type 2 diabetes mellitus with hyperglycemia (HCC) -BGTs remain elevated despite increase to prandial insulin -11/02 A1C 12.9 -Will add metformin ER 500mg daily, if patient tolerates could increase to 1000mg daily -Increase Lispro to 12U with meals -Continue Lantus 28 units -Accuchecks monitor trends -Hypoglycemia protocol in place [facility] 11-12-2024 Evaluation + Plan note Associated Problem(s): Lymphedema of both lower extremities -Swelling noticeable today on exam, especially to LLE. Seen today by wound care MARKETING DESIGNER, awaiting orders from wound SHOWROOM EXECUTIVE DIRECTOR per documentation -BLE follows with wound care center per patient -In-house wound care following patient while admitted [facility] 11-12-2024 History of Present illness Narrative Images from the original note were not included. [facility] (S[facility]) Follow-up Visit [facility]- [facility] Medicine Dameon Potter : 1955 Visit Date: 11/12/2024 Facility: [facility] CC: Follow-up Note for DM2, lymphedema Assessment and Plan: 1. Lymphedema of both lower extremities Assessment & Plan: -Swelling noticeable today on exam, especially to LLE. Seen today by wound care MARKETING DESIGNER, awaiting orders from wound SHOWROOM EXECUTIVE DIRECTOR per documentation -BLE follows with wound care [...] patient is known to me. Admitted to [facility] on 11/05 following hospitalization for hyperglycemia Informed [...] concerns regarding wound care with wound care MARKETING DESIGNER as in-house wound team is managing her wounds. Per facility EMR wound care MARKETING DESIGNER is awaiting orders from SHOWROOM EXECUTIVE DIRECTOR. Call placed to mela Pickett, introduced self [...] phrases are mis-transcribed.) documented in this encounter [facility] 11-12-2024 Telephone encounter Note Attempted to reach patient no answer/unable to leave voicemail. [facility] 11-10-2024 Evaluation + Plan note Associated Problem(s): Poor sleep hygiene -Schedule melatonin 5mg nightly [facility] 11-10-2024 Evaluation + Plan [...] stay -SW to follow for discharge planning [facility] 11-10-2024 Miscellaneous Notes Associated [...] protocol in place documented in this encounter [facility] 11-10-2024 Evaluation + Plan note Associated Problem(s): Type 2 diabetes mellitus with hyperglycemia (HCC) -BGTs remain elevated -4/13 A1C 12.9 -Increase Lispro to 10U with meals -Continue Lantus 28 units -Could consider addition of metformin as could help with insulin resistance 2/2 to PCOS -Accuchecks monitor trends -Hypoglycemia protocol in place [facility] 11-10-2024 History of Present illness Narrative Images from the original note were not included. [facility] (SNF) Follow-up Visit [facility] Dameon Potter : 1955 [...] patient is known to me. Admitted to [facility] on 11/05 following hospitalization for hyperglycemia On [...] History: Diagnosis Date Anxiety Asthma Atrial fibrillation ([facility]) Deficiency of nutrient elements Depression Dry eye Endometrial cancer ([facility]) ([facility]) 09/30/2020 Fatigue Gastritis GERD (gastroesophageal reflux disease) Glaucoma Glaucoma Hyperlipidemia Hypertension Hypothyroid Hypothyroidism Incontinence Intestinal malabsorption Lymph edema Morbid obesity ([facility]) Obstructive sleep apnea PMB (postmenopausal bleeding) Polycystic ovarian syndrome Psoriasis SOB (shortness of breath) on exertion Thyroglossal duct cyst Type 2 diabetes mellitus without complication ([facility]) Urinary tract infection Uterine cancer ([facility]) ([facility]) Vitamin D deficiency 05/10/2017 Zinc deficiency 06/21/2018 [...] phrases are mis-transcribed.) documented in this encounter [facility] 11-08-2024 Evaluation + Plan [...] - Recommend outpatient follow up at the [facility] ([facility]) for formal congitive testing when in typical state of health [facility] 11-08-2024 Evaluation + Plan note Associated Problem(s): Debility - Continue Physical Therapy/ Occupational Therapy with goal to improve function [facility] 11-08-2024 Miscellaneous Notes Associated [...] - Recommend outpatient follow up at the [facility] ([facility]) for formal congitive testing when in typical state of health Associated Problem(s): Debility - Continue Physical Therapy/ Occupational Therapy with goal to improve function Associated Problem(s): Mixed hyperlipidemia -Continue atorvastatin Associated Problem(s): Moderate recurrent major depression (HCC) - patient very upset about being in long-term - will continue to work with her and family to determine best discharge - continue Celexa 20 units daily Associated Problem(s): Hypothyroidism -11/02 TSH 3.03 -Continue levothyroxine Associated Problem(s): Type 2 diabetes mellitus with hyperglycemia (HCC) -BGTs elevated since arrival to [facility] -11/02 A1C 12.9 -Continue Lispro 8U with [...] follow up with gyne - disposition from [facility] not clear yet - will need follow up Associated Problem(s): Primary open angle glaucoma of both eyes, mild stage -Continue brimonidine, timolol Associated Problem(s): Atrial fibrillation (HCC) -Newly diagnosed while inpatient -Currently rate controlled -11/05 TTE shows hyperdynamic LVEF >75% with increased LV wall thickness. -Started on metoprolol 50mg BID, and apixaban 5mg BID -Has hospital follow[facility] scheduled [place] [facility] on 12/02/2024 with Carli Aldrich APRN-OPTICAL ADVISOR at 1000AM Associated Problem(s): Essential hypertension, benign -Overall controlled currently -Prior to admission on olmesartan, and carvedilol discontinued for now -Continue metoprolol -Has follow-up with [facility] on 12/02 as above Associated Problem(s): [...] with cardiology 12/02/24 documented in this encounter [facility] 11-08-2024 Evaluation + Plan note Associated Problem(s): Mixed hyperlipidemia -Continue atorvastatin [facility] 11-08-2024 Evaluation + Plan note Associated Problem(s): Moderate recurrent major depression (HCC) - patient very upset about being in long-term - will continue to work with her and family to determine best discharge - continue Celexa 20 units daily [facility] 11-08-2024 Evaluation + Plan note Associated Problem(s): Hypothyroidism -11/02 TSH 3.03 -Continue levothyroxine [facility] 11-08-2024 Evaluation + Plan note Associated Problem(s): Type 2 diabetes mellitus with hyperglycemia (HCC) -BGTs elevated since arrival to [facility] -11/02 A1C 12.9 -Continue Lispro 8U with meals, and increase Lantus from 24 to 28 units -Accuchecks monitor trends -Hypoglycemia protocol in place [facility] 11-08-2024 Evaluation + Plan note Associated Problem(s): Vitamin D deficiency -Check Vitamin D level 11/10 -Continue daily supplement for now T [facility] 11-08-2024 Evaluation + Plan note Associated Problem(s): Lymphedema of both lower extremities - long standing per chart T [facility] 11-08-2024 Evaluation + Plan note Associated Problem(s): Endometrial cancer (CMS/HCC) (HCC) - lost to follow up with gyne - disposition from [facility] not clear yet - will need follow up [facility] 11-08-2024 Evaluation + Plan note Associated Problem(s): Primary open angle glaucoma of both eyes, mild stage -Continue brimonidine, timolol [facility] Fwd: [facility] 11-08-2024 Evaluation + Plan note Associated Problem(s): Atrial fibrillation (HCC) -Newly diagnosed while inpatient -Currently rate controlled -11/05 TTE shows hyperdynamic LVEF >75% with increased LV wall thickness. -Started on metoprolol 50mg BID, and apixaban 5mg BID -Has hospital follow-up scheduled with [facility] on 12/02/2024 with Carli Aldrich APRN-OPTICAL ADVISOR at 1000AM [facility] 11-08-2024 Evaluation + Plan note Associated Problem(s): Essential hypertension, benign -Overall controlled currently -Prior to admission on olmesartan, and carvedilol discontinued for now -Continue metoprolol -Has follow-up with [facility] on 12/02 as above [facility] Fwd: [facility] 11-08-2024 Evaluation + Plan note Associated Problem(s): [...] closely - follow up with cardiology 12/02/24 [facility] Fwd: [facility] 11-07-2024 Telephone encounter Note At this time [...] is taking once discharged from [facility] 11-07-2024 History of Present illness Narrative Images from the original note were not included. [facility] (SNF) Admission History and Physical [facility] - Geriatric Medicine Dameon Potter : [...] - Recommend outpatient follow up at the [facility]) for formal congitive testing [...] for now -Continue metoprolol -Has follow-up with [facility] on 12/02 as above 7. Persistent atrial fibrillation (HCC) Assessment & Plan: -Newly diagnosed while inpatient -Currently rate controlled -11/05 TTE shows hyperdynamic LVEF >75% with increased LV wall thickness. -Started on metoprolol 50mg BID, and apixaban 5mg BID -Has hospital follow-up scheduled with [facility] on 12/02/2024 with Carli Aldrich APRN-OPTICAL ADVISOR at 1000AM 8. Primary open angle glaucoma [...] - patient very upset about being in long-term - will continue to work with her and family to determine best discharge - continue Celexa 20 units daily 14. Mixed hyperlipidemia Assessment & Plan: -Continue atorvastatin Follow up: 3-7 days, sooner if problem arises HPI: The patient is new to me but seen by SNF team. Hospital Course: Transferring Hospital: [facility] Admit Date: 11/01/2024 Discharge Date: 11/05/2024 Dameon Potter is a 69 y.o. female admitted for hyperglycemia and new onset A-fib. PMHx of DMII, HTN, hypothyroidism, HLD, depression admitted to [facility] on 11/01/2024 for hyperglycemia. Patient also found to have new onset atrial fibrillation, metoprolol and apixaban started inpatient. Her urine culture was positive for E.coli was treated with IV ceftriaxone, switched to PO keflex on discharge for 1 more administration to finish a 5 day course. PT/OT recommended SNF on discharge. The patient was then transferred to [facility] for skilled rehab on 11/05/2024. Interval History: Dameon was very upset when I saw her. Feels like she has been kidnapped and trafficked. Does not understand how she could get admitted here. She is not sure where she is but knows it is in long-term. Says she had to drag that out of them. Very tangential. She knew it was Sunday and the week of the . Says she resents being kidnapped. 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 Says she has started therapy and feels she is able to move on her own. Longstanding history of lymphedema. Used to go to [facility] for leg wraps. Started to receive palliative care in the home. Says that she has some long-term care insurance. Is upset with her niece in [place] who decided to send her here. Hospital [...] 3.03 11/02/2024 Lab Results Component Value Date [id number] 1,369 (H) 11/03/2024 Lab Results Component Value [...] History: Diagnosis Date Anxiety Asthma Atrial fibrillation ([facility]) Deficiency of nutrient elements Depression Dry eye Endometrial cancer (CMS/HCC) ([facility]) 09/30/2020 Fatigue Gastritis GERD (gastroesophageal reflux disease) Glaucoma Glaucoma Hyperlipidemia Hypertension Hypothyroid Hypothyroidism Incontinence Intestinal malabsorption Lymph edema Morbid obesity ([facility]) Obstructive sleep apnea PMB (postmenopausal bleeding) Polycystic ovarian syndrome Psoriasis SOB (shortness of breath) on exertion Thyroglossal duct cyst Type 2 diabetes mellitus without complication ([facility]) Urinary tract infection Uterine cancer ([facility]) ([facility]) Vitamin D deficiency 05/10/2017 Zinc deficiency 06/21/2018 [...] expose wisdom teeth THYROGLOSSAL DUCT EXCISION [address] [facility]- [address]. Vin Keating THYROIDECTOMY UMBILICAL HERNIA [...] phrases are mis-transcribed.) documented in this encounter [facility] 11-06-2024 Evaluation + Plan note Associated Problem(s): Type 2 diabetes mellitus with hyperglycemia (HCC) -BGTs elevated since arrival to [facility] -11/02 A1C 12.9 -Will add low dose SSI today, likely will need increase in prandial insulin next week -Continue Lispro 8U with meals, and 24U Lantus -Accuchecks monitor trends -Hypoglycemia protocol in place [facility] 11-06-2024 Miscellaneous Notes Associated Problem(s): Type 2 diabetes mellitus with hyperglycemia (HCC) -BGTs elevated since arrival to [facility] -11/02 A1C 12.9 -Will add low dose [...] for now -Continue metoprolol -Has follow-up with [facility] on 12/02 as above Associated Problem(s): [...] 5mg BID -Has hospital follow-up scheduled with [facility] on 12/02/2024 with Carli CELAYA at [...] - Recommend outpatient follow up at the [facility] ([facility]) for formal congitive testing when in typical state of health Associated Problem(s): Debility -Current status: assist x1 -Contributing factors: hospitalization, acute illness, new onset afib -Continue PT/OT during SNF stay -SW to follow for discharge planning documented in this encounter [facility] 11-06-2024 Evaluation + Plan note Associated Problem(s): Vitamin D deficiency -Check Vitamin D level 11/07 -Continue daily supplement for now [facility] 11-06-2024 Evaluation + Plan note Associated Problem(s): Hypothyroidism -11/02 TSH 3.03 -Continue levothyroxine [facility] 11-06-2024 Evaluation + Plan note Associated Problem(s): Primary open angle glaucoma of both eyes, mild stage -Continue brimonidine, timolol [facility] 11-06-2024 Evaluation + Plan note Associated Problem(s): Mixed hyperlipidemia -Continue atorvastatin T [facility] 11-06-2024 Evaluation + Plan note Associated Problem(s): Essential hypertension, benign -Overall controlled currently -Prior to admission on olmesartan, and carvedilol discontinued for now -Continue metoprolol -Has follow-up with [facility] on 12/02 as above T [facility] 11-06-2024 Evaluation + Plan [...] pro BNP 6800. -Monitor volume status closely [facility] 11-06-2024 Evaluation + Plan note Associated Problem(s): Atrial fibrillation (HCC) -Newly diagnosed while inpatient -Currently rate controlled high end of normal, HR remains irregular, patient denies shortness of breath or palpitations -11/05 TTE shows hyperdynamic LVEF >75% with increased LV wall thickness. -Started on metoprolol 50mg BID, and apixaban 5mg BID -Has hospital follow-up scheduled with [facility] on 12/02/2024 with Carli CELAYA at 1000AM [facility]: [facility] 11-06-2024 Evaluation + Plan note Associated Problem(s): [...] - Recommend outpatient follow up at the [facility] ([facility]) for formal congitive testing when in typical state of health [facility] 11-06-2024 Evaluation + Plan note Associated Problem(s): Debility -Current status: assist x1 -Contributing factors: hospitalization, acute illness, new onset afib -Continue PT/OT during SNF stay -SW to follow for discharge planning [facility]: [facility] 11-06-2024 History of Present illness Narrative Images from the original note were not included. [facility] (SNF) Initial SHOWROOM EXECUTIVE DIRECTOR visit [facility] - Geriatric Medicine Dameon Potter : 1955 Visit Date: 11/06/2024 Facility: [facility] CC: Initial GRU SHOWROOM EXECUTIVE DIRECTOR visit S/P Hospitalization for Hyperglycemia Medication Reconciliation Nursing request SHOWROOM EXECUTIVE DIRECTOR to see patient for debility, hyperglycemia Assessment and Plan: 1. Persistent atrial fibrillation (HCC) Assessment & Plan: -Newly diagnosed while inpatient -Currently rate controlled high end of normal, HR remains irregular, patient denies shortness of breath or palpitations -11/05 TTE shows hyperdynamic LVEF >75% with increased LV wall thickness. -Started on metoprolol 50mg BID, and apixaban 5mg BID -Has hospital follow-up scheduled with [facility] on 12/02/2024 with Carli Aldrich APRN-OPTICAL ADVISOR at 1000AM 2. Type 2 diabetes mellitus [...] - Recommend outpatient follow up at the [facility] for formal congitive [...] for now -Continue metoprolol -Has follow-up with [facility] on 12/02 as above 6. Moderate [...] DMII, HTN, hypothyroidism, HLD, depression admitted to [facility] on 11/01/2024 for hyperglycemia. Patient also found to have new onset atrial fibrillation, metoprolol and apixaban started inpatient. Her urine culture was positive for E.coli was treated with IV ceftriaxone, switched to PO keflex on discharge for 1 more administration to finish a 5 day course. PT/OT recommended SNF on discharge. The patient was then transferred to [facility] for skilled rehab on 11/05. Interval History: [...] patient that I would talk with the child protective services social worker to assist her with this during her stay at [facility]. Hospital Labs: Lab Results Component Value Date [...] expose wisdom teeth THYROGLOSSAL DUCT EXCISION 2000 [facility]- Dr. Vin Keating THYROIDECTOMY UMBILICAL HERNIA REPAIR [...] phrases are mis-transcribed.) documented in this encounter [facility] 11-05-2024 Telephone encounter Note Admitted to [facility]. Orders reviewed. Will see on Sunday. [facility] 11-05-2024 Miscellaneous Notes Admitted to [facility]. Orders reviewed. Will see on Sunday. documented in this encounter [facility] 11-05-2024 Note [facility] 11-05-2024 Nurse Note Gave report to Day at [facility]. [facility] 11-05-2024 Nurse Note Gave report to Day at [facility]. Visual monitor removed from room. Pt has [...] pertinent clinical information. documented in this encounter [facility] 11-05-2024 Plan of care [...] Assess Nutritional Intake Outcome: Adequate for Discharge [facility] 11-05-2024 Miscellaneous Notes Problem: [...] : 1955 All Providers Sent Referral Name: [facility] Phone: [phone] Address: [address] [place] [id number] Name: Danielle Mc [facility] Phone: [phone] Address: [address] [place] [address] Name: [facility] Phone: [phone] Address: [address] [place] [address] Name: [facility] Phone: [phone] Address: [address] [place] [address] Social work follow up on SDOH: housing [...] program- referral made and Nieves made the household personal assistant. [facility] updated on referral being made. Patient is set to discharge to [facility]. Transport arranged in roundtrip via COT for 3 pm leaf size picker with Jose Maria Lainez. Social work did update patient on transport time and possible copay/expense for transport. Social work updated patients niece Nieves via phone on discharge/transport time. Social work also updated SNF in [facility], patients bedside RN and unit. Discharge med list transmitted to SNF - [facility] via [facility] per [facility] request. [id number] completed in [facility] per [facility] request. Facility notified via careport. [facility] tasked to send discharge order, MAR [...] notified. Referral placed to SNF [facility]. [facility] 2. [facility] 3. [facility] 4. [facility] via [facility] per [facility] request. Await review [...] would be able to accept. Pt agreeable. [facility] tasked to send referrals to [facility], [facility], [facility] and [facility]. Problem: Potential for Compromised Skin Integrity [...] met Outcome: Progressing documented in this encounter [facility] 11-05-2024 History of Present illness Narrative Images from the original note were not included. [facility] Geriatric Medicine Inpatient Consult Service Admission [...] 200 mL/hr, IntraVENous, Continuous PRN, Jeremiah Coffman, SHOWROOM EXECUTIVE DIRECTOR dextrose 5 % and sodium chloride 0.45 % infusion, 250 mL/hr, IntraVENous, Continuous PRN, Jeremiah Coffman, SHOWROOM EXECUTIVE DIRECTOR dextrose 5 % infusion, 100 mL/hr, IntraVENous, PRN, Jeremiah Coffman, SHOWROOM EXECUTIVE DIRECTOR dextrose 50 % solution 12.5 g, 12.5 g, IntraVENous, PRN, Jeremiah Tylers, SHOWROOM EXECUTIVE DIRECTOR glucagon (human recombinant) injection 1 mg, 1 mg, IntraMUSCular, PRN, Jeremiah Kolb KEITH Coffman glucose oral gel 15 g, 15 g, Oral, PRN, Jeremiah Lopezvins, SHOWROOM EXECUTIVE DIRECTOR insulin glargine (Lantus) injection 24 Units, 24 [...] mcg, Oral, qAM AC, Jeremiah Kolb Augustus SHOWROOM EXECUTIVE DIRECTOR, 175 mcg at 11/05/24 05 metoprolol tartrate (Lopressor) tablet 50 mg, 50 mg, Oral, BID, Carli Aldrich, INSURANCE CLAIM AUDITOR - OPTICAL ADVISOR, 50 mg at 11/05/24922 nitroglycerin (Nitrostat) SL [...] original note were not included. PHYSICAL THERAPY [facility] Treatment Note Name/MRN: Dameon Potter ([id number]) Date of : 1955 Age: 69 y.o. Room/Bed: W4-423/W4-423 A Discharge Recommendation: [facility] Equipment Needed: No Prior Level of [...] Date: 11/01/2024 PCP: Christ[facility] Rizzo MD [facility] Interval History: Patient is 69-year-old [...] - Pending the following -placement - Location -[facility] Adult diet Regular; No Added Salt (3-4 [...] Extended Emergency Contact Information Primary Emergency Contact: oRe Melendrez Mobile Relation: Mela Secondary Emergency Contact: Jose Potter Mobile Relation: Sibling Leanna Correia MD Division of Hospitalist Medicine [facility] Images from the original note were not included. [facility] Geriatric Medicine Inpatient Consult Service Admission [...] - Recommend outpatient follow up at the [facility] ([place] [facility]) Follow up: 1-2 days [...] mg, 50 mg, Oral, BID, Carli Aldrich, INSURANCE CLAIM AUDITOR - OPTICAL ADVISOR, 50 mg at 11/04/24 0815 nitroglycerin (Nitrostat) [...] allergies, recent labs, several last encounter notes [facility] Cardiology /Electrophysiology Progress Note Primary barrel coater: N/A HPI / Interval History: Dameon Potter is a 69 y.o. female with history of aortic stenosis, asthma, GERD, HLD, HTN, hypothyroidism, RADHA, morbid obesity s/p LRYGB in 2018, and uncontrolled DMII. Echo 02/2024-LVEF 68% with moderate LVH and moderate aortic stenosis with mean gradient 25 mmhg. She was admitted to [facility] 11/02 with 3-4 week history of "not [...] thickness. -TSH normal. Electrolytes stable yesterday, await [facility] today. Hx of moderate aortic [...] alone. Unable to care for self. Received [facility]. Plans for [facility] [place]. Goals of care -Pt follows with palliative [...] primary service arrange f/u with patient's outpatient barrel coater 1-2 wks. [] Recommended; unable to arrange at this time, will arrange post-discharge [x] Arranged as follows: Carli Aldrich, INSURANCE CLAIM AUDITOR - OPTICAL ADVISOR 12/02/24 at 10 AM If there are any questions/concerns, please contact the covering provider. If no answer by Secure Chat, please call the cardiology office to obtain appropriate covering AMPOULE SEALER/physician. Current Medications: apixaban, 5 mg, Oral, BID [...] Pending the following -clinical progress - Location -[facility] Adult diet Regular; No Added Salt (3-4 [...] original note were not included. PHYSICAL THERAPY [facility] Initial Evaluation Name/MRN: Dameon Potter ([id number]) Evaluation Date: 11/03/2024 Date of : 1955 Admission Date: 11/01/2024 4:42 PM Age: 69 y.o. 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/03/2022 Asthma without status asthmaticus 07/05/2022 Candidal vulvovaginitis 07/05/2022 Cardiomegaly 07/05/2022 Diabetic retinopathy associated with type 2 diabetes mellitus ([facility]) 07/05/2022 Diastolic dysfunction 07/05/2022 Malignant neoplasm of uterus ([facility]) 07/05/2022 Malnutrition of mild degree (Bianchi: 75% to less than 90% of standard weight) ([facility]) 07/05/2022 Moderate recurrent major depression ([facility]) 07/05/2022 Polycystic ovaries 07/05/2022 Thyroglossal duct cyst 07/05/2022 Type 2 diabetes mellitus with hyperglycemia ([facility]) 07/05/2022 Postmenopausal bleeding 09/03/2020 Dry eye syndrome [...] of Care supervision is transferred to a [facility] Physical Therapist. Goals and/or treatment plan was established in collaboration with patient/family/other representatives. [facility] [place] [facility] [place] /Electrophysiology Progress Note HPI / Interval History: Dameon Potter is a 69 y.o. female with history of aortic stenosis, asthma, GERD, HLD, HTN, hypothyroidism, RADHA, morbid obesity s/p LRYGB in 2018, and uncontrolled DMII. Echo 02/2024-LVEF 68% with moderate LVH and moderate aortic stenosis with mean gradient 25 mmhg. She was admitted to [facility] 11/02 with 3-4 week history of "not [...] original note were not included. OCCUPATIONAL THERAPY [facility] Initial Evaluation Name/MRN: Dameon Potter ([id number]) Evaluation Date: 11/03/2024 Date of : 1955 Admission Date: 11/01/2024 4:42 PM Age: 69 y.o. Room/Bed: W4-423/W4-423 A Discharge Recommendation: Fpc Facility Other: continue to assess Assessment IMPRESSION: [...] candidiasis 11/01/2023 Chronic rhinitis 11/01/2023 DM retinopathy ([facility]) 11/01/2023 Diastolic heart failure ([facility]) 11/01/2023 HLD (hyperlipidemia) 11/01/2023 RADHA (obstructive sleep apnea) 11/01/2023 Polycystic ovarian syndrome 11/01/2023 Open-angle glaucoma 11/01/2023 Non-pressure chronic ulcer left lower leg, limited to breakdown skin ([facility]) 04/09/2023 Corneal epithelial basement membrane dystrophy 10/03/2022 Asthma without status asthmaticus 07/05/2022 Candidal vulvovaginitis 07/05/2022 Cardiomegaly 07/05/2022 Diabetic retinopathy associated with type 2 diabetes mellitus ([facility]) 07/05/2022 Diastolic dysfunction 07/05/2022 Malignant neoplasm of uterus ([facility]) 07/05/2022 Malnutrition of mild degree (Bianchi: 75% to less than 90% of standard weight) ([facility]) 07/05/2022 Moderate recurrent major depression ([facility]) 07/05/2022 Polycystic ovaries 07/05/2022 Thyroglossal duct cyst 07/05/2022 Type 2 diabetes mellitus with hyperglycemia ([facility]) 07/05/2022 Postmenopausal bleeding 09/03/2020 Dry eye syndrome [...] index greater than 30 10/01/2020 Endometrial cancer ([facility]/H[facility]) ([facility]) 09/30/2020 Zinc deficiency 06/21/2018 Fatigue 06/20/2018 Deficiency of nutrient elements 02/06/2018 Intestinal malabsorption 02/06/2018 Uncontrolled type 2 diabetes mellitus with hyperglycemia, with long-term current use of insulin ([facility]) 01/31/2018 Morbid obesity (HCC) 01/31/2018 Hepatic steatosis [...] Needs Assist Receives Help From: Friend(s) Active Epic Ambulatory Specialists: No Prior Level of Function Prior Level [...] will utilize adaptive techniques to bathe body MN. Start: 11/03/24 Expected End: 12/01/24 Dressing Upper Extremities Patient will complete upper body dressing MN. Start: 11/03/24 Expected End: 12/01/24 Dressings Lower Extremities Patient will dress lower body MN. Start: 11/03/24 Expected End: 12/01/24 Toileting Patient [...] original note were not included. OCCUPATIONAL THERAPY [facility] Name/MRN: Dameon Potter ([id number]) Date: 11/03/2024 OT eval and treat order received. Patient chart reviewed. Patient currently starting bedside ECHO. Will continue to follow. Laura Combs OT Images from the original note were not included. [facility] Geriatric Medicine Inpatient Consult Service [...] Mobile Relation: Niece Secondary Emergency Contact: Jose Pottre [place] Mobile Relation: [place] Guzmán MD Division of Hospitalist Medicine Acute Care [facility] documented in this encounter [facility] 11-05-2024 Note Formatting of this n ote might be different from the original. Patient Choice Patient Name: DAMEON POTTER Date of : 1955 All Providers Sent Referral Name: [facility] Phone: [phone] Address: [address] [place] [address] Name: Danielle Mc [facility] Phone: [phone] Address: [address] [facility] [place] [address] Name: [facility] Phone: [phone] Address: [address] [place] [address] Name: [facility] Phone: [phone] Address: [address] [facility] [place] [address] [facility] 11-05-2024 Note Formatting of this n ote might be different from the original. Patient Choice Patient Name: DAMEON POTTER Date of : 1955 All Providers Sent Referral Name: [facility] Phone: [phone] Address: [address] [place] [address] Name: Danielle Mc [facility] Phone: [phone] Address: [facility] [place] [address] Name: [facility] Phone: [phone] Address: [address] [place] [address] Name: [facility] Phone: [phone] Address: [address] [facility] [place] [address] [facility] 11-05-2024 Note Formatting of this n ote [...] program- referral made and Nieves made the household personal assistant. [facility] updated on referral being made. Patient is set to discharge to [facility]. Transport arranged in roundtrip via COT for 3 pm leaf size picker with Jose Maria Lainez. Social work did update patient on transport time and possible copay/expense for transport. Social work updated patients niece Nieves via phone on discharge/transport time. Social work also updated SNF [facility], patients bedside RN and unit. [facility] 11-05-2024 Note Formatting of [...] program- referral made and Nieves made the household personal assistant. [facility] updated on referral being made. Patient is set to discharge to [facility]. Transport arranged in roundtrip via COT for 3 pm leaf size picker with Jose Maria Lainez. Social work did update patient on transport time and possible copay/expense for transport. Social work updated patients nikong Pickett via phone on discharge/transport time. Social work also updated SNF in [facility], patients bedside RN and unit. [facility] 11-05-2024 Note Formatting of this n ote might be different from the original. Discharge med list [facility]. 7000 completed in [place] per T[facility] request. [facility]. [facility] 11-05-2024 Note Formatting of this n ote might be different from the original. Discharge med list transmitted to [facility] request. 7000 completed in [place] per T[facility] request. [facility]. [facility] 11-05-2024 Note Formatting of this n ote might be different from the original. GROUND SOURCE HEAT PUMP TECHNICIAN tasked to send discharge order, MAR and 7000 to [facility]. [facility] 11-05-2024 Note Formatting of this n ote might be different from the original. GROUND SOURCE HEAT PUMP TECHNICIAN tasked to send discharge order, MAR and 7000 to [facility]. [facility] 11-05-2024 Hospital Discharge instructions Rayne Kerr RN - 11/05/2024 10:45 AM EDT Images from the original note were not included. Continuity of Care Form Patient Name: Dameon Potter DOB: 1955 Admit date: 11/01/2024 Discharge date: 11/05/2024 Code Status Order: Full Code Advance Directives: N Admitting Physician: Wilner Kingston MD PCP: Christy Rizzo MD Discharging Nurse: Rayne LAURA Discharging Hospital Unit/Room#: W8-423/W4423 A Discharging Unit Emergency Contact: Extended Emergency [...] expose wisdom teeth THYROGLOSSAL DUCT EXCISION [address] [facility] Vin Keating THYROIDECTOMY UMBILICAL HERNIA [...] seasonal, injectable, preservative free 05/26/2009, 06/07/2010 Novel [id number], preservative-free 06/10/2009 Pfizer SARS-CoV-2 Vaccination 10/19/2020, 11/11/2020, [...] Problems- [facility] Conversion [facility] Hepatic steatosis Calculus of gallbladder with chronic [...] assistance Toileting Minimal assistance Feeding Minimal assistance Risk Tech Total assistance Med Delivery no Wound Care [...] Status Date: 11/02/24 Discharging to Facility/ Agency [facility] [address], [place] [address] Disaster Recovery Specialist/Packing Supervisor signature: ICIAN SECTION Name: Dameon Potter Prognosis: fair Condition at Discharge: stable Rehab Potential (if transferring to Rehab): fair Recommended Labs or Other Treatments After Discharge: follow up with senior health living at discharge, cbc and bmp in 3 days, follow up with cardiology as scheduled The individual is being admitted to a nursing facility directly from an [facility] or a unit of a hospital that is not operated by or licensed by [facility] under section 5119.14 or 5160-3-15.1 5 The individual requires the level of services provided by a nursing facility for the condition for which he or she was treated in the hospital and, Physician Certification: I certify the above information and transfer of Dameon Potter is necessary for the continuing treatment of the diagnosis listed and that she requires correction facility for less than 30 days. Update Admission H&P: No change in H&P PHYSICIAN SIGNATURE: The following attachments cannot be sent through Care Everywhere.Carb Counting for Adults With Diabetes ([place] Citizen)Diabetes and Diet ([place] Citizen)documented in this encounter [facility] 11-05-2024 Note Formatting of this n ote might be different from the original. [facility] discontinued yesterday at 1pm. [facility] updated an asked if they would have a bed. Geriatrics/ cards following. [facility] 11-05-2024 Note Formatting of this n ote might be different from the original. [facility] discontinued yesterday at 1pm. [facility] updated an asked if they would have a bed. Geriatrics/ cards following. [facility] 11-05-2024 Plan of care note Problem: Knowledge [...] Interventions Goal: Assess Nutritional Intake Outcome: Progressing [facility] 11-04-2024 Nurse Note Visual monitor removed from room. Pt has been free of any events today that would require a monitor [facility] 11-04-2024 Note Formatting of this n ote might be different from the original. [facility] able to accept pt. Ramila liaison talked with pt. She will need to be 24hr free of VM. Provider and nurse notified. [facility] 11-04-2024 Note Formatting of this n ote might be different from the original. [facility] able to accept pt. Ramila liaison talked with pt. She will need to be 24hr free of VM. Provider and nurse notified. [facility] 11-04-2024 Note Formatting of this n ote might be different from the original. Referral placed to SNF 1. [facility] 2. [facility] 3. [facility] 4. [facility] per [facility] request. Await review and response regarding ability to accept. TCC notified. [facility] 11-04-2024 Note Formatting of this n ote might be different from the original. Referral placed to SNF [facility]. [facility]. [facility] 3. [place] 4. [facility] [place] [facility] per TCC request. Await review and response regarding ability to accept. TCC notified. [facility] 11-04-2024 Note Formatting of [...] would be able to accept. Pt agreeable. GROUND SOURCE HEAT PUMP TECHNICIAN tasked to send referrals to [facility] [place], [facility] [place], [place] and [facility]. [facility] 11-04-2024 Note Formatting of [...] would be able to accept. Pt agreeable. GROUND SOURCE HEAT PUMP TECHNICIAN tasked to send referrals to [place], [facility], [facility] and [facility] [place]. [facility] 11-03-2024 Note Problem: Potential f or Compromised Skin Integrity Goal: Nutritional status is improving Outcome: Progressing Problem: Urinary Incontinence Goal: Perineal skin integrity is maintained or improved Outcome: Progressing [facility] 11-03-2024 Plan of care note Problem: Potential for Compromised Skin Integrity Goal: Nutritional status is improving Outcome: Progressing Problem: Urinary Incontinence Goal: Perineal skin integrity is maintained or improved Outcome: Progressing [facility] 11-03-2024 Note Formatting of [...] I would be back to get choices. [facility] 11-03-2024 Note Formatting of [...] I would be back to get choices. [facility] 11-03-2024 Consult note Associated [...] Fluid Accumulation: Mild Extremities (hx severe lymphedema) Timing Inspector Strength: Not Performed Nutrition Assessment: Pt with [...] and mostly lives on prepared meals from [employer] (meals that have meat, veggie, etc and just require to be heated), states she only eats ~1/3 of those meals at a time, for beverages pt used to drink Vitamin Water but states the brand had changed at [place] to something that she tried to drink [...] through what she could order for lunch ([address] also came in and obtained future meal [...] On: Kcal/kg Weight Used for Energy Requirements: [place] Weight for Energy Calculation (kg): 59 kg Total Energy Requirements (kcals/day): 3573-2208 kcal/day (25-30 kcal/kg) Weight Used for Protein Requirements: [place] Weight in Kg Used for Protein Requirements: [...] were 255-269#, in Mar 255# was documented) [place] Body Weight (lbs) (Calculated): 130 lbs [place] Body Weight (Kg) (Calculated): 59 kg % [place] Body Weight (Calculated): 165.3 % BMI (kg/m2) [...] Wanda Beckman RD Contact: Secure chat or *[phone] [facility] 11-03-2024 Consult note Associated [...] Fluid Accumulation: Mild Extremities (hx severe lymphedema) Timing Inspector Strength: Not Performed Nutrition Assessment: Pt with [...] and mostly lives on prepared meals from [employer] (meals that have meat, veggie, etc and just require to be heated), states she only eats ~1/3 of those meals at a time, for beverages pt used to drink Vitamin Water but states the brand had changed at [place] to something that she tried to drink [...] through what she could order for lunch ([address] also came in and obtained future meal [...] On: Kcal/kg Weight Used for Energy Requirements: [place] Weight for Energy Calculation (kg): 59 kg Total Energy Requirements (kcals/day): 5607-3992 kcal/day (25-30 kcal/kg) Weight Used for Protein Requirements: [place] Weight in Kg Used for Protein Requirements: [...] were 255-269#, in Mar 255# was documented) [place] Body Weight (lbs) (Calculated): 130 lbs [place] Body Weight (Kg) (Calculated): 59 kg % [place] Body Weight (Calculated): 165.3 % BMI (kg/m2) [...] Wanda Beckman RD Contact: Secure chat or *[phone] Associated Order(s): IP CONSULT TO GERIATRICS Images from the original note were not included. [facility] Geriatric Medicine Inpatient Consult Service Admission [...] cognitive baseline. - She should follow-up with [facility] as an outpatient. -Appointment information for [facility] included in discharge paperwork. Weight loss -History [...] to tell me that her power of attorney law clerk is her niece, Nieves. States that she [...] go to a facility. Was looking into [facility] for transportation. Has been using "whatever" when she can't find the word that she wants to say. Nieves has noticed some mild memory changes over the past year. She always writes things down so she doesn't forget. She has done this for a long time. She has had some cognitive decline over the past few weeks and admitted that she was forgetting things. [place] that she was losing a lot of [...] Checklist Total Score: 1 Known to the [facility]? No Allergies Allergen Reactions Bimatoprost Other Blurred [...] .looking some additional services. Healthcare Power of Mobile Heavy Equipment Mechanic: Yes. Nieves has copies but the originals are in her house. Alternate POA is her director mba. Living Will: Yes. Originals are in her [...] clarification. Associated Order(s): IP CONSULT TO CARDIOLOGY [facility] [place] Cardiology/Electrophysiology New Patient Consult Note Reason for Consult/Chief Complaint: New onset atrial fibrillation Consulting MD: Dr. Kingston History of Present Illness: Dameon Potter is a 69 y.o. female admitted to [facility] after presenting to the ED with [...] of SERVICE: 11/02/2024 documented in this encounter [facility] 11-03-2024 Consult note Associated Order (s): IP CONSULT TO GERIATRICS Images from the original note were not included. [facility] Geriatric Medicine Inpatient Consult Service Admission [...] cognitive baseline. - She should follow-up with [facility] as an outpatient. -Appointment information for [facility] included in discharge paperwork. Weight loss -History [...] to tell me that her power of attorney law clerk is her niece, Nieves. States that she [...] go to a facility. Was looking into [facility] for transportation. Has been using "whatever" when she can't find the word that she wants to say. Nieves has noticed some mild memory changes over the past year. She always writes things down so she doesn't forget. She has done this for a long time. She has had some cognitive decline over the past few weeks and admitted that she was forgetting things. [place] that she was losing a lot of [...] Checklist Total Score: 1 Known to the [facility]? No Allergies Allergen Reactions Bimatoprost Other Blurred [...] .looking some additional services. Healthcare Power of Mobile Heavy Equipment Mechanic: Yes. Nieves has copies but the originals are in her house. Alternate POA is her director mba. Living Will: Yes. Originals are in her [...] to contact the dictating provider for clarification. [facility] 11-02-2024 Nurse Note Jennifer [...] made aware of all pertinent clinical information. [facility] 11-02-2024 Plan of care [...] My discharge needs are met Outcome: Progressing [facility] 11-02-2024 Consult note Associated Order (s): IP CONSULT TO CARDIOLOGY [facility] [place] Cardiology/Electrophysiology New Patient Consult Note Reason for Consult/Chief Complaint: New onset atrial fibrillation Consulting MD: Dr. Kingston History of Present Illness: Dameon Potter is a 69 y.o. female admitted to [facility] after presenting to the ED with [...] Dominga Martinez MD DATE of SERVICE: 11/02/2024 [facility] 11-02-2024 Emergency department Note Patient awake and alert, IV site intact in the right arm infusing heparin at 9.6units/kg/hr and NS at 75ml/hr. Patient's IV in the LAC removed no longer flushing. [facility] 11-02-2024 Emergency department Note [...] Dove via secure chat Emergency Department Encounter [facility] EMERGENCY DEPT Patient: Dameon Potter : [...] obtain infectious workup along with DKA as cajcj-cu-lzhk glucose was over 450. Please see subsequent [...] couple of days. documented in this encounter [facility] 11-02-2024 Emergency department Note Pt to ultrasound [facility] 11-02-2024 Emergency department Note Next APTT to be drawn at 1013am. [facility] 11-02-2024 Emergency department Note All meds still being verified by pharmacy [facility] 11-02-[address] Darby has been notified of pt's HR of 130s then will drop to >100 after few seconds via secure chat [facility] 11-02-2024 History and physical [...] Continuous Glucose Sensor (FreeStyle Satya 3 Sensor) [facility], 1 Device every 14 (fourteen) days. (Patient [...] - DO NOT do CPR, intubation] [_] [DNR-HRIS SPECIALIST - Comfort care only] [_] DNR form [...] chart review was performed. Wilner Kingston MD CORD:[facility] Work Phone: 11-02-2024 Note CORD:USE [facility] 11-02-2024 History and physical note Attending History [...] infusion, 250 mL/hr, IntraVENous, Continuous PRN, Jarrett Dvoe MD dextrose 5 % infusion, 100 mL/hr, [...] Continuous Glucose Sensor (FreeStyle Satya 3 Sensor) [facility], 1 Device every 14 (fourteen) days. (Patient [...] - DO NOT do CPR, intubation] [_] [DNR-HRIS SPECIALIST - Comfort care only] [_] DNR form [...] Wilner Kingston MD documented in this encounter [facility] 11-01-2024 Emergency department Note Insulin drip and 0.45% sodium chloride infusions stopped per verbal order from . Awaiting BMP results for further orders from . [facility] 11-01-2024 Emergency department Note Provider notified that blood sugar dropped over 100, per order. Awaiting orders to continue protocol or not. [facility] 11-01-2024 Emergency department Note POCT blood sugar 503 [facility] 11-01-2024 Emergency department Note Pt assisted to toilet with wheelchair, stood well on own. Urine sample obtained. RN noted 2 small pressure injuries to buttock with redness surrounded. Pt states she is incontinent and wears briefs at home. [facility] 11-01-2024 Emergency department Note Lab called with blood glucose 617, same reported to Dr. Vu and Dr. Dove via secure chat T [facility] 11-01-2024 Emergency department Triage note Pt arrived for hyperglycemia, confusion and lightheadedness for past couple of days. [facility] 11-01-2024 Physician Emergency department [...] obtain infectious workup along with DKA as [id number] glucose was over 450. Please see subsequent [...] [employer] Oscar Valdes PA-C 11/01/24 [id number] [employer] Phone: 11-01-2024 Telephone encounter Note S: pt calling [facility] with BG problem B: today A: pt [...] is with them with take them to [facility] ER. Reason for Disposition Blood glucose > 500 mg/dL (27.8 mmol/L) Protocols used: Diabetes - High Blood [id number] [facility] Fwd: Power 05-07-2024 History of Present illness Narrative [facility] Nurse Visit Note [...] in this encounter. documented in this encounter [facility] Fwd: Power 05-02-2024 Note Date of Procedure 05/02/2024. Pin Puller Information Cement Finisher Apprentice: preston. Start time: 3:51 PM. Stop time: 3:51 PM. Quality Right Eye Borderline. Left Eye Borderline. NFL Interpretation Right Eye Superior loss, Inferior loss. Left Eye Normal. Ganglion Cell Layer Thickness Right Eye Normal. Left Eye Temporal loss. Interval Change Right Eye Stable. Left Eye Stable. ZEISS 05-02-2024 Note Date of Procedure 05/02/2024. Pin Puller Information Cement Finisher Apprentice: preston. Start time: 3:43 PM. Stop time: 3:51 PM. Interpretation Right Eye Abnormal foveal contour. Findings include Intraretinal fluid. Left Eye Abnormal foveal contour. Findings include Intraretinal fluid. Interval Change Right Eye Worse. Left Eye Stable. ZEISS 05-02-2024 Note HNO ID: [id number] Author: MOSES ACEVEDO MD Service: ? Author Type: Physician Type: Progress Notes Filed: 05/02/2024 16:40 Note Text: Primary care physician visit 03/14/2024 reviewed. (H40.8770) Primary open angle glaucoma of both eyes, [...] eyes done today and reviewed in office. 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 (H40.3281) Primary open angle glaucoma of both eyes, [...] eyes done today and reviewed in office. 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 (Patient [...] insulin pen needle 32G x 4 mm [facility], Use as instructed 2 times daily, Disp: [...] F) (Infrared) Resp 18 Wound : see TRIBE IMPRESSION:Lymphedema (primary encounter diagnosis) Plan: Plan for wound - Treatment: see orders Discussed appropriate home care of this wound. Wound redressed. Patient instructions were given. Follow up: as per protocol documented in this encounter [facility] 04-23-2024 Hospital Discharge instructions [...] the wound center. documented in this encounter [facility] 04-09-2024 History of Present [...] in this encounter. documented in this encounter [facility] Fwd: Power 03-26-2024 History of Present illness Narrative Images from the original note were not included. [facility] [address] [place] [id number] Dept: [phone] Dept Loc: [phone] Visit type: Established patient Reason for Visit: [...] use of insulin -controlled- continue to follow [facility] Dr Ott will request most recent [...] Christy Rizzo MD Referring is PCP Previous In Process Inspector: Dr. Alcantara Initial [facility] endocrinology office visit: 04/06/2021 Last [...] CHOLHDLRATIO 4 04/06/2021 No results found for: "[id number]" Imaging/Testing: AMAURY Higgins CNP Portions of the information within this encounter were entered using an electronic dictation system. Best attempts were made to edit/proofread the information prior to note completion. Despite the review of information, some errors may remain. If there are questions related to the information contained within the note please contact the signing physician directly. 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 No date: Type 2 diabetes mellitus without complication ([facility]/HCC) ([facility]) No date: Urinary tract infection No date: Uterine cancer ([facility]) ([facility]) 05/10/2017: Vitamin D deficiency 06/21/2018: Zinc deficiency [...] Continuous Glucose Sensor (FreeStyle Satya 3 Sensor) [facility], 1 Device every 14 (fourteen) days., Disp: [...] insulin [facility], Use as instructed 2 times daily, Disp: [...] CNP 12:02 PM documented in this encounter [facility] 03-26-2024 Hospital Discharge instructions [...] the wound center. documented in this encounter [facility] 03-18-2024 Telephone encounter Note Scheduled on 03/26 at 3pm - [place] [facility] 03-18-2024 Miscellaneous Notes Scheduled on 03/26 at 3pm - [place] Name of caller: Dameon Contact phone number: [phone] Relationship to Patient: patient Provider: SAMUEL Cruz [place] [facility] Chief Complaint/Reason for Call: Pt states she needs to reschedule her appointment that she had to cancel for 03/19. Pt states she prefers late afternoon appointments. Please review. Best time of day caller can be reached: any Patient advised that office/PCP has 24-48 business hours to return their call: Yes documented in this encounter [facility] 03-17-2024 Telephone encounter Note Name of caller: Dameon Contact phone number: [phone] Relationship to Patient: patient Provider: SAMUEL Cruz Practice[place] [facility] Chief Complaint/Reason for Call: Pt states she needs to reschedule her appointment that she had to cancel for 03/19. Pt states she prefers late afternoon appointments. Please review. Best time of day caller can be reached: any Patient advised that office/PCP has 24-48 business hours to return their call: Yes [facility] 03-12-2024 History of Present illness Narrative [facility] Nurse Visit Note [...] in this encounter. documented in this encounter [facility] 03-04-2024 History of Present [...] dysuria. Has chronic urinary incontinence. Declined Uro planting material remover, will let us know in the future. [...] above noted plan. 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 No date: Type 2 diabetes mellitus without complication ([facility]) ([facility]) No date: Urinary tract infection No date: Uterine cancer ([facility]) ([facility]) 05/10/2017: Vitamin D deficiency 06/21/2018: Zinc deficiency [...] Continuous Glucose Sensor (FreeStyle Satya 3 Sensor) [facility], 1 Device every 14 (fourteen) days., Disp: [...] insulin pen needle 32G x 4 [facility], Use as instructed 2 times daily, Disp: [...] F) (Infrared) Resp 18 Wound : see TRIBE IMPRESSION:Lymphedema (primary encounter diagnosis) Plan: Plan for wound - Treatment: see orders Discussed appropriate home care of this wound. Wound redressed. Patient instructions were given. Follow up: as per protocol documented in this encounter [facility] 02-27-2024 Hospital Discharge instructions [...] the wound center. documented in this encounter [facility] 02-27-2024 Miscellaneous Notes Encounter addended by: Piter Valdez MA on: 02/27/2024 2:30 PM Actions taken: Follow-up modified documented in this encounter [facility] 02-27-2024 Note Encounter addended b y: Ptier Valdez MA on: 02/27/2024 2:30 PM Actions taken: Follow-up modified [facility] 02-27-2024 Note Encounter addended b y: Piter Valdez MA on: 02/27/2024 2:30 PM Actions taken: Follow-up modified [facility] 02-27-2024 Note Encounter addended b y: Piter Valdez MA on: 02/27/2024 2:30 PM Actions taken: Follow-up modified [facility] 02-13-2024 History of Present illness Narrative [facility] Nurse Visit Note [...] in this encounter. documented in this encounter [facility] 01-30-2024 History of Present [...] date: Type 2 diabetes mellitus without complication ([facility]) ([facility]) No date: Urinary tract infection No date: Uterine cancer ([facility]) ([facility]) 05/10/2017: Vitamin D deficiency 06/21/2018: Zinc deficiency [...] Continuous Glucose Sensor (FreeStyle Satya 3 Sensor) [facility], 1 Device every 14 (fourteen) days., Disp: [...] C (98.4 F) Resp 18 Wound See TRIBE IMPRESSION:Lymphedema of both lower extremities (primary encounter diagnosis) Plan: Plan for wound - Treatment: see orders Discussed appropriate home care of this wound. Wound redressed. Patient instructions were given. Follow up: per protocol documented in this encounter [facility] 01-30-2024 Hospital Discharge instructions [...] the wound center. documented in this encounter [facility] 01-17-2024 Telephone encounter Note [...] questions or concerns she can be reached [phone]. [facility] 01-17-2024 Miscellaneous Notes Pt [...] questions or concerns she can be reached [phone]. documented in this encounter [facility] 01-16-2024 History of Present illness Narrative [facility] Nurse Visit Note Dameon Potter AGE: [...] in this encounter. documented in this encounter [facility] 01-16-2024 History of Present illness Narrative [facility] Nurse Visit Note Dameon Potter AGE: [...] in this encounter. documented in this encounter [facility] 01-16-2024 Miscellaneous Notes Encounter addended by: Mackenzie Avitia RN on: 01/18/2024 2:53 PM Actions taken: Episode edited, Charge Capture section accepted documented in this encounter [facility] 01-16-2024 Note Encounter addended b y: Mackenzie Avitia RN on: 01/18/2024 2:53 PM Actions taken: Episode edited, Charge Capture section accepted [facility] 2024 History of Present [...] date: Lymph edema No date: Morbid obesity ([facility]) No date: Obstructive sleep apnea No date: PMB (postmenopausal bleeding) No date: Polycystic ovarian syndrome No date: Psoriasis No date: SOB (shortness of breath) on exertion No date: Thyroglossal duct cyst No date: Type 2 diabetes mellitus without complication ([facility]) ([facility]) No date: Urinary tract infection No date: Uterine cancer ([facility]) ([facility]) 05/10/2017: Vitamin D deficiency 06/21/2018: Zinc deficiency [...] Continuous Glucose Sensor (FreeStyle Satya 3 Sensor) [facility], 1 Device every 14 (fourteen) days., Disp: [...] F) (Infrared) Resp 18 Wound : see TRIBE IMPRESSION:Lymphedema (primary encounter diagnosis) Plan: Plan for wound - Treatment: see orders Discussed appropriate home care of this wound. Wound redressed. Patient instructions were given. Follow up: per protocol documented in this encounter [facility] 2024 Hospital Discharge instructions [...] the wound center. documented in this encounter [facility] 12-31-2023 Telephone encounter Note Called patient niece due to being unable to get a hold of the patient. Patient's niece is her power of attorney law clerk. I did explain that her CT scan looks good radiology informed me that no further biopsy or treatment needs done. Verbalizes understanding. Encouraged to call back with any questions or concerns [facility] 12-31-2023 Miscellaneous Notes Called patient niece due to being unable to get a hold of the patient. Patient's niece is her power of attorney law clerk. I did explain that her CT scan looks good radiology informed me that no further biopsy or treatment needs done. Verbalizes understanding. Encouraged to call back with any questions or concerns documented in this encounter [facility] 12-31-2023 Telephone encounter Note Called patient and attempted to leave a message but her memory box was full. I did speak with radiologist and he did not recommend doing a biopsy on the and inguinal node. I will try and call back. [facility] 12-31-2023 Miscellaneous Notes Called patient and attempted to leave a message but her memory box was full. I did speak with radiologist and he did not recommend doing a biopsy on the and inguinal node. I will try and call back. documented in this encounter [facility] 12-20-2023 History of Present illness Narrative [facility] Nurse Visit Note Dameon Potter AGE: [...] in this encounter. documented in this encounter [facility] 12-19-2023 Telephone encounter Note Pt aware of CT results, aware we are waiting on radiologist to compare both sides of inguinal region to see if she may need US to further assess. Pt verbalized understanding, no further questions. [facility] 12-19-2023 Telephone encounter Note [...] you thought. Thank you, Jaqueline Grayson APRN [facility] 12-19-2023 Miscellaneous Notes Pt [...] Jaqueline Grayson APRN documented in this encounter [facility] 12-05-2023 History of Present [...] Type 2 diabetes mellitus without complication (CMS/HCC) ([facility]) No date: Urinary tract infection No date: Uterine cancer (CMS/HCC) ([facility]) 05/10/2017: Vitamin D deficiency 06/21/2018: Zinc deficiency [...] Continuous Glucose Sensor (FreeStyle Satya 3 Sensor) [facility], 1 Device every 14 (fourteen) days., Disp: [...] 175/74 Pulse 64 Resp 18 Wound See TRIBE IMPRESSION:Lymphedema (primary encounter diagnosis) Plan: Plan for wound - Treatment: see orders Discussed appropriate home care of this wound. Wound redressed. Patient instructions were given. Follow up: as per protocol documented in this encounter [facility] 12-05-2023 Hospital Discharge instructions [...] the wound center. documented in this encounter [facility] 11-21-2023 History of Present illness Narrative [facility] Nurse Visit Note [...] in this encounter. documented in this encounter [facility] 11-21-2023 Hospital Discharge instructions [...] the wound center. documented in this encounter [facility] 11-15-2023 Telephone encounter Note Tried to call patient to let her know about imaging appointment. Unable to leave message, Mailbox is full. [facility] 11-15-2023 Miscellaneous Notes Tried to call patient to let her know about imaging appointment. Unable to leave message, Mailbox is full. documented in this encounter [facility] 11-13-2023 Note Date of Procedure 11/13/2023. Pin Puller Information Cement Finisher Apprentice: Clementine. Start time: 1:43 PM. Stop time: 1:43 PM. Notes Obtained for future comparison [facility] 11-13-2023 Note Date of Procedure 11/13/2023. Pin Puller Information Cement Finisher Apprentice: KAM. Start time: 1:12 PM. Stop time: 1:16 PM. Interpretation Right Eye Findings include Intraretinal fluid; Comments: (Extrafoveal IRF). Left Eye Findings include Intraretinal fluid; Comments: (Extrafoveal IRF). Interval Change Right Eye Stable. Left Eye Stable. [facility] 11-13-2023 Note HNO ID: [id number] Author: MASON JOHNSTON MD Service: ? Author [...] PhD Vitreoretinal Surgery AND Ocular Inflammatory Diseases [facility] 11-13-2023 History of Present illness Narrative HPI: [...] PhD Vitreoretinal Surgery & Ocular Inflammatory Diseases [facility] documented in this encounter [facility] 11-07-2023 History of Present illness Narrative INITIAL [...] Type 2 diabetes mellitus without complication (CMS/HCC) ([facility]) No date: Urinary tract infection No date: Uterine cancer (CMS/HCC) ([facility]) 05/10/2017: Vitamin D deficiency 06/21/2018: Zinc deficiency [...] Continuous Glucose Sensor (FreeStyle Satya 3 Sensor) [facility], 1 Device every 14 (fourteen) days., Disp: [...] F) (Infrared) Resp 18 Wound : see TRIBE IMPRESSION:Lymphedema (primary encounter diagnosis) Plan: Plan for wound - Treatment: see orders Discussed appropriate home care of this wound. Wound redressed. Patient instructions were given. Follow up: as per protocol. documented in this encounter [facility] 11-07-2023 Hospital Discharge instructions [...] the wound center. documented in this encounter [facility] 11-05-2023 Telephone encounter Note Tried to call patient to inform her of ct appointment (12/04/23 @ 1030) at location. Unable to leave message. Mailbox is full. [facility] 11-05-2023 Miscellaneous Notes Tried to call patient to inform her of ct appointment (12/04/23 @ 1030) at location. Unable to leave message. Mailbox is full. documented in this encounter [facility] 11-02-2023 History of Present illness Narrative Images from the original note were not included. [facility] [address] [place] [phone] Dept: [phone] Dept Loc: [phone] Visit type: Established patient Reason for Visit: Diabetes Mellitus, Hyperglycemia, and Follow-up Assessment and Plan 1. Type 2 diabetes mellitus with hyperglycemia, with long-term current use of insulin ([facility]) - AMB POC HEMOGLOBIN A1C 2. Primary hypertension 3. Hyperlipidemia associated with type 2 diabetes mellitus (HCC) ([facility]) 4. Class 3 severe obesity due to excess calories with serious comorbidity and body mass index (BMI) of 45.0 to 49.9 in adult ([facility]) 5. Acquired hypothyroidism 6. Insulin resistance 7. 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 and macular edema, with long-term current use of insulin ([facility]) A1C is Lab Results Component Value Date [...] use of insulin -controlled- continue to follow [facility] Dr Acevedo Continue to work on [...] Christy Rizzo MD Referring is PCP Previous In Process Inspector: [facility] Alcantara [facility]: [facility]21 Last office [...] expose wisdom teeth THYROGLOSSAL DUCT EXCISION [facility]- Dr. Vin Keating THYROIDECTOMY UMBILICAL HERNIA [...] CHOLHDLRATIO 3 03/04/2020 No results found for: "[id number]" Imaging/Testing: Lyric Cruz APRN - SAMUEL Portions of the information within this encounter were entered using an electronic dictation system. Best attempts were made to edit/proofread the information prior to note completion. Despite the review of information, some errors may remain. If there are questions related to the information contained within the note please contact the signing physician directly. documented in this encounter [facility] 11-02-2023 Instructions AMAURY Knight CNP - 11/02/2023 3:30 PM EDT Mookie serna - drug inspector DO NOT USE u500 insulin documented in this encounter [facility] 11-01-2023 History of Present [...] dysuria. Has chronic urinary incontinence. Declined Uro planting material remover, will let us know in the future. [...] above noted plan. documented in this encounter [facility] F[facility]: [facility] 10-26-2023 Note HNO ID: [id number] Author: MOSES ACEVEDO MD Service: ? Author Type: Physician Type: Progress Notes Filed: 10/26/2023 15:12 Note Text: (H44.1488) Primary open angle glaucoma of both eyes, [...] Consider preservative free Artificial tears. Previous History: (E11.5173) Type 2 diabetes mellitus with both eyes [...] Acevedo MD October 26, 2023 3:03 PM [facility] 10-26-2023 History of Present illness Narrative (H40.4711) Primary open angle glaucoma of both eyes, [...] Consider preservative free Artificial tears. Previous History: (E11.0793) Type 2 diabetes mellitus with both eyes [...] 2023 3:03 PM documented in this encounter [facility] 10-24-2023 Hospital Discharge instructions Moses Oliveira - [...] the wound center. documented in this encounter [facility] 10-10-2023 History of Present illness Narrative [facility] Nurse Visit Note [...] in this encounter. documented in this encounter [facility] 10-01-2023 Telephone encounter Note [...] OF LAST REFILL: 05/09/23 PHARMACY REQUESTED: [facility] 10-01-2023 Miscellaneous Notes RX [...] PHARMACY REQUESTED: [facility] documented in this encounter [facility] 09-26-2023 History of Present [...] left lower leg, limited to breakdown skin ([facility]) Review of Systems: General: Fever: Negative Night [...] date: Type 2 diabetes mellitus without complication ([facility]) ([facility]) No date: Urinary tract infection No date: Uterine cancer ([facility]) ([facility]) 05/10/2017: Vitamin D deficiency 06/21/2018: Zinc deficiency [...] as per protocol documented in this encounter [facility] 09-26-2023 Hospital Discharge instructions [...] the wound center. documented in this encounter [facility] 09-13-2023 History of Present illness Narrative [facility] Nurse Visit Note [...] applied per provider's orders with bilateral tubi state archivist Discharge Information: Patient was discharged in stable condition. Ambulatory Status: Walker Discharge Destination: home Transportation: Private Auto Accompanied by: patient Schedule Follow up Appointment: no No orders of the defined types were placed in this encounter. documented in this encounter [facility] 09-11-2023 History of Present illness Narrative RADIATION ONCOLOGY FOLLOW UP PATIENT: Dameon Potter DATE OF SERVICE: 09/11/2023 : 1955 AGE: 68 y.o. 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 MMR proteins intact. STAGE: pT2 NX M0, II HISTORY OF PRESENT ILLNESS: Ms. Potter is a 68-year-old female who presented to her protein purification scientist with postmenopausal bleeding. A D&C was performed [...] cardiac complaints. She continues to follow with MANIPULATOR OPERATOR oncology every 6 months. PAST MEDICAL HISTORY: [...] nontender, nondistended. No hepatosplenomegaly, no suspicious mass. MANIPULATOR OPERATOR: Normal external genitalia. Vaginal vault without mass [...] in 1 year. Ino He MD [facility] Department of Radiation Oncology is an Accredited Facility of the [employer] (ACR). Total time: 25 [...] provider for clarification. documented in this encounter [facility] 09-11-2023 Nurse Note Pt [...] dilators. Pt continues to follow up with planting material remover/onc. Medications and allergies reviewed. Pt set up for pelvic exam. [facility] 09-11-[address] He with pelvic exam. Pt tolerated well. [facility] 09-11-2023 Nurse Note Pt [...] dilators. Pt continues to follow up with planting material remover/onc. Medications and allergies reviewed. Pt set up for pelvic exam. Assisted Dr. He with pelvic exam. Pt tolerated well. documented in this encounter [facility] 08-29-2023 History of Present [...] retinopathy associated with type 2 diabetes mellitus ([facility]) Diastolic dysfunction Dry eye syndrome of bilateral lacrimal glands Malignant neoplasm of uterus ([facility]) Malnutrition of mild degree (Bianchi: 75% to less than 90% of standard weight) ([facility]) Moderate recurrent major depression ([facility]) Nuclear sclerotic cataract, bilateral Polycystic ovaries Posterior subcapsular age-related cataract of left eye Postmenopausal bleeding Primary open angle glaucoma of both eyes, mild stage Refractive error Chronic sinusitis Thyroglossal duct cyst Type 2 diabetes mellitus with hyperglycemia ([facility]) Corneal epithelial basement membrane dystrophy Uncontrolled type 2 diabetes mellitus Non-pressure chronic ulcer left lower leg, limited to breakdown skin ([facility]) Review of Systems: General: Fever: Negative Night [...] date: Type 2 diabetes mellitus without complication ([facility]) ([facility]) No date: Urinary tract infection No date: Uterine cancer ([facility]) ([facility]) 05/10/2017: Vitamin D deficiency 06/21/2018: Zinc deficiency [...] Blood Gluc Sensor (FreeStyle Satya 2 Sensor) [facility], 1 Device every 14 (fourteen) days., Disp: [...] F) (Infrared) Resp 20 Wound : see TRIBE IMPRESSION:Lymphedema (primary encounter diagnosis) Plan: Plan for wound - Treatment: see orders Discussed appropriate home care of this wound. Wound redressed. Patient instructions were given. Follow up: as per protocol documented in this encounter [facility] 08-29-2023 Hospital Discharge instructions [...] the wound center. documented in this encounter [facility] 08-27-2023 Telephone encounter Note Scotty Paez. This patient is part of my research study. 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 Thanks AMAURY Aguilera CNP [facility] 08-27-2023 Miscellaneous Notes Scotty Paez. This patient is part of my research study. 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 Thanks AMAURY Aguilera CNP documented in this encounter [facility] 08-15-2023 History of Present illness Narrative [facility] Nurse Visit Note [...] in this encounter. documented in this encounter [facility] 08-01-2023 History of Present [...] to less than 90% of standard weight) ([facility]) Moderate recurrent major depression ([facility]) Nuclear sclerotic cataract, bilateral Polycystic ovaries Posterior subcapsular age-related cataract of left eye Postmenopausal bleeding Primary open angle glaucoma of both eyes, mild stage Refractive error Chronic sinusitis Thyroglossal duct cyst Type 2 diabetes mellitus with hyperglycemia ([facility]) Corneal epithelial basement membrane dystrophy Uncontrolled type 2 diabetes mellitus Non-pressure chronic ulcer left lower leg, limited to breakdown skin ([facility]) Review of Systems: General: Fever: Negative Night [...] Blood Gluc Sensor (FreeStyle Satya 2 Sensor) [facility], 1 Device every 14 (fourteen) days., Disp: [...] F) (Infrared) Resp 18 Wound : see TRIBE IMPRESSION:Lymphedema (primary encounter diagnosis) Plan: Plan for wound - Treatment: see orders. Discussed appropriate home care of this wound. Wound redressed. Patient instructions were given. Follow up: as per plan documented in this encounter [facility] 08-01-2023 Hospital Discharge instructions [...] the wound center. documented in this encounter [facility] 07-18-2023 History of Present illness Narrative [facility] Nurse Visit Note [...] in this encounter. documented in this encounter [facility] 07-04-2023 History of Present illness Narrative [facility] Nurse Visit Note [...] in this encounter. documented in this encounter [facility] 06-20-2023 History of Present [...] retinopathy associated with type 2 diabetes mellitus ([facility]) Diastolic dysfunction Dry eye syndrome of bilateral lacrimal glands Malignant neoplasm of uterus ([facility]) Malnutrition of mild degree ([place]ianchi: 75% to less than 90% of standard weight) ([facility]) Moderate recurrent major depression ([facility]) Nuclear sclerotic cataract, bilateral Polycystic ovaries Posterior subcapsular age-related cataract of left eye Postmenopausal bleeding Primary open angle glaucoma of both eyes, mild stage Refractive error Chronic sinusitis Thyroglossal duct cyst Type 2 diabetes mellitus with hyperglycemia ([facility]) Corneal epithelial basement membrane dystrophy Uncontrolled type 2 diabetes mellitus Non-pressure chronic ulcer left lower leg, limited to breakdown skin ([facility]) Review of Systems: General: Fever: Negative Night [...] date: Lymph edema No date: Morbid obesity ([facility]) No date: Obstructive sleep apnea No date: PMB (postmenopausal bleeding) No date: Polycystic ovarian syndrome No date: Psoriasis No date: SOB (shortness of breath) on exertion No date: Thyroglossal duct cyst No date: Type 2 diabetes mellitus without complication ([facility]) ([facility]) No date: Urinary tract infection No date: Uterine cancer ([facility]) ([facility]) 05/10/2017: Vitamin D deficiency 06/21/2018: Zinc deficiency [...] as per protocol documented in this encounter [facility] 06-20-2023 Hospital Discharge instructions [...] the wound center. documented in this encounter [facility] 06-06-2023 History of Present illness Narrative Images from the original note were not included. [facility] Nurse Visit Note [...] in this encounter. documented in this encounter [facility] 05-23-2023 History of Present [...] retinopathy associated with type 2 diabetes mellitus ([facility]) Diastolic dysfunction Dry eye syndrome of bilateral lacrimal glands Malignant neoplasm of uterus ([facility]) Malnutrition of mild degree (Bianchi: 75% to less than 90% of standard weight) ([facility]) Moderate recurrent major depression ([facility]) Nuclear sclerotic cataract, bilateral Polycystic ovaries Posterior subcapsular age-related cataract of left eye Postmenopausal bleeding Primary open angle glaucoma of both eyes, mild stage Refractive error Chronic sinusitis Thyroglossal duct cyst Type 2 diabetes mellitus with hyperglycemia ([facility]) Corneal epithelial basement membrane dystrophy Uncontrolled type 2 diabetes mellitus Non-pressure chronic ulcer left lower leg, limited to breakdown skin ([facility]) Review of Systems: General: Fever: Negative Night [...] wisdom teeth 2000: THYROGLOSSAL DUCT EXCISION Comment: [facility]- Dr. Vin Keating No date: THYROIDECTOMY 01/29/2018: [...] date: Type 2 diabetes mellitus without complication ([facility]) ([facility]) No date: Urinary tract infection No date: Uterine cancer ([facility]) ([facility]) 05/10/2017: Vitamin D deficiency 06/21/2018: Zinc deficiency [...] Blood Gluc Sensor (FreeStyle Satya 2 Sensor) [facility], 1 Device every 14 (fourteen) days., Disp: [...] (98.9 F) Resp 18 Wound : see TRIBE IMPRESSION:Lymphedema (primary encounter diagnosis) Plan: Plan for wound - Treatment: see orders Discussed appropriate home care of this wound. Wound redressed. Patient instructions were given. Follow up: as per protocol documented in this encounter [facility] 05-23-2023 Hospital Discharge instructions [...] the wound center. documented in this encounter [facility] 05-11-2023 Telephone encounter Note I'll forward to gordon from [employer] to see if we can get an order placed for satya 2 reader/sensors. Thank you! Once she receives these items, we can assist with getting her scheduled for a nurse visit. [facility] 05-11-2023 Miscellaneous Notes I'll forward to gordon from [employer] to see if we can get an [...] covered and taught documented in this encounter [facility] 05-09-2023 Telephone encounter Note Had cgm prescribed before but did not learn to use and then was told from sg that it may be defective -please see if can get it re-prescribed, covered and taught [facility] 05-09-2023 Miscellaneous Notes Had cgm prescribed before but did not learn to use and then was told from sg that it may be defective -please see if can get it re-prescribed, covered and taught documented in this encounter [facility] 05-09-2023 History of Present illness Narrative . ENDOCRINOLOGY [address] [facility] [address] Dept: [phone] Dept Visit type: Established patient Reason for [...] expose wisdom teeth THYROGLOSSAL DUCT EXCISION [address] [facility]- [address] Vin Keating THYROIDECTOMY UMBILICAL HERNIA [...] 07/31/2019 13.9 11.7 - 16.0 g/dL Final [facility] MEAN CORPUSCULAR VOLUME Date Value Ref [...] 06/22/2021 50 35 - 70 mg/dL Final [facility] VITAMIN D 25-HYDROXY Date Value Ref Range Status 04/06/2021 22 (L) 30 - 100 ng/mL Final Comment: Therapy is based on measurement of Total 25-OHD with the following classification levels: Less than 20 ng/mL: Indicative of Vit D deficiency 20-30 ng/mL: Suggests Vit D insufficiency Optimal: Greater than or equal to 30 ng/mL Test performed by [employer] Immunoassay, measuring Total Vitamin D, not individual fractions. HEMOGLOBIN A1C Date Value Ref Range Status 03/03/2022 11.2 % Final Hemoglobin A1C Date Value Ref Range Status 05/09/2023 10.2 (A) 5.7 % Final Imaging/Testing: Bridget Alcantara MD documented in this encounter [facility] 05-08-2023 History of Present illness Narrative Images from the original note were not included. [facility] Nurse Visit Note [...] in this encounter. documented in this encounter [facility] 04-25-2023 History of Present [...] date: Lymph edema No date: Morbid obesity ([facility]) No date: Obstructive sleep apnea No date: PMB (postmenopausal bleeding) No date: Polycystic ovarian syndrome No date: Psoriasis No date: SOB (shortness of breath) on exertion No date: Thyroglossal duct cyst No date: Type 2 diabetes mellitus without complication ([facility]) ([facility]) No date: Urinary tract infection No date: Uterine cancer ([facility]) ([facility]) 05/10/2017: Vitamin D deficiency 06/21/2018: Zinc deficiency [...] Blood Gluc Sensor (FreeStyle Satya 2 Sensor) [facility], 1 Device every 14 (fourteen) days., Disp: [...] (96.8 F) Resp 20 Wound : see TRIBE IMPRESSION:Lymphedema (primary encounter diagnosis) Plan: Plan for wound - Treatment: see orders Discussed appropriate home care of this wound. Wound redressed. Patient instructions were given. Follow up: as per protocol documented in this encounter [facility] 04-25-2023 Hospital Discharge instructions [...] the wound center. documented in this encounter [facility] 04-17-2023 History of Present illness Narrative Images from the original note were not included. [facility] Nurse Visit Note [...] in this encounter. documented in this encounter [facility] 04-11-2023 History of Present [...] retinopathy associated with type 2 diabetes mellitus ([facility]) Diastolic dysfunction Dry eye syndrome of bilateral lacrimal glands Malignant neoplasm of uterus ([facility]) Malnutrition of mild degree (Bianchi: 75% to less than 90% of standard weight) ([facility]) Moderate recurrent major depression ([facility]) Nuclear sclerotic cataract, bilateral Polycystic ovaries Posterior subcapsular age-related cataract of left eye Postmenopausal bleeding Primary open angle glaucoma of both eyes, mild stage Refractive error Chronic sinusitis Thyroglossal duct cyst Type 2 diabetes mellitus with hyperglycemia (CMS/HCC) ([facility]) Corneal epithelial basement membrane dystrophy Uncontrolled type 2 diabetes mellitus Non-pressure chronic ulcer left lower leg, limited to breakdown skin ([facility]) Review of Systems: General: Fever: Negative Night [...] date: Lymph edema No date: Morbid obesity ([facility]) No date: Obstructive sleep apnea No date: PMB (postmenopausal bleeding) No date: Polycystic ovarian syndrome No date: Psoriasis No date: SOB (shortness of breath) on exertion No date: Thyroglossal duct cyst No date: Type 2 diabetes mellitus without complication ([facility]) ([facility]) No date: Urinary tract infection No date: Uterine cancer ([facility]) ([facility]) 05/10/2017: Vitamin D deficiency 06/21/2018: Zinc deficiency [...] F) (Temporal) Resp 16 Wound : see TRIBE IMPRESSION:Non-pressure chronic ulcer left lower leg, 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) (primary encounter diagnosis) Plan: Plan for wound - Treatment: see orders Discussed appropriate home care of this wound. Wound redressed. Patient instructions were given. Follow up: 1 wk documented in this encounter [facility] 04-11-2023 Hospital Discharge instructions [...] profore for padding. documented in this encounter [facility] 04-10-2023 History of Present illness Narrative (H40.1061) Primary open angle glaucoma of both eyes, [...] nerve both eyes done today and reviewed. (E11.4361) 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 and macular edema, without long-term current use of insulin ([facility]) Comment: Discussed retinopathy both eyes with diabetic [...] 2023 4:48 PM documented in this encounter [facility] 04-09-2023 History of Present illness Narrative Pt. [...] treatment: tolerated well documented in this encounter [facility] 04-09-2023 History of Present [...] treatment: tolerated well documented in this encounter [facility] 04-09-2023 Hospital Discharge instructions [...] profore for padding. documented in this encounter [facility] 04-09-2023 Hospital Discharge instructions [...] profore for padding. documented in this encounter [facility] 04-09-2023 Miscellaneous Notes Encounter addended by: Mackenzie Avitia RN on: 04/12/2023 10:07 AM Actions taken: Visit diagnoses modified documented in this encounter [facility] 04-09-2023 Note Encounter addended b y: Mackenzie Avitia RN on: 04/12/2023 10:07 AM Actions taken: Visit diagnoses modified [facility] 03-28-2023 History of Present illness Narrative [facility] Nurse Visit Note [...] in this encounter. documented in this encounter [facility] 03-28-2023 Hospital Discharge instructions [...] the wound center. documented in this encounter [facility] 03-23-2023 History of Present illness Narrative [facility] ENDOCR[facility]OLOGY [address] [place] [address] Dept: [phone] Dept Visit Date: 03/23/2023 Individual DSME Appointment [...] work hours: Language: english___ List cultural or orthodox beliefs that may impact your care: __none __ Last grade completed? Can you read/write [place] Citizen? [x] Yes [] No Learning Barriers: [] [...] A1C target? [] Do you see a Fishing Guide? Last visit date: Taking Medications and Health [...] and previous workup. documented in this encounter [facility] 03-14-2023 History of Present [...] standard weight) (HCC) Moderate recurrent major depression ([facility]) Nuclear sclerotic cataract, bilateral Polycystic ovaries Posterior subcapsular age-related cataract of left eye Postmenopausal bleeding Primary open angle glaucoma of both eyes, mild stage Refractive error Chronic sinusitis Thyroglossal duct cyst Type 2 diabetes mellitus with hyperglycemia (CMS/HCC) ([facility]) Corneal epithelial basement membrane dystrophy Uncontrolled type [...] date: Type 2 diabetes mellitus without complication ([facility]) ([facility]) No date: Urinary tract infection No date: Uterine cancer ([facility]) ([facility]) 05/10/2017: Vitamin D deficiency 06/21/2018: Zinc deficiency [...] F) (Infrared) Resp 20 Wound : see TRIBE IMPRESSION:Lymphedema (primary encounter diagnosis) Plan: Plan for wound - Treatment: see orders Discussed appropriate home care of this wound. Wound redressed. Patient instructions were given. Follow up: as planned documented in this encounter [facility] 03-14-2023 Hospital Discharge instructions [...] the wound center. documented in this encounter [facility] 03-02-2023 History of Present illness Narrative RADIATION ONCOLOGY FOLLOW UP PATIENT: Dameon Potter DATE OF SERVICE: 03/02/2023 : 1955 AGE: 68 y.o. 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 MMR proteins intact. STAGE: pT2 NX M0, II HISTORY OF PRESENT ILLNESS: Ms. Potter is a 68-year-old female who presented to her protein purification scientist with postmenopausal bleeding. A D&C was performed [...] health issues. She continues to follow with MANIPULATOR OPERATOR oncology every 6 months and is scheduled [...] expose wisdom teeth THYROGLOSSAL DUCT EXCISION 2000 [facility]- Dr. Vin Keating THYROIDECTOMY UMBILICAL HERNIA [...] nontender, nondistended. No hepatosplenomegaly, no suspicious mass. MANIPULATOR OPERATOR: Normal external genitalia. Vaginal vault without mass [...] with her multiple physicians. Scheduled to see MANIPULATOR OPERATOR oncology in April. PLAN: Return in 6 months. Ino He MD [facility] Department of Radiation Oncology is an Accredited Facility of the [employer] (ACR). Total time: 25 [...] provider for clarification. documented in this encounter [facility] 03-02-2023 Nurse Note Here alone for follow up with Dr. He. Reports good appetite and energy; uses wheeled walker for ambulation. Denies any vaginal discharge/bleeding, urinary or bowel issues but does have occasional diarrhea. Medications reviewed. [facility] 03-02-2023 Nurse Note Pt prepped for pelvic exam. This nurse assisted Dr. He with exam. [facility] 03-02-2023 Nurse Note Here alone for follow up with Dr. He. Reports good appetite and energy; uses wheeled walker for ambulation. Denies any vaginal discharge/bleeding, urinary or bowel issues but does have occasional diarrhea. Medications reviewed. Pt prepped for pelvic exam. This nurse assisted Dr. He with exam. documented in this encounter [facility] 02-28-2023 History of Present illness Narrative [facility] Nurse Visit Note [...] in this encounter. documented in this encounter [facility] 02-14-2023 History of Present [...] date: Type 2 diabetes mellitus without complication ([facility]) ([facility]) No date: Urinary tract infection No date: Uterine cancer ([facility]) ([facility]) 05/10/2017: Vitamin D deficiency 06/21/2018: Zinc deficiency [...] Blood Gluc Sensor (FreeStyle Satya 2 Sensor) [facility], 1 Device every 14 (fourteen) days., Disp: [...] up: as planned documented in this encounter [facility] 02-14-2023 Hospital Discharge instructions [...] the wound center. documented in this encounter [facility] 01-31-2023 History of Present illness Narrative [facility] Nurse Visit Note [...] in this encounter. documented in this encounter [facility] 01-31-2023 Miscellaneous Notes Encounter addended by: Mackenzie Avitia RN on: 01/31/2023 4:10 PM Actions taken: Episode edited documented in this encounter [facility] 01-31-2023 Note Encounter addended b y: Mackenzie Avitia RN on: 01/31/2023 4:10 PM Actions taken: Episode edited [facility] 01-31-2023 Note Encounter addended b y: Mackenzie Avitia RN on: 01/31/2023 4:10 PM Actions taken: Episode edited [facility] 01-31-2023 Note Encounter addended b y: Mackenzie Avitia RN on: 01/31/2023 4:10 PM Actions taken: Episode edited [facility] 01-19-2023 History of Present illness Narrative Images from the original note were not included. [address] [place] [id number] Dept: [phone] Dept Loc: [phone] Visit type: Established patient Reason for Visit: Diabetes, Follow-up, and Hyperglycemia Assessment and Plan 1. Type 2 diabetes mellitus with hyperglycemia, with long-term current use of insulin ([facility]/HCC) ([facility]) - AMB POC HEMOGLOBIN A1C 2. 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 without macular edema, with long-term current use of insulin ([facility]) 3. Primary hypertension 4. Hyperlipidemia associated with type 2 diabetes mellitus ([facility]) 5. Class 3 severe obesity due to excess calories with serious comorbidity and body mass index (BMI) of 45.0 to 49.9 in adult ([facility]) 6. Acquired hypothyroidism 7. Insulin resistance Diabetes [...] use of insulin -controlled- continue to follow [facility] Dr Acevedo Continue to work on [...] Christy Rizzo MD Referring is PCP Previous In Process Inspector: Dr. Alcantara Initial [facility] endocrinology office visit: 04/06/2021 Last [...] that tsering is not covered Did not leaf size picker the lantus Pt c/o sxs at [...] Blood Gluc Sensor (FreeStyle Satya 2 Sensor) [facility] 1 Device every 14 (fourteen) days. 9 [...] 0 pen needle 31G x 6 mm [facility] Use as instructed 100 each 12 brimonidine [...] expose wisdom teeth THYROGLOSSAL DUCT EXCISION 2000 [facility]- Dr. Vin Keaitng THYROIDECTOMY UMBILICAL HERNIA REPAIR 01/29/2018 w/ LRYGB [...] CHOLHDLRATIO 3 03/04/2020 No results found for: [id number] Imaging/Testing: Lyric Cruz APRN - OPTICAL ADVISOR Portions of the information within this encounter were entered using an electronic dictation system. Best attempts were made to edit/proofread the information prior to note completion. Despite the review of information, some errors may remain. If there are questions related to the information contained within the note please contact the signing physician directly. documented in this encounter [facility] 01-17-2023 History of Present [...] hyperglycemia, with long-term current use of insulin ([facility]) Deficiency of nutrient elements Zinc deficiency Lymphedema [...] to less than 90% of standard weight) ([facility]) Moderate recurrent major depression ([facility]) Nuclear sclerotic cataract, bilateral Polycystic ovaries Posterior [...] Type 2 diabetes mellitus without complication (CMS/HCC) ([facility]) No date: Urinary tract infection No date: Uterine cancer (CMS/HCC) ([facility]) 05/10/2017: Vitamin D deficiency 06/21/2018: Zinc deficiency [...] Blood Gluc Sensor (FreeStyle Satya 2 Sensor) [facility], 1 Device every 14 (fourteen) days., Disp: [...] Rfl: pen needle 31G x 6 mm [facility], Use as instructed, Disp: 100 each, Rfl: [...] 36.1 C (97 F) Wound : see TRIBE IMPRESSION:Lymphedema (primary encounter diagnosis) Plan: Plan for wound - Treatment: see orders Discussed appropriate home care of this wound. Wound redressed. Patient instructions were given. Follow up: as per plan documented in this encounter [facility] 01-17-2023 Hospital Discharge instructions [...] the wound center. documented in this encounter [facility] 01-03-2023 History of Present illness Narrative [facility] Nurse Visit Note [...] in this encounter. documented in this encounter [facility] 01-03-2023 History of Present illness Narrative [facility] Nurse Visit Note [...] in this encounter. documented in this encounter [facility] 12-20-2022 History of Present [...] Type 2 diabetes mellitus without complication (CMS/HCC) ([facility]) No date: Urinary tract infection No date: Uterine cancer (CMS/HCC) ([facility]) 05/10/2017: Vitamin D deficiency 06/21/2018: Zinc deficiency [...] Blood Gluc Sensor (FreeStyle Satya 2 Sensor) [facility], 1 Device every 14 (fourteen) days., Disp: [...] up: as planned documented in this encounter [facility] 12-20-2022 Hospital Discharge instructions [...] the wound center. documented in this encounter [facility] 11-24-2022 History of Present illness Narrative [facility] Nurse Visit Note [...] in this encounter. documented in this encounter [facility] 11-22-2022 History of Present [...] date: Lymph edema No date: Morbid obesity ([facility]) ([facility]) No date: Obstructive sleep apnea No date: PMB (postmenopausal bleeding) No date: Polycystic ovarian syndrome No date: Psoriasis No date: SOB (shortness of breath) on exertion No date: Thyroglossal duct cyst No date: Type 2 diabetes mellitus without complication ([facility]) ([facility]) No date: Urinary tract infection No date: Uterine cancer ([facility]) ([facility]) 05/10/2017: Vitamin D deficiency 06/21/2018: Zinc deficiency [...] Blood Gluc Sensor (FreeStyle Satya 2 Sensor) [facility], 1 Device every 14 (fourteen) days., Disp: [...] Rfl: pen needle 31G x 6 mm [facility], Use as instructed, Disp: 100 each, Rfl: [...] Escobar CNP 11/22/22 documented in this encounter [facility] 11-03-2022 History of Present illness Narrative @LOGOIMAGE@ [...] (HCC) Urinary tract infection Uterine cancer (CMS/HCC) ([facility]) Vitamin D deficiency 05/10/2017 Zinc deficiency 06/21/2018 [...] expose wisdom teeth THYROGLOSSAL DUCT EXCISION 2000 [facility]- Dr. Vin eKating THYROIDECTOMY UMBILICAL HERNIA REPAIR 01/29/2018 w/ LRYGB [...] coordination of care. documented in this encounter [facility] 10-25-2022 History of Present [...] date: Lymph edema No date: Morbid obesity ([facility]) ([facility]) No date: Obstructive sleep apnea No date: PMB (postmenopausal bleeding) No date: Polycystic ovarian syndrome No date: Psoriasis No date: SOB (shortness of breath) on exertion No date: Thyroglossal duct cyst No date: Type 2 diabetes mellitus without complication ([facility]) ([facility]) No date: Urinary tract infection No date: Uterine cancer ([facility]) ([facility]) 05/10/2017: Vitamin D deficiency 06/21/2018: Zinc deficiency [...] Blood Gluc Sensor (FreeStyle Satya 2 Sensor) [facility], 1 Device every 14 (fourteen) days., Disp: [...] Rfl: [facility], Use as instructed, Disp: 100 each, Rfl: [...] up: per plan documented in this encounter [facility] 10-25-2022 Hospital Discharge instructions [...] the wound center. documented in this encounter [facility] 10-06-2022 Telephone encounter Note Please see if patient qualifies for assistance for ozempic he is will to fill scripts with [facility] 10-06-2022 Miscellaneous Notes Please see if patient qualifies for assistance for ozempic he is will to fill scripts with [facility] Faxed request for lab results to [phone] Kristal, can you please call patient's pcp, Dr Mendez office ([phone]) on Sunday and have her lab results from couple weeks ago faxed to Lisa? I called office, they are closed. Lisa is requesting results. Thank you! documented in this encounter [facility] 10-06-2022 Telephone encounter Note Faxed request for lab results to [phone] [facility] 10-06-2022 Telephone encounter Note Kristal, can you please call patient's pcp, Dr Mendez office ([phone]) on Sunday and have her lab results from couple weeks ago faxed to Lisa? I called office, they are closed. Lisa is requesting results. Thank you! [facility] 09-27-2022 History of Present [...] Patient Active Problem List: Endometrial cancer (CMS/HCC) ([facility]) Obesity with body mass index greater than 30 OAB (overactive bladder) Uncontrolled type 2 diabetes mellitus with hyperglycemia, with long-term current use of insulin ([facility]) Deficiency of nutrient elements Zinc deficiency Lymphedema Hepatic steatosis Calculus of gallbladder with chronic cholecystitis without obstruction Vitamin D deficiency Intestinal malabsorption Morbid obesity (CMS/HCC) ([facility]) Hypothyroidism Essential hypertension, benign Mixed hyperlipidemia Fatigue Obstructive sleep apnea SOB (shortness of breath) on exertion Gastritis without bleeding PND (post-nasal drip) Gastroesophageal reflux disease without esophagitis Asthma without status asthmaticus Candidal vulvovaginitis Cardiomegaly Cortical cataract of both eyes Diabetic retinopathy associated with type 2 diabetes mellitus (CMS/HCC) ([facility]) Diastolic dysfunction Dry eye syndrome of bilateral lacrimal glands Malignant neoplasm of uterus ([facility]) Malnutrition of mild degree ([place]: 75% to less than 90% of standard weight) ([facility]) Moderate recurrent major depression ([facility]) Nuclear sclerotic cataract, bilateral Polycystic ovaries Posterior subcapsular age-related cataract of left eye Postmenopausal bleeding Primary open angle glaucoma of both eyes, mild stage Refractive error Chronic sinusitis Thyroglossal duct cyst Type 2 diabetes mellitus with hyperglycemia (CMS/HCC) ([facility]) Review of Systems: General: Fever: Negative Night [...] date: Lymph edema No date: Morbid obesity ([facility]) ([facility]) No date: Obstructive sleep apnea No date: PMB (postmenopausal bleeding) No date: Polycystic ovarian syndrome No date: Psoriasis No date: SOB (shortness of breath) on exertion No date: Thyroglossal duct cyst No date: Type 2 diabetes mellitus without complication ([facility]) ([facility]) No date: Urinary tract infection No date: Uterine cancer ([facility]) ([facility]) 05/10/2017: Vitamin D deficiency 06/21/2018: Zinc deficiency [...] every few wks documented in this encounter [facility] 09-27-2022 Hospital Discharge instructions [...] the wound center. documented in this encounter [facility] 09-13-2022 History of Present illness Narrative RADIATION ONCOLOGY FOLLOW UP PATIENT: Dameon Potter DATE OF SERVICE: 09/13/2022 : 1955 AGE: 67 y.o. 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 MMR proteins intact. STAGE: pT2 NX M0, II HISTORY OF PRESENT ILLNESS: Ms. 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 A D&C was performed [...] follow-up. She continues to follow with her hardware sales assistant for the diabetes and MANIPULATOR OPERATOR oncology along with wound care who she saw today. She continues to do the leg wraps. She still has a periodic yeast infections. She has intermittent diarrhea and urinary incontinence. She uses Imodium as needed. She was recently treated for a yeast infection after noticing some pinkish vaginal drainage. No further drainage. She is scheduled to see MANIPULATOR OPERATOR oncology again in October. No new respiratory [...] expose wisdom teeth THYROGLOSSAL DUCT EXCISION 2000 [facility]- Dr. Vin Keating THYROIDECTOMY UMBILICAL HERNIA [...] nontender, nondistended. No hepatosplenomegaly, no suspicious mass. MANIPULATOR OPERATOR: Normal external genitalia. Vaginal vault without mass [...] The patient continues to work with her hardware sales assistant for management of the diabetes. She knows that if this is under control that the yeast infections will probably decrease. She is trying to eat healthy and stay hydrated. Clinically there is no sign of recurrence. PLAN: Return to office in 6 months. Ino He MD [facility] Department of Radiation Oncology is an Accredited Facility of the [employer] (A[employer]). Total time: 25 [...] provider for clarification. documented in this encounter [facility] 09-13-2022 Nurse Note Pt [...] He with pelvic exam. Pt tolerated well. [facility] 09-13-2022 Nurse Note Pt [...] Pt tolerated well. documented in this encounter [facility] 08-30-2022 History of Present [...] to less than 90% of standard weight) ([facility]) Moderate recurrent major depression (HCC) Nuclear sclerotic [...] expose wisdom teeth THYROGLOSSAL DUCT EXCISION 2000 [facility]- Dr. Vin Keating THYROIDECTOMY UMBILICAL HERNIA REPAIR 01/29/2018 w/ LRYGB and Lap [facility] - [facility] UPPER GASTROINTESTINAL ENDOSCOPY 03/20/2017 pre op, [facility] WISDOM TOOTH EXTRACTION 2013 [facility] Past Medical History: Diagnosis Date Anxiety Asthma Deficiency of nutrient elements Depression Dry eye Fatigue Gastritis GERD (gastroesophageal reflux disease) Glaucoma Glaucoma Hyperlipidemia Hypertension Hypothyroid Hypothyroidism Incontinence Intestinal malabsorption Lymph edema Morbid obesity ([facility]) (HCC) Obstructive sleep apnea PMB (postmenopausal bleeding) Polycystic ovarian syndrome Psoriasis SOB (shortness of breath) on exertion Thyroglossal duct cyst Type 2 diabetes mellitus without complication (CMS/[facility]) (HCC) Urinary tract infection Uterine cancer ([facility]) ([facility]) Vitamin D deficiency 05/10/2017 Zinc deficiency 06/21/2018 [...] hours. pen needle 31G x 6 mm [facility] Use as instructed 100 each 12 triamcinolone [...] up: 1 week. documented in this encounter [facility] 08-30-2022 Hospital Discharge instructions [...] to both legs documented in this encounter [facility] 08-02-2022 History of Present [...] to less than 90% of standard weight) ([facility]) Moderate recurrent major depression (HCC) Nuclear sclerotic cataract, bilateral Polycystic ovaries Posterior subcapsular age-related cataract of left eye Postmenopausal bleeding Primary open angle glaucoma of both eyes, mild stage Refractive error Chronic sinusitis Thyroglossal duct cyst Type 2 diabetes mellitus with hyperglycemia (CMS/HCC) ([facility]) Review of Systems: General: Fever: Negative Night Sweats: Negative Eye: Blurry Vision:Negative Double Vision: Negative Ent: Headaches: Negative Sore throat: Negative Allergy/Immunology: Hives: Negative Hematology/Lymphatic: Bleeding Problems: Negative Blood Clots: Negative Swollen Lymph Nodes: Negative Lungs: Cough: Negative SOB: Negative Cardiovascular: Chest Pain: Negative Palpitations:Negative GI: Nausea/Vomiting: Negative Abdominal Pain: Negative Change in Bowels:{Pos/neg for:27501) : Dysuria: Negative Increase Urinary Frequency/Urgency: Negative [...] Incontinence Intestinal malabsorption Lymph edema Morbid obesity (CMS/[facility]) ([facility]) Obstructive sleep apnea PMB (postmenopausal bleeding) Polycystic ovarian syndrome Psoriasis SOB (shortness of breath) on exertion Thyroglossal duct cyst Type 2 diabetes mellitus without complication (CMS/HCC) ([facility]) Urinary tract infection Uterine cancer ([facility]) ([facility]) Vitamin D deficiency 05/10/2017 Zinc deficiency 06/21/2018 [...] up: 1 week. documented in this encounter [facility] 08-02-2022 Hospital Discharge instructions [...] to both legs documented in this encounter [facility] 08-01-2022 Telephone encounter Note I just checked the notes are sighed I just printed them in the MA room for you [facility] 08-01-2022 Miscellaneous Notes I just checked the notes are sighed I just printed them in the MA room for you Name of caller: Gordon Contact phone number: [phone] Relationship to Patient: [employer] Provider: Anthony Practice: Endo Chief Complaint/Reason for Call: Carly has sent over office notes for a CGM, however these notes were not electrically signed, and that's what are needed to proceed. Please advise Best time of day caller can be reached: Patient advised that office/PCP has 24-48 business hours to return their call: documented in this encounter [facility] 07-31-2022 Telephone encounter Note Name of caller: Gordon Contact phone number: [phone] Relationship to Patient: [employer] Provider: Anthony Practice: [facility] Chief Complaint/Reason for Call: Carly has sent over office notes for a CGM, however these notes were not electrically signed, and that's what are needed to proceed. Please advise Best time of day caller can be reached: Patient advised that office/PCP has 24-48 business hours to return their call: C[facility] 04-06-2022 History of Present illness Narrative (E11.3293, [...] 2022 1:47 PM documented in this encounter [facility] 01-06-2022 History of Present illness Narrative (Z96.1) [...] edema, with long-term current use of insulin ([facility]) Comment: Discussed stable retinopathy both eyes. Plan: [...] 2022 1:49 PM documented in this encounter [facility] 12-13-2021 Instructions Moses Acevedo MD - 12/13/2021 [...] in vision occurs. documented in this encounter [facility] 12-13-2021 History of Present illness Narrative (Z96.1) [...] exam both eyes in 4 mos with [facility]. I have confirmed and edited as [...] 2021 8:59 AM documented in this encounter [facility] 12-07-2021 Instructions Moses Acevedo MD - 12/07/2021 [...] in vision occurs. documented in this encounter [facility] 12-07-2021 History of Present illness Narrative (Z96.1) [...] 2021 9:22 AM documented in this encounter [facility] 12-06-2021 History of Past i llness Narrative [...] of this encounter (statuses as of 12/07/2021) [facility] History of Past illness Narrative* Problem Noted [...] of this encounter (statuses as of 12/13/2021) [facility] of Past illness Narrative* Problem Noted [...] of this encounter (statuses as of 01/06/2022) [facility] of Past illness Narrative* Problem Noted [...] of this encounter (statuses as of 04/06/2022) [facility] of Past illness Narrative* Problem Noted [...] of this encounter (statuses as of 04/11/2023) [facility] of Past illness Narrative* Problem Noted [...] of this encounter (statuses as of 10/26/2023) [facility] Miscellaneous Notes* Telephone Encounter - Gretchen Mario - 12/02/2021 11:13 AM EDT INTRAOCULAR LENS ORDER ATTN: [facility] PATIENTS NAME: Dameon Potter SURGERY DATE: 12/06/2021 EYE: OD SURGEON: Moses Acevedo MD LENS: [employer] MASS COMMUNICATIONS INSTRUCTOR: Lei MODEL: [id number] POWER: + 16.5 ADDITIONAL NOTES: NO MOXIFLOXACIN OR CEFUROXIME due to allergies diabetes sleep apnea [facility] Miscellaneous Notes* Telephone Encounter - Gretchen Mario - 12/02/2021 10:44 AM EDT Called and informed patient to arrive at [address] [place] [address], [facility] 260 at 6:55 am for 12/06/21 surgery with Moses Acevedo MD. Also reminded patient to refrain from eating or drinking for 8 hours prior to arrival for surgery, and to begin eyedrops in the right eye on 12/04/21. Patient states understanding and is agreeable. [facility]* Patient Instructions* Moses Acevedo MD - [...] change in vision occurs. [facility] History of Present illness Narrative* Moses Acevedo [...] edema, with long-term current use of insulin ([facility]) Comment: Discussed stable retinopathy both eyes. Plan: [...] 30, 2021 9:30 AM [facility]* Patient Instructions* Moses Acevedo MD - [...] three times a day. [facility] History of Present illness Narrative* Moses Acevedo [...] redness pain or change in vision occurs. (H40.0341) Primary open angle glaucoma of both eyes, [...] 23, 2021 8:45 AM [facility] History of Past illness Narrative* Problem Noted Date Resolved Date Combined forms of age-related cataract of left e ye 11/22/2021 11/22/2021 NS (nuclear sclerosis), unspecified laterality 1 11/05/2018 Diabetes mellitus type 2, insulin dependent 10/2205/12/2019 Open-angle glaucoma, moderate stage 05/05/2015 05/12/2019 NS (nuclear sclerosis) 05/05/2015 7 PSC (posterior subcapsular cataract), bilateral 05/05/2015 05/22/2017 documented as of this encounter (statuses as of 11/23/2021) [facility] of Past illness Narrative* Problem Noted Date Resolved Date Combined forms of age-related cataract of left e ye 11/22/2021 11/22/2021 NS (nuclear sclerosis), unspecified laterality 1 11/05/2018 Diabetes mellitus type 2, insulin dependent 10/2205/12/2019 Open-angle glaucoma, moderate stage 05/05/2015 05/12/2019 NS (nuclear sclerosis) 05/05/2015 7 PSC (posterior subcapsular cataract), bilateral 05/05/2015 05/22/2017 documented as of this encounter (statuses as of 11/30/2021) [facility] of Past illness Narrative* Problem Noted Date Resolved Date Combined forms of age-related cataract of left e ye 11/22/2021 11/22/2021 NS (nuclear sclerosis), unspecified laterality 1 11/05/2018 Diabetes mellitus type 2, insulin dependent 10/2205/12/2019 Open-angle glaucoma, moderate stage 05/05/2015 05/12/2019 NS (nuclear sclerosis) 05/05/2015 7 PSC (posterior subcapsular cataract), bilateral 05/05/2015 05/22/2017 documented as of this encounter (statuses as of 12/02/2021) [facility] Miscellaneous Notes* Telephone Encounter - Gretchen Fabiano - 11/18/2021 8:09 AM EDT INTRAOCULAR LENS ORDER ATTN: [facility] / [facility] PATIENTS NAME: Dameon Potter SURGERY DATE: 11/22/2021 EYE: OS SURGEON: Moses Acevedo MD LENS: [employer]ASS COMMUNICATIONS INSTRUCTOR: Lei MODEL: [id number] POWER: + 15.5 ADDITIONAL NOTES: NO MOXIFLOXACIN OR CEFUROXIME due to allergies diabetes sleep apnea [facility] Miscellaneous Notes* Telephone Encounter - Gretchen Mario - 11/17/2021 2:38 PM EDT Attempted to contact patient to inform to arrive at [address] [facility], [address] at 6:45 am for 11/22/21 surgery with Moses Acevedo MD, to refrain from eating or drinking for 8 hours prior to arrival for surgery, and to begin the eyedrops in the left eye on 11/20/21. Do not use prednisolone acetate until after surgery. Left message on machine to call with any questions or concerns. [facility] Miscellaneous Notes* Telephone Encounter - Sarah Haddad - 10/21/2021 2:57 PM EDT Left voicemail to remind patient she has an appointment in our [place] office at [address] [facility], [address], on Sunday10/24/21 at 8:00 am and to call our office at [phone] if any questions or if unable to keep the appointment. [facility] History of Past illness Narrative* Problem Noted Date Resolved Date NS (nuclear sclerosis), unspecified laterality 1 11/05/2018 Diabetes mellitus type 2, insulin dependent 10/2205/12/2019 Open-angle glaucoma, moderate stage 05/05/2015 05/12/2019 NS (nuclear sclerosis) 05/05/2015 7 PSC (posterior subcapsular cataract), bilateral 05/05/2015 05/22/2017 documented as of this encounter (statuses as of 10/21/2021) [facility] History of Past illness Narrative* Problem Noted Date Resolved Date NS (nuclear sclerosis), unspecified laterality 1 11/05/2018 Diabetes mellitus type 2, insulin dependent 10/2205/12/2019 Open-angle glaucoma, moderate stage 05/05/2015 05/12/2019 NS (nuclear sclerosis) 05/05/2015 7 PSC (posterior subcapsular cataract), bilateral 05/05/2015 05/22/2017 documented as of this encounter (statuses as of 11/17/2021) [facility] History of Past illness Narrative* Problem Noted Date Resolved Date NS (nuclear sclerosis), unspecified laterality 1 11/05/2018 Diabetes mellitus type 2, insulin dependent 10/2205/12/2019 Open-angle glaucoma, moderate stage 05/05/2015 05/12/2019 NS (nuclear sclerosis) 05/05/2015 7 PSC (posterior subcapsular cataract), bilateral 05/05/2015 05/22/2017 documented as of this encounter (statuses as of 11/18/2021) [facility] Pseudophakia of left eye- Primary [...] of senile cataract [facility] Diagnosis Pseudophakia of left eye- Primary Lens replaced by other means Combined forms of age-related cataract of both eyes Other and combined forms of senile cataract Combined forms of age-related cataract of both eyes Other and combined forms of senile cataract [facility] Diagnosis Pseudophakia, both eyes- Primary Lens replaced by other means Combined forms of age-related cataract of both eyes Other and combined forms of senile cataract Primary open angle glaucoma of both eyes, mild stage 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 Tear film insufficiency, unspecified [facility] Diagnosis Pseudophakia, both eyes- Primary Lens replaced by other means Combined forms of age-related cataract of both eyes Other and combined forms of senile cataract Primary open angle glaucoma of both eyes, mild stage 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 Tear film insufficiency, unspecified [facility]* Diagnosis Arterial insufficiency with ischemic ulcer (CMS/HCC) ([facility]) [facility] Diagnosis Lymphedema- Primary Other noninfectious lymphedema [facility]* Diagnosis Endometrial cancer (CMS/HCC) (HCC)- Primary Malignant neoplasm of corpus uteri, except isthmus Malignant neoplasm of body of uterus, unspecified site ([facility]) [facility]* Diagnosis Lymphedema Other noninfectious lymphedema [facility]* Diagnosis Lymphedema- Primary Other noninfectious lymphedema Generalized edema Edema [facility]* Diagnosis Lymphedema Other noninfectious lymphedema [facility]* Diagnosis Lymphedema Other noninfectious lymphedema [facility]* Diagnosis Lymphedema- Primary Other noninfectious lymphedema [facility]* Diagnosis Type 2 diabetes mellitus with hyperglycemia, with long-term current use of insulin (CMS/HCC) (HCC)- Primary 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 without macular edema, with long-term current use of insulin ([facility]) Primary hypertension Unspecified essential hypertension Hyperlipidemia associated with type 2 diabetes mellitus ([facility]) Class 3 severe obesity due to excess calories with serious comorbidity and body mass index (BMI) of 45.0 to 49.9 in adult ([facility]) Acquired hypothyroidism Unspecified hypothyroidism Insulin resistance Other abnormal glucose documented in this encounter [facility] note* Diagnosis Lymphedema Other noninfectious lymphedema Generalized edema Edema documented in this encounter [facility] note* Diagnosis Lymphedema- Primary Other noninfectious lymphedema documented in this encounter [facility] note* Diagnosis Lymphedema- Primary Other noninfectious lymphedema documented in this encounter [facility] note* Diagnosis Endometrial cancer ([facility]/HCC) ([facility])- Primary Malignant neoplasm of corpus uteri, except isthmus [facility]* Diagnosis Lymphedema- Primary Other noninfectious lymphedema documented in this encounter [facility] note* Diagnosis Lymphedema Other noninfectious lymphedema documented in this encounter [facility] note* Diagnosis Uncontrolled type 2 diabetes mellitus with hyperglycemia, with long-term current use of insulin ([facility]) documented in this encounter [facility] note* Diagnosis Non-pressure chronic ulcer left lower leg, limited to breakdown skin ([facility])- Primary documented in this encounter [facility] note* Diagnosis Primary open angle glaucoma of both eyes, mild stage- Primary 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 and macular edema, without long-term current use of insulin ([facility]) 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 Tear film insufficiency, unspecified Refractive error Unspecified disorder of refraction and accommodation Dermatochalasis of upper and lower eyelids of both eyes [facility]* Diagnosis Non-pressure chronic ulcer left lower leg, 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)- Primary documented in this encounter [facility] note* Diagnosis Non-pressure chronic ulcer left lower leg, 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)- Primary Lymphedema Other noninfectious lymphedema [facility]* Diagnosis Lymphedema Other noninfectious lymphedema documented in this encounter [facility] note* Diagnosis Lymphedema- Primary Other noninfectious lymphedema [facility]* Diagnosis 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 Type 2 diabetes mellitus with hyperglycemia, with long-term current use of insulin ([facility]) Mixed hyperlipidemia Primary hypertension Unspecified essential hypertension [facility]* Diagnosis Lymphedema- Primary Other noninfectious lymphedema documented [facility]* Diagnosis Lymphedema Other noninfectious lymphedema documented in this encounter [facility] note* Diagnosis Lymphedema- Primary Other noninfectious lymphedema documented in this encounter [facility] note* Diagnosis Lymphedema Other noninfectious lymphedema documented [facility]* Diagnosis Lymphedema Other noninfectious lymphedema documented in this encounter [facility] note* Diagnosis Lymphedema Other noninfectious lymphedema documented [facility]* Diagnosis Endometrial cancer (CMS/HCC) (HCC)- Primary Malignant neoplasm of corpus uteri, except isthmus documented [facility]* Diagnosis Lymphedema Other noninfectious lymphedema documented in this encounter [facility] note* Diagnosis Lymphedema- Primary Other noninfectious lymphedema documented in this encounter [facility] note* Diagnosis Lymphedema- Primary Other noninfectious lymphedema Generalized edema Edema documented in this encounter [facility] note* Diagnosis Primary open angle glaucoma of both eyes, mild stage- Primary 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 Tear film insufficiency, unspecified Cortical cataract of both eyes Unspecified cataract [facility]* Diagnosis Endometrial cancer (CMS/HCC) (HCC)- Primary Malignant neoplasm of corpus uteri, except isthmus Malignant neoplasm of body of uterus, unspecified site ([facility]) documented in this encounter [facility] note* Diagnosis Type 2 diabetes mellitus with hyperglycemia, with long-term current use of insulin (HCC)- Primary Primary hypertension Unspecified essential hypertension Hyperlipidemia associated with type 2 diabetes mellitus (HCC) (HCC) Class 3 severe obesity due to excess calories with serious comorbidity and body mass index (BMI) of 45.0 to 49.9 in adult ([facility]) Acquired hypothyroidism Unspecified hypothyroidism Insulin resistance Other abnormal glucose 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 and macular edema, with long-term current use of insulin ([facility]) [facility]* Diagnosis Lymphedema- Primary Other noninfectious lymphedema documented [facility]* Diagnosis Hypertensive retinopathy, bilateral- Primary 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 macular edema, with long-term current use of insulin ([facility]) [facility]* Diagnosis Lymphedema of both lower extremities documented in this encounter [facility] note* Diagnosis Endometrial cancer (CMS/HCC) (HCC) Malignant neoplasm of corpus uteri, except isthmus documented [facility]* Diagnosis Lymphedema- Primary Other noninfectious lymphedema documented in this encounter [facility] note* Diagnosis Lymphedema Other noninfectious lymphedema documented in this encounter [facility] note* Diagnosis Lymphedema- Primary Other noninfectious lymphedema documented in this encounter [facility] note* Diagnosis Lymphedema Other noninfectious lymphedema documented in this encounter [facility] note* Diagnosis Lymphedema of both lower extremities- Primary [facility]* Diagnosis Lymphedema of both lower extremities documented in this encounter [facility] note* Diagnosis Vaginal discharge- Primary Leukorrhea, not specified as infective Endometrial cancer (CMS/HCC) (HCC) Malignant neoplasm of corpus uteri, except isthmus Obesity with body mass index greater than 30 Lymphedema Other noninfectious lymphedema Malignant neoplasm of body of uterus, unspecified site ([facility]) documented in this encounter [facility] note* Diagnosis Essential (primary) hypertension Unspecified essential hypertension Cardiac murmur, unspecified [facility]* Diagnosis Lymphedema of both lower extremities- Primary [facility]* Diagnosis Type 2 diabetes mellitus with hyperglycemia, with long-term current use of insulin ([facility])- Primary Primary hypertension Unspecified essential hypertension Hyperlipidemia associated with type 2 diabetes mellitus (HCC) ([facility]) Class 3 severe obesity due to excess calories with serious comorbidity and body mass index (BMI) of 40.0 to 44.9 in adult ([facility]) Acquired hypothyroidism Unspecified hypothyroidism Insulin resistance Other abnormal glucose documented in this encounter [facility] note* Diagnosis Lymphedema of both lower extremities [facility]* Diagnosis Primary open angle glaucoma of both eyes, mild stage- Primary 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 macular edema, with long-term current use of insulin ([facility]) 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 Tear film insufficiency, unspecified Refractive error Unspecified disorder of refraction and accommodation Dermatochalasis of upper and lower eyelids of both eyes [facility] Diagnosis Lymphedema Other noninfectious lymphedema [facility]* Diagnosis Essential (primary) hypertension- Primary Unspecified essential hypertension Cardiac murmur, unspecified Essential (primary) hypertension Unspecified essential hypertension Cardiac murmur, unspecified [facility]* Diagnosis Lymphedema- Primary Other noninfectious lymphedema [facility]* Diagnosis Endometrial cancer ([facility]) ([facility])- Primary Malignant neoplasm of corpus uteri, except isthmus [facility]* Diagnosis Lymphedema- Primary Other noninfectious lymphedema [facility]* Diagnosis Lymphedema [I89.0 (ICD-10-CM)] Other noninfectious lymphedema [facility]* Diagnosis Hyperglycemia- Primary Other abnormal [...] Weight loss Loss of weight Severe malnutrition (CMS/[facility]) (HCC) Nutritional marasmus [facility]* Diagnosis Persistent atrial fibrillation (HCC)- Primary Atrial fibrillation Type 2 diabetes mellitus with hyperglycemia, with long-term current use of insulin (HCC) Cognitive decline Debility Unspecified debility Essential hypertension, benign Moderate aortic stenosis Aortic valve disorders Mixed hyperlipidemia Primary open angle glaucoma of both eyes, mild stage Acquired hypothyroidism Unspecified hypothyroidism Vitamin D deficiency [facility]* Diagnosis Persistent atrial fibrillation (HCC)- Primary Atrial fibrillation Type 2 diabetes mellitus with hyperglycemia, with long-term current use of insulin ([facility]) Cognitive decline Debility Unspecified debility Essential hypertension, [...] moderate Mixed hyperlipidemia [facility]* Diagnosis Persistent atrial fibrillation [...] of nonorganic origin [facility]* Diagnosis Persistent atrial fibrillation [...] isthmus Other amnesia [facility]* Diagnosis Persistent atrial fibrillation [...] Vitamin D deficiency documented [facility]* Diagnosis Persistent atrial fibrillation (HCC)- [...] both lower extremities [facility]* Diagnosis Persistent atrial fibrillation [...] moderate Mixed hyperlipidemia [facility]* Diagnosis Persistent atrial fibrillation [...] of insulin (HCC) documented in this encounter [facility] note* Diagnosis Persistent atrial fibrillation [...] not elsewhere classified [facility]* Diagnosis Persistent atrial fibrillation [...] not elsewhere classified [facility]* Diagnosis Persistent atrial fibrillation [...] not elsewhere classified [facility]* Diagnosis Persistent atrial fibrillation [...] uteri, except isthmus [facility] Diagnosis Persistent atrial fibrillation (HCC)- [...] uteri, except isthmus [facility]* Diagnosis Abnormal weight loss- [...] of insulin (HCC) [facility] Diagnosis Persistent atrial fibrillation (HCC)- [...] underlying condition (HCC) documented in this encounter [facility] for visit Narrative* Imaging (Routine) - Closed Specialty Diagnoses / Procedures Referred By Contac t Referred To Contact Radiology Diagnoses Abnormal weight loss Other malaise Malignant neoplasm of endometrium (HCC) Other amnesia Procedures CT head w and wo IV contrast Christy Leach MD [address] [facility] [address] [place] [address] Phone: tel: fax: Referral ID Status Reason Start Date Expiration Date Visits Re quested Visits Authorized [id number] Closed 10/27/2024 10/27/2025 1 1 [facility] for visit Narrative* Imaging (Routine) - Closed Specialty Diagnoses / Procedures Referred By Contac t Referred To Contact Radiology Diagnoses Abnormal weight loss Other malaise Malignant neoplasm of endometrium (HCC) Other amnesia Procedures CT chest abdomen pelvis with contrast Christy Leach MD [address] [facility] [address] [place] [address] Phone: tel: fax: Referral ID Status Reason Start Date Expiration Date Visits Re quested Visits Authorized [id number] Closed 10/27/2024 10/27/2025 1 1 [facility] for visit Narrative* Imaging (Routine) - Closed Specialty Diagnoses / Procedures Referred By Contac t Referred To Contact Radiology Diagnoses Endometrial cancer (CMS/HCC) (HCC) Multiple lung nodules Procedures CT guided biopsy abdomen or retroperitoneum Cuauhtemoc Stubbs MD [address] [facility] [address] [place] [address] Phone: tel: fax: Referral ID Status Reason Start Date Expiration Date Visits Re quested Visits Authorized [id number] Closed 12/10/2024 12/10/2025 [facility] (Routine) - Closed Specialty Diagnoses / Procedures Referred By Elias piedra Referred To Contact Radiology Diagnoses Multiple lung nodules Endometrial cancer (CMS/HCC) (HCC) Procedures PET/CT skull base to mid thigh Cuauhtemoc Stubbs MD [address] [facility] [address] [place] [address] Phone: tel: fax: [facility] [address] [place] [address] Phone: tel: Referral ID Status Reason Start Date Expiration Date Visits Re quested Visits Authorized [id number] Closed 12/23/2024 12/23/2025 1 1 [facility] Fwd: Power Advance Directives Documents on File Type Date Recorded Patient Web Marketing Analyst Expl anation ACP-Advance Directive 02/05/2018 9:43 [...] Documents on File Type Date Recorded Patient Web Marketing Analyst Expl anation Advance Directives and Livin g Will Advance Directives and Livin g Will 02/05/2018 9:43 AM Power of Mobile Heavy Equipment Mechanic Latest Code Status on File Code Status Date Activated Date Inactivated Comments Full Code 01/30/2018 9:44 AM 02/01/2018 8:47 PM Full Code 03/20/2017 10:43 AM 03/20/2017 3:27 PM Documents on File Type Date Recorded Patient Web Marketing Analyst Expl anation ACP-Advance Directive ACP-Advance Directive 02/05/2018 9:43 AM ACP-Power of Mobile Heavy Equipment Mechanic Latest Code Status on File Code Status Date Activated Date Inactivated Comments Full Code 09/30/2020 3:48 PM Documents on File Type Date Recorded Patient Web Marketing Analyst Expl anation ACP-Advance Directive ACP-Advance Directive 02/05/2018 9:43 AM ACP-Power of Mobile Heavy Equipment Mechanic Latest Code Status on File Code Status Date Activated Date Inactivated Comments Full Code 09/30/2020 3:48 PM 10/01/2020 8:11 PM Full Code 09/30/2020 5:36 AM 09/30/2020 3:24 PM Full Code 01/30/2018 9:44 AM 02/01/2018 8:47 PM Full Code 01/29/2018 9:19 PM 01/30/2018 9:44 AM Full Code 01/29/2018 9:51 AM 01/29/2018 8:58 PM Documents on File Type Date Recorded Patient Web Marketing Analyst Expl anation ACP-Advance Directive ACP-Power of Mobile Heavy Equipment Mechanic ACP-Advance Directive 02/05/2018 9:43 AM Documents on File Type Date Recorded Patient Web Marketing Analyst Expl anation Advance Directive(s) 09/03/2020 6:43 AM Advance Directive(s) 09/03/2020 6:45 AM Documents on File Type Date Recorded Patient Web Marketing Analyst Expl anation Advance Directive(s) 11/22/2021 6:39 AM Advance Directive(s) 09/03/2020 6:43 AM Advance Directive(s) 09/03/2020 6:45 AM Documents on File Type Date Recorded Patient Web Marketing Analyst Expl anation Advance Directive(s) 12/06/2021 6:45 [...] Documents on File Type Date Recorded Patient Web Marketing Analyst Expl anation Power of Mobile Heavy Equipment Mechanic 05/11/2025 6:50 PM Advance Directives and Livin g Will 05/11/2025 6:50 PM DNR (Do Not Resuscitate) 05/19/2025 2:11 PM [place] DNR Form Date Activated Date Inactivated Comments [...] Records Found Procedure Findings Note HNO ID: [id number] Author: Haile olmedo ([place] Human Services Worker) Marvin Service: Anesthesiology Author Type: Nurse Compliance Advisor Type: Anesthesia Procedure Notes Filed: 09/03/2020 8:29 AM Note Text: ANESTHESIOLOGY PROCEDURE NOTE Airway General Information Procedure Start Time/Medication Administration: 09/03/2020 8:05 AM Patient location during procedure: OR Timeout Performed Pre-procedure: timeout performed Consent Obtained: Yes Patient identity confirmed: arm band Staffing BLOCK MASON: Alejandra Burden Human Services Worker) Marvin Performed by: BLOCK MASON Indications and Patient Condition Preoxygenated: yes Patient [...] Coleman RN - 09/23/2020 [facility] your [facility] Fwd: Power Surgical Information folder on the day of [...] through Care Everywhere. * Laparoscopic Hysterectomy: Pre-op ([place] Citizen) * Laparoscopic Hysterectomy: Post-op ([place] Citizen) documented in this encounter* Instructions* Gloria Giraldo MD - 10/01/2020 Please see discharge instructions provided in the office. * Attachments The following attachments cannot be sent through Care Everywhere. * Hysterectomy: Abdominal: Post-op ([place] Citizen) * Hysterectomy: General Info ([place] Citizen) * ibuprofen ([place] Citizen) * oxycodone ([place] Citizen) * Diabetes: Type 2: Metformin: General Info ([place] Citizen) documented in this encounter Hospital Course * Cuauhtemoc Stubbs MD - 10/01/2020 7:16 AM EST Images from the original note were not included. Delivery Professional Discharge Summary Patient Name: Dameon Potter Patient [...] Discharge: Medications: Dameon Potter Home Medication Instructions BATOOL:[id number] Printed on:10/01/20 6807 Medication Information acetaminophen (APAP EXTRA STRENGTH) 500 [...] from the original note were not included. 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 Date: 10/01/2020 Time: 6:03 AM [...] 97% 96% Weight: Height: Intake/Output: Last Shift: @[id number]@ Current Shift: I/O this shift: In: - [...] 650 mg 650 mg Oral Q4H PRN Cement E Denisa, DO oxyCODONE (ROXICODONE) immediate release tablet 5 mg 5 mg Oral Q4H PRN [facility], DO Or oxyCODONE (ROXICODONE) immediate release tablet 10 mg 10 mg Oral Q4H PRN Cement E Denisa, DO promethazine (PHENERGAN) tablet 12.5 mg 12.5 mg Oral Q6H PRN [facility], DO Or ondansetron (ZOFRAN) injection 4 mg 4 mg Intravenous Q6H PRN Cement E Denisa, DO ibuprofen (ADVIL;MOTRIN) tablet 600 mg 600 mg Oral Q6H [facility], DO 600 mg at 10/01/20 0517 bisacodyl (DULCOLAX) EC tablet 5 mg 5 mg Oral Daily [facility], DO insulin lispro (HUMALOG) injection vial 0-18 Units 0-18 Units Subcutaneous 4x Daily [facility], DO 15 Units at 09/30/20 1902 glucose (GLUTOSE) 40 % oral gel 15 g 15 g Oral PRN [facility], DO dextrose 50 % IV solution 12.5 g Intravenous PRN [facility], DO glucagon (rDNA) injection 1 mg 1 mg Intramuscular PRN [facility], DO dextrose 5 % solution 100 mL/hr Intravenous PRN [facility], DO hydrALAZINE (APRESOLINE) injection 10 mg 10 mg Intravenous Q4H PRN [facility], DO 10 mg at 09/30/20 1802 carvedilol (COREG) tablet 6.25 mg 6.25 mg Oral BID [facility], DO 6.25 mg at 09/30/20 1802 insulin [...] 10%-15% lower than serum/plasma values. (CLIA ID [id number]) POC Glucose 09/30/2020 343* 70 - 100 mg/dL Final Comment: Test performed by glucose meter. Results may be 10%-15% lower than serum/plasma values. (CLIA ID [id number]) POC Glucose 09/30/2020 317* 70 - 100 mg/dL Final Comment: Test performed by glucose meter. Results may be 10%-15% lower than serum/plasma values. (CLIA ID [id number]) POC Glucose 09/30/2020 379* 70 - 100 mg/dL Final Comment: Test performed by glucose meter. Results may be 10%-15% lower than serum/plasma values. (CLIA ID [id number]) POC Glucose 09/30/2020 308* 70 - 100 mg/dL Final Comment: Test performed by glucose meter. Results may be 10%-15% lower than serum/plasma values. (CLIA ID [id number]) POC Glucose 09/30/2020 288* 70 - 100 mg/dL Final Comment: Test performed by glucose meter. Results may be 10%-15% lower than serum/plasma values. (CLIA ID [id number]) POC Glucose 09/30/2020 366* 70 - 100 mg/dL Final Comment: Test performed by glucose meter. Results may be 10%-15% lower than serum/plasma values. (CLIA ID [id number]) POC Glucose 09/30/2020 388* 70 - 100 mg/dL Final Comment: Test performed by glucose meter. Results may be 10%-15% lower than serum/plasma values. (CLIA ID [id number]) POC Glucose 09/30/2020 355* 70 - 100 mg/dL Final Comment: Test performed by glucose meter. Results may be 10%-15% lower than serum/plasma values. (CLIA ID [id number]) POC Glucose 10/01/2020 341* 70 - 100 mg/dL Final Comment: Test performed by glucose meter. Results may be 10%-15% lower than serum/plasma values. (CLIA ID [id number]) ] Assessment/Plan: Dameon Potter 65 y.o. female [...] EST PERFECT SERVED PRIMARY FOR SSI ORDERS, [id number] * Claudette Christianson RN - 09/30/2020 10:30 AM EST Notified BLOCK MASON of OTBS 308. 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 [place] [address] Referral ID Status Reason Start Date Expiration Date V isits Requested Visits Authorized [id number] Pending Review 11/01/2023 10/31/2024 1 1 Specialty Diagnoses / Procedures Referred By Contac t Referred To Contact Radiology Diagnoses Endometrial cancer (CMS/HCC) (HCC) Procedures CT abdomen pelvis w contrast Frandy, Anjana, INSURANCE CLAIM AUDITOR - OPTICAL ADVISOR [address] [place] [address] [facility] [address] [facility] [address] [place] [address] Referral ID Status Reason Start Date Expiration Date Visits Re quested Visits Authorized [id number] Closed 11/01/2023 10/31/2024 1 1 Specialty Diagnoses / Procedures Referred By Contac t Referred To Contact Cardiology Diagnoses Essential (primary) hypertension Cardiac murmur, unspecified Procedures Transthoracic echocardiogram (TTE) complete with contrast, bubble, strain, and 3D PRN WI ECHO TTHRC R-T 2D W/WOM-MODE COMPL SPEC&COLR D WI TTE W OR WO FOL WCON,DOPPLER Dom Jovon, Christy Gill MD [address] [facility] [address] [place] [address] [facility] [address] [facility] [address] [place] [address] Referral ID Status Reason Start Date Expiration Date Visits Re quested Visits Authorized [id number] Closed 02/28/2024 02/27/2025 1 1 Medications Administered [...] the event of a Fluress shortage, administer [place]-Fluor 1 drop into both eyes as directed [...] the event of a Fluress shortage, administer [place]-Fluor 1 drop into both eyes as directed [...] the event of a Fluress shortage, administer [place]-Fluor 1 drop into both eyes as directed [...] the event of a Fluress shortage, administer [place]-Fluor 1 drop into both eyes as directed [...] section and content) DATE CREATED AUTHOR 09/11/2020 [facility] DATE CREATED AUTHOR AUTHOR'S ORGANIZ ATION 01/12/2021 [facility] DATE CREATED AUTHOR AUTHOR'S ORGANIZ ATION 12/09/2021 [facility] DATE CREATED AUTHOR AUTHOR'S ORGANIZ ATION 05/15/2022 [facility] DATE CREATED AUTHOR AUTHOR'S ORGANIZ ATION 05/10/2024 [facility] DATE CREATED AUTHOR AUTHOR'S ORGANIZ ATION 09/25/2024 [facility] DATE CREATED AUTHOR AUTHOR'S ORGANIZ ATION 05/21/2025 [facility] Ordered Prescriptions (unrec ognized section and content) [...] Care Teams (unrecognized sec tion and content) Sleeve Baster Relationship Specialty Start Date End Date Christy Leach MD [address] [facility], [address] [place] [address] PCP - General 01/01/15 Sleeve Baster Relationship Specialty [place] [address] [place] [address], [address] [place] [id number] PCP - General 01/01/15 Sleeve Baster Relationship Specialty Start Date End Date Christy Leach MD [address] [facility] [place] [address] PCP - General 01/01/15 Sleeve Baster Relationship Specialty Start Date End Date Christy Mendez Jr. [address] [place] [address] PCP - General Family Practice 09/16/21 Sleeve Baster Relationship Specialty Start Date End Date Christy Leach MD [address] [facility] [place] [address] PCP - General 01/01/15 Sleeve Baster Relationship Specialty Start Date End Date Christy Mendez Jr. [address] [place] [address] PCP - General Family Practice 09/16/21 Sleeve Baster Relationship Specialty Start Date End Date Christy Mendez Jr. [address] [place] [address] PCP - General Family Practice 09/16/21 Sleeve Baster Relationship Specialty Start Date End Date Christy Mendez Jr. [address] [place] [address] PCP - General Family Practice 09/16/21 Sleeve Baster Relationship Specialty Start Date End Date Christy Mendez Jr. [address] [place] [address] PCP - General Family Practice 09/16/21 Sleeve Baster Relationship Specialty Start Date End Date Christy Leach MD [address] [facility] [place] [address] PCP - General 01/01/15 Sleeve Baster Relationship Specialty Start Date End Date Christy Mendez Jr. [address] [facility] [address] [place] [address] PCP - General Family Practice 09/16/21 Sleeve Baster Relationship Specialty Start Date End Date Christy Mendez [address] [facility] [address] [place] [address] PCP - General Family Practice 09/16/21 Sleeve Baster Relationship Specialty Start Date End Date Christy Leach MD [address] [facility] [place], [place] [address] PCP - General 01/01/15 Sleeve Baster Relationship Specialty Start Date End Date Christy Leach MD [address] [facility], [address] [place], [place] [address] PCP - General 01/01/15 Sleeve Baster Relationship Specialty Start Date End Date Christy Leach MD [address] [facility] [address] [place] [address] PCP - General 01/01/15 Sleeve Baster Relationship Specialty Start Date End Date Christy Leach MD [address] [facility] [address] [place] [address] PCP - General 01/01/15 Sleeve Baster Relationship Specialty Start Date End Date Christy Leach MD [address] [facility] [address] [place] [address] PCP - General 01/01/15 Sleeve Baster Relationship Specialty Start Date End Date Christy Leach MD [address] [facility] [address] [place] [address] PCP - General 01/01/15 Jaqueline Grayson, INSURANCE CLAIM AUDITOR - OPTICAL ADVISOR [address] [address] Nurse Practitioner Certified Nurse Practitioner 11/03/22 Sleeve Baster Relationship Specialty Start Date End Date Christy Leach MD [address] [facility] [address] [place] [address] PCP - General 01/01/15 Jaqueline Gryason, INSURANCE CLAIM AUDITOR - OPTICAL ADVISOR [address] [address] Nurse Practitioner Certified Nurse Practitioner 11/03/22 Sleeve Baster Relationship Specialty Start Date End Date Christy Leach MD [address] [facility] [address] [place] [address] PCP - General 01/01/15 Jaqueline Grayson, INSURANCE CLAIM AUDITOR - OPTICAL ADVISOR [address] [address] Nurse Practitioner Certified Nurse Practitioner 11/03/22 Sleeve Baster Relationship Specialty Start Date End Date Christy Leach MD [address] [facility] [address] [place] [address] PCP - General 01/01/15 Jaqueline Grayson, INSURANCE CLAIM AUDITOR - OPTICAL ADVISOR [address] [address] Nurse Practitioner Certified Nurse Practitioner 11/03/22 Sleeve Baster Relationship Specialty Start Date End Date Christy Leach MD [address] [facility] [address] [place] [address] PCP - General 01/01/15 Jaqueline Grayson, INSURANCE CLAIM AUDITOR - OPTICAL ADVISOR [address] [address] Nurse Practitioner Certified Nurse Practitioner 11/03/22 Sleeve Baster Relationship Specialty Start Date End Date Christy Leach MD [address] [facility] [address] [place] [address] PCP - General 01/01/15 Jaqueline Grayson, INSURANCE CLAIM AUDITOR - OPTICAL ADVISOR [address] [place] [address] Nurse Practitioner Certified Nurse Practitioner 11/03/22 Sleeve Baster Relationship Specialty Start Date End Date Christy Leach MD [address] [facility] [address] [place] [address] PCP - General 01/01/15 Jaqueline Grayson, INSURANCE CLAIM AUDITOR - OPTICAL ADVISOR [address] [place] [address] Nurse Practitioner Certified Nurse Practitioner 11/03/22 Sleeve Baster Relationship Specialty Start Date End Date Christy Leach MD [address] [facility] [address] [place] [address] PCP - General 01/01/15 Jaqueline Grayson, INSURANCE CLAIM AUDITOR - OPTICAL ADVISOR [address] [place] [address] Nurse Practitioner Certified Nurse Practitioner 11/03/22 Sleeve Baster Relationship Specialty Start Date End Date Christy Leach MD [address] [facility] [address] [place] [address] PCP - General 01/01/15 Jaqueline Grayson, INSURANCE CLAIM AUDITOR - OPTICAL ADVISOR [address] [place] [id number] Nurse Practitioner Certified Nurse Practitioner 11/03/22 Sleeve Baster Relationship Specialty Start Date End Date Christy Leach MD [address] [facility] [address] [place] [address] PCP - General 01/01/15 Jaqueline Grayson APRN - OPTICAL ADVISOR [address] [place] [address] Nurse Practitioner Certified Nurse Practitioner 11/03/22 Sleeve Baster Relationship Specialty Start Date End Date Christy Leach MD [address] [facility] [address] [place] [address] PCP - General 01/01/15 Jaqueline Grayson INSURANCE CLAIM AUDITOR - OPTICAL ADVISOR [address] [place] [address] Nurse Practitioner Certified Nurse Practitioner 11/03/22 Sleeve Baster Relationship Specialty Start Date End Date Christy Mendez Jr., MD [address] [facility] [address] [place] [address] PCP - General Family Medicine 09/16/21 Sleeve Baster Relationship Specialty Start Date End Date Christy Leach MD [address] [facility] [address] [place] [address] PCP - General 01/01/15 Jaqueline Grayson APRN - OPTICAL ADVISOR [address] [place] [address] Nurse Practitioner Certified Nurse Practitioner 11/03/22 Sleeve Baster Relationship Specialty Start Date End Date Christy Leach MD [address] [place] [address] PCP - General 01/01/15 Jaqueline Grayson, INSURANCE CLAIM AUDITOR - OPTICAL ADVISOR [address] [place] [address] Nurse Practitioner Certified Nurse Practitioner 11/03/22 Sleeve Baster Relationship Specialty Start Date End Date Christy Leach MD [address] [facility] [address] [place] [address] PCP - General 01/01/15 Jaqueline Grayson, INSURANCE CLAIM AUDITOR - OPTICAL ADVISOR [address] [place] [address] Nurse Practitioner Certified Nurse Practitioner 11/03/22 Sleeve Baster Relationship Specialty Start Date End Date Christy Leach MD [address] [facility] [address] [place] [address] PCP - General 01/01/15 Jaqueline Grayson, INSURANCE CLAIM AUDITOR - OPTICAL ADVISOR [address] [place] [address] Nurse Practitioner Certified Nurse Practitioner 11/03/22 Sleeve Baster Relationship Specialty Start Date End Date Christy Leach MD [address] [facility] [address] [place] [address] PCP - General 01/01/15 Jaqueline Grayson, INSURANCE CLAIM AUDITOR - OPTICAL ADVISOR [address] [place] [address] Nurse Practitioner Certified Nurse Practitioner 11/03/22 Sleeve Baster Relationship Specialty Start Date End Date Christy Leach MD [address] [facility] [address] [place] [address] PCP - General 01/01/15 Jaqueline Grayson, INSURANCE CLAIM AUDITOR - OPTICAL ADVISOR [address] [place] [address] Nurse Practitioner Certified Nurse Practitioner 11/03/22 Sleeve Baster Relationship Specialty Start Date End Date Christy Leach MD [address] [facility] [address] [place] [address] PCP - General 01/01/15 Jaqueline Grayson, INSURANCE CLAIM AUDITOR - OPTICAL ADVISOR [address] [facility] [address] [place] [address] Nurse Practitioner Certified Nurse Practitioner 11/03/22 Sleeve Baster Relationship Specialty Start Date End Date Christy Leach MD [address] [facility] [address] [place] [address] PCP - General 01/01/15 Jaqueline Grayson, INSURANCE CLAIM AUDITOR - OPTICAL ADVISOR [address] [facility] [address] [place] [address] Nurse Practitioner Certified Nurse Practitioner 11/03/22 Sleeve Baster Relationship Specialty Start Date End Date Christy Leach MD [address] [facility] [address] [place] [address] PCP - General 01/01/15 Jaqueline Grayson, INSURANCE CLAIM AUDITOR - OPTICAL ADVISOR [address] [place] [address] Nurse Practitioner Certified Nurse Practitioner 11/03/22 Sleeve Baster Relationship Specialty Start Date End Date Christy Leach MD [address] [facility] [address] [place] [address] PCP - General 01/01/15 Jaqueline Grayson, INSURANCE CLAIM AUDITOR - OPTICAL ADVISOR [address] [place] [address] Nurse Practitioner Certified Nurse Practitioner 11/03/22 Sleeve Baster Relationship Specialty Start Date End Date Christy Leach MD [address] [facility] [address] [place] [address] PCP - General 01/01/15 Jaqueline Grayson, INSURANCE CLAIM AUDITOR - OPTICAL ADVISOR [address] [facility] [address] [place] [address] Nurse Practitioner Certified Nurse Practitioner 11/03/22 Sleeve Baster Relationship Specialty Start Date End Date Christy Leach MD [address] [facility] [address] [place] [address] PCP - General 01/01/15 Jaqueline Grayson, INSURANCE CLAIM AUDITOR - OPTICAL ADVISOR [address] [facility] [address] [place] [address] Nurse Practitioner Certified Nurse Practitioner 11/03/22 Sleeve Baster Relationship Specialty Start Date End Date Christy Mendez Jr., MD [address] [facility] [address] [place] [address] PCP - General Family Medicine 09/16/21 Sleeve Baster Relationship Specialty Start Date End Date Christy Leach MD [address] [place] [address] PCP - General 01/01/15 Jaqueline Grayson APRN - SAMUEL [address] [place] [address] Nurse Practitioner Certified Nurse Practitioner 11/03/22 Anjana Meadows APRN - SAMUEL [address] [place] [address] Nurse Practitioner Nurse Practitioner 11/01/23 Sleeve Baster Relationship Specialty Start Date End Date Christy Leach MD [address] [place] [address] PCP - General 01/01/15 Jaqueline Grayson APRN - OPTICAL ADVISOR [address] [place] [address] Nurse Practitioner Certified Nurse Practitioner 11/03/22 Anjana Meadows APRN - OPTICAL ADVISOR [address] [place] [address] Nurse Practitioner Nurse Practitioner 11/01/23 Cuauhtemoc Stubbs MD [address] [place] [address] Consulting Physician Gynecologic Oncology 11/05/23 Sleeve Baster Relationship Specialty Start Date End Date Christy Leach MD [address] [facility] [address] [place] [phone] PCP - General 01/01/15 Jaqueline Grayson APRN - OPTICAL ADVISOR [address] [place] [address] Nurse Practitioner Certified Nurse Practitioner 11/03/22 Anjana Meadows APRN - SAMUEL [address] [facility] [address] [place] [address] Nurse Practitioner Nurse Practitioner 11/01/23 Sleeve Baster Relationship Specialty Start Date End Date Christy Leach MD [address] [facility] [address] [place] [phone] PCP - General 01/01/15 Jaqueline Grayson APRN - OPTICAL ADVISOR [address] [facility] [address] [place] [address] Nurse Practitioner Certified Nurse Practitioner 11/03/22 Anjana Meadows APRN - OPTICAL ADVISOR [address] [facility] [address] [place] [address] Nurse Practitioner Nurse Practitioner 11/01/23 Cuauhtemoc Stubbs MD [address] [facility] [address] [place] [address] Consulting Physician Gynecologic Oncology 11/05/23 Sleeve Baster Relationship Specialty Start Date End Date Christy Mendez Jr., MD [address] [facility] [address] [place] [address] PCP - General Family Medicine 09/16/21 Sleeve Baster Relationship Specialty Start Date End Date Christy Leach MD [address] [facility] [address] [place] [phone] PCP - General 01/01/15 Jaqueline Grayson APRN - OPTICAL ADVISOR [address] [place] [address] Nurse Practitioner Certified Nurse Practitioner 11/03/22 Anjana Meadows APRN - SAMUEL [address] [place] [address] Nurse Practitioner Nurse Practitioner 11/01/23 Cuauhtemoc Stubbs MD [address] [place] [address] Consulting Physician Gynecologic Oncology 11/05/23 Sleeve Baster Relationship Specialty Start Date End Date Christy Leach MD [address] [place] [phone] PCP - General 01/01/15 Jaqueline Grayson APRN - OPTICAL ADVISOR [address] [place] [address] Nurse Practitioner Certified Nurse Practitioner 11/03/22 Anjana Meadows APRN - OPTICAL ADVISOR [address] [facility] [place] [address] Nurse Practitioner Nurse Practitioner 11/01/23 Cuauhtemoc Stubbs MD [address] [place] [address] Consulting Physician Gynecologic Oncology 11/05/23 Sleeve Baster Relationship Specialty Start Date End Date Christy Leach MD [address] [place] [phone] PCP - General 01/01/15 Jaqueline Grayson APRN - OPTICAL ADVISOR [address] [place] [address] Nurse Practitioner Certified Nurse Practitioner 11/03/22 Anjana Meadows APRN - OPTICAL ADVISOR [address] [facility] [address] [place] [address] Nurse Practitioner Nurse Practitioner 11/01/23 Cuauhtemoc Stubbs MD [address] [facility] [address] [place] [address] Consulting Physician Gynecologic Oncology 11/05/23 Sleeve Baster Relationship Specialty Start Date End Date Christy Leach MD [address] [place] [phone] PCP - General 01/01/15 Jaqueline Grayson INSURANCE CLAIM AUDITOR - OPTICAL ADVISOR [address] [facility] [address] [place] [address] Nurse Practitioner Certified Nurse Practitioner 11/03/22 Anjana Meadows APRN - OPTICAL ADVISOR [address] [facility] [address] [place] [address] Nurse Practitioner Nurse Practitioner 11/01/23 Cuauhtemoc Stubbs MD [address] [facility] [address] [place] [address] Consulting Physician Gynecologic Oncology 11/05/23 Sleeve Baster Relationship Specialty Start Date End Date Christy Leach MD [address] [place] [phone] PCP - General 01/01/15 Jaqueline Grayson, INSURANCE CLAIM AUDITOR - OPTICAL ADVISOR [address] [facility] [address] [place] [address] Nurse Practitioner Certified Nurse Practitioner 11/03/22 Anjana Meadows APRN - OPTICAL ADVISOR [address] [facility] [place] [address] Nurse Practitioner Nurse Practitioner 11/01/23 Cuauhtemoc Stubbs MD [address] [facility] [address] [place] [address] Consulting Physician Gynecologic Oncology 11/05/23 Sleeve Baster Relationship Specialty Start Date End Date Christy Leahc MD [address] [place] [phone] PCP - General 01/01/15 Jaqueline Grayson APRN - OPTICAL ADVISOR [address] [facility] [address] [place] [address] Nurse Practitioner Certified Nurse Practitioner 11/03/22 Anjana Meadows APRN - OPTICAL ADVISOR [address] [facility] [place] [address] Nurse Practitioner Nurse Practitioner 11/01/23 Cuauhtemoc Stubbs MD [address] [facility] [address] [place] [address] Consulting Physician Gynecologic Oncology 11/05/23 Sleeve Baster Relationship Specialty Start Date End Date Christy Leach MD [address] [place] [address] PCP - General 01/01/15 Jaqueline Grayson APRN - OPTICAL ADVISOR [address] [facility] [address] [place] [address] Nurse Practitioner Certified Nurse Practitioner 11/03/22 Anjana Meadows INSURANCE CLAIM AUDITOR - OPTICAL ADVISOR [address] [facility] [place] [address] Nurse Practitioner Nurse Practitioner 11/01/23 Cuauhtemoc Stubbs MD [address] [facility] [address] [place] [address] Consulting Physician Gynecologic Oncology 11/05/23 Sleeve Baster Relationship Specialty Start Date End Date Christy Leach MD [address] [place] [phone] PCP - General 01/01/15 Jaqueline Grayson INSURANCE CLAIM AUDITOR - OPTICAL ADVISOR [address] [facility] [address] [place] [address] Nurse Practitioner Certified Nurse Practitioner 11/03/22 Anjana Meadows INSURANCE CLAIM AUDITOR - OPTICAL ADVISOR [address] [facility] [place] [address] Nurse Practitioner Nurse Practitioner 11/01/23 Cuauhtemoc Stubbs MD [address] [facility] [address] [place] [address] Consulting Physician Gynecologic Oncology 11/05/23 Sleeve Baster Relationship Specialty Start Date End Date Christy Mendez Jr., MD [address] [place] [phone] PCP - General Family Medicine 09/16/21 Sleeve Baster Relationship Specialty Start Date End Date Christy Leach MD [address] [place] [phone] PCP - General 01/01/15 Sleeve Baster Relationship Specialty Start Date End Date Christy Leach MD [address] [facility] [address] [place] [phone] PCP - General 01/01/15 Sleeve Baster Relationship Specialty Start Date End Date Christy Leach MD [address] [facility] [address] [place] [address] PCP - General 01/01/15 Sleeve Baster Relationship Specialty Start Date End Date Christy Leach MD [address] [facility] [address] [place] [address] PCP - General 01/01/15 Sleeve Baster Relationship Specialty Start Date End Date Christy Leach MD [address] [facility] [address] [place] [address] PCP - General 01/01/15 Sleeve Baster Relationship Specialty Start Date End Date Christy Leach MD [address] [facility] [address] [place] [phone] PCP - General 01/01/15 Jaqueline Grayson INSURANCE CLAIM AUDITOR - OPTICAL ADVISOR [address] [facility] [address] [place] [address] Nurse Practitioner Certified Nurse Practitioner 11/03/22 Anjana Meadows INSURANCE CLAIM AUDITOR - OPTICAL ADVISOR [address] [facility] [place] [address] Nurse Practitioner Nurse Practitioner 11/01/23 Cuauhtemoc Stubbs MD [address] [facility] [address] [place], [place] [address] Consulting Physician Gynecologic Oncology 11/05/23 Sleeve Baster Relationship Specialty Start Date End Date Christy Leach MD [address] [place] [phone] PCP - General 01/01/15 Jaqueline Grayson, INSURANCE CLAIM AUDITOR - OPTICAL ADVISOR [address] [place] [address] Nurse Practitioner Certified Nurse Practitioner 11/03/22 Anjana Meadows INSURANCE CLAIM AUDITOR - OPTICAL ADVISOR [address] [place] [address] Nurse Practitioner Nurse Practitioner 11/01/23 Cuauhtemoc Stubbs MD [address] [place] [address] Consulting Physician Gynecologic Oncology 11/05/23 Sleeve Baster Relationship Specialty Start Date End Date Christy Leach MD [address] [place] [phone] PCP - General 01/01/15 Jaqueline Grayson INSURANCE CLAIM AUDITOR - OPTICAL ADVISOR [address] [place] [address] Nurse Practitioner Certified Nurse Practitioner 11/03/22 Anjana Meadows INSURANCE CLAIM AUDITOR - OPTICAL ADVISOR [address] [place] [address] Nurse Practitioner Nurse Practitioner 11/01/23 Cuauhtemoc Stubbs MD [address] [place] [address] Consulting Physician Gynecologic Oncology 11/05/23 Sleeve Baster Relationship Specialty Start Date End Date Christy Leach MD [address] [facility] [address] [place] [phone] PCP - General 01/01/15 Jaqueline Grayson INSURANCE CLAIM AUDITOR - OPTICAL ADVISOR [address] [place] [address] Nurse Practitioner Certified Nurse Practitioner 11/03/22 Anjana Meadows INSURANCE CLAIM AUDITOR - OPTICAL ADVISOR [address] [place] [address] Nurse Practitioner Nurse Practitioner 11/01/23 Cuauhtemoc Stubbs MD [address] [place] [address] Consulting Physician Gynecologic Oncology 11/05/23 Sleeve Baster Relationship Specialty Start Date End Date Christy Leach MD [address] [facility] [address] [place] [phone] PCP - General 01/01/15 Jaqueline Grayson, INSURANCE CLAIM AUDITOR - OPTICAL ADVISOR [address] [place] [address] Nurse Practitioner Certified Nurse Practitioner 11/03/22 Anjana Meadows INSURANCE CLAIM AUDITOR - OPTICAL ADVISOR [address] [place] [address] Nurse Practitioner Nurse Practitioner 11/01/23 Cuauhtemoc Stubbs MD [address] [place] [address] Consulting Physician Gynecologic Oncology 11/05/23 Sleeve Baster Relationship Specialty Start Date End Date Christy Leach MD [address] [facility] [address] [place] [phone] PCP - General 01/01/15 Jaqueline Grayson, INSURANCE CLAIM AUDITOR - OPTICAL ADVISOR [address] [place] [address] Nurse Practitioner Certified Nurse Practitioner 11/03/22 Anjana Meadows, INSURANCE CLAIM AUDITOR - OPTICAL ADVISOR [address] [place] [address] Nurse Practitioner Nurse Practitioner 11/01/23 Cuauhtemoc Stubbs MD [address] [facility] [address] [place] [address] Consulting Physician Gynecologic Oncology 11/05/23 Sleeve Baster Relationship Specialty Start Date End Date Christy Leach MD [address] [facility] [address] [place] [phone] PCP - General 01/01/15 Jaqueline Grayson, INSURANCE CLAIM AUDITOR - OPTICAL ADVISOR [address] [place] [address] Nurse Practitioner Certified Nurse Practitioner 11/03/22 Anjana Meadows, INSURANCE CLAIM AUDITOR - OPTICAL ADVISOR [address] [place] [address] Nurse Practitioner Nurse Practitioner 11/01/23 Cuauhtemoc Stubbs MD [address] [place] [address] Consulting Physician Gynecologic Oncology 11/05/23 Sleeve Baster Relationship Specialty Start Date End Date Christy Leach MD [address] [place] [phone] PCP - General 01/01/15 Jaqueline Grayson INSURANCE CLAIM AUDITOR - OPTICAL ADVISOR [address] [facility] [address] [place] [address] Nurse Practitioner Certified Nurse Practitioner 11/03/22 Anjana Meadows INSURANCE CLAIM AUDITOR - OPTICAL ADVISOR [address] [facility] [place] [address] Nurse Practitioner Nurse Practitioner 11/01/23 Cuauhtemoc Stubbs MD [address] [facility] [address] [place] [address] Consulting Physician Gynecologic Oncology 11/05/23 Sleeve Baster Relationship Specialty Start Date End Date Christy Leach MD [address] [place] [phone] PCP - General 01/01/15 Jaqueline Grayson INSURANCE CLAIM AUDITOR - OPTICAL ADVISOR [address] [facility] [address] [place] [address] Nurse Practitioner Certified Nurse Practitioner 11/03/22 Anjana Meadows INSURANCE CLAIM AUDITOR - OPTICAL ADVISOR [address] [facility] [place] [address] Nurse Practitioner Nurse Practitioner 11/01/23 Cuauhtemoc Stubbs MD [address] [facility] [address] [place] [address] Consulting Physician Gynecologic Oncology 11/05/23 Sleeve Baster Relationship Specialty Start Date End Date Christy Leach MD [address] [place] [phone] PCP - General 01/01/15 Jaqueline Grayson INSURANCE CLAIM AUDITOR - OPTICAL ADVISOR [address] [facility] [address] [place] [address] Nurse Practitioner Certified Nurse Practitioner 11/03/22 Anjana Meadows INSURANCE CLAIM AUDITOR - OPTICAL ADVISOR [address] [facility] [address] [place] [address] Nurse Practitioner Nurse Practitioner 11/01/23 Cuauhtemoc Stubbs MD [address] [facility] [address] [place] [address] Consulting Physician Gynecologic Oncology 11/05/23 Sleeve Baster Relationship Specialty Start Date End Date Christy Leach MD [address] [place] [phone] PCP - General 01/01/15 Jaqueline Grayson INSURANCE CLAIM AUDITOR - OPTICAL ADVISOR [address] [facility] [address] [place] [address] Nurse Practitioner Certified Nurse Practitioner 11/03/22 Anjana Meadows INSURANCE CLAIM AUDITOR - OPTICAL ADVISOR [address] [facility] [address] [place] [address] Nurse Practitioner Nurse Practitioner 11/01/23 Cuauhtemoc Stubbs MD [address] [facility] [address] [place] [address] Consulting Physician Gynecologic Oncology 11/05/23 Sleeve Baster Relationship Specialty Start Date End Date Christy Leach MD [address] [place] [phone] PCP - General 01/01/15 Jaqueline Grayson APRN - OPTICAL ADVISOR [address] [facility] [address] [place] [address] Nurse Practitioner Certified Nurse Practitioner 11/03/22 Anjana Meadows APRN - OPTICAL ADVISOR [address] [facility] [place] [address] Nurse Practitioner Nurse Practitioner 11/01/23 Cuauhtemoc Stubbs MD [address] [facility] [address] [place] [address] Consulting Physician Gynecologic Oncology 11/05/23 Sleeve Baster Relationship Specialty Start Date End Date Christy Leach MD [address] [place] [phone] PCP - General 01/01/15 Jaqueline Grayson APRN - OPTICAL ADVISOR [address] [facility] [address] [place] [address] Nurse Practitioner Certified Nurse Practitioner 11/03/22 Anjana Meadows APRN - OPTICAL ADVISOR [address] [facility] [address] [place] [address] Nurse Practitioner Nurse Practitioner 11/01/23 Cuauhtemoc Stubbs MD [address] [facility] [address] [place] [address] Consulting Physician Gynecologic Oncology 11/05/23 Sleeve Baster Relationship Specialty Start Date End Date Christy Leach MD [address] [place] [phone] PCP - General 01/01/15 Jaqueline Grayson INSURANCE CLAIM AUDITOR - OPTICAL ADVISOR [address] [place], [place] [address] Nurse Practitioner Certified Nurse Practitioner 11/03/22 Anjana Meadows INSURANCE CLAIM AUDITOR - OPTICAL ADVISOR [address] [facility] [place] [address] Nurse Practitioner Nurse Practitioner 11/01/23 Cuauhtemoc Stubbs MD [address] [facility] [address] [place] [address] Consulting Physician Gynecologic Oncology 11/05/23 Sleeve Baster Relationship Specialty Start Date End Date Christy Leach MD [address] [place] [phone] PCP - General 01/01/15 Jaqueline Grayson INSURANCE CLAIM AUDITOR - OPTICAL ADVISOR [address] [facility] [address] [place], [place] [address] Nurse Practitioner Certified Nurse Practitioner 11/03/22 Anjana Meadows INSURANCE CLAIM AUDITOR - OPTICAL ADVISOR [address] [facility] [place] [address] Nurse Practitioner Nurse Practitioner 11/01/23 Cuauhtemoc Stubbs MD [address] [facility] [address] [place] [address] Consulting Physician Gynecologic Oncology 11/05/23 Sleeve Baster Relationship Specialty Start Date End Date Christy Leach MD [address] [place] [phone] PCP - General 01/01/15 Jaqueline Grayson INSURANCE CLAIM AUDITOR - OPTICAL ADVISOR [address] [place] [address] Nurse Practitioner Certified Nurse Practitioner 11/03/22 Anjana Meadows APRN - OPTICAL ADVISOR [address] [facility] [place] [address] Nurse Practitioner Nurse Practitioner 11/01/23 Cuauhtemoc Stubbs MD [address] [place] [address] Consulting Physician Gynecologic Oncology 11/05/23 Sleeve Baster Relationship Specialty Start Date End Date Christy Leach MD [address] [place] [phone] PCP - General 01/01/15 Jaqueline Grayson INSURANCE CLAIM AUDITOR - OPTICAL ADVISOR [address] [facility] [address] [place] [address] Nurse Practitioner Certified Nurse Practitioner 11/03/22 Anjana Meadows APRN - OPTICAL ADVISOR [address] [facility] [place] [address] Nurse Practitioner Nurse Practitioner 11/01/23 Cuauhtemoc Stubbs MD [address] [facility] [address] [place] [address] Consulting Physician Gynecologic Oncology 11/05/23 Sleeve Baster Relationship Specialty Start Date End Date Christy Leach MD [address] [place] [phone] PCP - General 01/01/15 Jaqueilne Grayson APRN - OPTICAL ADVISOR [address] [place] [address] Nurse Practitioner Certified Nurse Practitioner 11/03/22 Anjana Meadows APRN - OPTICAL ADVISOR [address] [facility] [place] [address] Nurse Practitioner Nurse Practitioner 11/01/23 Cuauhtemoc Stubbs MD [address] [place] [address] Consulting Physician Gynecologic Oncology 11/05/23 Sleeve Baster Relationship Specialty Start Date End Date Christy Leach MD [address] [facility] [address] [place] [phone] PCP - General 01/01/15 Jaqueline Grayson INSURANCE CLAIM AUDITOR - OPTICAL ADVISOR [address] [place] [address] Nurse Practitioner Certified Nurse Practitioner 11/03/22 Anjana Meadows APRN - OPTICAL ADVISOR [address] [facility] [place] [address] Nurse Practitioner Nurse Practitioner 11/01/23 Cuauhtemoc Stubbs MD [address] [place] [address] Consulting Physician Gynecologic Oncology 11/05/23 Sleeve Baster Relationship Specialty Start Date End Date Christy Leach MD [address] [place] [phone] PCP - General 01/01/15 Jaqueline Grayson INSURANCE CLAIM AUDITOR - OPTICAL ADVISOR [address] [place] [address] Nurse Practitioner Certified Nurse Practitioner 11/03/22 Anjana Meadows APRN - OPTICAL ADVISOR [address] [place] [address] Nurse Practitioner Nurse Practitioner 11/01/23 Cuauhtemoc Stubbs MD [address] [place] [address] Consulting Physician Gynecologic Oncology 11/05/23 Sleeve Baster Relationship Specialty Start Date End Date Christy Leach MD [address] [place] [phone] PCP - General 01/01/15 Jaqueline Grayson APRN - OPTICAL ADVISOR [address] [place] [address] Nurse Practitioner Certified Nurse Practitioner 11/03/22 Anjana Meadows APRN - OPTICAL ADVISOR [address] [place] [address] Nurse Practitioner Nurse Practitioner 11/01/23 Cuauhtemoc Stubbs MD [address] [place] [address] Consulting Physician Gynecologic Oncology 11/05/23 Sleeve Baster Relationship Specialty Start Date End Date Christy Leach MD [address] [place] [phone] PCP - General 01/01/15 Jaqueline Grayson APRN - OPTICAL ADVISOR [address] [place] [address] Nurse Practitioner Certified Nurse Practitioner 11/03/22 Anjana Meadows APRN - CNP [address] [facility] [address] [place] [address] Nurse Practitioner Nurse Practitioner 11/01/23 Cuauhtemoc Stubbs MD [address] [facility] [address] [place] [address] Consulting Physician Gynecologic Oncology 11/05/23 Source Comments (unrecognize d section and content) In the event this informatio n is protected by the Federal Confidentiality of Alcohol and Drug Abuse Patient Records regulations: The Federal rules restrict any use of the information to criminally investigate or prosecute any alcohol or drug abuse patient.[facility] the event this information is protected by the Federal Confidentiality of Alcohol and Drug Abuse Patient Records regulations: The Federal rules restrict any use of the information to criminally investigate or prosecute any alcohol or drug abuse patient.[facility] CampusIn the event this information is protected by the Federal Confidentiality of Alcohol and Drug Abuse Patient Records regulations: The Federal rules restrict any use of the information to criminally investigate or prosecute any alcohol or drug abuse patient.[facility] CampusIn the event this information is protected by the Federal Confidentiality of Alcohol and Drug Abuse Patient Records regulations: The Federal rules restrict any use of the information to criminally investigate or prosecute any alcohol or drug abuse patient.[facility] CampusIn the event this information is protected by the Federal Confidentiality of Alcohol and Drug Abuse Patient Records regulations: The Federal rules restrict any use of the information to criminally investigate or prosecute any alcohol or drug abuse patient.[facility] CampusIn the event this information is protected by the Federal Confidentiality of Alcohol and Drug Abuse Patient Records regulations: The Federal rules restrict any use of the information to criminally investigate or prosecute any alcohol or drug abuse patient.[facility] CampusIn the event this information is protected by the Federal Confidentiality of Alcohol and Drug Abuse Patient Records regulations: The Federal rules restrict any use of the information to criminally investigate or prosecute any alcohol or drug abuse patient.[facility] CampusIn the event this information is protected by the Federal Confidentiality of Alcohol and Drug Abuse Patient Records regulations: The Federal rules restrict any use of the information to criminally investigate or prosecute any alcohol or drug abuse patient.[facility] CampusIn the event this information is protected by the Federal Confidentiality of Alcohol and Drug Abuse Patient Records regulations: The Federal rules restrict any use of the information to criminally investigate or prosecute any alcohol or drug abuse patient.[facility] CampusIn the event this information is protected by the Federal Confidentiality of Alcohol and Drug Abuse Patient Records regulations: The Federal rules restrict any use of the information to criminally investigate or prosecute any alcohol or drug abuse patient.[facility] CampusIn the event this information is protected by the Federal Confidentiality of Alcohol and Drug Abuse Patient Records regulations: The Federal rules restrict any use of the information to criminally investigate or prosecute any alcohol or drug abuse patient.[facility] CampusIn the event this information is protected by the Federal Confidentiality of Alcohol and Drug Abuse Patient Records regulations: The Federal rules restrict any use of the information to criminally investigate or prosecute any alcohol or drug abuse patient.[facility] CampusIn the event this information is protected by the Federal Confidentiality of Alcohol and Drug Abuse Patient Records regulations: The Federal rules restrict any use of the information to criminally investigate or prosecute any alcohol or drug abuse patient.[facility] CampusIn the event this information is protected by the Federal Confidentiality of Alcohol and Drug Abuse Patient Records regulations: The Federal rules restrict any use of the information to criminally investigate or prosecute any alcohol or drug abuse patient.[facility] CampusIn the event this information is protected by the Federal Confidentiality of Alcohol and Drug Abuse Patient Records regulations: The Federal rules restrict any use of the information to criminally investigate or prosecute any alcohol or drug abuse patient.[facility] Reason for Visit (unrecogniz ed section and [...] CT abdomen pelvis w contrast Anjana Meadows, INSURANCE CLAIM AUDITOR - OPTICAL ADVISOR [address] [place] [address] [facility] [address] [place] [phone] Referral ID Status Reason Start Date Expiration Date Visits Re quested Visits Authorized [id number] Closed 11/01/2023 10/31/2024 1 1 Reason Comments Wound Care Nurse Visit/Bilat. P rofore change Reason Comments Other Specialty Diagnoses / Procedures Referred By Elias piedra Referred To Contact Cardiology Diagnoses Essential (primary) hypertension Cardiac murmur, unspecified Procedures Transthoracic echocardiogram (TTE) complete with contrast, bubble, strain, and 3D PRN WI ECHO TTHRC R-T 2D W/WOM-MODE COMPL SPEC&COLR D WI TTE W OR WO FOL WCON,DOPPLER Christy Leach MD [address] [place] [address] [facility] [address] [place] [address] [place] [phone] Referral ID Status Reason Start Date Expiration Date Visits Re quested Visits Authorized [id number] Closed 02/28/2024 02/27/2025 1 1 Reason Onset [...] Diagnoses Hyperglycemia Procedures . Wilner Kingston MD [address] [place] [address] Phone: tel: fax: [facility] [address] [place] [phone] Phone: tel: Referral ID Status Reason Start Date Expiration Date Visits Re quested Visits Authorized [id number] 1 Reason Onset Date Comments Hypertension 12/04/2024 Reason Comments Endometrial Cancer Specialty Diagnoses / Procedures Referred By Elias piedra Referred To Contact Gynecologic Oncology Diagnoses Malignant neoplasm of corpus uteri, unspecified (HCC) Procedures OUTPATIENT SERVICES-GENERAL Christy Leach MD [address] [place] [address] Phone: tel: fax: Cuauhtemoc Stubbs MD [address] [facility] [address] [place] [address] Phone: tel: fax: Referral ID Status Reason Start Date Expiration Date V isits Requested Visits Authorized [id number] Pending Review 12/05/2024 12/05/2025 1 1 Reason [...] 1 Procedures . Jennifer León DO [address] [place] [id number] Phone: tel: fax: [facility] [address] [place] [phone] Phone: tel: Referral ID Status Reason Start Date Expiration Date Visits Re quested Visits Authorized [id number] 1 1 Scheduled Active and Recently Administ [...] RN)[phone] (Given - Provider: Gisel Sam RN) 0980 (Given - Provider: Rayne Kerr, VALENTÍN) Continuous [...] Kat Jiménez RN)1232 (Given - Provider: Kat Jiménez, RN)[phone] (Not Given - Provider: Reyes Golden [...] soap and water. Apply miconazole powder. Leave HEALTH EDUCATION ASSISTANT. Apply BID and PRN Bilateral medial thighs: Fungal Dermatitis -Cleanse with Hibiclens soap and water. Apply miconazole powder. Leave HEALTH EDUCATION ASSISTANT. Apply BID and PRN Sacrum extending to [...] soap and water. Apply miconazole powder. Leave HEALTH EDUCATION ASSISTANT. Apply BID and PRN Bilateral medial thighs: Fungal Dermatitis -Cleanse with Hibiclens soap and water. Apply miconazole powder. Leave HEALTH EDUCATION ASSISTANT. Apply BID and PRN Sacrum extending to [...] soap and water. Apply miconazole powder. Leave HEALTH EDUCATION ASSISTANT. Apply BID and PRN Bilateral medial thighs: Fungal Dermatitis -Cleanse with Hibiclens soap and water. Apply miconazole powder. Leave GEREMIAS. 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 Apply miconazole powder to wound bed, followed by ET mix. Leave HEALTH EDUCATION ASSISTANT. Apply BID and PRN naloxone (Narcan) injection 0.4 mg 0.4 mg, IntraVENous, Every 5 min PRN, opioid reversal, respiratory depression, Starting on Sun05/11/25 at 2357, +++ For RR <10, pinpoint pupils, over sedation for opioid reversal - MUST notify construction helper provider immediately after first dose, may give [...] on Sun05/11/25 at 2248, 1st Line. Give WI if patient is unable to take orally [...] on Sun05/11/25 at 2248, 1st Line. Give WI if patient is unable to take orally [...] BE BASED ON THE PRIMARY CLINICAL RECORDS. [facility]. provides no warranty or guarantee of the accuracy or completeness of information in this document.
[2025-07-20 11:22] LABS: INR Fingerstick 1.4
== END ==
LOC: OLS.SANC 05:00
PROVIDERS: Visit Provider Internal Medicine
DX: Z79.01 Long term (current) use of anticoagulants (principal)
CPT/HCPCS: 36416; 85610